=== PATIENT | male | born 1965 | race Two or more races ===

== ENCOUNTER 2020-08-17 12:12 | Outpatient (REF) | payer OTHER, SELFPAY ==
[2020-08-17 12:46] LABS: Basophils Absolute Auto 0.1 X10*3/uL (0.0-0.2); Basophils Percent Auto 1.9 % (0-2); Eosinophils Absolute Auto 0.9 X10*3/uL (0.0-0.4); Eosinophils Percent Auto 21.3 % (0-4); Hematocrit 42.2 % (42-52); Hemoglobin 13.6 g/dl (14.0-18.0); Imm Gran Abs Auto 0.01 X10*3/uL (0.00-0.03); Imm Gran Pct Auto 0.2 % (0.0-0.4); Lymphocytes Absolute Auto 1.8 X10*3/uL (1.2-4.9); Mean Corpuscular HGB Conc 32.2 g/dl (31.0-36.0); Mean Corpuscular Hemoglobin 31.1 pg (27.0-33.0); Mean Corpuscular Volume 96.6 fL (80-98); Mean Platelet Volume 10.8 fL (9.4-12.4); Monocytes Absolute Auto 0.5 X10*3/uL (0.1-1.2); Neutrophils Percent Auto 23.6 % (45-73); Platelet Count 218 X10*3/uL (160-400); Red Blood Count 4.37 X10*6/uL (4.60-5.80); Red Cell Distribution Width 14.4 % (11.0-16.0); White Blood Count 4.3 X10*3/uL (4.8-10.8)
[2020-08-17 13:17] LABS: Alanine Aminotransferase 19 U/L (0-40); Aspartate Amino Transferase 20 U/L (5-37); Estimated Glomerular Filt Rate > 60
[2020-08-17 13:22] LABS: MANUAL DIFF FLAG SCAN
[2020-08-17 13:48] LABS: SLIDE REVIEW VERIFIED
[2020-08-18 17:47] LABS: Absolute CD3 Count 1626 cells/uL (840-3060); Absolute CD4 Count 835 cells/uL (490-1740); Absolute CD8 Count 853 cells/uL (180-1170); Absolute Lymphocytes 1971 cells/uL (850-3900); CD4 CD8 Ratio 0.98 (0.86-5.00); Percent CD3 Cells 83 % (57-85); Percent CD4 Cells 42 % (30-61); Percent CD8 Cells 43 % (12-42)
[2020-08-20 15:47] LABS: HIV RNA PCR Qn Copies <20 NOT DETECTED copies/mL (NOT DETECTED); HIV RNA PCR Qn Log Copies <1.30 NOT DETECTED (NOT DETECTED)
== END 2020-08-17 12:13 | disposition home or self-care (01) ==
LOC: HO.LAB 12:12
PROVIDERS: Visit Provider Internal Medicine Infectious Disease
DX: B20 Human immunodeficiency virus [HIV] disease (principal)
CPT/HCPCS: 36415; 82565; 84450; 84460; 85025; 86359; 86360; 87536

== ENCOUNTER 2020-12-17 08:45 | Emergency (ER) | payer OTHER, SELFPAY ==
--- NOTE | ~2020-12-17 | CT_ITS ---
EXAMINATION: CT ABDOMEN AND PELVIS WITHOUT CONTRAST CLINICAL INFORMATION: Abdominal pain. No bowel movement in 5 days. Nausea. COMPARISON: CT abdomen and pelvis noncontrast 04/03/2020 TECHNIQUE: Multidetector volumetric imaging was performed from the superior aspect of the liver through the pubic symphysis. Sagittal and coronal reformatted images were obtained on the technologist's workstation. This CT examination was performed using dose optimization techniques as appropriate, variously including the following: *Automated exposure control *Adjustment of mA and/or kV according to patient size (this includes techniques or standardized protocols for targeted exams where dose is matched to indication/reason for exam; i.e. extremities or head) *Use of iterative reconstruction technique DLP: 347 mGy-cm FINDINGS: LUNG BASES: The visualized lung bases are unremarkable. LIVER, GALLBLADDER, AND BILIARY TREE: The liver is normal in size and smooth in contour. There is mild hepatic steatosis. No focal hepatic parenchymal lesion or intrahepatic ductal dilatation. The gallbladder is unremarkable with no evidence of radiopaque gallstones, gallbladder wall thickening, or obvious pericholecystic inflammatory changes. PANCREAS: Mildly atrophic. No duct dilatation or retroperitoneal inflammatory changes. SPLEEN: Normal in size. Small splenule again seen left upper quadrant, 1 cm. ADRENAL GLANDS: Mild fullness left adrenal stable. Right adrenal unremarkable. KIDNEYS AND URETERS: The kidneys are normal in size and smooth in contour and show no hydronephrosis. There is no hydroureter or perinephric stranding. Again, multiple small nonobstructing intrarenal calculi are present under 5 mm. No ureteral calculi. BLADDER: Unremarkable. GASTROINTESTINAL TRACT: There is moderate stool throughout the colon. There is no small or large bowel dilatation or focal inflammatory changes in the bowel or mesentery. No rectal fecal impaction. The appendix is not demonstrated with certainty and not visible on prior CT 2020 as well. There are no inflammatory changes around the terminal ileum or cecum. No ascites or fluid collection. ABDOMINAL WALL: No significant hernia is appreciated. LYMPH NODES: No lymphadenopathy. VASCULAR: Unremarkable. PELVIC VISCERA: Unremarkable. OSSEOUS STRUCTURES: Unremarkable. CT/CT abdomen pelvis wo con IMPRESSION: 1. Moderate stool throughout colon consistent with clinical history. No bowel obstruction or focal inflammatory changes. 2. Bilateral small nonobstructing renal calculi similar to prior CT 2020. No hydronephrosis or perinephric stranding.
[2020-12-17 09:28] VITALS: BP 156/100; PULSE 75; RESP 16; TEMP 36.6; O2SAT 99; BMI 25.1
--- NOTE | 2020-12-17 09:29 | ECG_ITS ---
Test Reason : CHEST PAIN Blood Pressure : / mmHG Vent. Rate : 070 BPM Atrial Rate : 070 BPM P-R Int : 168 ms QRS Dur : 106 ms QT Int : 414 ms P-R-T Axes : 063 067 056 degrees QTc Int : 447 ms Normal sinus rhythm Incomplete right bundle branch block Borderline ECG When compared with ECG of 02-MAY-2020 08:16, Vent. rate has decreased BY 36 BPM Referred By: Krista Thomas Electronically Signed By:TALIB LÓPEZ
--- NOTE | 2020-12-17 09:46 | ED_ITS ---
HPI - Abdominal Pain General Chief Complaint: Abdominal Pain Stated Complaint: ABD PAIN Time Seen by Provider: 12/17/20 09:29 Source: patient Mode of arrival: ambulatory Limitations: no limitations History of Present Illness HPI narrative: 55 y/o male with HIV, anxiety, depression, kidney stones, seizures, asthma who presents to the ED c/o upper & central abdominal pain for the last 5 days. He has not had a bowel movement in 5 days. He went to the pharmacy and got dulcolax with no improvement. He reports nausea but no vomiting. No fever or chills. He reports he walked to the ER from his home, about 1 mile when he develop chest pain on the walk. He arrives diaphoretic with reproducible right sided chest discomfort. Pain is constant, does not radiate and is aching in nature. He denies SOB. He states his whole body hurts. 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 MD elicited complaint: abdominal pain Pertinent past history: HIV Onset (ago): day(s) (5) Pain Consistency: constant Location: epigastric and periumbilical Severity: moderate Quality: cramping and aching Radiation: none Migration to: no migration Exacerbating factors: eating Relieving factors: nothing Associated symptoms: nausea and constipation Related Data Home Medications Medication Instructions Recorded Confirmed albuterol sulfate 90 mcg/actuation 2 puff INHALATION Q4-6H PRN 09/27/20 aerosol inhaler Previous Rx's Medication Instructions Recorded albuterol sulfate 90 mcg/actuation 2 puff PO Q4-6H PRN 30 Days #8.5 g 09/27/20 aerosol inhaler hydroxyzine HCl 25 mg tablet 25 mg PO Q8H PRN #90 tab 11/14/20 bisacodyl [Dulcolax (bisacodyl)] 10 mg MO DAILY PRN #12 ea 12/17/20 docusate sodium [Colace] 100 mg PO BID #30 cap 12/17/20 ibuprofen 600 mg PO Q8H PRN #10 tab 12/17/20 polyethylene glycol 3350 [Miralax] 17 g PO DAILY #119 g 12/17/20 Allergies Allergy/AdvReac Type Severity Reaction Status Date / Time codeine Allergy Mild RASH Unverified 05/27/20 15:16 [From Tylenol-Codeine #3] levofloxacin [From LEVAQUIN] Allergy Mild Rash Unverified 05/27/20 15:16 metoclopramide [From Reglan] Allergy Mild RASH Unverified 05/27/20 15:16 acetaminophen Allergy Unknown Verified 10/03/19 00:00 [Tylenol-Codeine #3] Motrin Allergy Unknown REflux Unverified 01/06/20 00:00 Penicillins [PENICILLINS] Allergy Unknown RASH Unverified 05/27/20 15:16 tramadol [From Ultram] AdvReac Mild N/V Unverified 05/27/20 15:16 SEASONAL ALLERGIES Allergy Intermediate EYE Uncoded 05/27/20 15:16 DRAINAGE penicillin Allergy Unknown Uncoded 01/06/20 00:00 Review of Systems Review of Systems Constitutional: No Fever, No Chills ENT/Mouth: No sore throat, No Rhinorrhea, No Swallowing Difficulty Eyes: No Eye Pain, No Swelling, No Redness Cardiovascular: + Chest Pain, No SOB, No Orthopnea, No Edema Respiratory: No Cough, No Sputum, No Wheezing, No dyspnea Gastrointestinal: +Nausea, No Vomiting, No Diarrhea, + abdominal Pain, No Hematochezia, No Melena Genitourinary: No Dysuria, No Urinary Frequency, No Hematuria Musculoskeletal: + joint pain, + Myalgias Skin: No Skin Lesions, No rash Neuro: No Weakness, No Numbness, No Dizziness, No Headache Psych: No Anxiety/Panic, No Depression Heme/Lymph: No Bruising, No Lymphadenopathy Endocrine: No Polyuria, No Polydipsia Physical Exam Vital Signs: Vital Signs: Last Vital Signs Temp 97.8 F 12/17/20 09:28 Pulse 80 12/17/20 12:19 Resp 18 12/17/20 12:19 BP 136/93 H 12/17/20 12:19 Pulse Ox 97 12/17/20 12:19 Body Mass Index 25.1 Appearance: Alert. Oriented X3. No acute distress. Eyes: Pupils equal, round and reactive to light. ENT: Pharynx normal. Neck: Normal inspection. Neck supple. CVS: Normal heart rate and rhythm. Pulses normal. Respiratory: No respiratory distress. Breath sounds normal. Right sided anterior chest wall tenderness. Abdomen: Softly distended with central and epigastric tenderness. No rebound or guarding. +BS x4 Skin: Skin warm and dry. Normal skin color. Normal skin turgor. No rashes. Extremities: No lower extremity edema. Neuro: Oriented X 3. No motor deficit. No sensory deficit. Course Course Course Narrative: 55 y/o male with history of HIV presenting with 5 days of abdominal pain in the setting of constipation. No clinical signs of obstruction. His chest pain is reproducible. Will get EKG, labs and CT scan for further evaluation. Reevaluation(s) Reevaluation #1: Labs are unremarkable. CT scan showing moderate stool burden without evidence of obstruction. EKG unchanged from prior with flat troponin. Chest discomfort is reproducible and likely muscular in nature. Will treat with lactulose and senna and reassess. Reevaluation #2: Patient feeling improved. Stable for discharge. MDM - Abdominal Pain Medical Records Attestation: I reviewed the patient's medical records. Lab Data Attestation: I reviewed the patient's lab results. Result diagrams: 12/17/20 10:09 12/17/20 10:09 Labs: Lab Results 12/17/20 12/17/20 12/17/20 Range/Units 10:09 10:09 10:09 WBC 4.0 L (4.8-10.8) X10*3/uL RBC 4.53 L (4.60-5.80) X10*6/uL Hgb 14.5 (14.0-18.0) g/dl Hct 44.2 (42-52) % MCV 97.6 (80-98) fL MCH 32.0 (27.0-33.0) pg MCHC 32.8 (31.0-36.0) g/dl RDW 12.8 (11.0-16.0) % Plt Count 230 (160-400) X10*3/uL MPV 10.7 (9.4-12.4) fL Immature Gran % (Auto) 0.3 (0.0-0.4) % Neut % (Auto) 56.8 (45-73) % Lymph % (Auto) 23.2 (20-40) % [place] % (Auto) 7.8 (2-11) % Eos % (Auto) 10.6 H (0-4) % Baso % (Auto) 1.3 (0-2) % Lymph # (Auto) 0.9 L (1.2-4.9) X10*3/uL [place] # (Auto) 0.3 (0.1-1.2) X10*3/uL Eos # (Auto) 0.4 (0.0-0.4) X10*3/uL Baso # (Auto) 0.1 (0.0-0.2) X10*3/uL Abs Immat Gran (auto) 0.01 (0.00-0.03) X10*3/uL Absolute Neuts (auto) 2.3 (2.0-8.3) X10*3/uL Absolute Nucleated RBC 0.000 (0.0-0.012) X10*3/uL Nucleated RBC % (auto) 0.0 (0.0-0.2) /100WBC Hold Blue Top SEE NOTE Sodium 139 (135-145) mmol/L Potassium 4.5 (3.3-5.1) mmol/L Chloride 100 (96-108) mmol/L Carbon Dioxide 32 H (22-29) mmol/L Anion Gap 12 (12-20) BUN 12 (9-16) mg/dL Creatinine 0.98 (0.5-1.4) mg/dL Estim Creat Clear Calc 86.9 Estimated GFR > 60 Random Glucose 107 (60-115) mg/dL Calcium 9.0 (8.4-10.2) mg/dL Magnesium 2.2 (1.6-2.6) mg/dL Total Bilirubin 0.7 (0.0-1.0) mg/dL Direct Bilirubin 0.3 (0.0-0.5) mg/dL AST 29 D (5-37) U/L ALT 32 (0-40) U/L Alkaline Phosphatase 70 (39-117) U/L Troponin I High Sens (<3.5-35.0) ng/L Total Protein 7.4 (6.5-8.0) g/dL Albumin 4.3 (3.5-5.0) g/dL Lipase 4 L (8-78) U/L 12/17/20 Range/Units 10:09 WBC (4.8-10.8) X10*3/uL RBC (4.60-5.80) X10*6/uL Hgb (14.0-18.0) g/dl Hct (42-52) % MCV (80-98) fL MCH (27.0-33.0) pg MCHC (31.0-36.0) g/dl RDW (11.0-16.0) % Plt Count (160-400) X10*3/uL MPV (9.4-12.4) fL Immature Gran % (Auto) (0.0-0.4) % Neut % (Auto) (45-73) % Lymph % (Auto) (20-40) % [place] % (Auto) (2-11) % Eos % (Auto) (0-4) % Baso % (Auto) (0-2) % Lymph # (Auto) (1.2-4.9) X10*3/uL [place] # (Auto) (0.1-1.2) X10*3/uL Eos # (Auto) (0.0-0.4) X10*3/uL Baso # (Auto) (0.0-0.2) X10*3/uL Abs Immat Gran (auto) (0.00-0.03) X10*3/uL Absolute Neuts (auto) (2.0-8.3) X10*3/uL Absolute Nucleated RBC (0.0-0.012) X10*3/uL Nucleated RBC % (auto) (0.0-0.2) /100WBC Hold Blue Top Sodium (135-145) mmol/L Potassium (3.3-5.1) mmol/L Chloride (96-108) mmol/L Carbon Dioxide (22-29) mmol/L Anion Gap (12-20) BUN (9-16) mg/dL Creatinine (0.5-1.4) mg/dL Estim Creat Clear Calc Estimated GFR Random Glucose (60-115) mg/dL Calcium (8.4-10.2) mg/dL Magnesium (1.6-2.6) mg/dL Total Bilirubin (0.0-1.0) mg/dL Direct Bilirubin (0.0-0.5) mg/dL AST (5-37) U/L ALT (0-40) U/L Alkaline Phosphatase (39-117) U/L Troponin I High Sens < 3.5 (<3.5-35.0) ng/L Total Protein (6.5-8.0) g/dL Albumin (3.5-5.0) g/dL Lipase (8-78) U/L ECG Data Attestation: I personally reviewed and interpreted this ECG as follows: ECG interpretation date: 12/17/20 ECG interpretation time: 09:56 Prior ECG tracings: available for review Interpretation: normal sinus rhythm, HR 70 bpm, incomplete RBBB, normal MO interval, normal QTC unchanged from prior Discharge Plan Discharge Clinical Impression: Acute chest wall pain Constipation Qualifiers: Constipation type: unspecified constipation type Qualified Code(s): K59.00 - Constipation, unspecified Patient Disposition: Home, Self-Care Instructions: Constipation (ED), High Fiber Diet (ED) Additional Instructions: Your lab workup today was unremarkable. Your EKG was unchanged from prior. Your CT scan showed constipation - this is what is causing your abdominal discomfort. Recommend increasing your water intake and fiber intake. Recommend Miralax 17 gram daily, Colace 100 mg two times per day. Recommend NEEDED dulcolax suppository if you have not had a bowel movement by tonight. Your chest wall pain is likely muscular in nature. Recommend rest, no heavy listing. Take Tylenol and/or Motrin as needed for pain. If you have any worsening symptoms come back to the ER for further evaluation. Prescriptions: New polyethylene glycol 3350 [Miralax] 17 gram/dose powder 17 g PO DAILY Qty: 119 RF: 0 docusate sodium [Colace] 100 mg capsule 100 mg PO BID Qty: 30 RF: 0 bisacodyl [Dulcolax (bisacodyl)] 10 mg suppository 10 mg MO DAILY PRN (Reason: constipation) Qty: 12 RF: 0 ibuprofen 600 mg tablet 600 mg PO Q8H PRN (Reason: pain) Qty: 10 RF: 0 No Action albuterol sulfate [ProAir HFA] 90 mcg/actuation HFA aerosol inhaler 2 puff inhalation Q4-6H PRNRF: 0 albuterol sulfate 90 mcg/actuation HFA aerosol inhaler 2 puff PO Q4-6H PRN (Reason: for dyspnea) 30 Days Qty: 8.5 RF: 2 hydroxyzine HCl 25 mg tablet 25 mg PO Q8H PRN (Reason: for anxiety) Qty: 90 RF: 0 PMFSH Past Medical History Attestation statement: The following information was validated with the patient. Medical History Depression Hemorrhoids HIV (human immunodeficiency virus infection) Substance abuse Social History Social History Advance Directives: No Advance Directives Information Provided: No
[2020-12-17 10:14] LABS: MANUAL DIFF FLAG NO
[2020-12-17] MEDS: 0.9 % Sodium Chloride 1,000 ML 999 ML IVCONT (10:18)
[2020-12-17] MEDS: ondansetron HCL 4 MG/2 ML VIAL IVPUSH (10:18)
[2020-12-17 10:31] LABS: Basophils Absolute Auto 0.1 X10*3/uL (0.0-0.2); Basophils Percent Auto 1.3 % (0-2); Eosinophils Absolute Auto 0.4 X10*3/uL (0.0-0.4); Eosinophils Percent Auto 10.6 % (0-4); Hematocrit 44.2 % (42-52); Hemoglobin 14.5 g/dl (14.0-18.0); Imm Gran Abs Auto 0.01 X10*3/uL (0.00-0.03); Imm Gran Pct Auto 0.3 % (0.0-0.4); Lymphocytes Absolute Auto 0.9 X10*3/uL (1.2-4.9); Lymphocytes Percent Auto 23.2 % (20-40); Mean Corpuscular HGB Conc 32.8 g/dl (31.0-36.0); Mean Corpuscular Volume 97.6 fL (80-98); Mean Platelet Volume 10.7 fL (9.4-12.4); Monocytes Absolute Auto 0.3 X10*3/uL (0.1-1.2); Monocytes Percent Auto 7.8 % (2-11); Neutrophils Absolute Auto 2.3 X10*3/uL (2.0-8.3); Neutrophils Percent Auto 56.8 % (45-73); Platelet Count 230 X10*3/uL (160-400); Red Blood Count 4.53 X10*6/uL (4.60-5.80); Red Cell Distribution Width 12.8 % (11.0-16.0)
[2020-12-17 10:49] LABS: Alanine Aminotransferase 32 U/L (0-40); Albumin Level 4.3 g/dL (3.5-5.0); Alkaline Phosphatase 70 U/L (39-117); Anion Gap 12 (12-20); Aspartate Amino Transferase 29 U/L (5-37); Bilirubin Direct 0.3 mg/dL (0.0-0.5); Bilirubin Total 0.7 mg/dL (0.0-1.0); Blood Urea Nitrogen 12 mg/dL (9-16); Carbon Dioxide 32 mmol/L (22-29); Chloride 100 mmol/L (96-108); Creatinine Clr Calc Pharmacy 86.9; Estimated Glomerular Filt Rate > 60; Glucose Random 107 mg/dL (60-115); Lipase 4 U/L (8-78); Magnesium 2.2 mg/dL (1.6-2.6); Potassium 4.5 mmol/L (3.3-5.1); Sodium 139 mmol/L (135-145); Total Protein 7.4 g/dL (6.5-8.0)
[2020-12-17 10:52] LABS: Troponin-I High Sensitivity < 3.5 ng/L (<3.5-35.0)
[2020-12-17] MEDS: Lactulose 20 GM/30 ML SOLUTION PO (11:45)
--- NOTE | 2020-12-17 12:07 | PC.NURSE ---
medicated per emar, tolerating po w/o issue. updated about plan of care by provider.
[2020-12-17 12:19] VITALS: BP 136/93; PULSE 80; RESP 18; O2SAT 97
== END 2020-12-17 13:08 | disposition home or self-care (01) ==
PROVIDERS: Physician Assistant; Emergency Provider Emergency Medicine; PCP Internal Medicine
DX: R07.89 Other chest pain (principal); K59.00 Constipation, unspecified; B20 Human immunodeficiency virus [HIV] disease; J45.909 Unspecified asthma, uncomplicated; F41.9 Anxiety disorder, unspecified; F19.10 Other psychoactive substance abuse, uncomplicated; Z87.442 Personal history of urinary calculi
CPT/HCPCS: 36415; 74176; 80048; 80076; 83690; 83735; 84484; 85025; 93005; 96360; 96374; 99284; J2405

== ENCOUNTER 2021-01-19 11:03 | Outpatient (REF) | payer OTHER, SELFPAY ==
--- NOTE | ~2021-01-19 | XR_ITS ---
EXAMINATION: LEFT SHOULDER AND CERVICAL SPINE X-RAY CLINICAL INFORMATION: Left shoulder pain COMPARISON: Previous cervical spine x-ray most recent April 2019 TECHNIQUE: 5 views of the cervical spine. 4 views of the left shoulder FINDINGS: Left shoulder: Bone alignment is normal. No acute fracture or dislocation is seen. There may be old left rib fractures. The joint spaces are normal. Soft tissues are normal. Cervical spine: Bone alignment is normal. No fracture or dislocation is seen. There is degenerative spondylosis and degenerative disc disease at C3-C4. There is right-sided neural foraminal narrowing from bony osteophyte at C3-C4. There is left-sided neuroforaminal narrowing from bony osteophyte at C2-C3, C3-C4 and C4-C5. Prevertebral soft tissues are normal. XR/XR cervical spine min 6V IMPRESSION: Left shoulder: Unremarkable exam. Cervical spine: Degenerative spondylosis and degenerative disc disease at C3-C4. Bilateral neural foraminal narrowing from bony osteophyte, left greater than right.
--- NOTE | ~2021-01-19 | XR_ITS ---
EXAMINATION: LEFT SHOULDER AND CERVICAL SPINE X-RAY CLINICAL INFORMATION: Left shoulder pain COMPARISON: Previous cervical spine x-ray most recent April 2019 TECHNIQUE: 5 views of the cervical spine. 4 views of the left shoulder FINDINGS: Left shoulder: Bone alignment is normal. No acute fracture or dislocation is seen. There may be old left rib fractures. The joint spaces are normal. Soft tissues are normal. Cervical spine: Bone alignment is normal. No fracture or dislocation is seen. There is degenerative spondylosis and degenerative disc disease at C3-C4. There is right-sided neural foraminal narrowing from bony osteophyte at C3-C4. There is left-sided neuroforaminal narrowing from bony osteophyte at C2-C3, C3-C4 and C4-C5. Prevertebral soft tissues are normal. XR/XR shoulder LT min 2V IMPRESSION: Left shoulder: Unremarkable exam. Cervical spine: Degenerative spondylosis and degenerative disc disease at C3-C4. Bilateral neural foraminal narrowing from bony osteophyte, left greater than right.
[2021-01-19 13:31] LABS: MANUAL DIFF FLAG NO
[2021-01-19 13:44] LABS: Basophils Percent Auto 0.4 % (0-2); Eosinophils Absolute Auto 0.3 X10*3/uL (0.0-0.4); Eosinophils Percent Auto 4.1 % (0-4); Hematocrit 42.8 % (42-52); Hemoglobin 14.4 g/dl (14.0-18.0); Imm Gran Abs Auto 0.02 X10*3/uL (0.00-0.03); Imm Gran Pct Auto 0.3 % (0.0-0.4); Lymphocytes Absolute Auto 0.7 X10*3/uL (1.2-4.9); Lymphocytes Percent Auto 9.4 % (20-40); Mean Corpuscular HGB Conc 33.6 g/dl (31.0-36.0); Mean Corpuscular Hemoglobin 32.3 pg (27.0-33.0); Mean Platelet Volume 11.2 fL (9.4-12.4); Monocytes Absolute Auto 0.7 X10*3/uL (0.1-1.2); Neutrophils Absolute Auto 6.1 X10*3/uL (2.0-8.3); Neutrophils Percent Auto 76.8 % (45-73); Platelet Count 225 X10*3/uL (160-400); Red Blood Count 4.46 X10*6/uL (4.60-5.80); Red Cell Distribution Width 12.6 % (11.0-16.0); White Blood Count 7.9 X10*3/uL (4.8-10.8)
[2021-01-19 13:52] LABS: Alanine Aminotransferase 25 U/L (0-40); Aspartate Amino Transferase 20 U/L (5-37); Estimated Glomerular Filt Rate > 60
[2021-01-19 14:19] LABS: Syphilis Screen Nonreactive (Nonreactive)
[2021-01-19 15:30] LABS: CT PCR NOT DETECTED (Not Detect.); NG PCR NOT DETECTED (Not Detect.)
[2021-01-20 12:57] LABS: Absolute CD3 Count 557 cells/uL (840-3060); Absolute CD4 Count 276 cells/uL (490-1740); Absolute CD8 Count 305 cells/uL (180-1170); Absolute Lymphocytes 714 cells/uL (850-3900); CD4 CD8 Ratio 0.91 (0.86-5.00); HIV RNA PCR Qn Copies <20 NOT DETECTED copies/mL (NOT DETECTED); HIV RNA PCR Qn Log Copies <1.30 NOT DETECTED (NOT DETECTED); Percent CD3 Cells 78 % (57-85); Percent CD4 Cells 39 % (30-61); Percent CD8 Cells 43 % (12-42)
[2021-01-21 07:42] LABS: HBsAGNum1 0.33 S/CO (0.00-0.99); Hepatitis B Surface Antigen Negative (Negative)
[2021-01-21 13:11] LABS: HCV Log PCR <1.18 NOT DETECTED Log IU/mL (NOT DETECTED); HepC Viral Load <15 NOT DETECTED IU/mL (NOT DETECTED)
[2021-01-21 23:42] LABS: TS Negative Control Passed; TS Panel A 0; TS Panel B 0; TS Positive Control Passed; TSpotTB Negative (SeeBelow)
== END 2021-01-19 11:04 | disposition home or self-care (01) ==
LOC: HO.XRAY 11:03
PROVIDERS: Absent Provider Internal Medicine Infectious Disease; PCP Internal Medicine; Visit Provider Family Medicine
DX: B20 Human immunodeficiency virus [HIV] disease (principal)
CPT/HCPCS: 72052; 73030; 82565; 84450; 84460; 85025; 86359; 86360; 86481; 86780; 87340; 87491; 87522; 87536; 87591

== ENCOUNTER 2021-04-21 12:09 | Inpatient (IN) | payer OTHER, SELFPAY ==
[2021-04-21] VITALS (11 sets, daily range): BP systolic 124–185; BP diastolic 70–103; PULSE 64–90; RESP 14–25; TEMP 36.5–37.1; O2SAT 92–97; BMI 26.4
--- NOTE | ~2021-04-21 | CT_ITS ---
EXAMINATION: CT ANGIOGRAM OF THE CHEST WITH AND WITHOUT CONTRAST (CT PULMONARY ANGIOGRAM FOR PE) CLINICAL INFORMATION: Reason for Exam sob/cp, elevated d dimer, r/o pe COMPARISON: Chest radiographs 04/21/2021, CT abdomen noncontrast 12/17/2020, CTA chest 01/21/2018. TECHNIQUE: Prior to contrast administration, noncontrast localization images were obtained. Subsequently, multidetector volumetric imaging was performed from the thoracic inlet to below the diaphragms following the administration of 65 mL Omnipaque 350 intravenous contrast. Sagittal, coronal, and MIP oblique sagittal reformatted images were obtained on the CT workstation, uploaded to PACS, and reviewed. This CT examination was performed using dose optimization techniques as appropriate, variously including the following: *Automated exposure control *Adjustment of mA and/or kV according to patient size (this includes techniques or standardized protocols for targeted exams where dose is matched to indication/reason for exam; i.e. extremities or head) *Use of iterative reconstruction technique Total exam dose-length product 267 mGy-cm FINDINGS: QUALITY OF STUDY/CONTRAST BOLUS: Satisfactory. PULMONARY ARTERIES: No central or segmental pulmonary emboli. THORACIC AORTA: No aneurysm or dissection. LUNG: There is airspace consolidation right posterior basal lower lobe. Within the consolidation is a 1.3 cm round low-attenuation which could represent early abscess formation. There is no cavitation or gas bubbles. There is subsegmental atelectasis left base with some groundglass stranding. The remainder the lungs are clear. There is no pneumothorax. The central airways are clear and there is no endobronchial lesion or bronchiectasis. PLEURA: No pleural effusion or pneumothorax. MEDIASTINUM: Normal heart size. No pericardial effusion. There is a 1.1 cm subcarinal node. No bulky mediastinal or hilar adenopathy. No evidence of septal bowing or right heart strain. CHEST WALL/AXILLA: No axillary or internal mammary lymphadenopathy. OSSEOUS STRUCTURES: Old healed left lateral third rib fracture similar to prior CT 2018. There is stable loss of height midthoracic vertebral body similar to prior CT. No acute bony abnormality. UPPER ABDOMEN: Unremarkable. No reflux of contrast into the hepatic veins to suggest elevated right heart pressures. CT/CT angio chest PE protocol IMPRESSION: 1. No pulmonary embolism. No thoracic aortic dissection. 2. Consolidation right posterior basal lower lobe. 1.3 cm low-attenuation within consolidation could represent early abscess formation. No cavity or gas bubbles. 3. No pneumothorax, pneumomediastinum, or effusion. VTE: negative
--- NOTE | ~2021-04-21 | XR_ITS ---
EXAMINATION: XR CHEST CLINICAL INFORMATION: Chest pain Pneumonia. COMPARISON: April 03, 2020 and July 30, 2019 TECHNIQUE: AP portable view of the chest was obtained. FINDINGS: There is region of disease seen within the left lower lung. No pneumothorax or pleural effusion identified. Heart normal size. No evidence of pulmonary edema. XR/XR chest 1V IMPRESSION: Left lower lung disease.
--- NOTE | 2021-04-21 12:20 | ED_ITS ---
HPI - General Adult General Chief complaint: Dyspnea Stated complaint: sob, r sided cp Time Seen by Provider: 04/21/21 12:19 Source: patient Mode of arrival: ambulatory Limitations: no limitations History of Present Illness HPI narrative: 55 y/o male with HIV on Biktarvy with undetectable viral load 01/2021, anxiety, depression, kidney stones, seizures, asthma, hypertension, migraines here with complaints of right-sided chest discomfort which is worsened with palpation, deep breathing with associated shortness of breath and cough with yellow sputum production. No fevers or chills. No leg swelling or pain. Patient was seen at [facility] and referred into the emergency department for further evaluation. Fully vaccinated for COVID No sick contacts or recent travel. No history of PCP pneumonia. No history of PE or DVT. Related Data Home Medications Medication Instructions Recorded Confirmed amitriptyline 50 mg tablet 2 tab PO BEDTIME 04/21/21 04/21/21 amlodipine 5 mg tablet 1 tab PO DAILY 04/21/21 04/21/21 bictegravir 50 mg-emtricitabine 1 tab PO DAILY 04/21/21 04/21/21 200 mg-tenofovir alafenam 25 mg tablet (Biktarvy) clonazepam 1 mg tablet 1 tab PO BID 04/21/21 04/21/21 diphenhydramine HCl 25 mg capsule 2 cap PO BEDTIME PRN 04/21/21 04/21/21 (Banophen) fluticasone propionate 110 1 puff PO BID 04/21/21 04/21/21 mcg/actuation HFA aerosol inhaler (Flovent HFA) gabapentin 600 mg tablet 1 tab PO TID 04/21/21 04/21/21 mirtazapine 30 mg tablet 1 tab PO BEDTIME 04/21/21 04/21/21 propranolol 120 mg capsule,24 1 cap PO DAILY 04/21/21 04/21/21 hr,extended release tramadol 50 mg tablet 1 tab PO DAILY PRN 04/21/21 04/21/21 Previous Rx's Medication Instructions Recorded ibuprofen 600 mg tablet 600 mg PO Q8H PRN #10 tab 12/17/20 polyethylene glycol 3350 17 17 g PO DAILY #119 g 12/17/20 gram/dose oral powder (Miralax) albuterol sulfate 90 mcg/actuation 2 puff PO Q4-6H PRN #8.5 g 04/18/21 aerosol inhaler Allergies Allergy/AdvReac Type Severity Reaction Status Date / Time codeine Allergy Mild RASH Unverified 05/27/20 15:16 [From Tylenol-Codeine #3] levofloxacin [From LEVAQUIN] Allergy Mild Rash Unverified 05/27/20 15:16 metoclopramide [From Reglan] Allergy Mild RASH Unverified 05/27/20 15:16 acetaminophen Allergy Unknown Verified 10/03/19 00:00 [Tylenol-Codeine #3] Motrin Allergy Unknown REflux Unverified 01/06/20 00:00 Penicillins [PENICILLINS] Allergy Unknown RASH Unverified 05/27/20 15:16 tramadol [From Ultram] AdvReac Mild N/V Unverified 05/27/20 15:16 SEASONAL ALLERGIES Allergy Intermediate EYE Uncoded 05/27/20 15:16 DRAINAGE penicillin Allergy Unknown Uncoded 01/06/20 00:00 Review of Systems Review of Systems: Yes all other systems are reviewed and are negative Constitutional: Constitutional: Reports no additional constitutional complaints, Denies body ache(s), Denies chills, Denies fever(s), Denies headach e(s) and Denies weakness Eyes: Eyes: Reports no additional eye complaints and Denies change in vision ENT: Reports system reviewed and no additional complaints, except as documented, Denies dizziness, Denies headache(s), Denies nasal congestion, Denies nasal discharge and Denies neck pain Cardiovascular: Cardiovascular: Reports no additional cardiovascular com plaints, Reports chest pain, Denies leg edema and Reports dyspnea Respiratory: Respiratory: Reports no additional respiratory complaints, Reports cough and Reports dyspnea Gastrointestinal: Gastrointestinal: Reports no additional gastrointestinal complaints, Denies abdominal pain, Denies diarrhea, Denies nausea and Denies vomiting Genitourinary: Genitourinary: Denies urinary incontinence Musculoskeletal: Musculoskeletal: Reports no additional musculoskeletal complaints, Denies back pain, Denies arthralgias, Denies joint swelling, Denies neck pain, Denies numbness and Denies tingling Integumentary/Breasts: Skin/Breast: Reports system reviewed and no additional complaints, except as docu and Denies rash Neurologic: Reports system reviewed and no additional complaints, except as documented, Denies Abnormal speech present, Denies dizziness, Denies headache(s), Denies numbness, Denies tingling and Denies weakness PMF Past Medical History Attestation statement: The following information was validated with the patient. Source: old records reviewed and nursing notes reviewed Medical History Depression Hemorrhoids HIV (human immunodeficiency virus infection) Substance abuse Social History Social History Alcohol intake: never Patient Tobacco Use Status: Never used Tobacco Use of substances other than those prescribed or required for medical reasons: No Advance Directives: No Advance Directives Information Provided: No Physical Exam Vital Signs: Vital Signs: Last Vital Signs Temp 98 F 04/21/21 16:12 Pulse 90 04/21/21 19:03 Resp 16 04/21/21 19:03 BP 151/103 H 04/21/21 19:03 Pulse Ox 93 04/21/21 19:03 Body Mass Index 26.4 Const: General: cooperative, healthy appearing, comfortable and no acute distress Orientation/consciousness: patient oriented x3 Limitations: no limitations HENMT: Head: Yes normal to inspection Ears: hearing grossly normal bilatera lly General nose exam: Normal external nose present Face and sinus: Yes normal facial exam Mouth: Normal oral and palatal mucosa present Throat: Yes posterior oropharynx normal Eyes: General: appearance normal, both eyes and all related structures Pupils: Equal, round and reactive pupils present Neck: Neck: Yes normal visual inspection Chest: Chest palpation & inspection: normal inspection of the chest and tenderness (Right chest wall tender to palpate, worsened with deep breathing) Resp: Effort & Inspection: normal respiratory effort Auscultation: clear to auscultation bilaterally Cardio: Rate: regular rate Rhythm: regular rhythm Peripheral pulses: Peripheral pulses 2+ throughout GI: Inspection: Yes normal to inspection Palpation (GI): Soft to palpation and nontender Auscultation: normal bowel sounds Back/Spine/Pelvis: Thoracic/Lumbar Spine: thoracic and lumbar spine normal to inspection Skin: General skin exam: no rashes or lesions noted Neuro: General: patient oriented x3, no focal motor deficits and normal sensation to monofilament Cranial nerves: Yes Equal, round and reactive pupils present Cognition (Neuro): normal cognition Speech: No Abnormal speech present Gait exam (Neuro): Normal gait present Motor exam (neuro): 5/5 motor strength present throughout Extrem: General: Yes normal to inspection, Yes no pedal edema and Yes no calf tenderness Course Course Course Narrative: 56-year-old male here with complaints of right-sided chest pain for the last few days with associated cough and shortness of breath. Seen at [facility] and sent in for further evaluation. On exam the patient's pain is more musculoskeletal but does have some pleuritic nature to it. Therefore will check chest x-ray, labs, EKG, covid screen. Give aspirin, morphine and re-asesss. 1315-CXR with LLL PNA. d dimer elevated, with pleuritic CP/SOB. CTA ordered to r/o pe. 1615- MPRESSION: 1. No pulmonary embolism. No thoracic aortic dissection. 2. Consolidation right posterior basal lower lobe. 1.3 cm low-attenuation within consolidation could represent early abscess formation. No cavity or gas bubbles. 3. No pneumothorax, pneumomediastinum, or effusion. ?Discussed with medicine. Patient has no hypoxia and ambulated with RA saturation 95%.. No leukocytosis. Hemodynamically stable. Last CD4 on January of 2021 was 267. Recommended discussion with infectious disease. Call out to Dr. Mckeon to discuss. 1814-Unable to reach ID. WIll re-attempt medicine to see if admission is warranted in this immunocompromised patient. CT c/w with PNA. At this time infection is suspected. Antibiotics ordered. 1899-Spoke to Dr Davila who accepted admission pending ID input. 1999-Spoke to Dr Mckeon. Recommended ceftriaxone/clindamycin and admission. Dr Davila was informed. Medical Decision Making MDM Narrative Medical decision making narrative: ACS, PE, Lab Data Result diagrams: 04/21/21 12:57 04/21/21 12:57 Labs: Lab Results 04/21/21 04/21/21 04/21/21 Range/Units 12:57 12:57 12:57 WBC 7.8 (4.8-10.8) X10*3/uL RBC 4.49 L (4.60-5.80) X10*6/uL Hgb 14.3 (14.0-18.0) g/dl Hct 43.7 (42-52) % MCV 97.3 (80-98) fL MCH 31.8 (27.0-33.0) pg MCHC 32.7 (31.0-36.0) g/dl RDW 13.9 (11.0-16.0) % Plt Count 240 (160-400) X10*3/uL MPV 11.3 (9.4-12.4) fL Immature Gran % (Auto) 0.3 (0.0-0.4) % Neut % (Auto) 64.5 (45-73) % Lymph % (Auto) 14.9 L (20-40) % [place] % (Auto) 11.2 H (2-11) % Eos % (Auto) 8.1 H (0-4) % Baso % (Auto) 1.0 (0-2) % Lymph # (Auto) 1.2 (1.2-4.9) X10*3/uL [place] # (Auto) 0.9 (0.1-1.2) X10*3/uL Eos # (Auto) 0.6 H (0.0-0.4) X10*3/uL Baso # (Auto) 0.1 (0.0-0.2) X10*3/uL Abs Immat Gran (auto) 0.02 (0.00-0.03) X10*3/uL Absolute Neuts (auto) 5.0 (2.0-8.3) X10*3/uL Absolute Nucleated RBC 0.000 (0.0-0.012) X10*3/uL Nucleated RBC % (auto) 0.0 (0.0-0.2) /100WBC PT 12.8 (9.9-13.0) SEC INR 1.1 (0.9-1.1) D-Dimer 394 NG/ML Sodium 142 (135-145) mmol/L Potassium 4.3 (3.3-5.1) mmol/L Chloride 104 (96-108) mmol/L Carbon Dioxide 30 H (22-29) mmol/L Anion Gap 12 (12-20) BUN 8 L (9-16) mg/dL Creatinine 0.93 (0.5-1.4) mg/dL Estim Creat Clear Calc 70.5 Estimated GFR > 60 Random Glucose 93 (60-115) mg/dL Lactic Acid (0.5-2.0) mmol/L Calcium 9.6 D (8.4-10.2) mg/dL Magnesium 2.1 (1.6-2.6) mg/dL Total Bilirubin 0.7 (0.0-1.0) mg/dL Direct Bilirubin 0.4 (0.0-0.5) mg/dL AST 68 H (5-37) U/L ALT 118 H (0-40) U/L Alkaline Phosphatase 155 H D (39-117) U/L Troponin I High Sens (<3.5-35.0) ng/L B-Natriuretic Peptide (<100) pg/mL Total Protein 7.8 (6.5-8.0) g/dL Albumin 4.1 (3.5-5.0) g/dL COVID-19 (TAMMIE) (Negative) COVID-19 Clin Com 04/21/21 04/21/21 04/21/21 Range/Units 12:57 12:57 12:57 WBC (4.8-10.8) X10*3/uL RBC (4.60-5.80) X10*6/uL Hgb (14.0-18.0) g/dl Hct (42-52) % MCV (80-98) fL MCH (27.0-33.0) pg MCHC (31.0-36.0) g/dl RDW (11.0-16.0) % Plt Count (160-400) X10*3/uL MPV (9.4-12.4) fL Immature Gran % (Auto) (0.0-0.4) % Neut % (Auto) (45-73) % Lymph % (Auto) (20-40) % [place] % (Auto) (2-11) % Eos % (Auto) (0-4) % Baso % (Auto) (0-2) % Lymph # (Auto) (1.2-4.9) X10*3/uL [place] # (Auto) (0.1-1.2) X10*3/uL Eos # (Auto) (0.0-0.4) X10*3/uL Baso # (Auto) (0.0-0.2) X10*3/uL Abs Immat Gran (auto) (0.00-0.03) X10*3/uL Absolute Neuts (auto) (2.0-8.3) X10*3/uL Absolute Nucleated RBC (0.0-0.012) X10*3/uL Nucleated RBC % (auto) (0.0-0.2) /100WBC PT (9.9-13.0) SEC INR (0.9-1.1) D-Dimer NG/ML Sodium (135-145) mmol/L Potassium (3.3-5.1) mmol/L Chloride (96-108) mmol/L Carbon Dioxide (22-29) mmol/L Anion Gap (12-20) BUN (9-16) mg/dL Creatinine (0.5-1.4) mg/dL Estim Creat Clear Calc Estimated GFR Random Glucose (60-115) mg/dL Lactic Acid 1.0 (0.5-2.0) mmol/L Calcium (8.4-10.2) mg/dL Magnesium (1.6-2.6) mg/dL Total Bilirubin (0.0-1.0) mg/dL Direct Bilirubin (0.0-0.5) mg/dL AST (5-37) U/L ALT (0-40) U/L Alkaline Phosphatase (39-117) U/L Troponin I High Sens < 3.5 (<3.5-35.0) ng/L B-Natriuretic Peptide 22 (<100) pg/mL Total Protein (6.5-8.0) g/dL Albumin (3.5-5.0) g/dL COVID-19 (TAMMIE) Negative (Negative) COVID-19 Clin Com See Note Imaging Data Chest x-ray: Attestation: I personally reviewed and interpreted this imaging study as follows: Radiologist's impression: EXAMINATION: XR CHEST CLINICAL INFORMATION: Chest pain Pneumonia. COMPARISON: April 03, 2020 and July 30, 2019 TECHNIQUE: AP portable view of the chest was obtained. FINDINGS: There is region of disease seen within the left lower lung. No pneumothorax or pleural effusion identified. Heart normal size. No evidence of pulmonary edema. XR/XR chest 1V IMPRESSION: Left lower lung disease. ? CT scan - chest: Radiologist's impression: MPRESSION: 1. No pulmonary embolism. No thoracic aortic dissection. 2. Consolidation right posterior basal lower lobe. 1.3 cm low-attenuation within consolidation could represent early abscess formation. No cavity or gas bubbles. 3. No pneumothorax, pneumomediastinum, or effusion. ? ECG Data Attestation: I personally reviewed and interpreted this ECG as follows: Interpretation: Normal sinus rhythm with the rate of 69, T-wave inversions lead 1. Normal ME, normal QRS, QTC Discharge Plan Discharge Clinical Impression: Pneumonia Patient Disposition: Admitted As Inpatient
--- NOTE | 2021-04-21 12:25 | ECG_ITS ---
Test Reason : DIFFICULTY BREATHING Blood Pressure : / mmHG Vent. Rate : 069 BPM Atrial Rate : 069 BPM P-R Int : 158 ms QRS Dur : 102 ms QT Int : 404 ms P-R-T Axes : 073 072 054 degrees QTc Int : 432 ms Normal sinus rhythm Incomplete right bundle branch block Borderline ECG When compared with ECG of 17-DEC-2020 09:41, No significant change was found Referred By: Mercedes Marte Electronically Signed By:ZHANG OCHOA MD
[2021-04-21] MEDS: Aspirin 81 MG TAB.CHEW 324 MG PO (12:43)
[2021-04-21] MEDS: Morphine Sulfate 4 MG/ML CARTRIDGE IVPUSH ×3 (12:43→22:34)
[2021-04-21 13:04] LABS: MANUAL DIFF FLAG NO
[2021-04-21 13:06] LABS: Basophils Absolute Auto 0.1 X10*3/uL (0.0-0.2); Eosinophils Absolute Auto 0.6 X10*3/uL (0.0-0.4); Eosinophils Percent Auto 8.1 % (0-4); Hematocrit 43.7 % (42-52); Hemoglobin 14.3 g/dl (14.0-18.0); Imm Gran Abs Auto 0.02 X10*3/uL (0.00-0.03); Imm Gran Pct Auto 0.3 % (0.0-0.4); Lymphocytes Absolute Auto 1.2 X10*3/uL (1.2-4.9); Lymphocytes Percent Auto 14.9 % (20-40); Mean Corpuscular HGB Conc 32.7 g/dl (31.0-36.0); Mean Corpuscular Hemoglobin 31.8 pg (27.0-33.0); Mean Corpuscular Volume 97.3 fL (80-98); Mean Platelet Volume 11.3 fL (9.4-12.4); Monocytes Absolute Auto 0.9 X10*3/uL (0.1-1.2); Monocytes Percent Auto 11.2 % (2-11); Neutrophils Percent Auto 64.5 % (45-73); Platelet Count 240 X10*3/uL (160-400); Red Blood Count 4.49 X10*6/uL (4.60-5.80); Red Cell Distribution Width 13.9 % (11.0-16.0); White Blood Count 7.8 X10*3/uL (4.8-10.8)
[2021-04-21 13:11] LABS: INTERNATIONAL NORM RATIO 1.1 (0.9-1.1); Prothrombin Time 12.8 SEC (9.9-13.0)
[2021-04-21 13:13] LABS: D Dimer 394 NG/ML
[2021-04-21 13:21] LABS: COVID-19 Test Negative (Negative)
[2021-04-21 13:34] LABS: B Type Natriuretic Peptide 22 pg/mL (<100); Troponin-I High Sensitivity < 3.5 ng/L (<3.5-35.0)
[2021-04-21 13:53] LABS: Alanine Aminotransferase 118 U/L (0-40); Albumin Level 4.1 g/dL (3.5-5.0); Alkaline Phosphatase 155 U/L (39-117); Anion Gap 12 (12-20); Aspartate Amino Transferase 68 U/L (5-37); Bilirubin Direct 0.4 mg/dL (0.0-0.5); Bilirubin Total 0.7 mg/dL (0.0-1.0); Blood Urea Nitrogen 8 mg/dL (9-16); Calcium 9.6 mg/dL (8.4-10.2); Carbon Dioxide 30 mmol/L (22-29); Chloride 104 mmol/L (96-108); Creatinine Clr Calc Pharmacy 70.5; Estimated Glomerular Filt Rate > 60; Glucose Random 93 mg/dL (60-115); Magnesium 2.1 mg/dL (1.6-2.6); Potassium 4.3 mmol/L (3.3-5.1); Sodium 142 mmol/L (135-145); Total Protein 7.8 g/dL (6.5-8.0)
[2021-04-21] MEDS: iohexoL 350 MG/ML 100 ML INFUS..BTL IV (15:21)
[2021-04-21] MEDS: oxyCODONE HCl Immed Release 5 MG TABLET PO (18:57)
[2021-04-21] MEDS: Lidocaine 4 % Patch ADH..PATCH 1 PATCH TRANSDERMA (18:57)
[2021-04-21] MEDS: cefTRIAXone sodium 1 GM in 0.9 % Sodium Chloride 50 ML IV (18:57)
--- NOTE | 2021-04-21 19:13 | PC.NURSE ---
Report taken from Johnathon, suki RN resuming care. Pt medicated per NOV. Pt reporting a 9/10 RIVERS at this time. VSS at this time. Pharmacy at bedside for med rec. Pt aware of plan to admit. Continue to monitor.
[2021-04-21] MEDS: Clindamycin Phosphate/D5W 600 MG/50 ML PIGGYBACK 100 MG IV (19:52)
--- NOTE | 2021-04-21 19:52 | PC.NURSE ---
Pt ambulating to the bathroom with a steady gait. Medicated per NOV. Reports some relief of pain, states pain has decreased to a 7/10. Awaiting room assignment. Continue to monitor.
--- NOTE | 2021-04-21 20:44 | P.HPHOSP_ITS ---
History of Present Illness Date of Service: 04/21/21 Chief Complaint: SOB, cough, chest pain This is a 56-year-old male with past medical history of HIV, reports compliance with Biktarvy, depression anxiety, history of substance abuse who presents to the hospital with complaints of cough, shortness of breath, and right-sided chest pain. Patient reports that his symptoms started about 1 week ago, associated with productive cough, no fever no chills, feeling significant pain on his right side mostly with breathing, pain is 10/10, nonradiating, constant, improved with pain medication received in the ED. patient also reports that he has history of asthma and feels very wheezy. He reports no nausea or vomiting, no abdominal pain, no palpitations, no diarrhea constipation, no urinary symptoms and no lower extremity edema. Denies any numbness tingling. Denies any sick contacts or recent travel. On arrival to the ED patient vitals significant for temp of 98.1?, heart rate of 73, respiratory rate of 15, blood pressure 137/80, satting 92% on room air Labs are significant for WBC count of 7.8, hemoglobin of 14.3, AST of 68, ALT of 118, alk-phos of 155, otherwise unremarkable. COVID-[address] angiogram is negative for PE, no thoracic aortic dissection, it shows consolidation in the right posterior basal lower lobe, 1.3 cm low attenuation within consolidation which could represent early abscess formation. No cavitary or gas bubbles. Case discussed with Infectious Disease, patient will be started on IV antibiotics and admitted for further management Review of Systems Review of Systems: Yes all other systems are reviewed and are negative [facility] Medical History Depression Hemorrhoids HIV (human immunodeficiency virus infection) Substance abuse Social History Household Members: None Housing: Apartment Do you presently have visiting nurse or other home services: Yes Alcohol intake: never Patient Tobacco Use Status: Never used Tobacco Use of substances other than those prescribed or required for medical reasons: No Currently Displaying Signs/Symptoms of Drug Intoxication Withdrawal: No Have you been hit, kicked, punched, or otherwise hurt by someone within the past year? If so, by whom?: No Do you feel safe in your current relationship?: Yes Is there a partner from a previous relationship who is making you feel unsafe now?: No Are you made to feel afraid or neglected: No Advance Directives: No Advance Directives Information Provided: No Do you have thoughts of harming others: None Do you have a plan to hurt others: No Plan Recently lost weight without trying: No Nutrition Risks: No Nutritional Risk Poor oral hygiene: No Meds Allergies Allergy/AdvReac Type Severity Reaction Status Date / Time codeine Allergy Mild RASH Unverified 05/27/20 15:16 [From Tylenol-Codeine #3] levofloxacin [From LEVAQUIN] Allergy Mild Rash Unverified 05/27/20 15:16 metoclopramide [From Reglan] Allergy Mild RASH Unverified 05/27/20 15:16 acetaminophen Allergy Unknown Verified 10/03/19 00:00 [Tylenol-Codeine #3] Motrin Allergy Unknown REflux Unverified 01/06/20 00:00 Penicillins [PENICILLINS] Allergy Unknown RASH Unverified 05/27/20 15:16 tramadol [From Ultram] AdvReac Mild N/V Unverified 05/27/20 15:16 SEASONAL ALLERGIES Allergy Intermediate EYE Uncoded 05/27/20 15:16 DRAINAGE penicillin Allergy Unknown Uncoded 01/06/20 00:00 Active Medications: Current Medications Generic Name Dose Route Start Last Admin Trade Name Freq PRN Reason Stop Dose Admin Pharmacy Consult 1 each 04/21/21 18:40 Consult Rx Perform Med Rec MISCELLANE ONCE PRN Consult order Home Medications Medication Instructions Recorded Confirmed Last Taken Type amitriptyline 50 mg tablet 2 tab PO BEDTIME 04/21/21 04/21/21 04/20/21 History amlodipine 5 mg tablet 1 tab PO DAILY 04/21/21 04/21/21 04/20/21 History bictegravir 50 mg-emtricitabine 1 tab PO DAILY 04/21/21 04/21/21 04/20/21 History 200 mg-tenofovir alafenam 25 mg tablet (Biktarvy) clonazepam 1 mg tablet 1 tab PO BID 04/21/21 04/21/21 04/20/21 History diphenhydramine HCl 25 mg capsule 2 cap PO BEDTIME PRN 04/21/21 04/21/21 Unknown History (Banophen) fluticasone propionate 110 1 puff PO BID 04/21/21 04/21/21 04/20/21 History mcg/actuation HFA aerosol inhaler (Flovent HFA) gabapentin 600 mg tablet 1 tab PO TID 04/21/21 04/21/21 04/20/21 History mirtazapine 30 mg tablet 1 tab PO BEDTIME 04/21/21 04/21/21 Unknown History propranolol 120 mg capsule,24 1 cap PO DAILY 04/21/21 04/21/21 04/20/21 History hr,extended release tramadol 50 mg tablet 1 tab PO DAILY PRN 04/21/21 04/21/21 Unknown History Physical Exam Vital Signs and Narrative: Vital Signs: Last Vital Signs Temp 98 F 04/21/21 16:12 Pulse 90 04/21/21 19:03 Resp 16 04/21/21 19:03 BP 151/103 H 04/21/21 19:03 Pulse Ox 93 04/21/21 19:03 Body Mass Index 26.4 Const: General: cooperative and no acute distress Orientation/consciousness: patient oriented x3 Eyes: General: appearance normal, both eyes and all related structures Pupils: Equal, round and reactive pupils present Resp: Other: Rhonchi right lower lobe Effort & Inspection: normal respiratory effort and able to speak in complete sentences Cardio: Rate: regular rate Rhythm: regular rhythm GI: Palpation (GI): Soft to palpation Auscultation: normal bowel sounds Skin: General skin exam: no rashes or lesions noted Neuro: General: patient oriented x3 Cranial nerves: Yes Equal, round and reactive pupils present Cognition (Neuro): normal cognition Extrem: General: Yes normal to inspection and Yes no pedal edema Results Labs CBC and Chem 7: 04/21/21 12:57 04/21/21 12:57 Labs: Laboratory Results - last 24 hr 04/21/21 04/21/21 04/21/21 12:57 12:57 12:57 MCV 97.3 MCH 31.8 MCHC 32.7 RDW 13.9 Plt Count 240 MPV 11.3 Immature Gran % (Auto) 0.3 Neut % (Auto) 64.5 Lymph % (Auto) 14.9 L [place] % (Auto) 11.2 H Eos % (Auto) 8.1 H Baso % (Auto) 1.0 Lymph # (Auto) 1.2 [place] # (Auto) 0.9 Eos # (Auto) 0.6 H Baso # (Auto) 0.1 Abs Immat Gran (auto) 0.02 Absolute Neuts (auto) 5.0 Absolute Nucleated RBC 0.000 Nucleated RBC % (auto) 0.0 PT 12.8 INR 1.1 D-Dimer 394 Anion Gap 12 Estim Creat Clear Calc 70.5 Estimated GFR > 60 Random Glucose 93 Lactic Acid Calcium 9.6 D Magnesium 2.1 Total Bilirubin 0.7 Direct Bilirubin 0.4 AST 68 H ALT 118 H Alkaline Phosphatase 155 H D Troponin I High Sens B-Natriuretic Peptide Total Protein 7.8 Albumin 4.1 COVID-19 (TAMMIE) COVID-19 Clin Com 04/21/21 04/21/21 04/21/21 12:57 12:57 12:57 MCV MCH MCHC RDW Plt Count MPV Immature Gran % (Auto) Neut % (Auto) Lymph % (Auto) [place] % (Auto) Eos % (Auto) Baso % (Auto) Lymph # (Auto) [place] # (Auto) Eos # (Auto) Baso # (Auto) Abs Immat Gran (auto) Absolute Neuts (auto) Absolute Nucleated RBC Nucleated RBC % (auto) PT INR D-Dimer Anion Gap Estim Creat Clear Calc Estimated GFR Random Glucose Lactic Acid 1.0 Calcium Magnesium Total Bilirubin Direct Bilirubin AST ALT Alkaline Phosphatase Troponin I High Sens < 3.5 B-Natriuretic Peptide 22 Total Protein Albumin COVID-19 (TAMMIE) Negative COVID-19 Clin Com See Note Imaging Radiologist's Impressions: Impressions Chest X-Ray 04/21/21 12:25 IMPRESSION: Left lower lung disease. Chest CTA 04/21/21 13:15 IMPRESSION: 1. No pulmonary embolism. No thoracic aortic dissection. 2. Consolidation right posterior basal lower lobe. 1.3 cm low-attenuation within consolidation could represent early abscess formation. No cavity or gas bubbles. 3. No pneumothorax, pneumomediastinum, or effusion. VTE: negative Assessment and Plan (1) Lung abscess: Status: Acute (2) Asthma: Status: Acute (3) Pneumonia: Status: Acute (4) Pleuritic chest pain: Status: Acute This is a 56-year-old male with past medical history of HIV on Biktarvy who presents to the hospital with complaints of shortness of breath, cough, pleuritic chest pain. # community-acquired pneumonia - patient with pneumonia on chest CT, as well as and the abscess formation - history of HIV with a most recent CD4 count in January - at this time will start him on ceftriaxone and clindamycin per Infectious Disease recommendation - follow cultures # lung abscess - secondary to above - last CD4 count is 267 and patient reports compliance with his medications Biktarvy - at this time will continue ceftriaxone and clindamycin as above - will obtain CD4 count - infectious disease recommendation appreciated # asthma exacerbation - reports dyspnea and wheezing which may be multifactorial secondary to pneumonia as well as asthma exacerbation - will start him on Solu-Medrol 40 IV b.i.d. - DuoNeb treatment # pleuritic chest pain - secondary to pneumonia - troponin negative, no EKG changes - CT angiogram negative for PE - supportive measures # HIV - continue Biktarvy DVT prophylaxis: lovenox Quality Stroke Does the patient have a stroke diagnosis?: No VTE Prior VTE?: No VTE Risk Level:: Medical - moderate - high VTE Device Contraindication: Treatment Not Indicated VTE Drug Contraindication: N/A - Med Ordered
--- NOTE | 2021-04-21 21:55 | PC.NURSE ---
Report given to RN. Staff at bedside preparing pt for transport to floor.
[2021-04-21] MEDS: Propranolol HCL LA 60 MG CAP.SA.24H 120 MG PO (22:33)
[2021-04-21] MEDS: Gabapentin 600 MG TABLET PO (22:33)
[2021-04-21] MEDS: clonazePAM 1 MG TABLET PO (22:33)
[2021-04-21] MEDS: Mirtazapine 30 MG TABLET PO (22:33)
[2021-04-21] MEDS: Amitriptyline HCl 50 MG TABLET 100 MG PO (22:34)
[2021-04-21] MEDS: amLODIPine Besylate 5 MG TABLET PO (22:34)
[2021-04-21] MEDS: Enoxaparin Sodium 40 MG/0.4 ML SYRINGE SUBCUT (22:35)
[2021-04-21] MEDS: polyethylene glycoL 3350 17 GM POWD.PACK PO (22:35)
[2021-04-21] MEDS: 0.9 % Sodium Chloride Flush 3 ML SYRINGE IVFLUSH (22:53)
[2021-04-22] VITALS (7 sets, daily range): BP systolic 103–143; BP diastolic 57–79; PULSE 62–69; RESP 16–19; TEMP 35.9–36.6; O2SAT 90–96
[2021-04-22] MEDS: Clindamycin Phosphate/D5W 600 MG/50 ML PIGGYBACK 100 MG IV ×3 (01:31→17:34)
[2021-04-22] MEDS: Morphine Sulfate 4 MG/ML CARTRIDGE IVPUSH ×4 (02:30→23:52)
--- NOTE | 2021-04-22 05:35 | PC.NURSE ---
red rash noted on pt's left upper back.pt states it is from the antibiotics.pt states it is itchy. notified.
--- NOTE | 2021-04-22 05:38 | PC.NURSE ---
benadryl 25mg iv ordered for rash.
[2021-04-22] MEDS: methylPREDNISolone Sod Succ 40 MG/ML VIAL IVPUSH ×2 (05:44→17:26)
[2021-04-22] MEDS: diphenhydrAMINE HCL 50 MG/ML VIAL 25 MG IVPUSH ×2 (05:58→13:10)
[2021-04-22 06:15] LABS: MANUAL DIFF FLAG NO
[2021-04-22 06:24] LABS: Basophils Absolute Auto 0.1 X10*3/uL (0.0-0.2); Basophils Percent Auto 0.7 % (0-2); Eosinophils Absolute Auto 0.7 X10*3/uL (0.0-0.4); Eosinophils Percent Auto 8.2 % (0-4); Hematocrit 42.3 % (42-52); Imm Gran Abs Auto 0.02 X10*3/uL (0.00-0.03); Imm Gran Pct Auto 0.2 % (0.0-0.4); Lymphocytes Absolute Auto 1.8 X10*3/uL (1.2-4.9); Lymphocytes Percent Auto 20.3 % (20-40); Mean Corpuscular HGB Conc 33.1 g/dl (31.0-36.0); Mean Corpuscular Hemoglobin 31.6 pg (27.0-33.0); Mean Corpuscular Volume 95.5 fL (80-98); Mean Platelet Volume 11.3 fL (9.4-12.4); Monocytes Absolute Auto 1.5 X10*3/uL (0.1-1.2); Monocytes Percent Auto 16.1 % (2-11); Neutrophils Percent Auto 54.5 % (45-73); Platelet Count 259 X10*3/uL (160-400); Red Blood Count 4.43 X10*6/uL (4.60-5.80); Red Cell Distribution Width 13.6 % (11.0-16.0); White Blood Count 9.1 X10*3/uL (4.8-10.8)
[2021-04-22 06:46] LABS: Anion Gap 13 (12-20); Blood Urea Nitrogen 8 mg/dL (9-16); Calcium 9.1 mg/dL (8.4-10.2); Carbon Dioxide 29 mmol/L (22-29); Chloride 100 mmol/L (96-108); Creatinine Clr Calc Pharmacy 74.5; Estimated Glomerular Filt Rate > 60; Glucose Random 111 mg/dL (60-115); Potassium 4.4 mmol/L (3.3-5.1); Sodium 138 mmol/L (135-145)
[2021-04-22] MEDS: Fluticasone Propionate 100 MCG BLST.W.DEV 1 PUFF INHALE ×2 (07:39→20:22)
[2021-04-22] MEDS: Propranolol HCL LA 60 MG CAP.SA.24H 120 MG PO (09:10)
[2021-04-22] MEDS: clonazePAM 1 MG TABLET PO ×2 (09:10→21:04)
[2021-04-22] MEDS: Gabapentin 600 MG TABLET PO ×3 (09:10→21:04)
[2021-04-22] MEDS: amLODIPine Besylate 5 MG TABLET PO (09:10)
[2021-04-22] MEDS: polyethylene glycoL 3350 17 GM POWD.PACK PO (09:10)
[2021-04-22] MEDS: 0.9 % Sodium Chloride Flush 3 ML SYRINGE IVFLUSH ×2 (09:11→16:24)
--- NOTE | 2021-04-22 12:59 | MHC.CM.PN ---
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 HE HAS DAILY [employer]OWER [employer] SERVICES ([employer]) FOR 2 HOURS EACH DAY HE ALSO HAS TRANSPORT SERVICES THROUGH [facility] [place]. HCP ON FILE AND VERIFIED. COPY PLACED ON CHART. CASE MANAGEMENT FOLLOWING FOR ANY DC NEEDS. IMM 04/22 IN CHART.
--- NOTE | 2021-04-22 13:43 | P.PNIM_ITS ---
Subjective Subjective Date of Service: 04/22/21 Interval History: Coughing up yellow sputum No fever or dyspnea No hemoptysis C/o itchy, burning rash on L side of back, mid-thoracic area Endorses full adherence with ART Review of Systems Review of Systems: Yes all other systems are reviewed and are negative Physical Exam Vital Signs: Vital Signs: Last Vital Signs Temp 96.8 F 04/22/21 12:00 Pulse 63 04/22/21 12:00 Resp 18 04/22/21 12:00 BP 104/67 04/22/21 12:00 Pulse Ox 92 04/22/21 12:00 Body Mass Index 26.4 Gen: in no acute distress HEENT: sclera anicteric, moist mucus membranes Neck: supple Lungs: clear to auscultation bilaterally Heart: regular rate and rhythm, no murmurs Abd: soft, non-tender, non-distended Ext: no edema Skin: well-defined erythematous patch L mid-thoracic area with clear vesicles Neuro: alert and oriented x3, no focal findings Psych: appropriate affect Objective Data Current Medications Generic Name Dose Route Start Last Admin Trade Name Freq PRN Reason Stop Dose Admin Acetaminophen 650 mg 04/21/21 21:46 Acetaminophen 325 Mg Tablet PO Q6H PRN Pain, Mild (Pain Scale 1-3) Albuterol/Ipratropium 3 ml 04/22/21 05:26 Albuterol/Iprat 2.5/0.5mg 3 Ml Ampul.Neb INHALE RQ4H PRN Shortness of Breath/Wheezing Amitriptyline HCl 100 mg 04/21/21 21:46 04/21/21 22:34 Amitriptyline Hcl 50 Mg Tablet PO 100 mg BEDTIME MICHAEL Administration Amlodipine Besylate 5 mg 04/21/21 21:46 04/22/21 09:10 Amlodipine Besylate 5 Mg Tablet PO 5 mg DAILY MICHAEL Administration Protocol Bictegravir/Emtricitabine/Tenofovir 1 tab 04/21/21 21:46 04/22/21 09:10 Bictegrav/Emtricit/Tenofov Ala 1 Tab Tablet PO 1 tab DAILY MICHAEL Administration Clonazepam 1 mg 04/21/21 22:00 04/22/21 09:10 Clonazepam 1 Mg Tablet PO 1 mg BID MICHAEL Administration Diphenhydramine HCl 50 mg 04/21/21 21:46 Diphenhydramine Hcl 25 Mg Tablet PO BEDTIME PRN Allergy Symptoms Diphenhydramine HCl 25 mg 04/22/21 05:31 04/22/21 13:10 Diphenhydramine Hcl 50 Mg/Ml Vial IVPUSH 25 mg Q6H PRN Administration Itching Docusate Sodium 100 mg 04/21/21 21:46 Docusate Sodium 100 Mg Capsule PO DAILY PRN Constipation Enoxaparin Sodium 40 mg 04/21/21 22:00 04/21/21 22:35 Enoxaparin Sodium 40 Mg/0.4 Ml Syringe SUBCUT 40 mg Q24H MICHAEL Administration Fluticasone Propionate 1 puff 04/22/21 08:00 04/22/21 07:39 Fluticasone Propionate 100 Mcg Blst.W.Dev INHALE 1 puff RBID MICHAEL Administration Gabapentin 600 mg 04/21/21 22:00 04/22/21 09:10 Gabapentin 600 Mg Tablet PO 600 mg TID MICHAEL Administration Ceftriaxone Sodium 1 gm/ 50 mls @ 100 mls/hr 04/22/21 18:00 Sodium Chloride IV Q24H MICHAEL Clindamycin Phosphate 600 mg in 50 mls @ 100 mls/hr 04/22/21 01:00 04/22/21 09:52 Cleocin IV Infused Q8H MICHAEL Infusion Methylprednisolone Sodium Succinate 40 mg 04/22/21 05:30 04/22/21 05:44 Methylprednisolone Sod Succ 40 Mg/Ml Vial IVPUSH 40 mg Q12H MICHAEL Administration Mirtazapine 30 mg 04/21/21 22:00 04/21/21 22:33 Mirtazapine 30 Mg Tablet PO 30 mg BEDTIME MICHAEL Administration Morphine Sulfate 4 mg 04/21/21 21:46 04/22/21 02:30 Morphine Sulfate 4 Mg/Ml Cartridge IVPUSH 4 mg Q4H PRN Administration Pain, Severe (Pain Scale 7-10) Protocol Ondansetron HCl 4 mg 04/21/21 21:46 Ondansetron Hcl 4 Mg/2 Ml Vial IVPUSH Q8H PRN Nausea and Vomiting Pharmacy Consult 1 each 04/21/21 18:40 Consult Rx Perform Med Rec MISCELLANE ONCE PRN Consult order Polyethylene Glycol 17 gm 04/21/21 21:46 04/22/21 09:10 Polyethylene Glycol 3350 17 Gm Powd.Pack PO 17 gm DAILY MICHAEL Administration Propranolol HCl 120 mg 04/21/21 22:00 04/22/21 09:10 Propranolol Hcl La 60 Mg Cap.Sa.24h PO 120 mg DAILY MICHAEL Administration Protocol Sodium Chloride 3 ml 04/22/21 00:00 04/22/21 09:11 0.9 % Sodium Chloride Flush 3 Ml Syringe IVFLUSH 3 ml QSHIFT MICHAEL Administration Tramadol HCl 50 mg 04/21/21 21:46 Tramadol Hcl 50 Mg Tablet PO DAILY PRN Migraine Headache Valacyclovir HCl 1,000 mg 04/22/21 13:45 Valacycyclovir Hcl 1,000 Mg Tablet PO Q8H [facility] Labs CBC & Chem 7: 04/22/21 05:56 04/22/21 05:56 Labs: Laboratory Results - last 24 hr 04/21/21 04/22/21 04/22/21 12:57 05:56 05:56 MCV 95.5 MCH 31.6 MCHC 33.1 RDW 13.6 Plt Count 259 MPV 11.3 Immature Gran % (Auto) 0.2 Neut % (Auto) 54.5 Lymph % (Auto) 20.3 Trigg % (Auto) 16.1 H Eos % (Auto) 8.2 H Baso % (Auto) 0.7 Lymph # (Auto) 1.8 Trigg # (Auto) 1.5 H Eos # (Auto) 0.7 H Baso # (Auto) 0.1 Abs Immat Gran (auto) 0.02 Absolute Neuts (auto) 5.0 Absolute Nucleated RBC 0.000 Nucleated RBC % (auto) 0.0 Anion Gap 12 13 Estim Creat Clear Calc 70.5 74.5 Estimated GFR > 60 > 60 Random Glucose 93 111 Calcium 9.6 D 9.1 Magnesium 2.1 Total Bilirubin 0.7 Direct Bilirubin 0.4 AST 68 H ALT 118 H Alkaline Phosphatase 155 H D Total Protein 7.8 Albumin 4.1 Assessment and Plan (1) Lung abscess: Status: Acute (2) Shingles: Status: Acute Assessment and Plan: hospital d#2 56yo M with HIV presenting with productive cough, pleurisy, and dyspnea admitted for early lung abscess # CAP/early lung abscess - ceftriaxone + clindamycin d#2, ID consult, follow BCx, check SpCx, repeat imaging after completing ABX # asthma exacerbation - taper methylprednisolone, nebulizer treatments; continue ICS # acute herpes zoster - start valacyclovir 1g tid, d#09/16; oxycodone for pain control # HIV infection (CD4 276, pVL <20 01/19/21) - continue Biktarvy; repeat pVL + CD4 pending # HTN - continue amlodipine, propranolol # mood disorder - continue mirtazapine, clonazepam, gabapentin # VTE ppx - LMWH Quality Stroke Does the patient have a stroke diagnosis?: No VTE Prior VTE?: No VTE Risk Level:: Medical - moderate - high VTE Device Contraindication: Treatment Not Indicated VTE Drug Contraindication: N/A - Med Ordered
--- NOTE | 2021-04-22 15:46 | P.CNID_ITS ---
History of Present Illness Data of Consult Service Date: 04/22/21 Requesting physician: Timi Muñiz Primary Care Provider: Akira Lobo MD HPI Reason for consult: pneumonia,early lung abscess He presents to hospital with shortness of breath and cough He has RLL infiltrate and concern over small areas of lung abscess He has no fever or chills. He is not on oxygen He has reddened area on left back. He has had recurrent painful reddened area on back he attributes to antibiotics He has no recent dental procedures or new cavities Review of Systems Review of Systems: Yes all other systems are reviewed and are negative [facility] Past Medical History Medical History Asthma Depression Hemorrhoids HIV (human immunodeficiency virus infection) Kidney stones Pleuritic chest pain Pneumonia Substance abuse Family History Family history: reviewed and not pertinent Surgical History Surgical History H/O hemorrhoidectomy Social History Social History Household Members: None Housing: Apartment Do you presently have visiting nurse or other home services: Yes Alcohol intake: never Patient Tobacco Use Status: Never used Tobacco Advance Directives: Yes Advance Directives on File: Yes Advance Directives Date on File: 04/25/21 service: No Current occupational status: disabled Meds Allergies Allergy/AdvReac Type Severity Reaction Status Date / Time codeine Allergy Mild RASH Verified 06/06/21 16:07 [From Tylenol-Codeine #3] levofloxacin [From LEVAQUIN] Allergy Mild Rash Verified 06/06/21 16:07 metoclopramide [From Reglan] Allergy Mild RASH Verified 06/06/21 16:07 acetaminophen Allergy Unknown Unknown Verified 06/06/21 16:07 [Tylenol-Codeine #3] Motrin Allergy Unknown REflux Verified 06/06/21 16:07 Penicillins [PENICILLINS] Allergy Unknown RASH Verified 06/06/21 16:07 tramadol [From Ultram] AdvReac Mild N/V Verified 06/06/21 16:07 SEASONAL ALLERGIES Allergy Intermediate EYE Uncoded 06/06/21 16:07 DRAINAGE penicillin Allergy Unknown Unknown Uncoded 06/06/21 16:07 Active Medications: Current Medications Generic Name Dose Route Start Last Admin Trade Name Freq PRN Reason Stop Dose Admin Acetaminophen 650 mg 04/21/21 21:46 Acetaminophen 325 Mg Tablet PO Q6H PRN Pain, Mild (Pain Scale 1-3) Albuterol/Ipratropium 3 ml 04/22/21 05:26 Albuterol/Iprat 2.5/0.5mg 3 Ml Ampul.Neb INHALE RQ4H PRN Shortness of Breath/Wheezing Amitriptyline HCl 100 mg 04/21/21 21:46 04/21/21 22:34 Amitriptyline Hcl 50 Mg Tablet PO 100 mg BEDTIME MICHAEL Administration Amlodipine Besylate 5 mg 04/21/21 21:46 04/22/21 09:10 Amlodipine Besylate 5 Mg Tablet PO 5 mg DAILY MICHAEL Administration Protocol Bictegravir/Emtricitabine/Tenofovir 1 tab 04/21/21 21:46 04/22/21 09:10 Bictegrav/Emtricit/Tenofov Ala 1 Tab Tablet PO 1 tab DAILY MICHAEL Administration Clonazepam 1 mg 04/21/21 22:00 04/22/21 09:10 Clonazepam 1 Mg Tablet PO 1 mg BID MICHAEL Administration Diphenhydramine HCl 50 mg 04/21/21 21:46 Diphenhydramine Hcl 25 Mg Tablet PO BEDTIME PRN Allergy Symptoms Diphenhydramine HCl 25 mg 04/22/21 05:31 04/22/21 13:10 Diphenhydramine Hcl 50 Mg/Ml Vial IVPUSH 25 mg Q6H PRN Administration Itching Docusate Sodium 100 mg 04/21/21 21:46 Docusate Sodium 100 Mg Capsule PO DAILY PRN Constipation Enoxaparin Sodium 40 mg 04/21/21 22:00 04/21/21 22:35 Enoxaparin Sodium 40 Mg/0.4 Ml Syringe SUBCUT 40 mg Q24H MICHAEL Administration Fluticasone Propionate 1 puff 04/22/21 08:00 04/22/21 07:39 Fluticasone Propionate 100 Mcg Blst.W.Dev INHALE 1 puff RBID MICHAEL Administration Gabapentin 600 mg 04/21/21 22:00 04/22/21 14:03 Gabapentin 600 Mg Tablet PO 600 mg TID MICHAEL Administration Ceftriaxone Sodium 1 gm/ 50 mls @ 100 mls/hr 04/22/21 18:00 Sodium Chloride IV Q24H MICHAEL Clindamycin Phosphate 600 mg in 50 mls @ 100 mls/hr 04/22/21 01:00 04/22/21 09:52 Cleocin IV Infused Q8H MICHAEL Infusion Methylprednisolone Sodium Succinate 40 mg 04/22/21 05:30 04/22/21 05:44 Methylprednisolone Sod Succ 40 Mg/Ml Vial IVPUSH 40 mg Q12H MICHAEL Administration Mirtazapine 30 mg 04/21/21 22:00 04/21/21 22:33 Mirtazapine 30 Mg Tablet PO 30 mg BEDTIME MICHAEL Administration Morphine Sulfate 4 mg 04/21/21 21:46 04/22/21 13:53 Morphine Sulfate 4 Mg/Ml Cartridge IVPUSH 4 mg Q4H PRN Administration Pain, Severe (Pain Scale 7-10) Protocol Ondansetron HCl 4 mg 04/21/21 21:46 Ondansetron Hcl 4 Mg/2 Ml Vial IVPUSH Q8H PRN Nausea and Vomiting Oxycodone HCl 5 mg 04/22/21 13:42 Oxycodone Hcl Immed Release 5 Mg Tablet PO Q4H PRN severe pain Pharmacy Consult 1 each 04/21/21 18:40 Consult Rx Perform Med Rec MISCELLANE ONCE PRN Consult order Polyethylene Glycol 17 gm 04/21/21 21:46 04/22/21 09:10 Polyethylene Glycol 3350 17 Gm Powd.Pack PO 17 gm DAILY MICHAEL Administration Propranolol HCl 120 mg 04/21/21 22:00 04/22/21 09:10 Propranolol Hcl La 60 Mg Cap.Sa.24h PO 120 mg DAILY MICHAEL Administration Protocol Sodium Chloride 3 ml 04/22/21 00:00 04/22/21 09:11 0.9 % Sodium Chloride Flush 3 Ml Syringe IVFLUSH 3 ml QSHIFT MICHAEL Administration Tramadol HCl 50 mg 04/21/21 21:46 Tramadol Hcl 50 Mg Tablet PO DAILY PRN Migraine Headache Valacyclovir HCl 1,000 mg 04/22/21 14:00 04/22/21 14:03 Valacycyclovir Hcl 1,000 Mg Tablet PO 1,000 mg Q8H MICHAEL Administration Home Medications Medication Instructions Recorded Confirmed Last Taken Type clonazepam 1 mg tablet 1 tab PO BID 04/21/21 06/06/21 06/05/21 History gabapentin 600 mg tablet 1 tab PO TID 04/21/21 06/06/21 06/05/21 History mirtazapine 30 mg tablet 1 tab PO BEDTIME 04/21/21 06/06/21 06/05/21 History tramadol 50 mg tablet 1 tab PO DAILY PRN 04/21/21 06/06/21 06/05/21 History acetaminophen 500 mg tablet 1 tab PO BID PRN 06/06/21 06/06/21 06/05/21 History albuterol sulfate 90 mcg/actuation 2 puff PO Q4-6H PRN 06/06/21 06/06/21 06/05/21 History aerosol inhaler amitriptyline 50 mg tablet 2 tab PO BEDTIME 06/06/21 06/06/21 06/05/21 History bictegravir 50 mg-emtricitabine 1 tab PO DAILY 06/06/21 06/06/21 06/05/21 History 200 mg-tenofovir alafenam 25 mg tablet (Biktarvy) diphenhydramine HCl 25 mg capsule 2 cap PO BEDTIME 06/06/21 06/06/21 06/05/21 History (Banophen) fluticasone propionate 110 1 inh INHALATION BID 06/06/21 06/06/21 06/05/21 History mcg/actuation HFA aerosol inhaler (Flovent HFA) ibuprofen 600 mg tablet 1 tab PO TID PRN 06/06/21 06/06/21 06/05/21 History multivitamin 1 tab PO DAILY 06/06/21 06/06/21 06/05/21 History Physical Exam Vital Signs: Vital Signs: Last Vital Signs Temp 96.7 F L 04/22/21 15:25 Pulse 66 04/22/21 15:25 Resp 19 04/22/21 15:25 BP 103/57 L 04/22/21 15:25 Pulse Ox 92 04/22/21 15:25 Body Mass Index 26.4 Const: General: cooperative HENMT: Head: Yes normal to inspection Mouth: Normal oral and palatal mucosa present Resp: Effort & Inspection: normal respiratory effort Cardio: Rate: regular rate Rhythm: regular rhythm GI: Palpation (GI): Soft to palpation and nontender Skin: General skin exam: no rashes or lesions noted Results Labs CBC & Chem 7: 04/23/21 06:04 04/23/21 06:04 Labs: Short CBC 04/22/21 Range/Units 05:56 WBC 9.1 (4.8-10.8) X10*3/uL Hgb 14.0 (14.0-18.0) g/dl Hct 42.3 (42-52) % Plt Count 259 (160-400) X10*3/uL BMP 04/22/21 05:56 Sodium 138 Potassium 4.4 Chloride 100 Carbon Dioxide 29 BUN 8 L Creatinine 0.88 Calcium 9.1 Microbiology Microbiology Results: Microbiology 04/21/21 13:37 Blood - Venous Blood Culture - Preliminary No growth after 24 hours. 04/21/21 12:57 Blood - Venous Blood Culture - Preliminary No growth after 24 hours. Assessment and Plan (1) Lung abscess: Status: Acute He has had cough and likely pneumonia for several days He has preserved immune system with HIV but still is at risk for lung abscess and there are smaller areas look like lung abscess. (2) Shingles: Status: Acute He has back discomfort Varicella zoster can be associated with diminished immune system due to illness Valtrex until resolved (3) HIV (human immunodeficiency virus infection): Status: Acute Continue medication
[2021-04-22] MEDS: oxyCODONE HCl Immed Release 5 MG TABLET PO (16:24)
[2021-04-22] MEDS: cefTRIAXone sodium 1 GM in 0.9 % Sodium Chloride 50 ML IV (18:21)
[2021-04-22] MEDS: Enoxaparin Sodium 40 MG/0.4 ML SYRINGE SUBCUT (21:04)
[2021-04-22] MEDS: diphenhydrAMINE HCl 2 % Cream 28 GM TUBE 1 APPL TOPICAL (21:04)
[2021-04-22] MEDS: Amitriptyline HCl 50 MG TABLET 100 MG PO (21:04)
[2021-04-22] MEDS: Mirtazapine 30 MG TABLET PO (21:04)
--- NOTE | 2021-04-22 21:05 | PC.NURSE ---
PATIENT PLACED ON CONTACT PRECAUTIONS IN CASE OF SHINGLES .RASH ON LEFT BACK.
[2021-04-23] MEDS: diphenhydrAMINE HCL 25 MG TABLET 50 MG PO (00:26)
[2021-04-23] MEDS: Clindamycin Phosphate/D5W 600 MG/50 ML PIGGYBACK 100 MG IV ×2 (00:27→08:35)
[2021-04-23] MEDS: 0.9 % Sodium Chloride Flush 3 ML SYRINGE IVFLUSH ×3 (00:31→15:06)
[2021-04-23 01:00] VITALS: BP 108/68
[2021-04-23 04:00] VITALS: BP 114/66; PULSE 56; RESP 16; TEMP 35.7; O2SAT 91
[2021-04-23 06:38] LABS: Hematocrit 40.7 % (42-52); Hemoglobin 13.4 g/dl (14.0-18.0); Mean Corpuscular HGB Conc 32.9 g/dl (31.0-36.0); Mean Corpuscular Hemoglobin 31.4 pg (27.0-33.0); Mean Corpuscular Volume 95.3 fL (80-98); Mean Platelet Volume 11.3 fL (9.4-12.4); Platelet Count 285 X10*3/uL (160-400); Red Blood Count 4.27 X10*6/uL (4.60-5.80); Red Cell Distribution Width 13.6 % (11.0-16.0); White Blood Count 13.5 X10*3/uL (4.8-10.8)
[2021-04-23] MEDS: methylPREDNISolone Sod Succ 40 MG/ML VIAL IVPUSH (06:41)
[2021-04-23 06:45] LABS: Alanine Aminotransferase 83 U/L (0-40); Albumin Level 3.8 g/dL (3.5-5.0); Alkaline Phosphatase 129 U/L (39-117); Anion Gap 15 (12-20); Aspartate Amino Transferase 37 U/L (5-37); Bilirubin Direct 0.3 mg/dL (0.0-0.5); Bilirubin Total 0.3 mg/dL (0.0-1.0); Blood Urea Nitrogen 17 mg/dL (9-16); Calcium 9.1 mg/dL (8.4-10.2); Carbon Dioxide 27 mmol/L (22-29); Chloride 101 mmol/L (96-108); Creatinine Clr Calc Pharmacy 57.5; Estimated Glomerular Filt Rate > 60; Glucose Random 131 mg/dL (60-115); Sodium 138 mmol/L (135-145); Total Protein 7.4 g/dL (6.5-8.0)
[2021-04-23] MEDS: clonazePAM 1 MG TABLET PO (08:33)
[2021-04-23 08:34] VITALS: BP 110/69; PULSE 61; RESP 18; TEMP 35.9; O2SAT 91
[2021-04-23] MEDS: Gabapentin 600 MG TABLET PO ×2 (08:34→15:06)
[2021-04-23] MEDS: oxyCODONE HCl Immed Release 5 MG TABLET PO (08:34)
[2021-04-23] MEDS: amLODIPine Besylate 5 MG TABLET PO (08:35)
[2021-04-23] MEDS: polyethylene glycoL 3350 17 GM POWD.PACK PO (08:36)
[2021-04-23] MEDS: Propranolol HCL LA 60 MG CAP.SA.24H 120 MG PO (08:36)
[2021-04-23] MEDS: Fluticasone Propionate Nasal 16 GM SPRAY 1 SPRAY NOSTRIL-B (09:27)
[2021-04-23] MEDS: Morphine Sulfate 4 MG/ML CARTRIDGE IVPUSH (11:38)
[2021-04-23 12:00] VITALS: BP 124/72; PULSE 66; RESP 18; TEMP 36.4; O2SAT 96
[2021-04-23 15:14] VITALS: BP 123/71; PULSE 64; RESP 16; TEMP 36; O2SAT 96
--- NOTE | 2021-04-23 15:28 | P.DS_ITS ---
DS: Providers Provider Date of Service: 04/23/21 Date of admission: 04/21/21 20:44 Date of discharge: 04/23/21 Primary care physician: Akira Lobo MD Admitting clinician: Mirna Davila Attending physician on admission: Mirna Davila Consults: 04/21/21 21:46 Consult to Infectious Diseases Routine Consulting Provider: Kary Ko Reason for consultation: HIV w pna Has provider been notified: Yes Attending physician on discharge: Timi Muñiz Discharging clinician: Timi Muñiz DS: Diagnosis Discharge Diagnosis (1) Shingles: Status: Acute (2) HIV (human immunodeficiency virus infection): Status: Acute (3) Abscess of lower lobe of right lung with pneumonia: Status: Acute DS: Medications Discharge Medications Home Medications: Home Medications Medication Instructions Recorded Confirmed amitriptyline 50 mg tablet 2 tab PO BEDTIME 04/21/21 04/21/21 amlodipine 5 mg tablet 1 tab PO DAILY 04/21/21 04/21/21 bictegravir 50 mg-emtricitabine 1 tab PO DAILY 04/21/21 04/21/21 200 mg-tenofovir alafenam 25 mg tablet (Biktarvy) clonazepam 1 mg tablet 1 tab PO BID 04/21/21 04/21/21 diphenhydramine HCl 25 mg capsule 2 cap PO BEDTIME PRN 04/21/21 04/21/21 (Banophen) fluticasone propionate 110 1 puff PO BID 04/21/21 04/21/21 mcg/actuation HFA aerosol inhaler (Flovent HFA) gabapentin 600 mg tablet 1 tab PO TID 04/21/21 04/21/21 mirtazapine 30 mg tablet 1 tab PO BEDTIME 04/21/21 04/21/21 propranolol 120 mg capsule,24 1 cap PO DAILY 04/21/21 04/21/21 hr,extended release tramadol 50 mg tablet 1 tab PO DAILY PRN 04/21/21 04/21/21 Previous Rx's Medication Instructions Recorded ibuprofen 600 mg tablet 600 mg PO Q8H PRN #10 tab 12/17/20 polyethylene glycol 3350 17 17 g PO DAILY #119 g 12/17/20 gram/dose oral powder (Miralax) albuterol sulfate 90 mcg/actuation 2 puff PO Q4-6H PRN #8.5 g 04/18/21 aerosol inhaler cefuroxime axetil 500 mg tablet 500 mg PO BID #16 tab 04/23/21 clindamycin HCl 300 mg capsule 300 mg PO QID #32 cap 04/23/21 diphenhydramine HCl 2 % topical 1 appl TOPICAL TID PRN #30 g 04/23/21 cream valacyclovir 1 gram tablet 1,000 mg PO Q8H #18 tab 04/23/21 DS: Summary Hospital Course Hospital Course: from admission H+P by Dr Davila, 04/21/21: This is a 56-year-old male with past medical history of HIV, reports compliance with Biktarvy, depression anxiety, history of substance abuse who presents to the hospital with complaints of cough, shortness of breath, and right-sided chest pain.? Patient reports that his symptoms started about 1 week ago, associated with productive cough, no fever no chills, feeling significant pain on his right side mostly with breathing, pain is 10/10, nonradiating, constant, improved with pain medication received in the ED.? patient also reports that he has history of asthma and feels very wheezy.? He reports no nausea or vomiting, no abdominal pain, no palpitations, no diarrhea constipation, no urinary symptoms and no lower extremity edema.? Denies any numbness tingling.? Denies any sick contacts or recent travel. On arrival to the ED patient vitals significant for temp of 98.1?, heart rate of 73, respiratory rate of 15, blood pressure 137/80, satting 92% on room air Labs are significant for WBC count of 7.8, hemoglobin of 14.3, AST of 68, ALT of 118, alk-phos of 155, otherwise unremarkable.? COVID-[address] angiogram is negative for PE, no thoracic aortic dissection, it shows consolidation in the right posterior basal lower lobe, 1.3 cm low attenuation within consolidation which could represent early abscess formation.? No cavitary or gas bubbles. Case discussed with Infectious Disease, patient will be started on IV antibiotics and admitted for further management The patient was admitted to the Medical/Surgical floor and treated with IV ceftriaxone and IV clindamycin along with IV methylprednisolone. His symptoms improved rapidly and he was not hypoxic. ID was consulted. He was discharged home om PO cefuroxime and PO clindamycin for 8 more days [having completed 2 da ys of IV therapy inpatient] and will repeat CT of the chest without contrast in 2 weeks, then follow up with ID. He was also sent home with 3 more days of steroid burst with prednisone. He was noted to have acute shingles rash of the left mid-thoracic area and was treated with valacyclovir, to complete 6 more days as an outpatient. He should see his primary care doctor in 1 month. ART with Biktarvy was continued; a CD4 count and viral load are pending at the time of discharge. Time Spent with Patient Time attestation: Total time spent providing and/or coordinating discharge services: Discharge coordination time: Greater than 30 minutes Quality: Stroke Does the patient have a stroke diagnosis?: No Physical Exam Vital Signs: Vital Signs: Last Vital Signs Temp 96.8 F 04/23/21 15:14 Pulse 64 04/23/21 15:14 Resp 16 04/23/21 15:14 BP 123/71 04/23/21 15:14 Pulse Ox 96 04/23/21 15:14 Body Mass Index 26.4 Gen: in no acute distress HEENT: sclera anicteric, moist mucus membranes Neck: supple Lungs: clear to auscultation bilaterally Heart: regular rate and rhythm, no murmurs Abd: soft, non-tender, non-distended Ext: no edema Skin: well-defined erythematous patch L mid-thoracic area with clear vesicles Neuro: alert and oriented x3, no focal findings Psych: appropriate affect DS: Data Data Completed and Pending Completed studies during hospitalization [Text1]: ITS Impressions Chest X-Ray 04/21/21 12:25 IMPRESSION: Left lower lung disease. Chest CTA 04/21/21 13:15 IMPRESSION: 1. No pulmonary embolism. No thoracic aortic dissection. 2. Consolidation right posterior basal lower lobe. 1.3 cm low-attenuation within consolidation could represent early abscess formation. No cavity or gas bubbles. 3. No pneumothorax, pneumomediastinum, or effusion. VTE: negative Laboratory Tests 04/21/21 04/21/21 04/21/21 12:57 12:57 12:57 WBC 7.8 RBC 4.49 L Hgb 14.3 Hct 43.7 MCV 97.3 MCH 31.8 MCHC 32.7 RDW 13.9 Plt Count 240 MPV 11.3 Immature Gran % (Auto) 0.3 Neut % (Auto) 64.5 Lymph % (Auto) 14.9 L [place] % (Auto) 11.2 H Eos % (Auto) 8.1 H Baso % (Auto) 1.0 Lymph # (Auto) 1.2 [place] # (Auto) 0.9 Eos # (Auto) 0.6 H Baso # (Auto) 0.1 Abs Immat Gran (auto) 0.02 Absolute Neuts (auto) 5.0 Absolute Nucleated RBC 0.000 Nucleated RBC % (auto) 0.0 PT 12.8 INR 1.1 D-Dimer 394 Sodium 142 Potassium 4.3 Chloride 104 Carbon Dioxide 30 H Anion Gap 12 BUN 8 L Creatinine 0.93 Estim Creat Clear Calc 70.5 Estimated GFR > 60 Random Glucose 93 Lactic Acid Calcium 9.6 D Magnesium 2.1 Total Bilirubin 0.7 Direct Bilirubin 0.4 AST 68 H ALT 118 H Alkaline Phosphatase 155 H D Troponin I High Sens B-Natriuretic Peptide Total Protein 7.8 Albumin 4.1 Procalcitonin COVID-19 ([facility]) COVID-[facility] 04/21/21 04/21/21 04/21/21 12:57 12:57 12:57 WBC RBC Hgb Hct MCV MCH MCHC RDW Plt Count MPV Immature Gran % (Auto) Neut % (Auto) Lymph % (Auto) [place] % (Auto) Eos % (Auto) Baso % (Auto) Lymph # (Auto) [place] # (Auto) Eos # (Auto) Baso # (Auto) Abs Immat Gran (auto) Absolute Neuts (auto) Absolute Nucleated RBC Nucleated RBC % (auto) PT INR D-Dimer Sodium Potassium Chloride Carbon Dioxide Anion Gap BUN Creatinine Estim Creat Clear Calc Estimated GFR Random Glucose Lactic Acid 1.0 Calcium Magnesium Total Bilirubin Direct Bilirubin AST ALT Alkaline Phosphatase Troponin I High Sens < 3.5 B-Natriuretic Peptide 22 Total Protein Albumin Procalcitonin COVID-19 ([facility]) Negative COVID-19 Clin Com See Note 04/22/21 04/22/21 04/23/21 05:56 05:56 06:04 WBC 9.1 13.5 H RBC 4.43 L 4.27 L Hgb 14.0 13.4 L Hct 42.3 40.7 L MCV 95.5 95.3 MCH 31.6 31.4 MCHC 33.1 32.9 RDW 13.6 13.6 Plt Count 259 285 MPV 11.3 11.3 Immature Gran % (Auto) 0.2 Neut % (Auto) 54.5 Lymph % (Auto) 20.3 [place] % (Auto) 16.1 H Eos % (Auto) 8.2 H Baso % (Auto) 0.7 Lymph # (Auto) 1.8 [place] # (Auto) 1.5 H Eos # (Auto) 0.7 H Baso # (Auto) 0.1 Abs Immat Gran (auto) 0.02 Absolute Neuts (auto) 5.0 Absolute Nucleated RBC 0.000 0.000 Nucleated RBC % (auto) 0.0 0.0 PT INR D-Dimer Sodium 138 Potassium 4.4 Chloride 100 Carbon Dioxide 29 Anion Gap 13 BUN 8 L Creatinine 0.88 Estim Creat Clear Calc 74.5 Estimated GFR > 60 Random Glucose 111 Lactic Acid Calcium 9.1 Magnesium Total Bilirubin Direct Bilirubin AST ALT Alkaline Phosphatase Troponin I High Sens B-Natriuretic Peptide Total Protein Albumin Procalcitonin COVID-19 ([facility]) COVID-19 [facility] 04/23/21 04/23/21 06:04 06:04 WBC RBC Hgb Hct MCV MCH MCHC RDW Plt Count MPV Immature Gran % (Auto) Neut % (Auto) Lymph % (Auto) [place] % (Auto) Eos % (Auto) Baso % (Auto) Lymph # (Auto) [place] # (Auto) Eos # (Auto) Baso # (Auto) Abs Immat Gran (auto) Absolute Neuts (auto) Absolute Nucleated RBC Nucleated RBC % (auto) PT INR D-Dimer Sodium 138 Potassium 5.0 Chloride 101 Carbon Dioxide 27 Anion Gap 15 BUN 17 H D Creatinine 1.14 Estim Creat Clear Calc 57.5 Estimated GFR > 60 Random Glucose 131 H Lactic Acid Calcium 9.1 Magnesium Total Bilirubin 0.3 Direct Bilirubin 0.3 AST 37 D ALT 83 H Alkaline Phosphatase 129 H Troponin I High Sens B-Natriuretic Peptide Total Protein 7.4 Albumin 3.8 Procalcitonin 0.10 COVID-19 ([facility]) COVID-19 Clin Com Pending studies at discharge: CD4, HIV-1 viral load, blood culture, sputum culture Discharge Plan Discharge Patient Disposition: Home, Self-Care Discharge Diagnosis: pneumonia with possible early lung abscess, asthma exacerbation, shingles, HIV Referrals: Kary Ko MD [Physician] - 2 Weeks Akira Lobo MD [Primary Care Provider] - 1 Week Discharge Medications: New cefuroxime axetil 500 mg tablet 500 mg PO BID Qty: 16 RF: 0 clindamycin HCl 300 mg capsule 300 mg PO QID Qty: 32 RF: 0 valacyclovir 1 gram Tablet 1,000 mg PO Q8H Qty: 18 RF: 0 diphenhydramine HCl 2 % cream 1 appl topical TID PRN (Reason: itching) Qty: 30 RF: 0 prednisone 20 mg tablet 40 mg PO DAILY Qty: 6 RF: 0 Continued albuterol sulfate 90 mcg/actuation HFA aerosol inhaler 2 puff PO Q4-6H PRN (Reason: for dyspnea) Qty: 8.5 RF: 3 polyethylene glycol 3350 [Miralax] 17 gram/dose powder 17 g PO DAILY Qty: 119 RF: 0 ibuprofen 600 mg tablet 600 mg PO Q8H PRN (Reason: pain) Qty: 10 RF: 0 gabapentin 600 mg tablet 1 tab PO TID RF: 0 clonazepam 1 mg tablet 1 tab PO BID RF: 0 amlodipine 5 mg tablet 1 tab PO DAILY RF: 0 tramadol 50 mg tablet 1 tab PO DAILY PRN (Reason: Migraine Headache) RF: 0 amitriptyline 50 mg tablet 2 tab PO BEDTIME RF: 0 diphenhydramine HCl [Banophen] 25 mg capsule 2 cap PO BEDTIME PRN (Reason: Allergy Symptoms) RF: 0 mirtazapine 30 mg tablet 1 tab PO BEDTIME RF: 0 propranolol 120 mg capsule,extended release 24 hr 1 cap PO DAILY RF: 0 Flovent HFA 110 mcg/actuation HFA aerosol inhaler 1 puff PO BID RF: 0 Biktarvy 50-200-25 mg tablet 1 tab PO DAILY RF: 0 Discharge Orders: Discharge Order (Routine); Ordered 04/23/21 Ordered By: Timi Muñiz Diet: advance to usual diet Activity on Discharge: As tolerated Stand Alone Forms: Patient Portal Discharge page Other Ambulatory Orders: CT chest wo con (Routine) Timeframe: 2 Weeks Facility: [facility] - Location: CT Scan Ordered By: Timi Muñiz Care Plan Goals: resolution of pneumonia/lung abscess, asthma exacerbation, and shingles Health Concerns: pneumonia/early lung abscess, asthma exacerbation, and shingles Plan of Treatment: take antibiotics for pneumonia: - cefuroxime 500 mg 2x a day for 8 more days - clindamycin 300 mg 4x a day for 8 more days take steroid for asthma: - prednisone 40 mg a day for [address] of the chest without contrast in 2 weeks follow up with Dr Cee Ko, Infectious Disease, in [address], [address], [facility] [address] take valacylovir [antiviral for shingles], 1000 mg 3x a day for 6 more days and use diphenhydramine cream for itching follow up with your primary care doctor in 1 week and your HIV specialist as scheduled Assessment: as above Patient Instructions: Pneumonia (DC)
[2021-04-25 15:27] LABS: Absolute CD3 Count 1397 cells/uL (840-3060); Absolute CD4 Count 710 cells/uL (490-1740); Absolute CD8 Count 730 cells/uL (180-1170); Absolute Lymphocytes 1748 cells/uL (850-3900); CD4 CD8 Ratio 0.97 (0.86-5.00); Percent CD3 Cells 80 % (57-85); Percent CD4 Cells 41 % (30-61); Percent CD8 Cells 42 % (12-42)
[2021-04-26 11:57] LABS: HIV RNA PCR Qn Copies <20 NOT DETECTED copies/mL (NOT DETECTED); HIV RNA PCR Qn Log Copies <1.30 NOT DETECTED (NOT DETECTED)
== END 2021-04-23 17:26 | disposition home or self-care (01) | DRG 178 ==
LOC: HO.ED 20:30 → HO.S3 21:07
PROVIDERS: Nurse Practitioner Family; Admitting Provider Internal Medicine; Emergency Provider Emergency Medicine; PCP Internal Medicine; Visit Provider Family Medicine
DX: J85.1 Abscess of lung with pneumonia (principal); J45.901 Unspecified asthma with (acute) exacerbation; F41.9 Anxiety disorder, unspecified; F32.9 Major depressive disorder, single episode, unspecified; Z21 Asymptomatic human immunodeficiency virus [HIV] infection status; B02.9 Zoster without complications; F39 Unspecified mood [affective] disorder; Z20.822 Contact with and (suspected) exposure to COVID-19; Z87.442 Personal history of urinary calculi; Z88.0 Allergy status to penicillin; Z88.5 Allergy status to narcotic agent; Z79.1 Long term (current) use of non-steroidal anti-inflammatories (NSAID); Z79.899 Other long term (current) drug therapy
CPT/HCPCS: 36415; 71045; 71275; 80048; 80076; 83605; 83735; 83880; 84145; 84484; 85025; 85027; 85379; 85610; 86359; 86360; 87040; 87070; 87205; 87536; 87635; 93005; 96365; 96372; 96375; 96376; 99285; J0696; J1200; J1650; J2270; J2920; J3030; Q0163; Q9967

== ENCOUNTER 2021-05-01 18:51 | Emergency (ER) | payer OTHER, SELFPAY ==
--- NOTE | ~2021-05-01 | CT_ITS ---
EXAMINATION: CT ABDOMEN AND PELVIS WITHOUT CONTRAST CLINICAL INFORMATION: Left flank pain. COMPARISON: CT of the chest done on 04/21/2021. TECHNIQUE: Multidetector volumetric imaging was performed from the superior aspect of the liver through the pubic symphysis. Sagittal and coronal reformatted images were obtained on the technologist's workstation. This CT examination was performed using dose optimization techniques as appropriate, variously including the following: *Automated exposure control *Adjustment of mA and/or kV according to patient size (this includes techniques or standardized protocols for targeted exams where dose is matched to indication/reason for exam; i.e. extremities or head) *Use of iterative reconstruction technique DLP: 564 mGy-cm FINDINGS: LUNG BASES: Previously documented dense curvilinear subpleural airspace consolidation appear improved. Residual disease is still present. Follow-up radiograph to complete resolution is recommended to exclude any underlying malignancy. LIVER, GALLBLADDER, AND BILIARY TREE: The liver is normal in size, shape, and attenuation. No focal hepatic lesion or biliary ductal dilatation is present. The gallbladder is unremarkable with no evidence of radiopaque gallstones, gallbladder wall thickening, or obvious pericholecystic inflammatory changes. PANCREAS: Fatty infiltration is present. No mass. SPLEEN: Unremarkable. ADRENAL GLANDS: The left adrenal gland is thickened without any discrete mass. The right adrenal gland is unremarkable. KIDNEYS AND URETERS: Multiple sub-5 mm nonobstructing bilateral renal calculi are noted without evidence of any hydroureteronephrosis or hydroureter ureter. BLADDER: Unremarkable. GASTROINTESTINAL TRACT: Significant fecal residual is noted within the large bowel. Nonvisualized appendix. The small bowel loops are decompressed. The stomach is decompressed. No pericolonic or mesenteric inflammatory changes. ABDOMINAL WALL: No significant hernia is appreciated. LYMPH NODES: Normal. VASCULAR: Unremarkable. PELVIC VISCERA: There is no pelvic mass present. No evidence of any free fluid and/or free air. OSSEOUS STRUCTURES: Unremarkable. CT/CT abdomen pelvis wo con IMPRESSION: 1. Bilateral nonobstructing multiple sub-5 mm radiopaque calculi are noted without evidence of any hydroureteronephrosis or perinephric inflammatory changes. 2. Thickening of the left adrenal gland without any discrete mass. 3. Previously documented dense curvilinear subpleural airspace disease/consolidation appear improved since the prior CT of the chest dated 04/21/2021. Residual disease is still present. Follow-up radiograph to document complete resolution is recommended to exclude malignancy.
[2021-05-01 19:17] VITALS: BP 133/95; PULSE 114; RESP 18; TEMP 36.7; O2SAT 94; BMI 25.7
[2021-05-01 19:43] LABS: Glucose Urine UA NEG (NEG); Leukocyte Esterase Urine NEG (NEG); Nitrite Urine NEG (NEG); Specific Gravity - Urine <= 1.005 (1.005-1.025); UACC Culture Trigger NO; Urine Blood 3+ (NEG); Urine Ketones NEG (NEG); Urine Protein NEG (NEG-TRACE)
[2021-05-01 19:45] LABS: Appearance Urine HAZY; Color Urine YELLOW
[2021-05-01 19:50] LABS: WBC Urine 0 /HPF (0-4)
[2021-05-01 19:51] LABS: Bacteria Urine TRACE /LPF; RBC Urine 50-75 /HPF (0); Squamous Epithelial Cell Urine TRACE /LPF
--- NOTE | 2021-05-01 22:17 | ED.GENADULT ---
HPI - General Adult General Chief complaint: Abdominal Pain Stated complaint: flank pain Time Seen by Provider: 05/01/21 21:38 Source: patient Mode of arrival: ambulatory Limitations: no limitations History of Present Illness HPI narrative: Patient comes emergency room complaining of left flank since last night. Patient states that this morning when he woke up, he urinated blood, states that he has some burning sensation with urination. Patient states he passed kidney stones approximately 2-3 months ago, states it is the same feeling. Patient complaining of mild nausea, no vomiting or diarrhea. Patient states at times the pain radiates from the left flank towards the left inguinal area Related Data Home Medications Medication Instructions Recorded Confirmed amitriptyline 50 mg tablet 2 tab PO BEDTIME 04/21/21 04/21/21 amlodipine 5 mg tablet 1 tab PO DAILY 04/21/21 04/21/21 bictegravir 50 mg-emtricitabine 1 tab PO DAILY 04/21/21 04/21/21 200 mg-tenofovir alafenam 25 mg tablet (Biktarvy) clonazepam 1 mg tablet 1 tab PO BID 04/21/21 04/21/21 diphenhydramine HCl 25 mg capsule 2 cap PO BEDTIME PRN 04/21/21 04/21/21 (Banophen) fluticasone propionate 110 1 puff PO BID 04/21/21 04/21/21 mcg/actuation HFA aerosol inhaler (Flovent HFA) gabapentin 600 mg tablet 1 tab PO TID 04/21/21 04/21/21 mirtazapine 30 mg tablet 1 tab PO BEDTIME 04/21/21 04/21/21 propranolol 120 mg capsule,24 1 cap PO DAILY 04/21/21 04/21/21 hr,extended release tramadol 50 mg tablet 1 tab PO DAILY PRN 04/21/21 04/21/21 Previous Rx's Medication Instructions Recorded ibuprofen 600 mg tablet 600 mg PO Q8H PRN #10 tab 12/17/20 polyethylene glycol 3350 17 17 g PO DAILY #119 g 12/17/20 gram/dose oral powder (Miralax) albuterol sulfate 90 mcg/actuation 2 puff PO Q4-6H PRN #8.5 g 04/18/21 aerosol inhaler cefuroxime axetil 500 mg tablet 500 mg PO BID #16 tab 04/23/21 clindamycin HCl 300 mg capsule 300 mg PO QID #32 cap 04/23/21 diphenhydramine HCl 2 % topical 1 appl TOPICAL TID PRN #30 g 04/23/21 cream prednisone 20 mg tablet 40 mg PO DAILY #6 tab 04/23/21 valacyclovir 1 gram tablet 1,000 mg PO Q8H #18 tab 04/23/21 ibuprofen 600 mg tablet 600 mg PO TID PRN #10 tab 05/02/21 prednisone 20 mg tablet 20 mg PO DAILY #5 tab 05/02/21 Allergies Allergy/AdvReac Type Severity Reaction Status Date / Time codeine Allergy Mild RASH Unverified 05/27/20 15:16 [From Tylenol-Codeine #3] levofloxacin [From LEVAQUIN] Allergy Mild Rash Unverified 05/27/20 15:16 metoclopramide [From Reglan] Allergy Mild RASH Unverified 05/27/20 15:16 acetaminophen Allergy Unknown Verified 10/03/19 00:00 [Tylenol-Codeine #3] Motrin Allergy Unknown REflux Unverified 01/06/20 00:00 Penicillins [PENICILLINS] Allergy Unknown RASH Unverified 05/27/20 15:16 tramadol [From Ultram] AdvReac Mild N/V Unverified 05/27/20 15:16 SEASONAL ALLERGIES Allergy Intermediate EYE Uncoded 05/27/20 15:16 DRAINAGE penicillin Allergy Unknown Uncoded 01/06/20 00:00 Review of Systems Review of Systems: Constitutional : No Weight loss, No Fever, No Chills, No Night Sweats, No Fatigue, No Malaise ENT/Mouth : No Hearing loss, No Ear Pain, No Nasal Congestion, No Sinus Pain, No Hoarseness, No sore throat, No Rhinorrhea, No Swallowing Difficulty Eyes: No Eye Pain, No Swelling, No Redness, No Foreign Body, No Discharge, No Vision Changes Cardiovascular : No Chest Pain, No SOB, No Dyspnea on Exertion, No Orthopnea, No Edema, No Palpitations Respiratory : No Cough, No Sputum, No Wheezing, No Smoke Exposure, No Dyspnea Gastrointestinal : No Nausea, No Vomiting, No Diarrhea, No Constipation, No abdominal Pain, No Hematochezia, No Melena Genitourinary : Mild Dysuria, No Urinary Frequency, complaining of Hematuria starting today, No Urinary Incontinence, No Urgency, left-sided Flank Pain, No Urinary Flow Changes, No Hesitancy Musculoskeletal : No joint pain, No Myalgias, No Joint Swelling Skin : No Skin Lesions, No rash Neuro : No Weakness, No Numbness, No Paresthesias, No Loss of Consciousness, No Dizziness, No Headache Psych : No Anxiety/Panic, No Depression, No SI/HI/AH/VH, No Social Issues, Heme/Lymph: No Bruising, No Bleeding,No Lymphadenopathy Endocrine : No Polyuria, No Polydipsia, No Temperature Intolerance [facility] Past Medical History Medical History (Updated 05/02/21 @ 00:49 by Sheryl Duarte MD) Asthma Depression Hemorrhoids HIV (human immunodeficiency virus infection) Kidney stones Pleuritic chest pain Pneumonia Substance abuse Social History Social History Household Members: None Housing: Apartment Do you presently have visiting nurse or other home services: Yes Alcohol intake: never Patient Tobacco Use Status: Never used Tobacco Advance Directives: No Advance Directives Information Provided: No service: No Current occupational status: disabled Physical Exam Vital Signs: Vital Signs: Last Vital Signs Temp 98.1 F 05/01/21 19:17 Pulse 81 05/01/21 23:06 Resp 18 05/01/21 23:06 BP 139/91 H 05/01/21 23:06 Pulse Ox 95 05/01/21 23:06 Body Mass Index 25.7 Const: Other: Appearance: Alert. Oriented X3. No acute distress. Eyes: Pupils equal, round and reactive to light. ENT: Pharynx normal. Neck: Normal inspection. Neck supple. No lymph nodes noted. No crepitus CVS: Normal heart rate and rhythm. Pulses normal. Normal S1 and S2 Respiratory: No respiratory distress. Breath sounds normal. No Wheezing. No rales Abdomen: Soft and nontender. No rigidity. No distention. Back: Positive CVA tenderness on the left side Skin: Skin warm and dry. Excoriation in the left upper back, healing Extremities: No lower extremity edema. No lower extremity edema. No Lacerations. No Rash Neuro: Oriented X 3. No motor deficit. No sensory deficit. Moving all extermities. No slurred speech. Course Course Course Narrative: I discussed with the patient his CT scan and labs, it is likely that he did pass a kidney stone. Patient did have blood in the urine but no bacteria, unlikely to be a UTI. I discussed with the patient that he has residual subpleural airspace disease/consolidation, patient needs follow-up with a CT scan or radiograph. Medical Decision Making Lab Data Result diagrams: 05/01/21 22:49 05/01/21 22:49 Labs: Lab Results 05/01/21 05/01/21 05/01/21 Range/Units 19:22 22:49 22:49 WBC 5.4 (4.8-10.8) X10*3/uL RBC 4.87 (4.60-5.80) X10*6/uL Hgb 15.8 (14.0-18.0) g/dl Hct 47.1 (42-52) % MCV 96.7 (80-98) fL MCH 32.4 (27.0-33.0) pg MCHC 33.5 (31.0-36.0) g/dl RDW 14.2 (11.0-16.0) % Plt Count 290 (160-400) X10*3/uL MPV 10.7 (9.4-12.4) fL Immature Gran % (Auto) 1.5 H (0.0-0.4) % Neut % (Auto) 41.1 L (45-73) % Lymph % (Auto) 38.2 (20-40) % Bent % (Auto) 12.2 H (2-11) % Eos % (Auto) 5.9 H (0-4) % Baso % (Auto) 1.1 (0-2) % Lymph # (Auto) 2.1 (1.2-4.9) X10*3/uL Bent # (Auto) 0.7 (0.1-1.2) X10*3/uL Eos # (Auto) 0.3 (0.0-0.4) X10*3/uL Baso # (Auto) 0.1 (0.0-0.2) X10*3/uL Abs Immat Gran (auto) 0.08 H (0.00-0.03) X10*3/uL Absolute Neuts (auto) 2.2 (2.0-8.3) X10*3/uL Absolute Nucleated RBC 0.000 (0.0-0.012) X10*3/uL Nucleated RBC % (auto) 0.0 (0.0-0.2) /100WBC Sodium 141 (135-145) mmol/L Potassium 4.9 (3.3-5.1) mmol/L Chloride 102 (96-108) mmol/L Carbon Dioxide 28 (22-29) mmol/L Anion Gap 16 (12-20) BUN 7 L D (9-16) mg/dL Creatinine 0.87 (0.5-1.4) mg/dL Estim Creat Clear Calc 84.5 Estimated GFR > 60 Random Glucose 86 (60-115) mg/dL Lactic Acid (0.5-2.0) mmol/L Calcium 9.1 (8.4-10.2) mg/dL Urine Color YELLOW Urine Appearance HAZY Urine pH 6.0 (5.0-8.0) Ur Specific [place] <= 1.005 (1.005-1.025) Urine Protein NEG (NEG-TRACE) MG/DL Urine Glucose (UA) NEG (NEG) MG/DL Urine Ketones NEG (NEG) MG/DL Urine Blood 3+ H (NEG) Urine Nitrite NEG (NEG) Ur Leukocyte Esterase NEG (NEG) Urine RBC 50-75 H (0) /HPF Urine WBC 0 (0-4) /HPF Ur Squamous Epith Cells TRACE /LPF Urine Bacteria TRACE /LPF 05/01/21 Range/Units 22:49 WBC (4.8-10.8) X10*3/uL RBC (4.60-5.80) X10*6/uL Hgb (14.0-18.0) g/dl Hct (42-52) % MCV (80-98) fL MCH (27.0-33.0) pg MCHC (31.0-36.0) g/dl RDW (11.0-16.0) % Plt Count (160-400) X10*3/uL MPV (9.4-12.4) fL Immature Gran % (Auto) (0.0-0.4) % Neut % (Auto) (45-73) % Lymph % (Auto) (20-40) % Bent % (Auto) (2-11) % Eos % (Auto) (0-4) % Baso % (Auto) (0-2) % Lymph # (Auto) (1.2-4.9) X10*3/uL Bent # (Auto) (0.1-1.2) X10*3/uL Eos # (Auto) (0.0-0.4) X10*3/uL Baso # (Auto) (0.0-0.2) X10*3/uL Abs Immat Gran (auto) (0.00-0.03) X10*3/uL Absolute Neuts (auto) (2.0-8.3) X10*3/uL Absolute Nucleated RBC (0.0-0.012) X10*3/uL Nucleated RBC % (auto) (0.0-0.2) /100WBC Sodium (135-145) mmol/L Potassium (3.3-5.1) mmol/L Chloride (96-108) mmol/L Carbon Dioxide (22-29) mmol/L Anion Gap (12-20) BUN (9-16) mg/dL Creatinine (0.5-1.4) mg/dL Estim Creat Clear Calc Estimated GFR Random Glucose (60-115) mg/dL Lactic Acid 1.8 (0.5-2.0) mmol/L Calcium (8.4-10.2) mg/dL Urine Color Urine Appearance Urine pH (5.0-8.0) Ur Specific [place] (1.005-1.025) Urine Protein (NEG-TRACE) MG/DL Urine Glucose (UA) (NEG) MG/DL Urine Ketones (NEG) MG/DL Urine Blood (NEG) Urine Nitrite (NEG) Ur Leukocyte Esterase (NEG) Urine RBC (0) /HPF Urine WBC (0-4) /HPF Ur Squamous Epith Cells /LPF Urine Bacteria /LPF Imaging Data CT scan - abdomen: Radiologist's impression: FINDINGS: LUNG BASES: Previously documented dense curvilinear subpleural airspace consolidation appear improved. Residual disease is still present. Follow-up radiograph to complete resolution is recommended to exclude any underlying malignancy.? LIVER, GALLBLADDER, AND BILIARY TREE: The liver is normal in size, shape, and attenuation. No focal hepatic lesion or biliary ductal dilatation is present. The gallbladder is unremarkable with no evidence of radiopaque gallstones, gallbladder wall thickening, or obvious pericholecystic inflammatory changes.? PANCREAS: Fatty infiltration is present. No mass.? SPLEEN: Unremarkable.? ADRENAL GLANDS: The left adrenal gland is thickened without any discrete mass. The right adrenal gland is unremarkable.? KIDNEYS AND URETERS: Multiple sub-5 mm nonobstructing bilateral renal calculi are noted without evidence of any hydroureteronephrosis or hydroureter ureter. ? BLADDER: Unremarkable.? GASTROINTESTINAL TRACT: Significant fecal residual is noted within the large bowel. Nonvisualized appendix. The small bowel loops are decompressed. The stomach is decompressed. No pericolonic or mesenteric inflammatory changes.? ABDOMINAL WALL: No significant hernia is appreciated.? LYMPH NODES: Normal. VASCULAR: Unremarkable. PELVIC VISCERA: There is no pelvic mass present. No evidence of any free fluid and/or free air.? OSSEOUS STRUCTURES: Unremarkable.? CT/CT abdomen pelvis wo con IMPRESSION: ? 1. Bilateral nonobstructing multiple sub-5 mm radiopaque calculi are noted without evidence of any hydroureteronephrosis or perinephric inflammatory changes. 2. Thickening of the left adrenal gland without any discrete mass. 3. Previously documented dense curvilinear subpleural airspace disease/consolidation appear improved since the prior CT of the chest dated 04/21/2021. Residual disease is still present. Follow-up radiograph to document complete resolution is recommended to exclude malignancy. Discharge Plan Discharge Clinical Impression: Acute flank pain Patient Disposition: Home, Self-Care Instructions: Kidney Stones (ED), Flank Pain (ED) Additional Instructions: Please follow-up with your primary care physician tomorrow. You will likely need a CT scan or a chest x-ray to re-evaluate complete resolution of the findings on the lower part of her lungs. have any worsening or new symptoms, please return to the emergency room or call 911 Prescriptions: New ibuprofen 600 mg tablet 600 mg PO TID PRN (Reason: pain) Qty: 10 RF: 0 prednisone 20 mg tablet 20 mg PO DAILY Qty: 5 RF: 0 No Action albuterol sulfate 90 mcg/actuation HFA aerosol inhaler 2 puff PO Q4-6H PRN (Reason: for dyspnea) Qty: 8.5 RF: 3 polyethylene glycol 3350 [Miralax] 17 gram/dose powder 17 g PO DAILY Qty: 119 RF: 0 ibuprofen 600 mg tablet 600 mg PO Q8H PRN (Reason: pain) Qty: 10 RF: 0 gabapentin 600 mg tablet 1 tab PO TID RF: 0 clonazepam 1 mg tablet 1 tab PO BID RF: 0 amlodipine 5 mg tablet 1 tab PO DAILY RF: 0 tramadol 50 mg tablet 1 tab PO DAILY PRN (Reason: Migraine Headache) RF: 0 amitriptyline 50 mg tablet 2 tab PO BEDTIME RF: 0 diphenhydramine HCl [Banophen] 25 mg capsule 2 cap PO BEDTIME PRN (Reason: Allergy Symptoms) RF: 0 mirtazapine 30 mg tablet 1 tab PO BEDTIME RF: 0 propranolol 120 mg capsule,extended release 24 hr 1 cap PO DAILY RF: 0 Flovent HFA 110 mcg/actuation HFA aerosol inhaler 1 puff PO BID RF: 0 Biktarvy 50-200-25 mg tablet 1 tab PO DAILY RF: 0 cefuroxime axetil 500 mg tablet 500 mg PO BID Qty: 16 RF: 0 clindamycin HCl 300 mg capsule 300 mg PO QID Qty: 32 RF: 0 valacyclovir 1 gram Tablet 1,000 mg PO Q8H Qty: 18 RF: 0 diphenhydramine HCl 2 % cream 1 appl topical TID PRN (Reason: itching) Qty: 30 RF: 0 prednisone 20 mg tablet 40 mg PO DAILY Qty: 6 RF: 0 Referrals: Dallas Malone MD [Physician] - 2 days
[2021-05-01] MEDS: 0.9 % Sodium Chloride 1,000 ML 999 ML IVCONT (22:52)
[2021-05-01] MEDS: Ketorolac Tromethamine 15 MG/ML VIAL 30 MG IVPUSH (22:53)
[2021-05-01] MEDS: ondansetron HCL 4 MG/2 ML VIAL IVPUSH (22:54)
[2021-05-01 22:58] LABS: MANUAL DIFF FLAG NO
[2021-05-01 23:00] LABS: Basophils Absolute Auto 0.1 X10*3/uL (0.0-0.2); Basophils Percent Auto 1.1 % (0-2); Eosinophils Absolute Auto 0.3 X10*3/uL (0.0-0.4); Eosinophils Percent Auto 5.9 % (0-4); Hematocrit 47.1 % (42-52); Hemoglobin 15.8 g/dl (14.0-18.0); Imm Gran Abs Auto 0.08 X10*3/uL (0.00-0.03); Imm Gran Pct Auto 1.5 % (0.0-0.4); Lymphocytes Absolute Auto 2.1 X10*3/uL (1.2-4.9); Lymphocytes Percent Auto 38.2 % (20-40); Mean Corpuscular HGB Conc 33.5 g/dl (31.0-36.0); Mean Corpuscular Hemoglobin 32.4 pg (27.0-33.0); Mean Corpuscular Volume 96.7 fL (80-98); Mean Platelet Volume 10.7 fL (9.4-12.4); Monocytes Absolute Auto 0.7 X10*3/uL (0.1-1.2); Monocytes Percent Auto 12.2 % (2-11); Neutrophils Absolute Auto 2.2 X10*3/uL (2.0-8.3); Neutrophils Percent Auto 41.1 % (45-73); Platelet Count 290 X10*3/uL (160-400); Red Blood Count 4.87 X10*6/uL (4.60-5.80); Red Cell Distribution Width 14.2 % (11.0-16.0); White Blood Count 5.4 X10*3/uL (4.8-10.8)
[2021-05-01 23:06] VITALS: BP 139/91; PULSE 81; RESP 18; O2SAT 95
[2021-05-01 23:16] LABS: Lactic Acid 1.8 mmol/L (0.5-2.0)
[2021-05-01 23:22] LABS: Anion Gap 16 (12-20); Blood Urea Nitrogen 7 mg/dL (9-16); Calcium 9.1 mg/dL (8.4-10.2); Carbon Dioxide 28 mmol/L (22-29); Chloride 102 mmol/L (96-108); Creatinine Clr Calc Pharmacy 84.5; Estimated Glomerular Filt Rate > 60; Glucose Random 86 mg/dL (60-115); Potassium 4.9 mmol/L (3.3-5.1); Sodium 141 mmol/L (135-145)
== END 2021-05-02 01:04 | disposition home or self-care (01) ==
PROVIDERS: Emergency Provider Emergency Medicine
DX: R10.9 Unspecified abdominal pain (principal); Z79.899 Other long term (current) drug therapy; Z21 Asymptomatic human immunodeficiency virus [HIV] infection status
CPT/HCPCS: 36415; 74176; 80048; 81001; 83605; 85025; 87040; 96365; 96375; 99283; 99284; J1885; J2405

== ENCOUNTER 2021-05-04 15:00 | Outpatient (REF) | payer OTHER, SELFPAY ==
[2021-05-04 15:44] LABS: MANUAL DIFF FLAG NO
[2021-05-04 15:47] LABS: Basophils Percent Auto 0.3 % (0-2); Eosinophils Absolute Auto 0.3 X10*3/uL (0.0-0.4); Eosinophils Percent Auto 3.4 % (0-4); Hematocrit 39.9 % (42-52); Hemoglobin 13.2 g/dl (14.0-18.0); Imm Gran Abs Auto 0.05 X10*3/uL (0.00-0.03); Imm Gran Pct Auto 0.6 % (0.0-0.4); Lymphocytes Absolute Auto 1.9 X10*3/uL (1.2-4.9); Lymphocytes Percent Auto 22.4 % (20-40); Mean Corpuscular HGB Conc 33.1 g/dl (31.0-36.0); Mean Corpuscular Hemoglobin 31.9 pg (27.0-33.0); Mean Corpuscular Volume 96.4 fL (80-98); Mean Platelet Volume 10.8 fL (9.4-12.4); Monocytes Absolute Auto 0.7 X10*3/uL (0.1-1.2); Monocytes Percent Auto 8.2 % (2-11); Neutrophils Absolute Auto 5.6 X10*3/uL (2.0-8.3); Neutrophils Percent Auto 65.1 % (45-73); Platelet Count 234 X10*3/uL (160-400); Red Blood Count 4.14 X10*6/uL (4.60-5.80); Red Cell Distribution Width 14.5 % (11.0-16.0); White Blood Count 8.7 X10*3/uL (4.8-10.8)
[2021-05-04 16:08] LABS: Alanine Aminotransferase 62 U/L (0-40); Aspartate Amino Transferase 39 U/L (5-37); Estimated Glomerular Filt Rate > 60
[2021-05-04 16:27] LABS: Syphilis Screen Nonreactive (Nonreactive)
[2021-05-05 14:51] LABS: Absolute CD3 Count 1658 cells/uL (840-3060); Absolute CD4 Count 828 cells/uL (490-1740); Absolute CD8 Count 868 cells/uL (180-1170); Absolute Lymphocytes 2047 cells/uL (850-3900); CD4 CD8 Ratio 0.95 (0.86-5.00); Percent CD3 Cells 81 % (57-85); Percent CD4 Cells 40 % (30-61); Percent CD8 Cells 42 % (12-42)
[2021-05-05 16:16] LABS: HCV Log PCR 7.23 Log IU/mL (NOT DETECTED); HepC Viral Load 17000000 IU/mL (NOT DETECTED)
[2021-05-06 16:22] LABS: HIV RNA PCR Qn Copies <20 NOT DETECTED copies/mL (NOT DETECTED); HIV RNA PCR Qn Log Copies <1.30 NOT DETECTED (NOT DETECTED)
== END 2021-05-04 15:01 | disposition home or self-care (01) ==
LOC: HO.LAB 15:00
PROVIDERS: PCP Internal Medicine; Visit Provider Internal Medicine Infectious Disease
DX: B20 Human immunodeficiency virus [HIV] disease (principal)
CPT/HCPCS: 36415; 82565; 84450; 84460; 85025; 86359; 86360; 86780; 86787; 87522; 87536

== ENCOUNTER 2021-05-10 16:46 | Outpatient (REF) | payer OTHER, SELFPAY ==
[2021-05-10 17:31] LABS: Prothrombin Time 11.5 SEC (9.9-13.0)
[2021-05-10 17:34] LABS: Partial Thromboplastin Time 30.3 SEC (24.1-38.0)
[2021-05-10 17:45] LABS: Alanine Aminotransferase 66 U/L (0-40); Aspartate Amino Transferase 58 U/L (5-37); Bilirubin Total 0.4 mg/dL (0.0-1.0)
[2021-05-11 08:13] LABS: Syphilis Screen Nonreactive (Nonreactive)
[2021-05-11 08:36] LABS: HBsAGNum1 0.19 S/CO (0.00-0.99); Hepatitis B Surface Antigen Negative (Negative)
[2021-05-13 19:17] LABS: FIB-ALT 59 U/L (9-46); FIB-Alpha-2-Macroglobulin 214 mg/dL (106-279); FIB-Apolipoprotein A1 148 mg/dL (94-176); FIB-GGT 197 U/L (3-85); FIB-Haptoglobin 88 mg/dL (43-212); FIB-Total Bilirubin 0.4 mg/dL (0.2-1.2); Liver Fibrosis Score 0.49; Liver Fibrosis Stage F2; Nec Inflam Act Grade A1-A2; Nec Inflam Act Score 0.42
== END 2021-05-10 16:47 | disposition home or self-care (01) ==
LOC: HO.LAB 16:46
PROVIDERS: PCP Internal Medicine; Visit Provider Internal Medicine Infectious Disease
DX: B19.20 Unspecified viral hepatitis C without hepatic coma (principal)
CPT/HCPCS: 36415; 81596; 82040; 82247; 84450; 84460; 85610; 85730; 86780; 87340

== ENCOUNTER 2021-06-06 11:59 | Observation (INO) | payer OTHER, SELFPAY ==
[2021-06-06] VITALS (7 sets, daily range): BP systolic 121–152; BP diastolic 82–99; PULSE 84–109; RESP 16–22; TEMP 36.3–37.3; O2SAT 93–97; BMI 24.7
--- NOTE | ~2021-06-06 | XR_ITS ---
EXAMINATION: XR CHEST CLINICAL INFORMATION: Cough. COMPARISON: None TECHNIQUE: Frontal view of the chest was obtained. FINDINGS: No significant abnormality is noted involving the heart, lungs, mediastinum, bony thorax or soft tissues. XR/XR chest 1V IMPRESSION: Unremarkable chest examination.
--- NOTE | 2021-06-06 12:12 | ECG_ITS ---
Test Reason : CHEST PAIN Blood Pressure : / mmHG Vent. Rate : 108 BPM Atrial Rate : 108 BPM P-R Int : 148 ms QRS Dur : 098 ms QT Int : 346 ms P-R-T Axes : 062 061 032 degrees QTc Int : 463 ms Sinus tachycardia Possible Left atrial enlargement Incomplete right bundle branch block Borderline ECG When compared with ECG of 21-APR-2021 12:31, Vent. rate has increased BY 39 BPM Referred By: Daljit Younger Electronically Signed By:RUBY ISLAS
--- NOTE | 2021-06-06 12:17 | ED_ITS ---
HPI - SOB/Dyspnea General Chief Complaint: Dyspnea Stated Complaint: CHEST PRESSURE X'S 2 NIGHTS PER EMS Time Seen by Provider: 06/06/21 12:12 Source: patient and EMS Mode of arrival: EMS Limitations: no limitations History of Present Illness HPI Narrative: 56 years old male came in by ambulance for evaluation of chest pain, shortness of breath coughing. 56-year-old male with past medical history of HIV, history of asthma. Patient presented with 3 days of having dry cough that turned to productive cough with yellow greenish sputum, patient declined fever chills, patient also been having chest pressure only with coughing for the past 2 days in between coughs there is no chest pain. Patient had a similar presentation 6 weeks ago that require hospitalization. Patient declined recent travel, prolonged immobilization, or lower extremities pain or swelling. No sick contact. Patient receives vaccination for COVID. Related Data Home Medications Medication Instructions Recorded Confirmed amitriptyline 50 mg tablet 2 tab PO BEDTIME 04/21/21 04/21/21 amlodipine 5 mg tablet 1 tab PO DAILY 04/21/21 04/21/21 bictegravir 50 mg-emtricitabine 1 tab PO DAILY 04/21/21 04/21/21 200 mg-tenofovir alafenam 25 mg tablet (Biktarvy) clonazepam 1 mg tablet 1 tab PO BID 04/21/21 04/21/21 diphenhydramine HCl 25 mg capsule 2 cap PO BEDTIME PRN 04/21/21 04/21/21 (Banophen) fluticasone propionate 110 1 puff PO BID 04/21/21 04/21/21 mcg/actuation HFA aerosol inhaler (Flovent HFA) gabapentin 600 mg tablet 1 tab PO TID 04/21/21 04/21/21 mirtazapine 30 mg tablet 1 tab PO BEDTIME 04/21/21 04/21/21 propranolol 120 mg capsule,24 1 cap PO DAILY 04/21/21 04/21/21 hr,extended release tramadol 50 mg tablet 1 tab PO DAILY PRN 04/21/21 04/21/21 Previous Rx's Medication Instructions Recorded ibuprofen 600 mg tablet 600 mg PO Q8H PRN #10 tab 12/17/20 polyethylene glycol 3350 17 17 g PO DAILY #119 g 12/17/20 gram/dose oral powder (Miralax) albuterol sulfate 90 mcg/actuation 2 puff PO Q4-6H PRN #8.5 g 04/18/21 aerosol inhaler cefuroxime axetil 500 mg tablet 500 mg PO BID #16 tab 04/23/21 clindamycin HCl 300 mg capsule 300 mg PO QID #32 cap 04/23/21 diphenhydramine HCl 2 % topical 1 appl TOPICAL TID PRN #30 g 04/23/21 cream prednisone 20 mg tablet 40 mg PO DAILY #6 tab 04/23/21 valacyclovir 1 gram tablet 1,000 mg PO Q8H #18 tab 04/23/21 ibuprofen 600 mg tablet 600 mg PO TID PRN #10 tab 05/02/21 prednisone 20 mg tablet 20 mg PO DAILY #5 tab 05/02/21 Allergies Allergy/AdvReac Type Severity Reaction Status Date / Time codeine Allergy Mild RASH Unverified 05/27/20 15:16 [From Tylenol-Codeine #3] levofloxacin [From LEVAQUIN] Allergy Mild Rash Unverified 05/27/20 15:16 metoclopramide [From Reglan] Allergy Mild RASH Unverified 05/27/20 15:16 acetaminophen Allergy Unknown Verified 10/03/19 00:00 [Tylenol-Codeine #3] Motrin Allergy Unknown REflux Unverified 01/06/20 00:00 Penicillins [PENICILLINS] Allergy Unknown RASH Unverified 05/27/20 15:16 tramadol [From Ultram] AdvReac Mild N/V Unverified 05/27/20 15:16 SEASONAL ALLERGIES Allergy Intermediate EYE Uncoded 05/27/20 15:16 DRAINAGE penicillin Allergy Unknown Uncoded 01/06/20 00:00 Review of Systems Review of Systems: All other systems are reviewed and are negative Constitutional: Reports as per HPI and Reports no additional constitutional complaints Eyes: Reports as per HPI and Reports no additional eye complaints Reports system reviewed and no additional complaints, except as documented Cardiovascular: Reports as per HPI and Reports no additional cardiovascular complaints Respiratory: Reports as per HPI and Reports no additional respiratory complaints Gastrointestinal: Reports as per HPI and Reports no additional gastrointestinal complaints Genitourinary: Reports no additional female genitourinary complaints Musculoskeletal: Reports no additional musculoskeletal complaints Skin/Breast: Reports system reviewed and no additional complaints, except as docu Psychiatric: Reports no additional psychiatric complaints Endocrine: Reports no additional endocrine complaints Hematologic/Lymphatic: Reports no additional hematologic/lymphatic complaints Allergic/Immunologic: Reports no additional allergic/immunologic complaints Reports system reviewed and no additional complaints, except as documented and Reports Abnormal speech present [facility] Past Medical History Medical History Asthma Depression Hemorrhoids HIV (human immunodeficiency virus infection) Kidney stones Pleuritic chest pain Pneumonia Substance abuse Social History Social History Household Members: None Housing: Apartment Do you presently have visiting nurse or other home services: Yes Alcohol intake: never Patient Tobacco Use Status: Never used Tobacco Advance Directives: Yes Advance Directives on File: Yes Advance Directives Date on File: 04/25/21 service: No Current occupational status: disabled Physical Exam Vital Signs: Vital Signs: Last Vital Signs Temp 99.2 F 06/06/21 12:07 Pulse 109 H 06/06/21 13:00 Resp 22 H 06/06/21 13:00 BP 121/83 06/06/21 13:00 Pulse Ox 97 06/06/21 13:00 Body Mass Index 24.7 Vital signs have been reviewed as appeared to be correct. Blood pressure normal. Heart rate normal. Respiration rate normal. Temperature normal. Oxygen saturation normal. Appearance: Alert. Oriented X3. No acute distress. Head: Normal external exam. Normocephalic. Atraumatic. No [place] signs noted. No raccoon eyes noted Eyes: PERRLA. EOMI. Conjunctiva and sclera normal. Eyelids normal. ENT: TM's Normal. Pharynx normal. Uvula midline. Moist mucous membranes. No trismus noted. No drooling noted. No muffled voice noted. Neck: Normal inspection. Neck supple. FROM. No adenopathy. Thyroid Normal. No meningeal signs. No neck mass noted. CVS: Normal heart rate and rhythm. Heart sound normal. No murmurs noted. Pulses normal throughout. Respiratory: No respiratory distress. Painless inspiration. Breath sounds normal, mild diffuse expiratory wheezes, prolonged expiration. Chest nontender. No accessory muscle usage noted or decreased air movement noted. Abdomen: Soft and nontender. Bowel sounds normal in all 4 quadrants. No distention noted. No organomegaly noted. No visible injury noted. Back: No CVA tenderness. Full range of motion noted. Skin: Skin warm and dry. Normal skin color. Normal skin turgor. No rashes/lesions/lacerations noted. Extremities: No lower extremity edema. Extremities exhibit normal range of motion. Extremities nontender. Neuro: Oriented X 3. Cranial nerve exam: II-XII are grossly intact No motor deficit. No sensory deficit. Reflexes normal. Course Course Course Narrative: 56-year-old male history of HIV/asthma, recent hospitalization for asthma exacerbation/bronchitis. Patient presented with acute bronchitis/asthma exacerbation with hypoxia that is improving with supplemental oxygen. Patient received multiple doses of bronchodilator with steroid, patient partially feels better. Will admit. MDM - SOB/Dyspnea Lab Data Attestation: I reviewed the patient's lab results. Result diagrams: 06/06/21 12:30 06/06/21 12:30 Labs: Lab Results 06/06/21 06/06/21 06/06/21 Range/Units 12:30 12:30 12:30 WBC 7.5 (4.8-10.8) X10*3/uL RBC 4.33 L (4.60-5.80) X10*6/uL Hgb 13.9 L (14.0-18.0) g/dl Hct 41.6 L (42-52) % MCV 96.1 (80-98) fL MCH 32.1 (27.0-33.0) pg MCHC 33.4 (31.0-36.0) g/dl RDW 13.4 (11.0-16.0) % Plt Count 236 (160-400) X10*3/uL MPV 11.7 (9.4-12.4) fL Immature Gran % (Auto) 0.3 (0.0-0.4) % Neut % (Auto) 68.6 (45-73) % Lymph % (Auto) 8.4 L (20-40) % [place] % (Auto) 10.6 (2-11) % Eos % (Auto) 11.0 H (0-4) % Baso % (Auto) 1.1 (0-2) % Lymph # (Auto) 0.6 L (1.2-4.9) X10*3/uL [place] # (Auto) 0.8 (0.1-1.2) X10*3/uL Eos # (Auto) 0.8 H (0.0-0.4) X10*3/uL Baso # (Auto) 0.1 (0.0-0.2) X10*3/uL Abs Immat Gran (auto) 0.02 (0.00-0.03) X10*3/uL Absolute Neuts (auto) 5.2 (2.0-8.3) X10*3/uL Absolute Nucleated RBC 0.000 (0.0-0.012) X10*3/uL Nucleated RBC % (auto) 0.0 (0.0-0.2) /100WBC Sodium 138 (135-145) mmol/L Potassium 4.2 (3.3-5.1) mmol/L Chloride 102 (96-108) mmol/L Carbon Dioxide 26 (22-29) mmol/L Anion Gap 14 (12-20) BUN 6 L (9-16) mg/dL Creatinine 0.80 (0.5-1.4) mg/dL Estim Creat Clear Calc 88.6 Estimated GFR > 60 Random Glucose 111 (60-115) mg/dL Lactic Acid (0.5-2.0) mmol/L Calcium 9.1 (8.4-10.2) mg/dL Total Bilirubin 0.6 (0.0-1.0) mg/dL Direct Bilirubin 0.3 (0.0-0.5) mg/dL AST 20 D (5-37) U/L ALT 24 (0-40) U/L Alkaline Phosphatase 107 (39-117) U/L Troponin I High Sens 5.1 (<3.5-35.0) ng/L B-Natriuretic Peptide (<100) pg/mL Total Protein 7.3 (6.5-8.0) g/dL Albumin 3.9 (3.5-5.0) g/dL Lipase < 4 L (8-78) U/L Urine Color Urine Appearance Urine pH (5.0-8.0) Ur Specific [place] (1.005-1.025) Urine Protein (NEG-TRACE) MG/DL Urine Glucose (UA) (NEG) MG/DL Urine Ketones (NEG) MG/DL Urine Blood (NEG) Urine Nitrite (NEG) Ur Leukocyte Esterase (NEG) COVID-19 (TAMMIE) (Negative) COVID-19 Clin Com 06/06/21 06/06/21 06/06/21 Range/Units 12:30 12:30 12:30 WBC (4.8-10.8) X10*3/uL RBC (4.60-5.80) X10*6/uL Hgb (14.0-18.0) g/dl Hct (42-52) % MCV (80-98) fL MCH (27.0-33.0) pg MCHC (31.0-36.0) g/dl RDW (11.0-16.0) % Plt Count (160-400) X10*3/uL MPV (9.4-12.4) fL Immature Gran % (Auto) (0.0-0.4) % Neut % (Auto) (45-73) % Lymph % (Auto) (20-40) % [place] % (Auto) (2-11) % Eos % (Auto) (0-4) % Baso % (Auto) (0-2) % Lymph # (Auto) (1.2-4.9) X10*3/uL [place] # (Auto) (0.1-1.2) X10*3/uL Eos # (Auto) (0.0-0.4) X10*3/uL Baso # (Auto) (0.0-0.2) X10*3/uL Abs Immat Gran (auto) (0.00-0.03) X10*3/uL Absolute Neuts (auto) (2.0-8.3) X10*3/uL Absolute Nucleated RBC (0.0-0.012) X10*3/uL Nucleated RBC % (auto) (0.0-0.2) /100WBC Sodium (135-145) mmol/L Potassium (3.3-5.1) mmol/L Chloride (96-108) mmol/L Carbon Dioxide (22-29) mmol/L Anion Gap (12-20) BUN (9-16) mg/dL Creatinine (0.5-1.4) mg/dL Estim Creat Clear Calc Estimated GFR Random Glucose (60-115) mg/dL Lactic Acid 1.3 (0.5-2.0) mmol/L Calcium (8.4-10.2) mg/dL Total Bilirubin (0.0-1.0) mg/dL Direct Bilirubin (0.0-0.5) mg/dL AST (5-37) U/L ALT (0-40) U/L Alkaline Phosphatase (39-117) U/L Troponin I High Sens (<3.5-35.0) ng/L B-Natriuretic Peptide 64 (<100) pg/mL Total Protein (6.5-8.0) g/dL Albumin (3.5-5.0) g/dL Lipase (8-78) U/L Urine Color Urine Appearance Urine pH (5.0-8.0) Ur Specific [place] (1.005-1.025) Urine Protein (NEG-TRACE) MG/DL Urine Glucose (UA) (NEG) MG/DL Urine Ketones (NEG) MG/DL Urine Blood (NEG) Urine Nitrite (NEG) Ur Leukocyte Esterase (NEG) COVID-19 (TAMMIE) Negative (Negative) COVID-19 Clin Com See Note 06/06/21 Range/Units 12:49 WBC (4.8-10.8) X10*3/uL RBC (4.60-5.80) X10*6/uL Hgb (14.0-18.0) g/dl Hct (42-52) % MCV (80-98) fL MCH (27.0-33.0) pg MCHC (31.0-36.0) g/dl RDW (11.0-16.0) % Plt Count (160-400) X10*3/uL MPV (9.4-12.4) fL Immature Gran % (Auto) (0.0-0.4) % Neut % (Auto) (45-73) % Lymph % (Auto) (20-40) % [place] % (Auto) (2-11) % Eos % (Auto) (0-4) % Baso % (Auto) (0-2) % Lymph # (Auto) (1.2-4.9) X10*3/uL [place] # (Auto) (0.1-1.2) X10*3/uL Eos # (Auto) (0.0-0.4) X10*3/uL Baso # (Auto) (0.0-0.2) X10*3/uL Abs Immat Gran (auto) (0.00-0.03) X10*3/uL Absolute Neuts (auto) (2.0-8.3) X10*3/uL Absolute Nucleated RBC (0.0-0.012) X10*3/uL Nucleated RBC % (auto) (0.0-0.2) /100WBC Sodium (135-145) mmol/L Potassium (3.3-5.1) mmol/L Chloride (96-108) mmol/L Carbon Dioxide (22-29) mmol/L Anion Gap (12-20) BUN (9-16) mg/dL Creatinine (0.5-1.4) mg/dL Estim Creat Clear Calc Estimated GFR Random Glucose (60-115) mg/dL Lactic Acid (0.5-2.0) mmol/L Calcium (8.4-10.2) mg/dL Total Bilirubin (0.0-1.0) mg/dL Direct Bilirubin (0.0-0.5) mg/dL AST (5-37) U/L ALT (0-40) U/L Alkaline Phosphatase (39-117) U/L Troponin I High Sens (<3.5-35.0) ng/L B-Natriuretic Peptide (<100) pg/mL Total Protein (6.5-8.0) g/dL Albumin (3.5-5.0) g/dL Lipase (8-78) U/L Urine Color YELLOW Urine Appearance CLEAR Urine pH 7.5 (5.0-8.0) Ur Specific [place] 1.010 (1.005-1.025) Urine Protein NEG (NEG-TRACE) MG/DL Urine Glucose (UA) NEG (NEG) MG/DL Urine Ketones 5 (NEG) MG/DL Urine Blood NEG (NEG) Urine Nitrite NEG (NEG) Ur Leukocyte Esterase NEG (NEG) COVID-19 (TAMMIE) (Negative) COVID-19 Clin Com Imaging Data Chest x-ray: Radiologist's impression: Unremarkable chest examination. ECG Data Interpretation: Sinus tachycardia at 108 beats per minutes, normal axis deviation, normal intervals, no ST-T changes. Discharge Plan Discharge Clinical Impression: Asthma with exacerbation, Hypoxia Patient Disposition: Admitted As Inpatient Prescriptions: No Action albuterol sulfate 90 mcg/actuation HFA aerosol inhaler 2 puff PO Q4-6H PRN (Reason: for dyspnea) Qty: 8.5 RF: 3 polyethylene glycol 3350 [Miralax] 17 gram/dose powder 17 g PO DAILY Qty: 119 RF: 0 ibuprofen 600 mg tablet 600 mg PO Q8H PRN (Reason: pain) Qty: 10 RF: 0 gabapentin 600 mg tablet 1 tab PO TID RF: 0 clonazepam 1 mg tablet 1 tab PO BID RF: 0 amlodipine 5 mg tablet 1 tab PO DAILY RF: 0 tramadol 50 mg tablet 1 tab PO DAILY PRN (Reason: Migraine Headache) RF: 0 amitriptyline 50 mg tablet 2 tab PO BEDTIME RF: 0 diphenhydramine HCl [Banophen] 25 mg capsule 2 cap PO BEDTIME PRN (Reason: Allergy Symptoms) RF: 0 mirtazapine 30 mg tablet 1 tab PO BEDTIME RF: 0 propranolol 120 mg capsule,extended release 24 hr 1 cap PO DAILY RF: 0 Flovent HFA 110 mcg/actuation HFA aerosol inhaler 1 puff PO BID RF: 0 Biktarvy 50-200-25 mg tablet 1 tab PO DAILY RF: 0 cefuroxime axetil 500 mg tablet 500 mg PO BID Qty: 16 RF: 0 clindamycin HCl 300 mg capsule 300 mg PO QID Qty: 32 RF: 0 valacyclovir 1 gram Tablet 1,000 mg PO Q8H Qty: 18 RF: 0 diphenhydramine HCl 2 % cream 1 appl topical TID PRN (Reason: itching) Qty: 30 RF: 0 prednisone 20 mg tablet 40 mg PO DAILY Qty: 6 RF: 0 ibuprofen 600 mg tablet 600 mg PO TID PRN (Reason: pain) Qty: 10 RF: 0 prednisone 20 mg tablet 20 mg PO DAILY Qty: 5 RF: 0
[2021-06-06 12:35] LABS: MANUAL DIFF FLAG NO
[2021-06-06] MEDS: Albuterol/Iprat 2.5/0.5MG 3 ML AMPUL.NEB INHALE ×3 (12:42→19:25)
[2021-06-06] MEDS: Albuterol Sulfate (0.083%) 2.5 MG/3 ML VIAL.NEB 5 MG INHALE (12:42)
[2021-06-06] MEDS: methylPREDNISolone Sod Succ 125 MG/2 ML VIAL IVPUSH (12:49)
--- NOTE | 2021-06-06 12:53 | PC.NURSE ---
patient arrives to ED with c/o SOB. States has had an increase of SOB for several days. Hx of HIV. states only takes meds for that. A+ox4. Labs drawn and sent. IV placed and flushed. Blood cultures obtained. Meds given per NOV. Resting safely.
[2021-06-06 12:57] LABS: Lactic Acid 1.3 mmol/L (0.5-2.0)
[2021-06-06 13:00] LABS: Appearance Urine CLEAR; Color Urine YELLOW; Glucose Urine UA NEG (NEG); Leukocyte Esterase Urine NEG (NEG); Nitrite Urine NEG (NEG); PH 7.5 (5.0-8.0); Urine Blood NEG (NEG); Urine Ketones 5 MG/DL (NEG); Urine Protein NEG (NEG-TRACE)
[2021-06-06 13:02] LABS: Basophils Absolute Auto 0.1 X10*3/uL (0.0-0.2); Basophils Percent Auto 1.1 % (0-2); Eosinophils Absolute Auto 0.8 X10*3/uL (0.0-0.4); Hematocrit 41.6 % (42-52); Hemoglobin 13.9 g/dl (14.0-18.0); Imm Gran Abs Auto 0.02 X10*3/uL (0.00-0.03); Imm Gran Pct Auto 0.3 % (0.0-0.4); Lymphocytes Absolute Auto 0.6 X10*3/uL (1.2-4.9); Lymphocytes Percent Auto 8.4 % (20-40); Mean Corpuscular HGB Conc 33.4 g/dl (31.0-36.0); Mean Corpuscular Hemoglobin 32.1 pg (27.0-33.0); Mean Corpuscular Volume 96.1 fL (80-98); Mean Platelet Volume 11.7 fL (9.4-12.4); Monocytes Absolute Auto 0.8 X10*3/uL (0.1-1.2); Monocytes Percent Auto 10.6 % (2-11); Neutrophils Absolute Auto 5.2 X10*3/uL (2.0-8.3); Neutrophils Percent Auto 68.6 % (45-73); Platelet Count 236 X10*3/uL (160-400); Red Blood Count 4.33 X10*6/uL (4.60-5.80); Red Cell Distribution Width 13.4 % (11.0-16.0); White Blood Count 7.5 X10*3/uL (4.8-10.8)
[2021-06-06 13:04] LABS: COVID-19 Test Negative (Negative); IDNOW Serial# 9DD0AD1C
[2021-06-06 13:05] LABS: Troponin-I High Sensitivity 5.1 ng/L (<3.5-35.0)
[2021-06-06 13:09] LABS: B Type Natriuretic Peptide 64 pg/mL (<100)
[2021-06-06 13:17] LABS: Alanine Aminotransferase 24 U/L (0-40); Albumin Level 3.9 g/dL (3.5-5.0); Alkaline Phosphatase 107 U/L (39-117); Anion Gap 14 (12-20); Aspartate Amino Transferase 20 U/L (5-37); Bilirubin Direct 0.3 mg/dL (0.0-0.5); Bilirubin Total 0.6 mg/dL (0.0-1.0); Blood Urea Nitrogen 6 mg/dL (9-16); Calcium 9.1 mg/dL (8.4-10.2); Carbon Dioxide 26 mmol/L (22-29); Chloride 102 mmol/L (96-108); Creatinine Clr Calc Pharmacy 88.6; Estimated Glomerular Filt Rate > 60; Glucose Random 111 mg/dL (60-115); Lipase < 4 U/L (8-78); Potassium 4.2 mmol/L (3.3-5.1); Sodium 138 mmol/L (135-145); Total Protein 7.3 g/dL (6.5-8.0)
--- NOTE | 2021-06-06 14:14 | PM.IMHP ---
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 He endorses pleuritic chest pain which began after several days of severe coughing. He reports that tried to use his inhalers at home without much improvement and so he presented to the hospital. He denies any sick contacts, recent travel or prolonged in activity/recent surgery. He denies tobacco smoking. He reports completing his COVID vaccination series (Moderna). He reports compliance with his HAART. Per verbal discussion with the ED provider -- the patient presented with saturation which decreased down to 88% on RA. This improved with 2L supplemental oxygen and has been able to weaned down to 1L. However, the patient still remains mildly tachypnenic and tachycardic. Therefore, admission has been requested. Patient is seen in the ED. He reports that he feels better but still has ARIZMENDI and severe cough. He endorses pleuritic chest pain. Review of Systems Review of Systems: General - denies fevers, denies weakness or fatigue; +chills HEENT -denies blurred vision, denies headache, denies sore throat Cardiovascular - denies chest pain or palpitations, denies edema Respiratory - +cough productive of greenish sputum; +wheezing; +pleurtic chest pain; +short of breath Gastrointestinal - denies abdominal pain, nausea, vomiting, diarrhea - denies flank pain, denies dysuria, denies frequency or urgency Musculoskeletal - denies back pain, denies hip pain, denies knee pain, denies shoulder pain Neurological - denies any focal weakness or numbness Skin, denies any bruising or redness Psychiatric - denies any suicidal ideation, hallucinations, homicidal ideation Endocrinology - denies intolerance to hot / cold temperatures PMFSH Medical History Asthma Depression Hemorrhoids HIV (human immunodeficiency virus infection) Kidney stones Pleuritic chest pain Pneumonia Substance abuse Pertinent family history: His parents are . Both had lung cancer in their 70s and 80s. Surgical History H/O hemorrhoidectomy Social History Household Members: None Housing: Apartment Do you presently have visiting nurse or other home services: Yes Alcohol intake: never Patient Tobacco Use Status: Never used Tobacco Advance Directives: Yes Advance Directives on File: Yes Advance Directives Date on File: 04/25/21 service: No Current occupational status: disabled Meds Allergies Allergy/AdvReac Type Severity Reaction Status Date / Time codeine Allergy Mild RASH Unverified 05/27/20 15:16 [From Tylenol-Codeine #3] levofloxacin [From LEVAQUIN] Allergy Mild Rash Unverified 05/27/20 15:16 metoclopramide [From Reglan] Allergy Mild RASH Unverified 05/27/20 15:16 acetaminophen Allergy Unknown Verified 10/03/19 00:00 [Tylenol-Codeine #3] Motrin Allergy Unknown REflux Unverified 01/06/20 00:00 Penicillins [PENICILLINS] Allergy Unknown RASH Unverified 05/27/20 15:16 tramadol [From Ultram] AdvReac Mild N/V Unverified 05/27/20 15:16 SEASONAL ALLERGIES Allergy Intermediate EYE Uncoded 05/27/20 15:16 DRAINAGE penicillin Allergy Unknown Uncoded 01/06/20 00:00 Home Medications Medication Instructions Recorded Confirmed Last Taken Type amitriptyline 50 mg tablet 2 tab PO BEDTIME 04/21/21 04/21/21 04/20/21 History amlodipine 5 mg tablet 1 tab PO DAILY 04/21/21 04/21/21 04/20/21 History bictegravir 50 mg-emtricitabine 1 tab PO DAILY 04/21/21 04/21/21 04/20/21 History 200 mg-tenofovir alafenam 25 mg tablet (Biktarvy) clonazepam 1 mg tablet 1 tab PO BID 04/21/21 04/21/21 04/20/21 History diphenhydramine HCl 25 mg capsule 2 cap PO BEDTIME PRN 04/21/21 04/21/21 Unknown History (Banophen) fluticasone propionate 110 1 puff PO BID 04/21/21 04/21/21 04/20/21 History mcg/actuation HFA aerosol inhaler (Flovent HFA) gabapentin 600 mg tablet 1 tab PO TID 04/21/21 04/21/21 04/20/21 History mirtazapine 30 mg tablet 1 tab PO BEDTIME 04/21/21 04/21/21 Unknown History propranolol 120 mg capsule,24 1 cap PO DAILY 04/21/21 04/21/21 04/20/21 History hr,extended release tramadol 50 mg tablet 1 tab PO DAILY PRN 04/21/21 04/21/21 Unknown History Physical Exam Vital Signs and Narrative: Vital Signs: Last Vital Signs Temp 99.2 F 06/06/21 12:07 Pulse 109 H 06/06/21 13:00 Resp 22 H 06/06/21 13:00 BP 121/83 06/06/21 13:00 Pulse Ox 97 06/06/21 13:00 Body Mass Index 24.7 Const: Other: Constitutional - Awake and Alert, No apparent distress Eyes - PERRLA, EOMI Cardiovascular - S1S2, tachycardic around 110 Respiratory - diffuse rhonchi, tachypenic to low 20s; oxygen saturation 93-94% on 1L Gastrointestinal - NT / ND; +BS; No rebound or guarding - No CVA tenderness Extremities - no calf tenderness bilaterally, no swelling Musculoskeletal - Normal inspection, normal ROM Skin - Warm/Dry Neurological - Alert & oriented x3, No focal deficit Psychological - Appropriate affect Results Labs CBC and Chem 7: 06/06/21 12:30 06/06/21 12:30 Labs: Laboratory Results - last 24 hr 06/06/21 06/06/21 06/06/21 12:30 12:30 12:30 MCV 96.1 MCH 32.1 MCHC 33.4 RDW 13.4 Plt Count 236 MPV 11.7 Immature Gran % (Auto) 0.3 Neut % (Auto) 68.6 Lymph % (Auto) 8.4 L [place] % (Auto) 10.6 Eos % (Auto) 11.0 H Baso % (Auto) 1.1 Lymph # (Auto) 0.6 L [place] # (Auto) 0.8 Eos # (Auto) 0.8 H Baso # (Auto) 0.1 Abs Immat Gran (auto) 0.02 Absolute Neuts (auto) 5.2 Absolute Nucleated RBC 0.000 Nucleated RBC % (auto) 0.0 Anion Gap 14 Estim Creat Clear Calc 88.6 Estimated GFR > 60 Random Glucose 111 Lactic Acid Calcium 9.1 Total Bilirubin 0.6 Direct Bilirubin 0.3 AST 20 D ALT 24 Alkaline Phosphatase 107 Troponin I High Sens 5.1 B-Natriuretic Peptide Total Protein 7.3 Albumin 3.9 Lipase < 4 L Urine Color Urine Appearance Urine pH Ur Specific [place] Urine Protein Urine Glucose (UA) Urine Ketones Urine Blood Urine Nitrite Ur Leukocyte Esterase COVID-19 (TAMMIE) COVID-19 Clin Com 06/06/21 06/06/21 06/06/21 12:30 12:30 12:30 MCV MCH MCHC RDW Plt Count MPV Immature Gran % (Auto) Neut % (Auto) Lymph % (Auto) [place] % (Auto) Eos % (Auto) Baso % (Auto) Lymph # (Auto) [place] # (Auto) Eos # (Auto) Baso # (Auto) Abs Immat Gran (auto) Absolute Neuts (auto) Absolute Nucleated RBC Nucleated RBC % (auto) Anion Gap Estim Creat Clear Calc Estimated GFR Random Glucose Lactic Acid 1.3 Calcium Total Bilirubin Direct Bilirubin AST ALT Alkaline Phosphatase Troponin I High Sens B-Natriuretic Peptide 64 Total Protein Albumin Lipase Urine Color Urine Appearance Urine pH Ur Specific [place] Urine Protein Urine Glucose (UA) Urine Ketones Urine Blood Urine Nitrite Ur Leukocyte Esterase COVID-19 (TAMMIE) Negative COVID-19 Clin Com See Note 06/06/21 12:49 MCV MCH MCHC RDW Plt Count MPV Immature Gran % (Auto) Neut % (Auto) Lymph % (Auto) [place] % (Auto) Eos % (Auto) Baso % (Auto) Lymph # (Auto) [place] # (Auto) Eos # (Auto) Baso # (Auto) Abs Immat Gran (auto) Absolute Neuts (auto) Absolute Nucleated RBC Nucleated RBC % (auto) Anion Gap Estim Creat Clear Calc Estimated GFR Random Glucose Lactic Acid Calcium Total Bilirubin Direct Bilirubin AST ALT Alkaline Phosphatase Troponin I High Sens B-Natriuretic Peptide Total Protein Albumin Lipase Urine Color YELLOW Urine Appearance CLEAR Urine pH 7.5 Ur Specific [place] 1.010 Urine Protein NEG Urine Glucose (UA) NEG Urine Ketones 5 Urine Blood NEG Urine Nitrite NEG Ur Leukocyte Esterase NEG COVID-19 (TAMMIE) COVID-19 Clin Com Imaging Radiologist's Impressions: Impressions Chest X-Ray 06/06/21 12:12 IMPRESSION: Unremarkable chest examination. Assessment and Plan (1) Asthma with exacerbation: Status: Acute This is a 56 yo M who is HIV positive on HAART with last CD4 count > 200 and last viral load undetectable who presents to the hospital with a 3 to 4 day history of progressive shortness of breath, cough and chills. He will be admitted for further work up. 1. Acute asthma exacerbation Schduled and PRN bronchodilators IV solu-medrol 40mg BID empiric doxy for presumed bronchitis -- patient does not have severe sepsis wean oxygen 2. HIV on HAART continue his HAART once med rec completed 3. Hep C positive outpatient f/u treatment 4. HTN stable, continue baseline meds 5. Mood disorder continue baseline meds Med rec not completed at the time of this note -- will continue baseline home meds (as appropriate) once med rec completed. Full Code DVT pptx, moderate to high risk -- will use Lovenox. Quality Stroke Does the patient have a stroke diagnosis?: No VTE Prior VTE?: No VTE Risk Level:: Medical - moderate - high VTE Device Contraindication: Treatment Not Indicated VTE Drug Contraindication: N/A - Med Ordered
[2021-06-06] MEDS: Enoxaparin Sodium 40 MG/0.4 ML SYRINGE SUBCUT (14:26)
[2021-06-06] MEDS: Ibuprofen 400 MG TABLET PO (19:08)
--- NOTE | 2021-06-06 19:30 | PHA.MEDREC ---
Pharmacy Consult ? Medication Reconciliation Pharmacy has completed the medication reconciliation. Patient does not know what amlodipine, propranol, and risperidone are and beleive he is not taking them. Amlodipine has been fill from since 08/27/2020-05/21/2021, Propranol 06/19/2020-05/21/2021, and Risperidone was increase from 0.5mg to 1mg on 02/19/2021-04/18/2021. Chelo Fung, PharmD
[2021-06-06] MEDS: Lidocaine 4 % Patch ADH..PATCH 1 PATCH TRANSDERMA (19:59)
[2021-06-06] MEDS: clonazePAM 1 MG TABLET PO (22:04)
[2021-06-06] MEDS: Mirtazapine 30 MG TABLET PO (23:58)
[2021-06-06] MEDS: Amitriptyline HCl 50 MG TABLET 100 MG PO (23:58)
[2021-06-06] MEDS: Gabapentin 600 MG TABLET PO (23:58)
[2021-06-07] VITALS: BP 117/77; PULSE 89; RESP 18; TEMP 36.9; O2SAT 93
[2021-06-07] MEDS: methylPREDNISolone Sod Succ 40 MG/ML VIAL IVPUSH (02:47)
[2021-06-07 03:52] VITALS: BP 145/83; PULSE 79; RESP 18; TEMP 36.1; O2SAT 91
[2021-06-07 07:19] VITALS: BP 138/91; PULSE 73; RESP 18; TEMP 36.4; O2SAT 92
[2021-06-07] MEDS: Albuterol/Iprat 2.5/0.5MG 3 ML AMPUL.NEB INHALE ×2 (07:22→11:05)
[2021-06-07 07:23] VITALS: PULSE 94; O2SAT 96
[2021-06-07] MEDS: clonazePAM 1 MG TABLET PO (09:20)
[2021-06-07] MEDS: Multivitamin TABLET 1 TAB PO (09:20)
[2021-06-07] MEDS: Gabapentin 600 MG TABLET PO (09:20)
[2021-06-07] MEDS: Lidocaine 4 % Patch ADH..PATCH 1 PATCH TRANSDERMA (09:21)
--- NOTE | 2021-06-07 09:45 | P.DS_ITS ---
DS: Providers Provider Date of Service: 06/07/21 Date of admission: 06/06/21 14:09 Primary care physician: Unknown Physician Attending physician on discharge: Casey Almonte Discharging clinician: Poppy Marcus DS: Diagnosis Discharge Diagnosis (1) Asthma with exacerbation: Status: Acute DS: Summary Hospital Course Hospital Course: HP as per admitting provider This is a 56 yo [place] speaking(history obtained with the use of bedside [place] speaking reinforcement maker) M with a PMH of Asthma/COPD (reports not formally diagnosed), HIV on HAART with last CD4 on Apr and undetectable viral load, Hep C positive who presents to the hospital with complaints of progressive shortness of breath (initially with exertion and now with minimal activity) with associated chills and a cough productive of greenish sputum. He endorses pleuritic chest pain which began after several days of severe coughing. He reports that tried to use his inhalers at home without much improvement and so he presented to the hospital. He denies any sick contacts, recent travel or prolonged in activity/recent surgery. He denies tobacco smoking. He reports completing his COVID vaccination series (Moderna). He reports compliance with his HAART. Per verbal discussion with the ED provider -- the patient presented with saturation which decreased down to 88% on RA. This improved with 2L supplemental oxygen and has been able to weaned down to 1L. However, the patient still remains mildly tachypnenic and tachycardic. Therefore, admission has been requested. Patient is seen in the ED. He reports that he feels better but still has ARIZMENDI and severe cough. He endorses pleuritic chest pain . Asthma exacerbation. Treated with scheduled and PRN bronchodilators. IV solu- medrol 40mg BID, empiric doxy for presumed bronchitis. Will be sent home with 4 more days of prednisone and doxycyline. HIV on HAART. continue his HAART Time Spent with Patient Time attestation: Total time spent providing and/or coordinating discharge services: Discharge coordination time: Greater than 30 minutes Quality: Stroke Does the patient have a stroke diagnosis?: No Physical Exam Vital Signs: Vital Signs: Last Vital Signs Temp 97.6 F 06/07/21 07:19 Pulse 94 06/07/21 07:23 Resp 18 06/07/21 07:19 BP 138/91 H 06/07/21 07:19 Pulse Ox 92 06/07/21 07:19 Body Mass Index 24.7 Appearing in no acute distress head is normocephalic atraumatic eyes pupils are PERRLA sclera is anicteric mouth throat mucous membranes are intact and moist neck is supple no lymphadenopathy, no JVD noted lung sounds are clear to auscultation heart regular rate rhythm, clear S1, S2 positive bowel sounds, abdomen is soft, nontender neuro patient is alert x3, no focal deficits DS: Data Data Completed and Pending Labs on day of discharge: Laboratory Results - last 24 hr 06/06/21 06/06/21 06/06/21 12:30 12:30 12:30 WBC 7.5 RBC 4.33 L Hgb 13.9 L Hct 41.6 L MCV 96.1 MCH 32.1 MCHC 33.4 RDW 13.4 Plt Count 236 MPV 11.7 Immature Gran % (Auto) 0.3 Neut % (Auto) 68.6 Lymph % (Auto) 8.4 L [place] % (Auto) 10.6 Eos % (Auto) 11.0 H Baso % (Auto) 1.1 Lymph # (Auto) 0.6 L [place] # (Auto) 0.8 Eos # (Auto) 0.8 H Baso # (Auto) 0.1 Abs Immat Gran (auto) 0.02 Absolute Neuts (auto) 5.2 Absolute Nucleated RBC 0.000 Nucleated RBC % (auto) 0.0 Sodium 138 Potassium 4.2 Chloride 102 Carbon Dioxide 26 Anion Gap 14 BUN 6 L Creatinine 0.80 Estim Creat Clear Calc 88.6 Estimated GFR > 60 Random Glucose 111 Lactic Acid Calcium 9.1 Total Bilirubin 0.6 Direct Bilirubin 0.3 AST 20 D ALT 24 Alkaline Phosphatase 107 Troponin I High Sens 5.1 B-Natriuretic Peptide Total Protein 7.3 Albumin 3.9 Lipase < 4 L Urine Color Urine Appearance Urine pH Ur Specific [place] Urine Protein Urine Glucose (UA) Urine Ketones Urine Blood Urine Nitrite Ur Leukocyte Esterase COVID-19 (TAMMIE) COVID-19 Clin Com 06/06/21 06/06/21 06/06/21 12:30 12:30 12:30 WBC RBC Hgb Hct MCV MCH MCHC RDW Plt Count MPV Immature Gran % (Auto) Neut % (Auto) Lymph % (Auto) [place] % (Auto) Eos % (Auto) Baso % (Auto) Lymph # (Auto) [place] # (Auto) Eos # (Auto) Baso # (Auto) Abs Immat Gran (auto) Absolute Neuts (auto) Absolute Nucleated RBC Nucleated RBC % (auto) Sodium Potassium Chloride Carbon Dioxide Anion Gap BUN Creatinine Estim Creat Clear Calc Estimated GFR Random Glucose Lactic Acid 1.3 Calcium Total Bilirubin Direct Bilirubin AST ALT Alkaline Phosphatase Troponin I High Sens B-Natriuretic Peptide 64 Total Protein Albumin Lipase Urine Color Urine Appearance Urine pH Ur Specific [place] Urine Protein Urine Glucose (UA) Urine Ketones Urine Blood Urine Nitrite Ur Leukocyte Esterase COVID-19 (TAMMIE) Negative COVID-19 [facility] Com See Note 06/06/21 12:49 WBC RBC Hgb Hct MCV MCH MCHC RDW Plt Count MPV Immature Gran % (Auto) Neut % (Auto) Lymph % (Auto) [place] % (Auto) Eos % (Auto) Baso % (Auto) Lymph # (Auto) [place] # (Auto) Eos # (Auto) Baso # (Auto) Abs Immat Gran (auto) Absolute Neuts (auto) Absolute Nucleated RBC Nucleated RBC % (auto) Sodium Potassium Chloride Carbon Dioxide Anion Gap BUN Creatinine Estim Creat Clear Calc Estimated GFR Random Glucose Lactic Acid Calcium Total Bilirubin Direct Bilirubin AST ALT Alkaline Phosphatase Troponin I High Sens B-Natriuretic Peptide Total Protein Albumin Lipase Urine Color YELLOW Urine Appearance CLEAR Urine pH 7.5 Ur Specific [place] 1.010 Urine Protein NEG Urine Glucose (UA) NEG Urine Ketones 5 Urine Blood NEG Urine Nitrite NEG Ur Leukocyte Esterase NEG COVID-19 (TAMMIE) COVID-19 [facility] Com Discharge Plan Discharge Anticipated Discharge Date/Time: 06/07/21 09:41 Patient Disposition: Home, Self-Care Discharge Diagnosis: Asthma exacerbation Referrals: Physician,Unknown [Primary Care Provider] - 1 Week Discharge Medications: New prednisone 10 mg tablet 40 mg PO DAILY Qty: 16 RF: 0 doxycycline hyclate 100 mg tablet 100 mg PO BID Qty: 8 RF: 0 Continued gabapentin 600 mg tablet 1 tab PO TID RF: 0 clonazepam 1 mg tablet 1 tab PO BID RF: 0 tramadol 50 mg tablet 1 tab PO DAILY PRN (Reason: Migraine Headache) RF: 0 mirtazapine 30 mg tablet 1 tab PO BEDTIME RF: 0 amitriptyline 50 mg tablet 2 tab PO BEDTIME RF: 0 acetaminophen 500 mg tablet 1 tab PO BID PRN (Reason: pain) RF: 0 ibuprofen 600 mg tablet 1 tab PO TID PRN (Reason: pain/fever) RF: 0 albuterol sulfate 90 mcg/actuation HFA aerosol inhaler 2 puff PO Q4-6H PRN (Reason: dyspnea) RF: 0 Flovent HFA 110 mcg/actuation HFA aerosol inhaler 1 inh inhalation BID RF: 0 Biktarvy 50-200-25 mg tablet 1 tab PO DAILY RF: 0 diphenhydramine HCl [Banophen] 25 mg capsule 2 cap PO BEDTIME RF: 0 multivitamin Tablet 1 tab PO DAILY RF: 0 Discharge Orders: Discharge Order (Routine); Ordered 06/07/21 Ordered By: Poppy Marcus Diet: advance to usual diet Activity on Discharge: As tolerated Stand Alone Forms: Patient Portal Discharge page Care Plan Goals: complete resolution of asthma symptoms Health Concerns: asthma exacerbation Plan of Treatment: follow-up with primary care provider as needed Assessment: see discharge summary
--- NOTE | 2021-06-07 09:52 | MHC.CM.PN ---
PATIENT IS DISCHARGED HOME - SELF CARE. [facility] SH[facility] V[facility]CHER TO BE COMPLETED. RN AWARE OF PLAN.
[2021-06-07 11:06] VITALS: PULSE 92; O2SAT 97
[2021-06-07 11:14] VITALS: BP 127/85; PULSE 116; RESP 18; TEMP 36.6; O2SAT 94
[2021-06-07] MEDS: Ibuprofen 600 MG TABLET PO (12:03)
--- NOTE | 2021-06-07 12:37 | MHC.CM.PN ---
PATIENT LIVES ALONE. HE SUES NO DME. HE DOES HAVE 31.5 HOURS OF [employer] SERVICES WEEKLY (SUN-SAT) [employer] HELPS WITH MEDICATION SET-UP, CHORES, AND TRANSPORTATION PCP IS DR MATHIS. UPDATE MADE TO CASE MANAGEMENT OFFICE. PATIENT IS NOT VACCINATED AGAINST COVID-19 BUT HAS AN APPOINTMENT TO DO SO THIS COMING SUNDAY. HCP IN CHART AND VERIFIED. CHAVEZ 06/07 ALSO IN CHART. [facility] SHUTT[facility] IS TRANSPORTING PATIENT HOME.
== END 2021-06-07 13:15 | disposition home or self-care (01) ==
LOC: HO.ED 13:51 → HO.EDOVER 15:50 → HO.S3 16:35
PROVIDERS: Admitting Provider Family Medicine; Emergency Provider Emergency Medicine; PCP Internal Medicine; Visit Provider Nurse Practitioner Acute Care
DX: J45.901 Unspecified asthma with (acute) exacerbation (principal); R09.02 Hypoxemia; R00.0 Tachycardia, unspecified; I45.19 Other right bundle-branch block; B19.20 Unspecified viral hepatitis C without hepatic coma; Z21 Asymptomatic human immunodeficiency virus [HIV] infection status; Z20.822 Contact with and (suspected) exposure to COVID-19; Z88.6 Allergy status to analgesic agent; Z88.0 Allergy status to penicillin; Z88.8 Allergy status to other drugs, medicaments and biological substances; J30.2 Other seasonal allergic rhinitis; Z79.52 Long term (current) use of systemic steroids; Z79.899 Other long term (current) drug therapy
CPT/HCPCS: 36415; 71045; 80048; 80076; 81003; 83605; 83690; 83880; 84484; 85025; 87040; 87635; 93005; 94640; 94644; 96372; 96374; 96375; 96376; 99218; 99284; 99285; J1650; J2920; J2930

== ENCOUNTER 2021-06-19 08:49 | Inpatient (IN) | payer OTHER, SELFPAY ==
[2021-06-19] VITALS (7 sets, daily range): BP systolic 109–141; BP diastolic 70–96; PULSE 74–100; RESP 18–21; TEMP 36.4–37.7; O2SAT 92–98; BMI 26.4
--- NOTE | 2021-06-19 | ECG_ITS ---
Test Reason : CHEST PAIN Blood Pressure : / mmHG Vent. Rate : 090 BPM Atrial Rate : 090 BPM P-R Int : 138 ms QRS Dur : 092 ms QT Int : 374 ms P-R-T Axes : 053 039 025 degrees QTc Int : 457 ms Normal sinus rhythm Possible Left atrial enlargement Incomplete right bundle branch block Borderline ECG When compared with ECG of 06-JUN-2021 12:13, No significant change was found Referred By: Generic ED Physician Electronically Signed By:JAVID ARECHIGA MD
--- NOTE | ~2021-06-19 | CT_ITS ---
EXAMINATION: CT CHEST WITH CONTRAST CLINICAL INFORMATION: Cough with high WBC COMPARISON: Chest radiograph 06/19/[address] thorax 04/21/2021. TECHNIQUE: Multidetector volumetric CT imaging of the chest was obtained after the administration of 65 mL of Omnipaque 350 intravenous contrast without immediate adverse reactions. Axial MIP volume rendering provided. Sagittal and coronal reformatted images were obtained. This CT examination was performed using dose optimization techniques as appropriate, variously including the following: *Automated exposure control *Adjustment of mA and/or kV according to patient size (this includes techniques or standardized protocols for targeted exams where dose is matched to indication/reason for exam; i.e. extremities or head) *Use of iterative reconstruction technique DLP: 185 mGy-cm FINDINGS: JAVA LEAD ARCHITECT: The division toll wire chief radiograph shows a focal opacity in the retrocardiac region on the lateral image. LUNGS: A new rounded focus of consolidation in the anterior segment of the right upper lobe medially abutting the anterior and medial pleura adjacent to the anterior mediastinum with mild peripheral patchy opacity is identified. The consolidation measures 3.6 x 3.0 x 3.9 cm (CC by AP by TR dimensions). The consolidation has a thick wall with central liquefaction containing small locules of air consistent with an abscess which measures 2.5 x 2.6 x 2.5 cm in size within the consolidation. There is thickening of the bronchus in the right upper lobe leading to the site of consolidation. Note is made that the right internal mammary artery and vein are directly anterior to the site of consolidation. Since the prior CT study, the consolidation in the right lower lobe has improved although minimal patchy opacity persists at the posterior right lung base with an associated small right pleural effusion. Minimal dependent atelectasis is seen at the left lung base without consolidation. MEDIASTINUM: The mediastinum is normal. No evidence of mediastinal or hilar lymphadenopathy. AXILLA: No lymphadenopathy. UPPER ABDOMEN: The liver is slightly low in attenuation consistent with hepatic steatosis. A small accessory splenule is seen. A tiny left renal nonobstructive calculus measures 0.3 cm in size without change. OSSEOUS STRUCTURES: Multiple biconcave compression deformities are seen in the midthoracic spine, similar to prior. No acute lytic or sclerotic lesions are seen. CT/CT chest w con IMPRESSION: 1. New right upper lobe consolidation measuring 3.6 x 3.9 cm in greatest size with central abscess collection as outlined above. The finding is located the anterior segment of the right lobe abutting the anterior mediastinum and anterior pleura. Access for drainage/aspiration is limited by the overlying internal mammary artery and vein. 2. Improvement in the previously noted right lower lobe opacity with minimal residual opacity and small pleural effusion at the right lung base. This critical result was discussed with Sylwia Stevenson by telephone at 1:33 PM on 06/19/2021 and it was ascertained that the content and urgency of the report was understood at the time of direct communication.
--- NOTE | ~2021-06-19 | XR_ITS ---
EXAMINATION: XR CHEST CLINICAL INFORMATION: Chest pain. COMPARISON: Chest 06/06/2021. TECHNIQUE: Frontal view of the chest was obtained. FINDINGS: The lungs are well-expanded and clear of acute process. The heart size and pulmonary vascularity is normal. No gross bony abnormality seen. XR/XR chest 1V IMPRESSION: Unremarkable chest exam.
--- NOTE | 2021-06-19 09:39 | ED.CHESTPAIN ---
HPI - Chest Pain General Chief Complaint: Chest Pain Stated Complaint: R CP, Cough x2 wks, hx PNA Time Seen by Provider: 06/19/21 09:39 Source: patient and old records reviewed History of Present Illness HPI narrative: Patient with recent hospitalization for bronchitis with mild hypoxia 2 weeks ago. He is was discharged on antibiotics and steroids and states he felt a little better. He finished his course of antibiotics 5 days ago and states since that time he has been feeling worse. Positive cough with brown sputum. Shortness of breath on exertion similar to last presentation. During his last presentation is x-ray was negative. He has a history of HIV with a CD4 count the 800s. Undetectable viral load. Compliant with all medications. He has a remote history of lung abscess as well. Related Data Home Medications Medication Instructions Recorded Confirmed clonazepam 1 mg tablet 1 tab PO BID 04/21/21 06/06/21 gabapentin 600 mg tablet 1 tab PO TID 04/21/21 06/06/21 mirtazapine 30 mg tablet 1 tab PO BEDTIME 04/21/21 06/06/21 tramadol 50 mg tablet 1 tab PO DAILY PRN 04/21/21 06/06/21 acetaminophen 500 mg tablet 1 tab PO BID PRN 06/06/21 06/06/21 albuterol sulfate 90 mcg/actuation 2 puff PO Q4-6H PRN 06/06/21 06/06/21 aerosol inhaler amitriptyline 50 mg tablet 2 tab PO BEDTIME 06/06/21 06/06/21 bictegravir 50 mg-emtricitabine 1 tab PO DAILY 06/06/21 06/06/21 200 mg-tenofovir alafenam 25 mg tablet (Biktarvy) diphenhydramine HCl 25 mg capsule 2 cap PO BEDTIME 06/06/21 06/06/21 (Banophen) fluticasone propionate 110 1 inh INHALATION BID 06/06/21 06/06/21 mcg/actuation HFA aerosol inhaler (Flovent HFA) ibuprofen 600 mg tablet 1 tab PO TID PRN 06/06/21 06/06/21 multivitamin 1 tab PO DAILY 06/06/21 06/06/21 Previous Rx's Medication Instructions Recorded doxycycline hyclate 100 mg tablet 100 mg PO BID #8 tab 06/07/21 prednisone 10 mg tablet 40 mg PO DAILY #16 tab 06/07/21 Allergies Allergy/AdvReac Type Severity Reaction Status Date / Time codeine Allergy Mild RASH Verified 06/06/21 16:07 [From Tylenol-Codeine #3] levofloxacin [From LEVAQUIN] Allergy Mild Rash Verified 06/06/21 16:07 metoclopramide [From Reglan] Allergy Mild RASH Verified 06/06/21 16:07 acetaminophen Allergy Unknown Unknown Verified 06/06/21 16:07 [Tylenol-Codeine #3] Motrin Allergy Unknown REflux Verified 06/06/21 16:07 Penicillins [PENICILLINS] Allergy Unknown RASH Verified 06/06/21 16:07 tramadol [From Ultram] AdvReac Mild N/V Verified 06/06/21 16:07 SEASONAL ALLERGIES Allergy Intermediate EYE Uncoded 06/06/21 16:07 DRAINAGE penicillin Allergy Unknown Unknown Uncoded 06/06/21 16:07 Review of Systems Constitutional: Constitutional: Denies fever(s) Cardiovascular: Cardiovascular: Reports chest pain Comments: Chest pain with cough only. Respiratory: Comments: Dyspnea on exertion. Brown phlegm. Gastrointestinal: Comments: No nausea vomiting diarrhea or abdominal pain Allergic/Immunologic: Comments: History of HIV [facility] Past Medical History Medical History Asthma Depression Hemorrhoids HIV (human immunodeficiency virus infection) Kidney stones Pleuritic chest pain Pneumonia Substance abuse Surgical History H/O hemorrhoidectomy Social History Social History Household Members: None Housing: Apartment Do you presently have visiting nurse or other home services: Yes Alcohol intake: never Patient Tobacco Use Status: Never used Tobacco Use of substances other than those prescribed or required for medical reasons: No Advance Directives: Yes Advance Directives on File: Yes Advance Directives Date on File: 04/25/21 service: No Current occupational status: disabled Physical Exam Vital Signs: Vital Signs: Last Vital Signs Temp 98.4 F 06/19/21 12:50 Pulse 76 06/19/21 12:50 Resp 21 H 06/19/21 12:50 BP 121/80 06/19/21 12:50 Pulse Ox 92 06/19/21 12:50 Body Mass Index 26.4 Const: Other: Awake alert, no acute distress, nontoxic appearing Resp: Other: Rales left base. Fair air entry. Scant expiratory wheezes GI: Other: Soft nontender nondistended Skin: Other: Warm pink and dry Course Course Course Narrative: Pneumonia Bronchitis Lung abscess Asthma exacerbation Prednisone Azithromycin 1:[address] scan shows abscess in the right upper lobe. Interventional Radiology to be consulted. IV ceftriaxone Ativan. Penicillin allergy confirmed. Given risk benefit ratio, a broader spectrum cephalosporin such as ceftriaxone as indicated. 2:31 p.m.. Interventional Radiology reviewed films. They feel abscess is too small for drainage at this time. We will continue IV antibiotics and likely reimage at a later date. MDM - Chest Pain Lab Data Result diagrams: 06/19/21 09:37 06/19/21 09:37 Labs: Lab Results 06/19/21 06/19/21 06/19/21 Range/Units 09:37 09:37 09:37 WBC 16.9 H (4.8-10.8) X10*3/uL RBC 4.11 L (4.60-5.80) X10*6/uL Hgb 13.3 L (14.0-18.0) g/dl Hct 39.3 L (42-52) % MCV 95.6 (80-98) fL MCH 32.4 (27.0-33.0) pg MCHC 33.8 (31.0-36.0) g/dl RDW 13.9 (11.0-16.0) % Plt Count 244 (160-400) X10*3/uL MPV 10.5 (9.4-12.4) fL Immature Gran % (Auto) Cancelled Neut % (Auto) Cancelled Lymph % (Auto) Cancelled [place] % (Auto) Cancelled Eos % (Auto) Cancelled Baso % (Auto) Cancelled Lymph # (Auto) Cancelled [place] # (Auto) Cancelled Eos # (Auto) Cancelled Baso # (Auto) Cancelled Abs Immat Gran (auto) Cancelled Absolute Neuts (auto) Cancelled Absolute Nucleated RBC 0.000 (0.0-0.012) X10*3/uL Nucleated RBC % (auto) 0.0 (0.0-0.2) /100WBC Neutrophils % (Manual) 87 H (45-73) % Band Neutrophils % 2 L (3-5) % Lymphocytes % (Manual) 5 L (20-40) % Monocytes % (Manual) 6 (2-11) % Abs Neuts (Manual) 15.0 H (2.2-7.9) X10*3/uL Lymphocytes # (Manual) 0.8 (0.6-4.8) X10*3/uL Monocytes # (Manual) 1.0 (0.0-1.2) X10*3/uL Platelet Estimate NORMAL (NORMAL) Plt Morphology Comment NORMAL RBC Morphology NORMAL APTT (24.1-38.0) SEC Sodium 138 (135-145) mmol/L Potassium 4.1 (3.3-5.1) mmol/L Chloride 100 (96-108) mmol/L Carbon Dioxide 28 (22-29) mmol/L Anion Gap 14 (12-20) BUN 10 D (9-16) mg/dL Creatinine 0.88 (0.5-1.4) mg/dL Estim Creat Clear Calc 80.5 Estimated GFR > 60 Random Glucose 125 H (60-115) mg/dL Lactic Acid (0.5-2.0) mmol/L Calcium 8.4 D (8.4-10.2) mg/dL Total Bilirubin 0.5 (0.0-1.0) mg/dL Direct Bilirubin 0.2 (0.0-0.5) mg/dL AST 12 (5-37) U/L ALT 16 (0-40) U/L Alkaline Phosphatase 91 (39-117) U/L Troponin I High Sens 4.0 (<3.5-35.0) ng/L Total Protein 6.5 (6.5-8.0) g/dL Albumin 3.4 L (3.5-5.0) g/dL Lipase 4 L (8-78) U/L Coronavirus (PCR) (Negative) Influenza Type A (PCR) (Negative) Influenza Type B (PCR) (Negative) RSV RNA Qual (PCR) (Negative) 06/19/21 06/19/21 06/19/21 Range/Units 10:50 11:00 13:58 WBC (4.8-10.8) X10*3/uL RBC (4.60-5.80) X10*6/uL Hgb (14.0-18.0) g/dl Hct (42-52) % MCV (80-98) fL MCH (27.0-33.0) pg MCHC (31.0-36.0) g/dl RDW (11.0-16.0) % Plt Count (160-400) X10*3/uL MPV (9.4-12.4) fL Immature Gran % (Auto) Neut % (Auto) Lymph % (Auto) [place] % (Auto) Eos % (Auto) Baso % (Auto) Lymph # (Auto) [place] # (Auto) Eos # (Auto) Baso # (Auto) Abs Immat Gran (auto) Absolute Neuts (auto) Absolute Nucleated RBC (0.0-0.012) X10*3/uL Nucleated RBC % (auto) (0.0-0.2) /100WBC Neutrophils % (Manual) (45-73) % Band Neutrophils % (3-5) % Lymphocytes % (Manual) (20-40) % Monocytes % (Manual) (2-11) % Abs Neuts (Manual) (2.2-7.9) X10*3/uL Lymphocytes # (Manual) (0.6-4.8) X10*3/uL Monocytes # (Manual) (0.0-1.2) X10*3/uL Platelet Estimate (NORMAL) Plt Morphology Comment RBC Morphology APTT 33.6 (24.1-38.0) SEC Sodium (135-145) mmol/L Potassium (3.3-5.1) mmol/L Chloride (96-108) mmol/L Carbon Dioxide (22-29) mmol/L Anion Gap (12-20) BUN (9-16) mg/dL Creatinine (0.5-1.4) mg/dL Estim Creat Clear Calc Estimated GFR Random Glucose (60-115) mg/dL Lactic Acid 0.8 (0.5-2.0) mmol/L Calcium (8.4-10.2) mg/dL Total Bilirubin (0.0-1.0) mg/dL Direct Bilirubin (0.0-0.5) mg/dL AST (5-37) U/L ALT (0-40) U/L Alkaline Phosphatase (39-117) U/L Troponin I High Sens (<3.5-35.0) ng/L Total Protein (6.5-8.0) g/dL Albumin (3.5-5.0) g/dL Lipase (8-78) U/L Coronavirus (PCR) NEGATIVE (Negative) Influenza Type A (PCR) NEGATIVE (Negative) Influenza Type B (PCR) NEGATIVE (Negative) RSV RNA Qual (PCR) NEGATIVE (Negative) Discharge Plan Discharge Patient Disposition: Admitted As Inpatient Prescriptions: No Action gabapentin 600 mg tablet 1 tab PO TID RF: 0 clonazepam 1 mg tablet 1 tab PO BID RF: 0 tramadol 50 mg tablet 1 tab PO DAILY PRN (Reason: Migraine Headache) RF: 0 mirtazapine 30 mg tablet 1 tab PO BEDTIME RF: 0 amitriptyline 50 mg tablet 2 tab PO BEDTIME RF: 0 acetaminophen 500 mg tablet 1 tab PO BID PRN (Reason: pain) RF: 0 ibuprofen 600 mg tablet 1 tab PO TID PRN (Reason: pain/fever) RF: 0 albuterol sulfate 90 mcg/actuation HFA aerosol inhaler 2 puff PO Q4-6H PRN (Reason: dyspnea) RF: 0 Flovent HFA 110 mcg/actuation HFA aerosol inhaler 1 inh inhalation BID RF: 0 Biktarvy 50-200-25 mg tablet 1 tab PO DAILY RF: 0 diphenhydramine HCl [Banophen] 25 mg capsule 2 cap PO BEDTIME RF: 0 multivitamin Tablet 1 tab PO DAILY RF: 0 prednisone 10 mg tablet 40 mg PO DAILY Qty: 16 RF: 0 doxycycline hyclate 100 mg tablet 100 mg PO BID Qty: 8 RF: 0
[2021-06-19 09:44] LABS: Hematocrit 39.3 % (42-52); Hemoglobin 13.3 g/dl (14.0-18.0); Mean Corpuscular HGB Conc 33.8 g/dl (31.0-36.0); Mean Corpuscular Hemoglobin 32.4 pg (27.0-33.0); Mean Corpuscular Volume 95.6 fL (80-98); Platelet Count 244 X10*3/uL (160-400); Red Blood Count 4.11 X10*6/uL (4.60-5.80); Red Cell Distribution Width 13.9 % (11.0-16.0)
[2021-06-19 09:49] LABS: WBC ABN SCTR FOR CBC 1
[2021-06-19 10:00] LABS: Alanine Aminotransferase 16 U/L (0-40); Albumin Level 3.4 g/dL (3.5-5.0); Alkaline Phosphatase 91 U/L (39-117); Anion Gap 14 (12-20); Aspartate Amino Transferase 12 U/L (5-37); Bilirubin Direct 0.2 mg/dL (0.0-0.5); Bilirubin Total 0.5 mg/dL (0.0-1.0); Blood Urea Nitrogen 10 mg/dL (9-16); Calcium 8.4 mg/dL (8.4-10.2); Carbon Dioxide 28 mmol/L (22-29); Chloride 100 mmol/L (96-108); Creatinine Clr Calc Pharmacy 80.5; Estimated Glomerular Filt Rate > 60; Glucose Random 125 mg/dL (60-115); Lipase 4 U/L (8-78); Potassium 4.1 mmol/L (3.3-5.1); Sodium 138 mmol/L (135-145); Total Protein 6.5 g/dL (6.5-8.0)
[2021-06-19 10:03] LABS: Band Neutrophils Percent 2 % (3-5); Lymphocytes Percent Manual 5 % (20-40); Monocytes Percent Manual 6 % (2-11); Neutrophils Percent Manual 87 % (45-73)
[2021-06-19 10:04] LABS: Lymphocytes Absolute Manual 0.8 X10*3/uL (0.6-4.8); Platelet Estimate NORMAL (NORMAL); Platelet Morphology Comment NORMAL; RBC Morphology NORMAL; White Blood Count 16.9 X10*3/uL (4.8-10.8)
[2021-06-19 10:05] LABS: Mean Platelet Volume 10.5 fL (9.4-12.4)
[2021-06-19] MEDS: Azithromycin 500 MG TABLET PO (10:42)
[2021-06-19] MEDS: predniSONE 20 MG TABLET 60 MG PO (10:42)
--- NOTE | 2021-06-19 10:47 | PC.NURSE ---
pt alert and oriented, skin appropriate for ethnicity, respirations even and unlabored, ls slightly course on the bases, pt reports right sided chest pain that started yesterday with productive cough yellow brown color
[2021-06-19] MEDS: Albuterol Sulfate (0.083%) 2.5 MG/3 ML VIAL.NEB INHALE (11:10)
[2021-06-19 11:19] LABS: Lactic Acid 0.8 mmol/L (0.5-2.0)
[2021-06-19] MEDS: iohexoL 350 MG/ML 100 ML INFUS..BTL 65 ML IV (11:59)
[2021-06-19 12:57] LABS: Influenza A PCR NEGATIVE (Negative); Influenza B PCR NEGATIVE (Negative); Resp Syncy Virus RNA Qual PCR NEGATIVE (Negative); SARS COV2 PCR INHOUSE NEGATIVE (Negative)
[2021-06-19 14:14] LABS: Partial Thromboplastin Time 33.6 SEC (24.1-38.0)
[2021-06-19] MEDS: cefTRIAXone sodium 1 GM in 0.9 % Sodium Chloride 50 ML IV (15:08)
--- NOTE | 2021-06-19 15:51 | PM.IMHP ---
History of Present Illness Date of Service: 06/19/21 Attending physician on admission: Soraida Amador Chief Complaint: Lung abscess 56-year-old male who was admitted in April for asthma exacerbation and bronchitis presumed-and subsequently went home with doxy and prednisone. He said his coming back because he is having cough with brownish sputum from 1 week and some bad smelling also. He also says that he has some time cough when he tried to eat the food question if there is issue of aspiration silent. Reviewing CTA from April patient had question of early abscess-in right posterior basal lower lobe. See ED physician did the CT today also which shows abscess/consolidation measuring 3.6x3.9 cm and interestingly enough her his previous early abscess area is showing some improvement. He says he has some pain on the right side when he breathes or cough. Denies any new complaint of shortness of breath or abdominal pain or fever or chills or nausea or vomiting Denies any weakness or numbness. Lab imaging EKG personally reviewed and interpreted: WBC count is 16.[address] -chest: Right upper lobe abscess as above. EKG: NSR. ED physician give patient ceftriaxone and azithromycin and admission was given for lung abscess. ED physician also discussed the case on I with IR Dr. Mcwilliams -? Thought to be small abscess , if the does not improve than may be need to be drained. Pmx: Asthma Depression Hemorrhoids HIV (human immunodeficiency virus infection) Kidney stones Pleuritic chest pain Pneumonia Substance abuse ? Hepatitis C also since the viral load in -present . Review of Systems Review of Systems: As above. Yes all other systems are reviewed and are negative [facility] Medical History Asthma Depression Hemorrhoids HIV (human immunodeficiency virus infection) Kidney stones Pleuritic chest pain Pneumonia Substance abuse Pertinent family history: Her his mother had history of lung cancer. Surgical History H/O hemorrhoidectomy Social History Household Members: None Housing: Apartment Do you presently have visiting nurse or other home services: Yes Alcohol intake: never Patient Tobacco Use Status: Never used Tobacco Use of substances other than those prescribed or required for medical reasons: No Advance Directives: Yes Advance Directives on File: Yes Advance Directives Date on File: 04/25/21 service: No Current occupational status: disabled Meds Allergies Allergy/AdvReac Type Severity Reaction Status Date / Time codeine Allergy Mild RASH Verified 06/06/21 16:07 [From Tylenol-Codeine #3] levofloxacin [From LEVAQUIN] Allergy Mild Rash Verified 06/06/21 16:07 metoclopramide [From Reglan] Allergy Mild RASH Verified 06/06/21 16:07 acetaminophen Allergy Unknown Unknown Verified 06/06/21 16:07 [Tylenol-Codeine #3] Motrin Allergy Unknown REflux Verified 06/06/21 16:07 Penicillins [PENICILLINS] Allergy Unknown RASH Verified 06/06/21 16:07 tramadol [From Ultram] AdvReac Mild N/V Verified 06/06/21 16:07 SEASONAL ALLERGIES Allergy Intermediate EYE Uncoded 06/06/21 16:07 DRAINAGE penicillin Allergy Unknown Unknown Uncoded 06/06/21 16:07 Active Medications: Current Medications Albuterol/Ipratropium (Albuterol/Iprat 2.5/0.5mg 3 Ml Ampul.Neb) 3 ml INHALE Q4H MICHAEL Albuterol/Ipratropium (Albuterol/Iprat 2.5/0.5mg 3 Ml Ampul.Neb) 1.5 ml INHALE Q3H PRN PRN Reason: sob Enoxaparin Sodium (Enoxaparin Sodium 40 Mg/0.4 Ml Syringe) 40 mg SUBCUT Q24H COUNTS INCLUDE 234 BEDS AT THE [facility] Clindamycin Phosphate (Cleocin) 600 mg in 50 mls @ 100 mls/hr IV Q6H COUNTS INCLUDE 234 BEDS AT THE [facility] Prednisone (Prednisone 20 Mg Tablet) 40 mg PO DAILY COUNTS INCLUDE 234 BEDS AT THE [facility] Sodium Chloride (0.9 % Sodium Chloride Flush 3 Ml Syringe) 3 ml IVFLUSH QSHIFT COUNTS INCLUDE 234 BEDS AT THE [facility] Home Medications Medication Instructions Recorded Confirmed Last Taken Type clonazepam 1 mg tablet 1 tab PO DAILY 04/21/21 06/19/21 06/05/21 History gabapentin 600 mg tablet 1 tab PO TID 04/21/21 06/19/21 06/05/21 History mirtazapine 30 mg tablet 30 mg PO BEDTIME 04/21/21 06/19/21 06/05/21 History tramadol 50 mg tablet 1 tab PO DAILY 04/21/21 06/19/21 06/05/21 History acetaminophen 500 mg tablet 1 tab PO BID PRN 06/06/21 06/19/21 06/05/21 History albuterol sulfate 90 mcg/actuation 2 puff PO Q4-6H PRN 06/06/21 06/19/21 06/05/21 History aerosol inhaler amitriptyline 50 mg tablet 2 tab PO BEDTIME 06/06/21 06/19/21 06/05/21 History bictegravir 50 mg-emtricitabine 1 tab PO DAILY 06/06/21 06/19/21 06/05/21 History 200 mg-tenofovir alafenam 25 mg tablet (Biktarvy) diphenhydramine HCl 25 mg capsule 2 cap PO BEDTIME 06/06/21 06/19/21 06/05/21 History (Banophen) fluticasone propionate 110 1 inh INHALATION BID 06/06/21 06/19/21 06/05/21 History mcg/actuation HFA aerosol inhaler (Flovent HFA) multivitamin 1 tab PO DAILY 06/06/21 06/19/21 06/05/21 History albuterol sulfate 3 ml INHALATION TID PRN 06/19/21 06/19/21 Unknown History amlodipine 5 mg tablet 1 tab PO DAILY 06/19/21 06/19/21 Unknown History propranolol 120 mg capsule,24 1 cap PO DAILY 06/19/21 06/19/21 Unknown History hr,extended release risperidone 1 mg tablet 1 tab PO BEDTIME 06/19/21 06/19/21 Unknown History Physical Exam Vital Signs and Narrative: Vital Signs: Last Vital Signs Temp 97.6 F 06/19/21 15:01 Pulse 74 06/19/21 15:01 Resp 18 06/19/21 15:01 BP 141/96 H 06/19/21 15:01 Pulse Ox 95 06/19/21 15:01 Body Mass Index 26.4 Physical exam: Appearance: Alert.? Oriented X3.? not in distress.? Eyes: Pupils equal, round and reactive to light.? Sclera nonicteric.? ENT: Pharynx normal.? Moist mucous membranes. cvs: rrr, [id number] , no murmur res: grossly fair air enrty, seems diminshed at right upper lobe, has few rhonchii abd: no rebound or guarding ,nt, bs present. ext pulses present , no cyanosis ,Gait well balanced well coordinated. neuro: axo3 , nonfocal. Results Labs CBC and Chem 7: 06/19/21 09:37 06/19/21 09:37 Labs: Laboratory Results - last 24 hr 06/19/21 06/19/21 06/19/21 09:37 09:37 09:37 MCV 95.6 MCH 32.4 MCHC 33.8 RDW 13.9 Plt Count 244 MPV 10.5 Immature Gran % (Auto) Cancelled Neut % (Auto) Cancelled Lymph % (Auto) Cancelled Edgar % (Auto) Cancelled Eos % (Auto) Cancelled Baso % (Auto) Cancelled Lymph # (Auto) Cancelled Edgar # (Auto) Cancelled Eos # (Auto) Cancelled Baso # (Auto) Cancelled Abs Immat Gran (auto) Cancelled Absolute Neuts (auto) Cancelled Absolute Nucleated RBC 0.000 Nucleated RBC % (auto) 0.0 Neutrophils % (Manual) 87 H Band Neutrophils % 2 L Lymphocytes % (Manual) 5 L Monocytes % (Manual) 6 Abs Neuts (Manual) 15.0 H Lymphocytes # (Manual) 0.8 Monocytes # (Manual) 1.0 Platelet Estimate NORMAL Plt Morphology Comment NORMAL RBC Morphology NORMAL APTT Anion Gap 14 Estim Creat Clear Calc 80.5 Estimated GFR > 60 Random Glucose 125 H Lactic Acid Calcium 8.4 D Total Bilirubin 0.5 Direct Bilirubin 0.2 AST 12 ALT 16 Alkaline Phosphatase 91 Troponin I High Sens 4.0 Total Protein 6.5 Albumin 3.4 L Lipase 4 L Coronavirus (PCR) Influenza Type A (PCR) Influenza Type B (PCR) RSV RNA Qual (PCR) 06/19/21 06/19/21 06/19/21 10:50 11:00 13:58 MCV MCH MCHC RDW Plt Count MPV Immature Gran % (Auto) Neut % (Auto) Lymph % (Auto) Edgar % (Auto) Eos % (Auto) Baso % (Auto) Lymph # (Auto) Edgar # (Auto) Eos # (Auto) Baso # (Auto) Abs Immat Gran (auto) Absolute Neuts (auto) Absolute Nucleated RBC Nucleated RBC % (auto) Neutrophils % (Manual) Band Neutrophils % Lymphocytes % (Manual) Monocytes % (Manual) Abs Neuts (Manual) Lymphocytes # (Manual) Monocytes # (Manual) Platelet Estimate Plt Morphology Comment RBC Morphology APTT 33.6 Anion Gap Estim Creat Clear Calc Estimated GFR Random Glucose Lactic Acid 0.8 Calcium Total Bilirubin Direct Bilirubin AST ALT Alkaline Phosphatase Troponin I High Sens Total Protein Albumin Lipase Coronavirus (PCR) NEGATIVE Influenza Type A (PCR) NEGATIVE Influenza Type B (PCR) NEGATIVE RSV RNA Qual (PCR) NEGATIVE Imaging Radiologist's Impressions: Impressions Chest X-Ray 06/19/21 10:38 IMPRESSION: Unremarkable chest exam. Chest CT 06/19/21 10:42 IMPRESSION: 1. New right upper lobe consolidation measuring 3.6 x 3.9 cm in greatest size with central abscess collection as outlined above. The finding is located the anterior segment of the right lobe abutting the anterior mediastinum and anterior pleura. Access for drainage/aspiration is limited by the overlying internal mammary artery and vein. 2. Improvement in the previously noted right lower lobe opacity with minimal residual opacity and small pleural effusion at the right lung base. This critical result was discussed with Sylwia Stevenson by telephone at 1:33 PM on 06/19/2021 and it was ascertained that the content and urgency of the report was understood at the time of direct communication. Assessment and Plan (1) Abscess of left lung with pneumonia: Qualifiers: Lung location: upper lobe of lung Qualified Code(s): J85.1 - Abscess of lung with pneumonia Status: Acute (2) Abscess of lower lobe of right lung with pneumonia: Status: Acute (3) HIV (human immunodeficiency virus infection): Qualifiers: HIV symptom status: unspecified Qualified Code(s): B20 - Human immunodeficiency virus [HIV] disease Status: Acute 1. Lung abscess/sepsis: Probably related to aspiration? NPO, swallow evaluation Sepsis exam completed, blood cultures sent, lactic acid normal, patient is currently does not have mom is short of breath, only has some pain when he coughs or breathes in the right-sided. Started on IV clinda since allergic to penicillin, cough medication May need abscess drainage if becomes symptomatic or or does not improve. 2. Asthma: Seems stable Continue nebs, p.o. steroids 3.hiv:?CD4 count the 800s.? Undetectable viral load in 04/30 he follows up with hiv in [place] Will continue HIV medication Also has hip hepatitis C viral load positive in April Considering lung abscess and hepatitis C and HIV we will consider adding id evaluation 4. Depression//anxiety: Continue Remeron and psych meds. dvt prophylax: s/c lovenox Above management discussed with the patient in detail length, including lung abscess question of aspiration as well as use of antibiotics and code status-patient understand and in agreement with the plan, patient full code. Quality Stroke Does the patient have a stroke diagnosis?: No VTE Prior VTE?: No VTE Risk Level:: Medical - moderate - high VTE Device Contraindication: N/A - Device Ordered VTE Drug Contraindication: N/A - Med Ordered
[2021-06-19] MEDS: Clindamycin Phosphate/D5W 600 MG/50 ML PIGGYBACK 100 MG IV ×2 (16:00→21:07)
[2021-06-19] MEDS: Enoxaparin Sodium 40 MG/0.4 ML SYRINGE SUBCUT (16:00)
[2021-06-19 16:33] LABS: Amphetamine Screen Urine Not Detected (Not Detect); Barbiturates, Urine Not Detected (Not Detect); Benzodiazepines Screen Urine Not Detected (Not Detect); Cannabinoid Screen Urine Not Detected (Not Detect); Cocaine Screen Urine POSITIVE (Not Detect); Fentanyl, urine POSITIVE (Not Detect); Opiate Screen Urine POSITIVE (Not Detect); Phencyclidine Screen Urine Not Detected (Not Detect)
[2021-06-19] MEDS: 0.9 % Sodium Chloride Flush 3 ML SYRINGE IVFLUSH (16:36)
--- NOTE | 2021-06-19 20:15 | PC.NURSE ---
PT MEDICATED PER EMAR. PT REQUESTING PAIN MEDS.
[2021-06-19] MEDS: risperiDONE 1 MG TABLET PO (20:19)
[2021-06-19] MEDS: Gabapentin 600 MG TABLET PO (20:19)
[2021-06-19] MEDS: oxyCODONE HCl Immed Release 5 MG TABLET PO ×2 (20:19→23:56)
[2021-06-19] MEDS: diphenhydrAMINE HCL 25 MG TABLET 50 MG PO (20:19)
--- NOTE | 2021-06-19 21:00 | PC.NURSE ---
D5NS INFUSING ON PUMP AND LIDOCAINE PATCH APPLIED TO CHEST WALL FOR PAIN. PT REMAINS ALERT, SPEAKING IN FULL COMPLETE SENTENCES. WILL CONTINUE TO MONITOR PT.
[2021-06-19] MEDS: Dextrose 5 % and 0.9 % NaCl 1,000 ML 80 ML IVCONT (21:13)
[2021-06-19] MEDS: Lidocaine 4 % Patch ADH..PATCH 1 PATCH TRANSDERMA (21:21)
[2021-06-19] MEDS: Albuterol/Iprat 2.5/0.5MG 3 ML AMPUL.NEB INHALE (21:35)
--- NOTE | 2021-06-19 23:45 | PC.NURSE ---
PT RATING PAIN 10/10 TO CHEST AREA. HOSPITALIST AWARE AND PT MEDICATED FOR PAIN PER EMAR. WILL CONTINUE TO MONITOR PT.
[2021-06-19] MEDS: Ketorolac Tromethamine 15 MG/ML VIAL IVPUSH (23:57)
[2021-06-20] VITALS (12 sets, daily range): BP systolic 121–151; BP diastolic 61–94; PULSE 64–78; RESP 18–20; TEMP 36.6–37; O2SAT 91–97; BMI 25.2
[2021-06-20] MEDS: 0.9 % Sodium Chloride Flush 3 ML SYRINGE IVFLUSH ×3 (00:50→15:53)
--- NOTE | 2021-06-20 01:33 | PC.NURSE ---
PT SLEEPING, WAKES TO VOICE, RESPIRATIONS EASY, N/L. PT AWAITING FOR ROOM ASSIGNMENT. WILL CONTINUE TO MONITOR PT.
--- NOTE | 2021-06-20 03:39 | PC.NURSE ---
PT UP TO RESTROOM W/O DIFFICULTY, SITE INTACT.
[2021-06-20] MEDS: oxyCODONE HCl Immed Release 5 MG TABLET PO ×4 (04:26→20:19)
[2021-06-20] MEDS: Clindamycin Phosphate/D5W 600 MG/50 ML PIGGYBACK 100 MG IV ×4 (04:26→22:39)
--- NOTE | 2021-06-20 04:30 | PC.NURSE ---
PT UP TO RESTROOM, PT MEDICATED FOR PAIN AND FLUIDS UP RUNNING ON PUMP. PT RATING LUNG PAIN 10/10. PT AWAITING FOR ROOM ASSIGNMENT IN THE AM. WILL CONTINUE TO MONITOR PT.
--- NOTE | 2021-06-20 05:17 | PC.NURSE ---
PT REPOSITIONED AND 700ML OF CLEAR YELLOW URINE EMPTIED FROM DAILY BAG. PT IN NAD. RESPIRATIONS EASY, N/L. WILL CONTINUE TO MONITOR PT.
--- NOTE | 2021-06-20 06:23 | PC.NURSE ---
REPORT TO ANGY, RN. PT TO FLOOR ON MONITOR IN NAD.
[2021-06-20] MEDS: Albuterol/Iprat 2.5/0.5MG 3 ML AMPUL.NEB INHALE ×4 (07:27→19:36)
[2021-06-20 08:04] LABS: Hematocrit 37.3 % (42-52); Hemoglobin 12.5 g/dl (14.0-18.0); Mean Corpuscular HGB Conc 33.5 g/dl (31.0-36.0); Mean Corpuscular Volume 95.4 fL (80-98); Mean Platelet Volume 10.6 fL (9.4-12.4); Platelet Count 241 X10*3/uL (160-400); Red Blood Count 3.91 X10*6/uL (4.60-5.80); Red Cell Distribution Width 13.6 % (11.0-16.0); White Blood Count 12.8 X10*3/uL (4.8-10.8)
[2021-06-20 08:27] LABS: Anion Gap 10 (12-20); Blood Urea Nitrogen 12 mg/dL (9-16); Calcium 8.2 mg/dL (8.4-10.2); Carbon Dioxide 31 mmol/L (22-29); Chloride 102 mmol/L (96-108); Creatinine Clr Calc Pharmacy 86.4; Estimated Glomerular Filt Rate > 60; Glucose Random 91 mg/dL (60-115); Sodium 139 mmol/L (135-145)
[2021-06-20] MEDS: predniSONE 20 MG TABLET 40 MG PO (09:29)
[2021-06-20] MEDS: clonazePAM 1 MG TABLET PO (09:30)
[2021-06-20] MEDS: traMADoL HCL 50 MG TABLET PO (09:30)
[2021-06-20] MEDS: Propranolol HCL LA 60 MG CAP.SA.24H 120 MG PO (09:31)
[2021-06-20] MEDS: Multivitamin TABLET 1 TAB PO (09:32)
[2021-06-20] MEDS: Benzonatate 100 MG CAPSULE PO (09:32)
[2021-06-20] MEDS: amLODIPine Besylate 5 MG TABLET PO (09:33)
[2021-06-20] MEDS: Dextrose 5 % and 0.9 % NaCl 1,000 ML 80 ML IVCONT ×2 (09:33→22:41)
[2021-06-20] MEDS: Gabapentin 600 MG TABLET PO ×3 (09:33→20:15)
[2021-06-20] MEDS: Lidocaine 4 % Patch ADH..PATCH 1 PATCH TRANSDERMA (09:34)
[2021-06-20] MEDS: guaiFENesin 100 MG/5 ML LIQUID PO (09:34)
--- NOTE | 2021-06-20 12:06 | MHC.CM.PN ---
PT LIVES ALONE AND HAS DAILY PARER SERVICES. PT DENIES USING DME OR HAVING A VISITING NURSE. PT REPORTS HIS PCP IS DR. MATHIS AT THE [facility]. PT CONFIRMS THE HCP ON FILE IS CURRENT CURRENT DC PLAN IS HOME WITH RESUMPTION OF PARER SERVICES PT WILL NEED THE SHUTTLE HOME
--- NOTE | 2021-06-20 12:14 | P.PNIM_ITS ---
Subjective Subjective Date of Service: 06/20/21 Interval History: Lung abscess Review of Systems He still has cough with brownish sputum and some pleurisy when he coughs Denies any abdominal pain or nausea vomiting or fever chills or new weakness or numbness. Physical Exam Vital Signs: Vital Signs: Last Vital Signs Temp 97.8 F 06/20/21 11:13 Pulse 73 06/20/21 11:13 Resp 18 06/20/21 11:13 BP 126/83 06/20/21 11:13 Pulse Ox 92 06/20/21 11:13 Body Mass Index 25.2 Appearance: Alert.? Oriented X3.? not in distress.? Eyes: Pupils equal, round and reactive to light.? Sclera nonicteric.? ENT: Pharynx normal.? Moist mucous membranes. cvs: rrr, [id number] , no murmur res: air entry seems similar as yesterday- seems diminshed at right upper lobe, has few rhonchii abd: no rebound or guarding ,nt, bs present. ext pulses present , no cyanosis ,Gait well balanced well coordinated. neuro: axo3 , nonfocal. Objective Data Active Medications Albuterol/Ipratropium (Albuterol/Iprat 2.5/0.5mg 3 Ml Ampul.Neb) 3 ml INHALE RQ4H MICHAEL Last Admin: 06/20/21 11:37 Dose: 3 ml Documented by: ANITHA Albuterol/Ipratropium (Albuterol/Iprat 2.5/0.5mg 3 Ml Ampul.Neb) 1.5 ml INHALE Q3H PRN PRN Reason: sob Amitriptyline HCl (Amitriptyline Hcl 50 Mg Tablet) 100 mg PO BEDTIME MICHAEL Last Admin: 06/19/21 20:32 Dose: Not Given Documented by: LADARIUS Non-Admin Reason: Med Not Available Amlodipine Besylate (Amlodipine Besylate 5 Mg Tablet) 5 mg PO DAILY MICHAEL; Prot ocol Last Admin: 06/20/21 09:33 Dose: 5 mg Documented by: RADHA Benzonatate (Benzonatate 100 Mg Capsule) 100 mg PO TID PRN PRN Reason: Cough Last Admin: 06/20/21 09:32 Dose: 100 mg Documented by: RADHA Bictegravir/Emtricitabine/Tenofovir (Bictegrav/Emtricit/Tenofov Ala 1 Tab Tablet) 1 tab PO DAILY [facility] Last Admin: 06/20/21 09:33 Dose: 1 tab Documented by: RADHA Clonazepam (Clonazepam 1 Mg Tablet) 1 mg PO DAILY [facility] Last Admin: 06/20/21 09:30 Dose: 1 mg Documented by: RADHA Diphenhydramine HCl (Diphenhydramine Hcl 25 Mg Tablet) 50 mg PO BEDTIME [facility] Last Admin: 06/19/21 20:19 Dose: 50 mg Documented by: LADARIUS Enoxaparin Sodium (Enoxaparin Sodium 40 Mg/0.4 Ml Syringe) 40 mg SUBCUT Q24H [facility] Last Admin: 06/19/21 16:00 Dose: 40 mg Documented by: CHAS Fluticasone Propionate (Fluticasone Propionate 100 Mcg Blst.W.Dev) 1 puff INHALE RBID [facility] Last Admin: 06/20/21 07:30 Dose: Not Given Documented by: ANITHA Non-Admin Reason: Med Not Available Gabapentin (Gabapentin 600 Mg Tablet) 600 mg PO TID [facility] Last Admin: 06/20/21 09:33 Dose: 600 mg Documented by: RADHA Guaifenesin (Guaifenesin 100 Mg/5 Ml Liquid) 5 ml PO Q4H PRN PRN Reason: Cough Last Admin: 06/20/21 09:34 Dose: 5 ml Documented by: RADHA Clindamycin Phosphate (Cleocin) 600 mg in 50 mls @ 100 mls/hr IV Q6H [facility] Last Infusion: 06/20/21 10:35 Dose: 0 mls/hr Documented by: RADHA Dextrose/Sodium Chloride (D5ns) 1,000 mls @ 80 mls/hr IVCONT .[id number] [facility] Last Admin: 06/20/21 09:33 Dose: 80 mls/hr Documented by: RADHA Ketorolac Tromethamine (Ketorolac Tromethamine 15 Mg/Ml Vial) 15 mg IVPUSH Q6H PRN PRN Reason: Pain, Mild (Pain Scale 1-3) Last Admin: 06/19/21 23:57 Dose: 15 mg Documented by: LADARIUS Lidocaine (Lidocaine 4 % Patch Adh..Patch) 1 patch TRANSDERMA DAILY [facility]; Protocol Last Admin: 06/20/21 09:34 Dose: 1 patch Documented by: RADHA Mirtazapine (Mirtazapine 30 Mg Tablet) 30 mg PO BEDTIME [facility] Last Admin: 06/19/21 20:31 Dose: Not Given Documented by: LADARIUS Non-Admin Reason: Med Not Available Multivitamins/Vitamin C (Multivitamin Tablet) 1 tab PO DAILY [facility] Last Admin: 06/20/21 09:32 Dose: 1 tab Documented by: RADHA Omeprazole (Omeprazole 20 Mg Capsule.Dr) 20 mg PO BEDTIME MICHAEL Last Admin: 06/19/21 20:35 Dose: Not Given Documented by: LADARIUS Non-Admin Reason: Med Not Available Oxycodone HCl (Oxycodone Hcl Immed Release 5 Mg Tablet) 5 mg PO Q4H PRN PRN Reason: Pain, Severe (Pain Scale 7-10) Last Admin: 06/20/21 09:32 Dose: 5 mg Documented by: RADHA Prednisone (Prednisone 20 Mg Tablet) 40 mg PO DAILY [facility] Last Admin: 06/20/21 09:29 Dose: 40 mg Documented by: RADHA Propranolol HCl (Propranolol Hcl La 60 Mg Cap.Sa.24h) 120 mg PO DAILY [facility]; Protocol Last Admin: 06/20/21 09:31 Dose: 120 mg Documented by: RADHA Risperidone (Risperidone 1 Mg Tablet) 1 mg PO BEDTIME [facility] Last Admin: 06/19/21 20:19 Dose: 1 mg Documented by: LADARIUS Sodium Chloride (0.9 % Sodium Chloride Flush 3 Ml Syringe) [facility] Last Admin: 06/20/21 09:29 Dose: 3 ml Documented by: RADHA Tramadol HCl (Tramadol Hcl 50 Mg Tablet) 50 mg PO DAILY [facility] Last Admin: 06/20/21 09:30 Dose: 50 mg Documented by: RADHA Labs CBC & Chem 7: 06/20/21 07:54 06/20/21 07:54 Labs: Laboratory Results - last 24 hr 06/19/21 06/19/21 06/19/21 10:50 13:58 16:11 MCV MCH MCHC RDW Plt Count MPV Absolute Nucleated RBC Nucleated RBC % (auto) APTT 33.6 Anion Gap Estim Creat Clear Calc Estimated GFR Random Glucose Calcium Urine Opiates Screen POSITIVE H Urine Fentanyl Screen POSITIVE H Ur Barbiturates Screen Not Detected Ur Phencyclidine Scrn Not Detected Ur Amphetamines Screen Not Detected U Benzodiazepines Scrn Not Detected Urine Cocaine Screen POSITIVE H U Marijuana (THC) Screen Not Detected Coronavirus (PCR) NEGATIVE Influenza Type A (PCR) NEGATIVE Influenza Type B (PCR) NEGATIVE RSV RNA Qual (PCR) NEGATIVE 06/20/21 06/20/21 07:54 07:54 MCV 95.4 MCH 32.0 MCHC 33.5 RDW 13.6 Plt Count 241 MPV 10.6 Absolute Nucleated RBC 0.000 Nucleated RBC % (auto) 0.0 APTT Anion Gap 10 L Estim Creat Clear Calc 86.4 Estimated GFR > 60 Random Glucose 91 Calcium 8.2 L Urine Opiates Screen Urine Fentanyl Screen Ur Barbiturates Screen Ur Phencyclidine Scrn Ur Amphetamines Screen U Benzodiazepines Scrn Urine Cocaine Screen U Marijuana (THC) Screen Coronavirus (PCR) Influenza Type A (PCR) Influenza Type B (PCR) RSV RNA Qual (PCR) Assessment and Plan (1) Abscess of left lung with pneumonia: Status: Acute Assessment and Plan: 1. Lung abscess/sepsis: Probably related to aspiration? NPO, swallow evaluation blood cultures pending, lactic acid normal, patient is currently does not have mom is short of breath, only has some pain when he coughs or breathes in the right-sided. Started on IV clinda day2 since allergic to penicillin, cough medication May need abscess drainage if becomes symptomatic or or does not improve. 2. Asthma:? Seems stable Continue nebs, p.o. steroids 3.hiv:?CD4 count the 800s.? Undetectable viral load in 04/30. he follows up with hiv in [place] Will continue HIV medication Also has hip hepatitis C viral load positive in April Considering lung abscess and hepatitis C and HIV we will consider adding id evaluation 4. Depression/anxiety:? Continue Remeron and psych meds. ?dvt prophylax: s/c lovenox Quality Stroke Does the patient have a stroke diagnosis?: No VTE Prior VTE?: No VTE Risk Level:: Medical - moderate - high VTE Device Contraindication: N/A - Device Ordered VTE Drug Contraindication: N/A - Med Ordered
--- NOTE | 2021-06-20 12:39 | MHC.SL.SWA ---
Speech Pathologist Impression: Risk of Aspiration Risk of Aspiration Due to: History of Pneumonia Dysphasia Diet Status: Upgrade Liquid Consistency and Strategies for Safe Swallow: Liquid Intake Recommendation: Thin Liquid Intake Strategies: Small Sips Solid Food Consistency: Dietary Recommendations: Regular Additional Modifications to Solid Foods: No overt s/s of aspiration with PO trials. Patient is able to feed himself. Recommend REGULAR solids and THIN liquids (by individual cup sip) with pills WHOLE in PUREE. Given dx of PNA, recommend aspiration precautions, and intermittent supervision to ensure tolerance and monitor for any overt s/s of aspiration. COMMODITIES TRADER will follow up tomorrow morning to ensure tolerance of unmodified diet. Oral Medication Intake: Whole with Puree Compensatory Strategies and Precautions to be Taken for Safe Swallow: Sitting Upright (90 deg) No Straw Small Bites and Sips Alternate Liquids/Solids Rate of Ingestion Change Supervision While Eating and Drinking for Safe Swallow: Intermittent Supervision Swallowing Recommended Treatments: Compens. Strategy Educat. Recommendation for Speech: Inpatient Speech Therapy Cylinder Block Mechanic Clinican/Clinical Fellow: No Supervisory Statement: I have reviewed and agree with the student/clinical fellow's documentation: N/A Speech Language Pathologist: Laura Hill M.A., CCC-COMMODITIES TRADER
[2021-06-20] MEDS: Enoxaparin Sodium 40 MG/0.4 ML SYRINGE SUBCUT (15:52)
[2021-06-20] MEDS: Fluticasone Propionate 100 MCG BLST.W.DEV 1 PUFF INHALE (19:36)
[2021-06-20] MEDS: Amitriptyline HCl 50 MG TABLET 100 MG PO (20:15)
[2021-06-20] MEDS: Mirtazapine 30 MG TABLET PO (20:15)
[2021-06-20] MEDS: risperiDONE 1 MG TABLET PO (20:15)
[2021-06-20] MEDS: diphenhydrAMINE HCL 25 MG TABLET 50 MG PO (20:15)
[2021-06-20] MEDS: Omeprazole 20 MG CAPSULE.DR PO (20:15)
--- NOTE | 2021-06-20 22:01 | P.CNID_ITS ---
History of Present Illness Data of Consult Service Date: 06/20/21 Requesting physician: Soraida Amador Primary Care Provider: [facility] Reason for consult: lung abscess He presents with cough productive of brown sputum. He has had worsening symptoms since diagnosis of bronchitis and Prednisone and Doxycycline given two weeks ago. He has no fever or chills now. He has HIV with preserved immune function with CD4 count of 875 and viral load undetectable in April 2021. He has RUL 3.6 x 3.9 cm abscess He has been on low dose oxygen Review of Systems Review of Systems: Yes all other systems are reviewed and are negative [facility] Past Medical History Medical History Asthma Depression Hemorrhoids HIV (human immunodeficiency virus infection) Kidney stones Pleuritic chest pain Pneumonia Substance abuse Family History Family history: reviewed and not pertinent Surgical History Surgical History H/O hemorrhoidectomy Social History Social History Household Members: None Housing: Apartment Do you presently have visiting nurse or other home services: Yes (supervisor stripping and vna) Alcohol intake: never Patient Tobacco Use Status: Never used Tobacco Second Hand Smoke Exposure: No Advance Directives Date on File: 04/25/21 service: No Current occupational status: disabled Meds Allergies Allergy/AdvReac Type Severity Reaction Status Date / Time codeine Allergy Mild RASH Verified 07/05/21 21:46 [From Tylenol-Codeine #3] levofloxacin [From LEVAQUIN] Allergy Mild Rash Verified 07/05/21 21:46 metoclopramide [From Reglan] Allergy Mild RASH Verified 07/05/21 21:46 acetaminophen Allergy Unknown Unknown Verified 07/05/21 21:46 [Tylenol-Codeine #3] Motrin Allergy Unknown REflux Verified 07/05/21 21:46 Penicillins [PENICILLINS] Allergy Unknown RASH Verified 07/05/21 21:46 tramadol [From Ultram] AdvReac Mild N/V Verified 07/05/21 21:46 SEASONAL ALLERGIES Allergy Intermediate EYE Uncoded 06/06/21 16:07 DRAINAGE penicillin Allergy Unknown Unknown Uncoded 06/06/21 16:07 Active Medications: Current Medications Albuterol/Ipratropium (Albuterol/Iprat 2.5/0.5mg 3 Ml Ampul.Neb) 3 ml INHALE RQ4H [facility] Last Admin: 06/20/21 19:36 Dose: 3 ml Documented by: Albuterol/Ipratropium (Albuterol/Iprat 2.5/0.5mg 3 Ml Ampul.Neb) 1.5 ml INHALE Q3H PRN PRN Reason: sob Amitriptyline HCl (Amitriptyline Hcl 50 Mg Tablet) 100 mg PO BEDTIME [facility] Last Admin: 06/20/21 20:15 Dose: 100 mg Documented by: Amlodipine Besylate (Amlodipine Besylate 5 Mg Tablet) 5 mg PO DAILY [facility]; Protocol Last Admin: 06/20/21 09:33 Dose: 5 mg Documented by: Benzonatate (Benzonatate 100 Mg Capsule) 100 mg PO TID PRN PRN Reason: Cough Last Admin: 06/20/21 09:32 Dose: 100 mg Documented by: Bictegravir/Emtricitabine/Tenofovir (Bictegrav/Emtricit/Tenofov Ala 1 Tab Tablet) 1 tab PO DAILY [facility] Last Admin: 06/20/21 09:33 Dose: 1 tab Documented by: Diphenhydramine HCl (Diphenhydramine Hcl 25 Mg Tablet) 50 mg PO BEDTIME [facility] Last Admin: 06/20/21 20:15 Dose: 50 mg Documented by: Enoxaparin Sodium (Enoxaparin Sodium 40 Mg/0.4 Ml Syringe) 40 mg SUBCUT Q24H [facility] Last Admin: 06/20/21 15:52 Dose: 40 mg Documented by: Fluticasone Propionate (Fluticasone Propionate 100 Mcg Blst.W.Dev) 1 puff INHALE RBID [facility] Last Admin: 06/20/21 19:36 Dose: 1 puff Documented by: Gabapentin (Gabapentin 600 Mg Tablet) 600 mg PO TID [facility] Last Admin: 06/20/21 20:15 Dose: 600 mg Documented by: Guaifenesin (Guaifenesin 100 Mg/5 Ml Liquid) 5 ml PO Q4H PRN PRN Reason: Cough Last Admin: 06/20/21 09:34 Dose: 5 ml Documented by: Clindamycin Phosphate (Cleocin) 600 mg in 50 mls @ 100 mls/hr IV Q6H [facility] Last Infusion: 06/20/21 17:03 Dose: Infused Documented by: Dextrose/Sodium Chloride (D5ns) 1,000 mls @ 80 mls/hr IVCONT .[id number] [facility] Last Admin: 06/20/21 09:33 Dose: 80 mls/hr Documented by: Ketorolac Tromethamine (Ketorolac Tromethamine 15 Mg/Ml Vial) 15 mg IVPUSH Q6H PRN PRN Reason: Pain, Mild (Pain Scale 1-3) Last Admin: 06/19/21 23:57 Dose: 15 mg Documented by: Lidocaine (Lidocaine 4 % Patch Adh..Patch) 1 patch TRANSDERMA DAILY [facility]; Prot ocol Last Admin: 06/20/21 09:34 Dose: 1 patch Documented by: Mirtazapine (Mirtazapine 30 Mg Tablet) 30 mg PO BEDTIME [facility] Last Admin: 06/20/21 20:15 Dose: 30 mg Documented by: Multivitamins/Vitamin C (Multivitamin Tablet) 1 tab PO DAILY [facility] Last Admin: 06/20/21 09:32 Dose: 1 tab Documented by: Omeprazole (Omeprazole 20 Mg Capsule.Dr) 20 mg PO BEDTIME [facility] Last Admin: 06/20/21 20:15 Dose: 20 mg Documented by: Oxycodone HCl (Oxycodone Hcl Immed Release 5 Mg Tablet) 5 mg PO Q4H PRN PRN Reason: Pain, Severe (Pain Scale 7-10) Last Admin: 06/20/21 20:19 Dose: 5 mg Documented by: Prednisone (Prednisone 20 Mg Tablet) 40 mg PO DAILY [facility] Last Admin: 06/20/21 09:29 Dose: 40 mg Documented by: Propranolol HCl (Propranolol Hcl La 60 Mg Cap.Sa.24h) 120 mg PO DAILY [facility]; Protocol Last Admin: 06/20/21 09:31 Dose: 120 mg Documented by: Risperidone (Risperidone 1 Mg Tablet) 1 mg PO BEDTIME [facility] Last Admin: 06/20/21 20:15 Dose: 1 mg Documented by: Sodium Chloride (0.9 % Sodium Chloride Flush 3 Ml Syringe) 3 ml IVFLUSH QSHIFT [facility] Last Admin: 06/20/21 15:53 Dose: 3 ml Documented by: Tramadol HCl (Tramadol Hcl 50 Mg Tablet) 50 mg PO DAILY [facility] Last Admin: 06/20/21 09:30 Dose: 50 mg Documented by: Home Medications Medication Instructions Recorded Confirmed Last Taken Type clonazepam 1 mg tablet 1 tab PO DAILY 04/21/21 07/06/21 06/05/21 History gabapentin 600 mg tablet 1 tab PO TID 04/21/21 07/06/21 06/05/21 History mirtazapine 30 mg tablet 30 mg PO BEDTIME 04/21/21 07/06/21 06/05/21 History tramadol 50 mg tablet 1 tab PO DAILY 04/21/21 07/06/21 06/05/21 History acetaminophen 500 mg tablet 1 tab PO BID PRN 06/06/21 07/06/21 06/05/21 History bictegravir 50 mg-emtricitabine 1 tab PO DAILY 06/06/21 07/06/21 06/05/21 History 200 mg-tenofovir alafenam 25 mg tablet (Biktarvy) albuterol sulfate 3 ml INHALATION TID PRN 06/19/21 07/06/21 Unknown History amlodipine 5 mg tablet 1 tab PO DAILY 06/19/21 07/06/21 Unknown History propranolol 120 mg capsule,24 1 cap PO DAILY 06/19/21 07/06/21 Unknown History hr,extended release risperidone 1 mg tablet 1 tab PO BEDTIME 06/19/21 07/06/21 Unknown History Physical Exam Vital Signs: Vital Signs: Last Vital Signs Temp 97.8 F 06/20/21 19:01 Pulse 78 06/20/21 19:38 Resp 20 06/20/21 19:01 BP 149/87 H 06/20/21 19:01 Pulse Ox 93 06/20/21 19:01 Body Mass Index 25.2 Const: General: cooperative HENMT: Head: Yes normal to inspection Mouth: Normal oral and palatal mucosa present Eyes: General: appearance normal, both eyes and all related structures Resp: Effort & Inspection: normal respiratory effort Cardio: Rate: regular rate Rhythm: regular rhythm GI: Palpation (GI): Soft to palpation and nontender Skin: General skin exam: no rashes or lesions noted Results Labs CBC & Chem 7: 06/20/21 07:54 06/20/21 07:54 Labs: Short CBC 06/20/21 Range/Units 07:54 WBC 12.8 H (4.8-10.8) X10*3/uL Hgb 12.5 L (14.0-18.0) g/dl Hct 37.3 L (42-52) % Plt Count 241 (160-400) X10*3/uL BMP 06/20/21 07:54 Sodium 139 Potassium 4.0 Chloride 102 Carbon Dioxide 31 H BUN 12 Creatinine 0.82 Calcium 8.2 L Microbiology Microbiology Results: Microbiology 06/19/21 12:48 Blood - Venous Blood Culture - Preliminary No growth after 24 hours. 06/19/21 11:00 Blood - Venous Blood Culture - Preliminary No growth after 24 hours. Assessment and Plan (1) Abscess of left lung with pneumonia: Qualifiers: Lung location: upper lobe of lung Qualified Code(s): J85.1 - Abscess of lung with pneumonia Status: Acute He has moderate sized abscess He is receiving Clindamycin Would continue Clindamycin and Ceftriaxone Observe with repeat CT in one week after first and if larger than 3 cm drain IR or Thoracic (2) HIV (human immunodeficiency virus infection): Qualifiers: HIV symptom status: unspecified Qualified Code(s): B20 - Human immunodeficiency virus [HIV] disease Status: Acute Stable Continue Biktarvy
[2021-06-21] VITALS (8 sets, daily range): BP systolic 130–146; BP diastolic 78–88; PULSE 70–89; RESP 18–20; TEMP 36.4–36.9; O2SAT 93–95
[2021-06-21] MEDS: 0.9 % Sodium Chloride Flush 3 ML SYRINGE IVFLUSH ×3 (00:55→16:30)
[2021-06-21] MEDS: Clindamycin Phosphate/D5W 600 MG/50 ML PIGGYBACK 100 MG IV ×3 (04:06→16:28)
[2021-06-21] MEDS: oxyCODONE HCl Immed Release 5 MG TABLET PO ×3 (07:35→16:28)
[2021-06-21] MEDS: Albuterol/Iprat 2.5/0.5MG 3 ML AMPUL.NEB INHALE ×3 (07:58→15:52)
[2021-06-21] MEDS: Fluticasone Propionate 100 MCG BLST.W.DEV 1 PUFF INHALE (07:58)
[2021-06-21] MEDS: predniSONE 20 MG TABLET 40 MG PO (09:21)
[2021-06-21] MEDS: Propranolol HCL LA 60 MG CAP.SA.24H 120 MG PO (09:22)
[2021-06-21] MEDS: Gabapentin 600 MG TABLET PO ×2 (09:22→14:31)
[2021-06-21] MEDS: amLODIPine Besylate 5 MG TABLET PO (09:22)
[2021-06-21] MEDS: Lidocaine 4 % Patch ADH..PATCH 1 PATCH TRANSDERMA (09:22)
[2021-06-21] MEDS: Multivitamin TABLET 1 TAB PO (09:22)
[2021-06-21] MEDS: traMADoL HCL 50 MG TABLET PO (09:22)
[2021-06-21] MEDS: Dextrose 5 % and 0.9 % NaCl 1,000 ML 80 ML IVCONT (09:33)
--- NOTE | 2021-06-21 11:48 | MHC.SL.SWA ---
Speech Pathologist Impression: Risk of Aspiration Risk of Aspiration Due to: History of Pneumonia Dysphasia Diet Status: No Change Liquid Consistency and Strategies for Safe Swallow: Liquid Intake Recommendation: Thin Liquid Intake Strategies: Small Sips Solid Food Consistency: Dietary Recommendations: Regular Additional Modifications to Solid Foods: No overt s/s of aspiration with PO intake. Patient is able to feed himself. Recommend continue REGULAR solids and THIN liquids (by individual cup sip) with pills WHOLE in PUREE. Given dx of PNA, recommend continue aspiration precautions. Oral Medication Intake: Whole with Puree Compensatory Strategies and Precautions to be Taken for Safe Swallow: Sitting Upright (90 deg) Small Bites and Sips Alternate Liquids/Solids Rate of Ingestion Change Supervision While Eating and Drinking for Safe Swallow: Intermittent Supervision Swallowing Recommended Treatments: Compens. Strategy Educat. Recommendation for Speech: Further ST intervention is no longer warranted as patient tolerates an unmodified diet. Please re-refer if there are any changes or if BAKERY DECORATOR can be of further assistance. Hydrate Control Tender Clinican/Clinical Fellow: Yes: Mona Hale Supervisory Statement: I have reviewed and agree with the student/clinical fellow's documentation: Yes Speech Language Pathologist: Laura Hill M.A., CCC-BAKERY DECORATOR
[2021-06-21] MEDS: Ketorolac Tromethamine 15 MG/ML VIAL IVPUSH (14:27)
--- NOTE | 2021-06-21 16:15 | P.PNIM_ITS ---
Subjective Subjective Date of Service: 06/21/21 Interval History: Seen in f/u for lung abscess, has pain with breathing Review of Systems no fever no sob pain with breathing Physical Exam Vital Signs: Vital Signs: Last Vital Signs Temp 98.1 F 06/21/21 14:59 Pulse 77 06/21/21 15:55 Resp 20 06/21/21 14:59 BP 130/86 06/21/21 14:59 Pulse Ox 93 06/21/21 14:59 Body Mass Index 25.2 General: AO X 3, no acute distress Resp: CTA bilateral CVS: S1,S2,RRR GI: +BS, NT, no distention Skin: No rash Neuro: motor grossly intact Psych: appropriate affect Objective Data Active Medications Albuterol/Ipratropium (Albuterol/Iprat 2.5/0.5mg 3 Ml Ampul.Neb) 3 ml INHALE RQ4H [facility] Last Admin: 06/21/21 15:52 Dose: 3 ml Documented by: HUSSEIN Albuterol/Ipratropium (Albuterol/Iprat 2.5/0.5mg 3 Ml Ampul.Neb) 1.5 ml INHALE Q3H PRN PRN Reason: sob Amitriptyline HCl (Amitriptyline Hcl 50 Mg Tablet) 100 mg PO BEDTIME [facility] Last Admin: 06/20/21 20:15 Dose: 100 mg Documented by: SHAJI Amlodipine Besylate (Amlodipine Besylate 5 Mg Tablet) 5 mg PO DAILY [facility]; Protocol Last Admin: 06/21/21 09:22 Dose: 5 mg Documented by: DUNIA Benzonatate (Benzonatate 100 Mg Capsule) 100 mg PO TID PRN PRN Reason: Cough Last Admin: 06/20/21 09:32 Dose: 100 mg Documented by: RADHA Bictegravir/Emtricitabine/Tenofovir (Bictegrav/Emtricit/Tenofov Ala 1 Tab Tablet) 1 tab PO DAILY [facility] Last Admin: 06/21/21 09:22 Dose: 1 tab Documented by: DUNIA Diphenhydramine HCl (Diphenhydramine Hcl 25 Mg Tablet) 50 mg PO BEDTIME [facility] Last Admin: 06/20/21 20:15 Dose: 50 mg Documented by: SHAJI Enoxaparin Sodium (Enoxaparin Sodium 40 Mg/0.4 Ml Syringe) 40 mg SUBCUT Q24H [facility] Last Admin: 06/20/21 15:52 Dose: 40 mg Documented by: RADHA Fluticasone Propionate (Fluticasone Propionate 100 Mcg Blst.W.Dev) 1 puff INHALE RBID [facility] Last Admin: 06/21/21 07:58 Dose: 1 puff Documented by: HUSSEIN Gabapentin (Gabapentin 600 Mg Tablet) 600 mg PO TID [facility] Last Admin: 06/21/21 14:31 Dose: 600 mg Documented by: DUNIA Guaifenesin (Guaifenesin 100 Mg/5 Ml Liquid) 5 ml PO Q4H PRN PRN Reason: Cough Last Admin: 06/20/21 09:34 Dose: 5 ml Documented by: RADHA Clindamycin Phosphate (Cleocin) 600 mg in 50 mls @ 100 mls/hr IV Q6H [facility] Last Infusion: 06/21/21 10:19 Dose: 0 mls/hr Documented by: DUNIA Dextrose/Sodium Chloride (D5ns) 1,000 mls @ 80 mls/hr IVCONT .[id number] [facility] Last Admin: 06/21/21 09:33 Dose: 80 mls/hr Documented by: DUNIA Ketorolac Tromethamine (Ketorolac Tromethamine 15 Mg/Ml Vial) 15 mg IVPUSH Q6H PRN PRN Reason: Pain, Mild (Pain Scale 1-3) Last Admin: 06/21/21 14:27 Dose: 15 mg Documented by: DUNIA Lidocaine (Lidocaine 4 % Patch Adh..Patch) 1 patch TRANSDERMA DAILY [facility]; Protocol Last Admin: 06/21/21 09:22 Dose: 1 patch Documented by: DUNIA Mirtazapine (Mirtazapine 30 Mg Tablet) 30 mg PO BEDTIME [facility] Last Admin: 06/20/21 20:15 Dose: 30 mg Documented by: SHAJI Multivitamins/Vitamin C (Multivitamin Tablet) 1 tab PO DAILY [facility] Last Admin: 06/21/21 09:22 Dose: 1 tab Documented by: DUNIA Omeprazole (Omeprazole 20 Mg Capsule.Dr) 20 mg PO BEDTIME [facility] Last Admin: 06/20/21 20:15 Dose: 20 mg Documented by: SHAJI Oxycodone HCl (Oxycodone Hcl Immed Release 5 Mg Tablet) 5 mg PO Q4H PRN PRN Reason: Pain, Severe (Pain Scale 7-10) Last Admin: 06/21/21 11:38 Dose: 5 mg Documented by: DUNIA Prednisone (Prednisone 20 Mg Tablet) 40 mg PO DAILY [facility] Last Admin: 06/21/21 09:21 Dose: 40 mg Documented by: DUNIA Propranolol HCl (Propranolol Hcl La 60 Mg Cap.Sa.24h) 120 mg PO DAILY [facility]; Protocol Last Admin: 06/21/21 09:22 Dose: 120 mg Documented by: DUNIA Risperidone (Risperidone 1 Mg Tablet) 1 mg PO BEDTIME [facility] Last Admin: 06/20/21 20:15 Dose: 1 mg Documented by: SHAJI Sodium Chloride (0.9 % Sodium Chloride Flush 3 Ml Syringe) 3 ml IVFLUSH QSHIFT [facility] Last Admin: 06/21/21 09:23 Dose: 3 ml Documented by: DUNIA Tramadol HCl (Tramadol Hcl 50 Mg Tablet) 50 mg PO DAILY [facility] Last Admin: 06/21/21 09:22 Dose: 50 mg Documented by: DUNIA Labs CBC & Chem 7: 06/20/21 07:54 06/20/21 07:54 Microbiology Microbiology Results: Microbiology 06/19/21 12:48 Blood Culture - Preliminary Blood - Venous No growth after 48 hours. 06/19/21 11:00 Blood Culture - Preliminary Blood - Venous No growth after 48 hours. Assessment and Plan (1) Abscess of left lung with pneumonia: Status: Acute Assessment and Plan: 56/ male with HIV here with lung infection/abscess, clinically non-toxcic appearing 1. Lung abscess/sepsis: Possibly d/t micro aspirations Continue Clinda IV for 1 more day, then oral for total of 14 days per ID rec 2. Asthma:?No exacerbation 3.hiv:?CD4 count the 800s.? Undetectable viral load in 04/30. --continue HAART 4. Hep C--should puruit outpatient anti viral therapy 4. Depression/anxiety:? Continue Remeron and psych meds. ?dvt prophylax: s/c lovenox Home tomorrow Quality Stroke Does the patient have a stroke diagnosis?: No VTE Prior VTE?: No VTE Risk Level:: Medical - moderate - high VTE Device Contraindication: N/A - Device Ordered VTE Drug Contraindication: N/A - Med Ordered
[2021-06-21] MEDS: Enoxaparin Sodium 40 MG/0.4 ML SYRINGE SUBCUT (16:29)
--- NOTE | 2021-06-21 18:02 | PM.DS ---
DS: Providers Provider Date of Service: 06/21/21 Date of admission: 06/19/21 15:43 Primary care physician: [facility] Consults: 06/19/21 15:47 Consult to Infectious Diseases Routine Consulting Provider: Kary Ko Reason for consultation: lung abcess Has provider been notified: No DS: Diagnosis Discharge Diagnosis (1) Abscess of left lung with pneumonia: Status: Acute DS: Summary Hospital Course Hospital Course: Chief Complaint: Lung abscess 56-year-old male who was admitted in April for asthma exacerbation and bronchitis presumed-and subsequently went home with doxy and prednisone.? He said his coming back because he is having cough with brownish sputum from 1 week and some bad? smelling also.? He also says that he has some time cough when he tried to eat the food question if there is issue of aspiration silent. Reviewing CTA from April patient had question of early abscess-in right posterior basal lower lobe.See ED physician did the CT today also which shows abscess/consolidation measuring 3.6x3.9 cm and interestingly enough her his previous early abscess area is showing some improvement. He says he has some pain on the right side when he breathes or cough. Denies any new complaint of shortness of breath or abdominal pain or fever or chills or nausea or vomiting\ Denies any weakness or numbness. Lab imaging EKG personally reviewed and interpreted: WBC count is 16.[address] -chest:? Right upper lobe abscess as above. EKG:? NSR. ED physician give patient ceftriaxone and azithromycin and admission was given for lung abscess.? ED physician also discussed the case on with IR Dr. Mcwilliams -?? Thought to be small abscess , if the does not improve than may be need to be drained. Hospital course: patient was admited and treated with IV clindamyin per ID recommendation finding on imaging didnt' appear to be drainable and therefore antibiotics trial is recommended and if not improving will be consider for intervention and at this point, patient not keen on undergoing operation . He is clinically non toxic appearing. ID recommend 14 day treatment with Clindamycin which he has thus far tolerated Time Spent with Patient Time attestation: Total time spent providing and/or coordinating discharge services: Discharge coordination time: Greater than 30 minutes Quality: Stroke Does the patient have a stroke diagnosis?: No Physical Exam Vital Signs: Vital Signs: Last Vital Signs Temp 98.1 F 06/21/21 14:59 Pulse 77 06/21/21 15:55 Resp 20 06/21/21 14:59 BP 130/86 06/21/21 14:59 Pulse Ox 93 06/21/21 14:59 Body Mass Index 25.2 DS: Data Data Completed and Pending Labs on day of discharge: Preliminary micro results at discharge 06/19/21 12:48 Blood Culture - Preliminary Blood - Venous No growth after 48 hours. 06/19/21 11:00 Blood Culture - Preliminary Blood - Venous No growth after 48 hours. Discharge Plan Discharge Anticipated Discharge Date/Time: 06/21/21 17:46 Patient Disposition: Home, Self-Care Discharge Diagnosis: Lung abscess Referrals: [place] [Primary Care Provider] - 1 Week Discharge Medications: New clindamycin HCl 300 mg capsule 300 mg PO Q8H Qty: 36 RF: 0 oxycodone 5 mg Tablet 5 mg PO Q6H PRN (Reason: Pain, Severe (Pain Scale 7-10)) Qty: 14 RF: 0 Continued gabapentin 600 mg tablet 1 tab PO TID RF: 0 clonazepam 1 mg tablet 1 tab PO DAILY RF: 0 tramadol 50 mg tablet 1 tab PO DAILY RF: 0 mirtazapine 30 mg tablet 30 mg PO BEDTIME RF: 0 amitriptyline 50 mg tablet 2 tab PO BEDTIME RF: 0 acetaminophen 500 mg tablet 1 tab PO BID PRN (Reason: pain) RF: 0 albuterol sulfate 90 mcg/actuation HFA aerosol inhaler 2 puff PO Q4-6H PRN (Reason: dyspnea) RF: 0 Flovent HFA 110 mcg/actuation HFA aerosol inhaler 1 inh inhalation BID RF: 0 Biktarvy 50-200-25 mg tablet 1 tab PO DAILY RF: 0 diphenhydramine HCl [Banophen] 25 mg capsule 2 cap PO BEDTIME RF: 0 multivitamin Tablet 1 tab PO DAILY RF: 0 prednisone 10 mg tablet 40 mg PO DAILY Qty: 16 RF: 0 albuterol sulfate 2.5 mg /3 mL (0.083 %) solution for nebulization 3 ml inhalation TID PRN (Reason: asthma) RF: 0 amlodipine 5 mg tablet 1 tab PO DAILY RF: 0 propranolol 120 mg capsule,extended release 24 hr 1 cap PO DAILY RF: 0 risperidone 1 mg tablet 1 tab PO BEDTIME RF: 0 Discharge Orders: Discharge Order (Routine); Ordered 06/21/21 Ordered By: Gregg Whitaker Diet: advance to usual diet Activity on Discharge: As tolerated Stand Alone Forms: Patient Portal Discharge page Care Plan Goals: Full recovery from lung infection Health Concerns: Lung infection Plan of Treatment: Take Clindamycin as recommended and follow up with your Doctor in a week Assessment: See above
== END 2021-06-21 19:15 | disposition home or self-care (01) | DRG 179 ==
LOC: HO.ED 14:32 → HO.EDOVER 15:52 → HO.IMC 06-20 06:09
PROVIDERS: Admitting Provider Internal Medicine; Emergency Provider Emergency Medicine; Visit Provider Internal Medicine
DX: J85.1 Abscess of lung with pneumonia (principal); Z20.822 Contact with and (suspected) exposure to COVID-19; F41.9 Anxiety disorder, unspecified; F32.A Depression, unspecified; J45.909 Unspecified asthma, uncomplicated; Z21 Asymptomatic human immunodeficiency virus [HIV] infection status; Z88.0 Allergy status to penicillin; Z88.5 Allergy status to narcotic agent; Z88.6 Allergy status to analgesic agent; Z79.891 Long term (current) use of opiate analgesic; Z79.899 Other long term (current) drug therapy
CPT/HCPCS: 0241U; 36415; 71045; 71260; 80048; 80076; 80307; 83605; 83690; 84484; 85007; 85025; 85027; 85730; 87040; 92610; 93005; 94640; 96365; 99285; J0696; J1650; J1885; Q0163; Q9967

== ENCOUNTER → 2021-06-24 15:04 | Outpatient (BNVA) | payer OTHER, SELFPAY | PROVIDERS: Visit Provider Internal Medicine | DX: J85.1 Abscess of lung with pneumonia (principal) | CPT/HCPCS: 99212 ==

== ENCOUNTER 2021-07-05 20:43 | Inpatient (IN) | payer OTHER, SELFPAY ==
--- NOTE | ~2021-07-05 | CT_ITS ---
EXAMINATION: CT CHEST WITH CONTRAST CLINICAL INFORMATION: Lung abscess COMPARISON: Chest radiograph 07/05/[address] chest 06/19/2021 TECHNIQUE: Multidetector volumetric CT imaging of the chest was obtained after the administration of 65 mL of Omnipaque 350 intravenous contrast without immediate adverse reactions. Axial MIP volume rendering provided. Sagittal and coronal reformatted images were obtained. This CT examination was performed using dose optimization techniques as appropriate, variously including the following: *Automated exposure control *Adjustment of mA and/or kV according to patient size (this includes techniques or standardized protocols for targeted exams where dose is matched to indication/reason for exam; i.e. extremities or head) *Use of iterative reconstruction technique DLP: 250 to mGy-cm FINDINGS: LUNGS: Again seen is a paramediastinal lung abscess in the right upper lobe medially which contains fluid and a small amount of. Configuration is different from prior with maximal measurements of 5.0 x 3.2 x 4.5 cm. Previously this measured 3.3 x 3.1 x 3.7 cm. However, the volume of fluid within this appears smaller. No other lung masses are seen. No consolidations. No suspicious pulmonary nodules. MEDIASTINUM: No mediastinal or hilar lymphadenopathy. PLEURA: There is no pleural effusion. No pleural mass or thickening. AXILLA: No lymphadenopathy. UPPER ABDOMEN: Unremarkable OSSEOUS STRUCTURES: Multiple compression fractures are seen in upper thoracic vertebral bodies with inward bowing of superior and inferior endplates. No bony destructive lesions. CT/CT chest w con IMPRESSION: Persistent paramediastinal right upper lobe lung abscess. Overall appears larger but now more collapsed and appears to contain less volume of fluid/pus.
--- NOTE | ~2021-07-05 | XR_ITS ---
EXAMINATION: XR CHEST CLINICAL INFORMATION: Patient states coughing up blood . COMPARISON: CT chest dated from 06/19/2021. TECHNIQUE: 2 views of the chest were obtained. FINDINGS: Asymmetric outpouching abutting the right hilum corresponds to the recently described abscess on the chest CT from 06/19/2021. Otherwise, the lungs are clear. No pleural effusion or pneumothorax. No acute osseous abnormalities. XR/XR chest 2V IMPRESSION: Redemonstration of a consolidation/abscess abutting the right mediastinum, best visualized on a recent CT. No new findings.
[2021-07-05 21:47] VITALS: BP 125/86; BP 148/95; PULSE 86; PULSE 94; RESP 16; TEMP 36.9; O2SAT 97; BMI 24.3
[2021-07-05 22:00] VITALS: BP 150/99; PULSE 95; RESP 22; TEMP 36.6; O2SAT 94; O2SAT 98
[2021-07-05 22:47] VITALS: BP 150/99; PULSE 95; RESP 22; TEMP 36.6; O2SAT 94
--- NOTE | 2021-07-05 22:52 | ED.URI ---
HPI - URI/Sore Throat General Chief Complaint: Upper Respiratory Symptoms <Maria Alejandra Wu MD - Last Filed: 07/05/21 22:55> Stated Complaint: shoulder pain <Maria Alejandra Wu MD - Last Filed: 07/05/21 22:55> Time Seen by Provider: 07/05/21 22:21 <Maria Alejandra Wu MD - Last Filed: 07/05/21 22:55> History of Present Illness HPI Narrative: Patient is a 56-year-old male with a history of HIV. Patient has been taking retroviral therapy. Viral load is undetectable. Positive history coughing noted to have a possible abscess in the long about 12 days ago. Patient was started on 2 week course of clindamycin which he claims he is compliant. Complaining of continuing coughing. Continuing 8. No fever. Positive generalized malaise. Symptoms not improving despite being on clindamycin. Patient presented back to the emergency department for further evaluation. He has received all his COVID vaccine. No chest pain. No focal weakness. No diaphoresis. <Maria Alejandra Wu MD - Last Filed: 07/05/21 22:55> Related Data Home Medications: Home Medications Medication Instructions Recorded Confirmed clonazepam 1 mg tablet 1 tab PO DAILY 04/21/21 06/19/21 gabapentin 600 mg tablet 1 tab PO TID 04/21/21 06/19/21 mirtazapine 30 mg tablet 30 mg PO BEDTIME 04/21/21 06/19/21 tramadol 50 mg tablet 1 tab PO DAILY 04/21/21 06/19/21 acetaminophen 500 mg tablet 1 tab PO BID PRN 06/06/21 06/19/21 bictegravir 50 mg-emtricitabine 1 tab PO DAILY 06/06/21 06/19/21 200 mg-tenofovir alafenam 25 mg tablet (Biktarvy) diphenhydramine HCl 25 mg capsule 2 cap PO BEDTIME 06/06/21 06/19/21 (Banophen) multivitamin 1 tab PO DAILY 06/06/21 06/19/21 albuterol sulfate 3 ml INHALATION TID PRN 06/19/21 06/19/21 amlodipine 5 mg tablet 1 tab PO DAILY 06/19/21 06/19/21 propranolol 120 mg capsule,24 1 cap PO DAILY 06/19/21 06/19/21 hr,extended release risperidone 1 mg tablet 1 tab PO BEDTIME 06/19/21 06/19/21 fluticasone propionate 110 INHALATION 07/06/21 mcg/actuation HFA aerosol inhaler (Flovent HFA) Previous Rx's Medication Instructions Recorded oxycodone 5 mg tablet 5 mg PO Q6H PRN #14 tab 06/21/21 <Maria Alejandra Wu MD - Last Filed: 07/05/21 22:55> Allergies/Adverse Reactions: Allergies Allergy/AdvReac Type Severity Reaction Status Date / Time codeine Allergy Mild RASH Verified 07/05/21 21:46 [From Tylenol-Codeine #3] levofloxacin [From LEVAQUIN] Allergy Mild Rash Verified 07/05/21 21:46 metoclopramide [From Reglan] Allergy Mild RASH Verified 07/05/21 21:46 acetaminophen Allergy Unknown Unknown Verified 07/05/21 21:46 [Tylenol-Codeine #3] Motrin Allergy Unknown REflux Verified 07/05/21 21:46 Penicillins [PENICILLINS] Allergy Unknown RASH Verified 07/05/21 21:46 tramadol [From Ultram] AdvReac Mild N/V Verified 07/05/21 21:46 SEASONAL ALLERGIES Allergy Intermediate EYE Uncoded 06/06/21 16:07 DRAINAGE penicillin Allergy Unknown Unknown Uncoded 06/06/21 16:07 <Maria Alejandra Wu MD - Last Filed: 07/05/21 22:55> Review of Systems Review of Systems: No fever no chills Positive coughing upper respiratory symptoms All systems reviewed otherwise negative <Maria Alejandra Wu MD - Last Filed: 07/05/21 22:55> Yes all other systems are reviewed and are negative <Maria Alejandra Wu MD - Last Filed: 07/05/21 22:55> PMFSH Past Medical History Attestation statement: The following information was validated with the patient. <Maria Alejandra Wu MD - Last Filed: 07/05/21 22:55> Medical History: Medical History Asthma Depression Hemorrhoids HIV (human immunodeficiency virus infection) Kidney stones Pleuritic chest pain Pneumonia Substance abuse <Maria Alejandra Wu MD - Last Filed: 07/05/21 22:55> Surgical History: Surgical History H/O hemorrhoidectomy <Maria Alejandra Wu MD - Last Filed: 07/05/21 22:55> Social History Social History: Social History Household Members: None Housing: Apartment Do you presently have visiting nurse or other home services: Yes ([employer]GER daily) Alcohol intake: never Patient Tobacco Use Status: Never used Tobacco Use of substances other than those prescribed or required for medical reasons: No Advance Directives: Yes Advance Directives on File: Yes Advance Directives Date on File: 04/25/21 service: No Current occupational status: disabled <Maria Alejandra Wu MD - Last Filed: 07/05/21 22:55> Physical Exam Vital Signs: Vital Signs: Last Vital Signs Temp 98 F 07/06/21 00:34 Pulse 98 07/06/21 00:34 Resp 20 07/06/21 00:34 BP 140/91 H 07/06/21 00:34 Pulse Ox 95 07/06/21 00:34 Body Mass Index 24.3 <Maria Alejandra Wu MD - Last Filed: 07/05/21 22:55> Vital Signs: Last Vital Signs Temp 98 F 07/06/21 00:34 Pulse 98 07/06/21 00:34 Resp 20 07/06/21 00:34 BP 140/91 H 07/06/21 00:34 Pulse Ox 95 07/06/21 00:34 Body Mass Index 24.3 <Leandra Nagel DO - Last Filed: 07/06/21 01:16> Appearance: Alert. Oriented X3. No acute distress. Eyes: Pupils equal, round and reactive to light. ENT: Pharynx normal. Neck: Normal inspection. Neck supple. No lymph nodes noted. No crepitus CVS: Normal heart rate and rhythm. Pulses normal. Normal S1 and S2 Respiratory: No respiratory distress. Breath sounds normal. No Wheezing. No rales Abdomen: Soft and nontender. No rigidity. No distention. good BS x4 Skin: Skin warm and dry. Normal skin color. Normal skin turgor. Extremities: No lower extremity edema. Neurovascular intact to all extremities. No Lacerations. No Rash Neuro: Oriented X 3. No motor deficit. No sensory deficit. Moving all extermities. No slurred speech <Maria Alejandra Wu MD - Last Filed: 07/05/21 22:55> Course Course Course Narrative: received sign out at 1am from Dr. Wu - CT scan now shows at 1am worsening size of his mass/fluid collection, infection suspected at this time 1am - added on cefepime and vancomycin plan to admit given notes concluding he might need IR <Leandra Nagel DO - Last Filed: 07/06/21 01:16> MDM - URI/Sore Throat Lab Data Result diagrams: : 07/05/21 23:08 07/05/21 23:08 <Maria Alejandra Wu MD - Last Filed: 07/05/21 22:55> Labs: Lab Results 07/05/21 07/05/21 07/05/21 Range/Units 23:08 23:08 23:08 WBC 7.2 (4.8-10.8) X10*3/uL RBC 4.07 L (4.60-5.80) X10*6/uL Hgb 13.0 L (14.0-18.0) g/dl Hct 40.3 L (42-52) % MCV 99.0 H (80-98) fL MCH 31.9 (27.0-33.0) pg MCHC 32.3 (31.0-36.0) g/dl RDW 13.0 (11.0-16.0) % Plt Count TNP MPV 10.6 (9.4-12.4) fL Immature Gran % (Auto) 0.3 (0.0-0.4) % Neut % (Auto) 72.1 (45-73) % Lymph % (Auto) 14.0 L (20-40) % [place] % (Auto) 8.8 (2-11) % Eos % (Auto) 4.1 H (0-4) % Baso % (Auto) 0.7 (0-2) % Lymph # (Auto) 1.0 L (1.2-4.9) X10*3/uL [place] # (Auto) 0.6 (0.1-1.2) X10*3/uL Eos # (Auto) 0.3 (0.0-0.4) X10*3/uL Baso # (Auto) 0.1 (0.0-0.2) X10*3/uL Abs Immat Gran (auto) 0.02 (0.00-0.03) X10*3/uL Absolute Neuts (auto) 5.2 (2.0-8.3) X10*3/uL Absolute Nucleated RBC 0.000 (0.0-0.012) X10*3/uL Nucleated RBC % (auto) 0.0 (0.0-0.2) /100WBC Sodium 140 (135-145) mmol/L Potassium 3.6 (3.3-5.1) mmol/L Chloride 107 (96-108) mmol/L Carbon Dioxide 23 (22-29) mmol/L Anion Gap 14 (12-20) BUN 8 L (9-16) mg/dL Creatinine 0.79 (0.5-1.4) mg/dL Estim Creat Clear Calc 93.0 Estimated GFR > 60 Random Glucose 127 H D (60-115) mg/dL Lactic Acid 1.9 (0.5-2.0) mmol/L Calcium 8.5 (8.4-10.2) mg/dL Total Bilirubin 0.2 (0.0-1.0) mg/dL Direct Bilirubin < 0.2 (0.0-0.5) mg/dL AST 13 (5-37) U/L ALT 8 (0-40) U/L Alkaline Phosphatase 86 (39-117) U/L Total Protein 7.4 (6.5-8.0) g/dL Albumin 3.6 (3.5-5.0) g/dL COVID-19 (TAMMIE) (Negative) COVID-19 Clin Com 07/05/21 Range/Units 23:11 WBC (4.8-10.8) X10*3/uL RBC (4.60-5.80) X10*6/uL Hgb (14.0-18.0) g/dl Hct (42-52) % MCV (80-98) fL MCH (27.0-33.0) pg MCHC (31.0-36.0) g/dl RDW (11.0-16.0) % Plt Count MPV (9.4-12.4) fL Immature Gran % (Auto) (0.0-0.4) % Neut % (Auto) (45-73) % Lymph % (Auto) (20-40) % [place] % (Auto) (2-11) % Eos % (Auto) (0-4) % Baso % (Auto) (0-2) % Lymph # (Auto) (1.2-4.9) X10*3/uL [place] # (Auto) (0.1-1.2) X10*3/uL Eos # (Auto) (0.0-0.4) X10*3/uL Baso # (Auto) (0.0-0.2) X10*3/uL Abs Immat Gran (auto) (0.00-0.03) X10*3/uL Absolute Neuts (auto) (2.0-8.3) X10*3/uL Absolute Nucleated RBC (0.0-0.012) X10*3/uL Nucleated RBC % (auto) (0.0-0.2) /100WBC Sodium (135-145) mmol/L Potassium (3.3-5.1) mmol/L Chloride (96-108) mmol/L Carbon Dioxide (22-29) mmol/L Anion Gap (12-20) BUN (9-16) mg/dL Creatinine (0.5-1.4) mg/dL Estim Creat Clear Calc Estimated GFR Random Glucose (60-115) mg/dL Lactic Acid (0.5-2.0) mmol/L Calcium (8.4-10.2) mg/dL Total Bilirubin (0.0-1.0) mg/dL Direct Bilirubin (0.0-0.5) mg/dL AST (5-37) U/L ALT (0-40) U/L Alkaline Phosphatase (39-117) U/L Total Protein (6.5-8.0) g/dL Albumin (3.5-5.0) g/dL COVID-19 (TAMMIE) Negative (Negative) COVID-19 Clin Com See Note <Maria Alejandra Wu MD - Last Filed: 07/05/21 22:55> Lab Results 07/05/21 07/05/21 07/05/21 Range/Units 23:08 23:08 23:08 WBC 7.2 (4.8-10.8) X10*3/uL RBC 4.07 L (4.60-5.80) X10*6/uL Hgb 13.0 L (14.0-18.0) g/dl Hct 40.3 L (42-52) % MCV 99.0 H (80-98) fL MCH 31.9 (27.0-33.0) pg MCHC 32.3 (31.0-36.0) g/dl RDW 13.0 (11.0-16.0) % Plt Count TNP MPV 10.6 (9.4-12.4) fL Immature Gran % (Auto) 0.3 (0.0-0.4) % Neut % (Auto) 72.1 (45-73) % Lymph % (Auto) 14.0 L (20-40) % [place] % (Auto) 8.8 (2-11) % Eos % (Auto) 4.1 H (0-4) % Baso % (Auto) 0.7 (0-2) % Lymph # (Auto) 1.0 L (1.2-4.9) X10*3/uL [place] # (Auto) 0.6 (0.1-1.2) X10*3/uL Eos # (Auto) 0.3 (0.0-0.4) X10*3/uL Baso # (Auto) 0.1 (0.0-0.2) X10*3/uL Abs Immat Gran (auto) 0.02 (0.00-0.03) X10*3/uL Absolute Neuts (auto) 5.2 (2.0-8.3) X10*3/uL Absolute Nucleated RBC 0.000 (0.0-0.012) X10*3/uL Nucleated RBC % (auto) 0.0 (0.0-0.2) /100WBC Sodium 140 (135-145) mmol/L Potassium 3.6 (3.3-5.1) mmol/L Chloride 107 (96-108) mmol/L Carbon Dioxide 23 (22-29) mmol/L Anion Gap 14 (12-20) BUN 8 L (9-16) mg/dL Creatinine 0.79 (0.5-1.4) mg/dL Estim Creat Clear Calc 93.0 Estimated GFR > 60 Random Glucose 127 H D (60-115) mg/dL Lactic Acid 1.9 (0.5-2.0) mmol/L Calcium 8.5 (8.4-10.2) mg/dL Total Bilirubin 0.2 (0.0-1.0) mg/dL Direct Bilirubin < 0.2 (0.0-0.5) mg/dL AST 13 (5-37) U/L ALT 8 (0-40) U/L Alkaline Phosphatase 86 (39-117) U/L Total Protein 7.4 (6.5-8.0) g/dL Albumin 3.6 (3.5-5.0) g/dL COVID-19 (TAMMIE) (Negative) COVID-19 Clin Com 07/05/21 Range/Units 23:11 WBC (4.8-10.8) X10*3/uL RBC (4.60-5.80) X10*6/uL Hgb (14.0-18.0) g/dl Hct (42-52) % MCV (80-98) fL MCH (27.0-33.0) pg MCHC (31.0-36.0) g/dl RDW (11.0-16.0) % Plt Count MPV (9.4-12.4) fL Immature Gran % (Auto) (0.0-0.4) % Neut % (Auto) (45-73) % Lymph % (Auto) (20-40) % [place] % (Auto) (2-11) % Eos % (Auto) (0-4) % Baso % (Auto) (0-2) % Lymph # (Auto) (1.2-4.9) X10*3/uL [place] # (Auto) (0.1-1.2) X10*3/uL Eos # (Auto) (0.0-0.4) X10*3/uL Baso # (Auto) (0.0-0.2) X10*3/uL Abs Immat Gran (auto) (0.00-0.03) X10*3/uL Absolute Neuts (auto) (2.0-8.3) X10*3/uL Absolute Nucleated RBC (0.0-0.012) X10*3/uL Nucleated RBC % (auto) (0.0-0.2) /100WBC Sodium (135-145) mmol/L Potassium (3.3-5.1) mmol/L Chloride (96-108) mmol/L Carbon Dioxide (22-29) mmol/L Anion Gap (12-20) BUN (9-16) mg/dL Creatinine (0.5-1.4) mg/dL Estim Creat Clear Calc Estimated GFR Random Glucose (60-115) mg/dL Lactic Acid (0.5-2.0) mmol/L Calcium (8.4-10.2) mg/dL Total Bilirubin (0.0-1.0) mg/dL Direct Bilirubin (0.0-0.5) mg/dL AST (5-37) U/L ALT (0-40) U/L Alkaline Phosphatase (39-117) U/L Total Protein (6.5-8.0) g/dL Albumin (3.5-5.0) g/dL COVID-19 (TAMMIE) Negative (Negative) COVID-19 Clin Com See Note <Leandra Nagel DO - Last Filed: 07/06/21 01:16> Discharge Plan Discharge Clinical Impression: Abscess of lung <Maria Alejandra Wu MD - Last Filed: 07/05/21 22:55> Patient Disposition: Admitted As Inpatient <Maria Alejandra Wu MD - Last Filed: 07/05/21 22:55> Prescriptions: No Action gabapentin 600 mg tablet 1 tab PO TID RF: 0 clonazepam 1 mg tablet 1 tab PO DAILY RF: 0 tramadol 50 mg tablet 1 tab PO DAILY RF: 0 mirtazapine 30 mg tablet 30 mg PO BEDTIME RF: 0 acetaminophen 500 mg tablet 1 tab PO BID PRN (Reason: pain) RF: 0 Biktarvy 50-200-25 mg tablet 1 tab PO DAILY RF: 0 diphenhydramine HCl [Banophen] 25 mg capsule 2 cap PO BEDTIME RF: 0 multivitamin Tablet 1 tab PO DAILY RF: 0 albuterol sulfate 2.5 mg /3 mL (0.083 %) solution for nebulization 3 ml inhalation TID PRN (Reason: asthma) RF: 0 amlodipine 5 mg tablet 1 tab PO DAILY RF: 0 propranolol 120 mg capsule,extended release 24 hr 1 cap PO DAILY RF: 0 risperidone 1 mg tablet 1 tab PO BEDTIME RF: 0 oxycodone 5 mg Tablet 5 mg PO Q6H PRN (Reason: Pain, Severe (Pain Scale 7-10)) Qty: 14 RF: 0 Flovent HFA 110 mcg/actuation HFA aerosol inhaler inhalation RF: 0 <Maria Alejandra Wu MD - Last Filed: 07/05/21 22:55>
[2021-07-05] MEDS: 0.9 % Sodium Chloride 1,000 ML 999 ML IV (23:00)
[2021-07-05 23:14] LABS: Imm Gran Abs Auto 0.02 X10*3/uL (0.00-0.03); Imm Gran Pct Auto 0.3 % (0.0-0.4); Mean Corpuscular HGB Conc 32.3 g/dl (31.0-36.0); Mean Corpuscular Hemoglobin 31.9 pg (27.0-33.0); PLT CLUMP 1; SCAN SMEAR FLAG 1
[2021-07-05 23:16] LABS: Basophils Absolute Auto 0.1 X10*3/uL (0.0-0.2); Basophils Percent Auto 0.7 % (0-2); Eosinophils Absolute Auto 0.3 X10*3/uL (0.0-0.4); Eosinophils Percent Auto 4.1 % (0-4); Hematocrit 40.3 % (42-52); MANUAL DIFF FLAG NO; Mean Platelet Volume 10.6 fL (9.4-12.4); Monocytes Absolute Auto 0.6 X10*3/uL (0.1-1.2); Monocytes Percent Auto 8.8 % (2-11); Neutrophils Absolute Auto 5.2 X10*3/uL (2.0-8.3); Neutrophils Percent Auto 72.1 % (45-73); Red Blood Count 4.07 X10*6/uL (4.60-5.80); White Blood Count 7.2 X10*3/uL (4.8-10.8)
[2021-07-05 23:28] LABS: Lactic Acid 1.9 mmol/L (0.5-2.0)
[2021-07-05 23:33] LABS: Alanine Aminotransferase 8 U/L (0-40); Albumin Level 3.6 g/dL (3.5-5.0); Alkaline Phosphatase 86 U/L (39-117); Anion Gap 14 (12-20); Aspartate Amino Transferase 13 U/L (5-37); Bilirubin Direct < 0.2 mg/dL (0.0-0.5); Bilirubin Total 0.2 mg/dL (0.0-1.0); Blood Urea Nitrogen 8 mg/dL (9-16); Calcium 8.5 mg/dL (8.4-10.2); Carbon Dioxide 23 mmol/L (22-29); Chloride 107 mmol/L (96-108); Estimated Glomerular Filt Rate > 60; Glucose Random 127 mg/dL (60-115); Potassium 3.6 mmol/L (3.3-5.1); Sodium 140 mmol/L (135-145); Total Protein 7.4 g/dL (6.5-8.0)
[2021-07-05 23:34] LABS: COVID-19 Test Negative (Negative); IDNOW Serial# 08D9AD1C
[2021-07-06] VITALS (12 sets, daily range): BP systolic 103–147; BP diastolic 65–98; PULSE 58–98; RESP 15–22; TEMP 35.5–36.6; O2SAT 91–95; BMI 24.6
--- NOTE | 2021-07-06 | ECG_ITS ---
Test Reason : cp Blood Pressure : / mmHG Vent. Rate : 077 BPM Atrial Rate : 077 BPM P-R Int : 164 ms QRS Dur : 104 ms QT Int : 416 ms P-R-T Axes : 076 070 056 degrees QTc Int : 470 ms Normal sinus rhythm Possible Left atrial enlargement Incomplete right bundle branch block Borderline ECG When compared with ECG of 19-JUN-2021 09:22, No significant change was found Referred By: Quirino Aranda Electronically Signed By:JAVID ARECHIGA MD
[2021-07-06] MEDS: iohexoL 350 MG/ML 100 ML INFUS..BTL 65 ML IV (00:47)
--- NOTE | 2021-07-06 01:27 | P.HPHOSP_ITS ---
History of Present Illness Date of Service: 07/06/21 Chief Complaint: Cough and sputum production 56-year-old male with a past medical history of asthma, anxiety, depression, HIV, history of renal calculi, substance abuse, hypertension, recent admission to the hospital for lung abscess, to the hospital with a chief complaint of not feeling well, increased cough with sputum production, shortness of breath. Patient mentions that he was discharged on 06/21/2021 with a 14 day course of clindamycin. Mentioned that he has been complaint with his oral antibiotics. But did not feel like he is improving and continued to have cough and sputum production. Also complains of posttussive chest discomfort. Denies any lightheadedness or dizziness. Reports decreased oral intake Denies any nausea vomiting diarrhea. Denies any urinary symptoms. Denies any recent travel or sick contacts. Review of all other systems is negative except mentioned above ER course: Per ER team patient on presentation has stable vitals, saturating 92% on room air; coarse lung sounds; CT scan showed persistent paramediastinal right upper lobe lung abscess oral appears larger but no more collapsed and less fluid; patient was given IV vancomycin and cefepime. Admitted to the hospital for further management. REPLACED BY [facility] Medical History Asthma Depression Hemorrhoids HIV (human immunodeficiency virus infection) Kidney stones Pleuritic chest pain Pneumonia Substance abuse Pertinent family history: Reviewed Surgical History H/O hemorrhoidectomy Social History Household Members: None Housing: Apartment Do you presently have visiting nurse or other home services: Yes (GALLERY DIRECTOR daily) Alcohol intake: never Patient Tobacco Use Status: Never used Tobacco Use of substances other than those prescribed or required for medical reasons: No Advance Directives: Yes Advance Directives on File: Yes Advance Directives Date on File: 04/25/21 service: No Current occupational status: disabled Meds Allergies Allergy/AdvReac Type Severity Reaction Status Date / Time codeine Allergy Mild RASH Verified 07/05/21 21:46 [From Tylenol-Codeine #3] levofloxacin [From LEVAQUIN] Allergy Mild Rash Verified 07/05/21 21:46 metoclopramide [From Reglan] Allergy Mild RASH Verified 07/05/21 21:46 acetaminophen Allergy Unknown Unknown Verified 07/05/21 21:46 [Tylenol-Codeine #3] Motrin Allergy Unknown REflux Verified 07/05/21 21:46 Penicillins [PENICILLINS] Allergy Unknown RASH Verified 07/05/21 21:46 tramadol [From Ultram] AdvReac Mild N/V Verified 07/05/21 21:46 SEASONAL ALLERGIES Allergy Intermediate EYE Uncoded 06/06/21 16:07 DRAINAGE penicillin Allergy Unknown Unknown Uncoded 06/06/21 16:07 Active Medications: Current Medications Vancomycin HCl 750 mg/ Sodium (Chloride) 265 mls @ 265 mls/hr IV ONCE ONE Stop: 07/06/21 02:12 Vancomycin HCl 1,000 mg/ (Sodium Chloride) 270 mls @ 270 mls/hr IV Q12H [facility] Metronidazole (Flagyl) 500 mg in 100 mls @ 100 mls/hr IV Q8H [facility] Pharmacy Consult (Consult Rx Perform Med Rec) 1 each MISCELLANE ONCE PRN PRN Reason: Consult order Pharmacy Consult (Consult Rx Vancomycin Dosing) 1 each MISCELLANE DAILY PRN PRN Reason: Consult order Pharmacy Consult (Consult Rx Vancomycin Dosing) 1 each MISCELLANE DAILY PRN PRN Reason: Consult order Home Medications Medication Instructions Recorded Confirmed Last Taken Type clonazepam 1 mg tablet 1 tab PO DAILY 04/21/21 06/19/21 06/05/21 History gabapentin 600 mg tablet 1 tab PO TID 04/21/21 06/19/21 06/05/21 History mirtazapine 30 mg tablet 30 mg PO BEDTIME 04/21/21 06/19/21 06/05/21 History tramadol 50 mg tablet 1 tab PO DAILY 04/21/21 06/19/21 06/05/21 History acetaminophen 500 mg tablet 1 tab PO BID PRN 06/06/21 06/19/21 06/05/21 History bictegravir 50 mg-emtricitabine 1 tab PO DAILY 06/06/21 06/19/21 06/05/21 History 200 mg-tenofovir alafenam 25 mg tablet (Biktarvy) diphenhydramine HCl 25 mg capsule 2 cap PO BEDTIME 06/06/21 06/19/21 06/05/21 History (Banophen) multivitamin 1 tab PO DAILY 06/06/21 06/19/21 06/05/21 History albuterol sulfate 3 ml INHALATION TID PRN 06/19/21 06/19/21 Unknown History amlodipine 5 mg tablet 1 tab PO DAILY 06/19/21 06/19/21 Unknown History propranolol 120 mg capsule,24 1 cap PO DAILY 06/19/21 06/19/21 Unknown History hr,extended release risperidone 1 mg tablet 1 tab PO BEDTIME 06/19/21 06/19/21 Unknown History fluticasone propionate 110 INHALATION 07/06/21 Unknown History mcg/actuation HFA aerosol inhaler (Flovent HFA) Physical Exam Vital Signs and Narrative: Vital Signs: Last Vital Signs Temp 98 F 07/06/21 00:34 Pulse 98 07/06/21 00:34 Resp 20 07/06/21 00:34 BP 140/91 H 07/06/21 00:34 Pulse Ox 95 07/06/21 00:34 Body Mass Index 24.3 Gen: Appears be in no acute distress HEENT: NCAT, Moist mucosa. Pulmonary: Vesicular breath sounds on the left; coarse breath sounds on the right; fair air entry CVS: Normal S1-S2 Abdomen: BS+, Soft, Nontender Extremities: Warm well perfused Neuro: Alert and awake. Results Labs CBC and Chem 7: 07/05/21 23:08 07/05/21 23:08 Labs: Laboratory Results - last 24 hr 07/05/21 07/05/21 07/05/21 23:08 23:08 23:08 MCV 99.0 H MCH 31.9 MCHC 32.3 RDW 13.0 Plt Count TNP MPV 10.6 Immature Gran % (Auto) 0.3 Neut % (Auto) 72.1 Lymph % (Auto) 14.0 L [place] % (Auto) 8.8 Eos % (Auto) 4.1 H Baso % (Auto) 0.7 Lymph # (Auto) 1.0 L [place] # (Auto) 0.6 Eos # (Auto) 0.3 Baso # (Auto) 0.1 Abs Immat Gran (auto) 0.02 Absolute Neuts (auto) 5.2 Absolute Nucleated RBC 0.000 Nucleated RBC % (auto) 0.0 Anion Gap 14 Estim Creat Clear Calc 93.0 Estimated GFR > 60 Random Glucose 127 H D Lactic Acid 1.9 Calcium 8.5 Total Bilirubin 0.2 Direct Bilirubin < 0.2 AST 13 ALT 8 Alkaline Phosphatase 86 Total Protein 7.4 Albumin 3.6 COVID-19 (TAMMIE) COVID-19 Clin Com 07/05/21 23:11 MCV MCH MCHC RDW Plt Count MPV Immature Gran % (Auto) Neut % (Auto) Lymph % (Auto) [place] % (Auto) Eos % (Auto) Baso % (Auto) Lymph # (Auto) [place] # (Auto) Eos # (Auto) Baso # (Auto) Abs Immat Gran (auto) Absolute Neuts (auto) Absolute Nucleated RBC Nucleated RBC % (auto) Anion Gap Estim Creat Clear Calc Estimated GFR Random Glucose Lactic Acid Calcium Total Bilirubin Direct Bilirubin AST ALT Alkaline Phosphatase Total Protein Albumin COVID-19 (TAMMIE) Negative COVID-19 Clin Com See Note Imaging Radiologist's Impressions: Impressions Chest X-Ray 07/05/21 21:54 IMPRESSION: Redemonstration of a consolidation/abscess abutting the right mediastinum, best visualized on a recent CT. No new findings. Chest CT 07/06/21 00:00 IMPRESSION: Persistent paramediastinal right upper lobe lung abscess. Overall appears larger but now more collapsed and appears to contain less volume of fluid/pus. Assessment and Plan (1) Abscess of lower lobe of right lung with pneumonia: Status: Acute (2) HIV (human immunodeficiency virus infection): Qualifiers: HIV symptom status: unspecified Qualified Code(s): B20 - Human immunodeficiency virus [HIV] disease Status: Acute 56-year-old male with a past medical history of asthma, anxiety, depression, HIV, history of renal calculi, substance abuse, hypertension, recent admission to the hospital for lung abscess, to the hospital with a chief complaint of not feeling well, increased cough with sputum production, shortness of breath. CT scan showed persistent lung abscess. Admitted for further management. Right upper lobe lung abscess: Patient clinically not improving. Will give the patient on vancomycin, cefepime, Flagyl. Id consult Sputum for Gram stain, culture, AFB. Follow-up cultures DuoNebs p.r.n. Supplemental oxygen p.r.n. Also consult pulmonology. Chest pain: Patient complains of left-sided noted chest pain. Worsens with deep inspiration. Dilaudid p.r.n. Will obtain EKG and troponins as well. History of HIV: Continue home Biktarvy History of hypertension: Continue home amlodipine History of anxiety/depressions: Continue home clonazepam, gabapentin, risperidone, mirtazapine DVT prophylaxis: SCD boots Code status: Full code Quality Stroke Does the patient have a stroke diagnosis?: No VTE Prior VTE?: No VTE Risk Level:: Medical - low VTE Device Contraindication: N/A - Device Ordered VTE Drug Contraindication: Treatment Not Indicated
[2021-07-06] MEDS: Morphine Sulfate Immed Release 15 MG TABLET PO (01:41)
[2021-07-06] MEDS: cefEPime HCl 2 GM in 0.9 % Sodium Chloride 50 ML IV (01:41)
[2021-07-06] MEDS: vancomycin HCL 750 MG in 0.9 % Sodium Chloride 250 ML 265 MG IV (02:19)
[2021-07-06] MEDS: Dextrose 5 % and 0.45 % NaCl 1,000 ML 100 ML IVCONT (02:21)
[2021-07-06 02:54] LABS: Troponin-I High Sensitivity < 3.5 ng/L (<3.5-35.0)
[2021-07-06] MEDS: HYDROmorphone HCl 0.5 MG/0.5 ML SYRINGE IVPUSH ×3 (03:14→15:44)
[2021-07-06] MEDS: metroNIDAZOLE/NS 500 MG/100 ML PIGGYBACK 100 MG IV (03:15)
--- NOTE | 2021-07-06 06:55 | PHA.PROG ---
Admission Date/Time: July 06, 2021 01:25 Indication: Weight in k.3 kg Adjusted body weight in K KG Malone body weight in K.8 KG Obesity Dosing Indication % IBW: Serum Creatinine - Last 168 Hours 07/05/21 23:08 Creatinine 0.79 Estimated CrCl and GFR - Last 168 Hours 07/05/21 23:08 Estim Creat Clear Calc 93.0 Estimated GFR > 60 Vancomycin Loading Dose: 750 MG GIVEN IN ED Current Vancomycin Dosing Regimen: 1000 MG Q12H Vancomycin Monitoring using AUC goal of 400 - 600 range with trough as surrogate marker: PREDICTED AUC 501, PREDICTED TROUGH 15.3 Date and Time for next Vancomycin Level to be drawn: 07/07/21 @1300 Pharmacist Comments on Vancomycin Plan: Vancomycin dosing will take advantage of [employer] as a clinical decision support tool that uses Bayesian modeling to calculate individual patient's pharmacokinetic parameters and forecast the patient's drug concentration time course with the target goal AUC 24 range of 400 - 600 mg/L/hr.
--- NOTE | 2021-07-06 07:36 | PHA.MEDREC ---
Pharmacy Consult ? Medication Reconciliation Nursing has completed the medication reconciliation and Pharmacy has reviewed the documentation.
[2021-07-06 07:59] LABS: MANUAL DIFF FLAG NO
[2021-07-06 08:07] LABS: Basophils Percent Auto 0.4 % (0-2); Eosinophils Absolute Auto 0.3 X10*3/uL (0.0-0.4); Hematocrit 34.8 % (42-52); Hemoglobin 11.6 g/dl (14.0-18.0); Imm Gran Abs Auto 0.02 X10*3/uL (0.00-0.03); Imm Gran Pct Auto 0.3 % (0.0-0.4); Lymphocytes Absolute Auto 1.3 X10*3/uL (1.2-4.9); Lymphocytes Percent Auto 15.9 % (20-40); Mean Corpuscular HGB Conc 33.3 g/dl (31.0-36.0); Mean Corpuscular Hemoglobin 31.9 pg (27.0-33.0); Mean Corpuscular Volume 95.6 fL (80-98); Mean Platelet Volume 10.1 fL (9.4-12.4); Monocytes Absolute Auto 0.9 X10*3/uL (0.1-1.2); Monocytes Percent Auto 11.6 % (2-11); Neutrophils Absolute Auto 5.4 X10*3/uL (2.0-8.3); Neutrophils Percent Auto 67.8 % (45-73); Platelet Count 342 X10*3/uL (160-400); Red Blood Count 3.64 X10*6/uL (4.60-5.80); Red Cell Distribution Width 12.8 % (11.0-16.0); White Blood Count 7.9 X10*3/uL (4.8-10.8)
[2021-07-06 08:20] LABS: Anion Gap 14 (12-20); Blood Urea Nitrogen 5 mg/dL (9-16); Calcium 7.9 mg/dL (8.4-10.2); Carbon Dioxide 21 mmol/L (22-29); Chloride 110 mmol/L (96-108); Estimated Glomerular Filt Rate > 60; Glucose Random 94 mg/dL (60-115); Potassium 3.5 mmol/L (3.3-5.1); Sodium 141 mmol/L (135-145)
[2021-07-06] MEDS: Propranolol HCL LA 60 MG CAP.SA.24H 120 MG PO (08:39)
[2021-07-06] MEDS: amLODIPine Besylate 5 MG TABLET PO (08:41)
[2021-07-06] MEDS: Gabapentin 600 MG TABLET PO ×3 (08:42→20:04)
[2021-07-06] MEDS: Clindamycin Phosphate/D5W 600 MG/50 ML PIGGYBACK 100 MG IV ×2 (08:51→16:14)
--- NOTE | 2021-07-06 09:28 | MHC.CM.PN ---
Addendum entered by Bia Talavera 07/06/21 09:34: Sister Ute [employer]/HCP 2h daily assist ADLs. Patient has transportation services thru [facility]. Original Note: IMM 07/06/21 Male 56 DX LUNG abscess. He lives alone with assist from SIS/[employer]SEMBLER/HCP. HCP on file. DP home with resumption of services already in place. His [facility] will provide transport to home.
--- NOTE | 2021-07-06 14:20 | MHC.CLN ---
Addendum entered by Cee Burkett, ANA 07/06/21 14:23: AGREE WITH PROVIDER'S ASSESSMENT BELOW SEE ALSO CLINICAL NUTRITION ASSESSMENT Original Note: RE: CONSULT PT IS AT INCREASED NUTRITION RISK R/T HIV DIAGNOSIS, POLYSUBSTANCE ABUSE AND LUNG ABSCESS PT'S WT WAS DOCUMENTED 79.1 KG ON 12/29/20 WHICH WOULD BE CONCERN FOR SIGNIFICANT WT LOSS, BUT THE ACCURACY OF THIS WT IS QUESTIONABLE VERIFICIATION OF THIS WT COULD NOT BE OBTAINED FROM THE PT PT WAS VERY LETHARGIC AND COULD ONLY NOD HEAD AND BARELY OPEN EYES WHEN ASKED QUESTIONS PT EXPERIENCED WT GAIN FROM PREVIOUS VISIT TO NOW (06/06/21: 67.5 KG, 07/06/21: 69.3 KG) PREVIOUS VISIT FROM PT DOCUMENTED GOOD PO INTAKE AND PT DENIED POOR INTAKE/APPETITIE PT HAS MILD SUBCUTANEOUS FAT DEPLETION IN ORBITAL AREA, NO OTHER PHYSCICAL SIGNS/SYMPTOMS OF MALNUTRITION
[2021-07-06] MEDS: vancomycin HCL 1,000 MG in 0.9 % Sodium Chloride 250 ML 270 MG IV (14:37)
[2021-07-06] MEDS: 0.9 % Sodium Chloride Flush 3 ML SYRINGE IVFLUSH ×3 (14:40→22:44)
[2021-07-06] MEDS: Acetaminophen 325 MG TABLET 650 MG PO ×2 (16:29→23:06)
[2021-07-06] MEDS: risperiDONE 1 MG TABLET PO (20:04)
--- NOTE | 2021-07-06 21:16 | P.CNID_ITS ---
History of Present Illness Data of Consult Service Date: 07/06/21 Requesting physician: Shawn Adorno Primary Care Provider: Akira Lobo MD HPI Reason for consult: left lung abscess He presents with ongoing cough. He has dry cough. He has recent admission for lung abscess and discharged po Clindamycin for two weeks. Review of Systems Review of Systems: Yes all other systems are reviewed and are negative PMFSH Past Medical History Medical History Asthma Depression Hemorrhoids HIV (human immunodeficiency virus infection) Kidney stones Pleuritic chest pain Pneumonia Substance abuse Family History Family history: reviewed and not pertinent Surgical History Surgical History H/O hemorrhoidectomy Social History Social History Household Members: None Housing: Apartment Do you presently have visiting nurse or other home services: Yes (system support technician and vna) Alcohol intake: never Patient Tobacco Use Status: Never used Tobacco Second Hand Smoke Exposure: No Use of substances other than those prescribed or required for medical reasons: No Currently Displaying Signs/Symptoms of Drug Intoxication Withdrawal: No Any prior treatment program specific to substance use: No Have you been hit, kicked, punched, or otherwise hurt by someone within the past year? If so, by whom?: No Do you feel safe in your current relationship?: No Current Relationship Is there a partner from a previous relationship who is making you feel unsafe now?: No Are you made to feel afraid or neglected: No Advance Directives: Yes Advance Directives Information Provided: Yes Advance Directives on File: Yes Advance Directives Date on File: 04/25/21 Do you have thoughts of harming others: None Do you have a plan to hurt others: No Plan Recently lost weight without trying: Yes How much weight loss: 2-13 pounds Eating poorly because of decreased appetite: No Nutrition screen score: 3 Nutrition Risks: No Nutritional Risk Poor oral hygiene: No service: No Current occupational status: disabled Meds Allergies Allergy/AdvReac Type Severity Reaction Status Date / Time codeine Allergy Mild RASH Verified 07/05/21 21:46 [From Tylenol-Codeine #3] levofloxacin [From LEVAQUIN] Allergy Mild Rash Verified 07/05/21 21:46 metoclopramide [From Reglan] Allergy Mild RASH Verified 07/05/21 21:46 acetaminophen Allergy Unknown Unknown Verified 07/05/21 21:46 [Tylenol-Codeine #3] Motrin Allergy Unknown REflux Verified 07/05/21 21:46 Penicillins [PENICILLINS] Allergy Unknown RASH Verified 07/05/21 21:46 tramadol [From Ultram] AdvReac Mild N/V Verified 07/05/21 21:46 SEASONAL ALLERGIES Allergy Intermediate EYE Uncoded 06/06/21 16:07 DRAINAGE penicillin Allergy Unknown Unknown Uncoded 06/06/21 16:07 Active Medications: Current Medications Acetaminophen (Acetaminophen 325 Mg Tablet) 650 mg PO Q6H PRN PRN Reason: Pain, Mild (Pain Scale 1-3) Last Admin: 07/06/21 16:29 Dose: 650 mg Documented by: Amlodipine Besylate (Amlodipine Besylate 5 Mg Tablet) 5 mg PO DAILY [facility]; Protocol Last Admin: 07/06/21 08:41 Dose: 5 mg Documented by: Bictegravir/Emtricitabine/Tenofovir (Bictegrav/Emtricit/Tenofov Ala 1 Tab Tablet) 1 tab PO DAILY [facility] Last Admin: 07/06/21 08:40 Dose: 1 tab Documented by: Gabapentin (Gabapentin 600 Mg Tablet) 600 mg PO TID [facility] Last Admin: 07/06/21 20:04 Dose: 600 mg Documented by: Guaifenesin (Guaifenesin 100 Mg/5 Ml Liquid) 5 ml PO Q6H PRN PRN Reason: Cough Hydromorphone HCl (Hydromorphone Hcl 0.5 Mg/0.5 Ml Syringe) 0.5 mg IVPUSH Q4H PRN; Protocol PRN Reason: Breakthrough Pain Last Admin: 07/06/21 15:44 Dose: 0.5 mg Documented by: Vancomycin HCl 1,000 mg/ (Sodium Chloride) 270 mls @ 270 mls/hr IV Q12H [facility] Last Infusion: 07/06/21 16:54 Dose: Infused Documented by: Clindamycin Phosphate (Cleocin) 600 mg in 50 mls @ 100 mls/hr IV Q8H [facility] Last Infusion: 07/06/21 16:59 Dose: Infused Documented by: Melatonin (Melatonin 3 Mg Tablet) 6 mg PO BEDTIME PRN PRN Reason: Insomnia Mirtazapine (Mirtazapine 30 Mg Tablet) 30 mg PO BEDTIME [facility] Pharmacy Consult (Consult Rx Perform Med Rec) 1 each MISCELLANE ONCE PRN PRN Reason: Consult order Pharmacy Consult (Consult Rx Vancomycin Dosing) 1 each MISCELLANE DAILY PRN PRN Reason: Consult order Propranolol HCl (Propranolol Hcl La 60 Mg Cap.Sa.24h) 120 mg PO DAILY [facility]; Protocol Last Admin: 07/06/21 08:39 Dose: 120 mg Documented by: Risperidone (Risperidone 1 Mg Tablet) 1 mg PO BEDTIME [facility] Last Admin: 07/06/21 20:04 Dose: 1 mg Documented by: Senna (Sennosides 8.6 Mg Tablet) 17.2 mg PO BEDTIME PRN PRN Reason: Constipation Sodium Chloride (0.9 % Sodium Chloride Flush 3 Ml Syringe) 3 ml IVFLUSH QSHIFT [facility] Last Admin: 07/06/21 20:04 Dose: 3 ml Documented by: Home Medications Medication Instructions Recorded Confirmed Last Taken Type clonazepam 1 mg tablet 1 tab PO DAILY 04/21/21 07/06/21 06/05/21 History gabapentin 600 mg tablet 1 tab PO TID 04/21/21 07/06/21 06/05/21 History mirtazapine 30 mg tablet 30 mg PO BEDTIME 04/21/21 07/06/21 06/05/21 History tramadol 50 mg tablet 1 tab PO DAILY 04/21/21 07/06/21 06/05/21 History acetaminophen 500 mg tablet 1 tab PO BID PRN 06/06/21 07/06/21 06/05/21 History bictegravir 50 mg-emtricitabine 1 tab PO DAILY 06/06/21 07/06/21 06/05/21 History 200 mg-tenofovir alafenam 25 mg tablet (Biktarvy) albuterol sulfate 3 ml INHALATION TID PRN 06/19/21 07/06/21 Unknown History amlodipine 5 mg tablet 1 tab PO DAILY 06/19/21 07/06/21 Unknown History propranolol 120 mg capsule,24 1 cap PO DAILY 06/19/21 07/06/21 Unknown History hr,extended release risperidone 1 mg tablet 1 tab PO BEDTIME 06/19/21 07/06/21 Unknown History Physical Exam Vital Signs: Vital Signs: Last Vital Signs Temp 97.1 F 07/06/21 19:06 Pulse 58 07/06/21 19:06 Resp 20 07/06/21 19:06 BP 103/69 07/06/21 19:06 Pulse Ox 91 L 07/06/21 19:06 Body Mass Index 24.6 Const: General: cooperative HENMT: Ears: hearing grossly normal bilaterally Mouth: Normal oral and palatal mucosa present Resp: Effort & Inspection: normal respiratory effort Cardio: Rate: regular rate Rhythm: regular rhythm GI: Palpation (GI): Soft to palpation and nontender Extrem: General: Yes normal to inspection Results Labs CBC & Chem 7: 07/06/21 07:50 07/06/21 07:50 Labs: Short CBC 07/05/21 07/06/21 Range/Units 23:08 07:50 WBC 7.2 7.9 (4.8-10.8) X10*3/uL Hgb 13.0 L 11.6 L (14.0-18.0) g/dl Hct 40.3 L 34.8 L (42-52) % Plt Count TNP 342 D BMP 07/05/21 07/06/21 23:08 07:50 Sodium 140 141 Potassium 3.6 3.5 Chloride 107 110 H Carbon Dioxide 23 21 L BUN 8 L 5 L Creatinine 0.79 0.75 Calcium 8.5 7.9 L D Liver Function 07/05/21 Range/Units 23:08 Total Bilirubin 0.2 (0.0-1.0) mg/dL Direct Bilirubin < 0.2 (0.0-0.5) mg/dL AST 13 (5-37) U/L ALT 8 (0-40) U/L Alkaline Phosphatase 86 (39-117) U/L Albumin 3.6 (3.5-5.0) g/dL Assessment and Plan (1) Abscess of lung: Qualifiers: Laterality: right Lung location: upper lobe of lung Pulmonary abscess pneumonia presence: with pneumonia Qualified Code(s): J85.1 - Abscess of lung with pneumonia Status: Acute (2) Abscess of left lung with pneumonia: Qualifiers: Lung location: upper lobe of lung Qualified Code(s): J85.1 - Abscess of lung with pneumonia Status: Acute He has taken Clindamycin He has possible gram negative,gram positive Would switch to po Augmentin and Bactrim for 6 weeks on discharge. If fever or chills or failure to start to resolve in two weeks would consider IV therapy
[2021-07-06] MEDS: cefEPime HCl 1 GM in 0.9 % Sodium Chloride 50 ML IV (22:44)
[2021-07-07] MEDS: HYDROmorphone HCl 0.5 MG/0.5 ML SYRINGE IVPUSH ×4 (00:12→13:49)
[2021-07-07] MEDS: Mirtazapine 30 MG TABLET PO (00:12)
[2021-07-07] MEDS: vancomycin HCL 1,000 MG in 0.9 % Sodium Chloride 250 ML 270 MG IV (02:51)
[2021-07-07 03:12] VITALS: BP 135/87; PULSE 56; RESP 18; TEMP 36.3; O2SAT 98
[2021-07-07] MEDS: cefEPime HCl 1 GM in 0.9 % Sodium Chloride 50 ML IV (05:24)
[2021-07-07] MEDS: guaiFENesin 100 MG/5 ML LIQUID PO (05:27)
--- NOTE | 2021-07-07 05:59 | PC.NURSE ---
CARE ASSUMED 23;15...NAPPING INTERMITTANTLY...AWAKE..ALERT...ORIENTED X3...O2 2 L/M VIA CANNULA..NO DISTRESS AT REST...RAISED THICK BROWN SPUTUM THIS AM...SPUTUM SENT TO LAB PER NOV..MEDICATED X2 OVERNIGHT WITH PRN DILAUDID FOR C/O CHEST PAIN WORSE WITH COUGH/DEEP INSPIRATION....OOB TO BR STEADY GAIT...PASSED LOOSE BROWN STOOL AND VOIDED..NSR..NO ECTOPY..VANCOMYCIN AND CEFEPIME INFUSED W/O INCIDENT
[2021-07-07 07:18] VITALS: BP 157/93; PULSE 68; RESP 18; TEMP 36.6; O2SAT 95
[2021-07-07 07:46] VITALS: BP 157/93; PULSE 68
[2021-07-07] MEDS: amLODIPine Besylate 5 MG TABLET PO (07:46)
[2021-07-07] MEDS: Acetaminophen 325 MG TABLET 650 MG PO ×2 (07:46→12:25)
[2021-07-07 07:48] VITALS: BP 157/93; PULSE 68
[2021-07-07] MEDS: Propranolol HCL LA 60 MG CAP.SA.24H 120 MG PO (07:48)
[2021-07-07] MEDS: Gabapentin 600 MG TABLET PO (07:49)
[2021-07-07 11:00] VITALS: BP 170/95; PULSE 61; RESP 20; TEMP 36.9; O2SAT 97
--- NOTE | 2021-07-07 11:38 | PM.DS ---
DS: Providers Provider Date of Service: 07/07/21 Date of admission: 07/06/21 01:25 Primary care physician: Akira Lobo MD Consults: 07/06/21 01:23 Consult to Infectious Diseases Routine Consulting Provider: Kary Ko Reason for consultation: Lung abscess DS: Diagnosis Discharge Diagnosis (1) Abscess of lung: Status: Acute (2) Abscess of left lung with pneumonia: Status: Acute (3) HIV (human immunodeficiency virus infection): Status: Acute DS: Summary Status at Discharge Cognitive/behavioral status at discharge: patient with HIV compliant with meds admitted for pain and cough after 2 weeks of treatment for lung abscess. did not appear septic or hypoxic. CT showed enlarging cavity but decreased fluid. was seen by ID who recommended prolonging antibiotic course for 6 weeks and changing to ceftin and bactrim, and if no improvement may meed IV course or surgical intervention. for now patient appears stable and will be discharged home on PO. Time Spent with Patient Time attestation: Total time spent providing and/or coordinating discharge services: Discharge coordination time: Greater than 30 minutes Quality: Stroke Does the patient have a stroke diagnosis?: No Physical Exam Vital Signs: Vital Signs: Last Vital Signs Temp 98.5 F 07/07/21 11:00 Pulse 61 07/07/21 11:00 Resp 20 07/07/21 11:00 BP 170/95 H 07/07/21 11:00 Pulse Ox 97 07/07/21 11:00 Body Mass Index 24.6 General: AO X 3, no acute distress Resp: CTA bilateral, no accessory muscles used CVS: S1,S2,RRR GI: soft, non tender, non distended Neuro: motor grossly intact, alert Psych: appropriate affect, appropriate insight DS: Data Data Completed and Pending Labs on day of discharge: Preliminary micro results at discharge 07/05/21 23:11 Blood Culture - Preliminary Blood - Venous No growth after 24 hours. 07/05/21 23:08 Blood Culture - Preliminary Blood - Venous No growth after 24 hours. Discharge Plan Discharge Patient Disposition: Home, Self-Care Discharge Diagnosis: lung abscess Referrals: Kary Ko MD [Physician] - 1 Week Akira Lobo MD [Primary Care Provider] - 07/08/21 10:00 am (You have an appointment scheduled for July 08 at 10:00 am.) Discharge Medications: New cefuroxime axetil 500 mg tablet 500 mg PO BID Qty: 84 RF: 0 sulfamethoxazole-trimethoprim [Bactrim DS] 800-160 mg tablet 1 tab PO Q12H Qty: 84 RF: 0 Continued gabapentin 600 mg tablet 1 tab PO TID RF: 0 clonazepam 1 mg tablet 1 tab PO DAILY RF: 0 tramadol 50 mg tablet 1 tab PO DAILY RF: 0 mirtazapine 30 mg tablet 30 mg PO BEDTIME RF: 0 acetaminophen 500 mg tablet 1 tab PO BID PRN (Reason: pain) RF: 0 Biktarvy 50-200-25 mg tablet 1 tab PO DAILY RF: 0 albuterol sulfate 2.5 mg /3 mL (0.083 %) solution for nebulization 3 ml inhalation TID PRN (Reason: asthma) RF: 0 amlodipine 5 mg tablet 1 tab PO DAILY RF: 0 propranolol 120 mg capsule,extended release 24 hr 1 cap PO DAILY RF: 0 risperidone 1 mg tablet 1 tab PO BEDTIME RF: 0 Discharge Orders: Discharge Order (Routine); Ordered 07/07/21 Ordered By: Shawn Adorno Diet: advance to usual diet Activity on Discharge: As tolerated Stand Alone Forms: Patient Portal Discharge page Care Plan Goals: complete treatment for lung abscess Health Concerns: lung abscess Plan of Treatment: 6 weeks antibiotics as prescribed Assessment: see above
[2021-07-07 13:43] LABS: Vancomycin Trough 11.4 mcg/mL (10.0-20.0)
== END 2021-07-07 14:58 | disposition home or self-care (01) | DRG 179 ==
LOC: HO.ED 07-06 01:16 → HO.EDOVER 07-06 01:35 → HO.IMC 07-06 05:27
PROVIDERS: Emergency Medicine Emergency Medical Services; Admitting Provider Hospitalist; Emergency Provider Emergency Medicine; PCP Internal Medicine; Visit Provider Internal Medicine
DX: J85.1 Abscess of lung with pneumonia (principal); Z20.822 Contact with and (suspected) exposure to COVID-19; Z21 Asymptomatic human immunodeficiency virus [HIV] infection status; Z88.0 Allergy status to penicillin; Z88.5 Allergy status to narcotic agent; Z79.891 Long term (current) use of opiate analgesic; Z79.899 Other long term (current) drug therapy
CPT/HCPCS: 36415; 71046; 71260; 80048; 80076; 80202; 83605; 84484; 85025; 87040; 87116; 87635; 93005; 96361; 96365; 96375; 99285; J0692; J1170; J3370; Q9967

== ENCOUNTER 2021-07-08 11:24 | Outpatient (REF) | payer OTHER, SELFPAY ==
[2021-07-15 08:02] LABS: Lipoprotein A 70 nmol/L (<75)
[2021-07-15 20:22] LABS: HCV Genotype PCR Not Detected
== END 2021-07-08 11:25 | disposition home or self-care (01) ==
LOC: HO.LAB 11:24
PROVIDERS: PCP Internal Medicine; Visit Provider Internal Medicine Infectious Disease
DX: B19.20 Unspecified viral hepatitis C without hepatic coma (principal)
CPT/HCPCS: 36415; 83695

== ENCOUNTER → 2021-08-17 13:08 | Outpatient (BNVA) | payer OTHER, SELFPAY | PROVIDERS: Visit Provider Internal Medicine | DX: J85.1 Abscess of lung with pneumonia (principal); Z79.2 Long term (current) use of antibiotics | CPT/HCPCS: 99212 ==

== ENCOUNTER 2021-09-17 09:11 | Outpatient (REF) | payer OTHER, SELFPAY ==
[2021-09-24 16:01] LABS: HCV Log PCR <1.18 NOT DETECTED Log IU/mL (NOT DETECTED); HepC Viral Load <15 NOT DETECTED IU/mL (NOT DETECTED)
[2021-09-24 18:17] LABS: Hepatitis C Genotype Not Detected
== END 2021-09-17 09:12 | disposition home or self-care (01) ==
LOC: HO.LAB 09:11
PROVIDERS: Visit Provider Internal Medicine Infectious Disease
DX: B20 Human immunodeficiency virus [HIV] disease (principal)
CPT/HCPCS: 36415; 87522; 87902

== ENCOUNTER 2022-01-03 09:21 | Outpatient (REF) | payer OTHER, SELFPAY ==
--- NOTE | ~2022-01-03 | US_ITS ---
EXAMINATION: US ABDOMEN COMPLETE CLINICAL INFORMATION: Chronic viral hepatitis C, HCV/HCC screen. COMPARISON: CT abdomen and pelvis 05/01/2021. XR abdomen KUB 07/03/2019 and 09/24/2018. US retroperitoneal limited (renal only) 01/25/2018 and 07/15/2016. TECHNIQUE: Real-time imaging of the abdominal viscera. FINDINGS: PANCREAS: Normal. ABDOMINAL AORTA: The proximal, mid, and distal segments are normal in caliber. INFERIOR VENA CAVA: Visualized portions are normal. LIVER: The liver is normal in size. The liver contour is normal. There is diffuse increased liver parenchymal echogenicity and coarsened echotexture, consistent with infiltrative hepatocellular disease. No focal hepatic lesion. There is no intrahepatic biliary duct dilatation seen. GALLBLADDER: Normal. The gallbladder is physiologically distended without evidence of stones, sludge, polyps, wall thickening or pericholecystic fluid. COMMON BILE DUCT: Normal in caliber measuring 0.5 cm in diameter. RIGHT KIDNEY: There is a 4 x 2 mm echogenic focus of the lower pole of the kidney which may represent a nonobstructing calculus. No hydronephrosis or focal parenchymal lesions. The kidney measures 9.1 cm in maximum dimension. LEFT KIDNEY: There is a 4 x 3 mm echogenic focus at the upper pole likely representing a nonobstructing calculus. No hydronephrosis or focal parenchymal lesions. The kidney measures 10.0 cm in maximum dimension. SPLEEN: Normal. The spleen measures 8.8 cm in maximum dimension. FREE FLUID: None. US/US abdomen complete IMPRESSION: Echogenic, coarsened liver parenchyma compatible with hepatocellular disease. No focal lesions identified. Subcentimeter bilateral nonobstructing renal calculi.
[2022-01-05 08:56] LABS: HCV Log PCR <1.18 NOT DETECTED Log IU/mL (NOT DETECTED); HepC Viral Load <15 NOT DETECTED IU/mL (NOT DETECTED)
== END 2022-01-03 09:22 | disposition home or self-care (01) ==
LOC: HO.US 09:21
PROVIDERS: Absent Provider Internal Medicine; Visit Provider Internal Medicine Infectious Disease
DX: B18.2 Chronic viral hepatitis C (principal)
CPT/HCPCS: 36415; 76700; 87522

== ENCOUNTER 2022-01-16 22:39 | Inpatient (IN) | payer OTHER, SELFPAY ==
--- NOTE | ~2022-01-16 | CT_ITS ---
EXAMINATION: CT HEAD WITHOUT CONTRAST CLINICAL INFORMATION: Headache COMPARISON: 01/02/2019 TECHNIQUE: Contiguous axial imaging was performed from the skull base to vertex without intravenous contrast. This CT examination was performed using dose optimization techniques as appropriate, variously including the following: * Automated exposure control * Adjustment of mA and/or kV according to patient size (this includes techniques or standardized protocols for targeted exams where dose is matched to indication/reason for exam; i.e. extremities or head) Use of iterative reconstruction technique DLP: 644 mGy-cm. FINDINGS: There is no evidence of acute intracranial hemorrhage or territorial infarction. No abnormal mass effect or midline shift is seen. Lowe to white matter differentiation is well preserved. No extra-axial fluid collections are identified. No hydrocephalus. No significant volume loss. There is no abnormal attenuation within the brain parenchyma. The osseous structures and soft tissues are normal. Mild mucoperiosteal thickening of the bilateral ethmoid air cells and maxillary sinuses.. The mastoid air cells and visualized portions of the paranasal sinuses are otherwise well aerated. CT/CT head/brain wo con IMPRESSION: No acute intracranial pathology. Mild paranasal sinus opacification.
--- NOTE | ~2022-01-16 | CT_ITS ---
EXAMINATION: CT CHEST WITHOUT CONTRAST CLINICAL INFORMATION: Chest pain. Hypoxia. COMPARISON: Previous chest x-ray January [address] June 2021 TECHNIQUE: Multidetector volumetric CT imaging of the chest was done. Axial MIP volume rendering provided. Sagittal and coronal reformatted images were obtained. This CT examination was performed using dose optimization techniques as appropriate, variously including the following: *Automated exposure control *Adjustment of mA and/or kV according to patient size (this includes techniques or standardized protocols for targeted exams where dose is matched to indication/reason for exam; i.e. 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 There is subsegmental atelectasis or small infiltrate at the lung bases. The previously identified cavitary lesion in the medial anterior segment of the right upper lobe adjacent to the mediastinum is no longer seen. MEDIASTINUM: There are small mediastinal lymph nodes that are stable. Evaluation for hilar adenopathy is limited without contrast. There are small right hilar lymph nodes. There is question of more prominent left hilar lymph nodes. This could be better evaluated with IV contrast when available. The heart is normal in size. There is mild coronary artery calcification. There is no pericardial effusion. The thoracic aorta caliber. PLEURA: There is no pleural effusion. No pleural mass or thickening. AXILLA: No chest wall mass or enlarged axillary lymph nodes. UPPER ABDOMEN: Small bilateral renal calcifications questionable for stones. Fatty infiltration of the pancreas. OSSEOUS STRUCTURES: There are old mid thoracic vertebral body compression fractures that appear unchanged. CT/CT chest wo con IMPRESSION: Limited exam due to artifact from respiratory motion. Subsegmental atelectasis or small infiltrates at the lung bases. Resolved right upper lobe lung abscess from June 2021. Question left hilar lymphadenopathy. Stable small mediastinal lymph nodes. Stable old mid thoracic vertebral body compression fractures. Fleischner guidelines were followed.
--- NOTE | ~2022-01-16 | XR_ITS ---
EXAMINATION: XR CHEST CLINICAL INFORMATION: Cough COMPARISON: 07/05/2021 TECHNIQUE: Frontal view of the chest was obtained. FINDINGS: Cardiac leads overlie the chest. The lungs are well expanded. There is no focal consolidation, edema, or effusion. Bronchial wall thickening noted. No pneumothorax. The cardiomediastinal silhouette is within normal limits. No acute osseous abnormality. XR/XR chest 1V IMPRESSION: No dense consolidation. Bronchial wall thickening can be seen with a small airways process such as asthma or atypical/viral infection.
[2022-01-16 23:02] VITALS: BP 146/96; BP 189/116; PULSE 100; PULSE 88; RESP 24; TEMP 36.5; O2SAT 91; O2SAT 96; BMI 25.7
[2022-01-16 23:18] VITALS: BP 146/96; PULSE 86; RESP 17; TEMP 36.5; O2SAT 91
--- NOTE | 2022-01-16 23:27 | ED.SOB ---
HPI - SOB/Dyspnea General Chief Complaint: Dyspnea Stated Complaint: CP/Cough Time Seen by Provider: 01/16/22 23:27 Source: patient Mode of arrival: EMS Limitations: no limitations History of Present Illness HPI Narrative: Patient history of asthma anxiety depression HIV undetectable viral load, hypertension, lung abscess comes here for 2 days of mid chest pain with cough and 1 day of running nose patient received COVID vaccine including a booster dose pain increases with deep breath and cough patient is saturating 91% on 3 L nasal cannula on arrival Related Data Home Medications Medication Instructions Recorded Confirmed clonazepam 1 mg tablet 1 tab PO DAILY 04/21/21 07/06/21 gabapentin 600 mg tablet 1 tab PO TID 04/21/21 07/06/21 mirtazapine 30 mg tablet 30 mg PO BEDTIME 04/21/21 07/06/21 tramadol 50 mg tablet 1 tab PO DAILY 04/21/21 07/06/21 acetaminophen 500 mg tablet 1 tab PO BID PRN 06/06/21 07/06/21 bictegravir 50 mg-emtricitabine 1 tab PO DAILY 06/06/21 07/06/21 200 mg-tenofovir alafenam 25 mg tablet (Biktarvy) albuterol sulfate 3 ml INHALATION TID PRN 06/19/21 07/06/21 amlodipine 5 mg tablet 1 tab PO DAILY 06/19/21 07/06/21 propranolol 120 mg capsule,24 1 cap PO DAILY 06/19/21 07/06/21 hr,extended release risperidone 1 mg tablet 1 tab PO BEDTIME 06/19/21 07/06/21 Previous Rx's Medication Instructions Recorded cefuroxime axetil 500 mg tablet 500 mg PO BID #84 tab 07/07/21 sulfamethoxazole 800 1 tab PO Q12H #84 tab 07/07/21 mg-trimethoprim 160 mg tablet (Bactrim DS) Allergies Allergy/AdvReac Type Severity Reaction Status Date / Time codeine Allergy Mild RASH Verified 08/17/21 13:16 [From Tylenol-Codeine #3] levofloxacin [From LEVAQUIN] Allergy Mild Rash Verified 08/17/21 13:16 metoclopramide [From Reglan] Allergy Mild RASH Verified 08/17/21 13:16 acetaminophen Allergy Unknown Unknown Verified 08/17/21 13:16 [Tylenol-Codeine #3] Motrin Allergy Unknown REflux Verified 08/17/21 13:16 Penicillins [PENICILLINS] Allergy Unknown RASH Verified 08/17/21 13:16 tramadol [From Ultram] AdvReac Mild N/V Verified 08/17/21 13:16 SEASONAL ALLERGIES Allergy Intermediate EYE Uncoded 06/06/21 16:07 DRAINAGE penicillin Allergy Unknown Unknown Uncoded 06/06/21 16:07 Review of Systems Review of Systems: Yes all other systems are reviewed and are negative [facility] Past Medical History Medical History Asthma Depression Hemorrhoids Hepatitis C HIV (human immunodeficiency virus infection) Kidney stones Pleuritic chest pain Pneumonia Substance abuse Surgical History H/O hemorrhoidectomy Social History Social History Household Members: None Housing: Apartment Do you presently have visiting nurse or other home services: Yes (endorsement clerk and vna) Alcohol intake: never Patient Tobacco Use Status: Never used Tobacco Second Hand Smoke Exposure: No Advance Directives Date on File: 04/25/21 service: No Current occupational status: disabled Physical Exam Vital Signs: Vital Signs: Last Vital Signs Temp 97.7 F 01/16/22 23:18 Pulse 81 01/17/22 00:51 Resp 22 H 01/17/22 00:51 BP 161/93 H 01/17/22 00:00 Pulse Ox 87 L 01/17/22 00:00 Oxygen Flow Rate 2 01/16/22 23:02 BMI result Body Mass Index 25.7 Appearance: Alert. Oriented X3. No acute distress. Eyes: No pallor or icterus ENT: Pharynx normal. Oral Mucosa moist Neck: Normal inspection. Neck supple. CVS: Normal heart rate and rhythm. Pulses normal. Respiratory: Mild respiratory distress. Equal air entry bilateral, bilateral wheezing/rhonchi Abdomen: Soft and nontender. Bowel sounds are present, no mass palpable, no CVA tenderness Skin: Skin warm and dry. Normal skin color. Normal skin turgor. Extremities: No lower extremity edema. No calf tenderness Neuro: Oriented X 3. MDM - SOB/Dyspnea MDM Narrative Medical decision making narrative: Patient HIV with undetectable viral load in 04/30 with history of asthma comes here for cough shortness of breath with mid chest pain with it clear rhinorrhea COVID and influenza negative chest x-ray nonspecific bronchial wall thickening. Patient is saturating 87% at room air she is not on any oxygen at home will admit patient for hypoxia and acute bronchitis/asthma Differential Diagnosis Differential diagnosis: Likely pneumonia and asthma with exacerbation Medical Records Attestation: I reviewed the patient's medical records. Lab Data Attestation: I reviewed the patient's lab results. Result diagrams: 01/16/22 23:44 01/16/22 23:44 Labs: Lab Results 01/16/22 01/16/22 01/16/22 Range/Units 23:42 23:42 23:44 WBC 6.4 (4.8-10.8) X10*3/uL RBC 4.33 L (4.60-5.80) X10*6/uL Hgb 13.3 L (14.0-18.0) g/dl Hct 40.6 L (42.0-52.0) % MCV 93.8 (80.0-98.0) fL MCH 30.7 (27.0-33.0) pg MCHC 32.8 (31.0-36.0) g/dl RDW 13.9 (11.0-16.0) % Plt Count 168 (160-400) X10*3/uL MPV 10.7 (9.4-12.4) fL Immature Gran % (Auto) 0.2 (0.0-0.4) % Neut % (Auto) 71.4 (45-73) % Lymph % (Auto) 9.9 L (20-40) % Power % (Auto) 10.4 (2-11) % Eos % (Auto) 7.2 H (0-4) % Baso % (Auto) 0.9 (0-2) % Lymph # (Auto) 0.6 L (1.2-4.9) X10*3/uL Power # (Auto) 0.7 (0.1-1.2) X10*3/uL Eos # (Auto) 0.5 H (0.0-0.4) X10*3/uL Baso # (Auto) 0.1 (0.0-0.2) X10*3/uL Abs Immat Gran (auto) 0.01 (0.00-0.03) X10*3/uL Absolute Neuts (auto) 4.6 (2.0-8.3) x10*3/uL Absolute Nucleated RBC 0.000 (0.0-0.012) X10*3/uL Nucleated RBC % (auto) 0.0 (0.0-0.2) /100WBC PT (9.9-13.0) SEC INR (0.9-1.1) Sodium (135-145) mmol/L Potassium (3.3-5.1) mmol/L Chloride (96-108) mmol/L Carbon Dioxide (22-29) mmol/L Anion Gap (12-20) BUN (9-16) mg/dL Creatinine (0.5-1.4) mg/dL Estim Creat Clear Calc Estimated GFR Random Glucose (60-115) mg/dL Lactic Acid (0.5-2.0) mmol/L Calcium (8.4-10.2) mg/dL Total Bilirubin (0.0-1.0) mg/dL AST (5-37) U/L ALT (0-40) U/L Alkaline Phosphatase (39-117) U/L Total Protein (6.5-8.0) g/dL Albumin (3.5-5.0) g/dL COVID-19 (TAMMIE) Negative (Negative) COVID-19 Clin Com See Note Influenza Type A (KEVON) Negative (Negative) Influenza Type B (KEVON) Negative (Negative) Influenza A & B Note See Note 01/16/22 01/17/22 01/17/22 Range/Units 23:44 01:07 01:07 WBC (4.8-10.8) X10*3/uL RBC (4.60-5.80) X10*6/uL Hgb (14.0-18.0) g/dl Hct (42.0-52.0) % MCV (80.0-98.0) fL MCH (27.0-33.0) pg MCHC (31.0-36.0) g/dl RDW (11.0-16.0) % Plt Count (160-400) X10*3/uL MPV (9.4-12.4) fL Immature Gran % (Auto) (0.0-0.4) % Neut % (Auto) (45-73) % Lymph % (Auto) (20-40) % Power % (Auto) (2-11) % Eos % (Auto) (0-4) % Baso % (Auto) (0-2) % Lymph # (Auto) (1.2-4.9) X10*3/uL Power # (Auto) (0.1-1.2) X10*3/uL Eos # (Auto) (0.0-0.4) X10*3/uL Baso # (Auto) (0.0-0.2) X10*3/uL Abs Immat Gran (auto) (0.00-0.03) X10*3/uL Absolute Neuts (auto) (2.0-8.3) x10*3/uL Absolute Nucleated RBC (0.0-0.012) X10*3/uL Nucleated RBC % (auto) (0.0-0.2) /100WBC PT 13.0 (9.9-13.0) SEC INR 1.1 (0.9-1.1) Sodium 139 (135-145) mmol/L Potassium 4.1 (3.3-5.1) mmol/L Chloride 103 (96-108) mmol/L Carbon Dioxide 29 (22-29) mmol/L Anion Gap 11 L (12-20) BUN 12 (9-16) mg/dL Creatinine 1.13 (0.5-1.4) mg/dL Estim Creat Clear Calc 65.0 Estimated GFR > 60 Random Glucose 104 (60-115) mg/dL Lactic Acid 1.3 (0.5-2.0) mmol/L Calcium 8.7 D (8.4-10.2) mg/dL Total Bilirubin 0.3 (0.0-1.0) mg/dL AST 18 (5-37) U/L ALT 19 (0-40) U/L Alkaline Phosphatase 71 (39-117) U/L Total Protein 7.0 (6.5-8.0) g/dL Albumin 4.0 (3.5-5.0) g/dL COVID-19 (TAMMIE) (Negative) COVID-19 Clin Com Influenza Type A (KEVON) (Negative) Influenza Type B (KEVON) (Negative) Influenza A & B Note ECG Data Attestation: I personally reviewed and interpreted this ECG as follows: Interpretation: Normal sinus rhythm heart rate 91 beats per minute incomplete right bundle-branch block no acute ST T wave changes no acute ischemia Discharge Plan Discharge Clinical Impression: Asthma with exacerbation, Hypoxia, Chest pain Patient Disposition: Admitted As Inpatient
[2022-01-16 23:50] LABS: MANUAL DIFF FLAG NO
[2022-01-16 23:52] LABS: Basophils Absolute Auto 0.1 X10*3/uL (0.0-0.2); Basophils Percent Auto 0.9 % (0-2); Eosinophils Absolute Auto 0.5 X10*3/uL (0.0-0.4); Eosinophils Percent Auto 7.2 % (0-4); Hematocrit 40.6 % (42.0-52.0); Hemoglobin 13.3 g/dl (14.0-18.0); Imm Gran Abs Auto 0.01 X10*3/uL (0.00-0.03); Imm Gran Pct Auto 0.2 % (0.0-0.4); Lymphocytes Absolute Auto 0.6 X10*3/uL (1.2-4.9); Lymphocytes Percent Auto 9.9 % (20-40); Mean Corpuscular HGB Conc 32.8 g/dl (31.0-36.0); Mean Corpuscular Hemoglobin 30.7 pg (27.0-33.0); Mean Corpuscular Volume 93.8 fL (80.0-98.0); Mean Platelet Volume 10.7 fL (9.4-12.4); Monocytes Absolute Auto 0.7 X10*3/uL (0.1-1.2); Monocytes Percent Auto 10.4 % (2-11); Neutrophils Absolute Auto 4.6 x10*3/uL (2.0-8.3); Neutrophils Percent Auto 71.4 % (45-73); Platelet Count 168 X10*3/uL (160-400); Red Blood Count 4.33 X10*6/uL (4.60-5.80); Red Cell Distribution Width 13.9 % (11.0-16.0); White Blood Count 6.4 X10*3/uL (4.8-10.8)
[2022-01-17] VITALS (15 sets, daily range): BP systolic 118–171; BP diastolic 74–109; PULSE 46–95; RESP 13–35; TEMP 36.2–37.1; O2SAT 87–98
[2022-01-17 00:10] LABS: COVID-19 Test Negative (Negative); IDNOW Serial# 55D5AD1C; Influenza A Negative (Negative); Influenza B2 Negative (Negative)
[2022-01-17 00:10] LABS: Alanine Aminotransferase 19 U/L (0-40); Alkaline Phosphatase 71 U/L (39-117); Anion Gap 11 (12-20); Aspartate Amino Transferase 18 U/L (5-37); Bilirubin Total 0.3 mg/dL (0.0-1.0); Blood Urea Nitrogen 12 mg/dL (9-16); Calcium 8.7 mg/dL (8.4-10.2); Carbon Dioxide 29 mmol/L (22-29); Chloride 103 mmol/L (96-108); Estimated Glomerular Filt Rate > 60; Glucose Random 104 mg/dL (60-115); Potassium 4.1 mmol/L (3.3-5.1); Sodium 139 mmol/L (135-145)
[2022-01-17] MEDS: Benzonatate 100 MG CAPSULE 200 MG PO (00:32)
[2022-01-17] MEDS: 0.9 % Sodium Chloride 1,000 ML 999 ML IV (00:45)
[2022-01-17] MEDS: Albuterol/Iprat 2.5/0.5MG 3 ML AMPUL.NEB INHALE ×2 (00:51→20:22)
--- NOTE | 2022-01-17 00:58 | ECG_ITS ---
Test Reason : CHEST PAIN Blood Pressure : / mmHG Vent. Rate : 091 BPM Atrial Rate : 091 BPM P-R Int : 160 ms QRS Dur : 102 ms QT Int : 382 ms P-R-T Axes : 060 068 037 degrees QTc Int : 469 ms Normal sinus rhythm Possible Left atrial enlargement Incomplete right bundle branch block T wave abnormality, consider anterior ischemia Abnormal ECG When compared with ECG of 06-JUL-2021 02:44, No significant change was found Referred By: Mohit Harrison Electronically Signed By:ZHANG OCHOA MD
[2022-01-17 01:21] LABS: INTERNATIONAL NORM RATIO 1.1 (0.9-1.1)
[2022-01-17 01:26] LABS: Lactic Acid 1.3 mmol/L (0.5-2.0)
[2022-01-17 01:34] LABS: Troponin-I High Sensitivity 3.7 ng/L (<3.5-35.0)
[2022-01-17] MEDS: cefTRIAXone sodium 1 GM in 0.9 % Sodium Chloride 50 ML IV (01:46)
[2022-01-17] MEDS: Morphine Sulfate 2 MG/ML CARTRIDGE 1 MG IVPUSH ×3 (02:15→19:59)
[2022-01-17] MEDS: dexAMETHasone 6 MG TABLET PO (02:17)
[2022-01-17] MEDS: Azithromycin 500 MG in 0.9 % Sodium Chloride 250 ML 125 MG IV (02:17)
--- NOTE | 2022-01-17 03:34 | PM.IMHP ---
History of Present Illness Date of Service: 01/17/22 Chief Complaint: Shortness of breath/chest pain 56-year-old male with a past medical history of asthma, HIV, anxiety, depression, history of pleuritic chest pain, history of hep C, kidney stones, hemorrhoids, history of lung abscess in 2020; presented to the hospital today with a chief complaint of chest pain. Patient reports that he was doing fine until yesterday; he developed shortness of breath; today he developed chest pain located in the center of the chest, nonradiating, no associated lightheadedness dizziness nausea vomiting or diaphoresis. Also reported dry cough. As he is having severe pain he decided to come to the ER for further evaluation. Denies any recent travel or sick contacts. Denies any numbness tingling or focal weakness. Denies any fevers at home. Review of all other systems is negative except mentioned above ER course: Per ER team patient noted to have reproducible chest pain; EKG was nonischemic; troponin negative; patient on minimal exertion noted to be hypoxic to 87% on room air; placed on supplemental oxygen; on lung exam noted to have a bilateral wheezing; concern for asthma exacerbation-given Decadron and nebulizer treatment. Admitted to the hospital for further management. 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) Alcohol intake: never Patient Tobacco Use Status: Never used Tobacco Second Hand Smoke Exposure: No Advance Directives: Yes Advance Directives on File: Yes Advance Directives Date on File: 04/25/21 service: No Current occupational status: disabled Meds Allergies Allergy/AdvReac Type Severity Reaction Status Date / Time codeine Allergy Mild RASH Verified 08/17/21 13:16 [From Tylenol-Codeine #3] levofloxacin [From LEVAQUIN] Allergy Mild Rash Verified 08/17/21 13:16 metoclopramide [From Reglan] Allergy Mild RASH Verified 08/17/21 13:16 acetaminophen Allergy Unknown Unknown Verified 08/17/21 13:16 [Tylenol-Codeine #3] Motrin Allergy Unknown REflux Verified 08/17/21 13:16 Penicillins [PENICILLINS] Allergy Unknown RASH Verified 08/17/21 13:16 tramadol [From Ultram] AdvReac Mild N/V Verified 08/17/21 13:16 SEASONAL ALLERGIES Allergy Intermediate EYE Uncoded 06/06/21 16:07 DRAINAGE penicillin Allergy Unknown Unknown Uncoded 06/06/21 16:07 Active Medications: Current Medications Albuterol/Ipratropium (Albuterol/Iprat 2.5/0.5mg 3 Ml Ampul.Neb) 3 ml INHALE RQ4H PRN PRN Reason: Shortness of Breath/Wheezing Benzonatate (Benzonatate 100 Mg Capsule) 100 mg PO TID PRN PRN Reason: Cough Enoxaparin Sodium (Enoxaparin Sodium 40 Mg/0.4 Ml Syringe) 40 mg SUBCUT Q24H MICHAEL Hydromorphone HCl (Hydromorphone Hcl 0.5 Mg/0.5 Ml Syringe) 0.5 mg IVPUSH ONCE ONE; Protocol Stop: 01/17/22 03:26 Morphine Sulfate (Morphine Sulfate 2 Mg/Ml Cartridge) 1 mg IVPUSH Q4H PRN; Protocol PRN Reason: Pain, Severe (Pain Scale 7-10) Last Admin: 01/17/22 02:15 Dose: 1 mg Documented by: Senna (Sennosides 8.6 Mg Tablet) 17.2 mg PO BEDTIME PRN PRN Reason: Constipation Sodium Chloride (0.9 % Sodium Chloride Flush 3 Ml Syringe) 3 ml IVFLUSH QSHIFT [facility] Home Medications Medication Instructions Recorded Confirmed Last Taken Type clonazepam 1 mg tablet 1 tab PO DAILY 04/21/21 01/17/22 06/05/21 History gabapentin 600 mg tablet 1 tab PO TID 04/21/21 01/17/22 06/05/21 History mirtazapine 30 mg tablet 30 mg PO BEDTIME 04/21/21 07/06/21 06/05/21 History tramadol 50 mg tablet 1 tab PO DAILY 04/21/21 01/17/2221 History acetaminophen 500 mg tablet 1 tab PO BID PRN 06/06/21 01/17/22 06/05/21 History bictegravir 50 mg-emtricitabine 1 tab PO DAILY 06/06/21 01/17/22 06/05/21 History 200 mg-tenofovir alafenam 25 mg tablet (Biktarvy) albuterol sulfate 3 ml INHALATION TID PRN 06/19/21 01/17/22 Unknown History amlodipine 5 mg tablet 1 tab PO DAILY 06/19/21 01/17/22 Unknown History propranolol 120 mg capsule,24 1 cap PO DAILY 06/19/21 01/17/22 Unknown History hr,extended release diphenhydramine HCl 25 mg tablet 2 tab PO BEDTIME 01/17/22 01/17/22 Unknown History (Banophen) fluticasone propionate 110 1 puff INHALATION Q6-8H PRN 01/17/22 01/17/22 Unknown History mcg/actuation HFA aerosol inhaler (Flovent HFA) risperidone 1 mg tablet 1.5 tab PO BEDTIME 01/17/22 01/17/22 Unknown History Physical Exam Vital Signs and Narrative: Vital Signs: Last Vital Signs Temp 97.7 F 01/17/22 03:10 Pulse 84 01/17/22 03:10 Resp 20 01/17/22 03:10 BP 152/88 H 01/17/22 03:10 Pulse Ox 92 01/17/22 03:10 Oxygen Flow Rate 2 01/16/22 23:02 BMI result Body Mass Index 25.7 Gen: Appears be in no acute distress HEENT: NCAT, Moist mucosa. Pulmonary: coarse breath sounds, expiratory wheezing noted; on supplemental oxygen. Able to speak in full sentences. Chest pain reproducible. CVS: Normal S1-S2 Abdomen: BS+, Soft, Nontender Extremities: Warm well perfused Neuro: Alert and awake. Results Labs CBC and Chem 7: 01/16/22 23:44 01/16/22 23:44 Labs: Laboratory Results - last 24 hr 01/16/22 01/16/22 01/16/22 23:42 23:42 23:44 MCV 93.8 MCH 30.7 MCHC 32.8 RDW 13.9 Plt Count 168 MPV 10.7 Immature Gran % (Auto) 0.2 Neut % (Auto) 71.4 Lymph % (Auto) 9.9 L [place] % (Auto) 10.4 Eos % (Auto) 7.2 H Baso % (Auto) 0.9 Lymph # (Auto) 0.6 L [place] # (Auto) 0.7 Eos # (Auto) 0.5 H Baso # (Auto) 0.1 Abs Immat Gran (auto) 0.01 Absolute Neuts (auto) 4.6 Absolute Nucleated RBC 0.000 Nucleated RBC % (auto) 0.0 PT INR Anion Gap Estim Creat Clear Calc Estimated GFR Random Glucose Lactic Acid Calcium Total Bilirubin AST ALT Alkaline Phosphatase Troponin I High Sens Total Protein Albumin COVID-19 (TAMMIE) Negative COVID-19 Clin Com See Note Influenza Type A (KEVON) Negative Influenza Type B (KEVON) Negative Influenza A & B Note See Note 01/16/22 01/17/22 01/17/22 23:44 01:07 01:07 MCV MCH MCHC RDW Plt Count MPV Immature Gran % (Auto) Neut % (Auto) Lymph % (Auto) [place] % (Auto) Eos % (Auto) Baso % (Auto) Lymph # (Auto) [place] # (Auto) Eos # (Auto) Baso # (Auto) Abs Immat Gran (auto) Absolute Neuts (auto) Absolute Nucleated RBC Nucleated RBC % (auto) PT 13.0 INR 1.1 Anion Gap 11 L Estim Creat Clear Calc 65.0 Estimated GFR > 60 Random Glucose 104 Lactic Acid Calcium 8.7 D Total Bilirubin 0.3 AST 18 ALT 19 Alkaline Phosphatase 71 Troponin I High Sens 3.7 Total Protein 7.0 Albumin 4.0 COVID-19 (TAMMIE) COVID-19 Clin Com Influenza Type A (KEVON) Influenza Type B (KEVON) Influenza A & B Note 01/17/22 01:07 MCV MCH MCHC RDW Plt Count MPV Immature Gran % (Auto) Neut % (Auto) Lymph % (Auto) [place] % (Auto) Eos % (Auto) Baso % (Auto) Lymph # (Auto) [place] # (Auto) Eos # (Auto) Baso # (Auto) Abs Immat Gran (auto) Absolute Neuts (auto) Absolute Nucleated RBC Nucleated RBC % (auto) PT INR Anion Gap Estim Creat Clear Calc Estimated GFR Random Glucose Lactic Acid 1.3 Calcium Total Bilirubin AST ALT Alkaline Phosphatase Troponin I High Sens Total Protein Albumin COVID-19 (TAMMIE) COVID-19 Clin Com Influenza Type A (KEVON) Influenza Type B (KEVON) Influenza A & B Note Imaging Radiologist's Impressions: Impressions Chest X-Ray 01/17/22 00:25 IMPRESSION: No dense consolidation. Bronchial wall thickening can be seen with a small airways process such as asthma or atypical/viral infection. Assessment and Plan (1) Hypoxia: Status: Acute (2) Chest pain: Status: Acute (3) HIV (human immunodeficiency virus infection): Qualifiers: HIV symptom status: unspecified Qualified Code(s): B20 - Human immunodeficiency virus [HIV] disease Status: Acute Plan 56-year-old male with a past medical history of asthma, HIV, anxiety, depression, history of pleuritic chest pain, history of hep C, kidney stones, hemorrhoids, history of lung abscess in 2020; presented to the hospital today with a chief complaint of chest pain. chest pain: Atypical in nature. Reproducible. Troponin negative EKG nonischemic Telemetry Pain control Headaches: Exam nonfocal. Blood pressure is stable. Will obtain CT head. Neck is supple. Acute asthma exacerbation: Continue nebulizations standing and p.r.n. Decadron b.i.d. Atypical pneumonia: COVID-19, influenza negative Continue ceftriaxone azithromycin empirically. Will obtain urine Legionella and strep pneumo. ID consult Acute hypoxic respiratory failure: Patient currently requiring 6 L of nasal cannula oxygen. Speaking in full sentences. Likely in the setting of acute asthma exacerbation/atypical pneumonia. Patient empirically covered with ceftriaxone azithromycin Will consult pulmonology for further recommendations. D-dimer negative ( age adjusted) will obtain non contrast CT chest History of HIV: Continue home Biktarvy . patient reports he has been complaint with his home medication. Also mentions his last CD4 count was good and viral load undetectable. History of hypertension: Continue home amlodipine History of neuropathy: Continue home gabapentin History of anxiety / depression: Continue home clonazepam, risperidone. ? patient on mirtazapine. To be confirmed in a.m. with the PCP by day team. DVT prophylaxis: Lovenox Code status: Full code Quality Stroke Does the patient have a stroke diagnosis?: No VTE Prior VTE?: No VTE Risk Level:: Medical - moderate - high VTE Device Contraindication: Treatment Not Indicated VTE Drug Contraindication: N/A - Med Ordered
[2022-01-17 03:47] LABS: D Dimer High Sensitivity 233 NG/ML
[2022-01-17] MEDS: HYDROmorphone HCl 0.5 MG/0.5 ML SYRINGE IVPUSH (03:53)
[2022-01-17 05:07] LABS: Basophils Percent Auto 0.5 % (0-2); Eosinophils Absolute Auto 0.1 X10*3/uL (0.0-0.4); Eosinophils Percent Auto 0.7 % (0-4); Hematocrit 39.5 % (42.0-52.0); Imm Gran Abs Auto 0.02 X10*3/uL (0.00-0.03); Imm Gran Pct Auto 0.3 % (0.0-0.4); Lymphocytes Absolute Auto 0.3 X10*3/uL (1.2-4.9); Lymphocytes Percent Auto 3.5 % (20-40); MANUAL DIFF FLAG SCAN; Mean Corpuscular HGB Conc 32.9 g/dl (31.0-36.0); Mean Corpuscular Hemoglobin 30.7 pg (27.0-33.0); Mean Corpuscular Volume 93.2 fL (80.0-98.0); Mean Platelet Volume 11.1 fL (9.4-12.4); Monocytes Absolute Auto 0.2 X10*3/uL (0.1-1.2); Monocytes Percent Auto 2.4 % (2-11); Neutrophils Absolute Auto 6.9 x10*3/uL (2.0-8.3); Neutrophils Percent Auto 92.6 % (45-73); Platelet Count 172 X10*3/uL (160-400); Red Blood Count 4.24 X10*6/uL (4.60-5.80); Red Cell Distribution Width 13.8 % (11.0-16.0); SCAN SMEAR FLAG 1; White Blood Count 7.4 X10*3/uL (4.8-10.8)
[2022-01-17 05:09] LABS: SLIDE REVIEW VERIFIED
[2022-01-17 05:24] LABS: Anion Gap 14 (12-20); Blood Urea Nitrogen 10 mg/dL (9-16); Calcium 8.5 mg/dL (8.4-10.2); Carbon Dioxide 24 mmol/L (22-29); Chloride 105 mmol/L (96-108); Creatinine Clr Calc Pharmacy 72.1; Estimated Glomerular Filt Rate > 60; Glucose Random 157 mg/dL (60-115); Potassium 4.2 mmol/L (3.3-5.1); Sodium 139 mmol/L (135-145)
[2022-01-17] MEDS: Magnesium Sulfate/D5W 1 GM/100 ML PIGGYBACK IV (06:10)
[2022-01-17] MEDS: 0.9 % Sodium Chloride Flush 3 ML SYRINGE IVFLUSH ×2 (07:37→18:30)
[2022-01-17] MEDS: clonazePAM 1 MG TABLET PO ×2 (08:18→19:48)
[2022-01-17] MEDS: traMADoL HCL 50 MG TABLET PO (08:18)
[2022-01-17] MEDS: amLODIPine Besylate 5 MG TABLET PO (08:19)
[2022-01-17] MEDS: Gabapentin 600 MG TABLET PO ×3 (08:19→19:48)
[2022-01-17] MEDS: Bictegrav/Emtricit/Tenofov Ala TABLET 1 TAB PO (08:19)
[2022-01-17] MEDS: Propranolol HCL LA 60 MG CAP.SA.24H 120 MG PO (08:19)
[2022-01-17] MEDS: Enoxaparin Sodium 40 MG/0.4 ML SYRINGE SUBCUT (08:19)
[2022-01-17] MEDS: dexAMETHasone sod phosphate 4 MG/ML VIAL 6 MG IVPUSH ×2 (08:20→19:48)
[2022-01-17 08:41] LABS: Procalcitonin 0.03 ng/mL
--- NOTE | 2022-01-17 08:44 | PHA.MEDREC ---
Pharmacy Consult ? Medication Reconciliation Pharmacy has reviewed the medication reconciliation compelted by Lesia. The Flovent was enter incorrectly and should be BID instead of Q6H PRN. He take his benadryl PRN at bedtime and his clonazepam is taken at night. Patient reports he no longer has a nebulizer because it is broken. I added albuterol inhaler and mirtazepine to the medications list. Patient does not know what propranolol or risperidone is but each were recently filled per claim history and have been filled for a while now. Chelo Fung, PharmD
--- NOTE | 2022-01-17 09:45 | PC.NURSE ---
rn to rn given to maggie, pt aware of plan of care for transfer to overflow unit.
--- NOTE | 2022-01-17 10:57 | PC.NURSE ---
Pt w/ exp wheexes throughout on 10liters. Sats high 90s but RR in 30s. Pt was evaluaed by and an updraft treatment was ordered.
[2022-01-17] MEDS: Albuterol Sulfate (0.083%) 2.5 MG/3 ML VIAL.NEB 10 MG INHALE (11:08)
--- NOTE | 2022-01-17 13:56 | HO.PM.IMPN ---
Subjective Subjective Date of Service: 01/17/22 Interval History: This history was taken in [place] from the patient. C/o dyspnea, productive cough. No fever. Adherent with ARVs. Review of Systems Review of Systems: Yes all other systems are reviewed and are negative Physical Exam Vital Signs: Vital Signs: Last Vital Signs Temp 97.8 F 01/17/22 10:52 Pulse 69 01/17/22 11:11 Resp 28 H 01/17/22 11:11 BP 171/109 H 01/17/22 10:52 Pulse Ox 98 01/17/22 10:52 Oxygen Flow Rate 2 01/16/22 23:02 BMI result Body Mass Index 25.7 Gen: in moderate resp distres HEENT: sclera anicteric, moist mucus membranes Neck: supple Lungs: diffuse exp wheezing, tachypneic Heart: regular rate and rhythm, no murmurs Abd: soft, non-tender, non-distended Ext: no edema Skin: warm/well-perfused Neuro: alert and oriented x3, no focal findings Psych: appropriate affect Objective Data Active Medications Acetaminophen (Acetaminophen 325 Mg Tablet) 625 mg PO BID PRN PRN Reason: pain Albuterol Sulfate (Albuterol Sulfate (0.083%) 2.5 Mg/3 Ml Vial.Neb) 2.5 mg INHALE Q2H PRN PRN Reason: asthma Albuterol/Ipratropium (Albuterol/Iprat 2.5/0.5mg 3 Ml Ampul.Neb) 3 ml INHALE RQ4H WHILE AWAKE [facility] Last Admin: 01/17/22 11:13 Dose: Not Given Documented by: MIRTHA Non-Admin Reason: See Note Amlodipine Besylate (Amlodipine Besylate 5 Mg Tablet) 5 mg PO DAILY [facility]; Protocol Last Admin: 01/17/22 08:19 Dose: 5 mg Documented by: ARCHANA Azithromycin (Azithromycin 500 Mg Tablet) 500 mg PO Q24H [facility] Benzonatate (Benzonatate 100 Mg Capsule) 100 mg PO TID PRN PRN Reason: Cough Bictegravir/Emtricitabine/Tenofovir (Bictegrav/Emtricit/Tenofov Ala Tablet) 1 tab PO DAILY [facility] Last Admin: 01/17/22 08:19 Dose: 1 tab Documented by: ARCHANA Clonazepam (Clonazepam 1 Mg Tablet) 1 mg PO BEDTIME [facility] Dexamethasone Sodium Phosphate (Dexamethasone Sod Phosphate 4 Mg/Ml Vial) 6 mg IVPUSH BID [facility] Last Admin: 01/17/22 08:20 Dose: 6 mg Documented by: ARCHANA Diphenhydramine HCl (Diphenhydramine Hcl 25 Mg Tablet) 50 mg PO BEDTIME PRN PRN Reason: Insomnia Enoxaparin Sodium (Enoxaparin Sodium 40 Mg/0.4 Ml Syringe) 40 mg SUBCUT Q24H [facility] Last Admin: 01/17/22 08:19 Dose: 40 mg Documented by: ARCHANA Fluticasone Propionate (Fluticasone Propionate 100 Mcg Blst.W.Dev) 1 puff INHALE RBID [facility] Gabapentin (Gabapentin 600 Mg Tablet) 600 mg PO TID [facility] Last Admin: 01/17/22 08:19 Dose: 600 mg Documented by: ARCHANA Ceftriaxone Sodium 1 gm/ (Sodium Chloride) 50 mls @ 100 mls/hr IV Q24H [facility] Mirtazapine (Mirtazapine 30 Mg Tablet) 30 mg PO BEDTIME [facility] Morphine Sulfate (Morphine Sulfate 2 Mg/Ml Cartridge) 1 mg IVPUSH Q4H PRN; Protocol PRN Reason: Pain, Severe (Pain Scale 7-10) Last Admin: 01/17/22 08:20 Dose: 1 mg Documented by: ARCHANA Propranolol HCl (Propranolol Hcl La 60 Mg Cap.Sa.24h) 120 mg PO DAILY [facility]; Protocol Last Admin: 01/17/22 08:19 Dose: 120 mg Documented by: ARCHANA Risperidone (Risperidone 0.5 Mg Tablet) 1.5 mg PO BEDTIME [facility] Senna (Sennosides 8.6 Mg Tablet) 17.2 mg PO BEDTIME PRN PRN Reason: Constipation Sodium Chloride (0.9 % Sodium Chloride Flush 3 Ml Syringe) 3 ml IVFLUSH QSHIFT [facility] Last Admin: 01/17/22 07:37 Dose: 3 ml Documented by: ARCHANA Tramadol HCl (Tramadol Hcl 50 Mg Tablet) 50 mg PO DAILY [facility] Last Admin: 01/17/22 08:18 Dose: 50 mg Documented by: ARCHANA Labs CBC & Chem 7: 01/17/22 04:59 01/17/22 04:59 Labs: Laboratory Results - last 24 hr 01/16/22 01/16/22 01/16/22 23:42 23:42 23:44 MCV 93.8 MCH 30.7 MCHC 32.8 RDW 13.9 Plt Count 168 MPV 10.7 Immature Gran % (Auto) 0.2 Neut % (Auto) 71.4 Lymph % (Auto) 9.9 L [place] % (Auto) 10.4 Eos % (Auto) 7.2 H Baso % (Auto) 0.9 Lymph # (Auto) 0.6 L [place] # (Auto) 0.7 Eos # (Auto) 0.5 H Baso # (Auto) 0.1 Abs Immat Gran (auto) 0.01 Absolute Neuts (auto) 4.6 Absolute Nucleated RBC 0.000 Nucleated RBC % (auto) 0.0 Smear Tech's Comments PT INR D-Dimer High Sensitivty Anion Gap Estim Creat Clear Calc Estimated GFR Random Glucose Lactic Acid Calcium Total Bilirubin AST ALT Alkaline Phosphatase Troponin I High Sens Total Protein Albumin Procalcitonin COVID-19 (TAMMIE) Negative COVID-19 Clin Com See Note Influenza Type A (KEVON) Negative Influenza Type B (KEVON) Negative Influenza A & B Note See Note 01/16/22 01/17/22 01/17/22 23:44 01:07 01:07 MCV MCH MCHC RDW Plt Count MPV Immature Gran % (Auto) Neut % (Auto) Lymph % (Auto) [place] % (Auto) Eos % (Auto) Baso % (Auto) Lymph # (Auto) [place] # (Auto) Eos # (Auto) Baso # (Auto) Abs Immat Gran (auto) Absolute Neuts (auto) Absolute Nucleated RBC Nucleated RBC % (auto) Smear Tech's Comments PT 13.0 INR 1.1 D-Dimer High Sensitivty 233 Anion Gap 11 L Estim Creat Clear Calc 65.0 Estimated GFR > 60 Random Glucose 104 Lactic Acid Calcium 8.7 D Total Bilirubin 0.3 AST 18 ALT 19 Alkaline Phosphatase 71 Troponin I High Sens 3.7 Total Protein 7.0 Albumin 4.0 Procalcitonin COVID-19 (TAMMIE) COVID-19 Clin Com Influenza Type A (KEVON) Influenza Type B (KEVON) Influenza A & B Note 01/17/22 01/17/22 01/17/22 01:07 04:59 04:59 MCV 93.2 MCH 30.7 MCHC 32.9 RDW 13.8 Plt Count 172 MPV 11.1 Immature Gran % (Auto) 0.3 Neut % (Auto) 92.6 H Lymph % (Auto) 3.5 L [place] % (Auto) 2.4 Eos % (Auto) 0.7 Baso % (Auto) 0.5 Lymph # (Auto) 0.3 L [place] # (Auto) 0.2 Eos # (Auto) 0.1 Baso # (Auto) 0.0 Abs Immat Gran (auto) 0.02 Absolute Neuts (auto) 6.9 Absolute Nucleated RBC 0.000 Nucleated RBC % (auto) 0.0 Smear Tech's Comments VERIFIED PT INR D-Dimer High Sensitivty Anion Gap 14 Estim Creat Clear Calc 72.1 Estimated GFR > 60 Random Glucose 157 H D Lactic Acid 1.3 Calcium 8.5 Total Bilirubin AST ALT Alkaline Phosphatase Troponin I High Sens Total Protein Albumin Procalcitonin COVID-19 (TAMMIE) COVID-19 Clin Com Influenza Type A (KEVON) Influenza Type B (KEVON) Influenza A & B Note 01/17/22 04:59 MCV MCH MCHC RDW Plt Count MPV Immature Gran % (Auto) Neut % (Auto) Lymph % (Auto) [place] % (Auto) Eos % (Auto) Baso % (Auto) Lymph # (Auto) [place] # (Auto) Eos # (Auto) Baso # (Auto) Abs Immat Gran (auto) Absolute Neuts (auto) Absolute Nucleated RBC Nucleated RBC % (auto) Smear Tech's Comments PT INR D-Dimer High Sensitivty Anion Gap Estim Creat Clear Calc Estimated GFR Random Glucose Lactic Acid Calcium Total Bilirubin AST ALT Alkaline Phosphatase Troponin I High Sens Total Protein Albumin Procalcitonin 0.03 COVID-19 (TAMMIE) COVID-19 Clin Com Influenza Type A (KEVON) Influenza Type B (KEVON) Influenza A & B Note Assessment and Plan (1) Asthma with exacerbation: Status: Acute (2) Hypoxia: Status: Acute Plan hospital d#1 56yo M with asthma, HIV, prior lung abscess (Jun 2021) presenting with chest pain, admitted for hypoxia/asthma exacerbation/atypical PNA # acute hypoxic resp failure - wean O2 as tolerated # asthma exacerbation, acute - steroids, scheduled/prn nebs # atypical PNA - ceftriaxone + azithromycin d#1, urine antigens for Legionella + pneumococcus pending, ID consult pending. RSV/flu/Covid-19 negative # chest pain - reproducible with palpation, suspect MSK related to coughing, 2nd trponin pending, EKG without ischemia # RIVERS - resolved, CT head normal # HIV - continue Biktarvy. last CD4 821 05/04/21. pt states last viral load fully suppressed. followed by Dr Street in [place]. # HTN - continue amlodipine + propranolol # neuropathy - continue gabapentin # mood disorder - continue clonazepam, risperidone, mirtazapine # VTE ppx - LMWH In my clinical judgment, the patient requires continued hospitalization for the following reasons: hypoxic respiratory failure Quality Stroke Does the patient have a stroke diagnosis?: No VTE Prior VTE?: No VTE Risk Level:: Medical - moderate - high VTE Device Contraindication: Treatment Not Indicated VTE Drug Contraindication: N/A - Med Ordered
--- NOTE | 2022-01-17 13:56 | W.PM.IDCN ---
History of Present Illness Data of Consult Service Date: 01/17/22 Requesting physician: Timi Muñiz Primary Care Provider: MD NAHID Ma Reason for consult: shortness of breath He presents to hospital with cough and shortness of breath for last three to four days. He has no chills. He has HIV and has had suppressed viral load and CD4 has been elevated. Review of Systems Review of Systems: Yes all other systems are reviewed and are negative PMFSH Past Medical History Medical History Asthma Depression Hemorrhoids Hepatitis C HIV (human immunodeficiency virus infection) Kidney stones Pleuritic chest pain Pneumonia Substance abuse Family History Family history: reviewed and not pertinent Surgical History Surgical History H/O hemorrhoidectomy Social History Social History Household Members: None Housing: Apartment Do you presently have visiting nurse or other home services: Yes (clinical services consultant and vna) Alcohol intake: never Patient Tobacco Use Status: Never used Tobacco Second Hand Smoke Exposure: No Advance Directives: Yes Advance Directives on File: Yes Advance Directives Date on File: 04/25/21 service: No Current occupational status: disabled Meds Allergies Allergy/AdvReac Type Severity Reaction Status Date / Time codeine Allergy Mild RASH Verified 08/17/21 13:16 [From Tylenol-Codeine #3] levofloxacin [From LEVAQUIN] Allergy Mild Rash Verified 08/17/21 13:16 metoclopramide [From Reglan] Allergy Mild RASH Verified 08/17/21 13:16 acetaminophen Allergy Unknown Unknown Verified 08/17/21 13:16 [Tylenol-Codeine #3] Motrin Allergy Unknown REflux Verified 08/17/21 13:16 Penicillins [PENICILLINS] Allergy Unknown RASH Verified 08/17/21 13:16 tramadol [From Ultram] AdvReac Mild N/V Verified 08/17/21 13:16 SEASONAL ALLERGIES Allergy Intermediate EYE Uncoded 06/06/21 16:07 DRAINAGE penicillin Allergy Unknown Unknown Uncoded 06/06/21 16:07 Active Medications: Current Medications Acetaminophen (Acetaminophen 325 Mg Tablet) 625 mg PO BID PRN PRN Reason: pain Albuterol Sulfate (Albuterol Sulfate (0.083%) 2.5 Mg/3 Ml Vial.Neb) 2.5 mg INHALE Q2H PRN PRN Reason: asthma Albuterol/Ipratropium (Albuterol/Iprat 2.5/0.5mg 3 Ml Ampul.Neb) 3 ml INHALE RQ4H WHILE AWAKE [facility] Last Admin: 01/17/22 11:13 Dose: Not Given Documented by: Amlodipine Besylate (Amlodipine Besylate 5 Mg Tablet) 5 mg PO DAILY [facility]; Protocol Last Admin: 01/17/22 08:19 Dose: 5 mg Documented by: Azithromycin (Azithromycin 500 Mg Tablet) 500 mg PO Q24H [facility] Benzonatate (Benzonatate 100 Mg Capsule) 100 mg PO TID PRN PRN Reason: Cough Bictegravir/Emtricitabine/Tenofovir (Bictegrav/Emtricit/Tenofov Ala Tablet) 1 tab PO DAILY [facility] Last Admin: 01/17/22 08:19 Dose: 1 tab Documented by: Clonazepam (Clonazepam 1 Mg Tablet) 1 mg PO BEDTIME [facility] Dexamethasone Sodium Phosphate (Dexamethasone Sod Phosphate 4 Mg/Ml Vial) 6 mg IVPUSH BID [facility] Last Admin: 01/17/22 08:20 Dose: 6 mg Documented by: Diphenhydramine HCl (Diphenhydramine Hcl 25 Mg Tablet) 50 mg PO BEDTIME PRN PRN Reason: Insomnia Enoxaparin Sodium (Enoxaparin Sodium 40 Mg/0.4 Ml Syringe) 40 mg SUBCUT Q24H [facility] Last Admin: 01/17/22 08:19 Dose: 40 mg Documented by: Fluticasone Propionate (Fluticasone Propionate 100 Mcg Blst.W.Dev) 1 puff INHALE RBID [facility] Gabapentin (Gabapentin 600 Mg Tablet) 600 mg PO TID [facility] Last Admin: 01/17/22 08:19 Dose: 600 mg Documented by: Ceftriaxone Sodium 1 gm/ (Sodium Chloride) 50 mls @ 100 mls/hr IV Q24H [facility] Mirtazapine (Mirtazapine 30 Mg Tablet) 30 mg PO BEDTIME [facility] Morphine Sulfate (Morphine Sulfate 2 Mg/Ml Cartridge) 1 mg IVPUSH Q4H PRN; Protocol PRN Reason: Pain, Severe (Pain Scale 7-10) Last Admin: 01/17/22 08:20 Dose: 1 mg Documented by: Propranolol HCl (Propranolol Hcl La 60 Mg Cap.Sa.24h) 120 mg PO DAILY [facility]; Protocol Last Admin: 01/17/22 08:19 Dose: 120 mg Documented by: Risperidone (Risperidone 0.5 Mg Tablet) 1.5 mg PO BEDTIME [facility] Senna (Sennosides 8.6 Mg Tablet) 17.2 mg PO BEDTIME PRN PRN Reason: Constipation Sodium Chloride (0.9 % Sodium Chloride Flush 3 Ml Syringe) 3 ml IVFLUSH QSHIFT [facility] Last Admin: 01/17/22 07:37 Dose: 3 ml Documented by: Tramadol HCl (Tramadol Hcl 50 Mg Tablet) 50 mg PO DAILY [facility] Last Admin: 01/17/22 08:18 Dose: 50 mg Documented by: Home Medications Medication Instructions Recorded Confirmed Last Taken Type clonazepam 1 mg tablet 1 tab PO BEDTIME 04/21/21 01/17/22 06/05/21 History gabapentin 600 mg tablet 1 tab PO TID 04/21/21 01/17/22 06/05/21 History tramadol 50 mg tablet 1 tab PO DAILY 04/21/21 01/17/22 06/05/21 History acetaminophen 500 mg tablet 1 tab PO BID PRN 06/06/21 01/17/22 06/05/21 History bictegravir 50 mg-emtricitabine 1 tab PO DAILY 06/06/21 01/17/22 06/05/21 History 200 mg-tenofovir alafenam 25 mg tablet (Biktarvy) amlodipine 5 mg tablet 1 tab PO DAILY 06/19/21 01/17/22 Unknown History propranolol 120 mg capsule,24 1 cap PO DAILY 06/19/21 01/17/22 Unknown History hr,extended release albuterol sulfate 90 mcg/actuation 2 puff PO Q4-6H PRN 01/17/22 01/17/22 Unknown History aerosol inhaler diphenhydramine HCl 25 mg tablet 2 tab PO BEDTIME PRN 01/17/22 01/17/22 Unknown History (Banophen) fluticasone propionate 110 1 puff INHALATION BID 01/17/22 01/17/22 Unknown History mcg/actuation HFA aerosol inhaler (Flovent HFA) mirtazapine 30 mg tablet 1 tab PO BEDTIME 01/17/22 01/17/22 Unknown History risperidone 1 mg tablet 1.5 tab PO BEDTIME 01/17/22 01/17/22 Unknown History Physical Exam Vital Signs: Vital Signs: Last Vital Signs Temp 97.8 F 01/17/22 10:52 Pulse 69 01/17/22 11:11 Resp 28 H 01/17/22 11:11 BP 171/109 H 01/17/22 10:52 Pulse Ox 98 01/17/22 10:52 Oxygen Flow Rate 2 01/16/22 23:02 BMI result Body Mass Index 25.7 Const: General: cooperative HEENT: Head: Yes normal to inspection Resp: Effort & Inspection: audible wheezes Cardio: Rate: regular rate Rhythm: regular rhythm GI: Palpation (GI): Soft to palpation and nontender Skin: General skin exam: no rashes or lesions noted Extrem: General: Yes normal to inspection Results Labs CBC & Chem 7: 01/17/22 04:59 01/17/22 04:59 Labs: Short CBC 01/16/22 01/17/22 Range/Units 23:44 04:59 WBC 6.4 7.4 (4.8-10.8) X10*3/uL Hgb 13.3 L 13.0 L (14.0-18.0) g/dl Hct 40.6 L 39.5 L (42.0-52.0) % Plt Count 168 172 (160-400) X10*3/uL BMP 01/16/22 01/17/22 23:44 04:59 Sodium 139 139 Potassium 4.1 4.2 Chloride 103 105 Carbon Dioxide 29 24 BUN 12 10 Creatinine 1.13 1.02 Calcium 8.7 D 8.5 Liver Function 01/16/22 Range/Units 23:44 Total Bilirubin 0.3 (0.0-1.0) mg/dL AST 18 (5-37) U/L ALT 19 (0-40) U/L Alkaline Phosphatase 71 (39-117) U/L Albumin 4.0 (3.5-5.0) g/dL Assessment and Plan (1) Asthma with exacerbation: Status: Acute (2) HIV (human immunodeficiency virus infection): Qualifiers: HIV symptom status: unspecified Qualified Code(s): B20 - Human immunodeficiency virus [HIV] disease Status: Acute He has probable asthma exacerbation with possible early CAP strep pneumonia concern as well as atypical,hflu I dont expect any opportunistic infections at this time and only limited basilar disease Plan Ceftriaxone and Zmax cover CAP. When improved po Ceftin and Zmax total 7 days
[2022-01-17 14:41] LABS: Troponin-I High Sensitivity < 3.5 ng/L (<3.5-35.0)
--- NOTE | 2022-01-17 14:56 | MHC.CM.PN ---
MET WITH PT IN ED OVERFLOW PT LIVES ALONE HAS [employer]PER[employer] SERVICES 15.25 SERVCEIS A WEEK DAYTIME HRS HE IS VAX X 3 WILL ARRANGE OWN TRANSPORTAION HOME PCP IS DR NEVA Rucker [facility]
--- NOTE | 2022-01-17 17:04 | P.CONPL_ITS ---
History of Present Illness History of Present Illness Consult date: 01/17/22 Reason for consult: cough, chest pain, asthma and other (HYPOXEMIA) Chief complaint: Hypoxia Narrative: THIS 56 YEARS OLD GENTLEMAN WAS SEEN BY ME THIS MORNING FOR PULMONARY EVALUATION. He presented to the emergency room during the night with shortness of breath and chest pain. The chest pain is mostly in the center, and increased with cough or local pressure. His cough is mostly dry and nonproductive. He has no fever or chills. When he presented to the emergency room O2 sats were be did below 90 % and he has been started on oxygen supplementation which makes him feel better. At the time of my examination his pain was minimal and he did not seem to be in any discomfort. Past medical history includes a history of HIV which is controlled with meds, bronchial asthma, treated for lung abscess in 2020. And has history of pleuritic chest pain. [facility] is reviewed. Patient is nonsmoker and nondrinker. Review of Systems Review of Systems: All systems are reviewed. Main symptom at this time is shortness of breath, chest discomfort, general weakness. All other systems not contributery. [facility] Past Medical History Medical History Asthma Depression Hemorrhoids Hepatitis C HIV (human immunodeficiency virus infection) Kidney stones Pleuritic chest pain Pneumonia Substance abuse Family History Family history: reviewed and not pertinent Surgical History Surgical History H/O hemorrhoidectomy Social History Social History Household Members: None Housing: Apartment Do you presently have visiting nurse or other home services: Yes (dental claims processor and vna) Alcohol intake: never Patient Tobacco Use Status: Never used Tobacco Second Hand Smoke Exposure: No Advance Directives: Yes Advance Directives on File: Yes Advance Directives Date on File: 04/25/21 service: No Current occupational status: disabled Meds Allergies Allergy/AdvReac Type Severity Reaction Status Date / Time codeine Allergy Mild RASH Verified 08/17/21 13:16 [From Tylenol-Codeine #3] levofloxacin [From LEVAQUIN] Allergy Mild Rash Verified 08/17/21 13:16 metoclopramide [From Reglan] Allergy Mild RASH Verified 08/17/21 13:16 acetaminophen Allergy Unknown Unknown Verified 08/17/21 13:16 [Tylenol-Codeine #3] Motrin Allergy Unknown REflux Verified 08/17/21 13:16 Penicillins [PENICILLINS] Allergy Unknown RASH Verified 08/17/21 13:16 tramadol [From Ultram] AdvReac Mild N/V Verified 08/17/21 13:16 SEASONAL ALLERGIES Allergy Intermediate EYE Uncoded 06/06/21 16:07 DRAINAGE penicillin Allergy Unknown Unknown Uncoded 06/06/21 16:07 Active Medications: Current Medications Acetaminophen (Acetaminophen 325 Mg Tablet) 625 mg PO BID PRN PRN Reason: pain Albuterol Sulfate (Albuterol Sulfate (0.083%) 2.5 Mg/3 Ml Vial.Neb) 2.5 mg INHALE Q2H PRN PRN Reason: asthma Albuterol/Ipratropium (Albuterol/Iprat 2.5/0.5mg 3 Ml Ampul.Neb) 3 ml INHALE RQ4H WHILE AWAKE [facility] Last Admin: 01/17/22 11:13 Dose: Not Given Documented by: Amlodipine Besylate (Amlodipine Besylate 5 Mg Tablet) 5 mg PO DAILY [facility]; Protocol Last Admin: 01/17/22 08:19 Dose: 5 mg Documented by: Azithromycin (Azithromycin 500 Mg Tablet) 500 mg PO Q24H [facility] Benzonatate (Benzonatate 100 Mg Capsule) 100 mg PO TID PRN PRN Reason: Cough Bictegravir/Emtricitabine/Tenofovir (Bictegrav/Emtricit/Tenofov Ala Tablet) 1 tab PO DAILY [facility] Last Admin: 01/17/22 08:19 Dose: 1 tab Documented by: Clonazepam (Clonazepam 1 Mg Tablet) 1 mg PO BEDTIME [facility] Dexamethasone Sodium Phosphate (Dexamethasone Sod Phosphate 4 Mg/Ml Vial) 6 mg IVPUSH BID [facility] Last Admin: 01/17/22 08:20 Dose: 6 mg Documented by: Diphenhydramine HCl (Diphenhydramine Hcl 25 Mg Tablet) 50 mg PO BEDTIME PRN PRN Reason: Insomnia Enoxaparin Sodium (Enoxaparin Sodium 40 Mg/0.4 Ml Syringe) 40 mg SUBCUT Q24H [facility] Last Admin: 01/17/22 08:19 Dose: 40 mg Documented by: Fluticasone Propionate (Fluticasone Propionate 100 Mcg Blst.W.Dev) 1 puff INHALE RBID [facility] Gabapentin (Gabapentin 600 Mg Tablet) 600 mg PO TID [facility] Last Admin: 01/17/22 14:28 Dose: 600 mg Documented by: Ceftriaxone Sodium 1 gm/ (Sodium Chloride) 50 mls @ 100 mls/hr IV Q24H [facility] Mirtazapine (Mirtazapine 30 Mg Tablet) 30 mg PO BEDTIME [facility] Morphine Sulfate (Morphine Sulfate 2 Mg/Ml Cartridge) 1 mg IVPUSH Q4H PRN; Protocol PRN Reason: Pain, Severe (Pain Scale 7-10) Last Admin: 01/17/22 08:20 Dose: 1 mg Documented by: Propranolol HCl (Propranolol Hcl La 60 Mg Cap.Sa.24h) 120 mg PO DAILY [facility]; Protocol Last Admin: 01/17/22 08:19 Dose: 120 mg Documented by: Risperidone (Risperidone 0.5 Mg Tablet) 1.5 mg PO BEDTIME [facility] Senna (Sennosides 8.6 Mg Tablet) 17.2 mg PO BEDTIME PRN PRN Reason: Constipation Sodium Chloride (0.9 % Sodium Chloride Flush 3 Ml Syringe) 3 ml IVFLUSH QSHIFT [facility] Last Admin: 01/17/22 07:37 Dose: 3 ml Documented by: Tramadol HCl (Tramadol Hcl 50 Mg Tablet) 50 mg PO DAILY [facility] Last Admin: 01/17/22 08:18 Dose: 50 mg Documented by: Home Medications Medication Instructions Recorded Confirmed Last Taken Type clonazepam 1 mg tablet 1 tab PO BEDTIME 04/21/21 01/17/22 06/05/21 History gabapentin 600 mg tablet 1 tab PO TID 04/21/21 01/17/22 06/05/21 History tramadol 50 mg tablet 1 tab PO DAILY 04/21/21 01/17/22 06/05/21 History acetaminophen 500 mg tablet 1 tab PO BID PRN 06/06/21 01/17/22 06/05/21 History bictegravir 50 mg-emtricitabine 1 tab PO DAILY 06/06/21 01/17/22 06/05/21 History 200 mg-tenofovir alafenam 25 mg tablet (Biktarvy) amlodipine 5 mg tablet 1 tab PO DAILY 06/19/21 01/17/22 Unknown History propranolol 120 mg capsule,24 1 cap PO DAILY 06/19/21 01/17/22 Unknown History hr,extended release albuterol sulfate 90 mcg/actuation 2 puff PO Q4-6H PRN 01/17/22 01/17/22 Unknown History aerosol inhaler diphenhydramine HCl 25 mg tablet 2 tab PO BEDTIME PRN 01/17/22 01/17/22 Unknown History (Banophen) fluticasone propionate 110 1 puff INHALATION BID 01/17/22 01/17/22 Unknown History mcg/actuation HFA aerosol inhaler (Flovent HFA) mirtazapine 30 mg tablet 1 tab PO BEDTIME 01/17/22 01/17/22 Unknown History risperidone 1 mg tablet 1.5 tab PO BEDTIME 01/17/22 01/17/22 Unknown History Physical Exam Vital Signs: Vital Signs: Last Vital Signs Temp 98.7 F 01/17/22 15:34 Pulse 58 01/17/22 15:34 Resp 19 01/17/22 15:34 BP 141/90 H 01/17/22 15:34 Pulse Ox 94 01/17/22 15:34 Oxygen Flow Rate 2 01/16/22 23:02 BMI result Body Mass Index 25.7 Const: General: comfortable, no acute distress, alert and awake Orientation/consciousness: patient oriented x3 HEENT: Head: Yes normal to inspection General nose exam: No nasal polyps present and No nasal discharge present Face and sinus: Yes sinuses nontender Mouth: oropharynx normal Throat: Yes posterior oropharynx normal Eyes: General: appearance normal, both eyes and all related structures Neck: Neck: Yes normal visual inspection, Yes no lymphadenopathy, Yes trachea midline and Yes no JVD Thyroid: Thyroid normal Chest: Chest palpation & inspection: normal inspection of the chest, normal p alpation of entire chest wall and no tenderness Resp: Other: Percussion note resonant,, breath sounds are slightly distant but equal on both sides, I do not hear any wheezes or crepitations . Cardio: Palpation: normal PMI Rate: regular rate Rhythm: regular rhythm Heart sounds: no gallops and no murmurs Peripheral pulses: Peripheral pulses 2+ throughout GI: Palpation (GI): Soft to palpation, nontender, No hepatosplenomegaly present and no masses Auscultation: normal bowel sounds Back/Spine/Pelvis: Thoracic/Lumbar Spine: thoracic and lumbar spine normal to inspection Skin: General skin exam: no rashes or lesions noted Neuro: General: patient oriented x3 and no focal motor deficits Cranial nerves: Yes CN's II-XII intact bilaterally Extrem: General: Yes normal to inspection, Yes no clubbing, cyanosis or edema and Yes no calf tenderness Psych: Appearance: grossly normal and well kempt Speech and movement: Normal speech and movement present Results Laboratory Findings CBC and BMP: 01/17/22 04:59 01/17/22 04:59 ABG, PT/INR, D-dimer: PT/INR, D-dimer PT 13.0 SEC (9.9-13.0) 01/17/22 01:07 INR 1.1 (0.9-1.1) 01/17/22 01:07 Abnormal lab findings: Abnormal Labs 01/16/22 01/16/22 01/17/22 23:44 23:44 04:59 RBC 4.33 L 4.24 L Hgb 13.3 L 13.0 L Hct 40.6 L 39.5 L Neut % (Auto) 92.6 H Lymph % (Auto) 9.9 L 3.5 L Eos % (Auto) 7.2 H Lymph # (Auto) 0.6 L 0.3 L Eos # (Auto) 0.5 H Anion Gap 11 L Random Glucose 01/17/22 04:59 RBC Hgb Hct Neut % (Auto) Lymph % (Auto) Eos % (Auto) Lymph # (Auto) Eos # (Auto) Anion Gap Random Glucose 157 H D Diagnostic Findings Chest x-ray: report reviewed and image reviewed CT scan - chest: report reviewed and image reviewed Assessment and Plan (1) Asthma with exacerbation: Status: Acute (2) Chest pain: Status: Acute (3) Hypoxia: Status: Acute Plan THIS PATIENT MOST LIKELY IS SUFFERING FROM ACUTE EXACERBATION OF BRONCHIAL ASTHMA. HYPOXEMIA SECONDARY TO WE Q ABNORMALITY. HE PROBABLY DOES HAVE BIBASILAR ATELECTASIS, THE CHEST PAIN IS NONSPECIFIC. RECC : SHORT COURSE OF STEROIDS , CAN BE CHANGED TO PREDNISONE 40 MG A DAY SOON HE FEELS BETTER. ALBUTEROL BY UPDRAFT Q 4 HOURS P.R.N.. HAS BEEN STARTED ON ANTIBIOTIC, WE CAN COMPLETE ITS COURSE. BUT JUST FOR 5 DAYS. WEAN OFF OXYGEN LONG O2 SAT REMAINS ABOVE 90%. HE WOULD NEED EVALUATION FOR BRONCHIAL ASTHMA, BY COMPLETE PULMONARY FUNCTION TESTING, OUTPATIENT. Procedures Date of Service Date of Service: 01/17/22
[2022-01-17] MEDS: Acetaminophen 325 MG TABLET 625 MG PO (18:31)
[2022-01-17] MEDS: risperiDONE 0.5 MG TABLET 1.5 MG PO (19:48)
[2022-01-17] MEDS: Mirtazapine 30 MG TABLET PO (19:48)
[2022-01-18] VITALS (11 sets, daily range): BP systolic 120–145; BP diastolic 78–96; PULSE 49–89; RESP 15–22; TEMP 36.6–36.8; O2SAT 92–99; BMI 25.4
[2022-01-18] MEDS: 0.9 % Sodium Chloride Flush 3 ML SYRINGE IVFLUSH ×3 (01:07→20:32)
[2022-01-18] MEDS: cefTRIAXone sodium 1 GM in 0.9 % Sodium Chloride 50 ML IV (01:17)
[2022-01-18] MEDS: Azithromycin 500 MG TABLET PO (01:18)
[2022-01-18 04:56] LABS: Hemoglobin 13.8 g/dl (14.0-18.0); Mean Corpuscular HGB Conc 32.9 g/dl (31.0-36.0); Mean Corpuscular Hemoglobin 30.4 pg (27.0-33.0); Mean Corpuscular Volume 92.5 fL (80.0-98.0); Mean Platelet Volume 11.2 fL (9.4-12.4); Platelet Count 205 X10*3/uL (160-400); Red Blood Count 4.54 X10*6/uL (4.60-5.80); Red Cell Distribution Width 14.1 % (11.0-16.0); White Blood Count 7.9 X10*3/uL (4.8-10.8)
[2022-01-18 05:00] LABS: Venous Blood Gas Refer to POC result
[2022-01-18 05:01] LABS: VBG Base Excess 3.8 mmol/L; VBG HCO3 26 mmol/L (22-26); VBG pCO2 35 mmHg; VBG pH 7.48 (7.32-7.43); VBG pO2 78 mmHg
[2022-01-18] MEDS: Morphine Sulfate 2 MG/ML CARTRIDGE 1 MG IVPUSH ×4 (05:10→22:31)
--- NOTE | 2022-01-18 06:37 | PC.NURSE ---
NAPPING INTERMITTANTLY OVERNIGHT....ALERT..ORIENTED X3...O2 9-10 L/M VIA FACE MASK...SAO2 91-98% DEPENDING HOW RECENTLY ENCOURAGED TO DEEP BREATHE/COUGH...HARSH COUGH THIS AM..C/O CHEST PAIN WITH COUGH..REQUESTED/RECEIVED PRN MORPHINE WITH RELIEF...STANDS TO VOID WITH STEADY GAIT..NSR/S.MARLY HR 50'S-70'S....CURRENTLY DOZING
[2022-01-18] MEDS: dexAMETHasone sod phosphate 4 MG/ML VIAL 6 MG IVPUSH ×2 (08:06→20:28)
[2022-01-18] MEDS: Enoxaparin Sodium 40 MG/0.4 ML SYRINGE SUBCUT (08:07)
[2022-01-18] MEDS: Gabapentin 600 MG TABLET PO ×3 (08:07→20:27)
[2022-01-18] MEDS: traMADoL HCL 50 MG TABLET PO (08:07)
[2022-01-18] MEDS: Propranolol HCL LA 60 MG CAP.SA.24H 120 MG PO (08:07)
[2022-01-18] MEDS: Bictegrav/Emtricit/Tenofov Ala TABLET 1 TAB PO (08:08)
[2022-01-18] MEDS: amLODIPine Besylate 5 MG TABLET PO (08:08)
[2022-01-18] MEDS: Albuterol/Iprat 2.5/0.5MG 3 ML AMPUL.NEB INHALE ×4 (08:16→20:26)
[2022-01-18 08:26] LABS: Anion Gap 15 (12-20); Blood Urea Nitrogen 15 mg/dL (9-16); Calcium 9.4 mg/dL (8.4-10.2); Carbon Dioxide 25 mmol/L (22-29); Chloride 104 mmol/L (96-108); Creatinine Clr Calc Pharmacy 90.7; Estimated Glomerular Filt Rate > 60; Glucose Random 125 mg/dL (60-115); Potassium 4.5 mmol/L (3.3-5.1); Sodium 139 mmol/L (135-145)
--- NOTE | 2022-01-18 11:52 | P.PNIM_ITS ---
Subjective Subjective Date of Service: 01/18/22 Interval History: Cough + wheeze improved, still on O2 9L via simple face mask No fever Review of Systems Review of Systems: Yes all other systems are reviewed and are negative Physical Exam Vital Signs: Vital Signs: Last Vital Signs Temp 97.8 F 01/18/22 07:43 Pulse 62 01/18/22 08:17 Resp 20 01/18/22 08:17 BP 120/80 01/18/22 07:43 Pulse Ox 97 01/18/22 07:43 Oxygen Flow Rate 2 01/16/22 23:02 BMI result Body Mass Index 25.7 Gen: no acute distress HEENT: sclera anicteric, moist mucus membranes Neck: supple Lungs: scattered expiratory wheezing Heart: regular rate and rhythm, no murmurs Abd: soft, non-tender, non-distended Ext: no edema Skin: warm/well-perfused Neuro: alert and oriented x3, no focal findings Psych: appropriate affect Objective Data Active Medications Acetaminophen (Acetaminophen 325 Mg Tablet) 625 mg PO BID PRN PRN Reason: pain Last Admin: 01/17/22 18:31 Dose: 625 mg Documented by: CHANTELLE Albuterol Sulfate (Albuterol Sulfate (0.083%) 2.5 Mg/3 Ml Vial.Neb) 2.5 mg INHALE Q2H PRN PRN Reason: asthma Albuterol/Ipratropium (Albuterol/Iprat 2.5/0.5mg 3 Ml Ampul.Neb) 3 ml INHALE RQ4H WHILE AWAKE [facility] Last Admin: 01/18/22 08:16 Dose: 3 ml Documented by: FRANCISCO Amlodipine Besylate (Amlodipine Besylate 5 Mg Tablet) 5 mg PO DAILY [facility]; Protocol Last Admin: 01/18/22 08:08 Dose: 5 mg Documented by: QUENTIN Azithromycin (Azithromycin 500 Mg Tablet) 500 mg PO Q24H [facility] Last Admin: 01/18/22 01:18 Dose: 500 mg Documented by: CRISTINE Benzonatate (Benzonatate 100 Mg Capsule) 100 mg PO TID PRN PRN Reason: Cough Bictegravir/Emtricitabine/Tenofovir (Bictegrav/Emtricit/Tenofov Ala Tablet) 1 tab PO DAILY [facility] Last Admin: 01/18/22 08:08 Dose: 1 tab Documented by: QUENTIN Clonazepam (Clonazepam 1 Mg Tablet) 1 mg PO BEDTIME [facility] Last Admin: 01/17/22 19:48 Dose: 1 mg Documented by: KIANA Dexamethasone Sodium Phosphate (Dexamethasone Sod Phosphate 4 Mg/Ml Vial) 6 mg IVPUSH BID [facility] Last Admin: 01/18/22 08:06 Dose: 6 mg Documented by: QUENTIN Comments: Diphenhydramine HCl (Diphenhydramine Hcl 25 Mg Tablet) 50 mg PO BEDTIME PRN PRN Reason: Insomnia Enoxaparin Sodium (Enoxaparin Sodium 40 Mg/0.4 Ml Syringe) 40 mg SUBCUT Q24H [facility] Last Admin: 01/18/22 08:07 Dose: 40 mg Documented by: QUENTIN Fluticasone Propionate (Fluticasone Propionate 100 Mcg Blst.W.Dev) 1 puff INHALE RBID [facility] Last Admin: 01/18/22 08:42 Dose: Not Given Documented by: FRANCISCO Non-Admin Reason: Med Not Available Gabapentin (Gabapentin 600 Mg Tablet) 600 mg PO TID [facility] Last Admin: 01/18/22 08:07 Dose: 600 mg Documented by: QUENTIN Ceftriaxone Sodium 1 gm/ (Sodium Chloride) 50 mls @ 100 mls/hr IV Q24H [facility] Last Infusion: 01/18/22 02:24 Dose: 0 mls/hr Documented by: CRISTINE Mirtazapine (Mirtazapine 30 Mg Tablet) 30 mg PO BEDTIME [facility] Last Admin: 01/17/22 19:48 Dose: 30 mg Documented by: KIANA Morphine Sulfate (Morphine Sulfate 2 Mg/Ml Cartridge) 1 mg IVPUSH Q4H PRN; Protocol PRN Reason: Pain, Severe (Pain Scale 7-10) Last Admin: 01/18/22 05:10 Dose: 1 mg Documented by: CRISTINE Propranolol HCl (Propranolol Hcl La 60 Mg Cap.Sa.24h) 120 mg PO DAILY [facility]; Protocol Last Admin: 01/18/22 08:07 Dose: 120 mg Documented by: QUENTIN Risperidone (Risperidone 0.5 Mg Tablet) 1.5 mg PO BEDTIME [facility] Last Admin: 01/17/22 19:48 Dose: 1.5 mg Documented by: KIANA Senna (Sennosides 8.6 Mg Tablet) 17.2 mg PO BEDTIME PRN PRN Reason: Constipation Sodium Chloride (0.9 % Sodium Chloride Flush 3 Ml Syringe) 3 ml IVFLUSH QSHIFT [facility] Last Admin: 01/18/22 08:08 Dose: Not Given Documented by: QUENTIN Non-Admin Reason: Med Not Available Tramadol HCl (Tramadol Hcl 50 Mg Tablet) 50 mg PO DAILY [facility] Last Admin: 01/18/22 08:07 Dose: 50 mg Documented by: QUENTIN Labs CBC & Chem 7: 01/18/22 04:49 01/18/22 07:31 Labs: Laboratory Results - last 24 hr 01/17/22 01/18/22 01/18/22 14:06 04:49 04:54 MCV 92.5 MCH 30.4 MCHC 32.9 RDW 14.1 Plt Count 205 MPV 11.2 Absolute Nucleated RBC 0.000 Nucleated RBC % (auto) 0.0 VBG pH 7.48 H VBG pCO2 35 VBG pO2 78 VBG HCO3 26 VBG O2 Saturation 96.0 VBG Base Excess 3.8 Anion Gap Estim Creat Clear Calc Estimated GFR Random Glucose Calcium Troponin I High Sens < 3.5 01/18/22 07:31 MCV MCH MCHC RDW Plt Count MPV Absolute Nucleated RBC Nucleated RBC % (auto) VBG pH VBG pCO2 VBG pO2 VBG HCO3 VBG O2 Saturation VBG Base Excess Anion Gap 15 Estim Creat Clear Calc 90.7 Estimated GFR > 60 Random Glucose 125 H Calcium 9.4 D Troponin I High Sens Microbiology Microbiology Results: Microbiology 01/17/22 01:07 Blood Culture - Preliminary Blood - Arterial No growth after 24 hours. 01/17/22 01:07 Blood Culture - Preliminary Blood - Arterial No growth after 24 hours. Assessment and Plan (1) Asthma with exacerbation: Status: Acute (2) Hypoxia: Status: Acute Plan hospital d#2 56yo M with asthma, HIV, prior lung abscess (Jun 2021) presenting with chest pain, admitted for hypoxia/asthma exacerbation/atypical PNA # acute hypoxic resp failure - wean O2 as tolerated # asthma exacerbation, acute - steroids, scheduled/prn nebs # atypical PNA - ceftriaxone + azithromycin d#2, urine antigens for Legionella + pneumococcus pending, ID + pulm consulted. RSV/flu/Covid-19 negative. recheck PCT in AM # chest pain - reproducible with palpation, suspect MSK related to coughing, 2nd troponin negative, EKG without ischemia # RIVERS - resolved, CT head normal # HIV - continue Biktarvy. last CD4 821 05/04/21. pt states last viral load fully suppressed. followed by Dr Street in [place]. # HTN - continue amlodipine + propranolol # neuropathy - continue gabapentin # mood disorder - continue clonazepam, risperidone, mirtazapine # VTE ppx - LMWH In my clinical judgment, the patient requires continued hospitalization for the following reasons: acute hypoxic respiratory failure Quality Stroke Does the patient have a stroke diagnosis?: No VTE Prior VTE?: No VTE Risk Level:: Medical - moderate - high VTE Device Contraindication: Treatment Not Indicated VTE Drug Contraindication: N/A - Med Ordered
--- NOTE | 2022-01-18 15:10 | PC.NURSE ---
Patient alert and oriented, VSS. Patient lung sounds clear. Beginning of shift O2 was 9L via Aerosol mask at 95-100%, throughout shift patient weaned down to 3L via NC, 92-96%. Patient c/o chest pain when taking breath or coughing, given morphine @ 1330 with good affect. Patient denies pain, nausea, or dizziness. Standing at bedside to use urinal, ambulated to bathroom supervision/1 assist, tolerated well. Patient has no complaints at this time.
--- NOTE | 2022-01-18 15:43 | PC.NURSE ---
report taken from manolo, patient a&ox3, c.o continuous mid chest pain with cough, pt previously medicated for pain, cardiac monitor technician sinus anu 58, vss, pt 3L NC- pt not home o2 dependent, call jansen within reach, will continue to monitor.
[2022-01-18] MEDS: Benzonatate 100 MG CAPSULE PO (18:31)
--- NOTE | 2022-01-18 18:31 | PC.NURSE ---
patient complaining of 9/10 mid chest pain while coughing, pt states that this is the same pain that he had when he initially arrived to the ed and it has not changed. he states its only while coughing, pt was medicated for pain as well as for his cough.
[2022-01-18] MEDS: Fluticasone Propionate 100 MCG BLST.W.DEV 1 PUFF INHALE (20:26)
[2022-01-18] MEDS: clonazePAM 1 MG TABLET PO (20:27)
[2022-01-18] MEDS: risperiDONE 0.5 MG TABLET 1.5 MG PO (20:28)
[2022-01-18] MEDS: Mirtazapine 30 MG TABLET PO (20:32)
[2022-01-19] VITALS (8 sets, daily range): BP systolic 146–154; BP diastolic 94; PULSE 52–74; RESP 18–22; TEMP 36.3–36.6; O2SAT 90–94
[2022-01-19] MEDS: Azithromycin 500 MG TABLET PO (02:11)
[2022-01-19] MEDS: cefTRIAXone sodium 1 GM in 0.9 % Sodium Chloride 50 ML IV (02:14)
[2022-01-19] MEDS: Morphine Sulfate 2 MG/ML CARTRIDGE 1 MG IVPUSH ×3 (02:49→13:01)
[2022-01-19] MEDS: Albuterol Sulfate (0.083%) 2.5 MG/3 ML VIAL.NEB INHALE (03:10)
[2022-01-19] MEDS: Acetaminophen 325 MG TABLET 625 MG PO (04:50)
[2022-01-19] MEDS: Fluticasone Propionate 100 MCG BLST.W.DEV 1 PUFF INHALE (07:49)
[2022-01-19] MEDS: Albuterol/Iprat 2.5/0.5MG 3 ML AMPUL.NEB INHALE ×2 (07:50→11:49)
[2022-01-19 08:24] LABS: Procalcitonin 0.02 ng/mL
[2022-01-19] MEDS: 0.9 % Sodium Chloride Flush 3 ML SYRINGE IVFLUSH (08:24)
[2022-01-19] MEDS: Propranolol HCL LA 60 MG CAP.SA.24H 120 MG PO (08:24)
[2022-01-19] MEDS: Gabapentin 600 MG TABLET PO (08:24)
[2022-01-19] MEDS: amLODIPine Besylate 5 MG TABLET PO (08:25)
[2022-01-19] MEDS: traMADoL HCL 50 MG TABLET PO (08:25)
[2022-01-19] MEDS: dexAMETHasone sod phosphate 4 MG/ML VIAL 6 MG IVPUSH (08:26)
[2022-01-19] MEDS: Bictegrav/Emtricit/Tenofov Ala TABLET 1 TAB PO (08:26)
[2022-01-19] MEDS: Enoxaparin Sodium 40 MG/0.4 ML SYRINGE SUBCUT (08:27)
--- NOTE | 2022-01-19 11:51 | PM.DS ---
DS: Providers Provider Date of Service: 01/19/22 Date of admission: 01/17/22 03:22 Date of discharge: 01/19/22 Primary care physician: Akira Lobo MD Consults: 01/17/22 03:49 Consult to Infectious Diseases Routine Consulting Provider: Kary Ko Reason for consultation: HIV; ?Atypical PNA Consult to Pulmonology Routine Consulting Provider: Omid Larsne Reason for consultation: hypoxia DS: Diagnosis Discharge Diagnosis (1) Atypical pneumonia: Status: Acute (2) Mild persistent asthma with (acute) exacerbation: Status: Acute (3) Acute respiratory failure with hypoxia: Status: Acute DS: Summary Hospital Course Hospital Course: from admission H+P by Renea Aranda, 01/17/22: 56-year-old male with a past medical history of asthma, HIV, anxiety, depression, history of pleuritic chest pain, history of hep C, kidney stones, hemorrhoids, history of lung abscess in 2020; presented to the hospital today with a chief complaint of chest pain.? Patient reports that he was doing fine until yesterday; he developed shortness of breath; today he developed chest pain located in the center of the chest, nonradiating, no associated lightheadedness dizziness nausea vomiting or diaphoresis.? Also reported dry cough.? As he is having severe pain he decided to come to the ER for further evaluation.? Denies any recent travel or sick contacts.? Denies any numbness tingling or focal weakness.? Denies any fevers at home.? Review of all other systems is negative except mentioned above ER course: Per ER team patient noted to have reproducible chest pain; EKG was nonischemic; troponin negative; patient on minimal exertion noted to be hypoxic to 87% on room air; placed on supplemental oxygen; on lung exam noted to have a bilateral wheezing; concern for asthma exacerbation-given Decadron and nebulizer treatment.? Admitted to the hospital for further management. This 56yo M with asthma, HIV, prior lung abscess (Jun 2021) presenting with chest pain was admitted for hypoxia/asthma exacerbation/atypical PNA. He was treated with ceftriaxone and azithromycin. RSV, influenza, and Covid-19 PCR were negative. Blood cultures were negative and procalcitonin remained low. He was weaned off oxygen. Chest pain was musculoskeletal in origin. He was discharged home to complete 2 more days of prednisone, cefuroxime, and azithromycin. He should see his primary care doctor in 1 week and was referred to Pulmonology for outpatient PFT testing. Time Spent with Patient Time attestation: Total time spent providing and/or coordinating discharge services: 40 Discharge coordination time: Greater than 30 minutes Quality: Safe Use of Opioids Does Pt have an Active Cancer Diagnosis on the Problem List?: No Quality: Stroke Does the patient have a stroke diagnosis?: No Physical Exam Vital Signs: Vital Signs: Last Vital Signs Temp 97.7 F 01/19/22 10:49 Pulse 71 01/19/22 11:50 Resp 18 01/19/22 11:50 BP 146/94 H 01/19/22 10:49 Pulse Ox 94 01/19/22 10:49 Oxygen Flow Rate 2 01/16/22 23:02 BMI result Body Mass Index 25.4 Gen: in no acute distress HEENT: sclera anicteric, moist mucus membranes Neck: supple Lungs: clear to auscultation bilaterally Heart: regular rate and rhythm, no murmurs Abd: soft, non-tender, non-distended Ext: no edema Skin: warm/well-perfused Neuro: alert and oriented x3, no focal findings Psych: appropriate affect DS: Data Data Completed and Pending Completed studies during hospitalization [Text1]: Laboratory Results WBC 7.9 X10*3/uL (4.8-10.8) 01/18/22 04:49 RBC 4.54 X10*6/uL (4.60-5.80) L 01/18/22 04:49 Hgb 13.8 g/dl (14.0-18.0) L 01/18/22 04:49 Hct 42.0 % (42.0-52.0) 01/18/22 04:49 MCV 92.5 fL (80.0-98.0) 01/18/22 04:49 MCH 30.4 pg (27.0-33.0) 01/18/22 04:49 MCHC 32.9 g/dl (31.0-36.0) 01/18/22 04:49 RDW 14.1 % (11.0-16.0) 01/18/22 04:49 Plt Count 205 X10*3/uL (160-400) 01/18/22 04:49 MPV 11.2 fL (9.4-12.4) 01/18/22 04:49 Immature Gran % (Auto) 0.3 % (0.0-0.4) 01/17/22 04:59 Neut % (Auto) 92.6 % (45-73) H 01/17/22 04:59 Lymph % (Auto) 3.5 % (20-40) L 01/17/22 04:59 [place] % (Auto) 2.4 % (2-11) 01/17/22 04:59 Eos % (Auto) 0.7 % (0-4) 01/17/22 04:59 Baso % (Auto) 0.5 % (0-2) 01/17/22 04:59 Lymph # (Auto) 0.3 X10*3/uL (1.2-4.9) L 01/17/22 04:59 [place] # (Auto) 0.2 X10*3/uL (0.1-1.2) 01/17/22 04:59 Eos # (Auto) 0.1 X10*3/uL (0.0-0.4) 01/17/22 04:59 Baso # (Auto) 0.0 X10*3/uL (0.0-0.2) 01/17/22 04:59 Abs Immat Gran (auto) 0.02 X10*3/uL (0.00-0.03) 01/17/22 04:59 Absolute Neuts (auto) 6.9 x10*3/uL (2.0-8.3) 01/17/22 04:59 Absolute Nucleated RBC 0.000 X10*3/uL (0.0-0.012) 01/18/22 04:49 Nucleated RBC % (auto) 0.0 /100WBC (0.0-0.2) 01/18/22 04:49 Smear Tech's Comments VERIFIED 01/17/22 04:59 PT 13.0 SEC (9.9-13.0) 01/17/22 01:07 INR 1.1 (0.9-1.1) 01/17/22 01:07 D-Dimer High Sensitivty 233 NG/ML 01/17/22 01:07 VBG pH 7.48 (7.32-7.43) H 01/18/22 04:54 VBG pCO2 35 mmHg 01/18/22 04:54 VBG pO2 78 mmHg 01/18/22 04:54 VBG HCO3 26 mmol/L (22-26) 01/18/22 04:54 VBG O2 Saturation 96.0 % 01/18/22 04:54 VBG Base Excess 3.8 mmol/L 01/18/22 04:54 Sodium 139 mmol/L (135-145) 01/18/22 07:31 Potassium 4.5 mmol/L (3.3-5.1) 01/18/22 07:31 Chloride 104 mmol/L (96-108) 01/18/22 07:31 Carbon Dioxide 25 mmol/L (22-29) 01/18/22 07:31 Anion Gap 15 (12-20) 01/18/22 07:31 BUN 15 mg/dL (9-16) 01/18/22 07:31 Creatinine 0.81 mg/dL (0.5-1.4) 01/18/22 07:31 Estim Creat Clear Calc 90.7 01/18/22 07:31 Estimated GFR > 60 01/18/22 07:31 Random Glucose 125 mg/dL (60-115) H 01/18/22 07:31 Lactic Acid 1.3 mmol/L (0.5-2.0) 01/17/22 01:07 Calcium 9.4 mg/dL (8.4-10.2) D 01/18/22 07:31 Total Bilirubin 0.3 mg/dL (0.0-1.0) 01/16/22 23:44 AST 18 U/L (5-37) 01/16/22 23:44 ALT 19 U/L (0-40) 01/16/22 23:44 Alkaline Phosphatase 71 U/L (39-117) 01/16/22 23:44 Troponin I High Sens < 3.5 ng/L (<3.5-35.0) 01/17/22 14:06 Total Protein 7.0 g/dL (6.5-8.0) 01/16/22 23:44 Albumin 4.0 g/dL (3.5-5.0) 01/16/22 23:44 Procalcitonin 0.02 ng/mL 01/19/22 06:45 COVID-19 (TAMMIE) Negative (Negative) 01/16/22 23:42 COVID-19 Clin Com See Note 01/16/22 23:42 Influenza Type A (KEVON) Negative (Negative) 01/16/22 23:42 Influenza Type B (KEVON) Negative (Negative) 01/16/22 23:42 Influenza A & B Note See Note 01/16/22 23:42 Impressions Chest X-Ray 01/17/22 00:25 IMPRESSION: No dense consolidation. Bronchial wall thickening can be seen with a small airways process such as asthma or atypical/viral infection. Head CT 01/17/22 05:25 IMPRESSION: No acute intracranial pathology. Mild paranasal sinus opacification. Chest CT 01/17/22 08:08 IMPRESSION: Limited exam due to artifact from respiratory motion. Subsegmental atelectasis or small infiltrates at the lung bases. Resolved right upper lobe lung abscess from June 2021. Question left hilar lymphadenopathy. Stable small mediastinal lymph nodes. Stable old mid thoracic vertebral body compression fractures. Fleischner guidelines were followed. Pending studies at discharge: urine pneumococcal and Legionella antigens Discharge Plan Discharge Patient Disposition: Home, Self-Care Discharge Diagnosis: pneumonia, asthma exacerbation, hypoxia, atypical chest pain Referrals: Omid Larsen MD [Physician] - 1 Week Akira Lobo MD [Primary Care Provider] - 1 Week Discharge Medications: New prednisone 20 mg tablet 40 mg PO DAILY Qty: 4 0RF cefuroxime axetil 500 mg tablet 500 mg PO BID 2 Days Qty: 4 0RF azithromycin 250 mg tablet 250 mg PO DAILY 2 Days Qty: 2 0RF Rx Instructions: start on day 2 of therapy lidocaine 4 % adhesive patch,medicated 1 patch topical DAILY PRN (Reason: chest wall pain) Qty: 10 0RF albuterol sulfate 2.5 mg /3 mL (0.083 %) solution for nebulization 2.5 mg inhalation Q4-6H PRN (Reason: shortness of breath or wheezing) Qty: 90 0RF Continued gabapentin 600 mg tablet 1 tab PO TID 0RF clonazepam 1 mg tablet 1 tab PO BEDTIME 0RF tramadol 50 mg tablet 1 tab PO DAILY 0RF acetaminophen 500 mg tablet 1 tab PO BID PRN (Reason: pain) 0RF Biktarvy 50-200-25 mg tablet 1 tab PO DAILY 0RF amlodipine 5 mg tablet 1 tab PO DAILY 0RF propranolol 120 mg capsule,extended release 24 hr 1 cap PO DAILY 0RF diphenhydramine HCl [Banophen] 25 mg tablet 2 tab PO BEDTIME PRN (Reason: Insomnia) 0RF risperidone 1 mg tablet 1.5 tab PO BEDTIME 0RF Flovent HFA 110 mcg/actuation HFA aerosol inhaler 1 puff inhalation BID 0RF mirtazapine 30 mg tablet 1 tab PO BEDTIME 0RF albuterol sulfate 90 mcg/actuation HFA aerosol inhaler 2 puff PO Q4-6H PRN (Reason: Wheezing) 0RF Discharge Orders: Discharge Order (Routine); Ordered 01/19/22 Ordered By: Timi Muñiz Diet: advance to usual diet and low salt diet Activity on Discharge: As tolerated Stand Alone Forms: Patient Portal Discharge page Care Plan Goals: recovery from pneumonia + asthma Health Concerns: pneumonia, asthma exacerbation, hypoxia, atypical chest pain Plan of Treatment: take cefuroxime 500 mg twice daily x 2 days take azithromycin 250 mg once daily x 2 days take prednisone 40 mg once daily x 2 days use albuterol for rescue use acetaminophen [Tylenol] or lidocaine patch for chest wall pain see your primary care doctor in 1 week referral to Pulmonology; will need PFTs Assessment: See Discharge Summary Patient Instructions: Pneumonia (DC)
--- NOTE | 2022-01-19 14:08 | MHC.CM.PN ---
Addendum entered by Bia Talavera 01/19/22 14:50: Patient was not able to secure a ride home. CM arranged for transportation. Patient will take the shuttle home 3pm. Original Note: PT WILL DC HOME TODAY WITH RESUMPTION OF HIS [employer] PT TO ARRANGE TRANSPORTATION
[2022-01-22 15:12] LABS: Strep Pneumo Ag urine Not Detected (Not Detected)
[2022-01-23 00:47] LABS: Legionella Ag Urine Not Detected (Not Detected)
== END 2022-01-19 14:59 | disposition home or self-care (01) | DRG 193 ==
LOC: HO.ED 01-17 01:31 → HO.EDOVER 01-17 03:26 → HO.IMC 01-18 19:13
PROVIDERS: Admitting Provider Hospitalist; Emergency Provider Internal Medicine; PCP Internal Medicine; Visit Provider Family Medicine
DX: J18.9 Pneumonia, unspecified organism (principal); J96.01 Acute respiratory failure with hypoxia; J45.31 Mild persistent asthma with (acute) exacerbation; J98.11 Atelectasis; Z21 Asymptomatic human immunodeficiency virus [HIV] infection status; F32.A Depression, unspecified; I10 Essential (primary) hypertension; F41.9 Anxiety disorder, unspecified; G62.9 Polyneuropathy, unspecified; Z20.822 Contact with and (suspected) exposure to COVID-19; Z87.442 Personal history of urinary calculi; Z86.19 Personal history of other infectious and parasitic diseases; Z88.0 Allergy status to penicillin; Z88.5 Allergy status to narcotic agent; Z88.6 Allergy status to analgesic agent; Z79.52 Long term (current) use of systemic steroids; Z79.899 Other long term (current) drug therapy
CPT/HCPCS: 36415; 70450; 71045; 71250; 80048; 80053; 82803; 83605; 84145; 84484; 85025; 85027; 85379; 85610; 87040; 87449; 87502; 87635; 87899; 93005; 94640; 96361; 96365; 96375; 99285; J0456; J0696; J1100; J1170; J1650; J2270; J3475; J8540

== ENCOUNTER 2022-02-01 08:41 | Outpatient (REF) | payer OTHER, SELFPAY ==
[2022-02-01 09:53] LABS: Hematocrit 43.5 % (42.0-52.0); Hemoglobin 14.5 g/dl (14.0-18.0); Mean Corpuscular HGB Conc 33.3 g/dl (31.0-36.0); Mean Corpuscular Hemoglobin 31.1 pg (27.0-33.0); Mean Corpuscular Volume 93.3 fL (80.0-98.0); Mean Platelet Volume 11.3 fL (9.4-12.4); Platelet Count 212 X10*3/uL (160-400); Red Blood Count 4.66 X10*6/uL (4.60-5.80); Red Cell Distribution Width 14.1 % (11.0-16.0)
[2022-02-01 10:27] LABS: Alanine Aminotransferase 34 U/L (0-40); Albumin Level 4.1 g/dL (3.5-5.0); Aspartate Amino Transferase 19 U/L (5-37); Bilirubin Total 0.3 mg/dL (0.0-1.0); Estimated Glomerular Filt Rate > 60
[2022-02-01 10:49] LABS: Syphilis Screen Nonreactive (Nonreactive)
[2022-02-01 13:20] LABS: CT PCR NOT DETECTED (Not Detect.); NG PCR NOT DETECTED (Not Detect.)
[2022-02-03 12:02] LABS: Absolute CD3 Count 1058 cells/uL (840-3060); Absolute CD4 Count 525 cells/uL (490-1740); Absolute CD8 Count 584 cells/uL (180-1170); Absolute Lymphocytes 1412 cells/uL (850-3900); Percent CD3 Cells 75 % (57-85); Percent CD4 Cells 37 % (30-61); Percent CD8 Cells 41 % (12-42)
[2022-02-04 15:27] LABS: HIV RNA PCR Qn Copies NOT DETECTED copies/mL (NOT DETECTED); HIV RNA PCR Qn Log Copies NOT DETECTED (NOT DETECTED)
== END 2022-02-01 08:42 | disposition home or self-care (01) ==
LOC: HO.LAB 08:41
PROVIDERS: PCP Internal Medicine; Visit Provider Internal Medicine Infectious Disease
DX: B20 Human immunodeficiency virus [HIV] disease (principal)
CPT/HCPCS: 82040; 82247; 82565; 84450; 84460; 85027; 86359; 86360; 86780; 87491; 87536; 87591

== ENCOUNTER 2022-02-01 09:27 | Emergency (ER) | payer OTHER, SELFPAY ==
--- NOTE | ~2022-02-01 | XR_ITS ---
EXAMINATION: XR CHEST CLINICAL INFORMATION: Chest pain COMPARISON: Previous chest x-ray 01/17/2022 TECHNIQUE: Frontal view of the chest was obtained. FINDINGS: No significant abnormality is noted involving the heart, lungs, mediastinum, bony thorax or soft tissues. XR/XR chest 1V IMPRESSION: Unremarkable examination.
--- NOTE | 2022-02-01 09:31 | ECG_ITS ---
Test Reason : cp Blood Pressure : / mmHG Vent. Rate : 090 BPM Atrial Rate : 090 BPM P-R Int : 146 ms QRS Dur : 088 ms QT Int : 378 ms P-R-T Axes : 069 063 052 degrees QTc Int : 462 ms Normal sinus rhythm Normal ECG When compared with ECG of 17-JAN-2022 01:08, No significant change was found Referred By: Generic ED Physician Electronically Signed By:Daniel Keller
[2022-02-01 09:34] VITALS: BP 133/100; PULSE 88; RESP 16; TEMP 35.6; O2SAT 96; BMI 24.0
[2022-02-01 09:46] LABS: MANUAL DIFF FLAG NO
[2022-02-01 09:47] LABS: Basophils Percent Auto 0.5 % (0-2); Eosinophils Absolute Auto 0.1 X10*3/uL (0.0-0.4); Eosinophils Percent Auto 1.3 % (0-4); Hematocrit 44.3 % (42.0-52.0); Hemoglobin 14.5 g/dl (14.0-18.0); Imm Gran Abs Auto 0.02 X10*3/uL (0.00-0.03); Imm Gran Pct Auto 0.3 % (0.0-0.4); Lymphocytes Absolute Auto 1.4 X10*3/uL (1.2-4.9); Lymphocytes Percent Auto 22.4 % (20-40); Mean Corpuscular HGB Conc 32.7 g/dl (31.0-36.0); Mean Corpuscular Hemoglobin 30.6 pg (27.0-33.0); Mean Corpuscular Volume 93.5 fL (80.0-98.0); Mean Platelet Volume 11.1 fL (9.4-12.4); Monocytes Absolute Auto 0.6 X10*3/uL (0.1-1.2); Monocytes Percent Auto 9.8 % (2-11); Neutrophils Absolute Auto 4.1 x10*3/uL (2.0-8.3); Neutrophils Percent Auto 65.7 % (45-73); Platelet Count 207 X10*3/uL (160-400); Red Blood Count 4.74 X10*6/uL (4.60-5.80); White Blood Count 6.2 X10*3/uL (4.8-10.8)
[2022-02-01 10:03] LABS: Anion Gap 13 (12-20); Blood Urea Nitrogen 12 mg/dL (9-16); Calcium 9.4 mg/dL (8.4-10.2); Carbon Dioxide 27 mmol/L (22-29); Chloride 108 mmol/L (96-108); Creatinine Clr Calc Pharmacy 66.2; Estimated Glomerular Filt Rate > 60; Glucose Random 105 mg/dL (60-115); Potassium 4.2 mmol/L (3.3-5.1); Sodium 144 mmol/L (135-145)
[2022-02-01 10:10] LABS: Troponin-I High Sensitivity < 3.5 ng/L (<3.5-35.0)
[2022-02-01 11:18] VITALS: BP 158/97; PULSE 83; RESP 21; TEMP 36.6; O2SAT 98
--- NOTE | 2022-02-01 11:57 | ED.CHESTPAIN ---
HPI - Chest Pain General Chief Complaint: Chest Pain Stated Complaint: chest pain X2days Time Seen by Provider: 02/01/22 11:26 History of Present Illness HPI narrative: 56-year-old admitted here at [place] from 01/16 till for chest pain and has COPD versus asthma exacerbation patient is also treated for pneumonia. Patient has history ofasthma, HIV, anxiety, depression, history of pleuritic chest pain, history of hep C, kidney stones, hemorrhoids, history of lung abscess in 2020. He presents again here today for chest pain he had chest pain for the past 2 days he states he was seen here 2 days ago and he was admitted here on the the patient has been discharged since . Patient denies fever or cough review of records show that he has got chronic pleuritic chest pain and the chest pain was thought to be musculoskeletal in order he has had a negative workup so far and his main complaint is a headache and he is asking for a tramadol script. 56yo M with asthma, HIV, prior lung abscess (Jun 2021) presenting with chest pain was admitted for hypoxia/asthma exacerbation/atypical PNA.? He was treated with ceftriaxone and azithromycin.? RSV, influenza, and Covid-19 PCR were negative.? Blood cultures were negative and procalcitonin remained low.? He was weaned off oxygen.? Chest pain was musculoskeletal in origin.? He was discharged home to complete 2 more days of prednisone, cefuroxime, and azithromycin.? He should see his primary care doctor in 1 week and was referred to Pulmonology for outpatient PFT testing. Related Data Home Medications Medication Instructions Recorded Confirmed clonazepam 1 mg tablet 1 tab PO BEDTIME 04/21/21 01/17/22 gabapentin 600 mg tablet 1 tab PO TID 04/21/21 01/17/22 tramadol 50 mg tablet 1 tab PO DAILY 04/21/21 01/17/22 acetaminophen 500 mg tablet 1 tab PO BID PRN 06/06/21 01/17/22 bictegravir 50 mg-emtricitabine 1 tab PO DAILY 06/06/21 01/17/22 200 mg-tenofovir alafenam 25 mg tablet (Biktarvy) amlodipine 5 mg tablet 1 tab PO DAILY 06/19/21 01/17/22 propranolol 120 mg capsule,24 1 cap PO DAILY 10/10/21 05/10/22 hr,extended release albuterol sulfate 90 mcg/actuation 2 puff PO Q4-6H PRN 01/17/22 01/17/22 aerosol inhaler diphenhydramine HCl 25 mg tablet 2 tab PO BEDTIME PRN 01/17/22 01/17/22 (Banophen) fluticasone propionate 110 1 puff INHALATION BID 01/17/22 01/17/22 mcg/actuation HFA aerosol inhaler (Flovent HFA) mirtazapine 30 mg tablet 1 tab PO BEDTIME 01/17/22 01/17/22 risperidone 1 mg tablet 1.5 tab PO BEDTIME 01/17/22 01/17/22 Previous Rx's Medication Instructions Recorded albuterol sulfate 2.5 mg (3 mL) INHALATION Q4-6H PRN 01/19/22 #90 ml azithromycin 250 mg tablet 250 mg PO DAILY 2 Days #2 tab 01/19/22 cefuroxime axetil 500 mg tablet 500 mg PO BID 2 Days #4 tab 01/19/22 lidocaine 4 % topical patch 1 patch TOPICAL DAILY PRN #10 ea 01/19/22 prednisone 20 mg tablet 40 mg PO DAILY #4 tab 01/19/22 ibuprofen 400 mg tablet 400 mg PO Q6H PRN #60 tab 02/01/22 Allergies Allergy/AdvReac Type Severity Reaction Status Date / Time codeine Allergy Mild RASH Verified 08/17/21 13:16 [From Tylenol-Codeine #3] levofloxacin [From LEVAQUIN] Allergy Mild Rash Verified 08/17/21 13:16 metoclopramide [From Reglan] Allergy Mild RASH Verified 08/17/21 13:16 acetaminophen Allergy Unknown Unknown Verified 08/17/21 13:16 [Tylenol-Codeine #3] Motrin Allergy Unknown REflux Verified 08/17/21 13:16 Penicillins [PENICILLINS] Allergy Unknown RASH Verified 08/17/21 13:16 tramadol [From Ultram] AdvReac Mild N/V Verified 08/17/21 13:16 penicillin Allergy Intermediate Rash Uncoded 01/18/22 20:14 SEASONAL ALLERGIES Allergy Intermediate EYE Uncoded 06/06/21 16:07 DRAINAGE Review of Systems Review of Systems: Review of systems: General: Patient denies any fever chills recent illness or falls Musculoskeletal: Denies back pain or body aches or other injuries HEENT: denies headache, runny nose, ear pain Respiratory: denies shortness of breath, cough Cardiovascular: no chest pain or palpitations : denies dysuria, frequency Abdomen: no nausea vomiting denies abdominal pain Extremities: no swelling, no pain Skin: no diaphoresis Yes all other systems are reviewed and are negative PMFSH Past Medical History Medical History Asthma Depression Hemorrhoids Hepatitis C HIV (human immunodeficiency virus infection) Kidney stones Pleuritic chest pain Pneumonia Substance abuse Surgical History H/O hemorrhoidectomy Social History Social History Household Members: None Housing: Apartment Do you presently have visiting nurse or other home services: Yes ([employer]) Alcohol intake: never Patient Tobacco Use Status: Never used Tobacco Second Hand Smoke Exposure: No Advance Directives: Yes Advance Directives on File: Yes Advance Directives Date on File: 04/25/21 service: No Current occupational status: disabled Physical Exam Vital Signs: Vital Signs: Last Vital Signs Temp 97.8 F 02/01/22 11:18 Pulse 83 02/01/22 11:18 Resp 21 H 02/01/22 11:18 BP 158/97 H 02/01/22 11:18 Pulse Ox 98 02/01/22 11:18 BMI result Body Mass Index 24.0 General: Well-appearing well-nourished in no signs of distress HEENT: Normocephalic atraumatic Neck: No signs of JVD, no masses no tenderness or lymphadenopathy Cardiovascular: Regular rate and rhythm Respiratory: Clear to auscultation bilaterally Abdomen: Soft nontender no masses Extremities: Normal pedal pulses no signs of edema Skin: Dry warm no rashes Back: No tenderness full ROM MDM - Chest Pain MDM Narrative Medical decision making narrative: Patient appears to be having acute on chronic chest wall pain patient has no signs of hypoxic is not tachycardic he looks otherwise well and just had a recent complete workup for cardiac pain and he is on antibiotics. Patient had an x-ray here which is negative I do not feel strongly this patient needs to come into the hospital I will give the patient l fluids and Toradol for his headache. I can send the patient home with more Tylenol and explained the need for him to follow up to get a script for tramadol is I do not write the [facility] for patients that her on that chronically. He also has listed multiple allergies including Reglan acetaminophen and tramadol. 1250 x-ray and labs are all negative patient is feeling better with some Toradol I will discharge the patient home with ibuprofen. Differential Diagnosis Differential diagnosis: Likely unstable angina pectoris, atypical chest pain, st elevation myocardial infarction, costochondritis and chest pain Medical Records Data Attestation: I reviewed the patient's medical records. Lab Data Attestation: I reviewed the patient's lab results. Result diagrams: 02/01/22 09:42 02/01/22 09:42 Labs: Lab Results 02/01/22 02/01/22 02/01/22 Range/Units 09:42 09:42 09:42 WBC 6.2 (4.8-10.8) X10*3/uL RBC 4.74 (4.60-5.80) X10*6/uL Hgb 14.5 (14.0-18.0) g/dl Hct 44.3 (42.0-52.0) % MCV 93.5 (80.0-98.0) fL MCH 30.6 (27.0-33.0) pg MCHC 32.7 (31.0-36.0) g/dl RDW 14.0 (11.0-16.0) % Plt Count 207 (160-400) X10*3/uL MPV 11.1 (9.4-12.4) fL Immature Gran % (Auto) 0.3 (0.0-0.4) % Neut % (Auto) 65.7 (45-73) % Lymph % (Auto) 22.4 (20-40) % Hardeman % (Auto) 9.8 (2-11) % Eos % (Auto) 1.3 (0-4) % Baso % (Auto) 0.5 (0-2) % Lymph # (Auto) 1.4 (1.2-4.9) X10*3/uL Hardeman # (Auto) 0.6 (0.1-1.2) X10*3/uL Eos # (Auto) 0.1 (0.0-0.4) X10*3/uL Baso # (Auto) 0.0 (0.0-0.2) X10*3/uL Abs Immat Gran (auto) 0.02 (0.00-0.03) X10*3/uL Absolute Neuts (auto) 4.1 (2.0-8.3) x10*3/uL Absolute Nucleated RBC 0.000 (0.0-0.012) X10*3/uL Nucleated RBC % (auto) 0.0 (0.0-0.2) /100WBC Sodium 144 (135-145) mmol/L Potassium 4.2 (3.3-5.1) mmol/L Chloride 108 (96-108) mmol/L Carbon Dioxide 27 (22-29) mmol/L Anion Gap 13 (12-20) BUN 12 (9-16) mg/dL Creatinine 1.11 (0.5-1.4) mg/dL Estim Creat Clear Calc 66.2 Estimated GFR > 60 Random Glucose 105 (60-115) mg/dL Calcium 9.4 (8.4-10.2) mg/dL Troponin I High Sens < 3.5 (<3.5-35.0) ng/L ECG Data ECG #1: Attestation: I personally reviewed and interpreted this ECG as follows: ECG interpretation date: 02/01/22 ECG interpretation time: 12:04 Prior ECG tracings: available for review Interpretation: Rate 90 normal sinus rhythm normal intervals no signs of ischemia Discharge Plan Discharge Clinical Impression: Atypical chest pain Patient Disposition: Home, Self-Care Instructions: Chest Pain (DC) Additional Instructions: X-ray and labs are all normal please call the doctor if you have any other concerns please do not hesitate to come back to the emergency department. Prescriptions: New ibuprofen 400 mg tablet 400 mg PO Q6H PRN (Reason: Pain) Qty: 60 0RF No Action gabapentin 600 mg tablet 1 tab PO TID 0RF clonazepam 1 mg tablet 1 tab PO BEDTIME 0RF tramadol 50 mg tablet 1 tab PO DAILY 0RF acetaminophen 500 mg tablet 1 tab PO BID PRN (Reason: pain) 0RF Biktarvy 50-200-25 mg tablet 1 tab PO DAILY 0RF amlodipine 5 mg tablet 1 tab PO DAILY 0RF propranolol 120 mg capsule,extended release 24 hr 1 cap PO DAILY 0RF diphenhydramine HCl [Banophen] 25 mg tablet 2 tab PO BEDTIME PRN (Reason: Insomnia) 0RF risperidone 1 mg tablet 1.5 tab PO BEDTIME 0RF Flovent HFA 110 mcg/actuation HFA aerosol inhaler 1 puff inhalation BID 0RF mirtazapine 30 mg tablet 1 tab PO BEDTIME 0RF albuterol sulfate 90 mcg/actuation HFA aerosol inhaler 2 puff PO Q4-6H PRN (Reason: Wheezing) 0RF prednisone 20 mg tablet 40 mg PO DAILY Qty: 4 0RF cefuroxime axetil 500 mg tablet 500 mg PO BID 2 Days Qty: 4 0RF azithromycin 250 mg tablet 250 mg PO DAILY 2 Days Qty: 2 0RF Rx Instructions: start on day 2 of therapy lidocaine 4 % adhesive patch,medicated 1 patch topical DAILY PRN (Reason: chest wall pain) Qty: 10 0RF albuterol sulfate 2.5 mg /3 mL (0.083 %) solution for nebulization 2.5 mg inhalation Q4-6H PRN (Reason: shortness of breath or wheezing) Qty: 90 0RF
[2022-02-01] MEDS: 0.9 % Sodium Chloride 1,000 ML 999 ML IV (12:23)
[2022-02-01] MEDS: Ketorolac Tromethamine 15 MG/ML VIAL IVPUSH (12:38)
== END 2022-02-01 13:24 | disposition home or self-care (01) ==
PROVIDERS: Emergency Provider Student in an Organized Health Care Education/Training Program; PCP Internal Medicine
DX: R07.89 Other chest pain (principal); Z79.899 Other long term (current) drug therapy
CPT/HCPCS: 36415; 71045; 80048; 84484; 85025; 93005; 96361; 96374; 99283; 99284; J1885

== ENCOUNTER 2022-02-10 02:14 | Emergency (ER) | payer OTHER, SELFPAY ==
--- NOTE | 2022-02-10 | ECG_ITS ---
Test Reason : CHEST PAIN Blood Pressure : / mmHG Vent. Rate : 085 BPM Atrial Rate : 085 BPM P-R Int : 160 ms QRS Dur : 100 ms QT Int : 384 ms P-R-T Axes : 066 052 021 degrees QTc Int : 456 ms Normal sinus rhythm Incomplete right bundle branch block T wave abnormality, consider anterior ischemia Abnormal ECG When compared with ECG of 01-FEB-2022 09:28, No significant change was found Referred By: Generic ED Physician Electronically Signed By:ZHANG OCHOA MD
--- NOTE | ~2022-02-10 | XR_ITS ---
EXAMINATION: XR CHEST CLINICAL INFORMATION: Chest pain COMPARISON: 02/01/2022 TECHNIQUE: 2 views of the chest were obtained. FINDINGS: The lungs are clear with no focal consolidation. No evidence of pneumothorax, pulmonary edema, or pleural effusions. The cardiomediastinal silhouette is unremarkable. No acute osseous findings. XR/XR chest 2V IMPRESSION: No acute cardiopulmonary findings.
[2022-02-10 02:18] VITALS: BP 145/83; BP 166/105; PULSE 82; PULSE 93; RESP 14; TEMP 36.7; O2SAT 98; BMI 27.4
[2022-02-10 02:41] LABS: MANUAL DIFF FLAG NO
[2022-02-10 02:42] LABS: Basophils Percent Auto 0.7 % (0-2); Eosinophils Absolute Auto 0.2 X10*3/uL (0.0-0.4); Hematocrit 39.6 % (42.0-52.0); Hemoglobin 13.1 g/dl (14.0-18.0); Imm Gran Abs Auto 0.01 X10*3/uL (0.00-0.03); Imm Gran Pct Auto 0.2 % (0.0-0.4); Lymphocytes Absolute Auto 1.5 X10*3/uL (1.2-4.9); Lymphocytes Percent Auto 33.3 % (20-40); Mean Corpuscular HGB Conc 33.1 g/dl (31.0-36.0); Mean Corpuscular Volume 93.6 fL (80.0-98.0); Mean Platelet Volume 10.6 fL (9.4-12.4); Monocytes Absolute Auto 0.7 X10*3/uL (0.1-1.2); Neutrophils Percent Auto 45.8 % (45-73); Platelet Count 219 X10*3/uL (160-400); Red Blood Count 4.23 X10*6/uL (4.60-5.80); Red Cell Distribution Width 14.1 % (11.0-16.0); White Blood Count 4.4 X10*3/uL (4.8-10.8)
[2022-02-10 03:01] LABS: COVID-19 Test Negative (Negative); IDNOW Serial# 16C4AD1C; Influenza A Negative (Negative); Influenza B2 Negative (Negative)
[2022-02-10 03:05] LABS: Alanine Aminotransferase 20 U/L (0-40); Albumin Level 3.8 g/dL (3.5-5.0); Alkaline Phosphatase 67 U/L (39-117); Anion Gap 12 (12-20); Aspartate Amino Transferase 14 U/L (5-37); Bilirubin Total 0.3 mg/dL (0.0-1.0); Blood Urea Nitrogen 9 mg/dL (9-16); Calcium 8.9 mg/dL (8.4-10.2); Carbon Dioxide 26 mmol/L (22-29); Chloride 109 mmol/L (96-108); Creatinine Clr Calc Pharmacy 70.3; Estimated Glomerular Filt Rate > 60; Glucose Random 109 mg/dL (60-115); Potassium 3.3 mmol/L (3.3-5.1); Sodium 144 mmol/L (135-145); Total Protein 6.7 g/dL (6.5-8.0)
[2022-02-10 03:10] LABS: Troponin-I High Sensitivity 4.8 ng/L (<3.5-35.0)
[2022-02-10 04:20] VITALS: BP 155/97; PULSE 77; RESP 23; TEMP 36.7; O2SAT 97
[2022-02-10 05:10] VITALS: RESP 24
[2022-02-10] MEDS: 0.9 % Sodium Chloride 1,000 ML 999 ML IV (05:10)
[2022-02-10] MEDS: Morphine Sulfate 2 MG/ML CARTRIDGE IVPUSH (05:10)
--- NOTE | 2022-02-10 06:23 | ED.CHESTPAIN ---
HPI - Chest Pain General Chief Complaint: Chest Pain Stated Complaint: Chest pain/Headache Time Seen by Provider: 02/10/22 05:02 Source: patient and EMS Mode of arrival: EMS Limitations: no limitations History of Present Illness HPI narrative: 56-year-old male came in for evaluation of chest pain, dry cough, migraine. Chest pain for the last 2 days localized to the left side of the chest, no shortness of breath, no radiation, no relieving factor, no aggravating factor, no shortness of breath. Patient had previous admission for chest pain with negative workup. Patient also been complaining of sore throat and dry cough patient had COVID vaccination. Patient is been having long history migraine came in with exacerbation of headache migraine patient tried kept fentanyl at home with no relief. Related Data Home Medications Medication Instructions Recorded Confirmed clonazepam 1 mg tablet 1 tab PO BEDTIME 04/21/21 01/17/22 gabapentin 600 mg tablet 1 tab PO TID 04/21/21 01/17/22 tramadol 50 mg tablet 1 tab PO DAILY 04/21/21 01/17/22 acetaminophen 500 mg tablet 1 tab PO BID PRN 06/06/21 01/17/22 bictegravir 50 mg-emtricitabine 1 tab PO DAILY 06/06/21 01/17/22 200 mg-tenofovir alafenam 25 mg tablet (Biktarvy) amlodipine 5 mg tablet 1 tab PO DAILY 06/19/21 01/17/22 propranolol 120 mg capsule,24 1 cap PO DAILY 06/19/21 01/17/22 hr,extended release albuterol sulfate 90 mcg/actuation 2 puff PO Q4-6H PRN 01/17/22 01/17/22 aerosol inhaler diphenhydramine HCl 25 mg tablet 2 tab PO BEDTIME PRN 01/17/22 01/17/22 (Banophen) fluticasone propionate 110 1 puff INHALATION BID 01/17/22 01/17/22 mcg/actuation HFA aerosol inhaler (Flovent HFA) mirtazapine 30 mg tablet 1 tab PO BEDTIME 01/17/22 01/17/22 risperidone 1 mg tablet 1.5 tab PO BEDTIME 01/17/22 01/17/22 Previous Rx's Medication Instructions Recorded albuterol sulfate 2.5 mg (3 mL) INHALATION Q4-6H PRN 01/19/22 #90 ml azithromycin 250 mg tablet 250 mg PO DAILY 2 Days #2 tab 01/19/22 cefuroxime axetil 500 mg tablet 500 mg PO BID 2 Days #4 tab 01/19/22 lidocaine 4 % topical patch 1 patch TOPICAL DAILY PRN #10 ea 01/19/22 prednisone 20 mg tablet 40 mg PO DAILY #4 tab 01/19/22 ibuprofen 400 mg tablet 400 mg PO Q6H PRN #60 tab 02/01/22 Allergies Allergy/AdvReac Type Severity Reaction Status Date / Time codeine Allergy Mild RASH Verified 08/17/21 13:16 [From Tylenol-Codeine #3] levofloxacin [From LEVAQUIN] Allergy Mild Rash Verified 08/17/21 13:16 metoclopramide [From Reglan] Allergy Mild RASH Verified 08/17/21 13:16 acetaminophen Allergy Unknown Unknown Verified 08/17/21 13:16 [Tylenol-Codeine #3] Motrin Allergy Unknown REflux Verified 08/17/21 13:16 Penicillins [PENICILLINS] Allergy Unknown RASH Verified 08/17/21 13:16 tramadol [From Ultram] AdvReac Mild N/V Verified 08/17/21 13:16 penicillin Allergy Intermediate Rash Uncoded 01/18/22 20:14 SEASONAL ALLERGIES Allergy Intermediate EYE Uncoded 06/06/21 16:07 DRAINAGE Review of Systems Review of Systems: All other systems are reviewed and are negative Constitutional: Reports as per HPI and Reports no additional constitutional complaints Eyes: Reports as per HPI and Reports no additional eye complaints Reports system reviewed and no additional complaints, except as documented Cardiovascular: Reports as per HPI and Reports no additional cardiovascular complaints Respiratory: Reports as per HPI and Reports no additional respiratory complaints Gastrointestinal: Reports as per HPI and Reports no additional gastrointestinal complaints Genitourinary: Reports no additional female genitourinary complaints Musculoskeletal: Reports no additional musculoskeletal complaints Skin/Breast: Reports system reviewed and no additional complaints, except as docu Psychiatric: Reports no additional psychiatric complaints Endocrine: Reports no additional endocrine complaints Hematologic/Lymphatic: Reports no additional hematologic/lymphatic complaints Allergic/Immunologic: Reports no additional allergic/immunologic complaints Reports system reviewed and no additional complaints, except as documented and Reports Abnormal speech present PMFSH Past Medical History Medical History Asthma Depression Hemorrhoids Hepatitis C HIV (human immunodeficiency virus infection) Kidney stones Pleuritic chest pain Pneumonia Substance abuse Surgical History H/O hemorrhoidectomy Social History Social History Household Members: None Housing: Apartment Do you presently have visiting nurse or other home services: Yes ([employer]) Alcohol intake: never Patient Tobacco Use Status: Never used Tobacco Second Hand Smoke Exposure: No Advance Directives: Yes Advance Directives on File: Yes Advance Directives Date on File: 04/25/21 service: No Current occupational status: disabled Physical Exam Vital Signs: Vital Signs: Last Vital Signs Temp 98.1 F 02/10/22 04:20 Pulse 77 02/10/22 04:20 Resp 24 H 02/10/22 05:10 BP 155/97 H 02/10/22 04:20 Pulse Ox 97 02/10/22 04:20 Oxygen Flow Rate 4 02/10/22 02:18 BMI result Body Mass Index 27.4 Vital signs have been reviewed as appeared to be correct. Blood pressure normal. Heart rate normal. Respiration rate normal. Temperature normal. Oxygen saturation normal. Appearance: Alert. Oriented X3. No acute distress. Head: Normal external exam. Normocephalic. Atraumatic. No [place] signs noted. No raccoon eyes noted Eyes: PERRLA. EOMI. Conjunctiva and sclera normal. Eyelids normal. ENT: TM's Normal. Pharynx normal. Uvula midline. Moist mucous membranes. No trismus noted. No drooling noted. No muffled voice noted. Neck: Normal inspection. Neck supple. FROM. No adenopathy. Thyroid Normal. No meningeal signs. No neck mass noted. CVS: Normal heart rate and rhythm. Heart sound normal. No murmurs noted. Pulses normal throughout. Respiratory: No respiratory distress. Painless inspiration. Breath sounds normal. No wheezes/rales/rhonchi noted. Chest nontender. No accessory muscle usage noted or decreased air movement noted. Abdomen: Soft and nontender. Bowel sounds normal in all 4 quadrants. No distention noted. No organomegaly noted. No visible injury noted. Back: No CVA tenderness. Full range of motion noted. Skin: Skin warm and dry. Normal skin color. Normal skin turgor. No rashes/lesions/lacerations noted. Extremities: No lower extremity edema. Extremities exhibit normal range of motion. Extremities nontender. Neuro: Oriented X 3. Cranial nerve exam: II-XII are grossly intact No motor deficit. No sensory deficit. Reflexes normal. Course Course Course Narrative: Assessment and plan. Patient's symptoms all resolved, feels better, will discharge the patient with negative workup. MDM - Chest Pain Lab Data Attestation: I reviewed the patient's lab results. Result diagrams: 02/10/22 02:34 02/10/22 02:34 Labs: Lab Results 02/10/22 02/10/22 02/10/22 Range/Units 02:34 02:34 02:34 WBC 4.4 L (4.8-10.8) X10*3/uL RBC 4.23 L (4.60-5.80) X10*6/uL Hgb 13.1 L (14.0-18.0) g/dl Hct 39.6 L (42.0-52.0) % MCV 93.6 (80.0-98.0) fL MCH 31.0 (27.0-33.0) pg MCHC 33.1 (31.0-36.0) g/dl RDW 14.1 (11.0-16.0) % Plt Count 219 (160-400) X10*3/uL MPV 10.6 (9.4-12.4) fL Immature Gran % (Auto) 0.2 (0.0-0.4) % Neut % (Auto) 45.8 (45-73) % Lymph % (Auto) 33.3 (20-40) % Reagan % (Auto) 15.0 H (2-11) % Eos % (Auto) 5.0 H (0-4) % Baso % (Auto) 0.7 (0-2) % Lymph # (Auto) 1.5 (1.2-4.9) X10*3/uL Reagan # (Auto) 0.7 (0.1-1.2) X10*3/uL Eos # (Auto) 0.2 (0.0-0.4) X10*3/uL Baso # (Auto) 0.0 (0.0-0.2) X10*3/uL Abs Immat Gran (auto) 0.01 (0.00-0.03) X10*3/uL Absolute Neuts (auto) 2.0 (2.0-8.3) x10*3/uL Absolute Nucleated RBC 0.000 (0.0-0.012) X10*3/uL Nucleated RBC % (auto) 0.0 (0.0-0.2) /100WBC Sodium 144 (135-145) mmol/L Potassium 3.3 D (3.3-5.1) mmol/L Chloride 109 H (96-108) mmol/L Carbon Dioxide 26 (22-29) mmol/L Anion Gap 12 (12-20) BUN 9 (9-16) mg/dL Creatinine 1.02 (0.5-1.4) mg/dL Estim Creat Clear Calc 70.3 Estimated GFR > 60 Random Glucose 109 (60-115) mg/dL Calcium 8.9 (8.4-10.2) mg/dL Total Bilirubin 0.3 (0.0-1.0) mg/dL AST 14 (5-37) U/L ALT 20 (0-40) U/L Alkaline Phosphatase 67 (39-117) U/L Troponin I High Sens 4.8 (<3.5-35.0) ng/L Total Protein 6.7 (6.5-8.0) g/dL Albumin 3.8 (3.5-5.0) g/dL COVID-19 (TAMMIE) (Negative) COVID-19 Clin Com Influenza Type A (KEVON) (Negative) Influenza Type B (KEVON) (Negative) Influenza A & B Note 02/10/22 02/10/22 Range/Units 02:34 02:34 WBC (4.8-10.8) X10*3/uL RBC (4.60-5.80) X10*6/uL Hgb (14.0-18.0) g/dl Hct (42.0-52.0) % MCV (80.0-98.0) fL MCH (27.0-33.0) pg MCHC (31.0-36.0) g/dl RDW (11.0-16.0) % Plt Count (160-400) X10*3/uL MPV (9.4-12.4) fL Immature Gran % (Auto) (0.0-0.4) % Neut % (Auto) (45-73) % Lymph % (Auto) (20-40) % Reagan % (Auto) (2-11) % Eos % (Auto) (0-4) % Baso % (Auto) (0-2) % Lymph # (Auto) (1.2-4.9) X10*3/uL Reagan # (Auto) (0.1-1.2) X10*3/uL Eos # (Auto) (0.0-0.4) X10*3/uL Baso # (Auto) (0.0-0.2) X10*3/uL Abs Immat Gran (auto) (0.00-0.03) X10*3/uL Absolute Neuts (auto) (2.0-8.3) x10*3/uL Absolute Nucleated RBC (0.0-0.012) X10*3/uL Nucleated RBC % (auto) (0.0-0.2) /100WBC Sodium (135-145) mmol/L Potassium (3.3-5.1) mmol/L Chloride (96-108) mmol/L Carbon Dioxide (22-29) mmol/L Anion Gap (12-20) BUN (9-16) mg/dL Creatinine (0.5-1.4) mg/dL Estim Creat Clear Calc Estimated GFR Random Glucose (60-115) mg/dL Calcium (8.4-10.2) mg/dL Total Bilirubin (0.0-1.0) mg/dL AST (5-37) U/L ALT (0-40) U/L Alkaline Phosphatase (39-117) U/L Troponin I High Sens (<3.5-35.0) ng/L Total Protein (6.5-8.0) g/dL Albumin (3.5-5.0) g/dL COVID-19 (TAMMIE) Negative (Negative) COVID-19 Clin Com See Note Influenza Type A (KEVON) Negative (Negative) Influenza Type B (KEVON) Negative (Negative) Influenza A & B Note See Note Imaging Data Chest x-ray: Attestation: I personally reviewed and interpreted this imaging study as follows: Radiologist's impression: No acute cardiopulmonary findings. ECG Data ECG #1: Attestation: I personally reviewed and interpreted this ECG as follows: Interpretation: Normal sinus rhythm at 85 beats per minutes, normal intervals, incomplete right bundle-branch block, no change from previous EKG. Discharge Plan Discharge Clinical Impression: Atypical chest pain, Migraine Patient Disposition: Home, Self-Care Instructions: Migraine Headache (ED) Prescriptions: No Action gabapentin 600 mg tablet 1 tab PO TID 0RF clonazepam 1 mg tablet 1 tab PO BEDTIME 0RF tramadol 50 mg tablet 1 tab PO DAILY 0RF acetaminophen 500 mg tablet 1 tab PO BID PRN (Reason: pain) 0RF Biktarvy 50-200-25 mg tablet 1 tab PO DAILY 0RF amlodipine 5 mg tablet 1 tab PO DAILY 0RF propranolol 120 mg capsule,extended release 24 hr 1 cap PO DAILY 0RF diphenhydramine HCl [Banophen] 25 mg tablet 2 tab PO BEDTIME PRN (Reason: Insomnia) 0RF risperidone 1 mg tablet 1.5 tab PO BEDTIME 0RF Flovent HFA 110 mcg/actuation HFA aerosol inhaler 1 puff inhalation BID 0RF mirtazapine 30 mg tablet 1 tab PO BEDTIME 0RF albuterol sulfate 90 mcg/actuation HFA aerosol inhaler 2 puff PO Q4-6H PRN (Reason: Wheezing) 0RF prednisone 20 mg tablet 40 mg PO DAILY Qty: 4 0RF cefuroxime axetil 500 mg tablet 500 mg PO BID 2 Days Qty: 4 0RF azithromycin 250 mg tablet 250 mg PO DAILY 2 Days Qty: 2 0RF Rx Instructions: start on day 2 of therapy lidocaine 4 % adhesive patch,medicated 1 patch topical DAILY PRN (Reason: chest wall pain) Qty: 10 0RF albuterol sulfate 2.5 mg /3 mL (0.083 %) solution for nebulization 2.5 mg inhalation Q4-6H PRN (Reason: shortness of breath or wheezing) Qty: 90 0RF ibuprofen 400 mg tablet 400 mg PO Q6H PRN (Reason: Pain) Qty: 60 0RF Referrals: Lora Villavicencio MD [Primary Care Provider] -
[2022-02-10 06:54] LABS: Troponin-I High Sensitivity 4.4 ng/L (<3.5-35.0)
== END 2022-02-10 06:46 | disposition home or self-care (01) ==
PROVIDERS: Emergency Provider Emergency Medicine; PCP Internal Medicine
DX: R07.89 Other chest pain (principal); G43.009 Migraine without aura, not intractable, without status migrainosus; J45.909 Unspecified asthma, uncomplicated; B20 Human immunodeficiency virus [HIV] disease; Z20.822 Contact with and (suspected) exposure to COVID-19
CPT/HCPCS: 36415; 71046; 80053; 84484; 85025; 87502; 87635; 93005; 96361; 96374; 99283; 99284; J2270

== ENCOUNTER 2022-02-11 23:46 | Inpatient (IN) | payer OTHER, SELFPAY ==
--- NOTE | ~2022-02-11 | FL_ITS ---
EXAMINATION: XR FLUOROSCOPY WITH IMAGES CLINICAL INFORMATION: Left tibial nailing for fracture. COMPARISON: Left ankle performed earlier today 1:17 AM TECHNIQUE: Fluoroscopy performed by Dr. Beard time: 1.2 minutes DAP: 0.106 mGycm2 Images: 4 FINDINGS: There is intramedullary tibial hesham stabilizing comminuted tibial fracture the hesham is stabilized with 2 screws at the bottom. Comminuted fibular fracture appears in alignment on AP and lateral views.. FL/FL guidance in OR IMPRESSION: Stabilized tibial distal tibial comminuted fracture with and intramedullary femoral hesham and 2 screws at the bottom. The fracture fragments in alignment. Comminuted distal femoral fracture is in alignment as well.
--- NOTE | ~2022-02-11 | XR_ITS ---
EXAMINATION: XR ANKLE, LEFT XR FOOT, LEFT CLINICAL INFORMATION: Fall COMPARISON: None TECHNIQUE: 2 views of the left ankle. 2 views of the left foot. FINDINGS: There is a comminuted fracture of the distal tibial diaphysis. The major distal fragment demonstrate approximately one half shaft with anterior displacement and lateral angulation; no definite intra-articular extension to the ankle is seen. There is a comminuted fracture of the distal fibular diaphysis with one shaft width lateral displacement of the major distal fragment. The distal tibial and fibular fragments appear to remain aligned with the talus. No additional osseous findings identified in the foot. There is soft tissue swelling around the fracture sites in the distal leg. XR/XR foot LT min 3V IMPRESSION: Comminuted fractures of the distal tibia and fibula with displacement as described above. Articular alignment at the ankle appears preserved.
--- NOTE | ~2022-02-11 | XR_ITS ---
EXAMINATION: XR ANKLE, LEFT XR FOOT, LEFT CLINICAL INFORMATION: Fall COMPARISON: None TECHNIQUE: 2 views of the left ankle. 2 views of the left foot. FINDINGS: There is a comminuted fracture of the distal tibial diaphysis. The major distal fragment demonstrate approximately one half shaft with anterior displacement and lateral angulation; no definite intra-articular extension to the ankle is seen. There is a comminuted fracture of the distal fibular diaphysis with one shaft width lateral displacement of the major distal fragment. The distal tibial and fibular fragments appear to remain aligned with the talus. No additional osseous findings identified in the foot. There is soft tissue swelling around the fracture sites in the distal leg. XR/XR ankle LT min 3V IMPRESSION: Comminuted fractures of the distal tibia and fibula with displacement as described above. Articular alignment at the ankle appears preserved.
[2022-02-12] VITALS (15 sets, daily range): BP systolic 122–174; BP diastolic 89–101; PULSE 70–100; RESP 15–18; TEMP 36.6–37.6; O2SAT 93–99; BMI 26.7
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
[2022-02-12] MEDS: HYDROmorphone HCl 0.5 MG/0.5 ML SYRINGE IVPUSH ×2 (02:00→05:25)
[2022-02-12] MEDS: HYDROmorphone HCl 1 MG/ML SYRINGE 0.25 MG IVPUSH ×4 (02:58→20:01)
[2022-02-12] MEDS: oxyCODONE HCl Immed Release 5 MG TABLET 10 MG PO ×2 (02:59→16:20)
[2022-02-12] MEDS: Lactated Ringers 1,000 ML 100 ML IVCONT ×2 (03:00→20:08)
[2022-02-12 03:41] LABS: MANUAL DIFF FLAG NO
[2022-02-12 03:43] LABS: Basophils Percent Auto 0.3 % (0-2); Eosinophils Absolute Auto 0.1 X10*3/uL (0.0-0.4); Eosinophils Percent Auto 0.9 % (0-4); Hematocrit 38.4 % (42.0-52.0); Hemoglobin 12.9 g/dl (14.0-18.0); Imm Gran Abs Auto 0.02 X10*3/uL (0.00-0.03); Imm Gran Pct Auto 0.3 % (0.0-0.4); Lymphocytes Absolute Auto 1.1 X10*3/uL (1.2-4.9); Lymphocytes Percent Auto 16.5 % (20-40); Mean Corpuscular HGB Conc 33.6 g/dl (31.0-36.0); Mean Corpuscular Hemoglobin 31.2 pg (27.0-33.0); Mean Platelet Volume 10.8 fL (9.4-12.4); Monocytes Absolute Auto 0.6 X10*3/uL (0.1-1.2); Monocytes Percent Auto 8.2 % (2-11); Neutrophils Percent Auto 73.8 % (45-73); Platelet Count 254 X10*3/uL (160-400); Red Blood Count 4.13 X10*6/uL (4.60-5.80); Red Cell Distribution Width 13.9 % (11.0-16.0); White Blood Count 6.8 X10*3/uL (4.8-10.8)
[2022-02-12 03:57] LABS: COVID-19 Test Negative (Negative); IDNOW Serial# 16C4AD1C
[2022-02-12 03:58] LABS: Anion Gap 13 (12-20); Blood Urea Nitrogen 10 mg/dL (9-16); Calcium 9.2 mg/dL (8.4-10.2); Carbon Dioxide 26 mmol/L (22-29); Chloride 107 mmol/L (96-108); Creatinine Clr Calc Pharmacy 89.6; Estimated Glomerular Filt Rate > 60; Glucose Random 110 mg/dL (60-115); Potassium 3.8 mmol/L (3.3-5.1); Sodium 142 mmol/L (135-145)
--- NOTE | 2022-02-12 04:31 | PC.NURSE ---
Report called in to STEPHANIE Guadalupe-patient to assigned bed 385-1.
[2022-02-12] MEDS: 0.9 % Sodium Chloride Flush 3 ML SYRINGE IVFLUSH (08:54)
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
--- NOTE | 2022-02-12 09:22 | PHA.MEDREC ---
Pharmacy Consult ? Medication Reconciliation Pharmacy has completed the medication reconciliation. Spoke with patient in [id number]. Patient knew all medications. Patient is not taking ibuprofen or terbinafine. Patient took one dose of terbinafine and had side effects and MD told him to stop.
[2022-02-12] MEDS: vancomycin HCL 1,000 MG in 0.9 % Sodium Chloride 250 ML 270 MG IV (09:34)
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
[2022-02-12 11:55] LABS: Amphetamine Screen Urine Not Detected (Not Detect); Barbiturates, Urine Not Detected (Not Detect); Benzodiazepines Screen Urine POSITIVE (Not Detect); Cannabinoid Screen Urine Not Detected (Not Detect); Cocaine Screen Urine POSITIVE (Not Detect); Fentanyl, urine POSITIVE (Not Detect); Opiate Screen Urine POSITIVE (Not Detect); Phencyclidine Screen Urine Not Detected (Not Detect)
--- NOTE | 2022-02-12 13:12 | P.CONAN_ITS ---
HPI - Anesthesia Eval Consult details Narrative: left tibia and fibula fracture [facility] Active Problems Active Problems: All Active Problems (Updated 02/12/22 @ 09:26 by Stefanie Linares PA-C) Fx shaft fibula-closed (Acute) Fracture of tibial shaft, closed (Acute) Closed fracture of leg (Acute) Acute respiratory failure with hypoxia (Acute) Mild persistent asthma with (acute) exacerbation (Acute) Atypical pneumonia (Acute) Asthma with exacerbation (Acute) Hepatitis C (Acute) Abscess of lung (Acute) Abscess of left lung with pneumonia (Acute) Abscess of lower lobe of right lung with pneumonia (Acute) Lung abscess (Acute) HIV (human immunodeficiency virus infection) (Acute) Shingles (Acute) Past Medical History Medical History Asthma Depression Hemorrhoids Hepatitis C HIV (human immunodeficiency virus infection) Kidney stones Pleuritic chest pain Pneumonia Substance abuse Family History Family history of problems with anesthesia: No Surgical History Surgical History H/O hemorrhoidectomy History of Problems with Anesthesia: No Social History Social History Household Members: Family Housing: Apartment Do you presently have 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 If so, by whom?: No Do you feel safe in your current relationship?: No Current Relationship Is there a partner from a previous relationship who is making you feel unsafe now?: No Are you made to feel afraid or neglected: No Advance Directives: Yes Advance Directives on File: Yes Advance Directives Date on File: 04/25/21 Do you have thoughts of harming others: None Do you have a plan to hurt others: No Plan Recently lost weight without trying: No Eating poorly because of decreased appetite: No Nutrition Risks: No Nutritional Risk Poor oral hygiene: No service: No Current occupational status: disabled Meds Allergies Allergy/AdvReac Type Severity Reaction Status Date / Time codeine Allergy Mild RASH Verified 08/17/21 13:16 [From Tylenol-Codeine #3] levofloxacin [From LEVAQUIN] Allergy Mild Rash Verified 08/17/21 13:16 metoclopramide [From Reglan] Allergy Mild RASH Verified 08/17/21 13:16 acetaminophen Allergy Unknown Unknown Verified 08/17/21 13:16 [Tylenol-Codeine #3] Motrin Allergy Unknown REflux Verified 08/17/21 13:16 Penicillins [PENICILLINS] Allergy Unknown RASH Verified 08/17/21 13:16 tramadol [From Ultram] AdvReac Mild N/V Verified 08/17/21 13:16 penicillin Allergy Intermediate Rash Uncoded 01/18/22 20:14 SEASONAL ALLERGIES Allergy Intermediate EYE Uncoded 06/06/21 16:07 DRAINAGE Active Medications: Current Medications Albuterol Sulfate (Albuterol Sulfate 90 Mcg 8 Gm Inhaler) 2 puff INHALE Q4H PRN PRN Reason: Wheezing/sob Albuterol Sulfate (Albuterol Sulfate (0.083%) 2.5 Mg/3 Ml Vial.Neb) 2.5 mg INHALE Q4H PRN PRN Reason: shortness of breath or wheezing Amlodipine Besylate (Amlodipine Besylate 5 Mg Tablet) 5 mg PO DAILY [facility]; Protocol Bictegravir/Emtricitabine/Tenofovir (Bictegrav/Emtricit/Tenofov Ala Tablet) 1 tab PO DAILY [facility] Last Admin: 02/12/22 11:30 Dose: Not Given Documented by: Clonazepam (Clonazepam 1 Mg Tablet) 1 mg PO BEDTIME [facility] Docusate Sodium (Docusate Sodium 100 Mg Capsule) 100 mg PO BID [facility] Last Admin: 02/12/22 08:54 Dose: Not Given Documented by: Fluticasone Propionate (Fluticasone Propionate 100 Mcg Blst.W.Dev) 1 puff INHALE BID [facility] Gabapentin (Gabapentin 600 Mg Tablet) 600 mg PO TID [facility] Hydromorphone HCl (Hydromorphone Hcl 1 Mg/Ml Syringe) 0.25 mg IVPUSH Q4H PRN; Protocol PRN Reason: Pain, Severe (Pain Scale 7-10) Last Admin: 02/12/22 12:46 Dose: 0.25 mg Documented by: Lactated Ringer's (Lr) 1,000 mls @ 100 mls/hr IVCONT .Q10H [facility] Last Admin: 02/12/22 03:00 Dose: 100 mls/hr Documented by: Mirtazapine (Mirtazapine 15 Mg Tablet) 45 mg PO BEDTIME [facility]EL Ondansetron HCl (Ondansetron Hcl 4 Mg/2 Ml Vial) 4 mg IVPUSH Q8H PRN PRN Reason: Nausea and Vomiting Oxycodone HCl (Oxycodone Hcl Immed Release 5 Mg Tablet) 10 mg PO Q4H PRN PRN Reason: Pain, Moderate (Pain Scale 4-6 Last Admin: 02/12/22 02:59 Dose: 10 mg Documented by: Oxycodone HCl (Oxycodone Hcl Er 10 Mg Tab.Er.12h) 10 mg PO BID [facility] Last Admin: 02/12/22 08:54 Dose: Not Given Documented by: Propranolol HCl (Propranolol Hcl La 60 Mg Cap.Sa.24h) 120 mg PO DAILY [facility]; Protocol Last Admin: 02/12/22 11:30 Dose: Not Given Documented by: Risperidone (Risperidone 2 Mg Tablet) 2 mg PO BEDTIME [facility] Sodium Chloride (0.9 % Sodium Chloride Flush 3 Ml Syringe) 3 ml IVFLUSH QSHIFT [facility] Last Admin: 02/12/22 08:54 Dose: 3 ml Documented by: Home Medications Medication Instructions Recorded Confirmed Last Taken Type clonazepam 1 mg tablet 1 tab PO BEDTIME 04/21/21 02/12/22 06/05/21 History gabapentin 600 mg tablet 1 tab PO TID 04/21/21 02/12/22 06/05/21 History tramadol 50 mg tablet 1 tab PO DAILY 04/21/21 02/12/22 06/05/21 History acetaminophen 500 mg tablet 1 tab PO BID PRN 06/06/21 02/12/22 06/05/21 History bictegravir 50 mg-emtricitabine 1 tab PO DAILY 06/06/21 02/12/22 06/05/21 History 200 mg-tenofovir alafenam 25 mg tablet (Biktarvy) amlodipine 5 mg tablet 1 tab PO DAILY 06/19/21 02/12/22 Unknown History propranolol 120 mg capsule,24 1 cap PO DAILY 06/19/21 02/12/22 Unknown History hr,extended release albuterol sulfate 90 mcg/actuation 2 puff PO Q4H PRN 01/17/22 02/12/22 Unknown History aerosol inhaler diphenhydramine HCl 25 mg tablet 2 tab PO BEDTIME PRN 01/17/22 02/12/22 Unknown History (Banophen) fluticasone propionate 110 1 puff INHALATION BID 01/17/22 02/12/22 Unknown History mcg/actuation HFA aerosol inhaler (Flovent HFA) albuterol sulfate 2.5 mg INHALATION Q4H PRN 02/12/22 02/12/22 Unknown History food supplemt, lactose-reduced 1 ea PO TID 02/12/22 02/12/22 Unknown History (Ensure) mirtazapine 45 mg tablet 1 tab PO BEDTIME 02/12/22 02/12/22 Unknown History pantoprazole 40 mg tablet,delayed 1 tab PO DAILY 02/12/22 02/12/22 Unknown History release risperidone 2 mg tablet 1 tab PO BEDTIME 02/12/22 02/12/22 Unknown History Exam Exam Date and Time: February 12, 2022 1312 Height,Weight and Vital Signs: Height 5 ft 8 in Weight 79.746 kg Last Vital Signs Temp 99.6 F 02/12/22 11:34 Pulse 77 02/12/22 11:34 Resp 18 02/12/22 11:34 BP 165/94 H 02/12/22 11:34 Pulse Ox 97 02/12/22 11:34 Pertinent Lab Results Pertinent Lab Results: Laboratory Tests 02/12/22 02/12/22 02/12/22 03:21 03:21 03:22 WBC 6.8 RBC 4.13 L Hgb 12.9 L Hct 38.4 L MCV 93.0 MCH 31.2 MCHC 33.6 RDW 13.9 Plt Count 254 MPV 10.8 Immature Gran % (Auto) 0.3 Neut % (Auto) 73.8 H Lymph % (Auto) 16.5 L [place] % (Auto) 8.2 Eos % (Auto) 0.9 Baso % (Auto) 0.3 Lymph # (Auto) 1.1 L [place] # (Auto) 0.6 Eos # (Auto) 0.1 Baso # (Auto) 0.0 Abs Immat Gran (auto) 0.02 Absolute Neuts (auto) 5.0 Absolute Nucleated RBC 0.000 Nucleated RBC % (auto) 0.0 Sodium 142 Potassium 3.8 Chloride 107 Carbon Dioxide 26 Anion Gap 13 BUN 10 Creatinine 0.88 Estim Creat Clear Calc 89.6 Estimated GFR > 60 Random Glucose 110 Calcium 9.2 Urine Opiates Screen Urine Fentanyl Screen Ur Barbiturates Screen Ur Phencyclidine Scrn Ur Amphetamines Screen U Benzodiazepines Scrn Urine Cocaine Screen U Marijuana (THC) Screen COVID-19 ([facility]) COVID-19 Clin Com Blood Type O Positive Antibody Screen NEGATIVE 02/12/22 02/12/22 03:27 11:15 WBC RBC Hgb Hct MCV MCH MCHC RDW Plt Count MPV Immature Gran % (Auto) Neut % (Auto) Lymph % (Auto) [place] % (Auto) Eos % (Auto) Baso % (Auto) Lymph # (Auto) [place] # (Auto) Eos # (Auto) Baso # (Auto) Abs Immat Gran (auto) Absolute Neuts (auto) Absolute Nucleated RBC Nucleated RBC % (auto) Sodium Potassium Chloride Carbon Dioxide Anion Gap BUN Creatinine Estim Creat Clear Calc Estimated GFR Random Glucose Calcium Urine Opiates Screen POSITIVE H Urine Fentanyl Screen POSITIVE H Ur Barbiturates Screen Not Detected Ur Phencyclidine Scrn Not Detected Ur Amphetamines Screen Not Detected U Benzodiazepines Scrn POSITIVE H Urine Cocaine Screen POSITIVE H U Marijuana (THC) Screen Not Detected COVID-19 ([facility]) Negative COVID-19 Clin Com See Note Blood Type Antibody Screen Airway Mallampati Class: II TM Dist: >3cm Neck ROM: Full Loose/Missing/Broken Teeth: No Heart: RRR Lungs: CTA Assessment and Plan Assessment Anesthesia Assessment: Anesthesia Plan Discussed and Chart Reviewed Final Anesthetic Review Family History of Problems with Anesthesia: No History of Problems with Anesthesia: No NPO: Yes ASA Class: III Final Preanesthetic Review: No Changes in Pt Med Stat, Meds/Allgs Chart Reviewed, Consent Obtained/Reviewed and Anes Risks/Benef Reviewed Patient Risk: Intermediate Procedure Risk: Intermediate Anesthetic Plan Anesthetic Plan: GA Disposition: Standard PACU
--- NOTE | 2022-02-12 15:59 | P.BOP_ITS ---
Brief Operative Note Date of Service: 02/12/22 Pre-op diagnosis: left tibia fracture Post-op diagnosis: same Procedure: IMN left tibia Implants: [place] [id number] with 2 distal and 2 proximal interlocking screws Surgeon: Delta Beard MD Anesthesia: GETA and local Was an Energy Professional used for this Procedure?: No Estimated blood loss (mL): 200 IV fluids (mL): 900 Pathology: none sent Condition: stable Disposition: PACU
[2022-02-12] MEDS: ceFAZolin Sodium/Dextrose,Iso 2 GM/50 ML PIGGYBACK IV (20:02)
[2022-02-12] MEDS: clonazePAM 1 MG TABLET PO (20:16)
[2022-02-12] MEDS: oxyCODONE HCl ER 10 MG TAB.ER.12H PO (20:16)
[2022-02-12] MEDS: Docusate Sodium 100 MG CAPSULE PO (20:16)
[2022-02-12] MEDS: Mirtazapine 15 MG TABLET 45 MG PO (20:17)
[2022-02-12] MEDS: risperiDONE 2 MG TABLET PO (20:17)
[2022-02-12] MEDS: Gabapentin 600 MG TABLET PO (20:17)
[2022-02-12] MEDS: Fluticasone Propionate 100 MCG BLST.W.DEV 1 PUFF INHALE (20:40)
[2022-02-13] VITALS (8 sets, daily range): BP systolic 142–183; BP diastolic 80–104; PULSE 74–101; RESP 15–18; TEMP 36.6–37.7; O2SAT 90–95
[2022-02-13] MEDS: oxyCODONE HCl Immed Release 5 MG TABLET 10 MG PO (03:11)
[2022-02-13] MEDS: HYDROmorphone HCl 1 MG/ML SYRINGE 0.25 MG IVPUSH ×4 (04:54→23:14)
[2022-02-13] MEDS: Lactated Ringers 1,000 ML 100 ML IVCONT (05:00)
[2022-02-13] MEDS: Fluticasone Propionate 100 MCG BLST.W.DEV 1 PUFF INHALE (07:40)
[2022-02-13 08:12] LABS: Hematocrit 32.9 % (42.0-52.0); Hemoglobin 10.8 g/dl (14.0-18.0)
--- NOTE | 2022-02-13 08:29 | PM.PNORT ---
Subjective Subjective Date of Service: 02/13/22 Interval history: POD1 s/p lt tib ORIF with Dr. Beard. Patient is resting in bed comfortably. No overnight events. Pain is well manged. No adidtional complaints. Physical Exam Vital Signs: Vital Signs: Last Vital Signs Temp 99.2 F 02/13/22 07:22 Pulse 101 H 02/13/22 07:41 Resp 18 02/13/22 07:41 BP 163/94 H 02/13/22 07:22 Pulse Ox 93 02/13/22 07:22 BMI result Body Mass Index 26.7 Const: General: cooperative, healthy appearing and no acute distress Resp: Effort & Inspection: normal respiratory effort and able to speak in complete sentences Cardio: Rate: regular rate Peripheral pulses: Peripheral pulses 2+ throughout GI: Palpation (GI): Soft to palpation Skin: Lesions: no lesions Rashes: no rashes Extrem: Other: Left lower extremity splint is clean dry and intact. Able to slightly dorsiflex and plantarflex. Sensatin intact. NVI. Procedures Date of Service Date of Service: 02/13/22 Progress Note: A&P Assessment and plan (1) Fx shaft fibula-closed: Status: Acute Assessment and Plan: Continue pain mgmnt Begin Lovenox for dvt ppx begin PT for left tibial ORIF - WBAT in boot Dispo planning-Pending PT eval, pain mgmnt (2) Fracture of tibial shaft, closed: Status: Acute Time Spent With Patient Time: Total time spent is greater than 50% in coordination of care (as documented) at patient's floor/unit and/or counseling patient: Quality Stroke Does the patient have a stroke diagnosis?: No VTE Prior VTE?: No VTE Risk Level:: Surgical - very high VTE Device Contraindication: N/A - Device Ordered VTE Drug Contraindication: Treatment Not Indicated
[2022-02-13] MEDS: Gabapentin 600 MG TABLET PO ×2 (08:42→16:20)
[2022-02-13] MEDS: Propranolol HCL LA 60 MG CAP.SA.24H 120 MG PO (08:42)
[2022-02-13] MEDS: Docusate Sodium 100 MG CAPSULE PO (08:42)
[2022-02-13] MEDS: oxyCODONE HCl ER 10 MG TAB.ER.12H PO (08:42)
[2022-02-13] MEDS: Bictegrav/Emtricit/Tenofov Ala TABLET 1 TAB PO (08:42)
[2022-02-13] MEDS: amLODIPine Besylate 5 MG TABLET PO (08:42)
--- NOTE | 2022-02-13 09:43 | MHC.CM.PN ---
PATIENT LIVES ALONE. 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 VAX X 3. PHYSICAL THERAPY IS RECOMMENDING SHORT TERM REHAB. UPON ENTRANCE TO ROOM, PATIENT TELLS THIS WATER TREATMENT TECHNICIAN THAT HE IS IN 9/10 PAIN AND I NEED MORE MEDICATION WHEN ASKED WHEN HE LAST RECEIVED PAIN MEDICATION, HE REPORTS 'ALMOST AN HOUR AGO HE ASKS THIS WATER TREATMENT TECHNICIAN TO COME BACK AT A BETTER TIME FOR COMPLETION OF ASSESSMENT AND PREFERENCES FOR HOME WITH SERVICES VERSUS STR. IMM 02/13 IN CHART
--- NOTE | 2022-02-13 10:08 | HO.POSTANES ---
Post Anesthesia Evaluation Post Anesthesia Evaluation Vital Signs: Vital Signs Temp Pulse Resp BP Pulse Ox 02/13/22 07:41 101 H 18 02/13/22 07:22 99.2 F 90 18 163/94 H 93 02/13/22 03:36 98 F 77 18 183/104 H 95 02/12/22 23:57 98.3 F 82 18 174/99 H 94 Anesthesia: General Mental Status: Awake Pain Control: Satisfactory Nausea/Vomiting: None Hydration: Adequate Anesthesia-Related Issues: No Anes. Related Issues
[2022-02-13] MEDS: Enoxaparin Sodium 40 MG/0.4 ML SYRINGE SUBCUT (10:47)
--- NOTE | 2022-02-13 13:38 | HO.PM.IMPN ---
Subjective Subjective Date of Service: 02/13/22 Interval History: complaining of left leg pain, also c/o migraine headache, tolerating diet denies nausea, vomiting, abdominal pain, or diarrhea, receiving narcotics for pain, noted to have elevated blood pressure, hematocrit dropped from 38.4-32.9, denies hematemesis, no melena. Review of Systems General headache, no dizziness ,no fever chills. CVS no chest pain, no palpitation. Respiratory no cough, no sob. Gastrointestinal no nausea no vomiting, no abdominal pain Review of Systems: Yes all other systems are reviewed and are negative Physical Exam Vital Signs: Vital Signs: Last Vital Signs Temp 99.8 F 02/13/22 12:26 Pulse 89 02/13/22 12:26 Resp 18 02/13/22 12:26 BP 164/99 H 02/13/22 12:26 Pulse Ox 94 02/13/22 12:00 BMI result Body Mass Index 26.7 Const: Other: General? awake alert x3, in no acute distress.? Neck supple no JVD. HEENT pupils equal round reactive to light and accommodation, anicteric sclerae CVS? regular rate rhythm, Respiratory lungs clear to auscultation, no respiratory distress, no wheeze, no rhonchi. Gastrointestinal abdomen soft, nontender, bowel sounds audible Extremities? left leg in splint, right leg no edema Neuro nonfocal Skin no rash psych appropriate affect Objective Data Active Medications Albuterol Sulfate (Albuterol Sulfate 90 Mcg 8 Gm Inhaler) 2 puff INHALE Q4H PRN PRN Reason: Wheezing/sob Albuterol Sulfate (Albuterol Sulfate (0.083%) 2.5 Mg/3 Ml Vial.Neb) 2.5 mg INHALE Q4H PRN PRN Reason: shortness of breath or wheezing Amlodipine Besylate (Amlodipine Besylate 5 Mg Tablet) 5 mg PO DAILY [facility]; Protocol Last Admin: 02/13/22 08:42 Dose: 5 mg Documented by: CASEY Bictegravir/Emtricitabine/Tenofovir (Bictegrav/Emtricit/Tenofov Ala Tablet) 1 tab PO DAILY [facility] Last Admin: 02/13/22 08:42 Dose: 1 tab Documented by: CASEY Clonazepam (Clonazepam 1 Mg Tablet) 1 mg PO BEDTIME [facility] Last Admin: 02/12/22 20:16 Dose: 1 mg Documented by: TRIPP Docusate Sodium (Docusate Sodium 100 Mg Capsule) 100 mg PO BID REPLACED BY [facility] Last Admin: 02/13/22 08:42 Dose: 100 mg Documented by: CASEY Enoxaparin Sodium (Enoxaparin Sodium 40 Mg/0.4 Ml Syringe) 40 mg SUBCUT Q24H REPLACED BY [facility] Last Admin: 02/13/22 10:47 Dose: 40 mg Documented by: CASEY Fluticasone Propionate (Fluticasone Propionate 100 Mcg Blst.W.Dev) 1 puff INHALE BID REPLACED BY [facility] Last Admin: 02/13/22 07:40 Dose: 1 puff Documented by: ANITHA Gabapentin (Gabapentin 600 Mg Tablet) 600 mg PO TID REPLACED BY [facility] Last Admin: 02/13/22 08:42 Dose: 600 mg Documented by: CASEY Hydromorphone HCl (Hydromorphone Hcl 1 Mg/Ml Syringe) 0.25 mg IVPUSH Q4H PRN; Protocol PRN Reason: Pain, Severe (Pain Scale 7-10) Last Admin: 02/13/22 10:54 Dose: 0.25 mg Documented by: CASEY Promethazine HCl 12.5 mg/ (Sodium Chloride) 50.5 mls @ 202 mls/hr IV ONCE PRN PRN Reason: Nausea and Vomiting Mirtazapine (Mirtazapine 15 Mg Tablet) 45 mg PO BEDTIME REPLACED BY [facility] Last Admin: 02/12/22 20:17 Dose: 45 mg Documented by: TRIPP Ondansetron HCl (Ondansetron Hcl 4 Mg/2 Ml Vial) 4 mg IVPUSH Q8H PRN PRN Reason: Nausea and Vomiting Oxycodone HCl (Oxycodone Hcl Immed Release 5 Mg Tablet) 10 mg PO Q4H PRN PRN Reason: Pain, Moderate (Pain Scale 4-6 Last Admin: 02/13/22 03:11 Dose: 10 mg Documented by: TRIPP Oxycodone HCl (Oxycodone Hcl Er 10 Mg Tab.Er.12h) 10 mg PO BID REPLACED BY [facility] Last Admin: 02/13/22 08:42 Dose: 10 mg Documented by: CASEY Propranolol HCl (Propranolol Hcl La 60 Mg Cap.Sa.24h) 120 mg PO DAILY REPLACED BY [facility]; Protocol Last Admin: 02/13/22 08:42 Dose: 120 mg Documented by: CASEY Risperidone (Risperidone 2 Mg Tablet) 2 mg PO BEDTIME MICHAEL Last Admin: 02/12/22 20:17 Dose: 2 mg Documented by: TRIPP Labs CBC & Chem 7: 02/13/22 07:31 02/12/22 03:22 Assessment and Plan (1) Fracture of tibial shaft, closed: Status: Acute (2) Hepatitis C: Status: Acute (3) HIV (human immunodeficiency virus infection): Status: Acute Plan 56-year-old gentleman with past medical history of asthma, HIV, anxiety, depression, history of hep C, history of renal stones, history of lung abscess in 2020 history of pleuritic chest pain with multiple visits to the ER with negative workup admitted under Orthopedic Service for left distal tib-fib fracture. Distal left tib-fib fracture? s/p noted to have drop in hematocrit likely related to surgery, hematocrit 32.9, follows hemoglobin hematocrit continue current pain medication , encourage incentive spirometry continue bowel regimen migraine headache take as needed oxycodone/Tylenol History of asthma no acute exacerbation, continue prn albuterol inhaler, and flovent, wean oxygen as tolerated not on home O2 History of chronic intermittent Pleuritic chest pain, no chest pain, no shortness of breath follow clinical course HIV: Continue home Biktarvy Hypertension:? noted to have elevated blood pressures on amlodipine 5 mg and propranolol 120 mg, will increase dose of amlodipine to 10 mg if bp remains elevated. Neuropathy:? continue home dose of gabapentin History of anxiety / depression:? Continue home clonazepam, Mirtazapine, and risperidone DVT prophylaxis:? on Lovenox Quality Stroke Does the patient have a stroke diagnosis?: No VTE Prior VTE?: No VTE Risk Level:: Surgical - very high VTE Device Contraindication: N/A - Device Ordered VTE Drug Contraindication: Treatment Not Indicated
[2022-02-14] VITALS (10 sets, daily range): BP systolic 112–157; BP diastolic 70–97; PULSE 70–78; RESP 16–18; TEMP 36.2–36.8; O2SAT 92–96
[2022-02-14] MEDS: Mirtazapine 15 MG TABLET 45 MG PO ×2 (01:41→20:22)
[2022-02-14] MEDS: oxyCODONE HCl ER 10 MG TAB.ER.12H PO ×3 (01:41→20:23)
[2022-02-14] MEDS: Docusate Sodium 100 MG CAPSULE PO ×3 (01:42→20:23)
[2022-02-14] MEDS: clonazePAM 1 MG TABLET PO ×2 (01:42→20:23)
[2022-02-14] MEDS: HYDROmorphone HCl 1 MG/ML SYRINGE 0.25 MG IVPUSH ×5 (03:28→21:26)
[2022-02-14 05:58] LABS: Hematocrit 32.1 % (42.0-52.0); Hemoglobin 10.8 g/dl (14.0-18.0); Mean Corpuscular HGB Conc 33.6 g/dl (31.0-36.0); Mean Corpuscular Hemoglobin 31.3 pg (27.0-33.0); Platelet Count 203 X10*3/uL (160-400); Red Blood Count 3.45 X10*6/uL (4.60-5.80); Red Cell Distribution Width 13.3 % (11.0-16.0); White Blood Count 8.2 X10*3/uL (4.8-10.8)
[2022-02-14] MEDS: Propranolol HCL LA 60 MG CAP.SA.24H 120 MG PO (07:59)
[2022-02-14] MEDS: Bictegrav/Emtricit/Tenofov Ala TABLET 1 TAB PO (07:59)
[2022-02-14] MEDS: Gabapentin 600 MG TABLET PO ×3 (08:00→20:23)
[2022-02-14] MEDS: amLODIPine Besylate 5 MG TABLET PO (08:00)
[2022-02-14] MEDS: Enoxaparin Sodium 40 MG/0.4 ML SYRINGE SUBCUT (08:00)
[2022-02-14] MEDS: Fluticasone Propionate 100 MCG BLST.W.DEV 1 PUFF INHALE ×2 (09:04→19:01)
--- NOTE | 2022-02-14 09:35 | P.OP_ITS ---
Operative Note Operative Note Date of Service: 02/12/22 Narrative: Date of Service: 02/12/22 Pre-op diagnosis: left tibia fracture Post-op diagnosis: same Procedure: IMN left tibia Implants: [place] [id number] with 2 distal and 2 proximal interlocking screws Surgeon: Delta Beard MD Anesthesia: GETA and local Was an Aircraft [employer]airer used for this Procedure?: No Estimated blood loss (mL): 200 IV fluids (mL): 900 Pathology: none sent Condition: stable Disposition: PACU Procedure in detail: Patient was brought to the operating room and placed supine on the surgical table. He was prepped and draped in standard sterile fashion and a time out was called to identify proper site, proper procedure and IV antibiotics per weight were administered. I began by making a midline incision from the distal pole of the patella down to the tibial tubercle. Sharp dissection was taken down to the paratenon and the paratenon was incised in line with the incision. A trans patellar tendon approach to the anterior knee was taken. Then using biplanar fluoroscopy I selected my start site just anterior to the articular surface and just medial to the lateral tibial spine. Placed my guidewire into the metadiaphysis and then over reamed with my starting Reamer. I then placed my ball-tip guidewire down the shaft of the tibia as through the comminuted distal tibial shaft fracture into the distal tibia using center center location on imaging. Once I was happy with the position of the ball-tipped I reamed to a 12.5 and placed a 11 x 330 mm tibial nail. I was happy with the fracture reduction during reaming and nail placement. Once the nail was sufficiently distal I placed 2 medial lateral screws and then backslapped construct. Again biplanar fluoroscopy was used to confirm fracture reduction and hardware placement. I then placed 2 oblique interlocking screws using the proximal jig. Once this was done I irrigated copiously. At a obtained biplanar fluoroscopic views proximally and distally and was happy with the hardware position and fracture reduction. Layered closure was performed on the distal medial tibia as well as the proximal anterior incision with the patellar tendon and paratenon being closed and ronald on the skin. Patient was placed into a well-padded posterior splint. 30 cc of 0.25% Marcaine was injected around the incisions and patient was extubated brought to recovery room stable condition. There were no known complications.
--- NOTE | 2022-02-14 10:29 | P.PNIM_ITS ---
Subjective Subjective Date of Service: 02/14/22 Interval History: the patient was seen and evaluated this morning Laying in bed, complaining of knee pain Denies any fever, chills or chest pain No reported other overnight events. Review of Systems Systemic review: No fever, chills or weakness No chest pain, palpitation No shortness of breath or coughing No abdominal pain, nausea or vomiting No urinary symptoms No any rash or wounds Knee pain Physical Exam Vital Signs: Vital Signs: Last Vital Signs Temp 97.6 F 02/14/22 07:44 Pulse 74 02/14/22 09:07 Resp 18 02/14/22 09:07 BP 157/94 H 02/14/22 07:44 Pulse Ox 95 02/14/22 07:44 BMI result Body Mass Index 26.7 Const: Other: General? awake interactive, not in distress.? Neck supple no JVD. HEENT pupils equal round reactive to light and accommodation, anicteric sclerae CVS? regular rate rhythm, Respiratory lungs clear to auscultation, no respiratory distress, no wheeze, no rhonchi. Gastrointestinal abdomen soft, nontender, bowel sounds audible Extremities? left leg in splint, right leg no edema Neuro alert, oriented, no focal deficit Skin no rash Objective Data Active Medications Albuterol Sulfate (Albuterol Sulfate 90 Mcg 8 Gm Inhaler) 2 puff INHALE Q4H PRN PRN Reason: Wheezing/sob Albuterol Sulfate (Albuterol Sulfate (0.083%) 2.5 Mg/3 Ml Vial.Neb) 2.5 mg INHALE Q4H PRN PRN Reason: shortness of breath or wheezing Amlodipine Besylate (Amlodipine Besylate 5 Mg Tablet) 5 mg PO DAILY [facility]; Protocol Last Admin: 02/14/22 08:00 Dose: 5 mg Documented by: ANABEL Bictegravir/Emtricitabine/Tenofovir (Bictegrav/Emtricit/Tenofov Ala Tablet) 1 tab PO DAILY [facility] Last Admin: 02/14/22 07:59 Dose: 1 tab Documented by: ANABEL Clonazepam (Clonazepam 1 Mg Tablet) 1 mg PO BEDTIME MICHAEL Last Admin: 02/14/22 01:42 Dose: 1 mg Documented by: TRIPP Docusate Sodium (Docusate Sodium 100 Mg Capsule) 100 mg PO BID [facility] Last Admin: 02/14/22 01:42 Dose: 100 mg Documented by: TRIPP Enoxaparin Sodium (Enoxaparin Sodium 40 Mg/0.4 Ml Syringe) 40 mg SUBCUT Q24H [facility] Last Admin: 02/14/22 08:00 Dose: 40 mg Documented by: ANABEL Fluticasone Propionate (Fluticasone Propionate 100 Mcg Blst.W.Dev) 1 puff INHALE BID [facility] Last Admin: 02/14/22 09:04 Dose: 1 puff Documented by: MIRTHA Gabapentin (Gabapentin 600 Mg Tablet) 600 mg PO TID [facility] Last Admin: 02/14/22 08:00 Dose: 600 mg Documented by: ANABEL Hydromorphone HCl (Hydromorphone Hcl 1 Mg/Ml Syringe) 0.25 mg IVPUSH Q4H PRN; Protocol PRN Reason: Pain, Severe (Pain Scale 7-10) Last Admin: 02/14/22 08:01 Dose: 0.25 mg Documented by: ANABEL Promethazine HCl 12.5 mg/ (Sodium Chloride) 50.5 mls @ 202 mls/hr IV ONCE PRN PRN Reason: Nausea and Vomiting Mirtazapine (Mirtazapine 15 Mg Tablet) 45 mg PO BEDTIME [facility] Last Admin: 02/14/22 01:41 Dose: 45 mg Documented by: TRIPP Ondansetron HCl (Ondansetron Hcl 4 Mg/2 Ml Vial) 4 mg IVPUSH Q8H PRN PRN Reason: Nausea and Vomiting Oxycodone HCl (Oxycodone Hcl Immed Release 5 Mg Tablet) 10 mg PO Q4H PRN PRN Reason: Pain, Moderate (Pain Scale 4-6 Last Admin: 02/13/22 03:11 Dose: 10 mg Documented by: TRIPP Oxycodone HCl (Oxycodone Hcl Er 10 Mg Tab.Er.12h) 10 mg PO BID [facility] Last Admin: 02/14/22 01:41 Dose: 10 mg Documented by: TRIPP Propranolol HCl (Propranolol Hcl La 60 Mg Cap.Sa.24h) 120 mg PO DAILY [facility]; Protocol Last Admin: 02/14/22 07:59 Dose: 120 mg Documented by: ANABEL Risperidone (Risperidone 2 Mg Tablet) 2 mg PO BEDTIME MICHAEL Last Admin: 02/13/22 22:29 Dose: Not Given Documented by: TRIPP Non-Admin Reason: pt sleepy Labs CBC & Chem 7: 02/14/22 05:24 02/12/22 03:22 Labs: Laboratory Results - last 24 hr 02/14/22 05:24 MCV 93.0 MCH 31.3 MCHC 33.6 RDW 13.3 Plt Count 203 MPV 11.0 Absolute Nucleated RBC 0.000 Nucleated RBC % (auto) 0.0 Assessment and Plan (1) Fx shaft fibula-closed: Status: Acute (2) Hypertension: Status: Acute Plan 56-year-old gentleman with past medical history of asthma, HIV, anxiety, depression, history of hep C, history of renal stones, history of lung abscess in 2020 history of pleuritic chest pain with multiple visits to the ER with nega tive workup admitted under Orthopedic Service for left distal tib-fib fracture. Distal left tib-fib fracture? s/p Stable H and H continue current pain medication encourage incentive spirometry continue bowel regimen migraine headache needed oxycodone/Tylenol History of asthma no acute exacerbation, continue prn albuterol inhaler, and flovent, Titrate oxygen as tolerated not on home O2 History of chronic intermittent Pleuritic chest pain no chest pain, no shortness of breath follow clinical course HIV Continue home Biktarvy Hypertension Better controlled Amlodipine increased to 10 mg and continue propranolol 120 mg Continue current medications Neuropathy continue home dose of gabapentin History of anxiety / depression Continue home clonazepam, Mirtazapine, and risperidone DVT prophylaxis on Lovenox Thank you for the consult, will continue to monitor the patient with you Quality Stroke Does the patient have a stroke diagnosis?: No VTE Prior VTE?: No VTE Risk Level:: Surgical - very high VTE Device Contraindication: N/A - Device Ordered VTE Drug Contraindication: Treatment Not Indicated
--- NOTE | 2022-02-14 12:33 | MHC.CM.PN ---
[facility] WILLING TO ATTEMPT A CARVE-OUT FOR ART THERAPY. CASE MANAGEMENT FOLLOWING. PATIENT WANTS [facility]; HOWEVER, NO CONTRACTED FACILITIES ARE WILLING TO OFFER A BED. CASE MANAGEMENT FOLLOWING
--- NOTE | 2022-02-14 14:43 | MHC.CM.PN ---
[facility] HAS AUTH TO ADMIT PATIENT AWARE AND AGREEABLE. WILL NEED LESS THAN 30 DAY EXPECTED STAY AT SNF. AWAITING DC
[2022-02-14] MEDS: oxyCODONE HCl Immed Release 5 MG TABLET 10 MG PO ×2 (15:33→20:23)
[2022-02-14] MEDS: risperiDONE 2 MG TABLET PO (20:24)
--- NOTE | 2022-02-14 21:44 | P.PNOP_ITS ---
Subjective Subjective Date of Service: 02/14/22 Interval history: POD 2 s/p left tibia IMN no overnight events resting in chair with boot on Physical Exam Vital Signs: Vital Signs: Last Vital Signs Temp 98.3 F 02/14/22 19:44 Pulse 74 02/14/22 19:44 Resp 18 02/14/22 19:44 BP 132/91 H 02/14/22 19:44 Pulse Ox 93 02/14/22 19:44 BMI result Body Mass Index 26.7 Const: General: cooperative, healthy appearing and no acute distress Resp: Effort & Inspection: normal respiratory effort and able to speak in complete sentences Cardio: Rate: regular rate Peripheral pulses: Peripheral pulses 2+ throughout GI: Palpation (GI): Soft to palpation Skin: General skin exam: no rashes or lesions noted Extrem: Other: incision clean dry and intact. Jaleesa intact. No erythema or joint effusion. Calf supple nontender. Neurovascularly intact. Procedures Date of Service Date of Service: 02/14/22 Progress Note: A&P Assessment and plan (1) Fx shaft fibula-closed: Status: Acute Assessment and Plan: * Continue pain mgmnt * cont dvt ppx * continue PT for LT tib-wbat * Dispo planning-rehab approval Time Spent With Patient Time: Total time spent is greater than 50% in coordination of care (as documented) at patient's floor/unit and/or counseling patient: Quality Stroke Does the patient have a stroke diagnosis?: No VTE Prior VTE?: No VTE Risk Level:: Surgical - very high VTE Device Contraindication: N/A - Device Ordered VTE Drug Contraindication: Treatment Not Indicated
[2022-02-15 03:32] VITALS: BP 117/69; PULSE 73; RESP 18; TEMP 37; O2SAT 98
[2022-02-15 07:46] VITALS: BP 131/85; PULSE 77; RESP 18; TEMP 36.7; O2SAT 92
--- NOTE | 2022-02-15 08:09 | P.DS_ITS ---
DS: Providers Provider Date of Service: 02/15/22 Date of admission: 02/12/22 02:08 Primary care physician: Akira Lobo MD Consults: 02/12/22 02:08 Consult to Hospitalist Routine Consulting Provider: Hospitalist Reason For Exam: Pre op clearance DS: Diagnosis Discharge Diagnosis (1) Fx shaft fibula-closed: Status: Acute DS: Summary Hospital Course Hospital Course: The patient underwent a successful left tibia IM nail, was transferred to PACU and then to the floor to recover. During their stay, their vitals were stable, afebrile at 98.0 . Labs were unremarkable, H/H 10.8/32.1. POD 1 he was started on Lovenox for DVT ppx, they also received PT ervices daily Prior to discharge, their dressing was change, incision clean dry and intact, new xeroform and quaze dressing applied and the plan was to be discharged to [email or web address] OK to perform daily dry dressing changes prn, with xeroform and gauze. Ok to remove the boot when resting in bed. Time Spent with Patient Time attestation: Total time spent providing and/or coordinating discharge services: Discharge coordination time: Less than 30 minutes Quality: Safe Use of Opioids Does Pt have an Active Cancer Diagnosis on the Problem List?: No Quality: Stroke Does the patient have a stroke diagnosis?: No Physical Exam Vital Signs: Vital Signs: Last Vital Signs Temp 98.0 F 02/15/22 07:46 Pulse 77 02/15/22 07:46 Resp 18 02/15/22 07:46 BP 131/85 02/15/22 07:46 Pulse Ox 92 02/15/22 07:46 O2 Del Method 02/15/22 07:46 O2 Flow Rate 2 02/14/22 07:44 BMI result Body Mass Index 26.7 Const: General: cooperative, healthy appearing and no acute distress Resp: Effort & Inspection: normal respiratory effort and able to speak in complete sentences Cardio: Rate: regular rate Peripheral pulses: Peripheral pulses 2+ throughout GI: Palpation (GI): Soft to palpation Skin: General skin exam: no rashes or lesions noted Extrem: Other: Left knee ronald intact, no joint effusion, no drainage. He does have some swelling in the lower extremity with several fracture blisters. No erythema or drainage. NVI. Discharge Plan Discharge Patient Disposition: [facility] Discharge Diagnosis: s/p lt tibia imn Referrals: Akira Lobo MD [Primary Care Provider] - 1 Week Discharge Medications: New oxycodone [OxyContin] 10 mg Tablet,Oral Only,Ext.Rel.12 Hr 10 mg PO BID 7 Days Qty: 14 0RF Rx Instructions: Partial Fill upon patient request. oxycodone 10 mg tablet 10 mg PO Q4H PRN (Reason: Pain, Moderate (Pain Scale 4-6) 7 Days Qty: 42 0RF Rx Instructions: Partial Fill upon patient request. docusate sodium 100 mg Capsule 100 mg PO BID 30 Days Qty: 60 0RF diphenhydramine HCl [Allergy Relief(diphenhydramin)] 25 mg Tablet 25 mg PO Q6H PRN (Reason: Itching) Qty: 120 0RF enoxaparin 40 mg/0.4 mL Syringe 40 mg subcut Q24H 42 Days Qty: 16.8 0RF Continued gabapentin 600 mg tablet 1 tab PO TID clonazepam 1 mg tablet 1 tab PO BEDTIME tramadol 50 mg tablet 1 tab PO DAILY acetaminophen 500 mg tablet 1 tab PO BID PRN (Reason: Pain (Scale Score 1-3)) Biktarvy 50-200-25 mg tablet 1 tab PO DAILY amlodipine 5 mg tablet 1 tab PO DAILY propranolol 120 mg capsule,extended release 24 hr 1 cap PO DAILY diphenhydramine HCl [Banophen] 25 mg tablet 2 tab PO BEDTIME PRN (Reason: Insomnia) Flovent HFA 110 mcg/actuation HFA aerosol inhaler 1 puff inhalation BID albuterol sulfate 90 mcg/actuation HFA aerosol inhaler 2 puff PO Q4H PRN (Reason: Wheezing) lidocaine 4 % adhesive patch,medicated 1 patch topical DAILY PRN (Reason: chest wall pain) Qty: 10 0RF risperidone 2 mg tablet 1 tab PO BEDTIME pantoprazole 40 mg tablet,delayed release (DR/EC) 1 tab PO DAILY mirtazapine 45 mg tablet 1 tab PO BEDTIME albuterol sulfate 2.5 mg /3 mL (0.083 %) solution for nebulization 2.5 mg inhalation Q4H PRN (Reason: shortness of breath or wheezing) Ensure Liquid 1 ea PO TID Discharge Orders: Discharge Order (Routine); Ordered 02/15/22 Ordered By: Stefanie Linares Stand Alone Forms: Patient Portal Discharge page Care Plan Goals: Restore function of joint Health Concerns: none Plan of Treatment: Weight bearing as tolerated with boot on Gait training, Rom of the knee and ankle, isometric quad strengthening, ADLs Continue Lovenox for dvt ppx x6 weeks Keep dressing clean,dry and intact-no showering or tub baths Follow up with Orthopedics in 2 weeks Assessment: as above
[2022-02-15] MEDS: Propranolol HCL LA 60 MG CAP.SA.24H 120 MG PO (08:29)
[2022-02-15] MEDS: oxyCODONE HCl Immed Release 5 MG TABLET 10 MG PO ×2 (08:29→12:29)
[2022-02-15] MEDS: oxyCODONE HCl ER 10 MG TAB.ER.12H PO (08:29)
[2022-02-15] MEDS: Docusate Sodium 100 MG CAPSULE PO (08:29)
[2022-02-15] MEDS: diphenhydrAMINE HCL 25 MG TABLET PO (08:29)
[2022-02-15] MEDS: Enoxaparin Sodium 40 MG/0.4 ML SYRINGE SUBCUT (08:30)
[2022-02-15] MEDS: Bictegrav/Emtricit/Tenofov Ala TABLET 1 TAB PO (08:30)
[2022-02-15] MEDS: Gabapentin 600 MG TABLET PO (08:30)
[2022-02-15] MEDS: amLODIPine Besylate 5 MG TABLET PO (08:30)
[2022-02-15] MEDS: Fluticasone Propionate 100 MCG BLST.W.DEV 1 PUFF INHALE (09:04)
[2022-02-15 09:05] VITALS: PULSE 76; RESP 18; O2SAT 96
--- NOTE | 2022-02-15 09:05 | MHC.CM.PN ---
[facility] HAS A COVID + PATIENT IN THE ROOM THAT PATIENT WAS TO DC TO. THEY ARE OFFERING A BED AT [facility] PATIENT AWARE AND IN AGREEMENT
[2022-02-15 09:20] VITALS: PULSE 76
[2022-02-15 11:35] VITALS: BP 118/73; PULSE 75; RESP 18; TEMP 36.3; O2SAT 93
== END 2022-02-15 13:45 | disposition skilled nursing facility (03) | DRG 494 ==
LOC: HO.ED 02-12 02:36 → HO.EDOVER 02-12 02:44 → HO.S3 02-12 03:30
PROVIDERS: Hospitalist; Orthopaedic Surgery; Physician Assistant; Admitting Provider Physician Assistant; Emergency Provider Emergency Medicine Emergency Medical Services; PCP Internal Medicine; Visit Provider Physician Assistant
PROC: 0QSH04Z Reposition Left Tibia with Internal Fixation Device, Open Approach (ICD-10-PCS; principal; 2022-02-12 13:00)
DX: S82.252A Displaced comminuted fracture of shaft of left tibia, initial encounter for closed fracture (principal); S82.452A Displaced comminuted fracture of shaft of left fibula, initial encounter for closed fracture; Z21 Asymptomatic human immunodeficiency virus [HIV] infection status; V19.9XXA Pedal cyclist (driver) (passenger) injured in unspecified traffic accident, initial encounter; J45.909 Unspecified asthma, uncomplicated; G62.9 Polyneuropathy, unspecified; G43.909 Migraine, unspecified, not intractable, without status migrainosus; B19.20 Unspecified viral hepatitis C without hepatic coma; Z20.822 Contact with and (suspected) exposure to COVID-19; Z87.442 Personal history of urinary calculi; Z88.0 Allergy status to penicillin; Z88.5 Allergy status to narcotic agent; Z88.6 Allergy status to analgesic agent; Z79.51 Long term (current) use of inhaled steroids; Z79.899 Other long term (current) drug therapy
CPT/HCPCS: 36415; 73610; 73630; 80048; 80307; 85014; 85018; 85025; 85027; 86850; 86900; 86901; 87635; 94640; 94664; 97116; 97162; 97530; 99285; C1713; C1769; J0690; J1100; J1170; J1650; J2250; J2405; J3010; J3370; Q0163

== ENCOUNTER 2022-02-27 07:51 | Outpatient (REF) | payer OTHER, SELFPAY ==
--- NOTE | ~2022-02-27 | XR_ITS ---
EXAMINATION: XR TIBIA AND FIBULA, LEFT CLINICAL INFORMATION: Pain in left leg. COMPARISON: Left ankle 02/12/2022. TECHNIQUE: AP and lateral views of the left tibia and fibula were obtained. FINDINGS: There is a comminuted distal tibial fracture with an intramedullary femoral hesham and screws through the proximal and the distal segments. The fracture fragments are in alignment. Comminuted distal fibular fracture is unchanged. There are surgical ronald in the proximal and distal left lower leg. The ankle mortise and subtalar joints are normal. XR/XR tibia fibula LT 2V IMPRESSION: 1. Stabilized comminuted distal tibial fracture with intramedullary femoral hesham and 2 screws in the proximal and distal segments. 2. No change in the comminuted distal fibular fracture.
== END 2022-02-27 07:52 | disposition home or self-care (01) ==
LOC: HO.HOSX 07:51
PROVIDERS: Visit Provider Physician Assistant
DX: M79.605 Pain in left leg (principal)
CPT/HCPCS: 73590

== ENCOUNTER 2022-03-31 07:56 | Outpatient (REF) | payer OTHER, SELFPAY ==
--- NOTE | ~2022-03-31 | XR_ITS ---
EXAMINATION: XR TIBIA AND FIBULA, LEFT CLINICAL INFORMATION: Pain left leg COMPARISON: Left tibia and fibula 02/27/2022 TECHNIQUE: AP and lateral views of the left tibia and fibula were obtained. FINDINGS: There is intramedullary femoral ehsham and 260 screws in the proximal and distal segments stabilizing comminuted distal tibial fracture with callus formation. Comminuted fibular fracture is visualized with new callus formation. Minimal soft tissue swelling seen along the lateral malleolus. Postsurgical ronald seen along the proximal and distal tibia have been removed. XR/XR tibia fibula LT 2V IMPRESSION: Stabilized distal tibial-fibular fracture with intramedullary femoral hesham and screws. There is mild callus formation. Comminuted distal tibial fracture is unchanged with callus formation.
== END 2022-03-31 07:57 | disposition home or self-care (01) ==
LOC: HO.HOSX 07:56
PROVIDERS: Visit Provider Physician Assistant
DX: M79.605 Pain in left leg (principal)
CPT/HCPCS: 73590

== ENCOUNTER 2022-04-20 15:57 | Outpatient (REF) | payer OTHER, SELFPAY ==
--- NOTE | ~2022-04-20 | XR_ITS ---
EXAMINATION: XR TIBIA AND FIBULA, LEFT CLINICAL INFORMATION: Pain left leg. COMPARISON: Left tibia-fibula 03/31/2022 TECHNIQUE: AP and lateral views of the left tibia and fibula were obtained. FINDINGS: There is intramedullary tibial hesham with 2 nails in the proximal tibia and 2 nails in the distal tibia and a healing fracture in the mid to distal tibia. There is a slowly healing distal fibular fracture as well with callus formation. No new fractures seen. The ankle mortise and subtalar joints are normal. XR/XR tibia fibula LT 2V IMPRESSION: Stabilized distal tibial fracture with intramedullary tibial hesham and 2 screws above and below. Healing fibular fracture with callus formation.
== END 2022-04-20 15:58 | disposition home or self-care (01) ==
LOC: HO.HOSX 15:57
PROVIDERS: Visit Provider Physician Assistant
DX: M79.605 Pain in left leg (principal)
CPT/HCPCS: 73590

== ENCOUNTER 2022-05-12 07:19 | Outpatient (REF) | payer OTHER, SELFPAY ==
--- NOTE | ~2022-05-12 | XR_ITS ---
EXAMINATION: XR TIBIA AND FIBULA, LEFT CLINICAL INFORMATION: Pain. COMPARISON: Prior radiographs, most recently 04/20/2022. TECHNIQUE: AP and lateral views of the left tibia and fibula were obtained. FINDINGS: Bony alignment and mineralization are normal. There is an intact intramedullary hesham applied to the right tibial shaft, with intact fixator screws. There are healing distal tibial and fibular fractures, in stable alignment. Fracture lines are again noted. Again, there is mild callus formation, similar to prior. No dislocation is seen. The soft tissue planes are unremarkable, without gas or foreign body. XR/XR tibia fibula LT 2V IMPRESSION: There is a stable alignment of healing distal left tibial and fibular fracture status-post ORIF. No hardware failure or loosening is seen. There is mild callus formation again seen
== END 2022-05-12 07:20 | disposition home or self-care (01) ==
LOC: HO.HOSX 07:19
PROVIDERS: Visit Provider Physician Assistant
DX: M79.605 Pain in left leg (principal)
CPT/HCPCS: 73590

== ENCOUNTER 2022-06-15 | Outpatient (REF) | payer OTHER, SELFPAY | END 2022-06-15 00:01 | disposition home or self-care (01) | LOC: HO.HOSX | PROVIDERS: Visit Provider Orthopaedic Surgery | DX: Z13.89 Encounter for screening for other disorder (principal) ==

== ENCOUNTER 2022-07-13 | Outpatient (REF) | payer OTHER, SELFPAY | END 2022-07-13 00:01 | disposition home or self-care (01) | LOC: HO.HOSX | PROVIDERS: Visit Provider Physician Assistant | DX: Z13.89 Encounter for screening for other disorder (principal) ==

== ENCOUNTER 2022-08-14 07:46 | Outpatient (REF) | payer OTHER, SELFPAY | END 2022-08-14 07:47 | disposition home or self-care (01) | LOC: HO.HOSX 07:46 | PROVIDERS: Visit Provider Physician Assistant | DX: Z13.89 Encounter for screening for other disorder (principal) ==

== ENCOUNTER 2022-08-30 07:59 | Outpatient (REF) | payer OTHER, SELFPAY ==
--- NOTE | ~2022-08-30 | XR_ITS ---
EXAMINATION: XR TIBIA AND FIBULA, LEFT CLINICAL INFORMATION: Pain in left leg COMPARISON: 02/27/2022 and 05/12/2022 TECHNIQUE: AP and lateral views of the left tibia and fibula were obtained. FINDINGS: Bones have normal alignment at the knee and ankle. There has been progressive healing of the comminuted fracture of the distal tibial diaphysis, although there is some residual fracture lucency. Overall, there appears to be at least 75% osseous union at the fracture site. The antegrade tibial fixation nail and interlocking screws are well-positioned. No hardware loosening. There is approximately 10 degrees lateral angulation of the distal tibia as well as lateral angulation of the distal fibula There has been progressive healing of the comminuted fracture of the distal fibular diaphysis. The talar dome is well-positioned within the intact mortise. Ankle joint space is normal. XR/XR tibia fibula LT 2V IMPRESSION: * There is progressive healing of comminuted fractures of the distal tibia and fibula diaphysis. * There is posttraumatic valgus deformity of the distal tibia and fibula. * No loosening of tibial fixation hardware.
== END 2022-08-30 08:00 | disposition home or self-care (01) ==
LOC: HO.HOSX 07:59
PROVIDERS: Visit Provider Physician Assistant
DX: S82.402A Unspecified fracture of shaft of left fibula, initial encounter for closed fracture (principal); S82.202A Unspecified fracture of shaft of left tibia, initial encounter for closed fracture
CPT/HCPCS: 73590; 99212

== ENCOUNTER 2022-11-01 12:23 | Emergency (ER) | payer OTHER, SELFPAY ==
--- NOTE | ~2022-11-01 | XR_ITS ---
EXAMINATION: XR CHEST CLINICAL INFORMATION: Chest pain COMPARISON: Previous chest x-ray most recent February 2022 TECHNIQUE: 2 views of the chest were obtained. FINDINGS: The cardiac silhouette does not appear enlarged. There is question of prominent right paratracheal soft tissues. Hilar and mediastinal contours are otherwise unremarkable. The lungs are clear. No pleural effusion or pneumothorax. Mild midthoracic vertebral body compression fractures. XR/XR chest 2V IMPRESSION: Question prominent right paratracheal soft tissues.
[2022-11-01 12:33] VITALS: BP 120/80; BP 124/80; PULSE 84; PULSE 88; RESP 15; TEMP 36.7; O2SAT 97; O2SAT 98; BMI 22.2
[2022-11-01 12:53] LABS: MANUAL DIFF FLAG NO
[2022-11-01 12:58] LABS: Basophils Absolute Auto 0.1 X10*3/uL (0.0-0.2); Basophils Percent Auto 1.3 % (0-2); Eosinophils Absolute Auto 0.1 X10*3/uL (0.0-0.4); Hematocrit 41.3 % (42.0-52.0); Hemoglobin 13.3 g/dl (14.0-18.0); Imm Gran Abs Auto 0.01 X10*3/uL (0.00-0.03); Imm Gran Pct Auto 0.3 % (0.0-0.4); Lymphocytes Absolute Auto 1.1 X10*3/uL (1.2-4.9); Lymphocytes Percent Auto 27.2 % (20-40); Mean Corpuscular HGB Conc 32.2 g/dl (31.0-36.0); Mean Corpuscular Hemoglobin 29.2 pg (27.0-33.0); Mean Corpuscular Volume 90.8 fL (80.0-98.0); Mean Platelet Volume 10.7 fL (9.4-12.4); Monocytes Absolute Auto 0.4 X10*3/uL (0.1-1.2); Monocytes Percent Auto 9.6 % (2-11); Neutrophils Absolute Auto 2.4 x10*3/uL (2.0-8.3); Neutrophils Percent Auto 59.6 % (45-73); Platelet Count 235 X10*3/uL (160-400); Red Blood Count 4.55 X10*6/uL (4.60-5.80); Red Cell Distribution Width 15.3 % (11.0-16.0); White Blood Count 3.9 X10*3/uL (4.8-10.8)
--- OUTSIDE RECORDS SUMMARY | 2022-11-01 13:07 | XMS_ITS | Continuity of Care Document ---
:1965 Author Organization [facility] Address [address] [place] [id number]- Care Team Providers Name Role Phone Tatiana Garrido MD Primary Care Physician [id number] Date(s): 03/05/20 - 03/05/[address] [address] [facility] Encounter Diagnosis Nausea (Final) - 03/05/20 Diarrhea (Final) - 03/05/20 Discharge Disposition: A-D/C Home Attending Physician: Geoffrye Montez DO Admitting Physician: Geoffrey Montez DO Referring Physician: Not on Staff, Referring MD Allergies, Adverse Reactions, Alerts Substance Reaction Severity Status codeine1 Rash Active ibuprofen hives Active penicillins Active Tylox Rash Active Ultram stomach ache Active Bactrim Active Reglan Soft tissue swelling Active HYDROcodone Active PriLOSEC Resolved 1Patient tolerated morphine Medications Albuterol Inhalation, Every 4 hours, PRN Wheezing/Shortness of Breath, 0 Refills, Maintenance, Inhaler Start Date: 10/04/12 Status: OrderedAtripla oral tablet 1, tablet, By Mouth, Daily, 0, 0, 04/02/08 15:37:02, Print ROSARIO Number, [id number], Constant Indicator Start Date: 04/02/08 Status: Orderedemollients, topical emulsion See Instructions, topically to rash as needed, # 1 bottle, 0 Refills, Maintenance Start Date: 10/04/12 Status: Orderedlevetiracetam 500 mg oral tablet By Mouth, 2 times a day, 0 Refills, Maintenance, Tablet Start Date: 10/04/12 Status: Orderedlidocaine 5% topical film 1 patch, Topically, Daily, remove patches after 12 hours, # 30 patch, 0 Refills, Maintenance, 01/27/20 16:08:00 EDT, [id number], 1 patch Topically Daily,x30 days,Instr:remove patches after 12 hours Start Date: 01/27/20 Stop Date: 02/26/20 Status: Ordered coy vitamin coy vitamin, Refills 0, Maintenance, 11/19/12 10:37:26 Start Date: 11/19/12 Status: Orderedphenytoin 100 mg oral capsule, extended release 3 capsule = 300 mg, By Mouth, Daily at bedtime, # 270 capsule, 0 Refills, Maintenance, CR Capsule Start Date: 11/19/12 Status: Orderedtamsulosin 0.4 mg oral capsule 0.4 mg, 1, capsule, By Mouth, Daily, # 14 capsule, Refills 0, Tot. Refills 0, Maintenance, 02/06/17 10:30:23, Print Requisition Start Date: 02/06/17 Stop Date: 02/20/17 Status: Ordered Problem List Condition Effective Dates Status Health Status Informant Major depressive disorder, recurrent 10/04/12 Active episode, severe, without mention of psychotic behavior(Confirmed) Results Radiology Reports Exam Date Time Procedure Performing Provider Status 03/05/20 1:28 PM Chest Portable Moshe , Kate; Auth (Verified) Notes:(Chest Portable) Reason For Exam: Shortness of BreathRESULT: Chest Portable Chest Portable Refer to EMR; Reason: Shortness of Breath; Clinical Question(s): CHF COMPARISON: 01/27/2020 FINDINGS: LINES AND TUBES: None. LUNGS AND PLEURA: No acute cardiopulmonary process. Old left rib fractures. IMPRESSION: No acute abnormality. WSN: [id number] Ordering Physician: Yosi Keane Dictated By: Umer Yip MD Dictated Date/Time: 03/05/20 1:29 pm Reviewed By: Umer Yip MD Signed By: Umer Yip MD Signed Date/Time: 03/05/20 1:29 pm Transcribed By: FERNANDA Transcribed Date/Time: 03/05/20 1:29 pm Vital Signs Most recent to oldest 1 2 3 [Reference Range]: Oxygen Saturation [94-100 %] 98 % 97 % 98 % (03/05/20 7:38 PM) (03/05/20 5:41 PM) (03/05/20 2:4 9 PM) Pulse Rate [55-90 bpm] 74 bpm 80 bpm 78 bpm (03/05/20 7:38 PM) (03/05/20 5:41 PM) (03/05/20 2:4 9 PM) Blood Pressure [90-138/55-84 141/76 mm Hg 162/102 mm Hg 132 /85 mm Hg mm Hg] *H* *H* (03/05/20 2:49 PM ) (03/05/20 7:38 PM) (03/05/20 5:41 PM) Respiratory Rate [16-30 18 br/min 16 br/min 17 br/mi n br/min] (03/05/20 7:38 PM) (03/05/20 5:41 PM) (03/05/20 5:3 8 PM) Temperature [96.8-100.4 DegF] 98.7 DegF 98.9 DegF 98 .8 DegF (03/05/20 7:38 PM) (03/05/20 5:41 PM) (03/05/20 2:4 9 PM) Liters per Minute 0 L/min (03/05/20 11:02 AM) Mode of Delivery (Oxygen) Room air Room air Room a ir (03/05/20 5:41 PM) (03/05/20 2:49 PM) (03/05/20 11: 54 AM) Blood pressure sites Arm, left Arm, left Arm, right (03/05/20 5:41 PM) (03/05/20 2:49 PM) (03/05/20 11: 54 AM) Temperature Route Oral Oral Oral (03/05/20 7:38 PM) (03/05/20 5:41 PM) (03/05/20 2:4 9 PM) Social History Social History Type Response Sex Male
--- OUTSIDE RECORDS SUMMARY | 2022-11-01 13:07 | XMS_ITS | Continuity of Care Document ---
:1965 Author Organization [facility] Address [address] [place] [id number]- Care Team Providers Name Role Phone Tatiana Garrido MD Primary Care Physician [place] [facility] [place] 01/[place]/[address] [address]- [facility] Encounter Diagnosis Flank pain (Final) - 01/27/20 Discharge Disposition: A-D/C Home Attending Physician: Nacho Vasquez MD Admitting Physician: Nacho Vasquez MD Referring Physician: Not on Staff, Referring MD Allergies, Adverse Reactions, Alerts Substance Reaction Severity Status codeine1 Rash Active ibuprofen hives Active penicillins Active Tylox Rash Active Ultram stomach ache Active Bactrim Active Reglan Soft tissue swelling Active HYDROcodone Active PriLOSEC Resolved 1Patient tolerated morphine Medications acetaminophen 325 mg oral tablet 650 mg, 2, tablet, By Mouth, Every 4 hours, PRN, for 5 days, not to exceed 4000 mg/day, # 50 tablet,Refills 0, Tot. Refills 0, Acute 02/01/20 16:08:00 EDT, as needed for pain, 01/27/20 16:08:00 EDT, Route to Pharmacy Electronically, [facility]/pharmacy #[id number] Start Date: 01/27/20 Stop Date: 02/01/20 Status: OrderedAlbuterol Inhalation, Every 4 hours, PRN Wheezing/Shortness of Breath, 0 Refills, Maintenance, Inhaler Start Date: 10/04/12 Status: OrderedAtripla oral tablet 1, tablet, By Mouth, Daily, 0, 0, 04/02/08 15:37:02, Print ROSARIO Number, [id number], Constant Indicator Start Date: 04/02/08 Status: Orderedemollients, [...] patch, 0 Refills, Maintenance, 01/27/20 16:08:00 EDT, [facility]/pharmacy #[id number], 1 patch Topically Daily,x30 days,Instr:remove patches [...] Exam Date Time Procedure Performing Provider Status 01/27/20 11:24 AM Chest Portable Moshe , Kate; Auth (Verified) Notes:(Chest Portable) Reason For Exam: Shortness of BreathRESULT: Chest Portable Chest Portable AP upright Refer to EMR; Reason: Shortness of Breath; Clinical Question(s): Other:; Hx of Present Illness: Pt reports fever of 102 last night, pt c o left flank pain that started 2 days. Pt c o nusea. Pt also hashx of seizures.; Other Objective Findings: Pt is alert oriented x3 , 10 10 left flank pain, appears u ncomfortable, luns clear all bonilla, able to ambulate, grimacing in pain 3 , 10 10 left COMPARISON: 02/19/2019 and 02/23/2017. FINDINGS: LINES AND TUBES: None. LUNGS AND PLEURA: Clear lungs. Normal pulmonary vascularity. No pleural effusion. No pneumothorax. HEART, MEDIASTINUM AND MAXI: Heart is normal in size. Normal mediastinal and hilar contour. BONES AND SOFT TISSUES: No acute abnormality. IMPRESSION: No acute abnormality. WSN: [id number] Ordering Physician: Екатерина Barcenas Dictated By: Amanda Valentin MD Dictated Date/Time: 01/27/20 11:28 a Reviewed By: Amanda Valentin MD Signed By: Amanda Valentin MD Signed Date/Time: 01/27/20 11:28 am Transcribed By: FERNANDA Transcribed Date/Time: 01/27/20 11:26 am Vital Signs Most recent to oldest 1 2 3 [Reference Range]: Oxygen Saturation [94-100 %] 100 % 98 % 99 % (01/27/20 4:26 PM) (01/27/20 2:31 PM) (01/27/20 9:2 4 AM) Pulse Rate [55-90 bpm] 73 bpm 85 bpm 87 bpm (01/27/20 4:26 PM) (01/27/20 2:31 PM) (01/27/20 9:2 4 AM) Blood Pressure [90-138/55-84 140/89 mm Hg 142/93 mm Hg 138 /86 mm Hg mm Hg] *H* *H* (01/27/20 9:24 AM ) (01/27/20 4:26 PM) (01/27/20 2:31 PM) Respiratory Rate [16-30 20 br/min 18 br/min 18 br/mi n br/min] (01/27/20 4:26 PM) (01/27/20 2:31 PM) (01/27/20 11: 39 AM) Temperature [96.8-100.4 DegF] 97.8 DegF 97.5 DegF (01/27/20 2:31 PM) (01/27/20 9:24 AM) Mode of Delivery (Oxygen) Room air Room air Room a ir (01/27/20 4:26 PM) (01/27/20 2:31 PM) (01/27/20 9:2 4 AM) Blood pressure sites Arm, left Arm, right (01/27/20 4:26 PM) (01/27/20 9:24 AM) Temperature Route Oral Oral (01/27/20 2:31 PM) (01/27/20 9:24 AM)
[2022-11-01 13:10] LABS: Anion Gap 11 (12-20); Blood Urea Nitrogen 17 mg/dL (9-16); Calcium 9.1 mg/dL (8.4-10.2); Carbon Dioxide 29 mmol/L (22-29); Chloride 106 mmol/L (96-108); Creatinine Clr Calc Pharmacy 62.5; Estimated Glomerular Filt Rate > 60; Glucose Random 156 mg/dL (60-115); Potassium 3.9 mmol/L (3.3-5.1); Sodium 142 mmol/L (135-145)
--- NOTE | 2022-11-01 13:16 | ED_ITS ---
HPI - Chest Pain General Chief Complaint: Chest Pain Stated Complaint: Chest pain per EMS Time Seen by Provider: 11/01/22 13:15 Source: patient and EMS Mode of arrival: EMS Limitations: no limitations History of Present Illness HPI narrative: 57y/o male with PMHx of HIV presents with chest pain which began last night. Pt states the pain began last night after passing a kidney stone. Pt describes the pain as intermittent and sharp. Pt states the pain is located to the left of the sternum and worse with deep breath in. Pt denies fever, cough, congestion. Pt states he has taken aspirin without relief. Pt states he has had similar pain in the past for which he was hospitalized for 3 days, however he is unsure of what the diagnosis was at that time. Timing of current episode: episodic Prior episodes: Yes Severity: mild Pain scale (0-10): 3 Quality: sharp Exacerbating factors: nothing Treatment prior to arrival: none Related Data Home Medications Medication Instructions Recorded Confirmed clonazepam 1 mg tablet 1 tab PO BEDTIME 04/21/21 02/12/22 gabapentin 600 mg tablet 1 tab PO TID 04/21/21 02/12/22 tramadol 50 mg tablet 1 tab PO DAILY 04/21/21 02/12/22 acetaminophen 500 mg tablet 1 tab PO BID PRN Pain (Scale Score 06/06/21 02/12/22 1-3) bictegravir 50 mg-emtricitabine 1 tab PO DAILY 06/06/21 02/12/22 200 mg-tenofovir alafenam 25 mg tablet (Biktarvy) amlodipine 5 mg tablet 1 tab PO DAILY 06/19/21 02/12/22 propranolol 120 mg capsule,24 1 cap PO DAILY 06/19/21 02/12/22 hr,extended release albuterol sulfate 90 mcg/actuation 2 puff PO Q4H PRN Wheezing 01/17/22 02/12/22 aerosol inhaler diphenhydramine HCl 25 mg tablet 2 tab PO BEDTIME PRN Insomnia 01/17/22 02/12/22 (Banophen) fluticasone propionate 110 1 puff inhalation BID 01/17/22 02/12/22 mcg/actuation HFA aerosol inhaler (Flovent HFA) albuterol sulfate 2.5 mg/3 mL 2.5 mg inhalation Q4H PRN 02/12/22 02/12/22 (0.083 %) solution for nebulization shortness of breath or wheezing food supplemt, lactose-reduced 1 ea PO TID 02/12/22 02/12/22 (Ensure oral liquid) mirtazapine 45 mg tablet 1 tab PO BEDTIME 02/12/22 02/12/22 pantoprazole 40 mg tablet,delayed 1 tab PO DAILY 02/12/22 02/12/22 release risperidone 2 mg tablet 1 tab PO BEDTIME 02/12/22 02/12/22 diphenhydramine HCl 25 mg tablet 25 mg PO BEDTIME PRN 02/27/22 (Benadryl Allergy) Previous Rx's Medication Instructions Recorded lidocaine 4 % topical patch 1 patch topical DAILY PRN chest 01/19/22 wall pain #10 ea diphenhydramine HCl 25 mg tablet 25 mg PO Q6H PRN Itching #120 tabs 02/15/22 (Allergy Relief (diphenhydramine)) docusate sodium 100 mg capsule 100 mg PO BID 30 days #60 caps 02/15/22 enoxaparin 40 mg/0.4 mL 40 mg (0.4 mL) subcut Q24H 42 days 02/15/22 subcutaneous syringe #16.8 mL oxycodone 10 mg tablet,crush 10 mg PO BID 7 days #14 tabs 02/15/22 resistant,extended release 12 hr (OxyContin) oxycodone 5 mg tablet 5 mg PO Q6H PRN Pain, Moderate 04/06/22 (Pain Scale 4-6 7 days #28 tabs ibuprofen 800 mg tablet 800 mg PO Q8H PRN for pain #90 tabs 08/07/22 celecoxib 200 mg capsule (Celebrex) 200 mg PO BID 30 days #60 caps 08/30/22 Allergies Allergy/AdvReac Type Severity Reaction Status Date / Time Seasonal Allergies Allergy Intermediate Eye Verified 10/12/22 13:24 Drainage codeine Allergy Mild RASH Verified 08/30/22 11:27 [From Tylenol-Codeine #3] levofloxacin [From Levaquin] Allergy Mild Rash Verified 10/12/22 13:24 metoclopramide [From Reglan] Allergy Mild Rash Verified 10/12/22 13:24 acetaminophen Allergy Unknown Unknown Verified 08/30/22 11:27 [Tylenol-Codeine #3] ibuprofen [From Motrin] Allergy Unknown Reflux Verified 10/12/22 13:24 Penicillins [PENICILLINS] Allergy Unknown Rash Verified 10/12/22 13:24 tramadol [From Ultram] AdvReac Mild Nausea and Verified 10/12/22 13:24 Vomiting Review of Systems Constitutional: Constitutional: Reports no additional constitutional complaints, Denies chills, Denies fever(s) and Denies night sweats Eyes: Eyes: Reports no additional eye complaints, Denies blurry vision, Denies change in vision, Denies diplopia, Denies eye discharge, Denies loss of vision and Denies eye pain ENT: Denies dizziness Cardiovascular: Cardiovascular: Reports no additional cardiovascular complaints, Reports chest pain, Denies lightheadedness, Denies Loss of Consciousness and Denies dyspnea Respiratory: Respiratory: Reports no additional respiratory complaints and Denies dyspnea Gastrointestinal: Gastrointestinal: Reports no additional gastrointestinal complaints, Denies abdominal pain, Denies melena, Denies hematochezia, Denies change in bowel habits and Denies change in stool character Genitourinary: Genitourinary: Reports no additional male genitourinary complaints, Denies hematuria, Denies oliguria, Denies difficulty urinating, Denies dysuria, Denies urinary frequency, Denies urinary hesitancy, Denies urinary incontinence and Denies urinary urgency Musculoskeletal: Musculoskeletal: Reports no additional musculoskeletal complaints, Denies numbness and Denies tingling Neurologic: Denies dizziness, Denies loss of vision, Denies numbness and Denies tingling Psychiatric: Psychiatric: Reports no additional psychiatric complaints Endocrine: Endocrine: Reports no additional endocrine complaints Hematologic/Lymphatic: Hematologic/Lymphatic: Reports no additional hematologic/lymphatic complaints Allergic/Immunologic: Allergic/Immunologic: Reports no additional allergic /immunologic complaints [facility] Past Medical History Attestation statement: The following information was validated with the patient. Source: old records reviewed and nursing notes reviewed Medical History Asthma Closed fracture of leg Depression Hemorrhoids Hepatitis C HIV (human immunodeficiency virus infection) Hypertension Kidney stones Pleuritic chest pain Pneumonia Substance abuse Surgical History H/O hemorrhoidectomy Social History Social History Household Members: Family Housing: Apartment Do you presently have visiting nurse or other home services: Yes ([employer]) Alcohol intake: never Patient Tobacco Use Status: Never used Tobacco Second Hand Smoke Exposure: No Advance Directives: Yes Advance Directives on File: Yes Advance Directives Date on File: 04/25/21 service: No Current occupational status: disabled Physical Exam Vital Signs: Vital Signs: Last Vital Signs Temp 98.1 F 11/01/22 12:33 Pulse 84 11/01/22 12:33 Resp 15 11/01/22 12:33 BP 124/80 11/01/22 12:33 Pulse Ox 98 11/01/22 12:33 O2 Del Method 11/01/22 12:33 BMI result Body Mass Index 22.2 Const: General: cooperative, no acute distress, alert and awake Nutritional Appearance: well nourished Orientation/consciousness: patient oriented x3 Limitations: no limitations HEENT: Head: Yes normal to inspection and Yes atraumatic Ears: hearing grossly normal bilaterally and external ears normal General nose exam: Normal external nose present, no nasal discharge noted and no epistaxis Face and sinus: Yes normal facial exam, No abrasion and No laceration Mouth: Normal oral and palatal mucosa present, no drooling and no muffled voice Eyes: General: appearance normal, both eyes and all related structures Periorbital: periorbital findings normal Eyelids: Yes eyelids normal Conjunctivae: conjunctivae normal Pupils: Equal, round and reactive pupils present EOM: EOMs intact bilaterally Neck: Neck: Yes normal visual inspection, Yes full ROM and Yes no lymphadenopathy Chest: Chest palpation & inspection: normal inspection of the chest Resp: Effort & Inspection: normal respiratory effort and able to speak in complete sentences Auscultation: clear to auscultation bilaterally Cardio: Rate: regular rate Rhythm: regular rhythm GI: Inspection: Yes normal to inspection Palpation (GI): Soft to palpation, not firm, nontender, no guarding and not rigid Neuro: General: patient oriented x3 and moves all extremities Cranial nerves: Yes Equal, round and reactive pupils present Cognition (Neuro): normal cognition Motor exam (neuro): 5/5 motor strength present throughout Sensory Exam: Normal double simultaneous stimulation for sensation Coordination: [id number] test normal Extrem: General: Yes normal to inspection, Yes full ROM and Yes capillary refill normal Psych: Appearance: grossly normal Mental Status: mental status grossly normal Affect: normal affect Attitude: cooperative Thought process: Normal thought process present Thought content: Normal thought content present Insight: Good insight present (Psych) Medications Administered Discontinued Medications Generic Name Dose Route Start Last Admin Trade Name Akira PRN Reason Stop Dose Admin Ketorolac Tromethamine 15 mg 11/01/22 14:49 11/01/22 15:20 Ketorolac Tromethamine 15 Mg/Ml Vial IVPUSH 11/01/22 14:50 15 mg ONCE ONE Administration Medical Decision Making Medical Decision Making [facility] Narrative: Patient is a 57 year old assigned male at with a history of HIV presenting to the emergency department today with intermittent left sided chest pain. Patient's physical exam was unremarkable. Patient's blood work was unremarkable. Patient's EKG was unremarkable. Patient's chest x-ray showed no acute process. I explained my physical exam findings as well as all test results to the patient. I answered all questions asked by the patient. Patient received IV toradol which he stated helped his symptoms significantly. I stressed the importance of the patient taking his medication as prescribed. I stressed the importance of the patient following up with his primary care provider. I stressed the importance of the patient returning to the emergency department immediately if his symptoms were to worsen or if he were to develop any dizziness, shortness of breath, difficulty breathing, chest pain, blurry vision, loss of vision, nausea, vomiting, abdominal pain, fever, chills, back pain, or any other complaints. Patient verbalized agreement and understanding with this treatment plan and discharge. Differential Diagnosis Differential Diagnoses: The differential diagnosis associated with the presentation includes chest wall pain, chest pain Lab Data [facility] Lab Attestation statement: I reviewed the patient's lab results. 11/01/22 12:48 11/01/22 12:48 Labs: Lab Results 11/01/22 11/01/22 11/01/22 Range/Units 12:48 12:48 12:48 WBC 3.9 L (4.8-10.8) X10*3/uL RBC 4.55 L D (4.60-5.80) X10*6/uL Hgb 13.3 L D (14.0-18.0) g/dl Hct 41.3 L D (42.0-52.0) % MCV 90.8 (80.0-98.0) fL MCH 29.2 (27.0-33.0) pg MCHC 32.2 (31.0-36.0) g/dl RDW 15.3 (11.0-16.0) % Plt Count 235 (160-400) X10*3/uL MPV 10.7 (9.4-12.4) fL Immature Gran % (Auto) 0.3 (0.0-0.4) % Neut % (Auto) 59.6 (45-73) % Lymph % (Auto) 27.2 (20-40) % [place] % (Auto) 9.6 (2-11) % Eos % (Auto) 2.0 (0-4) % Baso % (Auto) 1.3 (0-2) % Lymph # (Auto) 1.1 L (1.2-4.9) X10*3/uL [place] # (Auto) 0.4 (0.1-1.2) X10*3/uL Eos # (Auto) 0.1 (0.0-0.4) X10*3/uL Baso # (Auto) 0.1 (0.0-0.2) X10*3/uL Abs Immat Gran (auto) 0.01 (0.00-0.03) X10*3/uL Absolute Neuts (auto) 2.4 (2.0-8.3) x10*3/uL Absolute Nucleated RBC 0.000 (0.0-0.012) X10*3/uL Nucleated RBC % (auto) 0.0 (0.0-0.2) /100WBC ESR (0-15) MM/HR Sodium 142 (135-145) mmol/L Potassium 3.9 (3.3-5.1) mmol/L Chloride 106 (96-108) mmol/L Carbon Dioxide 29 (22-29) mmol/L Anion Gap 11 L (12-20) BUN 17 H (9-16) mg/dL Creatinine 1.14 (0.5-1.4) mg/dL Estim Creat Clear Calc 62.5 Estimated GFR > 60 Random Glucose 156 H (60-115) mg/dL Calcium 9.1 (8.4-10.2) mg/dL Troponin I High Sens < 3.5 (<3.5-35.0) ng/L C-Reactive Protein 0.11 (< or = 0.50) mg/dL B-Natriuretic Peptide (<100) pg/mL Influenza Type A (PCR) (Negative) Influenza Type B (PCR) (Negative) RSV RNA Qual (PCR) (Negative) SARS-CoV-2 RNA (RT-PCR) (Negative) 11/01/22 11/01/22 11/01/22 Range/Units 12:48 12:48 14:02 WBC (4.8-10.8) X10*3/uL RBC (4.60-5.80) X10*6/uL Hgb (14.0-18.0) g/dl Hct (42.0-52.0) % MCV (80.0-98.0) fL MCH (27.0-33.0) pg MCHC (31.0-36.0) g/dl RDW (11.0-16.0) % Plt Count (160-400) X10*3/uL MPV (9.4-12.4) fL Immature Gran % (Auto) (0.0-0.4) % Neut % (Auto) (45-73) % Lymph % (Auto) (20-40) % [place] % (Auto) (2-11) % Eos % (Auto) (0-4) % Baso % (Auto) (0-2) % Lymph # (Auto) (1.2-4.9) X10*3/uL [place] # (Auto) (0.1-1.2) X10*3/uL Eos # (Auto) (0.0-0.4) X10*3/uL Baso # (Auto) (0.0-0.2) X10*3/uL Abs Immat Gran (auto) (0.00-0.03) X10*3/uL Absolute Neuts (auto) (2.0-8.3) x10*3/uL Absolute Nucleated RBC (0.0-0.012) X10*3/uL Nucleated RBC % (auto) (0.0-0.2) /100WBC ESR 2 (0-15) MM/HR Sodium (135-145) mmol/L Potassium (3.3-5.1) mmol/L Chloride (96-108) mmol/L Carbon Dioxide (22-29) mmol/L Anion Gap (12-20) BUN (9-16) mg/dL Creatinine (0.5-1.4) mg/dL Estim Creat Clear Calc Estimated GFR Random Glucose (60-115) mg/dL Calcium (8.4-10.2) mg/dL Troponin I High Sens (<3.5-35.0) ng/L C-Reactive Protein (< or = 0.50) mg/dL B-Natriuretic Peptide < 10 (<100) pg/mL Influenza Type A (PCR) NEGATIVE (Negative) Influenza Type B (PCR) NEGATIVE (Negative) RSV RNA Qual (PCR) NEGATIVE (Negative) SARS-CoV-2 RNA (RT-PCR) NEGATIVE (Negative) Independent Interpretation I performed an independent interpretation of an: EKG Interpretation: Vent. Rate: 079 BPM ? ? Atrial Rate: 079 BPM P-R Int: 160 ms? QRS Dur: 100 ms QT Int: 380 ms ? ? ? P-R-T Axes: 065 067 041 degrees QTc Int: 435 ms ? Normal sinus rhythm Incomplete right bundle branch block Borderline ECG DD/ 1258 Radiology Impression Radiologist Impression: My interpretation is in agreement with the radiologist's impression of this imaging study. EXAMINATION: XR CHEST CLINICAL INFORMATION: Chest pain COMPARISON: Previous chest x-ray most recent February 2022 TECHNIQUE: 2 views of the chest were obtained. FINDINGS: The cardiac silhouette does not appear enlarged. There is question of prominent right paratracheal soft tissues. Hilar and mediastinal contours are otherwise unremarkable. The lungs are clear. No pleural effusion or pneumothorax. Mild midthoracic vertebral body compression fractures. XR/XR chest 2V IMPRESSION: Question prominent right paratracheal soft tissues. Dictated By: Karuna Garza MD Signed By: Electronically signed by Karuna Garza MD 11/01/22 0273 Discharge Plan Discharge Clinical Impression: Atypical chest pain Patient Disposition: Home, Self-Care Instructions: Chest Pain (DC) Additional Instructions: Follow up with your primary care provider. Return to the emergency department immediately if your symptoms worsen or if you develop any dizziness, shortness of breath, difficulty breathing, chest pain, blurry vision, loss of vision, nausea, vomiting, abdominal pain, fever, chills, back pain, or any other complaints. Prescriptions: No Action oxycodone 5 mg tablet 5 mg PO Q6H PRN (Reason: Pain, Moderate (Pain Scale 4-6) 7 Days Qty: 28 0RF Rx Instructions: Partial Fill upon patient request. ibuprofen 800 mg tablet 800 mg PO Q8H PRN (Reason: for pain) Qty: 90 3RF gabapentin 600 mg tablet 1 tab PO TID clonazepam 1 mg tablet 1 tab PO BEDTIME tramadol 50 mg tablet 1 tab PO DAILY acetaminophen 500 mg tablet 1 tab PO BID PRN (Reason: Pain (Scale Score 1-3)) Biktarvy 50-200-25 mg tablet 1 tab PO DAILY amlodipine 5 mg tablet 1 tab PO DAILY propranolol 120 mg capsule,extended release 24 hr 1 cap PO DAILY diphenhydramine HCl [Banophen] 25 mg tablet 2 tab PO BEDTIME PRN (Reason: Insomnia) fluticasone propionate [Flovent HFA] 110 mcg/actuation HFA aerosol inhaler 1 puff inhalation BID albuterol sulfate 90 mcg/actuation HFA aerosol inhaler 2 puff PO Q4H PRN (Reason: Wheezing) lidocaine 4 % adhesive patch,medicated 1 patch topical DAILY PRN (Reason: chest wall pain) Qty: 10 0RF risperidone 2 mg tablet 1 tab PO BEDTIME pantoprazole 40 mg tablet,delayed release (DR/EC) 1 tab PO DAILY mirtazapine 45 mg tablet 1 tab PO BEDTIME albuterol sulfate 2.5 mg /3 mL (0.083 %) solution for nebulization 2.5 mg inhalation Q4H PRN (Reason: shortness of breath or wheezing) Ensure Liquid 1 ea PO TID diphenhydramine HCl [Allergy Relief(diphenhydramin)] 25 mg Tablet 25 mg PO Q6H PRN (Reason: Itching) Qty: 120 0RF enoxaparin 40 mg/0.4 mL Syringe 40 mg subcut Q24H 42 Days Qty: 16.8 0RF oxycodone [OxyContin] 10 mg Tablet,Oral Only,Ext.Rel.12 Hr 10 mg PO BID 7 Days Qty: 14 0RF Rx Instructions: Partial Fill upon patient request. docusate sodium 100 mg Capsule 100 mg PO BID 30 Days Qty: 60 0RF diphenhydramine HCl [Benadryl Allergy] 25 mg tablet 25 mg PO BEDTIME PRN celecoxib [Celebrex] 200 mg capsule 200 mg PO BID 30 Days Qty: 60 3RF Referrals: Akira Lobo MD [Primary Care Provider] - Interventions: ED Discharge Assessment Last Done: 11/01/22 15:35 Discharge Date/Time: 11/01/22 15:36 Print Language: [place]ian
[2022-11-01 13:20] LABS: Troponin-I High Sensitivity < 3.5 ng/L (<3.5-35.0)
[2022-11-01 14:11] LABS: C Reactive Protein 0.11 mg/dL (< or = 0.50)
[2022-11-01 14:28] LABS: B Type Natriuretic Peptide < 10 pg/mL (<100)
[2022-11-01 14:39] LABS: Erythrocyte Sedimentation Rate 2 MM/HR (0-15)
[2022-11-01 15:04] LABS: Influenza A PCR NEGATIVE (Negative); Influenza B PCR NEGATIVE (Negative); Resp Syncy Virus RNA Qual PCR NEGATIVE (Negative); SARS COV2 PCR INHOUSE NEGATIVE (Negative)
[2022-11-01] MEDS: Ketorolac Tromethamine 15 MG/ML VIAL IVPUSH (15:20)
== END 2022-11-01 15:36 | disposition home or self-care (01) ==
PROVIDERS: Physician Assistant Medical; Emergency Provider Emergency Medicine; PCP Internal Medicine
DX: R07.89 Other chest pain (principal); R06.02 Shortness of breath; Z20.822 Contact with and (suspected) exposure to COVID-19; Z20.828 Contact with and (suspected) exposure to other viral communicable diseases; Z79.899 Other long term (current) drug therapy
CPT/HCPCS: 0241U; 36415; 71046; 80048; 83880; 84484; 85025; 85652; 86140; 96374; 99283; 99284; J1885

== ENCOUNTER 2022-11-29 09:31 | Outpatient (REF) | payer OTHER, SELFPAY ==
[2022-11-29 09:45] LABS: MANUAL DIFF FLAG NO
[2022-11-29 10:59] LABS: Basophils Absolute Auto 0.1 X10*3/uL (0.0-0.2); Basophils Percent Auto 1.4 % (0-2); Eosinophils Absolute Auto 0.2 X10*3/uL (0.0-0.4); Eosinophils Percent Auto 4.3 % (0-4); Hematocrit 41.9 % (42.0-52.0); Hemoglobin 13.6 g/dl (14.0-18.0); Imm Gran Abs Auto 0.01 X10*3/uL (0.00-0.03); Imm Gran Pct Auto 0.2 % (0.0-0.4); Lymphocytes Percent Auto 23.3 % (20-40); Mean Corpuscular HGB Conc 32.5 g/dl (31.0-36.0); Mean Corpuscular Hemoglobin 29.4 pg (27.0-33.0); Mean Corpuscular Volume 90.7 fL (80.0-98.0); Mean Platelet Volume 11.5 fL (9.4-12.4); Monocytes Absolute Auto 0.6 X10*3/uL (0.1-1.2); Monocytes Percent Auto 13.3 % (2-11); Neutrophils Absolute Auto 2.4 x10*3/uL (2.0-8.3); Neutrophils Percent Auto 57.5 % (45-73); Platelet Count 246 X10*3/uL (160-400); Red Blood Count 4.62 X10*6/uL (4.60-5.80); Red Cell Distribution Width 15.1 % (11.0-16.0); White Blood Count 4.2 X10*3/uL (4.8-10.8)
[2022-11-29 12:05] LABS: Alanine Aminotransferase 13 U/L (0-40); Aspartate Amino Transferase 15 U/L (5-37); Estimated Glomerular Filt Rate > 60
[2022-11-29 12:39] LABS: HBsAGNum1 0.34 S/CO (0.00-0.99); Hepatitis B Surface Antigen Negative (Negative)
[2022-11-29 12:40] LABS: Syphilis Screen Nonreactive (Nonreactive)
[2022-11-29 13:19] LABS: CT PCR NOT DETECTED (Not Detect.); NG PCR NOT DETECTED (Not Detect.)
[2022-12-01 15:29] LABS: HIV RNA PCR Qn Copies NOT DETECTED copies/mL (NOT DETECTED); HIV RNA PCR Qn Log Copies NOT DETECTED (NOT DETECTED)
[2022-12-01 15:33] LABS: Absolute CD3 Count 751 cells/uL (840-3060); Absolute CD4 Count 377 cells/uL (490-1740); Absolute CD8 Count 412 cells/uL (180-1170); Absolute Lymphocytes 978 cells/uL (850-3900); CD4 CD8 Ratio 0.91 (0.86-5.00); Percent CD3 Cells 77 % (57-85); Percent CD4 Cells 39 % (30-61); Percent CD8 Cells 42 % (12-42)
[2022-12-02 21:43] LABS: HCV Log PCR <1.18 NOT DETECTED Log IU/mL (NOT DETECTED); HepC Viral Load <15 NOT DETECTED IU/mL (NOT DETECTED)
== END 2022-11-29 09:32 | disposition home or self-care (01) ==
LOC: HO.LAB 09:31
PROVIDERS: Visit Provider Internal Medicine Infectious Disease
DX: B20 Human immunodeficiency virus [HIV] disease (principal)
CPT/HCPCS: 0353U; 82565; 84450; 84460; 85025; 86359; 86360; 86780; 87340; 87522; 87536

== ENCOUNTER 2022-12-20 07:11 | Emergency (ER) | payer OTHER, SELFPAY ==
[2022-12-20] VITALS (9 sets, daily range): BP systolic 98–118; BP diastolic 61–76; PULSE 75–106; RESP 14–21; TEMP 36.3–36.6; O2SAT 93–95
--- NOTE | ~2022-12-20 | CT_ITS ---
EXAMINATION: CT ANGIOGRAM OF THE CHEST WITH AND WITHOUT CONTRAST (CT PULMONARY ANGIOGRAM FOR PE) CLINICAL INFORMATION: Reason for Exam chest pain COMPARISON: Chest x-ray from earlier the same day and chest CT January 2022 TECHNIQUE: Prior to contrast administration, noncontrast localization images were obtained. Subsequently, multidetector volumetric imaging was performed from the thoracic inlet to below the diaphragms following the administration of 65 mL Omnipaque 350 intravenous contrast. No contrast reaction reported Sagittal, coronal, and MIP oblique sagittal reformatted images were obtained on the CT workstation, uploaded to PACS, and reviewed. This CT examination was performed using dose optimization techniques as appropriate, variously including the following: *Automated exposure control *Adjustment of mA and/or kV according to patient size (this includes techniques or standardized protocols for targeted exams where dose is matched to indication/reason for exam; i.e. extremities or head) *Use of iterative reconstruction technique Total exam dose-length product 197 mGy-cm FINDINGS: QUALITY OF STUDY/CONTRAST BOLUS: Satisfactory. PULMONARY ARTERIES: No pulmonary emboli. THORACIC AORTA: No aneurysm. LUNG: There is a new bilobed lesion in the inferior segment of the lingula. This has central low attenuation cystic change or cavity formation. Each bilobed component measures approximately 3 cm. Together this measures approximately 7.8 x 3.3 x 2 cm in sagittal AP and transverse dimension. There is some surrounding consolidation/airspace disease. There is question of a a second new pulmonary nodule versus atelectasis in the posterior costophrenic sulcus of the right lower lobe. This measures 1 x 1.6 cm axial image 383 series 7. PLEURA: Trace left pleural effusion. No right pleural effusion. No pneumothorax. MEDIASTINUM: Normal heart size. No pericardial effusion. No hilar or mediastinal lymphadenopathy. No evidence of septal bowing or right heart strain. CORONARY ARTERY CALCIFICATION: None visualized on this study. CHEST WALL/AXILLA: No axillary or internal mammary lymphadenopathy. OSSEOUS STRUCTURES: Mild midthoracic vertebral body compression fractures and volar to 2021 exam. UPPER ABDOMEN: Liver not completely visualized but may be enlarged.. No reflux of contrast into the hepatic veins to suggest elevated right heart pressures. CT/CT angio chest PE protocol IMPRESSION: No evidence of pulmonary embolism. New bilobed lesion in the peripheral inferior segment of the lingula with central low-attenuation suggestive of necrosis or cavity formation. Infectious or inflammatory process is favored. Neoplastic process cannot be excluded. Question new right lower lobe nodule versus atelectasis. Continued chest CT follow-up following treatment recommended. VTE: negative
--- NOTE | ~2022-12-20 | XR_ITS ---
EXAMINATION: XR CHEST CLINICAL INFORMATION: Chest pain and cough COMPARISON: Previous chest CT January 2022 and chest x-ray most recent October 2022 TECHNIQUE: 2 views of the chest were obtained. FINDINGS: The cardiac and mediastinal contours are stable. There is new peripheral airspace disease seen at the left lung base. There may be a small pleural effusion or adjacent pleural thickening. Right lung is clear. No right pleural effusion. No pneumothorax. Multiple old mid thoracic vertebral body compression fractures similar to previous exams. XR/XR chest 2V IMPRESSION: New peripheral airspace disease at the left lung base and probable mild adjacent pleural effusion or pleural thickening. This probably represents pneumonia. Pulmonary infarct cannot be excluded and clinical correlation recommended.
--- NOTE | 2022-12-20 07:16 | ECG_ITS ---
Test Reason : CHEST PAIN Blood Pressure : / mmHG Vent. Rate : 101 BPM Atrial Rate : 101 BPM P-R Int : 134 ms QRS Dur : 106 ms QT Int : 346 ms P-R-T Axes : 082 066 052 degrees QTc Int : 448 ms Sinus tachycardia Incomplete right bundle branch block Borderline ECG When compared with ECG of 10-FEB-2022 02:24, Nonspecific T wave abnormality has replaced inverted T waves in Anterior leads Referred By: Generic ED Physician Electronically Signed By:ZHANG OCHOA MD
--- NOTE | 2022-12-20 08:04 | ED.CHESTPAIN ---
HPI - Chest Pain General Chief Complaint: Chest Pain Stated Complaint: Chest pain x 4 days per EMS Time Seen by Provider: 12/20/22 07:51 Source: patient Mode of arrival: EMS Limitations: no limitations History of Present Illness HPI narrative: This is a 57-year-old male with a past medical history HIV emergency department with a complaints of chest pain x 4 days. Patient reports that he woke up 4 days ago and had left-sided chest pain. He describes his chest pain as a pinching sensation which starts in the left side of his chest and radiates to the right side of his chest. He reports that the chest pain is constant, denies chest pain worsening with positional changes or after eating. Denies chest pain worsening after ambulation. He reports that he also does feeling short of breath. He reports that he also has had a productive cough with brown colored sputum. He denies any fevers or chills. Denies any ear pain, sore throat, nasal congestion, rhinorrhea, nausea, vomiting, diarrhea, or abdominal pain. Patient denies any recent travel, cancer history, recent surgeries, Patient has a history of similar pain. No other complaints or concerns at this time. MD complaint: chest pain Onset (ago): day(s) Timing of current episode: constant Prior episodes: Yes Pain location: left chest and right chest Pain radiation: none Severity: similar to previous episodes Quality: tightness Relieving factors: nothing Exacerbating factors: nothing Treatment prior to arrival: none Risk Factors Coronary artery disease risk factors: none Thoracic aortic dissection risk factors: none Related Data Home Medications Medication Instructions Recorded Confirmed clonazepam 1 mg tablet 1 tab PO BEDTIME 04/21/21 02/12/22 gabapentin 600 mg tablet 1 tab PO TID 04/21/21 02/12/22 tramadol 50 mg tablet 1 tab PO DAILY 04/21/21 02/12/22 acetaminophen 500 mg tablet 1 tab PO BID PRN Pain (Scale Score 06/06/21 02/12/22 1-3) bictegravir 50 mg-emtricitabine 1 tab PO DAILY 06/06/21 02/12/22 200 mg-tenofovir alafenam 25 mg tablet (Biktarvy) amlodipine 5 mg tablet 1 tab PO DAILY 06/19/21 02/12/22 propranolol 120 mg capsule,24 1 cap PO DAILY 10/10/21 06/05/22 hr,extended release albuterol sulfate 90 mcg/actuation 2 puff PO Q4H PRN Wheezing 01/17/22 02/12/22 aerosol inhaler diphenhydramine HCl 25 mg tablet 2 tab PO BEDTIME PRN Insomnia 01/17/22 02/12/22 (Banophen) fluticasone propionate 110 1 puff inhalation BID 01/17/22 02/12/22 mcg/actuation HFA aerosol inhaler (Flovent HFA) albuterol sulfate 2.5 mg/3 mL 2.5 mg inhalation Q4H PRN 02/12/22 02/12/22 (0.083 %) solution for nebulization shortness of breath or wheezing food supplemt, lactose-reduced 1 ea PO TID 02/12/22 02/12/22 (Ensure oral liquid) mirtazapine 45 mg tablet 1 tab PO BEDTIME 02/12/22 02/12/22 pantoprazole 40 mg tablet,delayed 1 tab PO DAILY 02/12/22 02/12/22 release risperidone 2 mg tablet 1 tab PO BEDTIME 02/12/22 02/12/22 diphenhydramine HCl 25 mg tablet 25 mg PO BEDTIME PRN 02/27/22 (Benadryl Allergy) Previous Rx's Medication Instructions Recorded lidocaine 4 % topical patch 1 patch topical DAILY PRN chest 01/19/22 wall pain #10 ea diphenhydramine HCl 25 mg tablet 25 mg PO Q6H PRN Itching #120 tabs 02/15/22 (Allergy Relief (diphenhydramine)) docusate sodium 100 mg capsule 100 mg PO BID 30 days #60 caps 02/15/22 enoxaparin 40 mg/0.4 mL 40 mg (0.4 mL) subcut Q24H 42 days 02/15/22 subcutaneous syringe #16.8 mL oxycodone 10 mg tablet,crush 10 mg PO BID 7 days #14 tabs 02/15/22 resistant,extended release 12 hr (OxyContin) oxycodone 5 mg tablet 5 mg PO Q6H PRN Pain, Moderate 04/06/22 (Pain Scale 4-6 7 days #28 tabs celecoxib 200 mg capsule (Celebrex) 200 mg PO BID 30 days #60 caps 08/30/22 ibuprofen 800 mg tablet 800 mg PO Q8H PRN for pain #90 tabs 11/25/22 cefuroxime axetil 500 mg tablet 500 mg PO BID #9 tabs 12/20/22 doxycycline hyclate 100 mg tablet 100 mg PO BID 5 days #10 tabs 12/20/22 Allergies Allergy/AdvReac Type Severity Reaction Status Date / Time Seasonal Allergies Allergy Intermediate Eye Verified 12/20/22 07:44 Drainage codeine Allergy Mild RASH Verified 12/20/22 07:44 [From Tylenol-Codeine #3] levofloxacin [From Levaquin] Allergy Mild Rash Verified 12/20/22 07:44 metoclopramide [From Reglan] Allergy Mild Rash Verified 12/20/22 07:44 acetaminophen Allergy Unknown Unknown Verified 12/20/22 07:44 [Tylenol-Codeine #3] ibuprofen [From Motrin] Allergy Unknown Reflux Verified 12/20/22 07:44 Penicillins [PENICILLINS] Allergy Unknown Rash Verified 12/20/22 07:44 tramadol [From Ultram] AdvReac Mild Nausea and Verified 12/20/22 07:44 Vomiting Review of Systems Review of Systems: Yes all other systems are reviewed and are negative FORMERLY [facility], [facility] Past Medical History Medical History Asthma Closed fracture of leg Depression Hemorrhoids Hepatitis C HIV (human immunodeficiency virus infection) Hypertension Kidney stones Pleuritic chest pain Pneumonia Substance abuse Surgical History H/O hemorrhoidectomy Social History Social History Household Members: Family Housing: Apartment Do you presently have visiting 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 or 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) Alcohol intake: never Patient Tobacco Use Status: Never used Tobacco Smoked in Last 30 Days: No Second Hand Smoke Exposure: No Use of substances other than those prescribed or required for medical reasons: No Advance Directives: Yes Advance Directives on File: Yes Advance Directives Date on File: 04/25/21 service: No Current occupational status: disabled Physical Exam Vital Signs: Vital Signs: Last Vital Signs Temp 97.8 F 12/20/22 11:40 Pulse 79 12/20/22 12:54 Resp 17 12/20/22 12:54 BP 112/74 12/20/22 12:54 Pulse Ox 95 12/20/22 12:54 O2 Del Method Room Air 12/20/22 12:54 BMI result Body Mass Index 20.0 Appearance: Alert. Oriented X3. No acute distress. Appears chronically ill. Eyes: Pupils equal, round and reactive to light. EOMI ENT: Pharynx normal. Oropharynx is moist, no tonsillar hypertrophy or exudates Neck: Normal inspection. Neck supple. CVS: Normal heart rate and rhythm. Pulses normal. Anterior chest wall is nontender Respiratory: No respiratory distress. Diminished lung sounds in the left lower lobe, with crackles. No wheezes. Abdomen: Soft and nontender. +BS x4 Skin: Skin warm and dry. Normal skin color. Normal skin turgor. No rashes. Extremities: No lower extremity edema. Neuro: Oriented X 3. No motor deficit. No sensory deficit. CN II-XII intact. Course Reevaluation(s) Reevaluation #1: Chest x-ray revealing New peripheral airspace disease at the left lung base and probable mildadjacent pleural effusion or pleural thickening. This probably represents pneumonia. Pulmonary infarct cannot be excluded and clinical correlation recommended. Of medical record, patient had a lung abscess in 2020. Patient does not have any risk factors for pulmonary embolism however given his HIV status as well as history of lung abscess past, will obtain chest x-ray for further evaluation. Patient had some relief with Tylenol, however still experiencing chest pain. Morphine 2 mg IV ordered Time: 09:30 Reevaluation #2: Chest CTA returns and read as No evidence of pulmonary embolism. New bilobed lesion in the peripheral inferior segment of the lingula with central low-attenuation suggestive of necrosis or cavity formation. Infectious or inflammatory process is favored. Neoplastic process cannot be excluded. Question new rightlower lobe nodule versus atelectasis. Continued chest CT follow-up. following treatment recommended. Given patient's history of HIV without unknown CD4 count and patient was previously seen by infectious disease specialist, Dr. Ko, I reached out to her for any recommendations. She recommends antibiotics like Augmentin and to have Pulmonary outpatient follow up. Patient remains stable, reports that his pain improved with morphine. On ambulation oxygen saturation remained at 96% on room air. Patient does not qualify for hospital admission for presumed pneumonia at this time. Discussed these results with patient, patient concerned as he is isolated at home has no form of transportation and is unable to strip picker his antibiotics. Discussed this with case management who will look into further home services for patient. Patient medicated with toradol 30mg IM,1 L of IV fluids and Ceftin 500 mg p.o. Pending case management services at this time. Time: 11:47 Reevaluation #3: Will cover patient with Ceftin 500mg PO, as pt gets rash from penicillins, will also add doxycycline due to immunosupresion with HIV. Patient stable for discharge. Case management reports that patient has a VNA at home, who is his sister. Patient given precautions on when to return. Patient understands and agrees with plan. Patient is stable for discharge. Medications Administered Discontinued Medications Generic Name Dose Route Start Last Admin Trade Name Freq PRN Reason Stop Dose Admin Acetaminophen 975 mg 12/20/22 08:15 12/20/22 08:25 Acetaminophen 325 Mg Tablet PO 12/20/22 08:16 975 mg ONCE ONE Administration Cefuroxime Axetil 500 mg 12/20/22 12:04 12/20/22 12:56 Cefuroxime Axetil 500 Mg Tablet PO 12/20/22 12:05 500 mg ONCE ONE Administration Sodium Chloride 1,000 mls @ 999 mls/hr 12/20/22 11:58 12/20/22 12:56 Ns IVCONT 12/20/22 12:58 999 mls/hr .Q1H1M ONE Administration Iohexol 65 ml 12/20/22 10:03 12/20/22 10:03 Iohexol 350 Mg/Ml 100 Ml Infus..Btl IV 12/20/22 10:04 65 ml ONCE ONE Administration Ketorolac Tromethamine 30 mg 12/20/22 12:49 12/20/22 12:55 Ketorolac Tromethamine 30 Mg/Ml Vial IVPUSH 12/20/22 12:50 30 mg ONCE ONE Administration Morphine Sulfate 2 mg 12/20/22 09:40 12/20/22 09:50 Morphine Sulfate 2 Mg/Ml Cartridge IVPUSH 12/20/22 09:41 2 mg ONCE ONE Administration Protocol Medical Decision Making Medical Decision Making MDM Narrative: 57-year-old male, with a past medical history of HIV, presenting to the emergency department for chest pain and productive cough with brown colored sputum for the last 4 days. Patient was given aspirin EN route with minimal relief. On examination patient is afebrile O2 saturation at 93% on room air. Diminished lung sounds in the left lower lobe with crackles, no wheezes. Patient appears chronically ill. Patient reports that he has an allergy to codeine, has tolerated Tylenol and morphine in the past without any problems in the past. Plan: Labs, EKG, chest x-ray ordered. Differential Diagnosis Differential Diagnoses: The differential diagnosis associated with the presentation includes Pneumonia, upper respiratory infection, COVID, ACS Lab Data MDM Lab Attestation statement: I reviewed the patient's lab results. 12/20/22 08:21 12/20/22 08:21 Labs: Lab Results 12/20/22 12/20/22 12/20/22 Range/Units 08:20 08:21 08:21 WBC 10.3 (4.8-10.8) X10*3/uL RBC 4.52 L (4.60-5.80) X10*6/uL Hgb 13.1 L (14.0-18.0) g/dl Hct 40.5 L (42.0-52.0) % MCV 89.6 (80.0-98.0) fL MCH 29.0 (27.0-33.0) pg MCHC 32.3 (31.0-36.0) g/dl RDW 15.0 (11.0-16.0) % Plt Count 284 (160-400) X10*3/uL MPV 10.7 (9.4-12.4) fL Immature Gran % (Auto) 0.4 (0.0-0.4) % Neut % (Auto) 76.7 H (45-73) % Lymph % (Auto) 9.2 L (20-40) % [place] % (Auto) 12.8 H (2-11) % Eos % (Auto) 0.7 (0-4) % Baso % (Auto) 0.2 (0-2) % Lymph # (Auto) 1.0 L (1.2-4.9) X10*3/uL [place] # (Auto) 1.3 H (0.1-1.2) X10*3/uL Eos # (Auto) 0.1 (0.0-0.4) X10*3/uL Baso # (Auto) 0.0 (0.0-0.2) X10*3/uL Abs Immat Gran (auto) 0.04 H (0.00-0.03) X10*3/uL Absolute Neuts (auto) 7.9 (2.0-8.3) x10*3/uL Absolute Nucleated RBC 0.000 (0.0-0.012) X10*3/uL Nucleated RBC % (auto) 0.0 (0.0-0.2) /100WBC Sodium 142 (135-145) mmol/L Potassium 3.9 (3.3-5.1) mmol/L Chloride 103 (96-108) mmol/L Carbon Dioxide 32 H (22-29) mmol/L Anion Gap 11 L (12-20) BUN 18 H (9-16) mg/dL Creatinine 1.05 (0.5-1.4) mg/dL Estim Creat Clear Calc 62.9 Estimated GFR > 60 Random Glucose 122 H (60-115) mg/dL Calcium 8.5 D (8.4-10.2) mg/dL Magnesium 2.1 (1.6-2.6) mg/dL Total Bilirubin 0.4 (0.0-1.0) mg/dL Direct Bilirubin 0.2 (0.0-0.5) mg/dL AST 11 (5-37) U/L ALT 20 (0-40) U/L Alkaline Phosphatase 66 (39-117) U/L Troponin I High Sens (<3.5-35.0) ng/L Total Protein 6.7 (6.5-8.0) g/dL Albumin 3.8 (3.5-5.0) g/dL Urine Color Urine Appearance Urine pH (5.0-9.0) Ur Specific [place] (1.005-1.025) Urine Protein (Neg-Trace) mg/dL Urine Glucose (UA) (Negative) mg/dL Urine Ketones (Negative) mg/dL Urine Blood (Negative) Urine Nitrite (Negative) Ur Leukocyte Esterase (Negative) Influenza Type A (PCR) NEGATIVE (Negative) Influenza Type B (PCR) NEGATIVE (Negative) RSV RNA Qual (PCR) NEGATIVE (Negative) SARS-CoV-2 RNA (RT-PCR) NEGATIVE (Negative) 12/20/22 12/20/22 Range/Units 08:21 09:01 WBC (4.8-10.8) X10*3/uL RBC (4.60-5.80) X10*6/uL Hgb (14.0-18.0) g/dl Hct (42.0-52.0) % MCV (80.0-98.0) fL MCH (27.0-33.0) pg MCHC (31.0-36.0) g/dl RDW (11.0-16.0) % Plt Count (160-400) X10*3/uL MPV (9.4-12.4) fL Immature Gran % (Auto) (0.0-0.4) % Neut % (Auto) (45-73) % Lymph % (Auto) (20-40) % Se[place] % (Auto) (2-11) % Eos % (Auto) (0-4) % Baso % (Auto) (0-2) % Lymph # (Auto) (1.2-4.9) X10*3/uL [place] # (Auto) (0.1-1.2) X10*3/uL Eos # (Auto) (0.0-0.4) X10*3/uL Baso # (Auto) (0.0-0.2) X10*3/uL Abs Immat Gran (auto) (0.00-0.03) X10*3/uL Absolute Neuts (auto) (2.0-8.3) x10*3/uL Absolute Nucleated RBC (0.0-0.012) X10*3/uL Nucleated RBC % (auto) (0.0-0.2) /100WBC Sodium (135-145) mmol/L Potassium (3.3-5.1) mmol/L Chloride (96-108) mmol/L Carbon Dioxide (22-29) mmol/L Anion Gap (12-20) BUN (9-16) mg/dL Creatinine (0.5-1.4) mg/dL Estim Creat Clear Calc Estimated GFR Random Glucose (60-115) mg/dL Calcium (8.4-10.2) mg/dL Magnesium (1.6-2.6) mg/dL Total Bilirubin (0.0-1.0) mg/dL Direct Bilirubin (0.0-0.5) mg/dL AST (5-37) U/L ALT (0-40) U/L Alkaline Phosphatase (39-117) U/L Troponin I High Sens < 2.7 (<3.5-35.0) ng/L Total Protein (6.5-8.0) g/dL Albumin (3.5-5.0) g/dL Urine Color Yellow Urine Appearance Clear Urine pH 8.5 (5.0-9.0) Ur Specific [place] 1.015 (1.005-1.025) Urine Protein Negative (Neg-Trace) mg/dL Urine Glucose (UA) Negative (Negative) mg/dL Urine Ketones Negative (Negative) mg/dL Urine Blood Negative (Negative) Urine Nitrite Negative (Negative) Ur Leukocyte Esterase Negative (Negative) Influenza Type A (PCR) (Negative) Influenza Type B (PCR) (Negative) RSV RNA Qual (PCR) (Negative) SARS-CoV-2 RNA (RT-PCR) (Negative) Independent Interpretation I performed an independent interpretation of an: EKG, Plain X-Ray and CT Scan Interpretation: I agree with the radiology reports. EKG sinus tachycardia at 101 beats per minute, MN interval 134, QTC 448. Incomplete right bundle-branch noted, similar to previous. No ST elevation or depression. No acute ischemic changes. Radiology Impression Discussion of test interpretation with radiology: I have reviewed the radiologist's reading. Radiologist Impression: CLINICAL INFORMATION: Reason for Exam chest pain COMPARISON: Chest x-ray from earlier the same day and chest CT January 2022 TECHNIQUE: Prior to contrast administration, noncontrast localization images were obtained. ? Subsequently, multidetector volumetric imaging was performed from the thoracic inlet to below the diaphragms following the administration of 65 mL Omnipaque 350 intravenous contrast. No contrast reaction reported Sagittal, coronal, and MIP oblique sagittal reformatted images were obtained on the CT workstation, uploaded to PACS, and reviewed. This CT examination was performed using dose optimization techniques as appropriate, variously including the following: *Automated exposure control *Adjustment of mA and/or kV according to patient size (this includes techniques or standardized protocols for targeted exams where dose is matched to indication/reason for exam; i.e. extremities or head) *Use of iterative reconstruction technique Total exam dose-length product 197 mGy-cm FINDINGS: QUALITY OF STUDY/CONTRAST BOLUS: Satisfactory. PULMONARY ARTERIES: No pulmonary emboli.? THORACIC AORTA: No aneurysm. LUNG: There is a new bilobed lesion in the inferior segment of the lingula. This has central low attenuation cystic change or cavity formation. Each bilobed component measures approximately 3 cm. Together this measures approximately 7.8 x 3.3 x 2 cm in sagittal AP and transverse dimension. There is some surrounding consolidation/airspace disease. There is question of a a second new pulmonary nodule versus atelectasis in the posterior costophrenic sulcus of the right lower lobe. This measures 1 x 1.6 cm axial image 383 series 7. PLEURA: Trace left pleural effusion. No right pleural effusion. No pneumothorax. MEDIASTINUM: Normal heart size.? No pericardial effusion.? No hilar or mediastinal lymphadenopathy.? No evidence of septal bowing or right heart strain. CORONARY ARTERY CALCIFICATION: None visualized on this study. CHEST WALL/AXILLA: No axillary or internal mammary lymphadenopathy. OSSEOUS STRUCTURES: Mild midthoracic vertebral body compression fractures and volar to 2021 exam. UPPER ABDOMEN: Liver not completely visualized but may be enlarged.. No reflux of contrast into the hepatic veins to suggest elevated right heart pressures. CT/CT angio chest PE protocol IMPRESSION: No evidence of pulmonary embolism. New bilobed lesion in the peripheral inferior segment of the lingula with central low-attenuation suggestive of necrosis or cavity formation. Infectious or inflammatory process is favored. Neoplastic process cannot be excluded. Question new right lower lobe nodule versus atelectasis. Continued chest CT follow-up following treatment recommended. ? VTE: negative Dictated By: Karuna Garza MD Signed By: <Electronically signed by Norma CLINICAL INFORMATION: Chest pain and cough COMPARISON: Previous chest CT January 2022 and chest x-ray most recent October 2022 TECHNIQUE: 2 views of the chest were obtained. FINDINGS: The cardiac and mediastinal contours are stable. There is new peripheral airspace disease seen at the left lung base. There may be a small pleural effusion or adjacent pleural thickening. Right lung is clear. No right pleural effusion. No pneumothorax. Multiple old mid thoracic vertebral body compression fractures similar to previous exams. XR/XR chest 2V IMPRESSION: New peripheral airspace disease at the left lung base and probable mild adjacent pleural effusion or pleural thickening. This probably represents pneumonia. Pulmonary infarct cannot be excluded and clinical correlation recommended. Dictated By: Karuna Garza MD Independent Historian Clinical information obtained from an independent historian. History obtained from or confirmed by: EMS External Record Review External record reviewed: Inpatient record, Office record, Outpatient record, Prior outpatient labs and Prior outpatient radiology Prescription Management I considered prescription management with: Pain Medication and Antibiotic Chronic Conditions Patient?s care impacted by: Other (HIV) Discharge Plan Discharge Clinical Impression: Pneumonia Patient Disposition: Home, Self-Care Instructions: Community Acquired Pneumonia (ED) Additional Instructions: Please take both antibiotics as prescribed. Finish the entire course. You already received your 1st dose of cefuroxime today, please take 2nd dose tonight. Take doxycycline as directed. Drink plenty of fluids get plenty of rest. Take [id number] Tylenol as needed for your pain. You should follow-up with your Infectious Disease specialist to ensure that your CD4 count is within normal limits. Please follow-up with air valve repairer, I referred you today. Call today to make an appointment. If any new or worsening symptoms occur, please return for further evaluation. Prescriptions: New cefuroxime axetil 500 mg tablet 500 mg PO BID Qty: 9 0RF doxycycline hyclate 100 mg tablet 100 mg PO BID 5 Days Qty: 10 0RF No Action oxycodone 5 mg tablet 5 mg PO Q6H PRN (Reason: Pain, Moderate (Pain Scale 4-6) 7 Days Qty: 28 0RF Rx Instructions: Partial Fill upon patient request. ibuprofen 800 mg tablet 800 mg PO Q8H PRN (Reason: for pain) Qty: 90 3RF gabapentin 600 mg tablet 1 tab PO TID clonazepam 1 mg tablet 1 tab PO BEDTIME tramadol 50 mg tablet 1 tab PO DAILY acetaminophen 500 mg tablet 1 tab PO BID PRN (Reason: Pain (Scale Score 1-3)) Biktarvy 50-200-25 mg tablet 1 tab PO DAILY amlodipine 5 mg tablet 1 tab PO DAILY propranolol 120 mg capsule,extended release 24 hr 1 cap PO DAILY diphenhydramine HCl [Banophen] 25 mg tablet 2 tab PO BEDTIME PRN (Reason: Insomnia) fluticasone propionate [Flovent HFA] 110 mcg/actuation HFA aerosol inhaler 1 puff inhalation BID albuterol sulfate 90 mcg/actuation HFA aerosol inhaler 2 puff PO Q4H PRN (Reason: Wheezing) lidocaine 4 % adhesive patch,medicated 1 patch topical DAILY PRN (Reason: chest wall pain) Qty: 10 0RF risperidone 2 mg tablet 1 tab PO BEDTIME pantoprazole 40 mg tablet,delayed release (DR/EC) 1 tab PO DAILY mirtazapine 45 mg tablet 1 tab PO BEDTIME albuterol sulfate 2.5 mg /3 mL (0.083 %) solution for nebulization 2.5 mg inhalation Q4H PRN (Reason: shortness of breath or wheezing) Ensure Liquid 1 ea PO TID diphenhydramine HCl [Allergy Relief(diphenhydramin)] 25 mg Tablet 25 mg PO Q6H PRN (Reason: Itching) Qty: 120 0RF enoxaparin 40 mg/0.4 mL Syringe 40 mg subcut Q24H 42 Days Qty: 16.8 0RF oxycodone [OxyContin] 10 mg Tablet,Oral Only,Ext.Rel.12 Hr 10 mg PO BID 7 Days Qty: 14 0RF Rx Instructions: Partial Fill upon patient request. docusate sodium 100 mg Capsule 100 mg PO BID 30 Days Qty: 60 0RF diphenhydramine HCl [Benadryl Allergy] 25 mg tablet 25 mg PO BEDTIME PRN celecoxib [Celebrex] 200 mg capsule 200 mg PO BID 30 Days Qty: 60 3RF Referrals: [facility] [Provider Group] [facility] [Outside] Interventions: ED Discharge Assessment Last Done: 12/20/22 13:21 Discharge Date/Time: 12/20/22 13:22 Print Language: Divehi
--- NOTE | 2022-12-20 08:06 | PC.NURSE ---
Pt found on stretcher with airway open and patent, no obvious signs of distress, no difficulty breathing. A&ox4, skin pale, warm, and dry. Lung sounds clr and equal bilaterally all bonilla. Heart sounds normal. Bowel sounds present all bonilla. Abdomen soft, non-tender. No edema noted. Pt complaining on 10/10 chest pain pressure and productive cough that radiates to right side and right arm. Pt reports the pain worsens when coughing.
[2022-12-20 08:25] LABS: MANUAL DIFF FLAG NO
[2022-12-20] MEDS: Acetaminophen 325 MG TABLET 975 MG PO (08:25)
[2022-12-20 08:30] LABS: Basophils Percent Auto 0.2 % (0-2); Eosinophils Absolute Auto 0.1 X10*3/uL (0.0-0.4); Eosinophils Percent Auto 0.7 % (0-4); Hematocrit 40.5 % (42.0-52.0); Hemoglobin 13.1 g/dl (14.0-18.0); Imm Gran Abs Auto 0.04 X10*3/uL (0.00-0.03); Imm Gran Pct Auto 0.4 % (0.0-0.4); Lymphocytes Percent Auto 9.2 % (20-40); Mean Corpuscular HGB Conc 32.3 g/dl (31.0-36.0); Mean Corpuscular Volume 89.6 fL (80.0-98.0); Mean Platelet Volume 10.7 fL (9.4-12.4); Monocytes Absolute Auto 1.3 X10*3/uL (0.1-1.2); Monocytes Percent Auto 12.8 % (2-11); Neutrophils Absolute Auto 7.9 x10*3/uL (2.0-8.3); Neutrophils Percent Auto 76.7 % (45-73); Platelet Count 284 X10*3/uL (160-400); Red Blood Count 4.52 X10*6/uL (4.60-5.80); White Blood Count 10.3 X10*3/uL (4.8-10.8)
[2022-12-20 08:54] LABS: Alanine Aminotransferase 20 U/L (0-40); Albumin Level 3.8 g/dL (3.5-5.0); Alkaline Phosphatase 66 U/L (39-117); Anion Gap 11 (12-20); Aspartate Amino Transferase 11 U/L (5-37); Bilirubin Direct 0.2 mg/dL (0.0-0.5); Bilirubin Total 0.4 mg/dL (0.0-1.0); Blood Urea Nitrogen 18 mg/dL (9-16); Calcium 8.5 mg/dL (8.4-10.2); Carbon Dioxide 32 mmol/L (22-29); Chloride 103 mmol/L (96-108); Creatinine Clr Calc Pharmacy 62.9; Estimated Glomerular Filt Rate > 60; Glucose Random 122 mg/dL (60-115); Magnesium 2.1 mg/dL (1.6-2.6); Potassium 3.9 mmol/L (3.3-5.1); Sodium 142 mmol/L (135-145); Total Protein 6.7 g/dL (6.5-8.0)
[2022-12-20 08:58] LABS: Troponin-I High Sensitivity < 2.7 ng/L (<3.5-35.0)
[2022-12-20 09:07] LABS: Appearance Urine Clear; Color Urine Yellow; Glucose Urine UA Negative (Negative); Leukocyte Esterase Urine Negative (Negative); Nitrite Urine Negative (Negative); PH 8.5 (5.0-9.0); Specific Gravity - Urine 1.015 (1.005-1.025); Urine Blood Negative (Negative); Urine Ketones Negative (Negative); Urine Protein Negative (Neg-Trace)
[2022-12-20 09:13] LABS: Influenza A PCR NEGATIVE (Negative); Influenza B PCR NEGATIVE (Negative); Resp Syncy Virus RNA Qual PCR NEGATIVE (Negative); SARS COV2 PCR INHOUSE NEGATIVE (Negative)
[2022-12-20] MEDS: Morphine Sulfate 2 MG/ML CARTRIDGE IVPUSH (09:50)
[2022-12-20] MEDS: iohexoL 350 MG/ML 100 ML INFUS..BTL 65 ML IV (10:03)
[2022-12-20] MEDS: Ketorolac Tromethamine 30 MG/ML VIAL IVPUSH (12:55)
[2022-12-20] MEDS: 0.9 % Sodium Chloride 1,000 ML 999 ML IVCONT (12:56)
--- NOTE | 2022-12-20 13:00 | MHC.CM.ED ---
Received case management consult from HOSEA Dobbs student. Patient came to the ER due to chest pain. Work up found patient to have pneumonia. Does not qualify for inpatient. Patient feels he needs some detention at home. Met with patient in regards to discharge planning. 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 Patient's sister is his CAREER ADVISOR. PCP verified. Patient is active with [facility]. T/W spoke with Nyasia at [facility]. [facility] will authorize referral being sent out for VNA for detention[facility]. Patient needs transport home. Laura chair clifford kaplan. [facility] with chart. Continue to monitor for d/c needs.
== END 2022-12-20 13:22 | disposition home or self-care (01) ==
PROVIDERS: Physician Assistant Medical; Emergency Provider Emergency Medicine; PCP Internal Medicine
DX: J18.9 Pneumonia, unspecified organism (principal); R07.9 Chest pain, unspecified; Z20.822 Contact with and (suspected) exposure to COVID-19; B20 Human immunodeficiency virus [HIV] disease; J45.909 Unspecified asthma, uncomplicated; I10 Essential (primary) hypertension; B19.20 Unspecified viral hepatitis C without hepatic coma; Z79.899 Other long term (current) drug therapy
CPT/HCPCS: 0241U; 71046; 71275; 80048; 80076; 81003; 83735; 84484; 85025; 93005; 96374; 96375; 99284; 99285; J1885; J2270; Q9967

== ENCOUNTER 2022-12-21 00:14 | Emergency (ER) | payer OTHER, SELFPAY ==
[2022-12-21 00:28] VITALS: BP 129/79; BP 156/98; PULSE 110; PULSE 96; RESP 16; TEMP 36.5; O2SAT 92; O2SAT 98; BMI 20.8
--- NOTE | 2022-12-21 00:33 | ED_ITS ---
HPI - Back Pain/Injury General Chief Complaint: Back Pain/Injury Stated Complaint: back pain Time Seen by Provider: 12/21/22 00:31 Source: patient Mode of arrival: ambulatory Limitations: no limitations History of Present Illness HPI Narrative: Patient history of HIV undetectable viral load just seen and discharged for pneumonia on doxycycline and Ceftin patient comes back for complaining of body aches same complaint when he was here earlier today says that unable to sleep feel anxious Related Data Home Medications Medication Instructions Recorded Confirmed clonazepam 1 mg tablet 1 tab PO BEDTIME 04/21/21 02/12/22 gabapentin 600 mg tablet 1 tab PO TID 04/21/21 02/12/22 tramadol 50 mg tablet 1 tab PO DAILY 04/21/21 02/12/22 acetaminophen 500 mg tablet 1 tab PO BID PRN Pain (Scale Score 06/06/21 02/12/22 1-3) bictegravir 50 mg-emtricitabine 1 tab PO DAILY 06/06/21 02/12/22 200 mg-tenofovir alafenam 25 mg tablet (Biktarvy) amlodipine 5 mg tablet 1 tab PO DAILY 06/19/21 02/12/22 propranolol 120 mg capsule,24 1 cap PO DAILY 06/19/21 02/12/22 hr,extended release albuterol sulfate 90 mcg/actuation 2 puff PO Q4H PRN Wheezing 01/17/22 02/12/22 aerosol inhaler diphenhydramine HCl 25 mg tablet 2 tab PO BEDTIME PRN Insomnia 01/17/22 02/12/22 (Banophen) fluticasone propionate 110 1 puff inhalation BID 01/17/22 02/12/22 mcg/actuation HFA aerosol inhaler (Flovent HFA) albuterol sulfate 2.5 mg/3 mL 2.5 mg inhalation Q4H PRN 02/12/22 02/12/22 (0.083 %) solution for nebulization shortness of breath or wheezing food supplemt, lactose-reduced 1 ea PO TID 02/12/22 02/12/22 (Ensure oral liquid) mirtazapine 45 mg tablet 1 tab PO BEDTIME 02/12/22 02/12/22 pantoprazole 40 mg tablet,delayed 1 tab PO DAILY 02/12/22 02/12/22 release risperidone 2 mg tablet 1 tab PO BEDTIME 02/12/22 02/12/22 diphenhydramine HCl 25 mg tablet 25 mg PO BEDTIME PRN 02/27/22 (Benadryl Allergy) Previous Rx's Medication Instructions Recorded lidocaine 4 % topical patch 1 patch topical DAILY PRN chest 01/19/22 wall pain #10 ea diphenhydramine HCl 25 mg tablet 25 mg PO Q6H PRN Itching #120 tabs 02/15/22 (Allergy Relief (diphenhydramine)) docusate sodium 100 mg capsule 100 mg PO BID 30 days #60 caps 02/15/22 enoxaparin 40 mg/0.4 mL 40 mg (0.4 mL) subcut Q24H 42 days 02/15/22 subcutaneous syringe #16.8 mL oxycodone 10 mg tablet,crush 10 mg PO BID 7 days #14 tabs 02/15/22 resistant,extended release 12 hr (OxyContin) oxycodone 5 mg tablet 5 mg PO Q6H PRN Pain, Moderate 04/06/22 (Pain Scale 4-6 7 days #28 tabs celecoxib 200 mg capsule (Celebrex) 200 mg PO BID 30 days #60 caps 08/30/22 ibuprofen 800 mg tablet 800 mg PO Q8H PRN for pain #90 tabs 11/25/22 cefuroxime axetil 500 mg tablet 500 mg PO BID #9 tabs 12/20/22 doxycycline hyclate 100 mg tablet 100 mg PO BID 5 days #10 tabs 12/20/22 Allergies Allergy/AdvReac Type Severity Reaction Status Date / Time Seasonal Allergies Allergy Intermediate Eye Verified 12/20/22 07:44 Drainage codeine Allergy Mild RASH Verified 12/20/22 07:44 [From Tylenol-Codeine #3] levofloxacin [From Levaquin] Allergy Mild Rash Verified 12/20/22 07:44 metoclopramide [From Reglan] Allergy Mild Rash Verified 12/20/22 07:44 acetaminophen Allergy Unknown Unknown Verified 12/20/22 07:44 [Tylenol-Codeine #3] ibuprofen [From Motrin] Allergy Unknown Reflux Verified 12/20/22 07:44 Penicillins [PENICILLINS] Allergy Unknown Rash Verified 12/20/22 07:44 tramadol [From Ultram] AdvReac Mild Nausea and Verified 12/20/22 07:44 Vomiting Review of Systems Review of Systems: Yes all other systems are reviewed and are negative [facility] Past Medical History Medical History Asthma Closed fracture of leg Depression Hemorrhoids Hepatitis C HIV (human immunodeficiency virus infection) Hypertension Kidney stones Pleuritic chest pain Pneumonia Substance abuse Surgical History H/O hemorrhoidectomy Social History Social History Household Members: Family Housing: Apartment Do you presently have visiting nurse or other home services: Yes ([employer]) Alcohol intake: never Patient Tobacco Use Status: Never used Tobacco Second Hand Smoke Exposure: No Advance Directives: Yes Advance Directives on File: Yes Advance Directives Date on File: 04/25/21 service: No Current occupational status: disabled Physical Exam Vital Signs: Vital Signs: Last Vital Signs Temp 97.9 F 12/21/22 06:00 Pulse 57 12/21/22 06:00 Resp 12 12/21/22 06:00 BP 103/62 12/21/22 06:00 Pulse Ox 95 12/21/22 06:00 O2 Del Method Room Air 12/21/22 06:00 BMI result Body Mass Index 20.8 Appearance: Alert. Oriented X3. No acute distress. Anxious Eyes: PERRLA, No Nystagmus ENT: Pharynx normal. Oral Mucosa moist Neck: Normal inspection. Neck supple. CVS: Normal heart rate and rhythm. Pulses normal. Respiratory: No respiratory distress. Equal air entry bilateral, no wheezing/rales/rhonchi Abdomen: Soft and nontender. Bowel sounds are present, no mass palpable, no CVA tenderness Skin: Skin warm and dry. Normal skin color. Normal skin turgor. Extremities: No lower extremity edema. No calf tenderness Neuro: Oriented X 3. No motor deficit. No sensory deficit.No cerebellar signs , cranial nerves II-XII intact Medications Administered Discontinued Medications Generic Name Dose Route Start Last Admin Trade Name Freq PRN Reason Stop Dose Admin Al Hydroxide/Mg Hydroxide 30 ml 12/21/22 03:24 12/21/22 03:43 Magnesium Hydrox/Alum Hydrox 30 Ml Oral.Susp PO 12/21/22 03:25 30 ml ONCE ONE Administration Sodium Chloride 1,000 mls @ 999 mls/hr 12/21/22 00:39 12/21/22 02:03 Ns IV 12/21/22 01:39 Infused .Q1H1M ONE Infusion Ketorolac Tromethamine 30 mg 12/21/22 00:39 12/21/22 00:56 Ketorolac Tromethamine 30 Mg/Ml Vial IVPUSH 12/21/22 00:40 30 mg ONCE ONE Administration Lorazepam 1 mg 12/21/22 00:39 12/21/22 00:56 Lorazepam 2 Mg/Ml Vial IVPUSH 12/21/22 00:40 1 mg ONCE ONE Administration Medical Decision Making Lab Data MDM Lab Attestation statement: I reviewed the patient's lab results. Labs: Lab Results 12/21/22 Range/Units 01:01 Urine Color Yellow Urine Appearance Clear Urine pH 7.5 (5.0-9.0) Ur Specific Temple <= 1.005 (1.005-1.025) Urine Protein Negative (Neg-Trace) mg/dL Urine Glucose (UA) Negative (Negative) mg/dL Urine Ketones Negative (Negative) mg/dL Urine Blood Negative (Negative) Urine Nitrite Negative (Negative) Ur Leukocyte Esterase Negative (Negative) Discharge Plan Discharge Clinical Impression: Pneumonia, Anxiety Patient Disposition: Home, Self-Care Instructions: Community Acquired Pneumonia (ED), Anxiety (ED) Additional Instructions: Continue antibiotics as prescribed during the earlier visit and other medications and follow with PCP Prescriptions: No Action oxycodone 5 mg tablet 5 mg PO Q6H PRN (Reason: Pain, Moderate (Pain Scale 4-6) 7 Days Qty: 28 0RF Rx Instructions: Partial Fill upon patient request. ibuprofen 800 mg tablet 800 mg PO Q8H PRN (Reason: for pain) Qty: 90 3RF gabapentin 600 mg tablet 1 tab PO TID clonazepam 1 mg tablet 1 tab PO BEDTIME tramadol 50 mg tablet 1 tab PO DAILY acetaminophen 500 mg tablet 1 tab PO BID PRN (Reason: Pain (Scale Score 1-3)) Biktarvy 50-200-25 mg tablet 1 tab PO DAILY amlodipine 5 mg tablet 1 tab PO DAILY propranolol 120 mg capsule,extended release 24 hr 1 cap PO DAILY diphenhydramine HCl [Banophen] 25 mg tablet 2 tab PO BEDTIME PRN (Reason: Insomnia) fluticasone propionate [Flovent HFA] 110 mcg/actuation HFA aerosol inhaler 1 puff inhalation BID albuterol sulfate 90 mcg/actuation HFA aerosol inhaler 2 puff PO Q4H PRN (Reason: Wheezing) lidocaine 4 % adhesive patch,medicated 1 patch topical DAILY PRN (Reason: chest wall pain) Qty: 10 0RF risperidone 2 mg tablet 1 tab PO BEDTIME pantoprazole 40 mg tablet,delayed release (DR/EC) 1 tab PO DAILY mirtazapine 45 mg tablet 1 tab PO BEDTIME albuterol sulfate 2.5 mg /3 mL (0.083 %) solution for nebulization 2.5 mg inhalation Q4H PRN (Reason: shortness of breath or wheezing) Ensure Liquid 1 ea PO TID diphenhydramine HCl [Allergy Relief(diphenhydramin)] 25 mg Tablet 25 mg PO Q6H PRN (Reason: Itching) Qty: 120 0RF enoxaparin 40 mg/0.4 mL Syringe 40 mg subcut Q24H 42 Days Qty: 16.8 0RF oxycodone [OxyContin] 10 mg Tablet,Oral Only,Ext.Rel.12 Hr 10 mg PO BID 7 Days Qty: 14 0RF Rx Instructions: Partial Fill upon patient request. docusate sodium 100 mg Capsule 100 mg PO BID 30 Days Qty: 60 0RF cefuroxime axetil 500 mg tablet 500 mg PO BID Qty: 9 0RF doxycycline hyclate 100 mg tablet 100 mg PO BID 5 Days Qty: 10 0RF diphenhydramine HCl [Benadryl Allergy] 25 mg tablet 25 mg PO BEDTIME PRN celecoxib [Celebrex] 200 mg capsule 200 mg PO BID 30 Days Qty: 60 3RF Interventions: ED Discharge Assessment Last Done: 12/21/22 06:22 Discharge Date/Time: 12/21/22 06:41
[2022-12-21] MEDS: Ketorolac Tromethamine 30 MG/ML VIAL IVPUSH (00:56)
[2022-12-21] MEDS: LORazepam 2 MG/ML VIAL 1 MG IVPUSH (00:56)
[2022-12-21] MEDS: 0.9 % Sodium Chloride 1,000 ML 999 ML IV (00:57)
[2022-12-21 01:10] LABS: Appearance Urine Clear; Color Urine Yellow; Glucose Urine UA Negative (Negative); Leukocyte Esterase Urine Negative (Negative); Nitrite Urine Negative (Negative); PH 7.5 (5.0-9.0); Specific Gravity - Urine <= 1.005 (1.005-1.025); Urine Blood Negative (Negative); Urine Ketones Negative (Negative); Urine Protein Negative (Neg-Trace)
[2022-12-21 02:08] VITALS: BP 108/74; PULSE 78; RESP 14; TEMP 37; O2SAT 95
--- NOTE | 2022-12-21 02:20 | PC.NURSE ---
Pt aox4 resting at the bedside. Reports generalized body aches, 04/19. VSS. Medicated as ordered. Tolerated well. Will continue to monitor.
[2022-12-21] MEDS: Magnesium Hydrox/Alum Hydrox 30 ML ORAL.SUSP PO (03:43)
--- NOTE | 2022-12-21 03:45 | PC.NURSE ---
Medicated PO as ordered. Tolerated well.
--- NOTE | 2022-12-21 04:08 | PC.NURSE ---
Pt asleep in no apparent distress. Breaths are even regular and unlabored with equal chest rises. Will continue to monitor.
[2022-12-21 06:00] VITALS: BP 103/62; PULSE 57; RESP 12; TEMP 36.6; O2SAT 95
--- NOTE | 2022-12-21 06:21 | PC.NURSE ---
IV line removed. Pt tolerated well. Discharge instructions reviewed with pt. Pt verbalizes understanding. Two bus passes provided to pt to return home.
== END 2022-12-21 06:41 | disposition home or self-care (01) ==
PROVIDERS: Emergency Provider Internal Medicine
DX: J18.9 Pneumonia, unspecified organism (principal); M54.50 Low back pain, unspecified; F41.9 Anxiety disorder, unspecified; Z79.899 Other long term (current) drug therapy
CPT/HCPCS: 81003; 96361; 96374; 96375; 99284; J1885; J2060

== ENCOUNTER 2022-12-30 16:15 | Inpatient (IN) | payer OTHER, SELFPAY ==
--- NOTE | 2022-12-30 | ECG_ITS ---
Test Reason : cp Blood Pressure : / mmHG Vent. Rate : 092 BPM Atrial Rate : 092 BPM P-R Int : 164 ms QRS Dur : 110 ms QT Int : 358 ms P-R-T Axes : 057 053 048 degrees QTc Int : 442 ms Normal sinus rhythm Incomplete right bundle branch block Borderline ECG When compared with ECG of 20-DEC-2022 07:19, No significant change was found Referred By: Generic ED Physician Electronically Signed By:TALIB LÓPEZ
--- NOTE | ~2022-12-30 | XR_ITS ---
EXAMINATION: XR CHEST CLINICAL INFORMATION: Line placement COMPARISON: 01/03/2023 TECHNIQUE: Frontal view of the chest was obtained. FINDINGS: Catheter overlying the superior vena cava to the right of midline. There is no evidence for pneumothorax. ET tube 4.6 cm above ciro. Once again significant abnormality left lung with dense opacity in left upper lung. Some mild aeration in left midlung and dense opacity at left base. The right lung is showing improvement. Decreasing opacity in the right mid to lower lung most likely resolving fluid. XR/XR chest 1V IMPRESSION: Tubes and catheters as described above. Line overlying the superior vena cava. No pneumothorax. Decreasing density in the right mid to lower lung most consistent with resolving fluid. Persistent significant opacities on the left
--- NOTE | ~2022-12-30 | XR_ITS ---
EXAMINATION: XR CHEST CLINICAL INFORMATION: Post decortication COMPARISON: Previous chest x-ray most recent from yesterday TECHNIQUE: Frontal view of the chest was obtained. FINDINGS: The cardiac and mediastinal contours are stable. 2 left chest tubes are unchanged in position. There is a feeding tube with tip projecting over the proximal stomach. There is a right jugular line with tip projecting over the caval atrial junction. Surgical clips over the left pulmonary hilum. Improved aeration of the left lung without atelectasis at the left lung base. Small left pleural effusion or pleural thickening. No pneumothorax. Increasing atelectasis or consolidation at the right lung base and small right pleural effusion. XR/XR chest 1V IMPRESSION: Stable position of support line and tubes. Small left pleural effusion. No pneumothorax. Improved aeration of the left lung.
--- NOTE | ~2022-12-30 | XR_ITS ---
EXAMINATION: PORTABLE CHEST 1 VIEW CLINICAL INFORMATION: s/p ett placement. COMPARISON: 12/20/2022 chest x-ray and 12/30/2022 CT scan. TECHNIQUE: Portable frontal view of the chest was obtained. FINDINGS: Endotracheal tube tip approximately 3 cm above the ciro. There is new dense opacification overlying the left upper hemithorax with obscuration of both lung bases. Layering bilateral effusions would be difficult to exclude left more so than right. No pneumothorax. Reactive silhouette is difficult to assess due to the basilar opacities. No acute bony abnormality. XR/XR chest 1V IMPRESSION: Endotracheal tube tip approximately 3 cm above the ciro. New dense opacification overlying the left upper hemithorax with obscuration of both lung bases. In the acute setting from 12/30/2022, infectious etiology, mucus plugging, or infectious etiology would be favored. Clinical correlation would be helpful. Layering effusions would be difficult to exclude.
--- NOTE | ~2022-12-30 | XR_ITS ---
EXAMINATION: XR ABDOMEN CLINICAL INFORMATION: Constipation rule out obstruction COMPARISON: 2019 TECHNIQUE: Frontal view. FINDINGS: There is an enteric tube the tip of which projecting over the gastric antrum. This may be advanced further for optimal positioning. Small left pleural effusion at left lung base. There is increased amount of stool projecting over the distribution of the colon raising suspicion for constipation. There is no evidence of bowel obstruction, however. There is no evidence of abnormal calcifications. There is no acute skeletal structure changes. There is no evidence of small-bowel obstruction. There is no free air in the abdomen. XR/XR abdomen 1V IMPRESSION: * Increased amount of stool in the colon suggesting constipation. Please correlate with clinical presentation. * There is no evidence of bowel obstruction. * There is an enteric tube with its tip projecting over the gastric antrum. This may be advanced further for optimal positioning. * Small left pleural effusion.
--- NOTE | ~2022-12-30 | XR_ITS ---
EXAMINATION: XR CHEST CLINICAL INFORMATION: s/p ett placement COMPARISON: CT chest 01/03/2023. Chest x-ray 01/04/2023 TECHNIQUE: Frontal portable view of the chest was obtained. 4:14 PM FINDINGS: Tubes and lines: 1. Endotracheal tube tip 3 cm above the ciro. 2. Enteric catheter tip in stomach. 3. Right IJ catheter tip at caval atrial junction. 4. 2 left-sided chest tubes which are apically directed in place. Subcutaneous air along the wall chest wall and neck. The volume of the loculated left pleural effusion has significantly reduced since the prior exam. Small residual pleural fluid remains at the left lateral chest wall. There is improved aeration of the left lung. Streaky opacities and residual atelectasis still remain. The right lung normally aerated. XR/XR chest 1V IMPRESSION: 1. Endotracheal tube tip 3 cm above the ciro. 2. Enteric catheter tip in stomach. 3. Right IJ catheter tip at caval atrial junction. 4. 2 left-sided chest tubes which are apically directed in place. 5. Significant decrease in the volume of the loculated left pleural effusion. 6. Improved aeration of the left lung.
--- NOTE | ~2022-12-30 | FL_ITS ---
EXAMINATION: FL MODIFIED BARIUM SWALLOW CLINICAL INFORMATION: Dysphagia. COMPARISON: None available. TECHNIQUE: Modified barium swallow was performed in lateral fluoroscopy projection with oral administration of various consistencies of barium coated food in presence of speech therapist. FINDINGS: Following oral administration of thick barium, barium pudding and barium coated cracker, there is normal propagation of bolus from the oral cavity through the pharynx into esophagus without any evidence of obstruction, narrowing or stricture. No laryngeal penetration or aspiration seen. No retention of barium or food seen in the valleculae or piriform sinuses. FLUOROSCOPY TIME: 1.6 minutes DOSE AREA PRODUCT: 1.129 uGy-m2 (microgray-meter squared) FL/FL barium swallow modified IMPRESSION: Unremarkable modified barium swallow examination.
--- NOTE | ~2022-12-30 | XR_ITS ---
EXAMINATION: XR CHEST CLINICAL INFORMATION: Emphysema. Chest tubes. COMPARISON: Previous chest x-ray from yesterday TECHNIQUE: Frontal view of the chest was obtained. FINDINGS: 2 left chest tubes appear unchanged. The feeding tube and right jugular line has been removed. The cardiac and mediastinal contours are stable. There is left pleural thickening or small effusion similar to yesterday's exam. There is no pneumothorax or there are coarse lung markings. There is atelectasis or small infiltrate in the left lung and at the right lung base. The cardiac and mediastinal contours are stable. There are surgical clips projecting over the left pulmonary hilum. There may be a small right pleural effusion. Bony structures are unremarkable. XR/XR chest 1V IMPRESSION: Stable position of 2 left chest tubes and left pleural thickening or small effusion. No pneumothorax. Coarse lung markings bilaterally suggestive of pneumonia, left greater than right.
--- NOTE | ~2022-12-30 | XR_ITS ---
EXAMINATION: XR CHEST CLINICAL INFORMATION: Status post chest tube removal. COMPARISON: 01/09/2023 chest radiograph. TECHNIQUE: Frontal view of the chest was obtained. FINDINGS: Support devices: Interval removal of left chest tubes. There is a very small left pleural effusion. A definitive pneumothorax is not seen. The right lung is clear. The heart and mediastinal structures are unremarkable. XR/XR chest 1V IMPRESSION: Very small left pleural effusion without overt pneumothorax.
--- NOTE | ~2022-12-30 | CT_ITS ---
EXAMINATION: CT CHEST WITH CONTRAST CLINICAL INFORMATION: Left chest pain. History of pneumonia/abscess. HIV positive. COMPARISON: Previous chest CT most recent chest CTA 12/20/2022 and chest x-ray 12/21/2019. TECHNIQUE: Multidetector volumetric CT imaging of the chest was obtained after the administration of 65 mL of Omnipaque 350 intravenous contrast without immediate adverse reactions. Axial MIP volume rendering provided. Sagittal and coronal reformatted images were obtained. This CT examination was performed using dose optimization techniques as appropriate, variously including the following: *Automated exposure control *Adjustment of mA and/or kV according to patient size (this includes techniques or standardized protocols for targeted exams where dose is matched to indication/reason for exam; i.e. extremities or head) *Use of iterative reconstruction technique DLP: 203 mGy-cm FINDINGS: LUNGS: There is interval decrease in size in the bilobed cavitary lesion in the lateral segment of the lingula. Superior component measures 2.2 x 2.3 cm compared to 3 cm and more inferior component measures 2 x 3 cm compared to 2 x 4.5 cm on previous exam. This has a low-attenuation center suggestive of a cystic change or necrosis. There is increasing adjacent left lower lobe atelectasis or small infiltrate and volume loss. The previously identified 1 x 1.6 cm nodule in the posterior costophrenic sulcus of the right lower lobe appears decreased in size measuring 8 mm on current exam. There is adjacent right lower lobe subsegmental atelectasis. MEDIASTINUM: The mediastinum is normal. There are no enlarged hilar or mediastinal lymph nodes. Heart size is normal. No coronary artery calcification. No pericardial effusion. PLEURA: There is a small left pleural effusion increased from recent exam. There is no right pleural effusion. There is no pneumothorax. AXILLA: No lymphadenopathy. UPPER ABDOMEN: The liver is slightly low in attenuation suggestive of fatty infiltration. There are small bilateral renal stones. OSSEOUS STRUCTURES: Multiple mild midthoracic vertebral body compression fractures similar to previous exams. CT/CT chest w IV con IMPRESSION: Interval decrease in size in the bilobed lesion in the inferior segment of the lingula. This has a low-attenuation center suggestive of cystic change or necrosis. There is increasing adjacent left lower lobe atelectasis/small infiltrate. There is an increasing small left pleural effusion. Interval decrease in size in nodule in the right lower lobe. Minimal right lower lobe atelectasis. Given change in short period of time infectious or inflammatory process is favored. Fleischner guidelines were followed.
--- NOTE | ~2022-12-30 | CT_ITS ---
EXAMINATION: CT HEAD WITHOUT CONTRAST CLINICAL INFORMATION: Altered mental status. COMPARISON: CT head dated 01/17/2022. TECHNIQUE: Contiguous axial imaging was performed from the skull base to vertex without intravenous administration of contrast. This CT examination was performed using dose optimization techniques as appropriate, variously including the following: *Automated exposure control *Adjustment of mA and/or kV according to patient size (this includes techniques or standardized protocols for targeted exams where dose is matched to indication/reason for exam; i.e. extremities or head) *Use of iterative reconstruction technique DLP: 592.34 mGy-cm FINDINGS: No acute intracranial hemorrhage. No mass effect or midline shift. No parenchymal lesion. The oliveira-white differentiation is maintained. No extra-axial fluid collection. The ventricles and sulci are unremarkable. The basal cisterns are patent. The calvarium is intact. The visualized paranasal sinuses and mastoid air cells are clear. CT/CT head/brain wo IV con IMPRESSION: No acute intracranial hemorrhage or mass effect.
--- NOTE | ~2022-12-30 | XR_ITS ---
EXAMINATION: XR CHEST CLINICAL INFORMATION: Chest tubes COMPARISON: Chest x-ray 01/05/2023 TECHNIQUE: Frontal view of the chest was obtained. FINDINGS: Interval extubation. Enteric tube terminates below the level the diaphragm. Right-sided jugular catheter terminates at the cavoatrial junction. Mediastinal and left-sided chest tubes are again noted. The lungs are hypoinflated. Persistent small left-sided pleural effusion. No pneumothorax. XR/XR chest 1V IMPRESSION: 1. Interval extubation. 2. Persistent small left-sided pleural effusion.
--- NOTE | ~2022-12-30 | CT_ITS ---
EXAMINATION: CT CHEST, ABDOMEN AND PELVIS WITHOUT CONTRAST. CLINICAL INFORMATION: Sudden decompensation. Aspiration, resp failure. COMPARISON: Recent 05/01/2023 CT scan of the chest. TECHNIQUE: Multidetector volumetric imaging was performed from the thoracic inlet through the pubic symphysis without intravenous contrast. Sagittal and coronal reformatted images were obtained on the technologist workstation. This CT examination was performed using dose optimization techniques as appropriate, variously including the following: *Automated exposure control *Adjustment of mA and/or kV according to patient size (this includes techniques or standardized protocols for targeted exams where dose is matched to indication/reason for exam; i.e. extremities or head) *Use of iterative reconstruction technique DLP: 1215 mGy-cm FINDINGS: CHEST: Lungs: There is a significantly worsened left sided pleural effusion when compared to the 12/30/2022 study with near total collapse of the left lung. New small contralateral right pleural effusion with mild basilar atelectasis and patchy groundglass airspace disease in the anterolateral right upper lobe new from the prior study. Central airways grossly unremarkable Mediastinum: Patient is now intubated. No bulky adenopathy seen Coronary Artery Calcification: Present Pericardium/Pleura: No significant effusion. No pleural mass or thickening. Chest Wall/Axilla: Unremarkable. ABDOMEN/PELVIS: Peritoneal Space:Small free fluid along the lower paracolic gutters Liver, Gallbladder, Biliary Tree: The non contrast liver is normal in size, shape, and attenuation. No focal hepatic lesion or biliary ductal dilatation is present. The gallbladder is unremarkable with no evidence of radiopaque gallstones, gallbladder wall thickening, or obvious pericholecystic inflammatory changes. Pancreas: Atrophic Spleen: Unremarkable. Adrenal Glands: Stable fullness to both adrenal glands. Kidneys and Ureters: The kidneys are normal in size, shape, and attenuation. No hydronephrosis or hydroureter. Multiple tiny punctate calcifications within both kidneys more likely vascular in nature. No perinephric stranding. Bladder: Decompressed with Finley catheter Gastrointestinal Tract: The small and large bowel are unremarkable. The appendix is unremarkable. Abdominal Wall: No significant hernia is appreciated. Lymphovascular Structures: No lymphadenopathy. The aorta is unremarkable.. Pelvic Viscera: Unremarkable. Osseus Structures: Degenerative and chronic appearing changes. CT/CT abdomen pelvis wo IV con IMPRESSION: Worsening left-sided pleural effusion with near total collapse of the left lung. New small right-sided pleural effusion with basilar atelectasis. Patchy groundglass airspace disease in the anterolateral right upper lobe is new from the prior study.
--- NOTE | ~2022-12-30 | XR_ITS ---
EXAMINATION: XR CHEST CLINICAL INFORMATION: Nasogastric tube placement COMPARISON: Chest x-ray performed earlier same date TECHNIQUE: Frontal view of the chest was obtained. FINDINGS: Weighted tip enteric tube terminates in the left upper quadrant, presumably within stomach. Loculated appearing left pleural effusion redemonstrated with accompanying atelectasis of much of the imaged left lung. Right lung and pleural space clear. XR/XR chest 1V IMPRESSION: Weighted tip enteric tube terminates in the left upper quadrant, presumably within the stomach.
--- NOTE | ~2022-12-30 | XR_ITS ---
EXAMINATION: XR CHEST CLINICAL INFORMATION: 2 placement COMPARISON: Chest 01/08/2023 10:26 AM TECHNIQUE: Frontal view of the chest was obtained. FINDINGS: The lungs are well-expanded with patchy density right lung base likely atelectasis or scarring. Rest lungs are clear. Heart size and pulmonary vascularity is normal. There are 2 left-sided chest tubes with left lateral chest wall pneumothorax, stable.. There is a small pneumothorax along the left lateral chest wall. A feeding tube is noted with its tip below the diaphragm in stomach. A longer right central venous catheter is noted at the cavoatrial junction.. Heart size is normal. No gross bony abnormality. XR/XR chest 1V IMPRESSION: Stable pneumothorax in spite of left 2 chest tubes. Feeding tube, right jugular central catheter are stable. There is right basilar atelectasis and/or scarring or effusion.
[2022-12-30 16:23] VITALS: BP 142/76; BP 98/59; PULSE 102; PULSE 94; RESP 16; TEMP 36.9; O2SAT 96; O2SAT 97; BMI 19.8
--- NOTE | 2022-12-30 16:29 | PC.NURSE ---
Pt arrived via EMS, reporting L flank/chest pain since recent d/c for pnu, pt reports he took his home morphine with no relief from 06/19 pain, reports he did take his antx he was d/c home on. denies n/v/d, denies fevers/chills, urinary symptoms
--- NOTE | 2022-12-30 16:53 | ED.CHESTPAIN ---
HPI - Chest Pain General Chief Complaint: Chest Pain Stated Complaint: PAIN W/BREATHING,RECENT H/O PNA PER EMS Time Seen by Provider: 12/30/22 16:25 Source: patient Mode of arrival: EMS Limitations: no limitations History of Present Illness HPI narrative: Patient comes to the emergency room complaining of left thoracic chest pain and worsening weakness. Patient states that on December 21, patient was diagnosed with pneumonia. Since then, he has had continuous pain in the left side of the thorax and pain is worsening. Patient states that he took antibiotics, completed the course 2 days ago. Patient denies any coughing, no chest pain or shortness of breath. No nausea vomiting or diarrhea, no fever chills. Patient denies flank pain, no UTI symptoms. Related Data Home Medications Medication Instructions Recorded Confirmed clonazepam 1 mg tablet 1 tab PO BEDTIME 04/21/21 02/12/22 gabapentin 600 mg tablet 1 tab PO TID 04/21/21 02/12/22 tramadol 50 mg tablet 1 tab PO DAILY 04/21/21 02/12/22 acetaminophen 500 mg tablet 1 tab PO BID PRN Pain (Scale Score 06/06/21 02/12/22 1-3) bictegravir 50 mg-emtricitabine 1 tab PO DAILY 06/06/21 02/12/22 200 mg-tenofovir alafenam 25 mg tablet (Biktarvy) amlodipine 5 mg tablet 1 tab PO DAILY 06/19/21 02/12/22 propranolol 120 mg capsule,24 1 cap PO DAILY 06/19/21 02/12/22 hr,extended release albuterol sulfate 90 mcg/actuation 2 puff PO Q4H PRN Wheezing 01/17/22 02/12/22 aerosol inhaler diphenhydramine HCl 25 mg tablet 2 tab PO BEDTIME PRN Insomnia 01/17/22 02/12/22 (Banophen) fluticasone propionate 110 1 puff inhalation BID 01/17/22 02/12/22 mcg/actuation HFA aerosol inhaler (Flovent HFA) albuterol sulfate 2.5 mg/3 mL 2.5 mg inhalation Q4H PRN 02/12/22 02/12/22 (0.083 %) solution for nebulization shortness of breath or wheezing food supplemt, lactose-reduced 1 ea PO TID 02/12/22 02/12/22 (Ensure oral liquid) mirtazapine 45 mg tablet 1 tab PO BEDTIME 02/12/22 02/12/22 pantoprazole 40 mg tablet,delayed 1 tab PO DAILY 02/12/22 02/12/22 release risperidone 2 mg tablet 1 tab PO BEDTIME 02/12/22 02/12/22 diphenhydramine HCl 25 mg tablet 25 mg PO BEDTIME PRN 02/27/22 (Benadryl Allergy) Previous Rx's Medication Instructions Recorded lidocaine 4 % topical patch 1 patch topical DAILY PRN chest 01/19/22 wall pain #10 ea diphenhydramine HCl 25 mg tablet 25 mg PO Q6H PRN Itching #120 tabs 02/15/22 (Allergy Relief (diphenhydramine)) docusate sodium 100 mg capsule 100 mg PO BID 30 days #60 caps 02/15/22 enoxaparin 40 mg/0.4 mL 40 mg (0.4 mL) subcut Q24H 42 days 02/15/22 subcutaneous syringe #16.8 mL oxycodone 10 mg tablet,crush 10 mg PO BID 7 days #14 tabs 02/15/22 resistant,extended release 12 hr (OxyContin) oxycodone 5 mg tablet 5 mg PO Q6H PRN Pain, Moderate 04/06/22 (Pain Scale 4-6 7 days #28 tabs ibuprofen 800 mg tablet 800 mg PO Q8H PRN for pain #90 tabs 11/25/22 cefuroxime axetil 500 mg tablet 500 mg PO BID #9 tabs 12/20/22 doxycycline hyclate 100 mg tablet 100 mg PO BID 5 days #10 tabs 12/20/22 celecoxib 200 mg capsule 200 mg PO BID #60 caps 12/22/22 Allergies Allergy/AdvReac Type Severity Reaction Status Date / Time Seasonal Allergies Allergy Intermediate Eye Verified 12/20/22 07:44 Drainage codeine Allergy Mild RASH Verified 12/20/22 07:44 [From Tylenol-Codeine #3] levofloxacin [From Levaquin] Allergy Mild Rash Verified 12/20/22 07:44 metoclopramide [From Reglan] Allergy Mild Rash Verified 12/20/22 07:44 acetaminophen Allergy Unknown Unknown Verified 12/20/22 07:44 [Tylenol-Codeine #3] ibuprofen [From Motrin] Allergy Unknown Reflux Verified 12/20/22 07:44 Penicillins [PENICILLINS] Allergy Unknown Rash Verified 12/20/22 07:44 tramadol [From Ultram] AdvReac Mild Nausea and Verified 12/20/22 07:44 Vomiting Review of Systems Review of Systems: Constitutional : No Weight loss, No Fever, No Chills, No Night Sweats, No Fatigue, No Malaise ENT/Mouth : No Hearing loss, No Ear Pain, No Nasal Congestion, No Sinus Pain, No Hoarseness, No sore throat, No Rhinorrhea, No Swallowing Difficulty Eyes: No Eye Pain, No Swelling, No Redness, No Foreign Body, No Discharge, No Vision Changes Cardiovascular : No Chest Pain, No SOB, No Dyspnea on Exertion, No Orthopnea, No Edema, No Palpitations Respiratory : No Cough, No Sputum, No Wheezing, No Smoke Exposure, No Dyspnea Gastrointestinal : No Nausea, No Vomiting, No Diarrhea, No Constipation, No abdominal Pain, No Hematochezia, No Melena Genitourinary : no irregular bleeding, No Dysuria, No Urinary Frequency, No Hematuria, No Urinary Incontinence, No Urgency, No Flank Pain, No Urinary Flow Changes, No Hesitancy Musculoskeletal : Pain on the left side of the ribcage, No joint pain, No Myalgias, No Joint Swelling Skin : No Skin Lesions, No rash Neuro : No Weakness, No Numbness, No Paresthesias, No Loss of Consciousness, No Dizziness, No Headache Psych : No Anxiety/Panic, No Depression, No SI/HI/AH/VH, No Social Issues, Heme/Lymph: No Bruising, No Bleeding,No Lymphadenopathy Endocrine : No Polyuria, No Polydipsia, No Temperature Intolerance [facility] Past Medical History Medical History Asthma Closed fracture of leg Depression Hemorrhoids Hepatitis C HIV (human immunodeficiency virus infection) Hypertension Kidney stones Pleuritic chest pain Pneumonia Substance abuse Surgical History H/O hemorrhoidectomy Social History Social History Household Members: Family Housing: Apartment Do you presently have visiting nurse or other home services: Yes ([employer]) Alcohol intake: never Patient Tobacco Use Status: Never used Tobacco Smoked in Last 30 Days: No Second Hand Smoke Exposure: No Use of substances other than those prescribed or required for medical reasons: No Advance Directives: Yes Advance Directives on File: Yes Advance Directives Date on File: 04/25/21 service: No Current occupational status: disabled Physical Exam Vital Signs: Vital Signs: Last Vital Signs Temp 98.0 F 12/30/22 19:35 Pulse 100 12/30/22 19:35 Resp 20 12/30/22 19:35 BP 115/72 12/30/22 19:35 Pulse Ox 95 12/30/22 19:35 O2 Del Method Room Air 12/30/22 19:35 BMI result Body Mass Index 19.8 Const: Other: Appearance: Alert. Oriented X3. No acute distress. Eyes: Pupils equal, round and reactive to light. ENT: Pharynx normal. Neck: Normal inspection. Neck supple. No lymph nodes noted. No crepitus CVS: Normal heart rate and rhythm. Pulses normal. Normal S1 and S2 Respiratory: No respiratory distress. Breath sounds normal. No Wheezing. No rales Musculoskeletal: Pain to palpation on the lateral aspect the left side of the chest, no deformity Abdomen: Soft and nontender. No rigidity. No distention. Skin: Skin warm and dry. Normal skin color. Normal skin turgor. Extremities: No lower extremity edema. No Lacerations. No Rash Neuro: Oriented X 3. No motor deficit. No sensory deficit. Moving all extremities. No slurred speech. CN 2 through 12 grossly intact Psych: calm, cooperative, normal affect Medications Administered Discontinued Medications Generic Name Dose Route Start Last Admin Trade Name Akira PRN Reason Stop Dose Admin Acetaminophen 975 mg 12/30/22 17:05 12/30/22 19:12 Acetaminophen 325 Mg Tablet PO 12/30/22 17:06 Not Given ONCE ONE Aspirin 324 mg 12/30/22 19:06 12/30/22 19:10 Aspirin 81 Mg Tab.Chew PO 12/30/22 19:07 324 mg ONCE ONE Administration Iohexol 100 ml 12/30/22 18:39 12/30/22 18:39 Iohexol 350 Mg/Ml 100 Ml Infus..Btl IV 12/30/22 18:40 65 ml ONCE ONE Administration Ketorolac Tromethamine 30 mg 12/30/22 17:42 12/30/22 17:45 Ketorolac Tromethamine 30 Mg/Ml Vial IVPUSH 12/30/22 17:43 30 mg ONCE ONE Administration Tramadol HCl 25 mg 12/30/22 17:07 12/30/22 17:11 Tramadol Hcl 50 Mg Tablet PO 12/30/22 17:08 25 mg ONCE ONE Administration Medical Decision Making Medical Decision Making [facility] Narrative: -patient's white blood cell count increased from his previous visit, now 14.5. Patient did not take any steroids. Lactic acid 0.9. Initially, blood pressure 98/59, improved with IV fluids, 115/72, no episodes of hypotension, sepsis not suspected. -CT scan of the chest interpreted by me: Infiltrate left lower lobe, possible loculation, small pleural effusion -I discussed the radiology report on the patient with Dr. Adorno, patient being admitted. Since the patient has left lower lobe pneumonia, small left pleural effusion, likely the source of the pain of the patient. In the inferior segment of the lingula, there is a low-attenuation suggestive of cystic changes versus necrosis -patient has not had any oxygen desaturations. Differential Diagnosis Differential Diagnoses: The differential diagnosis associated with the presentation includes (Pneumonia, pleural effusion, malignancy) Admission/Observation Consideration of admission/observation: Escalation of care including admission/observation considered Consult Healthcare Provider Management of the patient was discussed with: Hospitalist Lab Data [facility] Lab Attestation statement: I reviewed the patient's lab results. 12/30/22 17:04 12/30/22 17:04 Labs: Lab Results 12/30/22 12/30/22 12/30/22 Range/Units 16:58 17:03 17:04 WBC 14.5 H (4.8-10.8) X10*3/uL RBC 4.40 L (4.60-5.80) X10*6/uL Hgb 13.0 L (14.0-18.0) g/dl Hct 39.3 L (42.0-52.0) % MCV 89.3 (80.0-98.0) fL MCH 29.5 (27.0-33.0) pg MCHC 33.1 (31.0-36.0) g/dl RDW 15.3 (11.0-16.0) % Plt Count 302 (160-400) X10*3/uL MPV 10.6 (9.4-12.4) fL Immature Gran % (Auto) 0.8 H (0.0-0.4) % Neut % (Auto) 85.0 H (45-73) % Lymph % (Auto) 6.0 L (20-40) % [place] % (Auto) 7.6 (2-11) % Eos % (Auto) 0.4 (0-4) % Baso % (Auto) 0.2 (0-2) % Lymph # (Auto) 0.9 L (1.2-4.9) X10*3/uL [place] # (Auto) 1.1 (0.1-1.2) X10*3/uL Eos # (Auto) 0.1 (0.0-0.4) X10*3/uL Baso # (Auto) 0.0 (0.0-0.2) X10*3/uL Abs Immat Gran (auto) 0.11 H (0.00-0.03) X10*3/uL Absolute Neuts (auto) 12.3 H (2.0-8.3) x10*3/uL Absolute Nucleated RBC 0.000 (0.0-0.012) X10*3/uL Nucleated RBC % (auto) 0.0 (0.0-0.2) /100WBC PT (10.0-13.1) SEC INR (0.9-1.1) Sodium (135-145) mmol/L Potassium (3.3-5.1) mmol/L Chloride (96-108) mmol/L Carbon Dioxide (22-29) mmol/L Anion Gap (12-20) BUN (9-16) mg/dL Creatinine (0.5-1.4) mg/dL Estim Creat Clear Calc Estimated GFR Random Glucose (60-115) mg/dL Lactic Acid 0.9 (0.5-2.0) mmol/L Calcium (8.4-10.2) mg/dL Total Bilirubin (0.0-1.0) mg/dL Direct Bilirubin (0.0-0.5) mg/dL AST (5-37) U/L ALT (0-40) U/L Alkaline Phosphatase (39-117) U/L Troponin I High Sens (<3.5-35.0) ng/L Total Protein (6.5-8.0) g/dL Albumin (3.5-5.0) g/dL COVID-19 (TAMMIE) Negative (Negative) COVID-19 Clin Com See Note 12/30/22 12/30/22 12/30/22 Range/Units 17:04 17:04 17:04 WBC (4.8-10.8) X10*3/uL RBC (4.60-5.80) X10*6/uL Hgb (14.0-18.0) g/dl Hct (42.0-52.0) % MCV (80.0-98.0) fL MCH (27.0-33.0) pg MCHC (31.0-36.0) g/dl RDW (11.0-16.0) % Plt Count (160-400) X10*3/uL MPV (9.4-12.4) fL Immature Gran % (Auto) (0.0-0.4) % Neut % (Auto) (45-73) % Lymph % (Auto) (20-40) % [place] % (Auto) (2-11) % Eos % (Auto) (0-4) % Baso % (Auto) (0-2) % Lymph # (Auto) (1.2-4.9) X10*3/uL [place] # (Auto) (0.1-1.2) X10*3/uL Eos # (Auto) (0.0-0.4) X10*3/uL Baso # (Auto) (0.0-0.2) X10*3/uL Abs Immat Gran (auto) (0.00-0.03) X10*3/uL Absolute Neuts (auto) (2.0-8.3) x10*3/uL Absolute Nucleated RBC (0.0-0.012) X10*3/uL Nucleated RBC % (auto) (0.0-0.2) /100WBC PT 14.6 H (10.0-13.1) SEC INR 1.3 H (0.9-1.1) Sodium 141 (135-145) mmol/L Potassium 4.0 (3.3-5.1) mmol/L Chloride 106 (96-108) mmol/L Carbon Dioxide 26 (22-29) mmol/L Anion Gap 13 (12-20) BUN 12 (9-16) mg/dL Creatinine 1.05 (0.5-1.4) mg/dL Estim Creat Clear Calc 62.2 Estimated GFR > 60 Random Glucose 107 (60-115) mg/dL Lactic Acid (0.5-2.0) mmol/L Calcium 9.0 (8.4-10.2) mg/dL Total Bilirubin 0.5 (0.0-1.0) mg/dL Direct Bilirubin 0.2 (0.0-0.5) mg/dL AST 11 (5-37) U/L ALT 12 (0-40) U/L Alkaline Phosphatase 65 (39-117) U/L Troponin I High Sens < 2.7 (<3.5-35.0) ng/L Total Protein 6.8 (6.5-8.0) g/dL Albumin 3.8 (3.5-5.0) g/dL COVID-19 (TAMMIE) (Negative) COVID-19 Clin Com Independent Interpretation I performed an independent interpretation of an: EKG (My interpretation: Up normal sinus rhythm, heart rate 92, segment depression or elevation, no T-wave inversion, QTC 442) Radiology Impression Discussion of test interpretation with radiology: I have reviewed the radiologist's reading. Radiologist Impression: LUNGS: There is interval decrease in size in the bilobed cavitary lesion in the lateral segment of the lingula. Superior component measures 2.2 x 2.3 cm compared to 3 cm and more inferior component measures 2 x 3 cm compared to 2 x 4.5 cm on previous exam. This has a low-attenuation center suggestive of a cystic change or necrosis. There is increasing adjacent left lower lobe atelectasis or small infiltrate and volume loss. The previously identified 1 x 1.6 cm nodule in the posterior costophrenic sulcus of the right lower lobe appears decreased in size measuring 8 mm on current exam. There is adjacent right lower lobe subsegmental atelectasis. MEDIASTINUM: The mediastinum is normal. There are no enlarged hilar or mediastinal lymph nodes. Heart size is normal. No coronary artery calcification. No pericardial effusion. PLEURA: There is a small left pleural effusion increased from recent exam. There is no right pleural effusion. There is no pneumothorax. AXILLA: No lymphadenopathy.? UPPER ABDOMEN: The liver is slightly low in attenuation suggestive of fatty infiltration. There are small bilateral renal stones.? OSSEOUS STRUCTURES: Multiple mild midthoracic vertebral body compression fractures similar to previous exams. CT/CT chest w IV con IMPRESSION: Interval decrease in size in the bilobed lesion in the inferior segment of the lingula. This has a low-attenuation center suggestive of cystic change or necrosis. There is increasing adjacent left lower lobe atelectasis/small infiltrate. There is an increasing small left pleural effusion. Interval decrease in size in nodule in the right lower lobe. Minimal right lower lobe atelectasis. Given change in short period of time infectious or inflammatory process is favored. ? Fleischner guidelines were followed. Critical Care Time Critical Care Time Critical Care Time: Yes Total Critical Care Time: 60 Attestation: I have personally provided critical care time. Time includes review of lab data, radiology results, discussion with consultants, and monitoring for potential decompensation. Intervention performed as documented. Discharge Plan Discharge Clinical Impression: Pneumonia Patient Disposition: Home, Self-Care Prescriptions: No Action oxycodone 5 mg tablet 5 mg PO Q6H PRN (Reason: Pain, Moderate (Pain Scale 4-6) 7 Days Qty: 28 0RF Rx Instructions: Partial Fill upon patient request. ibuprofen 800 mg tablet 800 mg PO Q8H PRN (Reason: for pain) Qty: 90 3RF celecoxib 200 mg capsule 200 mg PO BID Qty: 60 3RF gabapentin 600 mg tablet 1 tab PO TID clonazepam 1 mg tablet 1 tab PO BEDTIME tramadol 50 mg tablet 1 tab PO DAILY acetaminophen 500 mg tablet 1 tab PO BID PRN (Reason: Pain (Scale Score 1-3)) Biktarvy 50-200-25 mg tablet 1 tab PO DAILY amlodipine 5 mg tablet 1 tab PO DAILY propranolol 120 mg capsule,extended release 24 hr 1 cap PO DAILY diphenhydramine HCl [Banophen] 25 mg tablet 2 tab PO BEDTIME PRN (Reason: Insomnia) fluticasone propionate [Flovent HFA] 110 mcg/actuation HFA aerosol inhaler 1 puff inhalation BID albuterol sulfate 90 mcg/actuation HFA aerosol inhaler 2 puff PO Q4H PRN (Reason: Wheezing) lidocaine 4 % adhesive patch,medicated 1 patch topical DAILY PRN (Reason: chest wall pain) Qty: 10 0RF risperidone 2 mg tablet 1 tab PO BEDTIME pantoprazole 40 mg tablet,delayed release (DR/EC) 1 tab PO DAILY mirtazapine 45 mg tablet 1 tab PO BEDTIME albuterol sulfate 2.5 mg /3 mL (0.083 %) solution for nebulization 2.5 mg inhalation Q4H PRN (Reason: shortness of breath or wheezing) Ensure Liquid 1 ea PO TID diphenhydramine HCl [Allergy Relief(diphenhydramin)] 25 mg Tablet 25 mg PO Q6H PRN (Reason: Itching) Qty: 120 0RF enoxaparin 40 mg/0.4 mL Syringe 40 mg subcut Q24H 42 Days Qty: 16.8 0RF oxycodone [OxyContin] 10 mg Tablet,Oral Only,Ext.Rel.12 Hr 10 mg PO BID 7 Days Qty: 14 0RF Rx Instructions: Partial Fill upon patient request. docusate sodium 100 mg Capsule 100 mg PO BID 30 Days Qty: 60 0RF cefuroxime axetil 500 mg tablet 500 mg PO BID Qty: 9 0RF doxycycline hyclate 100 mg tablet 100 mg PO BID 5 Days Qty: 10 0RF diphenhydramine HCl [Benadryl Allergy] 25 mg tablet 25 mg PO BEDTIME PRN
[2022-12-30 17:10] LABS: MANUAL DIFF FLAG NO
[2022-12-30] MEDS: traMADoL HCL 50 MG TABLET 25 MG PO (17:11)
[2022-12-30 17:19] LABS: COVID-19 Test Negative (Negative); IDNOW Serial# 08D9AD1C
[2022-12-30 17:25] LABS: Basophils Percent Auto 0.2 % (0-2); Eosinophils Absolute Auto 0.1 X10*3/uL (0.0-0.4); Eosinophils Percent Auto 0.4 % (0-4); Hematocrit 39.3 % (42.0-52.0); Imm Gran Abs Auto 0.11 X10*3/uL (0.00-0.03); Imm Gran Pct Auto 0.8 % (0.0-0.4); Lymphocytes Absolute Auto 0.9 X10*3/uL (1.2-4.9); Mean Corpuscular HGB Conc 33.1 g/dl (31.0-36.0); Mean Corpuscular Hemoglobin 29.5 pg (27.0-33.0); Mean Corpuscular Volume 89.3 fL (80.0-98.0); Mean Platelet Volume 10.6 fL (9.4-12.4); Monocytes Absolute Auto 1.1 X10*3/uL (0.1-1.2); Monocytes Percent Auto 7.6 % (2-11); Neutrophils Absolute Auto 12.3 x10*3/uL (2.0-8.3); Platelet Count 302 X10*3/uL (160-400); Red Cell Distribution Width 15.3 % (11.0-16.0); White Blood Count 14.5 X10*3/uL (4.8-10.8)
[2022-12-30 17:31] LABS: Lactic Acid 0.9 mmol/L (0.5-2.0)
[2022-12-30 17:36] VITALS: BP 144/93; PULSE 95; RESP 20; TEMP 36.6; O2SAT 97
[2022-12-30 17:36] LABS: Alanine Aminotransferase 12 U/L (0-40); Albumin Level 3.8 g/dL (3.5-5.0); Alkaline Phosphatase 65 U/L (39-117); Anion Gap 13 (12-20); Aspartate Amino Transferase 11 U/L (5-37); Bilirubin Direct 0.2 mg/dL (0.0-0.5); Bilirubin Total 0.5 mg/dL (0.0-1.0); Blood Urea Nitrogen 12 mg/dL (9-16); Carbon Dioxide 26 mmol/L (22-29); Chloride 106 mmol/L (96-108); Creatinine Clr Calc Pharmacy 62.2; Estimated Glomerular Filt Rate > 60; Glucose Random 107 mg/dL (60-115); Sodium 141 mmol/L (135-145); Total Protein 6.8 g/dL (6.5-8.0)
--- NOTE | 2022-12-30 17:36 | MHC.EDTECH ---
pt vitals sign taken ,blood culture drawn and sent to lab ,pt was reposition and boosted up in bed .
[2022-12-30 17:43] LABS: Troponin-I High Sensitivity < 2.7 ng/L (<3.5-35.0)
[2022-12-30] MEDS: Ketorolac Tromethamine 30 MG/ML VIAL IVPUSH (17:45)
[2022-12-30] MEDS: iohexoL 350 MG/ML 100 ML INFUS..BTL IV (18:39)
--- NOTE | 2022-12-30 19:00 | ECG_ITS ---
Test Reason : CHEST PAIN Blood Pressure : / mmHG Vent. Rate : 099 BPM Atrial Rate : 099 BPM P-R Int : 162 ms QRS Dur : 106 ms QT Int : 352 ms P-R-T Axes : 069 053 049 degrees QTc Int : 451 ms Normal sinus rhythm Incomplete right bundle branch block Borderline ECG When compared with ECG of 30-DEC-2022 16:27, No significant change was found Referred By: Sheryl Duarte Electronically Signed By:TALIB LÓPEZ
[2022-12-30] MEDS: Aspirin 81 MG TAB.CHEW 324 MG PO (19:10)
[2022-12-30 19:14] VITALS: BP 135/85; PULSE 102; RESP 23; O2SAT 95
--- NOTE | 2022-12-30 19:15 | PC.NURSE ---
Patient complains of chest pain.EKG obtained and provided notified. Administered Aspirin as per MAR
[2022-12-30 19:35] VITALS: BP 115/72; PULSE 100; RESP 20; TEMP 36.7; O2SAT 95
[2022-12-30 20:48] LABS: INTERNATIONAL NORM RATIO 1.3 (0.9-1.1); Prothrombin Time 14.6 SEC (10.0-13.1)
[2022-12-30] MEDS: Morphine Sulfate 2 MG/ML CARTRIDGE IVPUSH (21:05)
[2022-12-30] MEDS: Piperacillin Sodium/Tazobactam 3.375 GM in 0.9 % Sodium Chloride 50 ML IV (21:06)
[2022-12-30] MEDS: 0.9 % Sodium Chloride 1,000 ML 999 ML IVCONT (21:07)
--- NOTE | 2022-12-30 21:36 | PM.IMHP ---
History of Present Illness Date of Service: 12/30/22 Attending physician on admission: Shawn Adorno Chief Complaint: Left-sided thoracic pain Pt is a 57-year-old male with a PMH significant for?HIV, anxiety, depression, hx of hepatitis C, hx of lung abscess in 2020, and mild persistent asthma who presents to the ED with?left-sided thoracic chest pain and worsening weakness. Patient originally presented to the ED 9 days prior on 12/21/2022 and was diagnosed with pneumonia and discharged on home antibiotics of cefuroxime and doxycycline. Patient completed his course of antibiotics 2 days ago with little relief of his symptoms, and has since had continual sided chest pain, worse with inspiration and movement. Patient denies cough, but has had shortness of breath and lightheadedness and dizziness. States he has also been having decreased appetite with associated decreased intake of both fluids and solids. Pt notes he has also lost weight recently and been weaker than usual. Patient denies night sweats. In the ED patient was afebrile but tachycardic up to 102 and tachypneic up to 23. Labs were significant for leukocytosis of 14.5, stable normocytic anemia of 13.0/39.3, lactic acid WNL in 0.9, negative troponin, CD4 count on 11/29/2022 of 377. Patient tested negative for COVID. CT?of chest showed an interval decrease in the size of the bilobed lesion in the inferior segment of the lingula, with a low-attenuation center suggestive of cystic change or necrosis. Also showed an increasing adjacent left lower lobe atelectasis/small infiltrate and in increasing small left pleural effusion. EKG demonstrated normal sinus rhythm without evidence of ST elevations or depressions. Pt was treated with tramadol, ketorolac, morphine, IVF, Zosyn. Pt will be admitted to the hospital for treatment and further evaluation of pneumonia that has failed outpatient therapy. Review of Systems Review of Systems: Left-sided thoracic chest pain, worse with inspiration and movement Anorexia Weight loss Weakness Lightheadedness and dizziness Shortness of breath Yes all other systems are reviewed and are negative [facility] Medical History Asthma Closed fracture of leg Depression Hemorrhoids Hepatitis C HIV (human immunodeficiency virus infection) Hypertension Kidney stones Pleuritic chest pain Pneumonia Substance abuse Surgical History H/O hemorrhoidectomy Social History Household Members: Family Housing: Apartment Do you presently have visiting nurse or other home services: Yes ([employer]) Alcohol intake: never Patient Tobacco Use Status: Never used Tobacco Smoked in Last 30 Days: No Second Hand Smoke Exposure: No Use of substances other than those prescribed or required for medical reasons: No Advance Directives: Yes Advance Directives on File: Yes Advance Directives Date on File: 04/25/21 service: No Current occupational status: disabled Meds Allergies Allergy/AdvReac Type Severity Reaction Status Date / Time Seasonal Allergies Allergy Intermediate Eye Verified 12/20/22 07:44 Drainage codeine Allergy Mild RASH Verified 12/20/22 07:44 [From Tylenol-Codeine #3] levofloxacin [From Levaquin] Allergy Mild Rash Verified 12/20/22 07:44 metoclopramide [From Reglan] Allergy Mild Rash Verified 12/20/22 07:44 acetaminophen Allergy Unknown Unknown Verified 12/20/22 07:44 [Tylenol-Codeine #3] ibuprofen [From Motrin] Allergy Unknown Reflux Verified 12/20/22 07:44 Penicillins [PENICILLINS] Allergy Unknown Rash Verified 12/20/22 07:44 tramadol [From Ultram] AdvReac Mild Nausea and Verified 12/20/22 07:44 Vomiting Home Medications Medication Instructions Recorded Confirmed Last Taken Type amlodipine 5 mg tablet 5 mg PO DAILY 12/30/22 12/30/22 Unknown History bictegravir 50 mg-emtricitabine 1 tab PO DAILY 12/30/22 12/30/22 Unknown History 200 mg-tenofovir alafenam 25 mg tablet (Biktarvy) celecoxib 200 mg capsule 200 mg PO BID 12/30/22 12/30/22 Unknown History clonazepam 1 mg tablet 1 mg PO DAILY 12/30/22 12/30/22 Unknown History fluticasone propionate 110 1 puff inhalation BID 12/30/22 12/30/22 Unknown History mcg/actuation HFA aerosol inhaler (Flovent HFA) gabapentin 600 mg tablet 600 mg PO TID 12/30/22 12/30/22 Unknown History ibuprofen 800 mg tablet 800 mg PO Q8H PRN pain 12/30/22 12/30/22 Unknown History latanoprost 0.005 % eye drops 1 drp ophthalmic (eye) DAILY 12/30/22 12/30/22 Unknown History mirtazapine 30 mg tablet 30 mg PO BEDTIME 12/30/22 12/30/22 Unknown History pantoprazole 40 mg tablet,delayed 40 mg PO DAILY 12/30/22 12/30/22 Unknown History release propranolol 120 mg capsule,24 120 mg PO DAILY 12/30/22 12/30/22 Unknown History hr,extended release risperidone 2 mg tablet 2 mg PO BEDTIME 12/30/22 12/30/22 Unknown History tramadol 50 mg tablet 50 mg PO DAILY PRN Pain 12/30/22 12/30/22 Unknown History Physical Exam Vital Signs and Narrative: Vital Signs: Last Vital Signs Temp 98.0 F 12/30/22 19:35 Pulse 100 12/30/22 19:35 Resp 20 12/30/22 19:35 BP 115/72 12/30/22 19:35 Pulse Ox 95 12/30/22 19:35 O2 Del Method Room Air 12/30/22 19:35 BMI result Body Mass Index 19.8 Constitutional: Alert, looking uncomfortable. Patient looking frail, cachectic. Mental Status: Oriented to person, place and time. Eyes: Pupils are equal, round, and reactive to light. Ear, Nose, and Throat: Oropharynx clear, mucous membranes dry. Ears and nose without deformities. Trachea midline. Respiratory: Clear to auscultation bilaterally with diminished breath sounds in the lower lung bonilla. No wheezing, rales, or rhonchi. Cardiovascular: S1, S2 tachycardic. No murmurs, rubs, or gallops. Gastrointestinal: Abdomen soft, non-tender, non-distended. Normal bowel sounds. Neurologic: Cranial nerves II-XII are grossly intact bilaterally. No focal neurological deficits. Moves all extremities spontaneously. Skin: No rashes or lesions noted. Musculoskeletal: Global weakness noted: strength 2/5. Extremities: No edema. Results Labs 12/30/22 17:04 12/30/22 17:04 Labs: Laboratory Results - last 24 hr 12/30/22 12/30/22 12/30/22 16:58 17:03 17:04 MCV 89.3 MCH 29.5 MCHC 33.1 RDW 15.3 Plt Count 302 MPV 10.6 Immature Gran % (Auto) 0.8 H Neut % (Auto) 85.0 H Lymph % (Auto) 6.0 L [place] % (Auto) 7.6 Eos % (Auto) 0.4 Baso % (Auto) 0.2 Lymph # (Auto) 0.9 L [place] # (Auto) 1.1 Eos # (Auto) 0.1 Baso # (Auto) 0.0 Abs Immat Gran (auto) 0.11 H Absolute Neuts (auto) 12.3 H Absolute Nucleated RBC 0.000 Nucleated RBC % (auto) 0.0 PT INR Anion Gap Estim Creat Clear Calc Estimated GFR Random Glucose Lactic Acid 0.9 Calcium Total Bilirubin Direct Bilirubin AST ALT Alkaline Phosphatase Troponin I High Sens Total Protein Albumin COVID-19 (TAMMIE) Negative COVID-19 Clin Com See Note 12/30/22 12/30/22 12/30/22 17:04 17:04 17:04 MCV MCH MCHC RDW Plt Count MPV Immature Gran % (Auto) Neut % (Auto) Lymph % (Auto) [place] % (Auto) Eos % (Auto) Baso % (Auto) Lymph # (Auto) [place] # (Auto) Eos # (Auto) Baso # (Auto) Abs Immat Gran (auto) Absolute Neuts (auto) Absolute Nucleated RBC Nucleated RBC % (auto) PT 14.6 H INR 1.3 H Anion Gap 13 Estim Creat Clear Calc 62.2 Estimated GFR > 60 Random Glucose 107 Lactic Acid Calcium 9.0 Total Bilirubin 0.5 Direct Bilirubin 0.2 AST 11 ALT 12 Alkaline Phosphatase 65 Troponin I High Sens < 2.7 Total Protein 6.8 Albumin 3.8 COVID-19 (TAMMIE) COVID-19 Clin Com Imaging Radiologist's Impressions: Impressions Chest CT 12/30/22 18:47 IMPRESSION: Interval decrease in size in the bilobed lesion in the inferior segment of the lingula. This has a low-attenuation center suggestive of cystic change or necrosis. There is increasing adjacent left lower lobe atelectasis/small infiltrate. There is an increasing small left pleural effusion. Interval decrease in size in nodule in the right lower lobe. Minimal right lower lobe atelectasis. Given change in short period of time infectious or inflammatory process is favored. Fleischner guidelines were followed. Assessment and Plan (1) Pneumonia: Status: Acute Plan Pt is a 57-year-old male with a PMH significant for?HIV, anxiety, depression, hx of hepatitis C, hx of lung abscess in 2020, and mild intermittent asthma who presents to the ED with?left-sided thoracic chest pain and worsening weakness. Pt will be admitted to the hospital for treatment and further evaluation of pneumonia that has failed outpatient therapy. Community-acquired pneumonia Patient 1st diagnosed with pneumonia on 12/11/2022 Failed outpatient therapy on cefuroxime and doxycycline CT?of chest suggestive of possible cystic change or necrosis, and increasing adjacent left lower lobe atelectasis/small infiltrate and in increasing small left pleural effusion Will start on IV ABX: Vanco and Zosyn, started 12/30/2022 ID consult Pulmonology consult Follow cultures Sepsis Patient meets sepsis criteria: Pneumonia, elevated WBC, ,tachycardia tachypnea, lactic acid WNL Patient will be receiving IV fluids and broad-spectrum antibiotics Moderate protein calorie malnutrition Patient cachectic, globally weak, says he has had decreased p.o. intake of both fluids and solids, recent weight loss Nutrition consult HTN Continue amlodipine Mild intermittent asthma Not in acute exacerbation Continue home inhalers HIV Latest CD4 count on 11/29/2022 was 377 Continue home Biktarvy Peripheral neuropathy Continue get Mood disorder Continue clonazepam, mirtazapine, and risperidone Full Code Attending:?Dr. Adorno DVT Prophylaxis: Lovenox Pt will require a hospitalization of at least two nights for treatment of community-acquired?pneumonia that has failed outpatient therapy with IV antibiotics. Time Spent With Patient Time: Total time managing care of this patient today ____ minutes. Quality Stroke Does the patient have a stroke diagnosis?: No VTE Prior VTE?: No VTE Risk Level:: Medical - moderate - high VTE Device Contraindication: Treatment Not Indicated VTE Drug Contraindication: N/A - Med Ordered
[2022-12-30 22:00] VITALS: BP 118/70; PULSE 94; RESP 20; TEMP 36.7; O2SAT 97
[2022-12-30] MEDS: vancomycin HCL 1,500 MG in 0.9 % Sodium Chloride 500 ML 333.33 MG IV (23:21)
[2022-12-30] MEDS: risperiDONE 2 MG TABLET PO (23:22)
[2022-12-30] MEDS: Gabapentin 600 MG TABLET PO (23:22)
[2022-12-30] MEDS: Enoxaparin Sodium 40 MG/0.4 ML SYRINGE SUBCUT (23:22)
[2022-12-30] MEDS: Lactated Ringers 1,000 ML 100 ML IVCONT (23:43)
[2022-12-30 23:53] VITALS: BP 137/84; PULSE 98; RESP 20; TEMP 36.8; O2SAT 94
[2022-12-31] VITALS (11 sets, daily range): BP systolic 97–132; BP diastolic 57–79; PULSE 74–103; RESP 16–22; TEMP 36.7–37.9; O2SAT 88–96; BMI 20.3
[2022-12-31] MEDS: Morphine Sulfate 2 MG/ML CARTRIDGE IVPUSH ×4 (00:18→17:19)
[2022-12-31] MEDS: Mirtazapine 30 MG TABLET PO (00:19)
--- NOTE | 2022-12-31 02:10 | PC.NURSE ---
This Nurse made two attempts to contact Med-surg unit nurse to provide nurse to nurse report. No answer to phone calls.
--- NOTE | 2022-12-31 02:17 | PC.NURSE ---
Nurse to nurse report given to Leilani on Med-Surg Unit.
[2022-12-31] MEDS: Piperacillin Sodium/Tazobactam 4.5 GM in 0.9 % Sodium Chloride 100 ML IV ×4 (03:35→20:35)
--- NOTE | 2022-12-31 05:20 | PC.NURSE ---
Pt admitted to unit around 0300 from ED. Pt very weak, 2 assist from stretcher to bed. Pt had not voided since coming to the hospital. Bladder scan obtained, 700. This nurse put urinal in place and pt voided 450. Dr Adorno notified-no new orders. IV antibiotics and IV fluids as ordered. Did clarify with Dr Adorno that it was ok to given Zosyn with patients PCN allergy. Pt given Morphine around 03:26 with good relief. Call jansen and urinal within reach. Will continue to monitor.
[2022-12-31 06:23] LABS: Hemoglobin 13.5 g/dl (14.0-18.0); Mean Corpuscular HGB Conc 32.1 g/dl (31.0-36.0); Mean Corpuscular Hemoglobin 29.5 pg (27.0-33.0); Mean Corpuscular Volume 91.7 fL (80.0-98.0); Mean Platelet Volume 11.2 fL (9.4-12.4); Platelet Count 270 X10*3/uL (160-400); Red Blood Count 4.58 X10*6/uL (4.60-5.80); Red Cell Distribution Width 15.7 % (11.0-16.0); White Blood Count 27.5 X10*3/uL (4.8-10.8)
[2022-12-31] MEDS: Omeprazole 20 MG CAPSULE.DR PO (06:29)
--- NOTE | 2022-12-31 07:45 | PHA.PROG ---
Admission Date/Time: December 30, 2022 22:50 Indication: RESPIRATORY INFECTION Weight in k kg Adjusted body weight in K.26 Mobile body weight in K.1 Obesity Dosing Indication % IBW: 20.4 Serum Creatinine - Last 168 Hours 12/30/22 17:04 Creatinine 1.05 Estimated CrCl and GFR - Last 168 Hours 12/30/22 17:04 Estim Creat Clear Calc 62.2 Estimated GFR > 60 Vancomycin Loading Dose: 1500MG Current Vancomycin Dosing Regimen: 750 MG Q12 Vancomycin Monitoring using AUC goal of 400 - 600 range with trough as surrogate marker: EXPECT AUC OF 455 AFTER DOSE 3 Date and Time for next Vancomycin Level to be drawn: TROUGH SCHEDULED FOR 01/01/23 @0900 BEFORE 4TH DOSE Pharmacist Comments on Vancomycin Plan: PT RENAL FUNCTION IS GOOD AND HE RECIEVED 1500 MG LOAD LAST NIGHT. ORDERS ENTERED FOR 750 Q12 DOSING, TROUGH, AND DAILY SCR FOR MONITORING. Vancomycin dosing will take advantage of [employer] as a clinical decision support tool that uses Bayesian modeling to calculate individual patient's pharmacokinetic parameters and forecast the patient's drug concentration time course with the target goal AUC 24 range of 400 - 600 mg/L/hr.
--- NOTE | 2022-12-31 08:42 | HO.PM.IMPN ---
Subjective Subjective Date of Service: 12/31/22 Interval History: Pneumonia Review of Systems Patient still feels generalized weak, denies any shortness of breath but has some pleurisy Denies any cough or phlegm Physical Exam Vital Signs: Vital Signs: Last Vital Signs Temp 98.8 F 12/31/22 07:32 Pulse 97 12/31/22 07:32 Resp 18 12/31/22 07:32 BP 101/59 L 12/31/22 07:32 Pulse Ox 94 12/31/22 07:32 O2 Del Method Room Air 12/31/22 07:32 BMI result Body Mass Index 20.3 Appearance: Alert.? Oriented X3.?generalised weak. cvs: rrr, [id number]. res: clear to auscultation ,no rhonchii or wheezing abd: no rebound or guarding ,nt, bs present. ext pulses present , no cyanosis . neuro: axo3 , nonfocal. Objective Data Active Medications Bictegravir/Emtricitabine/Tenofovir (Bictegrav/Emtricit/Tenofov Ala Tablet) 1 tab PO DAILY [facility] Celecoxib (Celecoxib 200 Mg Capsule) 200 mg PO BID [facility] Clonazepam (Clonazepam 1 Mg Tablet) 1 mg PO DAILY [facility] Docusate Sodium (Docusate Sodium 100 Mg Capsule) 100 mg PO DAILY PRN PRN Reason: Constipation Enoxaparin Sodium (Enoxaparin Sodium 40 Mg/0.4 Ml Syringe) 40 mg SUBCUT Q24H [facility] Last Admin: 12/30/22 23:22 Dose: 40 mg Documented By: MACARIO Fluticasone Propionate (Fluticasone Propionate 100 Mcg Blst.W.Dev) 1 puff INHALE RBID [facility] Last Admin: 12/31/22 07:55 Dose: Not Given Documented By: HUSSEIN Non-Admin Reason: med not avail/pharm called Gabapentin (Gabapentin 600 Mg Tablet) 600 mg PO TID [facility] Last Admin: 12/30/22 23:22 Dose: 600 mg Documented By: MACARIO Lactated Ringer's (Lr) 1,000 mls @ 100 mls/hr IVCONT .Q10H [facility] Last Admin: 12/30/22 23:43 Dose: 100 mls/hr Documented By: MACARIO Piperacillin Sod/Tazobactam (Sod 4.5 gm/ Sodium Chloride) 100 mls @ 200 mls/hr IV Q6H [facility] Last Infusion: 12/31/22 04:05 Dose: 0 mls/hr Documented By: QUEENIE Vancomycin HCl 750 mg/ Sodium (Chloride) 265 mls @ 265 mls/hr IV Q12H [facility] Ibuprofen (Ibuprofen 800 Mg Tablet) 800 mg PO Q8H PRN PRN Reason: Pain, Mild (Pain Scale 1-3) Latanoprost (Latanoprost 0.005 % Ophth Carol 2.5 Ml Drops) 1 drop EYE-BOTH DAILY [facility] Lidocaine (Lidocaine 4 % Patch Adh..Patch) 1 patch TRANSDERMA DAILY [facility]; Protocol Mirtazapine (Mirtazapine 30 Mg Tablet) 30 mg PO BEDTIME [facility] Last Admin: 12/31/22 00:19 Dose: 30 mg Documented By: MACARIO Morphine Sulfate (Morphine Sulfate 2 Mg/Ml Cartridge) 2 mg IVPUSH Q3H PRN; Protocol PRN Reason: Pain, Severe (Pain Scale 7-10) Last Admin: 12/31/22 03:25 Dose: 2 mg Documented By: QUEENIE Omeprazole (Omeprazole 20 Mg Capsule.Dr) 20 mg PO BID [facility] Ondansetron HCl (Ondansetron Hcl 4 Mg/2 Ml Vial) 4 mg IVPUSH Q8H PRN PRN Reason: Nausea and Vomiting Pharmacy Consult (Consult Rx Vancomycin Dosing) 1 each MISCELLANE DAILY PRN PRN Reason: Consult order Propranolol HCl (Propranolol Hcl La 60 Mg Cap.Sa.24h) 120 mg PO DAILY [facility]; Protocol Risperidone (Risperidone 2 Mg Tablet) 2 mg PO BEDTIME [facility] Last Admin: 12/30/22 23:22 Dose: 2 mg Documented By: MACARIO Sodium Chloride (0.9 % Sodium Chloride Flush 3 Ml Syringe) 3 ml IVFLUSH QSHIFT [facility] Last Admin: 12/31/22 00:25 Dose: Not Given Documented By: MACARIO Non-Admin Reason: IV Running Tramadol HCl (Tramadol Hcl 50 Mg Tablet) 50 mg PO DAILY PRN PRN Reason: Pain, Moderate (Pain Scale 4-6 Labs 12/31/22 05:28 12/30/22 17:04 Labs: Laboratory Results - last 24 hr 12/30/22 12/30/22 12/30/22 16:58 17:03 17:04 MCV 89.3 MCH 29.5 MCHC 33.1 RDW 15.3 Plt Count 302 MPV 10.6 Immature Gran % (Auto) 0.8 H Neut % (Auto) 85.0 H Lymph % (Auto) 6.0 L [place] % (Auto) 7.6 Eos % (Auto) 0.4 Baso % (Auto) 0.2 Lymph # (Auto) 0.9 L [place] # (Auto) 1.1 Eos # (Auto) 0.1 Baso # (Auto) 0.0 Abs Immat Gran (auto) 0.11 H Absolute Neuts (auto) 12.3 H Absolute Nucleated RBC 0.000 Nucleated RBC % (auto) 0.0 PT INR Anion Gap Estim Creat Clear Calc Estimated GFR Random Glucose Lactic Acid 0.9 Calcium Total Bilirubin Direct Bilirubin AST ALT Alkaline Phosphatase Troponin I High Sens Total Protein Albumin COVID-19 (TAMMIE) Negative COVID-19 Clin Com See Note 12/30/22 12/30/22 12/30/22 17:04 17:04 17:04 MCV MCH MCHC RDW Plt Count MPV Immature Gran % (Auto) Neut % (Auto) Lymph % (Auto) [place] % (Auto) Eos % (Auto) Baso % (Auto) Lymph # (Auto) [place] # (Auto) Eos # (Auto) Baso # (Auto) Abs Immat Gran (auto) Absolute Neuts (auto) Absolute Nucleated RBC Nucleated RBC % (auto) PT 14.6 H INR 1.3 H Anion Gap 13 Estim Creat Clear Calc 62.2 Estimated GFR > 60 Random Glucose 107 Lactic Acid Calcium 9.0 Total Bilirubin 0.5 Direct Bilirubin 0.2 AST 11 ALT 12 Alkaline Phosphatase 65 Troponin I High Sens < 2.7 Total Protein 6.8 Albumin 3.8 COVID-19 ([facility]) COVID-19 Clin Com 12/31/22 05:28 MCV 91.7 MCH 29.5 MCHC 32.1 RDW 15.7 Plt Count 270 MPV 11.2 Immature Gran % (Auto) Neut % (Auto) Lymph % (Auto) [place] % (Auto) Eos % (Auto) Baso % (Auto) Lymph # (Auto) [place] # (Auto) Eos # (Auto) Baso # (Auto) Abs Immat Gran (auto) Absolute Neuts (auto) Absolute Nucleated RBC 0.000 Nucleated RBC % (auto) 0.0 PT INR Anion Gap Estim Creat Clear Calc Estimated GFR Random Glucose Lactic Acid Calcium Total Bilirubin Direct Bilirubin AST ALT Alkaline Phosphatase Troponin I High Sens Total Protein Albumin COVID-19 ([facility]) COVID-19 Clin Com Assessment and Plan (1) Pneumonia: Status: Acute (2) Sepsis: Status: Acute Plan 57-year-old male with a PMH significant for?HIV, anxiety, depression, hx of hepatitis C, hx of lung abscess in 2020, and mild intermittent asthma who presents to the ED with?left-sided thoracic chest pain and worsening weakness. Pt will be admitted to the hospital for treatment and further evaluation of pneumonia that has failed outpatient therapy. Community-acquired pneumonia Patient 1st diagnosed with pneumonia on 12/11/2022 Failed outpatient therapy on cefuroxime and doxycycline CT?of chest suggestive of possible cystic change or necrosis, and increasing adjacent left lower lobe atelectasis/small infiltrate and in increasing small left pleural effusion continue IV ABX:? Vanco and Zosyn, started 12/30/2022,Follow cultures Pulmonology eval noted -continue current management with antibiotics if does not improve may need throacic surgery eval. ID consult Sepsis Patient meets sepsis criteria:? Pneumonia, elevated WBC, ,tachycardia tachypnea, lactic acid WNL Patient will be receiving IV fluids and broad-spectrum antibiotics Moderate protein calorie malnutrition Patient cachectic, globally weak, says he has had decreased p.o. intake of both fluids and solids, recent weight loss Nutrition consult HTN Continue amlodipine Mild intermittent asthma Not in acute exacerbation Continue home inhalers HIV Latest CD4 count on 11/29/2022 was 377 Continue home Biktarvy Peripheral neuropathy Continue get Mood disorder Continue clonazepam, mirtazapine, and risperidone Full Code DVT Prophylaxis: Lovenox inpatient need:sepsis with community-acquired?pneumonia that has failed outpatient therapy with IV antibiotics,blood cutltures pending, might need thoracic surgery evalif not improve. Time Spent With Patient Time: Total time managing care of this patient today ____ minutes. Quality Stroke Does the patient have a stroke diagnosis?: No VTE Prior VTE?: No VTE Risk Level:: Medical - moderate - high VTE Device Contraindication: Treatment Not Indicated VTE Drug Contraindication: N/A - Med Ordered
[2022-12-31 08:46] LABS: Creatinine Clr Calc Pharmacy 75.4; Estimated Glomerular Filt Rate > 60
--- NOTE | 2022-12-31 09:57 | PHA.MEDREC ---
Addendum entered by Ann Montalvo RPh 12/31/22 10:03: janett has reviewed med rec Original Note: Pharmacy Consult ? Medication Reconciliation Pharmacy has completed the medication reconciliation. Spoke to patient to confirm meds. Patient states they take mirtazapine 60mg at bedtime. Patient's pharmacy confirms.
[2022-12-31] MEDS: Lactated Ringers 1,000 ML 100 ML IVCONT ×2 (10:17→20:35)
[2022-12-31] MEDS: Lidocaine 4 % Patch ADH..PATCH 1 PATCH TRANSDERMA (10:17)
--- NOTE | 2022-12-31 11:20 | P.CONPL_ITS ---
History of Present Illness History of Present Illness Consult date: 12/31/22 Requesting physician: Shawn Adorno Chief complaint: Pneumonia that failed outpatient therapy Narrative: 57-year-old gentleman with underlying HIV with CD4 of 377 on HAART, hep C, recently treated on outpatient basis for community-acquired pneumonia admitted on 12/30/2022 with left-sided chest pain and noted to have on CT chest left lower lobe abscess and loculated pleural effusion. Patient started empiric antibiotics and admitted to general medical hernandez. Review of Systems Constitutional: Constitutional: Denies daytime sleepiness, Denies excessive sweating, Denies fatigue, Denies fever(s), Reports lethargy, Reports malaise, Denies night sweats, Denies snoring and Reports weight loss Eyes: Eyes: Denies blurry vision and Denies itchy eyes ENT: Denies nasal congestion, Denies post nasal drip, Denies sinus pain, Denies sinus pressure and Denies other ( Thrush) Cardiovascular: Cardiovascular: Denies chest pain, Denies pedal edema, Denies dyspnea, Reports dyspnea on exertion, Denies orthopnea and Denies paroxysmal nocturnal dyspnea Respiratory: Respiratory: Denies cough, Denies hemoptysis, Denies excessive phlegm production, Reports pain with cough (Left-sided), Denies dyspnea, Reports dyspnea on exertion, Denies snoring and Denies wheezing Gastrointestinal: Gastrointestinal: Denies abdominal pain and Denies heartburn Musculoskeletal: Musculoskeletal: Denies myalgias, Denies arthralgias and Denies joint swelling Integumentary/Breasts: Skin/Breast: Denies rash Neurologic: Denies memory loss and Denies seizure-like activity Psychiatric: Psychiatric: Denies abnormal sleep pattern, Denies anxiety and Denies memory loss Endocrine: Endocrine: Denies excessive sweating, Denies fatigue and Denies heat intolerance Hematologic/Lymphatic: Hematologic/Lymphatic: Denies easy bruising Allergic/Immunologic: Allergic/Immunologic: Denies itchy eyes, Denies seasonal rhinorrhea and Denies wheezing PMFSH Past Medical History Medical History Asthma Closed fracture of leg Depression Hemorrhoids Hepatitis C HIV (human immunodeficiency virus infection) Hypertension Kidney stones Pleuritic chest pain Pneumonia Substance abuse Surgical History Surgical History H/O hemorrhoidectomy Social History Social History Household Members: None Housing: Apartment Do you presently have visiting nurse or other home services: Yes ([employer]) Alcohol intake: never Patient Tobacco Use Status: Never used Tobacco Smoked in Last 30 Days: No Second Hand Smoke Exposure: No Use of substances other than those prescribed or required for medical reasons: No Currently Displaying Signs/Symptoms of Drug Intoxication Withdrawal: No Have you been hit, kicked, punched, or otherwise hurt by someone within the past year? If so, by whom?: No Do you feel safe in your current relationship?: Yes Is there a partner from a previous relationship who is making you feel unsafe now?: No Are you made to feel afraid or neglected: No Advance Directives: Yes Advance Directives on File: Yes Advance Directives Date on File: 04/25/21 Do you have thoughts of harming others: None Do you have a plan to hurt others: No Plan Recently lost weight without trying: Yes How much weight loss: 14-23 pounds Eating poorly because of decreased appetite: Yes Nutrition screen score: 5 Nutrition Risks: Poor intake 0-25% >4 days service: No Current occupational status: disabled Meds Allergies Allergy/AdvReac Type Severity Reaction Status Date / Time Seasonal Allergies Allergy Intermediate Eye Verified 12/20/22 07:44 Drainage codeine Allergy Mild RASH Verified 12/20/22 07:44 [From Tylenol-Codeine #3] levofloxacin [From Levaquin] Allergy Mild Rash Verified 12/20/22 07:44 metoclopramide [From Reglan] Allergy Mild Rash Verified 12/20/22 07:44 acetaminophen Allergy Unknown Unknown Verified 12/20/22 07:44 [Tylenol-Codeine #3] ibuprofen [From Motrin] Allergy Unknown Reflux Verified 12/20/22 07:44 Penicillins [PENICILLINS] Allergy Unknown Rash Verified 12/20/22 07:44 tramadol [From Ultram] AdvReac Mild Nausea and Verified 12/20/22 07:44 Vomiting Active Medications: Current Medications Bictegravir/Emtricitabine/Tenofovir (Bictegrav/Emtricit/Tenofov Ala Tablet) 1 tab PO DAILY [facility] Last Admin: 12/31/22 09:42 Dose: Not Given Clonazepam (Clonazepam 1 Mg Tablet) 1 mg PO DAILY [facility] Last Admin: 12/31/22 09:42 Dose: Not Given Docusate Sodium (Docusate Sodium 100 Mg Capsule) 100 mg PO DAILY PRN PRN Reason: Constipation Enoxaparin Sodium (Enoxaparin Sodium 40 Mg/0.4 Ml Syringe) 40 mg SUBCUT Q24H [facility] Last Admin: 12/30/22 23:22 Dose: 40 mg Fluticasone Propionate (Fluticasone Propionate 100 Mcg Blst.W.Dev) 1 puff INHA LE RBID [facility] Last Admin: 12/31/22 07:55 Dose: Not Given Gabapentin (Gabapentin 600 Mg Tablet) 600 mg PO TID [facility] Last Admin: 12/31/22 09:42 Dose: Not Given Lactated Ringer's (Lr) 1,000 mls @ 100 mls/hr IVCONT .Q10H [facility] Last Admin: 12/31/22 10:17 Dose: 100 mls/hr Piperacillin Sod/Tazobactam (Sod 4.5 gm/ Sodium Chloride) 100 mls @ 200 mls/hr IV Q6H [facility] Last Infusion: 12/31/22 10:32 Dose: Infused Vancomycin HCl 750 mg/ Sodium (Chloride) 265 mls @ 265 mls/hr IV Q12H [facility] Latanoprost (Latanoprost 0.005 % Ophth Carol 2.5 Ml Drops) 1 drop EYE-BOTH DAILY [facility] Last Admin: 12/31/22 10:24 Dose: Not Given Lidocaine (Lidocaine 4 % Patch Adh..Patch) 1 patch TRANSDERMA DAILY [facility]; Protocol Last Admin: 12/31/22 10:17 Dose: 1 patch Mirtazapine (Mirtazapine 30 Mg Tablet) 30 mg PO BEDTIME [facility] Last Admin: 12/31/22 00:19 Dose: 30 mg Morphine Sulfate (Morphine Sulfate 2 Mg/Ml Cartridge) 2 mg IVPUSH Q3H PRN; Protocol PRN Reason: Pain, Severe (Pain Scale 7-10) Last Admin: 12/31/22 03:25 Dose: 2 mg Omeprazole (Omeprazole 20 Mg Capsule.Dr) 20 mg PO BID [facility] Last Admin: 12/31/22 09:44 Dose: Not Given Ondansetron HCl (Ondansetron Hcl 4 Mg/2 Ml Vial) 4 mg IVPUSH Q8H PRN PRN Reason: Nausea and Vomiting Pharmacy Consult (Consult Rx Vancomycin Dosing) 1 each MISCELLANE DAILY PRN PRN Reason: Consult order Propranolol HCl (Propranolol Hcl La 60 Mg Cap.Sa.24h) 120 mg PO DAILY [facility]; Protocol Last Admin: 12/31/22 09:44 Dose: Not Given Risperidone (Risperidone 2 Mg Tablet) 2 mg PO BEDTIME [facility] Last Admin: 12/30/22 23:22 Dose: 2 mg Sodium Chloride (0.9 % Sodium Chloride Flush 3 Ml Syringe) 3 ml IVFLUSH QSHIFT [facility] Last Admin: 12/31/22 09:21 Dose: Not Given Tramadol HCl (Tramadol Hcl 50 Mg Tablet) 50 mg PO DAILY PRN PRN Reason: Pain, Moderate (Pain Scale 4-6 Home Medications Medication Instructions Recorded Confirmed Last Taken Type amlodipine 5 mg tablet 5 mg PO DAILY 12/30/22 12/30/22 Unknown History bictegravir 50 mg-emtricitabine 1 tab PO DAILY 12/30/22 12/30/22 Unknown History 200 mg-tenofovir alafenam 25 mg tablet (Biktarvy) celecoxib 200 mg capsule 200 mg PO BID 12/30/22 12/30/22 Unknown History clonazepam 1 mg tablet 1 mg PO DAILY 12/30/22 12/30/22 Unknown History fluticasone propionate 110 1 puff inhalation BID 12/30/22 12/30/22 Unknown History mcg/actuation HFA aerosol inhaler (Flovent HFA) gabapentin 600 mg tablet 600 mg PO TID 12/30/22 12/30/22 Unknown History ibuprofen 800 mg tablet 800 mg PO Q8H PRN pain 12/30/22 12/30/22 Unknown History latanoprost 0.005 % eye drops 1 drp ophthalmic (eye) DAILY 12/30/22 12/30/22 Unknown History mirtazapine 30 mg tablet 60 mg PO BEDTIME 12/30/22 12/31/22 Unknown History pantoprazole 40 mg tablet,delayed 40 mg PO DAILY@0630 12/30/22 12/31/22 Unknown History release propranolol 120 mg capsule,24 120 mg PO DAILY 12/30/22 12/30/22 Unknown History hr,extended release risperidone 2 mg tablet 2 mg PO BEDTIME 12/30/22 12/30/22 Unknown History tramadol 50 mg tablet 50 mg PO DAILY PRN Pain 12/30/22 12/30/22 Unknown History Physical Exam Vital Signs: Vital Signs: Last Vital Signs Temp 98.8 F 12/31/22 07:32 Pulse 97 12/31/22 07:32 Resp 18 12/31/22 07:32 BP 101/59 L 12/31/22 07:32 Pulse Ox 94 12/31/22 07:32 O2 Del Method Room Air 12/31/22 07:32 BMI result Body Mass Index 20.3 Const: General: no acute distress, ill appearing and lethargic (Arousable and answers questions) Nutritional Appearance: not obese Orientation/consciousness: lethargic (Arousable and answers questions) and Other orientation findings ( oriented) HEENT: Head: Yes atraumatic Mouth: no other ( thrush) Throat: No postnasal drainage Eyes: General: appearance normal, both eyes and all related structures Sclerae: sclerae normal EOM: EOMs intact bilaterally Neck: Neck: Yes supple Lymphatic: no lymphadenopathy noted Resp: Effort & Inspection: normal respiratory effort and no use of accessory m uscles Auscultation: clear to auscultation bilaterally Cardio: Rate: regular rate Rhythm: regular rhythm Heart sounds: no gallops, no murmurs and no rubs GI: Palpation (GI): Soft to palpation and Other GI palpation findings present ( nontender) Skin: General skin exam: other ( warm) Rashes: no rashes Extrem: General: No clubbing, No cyanosis and Yes edema (Trace bilateral) Results Laboratory Findings 12/31/22 05:28 12/31/22 08:01 ABG, PT/INR, D-dimer: PT/INR, D-dimer PT 14.6 SEC (10.0-13.1) H 12/30/22 17:04 INR 1.3 (0.9-1.1) H 12/30/22 17:04 Abnormal lab findings: Abnormal Labs 12/30/22 12/30/22 12/31/22 17:04 17:04 05:28 WBC 14.5 H 27.5 H RBC 4.40 L 4.58 L Hgb 13.0 L 13.5 L Hct 39.3 L Immature Gran % (Auto) 0.8 H Neut % (Auto) 85.0 H Lymph % (Auto) 6.0 L Lymph # (Auto) 0.9 L Abs Immat Gran (auto) 0.11 H Absolute Neuts (auto) 12.3 H PT 14.6 H INR 1.3 H Assessment and Plan (1) Abscess of lung: Qualifiers: Laterality: right Lung location: upper lobe of lung Pulmonary abscess pneumonia presence: with pneumonia Qualified Code(s): J85.1 - Abscess of lung with pneumonia Status: Acute (2) Loculated pleural effusion: Status: Acute Plan Impression: 57-year-old gentleman with underlying HIV on HAART and hepatitis-C admitted with left-sided chest discomfort secondary to pulmonary abscess and loculated pleural effusion. Recommendations: Broad-spectrum antibiotics while cultures are pending, if not improving in 2-3 days, would suggest thoracic surgery evaluation for decortication. Time Spent With Patient Time: Total time managing care of this patient today ____ minutes. Procedures Date of Service Date of Service: 12/31/22
[2022-12-31] MEDS: vancomycin HCL 750 MG in 0.9 % Sodium Chloride 250 ML 265 MG IV ×2 (11:51→22:00)
--- NOTE | 2022-12-31 15:23 | MHC.CM.PN ---
PT REPORTS HE LIVES ALONE AND HAS COMPUTED TOMOGRAPHY TECHNICIAN AND RN SERVICES HE REPORTS BOTH SERVICES ARE DAILY PT SAYS THE RN IS FROM [facility], LEFT FOR [facility] LIAISON,RORY, TO CONFIRM THIS PT DENIES USE OF DME HE IS COVID VAX X 5 HCP ON FILE PCP: DR MATHIS IMM DELIVERED CURRENT DC PLAN IS HOME WITH RESUMPTION OF SERVICES [facility]
--- NOTE | 2022-12-31 15:46 | PC.NURSE ---
Patient with no void for 7-3 shift. Patient states unable to void. Bladder scanned for 630cc. Dr. Amador notified and orders to straight cath placed.
[2022-12-31] MEDS: Albuterol/Iprat 2.5/0.5MG 3 ML AMPUL.NEB INHALE ×2 (15:52→19:53)
[2022-12-31] MEDS: 0.9 % Sodium Chloride Flush 3 ML SYRINGE IVFLUSH (15:57)
--- NOTE | 2022-12-31 15:57 | PC.NURSE ---
Patient reporting 9/10 pain to left side. Not taking complete deep breaths. o2 sat 87-88% on room air. Medicated with morphine. Placed on 2L cannula. Encouraged pursed lip breathing.Sat 88-89% on 2L. 91-92% on 3L. Reported to Dr. Amador. Patient resting comfortably after morphine administered.
--- NOTE | 2022-12-31 16:33 | PC.NURSE ---
Addendum entered by Mikki Dowell RN 12/31/22 18:24: patient was not able to urinate,str cath for 200 ml of yellow urine ,patient tolerated it well Original Note: Patient voided 420 ml of jean urine ,scanned for 389 ml,patient states he will try to urinate again in about 20 min,will monitor,pt denies bladder discomfort.
[2022-12-31 18:27] LABS: Amphetamine Screen Urine Not Detected (Not Detect); Barbiturates, Urine Not Detected (Not Detect); Benzodiazepines Screen Urine POSITIVE (Not Detect); Cannabinoid Screen Urine Not Detected (Not Detect); Cocaine Screen Urine POSITIVE (Not Detect); Fentanyl, urine Not Detected (Not Detect); Opiate Screen Urine POSITIVE (Not Detect); Phencyclidine Screen Urine Not Detected (Not Detect)
[2022-12-31] MEDS: Fluticasone Propionate 100 MCG BLST.W.DEV 1 PUFF INHALE (20:07)
[2022-12-31] MEDS: Enoxaparin Sodium 40 MG/0.4 ML SYRINGE SUBCUT (21:59)
[2023-01-01] VITALS (8 sets, daily range): BP systolic 108–130; BP diastolic 64–72; PULSE 65–100; RESP 17–22; TEMP 37.1–37.4; O2SAT 85–95; BMI 20.3
[2023-01-01] MEDS: Piperacillin Sodium/Tazobactam 4.5 GM in 0.9 % Sodium Chloride 100 ML IV ×4 (02:50→19:42)
[2023-01-01] MEDS: Morphine Sulfate 2 MG/ML CARTRIDGE IVPUSH ×5 (02:54→19:37)
[2023-01-01 06:59] LABS: Creatinine Clr Calc Pharmacy 86.1; Estimated Glomerular Filt Rate > 60
[2023-01-01] MEDS: Albuterol/Iprat 2.5/0.5MG 3 ML AMPUL.NEB INHALE ×4 (08:37→19:42)
[2023-01-01] MEDS: Lidocaine 4 % Patch ADH..PATCH 1 PATCH TRANSDERMA (08:41)
[2023-01-01] MEDS: Lactated Ringers 1,000 ML 100 ML IVCONT ×2 (09:09→20:23)
[2023-01-01 11:07] LABS: Vancomycin Trough 6.4 mcg/mL (10.0-20.0)
--- NOTE | 2023-01-01 11:16 | HE.PHANOTE ---
vancomycin dosing Level subtherapeutic today at 6.4. Renal function is improving daily. Will increase dose vancomycin 1250 mg Q12H. New expected AUC 542 with a trough of 14.1. Will get another level in 24 hours on 01/02 @ 1000. Pharmacy will continue to monitor renal function. Chelo Fung, PharmD
[2023-01-01] MEDS: vancomycin HCL 1,250 MG in 0.9 % Sodium Chloride 250 ML 166.67 MG IV ×2 (11:29→23:41)
[2023-01-01] MEDS: Latanoprost 0.005 % Ophth Sol 2.5 ML DROPS 1 DROP EYE-BOTH (11:29)
--- NOTE | 2023-01-01 11:57 | HO.PM.IMPN ---
Subjective Subjective Date of Service: 01/01/23 Interval History: Pneumonia Review of Systems sob seems similar to before has cough no fevers Physical Exam Vital Signs: Vital Signs: Last Vital Signs Temp 98.8 F 01/01/23 07:24 Pulse 83 01/01/23 11:48 Resp 18 01/01/23 11:48 BP 108/64 01/01/23 07:24 Pulse Ox 95 01/01/23 07:24 O2 Del Method Nasal Cannula 01/01/23 07:24 O2 Flow Rate 3.0 01/01/23 07:24 BMI result Body Mass Index 20.3 Appearance: Alert.? Oriented X3.?generalised weak. cvs: rrr, [id number]. res: clear to auscultation ,no rhonchii or wheezing abd: no rebound or guarding ,nt, bs present. ext pulses present , no cyanosis . neuro: axo3 , nonfocal. Objective Data Active Medications Albuterol/Ipratropium (Albuterol/Iprat 2.5/0.5mg 3 Ml Ampul.Neb) 3 ml INHALE RQ4H WHILE AWAKE [facility] Last Admin: 01/01/23 11:47 Dose: 3 ml Documented By: MARIANNE Bictegravir/Emtricitabine/Tenofovir (Bictegrav/Emtricit/Tenofov Ala Tablet) 1 tab PO DAILY [facility] Last Admin: 01/01/23 08:40 Dose: Not Given Documented By: UMBERTO Non-Admin Reason: NPO Clonazepam (Clonazepam 1 Mg Tablet) 1 mg PO DAILY [facility] Last Admin: 01/01/23 08:40 Dose: Not Given Documented By: UMBERTO Non-Admin Reason: NPO Docusate Sodium (Docusate Sodium 100 Mg Capsule) 100 mg PO DAILY PRN PRN Reason: Constipation Enoxaparin Sodium (Enoxaparin Sodium 40 Mg/0.4 Ml Syringe) 40 mg SUBCUT Q24H [facility] Last Admin: 12/31/22 21:59 Dose: 40 mg Documented By: RAJI Fluticasone Propionate (Fluticasone Propionate 100 Mcg Blst.W.Dev) 1 puff INHALE RBID [facility] Last Admin: 01/01/23 08:40 Dose: Not Given Documented By: MIRTHA Non-Admin Reason: Patient Refused Gabapentin (Gabapentin 600 Mg Tablet) 600 mg PO TID [facility] Last Admin: 01/01/23 08:40 Dose: Not Given Documented By: UMBERTO Non-Admin Reason: NPO Lactated Ringer's (Lr) 1,000 mls @ 100 mls/hr IVCONT .Q10H [facility] Last Admin: 01/01/23 09:09 Dose: 100 mls/hr Documented By: UMBERTO Piperacillin Sod/Tazobactam (Sod 4.5 gm/ Sodium Chloride) 100 mls @ 200 mls/hr IV Q6H [facility] Last Infusion: 01/01/23 09:15 Dose: 0 mls/hr Documented By: UMBERTO Vancomycin HCl 1,250 mg/ (Sodium Chloride) 250 mls @ 166.667 mls/hr IV Q12H [facility] Last Admin: 01/01/23 11:29 Dose: 166.67 mls/hr Documented By: UMBERTO Latanoprost (Latanoprost 0.005 % Ophth Carol 2.5 Ml Drops) 1 drop EYE-BOTH DAILY [facility] Last Admin: 01/01/23 11:29 Dose: 1 drop Documented By: UMBERTO Lidocaine (Lidocaine 4 % Patch Adh..Patch) 1 patch TRANSDERMA DAILY [facility]; Protocol Last Admin: 01/01/23 08:41 Dose: 1 patch Documented By: UMBERTO Mirtazapine (Mirtazapine 30 Mg Tablet) 30 mg PO BEDTIME [facility] Last Admin: 12/31/22 00:19 Dose: 30 mg Documented By: MACARIO Morphine Sulfate (Morphine Sulfate 2 Mg/Ml Cartridge) 2 mg IVPUSH Q3H PRN; Protocol PRN Reason: Pain, Severe (Pain Scale 7-10) Last Admin: 01/01/23 11:52 Dose: 2 mg Documented By: UMBERTO Omeprazole (Omeprazole 20 Mg Capsule.Dr) 20 mg PO BID [facility] Last Admin: 01/01/23 08:40 Dose: Not Given Documented By: UMBERTO Non-Admin Reason: NPO Ondansetron HCl (Ondansetron Hcl 4 Mg/2 Ml Vial) 4 mg IVPUSH Q8H PRN PRN Reason: Nausea and Vomiting Pharmacy Consult (Consult Rx Vancomycin Dosing) 1 each MISCELLANE DAILY PRN PRN Reason: Consult order Propranolol HCl (Propranolol Hcl La 60 Mg Cap.Sa.24h) 120 mg PO DAILY [facility]; Protocol Last Admin: 01/01/23 08:42 Dose: Not Given Documented By: UMBERTO Non-Admin Reason: NPO Risperidone (Risperidone 2 Mg Tablet) 2 mg PO BEDTIME [facility] Last Admin: 12/31/22 20:18 Dose: Not Given Documented By: RAJI Non-Admin Reason: NPO Sodium Chloride (0.9 % Sodium Chloride Flush 3 Ml Syringe) 3 ml IVFLUSH QSHIFT [facility] Last Admin: 01/01/23 08:39 Dose: Not Given Documented By: UMBERTO Non-Admin Reason: IV Running Tramadol HCl (Tramadol Hcl 50 Mg Tablet) 50 mg PO DAILY PRN PRN Reason: Pain, Moderate (Pain Scale 4-6 Labs 12/31/22 05:28 01/01/23 05:25 Labs: Laboratory Results - last 24 hr 12/31/22 01/01/23 01/01/23 16:07 05:25 10:19 Estim Creat Clear Calc 86.1 Estimated GFR > 60 Vancomycin Trough 6.4 L Urine Opiates Screen POSITIVE H Urine Fentanyl Screen Not Detected Ur Barbiturates Screen Not Detected Ur Phencyclidine Scrn Not Detected Ur Amphetamines Screen Not Detected U Benzodiazepines Scrn POSITIVE H Urine Cocaine Screen POSITIVE H U Marijuana (THC) Screen Not Detected Microbiology Microbiology Results: Microbiology 12/30/22 17:32 Blood Culture - Preliminary Blood - Venous No growth after 24 hours. 12/30/22 17:26 Blood Culture - Preliminary Blood - Venous No growth after 24 hours. Assessment and Plan (1) Pneumonia: Status: Acute (2) Sepsis: Status: Acute Plan 57-year-old male with a PMH significant for?HIV, anxiety, depression, hx of hepatitis C, hx of lung abscess in 2020, and mild intermittent asthma who presents to the ED with?left-sided thoracic chest pain and worsening weakness. Pt will be admitted to the hospital for treatment and further evaluation of pneumonia that has failed outpatient therapy. Community-acquired pneumonia Patient 1st diagnosed with pneumonia on 12/11/2022 Failed outpatient therapy on cefuroxime and doxycycline CT?of chest suggestive of possible cystic change or necrosis, and increasing adjacent left lower lobe atelectasis/small infiltrate and in increasing small left pleural effusion continue IV ABX:? Vanco and Zosyn, started 12/30/2022,Follow cultures Pulmonology eval noted -continue current management with antibiotics if does not improve may need throacic surgery eval. ID consult Sepsis Patient meets sepsis criteria:? Pneumonia, elevated WBC, ,tachycardia tachypnea, lactic acid WNL Patient will be receiving IV fluids and broad-spectrum antibiotics Moderate protein calorie malnutrition Patient cachectic, globally weak, says he has had decreased p.o. intake of both fluids and solids, recent weight loss Nutrition consult HTN Continue amlodipine Mild intermittent asthma Not in acute exacerbation Continue home inhalers HIV Latest CD4 count on 11/29/2022 was 377 Continue home Biktarvy Peripheral neuropathy Continue get Mood disorder Continue clonazepam, mirtazapine, and risperidone Full Code DVT Prophylaxis: Lovenox inpatient need:sepsis with community-acquired?pneumonia that has failed outpatient therapy with IV antibiotics,blood cutltures pending, might need thoracic surgery evalif not improve. Time Spent With Patient Time: Total time managing care of this patient today ____ minutes. Quality Stroke Does the patient have a stroke diagnosis?: No VTE Prior VTE?: No VTE Risk Level:: Medical - moderate - high VTE Device Contraindication: Treatment Not Indicated VTE Drug Contraindication: N/A - Med Ordered
[2023-01-01] MEDS: traMADoL HCL 50 MG TABLET PO (14:08)
[2023-01-01] MEDS: Gabapentin 600 MG TABLET PO ×2 (14:09→19:37)
--- NOTE | 2023-01-01 14:26 | MHC.SL.SWA ---
Speech Pathologist Impression: Risk of Aspiration Due to: Poor PO Intake Dysphasia Diet Status: Diet downgrade Liquid Consistency and Strategies for Safe Swallow: Liquid Intake Recommendation: Thin Liquid Intake Strategies: Small Sips Double Swallow Solid Food Consistency: Dietary Recommendations: Chopped/Advanced (NDD3) Additional Modifications to Solid Foods: Oral Medication Intake: Whole with Liquid Please contact the pharmacy regarding appropriate crushable or liquid drug formulations that are available whenever modified delivery is recommended. Compensatory Strategies and Precautions to be Taken for Safe Swallow: Sitting Upright (90 deg) Double Swallow Small Bites and Sips Alternate Liquids/Solids Rate of Ingestion Change Supervision While Eating and Drinking for Safe Swallow: Intermittent Supervision Swallowing Recommended Treatments: Compens. Strategy Educat. Recommendation for Speech: Inpatient Speech Therapy Comment: Recommend softer, easier to chew foods to promote esophageal clearance. Additional precautions include sitting upright before and after meals, smaller portions, and alternating liquids with solids. Frequency/Duration: PRN Timeline to reassess: PRN Enterprise Application Architect Clinican/Clinical Fellow: No Supervisory Statement: I have reviewed and agree with the student/clinical fellow's documentation: N/A Speech Language Pathologist: Robby Blanton M.A., CCC-CHILDREN'S LUNCHROOM SUPERVISOR
--- NOTE | 2023-01-01 15:21 | MHC.CM.PN ---
Per MD rounds no discharge today. CREDIT ADMINISTRATION MANAGER swallow eval pending. Patient may need a Thorasic surgery consult for effusion. DP home with resumption of [employer] SUPERINTENDENT services and CCA RN. Patient will need assist with transport , [facility].
--- NOTE | 2023-01-01 15:42 | W.PM.IDCN ---
History of Present Illness Data of Consult Service Date: 01/01/23 Requesting physician: Soraida Amador Primary Care Provider: Unknown Physician HPI Reason for consult: shortness of breath He has cough and shortness of breath for last several days. He has reported left sided pneumonia and some concern over necrosis He had been on antibiotics finished about two days ago since December 21. He has been taking Biktarvy He has CD 4 count and viral load at [facility]. Review of Systems Review of Systems: Yes all other systems are reviewed and are negative [facility] Past Medical History Medical History Asthma Closed fracture of leg Depression Hemorrhoids Hepatitis C HIV (human immunodeficiency virus infection) Hypertension Kidney stones Pleuritic chest pain Pneumonia Substance abuse Surgical History Surgical History H/O hemorrhoidectomy Social History Social History Household Members: None Housing: Apartment Do you presently have visiting nurse or other home services: Yes ([employer]) Alcohol intake: never Patient Tobacco Use Status: Never used Tobacco Smoked in Last 30 Days: No Second Hand Smoke Exposure: No Use of substances other than those prescribed or required for medical reasons: No Currently Displaying Signs/Symptoms of Drug Intoxication Withdrawal: No Have you been hit, kicked, punched, or otherwise hurt by someone within the past year? If so, by whom?: No Do you feel safe in your current relationship?: Yes Is there a partner from a previous relationship who is making you feel unsafe now?: No Are you made to feel afraid or neglected: No Advance Directives: Yes Advance Directives on File: Yes Advance Directives Date on File: 04/25/21 Do you have thoughts of harming others: None Do you have a plan to hurt others: No Plan Recently lost weight without trying: Yes How much weight loss: 14-23 pounds Eating poorly because of decreased appetite: Yes Nutrition screen score: 5 Nutrition Risks: Poor intake 0-25% >4 days service: No Current occupational status: disabled Meds Allergies Allergy/AdvReac Type Severity Reaction Status Date / Time Seasonal Allergies Allergy Intermediate Eye Verified 12/20/22 07:44 Drainage codeine Allergy Mild RASH Verified 12/20/22 07:44 [From Tylenol-Codeine #3] levofloxacin [From Levaquin] Allergy Mild Rash Verified 12/20/22 07:44 metoclopramide [From Reglan] Allergy Mild Rash Verified 12/20/22 07:44 acetaminophen Allergy Unknown Unknown Verified 12/20/22 07:44 [Tylenol-Codeine #3] ibuprofen [From Motrin] Allergy Unknown Reflux Verified 12/20/22 07:44 Penicillins [PENICILLINS] Allergy Unknown Rash Verified 12/20/22 07:44 tramadol [From Ultram] AdvReac Mild Nausea and Verified 12/20/22 07:44 Vomiting Active Medications: Current Medications Albuterol/Ipratropium (Albuterol/Iprat 2.5/0.5mg 3 Ml Ampul.Neb) 3 ml INHALE RQ4H WHILE AWAKE [facility] Last Admin: 01/01/23 11:47 Dose: 3 ml Bictegravir/Emtricitabine/Tenofovir (Bictegrav/Emtricit/Tenofov Ala Tablet) 1 tab PO DAILY [facility] Last Admin: 01/01/23 08:40 Dose: Not Given Clonazepam (Clonazepam 1 Mg Tablet) 1 mg PO DAILY [facility] Last Admin: 01/01/23 08:40 Dose: Not Given Docusate Sodium (Docusate Sodium 100 Mg Capsule) 100 mg PO DAILY PRN PRN Reason: Constipation Enoxaparin Sodium (Enoxaparin Sodium 40 Mg/0.4 Ml Syringe) 40 mg SUBCUT Q24H [facility] Last Admin: 12/31/22 21:59 Dose: 40 mg Fluticasone Propionate (Fluticasone Propionate 100 Mcg Blst.W.Dev) 1 puff INHALE RBID [facility] Last Admin: 01/01/23 08:40 Dose: Not Given Gabapentin (Gabapentin 600 Mg Tablet) 600 mg PO TID [facility] Last Admin: 01/01/23 14:09 Dose: 600 mg Lactated Ringer's (Lr) 1,000 mls @ 100 mls/hr IVCONT .Q10H [facility] Last Admin: 01/01/23 14:11 Dose: Not Given Piperacillin Sod/Tazobactam (Sod 4.5 gm/ Sodium Chloride) 100 mls @ 200 mls/hr IV Q6H [facility] Last Infusion: 01/01/23 14:43 Dose: Infused Vancomycin HCl 1,250 mg/ (Sodium Chloride) 250 mls @ 166.667 mls/hr IV Q12H [facility] Last Infusion: 01/01/23 13:11 Dose: Infused Latanoprost (Latanoprost 0.005 % Ophth Carol 2.5 Ml Drops) 1 drop EYE-BOTH DAILY [facility] Last Admin: 01/01/23 11:29 Dose: 1 drop Lidocaine (Lidocaine 4 % Patch Adh..Patch) 1 patch TRANSDERMA DAILY [facility]; Protocol Last Admin: 01/01/23 08:41 Dose: 1 patch Mirtazapine (Mirtazapine 30 Mg Tablet) 30 mg PO BEDTIME [facility] Last Admin: 12/31/22 00:19 Dose: 30 mg Morphine Sulfate (Morphine Sulfate 2 Mg/Ml Cartridge) 2 mg IVPUSH Q3H PRN; Protocol PRN Reason: Pain, Severe (Pain Scale 7-10) Last Admin: 01/01/23 15:00 Dose: 2 mg Omeprazole (Omeprazole 20 Mg Capsule.Dr) 20 mg PO BID [facility] Last Admin: 01/01/23 08:40 Dose: Not Given Ondansetron HCl (Ondansetron Hcl 4 Mg/2 Ml Vial) 4 mg IVPUSH Q8H PRN PRN Reason: Nausea and Vomiting Pharmacy Consult (Consult Rx Vancomycin Dosing) 1 each MISCELLANE DAILY PRN PRN Reason: Consult order Propranolol HCl (Propranolol Hcl La 60 Mg Cap.Sa.24h) 120 mg PO DAILY [facility]; Protocol Last Admin: 01/01/23 08:42 Dose: Not Given Risperidone (Risperidone 2 Mg Tablet) 2 mg PO BEDTIME [facility] Last Admin: 12/31/22 20:18 Dose: Not Given Sodium Chloride (0.9 % Sodium Chloride Flush 3 Ml Syringe) 3 ml IVFLUSH QSHIFT [facility] Last Admin: 01/01/23 08:39 Dose: Not Given Tramadol HCl (Tramadol Hcl 50 Mg Tablet) 50 mg PO DAILY PRN PRN Reason: Pain, Moderate (Pain Scale 4-6 Last Admin: 01/01/23 14:08 Dose: 50 mg Home Medications Medication Instructions Recorded Confirmed Last Taken Type amlodipine 5 mg tablet 5 mg PO DAILY 12/30/22 12/30/22 Unknown History bictegravir 50 mg-emtricitabine 1 tab PO DAILY 12/30/22 12/30/22 Unknown History 200 mg-tenofovir alafenam 25 mg tablet (Biktarvy) celecoxib 200 mg capsule 200 mg PO BID 12/30/22 12/30/22 Unknown History clonazepam 1 mg tablet 1 mg PO DAILY 12/30/22 12/30/22 Unknown History fluticasone propionate 110 1 puff inhalation BID 12/30/22 12/30/22 Unknown History mcg/actuation HFA aerosol inhaler (Flovent HFA) gabapentin 600 mg tablet 600 mg PO TID 12/30/22 12/30/22 Unknown History ibuprofen 800 mg tablet 800 mg PO Q8H PRN pain 12/30/22 12/30/22 Unknown History latanoprost 0.005 % eye drops 1 drp ophthalmic (eye) DAILY 12/30/22 12/30/22 Unknown History mirtazapine 30 mg tablet 60 mg PO BEDTIME 12/30/22 12/31/22 Unknown History pantoprazole 40 mg tablet,delayed 40 mg PO DAILY@0630 12/30/22 12/31/22 Unknown History release propranolol 120 mg capsule,24 120 mg PO DAILY 12/30/22 12/30/22 Unknown History hr,extended release risperidone 2 mg tablet 2 mg PO BEDTIME 12/30/22 12/30/22 Unknown History tramadol 50 mg tablet 50 mg PO DAILY PRN Pain 12/30/22 12/30/22 Unknown History Physical Exam Vital Signs: Vital Signs: Last Vital Signs Temp 98.8 F 01/01/23 07:24 Pulse 83 01/01/23 11:48 Resp 18 01/01/23 11:48 BP 108/64 01/01/23 07:24 Pulse Ox 95 01/01/23 07:24 O2 Del Method Nasal Cannula 01/01/23 07:24 O2 Flow Rate 3.0 01/01/23 07:24 BMI result Body Mass Index 20.3 Const: General: cooperative HEENT: Head: Yes normal to inspection Face and sinus: Yes normal facial exam Mouth: Normal oral and palatal mucosa present Teeth and gingiva: dentition normal Eyes: General: appearance normal, both eyes and all related structures Pupils: Equal, round and reactive pupils present Resp: Effort & Inspection: normal respiratory effort Cardio: Rate: regular rate Rhythm: regular rhythm GI: Palpation (GI): Soft to palpation and nontender : General: Yes no CVA tenderness Back/Spine/Pelvis: Back: no CVA tenderness Skin: General skin exam: no rashes or lesions noted Neuro: General: moves all extremities Cranial nerves: Yes Equal, round and reactive pupils present Extrem: General: Yes normal to inspection Psych: Appearance: grossly normal Results Labs 12/31/22 05:28 01/01/23 05:25 Labs: BMP 01/01/23 05:25 Creatinine 0.78 Microbiology Microbiology Results: Microbiology 12/30/22 17:32 Blood - Venous Blood Culture - Preliminary No growth after 24 hours. 12/30/22 17:26 Blood - Venous Blood Culture - Preliminary No growth after 24 hours. Assessment and Plan (1) Loculated pleural effusion: Status: Acute He has HIV with relatively preserved immune function with CD4 count 377 and viral load undetectable on 11/30/2022. However he can still have mycobacterium,fungal organisms, necrotic pneumonia Apparently he has not had success with po antibiotics. (2) Sepsis: Status: Acute (3) Pneumonia: Status: Acute Plan Check cryptococcal antigen. Check nares MRSA and stop Vancomycin if negative. IV Piperacillin/Tazobactam 3-5 days and then po Doxycycline or Ceftin for 14 day total. Time Spent With Patient Time: Total time managing care of this patient today ____ minutes.
--- NOTE | 2023-01-01 15:45 | MHC.CLN ---
NUTRITION CONSULT FOR [place]HEX[place], WEIGHT LOSS, NOT EATING WELL. DIET=REGULAR, NDD3 CONSISTENCY. SIGNIFICANT WEIGHT LOSS X 11 MONTHS, -17.4% TAKES ENSURE SUPPLEMENT AT HOME. ORDERING ENSURE TID (VANILLA). PROVIDES ADDITIONAL 1050 KCALS, 60 G PROTEIN. NUTRITION DX NON SEVERE MALNUTRITION IN THE CONTEXT OF CHRONIC ILLNESS. CURRENT INTAKE REPORTED BY PATIENT POOR. REPORTS PAIN WHEN EATING. DIET LIBERALIZED FROM 2 G SODIUM TO PROMOTE INTAKE. FOLLOW FOR INTAKE, DIET ADVANCEMENT, DIET TOLERANCE. SEE CLINICAL NUTRITION ASSESSMENT 01/01/23.
[2023-01-01 15:58] LABS: MRSA Nasal PCR NEGATIVE (Negative); SA Nasal PCR NEGATIVE (Negative)
[2023-01-01] MEDS: Omeprazole 20 MG CAPSULE.DR PO (19:37)
[2023-01-01] MEDS: risperiDONE 2 MG TABLET PO (19:37)
[2023-01-01] MEDS: Enoxaparin Sodium 40 MG/0.4 ML SYRINGE SUBCUT (23:40)
[2023-01-02] VITALS (14 sets, daily range): BP systolic 104–146; BP diastolic 62–90; PULSE 70–110; RESP 16–24; TEMP 36.4–38.7; O2SAT 88–96
[2023-01-02] MEDS: Morphine Sulfate 2 MG/ML CARTRIDGE IVPUSH ×6 (00:44→20:54)
[2023-01-02] MEDS: diphenhydrAMINE HCL 50 MG/ML VIAL IVPUSH ×2 (01:43→21:32)
[2023-01-02] MEDS: Piperacillin Sodium/Tazobactam 4.5 GM in 0.9 % Sodium Chloride 100 ML IV ×4 (02:28→20:56)
[2023-01-02] MEDS: Benzonatate 100 MG CAPSULE 200 MG PO ×2 (02:28→16:36)
--- NOTE | 2023-01-02 05:02 | PC.NURSE ---
Pt voided on urinal and PVR scan =401ml, encouraged pt to void more, as pt is refusing to be cath, later voided another 400ml in urinal. requested for sleep med, Dr. Ji was made aware, Benadryl Iv given, also pt had persistent bouts of weak cough loose but pt is hard to expectorate, pt requested for cough med, Dr. Ji was informed, Tessalon pearls ordered and given, pt felt asleep and relieved after.
[2023-01-02 06:36] LABS: Hematocrit 38.4 % (42.0-52.0); Hemoglobin 12.3 g/dl (14.0-18.0); Mean Corpuscular Hemoglobin 28.9 pg (27.0-33.0); Mean Corpuscular Volume 90.4 fL (80.0-98.0); Mean Platelet Volume 11.6 fL (9.4-12.4); Platelet Count 254 X10*3/uL (160-400); Red Blood Count 4.25 X10*6/uL (4.60-5.80); Red Cell Distribution Width 15.6 % (11.0-16.0); White Blood Count 16.5 X10*3/uL (4.8-10.8)
[2023-01-02 06:56] LABS: Anion Gap 13 (12-20); Blood Urea Nitrogen 7 mg/dL (9-16); Calcium 7.7 mg/dL (8.4-10.2); Carbon Dioxide 26 mmol/L (22-29); Chloride 106 mmol/L (96-108); Creatinine Clr Calc Pharmacy 83.9; Estimated Glomerular Filt Rate > 60; Glucose Random 110 mg/dL (60-115); Potassium 3.5 mmol/L (3.3-5.1); Sodium 141 mmol/L (135-145)
[2023-01-02] MEDS: clonazePAM 1 MG TABLET PO (07:50)
[2023-01-02] MEDS: Lidocaine 4 % Patch ADH..PATCH 1 PATCH TRANSDERMA (07:50)
[2023-01-02] MEDS: Omeprazole 20 MG CAPSULE.DR PO ×2 (07:50→20:58)
[2023-01-02] MEDS: Latanoprost 0.005 % Ophth Sol 2.5 ML DROPS 1 DROP EYE-BOTH (07:50)
[2023-01-02] MEDS: Propranolol HCL LA 60 MG CAP.SA.24H 120 MG PO (07:50)
[2023-01-02] MEDS: Gabapentin 600 MG TABLET PO ×3 (07:50→20:58)
[2023-01-02] MEDS: Bictegrav/Emtricit/Tenofov Ala TABLET 1 TAB PO (07:54)
[2023-01-02] MEDS: Albuterol/Iprat 2.5/0.5MG 3 ML AMPUL.NEB INHALE ×4 (08:45→19:29)
--- NOTE | 2023-01-02 09:17 | P.PNIM_ITS ---
Subjective Subjective Date of Service: 01/02/23 Interval History: f/u on PNA in HIV pt, he has pain in his side Physical Exam Vital Signs: Vital Signs: Last Vital Signs Temp 100.9 F H 01/02/23 07:38 Pulse 84 01/02/23 08:50 Resp 24 H 01/02/23 08:50 BP 146/90 H 01/02/23 07:38 Pulse Ox 93 01/02/23 07:38 O2 Del Method Nasal Cannula 01/02/23 07:38 O2 Flow Rate 4 01/02/23 07:38 BMI result Body Mass Index 20.3 Const: Other: General: AO X 3, no acute distress Resp: CTA bilateral CVS: S1,S2,RRR GI: +BS, NT, no distention Skin: No rash Neuro: motor grossly intact Psych: appropriate affect Objective Data Active Medications Albuterol/Ipratropium (Albuterol/Iprat 2.5/0.5mg 3 Ml Ampul.Neb) 3 ml INHALE RQ4H WHILE AWAKE [facility] Last Admin: 01/02/23 08:45 Dose: 3 ml Documented By: MIRTHA Benzonatate (Benzonatate 100 Mg Capsule) 200 mg PO TID PRN PRN Reason: Cough Last Admin: 01/02/23 02:28 Dose: 200 mg Documented By: LISSY Bictegravir/Emtricitabine/Tenofovir (Bictegrav/Emtricit/Tenofov Ala Tablet) 1 tab PO DAILY [facility] Last Admin: 01/02/23 07:54 Dose: 1 tab Documented By: DABLuis Alberto Clonazepam (Clonazepam 1 Mg Tablet) 1 mg PO DAILY [facility] Last Admin: 01/02/23 07:50 Dose: 1 mg Documented By: DABLuis Alberto Docusate Sodium (Docusate Sodium 100 Mg Capsule) 100 mg PO DAILY PRN PRN Reason: Constipation Enoxaparin Sodium (Enoxaparin Sodium 40 Mg/0.4 Ml Syringe) 40 mg SUBCUT Q24H [facility] Last Admin: 01/01/23 23:40 Dose: 40 mg Documented By: LISSY Fluticasone Propionate (Fluticasone Propionate 100 Mcg Blst.W.Dev) 1 puff INHALE RBID [facility] Last Admin: 01/02/23 08:45 Dose: Not Given Documented By: MIRTHA Non-Admin Reason: Patient Refused Gabapentin (Gabapentin 600 Mg Tablet) 600 mg PO TID [facility] Last Admin: 01/02/23 07:50 Dose: 600 mg Documented By: SOLOMON Piperacillin Sod/Tazobactam (Sod 4.5 gm/ Sodium Chloride) 100 mls @ 200 mls/hr IV Q6H [facility] Last Infusion: 01/02/23 08:28 Dose: 0 mls/hr Documented By: SOLOMON Vancomycin HCl 1,250 mg/ (Sodium Chloride) 250 mls @ 166.667 mls/hr IV Q12H [facility] Last Infusion: 01/02/23 01:49 Dose: 0 mls/hr Documented By: CASTILM Latanoprost (Latanoprost 0.005 % Ophth Carol 2.5 Ml Drops) 1 drop EYE-BOTH DAILY [facility] Last Admin: 01/02/23 07:50 Dose: 1 drop Documented By: SOLOMON Lidocaine (Lidocaine 4 % Patch Adh..Patch) 1 patch TRANSDERMA DAILY [facility]; Protocol Last Admin: 01/02/23 07:50 Dose: 1 patch Documented By: SOLOMON Mirtazapine (Mirtazapine 30 Mg Tablet) 30 mg PO BEDTIME [facility] Last Admin: 12/31/22 00:19 Dose: 30 mg Documented By: MACARIO Morphine Sulfate (Morphine Sulfate 2 Mg/Ml Cartridge) 2 mg IVPUSH Q3H PRN; Protocol PRN Reason: Pain, Severe (Pain Scale 7-10) Last Admin: 01/02/23 07:46 Dose: 2 mg Documented By: SOLOMON Omeprazole (Omeprazole 20 Mg Capsule.Dr) 20 mg PO BID [facility] Last Admin: 01/02/23 07:50 Dose: 20 mg Documented By: SOLOMON Ondansetron HCl (Ondansetron Hcl 4 Mg/2 Ml Vial) 4 mg IVPUSH Q8H PRN PRN Reason: Nausea and Vomiting Pharmacy Consult (Consult Rx Vancomycin Dosing) 1 each MISCELLANE DAILY PRN PRN Reason: Consult order Propranolol HCl (Propranolol Hcl La 60 Mg Cap.Sa.24h) 120 mg PO DAILY [facility]; Protocol Last Admin: 01/02/23 07:50 Dose: 120 mg Documented By: SOLOMON Risperidone (Risperidone 2 Mg Tablet) 2 mg PO BEDTIME [facility] Last Admin: 01/01/23 19:37 Dose: 2 mg Documented By: CASTILWilmer Sodium Chloride (0.9 % Sodium Chloride Flush 3 Ml Syringe) 3 ml IVFLUSH QSHIFT [facility] Last Admin: 01/02/23 06:58 Dose: Not Given Documented By: SOLOMON Non-Admin Reason: IV Running Tramadol HCl (Tramadol Hcl 50 Mg Tablet) 50 mg PO DAILY PRN PRN Reason: Pain, Moderate (Pain Scale 4-6 Last Admin: 01/01/23 14:08 Dose: 50 mg Documented By: UMBERTO Labs 01/02/23 06:08 01/02/23 06:08 Labs: Laboratory Results - last 24 hr 01/01/23 01/01/23 01/02/23 10:19 14:22 06:08 MCV 90.4 MCH 28.9 MCHC 32.0 RDW 15.6 Plt Count 254 MPV 11.6 Absolute Nucleated RBC 0.000 Nucleated RBC % (auto) 0.0 Anion Gap Estim Creat Clear Calc Estimated GFR Random Glucose Calcium Nasal Screen MRSA (PCR) NEGATIVE Nasal S. aureus Screen NEGATIVE Nasal MRSA/S.aureus Interp SEE NOTE Vancomycin Trough 6.4 L 01/02/23 01/02/23 06:08 06:08 MCV MCH MCHC RDW Plt Count MPV Absolute Nucleated RBC Nucleated RBC % (auto) Anion Gap 13 Estim Creat Clear Calc 83.9 83.9 Estimated GFR > 60 > 60 Random Glucose 110 Calcium 7.7 L D Nasal Screen MRSA (PCR) Nasal S. aureus Screen Nasal MRSA/S.aureus Interp Vancomycin Trough Microbiology Microbiology Results: Microbiology 12/30/22 17:32 Blood Culture - Preliminary Blood - Venous No growth after 48 hours. 12/30/22 17:26 Blood Culture - Preliminary Blood - Venous No growth after 48 hours. Assessment and Plan (1) Pneumonia: Status: Acute (2) Sepsis: Status: Acute Plan 57-year-old male with a PMH significant for?HIV, anxiety, depression, hx of hepatitis C, hx of lung abscess in 2020, and mild intermittent asthma who presents to the ED with?left-sided thoracic chest pain and worsening weakness. Pt will be admitted to the hospital for treatment and further evaluation of pneumonia that has failed outpatient therapy. Community-acquired pneumonia, Sepsis Patient 1st diagnosed with pneumonia on 12/11/2022 Failed outpatient therapy on cefuroxime and doxycycline CT?of chest suggestive of possible cystic change or necrosis, and increasing adjacent left lower lobe atelectasis/small infiltrate and in increasing small left pleural effusion continue IV ABX:? Vanco and Zosyn, started 12/30/2022,Follow cultures Pulmonology eval noted -continue current management with antibiotics if does not improve may need throacic surgery eval. ID recommends Check cryptococcal antigen. Check nares MRSA and stop Vancomycin if negative. IV Piperacillin/Tazobactam 3-5 days and then po Doxycycline or Ceftin for 14 day total Sepsis Patient met sepsis criteria:? Pneumonia, elevated WBC, ,tachycardia tachypnea, lactic acid WNL Patient will be receiving IV fluids and broad-spectrum antibiotics Moderate protein calorie malnutrition Patient cachectic, globally weak, says he has had decreased p.o. intake of both fluids and solids, recent weight loss Nutrition consult HTN Continue amlodipine Mild intermittent asthma Not in acute exacerbation Continue home inhalers HIV Latest CD4 count on 11/29/2022 was 377 Continue home Biktarvy Peripheral neuropathy Continue get Mood disorder Continue clonazepam, mirtazapine, and risperidone Full Code DVT Prophylaxis: Lovenox inpatient need:sepsis with community-acquired?pneumonia that has failed outpatient therapy with IV antibiotics,blood cutltures pending, might need thoracic surgery evalif not improve. Time Spent With Patient Time: Total time managing care of this patient today ____ minutes. Quality Stroke Does the patient have a stroke diagnosis?: No VTE Prior VTE?: No VTE Risk Level:: Medical - moderate - high VTE Device Contraindication: Treatment Not Indicated VTE Drug Contraindication: N/A - Med Ordered
[2023-01-02 11:08] LABS: Vancomycin Random 10.9 mcg/mL (15-20)
[2023-01-02] MEDS: 0.9 % Sodium Chloride Flush 3 ML SYRINGE IVFLUSH ×2 (14:33→21:00)
--- NOTE | 2023-01-02 14:55 | MHC.SPEECHCO ---
Pt is restful and declines offering of PO. Per chart review, Pt intake continues to be low.
--- NOTE | 2023-01-02 15:04 | MHC.CM.PN ---
pt recommending str spoke w/pt who reluctantly agrees to referrls dc plannerf for tomororw
--- NOTE | 2023-01-02 15:06 | PM.IDPN ---
Subjective Subjective Date of Service: 01/02/23 Critical Care Time (minutes): 15 Comment: He still has some productive phlegm. His WBC is down to 16.5 today. Objective Data Labs 01/02/23 06:08 01/02/23 06:08 Labs: Laboratory Results - last 24 hr 01/01/23 01/02/23 01/02/23 14:22 06:08 06:08 WBC 16.5 H RBC 4.25 L Hgb 12.3 L Hct 38.4 L MCV 90.4 MCH 28.9 MCHC 32.0 RDW 15.6 Plt Count 254 MPV 11.6 Absolute Nucleated RBC 0.000 Nucleated RBC % (auto) 0.0 Sodium 141 Potassium 3.5 Chloride 106 Carbon Dioxide 26 Anion Gap 13 BUN 7 L Creatinine 0.80 Estim Creat Clear Calc 83.9 Estimated GFR > 60 Random Glucose 110 Calcium 7.7 L D Nasal Screen MRSA (PCR) NEGATIVE Nasal S. aureus Screen NEGATIVE Nasal MRSA/S.aureus Interp SEE NOTE Random Vancomycin 01/02/23 01/02/23 06:08 10:25 WBC RBC Hgb Hct MCV MCH MCHC RDW Plt Count MPV Absolute Nucleated RBC Nucleated RBC % (auto) Sodium Potassium Chloride Carbon Dioxide Anion Gap BUN Creatinine 0.80 Estim Creat Clear Calc 83.9 Estimated GFR > 60 Random Glucose Calcium Nasal Screen MRSA (PCR) Nasal S. aureus Screen Nasal MRSA/S.aureus Interp Random Vancomycin 10.9 L Microbiology Microbiology Results: Microbiology 12/30/22 17:32 Blood - Venous Blood Culture - Preliminary No growth after 48 hours. 12/30/22 17:26 Blood - Venous Blood Culture - Preliminary No growth after 48 hours. Physical Exam Vital Signs: Vital Signs: Last Vital Signs Temp 98.8 F 01/02/23 11:38 Pulse 85 01/02/23 11:50 Resp 21 H 01/02/23 11:50 BP 146/90 H 01/02/23 07:38 Pulse Ox 93 01/02/23 07:38 O2 Del Method Nasal Cannula 01/02/23 07:38 O2 Flow Rate 4 01/02/23 07:38 BMI result Body Mass Index 20.3 Const: General: cooperative Eyes: General: appearance normal, both eyes and all related structures Resp: Effort & Inspection: decreased respiratory effort Cardio: Rate: regular rate Rhythm: regular rhythm GI: Palpation (GI): Soft to palpation and nontender Assessment and Plan Assessment and plan (1) Sepsis: Problem details: He still has weakness and leukocytosis lung source Status: Acute Assessment and Plan: Finish Zosyn ,now 11/14 and no subsequent antibiotics (2) Pneumonia: Status: Acute Time Spent With Patient Time: Total time managing care of this patient today ____ minutes.
[2023-01-02] MEDS: Acetaminophen 325 MG TABLET 650 MG PO (18:24)
[2023-01-02] MEDS: risperiDONE 2 MG TABLET PO (20:58)
[2023-01-02] MEDS: Enoxaparin Sodium 40 MG/0.4 ML SYRINGE SUBCUT (22:14)
[2023-01-03] VITALS (30 sets, daily range): BP systolic 60–138; BP diastolic 31–97; PULSE 69–90; RESP 18–28; TEMP 34.9–38.8; O2SAT 82–100
--- NOTE | 2023-01-03 | ECG_ITS ---
Test Reason : Elevated trop Blood Pressure : / mmHG Vent. Rate : 072 BPM Atrial Rate : 072 BPM P-R Int : 130 ms QRS Dur : 112 ms QT Int : 360 ms P-R-T Axes : 071 066 013 degrees QTc Int : 394 ms Normal sinus rhythm Incomplete right bundle branch block Nonspecific T wave changes Abnormal ECG When compared to the previous EKG of No significant changes seen Referred By: Danica Dejesus Electronically Signed By:Daniel Keller
[2023-01-03] MEDS: Morphine Sulfate 2 MG/ML CARTRIDGE IVPUSH ×4 (01:24→16:32)
[2023-01-03] MEDS: Albuterol/Iprat 2.5/0.5MG 3 ML AMPUL.NEB INHALE ×6 (01:38→20:16)
[2023-01-03] MEDS: Piperacillin Sodium/Tazobactam 4.5 GM in 0.9 % Sodium Chloride 100 ML IV ×4 (02:34→22:30)
[2023-01-03 07:22] LABS: Creatinine Clr Calc Pharmacy 93.3; Estimated Glomerular Filt Rate > 60
[2023-01-03] MEDS: Fluticasone Propionate 100 MCG BLST.W.DEV 1 PUFF INHALE (07:52)
[2023-01-03] MEDS: Bictegrav/Emtricit/Tenofov Ala TABLET 1 TAB PO (08:23)
[2023-01-03] MEDS: clonazePAM 1 MG TABLET PO (08:23)
[2023-01-03] MEDS: Propranolol HCL LA 60 MG CAP.SA.24H 120 MG PO (08:23)
[2023-01-03] MEDS: Gabapentin 600 MG TABLET PO ×2 (08:23→14:56)
[2023-01-03] MEDS: Omeprazole 20 MG CAPSULE.DR PO (08:23)
[2023-01-03] MEDS: Lidocaine 4 % Patch ADH..PATCH 1 PATCH TRANSDERMA (08:23)
[2023-01-03] MEDS: Latanoprost 0.005 % Ophth Sol 2.5 ML DROPS 1 DROP EYE-BOTH (08:24)
[2023-01-03] MEDS: 0.9 % Sodium Chloride Flush 3 ML SYRINGE IVFLUSH ×3 (08:26→23:29)
--- NOTE | 2023-01-03 10:29 | HO.PM.IMPN ---
Subjective Subjective Date of Service: 01/03/23 Interval History: f/u on PNA in HIV pt, he has pain in his side and seem more hypoxic today, requiring more O2 Physical Exam Vital Signs: Vital Signs: Last Vital Signs Temp 97 F 01/03/23 07:19 Pulse 82 01/03/23 07:53 Resp 22 H 01/03/23 07:53 BP 105/61 01/03/23 07:19 Pulse Ox 96 01/03/23 07:19 O2 Del Method Oxymask 01/03/23 07:19 O2 Flow Rate 9 01/03/23 07:19 BMI result Body Mass Index 20.3 Const: Other: General: AO X 3, in mild respiratory distress Resp: CTA bilateral CVS: S1,S2,RRR GI: +BS, NT, no distention Skin: No rash Neuro: motor grossly intact Psych: appropriate affect Objective Data Active Medications Acetaminophen (Acetaminophen 325 Mg Tablet) 650 mg PO Q4H PRN PRN Reason: Pain, Mild (Pain Scale 1-3) Last Admin: 01/02/23 18:24 Dose: 650 mg Documented By: SOLOMON Albuterol/Ipratropium (Albuterol/Iprat 2.5/0.5mg 3 Ml Ampul.Neb) 3 ml INHALE RQ4H WHILE AWAKE [facility] Last Admin: 01/03/23 07:51 Dose: 3 ml Documented By: HUSSEIN Albuterol/Ipratropium (Albuterol/Iprat 2.5/0.5mg 3 Ml Ampul.Neb) 3 ml INHALE Q4H PRN PRN Reason: Wheezing Last Admin: 01/03/23 01:38 Dose: 3 ml Documented By: FINJERAD Benzonatate (Benzonatate 100 Mg Capsule) 200 mg PO TID PRN PRN Reason: Cough Last Admin: 01/02/23 16:36 Dose: 200 mg Documented By: SOLOMON Bictegravir/Emtricitabine/Tenofovir (Bictegrav/Emtricit/Tenofov Ala Tablet) 1 tab PO DAILY [facility] Last Admin: 01/03/23 08:23 Dose: 1 tab Documented By: SOLOMON Clonazepam (Clonazepam 1 Mg Tablet) 1 mg PO DAILY [facility] Last Admin: 01/03/23 08:23 Dose: 1 mg Documented By: SOLOMON Docusate Sodium (Docusate Sodium 100 Mg Capsule) 100 mg PO DAILY PRN PRN Reason: Constipation Enoxaparin Sodium (Enoxaparin Sodium 40 Mg/0.4 Ml Syringe) 40 mg SUBCUT Q24H [facility] Last Admin: 01/02/23 22:14 Dose: 40 mg Documented By: AIDE Fluticasone Propionate (Fluticasone Propionate 100 Mcg Blst.W.Dev) 1 puff INHALE RBID [facility] Last Admin: 01/03/23 07:52 Dose: 1 puff Documented By: HUSSEIN Gabapentin (Gabapentin 600 Mg Tablet) 600 mg PO TID [facility] Last Admin: 01/03/23 08:23 Dose: 600 mg Documented By: SOLOMON Piperacillin Sod/Tazobactam (Sod 4.5 gm/ Sodium Chloride) 100 mls @ 200 mls/hr IV Q6H [facility] Last Infusion: 01/03/23 08:55 Dose: 0 mls/hr Documented By: SOLOMON Latanoprost (Latanoprost 0.005 % Ophth Carol 2.5 Ml Drops) 1 drop EYE-BOTH DAILY [facility] Last Admin: 01/03/23 08:24 Dose: 1 drop Documented By: SOLOMON Lidocaine (Lidocaine 4 % Patch Adh..Patch) 1 patch TRANSDERMA DAILY [facility]; Protocol Last Admin: 01/03/23 08:23 Dose: 1 patch Documented By: SOLOMON Mirtazapine (Mirtazapine 30 Mg Tablet) 30 mg PO BEDTIME [facility] Last Admin: 12/31/22 00:19 Dose: 30 mg Documented By: MACARIO Morphine Sulfate (Morphine Sulfate 2 Mg/Ml Cartridge) 2 mg IVPUSH Q3H PRN; Protocol PRN Reason: Pain, Severe (Pain Scale 7-10) Last Admin: 01/03/23 06:16 Dose: 2 mg Documented By: AIDE Omeprazole (Omeprazole 20 Mg Capsule.) 20 mg PO BID [facility] Last Admin: 01/03/23 08:23 Dose: 20 mg Documented By: SOLOMON Ondansetron HCl (Ondansetron Hcl 4 Mg/2 Ml Vial) 4 mg IVPUSH Q8H PRN PRN Reason: Nausea and Vomiting Pharmacy Consult (Consult Rx Vancomycin Dosing) 1 each MISCELLANE DAILY PRN PRN Reason: Consult order Propranolol HCl (Propranolol Hcl La 60 Mg Cap.Sa.24h) 120 mg PO DAILY [facility]; Protocol Last Admin: 01/03/23 08:23 Dose: 120 mg Documented By: SOLOMON Risperidone (Risperidone 2 Mg Tablet) 2 mg PO BEDTIME [facility] Last Admin: 01/02/23 20:58 Dose: 2 mg Documented By: WILLIQC Sodium Chloride (0.9 % Sodium Chloride Flush 3 Ml Syringe) 3 ml IVFLUSH QSHIFT [facility] Last Admin: 01/03/23 08:26 Dose: 3 ml Documented By: SOLOMON Tramadol HCl (Tramadol Hcl 50 Mg Tablet) 50 mg PO DAILY PRN PRN Reason: Pain, Moderate (Pain Scale 4-6 Last Admin: 01/01/23 14:08 Dose: 50 mg Documented By: UMBERTO Labs 01/02/23 06:08 01/03/23 06:03 Labs: Laboratory Results - last 24 hr 01/02/23 01/03/23 10:25 06:03 Estim Creat Clear Calc 93.3 Estimated GFR > 60 Random Vancomycin 10.9 L Assessment and Plan (1) Pneumonia: Status: Acute (2) Sepsis: Status: Acute Plan 57-year-old male with a PMH significant for?HIV, anxiety, depression, hx of hepatitis C, hx of lung abscess in 2020, and mild intermittent asthma who presents to the ED with?left-sided thoracic chest pain and worsening weakness. Pt will be admitted to the hospital for treatment and further evaluation of pneumonia that has failed outpatient therapy. Community-acquired pneumonia, Sepsis Patient 1st diagnosed with pneumonia on 12/11/2022 Failed outpatient therapy on cefuroxime and doxycycline CT?of chest suggestive of possible cystic change or necrosis, and increasing adjacent left lower lobe atelectasis/small infiltrate and in increasing small left pleural effusion continue IV ABX:? Vanco and Zosyn, started 12/30/2022,Follow cultures Pulmonology eval noted -continue current management with antibiotics if does not improve may need throacic surgery eval. ID recommends Check cryptococcal antigen. Check nares MRSA and stop Vancomycin if negative. IV Piperacillin/Tazobactam 7 days and then po Doxycycline or Ceftin for 14 day total , 12/15 Sepsis--d/t to above, not yet resolved. Moderate protein calorie malnutrition Patient cachectic, globally weak, says he has had decreased p.o. intake of both fluids and solids, recent weight loss Nutrition consult HTN Continue amlodipine Mild intermittent asthma Not in acute exacerbation Continue home inhalers HIV Latest CD4 count on 11/29/2022 was 377 Continue home Biktarvy Peripheral neuropathy Continue get Mood disorder Continue clonazepam, mirtazapine, and risperidone Full Code DVT Prophylaxis: Lovenox inpatient need:sepsis d/t PNA, profound hypoxia and need IV Abx and moniotoring of respiratory status Time Spent With Patient Time: Total time managing care of this patient today ____ minutes. Quality Stroke Does the patient have a stroke diagnosis?: No VTE Prior VTE?: No VTE Risk Level:: Medical - moderate - high VTE Device Contraindication: Treatment Not Indicated VTE Drug Contraindication: N/A - Med Ordered
--- NOTE | 2023-01-03 12:17 | MHC.CLN ---
F/U DIET=REGULAR, NDD3 CONSISTENCY. ENSURE TID PROVIDES ADDITIONAL 1050 KCALS, 60 G PROTEIN. SIGNIFICANT WEIGHT LOSS X 11 MONTHS, -17.4% INTAKE IS POOR, 0-25%. FOLLOW FOR INTAKE, DIET ADVANCEMENT, DIET TOLERANCE.
--- NOTE | 2023-01-03 12:27 | MHC.CM.PN ---
Per MD rounds discharge is anticipated 1-2 days. Patient is being weaned from oxygen. PT recommends STR. Referrals have been sent. Patient has facilities following. DP STR via BLS.
--- NOTE | 2023-01-03 14:03 | MHC.SL.SWA ---
Addendum entered and electronically signed by Laura Hill MA, CCC-[employer] 01/03/23 14:15: D.S. Original Note: Speech Pathologist Impression: Dysphagia Risk of Aspiration Due to: Poor PO Intake Dysphasia Diet Status: Liquid Consistency and Strategies for Safe Swallow: Liquid Intake Recommendation: Thin Liquid Intake Strategies: Small Sips Double Swallow Solid Food Consistency: Dietary Recommendations: Chopped/Advanced (NDD3) Additional Modifications to Solid Foods: Oral Medication Intake: Whole with Liquid Please contact the pharmacy regarding appropriate crushable or liquid drug formulations that are available whenever modified delivery is recommended. Compensatory Strategies and Precautions to be Taken for Safe Swallow: Sitting Upright (90 deg) Double Swallow Small Bites and Sips Alternate Liquids/Solids Rate of Ingestion Change Supervision While Eating and Drinking for Safe Swallow: Total Supervision (1:1) Foods to Avoid: Swallowing Recommended Treatments: Compens. Strategy Educat. Recommendation for Speech: Inpatient Speech Therapy Comment: Recommend patient continue with CHOPPED/ADVANCED solids (NDD3), THIN liquids, and pills WHOLE w/ liquid. Recommend softer, easier to chew foods to promote esophageal clearance. Recommend supervision to provide cues to take small bites and sips. Precautions include sitting upright before and after meals, smaller portions, small bites/sips, alternating liquids with solids. [employer] to continue to follow. Croze Cutter Helper Clinican/Clinical Fellow: Yes: Mona Hale M.A., CF-[facility]
[2023-01-03] MEDS: Benzonatate 100 MG CAPSULE 200 MG PO (16:34)
[2023-01-03] MEDS: Etomidate 20 MG/10 ML VIAL IVPUSH (17:34)
[2023-01-03] MEDS: Rocuronium Bromide 50 MG/5 ML VIAL 40 MG IVPUSH (17:35)
--- NOTE | 2023-01-03 17:37 | PM.EVENT ---
Event Note Date of Service: 01/03/23 Event Note: called for sudden hypoxia while drinking orange juice, became hyopxic to 70s while on 100%, minimal to no gag with suction, came to mid 80s, but significnatly altered, plan for intubatino and transfer to ICU Time Spent With Patient Time: Total time managing care of this patient today ____ minutes.
[2023-01-03] MEDS: propofoL 1,000 MG/100 ML VIAL 10.62 MG IVCONT ×2 (17:46→23:28)
--- NOTE | 2023-01-03 17:46 | PC.NURSE ---
1720 pt rang pt sitting on side of bed gasping for air , lung sounds wet , pt able to speak and states he drank orange juice and it went down wrong way . Pt unable to clear secretions . 1722 vs 02 70 percent , , respiratory made aware and at bedside , rapid response called . 1723 pt put on non rebreather bp 195/195 02 92 percent . 1728 vs 171/124 02 92% HR 93 . vs 1730 183/95 02 90% HR 92 . 1734 pt given meds for intubation . 1736 vs 135/82 02 88% HR 86 . 1738 vs 123/72 HR84 02 98% intubation successful . pt brought down to ICU .
[2023-01-03 18:03] LABS: ABG Base Excess 3.6 mmol/L; ABG HCO3 30 mmol/L (22-26); ABG pCO2 52 mmHg (32-45); ABG pH 7.36 (7.35-7.45); ABG pO2 69 mmHg (83-108)
--- NOTE | 2023-01-03 18:29 | PC.NURSE ---
This RN responded to [employer] FICO BUSINESS ANALYST - patient awake with increased WOB on 100% NRB. Dr Mukherjee & PA at bedside for emergent intubation. Etomidate 20mg & Chalino 40mg administered for intubation. #8 ETT, 25cm @ lip inserted without complications. LS auscultated without complications. OGT inserted by IR RN. Patient transferred to ICU - Prop gtt ordered and administered for continued sedation. Pt placed on vent by RT AC 18/450/8/100%. CXR ordered and completed - see report. Sales Center Manager at bedside for emergent bronch. Current vitals HR 82 sinus, 18 RR, 90/58 (69), 97% on 100% Fio2. Handoff given to Katiuska BROWN.
[2023-01-03] MEDS: Phenylephrine HCL 20 MG in 0.9 % Sodium Chloride 250 ML 44.6 MG IVCONT (18:50)
[2023-01-03] MEDS: Norepinephrine Bitartrate/D5W 8 MG/250 ML PLAST..BAG 5.53 MG IVCONT (19:06)
--- NOTE | 2023-01-03 19:10 | W.PM.CCCN ---
History of Present Illness Data of Consult Service Date: 01/03/23 Requesting physician: Shawn Adorno Primary Care Provider: Akira Lobo MD [facility] Reason for consult: Aspiration, respiratory failure Patient is a 57-year-old male with a past medical history of HIV,? hepatitis-C, substance abuse,? hypertension, anxiety, depression,? and recent diagnosis of community-acquired pneumonia? who presented to the emergency room on 12/30/2022 complaining of left thoracic chest pain and worsening weakness admitted to medical floor for treatment and further evaluation of pneumonia that has failed outpatient therapy and treated with Zosyn since 12/30/2022 per ID? recommendation.? Today,? patient developed sudden hypoxia after drinking orange juice,? desatted to 70s on 100% non-rebreather, ? patient was altered,? unable to protect airway requiring emergent intubation? and transfer to ICU ? Laboratory data was significant for WBC 15.5, hemoglobin 11.2, BNP 410,? ALBUMIN 2.6.? ABGs:? 7.36/52/69/30 Chest xray:New dense opacification overlying the left upper hemithorax with obscuration of both lung bases. Review of Systems Review of Systems: Yes unobtainable due to endotracheal tube PMFSH Past Medical History Medical History Asthma Closed fracture of leg Depression Hemorrhoids Hepatitis C HIV (human immunodeficiency virus infection) Hypertension Kidney stones Pleuritic chest pain Pneumonia Substance abuse Surgical History Surgical History H/O hemorrhoidectomy Social History Social History Household Members: None Housing: Apartment Do you presently have visiting nurse or other home services: Yes ([employer]) Alcohol intake: never Patient Tobacco Use Status: Never used Tobacco Smoked in Last 30 Days: No Second Hand Smoke Exposure: No Use of substances other than those prescribed or required for medical reasons: No Currently Displaying Signs/Symptoms of Drug Intoxication Withdrawal: No Have you been hit, kicked, punched, or otherwise hurt by someone within the past year? If so, by whom?: No Do you feel safe in your current relationship?: Yes Is there a partner from a previous relationship who is making you feel unsafe now?: No Are you made to feel afraid or neglected: No Advance Directives: Yes Advance Directives on File: Yes Advance Directives Date on File: 04/25/21 Do you have thoughts of harming others: None Do you have a plan to hurt others: No Plan Recently lost weight without trying: Yes How much weight loss: 14-23 pounds Eating poorly because of decreased appetite: Yes Nutrition screen score: 5 Nutrition Risks: Poor intake 0-25% >4 days service: No Current occupational status: disabled Meds Allergies Allergy/AdvReac Type Severity Reaction Status Date / Time Seasonal Allergies Allergy Intermediate Eye Verified 12/20/22 07:44 Drainage codeine Allergy Mild RASH Verified 12/20/22 07:44 [From Tylenol-Codeine #3] levofloxacin [From Levaquin] Allergy Mild Rash Verified 12/20/22 07:44 metoclopramide [From Reglan] Allergy Mild Rash Verified 12/20/22 07:44 acetaminophen Allergy Unknown Unknown Verified 12/20/22 07:44 [Tylenol-Codeine #3] ibuprofen [From Motrin] Allergy Unknown Reflux Verified 12/20/22 07:44 Penicillins [PENICILLINS] Allergy Unknown Rash Verified 12/20/22 07:44 tramadol [From Ultram] AdvReac Mild Nausea and Verified 12/20/22 07:44 Vomiting Active Medications: Current Medications Albuterol/Ipratropium (Albuterol/Iprat 2.5/0.5mg 3 Ml Ampul.Neb) 3 ml INHALE RQ4H WHILE AWAKE REPLACED BY [facility] Last Admin: 01/03/23 14:58 Dose: 3 ml Albuterol/Ipratropium (Albuterol/Iprat 2.5/0.5mg 3 Ml Ampul.Neb) 3 ml INHALE Q4H PRN PRN Reason: Wheezing Last Admin: 01/03/23 01:38 Dose: 3 ml Bictegravir/Emtricitabine/Tenofovir (Bictegrav/Emtricit/Tenofov Ala Tablet) 1 tab PO DAILY [facility] Last Admin: 01/03/23 08:23 Dose: 1 tab Chlorhexidine Gluconate (Chlorhexidine Gluc Oral Rinse 15 Ml Mouthwash) 15 ml BUCCAL TID REPLACED BY [facility] Enoxaparin Sodium (Enoxaparin Sodium 40 Mg/0.4 Ml Syringe) 40 mg SUBCUT Q24H [facility] Last Admin: 01/02/23 22:14 Dose: 40 mg Famotidine (Famotidine/Pf 20 Mg/2 Ml Vial) 20 mg IVPUSH DAILY [facility]PLACED BY [facility] Piperacillin Sod/Tazobactam (Sod 4.5 gm/ Sodium Chloride) 100 mls @ 200 mls/hr IV Q6H [facility] Last Infusion: 01/03/23 15:35 Dose: Infused Propofol (Diprivan) 1,000 mg in 100 mls @ 0 mls/hr IVCONT .Q0M [facility]; Protocol Last Titration: 01/03/23 18:37 Dose: 30 mcg/kg/min, 10.62 mls/hr Phenylephrine HCl 20 mg/ (Sodium Chloride) 252 mls @ 0 mls/hr IVCONT .Q0M [facility]; Protocol Last Titration: 01/03/23 18:58 Dose: 3 mcg/kg/min, 133.81 mls/hr Norepinephrine Bitartrate (Levophed) 8 mg in 250 mls @ 0 mls/hr IVCONT .Q0M [facility]; Protocol Last Admin: 01/03/23 19:06 Dose: 0.05 mcg/kg/min, 5.53 mls/hr Latanoprost (Latanoprost 0.005 % Ophth Carol 2.5 Ml Drops) 1 drop EYE-BOTH DAILY [facility]PLAC[facility] Last Admin: 01/03/23 08:24 Dose: 1 drop Sodium Chloride (0.9 % Sodium Chloride Flush 3 Ml Syringe) 3 ml IVFLUSH QSHIFT REPLACED BY [facility] Last Admin: 01/03/23 14:56 Dose: 3 ml Home Medications Medication Instructions Recorded Confirmed Last Taken Type amlodipine 5 mg tablet 5 mg PO DAILY 12/30/22 12/30/22 Unknown History bictegravir 50 mg-emtricitabine 1 tab PO DAILY 12/30/22 12/30/22 Unknown History 200 mg-tenofovir alafenam 25 mg tablet (Biktarvy) celecoxib 200 mg capsule 200 mg PO BID 12/30/22 12/30/22 Unknown History clonazepam 1 mg tablet 1 mg PO DAILY 12/30/22 12/30/22 Unknown History fluticasone propionate 110 1 puff inhalation BID 12/30/22 12/30/22 Unknown History mcg/actuation HFA aerosol inhaler (Flovent HFA) gabapentin 600 mg tablet 600 mg PO TID 12/30/22 12/30/22 Unknown History ibuprofen 800 mg tablet 800 mg PO Q8H PRN pain 12/30/22 12/30/22 Unknown History latanoprost 0.005 % eye drops 1 drp ophthalmic (eye) DAILY 12/30/22 12/30/22 Unknown History mirtazapine 30 mg tablet 60 mg PO BEDTIME 12/30/22 12/31/22 Unknown History pantoprazole 40 mg tablet,delayed 40 mg PO DAILY@0630 12/30/22 12/31/22 Unknown History release propranolol 120 mg capsule,24 120 mg PO DAILY 12/30/22 12/30/22 Unknown History hr,extended release risperidone 2 mg tablet 2 mg PO BEDTIME 12/30/22 12/30/22 Unknown History tramadol 50 mg tablet 50 mg PO DAILY PRN Pain 12/30/22 12/30/22 Unknown History Physical Exam Vital Signs: Vital Signs: Last Vital Signs Temp 97.1 F 01/03/23 16:00 Pulse 74 01/03/23 19:06 Resp 18 01/03/23 18:00 BP 103/66 01/03/23 19:06 Pulse Ox 92 01/03/23 18:00 O2 Del Method Mechanical Ventil ation 01/03/23 18:00 O2 Flow Rate 5 01/03/23 16:00 FiO2 100 01/03/23 18:00 BMI result Body Mass Index 20.3 ?General:?Patient intubated ?HEENT:? Head is normocephalic, atraumatic, pupils equal round reactive to light accommodation bilaterally.? Extraocular movements appear intact.? Buccal mucosa is dry, Neck is supple ?Cardiac:? Clear S1-S2, no murmurs rubs or gallops. ?Pulmonary:? patient rhonchi throughout. ?Abdomen:? ?Abdomen soft, non-tender, non-distended. Normal bowel sounds. No pulsatile mass. No hepatosplenomegaly. ?Musculoskeletal:? Moving all 4 extremities randomly. . ?Neurologic:? No focal deficits noted ?Skin:? Intact, no lesions, edema, erythema, clubbing or cyanosis.? No ulcers. Vascular:? 2+ pulses upper and lower extremities distally.? Results Labs 01/02/23 06:08 01/03/23 06:03 Labs: BMP 01/03/23 06:03 Creatinine 0.72 Microbiology Microbiology Results: Microbiology 12/30/22 17:32 Blood - Venous Blood Culture - Preliminary No growth after 48 hours. 12/30/22 17:26 Blood - Venous Blood Culture - Preliminary No growth after 48 hours. Assessment and Plan (1) Acute respiratory failure with hypoxia: Status: Acute (2) Pneumonia: Status: Acute (3) Sepsis: Status: Acute (4) Loculated pleural effusion: Status: Acute Plan Neuro:?? ?No acute issues?? Cardiac:?? ?Hypotension:? hypotension likely related to sedation,? patient lactic is negative.? Wean off pressors as tolerated Pulmonary: ?Acute? hypoxic respiratory failure: ? patient aspirated while drinking orange juice. ? Patient is now intubated, Chest x-ray with new dense opacification of left? upper hemithorax.? Will obtain chest CT.? patient on broad-spectrum antibiotics.? Will obtain new blood cultures.? Continue Zosyn Renal:? ?No acute issues GI:?? ?No acute issues Endo:?No acute issues ID:?sepsis/ Pneumonia-? patient was diagnosed with community-acquired pneumonia that failed outpatient treatment, has been treated with Zosyn since 12/30/2022.? Today had aspiration event,? will continue to treat with Zosyn.? Blood cultures pending? Heme/Onc:? No acute issues. Psych:? No acute issues. Miscellaneous:? No acute issues. Prophylaxis:? Lovenox, ? GI: famotidine CODE: FULL Critical care time: 90x minutes of critical care time? ?Case discussed with attending Dr. Monet? Time Spent With Patient Time: Total time managing care of this patient today ____ minutes.
[2023-01-03 19:45] LABS: Basophils Absolute Auto 0.1 X10*3/uL (0.0-0.2); Basophils Percent Auto 0.4 % (0-2); Eosinophils Absolute Auto 0.1 X10*3/uL (0.0-0.4); Eosinophils Percent Auto 0.5 % (0-4); Hematocrit 34.9 % (42.0-52.0); Hemoglobin 11.2 g/dl (14.0-18.0); Imm Gran Abs Auto 0.08 X10*3/uL (0.00-0.03); Imm Gran Pct Auto 0.5 % (0.0-0.4); Lymphocytes Absolute Auto 1.5 X10*3/uL (1.2-4.9); Lymphocytes Percent Auto 9.8 % (20-40); Mean Corpuscular HGB Conc 32.1 g/dl (31.0-36.0); Mean Corpuscular Hemoglobin 28.8 pg (27.0-33.0); Mean Corpuscular Volume 89.7 fL (80.0-98.0); Mean Platelet Volume 11.3 fL (9.4-12.4); Monocytes Absolute Auto 1.7 X10*3/uL (0.1-1.2); Monocytes Percent Auto 11.2 % (2-11); Neutrophils Percent Auto 77.6 % (45-73); Platelet Count 388 X10*3/uL (160-400); Red Blood Count 3.89 X10*6/uL (4.60-5.80); Red Cell Distribution Width 15.7 % (11.0-16.0); SCAN SMEAR FLAG 1; White Blood Count 15.5 X10*3/uL (4.8-10.8)
[2023-01-03 19:48] LABS: MANUAL DIFF FLAG NO
[2023-01-03 20:04] LABS: Lactic Acid 1.9 mmol/L (0.5-2.0)
[2023-01-03 20:11] LABS: B Type Natriuretic Peptide 410 pg/mL (<100)
[2023-01-03 20:12] LABS: Alanine Aminotransferase 10 U/L (0-40); Albumin Level 2.6 g/dL (3.5-5.0); Alkaline Phosphatase 48 U/L (39-117); Anion Gap 15 (12-20); Aspartate Amino Transferase 18 U/L (5-37); Bilirubin Total 0.7 mg/dL (0.0-1.0); Blood Urea Nitrogen 15 mg/dL (9-16); Calcium 7.7 mg/dL (8.4-10.2); Carbon Dioxide 26 mmol/L (22-29); Chloride 103 mmol/L (96-108); Creatinine Clr Calc Pharmacy 71.4; Estimated Glomerular Filt Rate > 60; Glucose Random 174 mg/dL (60-115); Potassium 4.1 mmol/L (3.3-5.1); Sodium 140 mmol/L (135-145); Total Protein 5.5 g/dL (6.5-8.0)
[2023-01-03] MEDS: Phenylephrine HCL 20 MG in 0.9 % Sodium Chloride 250 ML 133.81 MG IVCONT ×2 (20:27→22:37)
[2023-01-03 20:34] LABS: Troponin-I High Sensitivity 126.8 ng/L (<3.5-35.0)
[2023-01-03] MEDS: Albumin Human 25 % 100 ML IV (21:44)
[2023-01-03] MEDS: Chlorhexidine Gluc Oral Rinse 15 ML MOUTHWASH BUCCAL (21:59)
[2023-01-03] MEDS: Acetaminophen Oral Liquid 650 MG/20.3 ML SOLUTION OG-TUBE (22:22)
[2023-01-03] MEDS: Enoxaparin Sodium 40 MG/0.4 ML SYRINGE SUBCUT (22:46)
[2023-01-04] VITALS (52 sets, daily range): BP systolic 75–134; BP diastolic 41–86; PULSE 64–74; RESP 16–25; TEMP 35–38.9; O2SAT 95–99; BMI 24.3
[2023-01-04 00:22] LABS: Troponin-I High Sensitivity 112.9 ng/L (<3.5-35.0)
[2023-01-04] MEDS: Phenylephrine HCL 20 MG in 0.9 % Sodium Chloride 250 ML 133.81 MG IVCONT (00:39)
[2023-01-04 01:28] LABS: ABG Refer to POC result
[2023-01-04] MEDS: Albumin Human 25 % 100 ML IV ×3 (02:10→13:26)
[2023-01-04] MEDS: Phenylephrine HCL 20 MG in 0.9 % Sodium Chloride 250 ML 89.21 MG IVCONT (02:52)
[2023-01-04] MEDS: Piperacillin Sodium/Tazobactam 4.5 GM in 0.9 % Sodium Chloride 100 ML IV ×4 (03:20→20:06)
[2023-01-04 05:16] LABS: VBG Base Excess 4.5 mmol/L; VBG HCO3 26 mmol/L (22-26); VBG pCO2 29 mmHg; VBG pH 7.56 (7.32-7.43); VBG pO2 61 mmHg
[2023-01-04 05:17] LABS: Venous Blood Gas Refer to POC result
[2023-01-04 05:35] LABS: Basophils Percent Auto 0.2 % (0-2); Eosinophils Absolute Auto 0.1 X10*3/uL (0.0-0.4); Eosinophils Percent Auto 0.8 % (0-4); Hematocrit 31.5 % (42.0-52.0); Hemoglobin 10.2 g/dl (14.0-18.0); Imm Gran Abs Auto 0.06 X10*3/uL (0.00-0.03); Imm Gran Pct Auto 0.4 % (0.0-0.4); Lymphocytes Absolute Auto 2.2 X10*3/uL (1.2-4.9); Lymphocytes Percent Auto 15.9 % (20-40); MANUAL DIFF FLAG SCAN; Mean Corpuscular HGB Conc 32.4 g/dl (31.0-36.0); Mean Corpuscular Hemoglobin 28.4 pg (27.0-33.0); Mean Corpuscular Volume 87.7 fL (80.0-98.0); Mean Platelet Volume 11.3 fL (9.4-12.4); Monocytes Absolute Auto 1.8 X10*3/uL (0.1-1.2); Monocytes Percent Auto 12.8 % (2-11); Neutrophils Absolute Auto 9.8 x10*3/uL (2.0-8.3); Neutrophils Percent Auto 69.9 % (45-73); Platelet Count 305 X10*3/uL (160-400); Red Blood Count 3.59 X10*6/uL (4.60-5.80); Red Cell Distribution Width 15.6 % (11.0-16.0); SCAN SMEAR FLAG 1
[2023-01-04] MEDS: propofoL 1,000 MG/100 ML VIAL 10.62 MG IVCONT ×3 (05:53→21:53)
[2023-01-04 05:54] LABS: Anion Gap 13 (12-20); Blood Urea Nitrogen 12 mg/dL (9-16); Calcium 7.7 mg/dL (8.4-10.2); Carbon Dioxide 25 mmol/L (22-29); Chloride 109 mmol/L (96-108); Creatinine Clr Calc Pharmacy 95.2; Estimated Glomerular Filt Rate > 60; Glucose Random 129 mg/dL (60-115); Magnesium 1.9 mg/dL (1.6-2.6); Phosphorus 2.5 mg/dL (2.7-4.5); Potassium 2.9 mmol/L (3.3-5.1); SLIDE REVIEW VERIFIED; Sodium 144 mmol/L (135-145)
[2023-01-04] MEDS: Phenylephrine HCL 20 MG in 0.9 % Sodium Chloride 250 ML 66.91 MG IVCONT (05:58)
[2023-01-04] MEDS: Potassium Phosphate/NS 15 MMOL/250 ML PLAST..BAG 62.5 MMOL IV (06:29)
[2023-01-04] MEDS: Potassium Chloride Packet 20 MEQ PACKET 40 MEQ OG-TUBE (06:29)
[2023-01-04] MEDS: Albuterol/Iprat 2.5/0.5MG 3 ML AMPUL.NEB INHALE ×4 (08:06→20:14)
[2023-01-04] MEDS: Famotidine/PF 20 MG/2 ML VIAL IVPUSH (08:20)
[2023-01-04] MEDS: Chlorhexidine Gluc Oral Rinse 15 ML MOUTHWASH BUCCAL ×3 (08:20→20:10)
[2023-01-04] MEDS: 0.9 % Sodium Chloride Flush 3 ML SYRINGE IVFLUSH ×2 (08:21→14:37)
--- NOTE | 2023-01-04 10:15 | MHC.CLN ---
F/U PT IS INTUBATED AND SEDATED DISCUSSED AT ROUNDS WITH MD PT TO REMAIN NPO FOR TODAY SEE ALSO FULL CLINICAL NUTRITION ASSESSMENT DATED 01/01/23 PT IS MODERATELY MALNOURISHED CONSULT RD IF TF NEEDED FOLLOWING WITH TEAM
[2023-01-04] MEDS: fentaNYL citrate/NS 1,000 MCG/100 ML PLAST..BAG 2.5 MCG IVCONT (10:24)
--- NOTE | 2023-01-04 11:05 | HO.THORCONS ---
History of Present Illness Consult details Consult date: 01/04/23 Narrative: Chart was reviewed and patient evaluated. Patient is currently on the ventilator and noncommunicative secondary to sedation. I examined the patient and reviewed the chart and radiographic studies; pt. has a multiloculated left empyema. He has marked atelectasis of his left lung and question of a left lingular abscess. PMFSH Past Medical History Medical History Asthma Closed fracture of leg Depression Hemorrhoids Hepatitis C HIV (human immunodeficiency virus infection) Hypertension Kidney stones Pleuritic chest pain Pneumonia Substance abuse Surgical History Surgical History H/O hemorrhoidectomy Social History Social History Household Members: None Housing: Apartment Do you presently have visiting nurse or other home services: Yes ([employer]) Alcohol intake: never Patient Tobacco Use Status: Never used Tobacco Smoked in Last 30 Days: No Second Hand Smoke Exposure: No Use of substances other than those prescribed or required for medical reasons: No Currently Displaying Signs/Symptoms of Drug Intoxication Withdrawal: No Have you been hit, kicked, punched, or otherwise hurt by someone within the past year? If so, by whom?: No Do you feel safe in your current relationship?: Yes Is there a partner from a previous relationship who is making you feel unsafe now?: No Are you made to feel afraid or neglected: No Advance Directives: Yes Advance Directives on File: Yes Advance Directives Date on File: 04/25/21 Do you have thoughts of harming others: None Do you have a plan to hurt others: No Plan Recently lost weight without trying: Yes How much weight loss: 14-23 pounds Eating poorly because of decreased appetite: Yes Nutrition screen score: 5 Nutrition Risks: Poor intake 0-25% >4 days service: No Current occupational status: disabled Meds Allergies Allergy/AdvReac Type Severity Reaction Status Date / Time Seasonal Allergies Allergy Intermediate Eye Verified 12/20/22 07:44 Drainage codeine Allergy Mild RASH Verified 12/20/22 07:44 [From Tylenol-Codeine #3] levofloxacin [From Levaquin] Allergy Mild Rash Verified 12/20/22 07:44 metoclopramide [From Reglan] Allergy Mild Rash Verified 12/20/22 07:44 acetaminophen Allergy Unknown Unknown Verified 12/20/22 07:44 [Tylenol-Codeine #3] ibuprofen [From Motrin] Allergy Unknown Reflux Verified 12/20/22 07:44 Penicillins [PENICILLINS] Allergy Unknown Rash Verified 12/20/22 07:44 tramadol [From Ultram] AdvReac Mild Nausea and Verified 12/20/22 07:44 Vomiting Active Medications: Current Medications Albuterol/Ipratropium (Albuterol/Iprat 2.5/0.5mg 3 Ml Ampul.Neb) 3 ml INHALE RQ4H WHILE AWAKE [facility] Last Admin: 01/04/23 08:06 Dose: 3 ml Albuterol/Ipratropium (Albuterol/Iprat 2.5/0.5mg 3 Ml Ampul.Neb) 3 ml INHALE Q4H PRN PRN Reason: Wheezing Last Admin: 01/03/23 01:38 Dose: 3 ml Bictegravir/Emtricitabine/Tenofovir (Bictegrav/Emtricit/Tenofov Ala Tablet) 1 tab PO DAILY [facility] Last Admin: 01/04/23 09:38 Dose: Not Given Chlorhexidine Gluconate (Chlorhexidine Gluc Oral Rinse 15 Ml Mouthwash) 15 ml BUCCAL TID [facility] Last Admin: 01/04/23 08:20 Dose: 15 ml Enoxaparin Sodium (Enoxaparin Sodium 40 Mg/0.4 Ml Syringe) 40 mg SUBCUT Q24H [facility] Last Admin: 01/03/23 22:46 Dose: 40 mg Famotidine (Famotidine/Pf 20 Mg/2 Ml Vial) 20 mg IVPUSH DAILY [facility] Last Admin: 01/04/23 08:20 Dose: 20 mg Piperacillin Sod/Tazobactam (Sod 4.5 gm/ Sodium Chloride) 100 mls @ 200 mls/hr IV Q6H [facility] Last Infusion: 01/04/23 09:24 Dose: Infused Propofol (Diprivan) 1,000 mg in 100 mls @ 0 mls/hr IVCONT .Q0M [facility]; Protocol Last Admin: 01/04/23 05:53 Dose: 30 mcg/kg/min, 10.62 mls/hr Phenylephrine HCl 20 mg/ (Sodium Chloride) 252 mls @ 0 mls/hr IVCONT .Q0M [facility]; Protocol Last Titration: 01/04/23 06:06 Dose: Infused Norepinephrine Bitartrate (Levophed) 8 mg in 250 mls @ 0 mls/hr IVCONT .Q0M [facility]; Protocol Last Titration: 01/04/23 07:40 Dose: 0.15 mcg/kg/min, 16.59 mls/hr Albumin Human (Kedbumin 25 %) 100 mls @ 100 mls/hr IV Q6H [facility] Stop: 01/04/23 15:29 Last Infusion: 01/04/23 09:24 Dose: Infused Fentanyl (Sublimaze/Ns) 1,000 mcg in 100 mls @ 0 mls/hr IVCONT .Q0M [facility]; Protocol Last Admin: 01/04/23 10:24 Dose: 25 mcg/hr, 2.5 mls/hr Latanoprost (Latanoprost 0.005 % Ophth Carol 2.5 Ml Drops) 1 drop EYE-BOTH DAILY [facility] Last Admin: 01/04/23 09:38 Dose: Not Given Naloxone HCl (Naloxone Hcl 0.4 Mg/Ml Vial) 0.2 mg IVPUSH Q2M PRN PRN Reason: Excessive sedation or RR < 8 Sodium Chloride (0.9 % Sodium Chloride Flush 3 Ml Syringe) 3 ml IVFLUSH QSHIFT [facility] Last Admin: 01/04/23 08:21 Dose: 3 ml Home Medications Medication Instructions Recorded Confirmed Last Taken Type amlodipine 5 mg tablet 5 mg PO DAILY 12/30/22 12/30/22 Unknown History bictegravir 50 mg-emtricitabine 1 tab PO DAILY 12/30/22 12/30/22 Unknown History 200 mg-tenofovir alafenam 25 mg tablet (Biktarvy) celecoxib 200 mg capsule 200 mg PO BID 12/30/22 12/30/22 Unknown History clonazepam 1 mg tablet 1 mg PO DAILY 12/30/22 12/30/22 Unknown History fluticasone propionate 110 1 puff inhalation BID 12/30/22 12/30/22 Unknown History mcg/actuation HFA aerosol inhaler (Flovent HFA) gabapentin 600 mg tablet 600 mg PO TID 12/30/22 12/30/22 Unknown History ibuprofen 800 mg tablet 800 mg PO Q8H PRN pain 12/30/22 12/30/22 Unknown History latanoprost 0.005 % eye drops 1 drp ophthalmic (eye) DAILY 12/30/22 12/30/22 Unknown History mirtazapine 30 mg tablet 60 mg PO BEDTIME 12/30/22 12/31/22 Unknown History pantoprazole 40 mg tablet,delayed 40 mg PO DAILY@0630 12/30/22 12/31/22 Unknown History release propranolol 120 mg capsule,24 120 mg PO DAILY 12/30/22 12/30/22 Unknown History hr,extended release risperidone 2 mg tablet 2 mg PO BEDTIME 12/30/22 12/30/22 Unknown History tramadol 50 mg tablet 50 mg PO DAILY PRN Pain 12/30/22 12/30/22 Unknown History Physical Exam Vital Signs: Vital Signs: Last Vital Signs Temp 101.7 F H 01/04/23 11:00 Pulse 69 01/04/23 11:00 Resp 16 01/04/23 11:00 BP 103/66 01/04/23 11:00 Pulse Ox 98 01/04/23 11:00 O2 Del Method Mechanical Ventil ation 01/04/23 11:00 O2 Flow Rate 5 01/03/23 16:00 FiO2 40 01/04/23 11:00 BMI result Body Mass Index 24.3 Chest: Other: On ventilator, noncommunicative. Thin male. Diminished breath sounds left. GI: Other: Abdomen soft Results Labs 01/04/23 05:08 01/04/23 05:08 Labs: Abnormal lab results 01/03/23 01/03/23 01/03/23 Range/Units 17:55 19:36 19:36 WBC 15.5 H (4.8-10.8) X10*3/uL RBC 3.89 L (4.60-5.80) X10*6/uL Hgb 11.2 L (14.0-18.0) g/dl Hct 34.9 L (42.0-52.0) % Immature Gran % (Auto) 0.5 H (0.0-0.4) % Neut % (Auto) 77.6 H (45-73) % Lymph % (Auto) 9.8 L (20-40) % [place] % (Auto) 11.2 H (2-11) % [place] # (Auto) 1.7 H (0.1-1.2) X10*3/uL Abs Immat Gran (auto) 0.08 H (0.00-0.03) X10*3/uL Absolute Neuts (auto) 12.0 H (2.0-8.3) x10*3/uL ABG pCO2 at Pt Temp 52 H (32-45) mmHg ABG pO2 at Pt Temp 69 L (83-108) mmHg ABG HCO3 30 H (22-26) mmol/L VBG pH (7.32-7.43) Potassium (3.3-5.1) mmol/L Chloride (96-108) mmol/L Random Glucose 174 H (60-115) mg/dL Calcium 7.7 L (8.4-10.2) mg/dL Phosphorus (2.7-4.5) mg/dL Troponin I High Sens (<3.5-35.0) ng/L B-Natriuretic Peptide (<100) pg/mL Total Protein 5.5 L (6.5-8.0) g/dL Albumin 2.6 L (3.5-5.0) g/dL 01/03/23 01/03/23 01/03/23 Range/Units 19:36 19:36 23:42 WBC (4.8-10.8) X10*3/uL RBC (4.60-5.80) X10*6/uL Hgb (14.0-18.0) g/dl Hct (42.0-52.0) % Immature Gran % (Auto) (0.0-0.4) % Neut % (Auto) (45-73) % Lymph % (Auto) (20-40) % [place] % (Auto) (2-11) % [place] # (Auto) (0.1-1.2) X10*3/uL Abs Immat Gran (auto) (0.00-0.03) X10*3/uL Absolute Neuts (auto) (2.0-8.3) x10*3/uL ABG pCO2 at Pt Temp (32-45) mmHg ABG pO2 at Pt Temp (83-108) mmHg ABG HCO3 (22-26) mmol/L VBG pH (7.32-7.43) Potassium (3.3-5.1) mmol/L Chloride (96-108) mmol/L Random Glucose (60-115) mg/dL Calcium (8.4-10.2) mg/dL Phosphorus (2.7-4.5) mg/dL Troponin I High Sens 126.8 H* D 112.9 H* (<3.5-35.0) ng/L B-Natriuretic Peptide 410 H (<100) pg/mL Total Protein (6.5-8.0) g/dL Albumin (3.5-5.0) g/dL 01/04/23 01/04/23 01/04/23 Range/Units 05:06 05:08 05:08 WBC 14.0 H (4.8-10.8) X10*3/uL RBC 3.59 L (4.60-5.80) X10*6/uL Hgb 10.2 L (14.0-18.0) g/dl Hct 31.5 L (42.0-52.0) % Immature Gran % (Auto) (0.0-0.4) % Neut % (Auto) (45-73) % Lymph % (Auto) 15.9 L (20-40) % [place] % (Auto) 12.8 H (2-11) % [place] # (Auto) 1.8 H (0.1-1.2) X10*3/uL Abs Immat Gran (auto) 0.06 H (0.00-0.03) X10*3/uL Absolute Neuts (auto) 9.8 H (2.0-8.3) x10*3/uL ABG pCO2 at Pt Temp (32-45) mmHg ABG pO2 at Pt Temp (83-108) mmHg ABG HCO3 (22-26) mmol/L VBG pH 7.56 H (7.32-7.43) Potassium 2.9 L D (3.3-5.1) mmol/L Chloride 109 H (96-108) mmol/L Random Glucose 129 H (60-115) mg/dL Calcium 7.7 L (8.4-10.2) mg/dL Phosphorus 2.5 L (2.7-4.5) mg/dL Troponin I High Sens (<3.5-35.0) ng/L B-Natriuretic Peptide (<100) pg/mL Total Protein (6.5-8.0) g/dL Albumin 3.0 L (3.5-5.0) g/dL Short CBC 01/03/23 01/04/23 Range/Units 19:36 05:08 WBC 15.5 H 14.0 H (4.8-10.8) X10*3/uL Hgb 11.2 L 10.2 L (14.0-18.0) g/dl Hct 34.9 L 31.5 L (42.0-52.0) % Plt Count 388 D 305 (160-400) X10*3/uL BMP 01/03/23 01/04/23 19:36 05:08 Sodium 140 144 Potassium 4.1 2.9 L D Chloride 103 109 H Carbon Dioxide 26 25 BUN 15 12 Creatinine 0.94 0.79 Calcium 7.7 L 7.7 L Liver Function 01/03/23 01/04/23 Range/Units 19:36 05:08 Total Bilirubin 0.7 (0.0-1.0) mg/dL AST 18 (5-37) U/L ALT 10 (0-40) U/L Alkaline Phosphatase 48 (39-117) U/L Albumin 2.6 L 3.0 L (3.5-5.0) g/dL All other labs normal. Assessment and Plan (1) Loculated pleural effusion: Status: Acute (2) Sepsis: Status: Acute (3) Pneumonia: Status: Acute (4) Lung abscess: Status: Acute (5) Abscess of lower lobe of right lung with pneumonia: Status: Acute (6) Abscess of left lung with pneumonia: Qualifiers: Lung location: upper lobe of lung Qualified Code(s): J85.1 - Abscess of lung with pneumonia Status: Acute Plan I discussed the patient with Dr. Monet, [employer], and in reviewing this case, the patient would most likely be best served with a decortication and empyemectomy and possible wedge resection of lung abscess of lingula. I will attempt to contact his sister Ute to review the case in obtain an operative consent through her. ([phone]). I called the number twice and no one answered. ; I once again attempted to call the patient's sister and received voicemail with no message able to be left. I Spoke with the patient's nurse last evening, and the tentative plan is to possibly extubate the patient this morning and if so, a consent can be obtained for surgery from the patient himself. Patient has been extubated and I was able to obtain consent from him regarding his left hemithorax empyema. Risks, benefits, alternatives of left thoracotomy, empyemectomy, decortication, possible lung resection were reviewed with the patient and included but not limited to bleeding, infection recurrence, numbness, pain, scarring and the patient wishes to proceed. All questions were answered. Consent was signed. Time Spent With Patient Time: Total time managing care of this patient today ____ minutes. Procedures Date of Service Date of Service: 01/04/23
--- NOTE | 2023-01-04 11:40 | PM.CCPN ---
Subjective Subjective Date of Service: 01/04/23 Interval History: 57-year-old gentleman with underlying HIV with CD4 of 377 on HAART, hep C, recently treated on outpatient basis for community-acquired pneumonia admitted on 12/30/2022 with left-sided chest pain and noted to have on CT chest left lower lobe abscess and loculated pleural effusion. Patient started empiric antibiotics and admitted to general medical [facility]. hospital course significant for worsening mental status and development of aspiration on 01/03/2023 requiring intubation and ventilatory support. Patient transferred to care unit. Bedside bronchoscopy with only minimal thin secretions. follow-up CT chest with worsening left-sided loculated pleural effusion. Evaluated by thoracic surgery and being planned for decortication. Overnight events as above. Critical Care Time (minutes): 60 Physical Exam Vital Signs: Vital Signs: Last Vital Signs Temp 101.7 F H 01/04/23 11:00 Pulse 69 01/04/23 11:00 Resp 16 01/04/23 11:00 BP 103/66 01/04/23 11:00 Pulse Ox 98 01/04/23 11:00 O2 Del Method Mechanical Ventil ation 01/04/23 11:00 O2 Flow Rate 5 01/03/23 16:00 FiO2 40 01/04/23 11:00 BMI result Body Mass Index 24.3 Const: General: no acute distress and other ( sedated on the vent) Nutritional Appearance: thin Eyes: Sclerae: sclerae normal EOM: EOMs intact bilaterally Neck: Neck: Yes no lymphadenopathy, Yes trachea midline and Yes supple Resp: Auscultation: other ( decrease left-sided air movement) Cardio: Rate: regular rate Rhythm: regular rhythm Heart sounds: no gallops, no murmurs and no rubs GI: Palpation (GI): Soft to palpation and Other GI palpation findings present ( Nontender) Auscultation: normal bowel sounds Extrem: General: Yes no pedal edema, No clubbing and No cyanosis Objective Data Labs 01/04/23 05:08 01/04/23 05:08 Labs: Laboratory Results - last 24 hr 01/03/23 01/03/23 01/03/23 17:55 19:36 19:36 WBC 15.5 H RBC 3.89 L Hgb 11.2 L Hct 34.9 L MCV 89.7 MCH 28.8 MCHC 32.1 RDW 15.7 Plt Count 388 D MPV 11.3 Immature Gran % (Auto) 0.5 H Neut % (Auto) 77.6 H Lymph % (Auto) 9.8 L [place] % (Auto) 11.2 H Eos % (Auto) 0.5 Baso % (Auto) 0.4 Lymph # (Auto) 1.5 [place] # (Auto) 1.7 H Eos # (Auto) 0.1 Baso # (Auto) 0.1 Abs Immat Gran (auto) 0.08 H Absolute Neuts (auto) 12.0 H Absolute Nucleated RBC 0.000 Nucleated RBC % (auto) 0.0 Smear Tech's Comments O2 Saturation 89.0 ABG pH at Pt Temp 7.36 ABG pCO2 at Pt Temp 52 H ABG pO2 at Pt Temp 69 L ABG HCO3 30 H ABG Base Excess (Actual) 3.6 VBG pH VBG pCO2 VBG pO2 VBG HCO3 VBG O2 Saturation VBG Base Excess Sodium 140 Potassium 4.1 Chloride 103 Carbon Dioxide 26 Anion Gap 15 BUN 15 Creatinine 0.94 Estim Creat Clear Calc 71.4 Estimated GFR > 60 Random Glucose 174 H Lactic Acid Calcium 7.7 L Phosphorus Magnesium Total Bilirubin 0.7 AST 18 ALT 10 Alkaline Phosphatase 48 Troponin I High Sens B-Natriuretic Peptide Total Protein 5.5 L Albumin 2.6 L 01/03/23 01/03/23 01/03/23 19:36 19:36 19:36 WBC RBC Hgb Hct MCV MCH MCHC RDW Plt Count MPV Immature Gran % (Auto) Neut % (Auto) Lymph % (Auto) [place] % (Auto) Eos % (Auto) Baso % (Auto) Lymph # (Auto) [place] # (Auto) Eos # (Auto) Baso # (Auto) Abs Immat Gran (auto) Absolute Neuts (auto) Absolute Nucleated RBC Nucleated RBC % (auto) Smear Tech's Comments O2 Saturation ABG pH at Pt Temp ABG pCO2 at Pt Temp ABG pO2 at Pt Temp ABG HCO3 ABG Base Excess (Actual) VBG pH VBG pCO2 VBG pO2 VBG HCO3 VBG O2 Saturation VBG Base Excess Sodium Potassium Chloride Carbon Dioxide Anion Gap BUN Creatinine Estim Creat Clear Calc Estimated GFR Random Glucose Lactic Acid 1.9 Calcium Phosphorus Magnesium Total Bilirubin AST ALT Alkaline Phosphatase Troponin I High Sens 126.8 H* D B-Natriuretic Peptide 410 H Total Protein Albumin 04/26/23 04/27/23 04/27/23 23:42 05:06 05:08 WBC 14.0 H RBC 3.59 L Hgb 10.2 L Hct 31.5 L MCV 87.7 MCH 28.4 MCHC 32.4 RDW 15.6 Plt Count 305 MPV 11.3 Immature Gran % (Auto) 0.4 Neut % (Auto) 69.9 Lymph % (Auto) 15.9 L [place] % (Auto) 12.8 H Eos % (Auto) 0.8 Baso % (Auto) 0.2 Lymph # (Auto) 2.2 [place] # (Auto) 1.8 H Eos # (Auto) 0.1 Baso # (Auto) 0.0 Abs Immat Gran (auto) 0.06 H Absolute Neuts (auto) 9.8 H Absolute Nucleated RBC 0.000 Nucleated RBC % (auto) 0.0 Smear Tech's Comments VERIFIED O2 Saturation ABG pH at Pt Temp ABG pCO2 at Pt Temp ABG pO2 at Pt Temp ABG HCO3 ABG Base Excess (Actual) VBG pH 7.56 H VBG pCO2 29 VBG pO2 61 VBG HCO3 26 VBG O2 Saturation 90.0 VBG Base Excess 4.5 Sodium Potassium Chloride Carbon Dioxide Anion Gap BUN Creatinine Estim Creat Clear Calc Estimated GFR Random Glucose Lactic Acid Calcium Phosphorus Magnesium Total Bilirubin AST ALT Alkaline Phosphatase Troponin I High Sens 112.9 H* B-Natriuretic Peptide Total Protein Albumin 01/04/23 05:08 WBC RBC Hgb Hct MCV MCH MCHC RDW Plt Count MPV Immature Gran % (Auto) Neut % (Auto) Lymph % (Auto) [place] % (Auto) Eos % (Auto) Baso % (Auto) Lymph # (Auto) [place] # (Auto) Eos # (Auto) Baso # (Auto) Abs Immat Gran (auto) Absolute Neuts (auto) Absolute Nucleated RBC Nucleated RBC % (auto) Smear Tech's Comments O2 Saturation ABG pH at Pt Temp ABG pCO2 at Pt Temp ABG pO2 at Pt Temp ABG HCO3 ABG Base Excess (Actual) VBG pH VBG pCO2 VBG pO2 VBG HCO3 VBG O2 Saturation VBG Base Excess Sodium 144 Potassium 2.9 L D Chloride 109 H Carbon Dioxide 25 Anion Gap 13 BUN 12 Creatinine 0.79 Estim Creat Clear Calc 95.2 Estimated GFR > 60 Random Glucose 129 H Lactic Acid Calcium 7.7 L Phosphorus 2.5 L Magnesium 1.9 Total Bilirubin AST ALT Alkaline Phosphatase Troponin I High Sens B-Natriuretic Peptide Total Protein Albumin 3.0 L Microbiology Microbiology Results: Microbiology 01/03/23 02:07 Sputum - Suctioned Gram Stain - Final 12/30/22 17:32 Blood - Venous Blood Culture - Preliminary No growth after 48 hours. 12/30/22 17:26 Blood - Venous Blood Culture - Preliminary No growth after 48 hours. Progress Note: A&P Assessment and plan (1) Loculated pleural effusion: Status: Acute (2) Pneumonia: Status: Acute (3) Hepatitis C: Status: Acute (4) HIV (human immunodeficiency virus infection): Status: Acute (5) Lung abscess: Status: Acute Plan Assessment: 57-year-old gentleman admitted with outpatient treatment failure for community-acquired pneumonia resulting development of loculated pleural effusion with hospital course significant for development of respiratory distress now requiring ventilatory support. Plan: Neuro: No acute issues. Cardiac: Continue to titrate off pressor support as tolerated. Pulmonary: Loculated left-sided pleural effusion on the background of pneumonia/lung abscess. Thoracic surgery evaluation requested. Being planned for decortication. Continue on ventilatory support. Renal: No acute issues. Endo: No acute issues. GI: No acute issues. ID: underlying HIV, hepatitis-C. Now with failure out of outpatient antibiotic treatment for community-acquired pneumonia. Continue with broad-spectrum antibiotics. Cultures are negative to date. Heme/Onc: No acute issues. Psych: No acute issues. Miscellaneous: No acute issues. Prophylaxis: Lovenox, famotidine Diet: tube feeds Critical care time spent: 60 minutes excluding separately billable procedures Quality Stroke Does the patient have a stroke diagnosis?: No VTE Prior VTE?: No VTE Risk Level:: Medical - moderate - high VTE Device Contraindication: Treatment Not Indicated VTE Drug Contraindication: N/A - Med Ordered
[2023-01-04] MEDS: Norepinephrine Bitartrate/D5W 8 MG/250 ML PLAST..BAG 16.59 MG IVCONT (13:25)
--- NOTE | 2023-01-04 14:49 | MHC.CM.PN ---
Pt transferred to ICU after an aspiration event w/hypoxia and resp. failure. On ventilation and pressors: may need decortication: thoracic consulted. CM to follow for finalization of d/c plan
--- NOTE | 2023-01-04 14:51 | W.PM.CCHP ---
Procedures Date of Service Date of Service: 01/04/23 Central Line Placement Right IJ: Central Line Comments: Right internal jugular triple-lumen central venous catheter emergently placed for vasopressor support under ultrasound guidance and usual sterile conditions with no immediate complications. Line position verified on chest x-ray.
[2023-01-04] MEDS: Enoxaparin Sodium 40 MG/0.4 ML SYRINGE SUBCUT (21:57)
[2023-01-05] VITALS (48 sets, daily range): BP systolic 63–152; BP diastolic 35–89; PULSE 56–79; RESP 13–29; TEMP 35–38.2; O2SAT 64–98; BMI 24.5
[2023-01-05] MEDS: 0.9 % Sodium Chloride Flush 3 ML SYRINGE IVFLUSH ×4 (00:40→22:21)
[2023-01-05] MEDS: Piperacillin Sodium/Tazobactam 4.5 GM in 0.9 % Sodium Chloride 100 ML IV ×4 (02:35→20:42)
[2023-01-05] MEDS: Norepinephrine Bitartrate/D5W 8 MG/250 ML PLAST..BAG 12.17 MG IVCONT (03:16)
[2023-01-05 04:23] LABS: VBG Base Excess 5.7 mmol/L; VBG HCO3 29 mmol/L (22-26); VBG pCO2 39 mmHg; VBG pH 7.48 (7.32-7.43); VBG pO2 44 mmHg
[2023-01-05 04:36] LABS: MANUAL DIFF FLAG NO
[2023-01-05] MEDS: fentaNYL citrate/NS 1,000 MCG/100 ML PLAST..BAG 5 MCG IVCONT (04:37)
[2023-01-05] MEDS: propofoL 1,000 MG/100 ML VIAL 10.62 MG IVCONT (04:41)
[2023-01-05 04:42] LABS: Basophils Absolute Auto 0.1 X10*3/uL (0.0-0.2); Basophils Percent Auto 0.6 % (0-2); Eosinophils Absolute Auto 0.2 X10*3/uL (0.0-0.4); Eosinophils Percent Auto 1.9 % (0-4); Hematocrit 28.5 % (42.0-52.0); Hemoglobin 9.4 g/dl (14.0-18.0); Imm Gran Abs Auto 0.05 X10*3/uL (0.00-0.03); Imm Gran Pct Auto 0.5 % (0.0-0.4); Lymphocytes Absolute Auto 1.7 X10*3/uL (1.2-4.9); Lymphocytes Percent Auto 16.5 % (20-40); Mean Corpuscular Hemoglobin 29.5 pg (27.0-33.0); Mean Corpuscular Volume 89.3 fL (80.0-98.0); Mean Platelet Volume 11.5 fL (9.4-12.4); Monocytes Absolute Auto 1.4 X10*3/uL (0.1-1.2); Monocytes Percent Auto 13.9 % (2-11); Neutrophils Absolute Auto 6.8 x10*3/uL (2.0-8.3); Neutrophils Percent Auto 66.6 % (45-73); Platelet Count 283 X10*3/uL (160-400); Red Blood Count 3.19 X10*6/uL (4.60-5.80); Red Cell Distribution Width 15.7 % (11.0-16.0); White Blood Count 10.2 X10*3/uL (4.8-10.8)
[2023-01-05 04:46] LABS: INTERNATIONAL NORM RATIO 1.5 (0.9-1.1); Prothrombin Time 16.9 SEC (10.0-13.1)
[2023-01-05 04:48] LABS: Partial Thromboplastin Time 33.5 SEC (26.0-36.4)
[2023-01-05 05:03] LABS: Alanine Aminotransferase 10 U/L (0-40); Albumin Level 3.1 g/dL (3.5-5.0); Alkaline Phosphatase 36 U/L (39-117); Anion Gap 12 (12-20); Aspartate Amino Transferase 14 U/L (5-37); Bilirubin Total 0.6 mg/dL (0.0-1.0); Blood Urea Nitrogen 10 mg/dL (9-16); Calcium 7.6 mg/dL (8.4-10.2); Carbon Dioxide 28 mmol/L (22-29); Chloride 108 mmol/L (96-108); Creatinine Clr Calc Pharmacy 94.1; Estimated Glomerular Filt Rate > 60; Glucose Random 121 mg/dL (60-115); Magnesium 2.1 mg/dL (1.6-2.6); Phosphorus 3.1 mg/dL (2.7-4.5); Potassium 3.3 mmol/L (3.3-5.1); Sodium 145 mmol/L (135-145); Total Protein 5.2 g/dL (6.5-8.0)
[2023-01-05 05:21] LABS: Venous Blood Gas Refer to POC result
[2023-01-05] MEDS: Potassium Chloride Packet 20 MEQ PACKET 40 MEQ OG-TUBE (06:07)
[2023-01-05] MEDS: Albuterol/Iprat 2.5/0.5MG 3 ML AMPUL.NEB INHALE ×2 (08:27→19:35)
[2023-01-05] MEDS: Chlorhexidine Gluc Oral Rinse 15 ML MOUTHWASH BUCCAL ×3 (08:52→20:42)
[2023-01-05] MEDS: Famotidine/PF 20 MG/2 ML VIAL IVPUSH (08:52)
--- NOTE | 2023-01-05 10:12 | HO.ANESPROP2 ---
HPI - Anesthesia Eval Consult details Narrative: Left fiberoptic bronchoscopy, Left open thoracotomy and decortication PMFSH Active Problems Active Problems: All Active Problems (Updated 01/04/23 @ 11:44 by Eliu Monet MD) Hepatitis C (Acute) HIV (human immunodeficiency virus infection) (Acute) Loculated pleural effusion (Acute) Sepsis (Acute) Pneumonia (Acute) Fx shaft fibula-closed (Acute) Fracture of tibial shaft, closed (Acute) Acute respiratory failure with hypoxia (Acute) Mild persistent asthma with (acute) exacerbation (Acute) Atypical pneumonia (Acute) Asthma with exacerbation (Acute) Abscess of lung (Acute) Abscess of left lung with pneumonia (Acute) Abscess of lower lobe of right lung with pneumonia (Acute) Lung abscess (Acute) Shingles (Acute) Past Medical History Medical History Asthma Closed fracture of leg Depression Hemorrhoids Hepatitis C HIV (human immunodeficiency virus infection) Hypertension Kidney stones Pleuritic chest pain Pneumonia Substance abuse Family History Family history of problems with anesthesia: No Surgical History Surgical History H/O hemorrhoidectomy History of Problems with Anesthesia: No Social History Social History Household Members: None Housing: Apartment Do you presently have visiting nurse or other home services: Yes ([employer]) Alcohol intake: never Patient Tobacco Use Status: Never used Tobacco Smoked in Last 30 Days: No Second Hand Smoke Exposure: No Use of substances other than those prescribed or required for medical reasons: No Currently Displaying Signs/Symptoms of Drug Intoxication Withdrawal: No Have you been hit, kicked, punched, or otherwise hurt by someone within the past year? If so, by whom?: No Do you feel safe in your current relationship?: Yes Is there a partner from a previous relationship who is making you feel unsafe now?: No Are you made to feel afraid or neglected: No Advance Directives: Yes Advance Directives on File: Yes Advance Directives Date on File: 04/25/21 Do you have thoughts of harming others: None Do you have a plan to hurt others: No Plan Recently lost weight without trying: Yes How much weight loss: 14-23 pounds Eating poorly because of decreased appetite: Yes Nutrition screen score: 5 Nutrition Risks: Poor intake 0-25% >4 days service: No Current occupational status: disabled Meds Allergies Allergy/AdvReac Type Severity Reaction Status Date / Time Seasonal Allergies Allergy Intermediate Eye Verified 12/20/22 07:44 Drainage codeine Allergy Mild RASH Verified 12/20/22 07:44 [From Tylenol-Codeine #3] levofloxacin [From Levaquin] Allergy Mild Rash Verified 12/20/22 07:44 metoclopramide [From Reglan] Allergy Mild Rash Verified 12/20/22 07:44 acetaminophen Allergy Unknown Unknown Verified 12/20/22 07:44 [Tylenol-Codeine #3] ibuprofen [From Motrin] Allergy Unknown Reflux Verified 12/20/22 07:44 Penicillins [PENICILLINS] Allergy Unknown Rash Verified 12/20/22 07:44 tramadol [From Ultram] AdvReac Mild Nausea and Verified 12/20/22 07:44 Vomiting Active Medications: Current Medications Albuterol/Ipratropium (Albuterol/Iprat 2.5/0.5mg 3 Ml Ampul.Neb) 3 ml INHALE RQ4H WHILE AWAKE [facility] Last Admin: 01/05/23 08:27 Dose: 3 ml Albuterol/Ipratropium (Albuterol/Iprat 2.5/0.5mg 3 Ml Ampul.Neb) 3 ml INHALE Q4H PRN PRN Reason: Wheezing Last Admin: 01/03/23 01:38 Dose: 3 ml Bictegravir/Emtricitabine/Tenofovir (Bictegrav/Emtricit/Tenofov Ala Tablet) 1 tab PO DAILY [facility] Last Admin: 01/05/23 08:52 Dose: Not Given Chlorhexidine Gluconate (Chlorhexidine Gluc Oral Rinse 15 Ml Mouthwash) 15 ml BUCCAL TID [facility] Last Admin: 01/05/23 08:52 Dose: 15 ml Enoxaparin Sodium (Enoxaparin Sodium 40 Mg/0.4 Ml Syringe) 40 mg SUBCUT Q24H [facility] Last Admin: 01/04/23 21:57 Dose: 40 mg Famotidine (Famotidine/Pf 20 Mg/2 Ml Vial) 20 mg IVPUSH DAILY [facility] Last Admin: 01/05/23 08:52 Dose: 20 mg Piperacillin Sod/Tazobactam (Sod 4.5 gm/ Sodium Chloride) 100 mls @ 200 mls/hr IV Q6H [facility] Last Infusion: 01/05/23 09:31 Dose: Infused Propofol (Diprivan) 1,000 mg in 100 mls @ 0 mls/hr IVCONT .Q0M MICHAEL; Protocol Last Titration: 01/05/23 09:32 Dose: 0 mcg/kg/min, 0 mls/hr Norepinephrine Bitartrate (Levophed) 8 mg in 250 mls @ 0 mls/hr IVCONT .Q0M MICHAEL; Protocol Last Titration: 01/05/23 09:16 Dose: 0.09 mcg/kg/min, 9.96 mls/hr Fentanyl (Sublimaze/Ns) 1,000 mcg in 100 mls @ 0 mls/hr IVCONT .Q0M MICHAEL; Protocol Last Titration: 01/05/23 09:16 Dose: 0 mcg/hr, 0 mls/hr Latanoprost (Latanoprost 0.005 % Ophth Carol 2.5 Ml Drops) 1 drop EYE-BOTH DAILY [facility] Last Admin: 01/05/23 08:52 Dose: Not Given Naloxone HCl (Naloxone Hcl 0.4 Mg/Ml Vial) 0.2 mg IVPUSH Q2M PRN PRN Reason: Excessive sedation or RR < 8 Sodium Chloride (0.9 % Sodium Chloride Flush 3 Ml Syringe) 3 ml IVFLUSH QSHIFT [facility] Last Admin: 01/05/23 08:52 Dose: 3 ml Home Medications Medication Instructions Recorded Confirmed Last Taken Type amlodipine 5 mg tablet 5 mg PO DAILY 12/30/22 12/30/22 Unknown History bictegravir 50 mg-emtricitabine 1 tab PO DAILY 12/30/22 12/30/22 Unknown History 200 mg-tenofovir alafenam 25 mg tablet (Biktarvy) celecoxib 200 mg capsule 200 mg PO BID 12/30/22 12/30/22 Unknown History clonazepam 1 mg tablet 1 mg PO DAILY 12/30/22 12/30/22 Unknown History fluticasone propionate 110 1 puff inhalation BID 12/30/22 12/30/22 Unknown History mcg/actuation HFA aerosol inhaler (Flovent HFA) gabapentin 600 mg tablet 600 mg PO TID 12/30/22 12/30/22 Unknown History ibuprofen 800 mg tablet 800 mg PO Q8H PRN pain 12/30/22 12/30/22 Unknown History latanoprost 0.005 % eye drops 1 drp ophthalmic (eye) DAILY 12/30/22 12/30/22 Unknown History mirtazapine 30 mg tablet 60 mg PO BEDTIME 12/30/22 12/31/22 Unknown History pantoprazole 40 mg tablet,delayed 40 mg PO DAILY@0630 12/30/22 12/31/22 Unknown History release propranolol 120 mg capsule,24 120 mg PO DAILY 12/30/22 12/30/22 Unknown History hr,extended release risperidone 2 mg tablet 2 mg PO BEDTIME 12/30/22 12/30/22 Unknown History tramadol 50 mg tablet 50 mg PO DAILY PRN Pain 12/30/22 12/30/22 Unknown History Exam Exam Date and Time: January 05, 2023 1012 Height,Weight and Vital Signs: Height 5 ft 7 in Weight 71 kg Last Vital Signs Temp 99.9 F 01/05/23 09:00 Pulse 64 01/05/23 09:16 Resp 16 01/05/23 09:00 BP 119/76 01/05/23 09:16 Pulse Ox 96 01/05/23 09:00 O2 Del Method Mechanical Ventilation 01/05/23 09:00 O2 Flow Rate 5 01/03/23 16:00 FiO2 30 01/05/23 09:31 Pertinent Lab Results Pertinent Lab Results: Laboratory Tests 12/30/22 12/30/22 12/30/22 16:58 17:03 17:04 WBC 14.5 H RBC 4.40 L Hgb 13.0 L Hct 39.3 L MCV 89.3 MCH 29.5 MCHC 33.1 RDW 15.3 Plt Count 302 MPV 10.6 Immature Gran % (Auto) 0.8 H Neut % (Auto) 85.0 H Lymph % (Auto) 6.0 L [place] % (Auto) 7.6 Eos % (Auto) 0.4 Baso % (Auto) 0.2 Lymph # (Auto) 0.9 L [place] # (Auto) 1.1 Eos # (Auto) 0.1 Baso # (Auto) 0.0 Abs Immat Gran (auto) 0.11 H Absolute Neuts (auto) 12.3 H Absolute Nucleated RBC 0.000 Nucleated RBC % (auto) 0.0 Smear Tech's Comments PT INR APTT O2 Saturation ABG pH at Pt Temp ABG pCO2 at Pt Temp ABG pO2 at Pt Temp ABG HCO3 ABG Base Excess (Actual) VBG pH VBG pCO2 VBG pO2 VBG HCO3 VBG O2 Saturation VBG Base Excess Sodium Potassium Chloride Carbon Dioxide Anion Gap BUN Creatinine Estim Creat Clear Calc Estimated GFR Random Glucose Lactic Acid 0.9 Calcium Phosphorus Magnesium Total Bilirubin Direct Bilirubin AST ALT Alkaline Phosphatase Troponin I High Sens B-Natriuretic Peptide Total Protein Albumin Nasal Screen MRSA (PCR) Nasal S. aureus Screen Nasal MRSA/S.aureus Interp Vancomycin Trough Random Vancomycin Urine Opiates Screen Urine Fentanyl Screen Ur Barbiturates Screen Ur Phencyclidine Scrn Ur Amphetamines Screen U Benzodiazepines Scrn Urine Cocaine Screen U Marijuana (THC) Screen COVID-19 (TAMMIE) Negative COVID-19 Clin Com See Note Blood Type Antibody Screen 12/30/22 12/30/22 12/30/22 17:04 17:04 17:04 WBC RBC Hgb Hct MCV MCH MCHC RDW Plt Count MPV Immature Gran % (Auto) Neut % (Auto) Lymph % (Auto) [place] % (Auto) Eos % (Auto) Baso % (Auto) Lymph # (Auto) [place] # (Auto) Eos # (Auto) Baso # (Auto) Abs Immat Gran (auto) Absolute Neuts (auto) Absolute Nucleated RBC Nucleated RBC % (auto) Smear Tech's Comments PT 14.6 H INR 1.3 H APTT O2 Saturation ABG pH at Pt Temp ABG pCO2 at Pt Temp ABG pO2 at Pt Temp ABG HCO3 ABG Base Excess (Actual) VBG pH VBG pCO2 VBG pO2 VBG HCO3 VBG O2 Saturation VBG Base Excess Sodium 141 Potassium 4.0 Chloride 106 Carbon Dioxide 26 Anion Gap 13 BUN 12 Creatinine 1.05 Estim Creat Clear Calc 62.2 Estimated GFR > 60 Random Glucose 107 Lactic Acid Calcium 9.0 Phosphorus Magnesium Total Bilirubin 0.5 Direct Bilirubin 0.2 AST 11 ALT 12 Alkaline Phosphatase 65 Troponin I High Sens < 2.7 B-Natriuretic Peptide Total Protein 6.8 Albumin 3.8 Nasal Screen MRSA (PCR) Nasal S. aureus Screen Nasal MRSA/S.aureus Interp Vancomycin Trough Random Vancomycin Urine Opiates Screen Urine Fentanyl Screen Ur Barbiturates Screen Ur Phencyclidine Scrn Ur Amphetamines Screen U Benzodiazepines Scrn Urine Cocaine Screen U Marijuana (THC) Screen COVID-19 (TAMMIE) COVID-19 [employer] Com Blood Type Antibody Screen 12/31/22 12/31/22 12/31/22 05:28 08:01 16:07 WBC 27.5 H RBC 4.58 L Hgb 13.5 L Hct 42.0 MCV 91.7 MCH 29.5 MCHC 32.1 RDW 15.7 Plt Count 270 MPV 11.2 Immature Gran % (Auto) Neut % (Auto) Lymph % (Auto) [place] % (Auto) Eos % (Auto) Baso % (Auto) Lymph # (Auto) [place] # (Auto) Eos # (Auto) Baso # (Auto) Abs Immat Gran (auto) Absolute Neuts (auto) Absolute Nucleated RBC 0.000 Nucleated RBC % (auto) 0.0 Smear Tech's Comments PT INR APTT O2 Saturation ABG pH at Pt Temp ABG pCO2 at Pt Temp ABG pO2 at Pt Temp ABG HCO3 ABG Base Excess (Actual) VBG pH VBG pCO2 VBG pO2 VBG HCO3 VBG O2 Saturation VBG Base Excess Sodium Potassium Chloride Carbon Dioxide Anion Gap BUN Creatinine 0.89 Estim Creat Clear Calc 75.4 Estimated GFR > 60 Random Glucose Lactic Acid Calcium Phosphorus Magnesium Total Bilirubin Direct Bilirubin AST ALT Alkaline Phosphatase Troponin I High Sens B-Natriuretic Peptide Total Protein Albumin Nasal Screen MRSA (PCR) Nasal S. aureus Screen Nasal MRSA/S.aureus Interp Vancomycin Trough Random Vancomycin Urine Opiates Screen POSITIVE H Urine Fentanyl Screen Not Detected Ur Barbiturates Screen Not Detected Ur Phencyclidine Scrn Not Detected Ur Amphetamines Screen Not Detected U Benzodiazepines Scrn POSITIVE H Urine Cocaine Screen POSITIVE H U Marijuana (THC) Screen Not Detected COVID-19 (TAMMIE) COVID-19 [employer] Com Blood Type Antibody Screen 01/01/23 01/01/23 01/01/23 05:25 10:19 14:22 WBC RBC Hgb Hct MCV MCH MCHC RDW Plt Count MPV Immature Gran % (Auto) Neut % (Auto) Lymph % (Auto) [place] % (Auto) Eos % (Auto) Baso % (Auto) Lymph # (Auto) [place] # (Auto) Eos # (Auto) Baso # (Auto) Abs Immat Gran (auto) Absolute Neuts (auto) Absolute Nucleated RBC Nucleated RBC % (auto) Smear Tech's Comments PT INR APTT O2 Saturation ABG pH at Pt Temp ABG pCO2 at Pt Temp ABG pO2 at Pt Temp ABG HCO3 ABG Base Excess (Actual) VBG pH VBG pCO2 VBG pO2 VBG HCO3 VBG O2 Saturation VBG Base Excess Sodium Potassium Chloride Carbon Dioxide Anion Gap BUN Creatinine 0.78 Estim Creat Clear Calc 86.1 Estimated GFR > 60 Random Glucose Lactic Acid Calcium Phosphorus Magnesium Total Bilirubin Direct Bilirubin AST ALT Alkaline Phosphatase Troponin I High Sens B-Natriuretic Peptide Total Protein Albumin Nasal Screen MRSA (PCR) NEGATIVE Nasal S. aureus Screen NEGATIVE Nasal MRSA/S.aureus Interp SEE NOTE Vancomycin Trough 6.4 L Random Vancomycin Urine Opiates Screen Urine Fentanyl Screen Ur Barbiturates Screen Ur Phencyclidine Scrn Ur Amphetamines Screen U Benzodiazepines Scrn Urine Cocaine Screen U Marijuana (THC) Screen COVID-19 (TAMMIE) COVID-19 Clin Com Blood Type Antibody Screen 01/02/23 01/02/23 01/02/23 06:08 06:08 06:08 WBC 16.5 H RBC 4.25 L Hgb 12.3 L Hct 38.4 L MCV 90.4 MCH 28.9 MCHC 32.0 RDW 15.6 Plt Count 254 MPV 11.6 Immature Gran % (Auto) Neut % (Auto) Lymph % (Auto) [place] % (Auto) Eos % (Auto) Baso % (Auto) Lymph # (Auto) [place] # (Auto) Eos # (Auto) Baso # (Auto) Abs Immat Gran (auto) Absolute Neuts (auto) Absolute Nucleated RBC 0.000 Nucleated RBC % (auto) 0.0 Smear Tech's Comments PT INR APTT O2 Saturation ABG pH at Pt Temp ABG pCO2 at Pt Temp ABG pO2 at Pt Temp ABG HCO3 ABG Base Excess (Actual) VBG pH VBG pCO2 VBG pO2 VBG HCO3 VBG O2 Saturation VBG Base Excess Sodium 141 Potassium 3.5 Chloride 106 Carbon Dioxide 26 Anion Gap 13 BUN 7 L Creatinine 0.80 0.80 Estim Creat Clear Calc 83.9 83.9 Estimated GFR > 60 > 60 Random Glucose 110 Lactic Acid Calcium 7.7 L D Phosphorus Magnesium Total Bilirubin Direct Bilirubin AST ALT Alkaline Phosphatase Troponin I High Sens B-Natriuretic Peptide Total Protein Albumin Nasal Screen MRSA (PCR) Nasal S. aureus Screen Nasal MRSA/S.aureus Interp Vancomycin Trough Random Vancomycin Urine Opiates Screen Urine Fentanyl Screen Ur Barbiturates Screen Ur Phencyclidine Scrn Ur Amphetamines Screen U Benzodiazepines Scrn Urine Cocaine Screen U Marijuana (THC) Screen COVID-19 (TAMMIE) COVID-19 [facility] Blood Type Antibody Screen 01/02/23 01/03/23 01/03/23 10:25 06:03 17:55 WBC RBC Hgb Hct MCV MCH MCHC RDW Plt Count MPV Immature Gran % (Auto) Neut % (Auto) Lymph % (Auto) [place] % (Auto) Eos % (Auto) Baso % (Auto) Lymph # (Auto) [place] # (Auto) Eos # (Auto) Baso # (Auto) Abs Immat Gran (auto) Absolute Neuts (auto) Absolute Nucleated RBC Nucleated RBC % (auto) Smear Tech's Comments PT INR APTT O2 Saturation 89.0 ABG pH at Pt Temp 7.36 ABG pCO2 at Pt Temp 52 H ABG pO2 at Pt Temp 69 L ABG HCO3 30 H ABG Base Excess (Actual) 3.6 VBG pH VBG pCO2 VBG pO2 VBG HCO3 VBG O2 Saturation VBG Base Excess Sodium Potassium Chloride Carbon Dioxide Anion Gap BUN Creatinine 0.72 Estim Creat Clear Calc 93.3 Estimated GFR > 60 Random Glucose Lactic Acid Calcium Phosphorus Magnesium Total Bilirubin Direct Bilirubin AST ALT Alkaline Phosphatase Troponin I High Sens B-Natriuretic Peptide Total Protein Albumin Nasal Screen MRSA (PCR) Nasal S. aureus Screen Nasal MRSA/S.aureus Interp Vancomycin Trough Random Vancomycin 10.9 L Urine Opiates Screen Urine Fentanyl Screen Ur Barbiturates Screen Ur Phencyclidine Scrn Ur Amphetamines Screen U Benzodiazepines Scrn Urine Cocaine Screen U Marijuana (THC) Screen COVID-19 (TAMMIE) COVID-19 [employer] Com Blood Type Antibody Screen 01/03/23 01/03/23 01/03/23 19:36 19:36 19:36 WBC 15.5 H RBC 3.89 L Hgb 11.2 L Hct 34.9 L MCV 89.7 MCH 28.8 MCHC 32.1 RDW 15.7 Plt Count 388 D MPV 11.3 Immature Gran % (Auto) 0.5 H Neut % (Auto) 77.6 H Lymph % (Auto) 9.8 L [place] % (Auto) 11.2 H Eos % (Auto) 0.5 Baso % (Auto) 0.4 Lymph # (Auto) 1.5 [place] # (Auto) 1.7 H Eos # (Auto) 0.1 Baso # (Auto) 0.1 Abs Immat Gran (auto) 0.08 H Absolute Neuts (auto) 12.0 H Absolute Nucleated RBC 0.000 Nucleated RBC % (auto) 0.0 Smear Tech's Comments PT INR APTT O2 Saturation ABG pH at Pt Temp ABG pCO2 at Pt Temp ABG pO2 at Pt Temp ABG HCO3 ABG Base Excess (Actual) VBG pH VBG pCO2 VBG pO2 VBG HCO3 VBG O2 Saturation VBG Base Excess Sodium 140 Potassium 4.1 Chloride 103 Carbon Dioxide 26 Anion Gap 15 BUN 15 Creatinine 0.94 Estim Creat Clear Calc 71.4 Estimated GFR > 60 Random Glucose 174 H Lactic Acid 1.9 Calcium 7.7 L Phosphorus Magnesium Total Bilirubin 0.7 Direct Bilirubin AST 18 ALT 10 Alkaline Phosphatase 48 Troponin I High Sens B-Natriuretic Peptide Total Protein 5.5 L Albumin 2.6 L Nasal Screen MRSA (PCR) Nasal S. aureus Screen Nasal MRSA/S.aureus Interp Vancomycin Trough Random Vancomycin Urine Opiates Screen Urine Fentanyl Screen Ur Barbiturates Screen Ur Phencyclidine Scrn Ur Amphetamines Screen U Benzodiazepines Scrn Urine Cocaine Screen U Marijuana (THC) Screen COVID-19 (TAMMIE) COVID-19 Clin Com Blood Type Antibody Screen 01/03/23 01/03/23 01/03/23 19:36 19:36 23:42 WBC RBC Hgb Hct MCV MCH MCHC RDW Plt Count MPV Immature Gran % (Auto) Neut % (Auto) Lymph % (Auto) [place] % (Auto) Eos % (Auto) Baso % (Auto) Lymph # (Auto) [place] # (Auto) Eos # (Auto) Baso # (Auto) Abs Immat Gran (auto) Absolute Neuts (auto) Absolute Nucleated RBC Nucleated RBC % (auto) Smear Tech's Comments PT INR APTT O2 Saturation ABG pH at Pt Temp ABG pCO2 at Pt Temp ABG pO2 at Pt Temp ABG HCO3 ABG Base Excess (Actual) VBG pH VBG pCO2 VBG pO2 VBG HCO3 VBG O2 Saturation VBG Base Excess Sodium Potassium Chloride Carbon Dioxide Anion Gap BUN Creatinine Estim Creat Clear Calc Estimated GFR Random Glucose Lactic Acid Calcium Phosphorus Magnesium Total Bilirubin Direct Bilirubin AST ALT Alkaline Phosphatase Troponin I High Sens 126.8 H* D 112.9 H* B-Natriuretic Peptide 410 H Total Protein Albumin Nasal Screen MRSA (PCR) Nasal S. aureus Screen Nasal MRSA/S.aureus Interp Vancomycin Trough Random Vancomycin Urine Opiates Screen Urine Fentanyl Screen Ur Barbiturates Screen Ur Phencyclidine Scrn Ur Amphetamines Screen U Benzodiazepines Scrn Urine Cocaine Screen U Marijuana (THC) Screen COVID-19 (TAMMIE) COVID-19 Clin Com Blood Type Antibody Screen 01/04/23 01/04/23 01/04/23 05:06 05:08 05:08 WBC 14.0 H RBC 3.59 L Hgb 10.2 L Hct 31.5 L MCV 87.7 MCH 28.4 MCHC 32.4 RDW 15.6 Plt Count 305 MPV 11.3 Immature Gran % (Auto) 0.4 Neut % (Auto) 69.9 Lymph % (Auto) 15.9 L [place] % (Auto) 12.8 H Eos % (Auto) 0.8 Baso % (Auto) 0.2 Lymph # (Auto) 2.2 [place] # (Auto) 1.8 H Eos # (Auto) 0.1 Baso # (Auto) 0.0 Abs Immat Gran (auto) 0.06 H Absolute Neuts (auto) 9.8 H Absolute Nucleated RBC 0.000 Nucleated RBC % (auto) 0.0 Smear Tech's Comments VERIFIED PT INR APTT O2 Saturation ABG pH at Pt Temp ABG pCO2 at Pt Temp ABG pO2 at Pt Temp ABG HCO3 ABG Base Excess (Actual) VBG pH 7.56 H VBG pCO2 29 VBG pO2 61 VBG HCO3 26 VBG O2 Saturation 90.0 VBG Base Excess 4.5 Sodium 144 Potassium 2.9 L D Chloride 109 H Carbon Dioxide 25 Anion Gap 13 BUN 12 Creatinine 0.79 Estim Creat Clear Calc 95.2 Estimated GFR > 60 Random Glucose 129 H Lactic Acid Calcium 7.7 L Phosphorus 2.5 L Magnesium 1.9 Total Bilirubin Direct Bilirubin AST ALT Alkaline Phosphatase Troponin I High Sens B-Natriuretic Peptide Total Protein Albumin 3.0 L Nasal Screen MRSA (PCR) Nasal S. aureus Screen Nasal MRSA/S.aureus Interp Vancomycin Trough Random Vancomycin Urine Opiates Screen Urine Fentanyl Screen Ur Barbiturates Screen Ur Phencyclidine Scrn Ur Amphetamines Screen U Benzodiazepines Scrn Urine Cocaine Screen U Marijuana (THC) Screen COVID-19 (TAMMIE) COVID-19 Clin Com Blood Type Antibody Screen 01/05/23 01/05/23 01/05/23 04:14 04:17 04:17 WBC 10.2 RBC 3.19 L Hgb 9.4 L Hct 28.5 L MCV 89.3 MCH 29.5 MCHC 33.0 RDW 15.7 Plt Count 283 MPV 11.5 Immature Gran % (Auto) 0.5 H Neut % (Auto) 66.6 Lymph % (Auto) 16.5 L [place] % (Auto) 13.9 H Eos % (Auto) 1.9 Baso % (Auto) 0.6 Lymph # (Auto) 1.7 [place] # (Auto) 1.4 H Eos # (Auto) 0.2 Baso # (Auto) 0.1 Abs Immat Gran (auto) 0.05 H Absolute Neuts (auto) 6.8 Absolute Nucleated RBC 0.000 Nucleated RBC % (auto) 0.0 Smear Tech's Comments PT 16.9 H INR 1.5 H APTT O2 Saturation ABG pH at Pt Temp ABG pCO2 at Pt Temp ABG pO2 at Pt Temp ABG HCO3 ABG Base Excess (Actual) VBG pH 7.48 H VBG pCO2 39 VBG pO2 44 VBG HCO3 29 H VBG O2 Saturation 71.0 VBG Base Excess 5.7 Sodium Potassium Chloride Carbon Dioxide Anion Gap BUN Creatinine Estim Creat Clear Calc Estimated GFR Random Glucose Lactic Acid Calcium Phosphorus Magnesium Total Bilirubin Direct Bilirubin AST ALT Alkaline Phosphatase Troponin I High Sens B-Natriuretic Peptide Total Protein Albumin Nasal Screen MRSA (PCR) Nasal S. aureus Screen Nasal MRSA/S.aureus Interp Vancomycin Trough Random Vancomycin Urine Opiates Screen Urine Fentanyl Screen Ur Barbiturates Screen Ur Phencyclidine Scrn Ur Amphetamines Screen U Benzodiazepines Scrn Urine Cocaine Screen U Marijuana (THC) Screen COVID-19 (TAMMIE) COVID-19 Clin Com Blood Type Antibody Screen 01/05/23 01/05/23 01/05/23 04:17 04:17 04:17 WBC RBC Hgb Hct MCV MCH MCHC RDW Plt Count MPV Immature Gran % (Auto) Neut % (Auto) Lymph % (Auto) [place] % (Auto) Eos % (Auto) Baso % (Auto) Lymph # (Auto) [place] # (Auto) Eos # (Auto) Baso # (Auto) Abs Immat Gran (auto) Absolute Neuts (auto) Absolute Nucleated RBC Nucleated RBC % (auto) Smear Tech's Comments PT INR APTT 33.5 O2 Saturation ABG pH at Pt Temp ABG pCO2 at Pt Temp ABG pO2 at Pt Temp ABG HCO3 ABG Base Excess (Actual) VBG pH VBG pCO2 VBG pO2 VBG HCO3 VBG O2 Saturation VBG Base Excess Sodium 145 Potassium 3.3 Chloride 108 Carbon Dioxide 28 Anion Gap 12 BUN 10 Creatinine 0.80 Estim Creat Clear Calc 94.1 Estimated GFR > 60 Random Glucose 121 H Lactic Acid Calcium 7.6 L Phosphorus 3.1 Magnesium 2.1 Total Bilirubin 0.6 Direct Bilirubin AST 14 ALT 10 Alkaline Phosphatase 36 L Troponin I High Sens B-Natriuretic Peptide Total Protein 5.2 L Albumin 3.1 L Nasal Screen MRSA (PCR) Nasal S. aureus Screen Nasal MRSA/S.aureus Interp Vancomycin Trough Random Vancomycin Urine Opiates Screen Urine Fentanyl Screen Ur Barbiturates Screen Ur Phencyclidine Scrn Ur Amphetamines Screen U Benzodiazepines Scrn Urine Cocaine Screen U Marijuana (THC) Screen COVID-19 ([facility]AMMIE) COVID-19 Clin Com Blood Type O Positive Antibody Screen NEGATIVE Airway Mallampati Class: II TM Dist: >3cm Neck ROM: Full Loose/Missing/Broken Teeth: Yes Heart: [id number] Lungs: absent breath sounds left base Assessment and Plan Assessment Anesthesia Assessment: Anesthesia Plan Discussed and Chart Reviewed Final Anesthetic Review Family History of Problems with Anesthesia: No History of Problems with Anesthesia: No NPO: Yes ASA Class: IV Final Preanesthetic Review: No Changes in Pt Med Stat, Meds/Allgs Chart Reviewed, Consent Obtained/Reviewed and Anes Risks/Benef Reviewed Patient Risk: High Procedure Risk: Intermediate Assessment/Block/Sedation in SS: Assess/Block/Sedation-SS Anesthetic Plan Anesthetic Plan: GA (Double Lumen tube) and Agree w/ Assess. and Plan Disposition: Standard PACU
--- NOTE | 2023-01-05 10:34 | MHC.CM.PN ---
Pt scheduled for decortication today in the OR: will be extubated in addition. CM to follow for finalization of d/c needs: STR vs Home w/services: referrals made for both scenarios.
--- NOTE | 2023-01-05 11:08 | MHC.CLN ---
F/U PT REMAINS INTUBATED AND SEDATED DISCUSSED AT ROUNDS WITH MD PLAN FOR EXTUBATION TODAY PT ALSO REMAINS NPO IF TF NEEDED; RECOMMEND OSMOLITE 1.5 AT MAX GOAL RATE 55ML/HR WITH 300ML FREE WATER Q 6 HRS TO PROVIDE 1980KCALS (28KCALS/KG), 83G PROTEIN (1.2G/KG), 2205ML TOTAL WATER FROM FORMULA AND FLUSHES (31.5ML/KG) MONITOR TOLERANCE, RESIDUALS, AND LYTES FOLLOWING WITH TEAM
--- NOTE | 2023-01-05 12:37 | P.PNCC_ITS ---
Subjective Subjective Date of Service: 01/05/23 Interval History: 57-year-old gentleman with underlying HIV with CD4 of 377 on HAART, hep C, recently treated on outpatient basis for community-acquired pneumonia admitted on 12/30/2022 with left-sided chest pain and noted to have on CT chest left lower lobe abscess and loculated pleural effusion. Patient started empiric antibiotics and admitted to [facility] medical [facility]. hospital course significant for worsening mental status and development of aspiration on 01/03/2023 requiring intubation and ventilatory support. Patient transferred to care unit. Bedside bronchoscopy with only minimal thin secretions. follow-up CT chest with worse layne left-sided loculated pleural effusion. Evaluated by thoracic surgery and being planned for decortication. No events overnight. Extubated this a.m.. Critical Care Time (minutes): 45 Physical Exam Vital Signs: Vital Signs: Last Vital Signs Temp 98.8 F 01/05/23 12:00 Pulse 79 01/05/23 12:00 Resp 29 H 01/05/23 12:00 BP 130/82 01/05/23 12:00 Pulse Ox 93 01/05/23 12:00 O2 Del Method Oxymask 01/05/23 12:00 O2 Flow Rate 5 01/05/23 12:00 FiO2 30 01/05/23 09:31 BMI result Body Mass Index 24.5 Const: General: no acute distress, alert and awake Eyes: Sclerae: sclerae normal EOM: EOMs intact bilaterally Neck: Neck: Yes no lymphadenopathy, Yes trachea midline and Yes supple Resp: Effort & Inspection: normal respiratory effort and no respiratory distress Auscultation: other ( Left-sided crackles) Cardio: Rate: regular rate Rhythm: regular rhythm Heart sounds: no gallops, no murmurs and no rubs GI: Palpation (GI): Soft to palpation and Other GI palpation findings present ( Nontender) Auscultation: normal bowel sounds Extrem: General: Yes no pedal edema, No clubbing and No cyanosis Objective Data Labs 01/05/23 04:17 01/05/23 04:17 Labs: Laboratory Results - last 24 hr 01/05/23 01/05/23 01/05/23 04:14 04:17 04:17 WBC 10.2 RBC 3.19 L Hgb 9.4 L Hct 28.5 L MCV 89.3 MCH 29.5 MCHC 33.0 RDW 15.7 Plt Count 283 MPV 11.5 Immature Gran % (Auto) 0.5 H Neut % (Auto) 66.6 Lymph % (Auto) 16.5 L [place] % (Auto) 13.9 H Eos % (Auto) 1.9 Baso % (Auto) 0.6 Lymph # (Auto) 1.7 [place] # (Auto) 1.4 H Eos # (Auto) 0.2 Baso # (Auto) 0.1 Abs Immat Gran (auto) 0.05 H Absolute Neuts (auto) 6.8 Absolute Nucleated RBC 0.000 Nucleated RBC % (auto) 0.0 PT 16.9 H INR 1.5 H APTT VBG pH 7.48 H VBG pCO2 39 VBG pO2 44 VBG HCO3 29 H VBG O2 Saturation 71.0 VBG Base Excess 5.7 Sodium Potassium Chloride Carbon Dioxide Anion Gap BUN Creatinine Estim Creat Clear Calc Estimated GFR Random Glucose Calcium Phosphorus Magnesium Total Bilirubin AST ALT Alkaline Phosphatase Total Protein Albumin Blood Type Antibody Screen 01/05/23 01/05/23 01/05/23 04:17 04:17 04:17 WBC RBC Hgb Hct MCV MCH MCHC RDW Plt Count MPV Immature Gran % (Auto) Neut % (Auto) Lymph % (Auto) [place] % (Auto) Eos % (Auto) Baso % (Auto) Lymph # (Auto) [place] # (Auto) Eos # (Auto) Baso # (Auto) Abs Immat Gran (auto) Absolute Neuts (auto) Absolute Nucleated RBC Nucleated RBC % (auto) PT INR APTT 33.5 VBG pH VBG pCO2 VBG pO2 VBG HCO3 VBG O2 Saturation VBG Base Excess Sodium 145 Potassium 3.3 Chloride 108 Carbon Dioxide 28 Anion Gap 12 BUN 10 Creatinine 0.80 Estim Creat Clear Calc 94.1 Estimated GFR > 60 Random Glucose 121 H Calcium 7.6 L Phosphorus 3.1 Magnesium 2.1 Total Bilirubin 0.6 AST 14 ALT 10 Alkaline Phosphatase 36 L Total Protein 5.2 L Albumin 3.1 L Blood Type O Positive Antibody Screen NEGATIVE Microbiology Microbiology Results: Microbiology 01/03/23 02:07 Sputum - Suctioned Gram Stain - Final 01/03/23 02:07 Sputum - Suctioned Sputum Culture - Preliminary Culture in progress. 01/03/23 19:36 Blood - Venous Blood Culture - Preliminary No growth after 24 hours. 01/03/23 19:36 Blood - Venous Blood Culture - Preliminary No growth after 24 hours. 12/30/22 17:26 Blood - Venous Blood Culture - Final No growth after 5 days. 12/30/22 17:32 Blood - Venous Blood Culture - Final No growth after 5 days. Progress Note: A&P Assessment and plan (1) Hepatitis C: Status: Acute (2) HIV (human immunodeficiency virus infection): Status: Acute (3) Loculated pleural effusion: Status: Acute (4) Pneumonia: Status: Acute (5) Abscess of lung: Status: Acute Plan Assessment: 57-year-old gentleman admitted with outpatient treatment failure for community-acquired pneumonia resulting development of loculated pleural effusion with hospital course significant for development of respiratory distress now requiring ventilatory support. Plan: Neuro: No acute issues. Cardiac: Continue to titrate off pressor support as tolerated. Pulmonary: Loculated left-sided pleural effusion on the background of pneumonia/lung abscess. Being planned for decortication. Extubated this a.m. Renal: No acute issues. Endo: No acute issues. GI: No acute issues. ID: underlying HIV, hepatitis-C. Now with failure out of outpatient antibiotic treatment for community-acquired pneumonia. Continue with broad-spectrum antibiotics. Cultures are negative to date. Heme/Onc: No acute issues. Psych: No acute issues. Miscellaneous: No acute issues. Prophylaxis: Lovenox, famotidine Diet: NPO Critical care time spent: 45 minutes Quality Stroke Does the patient have a stroke diagnosis?: No VTE Prior VTE?: No VTE Risk Level:: Medical - moderate - high VTE Device Contraindication: Treatment Not Indicated VTE Drug Contraindication: N/A - Med Ordered
[2023-01-05] MEDS: fentaNYL citrate/PF 100 MCG/2 ML VIAL 25 MCG IVPUSH (12:47)
--- NOTE | 2023-01-05 15:48 | W.PM.OPN ---
Operative Note Operative Note Date of Service: 01/05/23 Narrative: Preoperative diagnosis: [] Empyema left hemithorax Postop diagnosis: [] Same Procedure [] exploratory left thoracotomy, empyemectomy, decortication left lung, pneumonolysis, drainage of multiloculated pleural effusion, multilevel intercostal nerve block Surgeon: [] Desean Evp Chief Exploration Officer: [] Waqar Aguilar Type of Anesthesia: [] General Indication for surgery: [] Left empyema Findings: []) Intraoperative findings demonstrated dense and extensive adhesions of the left lung to the diaphragmatic and mediastinal surfaces. Once pnuemonolysis was completed, empyemectomy was undertaken with specimen sent for culture and permanent specimen. Entire left lower lobe, lingula, and the majority of the left upper lobe were encased in a multilayered thick rind necessitating decortication. Several 100 cc of multi loculated pleural effusion also drained. At completion of the procedure, there was complete expansion of the entire left lung with minimal air leak.. No lung abscess was identified. Patient brought to the operating room, placed on operative table in supine position, after adequate level of general anesthesia was induced, patient was placed in right lateral decubitus position. After appropriate positioning, the left chest was prepped and draped in usual sterile fashion. Using small thoracotomy incision approximately 1 fingerbreadth below the scapular tip, this carried down through skin, subcutaneous tissue, and the latissimus dorsi muscle was transected using Bovie. Serrated anterior muscle was retracted anteriorly with [place] drain and preserved throughout the procedure. Sixth intercostal space was opened along the upper margin of the 7th rib using electro Bovie. Sixth rib was transected posteriorly and intercostal artery was clipped x2. Packs and retractors were placed to enhance exposure with findings as noted above. Pneumonolysis was initially performed to free up the lung which was densely adhered to the mediastinal and diaphragmatic surface. Next empyema which consisted of copious amounts of for fibrino- purulent debris was evacuated from the hemithorax. Decortication of essentially entire left lung was performed using blunt and sharp dissection of multilayered rind. At completion the procedure, lung was fully expanded and fill the entire chest cavity with minimal air leak. Chest cavity was copiously irrigated, and secured for hemostasis. Through separate stab wound incisions, anterior and posterior 28 [place] chest tubes were placed in the chest and secured to the skin using 0 silk sutures. Chest wound was closed the following manner; over and over 1. Maxon suture x4 were used to reapproximate the ribs. This latissimus dorsi muscle was reapproximated using running 1. Maxon suture. Running deep dermal 2-0 Vicryl suture followed by running subcuticular 4-0 Vicryl sutures were placed. States strips and sterile dressings were applied. Multilevel Intercostal nerve block using 0.5% Marcaine was performed at completion of the procedure. Chest tubes were connected to Pleur-evac and minimal air leak was demonstrated. Sponge, needle, instrument counts were reported to be correct. Patient tolerated the procedure well and was transferred directly transferred to ICU intubated in stable condition. EBL minimal
[2023-01-05] MEDS: propofoL 1,000 MG/100 ML VIAL 12.78 MG IVCONT ×2 (16:16→22:15)
[2023-01-05] MEDS: fentaNYL citrate/NS 1,000 MCG/100 ML PLAST..BAG 2.5 MCG IVCONT (16:17)
[2023-01-05 16:46] LABS: VBG Base Excess 1.9 mmol/L; VBG HCO3 27 mmol/L (22-26); VBG pCO2 47 mmHg; VBG pH 7.37 (7.32-7.43); VBG pO2 48 mmHg
--- NOTE | 2023-01-05 18:24 | PC.NURSE ---
Pt extubated at 0958 per plan for consent as unable to reach primary contact(sister)Ute for a consent. Pt extubated and consented with no acute distress, weaned to 5L Oxymask and tolerated well. While awake, able to retrieve updated phone number of sister from pt, chart now updated. Pt weaned of Levophed gtt per MAP goal. Pt brought to OR for decortication at approximately 1330. Pt returned at 1545, intubated and with chest tube. Pt started back on sedation (see MAR); Levophed gtt titrated by MD as MAP was low; unable to wean off at this time. Pt has the 7.5 ETT, 25 at the lip, on AC 16/400/8/50% and tolerating. Chest Tube draining bright red blood in the dual chamber system, no leaks noted; dressing CDI. LS dim to the left. Pt's keofeed at 75cm via R nare, continues to be clamped and TF holding per MD's order. Pt SB/ SR on tele. Pt's burnham intact and draining clear yellow urine. Pt has blanchable redness to the coccyx, barrier cream applied. Pt bathed and repositioned every 2 hrs and as needed, prevalon system utilized. Safety maintained throughout. Will continue to monitor.
[2023-01-05 21:27] LABS: Venous Blood Gas Refer to POC result
[2023-01-05] MEDS: Enoxaparin Sodium 40 MG/0.4 ML SYRINGE SUBCUT (22:19)
[2023-01-05 23:57] LABS: Glucose, Whole Blood 141 mg/dL (60-115)
[2023-01-06] VITALS (45 sets, daily range): BP systolic 94–148; BP diastolic 53–83; PULSE 44–116; RESP 12–95; TEMP 34.4–38.1; O2SAT 16–98; BMI 24.5
[2023-01-06] MEDS: Norepinephrine Bitartrate/D5W 8 MG/250 ML PLAST..BAG 11.06 MG IVCONT (02:00)
[2023-01-06] MEDS: Piperacillin Sodium/Tazobactam 4.5 GM in 0.9 % Sodium Chloride 100 ML IV ×4 (03:05→21:37)
--- NOTE | 2023-01-06 04:34 | PC.NURSE ---
ASSUMED CARE OF PT AT 1900. PT ON AC VENT SETTINGS WITH NO RESP DIFFICULTIES. FIO2 WEANED TO 30% (FROM 50%). CHEST TUBES X2 LEFT LAT CHEST. ONE CT, #2, DRAINING BLOODY RETURNS, ONLY 15 ML SO FAR THIS SHIFT (185ML PRIOR SHIFT). CHEST TUBE #1 WITH NO DRAINAGE. PT AWAKE AND FOLLOWING SIMPLE COMMANDS. ON PROPOFOL AND FENTANYL FOR SEDATION. HAD RUN OF BRADYCARDIA DOWN TO 40 BPM, SHORT LIVED. HEART RATE HAS BEEN 60-70'S NSR. PROPOFOL DECREASED AND FENTANYL INCREASED TO REACH GOOD SEDATION EFFECT. BP STABLE ON LEVOPHED. TEMP LOW GRADE 100 CORE. KAOFEED UNABLE TO BE FLUSHED. SPOKE TO LADAN DORANTES AND PLAN IS TO EXTUBATE PT TODAY. URINE OUTPUT BORDERLINE, 20-50 ML/HR. ASSOCIATE MERCHANDISE PLANNER JAYNA AWARE AND 24HR I/O CHECKED. PT IS NEGATIVE FLUID BALANCE. SKIN HAS BLISTER ON LEFT BUTTOCKS. SEE PICTURE TAKEN. FOAM DSG APPLIED. PT TURNED AND REPOS Q2HR.
[2023-01-06] MEDS: propofoL 1,000 MG/100 ML VIAL 10.65 MG IVCONT (05:05)
[2023-01-06 05:27] LABS: VBG Base Excess 2.8 mmol/L; VBG HCO3 24 mmol/L (22-26); VBG pCO2 29 mmHg; VBG pH 7.53 (7.32-7.43); VBG pO2 86 mmHg
[2023-01-06 05:28] LABS: Venous Blood Gas Refer to POC result
[2023-01-06] MEDS: fentaNYL citrate/NS 1,000 MCG/100 ML PLAST..BAG 10 MCG IVCONT (05:35)
[2023-01-06 05:54] LABS: MANUAL DIFF FLAG NO
[2023-01-06 05:56] LABS: Basophils Absolute Auto 0.1 X10*3/uL (0.0-0.2); Basophils Percent Auto 0.3 % (0-2); Eosinophils Absolute Auto 0.1 X10*3/uL (0.0-0.4); Eosinophils Percent Auto 0.8 % (0-4); Hematocrit 32.5 % (42.0-52.0); Hemoglobin 10.4 g/dl (14.0-18.0); Imm Gran Pct Auto 0.6 % (0.0-0.4); Lymphocytes Absolute Auto 1.5 X10*3/uL (1.2-4.9); Lymphocytes Percent Auto 8.9 % (20-40); Mean Corpuscular Hemoglobin 29.2 pg (27.0-33.0); Mean Corpuscular Volume 91.3 fL (80.0-98.0); Monocytes Absolute Auto 1.4 X10*3/uL (0.1-1.2); Monocytes Percent Auto 8.7 % (2-11); Neutrophils Absolute Auto 13.4 x10*3/uL (2.0-8.3); Neutrophils Percent Auto 80.7 % (45-73); Platelet Count 347 X10*3/uL (160-400); Red Blood Count 3.56 X10*6/uL (4.60-5.80); Red Cell Distribution Width 15.9 % (11.0-16.0); White Blood Count 16.6 X10*3/uL (4.8-10.8)
[2023-01-06 06:14] LABS: Alanine Aminotransferase 14 U/L (0-40); Albumin Level 2.9 g/dL (3.5-5.0); Alkaline Phosphatase 40 U/L (39-117); Anion Gap 15 (12-20); Aspartate Amino Transferase 29 U/L (5-37); Bilirubin Total 0.7 mg/dL (0.0-1.0); Blood Urea Nitrogen 12 mg/dL (9-16); Calcium 7.6 mg/dL (8.4-10.2); Carbon Dioxide 25 mmol/L (22-29); Chloride 108 mmol/L (96-108); Creatinine Clr Calc Pharmacy 101.7; Estimated Glomerular Filt Rate > 60; Glucose Random 130 mg/dL (60-115); Magnesium 1.9 mg/dL (1.6-2.6); Phosphorus 3.6 mg/dL (2.7-4.5); Potassium 3.9 mmol/L (3.3-5.1); Sodium 144 mmol/L (135-145); Total Protein 5.1 g/dL (6.5-8.0)
[2023-01-06] MEDS: Albumin Human 25 % 100 ML IV ×3 (07:23→20:19)
[2023-01-06] MEDS: 0.9 % Sodium Chloride Flush 3 ML SYRINGE IVFLUSH ×2 (07:26→15:29)
[2023-01-06] MEDS: Latanoprost 0.005 % Ophth Sol 2.5 ML DROPS 1 DROP EYE-BOTH (08:03)
[2023-01-06] MEDS: Famotidine/PF 20 MG/2 ML VIAL IVPUSH (08:03)
[2023-01-06] MEDS: Chlorhexidine Gluc Oral Rinse 15 ML MOUTHWASH BUCCAL (08:03)
[2023-01-06] MEDS: Bictegrav/Emtricit/Tenofov Ala TABLET 1 TAB PO (08:04)
[2023-01-06] MEDS: Albuterol/Iprat 2.5/0.5MG 3 ML AMPUL.NEB INHALE ×4 (08:04→19:15)
[2023-01-06] MEDS: fentaNYL citrate/PF 100 MCG/2 ML VIAL 50 MCG IVPUSH ×3 (09:28→18:34)
[2023-01-06] MEDS: HYDROmorphone HCl 0.5 MG/0.5 ML SYRINGE IVPUSH (12:06)
--- NOTE | 2023-01-06 13:19 | PM.CCPN ---
Subjective Subjective Date of Service: 01/06/23 Interval History: 57-year-old gentleman with underlying HIV with CD4 of 377 on HAART, hep C, recently treated on outpatient basis for community-acquired pneumonia admitted on 12/30/2022 with left-sided chest pain and noted to have on CT chest left lower lobe abscess and loculated pleural effusion. Patient started empiric antibiotics and admitted to [facility] medical [facility]. hospital course significant for worsening mental status and development of aspiration on 01/03/2023 requiring intubation and ventilatory support. Patient transferred to care unit. Bedside bronchoscopy with only minimal thin secretions. follow-up CT chest with worsening left-sided loculated pleural effusion. Evaluated by thoracic surgery and had decortication on 01/05/2023. No events overnight. Extubated this a.m.. Critical Care Time (minutes): 45 Physical Exam Vital Signs: Vital Signs: Last Vital Signs Temp 97.5 F 01/06/23 12:00 Pulse 71 01/06/23 13:00 Resp 23 H 01/06/23 13:00 BP 119/75 01/06/23 13:00 Pulse Ox 95 01/06/23 13:00 O2 Del Method Nasal Cannula 01/06/23 13:00 O2 Flow Rate 4 01/06/23 13:00 FiO2 30 01/06/23 10:00 Oxygen Flow Rate 2 01/06/23 12:23 BMI result Body Mass Index 24.5 Const: General: no acute distress, alert and awake Eyes: Sclerae: sclerae normal EOM: EOMs intact bilaterally Neck: Neck: Yes no lymphadenopathy, Yes trachea midline and Yes supple Resp: Effort & Inspection: normal respiratory effort and no respiratory distress Auscultation: crackles ( Left-sided) Cardio: Rate: regular rate Rhythm: regular rhythm Heart sounds: no gallops, no murmurs and no rubs GI: Palpation (GI): Soft to palpation and Other GI palpation findings present ( Nontender) Auscultation: normal bowel sounds Extrem: General: Yes no pedal edema, No clubbing and No cyanosis Objective Data Labs 01/06/23 05:13 01/06/23 05:13 Labs: Laboratory Results - last 24 hr 01/05/23 01/05/23 01/06/23 16:37 23:48 05:13 WBC 16.6 H RBC 3.56 L Hgb 10.4 L Hct 32.5 L MCV 91.3 MCH 29.2 MCHC 32.0 RDW 15.9 Plt Count 347 MPV 12.0 Immature Gran % (Auto) 0.6 H Neut % (Auto) 80.7 H Lymph % (Auto) 8.9 L [place] % (Auto) 8.7 Eos % (Auto) 0.8 Baso % (Auto) 0.3 Lymph # (Auto) 1.5 [place] # (Auto) 1.4 H Eos # (Auto) 0.1 Baso # (Auto) 0.1 Abs Immat Gran (auto) 0.10 H Absolute Neuts (auto) 13.4 H Absolute Nucleated RBC 0.000 Nucleated RBC % (auto) 0.0 VBG pH 7.37 VBG pCO2 47 VBG pO2 48 VBG HCO3 27 H VBG O2 Saturation 71.0 VBG Base Excess 1.9 Sodium Potassium Chloride Carbon Dioxide Anion Gap BUN Creatinine Estim Creat Clear Calc Estimated GFR POC Glucose 141 H Random Glucose Calcium Phosphorus Magnesium Total Bilirubin AST ALT Alkaline Phosphatase Total Protein Albumin 01/06/23 01/06/23 05:13 05:16 WBC RBC Hgb Hct MCV MCH MCHC RDW Plt Count MPV Immature Gran % (Auto) Neut % (Auto) Lymph % (Auto) [place] % (Auto) Eos % (Auto) Baso % (Auto) Lymph # (Auto) [place] # (Auto) Eos # (Auto) Baso # (Auto) Abs Immat Gran (auto) Absolute Neuts (auto) Absolute Nucleated RBC Nucleated RBC % (auto) VBG pH 7.53 H VBG pCO2 29 VBG pO2 86 VBG HCO3 24 VBG O2 Saturation 97.0 VBG Base Excess 2.8 Sodium 144 Potassium 3.9 Chloride 108 Carbon Dioxide 25 Anion Gap 15 BUN 12 Creatinine 0.74 Estim Creat Clear Calc 101.7 Estimated GFR > 60 POC Glucose Random Glucose 130 H Calcium 7.6 L Phosphorus 3.6 Magnesium 1.9 Total Bilirubin 0.7 AST 29 ALT 14 Alkaline Phosphatase 40 Total Protein 5.1 L Albumin 2.9 L Microbiology Microbiology Results: Microbiology 01/05/23 Unknown Lung - Left Gram Stain - Final 01/05/23 Unknown Lung - Left Routine Culture - Preliminary No growth to date. 01/03/23 02:07 Sputum - Suctioned Gram Stain - Final 01/03/23 02:07 Sputum - Suctioned Sputum Culture - Preliminary Culture in progress. 01/03/23 19:36 Blood - Venous Blood Culture - Preliminary No growth after 48 hours. 01/03/23 19:36 Blood - Venous Blood Culture - Preliminary No growth after 48 hours. 12/30/22 17:26 Blood - Venous Blood Culture - Final No growth after 5 days. 12/30/22 17:32 Blood - Venous Blood Culture - Final No growth after 5 days. Progress Note: A&P Assessment and plan (1) Hepatitis C: Status: Acute (2) HIV (human immunodeficiency virus infection): Status: Acute (3) Loculated pleural effusion: Status: Acute (4) Pneumonia: Status: Acute (5) Abscess of lung: Status: Acute (6) Acute respiratory failure with hypoxia: Status: Acute Plan Assessment: 57-year-old gentleman admitted with outpatient treatment failure for community-acquired pneumonia resulting development of loculated pleural effusion with hospital course significant for development of respiratory distress now requiring ventilatory support. Plan: Neuro: No acute issues. Cardiac: Continue to titrate off pressor support as tolerated. Pulmonary: Loculated left-sided pleural effusion on the background of pneumonia/lung abscess. Status post decortication on 01/05/2023. Thoracic surgery service care appreciated. Extubated this a.m. Renal: No acute issues. Endo: No acute issues. GI: No acute issues. ID: underlying HIV, hepatitis-C. Now with failure out of outpatient antibiotic treatment for community-acquired pneumonia. Continue with broad-spectrum antibiotics. Cultures are negative to date. Heme/Onc: No acute issues. Psych: No acute issues. Miscellaneous: No acute issues. Prophylaxis: Lovenox, famotidine Diet: pending swallow evaluation Critical care time spent: 45 minutes Quality Stroke Does the patient have a stroke diagnosis?: No VTE Prior VTE?: No VTE Risk Level:: Medical - moderate - high VTE Device Contraindication: Treatment Not Indicated VTE Drug Contraindication: N/A - Med Ordered
--- NOTE | 2023-01-06 14:49 | HO.POSTANES ---
Post Anesthesia Evaluation Post Anesthesia Evaluation Vital Signs: Vital Signs Temp Pulse Resp BP Pulse Ox O2 Del Method O2 Flow Rate 01/06/23 14:11 80 133/74 01/06/23 12:45 75 122/81 01/06/23 12:44 18 01/06/23 12:14 78 19 01/06/23 12:06 25 H 01/06/23 09:30 70 110/70 01/06/23 09:21 70 131/75 01/06/23 09:22 70 16 131/75 95 01/06/23 08:12 68 16 01/06/23 08:04 01/06/23 07:57 01/06/23 14:00 80 24 H 133/74 92 Nasal Cannula 2 01/06/23 13:00 71 23 H 119/75 95 Nasal Cannula 4 01/06/23 12:00 97.5 F 86 24 H 129/75 90 L Nasal Cannula 2 01/06/23 11:00 116 H 21 H 125/71 92 Nasal Cannula 2 01/06/23 10:00 76 12 112/67 93 Mechanical Ventilation 01/06/23 09:00 99.5 F 67 16 131/75 95 Mechanical Ventilation 01/06/23 08:00 99.7 F 68 16 132/76 94 Mechanical Ventilation 01/06/23 07:00 99.4 F 63 16 108/66 95 Mechanical Ventilation 01/06/23 12:23 94 Nasal Cannula 01/06/23 06:38 52 16 104/64 94 01/06/23 05:52 99.5 F 65 16 118/72 95 Mechanical Ventilation 01/06/23 05:35 63 95 H 118/72 16 L 01/06/23 05:35 63 16 118/72 95 01/06/23 05:05 66 16 103/66 94 01/06/23 05:05 66 16 103/66 94 01/06/23 03:59 01/06/23 03:41 01/06/23 04:59 99.5 F 69 16 119/73 92 Mechanical Ventilation 01/06/23 03:58 99.7 F 71 18 104/66 93 Mechanical Ventilation 01/06/23 03:00 99.9 F 66 16 127/76 96 Mechanical Ventilation FiO2 01/06/23 14:11 01/06/23 12:45 01/06/23 12:44 01/06/23 12:14 01/06/23 12:06 01/06/23 09:30 01/06/23 09:21 01/06/23 09:22 01/06/23 08:12 01/06/23 08:04 30 01/06/23 07:57 30 01/06/23 14:00 01/06/23 13:00 01/06/23 12:00 01/06/23 11:00 01/06/23 10:00 30 01/06/23 09:00 30 01/06/23 08:00 30 01/06/23 07:00 30 01/06/23 12:23 01/06/23 06:38 01/06/23 05:52 30 01/06/23 05:35 01/06/23 05:35 01/06/23 05:05 01/06/23 05:05 01/06/23 03:59 30 01/06/23 03:41 30 01/06/23 04:59 30 01/06/23 03:58 30 01/06/23 03:00 30 Anesthesia: General Endotracheal-GETA Mental Status: Awake Pain Control: Satisfactory Nausea/Vomiting: None Hydration: Adequate Anesthesia-Related Issues: No Anes. Related Issues
--- NOTE | 2023-01-06 15:43 | PM.PNGS ---
Subjective Subjective Date of Service: 01/06/23 Interval history: pt doing well, complaining of some pain but doing well, extubated in am Physical Exam Vital Signs: Vital Signs: Last Vital Signs Temp 97.5 F 01/06/23 12:00 Pulse 79 01/06/23 15:00 Resp 20 01/06/23 15:29 BP 110/63 01/06/23 15:00 Pulse Ox 93 01/06/23 15:00 O2 Del Method Nasal Cannula 01/06/23 15:00 O2 Flow Rate 2 01/06/23 15:00 FiO2 30 01/06/23 10:00 Oxygen Flow Rate 2 01/06/23 12:23 BMI result Body Mass Index 24.5 Chest: Other: exam of dressings intact air entry bilaterally , muffled a bit on left side pt looks comfortable breathing on n/c and saturating well Objective Data Active Medications Albuterol/Ipratropium (Albuterol/Iprat 2.5/0.5mg 3 Ml Ampul.Neb) 3 ml INHALE RQ4H WHILE AWAKE [facility] Last Admin: 01/06/23 12:13 Dose: 3 ml Documented By: NALLELY Albuterol/Ipratropium (Albuterol/Iprat 2.5/0.5mg 3 Ml Ampul.Neb) 3 ml INHALE Q4H PRN PRN Reason: Wheezing Last Admin: 01/03/23 01:38 Dose: 3 ml Documented By: GEENA Bictegravir/Emtricitabine/Tenofovir (Bictegrav/Emtricit/Tenofov Ala Tablet) 1 tab PO DAILY [facility] Last Admin: 01/06/23 08:04 Dose: 1 tab Documented By: LALY Enoxaparin Sodium (Enoxaparin Sodium 40 Mg/0.4 Ml Syringe) 40 mg SUBCUT Q24H [facility] Last Admin: 01/05/23 22:19 Dose: 40 mg Documented By: SHARON Fentanyl (Fentanyl Citrate/Pf 100 Mcg/2 Ml Vial) 50 mcg IVPUSH Q5M PRN; Protocol PRN Reason: Pain, Moderate (Pain Scale 4-6 Last Admin: 01/06/23 15:29 Dose: 50 mcg Documented By: LALY Piperacillin Sod/Tazobactam (Sod 4.5 gm/ Sodium Chloride) 100 mls @ 200 mls/hr IV Q6H [facility] Last Infusion: 01/06/23 14:52 Dose: 0 mls/hr Documented By: LALY Norepinephrine Bitartrate (Levophed) 8 mg in 250 mls @ 0 mls/hr IVCONT .Q0M [facility]; Protocol Last Titration: 01/06/23 15:00 Dose: 0 mcg/kg/min, 0 mls/hr Documented By: LALY Promethazine HCl 6.25 mg/ (Sodium Chloride) 50.25 mls @ 201 mls/hr IV ONCE PRN PRN Reason: Nausea and Vomiting Fentanyl (Sublimaze/Ns) 1,000 mcg in 100 mls @ 0 mls/hr IVCONT .Q0M [facility]; Protocol Last Titration: 01/06/23 06:24 Dose: 75 mcg/hr, 7.5 mls/hr Documented By: SHARON Albumin Human (Kedbumin 25 %) 100 mls @ 100 mls/hr IV Q6H [facility] Stop: 01/07/23 02:59 Last Infusion: 01/06/23 15:24 Dose: 0 mls/hr Documented By: LALY Latanoprost (Latanoprost 0.005 % Ophth Carol 2.5 Ml Drops) 1 drop EYE-BOTH DAILY [facility] Last Admin: 01/06/23 08:03 Dose: 1 drop Documented By: LALY Naloxone HCl (Naloxone Hcl 0.4 Mg/Ml Vial) 0.2 mg IVPUSH Q2M PRN PRN Reason: Excessive sedation or RR < 8 Ondansetron HCl (Ondansetron Hcl 4 Mg/2 Ml Vial) 4 mg IVPUSH ONCE PRN PRN Reason: Nausea and Vomiting Sodium Chloride (0.9 % Sodium Chloride Flush 3 Ml Syringe) 3 ml IVFLUSH QSHIFT [facility] Last Admin: 01/06/23 15:29 Dose: 3 ml Documented By: LALY Labs 01/06/23 05:13 01/06/23 05:13 Labs: Laboratory Results - last 24 hr 01/05/23 01/05/23 01/06/23 16:37 23:48 05:13 MCV 91.3 MCH 29.2 MCHC 32.0 RDW 15.9 Plt Count 347 MPV 12.0 Immature Gran % (Auto) 0.6 H Neut % (Auto) 80.7 H Lymph % (Auto) 8.9 L [place] % (Auto) 8.7 Eos % (Auto) 0.8 Baso % (Auto) 0.3 Lymph # (Auto) 1.5 [place] # (Auto) 1.4 H Eos # (Auto) 0.1 Baso # (Auto) 0.1 Abs Immat Gran (auto) 0.10 H Absolute Neuts (auto) 13.4 H Absolute Nucleated RBC 0.000 Nucleated RBC % (auto) 0.0 VBG pH 7.37 VBG pCO2 47 VBG pO2 48 VBG HCO3 27 H VBG O2 Saturation 71.0 VBG Base Excess 1.9 Anion Gap Estim Creat Clear Calc Estimated GFR POC Glucose 141 H Random Glucose Calcium Phosphorus Magnesium Total Bilirubin AST ALT Alkaline Phosphatase Total Protein Albumin 01/06/23 01/06/23 05:13 05:16 MCV MCH MCHC RDW Plt Count MPV Immature Gran % (Auto) Neut % (Auto) Lymph % (Auto) [place] % (Auto) Eos % (Auto) Baso % (Auto) Lymph # (Auto) [place] # (Auto) Eos # (Auto) Baso # (Auto) Abs Immat Gran (auto) Absolute Neuts (auto) Absolute Nucleated RBC Nucleated RBC % (auto) VBG pH 7.53 H VBG pCO2 29 VBG pO2 86 VBG HCO3 24 VBG O2 Saturation 97.0 VBG Base Excess 2.8 Anion Gap 15 Estim Creat Clear Calc 101.7 Estimated GFR > 60 POC Glucose Random Glucose 130 H Calcium 7.6 L Phosphorus 3.6 Magnesium 1.9 Total Bilirubin 0.7 AST 29 ALT 14 Alkaline Phosphatase 40 Total Protein 5.1 L Albumin 2.9 L Microbiology Microbiology Results: Microbiology 01/05/23 Unknown Gram Stain - Final Lung - Left Routine Culture - Preliminary No growth to date. 01/03/23 02:07 Gram Stain - Final Sputum - Suctioned Sputum Culture - Preliminary Culture in progress. 01/03/23 19:36 Blood Culture - Preliminary Blood - Venous No growth after 48 hours. 01/03/23 19:36 Blood Culture - Preliminary Blood - Venous No growth after 48 hours. Procedures Date of Service Date of Service: 01/06/23 Progress Note: A&P Assessment and plan (1) Empyema lung: Status: Acute Plan 57 year old male POD#1 s/p left decortication - doing very well, extubated and on n/c 185 cc of sanguionous blood in CT reservoir no air leak noted plan to cont med management with antibx. cont CT to suction CXR in am Time Spent With Patient Time: Total time managing care of this patient today ____ minutes. Quality Stroke Does the patient have a stroke diagnosis?: No VTE Prior VTE?: No VTE Risk Level:: Medical - moderate - high VTE Device Contraindication: Treatment Not Indicated VTE Drug Contraindication: N/A - Med Ordered
[2023-01-06] MEDS: fentaNYL citrate/NS 1,000 MCG/100 ML PLAST..BAG 7.5 MCG IVCONT (18:34)
[2023-01-06] MEDS: Midazolam HCl/PF 2 MG/2 ML VIAL 1 MG IVPUSH (19:54)
[2023-01-06] MEDS: Butalb/Acetamin/Caff 50/325/40 TABLET 1 TAB PO (21:35)
[2023-01-06] MEDS: Enoxaparin Sodium 40 MG/0.4 ML SYRINGE SUBCUT (22:24)
[2023-01-07] VITALS (29 sets, daily range): BP systolic 92–192; BP diastolic 54–102; PULSE 62–95; RESP 15–23; TEMP 36.4–37.2; O2SAT 90–98; BMI 24.4
[2023-01-07] MEDS: Melatonin 3 MG TABLET 6 MG NG-TUBE (00:28)
[2023-01-07] MEDS: Albumin Human 25 % 100 ML IV (00:29)
[2023-01-07 05:38] LABS: VBG Base Excess 8.7 mmol/L; VBG HCO3 33 mmol/L (22-26); VBG pCO2 48 mmHg; VBG pH 7.44 (7.32-7.43); VBG pO2 44 mmHg
[2023-01-07 05:39] LABS: Venous Blood Gas Refer to POC result
[2023-01-07] MEDS: 0.9 % Sodium Chloride Flush 3 ML SYRINGE IVFLUSH ×4 (05:40→20:24)
[2023-01-07] MEDS: Piperacillin Sodium/Tazobactam 4.5 GM in 0.9 % Sodium Chloride 100 ML IV ×4 (05:40→20:32)
[2023-01-07 06:08] LABS: MANUAL DIFF FLAG NO
[2023-01-07 06:27] LABS: Basophils Percent Auto 0.5 % (0-2); Eosinophils Absolute Auto 0.2 X10*3/uL (0.0-0.4); Hematocrit 26.5 % (42.0-52.0); Hemoglobin 8.3 g/dl (14.0-18.0); Imm Gran Abs Auto 0.03 X10*3/uL (0.00-0.03); Imm Gran Pct Auto 0.5 % (0.0-0.4); Lymphocytes Absolute Auto 1.3 X10*3/uL (1.2-4.9); Lymphocytes Percent Auto 18.8 % (20-40); Mean Corpuscular HGB Conc 31.3 g/dl (31.0-36.0); Mean Corpuscular Hemoglobin 28.6 pg (27.0-33.0); Mean Corpuscular Volume 91.4 fL (80.0-98.0); Mean Platelet Volume 11.1 fL (9.4-12.4); Monocytes Percent Auto 14.6 % (2-11); Neutrophils Absolute Auto 4.2 x10*3/uL (2.0-8.3); Neutrophils Percent Auto 62.6 % (45-73); Platelet Count 295 X10*3/uL (160-400); Red Cell Distribution Width 15.9 % (11.0-16.0); White Blood Count 6.7 X10*3/uL (4.8-10.8)
[2023-01-07 06:31] LABS: Alanine Aminotransferase 10 U/L (0-40); Albumin Level 3.7 g/dL (3.5-5.0); Alkaline Phosphatase 30 U/L (39-117); Anion Gap 12 (12-20); Aspartate Amino Transferase 26 U/L (5-37); Bilirubin Total 0.6 mg/dL (0.0-1.0); Blood Urea Nitrogen 13 mg/dL (9-16); Calcium 8.2 mg/dL (8.4-10.2); Carbon Dioxide 30 mmol/L (22-29); Chloride 108 mmol/L (96-108); Creatinine Clr Calc Pharmacy 115.8; Estimated Glomerular Filt Rate > 60; Glucose Random 110 mg/dL (60-115); Magnesium 2.1 mg/dL (1.6-2.6); Phosphorus 2.8 mg/dL (2.7-4.5); Potassium 3.6 mmol/L (3.3-5.1); Sodium 146 mmol/L (135-145); Total Protein 5.6 g/dL (6.5-8.0)
--- NOTE | 2023-01-07 07:15 | PC.NURSE ---
Assumed care of patient at this time.
[2023-01-07] MEDS: fentaNYL citrate/NS 1,000 MCG/100 ML PLAST..BAG 7.5 MCG IVCONT (07:27)
[2023-01-07] MEDS: Lactulose 20 GM/30 ML SOLUTION OG-TUBE (07:36)
[2023-01-07] MEDS: Bictegrav/Emtricit/Tenofov Ala TABLET 1 TAB PO (07:36)
[2023-01-07] MEDS: Latanoprost 0.005 % Ophth Sol 2.5 ML DROPS 1 DROP EYE-BOTH (07:52)
[2023-01-07] MEDS: Albuterol/Iprat 2.5/0.5MG 3 ML AMPUL.NEB INHALE ×2 (08:04→12:02)
--- NOTE | 2023-01-07 08:10 | PC.NURSE ---
Assumed care at 19:00. Patient alert, anxious, oriented x4, Slovenian speaking preferred, Denied pain at chest tube sites, but endorsed migraine, described as familiar migraine sensation to patient, also as anterior bilateral headache with light and sound sensitivity, GED TEACHER notified, new Fioricet order administered with good effect. Patient had reported trouble moving bowels since admission, GED TEACHER notified, new order for lactulose patient then deferred until morning. Patient with difficulty sleeping lately, attempted to minimize stimulation and keep lights and sounds low, GED TEACHER notified, new order for melatonin administered with good effect. Patient with copious oral secretions thick greer greenish. Patient educated about use of oral suctioning with yankauer, which he demonstrated good teachback , as well as educated with incentive spirometer with good teachback. Patient with 2 chest tubes draining to atrium system, no tidaling, GED TEACHER aware. TF to keofeed tube increased to 40 cc/hour per orders and well tolerated. Patient with dry oral cavity, mouth swabs with good effect and humidifier added with good effect.
[2023-01-07] MEDS: fentaNYL citrate/PF 100 MCG/2 ML VIAL 50 MCG IVPUSH ×5 (08:15→22:39)
--- NOTE | 2023-01-07 11:35 | P.PNCC_ITS ---
Subjective Subjective Date of Service: 01/07/23 Interval History: 57-year-old gentleman with underlying HIV with CD4 of 377 on HAART, hep C, recently treated on outpatient basis for community-acquired pneumonia admitted on 12/30/2022 with left-sided chest pain and noted to have on CT chest left lower lobe abscess and loculated pleural effusion. Patient started empiric antibiotics and admitted to general medical [facility]. hospital course significant for worsening mental status and development of aspiration on 01/03/2023 requiring intubation and ventilatory support. Patient transferred to care unit. Bedside bronchoscopy with only minimal thin secretions. follow-up CT chest with worse layne left-sided loculated pleural effusion. Evaluated by thoracic surgery and had decortication on 01/05/2023. No events overnight. Critical Care Time (minutes): 0 Physical Exam Vital Signs: Vital Signs: Last Vital Signs Temp 98.7 F 01/07/23 03:56 Pulse 77 01/07/23 10:53 Resp 16 01/07/23 11:21 BP 113/65 01/07/23 10:53 Pulse Ox 95 01/07/23 10:53 O2 Del Method Nasal Cannula 01/07/23 10:53 O2 Flow Rate 2 01/07/23 10:53 FiO2 30 01/06/23 10:00 Oxygen Flow Rate 2 01/07/23 10:20 BMI result Body Mass Index 24.4 Const: General: no acute distress, alert and awake Eyes: Sclerae: sclerae normal EOM: EOMs intact bilaterally Neck: Neck: Yes no lymphadenopathy, Yes trachea midline and Yes supple Resp: Effort & Inspection: normal respiratory effort, no respiratory distress and other (Two left-sided chest tubes) Auscultation: other (Left-sided crackles) Cardio: Rate: regular rate Rhythm: regular rhythm Heart sounds: no gallops, no murmurs and no rubs GI: Palpation (GI): Soft to palpation and Other GI palpation findings present ( Nontender) Auscultation: normal bowel sounds Extrem: General: Yes no pedal edema, No clubbing and No cyanosis Objective Data Labs 01/07/23 05:30 01/07/23 05:30 Labs: Laboratory Results - last 24 hr 01/07/23 01/07/23 01/07/23 05:29 05:30 05:30 WBC 6.7 RBC 2.90 L Hgb 8.3 L D Hct 26.5 L MCV 91.4 MCH 28.6 MCHC 31.3 RDW 15.9 Plt Count 295 MPV 11.1 Immature Gran % (Auto) 0.5 H Neut % (Auto) 62.6 Lymph % (Auto) 18.8 L [place] % (Auto) 14.6 H Eos % (Auto) 3.0 Baso % (Auto) 0.5 Lymph # (Auto) 1.3 [place] # (Auto) 1.0 Eos # (Auto) 0.2 Baso # (Auto) 0.0 Abs Immat Gran (auto) 0.03 Absolute Neuts (auto) 4.2 Absolute Nucleated RBC 0.000 Nucleated RBC % (auto) 0.0 VBG pH 7.44 H VBG pCO2 48 VBG pO2 44 VBG HCO3 33 H VBG O2 Saturation 69.0 VBG Base Excess 8.7 Sodium 146 H Potassium 3.6 Chloride 108 Carbon Dioxide 30 H Anion Gap 12 BUN 13 Creatinine 0.65 Estim Creat Clear Calc 115.8 Estimated GFR > 60 Random Glucose 110 Calcium 8.2 L D Phosphorus 2.8 Magnesium 2.1 Total Bilirubin 0.6 AST 26 ALT 10 Alkaline Phosphatase 30 L Total Protein 5.6 L Albumin 3.7 Microbiology Microbiology Results: Microbiology 01/05/23 Unknown Lung - Left Gram Stain - Final 01/05/23 Unknown Lung - Left Routine Culture - Final No growth after 2 days 01/03/23 02:07 Sputum - Suctioned Gram Stain - Final 01/03/23 02:07 Sputum - Suctioned Sputum Culture - Preliminary Yeast 01/03/23 19:36 Blood - Venous Blood Culture - Preliminary No growth after 48 hours. 01/03/23 19:36 Blood - Venous Blood Culture - Preliminary No growth after 48 hours. 12/30/22 17:26 Blood - Venous Blood Culture - Final No growth after 5 days. 12/30/22 17:32 Blood - Venous Blood Culture - Final No growth after 5 days. Progress Note: A&P Assessment and plan (1) Empyema lung: Status: Acute (2) Hepatitis C: Status: Acute (3) HIV (human immunodeficiency virus infection): Status: Acute (4) Loculated pleural effusion: Status: Acute (5) Pneumonia: Status: Acute Plan Assessment: 57-year-old gentleman admitted with outpatient treatment failure for community-acquired pneumonia resulting development of loculated pleural effusion with hospital course significant for development of respiratory distress now requiring ventilatory support. Plan: Neuro: No acute issues. Cardiac: Titrated off vasopressor support. Pulmonary: Loculated left-sided pleural effusion on the background of pneumonia/lung abscess. Status post decortication on 01/05/2023. Thoracic surgery service care appreciated. Extubated 01/06/2023. Chest tube as per thoracic surgery. Renal: No acute issues. Endo: No acute issues. GI: No acute issues. ID: underlying HIV, hepatitis-C. Now with failure out of outpatient antibiotic treatment for community-acquired pneumonia. Continue with broad-spectrum antibiotics. Cultures are negative to date. Heme/Onc: No acute issues. Psych: No acute issues. Miscellaneous: No acute issues. Prophylaxis: Lovenox Diet: Tube feeds pending swallow evaluation At this time patient is stable for transfer to telemetry [facility]. Quality Stroke Does the patient have a stroke diagnosis?: No VTE Prior VTE?: No VTE Risk Level:: Medical - moderate - high VTE Device Contraindication: Treatment Not Indicated VTE Drug Contraindication: N/A - Med Ordered
--- NOTE | 2023-01-07 12:13 | PM.EVENT ---
Event Note Date of Service: 01/07/23 Event Note: Patient is being transfered out of ICU toay, days of treatment for empayema that needed intubation and decordication. He has NGT, NPO pending swallow eval. Vitals reviewed and stable. Transfer discussed with Dr. Monet Time Spent With Patient Time: Total time managing care of this patient today ____ minutes.
--- NOTE | 2023-01-07 12:36 | PM.PNGS ---
Subjective Subjective Date of Service: 01/07/23 Interval history: not speaking much but awake and doing well- plan to dc from icu later today Physical Exam Vital Signs: Vital Signs: Last Vital Signs Temp 98.0 F 01/07/23 12:20 Pulse 95 01/07/23 12:20 Resp 20 01/07/23 12:20 BP 122/73 01/07/23 12:20 Pulse Ox 95 01/07/23 12:20 O2 Del Method Nasal Cannula 01/07/23 12:20 O2 Flow Rate 2 01/07/23 12:20 FiO2 30 01/06/23 10:00 Oxygen Flow Rate 2 01/07/23 10:20 BMI result Body Mass Index 24.4 Resp: Other: better air entry apex of the lungs but still decreased at bases no air leaks noted ct fluid more serous and less bloody on suction Objective Data Active Medications Acetaminophen/Butalbital/Caffeine (Butalb/Acetamin/Caff 50/325/40 Tablet) 1 tab PO Q4H PRN PRN Reason: Headache Last Admin: 01/06/23 21:35 Dose: 1 tab Documented By: SANDHYA Albuterol/Ipratropium (Albuterol/Iprat 2.5/0.5mg 3 Ml Ampul.Neb) 3 ml INHALE RQ4H WHILE AWAKE [facility] Last Admin: 01/07/23 12:02 Dose: 3 ml Documented By: NALLELY Albuterol/Ipratropium (Albuterol/Iprat 2.5/0.5mg 3 Ml Ampul.Neb) 3 ml INHALE Q4H PRN PRN Reason: Wheezing Last Admin: 01/03/23 01:38 Dose: 3 ml Documented By: GEENA Bictegravir/Emtricitabine/Tenofovir (Bictegrav/Emtricit/Tenofov Ala Tablet) 1 tab PO DAILY [facility] Last Admin: 01/07/23 07:36 Dose: 1 tab Documented By: SAVAGE-RIVLA Enoxaparin Sodium (Enoxaparin Sodium 40 Mg/0.4 Ml Syringe) 40 mg SUBCUT Q24H [facility] Last Admin: 01/06/23 22:24 Dose: 40 mg Documented By: SANDHYA Fentanyl (Fentanyl Citrate/Pf 100 Mcg/2 Ml Vial) 50 mcg IVPUSH Q2H PRN; Protocol PRN Reason: Pain, Moderate (Pain Scale 4-6 Last Admin: 01/07/23 11:21 Dose: 50 mcg Documented By: NAIF Piperacillin Sod/Tazobactam (Sod 4.5 gm/ Sodium Chloride) 100 mls @ 200 mls/hr IV Q6H [facility] Last Infusion: 01/07/23 10:12 Dose: 0 mls/hr Documented By: NAIF Promethazine HCl 6.25 mg/ (Sodium Chloride) 50.25 mls @ 201 mls/hr IV ONCE PRN PRN Reason: Nausea and Vomiting Latanoprost (Latanoprost 0.005 % Ophth Carol 2.5 Ml Drops) 1 drop EYE-BOTH DAILY [facility] Last Admin: 01/07/23 07:52 Dose: 1 drop Documented By: NAIF Naloxone HCl (Naloxone Hcl 0.4 Mg/Ml Vial) 0.2 mg IVPUSH Q2M PRN PRN Reason: Excessive sedation or RR < 8 Ondansetron HCl (Ondansetron Hcl 4 Mg/2 Ml Vial) 4 mg IVPUSH ONCE PRN PRN Reason: Nausea and Vomiting Sodium Chloride (0.9 % Sodium Chloride Flush 3 Ml Syringe) 3 ml IVFLUSH QSHIFT [facility] Last Admin: 01/07/23 07:33 Dose: 3 ml Documented By: NAIF Labs 01/07/23 05:30 01/07/23 05:30 Labs: Laboratory Results - last 24 hr 01/07/23 01/07/23 01/07/23 05:29 05:30 05:30 MCV 91.4 MCH 28.6 MCHC 31.3 RDW 15.9 Plt Count 295 MPV 11.1 Immature Gran % (Auto) 0.5 H Neut % (Auto) 62.6 Lymph % (Auto) 18.8 L [place] % (Auto) 14.6 H Eos % (Auto) 3.0 Baso % (Auto) 0.5 Lymph # (Auto) 1.3 [place] # (Auto) 1.0 Eos # (Auto) 0.2 Baso # (Auto) 0.0 Abs Immat Gran (auto) 0.03 Absolute Neuts (auto) 4.2 Absolute Nucleated RBC 0.000 Nucleated RBC % (auto) 0.0 VBG pH 7.44 H VBG pCO2 48 VBG pO2 44 VBG HCO3 33 H VBG O2 Saturation 69.0 VBG Base Excess 8.7 Anion Gap 12 Estim Creat Clear Calc 115.8 Estimated GFR > 60 Random Glucose 110 Calcium 8.2 L D Phosphorus 2.8 Magnesium 2.1 Total Bilirubin 0.6 AST 26 ALT 10 Alkaline Phosphatase 30 L Total Protein 5.6 L Albumin 3.7 Microbiology Microbiology Results: Microbiology 01/05/23 Unknown Gram Stain - Final Lung - Left Routine Culture - Final No growth after 2 days 01/03/23 02:07 Gram Stain - Final Sputum - Suctioned Sputum Culture - Preliminary Yeast Procedures Date of Service Date of Service: 01/07/23 Progress Note: A&P Assessment and plan (1) Empyema lung: Status: Acute Assessment and Plan: pt sp decortication left lung and doing well - cxr looks good with small pleural fluid no ptx fluid coming out is serous and less bloody pt o2 good with n/c 75 cc of fluid total from ct in lat [address] Anton to see sunday but consider putting to water seal and see how lungs do. Time Spent With Patient Time: Total time managing care of this patient today ____ minutes. Quality Stroke Does the patient have a stroke diagnosis?: No VTE Prior VTE?: No VTE Risk Level:: Medical - moderate - high VTE Device Contraindication: Treatment Not Indicated VTE Drug Contraindication: N/A - Med Ordered
[2023-01-07] MEDS: Famotidine/PF 20 MG/2 ML VIAL IVPUSH ×2 (13:36→20:24)
--- NOTE | 2023-01-07 16:20 | PC.NURSE ---
Patient arrived to [facility] at this time vai bed and PROJECT DEVELOPMENT DIRECTOR
[2023-01-07] MEDS: Labetalol HCL 100 MG/20 ML VIAL 10 MG IVPUSH (20:23)
[2023-01-07] MEDS: Melatonin 3 MG TABLET 6 MG PO (20:33)
[2023-01-07] MEDS: Enoxaparin Sodium 40 MG/0.4 ML SYRINGE SUBCUT (20:40)
[2023-01-08] VITALS (7 sets, daily range): BP systolic 133–180; BP diastolic 65–92; PULSE 55–73; RESP 18–20; TEMP 36.1–36.8; O2SAT 93–97; BMI 24.4
[2023-01-08] MEDS: Zolpidem Tartrate 5 MG TABLET PO (00:05)
[2023-01-08] MEDS: Piperacillin Sodium/Tazobactam 4.5 GM in 0.9 % Sodium Chloride 100 ML IV ×4 (02:36→20:35)
[2023-01-08 06:35] LABS: MANUAL DIFF FLAG NO
[2023-01-08 06:41] LABS: Venous Blood Gas Refer to POC result
[2023-01-08 06:42] LABS: VBG Base Excess 7.3 mmol/L; VBG HCO3 29 mmol/L (22-26); VBG pCO2 31 mmHg; VBG pH 7.58 (7.32-7.43); VBG pO2 180 mmHg
[2023-01-08 07:02] LABS: Basophils Percent Auto 0.6 % (0-2); Eosinophils Absolute Auto 0.1 X10*3/uL (0.0-0.4); Eosinophils Percent Auto 1.8 % (0-4); Hematocrit 29.8 % (42.0-52.0); Hemoglobin 9.5 g/dl (14.0-18.0); Imm Gran Abs Auto 0.05 X10*3/uL (0.00-0.03); Imm Gran Pct Auto 0.7 % (0.0-0.4); Lymphocytes Percent Auto 13.5 % (20-40); Mean Corpuscular HGB Conc 31.9 g/dl (31.0-36.0); Mean Corpuscular Hemoglobin 28.7 pg (27.0-33.0); Monocytes Absolute Auto 0.7 X10*3/uL (0.1-1.2); Monocytes Percent Auto 10.2 % (2-11); Neutrophils Absolute Auto 5.3 x10*3/uL (2.0-8.3); Neutrophils Percent Auto 73.2 % (45-73); Platelet Count 375 X10*3/uL (160-400); Red Blood Count 3.31 X10*6/uL (4.60-5.80); Red Cell Distribution Width 15.4 % (11.0-16.0); White Blood Count 7.2 X10*3/uL (4.8-10.8)
[2023-01-08] MEDS: 0.9 % Sodium Chloride Flush 3 ML SYRINGE IVFLUSH ×2 (09:48→20:35)
[2023-01-08] MEDS: Famotidine/PF 20 MG/2 ML VIAL IVPUSH ×2 (09:48→20:36)
--- NOTE | 2023-01-08 10:08 | P.PNGS_ITS ---
Subjective Subjective Date of Service: 01/08/23 <Ronda Zavaleta PA-C - Last Filed: 01/08/23 10:18> 01/08/23 <Fareed Anton MD - Last Filed: 01/08/23 10:13> Interval history: Extubated 01/06 and transferred to [facility] 01/07. No events over the weekend. Having some incisional pain but overall feels ok. Asking for food. <Ronda Zavaleta PA-C - Last Filed: 01/08/23 10:18> Physical Exam Vital Signs: Vital Signs: Last Vital Signs Temp 97.5 F 01/08/23 07:30 Pulse 55 01/08/23 07:30 Resp 20 01/08/23 07:30 BP 158/75 H 01/08/23 07:30 Pulse Ox 96 01/08/23 07:30 O2 Del Method Nasal Cannula 01/08/23 07:30 O2 Flow Rate 3 01/08/23 07:30 FiO2 30 01/06/23 10:00 Oxygen Flow Rate 2 01/07/23 10:20 BMI result Body Mass Index 24.4 <Ronda Zavaleta PA-C - Last Filed: 01/08/23 10:18> Const: General: comfortable, no acute distress and alert <DOMINIK Rivera Last Filed: 01/08/23 10:18> Nutritional Appearance: malnourished <Ronda Zavlaeta PA-C - Last Filed: 01/08/23 10:18> Chest: Other: left chest incision clean appearing CT with scanty serosanguineous over the weekend <Ronda Zavaleta PA-C - Last Filed: 01/08/23 10:18> Resp: Effort & Inspection: normal respiratory effort <DOMINIK Rivera Last Filed: 01/08/23 10:18> Objective Data Active Medications Acetaminophen/Butalbital/Caffeine (Butalb/Acetamin/Caff 50/325/40 Tablet) 1 tab PO Q4H PRN PRN Reason: Headache Last Admin: 01/06/23 21:35 Dose: 1 tab Documented By: SANDHYA Albuterol/Ipratropium (Albuterol/Iprat 2.5/0.5mg 3 Ml Ampul.Neb) 3 ml INHALE Q4H PRN PRN Reason: Wheezing Last Admin: 01/03/23 01:38 Dose: 3 ml Documented By: GEENA Bictegravir/Emtricitabine/Tenofovir (Bictegrav/Emtricit/Tenofov Ala Tablet) 1 tab PO DAILY [facility] Last Admin: 01/07/23 07:36 Dose: 1 tab Documented By: NAIF Enoxaparin Sodium (Enoxaparin Sodium 40 Mg/0.4 Ml Syringe) 40 mg SUBCUT Q24H [facility]CLUDES [facility] Last Admin: 01/07/23 20:40 Dose: 40 mg Documented By: SHEILA Famotidine (Famotidine/Pf 20 Mg/2 Ml Vial) 20 mg IVPUSH BID COUNT INCLUDES [facility] Last Admin: 01/08/23 09:48 Dose: 20 mg Documented By: CIARA Fentanyl (Fentanyl Citrate/Pf 100 Mcg/2 Ml Vial) 50 mcg IVPUSH Q2H PRN; Protocol PRN Reason: Pain, Moderate (Pain Scale 4-6 Last Admin: 01/07/23 22:39 Dose: 50 mcg Documented By: SHEILA Comments: Piperacillin Sod/Tazobactam (Sod 4.5 gm/ Sodium Chloride) 100 mls @ 200 mls/hr IV Q6H [facility] Last Admin: 01/08/23 09:48 Dose: 200 mls/hr Documented By: CIARA Promethazine HCl 6.25 mg/ (Sodium Chloride) 50.25 mls @ 201 mls/hr IV ONCE PRN PRN Reason: Nausea and Vomiting Latanoprost (Latanoprost 0.005 % Ophth Carol 2.5 Ml Drops) 1 drop EYE-BOTH DAILY [facility]CLUDES [facility] Last Admin: 01/07/23 07:52 Dose: 1 drop Documented By: NAIF Melatonin (Melatonin 3 Mg Tablet) 6 mg PO BEDTIME PRN PRN Reason: Insomnia Last Admin: 01/07/23 20:33 Dose: 6 mg Documented By: SHEILA Naloxone HCl (Naloxone Hcl 0.4 Mg/Ml Vial) 0.2 mg IVPUSH Q2M PRN PRN Reason: Excessive sedation or RR < 8 Ondansetron HCl (Ondansetron Hcl 4 Mg/2 Ml Vial) 4 mg IVPUSH ONCE PRN PRN Reason: Nausea and Vomiting Sodium Chloride (0.9 % Sodium Chloride Flush 3 Ml Syringe) 3 ml IVFLUSH QSHIFT COUNT [facility]CLUDES [facility] Last Admin: 01/08/23 09:48 Dose: 3 ml Documented By: CIARA <DOMINIK Rivera Last Filed: 01/08/23 10:18> Labs CBC & Chem 7: 01/08/23 06:28 01/07/23 05:30 <DOMINIK Rivera Last Filed: 01/08/23 10:18> Labs: Laboratory Results - last 24 hr 01/08/23 01/08/23 06:28 06:33 MCV 90.0 MCH 28.7 MCHC 31.9 RDW 15.4 Plt Count 375 D MPV 11.0 Immature Gran % (Auto) 0.7 H Neut % (Auto) 73.2 H Lymph % (Auto) 13.5 L [place] % (Auto) 10.2 Eos % (Auto) 1.8 Baso % (Auto) 0.6 Lymph # (Auto) 1.0 L [place] # (Auto) 0.7 Eos # (Auto) 0.1 Baso # (Auto) 0.0 Abs Immat Gran (auto) 0.05 H Absolute Neuts (auto) 5.3 Absolute Nucleated RBC 0.000 Nucleated RBC % (auto) 0.0 VBG pH 7.58 H VBG pCO2 31 VBG pO2 180 VBG HCO3 29 H VBG O2 Saturation 99.0 VBG Base Excess 7.3 <Rodna Zavaleta PA-C - Last Filed: 01/08/23 10:18> Microbiology Microbiology Results: Microbiology 01/03/23 02:07 Gram Stain - Final Sputum - Suctioned Sputum Culture - Final Yulia albicans 01/05/23 Unknown Gram Stain - Final Lung - Left Routine Culture - Final No growth after 2 days <DOMINIK Rivera Last Filed: 01/08/23 10:18> Procedures Date of Service Date of Service: 01/08/23 <Fareed Anton MD - Last Filed: 01/08/23 10:13> Progress Note: A&P Assessment and plan (1) Empyema lung: Status: Acute <Ronda Zavaleta PA-C - Last Filed: 01/08/23 10:18> Assessment and Plan: 57 year old with empyema left hemithorax POD #3 s/p exploratory left thoracotomy, empyemectomy, decortication left lung, pneumonolysis, drainage of multiloculated pleural effusion, multilevel intercostal nerve block. Extubated 01/06 and transferred to [facility] 01/07. On 3L NC with O2 in mid-high 90s. Chest tubes with no air leak on exam today. Placed to water seal. Will obtain CXR tomorrow morning and if lung remains expanded, will remove chest tubes. Advance diet as per primary team, bowel regimen. <Ronda Zavaleta PA-C - Last Filed: 01/08/23 10:18> 57 year old with left exploratory left thoracotomy, empyemectomy, decortication left lung, pneumonolysis, drainage of multiloculated pleural effusion, multilevel intercostal nerve block Chest tube to water seal, chest x-ray in the morning, encourage incentive spirometry, percutaneous, out of bed with assistance, physical therapy, consider ECF placement. <Fareed Anton MD - Last Filed: 01/08/23 10:13> Time Spent With Patient Time: Total time managing care of this patient today ____ minutes. <Ronda Zavaleta PA-C - Last Filed: 01/08/23 10:18> Quality Stroke Does the patient have a stroke diagnosis?: No <Ronda Zavaleta PA-C - Last Filed: 01/08/23 10:18> VTE Prior VTE?: No <Ronda Zavaleta PA-C - Last Filed: 01/08/23 10:18> VTE Risk Level:: Medical - moderate - high <DOMINIK Rivera Last Filed: 01/08/23 10:18> VTE Device Contraindication: Treatment Not Indicated <Ronda Zavaleta PA-C - Last Filed: 01/08/23 10:18> VTE Drug Contraindication: N/A - Med Ordered <Ronda Zavaleta PA-C - Last Filed: 01/08/23 10:18>
--- NOTE | 2023-01-08 10:16 | MHC.CM.PN ---
PER MD ROUNDS, PT NOT MEDICALLY CLEARED DCP TBD PENDING PTS RECOVERY AND POSSIBLE PT EVAL REFERRALS FOR [facility] AND STR PLACED CM FOLLOWING
--- NOTE | 2023-01-08 10:46 | HO.PM.IMPN ---
Subjective Subjective Date of Service: 03/04/23 Interval History: 57-year-old male with a PMH significant for?HIV, anxiety, depression, hx of hepatitis C, hx of lung abscess in 2020, and mild intermittent asthma admitted on 12/30 with PNA, and 01/03 went into acute respiratory failure and required intubation in ICU where he was noted to have left sided larege loculated efusio that was not present on admission.. on 01/05 he had chest tubes inserted by Dr. Anton, transfered out of ICU 01/07 Physical Exam Vital Signs: Vital Signs: Last Vital Signs Temp 97.5 F 01/08/23 07:30 Pulse 55 01/08/23 07:30 Resp 20 01/08/23 07:30 BP 158/75 H 01/08/23 07:30 Pulse Ox 96 01/08/23 07:30 O2 Del Method Nasal Cannula 01/08/23 07:30 O2 Flow Rate 3 01/08/23 07:30 FiO2 30 01/06/23 10:00 Oxygen Flow Rate 2 01/07/23 10:20 BMI result Body Mass Index 24.4 Objective Data Active Medications Acetaminophen/Butalbital/Caffeine (Butalb/Acetamin/Caff 50/325/40 Tablet) 1 tab PO Q4H PRN PRN Reason: Headache Last Admin: 01/06/23 21:35 Dose: 1 tab Documented By: SANDHYA Albuterol/Ipratropium (Albuterol/Iprat 2.5/0.5mg 3 Ml Ampul.Neb) 3 ml INHALE Q4H PRN PRN Reason: Wheezing Last Admin: 01/03/23 01:38 Dose: 3 ml Documented By: GEENA Bictegravir/Emtricitabine/Tenofovir (Bictegrav/Emtricit/Tenofov Ala Tablet) 1 tab PO DAILY [facility] Last Admin: 01/07/23 07:36 Dose: 1 tab Documented By: NAIF Enoxaparin Sodium (Enoxaparin Sodium 40 Mg/0.4 Ml Syringe) 40 mg SUBCUT Q24H [facility] Last Admin: 01/07/23 20:40 Dose: 40 mg Documented By: SHEILA Famotidine (Famotidine/Pf 20 Mg/2 Ml Vial) 20 mg IVPUSH BID [facility] Last Admin: 01/08/23 09:48 Dose: 20 mg Documented By: CIARA Fentanyl (Fentanyl Citrate/Pf 100 Mcg/2 Ml Vial) 50 mcg IVPUSH Q2H PRN; Protocol PRN Reason: Pain, Moderate (Pain Scale 4-6 Last Admin: 01/07/23 22:39 Dose: 50 mcg Documented By: SHEILA Comments: Piperacillin Sod/Tazobactam (Sod 4.5 gm/ Sodium Chloride) 100 mls @ 200 mls/hr IV Q6H [facility] Last Admin: 01/08/23 09:48 Dose: 200 mls/hr Documented By: CIARA Promethazine HCl 6.25 mg/ (Sodium Chloride) 50.25 mls @ 201 mls/hr IV ONCE PRN PRN Reason: Nausea and Vomiting Latanoprost (Latanoprost 0.005 % Ophth Carol 2.5 Ml Drops) 1 drop EYE-BOTH DAILY [facility] Last Admin: 01/07/23 07:52 Dose: 1 drop Documented By: NAIF Melatonin (Melatonin 3 Mg Tablet) 6 mg PO BEDTIME PRN PRN Reason: Insomnia Last Admin: 01/07/23 20:33 Dose: 6 mg Documented By: SHEILA Naloxone HCl (Naloxone Hcl 0.4 Mg/Ml Vial) 0.2 mg IVPUSH Q2M PRN PRN Reason: Excessive sedation or RR < 8 Ondansetron HCl (Ondansetron Hcl 4 Mg/2 Ml Vial) 4 mg IVPUSH ONCE PRN PRN Reason: Nausea and Vomiting Sodium Chloride (0.9 % Sodium Chloride Flush 3 Ml Syringe) 3 ml IVFLUSH QSHIFT [facility] Last Admin: 01/08/23 09:48 Dose: 3 ml Documented By: CIARA Labs 01/08/23 06:28 01/07/23 05:30 Labs: Laboratory Results - last 24 hr 01/08/23 01/08/23 06:28 06:33 MCV 90.0 MCH 28.7 MCHC 31.9 RDW 15.4 Plt Count 375 D MPV 11.0 Immature Gran % (Auto) 0.7 H Neut % (Auto) 73.2 H Lymph % (Auto) 13.5 L [place] % (Auto) 10.2 Eos % (Auto) 1.8 Baso % (Auto) 0.6 Lymph # (Auto) 1.0 L [place] # (Auto) 0.7 Eos # (Auto) 0.1 Baso # (Auto) 0.0 Abs Immat Gran (auto) 0.05 H Absolute Neuts (auto) 5.3 Absolute Nucleated RBC 0.000 Nucleated RBC % (auto) 0.0 VBG pH 7.58 H VBG pCO2 31 VBG pO2 180 VBG HCO3 29 H VBG O2 Saturation 99.0 VBG Base Excess 7.3 Microbiology Microbiology Results: Microbiology 01/03/23 02:07 Gram Stain - Final Sputum - Suctioned Sputum Culture - Final Sandy albicans 01/05/23 Unknown Gram Stain - Final Lung - Left Routine Culture - Final No growth after 2 days Assessment and Plan (1) Empyema lung: Status: Acute Plan 57-year-old male with a PMH significant for?HIV, anxiety, depression, hx of hepatitis C, hx of lung abscess in 2020, and mild intermittent asthma admitted on 12/30 with PNA, and 01/03 went into acute respiratory failure and required intubation in ICU where he was noted to have left sided larege loculated efusio that was not present on admission.. on 01/05 he had chest tubes inserted by Dr. Anton, transfered out of ICU 01/07 #Sepsis #pnumonia #empayema s/p chest tubes -Surgery managing chest tubes -Continue Zosyn .cultures are ngative thus, sputum sandy porably not real #Moderate protein calorie malnutrition Patient cachectic, globally weak, says he has had decreased p.o. intake of both fluids and solids, recent weight loss Presently on tube feed by NGT to have swallow eval and then advance diet #HTN--BP high, restart Norvasc 5, hold Proprnolol d/t low HR #Mild intermittent asthma--no exacerbation #HIV, Latest CD4 count on 11/29/2022 was 377 Continue home Biktarvy #Peripheral neuropathy--Neurontin on hold #Mood disorder--was on clonazepam, mirtazapine, and risperidone all stopped in ICU, continue holding until more alert Full Code DVT Prophylaxis: Lovenox Need for inpatient: treatment of sepsis, empayema and magement of new chest tubes Time Spent With Patient Time: Total time managing care of this patient today ____ minutes. Quality Stroke Does the patient have a stroke diagnosis?: No VTE Prior VTE?: No VTE Risk Level:: Medical - moderate - high VTE Device Contraindication: Treatment Not Indicated VTE Drug Contraindication: N/A - Med Ordered
--- NOTE | 2023-01-08 12:30 | MHC.CLN ---
F/U PT EXTUBATED 01/07 AND TRANSFERRED TO MEDICAL FLOOR PT ALSO REMAINS NPO WITH NGT IN PLACE FOR TF PT CURRENTLY RECEIVING PROMOTE TF AT MAX GOAL RATE 60ML/HR PROVIDES 1440KCALS (20KCLAS/KG), 90G PROTEIN (1.3G/KG), 1208ML FREE WATER FROM FORMULA RECOMMEND CHANGING FORMULA TO OSMOLITE 1.5 AT MAX GOAL RATE 55ML/HR WITH 300ML FREE WATER Q 6 HRS TO PROVIDE 1980KCALS (28KCALS/KG), 83G PROTEIN (1.2G/KG), 2205ML TOTAL WATER FROM FORMULA AND FLUSHES (31.5ML/KG) MONITOR TOLERANCE, RESIDUALS, AND LYTES
[2023-01-08] MEDS: Bictegrav/Emtricit/Tenofov Ala TABLET 1 TAB PO (12:37)
[2023-01-08] MEDS: Latanoprost 0.005 % Ophth Sol 2.5 ML DROPS 1 DROP EYE-BOTH (12:42)
[2023-01-08 12:49] LABS: Albumin Level 3.6 g/dL (3.5-5.0); Anion Gap 14 (12-20); Blood Urea Nitrogen 10 mg/dL (9-16); Calcium 8.2 mg/dL (8.4-10.2); Carbon Dioxide 27 mmol/L (22-29); Chloride 107 mmol/L (96-108); Creatinine Clr Calc Pharmacy 125.4; Estimated Glomerular Filt Rate > 60; Glucose Random 110 mg/dL (60-115); Magnesium 2.1 mg/dL (1.6-2.6); Phosphorus 2.4 mg/dL (2.7-4.5); Potassium 3.7 mmol/L (3.3-5.1); Sodium 144 mmol/L (135-145)
--- NOTE | 2023-01-08 15:05 | MHC.SL.SWA ---
Speech Pathologist Impression: Oropharyngeal dysphagia, risk of aspiration Risk of Aspiration Due to: Poor PO Intake Dysphasia Diet Status: Pt w/ NGT. LINE MAINTAINER recommending MBSS. Notified care team (MD, RN, RD). Liquid Consistency and Strategies for Safe Swallow: Liquid Intake Recommendation: NPO Solid Food Consistency: Dietary Recommendations: NPO Oral Medication Intake: NPO Please contact the pharmacy regarding appropriate crushable or liquid drug formulations that are available whenever modified delivery is recommended. Supervision While Eating and Drinking for Safe Swallow: PO with LINE MAINTAINER Swallowing Recommended Treatments: Compens. Strategy Educat. Recommendation for Speech: Inpatient Speech Therapy, MBSS Line Cleaner Clinican/Clinical Fellow: No Supervisory Statement: I have reviewed and agree with the student/clinical fellow's documentation: N/A Speech Language Pathologist: Laura Hill M.A., [facility]-LINE MAINTAINER
--- NOTE | 2023-01-08 18:48 | PC.NURSE ---
Pt. removed Mona tube X2 and pulled out IJ triple lumen. aware, continuing to monitor.
[2023-01-08] MEDS: fentaNYL citrate/PF 100 MCG/2 ML VIAL 50 MCG IVPUSH ×2 (20:41→22:46)
[2023-01-08] MEDS: Enoxaparin Sodium 40 MG/0.4 ML SYRINGE SUBCUT (20:44)
[2023-01-09] VITALS (9 sets, daily range): BP systolic 143–176; BP diastolic 76–92; PULSE 50–60; RESP 18–20; TEMP 36.3–37.3; O2SAT 94–98
[2023-01-09] MEDS: Piperacillin Sodium/Tazobactam 4.5 GM in 0.9 % Sodium Chloride 100 ML IV ×4 (02:03→20:25)
[2023-01-09] MEDS: Latanoprost 0.005 % Ophth Sol 2.5 ML DROPS 1 DROP EYE-BOTH (07:52)
[2023-01-09] MEDS: Famotidine/PF 20 MG/2 ML VIAL IVPUSH ×2 (07:52→20:25)
[2023-01-09] MEDS: Bictegrav/Emtricit/Tenofov Ala TABLET 1 TAB PO (07:52)
[2023-01-09] MEDS: 0.9 % Sodium Chloride Flush 3 ML SYRINGE IVFLUSH ×3 (07:52→20:25)
[2023-01-09] MEDS: fentaNYL citrate/PF 100 MCG/2 ML VIAL 50 MCG IVPUSH ×5 (08:08→23:59)
--- NOTE | 2023-01-09 08:23 | PM.PNTS ---
Subjective Subjective Date of Service: 01/09/23 Interval history: Uneventful evening. Chest tube output minimum. No air leak. Physical Exam Vital Signs: Vital Signs: Last Vital Signs Temp 98.3 F 01/09/23 07:40 Pulse 56 01/09/23 07:40 Resp 18 01/09/23 07:40 BP 155/77 H 01/09/23 07:40 Pulse Ox 96 01/09/23 07:40 O2 Del Method Nasal Cannula 01/09/23 07:40 O2 Flow Rate 2 01/09/23 07:40 FiO2 30 01/06/23 10:00 Oxygen Flow Rate 3 01/08/23 12:00 BMI result Body Mass Index 24.4 Chest: Other: Chest incision; clean dry and intact. Procedures Date of Service Date of Service: 01/09/23 Progress Note: A&P Assessment and plan (1) Empyema lung: Status: Acute Plan A.m. chest x-ray. If no significant pneumothorax is present and minimal pleural effusion, for chest tube removal. Time Spent With Patient Time: Total time managing care of this patient today ____ minutes. Quality Stroke Does the patient have a stroke diagnosis?: No VTE Prior VTE?: No VTE Risk Level:: Medical - moderate - high VTE Device Contraindication: Treatment Not Indicated VTE Drug Contraindication: N/A - Med Ordered
--- NOTE | 2023-01-09 13:59 | PC.NURSE ---
Patient off floor for barium swallow at this time via bed and transport aid.
--- NOTE | 2023-01-09 14:37 | MHC.SPEECHCO ---
MBS complete. No aspiration observed. Recommend Chopped/Advanced Solids and Thin Liquids d/t difficulty chewing. Full report to follow.
--- NOTE | 2023-01-09 16:48 | MHC.SL.IMP ---
Date of Plan of Treatment: 01/09/23 Onset of Symptoms/Illness: 01/09/23 Date Treatment Started: 01/09/23 Admitting Diagnosis: Dysphagia Primary Speech & Language Diagnosis: R13.12 Oropharyngeal Phase Dysphagia Secondary Speech & Language Diagnosis: R13.10 Dysphagia Reason for Today's Visit: [id number] Modified Barium Swallow Study Comments: Pre-evaluation Dietary Consistencies: NPO Pre-evaluation Liquid Consistency: NPO Pre-evaluation Medication Administration: NPO Medical History: Pneumonia Food and Liquid Trials: Oral Impairment: Lip Closure: 2=Escape @ interlabial space/lat juncture; not beyond vermilion border Oral Impairment: Tongue Control During Bolus Hold: 0=Cohesive bolus between tongue to palatal seal Oral Impairment: Bolus Preparation/Mastication: 2=Disorganized chewing/mashing with solid pieces of bolus Oral Impairment: Bolus Transport/Lingual Motion: 1= Delayed initiation of tongue motion Oral Impairment: Oral Residue: 3=Majority of bolus remaining Oral Impairment:Initiation of Pharyngeal Swallow: 2=Bolus head at posterior laryngeal surface of epiglottis Pharyngeal Impairment: Soft Palate Elevation: 1=Trace column of contrast or air between SP and PW Pharyngeal Impairment: Laryngeal Elevation: 1=Partial thyroid cartilage/arytenoids to epiglottic petiole movement Pharyngeal Impairment: Anterior Hyoid Excursion: 1=Partial anterior movement Pharyngeal Impairment: Epiglottic Movement: 0=Complete inversion Pharyngeal Impairment: Laryngeal Vestibular Closure:: 0=Complete: no air/contrast in laryngeal vestibule Pharyngeal Impairment: Pharyngeal Stripping Wave: 0=Present: complete Pharyngeal Impairment: Pharyngeal Contraction: Did not test Pharyngeal Impairment: Pharyngoesophageal Segment Openin=Partial distention/partial duration: partial obstruction of flow Pharyngeal Impairment: Tongue Base (TB) Retraction: 1=Trace column of contrast/air between TB and posterior PW Pharyngeal Impairment: Pharyngeal Residue: 2=Collection of residue within or on pharyngeal structures Pharyngeal Impairment: Esophageal Clearance Upright Position: Did not test Impressions and Recommendations Clinical Observations: MBSImP Results: Lip closure for intraoral bolus containment resulted in bolus escape from the interlabial space or lateral juncture, but no extension beyond the vermilion border. Tongue control during bolus hold maintained a cohesive bolus held between tongue to palate seal. Bolus preparation and mastication demonstrated disorganized chewing/mashing with solid pieces of the bolus unchewed. Bolus transport/lingual motion demonstrated delayed initiation of tongue motion. Oral residue was the majority of the bolus. Initiation of the pharyngeal swallow occurred as the bolus head was at the posterior laryngeal surface of the epiglottis. Soft palate elevation resulted in no bolus between the soft palate and the pharyngeal wall. Laryngeal elevation was decreased, with partial superior movement of the thyroid cartilage/partial approximation of the arytenoids to the epiglottic petiole. Anterior hyoid excursion demonstrated partial anterior movement. Epiglottic movement resulted in complete inversion. Laryngeal vestibular closure was complete, as indicated by no air or contrast within the laryngeal vestibule at the height of the swallow. Pharyngeal stripping wave was present and complete. Pharyngeal contraction could not be determined due to logistical reasons not related to physiologic impairment. Pharyngoesophageal segment opening demonstrated partial distension/partial duration, with partial obstruction of bolus flow. Tongue base retraction allowed a trace column of contrast or air between the retracted tongue base and the posterior pharyngeal wall. Pharyngeal residue was a collection of residue within or on pharyngeal structures. Esophageal clearance in the upright position could not be assessed due to logistical reasons not related to physiologic impairment. Pt demonstrated good ability to protect his airway. His largest area of deficit today was with the oral phase. With Regular Solids, he had a majority of the bolus remaining in his oral cavity after the first swallow. He needed additional time and subsequent swallows to clear his oral cavity. He was administered a follow-up sip of Thin Liquids with oral and pharyngeal residue present resulting in adequate clearance of residue, and no additional risk of aspiration. Liquid Intake Recommendation: Thin Liquid Intake Strategies: Small Sips Dietary Recommendations: Chopped/Advanced (NDD3) Medication Administration: Whole with Liquid Please contact the pharmacy regarding appropriate crushable or liquid drug formulations that are available whenever modified delivery is recommended. Compensatory Strategies Recommended: Sitting Upright (90 deg) Liquids from Cup Liquids from Spoon Small Bites and Sips Alternate Liquids/Solids Oral Check Supervision during eating and or drinking: PO with LANDSCAPE ENGINEER Recommended Treatments: Compens. Strategy Educat. Recommendation for Speech Therapy: Inpatient Speech Therapy Text Comment: Cues to take small bites, alternate liquids and solids, avoid excessively difficult to chew solids. Frequency/Duration: PRN Date Range for Service Requested: Timeline to reassess: PRN Act Tutor Clinician/Clinical Fellow: No Supervisory Statement: N/A Speech Language Pathologist: Robby Blanton M.A., [facility]-LANDSCAPE ENGINEER
--- NOTE | 2023-01-09 17:55 | HO.PM.IMPN ---
Subjective Subjective Date of Service: 01/09/23 Interval History: ?acute respiratory failure and required intubation? Review of Systems ? left sided larege loculated efusio that was not present on admission.. on 01/05 he had chest tubes inserted by Dr. Anton, transfered out of ICU 01/07 denies any fever or chills,asking for eating Physical Exam Vital Signs: Vital Signs: Last Vital Signs Temp 98.7 F 01/09/23 15:27 Pulse 55 01/09/23 15:27 Resp 18 01/09/23 15:27 BP 168/81 H 01/09/23 15:27 Pulse Ox 94 01/09/23 15:27 O2 Del Method Nasal Cannula 01/09/23 15:27 O2 Flow Rate 3 01/09/23 15:27 FiO2 30 01/06/23 10:00 Oxygen Flow Rate 3 01/09/23 12:00 BMI result Body Mass Index 24.4 Appearance: Alert.? Oriented X3.?sob improving cvs: rrr, [id number] , no murmur res: air entry fair ,has left sided chest tube -has some drainge (mostly serosinguous) abd: no rebound or guarding ,nt, bs present. ext pulses present , no cyanosis ,Gait well balanced well coordinated. neuro: axo3 , nonfocal. Objective Data Active Medications Acetaminophen/Butalbital/Caffeine (Butalb/Acetamin/Caff 50/325/40 Tablet) 1 tab PO Q4H PRN PRN Reason: Headache Last Admin: 01/06/23 21:35 Dose: 1 tab Documented By: SANDHYA Albuterol/Ipratropium (Albuterol/Iprat 2.5/0.5mg 3 Ml Ampul.Neb) 3 ml INHALE Q4H PRN PRN Reason: Wheezing Last Admin: 01/03/23 01:38 Dose: 3 ml Documented By: GEENA Bictegravir/Emtricitabine/Tenofovir (Bictegrav/Emtricit/Tenofov Ala Tablet) 1 tab PO DAILY [facility] Last Admin: 01/09/23 07:52 Dose: 1 tab Documented By: NAIF Enoxaparin Sodium (Enoxaparin Sodium 40 Mg/0.4 Ml Syringe) 40 mg SUBCUT Q24H [facility] Last Admin: 01/08/23 20:44 Dose: 40 mg Documented By: SHEILA Famotidine (Famotidine/Pf 20 Mg/2 Ml Vial) 20 mg IVPUSH BID [facility] Last Admin: 01/09/23 07:52 Dose: 20 mg Documented By: NAIF Fentanyl (Fentanyl Citrate/Pf 100 Mcg/2 Ml Vial) 50 mcg IVPUSH Q2H PRN; Protocol PRN Reason: Pain, Moderate(Pain Scale 4-6) Last Admin: 01/09/23 17:24 Dose: 50 mcg Documented By: NAIF Piperacillin Sod/Tazobactam (Sod 4.5 gm/ Sodium Chloride) 100 mls @ 200 mls/hr IV Q6H [facility] Last Infusion: 01/09/23 17:19 Dose: 0 mls/hr Documented By: NAIF Promethazine HCl 6.25 mg/ (Sodium Chloride) 50.25 mls @ 201 mls/hr IV ONCE PRN PRN Reason: Nausea and Vomiting Latanoprost (Latanoprost 0.005 % Ophth Carol 2.5 Ml Drops) 1 drop EYE-BOTH DAILY [facility] Last Admin: 01/09/23 07:52 Dose: 1 drop Documented By: NAIF Magnesium Hydroxide (Milk Of Magnesia 30 Ml Oral.Susp) 30 ml NG-TUBE DAILY PRN PRN Reason: Constipation Melatonin (Melatonin 3 Mg Tablet) 6 mg PO BEDTIME PRN PRN Reason: Insomnia Last Admin: 01/07/23 20:33 Dose: 6 mg Documented By: SHEILA Naloxone HCl (Naloxone Hcl 0.4 Mg/Ml Vial) 0.2 mg IVPUSH Q2M PRN PRN Reason: Excessive sedation or RR < 8 Ondansetron HCl (Ondansetron Hcl 4 Mg/2 Ml Vial) 4 mg IVPUSH ONCE PRN PRN Reason: Nausea and Vomiting Polyethylene Glycol (Polyethylene Glycol 3350 17 Gm Powd.Pack) 17 gm PO DAILY PRN PRN Reason: Constipation Sodium Chloride (0.9 % Sodium Chloride Flush 3 Ml Syringe) 3 ml IVFLUSH QSHIFT [facility] Last Admin: 01/09/23 15:22 Dose: 3 ml Documented By: NAIF Labs 01/08/23 06:28 05/01/23 06:28 Microbiology Microbiology Results: Microbiology 04/26/23 19:36 Blood Culture - Final Blood - Venous No growth after 5 days. 01/03/23 19:36 Blood Culture - Final Blood - Venous No growth after 5 days. Assessment and Plan (1) Empyema lung: Status: Acute Plan 57-year-old male with a PMH significant for?HIV, anxiety, depression, hx of hepatitis C, hx of lung abscess in 2020, and mild intermittent asthma admitted on 12/30 with PNA, and 01/03 went into acute respiratory failure and required intubation in ICU where he was noted to have? left sided larege loculated efusio that was not present on admission.. on 01/05 he had chest tubes inserted by Dr. Anton, transfered out of ICU 01/07 Sepsis/pnumonia/empayema s/p chest tubes -Surgery managing chest tubes -Continue Zosyn .cultures are ngative thus, sputum sandy porably not real Moderate protein calorie malnutrition Patient cachectic, globally weak, says he has had decreased p.o. intake of both fluids and solids, recent weight loss Presently on tube feed by NGT to have swallow eval and then advance diet HTN--BP high, restart Norvasc 5, hold Proprnolol d/t low HR Mild intermittent asthma--no exacerbation HIV, Latest CD4 count on 11/29/2022 was 377 Continue home Biktarvy Peripheral neuropathy--Neurontin on hold Mood disorder--was on clonazepam, mirtazapine, and risperidone all stopped in ICU, continue holding until more alert mbss done-dist advanced. DVT Prophylaxis: Lovenox Need for inpatient: treatment of sepsis, empayema and magement of new chest tubes Time Spent With Patient Time: Total time managing care of this patient today ____ minutes. Quality Stroke Does the patient have a stroke diagnosis?: No VTE Prior VTE?: No VTE Risk Level:: Medical - moderate - high VTE Device Contraindication: Treatment Not Indicated VTE Drug Contraindication: N/A - Med Ordered
[2023-01-09] MEDS: Enoxaparin Sodium 40 MG/0.4 ML SYRINGE SUBCUT (21:21)
[2023-01-10] VITALS (10 sets, daily range): BP systolic 120–157; BP diastolic 69–89; PULSE 50–89; RESP 18–20; TEMP 36.1–37; O2SAT 94–97
[2023-01-10] MEDS: fentaNYL citrate/PF 100 MCG/2 ML VIAL 50 MCG IVPUSH ×2 (02:19→05:45)
[2023-01-10] MEDS: Piperacillin Sodium/Tazobactam 4.5 GM in 0.9 % Sodium Chloride 100 ML IV ×4 (02:20→19:45)
[2023-01-10] MEDS: Famotidine/PF 20 MG/2 ML VIAL IVPUSH ×2 (09:49→19:44)
[2023-01-10] MEDS: Bictegrav/Emtricit/Tenofov Ala TABLET 1 TAB PO (09:49)
--- NOTE | 2023-01-10 10:04 | PM.PNTS ---
Subjective Subjective Date of Service: 01/10/23 <Ronda Zavaleta PA-C - Last Filed: 01/10/23 10:07> 01/10/23 <Fareed Anton MD - Last Filed: 01/10/23 11:02> Interval history: No complaints. Tolerating diet but not eating much. Has not moved his bowels. <Ronda Zavaleta PA-C - Last Filed: 01/10/23 10:07> Physical Exam Vital Signs: Vital Signs: Last Vital Signs Temp 97.1 F 01/10/23 07:15 Pulse 50 01/10/23 07:15 Resp 18 01/10/23 07:15 BP 137/80 01/10/23 07:15 Pulse Ox 96 01/10/23 07:15 O2 Del Method Nasal Cannula 01/10/23 07:15 O2 Flow Rate 2 01/10/23 07:15 FiO2 30 01/06/23 10:00 Oxygen Flow Rate 3 01/09/23 12:00 BMI result Body Mass Index 24.4 <Ronda Zavaleta PA-C - Last Filed: 01/10/23 10:07> Const: General: comfortable, no acute distress and alert <Ronda Zavaleta PA-C - Last Filed: 01/10/23 10:07> Nutritional Appearance: cachectic <DOMINIK Rivera Last Filed: 01/10/23 10:07> Resp: Other: chest tubes in place; serosanguineous drainage <Ronda Zavaleta PA-C - Last Filed: 01/10/23 10:07> Effort & Inspection: normal respiratory effort <Ronda Zavaleta PA-C - Last Filed: 01/10/23 10:07> Skin: Other: warm and dry <DOMINIK Rivera Last Filed: 01/10/23 10:07> Neuro: General: moves all extremities <DOMINIK Rivera Last Filed: 01/10/23 10:07> Procedures Date of Service Date of Service: 01/10/23 <DOMINIK Rivera Last Filed: 01/10/23 10:07> Progress Note: A&P Assessment and plan (1) Empyema lung: Status: Acute <Ronda Zavaleta PA-C - Last Filed: 01/10/23 10:07> Assessment and Plan: Chest tubes removed uneventfully this morning. Occlusive dressing placed. Patient tolerated this well. Repeat CXR later this morning. Cont pain control, IS use, OOB. Encouraged PO intake, add supplements. Bowel regimen. <DOMINIK Rivera Last Filed: 01/10/23 10:07> Time Spent With Patient Time: Total time managing care of this patient today ____ minutes. <Ronda Zavaleta PA-C - Last Filed: 01/10/23 10:07> Quality Stroke Does the patient have a stroke diagnosis?: No <Ronda Zavaleta PA-C - Last Filed: 01/10/23 10:07> VTE Prior VTE?: No <Ronda Zavaleta PA-C - Last Filed: 01/10/23 10:07> VTE Risk Level:: Medical - moderate - high <Ronda Zavaleta PA-C - Last Filed: 01/10/23 10:07> VTE Device Contraindication: Treatment Not Indicated <DOMINIK Rivera Last Filed: 01/10/23 10:07> VTE Drug Contraindication: N/A - Med Ordered <Ronda Zavaleta PA-C - Last Filed: 01/10/23 10:07>
[2023-01-10] MEDS: 0.9 % Sodium Chloride Flush 3 ML SYRINGE IVFLUSH (10:06)
[2023-01-10] MEDS: Latanoprost 0.005 % Ophth Sol 2.5 ML DROPS 1 DROP EYE-BOTH (10:07)
--- NOTE | 2023-01-10 10:32 | MHC.CM.PN ---
Per ROUNDS discussion, Patient will have chest tube removed today and needs a Nutrition Consult. Patient is not yet medically cleared for dc and PT is recommending STR. CM will follow.
[2023-01-10] MEDS: HYDROmorphone HCl 0.5 MG/0.5 ML SYRINGE IVPUSH ×3 (10:42→19:45)
[2023-01-10] MEDS: Docusate Sodium 100 MG CAPSULE PO ×2 (10:47→19:44)
[2023-01-10] MEDS: oxyCODONE HCl Immed Release 5 MG TABLET PO ×3 (11:16→23:12)
--- NOTE | 2023-01-10 11:57 | MHC.CLN ---
F/U AND CONSULT PER CM: PT PREVIOUSLY DX WITH MODERATE MALNUTRITION SEE FULL CLINICAL NUTRITION ASSESSMENTS DATED 01/01/23 AND 01/08/23 PT PULLED OUT KEOFEED TUBE 01/08/23; PT DID NOT RECEIVE TF STAFFING RECRUITER RECOMMENDED CHOPPED DIET ON 01/09/23 DIET RX; CARDIAC CHOPPED-RECOMMEND LIBERALIZING DIET TO REGULAR TO PROMOTE PO INTAKE PT RECEIVING ENSURE TID PROVIDES 1050KCALS, 60G PROTEIN WITH 100% ACCEPTANCE PLAN CHANGE DIET TO REGULAR, CHOPPED CONSISTENCY MONITOR PO INTAKE CLOSELY WEEKLY WEIGHTS R/T MALNUTRITION DX
--- NOTE | 2023-01-10 13:43 | MHC.SL.SWA ---
Speech Pathologist Impression: Risk of Aspiration Due to: Poor PO Intake Dysphasia Diet Status: No change Liquid Consistency and Strategies for Safe Swallow: Liquid Intake Recommendation: Thin Liquid Intake Strategies: Small Sips Solid Food Consistency: Dietary Recommendations: Chopped/Advanced (NDD3) Oral Medication Intake: Whole with Liquid Please contact the pharmacy regarding appropriate crushable or liquid drug formulations that are available whenever modified delivery is recommended. Compensatory Strategies and Precautions to be Taken for Safe Swallow: Sitting Upright (90 deg) Liquids from Cup Liquids from Spoon Small Bites and Sips Alternate Liquids/Solids Oral Check Supervision While Eating and Drinking for Safe Swallow: Intermittent Supervision Foods to Avoid: Avoid difficult to chew solids. Swallowing Recommended Treatments: Compens. Strategy Educat. Recommendation for Speech: Inpatient Speech Therapy Pt seen for MBSS on 01/09/23, recommended chopped/advanced solids (NDD3) and thin liquids. Recommend 1-2 f/u visits w/ REELER OPERATOR to monitor toleration of diet and to provide pt/family education. See MBSS summary below. Full MBSS report in Expanse. Liquid Intake Recommendation: Thin Liquid Intake Strategies: Small Sips Dietary Recommendations: Chopped/Advanced (NDD3) Medication Administration: Whole with Liquid Please contact the pharmacy regarding appropriate crushable or liquid drug formulations that are available whenever modified delivery is recommended. Compensatory Strategies Recommended: Sitting Upright (90 deg) Liquids from Cup Liquids from Spoon Small Bites and Sips Alternate Liquids/Solids Oral Check Cues to take small bites, alternate liquids and solids, avoid excessively difficult to chew solids. School Principal Clinican/Clinical Fellow: No Supervisory Statement: I have reviewed and agree with the student/clinical fellow's documentation: N/A Speech Language Pathologist: Mona Hale M.A., REELER OPERATOR
--- NOTE | 2023-01-10 14:40 | PC.NURSE ---
Chest tubes removed today by surgeon, patient tolerated well, dressing dry and intact, vital signs stable.
--- NOTE | 2023-01-10 14:48 | P.PNIM_ITS ---
Subjective Subjective Date of Service: 01/10/23 Interval History: ?acute respiratory failure and required intubation? Review of Systems ? left sided larege loculated efusio that was not present on admission.. on 01/05 he had chest tubes inserted by Dr. Anton, transfered out of ICU 01/07 s/p chest tube removal. denies any fever or chills,asking for eating Physical Exam Vital Signs: Vital Signs: Last Vital Signs Temp 97.1 F 01/10/23 11:13 Pulse 57 01/10/23 11:13 Resp 20 01/10/23 11:13 BP 150/89 H 01/10/23 11:13 Pulse Ox 95 01/10/23 12:00 O2 Del Method Nasal Cannula 01/10/23 12:00 O2 Flow Rate 2 01/10/23 11:13 FiO2 30 01/06/23 10:00 Oxygen Flow Rate 3 01/10/23 12:00 BMI result Body Mass Index 24.4 Appearance: Alert.? Oriented X3.?sob improving cvs: rrr, [id number] , no murmur res: air entry fair ,has left sided chest tube -has some drainge (mostly serosinguous)-surgery team at bedside to remove chest tube. abd: no rebound or guarding ,nt, bs present. ext pulses present , no cyanosis . neuro: axo3 , nonfocal. Objective Data Active Medications Acetaminophen/Butalbital/Caffeine (Butalb/Acetamin/Caff 50/325/40 Tablet) 1 tab PO Q4H PRN PRN Reason: Headache Last Admin: 01/06/23 21:35 Dose: 1 tab Documented By: SANDHYA Bictegravir/Emtricitabine/Tenofovir (Bictegrav/Emtricit/Tenofov Ala Tablet) 1 tab PO DAILY [facility] Last Admin: 01/10/23 09:49 Dose: 1 tab Documented By: MERVAT Docusate Sodium (Docusate Sodium 100 Mg Capsule) 100 mg PO BID [facility] Last Admin: 01/10/23 10:47 Dose: 100 mg Documented By: MERVAT Enoxaparin Sodium (Enoxaparin Sodium 40 Mg/0.4 Ml Syringe) 40 mg SUBCUT Q24H [facility] Last Admin: 01/09/23 21:21 Dose: 40 mg Documented By: NAIF Famotidine (Famotidine/Pf 20 Mg/2 Ml Vial) 20 mg IVPUSH BID [facility] Last Admin: 01/10/23 09:49 Dose: 20 mg Documented By: MERVAT Hydromorphone HCl (Hydromorphone Hcl 0.5 Mg/0.5 Ml Syringe) 0.5 mg IVPUSH Q4H PRN; Protocol PRN Reason: Pain, Severe (Pain Scale 7-10) Last Admin: 01/10/23 10:42 Dose: 0.5 mg Documented By: MERVAT Piperacillin Sod/Tazobactam (Sod 4.5 gm/ Sodium Chloride) 100 mls @ 200 mls/hr IV Q6H [facility] Last Infusion: 01/10/23 10:48 Dose: 0 mls/hr Documented By: MERVAT Promethazine HCl 6.25 mg/ (Sodium Chloride) 50.25 mls @ 201 mls/hr IV ONCE PRN PRN Reason: Nausea and Vomiting Latanoprost (Latanoprost 0.005 % Ophth Carol 2.5 Ml Drops) 1 drop EYE-BOTH DAILY [facility] Last Admin: 01/10/23 10:07 Dose: 1 drop Documented By: MERVAT Magnesium Hydroxide (Milk Of Magnesia 30 Ml Oral.Susp) 30 ml NG-TUBE DAILY PRN PRN Reason: Constipation Melatonin (Melatonin 3 Mg Tablet) 6 mg PO BEDTIME PRN PRN Reason: Insomnia Last Admin: 01/07/23 20:33 Dose: 6 mg Documented By: SHEILA Naloxone HCl (Naloxone Hcl 0.4 Mg/Ml Vial) 0.2 mg IVPUSH Q2M PRN PRN Reason: Excessive sedation or RR < 8 Ondansetron HCl (Ondansetron Hcl 4 Mg/2 Ml Vial) 4 mg IVPUSH ONCE PRN PRN Reason: Nausea and Vomiting Oxycodone HCl (Oxycodone Hcl Immed Release 5 Mg Tablet) 5 mg PO Q4H PRN PRN Reason: Pain, Moderate(Pain Scale 4-6) Last Admin: 01/10/23 11:16 Dose: 5 mg Documented By: MERVAT Polyethylene Glycol (Polyethylene Glycol 3350 17 Gm Powd.Pack) 17 gm PO DAILY PRN PRN Reason: Constipation Sodium Chloride (0.9 % Sodium Chloride Flush 3 Ml Syringe) 3 ml IVFLUSH QSHIFT [facility] Last Admin: 01/10/23 10:06 Dose: 3 ml Documented By: MERVAT Labs 01/08/23 06:28 01/08/23 06:28 Assessment and Plan (1) Empyema lung: Status: Acute Plan 57-year-old male with a PMH significant for?HIV, anxiety, depression, hx of hepatitis C, hx of lung abscess in 2020, and mild intermittent asthma admitted on 12/30 with PNA, and 01/03 went into acute respiratory failure and required intubation in ICU where he was noted to have? left sided larege loculated efusio that was not present on admission.. on 01/05 he had chest tubes inserted by Dr. Anton, transfered out of ICU 01/07 Sepsis/pnumonia/empayema s/p chest tubes removal today -Surgery managing chest tubes -Continue Zosyn .cultures are ngative thus, sputum sandy porably not real Moderate protein calorie malnutrition Patient cachectic, globally weak, says he has had decreased p.o. intake of both fluids and solids, recent weight loss mbss done yesterday-advanced diet HTN--BP high, restart Norvasc 5, hold Proprnolol d/t low HR Mild intermittent asthma--no exacerbation HIV, Latest CD4 count on 11/29/2022 was 377 Continue home Biktarvy Peripheral neuropathy--Neurontin on hold Mood disorder--was on clonazepam, mirtazapine, and risperidone all stopped in ICU, continue holding until more alert mbss done-dist advanced. DVT Prophylaxis: Lovenox Need for inpatient: treatment of sepsis, getting chest tube removal today Time Spent With Patient Time: Total time managing care of this patient today ____ minutes. Quality Stroke Does the patient have a stroke diagnosis?: No VTE Prior VTE?: No VTE Risk Level:: Medical - moderate - high VTE Device Contraindication: Treatment Not Indicated VTE Drug Contraindication: N/A - Med Ordered
[2023-01-10] MEDS: Enoxaparin Sodium 40 MG/0.4 ML SYRINGE SUBCUT (22:00)
[2023-01-11] VITALS (8 sets, daily range): BP systolic 128–150; BP diastolic 64–85; PULSE 62–71; RESP 17–19; TEMP 36.6–37; O2SAT 91–97
[2023-01-11] MEDS: HYDROmorphone HCl 0.5 MG/0.5 ML SYRINGE IVPUSH ×4 (02:35→20:52)
[2023-01-11] MEDS: 0.9 % Sodium Chloride Flush 3 ML SYRINGE IVFLUSH ×4 (02:35→23:33)
[2023-01-11] MEDS: Piperacillin Sodium/Tazobactam 4.5 GM in 0.9 % Sodium Chloride 100 ML IV ×4 (02:37→20:53)
[2023-01-11] MEDS: oxyCODONE HCl Immed Release 5 MG TABLET PO ×4 (05:49→23:36)
[2023-01-11] MEDS: Docusate Sodium 100 MG CAPSULE PO ×2 (07:58→20:53)
[2023-01-11] MEDS: Bictegrav/Emtricit/Tenofov Ala TABLET 1 TAB PO (07:58)
[2023-01-11] MEDS: polyethylene glycoL 3350 17 GM POWD.PACK PO ×2 (07:58→20:53)
[2023-01-11] MEDS: Famotidine/PF 20 MG/2 ML VIAL IVPUSH ×2 (07:59→20:53)
[2023-01-11] MEDS: Latanoprost 0.005 % Ophth Sol 2.5 ML DROPS 1 DROP EYE-BOTH (07:59)
--- NOTE | 2023-01-11 13:41 | MHC.CLN ---
CONSULT FOR WT LOSS: PT PREVIOUSLY DX WITH MODERATE MALNUTRITION SEE FULL CLINICAL NUTRITION ASSESSMENTS DATED 01/01/23 AND 01/08/23 PT PULLED OUT KEOFEED TUBE 01/08/23; PT DID NOT RECEIVE TF SOLAR LAB TECHNICIAN RECOMMENDED CHOPPED DIET ON 01/09/23 DIET RX; CHOPPED-APPROPRIATE PT RECEIVING ENSURE TID PROVIDES 1050KCALS, 60G PROTEIN WITH 100% ACCEPTANCE PLAN MONITOR PO INTAKE CLOSELY WEEKLY WEIGHTS R/T MALNUTRITION DX
--- NOTE | 2023-01-11 15:06 | P.PNIM_ITS ---
Subjective Subjective Date of Service: 01/11/23 Interval History: acute respiratory failure Review of Systems seems sob improving, no fever or cough generalised kate very weak Physical Exam Vital Signs: Vital Signs: Last Vital Signs Temp 98.0 F 01/11/23 12:00 Pulse 62 01/11/23 12:00 Resp 19 01/11/23 12:00 BP 150/76 H 01/11/23 12:00 Pulse Ox 93 01/11/23 12:00 O2 Del Method Nasal Cannula 01/11/23 12:00 O2 Flow Rate 2 01/11/23 08:00 FiO2 30 01/06/23 10:00 Oxygen Flow Rate 3 01/10/23 12:00 BMI result Body Mass Index 24.4 Appearance: Alert.? Oriented X3.?sob improving cvs: rrr, [id number] , no murmur res: air entry fair ,slightly diminshed at bases , no rales or wheezing abd: no rebound or guarding ,nt, bs present. ext pulses present , no cyanosis . neuro: axo3 , nonfocal. Objective Data Active Medications Acetaminophen/Butalbital/Caffeine (Butalb/Acetamin/Caff 50/325/40 Tablet) 1 tab PO Q4H PRN PRN Reason: Headache Last Admin: 01/06/23 21:35 Dose: 1 tab Documented By: SANDHYA Bictegravir/Emtricitabine/Tenofovir (Bictegrav/Emtricit/Tenofov Ala Tablet) 1 tab PO DAILY [facility] Last Admin: 01/11/23 07:58 Dose: 1 tab Documented By: SAVAGE-LEONILA Docusate Sodium (Docusate Sodium 100 Mg Capsule) 100 mg PO BID [facility] Last Admin: 01/11/23 07:58 Dose: 100 mg Documented By: NAIF Enoxaparin Sodium (Enoxaparin Sodium 40 Mg/0.4 Ml Syringe) 40 mg SUBCUT Q24H [facility] Last Admin: 01/10/23 22:00 Dose: 40 mg Documented By: FRANNIE Famotidine (Famotidine/Pf 20 Mg/2 Ml Vial) 20 mg IVPUSH BID [facility] Last Admin: 01/11/23 07:59 Dose: 20 mg Documented By: NAIF Hydromorphone HCl (Hydromorphone Hcl 0.5 Mg/0.5 Ml Syringe) 0.5 mg IVPUSH Q4H PRN; Protocol PRN Reason: Pain, Severe (Pain Scale 7-10) Last Admin: 01/11/23 14:52 Dose: 0.5 mg Documented By: NAIF Piperacillin Sod/Tazobactam (Sod 4.5 gm/ Sodium Chloride) 100 mls @ 200 mls/hr IV Q6H [facility] Last Admin: 01/11/23 14:52 Dose: 200 mls/hr Documented By: NAIF Promethazine HCl 6.25 mg/ (Sodium Chloride) 50.25 mls @ 201 mls/hr IV ONCE PRN PRN Reason: Nausea and Vomiting Latanoprost (Latanoprost 0.005 % Ophth Carol 2.5 Ml Drops) 1 drop EYE-BOTH DAILY [facility] Last Admin: 01/11/23 07:59 Dose: 1 drop Documented By: NAIF Magnesium Hydroxide (Milk Of Magnesia 30 Ml Oral.Susp) 30 ml NG-TUBE DAILY PRN PRN Reason: Constipation Melatonin (Melatonin 3 Mg Tablet) 6 mg PO BEDTIME PRN PRN Reason: Insomnia Last Admin: 01/07/23 20:33 Dose: 6 mg Documented By: SHEILA Naloxone HCl (Naloxone Hcl 0.4 Mg/Ml Vial) 0.2 mg IVPUSH Q2M PRN PRN Reason: Excessive sedation or RR < 8 Ondansetron HCl (Ondansetron Hcl 4 Mg/2 Ml Vial) 4 mg IVPUSH ONCE PRN PRN Reason: Nausea and Vomiting Oxycodone HCl (Oxycodone Hcl Immed Release 5 Mg Tablet) 5 mg PO Q4H PRN PRN Reason: Pain, Moderate(Pain Scale 4-6) Last Admin: 01/11/23 11:42 Dose: 5 mg Documented By: NAIF Polyethylene Glycol (Polyethylene Glycol 3350 17 Gm Powd.Pack) 17 gm PO BID [facility] Last Admin: 01/11/23 08:55 Dose: Not Given Documented By: NAIF Non-Admin Reason: Previously Administered Sodium Chloride (0.9 % Sodium Chloride Flush 3 Ml Syringe) 3 ml IVFLUSH QSHIFT [facility] Last Admin: 01/11/23 14:52 Dose: 3 ml Documented By: NAIF Labs 01/08/23 06:28 01/08/23 06:28 Assessment and Plan (1) Empyema lung: Status: Acute Plan 57-year-old male with a PMH significant for?HIV, anxiety, depression, hx of hepatitis C, hx of lung abscess in 2020, and mild intermittent asthma admitted on 12/30 with PNA, and 01/03 went into acute respiratory failure and required intubation in ICU where he was noted to have? left sided larege loculated efusio that was not present on admission.. on 01/05 he had chest tubes inserted by Dr. Anton, transfered out of ICU 01/07 Sepsis/pnumonia/empayema s/p chest tubes removal ,cxr seems fine ,no pneumothorax. Continue Zosyn,cultures are ngative thus, sputum sandy porably not real, pater oxygen Moderate protein calorie malnutrition Patient cachectic, globally weak, says he has had decreased p.o. intake of both fluids and solids, recent weight loss mbss done yesterday-advanced diet HTN--BP high, restart Norvasc 5, hold Proprnolol d/t low HR Mild intermittent asthma--no exacerbation HIV, Latest CD4 count on 11/29/2022 was 377 Continue home Biktarvy Peripheral neuropathy--Neurontin on hold Mood disorder--was on clonazepam, mirtazapine, and risperidone all stopped in ICU, continue holding until more alert mbss done-dist advanced. DVT Prophylaxis: Lovenox Need for inpatient: pneumonia -need iv antibiotics ,taper oxygen , respiratory status is not optimally at, also is very generalized weak so need PT evaluation and may need possible rehab placement Time Spent With Patient Time: Total time managing care of this patient today ____ minutes. Quality Stroke Does the patient have a stroke diagnosis?: No VTE Prior VTE?: No VTE Risk Level:: Medical - moderate - high VTE Device Contraindication: Treatment Not Indicated VTE Drug Contraindication: N/A - Med Ordered
--- NOTE | 2023-01-11 16:57 | MHC.SL.SWA ---
Speech Pathologist Impression: Risk of Aspiration Due to: Poor PO Intake Dysphasia Diet Status: Recommend patient continue on Chopped/Advanced with thin liquids, pills whole with liquid (no change). Liquid Consistency and Strategies for Safe Swallow: Liquid Intake Recommendation: Thin Liquid Intake Strategies: Small Sips Solid Food Consistency: Dietary Recommendations: Chopped/Advanced (NDD3) Additional Modifications to Solid Foods: Oral Medication Intake: Whole with Liquid Please contact the pharmacy regarding appropriate crushable or liquid drug formulations that are available whenever modified delivery is recommended. Compensatory Strategies and Precautions to be Taken for Safe Swallow: Sitting Upright (90 deg) Liquids from Cup Liquids from Spoon Small Bites and Sips Alternate Liquids/Solids Oral Check Supervision While Eating and Drinking for Safe Swallow: Intermittent Supervision Foods to Avoid: Avoid difficult to chew solids. Swallowing Recommended Treatments: Compens. Strategy Educat. Recommendation for Speech: Inpatient Speech Therapy Comment: Pt seen during lunch. Patient was seated in chair beside bed in darkened room when lunch arrived. LABORER CAR BARN turned on lights and arranged tray to be within easy reach of the patient, and assisted with adding provided elements to food (lemon and salt substitute). Patient had a chopped meal of fish and broccoli, with thin liquids. Patient reported that he did like fish. He was able to self feed several bites of the fish, with prolonged period of anterior/disorganized mastication of the food noted on each bite. Patient was encouraged to take sips of liquid between bites, which helped clear minimal residual noted after swallow. Patient then stated that he didn't want any more, didn't like the taste of the fish. Patient was encouraged to drink ensure that had come with the meal and to eat the yogurt which was on the tray. Patient evidenced no difficulties with these consistencies. Recommend patient continue on Chopped/Advanced with thin liquids, pills whole with liquid (no change). Frequency/Duration: PRN Date Range for Service Req: Timeline to reassess: PRN Field Research Assistant Clinican/Clinical Fellow: No Supervisory Statement: I have reviewed and agree with the student/clinical fellow's documentation: N/A Speech Language Pathologist: Suki Duckworth M.A., CCC-LABORER CAR BARN
--- NOTE | 2023-01-11 23:07 | PC.NURSE ---
acquired care at 2300. Pt is in bed. sleeping.
[2023-01-11] MEDS: Enoxaparin Sodium 40 MG/0.4 ML SYRINGE SUBCUT (23:32)
[2023-01-12] VITALS (10 sets, daily range): BP systolic 113–170; BP diastolic 63–90; PULSE 50–64; RESP 17–20; TEMP 36.6–36.9; O2SAT 92–96
[2023-01-12] MEDS: HYDROmorphone HCl 0.5 MG/0.5 ML SYRINGE IVPUSH ×4 (01:41→22:42)
[2023-01-12] MEDS: Piperacillin Sodium/Tazobactam 4.5 GM in 0.9 % Sodium Chloride 100 ML IV ×2 (03:03→09:00)
[2023-01-12] MEDS: oxyCODONE HCl Immed Release 5 MG TABLET PO ×3 (04:17→19:48)
[2023-01-12] MEDS: 0.9 % Sodium Chloride Flush 3 ML SYRINGE IVFLUSH ×2 (08:56→19:51)
[2023-01-12] MEDS: Propranolol HCL 20 MG TABLET 60 MG PO ×2 (09:00→19:49)
[2023-01-12] MEDS: Bictegrav/Emtricit/Tenofov Ala TABLET 1 TAB PO (09:02)
[2023-01-12] MEDS: Famotidine/PF 20 MG/2 ML VIAL IVPUSH ×2 (09:02→19:51)
[2023-01-12] MEDS: Docusate Sodium 100 MG CAPSULE PO ×2 (09:02→19:49)
[2023-01-12] MEDS: polyethylene glycoL 3350 17 GM POWD.PACK PO (09:03)
--- NOTE | 2023-01-12 10:44 | MHC.CM.PN ---
Per Rounds, Patient is not yet medically cleared for dc. PT is recommending STR and CM will continue to follow.
--- NOTE | 2023-01-12 12:15 | MHC.CLN ---
F/U PO INTAKE 25-50% DIET RX: CHOPPED-APPROPRIATE PT RECEIVING ENSURE TID PROVIDES 1050KCALS, 60G PROTEIN WITH 100% ACCEPTANCE PLAN MONITOR PO INTAKE CLOSELY WEEKLY WEIGHTS R/T MALNUTRITION DX
[2023-01-12] MEDS: Lactated Ringers 1,000 ML 80 ML IVCONT (12:23)
[2023-01-12 13:14] LABS: Hematocrit 33.2 % (42.0-52.0); Hemoglobin 10.6 g/dl (14.0-18.0)
[2023-01-12 13:38] LABS: Anion Gap 13 (12-20); Blood Urea Nitrogen 11 mg/dL (9-16); Calcium 8.9 mg/dL (8.4-10.2); Carbon Dioxide 27 mmol/L (22-29); Chloride 106 mmol/L (96-108); Estimated Glomerular Filt Rate > 60; Glucose Random 110 mg/dL (60-115); Potassium 3.8 mmol/L (3.3-5.1); Sodium 142 mmol/L (135-145)
--- NOTE | 2023-01-12 15:58 | HO.PM.IMPN ---
Subjective Subjective Date of Service: 01/13/23 Interval History: acute respiratory failure Review of Systems c/o epigastric discomfort burning type Denies any chest pain or shortness of breath Still feel very generalized weak Physical Exam Vital Signs: Vital Signs: Last Vital Signs Temp 98.1 F 01/12/23 15:27 Pulse 64 01/12/23 15:27 Resp 17 01/12/23 15:27 BP 139/81 01/12/23 15:27 Pulse Ox 95 01/12/23 15:27 O2 Del Method Room Air 01/12/23 15:27 O2 Flow Rate 2 01/11/23 08:00 FiO2 30 01/06/23 10:00 Oxygen Flow Rate 3 01/10/23 12:00 BMI result Body Mass Index 24.4 Appearance: Alert.? Oriented X3.?sob improving cvs: rrr, [id number] , no murmur res: air entry fair ,slightly diminshed at bases , no rales or wheezing abd: no rebound or guarding ,nt, bs present. ext pulses present , no cyanosis . neuro: axo3 , nonfocal. Objective Data Active Medications Acetaminophen/Butalbital/Caffeine (Butalb/Acetamin/Caff 50/325/40 Tablet) 1 tab PO Q4H PRN PRN Reason: Headache Last Admin: 01/06/23 21:35 Dose: 1 tab Documented By: SANDHYA Bictegravir/Emtricitabine/Tenofovir (Bictegrav/Emtricit/Tenofov Ala Tablet) 1 tab PO DAILY [facility] Last Admin: 01/12/23 09:02 Dose: 1 tab Documented By: SAROJ Docusate Sodium (Docusate Sodium 100 Mg Capsule) 100 mg PO BID [facility] Last Admin: 01/12/23 09:02 Dose: 100 mg Documented By: SAROJ Enoxaparin Sodium (Enoxaparin Sodium 40 Mg/0.4 Ml Syringe) 40 mg SUBCUT Q24H [facility] Last Admin: 01/11/23 23:32 Dose: 40 mg Documented By: CHAZ Famotidine (Famotidine/Pf 20 Mg/2 Ml Vial) 20 mg IVPUSH BID [facility] Last Admin: 01/12/23 09:02 Dose: 20 mg Documented By: SAROJ Hydromorphone HCl (Hydromorphone Hcl 0.5 Mg/0.5 Ml Syringe) 0.5 mg IVPUSH Q4H PRN; Protocol PRN Reason: Pain, Severe (Pain Scale 7-10) Last Admin: 01/12/23 08:55 Dose: 0.5 mg Documented By: SAROJ Promethazine HCl 6.25 mg/ (Sodium Chloride) 50.25 mls @ 201 mls/hr IV ONCE PRN PRN Reason: Nausea and Vomiting Lactated Ringer's (Lr) 1,000 mls @ 80 mls/hr IVCONT .[id number] [facility] Last Admin: 01/12/23 12:23 Dose: 80 mls/hr Documented By: SAROJ Latanoprost (Latanoprost 0.005 % Ophth Carol 2.5 Ml Drops) 1 drop EYE-BOTH DAILY [facility] Last Admin: 01/12/23 09:11 Dose: Not Given Documented By: SAROJ Non-Admin Reason: pt refused at this time Magnesium Hydroxide (Milk Of Magnesia 30 Ml Oral.Susp) 30 ml NG-TUBE DAILY PRN PRN Reason: Constipation Melatonin (Melatonin 3 Mg Tablet) 6 mg PO BEDTIME PRN PRN Reason: Insomnia Last Admin: 01/07/23 20:33 Dose: 6 mg Documented By: SHEILA Mirtazapine (Mirtazapine 30 Mg Tablet) 30 mg PO BEDTIME [facility] Naloxone HCl (Naloxone Hcl 0.4 Mg/Ml Vial) 0.2 mg IVPUSH Q2M PRN PRN Reason: Excessive sedation or RR < 8 Omeprazole (Omeprazole 20 Mg Capsule.) 20 mg PO BID@0630,1630 [facility] Ondansetron HCl (Ondansetron Hcl 4 Mg/2 Ml Vial) 4 mg IVPUSH ONCE PRN PRN Reason: Nausea and Vomiting Oxycodone HCl (Oxycodone Hcl Immed Release 5 Mg Tablet) 5 mg PO Q4H PRN PRN Reason: Pain, Moderate(Pain Scale 4-6) Last Admin: 01/12/23 11:25 Dose: 5 mg Documented By: SAROJ Polyethylene Glycol (Polyethylene Glycol 3350 17 Gm Powd.Pack) 17 gm PO BID [facility] Last Admin: 01/12/23 09:03 Dose: 17 gm Documented By: SAROJ Propranolol HCl (Propranolol Hcl 20 Mg Tablet) 60 mg PO BID [facility]; Protocol Last Admin: 01/12/23 09:00 Dose: 60 mg Documented By: SAROJ Sodium Chloride (0.9 % Sodium Chloride Flush 3 Ml Syringe) 3 ml IVFLUSH QSHIFT [facility] Last Admin: 01/12/23 08:56 Dose: 3 ml Documented By: SAROJ Labs 01/12/23 13:08 01/12/23 13:08 Labs: Laboratory Results - last 24 hr 01/12/23 13:08 Anion Gap 13 Estim Creat Clear Calc 99.0 Estimated GFR > 60 Random Glucose 110 Calcium 8.9 D Assessment and Plan (1) Empyema lung: Status: Acute Plan 57-year-old male with a PMH significant for?HIV, anxiety, depression, hx of hepatitis C, hx of lung abscess in 2020, and mild intermittent asthma admitted on 12/30 with PNA, and 01/03 went into acute respiratory failure and required intubation in ICU where he was noted to have? left sided larege loculated efusio that was not present on admission.. on 01/05 he had chest tubes inserted by Dr. Anton, transfered out of ICU 01/07 Sepsis/pnumonia/empayema s/p chest tubes removal ,cxr seems fine ,no pneumothorax. Continue Zosyn,cultures are ngative thus, sputum sandy porably not real, pater oxygen d/w Id -patient already received 13 days iv antibiotics, cxr seems fairly clear moniter off antibiotics Moderate protein calorie malnutrition Patient cachectic, globally weak, says he has had decreased p.o. intake of both fluids and solids, recent weight loss mbss done yesterday-advanced diet HTN--BP high, restart Norvasc 5, hold Proprnolol d/t low HR Mild intermittent asthma--no exacerbation HIV, Latest CD4 count on 11/29/2022 was 377 Continue home Biktarvy Peripheral neuropathy--Neurontin on hold Mood disorder--was on clonazepam, mirtazapine, and risperidone all stopped in ICU, continue holding until more alert mbss done-dist advanced. Epigastric discomfort: mostly burning type passing gases,bowels , eating fine,abd exam benign added ppi moniter closey DVT Prophylaxis: Lovenox Pt-str Need for inpatient: very generalized weak so need PT evaluation and may need possible rehab placement Time Spent With Patient Time: Total time managing care of this patient today ____ minutes. Quality Stroke Does the patient have a stroke diagnosis?: No VTE Prior VTE?: No VTE Risk Level:: Medical - moderate - high VTE Device Contraindication: Treatment Not Indicated VTE Drug Contraindication: N/A - Med Ordered
[2023-01-12] MEDS: Omeprazole 20 MG CAPSULE.DR PO (17:51)
[2023-01-12] MEDS: Mirtazapine 30 MG TABLET PO (19:49)
[2023-01-12] MEDS: Melatonin 3 MG TABLET 6 MG PO (19:49)
[2023-01-12] MEDS: Enoxaparin Sodium 40 MG/0.4 ML SYRINGE SUBCUT (22:42)
[2023-01-13] VITALS (9 sets, daily range): BP systolic 136–167; BP diastolic 69–92; PULSE 52–93; RESP 17–20; TEMP 36.8–37.3; O2SAT 93–96
[2023-01-13] MEDS: Lactated Ringers 1,000 ML 80 ML IVCONT ×2 (01:38→14:33)
[2023-01-13] MEDS: oxyCODONE HCl Immed Release 5 MG TABLET PO ×2 (03:05→14:29)
[2023-01-13] MEDS: Omeprazole 20 MG CAPSULE.DR PO ×2 (05:33→17:34)
[2023-01-13] MEDS: Famotidine/PF 20 MG/2 ML VIAL IVPUSH ×2 (07:57→22:31)
[2023-01-13] MEDS: Propranolol HCL 20 MG TABLET 60 MG PO ×2 (07:57→22:30)
[2023-01-13] MEDS: Docusate Sodium 100 MG CAPSULE PO ×2 (07:57→22:30)
[2023-01-13] MEDS: HYDROmorphone HCl 0.5 MG/0.5 ML SYRINGE IVPUSH ×3 (07:57→22:38)
[2023-01-13] MEDS: Bictegrav/Emtricit/Tenofov Ala TABLET 1 TAB PO (07:57)
[2023-01-13] MEDS: polyethylene glycoL 3350 17 GM POWD.PACK PO ×2 (07:58→22:30)
[2023-01-13] MEDS: 0.9 % Sodium Chloride Flush 3 ML SYRINGE IVFLUSH (08:03)
--- NOTE | 2023-01-13 11:28 | HO.PM.IMPN ---
Subjective Subjective Date of Service: 01/14/23 Interval History: acute respiratory failure Review of Systems Denies any chest pain or shortness of breath Still feel very generalized weak Physical Exam Vital Signs: Vital Signs: Last Vital Signs Temp 99.1 F 01/13/23 08:00 Pulse 59 01/13/23 08:00 Resp 18 01/13/23 08:00 BP 152/83 H 01/13/23 08:00 Pulse Ox 94 01/13/23 08:00 O2 Del Method Room Air 01/13/23 08:00 O2 Flow Rate 2 01/11/23 08:00 FiO2 30 01/06/23 10:00 Oxygen Flow Rate 3 01/10/23 12:00 BMI result Body Mass Index 24.4 Appearance: Alert.? Oriented X3.?sob improving cvs: rrr, [id number] , no murmur res: air entry fair ,slightly diminshed at bases , no rales or wheezing abd: no rebound or guarding ,nt, bs present. ext pulses present , no cyanosis . neuro: axo3 , nonfocal. Objective Data Active Medications Acetaminophen/Butalbital/Caffeine (Butalb/Acetamin/Caff 50/325/40 Tablet) 1 tab PO Q4H PRN PRN Reason: Headache Last Admin: 01/06/23 21:35 Dose: 1 tab Documented By: SANDHYA Bictegravir/Emtricitabine/Tenofovir (Bictegrav/Emtricit/Tenofov Ala Tablet) 1 tab PO DAILY [facility] Last Admin: 01/13/23 07:57 Dose: 1 tab Documented By: LAMAR Docusate Sodium (Docusate Sodium 100 Mg Capsule) 100 mg PO BID [facility] Last Admin: 01/13/23 07:57 Dose: 100 mg Documented By: LAMAR Enoxaparin Sodium (Enoxaparin Sodium 40 Mg/0.4 Ml Syringe) 40 mg SUBCUT Q24H [facility] Last Admin: 01/12/23 22:42 Dose: 40 mg Documented By: CHAZ Famotidine (Famotidine/Pf 20 Mg/2 Ml Vial) 20 mg IVPUSH BID [facility] Last Admin: 01/13/23 07:57 Dose: 20 mg Documented By: LAMAR Hydromorphone HCl (Hydromorphone Hcl 0.5 Mg/0.5 Ml Syringe) 0.5 mg IVPUSH Q4H PRN; Protocol PRN Reason: Pain, Severe (Pain Scale 7-10) Last Admin: 01/13/23 07:57 Dose: 0.5 mg Documented By: LAMAR Promethazine HCl 6.25 mg/ (Sodium Chloride) 50.25 mls @ 201 mls/hr IV ONCE PRN PRN Reason: Nausea and Vomiting Lactated Ringer's (Lr) 1,000 mls @ 80 mls/hr IVCONT .[id number] [facility] Last Admin: 01/13/23 01:38 Dose: 80 mls/hr Documented By: CHAZ Latanoprost (Latanoprost 0.005 % Ophth Carol 2.5 Ml Drops) 1 drop EYE-BOTH DAILY [facility] Last Admin: 01/13/23 10:15 Dose: Not Given Documented By: LAMAR Non-Admin Reason: Med Not Available Magnesium Hydroxide (Milk Of Magnesia 30 Ml Oral.Susp) 30 ml NG-TUBE DAILY PRN PRN Reason: Constipation Melatonin (Melatonin 3 Mg Tablet) 6 mg PO BEDTIME PRN PRN Reason: Insomnia Last Admin: 01/12/23 19:49 Dose: 6 mg Documented By: CHAZ Mirtazapine (Mirtazapine 30 Mg Tablet) 30 mg PO BEDTIME [facility] Last Admin: 01/12/23 19:49 Dose: 30 mg Documented By: CHAZ Naloxone HCl (Naloxone Hcl 0.4 Mg/Ml Vial) 0.2 mg IVPUSH Q2M PRN PRN Reason: Excessive sedation or RR < 8 Omeprazole (Omeprazole 20 Mg Capsule.Dr) 20 mg PO BID@0630,1630 [facility] Last Admin: 01/13/23 05:33 Dose: 20 mg Documented By: CHAZ Ondansetron HCl (Ondansetron Hcl 4 Mg/2 Ml Vial) 4 mg IVPUSH ONCE PRN PRN Reason: Nausea and Vomiting Oxycodone HCl (Oxycodone Hcl Immed Release 5 Mg Tablet) 5 mg PO Q4H PRN PRN Reason: Pain, Moderate(Pain Scale 4-6) Last Admin: 01/13/23 03:05 Dose: 5 mg Documented By: CHAZ Polyethylene Glycol (Polyethylene Glycol 3350 17 Gm Powd.Pack) 17 gm PO BID [facility] Last Admin: 01/13/23 07:58 Dose: 17 gm Documented By: LAMAR Propranolol HCl (Propranolol Hcl 20 Mg Tablet) 60 mg PO BID [facility]; Protocol Last Admin: 01/13/23 07:57 Dose: 60 mg Documented By: LAMAR Sodium Chloride (0.9 % Sodium Chloride Flush 3 Ml Syringe) 3 ml IVFLUSH QSHIFT [facility] Last Admin: 01/13/23 08:03 Dose: 3 ml Documented By: LAMAR Labs 01/12/23 13:08 01/12/23 13:08 Labs: Laboratory Results - last 24 hr 01/12/23 13:08 Anion Gap 13 Estim Creat Clear Calc 99.0 Estimated GFR > 60 Random Glucose 110 Calcium 8.9 D Assessment and Plan (1) Empyema lung: Status: Acute Plan 57-year-old male with a PMH significant for?HIV, anxiety, depression, hx of hepatitis C, hx of lung abscess in 2020, and mild intermittent asthma admitted on 12/30 with PNA, and 01/03 went into acute respiratory failure and required intubation in ICU where he was noted to have? left sided larege loculated efusio that was not present on admission.. on 01/05 he had chest tubes inserted by Dr. Anton, transfered out of ICU 01/07 Sepsis/pnumonia/empayema s/p chest tubes removal ,cxr seems fine ,no pneumothorax. Continue Zosyn,cultures are ngative thus, sputum sandy porably not real, pater oxygen d/w Id -patient already received 13 days iv antibiotics, cxr seems fairly clear moniter off antibiotics Moderate protein calorie malnutrition Patient cachectic, globally weak, says he has had decreased p.o. intake of both fluids and solids, recent weight loss mbss done yesterday-advanced diet HTN--BP high, restart Norvasc 5, hold Proprnolol d/t low HR Mild intermittent asthma--no exacerbation HIV, Latest CD4 count on 11/29/2022 was 377 Continue home Biktarvy Peripheral neuropathy--Neurontin on hold Mood disorder--was on clonazepam, mirtazapine, and risperidone all stopped in ICU, continue holding until more alert mbss done-dist advanced. Epigastric discomfort: mostly burning type passing gases,bowels , eating fine,abd exam benign added ppi moniter closey DVT Prophylaxis: Lovenox Pt-str Need for inpatient: awaitin rehab placement Time Spent With Patient Time: Total time managing care of this patient today ____ minutes. Quality Stroke Does the patient have a stroke diagnosis?: No VTE Prior VTE?: No VTE Risk Level:: Medical - moderate - high VTE Device Contraindication: Treatment Not Indicated VTE Drug Contraindication: N/A - Med Ordered
--- NOTE | 2023-01-13 13:24 | MHC.CM.PN ---
PER [facility]OSPITLALIST PT MEDICALLY CLEARED FOR D/C HOWEVER PT STILL AWAITING BED OFFER, D/T SA REFERRAL EXPANDED AND [facility] [employer] CAN OFFER A BED FOR SUNDAY PENDING INSURANCE AUTH FROM [facility], CM WILL CONT TO FOLLOW.
[2023-01-13] MEDS: Enoxaparin Sodium 40 MG/0.4 ML SYRINGE SUBCUT (22:30)
[2023-01-13] MEDS: Mirtazapine 30 MG TABLET PO (22:30)
[2023-01-13] MEDS: Melatonin 3 MG TABLET 6 MG PO (22:38)
[2023-01-14] VITALS (7 sets, daily range): BP systolic 136–156; BP diastolic 64–84; PULSE 48–62; RESP 18–20; TEMP 36.4–37.1; O2SAT 93–98
[2023-01-14] MEDS: Omeprazole 20 MG CAPSULE.DR PO ×2 (06:23→15:54)
[2023-01-14] MEDS: polyethylene glycoL 3350 17 GM POWD.PACK PO ×2 (09:16→19:51)
[2023-01-14] MEDS: Propranolol HCL 20 MG TABLET 60 MG PO ×2 (09:16→19:52)
[2023-01-14] MEDS: Famotidine/PF 20 MG/2 ML VIAL IVPUSH ×2 (09:16→19:52)
[2023-01-14] MEDS: HYDROmorphone HCl 0.5 MG/0.5 ML SYRINGE IVPUSH ×3 (09:17→19:52)
[2023-01-14] MEDS: Bictegrav/Emtricit/Tenofov Ala TABLET 1 TAB PO (09:17)
[2023-01-14] MEDS: 0.9 % Sodium Chloride Flush 3 ML SYRINGE IVFLUSH ×3 (09:17→19:52)
[2023-01-14] MEDS: Docusate Sodium 100 MG CAPSULE PO ×2 (09:17→19:51)
[2023-01-14] MEDS: Latanoprost 0.005 % Ophth Sol 2.5 ML DROPS 1 DROP EYE-BOTH (09:26)
--- NOTE | 2023-01-14 11:42 | HO.PM.IMPN ---
Subjective Subjective Date of Service: 01/14/23 Interval History: acute respiratory failure Review of Systems Denies any chest pain or shortness of breath Still feel very generalized weak Physical Exam Vital Signs: Vital Signs: Last Vital Signs Temp 98.8 F 01/14/23 11:16 Pulse 54 01/14/23 11:16 Resp 18 01/14/23 11:16 BP 140/84 H 01/14/23 11:16 Pulse Ox 96 01/14/23 11:16 O2 Del Method Room Air 01/14/23 11:16 O2 Flow Rate 2 01/11/23 08:00 FiO2 30 01/06/23 10:00 Oxygen Flow Rate 3 01/10/23 12:00 BMI result Body Mass Index 24.4 Appearance: Alert.? Oriented X3.?sob improving cvs: rrr, [id number] , no murmur res: air entry fair ,slightly diminshed at bases , no rales or wheezing abd: no rebound or guarding ,nt, bs present. ext pulses present , no cyanosis . neuro: axo3 , nonfocal. Objective Data Active Medications Acetaminophen/Butalbital/Caffeine (Butalb/Acetamin/Caff 50/325/40 Tablet) 1 tab PO Q4H PRN PRN Reason: Headache Last Admin: 01/06/23 21:35 Dose: 1 tab Documented By: SANDHYA Bictegravir/Emtricitabine/Tenofovir (Bictegrav/Emtricit/Tenofov Ala Tablet) 1 tab PO DAILY [facility] Last Admin: 01/14/23 09:17 Dose: 1 tab Documented By: LAMAR Docusate Sodium (Docusate Sodium 100 Mg Capsule) 100 mg PO BID [facility] Last Admin: 01/14/23 09:17 Dose: 100 mg Documented By: LAMAR Enoxaparin Sodium (Enoxaparin Sodium 40 Mg/0.4 Ml Syringe) 40 mg SUBCUT Q24H [facility] Last Admin: 01/13/23 22:30 Dose: 40 mg Documented By: CIRILO Famotidine (Famotidine/Pf 20 Mg/2 Ml Vial) 20 mg IVPUSH BID [facility] Last Admin: 01/14/23 09:16 Dose: 20 mg Documented By: LAMAR Hydromorphone HCl (Hydromorphone Hcl 0.5 Mg/0.5 Ml Syringe) 0.5 mg IVPUSH Q4H PRN; Protocol PRN Reason: Pain, Severe (Pain Scale 7-10) Last Admin: 01/14/23 09:17 Dose: 0.5 mg Documented By: LAMAR Promethazine HCl 6.25 mg/ (Sodium Chloride) 50.25 mls @ 201 mls/hr IV ONCE PRN PRN Reason: Nausea and Vomiting Lactated Ringer's (Lr) 1,000 mls @ 80 mls/hr IVCONT .[id number] [facility] Last Infusion: 01/14/23 04:27 Dose: 0 mls/hr Documented By: STANLEY Latanoprost (Latanoprost 0.005 % Ophth Carol 2.5 Ml Drops) 1 drop EYE-BOTH DAILY [facility] Last Admin: 01/14/23 09:26 Dose: 1 drop Documented By: LAMAR Magnesium Hydroxide (Milk Of Magnesia 30 Ml Oral.Susp) 30 ml NG-TUBE DAILY PRN PRN Reason: Constipation Melatonin (Melatonin 3 Mg Tablet) 6 mg PO BEDTIME PRN PRN Reason: Insomnia Last Admin: 01/13/23 22:38 Dose: 6 mg Documented By: CIRILO Mirtazapine (Mirtazapine 30 Mg Tablet) 30 mg PO BEDTIME [facility] Last Admin: 01/13/23 22:30 Dose: 30 mg Documented By: CIRILO Naloxone HCl (Naloxone Hcl 0.4 Mg/Ml Vial) 0.2 mg IVPUSH Q2M PRN PRN Reason: Excessive sedation or RR < 8 Omeprazole (Omeprazole 20 Mg Capsule.) 20 mg PO BID@0630,1630 [facility] Last Admin: 01/14/23 06:23 Dose: 20 mg Documented By: STANLEY Ondansetron HCl (Ondansetron Hcl 4 Mg/2 Ml Vial) 4 mg IVPUSH ONCE PRN PRN Reason: Nausea and Vomiting Oxycodone HCl (Oxycodone Hcl Immed Release 5 Mg Tablet) 5 mg PO Q4H PRN PRN Reason: Pain, Moderate(Pain Scale 4-6) Last Admin: 01/13/23 14:29 Dose: 5 mg Documented By: LAMAR Polyethylene Glycol (Polyethylene Glycol 3350 17 Gm Powd.Pack) 17 gm PO BID [facility] Last Admin: 01/14/23 09:16 Dose: 17 gm Documented By: LAMAR Propranolol HCl (Propranolol Hcl 20 Mg Tablet) 60 mg PO BID [facility]; Protocol Last Admin: 01/14/23 09:16 Dose: 60 mg Documented By: LAMAR Sodium Chloride (0.9 % Sodium Chloride Flush 3 Ml Syringe) 3 ml IVFLUSH QSHIFT [facility] Last Admin: 01/14/23 09:17 Dose: 3 ml Documented By: LAMAR Labs 01/12/23 13:08 01/12/23 13:08 Assessment and Plan (1) Empyema lung: Status: Acute Plan 57-year-old male with a PMH significant for?HIV, anxiety, depression, hx of hepatitis C, hx of lung abscess in 2020, and mild intermittent asthma admitted on 12/30 with PNA, and 01/03 went into acute respiratory failure and required intubation in ICU where he was noted to have? left sided larege loculated efusio that was not present on admission.. on 01/05 he had chest tubes inserted by Dr. Anton, transfered out of ICU 01/07 Sepsis/pnumonia/empayema s/p chest tubes removal ,cxr seems fine ,no pneumothorax. Continue Zosyn,cultures are ngative thus, sputum sandy porably not real, pater oxygen d/w Id -patient already received 13 days iv antibiotics, cxr seems fairly clear moniter off antibiotics Moderate protein calorie malnutrition Patient cachectic, globally weak, says he has had decreased p.o. intake of both fluids and solids, recent weight loss mbss done yesterday-advanced diet HTN--BP high, restart Norvasc 5, hold Proprnolol d/t low HR Mild intermittent asthma--no exacerbation HIV, Latest CD4 count on 11/29/2022 was 377 Continue home Biktarvy Peripheral neuropathy--Neurontin on hold Mood disorder--was on clonazepam, mirtazapine, and risperidone all stopped in ICU, continue holding until more alert mbss done-dist advanced. Epigastric discomfort: mostly burning type passing gases,bowels , eating fine,abd exam benign added ppi moniter closey DVT Prophylaxis: Lovenox Pt-str Need for inpatient: awaitin rehab placement Time Spent With Patient Time: Total time managing care of this patient today ____ minutes. Quality Stroke Does the patient have a stroke diagnosis?: No VTE Prior VTE?: No VTE Risk Level:: Medical - moderate - high VTE Device Contraindication: Treatment Not Indicated VTE Drug Contraindication: N/A - Med Ordered
[2023-01-14] MEDS: oxyCODONE HCl Immed Release 5 MG TABLET PO ×2 (12:18→17:29)
[2023-01-14] MEDS: Melatonin 3 MG TABLET 6 MG PO (19:51)
[2023-01-14] MEDS: Mirtazapine 30 MG TABLET PO (19:51)
[2023-01-14] MEDS: Enoxaparin Sodium 40 MG/0.4 ML SYRINGE SUBCUT (19:53)
[2023-01-15] VITALS (8 sets, daily range): BP systolic 125–178; BP diastolic 66–84; PULSE 47–52; RESP 18–20; TEMP 36.4–36.8; O2SAT 93–100
[2023-01-15] MEDS: HYDROmorphone HCl 0.5 MG/0.5 ML SYRINGE IVPUSH ×3 (00:06→13:54)
[2023-01-15] MEDS: oxyCODONE HCl Immed Release 5 MG TABLET PO (05:35)
[2023-01-15] MEDS: Omeprazole 20 MG CAPSULE.DR PO (05:35)
[2023-01-15] MEDS: Propranolol HCL 20 MG TABLET 60 MG PO (09:18)
[2023-01-15] MEDS: 0.9 % Sodium Chloride Flush 3 ML SYRINGE IVFLUSH ×2 (09:19→13:54)
[2023-01-15] MEDS: Bictegrav/Emtricit/Tenofov Ala TABLET 1 TAB PO (09:20)
[2023-01-15] MEDS: Famotidine/PF 20 MG/2 ML VIAL IVPUSH (09:20)
[2023-01-15] MEDS: Docusate Sodium 100 MG CAPSULE PO (09:20)
[2023-01-15] MEDS: Latanoprost 0.005 % Ophth Sol 2.5 ML DROPS 1 DROP EYE-BOTH (09:21)
--- NOTE | 2023-01-15 11:16 | PC.NURSE ---
Assumed care of patient at this time.
--- NOTE | 2023-01-15 11:41 | MHC.CLN ---
F/U PO INTAKE VARIABLE DIET RX: CHOPPED-APPROPRIATE PT RECEIVING ENSURE TID PROVIDES 1050KCALS, 60G PROTEIN WITH 100% ACCEPTANCE MONITOR PO INTAKE CLOSELY WEEKLY WEIGHTS R/T MALNUTRITION DX
--- NOTE | 2023-01-15 11:51 | HO.PM.IMPN ---
Subjective Subjective Date of Service: 01/15/23 Interval History: acute respiratory failure Review of Systems Denies any chest pain or shortness of breath Still feel very generalized weak Physical Exam Vital Signs: Vital Signs: Last Vital Signs Temp 98.3 F 01/15/23 07:14 Pulse 51 01/15/23 07:14 Resp 18 01/15/23 09:21 BP 158/74 H 01/15/23 07:14 Pulse Ox 94 01/15/23 07:14 O2 Del Method Room Air 01/15/23 07:14 O2 Flow Rate 2 01/11/23 08:00 FiO2 30 01/06/23 10:00 Oxygen Flow Rate 3 01/10/23 12:00 BMI result Body Mass Index 24.4 Appearance: Alert.? Oriented X3.?sob improving cvs: rrr, [id number] , no murmur res: air entry fair ,slightly diminshed at bases , no rales or wheezing abd: no rebound or guarding ,nt, bs present. ext pulses present , no cyanosis . neuro: axo3 , nonfocal. Objective Data Active Medications Acetaminophen/Butalbital/Caffeine (Butalb/Acetamin/Caff 50/325/40 Tablet) 1 tab PO Q4H PRN PRN Reason: Headache Last Admin: 01/06/23 21:35 Dose: 1 tab Documented By: SANDHYA Bictegravir/Emtricitabine/Tenofovir (Bictegrav/Emtricit/Tenofov Ala Tablet) 1 tab PO DAILY [facility] Last Admin: 01/15/23 09:20 Dose: 1 tab Documented By: SANDHYA Docusate Sodium (Docusate Sodium 100 Mg Capsule) 100 mg PO BID [facility] Last Admin: 01/15/23 09:20 Dose: 100 mg Documented By: SANDHYA Enoxaparin Sodium (Enoxaparin Sodium 40 Mg/0.4 Ml Syringe) 40 mg SUBCUT Q24H [facility] Last Admin: 01/14/23 19:53 Dose: 40 mg Documented By: NAIF Famotidine (Famotidine/Pf 20 Mg/2 Ml Vial) 20 mg IVPUSH BID [facility] Last Admin: 01/15/23 09:20 Dose: 20 mg Documented By: SANDHYA Hydromorphone HCl (Hydromorphone Hcl 0.5 Mg/0.5 Ml Syringe) 0.5 mg IVPUSH Q4H PRN; Protocol PRN Reason: Pain, Severe (Pain Scale 7-10) Last Admin: 01/15/23 09:21 Dose: 0.5 mg Documented By: SANDHYA Promethazine HCl 6.25 mg/ (Sodium Chloride) 50.25 mls @ 201 mls/hr IV ONCE PRN PRN Reason: Nausea and Vomiting Latanoprost (Latanoprost 0.005 % Ophth Carol 2.5 Ml Drops) 1 drop EYE-BOTH DAILY [facility] Last Admin: 01/15/23 09:21 Dose: 1 drop Documented By: SANDHYA Magnesium Hydroxide (Milk Of Magnesia 30 Ml Oral.Susp) 30 ml NG-TUBE DAILY PRN PRN Reason: Constipation Melatonin (Melatonin 3 Mg Tablet) 6 mg PO BEDTIME PRN PRN Reason: Insomnia Last Admin: 01/14/23 19:51 Dose: 6 mg Documented By: NAIF Mirtazapine (Mirtazapine 30 Mg Tablet) 30 mg PO BEDTIME [facility] Last Admin: 01/14/23 19:51 Dose: 30 mg Documented By: NAIF Naloxone HCl (Naloxone Hcl 0.4 Mg/Ml Vial) 0.2 mg IVPUSH Q2M PRN PRN Reason: Excessive sedation or RR < 8 Omeprazole (Omeprazole 20 Mg Capsule.Dr) 20 mg PO BID@0630,1630 [facility] Last Admin: 01/15/23 05:35 Dose: 20 mg Documented By: RUTH Ondansetron HCl (Ondansetron Hcl 4 Mg/2 Ml Vial) 4 mg IVPUSH ONCE PRN PRN Reason: Nausea and Vomiting Polyethylene Glycol (Polyethylene Glycol 3350 17 Gm Powd.Pack) 17 gm PO BID [facility] Last Admin: 01/15/23 09:33 Dose: Not Given Documented By: SANDHYA Non-Admin Reason: Patient Refused Propranolol HCl (Propranolol Hcl 20 Mg Tablet) 60 mg PO BID [facility]; Protocol Last Admin: 01/15/23 09:18 Dose: 60 mg Documented By: SANDHYA Sodium Chloride (0.9 % Sodium Chloride Flush 3 Ml Syringe) 3 ml IVFLUSH QSHIFT [facility] Last Admin: 01/15/23 09:19 Dose: 3 ml Documented By: SANDHYA Labs 01/12/23 13:08 01/12/23 13:08 Assessment and Plan (1) Empyema lung: Status: Acute Plan 57-year-old male with a PMH significant for?HIV, anxiety, depression, hx of hepatitis C, hx of lung abscess in 2020, and mild intermittent asthma admitted on 12/30 with PNA, and 01/03 went into acute respiratory failure and required intubation in ICU where he was noted to have? left sided larege loculated efusio that was not present on admission.. on 01/05 he had chest tubes inserted by Dr. Anton, transfered out of ICU 01/07 Sepsis/pnumonia/empayema s/p chest tubes removal ,cxr seems fine ,no pneumothorax. Continue Zosyn,cultures are ngative thus, sputum sandy porably not real, pater oxygen d/w Id -patient already received 13 days iv antibiotics, cxr seems fairly clear moniter off antibiotics Moderate protein calorie malnutrition Patient cachectic, globally weak, says he has had decreased p.o. intake of both fluids and solids, recent weight loss mbss done yesterday-advanced diet HTN--BP high, restart Norvasc 5, hold Proprnolol d/t low HR Mild intermittent asthma--no exacerbation HIV, Latest CD4 count on 11/29/2022 was 377 Continue home Biktarvy Peripheral neuropathy--Neurontin on hold Mood disorder--was on clonazepam, mirtazapine, and risperidone all stopped in ICU, continue holding until more alert mbss done-dist advanced. Epigastric discomfort: mostly burning type passing gases,bowels , eating fine,abd exam benign added ppi moniter closey DVT Prophylaxis: Lovenox Pt-str Need for inpatient: awaitin rehab placement Time Spent With Patient Time: Total time managing care of this patient today ____ minutes. Quality Stroke Does the patient have a stroke diagnosis?: No VTE Prior VTE?: No VTE Risk Level:: Medical - moderate - high VTE Device Contraindication: Treatment Not Indicated VTE Drug Contraindication: N/A - Med Ordered
--- NOTE | 2023-01-15 13:26 | MHC.CM.PN ---
Patient has been accepted at [facility] pending [employer] auth. CM spoke with Patient's VNA/RN from [facility] @ [phone], who will be providing the Code to Patient's lock box to Patient's Sister, once Patient's Sister arrives at SNF with the box, so that Patient can take his Biktarvy med from home while at the SNF. CM awaits word from [facility] that they have CCA auth. CM will follow.
[2023-01-15] MEDS: amLODIPine Besylate 2.5 MG TABLET PO (13:53)
--- NOTE | 2023-01-15 14:49 | MHC.CM.PN ---
Patient has been medically cleared for dc to SNF/STR today. Patient will dc to [facility] today at 4:30PM, via [facility]. Patient and his Sister are aware of and in agreement with the dc plan. IMM addressed with Patient earlier today.
[2023-01-15 15:34] LABS: COVID-19 Test Negative (Negative); IDNOW Serial# 08D9AD1C
--- NOTE | 2023-01-15 15:39 | P.DS_ITS ---
DS: Providers Provider Date of Service: 01/15/23 Date of admission: 12/30/22 22:50 Date of discharge: 01/15/23 Primary care physician: Akira Lobo MD Consults: 12/30/22 22:35 Consult to Infectious Diseases [place]ine [place] [facility] [place] Reason for consultation: Pneumonia failed outpatient therapy, HIV+ ?necrosis Consult to Pulmonology Routine Consulting Provider[place] [facility] [place] Reason for consultation: Pneumonia failed outpatient therapy, HIV+ ?necrosis 01/04/23 08:00 Consult to General Surgery Routine Consulting Provider: Fareed Anton Reason for consultation: Loculated left pleural effusion, evaluate for decortication Has provider been notified: No DS: Diagnosis Discharge Diagnosis (1) Empyema lung: Status: Acute (2) HIV (human immunodeficiency virus infection): Status: Acute (3) Loculated pleural effusion: Status: Acute (4) Pneumonia: Status: Acute DS: Summary Hospital Course Hospital Course: 57-year-old male with a PMH significant for?HIV, anxiety, depression, hx of hepatitis C, hx of lung abscess in 2020, and mild persistent asthma who presents to the ED with?left-sided thoracic chest pain and worsening weakness.? Patient originally presented to the ED 9 days prior on 12/21/2022 and was diagnosed with pneumonia and discharged on home antibiotics of cefuroxime and doxycycline.? Patient completed his course of antibiotics 2 days ago with little relief of his symptoms, and has since had continual sided chest pain, worse with inspiration and movement.? Patient denies cough, but has had shortness of breath and lightheadedness and dizziness.? States he has also been having decreased appetite with associated decreased intake of both fluids and solids. Pt notes he has also lost weight recently and been weaker than usual.? Patient denies night sweats. In the ED patient was afebrile but tachycardic up to 102 and tachypneic up to 23. Labs were significant for leukocytosis of 14.5, stable normocytic anemia of 13.0/39.3, lactic acid WNL in 0.9, negative troponin, CD4 count on 11/29/2022 of 377.? Patient tested negative for COVID. CT?of chest showed an interval decrease in the size of the bilobed lesion in the inferior segment of the lingula, with a low-attenuation center suggestive of cystic change or necrosis.? Also showed an increasing adjacent left lower lobe atelectasis/small infiltrate and in increasing small left pleural effusion. EKG demonstrated normal sinus rhythm without evidence of ST elevations or depressions. Pt was treated with tramadol, ketorolac, morphine, IVF, Zosyn. Pt will be admitted to the hospital for treatment and further evaluation of pneumonia that has failed outpatient therapy. Hopsital course: 57-year-old male with a PMH significant for?HIV, anxiety, depression, hx of hepatitis C, hx of lung abscess in 2020, and mild intermittent asthma admitted on 12/30 with PNA, and 01/03 went into acute respiratory failure and required intubation in ICU where he was noted to have? left sided larege loculated efusion -needed chest tubes - 01/05 he had chest tubes inserted by Dr. Anton, transfered out of ICU 01/07: received iv zosyn ,cultures are ngative thus, sputum sandy possible unlikley organism ( discussed with ID) patient completed 13 days of antibiotics, antibiotic removed as well as chest tube was also removed chest x-ray post chest tube removal seems fine. Moderate protein calorie malnutrition: Seen by Nutrition nutritional supplement added, also seen by speech and Swallow recommended chopped/advanced consistency for diet. Hypertension continue amlodipine 5 mg.propanolol is on hold due to bradycardia. For his HIV:Continue home Biktarvy. Patient is generalized weak seen by PT recommended rehab, patient will benefit from less than 30 day stay in rehab. Above management discussed with the patient in detail and he understand in agreement with the above plan, time spent 50 minute, follow-up outpatient with Infectious Disease an pcp. Plan: Patient completed the course of antibiotics Propranolol hold due to bradycardia Patient is to follow-up with Infectious Disease outpatient for his HIV. Patient was strongly advised for encourage p.o. intake as well as follow-up with speech and Swallow diet and outpatient speech and swallow follow-up. Above management discussed the patient will anti understand in agreement with the above plan, time spent 50 minute. Time Spent with Patient Time attestation: Total time managing care of this patient today ____ minutes. Discharge coordination time: Greater than 30 minutes Quality: Safe Use of Opioids Does Pt have an Active Cancer Diagnosis on the Problem List?: No Quality: Stroke Does the patient have a stroke diagnosis?: No Physical Exam Vital Signs: Vital Signs: Last Vital Signs Temp 97.7 F 01/15/23 11:56 Pulse 49 L 01/15/23 15:17 Resp 18 01/15/23 13:53 BP 125/70 01/15/23 15:17 Pulse Ox 97 01/15/23 15:17 O2 Del Method Room Air 01/15/23 13:53 O2 Flow Rate 2 01/11/23 08:00 FiO2 30 01/06/23 10:00 Oxygen Flow Rate 3 01/10/23 12:00 BMI result Body Mass Index 24.4 Appearance: Alert.? Oriented X3.?sob improving cvs: rrr, [id number] , no murmur res: air entry fair ,no rales or wheezing abd: no rebound or guarding ,nt, bs present. ext pulses present , no cyanosis . neuro: axo3 , nonfocal DS: Data Data Completed and Pending Completed studies during hospitalization [Text1]: Pending at discharge 01/05/23 15:22 Surgical [PTH] Routine Procedures Reposition Left Tibia with Internal Fixation Device, Open Approach (02/12/22) Labs on day of discharge: Laboratory Results - last 24 hr 01/15/23 15:15 COVID-19 (TAMMIE) Negative COVID-19 Clin Com See Note Imaging Chest x-ray: Radiologist's impression: ITS Impressions Chest CT 12/30/22 18:47 IMPRESSION: Interval decrease in size in the bilobed lesion in the inferior segment of the lingula. This has a low-attenuation center suggestive of cystic change or necrosis. There is increasing adjacent left lower lobe atelectasis/small infiltrate. There is an increasing small left pleural effusion. Interval decrease in size in nodule in the right lower lobe. Minimal right lower lobe atelectasis. Given change in short period of time infectious or inflammatory process is favored. Fleischner guidelines were followed. Chest X-Ray 01/03/23 18:17 IMPRESSION: Endotracheal tube tip approximately 3 cm above the ciro. New dense opacification overlying the left upper hemithorax with obscuration of both lung bases. In the acute setting from 12/30/2022, infectious etiology, mucus plugging, or infectious etiology would be favored. Clinical correlation would be helpful. Layering effusions would be difficult to exclude. Abdomen/Pelvis CT 01/03/23 21:12 IMPRESSION: Worsening left-sided pleural effusion with near total collapse of the left lung. New small right-sided pleural effusion with basilar atelectasis. Patchy groundglass airspace disease in the anterolateral right upper lobe is new from the prior study. Chest CT 01/03/23 21:12 IMPRESSION: Worsening left-sided pleural effusion with near total collapse of the left lung. New small right-sided pleural effusion with basilar atelectasis. Patchy groundglass airspace disease in the anterolateral right upper lobe is new from the prior study. Head CT 01/03/23 21:12 IMPRESSION: No acute intracranial hemorrhage or mass effect. Chest X-Ray 01/04/23 14:25 IMPRESSION: Tubes and catheters as described above. Line overlying the superior vena cava. No pneumothorax. Decreasing density in the right mid to lower lung most consistent with resolving fluid. Persistent significant opacities on the left Chest X-Ray 01/04/23 15:20 IMPRESSION: Weighted tip enteric tube terminates in the left upper quadrant, presumably within the stomach. Chest X-Ray 01/05/23 16:23 IMPRESSION: 1. Endotracheal tube tip 3 cm above the ciro. 2. Enteric catheter tip in stomach. 3. Right IJ catheter tip at caval atrial junction. 4. 2 left-sided chest tubes which are apically directed in place. 5. Significant decrease in the volume of the loculated left pleural effusion. 6. Improved aeration of the left lung. Chest X-Ray 01/07/23 07:35 IMPRESSION: 1. Interval extubation. 2. Persistent small left-sided pleural effusion. Abdomen X-Ray 01/07/23 13:57 IMPRESSION: * Increased amount of stool in the colon suggesting constipation. Please correlate with clinical presentation. * There is no evidence of bowel obstruction. * There is an enteric tube with its tip projecting over the gastric antrum. This may be advanced further for optimal positioning. * Small left pleural effusion. Chest X-Ray 01/08/23 10:37 IMPRESSION: Stable position of support line and tubes. Small left pleural effusion. No pneumothorax. Improved aeration of the left lung. Chest X-Ray 01/08/23 11:43 IMPRESSION: Stable pneumothorax in spite of left 2 chest tubes. Feeding tube, right jugular central catheter are stable. There is right basilar atelectasis and/or scarring or effusion. Chest X-Ray 01/09/23 09:10 IMPRESSION: Stable position of 2 left chest tubes and left pleural thickening or small effusion. No pneumothorax. Coarse lung markings bilaterally suggestive of pneumonia, left greater than right. Modified Barium Swallow 01/09/23 14:30 IMPRESSION: Unremarkable modified barium swallow examination. Chest X-Ray 01/10/23 11:29 IMPRESSION: Very small left pleural effusion without overt pneumothorax. Discharge Plan Discharge Anticipated Discharge Date/Time: 01/15/23 15:29 Patient Disposition: [facility] Discharge Diagnosis: empyema ,pneumonia Referrals: [facility] [Outside] - 1 Week Akira Lobo MD [Primary Care Provider] - 1 Week Discharge Medications: New docusate sodium [Colace] 100 mg capsule 100 mg PO DAILY Qty: 30 0RF polyethylene glycol 3350 [Miralax] 17 gram/dose powder 17 g PO DAILY PRN (Reason: constipation) Qty: 119 0RF Continued celecoxib 200 mg capsule 200 mg PO BID latanoprost 0.005 % drops 1 drp ophthalmic (eye) DAILY gabapentin 600 mg tablet 600 mg PO TID ibuprofen 800 mg tablet 800 mg PO Q8H PRN (Reason: pain) clonazepam 1 mg tablet 1 mg PO DAILY amlodipine 5 mg tablet 5 mg PO DAILY tramadol 50 mg tablet 50 mg PO DAILY PRN (Reason: Pain) risperidone 2 mg tablet 2 mg PO BEDTIME pantoprazole 40 mg tablet,delayed release (DR/EC) 40 mg PO DAILY@0630 mirtazapine 30 mg tablet 60 mg PO BEDTIME fluticasone propionate [Flovent HFA] 110 mcg/actuation HFA aerosol inhaler 1 puff INHALATION BID Biktarvy 50-200-25 mg tablet 1 tab PO DAILY Held propranolol 120 mg capsule,extended release 24 hr 120 mg PO DAILY Hold Instructions: Resume on 03/09/23. Discharge Orders: Discharge Order (Routine); Ordered 01/15/23 Ordered By: Soraida Amador Diet: Advance to usual diet Activity on Discharge: As tolerated Stand Alone Forms: Patient Portal Discharge page Care Plan Goals: 57-year-old male with a PMH significant for?HIV, anxiety, depression, hx of hepatitis C, hx of lung abscess in 2020, and mild intermittent asthma admitted on 12/30 with PNA, and 01/03 went into acute respiratory failure and required intubation in ICU where he was noted to have? left sided larege loculated efusion -needed chest tubes - 01/05 he had chest tubes inserted by Dr. Anton, transfered out of ICU 01/07: received iv zosyn ,cultures are ngative thus, sputum sandy possible unlikley organism ( discussed with ID) patient completed 13 days of antibiotics, antibiotic removed as well as chest tube was also removed chest x-ray post chest tube removal seems fine. Moderate protein calorie malnutrition: Seen by Nutrition nutritional supplement added, also seen by speech and Swallow recommended chopped/advanced consistency for diet. Hypertension continue amlodipine 5 mg.propanolol is on hold due to bradycardia. For his HIV:Continue home Biktarvy. Patient is generalized weak seen by PT recommended rehab, patient will benefit from less than 30 day stay in rehab. Above management discussed with the patient in detail and he understand in agreement with the above plan, time spent 50 minute, follow-up outpatient with Infectious Disease an pcp. Health Concerns: As above. Plan of Treatment: As above. Assessment: As above. Patient Instructions: Pleural Effusion (DC), Pneumonia (DC)
== END 2023-01-15 16:50 | disposition skilled nursing facility (03) | DRG 853 ==
LOC: HO.ED 21:15 → HO.EDOVER 22:57 → HO.S3 12-31 01:45 → HO.ICU 01-03 17:45 → HO.IMC 01-07 14:09
PROVIDERS: Internal Medicine; Internal Medicine Pulmonary Disease; Registered Nurse Community Health; Surgery; Admitting Provider Student in an Organized Health Care Education/Training Program; Emergency Provider Emergency Medicine; PCP Internal Medicine; Visit Provider Internal Medicine
PROC: 0B9L00Z Drainage of Left Lung with Drainage Device, Open Approach (ICD-10-PCS; 2023-01-05 12:30)
DX: A41.9 Sepsis, unspecified organism (principal); J85.1 Abscess of lung with pneumonia; J96.01 Acute respiratory failure with hypoxia; J91.8 Pleural effusion in other conditions classified elsewhere; E44.0 Moderate protein-calorie malnutrition; Z68.1 Body mass index [BMI] 19.9 or less, adult; R64 Cachexia; J98.11 Atelectasis; J45.20 Mild intermittent asthma, uncomplicated; G62.9 Polyneuropathy, unspecified; J98.4 Other disorders of lung; F41.9 Anxiety disorder, unspecified; F32.A Depression, unspecified; Z21 Asymptomatic human immunodeficiency virus [HIV] infection status; Z20.822 Contact with and (suspected) exposure to COVID-19; Z86.19 Personal history of other infectious and parasitic diseases; Z88.0 Allergy status to penicillin; Z88.5 Allergy status to narcotic agent; Z79.51 Long term (current) use of inhaled steroids; Z79.899 Other long term (current) drug therapy
CPT/HCPCS: 36415; 36600; 70450; 71045; 71250; 71260; 74018; 74176; 74230; 80048; 80053; 80076; 80202; 80307; 82040; 82565; 82803; 82947; 83605; 83735; 83880; 84100; 84484; 85014; 85018; 85025; 85027; 85610; 85730; 86850; 86900; 86901; 87040; 87070; 87077; 87205; 87635; 87640; 87641; 88305; 92526; 92610; 92611; 93005; 94003; 94640; 97110; 97116; 97162; 97163; 97530; 99285; C1758; J1170; J1200; J1650; J1885; J2250; J2270; J2370; J2543; J2795; J3010; J3370; J3371; P9047; Q9967

== ENCOUNTER 2023-01-22 08:08 | Emergency (ER) | payer OTHER, SELFPAY ==
--- NOTE | ~2023-01-22 | CT_ITS ---
EXAMINATION: CT CHEST WITHOUT CONTRAST CLINICAL INFORMATION: Chest pain. Empyema removal 01/09. COMPARISON: CT scans dating between January 03, 2023 and December 28, 2007. TECHNIQUE: Multidetector volumetric CT imaging of the chest was done. Axial MIP volume rendering provided. Sagittal and coronal reformatted images were obtained. This CT examination was performed using dose optimization techniques as appropriate, variously including the following: *Automated exposure control *Adjustment of mA and/or kV according to patient size (this includes techniques or standardized protocols for targeted exams where dose is matched to indication/reason for exam; i.e. extremities or head) *Use of iterative reconstruction technique DLP: 267 mGy-cm FINDINGS: LUNGS/PLEURA: Resolution of previously seen bilateral pleural effusions. Left pleural thickening posteriorly and somewhat laterally. Residual left basilar fibrotic changes and/or atelectasis. MEDIASTINUM: The mediastinum is normal. CORONARY ARTERY CALCIFICATION: None visualized on this study. Chest Wall/AXILLA: Soft tissue swelling overlying rib fracture deformities described below. No lymphadenopathy by size criteria. UPPER ABDOMEN: Punctate, nonobstructing bilateral renal collecting system stones. OSSEOUS STRUCTURES: Postsurgical changes at the posterior aspect of the left seventh rib, with the main (lateral) fragment displaced caudally one full bone shaft's width relative to the medial fragment. The fragments appear to overlie approximately 3 mm (image 65, coronal series 7). Associated surgical clips. Healing fracture at the posteromedial aspect of the left 9th rib near the costovertebral junction. Fracture at the posterolateral aspect of the left 10th rib (image 53, series 2). Question healing fracture at the posterolateral aspect of the left sixth rib (image 22, series 2). CT/CT chest wo IV con IMPRESSION: Multiple left rib fractures with associated soft tissue swelling, as detailed above. Resolution of bilateral pleural effusions seen on most recent prior chest CT dated January 03, 2023. Left pleural thickening posteriorly and somewhat laterally. Residual left basilar fibrotic changes and/or atelectasis. Midthoracic vertebral compression deformities appear unchanged compared with January 03, 2023. Additional findings, as above.
[2023-01-22 08:14] VITALS: BP 129/87; PULSE 89; RESP 14; TEMP 36.6; O2SAT 94; BMI 24.2
[2023-01-22 08:24] VITALS: BP 129/87; PULSE 84; RESP 22; TEMP 36.4; O2SAT 94
--- NOTE | 2023-01-22 08:38 | ED_ITS ---
HPI - General Adult General Chief complaint: General Medical Stated complaint: PAIN S/P BACK SURG ABOUT A WEEK AGO Time Seen by Provider: 01/22/23 08:12 Source: patient Mode of arrival: EMS History of Present Illness HPI narrative: 57-year-old male who presents via EMS in states that since his left lung surgery on 01/09 he has had significant chest pain that has prevented him from resting comfortably at night. He denies any fevers or chills and states he did not receive a follow-up appointment from Dr. Terry Related Data Home Medications Medication Instructions Recorded Confirmed amlodipine 5 mg tablet 5 mg PO DAILY 12/30/22 12/30/22 bictegravir 50 mg-emtricitabine 1 tab PO DAILY 12/30/22 12/30/22 200 mg-tenofovir alafenam 25 mg tablet (Biktarvy) celecoxib 200 mg capsule 200 mg PO BID 12/30/22 12/30/22 clonazepam 1 mg tablet 1 mg PO DAILY 12/30/22 12/30/22 fluticasone propionate 110 1 puff inhalation BID 12/30/22 12/30/22 mcg/actuation HFA aerosol inhaler (Flovent HFA) gabapentin 600 mg tablet 600 mg PO TID 12/30/22 12/30/22 latanoprost 0.005 % eye drops 1 drp ophthalmic (eye) DAILY 12/30/22 12/30/22 mirtazapine 30 mg tablet 60 mg PO BEDTIME 12/30/22 12/31/22 pantoprazole 40 mg tablet,delayed 40 mg PO DAILY@0630 12/30/22 12/31/22 release propranolol 120 mg capsule,24 120 mg PO DAILY 12/30/22 12/30/22 hr,extended release risperidone 2 mg tablet 2 mg PO BEDTIME 12/30/22 12/30/22 tramadol 50 mg tablet 50 mg PO DAILY PRN Pain 12/30/22 12/30/22 Previous Rx's Medication Instructions Recorded docusate sodium 100 mg capsule 100 mg PO DAILY #30 caps 01/15/23 (Colace) polyethylene glycol 3350 17 17 g PO DAILY PRN constipation 01/15/23 gram/dose oral powder (Miralax) #119 grams ketorolac 10 mg tablet 10 mg PO Q6H PRN pain 5 days #20 01/22/23 tabs morphine 15 mg immediate release 15 mg PO Q6H PRN severe 01/22/23 tablet breakthrough pain #5 tabs Allergies Allergy/AdvReac Type Severity Reaction Status Date / Time Seasonal Allergies Allergy Intermediate Eye Verified 12/20/22 07:44 Drainage codeine Allergy Mild RASH Verified 12/20/22 07:44 [From Tylenol-Codeine #3] levofloxacin [From Levaquin] Allergy Mild Rash Verified 12/20/22 07:44 metoclopramide [From Reglan] Allergy Mild Rash Verified 12/20/22 07:44 acetaminophen Allergy Unknown Unknown Verified 12/20/22 07:44 [Tylenol-Codeine #3] ibuprofen [From Motrin] Allergy Unknown Reflux Verified 12/20/22 07:44 Penicillins [PENICILLINS] Allergy Unknown Rash Verified 12/20/22 07:44 tramadol [From Ultram] AdvReac Mild Nausea and Verified 12/20/22 07:44 Vomiting Review of Systems Review of Systems: Pertinent positives and negatives as stated in HPI [facility] Past Medical History Source: nursing notes reviewed Medical History Asthma Closed fracture of leg Depression Hemorrhoids Hepatitis C HIV (human immunodeficiency virus infection) Hypertension Kidney stones Pleuritic chest pain Pneumonia Substance abuse Surgical History H/O hemorrhoidectomy Social History Social History Household Members: None Housing: Apartment Do you presently have visiting nurse or other home services: Yes ([employer]) Alcohol intake: never Patient Tobacco Use Status: Never used Tobacco Second Hand Smoke Exposure: No Advance Directives: Yes Advance Directives on File: Yes Advance Directives Date on File: 04/25/21 service: No Current occupational status: disabled Physical Exam ED Vital Signs: Vital Signs - 24 hr 01/22/23 08:14 01/22/23 08:24 01/22/23 09:40 Temperature 97.8 F 97.5 F Pulse Rate 89 84 77 Respiratory Rate 14 22 H 22 H Blood Pressure 129/87 129/87 129/80 Pulse Oximetry 94 94 96 Oxygen Delivery Method Room Air Room Air Room Air BMI result Body Mass Index 24.2 VITAL SIGNS: Reviewed. GENERAL: Frail, not well nutrition, in no acute distress. HEAD: Normocephalic/atraumatic EYES: PERRLA, EOMI LUNGS: Some decreased breath sounds on the left presumably secondary to surgery. Otherwise, No adventitious sounds or accessory muscle use, tachypnea. SpO2<94>; CHEST WALL: There is a typical thoracotomy incision that appears to be healing well with Steri-Strips in place, well approximated, no surrounding erythema or induration. CARDIOVASCULAR: Regular rate and rhythm without noted murmurs, ABDOMEN: Soft, non-tender, non-distended with bowel sounds. MUSCULOSKELETAL: No tenderness, deformities, or effusions noted on gross inspection. EXTREMITIES: No cyanosis, clubbing or edema. SKIN: Inspection of the skin reveals no rashe NEUROLOGIC: Alert and oriented x 3. Strength and sensation to light touch were grossly intact x 4. Medical Decision Making Medical Decision Making [facility] Narrative: 57-year-old male with history and clinical presentation not likely to be infectious in etiology, will obtain basic labs and CT of the chest. I suspect patient has not received adequate pain control, I will ensure that patient has follow-up for either thoracic surgery and/or primary care provider and evaluate whether not he is a candidate for short-term rehab. 0855: I discussed the case with thoracic PA (Dillon) who will arrange for patient have a follow-up appointment on 02/02 and states that patient should have gone home on either oxycodone or Vicodin. On closer evaluation appears tomas t patient had surgery done by Dr. Anton who has been contacted. I reviewed all investigations and my determination is at this patient suffered from inadequate pain control, Dr. Anton was very helpful and patient was instructed on follow-up appointments and also left here on to additional medications as well in incentive spirometer. Lab Data 01/22/23 08:58 01/22/23 09:05 Labs: Lab Results 01/22/23 01/22/23 01/22/23 Range/Units 08:58 09:05 09:05 WBC 5.1 (4.8-10.8) X10*3/uL RBC 3.78 L (4.60-5.80) X10*6/uL Hgb 10.7 L (14.0-18.0) g/dl Hct 34.1 L (42.0-52.0) % MCV 90.2 (80.0-98.0) fL MCH 28.3 (27.0-33.0) pg MCHC 31.4 (31.0-36.0) g/dl RDW 16.2 H (11.0-16.0) % Plt Count 429 H (160-400) X10*3/uL MPV 10.7 (9.4-12.4) fL Immature Gran % (Auto) 0.2 (0.0-0.4) % Neut % (Auto) 52.3 (45-73) % Lymph % (Auto) 33.3 (20-40) % [place] % (Auto) 10.8 (2-11) % Eos % (Auto) 2.2 (0-4) % Baso % (Auto) 1.2 (0-2) % Lymph # (Auto) 1.7 (1.2-4.9) X10*3/uL [place] # (Auto) 0.6 (0.1-1.2) X10*3/uL Eos # (Auto) 0.1 (0.0-0.4) X10*3/uL Baso # (Auto) 0.1 (0.0-0.2) X10*3/uL Abs Immat Gran (auto) 0.01 (0.00-0.03) X10*3/uL Absolute Neuts (auto) 2.7 (2.0-8.3) x10*3/uL Absolute Nucleated RBC 0.000 (0.0-0.012) X10*3/uL Nucleated RBC % (auto) 0.0 (0.0-0.2) /100WBC PT 12.4 (10.0-13.1) SEC INR 1.1 (0.9-1.1) Sodium 143 (135-145) mmol/L Potassium 4.6 D (3.3-5.1) mmol/L Chloride 106 (96-108) mmol/L Carbon Dioxide 27 (22-29) mmol/L Anion Gap 15 (12-20) BUN 9 (9-16) mg/dL Creatinine 0.88 (0.5-1.4) mg/dL Estim Creat Clear Calc 64.7 Estimated GFR > 60 Random Glucose 89 (60-115) mg/dL Calcium 9.3 (8.4-10.2) mg/dL Total Bilirubin 0.4 (0.0-1.0) mg/dL AST 14 (5-37) U/L ALT 16 (0-40) U/L Alkaline Phosphatase 109 (39-117) U/L Total Protein 6.7 (6.5-8.0) g/dL Albumin 3.7 (3.5-5.0) g/dL Discharge Plan Discharge Clinical Impression: Chest wall pain following surgery Patient Disposition: Home, Self-Care Instructions: How to Use an Incentive Spirometer (ED), Thoracic Pain (ED), Chest Wall Pain (ED) Additional Instructions: 1. Resume all home medications as prescribed. Use the incentive spirometer that you have been given. There are instructions that have been printed out for your use. 2. Call the office of your general surgeon today to set up an appointment for follow up, let them know that Dr. Anton will see you. 3. Please call your primary care provider. Return to the ER for any worsening of symptoms. Prescriptions: New ketorolac 10 mg tablet 10 mg PO Q6H PRN (Reason: pain) 5 Days Qty: 20 0RF Rx Instructions: Patient received Toradol in the emergency room. morphine 15 mg tablet 15 mg PO Q6H PRN (Reason: severe breakthrough pain) Qty: 5 0RF Rx Instructions: Partial Fill upon patient request. Held celecoxib 200 mg capsule 200 mg PO BID Hold Instructions: Resume on 01/29/23. Discontinued ibuprofen 800 mg tablet 800 mg PO Q8H PRN (Reason: pain) No Action latanoprost 0.005 % drops 1 drp ophthalmic (eye) DAILY gabapentin 600 mg tablet 600 mg PO TID clonazepam 1 mg tablet 1 mg PO DAILY amlodipine 5 mg tablet 5 mg PO DAILY tramadol 50 mg tablet 50 mg PO DAILY PRN (Reason: Pain) risperidone 2 mg tablet 2 mg PO BEDTIME pantoprazole 40 mg tablet,delayed release (DR/EC) 40 mg PO DAILY@0630 mirtazapine 30 mg tablet 60 mg PO BEDTIME propranolol 120 mg capsule,extended release 24 hr 120 mg PO DAILY Hold Instructions: Resume on 03/09/23. fluticasone propionate [Flovent HFA] 110 mcg/actuation HFA aerosol inhaler 1 puff INHALATION BID Biktarvy 50-200-25 mg tablet 1 tab PO DAILY docusate sodium [Colace] 100 mg capsule 100 mg PO DAILY Qty: 30 0RF polyethylene glycol 3350 [Miralax] 17 gram/dose powder 17 g PO DAILY PRN (Reason: constipation) Qty: 119 0RF Referrals: Fareed Anton MD [Physician] - 1 day
[2023-01-22 09:20] LABS: MANUAL DIFF FLAG NO
[2023-01-22 09:24] LABS: Basophils Absolute Auto 0.1 X10*3/uL (0.0-0.2); Basophils Percent Auto 1.2 % (0-2); Eosinophils Absolute Auto 0.1 X10*3/uL (0.0-0.4); Eosinophils Percent Auto 2.2 % (0-4); Hematocrit 34.1 % (42.0-52.0); Hemoglobin 10.7 g/dl (14.0-18.0); Imm Gran Abs Auto 0.01 X10*3/uL (0.00-0.03); Imm Gran Pct Auto 0.2 % (0.0-0.4); Lymphocytes Absolute Auto 1.7 X10*3/uL (1.2-4.9); Lymphocytes Percent Auto 33.3 % (20-40); Mean Corpuscular HGB Conc 31.4 g/dl (31.0-36.0); Mean Corpuscular Hemoglobin 28.3 pg (27.0-33.0); Mean Corpuscular Volume 90.2 fL (80.0-98.0); Mean Platelet Volume 10.7 fL (9.4-12.4); Monocytes Absolute Auto 0.6 X10*3/uL (0.1-1.2); Monocytes Percent Auto 10.8 % (2-11); Neutrophils Absolute Auto 2.7 x10*3/uL (2.0-8.3); Neutrophils Percent Auto 52.3 % (45-73); Platelet Count 429 X10*3/uL (160-400); Red Blood Count 3.78 X10*6/uL (4.60-5.80); Red Cell Distribution Width 16.2 % (11.0-16.0); White Blood Count 5.1 X10*3/uL (4.8-10.8)
[2023-01-22 09:26] LABS: Alanine Aminotransferase 16 U/L (0-40); Albumin Level 3.7 g/dL (3.5-5.0); Alkaline Phosphatase 109 U/L (39-117); Anion Gap 15 (12-20); Aspartate Amino Transferase 14 U/L (5-37); Bilirubin Total 0.4 mg/dL (0.0-1.0); Blood Urea Nitrogen 9 mg/dL (9-16); Calcium 9.3 mg/dL (8.4-10.2); Carbon Dioxide 27 mmol/L (22-29); Chloride 106 mmol/L (96-108); Creatinine Clr Calc Pharmacy 64.7; Estimated Glomerular Filt Rate > 60; Glucose Random 89 mg/dL (60-115); Potassium 4.6 mmol/L (3.3-5.1); Sodium 143 mmol/L (135-145); Total Protein 6.7 g/dL (6.5-8.0)
[2023-01-22 09:30] LABS: INTERNATIONAL NORM RATIO 1.1 (0.9-1.1); Prothrombin Time 12.4 SEC (10.0-13.1)
[2023-01-22 09:40] VITALS: BP 129/80; PULSE 77; RESP 22; O2SAT 96
[2023-01-22 10:00] VITALS: BP 133/79; PULSE 79; RESP 20; O2SAT 96
[2023-01-22] MEDS: Morphine Sulfate Immed Release 15 MG TABLET PO (10:37)
[2023-01-22] MEDS: Ketorolac Tromethamine 15 MG/ML VIAL IM (10:40)
== END 2023-01-22 11:11 | disposition home or self-care (01) ==
PROVIDERS: Emergency Provider Student in an Organized Health Care Education/Training Program
DX: R07.89 Other chest pain (principal); M54.50 Low back pain, unspecified; Z79.899 Other long term (current) drug therapy
CPT/HCPCS: 36415; 71250; 80053; 85025; 85610; 94010; 96372; 99284; J1885

== ENCOUNTER → 2023-01-23 09:56 | Outpatient (BNVA) | payer OTHER, SELFPAY | PROVIDERS: PCP Student in an Organized Health Care Education/Training Program; Referring Provider Internal Medicine; Visit Provider Surgery | DX: J86.9 Pyothorax without fistula (principal); B20 Human immunodeficiency virus [HIV] disease | CPT/HCPCS: 99212 ==

== ENCOUNTER 2023-02-12 04:10 | Inpatient (IN) | payer OTHER, SELFPAY ==
[2023-02-12] VITALS (12 sets, daily range): BP systolic 103–152; BP diastolic 69–89; PULSE 92–130; RESP 16–32; TEMP 36.7–38.4; O2SAT 94–99; BMI 20.7
--- NOTE | ~2023-02-12 | XR_ITS ---
EXAMINATION: XR CHEST CLINICAL INFORMATION: Difficulty breathing COMPARISON: 11/22/2022 TECHNIQUE: Frontal view of the chest was obtained. FINDINGS: Lung volumes are symmetric. There is suggestion of subtle patchy right basilar opacity. Linear atelectasis is present at the left lung base. No evidence of pneumothorax, significant pleural effusion, or pulmonary edema. The cardiomediastinal contour is unremarkable. No acute osseous findings are seen. XR/XR chest 1V IMPRESSION: Suggestion of subtle patchy right basilar opacity which could reflect developing consolidation in the proper clinical setting.
--- NOTE | ~2023-02-12 | CT_ITS ---
EXAMINATION: CT ANGIOGRAM OF THE CHEST WITH AND WITHOUT CONTRAST (CT PULMONARY ANGIOGRAM FOR PE) CLINICAL INFORMATION: Reason for Exam elevated d-dimer, cp, pna COMPARISON: 01/22/2023 TECHNIQUE: Prior to contrast administration, noncontrast localization images were obtained. Subsequently, multidetector volumetric imaging was performed from the thoracic inlet to below the diaphragms following the administration of 65 mL Omnipaque 350 intravenous contrast. No contrast reaction reported Sagittal, coronal, and MIP oblique sagittal reformatted images were obtained on the CT workstation, uploaded to PACS, and reviewed. This CT examination was performed using dose optimization techniques as appropriate, variously including the following: *Automated exposure control *Adjustment of mA and/or kV according to patient size (this includes techniques or standardized protocols for targeted exams where dose is matched to indication/reason for exam; i.e. extremities or head) *Use of iterative reconstruction technique Total exam dose-length product 296 mGy-cm FINDINGS: QUALITY OF STUDY/CONTRAST BOLUS: Satisfactory. PULMONARY ARTERIES: No pulmonary emboli. THORACIC AORTA: No aneurysm. LUNG: Multifocal consolidation involving the right upper lobe, lingula and bilateral lower lobes. No suspicious pulmonary nodule. Central airways are patent. PLEURA: No significant pleural effusion or pneumothorax. MEDIASTINUM: Normal heart size. Small pericardial effusion. No hilar or mediastinal lymphadenopathy. No evidence of septal bowing or right heart strain. CORONARY ARTERY CALCIFICATION: Mild. CHEST WALL/AXILLA: No axillary or internal mammary lymphadenopathy. OSSEOUS STRUCTURES: Left sixth through tenth rib fractures of varying acuity. Stable mid to lower thoracic vertebral compression deformities. Surgical clips in the left posterior chest wall/posterior pleural space. UPPER ABDOMEN: Thickening of bilateral adrenal glands, left greater than right. 2 mm nonobstructing calculus midpole left kidney. No reflux of contrast into the hepatic veins to suggest elevated right heart pressures. CT/CT angio chest PE protocol IMPRESSION: Multifocal pneumonia. Follow-up until resolution is advised. No pulmonary embolus. Small pericardial effusion. Bilateral adrenal hyperplasia. 2 mm nonobstructing left renal calculus.
--- NOTE | 2023-02-12 04:21 | ECG_ITS ---
Test Reason : chest pain Blood Pressure : / mmHG Vent. Rate : 130 BPM Atrial Rate : 130 BPM P-R Int : 144 ms QRS Dur : 098 ms QT Int : 310 ms P-R-T Axes : 080 075 064 degrees QTc Int : 456 ms Sinus tachycardia Incomplete right bundle branch block Nonspecific T wave changes Abnormal ECG When compared with ECG of 03-JAN-2023 22:13, Vent. rate has increased BY 58 BPM T wave inversion more evident in Inferior leads T wave inversion no longer evident in Anterior leads Referred By: Generic ED Physician Electronically Signed By:Daniel Keller
[2023-02-12 05:08] LABS: Basophils Percent Auto 0.2 % (0-2); Eosinophils Percent Auto 0.3 % (0-4); Hematocrit 39.3 % (42.0-52.0); Hemoglobin 12.5 g/dl (14.0-18.0); Imm Gran Abs Auto 0.03 X10*3/uL (0.00-0.03); Imm Gran Pct Auto 0.2 % (0.0-0.4); Lymphocytes Absolute Auto 0.7 X10*3/uL (1.2-4.9); Lymphocytes Percent Auto 5.2 % (20-40); Mean Corpuscular HGB Conc 31.8 g/dl (31.0-36.0); Mean Corpuscular Hemoglobin 28.3 pg (27.0-33.0); Mean Corpuscular Volume 89.1 fL (80.0-98.0); Mean Platelet Volume 10.8 fL (9.4-12.4); Monocytes Absolute Auto 0.8 X10*3/uL (0.1-1.2); Monocytes Percent Auto 5.6 % (2-11); Neutrophils Absolute Auto 12.2 x10*3/uL (2.0-8.3); Neutrophils Percent Auto 88.5 % (45-73); Platelet Count 243 X10*3/uL (160-400); Red Blood Count 4.41 X10*6/uL (4.60-5.80); Red Cell Distribution Width 15.6 % (11.0-16.0); White Blood Count 13.8 X10*3/uL (4.8-10.8)
[2023-02-12 05:09] LABS: MANUAL DIFF FLAG NO
[2023-02-12 05:17] LABS: D Dimer High Sensitivity 298 NG/ML
[2023-02-12 05:24] LABS: Anion Gap 15 (12-20); Blood Urea Nitrogen 12 mg/dL (9-16); Calcium 9.6 mg/dL (8.4-10.2); Carbon Dioxide 26 mmol/L (22-29); Chloride 105 mmol/L (96-108); Creatinine Clr Calc Pharmacy 78.7; Estimated Glomerular Filt Rate > 60; Glucose Random 121 mg/dL (60-115); Potassium 3.7 mmol/L (3.3-5.1); Sodium 142 mmol/L (135-145)
[2023-02-12 05:29] LABS: Troponin-I High Sensitivity < 2.7 ng/L (<3.5-35.0)
--- NOTE | 2023-02-12 05:56 | PC.NURSE ---
Patient in bed with eyes open patient vitalsa r
--- NOTE | 2023-02-12 05:57 | PC.NURSE ---
patient in bed with eyes open patient stated he is having pain on the left side patient stated his throat is sore patient vitals are being monitored patient is awaiting to be seen by the doctor patient states he does not drink or smoke patient has multiple allergies that are located in the chart patient stated his pain is a 10 patient is pending a doctor to see patient safety will continue to be maintained patient had all labs to be drawn results are pending
--- NOTE | 2023-02-12 07:17 | ED_ITS ---
HPI - URI/Sore Throat General Chief Complaint: Upper Respiratory Symptoms Stated Complaint: Pleuritic chest pain Time Seen by Provider: 02/12/23 06:32 Source: patient, EMS, RN notes reviewed and old records reviewed Mode of arrival: EMS History of Present Illness HPI Narrative: 57-year-old male with a past medical history of HIV, anxiety, depression, hepatitis-C, lung abscess in , asthma, empyema s/p empyemectomy 01/05/23, discharge from our facility on 01/15 s/p acute respiratory failure, presenting to the ED complaining of nonproductive cough, left-sided chest discomfort, generalized fatigue since yesterday. Per triage patient was initially satting 90% on room air, denies being on chronic O2. Denies known fever, chills, SOB, Anselmo, nausea/vomiting, pedal edema MD elicited complaint: cough Related Data Home Medications Medication Instructions Recorded Confirmed amlodipine 5 mg tablet 5 mg PO DAILY 12/30/22 02/12/23 bictegravir 50 mg-emtricitabine 1 tab PO DAILY 12/30/22 02/12/23 200 mg-tenofovir alafenam 25 mg tablet (Biktarvy) celecoxib 200 mg capsule 200 mg PO BID 12/30/22 02/12/23 clonazepam 1 mg tablet 1 mg PO DAILY 12/30/22 02/12/23 fluticasone propionate 110 1 puff inhalation BID 12/30/22 02/12/23 mcg/actuation HFA aerosol inhaler (Flovent HFA) gabapentin 600 mg tablet 600 mg PO TID 12/30/22 02/12/23 latanoprost 0.005 % eye drops 1 drp ophthalmic (eye) DAILY 12/30/22 02/12/23 mirtazapine 30 mg tablet 60 mg PO BEDTIME 12/30/22 02/12/23 propranolol 120 mg capsule,24 120 mg PO DAILY 12/30/22 02/12/23 hr,extended release risperidone 2 mg tablet 2 mg PO BEDTIME 12/30/22 02/12/23 tramadol 50 mg tablet 50 mg PO DAILY PRN Pain 12/30/22 02/12/23 albuterol sulfate 90 mcg/actuation 2 puff inhalation Q6H PRN wheezing 02/12/23 02/12/23 aerosol inhaler ascorbic acid (vitamin C) 250 mg 250 mg PO QAM 02/12/23 02/12/23 tablet diphenhydramine HCl 25 mg tablet 50 mg PO BEDTIME PRN Sleep 02/12/23 02/12/23 (Banophen) ferrous gluconate 324 mg (38 mg 324 mg PO QAM 02/12/23 02/12/23 iron) tablet fluticasone propionate 115 2 puff inhalation BID 02/12/23 02/12/23 mcg-salmeterol 21 mcg/actuation HFA inhaler ibuprofen 800 mg tablet 800 mg PO Q8H PRN pain 02/12/23 02/12/23 Allergies Allergy/AdvReac Type Severity Reaction Status Date / Time Seasonal Allergies Allergy Intermediate Eye Verified 01/23/23 10:03 Drainage codeine Allergy Mild RASH Verified 01/23/23 10:03 [From Tylenol-Codeine #3] levofloxacin [From Levaquin] Allergy Mild Rash Verified 01/23/23 10:03 metoclopramide [From Reglan] Allergy Mild Rash Verified 01/23/23 10:03 acetaminophen Allergy Unknown Unknown Verified 01/23/23 10:03 [Tylenol-Codeine #3] ibuprofen [From Motrin] Allergy Unknown Reflux Verified 01/23/23 10:03 Penicillins [PENICILLINS] Allergy Unknown Rash Verified 01/23/23 10:03 tramadol [From Ultram] AdvReac Mild Nausea and Verified 01/23/23 10:03 Vomiting Review of Systems Review of Systems: Constitutional: No Fever, No Chills, + Fatigue, No Malaise ENT/Mouth: No Hearing loss, No Ear Pain, No Nasal Congestion, No sore throat, No Rhinorrhea, No Swallowing Difficulty Eyes: No Eye Pain, No Swelling, No Vision Changes Cardiovascular: + Chest Pain, No SOB, No Dyspnea on Exertion, No Orthopnea, No Edema, No Palpitations Respiratory: + Cough, No Sputum, No Wheezing, No Dyspnea Gastrointestinal: No Nausea, No Vomiting, No Diarrhea, No Constipation, No Abdominal pain Genitourinary: No Dysuria, No Urinary Frequency, No Flank Pain Musculoskeletal: No joint pain, No Myalgias, No Joint Swelling Skin: No Skin Lesions, No rash Neuro: No Weakness, No Numbness, No Dizziness, No Headache Yes all other systems are reviewed and are negative Constitutional: Constitutional: Reports as per [facility] Past Medical History Attestation statement: The following information was validated with the patient. 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) Alcohol intake: never Patient Tobacco Use Status: Never used Tobacco Smoked in Last 30 Days: No Second Hand Smoke Exposure: No Use of substances other than those prescribed or required for medical reasons: No Advance Directives: Yes Advance Directives on File: Yes Advance Directives Date on File: 04/25/21 Nutrition Risks: Emaciation/Cachexia service: No Current occupational status: disabled Physical Exam Vital Signs: Vital Signs: Last Vital Signs Temp 98.0 F 02/12/23 15:15 Pulse 97 02/12/23 15:15 Resp 16 02/12/23 15:15 BP 131/83 02/12/23 15:15 Pulse Ox 97 02/12/23 15:15 O2 Del Method Nasal Cannula 02/12/23 15:15 O2 Flow Rate 2 02/12/23 15:15 Oxygen Flow Rate 2 02/12/23 05:46 BMI result Body Mass Index 20.7 Const: Other: clammy General: cooperative, alert, awake and ill appearing Orientation/consciousness: patient oriented x3 Limitations: no limitations HEENT: Head: Yes normal to inspection and Yes atraumatic Ears: hearing grossly normal bilaterally General nose exam: Normal external nose present Face and sinus: Yes normal facial exam Mouth: mucous membranes dry Eyes: General: appearance normal, both eyes and all related structures EOM: EOMs intact bilaterally Neck: Neck: Yes normal visual inspection and Yes no meningeal signs Chest: Other: old surgical/chest tube site noted to left anterior lateral ribs, tender to palpation, no crepitus, erythema or ecchymosis Resp: Effort & Inspection: labored, no respiratory distress and tachypneic Auscultation: crackles bilateral in the lower lung bonilla and diminished lung sounds bilateral in the lower lung bonilla Cardio: Rate: regular rate Heart sounds: S1 normal heart sound present and S2 normal heart sound present GI: Inspection: Yes normal to inspection Palpation (GI): Soft to palpation, nontender, no guarding and not rigid : General: Yes no CVA tenderness Back/Spine/Pelvis: Back: no CVA tenderness Skin: Rashes: no rashes Wounds: no wounds Neuro: General: patient oriented x3, tone normal and no meningeal signs Gait exam (Neuro): Normal gait present Extrem: General: Yes normal to inspection, Yes no pedal edema and Yes no calf tenderness Course Course Course Narrative: --leukocytosis of 13.8. H/H at patient's baseline. D-dimer mildly elevated to 298 > will obtain CTA to rule out PE -troponin negative XR chest 1V IMPRESSION: Suggestion of subtle patchy right basilar opacity which could reflect developing consolidation in the proper clinical setting. > lactic/blood cultures and empiric IV Cefepime ordered 1114--CT angio chest PE protocol IMPRESSION: Multifocal pneumonia. Follow-up until resolution is advised. No pulmonary embolus. Small pericardial effusion. Bilateral adrenal hyperplasia. 2 mm nonobstructing left renal calculus. ? > plan to admit for further management Medications Administered Generic Name Dose Route Start Last Admin Trade Name Freq PRN Reason Stop Dose Admin Ascorbic Acid 250 mg 02/12/23 11:45 02/12/23 12:59 Ascorbic Acid 250 Mg Tablet PO 250 mg DAILY MICHAEL Administration Enoxaparin Sodium 40 mg 02/12/23 11:45 02/12/23 12:59 Enoxaparin Sodium 40 Mg/0.4 Ml Syringe SUBCUT 40 mg Q24H MICHAEL Administration Ferrous Sulfate 324 mg 02/12/23 12:06 02/12/23 13:00 Ferrous Sulfate 324 Mg Tablet.Dr PO Not Given DAILY MICHAEL Gabapentin 600 mg 02/12/23 15:00 02/12/23 15:07 Gabapentin 600 Mg Tablet PO 600 mg TID MICHAEL Administration Lidocaine 1 patch 02/12/23 13:30 02/12/23 15:07 Lidocaine 4 % Patch Adh..Patch TRANSDERMA 1 patch DAILY MICHAEL Administration Protocol Discontinued Medications Generic Name Dose Route Start Last Admin Trade Name Freq PRN Reason Stop Dose Admin Cefepime HCl 2 gm/ Sodium 50 mls @ 100 mls/hr 02/12/23 06:48 02/12/23 07:48 Chloride IV 02/12/23 07:17 100 mls/hr ONCE ONE Administration Sodium Chloride 1,000 mls @ 999 mls/hr 02/12/23 07:30 02/12/23 07:49 Ns IV 02/12/23 08:30 999 mls/hr .Q1H1M MICHAEL Administration Sodium Chloride 1,000 mls @ 999 mls/hr 02/12/23 09:00 02/12/23 10:01 Ns IV 02/12/23 10:00 999 mls/hr .Q1H1M MICHAEL Administration Vancomycin HCl 1,500 mg/ 500 mls @ 333.333 mls/hr 02/12/23 11:21 02/12/23 13:14 Sodium Chloride IV 02/12/23 12:50 Not Given ONCE ONE Vancomycin HCl 1,500 mg/ 500 mls @ 333.333 mls/hr 02/12/23 12:30 02/12/23 12:32 Sodium Chloride IV 02/12/23 13:59 333.33 mls/hr ONCE ONE Administration Iohexol 65 ml 02/12/23 08:41 02/12/23 08:41 Iohexol 350 Mg/Ml 100 Ml Infus..Btl IV 02/12/23 08:42 65 ml ONCE ONE Administration Ketorolac Tromethamine 15 mg 02/12/23 08:10 02/12/23 08:52 Ketorolac Tromethamine 15 Mg/Ml Vial IVPUSH 02/12/23 08:11 15 mg ONCE ONE Administration Ketorolac Tromethamine 15 mg 02/12/23 09:28 02/12/23 11:14 Ketorolac Tromethamine 15 Mg/Ml Vial IVPUSH 02/12/23 09:29 15 mg ONCE ONE Administration Morphine Sulfate 15 mg 02/12/23 07:36 02/12/23 07:48 Morphine Sulfate Immed Release 15 Mg Tablet PO 02/12/23 07:37 15 mg ONCE ONE Administration Morphine Sulfate 2 mg 02/12/23 13:16 02/12/23 15:07 Morphine Sulfate 2 Mg/Ml Cartridge IVPUSH 02/12/23 13:17 2 mg ONCE ONE Administration Protocol Medical Decision Making Medical Decision Making MDM Narrative: 57-year-old male with a past medical history of HIV, anxiety, depression, hepatitis-C, lung abscess in '21, asthma, empyema s/p empyemectomy 01/05/23, d ischarge from our facility on 01/15 s/p acute respiratory failure, presenting to the ED complaining of nonproductive cough, left-sided chest discomfort, generalized fatigue since yesterday. On exam tachycardic & tachypneic pain likely contributor, clammy, reproducible chest wall tenderness noted, diminished lung sounds bibasilarly with crackles. No pitting edema. Concern for pneumonia vs PE vs continued postoperative pain. Lower suspicion for CHF, ACS, rib fracture or dissection Low suspicion for severe sepsis at this time as vital sign abnormalities likely related to pain Plan: EKG, labs, lactic/blood cultures, CXR, empiric IV antibiotics Please refer to course for remaining clinical decision making, interpretation of labs/imaging results, and discussions with consultants and/or family members. Differential Diagnosis Differential Diagnoses: The differential diagnosis associated with the presentation includes As above Admission/Observation Consideration of admission/observation: Escalation of care including admission/observation considered Consult Healthcare Provider Management of the patient was discussed with: Hospitalist and Customer Service Correspondence Clerk Lab Data [facility] Lab Attestation statement: I reviewed the patient's lab results. 02/12/23 05:02 02/12/23 05:02 Labs: Lab Results 02/12/23 02/12/23 02/12/23 Range/Units 05:02 05:02 05:02 WBC 13.8 H (4.8-10.8) X10*3/uL RBC 4.41 L (4.60-5.80) X10*6/uL Hgb 12.5 L (14.0-18.0) g/dl Hct 39.3 L (42.0-52.0) % MCV 89.1 (80.0-98.0) fL MCH 28.3 (27.0-33.0) pg MCHC 31.8 (31.0-36.0) g/dl RDW 15.6 (11.0-16.0) % Plt Count 243 D (160-400) X10*3/uL MPV 10.8 (9.4-12.4) fL Immature Gran % (Auto) 0.2 (0.0-0.4) % Neut % (Auto) 88.5 H (45-73) % Lymph % (Auto) 5.2 L (20-40) % [place] % (Auto) 5.6 (2-11) % Eos % (Auto) 0.3 (0-4) % Baso % (Auto) 0.2 (0-2) % Lymph # (Auto) 0.7 L (1.2-4.9) X10*3/uL [place] # (Auto) 0.8 (0.1-1.2) X10*3/uL Eos # (Auto) 0.0 (0.0-0.4) X10*3/uL Baso # (Auto) 0.0 (0.0-0.2) X10*3/uL Abs Immat Gran (auto) 0.03 (0.00-0.03) X10*3/uL Absolute Neuts (auto) 12.2 H (2.0-8.3) x10*3/uL Absolute Nucleated RBC 0.000 (0.0-0.012) X10*3/uL Nucleated RBC % (auto) 0.0 (0.0-0.2) /100WBC PT 12.6 (10.0-13.1) SEC INR 1.1 (0.9-1.1) D-Dimer High Sensitivty 298 NG/ML Sodium 142 (135-145) mmol/L Potassium 3.7 (3.3-5.1) mmol/L Chloride 105 (96-108) mmol/L Carbon Dioxide 26 (22-29) mmol/L Anion Gap 15 (12-20) BUN 12 (9-16) mg/dL Creatinine 0.84 (0.5-1.4) mg/dL Estim Creat Clear Calc 78.7 Estimated GFR > 60 Random Glucose 121 H (60-115) mg/dL Lactic Acid (0.5-2.0) mmol/L Calcium 9.6 (8.4-10.2) mg/dL Magnesium 1.9 (1.6-2.6) mg/dL Total Bilirubin 0.7 (0.0-1.0) mg/dL Direct Bilirubin 0.2 (0.0-0.5) mg/dL AST 12 (5-37) U/L ALT 13 (0-40) U/L Alkaline Phosphatase 88 (39-117) U/L Troponin I High Sens (<3.5-35.0) ng/L B-Natriuretic Peptide (<100) pg/mL Total Protein 7.8 (6.5-8.0) g/dL Albumin 4.2 (3.5-5.0) g/dL Procalcitonin 0.04 ng/mL Urine Color Urine Appearance Urine pH (5.0-9.0) Ur Specific [place] (1.005-1.025) Urine Protein (Neg-Trace) mg/dL Urine Glucose (UA) (Negative) mg/dL Urine Ketones (Negative) mg/dL Urine Blood (Negative) Urine Nitrite (Negative) Ur Leukocyte Esterase (Negative) Influenza Type A (PCR) (Negative) Influenza Type B (PCR) (Negative) RSV RNA Qual (PCR) (Negative) SARS-CoV-2 RNA (RT-PCR) (Negative) 02/12/23 02/12/23 02/12/23 Range/Units 05:02 05:02 07:41 WBC (4.8-10.8) X10*3/uL RBC (4.60-5.80) X10*6/uL Hgb (14.0-18.0) g/dl Hct (42.0-52.0) % MCV (80.0-98.0) fL MCH (27.0-33.0) pg MCHC (31.0-36.0) g/dl RDW (11.0-16.0) % Plt Count (160-400) X10*3/uL MPV (9.4-12.4) fL Immature Gran % (Auto) (0.0-0.4) % Neut % (Auto) (45-73) % Lymph % (Auto) (20-40) % [place] % (Auto) (2-11) % Eos % (Auto) (0-4) % Baso % (Auto) (0-2) % Lymph # (Auto) (1.2-4.9) X10*3/uL [place] # (Auto) (0.1-1.2) X10*3/uL Eos # (Auto) (0.0-0.4) X10*3/uL Baso # (Auto) (0.0-0.2) X10*3/uL Abs Immat Gran (auto) (0.00-0.03) X10*3/uL Absolute Neuts (auto) (2.0-8.3) x10*3/uL Absolute Nucleated RBC (0.0-0.012) X10*3/uL Nucleated RBC % (auto) (0.0-0.2) /100WBC PT (10.0-13.1) SEC INR (0.9-1.1) D-Dimer High Sensitivty NG/ML Sodium (135-145) mmol/L Potassium (3.3-5.1) mmol/L Chloride (96-108) mmol/L Carbon Dioxide (22-29) mmol/L Anion Gap (12-20) BUN (9-16) mg/dL Creatinine (0.5-1.4) mg/dL Estim Creat Clear Calc Estimated GFR Random Glucose (60-115) mg/dL Lactic Acid 1.2 (0.5-2.0) mmol/L Calcium (8.4-10.2) mg/dL Magnesium (1.6-2.6) mg/dL Total Bilirubin (0.0-1.0) mg/dL Direct Bilirubin (0.0-0.5) mg/dL AST (5-37) U/L ALT (0-40) U/L Alkaline Phosphatase (39-117) U/L Troponin I High Sens < 2.7 D (<3.5-35.0) ng/L B-Natriuretic Peptide 12 (<100) pg/mL Total Protein (6.5-8.0) g/dL Albumin (3.5-5.0) g/dL Procalcitonin ng/mL Urine Color Urine Appearance Urine pH (5.0-9.0) Ur Specific [place] (1.005-1.025) Urine Protein (Neg-Trace) mg/dL Urine Glucose (UA) (Negative) mg/dL Urine Ketones (Negative) mg/dL Urine Blood (Negative) Urine Nitrite (Negative) Ur Leukocyte Esterase (Negative) Influenza Type A (PCR) (Negative) Influenza Type B (PCR) (Negative) RSV RNA Qual (PCR) (Negative) SARS-CoV-2 RNA (RT-PCR) (Negative) 02/12/23 02/12/23 Range/Units 07:44 07:44 WBC (4.8-10.8) X10*3/uL RBC (4.60-5.80) X10*6/uL Hgb (14.0-18.0) g/dl Hct (42.0-52.0) % MCV (80.0-98.0) fL MCH (27.0-33.0) pg MCHC (31.0-36.0) g/dl RDW (11.0-16.0) % Plt Count (160-400) X10*3/uL MPV (9.4-12.4) fL Immature Gran % (Auto) (0.0-0.4) % Neut % (Auto) (45-73) % Lymph % (Auto) (20-40) % [place] % (Auto) (2-11) % Eos % (Auto) (0-4) % Baso % (Auto) (0-2) % Lymph # (Auto) (1.2-4.9) X10*3/uL [place] # (Auto) (0.1-1.2) X10*3/uL Eos # (Auto) (0.0-0.4) X10*3/uL Baso # (Auto) (0.0-0.2) X10*3/uL Abs Immat Gran (auto) (0.00-0.03) X10*3/uL Absolute Neuts (auto) (2.0-8.3) x10*3/uL Absolute Nucleated RBC (0.0-0.012) X10*3/uL Nucleated RBC % (auto) (0.0-0.2) /100WBC PT (10.0-13.1) SEC INR (0.9-1.1) D-Dimer High Sensitivty NG/ML Sodium (135-145) mmol/L Potassium (3.3-5.1) mmol/L Chloride (96-108) mmol/L Carbon Dioxide (22-29) mmol/L Anion Gap (12-20) BUN (9-16) mg/dL Creatinine (0.5-1.4) mg/dL Estim Creat Clear Calc Estimated GFR Random Glucose (60-115) mg/dL Lactic Acid (0.5-2.0) mmol/L Calcium (8.4-10.2) mg/dL Magnesium (1.6-2.6) mg/dL Total Bilirubin (0.0-1.0) mg/dL Direct Bilirubin (0.0-0.5) mg/dL AST (5-37) U/L ALT (0-40) U/L Alkaline Phosphatase (39-117) U/L Troponin I High Sens (<3.5-35.0) ng/L B-Natriuretic Peptide (<100) pg/mL Total Protein (6.5-8.0) g/dL Albumin (3.5-5.0) g/dL Procalcitonin ng/mL Urine Color Yellow Urine Appearance Hazy Urine pH 8.5 (5.0-9.0) Ur Specific [place] 1.015 (1.005-1.025) Urine Protein Negative (Neg-Trace) mg/dL Urine Glucose (UA) Negative (Negative) mg/dL Urine Ketones Negative (Negative) mg/dL Urine Blood Negative (Negative) Urine Nitrite Negative (Negative) Ur Leukocyte Esterase Negative (Negative) Influenza Type A (PCR) NEGATIVE (Negative) Influenza Type B (PCR) NEGATIVE (Negative) RSV RNA Qual (PCR) NEGATIVE (Negative) SARS-CoV-2 RNA (RT-PCR) NEGATIVE (Negative) Independent Interpretation I performed an independent interpretation of an: EKG (sinus tachycardia at a rate of 130. MS interval 144. QTC 456. T-wave inversion in inferior leads, no longer evident in anterior leads. No STEMI ) Radiology Impression Discussion of test interpretation with radiology: I have reviewed the radiologist's reading. Independent Historian Clinical information obtained from an independent historian. History obtained from or confirmed by: EMS External Record Review External record reviewed: Inpatient record, Office record, Outpatient record, Prior outpatient labs, Prior outpatient radiology, Primary care record and Outside ED record Tests considered The following testing was considered but not selected: As above Prescription Management I considered prescription management with: Pain Medication and Antibiotic Chronic Conditions Patient?s care impacted by: Other Social Determinants Patient?s care significantly limited by Social Determinants of Health including: Other Social Determinant of Health Critical Care Time Critical Care Time Critical Care Time: Yes Total Critical Care Time: 45 Attestation: I have personally provided critical care time exclusive of time spent on s eparately billable procedures. Time includes review of lab data, radiology results, discussion with consultants, and monitoring for potential decompensation. Intervention performed as documented. Discharge Plan Discharge Clinical Impression: Multifocal pneumonia Patient Disposition: Admitted As Inpatient
[2023-02-12 07:45] LABS: INTERNATIONAL NORM RATIO 1.1 (0.9-1.1); Prothrombin Time 12.6 SEC (10.0-13.1)
[2023-02-12] MEDS: cefEPime HCl 2 GM in 0.9 % Sodium Chloride 50 ML IV (07:48)
[2023-02-12] MEDS: Morphine Sulfate Immed Release 15 MG TABLET PO (07:48)
[2023-02-12] MEDS: 0.9 % Sodium Chloride 1,000 ML 999 ML IV ×2 (07:49→10:01)
--- NOTE | 2023-02-12 07:54 | PC.NURSE ---
pt received in bed, moaning, able to speak in short sentences. Pt warm, moves slowly. In pain, states I have pneumonia . VS as charted, patient meets SIRS criteria. Blood cultures drawn, lactate drawn, new IV started to left hand. Abx in process, IVF in process per order. Patient medicated for pain, awaiting result. Will continue to monitor.
[2023-02-12 07:59] LABS: Appearance Urine Hazy; Color Urine Yellow; Glucose Urine UA Negative (Negative); Leukocyte Esterase Urine Negative (Negative); Nitrite Urine Negative (Negative); PH 8.5 (5.0-9.0); Specific Gravity - Urine 1.015 (1.005-1.025); Urine Blood Negative (Negative); Urine Ketones Negative (Negative); Urine Protein Negative (Neg-Trace)
[2023-02-12 08:05] LABS: Lactic Acid 1.2 mmol/L (0.5-2.0)
[2023-02-12 08:12] LABS: Alanine Aminotransferase 13 U/L (0-40); Albumin Level 4.2 g/dL (3.5-5.0); Alkaline Phosphatase 88 U/L (39-117); Aspartate Amino Transferase 12 U/L (5-37); Bilirubin Direct 0.2 mg/dL (0.0-0.5); Bilirubin Total 0.7 mg/dL (0.0-1.0); Magnesium 1.9 mg/dL (1.6-2.6); Total Protein 7.8 g/dL (6.5-8.0)
--- NOTE | 2023-02-12 08:24 | PC.NURSE ---
pt verbalizes pain relief. awaiting bed assignment
[2023-02-12 08:29] LABS: Influenza A PCR NEGATIVE (Negative); Influenza B PCR NEGATIVE (Negative); Resp Syncy Virus RNA Qual PCR NEGATIVE (Negative); SARS COV2 PCR INHOUSE NEGATIVE (Negative)
[2023-02-12] MEDS: iohexoL 350 MG/ML 100 ML INFUS..BTL 65 ML IV (08:41)
[2023-02-12] MEDS: Ketorolac Tromethamine 15 MG/ML VIAL IVPUSH ×2 (08:52→11:14)
--- NOTE | 2023-02-12 11:04 | PHA.MEDREC ---
Pharmacy Consult ? Medication Reconciliation Pharmacy has completed the medication reconciliation. spoke with patient. He seemed unsure on some of his medications. Called his sister for more information but she does not know what he takes nor the contact information for his visiting nurse. Used claim history.
--- NOTE | 2023-02-12 11:07 | PC.NURSE ---
report to STEPHANIE Knox
[2023-02-12 11:39] LABS: B Type Natriuretic Peptide 12 pg/mL (<100)
--- NOTE | 2023-02-12 11:49 | P.HPHOSP_ITS ---
History of Present Illness Date of Service: 02/12/23 Attending physician on admission: Soraida Amador Chief Complaint: sob, cough 57 year old male with history of HIV compliant with biktarvy, htn, hx substance abuse, moderate persistent asthma, hx hepatitis C presented to the ED for evalu ation 1 day sob, nonproductive cough, subjective fevers/chills, pleuritic chest pain, and weakness. He was recently discharged on 01/15 after being treated for multifocal pneumonia with acute hypoxemic respiratory failure requiring intubation in ICU and was noted to have large empyema with chest tube placed by general surgery. He completed outpatinet antibiotics as prescribed. On arrival, patient tachycardic to 130, tachypneic to 32, noted to be hypoxic at 90% on room air placed on 2 L supplemental O2 with improvement to 94-98%. He did develop fever up to 101.2 which responded to ketorolac. He received IV fluids with improvement in heart rate. Blood pressure is soft but stable without hypoxia. He has a leukocytosis of 13.8. Renal function normal, electrolyte levels normal. Troponin below detectable limits. BNP 12. Urinalysis unremarkable. Negative for influenza, RSV, COVID-19. Chest x-ray suggestive of subtle patchy right basilar opacity which could reflect developing consolidation. D-dimer was elevated at 298 and subsequent chest CTA was negative for PE but did show multif ocal pneumonia as well as small pericardial effusion and bilateral adrenal hyperplasia. Review of Systems Review of Systems: General: No fevers, malaise, unintentional weight loss. +generalized weaknss, +c [place] HEENT: No blurred vision, diplopia. No sore throat, nasal congestion, rhinorrhea, sinus pain, ear pain Cardiovascular: No chest pain, palpitations, or leg edema Respiratory: +cough, +sob. +No wheezing GI: No abdominal pain, nausea, vomiting, diarrhea, constipation, melena, hematochezia : No dysuria, hematuria, increased urinary frequency, decreased urinary output MSK: No myalgia, back pain. +pleuritic cp Neuro: No headaches, focal weakness, paresthesias Skin: No rashes or lesions [facility] Medical History Asthma Closed fracture of leg Depression Hemorrhoids Hepatitis C History of empyema of pleura (01/05/23) HIV (human immunodeficiency virus infection) Hypertension Kidney stones Pleuritic chest pain Pneumonia Substance abuse Surgical History H/O hemorrhoidectomy Social History Household Members: None Housing: Apartment Do you presently have visiting nurse or other home services: Yes ([employer]) Alcohol intake: never Patient Tobacco Use Status: Never used Tobacco Smoked in Last 30 Days: No Second Hand Smoke Exposure: No Use of substances other than those prescribed or required for medical reasons: No Advance Directives: Yes Advance Directives on File: Yes Advance Directives Date on File: 04/25/21 service: No Current occupational status: disabled Meds Allergies Allergy/AdvReac Type Severity Reaction Status Date / Time Seasonal Allergies Allergy Intermediate Eye Verified 01/23/23 10:03 Drainage codeine Allergy Mild RASH Verified 01/23/23 10:03 [From Tylenol-Codeine #3] levofloxacin [From Levaquin] Allergy Mild Rash Verified 01/23/23 10:03 metoclopramide [From Reglan] Allergy Mild Rash Verified 01/23/23 10:03 acetaminophen Allergy Unknown Unknown Verified 01/23/23 10:03 [Tylenol-Codeine #3] ibuprofen [From Motrin] Allergy Unknown Reflux Verified 01/23/23 10:03 Penicillins [PENICILLINS] Allergy Unknown Rash Verified 01/23/23 10:03 tramadol [From Ultram] AdvReac Mild Nausea and Verified 01/23/23 10:03 Vomiting Active Medications: Current Medications Docusate Sodium (Docusate Sodium 100 Mg Capsule) 100 mg PO DAILY PRN PRN Reason: Constipation Enoxaparin Sodium (Enoxaparin Sodium 40 Mg/0.4 Ml Syringe) 40 mg SUBCUT Q24H MICHAEL Vancomycin HCl 1,500 mg/ (Sodium Chloride) 500 mls @ 333.333 mls/hr IV ONCE ONE Stop: 02/12/23 12:50 Ondansetron HCl (Ondansetron Hcl 4 Mg/2 Ml Vial) 4 mg IVPUSH Q8H PRN PRN Reason: Nausea and Vomiting Pharmacy Consult (Consult Rx Vancomycin Dosing) 1 each MISCELLANE DAILY PRN PRN Reason: Consult order Sodium Chloride (0.9 % Sodium Chloride Flush 3 Ml Syringe) 3 ml IVFLUSH [facility] Home Medications Medication Instructions Recorded Confirmed Last Taken Type amlodipine 5 mg tablet 5 mg PO DAILY 12/30/22 02/12/23 Unknown History bictegravir 50 mg-emtricitabine 1 tab PO DAILY 12/30/22 02/12/23 Unknown History 200 mg-tenofovir alafenam 25 mg tablet (Biktarvy) celecoxib 200 mg capsule 200 mg PO BID 12/30/22 02/12/23 Unknown History clonazepam 1 mg tablet 1 mg PO DAILY 12/30/22 02/12/23 Unknown History fluticasone propionate 110 1 puff inhalation BID 12/30/22 02/12/23 Unknown History mcg/actuation HFA aerosol inhaler (Flovent HFA) gabapentin 600 mg tablet 600 mg PO TID 12/30/22 02/12/23 Unknown History latanoprost 0.005 % eye drops 1 drp ophthalmic (eye) DAILY 12/30/22 02/12/23 Unknown History mirtazapine 30 mg tablet 60 mg PO BEDTIME 12/30/22 02/12/23 Unknown History propranolol 120 mg capsule,24 120 mg PO DAILY 12/30/22 02/12/23 Unknown History hr,extended release risperidone 2 mg tablet 2 mg PO BEDTIME 12/30/22 02/12/23 Unknown History tramadol 50 mg tablet 50 mg PO DAILY PRN Pain 12/30/22 02/12/23 Unknown History albuterol sulfate 90 mcg/actuation 2 puff inhalation Q6H PRN wheezing 02/12/23 02/12/23 Unknown History aerosol inhaler ascorbic acid (vitamin C) 250 mg 250 mg PO QAM 02/12/23 02/12/23 Unknown History tablet diphenhydramine HCl 25 mg tablet 50 mg PO BEDTIME PRN Sleep 02/12/23 02/12/23 U nknown History (Banophen) ferrous gluconate 324 mg (38 mg 324 mg PO QAM 02/12/23 02/12/23 Unknown History iron) tablet fluticasone propionate 115 2 puff inhalation BID 02/12/23 02/12/23 Unknown History mcg-salmeterol 21 mcg/actuation HFA inhaler ibuprofen 800 mg tablet 800 mg PO Q8H PRN pain 02/12/23 02/12/23 Unknown History Physical Exam Vital Signs and Narrative: Vital Signs: Last Vital Signs Temp 101.2 F H 02/12/23 08:57 Pulse 92 02/12/23 11:05 Resp 28 H 02/12/23 11:05 BP 103/69 02/12/23 11:05 Pulse Ox 96 02/12/23 11:05 O2 Del Method Nasal Cannula 02/12/23 11:05 O2 Flow Rate 2 02/12/23 11:05 Oxygen Flow Rate 2 02/12/23 05:46 BMI result Body Mass Index 20.7 Constitutional - Awake, No apparent distress, pallor, diaphoretic Eyes - PERRLA, EOMI Cardiovascular - S1S2, RRR, No edema Respiratory - Normal lung expansion, Normal respiratory effort, No respiratory distress, rhonchi left upper lung, diffuse lower lobe crackles Gastrointestinal - NT / ND; +BS; No rebound or guarding Extremities - no calf tenderness bilaterally, no swelling Skin - Warm/clammy Neurological - Alert & oriented x3, 5/5 strength BUE and BLE Psychological - Appropriate affect Results Labs 02/12/23 05:02 02/12/23 05:02 Labs: Laboratory Results - last 24 hr 02/12/23 02/12/23 02/12/23 05:02 05:02 05:02 MCV 89.1 MCH 28.3 MCHC 31.8 RDW 15.6 Plt Count 243 D MPV 10.8 Immature Gran % (Auto) 0.2 Neut % (Auto) 88.5 H Lymph % (Auto) 5.2 L [place] % (Auto) 5.6 Eos % (Auto) 0.3 Baso % (Auto) 0.2 Lymph # (Auto) 0.7 L [place] # (Auto) 0.8 Eos # (Auto) 0.0 Baso # (Auto) 0.0 Abs Immat Gran (auto) 0.03 Absolute Neuts (auto) 12.2 H Absolute Nucleated RBC 0.000 Nucleated RBC % (auto) 0.0 PT 12.6 INR 1.1 D-Dimer High Sensitivty 298 Anion Gap 15 Estim Creat Clear Calc 78.7 Estimated GFR > 60 Random Glucose 121 H Lactic Acid Calcium 9.6 Magnesium 1.9 Total Bilirubin 0.7 Direct Bilirubin 0.2 AST 12 ALT 13 Alkaline Phosphatase 88 Troponin I High Sens B-Natriuretic Peptide Total Protein 7.8 Albumin 4.2 Urine Color Urine Appearance Urine pH Ur Specific [place] Urine Protein Urine Glucose (UA) Urine Ketones Urine Blood Urine Nitrite Ur Leukocyte Esterase Influenza Type A (PCR) Influenza Type B (PCR) RSV RNA Qual (PCR) SARS-CoV-2 RNA (RT-PCR) 02/12/23 02/12/23 02/12/23 05:02 05:02 07:41 MCV MCH MCHC RDW Plt Count MPV Immature Gran % (Auto) Neut % (Auto) Lymph % (Auto) [place] % (Auto) Eos % (Auto) Baso % (Auto) Lymph # (Auto) [place] # (Auto) Eos # (Auto) Baso # (Auto) Abs Immat Gran (auto) Absolute Neuts (auto) Absolute Nucleated RBC Nucleated RBC % (auto) PT INR D-Dimer High Sensitivty Anion Gap Estim Creat Clear Calc Estimated GFR Random Glucose Lactic Acid 1.2 Calcium Magnesium Total Bilirubin Direct Bilirubin AST ALT Alkaline Phosphatase Troponin I High Sens < 2.7 D B-Natriuretic Peptide 12 Total Protein Albumin Urine Color Urine Appearance Urine pH Ur Specific [place] Urine Protein Urine Glucose (UA) Urine Ketones Urine Blood Urine Nitrite Ur Leukocyte Esterase Influenza Type A (PCR) Influenza Type B (PCR) RSV RNA Qual (PCR) SARS-CoV-2 RNA (RT-PCR) 02/12/23 02/12/23 07:44 07:44 MCV MCH MCHC RDW Plt Count MPV Immature Gran % (Auto) Neut % (Auto) Lymph % (Auto) [place] % (Auto) Eos % (Auto) Baso % (Auto) Lymph # (Auto) [place] # (Auto) Eos # (Auto) Baso # (Auto) Abs Immat Gran (auto) Absolute Neuts (auto) Absolute Nucleated RBC Nucleated RBC % (auto) PT INR D-Dimer High Sensitivty Anion Gap Estim Creat Clear Calc Estimated GFR Random Glucose Lactic Acid Calcium Magnesium Total Bilirubin Direct Bilirubin AST ALT Alkaline Phosphatase Troponin I High Sens B-Natriuretic Peptide Total Protein Albumin Urine Color Yellow Urine Appearance Hazy Urine pH 8.5 Ur Specific [place] 1.015 Urine Protein Negative Urine Glucose (UA) Negative Urine Ketones Negative Urine Blood Negative Urine Nitrite Negative Ur Leukocyte Esterase Negative Influenza Type A (PCR) NEGATIVE Influenza Type B (PCR) NEGATIVE RSV RNA Qual (PCR) NEGATIVE SARS-CoV-2 RNA (RT-PCR) NEGATIVE Imaging Radiologist's Impressions: Impressions Chest X-Ray 02/12/23 04:40 IMPRESSION: Suggestion of subtle patchy right basilar opacity which could reflect developing consolidation in the proper clinical setting. Chest CTA 02/12/23 08:48 IMPRESSION: Multifocal pneumonia. Follow-up until resolution is advised. No pulmonary embolus. Small pericardial effusion. Bilateral adrenal hyperplasia. 2 mm nonobstructing left renal calculus. Assessment and Plan (1) Multifocal pneumonia: Status: Acute (2) Acute respiratory failure with hypoxia: Status: Acute (3) Sepsis: Status: Acute Plan 57 year old male with history of HIV compliant with biktarvy, htn, hx substance abuse, moderate persistent asthma, hx hepatitis C with recent discharge on 01/15 for multifocal pneumonia with acute hypoxia requiring intubation and large empyema s/p chest tube placement admitted for acute multifocal pneumonia with sepsis and acute hypoxemic respiratory failure. Had full resolution of symptoms following discharge last month with recurrence of symptoms yesterday. #Acute hypoxemic respiratory failure- 2/2 multifocal pneumonia -Chest CTA negative for PE -Continue supplemental O2 to maintain oximetry >92% #Acute multifocal pneumonia with sepsis -CTA chest showing multifocal pneumonia -WBC 13.8, tachycardic to 130, tachypeniec to 32, febrile to 101.2. Lactic acid normal. No end organ damage. No severe sepsis/shock -Continue gentle IVF for soft BPs -IV cefepime and vanco (initiated 02/12) -ID consult -Symptomatic management -Sputum culture, legionella and strep pneumo ag #HIV -last CD4 377 11/30 -Compliant with biktarvy, continue as prescribed -ID consult placed #Moderate persistent asthma- no acute exacerbation -Continue maintenance inhalers, albuterol prn #HTN -bp soft, hold home antihypertensives DVT prophylaxis- lovenox Full code Pt requires inpt stay at least 2 nights for management of acute hypoxia requiring supplemental O2 and multifocal pneumonia with sepsis in immunocompromised patient requiring IV abx and expert consultation. Time Spent With Patient Time: Total time managing care of this patient today ____ minutes. Quality Stroke Does the patient have a stroke diagnosis?: No VTE Prior VTE?: No VTE Risk Level:: Medical - moderate - high VTE Device Contraindication: Treatment Not Indicated VTE Drug Contraindication: N/A - Med Ordered
[2023-02-12] MEDS: vancomycin HCL 1,500 MG in 0.9 % Sodium Chloride 500 ML 333.33 MG IV (12:32)
--- NOTE | 2023-02-12 12:57 | PHA.PROG ---
Admission Date/Time: February 12, 2023 11:39 Indication: RESPIRATORY Weight in k.06 kg Adjusted body weight in K.504 Pound body weight in K.8 Obesity Dosing Indication % IBW: 20.7 Serum Creatinine - Last 168 Hours 02/12/23 05:02 Creatinine 0.84 Estimated CrCl and GFR - Last 168 Hours 02/12/23 05:02 Estim Creat Clear Calc 78.7 Estimated GFR > 60 Vancomycin Loading Dose: 1500 MG Current Vancomycin Dosing Regimen: 750 Q12 HOURS Vancomycin Monitoring using AUC goal of 400 - 600 range with trough as surrogate marker: ANTICIPATE AUC 427 AND TROUGH 13.2 AFTER 4TH DOSE. Date and Time for next Vancomycin Level to be drawn: 02/13 @1000 Pharmacist Comments on Vancomycin Plan: GETTING RANDOM BEFORE 3RD DOSE DUE TO TIMING OF 4TH DOSE AT MIDNIGHT. EXPECTEED TROUGH WITH 3 DOSES IS 12.5. Vancomycin dosing will take advantage of [employer] as a clinical decision support tool that uses Bayesian modeling to calculate individual patient's pharmacokinetic parameters and forecast the patient's drug concentration time course with the target goal AUC 24 range of 400 - 600 mg/L/hr.
[2023-02-12] MEDS: Ascorbic Acid 250 MG TABLET PO (12:59)
[2023-02-12] MEDS: Enoxaparin Sodium 40 MG/0.4 ML SYRINGE SUBCUT (12:59)
[2023-02-12] MEDS: 0.9 % Sodium Chloride 1,000 ML 100 ML IVCONT ×2 (14:00→22:11)
[2023-02-12] MEDS: Gabapentin 600 MG TABLET PO ×2 (15:07→22:05)
[2023-02-12] MEDS: Lidocaine 4 % Patch ADH..PATCH 1 PATCH TRANSDERMA (15:07)
[2023-02-12] MEDS: Morphine Sulfate 2 MG/ML CARTRIDGE IVPUSH (15:07)
--- NOTE | 2023-02-12 16:31 | P.CNID_ITS ---
History of Present Illness Data of Consult Service Date: 02/12/23 Requesting physician: Soraida Amador Primary Care Provider: Terese Keenan MD HPI Reason for consult: shortness of breath,hypoxia He comes in with shortness of breath and cough productive of yellow/green sputum He has no fever or chills at this time . MRSA and staph aureus is negative. Review of Systems Review of Systems: Yes all other systems are reviewed and are negative PMFSH Past Medical History Medical History Asthma Closed fracture of leg Depression Hemorrhoids Hepatitis C History of empyema of pleura (01/05/23) HIV (human immunodeficiency virus infection) Hypertension Kidney stones Pleuritic chest pain Pneumonia Substance abuse Family History Family history: reviewed and not pertinent Surgical History Surgical History H/O hemorrhoidectomy Social History Social History Household Members: None Housing: Apartment Do you presently have visiting nurse or other home services: Yes ([employer]) Alcohol intake: never Patient Tobacco Use Status: Never used Tobacco Smoked in Last 30 Days: No Second Hand Smoke Exposure: No Use of substances other than those prescribed or required for medical reasons: No Advance Directives: Yes Advance Directives on File: Yes Advance Directives Date on File: 04/25/21 service: No Current occupational status: disabled Meds Allergies Allergy/AdvReac Type Severity Reaction Status Date / Time Seasonal Allergies Allergy Intermediate Eye Verified 01/23/23 10:03 Drainage codeine Allergy Mild RASH Verified 01/23/23 10:03 [From Tylenol-Codeine #3] levofloxacin [From Levaquin] Allergy Mild Rash Verified 01/23/23 10:03 metoclopramide [From Reglan] Allergy Mild Rash Verified 01/23/23 10:03 acetaminophen Allergy Unknown Unknown Verified 01/23/23 10:03 [Tylenol-Codeine #3] ibuprofen [From Motrin] Allergy Unknown Reflux Verified 01/23/23 10:03 Penicillins [PENICILLINS] Allergy Unknown Rash Verified 01/23/23 10:03 tramadol [From Ultram] AdvReac Mild Nausea and Verified 01/23/23 10:03 Vomiting Active Medications: Current Medications Acetaminophen (Acetaminophen 325 Mg Tablet) 650 mg PO Q4H PRN PRN Reason: fever, mild pain Albuterol Sulfate (Albuterol Sulfate 90 Mcg 8 Gm Inhaler) 2 puff INHALE Q6H PRN PRN Reason: wheezing Amlodipine Besylate (Amlodipine Besylate 5 Mg Tablet) 5 mg PO DAILY MICHAEL; P rotocol Ascorbic Acid (Ascorbic Acid 250 Mg Tablet) 250 mg PO DAILY [facility] Last Admin: 02/12/23 12:59 Dose: 250 mg Benzonatate (Benzonatate 100 Mg Capsule) 100 mg PO TID PRN PRN Reason: Cough Bictegravir/Emtricitabine/Tenofovir (Bictegrav/Emtricit/Tenofov Ala Tablet) 1 tab PO DAILY [facility] Celecoxib (Celecoxib 200 Mg Capsule) 200 mg PO BID MICHAEL Clonazepam (Clonazepam 1 Mg Tablet) 1 mg PO DAILY [facility] Diphenhydramine HCl (Diphenhydramine Hcl 25 Mg Capsule) 50 mg PO BEDTIME PRN PRN Reason: Sleep Docusate Sodium (Docusate Sodium 100 Mg Capsule) 100 mg PO DAILY PRN PRN Reason: Constipation Enoxaparin Sodium (Enoxaparin Sodium 40 Mg/0.4 Ml Syringe) 40 mg SUBCUT Q24H [facility] Last Admin: 02/12/23 12:59 Dose: 40 mg Ferrous Sulfate (Ferrous Sulfate 324 Mg Tablet.Dr) 324 mg PO DAILY [facility] Last Admin: 02/12/23 13:00 Dose: Not Given Fluticasone/Vilanterol (Fluticasone/Vilanterol 100/25 Blst.W.Dev) 1 puff INHALE RDAILY [facility] Gabapentin (Gabapentin 600 Mg Tablet) 600 mg PO TID [facility] Last Admin: 02/12/23 15:07 Dose: 600 mg Guaifenesin (Guaifenesin 200 Mg/10 Ml 10 Ml Liquid) 10 ml PO Q6H PRN PRN Reason: Cough Sodium Chloride (Ns) 1,000 mls @ 100 mls/hr IVCONT .Q10H [facility] Latanoprost (Latanoprost 0.005 % Ophth [place] 2.5 Ml Drops) 1 drop EYE-BOTH DAILY [facility] Lidocaine (Lidocaine 4 % Patch Adh..Patch) 1 patch TRANSDERMA DAILY [facility]; Protocol Last Admin: 02/12/23 15:07 Dose: 1 patch Mirtazapine (Mirtazapine 30 Mg Tablet) 60 mg PO BEDTIME MICHAEL Ondansetron HCl (Ondansetron Hcl 4 Mg/2 Ml Vial) 4 mg IVPUSH Q8H PRN PRN Reason: Nausea and Vomiting Pharmacy Consult (Consult Rx Vancomycin Dosing) 1 each MISCELLANE DAILY PRN PRN Reason: Consult order Risperidone (Risperidone 2 Mg Tablet) 2 mg PO BEDTIME MICHAEL Sodium Chloride (0.9 % Sodium Chloride Flush 3 Ml Syringe) 3 ml IVFLUSH QSHIFT [facility] Home Medications Medication Instructions Recorded Confirmed Last Taken Type amlodipine 5 mg tablet 5 mg PO DAILY 12/30/22 02/12/23 Unknown History bictegravir 50 mg-emtricitabine 1 tab PO DAILY 12/30/22 02/12/23 Unknown History 200 mg-tenofovir alafenam 25 mg tablet (Biktarvy) celecoxib 200 mg capsule 200 mg PO BID 12/30/22 02/12/23 Unknown History clonazepam 1 mg tablet 1 mg PO DAILY 12/30/22 02/12/23 Unknown History fluticasone propionate 110 1 puff inhalation BID 12/30/22 02/12/23 Unknown Histo ry mcg/actuation HFA aerosol inhaler (Flovent HFA) gabapentin 600 mg tablet 600 mg PO TID 12/30/22 02/12/23 Unknown History latanoprost 0.005 % eye drops 1 drp ophthalmic (eye) DAILY 12/30/22 02/12/23 Unknown History mirtazapine 30 mg tablet 60 mg PO BEDTIME 12/30/22 02/12/23 Unknown History propranolol 120 mg capsule,24 120 mg PO DAILY 12/30/22 02/12/23 Unknown History hr,extended release risperidone 2 mg tablet 2 mg PO BEDTIME 12/30/22 02/12/23 Unknown History tramadol 50 mg tablet 50 mg PO DAILY PRN Pain 12/30/22 02/12/23 Unknown History albuterol sulfate 90 mcg/actuation 2 puff inhalation Q6H PRN wheezing 02/12/23 02/12/23 Unknown History aerosol inhaler ascorbic acid (vitamin C) 250 mg 250 mg PO QAM 02/12/23 02/12/23 Unknown History tablet diphenhydramine HCl 25 mg tablet 50 mg PO BEDTIME PRN Sleep 02/12/23 02/12/23 Unknown History (Banophen) ferrous gluconate 324 mg (38 mg 324 mg PO QAM 02/12/23 02/12/23 Unknown History iron) tablet fluticasone propionate 115 2 puff inhalation BID 02/12/23 02/12/23 Unknown History mcg-salmeterol 21 mcg/actuation HFA inhaler ibuprofen 800 mg tablet 800 mg PO Q8H PRN pain 02/12/23 02/12/23 Unknown History Physical Exam Vital Signs: Vital Signs: Last Vital Signs Temp 98.0 F 02/12/23 15:15 Pulse 97 02/12/23 15:15 Resp 16 02/12/23 15:15 BP 131/83 02/12/23 15:15 Pulse Ox 97 02/12/23 15:15 O2 Del Method Nasal Cannula 02/12/23 15:15 O2 Flow Rate 2 02/12/23 15:15 Oxygen Flow Rate 2 02/12/23 05:46 BMI result Body Mass Index 20.7 Const: General: cooperative HEENT: Head: Yes normal to inspection Face and sinus: Yes normal facial exam Mouth: Normal oral and palatal mucosa present Teeth and gingiva: dentition normal Eyes: General: appearance normal, both eyes and all related structures Pupils: Equal, round and reactive pupils present Resp: Other: on 2 liter oxygen,90s Cardio: Rate: regular rate Rhythm: regular rhythm GI: Palpation (GI): Soft to palpation and nontender : General: Yes no CVA tenderness Back/Spine/Pelvis: Back: no CVA tenderness Skin: General skin exam: no rashes or lesions noted Neuro: General: moves all extremities Cranial nerves: Yes Equal, round and reactive pupils present Extrem: General: Yes normal to inspection Psych: Appearance: grossly normal Results Labs 02/12/23 05:02 02/12/23 05:02 Labs: Short CBC 02/12/23 Range/Units 05:02 WBC 13.8 H (4.8-10.8) X10*3/uL Hgb 12.5 L (14.0-18.0) g/dl Hct 39.3 L (42.0-52.0) % Plt Count 243 D (160-400) X10*3/uL BMP 02/12/23 05:02 Sodium 142 Potassium 3.7 Chloride 105 Carbon Dioxide 26 BUN 12 Creatinine 0.84 Calcium 9.6 Liver Function 02/12/23 Range/Units 05:02 Total Bilirubin 0.7 (0.0-1.0) mg/dL Direct Bilirubin 0.2 (0.0-0.5) mg/dL AST 12 (5-37) U/L ALT 13 (0-40) U/L Alkaline Phosphatase 88 (39-117) U/L Albumin 4.2 (3.5-5.0) g/dL Urine 02/12/23 Range/Units 07:44 Urine Color Yellow Urine Appearance Hazy Urine pH 8.5 (5.0-9.0) Ur Specific [place] 1.015 (1.005-1.025) Urine Protein Negative (Neg-Trace) mg/dL Urine Glucose (UA) Negative (Negative) mg/dL Assessment and Plan (1) Multifocal pneumonia: Status: Acute (2) Acute respiratory failure with hypoxia: Status: Acute He has lung deconditioning and has had recent empyema. He has HIV and has had good immune reconstitition. He has possible UIP or DIP,ANNA,fungus, Plan Hold antibiotics ,and especially hold Vancomycin since nasal swab negative. Check procalcitonin to help see if there is acute pneumonia. Pulmonary to see. Check sputum culture. Consider check IgG and Ig A levels. Time Spent With Patient Time: Total time managing care of this patient today ____ minutes.
[2023-02-12 18:29] LABS: Procalcitonin 0.45 ng/mL
[2023-02-12] MEDS: Azithromycin 500 MG in 0.9 % Sodium Chloride 250 ML 125 MG IV (18:32)
[2023-02-12] MEDS: Mirtazapine 30 MG TABLET 60 MG PO (22:06)
[2023-02-12] MEDS: Celecoxib 200 MG CAPSULE PO (22:06)
[2023-02-12] MEDS: risperiDONE 2 MG TABLET PO (22:06)
[2023-02-12] MEDS: Acetaminophen 325 MG TABLET 650 MG PO (22:14)
[2023-02-12] MEDS: guaiFENesin 200 MG/10 ML 10 ML LIQUID PO (22:15)
[2023-02-13] VITALS (7 sets, daily range): BP systolic 112–134; BP diastolic 73–85; PULSE 72–84; RESP 16–20; TEMP 36–36.9; O2SAT 92–98
[2023-02-13] MEDS: 0.9 % Sodium Chloride 1,000 ML 100 ML IVCONT (06:37)
[2023-02-13 06:54] LABS: MANUAL DIFF FLAG NO
[2023-02-13 07:01] LABS: Basophils Absolute Auto 0.1 X10*3/uL (0.0-0.2); Basophils Percent Auto 0.5 % (0-2); Eosinophils Absolute Auto 0.2 X10*3/uL (0.0-0.4); Eosinophils Percent Auto 1.2 % (0-4); Hematocrit 32.9 % (42.0-52.0); Hemoglobin 10.3 g/dl (14.0-18.0); Imm Gran Abs Auto 0.08 X10*3/uL (0.00-0.03); Imm Gran Pct Auto 0.5 % (0.0-0.4); Lymphocytes Percent Auto 11.7 % (20-40); Mean Corpuscular HGB Conc 31.3 g/dl (31.0-36.0); Mean Corpuscular Hemoglobin 28.1 pg (27.0-33.0); Mean Corpuscular Volume 89.9 fL (80.0-98.0); Mean Platelet Volume 11.2 fL (9.4-12.4); Monocytes Absolute Auto 1.3 X10*3/uL (0.1-1.2); Monocytes Percent Auto 7.5 % (2-11); Neutrophils Absolute Auto 13.5 x10*3/uL (2.0-8.3); Neutrophils Percent Auto 78.6 % (45-73); Platelet Count 222 X10*3/uL (160-400); Red Blood Count 3.66 X10*6/uL (4.60-5.80); Red Cell Distribution Width 15.9 % (11.0-16.0); White Blood Count 17.1 X10*3/uL (4.8-10.8)
[2023-02-13 07:37] LABS: Anion Gap 11 (12-20); Blood Urea Nitrogen 9 mg/dL (9-16); Carbon Dioxide 25 mmol/L (22-29); Chloride 112 mmol/L (96-108); Creatinine Clr Calc Pharmacy 94.4; Estimated Glomerular Filt Rate > 60; Glucose Random 82 mg/dL (60-115); Potassium 3.8 mmol/L (3.3-5.1); Sodium 144 mmol/L (135-145)
[2023-02-13 07:47] LABS: Calcium 8.4 mg/dL (8.4-10.2)
[2023-02-13] MEDS: 0.9 % Sodium Chloride Flush 3 ML SYRINGE IVFLUSH ×2 (09:20→17:25)
[2023-02-13] MEDS: Celecoxib 200 MG CAPSULE PO ×2 (09:20→21:18)
[2023-02-13] MEDS: Ascorbic Acid 250 MG TABLET PO (09:20)
[2023-02-13] MEDS: Ferrous Sulfate 324 MG TABLET.DR PO (09:20)
[2023-02-13] MEDS: amLODIPine Besylate 5 MG TABLET PO (09:20)
[2023-02-13] MEDS: clonazePAM 1 MG TABLET PO (09:20)
[2023-02-13] MEDS: Bictegrav/Emtricit/Tenofov Ala TABLET 1 TAB PO (09:20)
[2023-02-13] MEDS: Gabapentin 600 MG TABLET PO ×3 (09:20→21:19)
[2023-02-13] MEDS: Lidocaine 4 % Patch ADH..PATCH 1 PATCH TRANSDERMA (09:20)
--- NOTE | 2023-02-13 09:49 | P.CONPL_ITS ---
History of Present Illness History of Present Illness Consult date: 02/13/23 Chief complaint: Multifocal Pneumonia Narrative: 57-year-old gentleman with underlying HIV on HAART, hep C, recent admission for left-sided loculated pleural effusion requiring decortication now admitted on on 02/12/[address] chest demonstrated bilateral patchy, mostly posteriorly infiltrate with leukocytosis and increased sputum production consistent with clinical diagnosis of pneumonia. Review of Systems Constitutional: Constitutional: Denies daytime sleepiness, Denies excessive s weating, Denies fatigue, Denies fever(s), Denies lethargy, Denies malaise, Denies night sweats, Denies snoring and Denies weight loss Eyes: Eyes: Denies blurry vision and Denies itchy eyes ENT: Denies nasal congestion, Denies post nasal drip, Denies sinus pain, Denies sinus pressure and Denies other ( Thrush) Cardiovascular: Cardiovascular: Denies chest pain, Denies pedal edema, Denies dyspnea, Reports dyspnea on exertion, Denies orthopnea and Denies paroxysmal nocturnal dyspnea Respiratory: Respiratory: Reports cough, Denies hemoptysis, Reports excessive phlegm production, Denies dyspnea, Reports dyspnea on exertion, Denies snoring and Denies wheezing Gastrointestinal: Gastrointestinal: Denies abdominal pain and Denies heartburn Musculoskeletal: Musculoskeletal: Denies myalgias, Denies arthralgias and Denies joint swelling Integumentary/Breasts: Skin/Breast: Denies rash Neurologic: Denies memory loss and Denies seizure-like activity Psychiatric: Psychiatric: Denies abnormal sleep pattern, Denies anxiety and Denies memory loss Endocrine: Endocrine: Denies excessive sweating, Denies fatigue and Denies heat intolerance Hematologic/Lymphatic: Hematologic/Lymphatic: Denies easy bruising Allergic/Immunologic: Allergic/Immunologic: Denies itchy eyes, Denies seasonal rhinorrhea and Denies wheezing PMFSH Past Medical History Medical History Asthma Closed fracture of leg Depression Hemorrhoids Hepatitis C History of empyema of pleura (01/05/23) HIV (human immunodeficiency virus infection) Hypertension Kidney stones Pleuritic chest pain Pneumonia Substance abuse Family History Family history: reviewed and not pertinent Surgical History Surgical History H/O hemorrhoidectomy Social History Social History Household Members: None Housing: Apartment Do you presently have visiting nurse or other home services: Yes ([employer]) Alcohol intake: never Patient Tobacco Use Status: Never used Tobacco Second Hand Smoke Exposure: No Advance Directives Date on File: 04/25/21 service: No Current occupational status: disabled Meds Allergies Allergy/AdvReac Type Severity Reaction Status Date / Time Seasonal Allergies Allergy Intermediate Eye Verified 01/23/23 10:03 Drainage codeine Allergy Mild Rash Verified 02/13/23 08:33 [From Tylenol-Codeine #3] levofloxacin [From Levaquin] Allergy Mild Rash Verified 01/23/23 10:03 metoclopramide [From Reglan] Allergy Mild Rash Verified 01/23/23 10:03 acetaminophen Allergy Unknown Unknown Verified 01/23/23 10:03 [Tylenol-Codeine #3] Penicillins [PENICILLINS] Allergy Unknown Rash Verified 01/23/23 10:03 tramadol [From Ultram] AdvReac Mild Nausea and Verified 01/23/23 10:03 Vomiting ibuprofen [From Motrin] AdvReac Unknown Reflux Verified 02/13/23 08:33 Active Medications: Current Medications Acetaminophen (Acetaminophen 325 Mg Tablet) 650 mg PO Q4H PRN PRN Reason: fever, mild pain Last Admin: 02/12/23 22:14 Dose: 650 mg Albuterol Sulfate (Albuterol Sulfate 90 Mcg 8 Gm Inhaler) 2 puff INHALE Q6H PRN PRN Reason: wheezing Amlodipine Besylate (Amlodipine Besylate 5 Mg Tablet) 5 mg PO DAILY [facility]; Protocol Last Admin: 02/13/23 09:20 Dose: 5 mg Ascorbic Acid (Ascorbic Acid 250 Mg Tablet) 250 mg PO DAILY [facility] Last Admin: 02/13/23 09:20 Dose: 250 mg Benzonatate (Benzonatate 100 Mg Capsule) 100 mg PO TID PRN PRN Reason: Cough Bictegravir/Emtricitabine/Tenofovir (Bictegrav/Emtricit/Tenofov Ala Tablet) 1 tab PO DAILY [facility] Last Admin: 02/13/23 09:20 Dose: 1 tab Celecoxib (Celecoxib 200 Mg Capsule) 200 mg PO BID [facility] Last Admin: 02/13/23 09:20 Dose: 200 mg Clonazepam (Clonazepam 1 Mg Tablet) 1 mg PO DAILY [facility] Last Admin: 02/13/23 09:20 Dose: 1 mg Diphenhydramine HCl (Diphenhydramine Hcl 25 Mg Capsule) 50 mg PO BEDTIME PRN PRN Reason: Sleep Docusate Sodium (Docusate Sodium 100 Mg Capsule) 100 mg PO DAILY PRN PRN Reason: Constipation Enoxaparin Sodium (Enoxaparin Sodium 40 Mg/0.4 Ml Syringe) 40 mg SUBCUT Q24H [facility] Last Admin: 02/12/23 12:59 Dose: 40 mg Ferrous Sulfate (Ferrous Sulfate 324 Mg Tablet.Dr) 324 mg PO DAILY [facility] Last Admin: 02/13/23 09:20 Dose: 324 mg Fluticasone/Vilanterol (Fluticasone/Vilanterol 100/25 Blst.W.Dev) 1 puff INHALE RDAILY [facility] Last Admin: 02/13/23 08:25 Dose: Not Given Gabapentin (Gabapentin 600 Mg Tablet) 600 mg PO TID [facility] Last Admin: 02/13/23 09:20 Dose: 600 mg Guaifenesin (Guaifenesin 200 Mg/10 Ml 10 Ml Liquid) 10 ml PO Q6H PRN PRN Reason: Cough Last Admin: 02/12/23 22:15 Dose: 10 ml Sodium Chloride (Ns) 1,000 mls @ 100 mls/hr IVCONT .Q10H [facility] Last Admin: 02/13/23 06:37 Dose: 100 mls/hr Azithromycin 500 mg/ Sodium (Chloride) 250 mls @ 125 mls/hr IV Q24H [facility] Stop: 02/14/23 18:44 Last Infusion: 02/12/23 22:12 Dose: Infused Latanoprost (Latanoprost 0.005 % Ophth Carol 2.5 Ml Drops) 1 drop EYE-BOTH DAILY [facility] Lidocaine (Lidocaine 4 % Patch Adh..Patch) 1 patch TRANSDERMA DAILY [facility]; Protocol Last Admin: 02/13/23 09:20 Dose: 1 patch Mirtazapine (Mirtazapine 30 Mg Tablet) 60 mg PO BEDTIME [facility] Last Admin: 02/12/23 22:06 Dose: 60 mg Ondansetron HCl (Ondansetron Hcl 4 Mg/2 Ml Vial) 4 mg IVPUSH Q8H PRN PRN Reason: Nausea and Vomiting Pharmacy Consult (Consult Rx Vancomycin Dosing) 1 each MISCELLANE DAILY PRN PRN Reason: Consult order Risperidone (Risperidone 2 Mg Tablet) 2 mg PO BEDTIME [facility] Last Admin: 02/12/23 22:06 Dose: 2 mg Sodium Chloride (0.9 % Sodium Chloride Flush 3 Ml Syringe) 3 ml IVFLUSH QSHIFT [facility] Last Admin: 02/13/23 09:20 Dose: 3 ml Home Medications Medication Instructions Recorded Confirmed Last Taken Type amlodipine 5 mg tablet 5 mg PO DAILY 12/30/22 02/12/23 Unknown History bictegravir 50 mg-emtricitabine 1 tab PO DAILY 12/30/22 02/12/23 Unknown History 200 mg-tenofovir alafenam 25 mg tablet (Biktarvy) celecoxib 200 mg capsule 200 mg PO BID 12/30/22 02/12/23 Unknown History clonazepam 1 mg tablet 1 mg PO DAILY 12/30/22 02/12/23 Unknown History fluticasone propionate 110 1 puff inhalation BID 12/30/22 02/12/23 Unknown History mcg/actuation HFA aerosol inhaler (Flovent HFA) gabapentin 600 mg tablet 600 mg PO TID 12/30/22 02/12/23 Unknown History latanoprost 0.005 % eye drops 1 drp ophthalmic (eye) DAILY 12/30/22 02/12/23 Unknown History mirtazapine 30 mg tablet 60 mg PO BEDTIME 12/30/22 02/12/23 Unknown History propranolol 120 mg capsule,24 120 mg PO DAILY 12/30/22 02/12/23 Unknown History hr,extended release risperidone 2 mg tablet 2 mg PO BEDTIME 12/30/22 02/12/23 Unknown History tramadol 50 mg tablet 50 mg PO DAILY PRN Pain 12/30/22 02/12/23 Unknown History albuterol sulfate 90 mcg/actuation 2 puff inhalation Q6H PRN wheezing 02/12/23 02/12/23 Unknown History aerosol inhaler ascorbic acid (vitamin C) 250 mg 250 mg PO QAM 02/12/23 02/12/23 Unknown History tablet diphenhydramine HCl 25 mg tablet 50 mg PO BEDTIME PRN Sleep 02/12/23 02/12/23 Unknown History (Banophen) ferrous gluconate 324 mg (38 mg 324 mg PO QAM 02/12/23 02/12/23 Unknown History iron) tablet fluticasone propionate 115 2 puff inhalation BID 02/12/23 02/12/23 Unknown History mcg-salmeterol 21 mcg/actuation HFA inhaler ibuprofen 800 mg tablet 800 mg PO Q8H PRN pain 02/12/23 02/12/23 Unknown History Physical Exam Vital Signs: Vital Signs: Last Vital Signs Temp 98.4 F 02/13/23 07:19 Pulse 73 02/13/23 07:19 Resp 20 02/13/23 07:19 BP 133/79 02/13/23 07:19 Pulse Ox 98 02/13/23 07:19 O2 Del Method Nasal Cannula 02/13/23 07:19 O2 Flow Rate 2 02/13/23 07:19 Oxygen Flow Rate 2 02/12/23 05:46 BMI result Body Mass Index 20.7 Const: General: no acute distress and alert Nutritional Appearance: not obese Orientation/consciousness: Other orientation findings ( oriented) HEENT: Head: Yes atraumatic Mouth: no other ( thrush) Throat: No postnasal drainage Eyes: General: appearance normal, both eyes and all related structures Sclerae: sclerae normal EOM: EOMs intact bilaterally Neck: Neck: Yes supple Lymphatic: no lymphadenopathy noted Resp: Effort & Inspection: normal respiratory effort and no use of accessory muscles Auscultation: crackles ( Mild bilateral) Cardio: Rate: regular rate Rhythm: regular rhythm Heart sounds: no gallops, no murmurs and no rubs GI: Palpation (GI): Soft to palpation and Other GI palpation findings present ( nontender) Skin: General skin exam: other ( warm) Rashes: no rashes Extrem: General: No clubbing, No cyanosis and No edema Results Laboratory Findings 02/13/23 06:01 02/13/23 06:01 ABG, PT/INR, D-dimer: PT/INR, D-dimer PT 12.6 SEC (10.0-13.1) 02/12/23 05:02 INR 1.1 (0.9-1.1) 02/12/23 05:02 Abnormal lab findings: Abnormal Labs 02/12/23 02/12/23 02/13/23 05:02 05:02 06:01 WBC 13.8 H 17.1 H RBC 4.41 L 3.66 L Hgb 12.5 L 10.3 L Hct 39.3 L 32.9 L Immature Gran % (Auto) 0.5 H Neut % (Auto) 88.5 H 78.6 H Lymph % (Auto) 5.2 L 11.7 L Lymph # (Auto) 0.7 L Dolores # (Auto) 1.3 H Abs Immat Gran (auto) 0.08 H Absolute Neuts (auto) 12.2 H 13.5 H Chloride Anion Gap Random Glucose 121 H 02/13/23 06:01 WBC RBC Hgb Hct Immature Gran % (Auto) Neut % (Auto) Lymph % (Auto) Lymph # (Auto) Dolores # (Auto) Abs Immat Gran (auto) Absolute Neuts (auto) Chloride 112 H Anion Gap 11 L Random Glucose Assessment and Plan (1) Acute respiratory failure with hypoxia: Status: Acute (2) Multifocal pneumonia: Status: Acute Plan Impression /Recommendations: 57-year-old gentleman admitted with dyspnea, mild hypoxemia, productive cough, and leukocytosis with CT chest showing patchy bilateral infiltrates mostly posteriorly located, likely underlying pneumonia with an aspiration component. Procalcitonin level not prognostic in pneumonias. Clinical presentation is consistent with pneumonia. Patient is penicillin and Levaquin allergic, thus would not use Unasyn, and continue on cefepime. At this time radiologic findings are not consistent with desquamative interstitial pneumonia, usual interstitial fibrosis, or mycobacterium avium intracellulare complex infection. Time Spent With Patient Time: Total time managing care of this patient today ____ minutes. Procedures Date of Service Date of Service: 02/13/23
[2023-02-13 10:43] LABS: Vancomycin Random < 2.0 mcg/mL (15-20)
[2023-02-13] MEDS: oxyCODONE HCl Immed Release 5 MG TABLET PO ×2 (12:06→18:14)
[2023-02-13] MEDS: Enoxaparin Sodium 40 MG/0.4 ML SYRINGE SUBCUT (12:06)
--- NOTE | 2023-02-13 13:36 | MHC.CM.PN ---
CM met with Patient at bedside and addressed IMM with him, providing him with the original and placing a copy on the chart. 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 CM has initiated and will follow for dc planning.Patient was recently dc'd [facility] on 01/15/2023. Patient has received Covid vax x5 and his PCP is Dr. Monterroso.
[2023-02-13] MEDS: Acetaminophen 325 MG TABLET 650 MG PO ×2 (16:18→21:17)
[2023-02-13 16:30] LABS: Adenovirus PCR Not Detected (Not Detect.); Bordetella parapertussis PCR Not Detected (Not Detect.); Bordetella pertussis PCR Not Detected (Not Detect.); Chlamydia pneumoniae PCR Not Detected (Not Detect.); Coronavirus 229E PCR Not Detected (Not Detect.); Coronavirus HKU1 PCR Not Detected (Not Detect.); Coronavirus NL63 PCR Not Detected (Not Detect.); Coronavirus OC43 PCR Not Detected (Not Detect.); Human metapneumovirus PCR Not Detected (Not Detect.); Influenza A PCR Not Detected (Not Detect.); Influenza B PCR Not Detected (Not Detect.); Mycoplasma pneumoniae PCR Not Detected (Not Detect.); Parainfluenza 1 PCR Not Detected (Not Detect.); Parainfluenza 2 PCR Not Detected (Not Detect.); Parainfluenza 3 PCR Not Detected (Not Detect.); Parainfluenza 4 PCR Not Detected (Not Detect.); RSV PCR Not Detected (Not Detect.); Rhino/Enterovirus PCR Not Detected (Not Detect.); SARS-CoV-2 PCR Not Detected (Not Detect.)
--- NOTE | 2023-02-13 18:47 | HO.PM.IMPN ---
Subjective Subjective Date of Service: 02/13/23 Interval History: f/u on pna feels better Physical Exam Vital Signs: Vital Signs: Last Vital Signs Temp 98.4 F 02/13/23 16:00 Pulse 77 02/13/23 16:00 Resp 16 02/13/23 16:00 BP 125/85 02/13/23 16:00 Pulse Ox 97 02/13/23 16:00 O2 Del Method Nasal Cannula 02/13/23 16:00 O2 Flow Rate 2 02/13/23 16:00 Oxygen Flow Rate 2 02/12/23 05:46 BMI result Body Mass Index 20.7 Const: Other: General: AO X 3, no acute distress Resp: CTA bilateral CVS: S1,S2,RRR GI: +BS, NT, no distention Skin: No rash Neuro: motor grossly intact Psych: appropriate affect Objective Data Active Medications Acetaminophen (Acetaminophen 325 Mg Tablet) 650 mg PO Q4H PRN PRN Reason: fever, mild pain Last Admin: 02/13/23 16:18 Dose: 650 mg Documented By: GIANA Albuterol Sulfate (Albuterol Sulfate 90 Mcg 8 Gm Inhaler) 2 puff INHALE Q6H PRN PRN Reason: wheezing Amlodipine Besylate (Amlodipine Besylate 5 Mg Tablet) 5 mg PO DAILY [facility]; Protocol Last Admin: 02/13/23 09:20 Dose: 5 mg Documented By: GIANA Ascorbic Acid (Ascorbic Acid 250 Mg Tablet) 250 mg PO DAILY [facility] Last Admin: 02/13/23 09:20 Dose: 250 mg Documented By: GIANA Benzonatate (Benzonatate 100 Mg Capsule) 100 mg PO TID PRN PRN Reason: Cough Bictegravir/Emtricitabine/Tenofovir (Bictegrav/Emtricit/Tenofov Ala Tablet) 1 tab PO DAILY [facility] Last Admin: 02/13/23 09:20 Dose: 1 tab Documented By: GIANA Celecoxib (Celecoxib 200 Mg Capsule) 200 mg PO BID [facility] Last Admin: 02/13/23 09:20 Dose: 200 mg Documented By: GIANA Clonazepam (Clonazepam 1 Mg Tablet) 1 mg PO DAILY [facility] Last Admin: 02/13/23 09:20 Dose: 1 mg Documented By: GIANA Diphenhydramine HCl (Diphenhydramine Hcl 25 Mg Capsule) 50 mg PO BEDTIME PRN PRN Reason: Sleep Docusate Sodium (Docusate Sodium 100 Mg Capsule) 100 mg PO DAILY PRN PRN Reason: Constipation Enoxaparin Sodium (Enoxaparin Sodium 40 Mg/0.4 Ml Syringe) 40 mg SUBCUT Q24H [facility] Last Admin: 02/13/23 12:06 Dose: 40 mg Documented By: GIANA Ferrous Sulfate (Ferrous Sulfate 324 Mg Tablet.) 324 mg PO DAILY [facility] Last Admin: 02/13/23 09:20 Dose: 324 mg Documented By: GIANA Fluticasone/Vilanterol (Fluticasone/Vilanterol 100/25 Blst.W.Dev) 1 puff INHALE RDAILY [facility] Last Admin: 02/13/23 08:25 Dose: Not Given Documented By: ELSA Non-Admin Reason: med not available. Pharmacy called. Gabapentin (Gabapentin 600 Mg Tablet) 600 mg PO TID [facility] Last Admin: 02/13/23 16:18 Dose: 600 mg Documented By: GIANA Guaifenesin (Guaifenesin 200 Mg/10 Ml 10 Ml Liquid) 10 ml PO Q6H PRN PRN Reason: Cough Last Admin: 02/12/23 22:15 Dose: 10 ml Documented By: BASIM Sodium Chloride (Ns) 1,000 mls @ 100 mls/hr IVCONT .Q10H [facility] Last Infusion: 02/13/23 17:40 Dose: 0 mls/hr Documented By: GIANA Latanoprost (Latanoprost 0.005 % Ophth Carol 2.5 Ml Drops) 1 drop EYE-BOTH DAILY [facility] Last Admin: 02/13/23 12:00 Dose: Not Given Documented By: GIANA Non-Admin Reason: called pharmacy to bring Lidocaine (Lidocaine 4 % Patch Adh..Patch) 1 patch TRANSDERMA DAILY [facility]; Protocol Last Admin: 02/13/23 09:20 Dose: 1 patch Documented By: GIANA Mirtazapine (Mirtazapine 30 Mg Tablet) 60 mg PO BEDTIME [facility] Last Admin: 02/12/23 22:06 Dose: 60 mg Documented By: BASIM Ondansetron HCl (Ondansetron Hcl 4 Mg/2 Ml Vial) 4 mg IVPUSH Q8H PRN PRN Reason: Nausea and Vomiting Oxycodone HCl (Oxycodone Hcl Immed Release 5 Mg Tablet) 5 mg PO Q6H PRN PRN Reason: Pain, Severe (Pain Scale 7-10) Last Admin: 02/13/23 18:14 Dose: 5 mg Documented By: GIANA Pharmacy Consult (Consult Rx Vancomycin Dosing) 1 each MISCELLANE DAILY PRN PRN Reason: Consult order Risperidone (Risperidone 2 Mg Tablet) 2 mg PO BEDTIME [facility] Last Admin: 02/12/23 22:06 Dose: 2 mg Documented By: BASIM Sodium Chloride (0.9 % Sodium Chloride Flush 3 Ml Syringe) 3 ml IVFLUSH QSHIFT [facility] Last Admin: 02/13/23 17:25 Dose: 3 ml Documented By: GIANA Labs 02/13/23 06:01 02/13/23 06:01 Labs: Laboratory Results - last 24 hr 02/13/23 02/13/23 02/13/23 06:01 06:01 10:09 MCV 89.9 MCH 28.1 MCHC 31.3 RDW 15.9 Plt Count 222 MPV 11.2 Immature Gran % (Auto) 0.5 H Neut % (Auto) 78.6 H Lymph % (Auto) 11.7 L Barber % (Auto) 7.5 Eos % (Auto) 1.2 Baso % (Auto) 0.5 Lymph # (Auto) 2.0 Barber # (Auto) 1.3 H Eos # (Auto) 0.2 Baso # (Auto) 0.1 Abs Immat Gran (auto) 0.08 H Absolute Neuts (auto) 13.5 H Absolute Nucleated RBC 0.000 Nucleated RBC % (auto) 0.0 Anion Gap 11 L Estim Creat Clear Calc 94.4 Estimated GFR > 60 Random Glucose 82 Calcium 8.4 D Random Vancomycin < 2.0 L Respiratory Panel Cook Adenovirus (Rapid PCR) B.pert (TEM-PCR) B.parapertussis DNA PCR C. pneumoniae DNA (PCR) Coronavirus OC43 (PCR) Coronavirus HKU1 (PCR) Coronavirus 229E (PCR) Coronavirus NL63 (PCR) Human Metapneumovir PCR Influenza A (RT-PCR) Influenza B (RT-PCR) M. pneumoniae (PCR) Parainfluenza 1 (PCR) Parainfluenza 2 (PCR) Parainfluenza 3 (PCR) Parainfluenza 4 (PCR) RSV (PCR) Entero/Rhino (PCR) SARS-CoV-2 RNA (RT-PCR) 02/13/23 12:32 MCV MCH MCHC RDW Plt Count MPV Immature Gran % (Auto) Neut % (Auto) Lymph % (Auto) Barber % (Auto) Eos % (Auto) Baso % (Auto) Lymph # (Auto) Barber # (Auto) Eos # (Auto) Baso # (Auto) Abs Immat Gran (auto) Absolute Neuts (auto) Absolute Nucleated RBC Nucleated RBC % (auto) Anion Gap Estim Creat Clear Calc Estimated GFR Random Glucose Calcium Random Vancomycin Respiratory Panel Cook See Note Adenovirus (Rapid PCR) Not Detected B.pert (TEM-PCR) Not Detected B.parapertussis DNA PCR Not Detected C. pneumoniae DNA (PCR) Not Detected Coronavirus OC43 (PCR) Not Detected Coronavirus HKU1 (PCR) Not Detected Coronavirus 229E (PCR) Not Detected Coronavirus NL63 (PCR) Not Detected Human Metapneumovir PCR Not Detected Influenza A (RT-PCR) Not Detected Influenza B (RT-PCR) Not Detected M. pneumoniae (PCR) Not Detected Parainfluenza 1 (PCR) Not Detected Parainfluenza 2 (PCR) Not Detected Parainfluenza 3 (PCR) Not Detected Parainfluenza 4 (PCR) Not Detected RSV (PCR) Not Detected Entero/Rhino (PCR) Not Detected SARS-CoV-2 RNA (RT-PCR) Not Detected Microbiology Microbiology Results: Microbiology 02/12/23 17:20 Gram Stain - Final Sputum - Expectorated Sputum Culture - Preliminary Culture too young to evaluate. 02/12/23 07:58 Blood Culture - Preliminary Blood - Venous No growth after 24 hours. 02/12/23 07:45 Blood Culture - Preliminary Blood - Venous No growth after 24 hours. Assessment and Plan (1) Empyema lung: Status: Acute (2) Multifocal pneumonia: Status: Acute Plan 57 year old male with history of HIV compliant with biktarvy, htn, hx substance abuse, moderate persistent asthma, hx hepatitis C with recent discharge on 01/15 for multifocal pneumonia with acute hypoxia requiring intubation and large empyema s/p chest tube placement admitted for acute multifocal pneumonia with sepsis and acute hypoxemic respiratory failure. Had full resolution of symptoms following discharge last month with recurrence of symptoms yesterday. #Acute hypoxemic respiratory failure- 2/2 multifocal pneumonia -Chest CTA negative for PE -Continue supplemental O2 to maintain oximetry >92% #Acute multifocal pneumonia with sepsis -Cefepime #HIV -last CD4 377 11/30 -Compliant with biktarvy, continue as prescribed #Moderate persistent asthma- no acute exacerbation -Continue maintenance inhalers, albuterol prn #HTN -bp soft, hold home antihypertensives DVT prophylaxis- lovenox Full code need for inpatient: IV Abx for pna in patient with HIV Time Spent With Patient Time: Total time managing care of this patient today ____ minutes. Quality Stroke Does the patient have a stroke diagnosis?: No VTE Prior VTE?: No VTE Risk Level:: Medical - moderate - high VTE Device Contraindication: Treatment Not Indicated VTE Drug Contraindication: N/A - Med Ordered
[2023-02-13] MEDS: risperiDONE 2 MG TABLET PO (21:18)
[2023-02-13] MEDS: Mirtazapine 30 MG TABLET 60 MG PO (21:18)
[2023-02-13] MEDS: guaiFENesin 200 MG/10 ML 10 ML LIQUID PO (22:00)
[2023-02-14] VITALS (7 sets, daily range): BP systolic 118–142; BP diastolic 71–86; PULSE 67–81; RESP 16–21; TEMP 36.2–37.1; O2SAT 91–99
[2023-02-14] MEDS: 0.9 % Sodium Chloride 1,000 ML 100 ML IVCONT (00:03)
[2023-02-14 07:12] LABS: Creatinine Clr Calc Pharmacy 122.4; Estimated Glomerular Filt Rate > 60
[2023-02-14] MEDS: Fluticasone/Vilanterol 100/25 BLST.W.DEV 1 PUFF INHALE (07:55)
[2023-02-14] MEDS: Ascorbic Acid 250 MG TABLET PO (08:40)
[2023-02-14] MEDS: Bictegrav/Emtricit/Tenofov Ala TABLET 1 TAB PO (08:40)
[2023-02-14] MEDS: Ferrous Sulfate 324 MG TABLET.DR PO (08:40)
[2023-02-14] MEDS: Gabapentin 600 MG TABLET PO ×3 (08:40→21:20)
[2023-02-14] MEDS: clonazePAM 1 MG TABLET PO (08:40)
[2023-02-14] MEDS: Celecoxib 200 MG CAPSULE PO ×2 (08:41→21:20)
[2023-02-14] MEDS: amLODIPine Besylate 5 MG TABLET PO (08:41)
[2023-02-14] MEDS: 0.9 % Sodium Chloride Flush 3 ML SYRINGE IVFLUSH ×3 (08:41→21:20)
[2023-02-14] MEDS: cefEPime HCl 2 GM in 0.9 % Sodium Chloride 50 ML IV ×3 (08:43→16:18)
[2023-02-14] MEDS: Lidocaine 4 % Patch ADH..PATCH 1 PATCH TRANSDERMA (08:50)
[2023-02-14] MEDS: Latanoprost 0.005 % Ophth Sol 2.5 ML DROPS 1 DROP EYE-BOTH (09:32)
--- NOTE | 2023-02-14 11:24 | P.PNIM_ITS ---
Subjective Subjective Date of Service: 02/14/23 Interval History: f/u on pna continues to clinically look better Physical Exam Vital Signs: Vital Signs: Last Vital Signs Temp 97.1 F 02/14/23 07:05 Pulse 78 02/14/23 07:56 Resp 16 02/14/23 07:56 BP 138/72 02/14/23 07:05 Pulse Ox 93 02/14/23 07:05 O2 Del Method Nasal Cannula 02/14/23 07:05 O2 Flow Rate 2 02/14/23 07:05 Oxygen Flow Rate 2 02/12/23 05:46 BMI result Body Mass Index 20.7 Const: Other: General: AO X 3, no acute distress Resp: CTA bilateral CVS: S1,S2,RRR GI: +BS, NT, no distention Skin: No rash Neuro: motor grossly intact Psych: appropriate affect Objective Data Active Medications Acetaminophen (Acetaminophen 325 Mg Tablet) 650 mg PO Q4H PRN PRN Reason: fever, mild pain Last Admin: 02/13/23 21:17 Dose: 650 mg Documented By: QUEENIE Albuterol Sulfate (Albuterol Sulfate 90 Mcg 8 Gm Inhaler) 2 puff INHALE Q6H PRN PRN Reason: wheezing Amlodipine Besylate (Amlodipine Besylate 5 Mg Tablet) 5 mg PO DAILY [facility]; Protocol Last Admin: 02/14/23 08:41 Dose: 5 mg Documented By: ISRRAEL Ascorbic Acid (Ascorbic Acid 250 Mg Tablet) 250 mg PO DAILY [facility] Last Admin: 02/14/23 08:40 Dose: 250 mg Documented By: ISRRAEL Benzonatate (Benzonatate 100 Mg Capsule) 100 mg PO TID PRN PRN Reason: Cough Bictegravir/Emtricitabine/Tenofovir (Bictegrav/Emtricit/Tenofov Ala Tablet) 1 tab PO DAILY [facility] Last Admin: 02/14/23 08:40 Dose: 1 tab Documented By: ISRRAEL Celecoxib (Celecoxib 200 Mg Capsule) 200 mg PO BID [facility] Last Admin: 02/14/23 08:41 Dose: 200 mg Documented By: ISRRAEL Clonazepam (Clonazepam 1 Mg Tablet) 1 mg PO DAILY [facility] Last Admin: 02/14/23 08:40 Dose: 1 mg Documented By: ISRRAEL Diphenhydramine HCl (Diphenhydramine Hcl 25 Mg Capsule) 50 mg PO BEDTIME PRN PRN Reason: Sleep Docusate Sodium (Docusate Sodium 100 Mg Capsule) 100 mg PO DAILY PRN PRN Reason: Constipation Enoxaparin Sodium (Enoxaparin Sodium 40 Mg/0.4 Ml Syringe) 40 mg SUBCUT Q24H [facility] Last Admin: 02/13/23 12:06 Dose: 40 mg Documented By: GIANA Ferrous Sulfate (Ferrous Sulfate 324 Mg Tablet.Dr) 324 mg PO DAILY [facility] Last Admin: 02/14/23 08:40 Dose: 324 mg Documented By: ISRRAEL Fluticasone/Vilanterol (Fluticasone/Vilanterol 100/25 Blst.W.Dev) 1 puff INHALE RDAILY [facility] Last Admin: 02/14/23 07:55 Dose: 1 puff Documented By: RAYRAY Gabapentin (Gabapentin 600 Mg Tablet) 600 mg PO TID [facility] Last Admin: 02/14/23 08:40 Dose: 600 mg Documented By: ISRRAEL Guaifenesin (Guaifenesin 200 Mg/10 Ml 10 Ml Liquid) 10 ml PO Q6H PRN PRN Reason: Cough Last Admin: 02/13/23 22:00 Dose: 10 ml Documented By: QUEENIE Sodium Chloride (Ns) 1,000 mls @ 100 mls/hr IVCONT .Q10H [facility] Last Admin: 02/14/23 05:28 Dose: Not Given Documented By: QUEENIE Non-Admin Reason: IV Running Cefepime HCl 2 gm/ Sodium (Chloride) 50 mls @ 100 mls/hr IV Q8H [facility] Last Infusion: 02/14/23 09:35 Dose: 0 mls/hr Documented By: ISRRAEL Latanoprost (Latanoprost 0.005 % Ophth Carol 2.5 Ml Drops) 1 drop EYE-BOTH DAILY [facility] Last Admin: 02/14/23 09:32 Dose: 1 drop Documented By: ISRRAEL Lidocaine (Lidocaine 4 % Patch Adh..Patch) 1 patch TRANSDERMA DAILY [facility]; Protocol Last Admin: 02/14/23 08:50 Dose: 1 patch Documented By: ISRRAEL Mirtazapine (Mirtazapine 30 Mg Tablet) 60 mg PO BEDTIME [facility] Last Admin: 02/13/23 21:18 Dose: 60 mg Documented By: QUEENIE Ondansetron HCl (Ondansetron Hcl 4 Mg/2 Ml Vial) 4 mg IVPUSH Q8H PRN PRN Reason: Nausea and Vomiting Oxycodone HCl (Oxycodone Hcl Immed Release 5 Mg Tablet) 5 mg PO Q6H PRN PRN Reason: Pain, Severe (Pain Scale 7-10) Last Admin: 02/13/23 18:14 Dose: 5 mg Documented By: GIANA Risperidone (Risperidone 2 Mg Tablet) 2 mg PO BEDTIME [facility] Last Admin: 02/13/23 21:18 Dose: 2 mg Documented By: QUEENIE Sodium Chloride (0.9 % Sodium Chloride Flush 3 Ml Syringe) 3 ml IVFLUSH QSHIFT [facility] Last Admin: 02/14/23 08:41 Dose: 3 ml Documented By: CTORRZ Labs 02/13/23 06:01 02/14/23 06:01 Labs: Laboratory Results - last 24 hr 02/13/23 02/14/23 12:32 06:01 Estim Creat Clear Calc 122.4 Estimated GFR > 60 Respiratory Panel Cook See Note Adenovirus (Rapid PCR) Not Detected B.pert (TEM-PCR) Not Detected B.parapertussis DNA PCR Not Detected C. pneumoniae DNA (PCR) Not Detected Coronavirus OC43 (PCR) Not Detected Coronavirus HKU1 (PCR) Not Detected Coronavirus 229E (PCR) Not Detected Coronavirus NL63 (PCR) Not Detected Human Metapneumovir PCR Not Detected Influenza A (RT-PCR) Not Detected Influenza B (RT-PCR) Not Detected M. pneumoniae (PCR) Not Detected Parainfluenza 1 (PCR) Not Detected Parainfluenza 2 (PCR) Not Detected Parainfluenza 3 (PCR) Not Detected Parainfluenza 4 (PCR) Not Detected RSV (PCR) Not Detected Entero/Rhino (PCR) Not Detected SARS-CoV-2 RNA (RT-PCR) Not Detected Microbiology Microbiology Results: Microbiology 02/12/23 17:20 Gram Stain - Final Sputum - Expectorated Sputum Culture - Final 02/12/23 07:58 Blood Culture - Preliminary Blood - Venous No growth after 48 hours. 02/12/23 07:45 Blood Culture - Preliminary Blood - Venous No growth after 48 hours. Assessment and Plan (1) Empyema lung: Status: Acute (2) Multifocal pneumonia: Status: Acute Plan 57 year old male with history of HIV compliant with biktarvy, htn, hx substance abuse, moderate persistent asthma, hx hepatitis C with recent discharge on 01/15 for multifocal pneumonia with acute hypoxia requiring intubation and large empyema s/p chest tube placement admitted for acute multifocal pneumonia with sepsis and acute hypoxemic respiratory failure. Had full resolution of symptoms following discharge last month with recurrence of symptoms yesterday. #Acute hypoxemic respiratory failure- 2/2 multifocal pneumonia, clinically improving -Continue supplemental O2 to maintain oximetry >92% #Acute multifocal pneumonia with sepsis -Cefepime started 02/12 #HIV -last CD4 377 11/30 -Compliant with biktarvy, continue as prescribed #Moderate persistent asthma- no acute exacerbation -Continue maintenance inhalers, albuterol prn #HTN -bp soft, hold home antihypertensives DVT prophylaxis- lovenox Full code need for inpatient: IV Abx for pna in patient with HIV Time Spent With Patient Time: Total time managing care of this patient today ____ minutes. Quality Stroke Does the patient have a stroke diagnosis?: No VTE Prior VTE?: No VTE Risk Level:: Medical - moderate - high VTE Device Contraindication: Treatment Not Indicated VTE Drug Contraindication: N/A - Med Ordered
[2023-02-14] MEDS: Enoxaparin Sodium 40 MG/0.4 ML SYRINGE SUBCUT (12:16)
--- NOTE | 2023-02-14 13:57 | PM.IDPN ---
Subjective Subjective Date of Service: 02/13/23 Critical Care Time (minutes): 15 Comment: he has occasional cough Objective Data Labs 02/13/23 06:01 02/14/23 06:01 Labs: Laboratory Results - last 24 hr 02/13/23 02/14/23 12:32 06:01 Creatinine 0.54 Estim Creat Clear Calc 122.4 Estimated GFR > 60 Respiratory Panel Cook See Note Adenovirus (Rapid PCR) Not Detected B.pert (TEM-PCR) Not Detected B.parapertussis DNA PCR Not Detected C. pneumoniae DNA (PCR) Not Detected Coronavirus OC43 (PCR) Not Detected Coronavirus HKU1 (PCR) Not Detected Coronavirus 229E (PCR) Not Detected Coronavirus NL63 (PCR) Not Detected Human Metapneumovir PCR Not Detected Influenza A (RT-PCR) Not Detected Influenza B (RT-PCR) Not Detected M. pneumoniae (PCR) Not Detected Parainfluenza 1 (PCR) Not Detected Parainfluenza 2 (PCR) Not Detected Parainfluenza 3 (PCR) Not Detected Parainfluenza 4 (PCR) Not Detected RSV (PCR) Not Detected Entero/Rhino (PCR) Not Detected SARS-CoV-2 RNA (RT-PCR) Not Detected Microbiology Microbiology Results: Microbiology 02/12/23 17:20 Sputum - Expectorated Gram Stain - Final 02/12/23 17:20 Sputum - Expectorated Sputum Culture - Final 02/12/23 07:58 Blood - Venous Blood Culture - Preliminary No growth after 48 hours. 02/12/23 07:45 Blood - Venous Blood Culture - Preliminary No growth after 48 hours. Physical Exam Vital Signs: Vital Signs: Last Vital Signs Temp 97.7 F 02/14/23 11:33 Pulse 81 02/14/23 11:33 Resp 20 02/14/23 11:33 BP 128/78 02/14/23 11:33 Pulse Ox 97 02/14/23 11:33 O2 Del Method Nasal Cannula 02/14/23 11:33 O2 Flow Rate 2 02/14/23 11:33 Oxygen Flow Rate 2 02/12/23 05:46 BMI result Body Mass Index 20.7 Const: General: cooperative HEENT: Head: Yes normal to inspection Mouth: Normal oral and palatal mucosa present Resp: Effort & Inspection: normal respiratory effort Cardio: Rate: regular rate Rhythm: regular rhythm GI: Inspection: Yes normal to inspection Assessment and Plan Assessment and plan (1) Multifocal pneumonia: Problem details: chronic pneumonia possible bronchiectasis ,mucus plugging no organism ever identified Status: Acute Assessment and Plan: Stop Cefepime after 4-5 days Continue Biktarvy Follow Pulmonary (2) Acute respiratory failure with hypoxia: Status: Acute Time Spent With Patient Time: Total time managing care of this patient today ____ minutes.
[2023-02-14] MEDS: Docusate Sodium 100 MG CAPSULE PO (18:39)
[2023-02-14] MEDS: guaiFENesin 200 MG/10 ML 10 ML LIQUID PO (18:39)
[2023-02-14] MEDS: Mirtazapine 30 MG TABLET 60 MG PO (21:20)
[2023-02-14] MEDS: risperiDONE 2 MG TABLET PO (21:20)
[2023-02-14] MEDS: Albuterol Sulfate 90 MCG 8 GM INHALER 2 PUFF INHALE (22:08)
[2023-02-15] MEDS: cefEPime HCl 2 GM in 0.9 % Sodium Chloride 50 ML IV ×3 (01:28→16:48)
[2023-02-15 03:52] VITALS: BP 118/70; PULSE 76; RESP 16; TEMP 36.6; O2SAT 96
[2023-02-15 06:57] LABS: Hematocrit 34.7 % (42.0-52.0); Hemoglobin 11.1 g/dl (14.0-18.0); Mean Corpuscular Hemoglobin 28.4 pg (27.0-33.0); Mean Corpuscular Volume 88.7 fL (80.0-98.0); Platelet Count 280 X10*3/uL (160-400); Red Blood Count 3.91 X10*6/uL (4.60-5.80); Red Cell Distribution Width 15.4 % (11.0-16.0)
[2023-02-15 07:29] VITALS: BP 132/83; PULSE 75; RESP 19; TEMP 36.7; O2SAT 95
[2023-02-15] MEDS: Fluticasone/Vilanterol 100/25 BLST.W.DEV 1 PUFF INHALE (07:50)
[2023-02-15] MEDS: Bictegrav/Emtricit/Tenofov Ala TABLET 1 TAB PO (07:50)
[2023-02-15] MEDS: Ascorbic Acid 250 MG TABLET PO (07:50)
[2023-02-15] MEDS: Gabapentin 600 MG TABLET PO ×3 (07:50→20:47)
[2023-02-15 07:51] VITALS: PULSE 75; RESP 16; O2SAT 95
[2023-02-15] MEDS: Celecoxib 200 MG CAPSULE PO ×2 (07:51→20:47)
[2023-02-15] MEDS: amLODIPine Besylate 5 MG TABLET PO (07:51)
[2023-02-15] MEDS: clonazePAM 1 MG TABLET PO (07:51)
[2023-02-15] MEDS: 0.9 % Sodium Chloride Flush 3 ML SYRINGE IVFLUSH ×2 (07:51→16:48)
[2023-02-15] MEDS: Latanoprost 0.005 % Ophth Sol 2.5 ML DROPS 1 DROP EYE-BOTH (07:53)
[2023-02-15 11:51] VITALS: BP 113/70; PULSE 81; RESP 20; TEMP 36.3; O2SAT 96
[2023-02-15] MEDS: Enoxaparin Sodium 40 MG/0.4 ML SYRINGE SUBCUT (12:45)
--- NOTE | 2023-02-15 12:53 | HO.PM.IMPN ---
Subjective Subjective Date of Service: 02/15/23 Interval History: f/u on pna continues to clinically look better, not hypoxic Physical Exam Vital Signs: Vital Signs: Last Vital Signs Temp 97.4 F 02/15/23 11:51 Pulse 81 02/15/23 11:51 Resp 20 02/15/23 11:51 BP 113/70 02/15/23 11:51 Pulse Ox 96 02/15/23 11:51 O2 Del Method Room Air 02/15/23 11:51 O2 Flow Rate 2 02/14/23 11:33 Oxygen Flow Rate 2 02/12/23 05:46 BMI result Body Mass Index 20.7 Const: Other: General: AO X 3, no acute distress Resp: CTA bilateral CVS: S1,S2,RRR GI: +BS, NT, no distention Skin: No rash Neuro: motor grossly intact Psych: appropriate affect Objective Data Active Medications Acetaminophen (Acetaminophen 325 Mg Tablet) 650 mg PO Q4H PRN PRN Reason: fever, mild pain Last Admin: 02/13/23 21:17 Dose: 650 mg Documented By: QUEENIE Albuterol Sulfate (Albuterol Sulfate 90 Mcg 8 Gm Inhaler) 2 puff INHALE RQ6H PRN PRN Reason: wheezing Last Admin: 02/14/23 22:08 Dose: 2 puff Documented By: ROSA Amlodipine Besylate (Amlodipine Besylate 5 Mg Tablet) 5 mg PO DAILY [facility]; Protocol Last Admin: 02/15/23 07:51 Dose: 5 mg Documented By: ISRRAEL Ascorbic Acid (Ascorbic Acid 250 Mg Tablet) 250 mg PO DAILY [facility] Last Admin: 02/15/23 07:50 Dose: 250 mg Documented By: ISRRAEL Benzonatate (Benzonatate 100 Mg Capsule) 100 mg PO TID PRN PRN Reason: Cough Bictegravir/Emtricitabine/Tenofovir (Bictegrav/Emtricit/Tenofov Ala Tablet) 1 tab PO DAILY [facility] Last Admin: 02/15/23 07:50 Dose: 1 tab Documented By: ISRRAEL Celecoxib (Celecoxib 200 Mg Capsule) 200 mg PO BID [facility] Last Admin: 02/15/23 07:51 Dose: 200 mg Documented By: ISRRAEL Clonazepam (Clonazepam 1 Mg Tablet) 1 mg PO DAILY [facility] Last Admin: 02/15/23 07:51 Dose: 1 mg Documented By: ISRRAEL Diphenhydramine HCl (Diphenhydramine Hcl 25 Mg Capsule) 50 mg PO BEDTIME PRN PRN Reason: Sleep Docusate Sodium (Docusate Sodium 100 Mg Capsule) 100 mg PO DAILY PRN PRN Reason: Constipation Last Admin: 02/14/23 18:39 Dose: 100 mg Documented By: ISRRAEL Enoxaparin Sodium (Enoxaparin Sodium 40 Mg/0.4 Ml Syringe) 40 mg SUBCUT Q24H [facility] Last Admin: 02/15/23 12:45 Dose: 40 mg Documented By: ISRRAEL Ferrous Sulfate (Ferrous Sulfate 324 Mg Tablet.Dr) 324 mg PO DAILY [facility] Last Admin: 02/15/23 07:55 Dose: Not Given Documented By: ISRRAEL Non-Admin Reason: Patient Refused Fluticasone/Vilanterol (Fluticasone/Vilanterol 100/25 Blst.W.Dev) 1 puff INHALE RDAILY [facility] Last Admin: 02/15/23 07:50 Dose: 1 puff Documented By: RAYRAY Gabapentin (Gabapentin 600 Mg Tablet) 600 mg PO TID [facility] Last Admin: 02/15/23 07:50 Dose: 600 mg Documented By: ISRRAEL Guaifenesin (Guaifenesin 200 Mg/10 Ml 10 Ml Liquid) 10 ml PO Q6H PRN PRN Reason: Cough Last Admin: 02/14/23 18:39 Dose: 10 ml Documented By: ISRRAEL Cefepime HCl 2 gm/ Sodium (Chloride) 50 mls @ 100 mls/hr IV Q8H [facility] Last Infusion: 02/15/23 09:50 Dose: 0 mls/hr Documented By: ISRRAEL Latanoprost (Latanoprost 0.005 % Ophth Carol 2.5 Ml Drops) 1 drop EYE-BOTH DAILY [facility] Last Admin: 02/15/23 07:53 Dose: 1 drop Documented By: ISRRAEL Lidocaine (Lidocaine 4 % Patch Adh..Patch) 1 patch TRANSDERMA DAILY [facility]; Protocol Last Admin: 02/14/23 08:50 Dose: 1 patch Documented By: ISRRAEL Mirtazapine (Mirtazapine 30 Mg Tablet) 60 mg PO BEDTIME [facility] Last Admin: 02/14/23 21:20 Dose: 60 mg Documented By: ROSA Ondansetron HCl (Ondansetron Hcl 4 Mg/2 Ml Vial) 4 mg IVPUSH Q8H PRN PRN Reason: Nausea and Vomiting Oxycodone HCl (Oxycodone Hcl Immed Release 5 Mg Tablet) 5 mg PO Q6H PRN PRN Reason: Pain, Severe (Pain Scale 7-10) Last Admin: 02/13/23 18:14 Dose: 5 mg Documented By: GIANA Risperidone (Risperidone 2 Mg Tablet) 2 mg PO BEDTIME [facility] Last Admin: 02/14/23 21:20 Dose: 2 mg Documented By: ROSA Sodium Chloride (0.9 % Sodium Chloride Flush 3 Ml Syringe) 3 ml IVFLUSH QSHIFT [facility] Last Admin: 02/15/23 07:51 Dose: 3 ml Documented By: CTORRZ Labs 02/15/23 06:39 02/14/23 06:01 Labs: Laboratory Results - last 24 hr 02/15/23 06:39 MCV 88.7 MCH 28.4 MCHC 32.0 RDW 15.4 Plt Count 280 D MPV 11.0 Absolute Nucleated RBC 0.000 Nucleated RBC % (auto) 0.0 Microbiology Microbiology Results: Microbiology 02/12/23 17:20 Gram Stain - Final Sputum - Expectorated Sputum Culture - Final 02/12/23 07:58 Blood Culture - Preliminary Blood - Venous No growth after 48 hours. 02/12/23 07:45 Blood Culture - Preliminary Blood - Venous No growth after 48 hours. Assessment and Plan (1) Empyema lung: Status: Acute (2) Multifocal pneumonia: Status: Acute Plan 57 year old male with history of HIV compliant with biktarvy, htn, hx substance abuse, moderate persistent asthma, hx hepatitis C with recent discharge on 01/15 for multifocal pneumonia with acute hypoxia requiring intubation and large empyema s/p chest tube placement admitted for acute multifocal pneumonia with sepsis and acute hypoxemic respiratory failure. Had full resolution of symptoms following discharge last month with recurrence of symptoms yesterday. #Acute hypoxemic respiratory failure- 2/2 multifocal pneumonia, clinically improved -Continue supplemental O2 to maintain oximetry >92% #Acute multifocal pneumonia with sepsis -Cefepime started 02/12, for 1 more day per id recommendaton -pulmonology folloowing #HIV -last CD4 377 11/30 -Compliant with biktarvy, continue as prescribed #Moderate persistent asthma- no acute exacerbation -Continue maintenance inhalers, albuterol prn #HTN -bp soft, hold home antihypertensives DVT prophylaxis- lovenox Full code need for inpatient: IV Abx for pna in patient with HIV, probable discharge tomorrow Time Spent With Patient Time: Total time managing care of this patient today ____ minutes. Quality Stroke Does the patient have a stroke diagnosis?: No VTE Prior VTE?: No VTE Risk Level:: Medical - moderate - high VTE Device Contraindication: Treatment Not Indicated VTE Drug Contraindication: N/A - Med Ordered
[2023-02-15 15:20] VITALS: BP 128/60; PULSE 84; RESP 20; TEMP 36.3; O2SAT 93
[2023-02-15] MEDS: Benzonatate 100 MG CAPSULE PO ×2 (16:53→20:47)
[2023-02-15 19:04] LABS: Strep Pneumo Ag urine Not Detected (Not Detected)
[2023-02-15 19:22] VITALS: BP 131/74; PULSE 81; RESP 20; TEMP 36.3; O2SAT 96
[2023-02-15] MEDS: Mirtazapine 30 MG TABLET 60 MG PO (20:47)
[2023-02-15] MEDS: risperiDONE 2 MG TABLET PO (20:47)
[2023-02-15] MEDS: guaiFENesin 200 MG/10 ML 10 ML LIQUID PO (20:48)
[2023-02-16] VITALS: BP 119/73; PULSE 77; RESP 18; TEMP 36.5; O2SAT 95
[2023-02-16] MEDS: cefEPime HCl 2 GM in 0.9 % Sodium Chloride 50 ML IV ×2 (00:45→07:58)
[2023-02-16] MEDS: 0.9 % Sodium Chloride Flush 3 ML SYRINGE IVFLUSH ×2 (00:49→07:58)
[2023-02-16 03:12] VITALS: BP 136/81; PULSE 73; RESP 16; TEMP 36.6; O2SAT 95
[2023-02-16 07:50] VITALS: BP 124/76; PULSE 79; RESP 18; TEMP 36.6; O2SAT 97
[2023-02-16] MEDS: Ascorbic Acid 250 MG TABLET PO (07:59)
[2023-02-16] MEDS: Bictegrav/Emtricit/Tenofov Ala TABLET 1 TAB PO (07:59)
[2023-02-16] MEDS: amLODIPine Besylate 5 MG TABLET PO (07:59)
[2023-02-16] MEDS: Gabapentin 600 MG TABLET PO (07:59)
[2023-02-16] MEDS: clonazePAM 1 MG TABLET PO (07:59)
[2023-02-16] MEDS: Celecoxib 200 MG CAPSULE PO (07:59)
[2023-02-16] MEDS: Ferrous Sulfate 324 MG TABLET.DR PO (07:59)
[2023-02-16] MEDS: Latanoprost 0.005 % Ophth Sol 2.5 ML DROPS 1 DROP EYE-BOTH (08:07)
[2023-02-16 08:40] VITALS: PULSE 79; RESP 16; O2SAT 94
[2023-02-16] MEDS: Fluticasone/Vilanterol 100/25 BLST.W.DEV 1 PUFF INHALE (08:40)
--- NOTE | 2023-02-16 09:11 | P.DS_ITS ---
DS: Providers Provider Date of Service: 02/16/23 Date of admission: 02/12/23 11:39 Primary care physician: Terese Keenan MD Consults: 02/12/23 15:45 Consult to Infectious Diseases Routine Consulting Provider: [facility] Infectious Disease Reason for consultation: multifocal pneumonia, HIV pt, recent d/c for empyema 02/12/23 16:39 Consult to Pulmonology Routine Consulting Provider: [facility] Pulmonology Services Reason for consultation: multifocal pneumonia, recent emypema DS: Diagnosis Discharge Diagnosis (1) Empyema lung: Status: Acute (2) Multifocal pneumonia: Status: Acute DS: Summary Hospital Course Hospital Course: Chief Complaint: sob, cough 57 year old male with history of HIV compliant with biktarvy, htn, hx substance abuse, moderate persistent asthma, hx hepatitis C presented to the ED for evaluation 1 day sob, nonproductive cough, subjective fevers/chills, pleuritic chest pain, and weakness. He was recently discharged on 01/15 after being treated for multifocal pneumonia with acute hypoxemic respiratory failure requiring intubation in ICU and was noted to have large empyema with chest tube placed by general surgery. He completed outpatinet antibiotics as prescribed.? On arrival, patient tachycardic to 130, tachypneic to 32, noted to be hypoxic at 90% on room air placed on 2 L supplemental O2 with improvement to 94-98%.? He did develop fever up to 101.2 which responded to ketorolac.? He received IV fluids with improvement in heart rate.? Blood pressure is soft but stable without hypoxia.? He has a leukocytosis of 13.8.? Renal function normal, electrolyte levels normal.? Troponin below detectable limits.? BNP 12.? Urinalysis unremarkable.? Negative for influenza, RSV, COVID-19.? Chest x-ray suggestive of subtle patchy right basilar opacity which could reflect developing consolidation.? D-dimer was elevated at 298 and subsequent chest CTA was negative for PE but did show multifocal pneumonia as well as small pericardial effusion and bilateral adrenal hyperplasia. Hospital course: This patient with HIV presented with sob, hypoxic, fever, tachycardia and found to have WBC of 17, CXR and CT of chest suggested multifocal pneumonia and he was initiated on broad spec Abx with Vancomycin and Cefepime for treatement of Sepsis d/t pneumonia. He made rapid recovery and was transitioned off O2 by 3rd aneudy, WBC came down to normal by 3rd day as well, tachycardia and fever resolved. He has Pen and quinolone allergy. ID saw him and recommended treatment with Cefepime for 5 days and now will be transitioned to Doxycycline for another 5 days. He is breathing easy and feels comfortable going home. Final diagnosis: Sepsis pneumonia acute hypoxic respriatory failure] HIV Time Spent with Patient Time attestation: Total time managing care of this patient today ____ minutes. Discharge coordination time: Greater than 30 minutes Quality: Safe Use of Opioids Does Pt have an Active Cancer Diagnosis on the Problem List?: No Quality: Stroke Does the patient have a stroke diagnosis?: No Physical Exam Vital Signs: Vital Signs: Last Vital Signs Temp 97.9 F 02/16/23 07:50 Pulse 79 02/16/23 08:40 Resp 16 02/16/23 08:40 BP 124/76 02/16/23 07:50 Pulse Ox 97 02/16/23 07:50 O2 Del Method Room Air 02/16/23 07:50 O2 Flow Rate 2 02/14/23 11:33 Oxygen Flow Rate 2 02/12/23 05:46 BMI result Body Mass Index 20.7 Const: Other: General: AO X 3, no acute distress Resp: CTA bilateral CVS: S1,S2,RRR GI: +BS, NT, no distention Skin: No rash Neuro: motor grossly intact Psych: appropriate affect DS: Data Data Completed and Pending Completed studies during hospitalization [Text1]: Procedures Labs on day of discharge: Laboratory Results - last 24 hr 02/12/23 17:21 Ur Strep pneumoniae Ag Not Detected Preliminary micro results at discharge 02/12/23 07:58 Blood Culture - Preliminary Blood - Venous No growth after 48 hours. 02/12/23 07:45 Blood Culture - Preliminary Blood - Venous No growth after 48 hours. Discharge Plan Discharge Anticipated Discharge Date/Time: 02/16/23 09:12 Patient Disposition: Home, Self-Care Discharge Diagnosis: Pneumonia Referrals: Terese Rivera MD [Primary Care Provider] - 1 Week Discharge Medications: New doxycycline hyclate 100 mg tablet 100 mg PO BID 5 Days Qty: 10 0RF Continued celecoxib 200 mg capsule 200 mg PO BID Hold Instructions: Resume on 01/29/23. latanoprost 0.005 % drops 1 drp ophthalmic (eye) DAILY gabapentin 600 mg tablet 600 mg PO TID clonazepam 1 mg tablet 1 mg PO DAILY amlodipine 5 mg tablet 5 mg PO DAILY tramadol 50 mg tablet 50 mg PO DAILY PRN (Reason: Pain) risperidone 2 mg tablet 2 mg PO BEDTIME mirtazapine 30 mg tablet 60 mg PO BEDTIME propranolol 120 mg capsule,extended release 24 hr 120 mg PO DAILY Hold Instructions: Resume on 03/09/23. fluticasone propionate [Flovent HFA] 110 mcg/actuation HFA aerosol inhaler 1 puff INHALATION BID Biktarvy 50-200-25 mg tablet 1 tab PO DAILY ibuprofen 800 mg tablet 800 mg PO Q8H PRN (Reason: pain) ascorbic acid (vitamin C) 250 mg tablet 250 mg PO QAM diphenhydramine HCl [Banophen] 25 mg tablet 50 mg PO BEDTIME PRN (Reason: Sleep) albuterol sulfate 90 mcg/actuation HFA aerosol inhaler 2 puff inhalation Q6H PRN (Reason: wheezing) fluticasone propion-salmeterol 115-21 mcg/actuation HFA aerosol inhaler 2 puff inhalation BID ferrous gluconate 324 mg (38 mg iron) tablet 324 mg PO QAM Discharge Orders: Discharge Order (Routine); Ordered 02/16/23 Ordered By: Gregg Whitaker Diet: Advance to usual diet Activity on Discharge: As tolerated Stand Alone Forms: Patient Portal Discharge page Care Plan Goals: Recovery from his pneumonia sepsis. Health Concerns: HIV Pneumonia Sepsis Plan of Treatment: Take doxycycline as recommended and follow up with her primary care within a week. Assessment: as above
--- NOTE | 2023-02-16 10:34 | MHC.CM.PN ---
cm met w/pt to deliver discharge IMM 02/16/23, pt reports he would like [facility] [place] [place] shuttle for transoprt, cm attempted to arrange however no answer, cm will revisit and pt to d/c at approx 1:30pm, no new services ordered.
[2023-02-16] MEDS: guaiFENesin 200 MG/10 ML 10 ML LIQUID PO (11:19)
[2023-02-16] MEDS: Benzonatate 100 MG CAPSULE PO (11:19)
[2023-02-16 11:51] VITALS: BP 124/84; PULSE 86; RESP 18; TEMP 36.6; O2SAT 94
[2023-02-17 02:14] LABS: IgA 503 mg/dL (47-310); IgG 1305 mg/dL (600-1640); IgM 64 mg/dL (50-300)
[2023-02-18 07:08] LABS: Legionella Ag Urine Not Detected (Not Detected)
== END 2023-02-16 13:39 | disposition home or self-care (01) | DRG 871 ==
LOC: HO.ED 11:17 → HO.EDOVER 12:44 → HO.IMC 19:42
PROVIDERS: Internal Medicine; Physician Assistant; Admitting Provider Physician Assistant; Emergency Provider Emergency Medicine; PCP Student in an Organized Health Care Education/Training Program; Visit Provider Internal Medicine
DX: A41.9 Sepsis, unspecified organism (principal); J18.9 Pneumonia, unspecified organism; J96.01 Acute respiratory failure with hypoxia; I10 Essential (primary) hypertension; J45.40 Moderate persistent asthma, uncomplicated; Z21 Asymptomatic human immunodeficiency virus [HIV] infection status; Z20.822 Contact with and (suspected) exposure to COVID-19; Z88.0 Allergy status to penicillin; Z88.1 Allergy status to other antibiotic agents; Z79.51 Long term (current) use of inhaled steroids; Z79.899 Other long term (current) drug therapy
CPT/HCPCS: 0241U; 36415; 71045; 71275; 80048; 80076; 80202; 81003; 82565; 82784; 83605; 83735; 83880; 84145; 84484; 85025; 85027; 85379; 85610; 87040; 87070; 87205; 87449; 87633; 87899; 93005; 94640; 99285; J0456; J0692; J1650; J1885; J2270; J3371; Q9967

== ENCOUNTER 2023-03-07 13:36 | Outpatient (REF) | payer OTHER, SELFPAY ==
--- NOTE | ~2023-03-07 | MM_ITS ---
EXAMINATION: BONE DENSITOMETRY CLINICAL INDICATION: Compression deformity of vertebra. COMPARISON: None (current study represents initial baseline exam). TECHNIQUE: Using a [employer] DXA System (software version: 13.1) manufactured by [employer], dual-energy x-ray absorptiometry was performed of the lumbar spine and left hip. The images are of good technical quality. Summary results are attached. FINDINGS: LEFT FEMUR, NECK: BMD 0.716 g/cm2, Z-score -1.4, T-score -2.7, osteoporosis. LEFT FEMUR, TOTAL: BMD 0.801 g/cm2, Z-score -1.2, T-score -2.1, osteopenia. AP SPINE L1-L4: BMD 0.681 g/cm2, Z-score -3.5, T-score -4.5, osteoporosis. IDENTIFIED RISK FACTORS: Low calcium intake, history of fracture (adult). HISTORY OF FRACTURE: Ankle. MEDICATIONS: Multivitamin. MM/XR DEXA axial skeleton IMPRESSION: 1. DIAGNOSIS: Osteoporosis based on the lowest T-score value of -4.5 in the lumbar spine applying World Health Organization criteria. 2. 10-YEAR FRACTURE RISK PREDICTION, FRAX: According to the guidelines, FRAX calculation should only be performed on patients in the osteopenia bone density category. Therefore, FRAX was not performed on this patient. 3. Treatment Recommendations: NOF guidelines recommend consideration for treatment in postmenopausal women and men age 50 and older presenting with the following: -A hip or vertebral (clinical or morphometric) fracture. -T-score less than or equal to -2.5 at the femoral neck or spine after appropriate evaluation to exclude secondary causes. -Low bone mass at the hip or spine and a 10-year fracture probability by FRAX of greater than or equal to 3% for hip fracture or greater than or equal to 20% for major osteoporotic fracture based on the [place] adapted WHO algorithm. 4. Other Recommendations: All treatment decisions require clinical judgment and consideration of individual patient factors, including patient preferences, comorbidities, previous drug use, risk factors not captured in the FRAX model (e.g. frailty, falls, vitamin D deficiency, increased bone turnover, interval significant decline in bone density) and possible under or overestimation of fracture risk by FRAX. Additional medical evaluation for secondary cause of low bone mineral density may be appropriate. FUTURE SCAN RECOMMENDATION: People with diagnosed cases of osteoporosis or at high risk for fracture should have regular bone mineral density tests. For patients eligible for Medicare, routine testing is allowed once every 2 years. The testing frequency can be increased to one year for patients who have rapidly progressing disease, those who are receiving or discontinuing medical therapy to restore bone mass, or have additional risk factors.
== END 2023-03-07 13:37 | disposition home or self-care (01) ==
LOC: HO.MAMMO 13:36
PROVIDERS: PCP Student in an Organized Health Care Education/Training Program; Visit Provider Student in an Organized Health Care Education/Training Program
DX: M81.0 Age-related osteoporosis without current pathological fracture (principal); M43.9 Deforming dorsopathy, unspecified; E58 Dietary calcium deficiency
CPT/HCPCS: 77080

== ENCOUNTER 2023-03-27 07:54 | Emergency (ER) | payer OTHER, SELFPAY ==
--- NOTE | ~2023-03-27 | XR_ITS ---
EXAMINATION: XR CHEST CLINICAL INFORMATION: Chest pain COMPARISON: 02/12/2023 chest radiograph and chest CT TECHNIQUE: 2 views of the chest were obtained. FINDINGS: Heart and mediastinum within normal limits. Vascularity is not increased. Patchy right mid and lower opacities seen on previous chest radiograph have resolved. Elevated left hemidiaphragm and atelectasis without significant change. Lungs remain hyper aerated with flattening of the hemidiaphragms. Bones remain demineralized with unchanged mild to moderate compression deformities. XR/XR chest 2V IMPRESSION: Improving right multifocal pneumonia. Persistent left atelectasis/pneumonia.
[2023-03-27 08:06] VITALS: BP 109/75; BP 112/65; PULSE 77; PULSE 78; RESP 16; TEMP 36.6; O2SAT 94; O2SAT 98; BMI 20.8
--- NOTE | 2023-03-27 08:20 | ECG_ITS ---
Test Reason : CHEST PAIN Blood Pressure : / mmHG Vent. Rate : 072 BPM Atrial Rate : 072 BPM P-R Int : 164 ms QRS Dur : 110 ms QT Int : 392 ms P-R-T Axes : 067 066 058 degrees QTc Int : 429 ms Normal sinus rhythm Incomplete right bundle branch block Borderline ECG When compared with ECG of 12-FEB-2023 04:23, Vent. rate has decreased BY 58 BPM Non-specific change in ST segment in Inferior leads Referred By: Generic ED Physician Electronically Signed By:Daniel Keller
--- NOTE | 2023-03-27 08:35 | ED.CHESTPAIN ---
HPI - Chest Pain General Chief Complaint: Chest Pain Stated Complaint: chest pain Time Seen by Provider: 03/27/23 08:22 Source: patient History of Present Illness HPI narrative: 58 year old male patient with history of HIV on HAART regimen, Asthma, atypical pneumonia, lung abscess, Hep C, and Empyema lung, presents today with c/o 2 days of midsternal chest pain and left rib pain. He elicits a recent non productive cough. He denies fevers, chills, body aches, SOB, nausea/vomiting, abdominal pain. Patient states the pain is constant and worse with movement and coughing. MD complaint: chest pain Pertinent past history: asthma Onset (ago): day(s) Timing of current episode: constant Pain radiation: none Severity: moderate Quality: sharp Relieving factors: rest Exacerbating factors: palpation and movement Context: recent illness Treatment prior to arrival: none Related Data Home Medications Medication Instructions Recorded Confirmed amlodipine 5 mg tablet 5 mg PO DAILY 12/30/22 02/12/23 bictegravir 50 mg-emtricitabine 1 tab PO DAILY 12/30/22 02/12/23 200 mg-tenofovir alafenam 25 mg tablet (Biktarvy) celecoxib 200 mg capsule 200 mg PO BID 12/30/22 02/12/23 clonazepam 1 mg tablet 1 mg PO DAILY 12/30/22 02/12/23 fluticasone propionate 110 1 puff inhalation BID 12/30/22 02/12/23 mcg/actuation HFA aerosol inhaler (Flovent HFA) gabapentin 600 mg tablet 600 mg PO TID 12/30/22 02/12/23 latanoprost 0.005 % eye drops 1 drp ophthalmic (eye) DAILY 12/30/22 02/12/23 mirtazapine 30 mg tablet 60 mg PO BEDTIME 12/30/22 02/12/23 propranolol 120 mg capsule,24 120 mg PO DAILY 12/30/22 02/12/23 hr,extended release risperidone 2 mg tablet 2 mg PO BEDTIME 12/30/22 02/12/23 tramadol 50 mg tablet 50 mg PO DAILY PRN Pain 12/30/22 02/12/23 albuterol sulfate 90 mcg/actuation 2 puff inhalation Q6H PRN wheezing 02/12/23 02/12/23 aerosol inhaler ascorbic acid (vitamin C) 250 mg 250 mg PO QAM 02/12/23 02/12/23 tablet diphenhydramine HCl 25 mg tablet 50 mg PO BEDTIME PRN Sleep 02/12/23 02/12/23 (Banophen) ferrous gluconate 324 mg (38 mg 324 mg PO QAM 02/12/23 02/12/23 iron) tablet fluticasone propionate 115 2 puff inhalation BID 02/12/23 02/12/23 mcg-salmeterol 21 mcg/actuation HFA inhaler ibuprofen 800 mg tablet 800 mg PO Q8H PRN pain 02/12/23 02/12/23 Previous Rx's Medication Instructions Recorded doxycycline hyclate 100 mg tablet 100 mg PO BID 5 days #10 tabs 02/16/23 naproxen 500 mg tablet 500 mg PO BID PRN pain #20 tabs 03/27/23 Allergies Allergy/AdvReac Type Severity Reaction Status Date / Time Seasonal Allergies Allergy Intermediate Eye Verified 01/23/23 10:03 Drainage codeine Allergy Mild Rash Verified 02/13/23 08:33 [From Tylenol-Codeine #3] levofloxacin [From Levaquin] Allergy Mild Rash Verified 01/23/23 10:03 metoclopramide [From Reglan] Allergy Mild Rash Verified 01/23/23 10:03 acetaminophen Allergy Unknown Unknown Verified 01/23/23 10:03 [Tylenol-Codeine #3] Penicillins [PENICILLINS] Allergy Unknown Rash Verified 01/23/23 10:03 tramadol [From Ultram] AdvReac Mild Nausea and Verified 01/23/23 10:03 Vomiting ibuprofen [From Motrin] AdvReac Unknown Reflux Verified 02/13/23 08:33 Review of Systems ENT: Reports system reviewed and no additional complaints, except as documented Cardiovascular: Cardiovascular: Reports chest pain and Reports chest pain with activity Respiratory: Respiratory: Denies chest congestion, Reports cough, Denies hemoptysis, Denies excessive phlegm production and Denies wheezing Gastrointestinal: Gastrointestinal: Reports no additional gastrointestinal complaints Genitourinary: Genitourinary: Reports no additional male genitourinary complaints Musculoskeletal: Musculoskeletal: Reports no additional musculoskeletal complaints Integumentary/Breasts: Skin/Breast: Reports system reviewed and no additional complaints, except as docu Neurologic: Reports system reviewed and no additional complaints, except as documented Allergic/Immunologic: Allergic/Immunologic: Denies wheezing PMFSH Past Medical History Medical History Asthma Closed fracture of leg Depression Hemorrhoids Hepatitis C History of empyema of pleura (01/05/23) HIV (human immunodeficiency virus infection) Hypertension Kidney stones Pleuritic chest pain Pneumonia Substance abuse Surgical History H/O hemorrhoidectomy Social History Social History Household Members: None Housing: Apartment Do you presently have visiting nurse or other home services: Yes ([employer]) Alcohol intake: never Patient Tobacco Use Status: Never used Tobacco Second Hand Smoke Exposure: No Advance Directives: Yes Advance Directives on File: Yes Advance Directives Date on File: 04/25/21 service: No Current occupational status: disabled Physical Exam Vital Signs: Vital Signs: Last Vital Signs Temp 97.8 F 03/27/23 08:06 Pulse 77 03/27/23 08:06 Resp 16 03/27/23 08:06 BP 109/75 03/27/23 08:06 Pulse Ox 94 03/27/23 08:06 O2 Del Method Room Air 03/27/23 08:06 BMI result Body Mass Index 20.8 Appearance: Alert. Oriented X3. Patient appears chronically unwell, temporal wasting Head: normocephalic, atraumatic. ENT: Pharynx normal. No tonsillar swelling or exudate. Neck: Normal inspection. Neck supple. CVS: Normal heart rate and rhythm. Pulses normal. Left anterior chest wall tenderness Respiratory: No respiratory distress. Breath sounds normal. Abdomen: Soft and nontender. +BS x4 Skin: Skin warm and dry. Normal skin color. Extremities: 1+ lower extremity edema. No joint swelling. Neuro/psych: Oriented X 3. No motor deficit. Const: Orientation/consciousness: patient oriented x3 Resp: Effort & Inspection: decreased respiratory effort Auscultation: clear to auscultation bilaterally Cardio: Jugular venous distension: no JVD Rate: regular rate Rhythm: regular rhythm Heart sounds: S1 normal heart sound present and S2 normal heart sound present Peripheral pulses: Peripheral pulses 2+ throughout Neuro: General: patient oriented x3 Medications Administered Discontinued Medications Generic Name Dose Route Start Last Admin Trade Name Freq PRN Reason Stop Dose Admin Ketorolac Tromethamine 30 mg 03/27/23 09:20 03/27/23 09:29 Ketorolac Tromethamine 30 Mg/Ml Vial IM 03/27/23 09:21 30 mg ONCE ONE Administration Medical Decision Making Medical Decision Making [facility] Narrative: 58 year old male patient with history of HIV on HAART regimen, Asthma, atypical pneumonia, lung abscess, Hep C, and Empyema lung, presents today with c/o 2 days of midsternal chest pain and left rib pain. Chest X-ray order and showed resolving pneumonia EKG ordered- Normal sinus rhythm, 78 bpm, non specific t wave abnormalities. Troponin was negative chest pain reproducible with movement and palpation. Toradol administered w/ improvement in his pain. Pain most likely musculoskeletal. Heart score is 1. Comfortable discharge home with trial of NSAIDs. Patient will follow-up with primary care doctor. Return precautions were discussed. Stable for discharge home. Differential Diagnosis Differential Diagnoses: The differential diagnosis associated with the presentation includes ACS, Pulmonary embolism, Aortic dissection, Costochondritis Admission/Observation Consideration of admission/observation: Escalation of care including admission/observation considered 58-year-old male with multiple comorbidities and chest pain, considered admission Lab Data [facility] Lab Attestation statement: I reviewed the patient's lab results. Troponin negative, no major metabolic derangement 03/27/23 08:52 03/27/23 08:52 Labs: Lab Results 03/27/23 03/27/23 03/27/23 Range/Units 08:52 08:52 10:20 WBC 2.6 L (4.8-10.8) X10*3/uL RBC 4.32 L (4.60-5.80) X10*6/uL Hgb 12.0 L (14.0-18.0) g/dl Hct 38.0 L (42.0-52.0) % MCV 88.0 (80.0-98.0) fL MCH 27.8 (27.0-33.0) pg MCHC 31.6 (31.0-36.0) g/dl RDW 15.9 (11.0-16.0) % Plt Count 235 (160-400) X10*3/uL MPV 10.6 (9.4-12.4) fL Absolute Nucleated RBC 0.000 (0.0-0.012) X10*3/uL Nucleated RBC % (auto) 0.0 (0.0-0.2) /100WBC Sodium 141 (135-145) mmol/L Potassium 4.2 (3.3-5.1) mmol/L Chloride 108 (96-108) mmol/L Carbon Dioxide 24 (22-29) mmol/L Anion Gap 13 (12-20) BUN 10 (9-16) mg/dL Creatinine 0.90 (0.5-1.4) mg/dL Estim Creat Clear Calc 68.7 Estimated GFR > 60 Random Glucose 75 (60-115) mg/dL Calcium 9.1 D (8.4-10.2) mg/dL Magnesium 2.1 (1.6-2.6) mg/dL Total Bilirubin 0.5 (0.0-1.0) mg/dL Direct Bilirubin 0.2 (0.0-0.5) mg/dL AST 17 (5-37) U/L ALT 15 (0-40) U/L Alkaline Phosphatase 55 (39-117) U/L Troponin I High Sens < 2.7 (<3.5-35.0) ng/L Total Protein 7.3 (6.5-8.0) g/dL Albumin 3.9 (3.5-5.0) g/dL Independent Interpretation I performed an independent interpretation of an: EKG and Plain X-Ray Interpretation: Chest x-ray showing resolving pneumonia, no focal infiltrate EKG with normal sinus rhythm, incomplete bundle branch block, ventricular rate 72 beats per minute, minimal, [address]-elevation in V1 and V2 only, no reciprocal changes Radiology Impression Discussion of test interpretation with radiology: I have reviewed the radiologist's reading. Radiologist Impression: Impression: Heart and mediastinum within normal limits. Vascularity is not increased. Patchy right mid and lower opacities seen on previous chest radiograph have resolved. Elevated left hemidiaphragm and atelectasis without significant change. Lungs remain hyper aerated with flattening of the hemidiaphragms. Bones remain demineralized with unchanged mild to moderate compression deformities. External Record Review External record reviewed: Outpatient record, Prior outpatient labs and Prior outpatient radiology Prescription Management I considered prescription management with: Pain Medication Chronic Conditions Patient?s care impacted by: Hypertension and Other (HIV) Social Determinants Patient?s care significantly limited by Social Determinants of Health including: Other Social Determinant of Health Scores Heart Score History: -0- slightly suspicious ECG: -0- normal Age: -1- >45 - <65 Risk factory: -1- 1 or 2 risk factors Troponin: -0- < or = normal limit Score: 2 Risk: 1.7% Critical Care Time Critical Care Time Critical Care Time: No Discharge Plan Discharge Clinical Impression: Costalchondritis Patient Disposition: Home, Self-Care Instructions: Costochondritis (ED) Additional Instructions: Your chest x-ray showed improving and resolving pneumonia. Your lab workup showed no stress on her heart. Your pain is most likely muscular. Recommend rest, no strenuous activity. Recommend trial of the prescribed anti-inflammatory medication. Follow-up with primary care doctor If you develop new or worsening symptoms call 911 or come back to the ER for further evaluation. Prescriptions: New naproxen 500 mg tablet 500 mg PO BID PRN (Reason: pain) Qty: 20 0RF No Action celecoxib 200 mg capsule 200 mg PO BID Hold Instructions: Resume on 01/29/23. latanoprost 0.005 % drops 1 drp ophthalmic (eye) DAILY gabapentin 600 mg tablet 600 mg PO TID clonazepam 1 mg tablet 1 mg PO DAILY amlodipine 5 mg tablet 5 mg PO DAILY tramadol 50 mg tablet 50 mg PO DAILY PRN (Reason: Pain) risperidone 2 mg tablet 2 mg PO BEDTIME mirtazapine 30 mg tablet 60 mg PO BEDTIME propranolol 120 mg capsule,extended release 24 hr 120 mg PO DAILY Hold Instructions: Resume on 03/09/23. fluticasone propionate [Flovent HFA] 110 mcg/actuation HFA aerosol inhaler 1 puff INHALATION BID Biktarvy 50-200-25 mg tablet 1 tab PO DAILY ibuprofen 800 mg tablet 800 mg PO Q8H PRN (Reason: pain) ascorbic acid (vitamin C) 250 mg tablet 250 mg PO QAM diphenhydramine HCl [Banophen] 25 mg tablet 50 mg PO BEDTIME PRN (Reason: Sleep) albuterol sulfate 90 mcg/actuation HFA aerosol inhaler 2 puff inhalation Q6H PRN (Reason: wheezing) fluticasone propion-salmeterol 115-21 mcg/actuation HFA aerosol inhaler 2 puff inhalation BID ferrous gluconate 324 mg (38 mg iron) tablet 324 mg PO QAM doxycycline hyclate 100 mg tablet 100 mg PO BID 5 Days Qty: 10 0RF Interventions: ED Discharge Assessment Last Done: 03/27/23 11:42 Discharge Date/Time: 03/27/23 11:43
[2023-03-27 09:12] LABS: Alanine Aminotransferase 15 U/L (0-40); Albumin Level 3.9 g/dL (3.5-5.0); Alkaline Phosphatase 55 U/L (39-117); Anion Gap 13 (12-20); Aspartate Amino Transferase 17 U/L (5-37); Bilirubin Direct 0.2 mg/dL (0.0-0.5); Bilirubin Total 0.5 mg/dL (0.0-1.0); Blood Urea Nitrogen 10 mg/dL (9-16); Calcium 9.1 mg/dL (8.4-10.2); Carbon Dioxide 24 mmol/L (22-29); Chloride 108 mmol/L (96-108); Creatinine Clr Calc Pharmacy 68.7; Estimated Glomerular Filt Rate > 60; Glucose Random 75 mg/dL (60-115); Magnesium 2.1 mg/dL (1.6-2.6); Potassium 4.2 mmol/L (3.3-5.1); Sodium 141 mmol/L (135-145); Total Protein 7.3 g/dL (6.5-8.0)
[2023-03-27 09:19] LABS: Troponin-I High Sensitivity < 2.7 ng/L (<3.5-35.0)
[2023-03-27] MEDS: Ketorolac Tromethamine 30 MG/ML VIAL IM (09:29)
[2023-03-27 10:26] LABS: Mean Corpuscular HGB Conc 31.6 g/dl (31.0-36.0); Mean Corpuscular Hemoglobin 27.8 pg (27.0-33.0); Mean Platelet Volume 10.6 fL (9.4-12.4); Platelet Count 235 X10*3/uL (160-400); Red Blood Count 4.32 X10*6/uL (4.60-5.80); Red Cell Distribution Width 15.9 % (11.0-16.0); White Blood Count 2.6 X10*3/uL (4.8-10.8)
== END 2023-03-27 11:43 | disposition home or self-care (01) ==
PROVIDERS: Emergency Provider Emergency Medicine
DX: R07.89 Other chest pain (principal); M94.0 Chondrocostal junction syndrome [Tietze]; J45.909 Unspecified asthma, uncomplicated; Z79.899 Other long term (current) drug therapy
CPT/HCPCS: 36415; 71046; 80048; 80076; 83735; 84484; 85027; 93005; 96372; 99283; 99284; J1885

== ENCOUNTER → 2023-03-27 08:20 | Outpatient (BNV) | payer OTHER, SELFPAY | PROVIDERS: Emergency Provider Emergency Medicine; Visit Provider Internal Medicine Cardiovascular Disease | DX: R07.9 Chest pain, unspecified (principal) | CPT/HCPCS: 93010 ==

== ENCOUNTER 2023-04-04 09:32 | Outpatient (REF) | payer OTHER, SELFPAY ==
[2023-04-04 11:25] LABS: MANUAL DIFF FLAG NO
[2023-04-04 11:36] LABS: Basophils Percent Auto 1.3 % (0-2); Eosinophils Percent Auto 1.3 % (0-4); Hematocrit 40.3 % (42.0-52.0); Hemoglobin 12.6 g/dl (14.0-18.0); Lymphocytes Absolute Auto 1.1 X10*3/uL (1.2-4.9); Lymphocytes Percent Auto 37.3 % (20-40); Mean Corpuscular HGB Conc 31.3 g/dl (31.0-36.0); Mean Corpuscular Hemoglobin 27.8 pg (27.0-33.0); Mean Corpuscular Volume 88.8 fL (80.0-98.0); Mean Platelet Volume 12.3 fL (9.4-12.4); Monocytes Absolute Auto 0.4 X10*3/uL (0.1-1.2); Monocytes Percent Auto 14.3 % (2-11); Neutrophils Absolute Auto 1.4 x10*3/uL (2.0-8.3); Neutrophils Percent Auto 45.8 % (45-73); Platelet Count 235 X10*3/uL (160-400); Red Blood Count 4.54 X10*6/uL (4.60-5.80); Red Cell Distribution Width 16.2 % (11.0-16.0)
[2023-04-04 12:15] LABS: Alanine Aminotransferase 15 U/L (0-40); Alkaline Phosphatase 54 U/L (39-117); Anion Gap 10 (12-20); Aspartate Amino Transferase 15 U/L (5-37); Bilirubin Total 0.3 mg/dL (0.0-1.0); Blood Urea Nitrogen 11 mg/dL (9-16); Calcium 8.9 mg/dL (8.4-10.2); Carbon Dioxide 28 mmol/L (22-29); Chloride 109 mmol/L (96-108); Estimated Glomerular Filt Rate > 60; Glucose Random 74 mg/dL (60-115); Iron 29 mcg/dL (45-160); Percent Iron Saturation 9 % (15-50); Potassium 3.8 mmol/L (3.3-5.1); Sodium 143 mmol/L (135-145); Total Iron Binding Capacity 322 mcg/dL (228-428); Total Protein 7.4 g/dL (6.5-8.0); Unsaturated Iron Binding 293 ug/dL
[2023-04-04 12:34] LABS: Cortisol Random 8.2 ug/dL
[2023-04-04 12:35] LABS: Ferritin 22 ng/mL (20-250); Vitamin D 25-OH Total 45.8 ng/mL (>30)
[2023-04-05 17:02] LABS: PTHI 30 pg/mL (16-77)
[2023-04-11 13:17] LABS: Aldosterone/Renin Ratio 5.5 Ratio (0.9-28.9); Plasma Renin Activity 0.55 ng/mL/h (0.25-5.82)
[2023-04-12 13:43] LABS: Metanephrine, Free 63 pg/mL (<=57); Normetanephrines, Free 162 pg/mL (<=148); Total Metanephrine, Free 225 pg/mL (<=205)
== END 2023-04-04 09:33 | disposition home or self-care (01) ==
LOC: HO.HHCL 09:32
PROVIDERS: Visit Provider Student in an Organized Health Care Education/Training Program
DX: E27.8 Other specified disorders of adrenal gland (principal); M81.0 Age-related osteoporosis without current pathological fracture; D64.9 Anemia, unspecified
CPT/HCPCS: 36415; 80053; 82088; 82306; 82533; 82728; 83540; 83835; 83970; 85025

== ENCOUNTER 2023-04-06 13:35 | Outpatient (REF) | payer OTHER, SELFPAY ==
[2023-04-11 23:08] LABS: Metanephrine, Free 24U 160 mcg/24 h (90-315); Normetanephrine, Free 24U 310 mcg/24 h (122-676); Total Metanephrine, Free 24U 470 mcg/24 h (224-832); Total Volume 24U 650 mL
== END 2023-04-06 13:36 | disposition home or self-care (01) ==
LOC: HO.LNP 13:35
PROVIDERS: Visit Provider Student in an Organized Health Care Education/Training Program
DX: E27.8 Other specified disorders of adrenal gland (principal)
CPT/HCPCS: 83835

== ENCOUNTER 2023-05-31 16:08 | Outpatient (REF) | payer OTHER, SELFPAY ==
[2023-05-31 16:24] LABS: MANUAL DIFF FLAG NO
[2023-05-31 17:26] LABS: Basophils Absolute Auto 0.1 X10*3/uL (0.0-0.2); Eosinophils Absolute Auto 0.2 X10*3/uL (0.0-0.4); Hematocrit 42.6 % (42.0-52.0); Hemoglobin 13.5 g/dl (14.0-18.0); Imm Gran Abs Auto 0.01 X10*3/uL (0.00-0.03); Imm Gran Pct Auto 0.2 % (0.0-0.4); Lymphocytes Absolute Auto 2.2 X10*3/uL (1.2-4.9); Lymphocytes Percent Auto 35.6 % (20-40); Mean Corpuscular HGB Conc 31.7 g/dl (31.0-36.0); Mean Corpuscular Hemoglobin 28.9 pg (27.0-33.0); Mean Corpuscular Volume 91.2 fL (80.0-98.0); Mean Platelet Volume 11.8 fL (9.4-12.4); Monocytes Absolute Auto 0.5 X10*3/uL (0.1-1.2); Monocytes Percent Auto 8.9 % (2-11); Neutrophils Absolute Auto 3.1 x10*3/uL (2.0-8.3); Neutrophils Percent Auto 51.3 % (45-73); Platelet Count 302 X10*3/uL (160-400); Red Blood Count 4.67 X10*6/uL (4.60-5.80); Red Cell Distribution Width 17.3 % (11.0-16.0); White Blood Count 6.1 X10*3/uL (4.8-10.8)
[2023-05-31 17:47] LABS: Alanine Aminotransferase 27 U/L (0-40); Anion Gap 14 (12-20); Aspartate Amino Transferase 20 U/L (5-37); Carbon Dioxide 29 mmol/L (22-29); Chloride 106 mmol/L (96-108); Estimated Glomerular Filt Rate > 60; Sodium 145 mmol/L (135-145)
[2023-06-01 03:34] LABS: CT PCR NOT DETECTED (Not Detect.); NG PCR NOT DETECTED (Not Detect.)
[2023-06-01 08:07] LABS: Syphilis Screen Nonreactive (Nonreactive)
[2023-06-02 16:23] LABS: TS Negative Control Passed; TS Panel A 0; TS Panel B 0; TS Positive Control Passed; TSpotTB Negative (Negative)
[2023-06-04 12:04] LABS: HCV Log PCR <1.18 NOT DETECTED Log IU/mL (NOT DETECTED); HepC Viral Load <15 NOT DETECTED IU/mL (NOT DETECTED)
[2023-06-05 13:19] LABS: HIV RNA PCR Qn Copies NOT DETECTED copies/mL (NOT DETECTED); HIV RNA PCR Qn Log Copies NOT DETECTED (NOT DETECTED)
== END 2023-05-31 16:09 | disposition home or self-care (01) ==
LOC: HO.LAB 16:08
PROVIDERS: PCP Student in an Organized Health Care Education/Training Program; Visit Provider Internal Medicine Infectious Disease
DX: B20 Human immunodeficiency virus [HIV] disease (principal)
CPT/HCPCS: 0353U; 80051; 82565; 84450; 84460; 85025; 86481; 86780; 87522; 87536

== ENCOUNTER 2023-06-01 14:20 | Emergency (ER) | payer OTHER, SELFPAY ==
--- NOTE | ~2023-06-01 | XR_ITS ---
EXAMINATION: XR CHEST CLINICAL INFORMATION: Cough and chest pain. COMPARISON: 06/05/2023 TECHNIQUE: Frontal view of the chest was obtained. FINDINGS: The lungs are well expanded. No focal consolidation. Minimal atelectasis versus scarring at the left lung base. No pleural effusion. Cardiac silhouette is unchanged. XR/XR chest 1V IMPRESSION: No acute abnormality.
--- NOTE | ~2023-06-01 | XR_ITS ---
EXAMINATION: XR CHEST CLINICAL INFORMATION: Cough. COMPARISON: 06/01/2023 TECHNIQUE: 2 views of the chest were obtained. FINDINGS: The cardiomediastinal silhouette is within normal limits and stable. There appears to be minimal scarring or subsegmental atelectasis at the left lung base. The lungs are otherwise clear. The bony structures are osteopenic. Soft tissues are unremarkable. XR/XR chest 2V IMPRESSION: There appears to be minimal atelectasis and/or scarring at the left lung base similar to previous. No evidence for active cardiopulmonary disease.
--- NOTE | ~2023-06-01 | XR_ITS ---
EXAMINATION: XR CHEST CLINICAL INFORMATION: Chest pain. COMPARISON: Chest radiograph 03/27/2023. TECHNIQUE: 2 views of the chest were obtained. FINDINGS: Normal heart size. Redemonstration of surgical clips projecting over the left hilar region. Mild streaky opacities in the left lung base. No focal infiltrate. No pleural effusion or pneumothorax. Subtle chronic left posterior rib deformities, for instance as identified in the third rib. No acute osseous findings. XR/XR chest 2V IMPRESSION: 1. Mild subsegmental atelectasis in the left lung base. 2. No focal consolidation. 3. No pleural effusion or pneumothorax.
[2023-06-01 14:23] VITALS: BP 112/72; PULSE 70; O2SAT 98
[2023-06-01 14:28] VITALS: BP 124/88; PULSE 78; RESP 18; TEMP 36.7; O2SAT 99; BMI 20.3
--- NOTE | 2023-06-01 14:29 | ECG_ITS ---
Test Reason : cp Blood Pressure : / mmHG Vent. Rate : 077 BPM Atrial Rate : 077 BPM P-R Int : 146 ms QRS Dur : 094 ms QT Int : 374 ms P-R-T Axes : 082 066 042 degrees QTc Int : 423 ms Normal sinus rhythm T wave abnormality, consider anterior ischemia Abnormal ECG When compared with ECG of 27-MAR-2023 08:35, ST no longer elevated in Anterior leads T wave inversion now evident in Anterior leads Referred By: Colleen Roa Electronically Signed By:RUBY ISLAS
--- NOTE | 2023-06-01 14:31 | ED_ITS ---
HPI - General Adult General Chief complaint: Chest Pain Stated complaint: chest pains and weakness, per ems Time Seen by Provider: 06/01/23 15:50 Source: patient Mode of arrival: ambulatory Limitations: no limitations History of Present Illness HPI narrative: patient presents for 3 days of chest pain and low energy. Not eating Onset (ago): day(s) Related Data Home Medications Medication Instructions Recorded Confirmed amlodipine 5 mg tablet 5 mg PO DAILY 12/30/22 06/01/23 bictegravir 50 mg-emtricitabine 1 tab PO DAILY 12/30/22 06/01/23 200 mg-tenofovir alafenam 25 mg tablet (Biktarvy) celecoxib 200 mg capsule 200 mg PO BID 12/30/22 06/01/23 clonazepam 1 mg tablet 1 mg PO DAILY 12/30/22 06/01/23 gabapentin 600 mg tablet 600 mg PO TID 12/30/22 06/01/23 latanoprost 0.005 % eye drops 1 drp ophthalmic (eye) DAILY 12/30/22 06/01/23 mirtazapine 30 mg tablet 60 mg PO BEDTIME 12/30/22 06/01/23 propranolol 120 mg capsule,24 120 mg PO DAILY 12/30/22 06/01/23 hr,extended release tramadol 50 mg tablet 50 mg PO DAILY PRN Pain 12/30/22 06/01/23 albuterol sulfate 90 mcg/actuation 2 puff inhalation Q6H PRN wheezing 02/12/23 06/01/23 aerosol inhaler ascorbic acid (vitamin C) 250 mg 250 mg PO QAM 02/12/23 06/01/23 tablet diphenhydramine HCl 25 mg tablet 50 mg PO BEDTIME PRN Sleep 02/12/23 06/01/23 (Banophen) ferrous gluconate 324 mg (38 mg 324 mg PO QAM 02/12/23 06/01/23 iron) tablet ibuprofen 800 mg tablet 800 mg PO Q8H PRN pain 02/12/23 06/01/23 brimonidine 0.2 %-timolol 0.5 % 1 drp ophthalmic (eye) BID 06/01/23 06/01/23 eye drops fluticasone propionate 230 2 puff inhalation BID 06/01/23 06/01/23 mcg-salmeterol 21 mcg/actuation HFA inhaler (Advair HFA) risperidone 3 mg tablet 3 mg PO BEDTIME 06/01/23 06/01/23 Previous Rx's Medication Instructions Recorded naproxen 500 mg tablet 500 mg PO BID PRN pain #20 tabs 03/27/23 Allergies Allergy/AdvReac Type Severity Reaction Status Date / Time Seasonal Allergies Allergy Intermediate Eye Verified 01/23/23 10:03 Drainage codeine Allergy Mild Rash Verified 02/13/23 08:33 [From Tylenol-Codeine #3] levofloxacin [From Levaquin] Allergy Mild Rash Verified 01/23/23 10:03 metoclopramide [From Reglan] Allergy Mild Rash Verified 01/23/23 10:03 acetaminophen Allergy Unknown Unknown Verified 01/23/23 10:03 [Tylenol-Codeine #3] Penicillins [PENICILLINS] Allergy Unknown Rash Verified 01/23/23 10:03 tramadol [From Ultram] AdvReac Mild Nausea and Verified 01/23/23 10:03 Vomiting ibuprofen [From Motrin] AdvReac Unknown Reflux Verified 02/13/23 08:33 Review of Systems 2 Review of Systems: Yes all other systems are reviewed and are negative Neurologic: Denies Sensory deficit (Neuro) [facility] Past Medical History Medical History History of empyema of pleura (01/05/23) Hypertension Closed fracture of leg Hepatitis C Kidney stones Pleuritic chest pain Pneumonia Substance abuse Hemorrhoids Depression HIV (human immunodeficiency virus infection) Asthma Surgical History H/O hemorrhoidectomy Social History Social History Household Members: None Housing: Apartment Do you presently have visiting nurse or other home services: 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[employer]) Alcohol intake: never Patient Tobacco Use Status: Never used Tobacco Second Hand Smoke Exposure: No Advance Directives: Yes Advance Directives on File: Yes Advance Directives Date on File: 04/25/21 service: No Current occupational status: disabled Physical Exam ED Vital Signs: Vital Signs - 24 hr 06/05/23 21:03 06/06/23 06:00 06/06/23 14:53 Temperature 98.7 F 98.0 F Pulse Rate 93 100 61 Respiratory Rate 18 15 19 Blood Pressure 149/85 H 130/89 109/71 Pulse Oximetry 93 94 94 Oxygen Delivery Method Room Air Room Air Room Air BMI result Body Mass Index 20.3 Const Other: cachectic dry Orientation/consciousness: oriented to person and patient oriented x3 Limitations: no limitations HENMT Other: oral candidiasis in his mouth Head: Yes normal to inspection Ears: external ears normal General nose exam: Normal external nose present Throat: Yes posterior oropharynx normal Eyes General: appearance normal, both eyes and all related structures Neck Neck: Yes normal visual inspection Chest Chest palpation & inspection: normal inspection of the chest Resp Auscultation: clear to auscultation bilaterally Cardio Jugular venous distension: no JVD Rate: regular rate Rhythm: regular rhythm Heart sounds: S1 normal heart sound present and S2 normal heart sound present GI Inspection: Yes normal to inspection Palpation (GI): Soft to palpation, nontender and No hepatosplenomegaly present Auscultation: normal bowel sounds General: Yes no CVA tenderness Back/Spine/Pelvis Back: no CVA tenderness Skin General skin exam: no rashes or lesions noted Neuro General: oriented to person and patient oriented x3 Cranial nerves: Yes CN's II-XII intact bilaterally Motor exam (neuro): 5/5 motor strength present throughout Sensory Exam: No Sensory deficit (Neuro) Extrem General: Yes normal to inspection Psych Appearance: grossly normal Course Course Course Narrative: This is an RME: Additional HPI, ROS, PE not included below will be deferred to primary provider. 58 y o male PMH Hep C, HIV, mild persistent asthma, previous lung abscess presenting for evaluation of central substernal chest pain x3 days. Reporting associated shortness of breath. Reporting general weakness. Denies N/V/D, fever, chills, abdominal pain, dizziness. Plan: EKG, labs Reevaluation(s) Reevaluation #1: Patient appears too weak to care for himself, dry dehydrated and not eating. Physician observation: started at 8pm, reason is to continue hydration while he gets a physical therapy consultaion to see if it is safe for him to return home Time: 20:16 Reevaluation #2: Physician observation continued. Patient had no acute overnight events. Home medications have been reordered. Physical therapy evaluation is pending. Case Management consult placed in the event he requires home PT versus short-term rehab. Will continue to monitor. Time: 08:28 Reevaluation #3: Physician observation continued overnight. No overnight events reported by nursing. Vital signs stable. PT recommending short-term rehab. Time: 07:27 Additional Reevaluation(s): 06/04/23--407-- Physician observation continued. Vital signs stable. Labs and imaging reviewed. Patient was evaluated by speech and Swallow and noted to have severe oral dysphagia. Recommended NPO with re-evaluation tomorrow morning. medications can be administered with small amount of pureed solids and provide patient enough time to swallow/ clear oral cavity before additional bites if needed. NPO order placed. Maintenance fluid added. Patient continues to complain of chest pain. P.r.n. Toradol ordered. Case Management continues to follow for discharge needs 06/04/23--804--physician observation continued. Vital signs stable. Speech and swallow will re-evaluate patient today. Case management continues to follow. Pending their recommendations 06/06/23 - patient was complaining of chest pain w/ coughing today. XR CHEST CLINICAL INFORMATION: Cough and chest pain. COMPARISON: 06/05/2023 FINDINGS: The lungs are well expanded. No focal consolidation. Minimal atelectasis versus scarring at the left lung base. No pleural effusion. Cardiac silhouette is unchanged. XR/XR chest 1V IMPRESSION: No acute abnormality. EKG also performed showing normal sinus rhythm. HR 68 bpm, no significant change from prior. he has been on a dysphagia diet and tolerating it well. he has been declining short term rehab. comfortable with discharge home with NDD 2 diet with nectar thick liquids. encouraged f/u with PCP SOL. Medications Administered Generic Name Dose Route Start Last Admin Trade Name Freq PRN Reason Stop Dose Admin Amlodipine Besylate 5 mg 06/02/23 09:00 06/06/23 08:11 Amlodipine Besylate 5 Mg Tablet PO 5 mg DAILY MICHAEL Administration Protocol Benzonatate 100 mg 06/05/23 21:30 06/06/23 08:17 Benzonatate 100 Mg Capsule PO 100 mg TID MICHAEL Administration Bictegravir/Emtricitabine/Tenofovir 1 tab 06/02/23 09:00 06/06/23 08:14 Bictegrav/Emtricit/Tenofov Ala Tablet PO 1 tab DAILY MICHAEL Administration Celecoxib 200 mg 06/01/23 22:00 06/06/23 08:16 Celecoxib 200 Mg Capsule PO 200 mg BID MICHAEL Administration Clonazepam 1 mg 06/02/23 09:00 06/06/23 08:11 Clonazepam 1 Mg Tablet PO 1 mg DAILY MICHAEL Administration Diphenhydramine HCl 50 mg 06/01/23 21:57 06/05/23 20:20 Diphenhydramine Hcl 25 Mg Capsule PO 50 mg BEDTIME PRN Administration Sleep Ferrous Sulfate 324 mg 06/02/23 09:00 06/06/23 08:16 Ferrous Sulfate 324 Mg Tablet. PO 324 mg DAILY MICHAEL Administration Fluticasone/Vilanterol 1 puff 06/02/23 08:00 06/06/23 09:12 Fluticasone/Vilanterol 200/25 Blst.W.Dev INHALE 1 puff RDAILY MICHAEL Administration Gabapentin 600 mg 06/01/23 22:00 06/06/23 08:18 Gabapentin 600 Mg Tablet PO 600 mg TID MICHAEL Administration Ketorolac Tromethamine 15 mg 06/04/23 14:06 06/05/23 20:20 Ketorolac Tromethamine 15 Mg/Ml Vial IM 15 mg Q6H PRN Administration Pain, Moderate(Pain Scale 4-6) Latanoprost 1 drop 06/02/23 21:00 06/05/23 20:11 Latanoprost 0.005 % Ophth Carol 2.5 Ml Drops EYE-BOTH 1 drop BEDTIME MICHAEL Administration Mirtazapine 60 mg 06/01/23 22:00 06/05/23 20:11 Mirtazapine 30 Mg Tablet PO 60 mg BEDTIME MICHAEL Administration Propranolol HCl 120 mg 06/02/23 09:00 06/06/23 08:11 Propranolol Hcl La 60 Mg Cap.Sa.24h PO 120 mg DAILY MICHAEL Administration Protocol Risperidone 3 mg 06/01/23 22:15 06/05/23 20:11 Risperidone 3 Mg Tablet PO 3 mg BEDTIME MICHAEL Administration Discontinued Medications Generic Name Dose Route Start Last Admin Trade Name Freq PRN Reason Stop Dose Admin Sodium Chloride 1,000 mls @ 999 mls/hr 06/01/23 16:45 06/01/23 20:09 Ns IVCONT 06/01/23 18:45 Infused .Q1H1M MICHAEL Infusion Sodium Chloride 1,000 mls @ 75 mls/hr 06/04/23 14:15 06/06/23 06:12 Ns IVCONT 75 mls/hr .[id number] MICHAEL Administration Ketorolac Tromethamine 15 mg 06/01/23 20:06 06/01/23 20:09 Ketorolac Tromethamine 15 Mg/Ml Vial IVPUSH 06/01/23 20:07 15 mg ONCE ONE Administration Nystatin 400,000 unit 06/01/23 16:34 06/01/23 17:08 Nystatin Oral Susp 500,000 Unit/5 Ml Oral.Susp BUCCAL 06/01/23 16:35 400,000 unit ONCE ONE Administration Protocol Ondansetron HCl 4 mg 06/01/23 15:37 06/01/23 15:42 Ondansetron Hcl 4 Mg/2 Ml Vial IVPUSH 06/01/23 15:38 4 mg ONCE ONE Administration Medical Decision Making Differential Diagnosis Differential Diagnoses: The differential diagnosis associated with the presentation includes (pneumonia, cardiac ischemia, dehydration, esophagitis, starvation, HIV) Admission/Observation Consideration of admission/observation: Escalation of care including admission/observation considered (upon arrival patient considered for admission) Consult Healthcare Provider Management of the patient was discussed with: [employer] Advanced Operator Maintainer (physical therapy) Lab Data 06/01/23 14:36 06/01/23 14:36 Labs: Lab Results 06/01/23 06/02/23 06/03/23 Range/Units 14:36 05:20 15:48 WBC 3.3 L (4.8-10.8) X10*3/uL RBC 4.36 L (4.60-5.80) X10*6/uL Hgb 12.8 L (14.0-18.0) g/dl Hct 39.4 L (42.0-52.0) % MCV 90.4 (80.0-98.0) fL MCH 29.4 (27.0-33.0) pg MCHC 32.5 (31.0-36.0) g/dl RDW 17.0 H (11.0-16.0) % Plt Count 253 (160-400) X10*3/uL MPV 11.6 (9.4-12.4) fL Immature Gran % (Auto) 0.0 (0.0-0.4) % Neut % (Auto) 30.5 L (45-73) % Lymph % (Auto) 51.7 H (20-40) % [place] % (Auto) 13.0 H (2-11) % Eos % (Auto) 3.6 (0-4) % Baso % (Auto) 1.2 (0-2) % Lymph # (Auto) 1.7 (1.2-4.9) X10*3/uL [place] # (Auto) 0.4 (0.1-1.2) X10*3/uL Eos # (Auto) 0.1 (0.0-0.4) X10*3/uL Baso # (Auto) 0.0 (0.0-0.2) X10*3/uL Abs Immat Gran (auto) 0.00 (0.00-0.03) X10*3/uL Absolute Neuts (auto) 1.0 L (2.0-8.3) x10*3/uL Absolute Nucleated RBC 0.000 (0.0-0.012) X10*3/uL Nucleated RBC % (auto) 0.0 (0.0-0.2) /100WBC Sodium 145 (135-145) mmol/L Potassium 3.9 (3.3-5.1) mmol/L Chloride 108 (96-108) mmol/L Carbon Dioxide 25 (22-29) mmol/L Anion Gap 16 (12-20) BUN 13 (9-16) mg/dL Creatinine 0.86 (0.5-1.4) mg/dL Estim Creat Clear Calc 74.7 Estimated GFR > 60 Random Glucose 85 (60-115) mg/dL Calcium 9.5 D (8.4-10.2) mg/dL Magnesium 2.2 (1.6-2.6) mg/dL Total Bilirubin 0.4 (0.0-1.0) mg/dL AST 20 (5-37) U/L ALT 25 (0-40) U/L Alkaline Phosphatase 48 (39-117) U/L Troponin I High Sens < 2.7 (<3.5-35.0) ng/L Total Protein 7.5 (6.5-8.0) g/dL Albumin 4.2 (3.5-5.0) g/dL Urine Color Yellow Urine Appearance Clear Urine pH 7.5 (5.0-9.0) Ur Specific [place] 1.010 (1.005-1.025) Urine Protein Negative (Neg-Trace) mg/dL Urine Glucose (UA) Negative (Negative) mg/dL Urine Ketones Negative (Negative) mg/dL Urine Blood Negative (Negative) Urine Nitrite Negative (Negative) Ur Leukocyte Esterase Negative (Negative) COVID-19 (TAMMIE) Negative (Negative) COVID-19 Clin Com See Note Independent Interpretation I performed an independent interpretation of an: EKG (sinus 80, flipped ts V1- /v3) and Plain X-Ray (CXR no infiltrate) Independent Historian Clinical information obtained from an independent historian. History obtained from or confirmed by: EMS External Record Review External record reviewed: Outpatient record Prescription Management I considered prescription management with: Antibiotic (considered but no evidence of infection) Chronic Conditions Patient?s care impacted by: Other (HIV) Social Determinants Patient?s care significantly limited by Social Determinants of Health including: Low income Discharge Plan Discharge Clinical Impression: Malnutrition due to starvation, Acute dehydration Dysphagia Qualifiers: Dysphagia type: unspecified Qualified Code(s): R13.10 - Dysphagia, unspecified Patient Disposition: Home, Self-Care Instructions: Dysphagia (ED) Additional Instructions: Speech therapy evaluation completed. Recommending Ground/Mechanically Altered (NDD2) Solids and [place]-Thick Liquids. Medications Whole with Puree such as applesauce You will need to thicken your liquids in order to swallow them safely and not aspirate into your lungs Follow up with your doctor as soon as possible If you develop new or worsening symptoms call 911 or come back to the ER for further evaluation. Prescriptions: No Action celecoxib 200 mg capsule 200 mg PO BID Hold Instructions: Resume on 01/29/23. latanoprost 0.005 % drops 1 drp ophthalmic (eye) DAILY gabapentin 600 mg tablet 600 mg PO TID clonazepam 1 mg tablet 1 mg PO DAILY amlodipine 5 mg tablet 5 mg PO DAILY tramadol 50 mg tablet 50 mg PO DAILY PRN (Reason: Pain) mirtazapine 30 mg tablet 60 mg PO BEDTIME propranolol 120 mg capsule,extended release 24 hr 120 mg PO DAILY Hold Instructions: Resume on 03/09/23. Biktarvy 50-200-25 mg tablet 1 tab PO DAILY ibuprofen 800 mg tablet 800 mg PO Q8H PRN (Reason: pain) ascorbic acid (vitamin C) 250 mg tablet 250 mg PO QAM diphenhydramine HCl [Banophen] 25 mg tablet 50 mg PO BEDTIME PRN (Reason: Sleep) albuterol sulfate 90 mcg/actuation HFA aerosol inhaler 2 puff inhalation Q6H PRN (Reason: wheezing) ferrous gluconate 324 mg (38 mg iron) tablet 324 mg PO QAM naproxen 500 mg tablet 500 mg PO BID PRN (Reason: pain) Qty: 20 0RF fluticasone propion-salmeterol [Advair HFA] 230-21 mcg/actuation HFA aerosol inhaler 2 puff inhalation BID risperidone 3 mg tablet 3 mg PO BEDTIME brimonidine-timolol 0.2-0.5 % drops 1 drp ophthalmic (eye) BID
[2023-06-01 14:44] LABS: MANUAL DIFF FLAG NO
[2023-06-01 14:46] LABS: Basophils Percent Auto 1.2 % (0-2); Eosinophils Absolute Auto 0.1 X10*3/uL (0.0-0.4); Eosinophils Percent Auto 3.6 % (0-4); Hematocrit 39.4 % (42.0-52.0); Hemoglobin 12.8 g/dl (14.0-18.0); Lymphocytes Absolute Auto 1.7 X10*3/uL (1.2-4.9); Lymphocytes Percent Auto 51.7 % (20-40); Mean Corpuscular HGB Conc 32.5 g/dl (31.0-36.0); Mean Corpuscular Hemoglobin 29.4 pg (27.0-33.0); Mean Corpuscular Volume 90.4 fL (80.0-98.0); Mean Platelet Volume 11.6 fL (9.4-12.4); Monocytes Absolute Auto 0.4 X10*3/uL (0.1-1.2); Neutrophils Percent Auto 30.5 % (45-73); Platelet Count 253 X10*3/uL (160-400); Red Blood Count 4.36 X10*6/uL (4.60-5.80); White Blood Count 3.3 X10*3/uL (4.8-10.8)
[2023-06-01 15:00] LABS: Alanine Aminotransferase 25 U/L (0-40); Albumin Level 4.2 g/dL (3.5-5.0); Alkaline Phosphatase 48 U/L (39-117); Anion Gap 16 (12-20); Aspartate Amino Transferase 20 U/L (5-37); Bilirubin Total 0.4 mg/dL (0.0-1.0); Blood Urea Nitrogen 13 mg/dL (9-16); Calcium 9.5 mg/dL (8.4-10.2); Carbon Dioxide 25 mmol/L (22-29); Chloride 108 mmol/L (96-108); Creatinine Clr Calc Pharmacy 74.7; Estimated Glomerular Filt Rate > 60; Glucose Random 85 mg/dL (60-115); Magnesium 2.2 mg/dL (1.6-2.6); Potassium 3.9 mmol/L (3.3-5.1); Sodium 145 mmol/L (135-145); Total Protein 7.5 g/dL (6.5-8.0)
[2023-06-01 15:08] LABS: Troponin-I High Sensitivity < 2.7 ng/L (<3.5-35.0)
[2023-06-01 15:22] VITALS: BP 112/84; PULSE 75; RESP 14; TEMP 36.4; O2SAT 98
[2023-06-01] MEDS: ondansetron HCL 4 MG/2 ML VIAL IVPUSH (15:42)
[2023-06-01 16:42] VITALS: BP 113/73; PULSE 70; RESP 18; TEMP 36.4; O2SAT 98
[2023-06-01] MEDS: 0.9 % Sodium Chloride 1,000 ML 999 ML IVCONT ×2 (16:42→18:09)
[2023-06-01] MEDS: Nystatin Oral Susp 500,000 UNIT/5 ML ORAL.SUSP 400000 UNIT BUCCAL (17:08)
[2023-06-01 17:45] VITALS: BP 127/84; PULSE 76; RESP 18; O2SAT 99
[2023-06-01] MEDS: Ketorolac Tromethamine 15 MG/ML VIAL IVPUSH (20:09)
--- NOTE | 2023-06-01 20:45 | PC.NURSE ---
Nurse to nurse report called to ED overflow, spoke to STEPHANIE Jasso. patient to be transported to overflow bed 4 by food equipment service technician.
--- NOTE | 2023-06-01 21:05 | PC.NURSE ---
Assumed care of pt. Pt brought into pod by stretcher, able to stand and pivot with steady gait to bed in room. Pt requesting nighttime meds and PO intake. Medication Recon completed, pending med orders by provider. Assessed MAR pain per previously administered medications. Pt calm and cooperative with staff at this time.
[2023-06-01 21:17] VITALS: BP 118/78; PULSE 72; RESP 18; O2SAT 98
[2023-06-01] MEDS: Gabapentin 600 MG TABLET PO (22:19)
[2023-06-01] MEDS: Mirtazapine 30 MG TABLET 60 MG PO (22:19)
[2023-06-01] MEDS: risperiDONE 3 MG TABLET PO (22:20)
[2023-06-01] MEDS: Celecoxib 200 MG CAPSULE PO (22:21)
--- NOTE | 2023-06-01 22:54 | MHC.EDTECH ---
PT ATE A SANDWICH HAD SOME JUICE ,PT LAYING IN BED WATCHING TELEVISION ,NO CONCERN AT THIS TIME ,BED ALARM ON WILL CONTINUE TO MONITOR .
--- NOTE | 2023-06-02 04:01 | PC.NURSE ---
Assumed care of patient at 2300. Pt sleeping , hourly rounding performed. Bed alarm on , call jansen within reach.
[2023-06-02 05:28] LABS: Appearance Urine Clear; Color Urine Yellow; Glucose Urine UA Negative (Negative); Leukocyte Esterase Urine Negative (Negative); Nitrite Urine Negative (Negative); PH 7.5 (5.0-9.0); Urine Blood Negative (Negative); Urine Ketones Negative (Negative); Urine Protein Negative (Neg-Trace)
[2023-06-02 06:00] VITALS: BP 127/81; PULSE 63; RESP 13; TEMP 36.4; O2SAT 96
[2023-06-02 08:45] VITALS: BP 127/81; PULSE 63; O2SAT 96
[2023-06-02] MEDS: Propranolol HCL LA 60 MG CAP.SA.24H 120 MG PO (09:15)
[2023-06-02] MEDS: Ferrous Sulfate 324 MG TABLET.DR PO (09:15)
[2023-06-02] MEDS: Bictegrav/Emtricit/Tenofov Ala TABLET 1 TAB PO (09:15)
[2023-06-02] MEDS: Gabapentin 600 MG TABLET PO ×2 (09:15→15:19)
[2023-06-02] MEDS: Celecoxib 200 MG CAPSULE PO ×2 (09:15→21:31)
[2023-06-02] MEDS: amLODIPine Besylate 5 MG TABLET PO (09:15)
[2023-06-02] MEDS: clonazePAM 1 MG TABLET PO (09:15)
--- NOTE | 2023-06-02 11:55 | MHC.CM.ED ---
CALL FROM MICHELINE TAYLOR RN. [phone] PATIENT IS ACTIVE WITH DAILY RN VISITS FOR VITALS AND MEDICATION MANAGEMENT. HE ALSO HAS [employer] THREE TIMES PER WEEK. [employer] DOES [employer] SHOPPING AND HOME CARE. REFERRAL PLACED FOR AGENCY TO FOLLOW RN IS AWARE THAT P.T. IS CURRENTLY RECOMMENDING STR AT [place], AND [place]CH [place]AL[place] [facility] [place]IENT IS NOT MEDICALLY CLEARED FOR DC AT THIS TIME.
[2023-06-02 14:00] VITALS: BP 139/90; PULSE 56; RESP 17; TEMP 36.2; O2SAT 99
--- NOTE | 2023-06-02 18:24 | PC.NURSE ---
Patient drowsy in the morining, had difficulty swallowing medication and was pocketing the food at breakfast. Refused lunch. Had difficulty chewing and swallowing food at dinner. ED provider notified, diet adjusted to ground, thin liquid and speech/swallow eval order placed. Patient got up to use bedside commode, no bm today.
--- NOTE | 2023-06-02 19:14 | ECG_ITS ---
Test Reason : CP/WEAKNESS Blood Pressure : / mmHG Vent. Rate : 057 BPM Atrial Rate : 057 BPM P-R Int : 162 ms QRS Dur : 102 ms QT Int : 424 ms P-R-T Axes : 077 070 061 degrees QTc Int : 412 ms Sinus bradycardia Incomplete right bundle branch block T wave abnormality, consider anterior ischemia Abnormal ECG When compared with ECG of 01-JUN-2023 14:29, No significant change was found Referred By: Jose Sumner Electronically Signed By:RUBY ISLAS
[2023-06-02] MEDS: Latanoprost 0.005 % Ophth Sol 2.5 ML DROPS 1 DROP EYE-BOTH (21:28)
[2023-06-02] MEDS: risperiDONE 3 MG TABLET PO (21:31)
[2023-06-02 22:00] VITALS: BP 130/80; PULSE 60; RESP 16; TEMP 36.3; O2SAT 98
--- NOTE | 2023-06-03 05:41 | PC.NURSE ---
Care Plan Nursing Note: Patient alert and oriented. Cooperative and accepting of care. Patient restful overnight. Patient had difficulty swallowing gabapentin at bedtime, pill was spit out and discarded. Mirtazapine 60mg was held at bedtime, patient drowsy. Patient observed pocketing moderate amount of liquid in oral cavity (left side). Plan moving forward: Case management - STR placement, Speech/Swallow evaluation Fall Prevention Interventions: Lighting adjusted, room near RN station, bed in lowest/locked position, call jansen in reach, nonskid socks when OOB, purposeful hourly rounding, bed alarm Assistance (level of assistance required for transfers and ambulation): 1-2 person assist Supervision (direct monitoring required for toileting and ADLs): direct observation, hands on
[2023-06-03 06:00] VITALS: BP 110/69; PULSE 55; RESP 16; TEMP 36.3; O2SAT 96
[2023-06-03] MEDS: Fluticasone/Vilanterol 200/25 BLST.W.DEV 1 PUFF INHALE (08:18)
[2023-06-03] MEDS: amLODIPine Besylate 5 MG TABLET PO (08:43)
[2023-06-03] MEDS: Ferrous Sulfate 324 MG TABLET.DR PO (08:43)
[2023-06-03] MEDS: Gabapentin 600 MG TABLET PO ×3 (08:43→21:59)
[2023-06-03] MEDS: clonazePAM 1 MG TABLET PO (08:43)
[2023-06-03] MEDS: Celecoxib 200 MG CAPSULE PO ×2 (11:04→21:55)
[2023-06-03] MEDS: Bictegrav/Emtricit/Tenofov Ala TABLET 1 TAB PO (11:04)
[2023-06-03] MEDS: Propranolol HCL LA 60 MG CAP.SA.24H 120 MG PO (12:54)
[2023-06-03 14:00] VITALS: BP 120/74; PULSE 82; RESP 16; TEMP 36.1; O2SAT 96
--- NOTE | 2023-06-03 14:12 | PHA.MEDREC ---
Pharmacy Consult ? Medication Reconciliation Pharmacy has completed the medication reconciliation.
--- NOTE | 2023-06-03 15:21 | MHC.CM.ED ---
Patient remains in ER overflow. Physical therapy completed. Short term rehab is recommended. CHIEF DIGITAL OFFICER eval is still pending. Met with patient and frame gate mortiser operator in regards to discharge planning. Patient received 4 Moderna vaccines and 2 Pfizer vaccines. HCP verfied to be on file. Patient is active with [facility]. Patient has been to [facility] in the past. He did not have a bed experience there but he would prefer to return home because he has a dog at home. His neighbor is currently watching his dog. But patient is not sure his neighbor will be able to watch his dog while he goes to [facility]. Patient agreeable to staying overnight. Patient is active with [facility]. T/W will reach out to [facility] of transitions of care to see if patient can safely return home. Continue to monitor for d/c needs.
[2023-06-03 16:22] LABS: COVID-19 Test Negative (Negative); IDNOW Serial# BCCEAD1C
--- NOTE | 2023-06-03 18:00 | MHC.EDTECH ---
THIS PCT ASSUMED CARE OF PT AT 1500 ,PATIENT ATE 100 ? OF DINNER ,DRANK 240 ML MILK ,AFTER DINNER PT WAS GIVEN A BED BATH AND BEDDING CHANGE ,PT COMFORTABLE WATCHING TELEVISION ,WILL CONTINUE TO MONITOR .
--- NOTE | 2023-06-03 19:00 | MHC.EDTECH ---
PATIENT SISTER CAME FOR A VISIT ,PT WAS HUNGRY HAD 2 PUDDINGS ,AND DRANK 2 ORANGE JUICE ,PT COMFORTABLE AND WATCHING TELEVISION .
[2023-06-03 20:34] VITALS: BP 125/71; PULSE 57; RESP 18; TEMP 36.4
--- NOTE | 2023-06-03 20:40 | MHC.EDTECH ---
PT RANG WAS HELP TO USE THE URINAL ,VOID 500 ML ,VITALS SIGN TAKEN ,PT WAS HUNGRY HAD 2 ICE CREAM ,PT CONTINUE TO WATCH TELEVISION ,PT IS IN NO DISTRESS ,WILL CONTINUE TO MONITOR .
[2023-06-03] MEDS: Mirtazapine 30 MG TABLET 60 MG PO (21:55)
[2023-06-03] MEDS: risperiDONE 3 MG TABLET PO (21:55)
[2023-06-03] MEDS: Latanoprost 0.005 % Ophth Sol 2.5 ML DROPS 1 DROP EYE-BOTH (22:04)
--- NOTE | 2023-06-03 22:47 | MHC.EDTECH ---
PT SLEEPING AT THIS TIME ,NO APPARENT DISTRESS ,WILL CONTINUE TO MONITOR .
--- NOTE | 2023-06-04 01:19 | PC.NURSE ---
Assumed care of patient. Patient resting comfortably at present. No complaints, bed alarm on , call jansen within reach.
[2023-06-04 06:01] VITALS: BP 147/85; PULSE 48; RESP 20; TEMP 35.9; O2SAT 98
[2023-06-04 08:00] VITALS: BP 126/87; PULSE 55; RESP 17; TEMP 35.8; O2SAT 97
[2023-06-04] MEDS: Gabapentin 600 MG TABLET PO ×3 (09:03→21:04)
[2023-06-04] MEDS: clonazePAM 1 MG TABLET PO (09:03)
[2023-06-04] MEDS: amLODIPine Besylate 5 MG TABLET PO (09:03)
[2023-06-04] MEDS: Bictegrav/Emtricit/Tenofov Ala TABLET 1 TAB PO (09:03)
[2023-06-04] MEDS: Celecoxib 200 MG CAPSULE PO ×2 (09:03→21:04)
[2023-06-04] MEDS: Fluticasone/Vilanterol 200/25 BLST.W.DEV 1 PUFF INHALE (09:03)
[2023-06-04] MEDS: Ferrous Sulfate 324 MG TABLET.DR PO (09:03)
--- NOTE | 2023-06-04 10:44 | ECG_ITS ---
Test Reason : chest pain Blood Pressure : / mmHG Vent. Rate : 056 BPM Atrial Rate : 056 BPM P-R Int : 162 ms QRS Dur : 108 ms QT Int : 416 ms P-R-T Axes : 078 071 059 degrees QTc Int : 401 ms Sinus bradycardia T wave abnormality, consider anterior ischemia Abnormal ECG When compared with ECG of 02-JUN-2023 19:29, Incomplete right bundle branch block is no longer Present Referred By: Leonarda Lucero Electronically Signed By:RUBY ISLAS
--- NOTE | 2023-06-04 13:48 | MHC.SL.SWA ---
Addendum entered and electronically signed by CHANTAL Sequeira 06/05/23 15:50: Pt seen for follow-up on 06/05/23. Presents as more clear today, but still clearly lethargic. This LONG TERM CARE PHLEBOTOMIST saw him at his [facility] in January of this year at which time he was ambulatory and conversive. This is a significant change in his presentation. He is however, doing better today than yesterday. After evaluation he was kept NPO. Pt expresses that he is hungry and agrees to participate in trials of food and drinks. Pt tolerated Thin Liquids via Ice Chip, Spoon and Cup Sip. He appeared to hold the liquid in his mouth prior to swallowing and demonstrated changes in breathing pattern. He tolerated Puree Solids and Ground Solids with increased time and effort to orally prepare the Ground/Mech Altered Solids. But he managed to do so with adequate oral clearance and no overt s/s of aspiration. Recommending a conservative start to his diet with Ground/Mech Altered Solids (NDD2) and Thin Liquids. Medications Crushed with Puree. No straws. Strict aspiration precautions apply. LONG TERM CARE PHLEBOTOMIST will continue to follow. Original Note: Speech Pathologist Impression: Risk of Aspiration Oral Phase Dysphagia Risk of Aspiration Due to: Lethargy History of Pneumonia Poor PO Intake Weak Cough Weak Voice Dysphasia Diet Status: DOWNGRADE to NPO Recommend NPO d/t large amount of pooling w/ various liquids and solids during lunch and PO trials w/ LONG TERM CARE PHLEBOTOMIST. Recommend meds NPO. If essential meds require PO administration, recommend pills w/ a small amount of puree solids. Ensure patient is provided enough time to swallow and clear oral cavity before presenting additional bites if needed. LONG TERM CARE PHLEBOTOMIST to re-evaluate tomorrow morning. RN on floor notified via phone. RN, hospitalist, RD notified via Oversee. Liquid Consistency and Strategies for Safe Swallow: Liquid Intake Recommendation: NPO Solid Food Consistency: Dietary Recommendations: NPO Oral Medication Intake: NPO Please contact the pharmacy regarding appropriate crushable or liquid drug formulations that are available whenever modified delivery is recommended. Supervision While Eating and Drinking for Safe Swallow: PO with LONG TERM CARE PHLEBOTOMIST Recommendation for Speech: Further Testing Needed Inpatient Speech Therapy Patient seen by LONG TERM CARE PHLEBOTOMIST team during hospitalization in December-January 2023. Patient was discharged from LONG TERM CARE PHLEBOTOMIST tx as inpatient on 01/03 tolerating NDD3 and thin at bedside. Patient then had choking incident that required rapid response and intubation on 01/03. Patient extubated on 01/05. Had MBS done on 01/09; recommended NDD3 and thin liquids. 01/09/2023 MBS recommendation: NDD3, thin liquids, pills whole w/ liquid. During exam, patient demonstrated deficit in oral phase marked by disorganized chewing/mashing, leaving parts of bolus unchewed, delayed initiation of tongue movement, required additional time and subsequent swallows to clear oral cavity. Recommend NPO d/t large amount of pooling w/ various liquids and solids during lunch and PO trials w/ LONG TERM CARE PHLEBOTOMIST. Recommend meds NPO. If essential meds require PO administration, recommend pills w/ a small amount of puree solids. Ensure patient is provided enough time to swallow and clear oral cavity before presenting additional bites if needed. LONG TERM CARE PHLEBOTOMIST to re-evaluate tomorrow morning. RN on floor notified via phone. RN, hospitalist, RD notified via Oversee. Route Sales Associate Clinican/Clinical Fellow: No Supervisory Statement: I have reviewed and agree with the student/clinical fellow's documentation: No Speech Language Pathologist: Mona Hale M.A., CCC-LONG TERM CARE PHLEBOTOMIST
[2023-06-04 14:00] VITALS: BP 115/76; PULSE 61; RESP 17; TEMP 36.1; O2SAT 94
[2023-06-04] MEDS: Ketorolac Tromethamine 15 MG/ML VIAL IM (14:52)
[2023-06-04] MEDS: 0.9 % Sodium Chloride 1,000 ML 75 ML IVCONT (14:53)
[2023-06-04 15:50] VITALS: BP 111/72; PULSE 58; RESP 18; TEMP 36.6; O2SAT 93
--- NOTE | 2023-06-04 16:02 | MHC.CM.ED ---
Patient remains in ER overflow. Per CCA, patient receives long[facility]term from [facility]. PUMP OPERATOR eval completed. NPO is recommended at this time. They will re-eval patient tomorrow. Leonarda JC aware. Patient is still resistant to going to STR because he doesn't he doesn't feel his neighbor will continue to watch his dog. Will re-see patient after PUMP OPERATOR tomorrow. Continue to monitor for d/c needs.
[2023-06-04 19:41] VITALS: BP 123/81; PULSE 53; RESP 18; TEMP 37; O2SAT 97
--- NOTE | 2023-06-04 19:45 | MHC.EDTECH ---
Patient bed pad changed and patient given apple juice
[2023-06-04] MEDS: risperiDONE 3 MG TABLET PO (21:04)
[2023-06-04] MEDS: Mirtazapine 30 MG TABLET 60 MG PO (21:04)
[2023-06-04] MEDS: diphenhydrAMINE HCL 25 MG CAPSULE 50 MG PO (21:05)
--- NOTE | 2023-06-04 22:33 | PC.NURSE ---
This RN assumed care at 1915. Patient is currently NPO until speech re-eval tomorrow morning, per previous RN, patient takes pills in apple sauce. This RN gave patient pills with apple sauce one by one, patient swallowed pills with no signs or symptoms of aspiration. Patient medicated per NOV, currently resting in bed with eyes closed and even chest rise and fall. Plan of care ongoing.
[2023-06-05] MEDS: 0.9 % Sodium Chloride 1,000 ML 75 ML IVCONT ×2 (04:12→17:09)
[2023-06-05 06:00] VITALS: BP 111/66; PULSE 52; RESP 18; TEMP 36.4; O2SAT 96
[2023-06-05] MEDS: clonazePAM 1 MG TABLET PO (08:26)
[2023-06-05] MEDS: Bictegrav/Emtricit/Tenofov Ala TABLET 1 TAB PO (08:26)
[2023-06-05] MEDS: Propranolol HCL LA 60 MG CAP.SA.24H 120 MG PO (08:26)
[2023-06-05] MEDS: amLODIPine Besylate 5 MG TABLET PO (08:27)
[2023-06-05] MEDS: Gabapentin 600 MG TABLET PO ×3 (08:27→20:11)
[2023-06-05] MEDS: Ferrous Sulfate 324 MG TABLET.DR PO (08:27)
[2023-06-05] MEDS: Fluticasone/Vilanterol 200/25 BLST.W.DEV 1 PUFF INHALE (08:54)
[2023-06-05 08:55] VITALS: PULSE 62; RESP 20; O2SAT 95
--- NOTE | 2023-06-05 10:27 | MHC.SPEECHCO ---
OPAL POLISHER evaluation completed. Recommending Ground/Mech Altered (NDD2) Solids and [place]-Thick Liquids. Medications Whole with Puree. Aspiration precautions and distant supervision apply. OPAL POLISHER will continue to follow.
[2023-06-05] MEDS: Celecoxib 200 MG CAPSULE PO ×2 (10:32→20:11)
--- NOTE | 2023-06-05 10:48 | PC.NURSE ---
Seen by pt provider aware diet ground and nectar thick liquids
--- NOTE | 2023-06-05 13:40 | PC.NURSE ---
changed and repositioned as needed. tolerated new diet with nectar thick and ground
[2023-06-05 14:40] VITALS: BP 121/73; PULSE 61; RESP 15; TEMP 36.3; O2SAT 95
--- NOTE | 2023-06-05 16:05 | PC.NURSE ---
Patient complaining of chest pain and increased coughing. Provider Leonarda Lucero made aware and will get another Xray on patient. Patient with no s/s of distress but moderate coughing is noted. Patient given pudding and nectar thick fluids, tolerating well.
--- NOTE | 2023-06-05 16:33 | MHC.EDTECH ---
Assisted pt with use of urinal. Standing to void.
--- NOTE | 2023-06-05 18:18 | MHC.EDTECH ---
Assisted pt with use of urinal.
[2023-06-05] MEDS: Mirtazapine 30 MG TABLET 60 MG PO (20:11)
[2023-06-05] MEDS: risperiDONE 3 MG TABLET PO (20:11)
[2023-06-05] MEDS: Latanoprost 0.005 % Ophth Sol 2.5 ML DROPS 1 DROP EYE-BOTH (20:11)
[2023-06-05] MEDS: diphenhydrAMINE HCL 25 MG CAPSULE 50 MG PO (20:20)
[2023-06-05] MEDS: Ketorolac Tromethamine 15 MG/ML VIAL IM (20:20)
[2023-06-05 21:03] VITALS: BP 149/85; PULSE 93; RESP 18; TEMP 37.1; O2SAT 93
[2023-06-05] MEDS: Benzonatate 100 MG CAPSULE PO (21:25)
--- NOTE | 2023-06-05 22:45 | PC.NURSE ---
2100; Patient alert, oriented. Patient complaining of pleuritic chest pain, worse with coughing, l/s are diminished, 93% on room air. Medicated per nov. Patient has a wet cough, reporting he cannot cough up phlegm but is trying to. Ed MD notified via Onfido. Order for tessalon; administered with good effect. 2245; Patient resting with eyes closed; even respirations. Callbell within reach.
[2023-06-06 06:00] VITALS: BP 130/89; PULSE 100; RESP 15; O2SAT 94
[2023-06-06] MEDS: 0.9 % Sodium Chloride 1,000 ML 75 ML IVCONT (06:12)
[2023-06-06] MEDS: clonazePAM 1 MG TABLET PO (08:11)
[2023-06-06] MEDS: Propranolol HCL LA 60 MG CAP.SA.24H 120 MG PO (08:11)
[2023-06-06] MEDS: amLODIPine Besylate 5 MG TABLET PO (08:11)
[2023-06-06] MEDS: Bictegrav/Emtricit/Tenofov Ala TABLET 1 TAB PO (08:14)
[2023-06-06] MEDS: Celecoxib 200 MG CAPSULE PO (08:16)
[2023-06-06] MEDS: Ferrous Sulfate 324 MG TABLET.DR PO (08:16)
[2023-06-06] MEDS: Benzonatate 100 MG CAPSULE PO ×2 (08:17→15:37)
[2023-06-06] MEDS: Gabapentin 600 MG TABLET PO ×2 (08:18→15:36)
--- NOTE | 2023-06-06 08:56 | PC.NURSE ---
pt took morning medications with applesauce without difficulty. IV NS infusing per MAR. pt reports pain in throat and upper chest, pt has intermittent dry cough.
[2023-06-06] MEDS: Fluticasone/Vilanterol 200/25 BLST.W.DEV 1 PUFF INHALE (09:12)
--- NOTE | 2023-06-06 11:54 | ECG_ITS ---
Test Reason : CP Blood Pressure : / mmHG Vent. Rate : 068 BPM Atrial Rate : 068 BPM P-R Int : 156 ms QRS Dur : 094 ms QT Int : 404 ms P-R-T Axes : 074 067 054 degrees QTc Int : 429 ms Normal sinus rhythm Normal ECG When compared with ECG of 04-JUN-2023 10:49, T wave inversion no longer evident in Anterior leads Referred By: Krista Thomas Electronically Signed By:RUBY ISLAS
--- NOTE | 2023-06-06 12:34 | PC.NURSE ---
pt reports central sharp chest pain, PA aware. EKG and CXR ordered and complete.
[2023-06-06 14:53] VITALS: BP 109/71; PULSE 61; RESP 19; TEMP 36.7; O2SAT 94
--- NOTE | 2023-06-06 16:54 | MHC.CM.ED ---
Patient remains in ER overflow. PT continues to rec [facility]. Patient declines and wants to return home with resumption of services with Michelle. Krista JC aware. Michelle made aware. Laura DIAZ booked for 7pm. Patient, Maribell BROWN and Krista JC aware. Cotninue to monitor for d/c needs.
--- NOTE | 2023-06-06 17:16 | MHC.SL.SWA ---
Speech Pathologist Impression: Risk of Aspiration Oral Phase Dysphagia Risk of Aspiration Due to: Lethargy History of Pneumonia Poor PO Intake Weak Cough Weak Voice Dysphasia Diet Status: Recommend UPGRADE to THIN liquids, Continue w/ NDD2 Liquid Consistency and Strategies for Safe Swallow: Liquid Intake Recommendation: Thin Liquid Intake Strategies: Small sips Solid Food Consistency: Dietary Recommendations: NDD2 Oral Medication Intake: Whole w/ liquid Please contact the pharmacy regarding appropriate crushable or liquid drug formulations that are available whenever modified delivery is recommended. Foods to Avoid: Avoid difficult to chew solids. Recommendation for Speech: Further Testing Needed Inpatient Speech Therapy Comment: Patient seen during dinner prior to d/c. Note moderate lingual residue w/ ground solids, cleared w/ subsequent swallows or sips of liquid. Patient tolerated full cup of thin liquid via controlled cup sip and straw. Patient reports that he drinks only Ensure at home. He reports he does not have a meat blender to make foods softer. Feels more comfortable w/ drinking Ensure. Patient given copy of MBS from January 2023 and phone number of speech & hearing clinic. Patient encouraged to reach out w/ any questions or concerns pertaining to swallowing/dysphagia. Recommend UPGRADE to THIN liquids. Continue w/ ground/mech altered solids (NDD2). Template Storage Clerk Clinican/Clinical Fellow: No Supervisory Statement: I have reviewed and agree with the student/clinical fellow's documentation: No Speech Language Pathologist: Mona Hale M.A., [facility]-CARDIOLOGY PHYSICIAN ASSISTANT
== END 2023-06-06 18:57 | disposition home or self-care (01) ==
PROVIDERS: Physician Assistant; Registered Nurse Emergency; Emergency Provider Emergency Medicine
DX: R07.89 Other chest pain (principal); E86.0 Dehydration; R53.1 Weakness; R05.9 Cough, unspecified; R00.1 Bradycardia, unspecified; R13.10 Dysphagia, unspecified; E46 Unspecified protein-calorie malnutrition; R26.81 Unsteadiness on feet; Z20.822 Contact with and (suspected) exposure to COVID-19; Z20.828 Contact with and (suspected) exposure to other viral communicable diseases; Z79.899 Other long term (current) drug therapy
CPT/HCPCS: 36415; 71045; 71046; 80053; 81003; 83735; 84484; 85025; 87635; 93005; 96361; 96372; 96374; 96375; 97162; 99285; J1885; J2405

== ENCOUNTER 2023-06-18 19:05 | Emergency (ER) | payer OTHER, SELFPAY ==
[2023-06-18 19:12] VITALS: BP 127/83; BP 143/95; PULSE 75; PULSE 76; RESP 14; TEMP 37.2; O2SAT 91; O2SAT 94; BMI 17.0
--- NOTE | 2023-06-18 19:22 | PC.NURSE ---
pt BIBA found on the street very lethargic. no narcan given by EMS. pt able to answer some questions but remains lethargic. MD hassan at beside. 02 inconsistent, drops to 78%, placed on 2L NC, RR varies from 7-15, 02 still drops to 88%. 4mg nasal narcan given per VO by MD Hassan. pt now more alert and talkative, RR 18, O2 97%. pt reports taking lorazepam
--- NOTE | 2023-06-18 19:24 | ED.OVERDOSE ---
HPI - Overdose General Chief Complaint: ETOH/Substance Use Stated Complaint: DRUG USE Time Seen by Provider: 06/18/23 19:17 Source: EMS Mode of arrival: EMS Limitations: altered mental status History of Present Illness HPI Narrative: Patient comes to the emergency room via EMS. EMS states that someone found the patient lethargic in the street. Is unclear if the patient fell. Patient admitted to using alcohol and heroin. Patient does not know if he fell. Patient is lethargic, only answering yes no questions. Related Data Home Medications Medication Instructions Recorded Confirmed amlodipine 5 mg tablet 5 mg PO DAILY 12/30/22 06/01/23 bictegravir 50 mg-emtricitabine 1 tab PO DAILY 12/30/22 06/01/23 200 mg-tenofovir alafenam 25 mg tablet (Biktarvy) celecoxib 200 mg capsule 200 mg PO BID 12/30/22 06/01/23 clonazepam 1 mg tablet 1 mg PO DAILY 12/30/22 06/01/23 gabapentin 600 mg tablet 600 mg PO TID 12/30/22 06/01/23 latanoprost 0.005 % eye drops 1 drp ophthalmic (eye) DAILY 12/30/22 06/01/23 mirtazapine 30 mg tablet 60 mg PO BEDTIME 12/30/22 06/01/23 propranolol 120 mg capsule,24 120 mg PO DAILY 12/30/22 06/01/23 hr,extended release tramadol 50 mg tablet 50 mg PO DAILY PRN Pain 12/30/22 06/01/23 albuterol sulfate 90 mcg/actuation 2 puff inhalation Q6H PRN wheezing 02/12/23 06/01/23 aerosol inhaler ascorbic acid (vitamin C) 250 mg 250 mg PO QAM 02/12/23 06/01/23 tablet diphenhydramine HCl 25 mg tablet 50 mg PO BEDTIME PRN Sleep 02/12/23 06/01/23 (Banophen) ferrous gluconate 324 mg (38 mg 324 mg PO QAM 02/12/23 06/01/23 iron) tablet ibuprofen 800 mg tablet 800 mg PO Q8H PRN pain 02/12/23 06/01/23 brimonidine 0.2 %-timolol 0.5 % 1 drp ophthalmic (eye) BID 06/01/23 06/01/23 eye drops fluticasone propionate 230 2 puff inhalation BID 06/01/23 06/01/23 mcg-salmeterol 21 mcg/actuation HFA inhaler (Advair HFA) risperidone 3 mg tablet 3 mg PO BEDTIME 06/01/23 06/01/23 Previous Rx's Medication Instructions Recorded naproxen 500 mg tablet 500 mg PO BID PRN pain #20 tabs 03/27/23 Allergies Allergy/AdvReac Type Severity Reaction Status Date / Time Seasonal Allergies Allergy Intermediate Eye Verified 01/23/23 10:03 Drainage codeine Allergy Mild Rash Verified 02/13/23 08:33 [From Tylenol-Codeine #3] levofloxacin [From Levaquin] Allergy Mild Rash Verified 01/23/23 10:03 metoclopramide [From Reglan] Allergy Mild Rash Verified 01/23/23 10:03 acetaminophen Allergy Unknown Unknown Verified 01/23/23 10:03 [Tylenol-Codeine #3] Penicillins [PENICILLINS] Allergy Unknown Rash Verified 01/23/23 10:03 tramadol [From Ultram] AdvReac Mild Nausea and Verified 01/23/23 10:03 Vomiting ibuprofen [From Motrin] AdvReac Unknown Reflux Verified 02/13/23 08:33 Review of Systems Review of Systems: Yes Unobtainable due to mental status PMFSH Past Medical History Medical History History of empyema of pleura (01/05/23) Hypertension Closed fracture of leg Hepatitis C Kidney stones Pleuritic chest pain Pneumonia Substance abuse Hemorrhoids Depression HIV (human immunodeficiency virus infection) Asthma Surgical History H/O hemorrhoidectomy Social History Social History Household Members: None Housing: Apartment Do you presently have visiting nurse or other home services: Yes ([employer]) Alcohol intake: current Alcohol intake frequency: does not drink Patient Tobacco Use Status: Never used Tobacco Smoked in Last 30 Days: Yes Second Hand Smoke Exposure: No Use of substances other than those prescribed or required for medical reasons: Yes Substance Use Type: Heroin Advance Directives: Yes Advance Directives on File: Yes Advance Directives Date on File: 04/25/21 service: No Current occupational status: disabled Physical Exam Vital Signs: Vital Signs: Last Vital Signs Temp 97.7 F 06/18/23 21:04 Pulse 64 06/18/23 21:04 Resp 16 06/18/23 21:04 BP 118/76 06/18/23 21:04 Pulse Ox 93 06/18/23 21:04 O2 Del Method Room Air 06/18/23 21:04 BMI result Body Mass Index 17.0 Const: Other: Appearance: Alert. Oriented X1. Lethargic, somnolent, easily arousable, answers yes no questions Eyes: Pupils equal, round and reactive to light. ENT: Pharynx normal. Neck: Normal inspection. Neck supple. No lymph nodes noted. No crepitus CVS: Normal heart rate and rhythm. Pulses normal. Normal S1 and S2 Respiratory: No respiratory distress. Breath sounds normal. No Wheezing. No rales Abdomen: Soft and nontender. No rigidity. No distention. Skin: Skin warm and dry. Normal skin color. Normal skin turgor. Extremities: No lower extremity edema. No Lacerations. No Rash Neuro: Lethargic, ETOH? Psych: calm, cooperative Course Course Course Narrative: -all of patient's labs and head CT pending -patient's oxygen saturation 78% on room air. Patient was put on 3 L of oxygen, respiration rate 5, patient was given 1 dose of intranasal Narcan in the emergency room, respiratory rate improved, oxygen saturation remains in the mid 90s on 2 L. -after Narcan, patient will go completely, calm, cooperative, oxygen saturation 95% on room air Medications Administered Discontinued Medications Generic Name Dose Route Start Last Admin Trade Name Akira PRN Reason Stop Dose Admin Naloxone HCl 8 mg 06/18/23 19:24 06/18/23 21:26 Naloxone Hcl Nasal Take Home 4 Mg [place] NOSTRILALT 06/18/23 19:25 Not Given ONCE ONE Naloxone HCl 4 mg 06/18/23 19:31 06/18/23 19:32 Naloxone Hcl Nasal 4 Mg [place] NOSTRILALT 06/18/23 19:32 4 mg ONCE ONE Administration Medical Decision Making Medical Decision Making [facility] Narrative: -my interpretation of labs: Hematology at baseline, chemistries baseline, troponin negative -my interpretation of EKG: Normal sinus rhythm, heart rate 69, no ST segment depression or elevation, nonspecific T-wave inversion in V3 and III, QTC 411 -patient awake alert and oriented x3, asymptomatic, vitals stable, oxygen saturation 93% on room air. -patient declined CARE/sude eval -patient denies suicidal or homicidal ideation -patient will be discharged home with home Narcan -interpretation of head CT of the scan: No intracranial bleed. Radiology report pending -metabolize to freedom, please follow CT scan report -sign out given to Dr. Younger Differential Diagnosis Differential Diagnoses: The differential diagnosis associated with the presentation includes (Contusion, concussion, intracranial bleed, unclear patient fell) Admission/Observation Consideration of admission/observation: Escalation of care including admission/observation considered (Given patient's presentation, hypoxic, admission was considered) Lab Data MDM Lab Attestation statement: I reviewed the patient's lab results. 06/18/23 19:29 06/18/23 19:29 Labs: Lab Results 06/18/23 06/18/23 Range/Units 19:29 21:00 WBC 5.4 (4.8-10.8) X10*3/uL RBC 4.32 L (4.60-5.80) X10*6/uL Hgb 13.0 L (14.0-18.0) g/dl Hct 39.7 L (42.0-52.0) % MCV 91.9 (80.0-98.0) fL MCH 30.1 (27.0-33.0) pg MCHC 32.7 (31.0-36.0) g/dl RDW 16.9 H (11.0-16.0) % Plt Count 241 (160-400) X10*3/uL MPV 10.4 (9.4-12.4) fL Immature Gran % (Auto) 0.2 (0.0-0.4) % Neut % (Auto) 37.8 L (45-73) % Lymph % (Auto) 44.4 H (20-40) % Holt % (Auto) 14.1 H (2-11) % Eos % (Auto) 2.6 (0-4) % Baso % (Auto) 0.9 (0-2) % Lymph # (Auto) 2.4 (1.2-4.9) X10*3/uL Holt # (Auto) 0.8 (0.1-1.2) X10*3/uL Eos # (Auto) 0.1 (0.0-0.4) X10*3/uL Baso # (Auto) 0.1 (0.0-0.2) X10*3/uL Abs Immat Gran (auto) 0.01 (0.00-0.03) X10*3/uL Absolute Neuts (auto) 2.0 (2.0-8.3) x10*3/uL Absolute Nucleated RBC 0.000 (0.0-0.012) X10*3/uL Nucleated RBC % (auto) 0.0 (0.0-0.2) /100WBC Sodium 140 (135-145) mmol/L Potassium 4.7 D (3.3-5.1) mmol/L Chloride 102 (96-108) mmol/L Carbon Dioxide 26 (22-29) mmol/L Anion Gap 17 (12-20) BUN 17 H (9-16) mg/dL Creatinine 0.88 (0.5-1.4) mg/dL Estim Creat Clear Calc 64.6 Estimated GFR > 60 Random Glucose 104 (60-115) mg/dL Calcium 9.3 (8.4-10.2) mg/dL Magnesium 2.1 (1.6-2.6) mg/dL Total Bilirubin 0.3 (0.0-1.0) mg/dL Direct Bilirubin 0.1 (0.0-0.5) mg/dL AST 84 H (5-37) U/L ALT 57 H (0-40) U/L Alkaline Phosphatase 50 (39-117) U/L Troponin I High Sens < 2.7 (<3.5-35.0) ng/L Total Protein 7.7 (6.5-8.0) g/dL Albumin 4.1 (3.5-5.0) g/dL Urine Opiates Screen Not Detected (Not Detect) Urine Fentanyl Screen POSITIVE H (Not Detect) Ur Barbiturates Screen Not Detected (Not Detect) Ur Phencyclidine Scrn Not Detected (Not Detect) Ur Amphetamines Screen Not Detected (Not Detect) U Benzodiazepines Scrn Not Detected (Not Detect) Urine Cocaine Screen Not Detected (Not Detect) U Marijuana (THC) Screen Not Detected (Not Detect) Ethyl Alcohol < 10 mg/dL Critical Care Time Critical Care Time Critical Care Time: Yes Total Critical Care Time: 60 Attestation: I have personally provided critical care time. Time includes review of lab data, radiology results, discussion with consultants, and monitoring for potential decompensation. Intervention performed as documented. Discharge Plan Discharge Clinical Impression: Overdose Patient Disposition: Still a Patient Prescriptions: No Action celecoxib 200 mg capsule 200 mg PO BID Hold Instructions: Resume on 01/29/23. latanoprost 0.005 % drops 1 drp ophthalmic (eye) DAILY gabapentin 600 mg tablet 600 mg PO TID clonazepam 1 mg tablet 1 mg PO DAILY amlodipine 5 mg tablet 5 mg PO DAILY tramadol 50 mg tablet 50 mg PO DAILY PRN (Reason: Pain) mirtazapine 30 mg tablet 60 mg PO BEDTIME propranolol 120 mg capsule,extended release 24 hr 120 mg PO DAILY Hold Instructions: Resume on 03/09/23. Biktarvy 50-200-25 mg tablet 1 tab PO DAILY ibuprofen 800 mg tablet 800 mg PO Q8H PRN (Reason: pain) ascorbic acid (vitamin C) 250 mg tablet 250 mg PO QAM diphenhydramine HCl [Banophen] 25 mg tablet 50 mg PO BEDTIME PRN (Reason: Sleep) albuterol sulfate 90 mcg/actuation HFA aerosol inhaler 2 puff inhalation Q6H PRN (Reason: wheezing) ferrous gluconate 324 mg (38 mg iron) tablet 324 mg PO QAM naproxen 500 mg tablet 500 mg PO BID PRN (Reason: pain) Qty: 20 0RF fluticasone propion-salmeterol [Advair HFA] 230-21 mcg/actuation HFA aerosol inhaler 2 puff inhalation BID risperidone 3 mg tablet 3 mg PO BEDTIME brimonidine-timolol 0.2-0.5 % drops 1 drp ophthalmic (eye) BID
[2023-06-18 21:04] VITALS: BP 118/76; PULSE 64; RESP 16; TEMP 36.5; O2SAT 93
[2023-06-18 22:49] VITALS: BP 131/78; PULSE 51; RESP 13; O2SAT 96
[2023-06-18 23:33] VITALS: BP 131/77; PULSE 56; RESP 16; O2SAT 97
== END 2023-06-19 00:05 | disposition home or self-care (01) ==
PROVIDERS: Emergency Provider Emergency Medicine
DX: T40.1X1A Poisoning by heroin, accidental (unintentional), initial encounter (principal); T51.0X1A Toxic effect of ethanol, accidental (unintentional), initial encounter; R53.83 Other fatigue; Y92.9 Unspecified place or not applicable; R51.9 Headache, unspecified; R94.31 Abnormal electrocardiogram [ECG] [EKG]; Z79.899 Other long term (current) drug therapy
CPT/HCPCS: 36415; 70450; 80048; 80076; 80307; 83735; 84484; 85025; 93005; 99284; 99285

== ENCOUNTER 2023-06-21 16:00 | Outpatient (REF) | payer OTHER, SELFPAY ==
[2023-06-21 17:25] LABS: MANUAL DIFF FLAG NO
[2023-06-21 17:30] LABS: Basophils Percent Auto 0.7 % (0-2); Eosinophils Absolute Auto 0.2 X10*3/uL (0.0-0.4); Eosinophils Percent Auto 3.7 % (0-4); Hematocrit 40.9 % (42.0-52.0); Hemoglobin 13.3 g/dl (14.0-18.0); Imm Gran Abs Auto 0.01 X10*3/uL (0.00-0.03); Imm Gran Pct Auto 0.2 % (0.0-0.4); Lymphocytes Percent Auto 34.3 % (20-40); Mean Corpuscular HGB Conc 32.5 g/dl (31.0-36.0); Mean Corpuscular Volume 92.3 fL (80.0-98.0); Mean Platelet Volume 11.4 fL (9.4-12.4); Monocytes Absolute Auto 0.5 X10*3/uL (0.1-1.2); Monocytes Percent Auto 8.3 % (2-11); Neutrophils Absolute Auto 3.1 x10*3/uL (2.0-8.3); Neutrophils Percent Auto 52.8 % (45-73); Platelet Count 261 X10*3/uL (160-400); Red Blood Count 4.43 X10*6/uL (4.60-5.80); Red Cell Distribution Width 16.7 % (11.0-16.0); White Blood Count 5.9 X10*3/uL (4.8-10.8)
[2023-06-21 18:07] LABS: Alanine Aminotransferase 45 U/L (0-40); Albumin Level 4.2 g/dL (3.5-5.0); Alkaline Phosphatase 51 U/L (39-117); Anion Gap 16 (12-20); Aspartate Amino Transferase 32 U/L (5-37); Bilirubin Total 0.3 mg/dL (0.0-1.0); Blood Urea Nitrogen 16 mg/dL (9-16); Calcium 9.7 mg/dL (8.4-10.2); Carbon Dioxide 25 mmol/L (22-29); Chloride 102 mmol/L (96-108); Estimated Glomerular Filt Rate > 60; Glucose Random 91 mg/dL (60-115); Iron 32 mcg/dL (45-160); Percent Iron Saturation 10 % (15-50); Potassium 4.1 mmol/L (3.3-5.1); Sodium 139 mmol/L (135-145); Total Iron Binding Capacity 324 mcg/dL (228-428); Total Protein 7.7 g/dL (6.5-8.0); Unsaturated Iron Binding 292 ug/dL
[2023-06-21 18:22] LABS: Ferritin 41 ng/mL (20-250)
== END 2023-06-21 16:01 | disposition home or self-care (01) ==
LOC: HO.HHCL 16:00
PROVIDERS: Visit Provider Student in an Organized Health Care Education/Training Program
DX: D64.9 Anemia, unspecified (principal); E08.49 Diabetes mellitus due to underlying condition with other diabetic neurological complication
CPT/HCPCS: 36415; 80053; 82728; 83540; 85025

== ENCOUNTER 2023-06-24 11:34 | Inpatient (IN) | payer OTHER, SELFPAY ==
--- NOTE | ~2023-06-24 | XR_ITS ---
EXAMINATION: XR CHEST CLINICAL INFORMATION: Dyspnea COMPARISON: 06/27/2023 TECHNIQUE: Frontal view of the chest was obtained. FINDINGS: The lungs appear somewhat hyperinflated. No focal consolidation is seen. Redemonstrated clips overlying the left hilum. No evidence of pneumothorax, pleural effusion, or pulmonary edema. The cardiomediastinal contour is unremarkable. No acute osseous findings are seen. XR/XR chest 1V IMPRESSION: No acute cardiopulmonary findings.
--- NOTE | ~2023-06-24 | XR_ITS ---
EXAMINATION: XR CHEST CLINICAL INFORMATION: Chest pain COMPARISON: None available. TECHNIQUE: Frontal view of the chest was obtained. FINDINGS: The lungs are well-expanded and clear of acute pneumonic process. Heart size and pulmonary vascularity is normal. No gross bony abnormality seen. There are surgical ronald in the left hilar region from previous intervention. XR/XR chest 1V IMPRESSION: Unremarkable chest exam.
--- NOTE | ~2023-06-24 | XR_ITS ---
EXAMINATION: XR CHEST CLINICAL INFORMATION: Shortness of breath COMPARISON: Previous chest x-ray 06/24/2023 TECHNIQUE: Frontal view of the chest was obtained. FINDINGS: The cardiac and mediastinal contours are stable. There are surgical clips projecting over the left hilum. There is slight volume loss to the left hemithorax. New subsegmental atelectasis at the left lung base. The lungs are otherwise clear. No pleural effusion or pneumothorax. No acute bone abnormality. XR/XR chest 1V IMPRESSION: Postsurgical changes to the left hemithorax. Subsegmental atelectasis at the left lung base.
[2023-06-24 11:38] VITALS: BP 111/74; PULSE 92; O2SAT 94
[2023-06-24 11:44] VITALS: BP 118/80; PULSE 91; RESP 16; TEMP 36.4; O2SAT 95; BMI 19.1
--- NOTE | 2023-06-24 12:13 | ECG_ITS ---
Test Reason : CHEST PAIN Blood Pressure : / mmHG Vent. Rate : 082 BPM Atrial Rate : 082 BPM P-R Int : 134 ms QRS Dur : 090 ms QT Int : 402 ms P-R-T Axes : 083 078 055 degrees QTc Int : 469 ms Normal sinus rhythm RSR' or QR pattern in V1 suggests right ventricular conduction delay Otherwise normal ECG When compared with ECG of 18-JUN-2023 19:22, T wave inversion no longer evident in Inferior leads QT has lengthened Referred By: Daljit Younger Electronically Signed By:JAVID ARECHIGA MD
--- NOTE | 2023-06-24 12:14 | ED.GENADULT ---
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 Chest pain x2 days with localized to the left side of the chest with no radiation, feels like pressure on the chest, admitted to use cocaine a day before, no association with SOB or fever or chills. Pain is intermittent lasts for about 10 minute then go away, no clear aggravating factor no relieving factor. Otherwise no trauma to the chest however patient lives home alone with his dog at home and has been having frequent falls, patient declined headache or head injury nausea or vomiting, patient has a different stages of healing bruises. Related Data Home Medications Medication Instructions Recorded Confirmed amlodipine 5 mg tablet 5 mg PO DAILY 12/30/22 06/01/23 bictegravir 50 mg-emtricitabine 1 tab PO DAILY 12/30/22 06/01/23 200 mg-tenofovir alafenam 25 mg tablet (Biktarvy) celecoxib 200 mg capsule 200 mg PO BID 12/30/22 06/01/23 clonazepam 1 mg tablet 1 mg PO DAILY 12/30/22 06/01/23 gabapentin 600 mg tablet 600 mg PO TID 12/30/22 06/01/23 latanoprost 0.005 % eye drops 1 drp ophthalmic (eye) DAILY 12/30/22 06/01/23 mirtazapine 30 mg tablet 60 mg PO BEDTIME 12/30/22 06/01/23 propranolol 120 mg capsule,24 120 mg PO DAILY 12/30/22 06/01/23 hr,extended release tramadol 50 mg tablet 50 mg PO DAILY PRN Pain 12/30/22 06/01/23 albuterol sulfate 90 mcg/actuation 2 puff inhalation Q6H PRN wheezing 02/12/23 06/01/23 aerosol inhaler ascorbic acid (vitamin C) 250 mg 250 mg PO QAM 02/12/23 06/01/23 tablet diphenhydramine HCl 25 mg tablet 50 mg PO BEDTIME PRN Sleep 02/12/23 06/01/23 (Banophen) ferrous gluconate 324 mg (38 mg 324 mg PO QAM 02/12/23 06/01/23 iron) tablet ibuprofen 800 mg tablet 800 mg PO Q8H PRN pain 02/12/23 06/01/23 brimonidine 0.2 %-timolol 0.5 % 1 drp ophthalmic (eye) BID 06/01/23 06/01/23 eye drops fluticasone propionate 230 2 puff inhalation BID 06/01/23 06/01/23 mcg-salmeterol 21 mcg/actuation HFA inhaler (Advair HFA) risperidone 3 mg tablet 3 mg PO BEDTIME 06/01/23 06/01/23 Previous Rx's Medication Instructions Recorded naproxen 500 mg tablet 500 mg PO BID PRN pain #20 tabs 03/27/23 Allergies Allergy/AdvReac Type Severity Reaction Status Date / Time Seasonal Allergies Allergy Intermediate Eye Verified 01/23/23 10:03 Drainage codeine Allergy Mild Rash Verified 02/13/23 08:33 [From Tylenol-Codeine #3] levofloxacin [From Levaquin] Allergy Mild Rash Verified 01/23/23 10:03 metoclopramide [From Reglan] Allergy Mild Rash Verified 01/23/23 10:03 acetaminophen Allergy Unknown Unknown Verified 01/23/23 10:03 [Tylenol-Codeine #3] Penicillins [PENICILLINS] Allergy Unknown Rash Verified 01/23/23 10:03 tramadol [From Ultram] AdvReac Mild Nausea and Verified 01/23/23 10:03 Vomiting ibuprofen [From Motrin] AdvReac Unknown Reflux Verified 02/13/23 08:33 Review of Systems Review of Systems: All other systems are reviewed and are negative Constitutional: Reports as per HPI and Reports no additional constitutional complaints Eyes: Reports as per HPI and Reports no additional eye complaints Reports system reviewed and no additional complaints, except as documented Cardiovascular: Reports as per HPI and Reports no additional cardiovascular complaints Respiratory: Reports as per HPI and Reports no additional respiratory complaints Gastrointestinal: Reports as per HPI and Reports no additional gastrointestinal complaints Genitourinary: Reports no additional female genitourinary complaints Musculoskeletal: Reports no additional musculoskeletal complaints Skin/Breast: Reports system reviewed and no additional complaints, except as docu Psychiatric: Reports no additional psychiatric complaints Endocrine: Reports no additional endocrine complaints Hematologic/Lymphatic: Reports no additional hematologic/lymphatic complaints Allergic/Immunologic: Reports no additional allergic/immunologic complaints Reports system reviewed and no additional complaints, except as documented and Reports Abnormal speech present [facility] Past Medical History Medical History History of empyema of pleura (01/05/23) Hypertension Closed fracture of leg Hepatitis C Kidney stones Pleuritic chest pain Pneumonia Substance abuse Hemorrhoids Depression HIV (human immunodeficiency virus infection) Asthma Surgical History H/O hemorrhoidectomy Social History Social History Household Members: None Housing: Apartment Do you presently have 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[employer]) Alcohol intake: current Alcohol intake frequency: does not drink Patient Tobacco Use Status: Never used Tobacco Smoked in Last 30 Days: No Second Hand Smoke Exposure: No Use of substances other than those prescribed or required for medical reasons: No Substance Use Type: Heroin Advance Directives: Yes Advance Directives on File: Yes Advance Directives Date on File: 04/25/21 service: No Current occupational status: disabled Physical Exam ED Vital Signs: Vital Signs - 24 hr 06/24/23 11:44 06/24/23 14:21 Temperature 97.6 F Pulse Rate 91 85 Respiratory Rate 16 18 Blood Pressure 118/80 122/80 Pulse Oximetry 95 98 Oxygen Delivery Method Room Air Room Air BMI result Body Mass Index 19.1 Vital signs have been reviewed and appear to be correct. Blood pressure elevated. Heart rate normal. Respiratory rate normal. Temperature normal. Oxygen saturation normal. Appearance: Alert. Oriented X3. No acute distress. Head: Normal external exam. Normocephalic. Atraumatic. No [place] signs noted. No raccoon eyes noted Eyes: PERRLA. EOMI. Conjunctiva and sclera normal. Eyelids normal. ENT: TM's Normal. Pharynx normal. Uvula midline. Moist mucous membranes. No trismus noted. No drooling noted. No muffled voice noted. Neck: Normal inspection. Neck supple. FROM. No adenopathy. Thyroid Normal. No meningeal signs. No neck mass noted. CVS: Normal heart rate and rhythm. Heart sound normal. No murmurs noted. Pulses normal throughout. Respiratory: No respiratory distress. Painless inspiration. Breath sounds normal. No wheezes/rales/rhonchi noted. Chest nontender. No accessory muscle usage noted or decreased air movement noted. Abdomen: Soft and nontender. Bowel sounds normal in all 4 quadrants. No distention noted. No organomegaly noted. No visible injury noted. Back: No CVA tenderness. Full range of motion noted. Skin: Skin warm and dry. Normal skin color. Normal skin turgor. No rashes/lesions/lacerations noted. Extremities: No lower extremity edema. Extremities exhibit normal range of motion. Extremities nontender. Neuro: Oriented X 3. Cranial nerve exam: II-XII are grossly intact No motor deficit. No sensory deficit. Reflexes normal. Course Reevaluation(s) Reevaluation #1: 58-year-old male came in for evaluation of chest pain, patient has unremarkable EKG changes, troponin came back elevated to 100 and repeat troponin still high with no delta changes patient also admit to use cocaine yesterday., the case discussed with Dr. Keller. Will start the patient on heparin/aspirin/admit. Time: 15:00 Medical Decision Making Differential Diagnosis Differential Diagnoses: The differential diagnosis associated with the presentation includes (ACS, pneumonia, pneumothorax, pleural effusion, electrolyte abnormality, severe anemia, substance abuse) Admission/Observation Consideration of admission/observation: Escalation of care including admission/observation considered Consult Healthcare Provider Management of the patient was discussed with: Hospitalist (Dr Muñiz) Lab Data MDM Lab Attestation statement: I reviewed the patient's lab results. 06/24/23 13:41 06/24/23 13:41 Labs: Lab Results 06/24/23 06/24/23 Range/Units 13:41 15:14 WBC 6.7 (4.8-10.8) X10*3/uL RBC 4.84 (4.60-5.80) X10*6/uL Hgb 14.4 (14.0-18.0) g/dl Hct 44.2 (42.0-52.0) % MCV 91.3 (80.0-98.0) fL MCH 29.8 (27.0-33.0) pg MCHC 32.6 (31.0-36.0) g/dl RDW 16.5 H (11.0-16.0) % Plt Count 265 (160-400) X10*3/uL MPV 10.6 (9.4-12.4) fL Immature Gran % (Auto) 0.1 (0.0-0.4) % Neut % (Auto) 62.8 (45-73) % Lymph % (Auto) 23.1 (20-40) % Bollinger % (Auto) 11.8 H (2-11) % Eos % (Auto) 1.5 (0-4) % Baso % (Auto) 0.7 (0-2) % Lymph # (Auto) 1.5 (1.2-4.9) X10*3/uL Bollinger # (Auto) 0.8 (0.1-1.2) X10*3/uL Eos # (Auto) 0.1 (0.0-0.4) X10*3/uL Baso # (Auto) 0.1 (0.0-0.2) X10*3/uL Abs Immat Gran (auto) 0.01 (0.00-0.03) X10*3/uL Absolute Neuts (auto) 4.2 (2.0-8.3) x10*3/uL Absolute Nucleated RBC 0.000 (0.0-0.012) X10*3/uL Nucleated RBC % (auto) 0.0 (0.0-0.2) /100WBC Sodium 144 (135-145) mmol/L Potassium 4.3 (3.3-5.1) mmol/L Chloride 104 (96-108) mmol/L Carbon Dioxide 28 (22-29) mmol/L Anion Gap 16 (12-20) BUN 26 H (9-16) mg/dL Creatinine 0.89 (0.5-1.4) mg/dL Estim Creat Clear Calc 68.0 Estimated GFR > 60 Random Glucose 106 (60-115) mg/dL Calcium 10.0 (8.4-10.2) mg/dL Total Bilirubin 0.7 (0.0-1.0) mg/dL Direct Bilirubin 0.3 (0.0-0.5) mg/dL AST 67 H (5-37) U/L ALT 47 H (0-40) U/L Alkaline Phosphatase 58 (39-117) U/L Troponin I High Sens 100.5 H* D 98.6 H (<3.5-35.0) ng/L Total Protein 8.2 H (6.5-8.0) g/dL Albumin 4.3 (3.5-5.0) g/dL Lipase 5 L (8-78) U/L Independent Interpretation I performed an independent interpretation of an: EKG (Normal sinus rhythm at 82 beats per minutes, normal intervals, before no ST-T changes.) and Plain X-Ray (No acute intrathoracic pathology.) Radiology Impression Discussion of test interpretation with radiology: I have reviewed the radiologist's reading. Discharge Plan Discharge Clinical Impression: Non-ST elevated myocardial infarction (non-STEMI) Patient Disposition: Admitted As Inpatient
[2023-06-24 13:46] LABS: MANUAL DIFF FLAG NO
[2023-06-24 13:47] LABS: Basophils Absolute Auto 0.1 X10*3/uL (0.0-0.2); Basophils Percent Auto 0.7 % (0-2); Eosinophils Absolute Auto 0.1 X10*3/uL (0.0-0.4); Eosinophils Percent Auto 1.5 % (0-4); Hematocrit 44.2 % (42.0-52.0); Hemoglobin 14.4 g/dl (14.0-18.0); Imm Gran Abs Auto 0.01 X10*3/uL (0.00-0.03); Imm Gran Pct Auto 0.1 % (0.0-0.4); Lymphocytes Absolute Auto 1.5 X10*3/uL (1.2-4.9); Lymphocytes Percent Auto 23.1 % (20-40); Mean Corpuscular HGB Conc 32.6 g/dl (31.0-36.0); Mean Corpuscular Hemoglobin 29.8 pg (27.0-33.0); Mean Corpuscular Volume 91.3 fL (80.0-98.0); Mean Platelet Volume 10.6 fL (9.4-12.4); Monocytes Absolute Auto 0.8 X10*3/uL (0.1-1.2); Monocytes Percent Auto 11.8 % (2-11); Neutrophils Absolute Auto 4.2 x10*3/uL (2.0-8.3); Neutrophils Percent Auto 62.8 % (45-73); Platelet Count 265 X10*3/uL (160-400); Red Blood Count 4.84 X10*6/uL (4.60-5.80); Red Cell Distribution Width 16.5 % (11.0-16.0); White Blood Count 6.7 X10*3/uL (4.8-10.8)
[2023-06-24 14:02] LABS: Alanine Aminotransferase 47 U/L (0-40); Albumin Level 4.3 g/dL (3.5-5.0); Alkaline Phosphatase 58 U/L (39-117); Anion Gap 16 (12-20); Aspartate Amino Transferase 67 U/L (5-37); Bilirubin Direct 0.3 mg/dL (0.0-0.5); Bilirubin Total 0.7 mg/dL (0.0-1.0); Blood Urea Nitrogen 26 mg/dL (9-16); Carbon Dioxide 28 mmol/L (22-29); Chloride 104 mmol/L (96-108); Estimated Glomerular Filt Rate > 60; Glucose Random 106 mg/dL (60-115); Lipase 5 U/L (8-78); Potassium 4.3 mmol/L (3.3-5.1); Sodium 144 mmol/L (135-145); Total Protein 8.2 g/dL (6.5-8.0)
[2023-06-24 14:15] LABS: Troponin-I High Sensitivity 100.5 ng/L (<3.5-35.0)
[2023-06-24 14:21] VITALS: BP 122/80; PULSE 85; RESP 18; O2SAT 98
[2023-06-24 15:39] LABS: Troponin-I High Sensitivity 98.6 ng/L (<3.5-35.0)
[2023-06-24 16:42] LABS: C Reactive Protein 2.72 mg/dL (< or = 0.50)
[2023-06-24 16:49] VITALS: BMI 19.5
--- NOTE | 2023-06-24 16:56 | PM.IMHP ---
History of Present Illness Date of Service: 06/24/23 Chief Complaint: chest pain This history was taken in [place] from the patient. 58yo M with HIV [viral load undetectable 06/02/23, CD4 377 11/29/22, mild persistent asthma, history HCV, and history empyema of the lung who presents with 3 days of severe substernal sharp chest pain radiating down the left arm. Not associated with dyspnea or diaphoresis and not clearly exertional. He was just here in the ED on 06/18/23 after falling in a grocery store after tripping. He apparently overdosed on heroin and got Narcan. He denies using heroin but endorses using cocaine. He has bruises and pain all over his body from the fall. No fever but he does endorse cough. In the ED, initial troponin was 100.5; repeat was 98.6. Notably troponin was undetectable at last visit 06/18/23. No ischemic EKG changes. He was given aspirin and started on heparin drip. 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) Alcohol intake: current Alcohol intake frequency: does not drink Patient Tobacco Use Status: Never used Tobacco Second Hand Smoke Exposure: No Substance Use Type: Heroin Advance Directives Date on File: 04/25/21 service: No Current occupational status: disabled Meds Allergies Allergy/AdvReac Type Severity Reaction Status Date / Time Seasonal Allergies Allergy Intermediate Eye Verified 01/23/23 10:03 Drainage codeine Allergy Mild Rash Verified 02/13/23 08:33 [From Tylenol-Codeine #3] levofloxacin [From Levaquin] Allergy Mild Rash Verified 01/23/23 10:03 metoclopramide [From Reglan] Allergy Mild Rash Verified 01/23/23 10:03 acetaminophen Allergy Unknown Unknown Verified 01/23/23 10:03 [Tylenol-Codeine #3] Penicillins [PENICILLINS] Allergy Unknown Rash Verified 01/23/23 10:03 tramadol [From Ultram] AdvReac Mild Nausea and Verified 01/23/23 10:03 Vomiting ibuprofen [From Motrin] AdvReac Unknown Reflux Verified 02/13/23 08:33 Active Medications: Current Medications Acetaminophen (Acetaminophen 325 Mg Tablet) 650 mg PO Q4H PRN PRN Reason: mild pain Aspirin (Aspirin 81 Mg Tab.Chew) 81 mg PO DAILY [facility] Atorvastatin Calcium (Atorvastatin Calcium 80 Mg Tablet) 80 mg PO BEDTIME [facility] Heparin Sodium (Porcine) (Heparin Sodium,Porcine 5,000 Unit/Ml Vial) 2,200 unit 40 unit/kg (2200 unit) IVPUSH PROTOCOL BOLUS PRN; Protocol PRN Reason: 40 unit/kg - Heparin Protocol Heparin Sodium (Porcine) (Heparin Sodium,Porcine 5,000 Unit/Ml Vial) 4,400 unit 80 unit/kg (4400 unit) IVPUSH PROTOCOL BOLUS PRN; Protocol PRN Reason: 80 unit/kg - Heparin Protocol Heparin Sodium/Sodium Chloride (Heparin Sodium,Porcine/1/2ns) 25,000 unit in 250 mls @ 0 mls/hr IVCONT .Q0M [facility]; Protocol Morphine Sulfate (Morphine Sulfate 2 Mg/Ml Cartridge) 2 mg IVPUSH Q2H PRN; Protocol PRN Reason: Pain, Severe (Pain Scale 7-10) Nitroglycerin (Nitroglycerin 0.4 Mg Tab.Subl) 0.4 mg SUBLINGUAL Q5MX3 PRN PRN Reason: Chest Pain Ondansetron HCl (Ondansetron Hcl 4 Mg/2 Ml Vial) 4 mg IVPUSH Q8H PRN PRN Reason: nausea and mvoting Sodium Chloride (0.9 % Sodium Chloride Flush 3 Ml Syringe) 3 ml IVFLUSH QSHIFT [facility] Home Medications Medication Instructions Recorded Confirmed Last Taken Type amlodipine 5 mg tablet 5 mg PO DAILY 12/30/22 06/24/23 Unknown History bictegravir 50 mg-emtricitabine 1 tab PO DAILY 12/30/22 06/24/23 Unknown History 200 mg-tenofovir alafenam 25 mg tablet (Biktarvy) clonazepam 1 mg tablet 1 mg PO DAILY 12/30/22 06/24/23 Unknown History gabapentin 600 mg tablet 600 mg PO TID 12/30/22 06/24/23 Unknown History latanoprost 0.005 % eye drops 1 drp ophthalmic (eye) DAILY 12/30/22 06/24/23 Unknown History mirtazapine 30 mg tablet 60 mg PO BEDTIME 12/30/22 06/24/23 Unknown History tramadol 50 mg tablet 50 mg PO DAILY PRN Pain 12/30/22 06/24/23 Unknown History albuterol sulfate 90 mcg/actuation 2 puff inhalation Q6H PRN wheezing 02/12/23 06/24/23 Unknown History aerosol inhaler ferrous gluconate 324 mg (38 mg 324 mg PO QAM 02/12/23 06/24/23 06/20/23 History iron) tablet brimonidine 0.2 %-timolol 0.5 % 1 drp ophthalmic (eye) BID 06/01/23 06/24/23 Unknown History eye drops fluticasone propionate 230 2 puff inhalation BID 06/01/23 06/24/23 Unknown History mcg-salmeterol 21 mcg/actuation HFA inhaler (Advair HFA) risperidone 3 mg tablet 3 mg PO BEDTIME 06/01/23 06/24/23 Unknown History calcium carbonate 600 mg-vitamin 1 tab PO BID 06/24/23 06/24/23 Unknown History D3 10 mcg (400 unit) tablet (Calcium 600 + D(3)) Physical Exam Vital Signs and Narrative: Vital Signs: Last Vital Signs Temp 97.6 F 06/24/23 11:44 Pulse 85 06/24/23 14:21 Resp 18 06/24/23 14:21 BP 122/80 06/24/23 14:21 Pulse Ox 98 06/24/23 14:21 O2 Del Method Room Air 06/24/23 14:21 BMI result Body Mass Index 19.5 Gen: in no acute distress HEENT: sclera anicteric, moist mucus membranes Neck: supple Lungs: clear to auscultation bilaterally Heart: regular rate and rhythm, no murmurs Abd: soft, non-tender, non-distended Ext: no edema Skin: warm/well-perfused, multiple bruises Neuro: alert and oriented x3, no focal findings Psych: appropriate affect Results Labs 06/24/23 13:41 06/24/23 13:41 Labs: Laboratory Results - last 24 hr 06/24/23 06/24/23 13:41 15:14 MCV 91.3 MCH 29.8 MCHC 32.6 RDW 16.5 H Plt Count 265 MPV 10.6 Immature Gran % (Auto) 0.1 Neut % (Auto) 62.8 Lymph % (Auto) 23.1 Morton % (Auto) 11.8 H Eos % (Auto) 1.5 Baso % (Auto) 0.7 Lymph # (Auto) 1.5 Morton # (Auto) 0.8 Eos # (Auto) 0.1 Baso # (Auto) 0.1 Abs Immat Gran (auto) 0.01 Absolute Neuts (auto) 4.2 Absolute Nucleated RBC 0.000 Nucleated RBC % (auto) 0.0 Anion Gap 16 Estim Creat Clear Calc 68.0 Estimated GFR > 60 Random Glucose 106 Calcium 10.0 Total Bilirubin 0.7 Direct Bilirubin 0.3 AST 67 H ALT 47 H Alkaline Phosphatase 58 C-Reactive Protein 2.72 H Total Protein 8.2 H Albumin 4.3 Lipase 5 L Imaging Radiologist's Impressions: Impressions Chest X-Ray 06/24/23 14:28 IMPRESSION: Unremarkable chest exam. Assessment and Plan (1) Non-ST elevated myocardial infarction (non-STEMI): Status: Acute Plan This history was taken in [place] from the patient. 58yo M with HIV [viral load undetectable 06/02/23, CD4 377 11/29/22, mild persistent asthma, history HCV, and history empyema of the lung who presents with 3 days of severe substernal sharp chest pain radiating down the left arm. Not associated with dyspnea or diaphoresis and not clearly exertional. He was just here in the ED on 06/18/23 after falling in a grocery store after tripping. He apparently overdosed on heroin and got Narcan. He denies using heroin but endorses using cocaine. He has bruises and pain all over his body from the fall. No fever but he does endorse cough. In the ED, initial troponin was 100.5; repeat was 98.6. Notably troponin was undetectable at last visit 06/18/23. No ischemic EKG changes. He was given aspirin and started on heparin drip. troponin leak - admit to IMC, heparinize, ASA, avoid beta blockers due to cocaine abuse, consult cardiology, obtain echocardiogram polysubstance abuse - Addiction Medicine consultation HTN - amlodipine HIV - CD4 377 11/29/22, RNA undetectable 06/02/23; continue Biktarvy mild persistent asthma - continue ICS/LABA, prn albuterol mood disorder - risperidone, clonazepam, gabapentin, mirtazapine VTE ppx - on heparin gtt code - full I anticipate that the patient will stay at least 2 midnights as an inpatient in the hospital due to the above reasons. It is neither reasonable nor safe to care for them in a less acute setting. Time Spent With Patient Time: Total time managing care of this patient today ____ minutes. Quality Stroke Does the patient have a stroke diagnosis?: No VTE Prior VTE?: No VTE Risk Level:: Medical - moderate - high VTE Device Contraindication: N/A - Device Ordered VTE Drug Contraindication: N/A - Med Ordered
[2023-06-24 16:57] LABS: Hematocrit 41.8 % (42.0-52.0); Hemoglobin 13.8 g/dl (14.0-18.0); Mean Corpuscular Volume 90.9 fL (80.0-98.0); Mean Platelet Volume 11.2 fL (9.4-12.4); Platelet Count 258 X10*3/uL (160-400); Red Cell Distribution Width 16.6 % (11.0-16.0); White Blood Count 6.7 X10*3/uL (4.8-10.8)
[2023-06-24 17:05] LABS: INTERNATIONAL NORM RATIO 1.1 (0.9-1.1); Prothrombin Time 12.8 SEC (11.1-13.3)
--- NOTE | 2023-06-24 17:06 | PHA.MEDREC ---
Pharmacy Consult ? Medication Reconciliation Spoke with patient . 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 Pharmacy has completed the medication reconciliation.
[2023-06-24 17:08] VITALS: BP 109/82; PULSE 82; RESP 22
[2023-06-24] MEDS: Aspirin Enteric Coated 81 MG TABLET.DR PO (17:10)
[2023-06-24] MEDS: Heparin Sodium,Porcine/1/2NS 25,000 UNIT/250 ML IV.SOLN 6.56 UNIT IVCONT (18:14)
--- NOTE | 2023-06-24 18:24 | PC.NURSE ---
called kitchen for dinner tray
[2023-06-24 18:26] VITALS: BP 120/70; PULSE 77; RESP 17; O2SAT 95
[2023-06-24 19:09] LABS: Influenza A PCR NEGATIVE (Negative); Influenza B PCR NEGATIVE (Negative); Resp Syncy Virus RNA Qual PCR NEGATIVE (Negative); SARS COV2 PCR INHOUSE NEGATIVE (Negative)
[2023-06-24] MEDS: Morphine Sulfate 2 MG/ML CARTRIDGE IVPUSH ×2 (20:26→23:09)
[2023-06-24] MEDS: Atorvastatin Calcium 80 MG TABLET PO (22:21)
[2023-06-24] MEDS: Cholecalciferol (Vitamin D3) 10 MCG TABLET PO (22:21)
[2023-06-24] MEDS: Mirtazapine 30 MG TABLET 60 MG PO (22:21)
[2023-06-24] MEDS: risperiDONE 3 MG TABLET PO (22:21)
[2023-06-24] MEDS: Gabapentin 600 MG TABLET PO (22:22)
[2023-06-24 23:05] VITALS: BP 125/74; PULSE 75; RESP 25; TEMP 36.7; O2SAT 94
[2023-06-24] MEDS: timoloL maleate 0.5 % Oph Sol 5 ML DRBTL 1 DROP EYE-BOTH (23:37)
[2023-06-24] MEDS: Brimonidine Tartrate 0.2% Oph 5 ML BOTTLE 1 DROP EYE-BOTH (23:37)
--- NOTE | 2023-06-24 23:57 | PC.NURSE ---
PT alert and oriented. PT requested and provided jello. PT consumed 10% of dinner tray. Heparin drip continues to run at 12u/kg/hr. Pt reporting 9/10 chest pain. PT medicated as per NOV. VSS, Left wrist and forearm IV lines patent and intact. Pt reports he is unable to provide a urine sample at this time. Call jansen within reach. Plan of care on going.
[2023-06-25] VITALS (7 sets, daily range): BP systolic 94–130; BP diastolic 60–82; PULSE 63–69; RESP 17–20; TEMP 36.3–36.7; O2SAT 93–98; BMI 19.2
[2023-06-25 00:37] LABS: PTT Heparin Drip 48.7 SEC (53-77.9)
--- NOTE | 2023-06-25 00:45 | PC.NURSE ---
PTT-HD 6 hour results- 48.7. Heparin drip adjusted to 14 units/kg/hr. cosigned by RN, Carolina Awan.
[2023-06-25] MEDS: Morphine Sulfate 2 MG/ML CARTRIDGE IVPUSH ×3 (06:15→20:26)
[2023-06-25 06:49] LABS: Hematocrit 42.5 % (42.0-52.0); Mean Corpuscular HGB Conc 32.9 g/dl (31.0-36.0); Mean Corpuscular Hemoglobin 30.7 pg (27.0-33.0); Mean Corpuscular Volume 93.2 fL (80.0-98.0); Mean Platelet Volume 11.3 fL (9.4-12.4); Platelet Count 245 X10*3/uL (160-400); Red Blood Count 4.56 X10*6/uL (4.60-5.80); Red Cell Distribution Width 16.8 % (11.0-16.0); White Blood Count 5.9 X10*3/uL (4.8-10.8)
[2023-06-25 06:54] LABS: INTERNATIONAL NORM RATIO 1.1 (0.9-1.1)
--- NOTE | 2023-06-25 07:00 | CA_ITS ---
Transthoracic Echocardiogram Patient (Last, First, Middle): Benjamin Fall, Gender: Male Date of : 1965 Age: 58 Procedure Date: 06/25/2023 Procedure Type: Transthoracic Echocardiogram Location: ER Height: 167.64 cm Weight: 54.43 kg BSA: 1.61 m2 Heart Rate: 66 bpm BP: 105 / 69 mmHg Communication Signals Intelligence: MAGDALENA Referring MD: Timi Muñiz MD Symptoms: chest pain Study Quality: Technically Difficult/narrow ribs ECG Rhythm: Sinus Conclusions: - Difficult to assess LVEF; suspect about 40-45%. - The basal inferior and basal inferolateral segments are akinetic. - No obvious valvular pathology seen on this study. Findings Procedure Information Contrast agent, definity, is being given per protocol without apparent complications. Left Ventricle Normal left ventricular cavity size. There is normal left ventricular wall thickness. Diastolic function is normal for age. Difficult to assess LVEF; suspect about 40-45%. Wall Motion Rest Echo Findings The basal inferior and basal inferolateral segments are akinetic. Right Ventricle The right ventricle was not well visualized. Normal right ventricular cavity size. There is mild to moderately decreased right ventricular systolic function. Atria Both atria are normal in size. Aortic Valve The aortic valve was not well visualized. There is no aortic valve stenosis. There is no aortic valve regurgitation. Mitral Valve The mitral valve appears normal. There is no mitral valve regurgitation. There is no mitral valve stenosis. Pulmonic Valve The pulmonic valve is likely normal. Tricuspid Valve There is no tricuspid valve regurgitation. Tricuspid regurgitation envelope is inadequate for calculation of right ventricular systolic pressure. Great Vessels The aorta was not well visualized. Venous The inferior vena cava is normal in size and collapses less than 50% with inspiration. Pericardium/Pleural There is no evidence of pericardial effusion. Prior Study Comparison Changes noted compared to prior study dated: 11/27/2018. See comments on LVEF/wall motion. Recommendations, Care & Conclusions No obvious valvular pathology seen on this study. Measurements 2D Linear Measurements IVSd: 0.90 0.6-0.9/0.6-1.0 cm LVIDd: 4.70 3.9-5.3/4.2-5.9 cm LVIDd Index: 2.92 2.4-3.2/2.2-3.1 cm/m2 LVIDs: 3.80 2.0-3.6 cm LVPWd: 0.60 0.7-1.1 cm LA Diam: 2.40 2.7-3.8/3.0-4.0 cm LAIDs Index: 1.49 1.5-2.3 cm/m2 LV Mass: 139.89 67-162/88-224 g LV Mass Index: 86.89 43-95/49-115 g/m2 LVOT Diam: 2.30 3.0+(-)1.3 cm Mitral Valve MV Pk E: 0.30 MV PK A: 0.35 MV Decel Time: 279.00 E/A: 0.90 E'Lateral: 3.65 E'Medial: 7.51 E/E' Med: 4.00 E/E' Lat: 8.20 PHT: 82.00 MVA PHT: 2.68 Decel [place]: 1.07 Aortic Valve AoV Pk Shhaid: 0.88 AoV Mn Shahid: 0.57 AoV VTI: 0.13 AoV Pk Grad: 3.00 Aov Mn Grad: 2.00 JIM Cont.VTI: 2.90 LVOT LVOT Pk Shahid: 0.57 LVOT Mn Shahid: 0.39 LVOT VTI: 0.09 LVOT Pk Grad: 1.00 LVOT Mn Grad: 1.00 LVOT Diam: 2.30 LVOT Area: 4.15 Diastolic Function MV Pk E: 0.30 MV Pk A: 0.35 E/A: 0.90 E'Medial: 7.51 E/E' Med: 4.00 E' Laterial: 3.65 E/E' Lat: 8.20 Right Ventricle TAPSE (mm): 8.00 TVS' Shahid: 8.00 Tricuspid Valve RA Press: 8.00 Great Vessels Aorta Sinus of Valsalva: 2.80 2.0-3.5 cm Pulmonary Valve PV Pk Shahid: 0.92 Peak PV Grad: 3.00 Updated in Other Vendor System with Status of Final Panfilo Cardenas MD electronically signed on 06/25/2023 2:32:17 PM with status of Final
--- NOTE | 2023-06-25 07:13 | PC.NURSE ---
repeat cbc. ptt INR and ptt-hd drawn and sent down to lab.
[2023-06-25 07:16] LABS: PTT Heparin Drip 55.1 SEC (53-77.9)
[2023-06-25] MEDS: Aspirin 81 MG TAB.CHEW PO (08:56)
[2023-06-25] MEDS: Cholecalciferol (Vitamin D3) 10 MCG TABLET PO ×2 (08:56→20:26)
[2023-06-25] MEDS: Gabapentin 600 MG TABLET PO ×2 (08:56→20:26)
[2023-06-25] MEDS: clonazePAM 1 MG TABLET PO (08:56)
[2023-06-25] MEDS: amLODIPine Besylate 5 MG TABLET PO (08:56)
[2023-06-25] MEDS: Ferrous Sulfate 324 MG TABLET.DR PO (08:56)
[2023-06-25] MEDS: Fluticasone/Vilanterol 200/25 BLST.W.DEV 1 PUFF INHALE (08:57)
--- NOTE | 2023-06-25 11:22 | P.CONCA_ITS ---
History of Present Illness History of Present Illness Date of Service: 06/25/23 Chief complaint: chest pain Narrative: This is a cardiology consultation regarding question of NSTEMI. Patient with history of HIV, hep C, empyema the lung, asthma. He presents to the hospital with substernal chest pain as well as left arm pain. Few days back, he fell in a grocery store after tripping. Per notes, he overdosed on heroin and got Narcan. However, patient states he does not use heroin but rather uses cocaine. He has pain all over the body from the fall. Troponins were checked and they were on the higher side and hence we have been asked to see him. Patient denies any prior history of cardiac issues. No history of any coronary artery disease or myocardial infarction or cardiomyopathy or in fact any other cardiac issues in the past. Review of Systems 2 Review of Systems: Yes all other systems are reviewed and are negative Constitutional: Constitutional: Reports as per HPI and Reports no additional constitutional complaints Eyes: Eyes: Reports as per HPI and Denies no additional eye complaints ENT: Denies system reviewed and no additional complaints, except as documented and Reports as per HPI Cardiovascular: Cardiovascular: Reports as per HPI, Reports no additional cardiovascular complaints, Denies acrocyanosis, Denies cool extremities, Reports chest pain, Denies leg edema, Denies lightheadedness, Denies palpitations and Denies dyspnea Respiratory: Respiratory: Reports as per HPI, Denies no additional respiratory complaints and Denies dyspnea Gastrointestinal: Gastrointestinal: Reports as per HPI and Denies no additional gastrointestinal complaints Genitourinary: Genitourinary: Reports no additional male genitourinary complaints and Reports as per HPI Musculoskeletal: Musculoskeletal: Reports no additional musculoskeletal complaints and Reports as per HPI Integumentary/Breasts: Skin/Breast: Reports system reviewed and no additional complaints, except as docu Neurologic: Reports system reviewed and no additional complaints, except as documented and Reports as per HPI Psychiatric: Psychiatric: Reports no additional psychiatric complaints and Reports as per HPI Endocrine: Endocrine: Reports no additional endocrine complaints, Reports as per HPI and Denies palpitations Hematologic/Lymphatic: Hematologic/Lymphatic: Reports no additional hematologic/lymphatic complaints and Reports as per HPI Allergic/Immunologic: Allergic/Immunologic: Reports no additional allergic/immunologic complaints and Reports as per HPI PMFSH Past Medical History Medical History History of empyema of pleura (01/05/23) Hypertension Closed fracture of leg Hepatitis C Kidney stones Pleuritic chest pain Pneumonia Substance abuse Hemorrhoids Depression HIV (human immunodeficiency virus infection) Asthma Family History Pertinent family history: No pertinent family history relevant to this admission. Surgical History Surgical History H/O hemorrhoidectomy Social History Social History Household Members: None Housing: Apartment Do you presently have visiting nurse or other home services: Yes ([employer]) Alcohol intake: current Alcohol intake frequency: does not drink Patient Tobacco Use Status: Never used Tobacco Smoked in Last 30 Days: No Second Hand Smoke Exposure: No Use of substances other than those prescribed or required for medical reasons: No Substance Use Type: Heroin Advance Directives: Yes Advance Directives on File: Yes Advance Directives Date on File: 04/25/21 Nutrition Risks: No Nutritional Risk service: No Current occupational status: disabled Meds Allergies Allergy/AdvReac Type Severity Reaction Status Date / Time Seasonal Allergies Allergy Intermediate Eye Verified 01/23/23 10:03 Drainage codeine Allergy Mild Rash Verified 02/13/23 08:33 [From Tylenol-Codeine #3] levofloxacin [From Levaquin] Allergy Mild Rash Verified 01/23/23 10:03 metoclopramide [From Reglan] Allergy Mild Rash Verified 01/23/23 10:03 acetaminophen Allergy Unknown Unknown Verified 01/23/23 10:03 [Tylenol-Codeine #3] Penicillins [PENICILLINS] Allergy Unknown Rash Verified 01/23/23 10:03 tramadol [From Ultram] AdvReac Mild Nausea and Verified 01/23/23 10:03 Vomiting ibuprofen [From Motrin] AdvReac Unknown Reflux Verified 02/13/23 08:33 Active Medications: Current Medications Acetaminophen (Acetaminophen 325 Mg Tablet) 650 mg PO Q4H PRN PRN Reason: mild pain Albuterol Sulfate (Albuterol Sulfate 90 Mcg 8 Gm Inhaler) 2 puff INHALE Q6H PRN PRN Reason: wheezing Amlodipine Besylate (Amlodipine Besylate 5 Mg Tablet) 5 mg PO DAILY MICHAEL; Protocol Last Admin: 06/25/23 08:56 Dose: 5 mg Aspirin (Aspirin 81 Mg Tab.Chew) 81 mg PO DAILY [facility] Last Admin: 06/25/23 08:56 Dose: 81 mg Atorvastatin Calcium (Atorvastatin Calcium 80 Mg Tablet) 80 mg PO BEDTIME [facility] Last Admin: 06/24/23 22:21 Dose: 80 mg Bictegravir/Emtricitabine/Tenofovir (Bictegrav/Emtricit/Tenofov Ala Tablet) 1 tab PO DAILY [facility] Brimonidine Tartrate (Brimonidine Tartrate 0.2% Oph 5 Ml Bottle) 1 drop EYE- BOTH BID [facility] Last Admin: 06/24/23 23:37 Dose: 1 drop Calcium Carbonate (Calcium Carbonate 500 Mg Tablet) 500 mg PO BID [facility] Last Admin: 06/25/23 08:56 Dose: 500 mg Clonazepam (Clonazepam 1 Mg Tablet) 1 mg PO DAILY [facility] Last Admin: 06/25/23 08:56 Dose: 1 mg Ferrous Sulfate (Ferrous Sulfate 324 Mg Tablet.Dr) 324 mg PO DAILY [facility] Last Admin: 06/25/23 08:56 Dose: 324 mg Fluticasone/Vilanterol (Fluticasone/Vilanterol 200/25 Blst.W.Dev) 1 puff INHALE RDAILY [facility] Last Admin: 06/25/23 08:57 Dose: 1 puff Gabapentin (Gabapentin 600 Mg Tablet) 600 mg PO TID [facility] Last Admin: 06/25/23 08:56 Dose: 600 mg Heparin Sodium (Porcine) (Heparin Sodium,Porcine 5,000 Unit/Ml Vial) 2,200 unit 40 unit/kg (2200 unit) IVPUSH PROTOCOL BOLUS PRN; Protocol PRN Reason: 40 unit/kg - Heparin Protocol Heparin Sodium (Porcine) (Heparin Sodium,Porcine 5,000 Unit/Ml Vial) 4,400 unit 80 unit/kg (4400 unit) IVPUSH PROTOCOL BOLUS PRN; Protocol PRN Reason: 80 unit/kg - Heparin Protocol Heparin Sodium/Sodium Chloride (Heparin Sodium,Porcine/1/2ns) 25,000 unit in 250 mls @ 0 mls/hr IVCONT .Q0M [facility]; Protocol Last Titration: 06/25/23 07:30 Dose: 14 units/kg/hr, 7.66 mls/hr Latanoprost (Latanoprost 0.005 % Ophth Carol 2.5 Ml Drops) 1 drop EYE-BOTH DAILY [facility] Mirtazapine (Mirtazapine 30 Mg Tablet) 60 mg PO BEDTIME [facility] Last Admin: 06/24/23 22:21 Dose: 60 mg Morphine Sulfate (Morphine Sulfate 2 Mg/Ml Cartridge) 2 mg IVPUSH Q2H PRN; Protocol PRN Reason: Pain, Severe (Pain Scale 7-10) Last Admin: 06/25/23 06:15 Dose: 2 mg Nitroglycerin (Nitroglycerin 0.4 Mg Tab.Subl) 0.4 mg SUBLINGUAL Q5MX3 PRN PRN Reason: Chest Pain Ondansetron HCl (Ondansetron Hcl 4 Mg/2 Ml Vial) 4 mg IVPUSH Q8H PRN PRN Reason: nausea and mvoting Risperidone (Risperidone 3 Mg Tablet) 3 mg PO BEDTIME [facility] Last Admin: 06/24/23 22:21 Dose: 3 mg Sodium Chloride (0.9 % Sodium Chloride Flush 3 Ml Syringe) 3 ml IVFLUSH QSHIFT [facility] Last Admin: 06/25/23 08:57 Dose: Not Given Timolol Maleate (Timolol Maleate 0.5 % Oph Carol 5 Ml Drbtl) 1 drop EYE-BOTH BID [facility] Last Admin: 06/24/23 23:37 Dose: 1 drop Vitamin D (Cholecalciferol (Vitamin D3) 10 Mcg Tablet) 10 mcg PO BID [facility] Last Admin: 06/25/23 08:56 Dose: 10 mcg Home Medications Medication Instructions Recorded Confirmed Last Taken Type amlodipine 5 mg tablet 5 mg PO DAILY 12/30/22 06/24/23 Unknown History bictegravir 50 mg-emtricitabine 1 tab PO DAILY 12/30/22 06/24/23 Unknown History 200 mg-tenofovir alafenam 25 mg tablet (Biktarvy) clonazepam 1 mg tablet 1 mg PO DAILY 12/30/22 06/24/23 Unknown History gabapentin 600 mg tablet 600 mg PO TID 12/30/22 06/24/23 Unknown History latanoprost 0.005 % eye drops 1 drp ophthalmic (eye) DAILY 12/30/22 06/24/23 Unknown History mirtazapine 30 mg tablet 60 mg PO BEDTIME 12/30/22 06/24/23 Unknown History tramadol 50 mg tablet 50 mg PO DAILY PRN Pain 12/30/22 06/24/23 Unknown History albuterol sulfate 90 mcg/actuation 2 puff inhalation Q6H PRN wheezing 02/12/23 06/24/23 Unknown History aerosol inhaler ferrous gluconate 324 mg (38 mg 324 mg PO QAM 02/12/23 06/24/23 06/20/23 History iron) tablet brimonidine 0.2 %-timolol 0.5 % 1 drp ophthalmic (eye) BID 06/01/23 06/24/23 Unknown History eye drops fluticasone propionate 230 2 puff inhalation BID 06/01/23 06/24/23 Unknown History mcg-salmeterol 21 mcg/actuation HFA inhaler (Advair HFA) risperidone 3 mg tablet 3 mg PO BEDTIME 06/01/23 06/24/23 Unknown History calcium carbonate 600 mg-vitamin 1 tab PO BID 06/24/23 06/24/23 Unknown History D3 10 mcg (400 unit) tablet (Calcium 600 + D(3)) Physical Exam 2 Vital Signs: Vital Signs: Last Vital Signs Temp 97.7 F 06/25/23 07:37 Pulse 69 06/25/23 07:37 Resp 17 06/25/23 07:37 BP 115/72 06/25/23 07:37 Pulse Ox 95 06/25/23 07:37 O2 Del Method Room Air 06/25/23 07:37 BMI result Body Mass Index 19.5 Const: General: comfortable and no acute distress O rientation/consciousness: patient oriented x3 HEENT: Other: Unremarkable Head: Yes normal to inspection Neck: Neck: Yes normal visual inspection Chest: Chest palpation & inspection: normal inspection of the chest Resp: Auscultation: clear to auscultation bilaterally Cardio: Palpation: normal PMI Heart sounds: S1 normal heart sound present, S2 normal heart sound present, no gallops, no murmurs and no rubs GI: Palpation (GI): Soft to palpation Back/Spine/Pelvis: Other: unremarkable Skin: General skin exam: no rashes or lesions noted Neuro: General: patient oriented x3 Extrem: General: Yes normal to inspection Psych: Mental Status: mental status grossly normal Objective Labs and Meds 06/25/23 06:40 06/24/23 13:41 Lab results: Laboratory Results - last 24 hr 06/24/23 06/24/23 06/24/23 13:41 15:14 16:50 WBC 6.7 6.7 RBC 4.84 4.60 Hgb 14.4 13.8 L Hct 44.2 41.8 L MCV 91.3 90.9 MCH 29.8 30.0 MCHC 32.6 33.0 RDW 16.5 H 16.6 H Plt Count 265 258 MPV 10.6 11.2 Immature Gran % (Auto) 0.1 Neut % (Auto) 62.8 Lymph % (Auto) 23.1 [place] % (Auto) 11.8 H Eos % (Auto) 1.5 Baso % (Auto) 0.7 Lymph # (Auto) 1.5 [place] # (Auto) 0.8 Eos # (Auto) 0.1 Baso # (Auto) 0.1 Abs Immat Gran (auto) 0.01 Absolute Neuts (auto) 4.2 Absolute Nucleated RBC 0.000 0.000 Nucleated RBC % (auto) 0.0 0.0 PT 12.8 INR 1.1 aPTT Heparin Protocol 30.0 L Sodium 144 Potassium 4.3 Chloride 104 Carbon Dioxide 28 Anion Gap 16 BUN 26 H Creatinine 0.89 Estim Creat Clear Calc 68.0 Estimated GFR > 60 Random Glucose 106 Calcium 10.0 Total Bilirubin 0.7 Direct Bilirubin 0.3 AST 67 H ALT 47 H Alkaline Phosphatase 58 Total Creatine Kinase 3138 H Troponin I High Sens 100.5 H* D 98.6 H C-Reactive Protein 2.72 H Total Protein 8.2 H Albumin 4.3 Lipase 5 L Influenza Type A (PCR) Influenza Type B (PCR) RSV RNA Qual (PCR) SARS-CoV-2 RNA (RT-PCR) 06/24/23 06/25/23 06/25/23 18:27 00:15 06:40 WBC 5.9 RBC 4.56 L Hgb 14.0 Hct 42.5 MCV 93.2 MCH 30.7 MCHC 32.9 RDW 16.8 H Plt Count 245 MPV 11.3 Immature Gran % (Auto) Neut % (Auto) Lymph % (Auto) [place] % (Auto) Eos % (Auto) Baso % (Auto) Lymph # (Auto) [place] # (Auto) Eos # (Auto) Baso # (Auto) Abs Immat Gran (auto) Absolute Neuts (auto) Absolute Nucleated RBC 0.000 Nucleated RBC % (auto) 0.0 PT 13.0 INR 1.1 aPTT Heparin Protocol 48.7 L D Sodium Potassium Chloride Carbon Dioxide Anion Gap BUN Creatinine Estim Creat Clear Calc Estimated GFR Random Glucose Calcium Total Bilirubin Direct Bilirubin AST ALT Alkaline Phosphatase Total Creatine Kinase Troponin I High Sens C-Reactive Protein Total Protein Albumin Lipase Influenza Type A (PCR) NEGATIVE Influenza Type B (PCR) NEGATIVE RSV RNA Qual (PCR) NEGATIVE SARS-CoV-2 RNA (RT-PCR) NEGATIVE 06/25/23 06:45 WBC RBC Hgb Hct MCV MCH MCHC RDW Plt Count MPV Immature Gran % (Auto) Neut % (Auto) Lymph % (Auto) [place] % (Auto) Eos % (Auto) Baso % (Auto) Lymph # (Auto) [place] # (Auto) Eos # (Auto) Baso # (Auto) Abs Immat Gran (auto) Absolute Neuts (auto) Absolute Nucleated RBC Nucleated RBC % (auto) PT INR aPTT Heparin Protocol 55.1 Sodium Potassium Chloride Carbon Dioxide Anion Gap BUN Creatinine Estim Creat Clear Calc Estimated GFR Random Glucose Calcium Total Bilirubin Direct Bilirubin AST ALT Alkaline Phosphatase Total Creatine Kinase Troponin I High Sens C-Reactive Protein Total Protein Albumin Lipase Influenza Type A (PCR) Influenza Type B (PCR) RSV RNA Qual (PCR) SARS-CoV-2 RNA (RT-PCR) ECG Interpretation: EKG with sinus rhythm at 82/Min; no significant ST-T changes and otherwise unremarkable. Normal [place] and corrected QT. when compared to prior EKG, inferior T inversion seems to improve. Imaging Radiologist's impression: Impressions Chest X-Ray 06/24/23 14:28 IMPRESSION: Unremarkable chest exam. Assessment and Plan (1) Precordial chest pain: Status: Acute (2) Rhabdomyolysis: Qualifiers: Rhabdomyolysis type: traumatic Encounter type: initial encounter Qualified Code(s): T79.6XXA - Traumatic ischemia of muscle, initial encounter Status: Acute (3) Elevated troponin: Status: Acute Plan EKG not showing any acute changes. CK high at 3138. High sensitivity troponins are 100 followed by 98. Few days ago, it was normal. Few months ago, it was again on higher side. Overall, possibly resolved rhabdomyolysis causing elevated CK and slight elevation in troponin. Less likely that he is having active ACS. Per history, cocaine use and that could lead to some myocardial damage as well. Currently, he is being treated as ACS. We will get echocardiogram. May need perfusion imaging for ischemic evaluation. Will follow-up with you. Discussed with Dr. Muñiz. Time Spent With Patient Time: Total time managing care of this patient today ____ minutes. Procedures Date of Service Date of Service: 06/25/23
--- NOTE | 2023-06-25 11:34 | MHC.CM.PN ---
Addendum entered by Emily Foster 06/25/23 15:02: STACY RECEIVED A MESSAGE THAT A [facility] HAD CALLED SAYING THIS PT WAS ACTIVE WITH THEM CM CALLED GREGORIA AT [facility] TO DETERMINE THE AGENCY SHE STATED THEY DID NOT HAVE PT LISTED ACTIVE WITH A [facility], HOWEVER HE WAS RECENTLY WITH [facility] AND THEY MAY HAVE JUST NEGLECTED TO REQUEST UPDATED AUTH REFERRAL SENT TO THEM IN [place] TO CONFIRM PT IS ACTIVE AND DETERMIEN WHAT SERVICES HE RECEIVES Original Note: STACY MET WITH PT WHO HAD DIFFICULTY STAYING AWAKE AND FELL ASLEEP BETWEEN QUESTIONS HE WAS ABLE TO PROVIDE THE FOLLOWING INFORMATION: PT LIVES ALONE AND 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
[2023-06-25] MEDS: Brimonidine Tartrate 0.2% Oph 5 ML BOTTLE 1 DROP EYE-BOTH ×2 (11:52→20:36)
[2023-06-25] MEDS: timoloL maleate 0.5 % Oph Sol 5 ML DRBTL 1 DROP EYE-BOTH ×2 (11:52→20:36)
--- NOTE | 2023-06-25 11:56 | PC.NURSE ---
pt is very weak and unable to swallow pills properly. attempted with applesauce and crushed. Pt is pocketing food and liquid. provider notified
--- NOTE | 2023-06-25 12:35 | PC.NURSE ---
Dr. Alessandra TEJEDA came to assess pt after poor swallow. Ordered NPO for now with speech eval pending. awaiting new orders
--- NOTE | 2023-06-25 12:39 | PC.NURSE ---
waiting on eye drops to be brought up from pharmacy
--- NOTE | 2023-06-25 12:56 | PC.NURSE ---
no bruising, pitechea, or other signs of bleeding noted. pt sleeping. awaiting orders. per MD verbal, pt NPO pt this time. awaiting redraw ptt HD at 1330
[2023-06-25 13:40] LABS: PTT Heparin Drip 64.6 SEC (53-77.9)
--- NOTE | 2023-06-25 14:21 | MHC.SLORD ---
Speech Language Pathology Order Status: Swallow evaluation attempted, however Pt not able to tolerate moistened swabs or ice chips without closing his eyes and leaving them in his mouth. Pt deemed too lethargic to participate. RN informed, she reports he is waiting for a bed. He is currently on a Regular texture diet, recommending reducing to Puree Solids with Thin Liquids overnight. Pt should not be made to eat if he is unable to keep his eyes open. Attending MD (Dr. Aparicio) informed via secure message. SENIOR MORTGAGE UNDERWRITER will re-attempt tomorrow.
--- NOTE | 2023-06-25 14:32 | PC.NURSE ---
late entry - heparin drip rate unchanged after 1330 ptt HD. bruising in multiple stages of healing notes around old abrasions on left leg and left flank noted. MD notified.
[2023-06-25 14:49] LABS: Appearance Urine Clear; Color Urine Yellow; Glucose Urine UA Negative (Negative); Leukocyte Esterase Urine Negative (Negative); Nitrite Urine Negative (Negative); Urine Blood Negative (Negative); Urine Ketones Negative (Negative); Urine Protein Trace mg/dL (Neg-Trace)
[2023-06-25 14:57] LABS: Amphetamine Screen Urine Not Detected (Not Detect); Barbiturates, Urine Not Detected (Not Detect); Benzodiazepines Screen Urine POSITIVE (Not Detect); Cannabinoid Screen Urine Not Detected (Not Detect); Cocaine Screen Urine Not Detected (Not Detect); Fentanyl, urine POSITIVE (Not Detect); Opiate Screen Urine POSITIVE (Not Detect); Phencyclidine Screen Urine Not Detected (Not Detect)
--- NOTE | 2023-06-25 14:57 | MHC.RECOVSUP ---
Met with pt in ED18. Pt reports using about 2 small bags of cocaine nasally 1 time a week with his last use on Sunday. Pt does not report withdrawals and is being admitted.
--- NOTE | 2023-06-25 15:46 | PC.NURSE ---
per MD, morphine given via PRN orders for pain
--- NOTE | 2023-06-25 16:30 | HO.PM.IMPN ---
Subjective Subjective Date of Service: 06/25/23 Interval History: Complains of intermittent chest pain no worse than prior to admission Review of Systems Admits chest pain Denies shortness of breath Denies nausea vomiting diarrhea Denies fever chills Physical Exam Vital Signs: Vital Signs: Last Vital Signs Temp 97.7 F 06/25/23 07:37 Pulse 68 06/25/23 14:05 Resp 20 06/25/23 14:05 BP 106/73 06/25/23 14:05 Pulse Ox 98 06/25/23 14:05 O2 Del Method Nasal Cannula 06/25/23 14:05 O2 Flow Rate 2 06/25/23 14:05 BMI result Body Mass Index 19.5 Const: Other: Ill-appearing lying in bed Resp: Other: Clear to auscultation bilaterally no rales rhonchi or wheezes Cardio: Other: No S4; positive S1-S2; no S3 murmurs rubs gallops GI: Other: Soft nontender nondistended normoactive bowel sounds Extrem: Other: No edema bilateral Objective Data Active Medications Acetaminophen (Acetaminophen 325 Mg Tablet) 650 mg PO Q4H PRN PRN Reason: mild pain Albuterol Sulfate (Albuterol Sulfate 90 Mcg 8 Gm Inhaler) 2 puff INHALE Q6H PRN PRN Reason: wheezing Amlodipine Besylate (Amlodipine Besylate 5 Mg Tablet) 5 mg PO DAILY [facility]; Protocol Last Admin: 06/25/23 08:56 Dose: 5 mg Documented By: SWEETIE Aspirin (Aspirin 81 Mg Tab.Chew) 81 mg PO DAILY [facility] Last Admin: 06/25/23 08:56 Dose: 81 mg Documented By: SWEETIE Atorvastatin Calcium (Atorvastatin Calcium 80 Mg Tablet) 80 mg PO BEDTIME [facility] Last Admin: 06/24/23 22:21 Dose: 80 mg Documented By: MACARIO Bictegravir/Emtricitabine/Tenofovir (Bictegrav/Emtricit/Tenofov Ala Tablet) 1 tab PO DAILY [facility] Last Admin: 06/25/23 11:50 Dose: Not Given Documented By: SHANON Non-Admin Reason: dysphagia Brimonidine Tartrate (Brimonidine Tartrate 0.2% Oph 5 Ml Bottle) 1 drop EYE-BOTH BID [facility] Last Admin: 06/25/23 11:52 Dose: 1 drop Documented By: SHANON Calcium Carbonate (Calcium Carbonate 500 Mg Tablet) 500 mg PO BID [facility] Last Admin: 06/25/23 08:56 Dose: 500 mg Documented By: SWEETIE Clonazepam (Clonazepam 1 Mg Tablet) 1 mg PO DAILY [facility] Last Admin: 06/25/23 08:56 Dose: 1 mg Documented By: SWEETIE Ferrous Sulfate (Ferrous Sulfate 324 Mg Tablet.Dr) 324 mg PO DAILY [facility] Last Admin: 06/25/23 08:56 Dose: 324 mg Documented By: SWEETIE Fluticasone/Vilanterol (Fluticasone/Vilanterol 200/25 Blst.W.Dev) 1 puff INHALE RDAILY [facility] Last Admin: 06/25/23 08:57 Dose: 1 puff Documented By: SWEETIE Gabapentin (Gabapentin 600 Mg Tablet) 600 mg PO TID [facility] Last Admin: 06/25/23 08:56 Dose: 600 mg Documented By: SWEETIE Heparin Sodium (Porcine) (Heparin Sodium,Porcine 5,000 Unit/Ml Vial) 2,200 unit 40 unit/kg (2200 unit) IVPUSH PROTOCOL BOLUS PRN; Protocol PRN Reason: 40 unit/kg - Heparin Protocol Heparin Sodium (Porcine) (Heparin Sodium,Porcine 5,000 Unit/Ml Vial) 4,400 unit 80 unit/kg (4400 unit) IVPUSH PROTOCOL BOLUS PRN; Protocol PRN Reason: 80 unit/kg - Heparin Protocol Heparin Sodium/Sodium Chloride (Heparin Sodium,Porcine/1/2ns) 25,000 unit in 250 mls @ 0 mls/hr IVCONT .Q0M [facility]; Protocol Last Titration: 06/25/23 13:30 Dose: 14 units/kg/hr, 7.66 mls/hr Documented By: SHANON Co-signed By: MARIA EUGENIA Latanoprost (Latanoprost 0.005 % Ophth Carol 2.5 Ml Drops) 1 drop EYE-BOTH DAILY [facility] Mirtazapine (Mirtazapine 30 Mg Tablet) 60 mg PO BEDTIME [facility] Last Admin: 06/24/23 22:21 Dose: 60 mg Documented By: MACARIO Morphine Sulfate (Morphine Sulfate 2 Mg/Ml Cartridge) 2 mg IVPUSH Q2H PRN; Protocol PRN Reason: Pain, Severe (Pain Scale 7-10) Last Admin: 06/25/23 15:45 Dose: 2 mg Documented By: SHANON Nitroglycerin (Nitroglycerin 0.4 Mg Tab.Subl) 0.4 mg SUBLINGUAL Q5MX3 PRN PRN Reason: Chest Pain Ondansetron HCl (Ondansetron Hcl 4 Mg/2 Ml Vial) 4 mg IVPUSH Q8H PRN PRN Reason: nausea and mvoting Risperidone (Risperidone 3 Mg Tablet) 3 mg PO BEDTIME [facility] Last Admin: 06/24/23 22:21 Dose: 3 mg Documented By: MACARIO Sodium Chloride (0.9 % Sodium Chloride Flush 3 Ml Syringe) 3 ml IVFLUSH QSHIFT [facility] Last Admin: 06/25/23 08:57 Dose: Not Given Documented By: SWEETIE Non-Admin Reason: IV Running Timolol Maleate (Timolol Maleate 0.5 % Oph Carol 5 Ml Drbtl) 1 drop EYE-BOTH BID [facility] Last Admin: 06/25/23 11:52 Dose: 1 drop Documented By: SHANON Vitamin D (Cholecalciferol (Vitamin D3) 10 Mcg Tablet) 10 mcg PO BID [facility] Last Admin: 06/25/23 08:56 Dose: 10 mcg Documented By: SWEETIE Labs 06/25/23 06:40 06/24/23 13:41 Labs: Laboratory Results - last 24 hr 06/24/23 06/24/23 06/24/23 15:14 16:50 18:27 MCV 90.9 MCH 30.0 MCHC 33.0 RDW 16.6 H Plt Count 258 MPV 11.2 Absolute Nucleated RBC 0.000 Nucleated RBC % (auto) 0.0 PT 12.8 INR 1.1 aPTT Heparin Protocol 30.0 L Total Creatine Kinase 3138 H C-Reactive Protein 2.72 H Urine Color Urine Appearance Urine pH Ur Specific [place] Urine Protein Urine Glucose (UA) Urine Ketones Urine Blood Urine Nitrite Ur Leukocyte Esterase Urine Opiates Screen Urine Fentanyl Screen Ur Barbiturates Screen Ur Phencyclidine Scrn Ur Amphetamines Screen U Benzodiazepines Scrn Urine Cocaine Screen U Marijuana (THC) Screen Influenza Type A (PCR) NEGATIVE Influenza Type B (PCR) NEGATIVE RSV RNA Qual (PCR) NEGATIVE SARS-CoV-2 RNA (RT-PCR) NEGATIVE 06/25/23 06/25/23 06/25/23 00:15 06:40 06:45 MCV 93.2 MCH 30.7 MCHC 32.9 RDW 16.8 H Plt Count 245 MPV 11.3 Absolute Nucleated RBC 0.000 Nucleated RBC % (auto) 0.0 PT 13.0 INR 1.1 aPTT Heparin Protocol 48.7 L D 55.1 Total Creatine Kinase C-Reactive Protein Urine Color Urine Appearance Urine pH Ur Specific [place] Urine Protein Urine Glucose (UA) Urine Ketones Urine Blood Urine Nitrite Ur Leukocyte Esterase Urine Opiates Screen Urine Fentanyl Screen Ur Barbiturates Screen Ur Phencyclidine Scrn Ur Amphetamines Screen U Benzodiazepines Scrn Urine Cocaine Screen U Marijuana (THC) Screen Influenza Type A (PCR) Influenza Type B (PCR) RSV RNA Qual (PCR) SARS-CoV-2 RNA (RT-PCR) 06/25/23 06/25/23 13:21 14:39 MCV MCH MCHC RDW Plt Count MPV Absolute Nucleated RBC Nucleated RBC % (auto) PT INR aPTT Heparin Protocol 64.6 Total Creatine Kinase C-Reactive Protein Urine Color Yellow Urine Appearance Clear Urine pH 6.0 Ur Specific [place] 1.020 Urine Protein Trace Urine Glucose (UA) Negative Urine Ketones Negative Urine Blood Negative Urine Nitrite Negative Ur Leukocyte Esterase Negative Urine Opiates Screen POSITIVE H Urine Fentanyl Screen POSITIVE H Ur Barbiturates Screen Not Detected Ur Phencyclidine Scrn Not Detected Ur Amphetamines Screen Not Detected U Benzodiazepines Scrn POSITIVE H Urine Cocaine Screen Not Detected U Marijuana (THC) Screen Not Detected Influenza Type A (PCR) Influenza Type B (PCR) RSV RNA Qual (PCR) SARS-CoV-2 RNA (RT-PCR) Assessment and Plan (1) Precordial chest pain: Status: Acute (2) Rhabdomyolysis: Status: Acute Plan 58yo M with HIV [viral load undetectable 06/02/23, CD4 377 11/29/22, mild persistent asthma, history HCV, and history empyema of the lung who presents with 3 days of severe substernal sharp chest pain radiating down the left arm. Not associated with dyspnea or diaphoresis and not clearly exertional. He was just here in the ED on 06/18/23 after falling in a grocery store after tripping. He apparently overdosed on heroin and got Narcan. He denies using heroin but endorses using cocaine. He has bruises and pain all over his body from the fall. No fever but he does endorse cough. In the ED, initial troponin was 100.5; repeat was 98.6. Notably troponin was undetectable at last visit 06/18/23. No ischemic EKG changes. He was given aspirin and started on heparin drip. 1. Precordial chest pain - IV heparin as per protocol -ASA/statin -echo noted; further treatment as per Cardiology 2. Rhabdomyolysis -CKs trending downward -follow clinically. .. Hold fluids pending cardiac status 3.HTN -acceptable control on current therapies -adjust as indicated 4.HIV - CD4 377 11/29/22, RNA undetectable 06/02/23; -continue Biktarvy Will require ongoing hospitalization for IV heparin pending cardiology workup Time Spent With Patient Time: Total time managing care of this patient today ____ minutes. Quality Stroke Does the patient have a stroke diagnosis?: No VTE Prior VTE?: No VTE Risk Level:: Medical - moderate - high VTE Device Contraindication: N/A - Device Ordered VTE Drug Contraindication: N/A - Med Ordered
[2023-06-25] MEDS: Benzonatate 100 MG CAPSULE 200 MG PO (20:26)
[2023-06-25] MEDS: risperiDONE 3 MG TABLET PO (20:26)
[2023-06-25] MEDS: Mirtazapine 30 MG TABLET 60 MG PO (20:26)
[2023-06-25] MEDS: Atorvastatin Calcium 80 MG TABLET PO (20:26)
[2023-06-25] MEDS: Albuterol/Iprat 2.5/0.5MG 3 ML AMPUL.NEB INHALE (22:09)
[2023-06-26] VITALS (7 sets, daily range): BP systolic 100–131; BP diastolic 65–85; PULSE 54–79; RESP 16–18; TEMP 36.3–37.3; O2SAT 90–99
[2023-06-26] MEDS: Heparin Sodium,Porcine/1/2NS 25,000 UNIT/250 ML IV.SOLN 7.66 UNIT IVCONT (03:02)
[2023-06-26 07:35] LABS: MANUAL DIFF FLAG NO
[2023-06-26 07:41] LABS: Basophils Absolute Auto 0.1 X10*3/uL (0.0-0.2); Basophils Percent Auto 0.8 % (0-2); Eosinophils Absolute Auto 0.2 X10*3/uL (0.0-0.4); Eosinophils Percent Auto 3.3 % (0-4); Hematocrit 39.7 % (42.0-52.0); Imm Gran Abs Auto 0.01 X10*3/uL (0.00-0.03); Imm Gran Pct Auto 0.2 % (0.0-0.4); Lymphocytes Absolute Auto 1.8 X10*3/uL (1.2-4.9); Lymphocytes Percent Auto 29.4 % (20-40); Mean Corpuscular HGB Conc 32.7 g/dl (31.0-36.0); Mean Corpuscular Hemoglobin 30.3 pg (27.0-33.0); Mean Corpuscular Volume 92.5 fL (80.0-98.0); Mean Platelet Volume 11.7 fL (9.4-12.4); Monocytes Absolute Auto 0.7 X10*3/uL (0.1-1.2); Monocytes Percent Auto 11.2 % (2-11); Neutrophils Absolute Auto 3.3 x10*3/uL (2.0-8.3); Neutrophils Percent Auto 55.1 % (45-73); Platelet Count 239 X10*3/uL (160-400); Red Blood Count 4.29 X10*6/uL (4.60-5.80); Red Cell Distribution Width 16.3 % (11.0-16.0); White Blood Count 6.1 X10*3/uL (4.8-10.8)
[2023-06-26 07:53] LABS: PTT Heparin Drip 65.9 SEC (53-77.9)
[2023-06-26 08:00] LABS: Alanine Aminotransferase 43 U/L (0-40); Albumin Level 3.7 g/dL (3.5-5.0); Alkaline Phosphatase 56 U/L (39-117); Anion Gap 17 (12-20); Aspartate Amino Transferase 76 U/L (5-37); Bilirubin Total 0.6 mg/dL (0.0-1.0); Blood Urea Nitrogen 20 mg/dL (9-16); Calcium 9.4 mg/dL (8.4-10.2); Carbon Dioxide 26 mmol/L (22-29); Chloride 103 mmol/L (96-108); Estimated Glomerular Filt Rate > 60; Glucose Fasting 103 mg/dL (60-99); Potassium 4.1 mmol/L (3.3-5.1); Sodium 142 mmol/L (135-145)
[2023-06-26] MEDS: Fluticasone/Vilanterol 200/25 BLST.W.DEV 1 PUFF INHALE (08:43)
--- NOTE | 2023-06-26 08:48 | MHC.RECOVRN ---
Met with pt in 461 after consult placed to Addiction Medicine for cocaine use. Pt had presented to the ED for chest pain and was subsequently admitted for treatment of precordial chest pain and rhabdomyolysis. Pt sitting in bed, awake, alert, engages in conversation, poor historian. Pt reports using cocaine, [place], one sniff, 3x total. Pt also reports heroin use, 1 bag, [place], night [employer] and the night before that. Pt reports those were the only times he has used heroin. Per pts chart, pt had presented to ED on 06/18 and received Narcan in the ED with positive effect and had been positive for fentanyl at that time. Pt denies opioid withdrawal symptoms. Appears diaphoretic but otherwise comfortable. Denies questions or concerns for t/w. Discussed with Terese Lott APRN.
[2023-06-26] MEDS: 0.9 % Sodium Chloride Flush 3 ML SYRINGE IVFLUSH ×2 (09:29→20:00)
[2023-06-26] MEDS: Cholecalciferol (Vitamin D3) 10 MCG TABLET PO ×2 (09:29→19:59)
[2023-06-26] MEDS: clonazePAM 1 MG TABLET PO (09:29)
[2023-06-26] MEDS: Acetaminophen 325 MG TABLET 650 MG PO (09:29)
[2023-06-26] MEDS: amLODIPine Besylate 5 MG TABLET PO (09:29)
[2023-06-26] MEDS: Bictegrav/Emtricit/Tenofov Ala TABLET 1 TAB PO (09:29)
[2023-06-26] MEDS: Aspirin 81 MG TAB.CHEW PO (09:29)
[2023-06-26] MEDS: Gabapentin 600 MG TABLET PO ×3 (09:29→19:59)
[2023-06-26] MEDS: Ferrous Sulfate 324 MG TABLET.DR PO (09:29)
[2023-06-26] MEDS: timoloL maleate 0.5 % Oph Sol 5 ML DRBTL 1 DROP EYE-BOTH ×2 (09:30→19:59)
[2023-06-26] MEDS: Brimonidine Tartrate 0.2% Oph 5 ML BOTTLE 1 DROP EYE-BOTH ×2 (09:31→19:59)
--- NOTE | 2023-06-26 09:55 | P.PNCA_ITS ---
Subjective Subjective Date of Service: 06/26/23 Interval history: He complains of pleuritic-type chest pains with breathing but he also has pain elsewhere in the body including lower extremities. Review of Systems Review of Systems Yes all other systems are reviewed and are negative Constitutional: Reports as per HPI and Reports no additional constitutional complaints Eyes: Reports as per HPI and Denies no additional eye complaints Denies system reviewed and no additional complaints, except as documented and Reports as per HPI Cardiovascular: Reports as per HPI, Reports no additional cardiovascular complaints, Denies acrocyanosis, Denies cool extremities, Reports chest pain, Denies leg edema, Denies lightheadedness, Denies palpitations and Denies dyspnea Respiratory: Reports as per HPI, Denies no additional respiratory complaints and Denies dyspnea Gastrointestinal: Reports as per HPI and Denies no additional gastrointestinal complaints Genitourinary: Reports no additional male genitourinary complaints and Reports as per HPI Musculoskeletal: Reports no additional musculoskeletal complaints and Reports as per HPI Skin/Breast: Reports system reviewed and no additional complaints, except as docu Reports system reviewed and no additional complaints, except as documented and Reports as per HPI Psychiatric: Reports no additional psychiatric complaints and Reports as per HPI Endocrine: Reports no additional endocrine complaints, Reports as per HPI and Denies palpitations Hematologic/Lymphatic: Reports no additional hematologic/lymphatic complaints and Reports as per HPI Allergic/Immunologic: Reports no additional allergic/immunologic complaints and Reports as per HPI Physical Exam Vital Signs: Last Vital Signs Temp 98.1 F 06/26/23 08:00 Pulse 77 06/26/23 08:45 Resp 18 06/26/23 08:45 BP 114/69 06/26/23 08:00 Pulse Ox 96 06/26/23 08:00 O2 Del Method Nasal Cannula 06/26/23 08:00 O2 Flow Rate 2 06/26/23 08:00 BMI result Body Mass Index 19.2 Const General: comfortable and no acute distress Orientation/consciousness: patient oriented x3 HEENT Other: Unremarkable Head: Yes normal to inspection Neck Neck: Yes normal visual inspection Chest Chest palpation & inspection: normal inspection of the chest Resp Auscultation: clear to auscultation bilaterally Cardio Palpation: normal PMI Heart sounds: S1 normal heart sound present, S2 normal heart sound present, no gallops, no murmurs and no rubs GI Palpation (GI): Soft to palpation Back/Spine/Pelvis Other: unremarkable Skin General skin exam: no rashes or lesions noted Neuro General: patient oriented x3 Extrem General: Yes normal to inspection Psych Mental Status: mental status grossly normal Objective Labs and Meds 06/26/23 06:49 06/26/23 06:49 Lab results: Laboratory Results - last 24 hr 06/25/23 06/25/23 06/26/23 13:21 14:39 06:49 WBC 6.1 RBC 4.29 L Hgb 13.0 L Hct 39.7 L MCV 92.5 MCH 30.3 MCHC 32.7 RDW 16.3 H Plt Count 239 MPV 11.7 Immature Gran % (Auto) 0.2 Neut % (Auto) 55.1 Lymph % (Auto) 29.4 [place] % (Auto) 11.2 H Eos % (Auto) 3.3 Baso % (Auto) 0.8 Lymph # (Auto) 1.8 [place] # (Auto) 0.7 Eos # (Auto) 0.2 Baso # (Auto) 0.1 Abs Immat Gran (auto) 0.01 Absolute Neuts (auto) 3.3 Absolute Nucleated RBC 0.000 Nucleated RBC % (auto) 0.0 aPTT Heparin Protocol 64.6 65.9 Sodium 142 Potassium 4.1 Chloride 103 Carbon Dioxide 26 Anion Gap 17 BUN 20 H Creatinine 0.82 Estim Creat Clear Calc 74.0 Estimated GFR > 60 Fasting Glucose 103 H Calcium 9.4 Total Bilirubin 0.6 AST 76 H ALT 43 H Alkaline Phosphatase 56 Total Creatine Kinase 2613 H Total Protein 7.0 Albumin 3.7 Urine Color Yellow Urine Appearance Clear Urine pH 6.0 Ur Specific [place] 1.020 Urine Protein Trace Urine Glucose (UA) Negative Urine Ketones Negative Urine Blood Negative Urine Nitrite Negative Ur Leukocyte Esterase Negative Urine Opiates Screen POSITIVE H Urine Fentanyl Screen POSITIVE H Ur Barbiturates Screen Not Detected Ur Phencyclidine Scrn Not Detected Ur Amphetamines Screen Not Detected U Benzodiazepines Scrn POSITIVE H Urine Cocaine Screen Not Detected U Marijuana (THC) Screen Not Detected Progress Note: A&P Assessment and plan (1) Precordial chest pain: Status: Acute (2) Rhabdomyolysis: Status: Acute (3) Elevated troponin: Status: Acute Plan EKG not showing any acute changes. CK high at 3138, 2613. High sensitivity troponins are 100 followed by 98. Few days ago, it was normal. Few months ago, it was again on higher side. Echocardiogram shows diminished LVEF at 40-45%. Basal inferior/inferolateral akinesis. Due to image quality, difficult to accurately compare with the prior study from few years ago but the wall motion possibly noted in the past 2. Overall, possibly rhabdomyolysis causing elevated CK and slight elevation in troponin. Less likely that he is having active ACS. Per history, cocaine use and that could lead to some myocardial damage as well. Patient looks overall quite ill, weak, undernourished and deconditioned. Per Dr. Aparicio, there are swallowing issues as well. We can treat him for empirically CAD with aspirin, high-dose statins. Beta- blockers if he will stay off cocaine. IV heparin for total of [address] Aparicio. Time Spent With Patient Time: Total time managing care of this patient today ____ minutes. Progress Note: Quality Stroke Does the patient have a stroke diagnosis?: No Procedures Date of Service Date of Service: 06/26/23
[2023-06-26] MEDS: Morphine Sulfate 2 MG/ML CARTRIDGE IVPUSH ×2 (13:19→20:04)
[2023-06-26] MEDS: Benzonatate 100 MG CAPSULE 200 MG PO ×2 (13:22→20:04)
--- NOTE | 2023-06-26 15:31 | P.PNIM_ITS ---
Subjective Subjective Date of Service: 06/26/23 Interval History: No acute issues overnight. Remains on heparin drip Review of Systems Admits chest pain Denies shortness of breath Denies nausea vomiting diarrhea Denies fever chills Physical Exam 2 Vital Signs: Vital Signs: Last Vital Signs Temp 99.1 F 06/26/23 15:20 Pulse 79 06/26/23 15:20 Resp 16 06/26/23 15:20 BP 112/75 06/26/23 15:20 Pulse Ox 93 06/26/23 15:20 O2 Del Method Nasal Cannula 06/26/23 15:20 O2 Flow Rate 2 06/26/23 11:39 BMI result Body Mass Index 19.2 Const: Other: Ill-appearing lying in bed Resp: Other: Clear to auscultation bilaterally no rales rhonchi or wheezes Cardio: Other: No S4; positive S1-S2; no S3 murmurs rubs gallops GI: Other: Soft nontender nondistended normoactive bowel sounds Extrem: Other: No edema bilateral Objective Data Active Medications Acetaminophen (Acetaminophen 325 Mg Tablet) 650 mg PO Q4H PRN PRN Reason: mild pain Last Admin: 06/26/23 09:29 Dose: 650 mg Documented By: CIARA Albuterol Sulfate (Albuterol Sulfate 90 Mcg 8 Gm Inhaler) 2 puff INHALE Q6H PRN PRN Reason: wheezing Albuterol/Ipratropium (Albuterol/Iprat 2.5/0.5mg 3 Ml Ampul.Neb) 3 ml INHALE Q4H PRN PRN Reason: Wheezing Last Admin: 06/25/23 22:09 Dose: 3 ml Documented By: SEBAS Amlodipine Besylate (Amlodipine Besylate 5 Mg Tablet) 5 mg PO DAILY [facility]; Protocol Last Admin: 06/26/23 09:29 Dose: 5 mg Documented By: CIARA Aspirin (Aspirin 81 Mg Tab.Chew) 81 mg PO DAILY [facility] Last Admin: 06/26/23 09:29 Dose: 81 mg Documented By: CIARA Atorvastatin Calcium (Atorvastatin Calcium 80 Mg Tablet) 80 mg PO BEDTIME [facility] Last Admin: 06/25/23 20:26 Dose: 80 mg Documented By: ROSA Benzonatate (Benzonatate 100 Mg Capsule) 200 mg PO TID PRN PRN Reason: Cough Last Admin: 06/26/23 13:22 Dose: 200 mg Documented By: CIARA Bictegravir/Emtricitabine/Tenofovir (Bictegrav/Emtricit/Tenofov Ala Tablet) 1 tab PO DAILY [facility] Last Admin: 06/26/23 09:29 Dose: 1 tab Documented By: CIARA Brimonidine Tartrate (Brimonidine Tartrate 0.2% Oph 5 Ml Bottle) 1 drop EYE- BOTH BID [facility] Last Admin: 06/26/23 09:31 Dose: 1 drop Documented By: CIARA Calcium Carbonate (Calcium Carbonate 500 Mg Tablet) 500 mg PO BID [facility] Last Admin: 06/26/23 09:29 Dose: 500 mg Documented By: CIARA Clonazepam (Clonazepam 1 Mg Tablet) 1 mg PO DAILY [facility] Last Admin: 06/26/23 09:29 Dose: 1 mg Documented By: CIARA Ferrous Sulfate (Ferrous Sulfate 324 Mg Tablet.) 324 mg PO DAILY [facility] Last Admin: 06/26/23 09:29 Dose: 324 mg Documented By: CIARA Fluticasone/Vilanterol (Fluticasone/Vilanterol 200/25 Blst.W.Dev) 1 puff INHALE RDAILY [facility] Last Admin: 06/26/23 08:43 Dose: 1 puff Documented By: MIRTHA Gabapentin (Gabapentin 600 Mg Tablet) 600 mg PO TID [facility] Last Admin: 06/26/23 09:29 Dose: 600 mg Documented By: CIARA Heparin Sodium (Porcine) (Heparin Sodium,Porcine 5,000 Unit/Ml Vial) 2,200 unit 40 unit/kg (2200 unit) IVPUSH PROTOCOL BOLUS PRN; Protocol PRN Reason: 40 unit/kg - Heparin Protocol Heparin Sodium (Porcine) (Heparin Sodium,Porcine 5,000 Unit/Ml Vial) 4,400 unit 80 unit/kg (4400 unit) IVPUSH PROTOCOL BOLUS PRN; Protocol PRN Reason: 80 unit/kg - Heparin Protocol Heparin Sodium/Sodium Chloride (Heparin Sodium,Porcine/1/2ns) 25,000 unit in 250 mls @ 0 mls/hr IVCONT .Q0M [facility]; Protocol Last Titration: 06/26/23 07:30 Dose: 14 units/kg/hr, 7.66 mls/hr Documented By: CIARA Co-signed By: PARVIN Latanoprost (Latanoprost 0.005 % Ophth [place] 2.5 Ml Drops) 1 drop EYE-BOTH DAILY [facility] Last Admin: 06/26/23 09:32 Dose: Not Given Documented By: CIARA Non-Admin Reason: WAITING FOR PHARMACY TO BRING Mirtazapine (Mirtazapine 30 Mg Tablet) 60 mg PO BEDTIME [facility] Last Admin: 06/25/23 20:26 Dose: 60 mg Documented By: ROSA Morphine Sulfate (Morphine Sulfate 2 Mg/Ml Cartridge) 2 mg IVPUSH Q2H PRN; Protocol PRN Reason: Pain, Severe (Pain Scale 7-10) Last Admin: 06/26/23 13:19 Dose: 2 mg Documented By: CIARA Nitroglycerin (Nitroglycerin 0.4 Mg Tab.Subl) 0.4 mg SUBLINGUAL Q5MX3 PRN PRN Reason: Chest Pain Ondansetron HCl (Ondansetron Hcl 4 Mg/2 Ml Vial) 4 mg IVPUSH Q8H PRN PRN Reason: nausea and mvoting Risperidone (Risperidone 3 Mg Tablet) 3 mg PO BEDTIME [facility] Last Admin: 06/25/23 20:26 Dose: 3 mg Documented By: ROSA Sodium Chloride (0.9 % Sodium Chloride Flush 3 Ml Syringe) 3 ml IVFLUSH QSHIFT [facility] Last Admin: 06/26/23 09:29 Dose: 3 ml Documented By: CIARA Timolol Maleate (Timolol Maleate 0.5 % Oph [place] 5 Ml Drbtl) 1 drop EYE-BOTH BID [facility] Last Admin: 06/26/23 09:30 Dose: 1 drop Documented By: CIARA Vitamin D (Cholecalciferol (Vitamin D3) 10 Mcg Tablet) 10 mcg PO BID [facility] Last Admin: 06/26/23 09:29 Dose: 10 mcg Documented By: CIARA Labs 06/26/23 06:49 06/26/23 06:49 Labs: Laboratory Results - last 24 hr 06/26/23 06/26/23 06:49 13:44 MCV 92.5 MCH 30.3 MCHC 32.7 RDW 16.3 H Plt Count 239 MPV 11.7 Immature Gran % (Auto) 0.2 Neut % (Auto) 55.1 Lymph % (Auto) 29.4 [place] % (Auto) 11.2 H Eos % (Auto) 3.3 Baso % (Auto) 0.8 Lymph # (Auto) 1.8 [place] # (Auto) 0.7 Eos # (Auto) 0.2 Baso # (Auto) 0.1 Abs Immat Gran (auto) 0.01 Absolute Neuts (auto) 3.3 Absolute Nucleated RBC 0.000 Nucleated RBC % (auto) 0.0 aPTT Heparin Protocol 65.9 50.0 L D Anion Gap 17 Estim Creat Clear Calc 74.0 Estimated GFR > 60 Fasting Glucose 103 H Calcium 9.4 Total Bilirubin 0.6 AST 76 H ALT 43 H Alkaline Phosphatase 56 Total Creatine Kinase 2613 H Total Protein 7.0 Albumin 3.7 Assessment and Plan (1) Rhabdomyolysis: Status: Acute Plan 58yo M with HIV [viral load undetectable 06/02/23, CD4 377 11/29/22, mild persistent asthma, history HCV, and history empyema of the lung who presents with 3 days of severe substernal sharp chest pain radiating down the left arm. Not associated with dyspnea or diaphoresis and not clearly exertional. He was just here in the ED on 06/18/23 after falling in a grocery store after tripping. He apparently overdosed on heroin and got Narcan. He denies using heroin but endorses using cocaine. He has bruises and pain all over his body from the fall. No fever but he does endorse cough. In the ED, initial troponin was 100.5; repeat was 98.6. Notably troponin was undetectable at last visit 06/18/23. No ischemic EKG changes. He was given aspirin and started on heparin drip. 1. Precordial chest pain - IV heparin as per protocol -medical management; ASA/statin -echo noted; further treatment as per Cardiology 2. Rhabdomyolysis -CKs trending downward -follow clinically. .. Gentle IV fluids overnight 3.HTN -acceptable control on current therapies -adjust as indicated 4.HIV - CD4 377 11/29/22, RNA undetectable 06/02/23; -continue Biktarvy Will require ongoing hospitalization for IV heparin pending cardiology workup Time Spent With Patient Time: Total time managing care of this patient today ____ minutes. Quality Stroke Does the patient have a stroke diagnosis?: No VTE Prior VTE?: No VTE Risk Level:: Medical - moderate - high VTE Device Contraindication: N/A - Device Ordered VTE Drug Contraindication: N/A - Med Ordered
[2023-06-26] MEDS: Lactated Ringers 1,000 ML 80 ML IVCONT (16:12)
--- NOTE | 2023-06-26 16:21 | MHC.SL.SWA ---
Speech Pathologist Impression: Risk of Aspiration Due to: Weak Cough Dysphasia Diet Status: Liquid Consistency and Strategies for Safe Swallow: Liquid Intake Recommendation: Thin Solid Food Consistency: Dietary Recommendations: Pureed (NDD1) Additional Modifications to Solid Foods: Recommend NPO d/t large amount of pooling w/ various liquids and solids during lunch and PO trials w/ EXPANDER. Recommend meds NPO. If essential meds require PO administration, recommend pills w/ a small amount of puree solids. Ensure patient is provided enough time to swallow and clear oral cavity before presenting additional bites if needed. EXPANDER to re-evaluate tomorrow morning. RN on floor notified via phone. RN, hospitalist, RD notified via uControl. Oral Medication Intake: NPO Please contact the pharmacy regarding appropriate crushable or liquid drug formulations that are available whenever modified delivery is recommended. Compensatory Strategies and Precautions to be Taken for Safe Swallow: Sitting Upright (90 deg) Double Swallow Small Bites and Sips Alternate Liquids/Solids Oral Check Supervision While Eating and Drinking for Safe Swallow: Intermittent Supervision Foods to Avoid: Avoid difficult to chew solids. Swallowing Recommended Treatments: Compens. Strategy Educat. Recommendation for Speech: Inpatient Speech Therapy Comment: Pt downgraded to Puree Solids (NDD1) and Thin Liquids during inpatient admission. EXPANDER will continue to follow. Timeline to reassess: PRN Electronics Production Supervisor Clinican/Clinical Fellow: No Supervisory Statement: I have reviewed and agree with the student/clinical fellow's documentation: N/A Speech Language Pathologist: Robby Blanton M.A., [facility]
--- NOTE | 2023-06-26 17:27 | P.PNADD_ITS ---
Subjective Subjective Date of Service: 06/26/23 Reason For Visit: chest pain Interim History: Patient seen in follow up with manager recovery. Currently medically admitted with pneumonia following an overdose. Appearing quite frail, soft spoke, but awake and alert. Reporting that he believed he was using cocaine and not heroin/fentanyl. Denies any withdrawal sx. Denies frequent use. Inquired several ways about possible withdrawal, as patient appeared sick and diaphoretic. He denies all symptoms. Currently very weak and ill, remainder of interview deferred. Mental Status Exam Mental Status Exam Patient Appearance: Perspiring Level of Consciousness: Awake, Appropriate and Alert Patient Behavior: Appropriate Diagnostics Vital Signs (24Hr): Vital Signs - 24 hr 06/25/23 17:52 06/25/23 22:08 06/25/23 23:19 Temperature 97.9 F 98.0 F Pulse Rate 67 69 66 Respiratory Rate 20 18 18 Blood Pressure 110/75 94/60 Pulse Oximetry 95 93 Oxygen Delivery Method Room Air Nasal Cannula Oxygen Flow Rate 2 06/26/23 04:00 06/26/23 08:00 06/26/23 08:45 Temperature 97.3 F 98.1 F Pulse Rate 61 62 77 Respiratory Rate 16 18 18 Blood Pressure 131/85 114/69 Pulse Oximetry 99 96 Oxygen Delivery Method Nasal Cannula Nasal Cannula Oxygen Flow Rate 2 2 06/26/23 11:39 06/26/23 15:20 Temperature 99.0 F 99.1 F Pulse Rate 78 79 Respiratory Rate 18 16 Blood Pressure 100/65 112/75 Pulse Oximetry 95 93 Oxygen Delivery Method Nasal Cannula Oxygen Flow Rate 2 BMI result Body Mass Index 19.2 Labs 06/26/23 06:49 06/26/23 06:49 Labs: Laboratory Results - last 48 hr 06/24/23 06/25/23 06/25/23 18:27 00:15 06:40 WBC 5.9 RBC 4.56 L Hgb 14.0 Hct 42.5 MCV 93.2 MCH 30.7 MCHC 32.9 RDW 16.8 H Plt Count 245 MPV 11.3 Immature Gran % (Auto) Neut % (Auto) Lymph % (Auto) Preston % (Auto) Eos % (Auto) Baso % (Auto) Lymph # (Auto) Preston # (Auto) Eos # (Auto) Baso # (Auto) Abs Immat Gran (auto) Absolute Neuts (auto) Absolute Nucleated RBC 0.000 Nucleated RBC % (auto) 0.0 PT 13.0 INR 1.1 aPTT Heparin Protocol 48.7 L D Sodium Potassium Chloride Carbon Dioxide Anion Gap BUN Creatinine Estim Creat Clear Calc Estimated GFR Fasting Glucose Calcium Total Bilirubin AST ALT Alkaline Phosphatase Total Creatine Kinase Total Protein Albumin Urine Color Urine Appearance Urine pH Ur Specific [place] Urine Protein Urine Glucose (UA) Urine Ketones Urine Blood Urine Nitrite Ur Leukocyte Esterase Urine Opiates Screen Urine Fentanyl Screen Ur Barbiturates Screen Ur Phencyclidine Scrn Ur Amphetamines Screen U Benzodiazepines Scrn Urine Cocaine Screen U Marijuana (THC) Screen Influenza Type A (PCR) NEGATIVE Influenza Type B (PCR) NEGATIVE RSV RNA Qual (PCR) NEGATIVE SARS-CoV-2 RNA (RT-PCR) NEGATIVE 06/25/23 06/25/23 06/25/23 06:45 13:21 14:39 WBC RBC Hgb Hct MCV MCH MCHC RDW Plt Count MPV Immature Gran % (Auto) Neut % (Auto) Lymph % (Auto) Preston % (Auto) Eos % (Auto) Baso % (Auto) Lymph # (Auto) Preston # (Auto) Eos # (Auto) Baso # (Auto) Abs Immat Gran (auto) Absolute Neuts (auto) Absolute Nucleated RBC Nucleated RBC % (auto) PT INR aPTT Heparin Protocol 55.1 64.6 Sodium Potassium Chloride Carbon Dioxide Anion Gap BUN Creatinine Estim Creat Clear Calc Estimated GFR Fasting Glucose Calcium Total Bilirubin AST ALT Alkaline Phosphatase Total Creatine Kinase Total Protein Albumin Urine Color Yellow Urine Appearance Clear Urine pH 6.0 Ur Specific [place] 1.020 Urine Protein Trace Urine Glucose (UA) Negative Urine Ketones Negative Urine Blood Negative Urine Nitrite Negative Ur Leukocyte Esterase Negative Urine Opiates Screen POSITIVE H Urine Fentanyl Screen POSITIVE H Ur Barbiturates Screen Not Detected Ur Phencyclidine Scrn Not Detected Ur Amphetamines Screen Not Detected U Benzodiazepines Scrn POSITIVE H Urine Cocaine Screen Not Detected U Marijuana (THC) Screen Not Detected Influenza Type A (PCR) Influenza Type B (PCR) RSV RNA Qual (PCR) SARS-CoV-2 RNA (RT-PCR) 06/26/23 06/26/23 06:49 13:44 WBC 6.1 RBC 4.29 L Hgb 13.0 L Hct 39.7 L MCV 92.5 MCH 30.3 MCHC 32.7 RDW 16.3 H Plt Count 239 MPV 11.7 Immature Gran % (Auto) 0.2 Neut % (Auto) 55.1 Lymph % (Auto) 29.4 Preston % (Auto) 11.2 H Eos % (Auto) 3.3 Baso % (Auto) 0.8 Lymph # (Auto) 1.8 Preston # (Auto) 0.7 Eos # (Auto) 0.2 Baso # (Auto) 0.1 Abs Immat Gran (auto) 0.01 Absolute Neuts (auto) 3.3 Absolute Nucleated RBC 0.000 Nucleated RBC % (auto) 0.0 PT INR aPTT Heparin Protocol 65.9 50.0 L D Sodium 142 Potassium 4.1 Chloride 103 Carbon Dioxide 26 Anion Gap 17 BUN 20 H Creatinine 0.82 Estim Creat Clear Calc 74.0 Estimated GFR > 60 Fasting Glucose 103 H Calcium 9.4 Total Bilirubin 0.6 AST 76 H ALT 43 H Alkaline Phosphatase 56 Total Creatine Kinase 2613 H Total Protein 7.0 Albumin 3.7 Urine Color Urine Appearance Urine pH Ur Specific [place] Urine Protein Urine Glucose (UA) Urine Ketones Urine Blood Urine Nitrite Ur Leukocyte Esterase Urine Opiates Screen Urine Fentanyl Screen Ur Barbiturates Screen Ur Phencyclidine Scrn Ur Amphetamines Screen U Benzodiazepines Scrn Urine Cocaine Screen U Marijuana (THC) Screen Influenza Type A (PCR) Influenza Type B (PCR) RSV RNA Qual (PCR) SARS-CoV-2 RNA (RT-PCR) Imaging Radiology Impressions: ITS Impressions Chest X-Ray 06/24/23 14:28 IMPRESSION: Unremarkable chest exam. Medications Medications Current Medications Acetaminophen (Acetaminophen 325 Mg Tablet) 650 mg PO Q4H PRN PRN Reason: mild pain Last Admin: 06/26/23 09:29 Dose: 650 mg Albuterol Sulfate (Albuterol Sulfate 90 Mcg 8 Gm Inhaler) 2 puff INHALE Q6H PRN PRN Reason: wheezing Albuterol/Ipratropium (Albuterol/Iprat 2.5/0.5mg 3 Ml Ampul.Neb) 3 ml INHALE Q4H PRN PRN Reason: Wheezing Last Admin: 06/25/23 22:09 Dose: 3 ml Amlodipine Besylate (Amlodipine Besylate 5 Mg Tablet) 5 mg PO DAILY [facility]; Protocol Last Admin: 06/26/23 09:29 Dose: 5 mg Aspirin (Aspirin 81 Mg Tab.Chew) 81 mg PO DAILY [facility] Last Admin: 06/26/23 09:29 Dose: 81 mg Atorvastatin Calcium (Atorvastatin Calcium 80 Mg Tablet) 80 mg PO BEDTIME [facility] Last Admin: 06/25/23 20:26 Dose: 80 mg Benzonatate (Benzonatate 100 Mg Capsule) 200 mg PO TID PRN PRN Reason: Cough Last Admin: 06/26/23 13:22 Dose: 200 mg Bictegravir/Emtricitabine/Tenofovir (Bictegrav/Emtricit/Tenofov Ala Tablet) 1 tab PO DAILY [facility] Last Admin: 06/26/23 09:29 Dose: 1 tab Brimonidine Tartrate (Brimonidine Tartrate 0.2% Oph 5 Ml Bottle) 1 drop EYE- BOTH BID [facility] Last Admin: 06/26/23 09:31 Dose: 1 drop Calcium Carbonate (Calcium Carbonate 500 Mg Tablet) 500 mg PO BID [facility] Last Admin: 06/26/23 09:29 Dose: 500 mg Clonazepam (Clonazepam 1 Mg Tablet) 1 mg PO DAILY [facility] Last Admin: 06/26/23 09:29 Dose: 1 mg Ferrous Sulfate (Ferrous Sulfate 324 Mg Tablet.Dr) 324 mg PO DAILY [facility] Last Admin: 06/26/23 09:29 Dose: 324 mg Fluticasone/Vilanterol (Fluticasone/Vilanterol 200/25 Blst.W.Dev) 1 puff INHALE RDAILY [facility] Last Admin: 06/26/23 08:43 Dose: 1 puff Gabapentin (Gabapentin 600 Mg Tablet) 600 mg PO TID [facility] Last Admin: 06/26/23 16:11 Dose: 600 mg Heparin Sodium (Porcine) (Heparin Sodium,Porcine 5,000 Unit/Ml Vial) 2,200 unit 40 unit/kg (2200 unit) IVPUSH PROTOCOL BOLUS PRN; Protocol PRN Reason: 40 unit/kg - Heparin Protocol Heparin Sodium (Porcine) (Heparin Sodium,Porcine 5,000 Unit/Ml Vial) 4,400 unit 80 unit/kg (4400 unit) IVPUSH PROTOCOL BOLUS PRN; Protocol PRN Reason: 80 unit/kg - Heparin Protocol Heparin Sodium/Sodium Chloride (Heparin Sodium,Porcine/1/2ns) 25,000 unit in 250 mls @ 0 mls/hr IVCONT .Q0M [facility]; Protocol Last Titration: 06/26/23 15:44 Dose: 16 units/kg/hr, 8.75 mls/hr Lactated Ringer's (Lr) 1,000 mls @ 80 mls/hr IVCONT .[id number] [facility] Last Admin: 06/26/23 16:12 Dose: 80 mls/hr Latanoprost (Latanoprost 0.005 % Ophth Carol 2.5 Ml Drops) 1 drop EYE-BOTH DAILY [facility] Last Admin: 06/26/23 09:32 Dose: Not Given Mirtazapine (Mirtazapine 30 Mg Tablet) 60 mg PO BEDTIME [facility] Last Admin: 06/25/23 20:26 Dose: 60 mg Morphine Sulfate (Morphine Sulfate 2 Mg/Ml Cartridge) 2 mg IVPUSH Q2H PRN; Protocol PRN Reason: Pain, Severe (Pain Scale 7-10) Last Admin: 06/26/23 13:19 Dose: 2 mg Nitroglycerin (Nitroglycerin 0.4 Mg Tab.Subl) 0.4 mg SUBLINGUAL Q5MX3 PRN PRN Reason: Chest Pain Ondansetron HCl (Ondansetron Hcl 4 Mg/2 Ml Vial) 4 mg IVPUSH Q8H PRN PRN Reason: nausea and mvoting Risperidone (Risperidone 3 Mg Tablet) 3 mg PO BEDTIME [facility] Last Admin: 06/25/23 20:26 Dose: 3 mg Sodium Chloride (0.9 % Sodium Chloride Flush 3 Ml Syringe) 3 ml IVFLUSH QSHIFT [facility] Last Admin: 06/26/23 16:12 Dose: Not Given Timolol Maleate (Timolol Maleate 0.5 % Oph Carol 5 Ml Drbtl) 1 drop EYE-BOTH BID [facility] Last Admin: 06/26/23 09:30 Dose: 1 drop Vitamin D (Cholecalciferol (Vitamin D3) 10 Mcg Tablet) 10 mcg PO BID [facility] Last Admin: 06/26/23 09:29 Dose: 10 mcg Allergies Allergies Allergy/AdvReac Type Severity Reaction Status Date / Time Seasonal Allergies Allergy Intermediate Eye Verified 01/23/23 10:03 Drainage codeine Allergy Mild Rash Verified 02/13/23 08:33 [From Tylenol-Codeine #3] levofloxacin [From Levaquin] Allergy Mild Rash Verified 01/23/23 10:03 metoclopramide [From Reglan] Allergy Mild Rash Verified 01/23/23 10:03 acetaminophen Allergy Unknown Unknown Verified 01/23/23 10:03 [Tylenol-Codeine #3] Penicillins [PENICILLINS] Allergy Unknown Rash Verified 01/23/23 10:03 tramadol [From Ultram] AdvReac Mild Nausea and Verified 01/23/23 10:03 Vomiting ibuprofen [From Motrin] AdvReac Unknown Reflux Verified 02/13/23 08:33 Assessment & Plan Assessment & Plan (1) Opioid overdose: Qualifiers: Injury intent: accidental or unintentional Status: Acute Code(s): T40.2X1A - Poisoning by other opioids, accidental (unintentional), initial encounter Assessment and Plan: * harm reduction discussion with patient * no follow up indicated Total time managing care of this patient today _20___ minutes.
[2023-06-26] MEDS: Mirtazapine 30 MG TABLET 60 MG PO (19:58)
[2023-06-26] MEDS: Atorvastatin Calcium 80 MG TABLET PO (19:58)
[2023-06-26] MEDS: risperiDONE 3 MG TABLET PO (19:59)
[2023-06-27] VITALS (9 sets, daily range): BP systolic 110–131; BP diastolic 64–76; PULSE 55–95; RESP 14–20; TEMP 36.2–36.9; O2SAT 91–99
[2023-06-27 01:22] LABS: PTT Heparin Drip 72.2 SEC (53-77.9)
[2023-06-27] MEDS: Morphine Sulfate 2 MG/ML CARTRIDGE IVPUSH ×2 (02:43→17:24)
[2023-06-27] MEDS: Heparin Sodium,Porcine/1/2NS 25,000 UNIT/250 ML IV.SOLN 8.75 UNIT IVCONT (03:26)
[2023-06-27] MEDS: Lactated Ringers 1,000 ML 80 ML IVCONT ×2 (03:28→16:09)
[2023-06-27 07:35] LABS: MANUAL DIFF FLAG NO
[2023-06-27 07:40] LABS: Basophils Absolute Auto 0.1 X10*3/uL (0.0-0.2); Basophils Percent Auto 0.9 % (0-2); Eosinophils Absolute Auto 0.2 X10*3/uL (0.0-0.4); Eosinophils Percent Auto 3.2 % (0-4); Hematocrit 38.2 % (42.0-52.0); Hemoglobin 12.3 g/dl (14.0-18.0); Imm Gran Abs Auto 0.01 X10*3/uL (0.00-0.03); Imm Gran Pct Auto 0.2 % (0.0-0.4); Lymphocytes Absolute Auto 1.8 X10*3/uL (1.2-4.9); Lymphocytes Percent Auto 33.2 % (20-40); Mean Corpuscular HGB Conc 32.2 g/dl (31.0-36.0); Mean Corpuscular Hemoglobin 29.9 pg (27.0-33.0); Mean Corpuscular Volume 92.9 fL (80.0-98.0); Mean Platelet Volume 11.4 fL (9.4-12.4); Monocytes Absolute Auto 0.7 X10*3/uL (0.1-1.2); Monocytes Percent Auto 12.2 % (2-11); Neutrophils Absolute Auto 2.7 x10*3/uL (2.0-8.3); Neutrophils Percent Auto 50.3 % (45-73); Platelet Count 230 X10*3/uL (160-400); Red Blood Count 4.11 X10*6/uL (4.60-5.80); White Blood Count 5.4 X10*3/uL (4.8-10.8)
[2023-06-27] MEDS: Fluticasone/Vilanterol 200/25 BLST.W.DEV 1 PUFF INHALE (07:48)
[2023-06-27] MEDS: Gabapentin 600 MG TABLET PO ×3 (09:13→20:44)
[2023-06-27] MEDS: Ferrous Sulfate 324 MG TABLET.DR PO (09:13)
[2023-06-27] MEDS: Aspirin 81 MG TAB.CHEW PO (09:13)
[2023-06-27] MEDS: Bictegrav/Emtricit/Tenofov Ala TABLET 1 TAB PO (09:13)
[2023-06-27] MEDS: Cholecalciferol (Vitamin D3) 10 MCG TABLET PO ×2 (09:13→20:45)
[2023-06-27] MEDS: amLODIPine Besylate 5 MG TABLET PO (09:14)
[2023-06-27] MEDS: clonazePAM 1 MG TABLET PO (09:14)
[2023-06-27] MEDS: Brimonidine Tartrate 0.2% Oph 5 ML BOTTLE 1 DROP EYE-BOTH ×2 (09:15→20:45)
[2023-06-27] MEDS: timoloL maleate 0.5 % Oph Sol 5 ML DRBTL 1 DROP EYE-BOTH ×2 (09:15→20:44)
--- NOTE | 2023-06-27 11:10 | MHC.SLORD ---
Speech Language Pathology Order Status: MANAGED CARE SPECIALIST attempted to see patient for f/u. Patient awoke to verbal stimuli then declined PO trials w/ MANAGED CARE SPECIALIST. MANAGED CARE SPECIALIST to continue to follow.
--- NOTE | 2023-06-27 12:46 | MHC.CM.PN ---
EMR reviewed. Per MD rounds pt not medically cleared for dc at this time and will require a PT eval. CM will continue to follow.
--- NOTE | 2023-06-27 14:47 | HO.PM.IMPN ---
Subjective Subjective Date of Service: 06/27/23 Interval History: Continues to be very weak and fatigued. No further complaints of chest pain Review of Systems Admits chest pain Denies shortness of breath Denies nausea vomiting diarrhea Denies fever chills Physical Exam Vital Signs: Vital Signs: Last Vital Signs Temp 97.9 F 06/27/23 11:57 Pulse 66 06/27/23 11:57 Resp 20 06/27/23 11:57 BP 110/67 06/27/23 11:57 Pulse Ox 92 06/27/23 11:57 O2 Del Method Nasal Cannula 06/27/23 11:57 O2 Flow Rate 2 06/27/23 11:57 BMI result Body Mass Index 19.2 Const: Other: Ill-appearing lying in bed Resp: Other: Clear to auscultation bilaterally no rales rhonchi or wheezes Cardio: Other: No S4; positive S1-S2; no S3 murmurs rubs gallops GI: Other: Soft nontender nondistended normoactive bowel sounds Extrem: Other: No edema bilateral Objective Data Active Medications Acetaminophen (Acetaminophen 325 Mg Tablet) 650 mg PO Q4H PRN PRN Reason: mild pain Last Admin: 06/26/23 09:29 Dose: 650 mg Documented By: CIARA Albuterol Sulfate (Albuterol Sulfate 90 Mcg 8 Gm Inhaler) 2 puff INHALE Q6H PRN PRN Reason: wheezing Albuterol/Ipratropium (Albuterol/Iprat 2.5/0.5mg 3 Ml Ampul.Neb) 3 ml INHALE Q4H PRN PRN Reason: Wheezing Last Admin: 06/25/23 22:09 Dose: 3 ml Documented By: SEBAS Amlodipine Besylate (Amlodipine Besylate 5 Mg Tablet) 5 mg PO DAILY [facility]; Protocol Last Admin: 06/27/23 09:14 Dose: 5 mg Documented By: BRANDON Aspirin (Aspirin 81 Mg Tab.Chew) 81 mg PO DAILY [facility] Last Admin: 06/27/23 09:13 Dose: 81 mg Documented By: BRANDON Atorvastatin Calcium (Atorvastatin Calcium 80 Mg Tablet) 80 mg PO BEDTIME [facility] Last Admin: 06/26/23 19:58 Dose: 80 mg Documented By: BHARGAVI Benzonatate (Benzonatate 100 Mg Capsule) 200 mg PO TID PRN PRN Reason: Cough Last Admin: 06/26/23 20:04 Dose: 200 mg Documented By: BHARGAVI Bictegravir/Emtricitabine/Tenofovir (Bictegrav/Emtricit/Tenofov Ala Tablet) 1 tab PO DAILY [facility] Last Admin: 06/27/23 09:13 Dose: 1 tab Documented By: BRANDON Brimonidine Tartrate (Brimonidine Tartrate 0.2% Oph 5 Ml Bottle) 1 drop EYE-BOTH BID [facility] Last Admin: 06/27/23 09:15 Dose: 1 drop Documented By: BRANDON Calcium Carbonate (Calcium Carbonate 500 Mg Tablet) 500 mg PO BID [facility] Last Admin: 06/27/23 09:13 Dose: 500 mg Documented By: BRANDON Clonazepam (Clonazepam 1 Mg Tablet) 1 mg PO DAILY [facility] Last Admin: 06/27/23 09:14 Dose: 1 mg Documented By: BRANDON Ferrous Sulfate (Ferrous Sulfate 324 Mg Tablet.Dr) 324 mg PO DAILY [facility] Last Admin: 06/27/23 09:13 Dose: 324 mg Documented By: BRANDON Fluticasone/Vilanterol (Fluticasone/Vilanterol 200/25 Blst.W.Dev) 1 puff INHALE RDAILY [facility] Last Admin: 06/27/23 07:48 Dose: 1 puff Documented By: NEFTALY Gabapentin (Gabapentin 600 Mg Tablet) 600 mg PO TID [facility] Last Admin: 06/27/23 09:13 Dose: 600 mg Documented By: BRANDON Lactated Ringer's (Lr) 1,000 mls @ 80 mls/hr IVCONT .[id number] [facility] Last Admin: 06/27/23 03:28 Dose: 80 mls/hr Documented By: BHARGAVI Latanoprost (Latanoprost 0.005 % Ophth Carol 2.5 Ml Drops) 1 drop EYE-BOTH DAILY [facility] Last Admin: 06/26/23 09:32 Dose: Not Given Documented By: CIARA Non-Admin Reason: WAITING FOR PHARMACY TO BRING Mirtazapine (Mirtazapine 30 Mg Tablet) 60 mg PO BEDTIME [facility] Last Admin: 06/26/23 19:58 Dose: 60 mg Documented By: BHARGAVI Morphine Sulfate (Morphine Sulfate 2 Mg/Ml Cartridge) 2 mg IVPUSH Q2H PRN; Protocol PRN Reason: Pain, Severe (Pain Scale 7-10) Last Admin: 06/27/23 02:43 Dose: 2 mg Documented By: RAS Nitroglycerin (Nitroglycerin 0.4 Mg Tab.Subl) 0.4 mg SUBLINGUAL Q5MX3 PRN PRN Reason: Chest Pain Ondansetron HCl (Ondansetron Hcl 4 Mg/2 Ml Vial) 4 mg IVPUSH Q8H PRN PRN Reason: nausea and mvoting Risperidone (Risperidone 3 Mg Tablet) 3 mg PO BEDTIME [facility] Last Admin: 06/26/23 19:59 Dose: 3 mg Documented By: BHARGAVI Sodium Chloride (0.9 % Sodium Chloride Flush 3 Ml Syringe) 3 ml IVFLUSH QSHIFT [facility] Last Admin: 06/27/23 09:14 Dose: Not Given Documented By: BRANDON Non-Admin Reason: IV Running Timolol Maleate (Timolol Maleate 0.5 % Oph Carol 5 Ml Drbtl) 1 drop EYE-BOTH BID [facility] Last Admin: 06/27/23 09:15 Dose: 1 drop Documented By: BRANDON Vitamin D (Cholecalciferol (Vitamin D3) 10 Mcg Tablet) 10 mcg PO BID [facility] Last Admin: 06/27/23 09:13 Dose: 10 mcg Documented By: BRANDON Labs 06/27/23 06:47 06/26/23 06:49 Labs: Laboratory Results - last 24 hr 06/26/23 06/27/23 06/27/23 19:15 01:04 01:04 MCV MCH MCHC RDW Plt Count MPV Immature Gran % (Auto) Neut % (Auto) Lymph % (Auto) Long % (Auto) Eos % (Auto) Baso % (Auto) Lymph # (Auto) Long # (Auto) Eos # (Auto) Baso # (Auto) Abs Immat Gran (auto) Absolute Neuts (auto) Absolute Nucleated RBC Nucleated RBC % (auto) aPTT Heparin Protocol 60.0 72.2 D Cancelled 06/27/23 06:47 MCV 92.9 MCH 29.9 MCHC 32.2 RDW 16.0 Plt Count 230 MPV 11.4 Immature Gran % (Auto) 0.2 Neut % (Auto) 50.3 Lymph % (Auto) 33.2 Long % (Auto) 12.2 H Eos % (Auto) 3.2 Baso % (Auto) 0.9 Lymph # (Auto) 1.8 Long # (Auto) 0.7 Eos # (Auto) 0.2 Baso # (Auto) 0.1 Abs Immat Gran (auto) 0.01 Absolute Neuts (auto) 2.7 Absolute Nucleated RBC 0.000 Nucleated RBC % (auto) 0.0 aPTT Heparin Protocol Assessment and Plan (1) Precordial chest pain: Status: Acute (2) Rhabdomyolysis: Status: Acute Plan 58yo M with HIV [viral load undetectable 06/02/23, CD4 377 11/29/22, mild persistent asthma, history HCV, and history empyema of the lung who presents with 3 days of severe substernal sharp chest pain radiating down the left arm. Not associated with dyspnea or diaphoresis and not clearly exertional. He was just here in the ED on 06/18/23 after falling in a grocery store after tripping. He apparently overdosed on heroin and got Narcan. He denies using heroin but endorses using cocaine. He has bruises and pain all over his body from the fall. No fever but he does endorse cough. In the ED, initial troponin was 100.5; repeat was 98.6. Notably troponin was undetectable at last visit 06/18/23. No ischemic EKG changes. He was given aspirin and started on heparin drip. 1. Precordial chest pain - IV heparin DC and after 48 hours -medical management; ASA/statin -echo noted; conservative therapies 2. Rhabdomyolysis -CKs trending downward -follow clinically. .. Gentle IV fluids overnight 3.HTN -acceptable control on current therapies -adjust as indicated 4.HIV - CD4 377 11/29/22, RNA undetectable 06/02/23; -continue Biktarvy Will require ongoing hospitalization for IV heparin pending cardiology workup Time Spent With Patient Time: Total time managing care of this patient today ____ minutes. Quality Stroke Does the patient have a stroke diagnosis?: No VTE Prior VTE?: No VTE Risk Level:: Medical - moderate - high VTE Device Contraindication: N/A - Device Ordered VTE Drug Contraindication: N/A - Med Ordered
[2023-06-27] MEDS: 0.9 % Sodium Chloride Flush 3 ML SYRINGE IVFLUSH (16:09)
[2023-06-27] MEDS: Benzonatate 100 MG CAPSULE 200 MG PO (17:14)
[2023-06-27] MEDS: risperiDONE 3 MG TABLET PO (20:45)
[2023-06-27] MEDS: Mirtazapine 30 MG TABLET 60 MG PO (20:45)
[2023-06-27] MEDS: Atorvastatin Calcium 80 MG TABLET PO (20:45)
[2023-06-27] MEDS: Albuterol/Iprat 2.5/0.5MG 3 ML AMPUL.NEB INHALE (21:04)
[2023-06-28] VITALS (12 sets, daily range): BP systolic 83–146; BP diastolic 53–96; PULSE 78–105; RESP 15–24; TEMP 36.6–37.4; O2SAT 89–98
[2023-06-28] MEDS: 0.9 % Sodium Chloride Flush 3 ML SYRINGE IVFLUSH ×3 (00:34→22:37)
[2023-06-28] MEDS: Benzonatate 100 MG CAPSULE 200 MG PO ×2 (00:38→14:13)
[2023-06-28] MEDS: Albuterol/Iprat 2.5/0.5MG 3 ML AMPUL.NEB INHALE ×3 (01:42→22:17)
--- NOTE | 2023-06-28 01:55 | MHC.PIE ---
Addendum entered by Mariam Gresham RN 06/28/23 07:26: CORRECTION TO O2.NASAL CANNULA WAS 4L NOT 1L NOTED IN THE NOTES. Original Note: P.INCREASED CONGESTION I.PT NOTED TO HAVE INCREASED CONGESTION,WEAK COUGH,SAT 90% ON O2 1L.MED WITH TESSALON WITH LITTLE EFFECT.UPDRAFT GIVEN BY RESPIRATORY.PT STATES HE FELT A LITTLE BETTER AFTER THE UPDRAFT.DR IRBY UPDATED.STAT CXR ORDERED.O2 CHANGED TO OXYMASK AT 6L WITH IMPROVEMENT TO SAT TO 93%. E.CXR NEGATIVE,CONT TO MONITOR.
[2023-06-28] MEDS: Lactated Ringers 1,000 ML 80 ML IVCONT (05:04)
[2023-06-28 07:32] LABS: MANUAL DIFF FLAG NO
[2023-06-28 07:51] LABS: Basophils Percent Auto 0.4 % (0-2); Eosinophils Absolute Auto 0.1 X10*3/uL (0.0-0.4); Eosinophils Percent Auto 1.4 % (0-4); Hematocrit 41.8 % (42.0-52.0); Hemoglobin 13.9 g/dl (14.0-18.0); Imm Gran Abs Auto 0.04 X10*3/uL (0.00-0.03); Imm Gran Pct Auto 0.4 % (0.0-0.4); Lymphocytes Absolute Auto 0.5 X10*3/uL (1.2-4.9); Mean Corpuscular HGB Conc 33.3 g/dl (31.0-36.0); Mean Corpuscular Hemoglobin 30.3 pg (27.0-33.0); Mean Corpuscular Volume 91.1 fL (80.0-98.0); Mean Platelet Volume 11.5 fL (9.4-12.4); Monocytes Absolute Auto 0.6 X10*3/uL (0.1-1.2); Monocytes Percent Auto 6.1 % (2-11); Neutrophils Percent Auto 86.7 % (45-73); Platelet Count 239 X10*3/uL (160-400); Red Blood Count 4.59 X10*6/uL (4.60-5.80); Red Cell Distribution Width 16.1 % (11.0-16.0); White Blood Count 9.2 X10*3/uL (4.8-10.8)
[2023-06-28] MEDS: Fluticasone/Vilanterol 200/25 BLST.W.DEV 1 PUFF INHALE (08:10)
[2023-06-28] MEDS: Cholecalciferol (Vitamin D3) 10 MCG TABLET PO ×2 (08:39→22:27)
[2023-06-28] MEDS: Acetaminophen 325 MG TABLET 650 MG PO ×2 (08:40→20:00)
[2023-06-28] MEDS: Bictegrav/Emtricit/Tenofov Ala TABLET 1 TAB PO (08:41)
[2023-06-28] MEDS: Gabapentin 600 MG TABLET PO ×3 (08:41→22:27)
[2023-06-28] MEDS: Aspirin 81 MG TAB.CHEW PO (08:41)
[2023-06-28] MEDS: amLODIPine Besylate 5 MG TABLET PO (08:42)
[2023-06-28] MEDS: Latanoprost 0.005 % Ophth Sol 2.5 ML DROPS 1 DROP EYE-BOTH (08:42)
[2023-06-28] MEDS: Ferrous Sulfate 324 MG TABLET.DR PO (08:42)
[2023-06-28] MEDS: timoloL maleate 0.5 % Oph Sol 5 ML DRBTL 1 DROP EYE-BOTH ×2 (08:42→22:28)
[2023-06-28] MEDS: clonazePAM 1 MG TABLET PO (08:42)
[2023-06-28] MEDS: Brimonidine Tartrate 0.2% Oph 5 ML BOTTLE 1 DROP EYE-BOTH ×2 (08:43→22:27)
--- NOTE | 2023-06-28 13:03 | MHC.SPEECHCO ---
Pt cachetic, resting in his chair. On 6L NC. Unable to keep eyes open, skin cool and clammy. RN notified immediately. Not appropriate for PO at this time.
--- NOTE | 2023-06-28 13:12 | P.CDIM_ITS ---
PROVIDER RESPONSE TEXT: To clarify, the appropriate diagnosis supported by the clinical indicators: Cachexia QUERY TEXT: PHYSICIAN'S DOCUMENTATION REQUEST Date of Query: 06/26/2023 09:12 AM EDT Patient Name: Benjamin Fall Admit Date: 06/24/2023 Dear Yosi Aparicio, A review of the medical record indicates additional documentation may be needed. Please review below and update the documentation accordingly. Clinical Indicators: Height: ( ) 5'6 Weight: ( ) 54 kg BMI: ( ) 19.2 If possible, please provide an associated diagnosis related to the abnormal BMI, such as: Underweight Weight loss Cachexia Anorexia BMI is not significant Other (explain)Clinically unable to determine (explain)Thank you, Lori Allen RN Use of terms such as suspected, likely, concern for, or probable (associated with a specific diagnosi s that is being evaluated, monitored, or treated as if it exists) are acceptable and can be coded in the inpatient se tting, when documented at the time of discharge. Please use your independent medical judgment in providing your response. THIS QUERY IS PART OF THE PERMANENT MEDICAL RECORD
[2023-06-28] MEDS: Albumin Human 25 % 100 ML IV ×2 (14:12→19:51)
[2023-06-28] MEDS: Lactated Ringers 1,000 ML 150 ML IVCONT (14:12)
--- NOTE | 2023-06-28 15:03 | P.PNIM_ITS ---
Subjective Subjective Date of Service: 06/28/23 Interval History: Patient continues to be weak and easily fatigable. Rapid response called this morning for pressures in 80s. Review of Systems Admits chest pain Denies shortness of breath Denies nausea vomiting diarrhea Denies fever chills Physical Exam 2 Vital Signs: Vital Signs: Last Vital Signs Temp 98.3 F 06/28/23 11:02 Pulse 80 06/28/23 12:29 Resp 15 06/28/23 12:29 BP 91/62 06/28/23 12:29 Pulse Ox 96 06/28/23 12:29 O2 Del Method Nasal Cannula 06/28/23 12:29 O2 Flow Rate 3 06/28/23 12:29 Oxygen Flow Rate 3 06/28/23 12:29 BMI result Body Mass Index 19.2 Const: Other: Ill-appearing lying in bed Resp: Other: Clear to auscultation bilaterally no rales rhonchi or wheezes Cardio: Other: No S4; positive S1-S2; no S3 murmurs rubs gallops GI: Other: Soft nontender nondistended normoactive bowel sounds Extrem: Other: No edema bilateral Objective Data Active Medications Acetaminophen (Acetaminophen 325 Mg Tablet) 650 mg PO Q4H PRN PRN Reason: mild pain Last Admin: 06/28/23 08:40 Dose: 650 mg Documented By: JOSÉ MIGUEL Albuterol Sulfate (Albuterol Sulfate 90 Mcg 8 Gm Inhaler) 2 puff INHALE Q6H PRN PRN Reason: wheezing Albuterol/Ipratropium (Albuterol/Iprat 2.5/0.5mg 3 Ml Ampul.Neb) 3 ml INHALE Q4H PRN PRN Reason: Wheezing Last Admin: 06/28/23 01:42 Dose: 3 ml Documented By: DONNELL Amlodipine Besylate (Amlodipine Besylate 5 Mg Tablet) 5 mg PO DAILY [facility]; Protocol Last Admin: 06/28/23 08:42 Dose: 5 mg Documented By: JOSÉ MIGUEL Aspirin (Aspirin 81 Mg Tab.Chew) 81 mg PO DAILY [facility] Last Admin: 06/28/23 08:41 Dose: 81 mg Documented By: JOSÉ MIGUEL Atorvastatin Calcium (Atorvastatin Calcium 80 Mg Tablet) 80 mg PO BEDTIME [facility] Last Admin: 06/27/23 20:45 Dose: 80 mg Documented By: ELEAZAR Benzonatate (Benzonatate 100 Mg Capsule) 200 mg PO TID PRN PRN Reason: Cough Last Admin: 06/28/23 14:13 Dose: 200 mg Documented By: JOSÉ MIGUEL Bictegravir/Emtricitabine/Tenofovir (Bictegrav/Emtricit/Tenofov Ala Tablet) 1 tab PO DAILY [facility] Last Admin: 06/28/23 08:41 Dose: 1 tab Documented By: JOSÉ MIGUEL Brimonidine Tartrate (Brimonidine Tartrate 0.2% Oph 5 Ml Bottle) 1 drop EYE- BOTH BID [facility] Last Admin: 06/28/23 08:43 Dose: 1 drop Documented By: JOSÉ MIGUEL Calcium Carbonate (Calcium Carbonate 500 Mg Tablet) 500 mg PO BID [facility] Last Admin: 06/28/23 08:40 Dose: 500 mg Documented By: JOSÉ MIGUEL Clonazepam (Clonazepam 1 Mg Tablet) 1 mg PO DAILY [facility] Last Admin: 06/28/23 08:42 Dose: 1 mg Documented By: JOSÉ MIGUEL Ferrous Sulfate (Ferrous Sulfate 324 Mg Tablet.Dr) 324 mg PO DAILY [facility] Last Admin: 06/28/23 08:42 Dose: 324 mg Documented By: JOSÉ MIGUEL Fluticasone/Vilanterol (Fluticasone/Vilanterol 200/25 Blst.W.Dev) 1 puff INHALE RDAILY [facility] Last Admin: 06/28/23 08:10 Dose: 1 puff Documented By: MIRTHA Gabapentin (Gabapentin 600 Mg Tablet) 600 mg PO TID [facility] Last Admin: 06/28/23 14:13 Dose: 600 mg Documented By: JOSÉ MIGUEL Lactated Ringer's (Lr) 1,000 mls @ 150 mls/hr IVCONT .Q6H40M [facility] Last Admin: 06/28/23 14:12 Dose: 150 mls/hr Documented By: JOSÉ MIGUEL Albumin Human (Kedbumin 25 %) 100 mls @ 100 mls/hr IV Q6H [facility] Stop: 06/29/23 08:14 Last Admin: 06/28/23 14:12 Dose: 100 mls/hr Documented By: JOSÉ MIGUEL Latanoprost (Latanoprost 0.005 % Ophth Carol 2.5 Ml Drops) 1 drop EYE-BOTH DAILY [facility] Last Admin: 06/28/23 08:42 Dose: 1 drop Documented By: JOSÉ MIGUEL Mirtazapine (Mirtazapine 30 Mg Tablet) 60 mg PO BEDTIME [facility] Last Admin: 06/27/23 20:45 Dose: 60 mg Documented By: ELEAZAR Morphine Sulfate (Morphine Sulfate 2 Mg/Ml Cartridge) 2 mg IVPUSH Q2H PRN; Protocol PRN Reason: Pain, Severe (Pain Scale 7-10) Last Admin: 06/27/23 17:24 Dose: 2 mg Documented By: ELEAZAR Nitroglycerin (Nitroglycerin 0.4 Mg Tab.Subl) 0.4 mg SUBLINGUAL Q5MX3 PRN PRN Reason: Chest Pain Ondansetron HCl (Ondansetron Hcl 4 Mg/2 Ml Vial) 4 mg IVPUSH Q8H PRN PRN Reason: nausea and mvoting Risperidone (Risperidone 3 Mg Tablet) 3 mg PO BEDTIME [facility] Last Admin: 06/27/23 20:45 Dose: 3 mg Documented By: ELEAZAR Sodium Chloride (0.9 % Sodium Chloride Flush 3 Ml Syringe) 3 ml IVFLUSH QSHIFT [facility] Last Admin: 06/28/23 14:13 Dose: 3 ml Documented By: JOSÉ MIGUEL Timolol Maleate (Timolol Maleate 0.5 % Oph Carol 5 Ml Drbtl) 1 drop EYE-BOTH BID [facility] Last Admin: 06/28/23 08:42 Dose: 1 drop Documented By: JOSÉ MIGUEL Vitamin D (Cholecalciferol (Vitamin D3) 10 Mcg Tablet) 10 mcg PO BID [facility] Last Admin: 06/28/23 08:39 Dose: 10 mcg Documented By: JOSÉ MIGUEL Labs 06/28/23 06:46 06/26/23 06:49 Labs: Laboratory Results - last 24 hr 06/28/23 06:46 MCV 91.1 MCH 30.3 MCHC 33.3 RDW 16.1 H Plt Count 239 MPV 11.5 Immature Gran % (Auto) 0.4 Neut % (Auto) 86.7 H Lymph % (Auto) 5.0 L Duval % (Auto) 6.1 Eos % (Auto) 1.4 Baso % (Auto) 0.4 Lymph # (Auto) 0.5 L [place]val # (Auto) 0.6 Eos # (Auto) 0.1 Baso # (Auto) 0.0 Abs Immat Gran (auto) 0.04 H Absolute Neuts (auto) 8.0 Absolute Nucleated RBC 0.000 Nucleated RBC % (auto) 0.0 Assessment and Plan (1) Rhabdomyolysis: Status: Acute Plan 58yo M with HIV [viral load undetectable 06/02/23, CD4 377 11/29/22, mild persistent asthma, history HCV, and history empyema of the lung who presents with 3 days of severe substernal sharp chest pain radiating down the left arm. Not associated with dyspnea or diaphoresis and not clearly exertional. He was just here in the ED on 06/18/23 after falling in a grocery store after tripping. He apparently overdosed on heroin and got Narcan. He denies using heroin but endorses using cocaine. He has bruises and pain all over his body from the fall. No fever but he does endorse cough. In the ED, initial troponin was 100.5; repeat was 98.6. Notably troponin was undetectable at last visit 06/18/23. No ischemic EKG changes. He was given aspirin and started on heparin drip. 1.Relative hypotension -resuscitated with IV volume -will continue IV fluids -albumin x4 bottles 2. Rhabdomyolysis -CKs trending downward -Fluids as above 3.HTN -DC amlodipine given hypotensive episode -follow clinically 4.HIV - CD4 377 11/29/22, RNA undetectable 06/02/23; -continue Biktarvy 5. Precordial chest pain (resolved - IV heparin DC and after 48 hours -medical management; ASA/statin -echo noted; conservative therapies Will require ongoing hospitalization for IV fluids to treat hypotension Time Spent With Patient Time: Total time managing care of this patient today ____ minutes. Quality Stroke Does the patient have a stroke diagnosis?: No VTE Prior VTE?: No VTE Risk Level:: Medical - moderate - high VTE Device Contraindication: N/A - Device Ordered VTE Drug Contraindication: N/A - Med Ordered
--- NOTE | 2023-06-28 15:16 | MHC.CM.PN ---
Per MD rounds pt likely to dc tomorrow. PT rec STR. Patient prefers 1) [facility] or 2) any other facility in [place]. Unfortunately, no bed offers from any [place] facilities. Expanded search with patient permission and [facility] has offered a bed and is submitting for auth. Patient aware and agreeable to plan. CM will continue to follow.
[2023-06-28] MEDS: Atorvastatin Calcium 80 MG TABLET PO (22:27)
[2023-06-28] MEDS: risperiDONE 3 MG TABLET PO (22:27)
[2023-06-28] MEDS: Mirtazapine 30 MG TABLET 60 MG PO (22:27)
[2023-06-29] MEDS: Albumin Human 25 % 100 ML IV ×2 (00:14→09:05)
[2023-06-29] MEDS: Ketorolac Tromethamine 30 MG/ML VIAL IVPUSH (00:14)
[2023-06-29] MEDS: Lactated Ringers 1,000 ML 150 ML IVCONT ×3 (00:15→12:41)
[2023-06-29 04:00] VITALS: BP 125/67; PULSE 69; RESP 18; TEMP 36.6; O2SAT 90
[2023-06-29] MEDS: Albuterol/Iprat 2.5/0.5MG 3 ML AMPUL.NEB INHALE (07:54)
[2023-06-29] MEDS: Fluticasone/Vilanterol 200/25 BLST.W.DEV 1 PUFF INHALE (07:54)
[2023-06-29 07:56] VITALS: PULSE 77; RESP 20; O2SAT 91
[2023-06-29 08:00] VITALS: BP 156/92; PULSE 78; RESP 16; TEMP 36.4; O2SAT 90
[2023-06-29 09:05] LABS: Hematocrit 34.6 % (42.0-52.0); Hemoglobin 11.3 g/dl (14.0-18.0); Mean Corpuscular HGB Conc 32.7 g/dl (31.0-36.0); Mean Corpuscular Hemoglobin 29.9 pg (27.0-33.0); Mean Corpuscular Volume 91.5 fL (80.0-98.0); Mean Platelet Volume 11.9 fL (9.4-12.4); Platelet Count 185 X10*3/uL (160-400); Red Blood Count 3.78 X10*6/uL (4.60-5.80); Red Cell Distribution Width 16.2 % (11.0-16.0); White Blood Count 4.5 X10*3/uL (4.8-10.8)
[2023-06-29] MEDS: Cholecalciferol (Vitamin D3) 10 MCG TABLET PO (09:05)
[2023-06-29] MEDS: Ferrous Sulfate 324 MG TABLET.DR PO (09:05)
[2023-06-29] MEDS: 0.9 % Sodium Chloride Flush 3 ML SYRINGE IVFLUSH ×2 (09:05→17:16)
[2023-06-29] MEDS: Acetaminophen 325 MG TABLET 650 MG PO (09:05)
[2023-06-29] MEDS: Aspirin 81 MG TAB.CHEW PO (09:05)
[2023-06-29] MEDS: Gabapentin 600 MG TABLET PO ×2 (09:06→15:08)
[2023-06-29] MEDS: clonazePAM 1 MG TABLET PO (09:06)
[2023-06-29] MEDS: Bictegrav/Emtricit/Tenofov Ala TABLET 1 TAB PO (09:06)
[2023-06-29 09:10] VITALS: BP 156/92; PULSE 78; O2SAT 90
[2023-06-29] MEDS: Latanoprost 0.005 % Ophth Sol 2.5 ML DROPS 1 DROP EYE-BOTH (10:15)
[2023-06-29] MEDS: timoloL maleate 0.5 % Oph Sol 5 ML DRBTL 1 DROP EYE-BOTH (10:15)
[2023-06-29] MEDS: Brimonidine Tartrate 0.2% Oph 5 ML BOTTLE 1 DROP EYE-BOTH (10:15)
[2023-06-29 11:55] VITALS: BP 122/72; PULSE 66; RESP 16; TEMP 36.2; O2SAT 92
--- NOTE | 2023-06-29 12:04 | MHC.SL.SWA ---
Speech Pathologist Impression: Risk of aspiration, oropharyngeal dysphagia Risk of Aspiration Due to: Weak Cough Dysphasia Diet Status: No changes at this time Liquid Consistency and Strategies for Safe Swallow: Liquid Intake Recommendation: Thin Liquid Intake Strategies: Small Sips Solid Food Consistency: Dietary Recommendations: Pureed (NDD1) Additional Modifications to Solid Foods: Ensure oral care between meals Oral Medication Intake: Crushed with Puree Please contact the pharmacy regarding appropriate crushable or liquid drug formulations that are available whenever modified delivery is recommended. Compensatory Strategies and Precautions to be Taken for Safe Swallow: Sitting Upright (90 deg) Double Swallow Small Bites and Sips Alternate Liquids/Solids Rate of Ingestion Change Oral Check Avoid Specific Foods Supervision While Eating and Drinking for Safe Swallow: Total Supervision (1:1) Foods to Avoid: Avoid difficult to chew solids. Swallowing Recommended Treatments: Compens. Strategy Educat. Recommendation for Speech: Inpatient Speech Therapy Channel Director Clinican/Clinical Fellow: Yes: Dahiana Lang Supervisory Statement: I have reviewed and agree with the student/clinical fellow's documentation: Yes Speech Language Pathologist: Laura Hill M.A., CCC-[employer]IC [employer]
--- NOTE | 2023-06-29 14:26 | P.PNIM_ITS ---
Subjective Subjective Date of Service: 06/29/23 Interval History: More alert and interactive today after fluids. Completed course of albumin Review of Systems Admits chest pain Denies shortness of breath Denies nausea vomiting diarrhea Denies fever chills Physical Exam 2 Vital Signs: Vital Signs: Last Vital Signs Temp 97.2 F 06/29/23 11:55 Pulse 66 06/29/23 11:55 Resp 16 06/29/23 11:55 BP 122/72 06/29/23 11:55 Pulse Ox 92 06/29/23 11:55 O2 Del Method Nasal Cannula 06/29/23 11:55 O2 Flow Rate 3 06/29/23 11:55 Oxygen Flow Rate 3 06/28/23 12:29 BMI result Body Mass Index 19.2 Const: Other: Ill-appearing lying in bed Resp: Other: Clear to auscultation bilaterally no rales rhonchi or wheezes Cardio: Other: No S4; positive S1-S2; no S3 murmurs rubs gallops GI: Other: Soft nontender nondistended normoactive bowel sounds Extrem: Other: No edema bilateral Objective Data Active Medications Acetaminophen (Acetaminophen 325 Mg Tablet) 650 mg PO Q4H PRN PRN Reason: mild pain Last Admin: 06/29/23 09:05 Dose: 650 mg Documented By: SHEREEN Albuterol Sulfate (Albuterol Sulfate 90 Mcg 8 Gm Inhaler) 2 puff INHALE Q6H PRN PRN Reason: wheezing Albuterol/Ipratropium (Albuterol/Iprat 2.5/0.5mg 3 Ml Ampul.Neb) 3 ml INHALE Q4H PRN PRN Reason: Wheezing Last Admin: 06/29/23 07:54 Dose: 3 ml Documented By: MIRTHA Aspirin (Aspirin 81 Mg Tab.Chew) 81 mg PO DAILY REPLACED BY [facility] Last Admin: 06/29/23 09:05 Dose: 81 mg Documented By: SHEREEN Atorvastatin Calcium (Atorvastatin Calcium 80 Mg Tablet) 80 mg PO BEDTIME REPLACED BY [facility] Last Admin: 06/28/23 22:27 Dose: 80 mg Documented By: ZORA Benzonatate (Benzonatate 100 Mg Capsule) 200 mg PO TID PRN PRN Reason: Cough Last Admin: 06/28/23 14:13 Dose: 200 mg Documented By: JOSÉ MIGUEL Bictegravir/Emtricitabine/Tenofovir (Bictegrav/Emtricit/Tenofov Ala Tablet) 1 tab PO DAILY [facility] Last Admin: 06/29/23 09:06 Dose: 1 tab Documented By: SHEREEN Brimonidine Tartrate (Brimonidine Tartrate 0.2% Oph 5 Ml Bottle) 1 drop EYE- BOTH BID REPLACED BY [facility] Last Admin: 06/29/23 10:15 Dose: 1 drop Documented By: SHEREEN Calcium Carbonate (Calcium Carbonate 500 Mg Tablet) 500 mg PO BID REPLACED BY [facility] Last Admin: 06/29/23 09:05 Dose: 500 mg Documented By: SHEREEN Clonazepam (Clonazepam 1 Mg Tablet) 1 mg PO DAILY [facility]PL[facility] Last Admin: 06/29/23 09:06 Dose: 1 mg Documented By: SHEREEN Ferrous Sulfate (Ferrous Sulfate 324 Mg Tablet.Dr) 324 mg PO DAILY [facility] Last Admin: 06/29/23 09:05 Dose: 324 mg Documented By: SHEREEN Fluticasone/Vilanterol (Fluticasone/Vilanterol 200/25 Blst.W.Dev) 1 puff INHALE RDAILY [facility]PL[facility]ED [facility] Last Admin: 06/29/23 07:54 Dose: 1 puff Documented By: MIRTHA Gabapentin (Gabapentin 600 Mg Tablet) 600 mg PO TID REPLACED BY [facility] Last Admin: 06/29/23 09:06 Dose: 600 mg Documented By: SHEREEN Lactated Ringer's (Lr) 1,000 mls @ 150 mls/hr IVCONT .Q6H40M REPLACED BY [facility] Last Admin: 06/29/23 12:41 Dose: 150 mls/hr Documented By: SHEREEN Latanoprost (Latanoprost 0.005 % Ophth Carol 2.5 Ml Drops) 1 drop EYE-BOTH DAILY REPLACED BY [facility] Last Admin: 06/29/23 10:15 Dose: 1 drop Documented By: SHEREEN Mirtazapine (Mirtazapine 30 Mg Tablet) 60 mg PO BEDTIME REPLACED BY [facility] Last Admin: 06/28/23 22:27 Dose: 60 mg Documented By: ZORA Morphine Sulfate (Morphine Sulfate 2 Mg/Ml Cartridge) 2 mg IVPUSH Q2H PRN; Protocol PRN Reason: Pain, Severe (Pain Scale 7-10) Last Admin: 06/27/23 17:24 Dose: 2 mg Documented By: ELEAZAR Nitroglycerin (Nitroglycerin 0.4 Mg Tab.Subl) 0.4 mg SUBLINGUAL Q5MX3 PRN PRN Reason: Chest Pain Ondansetron HCl (Ondansetron Hcl 4 Mg/2 Ml Vial) 4 mg IVPUSH Q8H PRN PRN Reason: nausea and mvoting Risperidone (Risperidone 3 Mg Tablet) 3 mg PO BEDTIME REPLACED BY [facility] Last Admin: 06/28/23 22:27 Dose: 3 mg Documented By: ZORA Sodium Chloride (0.9 % Sodium Chloride Flush 3 Ml Syringe) 3 ml IVFLUSH QSHIFT REPLACED BY [facility] Last Admin: 06/29/23 09:05 Dose: 3 ml Documented By: SHEREEN Timolol Maleate (Timolol Maleate 0.5 % Oph Carol 5 Ml Drbtl) 1 drop EYE-BOTH BID REPLACED BY [facility] Last Admin: 06/29/23 10:15 Dose: 1 drop Documented By: SHEREEN Vitamin D (Cholecalciferol (Vitamin D3) 10 Mcg Tablet) 10 mcg PO BID REPLACED BY [facility] Last Admin: 06/29/23 09:05 Dose: 10 mcg Documented By: SHEREEN Labs 06/29/23 08:23 06/26/23 06:49 Labs: Laboratory Results - last 24 hr 06/29/23 08:23 MCV 91.5 MCH 29.9 MCHC 32.7 RDW 16.2 H Plt Count 185 MPV 11.9 Absolute Nucleated RBC 0.000 Nucleated RBC % (auto) 0.0 Assessment and Plan (1) Rhabdomyolysis: Status: Acute (2) HIV (human immunodeficiency virus infection): Status: Acute Plan 58yo M with HIV [viral load undetectable 06/02/23, CD4 377 11/29/22, mild persistent asthma, history HCV, and history empyema of the lung who presents with 3 days of severe substernal sharp chest pain radiating down the left arm. Not associated with dyspnea or diaphoresis and not clearly exertional. He was just here in the ED on 06/18/23 after falling in a grocery store after tripping. He apparently overdosed on heroin and got Narcan. He denies using heroin but endorses using cocaine. He has bruises and pain all over his body from the fall. No fever but he does endorse cough. In the ED, initial troponin was 100.5; repeat was 98.6. Notably troponin was undetectable at last visit 06/18/23. No ischemic EKG changes. He was given aspirin and started on heparin drip. 1.Relative hypotension... Resolved -resuscitated with IV volume -will continue IV fluids -albumin x4 bottles 2. Rhabdomyolysis -CKs trending downward -follow clinically -Fluids as above 3.HTN -DC amlodipine given hypotensive episode -follow clinically 4.HIV - CD4 377 11/29/22, RNA undetectable 06/02/23; -continue Biktarvy 5. Precordial chest pain (resolved) - IV heparin DC and after 48 hours -medical management; ASA/statin -echo noted; conservative therapies Will require ongoing hospitalization for IV fluids to treat hypotension Time Spent With Patient Time: Total time managing care of this patient today ____ minutes. Quality Stroke Does the patient have a stroke diagnosis?: No VTE Prior VTE?: No VTE Risk Level:: Medical - moderate - high VTE Device Contraindication: N/A - Device Ordered VTE Drug Contraindication: N/A - Med Ordered
--- NOTE | 2023-06-29 15:11 | P.DS_ITS ---
DS: Providers Provider Date of Service: 06/29/23 Date of admission: 06/24/23 16:31 Date of discharge: 06/29/23 Primary care physician: Terese Keenan MD Consults: 06/24/23 16:21 Consult to Cardiology Routine Consulting Provider: [facility] Cardiovascular Services Reason for consultation: chest pain cocaine 06/24/23 16:32 Addiction Medicine Routine Consulting Provider: Addiction Covering Reason for consultation: cocaine avbuse 06/29/23 11:48 Consult to Case Management Stat Comment: DS: Diagnosis Discharge Diagnosis (1) Rhabdomyolysis: Status: Acute (2) HIV (human immunodeficiency virus infection): Status: Acute DS: Summary Hospital Course Hospital Course: 58yo M with HIV [viral load undetectable 06/02/23, CD4 377 11/29/22, mild persistent asthma, history HCV, and history empyema of the lung who presents with 3 days of severe substernal sharp chest pain radiating down the left arm. Not associated with dyspnea or diaphoresis and not clearly exertional. He was just here in the ED on 06/18/23 after falling in a grocery store after tripping. He apparently overdosed on heroin and got Narcan. He denies using heroin but endorses using cocaine. He has bruises and pain all over his body from the fall. No fever but he does endorse cough. In the ED, initial troponin was 100.5; repeat was 98.6. Notably troponin was undetectable at last visit 06/18/23. No ischemic EKG changes. He was given aspirin and started on heparin drip. CPK greater than 3000 on admission Hospital Course Admitted to telemetry where he receive 48 hours of IV heparin. Seen in consultation by Cardiology who felt that this was not a non ST-elevation PR that this was rather a troponin leak due to stress. 2D echo done demonstrated LVEF of 40-45%. Over the course of the hospitalization CPK trended downward. Did have an episode of hypotension secondary to poor p.o. intake. Given boluses of lactated Ringer's along with 4 bottles of albumin with excellent response. At this point time his been seen by Physical therapy who recommend short-term rehab. He is medically acceptable for same. His stable likely be less than 30 days Time Spent with Patient Time attestation: Total time managing care of this patient today ____ minutes. Discharge coordination time: Greater than 30 minutes Quality: Safe Use of Opioids Does Pt have an Active Cancer Diagnosis on the Problem List?: No Quality: Stroke Does the patient have a stroke diagnosis?: No Physical Exam Vital Signs: Vital Signs: Last Vital Signs Temp 97.2 F 06/29/23 11:55 Pulse 66 06/29/23 11:55 Resp 16 06/29/23 11:55 BP 122/72 06/29/23 11:55 Pulse Ox 92 06/29/23 11:55 O2 Del Method Nasal Cannula 06/29/23 11:55 O2 Flow Rate 3 06/29/23 11:55 Oxygen Flow Rate 3 06/28/23 12:29 BMI result Body Mass Index 19.2 Const: Other: Ill-appearing lying in bed Resp: Other: Clear to auscultation bilaterally no rales rhonchi or wheezes Cardio: Other: No S4; positive S1-S2; no S3 murmurs rubs gallops GI: Other: Soft nontender nondistended normoactive bowel sounds Extrem: Other: No edema bilateral DS: Data Data Completed and Pending Completed studies during hospitalization [Text1]: Procedures Drainage of Left Lung with Drainage Device, Open Approach (12/30/22) Insertion of Endotracheal Airway into Trachea, Via Natural or Artificial Opening (12/30/22) Insertion of Infusion Device into Superior Vena Cava, Percutaneous Approach (12/30/22) Introduction of Vasopressor into Central Vein, Percutaneous Approach (12/30/22) Release Left Lung, Open Approach (12/30/22) Reposition Left Tibia with Internal Fixation Device, Open Approach (02/12/22) Respiratory Ventilation, 24-96 Consecutive Hours (12/30/22) Ultrasonography of Superior Vena Cava, Guidance (12/30/22) Labs on day of discharge: Laboratory Results - last 24 hr 06/29/23 08:23 WBC 4.5 L RBC 3.78 L Hgb 11.3 L Hct 34.6 L MCV 91.5 MCH 29.9 MCHC 32.7 RDW 16.2 H Plt Count 185 MPV 11.9 Absolute Nucleated RBC 0.000 Nucleated RBC % (auto) 0.0 Discharge Plan Discharge Anticipated Discharge Date/Time: 06/29/23 15:06 Patient Disposition: Xfer Inpatient Rehab Fac Discharge Diagnosis: Rhabdomyolysis Referrals: Terese Rivera MD [Primary Care Provider] - Discharge Medications: Continued latanoprost 0.005 % drops 1 drp ophthalmic (eye) DAILY gabapentin 600 mg tablet 600 mg PO TID clonazepam 1 mg tablet 1 mg PO DAILY amlodipine 5 mg tablet 5 mg PO DAILY tramadol 50 mg tablet 50 mg PO DAILY PRN (Reason: Pain) mirtazapine 30 mg tablet 60 mg PO BEDTIME Biktarvy 50-200-25 mg tablet 1 tab PO DAILY albuterol sulfate 90 mcg/actuation HFA aerosol inhaler 2 puff inhalation Q6H PRN (Reason: wheezing) ferrous gluconate 324 mg (38 mg iron) tablet 324 mg PO QAM Rx Instructions: PATIENT STOP TAKING BECAUSE CONSTIPATION . HE IS AWARE HE SHOULD BE TAKING MED . calcium carbonate-vitamin D3 [Calcium 600 + D(3)] 600 mg-10 mcg (400 unit) Tablet 1 tab PO BID fluticasone propion-salmeterol [Advair HFA] 230-21 mcg/actuation HFA aerosol inhaler 2 puff inhalation BID risperidone 3 mg tablet 3 mg PO BEDTIME brimonidine-timolol 0.2-0.5 % drops 1 drp ophthalmic (eye) BID Discharge Orders: Discharge Order (Routine); Ordered 06/29/23 Ordered By: Yosi Aparicio Diet: NDD1;thin liquids Activity on Discharge: As tolerated Stand Alone Forms: Patient Portal Discharge page Care Plan Goals: Continue meds as ordered Health Concerns: Further plans as per receiving facility Plan of Treatment: As above Assessment: See discharge summary Patient Instructions: Noncardiac Chest Pain (ED)
--- NOTE | 2023-06-29 15:15 | MHC.CM.PN ---
EMR reviewed, per MD rounds pt medically cleared for DC. DP: STR at [facility], who has obtained auth. BLS transport booked for 9pm (earliest available). Pt, , RN and facility aware.
[2023-06-29 15:37] VITALS: BP 142/88; PULSE 68; RESP 16; TEMP 36.8; O2SAT 92
--- NOTE | 2023-06-29 18:35 | PC.NURSE ---
pt discharged to [facility] via ambulance. pt is well apearing and assisted walking from room to stretcher. pt is in no distress. report to ems for transport. several attempts to call [facility] unable to get through.
--- NOTE | 2023-07-09 13:17 | PC.NURSE ---
in correction to missed scanned administered medication; on 06/29/2023 at 0910 pt was administered 2 mg of morphine ivp.
== END 2023-06-29 18:50 | DRG 558 ==
LOC: HO.ED 16:04 → HO.EDOVER 16:35 → HO.IMC 06-25 16:16
PROVIDERS: Admitting Provider Family Medicine; Emergency Provider Emergency Medicine; PCP Student in an Organized Health Care Education/Training Program; Visit Provider Hospitalist
DX: M62.82 Rhabdomyolysis (principal); R64 Cachexia; Z68.1 Body mass index [BMI] 19.9 or less, adult; I10 Essential (primary) hypertension; R79.89 Other specified abnormal findings of blood chemistry; F39 Unspecified mood [affective] disorder; Z86.19 Personal history of other infectious and parasitic diseases; F14.10 Cocaine abuse, uncomplicated; R07.2 Precordial pain; Z21 Asymptomatic human immunodeficiency virus [HIV] infection status; J45.30 Mild persistent asthma, uncomplicated; I95.9 Hypotension, unspecified; Z20.822 Contact with and (suspected) exposure to COVID-19; Z79.899 Other long term (current) drug therapy
CPT/HCPCS: 0241U; 36415; 71045; 80048; 80053; 80076; 80307; 81003; 82550; 83690; 84484; 85025; 85027; 85610; 85730; 86140; 92526; 92610; 93005; 93306; 94640; 97162; 97530; 99285; J1643; J1885; J2270; P9047; Q9957

== ENCOUNTER 2023-06-24 16:31 | Outpatient (BNV) | payer OTHER, SELFPAY | END 2023-06-25 07:00 | PROVIDERS: Admitting Provider Family Medicine; Emergency Provider Emergency Medicine; PCP Student in an Organized Health Care Education/Training Program; Visit Provider Internal Medicine | DX: R07.2 Precordial pain (principal) | CPT/HCPCS: 93306 ==

== ENCOUNTER → 2023-06-24 16:31 | Outpatient (BNV) | payer OTHER, SELFPAY | PROVIDERS: Admitting Provider Family Medicine; Emergency Provider Emergency Medicine; PCP Student in an Organized Health Care Education/Training Program; Visit Provider Internal Medicine | DX: R07.2 Precordial pain (principal); T79.6XXA Traumatic ischemia of muscle, initial encounter; R79.89 Other specified abnormal findings of blood chemistry | CPT/HCPCS: 99222; 99233 ==

== ENCOUNTER → 2023-06-24 16:31 | Outpatient (BNV) | payer OTHER, SELFPAY | PROVIDERS: Admitting Provider Family Medicine; Emergency Provider Emergency Medicine; PCP Student in an Organized Health Care Education/Training Program; Visit Provider Nurse Practitioner Psychiatric/Mental Health | DX: T40.2X1A Poisoning by other opioids, accidental (unintentional), initial encounter (principal) | CPT/HCPCS: 99231 ==

== ENCOUNTER → 2023-06-24 16:31 | Outpatient (BNV) | payer OTHER, SELFPAY | PROVIDERS: Admitting Provider Family Medicine; Emergency Provider Emergency Medicine; PCP Student in an Organized Health Care Education/Training Program; Visit Provider Family Medicine | DX: T79.6XXA Traumatic ischemia of muscle, initial encounter (principal); B20 Human immunodeficiency virus [HIV] disease | CPT/HCPCS: 99223; 99233; 99239 ==

== ENCOUNTER 2023-07-15 08:36 | Inpatient (IN) | payer OTHER, SELFPAY ==
--- NOTE | ~2023-07-15 | XR_ITS ---
EXAMINATION: CHEST 2 VIEWS CLINICAL INFORMATION: chest pain, cough. COMPARISON: 06/28/2023. TECHNIQUE: AP frontal and lateral views of the chest obtained FINDINGS: The lungs are well expanded. Chronic appearing reticular markings are seen but no superimposed focal infiltrate, effusion, edema, or pneumothorax. Cardiac and mediastinal silhouettes are within normal limits for size with surgical clips again seen in the left hilar region. No acute bony abnormality seen XR/XR chest 2V IMPRESSION: Chronic appearing changes similar to the prior study without acute superimposed process.
--- NOTE | ~2023-07-15 | CT_ITS ---
EXAMINATION: CT CHEST WITH CONTRAST CLINICAL INFORMATION: Cough. Shortness of breath and chest pain. COMPARISON: Previous chest x-ray from earlier the same day and chest CTA February 2023 TECHNIQUE: Multidetector volumetric CT imaging of the chest was obtained after the administration of 65 mL of Omnipaque 350 intravenous contrast without immediate adverse reactions. Axial MIP volume rendering provided. Sagittal and coronal reformatted images were obtained. This CT examination was performed using dose optimization techniques as appropriate, variously including the following: *Automated exposure control *Adjustment of mA and/or kV according to patient size (this includes techniques or standardized protocols for targeted exams where dose is matched to indication/reason for exam; i.e. extremities or head) *Use of iterative reconstruction technique DLP: 212 mGy-cm FINDINGS: LUNGS: Evaluation of the lungs is somewhat limited due to artifact from respiratory motion. There is interval improvement in the bronchial wall thickening, increased peribronchial attenuation and peribronchial nodular opacities right upper lobe, bilateral lower lobe and inferior segment of the lingula February 2023 exam. No new nodule or evidence of pneumonia is. MEDIASTINUM: The mediastinum is normal. PLEURA: There is no pleural effusion. No pleural mass or thickening. AXILLA: No lymphadenopathy. UPPER ABDOMEN: Small left renal stones. OSSEOUS STRUCTURES: New in the interval or recent left anterior second and third costochondral rib fractures. Previously identified recent or healing healing left posterior medial 6 and 9 rib fractures not well visualized. Postsurgical changes and fracture of the left posterior seventh rib. Old left healed posterior lateral seventh and eighth rib fractures. Multiple stable mid thoracic vertebral body compression fractures. CT/CT chest w IV con IMPRESSION: Improved airways disease/bronchopneumonia from 02/12/2023 exam. No new infiltrate seen. Multiple left-sided rib fractures of varying ages and postsurgical change as described. New or recent left anterior third and fourth rib fractures. Fleischner guidelines were followed.
--- NOTE | 2023-07-15 08:41 | ED_ITS ---
HPI - General Adult General Chief complaint: General Medical Stated complaint: WEAK/CANT SWALLOW/EAT PER EMS Time Seen by Provider: 07/15/23 08:41 Source: patient and EMS Mode of arrival: EMS Limitations: language barrier ( Greenlandic-speaking manager medical affairs utilized) History of Present Illness HPI narrative: patient is a 58-year-old male who presents emergency department via EMS for evaluation of left lateral chest pain x 2 days, constant Worse with cough and movement, left lateral rib pain after a fall 1 week ago, minimally productive cough but feels as though he cannot clear the mucus, difficulty swallowing described as a globus sensation when eating solid foods, pointing below suprasternal notch and that has been ongoing for the past month intermittently, at times self resolves and passes, other time resolves with vomiting, he is able to tolerate liquids without difficulty, generalized weakness. denies known fever, shaking chills, baseline nausea, abdominal pain, numbness or tingling of extremities. Denies drug or alcohol usage. Related Data Home Medications Medication Instructions Recorded Confirmed amlodipine 5 mg tablet 5 mg PO DAILY 12/30/22 06/24/23 bictegravir 50 mg-emtricitabine 1 tab PO DAILY 12/30/22 06/24/23 200 mg-tenofovir alafenam 25 mg tablet (Biktarvy) clonazepam 1 mg tablet 1 mg PO DAILY 12/30/22 06/24/23 gabapentin 600 mg tablet 600 mg PO TID 12/30/22 06/24/23 latanoprost 0.005 % eye drops 1 drp ophthalmic (eye) DAILY 12/30/22 06/24/23 mirtazapine 30 mg tablet 60 mg PO BEDTIME 12/30/22 06/24/23 tramadol 50 mg tablet 50 mg PO DAILY PRN Pain 12/30/22 06/24/23 albuterol sulfate 90 mcg/actuation 2 puff inhalation Q6H PRN wheezing 02/12/23 06/24/23 aerosol inhaler ferrous gluconate 324 mg (38 mg 324 mg PO QAM 02/12/23 06/24/23 iron) tablet brimonidine 0.2 %-timolol 0.5 % 1 drp ophthalmic (eye) BID 06/01/23 06/24/23 eye drops fluticasone propionate 230 2 puff inhalation BID 06/01/23 06/24/23 mcg-salmeterol 21 mcg/actuation HFA inhaler (Advair HFA) risperidone 3 mg tablet 3 mg PO BEDTIME 06/01/23 06/24/23 calcium carbonate 600 mg-vitamin 1 tab PO BID 06/24/23 06/24/23 D3 10 mcg (400 unit) tablet (Calcium 600 + D(3)) clotrimazole 10 mg klaudia 10 mg PO 5XD 07/15/23 diphenhydramine HCl 25 mg tablet 50 mg PO BEDTIME 07/15/23 (Banophen) guaifenesin 100 mg/5 mL oral 200 mg PO TID PRN Cough 07/15/23 liquid (Chest Congestion Relief) Allergies Allergy/AdvReac Type Severity Reaction Status Date / Time Seasonal Allergies Allergy Intermediate Eye Verified 07/15/23 09:10 Drainage codeine Allergy Mild Rash Verified 07/15/23 09:10 [From Tylenol-Codeine #3] levofloxacin [From Levaquin] Allergy Mild Rash Verified 07/15/23 09:10 metoclopramide [From Reglan] Allergy Mild Rash Verified 07/15/23 09:10 acetaminophen Allergy Unknown Unknown Verified 07/15/23 09:10 [Tylenol-Codeine #3] Penicillins [PENICILLINS] Allergy Unknown Rash Verified 07/15/23 09:10 tramadol [From Ultram] AdvReac Mild Nausea and Verified 07/15/23 09:10 Vomiting ibuprofen [From Motrin] AdvReac Unknown Reflux Verified 07/15/23 09:10 Review of Systems 2 Review of Systems: Yes all other systems are reviewed and are negative PMFSH Past Medical History Source: old records reviewed Medical History History of empyema of pleura (01/05/23) Hypertension Closed fracture of leg Hepatitis C Kidney stones Pleuritic chest pain Pneumonia Substance abuse Hemorrhoids Depression HIV (human immunodeficiency virus infection) Asthma Surgical History H/O hemorrhoidectomy Social History Social History Household Members: None Housing: Apartment Do you presently have visiting nurse or other home services: Yes Alcohol intake: current Alcohol intake frequency: does not drink Patient Tobacco Use Status: Never used Tobacco Second Hand Smoke Exposure: No Use of substances other than those prescribed or required for medical reasons: No Substance Use Type: Crack/Cocaine Advance Directives: Yes Advance Directives on File: Yes Advance Directives Date on File: 04/25/21 service: No Current occupational status: disabled Physical Exam ED Vital Signs: Vital Signs - 24 hr 07/15/23 08:46 07/15/23 10:59 07/15/23 11:57 Temperature 97.7 F Pulse Rate 96 78 71 Respiratory Rate 17 18 20 Blood Pressure 117/82 127/84 144/81 H Pulse Oximetry 98 98 99 Oxygen Delivery Method Room Air Room Air Room Air BMI result Body Mass Index 18.7 Appearance: Alert.?Oriented to person, place and time. No acute distress.?Normal affect. Eyes: Pupils equal, round and reactive to light.? ENT: Pharynx normal.?? Dry mucous membranes. No trismus. No drooling. Neck: Normal inspection.? Neck supple.?? F ROM. No adenopathy. Thyroid normal. No neck mass noted. CVS: Heart sounds normal. Normal heart rate and rhythm.? Pulses normal.?? Respiratory: No respiratory distress.? Lung sounds With rhonchi in the left upper lobe, diminished on the right. Chest Wall tenderness left lateral. No accessory muscle usage. Increased pain with inspiration. Abdomen: Soft With diffuse tenderness upon palpation. No rigidity. No guarding. No distention. Normoactive bowel sounds. Skin: Skin warm and dry.? Normal skin color.? ?? Extremities: No lower extremity edema.? No calf ttp? Neuro: Moves all extremities spontaneously. Sensation intact bilaterally. CN II- XII intact. No focal neuro deficits. Ambulates with normal steady gait. Course Reevaluation(s) Reevaluation #1: received call from lab regarding critical lactic acid of 3.1; At this time no evidence of infection afebrile, no additional signs of organ damage, I suspect type B lactic acidosis secondary to HIV and anti-retroviral usage CBC indicating leukopenia 3.3 and a normocytic anemia. No electrolyte abnormality. High sensitive troponin nondetectable, EKG revealing normal sinus rhythm without acute ischemic abnormalities. Chest x-ray without evidence of acute cardiopulmonary process. Time: 10:51 Reevaluation #2: Chest CT does not reveal any new infiltrates, variable aging left-sided rib fractures, with new recent left anterior 3rd and 4th rib fracture, likely sequela from recent fall, incentive spirometer ordered, correlates with tenderness upon chest wall palpation, no evidence of mass as cause for trouble swallowing, and again is tolerating liquids, with out complication. Urinalysis is without evidence of infection. lactic acid with improvement to 1.3 after receiving 1 L IV fluid. Will refer PT for PT/CM due to weakness, does not feel strong enough to return home, and will obtain speech & swallow eval. Time: 12:14 Medications Administered Discontinued Medications Generic Name Dose Route Start Last Admin Trade Name Freq PRN Reason Stop Dose Admin Ceftriaxone Sodium 1 gm/ 50 mls @ 100 mls/hr 07/15/23 09:01 07/15/23 10:46 Sodium Chloride IV 07/15/23 09:30 Infused ONCE ONE Infusion Sodium Chloride 1,000 mls @ 999 mls/hr 07/15/23 11:00 07/15/23 11:56 Ns IV 07/15/23 12:00 Infused .Q1H1M MICHAEL Infusion Iohexol 65 ml 07/15/23 11:13 07/15/23 11:14 Iohexol 350 Mg/Ml 100 Ml Infus..Btl IV 07/15/23 11:14 65 ml ONCE ONE Administration Procedures EJ/Peripheral Line Arm L: Time Out Performed: Yes Skin Cleansed in Sterile Fashion: Yes Size (gauge): 18 IV Secured and Dressing Applied: Yes Patient Tolerated Procedure: well Additional Comments: US guided Medical Decision Making Medical Decision Making MDM Narrative: patient is a 58-year-old male with past medical history of HIV on HAART regimen, asthma, atypical pneumonia, lung abscess, hep C, empyema long presenting to the emergency department with multiple complaints including left anterior chest pain, left lateral rib pain, minimally productive cough but feels as though he cannot clear the mucus, difficulty swallowing. No drooling, managing secretions, able to drink water without difficulty no obvious neck masses. No chest wall tenderness, rhonchi to the left upper lobe otherwise doing throughout. Diffuse mild tenderness upon palpation of the abdomen, no rigidity, no guarding. patient with recent admission to the hospital 06/24/2023- 06/29/2023, precordial chest pain cardiology evaluation initially on heparin infusion discontinued after 48 hours, thought less likely to be secondary to ACS, cocaine usage may have attributed to symptoms, Advised empiric CAD treatment of aspirin and high-dose statins. Will obtain CBC to evaluate for leukocytosis/ anemia, CMP and lipase to evaluate for abnormal electrolytes /abnormal renal function/ abnormal hepatic/biliary function, EKG and troponin to evaluate for ischemia/ACS, CXR, and Urinalysis. reported difficulty swallowing, concern for possible pneumonia, will cover with ceftriaxone, pending CXR, with evidence of will add additional coverage with metronidazole for aspiration concerns. Differential Diagnosis Differential Diagnoses: The differential diagnosis associated with the presentation includes ( ACS, costochondritis, pneumonia, aspiration,) Admission/Observation Consideration of admission/observation: Escalation of care including admission/observation considered ( considered admission for chest pain, see course narrative for further detail) Lab Data MDM Lab Attestation statement: I reviewed the patient's lab results. ( See course narrative for further detail) 07/15/23 10:26 07/15/23 09:51 Labs: Lab Results 07/15/23 07/15/23 07/15/23 Range/Units 09:43 09:51 09:52 WBC (4.8-10.8) X10*3/uL RBC (4.60-5.80) X10*6/uL Hgb (14.0-18.0) g/dl Hct (42.0-52.0) % MCV (80.0-98.0) fL MCH (27.0-33.0) pg MCHC (31.0-36.0) g/dl RDW (11.0-16.0) % Plt Count (160-400) X10*3/uL MPV (9.4-12.4) fL Immature Gran % (Auto) (0.0-0.4) % Neut % (Auto) (45-73) % Lymph % (Auto) (20-40) % Graham % (Auto) (2-11) % Eos % (Auto) (0-4) % Baso % (Auto) (0-2) % Lymph # (Auto) (1.2-4.9) X10*3/uL Graham # (Auto) (0.1-1.2) X10*3/uL Eos # (Auto) (0.0-0.4) X10*3/uL Baso # (Auto) (0.0-0.2) X10*3/uL Abs Immat Gran (auto) (0.00-0.03) X10*3/uL Absolute Neuts (auto) (2.0-8.3) x10*3/uL Absolute Nucleated RBC (0.0-0.012) X10*3/uL Nucleated RBC % (auto) (0.0-0.2) /100WBC Sodium 141 (135-145) mmol/L Potassium 4.1 (3.3-5.1) mmol/L Chloride 107 (96-108) mmol/L Carbon Dioxide 25 (22-29) mmol/L Anion Gap 13 (12-20) BUN 11 (9-16) mg/dL Creatinine 0.95 (0.5-1.4) mg/dL Estim Creat Clear Calc 60.5 Estimated GFR > 60 Random Glucose 88 (60-115) mg/dL Lactic Acid 3.1 H* (0.5-2.0) mmol/L Lactic Acid F/U @ 2Hr (0.5-2.0) mmol/L Calcium 10.0 D (8.4-10.2) mg/dL Total Bilirubin 0.5 (0.0-1.0) mg/dL AST 32 (5-37) U/L ALT 46 H (0-40) U/L Alkaline Phosphatase 65 (39-117) U/L Troponin I High Sens < 2.7 D (<3.5-35.0) ng/L Total Protein 8.5 H (6.5-8.0) g/dL Albumin 4.6 (3.5-5.0) g/dL Lipase 10 (8-78) U/L Urine Color Urine Appearance Urine pH (5.0-9.0) Ur Specific [place] (1.005-1.025) Urine Protein (Neg-Trace) mg/dL Urine Glucose (UA) (Negative) mg/dL Urine Ketones (Negative) mg/dL Urine Blood (Negative) Urine Nitrite (Negative) Ur Leukocyte Esterase (Negative) Urine Opiates Screen (Not Detect) Urine Fentanyl Screen (Not Detect) Ur Barbiturates Screen (Not Detect) Ur Phencyclidine Scrn (Not Detect) Ur Amphetamines Screen (Not Detect) U Benzodiazepines Scrn (Not Detect) Urine Cocaine Screen (Not Detect) U Marijuana (THC) Screen (Not Detect) Ethyl Alcohol < 10 mg/dL COVID-19 (TAMMIE) Negative (Negative) COVID-19 Clin Com See Note Influenza Type A (KEVON) Negative (Negative) Influenza Type B (KEVON) Negative (Negative) Influenza A & B Note See Note 07/15/23 07/15/23 Range/Units 10:26 11:56 WBC 3.3 L (4.8-10.8) X10*3/uL RBC 4.16 L (4.60-5.80) X10*6/uL Hgb 12.6 L (14.0-18.0) g/dl Hct 38.7 L (42.0-52.0) % MCV 93.0 (80.0-98.0) fL MCH 30.3 (27.0-33.0) pg MCHC 32.6 (31.0-36.0) g/dl RDW 15.3 (11.0-16.0) % Plt Count 274 D (160-400) X10*3/uL MPV 11.4 (9.4-12.4) fL Immature Gran % (Auto) 0.0 (0.0-0.4) % Neut % (Auto) 48.2 (45-73) % Lymph % (Auto) 31.1 (20-40) % Graham % (Auto) 18.0 H (2-11) % Eos % (Auto) 2.1 (0-4) % Baso % (Auto) 0.6 (0-2) % Lymph # (Auto) 1.0 L (1.2-4.9) X10*3/uL Graham # (Auto) 0.6 (0.1-1.2) X10*3/uL Eos # (Auto) 0.1 (0.0-0.4) X10*3/uL Baso # (Auto) 0.0 (0.0-0.2) X10*3/uL Abs Immat Gran (auto) 0.00 (0.00-0.03) X10*3/uL Absolute Neuts (auto) 1.6 L (2.0-8.3) x10*3/uL Absolute Nucleated RBC 0.000 (0.0-0.012) X10*3/uL Nucleated RBC % (auto) 0.0 (0.0-0.2) /100WBC Sodium (135-145) mmol/L Potassium (3.3-5.1) mmol/L Chloride (96-108) mmol/L Carbon Dioxide (22-29) mmol/L Anion Gap (12-20) BUN (9-16) mg/dL Creatinine (0.5-1.4) mg/dL Estim Creat Clear Calc Estimated GFR Random Glucose (60-115) mg/dL Lactic Acid (0.5-2.0) mmol/L Lactic Acid F/U @ 2Hr 1.3 (0.5-2.0) mmol/L Calcium (8.4-10.2) mg/dL Total Bilirubin (0.0-1.0) mg/dL AST (5-37) U/L ALT (0-40) U/L Alkaline Phosphatase (39-117) U/L Troponin I High Sens (<3.5-35.0) ng/L Total Protein (6.5-8.0) g/dL Albumin (3.5-5.0) g/dL Lipase (8-78) U/L Urine Color Yellow Urine Appearance Clear Urine pH 8.0 (5.0-9.0) Ur Specific [place] >= 1.030 H (1.005-1.025) Urine Protein Negative (Neg-Trace) mg/dL Urine Glucose (UA) Negative (Negative) mg/dL Urine Ketones Negative (Negative) mg/dL Urine Blood Negative (Negative) Urine Nitrite Negative (Negative) Ur Leukocyte Esterase Negative (Negative) Urine Opiates Screen Not Detected (Not Detect) Urine Fentanyl Screen POSITIVE H (Not Detect) Ur Barbiturates Screen Not Detected (Not Detect) Ur Phencyclidine Scrn Not Detected (Not Detect) Ur Amphetamines Screen Not Detected (Not Detect) U Benzodiazepines Scrn Not Detected (Not Detect) Urine Cocaine Screen Not Detected (Not Detect) U Marijuana (THC) Screen Not Detected (Not Detect) Ethyl Alcohol mg/dL COVID-19 (TAMMIE) (Negative) COVID-19 Clin Com Influenza Type A (KEVON) (Negative) Influenza Type B (KEVON) (Negative) Influenza A & B Note Independent Interpretation I performed an independent interpretation of an: EKG and CT Scan Interpretation: Rate: 93 Rhythm:? normal sinus rhythm Normal P waves.? Normal JONI.?? Normal QRS complex.?? ST T wave :?? no ST elevation, no ST depression qTC:457 The study has been interpreted contemporaneously by me. Radiology Impression Discussion of test interpretation with radiology: I have reviewed the radiologist's reading. Radiologist Impression: CT/CT chest w IV con IMPRESSION: Improved airways disease/bronchopneumonia from 02/12/2023 exam. No new infiltrate seen. Multiple left-sided rib fractures of varying ages and postsurgical change as described. New or recent left anterior third and fourth rib fractures. Fleischner guidelines were followed. Independent Historian Clinical information obtained from an independent historian. History obtained from or confirmed by: EMS External Record Review External record reviewed: Inpatient record ( as noted above) and Outpatient record Discharge Plan Discharge Clinical Impression: Multiple rib fractures, Weakness, Dysphagia Patient Disposition: Still a Patient Prescriptions: No Action latanoprost 0.005 % drops 1 drp ophthalmic (eye) DAILY gabapentin 600 mg tablet 600 mg PO TID clonazepam 1 mg tablet 1 mg PO DAILY amlodipine 5 mg tablet 5 mg PO DAILY tramadol 50 mg tablet 50 mg PO DAILY PRN (Reason: Pain) mirtazapine 30 mg tablet 60 mg PO BEDTIME Biktarvy 50-200-25 mg tablet 1 tab PO DAILY albuterol sulfate 90 mcg/actuation HFA aerosol inhaler 2 puff inhalation Q6H PRN (Reason: wheezing) ferrous gluconate 324 mg (38 mg iron) tablet 324 mg PO QAM Rx Instructions: PATIENT STOP TAKING BECAUSE CONSTIPATION . HE IS AWARE HE SHOULD BE TAKING MED . calcium carbonate-vitamin D3 [Calcium 600 + D(3)] 600 mg-10 mcg (400 unit) Tablet 1 tab PO BID clotrimazole 10 mg klaudia 10 mg PO 5XD Rx Instructions: END DATE: 07/19/23 guaifenesin [Chest Congestion Relief] 100 mg/5 mL liquid 200 mg PO TID PRN (Reason: Cough) diphenhydramine HCl [Banophen] 25 mg tablet 50 mg PO BEDTIME fluticasone propion-salmeterol [Advair HFA] 230-21 mcg/actuation HFA aerosol inhaler 2 puff inhalation BID risperidone 3 mg tablet 3 mg PO BEDTIME brimonidine-timolol 0.2-0.5 % drops 1 drp ophthalmic (eye) BID
[2023-07-15 08:46] VITALS: BP 117/82; BP 118/80; PULSE 100; PULSE 96; RESP 17; TEMP 36.5; O2SAT 100; O2SAT 98; BMI 18.7
--- NOTE | 2023-07-15 08:51 | ECG_ITS ---
Test Reason : SOB, swallowing prob?? Blood Pressure : / mmHG Vent. Rate : 093 BPM Atrial Rate : 093 BPM P-R Int : 152 ms QRS Dur : 096 ms QT Int : 368 ms P-R-T Axes : 090 081 051 degrees QTc Int : 457 ms Normal sinus rhythm Incomplete right bundle branch block Nonspecific ST abnormality Anterior leads Abnormal ECG When compared with ECG of 24-JUN-2023 12:26, No significant change was found Referred By: Carmen Antonio Electronically Signed By:JAVID ARECHIGA MD
--- NOTE | 2023-07-15 09:10 | PC.NURSE ---
pt from home via ems with c/o difficulty swallowing going on for a while, 6/10 L RIB pain when he coughs. worse this morning, able to swallow ensure, not able to swallow own spit. swallow test given during triage, pt swallowed water without issue. vss. passing on care to another RN at this time.
[2023-07-15 10:09] LABS: Ethanol < 10 mg/dL
[2023-07-15 10:09] LABS: COVID-19 Test Negative (Negative); IDNOW Serial# 08D9AD1C; IDNOW Serial# BCCEAD1C; Influenza A Negative (Negative); Influenza B2 Negative (Negative)
[2023-07-15 10:12] LABS: Alanine Aminotransferase 46 U/L (0-40); Albumin Level 4.6 g/dL (3.5-5.0); Alkaline Phosphatase 65 U/L (39-117); Anion Gap 13 (12-20); Aspartate Amino Transferase 32 U/L (5-37); Bilirubin Total 0.5 mg/dL (0.0-1.0); Blood Urea Nitrogen 11 mg/dL (9-16); Carbon Dioxide 25 mmol/L (22-29); Chloride 107 mmol/L (96-108); Creatinine Clr Calc Pharmacy 60.5; Estimated Glomerular Filt Rate > 60; Glucose Random 88 mg/dL (60-115); Lipase 10 U/L (8-78); Potassium 4.1 mmol/L (3.3-5.1); Sodium 141 mmol/L (135-145); Total Protein 8.5 g/dL (6.5-8.0)
[2023-07-15] MEDS: cefTRIAXone sodium 1 GM in 0.9 % Sodium Chloride 50 ML IV (10:16)
[2023-07-15 10:33] LABS: Lactic Acid 3.1 mmol/L (0.5-2.0)
[2023-07-15 10:33] LABS: Troponin-I High Sensitivity < 2.7 ng/L (<3.5-35.0)
[2023-07-15 10:33] LABS: Basophils Percent Auto 0.6 % (0-2); Eosinophils Absolute Auto 0.1 X10*3/uL (0.0-0.4); Eosinophils Percent Auto 2.1 % (0-4); Hematocrit 38.7 % (42.0-52.0); Hemoglobin 12.6 g/dl (14.0-18.0); Lymphocytes Percent Auto 31.1 % (20-40); Mean Corpuscular HGB Conc 32.6 g/dl (31.0-36.0); Mean Corpuscular Hemoglobin 30.3 pg (27.0-33.0); Mean Platelet Volume 11.4 fL (9.4-12.4); Monocytes Absolute Auto 0.6 X10*3/uL (0.1-1.2); Neutrophils Absolute Auto 1.6 x10*3/uL (2.0-8.3); Neutrophils Percent Auto 48.2 % (45-73); Platelet Count 274 X10*3/uL (160-400); Red Blood Count 4.16 X10*6/uL (4.60-5.80); Red Cell Distribution Width 15.3 % (11.0-16.0); White Blood Count 3.3 X10*3/uL (4.8-10.8)
--- NOTE | 2023-07-15 10:46 | PC.NURSE ---
pt comes in via ems, unable to manage secretions, but able to swallow water. Saliva pools in mouth, assisted pt with spitting and removing saliva. pt very week. 22g IV inserted left hand, another 18g IV inserted by with US guidance for CT contrast. NSR on monitor. O2 sat stable PT reports chest pain on left side that increases when he coughs. family at bedside, labs and blood cultures drawn, ABX infused, plan of care ongoing, awaiting further orders.
[2023-07-15] MEDS: 0.9 % Sodium Chloride 1,000 ML 999 ML IV (10:55)
[2023-07-15 10:59] VITALS: BP 127/84; PULSE 78; RESP 18; O2SAT 98
--- NOTE | 2023-07-15 11:00 | PC.NURSE ---
pt to CT scan
[2023-07-15] MEDS: iohexoL 350 MG/ML 100 ML INFUS..BTL 65 ML IV (11:14)
[2023-07-15 11:46] LABS: Reflex Lactate? Lactic Acid Added
[2023-07-15 11:57] VITALS: BP 144/81; PULSE 71; RESP 20; O2SAT 99
[2023-07-15 12:06] LABS: Appearance Urine Clear; Color Urine Yellow; Glucose Urine UA Negative (Negative); Leukocyte Esterase Urine Negative (Negative); Nitrite Urine Negative (Negative); Specific Gravity - Urine >= 1.030 (1.005-1.025); Urine Blood Negative (Negative); Urine Ketones Negative (Negative); Urine Protein Negative (Neg-Trace)
[2023-07-15 12:14] LABS: Amphetamine Screen Urine Not Detected (Not Detect); Barbiturates, Urine Not Detected (Not Detect); Benzodiazepines Screen Urine Not Detected (Not Detect); Cannabinoid Screen Urine Not Detected (Not Detect); Cocaine Screen Urine Not Detected (Not Detect); Fentanyl, urine POSITIVE (Not Detect); Opiate Screen Urine Not Detected (Not Detect); Phencyclidine Screen Urine Not Detected (Not Detect)
[2023-07-15 12:15] LABS: ~Lactic Acid-LAB USE ONLY 1.3 mmol/L (0.5-2.0)
--- NOTE | 2023-07-15 12:40 | PC.NURSE ---
pt is unable to manage their own secretions. pt cannot swallow their saliva. INSIDE SALES ACCOUNT REPRESENTATIVE aware, speech consult ordered
--- NOTE | 2023-07-15 13:58 | MHC.CM.PN ---
CM RECEIVEED ED CONSULT FROM ED PROVIDER. CM MET WITH PT AND SCHOOL YEAR NANNY AT BEDSIDE IN ED. PT LIVES WITH FAMILY. 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 PER CHART REVIEW, THIS MAY BE [facility] HC (PT CANNOT RECALL) INDEPENDENT WITH MOBILITY AT BASELINE. PT JUST RECENTLY DC FROM [facility] AND IS WILLING TO RETURN SHOULD P.T. RECOMMEND STR. EARLY REFERRAL SENT. +HCP ON FILE. PCP DR. RICHARD JUNIOR. CM WILL CONTINUE TO FOLLOW FOR DC NEEDS/PLAN.
--- NOTE | 2023-07-15 14:34 | PC.NURSE ---
report given to overflow. Transport to take over when available
--- NOTE | 2023-07-15 15:55 | MHC.EDTECH ---
Assist patient with urinal. Brought patient a few warm blankets.
--- NOTE | 2023-07-15 15:56 | PC.NURSE ---
assumed care of this pt at 1500. pt brought to overflow unit from ed 10. pt placed on mat tester.
--- NOTE | 2023-07-15 16:55 | PHA.MEDREC ---
Pharmacy Consult ? Medication Reconciliation Pharmacy has completed the medication reconciliation. Utilized weight inspector services. Patient taking all meds from recent discharge with addition of benadryl at bedtime and guaifenesin for cough.
--- NOTE | 2023-07-15 17:29 | MHC.EDTECH ---
Feed patient his dinner.
--- NOTE | 2023-07-15 17:34 | MHC.EDTECH ---
Feed patient his dinner. Patient ate 100% of his chicken broth and drank 100% of his apple and cranberry juice without coughing.
--- NOTE | 2023-07-15 17:50 | PC.NURSE ---
honey thick consistency clear liquid diet ordered. pt was fed by tech. pt tolerated well, no cough with swallow. pt's cousin at bedside
[2023-07-15] MEDS: clonazePAM 1 MG TABLET PO (18:47)
[2023-07-15] MEDS: Ferrous Sulfate 324 MG TABLET.DR PO (18:47)
[2023-07-15] MEDS: amLODIPine Besylate 5 MG TABLET PO (18:47)
--- NOTE | 2023-07-15 18:54 | PC.NURSE ---
po meds given with apple sauce, no coughing after swallowing pills. no complains with swallow.
[2023-07-15] MEDS: guaiFENesin 100 MG/5 ML LIQUID 10 ML PO (19:28)
[2023-07-15 20:17] VITALS: PULSE 72; RESP 32; O2SAT 90
[2023-07-15] MEDS: Albuterol Sulfate 90 MCG 8 GM INHALER 2 PUFF INHALE (20:17)
[2023-07-15] MEDS: Latanoprost 0.005 % Ophth Sol 2.5 ML DROPS 1 DROP EYE-BOTH (20:31)
[2023-07-15] MEDS: Mirtazapine 30 MG TABLET 60 MG PO (20:31)
[2023-07-15] MEDS: Brimonidine Tartrate 0.2% Oph 5 ML BOTTLE 1 DROP EYE-BOTH (20:31)
[2023-07-15] MEDS: timoloL maleate 0.5 % Oph Sol 5 ML DRBTL 1 DROP EYE-BOTH (20:31)
[2023-07-15] MEDS: diphenhydrAMINE HCL 25 MG CAPSULE 50 MG PO (20:32)
[2023-07-15] MEDS: Gabapentin 600 MG TABLET PO (20:32)
[2023-07-15] MEDS: Bictegrav/Emtricit/Tenofov Ala TABLET 1 TAB PO (20:32)
[2023-07-15] MEDS: risperiDONE 3 MG TABLET PO (20:43)
[2023-07-15] MEDS: Calcium + Vitamin D 250 MG TABLET 500 MG PO (20:43)
[2023-07-15 20:54] VITALS: BP 111/47; PULSE 65; RESP 18; TEMP 36.4; O2SAT 89
--- NOTE | 2023-07-15 20:55 | MHC.EDTECH ---
pt repositioned, vss resting quietly
--- NOTE | 2023-07-15 21:02 | PC.NURSE ---
pt assessed, non-productive cough c/o chest pain when he cough, assisted pt with ADL's
--- NOTE | 2023-07-15 21:31 | PC.NURSE ---
pt was able to take his meds whole with applesauce, HOB elevated, swallowed w/o any difficulty
[2023-07-16 05:57] VITALS: BP 119/81; PULSE 60; RESP 12; TEMP 36.9; O2SAT 97
--- NOTE | 2023-07-16 07:44 | ED_ITS ---
HPI - General Adult General Chief complaint: General Medical Stated complaint: WEAK/CANT SWALLOW/EAT PER EMS Time Seen by Provider: 07/15/23 08:41 Source: patient and EMS Mode of arrival: EMS Limitations: language barrier ( Azeri-speaking medical receptionist medical assistant utilized) Related Data Home Medications Medication Instructions Recorded Confirmed amlodipine 5 mg tablet 5 mg PO DAILY 12/30/22 07/15/23 bictegravir 50 mg-emtricitabine 1 tab PO DAILY 12/30/22 07/15/23 200 mg-tenofovir alafenam 25 mg tablet (Biktarvy) clonazepam 1 mg tablet 1 mg PO DAILY 12/30/22 07/15/23 gabapentin 600 mg tablet 600 mg PO TID 12/30/22 07/15/23 latanoprost 0.005 % eye drops 1 drp ophthalmic (eye) DAILY 12/30/22 07/15/23 mirtazapine 30 mg tablet 60 mg PO BEDTIME 12/30/22 07/15/23 tramadol 50 mg tablet 50 mg PO DAILY PRN Pain 12/30/22 07/15/23 albuterol sulfate 90 mcg/actuation 2 puff inhalation Q6H PRN wheezing 02/12/23 07/15/23 aerosol inhaler ferrous gluconate 324 mg (38 mg 324 mg PO DAILY 02/12/23 07/15/23 iron) tablet brimonidine 0.2 %-timolol 0.5 % 1 drp ophthalmic (eye) BID 06/01/23 07/15/23 eye drops fluticasone propionate 230 2 puff inhalation BID 06/01/23 07/15/23 mcg-salmeterol 21 mcg/actuation HFA inhaler (Advair HFA) risperidone 3 mg tablet 3 mg PO BEDTIME 06/01/23 07/15/23 calcium carbonate 600 mg-vitamin 1 tab PO BID 06/24/23 07/15/23 D3 10 mcg (400 unit) tablet (Calcium 600 + D(3)) diphenhydramine HCl 25 mg tablet 50 mg PO BEDTIME 07/15/23 07/15/23 (Banophen) guaifenesin 100 mg/5 mL oral 200 mg PO TID PRN Cough 07/15/23 07/15/23 liquid (Chest Congestion Relief) Allergies Allergy/AdvReac Type Severity Reaction Status Date / Time Seasonal Allergies Allergy Intermediate Eye Verified 07/15/23 09:10 Drainage codeine Allergy Mild Rash Verified 07/15/23 09:10 [From Tylenol-Codeine #3] levofloxacin [From Levaquin] Allergy Mild Rash Verified 07/15/23 09:10 metoclopramide [From Reglan] Allergy Mild Rash Verified 07/15/23 09:10 acetaminophen Allergy Unknown Unknown Verified 07/15/23 09:10 [Tylenol-Codeine #3] Penicillins [PENICILLINS] Allergy Unknown Rash Verified 07/15/23 09:10 tramadol [From Ultram] AdvReac Mild Nausea and Verified 07/15/23 09:10 Vomiting ibuprofen [From Motrin] AdvReac Unknown Reflux Verified 07/15/23 09:10 PMFSH Past Medical History Medical History History of empyema of pleura (01/05/23) Hypertension Closed fracture of leg Hepatitis C Kidney stones Pleuritic chest pain Pneumonia Substance abuse Hemorrhoids Depression HIV (human immunodeficiency virus infection) Asthma Surgical History H/O hemorrhoidectomy Social History Social History Household Members: None Housing: Apartment Do you presently have visiting nurse or other home services: Yes Alcohol intake: current Alcohol intake frequency: does not drink Patient Tobacco Use Status: Never used Tobacco Smoked in Last 30 Days: No Second Hand Smoke Exposure: No Use of substances other than those prescribed or required for medical reasons: No Substance Use Type: Crack/Cocaine Advance Directives: Yes Advance Directives on File: Yes Advance Directives Date on File: 04/25/21 service: No Current occupational status: disabled Physical Exam ED Vital Signs: Vital Signs - 24 hr 07/15/23 08:46 07/15/23 10:59 07/15/23 11:57 Temperature 97.7 F Pulse Rate 96 78 71 Respiratory Rate 17 18 20 Blood Pressure 117/82 127/84 144/81 H Pulse Oximetry 98 98 99 Oxygen Delivery Method Room Air Room Air Room Air 07/15/23 20:17 07/15/23 20:54 07/16/23 05:57 Temperature 97.5 F 98.4 F Pulse Rate 72 65 60 Respiratory Rate 32 H 18 12 Blood Pressure 111/47 L 119/81 Pulse Oximetry 89 L 97 Oxygen Delivery Method Room Air Room Air BMI result Body Mass Index 18.7 Medications Administered Generic Name Dose Route Start Last Admin Trade Name Freq PRN Reason Stop Dose Admin Albuterol Sulfate 2 puff 07/15/23 18:18 07/15/23 20:17 Albuterol Sulfate 90 Mcg 8 Gm Inhaler INHALE 2 puff Q6H PRN Administration wheezing Amlodipine Besylate 5 mg 07/15/23 18:30 07/15/23 18:47 Amlodipine Besylate 5 Mg Tablet PO 5 mg DAILY MICHAEL Administration Protocol Bictegravir/Emtricitabine/Tenofovir 1 tab 07/15/23 18:30 07/15/23 20:32 Bictegrav/Emtricit/Tenofov Ala Tablet PO 1 tab DAILY MICHAEL Administration Brimonidine Tartrate 1 drop 07/15/23 21:00 07/15/23 20:31 Brimonidine Tartrate 0.2% Oph 5 Ml Bottle EYE-BOTH 1 drop BID MICHAEL Administration Calcium Carbonate/Cholecalciferol 500 mg 07/15/23 21:00 07/15/23 20:43 Calcium + Vitamin D 250 Mg Tablet PO 500 mg BID MICHAEL Administration Clonazepam 1 mg 07/15/23 18:30 07/15/23 18:47 Clonazepam 1 Mg Tablet PO 1 mg DAILY MICHAEL Administration Diphenhydramine HCl 50 mg 07/15/23 21:00 07/15/23 20:32 Diphenhydramine Hcl 25 Mg Capsule PO 50 mg BEDTIME MICHAEL Administration Ferrous Sulfate 324 mg 07/15/23 18:30 07/15/23 18:47 Ferrous Sulfate 324 Mg Tablet.Dr PO 324 mg DAILY MICHAEL Administration Gabapentin 600 mg 07/15/23 21:00 07/15/23 20:32 Gabapentin 600 Mg Tablet PO 600 mg TID MICHAEL Administration Guaifenesin 10 ml 07/15/23 18:18 07/15/23 19:28 Guaifenesin 100 Mg/5 Ml Liquid PO 10 ml TID PRN Administration Cough Latanoprost 1 drop 07/15/23 21:00 07/15/23 20:31 Latanoprost 0.005 % Ophth Carol 2.5 Ml Drops EYE-BOTH 1 drop BEDTIME MICHAEL Administration Mirtazapine 60 mg 07/15/23 21:00 07/15/23 20:31 Mirtazapine 30 Mg Tablet PO 60 mg BEDTIME MICHAEL Administration Risperidone 3 mg 07/15/23 21:00 07/15/23 20:43 Risperidone 3 Mg Tablet PO 3 mg BEDTIME MICHAEL Administration Timolol Maleate 1 drop 07/15/23 21:00 07/15/23 20:31 Timolol Maleate 0.5 % Oph Carol 5 Ml Drbtl EYE-BOTH 1 drop BID MICHAEL Administration Discontinued Medications Generic Name Dose Route Start Last Admin Trade Name Akira PRN Reason Stop Dose Admin Ceftriaxone Sodium 1 gm/ 50 mls @ 100 mls/hr 07/15/23 09:01 07/15/23 10:46 Sodium Chloride IV 07/15/23 09:30 Infused ONCE ONE Infusion Sodium Chloride 1,000 mls @ 999 mls/hr 07/15/23 11:00 07/15/23 11:56 Ns IV 07/15/23 12:00 Infused .Q1H1M MICHAEL Infusion Iohexol 65 ml 07/15/23 11:13 07/15/23 11:14 Iohexol 350 Mg/Ml 100 Ml Infus..Btl IV 07/15/23 11:14 65 ml ONCE ONE Administration Medical Decision Making Lab Data 07/15/23 10:26 07/15/23 09:51 Labs: Lab Results 07/15/23 07/15/23 07/15/23 Range/Units 09:43 09:51 09:52 WBC (4.8-10.8) X10*3/uL RBC (4.60-5.80) X10*6/uL Hgb (14.0-18.0) g/dl Hct (42.0-52.0) % MCV (80.0-98.0) fL MCH (27.0-33.0) pg MCHC (31.0-36.0) g/dl RDW (11.0-16.0) % Plt Count (160-400) X10*3/uL MPV (9.4-12.4) fL Immature Gran % (Auto) (0.0-0.4) % Neut % (Auto) (45-73) % Lymph % (Auto) (20-40) % [place] % (Auto) (2-11) % Eos % (Auto) (0-4) % Baso % (Auto) (0-2) % Lymph # (Auto) (1.2-4.9) X10*3/uL [place] # (Auto) (0.1-1.2) X10*3/uL Eos # (Auto) (0.0-0.4) X10*3/uL Baso # (Auto) (0.0-0.2) X10*3/uL Abs Immat Gran (auto) (0.00-0.03) X10*3/uL Absolute Neuts (auto) (2.0-8.3) x10*3/uL Absolute Nucleated RBC (0.0-0.012) X10*3/uL Nucleated RBC % (auto) (0.0-0.2) /100WBC Sodium 141 (135-145) mmol/L Potassium 4.1 (3.3-5.1) mmol/L Chloride 107 (96-108) mmol/L Carbon Dioxide 25 (22-29) mmol/L Anion Gap 13 (12-20) BUN 11 (9-16) mg/dL Creatinine 0.95 (0.5-1.4) mg/dL Estim Creat Clear Calc 60.5 Estimated GFR > 60 Random Glucose 88 (60-115) mg/dL Lactic Acid 3.1 H* (0.5-2.0) mmol/L Lactic Acid F/U @ 2Hr (0.5-2.0) mmol/L Calcium 10.0 D (8.4-10.2) mg/dL Total Bilirubin 0.5 (0.0-1.0) mg/dL AST 32 (5-37) U/L ALT 46 H (0-40) U/L Alkaline Phosphatase 65 (39-117) U/L Troponin I High Sens < 2.7 D (<3.5-35.0) ng/L Total Protein 8.5 H (6.5-8.0) g/dL Albumin 4.6 (3.5-5.0) g/dL Lipase 10 (8-78) U/L Urine Color Urine Appearance Urine pH (5.0-9.0) Ur Specific [place] (1.005-1.025) Urine Protein (Neg-Trace) mg/dL Urine Glucose (UA) (Negative) mg/dL Urine Ketones (Negative) mg/dL Urine Blood (Negative) Urine Nitrite (Negative) Ur Leukocyte Esterase (Negative) Urine Opiates Screen (Not Detect) Urine Fentanyl Screen (Not Detect) Ur Barbiturates Screen (Not Detect) Ur Phencyclidine Scrn (Not Detect) Ur Amphetamines Screen (Not Detect) U Benzodiazepines Scrn (Not Detect) Urine Cocaine Screen (Not Detect) U Marijuana (THC) Screen (Not Detect) Ethyl Alcohol < 10 mg/dL COVID-19 (TAMMIE) Negative (Negative) COVID-19 Clin Com See Note Influenza Type A (KEVON) Negative (Negative) Influenza Type B (KEVON) Negative (Negative) Influenza A & B Note See Note 07/15/23 07/15/23 Range/Units 10:26 11:56 WBC 3.3 L (4.8-10.8) X10*3/uL RBC 4.16 L (4.60-5.80) X10*6/uL Hgb 12.6 L (14.0-18.0) g/dl Hct 38.7 L (42.0-52.0) % MCV 93.0 (80.0-98.0) fL MCH 30.3 (27.0-33.0) pg MCHC 32.6 (31.0-36.0) g/dl RDW 15.3 (11.0-16.0) % Plt Count 274 D (160-400) X10*3/uL MPV 11.4 (9.4-12.4) fL Immature Gran % (Auto) 0.0 (0.0-0.4) % Neut % (Auto) 48.2 (45-73) % Lymph % (Auto) 31.1 (20-40) % [place] % (Auto) 18.0 H (2-11) % Eos % (Auto) 2.1 (0-4) % Baso % (Auto) 0.6 (0-2) % Lymph # (Auto) 1.0 L (1.2-4.9) X10*3/uL [place] # (Auto) 0.6 (0.1-1.2) X10*3/uL Eos # (Auto) 0.1 (0.0-0.4) X10*3/uL Baso # (Auto) 0.0 (0.0-0.2) X10*3/uL Abs Immat Gran (auto) 0.00 (0.00-0.03) X10*3/uL Absolute Neuts (auto) 1.6 L (2.0-8.3) x10*3/uL Absolute Nucleated RBC 0.000 (0.0-0.012) X10*3/uL Nucleated RBC % (auto) 0.0 (0.0-0.2) /100WBC Sodium (135-145) mmol/L Potassium (3.3-5.1) mmol/L Chloride (96-108) mmol/L Carbon Dioxide (22-29) mmol/L Anion Gap (12-20) BUN (9-16) mg/dL Creatinine (0.5-1.4) mg/dL Estim Creat Clear Calc Estimated GFR Random Glucose (60-115) mg/dL Lactic Acid (0.5-2.0) mmol/L Lactic Acid F/U @ 2Hr 1.3 (0.5-2.0) mmol/L Calcium (8.4-10.2) mg/dL Total Bilirubin (0.0-1.0) mg/dL AST (5-37) U/L ALT (0-40) U/L Alkaline Phosphatase (39-117) U/L Troponin I High Sens (<3.5-35.0) ng/L Total Protein (6.5-8.0) g/dL Albumin (3.5-5.0) g/dL Lipase (8-78) U/L Urine Color Yellow Urine Appearance Clear Urine pH 8.0 (5.0-9.0) Ur Specific [place] >= 1.030 H (1.005-1.025) Urine Protein Negative (Neg-Trace) mg/dL Urine Glucose (UA) Negative (Negative) mg/dL Urine Ketones Negative (Negative) mg/dL Urine Blood Negative (Negative) Urine Nitrite Negative (Negative) Ur Leukocyte Esterase Negative (Negative) Urine Opiates Screen Not Detected (Not Detect) Urine Fentanyl Screen POSITIVE H (Not Detect) Ur Barbiturates Screen Not Detected (Not Detect) Ur Phencyclidine Scrn Not Detected (Not Detect) Ur Amphetamines Screen Not Detected (Not Detect) U Benzodiazepines Scrn Not Detected (Not Detect) Urine Cocaine Screen Not Detected (Not Detect) U Marijuana (THC) Screen Not Detected (Not Detect) Ethyl Alcohol mg/dL COVID-19 (TAMMIE) (Negative) COVID-19 Clin Com Influenza Type A (KEVON) (Negative) Influenza Type B (KEVON) (Negative) Influenza A & B Note Discharge Plan Discharge Clinical Impression: Multiple rib fractures, Weakness, Dysphagia Patient Disposition: Still a Patient Prescriptions: No Action latanoprost 0.005 % drops 1 drp ophthalmic (eye) DAILY gabapentin 600 mg tablet 600 mg PO TID clonazepam 1 mg tablet 1 mg PO DAILY amlodipine 5 mg tablet 5 mg PO DAILY tramadol 50 mg tablet 50 mg PO DAILY PRN (Reason: Pain) mirtazapine 30 mg tablet 60 mg PO BEDTIME Biktarvy 50-200-25 mg tablet 1 tab PO DAILY albuterol sulfate 90 mcg/actuation HFA aerosol inhaler 2 puff inhalation Q6H PRN (Reason: wheezing) ferrous gluconate 324 mg (38 mg iron) tablet 324 mg PO DAILY Rx Instructions: PATIENT STOP TAKING BECAUSE CONSTIPATION . HE IS AWARE HE SHOULD BE TAKING MED . calcium carbonate-vitamin D3 [Calcium 600 + D(3)] 600 mg-10 mcg (400 unit) Tablet 1 tab PO BID guaifenesin [Chest Congestion Relief] 100 mg/5 mL liquid 200 mg PO TID PRN (Reason: Cough) diphenhydramine HCl [Banophen] 25 mg tablet 50 mg PO BEDTIME fluticasone propion-salmeterol [Advair HFA] 230-21 mcg/actuation HFA aerosol inhaler 2 puff inhalation BID risperidone 3 mg tablet 3 mg PO BEDTIME brimonidine-timolol 0.2-0.5 % drops 1 drp ophthalmic (eye) BID
[2023-07-16 07:51] VITALS: BP 122/78; PULSE 68; RESP 18; TEMP 36.4; O2SAT 95
[2023-07-16 08:08] VITALS: BP 122/78; PULSE 68; O2SAT 95
[2023-07-16] MEDS: Calcium + Vitamin D 250 MG TABLET 500 MG PO (08:21)
[2023-07-16] MEDS: Brimonidine Tartrate 0.2% Oph 5 ML BOTTLE 1 DROP EYE-BOTH ×2 (08:22→20:33)
[2023-07-16] MEDS: Bictegrav/Emtricit/Tenofov Ala TABLET 1 TAB PO (08:22)
[2023-07-16] MEDS: Gabapentin 600 MG TABLET PO (08:22)
[2023-07-16] MEDS: amLODIPine Besylate 5 MG TABLET PO (08:22)
[2023-07-16] MEDS: Ferrous Sulfate 324 MG TABLET.DR PO (08:22)
[2023-07-16] MEDS: clonazePAM 1 MG TABLET PO (08:22)
[2023-07-16] MEDS: timoloL maleate 0.5 % Oph Sol 5 ML DRBTL 1 DROP EYE-BOTH ×2 (08:23→20:33)
--- NOTE | 2023-07-16 10:31 | MHC.CM.ED ---
Addendum entered by Nadine Adames 07/16/23 12:45: [facility] is unsure if they will be able to offer a bed today. Referral broadcasted in [facility] at this time. Met with patient and door technician. Patient doesn't want to go to rehab. He wants to go home. T/W explained physical therapy rec STR. Also explained R[employer]ARY SHEAR CUTTER being worried about swallowing issues. Patient would like to see what ROTARY SHEAR CUTTER says before making decision. At this time, it appears more work up is necessary. Dilia JC aware. Original Note: Patient remains in ER overflow. Physical therapy eval completed. Short term rehab is recommended. [facility] is 1st choice. Clinical updates sent via [facility]. Continue to monitor for d/c needs.
[2023-07-16] MEDS: Fluticasone/Vilanterol 200/25 BLST.W.DEV 1 PUFF INHALE (11:47)
[2023-07-16 11:48] VITALS: PULSE 66; RESP 18; O2SAT 94
--- NOTE | 2023-07-16 13:30 | PC.NURSE ---
NADEEN ORTEGA AT BEDSIDE, PT AWARE OF PLAN OF CARE.
--- NOTE | 2023-07-16 13:53 | MHC.SL.SWA ---
Speech Pathologist Impression: Risk of Aspiration Oralpharyngeal Dysphagia Risk of Aspiration Due to: Medically Fragile History of Pneumonia Dysphasia Diet Status: DOWNGRADE TO NPO Liquid Consistency and Strategies for Safe Swallow: Liquid Intake Recommendation: NPO Solid Food Consistency: Dietary Recommendations: NPO Additional Modifications to Solid Foods: Pt took sip of honey thickened broth and ice chips. Liquid pooling in the floor of pt's mouth and in his cheeks. No initiation of pharyngeal swallow. Pt was unable to manipulate or spit out bolus. Bolus was manually removed by [employer] w/ oral swabs. Recommend DOWNGRADE to NPO at this time, with frequent oral care for comfort and hygiene. Notified MD, RN, RD via [employer] Message. Oral Medication Intake: NPO Please contact the pharmacy regarding appropriate crushable or liquid drug formulations that are available whenever modified delivery is recommended. Supervision While Eating and Drinking for Safe Swallow: PO with [employer] Swallowing Recommended Treatments: Gustatory Stimulation Compens. Strategy Educat. Recommendation for Speech: Inpatient Speech Therapy Insole Toe Snipping Machine Operator Clinican/Clinical Fellow: No Supervisory Statement: I have reviewed and agree with the student/clinical fellow's documentation: N/A Speech Language Pathologist: Laura Hill M.A., CCC-[employer]
--- NOTE | 2023-07-16 14:07 | P.HPHOSP_ITS ---
History of Present Illness Date of Service: 07/16/23 Chief Complaint: Trouble swallowing 58yo M with HIV [viral load undetectable 06/02/23, CD4 377 11/29/22, mild persistent asthma, history HCV, and history empyema of the lung. He is presented to the ED with difficulty swallowing that has been ongoing for a while. He is not able to swallow food, or pills. He is also been feeling very weak. He is also complaining of chest pain and CT of the chest show multiple rib fracture of varying ages. Speech did swallow evaluation and he failed Review of Systems 2 Review of Systems: Gen: no fever Resp: no sob, no cough CV: no chest, no ARIZMENDI, no leg edema GI: No n/v, no abd pain, has trouble swallowing Neuro: No confusion Yes all other systems are reviewed and are negative [facility] Medical History History of empyema of pleura (01/05/23) Hypertension Closed fracture of leg Hepatitis C Kidney stones Pleuritic chest pain Pneumonia Substance abuse Hemorrhoids Depression HIV (human immunodeficiency virus infection) Asthma Surgical History H/O hemorrhoidectomy Social History Household Members: Other Household Members Other:: sister Housing: Apartment Do you presently have visiting nurse or other home services: Yes Alcohol intake: current Alcohol intake frequency: does not drink Patient Tobacco Use Status: Never used Tobacco Smoked in Last 30 Days: No Second Hand Smoke Exposure: No Use of substances other than those prescribed or required for medical reasons: No Substance Use Type: Crack/Cocaine Currently Displaying Signs/Symptoms of Drug Intoxication Withdrawal: No Have you been hit, kicked, punched, or otherwise hurt by someone within the past year? If so, by whom?: No Do you feel safe in your current relationship?: No Current Relationship Is there a partner from a previous relationship who is making you feel unsafe now?: No Are you made to feel afraid or neglected: No Advance Directives: Yes Advance Directives on File: Yes Advance Directives Date on File: 04/25/21 Do you have thoughts of harming others: None Do you have a plan to hurt others: No Plan Recently lost weight without trying: Yes Nutrition Risks: On aspiration precautions service: No Current occupational status: disabled Meds Allergies Allergy/AdvReac Type Severity Reaction Status Date / Time Seasonal Allergies Allergy Intermediate Eye Verified 07/15/23 09:10 Drainage codeine Allergy Mild Rash Verified 07/15/23 09:10 [From Tylenol-Codeine #3] levofloxacin [From Levaquin] Allergy Mild Rash Verified 07/15/23 09:10 metoclopramide [From Reglan] Allergy Mild Rash Verified 07/15/23 09:10 acetaminophen Allergy Unknown Unknown Verified 07/15/23 09:10 [Tylenol-Codeine #3] Penicillins [PENICILLINS] Allergy Unknown Rash Verified 07/15/23 09:10 tramadol [From Ultram] AdvReac Mild Nausea and Verified 07/15/23 09:10 Vomiting ibuprofen [From Motrin] AdvReac Unknown Reflux Verified 07/15/23 09:10 Active Medications: Current Medications Albuterol Sulfate (Albuterol Sulfate 90 Mcg 8 Gm Inhaler) 2 puff INHALE Q6H PRN PRN Reason: wheezing Last Admin: 07/15/23 20:17 Dose: 2 puff Amlodipine Besylate (Amlodipine Besylate 5 Mg Tablet) 5 mg PO DAILY [facility]; Protocol Last Admin: 07/16/23 08:22 Dose: 5 mg Bictegravir/Emtricitabine/Tenofovir (Bictegrav/Emtricit/Tenofov Ala Tablet) 1 tab PO DAILY [facility] Last Admin: 07/16/23 08:22 Dose: 1 tab Brimonidine Tartrate (Brimonidine Tartrate 0.2% Oph 5 Ml Bottle) 1 drop EYE- BOTH BID [facility] Last Admin: 07/16/23 08:22 Dose: 1 drop Calcium Carbonate/Cholecalciferol (Calcium + Vitamin D 250 Mg Tablet) 500 mg PO BID [facility] Last Admin: 07/16/23 08:21 Dose: 500 mg Clonazepam (Clonazepam 1 Mg Tablet) 1 mg PO DAILY [facility] Last Admin: 07/16/23 08:22 Dose: 1 mg Diphenhydramine HCl (Diphenhydramine Hcl 25 Mg Capsule) 50 mg PO BEDTIME [facility] Last Admin: 07/15/23 20:32 Dose: 50 mg Ferrous Sulfate (Ferrous Sulfate 324 Mg Tablet.Dr) 324 mg PO DAILY [facility] Last Admin: 07/16/23 08:22 Dose: 324 mg Fluticasone/Vilanterol (Fluticasone/Vilanterol 200/25 Blst.W.Dev) 1 puff INHALE RDAILY [facility] Last Admin: 07/16/23 11:47 Dose: 1 puff Gabapentin (Gabapentin 600 Mg Tablet) 600 mg PO TID [facility] Last Admin: 07/16/23 08:22 Dose: 600 mg Guaifenesin (Guaifenesin 100 Mg/5 Ml Liquid) 10 ml PO TID PRN PRN Reason: Cough Last Admin: 07/15/23 19:28 Dose: 10 ml Dextrose/Sodium Chloride (D51/2ns) 1,000 mls @ 100 mls/hr IVCONT .Q10H [facility] Latanoprost (Latanoprost 0.005 % Ophth [place] 2.5 Ml Drops) 1 drop EYE-BOTH BEDTIME [facility] Last Admin: 07/15/23 20:31 Dose: 1 drop Melatonin (Melatonin 3 Mg Tablet) 6 mg PO BEDTIME PRN PRN Reason: Insomnia Mirtazapine (Mirtazapine 30 Mg Tablet) 60 mg PO BEDTIME [facility] Last Admin: 07/15/23 20:31 Dose: 60 mg Risperidone (Risperidone 3 Mg Tablet) 3 mg PO BEDTIME [facility] Last Admin: 07/15/23 20:43 Dose: 3 mg Sodium Chloride (0.9 % Sodium Chloride Flush 3 Ml Syringe) 3 ml IVFLUSH QSHIFT [facility] Timolol Maleate (Timolol Maleate 0.5 % Oph Carol 5 Ml Drbtl) 1 drop EYE-BOTH BID [facility] Last Admin: 07/16/23 08:23 Dose: 1 drop Home Medications Medication Instructions Recorded Confirmed Last Taken Type amlodipine 5 mg tablet 5 mg PO DAILY 12/30/22 07/15/23 07/14/23 History bictegravir 50 mg-emtricitabine 1 tab PO DAILY 12/30/22 07/15/23 07/14/23 History 200 mg-tenofovir alafenam 25 mg tablet (Biktarvy) clonazepam 1 mg tablet 1 mg PO DAILY 12/30/22 07/15/23 07/14/23 History gabapentin 600 mg tablet 600 mg PO TID 12/30/22 07/15/23 07/14/23 History latanoprost 0.005 % eye drops 1 drp ophthalmic (eye) DAILY 12/30/22 07/15/23 07/14/23 History mirtazapine 30 mg tablet 60 mg PO BEDTIME 12/30/22 07/15/23 07/14/23 History tramadol 50 mg tablet 50 mg PO DAILY PRN Pain 12/30/22 07/15/23 Unknown History albuterol sulfate 90 mcg/actuation 2 puff inhalation Q6H PRN wheezing 02/12/23 07/15/23 Unknown History aerosol inhaler ferrous gluconate 324 mg (38 mg 324 mg PO DAILY 02/12/23 07/15/23 07/14/23 History iron) tablet brimonidine 0.2 %-timolol 0.5 % 1 drp ophthalmic (eye) BID 06/01/23 07/15/23 07/14/23 History eye drops fluticasone propionate 230 2 puff inhalation BID 06/01/23 07/15/23 07/14/23 History mcg-salmeterol 21 mcg/actuation HFA inhaler (Advair HFA) risperidone 3 mg tablet 3 mg PO BEDTIME 06/01/23 07/15/23 07/14/23 History calcium carbonate 600 mg-vitamin 1 tab PO BID 06/24/23 07/15/23 07/14/23 History D3 10 mcg (400 unit) tablet (Calcium 600 + D(3)) diphenhydramine HCl 25 mg tablet 50 mg PO BEDTIME 07/15/23 07/15/23 07/14/23 History (Banophen) guaifenesin 100 mg/5 mL oral 200 mg PO TID PRN Cough 07/15/23 07/15/23 Unknown History liquid (Chest Congestion Relief) Physical Exam 2 Vital Signs and Narrative: Vital Signs: Last Vital Signs Temp 97.6 F 07/16/23 07:51 Pulse 66 07/16/23 11:48 Resp 18 07/16/23 11:48 BP 122/78 07/16/23 08:08 Pulse Ox 95 07/16/23 08:08 O2 Del Method Room Air 07/16/23 07:51 BMI result Body Mass Index 18.7 Results Labs 07/15/23 10:26 07/15/23 09:51 Assessment and Plan (1) Dysphagia: Status: Acute (2) Weakness: Status: Acute Plan 58yo M with HIV [viral load undetectable 06/02/23, CD4 377 11/29/22, mild persistent asthma, history HCV, and history empyema of the lung here with dysphagia and chest pain related to rib fractures Dysphagia etiology unclear but concern for fungal esophagitis NPO, IV diflucan, GI consult HIV - CD4 377 11/29/22, RNA undetectable 06/02/23; -continue Biktarvy when able to take PO Chest pain d/t rib fracture--pain meds PRN HTN--cnot able to take meds at this time, if needed would give IV meds Admission to last at least 2 midnights for Dysphagia work up and need to feed Moderate protein calory malnutrition--Supplement when able to take PO Full code DVT--Lovenox admission for at least 2 midnights for management of dysphagia, odynophagia not able to eat or take meds, on IVF and meds Quality Stroke Does the patient have a stroke diagnosis?: No VTE Prior VTE?: No VTE Risk Level:: Medical - low VTE Device Contraindication: Treatment Not Indicated VTE Drug Contraindication: N/A - Med Ordered
[2023-07-16 15:23] VITALS: BP 108/77; PULSE 64; RESP 16; TEMP 37.1; O2SAT 94
[2023-07-16] MEDS: Enoxaparin Sodium 40 MG/0.4 ML SYRINGE SUBCUT (15:25)
--- NOTE | 2023-07-16 15:27 | MHC.EDTECH ---
This pct assumed care of pt at 1500 ,vitals taken ,pt belongings list done ,pt comfortable at this time ,no apparent distress noted .
[2023-07-16] MEDS: Dextrose 5 % and 0.45 % NaCl 1,000 ML 100 ML IVCONT (15:30)
[2023-07-16 15:32] VITALS: BMI 18.7
--- NOTE | 2023-07-16 15:48 | MHC.CLN ---
NUTRITION CONSULT FOR [employer]HEX[employer]. CURRENTLY NPO DUE TO DYSPHAGIA. DIFFICULTY SWALLOWING REPORTED PRIOR TO ADMISSION. QUALIFIES NON SEVERE, MODERATE MALNUTRITION IN THE CONTEXT OF CHRONIC ILLNESS. MODERATE DEPLETION OF BODY FAT AND MUSCLE MASS NOTED. WEIGHT LOSS TREND X 9 MONTHS, -18%. FOLLOW FOR DIET ADVANCEMENT AND POSSIBLE NEED FOR ADDITIONAL NUTRITION INTERVENTIONS.
[2023-07-16] MEDS: Morphine Sulfate 2 MG/ML CARTRIDGE IVPUSH (16:44)
[2023-07-16 19:04] VITALS: BP 118/75; PULSE 58; RESP 18; TEMP 36.4; O2SAT 97
[2023-07-16] MEDS: Latanoprost 0.005 % Ophth Sol 2.5 ML DROPS 1 DROP EYE-BOTH (20:33)
[2023-07-16] MEDS: 0.9 % Sodium Chloride Flush 3 ML SYRINGE IVFLUSH (23:45)
[2023-07-17] VITALS (11 sets, daily range): BP systolic 95–138; BP diastolic 48–84; PULSE 50–80; RESP 16–20; TEMP 36.3–36.9; O2SAT 93–98
[2023-07-17] MEDS: Dextrose 5 % and 0.45 % NaCl 1,000 ML 100 ML IVCONT ×3 (01:16→21:21)
[2023-07-17] MEDS: Morphine Sulfate 2 MG/ML CARTRIDGE IVPUSH ×3 (02:43→18:36)
[2023-07-17] MEDS: 0.9 % Sodium Chloride Flush 3 ML SYRINGE IVFLUSH ×2 (08:04→15:33)
--- NOTE | 2023-07-17 08:27 | MHC.SHP ---
Pre-Procedural Eval Section A Date of Service: 07/17/23 The patient is an INPATIENT: Yes Changes since office visit: No Cold of Flu in the past 2 weeks, No New Medical Problems, No Changes in Medication and No Patient answered all questions The History & Physical has been completed within 30 days and I have reviewed it.: Yes Section B Chief Complaint: Dysphagia Allergies: Allergies Allergy/AdvReac Type Severity Reaction Status Date / Time Seasonal Allergies Allergy Intermediate Eye Verified 07/15/23 09:10 Drainage codeine Allergy Mild Rash Verified 07/15/23 09:10 [From Tylenol-Codeine #3] levofloxacin [From Levaquin] Allergy Mild Rash Verified 07/15/23 09:10 metoclopramide [From Reglan] Allergy Mild Rash Verified 07/15/23 09:10 acetaminophen Allergy Unknown Unknown Verified 07/15/23 09:10 [Tylenol-Codeine #3] Penicillins [PENICILLINS] Allergy Unknown Rash Verified 07/15/23 09:10 tramadol [From Ultram] AdvReac Mild Nausea and Verified 07/15/23 09:10 Vomiting ibuprofen [From Motrin] AdvReac Unknown Reflux Verified 07/15/23 09:10 Plan I have reviewed the history and physical and performed a pertinent physical examination on my patient. No changes have occurred unless specified. Time Spent With Patient Time: Total time managing care of this patient today ____ minutes.
--- NOTE | 2023-07-17 08:28 | PM.EVENT ---
Event Note Date of Service: 07/17/23 Event Note: EGD planned for later this am for further evaluation of UGI symptoms. Time Spent With Patient Time: Total time managing care of this patient today ____ minutes.
[2023-07-17] MEDS: Fluticasone/Vilanterol 200/25 BLST.W.DEV 1 PUFF INHALE (08:33)
--- NOTE | 2023-07-17 08:58 | P.PNIM_ITS ---
Subjective Subjective Date of Service: 07/17/23 Interval History: f/u on dysphagia and odynophagia interval history: still not able to eat Physical Exam 2 Vital Signs: Vital Signs: Last Vital Signs Temp 98 F 07/17/23 07:13 Pulse 71 07/17/23 08:35 Resp 18 07/17/23 08:35 BP 119/78 07/17/23 07:13 Pulse Ox 96 07/17/23 07:13 O2 Del Method Room Air 07/17/23 07:13 BMI result Body Mass Index 18.7 Const: Other: General: AO X 3, no acute distress Resp: CTA bilateral Heent no mouth sores CVS: S1,S2,RRR GI: +BS, NT, no distention Skin: No rash Neuro: motor grossly intact Psych: appropriate affect Objective Data Active Medications Albuterol Sulfate (Albuterol Sulfate 90 Mcg 8 Gm Inhaler) 2 puff INHALE Q6H PRN PRN Reason: wheezing Last Admin: 07/15/23 20:17 Dose: 2 puff Documented By: DONNELL Amlodipine Besylate (Amlodipine Besylate 5 Mg Tablet) 5 mg PO DAILY [facility]; Protocol Last Admin: 07/17/23 07:33 Dose: Not Given Documented By: YVES Non-Admin Reason: NPO Bictegravir/Emtricitabine/Tenofovir (Bictegrav/Emtricit/Tenofov Ala Tablet) 1 tab PO DAILY [facility] Last Admin: 07/17/23 07:34 Dose: Not Given Documented By: YVES Non-Admin Reason: NPO Brimonidine Tartrate (Brimonidine Tartrate 0.2% Oph 5 Ml Bottle) 1 drop EYE- BOTH BID [facility] Last Admin: 07/16/23 20:33 Dose: 1 drop Documented By: SAMREEN Calcium Carbonate/Cholecalciferol (Calcium + Vitamin D 250 Mg Tablet) 500 mg PO BID [facility] Last Admin: 07/17/23 07:34 Dose: Not Given Documented By: YVES Non-Admin Reason: NPO Clonazepam (Clonazepam 1 Mg Tablet) 1 mg PO DAILY [facility] Last Admin: 07/17/23 07:34 Dose: Not Given Documented By: YVES Non-Admin Reason: NPO Diphenhydramine HCl (Diphenhydramine Hcl 25 Mg Capsule) 50 mg PO BEDTIME [facility] Last Admin: 07/16/23 18:07 Dose: Not Given Documented By: SAMREEN Non-Admin Reason: NPO Enoxaparin Sodium (Enoxaparin Sodium 40 Mg/0.4 Ml Syringe) 40 mg SUBCUT Q24H [facility] Last Admin: 07/16/23 15:25 Dose: 40 mg Documented By: LEON Ferrous Sulfate (Ferrous Sulfate 324 Mg Tablet.Dr) 324 mg PO DAILY [facility] Last Admin: 07/17/23 07:34 Dose: Not Given Documented By: YVES Non-Admin Reason: NPO Fluticasone/Vilanterol (Fluticasone/Vilanterol 200/25 Blst.W.Dev) 1 puff INHALE RDAILY [facility] Last Admin: 07/17/23 08:33 Dose: 1 puff Documented By: NEFTALY Gabapentin (Gabapentin 600 Mg Tablet) 600 mg PO TID [facility] Last Admin: 07/17/23 07:35 Dose: Not Given Documented By: YVES Non-Admin Reason: NPO Guaifenesin (Guaifenesin 100 Mg/5 Ml Liquid) 10 ml PO TID PRN PRN Reason: Cough Last Admin: 07/15/23 19:28 Dose: 10 ml Documented By: JUAN Dextrose/Sodium Chloride (D51/2ns) 1,000 mls @ 100 mls/hr IVCONT .Q10H [facility] Last Admin: 07/17/23 01:16 Dose: 100 mls/hr Documented By: CLAUDIO Fluconazole (Diflucan) 200 mg in 100 mls @ 100 mls/hr IV Q24H [facility] Latanoprost (Latanoprost 0.005 % Ophth Carol 2.5 Ml Drops) 1 drop EYE-BOTH BEDTIME [facility] Last Admin: 07/16/23 20:33 Dose: 1 drop Documented By: SAMREEN Melatonin (Melatonin 3 Mg Tablet) 6 mg PO BEDTIME PRN PRN Reason: Insomnia Mirtazapine (Mirtazapine 30 Mg Tablet) 60 mg PO BEDTIME [facility] Last Admin: 07/16/23 18:07 Dose: Not Given Documented By: SAMREEN Non-Admin Reason: NPO Morphine Sulfate (Morphine Sulfate 2 Mg/Ml Cartridge) 2 mg IVPUSH Q6H PRN; Protocol PRN Reason: Nausea and Vomiting Last Admin: 07/17/23 02:43 Dose: 2 mg Documented By: CLAUDIO Risperidone (Risperidone 3 Mg Tablet) 3 mg PO BEDTIME [facility] Last Admin: 07/16/23 18:07 Dose: Not Given Documented By: SAMREEN Non-Admin Reason: NPO Sodium Chloride (0.9 % Sodium Chloride Flush 3 Ml Syringe) 3 ml IVFLUSH QSHIFT [facility] Last Admin: 07/17/23 08:04 Dose: 3 ml Documented By: YVES Timolol Maleate (Timolol Maleate 0.5 % Oph Carol 5 Ml Drbtl) 1 drop EYE-BOTH BID [facility] Last Admin: 07/16/23 20:33 Dose: 1 drop Documented By: SAMREEN Labs 07/15/23 10:26 07/15/23 09:51 Microbiology Microbiology Results: Microbiology 07/15/23 09:51 Blood Culture - Preliminary Blood - Venous No growth after 24 hours. 07/15/23 09:43 Blood Culture - Preliminary Blood - Venous No growth after 24 hours. Assessment and Plan (1) Dysphagia: Status: Acute (2) Weakness: Status: Acute Plan 58 yo M with HIV [viral load undetectable 06/02/23, CD4 377 11/29/22, mild persistent asthma, history HCV, and history empyema of the lung here with dysphagia and chest pain related to rib fractures Dysphagia etiology unclear but concern for fungal esophagitis NPO, empric IV diflucan. For EGD today HIV - CD4 377 11/29/22, RNA undetectable 06/02/23; -continue Biktarvy when able to take PO Chest pain d/t rib fracture--pain meds PRN HTN--not able to take meds at this time, if needed would give IV meds Admission to last at least 2 midnights for Dysphagia work up and need to feed Moderate protein calorie malnutrition--Supplement when able to take PO Full code DVT--Lovenox need for inpatient: at least 2 midnights for management of dysphagia, odynophagia not able to eat or take meds, on IVF and meds Quality Stroke Does the patient have a stroke diagnosis?: No VTE Prior VTE?: No VTE Risk Level:: Medical - low VTE Device Contraindication: Treatment Not Indicated VTE Drug Contraindication: N/A - Med Ordered
--- NOTE | 2023-07-17 09:46 | MHC.CM.PN ---
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 PT VERIFIES PCP/HCP ON FILE IS CORRECT, MODERNA X4/PFIZER X2.
[2023-07-17] MEDS: timoloL maleate 0.5 % Oph Sol 5 ML DRBTL 1 DROP EYE-BOTH ×2 (11:11→21:22)
[2023-07-17] MEDS: Brimonidine Tartrate 0.2% Oph 5 ML BOTTLE 1 DROP EYE-BOTH ×2 (11:12→21:23)
--- NOTE | 2023-07-17 11:36 | PC.NURSE ---
Patient arrived to preop with 2 IVs in. #22 left AC, #22 right thumb. Both sites asymptomatic and flushed with no problems.
--- NOTE | 2023-07-17 11:48 | HO.ANESPROP2 ---
HPI - Anesthesia Eval Consult details Narrative: for EGD bec of dysphagia PMFSH Active Problems Active Problems: All Active Problems (Updated 07/15/23 @ 16:39 by Carmen Antonio CNP) Dysphagia (Acute) Weakness (Acute) Multiple rib fractures (Acute) Empyema lung (Acute) Hepatitis C (Acute) Loculated pleural effusion (Acute) Pneumonia (Acute) Fx shaft fibula-closed (Acute) Fracture of tibial shaft, closed (Acute) Mild persistent asthma with (acute) exacerbation (Acute) Atypical pneumonia (Acute) Asthma with exacerbation (Acute) Abscess of lung (Acute) Abscess of left lung with pneumonia (Acute) Abscess of lower lobe of right lung with pneumonia (Acute) Lung abscess (Acute) Shingles (Acute) Past Medical History Medical History History of empyema of pleura (01/05/23) Hypertension Closed fracture of leg Hepatitis C Kidney stones Pleuritic chest pain Pneumonia Substance abuse Hemorrhoids Depression HIV (human immunodeficiency virus infection) Asthma Family History Family history of problems with anesthesia: No Surgical History Surgical History H/O hemorrhoidectomy History of Problems with Anesthesia: No Social History Social History Household Members: Other Household Members Other:: sister Housing: Apartment Do you presently have visiting nurse or other home services: Yes Alcohol intake: current Alcohol intake frequency: does not drink Patient Tobacco Use Status: Former Tobacco user Tobacco use type: Cigarette Second Hand Smoke Exposure: No Substance Use Type: Crack/Cocaine Advance Directives Date on File: 04/25/21 service: No Current occupational status: disabled Meds Allergies Allergy/AdvReac Type Severity Reaction Status Date / Time Seasonal Allergies Allergy Intermediate Eye Verified 07/17/23 11:29 Drainage codeine Allergy Mild Rash Verified 07/17/23 11:29 [From Tylenol-Codeine #3] levofloxacin [From Levaquin] Allergy Mild Rash Verified 07/17/23 11:29 metoclopramide [From Reglan] Allergy Mild Rash Verified 07/17/23 11:29 acetaminophen Allergy Unknown Unknown Verified 07/17/23 11:29 [Tylenol-Codeine #3] Penicillins [PENICILLINS] Allergy Unknown Rash Verified 07/17/23 11:29 tramadol [From Ultram] AdvReac Mild Nausea and Verified 07/17/23 11:29 Vomiting ibuprofen [From Motrin] AdvReac Unknown Reflux Verified 07/17/23 11:29 Active Medications: Current Medications Albuterol Sulfate (Albuterol Sulfate 90 Mcg 8 Gm Inhaler) 2 puff INHALE Q6H PRN PRN Reason: wheezing Last Admin: 07/15/23 20:17 Dose: 2 puff Amlodipine Besylate (Amlodipine Besylate 5 Mg Tablet) 5 mg PO DAILY [facility]; Protocol Last Admin: 07/17/23 07:33 Dose: Not Given Bictegravir/Emtricitabine/Tenofovir (Bictegrav/Emtricit/Tenofov Ala Tablet) 1 tab PO DAILY [facility] Last Admin: 07/17/23 07:34 Dose: Not Given Brimonidine Tartrate (Brimonidine Tartrate 0.2% Oph 5 Ml Bottle) 1 drop EYE-BOTH BID [facility] Last Admin: 07/17/23 11:12 Dose: 1 drop Calcium Carbonate/Cholecalciferol (Calcium + Vitamin D 250 Mg Tablet) 500 mg PO BID [facility] Last Admin: 07/17/23 07:34 Dose: Not Given Clonazepam (Clonazepam 1 Mg Tablet) 1 mg PO DAILY [facility] Last Admin: 07/17/23 07:34 Dose: Not Given Diphenhydramine HCl (Diphenhydramine Hcl 25 Mg Capsule) 50 mg PO BEDTIME [facility] Last Admin: 07/16/23 18:07 Dose: Not Given Enoxaparin Sodium (Enoxaparin Sodium 40 Mg/0.4 Ml Syringe) 40 mg SUBCUT Q24H [facility] Last Admin: 07/16/23 15:25 Dose: 40 mg Ferrous Sulfate (Ferrous Sulfate 324 Mg Tablet.Dr) 324 mg PO DAILY [facility] Last Admin: 07/17/23 07:34 Dose: Not Given Fluticasone/Vilanterol (Fluticasone/Vilanterol 200/25 Blst.W.Dev) 1 puff INHALE RDAILY [facility] Last Admin: 07/17/23 08:33 Dose: 1 puff Gabapentin (Gabapentin 600 Mg Tablet) 600 mg PO TID [facility] Last Admin: 07/17/23 07:35 Dose: Not Given Guaifenesin (Guaifenesin 100 Mg/5 Ml Liquid) 10 ml PO TID PRN PRN Reason: Cough Last Admin: 07/15/23 19:28 Dose: 10 ml Dextrose/Sodium Chloride (D51/2ns) 1,000 mls @ 100 mls/hr IVCONT .Q10H [facility] Last Infusion: 07/17/23 11:38 Dose: Infused Fluconazole (Diflucan) 200 mg in 100 mls @ 100 mls/hr IV Q24H [facility] Latanoprost (Latanoprost 0.005 % Ophth Carol 2.5 Ml Drops) 1 drop EYE-BOTH BEDTIME [facility] Last Admin: 07/16/23 20:33 Dose: 1 drop Melatonin (Melatonin 3 Mg Tablet) 6 mg PO BEDTIME PRN PRN Reason: Insomnia Mirtazapine (Mirtazapine 30 Mg Tablet) 60 mg PO BEDTIME [facility] Last Admin: 07/16/23 18:07 Dose: Not Given Morphine Sulfate (Morphine Sulfate 2 Mg/Ml Cartridge) 2 mg IVPUSH Q6H PRN; Protocol PRN Reason: Nausea and Vomiting Last Admin: 07/17/23 11:04 Dose: 2 mg Risperidone (Risperidone 3 Mg Tablet) 3 mg PO BEDTIME [facility] Last Admin: 07/16/23 18:07 Dose: Not Given Sodium Chloride (0.9 % Sodium Chloride Flush 3 Ml Syringe) 3 ml IVFLUSH QSHIFT [facility] Last Admin: 07/17/23 08:04 Dose: 3 ml Timolol Maleate (Timolol Maleate 0.5 % Oph Carol 5 Ml Drbtl) 1 drop EYE-BOTH BID [facility] Last Admin: 07/17/23 11:11 Dose: 1 drop Home Medications Medication Instructions Recorded Confirmed Last Taken Type amlodipine 5 mg tablet 5 mg PO DAILY 12/30/22 07/15/23 07/14/23 History bictegravir 50 mg-emtricitabine 1 tab PO DAILY 12/30/22 07/15/23 07/14/23 History 200 mg-tenofovir alafenam 25 mg tablet (Biktarvy) clonazepam 1 mg tablet 1 mg PO DAILY 12/30/22 07/15/23 07/14/23 History gabapentin 600 mg tablet 600 mg PO TID 12/30/22 07/15/23 07/14/23 History latanoprost 0.005 % eye drops 1 drp ophthalmic (eye) DAILY 12/30/22 07/15/23 07/14/23 History mirtazapine 30 mg tablet 60 mg PO BEDTIME 12/30/22 07/15/23 07/14/23 History tramadol 50 mg tablet 50 mg PO DAILY PRN Pain 12/30/22 07/15/23 Unknown History albuterol sulfate 90 mcg/actuation 2 puff inhalation Q6H PRN wheezing 02/12/23 07/15/23 Unknown History aerosol inhaler ferrous gluconate 324 mg (38 mg 324 mg PO DAILY 02/12/23 07/15/23 07/14/23 History iron) tablet brimonidine 0.2 %-timolol 0.5 % 1 drp ophthalmic (eye) BID 06/01/23 07/15/23 07/14/23 History eye drops fluticasone propionate 230 2 puff inhalation BID 06/01/23 07/15/23 07/14/23 History mcg-salmeterol 21 mcg/actuation HFA inhaler (Advair HFA) risperidone 3 mg tablet 3 mg PO BEDTIME 06/01/23 07/15/23 07/14/23 History calcium carbonate 600 mg-vitamin 1 tab PO BID 06/24/23 07/15/23 07/14/23 History D3 10 mcg (400 unit) tablet (Calcium 600 + D(3)) diphenhydramine HCl 25 mg tablet 50 mg PO BEDTIME 07/15/23 07/15/23 07/14/23 History (Banophen) guaifenesin 100 mg/5 mL oral 200 mg PO TID PRN Cough 07/15/23 07/15/23 Unknown History liquid (Chest Congestion Relief) Exam Exam Date and Time: July 17, 2023 1148 Height,Weight and Vital Signs: Height 5 ft 5 in Weight 51.1 kg Last Vital Signs Temp 98.5 F 07/17/23 11:30 Pulse 56 07/17/23 11:30 Resp 16 07/17/23 11:30 BP 125/73 07/17/23 11:30 Pulse Ox 96 07/17/23 11:30 O2 Del Method Room Air 07/17/23 11:30 Pertinent Lab Results Pertinent Lab Results: Laboratory Tests 07/15/23 07/15/23 07/15/23 09:43 09:51 09:52 WBC RBC Hgb Hct MCV MCH MCHC RDW Plt Count MPV Immature Gran % (Auto) Neut % (Auto) Lymph % (Auto) [place] % (Auto) Eos % (Auto) Baso % (Auto) Lymph # (Auto) [place] # (Auto) Eos # (Auto) Baso # (Auto) Abs Immat Gran (auto) Absolute Neuts (auto) Absolute Nucleated RBC Nucleated RBC % (auto) Sodium 141 Potassium 4.1 Chloride 107 Carbon Dioxide 25 Anion Gap 13 BUN 11 Creatinine 0.95 Estim Creat Clear Calc 60.5 Estimated GFR > 60 Random Glucose 88 Lactic Acid 3.1 H* Lactic Acid F/U @ 2Hr Calcium 10.0 D Total Bilirubin 0.5 AST 32 ALT 46 H Alkaline Phosphatase 65 Troponin I High Sens < 2.7 D Total Protein 8.5 H Albumin 4.6 Lipase 10 Urine Color Urine Appearance Urine pH Ur Specific [place] Urine Protein Urine Glucose (UA) Urine Ketones Urine Blood Urine Nitrite Ur Leukocyte Esterase Urine Opiates Screen Urine Fentanyl Screen Ur Barbiturates Screen Ur Phencyclidine Scrn Ur Amphetamines Screen U Benzodiazepines Scrn Urine Cocaine Screen U Marijuana (THC) Screen Ethyl Alcohol < 10 COVID-19 (TAMMIE) Negative COVID-19 Clin Com See Note Influenza Type A (KEVON) Negative Influenza Type B (KEVON) Negative Influenza A & B Note See Note 07/15/23 07/15/23 10:26 11:56 WBC 3.3 L RBC 4.16 L Hgb 12.6 L Hct 38.7 L MCV 93.0 MCH 30.3 MCHC 32.6 RDW 15.3 Plt Count 274 D MPV 11.4 Immature Gran % (Auto) 0.0 Neut % (Auto) 48.2 Lymph % (Auto) 31.1 [place] % (Auto) 18.0 H Eos % (Auto) 2.1 Baso % (Auto) 0.6 Lymph # (Auto) 1.0 L [place] # (Auto) 0.6 Eos # (Auto) 0.1 Baso # (Auto) 0.0 Abs Immat Gran (auto) 0.00 Absolute Neuts (auto) 1.6 L Absolute Nucleated RBC 0.000 Nucleated RBC % (auto) 0.0 Sodium Potassium Chloride Carbon Dioxide Anion Gap BUN Creatinine Estim Creat Clear Calc Estimated GFR Random Glucose Lactic Acid Lactic Acid F/U @ 2Hr 1.3 Calcium Total Bilirubin AST ALT Alkaline Phosphatase Troponin I High Sens Total Protein Albumin Lipase Urine Color Yellow Urine Appearance Clear Urine pH 8.0 Ur Specific [place] >= 1.030 H Urine Protein Negative Urine Glucose (UA) Negative Urine Ketones Negative Urine Blood Negative Urine Nitrite Negative Ur Leukocyte Esterase Negative Urine Opiates Screen Not Detected Urine Fentanyl Screen POSITIVE H Ur Barbiturates Screen Not Detected Ur Phencyclidine Scrn Not Detected Ur Amphetamines Screen Not Detected U Benzodiazepines Scrn Not Detected Urine Cocaine Screen Not Detected U Marijuana (THC) Screen Not Detected Ethyl Alcohol COVID-19 (TAMMIE) COVID-19 Clin Com Influenza Type A (KEVON) Influenza Type B (KEVON) Influenza A & B Note Airway Mallampati Class: II TM Dist: >3cm Neck ROM: Full Heart: OK Lungs: OK Assessment and Plan Assessment Anesthesia Assessment: Anesthesia Plan Discussed and Chart Reviewed Final Anesthetic Review Family History of Problems with Anesthesia: No History of Problems with Anesthesia: No NPO: Yes ASA Class: IV Final Preanesthetic Review: No Changes in Pt Med Stat, Meds/Allgs Chart Reviewed, Consent Obtained/Reviewed and Anes Risks/Benef Reviewed Patient Risk: High Procedure Risk: Intermediate Anesthetic Plan Anesthetic Plan: MAC: and Agree w/ Assess. and Plan Disposition: Standard PACU
--- NOTE | 2023-07-17 12:12 | PM.EVENT ---
Event Note Date of Service: 07/17/23 Event Note: EGD dictated no stricture few whitish spots in upper esophagus, c/w mild candidiasis normal stomach and duodenum biopsies taken Rec: F/U bx results speech path followup. Time Spent With Patient Time: Total time managing care of this patient today ____ minutes.
--- NOTE | 2023-07-17 12:15 | PM.OP ---
Brief Operative Note Date of Service: 07/17/23 Pre-op diagnosis: dysphagia Post-op diagnosis: same Procedure: egd Surgeon: Jason Dodson MD Anesthesia: MAC Was an Sugar Chipper Machine Operator used for this Procedure?: No Estimated blood loss (mL): 2 Pathology: other Condition: stable Disposition: PACU
--- NOTE | 2023-07-17 12:23 | MHC.SL.DTX ---
Dysphagia Diet modifications: Last documented Solid diet consistencies: NPO Last documented Liquid consistency: NPO Last documented Medication Administration: Changes made to current diet?: Yes Liquid Consistency and Strategies: Liquid Intake Recommendation: Rumsey Thick Compensatory Strategies for Safe Swallow: Small Sips No Straws Compensatory Strategies for Safe Swallow(b): Sitting Upright (90 deg) No Straw Small Bites and Sips Rate of Ingestion Change Oral Check Solid Food Consistency: Dietary Recommendations: Pureed (NDD1) Additional Modifications to Solids: Oral Medication Intake: NPO Strategies and Precautions to be Taken for Safe Swallow: Sitting Upright (90 deg) No Straw Small Bites and Sips Rate of Ingestion Change Oral Check Supervision While Eating and/Drinking: Total Assistance (1:1) Foods to Avoid: Avoid difficult to chew solids. Swallowing Recommended Treatments: Gustatory Stimulation Compens. Strategy Educat. Level of Impact on: Daily activities: None Interpersonal interactions: Education: Employment: Community: None Prognosis for Improvement: Good Recommendation for Speech: Inpatient Speech Therapy Comment: Frequency/Duration: Date Range for Service Req: Timeline to reassess: Additional Comments: Treatment: Pt awake with his eyes open in his recliner on initial approach. He is not answering question verbally. He gestures to his mouth when offered PO and makes eye contact. Pt tolerated Thin Liquids via Moistened swab and Ice Chips. He tolerated Rumsey-Thick Liquids via spoon and administered cup sip with no overt s/s of aspiration. He tolerated Puree Solids with mild oral residue. He left unchewed pieces of Ground/Mech solids in his mouth and did not spit them out or attempt to clear when prompted. He remained with open mouth posture for an extended period of time suspicious for absence seizure. RN notified and suctioning requested. SECURITY PROJECT MANAGER removed pieces from buccal folds and underbody of the tongue. No further advanced trials attempted due to Pt altered mental status and reduced safety awareness. Assessment: Box Office Manager Clinican/Clinical Fellow: No Supervisory Statement: I have reviewed and agree with the student/clinical fellow's documentation: N/A Speech Language Pathologist: Robby Blanton M.A., [facility]-SECURITY PROJECT MANAGER
--- NOTE | 2023-07-17 13:07 | OP_ITS ---
DATE OF SERVICE: 07/17/2023 SURGEON: Jason Dodson MD INDICATIONS: Dysphagia. PREOPERATIVE DIAGNOSIS: POSTOPERATIVE DIAGNOSIS: PROCEDURE PERFORMED: Upper endoscopy with biopsy. ESTIMATED BLOOD LOSS: COMPLICATIONS: ANESTHESIA: Monitored anesthesia care. ASSISTANTS: SPECIMENS: DESCRIPTION OF PROCEDURE: A history and physical were performed. The risks and benefits of the procedure were explained to the patient, and informed consent was obtained. The patient was placed in the left lateral decubitus position. The Olympus video gastroscope was introduced into the esophagus, stomach, and duodenum. Examination was performed. The scope was removed. He tolerated the procedure well and was returned to the recovery area in stable condition. FINDINGS: Esophagus: There were a few whitish spots in the upper esophagus suggestive of very minimal Yulia esophagitis. Biopsies were obtained from the upper esophagus and from the EG junction. There was no stricture identified. The scope easily passed through the upper esophageal sphincter and lower esophageal sphincter. Stomach: The stomach was normal. Antral biopsies were obtained. Duodenum: The bulb and second portion were normal. IMPRESSION: 1. Dysphagia. 2. Minimal changes suggestive of mild esophageal candidiasis. RECOMMENDATION: 1. Follow up the biopsy results. 2. Continue present therapy with Diflucan. 3. Speech pathology followup for further evaluation. MD VICKIE Lozano/PJL / [id number] MTDD
[2023-07-17] MEDS: Fluconazole in NaCl,Iso-Osm 200 MG/100 ML PIGGYBACK 100 MG IV (13:11)
[2023-07-17] MEDS: Enoxaparin Sodium 40 MG/0.4 ML SYRINGE SUBCUT (15:32)
--- NOTE | 2023-07-17 18:43 | CONS_ITS ---
DATE OF SERVICE: 07/17/2023 REFERRING PHYSICIAN: Gregg Whitaker MD REASON FOR CONSULTATION: Dysphagia. HISTORY OF PRESENT ILLNESS: The patient is a 58-year-old man, who was admitted to the hospital on 07/16 after presenting to the emergency room with weakness and chest pain, as well as difficulty swallowing. He reports about 6 months of difficulty swallowing. He has lost about 22 pounds in this time by his report. He has no history of chronic reflux and has not undergone upper endoscopy. He was evaluated by speech pathology in the emergency department because of swallowing problems and was changed to n.p.o. due to his swallowing problems. Today, he was seen in followup with recommendations to resume a pureed diet, and continue treatment. PAST MEDICAL HISTORY: 1. HIV infection, on HAART. 2. Hepatitis C. 3. Asthma. 4. Empyema. 5. Nephrolithiasis. 6. Rib fractures. 7. Hemorrhoids. 8. Depression. 9. Pneumonia. CURRENT MEDICATIONS: Current medication list is reviewed in the chart. ALLERGIES: MULTIPLE MEDICATION ALLERGIES ARE REVIEWED. FAMILY HISTORY: Reviewed in the chart SOCIAL HISTORY: Reviewed in the chart. He does have a history of substance abuse and tested positive for fentanyl on this admission. REVIEW OF SYSTEMS: This is not reliably obtainable due to the patient's mental status. PHYSICAL EXAMINATION: GENERAL: Shows a male who was slow to respond. VITAL SIGNS: Reviewed in electronic medical record and are stable. SKIN: Anicteric. HEENT: Shows no scleral icterus. NECK: Without lymphadenopathy or thyromegaly. LUNGS: Clear. HEART: Shows regular rate and rhythm. S1, S2. No murmur. ABDOMEN: Soft. No focal mass or tenderness. Bowel sounds are present. No organomegaly is noted. EXTREMITIES: Without edema. LABORATORY DATA AND IMAGING STUDIES: Reviewed. IMPRESSION: Dysphagia. Some of his symptoms of dysphagia may be related to his underlying mental status. It is not clear what his baseline is. I did discuss endoscopy with him to rule out any obstructive process such as stricturing of the upper esophageal or lower esophageal sphincters, as well as underlying Yulia esophagitis, for which he is being empirically treated for. I discussed risks and benefits of the procedure with him. He understands these and agrees to proceed. Thanks for asking me to see him. I will follow him in the hospital with you. MD VICKIE Lozano/DEVORA CORTEZ: 07/17/2023 14:12:20 / [id number] [email or web address]
[2023-07-17] MEDS: Latanoprost 0.005 % Ophth Sol 2.5 ML DROPS 1 DROP EYE-BOTH (21:22)
[2023-07-18 03:48] VITALS: BP 130/81; PULSE 55; RESP 18; TEMP 36.3; O2SAT 95
[2023-07-18] MEDS: Dextrose 5 % and 0.45 % NaCl 1,000 ML 100 ML IVCONT (06:24)
[2023-07-18] MEDS: Fluticasone/Vilanterol 200/25 BLST.W.DEV 1 PUFF INHALE (07:27)
[2023-07-18 07:30] VITALS: PULSE 58; RESP 16; O2SAT 96
[2023-07-18 07:41] VITALS: BP 126/67; PULSE 54; RESP 16; TEMP 36.4; O2SAT 94
[2023-07-18] MEDS: Fluconazole in NaCl,Iso-Osm 200 MG/100 ML PIGGYBACK 100 MG IV (08:36)
[2023-07-18] MEDS: Brimonidine Tartrate 0.2% Oph 5 ML BOTTLE 1 DROP EYE-BOTH ×2 (08:41→20:33)
[2023-07-18] MEDS: timoloL maleate 0.5 % Oph Sol 5 ML DRBTL 1 DROP EYE-BOTH ×2 (08:41→20:32)
--- NOTE | 2023-07-18 11:31 | HO.PM.IMPN ---
Subjective Subjective Date of Service: 07/18/23 Interval History: f/u on dysphagia and odynophagia interval history:tolerating present diet, egd show finding of sandy Physical Exam Vital Signs: Vital Signs: Last Vital Signs Temp 97.6 F 07/18/23 07:41 Pulse 54 07/18/23 07:41 Resp 16 07/18/23 07:41 BP 126/67 07/18/23 07:41 Pulse Ox 94 07/18/23 07:41 O2 Del Method Room Air 07/18/23 07:41 BMI result Body Mass Index 18.7 Const: Other: General: AO X 3, no acute distress Resp: CTA bilateral Heent no mouth sores CVS: S1,S2,RRR GI: +BS, NT, no distention Skin: No rash Neuro: motor grossly intact Psych: appropriate affect Objective Data Active Medications Albuterol Sulfate (Albuterol Sulfate 90 Mcg 8 Gm Inhaler) 2 puff INHALE Q6H PRN PRN Reason: wheezing Last Admin: 07/15/23 20:17 Dose: 2 puff Documented By: DONNELL Amlodipine Besylate (Amlodipine Besylate 5 Mg Tablet) 5 mg PO DAILY [facility]; Protocol Last Admin: 07/18/23 07:13 Dose: Not Given Documented By: BART Non-Admin Reason: NPO Bictegravir/Emtricitabine/Tenofovir (Bictegrav/Emtricit/Tenofov Ala Tablet) 1 tab PO DAILY [facility] Last Admin: 07/18/23 07:13 Dose: Not Given Documented By: BART Non-Admin Reason: NPO Brimonidine Tartrate (Brimonidine Tartrate 0.2% Oph 5 Ml Bottle) 1 drop EYE-BOTH BID [facility] Last Admin: 07/18/23 08:41 Dose: 1 drop Documented By: BART Calcium Carbonate/Cholecalciferol (Calcium + Vitamin D 250 Mg Tablet) 500 mg PO BID [facility] Last Admin: 07/18/23 07:13 Dose: Not Given Documented By: BART Non-Admin Reason: NPO Clonazepam (Clonazepam 1 Mg Tablet) 1 mg PO DAILY [facility] Last Admin: 07/18/23 07:13 Dose: Not Given Documented By: BART Non-Admin Reason: NPO Diphenhydramine HCl (Diphenhydramine Hcl 25 Mg Capsule) 50 mg PO BEDTIME [facility] Last Admin: 07/17/23 21:26 Dose: Not Given Documented By: SONJA Non-Admin Reason: NPO Enoxaparin Sodium (Enoxaparin Sodium 40 Mg/0.4 Ml Syringe) 40 mg SUBCUT Q24H [facility] Last Admin: 07/17/23 15:32 Dose: 40 mg Documented By: YVES Ferrous Sulfate (Ferrous Sulfate 324 Mg Tablet.Dr) 324 mg PO DAILY [facility] Last Admin: 07/18/23 07:14 Dose: Not Given Documented By: BART Non-Admin Reason: NPO Fluticasone/Vilanterol (Fluticasone/Vilanterol 200/25 Blst.W.Dev) 1 puff INHALE RDAILY [facility] Last Admin: 07/18/23 07:27 Dose: 1 puff Documented By: MARIANNE Gabapentin (Gabapentin 600 Mg Tablet) 600 mg PO TID [facility] Last Admin: 07/18/23 07:14 Dose: Not Given Documented By: BART Non-Admin Reason: NPO Guaifenesin (Guaifenesin 100 Mg/5 Ml Liquid) 10 ml PO TID PRN PRN Reason: Cough Last Admin: 07/15/23 19:28 Dose: 10 ml Documented By: JUAN Dextrose/Sodium Chloride (D51/2ns) 1,000 mls @ 100 mls/hr IVCONT .Q10H [facility] Last Admin: 07/18/23 06:24 Dose: 100 mls/hr Documented By: SONJA Fluconazole (Diflucan) 200 mg in 100 mls @ 100 mls/hr IV Q24H [facility] Last Infusion: 07/18/23 09:47 Dose: Infused Documented By: BART Latanoprost (Latanoprost 0.005 % Ophth Carol 2.5 Ml Drops) 1 drop EYE-BOTH BEDTIME [facility] Last Admin: 07/17/23 21:22 Dose: 1 drop Documented By: SONJA Melatonin (Melatonin 3 Mg Tablet) 6 mg PO BEDTIME PRN PRN Reason: Insomnia Mirtazapine (Mirtazapine 30 Mg Tablet) 60 mg PO BEDTIME [facility] Last Admin: 07/17/23 21:27 Dose: Not Given Documented By: SONJA Non-Admin Reason: NPO Morphine Sulfate (Morphine Sulfate 2 Mg/Ml Cartridge) 2 mg IVPUSH Q6H PRN; Protocol PRN Reason: Nausea and Vomiting Last Admin: 07/17/23 18:36 Dose: 2 mg Documented By: YVES Risperidone (Risperidone 3 Mg Tablet) 3 mg PO BEDTIME [facility] Last Admin: 07/17/23 21:27 Dose: Not Given Documented By: SONJA Non-Admin Reason: NPO Sodium Chloride (0.9 % Sodium Chloride Flush 3 Ml Syringe) 3 ml IVFLUSH QSHIFT [facility] Last Admin: 07/18/23 07:11 Dose: Not Given Documented By: BART Non-Admin Reason: IV Running Timolol Maleate (Timolol Maleate 0.5 % Oph Carol 5 Ml Drbtl) 1 drop EYE-BOTH BID [facility] Last Admin: 07/18/23 08:41 Dose: 1 drop Documented By: BART Labs 07/15/23 10:26 07/15/23 09:51 Microbiology Microbiology Results: Microbiology 07/15/23 09:51 Blood Culture - Preliminary Blood - Venous No growth after 48 hours. 07/15/23 09:43 Blood Culture - Preliminary Blood - Venous No growth after 48 hours. Assessment and Plan (1) Dysphagia: Status: Acute (2) Weakness: Status: Acute Plan 58 yo M with HIV [viral load undetectable 06/02/23, CD4 377 11/29/22, mild persistent asthma, history HCV, and history empyema of the lung here with dysphagia and chest pain related to rib fractures Dysphagia etiology, EGD 07/17 few whitish spots in upper esophagus, c/w mild candidiasis normal stomach and duodenum continuec IV diflucan. For EGD today Diet started per speech recommendation HIV - CD4 377 11/29/22, RNA undetectable 06/02/23; -continue Biktary Chest pain d/t rib fracture--pain meds PRN HTN--not able to take meds at this time, if needed would give IV meds Admission to last at least 2 midnights for Dysphagia work up and need to feed Moderate protein calorie malnutrition--Supplement when able to take PO Full code DVT--Lovenox need for inpatient: at least 2 midnights for management of dysphagia, odynophagia not able to eat or take meds, on IVF and meds PT eval for possible placement Quality Stroke Does the patient have a stroke diagnosis?: No VTE Prior VTE?: No VTE Risk Level:: Medical - low VTE Device Contraindication: Treatment Not Indicated VTE Drug Contraindication: N/A - Med Ordered
--- NOTE | 2023-07-18 12:45 | MHC.SL.SWA ---
Addendum entered and electronically signed by CHANTAL Denny 07/18/23 12:48: Pt also observed to tolerate nectar thick liquids w/ straw. Recommend straw or spoon administration for liquids. Original Note: Speech Pathologist Impression: Risk of Aspiration Oralpharyngeal Dysphagia Risk of Aspiration Due to: Medically Fragile History of Pneumonia Dysphasia Diet Status: No change Liquid Consistency and Strategies for Safe Swallow: Liquid Intake Recommendation: [place] Thick Liquid Intake Strategies: Small Sips No Straws Solid Food Consistency: Dietary Recommendations: Pureed (NDD1) Oral Medication Intake: Crushed with Puree Please contact the pharmacy regarding appropriate crushable or liquid drug formulations that are available whenever modified delivery is recommended. Compensatory Strategies and Precautions to be Taken for Safe Swallow: Sitting Upright (90 deg) Double Swallow Liquids from Spoon Small Bites and Sips Rate of Ingestion Change Oral Check Supervision While Eating and Drinking for Safe Swallow: Total Supervision (1:1) Foods to Avoid: Avoid difficult to chew solids. Swallowing Recommended Treatments: Gustatory Stimulation Compens. Strategy Educat. Recommendation for Speech: Inpatient Speech Therapy Comment: Recommend patient continue w/ Puree Solids (NDD1) and [place]-Thick Liquids. Meds crushed in puree. Pt requires 1:1 supervision at this time d/t altered mental status and reduced safety awareness. Pt able to self feed, however requires cueing to double swallow every few bites. Pt observed to be most successful w/ liquids self administered via teaspoon. PROFESSOR OF RADIOLOGY will continue to follow. Housing Manager Clinican/Clinical Fellow: No Supervisory Statement: I have reviewed and agree with the student/clinical fellow's documentation: N/A Speech Language Pathologist: Mona Hale M.A., CCC-PROFESSOR OF RADIOLOGY
--- NOTE | 2023-07-18 13:49 | MHC.CLN ---
F/U DIET=PUREE CONSISTENCY WITH NECTAR THICK LIQUIDS. ADDING MAGIC CUP TID TO PROMOTE NUTRITIONAL INTAKE. PROVIDES 870 KCALS, 27 G PROTEIN. SKIN WITH NO PRESSURE INJURIES. FOLLOW DIET TOLERANCE AND INTAKE.
--- NOTE | 2023-07-18 14:27 | MHC.CM.PN ---
EMR REVIEWED, PER HOSPITALIST DIET STARTED, ANTIC PT WILL REMAIN INPT 1-2 DAYS, [facility] UPDATED VIA [employer], CM WILL CONT TO FOLLOW DC NEEDS.
[2023-07-18] MEDS: Albuterol Sulfate 90 MCG 8 GM INHALER 2 PUFF INHALE (15:02)
[2023-07-18] MEDS: Enoxaparin Sodium 40 MG/0.4 ML SYRINGE SUBCUT (15:02)
[2023-07-18] MEDS: Gabapentin 600 MG TABLET PO ×2 (15:02→20:33)
[2023-07-18 15:35] VITALS: BP 137/82; PULSE 61; RESP 16; TEMP 36.1; O2SAT 92
--- NOTE | 2023-07-18 15:40 | HO.POSTANES ---
Post Anesthesia Evaluation Post Anesthesia Evaluation Date of Service: 07/18/23 Vital Signs: Vital Signs Temp Pulse Resp BP Pulse Ox O2 Del Method 07/18/23 15:35 96.9 F 61 16 137/82 92 Room Air 07/18/23 07:41 97.6 F 54 16 126/67 94 Room Air 07/18/23 07:30 58 16 07/18/23 03:48 97.3 F 55 18 130/81 95 Room Air Anesthesia: Monitored Mental Status: Awake Pain Control: Satisfactory Nausea/Vomiting: None Hydration: Adequate Anesthesia-Related Issues: No Anes. Related Issues
[2023-07-18 19:01] VITALS: BP 117/77; PULSE 64; RESP 18; TEMP 36; O2SAT 94
[2023-07-18] MEDS: risperiDONE 3 MG TABLET PO (20:33)
[2023-07-18] MEDS: Latanoprost 0.005 % Ophth Sol 2.5 ML DROPS 1 DROP EYE-BOTH (20:33)
[2023-07-18] MEDS: diphenhydrAMINE HCL 25 MG CAPSULE 50 MG PO (20:33)
[2023-07-18] MEDS: Mirtazapine 30 MG TABLET 60 MG PO (20:33)
[2023-07-18] MEDS: Morphine Sulfate 2 MG/ML CARTRIDGE IVPUSH (20:33)
[2023-07-18] MEDS: 0.9 % Sodium Chloride Flush 3 ML SYRINGE IVFLUSH (20:34)
[2023-07-18] MEDS: Calcium + Vitamin D 250 MG TABLET 500 MG PO (20:34)
[2023-07-19 03:50] VITALS: BP 148/88; PULSE 51; RESP 16; TEMP 36; O2SAT 96
[2023-07-19 06:55] VITALS: BP 150/72; PULSE 58; RESP 17; TEMP 36.6; O2SAT 94
[2023-07-19 08:58] VITALS: BP 150/72; PULSE 58; O2SAT 94
[2023-07-19] MEDS: clonazePAM 1 MG TABLET PO (09:32)
[2023-07-19] MEDS: Calcium + Vitamin D 250 MG TABLET 500 MG PO (09:32)
[2023-07-19] MEDS: Fluconazole in NaCl,Iso-Osm 200 MG/100 ML PIGGYBACK 100 MG IV (09:32)
[2023-07-19] MEDS: 0.9 % Sodium Chloride Flush 3 ML SYRINGE IVFLUSH (09:32)
[2023-07-19] MEDS: Ferrous Sulfate 324 MG TABLET.DR PO (09:32)
[2023-07-19] MEDS: amLODIPine Besylate 5 MG TABLET PO (09:32)
[2023-07-19] MEDS: Bictegrav/Emtricit/Tenofov Ala TABLET 1 TAB PO (09:32)
[2023-07-19] MEDS: Gabapentin 600 MG TABLET PO (09:32)
[2023-07-19] MEDS: timoloL maleate 0.5 % Oph Sol 5 ML DRBTL 1 DROP EYE-BOTH (09:33)
[2023-07-19] MEDS: Brimonidine Tartrate 0.2% Oph 5 ML BOTTLE 1 DROP EYE-BOTH (09:33)
[2023-07-19] MEDS: Morphine Sulfate 2 MG/ML CARTRIDGE IVPUSH (09:44)
--- NOTE | 2023-07-19 10:37 | MHC.CM.PN ---
Addendum entered by Suki Webb RN 07/19/23 12:01: PT DISCHARGED, PT'S SISTER/HCP ALISE WILL TRNAPSORT AFTER APPT APPROX 1:30-2PM Original Note: ANTIC PT WILL BE MEDICALLY CLEARED PENDING SPEECH W/RESUMP OF [facility] FOR MEDS AND NEW HOME PT, ANTIC PT'S SISTER WILL TRANSPORT
--- NOTE | 2023-07-19 11:18 | PM.DS ---
DS: Providers Provider Date of Service: 08/23/23 Date of admission: 07/16/23 13:59 Primary care physician: Terese Keenan MD Consults: 07/16/23 14:41 Consult to Gastroenterology Routine Consulting Provider: Jason Dodson Reason for consultation: Dysphagia Has provider been notified: No DS: Diagnosis Discharge Diagnosis (1) Dysphagia: Status: Resolved (2) Weakness: Status: Resolved DS: Summary Hospital Course Hospital Course: Chief Complaint: Trouble swallowing 58yo M with HIV [viral load undetectable 06/02/23, CD4 377 11/29/22, mild persistent asthma, history HCV, and history empyema of the lung. He is presented to the ED with difficulty swallowing that has been ongoing for a while. He is not able to swallow food, or pills. He is also been feeling very weak. He is also complaining of chest pain and CT of the chest show multiple rib fracture of varying ages. Speech did swallow evaluation and he failed hospital course: Patient was admitted due to difficulty swallowing and weakness. He had EGD EGD 07/[address] Hawthorne and had few whitish spots in upper esophagus, c/w mild candidiasis normal stomach and duodenum. Speech did swallow eval with recommendation for NND1 + nectar thick liquid HIV - CD4 377 11/29/22, RNA undetectable 06/02/23; -continue Biktary Chest pain d/t rib fracture--pain meds PRN HTN--not able to take meds at this time, if needed would give IV meds Moderate protein calorie malnutrition--Supplement when able to take PO Time Attestation Discharge coordination time: Greater than 30 minutes Quality: Safe Use of Opioids Does Pt have an Active Cancer Diagnosis on the Problem List?: No Quality: Stroke Does the patient have a stroke diagnosis?: No Physical Exam Vital Signs: Vital Signs: Last Vital Signs Temp 97.8 F 07/19/23 06:55 Pulse 58 07/19/23 08:58 Resp 17 07/19/23 06:55 BP 150/72 H 07/19/23 08:58 Pulse Ox 94 07/19/23 08:58 O2 Del Method Room Air 07/19/23 06:55 BMI result Body Mass Index 18.7 DS: Data Data Completed and Pending Completed studies during hospitalization [Text1]: Pending at discharge 07/17/23 12:06 Surgical [PTH] Routine Procedures Drainage of Left Lung with Drainage Device, Open Approach (12/30/22) Insertion of Endotracheal Airway into Trachea, Via Natural or Artificial Opening (12/30/22) Insertion of Infusion Device into Superior Vena Cava, Percutaneous Approach (12/30/22) Introduction of Vasopressor into Central Vein, Percutaneous Approach (12/30/22) Release Left Lung, Open Approach (12/30/22) Reposition Left Tibia with Internal Fixation Device, Open Approach (02/12/22) Respiratory Ventilation, 24-96 Consecutive Hours (12/30/22) Ultrasonography of Superior Vena Cava, Guidance (12/30/22) Labs on day of discharge: Preliminary micro results at discharge 07/15/23 09:51 Blood Culture - Preliminary Blood - Venous No growth after 48 hours. 07/15/23 09:43 Blood Culture - Preliminary Blood - Venous No growth after 48 hours. Discharge Plan Discharge Anticipated Discharge Date/Time: 07/19/23 11:01 Patient Disposition: Home Health Service Discharge Diagnosis: Dysphagia, weakness, Referrals: [facility] [Outside] - 1 Day (MED MANAGEMENT AND NEW HOME PHYSICAL THERAPY) Terese Rivera MD [Primary Care Provider] - 1 Week Discharge Medications: Continued latanoprost 0.005 % drops 1 drp ophthalmic (eye) DAILY albuterol sulfate 90 mcg/actuation HFA aerosol inhaler 2 puff inhalation Q6H PRN (Reason: wheezing) fluticasone propion-salmeterol [Advair HFA] 230-21 mcg/actuation HFA aerosol inhaler 2 puff inhalation BID brimonidine-timolol 0.2-0.5 % drops 1 drp ophthalmic (eye) BID No Action gabapentin 600 mg tablet 600 mg feeding tube TID Qty: 20 0RF clonazepam 1 mg tablet 1 mg feeding tube DAILY Qty: 10 0RF amlodipine 5 mg tablet 5 mg feeding tube DAILY Qty: 30 0RF tramadol 50 mg tablet 50 mg feeding tube DAILY PRN (Reason: Pain) Qty: 14 0RF risperidone 3 mg tablet 3 mg feeding tube BEDTIME Qty: 30 0RF mirtazapine 30 mg tablet 60 mg feeding tube BEDTIME Qty: 20 0RF diphenhydramine HCl [Banophen] 25 mg tablet 25 mg feeding tube BEDTIME Qty: 20 0RF ferrous gluconate 324 mg (38 mg iron) tablet 324 mg feeding tube DAILY Qty: 14 0RF Rx Instructions: PATIENT STOP TAKING BECAUSE CONSTIPATION . HE IS AWARE HE SHOULD BE TAKING MED . Biktarvy 50-200-25 mg tablet 1 tab PO DAILY Qty: 14 0RF Rx Instructions: Ok to crush and give via feeding tube Discharge Orders: Discharge Order (Routine); Ordered 07/19/23 Ordered By: Gregg Whitaker Diet: Advance to usual diet Activity on Discharge: As tolerated Stand Alone Forms: Patient Portal Discharge page Care Plan Goals: recovery from dysphagia Health Concerns: dysphagia HIV rib fractures thrush Plan of Treatment: take Diflucan as recommended continue taking all your previous medications as before follow-up with your doctor in a week you have declined short-term rehab. Assessment: as above Discharge Date/Time: 07/19/23 17:09
--- NOTE | 2023-07-19 15:28 | MHC.SL.SWA ---
Speech Pathologist Impression: Risk of Aspiration Oralpharyngeal Dysphagia Risk of Aspiration Due to: Medically Fragile History of Pneumonia Dysphasia Diet Status: Recommend patient continue on Puree with [place] thick liquids, pills crushed in puree. Liquid Consistency and Strategies for Safe Swallow: Liquid Intake Recommendation: [place] Thick Liquid Intake Strategies: Small Sips Solid Food Consistency: Dietary Recommendations: Pureed (NDD1) Additional Modifications to Solid Foods: Pt took sip of honey thickened broth and ice chips. Liquid pooling in the floor of pt's mouth and in his cheeks. No initiation of pharyngeal swallow. Pt was unable to manipulate or spit out bolus. Bolus was manually removed by PEST CONTROL SERVICE SALES AGENT w/ oral swabs. Recommend DOWNGRADE to NPO at this time, with frequent oral care for comfort and hygiene. Notified MD, RN, RD via [place] Message. Oral Medication Intake: Crushed with Puree Please contact the pharmacy regarding appropriate crushable or liquid drug formulations that are available whenever modified delivery is recommended. Compensatory Strategies and Precautions to be Taken for Safe Swallow: Sitting Upright (90 deg) Double Swallow Liquids from Straw Liquids from Spoon Small Bites and Sips Rate of Ingestion Change Oral Check Supervision While Eating and Drinking for Safe Swallow: Total Supervision (1:1) Foods to Avoid: Avoid difficult to chew solids. Swallowing Recommended Treatments: Gustatory Stimulation Compens. Strategy Educat. Recommendation for Speech: Inpatient Speech Therapy Comment: Patient was seen at lunch. Patient was seated in chair by bed, with lunch on tray table in front of him. Patient had already eaten 2/3 of purees on tray, was alone in room without supervision. Liquids were untouched at onset, patient was noted to wipe residual of puree from mouth with napkin after swallow. Patient requested of the PEST CONTROL SERVICE SALES AGENT a face cloth to continue this pattern, as napkin was completely soiled, which PEST CONTROL SERVICE SALES AGENT provided. Patient was observed self feeding purees, with mildly slow, disorganized oral phase noted, mild delay of swallow with ample oral residual, which patient either attempted second swallow of or wiped from anterior of mouth. Patient was provided with straws for nectar thick juice and milk on tray, with patient noted to take serial sips of both, with no clinical signs of aspiration when drinking in this way. Patient finished all food on plate, consumed juice and milk using straw, and maintained no clinical signs of aspiration throughout. Patient reported to PEST CONTROL SERVICE SALES AGENT that he was to be discharged later today, although this is not clear in chart. Recommend patient continue on Puree with [place] thick liquids, pills crushed in puree. Frequency/Duration: Date Range for Service Req: Timeline to reassess: Remelt Pan Tank Operator Clinican/Clinical Fellow: No Supervisory Statement: I have reviewed and agree with the student/clinical fellow's documentation: N/A Speech Language Pathologist: Suki Duckworth M.A., CCC-PEST CONTROL SERVICE SALES AGENT
== END 2023-07-19 17:09 | disposition home health service (06) | DRG 369 ==
LOC: HO.ED 16:39 → HO.EDOVER 07-16 14:21 → HO.S3 07-16 14:50
PROVIDERS: Internal Medicine Gastroenterology; Nurse Practitioner Family; Admitting Provider Internal Medicine; Emergency Provider Emergency Medicine; PCP Student in an Organized Health Care Education/Training Program; Visit Provider Internal Medicine
PROC: 0DJ08ZZ Inspection of Upper Intestinal Tract, Via Natural or Artificial Opening Endoscopic (ICD-10-PCS; CPT 43235; principal; 2023-07-17 12:30)
DX: B37.81 Candidal esophagitis (principal); E44.0 Moderate protein-calorie malnutrition; Z68.1 Body mass index [BMI] 19.9 or less, adult; J45.30 Mild persistent asthma, uncomplicated; R07.89 Other chest pain; I10 Essential (primary) hypertension; Z20.822 Contact with and (suspected) exposure to COVID-19; Z21 Asymptomatic human immunodeficiency virus [HIV] infection status; Z86.19 Personal history of other infectious and parasitic diseases; Z87.891 Personal history of nicotine dependence; Z79.51 Long term (current) use of inhaled steroids; Z79.899 Other long term (current) drug therapy
CPT/HCPCS: 71046; 71260; 80053; 80307; 81003; 83605; 83690; 84484; 85025; 87040; 87502; 87635; 88305; 88342; 92526; 93005; 94640; 97116; 97161; 99285; J0696; J1450; J1650; J2270; Q9967

== ENCOUNTER → 2023-07-16 13:59 | Outpatient (BNV) | payer OTHER, SELFPAY | PROVIDERS: Admitting Provider Internal Medicine; Emergency Provider Emergency Medicine; PCP Student in an Organized Health Care Education/Training Program; Visit Provider Internal Medicine | DX: R13.10 Dysphagia, unspecified (principal); R53.1 Weakness | CPT/HCPCS: 99223; 99232; 99233; 99239 ==

== ENCOUNTER 2023-07-20 12:39 | Emergency (ER) | payer OTHER, SELFPAY ==
--- NOTE | 2023-07-20 12:45 | ED_ITS ---
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 He cannot at baseline swallow food or pills. This is not new. He was discharged yesterday. He notes this AM he tried to eat scrambled eggs and couldn't swallow it and then tried the broth from jessika soup and couldn't swallow it. He didn't know anything about nectar thick liquids. He does not want rehab or a feeding tube. He states he came here so he could get help to eat again. He lacks any sort of understanding of what his diet should be. MD complaint: dysphagia Onset (ago): month(s) Location: mouth Radiation: non-radiation Severity: severe Pain Consistency: constant Relieving factors: none Exacerbating factors: eating Associated symptoms: loss of appetite and malaise Treatments prior to arrival: none Related Data Home Medications Medication Instructions Recorded Confirmed amlodipine 5 mg tablet 5 mg PO DAILY 12/30/22 07/15/23 bictegravir 50 mg-emtricitabine 1 tab PO DAILY 12/30/22 07/15/23 200 mg-tenofovir alafenam 25 mg tablet (Biktarvy) clonazepam 1 mg tablet 1 mg PO DAILY 12/30/22 07/15/23 gabapentin 600 mg tablet 600 mg PO TID 12/30/22 07/15/23 latanoprost 0.005 % eye drops 1 drp ophthalmic (eye) DAILY 12/30/22 07/15/23 mirtazapine 30 mg tablet 60 mg PO BEDTIME 12/30/22 07/15/23 tramadol 50 mg tablet 50 mg PO DAILY PRN Pain 12/30/22 07/15/23 albuterol sulfate 90 mcg/actuation 2 puff inhalation Q6H PRN wheezing 02/12/23 07/15/23 aerosol inhaler ferrous gluconate 324 mg (38 mg 324 mg PO DAILY 02/12/23 07/15/23 iron) tablet brimonidine 0.2 %-timolol 0.5 % 1 drp ophthalmic (eye) BID 06/01/23 07/15/23 eye drops fluticasone propionate 230 2 puff inhalation BID 06/01/23 07/15/23 mcg-salmeterol 21 mcg/actuation HFA inhaler (Advair HFA) risperidone 3 mg tablet 3 mg PO BEDTIME 06/01/23 07/15/23 calcium carbonate 600 mg-vitamin 1 tab PO BID 06/24/23 07/15/23 D3 10 mcg (400 unit) tablet (Calcium 600 + D(3)) diphenhydramine HCl 25 mg tablet 50 mg PO BEDTIME 07/15/23 07/15/23 (Banophen) guaifenesin 100 mg/5 mL oral 200 mg PO TID PRN Cough 07/15/23 07/15/23 liquid (Chest Congestion Relief) Previous Rx's Medication Instructions Recorded fluconazole 100 mg tablet 100 mg PO DAILY #7 tabs 07/19/23 (Diflucan) Allergies Allergy/AdvReac Type Severity Reaction Status Date / Time Seasonal Allergies Allergy Intermediate Eye Verified 07/20/23 12:48 Drainage codeine Allergy Mild Rash Verified 07/20/23 12:48 [From Tylenol-Codeine #3] levofloxacin [From Levaquin] Allergy Mild Rash Verified 07/20/23 12:48 metoclopramide [From Reglan] Allergy Mild Rash Verified 07/20/23 12:48 acetaminophen Allergy Unknown Unknown Verified 07/20/23 12:48 [Tylenol-Codeine #3] Penicillins [PENICILLINS] Allergy Unknown Rash Verified 07/20/23 12:48 tramadol [From Ultram] AdvReac Mild Nausea and Verified 07/20/23 12:48 Vomiting ibuprofen [From Motrin] AdvReac Unknown Reflux Verified 07/20/23 12:48 Review of Systems 2 Review of Systems: Constitutional : No Fever, No Chills, pos Fatigue, pos weight loss Cardiovascular : No Chest Pain, No SOB, No Dyspnea on Exertion Respiratory : No Cough, No Sputum Gastrointestinal : No Nausea, No Vomiting, No Diarrhea, No abdominal Pain Genitourinary : No Dysuria, No Urinary Frequency, No Hematuria, Musculoskeletal : No joint pain, No Myalgias, No Joint Swelling Skin : No Skin Lesions, No rash Neuro : No Weakness, No Numbness, No Dizziness, no Headache Psych : No Anxiety/Panic, No Depression All other systems reviewed and are negative [facility] Past Medical History Source: old records reviewed Medical History History of empyema of pleura (01/05/23) Hypertension Closed fracture of leg Hepatitis C Kidney stones Pleuritic chest pain Pneumonia Substance abuse Hemorrhoids Depression HIV (human immunodeficiency virus infection) Asthma Surgical History H/O hemorrhoidectomy Social History Social History Household Members: Other Household Members Other:: sister Housing: Apartment Do you presently have visiting nurse or other home services: Yes Alcohol intake: current Alcohol intake frequency: does not drink Patient Tobacco Use Status: Former Tobacco user Tobacco use type: Cigarette Second Hand Smoke Exposure: No Substance Use Type: Crack/Cocaine Advance Directives: Yes Advance Directives on File: Yes Advance Directives Date on File: 04/25/21 service: No Current occupational status: disabled Physical Exam ED Vital Signs: Vital Signs - 24 hr 07/20/23 12:48 Temperature 97.4 F Pulse Rate 93 Respiratory Rate 18 Blood Pressure 122/91 H Pulse Oximetry 95 Oxygen Delivery Method Room Air BMI result Body Mass Index 18.7 Appearance: Alert. Oriented X3. No acute distress. Frail thin cachectic Eyes: Pupils equal, round and reactive to light. ENT: Pharynx mild dry MM Neck: Normal inspection. Neck supple. CVS: Normal heart rate and rhythm. Pulses normal. Respiratory: No respiratory distress. Breath sounds normal. Abdomen: Soft and nontender. Skin: Skin warm and dry. pale skin color. Normal skin turgor. Extremities: No lower extremity edema. No calf ttp Neuro: Oriented X 3. No motor deficit. No sensory deficit. Course Course Course Narrative: This is an RME: Additional HPI, ROS, PE not included below will be deferred to primary provider. patient is a 58-year-old male who presents emergency department via EMS; he was discharged yesterday from hospital after admit 07/16/23 - 07/19/23 for dysphagia/ odynophagia- EGD revealing candidiasis, received IV diflucan, discharged on oral diflucan, speech recommended diet: NND1 (puree) + nectar thick liquid. He reports he called EMS today as he continues to have difficulty swallowing. he has been taking the oral Diflucan. He has not been following the dietary recommendations, reporting he was not aware he needed to make dietary changes. he states that he attempted to eat scrambled eggs today and had difficulty with that. He reports that he lives alone, does not have anyone who can help him, he does not feel as though he will be capable to puree his own foods, nor does he have the means to purchase pureed food or Thick-it for his liquids. He does not have anyone who was is able to help him. Reevaluation(s) Reevaluation #1: patient wants to go home with VNA and we gave him thicket packets. he does not want anything else that we offered. Medical Decision Making Medical Decision Making MDM Narrative: 58 yo male with PMH of HIV [viral load undetectable 06/02/23, CD4 377 11/29/22, mild persistent asthma, history HCV, and history empyema of the lung, known dysphagia just had EGD on 07/17 with [facility] - white spots upper esophagus mild candidiasis - speech saw patient and recommended NND +1 nectar thick liquid diet - he went home did not eat nectar thick liquids and tried to eat solids. He states he didn't know he had to eat this diet. He does not want rehab or a feeding tube. I am not sure how best to help him at this point. I am going to involve case management. Differential Diagnosis Differential Diagnoses: The differential diagnosis associated with the presentation includes dysphagia, dehydration Admission/Observation Consideration of admission/observation: Escalation of care including admission/observation considered offered rehab and possible feeding tube option but he adamantly declines Lab Data [facility] Lab Attestation statement: I reviewed the patient's lab results. 07/20/23 14:41 07/20/23 14:40 Labs: Lab Results 07/20/23 07/20/23 Range/Units 14:40 14:41 WBC 5.3 (4.8-10.8) X10*3/uL RBC 4.64 (4.60-5.80) X10*6/uL Hgb 14.1 (14.0-18.0) g/dl Hct 42.9 (42.0-52.0) % MCV 92.5 (80.0-98.0) fL MCH 30.4 (27.0-33.0) pg MCHC 32.9 (31.0-36.0) g/dl RDW 14.8 (11.0-16.0) % Plt Count 213 (160-400) X10*3/uL MPV 11.9 (9.4-12.4) fL Immature Gran % (Auto) 0.4 (0.0-0.4) % Neut % (Auto) 50.4 (45-73) % Lymph % (Auto) 33.8 (20-40) % [place] % (Auto) 12.2 H (2-11) % Eos % (Auto) 2.4 (0-4) % Baso % (Auto) 0.8 (0-2) % Lymph # (Auto) 1.8 (1.2-4.9) X10*3/uL [place] # (Auto) 0.7 (0.1-1.2) X10*3/uL Eos # (Auto) 0.1 (0.0-0.4) X10*3/uL Baso # (Auto) 0.0 (0.0-0.2) X10*3/uL Abs Immat Gran (auto) 0.02 (0.00-0.03) X10*3/uL Absolute Neuts (auto) 2.7 (2.0-8.3) x10*3/uL Absolute Nucleated RBC 0.000 (0.0-0.012) X10*3/uL Nucleated RBC % (auto) 0.0 (0.0-0.2) /100WBC Sodium 141 (135-145) mmol/L Potassium 4.6 (3.3-5.1) mmol/L Chloride 107 (96-108) mmol/L Carbon Dioxide 27 (22-29) mmol/L Anion Gap 12 (12-20) BUN 9 (9-16) mg/dL Creatinine 0.79 (0.5-1.4) mg/dL Estim Creat Clear Calc 72.7 Estimated GFR > 60 Random Glucose 80 (60-115) mg/dL Calcium 9.6 (8.4-10.2) mg/dL External Record Review External record reviewed: Inpatient record Discharge Plan Discharge Clinical Impression: Dysphagia Qualifiers: Dysphagia type: unspecified Qualified Code(s): R13.10 - Dysphagia, unspecified Patient Disposition: Home, Self-Care Instructions: Dysphagia (ED) Additional Instructions: you are only supposed to be eating nectar thickened liquids. please stop trying to eat solid foods or liquids that are not thickened. return for fevers, cough, difficulty breathing or any other concerns. se supone que s?lo debes comer l?quidos espesados ??con n?ctar. deje de intentar comer alimentos s?lidos o l?quidos que no est?n espesos. Regrese si tiene fiebre, tos, dificultad para respirar o cualquier otra inquietud. Prescriptions: No Action latanoprost 0.005 % drops 1 drp ophthalmic (eye) DAILY gabapentin 600 mg tablet 600 mg PO TID clonazepam 1 mg tablet 1 mg PO DAILY amlodipine 5 mg tablet 5 mg PO DAILY tramadol 50 mg tablet 50 mg PO DAILY PRN (Reason: Pain) mirtazapine 30 mg tablet 60 mg PO BEDTIME Biktarvy 50-200-25 mg tablet 1 tab PO DAILY albuterol sulfate 90 mcg/actuation HFA aerosol inhaler 2 puff inhalation Q6H PRN (Reason: wheezing) ferrous gluconate 324 mg (38 mg iron) tablet 324 mg PO DAILY Rx Instructions: PATIENT STOP TAKING BECAUSE CONSTIPATION . HE IS AWARE HE SHOULD BE TAKING MED . calcium carbonate-vitamin D3 [Calcium 600 + D(3)] 600 mg-10 mcg (400 unit) Tablet 1 tab PO BID guaifenesin [Chest Congestion Relief] 100 mg/5 mL liquid 200 mg PO TID PRN (Reason: Cough) diphenhydramine HCl [Banophen] 25 mg tablet 50 mg PO BEDTIME fluconazole [Diflucan] 100 mg tablet 100 mg PO DAILY Qty: 7 0RF fluticasone propion-salmeterol [Advair HFA] 230-21 mcg/actuation HFA aerosol inhaler 2 puff inhalation BID risperidone 3 mg tablet 3 mg PO BEDTIME brimonidine-timolol 0.2-0.5 % drops 1 drp ophthalmic (eye) BID Referrals: Michelle [Outside] (Agency has been made aware that you need to have a pureed diet and nectar thick liquids. ) Print Language: Khmer
[2023-07-20 12:48] VITALS: BP 122/91; BP 124/89; PULSE 92; PULSE 93; RESP 18; TEMP 36.3; O2SAT 95; O2SAT 97; BMI 18.7
[2023-07-20 14:47] LABS: MANUAL DIFF FLAG NO
[2023-07-20 14:49] LABS: Basophils Percent Auto 0.8 % (0-2); Eosinophils Absolute Auto 0.1 X10*3/uL (0.0-0.4); Eosinophils Percent Auto 2.4 % (0-4); Hematocrit 42.9 % (42.0-52.0); Hemoglobin 14.1 g/dl (14.0-18.0); Imm Gran Abs Auto 0.02 X10*3/uL (0.00-0.03); Imm Gran Pct Auto 0.4 % (0.0-0.4); Lymphocytes Absolute Auto 1.8 X10*3/uL (1.2-4.9); Lymphocytes Percent Auto 33.8 % (20-40); Mean Corpuscular HGB Conc 32.9 g/dl (31.0-36.0); Mean Corpuscular Hemoglobin 30.4 pg (27.0-33.0); Mean Corpuscular Volume 92.5 fL (80.0-98.0); Mean Platelet Volume 11.9 fL (9.4-12.4); Monocytes Absolute Auto 0.7 X10*3/uL (0.1-1.2); Monocytes Percent Auto 12.2 % (2-11); Neutrophils Absolute Auto 2.7 x10*3/uL (2.0-8.3); Neutrophils Percent Auto 50.4 % (45-73); Platelet Count 213 X10*3/uL (160-400); Red Blood Count 4.64 X10*6/uL (4.60-5.80); Red Cell Distribution Width 14.8 % (11.0-16.0); White Blood Count 5.3 X10*3/uL (4.8-10.8)
[2023-07-20 15:04] LABS: Anion Gap 12 (12-20); Blood Urea Nitrogen 9 mg/dL (9-16); Calcium 9.6 mg/dL (8.4-10.2); Carbon Dioxide 27 mmol/L (22-29); Chloride 107 mmol/L (96-108); Creatinine Clr Calc Pharmacy 72.7; Estimated Glomerular Filt Rate > 60; Glucose Random 80 mg/dL (60-115); Potassium 4.6 mmol/L (3.3-5.1); Sodium 141 mmol/L (135-145)
[2023-07-20 16:00] VITALS: BP 133/86; PULSE 70; RESP 16; TEMP 36.7; O2SAT 93
--- NOTE | 2023-07-20 16:00 | MHC.CM.ED ---
Received case management consult from Carmen PICKERING. Work up is still pending. Patient was recently d/c'd from [facility] [place]. Patient has a history of dysphagia and has refused short term rehab in the past.Continue to monitor for d/c needs.
--- NOTE | 2023-07-20 16:32 | MHC.CM.ED ---
Met with patient and assistant professor of life sciences in regards to discharge planning. Patient was d/c'd from [facility] [place] on 07/19 with resumption of [facility]. Patient was supposed to be on [place] thick liquids and pureed feed. Patient states he wasn't told this. A couple of packets of thickner provided and explained. Also explained pureed diet requirements. Also explained to patient that he could go to a fdc facility for rehab and swallowing assistance, return home with [facility] or look at hospice at home options. Patient is not interested in SNF or hospice at home. Wants to return home with [facility]NA. Octavia acuña aware. Transport booked for 630pm. Patient and Dr Nagel aware. Continue to monitor for d/c needs.
== END 2023-07-20 19:55 | disposition home or self-care (01) ==
PROVIDERS: Nurse Practitioner Family; Emergency Provider Emergency Medicine
DX: R13.10 Dysphagia, unspecified (principal); R53.83 Other fatigue; Z87.891 Personal history of nicotine dependence; Z79.899 Other long term (current) drug therapy
CPT/HCPCS: 36415; 80048; 85025; 99283

== ENCOUNTER 2023-07-27 07:29 | Inpatient (IN) | payer OTHER, SELFPAY ==
[2023-07-27] VITALS (13 sets, daily range): BP systolic 101–136; BP diastolic 69–92; PULSE 62–118; RESP 12–20; TEMP 36.3–36.6; O2SAT 90–97; BMI 17.4; BMI 16.0
--- NOTE | 2023-07-27 | ECG_ITS ---
Test Reason : chest pain Blood Pressure : / mmHG Vent. Rate : 064 BPM Atrial Rate : 064 BPM P-R Int : 164 ms QRS Dur : 108 ms QT Int : 422 ms P-R-T Axes : 072 070 059 degrees QTc Int : 435 ms Normal sinus rhythm Incomplete right bundle branch block Borderline ECG When compared with ECG of 27-JUL-2023 08:12, Vent. rate has decreased BY 31 BPM Referred By: Racheal Ji Electronically Signed By:JAVID ARECHIGA MD
--- NOTE | ~2023-07-27 | CT_ITS ---
EXAMINATION: CT SOFT TISSUE NECK WITH CONTRAST CLINICAL INFORMATION: Dysphagia and aphasia. Question tonsillar lesion. COMPARISON: CT head 06/18/2023. TECHNIQUE: Following the intravenous administration of 60 mL of Omnipaque 350 intravenous contrast, helical imaging was performed in the axial plane with generation of coronal and sagittal reformatted images. This CT examination was performed using dose optimization techniques as appropriate, variously including the following: *Automated exposure control *Adjustment of mA and/or kV according to patient size (this includes techniques or standardized protocols for targeted exams where dose is matched to indication/reason for exam; i.e. extremities or head) *Use of iterative reconstruction technique DLP: 268 mGy-cm FINDINGS: There is possible asymmetric mucosal thickening and enhancement within the right glossotonsillar sulcus. Pharyngeal mucosal spaces are otherwise symmetric. The parotid and submandibular glands are normal. Parapharyngeal and retromaxillary fat is preserved. Customer Success Manager spaces are unremarkable. The tongue base and epiglottis are normal. Preepiglottic fat is preserved. Glottic and subglottic airways are widely patent. The thyroid gland is normal and the remainder of the visualized visceral soft tissues are normal. There are no pathologically enlarged cervical lymph nodes. No mediastinal or axillary adenopathy is visualized within the [id number] of this examination. Lung apices are clear. Aortic arch apex is normal. Cervical carotid and vertebral arteries are patent. There is no contrast filling the right internal jugular vein. The left internal jugular vein is widely patent. No acute osseous finding. Specifically no worrisome lytic or blastic osseous lesion. There is advanced multilevel degenerative arthrosis of the cervical spine with at least mild canal stenosis at multiple levels. Possible moderate canal stenosis at C3-C4. CT/CT soft tissue neck w IV con IMPRESSION: There is possible asymmetric mucosal thickening and enhancement within the right glossotonsillar sulcus. Correlation with direct visualization is therefore recommended with regard to this finding. Otherwise no discrete enhancing soft tissue mass or adenopathy is visualized elsewhere within the [id number] of this examination. There is advanced multilevel degenerative arthrosis of the cervical spine with at least mild canal stenosis at multiple levels. Possible moderate canal stenosis at C3-C4. If there are clinical symptoms of compressive myelopathy then a dedicated cervical spine MRI can be obtained for better anatomic characterization of the cord and canal.
--- NOTE | ~2023-07-27 | XR_ITS ---
EXAMINATION: XR CHEST CLINICAL INFORMATION: Pain at sternoclavicular joints. COMPARISON: 07/15/2023 TECHNIQUE: Frontal view of the chest was obtained. FINDINGS: The lungs are well expanded. No focal consolidation. No pleural effusion. Cardiac silhouette is unchanged. XR/XR chest 1V IMPRESSION: No acute abnormality.
--- NOTE | 2023-07-27 07:57 | ECG_ITS ---
Test Reason : CHEST PAIN Blood Pressure : / mmHG Vent. Rate : 095 BPM Atrial Rate : 095 BPM P-R Int : 152 ms QRS Dur : 102 ms QT Int : 372 ms P-R-T Axes : 083 078 053 degrees QTc Int : 467 ms Normal sinus rhythm Incomplete right bundle branch block Borderline ECG When compared with ECG of 15-JUL-2023 09:07, No significant change was found Referred By: Berenice Nagel Electronically Signed By:JAVID ARECHIGA MD
--- NOTE | 2023-07-27 08:07 | ED.CHESTPAIN ---
HPI - Chest Pain General Chief Complaint: Chest Pain Stated Complaint: THROAT PAIN X 4DAYS Time Seen by Provider: 07/27/23 07:35 Source: patient Mode of arrival: ambulatory Limitations: no limitations History of Present Illness HPI narrative: 58 yo male with PMH of HIV [viral load undetectable 06/02/23, CD4 377 11/29/22, mild persistent asthma, history HCV, and history empyema of the lung, known dysphagia just had EGD on 07/17 with [facility] - white spots upper esophagus mild candidiasis - speech saw patient and recommended NND +1 nectar thick liquid diet - he was seen on 07/20 in our ED by me refused rehab and wanted to go home with VNA and we gave him thickening packets he presents today stating he has lots of throat pain and cannot live like this or tolerate it anymore. He cannot consume anything and has L sided chest pain and cough as well. MD complaint: chest pain (throat pain) Onset (ago): month(s) (3+) Timing of current episode: constant Prior episodes: Yes Onset: other (swallowing) Pain location: substernal and left chest Pain radiation: none Severity: severe Quality: burning Relieving factors: nothing Exacerbating factors: eating Context: other Associated symptoms: other (fatigue, weight loss) Treatment prior to arrival: none Related Data Home Medications Medication Instructions Recorded Confirmed amlodipine 5 mg tablet 5 mg PO DAILY 12/30/22 07/15/23 bictegravir 50 mg-emtricitabine 1 tab PO DAILY 12/30/22 07/15/23 200 mg-tenofovir alafenam 25 mg tablet (Biktarvy) clonazepam 1 mg tablet 1 mg PO DAILY 12/30/22 07/15/23 gabapentin 600 mg tablet 600 mg PO TID 12/30/22 07/15/23 latanoprost 0.005 % eye drops 1 drp ophthalmic (eye) DAILY 12/30/22 07/15/23 mirtazapine 30 mg tablet 60 mg PO BEDTIME 12/30/22 07/15/23 tramadol 50 mg tablet 50 mg PO DAILY PRN Pain 12/30/22 07/15/23 albuterol sulfate 90 mcg/actuation 2 puff inhalation Q6H PRN wheezing 02/12/23 07/15/23 aerosol inhaler ferrous gluconate 324 mg (38 mg 324 mg PO DAILY 02/12/23 07/15/23 iron) tablet brimonidine 0.2 %-timolol 0.5 % 1 drp ophthalmic (eye) BID 06/01/23 07/15/23 eye drops fluticasone propionate 230 2 puff inhalation BID 06/01/23 07/15/23 mcg-salmeterol 21 mcg/actuation HFA inhaler (Advair HFA) risperidone 3 mg tablet 3 mg PO BEDTIME 06/01/23 07/15/23 calcium carbonate 600 mg-vitamin 1 tab PO BID 06/24/23 07/15/23 D3 10 mcg (400 unit) tablet (Calcium 600 + D(3)) diphenhydramine HCl 25 mg tablet 50 mg PO BEDTIME 07/15/23 07/15/23 (Banophen) guaifenesin 100 mg/5 mL oral 200 mg PO TID PRN Cough 07/15/23 07/15/23 liquid (Chest Congestion Relief) Previous Rx's Medication Instructions Recorded fluconazole 100 mg tablet 100 mg PO DAILY #7 tabs 07/19/23 (Diflucan) Allergies Allergy/AdvReac Type Severity Reaction Status Date / Time Seasonal Allergies Allergy Intermediate Eye Verified 07/20/23 12:48 Drainage codeine Allergy Mild Rash Verified 07/20/23 12:48 [From Tylenol-Codeine #3] levofloxacin [From Levaquin] Allergy Mild Rash Verified 07/20/23 12:48 metoclopramide [From Reglan] Allergy Mild Rash Verified 07/20/23 12:48 acetaminophen Allergy Unknown Unknown Verified 07/20/23 12:48 [Tylenol-Codeine #3] Penicillins [PENICILLINS] Allergy Unknown Rash Verified 07/20/23 12:48 tramadol [From Ultram] AdvReac Mild Nausea and Verified 07/20/23 12:48 Vomiting ibuprofen [From Motrin] AdvReac Unknown Reflux Verified 07/20/23 12:48 Review of Systems Review of Systems: Constitutional : pos Weight loss, No Fever, No Chills, pos fatigue ENT/Mouth : No sore throat, No Rhinorrhea, pos throat pain Eyes: No Eye Pain, No Swelling Cardiovascular : pos Chest Pain, no SOB, no Dyspnea on Exertion, No Orthopnea, No Edema, No Palpitations Respiratory : No Cough, No Sputum Gastrointestinal : no Nausea, No Vomiting, No Diarrhea, No abdominal Pain, No Hematochezia, No Melena Genitourinary : No Dysuria, No Urinary Frequency Musculoskeletal : No joint pain, No Myalgias, No Joint Swelling Skin : No Skin Lesions, No rash Neuro : No Weakness, No Numbness, No Dizziness, No Headache All other systems reviewed and are negative [facility] Past Medical History Attestation statement: The following information was validated with the patient. Source: old records reviewed Medical History Multiple rib fractures History of empyema of pleura (01/05/23) Hypertension Closed fracture of leg Hepatitis C Kidney stones Pleuritic chest pain Pneumonia Substance abuse Hemorrhoids Depression HIV (human immunodeficiency virus infection) Asthma Surgical History H/O hemorrhoidectomy Social History Social History Household Members: Other Household Members Other:: sister Housing: Apartment Do you presently have visiting nurse or other home services: Yes Alcohol intake: never Patient Tobacco Use Status: Former Tobacco user Tobacco use type: Cigarette Smoked in Last 30 Days: No Second Hand Smoke Exposure: No Use of substances other than those prescribed or required for medical reasons: No Substance Use Type: Crack/Cocaine Any prior treatment program specific to substance use: No Advance Directives: Yes Advance Directives on File: Yes Advance Directives Date on File: 04/25/21 service: No Current occupational status: disabled Physical Exam Vital Signs: Vital Signs: Last Vital Signs Temp 97.7 F 07/27/23 09:15 Pulse 82 07/27/23 10:19 Resp 16 07/27/23 10:19 BP 120/92 H 07/27/23 09:15 Pulse Ox 91 L 07/27/23 09:15 O2 Del Method Room Air 07/27/23 09:15 BMI result Body Mass Index 17.4 Appearance: Alert. Oriented X3. No acute distress. Frail cachectic Eyes: Pupils equal, round and reactive to light. ENT: Pharynx very dry, no white patches but beefy red tongue Neck: Normal inspection. Neck supple. CVS: Normal heart rate and rhythm. Pulses normal. Respiratory: No respiratory distress. Breath sounds normal. Abdomen: Soft and nontender. Skin: Skin warm and dry. Normal skin color. poor skin turgor. Extremities: No lower extremity edema. Neuro: Oriented X 3. No motor deficit. No sensory deficit. 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 Dodson Reevaluation(s) Reevaluation #1: 95% after duoneb Medications Administered Generic Name Dose Route Start Last Admin Trade Name Freq PRN Reason Stop Dose Admin Sodium Chloride 1,000 mls @ 100 mls/hr 07/27/23 09:30 07/27/23 09:20 Ns IVCONT 100 mls/hr .Q10H MICHAEL Administration Discontinued Medications Generic Name Dose Route Start Last Admin Trade Name Freq PRN Reason Stop Dose Admin Albuterol/Ipratropium 3 ml 07/27/23 10:09 07/27/23 10:18 Albuterol/Iprat 2.5/0.5mg 3 Ml Ampul.Neb INHALE 07/27/23 10:10 3 ml ONCE ONE Administration Lidocaine/Diphenhydr/Alum/Mg/Simeth 10 ml 07/27/23 08:03 07/27/23 09:18 Mag&Al/Sim/Diphenhyd/Lidocaine 10 Ml Oral.Susp PO 07/27/23 08:04 10 ml ONCE ONE Administration Protocol Medical Decision Making Medical Decision Making [facility] Narrative: 58 yo male with PMH of HIV [viral load undetectable 06/02/23, CD4 377 11/29/22, mild persistent asthma, history HCV, and history empyema of the lung, known dysphagia just had EGD on 07/17 with [facility] - white spots upper esophagus mild candidiasis here with worsening dysphagia and now FTT who has refused his diet of nectar thick liquids, feeding tube and rehab - he now looks more frail in 7 days, dehydrated. I have ordered EKG, labs, CXR and magic mouthwash I see no thrush at this time. I am going to consult CM about hospice. Differential Diagnosis Differential Diagnoses: The differential diagnosis associated with the presentation includes FTT, pneumonia, dehydration Admission/Observation Consideration of admission/observation: Escalation of care including admission/observation considered admit for feeding tube - GI aware would plan Sunday Consult Healthcare Provider Management of the patient was discussed with: Hospitalist (will admit) and [facility] [place] (Dr. Dodson aware) Lab Data MDM Lab Attestation statement: I reviewed the patient's lab results. 07/27/23 09:42 07/27/23 09:42 Labs: Lab Results 07/27/23 07/27/23 Range/Units 08:48 09:42 WBC 3.1 L (4.8-10.8) X10*3/uL RBC 4.36 L (4.60-5.80) X10*6/uL Hgb 13.3 L (14.0-18.0) g/dl Hct 40.4 L (42.0-52.0) % MCV 92.7 (80.0-98.0) fL MCH 30.5 (27.0-33.0) pg MCHC 32.9 (31.0-36.0) g/dl RDW 14.6 (11.0-16.0) % Plt Count 176 (160-400) X10*3/uL MPV 11.8 (9.4-12.4) fL Immature Gran % (Auto) 0.0 (0.0-0.4) % Neut % (Auto) 47.5 (45-73) % Lymph % (Auto) 36.1 (20-40) % [place] % (Auto) 12.5 H (2-11) % Eos % (Auto) 2.9 (0-4) % Baso % (Auto) 1.0 (0-2) % Lymph # (Auto) 1.1 L (1.2-4.9) X10*3/uL [place] # (Auto) 0.4 (0.1-1.2) X10*3/uL Eos # (Auto) 0.1 (0.0-0.4) X10*3/uL Baso # (Auto) 0.0 (0.0-0.2) X10*3/uL Abs Immat Gran (auto) 0.00 (0.00-0.03) X10*3/uL Absolute Neuts (auto) 1.5 L (2.0-8.3) x10*3/uL Absolute Nucleated RBC 0.000 (0.0-0.012) X10*3/uL Nucleated RBC % (auto) 0.0 (0.0-0.2) /100WBC Sodium 142 (135-145) mmol/L Potassium 4.2 (3.3-5.1) mmol/L Chloride 107 (96-108) mmol/L Carbon Dioxide 26 (22-29) mmol/L Anion Gap 13 (12-20) BUN 14 (9-16) mg/dL Creatinine 0.81 (0.5-1.4) mg/dL Estim Creat Clear Calc 68.0 Estimated GFR > 60 Random Glucose 88 (60-115) mg/dL Calcium 9.7 (8.4-10.2) mg/dL Magnesium 2.2 (1.6-2.6) mg/dL Total Bilirubin 0.5 (0.0-1.0) mg/dL Direct Bilirubin 0.2 (0.0-0.5) mg/dL AST 32 (5-37) U/L ALT 40 (0-40) U/L Alkaline Phosphatase 58 (39-117) U/L Troponin I High Sens < 2.7 (<3.5-35.0) ng/L Total Protein 7.6 (6.5-8.0) g/dL Albumin 4.0 (3.5-5.0) g/dL COVID-19 (TAMMIE) Negative (Negative) COVID-19 Clin Com See Note Independent Interpretation I performed an independent interpretation of an: EKG and Plain X-Ray (no pneumonia) Interpretation: Rate: 95 Rhythm: NSR [place]: normal Normal P waves. Normal JONI. Normal QRS complex. ST T wave : normal, no ANA qTC: normal prior studies: no acute ischemia The study has been interpreted contemporaneously by me. . Radiology Impression Discussion of test interpretation with radiology: I have reviewed the radiologist's reading. External Record Review External record reviewed: Inpatient record Social Determinants Patient?s care significantly limited by Social Determinants of Health including: Problems related to primary support group Discharge Plan Discharge Clinical Impression: Atypical chest pain, Adult failure to thrive Dysphagia Qualifiers: Dysphagia type: unspecified Qualified Code(s): R13.10 - Dysphagia, unspecified Patient Disposition: Admitted As Inpatient
--- NOTE | 2023-07-27 08:43 | PC.NURSE ---
2X ATTEMPT FOR IV. CRESENCIO BROWN ATTEMPTING NOW.
[2023-07-27 09:15] LABS: Troponin-I High Sensitivity < 2.7 ng/L (<3.5-35.0)
[2023-07-27] MEDS: Mag&Al/Sim/Diphenhyd/Lidocaine 10 ML ORAL.SUSP PO (09:18)
--- NOTE | 2023-07-27 09:25 | PC.NURSE ---
this RN resumed are of pt at this time. vss and up to date at this time. nsr on the bus monitor. pt medicated per provider order. pt c/o 05/20 chest/epigastric pain at this time. crackles noted throughout. no sob/wob noted. pt able to speak w/o difficulty. pt resting in bed in no apparent distress. respirations even and unlabored. call jansen placed within reach.
--- NOTE | 2023-07-27 09:43 | PC.NURSE ---
repeat labs obtained and sent.
[2023-07-27 09:48] LABS: Eosinophils Absolute Auto 0.1 X10*3/uL (0.0-0.4); Eosinophils Percent Auto 2.9 % (0-4); Hematocrit 40.4 % (42.0-52.0); Hemoglobin 13.3 g/dl (14.0-18.0); Lymphocytes Absolute Auto 1.1 X10*3/uL (1.2-4.9); Lymphocytes Percent Auto 36.1 % (20-40); Mean Corpuscular HGB Conc 32.9 g/dl (31.0-36.0); Mean Corpuscular Hemoglobin 30.5 pg (27.0-33.0); Mean Corpuscular Volume 92.7 fL (80.0-98.0); Mean Platelet Volume 11.8 fL (9.4-12.4); Monocytes Absolute Auto 0.4 X10*3/uL (0.1-1.2); Monocytes Percent Auto 12.5 % (2-11); Neutrophils Absolute Auto 1.5 x10*3/uL (2.0-8.3); Neutrophils Percent Auto 47.5 % (45-73); Platelet Count 176 X10*3/uL (160-400); Red Blood Count 4.36 X10*6/uL (4.60-5.80); Red Cell Distribution Width 14.6 % (11.0-16.0); White Blood Count 3.1 X10*3/uL (4.8-10.8)
[2023-07-27 09:52] LABS: MANUAL DIFF FLAG NO
[2023-07-27 10:01] LABS: Alanine Aminotransferase 40 U/L (0-40); Alkaline Phosphatase 58 U/L (39-117); Anion Gap 13 (12-20); Aspartate Amino Transferase 32 U/L (5-37); Bilirubin Direct 0.2 mg/dL (0.0-0.5); Bilirubin Total 0.5 mg/dL (0.0-1.0); Blood Urea Nitrogen 14 mg/dL (9-16); COVID-19 Test Negative (Negative); Calcium 9.7 mg/dL (8.4-10.2); Carbon Dioxide 26 mmol/L (22-29); Chloride 107 mmol/L (96-108); Estimated Glomerular Filt Rate > 60; Glucose Random 88 mg/dL (60-115); IDNOW Serial# BCCEAD1C; Magnesium 2.2 mg/dL (1.6-2.6); Potassium 4.2 mmol/L (3.3-5.1); Sodium 142 mmol/L (135-145); Total Protein 7.6 g/dL (6.5-8.0)
[2023-07-27] MEDS: Albuterol/Iprat 2.5/0.5MG 3 ML AMPUL.NEB INHALE ×4 (10:18→19:39)
--- NOTE | 2023-07-27 12:21 | PC.NURSE ---
vss and up to date at this time. nsr on the monitoring tech. pt c/o 05/20 epigastric pain at this time - requesting pain medication. will notify provider.
[2023-07-27] MEDS: Lactated Ringers 1,000 ML 100 ML IVCONT ×2 (13:21→23:38)
--- NOTE | 2023-07-27 13:21 | PHA.MEDREC ---
Pharmacy Consult ? Medication Reconciliation Pharmacy has completed the medication reconciliation. Reactor Service Operator services used but patient does understand Uzbek. Had trouble speaking but I went down his med list and he shook his head yes or no to medications. When asked when he last took his meds he put up 4 fingers and confirmed with a head shake when I asked if he meant 4 days ago.
[2023-07-27] MEDS: Fluconazole in NaCl,Iso-Osm 100 MG in Container,Empty 0 ML 50 MG IV (13:25)
[2023-07-27] MEDS: Morphine Sulfate 2 MG/ML CARTRIDGE 1 MG IVPUSH (13:41)
--- NOTE | 2023-07-27 13:42 | PC.NURSE ---
pt c/o 05/20 pain - medication administered per provider order. will reassess shortly.
--- NOTE | 2023-07-27 14:20 | PC.NURSE ---
pt verbalizing pain level decreased to a 6/10 post medication administration. resting comfortably in no apparent distress. respirations remain even and unlabored.
--- NOTE | 2023-07-27 14:36 | PC.NURSE ---
speech and swallow contacted - will be in shortly to evaluate/assess.
--- NOTE | 2023-07-27 14:41 | MHC.CLN ---
RE: CONSULT PT IS SEVERELY MALNOURISHED QUALIFIES FOR SEVERE MALNUTRITION IN THE CONTEXT OF CHRONIC ILLNESS PT WITH MODERATELY DEPLETED SUBCUTANEOUS FAT AND MUSCLE MASS, BMI 17 AND 15% SIGNIFICANT WT LOSS X 6 MONTHS WITH CHRONIC POOR PO INTAKE X 2 WEEKS CURRENTLY NPO-AWAITING PEG PLACEMENT IF TF NEEDED; RECOMMEND JEVITY 1.0 AT MAX GOAL RATE 60ML/HR WITH 120ML FREE WATER FLUSHES Q 8 HRS TO PROVIDE 1526KCALS (31KCALS/KG), 63.7G PROTEIN (1.3G/KG), 1562ML TOTAL WATER FROM FORMULA AND FLUSHES (32ML/KG) START FORMULA AT 20ML/HR AND INCREASE BY 10ML Q 4 HRS UNTIL MAX GOAL IS ACHIEVED MONITOR TOLERANCE, RESIDUALS AND LYTES SEE ALSO CLINICAL NUTRITION ASSESSMENT
--- NOTE | 2023-07-27 15:52 | MHC.SL.SWA ---
Speech Pathologist Impression: Risk of aspiration, oropharyngeal dysphagia Risk of Aspiration Due to: Medically Fragile Weak Cough Weak Voice Dysphasia Diet Status: START on NDD1/NTL Liquid Consistency and Strategies for Safe Swallow: Liquid Intake Recommendation: [place] Thick Liquid Intake Strategies: Small Sips No Straws Double Swallow Solid Food Consistency: Dietary Recommendations: Pureed (NDD1) Additional Modifications to Solid Foods: Pt seen by TRANSPORT ANALYST in the ED for bedside swallow evaluation. Pt having difficulty forming bolus with solids, demonstrated delayed oral transit, and delayed swallow trigger. Note minimal chewing, anterior pocketing of ground textures, throat clearing on trials of thin liquid. Recommend TRANSPORT ANALYST's previous recommendation of PUREED (NDD1) solids with NECTAR THICK liquids (no straws), crushed pills in PUREE. Pt requires total 1:1 assist for PO intake- administer small bites, check oral cavity intermittently for clearance, cue pt for dry swallow after each bite and sip, do not administer more bites/sips until oral cavity is cleared, liquids via spoon or controlled cup. Ensure strict aspiration precautions, close monitoring of tolerance, and frequent oral care for hygiene and comfort. Pt was seen by TRANSPORT ANALYST during several subsequent ED visits and admissions. Pt would benefit from repeat MBSS, whether inpatient or outpatient, as it seems his swallow has declined. Oral Medication Intake: Crushed with Puree Please contact the pharmacy regarding appropriate crushable or liquid drug formulations that are available whenever modified delivery is recommended. Compensatory Strategies and Precautions to be Taken for Safe Swallow: Sitting Upright (90 deg) Double Swallow No Straw Small Bites and Sips Rate of Ingestion Change Oral Check Supervision While Eating and Drinking for Safe Swallow: Total Assistance (1:1) Foods to Avoid: Avoid difficult to chew solids. Swallowing Recommended Treatments: Compens. Strategy Educat. Recommendation for Speech: Inpatient Speech Therapy Speech Therapy through [facility] Speech Therapy through Rehab Facility Modified Barium Swallow Study - Inpatient Modified Barium Swallow Study - Outpatient Comment: Recommend continued ST during inpatient stay and at next level of care for worsening dysphagia. Frequency/Duration: Date Range for Service Req: Timeline to reassess: Regulatory Affairs Director Clinican/Clinical Fellow: No Supervisory Statement: I have reviewed and agree with the student/clinical fellow's documentation: N/A Speech Language Pathologist: Laura Hill M.A., [facility]-TRANSPORT ANALYST
[2023-07-27] MEDS: 0.9 % Sodium Chloride Flush 3 ML SYRINGE IVFLUSH ×2 (16:07→23:32)
--- NOTE | 2023-07-27 16:26 | P.HPHOSP_ITS ---
History of Present Illness Date of Service: 07/27/23 Attending physician on admission: Soraida Amador Chief Complaint: ftt ,dysphagia 58 y/o M with PMH of HIV , mild persistent asthma, history HCV, and history empyema of the lung, known dysphagia just had EGD on 07/17 with [facility] - white spots upper esophagus mild candidiasis - speech saw patient and recommended NND +1 nectar thick liquid diet : He was sent home with fluconazole he says in. He went home and he could on able to consume much food and he says he is beginning difficult day by day and unable to eat, feel dehydrated-decided to come to the ED,ED seen on 07/20 in our ED by me refused rehab and wanted to go home with [facility] and Ed given him thickening packets he presents today stating he has lots of throat pain and cannot live like this or tolerate it anymore. He cannot consume anything and has cough and feels chest discomfort when coughs , denies any sputum production Or fever. Denies any recent travel or sick contacts. Denies any nausea vomiting or abdominal pain or weakness or numbness, generalized weak. Lab imaging EKG reviewed: WBC count 3.1 H&H: 13.3/40.4 BMP: Seems fine. Troponin: 2.7 EKG NSR. XR/XR chest 1V IMPRESSION: No acute abnormality. As per the ED physician: Who discussed with the patient is considering to get PEG tube which he is agreeable to. ED placed GI consult. Admission was given for dehydration, failure to thrive, dysphagia, possible question of PEG tube placement. Review of Systems 2 Review of Systems: As above. [facility] Medical History Multiple rib fractures History of empyema of pleura (01/05/23) Hypertension Closed fracture of leg Hepatitis C Kidney stones Pleuritic chest pain Pneumonia Substance abuse Hemorrhoids Depression HIV (human immunodeficiency virus infection) Asthma Surgical History H/O hemorrhoidectomy Social History Household Members: Other Household Members Other:: sister Housing: Apartment Do you presently have visiting nurse or other home services: Yes Alcohol intake: never Patient Tobacco Use Status: Former Tobacco user Tobacco use type: Cigarette Smoked in Last 30 Days: No Second Hand Smoke Exposure: No Use of substances other than those prescribed or required for medical reasons: No Substance Use Type: Crack/Cocaine Any prior treatment program specific to substance use: No Advance Directives: Yes Advance Directives on File: Yes Advance Directives Date on File: 04/25/21 Nutrition Risks: No Nutritional Risk service: No Current occupational status: disabled Meds Allergies Allergy/AdvReac Type Severity Reaction Status Date / Time Seasonal Allergies Allergy Intermediate Eye Verified 07/20/23 12:48 Drainage codeine Allergy Mild Rash Verified 07/20/23 12:48 [From Tylenol-Codeine #3] levofloxacin [From Levaquin] Allergy Mild Rash Verified 07/20/23 12:48 metoclopramide [From Reglan] Allergy Mild Rash Verified 07/20/23 12:48 acetaminophen Allergy Unknown Unknown Verified 07/20/23 12:48 [Tylenol-Codeine #3] Penicillins [PENICILLINS] Allergy Unknown Rash Verified 07/20/23 12:48 tramadol [From Ultram] AdvReac Mild Nausea and Verified 07/20/23 12:48 Vomiting ibuprofen [From Motrin] AdvReac Unknown Reflux Verified 07/20/23 12:48 Active Medications: Current Medications Albuterol Sulfate (Albuterol Sulfate 90 Mcg 8 Gm Inhaler) 2 puff INHALE Q6H PRN PRN Reason: wheezing Albuterol/Ipratropium (Albuterol/Iprat 2.5/0.5mg 3 Ml Ampul.Neb) 3 ml INHALE Q4H [facility] Last Admin: 07/27/23 15:20 Dose: 3 ml Amlodipine Besylate (Amlodipine Besylate 5 Mg Tablet) 5 mg PO DAILY [facility]; Protocol Bictegravir/Emtricitabine/Tenofovir (Bictegrav/Emtricit/Tenofov Ala Tablet) 1 tab PO DAILY [facility] Brimonidine Tartrate (Brimonidine Tartrate 0.2% Oph 5 Ml Bottle) 1 drop EYE- BOTH BID [facility] Calcium Carbonate/Cholecalciferol (Calcium + Vitamin D 250 Mg Tablet) 500 mg PO BID [facility] Clonazepam (Clonazepam 1 Mg Tablet) 1 mg PO DAILY [facility] Diphenhydramine HCl (Diphenhydramine Hcl 25 Mg Capsule) 50 mg PO BEDTIME [facility] Ferrous Sulfate (Ferrous Sulfate 324 Mg Tablet.Dr) 324 mg PO DAILY [facility] Fluticasone/Vilanterol (Fluticasone/Vilanterol 200/25 Blst.W.Dev) 1 puff INHALE RDAILY [facility] Gabapentin (Gabapentin 600 Mg Tablet) 600 mg PO TID [facility] Lactated Ringer's (Lr) 1,000 mls @ 100 mls/hr IVCONT .Q10H [facility] Last Admin: 07/27/23 13:21 Dose: 100 mls/hr Fluconazole 100 mg/ IV (Miscellaneous Supplies) 50 mls @ 50 mls/hr IV Q24H [facility] Last Infusion: 07/27/23 14:25 Dose: Infused Latanoprost (Latanoprost 0.005 % Ophth Carol 2.5 Ml Drops) 1 drop EYE-BOTH DAILY [facility] Mirtazapine (Mirtazapine 30 Mg Tablet) 60 mg PO BEDTIME [facility] Risperidone (Risperidone 3 Mg Tablet) 3 mg PO BEDTIME [facility] Sodium Chloride (0.9 % Sodium Chloride Flush 3 Ml Syringe) 3 ml IVFLUSH QSHIFT [facility] Last Admin: 07/27/23 16:07 Dose: 3 ml Timolol Maleate (Timolol Maleate 0.5 % Oph Carol 5 Ml Drbtl) 1 drop EYE-BOTH BID [facility] Home Medications Medication Instructions Recorded Confirmed Last Taken Type amlodipine 5 mg tablet 5 mg PO DAILY 12/30/22 07/27/23 4 Days Ago History ~07/23/23 bictegravir 50 mg-emtricitabine 1 tab PO DAILY 12/30/22 07/27/23 4 Days Ago History 200 mg-tenofovir alafenam 25 mg ~07/23/23 tablet (Biktarvy) clonazepam 1 mg tablet 1 mg PO DAILY 12/30/22 07/27/23 4 Days Ago History ~07/23/23 gabapentin 600 mg tablet 600 mg PO TID 12/30/22 07/27/23 4 Days Ago History ~07/23/23 latanoprost 0.005 % eye drops 1 drp ophthalmic (eye) DAILY 12/30/22 07/27/23 4 Days Ago History ~07/23/23 mirtazapine 30 mg tablet 60 mg PO BEDTIME 12/30/22 07/27/23 4 Days Ago History ~07/23/23 tramadol 50 mg tablet 50 mg PO DAILY PRN Pain 12/30/22 07/27/23 4 Days Ago History ~07/23/23 albuterol sulfate 90 mcg/actuation 2 puff inhalation Q6H PRN wheezing 02/12/23 07/27/23 4 Days Ago History aerosol inhaler ~07/23/23 ferrous gluconate 324 mg (38 mg 324 mg PO DAILY 02/12/23 07/27/23 4 Days Ago History iron) tablet ~07/23/23 brimonidine 0.2 %-timolol 0.5 % 1 drp ophthalmic (eye) BID 06/01/23 07/27/23 4 Days Ago History eye drops ~07/23/23 fluticasone propionate 230 2 puff inhalation BID 06/01/23 07/27/23 4 Days Ago History mcg-salmeterol 21 mcg/actuation ~07/23/23 HFA inhaler (Advair HFA) risperidone 3 mg tablet 3 mg PO BEDTIME 06/01/23 07/27/23 4 Days Ago History ~07/23/23 calcium carbonate 600 mg-vitamin 1 tab PO BID 06/24/23 07/27/23 4 Days Ago History D3 10 mcg (400 unit) tablet ~07/23/23 (Calcium 600 + D(3)) diphenhydramine HCl 25 mg tablet 50 mg PO BEDTIME 07/15/23 07/27/23 4 Days Ago History (Banophen) ~07/23/23 Physical Exam 2 Vital Signs and Narrative: Vital Signs: Last Vital Signs Temp 97.4 F 07/27/23 16:09 Pulse 75 07/27/23 16:09 Resp 20 07/27/23 16:09 BP 101/69 07/27/23 16:09 Pulse Ox 97 07/27/23 16:09 O2 Del Method Room Air 07/27/23 16:09 BMI result Body Mass Index 17.4 Physio: Appearance: Alert.? Oriented X3.? not in distress.ch sick,genenalised weak. oral mucousa dry cvs: rrr, [id number] . res: clear to auscultation ,no rhonchii or wheezing abd: no rebound or guarding ,nt, bs present. ext pulses present , no cyanosis . neuro: axo3 , nonfocal. Results Labs 07/27/23 09:42 07/27/23 09:42 Labs: Laboratory Results - last 24 hr 07/27/23 09:42 MCV 92.7 MCH 30.5 MCHC 32.9 RDW 14.6 Plt Count 176 MPV 11.8 Immature Gran % (Auto) 0.0 Neut % (Auto) 47.5 Lymph % (Auto) 36.1 Ponce % (Auto) 12.5 H Eos % (Auto) 2.9 Baso % (Auto) 1.0 Lymph # (Auto) 1.1 L Ponce # (Auto) 0.4 Eos # (Auto) 0.1 Baso # (Auto) 0.0 Abs Immat Gran (auto) 0.00 Absolute Neuts (auto) 1.5 L Absolute Nucleated RBC 0.000 Nucleated RBC % (auto) 0.0 Anion Gap 13 Estim Creat Clear Calc 68.0 Estimated GFR > 60 Random Glucose 88 Calcium 9.7 Magnesium 2.2 Total Bilirubin 0.5 Direct Bilirubin 0.2 AST 32 ALT 40 Alkaline Phosphatase 58 Total Protein 7.6 Albumin 4.0 COVID-19 (TAMMIE) Negative COVID-19 Clin Com See Note Imaging Radiologist's Impressions: Impressions Chest X-Ray 07/27/23 08:07 IMPRESSION: No acute abnormality. Assessment and Plan (1) Adult failure to thrive: Status: Acute (2) Dysphagia: Qualifiers: Dysphagia type: unspecified Qualified Code(s): R13.10 - Dysphagia, unspecified Status: Acute (3) Atypical chest pain: Status: Acute Plan 58 yo M with HIV [viral load undetectable 06/02/23, CD4 377 11/29/22, mild persistent asthma, history HCV, and history empyema of the lung here with dysphagia and chest pain related to rib fractures From previous admit :Dysphagia etiology, EGD 07/17 few whitish spots in upper esophagus, c/w mild candidiasis normal stomach and duodenum continue IV diflucan. Ivf Gi eval Diet started per speech recommendation HIV - CD4 377 11/29/22, RNA undetectable 06/02/23; -continue Biktary Chest pain d/t rib fracture--pain meds PRN HTN--not able to take meds at this time, if needed would give IV meds Moderate protein calorie malnutrition--Supplement when able to take PO Full code DVT--Lovenox need for inpatient: at least 2 midnights for management of dysphagia, odynophagia not able to eat or take meds, on IVF and meds, Gi eval, may need peg if not improving Quality Stroke Does the patient have a stroke diagnosis?: No VTE Prior VTE?: No VTE Risk Level:: Medical - moderate - high VTE Device Contraindication: N/A - Device Ordered VTE Drug Contraindication: N/A - Med Ordered
[2023-07-27] MEDS: Enoxaparin Sodium 40 MG/0.4 ML SYRINGE SUBCUT (16:55)
[2023-07-27] MEDS: Calcium + Vitamin D 250 MG TABLET 500 MG PO (21:35)
[2023-07-27] MEDS: risperiDONE 3 MG TABLET PO (21:36)
[2023-07-27] MEDS: Mirtazapine 30 MG TABLET 60 MG PO (21:36)
[2023-07-27] MEDS: diphenhydrAMINE HCL 25 MG CAPSULE 50 MG PO (21:36)
[2023-07-27] MEDS: Gabapentin 600 MG TABLET PO (21:37)
--- NOTE | 2023-07-27 22:23 | PC.NURSE ---
Attempted to call report, RN unavailable.
--- NOTE | 2023-07-27 22:25 | PC.NURSE ---
Assumed care of patient at approximately 1900. PT alert and oriented X4, resting in bed. Pt denies any pain and refused lidocaine patch at this time. LR running at 100ml/hr through #20 R-forearm. Pt took meds whole with nectar thick liquids, tolerated well.
[2023-07-28] VITALS (7 sets, daily range): BP systolic 116–146; BP diastolic 75–84; PULSE 57–85; RESP 14–18; TEMP 36.1–37.1; O2SAT 91–98
[2023-07-28 00:23] LABS: Troponin-I High Sensitivity < 2.7 ng/L (<3.5-35.0)
[2023-07-28] MEDS: traMADoL HCL 50 MG TABLET 25 MG PO ×2 (00:25→09:27)
[2023-07-28] MEDS: Ketorolac Tromethamine 30 MG/ML VIAL IVPUSH (00:25)
[2023-07-28 05:54] LABS: Anion Gap 11 (12-20); Blood Urea Nitrogen 13 mg/dL (9-16); Calcium 9.4 mg/dL (8.4-10.2); Carbon Dioxide 28 mmol/L (22-29); Chloride 106 mmol/L (96-108); Creatinine Clr Calc Pharmacy 58.7; Estimated Glomerular Filt Rate > 60; Glucose Random 84 mg/dL (60-115); Potassium 4.4 mmol/L (3.3-5.1); Sodium 141 mmol/L (135-145)
--- NOTE | 2023-07-28 07:13 | PC.NURSE ---
Patient admitted to S3 from ED overflow 23:00 07/27. Iraqi speaking primarily; air sampler used for admission and assessments. A&Ox4. Denies vision changes, headache, dizziness. Speech is clear. +perrl 4mm brisk. conjugate gaze. Smile symmetrical. Tongue midline. Speech is raspy, here for dysphagia with recent EGD on 07/[address] Dodson with white spots seen in upper esophagus per report review. Pt on diflucan. Pt c/o chest pain since yesterday night . Describes pain as intermittent, sharp, and worse with cough. Covering Dr. Ji notified, EKG and trops obtained. EKG showing NSR with incomplete RT BBB. Trop was <2.7. Pt medicated with 1x toradol and prn ultram with +effect; denies further chest pain. Pt observed resting in bed with even and unlabored breathing. +pp/cms. -edema. Lungs clear/dim throughout. On RA. Spo2 mid 90's. Breathing is even and unlabored without distress. Pt reported to this magnetic tape typewriter operator he had part of his left lung removed in January of this year. Denies SOB. Abd soft, non-tender. +BSX4. Denies n/v. Pt has hx dysphagia, pt reports x3 months. Orders in place for pureed diet with nectar thick liquids. Pt was able to swallow ultram in pudding though was unable to hold nectar thickened liquid in his mouth and it dribbled out onto him. Dr. Ji notified and pt made NPO. Aspiration precautions in place. IV fluids infusing as ordered. Pt denies acute issues with urinating. Urinal provided. Skin color WNL for ethnicity. Pt refusing to remove his sweatpants, unable to visualize buttocks and skin on BLE. Denies open areas on skin. Pt deconditioned, moderately weak. Pt reports fall one month ago, tripped over something . High falls risk measures in place. Handoff report given 06:45.
[2023-07-28] MEDS: Calcium + Vitamin D 250 MG TABLET 500 MG PO ×2 (10:52→20:57)
[2023-07-28] MEDS: Lactated Ringers 1,000 ML 100 ML IVCONT ×2 (10:52→21:12)
[2023-07-28] MEDS: Bictegrav/Emtricit/Tenofov Ala TABLET 1 TAB PO (10:52)
[2023-07-28] MEDS: amLODIPine Besylate 5 MG TABLET PO (10:52)
[2023-07-28] MEDS: clonazePAM 1 MG TABLET PO (10:53)
[2023-07-28] MEDS: Nystatin Oral Susp 500,000 UNIT/5 ML ORAL.SUSP 500000 UNIT PO ×4 (10:53→20:57)
[2023-07-28] MEDS: Pantoprazole Sodium 40 MG/10 ML VIAL IVPUSH (10:53)
[2023-07-28] MEDS: Gabapentin 600 MG TABLET PO ×3 (10:53→20:58)
--- NOTE | 2023-07-28 11:10 | P.PNIM_ITS ---
Subjective Subjective Date of Service: 07/28/23 Interval History: po intake low oral thrush Review of Systems no fever or abd pain no new c/o Physical Exam 2 Vital Signs: Vital Signs: Last Vital Signs Temp 97.0 F 07/28/23 07:42 Pulse 59 07/28/23 10:33 Resp 18 07/28/23 07:42 BP 131/75 07/28/23 10:33 Pulse Ox 95 07/28/23 07:42 O2 Del Method Room Air 07/28/23 07:42 BMI result Body Mass Index 16.0 Appearance: Alert.? Oriented X3.? not in distress.ch sick,genenalised weak. oral mucousa dry, has oral thrush cvs: rrr, [id number] . res: clear to auscultation ,no rhonchii or wheezing abd: no rebound or guarding ,nt, bs present. ext pulses present , no cyanosis . neuro: axo3 , nonfocal Objective Data Active Medications Albuterol Sulfate (Albuterol Sulfate 90 Mcg 8 Gm Inhaler) 2 puff INHALE Q6H PRN PRN Reason: wheezing Albuterol/Ipratropium (Albuterol/Iprat 2.5/0.5mg 3 Ml Ampul.Neb) 3 ml INHALE Q4H [facility] Last Admin: 07/28/23 11:09 Dose: Not Given Documented By: NEFTALY Non-Admin Reason: not clin indicated, aware..asked for DC Amlodipine Besylate (Amlodipine Besylate 5 Mg Tablet) 5 mg PO DAILY [facility]; Protocol Bictegravir/Emtricitabine/Tenofovir (Bictegrav/Emtricit/Tenofov Ala Tablet) 1 tab PO DAILY [facility] Brimonidine Tartrate (Brimonidine Tartrate 0.2% Oph 5 Ml Bottle) 1 drop EYE- BOTH BID [facility] Last Admin: 07/27/23 22:05 Dose: Not Given Documented By: PATRICIA Non-Admin Reason: Med Not Available Calcium Carbonate/Cholecalciferol (Calcium + Vitamin D 250 Mg Tablet) 500 mg PO BID [facility] Last Admin: 07/27/23 21:35 Dose: 500 mg Documented By: PATRICIA Clonazepam (Clonazepam 1 Mg Tablet) 1 mg PO DAILY [facility] Diphenhydramine HCl (Diphenhydramine Hcl 25 Mg Capsule) 50 mg PO BEDTIME [facility] Last Admin: 07/27/23 21:36 Dose: 50 mg Documented By: PATRICIA Enoxaparin Sodium (Enoxaparin Sodium 40 Mg/0.4 Ml Syringe) 40 mg SUBCUT Q24H [facility] Last Admin: 07/27/23 16:55 Dose: 40 mg Documented By: SAY Ferrous Sulfate (Ferrous Sulfate 324 Mg Tablet.Dr) 324 mg PO DAILY [facility] Fluticasone/Vilanterol (Fluticasone/Vilanterol 200/25 Blst.W.Dev) 1 puff INHALE RDAILY [facility] Last Admin: 07/28/23 08:52 Dose: Not Given Documented By: RAYRAY Non-Admin Reason: pharmacy called Gabapentin (Gabapentin 600 Mg Tablet) 600 mg PO TID [facility] Last Admin: 07/27/23 21:37 Dose: 600 mg Documented By: PATRICIA Guaifenesin (Guaifenesin 200 Mg/10 Ml 10 Ml Liquid) 10 ml PO Q6H PRN PRN Reason: Cough Lactated Ringer's (Lr) 1,000 mls @ 100 mls/hr IVCONT .Q10H [facility] Last Admin: 07/27/23 23:38 Dose: 100 mls/hr Documented By: CHRISTIANO Fluconazole 100 mg/ IV (Miscellaneous Supplies) 50 mls @ 50 mls/hr IV Q24H [facility] Last Infusion: 07/27/23 14:25 Dose: Infused Documented By: ANNIE Latanoprost (Latanoprost 0.005 % Ophth Carol 2.5 Ml Drops) 1 drop EYE-BOTH DAILY [facility] Lidocaine (Lidocaine 4 % Patch Adh..Patch) 1 patch TRANSDERMA DAILY@1999 [facility]; Protocol Last Admin: 07/27/23 21:36 Dose: Not Given Documented By: PATRICIA Non-Admin Reason: Patient Refused Mirtazapine (Mirtazapine 30 Mg Tablet) 60 mg PO BEDTIME [facility] Last Admin: 07/27/23 21:36 Dose: 60 mg Documented By: PATRICIA Nystatin (Nystatin Oral Susp 500,000 Unit/5 Ml Oral.Susp) 500,000 unit PO QID [facility]; Protocol Pantoprazole Sodium (Pantoprazole Sodium 40 Mg/10 Ml Vial) 40 mg IVPUSH DAILY@0630 [facility] Risperidone (Risperidone 3 Mg Tablet) 3 mg PO BEDTIME [facility] Last Admin: 07/27/23 21:36 Dose: 3 mg Documented By: PATRICIA Sodium Chloride (0.9 % Sodium Chloride Flush 3 Ml Syringe) 3 ml IVFLUSH QSHIFT [facility] Last Admin: 07/28/23 09:18 Dose: Not Given Documented By: MICHELLE Non-Admin Reason: IV Running Timolol Maleate (Timolol Maleate 0.5 % Oph Carol 5 Ml Drbtl) 1 drop EYE-BOTH BID [facility] Last Admin: 07/27/23 22:05 Dose: Not Given Documented By: PATRICIA Non-Admin Reason: Med Not Available Tramadol HCl (Tramadol Hcl 50 Mg Tablet) 25 mg PO Q6H PRN PRN Reason: Pain, Mild (Pain Scale 1-3) Last Admin: 07/28/23 09:27 Dose: 25 mg Documented By: MICHELLE Labs 07/27/23 09:42 07/28/23 05:20 Labs: Laboratory Results - last 24 hr 07/27/23 07/28/23 23:47 05:20 Hold Purple Top SEE NOTE SEE NOTE Anion Gap 11 L Estim Creat Clear Calc 58.7 Estimated GFR > 60 Random Glucose 84 Calcium 9.4 Assessment and Plan (1) Adult failure to thrive: Status: Acute (2) Dysphagia: Status: Acute (3) Oral thrush: Status: Acute Plan 58 yo M with HIV [viral load undetectable 06/02/23, CD4 377 11/29/22, mild persistent asthma, history HCV, and history empyema of the lung here with dysphagia and chest pain related to rib fractures From previous admit :Dysphagia etiology, EGD 07/17 few whitish spots in upper esophagus, c/w mild candidiasis normal stomach and duodenum continue IV diflucan. Ivf,added nystatin also ppi Gi eval Diet started per speech recommendation Dec po intake /possible ftt: continue ivf Encouraged for p.o. intake beader eval HIV - CD4 377 11/29/22, RNA undetectable 06/02/23; -continue Biktary Chest pain d/t rib fracture--pain meds PRN HTN--not able to take meds at this time, if needed would give IV meds Moderate protein calorie malnutrition--Supplement when able to take PO Full code DVT--Lovenox need for inpatient: at least 48-72 hrs for management of dysphagia, odynophagia not able to eat or take meds, on IVF and meds, Gi eval Quality Stroke Does the patient have a stroke diagnosis?: No VTE Prior VTE?: No VTE Risk Level:: Medical - moderate - high VTE Device Contraindication: N/A - Device Ordered VTE Drug Contraindication: N/A - Med Ordered
[2023-07-28] MEDS: timoloL maleate 0.5 % Oph Sol 5 ML DRBTL 1 DROP EYE-BOTH ×2 (12:52→20:59)
[2023-07-28] MEDS: Latanoprost 0.005 % Ophth Sol 2.5 ML DROPS 1 DROP EYE-BOTH (12:52)
[2023-07-28] MEDS: Brimonidine Tartrate 0.2% Oph 5 ML BOTTLE 1 DROP EYE-BOTH ×2 (12:52→20:57)
[2023-07-28] MEDS: Fluconazole in NaCl,Iso-Osm 100 MG in Container,Empty 0 ML 50 MG IV (12:58)
[2023-07-28] MEDS: 0.9 % Sodium Chloride Flush 3 ML SYRINGE IVFLUSH (17:31)
[2023-07-28] MEDS: Enoxaparin Sodium 40 MG/0.4 ML SYRINGE SUBCUT (17:31)
--- NOTE | 2023-07-28 19:00 | MHC.SHP ---
Pre-Procedural Eval Section A Date of Service: 07/30/23 The patient is an INPATIENT: Yes The History & Physical has been completed within 30 days and I have reviewed it.: Yes Section B Chief Complaint: Dehydration failure to thrive dysphagia Allergies: Allergies Allergy/AdvReac Type Severity Reaction Status Date / Time Seasonal Allergies Allergy Intermediate Eye Verified 07/20/23 12:48 Drainage codeine Allergy Mild Rash Verified 07/20/23 12:48 [From Tylenol-Codeine #3] levofloxacin [From Levaquin] Allergy Mild Rash Verified 07/20/23 12:48 metoclopramide [From Reglan] Allergy Mild Rash Verified 07/20/23 12:48 acetaminophen Allergy Unknown Unknown Verified 07/20/23 12:48 [Tylenol-Codeine #3] Penicillins [PENICILLINS] Allergy Unknown Rash Verified 07/20/23 12:48 ibuprofen [From Motrin] AdvReac Unknown Reflux Verified 07/20/23 12:48 Plan I have reviewed the history and physical and performed a pertinent physical examination on my patient. No changes have occurred unless specified. Time Spent With Patient Time: Total time managing care of this patient today ____ minutes.
--- NOTE | 2023-07-28 19:00 | PM.EVENT ---
Event Note Date of Service: 07/28/23 Event Note: GI Consult-Full note dictated Imp/Recs: Ongoing dysphagia, anorexia, and malnutrition. He had an essentially negative upper endo earlier this month. Speech and Swallowing evaluations have documented significant problems and limitations with his ability to manage his po nutritional needs. Therefore, at his and the medical team's request, an Upper Endo with PEG placement will be planned for Sunday or Sunday with me or Dr. Dodson. Full consent has been obtained for that, including risks of bleeding, perforation, infection, aspiration, and tube malfunction. Will hold Lovenox for prior to and post-procedure. The patient agrees with this plan. Thanks Time Spent With Patient Time: Total time managing care of this patient today ____ minutes.
[2023-07-28] MEDS: Albuterol/Iprat 2.5/0.5MG 3 ML AMPUL.NEB INHALE (20:30)
[2023-07-28] MEDS: Lidocaine 4 % Patch ADH..PATCH 1 PATCH TRANSDERMA (20:54)
[2023-07-28] MEDS: diphenhydrAMINE HCL 25 MG CAPSULE 50 MG PO (20:57)
[2023-07-28] MEDS: Mirtazapine 30 MG TABLET 60 MG PO (20:57)
[2023-07-28] MEDS: risperiDONE 3 MG TABLET PO (20:57)
--- NOTE | 2023-07-29 01:20 | CONS_ITS ---
DATE OF SERVICE: 07/28/2023 REASON FOR CONSULTATION: Dysphagia, anorexia, and malnutrition. HISTORY OF PRESENT ILLNESS: The patient is a 58-year-old male who has had persistent and progressive problems with his ability to maintain adequate and safe oral nutritional intake. He has had what he describes as both dysphagia and some odynophagia. He describes that he would like to eat, but simply has difficulty in doing that. He has had speech and swallow evaluations documenting his difficulty with eating both safely and adequately. He has been recommended to stay on a pureed diet due to these difficulties. He did undergo an upper endoscopy on July [address] Dodson due to his upper GI complaints. The exam revealed a question of some esophageal candidiasis, but no other significant abnormalities. He was treated with Diflucan, although biopsies at the time of the endoscopy were negative for candidiasis. There was some nonspecific inflammation noted. Duodenal biopsies were negative for celiac disease and gastric biopsies were negative for H. pylori. The patient went home about a week ago, but comes in yesterday due to his difficulty maintaining intake and requesting a placement of a G-tube to help with his nutrition. CURRENT MEDICATIONS: Include eyedrops, clonazepam, diphenhydramine, Lovenox, iron, fluconazole, gabapentin, Breo inhaler, lidocaine patch, nystatin oral suspension, IV pantoprazole, risperidone, and tramadol. PAST MEDICAL HISTORY: HIV infection, asthma, empyema of the lung, fractured leg, kidney stones, pneumonia, depression, asthma, and hemorrhoid surgery. SOCIAL HISTORY: He denies significant alcohol intake. He does not smoke presently. He lives with his sister. REVIEW OF SYSTEMS: CONSTITUTIONAL: He has been feeling poorly in regard to his difficulty eating and weakness. CARDIAC: No chest pain. PULMONARY: No coughing or hemoptysis. GI: As above. He denies any diarrhea nor any signs of bleeding. He denies any jaundice. No abdominal pain. URINARY: No dysuria. No hematuria. NEUROLOGIC: No headache or seizures. PHYSICAL EXAMINATION: GENERAL: The patient is a thin, chronically ill appearing male. SKIN: Warm and dry. HEENT: Anicteric sclerae. NECK: Supple. ABDOMEN: Soft, nondistended, and nontender without mass. CARDIAC: Normal S1, S2. LABORATORY DATA: White blood cell count 3.1, hemoglobin 13.3, and platelets 176,000. Normal electrolytes. BUN 13 and creatinine 0.9. LFTs normal. IMAGING DATA: Chest x-ray yesterday describes no acute abnormality. IMPRESSION: Given the patient's ongoing issues with both inability to eat adequately and inability to eat safely as per the speech and swallowing evaluation, I would agree with nutritional support as he and the medical team have requested. I did review placement of a PEG with the patient in detail, including risks of potential bleeding, perforation, infection, tube malfunction and aspiration. Consent has been obtained from him for this. Orders have been placed to hold the Lovenox for the evening prior to and for 48 hours after the procedure. The patient is agreeable to the plan. Thank you for the consultation. MD CASSIE Dos Santos/DEVORA / [phone] MTDD
[2023-07-29 03:52] VITALS: BP 133/80; PULSE 57; RESP 18; TEMP 36.5; O2SAT 94
[2023-07-29 07:41] VITALS: BP 138/87; PULSE 61; RESP 16; TEMP 36.4; O2SAT 94
[2023-07-29] MEDS: Lactated Ringers 1,000 ML 100 ML IVCONT (09:01)
[2023-07-29] MEDS: Pantoprazole Sodium 40 MG/10 ML VIAL IVPUSH (09:02)
[2023-07-29] MEDS: Bictegrav/Emtricit/Tenofov Ala TABLET 1 TAB PO (09:02)
[2023-07-29] MEDS: clonazePAM 1 MG TABLET PO (09:02)
[2023-07-29] MEDS: amLODIPine Besylate 5 MG TABLET PO (09:02)
[2023-07-29] MEDS: Nystatin Oral Susp 500,000 UNIT/5 ML ORAL.SUSP 500000 UNIT PO ×4 (09:02→20:27)
[2023-07-29] MEDS: 0.9 % Sodium Chloride Flush 3 ML SYRINGE IVFLUSH ×2 (09:02→17:22)
[2023-07-29] MEDS: Ferrous Sulfate 324 MG TABLET.DR PO (09:02)
[2023-07-29] MEDS: Gabapentin 600 MG TABLET PO ×3 (09:02→20:27)
[2023-07-29] MEDS: Calcium + Vitamin D 250 MG TABLET 500 MG PO ×2 (09:02→20:28)
[2023-07-29] MEDS: Latanoprost 0.005 % Ophth Sol 2.5 ML DROPS 1 DROP EYE-BOTH (09:03)
[2023-07-29] MEDS: timoloL maleate 0.5 % Oph Sol 5 ML DRBTL 1 DROP EYE-BOTH ×2 (09:03→20:29)
[2023-07-29] MEDS: Brimonidine Tartrate 0.2% Oph 5 ML BOTTLE 1 DROP EYE-BOTH ×2 (09:03→20:28)
--- NOTE | 2023-07-29 09:11 | P.PNIM_ITS ---
Subjective Subjective Date of Service: 07/29/23 Interval History: po intake low ,oral thrush Review of Systems no fever or abd pain po intake slowly improving Physical Exam 2 Vital Signs: Vital Signs: Last Vital Signs Temp 97.6 F 07/29/23 07:41 Pulse 61 07/29/23 07:41 Resp 16 07/29/23 07:41 BP 138/87 07/29/23 07:41 Pulse Ox 94 07/29/23 07:41 O2 Del Method Room Air 07/29/23 07:41 BMI result Body Mass Index 16.0 Appearance: Alert.? Oriented X3.? not in distress.ch sick,genenalised weak. oral mucousa dry, has oral thrush cvs: rrr, [id number] . res: clear to auscultation ,no rhonchii or wheezing abd: no rebound or guarding ,nt, bs present. ext pulses present , no cyanosis . neuro: axo3 , nonfocal Objective Data Active Medications Albuterol Sulfate (Albuterol Sulfate 90 Mcg 8 Gm Inhaler) 2 puff INHALE Q6H PRN PRN Reason: wheezing Albuterol/Ipratropium (Albuterol/Iprat 2.5/0.5mg 3 Ml Ampul.Neb) 3 ml INHALE Q4H [facility] Last Admin: 07/29/23 08:11 Dose: Not Given Documented By: ANITHA Non-Admin Reason: Patient Refused Amlodipine Besylate (Amlodipine Besylate 5 Mg Tablet) 5 mg PO DAILY [facility]; Protocol Last Admin: 07/29/23 09:02 Dose: 5 mg Documented By: BRANDON Bictegravir/Emtricitabine/Tenofovir (Bictegrav/Emtricit/Tenofov Ala Tablet) 1 tab PO DAILY [facility] Last Admin: 07/29/23 09:02 Dose: 1 tab Documented By: BRANDON Brimonidine Tartrate (Brimonidine Tartrate 0.2% Oph 5 Ml Bottle) 1 drop EYE- BOTH BID [facility] Last Admin: 07/29/23 09:03 Dose: 1 drop Documented By: BRANDON Calcium Carbonate/Cholecalciferol (Calcium + Vitamin D 250 Mg Tablet) 500 mg PO BID [facility] Last Admin: 07/29/23 09:02 Dose: 500 mg Documented By: BRANDON Clonazepam (Clonazepam 1 Mg Tablet) 1 mg PO DAILY [facility] Last Admin: 07/29/23 09:02 Dose: 1 mg Documented By: BRANDON Diphenhydramine HCl (Diphenhydramine Hcl 25 Mg Capsule) 50 mg PO BEDTIME [facility] Last Admin: 07/28/23 20:57 Dose: 50 mg Documented By: RAJI Enoxaparin Sodium (Enoxaparin Sodium 40 Mg/0.4 Ml Syringe) 40 mg SUBCUT Q24H [facility] Last Admin: 07/28/23 17:31 Dose: 40 mg Documented By: RAJI Ferrous Sulfate (Ferrous Sulfate 324 Mg Tablet.Dr) 324 mg PO DAILY [facility] Last Admin: 07/29/23 09:02 Dose: 324 mg Documented By: BRANDON Fluticasone/Vilanterol (Fluticasone/Vilanterol 200/25 Blst.W.Dev) 1 puff INHALE RDAILY [facility] Last Admin: 07/29/23 08:11 Dose: Not Given Documented By: ANITHA Non-Admin Reason: Patient Refused Gabapentin (Gabapentin 600 Mg Tablet) 600 mg PO TID [facility] Last Admin: 07/29/23 09:02 Dose: 600 mg Documented By: BRANDON Guaifenesin (Guaifenesin 200 Mg/10 Ml 10 Ml Liquid) 10 ml PO Q6H PRN PRN Reason: Cough Lactated Ringer's (Lr) 1,000 mls @ 100 mls/hr IVCONT .Q10H [facility] Last Admin: 07/29/23 09:01 Dose: 100 mls/hr Documented By: BRANDON Fluconazole 100 mg/ IV (Miscellaneous Supplies) 50 mls @ 50 mls/hr IV Q24H [facility] Last Infusion: 07/28/23 14:07 Dose: Infused Documented By: ADAN-GREGJ Cefazolin Sodium 1 gm/ Sodium (Chloride) 50 mls @ 100 mls/hr IV PREOP ONE Stop: 07/30/23 09:29 Latanoprost (Latanoprost 0.005 % Ophth Carol 2.5 Ml Drops) 1 drop EYE-BOTH DAILY [facility] Last Admin: 07/29/23 09:03 Dose: 1 drop Documented By: BRANDON Lidocaine (Lidocaine 4 % Patch Adh..Patch) 1 patch TRANSDERMA DAILY@1999 [facility]; Protocol Last Admin: 07/28/23 20:54 Dose: 1 patch Documented By: RAJI Mirtazapine (Mirtazapine 30 Mg Tablet) 60 mg PO BEDTIME [facility] Last Admin: 07/28/23 20:57 Dose: 60 mg Documented By: RAJI Nystatin (Nystatin Oral Susp 500,000 Unit/5 Ml Oral.Susp) 500,000 unit PO QID [facility]; Protocol Last Admin: 07/29/23 09:02 Dose: 500,000 unit Documented By: BRANDON Pantoprazole Sodium (Pantoprazole Sodium 40 Mg/10 Ml Vial) 40 mg IVPUSH DAILY@0630 [facility] Last Admin: 07/29/23 09:02 Dose: 40 mg Documented By: BRANDON Risperidone (Risperidone 3 Mg Tablet) 3 mg PO BEDTIME [facility] Last Admin: 07/28/23 20:57 Dose: 3 mg Documented By: RAJI Sodium Chloride (0.9 % Sodium Chloride Flush 3 Ml Syringe) 3 ml IVFLUSH QSHIFT [facility] Last Admin: 07/29/23 09:02 Dose: 3 ml Documented By: BRANDON Timolol Maleate (Timolol Maleate 0.5 % Oph Carol 5 Ml Drbtl) 1 drop EYE-BOTH BID [facility] Last Admin: 07/29/23 09:03 Dose: 1 drop Documented By: BRANDON Tramadol HCl (Tramadol Hcl 50 Mg Tablet) 25 mg PO Q6H PRN PRN Reason: Pain, Mild (Pain Scale 1-3) Last Admin: 07/28/23 09:27 Dose: 25 mg Documented By: MICHELLE Labs 07/27/23 09:42 07/28/23 05:20 Assessment and Plan (1) Oral thrush: Status: Acute (2) Adult failure to thrive: Status: Acute Plan 58 yo M with HIV [viral load undetectable 06/02/23, CD4 377 11/29/22, mild persistent asthma, history HCV, and history empyema of the lung here with dysphagia and chest pain related to rib fractures From previous admit :Dysphagia etiology, EGD 07/17 few whitish spots in upper esophagus, c/w mild candidiasis normal stomach and duodenum Gi eval noted -continue above management-continue IV diflucan,ppi, Ivf, nystatin also Diet started per speech recommendation Dec po intake /possible ftt: continue ivf 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 HIV - CD4 377 11/29/22, RNA undetectable 06/02/23; -continue Biktary Chest pain d/t rib fracture--pain meds PRN HTN--not able to take meds at this time, if needed would give IV meds Moderate protein calorie malnutrition--Supplement when able to take PO Full code DVT--Lovenox need for inpatient: ongoing hospitlisation need: management of dysphagia, odynophagia not able to eat or take meds, on IVF and meds, Gi eval Quality Stroke Does the patient have a stroke diagnosis?: No VTE Prior VTE?: No VTE Risk Level:: Medical - moderate - high VTE Device Contraindication: N/A - Device Ordered VTE Drug Contraindication: N/A - Med Ordered
--- NOTE | 2023-07-29 10:04 | MHC.CM.PN ---
CM MET WITH PT WITH THE ASSISTANCE OF A CATALOGUE CLERK PT REPORTS HE LIVES WITH HIS SISTER AND HAS DAILY [employer] HE STATES HE HAS A WALKER BUT HAS NOT BEEN NEEDING TO USE IT RECENTLY HE SAYS HE NO LONGER HAS A VNA HCP ON FILE PCP: RICHARD CHAVEZ IMM DELIVERED DCP: HOME RESUME [employer] PT WILL NEED SHUTTLE TRANSPORT
[2023-07-29] MEDS: Fluconazole in NaCl,Iso-Osm 100 MG in Container,Empty 0 ML 50 MG IV (13:48)
[2023-07-29] MEDS: traMADoL HCL 50 MG TABLET 25 MG PO (14:02)
[2023-07-29 15:54] VITALS: BP 127/80; PULSE 67; RESP 18; TEMP 36.1; O2SAT 92
[2023-07-29] MEDS: Enoxaparin Sodium 40 MG/0.4 ML SYRINGE SUBCUT (17:22)
[2023-07-29] MEDS: Dextrose 5 % and 0.9 % NaCl 1,000 ML 80 ML IVCONT (17:38)
[2023-07-29 18:19] LABS: INTERNATIONAL NORM RATIO 1.1 (0.9-1.1); Prothrombin Time 13.8 SEC (11.1-13.3)
[2023-07-29 19:21] VITALS: BP 112/70; PULSE 66; RESP 18; TEMP 36.1; O2SAT 93
[2023-07-29] MEDS: risperiDONE 3 MG TABLET PO (20:27)
[2023-07-29] MEDS: diphenhydrAMINE HCL 25 MG CAPSULE 50 MG PO (20:27)
[2023-07-29] MEDS: Mirtazapine 30 MG TABLET 60 MG PO (20:27)
[2023-07-29] MEDS: Lidocaine 4 % Patch ADH..PATCH 1 PATCH TRANSDERMA (20:28)
[2023-07-29 20:55] VITALS: PULSE 66; RESP 18; O2SAT 93
[2023-07-29] MEDS: Albuterol/Iprat 2.5/0.5MG 3 ML AMPUL.NEB INHALE (20:55)
[2023-07-30] VITALS (11 sets, daily range): BP systolic 110–164; BP diastolic 63–92; PULSE 53–76; RESP 12–18; TEMP 36–37.2; O2SAT 91–97
[2023-07-30] MEDS: Pantoprazole Sodium 40 MG/10 ML VIAL IVPUSH (05:47)
[2023-07-30] MEDS: Dextrose 5 % and 0.9 % NaCl 1,000 ML 80 ML IVCONT ×2 (05:49→20:44)
[2023-07-30 07:42] LABS: Anion Gap 12 (12-20); Blood Urea Nitrogen 8 mg/dL (9-16); Calcium 8.8 mg/dL (8.4-10.2); Carbon Dioxide 26 mmol/L (22-29); Chloride 107 mmol/L (96-108); Creatinine Clr Calc Pharmacy 65.6; Estimated Glomerular Filt Rate > 60; Glucose Random 95 mg/dL (60-115); Potassium 3.8 mmol/L (3.3-5.1); Sodium 141 mmol/L (135-145)
--- NOTE | 2023-07-30 09:18 | MHC.SLORD ---
Speech Language Pathology Order Status: Per MD, pt is almost FTT, NPO as he scheduled for PEG today. STAKER SURVEYING will continue to follow, BDE deferred.
--- NOTE | 2023-07-30 09:49 | P.PNIM_ITS ---
Subjective Subjective Date of Service: 07/30/23 Interval History: dyspahgia ,malnutrition,unable to take much po Review of Systems no fever or abd pain po intake is still very low oral thrush imrpoving Physical Exam 2 Vital Signs: Vital Signs: Last Vital Signs Temp 97.4 F 07/30/23 07:38 Pulse 59 07/30/23 07:38 Resp 12 07/30/23 07:38 BP 147/82 H 07/30/23 07:38 Pulse Ox 96 07/30/23 07:38 O2 Del Method Room Air 07/30/23 07:38 BMI result Body Mass Index 16.0 Appearance: Alert.? Oriented X3.? not in distress.ch sick,genenalised weak. oral mucousa dry, has oral thrush cvs: rrr, [id number] . res: clear to auscultation ,no rhonchii or wheezing abd: no rebound or guarding ,nt, bs present. ext pulses present , no cyanosis . neuro: axo3 , nonfocal Objective Data Active Medications Albuterol Sulfate (Albuterol Sulfate 90 Mcg 8 Gm Inhaler) 2 puff INHALE Q6H PRN PRN Reason: wheezing Albuterol/Ipratropium (Albuterol/Iprat 2.5/0.5mg 3 Ml Ampul.Neb) 3 ml INHALE Q4H [facility] Last Admin: 07/30/23 07:47 Dose: Not Given Documented By: RAYRAY Non-Admin Reason: not clin ind. aware Amlodipine Besylate (Amlodipine Besylate 5 Mg Tablet) 5 mg PO DAILY [facility]; Protocol Last Admin: 07/29/23 09:02 Dose: 5 mg Documented By: BRANDON Bictegravir/Emtricitabine/Tenofovir (Bictegrav/Emtricit/Tenofov Ala Tablet) 1 tab PO DAILY [facility] Last Admin: 07/29/23 09:02 Dose: 1 tab Documented By: BRANDON Brimonidine Tartrate (Brimonidine Tartrate 0.2% Oph 5 Ml Bottle) 1 drop EYE- BOTH BID [facility] Last Admin: 07/29/23 20:28 Dose: 1 drop Documented By: RAJI Calcium Carbonate/Cholecalciferol (Calcium + Vitamin D 250 Mg Tablet) 500 mg PO BID [facility] Last Admin: 07/29/23 20:28 Dose: 500 mg Documented By: RAJI Clonazepam (Clonazepam 1 Mg Tablet) 1 mg PO DAILY [facility] Last Admin: 07/29/23 09:02 Dose: 1 mg Documented By: BRANDON Diphenhydramine HCl (Diphenhydramine Hcl 25 Mg Capsule) 50 mg PO BEDTIME [facility] Last Admin: 07/29/23 20:27 Dose: 50 mg Documented By: RAJI Enoxaparin Sodium (Enoxaparin Sodium 40 Mg/0.4 Ml Syringe) 40 mg SUBCUT Q24H [facility] Last Admin: 07/29/23 17:22 Dose: 40 mg Documented By: RAJI Ferrous Sulfate (Ferrous Sulfate 324 Mg Tablet.Dr) 324 mg PO DAILY [facility] Last Admin: 07/29/23 09:02 Dose: 324 mg Documented By: BRANDON Fluticasone/Vilanterol (Fluticasone/Vilanterol 200/25 Blst.W.Dev) 1 puff INHALE RDAILY [facility] Last Admin: 07/30/23 07:47 Dose: Not Given Documented By: RAYRAY Non-Admin Reason: Patient Refused Gabapentin (Gabapentin 600 Mg Tablet) 600 mg PO TID [facility] Last Admin: 07/29/23 20:27 Dose: 600 mg Documented By: RAJI Guaifenesin (Guaifenesin 200 Mg/10 Ml 10 Ml Liquid) 10 ml PO Q6H PRN PRN Reason: Cough Fluconazole 100 mg/ IV (Miscellaneous Supplies) 50 mls @ 50 mls/hr IV Q24H [facility] Last Infusion: 07/29/23 15:19 Dose: Infused Documented By: BRANDON Dextrose/Sodium Chloride (D5ns) 1,000 mls @ 80 mls/hr IVCONT .[id number] [facility] Last Admin: 07/30/23 05:49 Dose: 80 mls/hr Documented By: CLAUDIO Latanoprost (Latanoprost 0.005 % Ophth Carol 2.5 Ml Drops) 1 drop EYE-BOTH DAILY [facility] Last Admin: 07/29/23 09:03 Dose: 1 drop Documented By: BRANDON Lidocaine (Lidocaine 4 % Patch Adh..Patch) 1 patch TRANSDERMA DAILY@1999 [facility]; Protocol Last Admin: 07/29/23 20:28 Dose: 1 patch Documented By: RAJI Mirtazapine (Mirtazapine 30 Mg Tablet) 60 mg PO BEDTIME [facility] Last Admin: 07/29/23 20:27 Dose: 60 mg Documented By: RAJI Nystatin (Nystatin Oral Susp 500,000 Unit/5 Ml Oral.Susp) 500,000 unit PO QID [facility]; Protocol Last Admin: 07/29/23 20:27 Dose: 500,000 unit Documented By: RAJI Pantoprazole Sodium (Pantoprazole Sodium 40 Mg/10 Ml Vial) 40 mg IVPUSH DAILY@0630 [facility] Last Admin: 07/30/23 05:47 Dose: 40 mg Documented By: CLAUDIO Risperidone (Risperidone 3 Mg Tablet) 3 mg PO BEDTIME [facility] Last Admin: 07/29/23 20:27 Dose: 3 mg Documented By: RAJI Sodium Chloride (0.9 % Sodium Chloride Flush 3 Ml Syringe) 3 ml IVFLUSH QSHIFT [facility] Last Admin: 07/30/23 00:51 Dose: Not Given Documented By: CLAUDIO Non-Admin Reason: IV Running Timolol Maleate (Timolol Maleate 0.5 % Oph Carol 5 Ml Drbtl) 1 drop EYE-BOTH BID [facility] Last Admin: 07/29/23 20:29 Dose: 1 drop Documented By: RAJI Tramadol HCl (Tramadol Hcl 50 Mg Tablet) 25 mg PO Q6H PRN PRN Reason: Pain, Mild (Pain Scale 1-3) Last Admin: 07/29/23 14:02 Dose: 25 mg Documented By: BRANDON Labs 07/27/23 09:42 07/30/23 06:20 Labs: Laboratory Results - last 24 hr 07/29/23 07/30/23 07/30/23 18:05 06:20 06:30 Hold Purple Top SEE NOTE PT 13.8 H INR 1.1 Anion Gap 12 Estim Creat Clear Calc 65.6 Estimated GFR > 60 Random Glucose 95 Calcium 8.8 D Assessment and Plan (1) Oral thrush: Status: Acute (2) Adult failure to thrive: Status: Acute (3) Dysphagia: Status: Acute Plan 58 yo M with HIV [viral load undetectable 06/02/23, CD4 377 11/29/22, mild persistent asthma, history HCV, and history empyema of the lung here with dysphagia and chest pain related to rib fractures From previous admit :Dysphagia etiology, EGD 07/17 few whitish spots in upper esophagus, c/w mild candidiasis normal stomach and duodenum Gi eval noted -continue above management-continue IV diflucan,ppi, Ivf, nystatin also Due to dysphagia, severe malnutrition, impending failure to thrive in able to take in a food-patient seen by GI and going for PEG tube. Speech and Swallow following HIV - CD4 377 11/29/22, RNA undetectable 06/02/23; -continue Biktary Chest pain d/t rib fracture--pain meds PRN HTN--not able to take meds at this time, if needed would give IV meds Moderate protein calorie malnutrition--Supplement when able to take PO Full code DVT--Lovenox need for inpatient: ongoing hospitlisation need: management of dysphagia, odynophagia not able to eat or take meds, on IVF and meds, possible PEG tube placement. Quality Stroke Does the patient have a stroke diagnosis?: No VTE Prior VTE?: No VTE Risk Level:: Medical - moderate - high VTE Device Contraindication: N/A - Device Ordered VTE Drug Contraindication: N/A - Med Ordered
[2023-07-30] MEDS: Morphine Sulfate 2 MG/ML CARTRIDGE IVPUSH ×2 (09:54→15:13)
[2023-07-30] MEDS: Brimonidine Tartrate 0.2% Oph 5 ML BOTTLE 1 DROP EYE-BOTH ×2 (09:57→20:44)
[2023-07-30] MEDS: timoloL maleate 0.5 % Oph Sol 5 ML DRBTL 1 DROP EYE-BOTH ×2 (09:57→20:45)
[2023-07-30] MEDS: Latanoprost 0.005 % Ophth Sol 2.5 ML DROPS 1 DROP EYE-BOTH (09:57)
--- NOTE | 2023-07-30 12:19 | P.CDIM_ITS ---
PROVIDER RESPONSE TEXT: To clarify, the appropriate diagnosis supported by the clinical indicators: Severe QUERY TEXT: PHYSICIAN'S DOCUMENTATION REQUEST Date of Query: 07/30/2023 11:32 AM EST Patient Name: Benjamin Fall Admit Date: 07/27/2023 Dear Soraida Amador, A review of the medical record indicates additional documentation may be needed. Please review below and update the documentation accordingly. Documentation includes the diagnosis of malnutrition. Clinical nutrition notes dated 07/27 - Patient is severely malnourished, qualifies for severe malnutrition in the context of chronic illness. Moderately depleted subcutaneous fat and muscle mass with BMI 17 and 15% significant weight loss x 6 months with chronic poor PO intake x 2 weeks. Currently NPO awaiting PEG placement. If possible, please provide additional specificity and consistency of this diagnosis: Moderate Severe Other (explain) Clinically unable to determine (explain) Thank you, Yoko Fuller, CCS, CDIS Use of terms such as suspected, likely, concern for, or probable (associated with a specific diagnosi s that is being evaluated, monitored, or treated as if it exists) are acceptable and can be coded in the inpatient se tting, when documented at the time of discharge. Please use your independent medical judgment in providing your response. THIS QUERY IS PART OF THE PERMANENT MEDICAL RECORD
--- NOTE | 2023-07-30 12:28 | MHC.CM.PN ---
per rounds pt will be ready for dc tues plan remains home no services
--- NOTE | 2023-07-30 13:12 | MHC.CLN ---
F/U PATIENT IS SCHEDULED FOR PEG TUBE PLACEMENT TODAY. CURRENTLY NPO FOR PROCEDURE. WHEN ABLE TO INITIATE TUBE FEEDING, RECOMMEND JEVITY 1.0 AT MAX GOAL RATE 60ML/HR WITH 120ML FREE WATER FLUSHES Q 8 HRS. PROVIDES 1526KCALS (31KCALS/KG), 63.7G PROTEIN (1.3G/KG), 1562ML TOTAL WATER FROM FORMULA AND FLUSHES (32ML/KG). START FORMULA AT 20ML/HR AND INCREASE BY 10ML Q 4 HRS UNTIL MAX GOAL IS ACHIEVED. CHECK RESIDUALS EVERY 4 HOURS, HOLD FOR 2 HOURS IF >250 ML. MONITOR TOLERANCE, RESIDUALS AND LYTES.
[2023-07-30] MEDS: Fluconazole in NaCl,Iso-Osm 100 MG in Container,Empty 0 ML 50 MG IV (14:41)
--- NOTE | 2023-07-30 15:30 | MHC.CM.PN ---
pt may need a feedig tube per rounds
--- NOTE | 2023-07-30 16:55 | PC.NURSE ---
patient transported to OR by OR staff via stretcher,comfortable,oriented at the time of transfer
--- NOTE | 2023-07-30 18:18 | HO.ANESPROP2 ---
HPI - Anesthesia Eval Consult details Narrative: PEG PMFSH Active Problems All Active Problems (Updated 07/28/23 @ 11:12 by Soraida Amador MD) Oral thrush (Acute) Adult failure to thrive (Acute) Dysphagia (Acute) Atypical chest pain (Acute) Empyema lung (Acute) Hepatitis C (Acute) Loculated pleural effusion (Acute) Pneumonia (Acute) Fx shaft fibula-closed (Acute) Fracture of tibial shaft, closed (Acute) Mild persistent asthma with (acute) exacerbation (Acute) Atypical pneumonia (Acute) Asthma with exacerbation (Acute) Abscess of lung (Acute) Abscess of left lung with pneumonia (Acute) Abscess of lower lobe of right lung with pneumonia (Acute) Lung abscess (Acute) Shingles (Acute) Past Medical History Medical History Multiple rib fractures History of empyema of pleura (01/05/23) Hypertension Closed fracture of leg Hepatitis C Kidney stones Pleuritic chest pain Pneumonia Substance abuse Hemorrhoids Depression HIV (human immunodeficiency virus infection) Asthma Family History Family history of problems with anesthesia: No Surgical History Surgical History H/O hemorrhoidectomy History of Problems with Anesthesia: No Social History Social History Household Members: Family Household Members Other:: sister Housing: Apartment Do you presently have visiting nurse or other home services: Yes (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; 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/week ENERGY ASSISTANT) Alcohol intake: never Patient Tobacco Use Status: Former Tobacco user Tobacco use type: Cigarette e-Cigarette/Vaping Use: Never Used Second Hand Smoke Exposure: No Substance Use Type: Crack/Cocaine Advance Directives Date on File: 04/25/21 service: No Current occupational status: disabled Meds Allergies Allergy/AdvReac Type Severity Reaction Status Date / Time Seasonal Allergies Allergy Intermediate Eye Verified 07/20/23 12:48 Drainage codeine Allergy Mild Rash Verified 07/20/23 12:48 [From Tylenol-Codeine #3] levofloxacin [From Levaquin] Allergy Mild Rash Verified 07/20/23 12:48 metoclopramide [From Reglan] Allergy Mild Rash Verified 07/20/23 12:48 acetaminophen Allergy Unknown Unknown Verified 07/20/23 12:48 [Tylenol-Codeine #3] Penicillins [PENICILLINS] Allergy Unknown Rash Verified 07/20/23 12:48 ibuprofen [From Motrin] AdvReac Unknown Reflux Verified 07/20/23 12:48 Active Medications: Current Medications Albuterol Sulfate (Albuterol Sulfate 90 Mcg 8 Gm Inhaler) 2 puff INHALE Q6H PRN PRN Reason: wheezing Albuterol/Ipratropium (Albuterol/Iprat 2.5/0.5mg 3 Ml Ampul.Neb) 3 ml INHALE Q4H [facility] Last Admin: 07/30/23 15:13 Dose: Not Given Amlodipine Besylate (Amlodipine Besylate 5 Mg Tablet) 5 mg PO DAILY [facility]; Protocol Last Admin: 07/30/23 14:48 Dose: Not Given Bictegravir/Emtricitabine/Tenofovir (Bictegrav/Emtricit/Tenofov Ala Tablet) 1 tab PO DAILY [facility] Last Admin: 07/30/23 14:48 Dose: Not Given Brimonidine Tartrate (Brimonidine Tartrate 0.2% Oph 5 Ml Bottle) 1 drop EYE-BOTH BID [facility] Last Admin: 07/30/23 09:57 Dose: 1 drop Calcium Carbonate/Cholecalciferol (Calcium + Vitamin D 250 Mg Tablet) 500 mg PO BID [facility] Last Admin: 07/30/23 10:03 Dose: Not Given Clonazepam (Clonazepam 1 Mg Tablet) 1 mg PO DAILY [facility] Last Admin: 07/30/23 14:48 Dose: Not Given Diphenhydramine HCl (Diphenhydramine Hcl 25 Mg Capsule) 50 mg PO BEDTIME [facility] Last Admin: 07/29/23 20:27 Dose: 50 mg Enoxaparin Sodium (Enoxaparin Sodium 40 Mg/0.4 Ml Syringe) 40 mg SUBCUT Q24H [facility] Last Admin: 07/29/23 17:22 Dose: 40 mg Ferrous Sulfate (Ferrous Sulfate 324 Mg Tablet.Dr) 324 mg PO DAILY [facility] Last Admin: 07/30/23 10:04 Dose: Not Given Fluticasone/Vilanterol (Fluticasone/Vilanterol 200/25 Blst.W.Dev) 1 puff INHALE RDAILY [facility] Last Admin: 07/30/23 07:47 Dose: Not Given Gabapentin (Gabapentin 600 Mg Tablet) 600 mg PO TID [facility] Last Admin: 07/30/23 15:10 Dose: Not Given Guaifenesin (Guaifenesin 200 Mg/10 Ml 10 Ml Liquid) 10 ml PO Q6H PRN PRN Reason: Cough Fluconazole 100 mg/ IV (Miscellaneous Supplies) 50 mls @ 50 mls/hr IV Q24H [facility] Last Infusion: 07/30/23 16:44 Dose: Infused Dextrose/Sodium Chloride (D5ns) 1,000 mls @ 80 mls/hr IVCONT .[id number] [facility] Last Admin: 07/30/23 05:49 Dose: 80 mls/hr Latanoprost (Latanoprost 0.005 % Ophth Carol 2.5 Ml Drops) 1 drop EYE-BOTH DAILY [facility] Last Admin: 07/30/23 09:57 Dose: 1 drop Lidocaine (Lidocaine 4 % Patch Adh..Patch) 1 patch TRANSDERMA DAILY@2000 [facility]; Protocol Last Admin: 07/29/23 20:28 Dose: 1 patch Mirtazapine (Mirtazapine 30 Mg Tablet) 60 mg PO BEDTIME [facility] Last Admin: 07/29/23 20:27 Dose: 60 mg Nystatin (Nystatin Oral Susp 500,000 Unit/5 Ml Oral.Susp) 500,000 unit PO QID [facility]; Protocol Last Admin: 07/30/23 16:47 Dose: Not Given Pantoprazole Sodium (Pantoprazole Sodium 40 Mg/10 Ml Vial) 40 mg IVPUSH DAILY@0630 [facility] Last Admin: 07/30/23 05:47 Dose: 40 mg Risperidone (Risperidone 3 Mg Tablet) 3 mg PO BEDTIME [facility] Last Admin: 07/29/23 20:27 Dose: 3 mg Sodium Chloride (0.9 % Sodium Chloride Flush 3 Ml Syringe) 3 ml IVFLUSH QSHIFT [facility] Last Admin: 07/30/23 16:47 Dose: Not Given Timolol Maleate (Timolol Maleate 0.5 % Oph Carol 5 Ml Drbtl) 1 drop EYE-BOTH BID [facility] Last Admin: 07/30/23 09:57 Dose: 1 drop Tramadol HCl (Tramadol Hcl 50 Mg Tablet) 25 mg PO Q6H PRN PRN Reason: Pain, Mild (Pain Scale 1-3) Last Admin: 07/29/23 14:02 Dose: 25 mg Home Medications Medication Instructions Recorded Confirmed Last Taken Type amlodipine 5 mg tablet 5 mg PO DAILY 12/30/22 07/27/23 4 Days Ago History ~07/23/23 bictegravir 50 mg-emtricitabine 1 tab PO DAILY 12/30/22 07/27/23 4 Days Ago History 200 mg-tenofovir alafenam 25 mg ~07/23/23 tablet (Biktarvy) clonazepam 1 mg tablet 1 mg PO DAILY 12/30/22 07/27/23 4 Days Ago History ~07/23/23 gabapentin 600 mg tablet 600 mg PO TID 12/30/22 07/27/23 4 Days Ago History ~07/23/23 latanoprost 0.005 % eye drops 1 drp ophthalmic (eye) DAILY 12/30/22 07/27/23 4 Days Ago History ~07/23/23 mirtazapine 30 mg tablet 60 mg PO BEDTIME 12/30/22 07/27/23 4 Days Ago History ~07/23/23 tramadol 50 mg tablet 50 mg PO DAILY PRN Pain 12/30/22 07/27/23 4 Days Ago History ~07/23/23 albuterol sulfate 90 mcg/actuation 2 puff inhalation Q6H PRN wheezing 02/12/23 07/27/23 4 Days Ago History aerosol inhaler ~07/23/23 ferrous gluconate 324 mg (38 mg 324 mg PO DAILY 02/12/23 07/27/23 4 Days Ago History iron) tablet ~07/23/23 brimonidine 0.2 %-timolol 0.5 % 1 drp ophthalmic (eye) BID 06/01/23 07/27/23 4 Days Ago History eye drops ~07/23/23 fluticasone propionate 230 2 puff inhalation BID 06/01/23 07/27/23 4 Days Ago History mcg-salmeterol 21 mcg/actuation ~07/23/23 HFA inhaler (Advair HFA) risperidone 3 mg tablet 3 mg PO BEDTIME 06/01/23 07/27/23 4 Days Ago History ~07/23/23 calcium carbonate 600 mg-vitamin 1 tab PO BID 06/24/23 07/27/23 4 Days Ago History D3 10 mcg (400 unit) tablet ~07/23/23 (Calcium 600 + D(3)) diphenhydramine HCl 25 mg tablet 50 mg PO BEDTIME 07/15/23 07/27/23 4 Days Ago History (Banophen) ~07/23/23 Exam Height,Weight and Vital Signs: Height 5 ft 6 in Weight 44.9 kg Last Vital Signs Temp 98.9 F 07/30/23 17:08 Pulse 55 07/30/23 17:08 Resp 16 07/30/23 17:08 BP 164/89 H 07/30/23 17:08 Pulse Ox 95 07/30/23 17:08 O2 Del Method Room Air 07/30/23 17:08 Pertinent Lab Results Pertinent Lab Results: Laboratory Tests 07/27/23 07/27/23 07/27/23 08:48 09:42 23:47 WBC 3.1 L RBC 4.36 L Hgb 13.3 L Hct 40.4 L MCV 92.7 MCH 30.5 MCHC 32.9 RDW 14.6 Plt Count 176 MPV 11.8 Immature Gran % (Auto) 0.0 Neut % (Auto) 47.5 Lymph % (Auto) 36.1 [place] % (Auto) 12.5 H Eos % (Auto) 2.9 Baso % (Auto) 1.0 Lymph # (Auto) 1.1 L [place] # (Auto) 0.4 Eos # (Auto) 0.1 Baso # (Auto) 0.0 Abs Immat Gran (auto) 0.00 Absolute Neuts (auto) 1.5 L Absolute Nucleated RBC 0.000 Nucleated RBC % (auto) 0.0 Hold Purple Top SEE NOTE PT INR Sodium 142 Potassium 4.2 Chloride 107 Carbon Dioxide 26 Anion Gap 13 BUN 14 Creatinine 0.81 Estim Creat Clear Calc 68.0 Estimated GFR > 60 Random Glucose 88 Calcium 9.7 Magnesium 2.2 Total Bilirubin 0.5 Direct Bilirubin 0.2 AST 32 ALT 40 Alkaline Phosphatase 58 Troponin I High Sens < 2.7 < 2.7 Total Protein 7.6 Albumin 4.0 COVID-19 ([facility]) Negative COVID-19 Clin Com See Note 07/28/23 07/29/23 07/30/23 05:20 18:05 06:20 WBC RBC Hgb Hct MCV MCH MCHC RDW Plt Count MPV Immature Gran % (Auto) Neut % (Auto) Lymph % (Auto) [place] % (Auto) Eos % (Auto) Baso % (Auto) Lymph # (Auto) [place] # (Auto) Eos # (Auto) Baso # (Auto) Abs Immat Gran (auto) Absolute Neuts (auto) Absolute Nucleated RBC Nucleated RBC % (auto) Hold Purple Top SEE NOTE PT 13.8 H INR 1.1 Sodium 141 141 Potassium 4.4 3.8 Chloride 106 107 Carbon Dioxide 28 26 Anion Gap 11 L 12 BUN 13 8 L Creatinine 0.86 0.77 Estim Creat Clear Calc 58.7 65.6 Estimated GFR > 60 > 60 Random Glucose 84 95 Calcium 9.4 8.8 D Magnesium Total Bilirubin Direct Bilirubin AST ALT Alkaline Phosphatase Troponin I High Sens Total Protein Albumin COVID-19 ([facility]) COVID-19 [employer] 07/30/23 06:30 WBC RBC Hgb Hct MCV MCH MCHC RDW Plt Count MPV Immature Gran % (Auto) Neut % (Auto) Lymph % (Auto) [place] % (Auto) Eos % (Auto) Baso % (Auto) Lymph # (Auto) [place] # (Auto) Eos # (Auto) Baso # (Auto) Abs Immat Gran (auto) Absolute Neuts (auto) Absolute Nucleated RBC Nucleated RBC % (auto) Hold Purple Top SEE NOTE PT INR Sodium Potassium Chloride Carbon Dioxide Anion Gap BUN Creatinine Estim Creat Clear Calc Estimated GFR Random Glucose Calcium Magnesium Total Bilirubin Direct Bilirubin AST ALT Alkaline Phosphatase Troponin I High Sens Total Protein Albumin COVID-19 ([facility]) COVID-19 Clin Com Airway Mallampati Class: II TM Dist: >3cm Neck ROM: Full Loose/Missing/Broken Teeth: No Heart: RRR Lungs: CTA Assessment and Plan Assessment Anesthesia Assessment: Anesthesia Plan Discussed and Chart Reviewed Final Anesthetic Review Family History of Problems with Anesthesia: No History of Problems with Anesthesia: No NPO: Yes ASA Class: III Final Preanesthetic Review: No Changes in Pt Med Stat, Meds/Allgs Chart Reviewed, Consent Obtained/Reviewed and Anes Risks/Benef Reviewed Patient Risk: Intermediate Procedure Risk: Low Anesthetic Plan Anesthetic Plan: GA Disposition: Standard PACU
--- NOTE | 2023-07-30 19:47 | P.BOP_ITS ---
Brief Operative Note Date of Service: 07/30/23 Pre-op diagnosis: Dysphagia Post-op diagnosis: other (Same, S/P PEG placement) Procedure: EGD with placement of a 20Fr Avanos PEG Implants: Avanos 20Fr PEG Surgeon: Pepe Stephenson MD Anesthesia: GETA Was an Aviation Boatsw[employer]'S Mate used for this Procedure?: No Estimated blood loss (mL): 2.0 Pathology: none sent Condition: stable Disposition: PACU
--- NOTE | 2023-07-30 19:49 | PM.EVENT ---
Event Note Date of Service: 07/30/23 Event Note: GI-EGD with PEG placement-Full note dictated Findings: Essentially normal EGD other than a small hiatal hernia. No sign of esophageal candidiasis. The anesthesiologist felt he saw an abnormal area along the left tonsil area during the patient's intubation. I could not verify that. I placed a 20Fr PEG without any immediate complication. The PEG can be used for water and meds this evening. Feedings can be started via the PEG via constant infusion on 07/31. Aspiration precautions with HOB elevated to 45 degrees. Hold Lovenox x 48 hours. I have ordered a CT of his neck as per the Anesthesiologist's concerns. Thanks Time Spent With Patient Time: Total time managing care of this patient today ____ minutes.
[2023-07-30] MEDS: traMADoL HCL 50 MG TABLET 25 MG PO (21:10)
[2023-07-30] MEDS: Nystatin Oral Susp 500,000 UNIT/5 ML ORAL.SUSP 500000 UNIT PO (21:13)
[2023-07-30] MEDS: Lidocaine 4 % Patch ADH..PATCH 1 PATCH TRANSDERMA (21:13)
[2023-07-30] MEDS: Calcium + Vitamin D 250 MG TABLET 500 MG PO (21:15)
[2023-07-30] MEDS: risperiDONE 3 MG TABLET PO (21:15)
[2023-07-30] MEDS: Gabapentin 600 MG TABLET PO (21:15)
[2023-07-30] MEDS: Mirtazapine 30 MG TABLET 60 MG PO (21:15)
--- NOTE | 2023-07-30 22:55 | PC.NURSE ---
Benadryl not available,pharmacy notified,11-7 RN aware
[2023-07-31] MEDS: diphenhydrAMINE HCl 12.5 MG/5 ML LIQUID 50 MG PO (00:33)
--- NOTE | 2023-07-31 00:56 | OP_ITS ---
DATE OF SERVICE: 07/30/2023 SURGEON: Pepe Stephenson MD INDICATIONS: The patient presents for evaluation of persistent dysphagia, malnutrition, and inability to adequately nor safely maintain oral intake. Full consent has been obtained from him for this, including risks of bleeding, perforation, infection, aspiration, and tube malfunction. PREOPERATIVE DIAGNOSIS: POSTOPERATIVE DIAGNOSIS: PROCEDURE PERFORMED: Esophagogastroduodenoscopy with placement of PEG. ESTIMATED BLOOD LOSS: COMPLICATIONS: ANESTHESIA: General anesthesia and 1% xylocaine for topical anesthetic. ASSISTANTS: SPECIMENS: PREOPERATIVE DIAGNOSES: Dysphagia and malnutrition. POSTOPERATIVE DIAGNOSES: Dysphagia and malnutrition, small hiatal hernia. DESCRPTION OF PROCEDURE: The patient was placed in the supine position. The Olympus video gastroscope was passed in the posterior oropharynx and upper esophagus under direct vision. The scope was passed slowly to the distal esophagus. The esophagogastric junction appeared normal at 38 cm. The entire esophagus was carefully inspected and I did not visualize any sign of esophagitis, esophageal candidiasis, nor any other mucosal abnormalities. The scope entered the stomach. There was a small hiatal hernia. The scope was advanced to the pylorus and the duodenum was cannulated to the descending portion. The duodenum including the bulb appeared normal without mass or ulceration. The scope was withdrawn back to the stomach. The gastric antrum and body appeared normal with good peristalsis. The scope was retroflexed visualizing the proximal stomach carefully, which appeared normal, without any sign of mass or ulceration. The scope was straightened. There was excellent transillumination of light seen in the upper abdomen to the left of the midline. There was excellent transmission of fingertip pressure seen in the gastric lumen. This area was prepped and draped with sterile technique. 1% xylocaine was used for topical anesthetic. An approximately 1 cm vertical incision was made. Using a trocar that was passed through the incision site into the stomach, a guidewire was passed into the stomach. This was grasped with the snare and brought out of the patient. By usual technique, a 20-Yakut Avanos PEG was placed without any immediate complication. The G-tube site was secured, and a sterile dressing was applied with bacitracin ointment. The patient tolerated the procedure well and was returned to the recovery area in stable condition. IMPRESSION: 1. Small hiatal hernia. 2. Status post placement of PEG. Of note, the anesthesiologist felt that he visualized some type of left tonsillar fullness or lesion as he was intubating the patient. I could not verify that. PLAN: The patient will have his feedings initiated tomorrow as per the hospitalist service. I shall order a CT scan of his neck as per the anesthesiologist's concern. Aspiration precautions have been ordered. I have also changed his PPI from intravenous to oral as well. I would hold his Lovenox for 48 hours. Of note, this is the type of PEG that can be removed percutaneously if need be. The patient can maintain oral intake as recommended by the speech and swallowing team and the hospitalist service as well. However, I think the bulk of his nutrition will be via the G-tube at this point. MD CASSIE Dos Santos/DEVORA / [phone] MTDD
[2023-07-31 03:52] VITALS: BP 129/77; PULSE 54; RESP 17; TEMP 36.1; O2SAT 96
[2023-07-31 07:20] VITALS: BP 130/82; PULSE 56; RESP 17; TEMP 36.2; O2SAT 96
--- NOTE | 2023-07-31 10:59 | HO.PM.IMPN ---
Subjective Subjective Date of Service: 07/31/23 Interval History: a peg was inserted yesterday and he's doing ok, he still want to be able to eat by mouth Physical Exam Vital Signs: Vital Signs: Last Vital Signs Temp 97.2 F 07/31/23 07:20 Pulse 56 07/31/23 07:20 Resp 17 07/31/23 07:20 BP 130/82 07/31/23 07:20 Pulse Ox 96 07/31/23 07:20 O2 Del Method Nasal Cannula 07/31/23 07:20 O2 Flow Rate 2.0 07/31/23 07:20 BMI result Body Mass Index 16.0 Const: Other: General: AO X 3, no acute distress Resp: CTA bilateral CVS: S1,S2,RRR GI: +BS, NT, no distention, PEG site look clean Skin: No rash Neuro: motor grossly intact Psych: appropriate affect Objective Data Active Medications Albuterol Sulfate (Albuterol Sulfate 90 Mcg 8 Gm Inhaler) 2 puff INHALE Q6H PRN PRN Reason: wheezing Albuterol/Ipratropium (Albuterol/Iprat 2.5/0.5mg 3 Ml Ampul.Neb) 3 ml INHALE Q4H [facility] Last Admin: 07/31/23 07:49 Dose: Not Given Documented By: RAYRAY Non-Admin Reason: Patient Refused Amlodipine Besylate (Amlodipine Besylate 5 Mg Tablet) 5 mg G-TUBE DAILY [facility]; Protocol Bictegravir/Emtricitabine/Tenofovir (Bictegrav/Emtricit/Tenofov Ala Tablet) 1 tab PO DAILY [facility] Last Admin: 07/30/23 14:48 Dose: Not Given Documented By: MICHELLE Non-Admin Reason: NPO Brimonidine Tartrate (Brimonidine Tartrate 0.2% Oph 5 Ml Bottle) 1 drop EYE-BOTH BID [facility] Last Admin: 07/30/23 20:44 Dose: 1 drop Documented By: RAJI Calcium Carbonate/Cholecalciferol (Calcium + Vitamin D 250 Mg Tablet) 500 mg G-TUBE BID [facility] Clonazepam (Clonazepam 1 Mg Tablet) 1 mg G-TUBE DAILY [facility] Diphenhydramine HCl (Diphenhydramine Hcl 12.5 Mg/5 Ml Liquid) 50 mg G-TUBE BEDTIME [facility] Enoxaparin Sodium (Enoxaparin Sodium 40 Mg/0.4 Ml Syringe) 40 mg SUBCUT Q24H [facility] Last Admin: 07/29/23 17:22 Dose: 40 mg Documented By: RAJI Ferrous Sulfate (Ferrous Sulfate 324 Mg Tablet.Dr) 324 mg PO DAILY [facility] Last Admin: 07/30/23 10:04 Dose: Not Given Documented By: MICHELLE Non-Admin Reason: NPO Fluticasone/Vilanterol (Fluticasone/Vilanterol 200/25 Blst.W.Dev) 1 puff INHALE RDAILY [facility] Last Admin: 07/31/23 07:49 Dose: Not Given Documented By: RAYRAY Non-Admin Reason: Patient Refused Gabapentin (Gabapentin 600 Mg Tablet) 600 mg G-TUBE TID [facility] Guaifenesin (Guaifenesin 200 Mg/10 Ml 10 Ml Liquid) 10 ml G-TUBE Q6H PRN PRN Reason: Cough Fluconazole 100 mg/ IV (Miscellaneous Supplies) 50 mls @ 50 mls/hr IV Q24H [facility] Last Infusion: 07/30/23 16:44 Dose: Infused Documented By: RAJI Latanoprost (Latanoprost 0.005 % Ophth Carol 2.5 Ml Drops) 1 drop EYE-BOTH DAILY [facility] Last Admin: 07/30/23 09:57 Dose: 1 drop Documented By: MICHELLE Lidocaine (Lidocaine 4 % Patch Adh..Patch) 1 patch TRANSDERMA DAILY@2000 [facility]; Protocol Last Admin: 07/30/23 21:13 Dose: 1 patch Documented By: RAJI Mirtazapine (Mirtazapine 30 Mg Tablet) 60 mg G-TUBE BEDTIME [facility] Neomycin/Polymyxin/Bacitracin (Neomy/Polymyx/Bacit/Ointment 14 Gm Tube) 1 gm TOPICAL DAILY [facility]; Protocol Stop: 08/06/23 20:00 Nystatin (Nystatin Oral Susp 500,000 Unit/5 Ml Oral.Susp) 500,000 unit PO QID [facility]; Protocol Last Admin: 07/30/23 21:13 Dose: 500,000 unit Documented By: RAJI Omeprazole (Omeprazole/Na Bicarb Oral Susp 20 Mg/10 Ml Ud Cup) 20 mg G-TUBE DAILY@0630 [facility] Risperidone (Risperidone 3 Mg Tablet) 3 mg G-TUBE BEDTIME [facility] Sodium Chloride (0.9 % Sodium Chloride Flush 3 Ml Syringe) 3 ml IVFLUSH QSHIFT [facility] Last Admin: 07/31/23 08:29 Dose: Not Given Documented By: VALDO Non-Admin Reason: Previously Administered Timolol Maleate (Timolol Maleate 0.5 % Oph Carol 5 Ml Drbtl) 1 drop EYE-BOTH BID [facility] Last Admin: 07/30/23 20:45 Dose: 1 drop Documented By: RAJI Tramadol HCl (Tramadol Hcl 50 Mg Tablet) 25 mg G-TUBE Q6H PRN PRN Reason: Pain, Mild (Pain Scale 1-3) Labs 07/27/23 09:42 07/30/23 06:20 Assessment and Plan (1) Oral thrush: Status: Acute (2) Adult failure to thrive: Status: Acute (3) Dysphagia: Status: Acute Plan 58 yo M with HIV [viral load undetectable 06/02/23, CD4 377 11/29/22, mild persistent asthma, history HCV, and history empyema of the lung here with dysphagia and chest pain related to rib fractures from last admission,Dysphagia etiology, EGD 07/17 few whitish spots in upper esophagus, c/w mild candidiasis normal stomach and duodenum, treated at that time with diflucan Gi eval noted -continue above management-continue IV diflucan,ppi, Ivf, nystatin also Due to dysphagia, severe malnutrition, impending failure to thrive and not taking in adequate calory , a PEG has been inserted on 07/30 Speech and Swallow following HIV - CD4 377 11/29/22, RNA undetectable 06/02/23; -continue Biktary Chest pain d/t rib fracture--pain meds PRN HTN--not able to take meds at this time, BP within normal Moderate protein calorie malnutrition--Supplement when able to take PO Full code DVT--Lovenox need for inpatient: ongoing hospitlisation need: management of dysphagia, odynophagia not able to eat or take meds, on IVF and meds, possible PEG tube placement. Quality Stroke Does the patient have a stroke diagnosis?: No VTE Prior VTE?: No VTE Risk Level:: Medical - moderate - high VTE Device Contraindication: N/A - Device Ordered VTE Drug Contraindication: N/A - Med Ordered
--- NOTE | 2023-07-31 13:30 | MHC.SL.DTX ---
Dysphagia Diet modifications: Last documented Solid diet consistencies: Pureed (NDD1) Last documented Liquid consistency: Last documented Medication Administration: Changes made to current diet?: Yes Liquid Consistency and Strategies: Liquid Intake Recommendation: Edmonson Thick Compensatory Strategies for Safe Swallow: Small Sips No Straws Double Swallow Compensatory Strategies for Safe Swallow(b): Sitting Upright (90 deg) Rate of Ingestion Change Solid Food Consistency: Dietary Recommendations: Pureed (NDD1) Additional Modifications to Solids: Pt seen by RECEIVABLES SPECIALIST in the ED for bedside swallow evaluation. Pt having difficulty forming bolus with solids, demonstrated delayed oral transit, and delayed swallow trigger. Note minimal chewing, anterior pocketing of ground textures, throat clearing on trials of thin liquid. Recommend RECEIVABLES SPECIALIST's previous recommendation of PUREED (NDD1) solids with NECTAR THICK liquids (no straws), crushed pills in PUREE. Pt requires total 1:1 assist for PO intake- administer small bites, check oral cavity intermittently for clearance, cue pt for dry swallow after each bite and sip, do not administer more bites/sips until oral cavity is cleared, liquids via spoon or controlled cup. Ensure strict aspiration precautions, close monitoring of tolerance, and frequent oral care for hygiene and comfort. Pt was seen by RECEIVABLES SPECIALIST during several subsequent ED visits and admissions. Pt would benefit from repeat MBSS, whether inpatient or outpatient, as it seems his swallow has declined. Oral Medication Intake: Crushed with Puree Strategies and Precautions to be Taken for Safe Swallow: Sitting Upright (90 deg) Rate of Ingestion Change Supervision While Eating and/Drinking: Total Assistance (1:1) Foods to Avoid: Swallowing Recommended Treatments: Compens. Strategy Educat. Level of Impact on: Daily activities: None Interpersonal interactions: Education: Employment: Community: None Prognosis for Improvement: Good Recommendation for Speech: Inpatient Speech Therapy Speech Therapy through A Speech Therapy through Rehab Facility Modified Barium Swallow Study - Inpatient Modified Barium Swallow Study - Outpatient Comment: Recommend continued ST during inpatient stay and at next level of care for worsening dysphagia. Pt would benefit from repeat-MBSS as well. Frequency/Duration: Date Range for Service Req: Timeline to reassess: Additional Comments: Treatment: Per Pt Advocate, Pt was observed having food come up and out of his mouth. RECEIVABLES SPECIALIST entered the room to find the Pt upright having completed 50% of his tray with TFs running. He had PEG surgery yesterday and was cleared to resume PO supplementation. He had previously been NPO for quite some time. Now with TFs initiated, his GI tract will need time to resume normal functioning and he is at risk of being overloaded with the result of potential retrograde aspiration. Recommend Pt be be made NPO and monitor input and output closely prior to resuming PO. Pt provided yankeur suctioning removing white cream resembling his magic cup. RN report in person. , and RD notified via secure text. Assessment: Multi Line Claims Adjuster Clinican/Clinical Fellow: No Supervisory Statement: I have reviewed and agree with the student/clinical fellow's documentation: N/A Speech Language Pathologist: Robby Blanton M.A., CCC-RECEIVABLES SPECIALIST
[2023-07-31] MEDS: Fluconazole in NaCl,Iso-Osm 100 MG in Container,Empty 0 ML 50 MG IV (13:41)
[2023-07-31] MEDS: amLODIPine Besylate 5 MG TABLET G-TUBE (13:42)
[2023-07-31] MEDS: NeoMY/Polymyx/Bacit/Ointment 14 GM Tube TOPICAL (13:42)
[2023-07-31] MEDS: clonazePAM 1 MG TABLET G-TUBE (13:43)
[2023-07-31] MEDS: timoloL maleate 0.5 % Oph Sol 5 ML DRBTL 1 DROP EYE-BOTH ×2 (13:44→21:01)
[2023-07-31] MEDS: Latanoprost 0.005 % Ophth Sol 2.5 ML DROPS 1 DROP EYE-BOTH (13:44)
[2023-07-31] MEDS: Brimonidine Tartrate 0.2% Oph 5 ML BOTTLE 1 DROP EYE-BOTH ×2 (13:44→21:01)
--- NOTE | 2023-07-31 13:57 | MHC.SL.DTX ---
Dysphagia Diet modifications: Last documented Solid diet consistencies: Pureed (NDD1) Last documented Liquid consistency: Last documented Medication Administration: Changes made to current diet?: Yes Liquid Consistency and Strategies: Liquid Intake Recommendation: Vance Thick Compensatory Strategies for Safe Swallow: Small Sips No Straws Double Swallow Compensatory Strategies for Safe Swallow(b): Sitting Upright (90 deg) Rate of Ingestion Change Solid Food Consistency: Dietary Recommendations: Pureed (NDD1) Oral Medication Intake: Crushed with Puree Strategies and Precautions to be Taken for Safe Swallow: Sitting Upright (90 deg) Rate of Ingestion Change Supervision While Eating and/Drinking: Total Assistance (1:1) Foods to Avoid: Swallowing Recommended Treatments: Compens. Strategy Educat. Level of Impact on: Daily activities: None Community: None Prognosis for Improvement: Good Recommendation for Speech: Inpatient Speech Therapy Speech Therapy through A Speech Therapy through Rehab Facility Modified Barium Swallow Study - Inpatient Modified Barium Swallow Study - Outpatient Comment: Recommend continued ST during inpatient stay and at next level of care for worsening dysphagia. Pt would benefit from repeat-MBSS as well. Frequency/Duration: Date Range for Service Req: Timeline to reassess: Additional Comments: Treatment: Per Pt Advocate, Pt was observed having food come up and out of his mouth. COMMERCIAL INSTALLER entered the room to find the Pt upright having completed 50% of his tray with TFs running. He had PEG surgery yesterday and was cleared to resume PO supplementation. He had previously been NPO for quite some time. Now with TFs initiated, his GI tract will need time to resume normal functioning and he is at risk of being overloaded with the result of potential retrograde aspiration. Recommend Pt be be made NPO and monitor input and output closely prior to resuming PO. Pt provided yankeur suctioning removing white cream resembling his magic cup. RN report in person. MD, and RD notified via secure text. Assessment: Rubber Stamp Die Inspector Clinican/Clinical Fellow: No Supervisory Statement: I have reviewed and agree with the student/clinical fellow's documentation: N/A Speech Language Pathologist: Robby Blanton M.A., [facility]COMMERCIAL INSTALLER
[2023-07-31] MEDS: traMADoL HCL 50 MG TABLET 25 MG G-TUBE (14:03)
[2023-07-31] MEDS: Calcium + Vitamin D 250 MG TABLET 500 MG G-TUBE ×2 (14:03→20:59)
[2023-07-31 15:31] VITALS: BP 133/83; PULSE 68; RESP 18; TEMP 36.7; O2SAT 94
--- NOTE | 2023-07-31 15:42 | MHC.CM.PN ---
CM SPOKE WITH LIAISON FROM [facility] [phone]) THE [facility] DOES NOT FEEL PT CAN TAKE CARE OF HIMSELF AND THEY ARE NOT ABLE TO MANAGE HIS G/T. PER [facility], FAMILY SUPPORT IS LIMITED. PT GIVES PERMISSION FOR THIS CM TO SPEAK WITH SISTER ALISE. ALISE/MARTINEZ HORTON CALLED AND HAVE CONCERNS REGARDING PT'S SAFETY AND ABILITY TO CARE FOR HIMSELF DESPITE DAILY VISITS FROM [facility] NURSE FOR MED MANAGEMENT. PT HAS A LOCK BOX. MARTINEZ HORTON PROVIDED ANOTHER CONTACT NUMBER FOR HER MOTHER (HCP ALISE [phone]) CM MET WITH PT WHO NOW RELUCTANTLY AGREES TO REHAB. REFERRALS SENT. MD MADE AWARE. CM WILL CONTINUE TO FOLLOW FOR ANY CHANGE IN DC PLAN/NEEDS.
--- NOTE | 2023-07-31 15:56 | HO.POSTANES ---
Post Anesthesia Evaluation Post Anesthesia Evaluation Date of Service: 07/30/23 Vital Signs: Vital Signs Temp Pulse Resp BP Pulse Ox O2 Del Method O2 Flow Rate 07/31/23 15:31 98.1 F 68 18 133/83 94 Nasal Cannula 2 07/31/23 07:20 97.2 F 56 17 130/82 96 Nasal Cannula 2.0 Anesthesia: General Endotracheal-GETA Mental Status: Awake Pain Control: Satisfactory Nausea/Vomiting: None Hydration: Adequate Anesthesia-Related Issues: No Anes. Related Issues
[2023-07-31] MEDS: iohexoL 350 MG/ML 100 ML INFUS..BTL IV (16:09)
[2023-07-31] MEDS: Gabapentin 600 MG TABLET G-TUBE ×2 (16:10→21:00)
[2023-07-31] MEDS: 0.9 % Sodium Chloride Flush 3 ML SYRINGE IVFLUSH ×2 (16:10→21:00)
--- NOTE | 2023-07-31 16:26 | HE.PHANOTE ---
FATOU DEGROOT SPOKE TO DR SENIOR PATIENT HAS BEEN OFF HIV MED FOR SOMETIME. CONTACTED [employer] AND GOT WEBSITE TO CASE STUDIES SHOWING MAINTENANCE OF VIRAL LOAD SUPPRESSION WITH CRUSHED TABLETS. THE LITERATURE SHOWS MIXED RESULTS, SOME HAS SHOWN A DECREASE IN SUPPRESSION. DR SENIOR MADE AWARE. WE BOTH CONCLUDED THAT SOME BENEFIT WAS BETTER THAN NO BENEFIT MARIANA
[2023-07-31 20:00] VITALS: BP 135/84; PULSE 56; RESP 18; TEMP 36.2; O2SAT 94
[2023-07-31] MEDS: diphenhydrAMINE HCl 12.5 MG/5 ML LIQUID 50 MG G-TUBE (20:59)
[2023-07-31] MEDS: Nystatin Oral Susp 500,000 UNIT/5 ML ORAL.SUSP 500000 UNIT PO (20:59)
[2023-07-31] MEDS: risperiDONE 3 MG TABLET G-TUBE (21:00)
[2023-07-31] MEDS: Bictegrav/Emtricit/Tenofov Ala TABLET 1 TAB PO (21:00)
[2023-07-31] MEDS: Mirtazapine 30 MG TABLET 60 MG G-TUBE (21:00)
[2023-08-01] VITALS (7 sets, daily range): BP systolic 100–112; BP diastolic 62–72; PULSE 57–64; RESP 16–18; TEMP 36.1–36.6; O2SAT 93–96
[2023-08-01] MEDS: Omeprazole/Na Bicarb Oral Susp 20 MG/10 ML UD Cup G-TUBE (06:08)
[2023-08-01] MEDS: Albuterol/Iprat 2.5/0.5MG 3 ML AMPUL.NEB INHALE ×3 (08:00→16:56)
[2023-08-01] MEDS: Fluticasone/Vilanterol 200/25 BLST.W.DEV 1 PUFF INHALE (08:00)
[2023-08-01] MEDS: amLODIPine Besylate 5 MG TABLET G-TUBE (09:30)
[2023-08-01] MEDS: clonazePAM 1 MG TABLET G-TUBE (09:30)
[2023-08-01] MEDS: 0.9 % Sodium Chloride Flush 3 ML SYRINGE IVFLUSH ×3 (09:30→21:21)
[2023-08-01] MEDS: Gabapentin 600 MG TABLET G-TUBE ×3 (09:30→21:21)
[2023-08-01] MEDS: Calcium + Vitamin D 250 MG TABLET 500 MG G-TUBE ×2 (09:30→21:20)
[2023-08-01] MEDS: Brimonidine Tartrate 0.2% Oph 5 ML BOTTLE 1 DROP EYE-BOTH ×2 (09:31→21:22)
[2023-08-01] MEDS: timoloL maleate 0.5 % Oph Sol 5 ML DRBTL 1 DROP EYE-BOTH ×2 (09:31→21:22)
[2023-08-01] MEDS: NeoMY/Polymyx/Bacit/Ointment 14 GM Tube TOPICAL (09:31)
[2023-08-01] MEDS: Latanoprost 0.005 % Ophth Sol 2.5 ML DROPS 1 DROP EYE-BOTH (09:31)
--- NOTE | 2023-08-01 09:46 | MHC.CLN ---
F/U PEG PLACED 07/30. PATIENT IS NPO. TOLERATING TUBE FEEDING AT MAX GOAL RATE. JEVITY 1.0 AT MAX GOAL RATE 60ML/HR WITH 120ML FREE WATER FLUSHES Q 8 HRS. PROVIDES 1526KCALS (31KCALS/KG), 63.7G PROTEIN (1.3G/KG), 1562ML TOTAL WATER FROM FORMULA AND FLUSHES (32ML/KG). CONTINUE TF AT MAX GOAL RATE. MONITOR TOLERANCE, RESIDUALS AND LYTES.
--- NOTE | 2023-08-01 10:25 | P.PNIM_ITS ---
Subjective Subjective Date of Service: 08/01/23 Interval History: f/u on dysphagia, weakness, tolerating tube feed Physical Exam 2 Vital Signs: Vital Signs: Last Vital Signs Temp 97.8 F 08/01/23 07:12 Pulse 61 08/01/23 08:03 Resp 16 08/01/23 08:03 BP 111/66 08/01/23 07:12 Pulse Ox 93 08/01/23 07:12 O2 Del Method Nasal Cannula 08/01/23 07:12 O2 Flow Rate 2.0 08/01/23 07:12 BMI result Body Mass Index 16.0 Const: Other: General: AO X 3, no acute distress Resp: CTA bilateral CVS: S1,S2,RRR GI: +BS, NT, no distention Skin: No rash Neuro: motor grossly intact Psych: appropriate affect Objective Data Active Medications Albuterol Sulfate (Albuterol Sulfate 90 Mcg 8 Gm Inhaler) 2 puff INHALE Q6H PRN PRN Reason: wheezing Albuterol/Ipratropium (Albuterol/Iprat 2.5/0.5mg 3 Ml Ampul.Neb) 3 ml INHALE Q4H [facility] Last Admin: 08/01/23 08:00 Dose: 3 ml Documented By: OBINNA Amlodipine Besylate (Amlodipine Besylate 5 Mg Tablet) 5 mg G-TUBE DAILY [facility]; Protocol Last Admin: 08/01/23 09:30 Dose: 5 mg Documented By: VALDO Bictegravir/Emtricitabine/Tenofovir (Bictegrav/Emtricit/Tenofov Ala Tablet) 1 tab PO BEDTIME [facility] Last Admin: 07/31/23 21:00 Dose: 1 tab Documented By: CHRIS Brimonidine Tartrate (Brimonidine Tartrate 0.2% Oph 5 Ml Bottle) 1 drop EYE- BOTH BID [facility] Last Admin: 08/01/23 09:31 Dose: 1 drop Documented By: VALDO Calcium Carbonate/Cholecalciferol (Calcium + Vitamin D 250 Mg Tablet) 500 mg G- TUBE BID [facility] Last Admin: 08/01/23 09:30 Dose: 500 mg Documented By: VALDO Clonazepam (Clonazepam 1 Mg Tablet) 1 mg G-TUBE DAILY [facility] Last Admin: 08/01/23 09:30 Dose: 1 mg Documented By: VALDO Diphenhydramine HCl (Diphenhydramine Hcl 12.5 Mg/5 Ml Liquid) 50 mg G-TUBE BEDTIME [facility] Last Admin: 07/31/23 20:59 Dose: 50 mg Documented By: CHRIS Enoxaparin Sodium (Enoxaparin Sodium 40 Mg/0.4 Ml Syringe) 40 mg SUBCUT Q24H [facility] Last Admin: 07/29/23 17:22 Dose: 40 mg Documented By: RAJI Ferrous Sulfate (Ferrous Sulfate 324 Mg Tablet.Dr) 324 mg PO DAILY [facility] Last Admin: 08/01/23 09:26 Dose: Not Given Documented By: VALDO Non-Admin Reason: NPO Fluticasone/Vilanterol (Fluticasone/Vilanterol 200/25 Blst.W.Dev) 1 puff INHALE RDAILY [facility] Last Admin: 08/01/23 08:00 Dose: 1 puff Documented By: OBINNA Gabapentin (Gabapentin 600 Mg Tablet) 600 mg G-TUBE TID [facility] Last Admin: 08/01/23 09:30 Dose: 600 mg Documented By: VALDO Guaifenesin (Guaifenesin 200 Mg/10 Ml 10 Ml Liquid) 10 ml G-TUBE Q6H PRN PRN Reason: Cough Fluconazole 100 mg/ IV (Miscellaneous Supplies) 50 mls @ 50 mls/hr IV Q24H [facility] Last Infusion: 07/31/23 15:02 Dose: Infused Documented By: VALDO Latanoprost (Latanoprost 0.005 % Ophth Carol 2.5 Ml Drops) 1 drop EYE-BOTH DAILY [facility] Last Admin: 08/01/23 09:31 Dose: 1 drop Documented By: VALDO Lidocaine (Lidocaine 4 % Patch Adh..Patch) 1 patch TRANSDERMA DAILY@1999 [facility]; Protocol Last Admin: 07/31/23 20:59 Dose: Not Given Documented By: CHRIS Non-Admin Reason: Patient Refused Mirtazapine (Mirtazapine 30 Mg Tablet) 60 mg G-TUBE BEDTIME [facility] Last Admin: 07/31/23 21:00 Dose: 60 mg Documented By: CHRIS Neomycin/Polymyxin/Bacitracin (Neomy/Polymyx/Bacit/Ointment 14 Gm Tube) 1 gm TOPICAL DAILY [facility]; Protocol Stop: 08/06/23 20:00 Last Admin: 08/01/23 09:31 Dose: 1 gm Documented By: VALDO Nystatin (Nystatin Oral Susp 500,000 Unit/5 Ml Oral.Susp) 500,000 unit PO QID [facility]; Protocol Last Admin: 08/01/23 09:48 Dose: Not Given Documented By: VALDO Non-Admin Reason: NPO Omeprazole (Omeprazole/Na Bicarb Oral Susp 20 Mg/10 Ml Ud Cup) 20 mg G-TUBE DAILY@0630 [facility] Last Admin: 08/01/23 06:08 Dose: 20 mg Documented By: CHRIS Risperidone (Risperidone 3 Mg Tablet) 3 mg G-TUBE BEDTIME [facility] Last Admin: 07/31/23 21:00 Dose: 3 mg Documented By: CHRIS Sodium Chloride (0.9 % Sodium Chloride Flush 3 Ml Syringe) 3 ml IVFLUSH QSHIFT [facility] Last Admin: 08/01/23 09:30 Dose: 3 ml Documented By: VALDO Timolol Maleate (Timolol Maleate 0.5 % Oph Carol 5 Ml Drbtl) 1 drop EYE-BOTH BID [facility] Last Admin: 08/01/23 09:31 Dose: 1 drop Documented By: VALDO Tramadol HCl (Tramadol Hcl 50 Mg Tablet) 25 mg G-TUBE Q6H PRN PRN Reason: Pain, Mild (Pain Scale 1-3) Last Admin: 07/31/23 14:03 Dose: 25 mg Documented By: VALDO Labs 07/27/23 09:42 07/30/23 06:20 Assessment and Plan (1) Oral thrush: Status: Acute (2) Adult failure to thrive: Status: Acute (3) Dysphagia: Status: Acute Plan 58 yo M with HIV [viral load undetectable 06/02/23, CD4 377 11/29/22, mild persistent asthma, history HCV, and history empyema of the lung here with dysphagia and chest pain related to rib fractures Recurrent dysphagia with moderate protein calory malnutrition.. s/p PEG on 07/30 Started tube feed yesterday and seem to be tolerating continue swallow evel for possible oral fee as wel HIV - CD4 377 3/22/23, RNA undetectable 06/02/23; -continue Biktary (maybe crush) Chest pain d/t known rib fracture--pain meds PRN HTN-- med by PEG Moderate protein calorie malnutrition-- Tubee feed as above Gen weakness, PT recommends rehab Full code DVT--Lovenox need for inpatient: ongoing hospitlisation need: management of dysphagia, odynophagia not able to eat or take meds, on IVF and meds, possible PEG tube placement. Quality Stroke Does the patient have a stroke diagnosis?: No VTE Prior VTE?: No VTE Risk Level:: Medical - moderate - high VTE Device Contraindication: N/A - Device Ordered VTE Drug Contraindication: N/A - Med Ordered
--- NOTE | 2023-08-01 10:43 | MHC.SLORD ---
Speech Language Pathology Order Status: Spoke w/ RN who confirmed pt has been NPO since INDUSTRIAL GAS SERVICER SUPERVISOR recommendation yesterday. Pt is reportedly drooling intermittently and using yankaeur suctioning to manage secretions. RN to Steve INDUSTRIAL GAS SERVICER SUPERVISOR if pt would be ready for PO trials later this date.
[2023-08-01] MEDS: Fluconazole in NaCl,Iso-Osm 100 MG in Container,Empty 0 ML 50 MG IV (13:23)
--- NOTE | 2023-08-01 13:54 | MHC.CM.PN ---
Addendum entered by Suki Webb RN 08/01/23 14:14: PLEASE CONTACT PT'S FAMILY ONCE TRANSPORT TIME IS SET UP Original Note: PT MEDICALLY CLEARED FOR D/C TO [facility] PENDING [facility] AUTH, T WILL NEED BLS TRANSPORT
--- NOTE | 2023-08-01 14:22 | MHC.CM.PN ---
PT'S KALANI BROUGHT IN PT'S LOCK BOX, JUAN FROM [facility] GAVE CM CODE TO LOCK AND 2 HALF FULL BOTTLES OF BIKTOVY REMOVED AND GIVEN TO RN, BOX RELOCKED AND FAMILY WAS GIVEN BOX TO TAKE HOME. BIKTOVY WILL BE SENT TO [facility] W/PT ONCE [facility] AUTH RECIEVED.
[2023-08-01] MEDS: Enoxaparin Sodium 40 MG/0.4 ML SYRINGE SUBCUT (16:37)
--- NOTE | 2023-08-01 16:45 | MHC.CM.PN ---
CM RECEIVED MESSAGE FROM [facility] REPORTING THEY HAVE AUTH, PER HOSPITALIST WILL HOLD PT UNTIL TOMORROW MORNING, PT PREBOOKED FOR 10AM W/JAISON, PT WILL NEED 2 JUGS OF FEED AND BIKTARVY SENT W/PT. PT'S FAMILY AWARE.
[2023-08-01] MEDS: Nystatin Oral Susp 500,000 UNIT/5 ML ORAL.SUSP 500000 UNIT PO (21:19)
[2023-08-01] MEDS: diphenhydrAMINE HCl 12.5 MG/5 ML LIQUID 50 MG G-TUBE (21:20)
[2023-08-01] MEDS: Bictegrav/Emtricit/Tenofov Ala TABLET 1 TAB PO (21:20)
[2023-08-01] MEDS: Mirtazapine 30 MG TABLET 60 MG G-TUBE (21:21)
[2023-08-01] MEDS: risperiDONE 3 MG TABLET G-TUBE (21:21)
[2023-08-02 04:00] VITALS: BP 118/69; PULSE 58; RESP 16; TEMP 36.2; O2SAT 94
[2023-08-02] MEDS: Omeprazole/Na Bicarb Oral Susp 20 MG/10 ML UD Cup G-TUBE (05:23)
--- NOTE | 2023-08-02 07:19 | P.DS_ITS ---
DS: Providers Provider Date of Service: 08/02/23 Date of admission: 07/27/23 12:29 Primary care physician: Terese Keenan MD Consults: 07/27/23 10:32 Consult to Gastroenterology Stat Consulting Provider: Pepe Stephenson Reason for consultation: Dr. Dodson aware too, needs G tube progressive dysphagia Has provider been notified: Yes 07/27/23 12:28 Consult to Gastroenterology Routine Consulting Provider: Pepe Stephenson Reason for consultation: ftt,decreased po intake Has provider been notified: No DS: Diagnosis Discharge Diagnosis (1) Oral thrush: Status: Acute (2) Adult failure to thrive: Status: Acute (3) Dysphagia: Status: Acute DS: Summary Hospital Course Hospital Course: Chief Complaint: ftt ,dysphagia 58 y/o M with PMH of HIV , mild persistent asthma, history HCV, and history empyema of the lung, known dysphagia just had EGD on 07/17 with [facility] - white spots upper esophagus mild candidiasis - speech saw patient and recommended NND +1 nectar thick liquid diet : He was sent home with fluconazole he says in. He went home and he could on able to consume much food and he says he is beginning difficult day by day and unable to eat, feel dehydrated-decided to come to the ED,ED seen on 07/20 in our ED by me refused rehab and wanted to go home with VNA and Ed given him thickening packets he presents today stating he has lots of throat pain and cannot live like this or tolerate it anymore. He cannot consume anything and has cough and feels chest discomfort when coughs , denies any sputum production Or fever. Denies any recent travel or sick contacts. Denies any nausea vomiting or abdominal pain or weakness or numbness, generalized weak. Hospital course: A patient with a history of HIV has been experiencing difficulty swallowing. He was admitted to the hospital earlier this month for this issue, and his esophagogastroduodenoscopy (EGD) showed no strictures but a few whitish spots in the upper esophagus, consistent with mild candidiasis. He was treated for candidiasis. He was evaluted by speech; his diet was advanced succesfully, and he was subsequently discharged home. However, he returned to the hospital just over a week later with the same symptoms of inability to eat and failure to thrive. He underwent another EGD, which was essentially normal, and a percutaneous endoscopic gastrostomy (PEG) tube was placed. He has been tolerating tube feeding well at the maximum recommended rate by the marine engine machinist. Electrolytes are normal today. The exact cause of his dysphagia is unclear, and speech and language pathology will continue to work with him to see if he can safely swallow some food, as he still desires to eat orally. His medications will continue to be administered through the PEG tube, including the HIV med Bikarvy which maybe crushed per pharmacy Time Attestation Discharge coordination time: Greater than 30 minutes Quality: Safe Use of Opioids Does Pt have an Active Cancer Diagnosis on the Problem List?: No Quality: Stroke Does the patient have a stroke diagnosis?: No Physical Exam Vital Signs: Vital Signs: Last Vital Signs Temp 97.2 F 08/02/23 04:00 Pulse 58 08/02/23 04:00 Resp 16 08/02/23 04:00 BP 118/69 08/02/23 04:00 Pulse Ox 94 08/02/23 04:00 O2 Del Method Room Air, Oxymask 08/02/23 04:00 O2 Flow Rate 2.0 08/01/23 07:12 BMI result Body Mass Index 16.0 Const: Other: General: AO X 3, no acute distress Resp: CTA bilateral CVS: S1,S2,RRR GI: +BS, NT, no distention, PEG site is clean Skin: No rash Neuro: motor grossly intact Psych: appropriate affect DS: Data Data Completed and Pending Completed studies during hospitalization [Text1]: Procedures Discharge Plan Discharge Anticipated Discharge Date/Time: 08/02/23 07:20 Patient Disposition: Xfer SNF Discharge Diagnosis: Dysphagia, HIV, Protein calorie malnutrition Referrals: [facility] [Outside] - 1 Day (SHORT TERM REHAB) Terese Rivera MD [Primary Care Provider] - 1 Week Discharge Medications: Continued latanoprost 0.005 % drops 1 drp ophthalmic (eye) DAILY albuterol sulfate 90 mcg/actuation HFA aerosol inhaler 2 puff inhalation Q6H PRN (Reason: wheezing) Biktarvy 50-200-25 mg tablet 1 tab PO DAILY Qty: 14 0RF Rx Instructions: Ok to crush and give via feeding tube fluticasone propion-salmeterol [Advair HFA] 230-21 mcg/actuation HFA aerosol inhaler 2 puff inhalation BID brimonidine-timolol 0.2-0.5 % drops 1 drp ophthalmic (eye) BID Changed gabapentin 600 mg tablet 600 mg feeding tube TID Qty: 20 0RF clonazepam 1 mg tablet 1 mg feeding tube DAILY Qty: 10 0RF amlodipine 5 mg tablet 5 mg feeding tube DAILY Qty: 30 0RF tramadol 50 mg tablet 50 mg feeding tube DAILY PRN (Reason: Pain) Qty: 14 0RF risperidone 3 mg tablet 3 mg feeding tube BEDTIME Qty: 30 0RF mirtazapine 30 mg tablet 60 mg feeding tube BEDTIME Qty: 20 0RF diphenhydramine HCl [Banophen] 25 mg tablet 25 mg feeding tube BEDTIME Qty: 20 0RF ferrous gluconate 324 mg (38 mg iron) tablet 324 mg feeding tube DAILY Qty: 14 0RF Rx Instructions: PATIENT STOP TAKING BECAUSE CONSTIPATION . HE IS AWARE HE SHOULD BE TAKING MED . Discontinued calcium carbonate-vitamin D3 [Calcium 600 + D(3)] 600 mg-10 mcg (400 unit) Tablet 1 tab PO BID fluconazole [Diflucan] 100 mg tablet 100 mg PO DAILY Qty: 7 0RF Discharge Orders: Discharge Order (Routine); Ordered 08/02/23 Ordered By: Gregg Whitaker Diet: Tube feed Activity on Discharge: As tolerated Stand Alone Forms: Patient Portal Discharge page Care Plan Goals: to prevent aspiration Health Concerns: dysphagia HIV protein calorie malnutrition Plan of Treatment: * Feeding tube:?Use the feeding tube for all medications and nutrition. The patient should be reassess by speech and language pathology to determine his ability to swallow. If swallowing is safe, the patient may be able to transition to oral feeding agin. * Biktarvy may be crushed and administered through the feeding tube. This was done in the hospital per pharmacy advise * Follow-up:?Schedule a follow-up appointment with the patient's primary care physician (PCP) in one week. Tube feed--recomendation by Nutrition PEG PLACED 07/30. PT is NPO TOLERATING TUBE FEEDING AT MAX GOAL RATE. JEVITY 1.0 AT MAX GOAL RATE 60ML/HR WITH 120ML FREE WATER FLUSHES Q 8 HRS. PROVIDES 1526KCALS (31KCALS/KG), 63.7G PROTEIN (1.3G/KG), 1562ML TOTAL WATER FROM FORMULA AND FLUSHES (32ML/KG). CONTINUE TF AT MAX GOAL RATE. Electrolytes are normal Assessment: as above
[2023-08-02 07:56] VITALS: BP 113/70; PULSE 58; RESP 18; TEMP 36.1; O2SAT 94
[2023-08-02] MEDS: amLODIPine Besylate 5 MG TABLET G-TUBE (07:57)
[2023-08-02] MEDS: Calcium + Vitamin D 250 MG TABLET 500 MG G-TUBE (07:57)
[2023-08-02] MEDS: Gabapentin 600 MG TABLET G-TUBE (07:57)
[2023-08-02] MEDS: clonazePAM 1 MG TABLET G-TUBE (07:57)
[2023-08-02] MEDS: Albuterol/Iprat 2.5/0.5MG 3 ML AMPUL.NEB INHALE (08:05)
[2023-08-02] MEDS: Latanoprost 0.005 % Ophth Sol 2.5 ML DROPS 1 DROP EYE-BOTH (08:05)
[2023-08-02] MEDS: Fluticasone/Vilanterol 200/25 BLST.W.DEV 1 PUFF INHALE (08:05)
[2023-08-02] MEDS: 0.9 % Sodium Chloride Flush 3 ML SYRINGE IVFLUSH (08:06)
[2023-08-02] MEDS: Brimonidine Tartrate 0.2% Oph 5 ML BOTTLE 1 DROP EYE-BOTH (08:06)
[2023-08-02 08:07] VITALS: PULSE 57; RESP 16; O2SAT 98
[2023-08-02] MEDS: NeoMY/Polymyx/Bacit/Ointment 14 GM Tube TOPICAL (08:07)
[2023-08-02] MEDS: Nystatin Oral Susp 500,000 UNIT/5 ML ORAL.SUSP 500000 UNIT PO (08:07)
[2023-08-02] MEDS: timoloL maleate 0.5 % Oph Sol 5 ML DRBTL 1 DROP EYE-BOTH (08:08)
[2023-08-02 08:11] LABS: Anion Gap 12 (12-20); Blood Urea Nitrogen 11 mg/dL (9-16); Calcium 8.9 mg/dL (8.4-10.2); Carbon Dioxide 29 mmol/L (22-29); Chloride 105 mmol/L (96-108); Creatinine Clr Calc Pharmacy 61.6; Estimated Glomerular Filt Rate > 60; Glucose Random 101 mg/dL (60-115); Magnesium 1.9 mg/dL (1.6-2.6); Potassium 3.9 mmol/L (3.3-5.1); Sodium 142 mmol/L (135-145)
--- NOTE | 2023-08-02 09:52 | MHC.CM.PN ---
PT WILL DC TO [facility] TODAY AT 1000 HOURS VIA [facility] TWO BOTTLES OF JEVITY AND PTS BIKTARVY FROM HOME, WILL BE SENT WITH HIM FAMILY INFORMED PT DC PLAN AND TIME YESTERDAY
== END 2023-08-02 10:15 | disposition skilled nursing facility (03) | DRG 391 ==
LOC: HO.ED 10:12 → HO.EDOVER 12:33 → HO.S3 18:59
PROVIDERS: Internal Medicine; Student in an Organized Health Care Education/Training Program; Admitting Provider Internal Medicine; Emergency Provider Emergency Medicine; PCP Student in an Organized Health Care Education/Training Program; Visit Provider Internal Medicine
PROC: 0DJ08ZZ Inspection of Upper Intestinal Tract, Via Natural or Artificial Opening Endoscopic (ICD-10-PCS; CPT 43235; principal; 2023-07-30 16:30)
DX: R13.10 Dysphagia, unspecified (principal); E43 Unspecified severe protein-calorie malnutrition; Z68.1 Body mass index [BMI] 19.9 or less, adult; Z21 Asymptomatic human immunodeficiency virus [HIV] infection status; J45.30 Mild persistent asthma, uncomplicated; R62.7 Adult failure to thrive; I10 Essential (primary) hypertension; F17.210 Nicotine dependence, cigarettes, uncomplicated; Z71.6 Tobacco abuse counseling; Z20.822 Contact with and (suspected) exposure to COVID-19; Z87.891 Personal history of nicotine dependence; Z79.899 Other long term (current) drug therapy
CPT/HCPCS: 36415; 70491; 71045; 80048; 80076; 83735; 84484; 85025; 85610; 87635; 92610; 93005; 94640; 99285; C9113; J0690; J1450; J1650; J1885; J2270; J2405; J2704; J3010; J7120; Q9967

== ENCOUNTER → 2023-07-27 12:29 | Outpatient (BNV) | payer OTHER, SELFPAY | PROVIDERS: Admitting Provider Internal Medicine; Emergency Provider Emergency Medicine; Visit Provider Internal Medicine | DX: B37.0 Candidal stomatitis (principal); R62.7 Adult failure to thrive; R13.10 Dysphagia, unspecified | CPT/HCPCS: 99222; 99231; 99232; 99239 ==

== ENCOUNTER 2023-09-01 14:38 | Emergency (ER) | payer OTHER, SELFPAY ==
--- NOTE | ~2023-09-01 | CT_ITS ---
Examination: CT brain and CT cervical spine without contrast CLINICAL INDICATION: Cervical radiculopathy. COMPARISON: CT brain 06/18/2023 TECHNIQUE: 5 mm thin axial and reformatted 2 mm thin sagittal and coronal images of brain were obtained. Subsequently axial 3 mm thin and reformatted 2 mm thin sagittal and coronal images of cervical spine were obtained. DLP [id number]. This CT examination was performed using dose optimization technique as appropriate, variously including the following: Automated exposure control Adjustment of MA and/or KV according to patient size(this includes techniques or standardized protocols for targeted exams where dose is matched to indication/reason for exam; extremities or head. Use of iterative reconstruction techniques. FINDINGS: BRAIN: There is no acute intra-axial, extra-axial bleed, masses or midline shift. There is no acute infarction in evolution. There is no edema. Lowe to white matter differentiation is maintained normal. Bone windows reveal no calvarial abnormality. There is no scalp soft tissue abnormality. Bilateral paranasal sinuses and mastoid air cells are well-aerated. No scalp soft tissue abnormality seen. CERVICAL SPINE: There is mild straightening of cervical lordosis. The vertebral heights and alignment is normal. There is mild loss of C3-C4 disc height with mild posterior spondylosis at the C3-C4, C4-C5 disc levels. The craniovertebral junction and the C1-C2 alignment is normal. There is no visible acute fracture, dislocation or subluxation. The prevertebral and paravertebral soft tissues are normal. CT/CT cervical spine wo IV con IMPRESSION: No acute intracranial process seen. No acute fracture, dislocation or subluxation seen. Degenerative disc changes C3-C4 disc level with posterior spondylosis C3-C4 and C4-C5 disc levels. Facet joint arthropathy as described above.
--- NOTE | ~2023-09-01 | XR_ITS ---
EXAMINATION: XR CHEST CLINICAL INFORMATION: Cough COMPARISON: None available. TECHNIQUE: Frontal view of the chest was obtained. FINDINGS: Healed left-sided rib fractures. No significant abnormality is noted involving the heart, lungs, mediastinum, bony thorax or soft tissues. XR/XR chest 1V IMPRESSION: No active chest disease..
[2023-09-01 15:00] VITALS: BP 110/64; BP 126/80; PULSE 70; PULSE 72; RESP 16; TEMP 36.6; O2SAT 92; O2SAT 93; BMI 16.7
[2023-09-01 15:31] LABS: MANUAL DIFF FLAG NO
[2023-09-01 15:39] LABS: Basophils Percent Auto 0.8 % (0-2); Eosinophils Absolute Auto 0.1 X10*3/uL (0.0-0.4); Eosinophils Percent Auto 2.8 % (0-4); Hematocrit 40.5 % (42.0-52.0); Hemoglobin 13.7 g/dl (14.0-18.0); Lymphocytes Absolute Auto 1.6 X10*3/uL (1.2-4.9); Lymphocytes Percent Auto 40.6 % (20-40); Mean Corpuscular HGB Conc 33.8 g/dl (31.0-36.0); Mean Corpuscular Hemoglobin 31.1 pg (27.0-33.0); Mean Platelet Volume 11.9 fL (9.4-12.4); Monocytes Absolute Auto 0.6 X10*3/uL (0.1-1.2); Monocytes Percent Auto 14.2 % (2-11); Neutrophils Absolute Auto 1.6 x10*3/uL (2.0-8.3); Neutrophils Percent Auto 41.6 % (45-73); Platelet Count 181 X10*3/uL (160-400); Red Cell Distribution Width 13.8 % (11.0-16.0); White Blood Count 3.9 X10*3/uL (4.8-10.8)
[2023-09-01 15:50] LABS: COVID-19 Test Negative (Negative); IDNOW Serial# BCCEAD1C
[2023-09-01 15:53] LABS: Alanine Aminotransferase 45 U/L (0-40); Albumin Level 3.8 g/dL (3.5-5.0); Alkaline Phosphatase 61 U/L (39-117); Anion Gap 12 (12-20); Aspartate Amino Transferase 22 U/L (5-37); Bilirubin Total 0.3 mg/dL (0.0-1.0); Blood Urea Nitrogen 25 mg/dL (9-16); Calcium 8.9 mg/dL (8.4-10.2); Carbon Dioxide 25 mmol/L (22-29); Chloride 105 mmol/L (96-108); Creatinine Clr Calc Pharmacy 72.7; Estimated Glomerular Filt Rate > 60; Glucose Random 107 mg/dL (60-115); Magnesium 1.8 mg/dL (1.6-2.6); Potassium 3.8 mmol/L (3.3-5.1); Sodium 138 mmol/L (135-145); Total Protein 7.1 g/dL (6.5-8.0)
[2023-09-01 16:01] LABS: IDNOW Serial# 08D9AD1C; Influenza A Negative (Negative); Influenza B2 Negative (Negative)
--- NOTE | 2023-09-01 16:44 | ECG_ITS ---
Test Reason : L SIDED HEADACHE Blood Pressure : / mmHG Vent. Rate : 064 BPM Atrial Rate : 064 BPM P-R Int : 168 ms QRS Dur : 106 ms QT Int : 400 ms P-R-T Axes : 076 077 063 degrees QTc Int : 412 ms Normal sinus rhythm Incomplete right bundle branch block Borderline ECG When compared with ECG of 27-JUL-2023 23:40, No significant change was found Referred By: Yousuf Cabrales Electronically Signed By:ZHANG OCHOA MD
--- NOTE | 2023-09-01 16:50 | ED_ITS ---
HPI - General Adult General Chief complaint: General Medical Stated complaint: L SIDED HEADACHE Time Seen by Provider: 09/01/23 16:34 Source: patient Mode of arrival: ambulatory Limitations: no limitations History of Present Illness HPI narrative: 49 yold male with pmh of dysyphagia, Emphysema, heaptitis C, Pneumonia, Lung abscess presents to the ED for LEft sided headache radiating down all the way to her legs for the past 2 days. patient denies any blurry vision, change/loss of vision, nausea, vomitting, chest pain, shortness of breath, neck stiffness, slurred speech, facial droop, paralysis of extremities, or dizziness. Patient denies any recent trauma. Patient states no allergic reaction to oxycodone. Related Data Home Medications Medication Instructions Recorded Confirmed latanoprost 0.005 % eye drops 1 drp ophthalmic (eye) DAILY 12/30/22 07/27/23 albuterol sulfate 90 mcg/actuation 2 puff inhalation Q6H PRN wheezing 02/12/23 07/27/23 aerosol inhaler brimonidine 0.2 %-timolol 0.5 % 1 drp ophthalmic (eye) BID 06/01/23 07/27/23 eye drops fluticasone propionate 230 2 puff inhalation BID 06/01/23 07/27/23 mcg-salmeterol 21 mcg/actuation HFA inhaler (Advair HFA) Previous Rx's Medication Instructions Recorded amlodipine 5 mg tablet 5 mg feeding tube DAILY #30 tabs 08/02/23 bictegravir 50 mg-emtricitabine 1 tab PO DAILY #14 tabs 08/02/23 200 mg-tenofovir alafenam 25 mg tablet (Biktarvy) clonazepam 1 mg tablet 1 mg feeding tube DAILY #10 tabs 08/02/23 diphenhydramine HCl 25 mg tablet 25 mg feeding tube BEDTIME #20 tabs 08/02/23 (Banophen) ferrous gluconate 324 mg (38 mg 324 mg feeding tube DAILY #14 tabs 08/02/23 iron) tablet gabapentin 600 mg tablet 600 mg feeding tube TID #20 tabs 08/02/23 mirtazapine 30 mg tablet 60 mg (2 x 30 mg) feeding tube 08/02/23 BEDTIME #20 tabs risperidone 3 mg tablet 3 mg feeding tube BEDTIME #30 tabs 08/02/23 tramadol 50 mg tablet 50 mg feeding tube DAILY PRN Pain 08/02/23 #14 tabs Allergies Allergy/AdvReac Type Severity Reaction Status Date / Time Seasonal Allergies Allergy Intermediate Eye Verified 07/20/23 12:48 Drainage codeine Allergy Mild Rash Verified 07/20/23 12:48 [From Tylenol-Codeine #3] levofloxacin [From Levaquin] Allergy Mild Rash Verified 07/20/23 12:48 metoclopramide [From Reglan] Allergy Mild Rash Verified 07/20/23 12:48 acetaminophen Allergy Unknown Unknown Verified 07/20/23 12:48 [Tylenol-Codeine #3] Penicillins [PENICILLINS] Allergy Unknown Rash Verified 07/20/23 12:48 ibuprofen [From Motrin] AdvReac Unknown Reflux Verified 07/20/23 12:48 Review of Systems 2 Review of Systems: Left-sided headache radiating down all the way to left leg. 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; 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/week [employer]) Alcohol intake: never Patient Tobacco Use Status: Former Tobacco user Tobacco use type: Cigarette Smoked in Last 30 Days: No e-Cigarette/Vaping Use: Never Used Second Hand Smoke Exposure: No Use of substances other than those prescribed or required for medical reasons: No Substance Use Type: Crack/Cocaine Advance Directives: Yes Advance Directives on File: Yes Advance Directives Date on File: 04/25/21 service: No Current occupational status: disabled Physical Exam ED Vital Signs: Vital Signs - 24 hr 09/01/23 15:00 09/01/23 19:26 Temperature 97.8 F 98.0 F Pulse Rate 70 94 Respiratory Rate 16 16 Blood Pressure 126/80 128/82 Pulse Oximetry 92 95 Oxygen Delivery Method Room Air Room Air BMI result Body Mass Index 16.7 Const General: cooperative, healthy appearing, comfortable, no acute distress, well developed, alert, awake and Physically active Orientation/consciousness: oriented to person, oriented to place, oriented to time and patient oriented x3 [facility] Head: Yes normal to inspection, Yes No palpable skull fracture present, Yes normocephalic, Yes atraumatic, No abrasion, No Acrocyanosis present, No Grullon's sign, No contusion, No cranial bruits, No hematoma, No laceration, No occipital foramen tenderness, No palpable skull fracture, No raccoon eyes, No scalp lesion, No scalp tenderness, No Temporal artery tenderness present and No periorbital ecchymosis Ears: hearing grossly normal bilaterally, external ears normal, TM's normal bilaterally, TM normal on the right, TM normal on the left, EAC's normal, mastoids normal and no periauricular adenopathy Throat: Yes posterior oropharynx normal, Yes tonsils normal and Yes uvula midline Eyes General: appearance normal, both eyes and all related structures Neck Neck: Yes normal visual inspection, Yes full ROM, Yes no lymphadenopathy, Yes no meningeal signs, Yes trachea midline, Yes supple, No anterior neck swelling and No tender Chest Chest palpation & inspection: normal inspection of the chest and normal palpation of entire chest wall Resp Effort & Inspection: normal respiratory effort and able to speak in complete sentences Auscultation: clear to auscultation bilaterally Cardio Jugular venous distension: no JVD Heart sounds: S1 normal heart sound present and S2 normal heart sound present GI Other: Patient has G2 tube Inspection: Yes normal to inspection Palpation (GI): Soft to palpation, not firm, nontender, no guarding and not rigid General: No CVA tenderness and Yes no CVA tenderness Back/Spine/Pelvis Back: no CVA tenderness, No CVA tenderness and No back tenderness Skin General skin exam: no rashes or lesions noted, elasticity normal and turgor normal Neuro General: oriented to person, oriented to place, oriented to time, patient oriented x3, gait normal, tone normal, moves all extremities, Normal light touch and pain sensation, no meningeal signs, no focal motor deficits, CN's II-XI intact bilaterally and normal sensation to monofilament Extrem General: Yes normal to inspection and Yes full ROM Psych Appearance: grossly normal, well kempt and not disheveled Medications Administered Discontinued Medications Generic Name Dose Route Start Last Admin Trade Name Akira PRN Reason Stop Dose Admin Diphenhydramine HCl 50 mg 09/01/23 16:51 09/01/23 17:15 Diphenhydramine Hcl 25 Mg Capsule PO 09/01/23 16:52 50 mg ONCE ONE Administration Oxycodone HCl 5 mg 09/01/23 17:04 09/01/23 17:15 Oxycodone Hcl Immed Release 5 Mg Tablet PO 09/01/23 17:05 5 mg ONCE ONE Administration Medical Decision Making Medical Decision Making [facility] Narrative: 58-year-old male with past medical history of hepatitis, of the further thrive, dysphagia, pneumonia, has a G-tube presents to ED for left-sided headache the past 2 days radiating down left arm and left lower extremities. Denies any trauma or any neuro deficits. Patient denies any blurry vision or change in vision. Patient denies any recent trauma. Initial labs are normal. Unlikely brain bleed was sent for head CT scan. We will do EKG troponin due to patient stating left-sided headache for the past 2 days radiating down left arm and going down left leg. 7:58Pm: Patient's 2 troponins negative. EKG negative STEMI. Head CT scan negative for any brain bleed or stroke. NIH score 0. Cervical spine positive for cervical radiculopathy. Not suspecting meningitis. left sided Headache radiationg down to legs for 2 days without any blurry vision or loss of vision. Not suspecting temporal arthritis. Negative for temporal artery tenderness. not suspecting glaucoma. patient safe for discharge. chest x-ray normal. headache resolved with oxycodone and Benadryl Differential Diagnosis Differential Diagnoses: The differential diagnosis associated with the presentation includes ( headache, brain bleed, meningitis, ) Admission/Observation Consideration of admission/observation: Escalation of care including admission/observation considered Lab Data [facility] Lab Attestation statement: I reviewed the patient's lab results. 09/01/23 15:28 09/01/23 15:28 Labs: Lab Results 09/01/23 09/01/23 09/01/23 Range/Units 15:25 15:28 17:21 WBC 3.9 L (4.8-10.8) X10*3/uL RBC 4.40 L (4.60-5.80) X10*6/uL Hgb 13.7 L (14.0-18.0) g/dl Hct 40.5 L (42.0-52.0) % MCV 92.0 (80.0-98.0) fL MCH 31.1 (27.0-33.0) pg MCHC 33.8 (31.0-36.0) g/dl RDW 13.8 (11.0-16.0) % Plt Count 181 (160-400) X10*3/uL MPV 11.9 (9.4-12.4) fL Immature Gran % (Auto) 0.0 (0.0-0.4) % Neut % (Auto) 41.6 L (45-73) % Lymph % (Auto) 40.6 H (20-40) % [place] % (Auto) 14.2 H (2-11) % Eos % (Auto) 2.8 (0-4) % Baso % (Auto) 0.8 (0-2) % Lymph # (Auto) 1.6 (1.2-4.9) X10*3/uL [place] # (Auto) 0.6 (0.1-1.2) X10*3/uL Eos # (Auto) 0.1 (0.0-0.4) X10*3/uL Baso # (Auto) 0.0 (0.0-0.2) X10*3/uL Abs Immat Gran (auto) 0.00 (0.00-0.03) X10*3/uL Absolute Neuts (auto) 1.6 L (2.0-8.3) x10*3/uL Absolute Nucleated RBC 0.000 (0.0-0.012) X10*3/uL Nucleated RBC % (auto) 0.0 (0.0-0.2) /100WBC PT 12.4 (11.1-13.3) SEC INR 1.0 (0.9-1.1) APTT 32.1 (26.0-36.4) SEC Sodium 138 (135-145) mmol/L Potassium 3.8 (3.3-5.1) mmol/L Chloride 105 (96-108) mmol/L Carbon Dioxide 25 (22-29) mmol/L Anion Gap 12 (12-20) BUN 25 H (9-16) mg/dL Creatinine 0.77 (0.5-1.4) mg/dL Estim Creat Clear Calc 72.7 Estimated GFR > 60 Random Glucose 107 (60-115) mg/dL Calcium 8.9 (8.4-10.2) mg/dL Magnesium 1.8 (1.6-2.6) mg/dL Total Bilirubin 0.3 (0.0-1.0) mg/dL AST 22 (5-37) U/L ALT 45 H (0-40) U/L Alkaline Phosphatase 61 (39-117) U/L Troponin I High Sens < 2.7 (<3.5-35.0) ng/L Total Protein 7.1 (6.5-8.0) g/dL Albumin 3.8 (3.5-5.0) g/dL Urine Color Urine Appearance Urine pH (5.0-9.0) Ur Specific [place] (1.005-1.025) Urine Protein (Neg-Trace) mg/dL Urine Glucose (UA) (Negative) mg/dL Urine Ketones (Negative) mg/dL Urine Blood (Negative) Urine Nitrite (Negative) Ur Leukocyte Esterase (Negative) COVID-19 (TAMMIE) Negative (Negative) COVID-19 Clin Com See Note Influenza Type A (KEVON) Negative (Negative) Influenza Type B (KEVON) Negative (Negative) Influenza A & B Note See Note 09/01/23 Range/Units 19:23 WBC (4.8-10.8) X10*3/uL RBC (4.60-5.80) X10*6/uL Hgb (14.0-18.0) g/dl Hct (42.0-52.0) % MCV (80.0-98.0) fL MCH (27.0-33.0) pg MCHC (31.0-36.0) g/dl RDW (11.0-16.0) % Plt Count (160-400) X10*3/uL MPV (9.4-12.4) fL Immature Gran % (Auto) (0.0-0.4) % Neut % (Auto) (45-73) % Lymph % (Auto) (20-40) % [place] % (Auto) (2-11) % Eos % (Auto) (0-4) % Baso % (Auto) (0-2) % Lymph # (Auto) (1.2-4.9) X10*3/uL [place] # (Auto) (0.1-1.2) X10*3/uL Eos # (Auto) (0.0-0.4) X10*3/uL Baso # (Auto) (0.0-0.2) X10*3/uL Abs Immat Gran (auto) (0.00-0.03) X10*3/uL Absolute Neuts (auto) (2.0-8.3) x10*3/uL Absolute Nucleated RBC (0.0-0.012) X10*3/uL Nucleated RBC % (auto) (0.0-0.2) /100WBC PT (11.1-13.3) SEC INR (0.9-1.1) APTT (26.0-36.4) SEC Sodium (135-145) mmol/L Potassium (3.3-5.1) mmol/L Chloride (96-108) mmol/L Carbon Dioxide (22-29) mmol/L Anion Gap (12-20) BUN (9-16) mg/dL Creatinine (0.5-1.4) mg/dL Estim Creat Clear Calc Estimated GFR Random Glucose (60-115) mg/dL Calcium (8.4-10.2) mg/dL Magnesium (1.6-2.6) mg/dL Total Bilirubin (0.0-1.0) mg/dL AST (5-37) U/L ALT (0-40) U/L Alkaline Phosphatase (39-117) U/L Troponin I High Sens < 2.7 (<3.5-35.0) ng/L Total Protein (6.5-8.0) g/dL Albumin (3.5-5.0) g/dL Urine Color Yellow Urine Appearance Clear Urine pH 7.0 (5.0-9.0) Ur Specific [place] 1.010 (1.005-1.025) Urine Protein Negative (Neg-Trace) mg/dL Urine Glucose (UA) Negative (Negative) mg/dL Urine Ketones Negative (Negative) mg/dL Urine Blood Negative (Negative) Urine Nitrite Negative (Negative) Ur Leukocyte Esterase Negative (Negative) COVID-19 (TAMMIE) (Negative) COVID-19 Clin Com Influenza Type A (KEVON) (Negative) Influenza Type B (KEVON) (Negative) Influenza A & B Note ABG Data Attestation ABG: I personally reviewed and interpreted this ABG as follows: Independent Interpretation I performed an independent interpretation of an: EKG ( normal sinus. Incomplete bundle branch block. Negative), Plain X-Ray and CT Scan Radiology Impression Discussion of test interpretation with radiology: I have reviewed the radiologist's reading. Independent Historian Clinical information obtained from an independent historian. History obtained from or confirmed by: Other (Prior visits) External Record Review External record reviewed: Other (Prior Visits) Discharge Plan Discharge Clinical Impression: Headache Patient Disposition: Xfer Inpatient Rehab Fac Transfer Details: BACK TO [facility] Instructions: General Headache (ED) Additional Instructions: please follow-up with primary care provider. Return to the ED for any worsening headache, slurred speech, facial droop, paralysis of extremities, nausea, vomiting, loss of vision, chest pain, shortness of breath, neck stiffness, fever, chills, or any other concerning symptoms. Prescriptions: No Action latanoprost 0.005 % drops 1 drp ophthalmic (eye) DAILY albuterol sulfate 90 mcg/actuation HFA aerosol inhaler 2 puff inhalation Q6H PRN (Reason: wheezing) gabapentin 600 mg tablet 600 mg feeding tube TID Qty: 20 0RF clonazepam 1 mg tablet 1 mg feeding tube DAILY Qty: 10 0RF amlodipine 5 mg tablet 5 mg feeding tube DAILY Qty: 30 0RF tramadol 50 mg tablet 50 mg feeding tube DAILY PRN (Reason: Pain) Qty: 14 0RF risperidone 3 mg tablet 3 mg feeding tube BEDTIME Qty: 30 0RF mirtazapine 30 mg tablet 60 mg feeding tube BEDTIME Qty: 20 0RF diphenhydramine HCl [Banophen] 25 mg tablet 25 mg feeding tube BEDTIME Qty: 20 0RF ferrous gluconate 324 mg (38 mg iron) tablet 324 mg feeding tube DAILY Qty: 14 0RF Rx Instructions: PATIENT STOP TAKING BECAUSE CONSTIPATION . HE IS AWARE HE SHOULD BE TAKING MED . Biktarvy 50-200-25 mg tablet 1 tab PO DAILY Qty: 14 0RF Rx Instructions: Ok to crush and give via feeding tube fluticasone propion-salmeterol [Advair HFA] 230-21 mcg/actuation HFA aerosol inhaler 2 puff inhalation BID brimonidine-timolol 0.2-0.5 % drops 1 drp ophthalmic (eye) BID Referrals: [facility] [Outside] Terese Rivera MD [Physician] - Interventions: ED Discharge Assessment Last Done: 09/01/23 22:24 Discharge Date/Time: 09/01/23 22:23 Print Language: Citizen Of [place]
[2023-09-01] MEDS: oxyCODONE HCl Immed Release 5 MG TABLET PO (17:15)
[2023-09-01] MEDS: diphenhydrAMINE HCL 25 MG CAPSULE 50 MG PO (17:15)
[2023-09-01 17:35] LABS: Prothrombin Time 12.4 SEC (11.1-13.3)
[2023-09-01 17:38] LABS: Partial Thromboplastin Time 32.1 SEC (26.0-36.4)
[2023-09-01 17:58] LABS: Troponin-I High Sensitivity < 2.7 ng/L (<3.5-35.0)
--- NOTE | 2023-09-01 19:13 | PC.NURSE ---
this rn assumed care of pt. this rn assisted pt to stand at bedside to urinate in urinal. pt stood with steady gait, denied pain and dizziness. pt urinated 200ml of yellow urine. pt repositioned into bed.
[2023-09-01 19:26] VITALS: BP 128/82; PULSE 94; RESP 16; TEMP 36.7; O2SAT 95
[2023-09-01 19:32] LABS: Appearance Urine Clear; Color Urine Yellow; Glucose Urine UA Negative (Negative); Leukocyte Esterase Urine Negative (Negative); Nitrite Urine Negative (Negative); Urine Blood Negative (Negative); Urine Ketones Negative (Negative); Urine Protein Negative (Neg-Trace)
[2023-09-01 19:51] LABS: Troponin-I High Sensitivity < 2.7 ng/L (<3.5-35.0)
--- NOTE | 2023-09-01 20:51 | PC.NURSE ---
report given to [facility] nurse. no questions at this time.
--- NOTE | 2023-09-01 22:23 | PC.NURSE ---
ems at bedside to transport pt to [facility].
== END 2023-09-01 22:23 ==
PROVIDERS: Physician Assistant; Physician Assistant Medical; Emergency Provider Emergency Medicine
DX: R51.9 Headache, unspecified (principal); M79.605 Pain in left leg; M79.604 Pain in right leg; M54.12 Radiculopathy, cervical region; M54.50 Low back pain, unspecified; I45.10 Unspecified right bundle-branch block; Z11.52 Encounter for screening for COVID-19; Z20.822 Contact with and (suspected) exposure to COVID-19; Z79.899 Other long term (current) drug therapy
CPT/HCPCS: 36415; 70450; 71045; 72125; 80053; 81003; 83735; 84484; 85025; 85610; 85730; 87502; 87635; 93005; 99284

== ENCOUNTER → 2023-09-01 16:44 | Outpatient (BNV) | payer OTHER, SELFPAY | PROVIDERS: Emergency Provider Emergency Medicine; Visit Provider Internal Medicine Cardiovascular Disease | DX: I45.10 Unspecified right bundle-branch block (principal) | CPT/HCPCS: 93010 ==

== ENCOUNTER 2023-10-02 10:23 | Outpatient (REF) | payer OTHER, SELFPAY ==
[2023-10-02 11:40] LABS: MANUAL DIFF FLAG NO
[2023-10-02 12:03] LABS: Basophils Absolute Auto 0.1 X10*3/uL (0.0-0.2); Basophils Percent Auto 1.2 % (0-2); Eosinophils Absolute Auto 0.1 X10*3/uL (0.0-0.4); Eosinophils Percent Auto 2.7 % (0-4); Hematocrit 43.5 % (42.0-52.0); Hemoglobin 14.6 g/dl (14.0-18.0); Imm Gran Abs Auto 0.01 X10*3/uL (0.00-0.03); Imm Gran Pct Auto 0.2 % (0.0-0.4); Lymphocytes Absolute Auto 1.5 X10*3/uL (1.2-4.9); Lymphocytes Percent Auto 28.1 % (20-40); Mean Corpuscular HGB Conc 33.6 g/dl (31.0-36.0); Mean Corpuscular Hemoglobin 31.3 pg (27.0-33.0); Mean Corpuscular Volume 93.1 fL (80.0-98.0); Mean Platelet Volume 11.5 fL (9.4-12.4); Monocytes Absolute Auto 0.6 X10*3/uL (0.1-1.2); Monocytes Percent Auto 11.6 % (2-11); Neutrophils Absolute Auto 2.9 x10*3/uL (2.0-8.3); Neutrophils Percent Auto 56.2 % (45-73); Platelet Count 216 X10*3/uL (160-400); Red Blood Count 4.67 X10*6/uL (4.60-5.80); White Blood Count 5.2 X10*3/uL (4.8-10.8)
[2023-10-02 12:32] LABS: Alanine Aminotransferase 37 U/L (0-40); Anion Gap 12 (12-20); Aspartate Amino Transferase 28 U/L (5-37); Carbon Dioxide 27 mmol/L (22-29); Chloride 104 mmol/L (96-108); Estimated Glomerular Filt Rate > 60; Potassium 4.4 mmol/L (3.3-5.1); Sodium 139 mmol/L (135-145)
[2023-10-02 12:49] LABS: HBsAGNum1 0.29 S/CO (0.00-0.99); Hepatitis B Surface Antigen Negative (Negative)
[2023-10-02 13:26] LABS: Syphilis Screen Nonreactive (Nonreactive)
[2023-10-02 13:47] LABS: CT PCR NOT DETECTED (Not Detect.); NG PCR NOT DETECTED (Not Detect.)
[2023-10-04 10:18] LABS: Absolute CD3 Count 1327 cells/uL (840-3060); Absolute CD4 Count 627 cells/uL (490-1740); Absolute CD8 Count 780 cells/uL (180-1170); Absolute Lymphocytes 1646 cells/uL (850-3900); Percent CD3 Cells 81 % (57-85); Percent CD4 Cells 38 % (30-61); Percent CD8 Cells 47 % (12-42)
[2023-10-04 14:13] LABS: HCV Log PCR <1.18 NOT DETECTED Log IU/mL (NOT DETECTED); HepC Viral Load <15 NOT DETECTED IU/mL (NOT DETECTED)
[2023-10-04 14:44] LABS: HIV RNA PCR Qn Copies NOT DETECTED copies/mL (NOT DETECTED); HIV RNA PCR Qn Log Copies NOT DETECTED (NOT DETECTED)
[2023-10-05 08:53] LABS: TS Negative Control Passed; TS Panel A 0; TS Panel B 0; TS Positive Control Passed; TSpotTB Negative (Negative)
== END 2023-10-02 10:24 | disposition home or self-care (01) ==
LOC: HO.LAB 10:23
PROVIDERS: PCP Student in an Organized Health Care Education/Training Program; Visit Provider Internal Medicine Infectious Disease
DX: B20 Human immunodeficiency virus [HIV] disease (principal)
CPT/HCPCS: 0353U; 80051; 82565; 84450; 84460; 85025; 86359; 86360; 86481; 86780; 87340; 87522; 87536

== ENCOUNTER 2023-10-14 19:26 | Inpatient (IN) | payer OTHER, SELFPAY ==
--- NOTE | ~2023-10-14 | XR_ITS ---
EXAMINATION: XR CHEST CLINICAL INFORMATION: Rule out aspiration COMPARISON: 09/01/2023 TECHNIQUE: Frontal view of the chest was obtained. FINDINGS: Lung volumes are symmetric. Mild subsegmental atelectasis is suspected at the left lung base. No additional consolidation is seen. No evidence of pneumothorax, pleural effusion, or pulmonary edema. The cardiomediastinal contour is unremarkable. Clips overlie the left hilar region. No acute osseous findings are seen. XR/XR chest 1V IMPRESSION: Mild left basilar atelectasis without additional consolidation.
--- NOTE | ~2023-10-14 | CT_ITS ---
EXAMINATION: CT CHEST WITHOUT CONTRAST CLINICAL INFORMATION: New hypoxia. Tube feeding. Aspiration risk. COMPARISON: Multiple priors with the last chest x-ray of 10/15/[address] of 07/15/2023 TECHNIQUE: Multidetector volumetric CT imaging of the chest was done. Axial MIP volume rendering provided. Sagittal and coronal reformatted images were obtained. This CT examination was performed using dose optimization techniques as appropriate, variously including the following: *Automated exposure control *Adjustment of mA and/or kV according to patient size (this includes techniques or standardized protocols for targeted exams where dose is matched to indication/reason for exam; i.e. extremities or head) *Use of iterative reconstruction technique DLP: 236 mGy-cm FINDINGS: LUNGS: Evaluation is limited due to presence of multiple respiratory motion artifacts. Diffuse bronchial thickening is noted. Bilateral lower lobe airspace opacities are noted posteriorly which are new compared to previous CT scan. Within the limits of study, no significant pulmonary nodules or masses are seen. MEDIASTINUM: Small amount of layering debris is noted in the trachea and mainstem bronchi. Trachea and mainstem bronchi are otherwise well-aerated. No evidence of mediastinal or hilar lymphadenopathy. Cardiac size is normal. Aorta and central pulmonary arteries are normal in caliber. Trace pericardial fluid versus pericardial thickening in the lower chest anteriorly. Small hiatal hernia. CORONARY ARTERY CALCIFICATION: [id number] calcifications of the left anterior descending coronary artery are seen. PLEURA: There is no pleural effusion. No pleural mass or thickening. AXILLA: No lymphadenopathy. UPPER ABDOMEN: A few bilateral nonobstructing calculi are noted in the visualized portions of the kidney ranging from a few millimeters to 0.4 cm. Thickening of the left adrenal gland is a stable finding when compared to previous chest CT of 12/28/2007. OSSEOUS STRUCTURES: No acute or suspicious osseous lesions are seen. Osteopenia of the spine. Compression deformities of multiple vertebral bodies from T3 to T9 with the most severe moderate compression deformity of T6 are unchanged when compared to previous CT scan of 07/15/2023. Unfused fracture deformity of the posterior segment of the left seventh rib with surrounding postsurgical changes is a stable finding. Additional dedicated left fracture deformities are seen. CT/CT chest wo IV con IMPRESSION: 1. Bilateral lower lobe airspace opacities are new compared to previous CT of 07/15/2023. These findings are nonspecific and may represent atelectasis, aspiration pneumonitis or pneumonia. 2. Small amount of layering debris in the trachea and mainstem bronchi. Diffuse bronchial thickening. 3. Small hiatal hernia. 4. Bilateral nonobstructing renal calculi. 5. Multiple compression deformities of the thoracic spine are stable when compared to previous CT of 07/15/2023. Fleischner guidelines were followed.
[2023-10-14 19:32] VITALS: BP 102/62; PULSE 74; O2SAT 97
[2023-10-14 20:22] VITALS: BP 128/81; PULSE 65; RESP 16; TEMP 36.5; O2SAT 95
--- NOTE | 2023-10-14 20:40 | ED.GENADULT ---
HPI - General Adult General Chief complaint: General Medical Stated complaint: difficulty swallowing. Pt has G tube Time Seen by Provider: 10/14/23 20:08 History of Present Illness HPI narrative: 58 y/o M with PMH of HIV , mild persistent asthma, history HCV, and history empyema of the lung, known dysphagia just had EGD on 07/17 with [facility] - white spots upper esophagus mild candidiasis - speech saw patient and recommended NND +1 nectar thick liquid diet and PEG tube was placed on 07/30 comes back here as unable to get the JVD feeding PEG PLACED 07/30. PT is NPO TOLERATING TUBE FEEDING AT MAX GOAL RATE. JEVITY 1.0 AT MAX GOAL RATE 60ML/HR WITH 120ML FREE WATER FLUSHES Q 8 HRS. PROVIDES 1526KCALS (31KCALS/KG), 63.7G PROTEIN (1.3G/KG), 1562ML TOTAL WATER FROM FORMULA AND FLUSHES (32ML/KG). CONTINUE TF AT MAX GOAL RATE. Electrolytes are normal Related Data Home Medications Medication Instructions Recorded Confirmed latanoprost 0.005 % eye drops 1 drp ophthalmic (eye) DAILY 12/30/22 07/27/23 albuterol sulfate 90 mcg/actuation 2 puff inhalation Q6H PRN wheezing 02/12/23 07/27/23 aerosol inhaler brimonidine 0.2 %-timolol 0.5 % 1 drp ophthalmic (eye) BID 06/01/23 07/27/23 eye drops fluticasone propionate 230 2 puff inhalation BID 06/01/23 07/27/23 mcg-salmeterol 21 mcg/actuation HFA inhaler (Advair HFA) Previous Rx's Medication Instructions Recorded amlodipine 5 mg tablet 5 mg feeding tube DAILY #30 tabs 08/02/23 bictegravir 50 mg-emtricitabine 1 tab PO DAILY #14 tabs 08/02/23 200 mg-tenofovir alafenam 25 mg tablet (Biktarvy) clonazepam 1 mg tablet 1 mg feeding tube DAILY #10 tabs 08/02/23 diphenhydramine HCl 25 mg tablet 25 mg feeding tube BEDTIME #20 tabs 08/02/23 (Banophen) ferrous gluconate 324 mg (38 mg 324 mg feeding tube DAILY #14 tabs 08/02/23 iron) tablet gabapentin 600 mg tablet 600 mg feeding tube TID #20 tabs 08/02/23 mirtazapine 30 mg tablet 60 mg (2 x 30 mg) feeding tube 08/02/23 BEDTIME #20 tabs risperidone 3 mg tablet 3 mg feeding tube BEDTIME #30 tabs 08/02/23 tramadol 50 mg tablet 50 mg feeding tube DAILY PRN Pain 08/02/23 #14 tabs Allergies Allergy/AdvReac Type Severity Reaction Status Date / Time Seasonal Allergies Allergy Intermediate Eye Verified 07/20/23 12:48 Drainage codeine Allergy Mild Rash Verified 07/20/23 12:48 [From Tylenol-Codeine #3] levofloxacin [From Levaquin] Allergy Mild Rash Verified 07/20/23 12:48 metoclopramide [From Reglan] Allergy Mild Rash Verified 07/20/23 12:48 acetaminophen Allergy Unknown Unknown Verified 07/20/23 12:48 [Tylenol-Codeine #3] Penicillins [PENICILLINS] Allergy Unknown Rash Verified 07/20/23 12:48 ibuprofen [From Motrin] AdvReac Unknown Reflux Verified 07/20/23 12:48 PMFSH Past Medical History Medical History Multiple rib fractures History of empyema of pleura (01/05/23) Hypertension Closed fracture of leg Hepatitis C Kidney stones Pleuritic chest pain Pneumonia Substance abuse Hemorrhoids Depression HIV (human immunodeficiency virus infection) Asthma Surgical History H/O hemorrhoidectomy Social History Social History Household Members: Family Household Members Other:: sister Housing: Apartment Do you presently have visiting nurse or other home services: Yes (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; 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/week [employer]) Alcohol intake: never Patient Tobacco Use Status: Former Tobacco user Tobacco use type: Cigarette e-Cigarette/Vaping Use: Never Used Second Hand Smoke Exposure: No Substance Use Type: Crack/Cocaine Advance Directives: Yes Advance Directives on File: Yes Advance Directives Date on File: 04/25/21 service: No Current occupational status: disabled Physical Exam ED Vital Signs: Vital Signs - 24 hr 10/14/23 20:22 10/14/23 22:09 10/14/23 23:17 Temperature 97.7 F 97.9 F 98.0 F Pulse Rate 65 63 62 Respiratory Rate 16 18 18 Blood Pressure 128/81 141/64 H 105/68 Pulse Oximetry 95 97 97 Oxygen Delivery Method Room Air Room Air BMI result Body Mass Index 20.0 Appearance: Alert. Oriented X3. No acute distress. Emaciated thin build ENT: Pharynx normal. Oral Mucosa moist Neck: Normal inspection. Neck supple. CVS: Normal heart rate and rhythm. Pulses normal. Respiratory: No respiratory distress. Equal air entry bilateral, Abdomen: Soft and nontender. Bowel sounds are present, no mass palpable, no CVA tenderness G-tube in place Skin: Skin warm and dry. Normal skin color. Normal skin turgor. Extremities: No lower extremity edema. No calf tenderness Neuro: Alert and awake no focal deficits Medical Decision Making Medical Decision Making [facility] Narrative: Patient with failure to thrive, HIV unable to get his Jevity been given ensure for last 3 weeks will get case management involved so that patient can get his Jevity. Electrolytes are normal Lab Data [facility] Lab Attestation statement: I reviewed the patient's lab results. 10/14/23 23:03 10/14/23 23:03 Labs: Lab Results 10/14/23 Range/Units 23:03 WBC 4.5 L (4.8-10.8) X10*3/uL RBC 4.35 L (4.60-5.80) X10*6/uL Hgb 13.9 L (14.0-18.0) g/dl Hct 40.0 L (42.0-52.0) % MCV 92.0 (80.0-98.0) fL MCH 32.0 (27.0-33.0) pg MCHC 34.8 (31.0-36.0) g/dl RDW 14.6 (11.0-16.0) % Plt Count 177 (160-400) X10*3/uL MPV 11.6 (9.4-12.4) fL Immature Gran % (Auto) 0.2 (0.0-0.4) % Neut % (Auto) 33.3 L (45-73) % Lymph % (Auto) 49.0 H (20-40) % [place] % (Auto) 12.4 H (2-11) % Eos % (Auto) 3.8 (0-4) % Baso % (Auto) 1.3 (0-2) % Lymph # (Auto) 2.2 (1.2-4.9) X10*3/uL [place] # (Auto) 0.6 (0.1-1.2) X10*3/uL Eos # (Auto) 0.2 (0.0-0.4) X10*3/uL Baso # (Auto) 0.1 (0.0-0.2) X10*3/uL Abs Immat Gran (auto) 0.01 (0.00-0.03) X10*3/uL Absolute Neuts (auto) 1.5 L (2.0-8.3) x10*3/uL Absolute Nucleated RBC 0.000 (0.0-0.012) X10*3/uL Nucleated RBC % (auto) 0.0 (0.0-0.2) /100WBC Sodium 142 (135-145) mmol/L Potassium 3.9 (3.3-5.1) mmol/L Chloride 108 (96-108) mmol/L Carbon Dioxide 23 (22-29) mmol/L Anion Gap 15 (12-20) BUN 15 (9-16) mg/dL Creatinine 0.88 (0.5-1.4) mg/dL Estim Creat Clear Calc 71.9 Estimated GFR > 60 Random Glucose 85 (60-115) mg/dL Calcium 8.9 (8.4-10.2) mg/dL Total Bilirubin 0.4 (0.0-1.0) mg/dL AST 23 (5-37) U/L ALT 29 (0-40) U/L Alkaline Phosphatase 63 (39-117) U/L Total Protein 7.2 (6.5-8.0) g/dL Albumin 3.8 (3.5-5.0) g/dL Discharge Plan Discharge Clinical Impression: Adult failure to thrive Patient Disposition: Still a Patient Prescriptions: No Action latanoprost 0.005 % drops 1 drp ophthalmic (eye) DAILY albuterol sulfate 90 mcg/actuation HFA aerosol inhaler 2 puff inhalation Q6H PRN (Reason: wheezing) gabapentin 600 mg tablet 600 mg feeding tube TID Qty: 20 0RF clonazepam 1 mg tablet 1 mg feeding tube DAILY Qty: 10 0RF amlodipine 5 mg tablet 5 mg feeding tube DAILY Qty: 30 0RF tramadol 50 mg tablet 50 mg feeding tube DAILY PRN (Reason: Pain) Qty: 14 0RF risperidone 3 mg tablet 3 mg feeding tube BEDTIME Qty: 30 0RF mirtazapine 30 mg tablet 60 mg feeding tube BEDTIME Qty: 20 0RF diphenhydramine HCl [Banophen] 25 mg tablet 25 mg feeding tube BEDTIME Qty: 20 0RF ferrous gluconate 324 mg (38 mg iron) tablet 324 mg feeding tube DAILY Qty: 14 0RF Rx Instructions: PATIENT STOP TAKING BECAUSE CONSTIPATION . HE IS AWARE HE SHOULD BE TAKING MED . Biktarvy 50-200-25 mg tablet 1 tab PO DAILY Qty: 14 0RF Rx Instructions: Ok to crush and give via feeding tube fluticasone propion-salmeterol [Advair HFA] 230-21 mcg/actuation HFA aerosol inhaler 2 puff inhalation BID brimonidine-timolol 0.2-0.5 % drops 1 drp ophthalmic (eye) BID
[2023-10-14 22:09] VITALS: BP 141/64; PULSE 63; RESP 18; TEMP 36.6; O2SAT 97
--- NOTE | 2023-10-14 23:08 | MHC.EDTECH ---
Patient changed into hospital attire,labs obtained and sent to lab.Belonging list done and copy placed in chart.
[2023-10-14 23:09] LABS: MANUAL DIFF FLAG NO
[2023-10-14 23:10] LABS: Basophils Absolute Auto 0.1 X10*3/uL (0.0-0.2); Basophils Percent Auto 1.3 % (0-2); Eosinophils Absolute Auto 0.2 X10*3/uL (0.0-0.4); Eosinophils Percent Auto 3.8 % (0-4); Hemoglobin 13.9 g/dl (14.0-18.0); Imm Gran Abs Auto 0.01 X10*3/uL (0.00-0.03); Imm Gran Pct Auto 0.2 % (0.0-0.4); Lymphocytes Absolute Auto 2.2 X10*3/uL (1.2-4.9); Mean Corpuscular HGB Conc 34.8 g/dl (31.0-36.0); Mean Platelet Volume 11.6 fL (9.4-12.4); Monocytes Absolute Auto 0.6 X10*3/uL (0.1-1.2); Monocytes Percent Auto 12.4 % (2-11); Neutrophils Absolute Auto 1.5 x10*3/uL (2.0-8.3); Neutrophils Percent Auto 33.3 % (45-73); Platelet Count 177 X10*3/uL (160-400); Red Blood Count 4.35 X10*6/uL (4.60-5.80); Red Cell Distribution Width 14.6 % (11.0-16.0); White Blood Count 4.5 X10*3/uL (4.8-10.8)
[2023-10-14 23:17] VITALS: BP 105/68; PULSE 62; RESP 18; TEMP 36.7; O2SAT 97
[2023-10-14 23:23] LABS: Alanine Aminotransferase 29 U/L (0-40); Albumin Level 3.8 g/dL (3.5-5.0); Alkaline Phosphatase 63 U/L (39-117); Anion Gap 15 (12-20); Aspartate Amino Transferase 23 U/L (5-37); Bilirubin Total 0.4 mg/dL (0.0-1.0); Blood Urea Nitrogen 15 mg/dL (9-16); Calcium 8.9 mg/dL (8.4-10.2); Carbon Dioxide 23 mmol/L (22-29); Chloride 108 mmol/L (96-108); Creatinine Clr Calc Pharmacy 71.9; Estimated Glomerular Filt Rate > 60; Glucose Random 85 mg/dL (60-115); Potassium 3.9 mmol/L (3.3-5.1); Sodium 142 mmol/L (135-145); Total Protein 7.2 g/dL (6.5-8.0)
[2023-10-15] VITALS (14 sets, daily range): BP systolic 101–121; BP diastolic 57–81; PULSE 58–80; RESP 14–22; TEMP 36.4–36.6; O2SAT 93–99
--- NOTE | 2023-10-15 | ECG_ITS ---
Test Reason : CP Blood Pressure : / mmHG Vent. Rate : 067 BPM Atrial Rate : 067 BPM P-R Int : 162 ms QRS Dur : 106 ms QT Int : 408 ms P-R-T Axes : 084 081 063 degrees QTc Int : 431 ms Normal sinus rhythm Incomplete right bundle branch block Borderline ECG When compared with ECG of 01-SEP-2023 17:12, No significant change was found Referred By: Berenice Nagel Electronically Signed By:TALIB LÓPEZ
--- NOTE | 2023-10-15 01:35 | PC.NURSE ---
Pt is arousable with verbal stimuli. Is pleasant and appropriate with staff. Took report from off-going RN at 2300 hrs. Spoke to sister on phone around midnight for clarification regarding tube feeds and access to Jevity. Sister reports that the pt had been getting jevity at home up until 3 weeks ago and then it stopped. In the interim, family has been buying nutrition shakes from local stores and giving them via tube feed at home with syringe. Per sister, pt has not been without nutrition for any extended period of time. Information relayed to provider and pt is pending case management consult in the am.
--- NOTE | 2023-10-15 02:24 | MHC.EDTECH ---
Hourly rounds and vitals completed, Patient is resting comfortably and call jansen in reach
--- NOTE | 2023-10-15 02:30 | PC.NURSE ---
Pt is now reporting chest pain, reports that it started 2 hours ago, but didn't make it known.
--- NOTE | 2023-10-15 02:34 | PC.NURSE ---
Jevity tube feed initiated per dietary order at 20 mL/hr.
--- NOTE | 2023-10-15 03:28 | PC.NURSE ---
SPO2 noted to be 86-87% on room air. Pt put on oxygen via NC at 2 LPM. Will continue to monitor.
--- NOTE | 2023-10-15 04:54 | MHC.EDTECH ---
Hourly rounds and vitals completed,patient is resting comfortably at this time. 1-1 sitter at bedside
--- NOTE | 2023-10-15 06:09 | PC.NURSE ---
Pt is sleeping in semi-boyer's position, appears comfortable. No acute distress noted. Suction is within reach and pt has an active tube feeding running at 20 mL/hr. Pt was put on O2 via NC at 2 lpm for low SPO2 in the 80s, improved to 95%. Pt is pending case management consult.
--- NOTE | 2023-10-15 06:14 | MHC.EDTECH ---
Hourly rounds and vitals completed,patient is resting comfortably at this time and call jansen in reach.
--- NOTE | 2023-10-15 07:25 | PC.NURSE ---
pt awake, alert and oriented. Breathing slightly elevated, pt noted to be on 2L O2 via NC placed by previous nurse for low SPO2 at night. Pt noted to have cough, able to suction himself. Pt reports chest pain X4 hours, sharp with breathing at this time in the center of his chest.
[2023-10-15] MEDS: Albuterol/Iprat 2.5/0.5MG 3 ML AMPUL.NEB INHALE ×4 (07:27→19:35)
--- NOTE | 2023-10-15 07:29 | ECG_ITS ---
Test Reason : CHEST PAIN Blood Pressure : / mmHG Vent. Rate : 062 BPM Atrial Rate : 062 BPM P-R Int : 172 ms QRS Dur : 102 ms QT Int : 420 ms P-R-T Axes : 073 072 053 degrees QTc Int : 426 ms Normal sinus rhythm Incomplete right bundle branch block Borderline ECG When compared with ECG of 15-OCT-2023 02:40, No significant change was found Referred By: Lauren Macdonald Electronically Signed By:TALIB LÓPEZ
--- NOTE | 2023-10-15 07:29 | PC.NURSE ---
Provider aware of pts chest pain. RT at bedside at this time.
--- NOTE | 2023-10-15 07:30 | ED.GENADULT ---
HPI - General Adult General Chief complaint: General Medical Stated complaint: difficulty swallowing. Pt has G tube Time Seen by Provider: 10/14/23 20:08 Related Data Home Medications Medication Instructions Recorded Confirmed latanoprost 0.005 % eye drops 1 drp ophthalmic (eye) DAILY 12/30/22 07/27/23 albuterol sulfate 90 mcg/actuation 2 puff inhalation Q6H PRN wheezing 02/12/23 07/27/23 aerosol inhaler brimonidine 0.2 %-timolol 0.5 % 1 drp ophthalmic (eye) BID 06/01/23 07/27/23 eye drops fluticasone propionate 230 2 puff inhalation BID 06/01/23 07/27/23 mcg-salmeterol 21 mcg/actuation HFA inhaler (Advair HFA) Previous Rx's Medication Instructions Recorded amlodipine 5 mg tablet 5 mg feeding tube DAILY #30 tabs 08/02/23 bictegravir 50 mg-emtricitabine 1 tab PO DAILY #14 tabs 08/02/23 200 mg-tenofovir alafenam 25 mg tablet (Biktarvy) clonazepam 1 mg tablet 1 mg feeding tube DAILY #10 tabs 08/02/23 diphenhydramine HCl 25 mg tablet 25 mg feeding tube BEDTIME #20 tabs 08/02/23 (Banophen) ferrous gluconate 324 mg (38 mg 324 mg feeding tube DAILY #14 tabs 08/02/23 iron) tablet gabapentin 600 mg tablet 600 mg feeding tube TID #20 tabs 08/02/23 mirtazapine 30 mg tablet 60 mg (2 x 30 mg) feeding tube 08/02/23 BEDTIME #20 tabs risperidone 3 mg tablet 3 mg feeding tube BEDTIME #30 tabs 08/02/23 tramadol 50 mg tablet 50 mg feeding tube DAILY PRN Pain 08/02/23 #14 tabs Allergies Allergy/AdvReac Type Severity Reaction Status Date / Time Seasonal Allergies Allergy Intermediate Eye Verified 07/20/23 12:48 Drainage codeine Allergy Mild Rash Verified 07/20/23 12:48 [From Tylenol-Codeine #3] levofloxacin [From Levaquin] Allergy Mild Rash Verified 07/20/23 12:48 metoclopramide [From Reglan] Allergy Mild Rash Verified 07/20/23 12:48 acetaminophen Allergy Unknown Unknown Verified 07/20/23 12:48 [Tylenol-Codeine #3] Penicillins [PENICILLINS] Allergy Unknown Rash Verified 07/20/23 12:48 ibuprofen [From Motrin] AdvReac Unknown Reflux Verified 07/20/23 12:48 [facility] Past Medical History Medical History Multiple rib fractures History of empyema of pleura (01/05/23) Hypertension Closed fracture of leg Hepatitis C Kidney stones Pleuritic chest pain Pneumonia Substance abuse Hemorrhoids Depression HIV (human immunodeficiency virus infection) Asthma Surgical History H/O hemorrhoidectomy Social History Social History Household Members: Family Household Members Other:: sister Housing: Apartment Do you presently have visiting nurse or other home services: Yes (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; 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/week [employer]) Alcohol intake: never Patient Tobacco Use Status: Former Tobacco user Tobacco use type: Cigarette e-Cigarette/Vaping Use: Never Used Second Hand Smoke Exposure: No Substance Use Type: Crack/Cocaine Advance Directives: Yes Advance Directives on File: Yes Advance Directives Date on File: 04/25/21 service: No Current occupational status: disabled Physical Exam ED Vital Signs: Vital Signs - 24 hr 10/14/23 20:22 10/14/23 22:09 10/14/23 23:17 Temperature 97.7 F 97.9 F 98.0 F Pulse Rate 65 63 62 Respiratory Rate 16 18 18 Blood Pressure 128/81 141/64 H 105/68 Pulse Oximetry 95 97 97 Oxygen Delivery Method Room Air Room Air Oxygen Flow Rate 10/15/23 02:24 10/15/23 03:26 10/15/23 04:59 Temperature 97.6 F 97.8 F 97.6 F Pulse Rate 64 62 68 Respiratory Rate 18 16 16 Blood Pressure 117/78 121/74 107/72 Pulse Oximetry 96 97 95 Oxygen Delivery Method Room Air Nasal Cannula Nasal Cannula Oxygen Flow Rate 2 10/15/23 06:13 10/15/23 07:27 Temperature 97.7 F Pulse Rate 60 58 Respiratory Rate 18 20 Blood Pressure 108/74 Pulse Oximetry 95 Oxygen Delivery Method Nasal Cannula Oxygen Flow Rate 2 BMI result Body Mass Index 20.0 Course Course Course Narrative: 10/15/23 7:30 Patient on physician observation. Complaining of chest pain for the past 4 hours, just notified of this by RN at this time. EKG and troponin ordered, CT chest ordered by previous provider is pending. Medications Administered Discontinued Medications Generic Name Dose Route Start Last Admin Trade Name Freq PRN Reason Stop Dose Admin Albuterol/Ipratropium 3 ml 10/15/23 07:23 10/15/23 07:27 Albuterol/Iprat 2.5/0.5mg 3 Ml Ampul.Neb INHALE 10/15/23 07:24 3 ml ONCE ONE Administration Medical Decision Making Lab Data 10/14/23 23:03 10/14/23 23:03 Labs: Lab Results 10/14/23 Range/Units 23:03 WBC 4.5 L (4.8-10.8) X10*3/uL RBC 4.35 L (4.60-5.80) X10*6/uL Hgb 13.9 L (14.0-18.0) g/dl Hct 40.0 L (42.0-52.0) % MCV 92.0 (80.0-98.0) fL MCH 32.0 (27.0-33.0) pg MCHC 34.8 (31.0-36.0) g/dl RDW 14.6 (11.0-16.0) % Plt Count 177 (160-400) X10*3/uL MPV 11.6 (9.4-12.4) fL Immature Gran % (Auto) 0.2 (0.0-0.4) % Neut % (Auto) 33.3 L (45-73) % Lymph % (Auto) 49.0 H (20-40) % [place] % (Auto) 12.4 H (2-11) % Eos % (Auto) 3.8 (0-4) % Baso % (Auto) 1.3 (0-2) % Lymph # (Auto) 2.2 (1.2-4.9) X10*3/uL [place] # (Auto) 0.6 (0.1-1.2) X10*3/uL Eos # (Auto) 0.2 (0.0-0.4) X10*3/uL Baso # (Auto) 0.1 (0.0-0.2) X10*3/uL Abs Immat Gran (auto) 0.01 (0.00-0.03) X10*3/uL Absolute Neuts (auto) 1.5 L (2.0-8.3) x10*3/uL Absolute Nucleated RBC 0.000 (0.0-0.012) X10*3/uL Nucleated RBC % (auto) 0.0 (0.0-0.2) /100WBC Sodium 142 (135-145) mmol/L Potassium 3.9 (3.3-5.1) mmol/L Chloride 108 (96-108) mmol/L Carbon Dioxide 23 (22-29) mmol/L Anion Gap 15 (12-20) BUN 15 (9-16) mg/dL Creatinine 0.88 (0.5-1.4) mg/dL Estim Creat Clear Calc 71.9 Estimated GFR > 60 Random Glucose 85 (60-115) mg/dL Calcium 8.9 (8.4-10.2) mg/dL Total Bilirubin 0.4 (0.0-1.0) mg/dL AST 23 (5-37) U/L ALT 29 (0-40) U/L Alkaline Phosphatase 63 (39-117) U/L Total Protein 7.2 (6.5-8.0) g/dL Albumin 3.8 (3.5-5.0) g/dL Discharge Plan Discharge Clinical Impression: Adult failure to thrive Patient Disposition: Still a Patient Prescriptions: No Action latanoprost 0.005 % drops 1 drp ophthalmic (eye) DAILY albuterol sulfate 90 mcg/actuation HFA aerosol inhaler 2 puff inhalation Q6H PRN (Reason: wheezing) gabapentin 600 mg tablet 600 mg feeding tube TID Qty: 20 0RF clonazepam 1 mg tablet 1 mg feeding tube DAILY Qty: 10 0RF amlodipine 5 mg tablet 5 mg feeding tube DAILY Qty: 30 0RF tramadol 50 mg tablet 50 mg feeding tube DAILY PRN (Reason: Pain) Qty: 14 0RF risperidone 3 mg tablet 3 mg feeding tube BEDTIME Qty: 30 0RF mirtazapine 30 mg tablet 60 mg feeding tube BEDTIME Qty: 20 0RF diphenhydramine HCl [Banophen] 25 mg tablet 25 mg feeding tube BEDTIME Qty: 20 0RF ferrous gluconate 324 mg (38 mg iron) tablet 324 mg feeding tube DAILY Qty: 14 0RF Rx Instructions: PATIENT STOP TAKING BECAUSE CONSTIPATION . HE IS AWARE HE SHOULD BE TAKING MED . Biktarvy 50-200-25 mg tablet 1 tab PO DAILY Qty: 14 0RF Rx Instructions: Ok to crush and give via feeding tube fluticasone propion-salmeterol [Advair HFA] 230-21 mcg/actuation HFA aerosol inhaler 2 puff inhalation BID brimonidine-timolol 0.2-0.5 % drops 1 drp ophthalmic (eye) BID
[2023-10-15] MEDS: Piperacillin Sodium/Tazobactam 3.375 GM in 0.9 % Sodium Chloride 50 ML IV (09:04)
[2023-10-15 09:21] LABS: Lactic Acid 1.2 mmol/L (0.5-2.0)
[2023-10-15 09:36] LABS: Troponin-I High Sensitivity < 2.7 ng/L (<3.5-35.0)
[2023-10-15] MEDS: Doxycycline Hyclate 100 MG in 0.9 % Sodium Chloride 250 ML 166.67 MG IV (09:50)
--- NOTE | 2023-10-15 11:10 | PC.NURSE ---
pt reports worsening chest pain in sternal area, sharp, +cough with pt able to clear his own secretions. pt requesting pain meds, provider aware.
[2023-10-15] MEDS: Ketorolac Tromethamine 15 MG/ML VIAL IVPUSH (11:22)
--- NOTE | 2023-10-15 11:47 | PM.IMHP ---
History of Present Illness Date of Service: 10/15/23 Attending physician on admission: [facility] Chief Complaint: dysphagia 57 year old male with history of HIV compliant with biktarvy, htn, hx substance abuse, moderate persistent asthma, hx hepatitis C , dysphagia with g tube in place presented to the ED yesterday for evaluation of dysphagia. The patient had previously been on tube feeds which were discontinued due to insurance authorization. The patient's family had been feeding puree diet but patient has been experiencing dysphagia. He states for the last 4 days has also felt sob with dry cough with pleuritic midsternal chest pain. Denies fevers, chills, sore throat, congestion, abd pain, n/v/d, lightheadedness, or chest pressure. He follows with Dr. Alvarez in infectious disease and is compliant with anti retrovirals. Last CD4 count was 627. On arrival VSS. Has been placed in physician observation with tube feeds resumed and had been scheduled for transfer to [facility] but became hypoxic to 86% on RA and was placed on 2 L supplemental O2. Labs from last night did not reveal any leukocytosis, mild leukopenia of 4.5. Renal function, lytes normal. CT chest this morning showed bilateral lower lobe airspace opacities possibly representing atelectasis, aspiration pneumonitis, or pneumonia as well as small amount of laying debris in trachea and mainstem bronchi with diffuse bronchial thickening. In the ED, given zosyn and doxycycline. Review of Systems Review of Systems: General: No fevers, malaise, unintentional weight loss HEENT: No blurred vision, diplopia. No sore throat, nasal congestion, rhinorrhea, sinus pain, ear pain Cardiovascular: +chest pain. No palpitations, or leg edema Respiratory: +cough, +sob. No wheezing GI: +dysphagia. No abdominal pain, nausea, vomiting, diarrhea, constipation, melena, hematochezia : No dysuria, hematuria, increased urinary frequency, decreased urinary output MSK: No myalgia, back pain Neuro: No headaches, weakness, paresthesias Skin: No rashes or lesions [facility] Medical History Multiple rib fractures History of empyema of pleura (01/05/23) Hypertension Closed fracture of leg Hepatitis C Kidney stones Pleuritic chest pain Pneumonia Substance abuse Hemorrhoids Depression HIV (human immunodeficiency virus infection) Asthma Surgical History H/O hemorrhoidectomy Social History Household Members: Family Household Members Other:: sister Housing: Apartment Do you presently have visiting nurse or other home services: Yes Alcohol intake: never Patient Tobacco Use Status: Former Tobacco user Tobacco use type: Cigarette e-Cigarette/Vaping Use: Never Used Second Hand Smoke Exposure: No Substance Use Type: Crack/Cocaine Advance Directives Date on File: 04/25/21 service: No Current occupational status: disabled Meds Allergies Allergy/AdvReac Type Severity Reaction Status Date / Time Seasonal Allergies Allergy Intermediate Eye Verified 07/20/23 12:48 Drainage codeine Allergy Mild Rash Verified 07/20/23 12:48 [From Tylenol-Codeine #3] levofloxacin [From Levaquin] Allergy Mild Rash Verified 07/20/23 12:48 metoclopramide [From Reglan] Allergy Mild Rash Verified 07/20/23 12:48 acetaminophen Allergy Unknown Unknown Verified 07/20/23 12:48 [Tylenol-Codeine #3] Penicillins [PENICILLINS] Allergy Unknown Rash Verified 07/20/23 12:48 ibuprofen [From Motrin] AdvReac Unknown Reflux Verified 07/20/23 12:48 Active Medications: Current Medications Acetaminophen (Acetaminophen 325 Mg Tablet) 650 mg PO Q6H PRN PRN Reason: Pain, Mild (Pain Scale 1-3) Enoxaparin Sodium (Enoxaparin Sodium 40 Mg/0.4 Ml Syringe) 40 mg SUBCUT Q24H MICHAEL Piperacillin Sod/Tazobactam (Sod 4.5 gm/ Sodium Chloride) 100 mls @ 200 mls/hr IV Q6H MICHAEL Ondansetron HCl (Ondansetron Hcl 4 Mg/2 Ml Vial) 4 mg IVPUSH Q8H PRN PRN Reason: Nausea and Vomiting Senna (Sennosides 8.6 Mg Tablet) 17.2 mg PO BEDTIME PRN PRN Reason: Constipation Sodium Chloride (0.9 % Sodium Chloride Flush 3 Ml Syringe) 3 ml IVFLUSH QSHIFT [facility] Home Medications Medication Instructions Recorded Confirmed Last Taken Type latanoprost 0.005 % eye drops 1 drp ophthalmic (eye) DAILY 12/30/22 10/15/23 10/14/23 History albuterol sulfate 90 mcg/actuation 2 puff inhalation Q6H PRN wheezing 02/12/23 10/15/23 10/14/23 History aerosol inhaler brimonidine 0.2 %-timolol 0.5 % 1 drp ophthalmic (eye) BID 06/01/23 10/15/23 10/14/23 History eye drops fluticasone propionate 230 2 puff inhalation BID 06/01/23 10/15/23 10/14/23 History mcg-salmeterol 21 mcg/actuation HFA inhaler (Advair HFA) calcium carbonate 600 mg-vitamin 1 tab PO DAILY 10/15/23 10/15/23 10/14/23 History D3 20 mcg (800 unit) tablet risperidone 3 mg tablet 2 mg feeding tube BEDTIME 10/15/23 10/15/23 10/14/23 History Physical Exam Vital Signs and Narrative: Vital Signs: Last Vital Signs Temp 97.5 F 10/15/23 11:19 Pulse 80 10/15/23 11:19 Resp 22 H 10/15/23 11:19 BP 109/81 10/15/23 11:19 Pulse Ox 95 10/15/23 11:19 O2 Del Method Nasal Cannula 10/15/23 11:19 O2 Flow Rate 2 10/15/23 11:19 BMI result Body Mass Index 20.0 Constitutional - Awake and Alert, No apparent distress Eyes - PERRLA, EOMI Cardiovascular - S1S2, RRR, No edema Respiratory - Normal lung expansion, Normal respiratory effort, No respiratory distress on 2 L supplemental O2, diminished with rhonchi LLL Gastrointestinal - NT / ND; +BS; No rebound or guarding Extremities - no calf tenderness bilaterally, no swelling Skin - Warm/Dry Neurological - Alert & oriented x3 Psychological - Appropriate affect Results Labs 10/16/23 06:05 10/16/23 06:26 Labs: Laboratory Results - last 24 hr 10/14/23 10/15/23 23:03 09:03 MCV 92.0 MCH 32.0 MCHC 34.8 RDW 14.6 Plt Count 177 MPV 11.6 Immature Gran % (Auto) 0.2 Neut % (Auto) 33.3 L Lymph % (Auto) 49.0 H Mchenry % (Auto) 12.4 H Eos % (Auto) 3.8 Baso % (Auto) 1.3 Lymph # (Auto) 2.2 Mchenry # (Auto) 0.6 Eos # (Auto) 0.2 Baso # (Auto) 0.1 Abs Immat Gran (auto) 0.01 Absolute Neuts (auto) 1.5 L Absolute Nucleated RBC 0.000 Nucleated RBC % (auto) 0.0 Anion Gap 15 Estim Creat Clear Calc 71.9 Estimated GFR > 60 Random Glucose 85 Lactic Acid 1.2 Calcium 8.9 Total Bilirubin 0.4 AST 23 ALT 29 Alkaline Phosphatase 63 Total Protein 7.2 Albumin 3.8 Imaging Radiologist's Impressions: Impressions Chest X-Ray 10/15/23 05:39 IMPRESSION: Mild left basilar atelectasis without additional consolidation. Chest CT 10/15/23 06:35 IMPRESSION: 1. Bilateral lower lobe airspace opacities are new compared to previous CT of 07/15/2023. These findings are nonspecific and may represent atelectasis, aspiration pneumonitis or pneumonia. 2. Small amount of layering debris in the trachea and mainstem bronchi. Diffuse bronchial thickening. 3. Small hiatal hernia. 4. Bilateral nonobstructing renal calculi. 5. Multiple compression deformities of the thoracic spine are stable when compared to previous CT of 07/15/2023. Fleischner guidelines were followed. Assessment and Plan (1) Aspiration pneumonia: Status: Acute (2) Adult failure to thrive: Status: Acute Plan 57 year old male with history of HIV compliant with biktarvy, htn, hx substance abuse, moderate persistent asthma, hx hepatitis C , dysphagia with g tube in place admitted for further management of aspiration pneumonia/pneumonitis with acute hypoxemic respiratory failure #Aspiration pneumonia with hypoxemic respiratory failure -CT chest shows bilateral airspace opacities possibly representing atelectasis, aspiration pneumonitis, or pneumonia with small amount of debris in trachea and mainstem bronchi -IV zosyn (initiated 10/15), vanco until MRSA swab results -40mg IV methylprednisolone BID -sputum culture, strep pneumo ag, legionella ag, mrsa nasal swab -duonebs q4h, albuterol prn -ID consult given infection in HIV patient -continue supplemental O2 to maintain oximetry >92% -no sepsis #HIV -last CD4 627 09/2023 -continue bitarvy -ID consult #Progressive dysphagia -resume tube feeds -nutrition consult #adult ftt -pt eval #Moderate persistent asthma- no acute exacerbation -Continue maintenance inhalers, albuterol prn #HTN -bp soft, hold home antihypertensives DVT prophylaxis- lovenox Full code Pt requires inpt stay at least 2 nights for management of acute hypoxia requiring supplemental O2 with aspiration pneumonia requiring supplemental O2 and IV abx in immunocompromised patient with expert consultation Quality Stroke Does the patient have a stroke diagnosis?: No VTE Prior VTE?: No VTE Risk Level:: Medical - moderate - high VTE Device Contraindication: Treatment Not Indicated VTE Drug Contraindication: N/A - Med Ordered
--- NOTE | 2023-10-15 12:18 | MHC.CLN ---
NUTRITION CONSULT FOR G TUBE FEEDING. PATIENT KNOWN FROM PRIOR ADMIT. PEG PLACED 07/30/23. RECOMMEND JEVITY 1.0 AT MAX GOAL RATE 60 ML/HOUR WITH WATER FLUSH 120 ML Q 8 HOURS. PROVIDES 1526 KCALS (27 KCALS/KG); 63.7 G PROTEIN (1.13 G/KG); 1562 ML FREE WATER FROM FORMULA AND FLUSH (27.8 ML/KG). PER EMR, PATIENT WITHOUT JEVITY TUBE FEEDING X 3 WEEKS AND HAD BEEN TAKING ENSURE. SHOWS FAVORABLE WEIGHT GAIN X 3 MONTHS, +10%. RD WILL COMPLETE CLINICAL NUTRITION ASSESSMENT UPON ADMISSION TO UNIT.
--- NOTE | 2023-10-15 12:18 | PHA.MEDREC ---
Pharmacy Consult ? Medication Reconciliation Pharmacy has completed the medication reconciliation. Confirmed medications with patient and through claim history.
[2023-10-15] MEDS: Bictegrav/Emtricit/Tenofov Ala TABLET 1 TAB PO (12:57)
[2023-10-15] MEDS: Latanoprost 0.005 % Ophth Sol 2.5 ML DROPS 1 DROP EYE-BOTH (12:57)
--- NOTE | 2023-10-15 13:01 | PC.NURSE ---
g-tube assessed and noted to be patent, confirmed via auscultation, flushed well with no return noted. pt medicated per NOV, g-tube feeding resumed.
[2023-10-15] MEDS: Enoxaparin Sodium 40 MG/0.4 ML SYRINGE SUBCUT (13:04)
[2023-10-15 13:15] LABS: MANUAL DIFF FLAG NO
[2023-10-15 13:18] LABS: Basophils Percent Auto 0.5 % (0-2); Eosinophils Absolute Auto 0.1 X10*3/uL (0.0-0.4); Eosinophils Percent Auto 1.7 % (0-4); Hematocrit 41.3 % (42.0-52.0); Imm Gran Abs Auto 0.02 X10*3/uL (0.00-0.03); Imm Gran Pct Auto 0.3 % (0.0-0.4); Lymphocytes Absolute Auto 1.8 X10*3/uL (1.2-4.9); Lymphocytes Percent Auto 30.9 % (20-40); Mean Corpuscular HGB Conc 33.9 g/dl (31.0-36.0); Mean Corpuscular Hemoglobin 31.7 pg (27.0-33.0); Mean Corpuscular Volume 93.4 fL (80.0-98.0); Mean Platelet Volume 11.2 fL (9.4-12.4); Monocytes Absolute Auto 0.7 X10*3/uL (0.1-1.2); Neutrophils Absolute Auto 3.3 x10*3/uL (2.0-8.3); Neutrophils Percent Auto 55.6 % (45-73); Platelet Count 195 X10*3/uL (160-400); Red Blood Count 4.42 X10*6/uL (4.60-5.80); Red Cell Distribution Width 14.7 % (11.0-16.0); White Blood Count 5.9 X10*3/uL (4.8-10.8)
[2023-10-15] MEDS: methylPREDNISolone Sod Succ 40 MG/ML VIAL IVPUSH ×2 (13:30→23:08)
[2023-10-15 13:44] LABS: Anion Gap 11 (12-20); Blood Urea Nitrogen 15 mg/dL (9-16); Calcium 8.8 mg/dL (8.4-10.2); Carbon Dioxide 28 mmol/L (22-29); Chloride 107 mmol/L (96-108); Creatinine Clr Calc Pharmacy 69.5; Estimated Glomerular Filt Rate > 60; Glucose Random 102 mg/dL (60-115); Potassium 4.1 mmol/L (3.3-5.1); Sodium 142 mmol/L (135-145)
[2023-10-15] MEDS: vancomycin HCL 1,500 MG in 0.9 % Sodium Chloride 500 ML 333.33 MG IV (14:02)
[2023-10-15] MEDS: Piperacillin Sodium/Tazobactam 4.5 GM in 0.9 % Sodium Chloride 100 ML IV ×2 (15:58→21:40)
[2023-10-15] MEDS: Gabapentin 600 MG TABLET G-TUBE ×2 (15:58→21:41)
[2023-10-15] MEDS: 0.9 % Sodium Chloride Flush 3 ML SYRINGE IVFLUSH ×2 (16:10→21:40)
--- NOTE | 2023-10-15 16:12 | PC.NURSE ---
Pt is resting quietly on stretcher, Phlebitis to right forearm, IV removed. New IV placed to right foot. Urinal emptied for 300ml of yellow urine. G tube stoma cleansed for large amount of crust to site. Pt reports continual chest pain. Breathing even and unlabored. No rx noted with Zoysn admin, Bela JC aware. g tube with +auscultation placement, no residuals noted.
--- NOTE | 2023-10-15 16:13 | P.CNID_ITS ---
History of Present Illness Data of Consult Service Date: 10/15/23 Requesting physician: Bela Mckeon Primary Care Provider: Charu WHITFIELD Reason for consult: hypoxia He presents with right chest wall pain ,03/19. He has no productive sputum different than usual. He has bronchiectasis pattern on CT scan and has basilar findings which are new. Review of Systems 2 Review of Systems: Yes all other systems are reviewed and are negative Respiratory: Respiratory: Reports chest congestion and Reports cough PMFSH Past Medical History Medical History Multiple rib fractures History of empyema of pleura (01/05/23) Hypertension Closed fracture of leg Hepatitis C Kidney stones Pleuritic chest pain Pneumonia Substance abuse Hemorrhoids Depression HIV (human immunodeficiency virus infection) Asthma Surgical History Surgical History H/O hemorrhoidectomy Social History Social History Household Members: Family Household Members Other:: sister Housing: Apartment Do you presently have visiting nurse or other home services: Yes (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; 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/week [employer]) Alcohol intake: never Patient Tobacco Use Status: Former Tobacco user Tobacco use type: Cigarette e-Cigarette/Vaping Use: Never Used Second Hand Smoke Exposure: No Substance Use Type: Crack/Cocaine Advance Directives: Yes Advance Directives on File: Yes Advance Directives Date on File: 04/25/21 service: No Current occupational status: disabled Meds Allergies Allergy/AdvReac Type Severity Reaction Status Date / Time Seasonal Allergies Allergy Intermediate Eye Verified 07/20/23 12:48 Drainage codeine Allergy Mild Rash Verified 07/20/23 12:48 [From Tylenol-Codeine #3] levofloxacin [From Levaquin] Allergy Mild Rash Verified 07/20/23 12:48 metoclopramide [From Reglan] Allergy Mild Rash Verified 07/20/23 12:48 acetaminophen Allergy Unknown Unknown Verified 07/20/23 12:48 [Tylenol-Codeine #3] Penicillins [PENICILLINS] Allergy Unknown Rash Verified 07/20/23 12:48 ibuprofen [From Motrin] AdvReac Unknown Reflux Verified 07/20/23 12:48 Active Medications: Current Medications Acetaminophen (Acetaminophen 325 Mg Tablet) 650 mg PO Q6H PRN PRN Reason: Pain, Mild (Pain Scale 1-3) Albuterol Sulfate (Albuterol Sulfate 90 Mcg 8 Gm Inhaler) 2 puff INHALE Q6H PRN PRN Reason: wheezing Albuterol/Ipratropium (Albuterol/Iprat 2.5/0.5mg 3 Ml Ampul.Neb) 3 ml INHALE RQ4H WHILE AWAKE [facility] Last Admin: 10/15/23 15:26 Dose: 3 ml Amlodipine Besylate (Amlodipine Besylate 5 Mg Tablet) 5 mg G-TUBE DAILY [facility]; Protocol Bictegravir/Emtricitabine/Tenofovir (Bictegrav/Emtricit/Tenofov Ala Tablet) 1 tab PO DAILY [facility] Last Admin: 10/15/23 12:57 Dose: 1 tab Brimonidine Tartrate (Brimonidine Tartrate 0.2% Oph 5 Ml Bottle) 1 drop EYE- BOTH BID [facility] Calcium Carbonate/Cholecalciferol (Calcium + Vitamin D 250 Mg Tablet) 500 mg PO DAILY [facility] Clonazepam (Clonazepam 1 Mg Tablet) 1 mg G-TUBE DAILY [facility] Diphenhydramine HCl (Diphenhydramine Hcl 25 Mg Capsule) 50 mg G-TUBE BEDTIME [facility] Enoxaparin Sodium (Enoxaparin Sodium 40 Mg/0.4 Ml Syringe) 40 mg SUBCUT Q24H [facility] Last Admin: 10/15/23 13:04 Dose: 40 mg Ferrous Sulfate (Ferrous Sulfate 324 Mg Tablet.Dr) 324 mg PO DAILY [facility] Fluticasone/Vilanterol (Fluticasone/Vilanterol 200/25 Blst.W.Dev) 1 puff INHALE RDAILY [facility] Gabapentin (Gabapentin 600 Mg Tablet) 600 mg G-TUBE TID [facility] Last Admin: 10/15/23 15:58 Dose: 600 mg Piperacillin Sod/Tazobactam (Sod 4.5 gm/ Sodium Chloride) 100 mls @ 200 mls/hr IV Q6H [facility] Last Admin: 10/15/23 15:58 Dose: 200 mls/hr Vancomycin HCl 750 mg/ Sodium (Chloride) 265 mls @ 265 mls/hr IV Q12H [facility] Latanoprost (Latanoprost 0.005 % Ophth Carol 2.5 Ml Drops) 1 drop EYE-BOTH DAILY [facility] Last Admin: 02/05/24 12:57 Dose: 1 drop Methylprednisolone Sodium Succinate (Methylprednisolone Sod Succ 40 Mg/Ml Vial) 40 mg IVPUSH Q12H [facility] Last Admin: 10/15/23 13:30 Dose: 40 mg Mirtazapine (Mirtazapine 30 Mg Tablet) 60 mg G-TUBE BEDTIME [facility] Ondansetron HCl (Ondansetron Hcl 4 Mg/2 Ml Vial) 4 mg IVPUSH Q8H PRN PRN Reason: Nausea and Vomiting Pharmacy Consult (Consult Rx Vancomycin Dosing) 1 each MISCELLANE DAILY PRN PRN Reason: Consult order Risperidone (Risperidone 2 Mg Tablet) 2 mg G-TUBE BEDTIME [facility] Senna (Sennosides 8.6 Mg Tablet) 17.2 mg PO BEDTIME PRN PRN Reason: Constipation Sodium Chloride (0.9 % Sodium Chloride Flush 3 Ml Syringe) 3 ml IVFLUSH QSHIFT [facility] Last Admin: 10/15/23 16:10 Dose: 3 ml Timolol Maleate (Timolol Maleate 0.5 % Oph Carol 5 Ml Drbtl) 1 drop EYE-BOTH BID [facility] Tramadol HCl (Tramadol Hcl 50 Mg Tablet) 50 mg G-TUBE DAILY PRN PRN Reason: Pain, Moderate(Pain Scale 4-6) Home Medications Medication Instructions Recorded Confirmed Last Taken Type latanoprost 0.005 % eye drops 1 drp ophthalmic (eye) DAILY 12/30/22 10/15/23 10/14/23 History albuterol sulfate 90 mcg/actuation 2 puff inhalation Q6H PRN wheezing 02/12/23 10/15/23 10/14/23 History aerosol inhaler brimonidine 0.2 %-timolol 0.5 % 1 drp ophthalmic (eye) BID 06/01/23 10/15/23 10/14/23 History eye drops fluticasone propionate 230 2 puff inhalation BID 06/01/23 10/15/23 10/14/23 History mcg-salmeterol 21 mcg/actuation HFA inhaler (Advair HFA) calcium carbonate 600 mg-vitamin 1 tab PO DAILY 10/15/23 10/15/23 10/14/23 History D3 20 mcg (800 unit) tablet risperidone 3 mg tablet 2 mg feeding tube BEDTIME 10/15/23 10/15/23 10/14/23 History Physical Exam 2 Vital Signs: Vital Signs: Last Vital Signs Temp 97.5 F 10/15/23 11:19 Pulse 67 10/15/23 16:10 Resp 16 10/15/23 16:10 BP 113/69 10/15/23 16:10 Pulse Ox 95 10/15/23 16:10 O2 Del Method Nasal Cannula 10/15/23 11:19 O2 Flow Rate 2 10/15/23 16:10 BMI result Body Mass Index 20.0 Const: General: cooperative HEENT: Head: Yes normal to inspection Face and sinus: Yes normal facial exam Mouth: Normal oral and palatal mucosa present Teeth and gingiva: d entition normal Eyes: General: appearance normal, both eyes and all related structures P upils: Equal, round and reactive pupils present Resp: Other: rhonchi bases Cardio: Rate: regular rate Rhythm: regular rhythm GI: Palpation (GI): Soft to palpation and nontender : General: Yes no CVA tenderness Back/Spine/Pelvis: Back: no CVA tenderness Skin: General skin exam: no rashes or lesions noted Neuro: General: moves all extremities Cranial nerves: Yes Equal, round and reactive pupils present Extrem: General: Yes normal to inspection Psych: Appearance: grossly normal Results Labs 10/15/23 13:10 10/15/23 13:10 Labs: Short CBC 10/14/23 10/15/23 Range/Units 23:03 13:10 WBC 4.5 L 5.9 (4.8-10.8) X10*3/uL Hgb 13.9 L 14.0 (14.0-18.0) g/dl Hct 40.0 L 41.3 L (42.0-52.0) % Plt Count 177 195 (160-400) X10*3/uL BMP 10/14/23 10/15/23 23:03 13:10 Sodium 142 142 Potassium 3.9 4.1 Chloride 108 107 Carbon Dioxide 23 28 BUN 15 15 Creatinine 0.88 0.91 Calcium 8.9 8.8 Liver Function 10/14/23 Range/Units 23:03 Total Bilirubin 0.4 (0.0-1.0) mg/dL AST 23 (5-37) U/L ALT 29 (0-40) U/L Alkaline Phosphatase 63 (39-117) U/L Albumin 3.8 (3.5-5.0) g/dL Assessment and Plan (1) Aspiration pneumonia: Status: Acute He has primarily bronchial disease with bronchiectasis He has hypoxia so more likely pneumonia,PE ruled out Possible staph or strep,less likely atypical Plan Piperacillin/Tazobactam and Vancomycin. Stop Vancomycin if MRSA nares negative. Consider add Doxycycline if hypoxia doesnt improve within day. Check urine Legionella.
--- NOTE | 2023-10-15 16:40 | PC.NURSE ---
pt reports chest pain, sharp 10/10 in center of chest with coughing, reports same pain as earlier episode. denies SOB. provider notified
[2023-10-15] MEDS: Ketorolac Tromethamine 30 MG/ML VIAL IVPUSH (18:16)
--- NOTE | 2023-10-15 18:21 | PC.NURSE ---
pt medicated per MAR for pain.
--- NOTE | 2023-10-15 19:20 | MHC.EDTECH ---
This tech took over care of patient at 1900,hourly rounds and vitals completed,Patient repositioned to comfort,mrsa nasal swab obtained and sent to lab, Patient is unable to give a urine sample at this time will re-attempt, call jansen in reach
[2023-10-15] MEDS: Mirtazapine 30 MG TABLET 60 MG G-TUBE ×2 (21:40→21:46)
[2023-10-15] MEDS: diphenhydrAMINE HCL 25 MG CAPSULE 50 MG G-TUBE ×2 (21:41→21:47)
[2023-10-15] MEDS: risperiDONE 2 MG TABLET G-TUBE ×2 (21:41→21:47)
[2023-10-16] VITALS (9 sets, daily range): BP systolic 110–123; BP diastolic 64–69; PULSE 58–75; RESP 16–20; TEMP 36.2–36.5; O2SAT 93–97
[2023-10-16] MEDS: vancomycin HCL 750 MG in 0.9 % Sodium Chloride 250 ML 265 MG IV ×2 (02:57→14:04)
--- NOTE | 2023-10-16 03:15 | MHC.PIE ---
late entry 10/15 1999 p; pt arrived from ed with feeding at 20ml/hr. note; ED note shows feeding started 10/15 at 0200 i; 10/15 1999 per order, residual checked (5ml), feeding increased by 10 ml per order running at 30ml/hr i; 10/16 199 residual >5ml, feeding increased to 40 ml e; will cont to monitor
[2023-10-16] MEDS: Piperacillin Sodium/Tazobactam 4.5 GM in 0.9 % Sodium Chloride 100 ML IV ×4 (03:59→19:53)
[2023-10-16 06:28] LABS: MANUAL DIFF FLAG NO
[2023-10-16 06:32] LABS: Basophils Percent Auto 0.1 % (0-2); Hematocrit 40.1 % (42.0-52.0); Hemoglobin 13.5 g/dl (14.0-18.0); Imm Gran Abs Auto 0.03 X10*3/uL (0.00-0.03); Imm Gran Pct Auto 0.3 % (0.0-0.4); Lymphocytes Absolute Auto 0.7 X10*3/uL (1.2-4.9); Mean Corpuscular HGB Conc 33.7 g/dl (31.0-36.0); Mean Corpuscular Volume 92.2 fL (80.0-98.0); Mean Platelet Volume 11.7 fL (9.4-12.4); Monocytes Absolute Auto 0.2 X10*3/uL (0.1-1.2); Monocytes Percent Auto 1.6 % (2-11); Neutrophils Absolute Auto 8.4 x10*3/uL (2.0-8.3); Platelet Count 193 X10*3/uL (160-400); Red Blood Count 4.35 X10*6/uL (4.60-5.80); Red Cell Distribution Width 14.4 % (11.0-16.0); White Blood Count 9.3 X10*3/uL (4.8-10.8)
[2023-10-16 06:45] LABS: Anion Gap 13 (12-20); Blood Urea Nitrogen 19 mg/dL (9-16); Calcium 8.9 mg/dL (8.4-10.2); Carbon Dioxide 22 mmol/L (22-29); Chloride 109 mmol/L (96-108); Creatinine Clr Calc Pharmacy 68.7; Estimated Glomerular Filt Rate > 60; Glucose Random 166 mg/dL (60-115); Potassium 4.4 mmol/L (3.3-5.1); Sodium 140 mmol/L (135-145)
[2023-10-16] MEDS: Albuterol/Iprat 2.5/0.5MG 3 ML AMPUL.NEB INHALE ×4 (08:09→20:29)
[2023-10-16] MEDS: Fluticasone/Vilanterol 200/25 BLST.W.DEV 1 PUFF INHALE (08:22)
[2023-10-16] MEDS: amLODIPine Besylate 5 MG TABLET G-TUBE (08:38)
[2023-10-16] MEDS: Bictegrav/Emtricit/Tenofov Ala TABLET 1 TAB PO (08:38)
[2023-10-16] MEDS: Calcium + Vitamin D 250 MG TABLET 500 MG PO (08:38)
[2023-10-16] MEDS: Gabapentin 600 MG TABLET G-TUBE ×3 (08:38→19:53)
[2023-10-16] MEDS: Ferrous Sulfate 324 MG TABLET.DR PO (08:38)
[2023-10-16] MEDS: clonazePAM 1 MG TABLET G-TUBE (08:38)
[2023-10-16] MEDS: 0.9 % Sodium Chloride Flush 3 ML SYRINGE IVFLUSH ×3 (08:39→19:54)
[2023-10-16 09:07] LABS: MRSA Nasal PCR POSITIVE (Negative); SA Nasal PCR POSITIVE (Negative)
--- NOTE | 2023-10-16 09:53 | HO.PM.IMPN ---
Subjective Subjective Date of Service: 10/16/23 Interval History: f/u on asp PNA d/t chronic dysphagia, feels better, no acute resp distress, oxygenation is better Physical Exam Vital Signs: Vital Signs: Last Vital Signs Temp 97.2 F 10/16/23 07:33 Pulse 75 10/16/23 08:11 Resp 20 10/16/23 08:11 BP 110/64 10/16/23 07:33 Pulse Ox 95 10/16/23 07:33 O2 Del Method Nasal Cannula 10/16/23 07:33 O2 Flow Rate 1 10/16/23 07:33 BMI result Body Mass Index 20.0 Constitutional - Awake and Alert, No apparent distress Cardiovascular - S1S2, RRR, No edema Respiratory - Normal lung expansion, nl effort, william rhonchi Gastrointestinal - NT / ND; +BS; No rebound or guarding Extremities - no calf tenderness bilaterally, no swelling Skin - Warm/Dry Neurological - Alert & oriented x3 Psychological -flat Const: Other: General: AO X 3, no acute distress Resp: william rhonchi CVS: S1,S2,RRR GI: +BS, NT, no distention Skin: No rash Neuro: motor grossly intact Psych: appropriate affect Objective Data Active Medications Acetaminophen (Acetaminophen 325 Mg Tablet) 650 mg PO Q6H PRN PRN Reason: Pain, Mild (Pain Scale 1-3) Albuterol Sulfate (Albuterol Sulfate 90 Mcg 8 Gm Inhaler) 2 puff INHALE Q6H PRN PRN Reason: wheezing Albuterol/Ipratropium (Albuterol/Iprat 2.5/0.5mg 3 Ml Ampul.Neb) 3 ml INHALE RQ4H WHILE AWAKE [facility] Last Admin: 10/16/23 08:09 Dose: 3 ml Documented By: KIRK Amlodipine Besylate (Amlodipine Besylate 5 Mg Tablet) 5 mg G-TUBE DAILY [facility]; Protocol Last Admin: 10/16/23 08:38 Dose: 5 mg Documented By: CASEY Bictegravir/Emtricitabine/Tenofovir (Bictegrav/Emtricit/Tenofov Ala Tablet) 1 tab PO DAILY [facility] Last Admin: 10/16/23 08:38 Dose: 1 tab Documented By: CASEY Brimonidine Tartrate (Brimonidine Tartrate 0.2% Oph 5 Ml Bottle) 1 drop EYE-BOTH BID [facility] Last Admin: 10/16/23 09:31 Dose: Not Given Documented By: CASEY Non-Admin Reason: Med Not Available Calcium Carbonate/Cholecalciferol (Calcium + Vitamin D 250 Mg Tablet) 500 mg PO DAILY [facility] Last Admin: 10/16/23 08:38 Dose: 500 mg Documented By: CASEY Clonazepam (Clonazepam 1 Mg Tablet) 1 mg G-TUBE DAILY [facility] Last Admin: 10/16/23 08:38 Dose: 1 mg Documented By: CASEY Diphenhydramine HCl (Diphenhydramine Hcl 25 Mg Capsule) 50 mg G-TUBE BEDTIME [facility] Last Admin: 10/15/23 21:47 Dose: 50 mg Documented By: ANALILIA Enoxaparin Sodium (Enoxaparin Sodium 40 Mg/0.4 Ml Syringe) 40 mg SUBCUT Q24H [facility] Last Admin: 10/15/23 13:04 Dose: 40 mg Documented By: MARIA C Ferrous Sulfate (Ferrous Sulfate 324 Mg Tablet.Dr) 324 mg PO DAILY [facility] Last Admin: 10/16/23 08:38 Dose: 324 mg Documented By: CASEY Fluticasone/Vilanterol (Fluticasone/Vilanterol 200/25 Blst.W.Dev) 1 puff INHALE RDAILY [facility] Last Admin: 10/16/23 08:22 Dose: 1 puff Documented By: KIRK Gabapentin (Gabapentin 600 Mg Tablet) 600 mg G-TUBE TID [facility] Last Admin: 10/16/23 08:38 Dose: 600 mg Documented By: CASEY Piperacillin Sod/Tazobactam (Sod 4.5 gm/ Sodium Chloride) 100 mls @ 200 mls/hr IV Q6H [facility] Last Infusion: 10/16/23 09:31 Dose: Infused Documented By: CASEY Vancomycin HCl 750 mg/ Sodium (Chloride) 265 mls @ 265 mls/hr IV Q12H [facility] Last Infusion: 10/16/23 03:59 Dose: Infused Documented By: ANALILIA Latanoprost (Latanoprost 0.005 % Ophth Carol 2.5 Ml Drops) 1 drop EYE-BOTH DAILY [facility] Last Admin: 10/16/23 09:30 Dose: Not Given Documented By: CASEY Non-Admin Reason: Med Not Available Methylprednisolone Sodium Succinate (Methylprednisolone Sod Succ 40 Mg/Ml Vial) 40 mg IVPUSH Q12H [facility] Last Admin: 10/15/23 23:08 Dose: 40 mg Documented By: ANALILIA Mirtazapine (Mirtazapine 30 Mg Tablet) 60 mg G-TUBE BEDTIME [facility] Last Admin: 10/15/23 21:46 Dose: 60 mg Documented By: ANALILIA Ondansetron HCl (Ondansetron Hcl 4 Mg/2 Ml Vial) 4 mg IVPUSH Q8H PRN PRN Reason: Nausea and Vomiting Pharmacy Consult (Consult Rx Vancomycin Dosing) 1 each MISCELLANE DAILY PRN PRN Reason: Consult order Risperidone (Risperidone 2 Mg Tablet) 2 mg G-TUBE BEDTIME [facility] Last Admin: 10/15/23 21:47 Dose: 2 mg Documented By: ANALILIA Senna (Sennosides 8.6 Mg Tablet) 17.2 mg PO BEDTIME PRN PRN Reason: Constipation Sodium Chloride (0.9 % Sodium Chloride Flush 3 Ml Syringe) 3 ml IVFLUSH QSHIFT [facility] Last Admin: 10/16/23 08:39 Dose: 3 ml Documented By: CASEY Timolol Maleate (Timolol Maleate 0.5 % Oph Carol 5 Ml Drbtl) 1 drop EYE-BOTH BID [facility] Last Admin: 10/16/23 09:30 Dose: Not Given Documented By: CASEY Non-Admin Reason: Med Not Available Tramadol HCl (Tramadol Hcl 50 Mg Tablet) 50 mg G-TUBE DAILY PRN PRN Reason: Pain, Moderate(Pain Scale 4-6) Labs 10/16/23 06:05 10/16/23 06:26 Labs: Laboratory Results - last 24 hr 10/15/23 10/15/23 10/16/23 13:10 19:23 06:05 MCV 93.4 92.2 MCH 31.7 31.0 MCHC 33.9 33.7 RDW 14.7 14.4 Plt Count 195 193 MPV 11.2 11.7 Immature Gran % (Auto) 0.3 0.3 Neut % (Auto) 55.6 90.0 H Lymph % (Auto) 30.9 8.0 L [place] % (Auto) 11.0 1.6 L Eos % (Auto) 1.7 0.0 Baso % (Auto) 0.5 0.1 Lymph # (Auto) 1.8 0.7 L [place] # (Auto) 0.7 0.2 Eos # (Auto) 0.1 0.0 Baso # (Auto) 0.0 0.0 Abs Immat Gran (auto) 0.02 0.03 Absolute Neuts (auto) 3.3 8.4 H Absolute Nucleated RBC 0.000 0.000 Nucleated RBC % (auto) 0.0 0.0 Anion Gap 11 L Estim Creat Clear Calc 69.5 Estimated GFR > 60 Random Glucose 102 Calcium 8.8 Nasal Screen MRSA (PCR) POSITIVE A Nasal S. aureus Screen POSITIVE A Nasal MRSA/S.aureus Interp SEE NOTE 10/16/23 06:26 MCV MCH MCHC RDW Plt Count MPV Immature Gran % (Auto) Neut % (Auto) Lymph % (Auto) [place] % (Auto) Eos % (Auto) Baso % (Auto) Lymph # (Auto) [place] # (Auto) Eos # (Auto) Baso # (Auto) Abs Immat Gran (auto) Absolute Neuts (auto) Absolute Nucleated RBC Nucleated RBC % (auto) Anion Gap 13 Estim Creat Clear Calc 68.7 Estimated GFR > 60 Random Glucose 166 H Calcium 8.9 Nasal Screen MRSA (PCR) Nasal S. aureus Screen Nasal MRSA/S.aureus Interp Assessment and Plan (1) Aspiration pneumonia: Status: Acute Plan 57 year old male with history of HIV compliant with biktarvy, htn, hx substance abuse, moderate persistent asthma, hx hepatitis C , dysphagia with g tube in place admitted for further management of aspiration pneumonia/pneumonitis with acute hypoxemic respiratory failure #Aspiration PNA with hypoxemic respiratory failure d/t chronic aspiration and is supposed to be on tube feed but not compliant -Zosyn + Vanco started 10/15 -ID consult -wean off O2 -follow culture #HIV -last CD4 627 09/2023 -continue bitarvy -ID consult #Progressive dysphagia, to avoid oral feed -resume tube feeds -nutrition consult #adult ftt -pt eval prior to dc #Moderate persistent asthma- no acute exacerbation -Continue maintenance inhalers, albuterol prn #HTN -bp soft, hold home antihypertensives DVT prophylaxis- lovenox Full code need for inpt: aspiration PNA with hypoxia needing IV Abx and O2 titration Quality Stroke Does the patient have a stroke diagnosis?: No VTE Prior VTE?: No VTE Risk Level:: Medical - moderate - high VTE Device Contraindication: Treatment Not Indicated VTE Drug Contraindication: N/A - Med Ordered
[2023-10-16] MEDS: Enoxaparin Sodium 40 MG/0.4 ML SYRINGE SUBCUT (11:24)
[2023-10-16] MEDS: methylPREDNISolone Sod Succ 40 MG/ML VIAL IVPUSH ×2 (11:25→23:13)
[2023-10-16] MEDS: Acetaminophen 325 MG TABLET 650 MG PO ×2 (11:29→23:20)
--- NOTE | 2023-10-16 11:38 | MHC.CM.PN ---
IMM DELIVERED PT LIVES WITH SISTER/HCP ALISE. PT INDEPENDENT AT BASELINE WITH MOBILITY. PT HAS G/T BUT HAS NOT HAD FEEDING X 3 WEEKS PER SISTER DUE TO PROVIDER NOT SIGNING/SENDING PRE AUTH FORM TO INSURANCE . THIS CM CALLED [facility] AND LEFT MESSAGE WITH DME COORDINATOR YANDY TO INQUIRE REGARDING THIS SITUATION. CM AWAITING RETURN CALL. PT HAS DAILY NURSE FOR MED MGMT, CALL OUT TO SISTER TO CONFIRM THE AGENCY. PT ALSO HAS DIRECTOR EXTERNAL COMMUNICATIONS HRS. + HCP ON FILE. PCP DEVIN YE AT [facility]. DP: PT DECLINES REHAB, WOULD LIKE TO RETURN HOME WITH SISTER ON RECOVERY. SISTER WILL TRANSPORT. CM WILL CONTINUE TO FOLLOW FOR PLAN/DC NEEDS.
--- NOTE | 2023-10-16 11:45 | MHC.CLN ---
PT IS MODERATELY MALNOURISHED IMPROVED FROM LAST NUTRITION ASSESSMENT (SEVERE MALNUTRITION) PT WITH MILDLY DEPLETED SUBCUTANEOUS FAT AND MUSCLE MASS TRIGGERING FOR 10% SIGNIFICANT WT LOSS X 1 YEAR, HOWEVER PT HAS GAINED 10% X 3 MONTHS REVIEWED PREVIOUS WT HX: PT TRIGGERS FOR 10% WT GAIN X 3 MONTHS PT TRIGGERS FOR 10% SIGNIFICANT WT LOSS X1 YEAR PT DID RECEIVED PEG TUBE FOR NUTRITION SUPPORT, ALTHOUGH REPORTS RECENTLY WAS DENIED TF BY INSURANCE AND HAS BEEN CONSUMING PUREED DIET AT HOME WITH ENSURE SUPPLEMENTS. PT CURRENTLY RECEIVING JEVITY AT 60ML/HR WITH 120ML Q 8HRS PROVIDES 1526KCALS, 64G PROTEIN, 1202ML FREE WATER FROM FORMULA NSG REPORTED TOLERATING TF WELL WITH LOW RESIDUALS RECOMMEND JEVITY 1.0 AT MAX GOAL RATE 65ML/HR WITH 120ML FREE WATER Q 8 HRS TO PROVIDE 1654KCALS (30KCALS/KG), 69G PROTEIN (1.2G/KG), 1663ML TOTAL WATER FROM FORMULA AND FLUSHES (30ML/KG) MONITOR TOLERANCE, RESIDUALS AND LYTES
[2023-10-16] MEDS: traMADoL HCL 50 MG TABLET G-TUBE (14:43)
[2023-10-16] MEDS: oxyCODONE HCl Immed Release 5 MG TABLET PO (18:03)
[2023-10-16] MEDS: diphenhydrAMINE HCL 25 MG CAPSULE 50 MG G-TUBE (19:53)
[2023-10-16] MEDS: Mirtazapine 30 MG TABLET 60 MG G-TUBE (19:53)
[2023-10-16] MEDS: risperiDONE 2 MG TABLET G-TUBE (19:53)
[2023-10-17] VITALS (8 sets, daily range): BP systolic 119–144; BP diastolic 60–75; PULSE 54–65; RESP 16; TEMP 36.2–36.8; O2SAT 93–99
[2023-10-17] MEDS: Piperacillin Sodium/Tazobactam 4.5 GM in 0.9 % Sodium Chloride 100 ML IV ×4 (02:13→20:51)
[2023-10-17] MEDS: vancomycin HCL 750 MG in 0.9 % Sodium Chloride 250 ML 265 MG IV (02:41)
[2023-10-17 06:35] LABS: Creatinine Clr Calc Pharmacy 82.1; Estimated Glomerular Filt Rate > 60
[2023-10-17] MEDS: Albuterol/Iprat 2.5/0.5MG 3 ML AMPUL.NEB INHALE ×4 (07:46→20:08)
[2023-10-17] MEDS: Fluticasone/Vilanterol 200/25 BLST.W.DEV 1 PUFF INHALE (07:46)
[2023-10-17] MEDS: amLODIPine Besylate 5 MG TABLET G-TUBE (08:08)
[2023-10-17] MEDS: Calcium + Vitamin D 250 MG TABLET 500 MG PO (08:08)
[2023-10-17] MEDS: Ferrous Sulfate 324 MG TABLET.DR PO (08:09)
[2023-10-17] MEDS: Bictegrav/Emtricit/Tenofov Ala TABLET 1 TAB PO (08:09)
[2023-10-17] MEDS: Gabapentin 600 MG TABLET G-TUBE ×3 (08:09→21:06)
[2023-10-17] MEDS: 0.9 % Sodium Chloride Flush 3 ML SYRINGE IVFLUSH ×3 (08:09→20:53)
[2023-10-17] MEDS: clonazePAM 1 MG TABLET G-TUBE (08:09)
--- NOTE | 2023-10-17 10:43 | MHC.CM.PN ---
Addendum entered by Lauren Vasquez RN 10/17/23 15:09: Spoke with RN at [facility]. Rx for tube feeds were being sent to [facility] who is not in network. Per RN, patient is not established with any other supplier. This RN sent referral to [facility]. [facility] RN aware. Addendum entered by Lauren Vasquez RN 10/17/23 14:20: Left message for nurse at PCP office to return call to this CM. Addendum entered by Lauren Vasquez RN 10/17/23 12:52: Rec'd message that [facility] that patient is not active with them and not in network. Sister Ute does not know name of agency. Attempted to discuss w/ PCP office, left second message for [facility]. Called [facility] and they do not have information about supplier. Attempted to get information from [facility] - no answer via telephone. Sent message in [facility] and awaiting response. Original Note: EMR reviewed. CM attempted to reach [facility] to discuss prior auth for tube feedings. Second message left for Elham - DME coordinator to call CM. Per corporate secretary, prior auth forms were signed/faxed to [facility] on 10/11. Referral sent to [facility] to clarify. Awaiting response. CM will continue to follow.
[2023-10-17] MEDS: Butalb/Acetamin/Caff 50/325/40 TABLET 1 TAB PO (11:37)
[2023-10-17] MEDS: Enoxaparin Sodium 40 MG/0.4 ML SYRINGE SUBCUT (11:38)
--- NOTE | 2023-10-17 12:05 | MHC.CLN ---
F/U CONTINUES NPO WITH TUBE FEEDING FOR NUTRITION/HYDRATION. TOLERATING CURRENT TUBE FEEDING AT MAX GOAL RATE JEVITY 1.0 AT 65 ML/HOUR JEVITY 1.0 AT MAX GOAL RATE 65 ML/HOUR AND 120 ML FREE WATER FLUSH Q 8 HOURS PROVIDES 1654KCALS (30KCALS/KG), 69G PROTEIN (1.2G/KG), 1663ML TOTAL WATER FROM FORMULA AND FLUSHES (30ML/KG) MONITOR TOLERANCE, RESIDUALS AND LYTES
[2023-10-17] MEDS: methylPREDNISolone Sod Succ 40 MG/ML VIAL IVPUSH ×2 (12:25→22:57)
[2023-10-17 12:28] LABS: Vancomycin Random 11.1 mcg/mL (15-20)
--- NOTE | 2023-10-17 12:51 | HE.PHANOTE ---
RE: vanco Trough on 10/17 came back at11.1 mg/L; changed dose to 500mg Q8H with predicted AUC 419mg/L, trough of 13.5. Next level to be drawn 10/18 @1200
[2023-10-17] MEDS: vancomycin HCL 500 MG in 0.9 % Sodium Chloride 100 ML 110 MG IV ×2 (14:12→21:45)
--- NOTE | 2023-10-17 15:15 | HO.PM.IMPN ---
Subjective Subjective Date of Service: 10/17/23 Interval History: No acute issues overnight. Tolerating tube feeds Review of Systems Denies chest pain Denies shortness of breath Denies nausea vomiting diarrhea Denies fever chills Physical Exam Vital Signs: Vital Signs: Last Vital Signs Temp 97.1 F 10/17/23 15:03 Pulse 56 10/17/23 15:03 Resp 16 10/17/23 15:03 BP 142/75 H 10/17/23 15:03 Pulse Ox 96 10/17/23 15:03 O2 Del Method Nasal Cannula 10/17/23 15:03 O2 Flow Rate 1 10/17/23 15:03 BMI result Body Mass Index 20.0 Const: Other: Ill-appearing but no acute distress Resp: Other: Clear to auscultation bilaterally no rales rhonchi or wheezes Cardio: Other: No S4; positive S1-S2; no S3 murmurs rubs or gallops GI: Other: Soft nontender nondistended normoactive bowel sounds. Extrem: Other: No edema bilaterally Objective Data Active Medications Acetaminophen (Acetaminophen 325 Mg Tablet) 650 mg PO Q6H PRN PRN Reason: Pain, Mild (Pain Scale 1-3) Last Admin: 10/16/23 23:20 Dose: 650 mg Documented By: GARRISON Acetaminophen/Butalbital/Caffeine (Butalb/Acetamin/Caff 50/325/40 Tablet) 1 tab PO RQ6H PRN PRN Reason: Migraine Headache Last Admin: 10/17/23 11:37 Dose: 1 tab Documented By: CASEY Albuterol Sulfate (Albuterol Sulfate 90 Mcg 8 Gm Inhaler) 2 puff INHALE Q6H PRN PRN Reason: wheezing Albuterol/Ipratropium (Albuterol/Iprat 2.5/0.5mg 3 Ml Ampul.Neb) 3 ml INHALE RQ4H WHILE AWAKE [facility] Last Admin: 10/17/23 11:32 Dose: 3 ml Documented By: NEFTALY Amlodipine Besylate (Amlodipine Besylate 5 Mg Tablet) 5 mg G-TUBE DAILY [facility]; Protocol Last Admin: 10/17/23 08:08 Dose: 5 mg Documented By: CASEY Bictegravir/Emtricitabine/Tenofovir (Bictegrav/Emtricit/Tenofov Ala Tablet) 1 tab PO DAILY [facility] Last Admin: 10/17/23 08:09 Dose: 1 tab Documented By: CASEY Brimonidine Tartrate (Brimonidine Tartrate 0.2% Oph 5 Ml Bottle) 1 drop EYE-BOTH BID [facility] Last Admin: 10/17/23 09:31 Dose: Not Given Documented By: CASEY Non-Admin Reason: Previously Administered Calcium Carbonate/Cholecalciferol (Calcium + Vitamin D 250 Mg Tablet) 500 mg PO DAILY [facility] Last Admin: 10/17/23 08:08 Dose: 500 mg Documented By: CASEY Clonazepam (Clonazepam 1 Mg Tablet) 1 mg G-TUBE DAILY [facility] Last Admin: 10/17/23 08:09 Dose: 1 mg Documented By: CASEY Diphenhydramine HCl (Diphenhydramine Hcl 25 Mg Capsule) 50 mg G-TUBE BEDTIME [facility] Last Admin: 10/16/23 19:53 Dose: 50 mg Documented By: GARRISON Enoxaparin Sodium (Enoxaparin Sodium 40 Mg/0.4 Ml Syringe) 40 mg SUBCUT Q24H [facility] Last Admin: 10/17/23 11:38 Dose: 40 mg Documented By: CASEY Ferrous Sulfate (Ferrous Sulfate 324 Mg Tablet.Dr) 324 mg PO DAILY [facility] Last Admin: 10/17/23 08:09 Dose: 324 mg Documented By: CASEY Fluticasone/Vilanterol (Fluticasone/Vilanterol 200/25 Blst.W.Dev) 1 puff INHALE RDAILY [facility] Last Admin: 10/17/23 07:46 Dose: 1 puff Documented By: KIRK Gabapentin (Gabapentin 600 Mg Tablet) 600 mg G-TUBE TID [facility] Last Admin: 10/17/23 14:22 Dose: 600 mg Documented By: CASEY Piperacillin Sod/Tazobactam (Sod 4.5 gm/ Sodium Chloride) 100 mls @ 200 mls/hr IV Q6H [facility] Last Infusion: 10/17/23 09:30 Dose: Infused Documented By: CASEY Vancomycin HCl 500 mg/ Sodium (Chloride) 110 mls @ 110 mls/hr IV Q8H [facility] Last Admin: 10/17/23 14:12 Dose: 110 mls/hr Documented By: CASEY Latanoprost (Latanoprost 0.005 % Ophth Carol 2.5 Ml Drops) 1 drop EYE-BOTH DAILY [facility] Last Admin: 10/17/23 09:31 Dose: Not Given Documented By: CASEY Non-Admin Reason: Previously Administered Methylprednisolone Sodium Succinate (Methylprednisolone Sod Succ 40 Mg/Ml Vial) 40 mg IVPUSH Q12H [facility] Last Admin: 10/17/23 12:25 Dose: 40 mg Documented By: CASEY Mirtazapine (Mirtazapine 30 Mg Tablet) 60 mg G-TUBE BEDTIME [facility] Last Admin: 10/16/23 19:53 Dose: 60 mg Documented By: GARRISON Ondansetron HCl (Ondansetron Hcl 4 Mg/2 Ml Vial) 4 mg IVPUSH Q8H PRN PRN Reason: Nausea and Vomiting Oxycodone HCl (Oxycodone Hcl Immed Release 5 Mg Tablet) 5 mg PO Q6H PRN PRN Reason: Pain, Severe (Pain Scale 7-10) Last Admin: 10/16/23 18:03 Dose: 5 mg Documented By: CASEY Pharmacy Consult (Consult Rx Vancomycin Dosing) 1 each MISCELLANE DAILY PRN PRN Reason: Consult order Risperidone (Risperidone 2 Mg Tablet) 2 mg G-TUBE BEDTIME [facility] Last Admin: 10/16/23 19:53 Dose: 2 mg Documented By: GARRISON Senna (Sennosides 8.6 Mg Tablet) 17.2 mg PO BEDTIME PRN PRN Reason: Constipation Sodium Chloride (0.9 % Sodium Chloride Flush 3 Ml Syringe) 3 ml IVFLUSH QSHIFT [facility] Last Admin: 10/17/23 08:09 Dose: 3 ml Documented By: CASEY Timolol Maleate (Timolol Maleate 0.5 % Oph Carol 5 Ml Drbtl) 1 drop EYE-BOTH BID [facility] Last Admin: 10/17/23 09:31 Dose: Not Given Documented By: CASEY Non-Admin Reason: Previously Administered Labs 10/16/23 06:05 10/17/23 06:14 Labs: Laboratory Results - last 24 hr 10/17/23 10/17/23 06:14 11:58 Estim Creat Clear Calc 82.1 Estimated GFR > 60 Random Vancomycin 11.1 L Microbiology Microbiology Results: Microbiology 10/15/23 09:03 Blood Culture - Preliminary Blood - Venous No growth after 48 hours. 10/15/23 08:54 Blood Culture - Preliminary Blood - Venous No growth after 48 hours. Assessment and Plan (1) Aspiration pneumonia: Status: Acute (2) Adult failure to thrive: Status: Acute Plan 57 year old male with history of HIV compliant with biktarvy, htn, hx substance abuse, moderate persistent asthma, hx hepatitis C , dysphagia with g tube in place admitted for further management of aspiration pneumonia/pneumonitis with acute hypoxemic respiratory failure 1.Aspiration PNA with hypoxemic respiratory failure d/t chronic aspiration -Zosyn/Vanco (3) -ID consult appreciated -wean off O2 as tolerated -rehabilitation case coordinator working on arranging for tube feeds at home 2.HIV -last CD4 627 09/2023 -continue bitarvy 3.Progressive dysphagia, to avoid oral feed -resume tube feeds -nutrition consult -rehabilitation case coordinator working on arranging for tube feeds at home 4.Moderate persistent asthma -non issue this admission -Continue maintenance inhalers, albuterol prn 5.HTN -acceptable control off therapies -add back as clinically indicated lovenox Full code Requires ongoing hospitalization for IV antibiotics to treat aspiration pneumonia along with case management to arrange outpatient tube feedings Quality Stroke Does the patient have a stroke diagnosis?: No VTE Prior VTE?: No VTE Risk Level:: Medical - moderate - high VTE Device Contraindication: Treatment Not Indicated VTE Drug Contraindication: N/A - Med Ordered
--- NOTE | 2023-10-17 20:50 | PC.NURSE ---
On 10/16/2023 pt's scheduled 2100 meds: Mirtazapine 60mg, Diphenhydramine 50mg, Risperidone 2mg were administered for future date (10/17/23 @ 2100) Spoke with evening RN, and spoke with PHM to remedy the situation. PHM aware and made amendments to MAR to reflect proper admin date/time.
[2023-10-17] MEDS: Mirtazapine 30 MG TABLET 60 MG G-TUBE (20:52)
[2023-10-17] MEDS: diphenhydrAMINE HCL 25 MG CAPSULE 50 MG G-TUBE (20:52)
[2023-10-17] MEDS: risperiDONE 2 MG TABLET G-TUBE (20:52)
[2023-10-17] MEDS: timoloL maleate 0.5 % Oph Sol 5 ML DRBTL 1 DROP EYE-BOTH (20:53)
[2023-10-17] MEDS: Brimonidine Tartrate 0.2% Oph 5 ML BOTTLE 1 DROP EYE-BOTH (20:53)
[2023-10-18] MEDS: Piperacillin Sodium/Tazobactam 4.5 GM in 0.9 % Sodium Chloride 100 ML IV ×2 (02:46→09:45)
[2023-10-18 03:36] VITALS: BP 124/71; PULSE 60; RESP 18; TEMP 36.8; O2SAT 95
[2023-10-18] MEDS: vancomycin HCL 500 MG in 0.9 % Sodium Chloride 100 ML 110 MG IV (05:25)
[2023-10-18 07:03] VITALS: BP 109/70; PULSE 59; RESP 16; TEMP 36.8; O2SAT 96
[2023-10-18] MEDS: Albuterol/Iprat 2.5/0.5MG 3 ML AMPUL.NEB INHALE ×3 (08:06→15:28)
[2023-10-18 08:08] VITALS: PULSE 70; RESP 16; O2SAT 98
[2023-10-18] MEDS: Fluticasone/Vilanterol 200/25 BLST.W.DEV 1 PUFF INHALE (08:08)
[2023-10-18] MEDS: Gabapentin 600 MG TABLET G-TUBE ×2 (09:26→14:38)
[2023-10-18] MEDS: Brimonidine Tartrate 0.2% Oph 5 ML BOTTLE 1 DROP EYE-BOTH (09:27)
[2023-10-18] MEDS: Calcium + Vitamin D 250 MG TABLET 500 MG PO (09:27)
[2023-10-18] MEDS: Ferrous Sulfate 324 MG TABLET.DR PO (09:27)
[2023-10-18] MEDS: Bictegrav/Emtricit/Tenofov Ala TABLET 1 TAB PO (09:27)
[2023-10-18] MEDS: clonazePAM 1 MG TABLET G-TUBE (09:27)
[2023-10-18] MEDS: timoloL maleate 0.5 % Oph Sol 5 ML DRBTL 1 DROP EYE-BOTH (09:27)
[2023-10-18] MEDS: amLODIPine Besylate 5 MG TABLET G-TUBE (09:27)
[2023-10-18] MEDS: Latanoprost 0.005 % Ophth Sol 2.5 ML DROPS 1 DROP EYE-BOTH (09:27)
[2023-10-18] MEDS: 0.9 % Sodium Chloride Flush 3 ML SYRINGE IVFLUSH (09:28)
[2023-10-18 10:39] LABS: Creatinine Clr Calc Pharmacy 85.4; Creatinine Clr Calc Pharmacy 86.6; Estimated Glomerular Filt Rate > 60
[2023-10-18 10:45] LABS: Vancomycin Trough 13.7 mcg/mL (10.0-20.0)
--- NOTE | 2023-10-18 10:56 | HE.PHANOTE ---
RE: vanco Trough on 10/18 came back at 13.7mg/L, but predicted AUC of 500mg Q8H became subtherapeutic. Changed dose to 1000mg Q12H with predicted AUC of 506 mg/L, trough of 14. Next level to be drawn 10/19 @1200
[2023-10-18 11:30] VITALS: PULSE 68; RESP 16; O2SAT 96
[2023-10-18] MEDS: Enoxaparin Sodium 40 MG/0.4 ML SYRINGE SUBCUT (11:55)
[2023-10-18] MEDS: methylPREDNISolone Sod Succ 40 MG/ML VIAL IVPUSH (11:55)
--- NOTE | 2023-10-18 12:47 | PM.DS ---
DS: Providers Provider Date of Service: 10/18/23 Date of admission: 10/15/23 11:39 Date of discharge: 10/18/23 Primary care physician: Terese Keenan MD Consults: 10/15/23 11:39 Consult to Infectious Diseases Routine Consulting Provider: [facility] Infectious Disease Reason for consultation: aspiration pneumonia, HIV patient DS: Diagnosis Discharge Diagnosis (1) Aspiration pneumonia: Status: Acute (2) Adult failure to thrive: Status: Acute DS: Summary Hospital Course Hospital Course: 57 year old male with history of HIV compliant with biktarvy, htn, hx substance abuse, moderate persistent asthma, hx hepatitis C , dysphagia with g tube in place presented to the ED yesterday for evaluation of dysphagia. The patient had previously been on tube feeds which were discontinued due to insurance authorization. The patient's family had been feeding puree diet but patient has been experiencing dysphagia. He states for the last 4 days has also felt sob with dry cough with pleuritic midsternal chest pain. Denies fevers, chills, sore throat, congestion, abd pain, n/v/d, lightheadedness, or chest pressure. He follows with Dr. Alvarez in infectious disease and is compliant with anti retrovirals. Last CD4 count was 627. On arrival VSS. Has been placed in physician observation with tube feeds resumed and had been scheduled for transfer to [facility] but became hypoxic to 86% on RA and was placed on 2 L supplemental O2. Labs from last night did not reveal any leukocytosis, mild leukopenia of 4.5. Renal function, lytes normal. CT chest this morning showed bilateral lower lobe airspace opacities possibly representing atelectasis, aspiration pneumonitis, or pneumonia as well as small amount of laying debris in trachea and mainstem bronchi with diffuse bronchial thickening. In the ED, given zosyn and doxycycline. Hospital Course Admitted to general medical floor and started on Zosyn and doxycycline. Tube feeds were resumed as ordered. Patient continued to improve; discharge planners were able to secure tube feeds for home. At this point patient is medically acceptable for discharge home to resume tube feeds and complete a course of doxycycline Time Attestation Discharge coordination time: Greater than 30 minutes Quality: Safe Use of Opioids Does Pt have an Active Cancer Diagnosis on the Problem List?: No Quality: Stroke Does the patient have a stroke diagnosis?: No Physical Exam Vital Signs: Vital Signs: Last Vital Signs Temp 98.2 F 10/18/23 07:03 Pulse 68 10/18/23 11:30 Resp 16 10/18/23 11:30 BP 109/70 10/18/23 07:03 Pulse Ox 96 10/18/23 07:03 O2 Del Method Nasal Cannula 10/18/23 07:03 O2 Flow Rate 2 10/18/23 07:03 BMI result Body Mass Index 20.0 Const: Other: Ill-appearing but no acute distress Resp: Other: Clear to auscultation bilaterally no rales rhonchi or wheezes Cardio: Other: No S4; positive S1-S2; no S3 murmurs rubs or gallops GI: Other: Soft nontender nondistended normoactive bowel sounds. Extrem: Other: No edema bilaterally DS: Data Data Completed and Pending Completed studies during hospitalization [Text1]: Procedures Drainage of Left Lung with Drainage Device, Open Approach (12/30/22) Excision of Esophagogastric Junction, Via Natural or Artificial Opening Endoscopic, Diagnostic (07/16/23) Excision of Stomach, Pylorus, Via Natural or Artificial Opening Endoscopic, Diagnostic (07/16/23) Excision of Upper Esophagus, Via Natural or Artificial Opening Endoscopic, Diagnostic (07/16/23) Insertion of Endotracheal Airway into Trachea, Via Natural or Artificial Opening (12/30/22) Insertion of Feeding Device into Stomach, Percutaneous Approach (07/27/23) Insertion of Infusion Device into Superior Vena Cava, Percutaneous Approach (12/30/22) Insertion of Infusion Device into Upper Vein, Percutaneous Approach (07/16/23) Introduction of Nutritional Substance into Upper GI, Via Natural or Artificial Opening (07/27/23) Introduction of Vasopressor into Central Vein, Percutaneous Approach (12/30/22) Release Left Lung, Open Approach (12/30/22) Reposition Left Tibia with Internal Fixation Device, Open Approach (02/12/22) Respiratory Ventilation, 24-96 Consecutive Hours (12/30/22) Ultrasonography of Superior Vena Cava, Guidance (12/30/22) Labs on day of discharge: Laboratory Results - last 24 hr 10/18/23 10/18/23 10/18/23 10:13 10:13 10:13 Creatinine 0.73 0.74 Estim Creat Clear Calc 86.6 85.4 Estimated GFR > 60 Vancomycin Trough 10/18/23 10:13 Creatinine Estim Creat Clear Calc Estimated GFR > 60 Vancomycin Trough 13.7 Preliminary micro results at discharge 10/15/23 09:03 Blood Culture - Preliminary Blood - Venous No growth after 48 hours. 10/15/23 08:54 Blood Culture - Preliminary Blood - Venous No growth after 48 hours. Discharge Plan Discharge Anticipated Discharge Date/Time: 10/18/23 12:44 Patient Disposition: Home Health Service Discharge Diagnosis: Aspiration pneumonia Referrals: [facility] [Other] - 1 Day ([facility] will deliver your formula and supplies) [facility] [Outside] - 1 Day (Resume VNA services) Terese Rivera MD [Primary Care Provider] - 1 Week Discharge Medications: Continued latanoprost 0.005 % drops 1 drp ophthalmic (eye) DAILY albuterol sulfate 90 mcg/actuation HFA aerosol inhaler 2 puff inhalation Q6H PRN (Reason: wheezing) gabapentin 600 mg tablet 600 mg feeding tube TID Qty: 20 0RF clonazepam 1 mg tablet 1 mg feeding tube DAILY Qty: 10 0RF amlodipine 5 mg tablet 5 mg feeding tube DAILY Qty: 30 0RF tramadol 50 mg tablet 50 mg feeding tube DAILY PRN (Reason: Pain) Qty: 14 0RF mirtazapine 30 mg tablet 60 mg feeding tube BEDTIME Qty: 20 0RF diphenhydramine HCl [Banophen] 25 mg tablet 25 mg feeding tube BEDTIME Qty: 20 0RF ferrous gluconate 324 mg (38 mg iron) tablet 324 mg feeding tube DAILY Qty: 14 0RF Rx Instructions: PATIENT STOP TAKING BECAUSE CONSTIPATION . HE IS AWARE HE SHOULD BE TAKING MED . Biktarvy 50-200-25 mg tablet 1 tab PO DAILY Qty: 14 0RF Rx Instructions: Ok to crush and give via feeding tube risperidone 3 mg tablet 2 mg feeding tube BEDTIME calcium carbonate-vitamin D3 600 mg-20 mcg (800 unit) tablet 1 tab PO DAILY fluticasone propion-salmeterol [Advair HFA] 230-21 mcg/actuation HFA aerosol inhaler 2 puff inhalation BID brimonidine-timolol 0.2-0.5 % drops 1 drp ophthalmic (eye) BID Discharge Orders: Discharge Order (Routine); Ordered 10/18/23 Ordered By: Yosi Aparicio Diet: Tube feeds as ordered Activity on Discharge: As tolerated Stand Alone Forms: Patient Portal Discharge page Care Plan Goals: Resume all medicines as taken pre-hospital Health Concerns: Complete course of Augmentin as ordered Plan of Treatment: Follow-up with PCP next available Assessment: See discharge summary
[2023-10-18] MEDS: vancomycin HCL 1,000 MG in 0.9 % Sodium Chloride 250 ML 270 MG IV (13:20)
--- NOTE | 2023-10-18 13:23 | MHC.CM.PN ---
EMR reviewed. Per MD patient is medically cleared for dc home, with resumption of VNA services. Physcial Therapy recommended STR, patient declined. Referral was placed to [facility] who will now provide tube feedings. Nurse from [facility] at [facility] and will provide teaching to patient and sister. [facility] is aware that all orders should be sent to [facility]. Patient to be sent home w/ formula for one day as [facility] will deliver tomorrow. RN and global recruiter aware. [facility] is aware of dc and change to [facility]. Tube feed orders, PT eval and dc summary faxed to Liliya @ [phone] per request. Patient will transport home at 1500 via [employer]. [facility] booking ID [id number]. Sister is aware of dc. IMM was delivered 10/16.
[2023-10-18] MEDS: Acetaminophen 325 MG TABLET 650 MG PO (14:39)
[2023-10-18] MEDS: oxyCODONE HCl Immed Release 5 MG TABLET PO (14:39)
[2023-10-18 15:07] VITALS: BP 121/79; PULSE 72; RESP 18; TEMP 36.3; O2SAT 94
[2023-10-18 15:28] VITALS: PULSE 71; RESP 16; O2SAT 95
== END 2023-10-18 16:06 | disposition home health service (06) | DRG 178 ==
LOC: HO.ED 10-15 10:10 → HO.EDOVER 10-15 11:51 → HO.S3 10-15 19:17
PROVIDERS: Registered Nurse Emergency; Admitting Provider Physician Assistant; Emergency Provider Internal Medicine; PCP Student in an Organized Health Care Education/Training Program; Visit Provider Hospitalist
DX: J69.0 Pneumonitis due to inhalation of food and vomit (principal); J98.11 Atelectasis; J45.40 Moderate persistent asthma, uncomplicated; Z21 Asymptomatic human immunodeficiency virus [HIV] infection status; R13.10 Dysphagia, unspecified; R62.7 Adult failure to thrive; Z68.20 Body mass index [BMI] 20.0-20.9, adult; Z91.119 Patient's noncompliance with dietary regimen due to unspecified reason; Z93.1 Gastrostomy status; Z86.19 Personal history of other infectious and parasitic diseases; Z87.891 Personal history of nicotine dependence; Z79.51 Long term (current) use of inhaled steroids; Z79.899 Other long term (current) drug therapy
CPT/HCPCS: 36415; 71045; 71250; 80048; 80053; 80202; 82565; 83605; 84484; 85025; 87040; 87640; 87641; 93005; 94640; 97162; 99285; J1650; J1885; J2543; J2920; J3370; J3371

== ENCOUNTER → 2023-10-15 02:40 | Outpatient (BNV) | payer OTHER, SELFPAY | PROVIDERS: Admitting Provider Physician Assistant; Emergency Provider Internal Medicine; Visit Provider Internal Medicine | DX: I45.10 Unspecified right bundle-branch block (principal); R94.31 Abnormal electrocardiogram [ECG] [EKG] | CPT/HCPCS: 93010 ==

== ENCOUNTER → 2023-10-15 11:39 | Outpatient (BNV) | payer OTHER, SELFPAY | PROVIDERS: Admitting Provider Physician Assistant; Emergency Provider Internal Medicine; PCP Student in an Organized Health Care Education/Training Program; Visit Provider Physician Assistant | DX: J69.0 Pneumonitis due to inhalation of food and vomit (principal); J96.01 Acute respiratory failure with hypoxia; B20 Human immunodeficiency virus [HIV] disease; R62.7 Adult failure to thrive | CPT/HCPCS: 99223; 99232; 99238 ==

== ENCOUNTER → 2023-10-15 11:39 | Outpatient (BNV) | payer OTHER, SELFPAY | PROVIDERS: Admitting Provider Physician Assistant; Emergency Provider Internal Medicine; Visit Provider Internal Medicine | DX: J69.0 Pneumonitis due to inhalation of food and vomit (principal) | CPT/HCPCS: 99222 ==

== ENCOUNTER 2023-10-26 10:14 | Outpatient (REF) | payer OTHER, SELFPAY ==
--- NOTE | ~2023-10-26 | MR_ITS ---
EXAMINATION: MR BRAIN WITHOUT CONTRAST CLINICAL INFORMATION: Multidetector disturbance, dysphagia, headache, seizures COMPARISON: MRI brain on 03/22/2013 TECHNIQUE: MRI of the brain was obtained using routine sequences without contrast. FINDINGS: Ventricles, sulci and cisterns are dilated. Bilateral frontal and parietal deep white matter shows increased T2 FLAIR signal intensity. No focal lesion with abnormal signal or asymmetry could be seen in the region of bilateral substantia nigra. No focal brainstem or cerebellar lesions with abnormal signal can be seen. Diffusion weighted images show no abnormal regional decrease in diffusion. Normal flow voids of major intracerebral blood vessels are seen in the visualized portion. The pituitary gland is normal. Optic chiasm is not displaced. Cerebellar tonsils position is normal. Mild circumferential mucosal thickening is seen in the left frontal sinus. MR/MR head/brain wo con IMPRESSION: 1. No focal lesion with abnormal signal or asymmetry could be seen in the region of bilateral substantia nigra. 2. No evidence of acute infarction or intracranial hemorrhage. 3. Interval increased conspicuity of Bilateral frontal and parietal deep white matter nonspecific T2 FLAIR signal hyperintensity, nonspecific but may represent chronic small vessel ischemic disease or demyelinating disease or leukoencephalopathy. 4. Interval development of Mild left frontal sinus disease.
== END 2023-10-26 10:15 | disposition home or self-care (01) ==
LOC: HO.MRI 10:14
PROVIDERS: PCP Student in an Organized Health Care Education/Training Program; Visit Provider Student in an Organized Health Care Education/Training Program
DX: R13.19 Other dysphagia (principal)
CPT/HCPCS: 70551

== ENCOUNTER 2023-12-04 08:59 | Outpatient (REF) | payer OTHER, SELFPAY ==
[2023-12-04 13:07] LABS: Alanine Aminotransferase 36 U/L (0-40); Albumin Level 4.1 g/dL (3.5-5.0); Alkaline Phosphatase 62 U/L (39-117); Anion Gap 17 (12-20); Aspartate Amino Transferase 26 U/L (5-37); Bilirubin Total 0.4 mg/dL (0.0-1.0); Blood Urea Nitrogen 15 mg/dL (9-16); Calcium 8.8 mg/dL (8.4-10.2); Carbon Dioxide 22 mmol/L (22-29); Chloride 105 mmol/L (96-108); Estimated Glomerular Filt Rate > 60; Glucose Random 116 mg/dL (60-115); Potassium 4.2 mmol/L (3.3-5.1); Sodium 140 mmol/L (135-145); Total Protein 7.4 g/dL (6.5-8.0)
== END 2023-12-04 09:00 | disposition home or self-care (01) ==
LOC: HO.HHCL 08:59
PROVIDERS: Visit Provider Student in an Organized Health Care Education/Training Program
DX: R13.10 Dysphagia, unspecified (principal)
CPT/HCPCS: 36415; 80053

== ENCOUNTER 2023-12-15 16:45 | Inpatient (IN) | payer OTHER, SELFPAY ==
--- NOTE | ~2023-12-15 | XR_ITS ---
EXAMINATION: XR CHEST CLINICAL INFORMATION: Asthma. Hypoxia. Question aspiration. COMPARISON: Previous chest x-ray and chest CTA December 15, 2023 TECHNIQUE: Frontal view of the chest was obtained. FINDINGS: The cardiac and mediastinal contours are stable. The lungs are well inflated. There is subsegmental atelectasis or small infiltrate at the left lung base. Lungs are otherwise clear. No pleural effusion or pneumothorax. There are surgical clips that project over the left chest/hilar region. When compared with previous CT these correspond to postsurgical changes from prior post left posterior rib resection. XR/XR chest 1V IMPRESSION: Atelectasis or small infiltrate at the left lung base.
--- NOTE | ~2023-12-15 | XR_ITS ---
EXAMINATION: XR CHEST CLINICAL INFORMATION: Chest pain. COMPARISON: Chest radiograph 10/15/2023. TECHNIQUE: Frontal view of the chest was obtained. FINDINGS: Stable appearance of the cardiomediastinal silhouette. Redemonstration of surgical clips overlying the left hilum. Slightly increased interstitial markings. Mild bibasilar streaky opacities. No dense consolidation. No pleural effusion or pneumothorax. Chronic left-sided rib deformities. XR/XR chest 1V IMPRESSION: Slightly increased interstitial markings which are nonspecific and could be associated with asthma, bronchitis, reactive airways disease or atypical viral infections.
--- NOTE | ~2023-12-15 | CT_ITS ---
EXAMINATION: CT ANGIOGRAM OF THE CHEST WITH AND WITHOUT CONTRAST (CT PULMONARY ANGIOGRAM FOR PE) CLINICAL INFORMATION: Reason for Exam sob COMPARISON: CT chest from 07/15/2023 TECHNIQUE: Prior to contrast administration, noncontrast localization images were obtained. Subsequently, multidetector volumetric imaging was performed from the thoracic inlet to below the diaphragms following the administration of 80 mL Omnipaque 350 intravenous contrast. No contrast reaction reported Sagittal, coronal, and MIP oblique sagittal reformatted images were obtained on the CT workstation, uploaded to PACS, and reviewed. This CT examination was performed using dose optimization techniques as appropriate, variously including the following: *Automated exposure control *Adjustment of mA and/or kV according to patient size (this includes techniques or standardized protocols for targeted exams where dose is matched to indication/reason for exam; i.e. extremities or head) *Use of iterative reconstruction technique Total exam dose-length product 309 mGy-cm FINDINGS: QUALITY OF STUDY/CONTRAST BOLUS: Satisfactory. PULMONARY ARTERIES: No pulmonary emboli. Main pulmonary artery is not enlarged. THORACIC AORTA: No aneurysm. LUNG/PLEURA: Respiratory motion artifact limits evaluation. Biapical pleural parenchymal scarring. Peripheral reticular nodular opacities. Bibasilar atelectasis. 3 mm nodule posterior medial aspect right lower lobe (series 3, image 265), new. Debris noted in the distal esophagus in the precarinal region extending into the left mainstem bronchus. Central airways are otherwise patent. No pneumothorax. No large pleural effusion. Bibasilar atelectasis. MEDIASTINUM: Heart is not enlarged. No pericardial effusion. Coronary artery calcifications are noted. A few mildly prominent though nonenlarged mediastinal lymph nodes are noted. Questionable thickening of the visualized thoracic esophagus versus underdistention. Visualized portions of the thyroid are unremarkable. Elevation the right hemidiaphragm. No evidence of septal bowing or right heart strain. CHEST WALL/AXILLA: No axillary or internal mammary lymphadenopathy. OSSEOUS STRUCTURES: Multilevel thoracic vertebral body compression deformities. Redemonstrated left chronic rib fractures. UPPER ABDOMEN: Small hiatal hernia. Subcentimeter hypodense focus posterior aspect right hepatic lobe too small to characterize though statistically representing cysts. No reflux of contrast into the hepatic veins to suggest elevated right heart pressures. CT/CT angio chest PE protocol IMPRESSION: 1. No pulmonary emboli. 2. 3 mm nodule posterior medial aspect right lower lobe. Follow-up as per Fleischner criteria. 3. Debris noted in the distal esophagus in the precarinal region extending into the left mainstem bronchus. 4. Questionable thickening of the visualized thoracic esophagus versus underdistention. 5. Multilevel thoracic vertebral body compression deformities. Redemonstrated left chronic rib fractures. 6. Small hiatal hernia. 7. Subcentimeter hypodense focus posterior aspect right hepatic lobe too small to characterize though statistically representing cysts. Various management parameters for solitary pulmonary nodules are in the literature. According to the Fleischner Society, recommendations for pulmonary nodules are as follows: According to the UPDATED 2017 Fleischner Society recommendations, the advised follow-up imaging for solid nodules < 6 mm is: LOW RISK PATIENT: No routine follow-up.
[2023-12-15 16:57] VITALS: BP 108/70; BP 112/74; PULSE 59; PULSE 61; RESP 18; TEMP 36.7; O2SAT 94; O2SAT 97; BMI 21.1
--- NOTE | 2023-12-15 17:12 | PC.NURSE ---
Pt a+o x3, reports 8/10 L sided chest pain. From home via ambulance, c/o sob x 3d and coughing up brown phlegm, difficulty swallowing at baseline, has g-tube. hx of same.
--- NOTE | 2023-12-15 17:13 | ECG_ITS ---
Test Reason : ALTERED MENTAL Blood Pressure : / mmHG Vent. Rate : 056 BPM Atrial Rate : 056 BPM P-R Int : 184 ms QRS Dur : 108 ms QT Int : 430 ms P-R-T Axes : 073 074 061 degrees QTc Int : 414 ms Sinus bradycardia Incomplete right bundle branch block Borderline ECG When compared with ECG of 15-OCT-2023 08:17, No significant change was found Referred By: Maria Alejandra Wu Electronically Signed By:ZHANG OCHOA MD
--- NOTE | 2023-12-15 17:16 | ED_ITS ---
HPI - General Adult General Chief complaint: General Medical Stated complaint: SOB x3 days, productive brown cough, fever Time Seen by Provider: 12/15/23 17:01 History of Present Illness HPI narrative: Patient is a 58-year-old male with a history of HIV, history of hepatitis-C, history of being on tube feed at maximal rate. Presented today with having coughing congestion upper respiratory symptoms. Generalized malaise. Patient had 3 days' history of coughing upper respiratory symptoms generalized malaise. No vomiting. Related Data Home Medications ?Medication ?Instructions ?Recorded ?Confirmed latanoprost 0.005 % eye drops 1 drp ophthalmic (eye) DAILY 12/30/22 10/15/23 albuterol sulfate 90 mcg/actuation 2 puff inhalation Q6H PRN wheezing 02/12/23 10/15/23 aerosol inhaler brimonidine 0.2 %-timolol 0.5 % 1 drp ophthalmic (eye) BID 06/01/23 12/16/23 eye drops fluticasone propionate 230 2 puff inhalation BID 06/01/23 10/15/23 mcg-salmeterol 21 mcg/actuation HFA inhaler (Advair HFA) calcium carbonate 600 mg-vitamin 1 tab PO DAILY 10/15/23 12/16/23 D3 20 mcg (800 unit) tablet risperidone 3 mg tablet 2 mg feeding tube BEDTIME 10/15/23 10/15/23 mirtazapine 30 mg tablet 60 mg PO BEDTIME 12/16/23 12/16/23 risperidone 3 mg tablet 3 mg PO BEDTIME 12/16/23 12/16/23 tramadol 50 mg tablet 50 mg PO BID PRN Pain (Scale Score 12/16/23 12/16/23 7-10) Previous Rx's ?Medication ?Instructions ?Recorded amlodipine 5 mg tablet 5 mg feeding tube DAILY #30 tabs 08/02/23 bictegravir 50 mg-emtricitabine 1 tab PO DAILY #14 tabs 08/02/23 200 mg-tenofovir alafenam 25 mg tablet (Biktarvy) clonazepam 1 mg tablet 1 mg feeding tube DAILY #10 tabs 08/02/23 diphenhydramine HCl 25 mg tablet 25 mg feeding tube BEDTIME #20 tabs 08/02/23 (Banophen) ferrous gluconate 324 mg (38 mg 324 mg feeding tube DAILY #14 tabs 11/23/23 iron) tablet gabapentin 600 mg tablet 600 mg feeding tube TID #20 tabs 08/02/23 mirtazapine 30 mg tablet 60 mg (2 x 30 mg) feeding tube 08/02/23 BEDTIME #20 tabs tramadol 50 mg tablet 50 mg feeding tube DAILY PRN Pain 08/02/23 #14 tabs Allergies Allergy/AdvReac Type Severity Reaction Status Date / Time Seasonal Allergies Allergy Intermediate Eye Verified 12/15/23 17:05 Drainage codeine Allergy Mild Rash Verified 12/15/23 17:05 [From Tylenol-Codeine #3] levofloxacin [From Levaquin] Allergy Mild Rash Verified 12/15/23 17:05 metoclopramide [From Reglan] Allergy Mild Rash Verified 12/15/23 17:05 acetaminophen Allergy Unknown Unknown Verified 12/15/23 17:05 [Tylenol-Codeine #3] Penicillins [PENICILLINS] Allergy Unknown Rash Verified 12/15/23 17:05 ibuprofen [From Motrin] AdvReac Unknown Reflux Verified 12/15/23 17:05 Review of Systems 2 Review of Systems: Positive generalized malaise Yes all other systems are reviewed and are negative PMFSH Past Medical History Attestation statement: The following information was validated with the patient. Source: unable to obtain Medical History Adult failure to thrive Adult failure to thrive Multiple rib fractures History of empyema of pleura (01/05/23) Hypertension Closed fracture of leg Hepatitis C Kidney stones Pleuritic chest pain Pneumonia Substance abuse Hemorrhoids Depression HIV (human immunodeficiency virus infection) Asthma Surgical History H/O hemorrhoidectomy Social History Social History Household Members: Family Household Members Other:: sister Housing: Apartment Do you presently have visiting nurse or other home services: Yes Alcohol intake: never Patient Tobacco Use Status: Former Tobacco user Tobacco use type: Cigarette Smoked in Last 30 Days: No e-Cigarette/Vaping Use: Never Used Second Hand Smoke Exposure: No Substance Use Type: Crack/Cocaine Advance Directives: Yes Advance Directives on File: Yes Advance Directives Date on File: 04/25/21 service: No Current occupational status: disabled Physical Exam ED Vital Signs: Vital Signs - 24 hr 12/15/23 16:57 12/15/23 18:00 12/15/23 19:45 Temperature 98.0 F 97.7 F 97.7 F Pulse Rate 59 56 53 Respiratory Rate 18 16 16 Blood Pressure 112/74 117/79 120/73 Pulse Oximetry 94 97 97 Oxygen Delivery Method Room Air Room Air Oxygen Flow Rate 12/15/23 21:44 12/15/23 23:20 12/15/23 23:57 Temperature 97.4 F 97.2 F Pulse Rate 53 56 52 Respiratory Rate 16 20 16 Blood Pressure 120/72 113/72 Pulse Oximetry 93 90 L Oxygen Delivery Method Room Air Room Air Oxygen Flow Rate 12/16/23 00:59 12/16/23 00:59 Temperature 97 F Pulse Rate 55 57 Respiratory Rate 17 16 Blood Pressure 121/80 Pulse Oximetry 89 L 95 Oxygen Delivery Method Room Air Nasal Cannula Oxygen Flow Rate 2 BMI result Body Mass Index 21.1 Appearance: Alert. Oriented X3. No acute distress. Eyes: Pupils equal, round and reactive to light. ENT: Pharynx normal. Neck: Normal inspection. Neck supple. No lymph nodes noted. No crepitus CVS: Normal heart rate and rhythm. Pulses normal. Normal S1 and S2 Respiratory: No respiratory distress. Breath sounds normal. No Wheezing. No rales Abdomen: Soft and nontender. No rigidity. No distention. good BS x4 Skin: Skin warm and dry. Normal skin color. Normal skin turgor. Extremities: No lower extremity edema. Neurovascular intact to all extremities. No Lacerations. No Rash Neuro: Oriented X 3. No motor deficit. No sensory deficit. Moving all extermities. No slurred speech Medications Administered Generic Name Dose Route Start Last Admin Trade Name Freq PRN Reason Stop Dose Admin Azithromycin 500 mg/ Sodium 250 mls @ 125 mls/hr 12/16/23 00:30 12/16/23 01:07 Chloride IV 125 mls/hr Q24H MICHAEL Administration Discontinued Medications Generic Name Dose Route Start Last Admin Trade Name Freq PRN Reason Stop Dose Admin Albuterol Sulfate 2.5 mg 12/15/23 23:03 12/15/23 23:18 Albuterol Sulfate (0.083%) 2.5 Mg/3 Ml Vial.Neb INHALE 12/15/23 23:04 2.5 mg ONCE ONE Administration Albuterol/Ipratropium 3 ml 12/15/23 23:03 12/15/23 23:18 Albuterol/Iprat 2.5/0.5mg 3 Ml Ampul.Neb INHALE 12/15/23 23:04 3 ml ONCE ONE Administration Iohexol 65 ml 12/15/23 20:13 12/15/23 20:14 Iohexol 350 Mg/Ml 100 Ml Infus..Btl IV 12/15/23 20:14 65 ml ONCE ONE Administration Methylprednisolone Sodium Succinate 125 mg 12/16/23 00:24 12/16/23 01:07 Methylprednisolone Sod Succ 125 Mg/2 Ml Vial IVPUSH 12/16/23 00:25 125 mg ONCE STA Administration Medical Decision Making Medical Decision Making [facility] Narrative: Patient is 58 years old with a history of HIV history of hepatitis-C, history of asthma presented today with having increasing shortness of breath coughing upper respiratory symptoms. Patient's chest x-ray showed nonspecific finding no focal infiltrate noted. White count is 4.4 this is approximately baseline for patient. Blood gas showed no CO2 retention. Patient's lactate is 1.2. Troponin negative BNP negative no signs of cardiac causes of shortness a breath patient's urine showed no signs of infection. Flu RSV COVID were all negative. A CTA of the chest was done. There is no gross evidence of focal infiltrate. No PE. Pulmonary nodule was noted on the CTA. Differential Diagnosis Pulmonary emboli, asthma, pneumonia, aspiration, COVID, congestive heart failure Admission/Observation Consideration of admission/observation: Escalation of care including admission/observation considered Consult Healthcare Provider Management of the patient was discussed with: Hospitalist Lab Data [facility] Lab Attestation statement: I reviewed the patient's lab results. 12/15/23 18:02 12/15/23 18:02 Labs: Lab Results 12/15/23 12/15/23 12/15/23 Range/Units 18:01 18:02 18:07 WBC 4.4 L (4.8-10.8) X10*3/uL RBC 4.66 (4.60-5.80) X10*6/uL Hgb 15.1 (14.0-18.0) g/dl Hct 44.6 (42.0-52.0) % MCV 95.7 (80.0-98.0) fL MCH 32.4 (27.0-33.0) pg MCHC 33.9 (31.0-36.0) g/dl RDW 13.9 (11.0-16.0) % Plt Count 157 L (160-400) X10*3/uL MPV 11.9 (9.4-12.4) fL Immature Gran % (Auto) 0.2 (0.0-0.4) % Neut % (Auto) 30.0 L (45-73) % Lymph % (Auto) 51.8 H (20-40) % [place] % (Auto) 13.6 H (2-11) % Eos % (Auto) 3.0 (0-4) % Baso % (Auto) 1.4 (0-2) % Lymph # (Auto) 2.3 (1.2-4.9) X10*3/uL [place] # (Auto) 0.6 (0.1-1.2) X10*3/uL Eos # (Auto) 0.1 (0.0-0.4) X10*3/uL Baso # (Auto) 0.1 (0.0-0.2) X10*3/uL Abs Immat Gran (auto) 0.01 (0.00-0.03) X10*3/uL Absolute Neuts (auto) 1.3 L (2.0-8.3) x10*3/uL Absolute Nucleated RBC 0.000 (0.0-0.012) X10*3/uL Nucleated RBC % (auto) 0.0 (0.0-0.2) /100WBC VBG pH 7.45 H (7.32-7.43) VBG pCO2 37 mmHg VBG pO2 72 mmHg VBG HCO3 26 (22-26) mmol/L VBG O2 Saturation 94.0 % VBG Base Excess 2.5 mmol/L Sodium 141 (135-145) mmol/L Potassium 4.2 (3.3-5.1) mmol/L Chloride 107 (96-108) mmol/L Carbon Dioxide 25 (22-29) mmol/L Anion Gap 13 (12-20) BUN 13 (9-16) mg/dL Creatinine 0.82 (0.5-1.4) mg/dL Estim Creat Clear Calc 81.2 Estimated GFR > 60 Random Glucose 91 (60-115) mg/dL Lactic Acid 1.2 (0.5-2.0) mmol/L Calcium 9.4 D (8.4-10.2) mg/dL Total Bilirubin 0.3 (0.0-1.0) mg/dL Direct Bilirubin 0.1 (0.0-0.5) mg/dL AST 30 (5-37) U/L ALT 36 (0-40) U/L Alkaline Phosphatase 63 (39-117) U/L Troponin I High Sens < 2.7 (<3.5-35.0) ng/L B-Natriuretic Peptide 17 (<100) pg/mL Total Protein 8.0 (6.5-8.0) g/dL Albumin 4.3 (3.5-5.0) g/dL Urine Color Urine Appearance Urine pH (5.0-9.0) Ur Specific [place] (1.005-1.025) Urine Protein (Neg-Trace) mg/dL Urine Glucose (UA) (Negative) mg/dL Urine Ketones (Negative) mg/dL Urine Blood (Negative) Urine Nitrite (Negative) Ur Leukocyte Esterase (Negative) Urine RBC (0-2) /HPF Urine WBC (0-5) /HPF Ur Squamous Epith Cells (0-2) /HPF Urine Bacteria (None Seen) Hyaline Casts (0-2) /LPF Influenza Type A (PCR) NEGATIVE (Negative) Influenza Type B (PCR) NEGATIVE (Negative) RSV RNA Qual (PCR) NEGATIVE (Negative) SARS-CoV-2 RNA (RT-PCR) NEGATIVE (Negative) 12/15/23 Range/Units 22:07 WBC (4.8-10.8) X10*3/uL RBC (4.60-5.80) X10*6/uL Hgb (14.0-18.0) g/dl Hct (42.0-52.0) % MCV (80.0-98.0) fL MCH (27.0-33.0) pg MCHC (31.0-36.0) g/dl RDW (11.0-16.0) % Plt Count (160-400) X10*3/uL MPV (9.4-12.4) fL Immature Gran % (Auto) (0.0-0.4) % Neut % (Auto) (45-73) % Lymph % (Auto) (20-40) % [place] % (Auto) (2-11) % Eos % (Auto) (0-4) % Baso % (Auto) (0-2) % Lymph # (Auto) (1.2-4.9) X10*3/uL [place] # (Auto) (0.1-1.2) X10*3/uL Eos # (Auto) (0.0-0.4) X10*3/uL Baso # (Auto) (0.0-0.2) X10*3/uL Abs Immat Gran (auto) (0.00-0.03) X10*3/uL Absolute Neuts (auto) (2.0-8.3) x10*3/uL Absolute Nucleated RBC (0.0-0.012) X10*3/uL Nucleated RBC % (auto) (0.0-0.2) /100WBC VBG pH (7.32-7.43) VBG pCO2 mmHg VBG pO2 mmHg VBG HCO3 (22-26) mmol/L VBG O2 Saturation % VBG Base Excess mmol/L Sodium (135-145) mmol/L Potassium (3.3-5.1) mmol/L Chloride (96-108) mmol/L Carbon Dioxide (22-29) mmol/L Anion Gap (12-20) BUN (9-16) mg/dL Creatinine (0.5-1.4) mg/dL Estim Creat Clear Calc Estimated GFR Random Glucose (60-115) mg/dL Lactic Acid (0.5-2.0) mmol/L Calcium (8.4-10.2) mg/dL Total Bilirubin (0.0-1.0) mg/dL Direct Bilirubin (0.0-0.5) mg/dL AST (5-37) U/L ALT (0-40) U/L Alkaline Phosphatase (39-117) U/L Troponin I High Sens (<3.5-35.0) ng/L B-Natriuretic Peptide (<100) pg/mL Total Protein (6.5-8.0) g/dL Albumin (3.5-5.0) g/dL Urine Color Yellow Urine Appearance Clear Urine pH 7.5 (5.0-9.0) Ur Specific [place] >= 1.030 H (1.005-1.025) Urine Protein Negative (Neg-Trace) mg/dL Urine Glucose (UA) Negative (Negative) mg/dL Urine Ketones Negative (Negative) mg/dL Urine Blood Negative (Negative) Urine Nitrite Negative (Negative) Ur Leukocyte Esterase Negative (Negative) Urine RBC 0-2 (0-2) /HPF Urine WBC 0-5 (0-5) /HPF Ur Squamous Epith Cells 0-2 (0-2) /HPF Urine Bacteria None Seen (None Seen) Hyaline Casts 0-2 (0-2) /LPF Influenza Type A (PCR) (Negative) Influenza Type B (PCR) (Negative) RSV RNA Qual (PCR) (Negative) SARS-CoV-2 RNA (RT-PCR) (Negative) Independent Interpretation I performed an independent interpretation of an: EKG (Sinus heart rate is 60 MD QRS QTC within normal limits is no acute ST segment elevation) and Plain X-Ray (Chest x-ray is grossly negative for any acute evidence of pneumonia pneumothorax) Radiology Impression Discussion of test interpretation with radiology: I have reviewed the radiologist's reading. Radiologist Impression: I reviewed radiology's reading of the CTA chest Independent Historian Clinical information obtained from an independent historian. History obtained from or confirmed by: EMS External Record Review External record reviewed: Inpatient record Chronic Conditions HIV, dysphagia, pneumonia, asthma Discharge Plan Discharge Clinical Impression: Asthma Patient Disposition: Home, Self-Care Prescriptions: No Action latanoprost 0.005 % drops 1 drp ophthalmic (eye) DAILY albuterol sulfate 90 mcg/actuation HFA aerosol inhaler 2 puff inhalation Q6H PRN (Reason: wheezing) gabapentin 600 mg tablet 600 mg feeding tube TID Qty: 20 0RF clonazepam 1 mg tablet 1 mg feeding tube DAILY Qty: 10 0RF amlodipine 5 mg tablet 5 mg feeding tube DAILY Qty: 30 0RF tramadol 50 mg tablet 50 mg feeding tube DAILY PRN (Reason: Pain) Qty: 14 0RF mirtazapine 30 mg tablet 60 mg feeding tube BEDTIME Qty: 20 0RF diphenhydramine HCl [Banophen] 25 mg tablet 25 mg feeding tube BEDTIME Qty: 20 0RF ferrous gluconate 324 mg (38 mg iron) tablet 324 mg feeding tube DAILY Qty: 14 0RF Rx Instructions: PATIENT STOP TAKING BECAUSE CONSTIPATION . HE IS AWARE HE SHOULD BE TAKING MED . Biktarvy 50-200-25 mg tablet 1 tab PO DAILY Qty: 14 0RF Rx Instructions: Ok to crush and give via feeding tube risperidone 3 mg tablet 2 mg feeding tube BEDTIME calcium carbonate-vitamin D3 600 mg-20 mcg (800 unit) tablet 1 tab PO DAILY tramadol 50 mg tablet 50 mg PO BID PRN (Reason: Pain (Scale Score 7-10)) risperidone 3 mg tablet 3 mg PO BEDTIME mirtazapine 30 mg tablet 60 mg PO BEDTIME fluticasone propion-salmeterol [Advair HFA] 230-21 mcg/actuation HFA aerosol inhaler 2 puff inhalation BID brimonidine-timolol 0.2-0.5 % drops 1 drp ophthalmic (eye) BID Print Language: [place]
[2023-12-15 18:00] VITALS: BP 117/79; PULSE 56; RESP 16; TEMP 36.5; O2SAT 97
[2023-12-15 18:09] LABS: MANUAL DIFF FLAG NO
[2023-12-15 18:12] LABS: Venous Blood Gas Refer to POC result
[2023-12-15 18:14] LABS: VBG Base Excess 2.5 mmol/L; VBG HCO3 26 mmol/L (22-26); VBG pCO2 37 mmHg; VBG pH 7.45 (7.32-7.43); VBG pO2 72 mmHg
[2023-12-15 18:18] LABS: Basophils Absolute Auto 0.1 X10*3/uL (0.0-0.2); Basophils Percent Auto 1.4 % (0-2); Eosinophils Absolute Auto 0.1 X10*3/uL (0.0-0.4); Hematocrit 44.6 % (42.0-52.0); Hemoglobin 15.1 g/dl (14.0-18.0); Imm Gran Abs Auto 0.01 X10*3/uL (0.00-0.03); Imm Gran Pct Auto 0.2 % (0.0-0.4); Lymphocytes Absolute Auto 2.3 X10*3/uL (1.2-4.9); Lymphocytes Percent Auto 51.8 % (20-40); Mean Corpuscular HGB Conc 33.9 g/dl (31.0-36.0); Mean Corpuscular Hemoglobin 32.4 pg (27.0-33.0); Mean Corpuscular Volume 95.7 fL (80.0-98.0); Mean Platelet Volume 11.9 fL (9.4-12.4); Monocytes Absolute Auto 0.6 X10*3/uL (0.1-1.2); Monocytes Percent Auto 13.6 % (2-11); Neutrophils Absolute Auto 1.3 x10*3/uL (2.0-8.3); Platelet Count 157 X10*3/uL (160-400); Red Blood Count 4.66 X10*6/uL (4.60-5.80); Red Cell Distribution Width 13.9 % (11.0-16.0); White Blood Count 4.4 X10*3/uL (4.8-10.8)
[2023-12-15 18:21] LABS: Lactic Acid 1.2 mmol/L (0.5-2.0)
[2023-12-15 18:26] LABS: Alanine Aminotransferase 36 U/L (0-40); Albumin Level 4.3 g/dL (3.5-5.0); Alkaline Phosphatase 63 U/L (39-117); Anion Gap 13 (12-20); Aspartate Amino Transferase 30 U/L (5-37); Bilirubin Direct 0.1 mg/dL (0.0-0.5); Bilirubin Total 0.3 mg/dL (0.0-1.0); Blood Urea Nitrogen 13 mg/dL (9-16); Calcium 9.4 mg/dL (8.4-10.2); Carbon Dioxide 25 mmol/L (22-29); Chloride 107 mmol/L (96-108); Creatinine Clr Calc Pharmacy 81.2; Estimated Glomerular Filt Rate > 60; Glucose Random 91 mg/dL (60-115); Potassium 4.2 mmol/L (3.3-5.1); Sodium 141 mmol/L (135-145)
[2023-12-15 18:30] LABS: B Type Natriuretic Peptide 17 pg/mL (<100)
[2023-12-15 18:38] LABS: Troponin-I High Sensitivity < 2.7 ng/L (<3.5-35.0)
[2023-12-15 18:52] LABS: Influenza A PCR NEGATIVE (Negative); Influenza B PCR NEGATIVE (Negative); Resp Syncy Virus RNA Qual PCR NEGATIVE (Negative); SARS COV2 PCR INHOUSE NEGATIVE (Negative)
[2023-12-15 19:45] VITALS: BP 120/73; PULSE 53; RESP 16; TEMP 36.5; O2SAT 97
[2023-12-15] MEDS: iohexoL 350 MG/ML 100 ML INFUS..BTL 65 ML IV (20:14)
[2023-12-15 21:44] VITALS: BP 120/72; PULSE 53; RESP 16; TEMP 36.3; O2SAT 93
[2023-12-15 22:17] LABS: Appearance Urine Clear; Color Urine Yellow; Glucose Urine UA Negative (Negative); Leukocyte Esterase Urine Negative (Negative); Nitrite Urine Negative (Negative); PH 7.5 (5.0-9.0); Specific Gravity - Urine >= 1.030 (1.005-1.025); Urine Blood Negative (Negative); Urine Ketones Negative (Negative); Urine Protein Negative (Neg-Trace)
[2023-12-15 22:19] LABS: Bacteria Urine None Seen (None Seen); Hyaline Casts Urine 0-2 /LPF (0-2); RBC Urine 0-2 /HPF (0-2); Squamous Epithelial Cell Urine 0-2 /HPF (0-2); WBC Urine 0-5 /HPF (0-5)
[2023-12-15] MEDS: Albuterol/Iprat 2.5/0.5MG 3 ML AMPUL.NEB INHALE (23:18)
[2023-12-15] MEDS: Albuterol Sulfate (0.083%) 2.5 MG/3 ML VIAL.NEB INHALE (23:18)
[2023-12-15 23:20] VITALS: PULSE 56; RESP 20; O2SAT 88
[2023-12-15 23:57] VITALS: BP 113/72; PULSE 52; RESP 16; TEMP 36.2; O2SAT 90
[2023-12-16] VITALS (13 sets, daily range): BP systolic 94–149; BP diastolic 59–82; PULSE 55–92; RESP 15–29; TEMP 36.1–36.6; O2SAT 88–95
--- NOTE | 2023-12-16 00:06 | PC.NURSE ---
resp at bedside for treatment and hospitalist in room to assess [address] orders
[2023-12-16] MEDS: methylPREDNISolone Sod Succ 125 MG/2 ML VIAL IVPUSH (01:07)
[2023-12-16] MEDS: Azithromycin 500 MG in 0.9 % Sodium Chloride 250 ML 125 MG IV (01:07)
[2023-12-16] MEDS: Albuterol/Iprat 2.5/0.5MG 3 ML AMPUL.NEB INHALE ×6 (02:25→22:09)
--- NOTE | 2023-12-16 04:34 | P.HPHOSP_ITS ---
History of Present Illness Date of Service: 12/16/23 Attending physician on admission: Herbie Rao Chief Complaint: Shortness on breath Benjamin Fall is a Filipino-speaking 58 years old man with past medical history significant for asthma, HIV compliant with HARRTs (Sep 2023 -HIV viral load undetectable, CD4 627), dysphagia, s/p G-tube placement, chronic hepatitis-C, depression and essential hypertension was brought to the emergency department via ambulance complaining of worsening shortness of breath over the last 3 days associated with productive cough of brownish sputum and chest tightness. He mentioned feeling generalized weak and unwell. He did report suggestive fever and chills. Denies headache or palpitations. He denied any acute gastrointestinal or genitourinary symptoms. In the ED was found to have stable vital signs except for O2 sats denies% on room air. There is no leukocytosis (WBC are at baseline). Mild thrombocytosis 157. Hemoglobin is normal. There are no electrolyte imbalances. Renal function is normal. LFTs are normal. Troponin and BNP are normal. CXR showed nonspecific slightly increased interstitial markings probably associated with asthma, bronchitis, reactive airway disease and atypical viral infections. ED tx: None. Review of Systems 2 Review of Systems: All 12 systems were reviewed and normal except as noted in HPI. [facility] Medical History Adult failure to thrive Adult failure to thrive Multiple rib fractures History of empyema of pleura (01/05/23) Hypertension Closed fracture of leg Hepatitis C Kidney stones Pleuritic chest pain Pneumonia Substance abuse Hemorrhoids Depression HIV (human immunodeficiency virus infection) Asthma Surgical History H/O hemorrhoidectomy Social History Household Members: Family Household Members Other:: sister Housing: Apartment Do you presently have visiting nurse or other home services: Yes Alcohol intake: never Patient Tobacco Use Status: Former Tobacco user Tobacco use type: Cigarette Smoked in Last 30 Days: No e-Cigarette/Vaping Use: Never Used Second Hand Smoke Exposure: No Substance Use Type: Crack/Cocaine Advance Directives: Yes Advance Directives on File: Yes Advance Directives Date on File: 04/25/21 service: No Current occupational status: disabled Meds Allergies Allergy/AdvReac Type Severity Reaction Status Date / Time Seasonal Allergies Allergy Intermediate Eye Verified 12/15/23 17:05 Drainage codeine Allergy Mild Rash Verified 12/15/23 17:05 [From Tylenol-Codeine #3] levofloxacin [From Levaquin] Allergy Mild Rash Verified 12/15/23 17:05 metoclopramide [From Reglan] Allergy Mild Rash Verified 12/15/23 17:05 acetaminophen Allergy Unknown Unknown Verified 12/15/23 17:05 [Tylenol-Codeine #3] Penicillins [PENICILLINS] Allergy Unknown Rash Verified 12/15/23 17:05 ibuprofen [From Motrin] AdvReac Unknown Reflux Verified 12/15/23 17:05 Active Medications: Current Medications Albuterol/Ipratropium (Albuterol/Iprat 2.5/0.5mg 3 Ml Ampul.Neb) 3 ml INHALE Q4H [facility] Last Admin: 12/16/23 02:25 Dose: 3 ml Amlodipine Besylate (Amlodipine Besylate 5 Mg Tablet) 5 mg G-TUBE DAILY [facility]; Protocol Bictegravir/Emtricitabine/Tenofovir (Bictegrav/Emtricit/Tenofov Ala Tablet) 1 tab PO DAILY [facility] Clonazepam (Clonazepam 1 Mg Tablet) 1 mg G-TUBE DAILY [facility] Ferrous Sulfate (Ferrous Sulfate 324 Mg Tablet.Dr) 324 mg PO DAILY [facility] Heparin Sodium (Porcine) (Heparin Sodium,Porcine 5,000 Unit/Ml Vial) 5,000 unit SUBCUT Q8H [facility] Azithromycin 500 mg/ Sodium (Chloride) 250 mls @ 125 mls/hr IV Q24H [facility] Last Infusion: 12/16/23 03:04 Dose: Infused Non-Formulary Medication (Brimonidine-Timolol) 1 drop EYE-BOTH BID [facility] Last Admin: 12/16/23 01:50 Dose: Not Given Non-Formulary Medication (Calcium Carbonate-Vitamin D3) 1 tab PO DAILY [facility] Risperidone (Risperidone 3 Mg Tablet) 3 mg PO BEDTIME [facility] Sodium Chloride (0.9 % Sodium Chloride Flush 3 Ml Syringe) 3 ml IVFLUSH QSHIFT [facility] Tramadol HCl (Tramadol Hcl 50 Mg Tablet) 50 mg G-TUBE BID PRN PRN Reason: Pain (Scale Score 7-10) Home Medications ?Medication ?Instructions ?Recorded ?Confirmed ?Last Taken ?Type latanoprost 0.005 % eye drops 1 drp ophthalmic (eye) DAILY 12/30/22 10/15/23 10/14/23 History albuterol sulfate 90 mcg/actuation 2 puff inhalation Q6H PRN wheezing 02/12/23 10/15/23 10/14/23 History aerosol inhaler brimonidine 0.2 %-timolol 0.5 % 1 drp ophthalmic (eye) BID 06/01/23 12/16/23 10/14/23 History eye drops fluticasone propionate 230 2 puff inhalation BID 06/01/23 10/15/23 10/14/23 History mcg-salmeterol 21 mcg/actuation HFA inhaler (Advair HFA) calcium carbonate 600 mg-vitamin 1 tab PO DAILY 10/15/23 12/16/23 10/14/23 History D3 20 mcg (800 unit) tablet risperidone 3 mg tablet 2 mg feeding tube BEDTIME 10/15/23 10/15/23 10/14/23 History mirtazapine 30 mg tablet 60 mg PO BEDTIME 12/16/23 12/16/23 Unknown History risperidone 3 mg tablet 3 mg PO BEDTIME 12/16/23 12/16/23 Unknown History tramadol 50 mg tablet 50 mg PO BID PRN Pain (Scale Score 12/16/23 12/16/23 Unknown History 7-10) Physical Exam 2 Vital Signs and Narrative: Vital Signs: Last Vital Signs Temp 97.7 F 12/16/23 04:00 Pulse 59 12/16/23 04:00 Resp 15 12/16/23 04:00 BP 110/69 12/16/23 04:00 Pulse Ox 94 12/16/23 04:00 O2 Del Method Nasal Cannula 12/16/23 04:00 O2 Flow Rate 2 12/16/23 04:00 BMI result Body Mass Index 21.1 Constitutional - Awake and Alert. Patient looks on portable due to chest pain and shortness of breath. Cachectic. HEENT - Pupils equally round. Normal sclerae. Dry oral mucosa. Oropharynx normal. Heart - Tachycardia. Normal rate. Lungs - Normal lung expansion, Normal respiratory effort, tachypnea. Bilateral end expiratory wheezing. Abdomen - NT / ND; +BS; No rebound or guarding. G-tube in place. Extremities - no calf tenderness bilaterally, no swelling Musculoskeletal - generalized atrophy. Skin - Warm/Dry Neurological - Alert & oriented x3. No focal weakness. Normal speech. Psychological - Depressed affect Results Labs 12/15/23 18:02 12/15/23 18:02 Labs: Laboratory Results - last 24 hr 12/15/23 12/15/23 12/15/23 18:01 18:02 18:07 MCV 95.7 MCH 32.4 MCHC 33.9 RDW 13.9 Plt Count 157 L MPV 11.9 Immature Gran % (Auto) 0.2 Neut % (Auto) 30.0 L Lymph % (Auto) 51.8 H [place] % (Auto) 13.6 H Eos % (Auto) 3.0 Baso % (Auto) 1.4 Lymph # (Auto) 2.3 [place] # (Auto) 0.6 Eos # (Auto) 0.1 Baso # (Auto) 0.1 Abs Immat Gran (auto) 0.01 Absolute Neuts (auto) 1.3 L Absolute Nucleated RBC 0.000 Nucleated RBC % (auto) 0.0 VBG pH 7.45 H VBG pCO2 37 VBG pO2 72 VBG HCO3 26 VBG O2 Saturation 94.0 VBG Base Excess 2.5 Anion Gap 13 Estim Creat Clear Calc 81.2 Estimated GFR > 60 Random Glucose 91 Lactic Acid 1.2 Calcium 9.4 D Total Bilirubin 0.3 Direct Bilirubin 0.1 AST 30 ALT 36 Alkaline Phosphatase 63 Troponin I High Sens < 2.7 B-Natriuretic Peptide 17 Total Protein 8.0 Albumin 4.3 Urine Color Urine Appearance Urine pH Ur Specific [place] Urine Protein Urine Glucose (UA) Urine Ketones Urine Blood Urine Nitrite Ur Leukocyte Esterase Urine RBC Urine WBC Ur Squamous Epith Cells Urine Bacteria Hyaline Casts Influenza Type A (PCR) NEGATIVE Influenza Type B (PCR) NEGATIVE RSV RNA Qual (PCR) NEGATIVE SARS-CoV-2 RNA (RT-PCR) NEGATIVE 12/15/23 22:07 MCV MCH MCHC RDW Plt Count MPV Immature Gran % (Auto) Neut % (Auto) Lymph % (Auto) [place] % (Auto) Eos % (Auto) Baso % (Auto) Lymph # (Auto) [place] # (Auto) Eos # (Auto) Baso # (Auto) Abs Immat Gran (auto) Absolute Neuts (auto) Absolute Nucleated RBC Nucleated RBC % (auto) VBG pH VBG pCO2 VBG pO2 VBG HCO3 VBG O2 Saturation VBG Base Excess Anion Gap Estim Creat Clear Calc Estimated GFR Random Glucose Lactic Acid Calcium Total Bilirubin Direct Bilirubin AST ALT Alkaline Phosphatase Troponin I High Sens B-Natriuretic Peptide Total Protein Albumin Urine Color Yellow Urine Appearance Clear Urine pH 7.5 Ur Specific [place] >= 1.030 H Urine Protein Negative Urine Glucose (UA) Negative Urine Ketones Negative Urine Blood Negative Urine Nitrite Negative Ur Leukocyte Esterase Negative Urine RBC 0-2 Urine WBC 0-5 Ur Squamous Epith Cells 0-2 Urine Bacteria None Seen Hyaline Casts 0-2 Influenza Type A (PCR) Influenza Type B (PCR) RSV RNA Qual (PCR) SARS-CoV-2 RNA (RT-PCR) Imaging Radiologist's Impressions: Impressions Chest X-Ray 12/15/23 17:20 IMPRESSION: Slightly increased interstitial markings which are nonspecific and could be associated with asthma, bronchitis, reactive airways disease or atypical viral infections. Chest CTA 12/15/23 20:14 IMPRESSION: 1. No pulmonary emboli. 2. 3 mm nodule posterior medial aspect right lower lobe. Follow-up as per Fleischner criteria. 3. Debris noted in the distal esophagus in the precarinal region extending into the left mainstem bronchus. 4. Questionable thickening of the visualized thoracic esophagus versus underdistention. 5. Multilevel thoracic vertebral body compression deformities. Redemonstrated left chronic rib fractures. 6. Small hiatal hernia. 7. Subcentimeter hypodense focus posterior aspect right hepatic lobe too small to characterize though statistically representing cysts. Various management parameters for solitary pulmonary nodules are in the literature. According to the Fleischner Society, recommendations for pulmonary nodules are as follows: According to the UPDATED 2017 Fleischner Society recommendations, the advised follow-up imaging for solid nodules < 6 mm is: LOW RISK PATIENT: No routine follow-up. Assessment and Plan (1) Acute asthma exacerbation: Qualifiers: Asthma severity: severe Asthma persistence: persistent Qualified Code(s): J45.51 - Severe persistent asthma with (acute) exacerbation Status: Acute (2) Hepatitis C: Qualifiers: Viral hepatitis chronicity: chronic Hepatic coma status: without hepatic coma Qualified Code(s): B18.2 - Chronic viral hepatitis C Status: Acute (3) Dysphagia: Qualifiers: Dysphagia type: unspecified Qualified Code(s): R13.10 - Dysphagia, unspecified Status: Acute Plan Benjamin Fall is a Filipino-speaking 58 years old man admitted with: * Acute asthma exacerbation with hypoxia. Admit to hospitalist service. Telemetry. Pulse oximetry. Supplemental O2 to keep O2 sats > 90%. Continue bronchodilator therapy. Solu-Medrol 125 mg IV x1. Start empiric IV antibiotic therapy with azithromycin IV. * Chest pain likely bronchospasm. Troponin negative. ECG showed no ischemia. Chest pain resolved after bronchodilator therapy. * Dehydration. LLR 1L bolus. * Dysphagia s/p G-tube. Keep NPO. * Essential hypertension. Continue amlodipine. * Chronic hepatitis-C. * History of HIV. Undetectable viral load and CD4 627 on September 2023. Check CD4. Contineu HARRTs. * Depression and anxiety. Continue risperidone, mirtazapine and clonazepam. * History of substance abuse. Check urine drug screening. DVT prophylaxis: Heparin Code status: Full Patient will need hospitalization for at least 2 midnights for acute exacerbation of bronchial asthma treatment with supplemental O2, bronchodilator therapy, IV antibiotic therapy and IV steroids. Quality Stroke Does the patient have a stroke diagnosis?: No VTE Prior VTE?: No VTE Risk Level:: Medical - moderate - high VTE Device Contraindication: Treatment Not Indicated VTE Drug Contraindication: N/A - Med Ordered
[2023-12-16] MEDS: Lactated Ringers 1,000 ML 999 ML IV (05:13)
--- NOTE | 2023-12-16 05:27 | PC.NURSE ---
Pt comes from home with c/o of cough, congestion, upper resp problems. Desat to 89 in ED and was placed on 2L with improvement to 95. PMH : hep C, hiv, asthma, FFT- with Gtube. Admit for acute asthma exacerbation with hypoxia, Plan to keep sats over 90 , empiric antibiotics, and steroids. 20 RAC. Pt is NPO
[2023-12-16 06:20] LABS: MANUAL DIFF FLAG NO
[2023-12-16 07:07] LABS: Basophils Percent Auto 0.7 % (0-2); Eosinophils Percent Auto 0.5 % (0-4); Hematocrit 43.4 % (42.0-52.0); Hemoglobin 14.8 g/dl (14.0-18.0); Imm Gran Abs Auto 0.02 X10*3/uL (0.00-0.03); Imm Gran Pct Auto 0.5 % (0.0-0.4); Lymphocytes Absolute Auto 0.7 X10*3/uL (1.2-4.9); Lymphocytes Percent Auto 17.5 % (20-40); Mean Corpuscular HGB Conc 34.1 g/dl (31.0-36.0); Mean Corpuscular Hemoglobin 32.8 pg (27.0-33.0); Mean Corpuscular Volume 96.2 fL (80.0-98.0); Mean Platelet Volume 11.9 fL (9.4-12.4); Monocytes Absolute Auto 0.1 X10*3/uL (0.1-1.2); Monocytes Percent Auto 1.4 % (2-11); Neutrophils Absolute Auto 3.4 x10*3/uL (2.0-8.3); Neutrophils Percent Auto 79.4 % (45-73); Platelet Count 156 X10*3/uL (160-400); Red Blood Count 4.51 X10*6/uL (4.60-5.80); Red Cell Distribution Width 13.6 % (11.0-16.0); White Blood Count 4.2 X10*3/uL (4.8-10.8)
--- NOTE | 2023-12-16 07:44 | PC.NURSE ---
Pt alerted RN that he has stabbing chest pain in substernal area for past 2 hours, 04/19. Pts vitals assessed, SPO2 on 2L O2 noted to be 88-90%, BPs have been trending in the 90s systolic. Pt is alert and answering questions. Admitting provider notified.
[2023-12-16] MEDS: 0.9 % Sodium Chloride Flush 3 ML SYRINGE IVFLUSH (07:46)
[2023-12-16 08:19] LABS: Barbiturates, Urine NOT DETECTED (Not Detect); Opiate Screen Urine NOT DETECTED (Not Detect); Phencyclidine Screen Urine NOT DETECTED (Not Detect)
[2023-12-16 08:20] LABS: Amphetamine Screen Urine NOT DETECTED (Not Detect); Benzodiazepines Screen Urine POSITIVE (Not Detect)
[2023-12-16 08:21] LABS: Cannabinoid Screen Urine NOT DETECTED (Not Detect); Cocaine Screen Urine NOT DETECTED (Not Detect); Fentanyl, urine Not Detected (Not Detect)
[2023-12-16] MEDS: Ketorolac Tromethamine 15 MG/ML VIAL IVPUSH (09:29)
[2023-12-16] MEDS: amLODIPine Besylate 5 MG TABLET G-TUBE (09:32)
[2023-12-16] MEDS: clonazePAM 1 MG TABLET G-TUBE (09:33)
[2023-12-16] MEDS: Heparin Sodium,Porcine 5,000 UNIT/ML VIAL 5000 UNIT SUBCUT ×2 (09:38→16:59)
[2023-12-16] MEDS: 0.9 % Sodium Chloride 1,000 ML 100 ML IVCONT (09:40)
[2023-12-16] MEDS: Brimonidine Tartrate 0.2% Oph 5 ML BOTTLE 1 DROP EYE-BOTH ×2 (09:45→21:50)
[2023-12-16] MEDS: timoloL maleate 0.5 % Oph Sol 5 ML DRBTL 1 DROP EYE-BOTH ×2 (09:45→21:50)
[2023-12-16] MEDS: Bictegrav/Emtricit/Tenofov Ala TABLET 1 TAB PO (10:58)
--- NOTE | 2023-12-16 11:02 | PC.NURSE ---
Pt administered meds via g-tube, placement confirmed via auscultation prior to administering meds. G-tube flushes easily, pt tolerated well.
[2023-12-16 11:06] LABS: Anion Gap 12 (12-20); Blood Urea Nitrogen 15 mg/dL (9-16); Calcium 8.9 mg/dL (8.4-10.2); Carbon Dioxide 24 mmol/L (22-29); Chloride 109 mmol/L (96-108); Creatinine Clr Calc Pharmacy 77.4; Estimated Glomerular Filt Rate > 60; Glucose Random 130 mg/dL (60-115); Potassium 3.8 mmol/L (3.3-5.1); Sodium 141 mmol/L (135-145)
--- NOTE | 2023-12-16 11:09 | P.PNIM_ITS ---
Subjective Subjective Date of Service: 12/16/23 Interval History: f/u on asthma exacerbation, no shortness of breah at this time c/o of chest pain, Physical Exam 2 Vital Signs: Vital Signs: Last Vital Signs Temp 97.5 F 12/16/23 07:48 Pulse 63 12/16/23 11:02 Resp 16 12/16/23 11:02 BP 101/59 L 12/16/23 11:02 Pulse Ox 94 12/16/23 11:02 O2 Del Method Aerosol Mask 12/16/23 11:02 O2 Flow Rate 3 12/16/23 07:48 BMI result Body Mass Index 21.1 General: AO X 3, no acute distress Resp: CTA bilateral CVS: S1,S2,RRR GI: +BS, NT, no distention Skin: No rash Neuro: motor grossly intact Psych: appropriate affect Objective Data Active Medications Albuterol/Ipratropium (Albuterol/Iprat 2.5/0.5mg 3 Ml Ampul.Neb) 3 ml INHALE Q4H [facility] Last Admin: 12/16/23 10:53 Dose: 3 ml Documented By: ANITHA Amlodipine Besylate (Amlodipine Besylate 5 Mg Tablet) 5 mg G-TUBE DAILY [facility]; Protocol Last Admin: 12/16/23 09:32 Dose: 5 mg Documented By: MARIA C Bictegravir/Emtricitabine/Tenofovir (Bictegrav/Emtricit/Tenofov Ala Tablet) 1 tab PO DAILY [facility] Last Admin: 12/16/23 10:58 Dose: 1 tab Documented By: MARIAC Brimonidine Tartrate (Brimonidine Tartrate 0.2% Oph 5 Ml Bottle) 1 drop EYE- BOTH BID [facility] Last Admin: 12/16/23 09:45 Dose: 1 drop Documented By: MARIA C Calcium Carbonate/Cholecalciferol (Calcium + Vitamin D 250 Mg Tablet) 250 mg PO BID@1200,1800 [facility] Clonazepam (Clonazepam 1 Mg Tablet) 1 mg G-TUBE DAILY [facility] Last Admin: 12/16/23 09:33 Dose: 1 mg Documented By: MARIA C Ferrous Sulfate (Ferrous Sulfate 324 Mg Tablet.Dr) 324 mg PO BID [facility] Last Admin: 12/16/23 10:31 Dose: Not Given Documented By: SWEETIE Non-Admin Reason: only form per pharmacy, g tube Heparin Sodium (Porcine) (Heparin Sodium,Porcine 5,000 Unit/Ml Vial) 5,000 unit SUBCUT Q8H [facility] Last Admin: 12/16/23 09:38 Dose: 5,000 unit Documented By: MARIA C Azithromycin 500 mg/ Sodium (Chloride) 250 mls @ 125 mls/hr IV Q24H [facility] Last Infusion: 12/16/23 03:04 Dose: Infused Documented By: LEONEL Sodium Chloride (Ns) 1,000 mls @ 100 mls/hr IVCONT .Q10H [facility] Stop: 12/16/23 18:29 Last Admin: 12/16/23 09:40 Dose: 100 mls/hr Documented By: MARIA C Risperidone (Risperidone 3 Mg Tablet) 3 mg PO BEDTIME [facility] Sodium Chloride (0.9 % Sodium Chloride Flush 3 Ml Syringe) 3 ml IVFLUSH QSHIFT [facility] Last Admin: 12/16/23 07:46 Dose: 3 ml Documented By: MARIA C Timolol Maleate (Timolol Maleate 0.5 % Oph [place] 5 Ml Drbtl) 1 drop EYE-BOTH BID [facility] Last Admin: 12/16/23 09:45 Dose: 1 drop Documented By: MARIA C Tramadol HCl (Tramadol Hcl 50 Mg Tablet) 50 mg G-TUBE BID PRN PRN Reason: Pain (Scale Score 7-10) Labs 12/16/23 06:12 12/16/23 06:12 Labs: Laboratory Results - last 24 hr 12/15/23 12/15/23 12/15/23 18:01 18:02 18:07 MCV 95.7 MCH 32.4 MCHC 33.9 RDW 13.9 Plt Count 157 L MPV 11.9 Immature Gran % (Auto) 0.2 Neut % (Auto) 30.0 L Lymph % (Auto) 51.8 H [place] % (Auto) 13.6 H Eos % (Auto) 3.0 Baso % (Auto) 1.4 Lymph # (Auto) 2.3 [place] # (Auto) 0.6 Eos # (Auto) 0.1 Baso # (Auto) 0.1 Abs Immat Gran (auto) 0.01 Absolute Neuts (auto) 1.3 L Absolute Nucleated RBC 0.000 Nucleated RBC % (auto) 0.0 VBG pH 7.45 H VBG pCO2 37 VBG pO2 72 VBG HCO3 26 VBG O2 Saturation 94.0 VBG Base Excess 2.5 Anion Gap 13 Estim Creat Clear Calc 81.2 Estimated GFR > 60 Random Glucose 91 Lactic Acid 1.2 Calcium 9.4 D Total Bilirubin 0.3 Direct Bilirubin 0.1 AST 30 ALT 36 Alkaline Phosphatase 63 Troponin I High Sens < 2.7 B-Natriuretic Peptide 17 Total Protein 8.0 Albumin 4.3 Urine Color Urine Appearance Urine pH Ur Specific [place] Urine Protein Urine Glucose (UA) Urine Ketones Urine Blood Urine Nitrite Ur Leukocyte Esterase Urine RBC Urine WBC Ur Squamous Epith Cells Urine Bacteria Hyaline Casts Urine Opiates Screen Urine Fentanyl Screen Ur Barbiturates Screen Ur Phencyclidine Scrn Ur Amphetamines Screen U Benzodiazepines Scrn Urine Cocaine Screen U Marijuana (THC) Screen Influenza Type A (PCR) NEGATIVE Influenza Type B (PCR) NEGATIVE RSV RNA Qual (PCR) NEGATIVE SARS-CoV-2 RNA (RT-PCR) NEGATIVE 12/15/23 12/16/23 22:07 06:12 MCV 96.2 MCH 32.8 MCHC 34.1 RDW 13.6 Plt Count 156 L MPV 11.9 Immature Gran % (Auto) 0.5 H Neut % (Auto) 79.4 H Lymph % (Auto) 17.5 L [place] % (Auto) 1.4 L Eos % (Auto) 0.5 Baso % (Auto) 0.7 Lymph # (Auto) 0.7 L [place] # (Auto) 0.1 Eos # (Auto) 0.0 Baso # (Auto) 0.0 Abs Immat Gran (auto) 0.02 Absolute Neuts (auto) 3.4 Absolute Nucleated RBC 0.000 Nucleated RBC % (auto) 0.0 VBG pH VBG pCO2 VBG pO2 VBG HCO3 VBG O2 Saturation VBG Base Excess Anion Gap 12 Estim Creat Clear Calc 77.4 Estimated GFR > 60 Random Glucose 130 H Lactic Acid Calcium 8.9 Total Bilirubin Direct Bilirubin AST ALT Alkaline Phosphatase Troponin I High Sens B-Natriuretic Peptide Total Protein Albumin Urine Color Yellow Urine Appearance Clear Urine pH 7.5 Ur Specific [place] >= 1.030 H Urine Protein Negative Urine Glucose (UA) Negative Urine Ketones Negative Urine Blood Negative Urine Nitrite Negative Ur Leukocyte Esterase Negative Urine RBC 0-2 Urine WBC 0-5 Ur Squamous Epith Cells 0-2 Urine Bacteria None Seen Hyaline Casts 0-2 Urine Opiates Screen NOT DETECTED Urine Fentanyl Screen Not Detected Ur Barbiturates Screen NOT DETECTED Ur Phencyclidine Scrn NOT DETECTED Ur Amphetamines Screen NOT DETECTED U Benzodiazepines Scrn POSITIVE H Urine Cocaine Screen NOT DETECTED U Marijuana (THC) Screen NOT DETECTED Influenza Type A (PCR) Influenza Type B (PCR) RSV RNA Qual (PCR) SARS-CoV-2 RNA (RT-PCR) Assessment and Plan (1) Acute asthma exacerbation: Status: Acute Plan 58 yo M with HIV viral CD4 627 in september, mild persistent asthma, history HCV, and history empyema, recurrent admissions here with Acute asthma exacerbation with hypoxia. - Pulse oximetry. Supplemental O2 to keep O2 sats > 90%. Continue bronchodilator therapy. empiric azithromycin IV. IV steroid Chest pain likely bronchospasm. Troponin negative. ECG showed no ischemia. Symptomatic treatment Dehydration. LLR 1L bolus. Dysphagia s/p G-tube. Keep NPO. Resume tube feed Essential hypertension. Continue amlodipine. Chronic hepatitis-C. stable History of HIV. Undetectable viral load and CD4 627 on September 2023. Check CD4. Contineu HARRTs. Depression and anxiety. Continue risperidone, mirtazapine and clonazepam. History of substance abuse. Check urine drug screening. DVT prophylaxis: Heparin Code status: Full need for inpatient acute exacerbation of bronchial asthma treatment with supplemental O2, bronchodilator therapy, IV antibiotic therapy and IV steroids. Quality Stroke Does the patient have a stroke diagnosis?: No VTE Prior VTE?: No VTE Risk Level:: Medical - moderate - high VTE Device Contraindication: Treatment Not Indicated VTE Drug Contraindication: N/A - Med Ordered
--- NOTE | 2023-12-16 12:08 | PHA.MEDREC ---
Pharmacy Consult ? Medication Reconciliation Pharmacy has completed the medication reconciliation. Utilized rn radiation oncology services. Patient reported all meds with nods for yes and shaking head for no as patient is mostly nonverbal. Pt reports no longer being on propanolol 120mg daily.
[2023-12-16] MEDS: Calcium + Vitamin D 250 MG TABLET PO ×2 (13:26→16:55)
[2023-12-16] MEDS: Gabapentin 600 MG TABLET G-TUBE ×2 (14:55→22:11)
--- NOTE | 2023-12-16 18:06 | PC.NURSE ---
Pt reporting chest pain anterior chest, stabbing, 04/19, reports it is the same episode as this morning. Provider alerted.
--- NOTE | 2023-12-16 19:41 | PC.NURSE ---
Addendum entered by Miesha Spauldingarnacion 12/16/23 19:46: NS infusion complete. IV line flushed- patent and intact. Original Note: Assumed care of pt at 1900. PT alert and oriented. skin pwd. PT coughing and complaining of chest pain. O2 sat low, vitals otherwise stable. RT at bedside providing schedule breathing treatment. NS running at 100mls. Feeding running at 20mls per hour. Provided pt with assistance to use urinal. 500ml output including previous output. Call jansen within reach plan of care ongoing.
[2023-12-16] MEDS: traMADoL HCL 50 MG TABLET G-TUBE (21:49)
[2023-12-16] MEDS: Mirtazapine 30 MG TABLET 60 MG G-TUBE (21:50)
[2023-12-16] MEDS: Latanoprost 0.005 % Ophth Sol 2.5 ML DROPS 1 DROP EYE-BOTH (22:11)
[2023-12-16] MEDS: risperiDONE 3 MG TABLET PO (22:11)
--- NOTE | 2023-12-16 22:34 | PC.NURSE ---
5ml of residual noted in gtube. medications administered as per ,mar. iron held d/t not being crushable. will request liquid form from hospitalist
[2023-12-17] VITALS (15 sets, daily range): BP systolic 114–140; BP diastolic 70–90; PULSE 65–75; RESP 13–21; TEMP 36.1–36.6; O2SAT 88–99; BMI 21.1
[2023-12-17] MEDS: Albuterol/Iprat 2.5/0.5MG 3 ML AMPUL.NEB INHALE ×6 (02:11→23:16)
[2023-12-17] MEDS: Azithromycin 500 MG in 0.9 % Sodium Chloride 250 ML 125 MG IV ×2 (02:56→23:48)
[2023-12-17] MEDS: 0.9 % Sodium Chloride Flush 3 ML SYRINGE IVFLUSH ×4 (02:56→20:15)
[2023-12-17] MEDS: Heparin Sodium,Porcine 5,000 UNIT/ML VIAL 5000 UNIT SUBCUT ×3 (02:57→17:19)
--- NOTE | 2023-12-17 03:10 | PC.NURSE ---
Medication administration delayed due to t/w providing care to other patients. PT resting comfortably. respirations even and unlabored. Call jansen within reach. plan of care ongoing
--- NOTE | 2023-12-17 05:21 | MHC.EDTECH ---
Pt was given a complete bed bath with total assistance of 2. A [place] catheter was placed to help with voiding as pt needed assistance with incontinence of bladder. Pt was repositioned and they communicated their gratitude for us taking care of them.
[2023-12-17] MEDS: Fluticasone/Vilanterol 200/25 BLST.W.DEV 1 PUFF INHALE (07:42)
[2023-12-17] MEDS: clonazePAM 1 MG TABLET G-TUBE (09:10)
[2023-12-17] MEDS: Gabapentin 600 MG TABLET G-TUBE ×3 (09:10→20:05)
[2023-12-17] MEDS: Brimonidine Tartrate 0.2% Oph 5 ML BOTTLE 1 DROP EYE-BOTH ×2 (09:11→20:06)
[2023-12-17] MEDS: Bictegrav/Emtricit/Tenofov Ala TABLET 1 TAB PO (09:11)
[2023-12-17] MEDS: amLODIPine Besylate 5 MG TABLET G-TUBE (09:11)
[2023-12-17] MEDS: timoloL maleate 0.5 % Oph Sol 5 ML DRBTL 1 DROP EYE-BOTH ×2 (09:13→20:06)
--- NOTE | 2023-12-17 09:15 | MHC.EDTECH ---
mouth care was done. adl's was done. pt was reposition evry 2 hrs.
--- NOTE | 2023-12-17 09:55 | HO.PM.IMPN ---
Subjective Subjective Date of Service: 12/17/23 Interval History: f/u on asthma exacerbation, still sob and desat without O2 has intermittent chest pain Physical Exam Vital Signs: Vital Signs: Last Vital Signs Temp 98 F 12/17/23 08:34 Pulse 75 12/17/23 08:34 Resp 17 12/17/23 08:34 BP 128/84 12/17/23 08:34 Pulse Ox 99 12/17/23 08:34 O2 Del Method Nasal Cannula 12/17/23 08:34 O2 Flow Rate 2 12/17/23 08:34 BMI result Body Mass Index 21.1 General: AO X 3, no acute distress Resp: CTA bilateral CVS: S1,S2,RRR GI: +BS, NT, no distention Skin: No rash Neuro: motor grossly intact Psych: appropriate affect Objective Data Active Medications Albuterol/Ipratropium (Albuterol/Iprat 2.5/0.5mg 3 Ml Ampul.Neb) 3 ml INHALE Q4H [facility] Last Admin: 12/17/23 07:42 Dose: 3 ml Documented By: ANITHA Amlodipine Besylate (Amlodipine Besylate 5 Mg Tablet) 5 mg G-TUBE DAILY [facility]; Protocol Last Admin: 12/17/23 09:11 Dose: 5 mg Documented By: ARCHANA Bictegravir/Emtricitabine/Tenofovir (Bictegrav/Emtricit/Tenofov Ala Tablet) 1 tab PO DAILY [facility] Last Admin: 12/17/23 09:11 Dose: 1 tab Documented By: ARCHANA Brimonidine Tartrate (Brimonidine Tartrate 0.2% Oph 5 Ml Bottle) 1 drop EYE-BOTH BID [facility] Last Admin: 12/17/23 09:11 Dose: 1 drop Documented By: ARCHANA Calcium Carbonate/Cholecalciferol (Calcium + Vitamin D 250 Mg Tablet) 250 mg PO BID@1200,1800 [facility] Last Admin: 12/16/23 16:55 Dose: 250 mg Documented By: MARIA C Clonazepam (Clonazepam 1 Mg Tablet) 1 mg G-TUBE DAILY [facility] Last Admin: 12/17/23 09:10 Dose: 1 mg Documented By: ARCHANA Fluticasone/Vilanterol (Fluticasone/Vilanterol 200/25 Blst.W.Dev) 1 puff INHALE RDAILY [facility] Last Admin: 12/17/23 07:42 Dose: 1 puff Documented By: ANITHA Gabapentin (Gabapentin 600 Mg Tablet) 600 mg G-TUBE TID [facility] Last Admin: 12/17/23 09:10 Dose: 600 mg Documented By: ARCHANA Heparin Sodium (Porcine) (Heparin Sodium,Porcine 5,000 Unit/Ml Vial) 5,000 unit SUBCUT Q8H [facility] Last Admin: 12/17/23 09:12 Dose: 5,000 unit Documented By: ARCHANA Azithromycin 500 mg/ Sodium (Chloride) 250 mls @ 125 mls/hr IV Q24H [facility] Last Admin: 12/17/23 02:56 Dose: 125 mls/hr Documented By: MACARIO Latanoprost (Latanoprost 0.005 % Ophth Carol 2.5 Ml Drops) 1 drop EYE-BOTH BEDTIME [facility] Last Admin: 12/16/23 22:11 Dose: 1 drop Documented By: MACARIO Mirtazapine (Mirtazapine 30 Mg Tablet) 60 mg G-TUBE BEDTIME [facility] Last Admin: 12/16/23 21:50 Dose: 60 mg Documented By: MACARIO Risperidone (Risperidone 3 Mg Tablet) 3 mg PO BEDTIME [facility] Last Admin: 12/16/23 22:11 Dose: 3 mg Documented By: MACARIO Sodium Chloride (0.9 % Sodium Chloride Flush 3 Ml Syringe) 3 ml IVFLUSH QSHIFT [facility] Last Admin: 12/17/23 09:11 Dose: 3 ml Documented By: ARCHANA Timolol Maleate (Timolol Maleate 0.5 % Oph Carol 5 Ml Drbtl) 1 drop EYE-BOTH BID [facility] Last Admin: 12/17/23 09:13 Dose: 1 drop Documented By: ARCHANA Tramadol HCl (Tramadol Hcl 50 Mg Tablet) 50 mg G-TUBE BID PRN PRN Reason: Pain (Scale Score 7-10) Last Admin: 12/16/23 21:49 Dose: 50 mg Documented By: MACARIO Labs 12/16/23 06:12 12/16/23 06:12 Labs: Laboratory Results - last 24 hr 12/16/23 06:12 Anion Gap 12 Estim Creat Clear Calc 77.4 Estimated GFR > 60 Random Glucose 130 H Calcium 8.9 Microbiology Microbiology Results: Microbiology 12/15/23 18:36 Blood Culture - Preliminary Blood - Venous No growth after 24 hours. 12/15/23 18:02 Blood Culture - Preliminary Blood - Venous No growth after 24 hours. Assessment and Plan (1) Acute asthma exacerbation: Status: Acute Plan 58 yo M with HIV viral CD4 627 in september, mild persistent asthma, history HCV, and history empyema, recurrent admissions here with Acute asthma exacerbation with hypoxia. - Supplemental O2 to keep O2 sats > 90%. Continue bronchodilator by Neb. empiric azithromycin IV. IV steroid for 1 more day Chest pain likely bronchospasm. Troponin negative. ECG showed no ischemia. Symptomatic treatment Dehydration. resolved with IVF and fluid through tube feed Dysphagia s/p G-tube. Keep NPO. Resume tube feed Essential hypertension. Continue amlodipine. Chronic hepatitis-C. stable History of HIV. Undetectable viral load and CD4 627 on September 2023. Check CD4. Contineu HARRTs. Depression and anxiety. Continue risperidone, mirtazapine and clonazepam. History of substance abuse. + Benzo DVT prophylaxis: Heparin Code status: Full need for inpatient acute exacerbation of bronchial asthma treatment with supplemental O2, bronchodilator therapy, IV antibiotic therapy and IV steroids. Quality Stroke Does the patient have a stroke diagnosis?: No VTE Prior VTE?: No VTE Risk Level:: Medical - moderate - high VTE Device Contraindication: Treatment Not Indicated VTE Drug Contraindication: N/A - Med Ordered
[2023-12-17] MEDS: Calcium + Vitamin D 250 MG TABLET PO ×2 (12:51→17:19)
--- NOTE | 2023-12-17 13:32 | PC.NURSE ---
VS - [id number] ([facility]) -97% ON 2L/M VIA N/C
--- NOTE | 2023-12-17 13:54 | MHC.CLN ---
NUTRITION TUBE FEED ORDER FOR JEVITY @45 ML PER HOUR CONTINUOUS. DOES NOT MEET ESTIMATED NUTRITIONAL NEEDS. RECOMMEND JEVITY 1.0 AT 65 ML PER HOUR CONTINUOUS. FREE WATER FLUSHES 120 ML Q 6 HOURS. PROVIDES 1654 KCALS (27.9 KCALS/KG), 69 G PROTEIN (1.17 G/KG), FREE WATER FROM FORMULA AND FLUSHES 1783 ML (30.1 ML/KG). REVIEW OF WEIGHT HX SHOWS WEIGHT OVERALL STABLE X 2 MONTHS. QUALIFIES MODERATELY MALNOURISHED IN THE CONTEXT OF CHRONIC ILLNESS. FOLLOW FOR TUBE FEED TOLERANCE, RESIDUALS, AND LYTES. SEE CLINICAL NUTRITION ASSESSMENT 12/17/23.
[2023-12-17] MEDS: traMADoL HCL 50 MG TABLET G-TUBE ×2 (15:47→23:40)
--- NOTE | 2023-12-17 15:53 | MHC.CM.PN ---
IMM delivered. Patient is from home w/ sister. Services include: SN w/ [facility], [employer] 19 day hrs/wk w/ [facility], [employer] Patient has a G-Tube. Kangaroo pump and all feeding supplies through [facility]. [employer] and sister assist w/ ADL's. PCP: Dr. Lg Keenan at [facility] HCP on file and verified. Agent is Ute, patient's sister. DP: Goal is home, resume services via BLS. CM will continue to follow for DC needs.
--- NOTE | 2023-12-17 16:31 | PC.NURSE ---
Residual at this time is zero MLs
[2023-12-17] MEDS: Mirtazapine 30 MG TABLET 60 MG G-TUBE (20:05)
[2023-12-17] MEDS: risperiDONE 3 MG TABLET PO (20:05)
[2023-12-17] MEDS: Latanoprost 0.005 % Ophth Sol 2.5 ML DROPS 1 DROP EYE-BOTH (20:06)
[2023-12-18] VITALS (11 sets, daily range): BP systolic 115–140; BP diastolic 72–82; PULSE 62–89; RESP 15–18; TEMP 36.3–36.6; O2SAT 88–97
[2023-12-18] MEDS: Heparin Sodium,Porcine 5,000 UNIT/ML VIAL 5000 UNIT SUBCUT ×3 (01:49→17:13)
[2023-12-18] MEDS: Albuterol/Iprat 2.5/0.5MG 3 ML AMPUL.NEB INHALE ×6 (04:01→23:22)
[2023-12-18] MEDS: Gabapentin 600 MG TABLET G-TUBE ×3 (07:48→20:43)
[2023-12-18] MEDS: clonazePAM 1 MG TABLET G-TUBE (07:48)
[2023-12-18] MEDS: Bictegrav/Emtricit/Tenofov Ala TABLET 1 TAB PO (07:48)
[2023-12-18] MEDS: amLODIPine Besylate 5 MG TABLET G-TUBE (07:48)
[2023-12-18] MEDS: 0.9 % Sodium Chloride Flush 3 ML SYRINGE IVFLUSH ×3 (07:49→20:43)
[2023-12-18] MEDS: timoloL maleate 0.5 % Oph Sol 5 ML DRBTL 1 DROP EYE-BOTH ×2 (07:49→20:43)
[2023-12-18] MEDS: Brimonidine Tartrate 0.2% Oph 5 ML BOTTLE 1 DROP EYE-BOTH ×2 (07:49→20:43)
[2023-12-18] MEDS: traMADoL HCL 50 MG TABLET G-TUBE ×2 (07:53→17:14)
[2023-12-18] MEDS: Fluticasone/Vilanterol 200/25 BLST.W.DEV 1 PUFF INHALE (08:11)
--- NOTE | 2023-12-18 09:39 | P.PNIM_ITS ---
Subjective Subjective Date of Service: 12/18/23 Interval History: f/u on asthma exacerbation, less sob has intermittent chest pain still on O2 Physical Exam 2 Vital Signs: Vital Signs: Last Vital Signs Temp 98 F 12/18/23 07:01 Pulse 72 12/18/23 08:13 Resp 17 12/18/23 08:13 BP 140/74 H 12/18/23 07:01 Pulse Ox 93 12/18/23 07:02 O2 Del Method Nasal Cannula 12/18/23 07:02 O2 Flow Rate 3 12/18/23 07:02 BMI result Body Mass Index 21.1 Objective Data Active Medications Albuterol/Ipratropium (Albuterol/Iprat 2.5/0.5mg 3 Ml Ampul.Neb) 3 ml INHALE Q4H [facility] Last Admin: 12/18/23 08:12 Dose: 3 ml Documented By: KIRK Amlodipine Besylate (Amlodipine Besylate 5 Mg Tablet) 5 mg G-TUBE DAILY [facility]; Protocol Last Admin: 12/18/23 07:48 Dose: 5 mg Documented By: UMBERTO Bictegravir/Emtricitabine/Tenofovir (Bictegrav/Emtricit/Tenofov Ala Tablet) 1 tab PO DAILY [facility] Last Admin: 12/18/23 07:48 Dose: 1 tab Documented By: UMBERTO Brimonidine Tartrate (Brimonidine Tartrate 0.2% Oph 5 Ml Bottle) 1 drop EYE- BOTH BID [facility] Last Admin: 12/18/23 07:49 Dose: 1 drop Documented By: UMBERTO Calcium Carbonate/Cholecalciferol (Calcium + Vitamin D 250 Mg Tablet) 250 mg PO BID@1200,1800 [facility] Last Admin: 12/17/23 17:19 Dose: 250 mg Documented By: JD Clonazepam (Clonazepam 1 Mg Tablet) 1 mg G-TUBE DAILY [facility] Last Admin: 12/18/23 07:48 Dose: 1 mg Documented By: UMBERTO Fluticasone/Vilanterol (Fluticasone/Vilanterol 200/25 Blst.W.Dev) 1 puff INHALE RDAILY [facility] Last Admin: 12/18/23 08:11 Dose: 1 puff Documented By: KIRK Gabapentin (Gabapentin 600 Mg Tablet) 600 mg G-TUBE TID [facility] Last Admin: 12/18/23 07:48 Dose: 600 mg Documented By: UMBERTO Heparin Sodium (Porcine) (Heparin Sodium,Porcine 5,000 Unit/Ml Vial) 5,000 unit SUBCUT Q8H [facility] Last Admin: 12/18/23 07:48 Dose: 5,000 unit Documented By: UMBERTO Azithromycin 500 mg/ Sodium (Chloride) 250 mls @ 125 mls/hr IV Q24H [facility] Last Infusion: 12/18/23 01:51 Dose: Infused Documented By: AIDE Latanoprost (Latanoprost 0.005 % Ophth Carol 2.5 Ml Drops) 1 drop EYE-BOTH BEDTIME [facility] Last Admin: 12/17/23 20:06 Dose: 1 drop Documented By: AIDE Mirtazapine (Mirtazapine 30 Mg Tablet) 60 mg G-TUBE BEDTIME [facility] Last Admin: 12/17/23 20:05 Dose: 60 mg Documented By: AIDE Risperidone (Risperidone 3 Mg Tablet) 3 mg PO BEDTIME [facility] Last Admin: 12/17/23 20:05 Dose: 3 mg Documented By: AIDE Sodium Chloride (0.9 % Sodium Chloride Flush 3 Ml Syringe) 3 ml IVFLUSH QSHIFT [facility] Last Admin: 12/18/23 07:49 Dose: 3 ml Documented By: UMBERTO Timolol Maleate (Timolol Maleate 0.5 % Oph Carol 5 Ml Drbtl) 1 drop EYE-BOTH BID [facility] Last Admin: 12/18/23 07:49 Dose: 1 drop Documented By: UMBERTO Tramadol HCl (Tramadol Hcl 50 Mg Tablet) 50 mg G-TUBE BID PRN PRN Reason: Pain (Scale Score 7-10) Last Admin: 12/18/23 07:53 Dose: 50 mg Documented By: UMBERTO Labs 12/16/23 06:12 12/16/23 06:12 Microbiology Microbiology Results: Microbiology 12/15/23 18:36 Blood Culture - Preliminary Blood - Venous No growth after 48 hours. 12/15/23 18:02 Blood Culture - Preliminary Blood - Venous No growth after 48 hours. Assessment and Plan (1) Acute asthma exacerbation: Status: Acute (2) Dysphagia: Status: Acute (3) Asthma: Status: Acute Plan 58 yo M with HIV viral CD4 627 in september, mild persistent asthma, history HCV, and history empyema, recurrent admissions here with Acute asthma exacerbation with hypoxia. - Supplemental O2 to keep O2 sats > 90%. Continue bronchodilator by Neb. empiric azithromycin IV. PO Prednisone. Wean off O2 Chest pain likely bronchospasm. Troponin negative. ECG showed no ischemia. Symptomatic treatment Dehydration. resolved with IVF and fluid through tube feed Dysphagia s/p G-tube. Keep NPO. Tube feed per nutritional recommendation Essential hypertension. Continue amlodipine. Chronic hepatitis-C. stable History of HIV. Undetectable viral load and CD4 627 on September 2023. Check CD4. Contineu HARRTs. Depression and anxiety. Continue risperidone, mirtazapine and clonazepam. History of substance abuse. + Benzo DVT prophylaxis: Heparin Code status: Full need for inpatient acute exacerbation of bronchial asthma treatment with supplemental O2, bronchodilator therapy, IV antibiotic therapy and IV steroids. Quality Stroke Does the patient have a stroke diagnosis?: No VTE Prior VTE?: No VTE Risk Level:: Medical - moderate - high VTE Device Contraindication: Treatment Not Indicated VTE Drug Contraindication: N/A - Med Ordered
[2023-12-18] MEDS: predniSONE 20 MG TABLET PO (10:34)
[2023-12-18 10:58] LABS: Absolute CD3 Count 496 cells/uL (840-3060); Absolute CD4 Count 219 cells/uL (490-1740); Absolute CD8 Count 320 cells/uL (180-1170); Absolute Lymphocytes 714 cells/uL (850-3900); CD4 CD8 Ratio 0.68 (0.86-5.00); Percent CD3 Cells 69 % (57-85); Percent CD4 Cells 31 % (30-61); Percent CD8 Cells 45 % (12-42)
[2023-12-18] MEDS: Calcium + Vitamin D 250 MG TABLET PO ×2 (12:56→17:13)
[2023-12-18] MEDS: Mirtazapine 30 MG TABLET 60 MG G-TUBE (20:43)
[2023-12-18] MEDS: Latanoprost 0.005 % Ophth Sol 2.5 ML DROPS 1 DROP EYE-BOTH (20:43)
[2023-12-18] MEDS: risperiDONE 3 MG TABLET PO (20:43)
[2023-12-19] VITALS (8 sets, daily range): BP systolic 109–125; BP diastolic 68–73; PULSE 70–89; RESP 14–20; TEMP 35.9–36.3; O2SAT 92–97
[2023-12-19] MEDS: Azithromycin 500 MG in 0.9 % Sodium Chloride 250 ML 125 MG IV (00:16)
[2023-12-19] MEDS: Heparin Sodium,Porcine 5,000 UNIT/ML VIAL 5000 UNIT SUBCUT ×3 (00:17→17:28)
[2023-12-19] MEDS: Fluticasone/Vilanterol 200/25 BLST.W.DEV 1 PUFF INHALE (07:31)
[2023-12-19] MEDS: Albuterol/Iprat 2.5/0.5MG 3 ML AMPUL.NEB INHALE ×4 (07:31→19:19)
[2023-12-19] MEDS: Gabapentin 600 MG TABLET G-TUBE ×3 (09:17→21:18)
[2023-12-19] MEDS: 0.9 % Sodium Chloride Flush 3 ML SYRINGE IVFLUSH ×3 (09:17→21:18)
[2023-12-19] MEDS: clonazePAM 1 MG TABLET G-TUBE (09:17)
[2023-12-19] MEDS: predniSONE 20 MG TABLET PO (09:17)
[2023-12-19] MEDS: amLODIPine Besylate 5 MG TABLET G-TUBE (09:17)
[2023-12-19] MEDS: traMADoL HCL 50 MG TABLET G-TUBE ×2 (09:17→21:18)
[2023-12-19] MEDS: Bictegrav/Emtricit/Tenofov Ala TABLET 1 TAB PO (09:17)
[2023-12-19] MEDS: timoloL maleate 0.5 % Oph Sol 5 ML DRBTL 1 DROP EYE-BOTH ×2 (09:36→21:19)
[2023-12-19] MEDS: Brimonidine Tartrate 0.2% Oph 5 ML BOTTLE 1 DROP EYE-BOTH ×2 (09:36→21:19)
--- NOTE | 2023-12-19 09:47 | HO.PM.IMPN ---
Subjective Subjective Date of Service: 12/19/23 Interval History: f/u on asthma exacerbation, O2 requirement increased yesterday and sounded junky and seemed to improve with suctioning Physical Exam Vital Signs: Vital Signs: Last Vital Signs Temp 96.6 F L 12/19/23 07:13 Pulse 89 12/19/23 07:34 Resp 18 12/19/23 07:34 BP 109/70 12/19/23 07:13 Pulse Ox 92 12/19/23 07:13 O2 Del Method Nasal Cannula 12/19/23 07:13 O2 Flow Rate 4 12/19/23 07:13 BMI result Body Mass Index 21.1 General: AO X 3, no acute distress Resp: rhonchi bilaterally CVS: S1,S2,RRR GI: +BS, NT, no distention Skin: No rash Neuro: motor grossly intact Psych: appropriate affect Objective Data Active Medications Albuterol/Ipratropium (Albuterol/Iprat 2.5/0.5mg 3 Ml Ampul.Neb) 3 ml INHALE Q4H [facility] Last Admin: 12/19/23 07:31 Dose: 3 ml Documented By: MIRTHA Amlodipine Besylate (Amlodipine Besylate 5 Mg Tablet) 5 mg G-TUBE DAILY [facility]; Protocol Last Admin: 12/19/23 09:17 Dose: 5 mg Documented By: SARAH Bictegravir/Emtricitabine/Tenofovir (Bictegrav/Emtricit/Tenofov Ala Tablet) 1 tab PO DAILY [facility] Last Admin: 12/19/23 09:17 Dose: 1 tab Documented By: SARAH Brimonidine Tartrate (Brimonidine Tartrate 0.2% Oph 5 Ml Bottle) 1 drop EYE-BOTH BID [facility] Last Admin: 12/19/23 09:36 Dose: 1 drop Documented By: NAZANIN Calcium Carbonate/Cholecalciferol (Calcium + Vitamin D 250 Mg Tablet) 250 mg PO BID@1200,1800 [facility] Last Admin: 12/18/23 17:13 Dose: 250 mg Documented By: UMBERTO Clonazepam (Clonazepam 1 Mg Tablet) 1 mg G-TUBE DAILY [facility] Last Admin: 12/19/23 09:17 Dose: 1 mg Documented By: SARAH Fluticasone/Vilanterol (Fluticasone/Vilanterol 200/25 Blst.W.Dev) 1 puff INHALE RDAILY [facility] Last Admin: 12/19/23 07:31 Dose: 1 puff Documented By: MIRTHA Gabapentin (Gabapentin 600 Mg Tablet) 600 mg G-TUBE TID [facility] Last Admin: 12/19/23 09:17 Dose: 600 mg Documented By: SARAH Heparin Sodium (Porcine) (Heparin Sodium,Porcine 5,000 Unit/Ml Vial) 5,000 unit SUBCUT Q8H [facility] Last Admin: 12/19/23 09:23 Dose: 5,000 unit Documented By: NAZANIN Azithromycin 500 mg/ Sodium (Chloride) 250 mls @ 125 mls/hr IV Q24H [facility] Last Infusion: 12/19/23 02:22 Dose: Infused Documented By: AIDE Latanoprost (Latanoprost 0.005 % Ophth Carol 2.5 Ml Drops) 1 drop EYE-BOTH BEDTIME [facility] Last Admin: 12/18/23 20:43 Dose: 1 drop Documented By: AIDE Mirtazapine (Mirtazapine 30 Mg Tablet) 60 mg G-TUBE BEDTIME [facility] Last Admin: 12/18/23 20:43 Dose: 60 mg Documented By: AIDE Prednisone (Prednisone 20 Mg Tablet) 20 mg PO DAILY [facility] Last Admin: 12/19/23 09:17 Dose: 20 mg Documented By: SARAH Risperidone (Risperidone 3 Mg Tablet) 3 mg PO BEDTIME [facility] Last Admin: 12/18/23 20:43 Dose: 3 mg Documented By: AIDE Sodium Chloride (0.9 % Sodium Chloride Flush 3 Ml Syringe) 3 ml IVFLUSH QSHIFT [facility] Last Admin: 12/19/23 09:17 Dose: 3 ml Documented By: SARAH Timolol Maleate (Timolol Maleate 0.5 % Oph Carol 5 Ml Drbtl) 1 drop EYE-BOTH BID [facility] Last Admin: 12/19/23 09:36 Dose: 1 drop Documented By: NAZANIN Tramadol HCl (Tramadol Hcl 50 Mg Tablet) 50 mg G-TUBE BID PRN PRN Reason: Pain (Scale Score 7-10) Last Admin: 12/19/23 09:17 Dose: 50 mg Documented By: SARAH Labs 12/16/23 06:12 12/16/23 06:12 Labs: Laboratory Results - last 24 hr 12/16/23 06:12 Lymphocyte Subset Cmmnt TNP Total Lymphocytes 714 L % CD3 Cells 69 Absolute CD3 Count 496 L % CD4 Cells 31 Absolute CD4 Count 219 L CD4/CD8 Ratio 0.68 L % CD8 Cells 45 H Absolute CD8 Count 320 Assessment and Plan (1) Acute asthma exacerbation: Status: Acute Plan 58 yo M with HIV viral CD4 627 in september, mild persistent asthma, history HCV, and history empyema, recurrent admissions here with Acute asthma exacerbation with hypoxia. - Supplemental O2 to keep O2 sats > 90%. Continue bronchodilator by Neb. empiric azithromycin IV. PO Prednisone. Wean off O2 - repeat cxr in light of increased O2 requirement Intermittent chest pain. Troponin negative. ECG showed no ischemia. Symptomatic treatment ? esophagitis, PPI and if not improving gi for possible EGD Dehydration. resolved with IVF and fluid through tube feed Dysphagia s/p G-tube. Keep NPO. Tube feed per nutritional recommendation Essential hypertension. Continue amlodipine. Chronic hepatitis-C. stable History of HIV. Undetectable viral load and CD4 627 on September 2023. Check CD4. Contineu HARRTs. Depression and anxiety. Continue risperidone, mirtazapine and clonazepam. History of substance abuse. + Benzo DVT prophylaxis: Heparin Code status: Full need for inpatient acute exacerbation of bronchial asthma treatment with supplemental O2, bronchodilator therapy, IV antibiotic therapy and IV steroids. Quality Stroke Does the patient have a stroke diagnosis?: No VTE Prior VTE?: No VTE Risk Level:: Medical - moderate - high VTE Device Contraindication: Treatment Not Indicated VTE Drug Contraindication: N/A - Med Ordered
--- NOTE | 2023-12-19 10:48 | MHC.CM.PN ---
EMR reviewed. Per MD rounds patient is not medically cleared for dc at this time. CM will continue to follow.
--- NOTE | 2023-12-19 11:46 | MHC.CLN ---
F/U TUBE FEED RUNNING AT MAX GOAL RATE. TOLERATING WELL. MAX GOAL RATE JEVITY 1.0 AT 65 ML PER HOUR CONTINUOUS. FREE WATER FLUSHES 120 ML Q 6 HOURS. PROVIDES 1654 KCALS (27.9 KCALS/KG), 69 G PROTEIN (1.17 G/KG), FREE WATER FROM FORMULA AND FLUSHES 1783 ML (30.1 ML/KG). FOLLOW FOR TUBE FEED TOLERANCE, RESIDUALS, AND LYTES.
[2023-12-19 12:16] LABS: Hemoglobin 14.9 g/dl (14.0-18.0); Mean Corpuscular HGB Conc 34.7 g/dl (31.0-36.0); Mean Corpuscular Volume 95.1 fL (80.0-98.0); Platelet Count 147 X10*3/uL (160-400); Red Blood Count 4.52 X10*6/uL (4.60-5.80); Red Cell Distribution Width 13.8 % (11.0-16.0); White Blood Count 8.9 X10*3/uL (4.8-10.8)
[2023-12-19] MEDS: Calcium + Vitamin D 250 MG TABLET PO ×2 (12:26→17:28)
[2023-12-19] MEDS: Omeprazole/Na Bicarb Oral Susp 20 MG/10 ML UD Cup G-TUBE (12:26)
[2023-12-19 12:35] LABS: Anion Gap 12 (12-20); Blood Urea Nitrogen 13 mg/dL (9-16); Calcium 8.8 mg/dL (8.4-10.2); Carbon Dioxide 28 mmol/L (22-29); Chloride 104 mmol/L (96-108); Creatinine Clr Calc Pharmacy 88.8; Estimated Glomerular Filt Rate > 60; Glucose Random 123 mg/dL (60-115); Phosphorus 2.7 mg/dL (2.7-4.5); Potassium 4.1 mmol/L (3.3-5.1); Sodium 140 mmol/L (135-145)
[2023-12-19] MEDS: oxyCODONE HCl Immed Release 5 MG TABLET G-TUBE (18:19)
[2023-12-19] MEDS: Mirtazapine 30 MG TABLET 60 MG G-TUBE (21:18)
[2023-12-19] MEDS: risperiDONE 3 MG TABLET PO (21:18)
[2023-12-19] MEDS: Latanoprost 0.005 % Ophth Sol 2.5 ML DROPS 1 DROP EYE-BOTH (21:19)
[2023-12-20] VITALS (9 sets, daily range): BP systolic 115–120; BP diastolic 73–77; PULSE 69–89; RESP 14–18; TEMP 36–36.7; O2SAT 89–94
[2023-12-20] MEDS: Azithromycin 500 MG in 0.9 % Sodium Chloride 250 ML 125 MG IV (00:23)
[2023-12-20] MEDS: Heparin Sodium,Porcine 5,000 UNIT/ML VIAL 5000 UNIT SUBCUT ×3 (00:25→16:31)
[2023-12-20] MEDS: Omeprazole/Na Bicarb Oral Susp 20 MG/10 ML UD Cup G-TUBE ×2 (06:20→19:27)
[2023-12-20] MEDS: Fluticasone/Vilanterol 200/25 BLST.W.DEV 1 PUFF INHALE (08:02)
[2023-12-20] MEDS: Albuterol/Iprat 2.5/0.5MG 3 ML AMPUL.NEB INHALE ×5 (08:03→23:43)
[2023-12-20] MEDS: 0.9 % Sodium Chloride Flush 3 ML SYRINGE IVFLUSH ×2 (09:28→16:50)
[2023-12-20] MEDS: amLODIPine Besylate 5 MG TABLET G-TUBE (09:35)
[2023-12-20] MEDS: predniSONE 20 MG TABLET PO (09:36)
[2023-12-20] MEDS: traMADoL HCL 50 MG TABLET G-TUBE ×2 (09:36→20:18)
[2023-12-20] MEDS: Gabapentin 600 MG TABLET G-TUBE ×3 (09:36→19:26)
[2023-12-20] MEDS: clonazePAM 1 MG TABLET G-TUBE (09:36)
[2023-12-20] MEDS: timoloL maleate 0.5 % Oph Sol 5 ML DRBTL 1 DROP EYE-BOTH ×2 (09:55→19:26)
[2023-12-20] MEDS: Brimonidine Tartrate 0.2% Oph 5 ML BOTTLE 1 DROP EYE-BOTH ×2 (09:55→19:26)
[2023-12-20] MEDS: Bictegrav/Emtricit/Tenofov Ala TABLET 1 TAB PO (11:39)
[2023-12-20] MEDS: Calcium + Vitamin D 250 MG TABLET PO ×2 (11:40→18:40)
--- NOTE | 2023-12-20 14:46 | P.PNIM_ITS ---
Subjective Subjective Date of Service: 12/20/23 Interval History: Being followed for acute asthma exacerbation hypoxia Denies recurrent chest pain, no fevers, no chills, tolerating diet no nausea, no vomiting, no abdominal pain, on 5 L of OxyMask, finger oximetry 92%, no acute issues overnight. Review of Systems All other system reviewed and negative. Physical Exam 2 Vital Signs: Vital Signs: Last Vital Signs Temp 97.4 F 12/20/23 07:54 Pulse 74 12/20/23 11:12 Resp 16 12/20/23 11:12 BP 119/74 12/20/23 07:54 Pulse Ox 90 L 12/20/23 07:54 O2 Del Method Oxymask 12/20/23 07:54 O2 Flow Rate 4 12/20/23 07:54 BMI result Body Mass Index 21.1 Const: Other: General awake alert x3, in no acute distress. Neck supple no JVD. CVS regular rate rhythm, Respiratory lungs clear to auscultation, no respiratory distress, no wheeze, no rhonchi. Gastrointestinal abdomen soft, non tender, bowel sounds audible,no guarding , no rigidity. Extremities no edema. Neuro non focal Skin no rash Psych appropriate affect Objective Data Active Medications Albuterol/Ipratropium (Albuterol/Iprat 2.5/0.5mg 3 Ml Ampul.Neb) 3 ml INHALE Q4H [facility] Last Admin: 12/20/23 11:12 Dose: 3 ml Documented By: NEFTALY Amlodipine Besylate (Amlodipine Besylate 5 Mg Tablet) 5 mg G-TUBE DAILY [facility]; Protocol Last Admin: 12/20/23 09:35 Dose: 5 mg Documented By: YVES Bictegravir/Emtricitabine/Tenofovir (Bictegrav/Emtricit/Tenofov Ala Tablet) 1 tab PO DAILY [facility] Last Admin: 12/20/23 11:39 Dose: 1 tab Documented By: YVES Brimonidine Tartrate (Brimonidine Tartrate 0.2% Oph 5 Ml Bottle) 1 drop EYE- BOTH BID [facility] Last Admin: 12/20/23 09:55 Dose: 1 drop Documented By: YVES Calcium Carbonate/Cholecalciferol (Calcium + Vitamin D 250 Mg Tablet) 250 mg PO BID@1200,1800 [facility] Last Admin: 12/20/23 11:40 Dose: 250 mg Documented By: YVES Clonazepam (Clonazepam 1 Mg Tablet) 1 mg G-TUBE DAILY [facility] Last Admin: 12/20/23 09:36 Dose: 1 mg Documented By: YVES Fluticasone/Vilanterol (Fluticasone/Vilanterol 200/25 Blst.W.Dev) 1 puff INHALE RDAILY [facility] Last Admin: 12/20/23 08:02 Dose: 1 puff Documented By: ANSELMO Gabapentin (Gabapentin 600 Mg Tablet) 600 mg G-TUBE TID [facility] Last Admin: 12/20/23 09:36 Dose: 600 mg Documented By: YVES Heparin Sodium (Porcine) (Heparin Sodium,Porcine 5,000 Unit/Ml Vial) 5,000 unit SUBCUT Q8H [facility] Last Admin: 12/20/23 09:36 Dose: 5,000 unit Documented By: YVES Azithromycin 500 mg/ Sodium (Chloride) 250 mls @ 125 mls/hr IV Q24H [facility] Last Infusion: 12/20/23 02:39 Dose: Infused Documented By: AIDE Latanoprost (Latanoprost 0.005 % Ophth Carol 2.5 Ml Drops) 1 drop EYE-BOTH BEDTIME [facility] Last Admin: 12/19/23 21:19 Dose: 1 drop Documented By: AIDE Mirtazapine (Mirtazapine 30 Mg Tablet) 60 mg G-TUBE BEDTIME [facility] Last Admin: 12/19/23 21:18 Dose: 60 mg Documented By: AIDE Omeprazole (Omeprazole/Na Bicarb Oral Susp 20 Mg/10 Ml Ud Cup) 20 mg G-TUBE DAILY@0630 [facility] Last Admin: 12/20/23 06:20 Dose: 20 mg Documented By: AIDE Comments: downtime Prednisone (Prednisone 20 Mg Tablet) 20 mg PO DAILY [facility] Last Admin: 12/20/23 09:36 Dose: 20 mg Documented By: YVES Risperidone (Risperidone 3 Mg Tablet) 3 mg PO BEDTIME [facility] Last Admin: 12/19/23 21:18 Dose: 3 mg Documented By: AIDE Sodium Chloride (0.9 % Sodium Chloride Flush 3 Ml Syringe) 3 ml IVFLUSH QSHIFT [facility] Last Admin: 12/20/23 09:28 Dose: 3 ml Documented By: YVES Timolol Maleate (Timolol Maleate 0.5 % Oph Carol 5 Ml Drbtl) 1 drop EYE-BOTH BID [facility] Last Admin: 12/20/23 09:55 Dose: 1 drop Documented By: YVES Tramadol HCl (Tramadol Hcl 50 Mg Tablet) 50 mg G-TUBE BID PRN PRN Reason: Pain (Scale Score 7-10) Last Admin: 12/20/23 09:36 Dose: 50 mg Documented By: YVES Labs 12/19/23 11:56 12/19/23 11:56 Assessment and Plan (1) Acute asthma exacerbation: Status: Acute Plan 58 yo M with HIV viral CD4 627 in september, mild persistent asthma, history HCV, and history empyema, recurrent admissions here with Acute asthma exacerbation with hypoxia. -wean oxygen as tolerated, not on home oxygen ,keep O2 sats > 90%. Continue DuoNeb updraft q.4 hours, on empiric azithromycin IV d4/5. Continue po Prednisone ,wean gradually. repeat cxr showed left lung base infiltrate versus atelectasis Will add incentive spirometry, out of bed to chair and ambulation as tolerated Intermittent chest pain. Troponin negative. ECG showed no ischemia. Symptomatic treatment , recent upper endoscopy showed finding suggestive of Smith's esophagus will increase PPI to b.i.d. Dehydration. resolved with IVF and fluid through tube feed Dysphagia s/p G-tube. Keep NPO. Tube feed per nutritional recommendation Essential hypertension. Continue amlodipine. Chronic hepatitis-C. stable History of HIV. Undetectable viral load and CD4 627 on September 2023. Check CD4. Contineu HARRTs. Depression and anxiety. Continue risperidone, mirtazapine and clonazepam. History of substance abuse. + Benzo DVT prophylaxis: Heparin Code status: Full need for inpatient acute exacerbation of bronchial asthma treatment with supplemental O2, bronchodilator therapy, IV antibiotic therapy and IV steroids. Quality Stroke Does the patient have a stroke diagnosis?: No VTE Prior VTE?: No VTE Risk Level:: Medical - moderate - high VTE Device Contraindication: Treatment Not Indicated VTE Drug Contraindication: N/A - Med Ordered
[2023-12-20] MEDS: Latanoprost 0.005 % Ophth Sol 2.5 ML DROPS 1 DROP EYE-BOTH (19:27)
[2023-12-21] VITALS (9 sets, daily range): BP systolic 112–141; BP diastolic 78–85; PULSE 61–82; RESP 16–20; TEMP 36–36.4; O2SAT 91–96
[2023-12-21] MEDS: Azithromycin 500 MG in 0.9 % Sodium Chloride 250 ML 125 MG IV (00:07)
[2023-12-21] MEDS: 0.9 % Sodium Chloride Flush 3 ML SYRINGE IVFLUSH ×4 (00:08→20:24)
[2023-12-21] MEDS: Heparin Sodium,Porcine 5,000 UNIT/ML VIAL 5000 UNIT SUBCUT ×3 (00:08→17:51)
[2023-12-21] MEDS: Mirtazapine 30 MG TABLET 60 MG G-TUBE ×2 (02:22→20:24)
[2023-12-21] MEDS: risperiDONE 3 MG TABLET PO ×2 (02:22→20:24)
--- NOTE | 2023-12-21 02:22 | PC.NURSE ---
patients evening meds had squirted out of gtube due to malfunction and he is now complainng of insomnia due to not recieving his remeron and risperidal so dose is being given now
[2023-12-21] MEDS: Fluticasone/Vilanterol 200/25 BLST.W.DEV 1 PUFF INHALE (07:43)
[2023-12-21] MEDS: Albuterol/Iprat 2.5/0.5MG 3 ML AMPUL.NEB INHALE ×5 (07:43→22:53)
[2023-12-21] MEDS: Omeprazole/Na Bicarb Oral Susp 20 MG/10 ML UD Cup G-TUBE ×2 (09:14→20:24)
[2023-12-21] MEDS: Bictegrav/Emtricit/Tenofov Ala TABLET 1 TAB PO (09:15)
[2023-12-21] MEDS: traMADoL HCL 50 MG TABLET G-TUBE ×2 (09:15→19:25)
[2023-12-21] MEDS: amLODIPine Besylate 5 MG TABLET G-TUBE (09:16)
[2023-12-21] MEDS: clonazePAM 1 MG TABLET G-TUBE (09:17)
[2023-12-21] MEDS: Gabapentin 600 MG TABLET G-TUBE ×3 (09:17→20:24)
[2023-12-21] MEDS: predniSONE 20 MG TABLET PO (09:17)
[2023-12-21] MEDS: timoloL maleate 0.5 % Oph Sol 5 ML DRBTL 1 DROP EYE-BOTH ×2 (09:19→20:29)
[2023-12-21] MEDS: Brimonidine Tartrate 0.2% Oph 5 ML BOTTLE 1 DROP EYE-BOTH ×2 (09:36→20:29)
--- NOTE | 2023-12-21 12:35 | HO.PM.IMPN ---
Subjective Subjective Date of Service: 12/21/23 Interval History: Being followed for acute hypoxic respiratory failure due to acute asthma exacerbation Feeling better, drinking milk shake, denies nausea vomiting, coughing or choking episodes, denies fever, no chills, denies chest pain shortness of breath and cough is improving, no acute events overnight. Review of Systems All other system reviewed and negative. Physical Exam Vital Signs: Vital Signs: Last Vital Signs Temp 96.8 F 12/21/23 07:38 Pulse 82 12/21/23 11:17 Resp 18 12/21/23 11:17 BP 133/79 12/21/23 07:38 Pulse Ox 95 12/21/23 07:38 O2 Del Method Nasal Cannula 12/21/23 07:38 O2 Flow Rate 4 12/21/23 07:38 BMI result Body Mass Index 21.1 Const: Other: General awake alert x3, in no acute distress. Neck supple, no JVD. CVS regular rate rhythm, Respiratory lungs clear to auscultation, no respiratory distress, no wheeze, no rhonchi. Gastrointestinal abdomen soft, non tender, bowel sounds audible,no guarding , no rigidity. Extremities no edema. Neuro non focal Skin no rash Psych appropriate affect Objective Data Active Medications Albuterol/Ipratropium (Albuterol/Iprat 2.5/0.5mg 3 Ml Ampul.Neb) 3 ml INHALE Q4H [facility] Last Admin: 12/21/23 11:16 Dose: 3 ml Documented By: JOYCE Amlodipine Besylate (Amlodipine Besylate 5 Mg Tablet) 5 mg G-TUBE DAILY [facility]; Protocol Last Admin: 12/21/23 09:16 Dose: 5 mg Documented By: JEET Bictegravir/Emtricitabine/Tenofovir (Bictegrav/Emtricit/Tenofov Ala Tablet) 1 tab PO DAILY [facility] Last Admin: 12/21/23 09:15 Dose: 1 tab Documented By: JEET Brimonidine Tartrate (Brimonidine Tartrate 0.2% Oph 5 Ml Bottle) 1 drop EYE-BOTH BID [facility] Last Admin: 12/21/23 09:36 Dose: 1 drop Documented By: JEET Calcium Carbonate/Cholecalciferol (Calcium + Vitamin D 250 Mg Tablet) 250 mg PO BID@1200,1800 [facility] Last Admin: 12/20/23 18:40 Dose: 250 mg Documented By: YVES Clonazepam (Clonazepam 1 Mg Tablet) 1 mg G-TUBE DAILY [facility] Last Admin: 12/21/23 09:17 Dose: 1 mg Documented By: JEET Fluticasone/Vilanterol (Fluticasone/Vilanterol 200/25 Blst.W.Dev) 1 puff INHALE RDAILY [facility] Last Admin: 12/21/23 07:43 Dose: 1 puff Documented By: JOYCE Gabapentin (Gabapentin 600 Mg Tablet) 600 mg G-TUBE TID [facility] Last Admin: 12/21/23 09:17 Dose: 600 mg Documented By: JEET Heparin Sodium (Porcine) (Heparin Sodium,Porcine 5,000 Unit/Ml Vial) 5,000 unit SUBCUT Q8H [facility] Last Admin: 12/21/23 09:14 Dose: 5,000 unit Documented By: JEET Azithromycin 500 mg/ Sodium (Chloride) 250 mls @ 125 mls/hr IV Q24H [facility] Last Infusion: 12/21/23 02:07 Dose: Infused Documented By: SAMREEN Latanoprost (Latanoprost 0.005 % Ophth Carol 2.5 Ml Drops) 1 drop EYE-BOTH BEDTIME [facility] Last Admin: 12/20/23 19:27 Dose: 1 drop Documented By: SAMREEN Melatonin (Melatonin 3 Mg Tablet) 6 mg PO BEDTIME PRN PRN Reason: Insomnia Mirtazapine (Mirtazapine 30 Mg Tablet) 60 mg G-TUBE BEDTIME [facility] Last Admin: 12/21/23 02:22 Dose: 60 mg Documented By: SAMREEN Omeprazole (Omeprazole/Na Bicarb Oral Susp 20 Mg/10 Ml Ud Cup) 20 mg G-TUBE BID [facility] Last Admin: 12/21/23 09:14 Dose: 20 mg Documented By: JEET Prednisone (Prednisone 20 Mg Tablet) 20 mg PO DAILY [facility] Last Admin: 12/21/23 09:17 Dose: 20 mg Documented By: JEET Risperidone (Risperidone 3 Mg Tablet) 3 mg PO BEDTIME [facility] Last Admin: 12/21/23 02:22 Dose: 3 mg Documented By: SAMREEN Sodium Chloride (0.9 % Sodium Chloride Flush 3 Ml Syringe) 3 ml IVFLUSH QSHIFT [facility] Last Admin: 12/21/23 09:17 Dose: 3 ml Documented By: JEET Timolol Maleate (Timolol Maleate 0.5 % Oph Carol 5 Ml Drbtl) 1 drop EYE-BOTH BID [facility] Last Admin: 12/21/23 09:19 Dose: 1 drop Documented By: JEET Tramadol HCl (Tramadol Hcl 50 Mg Tablet) 50 mg G-TUBE BID PRN PRN Reason: Pain (Scale Score 7-10) Last Admin: 12/21/23 09:15 Dose: 50 mg Documented By: JEET Labs 12/19/23 11:56 12/19/23 11:56 Microbiology Microbiology Results: Microbiology 12/15/23 18:36 Blood Culture - Final Blood - Venous No growth after 5 days. 12/15/23 18:02 Blood Culture - Final Blood - Venous No growth after 5 days. Assessment and Plan (1) Acute asthma exacerbation: Status: Acute Plan 58 yo M with HIV viral CD4 627 in september, mild persistent asthma, history HCV, and history empyema, recurrent admissions here with Acute asthma exacerbation with hypoxia. wean oxygen as tolerated, not on home oxygen ,keep O2 sats > 90%. Continue DuoNeb updraft q.4 hours, on empiric azithromycin IV d5/5. Continue po Prednisone ,wean gradually. repeat cxr showed left lung base infiltrate versus atelectasis Encourage incentive spirometry, out of bed to chair and ambulation tid. Intermittent chest pain. Troponin negative. ECG showed no ischemia. Symptomatic treatment , recent upper endoscopy showed finding suggestive of Smith's esophagus will increase PPI to b.i.d. Dehydration. resolved with IVF and fluid through tube feed. Dysphagia s/p G-tube. Tube feed per nutritional recommendation, has been on milkshakes at home. Essential hypertension. Continue amlodipine. Chronic hepatitis-C. stable History of HIV. Undetectable viral load and CD4 627 on September 2023. Check CD4. Contineu HARRTs. Depression and anxiety. Continue risperidone, mirtazapine and clonazepam. History of substance abuse. + Benzo patient on Klonopin at home. DVT prophylaxis: Heparin subQ Code status: Full need for inpatient acute exacerbation of bronchial asthma treatment with supplemental O2, bronchodilator therapy, IV antibiotic therapy. Quality Stroke Does the patient have a stroke diagnosis?: No VTE Prior VTE?: No VTE Risk Level:: Medical - moderate - high VTE Device Contraindication: Treatment Not Indicated VTE Drug Contraindication: N/A - Med Ordered
[2023-12-21] MEDS: Calcium + Vitamin D 250 MG TABLET PO ×2 (13:29→17:55)
[2023-12-21] MEDS: Melatonin 3 MG TABLET 6 MG PO (20:24)
[2023-12-21] MEDS: Latanoprost 0.005 % Ophth Sol 2.5 ML DROPS 1 DROP EYE-BOTH (20:29)
[2023-12-22] VITALS (8 sets, daily range): BP systolic 123–134; BP diastolic 78–87; PULSE 63–73; RESP 15–20; TEMP 36.2–36.4; O2SAT 92–95
[2023-12-22] MEDS: Azithromycin 500 MG in 0.9 % Sodium Chloride 250 ML 125 MG IV (00:02)
[2023-12-22] MEDS: Heparin Sodium,Porcine 5,000 UNIT/ML VIAL 5000 UNIT SUBCUT ×3 (00:11→17:04)
[2023-12-22] MEDS: Fluticasone/Vilanterol 200/25 BLST.W.DEV 1 PUFF INHALE (07:29)
[2023-12-22] MEDS: Albuterol/Iprat 2.5/0.5MG 3 ML AMPUL.NEB INHALE ×4 (07:31→22:55)
[2023-12-22] MEDS: predniSONE 20 MG TABLET PO (08:48)
[2023-12-22] MEDS: amLODIPine Besylate 5 MG TABLET G-TUBE (08:48)
[2023-12-22] MEDS: 0.9 % Sodium Chloride Flush 3 ML SYRINGE IVFLUSH ×3 (08:48→20:25)
[2023-12-22] MEDS: Gabapentin 600 MG TABLET G-TUBE ×3 (08:48→20:24)
[2023-12-22] MEDS: clonazePAM 1 MG TABLET G-TUBE (08:48)
[2023-12-22] MEDS: Omeprazole/Na Bicarb Oral Susp 20 MG/10 ML UD Cup G-TUBE ×2 (08:48→20:24)
[2023-12-22] MEDS: Bictegrav/Emtricit/Tenofov Ala TABLET 1 TAB PO (08:48)
[2023-12-22] MEDS: Brimonidine Tartrate 0.2% Oph 5 ML BOTTLE 1 DROP EYE-BOTH ×2 (08:50→20:24)
[2023-12-22] MEDS: timoloL maleate 0.5 % Oph Sol 5 ML DRBTL 1 DROP EYE-BOTH ×2 (08:50→20:25)
[2023-12-22] MEDS: traMADoL HCL 50 MG TABLET G-TUBE ×2 (08:52→17:05)
--- NOTE | 2023-12-22 12:02 | HO.PM.IMPN ---
Subjective Subjective Date of Service: 12/22/23 Interval History: Offers no acute complaints of shortness of breath , no cough ,decreased oxygen requirement, not on home O2 recent chest x-ray showed atelectasis versus small left infiltrate, no fevers, no chills. Review of Systems All other system reviewed and negative. Physical Exam Vital Signs: Vital Signs: Last Vital Signs Temp 97.4 F 12/22/23 07:13 Pulse 68 12/22/23 10:58 Resp 15 12/22/23 10:58 BP 123/78 12/22/23 07:13 Pulse Ox 94 12/22/23 07:13 O2 Del Method Nasal Cannula 12/22/23 07:13 O2 Flow Rate 1.0 12/22/23 07:13 BMI result Body Mass Index 21.1 Const: Other: General awake alert x3, in no acute distress. Neck supple, no JVD. CVS regular rate rhythm, Respiratory lungs clear to auscultation, no respiratory distress, no wheeze, no rhonchi. Gastrointestinal abdomen soft, non tender, bowel sounds audible,no guarding , no rigidity. Extremities no edema. Neuro non focal Skin no rash Psych appropriate affect Objective Data Active Medications Albuterol/Ipratropium (Albuterol/Iprat 2.5/0.5mg 3 Ml Ampul.Neb) 3 ml INHALE Q4H [facility] Last Admin: 12/22/23 10:58 Dose: 3 ml Documented By: KIRK Amlodipine Besylate (Amlodipine Besylate 5 Mg Tablet) 5 mg G-TUBE DAILY [facility]; Protocol Last Admin: 12/22/23 08:48 Dose: 5 mg Documented By: CATHY Bictegravir/Emtricitabine/Tenofovir (Bictegrav/Emtricit/Tenofov Ala Tablet) 1 tab PO DAILY [facility] Last Admin: 12/22/23 08:48 Dose: 1 tab Documented By: CATHY Brimonidine Tartrate (Brimonidine Tartrate 0.2% Oph 5 Ml Bottle) 1 drop EYE-BOTH BID [facility] Last Admin: 12/22/23 08:50 Dose: 1 drop Documented By: CATHY Calcium Carbonate/Cholecalciferol (Calcium + Vitamin D 250 Mg Tablet) 250 mg PO BID@1200,1800 [facility] Last Admin: 12/22/23 11:16 Dose: Not Given Documented By: CATHY Non-Admin Reason: NPO Clonazepam (Clonazepam 1 Mg Tablet) 1 mg G-TUBE DAILY [facility] Last Admin: 12/22/23 08:48 Dose: 1 mg Documented By: CATHY Fluticasone/Vilanterol (Fluticasone/Vilanterol 200/25 Blst.W.Dev) 1 puff INHALE RDAILY [facility] Last Admin: 12/22/23 07:29 Dose: 1 puff Documented By: KIRK Gabapentin (Gabapentin 600 Mg Tablet) 600 mg G-TUBE TID [facility] Last Admin: 12/22/23 08:48 Dose: 600 mg Documented By: CATHY Heparin Sodium (Porcine) (Heparin Sodium,Porcine 5,000 Unit/Ml Vial) 5,000 unit SUBCUT Q8H [facility] Last Admin: 12/22/23 08:48 Dose: 5,000 unit Documented By: CATHY Azithromycin 500 mg/ Sodium (Chloride) 250 mls @ 125 mls/hr IV Q24H [facility] Last Infusion: 12/22/23 03:00 Dose: Infused Documented By: TRIPP Latanoprost (Latanoprost 0.005 % Ophth Carol 2.5 Ml Drops) 1 drop EYE-BOTH BEDTIME [facility] Last Admin: 12/21/23 20:29 Dose: 1 drop Documented By: TRIPP Melatonin (Melatonin 3 Mg Tablet) 6 mg PO BEDTIME PRN PRN Reason: Insomnia Last Admin: 12/21/23 20:24 Dose: 6 mg Documented By: TRIPP Mirtazapine (Mirtazapine 30 Mg Tablet) 60 mg G-TUBE BEDTIME [facility] Last Admin: 12/21/23 20:24 Dose: 60 mg Documented By: TRIPP Omeprazole (Omeprazole/Na Bicarb Oral Susp 20 Mg/10 Ml Ud Cup) 20 mg G-TUBE BID [facility] Last Admin: 12/22/23 08:48 Dose: 20 mg Documented By: CATHY Prednisone (Prednisone 20 Mg Tablet) 20 mg PO DAILY [facility] Last Admin: 12/22/23 08:48 Dose: 20 mg Documented By: CATHY Risperidone (Risperidone 3 Mg Tablet) 3 mg PO BEDTIME [facility] Last Admin: 12/21/23 20:24 Dose: 3 mg Documented By: ODRISM Sodium Chloride (0.9 % Sodium Chloride Flush 3 Ml Syringe) 3 ml IVFLUSH QSHIFT [facility] Last Admin: 12/22/23 08:48 Dose: 3 ml Documented By: CATHY Timolol Maleate (Timolol Maleate 0.5 % Oph Carol 5 Ml Drbtl) 1 drop EYE-BOTH BID [facility] Last Admin: 12/22/23 08:50 Dose: 1 drop Documented By: CATHY Tramadol HCl (Tramadol Hcl 50 Mg Tablet) 50 mg G-TUBE BID PRN PRN Reason: Pain (Scale Score 7-10) Last Admin: 12/22/23 08:52 Dose: 50 mg Documented By: CATHY Labs 12/19/23 11:56 12/19/23 11:56 Assessment and Plan (1) Acute asthma exacerbation: Status: Acute Plan 58 yo M with HIV viral CD4 627 in september, mild persistent asthma, history HCV, and history empyema, recurrent admissions here with Acute asthma exacerbation with hypoxia. wean oxygen as tolerated, not on home oxygen ,keep O2 sats > 90%. Continue DuoNeb updraft q.4 hours, finished course of IV azithromycin. Continue po Prednisone ,wean gradually. repeat cxr showed left lung base infiltrate versus atelectasis Encourage incentive spirometry, out of bed to chair and ambulation tid. Will obtain home O2 if unable to wean oxygen Intermittent chest pain. Troponin negative. ECG showed no ischemia. Symptomatic treatment , recent upper endoscopy showed finding suggestive of Smith's esophagus , continue on PPI b.i.d. Dehydration. resolved with IVF and fluid through tube feed. Dysphagia s/p G-tube. Tube feed per nutritional recommendation, has been on milkshakes at home. Essential hypertension. Continue amlodipine. Chronic hepatitis-C. stable History of HIV. Undetectable viral load and CD4 627 on September 2023. Repeat CD4 count 219, Contineu HAARTs. Depression and anxiety. Continue risperidone, mirtazapine and clonazepam. History of substance abuse. + Benzo patient on Klonopin at home. DVT prophylaxis: Heparin subQ Code status: Full need for inpatient acute exacerbation of bronchial asthma treatment with supplemental O2, bronchodilator therapy, IV antibiotic therapy. Quality Stroke Does the patient have a stroke diagnosis?: No VTE Prior VTE?: No VTE Risk Level:: Medical - moderate - high VTE Device Contraindication: Treatment Not Indicated VTE Drug Contraindication: N/A - Med Ordered
[2023-12-22] MEDS: Calcium + Vitamin D 250 MG TABLET PO (17:04)
[2023-12-22] MEDS: Butalb/Acetamin/Caff 50/325/40 TABLET 1 TAB PO (19:57)
--- NOTE | 2023-12-22 20:12 | PC.NURSE ---
pt c/o of migraine 9 pain. notified an order for fioricet x1 ordered and given.
[2023-12-22] MEDS: Mirtazapine 30 MG TABLET 60 MG G-TUBE (20:24)
[2023-12-22] MEDS: Latanoprost 0.005 % Ophth Sol 2.5 ML DROPS 1 DROP EYE-BOTH (20:24)
[2023-12-22] MEDS: risperiDONE 3 MG TABLET PO (20:24)
[2023-12-23] MEDS: Heparin Sodium,Porcine 5,000 UNIT/ML VIAL 5000 UNIT SUBCUT ×2 (01:04→08:20)
[2023-12-23 03:27] VITALS: BP 121/79; PULSE 67; RESP 16; TEMP 36.4; O2SAT 93
[2023-12-23 07:31] VITALS: PULSE 67; RESP 16; O2SAT 98
[2023-12-23] MEDS: Fluticasone/Vilanterol 200/25 BLST.W.DEV 1 PUFF INHALE (07:31)
[2023-12-23] MEDS: Albuterol/Iprat 2.5/0.5MG 3 ML AMPUL.NEB INHALE ×2 (07:31→11:03)
[2023-12-23 07:38] VITALS: BP 131/79; PULSE 67; RESP 16; TEMP 36.6; O2SAT 96
[2023-12-23] MEDS: Gabapentin 600 MG TABLET G-TUBE (08:20)
[2023-12-23] MEDS: Bictegrav/Emtricit/Tenofov Ala TABLET 1 TAB PO (08:20)
[2023-12-23] MEDS: clonazePAM 1 MG TABLET G-TUBE (08:20)
[2023-12-23] MEDS: predniSONE 20 MG TABLET PO (08:20)
[2023-12-23] MEDS: amLODIPine Besylate 5 MG TABLET G-TUBE (08:20)
[2023-12-23] MEDS: Omeprazole/Na Bicarb Oral Susp 20 MG/10 ML UD Cup G-TUBE (08:20)
[2023-12-23] MEDS: 0.9 % Sodium Chloride Flush 3 ML SYRINGE IVFLUSH (08:21)
[2023-12-23] MEDS: Brimonidine Tartrate 0.2% Oph 5 ML BOTTLE 1 DROP EYE-BOTH (08:21)
[2023-12-23] MEDS: timoloL maleate 0.5 % Oph Sol 5 ML DRBTL 1 DROP EYE-BOTH (08:22)
[2023-12-23] MEDS: traMADoL HCL 50 MG TABLET G-TUBE (09:19)
[2023-12-23 10:31] VITALS: O2SAT 85; O2SAT 86; O2SAT 87; O2SAT 92; O2SAT 93
[2023-12-23 11:04] VITALS: PULSE 67; RESP 19; O2SAT 93
--- NOTE | 2023-12-23 11:18 | P.DS_ITS ---
DS: Providers Provider Date of Service: 12/23/23 Date of admission: 12/16/23 06:39 Primary care physician: Terese Keenan MD DS: Diagnosis Discharge Diagnosis (1) Acute asthma exacerbation: Status: Acute DS: Summary Hospital Course Hospital Course: History of presenting illness: Date of Service: 12/16/23 Attending physician on admission: Herbie Rao Chief Complaint: Shortness on breath Benjamin Juan David is a Kosovan-speaking 58 years old man with past medical history significant for asthma, HIV compliant with HARRTs (Sep 2023 -HIV viral load undetectable, CD4 627), dysphagia, s/p G-tube placement, chronic hepatitis-C, depression and essential hypertension was brought to the emergency department via ambulance complaining of worsening shortness of breath over the last 3 days associated with productive cough of brownish sputum and chest tightness. He mentioned feeling generalized weak and unwell. He did report suggestive fever and chills. Denies headache or palpitations. He denied any acute gastrointestinal or genitourinary symptoms. In the ED was found to have stable vital signs except for O2 sats denies% on room air. There is no leukocytosis (WBC are at baseline). Mild thrombocytosis 157. Hemoglobin is normal. There are no electrolyte imbalances. Renal function is normal. LFTs are normal. Troponin and BNP are normal. CXR showed nonspecific slightly increased interstitial markings probably associated with asthma, bronchitis, reactive airway disease and atypical viral infections. ED tx: None. Hospital course: 58 yo M with HIV viral CD4 627 in september, mild persistent asthma, history H CV, and history empyema, recurrent admissions here with Acute mild persistent asthma exacerbation with acute hypoxic respiratory failure , admitted to medical floor treated with DuoNeb updraft q.4 hours,IV azithromycin and IV steroids, CTA chest showed no pulmonary embolism but showed Debris in the distal esophagus and left mainstem bronchus, no infiltrate was noted,repeat cxr showed left lung base infiltrate versus atelectasis , patient responded gradually to above treatment, currently ambulating but noted to have persistent hypoxia at rest and with ambulation therefore being discharged home on 1 L of oxygen at rest and 3 L with ambulation he is recommended to continue all home inhalers including DuoNeb 4 times a day and to take 5 more days of by mouth prednisone, patient continued to have intermittent chest discomfort troponins were negative EKG showed no ischemia likely related to esophagitis with prior upper endoscopy showing findings suggestive of Smith's esophagus therefore being discharged home on Prilosec 20 mg daily. Dysphagia s/p G-tube. Continue tube feeds Essential hypertension. Stable blood pressure, Continue amlodipine. Chronic hepatitis-C. stable History of HIV. Undetectable viral load and CD4 627 on September 2023. Repeat CD4 count 219, Contineu HAART treatment. Depression and anxiety. Continue risperidone, mirtazapine and clonazepam. Time Attestation Discharge Coordination Time (in mins): 38 Quality: Safe Use of Opioids Does Pt have an Active Cancer Diagnosis on the Problem List?: No Quality: Stroke Does the patient have a stroke diagnosis?: No Physical Exam Vital Signs: Vital Signs: Last Vital Signs Temp 97.8 F 12/23/23 07:38 Pulse 67 12/23/23 11:04 Resp 19 12/23/23 11:04 BP 131/79 12/23/23 07:38 Pulse Ox 96 12/23/23 07:38 O2 Del Method Nasal Cannula 12/23/23 07:38 O2 Flow Rate 2.0 12/23/23 07:38 BMI result Body Mass Index 21.1 Const: Other: General awake alert x3, in no acute distress. Neck supple, no JVD. CVS regular rate rhythm, Respiratory lungs clear to auscultation, no respiratory distress, no wheeze, no rhonchi. Gastrointestinal abdomen soft, non tender, bowel sounds audible,no guarding , no rigidity. Extremities no edema. Neuro non focal Skin no rash Psych appropriate affect DS: Data Data Completed and Pending Completed studies during hospitalization [Text1]: Procedures Drainage of Left Lung with Drainage Device, Open Approach (12/30/22) Excision of Esophagogastric Junction, Via Natural or Artificial Opening Endoscopic, Diagnostic (07/16/23) Excision of Stomach, Pylorus, Via Natural or Artificial Opening Endoscopic, Diagnostic (07/16/23) Excision of Upper Esophagus, Via Natural or Artificial Opening Endoscopic, Diagnostic (07/16/23) Insertion of Endotracheal Airway into Trachea, Via Natural or Artificial Opening (12/30/22) Insertion of Feeding Device into Stomach, Percutaneous Approach (07/27/23) Insertion of Infusion Device into Superior Vena Cava, Percutaneous Approach (12/30/22) Insertion of Infusion Device into Upper Vein, Percutaneous Approach (07/16/23) Introduction of Nutritional Substance into Upper GI, Via Natural or Artificial Opening (07/27/23) Introduction of Vasopressor into Central Vein, Percutaneous Approach (12/30/22) Release Left Lung, Open Approach (12/30/22) Reposition Left Tibia with Internal Fixation Device, Open Approach (02/12/22) Respiratory Ventilation, 24-96 Consecutive Hours (12/30/22) Ultrasonography of Superior Vena Cava, Guidance (12/30/22) Discharge Plan Discharge Anticipated Discharge Date/Time: 12/23/23 11:17 Patient Disposition: Home Health Service Discharge Diagnosis: Acute hypoxic respiratory failure due to acute mild persist asthma exacerbation Referrals: Terese Rivera MD [Primary Care Provider] - 1 Week Discharge Medications: New Konvomep 2-84 mg/mL Suspension For Reconstitution 10 ml G-tube DAILY Qty: 150 0RF prednisone 10 mg tablet 10 mg feeding tube DAILY Qty: 5 0RF Continued latanoprost 0.005 % drops 1 drp ophthalmic (eye) BEDTIME albuterol sulfate 90 mcg/actuation HFA aerosol inhaler 2 puff inhalation Q6H PRN (Reason: wheezing) gabapentin 600 mg tablet 600 mg feeding tube TID Qty: 20 0RF clonazepam 1 mg tablet 1 mg feeding tube DAILY Qty: 10 0RF amlodipine 5 mg tablet 5 mg feeding tube DAILY Qty: 30 0RF mirtazapine 30 mg tablet 60 mg feeding tube BEDTIME Qty: 20 0RF Biktarvy 50-200-25 mg tablet 1 tab PO DAILY Qty: 14 0RF Rx Instructions: Ok to crush and give via feeding tube tramadol 50 mg tablet 50 mg feeding tube BID PRN (Reason: Pain (Scale Score 7-10)) risperidone 3 mg tablet 3 mg feeding tube BEDTIME diphenhydramine HCl [Banophen] 25 mg tablet 50 mg feeding tube BEDTIME ferrous gluconate 324 mg (38 mg iron) tablet 324 mg feeding tube BID calcium carbonate-vitamin D3 600 mg-20 mcg (800 unit) tablet 1 tab feeding tube BID@1200,1800 fluticasone propion-salmeterol [Advair HFA] 230-21 mcg/actuation HFA aerosol inhaler 2 puff inhalation BID brimonidine-timolol 0.2-0.5 % drops 1 drp ophthalmic (eye) BID Discharge Orders: Discharge Order (Routine); Ordered 12/23/23 Ordered By: Boom Fermin Diet: G-tube feedings Activity on Discharge: As tolerated Stand Alone Forms: Patient Portal Discharge page Print Language: Kosovan Care Plan Goals: Acute asthma exacerbation with acute hypoxic respiratory failure Continue oxygen 1 L at rest and 3 L with ambulation Continue all home inhalers Take prednisone 10 mg daily for 5 more days Use DuoNeb updraft treatment 4 times a day Take Prilosec 20 mg daily Continue G-tube feedings Continue ambulation as tolerated /incentive spirometry q.2 hours as needed Health Concerns: Continue all home medications as before Plan of Treatment: Outpatient follow-up with primary care physician and Infectious Disease Assessment: As above
--- NOTE | 2023-12-23 13:21 | MHC.CM.PN ---
Addendum entered by Emily Foster 12/23/23 14:28: CORRECTION: [facility], [facility] MACHINE IS [facility]===Y Addendum entered by Emily Foster 12/23/23 14:13: DCS ALSO FAXED TO [facility] AT [phone] Original Note: PT CLEARED TO DC HOME TODAY WITH RESUMPTION OF HIS [facility] AND [employer] PER [facility], PT IS DUE FOR A REFILL OF HIS TUBE FEED SUPPLIES CM MET WITH PT WHO CONFIRMS HE HAS PLENTY AT HOME AND HE UNDERSTANDS THEY WILL NOT BRING HIS REFILL UNTIL TOMORROW AT THE EARLIEST PT IS AWARE HE WILL DC ON NEW OXYGEN AND MUST CALL THE O2 COMPANY SOON HE GETS HOME SO THEY CAN DELIVER HIS SUPPLIES. HE HAS HIS LOANER TANK FOR TRANSPORT PT CONFIRMS HE REQUIRES BLS TRANSPORT WHICH WAS BOOKED FOR 1315 HOURS DCS SENT TO [facility] AND [facility] VIA [employer]
== END 2023-12-23 13:18 | disposition home health service (06) | DRG 202 ==
LOC: HO.ED 12-16 01:35 → HO.EDOVER 12-16 06:42 → HO.S3 12-17 11:36
PROVIDERS: Internal Medicine; Admitting Provider Internal Medicine; Emergency Provider Emergency Medicine Emergency Medical Services; PCP Student in an Organized Health Care Education/Training Program; Visit Provider Hospitalist
DX: J45.31 Mild persistent asthma with (acute) exacerbation (principal); J96.01 Acute respiratory failure with hypoxia; Z93.1 Gastrostomy status; R13.10 Dysphagia, unspecified; K22.70 Barrett's esophagus without dysplasia; B18.2 Chronic viral hepatitis C; E86.0 Dehydration; Z21 Asymptomatic human immunodeficiency virus [HIV] infection status; F41.9 Anxiety disorder, unspecified; F32.9 Major depressive disorder, single episode, unspecified; Z20.822 Contact with and (suspected) exposure to COVID-19; Z87.891 Personal history of nicotine dependence; Z79.899 Other long term (current) drug therapy
CPT/HCPCS: 0241U; 36415; 71045; 71275; 80048; 80076; 80307; 81001; 82803; 83605; 83735; 83880; 84100; 84484; 85025; 85027; 86359; 86360; 87040; 93005; 94640; 99285; J0456; J1644; J1885; J2930; J7120; Q9967

== ENCOUNTER → 2023-12-15 17:13 | Outpatient (BNV) | payer OTHER, SELFPAY | PROVIDERS: Admitting Provider Internal Medicine; Emergency Provider Emergency Medicine Emergency Medical Services; Visit Provider Internal Medicine Cardiovascular Disease | DX: R41.82 Altered mental status, unspecified (principal) | CPT/HCPCS: 93010 ==

== ENCOUNTER → 2023-12-15 17:26 | Outpatient (BNV) | payer OTHER, SELFPAY | PROVIDERS: Emergency Provider Emergency Medicine Emergency Medical Services; Visit Provider Internal Medicine | DX: J45.51 Severe persistent asthma with (acute) exacerbation (principal) | CPT/HCPCS: 99223; 99232; 99233; 99239; 99499 ==

== ENCOUNTER 2024-01-10 06:37 | Emergency (ER) | payer OTHER, SELFPAY ==
--- NOTE | ~2024-01-10 | XR_ITS ---
EXAMINATION: XR HIP, RIGHT CLINICAL INFORMATION: Right hip pain. COMPARISON: None available. TECHNIQUE: Two views of the right hip. FINDINGS: Sacroiliac joints and pubic symphysis are intact. The sacrum is partially obscured by overlying bowel contents. The hip joints appear symmetric. Normal alignment of the right hip. No significant cartilage space loss. No displaced fracture or dislocation. XR/XR hip RT min 2V IMPRESSION: No acute abnormality.
--- NOTE | ~2024-01-10 | CT_ITS ---
EXAMINATION: CT CERVICAL SPINE WITHOUT CONTRAST CLINICAL INFORMATION: Neck pain right-sided COMPARISON: None available. TECHNIQUE: Thin section axial imaging with sagittal coronal reformats. This CT examination was performed using dose optimization techniques as appropriate, variously including the following: *Automated exposure control *Adjustment of mA and/or kV according to patient size (this includes techniques or standardized protocols for targeted exams where dose is matched to indication/reason for exam; i.e. extremities or head) *Use of iterative reconstruction technique DLP: 303 mGy-cm FINDINGS: There is advanced narrowing of the C3-C4 disc space with posterior spurring. No fracture or destructive process. No encroachment on the spinal canal. Prevertebral soft tissues are normal. There is retained secretions within the trachea. The lung apices are clear. CT/CT cervical spine wo IV con IMPRESSION: Degenerative change noted. No fracture. Fleischner guidelines were followed.
--- NOTE | ~2024-01-10 | CT_ITS ---
EXAMINATION: CT CHEST WITHOUT CONTRAST CLINICAL INFORMATION: Weakness concern of aspiration COMPARISON: CT angiogram from 12/15/2023 TECHNIQUE: Multidetector volumetric CT imaging of the chest was done. Axial MIP volume rendering provided. Sagittal and coronal reformatted images were obtained. This CT examination was performed using dose optimization techniques as appropriate, variously including the following: *Automated exposure control *Adjustment of mA and/or kV according to patient size (this includes techniques or standardized protocols for targeted exams where dose is matched to indication/reason for exam; i.e. 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 Consider pneumonia. There is mild peribronchial cuffing: The left as well. MEDIASTINUM: The mediastinum is normal. CORONARY ARTERY CALCIFICATION: Mild PLEURA: There is no pleural effusion. No pleural mass or thickening. AXILLA: No lymphadenopathy. UPPER ABDOMEN: Punctate calcifications most likely vascular seen in both kidneys. Residual contrast seen through the colon. Liver, visualized pancreas are unremarkable. OSSEOUS STRUCTURES: Unremarkable. CT/CT chest wo IV con IMPRESSION: Right lower lobe pneumonia. Fleischner guidelines were followed.
--- NOTE | ~2024-01-10 | XR_ITS ---
EXAMINATION: XR CHEST CLINICAL INFORMATION: Weakness and difficulty breathing COMPARISON: 12/19/2023 TECHNIQUE: Frontal view of the chest was obtained. FINDINGS: Minor atelectasis at the lung bases, without significant change. Upper lungs clear. Heart size normal with normal caliber pulmonary vessels. Surgical clips are seen adjacent to the left hilum. XR/XR chest 1V IMPRESSION: Stable atelectasis.
[2024-01-10 06:44] VITALS: BP 112/74; BP 97/73; PULSE 85; PULSE 95; RESP 16; TEMP 36.6; O2SAT 95; O2SAT 96; BMI 14.8
--- NOTE | 2024-01-10 06:52 | ECG_ITS ---
Test Reason : WEAKNESS Blood Pressure : / mmHG Vent. Rate : 078 BPM Atrial Rate : 078 BPM P-R Int : 162 ms QRS Dur : 102 ms QT Int : 394 ms P-R-T Axes : 079 076 046 degrees QTc Int : 449 ms Normal sinus rhythm Incomplete right bundle branch block Borderline ECG When compared with ECG of 15-DEC-2023 18:09, No significant change was found Referred By: Colleen Roa Electronically Signed By:TALIB LÓPEZ
[2024-01-10] MEDS: 0.9 % Sodium Chloride 1,000 ML 100 ML IVCONT (07:33)
[2024-01-10 07:50] LABS: MANUAL DIFF FLAG NO
[2024-01-10 07:52] LABS: Basophils Percent Auto 0.4 % (0-2); Eosinophils Absolute Auto 0.1 X10*3/uL (0.0-0.4); Eosinophils Percent Auto 1.3 % (0-4); Hematocrit 43.1 % (42.0-52.0); Imm Gran Abs Auto 0.04 X10*3/uL (0.00-0.03); Imm Gran Pct Auto 0.4 % (0.0-0.4); Lymphocytes Absolute Auto 1.2 X10*3/uL (1.2-4.9); Lymphocytes Percent Auto 13.3 % (20-40); Mean Corpuscular HGB Conc 34.8 g/dl (31.0-36.0); Mean Corpuscular Hemoglobin 33.6 pg (27.0-33.0); Mean Corpuscular Volume 96.6 fL (80.0-98.0); Mean Platelet Volume 11.8 fL (9.4-12.4); Monocytes Absolute Auto 0.6 X10*3/uL (0.1-1.2); Monocytes Percent Auto 6.9 % (2-11); Neutrophils Percent Auto 77.7 % (45-73); Platelet Count 169 X10*3/uL (160-400); Red Blood Count 4.46 X10*6/uL (4.60-5.80); Red Cell Distribution Width 12.6 % (11.0-16.0)
--- NOTE | 2024-01-10 07:54 | PC.NURSE ---
22G IV placed L thumb/hand, wrapped. labs obtained. NS running at 100ml/hr. supervisor plastic sheets applied, vss. cleaned and repositioned in bed, condom cath applied to get urine sample.
[2024-01-10 08:07] LABS: Alanine Aminotransferase 43 U/L (0-40); Albumin Level 4.1 g/dL (3.5-5.0); Alkaline Phosphatase 67 U/L (39-117); Anion Gap 18 (12-20); Aspartate Amino Transferase 27 U/L (5-37); Bilirubin Total 0.6 mg/dL (0.0-1.0); Blood Urea Nitrogen 13 mg/dL (9-16); Calcium 9.6 mg/dL (8.4-10.2); Carbon Dioxide 23 mmol/L (22-29); Chloride 103 mmol/L (96-108); Creatinine Clr Calc Pharmacy 55.6; Estimated Glomerular Filt Rate > 60; Glucose Random 99 mg/dL (60-115); Lipase 8 U/L (8-78); Sodium 140 mmol/L (135-145); Total Protein 7.6 g/dL (6.5-8.0)
--- NOTE | 2024-01-10 08:10 | ED_ITS ---
HPI - Weakness General Chief complaint: Weakness Stated complaint: Weakness Time Seen by Provider: 01/10/24 07:03 Source: patient and old records reviewed Mode of arrival: EMS Limitations: no limitations History of Present Illness HPI Narrative: 58 yo male with PMH of asthma, pneumonia, dysphagia and feeding tube use, HIV compliant and undetectable viral load, depression, chronic hepatitis, HTN here with c/o not feeling well x 2 days - notes he can barely get up and he has pain in his R neck and R hip. It hurts to move and walk. He states he is very tired. He denies fever. Complaint: generalized weakness Onset (ago): day(s) (2) Duration: constant Location: generalized Migration: none Severity: moderate Relieving factors: none Exacerbating factors: movement and exertion Context: recent illness Associated symptoms: loss of appetite and myalgias Related Data Home Medications ?Medication ?Instructions ?Recorded ?Confirmed latanoprost 0.005 % eye drops 1 drp ophthalmic (eye) BEDTIME 12/30/22 12/16/23 albuterol sulfate 90 mcg/actuation 2 puff inhalation Q6H PRN wheezing 02/12/23 12/16/23 aerosol inhaler brimonidine 0.2 %-timolol 0.5 % 1 drp ophthalmic (eye) BID 06/01/23 12/16/23 eye drops fluticasone propionate 230 2 puff inhalation BID 06/01/23 12/16/23 mcg-salmeterol 21 mcg/actuation HFA inhaler (Advair HFA) calcium carbonate 600 mg-vitamin 1 tab feeding tube BID@1200,1800 12/16/23 12/16/23 D3 20 mcg (800 unit) tablet diphenhydramine HCl 25 mg tablet 50 mg feeding tube BEDTIME 12/16/23 12/16/23 (Banophen) ferrous gluconate 324 mg (38 mg 324 mg feeding tube BID 12/16/23 12/16/23 iron) tablet risperidone 3 mg tablet 3 mg feeding tube BEDTIME 12/16/23 12/16/23 tramadol 50 mg tablet 50 mg feeding tube BID PRN Pain 12/16/23 12/16/23 (Scale Score 7-10) Previous Rx's ?Medication ?Instructions ?Recorded amlodipine 5 mg tablet 5 mg feeding tube DAILY #30 tabs 11/23/23 bictegravir 50 mg-emtricitabine 1 tab PO DAILY #14 tabs 08/02/23 200 mg-tenofovir alafenam 25 mg tablet (Biktarvy) clonazepam 1 mg tablet 1 mg feeding tube DAILY #10 tabs 08/02/23 gabapentin 600 mg tablet 600 mg feeding tube TID #20 tabs 08/02/23 mirtazapine 30 mg tablet 60 mg (2 x 30 mg) feeding tube 08/02/23 BEDTIME #20 tabs omeprazole 2 mg-sodium bicarbonate 10 ml G-tube DAILY #150 mL 12/23/23 84 mg/mL oral suspension (Konvomep) prednisone 10 mg tablet 10 mg feeding tube DAILY #5 tabs 12/23/23 Allergies Allergy/AdvReac Type Severity Reaction Status Date / Time Seasonal Allergies Allergy Intermediate Eye Verified 01/10/24 06:45 Drainage codeine Allergy Mild Rash Verified 01/10/24 06:45 [From Tylenol-Codeine #3] levofloxacin [From Levaquin] Allergy Mild Rash Verified 01/10/24 06:45 metoclopramide [From Reglan] Allergy Mild Rash Verified 01/10/24 06:45 acetaminophen Allergy Unknown Unknown Verified 01/10/24 06:45 [Tylenol-Codeine #3] Penicillins [PENICILLINS] Allergy Unknown Rash Verified 01/10/24 06:45 ibuprofen [From Motrin] AdvReac Unknown Reflux Verified 01/10/24 06:45 Review of Systems 2 Review of Systems: Constitutional : No Fever, No Chills, pos Fatigue ENT/Mouth : No sore throat, No Rhinorrhea Eyes: No Eye Pain, No Swelling, No Redness Cardiovascular : No Chest Pain, No SOB, No Dyspnea on Exertion Respiratory : No Cough, No Sputum Gastrointestinal : No Nausea, No Vomiting, No Diarrhea, No abdominal Pain Genitourinary : No Dysuria, No Urinary Frequency, No Hematuria, Musculoskeletal : pos joint pain, pos Myalgias, No Joint Swelling Skin : No Skin Lesions, No rash Neuro : pos Weakness, No Numbness, No Dizziness, no Headache Psych : No Anxiety/Panic, No Depression Heme/Lymph: No Bruising, No Bleeding,No Lymphadenopathy Endocrine : No Polyuria, No Polydipsia All other systems reviewed and are negative [facility] Past Medical History Attestation statement: The following information was validated with the patient. Source: old records reviewed Medical History Asthma Dysphagia Adult failure to thrive Adult failure to thrive Multiple rib fractures History of empyema of pleura (01/05/23) Hypertension Closed fracture of leg Hepatitis C Kidney stones Pleuritic chest pain Pneumonia Substance abuse Hemorrhoids Depression HIV (human immunodeficiency virus infection) Asthma Surgical History H/O hemorrhoidectomy Social History Social History Household Members: None Household Members Other:: sister Housing: Apartment Do you presently have visiting nurse or other home services: Yes Alcohol intake: never Patient Tobacco Use Status: Former Tobacco user Tobacco use type: Cigarette e-Cigarette/Vaping Use: Never Used Second Hand Smoke Exposure: No Substance Use Type: Crack/Cocaine Advance Directives: Yes Advance Directives on File: Yes Advance Directives Date on File: 04/25/21 Do you have a plan to hurt others: No Plan service: No Current occupational status: disabled Physical Exam 2 Vital Signs: Vital Signs: Last Vital Signs Temp 97.7 F 01/10/24 12:08 Pulse 64 01/10/24 14:46 Resp 14 01/10/24 14:46 BP 109/59 L 01/10/24 14:46 Pulse Ox 99 01/10/24 14:46 O2 Del Method Room Air 01/10/24 14:46 O2 Flow Rate 3 01/10/24 12:08 Oxygen Flow Rate 2 01/10/24 06:44 BMI result Body Mass Index 14.8 Appearance: Alert. Oriented X3. No acute distress. Frail thin ill appearing Eyes: Pupils equal, round and reactive to light. ENT: Pharynx dry MM Neck: Normal inspection. ttp along R neck no mass or rash seen CVS: Normal heart rate and rhythm. Pulses normal. Respiratory: No respiratory distress. Breath sounds coarse junky cough cannot clear, diminished bases Abdomen: Soft and nontender. Skin: Skin warm and dry. pale skin color. poor skin turgor. Extremities: No lower extremity edema. R hip reports ttp Neuro: Oriented X 3. No motor deficit. No sensory deficit. Course Course Course Narrative: + CT scan for RLL pneumonia at this time infection suspected IV antibiotic ordered given recent admission will start on ceftriaxone and flagyl will hold vancomcyin not floridly septic will send off nasal swab likely aspiration 344pm Medications Administered Generic Name Dose Route Start Last Admin Trade Name Akira PRN Reason Stop Dose Admin Sodium Chloride 1,000 mls @ 100 mls/hr 01/10/24 07:15 01/10/24 07:33 Ns IVCONT 100 mls/hr .Q10H MICHAEL Administration Discontinued Medications Generic Name Dose Route Start Last Admin Trade Name Akira PRN Reason Stop Dose Admin Morphine Sulfate 5 mg 01/10/24 14:13 01/10/24 14:48 Morphine Sulfate Oral Carol 10 Mg/5 Ml Solution G-TUBE 01/10/24 14:14 5 mg ONCE ONE Administration Medical Decision Making Medical Decision Making [facility] Narrative: 58 yo male with PMH of asthma, pneumonia, dysphagia and feeding tube use, HIV compliant and undetectable viral load, depression, chronic hepatitis, HTN here with c/o weakness, R hip and R neck pain denies trauma he is very frail appearing and has been ill for a whle now at this time labs, xray, CT scan for cervical spine he is neurologically and has pulses intact - IVF ordered. Possible viral syndrome, fractures, strain, rhabdo. Differential Diagnosis Differential Diagnoses: The differential diagnosis associated with the presentation includes FTT, viral syndrome, fracture Admission/Observation Consideration of admission/observation: Escalation of care including admission/observation considered admit given weakness, aspiration FTT Consult Healthcare Provider Management of the patient was discussed with: Hospitalist (will admit) Lab Data [facility] Lab Attestation statement: I reviewed the patient's lab results. 01/10/24 07:43 01/10/24 07:43 Labs: Lab Results 01/10/24 01/10/24 01/10/24 Range/Units 07:43 09:21 10:59 WBC 9.0 (4.8-10.8) X10*3/uL RBC 4.46 L (4.60-5.80) X10*6/uL Hgb 15.0 (14.0-18.0) g/dl Hct 43.1 (42.0-52.0) % MCV 96.6 (80.0-98.0) fL MCH 33.6 H (27.0-33.0) pg MCHC 34.8 (31.0-36.0) g/dl RDW 12.6 (11.0-16.0) % Plt Count 169 (160-400) X10*3/uL MPV 11.8 (9.4-12.4) fL Immature Gran % (Auto) 0.4 (0.0-0.4) % Neut % (Auto) 77.7 H (45-73) % Lymph % (Auto) 13.3 L (20-40) % [place] % (Auto) 6.9 (2-11) % Eos % (Auto) 1.3 (0-4) % Baso % (Auto) 0.4 (0-2) % Lymph # (Auto) 1.2 (1.2-4.9) X10*3/uL [place] # (Auto) 0.6 (0.1-1.2) X10*3/uL Eos # (Auto) 0.1 (0.0-0.4) X10*3/uL Baso # (Auto) 0.0 (0.0-0.2) X10*3/uL Abs Immat Gran (auto) 0.04 H (0.00-0.03) X10*3/uL Absolute Neuts (auto) 7.0 (2.0-8.3) x10*3/uL Absolute Nucleated RBC 0.000 (0.0-0.012) X10*3/uL Nucleated RBC % (auto) 0.0 (0.0-0.2) /100WBC Sodium 140 (135-145) mmol/L Potassium 4.0 (3.3-5.1) mmol/L Chloride 103 (96-108) mmol/L Carbon Dioxide 23 (22-29) mmol/L Anion Gap 18 (12-20) BUN 13 (9-16) mg/dL Creatinine 0.97 (0.5-1.4) mg/dL Estim Creat Clear Calc 55.6 Estimated GFR > 60 Random Glucose 99 (60-115) mg/dL Lactic Acid (0.5-2.0) mmol/L Calcium 9.6 D (8.4-10.2) mg/dL Total Bilirubin 0.6 (0.0-1.0) mg/dL AST 27 (5-37) U/L ALT 43 H (0-40) U/L Alkaline Phosphatase 67 (39-117) U/L Total Creatine Kinase 106 (38-174) U/L Troponin I High Sens < 2.7 (<3.5-35.0) ng/L Total Protein 7.6 (6.5-8.0) g/dL Albumin 4.1 (3.5-5.0) g/dL Lipase 8 (8-78) U/L Urine Color Yellow Urine Appearance Clear Urine pH 6.0 (5.0-9.0) Ur Specific [place] 1.015 (1.005-1.025) Urine Protein Negative (Neg-Trace) mg/dL Urine Glucose (UA) Negative (Negative) mg/dL Urine Ketones 40 (Negative) mg/dL Urine Blood Negative (Negative) Urine Nitrite Negative (Negative) Ur Leukocyte Esterase Negative (Negative) Influenza Type A (PCR) NEGATIVE (Negative) Influenza Type B (PCR) NEGATIVE (Negative) RSV RNA Qual (PCR) NEGATIVE (Negative) SARS-CoV-2 RNA (RT-PCR) NEGATIVE (Negative) 01/10/24 Range/Units 13:19 WBC (4.8-10.8) X10*3/uL RBC (4.60-5.80) X10*6/uL Hgb (14.0-18.0) g/dl Hct (42.0-52.0) % MCV (80.0-98.0) fL MCH (27.0-33.0) pg MCHC (31.0-36.0) g/dl RDW (11.0-16.0) % Plt Count (160-400) X10*3/uL MPV (9.4-12.4) fL Immature Gran % (Auto) (0.0-0.4) % Neut % (Auto) (45-73) % Lymph % (Auto) (20-40) % [place] % (Auto) (2-11) % Eos % (Auto) (0-4) % Baso % (Auto) (0-2) % Lymph # (Auto) (1.2-4.9) X10*3/uL [place] # (Auto) (0.1-1.2) X10*3/uL Eos # (Auto) (0.0-0.4) X10*3/uL Baso # (Auto) (0.0-0.2) X10*3/uL Abs Immat Gran (auto) (0.00-0.03) X10*3/uL Absolute Neuts (auto) (2.0-8.3) x10*3/uL Absolute Nucleated RBC (0.0-0.012) X10*3/uL Nucleated RBC % (auto) (0.0-0.2) /100WBC Sodium (135-145) mmol/L Potassium (3.3-5.1) mmol/L Chloride (96-108) mmol/L Carbon Dioxide (22-29) mmol/L Anion Gap (12-20) BUN (9-16) mg/dL Creatinine (0.5-1.4) mg/dL Estim Creat Clear Calc Estimated GFR Random Glucose (60-115) mg/dL Lactic Acid 0.7 (0.5-2.0) mmol/L Calcium (8.4-10.2) mg/dL Total Bilirubin (0.0-1.0) mg/dL AST (5-37) U/L ALT (0-40) U/L Alkaline Phosphatase (39-117) U/L Total Creatine Kinase (38-174) U/L Troponin I High Sens (<3.5-35.0) ng/L Total Protein (6.5-8.0) g/dL Albumin (3.5-5.0) g/dL Lipase (8-78) U/L Urine Color Urine Appearance Urine pH (5.0-9.0) Ur Specific [place] (1.005-1.025) Urine Protein (Neg-Trace) mg/dL Urine Glucose (UA) (Negative) mg/dL Urine Ketones (Negative) mg/dL Urine Blood (Negative) Urine Nitrite (Negative) Ur Leukocyte Esterase (Negative) Influenza Type A (PCR) (Negative) Influenza Type B (PCR) (Negative) RSV RNA Qual (PCR) (Negative) SARS-CoV-2 RNA (RT-PCR) (Negative) Independent Interpretation I performed an independent interpretation of an: EKG, Plain X-Ray (normal per rads ?RLLL pneumonia will order CT chest) and CT Scan (RLL opacity) Interpretation: Rate: 78 Rhythm: NSR [place]: normal Normal P waves. Normal JONI. incomplete RBBB ST T wave : inverted t waves V1-V2, no ANA qTC: 449 prior studies: no change from prior The study has been interpreted contemporaneously by me. . Radiology Impression Discussion of test interpretation with radiology: I have reviewed the radiologist's reading. Independent Historian Clinical information obtained from an independent historian. History obtained from or confirmed by: EMS External Record Review External record reviewed: Inpatient record Discharge Plan Discharge Clinical Impression: Adult failure to thrive Arthralgia Qualifiers: Joint pain location: hip Laterality: right Qualified Code(s): M25.551 - Pain in right hip Pneumonia Qualifiers: Pneumonia type: due to unspecified organism Laterality: right Lung location: l ower lobe of lung Qualified Code(s): J18.9 - Pneumonia, unspecified organism Patient Disposition: Admitted As Inpatient Print Language: Icelandic
[2024-01-10 08:16] LABS: Troponin-I High Sensitivity < 2.7 ng/L (<3.5-35.0)
[2024-01-10 08:43] VITALS: BP 115/75; PULSE 66; RESP 16; TEMP 36.4; O2SAT 98
[2024-01-10 10:17] LABS: Influenza A PCR NEGATIVE (Negative); Influenza B PCR NEGATIVE (Negative); Resp Syncy Virus RNA Qual PCR NEGATIVE (Negative); SARS COV2 PCR INHOUSE NEGATIVE (Negative)
[2024-01-10 10:18] VITALS: BP 101/63; PULSE 66; RESP 14; TEMP 36.5; O2SAT 97
[2024-01-10 11:18] LABS: Appearance Urine Clear; Color Urine Yellow; Glucose Urine UA Negative (Negative); Leukocyte Esterase Urine Negative (Negative); Nitrite Urine Negative (Negative); Specific Gravity - Urine 1.015 (1.005-1.025); Urine Blood Negative (Negative); Urine Ketones 40 mg/dL (Negative); Urine Protein Negative (Neg-Trace)
[2024-01-10 12:08] VITALS: BP 108/65; PULSE 67; RESP 12; TEMP 36.5; O2SAT 97
[2024-01-10 13:35] LABS: Lactic Acid 0.7 mmol/L (0.5-2.0)
[2024-01-10 14:46] VITALS: BP 109/59; PULSE 64; RESP 14; O2SAT 99
[2024-01-10] MEDS: Morphine Sulfate Oral Sol 10 MG/5 ML SOLUTION 5 MG G-TUBE (14:48)
[2024-01-10] MEDS: cefTRIAXone sodium 1 GM in 0.9 % Sodium Chloride 50 ML IV (16:00)
[2024-01-10 16:10] VITALS: BP 111/62; PULSE 61; RESP 15; O2SAT 99
--- NOTE | 2024-01-10 16:26 | PHA.MEDREC ---
Pharmacy Consult ? Medication Reconciliation Pharmacy has completed the medication reconciliation. Received list from [facility]. Antolin GamboaD
[2024-01-10] MEDS: metroNIDAZOLE/NS 500 MG/100 ML PIGGYBACK 100 MG IV (16:41)
--- NOTE | 2024-01-10 17:10 | MHC.CM.ED ---
Per previousCM, the patient is active with [facility], [employer] for home oxygen, [facility] for tube feedings and has [employer] services with [facility]. HCP on file.
== END 2024-01-10 21:48 | disposition home or self-care (01) ==
PROVIDERS: Physician Assistant; Emergency Provider Emergency Medicine
DX: J18.9 Pneumonia, unspecified organism (principal); R53.1 Weakness; M54.2 Cervicalgia; M25.551 Pain in right hip; I45.10 Unspecified right bundle-branch block; Z87.891 Personal history of nicotine dependence; Z03.818 Encounter for observation for suspected exposure to other biological agents ruled out
CPT/HCPCS: 0241U; 36415; 71045; 71250; 72125; 73502; 80053; 81003; 82550; 83605; 83690; 84484; 85025; 87040; 93005; 96365; 96367; 99284; 99285; J0696; J1836

== ENCOUNTER → 2024-01-10 06:52 | Outpatient (BNV) | payer OTHER, SELFPAY | PROVIDERS: Emergency Provider Emergency Medicine; Visit Provider Internal Medicine | DX: R53.1 Weakness (principal) | CPT/HCPCS: 93010 ==

== ENCOUNTER 2024-02-15 18:19 | Emergency (ER) | payer OTHER, SELFPAY ==
--- NOTE | ~2024-02-15 | CT_ITS ---
EXAMINATION: CT CHEST, ABDOMEN AND PELVIS WITHOUT CONTRAST. CLINICAL INFORMATION: Chest pain, shortness of breath, left flank pain. COMPARISON: CT chest 01/10/2024. CT abdomen/pelvis 01/03/2023. TECHNIQUE: Multidetector volumetric imaging was performed from the thoracic inlet through the pubic symphysis without IV contrast. Sagittal and coronal reformatted images were obtained on the technologist's workstation. This CT examination was performed using dose optimization techniques as appropriate, variously including the following: *Automated exposure control *Adjustment of mA and/or kV according to patient size (this includes techniques or standardized protocols for targeted exams where dose is matched to indication/reason for exam; i.e. extremities or head) *Use of iterative reconstruction technique DLP: 418 mGy-cm FINDINGS: Limited noncontrast examination. CHEST: Lung: Evaluation is limited due to respiratory motion. No dense consolidation. Dependent subsegmental atelectasis and/or scarring. Layering intraluminal secretions are noted in the upper trachea, ciro and left mainstem bronchi. Focal mild bronchiectasis and architectural distortion in the superior aspect of the right lower lobe (7:156). Minimal groundglass attenuation of the lung parenchyma in the right apex (7:53). Few bilateral up to 3 mm solid pulmonary nodules, for instance in the right lower lobe images 256 and 228 series 7. Very subtle focal groundglass nodule in the right lower lobe measuring 8 mm image 178 series 7. Mediastinum: Cardiomegaly. No pericardial effusion. No mediastinal lymphadenopathy. Evaluation of the hilar structures is limited in the absence of IV contrast. Normal appearance of the thyroid gland. Pleura: No pleural effusion. No pneumothorax. Chest Wall/Axilla: No lymphadenopathy by size criteria. Osseous structures: Stable multilevel vertebral body height loss. Thoracic spondylosis. Unchanged deformities of the left seventh and eighth ribs with overlying metallic densities along the posterior aspect of these ribs. No acute osseous findings. ABDOMEN/PELVIS: Peritoneal Space: No free air or free fluid. Liver, Gallbladder, Biliary Tree: The liver is normal in size, shape, and attenuation. No focal hepatic lesion or biliary ductal dilatation is present. The gallbladder is unremarkable with no evidence of radiopaque gallstones, gallbladder wall thickening, or obvious pericholecystic inflammatory changes. Pancreas: Unremarkable. Spleen: Unremarkable. Adrenal Glands: Mild asymmetric fullness of the left adrenal gland is unchanged. Kidneys and Ureters: Multiple bilateral nonobstructive renal calculi measuring up to 3 mm. No hydronephrosis. No perinephric fat stranding. Bladder: Punctate calcification abutting the left posterior bladder wall (11:65). Gastrointestinal Tract: Gastrostomy tube. The stomach and the small bowel are nondilated. Normal appendix. Mild colonic diverticulosis without pericolonic inflammatory changes. No evidence of bowel obstruction. Abdominal Wall: No significant hernia is appreciated. Lymphovascular Structures: No lymphadenopathy by size criteria. Normal caliber abdominal aorta. Pelvic Viscera: Unremarkable. Osseous Structures: No acute osseous findings. CT/CT abdomen pelvis wo IV con IMPRESSION: 1. No focal consolidation or significant groundglass disease. Intraluminal secretions in the trachea and left mainstem bronchi that could be related with mucous secretions or aspirated material and that could predispose to aspiration. 2. Few bilateral groundglass and solid pulmonary nodules measuring up to 8 mm. Following Fleischner guidelines, follow-up CT chest in 3-6 months is recommended. 3. Nonobstructive bilateral renal calculi. 4. Punctate calcification abutting the left posterior bladder wall that could be related with a recently passed stone. Recommend attention on follow-up in future examinations to ensure the absence of underlying mural lesions. 5. Diverticulosis but no evidence of acute diverticulitis.
[2024-02-15 18:34] VITALS: BP 122/72; PULSE 55; O2SAT 98
[2024-02-15 19:25] VITALS: BP 117/71; PULSE 50; RESP 16; TEMP 37.4; O2SAT 98; BMI 19.4
--- NOTE | 2024-02-15 19:29 | ECG_ITS ---
Test Reason : CHESTB PAIN Blood Pressure : / mmHG Vent. Rate : 045 BPM Atrial Rate : 045 BPM P-R Int : 174 ms QRS Dur : 106 ms QT Int : 460 ms P-R-T Axes : 079 069 060 degrees QTc Int : 397 ms Sinus bradycardia Incomplete right bundle branch block Nonspecific ST abnormality Abnormal ECG When compared with ECG of 10-JAN-2024 07:13, Vent. rate has decreased BY 33 BPM QT has shortened Referred By: Generic ED Physician Electronically Signed By:ZHANG OCHOA MD
--- NOTE | 2024-02-15 19:44 | ED_ITS ---
HPI - General Adult General Chief complaint: General Medical Stated complaint: neck and back pain x2 days Time Seen by Provider: 02/15/24 19:44 Source: patient, RN notes reviewed and old records reviewed Limitations: no limitations History of Present Illness HPI narrative: 58-year-old male who has a history of asthma, to dependent at 2 L, HIV on HARRT, G-tube secondary to dysphagia, hep C, hypertension, presents via EMS for evaluation of generalized weakness, shortness of breath and back pain. Patient states symptoms began over the past 2 days. He denies any trauma. He denies any UR symptoms. No coughing. He does report shortness of breath which is worse than baseline. He denies any chest pain. No fevers chills nausea or vomiting. He denies any abdominal pain. Patient states he is ambulatory at home on his own. He does receive VNA services. Patient states 2 days ago he began to have pain in the low back, particularly on the left low back and left flank. He denies any trauma. Patient states it was difficult for him to get out of the bathroom because of this. He reports having neck and back pain problems in the past. He denies any paresthesia or paralysis. Related Data Home Medications ?Medication ?Instructions ?Recorded ?Confirmed brimonidine 0.2 %-timolol 0.5 % 1 drp ophthalmic (eye) BID 06/01/23 01/10/24 eye drops fluticasone propionate 230 2 puff inhalation BID 06/01/23 01/10/24 mcg-salmeterol 21 mcg/actuation HFA inhaler (Advair HFA) calcium carbonate 600 mg-vitamin 1 tab feeding tube BID@1200,1800 12/16/23 01/10/24 D3 20 mcg (800 unit) tablet diphenhydramine HCl 25 mg tablet 50 mg feeding tube BEDTIME 12/16/23 01/10/24 (Banophen) ferrous gluconate 324 mg (38 mg 324 mg feeding tube BID 12/16/23 01/10/24 iron) tablet risperidone 3 mg tablet 3 mg feeding tube BEDTIME 12/16/23 01/10/24 tramadol 50 mg tablet 50 mg feeding tube BID PRN Pain 12/16/23 01/10/24 (Scale Score 7-10) albuterol 90 mcg-budesonide 80 2 inh inhalation Q6H PRN Wheezing 01/10/24 01/10/24 mcg/actuation HFA aerosol inhaler netarsudil 0.02 %-latanoprost 1 drp ophthalmic (eye) QPM 01/10/24 01/10/24 0.005 % eye drops (Rocklatan) omeprazole 10 mg capsule,delayed 10 mg feeding tube DAILY 01/10/24 01/10/24 release Previous Rx's ?Medication ?Instructions ?Recorded amlodipine 5 mg tablet 5 mg feeding tube DAILY #30 tabs 08/02/23 bictegravir 50 mg-emtricitabine 1 tab PO DAILY #14 tabs 08/02/23 200 mg-tenofovir alafenam 25 mg tablet (Biktarvy) clonazepam 1 mg tablet 1 mg feeding tube DAILY #10 tabs 08/02/23 gabapentin 600 mg tablet 600 mg feeding tube TID #20 tabs 08/02/23 mirtazapine 30 mg tablet 60 mg (2 x 30 mg) feeding tube 08/02/23 BEDTIME #20 tabs cefuroxime axetil 500 mg tablet 500 mg feeding tube BID 10 days 01/10/24 #20 tabs metronidazole 500 mg tablet 500 mg feeding tube BID 7 days #14 01/10/24 tabs cefuroxime axetil 500 mg tablet 500 mg feeding tube Q12H 7 days 02/15/24 #14 tabs metronidazole 500 mg tablet 500 mg feeding tube BID 7 days #14 02/15/24 tabs Allergies Allergy/AdvReac Type Severity Reaction Status Date / Time Seasonal Allergies Allergy Intermediate Eye Verified 02/15/24 19:28 Drainage codeine Allergy Mild Rash Verified 02/15/24 19:28 [From Tylenol-Codeine #3] levofloxacin [From Levaquin] Allergy Mild Rash Verified 02/15/24 19:28 metoclopramide [From Reglan] Allergy Mild Rash Verified 02/15/24 19:28 acetaminophen Allergy Unknown Unknown Verified 02/15/24 19:28 [Tylenol-Codeine #3] Penicillins [PENICILLINS] Allergy Unknown Rash Verified 02/15/24 19:28 ibuprofen [From Motrin] AdvReac Unknown Reflux Verified 02/15/24 19:28 Review of Systems 2 Constitutional: Constitutional: Denies chills, Denies fever(s) and Denies headache(s) Eyes: Eyes: Denies change in vision and Denies other (No redness.) ENT: Denies headache(s), Denies nasal congestion, Denies nasal discharge and Denies sore throat Cardiovascular: Cardiovascular: Denies chest pain, Denies palpitations, Reports dyspnea, Reports dyspnea on exertion and Denies orthopnea Respiratory: Respiratory: Denies cough, Reports dyspnea and Reports dyspnea on exertion Gastrointestinal: Gastrointestinal: Denies abdominal pain, Denies melena, Denies hematochezia, Denies diarrhea, Denies nausea and Denies vomiting Genitourinary: Genitourinary: Denies difficulty urinating, Denies dysuria and Denies urinary urgency Musculoskeletal: Musculoskeletal: Denies back pain, Denies muscle weakness and Denies numbness Integumentary/Breasts: Skin/Breast: Denies rash Neurologic: Denies headache(s), Denies focal weakness and Denies numbness Psychiatric: Psychiatric: Denies depression Endocrine: Endocrine: Denies palpitations PMFSH Past Medical History Medical History Asthma Dysphagia Adult failure to thrive Adult failure to thrive Multiple rib fractures History of empyema of pleura (01/05/23) Hypertension Closed fracture of leg Hepatitis C Kidney stones Pleuritic chest pain Pneumonia Substance abuse Hemorrhoids Depression HIV (human immunodeficiency virus infection) Asthma Surgical History H/O hemorrhoidectomy Social History Social History Household Members: None Household Members Other:: sister Housing: Apartment Do you presently have visiting nurse or other home services: Yes Alcohol intake: never Patient Tobacco Use Status: Former Tobacco user Tobacco use type: Cigarette e-Cigarette/Vaping Use: Never Used Second Hand Smoke Exposure: No Substance Use Type: Crack/Cocaine Advance Directives: Yes Advance Directives on File: Yes Advance Directives Date on File: 04/25/21 Do you have a plan to hurt others: No Plan service: No Current occupational status: disabled Physical Exam ED Vital Signs: Vital Signs - 24 hr 02/15/24 19:25 02/15/24 22:12 02/16/24 00:40 Temperature 99.3 F 98.1 F 97.2 F Pulse Rate 50 50 48 L Respiratory Rate 16 16 14 Blood Pressure 117/71 105/70 136/85 Pulse Oximetry 98 96 100 Oxygen Delivery Method Room Air Nasal Cannula Nasal Cannula Oxygen Flow Rate 3 3 02/16/24 00:40 Temperature 97.2 F Pulse Rate 48 L Respiratory Rate 15 Blood Pressure 136/85 Pulse Oximetry 100 Oxygen Delivery Method Nasal Cannula Oxygen Flow Rate 3 BMI result Body Mass Index 19.4 Const General: cooperative Resp Auscultation: clear to auscultation bilaterally Cardio Rate: regular rate Rhythm: regular rhythm GI Other: G-tube is intact. There is no erythema, edema or discharge from the site. Abdomen is soft and nontender throughout. Back/Spine/Pelvis Other: Supervisor Assembly is 5/5 bilaterally. Full range of motion of all joints. Dorsiflexion and plantar flexion are intact. There is no spinous, paraspinous or paravertebral tenderness. There is mild diffuse mid thoracic, left flank and left lumbar region tenderness. There is no ecchymosis, rash or lesions. Course Course Course Narrative: 11:00 p.m. patient resting comfortably at this time. He continues to endorse low back pain. He again confirms that he has had this same type of pain in the past. CT results returned. Concern for material in the airway for possible aspiration. Given that the patient has long history of aspiration, will place on antibiotics. Cefuroxime and Flagyl which the patient has tolerated in the past. Discussed with Dr. Nagel who agrees with plan. Medications Administered Discontinued Medications Generic Name Dose Route Start Last Admin Trade Name Freq PRN Reason Stop Dose Admin Cefuroxime Axetil 500 mg 02/15/24 23:03 02/16/24 00:13 Cefuroxime Axetil 500 Mg Tablet G-TUBE 02/15/24 23:04 500 mg ONCE ONE Administration Metronidazole 500 mg 02/15/24 23:03 02/16/24 00:13 Metronidazole 500 Mg Tablet G-TUBE 02/15/24 23:04 500 mg ONCE ONE Administration Medical Decision Making Medical Decision Making MDM Narrative: 58-year-old male, history of asthma, oxygen dependent on 2 L, HIV, NG tube, with a 2 day history of left low back, left leg pain. Patient also reporting shortness of breath which is slightly worse than baseline. Check labs, EKG, UA. Given the patient's extensive history, we will CT chest and abdomen and pelvis. Differential Diagnosis Differential Diagnoses: The differential diagnosis associated with the presentation includes Pneumonia Bronchitis Asthma exacerbation Failure to thrive Deconditioning Metabolic environmental Admission/Observation Consideration of admission/observation: Escalation of care including admission/observation considered Lab Data MDM Lab Attestation statement: I reviewed the patient's lab results. 02/15/24 19:37 02/15/24 20:38 Labs: Lab Results 02/15/24 02/15/24 Range/Units 19:37 20:38 WBC 4.2 L (4.8-10.8) X10*3/uL RBC 4.07 L (4.60-5.80) X10*6/uL Hgb 13.6 L (14.0-18.0) g/dl Hct 39.9 L (42.0-52.0) % MCV 98.0 (80.0-98.0) fL MCH 33.4 H (27.0-33.0) pg MCHC 34.1 (31.0-36.0) g/dl RDW 13.1 (11.0-16.0) % Plt Count 172 (160-400) X10*3/uL MPV 12.8 H (9.4-12.4) fL Immature Gran % (Auto) 0.2 (0.0-0.4) % Neut % (Auto) 25.0 L (45-73) % Lymph % (Auto) 56.6 H (20-40) % [place] % (Auto) 13.3 H (2-11) % Eos % (Auto) 3.9 (0-4) % Baso % (Auto) 1.0 (0-2) % Lymph # (Auto) 2.4 (1.2-4.9) X10*3/uL [place] # (Auto) 0.6 (0.1-1.2) X10*3/uL Eos # (Auto) 0.2 (0.0-0.4) X10*3/uL Baso # (Auto) 0.0 (0.0-0.2) X10*3/uL Abs Immat Gran (auto) 0.01 (0.00-0.03) X10*3/uL Absolute Neuts (auto) 1.0 L (2.0-8.3) x10*3/uL Absolute Nucleated RBC 0.000 (0.0-0.012) X10*3/uL Nucleated RBC % (auto) 0.0 (0.0-0.2) /100WBC Sodium 144 (135-145) mmol/L Potassium 4.0 (3.3-5.1) mmol/L Chloride 104 (96-108) mmol/L Carbon Dioxide 29 (22-29) mmol/L Anion Gap 15 (12-20) BUN 14 (9-16) mg/dL Creatinine 0.94 (0.5-1.4) mg/dL Estim Creat Clear Calc 65.1 Estimated GFR > 60 Random Glucose 77 (60-115) mg/dL Calcium 9.8 (8.4-10.2) mg/dL Troponin I High Sens 2.9 (<3.5-35.0) ng/L Independent Interpretation I performed an independent interpretation of an: EKG (Sinus bradycardia 45 beats per minute without any acute ischemic changes) Radiology Impression Discussion of test interpretation with radiology: I have reviewed the radiologist's reading. Radiologist Impression: [place] [id number] CT Scan Report Signed Patient: Benjamin Fall MR#: [id number] : 1965 Acct:[id number] Age/Sex: 58 / M ADM Date: 02/15/24 Loc: .ED Attending Dr: Ordering Physician: Lexx Orozco Date of Service: 02/15/24 Procedure(s): CT chest wo IV con Accession Number(s): [id number] cc: Physician,Unknown ; Lexx Orozco~ EXAMINATION: CT CHEST, ABDOMEN AND PELVIS WITHOUT CONTRAST. CLINICAL INFORMATION: Chest pain, shortness of breath, left flank pain. COMPARISON: CT chest 01/10/2024. CT abdomen/pelvis 01/03/2023. TECHNIQUE: Multidetector volumetric imaging was performed from the thoracic inlet through the pubic symphysis without IV contrast. Sagittal and coronal reformatted images were obtained on the technologist's workstation. This CT examination was performed using dose optimization techniques as appropriate, variously including the following: *Automated exposure control *Adjustment of mA and/or kV according to patient size (this includes techniques or standardized protocols for targeted exams where dose is matched to indication/reason for exam; i.e. extremities or head) *Use of iterative reconstruction technique DLP: 418 mGy-cm FINDINGS: Limited noncontrast examination. CHEST: Lung: Evaluation is limited due to respiratory motion. No dense consolidation. Dependent subsegmental atelectasis and/or scarring. Layering intraluminal secretions are noted in the upper trachea, ciro and left mainstem bronchi. Focal mild bronchiectasis and architectural distortion in the superior aspect of the right lower lobe (7:156). Minimal groundglass attenuation of the lung parenchyma in the right apex (7:53). Few bilateral up to 3 mm solid pulmonary nodules, for instance in the right lower lobe images 256 and 228 series 7. Very subtle focal groundglass nodule in the right lower lobe measuring 8 mm image 178 series 7. Mediastinum: Cardiomegaly. No pericardial effusion. No mediastinal lymphadenopathy. Evaluation of the hilar structures is limited in the absence of IV contrast. Normal appearance of the thyroid gland. Pleura: No pleural effusion. No pneumothorax. Chest Wall/Axilla: No lymphadenopathy by size criteria. Osseous structures: Stable multilevel vertebral body height loss. Thoracic spondylosis. Unchanged deformities of the left seventh and eighth ribs with overlying metallic densities along the posterior aspect of these ribs. No acute osseous findings. ABDOMEN/PELVIS: Peritoneal Space: No free air or free fluid. Liver, Gallbladder, Biliary Tree: The liver is normal in size, shape, and attenuation. No focal hepatic lesion or biliary ductal dilatation is present. The gallbladder is unremarkable with no evidence of radiopaque gallstones, gallbladder wall thickening, or obvious pericholecystic inflammatory changes. Pancreas: Unremarkable. Spleen: Unremarkable. Adrenal Glands: Mild asymmetric fullness of the left adrenal gland is unchanged. Kidneys and Ureters: Multiple bilateral nonobstructive renal calculi measuring up to 3 mm. No hydronephrosis. No perinephric fat stranding. Bladder: Punctate calcification abutting the left posterior bladder wall (11:65). Gastrointestinal Tract: Gastrostomy tube. The stomach and the small bowel are nondilated. Normal appendix. Mild colonic diverticulosis without pericolonic inflammatory changes. No evidence of bowel obstruction. Abdominal Wall: No significant hernia is appreciated. Lymphovascular Structures: No lymphadenopathy by size criteria. Normal caliber abdominal aorta. Pelvic Viscera: Unremarkable. Osseous Structures: No acute osseous findings. CT/CT chest wo IV con IMPRESSION: 1. No focal consolidation or significant groundglass disease. Intraluminal secretions in the trachea and left mainstem bronchi that could be related with mucous secretions or aspirated material and that could predispose to aspiration. 2. Few bilateral groundglass and solid pulmonary nodules measuring up to 8 mm. Following Fleischner guidelines, follow-up CT chest in 3-6 months is recommended. 3. Nonobstructive bilateral renal calculi. 4. Punctate calcification abutting the left posterior bladder wall that could be related with a recently passed stone. Recommend attention on follow-up in future examinations to ensure the absence of underlying mural lesions. 5. Diverticulosis but no evidence of acute diverticulitis. Dictated By: Laurie López Signed By: <Electronically signed by Laurie López in [place]> 02/15/242238 DD/ 20 TD/TT: Buyers' Agent: External Record Review External record reviewed: Inpatient record Chronic Conditions Patient?s care impacted by: Hypertension Discharge Plan Discharge Clinical Impression: Back pain Qualifiers: Back pain location: low back pain Chronicity: chronic Back pain laterality: r ight Sciatica presence: without sciatica Qualified Code(s): M54.50 - Low back pain, unspecified Aspiration into airway Qualifiers: Encounter type: subsequent encounter Qualified Code(s): T17.908D - Unspecified foreign body in respiratory tract, part unspecified causing other injury, subsequent encounter Patient Disposition: Home, Self-Care Instructions: Back Pain (ED) Additional Instructions: Continue current medications as directed. Cefuroxime a and metronidazole as directed. These are antibiotics as there is concern for possible early aspiration pneumonia Follow-up with your primary care provider. Call this week to schedule a follow- up appointment. Return to the emergency department if you have any worsening of symptoms, or any concerns. Get well soon! Prescriptions: New cefuroxime axetil 500 mg tablet 500 mg feeding tube Q12H 7 Days Qty: 14 0RF metronidazole 500 mg tablet 500 mg feeding tube BID 7 Days Qty: 14 0RF No Action gabapentin 600 mg tablet 600 mg feeding tube TID Qty: 20 0RF clonazepam 1 mg tablet 1 mg feeding tube DAILY Qty: 10 0RF amlodipine 5 mg tablet 5 mg feeding tube DAILY Qty: 30 0RF mirtazapine 30 mg tablet 60 mg feeding tube BEDTIME Qty: 20 0RF Biktarvy 50-200-25 mg tablet 1 tab PO DAILY Qty: 14 0RF Rx Instructions: Ok to crush and give via feeding tube tramadol 50 mg tablet 50 mg feeding tube BID PRN (Reason: Pain (Scale Score 7-10)) risperidone 3 mg tablet 3 mg feeding tube BEDTIME diphenhydramine HCl [Banophen] 25 mg tablet 50 mg feeding tube BEDTIME ferrous gluconate 324 mg (38 mg iron) tablet 324 mg feeding tube BID calcium carbonate-vitamin D3 600 mg-20 mcg (800 unit) tablet 1 tab feeding tube BID@1200,1800 cefuroxime axetil 500 mg tablet 500 mg feeding tube BID 10 Days Qty: 20 0RF metronidazole 500 mg tablet 500 mg feeding tube BID 7 Days Qty: 14 0RF omeprazole 10 mg Capsule,Delayed Release(Dr/Ec) 10 mg feeding tube DAILY Rocklatan 0.02-0.005 % Drops 1 drp OPHTHALMIC (EYE) QPM albuterol-budesonide 90-80 mcg/actuation Hfa Aerosol Inhaler 2 inh INHALATION Q6H PRN (Reason: Wheezing) fluticasone propion-salmeterol [Advair HFA] 230-21 mcg/actuation HFA aerosol inhaler 2 puff inhalation BID brimonidine-timolol 0.2-0.5 % drops 1 drp ophthalmic (eye) BID Interventions: ED Discharge Assessment Last Done: 02/16/24 00:40 Discharge Date/Time: 02/16/24 00:41 Print Language: Sinhala
[2024-02-15 20:06] LABS: MANUAL DIFF FLAG NO
[2024-02-15 20:08] LABS: Eosinophils Absolute Auto 0.2 X10*3/uL (0.0-0.4); Eosinophils Percent Auto 3.9 % (0-4); Hematocrit 39.9 % (42.0-52.0); Hemoglobin 13.6 g/dl (14.0-18.0); Imm Gran Abs Auto 0.01 X10*3/uL (0.00-0.03); Imm Gran Pct Auto 0.2 % (0.0-0.4); Lymphocytes Absolute Auto 2.4 X10*3/uL (1.2-4.9); Lymphocytes Percent Auto 56.6 % (20-40); Mean Corpuscular HGB Conc 34.1 g/dl (31.0-36.0); Mean Corpuscular Hemoglobin 33.4 pg (27.0-33.0); Mean Platelet Volume 12.8 fL (9.4-12.4); Monocytes Absolute Auto 0.6 X10*3/uL (0.1-1.2); Monocytes Percent Auto 13.3 % (2-11); Platelet Count 172 X10*3/uL (160-400); Red Blood Count 4.07 X10*6/uL (4.60-5.80); Red Cell Distribution Width 13.1 % (11.0-16.0); White Blood Count 4.2 X10*3/uL (4.8-10.8)
[2024-02-15 20:56] LABS: Anion Gap 15 (12-20); Blood Urea Nitrogen 14 mg/dL (9-16); Calcium 9.8 mg/dL (8.4-10.2); Carbon Dioxide 29 mmol/L (22-29); Chloride 104 mmol/L (96-108); Creatinine Clr Calc Pharmacy 65.1; Estimated Glomerular Filt Rate > 60; Glucose Random 77 mg/dL (60-115); Sodium 144 mmol/L (135-145)
[2024-02-15 21:04] LABS: Troponin-I High Sensitivity 2.9 ng/L (<3.5-35.0)
[2024-02-15 22:12] VITALS: BP 105/70; PULSE 50; RESP 16; TEMP 36.7; O2SAT 96
[2024-02-16] MEDS: cefuroxime axetiL 500 MG TABLET G-TUBE (00:13)
[2024-02-16] MEDS: metroNIDAZOLE 500 MG TABLET G-TUBE (00:13)
[2024-02-16 00:40] VITALS: BP 136/85; PULSE 48; RESP 14; RESP 15; TEMP 36.2; O2SAT 100
== END 2024-02-16 00:41 | disposition home or self-care (01) ==
PROVIDERS: Internal Medicine; Emergency Provider Emergency Medicine
DX: M54.50 Low back pain, unspecified (principal); M54.2 Cervicalgia; R51.9 Headache, unspecified; R13.10 Dysphagia, unspecified; R07.89 Other chest pain; R00.1 Bradycardia, unspecified; R10.2 Pelvic and perineal pain; Z79.899 Other long term (current) drug therapy
CPT/HCPCS: 36415; 71250; 74176; 80048; 84484; 85025; 93005; 99284

== ENCOUNTER → 2024-02-15 19:29 | Outpatient (BNV) | payer OTHER, SELFPAY | PROVIDERS: Emergency Provider Emergency Medicine; Visit Provider Internal Medicine Cardiovascular Disease | DX: R94.31 Abnormal electrocardiogram [ECG] [EKG] (principal); R07.9 Chest pain, unspecified | CPT/HCPCS: 93010 ==

== ENCOUNTER 2024-03-06 17:33 | Inpatient (IN) | payer OTHER, SELFPAY ==
--- NOTE | ~2024-03-06 | CT_ITS ---
EXAMINATION: CT head/brain wo IV con CLINICAL INFORMATION: Reason for Exam Lethargy/altered mental status + headache COMPARISON: MR brain 10/26/2023, CT head 09/01/2023 TECHNIQUE: Contiguous axial imaging was performed from the skull base to vertex without intravenous contrast. Sagittal and coronal reformatted images were obtained. This CT examination was performed using dose optimization techniques as appropriate, variously including the following: * Automated exposure control * Adjustment of mA and/or kV according to patient size (this includes techniques or standardized protocols for targeted exams where dose is matched to indication/reason for exam; i.e. extremities or head) Use of iterative reconstruction technique DLP: 586 mGy-cm FINDINGS: There is no evidence of acute intracranial hemorrhage. No mass-effect or ventricular shift is noted. No acute, territorial loss of oliveira-white differentiation. The ventricles and sulci are appropriate in size and configuration for the patient's stated age. Periventricular and subcortical white matter hypodensity is nonspecific but likely represents chronic microvascular ischemic change. No depressed calvarial fracture. Trace mucosal thickening in the partially visualized paranasal sinuses. Intracranial atherosclerotic calcification is noted. The mastoid air cells are clear. CT/CT head/brain wo IV con IMPRESSION: No acute intracranial hemorrhage or territorial loss of oliveira-white differentiation.
--- NOTE | ~2024-03-06 | XR_ITS ---
EXAMINATION: XR CHEST CLINICAL INFORMATION: Coughing. COMPARISON: Chest x-ray January 10, 2024 TECHNIQUE: Frontal portable view of the chest was obtained. 1948 hours FINDINGS: Surgical clips in the left hilum. Heart size is normal. Cardiac and mediastinal contours are normal. No pulmonary vascular congestion. No acute airspace disease. No pleural effusion or pneumothorax. XR/XR chest 1V IMPRESSION: No acute abnormality of chest.
[2024-03-06 17:46] VITALS: BP 114/76; PULSE 50; RESP 16; TEMP 36.4; O2SAT 94; BMI 19.5
[2024-03-06 18:00] VITALS: BP 113/74; PULSE 47; RESP 12; TEMP 36.2; O2SAT 89
[2024-03-06 18:02] LABS: MANUAL DIFF FLAG NO
[2024-03-06 18:07] LABS: Basophils Absolute Auto 0.1 X10*3/uL (0.0-0.2); Basophils Percent Auto 1.4 % (0-2); Eosinophils Absolute Auto 0.2 X10*3/uL (0.0-0.4); Eosinophils Percent Auto 4.2 % (0-4); Hematocrit 40.9 % (42.0-52.0); Hemoglobin 14.1 g/dl (14.0-18.0); Lymphocytes Absolute Auto 2.3 X10*3/uL (1.2-4.9); Lymphocytes Percent Auto 52.9 % (20-40); Mean Corpuscular HGB Conc 34.5 g/dl (31.0-36.0); Mean Corpuscular Hemoglobin 33.4 pg (27.0-33.0); Mean Corpuscular Volume 96.9 fL (80.0-98.0); Mean Platelet Volume 12.4 fL (9.4-12.4); Monocytes Absolute Auto 0.6 X10*3/uL (0.1-1.2); Monocytes Percent Auto 13.4 % (2-11); Neutrophils Absolute Auto 1.2 x10*3/uL (2.0-8.3); Neutrophils Percent Auto 28.1 % (45-73); Platelet Count 169 X10*3/uL (160-400); Red Blood Count 4.22 X10*6/uL (4.60-5.80); Red Cell Distribution Width 13.1 % (11.0-16.0); White Blood Count 4.3 X10*3/uL (4.8-10.8)
[2024-03-06 18:11] LABS: IDNOW Serial# 58CA691E; Strep A Nucleic Acid Negative (Negative)
[2024-03-06 18:19] LABS: Alanine Aminotransferase 52 U/L (0-40); Albumin Level 4.1 g/dL (3.5-5.0); Alkaline Phosphatase 47 U/L (39-117); Anion Gap 12 (12-20); Aspartate Amino Transferase 43 U/L (5-37); Bilirubin Total 0.4 mg/dL (0.0-1.0); Blood Urea Nitrogen 17 mg/dL (9-16); Carbon Dioxide 27 mmol/L (22-29); Chloride 105 mmol/L (96-108); Creatinine Clr Calc Pharmacy 65.6; Estimated Glomerular Filt Rate > 60; Glucose Random 77 mg/dL (60-115); Sodium 140 mmol/L (135-145); Total Protein 7.6 g/dL (6.5-8.0)
--- OUTSIDE RECORDS SUMMARY | 2024-03-06 18:20 | XMS_ITS | Patient Health Record ---
Demographics Address [address] [place] [address] Preferred Language en Marital Status Unknown Jehovah'S Witness Affiliation Unknown Race White Ethnic Group Not or Lati no Author Organization [facility] Address [address] [place] [address] Care Team Providers Care State Federal Relations Deputy Director Name Role Phone Terese Rivera Primary Care Provider Pepe Dangelo Unavailable [phone] Jason Dodson Jr Unavailable [phone] ALLERGIES Allergen (clinical drug ingredient) Drug/Non Drug Allergy documented on EMR Reaction Allergy Type Onset Date Status Motrin Unknown Drug Allergy Active codeine Codeine Sulfate Unknown Drug Allergy A ctive RESULTS Component Value Reference Range Notes Pathology Reviewed date:07/19/2023 09:18:10 AM Interpretation: Performing Lab:[facility], [address] [place] [id number] Notes/Report: Prothrombin Time INR Reviewed date:07/29/2023 07:49:31 PM Interpretation: Performing Lab:[facility], [address] [place] [phone] Notes/Report: Prothrombin Time 13.8 11.1-13.3 SEC INTERNATIONAL NORM RATIO 1.1 0.9-1.1 INTERNATIONAL NORMALIZED RATIO (INR) REFERENCE RANGES Reference Range For patients not on anticoagulant therapy: 0.9 - 1.1 INR ranges for oral anticoagulant therapy: For prevention and treatment of venous thrombosis and pulmonary embolism: 2.0 - 3.0 For acute myocardial infarction with aspirin therapy: 2.0 - 3.0 For acute myocardial infarction without aspirin therapy: 3.0 - 4.0 For patients with mechanical prosthetic heart valves: 2.5 - 3.5 CT soft tissue neck w con Reviewed date:08/02/2023 03:56:38 PM Interpretation: Performing Lab: Notes/Report: [address] [address] [address] Scan Report Signed Patient: Vickie Duffy MR#: [id number] : 1965 Acct:[id number] Age/Sex: 58 / M ADM Date: 07/27/23 Loc: .S3 359-[address]: Gregg Whitaker MD Ordering Physician: Pepe Stephenson Date of Service: 07/31/23 Procedure(s): CT soft tissue neck w IV con Accession Number(s): [id number] cc: Terese Rivera MD; Pepe Stephenson EXAMINATION: CT SOFT TISSUE NECK WITH CONTRAST CLINICAL INFORMATION: Dysphagia and aphasia. Question tonsillar lesion. COMPARISON: CT head 06/18/2023. TECHNIQUE: Following the intravenous administration of 60 mL of Omnipaque 350 intravenous contrast, helical imaging was performed in the axial plane with generation of coronal and sagittal reformatted images. This CT examination was performed using dose optimization techniques as appropriate, variously including the following: *Automated exposure control *Adjustment of mA and/or kV according to patient size (this includes techniques or standardized protocols for targeted exams where dose is matched to indication/reason for exam; i.e. extremities or head) *Use of iterative reconstruction technique DLP: 268 mGy-cm FINDINGS: There is possible asymmetric mucosal thickening and enhancement within the right glossotonsillar sulcus. Pharyngeal mucosal spaces are otherwise symmetric. The parotid and submandibular glands are normal. Parapharyngeal and retromaxillary fat is preserved. Cake Froster spaces are unremarkable. The tongue base and epiglottis are normal. Preepiglottic fat is preserved. Glottic and subglottic airways are widely patent. The thyroid gland is normal and the remainder of the visualized visceral soft tissues are normal. There are no pathologically enlarged cervical lymph nodes. No mediastinal or axillary adenopathy is visualized within the lxfej-cf-jrro of this examination. Lung apices are clear. Aortic arch apex is normal. Cervical carotid and vertebral arteries are patent. There is no contrast filling the right internal jugular vein. The left internal jugular vein is widely patent. No acute osseous finding. Specifically no worrisome lytic or blastic osseous lesion. There is advanced multilevel degenerative arthrosis of the cervical spine with at least mild canal stenosis at multiple levels. Possible moderate canal stenosis at C3-C4. CT/CT soft tissue neck w IV con IMPRESSION: There is possible asymmetric mucosal thickening and enhancement within the right glossotonsillar sulcus. Correlation with direct visualization is therefore recommended with regard to this finding. Otherwise no discrete enhancing soft tissue mass or adenopathy is visualized elsewhere within the bhosh-vn-bpam of this examination. There is advanced multilevel degenerative arthrosis of the cervical spine with at least mild canal stenosis at multiple levels. Possible moderate canal stenosis at C3-C4. If there are clinical symptoms of compressive myelopathy then a dedicated cervical spine MRI can be obtained for better anatomic characterization of the cord and canal. Dictated By: Pepe Garcia MD Signed By: <Electronically signed by Pepe Garcia MD in OV> 07/31/23 1736 DD/ 1610 TD/TT: Financial Services Counselor: REASON FOR REFERRAL No Information MEDICATIONS Medication SIG (Take, Route, Frequency, Duration) Notes Start Date End Date Status NexIUM 40mg 09/10/2023 09/10/2023 Active Xanax 09/10/2023 09/10/2023 Active Atripla 09/10/2023 09/10/2023 Active Dilantin 100 MG 1 capsule Orally TID for 30 day(s) Active Xanax 2mg BID Active Colyte with Flavor Packs 227.1 GM as directed Orally as directed for 1 day(s) 02/26/2013 Active KlonoPIN 2 MG 1 tablet Orally TID Active Aleve 09/10/2023 09/10/2023 Active Aspirin 325mg 09/10/2023 09/10/2023 Acti ve Multi Vitamin/Minerals 09/10/20232023 Active SOCIAL HISTORY Sex Assigned At : Social History Observation Description Sex Assigned At Unknown PROBLEMS Problem Type ICD Code Onset Dates Problem Status W/U Status Risk SNOMED Code Notes Problem Blood in stool (578.1) Active confirmed Blood in stool (659114323) Problem Constipation (564.00) Active confirmed Constipation (25924110) Problem GERD (gastroesophage al reflux disease) (530.81) Active confirmed Gastroesophagea l reflux disease (718438115) Problem Dysphagia (R13.10) Active confirmed Dysphagia (43540435) Problem Anorexia (R63.0) Active confirmed Anorexia (34631284) Problem Unspecified protein-calorie malnutrition (E46) Active confirmed Protein calorie malnutrition (766151265) Encounters Encounter Location Date Provider Diagnosis [facility] [address] [place] [address] 12/14/2023 Pepe Stephenson [facility] [address] [place] [address] 07/19/2023 Jason Dodson Jr [facility] [address] [place] [address] 08/21/2023 Pepe Stephenson [facility] [address] [place] [address] 12/14/2023 Pepe Stephenson PLAN OF TREATMENT Future Test Test Name Order Date UPPER GI ENDOSCOPY 02/26/2013 COLONOSCOPY 02/26/2013 Insurance Providers Payer Name Payer Address Payer Phone Subscriber Number Group Number Insured Name Patient Relationship to Insured Coverage Start Date Coverage End Date [facility] [address] Attn Claims HOSEA Solorzano [id number] [facility] Self - patient is the insured MEDICAID OF [employer] [address] [place] [address] [id number] [facility] Self - patient is the insured MEDICAL (GENERAL) HISTORY Medical History History ICD Code seizures kidney stones Denies OH,DM,CVA,renal disease HIV infection since age 23-[address] e[address]-reports neg. hepatitis serologies GERD Mild asthma-Albuterol prn Anxiety Fibromyalgia Surgical History Surgery Date(Month/Year) hemorrhoidectomy 2004 Eye surgery as a child
[2024-03-06 18:42] LABS: Influenza A PCR NEGATIVE (Negative); Influenza B PCR NEGATIVE (Negative); Resp Syncy Virus RNA Qual PCR NEGATIVE (Negative); SARS COV2 PCR INHOUSE NEGATIVE (Negative)
--- NOTE | 2024-03-06 19:26 | ED.GENADULT ---
HPI - General Adult General Chief complaint: Headache Stated complaint: BRADYCARDIC Time Seen by Provider: 03/06/24 19:15 Source: patient, EMS and old records reviewed Mode of arrival: EMS Limitations: no limitations History of Present Illness ED Provider: DR. Younger HPI narrative: 58-year-old male with PND significant for asthma, HIV, dysphagia, G-tube placement, hepatitis-C, HTN. Patient was brought in by ambulance for evaluation of sore throat, headache, coughing with brownish sputum for the past 2 days, no sick contacts, no recent travel. Related Data Home Medications ?Medication ?Instructions ?Recorded ?Confirmed brimonidine 0.2 %-timolol 0.5 % 1 drp ophthalmic (eye) BID 06/01/23 01/10/24 eye drops fluticasone propionate 230 2 puff inhalation BID 06/01/23 01/10/24 mcg-salmeterol 21 mcg/actuation HFA inhaler (Advair HFA) calcium carbonate 600 mg-vitamin 1 tab feeding tube BID@1200,1800 12/16/23 01/10/24 D3 20 mcg (800 unit) tablet diphenhydramine HCl 25 mg tablet 50 mg feeding tube BEDTIME 12/16/23 01/10/24 (Banophen) ferrous gluconate 324 mg (38 mg 324 mg feeding tube BID 12/16/23 01/10/24 iron) tablet risperidone 3 mg tablet 3 mg feeding tube BEDTIME 12/16/23 01/10/24 tramadol 50 mg tablet 50 mg feeding tube BID PRN Pain 12/16/23 01/10/24 (Scale Score 7-10) albuterol 90 mcg-budesonide 80 2 inh inhalation Q6H PRN Wheezing 01/10/24 01/10/24 mcg/actuation HFA aerosol inhaler netarsudil 0.02 %-latanoprost 1 drp ophthalmic (eye) QPM 01/10/24 01/10/24 0.005 % eye drops (Rocklatan) omeprazole 10 mg capsule,delayed 10 mg feeding tube DAILY 01/10/24 01/10/24 release Previous Rx's ?Medication ?Instructions ?Recorded amlodipine 5 mg tablet 5 mg feeding tube DAILY #30 tabs 08/02/23 bictegravir 50 mg-emtricitabine 1 tab PO DAILY #14 tabs 08/02/23 200 mg-tenofovir alafenam 25 mg tablet (Biktarvy) clonazepam 1 mg tablet 1 mg feeding tube DAILY #10 tabs 08/02/23 gabapentin 600 mg tablet 600 mg feeding tube TID #20 tabs 08/02/23 mirtazapine 30 mg tablet 60 mg (2 x 30 mg) feeding tube 08/02/23 BEDTIME #20 tabs cefuroxime axetil 500 mg tablet 500 mg feeding tube BID 10 days 01/10/24 #20 tabs metronidazole 500 mg tablet 500 mg feeding tube BID 7 days #14 01/10/24 tabs cefuroxime axetil 500 mg tablet 500 mg feeding tube Q12H 7 days 02/15/24 #14 tabs metronidazole 500 mg tablet 500 mg feeding tube BID 7 days #14 02/15/24 tabs Allergies Allergy/AdvReac Type Severity Reaction Status Date / Time Seasonal Allergies Allergy Intermediate Eye Verified 03/06/24 17:47 Drainage codeine Allergy Mild Rash Verified 03/06/24 17:47 [From Tylenol-Codeine #3] levofloxacin [From Levaquin] Allergy Mild Rash Verified 03/06/24 17:47 metoclopramide [From Reglan] Allergy Mild Rash Verified 03/06/24 17:47 acetaminophen Allergy Unknown Unknown Verified 03/06/24 17:47 [Tylenol-Codeine #3] Penicillins [PENICILLINS] Allergy Unknown Rash Verified 03/06/24 17:47 ibuprofen [From Motrin] AdvReac Unknown Reflux Verified 03/06/24 17:47 Review of Systems Review of Systems: All other systems are reviewed and are negative Constitutional: Reports as per HPI and Reports no additional constitutional complaints Eyes: Reports as per HPI and Reports no additional eye complaints Reports system reviewed and no additional complaints, except as documented Cardiovascular: Reports as per HPI and Reports no additional cardiovascular complaints Respiratory: Reports as per HPI and Reports no additional respiratory complaints Gastrointestinal: Reports as per HPI and Reports no additional gastrointestinal complaints Genitourinary: Reports no additional female genitourinary complaints Musculoskeletal: Reports no additional musculoskeletal complaints Skin/Breast: Reports system reviewed and no additional complaints, except as docu Psychiatric: Reports no additional psychiatric complaints Endocrine: Reports no additional endocrine complaints Hematologic/Lymphatic: Reports no additional hematologic/lymphatic complaints Allergic/Immunologic: Reports no additional allergic/immunologic complaints Reports system reviewed and no additional complaints, except as documented and Reports Abnormal speech present [facility] Past Medical History Medical History Asthma Dysphagia Adult failure to thrive Adult failure to thrive Multiple rib fractures History of empyema of pleura (01/05/23) Hypertension Closed fracture of leg Hepatitis C Kidney stones Pleuritic chest pain Pneumonia Substance abuse Hemorrhoids Depression HIV (human immunodeficiency virus infection) Asthma Surgical History H/O hemorrhoidectomy Social History Social History Household Members: None Household Members Other:: sister Housing: Apartment Do you presently have visiting nurse or other home services: Yes Alcohol intake: never Patient Tobacco Use Status: Former Tobacco user Tobacco use type: Cigarette e-Cigarette/Vaping Use: Never Used Second Hand Smoke Exposure: No Substance Use Type: Crack/Cocaine Advance Directives: Yes Advance Directives on File: Yes Advance Directives Date on File: 04/25/21 Do you have a plan to hurt others: No Plan service: No Current occupational status: disabled Physical Exam ED Vital Signs: Vital Signs - 24 hr 03/06/24 17:46 03/06/24 18:00 03/06/24 20:30 Temperature 97.6 F 97.2 F 97.5 F Pulse Rate 50 47 L 53 Respiratory Rate 16 12 15 Blood Pressure 114/76 113/74 105/71 Pulse Oximetry 94 89 L 92 Oxygen Delivery Method Room Air Room Air Room Air 03/06/24 21:04 03/06/24 23:09 Temperature 97.6 F Pulse Rate 49 L 56 Respiratory Rate 18 16 Blood Pressure 107/70 Pulse Oximetry 92 Oxygen Delivery Method Nasal Cannula BMI result Body Mass Index 19.5 Vital signs have been reviewed and appear to be correct. Blood pressure elevated. Heart rate normal. Respiratory rate normal. Temperature normal. Oxygen saturation normal. Appearance: Alert. Oriented X3. No acute distress. Head: Normal external exam. Normocephalic. Atraumatic. No [place] signs noted. No raccoon eyes noted Eyes: PERRLA. EOMI. Conjunctiva and sclera normal. Eyelids normal. ENT: TM's Normal. Pharynx normal. Uvula midline. Moist mucous membranes. No trismus noted. No drooling noted. No muffled voice noted. Neck: Normal inspection. Neck supple. FROM. No adenopathy. Thyroid Normal. No meningeal signs. No neck mass noted. CVS: Normal heart rate and rhythm. Heart sound normal. No murmurs noted. Pulses normal throughout. Respiratory: No respiratory distress. Painless inspiration. Diffuse expiratory wheezing with prolonged expiration and decrease breathing sounds bilaterally No accessory muscle usage noted or decreased air movement noted. Abdomen: Soft and nontender. Bowel sounds normal in all 4 quadrants. No distention noted. No organomegaly noted. No visible injury noted. Back: No CVA tenderness. Full range of motion noted. Skin: Skin warm and dry. Normal skin color. Normal skin turgor. No rashes/lesions/lacerations noted. Extremities: No lower extremity edema. Extremities exhibit normal range of motion. Extremities nontender. Neuro: Oriented X 3. Cranial nerve exam: II-XII are grossly intact No motor deficit. No sensory deficit. Reflexes normal. Course Reevaluation(s) Reevaluation #1: Asthma exacerbation with hypoxia, asymptomatic bradycardia. Patient feels better after bronchodilator hand steroid, improvement of the hypoxia with 2 L of nasal cannula O2. Asymptomatic sinus bradycardia could be secondary to medications improved from 49-56. Time: 23:33 Medications Administered Discontinued Medications Generic Name Dose Route Start Last Admin Trade Name Freq PRN Reason Stop Dose Admin Albuterol/Ipratropium 3 ml 03/06/24 21:01 03/06/24 21:03 Albuterol/Iprat 2.5/0.5mg 3 Ml Ampul.Neb INHALE 03/06/24 21:02 3 ml ONCE ONE Administration Methylprednisolone Sodium Succinate 125 mg 03/06/24 20:52 03/06/24 21:20 Methylprednisolone Sod Succ 125 Mg/2 Ml Vial IVPUSH 03/06/24 20:53 125 mg ONCE ONE Administration Tramadol HCl 50 mg 03/06/24 21:54 03/06/24 23:21 Tramadol Hcl 50 Mg Tablet PO 03/06/24 21:55 50 mg ONCE ONE Administration Medical Decision Making Differential Diagnosis Differential Diagnoses: The differential diagnosis associated with the presentation includes (Upper respiratory infection, asthma exacerbation, pneumonia, pneumothorax, pleural effusion electrolyte derangement, ACS, severe anemia.) Admission/Observation Consideration of admission/observation: Escalation of care including admission/observation considered Consult Healthcare Provider Management of the patient was discussed with: Hospitalist (Dr. Cornell) Lab Data MDM Lab Attestation statement: I reviewed the patient's lab results. 03/06/24 17:57 03/06/24 17:57 Labs: Lab Results 03/06/24 Range/Units 17:57 WBC 4.3 L (4.8-10.8) X10*3/uL RBC 4.22 L (4.60-5.80) X10*6/uL Hgb 14.1 (14.0-18.0) g/dl Hct 40.9 L (42.0-52.0) % MCV 96.9 (80.0-98.0) fL MCH 33.4 H (27.0-33.0) pg MCHC 34.5 (31.0-36.0) g/dl RDW 13.1 (11.0-16.0) % Plt Count 169 (160-400) X10*3/uL MPV 12.4 (9.4-12.4) fL Immature Gran % (Auto) 0.0 (0.0-0.4) % Neut % (Auto) 28.1 L (45-73) % Lymph % (Auto) 52.9 H (20-40) % [place] % (Auto) 13.4 H (2-11) % Eos % (Auto) 4.2 H (0-4) % Baso % (Auto) 1.4 (0-2) % Lymph # (Auto) 2.3 (1.2-4.9) X10*3/uL [place] # (Auto) 0.6 (0.1-1.2) X10*3/uL Eos # (Auto) 0.2 (0.0-0.4) X10*3/uL Baso # (Auto) 0.1 (0.0-0.2) X10*3/uL Abs Immat Gran (auto) 0.00 (0.00-0.03) X10*3/uL Absolute Neuts (auto) 1.2 L (2.0-8.3) x10*3/uL Absolute Nucleated RBC 0.000 (0.0-0.012) X10*3/uL Nucleated RBC % (auto) 0.0 (0.0-0.2) /100WBC Sodium 140 (135-145) mmol/L Potassium 4.0 (3.3-5.1) mmol/L Chloride 105 (96-108) mmol/L Carbon Dioxide 27 (22-29) mmol/L Anion Gap 12 (12-20) BUN 17 H (9-16) mg/dL Creatinine 0.94 (0.5-1.4) mg/dL Estim Creat Clear Calc 65.6 Estimated GFR > 60 Random Glucose 77 (60-115) mg/dL Calcium 10.0 (8.4-10.2) mg/dL Total Bilirubin 0.4 (0.0-1.0) mg/dL AST 43 H (5-37) U/L ALT 52 H (0-40) U/L Alkaline Phosphatase 47 (39-117) U/L Total Protein 7.6 (6.5-8.0) g/dL Albumin 4.1 (3.5-5.0) g/dL Influenza Type A (PCR) NEGATIVE (Negative) Influenza Type B (PCR) NEGATIVE (Negative) RSV RNA Qual (PCR) NEGATIVE (Negative) SARS-CoV-2 RNA (RT-PCR) NEGATIVE (Negative) S. pyogenes GrpA KEVON Negative (Negative) Independent Interpretation I performed an independent interpretation of an: EKG (Sinus bradycardia at 48 bpm, normal axis deviation, incomplete RBBB.) and Plain X-Ray (Chest: No acute abnormality of the chest) Radiology Impression Discussion of test interpretation with radiology: I have reviewed the radiologist's reading. Discharge Plan Discharge Clinical Impression: Asthma exacerbation, Hypoxia Patient Disposition: Admitted As Inpatient Prescriptions: No Action gabapentin 600 mg tablet 600 mg feeding tube TID Qty: 20 0RF clonazepam 1 mg tablet 1 mg feeding tube DAILY Qty: 10 0RF amlodipine 5 mg tablet 5 mg feeding tube DAILY Qty: 30 0RF mirtazapine 30 mg tablet 60 mg feeding tube BEDTIME Qty: 20 0RF Biktarvy 50-200-25 mg tablet 1 tab PO DAILY Qty: 14 0RF Rx Instructions: Ok to crush and give via feeding tube tramadol 50 mg tablet 50 mg feeding tube BID PRN (Reason: Pain (Scale Score 7-10)) risperidone 3 mg tablet 3 mg feeding tube BEDTIME diphenhydramine HCl [Banophen] 25 mg tablet 50 mg feeding tube BEDTIME ferrous gluconate 324 mg (38 mg iron) tablet 324 mg feeding tube BID calcium carbonate-vitamin D3 600 mg-20 mcg (800 unit) tablet 1 tab feeding tube BID@1200,1800 cefuroxime axetil 500 mg tablet 500 mg feeding tube BID 10 Days Qty: 20 0RF metronidazole 500 mg tablet 500 mg feeding tube BID 7 Days Qty: 14 0RF omeprazole 10 mg Capsule,Delayed Release(Dr/Ec) 10 mg feeding tube DAILY Rocklatan 0.02-0.005 % Drops 1 drp OPHTHALMIC (EYE) QPM albuterol-budesonide 90-80 mcg/actuation Hfa Aerosol Inhaler 2 inh INHALATION Q6H PRN (Reason: Wheezing) fluticasone propion-salmeterol [Advair HFA] 230-21 mcg/actuation HFA aerosol inhaler 2 puff inhalation BID brimonidine-timolol 0.2-0.5 % drops 1 drp ophthalmic (eye) BID cefuroxime axetil 500 mg tablet 500 mg feeding tube Q12H 7 Days Qty: 14 0RF metronidazole 500 mg tablet 500 mg feeding tube BID 7 Days Qty: 14 0RF Print Language: [place] Timorese
--- NOTE | 2024-03-06 20:28 | ECG_ITS ---
Test Reason : BRADYCARDIA Blood Pressure : / mmHG Vent. Rate : 048 BPM Atrial Rate : 048 BPM P-R Int : 182 ms QRS Dur : 110 ms QT Int : 464 ms P-R-T Axes : 079 072 065 degrees QTc Int : 414 ms Sinus bradycardia Incomplete right bundle branch block Borderline ECG When compared with ECG of 15-FEB-2024 19:38, No significant change was found Referred By: Daljit Younger Electronically Signed By:ZHANG OCHOA MD
[2024-03-06 20:30] VITALS: BP 105/71; PULSE 53; RESP 15; TEMP 36.4; O2SAT 92
[2024-03-06] MEDS: Albuterol/Iprat 2.5/0.5MG 3 ML AMPUL.NEB INHALE (21:03)
[2024-03-06 21:04] VITALS: PULSE 49; RESP 18; O2SAT 88
[2024-03-06] MEDS: methylPREDNISolone Sod Succ 125 MG/2 ML VIAL IVPUSH (21:20)
[2024-03-06 23:09] VITALS: BP 107/70; PULSE 56; RESP 16; TEMP 36.4; O2SAT 92
--- NOTE | 2024-03-06 23:19 | MHC.EDTECH ---
Ambulated with Pt to bathroom. Pt had steady gait, to and from bathroom. Pt assisted to stretcher, warm blankets, vital signs taken.
[2024-03-06] MEDS: traMADoL HCL 50 MG TABLET PO (23:21)
[2024-03-07 03:01] LABS: Venous Blood Gas Refer to POC result
[2024-03-07 03:03] LABS: VBG Base Excess 3.6 mmol/L; VBG HCO3 27 mmol/L (22-26); VBG pCO2 40 mmHg; VBG pH 7.44 (7.32-7.43); VBG pO2 129 mmHg
[2024-03-07 04:35] VITALS: PULSE 51; RESP 14; O2SAT 97
--- NOTE | 2024-03-07 05:02 | P.HPHOSP_ITS ---
History of Present Illness Date of Service: 03/07/24 Attending physician on admission: Herbie Rao Chief Complaint: Headache Benjamin Fall is a 58 years old man with past medical history significant for asthma on home oxygen, s/p decortication due loculated pleural effusion, HFrEF (EF 40-45%; TTE Jun 2023), HIV on HAART, dysphagia s/p G-tube placement, chronic hep C, depression and essential hypertension was brought to the emergency department via EMS and sent by DIESEL ENGINEER due to headache. HPI was obtained from ED provider and sharp as the patient was quite lethargic and weak. It seems like the patient has been having headache and sore throat for the last 2 days. According to ED physician, the patient O2 sats have been between 88 - 92% on room air in the ED and that the patient needs to be admitted for asthma exacerbation and hypoxia. The patient uses oxygen at home. Blood workup is unchanged from prior. Venous blood gas showed no respiratory acidosis. CXR is negative. Head CT scan showed acute acute intracranial abnormalities. ECG showed sinus bradycardia, heart rate 48 beats per minute. Incomplete right bundle branch block. ED tx: Solu-Medrol 125 mg IV, DuoNeb x1 and tramadol 50 mg PO. Review of Systems 2 Review of Systems: Yes Unobtainable due to mental condition and Unobtainable due to mental status PMFSH Medical History Asthma Dysphagia Adult failure to thrive Adult failure to thrive Multiple rib fractures History of empyema of pleura (01/05/23) Hypertension Closed fracture of leg Hepatitis C Kidney stones Pleuritic chest pain Pneumonia Substance abuse Hemorrhoids Depression HIV (human immunodeficiency virus infection) Asthma Surgical History H/O hemorrhoidectomy Social History Household Members: None Household Members Other:: sister Housing: Apartment Do you presently have visiting nurse or other home services: Yes Alcohol intake: never Patient Tobacco Use Status: Former Tobacco user Tobacco use type: Cigarette Smoked in Last 30 Days: No e-Cigarette/Vaping Use: Never Used Second Hand Smoke Exposure: No Use of substances other than those prescribed or required for medical reasons: No Substance Use Type: Crack/Cocaine Advance Directives: Yes Advance Directives on File: Yes Advance Directives Date on File: 04/25/21 Do you have a plan to hurt others: No Plan Nutrition Risks: No Nutritional Risk service: No Current occupational status: disabled Meds Allergies Allergy/AdvReac Type Severity Reaction Status Date / Time Seasonal Allergies Allergy Intermediate Eye Verified 03/06/24 17:47 Drainage codeine Allergy Mild Rash Verified 03/06/24 17:47 [From Tylenol-Codeine #3] levofloxacin [From Levaquin] Allergy Mild Rash Verified 03/06/24 17:47 metoclopramide [From Reglan] Allergy Mild Rash Verified 03/06/24 17:47 acetaminophen Allergy Unknown Unknown Verified 03/06/24 17:47 [Tylenol-Codeine #3] Penicillins [PENICILLINS] Allergy Unknown Rash Verified 03/06/24 17:47 ibuprofen [From Motrin] AdvReac Unknown Reflux Verified 03/06/24 17:47 Active Medications: Current Medications Acetaminophen (Acetaminophen 325 Mg Tablet) 975 mg PO Q6H PRN PRN Reason: Pain, Mild (Pain Scale 1-3), fever or headache Albuterol Sulfate (Albuterol Sulfate (0.083%) 2.5 Mg/3 Ml Vial.Neb) 2.5 mg INHALE Q4H PRN PRN Reason: Shortness of Breath/Wheezing Heparin Sodium (Porcine) (Heparin Sodium,Porcine 5,000 Unit/Ml Vial) 5,000 unit SUBCUT Q8H [facility] Sodium Chloride (0.9 % Sodium Chloride Flush 3 Ml Syringe) 3 ml IVFLUSH QSHIFT [facility] Home Medications ?Medication ?Instructions ?Recorded ?Confirmed ?Last Taken ?Type brimonidine 0.2 %-timolol 0.5 % 1 drp ophthalmic (eye) BID 06/01/23 01/10/24 12/15/23 History eye drops fluticasone propionate 230 2 puff inhalation BID 06/01/23 01/10/24 12/15/23 History mcg-salmeterol 21 mcg/actuation HFA inhaler (Advair HFA) calcium carbonate 600 mg-vitamin 1 tab feeding tube BID@1200,1800 12/16/23 01/10/24 12/15/23 History D3 20 mcg (800 unit) tablet diphenhydramine HCl 25 mg tablet 50 mg feeding tube BEDTIME 12/16/23 01/10/24 12/15/23 History (Banophen) ferrous gluconate 324 mg (38 mg 324 mg feeding tube BID 12/16/23 01/10/24 12/15/23 History iron) tablet risperidone 3 mg tablet 3 mg feeding tube BEDTIME 12/16/23 01/10/24 12/15/23 History tramadol 50 mg tablet 50 mg feeding tube BID PRN Pain 12/16/23 01/10/24 Unknown History (Scale Score 7-10) albuterol 90 mcg-budesonide 80 2 inh inhalation Q6H PRN Wheezing 01/10/24 01/10/24 Unknown History mcg/actuation HFA aerosol inhaler netarsudil 0.02 %-latanoprost 1 drp ophthalmic (eye) QPM 01/10/24 01/10/24 Unknown History 0.005 % eye drops (Rocklatan) omeprazole 10 mg capsule,delayed 10 mg feeding tube DAILY 01/10/24 01/10/24 Unknown History release Physical Exam 2 Vital Signs and Narrative: Vital Signs: Last Vital Signs Temp 97.6 F 03/06/24 23:09 Pulse 51 03/07/24 04:35 Resp 14 03/07/24 04:35 BP 107/70 03/06/24 23:09 Pulse Ox 97 03/07/24 04:35 O2 Del Method Nasal Cannula 03/07/24 04:35 O2 Flow Rate 2 03/07/24 04:35 BMI result Body Mass Index 19.5 Constitutional - Lethargic but easy to arouse. Chronically ill. Cachectic. HEENT - PERRL, EOMI Cardiovascular - S1S2, RRR, No edema Respiratory - Normal lung expansion, Normal respiratory effort, No respiratory distress, CTA bilaterally Gastrointestinal - NT / ND; +BS; No rebound or guarding Extremities - no calf tenderness bilaterally, no swelling Musculoskeletal - generalized muscular atrophy. Skin - Warm/Dry Neurological -Lethargic. No focal weakness. Psychological - Depressed affect Results Labs 03/06/24 17:57 03/06/24 17:57 Labs: Laboratory Results - last 24 hr 03/06/24 03/07/24 17:57 02:55 MCV 96.9 MCH 33.4 H MCHC 34.5 RDW 13.1 Plt Count 169 MPV 12.4 Immature Gran % (Auto) 0.0 Neut % (Auto) 28.1 L Lymph % (Auto) 52.9 H [place] % (Auto) 13.4 H Eos % (Auto) 4.2 H Baso % (Auto) 1.4 Lymph # (Auto) 2.3 [place] # (Auto) 0.6 Eos # (Auto) 0.2 Baso # (Auto) 0.1 Abs Immat Gran (auto) 0.00 Absolute Neuts (auto) 1.2 L Absolute Nucleated RBC 0.000 Nucleated RBC % (auto) 0.0 VBG pH 7.44 H VBG pCO2 40 VBG pO2 129 VBG HCO3 27 H VBG O2 Saturation 100.0 VBG Base Excess 3.6 Anion Gap 12 Estim Creat Clear Calc 65.6 Estimated GFR > 60 Random Glucose 77 Calcium 10.0 Total Bilirubin 0.4 AST 43 H ALT 52 H Alkaline Phosphatase 47 Total Protein 7.6 Albumin 4.1 Influenza Type A (PCR) NEGATIVE Influenza Type B (PCR) NEGATIVE RSV RNA Qual (PCR) NEGATIVE SARS-CoV-2 RNA (RT-PCR) NEGATIVE S. pyogenes GrpA KEVON Negative Imaging Radiologist's Impressions: Impressions Chest X-Ray 03/06/24 19:48 IMPRESSION: No acute abnormality of chest. Head CT 03/07/24 02:41 IMPRESSION: No acute intracranial hemorrhage or territorial loss of oliveira-white differentiation. Assessment and Plan (1) Asthma exacerbation: Qualifiers: Asthma severity: unspecified severity Asthma persistence: unspecified Qualified Code(s): J45.901 - Unspecified asthma with (acute) exacerbation Status: Acute (2) Bradycardia: Status: Acute Plan Benjamin Fall is a 58 y/o man admitted with: * Acute exacerbation of asthma. Admit to telemetry. Continue bronchodilator therapy. Supplemental oxygen to keep O2 sats > 90%. Start therapy with azithromycin 500 mg IV daily. * Dysphagia. Continue feeding when patient is more alert. * Bradycardia. Seems to be chronic. Telemetry. * Headache. Head CT scan negative. Acetaminophen as needed. * Essential hypertension. Continue home medications. * History of HIV. Viral load undetectable and CD4 secondary to a 7 in 09/29/2023. Continue Biktarvy. * Depression anxiety. Continue home medications. * Protein calorie malnutrition. BMI 19.5 kg/m2. Continue enteral nutrition when able. * HFrEF. Not decompensated. * History of decortication. DVT prophylaxis: Heparin Code status: Full Patient will need hospitalization for at least 2 midnight for acute exacerbation of asthma treatment with supplemental oxygen, bronchodilator therapy, IV antibiotics and IV steroids. Quality Stroke Does the patient have a stroke diagnosis?: No VTE Prior VTE?: No VTE Risk Level:: Medical - moderate - high VTE Device Contraindication: Treatment Not Indicated VTE Drug Contraindication: N/A - Med Ordered
[2024-03-07] MEDS: Azithromycin 500 MG in 0.9 % Sodium Chloride 250 ML 125 MG IV (05:47)
[2024-03-07 05:55] VITALS: BP 100/64; PULSE 57; RESP 20; TEMP 21; O2SAT 95
[2024-03-07 05:58] VITALS: BMI 19.2
[2024-03-07] MEDS: 0.9 % Sodium Chloride Flush 3 ML SYRINGE IVFLUSH ×3 (07:33→20:18)
[2024-03-07 08:00] VITALS: BP 118/76; PULSE 67; RESP 18; TEMP 36; O2SAT 94
[2024-03-07] MEDS: Heparin Sodium,Porcine 5,000 UNIT/ML VIAL 5000 UNIT SUBCUT ×2 (08:21→16:29)
[2024-03-07] MEDS: traMADoL HCL 50 MG TABLET G-TUBE ×3 (08:22→21:35)
--- NOTE | 2024-03-07 08:55 | PHA.MEDREC ---
Pharmacy Consult ? Medication Reconciliation Pharmacy has completed the medication reconciliation. Spoke to patient to confirm meds. patient had a hard time talking but was able to node and say yes and no. patient said no to being on Brimonide-Timolol 1 drp (eye) bid, Advair HFA 2 puffs bid, Roclatan 1 drp (eye) qpm. Patient also said no to Fluconazole 100 mg daily, however the last fill date was 02-27-24 for 14 days. patient also stated he did start serostim inj yet.
[2024-03-07 09:24] LABS: MANUAL DIFF FLAG NO
[2024-03-07 09:29] LABS: Basophils Percent Auto 0.2 % (0-2); Hematocrit 45.3 % (42.0-52.0); Hemoglobin 15.6 g/dl (14.0-18.0); Imm Gran Abs Auto 0.02 X10*3/uL (0.00-0.03); Imm Gran Pct Auto 0.5 % (0.0-0.4); Lymphocytes Absolute Auto 0.8 X10*3/uL (1.2-4.9); Lymphocytes Percent Auto 18.8 % (20-40); Mean Corpuscular HGB Conc 34.4 g/dl (31.0-36.0); Mean Corpuscular Hemoglobin 33.5 pg (27.0-33.0); Mean Corpuscular Volume 97.2 fL (80.0-98.0); Mean Platelet Volume 12.5 fL (9.4-12.4); Neutrophils Absolute Auto 3.3 x10*3/uL (2.0-8.3); Neutrophils Percent Auto 79.5 % (45-73); Platelet Count 171 X10*3/uL (160-400); Red Blood Count 4.66 X10*6/uL (4.60-5.80); Red Cell Distribution Width 12.9 % (11.0-16.0); White Blood Count 4.1 X10*3/uL (4.8-10.8)
[2024-03-07 09:45] LABS: Anion Gap 20 (12-20); Blood Urea Nitrogen 18 mg/dL (9-16); Calcium 9.8 mg/dL (8.4-10.2); Carbon Dioxide 22 mmol/L (22-29); Chloride 103 mmol/L (96-108); Creatinine Clr Calc Pharmacy 61.8; Estimated Glomerular Filt Rate > 60; Glucose Random 120 mg/dL (60-115); Potassium 4.7 mmol/L (3.3-5.1); Sodium 140 mmol/L (135-145)
[2024-03-07 10:02] VITALS: BMI 19.2
--- NOTE | 2024-03-07 10:16 | MHC.CM.PN ---
Addendum entered by Suki Webb RN 03/07/24 10:20: CM CONTACTED PT'S [facility] THEY ARE NOT ON [facility] DC SUMMARY WILL NEED TO BE FAXED ONCE MEDICALLY CLEARED FAX: [phone], PHONE [phone] Original Note: IMM 03/07/24, PT ACUTE ASTHMA EXAC, CM MET W/PT VIA BACK OFFICE MEDICAL ASSISTANT, PT REPORTS HE LIVES W/HIS CHART CALCULATOR [place] [phone], USES A WALKER, [employer] AND [employer] SUPPLIES FROM [employer], BID [facility] FOR MEDS W/[facility] AND 19 CHART CALCULATOR HRS/WKLY THROUGH [employer]. HCP ON FILE AND PCP IS RICHARD JUNIOR MD, TASK SENT TO CM OFFICE
--- NOTE | 2024-03-07 11:01 | MHC.CLN ---
NUTRITION CURRENTLY NPO. KNOWN FROM PRIOR ADMISSIONS. RECEIVES HOME TUBE FEEDING. START JEVITY TUBE FEEDING WHEN ABLE. MAX GOAL RATE JEVITY 1.0 AT 65 ML PER HOUR, FREE WATER FLUSHES 120 ML Q 6 HOURS. PROVIDES 1654 KCALS (30.7 KCALS/KG); 69 G PROTEIN (1.28 G/KG); 1783 ML FREE WATER FROM FORMULA AND FLUSH (33 ML/KG). START TUBE FEED AT 20 ML PER HOUR, INCREASE 10 ML EVERY 4 HOURS UNTIL MAX GOAL RATE OF 65 ML PER HOUR IS ACHIEVED. CHECK RESIDUALS EVERY 4 HOURS, HOLD FOR 2 HOURS IF >250 ML. QUALIFIES MODERATELY MALNOURISHED IN THE CONTEXT OF CHRONIC ILLNESS. FOLLOW FOR DIET ADVANCEMENT, TUBE FEED TOLERANCE, RESIDUALS, AND LYTES. SEE CLINICAL NUTRITION ASSESSMENT 03/07/24.
[2024-03-07] MEDS: Bictegrav/Emtricit/Tenofov Ala TABLET 1 TAB PO (11:47)
--- NOTE | 2024-03-07 13:05 | PM.EVENT ---
Event Note Date of Service: 03/07/24 Event Note: Seen and evaluated breathing better, less wheezes , looks weak and fatigue Continue IV steroids and Azithromycin Wean O2 down as tolerated Time Spent With Patient Time: Total time managing care of this patient today ____ minutes.
[2024-03-07] MEDS: Chlorhexidine Gluc Oral Rinse 15 ML MOUTHWASH BUCCAL ×3 (13:57→20:18)
[2024-03-07] MEDS: methylPREDNISolone Sod Succ 40 MG/ML VIAL IVPUSH (13:58)
[2024-03-07] MEDS: Gabapentin 600 MG TABLET G-TUBE ×2 (14:00→20:17)
[2024-03-07 14:28] VITALS: BP 118/76; PULSE 67; O2SAT 94
[2024-03-07 15:17] VITALS: BP 117/73; PULSE 54; RESP 13; TEMP 36.2; O2SAT 94
[2024-03-07 19:38] VITALS: BP 105/56; PULSE 55; RESP 18; TEMP 36.3; O2SAT 93
[2024-03-07] MEDS: diphenhydrAMINE HCL 25 MG CAPSULE 50 MG G-TUBE (20:17)
[2024-03-07] MEDS: Mirtazapine 30 MG TABLET 60 MG G-TUBE (20:17)
[2024-03-07] MEDS: risperiDONE 3 MG TABLET G-TUBE (20:18)
--- NOTE | 2024-03-07 20:49 | PC.NURSE ---
THis RN assumed care at 1900, Pt is Aox3, reporting 8/10 migraine. BSx4: no pain with palpation. Respirations even and unlabored, expiratory wheezing noted. Skin intact: G-tube intact to mid upper abdomen, residual at 8pm was 0, feeding increased by 10, running at 40ml/hr. Pt is calm cooperative, with no apparent distress.
[2024-03-08] MEDS: Heparin Sodium,Porcine 5,000 UNIT/ML VIAL 5000 UNIT SUBCUT ×2 (01:16→09:25)
[2024-03-08 04:00] VITALS: BP 97/60; PULSE 56; RESP 16; TEMP 36.3; O2SAT 93
[2024-03-08] MEDS: Azithromycin 500 MG in 0.9 % Sodium Chloride 250 ML 125 MG IV (04:30)
[2024-03-08] MEDS: traMADoL HCL 50 MG TABLET G-TUBE (05:55)
[2024-03-08 06:28] LABS: Hematocrit 38.9 % (42.0-52.0); Hemoglobin 13.7 g/dl (14.0-18.0); Mean Corpuscular HGB Conc 35.2 g/dl (31.0-36.0); Mean Corpuscular Hemoglobin 33.6 pg (27.0-33.0); Mean Corpuscular Volume 95.3 fL (80.0-98.0); Mean Platelet Volume 12.6 fL (9.4-12.4); Platelet Count 170 X10*3/uL (160-400); Red Blood Count 4.08 X10*6/uL (4.60-5.80); Red Cell Distribution Width 12.7 % (11.0-16.0); White Blood Count 9.7 X10*3/uL (4.8-10.8)
[2024-03-08 06:43] LABS: Anion Gap 12 (12-20); Blood Urea Nitrogen 18 mg/dL (9-16); Carbon Dioxide 25 mmol/L (22-29); Chloride 104 mmol/L (96-108); Creatinine Clr Calc Pharmacy 72.1; Estimated Glomerular Filt Rate > 60; Glucose Random 166 mg/dL (60-115); Potassium 4.1 mmol/L (3.3-5.1); Sodium 137 mmol/L (135-145)
[2024-03-08 07:36] VITALS: BP 104/62; PULSE 57; RESP 12; TEMP 36; O2SAT 96
[2024-03-08] MEDS: 0.9 % Sodium Chloride Flush 3 ML SYRINGE IVFLUSH (09:20)
[2024-03-08] MEDS: Omeprazole/Na Bicarb Oral Susp 20 MG/10 ML UD Cup 10 MG G-TUBE (09:20)
[2024-03-08] MEDS: Chlorhexidine Gluc Oral Rinse 15 ML MOUTHWASH BUCCAL (09:21)
[2024-03-08 09:24] VITALS: BP 102/63; PULSE 54
[2024-03-08] MEDS: Bictegrav/Emtricit/Tenofov Ala TABLET 1 TAB PO (09:24)
[2024-03-08] MEDS: clonazePAM 1 MG TABLET G-TUBE (09:24)
[2024-03-08] MEDS: Ferrous Sulfate 324 MG TABLET.DR PO (09:24)
[2024-03-08] MEDS: Gabapentin 600 MG TABLET G-TUBE (09:25)
--- NOTE | 2024-03-08 10:14 | P.F2F_ITS ---
Service Date Service Date: 03/08/24 Encounter Date of encounter: 03/08/24 Reasons for Services Signs and symptoms assessed: physical deconditioning Reason for physical therapy: home safety and mobility and therapeutic exercises Homebound: Leaving the home is medically contraindicated at this time without the asist of a device and/or another person due th the listed conditions above and below. Reason homebound: unsteady gait / fall risk Certification: Based on the above findings, I certify that this patient is confined to the home and needs intermittent [facility] care, physical therapy and/or speech therapy, or continues to need occupational therapy. The patient is under my care, and I have initiated the establishment of the plan of care. The patient will be followed by a physician who will periodically review the plan of care. Time Spent With Patient Time: Total time managing care of this patient today ____ minutes.
--- NOTE | 2024-03-08 10:15 | PM.DS ---
DS: Providers Provider Date of Service: 03/08/24 Date of admission: 03/07/24 03:40 Primary care physician: Terese Keenan MD DS: Diagnosis Discharge Diagnosis (1) Asthma exacerbation: Status: Acute (2) Bradycardia: Status: Acute (3) Hypoxia: Status: Acute DS: Summary Hospital Course Hospital Course: Admission note HPI Benjamin Fall is a 58 years old man with past medical history significant for asthma on home oxygen, s/p decortication due loculated pleural effusion, HFrEF (EF 40-45%; TTE Jun 2023), HIV on HAART, dysphagia s/p G-tube placement, chronic hep C, depression and essential hypertension was brought to the emergency department via EMS and sent by BUSINESS PROCESS MANAGER due to headache. HPI was obtained from ED provider and sharp as the patient was quite lethargic and weak. It seems like the patient has been having headache and sore throat for the last 2 days. According to ED physician, the patient O2 sats have been between 88 - 92% on room air in the ED and that the patient needs to be admitted for asthma exacerbation and hypoxia. The patient uses oxygen at home. Blood workup is unchanged from prior. Venous blood gas showed no respiratory acidosis. CXR is negative. Head CT scan showed acute acute intracranial abnormalities. ECG showed sinus bradycardia, heart rate 48 beats per minute. Incomplete right bundle branch block. ED tx: Solu-Medrol 125 mg IV, DuoNeb x1 and tramadol 50 mg PO. Hospital course The patient was admitted for acute on chronic hypoxia secondary to acute asthma exacerbation as CXR was negative for any infiltrates. treated with IV antibiotics of Azithromycin along with bronchodilator nebulizers and IV steroids with improvement as he was weaned down to 2L of O2 his home dose and was able to participate with PT who recommended short term rehablitation but the patient prefers to go back home where he has a BUSINESS PROCESS MANAGER and do PT through [facility]. Will continue Prednisone and Azithromycin on discharge. Discharge plan Continue Prednisone for 3 more days Continue Continue Azithromycin as prescribed Use home inhalers Physical therapy at home. The patient made quicker than expected recovery and will not need 2 overnight hospital stay. Time Attestation Discharge Coordination Time (in mins): 38 Quality: Safe Use of Opioids Does Pt have an Active Cancer Diagnosis on the Problem List?: No Quality: Stroke Does the patient have a stroke diagnosis?: No Physical Exam Vital Signs: Vital Signs: Last Vital Signs Temp 96.8 F 03/08/24 07:36 Pulse 54 03/08/24 09:24 Resp 12 03/08/24 07:36 BP 102/63 03/08/24 09:24 Pulse Ox 96 03/08/24 07:36 O2 Del Method Nasal Cannula 03/08/24 07:36 O2 Flow Rate 2 03/08/24 07:36 BMI result Body Mass Index 19.2 Const: Other: Constitutional : Awake, interactive, looks frail and weak, not in distress Neck : Normal inspection, Supple Cardiovascular : RRR, no JVP, no lower extremity edema Respiratory : good bilateral air entry, no crackles, wheezes or rhonchi Gastrointestinal: soft, lax, Normal bowel sounds, Non tender Skin : Warm, Dry Neurological : Alert & oriented x3, No focal deficit DS: Data Data Completed and Pending Completed studies during hospitalization [Text1]: Procedures Drainage of Left Lung with Drainage Device, Open Approach (12/30/22) Excision of Esophagogastric Junction, Via Natural or Artificial Opening Endoscopic, Diagnostic (07/16/23) Excision of Stomach, Pylorus, Via Natural or Artificial Opening Endoscopic, Diagnostic (07/16/23) Excision of Upper Esophagus, Via Natural or Artificial Opening Endoscopic, Diagnostic (07/16/23) Insertion of Endotracheal Airway into Trachea, Via Natural or Artificial Opening (12/30/22) Insertion of Feeding Device into Stomach, Percutaneous Approach (07/27/23) Insertion of Infusion Device into Superior Vena Cava, Percutaneous Approach (12/30/22) Insertion of Infusion Device into Upper Vein, Percutaneous Approach (07/16/23) Introduction of Nutritional Substance into Upper GI, Via Natural or Artificial Opening (07/27/23) Introduction of Vasopressor into Central Vein, Percutaneous Approach (12/30/22) Release Left Lung, Open Approach (12/30/22) Reposition Left Tibia with Internal Fixation Device, Open Approach (02/12/22) Respiratory Ventilation, 24-96 Consecutive Hours (12/30/22) Ultrasonography of Superior Vena Cava, Guidance (12/30/22) Labs on day of discharge: Laboratory Results - last 24 hr 03/08/24 05:37 WBC 9.7 RBC 4.08 L Hgb 13.7 L Hct 38.9 L MCV 95.3 MCH 33.6 H MCHC 35.2 RDW 12.7 Plt Count 170 MPV 12.6 H Absolute Nucleated RBC 0.000 Nucleated RBC % (auto) 0.0 Sodium 137 Potassium 4.1 Chloride 104 Carbon Dioxide 25 Anion Gap 12 BUN 18 H Creatinine 0.84 Estim Creat Clear Calc 72.1 Estimated GFR > 60 Random Glucose 166 H Calcium 9.0 D Imaging Chest x-ray: Radiologist's impression: ITS Impressions Chest X-Ray 03/06/24 19:48 IMPRESSION: No acute abnormality of chest. Head CT 03/07/24 02:41 IMPRESSION: No acute intracranial hemorrhage or territorial loss of oliveira-white differentiation. Discharge Plan Discharge Anticipated Discharge Date/Time: 03/08/24 10:10 Patient Disposition: Home Health Service Discharge Diagnosis: Asthma exacerbation Referrals: [facility] [Outside] Terese Rivera MD [Primary Care Provider] - 1 Week Discharge Medications: New azithromycin 250 mg tablet 250 mg PO DAILY 3 Days Qty: 3 0RF Rx Instructions: start on day 2 of therapy prednisone 20 mg tablet 40 mg PO DAILY Qty: 6 0RF Continued gabapentin 600 mg tablet 600 mg feeding tube TID Qty: 20 0RF clonazepam 1 mg tablet 1 mg feeding tube DAILY Qty: 10 0RF amlodipine 5 mg tablet 5 mg feeding tube DAILY Qty: 30 0RF mirtazapine 30 mg tablet 60 mg feeding tube BEDTIME Qty: 20 0RF Biktarvy 50-200-25 mg tablet 1 tab PO DAILY Qty: 14 0RF Rx Instructions: Ok to crush and give via feeding tube tramadol 50 mg tablet 50 mg feeding tube BID PRN (Reason: Pain (Scale Score 7-10)) risperidone 3 mg tablet 3 mg feeding tube BEDTIME diphenhydramine HCl [Banophen] 25 mg tablet 50 mg feeding tube BEDTIME ferrous gluconate 324 mg (38 mg iron) tablet 324 mg feeding tube BID calcium carbonate-vitamin D3 600 mg-20 mcg (800 unit) tablet 1 tab feeding tube BID@1200,1800 omeprazole 10 mg Capsule,Delayed Release(Dr/Ec) 10 mg feeding tube DAILY@0630 propranolol 120 mg capsule,extended release 24hr 120 mg PO DAILY albuterol sulfate [Ventolin HFA] 90 mcg/actuation HFA aerosol inhaler 2 puff inhalation Q6H PRN (Reason: wheezing) chlorhexidine gluconate 0.12 % mouthwash 15 ml PO QID Discharge Orders: Discharge Order (Routine); Ordered 03/08/24 Ordered By: Long Abel Diet: Advance to usual diet Activity on Discharge: As tolerated Stand Alone Forms: Patient Portal Discharge page Print Language: Welsh Care Plan Goals: Continue Prednisone for 3 more days Continue Continue Azithromycin as prescribed Use home inhalers Physical therapy at home. Health Concerns: Read below Plan of Treatment: Read below Assessment: Read below Discharge Date/Time: 03/08/24 12:45
--- NOTE | 2024-03-08 10:47 | MHC.CM.PN ---
Addendum entered by Emily Foster 03/08/24 14:26: CM CALLED [employer], [place], AND INFORMED HER OF NEW MEDS THAT WILL NEED TO BE PICKED UP AT [facility] PER HER REQUEST Original Note: PT WILL DC HOME TODAY WITH RESUMPTION OF [facility], [facility], AND [facility] NOTIFIED OF DC AND NEED TO ADD PT TO PTS SERVICES [facility] TO TRANSPORT
== END 2024-03-08 12:45 | disposition home health service (06) | DRG 202 ==
LOC: HO.ED 23:41 → HO.EDOVER 03-07 04:17 → HO.S3 03-07 04:25
PROVIDERS: Admitting Provider Internal Medicine; Emergency Provider Emergency Medicine; PCP Student in an Organized Health Care Education/Training Program; Visit Provider Student in an Organized Health Care Education/Training Program
DX: J45.901 Unspecified asthma with (acute) exacerbation (principal); B20 Human immunodeficiency virus [HIV] disease; I50.22 Chronic systolic (congestive) heart failure; E46 Unspecified protein-calorie malnutrition; Z68.1 Body mass index [BMI] 19.9 or less, adult; R09.02 Hypoxemia; I11.0 Hypertensive heart disease with heart failure; R13.10 Dysphagia, unspecified; F41.9 Anxiety disorder, unspecified; F32.A Depression, unspecified; B18.2 Chronic viral hepatitis C; R00.1 Bradycardia, unspecified; Z99.81 Dependence on supplemental oxygen; Z93.1 Gastrostomy status; Z20.822 Contact with and (suspected) exposure to COVID-19; Z87.891 Personal history of nicotine dependence; Z79.899 Other long term (current) drug therapy
CPT/HCPCS: 0241U; 36415; 70450; 71045; 80048; 80053; 82803; 85025; 85027; 87651; 93005; 94640; 97162; 99285; J0456; J1644; J2919

== ENCOUNTER → 2024-03-06 20:28 | Outpatient (BNV) | payer OTHER, SELFPAY | PROVIDERS: Admitting Provider Internal Medicine; Emergency Provider Emergency Medicine; Visit Provider Internal Medicine Cardiovascular Disease | DX: R00.1 Bradycardia, unspecified (principal); I45.10 Unspecified right bundle-branch block | CPT/HCPCS: 93010 ==

== ENCOUNTER → 2024-03-07 03:40 | Outpatient (BNV) | payer OTHER, SELFPAY | PROVIDERS: Admitting Provider Internal Medicine; Emergency Provider Emergency Medicine; Visit Provider Internal Medicine | DX: J96.21 Acute and chronic respiratory failure with hypoxia (principal); J45.901 Unspecified asthma with (acute) exacerbation; R00.1 Bradycardia, unspecified | CPT/HCPCS: 99223; 99239; 99499; G0180 ==

== ENCOUNTER 2024-03-15 11:55 | Inpatient (IN) | payer OTHER, SELFPAY ==
[2024-03-15] VITALS (15 sets, daily range): BP systolic 95–135; BP diastolic 62–86; PULSE 58–66; RESP 14–24; TEMP 35.9–36.9; O2SAT 40–99; BMI 18.6
--- NOTE | 2024-03-15 | ECG_ITS ---
Test Reason : DYPSEA Blood Pressure : / mmHG Vent. Rate : 064 BPM Atrial Rate : 064 BPM P-R Int : 180 ms QRS Dur : 110 ms QT Int : 420 ms P-R-T Axes : 075 068 051 degrees QTc Int : 433 ms Normal sinus rhythm Incomplete right bundle branch block Borderline ECG When compared with ECG of 06-MAR-2024 20:44, No significant change was found Referred By: Shawn Adorno Electronically Signed By:Daniel Keller
--- NOTE | ~2024-03-15 | CT_ITS ---
EXAMINATION: CT ANGIOGRAM OF THE CHEST WITH AND WITHOUT CONTRAST (CT PULMONARY ANGIOGRAM FOR PE) CLINICAL INFORMATION: Reason for Exam chest pain, hypoxia COMPARISON: [address] scans of the chest since 10/15/2023 most recently on 02/15/2024 TECHNIQUE: Prior to contrast administration, noncontrast localization images were obtained. Subsequently, multidetector volumetric imaging was performed from the thoracic inlet to below the diaphragms following the administration of 65 mL Omnipaque 350 intravenous contrast. No contrast reaction reported Sagittal, coronal, and MIP oblique sagittal reformatted images were obtained on the CT workstation, uploaded to PACS, and reviewed. This CT examination was performed using dose optimization techniques as appropriate, variously including the following: *Automated exposure control *Adjustment of mA and/or kV according to patient size (this includes techniques or standardized protocols for targeted exams where dose is matched to indication/reason for exam; i.e. extremities or head) *Use of iterative reconstruction technique Total exam dose-length product 280 mGy-cm FINDINGS: QUALITY OF STUDY/CONTRAST BOLUS: Satisfactory. PULMONARY ARTERIES: No pulmonary emboli. THORACIC AORTA: No aneurysm. LUNG: There is new left lower lobe consolidation (6:348). There is worsening of mucus plugging of both left and right lower lobe bronchi (for example 6:279). There is unchanged 1.7 cm groundglass opacity at the right apex. Heart PLEURA: No pleural effusion or pneumothorax. MEDIASTINUM: Normal heart size. No pericardial effusion. No hilar or mediastinal lymphadenopathy. No evidence of septal bowing or right heart strain. CORONARY ARTERY CALCIFICATION: None visualized on this study. CHEST WALL/AXILLA: No axillary or internal mammary lymphadenopathy. OSSEOUS STRUCTURES: No acute or suspicious osseous abnormality. Vertebral compression fractures of midthoracic vertebral bodies again noted. Chronic rib deformities on left again seen. UPPER ABDOMEN: Unremarkable. No reflux of contrast into the hepatic veins to suggest elevated right heart pressures. CT/CT angio chest PE protocol IMPRESSION: 1. No evidence of pulmonary emboli. 2. New left lower lobe consolidation with worsening of mucus plugging of both lower lobe bronchi. Infection and/or aspiration would be considerations. 3. Unchanged 1.7 cm groundglass opacity at the right apex. VTE: negative.
--- NOTE | ~2024-03-15 | FL_ITS ---
EXAMINATION: XR LUMBAR PUNCTURE CLINICAL INFORMATION: Mental status changes, failure to thrive, rule out CSF infection. COMPARISON: None available. TECHNIQUE: Possible complications discussed with patient to include bleeding, infection, headache, CSF leak, and possible but rare nerve root damage. Informed consent was obtained. The patient signed consent. Timeout was performed. Patient was put on the fluoroscopic table in the prone position, and the overlying L3-L4 interlaminar space was identified, marked, prepped and draped in sterile fashion. Overlying skin was numbed with approximately 5 mL percent lidocaine. Subsequently, A 20-gauge quinke spinal needle was introduced into the L3-L4 interlaminar space, and clear CSF was seen at the needle hub. Opening pressure was measured at 8.8 cm H2O, normal. Subsequently, 18 mL of clear CSF was obtained, and sent to the laboratory for analysis. The needle was removed. There were no immediate complications. The patient tolerated the procedure well. FINDINGS: Normal opening pressure. Clear CSF obtained. Sent for laboratory analysis. FLUOROSCOPY TIME: 11 seconds DOSE AREA PRODUCT: 229.4 uGy-m2 (microgray-meter squared) FL/FL guided lumbar puncture LP IMPRESSION: Successful and uneventful lumbar puncture at L3-L4 with 18 mL clear CSF obtained and sent for laboratory analysis. No immediate complications.
--- NOTE | ~2024-03-15 | XR_ITS ---
EXAMINATION: PORTABLE CHEST 1 VIEW CLINICAL INFORMATION: sob. COMPARISON: 03/06/2024. TECHNIQUE: Portable frontal view of the chest was obtained. FINDINGS: The lungs are well expanded. Linear scarring or atelectasis at the left lung base again seen. No focal infiltrate, effusion, edema, or pneumothorax. Cardiac and mediastinal silhouettes are within normal limits for technique. No acute bony abnormality seen. XR/XR chest 1V IMPRESSION: Linear scarring or atelectasis at the left lung base.
--- NOTE | ~2024-03-15 | MR_ITS ---
EXAMINATION: MR BRAIN WITHOUT AND WITH CONTRAST CLINICAL INFORMATION: Generalized weakness. Leukoencephalopathy. COMPARISON: CT head from 03/07/2024. Brain MRI from 10/26/2023. TECHNIQUE: MRI of the brain was obtained using routine sequences without and following the administration of 5 mL of Gadavist intravenous contrast. FINDINGS: No focal restricted diffusion is demonstrated to suggest acute or subacute cerebral ischemia. No evidence of acute or chronic hemorrhagic products on heme-sensitive imaging. Scattered and partially confluent periventricular, deep white matter, and brainstem T2 FLAIR hyperintensities most commonly seen with mild to moderate underlying microangiopathy. Proportional prominence of the ventricles and sulcal spaces without evidence of obstructive hydrocephalus. No abnormal mass effect. No midline shift. Normal appearance of the pituitary gland. Normal positioning of the cerebellar tonsils. Normal arterial and venous vascular flow voids are present. No abnormal contrast enhancement. Normal, homogeneous marrow signal. Mucus retention cyst within the left maxillary sinus. Mild mucosal thickening of the remaining paranasal sinuses. No signal abnormalities within the mastoids. MR/MR head/brain wo/w con IMPRESSION: 1. No acute intracranial abnormalities. No abnormal intracranial enhancement. 2. Mild to moderate chronic white matter changes and generalized cerebral volume loss most commonly seen with microangiopathy.
[2024-03-15] MEDS: Magnesium Sulfate/H2O 2 GM/50 ML PIGGYBACK IV (12:10)
[2024-03-15] MEDS: methylPREDNISolone Sod Succ 125 MG/2 ML VIAL IVPUSH (12:10)
--- NOTE | 2024-03-15 12:15 | ED_ITS ---
HPI - SOB/Dyspnea General Chief Complaint: Dyspnea Stated Complaint: CP SOB Time Seen by Provider: 03/15/24 12:06 Source: EMS and old records reviewed Mode of arrival: EMS Limitations: no limitations History of Present Illness ED Provider: DR. Younger HPI Narrative: 59-year-old male PMH pertinent for asthma on home oxygen, s/p decortication for pleural effusion, HFrEF 40-45%, HIV on HAART, dysphagia s/p G feeding tube, hep C, depression patient was brought in by EMS for shortness of breath patient was found to be 77% on room air patient was given DuoNeb and transported to the hospital on arrival to the the ED patient is in mild respiratory distress O2 sat was 84% on 4 L oxygen that was switch to high-flow oxygen that improved his oxygenation to 94%. Related Data Home Medications ?Medication ?Instructions ?Recorded ?Confirmed calcium carbonate 600 mg-vitamin 1 tab feeding tube BID@1200,1800 12/16/23 03/15/24 D3 20 mcg (800 unit) tablet diphenhydramine HCl 25 mg tablet 50 mg feeding tube BEDTIME 12/16/23 03/15/24 (Banophen) ferrous gluconate 324 mg (38 mg 324 mg feeding tube BID 12/16/23 03/15/24 iron) tablet risperidone 3 mg tablet 3 mg feeding tube BEDTIME 12/16/23 03/15/24 tramadol 50 mg tablet 50 mg feeding tube BID PRN Pain 12/16/23 03/15/24 (Scale Score 7-10) omeprazole 10 mg capsule,delayed 10 mg feeding tube DAILY@0630 01/10/24 03/15/24 release albuterol sulfate 90 mcg/actuation 2 puff inhalation Q6H PRN wheezing 03/07/24 03/15/24 aerosol inhaler (Ventolin HFA) chlorhexidine gluconate 0.12 % 15 ml PO QID 03/07/24 03/15/24 mouthwash propranolol 120 mg capsule,24 120 mg PO DAILY 03/07/24 03/15/24 hr,extended release Previous Rx's ?Medication ?Instructions ?Recorded amlodipine 5 mg tablet 5 mg feeding tube DAILY #30 tabs 08/02/23 bictegravir 50 mg-emtricitabine 1 tab PO DAILY #14 tabs 08/02/23 200 mg-tenofovir alafenam 25 mg tablet (Biktarvy) clonazepam 1 mg tablet 1 mg feeding tube DAILY #10 tabs 08/02/23 gabapentin 600 mg tablet 600 mg feeding tube TID #20 tabs 08/02/23 mirtazapine 30 mg tablet 60 mg (2 x 30 mg) feeding tube 08/02/23 BEDTIME #20 tabs Allergies Allergy/AdvReac Type Severity Reaction Status Date / Time Seasonal Allergies Allergy Intermediate Eye Verified 03/15/24 12:04 Drainage codeine Allergy Mild Rash Verified 03/15/24 12:04 [From Tylenol-Codeine #3] levofloxacin [From Levaquin] Allergy Mild Rash Verified 03/15/24 12:04 metoclopramide [From Reglan] Allergy Mild Rash Verified 03/15/24 12:04 acetaminophen Allergy Unknown Rash Verified 03/15/24 12:04 [Tylenol-Codeine #3] Penicillins [PENICILLINS] Allergy Unknown Rash Verified 03/15/24 12:04 ibuprofen [From Motrin] AdvReac Unknown Reflux Verified 03/15/24 12:04 Review of Systems 2 Review of Systems: All other systems are reviewed and are negative Constitutional: Reports as per HPI and Reports no additional constitutional complaints Eyes: Reports as per HPI and Reports no additional eye complaints Reports system reviewed and no additional complaints, except as documented Cardiovascular: Reports as per HPI and Reports no additional cardiovascular complaints Respiratory: Reports as per HPI and Reports no additional respiratory complaints Gastrointestinal: Reports as per HPI and Reports no additional gastrointestinal complaints Genitourinary: Reports no additional female genitourinary complaints Musculoskeletal: Reports no additional musculoskeletal complaints Skin/Breast: Reports system reviewed and no additional complaints, except as docu Psychiatric: Reports no additional psychiatric complaints Endocrine: Reports no additional endocrine complaints Hematologic/Lymphatic: Reports no additional hematologic/lymphatic complaints Allergic/Immunologic: Reports no additional allergic/immunologic complaints Reports system reviewed and no additional complaints, except as documented and Reports Abnormal speech present [facility] Past Medical History Medical History Asthma Dysphagia Adult failure to thrive Adult failure to thrive Multiple rib fractures History of empyema of pleura (01/05/23) Hypertension Closed fracture of leg Hepatitis C Kidney stones Pleuritic chest pain Pneumonia Substance abuse Hemorrhoids Depression HIV (human immunodeficiency virus infection) Asthma Surgical History H/O hemorrhoidectomy Social History Social History Household Members: None Household Members Other:: sister Housing: Apartment Do you presently have visiting nurse or other home services: Yes Alcohol intake: never Patient Tobacco Use Status: Former Tobacco user Tobacco use type: Cigarette e-Cigarette/Vaping Use: Never Used Second Hand Smoke Exposure: No Substance Use Type: Crack/Cocaine Advance Directives: No Advance Directives Information Provided: No Advance Directives Date on File: 04/25/21 Do you have a plan to hurt others: No Plan service: No Current occupational status: disabled Physical Exam 2 Vital Signs: Vital Signs: Last Vital Signs Temp 96.7 F L 03/15/24 14:22 Pulse 58 03/15/24 14:22 Resp 17 03/15/24 14:22 BP 111/69 03/15/24 14:22 Pulse Ox 90 L 03/15/24 14:22 O2 Del Method High Flow Nasal C annula 03/15/24 14:22 O2 Flow Rate 35 03/15/24 12:50 FiO2 40 03/15/24 12:50 Oxygen Flow Rate 4 03/15/24 12:00 BMI result Body Mass Index 18.6 Vital signs have been reviewed and appear to be correct. Blood pressure elevated. Heart rate normal. Respiratory rate normal. Temperature normal. Oxygen saturation normal. Appearance: Alert. Oriented X3. Mild respiratory acute distress. Head: Normal external exam. Normocephalic. Atraumatic. No [place] signs noted. No raccoon eyes noted Eyes: PERRLA. EOMI. Conjunctiva and sclera normal. Eyelids normal. ENT: TM's Normal. Pharynx normal. Uvula midline. Moist mucous membranes. No trismus noted. No drooling noted. No muffled voice noted. Neck: Normal inspection. Neck supple. FROM. No adenopathy. Thyroid Normal. No meningeal signs. No neck mass noted. CVS: Normal heart rate and rhythm. Heart sound normal. No murmurs noted. Pulses normal throughout. Respiratory: Acute mild respiratory distress. Painless inspiration. Breath sounds normal. No wheezes/rales/rhonchi noted. Chest nontender. No accessory muscle usage noted or decreased air movement noted. Abdomen: Soft and nontender. Bowel sounds normal in all 4 quadrants. No distention noted. No organomegaly noted. No visible injury noted. Back: No CVA tenderness. Full range of motion noted. Skin: Skin warm and dry. Normal skin color. Normal skin turgor. No rashes/lesions/lacerations noted. Extremities: No lower extremity edema. Extremities exhibit normal range of motion. Extremities nontender. Neuro: Oriented X 3. Cranial nerve exam: II-XII are grossly intact No motor deficit. No sensory deficit. Reflexes normal. Course Reevaluation(s) Reevaluation #1: 59-year-old male history of asthma came in with acute asthma exacerbation with hypoxia. Patient now is more coherent and responding better, patient is subjectively feels better, repeat blood gas showing hypoxemia. Will admit the patient. Time: 14:26 Medications Administered Discontinued Medications Generic Name Dose Route Start Last Admin Trade Name Freq PRN Reason Stop Dose Admin Albuterol/Ipratropium 3 ml 03/15/24 14:03 03/15/24 14:05 Albuterol/Iprat 2.5/0.5mg 3 Ml Ampul.Neb INHALE 03/15/24 14:04 3 ml ONCE ONE Administration Albuterol Sulfate 5 mg/ 0 mg 03/15/24 12:20 03/15/24 12:25 Albuterol/Ipratropium 3 ml INHALE 03/15/24 12:21 7.5 each ONCE ONE Administration Magnesium Sulfate 2 gm in 50 mls @ 25 mls/hr 03/15/24 12:05 03/15/24 12:39 Magnesium Sulfate/H2o IV 03/15/24 14:04 Infused ONCE ONE Infusion Doxycycline Hyclate 100 mg/ 250 mls @ 166.67 mls/hr 03/15/24 12:27 03/15/24 14:21 Sodium Chloride IV 03/15/24 13:56 Infused ONCE ONE Infusion Methylprednisolone Sodium Succinate 125 mg 03/15/24 12:05 03/15/24 12:10 Methylprednisolone Sod Succ 125 Mg/2 Ml Vial IVPUSH 03/15/24 12:06 125 mg ONCE ONE Administration Medical Decision Making Differential Diagnosis Differential Diagnoses: The differential diagnosis associated with the presentation includes (Pneumonia, pneumothorax, pleural effusion, asthma exacerbation, electrolyte derangement, severe anemia, CHF, hypoxia.) Admission/Observation Consideration of admission/observation: Escalation of care including admission/observation considered Consult Healthcare Provider Management of the patient was discussed with: Hospitalist () Lab Data MDM Lab Attestation statement: I reviewed the patient's lab results. 03/15/24 12:20 03/15/24 12:51 Labs: Lab Results 03/15/24 03/15/24 03/15/24 Range/Units 12:12 12:20 12:24 WBC 5.2 (4.8-10.8) X10*3/uL RBC 4.40 L (4.60-5.80) X10*6/uL Hgb 15.0 (14.0-18.0) g/dl Hct 43.0 (42.0-52.0) % MCV 97.7 (80.0-98.0) fL MCH 34.1 H (27.0-33.0) pg MCHC 34.9 (31.0-36.0) g/dl RDW 13.4 (11.0-16.0) % Plt Count 167 (160-400) X10*3/uL MPV 12.2 (9.4-12.4) fL Immature Gran % (Auto) 0.4 (0.0-0.4) % Neut % (Auto) 77.6 H (45-73) % Lymph % (Auto) 17.5 L (20-40) % Alpine % (Auto) 3.5 (2-11) % Eos % (Auto) 0.6 (0-4) % Baso % (Auto) 0.4 (0-2) % Lymph # (Auto) 0.9 L (1.2-4.9) X10*3/uL Alpine # (Auto) 0.2 (0.1-1.2) X10*3/uL Eos # (Auto) 0.0 (0.0-0.4) X10*3/uL Baso # (Auto) 0.0 (0.0-0.2) X10*3/uL Abs Immat Gran (auto) 0.02 (0.00-0.03) X10*3/uL Absolute Neuts (auto) 4.0 (2.0-8.3) x10*3/uL Absolute Nucleated RBC 0.000 (0.0-0.012) X10*3/uL Nucleated RBC % (auto) 0.0 (0.0-0.2) /100WBC Hold Purple Top O2 Saturation % ABG pH at Pt Temp (7.35-7.45) ABG pCO2 at Pt Temp (32-45) mmHg ABG pO2 at Pt Temp (83-108) mmHg ABG HCO3 (22-26) mmol/L ABG Base Excess (Actual) mmol/L VBG pH 7.47 H (7.32-7.43) VBG pCO2 45 mmHg VBG pO2 63 mmHg VBG HCO3 34 H (22-26) mmol/L VBG O2 Saturation 90.0 % VBG Base Excess 9.1 mmol/L Sodium (135-145) mmol/L Potassium (3.3-5.1) mmol/L Chloride (96-108) mmol/L Carbon Dioxide (22-29) mmol/L Anion Gap (12-20) BUN (9-16) mg/dL Creatinine (0.5-1.4) mg/dL Estim Creat Clear Calc Estimated GFR Random Glucose (60-115) mg/dL Lactic Acid 1.1 (0.5-2.0) mmol/L Calcium (8.4-10.2) mg/dL Magnesium (1.6-2.6) mg/dL Total Bilirubin (0.0-1.0) mg/dL AST (5-37) U/L ALT (0-40) U/L Alkaline Phosphatase (39-117) U/L Troponin I High Sens < 2.7 (<3.5-35.0) ng/L B-Natriuretic Peptide 43 (<100) pg/mL Total Protein (6.5-8.0) g/dL Albumin (3.5-5.0) g/dL Influenza Type A (PCR) NEGATIVE (Negative) Influenza Type B (PCR) NEGATIVE (Negative) RSV RNA Qual (PCR) NEGATIVE (Negative) SARS-CoV-2 RNA (RT-PCR) NEGATIVE (Negative) 03/15/24 03/15/24 03/15/24 Range/Units 12:50 12:51 14:51 WBC (4.8-10.8) X10*3/uL RBC (4.60-5.80) X10*6/uL Hgb (14.0-18.0) g/dl Hct (42.0-52.0) % MCV (80.0-98.0) fL MCH (27.0-33.0) pg MCHC (31.0-36.0) g/dl RDW (11.0-16.0) % Plt Count (160-400) X10*3/uL MPV (9.4-12.4) fL Immature Gran % (Auto) (0.0-0.4) % Neut % (Auto) (45-73) % Lymph % (Auto) (20-40) % Alpine % (Auto) (2-11) % Eos % (Auto) (0-4) % Baso % (Auto) (0-2) % Lymph # (Auto) (1.2-4.9) X10*3/uL Alpine # (Auto) (0.1-1.2) X10*3/uL Eos # (Auto) (0.0-0.4) X10*3/uL Baso # (Auto) (0.0-0.2) X10*3/uL Abs Immat Gran (auto) (0.00-0.03) X10*3/uL Absolute Neuts (auto) (2.0-8.3) x10*3/uL Absolute Nucleated RBC (0.0-0.012) X10*3/uL Nucleated RBC % (auto) (0.0-0.2) /100WBC Hold Purple Top SEE NOTE O2 Saturation 91.0 % ABG pH at Pt Temp 7.42 (7.35-7.45) ABG pCO2 at Pt Temp 42 (32-45) mmHg ABG pO2 at Pt Temp 64 L (83-108) mmHg ABG HCO3 28 H (22-26) mmol/L ABG Base Excess (Actual) 3.4 mmol/L VBG pH (7.32-7.43) VBG pCO2 mmHg VBG pO2 mmHg VBG HCO3 (22-26) mmol/L VBG O2 Saturation % VBG Base Excess mmol/L Sodium 140 (135-145) mmol/L Potassium 4.2 (3.3-5.1) mmol/L Chloride 103 (96-108) mmol/L Carbon Dioxide 27 (22-29) mmol/L Anion Gap 14 (12-20) BUN 14 (9-16) mg/dL Creatinine 0.91 (0.5-1.4) mg/dL Estim Creat Clear Calc 65.8 Estimated GFR > 60 Random Glucose 135 H (60-115) mg/dL Lactic Acid (0.5-2.0) mmol/L Calcium 10.3 H D (8.4-10.2) mg/dL Magnesium 2.8 H (1.6-2.6) mg/dL Total Bilirubin 0.7 (0.0-1.0) mg/dL AST 36 (5-37) U/L ALT 40 (0-40) U/L Alkaline Phosphatase 48 (39-117) U/L Troponin I High Sens (<3.5-35.0) ng/L B-Natriuretic Peptide (<100) pg/mL Total Protein 7.8 (6.5-8.0) g/dL Albumin 4.3 (3.5-5.0) g/dL Influenza Type A (PCR) (Negative) Influenza Type B (PCR) (Negative) RSV RNA Qual (PCR) (Negative) SARS-CoV-2 RNA (RT-PCR) (Negative) ABG Data Attestation ABG: I personally reviewed and interpreted this ABG as follows: Independent Interpretation I performed an independent interpretation of an: Plain X-Ray (Chest:Linear scarring or atelectasis at the left lung base.) Radiology Impression Discussion of test interpretation with radiology: I have reviewed the radiologist's reading. Chronic Conditions Patient?s care impacted by: Other (Asthma) Critical Care Time Critical Care Time Critical Care Time: Yes Total Critical Care Time: 60 Attestation: The patient was critically ill with a high probability of imminent or life- threatening deterioration. I spent greater than 30 minutes of discontinuous time evaluating the patient, delivering critical care at the bedside, discussing evaluating data with consultants. Critical care time does not include time spent performing separately billable procedures or teaching. Time spent performing critical care was 60 minutes. Discharge Plan Discharge Clinical Impression: Hypoxia Acute asthma exacerbation Qualifiers: Asthma severity: severe Asthma persistence: persistent Qualified Code(s): J 45.51 - Severe persistent asthma with (acute) exacerbation Patient Disposition: Admitted As Inpatient Print Language: [place]
[2024-03-15] MEDS: Albuterol Sulfate 5 MG, Albuterol/Iprat 2.5/0.5MG 3 ML 3 ML INHALE (12:25)
[2024-03-15 12:26] LABS: MANUAL DIFF FLAG NO
--- NOTE | 2024-03-15 12:29 | PC.NURSE ---
biba from home d/t c/o of increased sob/chest pain to [employer]ING [employer]. pt has a hx of ALS/is nonverbal and communicates w/ whiteboard. upon EMS arrival - pt on 63% on RA/diaphoretic. pt given duoneb by EMS w/ minimal relief - brought pt up to 77% on RA. upon ED arrival - pt placed at 4L via NC w/ slight relief. pt then started to desat - placed on 15L via oxymask . no relief noted. pt then transitioned to high flow nasal cannula by RT. pt tolerating this transition well. no wheezing noted throughout but duoneb requested by provider. 20gIV in the left hand by EMS. 20gIV placed in the right outer forearm - labs obtained/sent to lab. medications administered per provider order. pt remains somnolent and exhausted. unable to open eyes/communicate. resting w/ mouth open. no sob/wob noted. pt positioned upright to promote patent airway. pt seemingly diaphoretic. will obtain rectal obtain for accuracy when pt is able to maintain airway appropriately. plan of care ongoing.
[2024-03-15 12:30] LABS: VBG Base Excess 9.1 mmol/L; VBG HCO3 34 mmol/L (22-26); VBG pCO2 45 mmHg; VBG pH 7.47 (7.32-7.43); VBG pO2 63 mmHg
[2024-03-15 12:31] LABS: Venous Blood Gas Refer to POC result
--- NOTE | 2024-03-15 12:37 | PC.RT ---
Pt came in via EMS on nebulizer tx and O2 via NC. Pt placed on HFNC per provider order and given breathing tx per bronchodilator protocol. Pt is diminished bilateral. Pt tracks with eyes but does not verbally respond, somnolent. Pt sabino HFNC well, titrated from max settings to 40L/50%. Will continue to monitor and give txs as needed.
[2024-03-15 12:38] LABS: Lactic Acid 1.1 mmol/L (0.5-2.0)
[2024-03-15 12:49] LABS: B Type Natriuretic Peptide 43 pg/mL (<100)
[2024-03-15 12:50] LABS: Troponin-I High Sensitivity < 2.7 ng/L (<3.5-35.0)
[2024-03-15] MEDS: Doxycycline Hyclate 100 MG in 0.9 % Sodium Chloride 250 ML 166.67 MG IV (12:51)
--- NOTE | 2024-03-15 12:51 | PC.NURSE ---
pt remains on high flow NC at this time. pt continues to tolerate well. repeat labs obtained/sent to lab by [facility]. abx administered per provider order. plan of care ongoing.
[2024-03-15 12:56] LABS: Basophils Percent Auto 0.4 % (0-2); Eosinophils Percent Auto 0.6 % (0-4); Imm Gran Abs Auto 0.02 X10*3/uL (0.00-0.03); Imm Gran Pct Auto 0.4 % (0.0-0.4); Lymphocytes Absolute Auto 0.9 X10*3/uL (1.2-4.9); Lymphocytes Percent Auto 17.5 % (20-40); Mean Corpuscular HGB Conc 34.9 g/dl (31.0-36.0); Mean Corpuscular Hemoglobin 34.1 pg (27.0-33.0); Mean Corpuscular Volume 97.7 fL (80.0-98.0); Mean Platelet Volume 12.2 fL (9.4-12.4); Monocytes Absolute Auto 0.2 X10*3/uL (0.1-1.2); Monocytes Percent Auto 3.5 % (2-11); Neutrophils Percent Auto 77.6 % (45-73); Platelet Count 167 X10*3/uL (160-400); Red Cell Distribution Width 13.4 % (11.0-16.0); White Blood Count 5.2 X10*3/uL (4.8-10.8)
[2024-03-15 13:10] LABS: Influenza A PCR NEGATIVE (Negative); Influenza B PCR NEGATIVE (Negative); Resp Syncy Virus RNA Qual PCR NEGATIVE (Negative); SARS COV2 PCR INHOUSE NEGATIVE (Negative)
[2024-03-15 13:21] LABS: Alanine Aminotransferase 40 U/L (0-40); Albumin Level 4.3 g/dL (3.5-5.0); Alkaline Phosphatase 48 U/L (39-117); Anion Gap 14 (12-20); Aspartate Amino Transferase 36 U/L (5-37); Bilirubin Total 0.7 mg/dL (0.0-1.0); Blood Urea Nitrogen 14 mg/dL (9-16); Calcium 10.3 mg/dL (8.4-10.2); Carbon Dioxide 27 mmol/L (22-29); Chloride 103 mmol/L (96-108); Creatinine Clr Calc Pharmacy 65.8; Estimated Glomerular Filt Rate > 60; Glucose Random 135 mg/dL (60-115); Magnesium 2.8 mg/dL (1.6-2.6); Potassium 4.2 mmol/L (3.3-5.1); Sodium 140 mmol/L (135-145); Total Protein 7.8 g/dL (6.5-8.0)
[2024-03-15] MEDS: Albuterol/Iprat 2.5/0.5MG 3 ML AMPUL.NEB INHALE ×2 (14:05→18:54)
[2024-03-15 15:00] LABS: ABG Base Excess 3.4 mmol/L; ABG HCO3 28 mmol/L (22-26); ABG pCO2 42 mmHg (32-45); ABG pH 7.42 (7.35-7.45); ABG pO2 64 mmHg (83-108)
--- NOTE | 2024-03-15 15:28 | PHA.MEDREC ---
Pharmacy Consult ? Medication Reconciliation Pharmacy has completed the medication reconciliation. Patient recently discharged 03/08; used information from last med rec done by pharmacy as well as claim history and discharge summary
--- NOTE | 2024-03-15 15:47 | P.HPHOSP_ITS ---
History of Present Illness Date of Service: 03/15/24 Attending physician on admission: Shawn Adorno Chief Complaint: sob 59-year-old male PMH pertinent for asthma on home oxygen, s/p decortication for pleural effusion, HFrEF 40-45%, HIV on HAART, dysphagia s/p G feeding tube, hep C, depression presented to the ED via EMS from home after reporting to [facility] he was short of breath and experiencing chest pain. Per EMS was 63% on RA improved to 73% following duoneb. On exam, the patient is nonverbal which does not appear to be baseline (multiple notes reporting patient speaking) but he is following commands. He is very unwell appearing, weak, fatigued, cachectic, and diaphoretic. He points to his chest and left side of his neck when asked abotu pain. Nods his head yes to feeling short of breath. On arrival, pt tachypneic and hypoxic, placed on hiflow O2 maintaining oximetry 90%. No leukocytosis. Renal fx normal. Lytes normal. Lactic acid 1.1. Hepatic fx wnl. Initial trop undetectable, repeat pending. BNP 43. LDH and PCT pending. Repeat abg shwos hypoxemia, no hypercapnia, or acidosis. Negative for COVID-19, RSV, influenza. Chest x-ray showed linear scarring or atelectasis at left lung base. Last HIV viral load from 09/2023 undetectable. Last CD4 count from 12/2023 219. In the ED, given multiple nebs, iv mag, iv doxy, and methylprednisolone. Of note, was recently admitted 03/07- for acute asthma exacerbration. Review of Systems 2 Review of Systems: Yes Unobtainable due to mental condition (pt largely nonverbal) [facility] Medical History Asthma Dysphagia Adult failure to thrive Adult failure to thrive Multiple rib fractures History of empyema of pleura (01/05/23) Hypertension Closed fracture of leg Hepatitis C Kidney stones Pleuritic chest pain Pneumonia Substance abuse Hemorrhoids Depression HIV (human immunodeficiency virus infection) Asthma Surgical History H/O hemorrhoidectomy Social History Household Members: None Household Members Other:: sister Housing: Apartment Do you presently have visiting nurse or other home services: Yes Alcohol intake: never Patient Tobacco Use Status: Former Tobacco user Tobacco use type: Cigarette e-Cigarette/Vaping Use: Never Used Second Hand Smoke Exposure: No Substance Use Type: Crack/Cocaine Advance Directives: No Advance Directives Information Provided: No Advance Directives Date on File: 04/25/21 Do you have a plan to hurt others: No Plan service: No Current occupational status: disabled Meds Allergies Allergy/AdvReac Type Severity Reaction Status Date / Time Seasonal Allergies Allergy Intermediate Eye Verified 03/15/24 12:04 Drainage codeine Allergy Mild Rash Verified 03/15/24 12:04 [From Tylenol-Codeine #3] levofloxacin [From Levaquin] Allergy Mild Rash Verified 03/15/24 12:04 metoclopramide [From Reglan] Allergy Mild Rash Verified 03/15/24 12:04 acetaminophen Allergy Unknown Rash Verified 03/15/24 12:04 [Tylenol-Codeine #3] Penicillins [PENICILLINS] Allergy Unknown Rash Verified 03/15/24 12:04 ibuprofen [From Motrin] AdvReac Unknown Reflux Verified 03/15/24 12:04 Home Medications ?Medication ?Instructions ?Recorded ?Confirmed ?Last Taken ?Type calcium carbonate 600 mg-vitamin 1 tab feeding tube BID@1200,1800 12/16/23 03/15/24 03/06/24 History D3 20 mcg (800 unit) tablet diphenhydramine HCl 25 mg tablet 50 mg feeding tube BEDTIME 12/16/23 03/15/24 03/06/24 History (Banophen) ferrous gluconate 324 mg (38 mg 324 mg feeding tube BID 12/16/23 03/15/24 03/06/24 History iron) tablet risperidone 3 mg tablet 3 mg feeding tube BEDTIME 12/16/23 03/15/24 03/06/24 History tramadol 50 mg tablet 50 mg feeding tube BID PRN Pain 12/16/23 03/15/24 03/06/24 History (Scale Score 7-10) omeprazole 10 mg capsule,delayed 10 mg feeding tube DAILY@0630 01/10/24 03/15/24 03/06/24 History release albuterol sulfate 90 mcg/actuation 2 puff inhalation Q6H PRN wheezing 03/07/24 03/15/24 Unknown History aerosol inhaler (Ventolin HFA) chlorhexidine gluconate 0.12 % 15 ml PO QID 03/07/24 03/15/24 03/06/24 History mouthwash propranolol 120 mg capsule,24 120 mg PO DAILY 03/07/24 03/15/24 03/06/24 History hr,extended release Physical Exam 2 Vital Signs and Narrative: Vital Signs: Last Vital Signs Temp 96.7 F L 03/15/24 14:22 Pulse 58 03/15/24 14:22 Resp 17 03/15/24 14:22 BP 111/69 03/15/24 14:22 Pulse Ox 90 L 03/15/24 14:22 O2 Del Method High Flow Nasal C annula 03/15/24 14:22 O2 Flow Rate 35 03/15/24 12:50 FiO2 40 03/15/24 12:50 Oxygen Flow Rate 4 03/15/24 12:00 BMI result Body Mass Index 18.6 Constitutional - cachectic, weak, diaphoretic. No apparent distress Eyes - PERRLA, EOMI Mouth - oral thrush Cardiovascular - S1S2, RRR, No edema Respiratory - Normal lung expansion, Normal respiratory effort, No respiratory distress, diminished lung sounds bilaterally otherwise cta Gastrointestinal - NT / ND; +BS; No rebound or guarding Extremities - no calf tenderness bilaterally, no swelling Skin - Warm/Dry Neurological - cachectic, weak appearing, non verbal. Following commands. Symmetric 3/5 strength bue, unable to lift ble Psychological - Appropriate affect Results Labs 03/15/24 12:20 03/15/24 12:51 Labs: Laboratory Results - last 24 hr 03/15/24 03/15/24 03/15/24 12:12 12:20 12:24 MCV 97.7 MCH 34.1 H MCHC 34.9 RDW 13.4 Plt Count 167 MPV 12.2 Immature Gran % (Auto) 0.4 Neut % (Auto) 77.6 H Lymph % (Auto) 17.5 L [place] % (Auto) 3.5 Eos % (Auto) 0.6 Baso % (Auto) 0.4 Lymph # (Auto) 0.9 L [place] # (Auto) 0.2 Eos # (Auto) 0.0 Baso # (Auto) 0.0 Abs Immat Gran (auto) 0.02 Absolute Neuts (auto) 4.0 Absolute Nucleated RBC 0.000 Nucleated RBC % (auto) 0.0 Hold Purple Top O2 Saturation ABG pH at Pt Temp ABG pCO2 at Pt Temp ABG pO2 at Pt Temp ABG HCO3 ABG Base Excess (Actual) VBG pH 7.47 H VBG pCO2 45 VBG pO2 63 VBG HCO3 34 H VBG O2 Saturation 90.0 VBG Base Excess 9.1 Anion Gap Estim Creat Clear Calc Estimated GFR Random Glucose Lactic Acid 1.1 Calcium Magnesium Total Bilirubin AST ALT Alkaline Phosphatase Troponin I High Sens < 2.7 B-Natriuretic Peptide 43 Total Protein Albumin Influenza Type A (PCR) NEGATIVE Influenza Type B (PCR) NEGATIVE RSV RNA Qual (PCR) NEGATIVE SARS-CoV-2 RNA (RT-PCR) NEGATIVE 03/15/24 03/15/24 03/15/24 12:50 12:51 14:51 MCV MCH MCHC RDW Plt Count MPV Immature Gran % (Auto) Neut % (Auto) Lymph % (Auto) [place] % (Auto) Eos % (Auto) Baso % (Auto) Lymph # (Auto) [place] # (Auto) Eos # (Auto) Baso # (Auto) Abs Immat Gran (auto) Absolute Neuts (auto) Absolute Nucleated RBC Nucleated RBC % (auto) Hold Purple Top SEE NOTE O2 Saturation 91.0 ABG pH at Pt Temp 7.42 ABG pCO2 at Pt Temp 42 ABG pO2 at Pt Temp 64 L ABG HCO3 28 H ABG Base Excess (Actual) 3.4 VBG pH VBG pCO2 VBG pO2 VBG HCO3 VBG O2 Saturation VBG Base Excess Anion Gap 14 Estim Creat Clear Calc 65.8 Estimated GFR > 60 Random Glucose 135 H Lactic Acid Calcium 10.3 H D Magnesium 2.8 H Total Bilirubin 0.7 AST 36 ALT 40 Alkaline Phosphatase 48 Troponin I High Sens B-Natriuretic Peptide Total Protein 7.8 Albumin 4.3 Influenza Type A (PCR) Influenza Type B (PCR) RSV RNA Qual (PCR) SARS-CoV-2 RNA (RT-PCR) Imaging Radiologist's Impressions: Impressions Chest X-Ray 03/15/24 13:34 IMPRESSION: Linear scarring or atelectasis at the left lung base. Assessment and Plan (1) Acute hypoxemic respiratory failure: Status: Acute Plan 59-year-old male PMH pertinent for asthma on home oxygen, s/p decortication for pleural effusion, HFrEF 40-45%, HIV on HAART, dysphagia s/p G feeding tube, hep C, depression admitted for further management of acute hypoxemic respiratory failure #Acute hypoxemic respiratory failure due to pneumonia -Continue high flow, wean as tolerated -cxr shows scarring -CTA chest neagtive for PE but shows new LLL consolidation with wrosening mucmus plugging of both lower lobe bronchi. ?Infection and/or aspiration -no wheezing, doubt asthma exacerbation. Further tx with steroids not indicated at this time -IV zosyn. Continue vanco while MRSA pending (initiated 03/15) -duonebs q4h -RPP pending -LDH wnl, doubt pcp pneumonia. PCT wnl -utox negative -ID consult -follow cbc, cultures #Oral thrush -?AIDS, nystatin once more awake -ID consult #Weakness -pt eval -?underlying neuromuscular disorder given global weakness, dysphagia #Chronic dysphagia -g tube, continue tube feeds -nutrition consult #HIV -last viral load undeteactable, last cd4 219 -check viral load, cd4 count -LDH WNL -ID consult -continue biktarvy #Mood disorder -continue home meds #History of decortication -due to empyema left hemithorax 12/2022 #HFrEF -clinically euvolemic dvt prophylaxis- heparin full code pt requires inpt stay at least 2 midnights for management of acute hypoxemic respiratory failure requiring high flow O2 and further investigation into etiology of respiratory failure Quality Stroke Does the patient have a stroke diagnosis?: No VTE Prior VTE?: No VTE Risk Level:: Medical - moderate - high VTE Device Contraindication: Treatment Not Indicated VTE Drug Contraindication: N/A - Med Ordered
[2024-03-15 16:34] LABS: Lactate Dehydrogenase 209 U/L (118-273)
[2024-03-15 16:37] LABS: Troponin-I High Sensitivity < 2.7 ng/L (<3.5-35.0)
[2024-03-15 16:44] LABS: Phosphorus 2.6 mg/dL (2.7-4.5); Procalcitonin < 0.02 ng/mL
[2024-03-15 16:53] LABS: Appearance Urine Cloudy; Color Urine Yellow; Glucose Urine UA Negative (Negative); Leukocyte Esterase Urine Negative (Negative); Nitrite Urine Negative (Negative); PH 7.5 (5.0-9.0); Urine Blood Negative (Negative); Urine Ketones Negative (Negative); Urine Protein Negative (Neg-Trace)
[2024-03-15 16:58] LABS: Bacteria Urine None Seen (None Seen); Hyaline Casts Urine 0-2 /LPF (0-2); RBC Urine 0-2 /HPF (0-2); Squamous Epithelial Cell Urine 0-2 /HPF (0-2); WBC Urine 0-5 /HPF (0-5)
[2024-03-15 17:00] LABS: Amphetamine Screen Urine Not Detected (Not Detect); Barbiturates, Urine Not Detected (Not Detect); Benzodiazepines Screen Urine Not Detected (Not Detect); Buprenorphine Scr Not Detected (Not Detect); Cannabinoid Screen Urine Not Detected (Not Detect); Cocaine Screen Urine Not Detected (Not Detect); Fentanyl, urine Not Detected (Not Detect); Methadone Screen, Urine Not Detected (Not Detect); Opiate Screen Urine Not Detected (Not Detect); Oxycodone Screen Urine Not Detected (Not Detect); Phencyclidine Screen Urine Not Detected (Not Detect)
[2024-03-15] MEDS: 0.9 % Sodium Chloride 1,000 ML 999 ML IV (18:13)
[2024-03-15] MEDS: 0.9 % Sodium Chloride 1,000 ML 100 ML IVCONT (18:13)
[2024-03-15] MEDS: Fluconazole in NaCl,Iso-Osm 400 MG/200 ML PIGGYBACK 100 MG IV (18:15)
--- NOTE | 2024-03-15 18:36 | PC.NURSE ---
pt transitioned to from high flow nasal cannula to 15L via nonrebreather to transport to CT. pt waiting to go to CT at this time. pt also c/o increase in chest pain and headache. pt medicated w/ prn medication. effectiveness pending. respirations remain even/unlabored. pt waiting for bed assignment at this time. plan of care ongoing. call jansen placed within reach.
[2024-03-15] MEDS: Morphine Sulfate 2 MG/ML CARTRIDGE IVPUSH (18:38)
[2024-03-15 18:56] LABS: ABG Refer to POC result
[2024-03-15] MEDS: iohexoL 350 MG/ML 100 ML INFUS..BTL IV (18:57)
[2024-03-15] MEDS: Heparin Sodium,Porcine 5,000 UNIT/ML VIAL 5000 UNIT SUBCUT (19:32)
[2024-03-15] MEDS: cefEPime HCl 2 GM in 0.9 % Sodium Chloride 50 ML IV (19:53)
[2024-03-15] MEDS: vancomycin HCL 1,250 MG in 0.9 % Sodium Chloride 250 ML 166.67 MG IV (20:52)
[2024-03-15] MEDS: Chlorhexidine Gluc Oral Rinse 15 ML MOUTHWASH BUCCAL (22:49)
[2024-03-15] MEDS: Mirtazapine 30 MG TABLET 60 MG G-TUBE (22:49)
[2024-03-15] MEDS: risperiDONE 3 MG TABLET G-TUBE (22:50)
[2024-03-15] MEDS: Gabapentin 600 MG TABLET G-TUBE (22:50)
[2024-03-15] MEDS: diphenhydrAMINE HCL 25 MG CAPSULE 50 MG G-TUBE (22:50)
[2024-03-15] MEDS: Ferrous Sulfate 324 MG TABLET.DR PO (22:50)
[2024-03-16] VITALS (14 sets, daily range): BP systolic 91–106; BP diastolic 51–65; PULSE 57–68; RESP 16–24; TEMP 36.4–36.7; O2SAT 88–98; BMI 18.6
--- NOTE | 2024-03-16 | ECG_ITS ---
Test Reason : chest pain Blood Pressure : / mmHG Vent. Rate : 062 BPM Atrial Rate : 062 BPM P-R Int : 156 ms QRS Dur : 106 ms QT Int : 446 ms P-R-T Axes : 086 073 061 degrees QTc Int : 452 ms Normal sinus rhythm Nonspecific ST abnormality Abnormal ECG When compared with ECG of 15-MAR-2024 12:02, Incomplete right bundle branch block is no longer Present Referred By: Shawn Adorno Electronically Signed By:Daniel Keller
[2024-03-16] MEDS: Morphine Sulfate 2 MG/ML CARTRIDGE IVPUSH ×3 (00:33→18:40)
[2024-03-16] MEDS: 0.9 % Sodium Chloride Flush 3 ML SYRINGE IVFLUSH ×2 (02:31→10:15)
[2024-03-16] MEDS: 0.9 % Sodium Chloride 1,000 ML 100 ML IVCONT ×2 (04:26→18:40)
[2024-03-16] MEDS: cefEPime HCl 2 GM in 0.9 % Sodium Chloride 50 ML IV ×3 (04:26→20:08)
[2024-03-16] MEDS: Omeprazole/Na Bicarb Oral Susp 20 MG/10 ML UD Cup 10 MG G-TUBE (06:01)
[2024-03-16] MEDS: Heparin Sodium,Porcine 5,000 UNIT/ML VIAL 5000 UNIT SUBCUT ×2 (06:05→20:02)
[2024-03-16] MEDS: Albuterol/Iprat 2.5/0.5MG 3 ML AMPUL.NEB INHALE ×4 (07:03→19:41)
[2024-03-16 08:10] LABS: Basophils Percent Auto 0.1 % (0-2); Hematocrit 40.1 % (42.0-52.0); Hemoglobin 13.5 g/dl (14.0-18.0); Imm Gran Abs Auto 0.08 X10*3/uL (0.00-0.03); Imm Gran Pct Auto 0.4 % (0.0-0.4); Lymphocytes Absolute Auto 1.4 X10*3/uL (1.2-4.9); Lymphocytes Percent Auto 7.3 % (20-40); MANUAL DIFF FLAG SCAN; Mean Corpuscular HGB Conc 33.7 g/dl (31.0-36.0); Mean Corpuscular Hemoglobin 33.8 pg (27.0-33.0); Mean Corpuscular Volume 100.5 fL (80.0-98.0); Mean Platelet Volume 12.8 fL (9.4-12.4); Monocytes Absolute Auto 1.6 X10*3/uL (0.1-1.2); Monocytes Percent Auto 8.9 % (2-11); Neutrophils Absolute Auto 15.3 x10*3/uL (2.0-8.3); Neutrophils Percent Auto 83.3 % (45-73); Platelet Count 152 X10*3/uL (160-400); Red Blood Count 3.99 X10*6/uL (4.60-5.80); Red Cell Distribution Width 13.8 % (11.0-16.0); SCAN SMEAR FLAG 1; White Blood Count 18.4 X10*3/uL (4.8-10.8)
[2024-03-16 08:29] LABS: SLIDE REVIEW VERIFIED
[2024-03-16 08:30] LABS: Anion Gap 14 (12-20); Blood Urea Nitrogen 15 mg/dL (9-16); Carbon Dioxide 21 mmol/L (22-29); Chloride 110 mmol/L (96-108); Creatinine Clr Calc Pharmacy 78.9; Estimated Glomerular Filt Rate > 60; Glucose Random 137 mg/dL (60-115); Sodium 141 mmol/L (135-145)
[2024-03-16 08:38] LABS: Calcium 8.4 mg/dL (8.4-10.2)
--- NOTE | 2024-03-16 09:09 | P.PNIM_ITS ---
Subjective Subjective Date of Service: 03/16/24 Interval History: sob but improved Physical Exam 2 Vital Signs: Vital Signs: Last Vital Signs Temp 98.0 F 03/16/24 08:00 Pulse 68 03/16/24 08:00 Resp 20 03/16/24 08:00 BP 91/51 L 03/16/24 08:00 Pulse Ox 93 03/16/24 08:00 O2 Del Method High Flow Nasal C annula 03/16/24 08:00 O2 Flow Rate 40 03/16/24 08:00 FiO2 40 03/16/24 08:00 Oxygen Flow Rate 4 03/15/24 12:00 BMI result Body Mass Index 18.6 still very frail and ill appearing but better than previous day, able to vocalize today, strength somewhat improved lungs diminished Objective Data Active Medications Albuterol Sulfate (Albuterol Sulfate 90 Mcg 8 Gm Inhaler) 2 puff INHALE Q6H PRN PRN Reason: wheezing Albuterol/Ipratropium (Albuterol/Iprat 2.5/0.5mg 3 Ml Ampul.Neb) 3 ml INHALE RQ4H WHILE AWAKE [facility] Last Admin: 03/16/24 07:03 Dose: 3 ml Documented By: KIRK Amlodipine Besylate (Amlodipine Besylate 5 Mg Tablet) 5 mg G-TUBE DAILY [facility]; Protocol Bictegravir/Emtricitabine/Tenofovir (Bictegrav/Emtricit/Tenofov Ala Tablet) 1 tab PO DAILY [facility] Calcium Carbonate (Calcium Carbonate 750 Mg Tab.Chew) 750 mg PO Q4H PRN PRN Reason: Heartburn Calcium Carbonate/Cholecalciferol (Calcium + Vitamin D 250 Mg Tablet) 250 mg G- TUBE BID@1200,1800 [facility] Chlorhexidine Gluconate (Chlorhexidine Gluc Oral Rinse 15 Ml Mouthwash) 15 ml BUCCAL QID [facility] Last Admin: 03/15/24 22:49 Dose: 15 ml Documented By: ALEXY Clonazepam (Clonazepam 1 Mg Tablet) 1 mg G-TUBE DAILY [facility] Diphenhydramine HCl (Diphenhydramine Hcl 25 Mg Capsule) 50 mg G-TUBE BEDTIME [facility] Last Admin: 03/15/24 22:50 Dose: 50 mg Documented By: ALEXY Ferrous Sulfate (Ferrous Sulfate 324 Mg Tablet.) 324 mg PO BID [facility] Last Admin: 03/15/24 22:50 Dose: 324 mg Documented By: ALEXY Gabapentin (Gabapentin 600 Mg Tablet) 600 mg G-TUBE TID [facility] Last Admin: 03/15/24 22:50 Dose: 600 mg Documented By: ALEXY Heparin Sodium (Porcine) (Heparin Sodium,Porcine 5,000 Unit/Ml Vial) 5,000 unit SUBCUT Q12H [facility] Last Admin: 03/16/24 06:05 Dose: 5,000 unit Documented By: RUTH Sodium Chloride (Ns) 1,000 mls @ 100 mls/hr IVCONT .Q10H [facility] Last Admin: 03/16/24 04:26 Dose: 100 mls/hr Documented By: RUTH Fluconazole (Diflucan) 200 mg in 100 mls @ 100 mls/hr IV Q24H [facility] Cefepime HCl 2 gm/ Sodium (Chloride) 50 mls @ 100 mls/hr IV Q8H [facility] Last Infusion: 03/16/24 06:00 Dose: Infused Documented By: RUTH Vancomycin HCl 750 mg/ Sodium (Chloride) 265 mls @ 265 mls/hr IV Q12H [facility] Magnesium Hydroxide (Milk Of Magnesia 30 Ml Oral.Susp) 30 ml PO DAILY PRN PRN Reason: Constipation Melatonin (Melatonin 3 Mg Tablet) 6 mg PO BEDTIME PRN PRN Reason: Insomnia Mirtazapine (Mirtazapine 30 Mg Tablet) 60 mg G-TUBE BEDTIME [facility] Last Admin: 03/15/24 22:49 Dose: 60 mg Documented By: ALEXY Morphine Sulfate (Morphine Sulfate 2 Mg/Ml Cartridge) 2 mg IVPUSH Q4H PRN; Protocol PRN Reason: Pain, Severe (Pain Scale 7-10) Last Admin: 03/16/24 00:33 Dose: 2 mg Documented By: LULA Omeprazole (Omeprazole/Na Bicarb Oral Susp 20 Mg/10 Ml Ud Cup) 10 mg G-TUBE DAILY@629 [facility] Last Admin: 03/16/24 06:01 Dose: 10 mg Documented By: RUTH Pharmacy Consult (Consult Rx Vancomycin Dosing) 1 each MISCELLANE DAILY PRN PRN Reason: Consult order Propranolol HCl (Propranolol Hcl La 60 Mg Cap.Sa.24h) 120 mg PO DAILY [facility]; Protocol Risperidone (Risperidone 3 Mg Tablet) 3 mg G-TUBE BEDTIME [facility] Last Admin: 03/15/24 22:50 Dose: 3 mg Documented By: ALEXY Sodium Chloride (0.9 % Sodium Chloride Flush 3 Ml Syringe) 3 ml IVFLUSH QSHIFT [facility] Last Admin: 03/16/24 02:31 Dose: 3 ml Documented By: RUTH Tramadol HCl (Tramadol Hcl 50 Mg Tablet) 50 mg G-TUBE BID PRN PRN Reason: Pain, Moderate(Pain Scale 4-6) Labs 03/16/24 08:04 03/16/24 08:04 Labs: Laboratory Results - last 24 hr 03/15/24 03/15/24 03/15/24 12:12 12:20 12:24 MCV 97.7 MCH 34.1 H MCHC 34.9 RDW 13.4 Plt Count 167 MPV 12.2 Immature Gran % (Auto) 0.4 Neut % (Auto) 77.6 H Lymph % (Auto) 17.5 L Ada % (Auto) 3.5 Eos % (Auto) 0.6 Baso % (Auto) 0.4 Lymph # (Auto) 0.9 L Ada # (Auto) 0.2 Eos # (Auto) 0.0 Baso # (Auto) 0.0 Abs Immat Gran (auto) 0.02 Absolute Neuts (auto) 4.0 Absolute Nucleated RBC 0.000 Nucleated RBC % (auto) 0.0 Smear Tech's Comments Hold Purple Top O2 Saturation ABG pH at Pt Temp ABG pCO2 at Pt Temp ABG pO2 at Pt Temp ABG HCO3 ABG Base Excess (Actual) VBG pH 7.47 H VBG pCO2 45 VBG pO2 63 VBG HCO3 34 H VBG O2 Saturation 90.0 VBG Base Excess 9.1 Anion Gap Estim Creat Clear Calc Estimated GFR Random Glucose Lactic Acid 1.1 Calcium Phosphorus Magnesium Total Bilirubin AST ALT Alkaline Phosphatase Lactate Dehydrogenase Troponin I High Sens < 2.7 B-Natriuretic Peptide 43 Total Protein Albumin Procalcitonin Urine Color Urine Appearance Urine pH Ur Specific [place] Urine Protein Urine Glucose (UA) Urine Ketones Urine Blood Urine Nitrite Ur Leukocyte Esterase Urine RBC Urine WBC Ur Squamous Epith Cells Urine Bacteria Hyaline Casts Urine Opiates Screen Ur Buprenorphine Scrn Ur Oxycodone Screen Urine Methadone Screen Urine Fentanyl Screen Ur Barbiturates Screen Ur Phencyclidine Scrn Ur Amphetamines Screen U Benzodiazepines Scrn Urine Cocaine Screen U Marijuana (THC) Screen Influenza Type A (PCR) NEGATIVE Influenza Type B (PCR) NEGATIVE RSV RNA Qual (PCR) NEGATIVE SARS-CoV-2 RNA (RT-PCR) NEGATIVE 03/15/24 03/15/24 03/15/24 12:50 12:51 14:51 MCV MCH MCHC RDW Plt Count MPV Immature Gran % (Auto) Neut % (Auto) Lymph % (Auto) Ada % (Auto) Eos % (Auto) Baso % (Auto) Lymph # (Auto) Ada # (Auto) Eos # (Auto) Baso # (Auto) Abs Immat Gran (auto) Absolute Neuts (auto) Absolute Nucleated RBC Nucleated RBC % (auto) Smear Tech's Comments Hold Purple Top SEE NOTE O2 Saturation 91.0 ABG pH at Pt Temp 7.42 ABG pCO2 at Pt Temp 42 ABG pO2 at Pt Temp 64 L ABG HCO3 28 H ABG Base Excess (Actual) 3.4 VBG pH VBG pCO2 VBG pO2 VBG HCO3 VBG O2 Saturation VBG Base Excess Anion Gap 14 Estim Creat Clear Calc 65.8 Estimated GFR > 60 Random Glucose 135 H Lactic Acid Calcium 10.3 H D Phosphorus 2.6 L Magnesium 2.8 H Total Bilirubin 0.7 AST 36 ALT 40 Alkaline Phosphatase 48 Lactate Dehydrogenase 209 Troponin I High Sens B-Natriuretic Peptide Total Protein 7.8 Albumin 4.3 Procalcitonin < 0.02 Urine Color Urine Appearance Urine pH Ur Specific [place] Urine Protein Urine Glucose (UA) Urine Ketones Urine Blood Urine Nitrite Ur Leukocyte Esterase Urine RBC Urine WBC Ur Squamous Epith Cells Urine Bacteria Hyaline Casts Urine Opiates Screen Ur Buprenorphine Scrn Ur Oxycodone Screen Urine Methadone Screen Urine Fentanyl Screen Ur Barbiturates Screen Ur Phencyclidine Scrn Ur Amphetamines Screen U Benzodiazepines Scrn Urine Cocaine Screen U Marijuana (THC) Screen Influenza Type A (PCR) Influenza Type B (PCR) RSV RNA Qual (PCR) SARS-CoV-2 RNA (RT-PCR) 03/15/24 03/15/24 03/16/24 16:09 16:39 08:04 MCV 100.5 H MCH 33.8 H MCHC 33.7 RDW 13.8 Plt Count 152 L MPV 12.8 H Immature Gran % (Auto) 0.4 Neut % (Auto) 83.3 H Lymph % (Auto) 7.3 L Ada % (Auto) 8.9 Eos % (Auto) 0.0 Baso % (Auto) 0.1 Lymph # (Auto) 1.4 Ada # (Auto) 1.6 H Eos # (Auto) 0.0 Baso # (Auto) 0.0 Abs Immat Gran (auto) 0.08 H Absolute Neuts (auto) 15.3 H Absolute Nucleated RBC 0.000 Nucleated RBC % (auto) 0.0 Smear Tech's Comments VERIFIED Hold Purple Top O2 Saturation ABG pH at Pt Temp ABG pCO2 at Pt Temp ABG pO2 at Pt Temp ABG HCO3 ABG Base Excess (Actual) VBG pH VBG pCO2 VBG pO2 VBG HCO3 VBG O2 Saturation VBG Base Excess Anion Gap 14 Estim Creat Clear Calc 78.9 Estimated GFR > 60 Random Glucose 137 H Lactic Acid Calcium 8.4 D Phosphorus Magnesium Total Bilirubin AST ALT Alkaline Phosphatase Lactate Dehydrogenase Troponin I High Sens < 2.7 B-Natriuretic Peptide Total Protein Albumin Procalcitonin Urine Color Yellow Urine Appearance Cloudy Urine pH 7.5 Ur Specific [place] 1.010 Urine Protein Negative Urine Glucose (UA) Negative Urine Ketones Negative Urine Blood Negative Urine Nitrite Negative Ur Leukocyte Esterase Negative Urine RBC 0-2 Urine WBC 0-5 Ur Squamous Epith Cells 0-2 Urine Bacteria None Seen Hyaline Casts 0-2 Urine Opiates Screen Not Detected Ur Buprenorphine Scrn Not Detected Ur Oxycodone Screen Not Detected Urine Methadone Screen Not Detected Urine Fentanyl Screen Not Detected Ur Barbiturates Screen Not Detected Ur Phencyclidine Scrn Not Detected Ur Amphetamines Screen Not Detected U Benzodiazepines Scrn Not Detected Urine Cocaine Screen Not Detected U Marijuana (THC) Screen Not Detected Influenza Type A (PCR) Influenza Type B (PCR) RSV RNA Qual (PCR) SARS-CoV-2 RNA (RT-PCR) Assessment and Plan (1) Acute hypoxemic respiratory failure: Status: Acute Plan 59M PMH severe persistent asthma with chronic hypoxic respiratory failure on home oxygen, s/p decortication for empyema/pleural effusion, HFrEF 40-45%, HIV on HAART, dysphagia s/p G feeding tube, hep C, depression presented with sob Acute on chronic hypoxemic respiratory failure due to pneumonia Continue high flow, wean as tolerated CTA chest neagtive for PE but shows new LLL consolidation with wrosening mucmus plugging of both lower lobe bronchi. ?Infection and/or aspiration IV zosyn. Continue vanco while MRSA pending (initiated 03/15) duonebs q4h ID consult follow cbc, cultures Oral thrush diflucan ID consult Weakness pt eval Chronic dysphagia g tube, continue tube feeds nutrition consult HIV last viral load undeteactable, last cd4 219 check viral load, cd4 count LDH WNL ID consult continue biktarvy Mood disorder holding risperdal for lethargy History of decortication due to empyema left hemithorax 12/2022 HFrEF clinically euvolemic dvt prophylaxis- heparin full code reason for continued hospitalization:severe hypoxia Quality Stroke Does the patient have a stroke diagnosis?: No VTE Prior VTE?: No VTE Risk Level:: Medical - moderate - high VTE Device Contraindication: Treatment Not Indicated VTE Drug Contraindication: N/A - Med Ordered
[2024-03-16 09:38] LABS: MRSA Nasal PCR POSITIVE (Negative); SA Nasal PCR POSITIVE (Negative)
[2024-03-16 10:29] LABS: Adenovirus PCR Not Detected (Not Detect.); Bordetella parapertussis PCR Not Detected (Not Detect.); Bordetella pertussis PCR Not Detected (Not Detect.); Chlamydia pneumoniae PCR Not Detected (Not Detect.); Coronavirus 229E PCR Not Detected (Not Detect.); Coronavirus HKU1 PCR Not Detected (Not Detect.); Coronavirus NL63 PCR Not Detected (Not Detect.); Coronavirus OC43 PCR Not Detected (Not Detect.); Human metapneumovirus PCR Not Detected (Not Detect.); Influenza A PCR Not Detected (Not Detect.); Influenza B PCR Not Detected (Not Detect.); Mycoplasma pneumoniae PCR Not Detected (Not Detect.); Parainfluenza 1 PCR Not Detected (Not Detect.); Parainfluenza 2 PCR Not Detected (Not Detect.); Parainfluenza 3 PCR Not Detected (Not Detect.); Parainfluenza 4 PCR Not Detected (Not Detect.); RSV PCR Not Detected (Not Detect.); Rhino/Enterovirus PCR Not Detected (Not Detect.); SARS-CoV-2 PCR Not Detected (Not Detect.)
[2024-03-16 10:33] LABS: C Reactive Protein < 0.10 mg/dL (< or = 0.50)
--- NOTE | 2024-03-16 10:40 | PM.CNPUL ---
History of Present Illness History of Present Illness Consult date: 03/16/24 Chief complaint: Acute hypoxemic respiratory failure Narrative: 59-year-old gentleman with underlying HIV on HAART, hep C, adult failure to thrive, prior history of pleural effusion with decortication, systolic congestive heart failure with EF 40-45%, home oxygen dependent, dysphagia status post feeding tube admitted on 03/15/2024 with weakness and hypoxia. CT angio chest with no evidence pulmonary emboli, but developing left basilar infiltrate. Treated with empiric antibiotics and bronchodilators. Now requiring high-flow oxygen to maintain normal oximetry. Improving slowly. Review of Systems Constitutional: Constitutional: Denies daytime sleepiness, Denies excessive sweating, Reports fatigue, Denies fever(s), Reports lethargy, Reports malaise, Denies night sweats, Denies snoring and Denies weight loss Eyes: Eyes: Denies blurry vision and Denies itchy eyes ENT: Denies nasal congestion, Denies post nasal drip, Denies sinus pain, Denies sinus pressure and Denies other ( Thrush) Cardiovascular: Cardiovascular: Denies chest pain, Denies pedal edema, Reports dyspnea, Denies orthopnea and Denies paroxysmal nocturnal dyspnea Respiratory: Respiratory: Denies cough, Denies hemoptysis, Denies excessive phlegm production, Reports dyspnea, Denies snoring and Denies wheezing Gastrointestinal: Gastrointestinal: Denies abdominal pain and Denies heartburn Musculoskeletal: Musculoskeletal: Denies myalgias, Denies arthralgias and Denies joint swelling Integumentary/Breasts: Skin/Breast: Denies rash Neurologic: Denies memory loss and Denies seizure-like activity Psychiatric: Psychiatric: Denies abnormal sleep pattern, Denies anxiety and Denies memory loss Endocrine: Endocrine: Denies excessive sweating, Reports fatigue and Denies heat intolerance Hematologic/Lymphatic: Hematologic/Lymphatic: Denies easy bruising Allergic/Immunologic: Allergic/Immunologic: Denies itchy eyes, Denies seasonal rhinorrhea and Denies wheezing PMFSH Past Medical History Medical History Asthma Dysphagia Adult failure to thrive Adult failure to thrive Multiple rib fractures History of empyema of pleura (01/05/23) Hypertension Closed fracture of leg Hepatitis C Kidney stones Pleuritic chest pain Pneumonia Substance abuse Hemorrhoids Depression HIV (human immunodeficiency virus infection) Asthma Surgical History Surgical History H/O hemorrhoidectomy Social History Social History Household Members: Other Household Members Other:: lives with SLASHER SAWYER Housing: Apartment Do you presently have visiting nurse or other home services: Yes Alcohol intake: never Patient Tobacco Use Status: Former Tobacco user Tobacco use type: Cigarette e-Cigarette/Vaping Use: Never Used Second Hand Smoke Exposure: No Use of substances other than those prescribed or required for medical reasons: No Substance Use Type: Crack/Cocaine Currently Displaying Signs/Symptoms of Drug Intoxication Withdrawal: No Have you been hit, kicked, punched, or otherwise hurt by someone within the past year? If so, by whom?: No Do you feel safe in your current relationship?: No Current Relationship Is there a partner from a previous relationship who is making you feel unsafe now?: No Are you made to feel afraid or neglected: No Advance Directives: No Advance Directives Information Provided: No Advance Directives Date on File: 04/25/21 Do you have a plan to hurt others: No Plan Recently lost weight without trying: Unsure Eating poorly because of decreased appetite: No Nutrition Risks: On aspiration precautions and Receiving home tube feeding or CPN Poor oral hygiene: No service: No Current occupational status: disabled Meds Allergies Allergy/AdvReac Type Severity Reaction Status Date / Time Seasonal Allergies Allergy Intermediate Eye Verified 03/15/24 12:04 Drainage codeine Allergy Mild Rash Verified 03/15/24 12:04 [From Tylenol-Codeine #3] levofloxacin [From Levaquin] Allergy Mild Rash Verified 03/15/24 12:04 metoclopramide [From Reglan] Allergy Mild Rash Verified 03/15/24 12:04 acetaminophen Allergy Unknown Rash Verified 03/15/24 12:04 [Tylenol-Codeine #3] Penicillins [PENICILLINS] Allergy Unknown Rash Verified 03/15/24 12:04 ibuprofen [From Motrin] AdvReac Unknown Reflux Verified 03/15/24 12:04 Active Medications: Current Medications Albuterol Sulfate (Albuterol Sulfate 90 Mcg 8 Gm Inhaler) 2 puff INHALE Q6H PRN PRN Reason: wheezing Albuterol/Ipratropium (Albuterol/Iprat 2.5/0.5mg 3 Ml Ampul.Neb) 3 ml INHALE RQ4H WHILE AWAKE [facility] Last Admin: 03/16/24 07:03 Dose: 3 ml Amlodipine Besylate (Amlodipine Besylate 5 Mg Tablet) 5 mg G-TUBE DAILY [facility]; Protocol Bictegravir/Emtricitabine/Tenofovir (Bictegrav/Emtricit/Tenofov Ala Tablet) 1 tab PO DAILY [facility] Calcium Carbonate (Calcium Carbonate 750 Mg Tab.Chew) 750 mg PO Q4H PRN PRN Reason: Heartburn Calcium Carbonate/Cholecalciferol (Calcium + Vitamin D 250 Mg Tablet) 250 mg G-TUBE BID@1200,1800 [facility] Chlorhexidine Gluconate (Chlorhexidine Gluc Oral Rinse 15 Ml Mouthwash) 15 ml BUCCAL QID [facility] Last Admin: 03/15/24 22:49 Dose: 15 ml Clonazepam (Clonazepam 1 Mg Tablet) 1 mg G-TUBE DAILY [facility] Diphenhydramine HCl (Diphenhydramine Hcl 25 Mg Capsule) 50 mg G-TUBE BEDTIME [facility] Last Admin: 03/15/24 22:50 Dose: 50 mg Ferrous Sulfate (Ferrous Sulfate 324 Mg Tablet.Dr) 324 mg PO BID [facility] Last Admin: 03/15/24 22:50 Dose: 324 mg Gabapentin (Gabapentin 600 Mg Tablet) 600 mg G-TUBE TID [facility] Last Admin: 03/15/24 22:50 Dose: 600 mg Heparin Sodium (Porcine) (Heparin Sodium,Porcine 5,000 Unit/Ml Vial) 5,000 unit SUBCUT Q12H [facility] Last Admin: 03/16/24 06:05 Dose: 5,000 unit Sodium Chloride (Ns) 1,000 mls @ 100 mls/hr IVCONT .Q10H [facility] Last Admin: 03/16/24 04:26 Dose: 100 mls/hr Fluconazole (Diflucan) 200 mg in 100 mls @ 100 mls/hr IV Q24H [facility] Cefepime HCl 2 gm/ Sodium (Chloride) 50 mls @ 100 mls/hr IV Q8H [facility] Last Infusion: 03/16/24 06:00 Dose: Infused Vancomycin HCl 750 mg/ Sodium (Chloride) 265 mls @ 265 mls/hr IV Q12H [facility] Magnesium Hydroxide (Milk Of Magnesia 30 Ml Oral.Susp) 30 ml PO DAILY PRN PRN Reason: Constipation Melatonin (Melatonin 3 Mg Tablet) 6 mg PO BEDTIME PRN PRN Reason: Insomnia Mirtazapine (Mirtazapine 30 Mg Tablet) 60 mg G-TUBE BEDTIME [facility] Last Admin: 03/15/24 22:49 Dose: 60 mg Morphine Sulfate (Morphine Sulfate 2 Mg/Ml Cartridge) 2 mg IVPUSH Q4H PRN; Protocol PRN Reason: Pain, Severe (Pain Scale 7-10) Last Admin: 03/16/24 00:33 Dose: 2 mg Omeprazole (Omeprazole/Na Bicarb Oral Susp 20 Mg/10 Ml Ud Cup) 10 mg G-TUBE DAILY@629 [facility] Last Admin: 03/16/24 06:01 Dose: 10 mg Pharmacy Consult (Consult Rx Vancomycin Dosing) 1 each MISCELLANE DAILY PRN PRN Reason: Consult order Propranolol HCl (Propranolol Hcl La 60 Mg Cap.Sa.24h) 120 mg PO DAILY [facility]; Protocol Risperidone (Risperidone 3 Mg Tablet) 3 mg G-TUBE BEDTIME [facility] Last Admin: 03/15/24 22:50 Dose: 3 mg Sodium Chloride (0.9 % Sodium Chloride Flush 3 Ml Syringe) 3 ml IVFLUSH QSHIFT [facility] Last Admin: 03/16/24 02:31 Dose: 3 ml Tramadol HCl (Tramadol Hcl 50 Mg Tablet) 50 mg G-TUBE BID PRN PRN Reason: Pain, Moderate(Pain Scale 4-6) Home Medications ?Medication ?Instructions ?Recorded ?Confirmed ?Last Taken ?Type calcium carbonate 600 mg-vitamin 1 tab feeding tube BID@1200,1800 12/16/23 03/15/24 03/06/24 History D3 20 mcg (800 unit) tablet diphenhydramine HCl 25 mg tablet 50 mg feeding tube BEDTIME 12/16/23 03/15/24 03/06/24 History (Banophen) ferrous gluconate 324 mg (38 mg 324 mg feeding tube BID 12/16/23 03/15/24 03/06/24 History iron) tablet risperidone 3 mg tablet 3 mg feeding tube BEDTIME 12/16/23 03/15/24 03/06/24 History tramadol 50 mg tablet 50 mg feeding tube BID PRN Pain 12/16/23 03/15/24 03/06/24 History (Scale Score 7-10) omeprazole 10 mg capsule,delayed 10 mg feeding tube DAILY@0630 01/10/24 03/15/24 03/06/24 History release albuterol sulfate 90 mcg/actuation 2 puff inhalation Q6H PRN wheezing 03/07/24 03/15/24 Unknown History aerosol inhaler (Ventolin HFA) chlorhexidine gluconate 0.12 % 15 ml PO QID 03/07/24 03/15/24 03/06/24 History mouthwash propranolol 120 mg capsule,24 120 mg PO DAILY 03/07/24 03/15/24 03/06/24 History hr,extended release Physical Exam Vital Signs: Vital Signs: Last Vital Signs Temp 98.0 F 03/16/24 08:00 Pulse 68 03/16/24 08:00 Resp 20 03/16/24 08:00 BP 91/51 L 03/16/24 08:00 Pulse Ox 93 03/16/24 08:00 O2 Del Method High Flow Nasal C annula 03/16/24 08:00 O2 Flow Rate 40 03/16/24 08:00 FiO2 40 03/16/24 08:00 Oxygen Flow Rate 4 03/15/24 12:00 BMI result Body Mass Index 18.6 Const: General: no acute distress, alert and awake Nutritional Appearance: malnourished Eyes: Sclerae: sclerae normal EOM: EOMs intact bilaterally Neck: Neck: Yes no lymphadenopathy, Yes trachea midline and Yes supple Resp: Effort & Inspection: normal respiratory effort and no respiratory distress Auscultation: clear to auscultation bilaterally Cardio: Rate: regular rate Rhythm: regular rhythm Heart sounds: no gallops, no murmurs and no rubs GI: Palpation (GI): Soft to palpation and Other GI palpation findings present ( Nontender) Auscultation: normal bowel sounds Extrem: General: Yes no pedal edema, No clubbing and No cyanosis Results Laboratory Findings 03/16/24 08:04 03/16/24 08:04 Abnormal lab findings: Abnormal Labs 03/15/24 03/15/24 03/15/24 12:20 12:24 12:51 WBC RBC 4.40 L Hgb Hct MCV MCH 34.1 H Plt Count MPV Neut % (Auto) 77.6 H Lymph % (Auto) 17.5 L Lymph # (Auto) 0.[address] # (Auto) Abs Immat Gran (auto) Absolute Neuts (auto) ABG pO2 at Pt Temp ABG HCO3 VBG pH 7.47 H VBG HCO3 34 H Chloride Carbon Dioxide Random Glucose 135 H Calcium 10.3 H D Phosphorus 2.6 L Magnesium 2.8 H Nasal Screen MRSA (PCR) Nasal S. aureus Screen 03/15/24 03/15/24 03/16/24 14:51 17:09 08:04 WBC 18.4 H RBC 3.99 L Hgb 13.5 L Hct 40.1 L MCV 100.5 H MCH 33.8 H Plt Count 152 L MPV 12.8 H Neut % (Auto) 83.3 H Lymph % (Auto) 7.3 L Lymph # (Auto) [place] # (Auto) 1.6 H Abs Immat Gran (auto) 0.08 H Absolute Neuts (auto) 15.3 H ABG pO2 at Pt Temp 64 L ABG HCO3 28 H VBG pH VBG HCO3 Chloride 110 H Carbon Dioxide 21 L Random Glucose 137 H Calcium Phosphorus Magnesium Nasal Screen MRSA (PCR) POSITIVE A Nasal S. aureus Screen POSITIVE A Assessment and Plan (1) Acute hypoxemic respiratory failure: Status: Acute (2) Pulmonary aspiration: Status: Acute Plan Impression: 59-year-old gentleman with underlying HIV, hep C, failure to thrive, dysphagia status post PEG admitted with acute hypoxic respiratory failure with what appears to be pulmonary aspiration as a main etiology, now improving slowly. Recommendations: Agree with empiric broad-spectrum antibiotics. Aspiration precautions. Nutrition and speech therapy evaluation. Procedures Date of Service Date of Service: 03/16/24
--- NOTE | 2024-03-16 11:04 | MHC.CM.PN ---
IMM 03/16/24, Pt lives with his MOLD INSPECTOR, Ashtyn, she assists him with all of his personal care. He has a nurse that comes in twice a day for his tube feedings, he could not say from which [facility] or agency. He said that he has been to [facility] before at [facility]. He has a walker, O2 and tube feedling supplies for DME. PCP is: Alayna Mccoy at [facility]. DCP is to be determined, CM will follow and assist with DC planning.
[2024-03-16] MEDS: vancomycin HCL 750 MG in 0.9 % Sodium Chloride 250 ML 265 MG IV ×2 (11:12→21:56)
[2024-03-16] MEDS: Chlorhexidine Gluc Oral Rinse 15 ML MOUTHWASH BUCCAL ×4 (11:23→21:56)
[2024-03-16] MEDS: Gabapentin 600 MG TABLET G-TUBE ×2 (11:23→15:33)
[2024-03-16] MEDS: clonazePAM 1 MG TABLET G-TUBE (11:23)
[2024-03-16] MEDS: Bictegrav/Emtricit/Tenofov Ala TABLET 1 TAB PO (11:23)
[2024-03-16] MEDS: Calcium + Vitamin D 250 MG TABLET G-TUBE ×2 (11:24→18:40)
--- NOTE | 2024-03-16 12:31 | P.CNNE_ITS ---
History of Present Illness Data of Consult Service Date: 03/16/24 Primary Care Provider: Unknown Physician HPI Reason for consult: Encephalopathy 59-year-old male H with asthma on home oxygen, HIV on HAART, dysphagia s/p G feeding tube, hep C, depression, chronic headaches probably of tension type, previously normal head CT and MRI of brain with suggestion of parkinsonian feature being treated for pneumonia. I noted that Dr. Costello 1 time ordered BENJAMIN scan but I am not sure if that was done. I was asked to see him for possibility of neuromuscular disorder. He was having generalized weakness. When I asked him why he was here? He said because of pneumonia. He was able to answer simple questions with the help of an pilot can router. There was no sign of distress. Review of Systems 2 Review of Systems: No double vision. He has chronic difficulty swallowing. FOR[facility] Past Medical History Medical History Asthma Dysphagia Adult failure to thrive Adult failure to thrive Multiple rib fractures History of empyema of pleura (01/05/23) Hypertension Closed fracture of leg Hepatitis C Kidney stones Pleuritic chest pain Pneumonia Substance abuse Hemorrhoids Depression HIV (human immunodeficiency virus infection) Asthma Surgical History Surgical History H/O hemorrhoidectomy Social History Social History Household Members: Other Household Members Other:: lives with [facility] Housing: Apartment Do you presently have visiting nurse or other home services: Yes Alcohol intake: never Patient Tobacco Use Status: Former Tobacco user Tobacco use type: Cigarette e-Cigarette/Vaping Use: Never Used Second Hand Smoke Exposure: No Use of substances other than those prescribed or required for medical reasons: No Substance Use Type: Crack/Cocaine Currently Displaying Signs/Symptoms of Drug Intoxication Withdrawal: No Have you been hit, kicked, punched, or otherwise hurt by someone within the past year? If so, by whom?: No Do you feel safe in your current relationship?: No Current Relationship Is there a partner from a previous relationship who is making you feel unsafe now?: No Are you made to feel afraid or neglected: No Advance Directives: No Advance Directives Information Provided: No Advance Directives Date on File: 04/25/21 Do you have a plan to hurt others: No Plan Recently lost weight without trying: Unsure Eating poorly because of decreased appetite: No Nutrition Risks: On aspiration precautions and Receiving home tube feeding or CPN Poor oral hygiene: No service: No Current occupational status: disabled Meds Allergies Allergy/AdvReac Type Severity Reaction Status Date / Time Seasonal Allergies Allergy Intermediate Eye Verified 03/15/24 12:04 Drainage codeine Allergy Mild Rash Verified 03/15/24 12:04 [From Tylenol-Codeine #3] levofloxacin [From Levaquin] Allergy Mild Rash Verified 03/15/24 12:04 metoclopramide [From Reglan] Allergy Mild Rash Verified 03/15/24 12:04 acetaminophen Allergy Unknown Rash Verified 03/15/24 12:04 [Tylenol-Codeine #3] Penicillins [PENICILLINS] Allergy Unknown Rash Verified 03/15/24 12:04 ibuprofen [From Motrin] AdvReac Unknown Reflux Verified 03/15/24 12:04 Active Medications: Current Medications Albuterol Sulfate (Albuterol Sulfate 90 Mcg 8 Gm Inhaler) 2 puff INHALE Q6H PRN PRN Reason: wheezing Albuterol/Ipratropium (Albuterol/Iprat 2.5/0.5mg 3 Ml Ampul.Neb) 3 ml INHALE RQ4H WHILE AWAKE [facility] Last Admin: 03/16/24 11:09 Dose: 3 ml Amlodipine Besylate (Amlodipine Besylate 5 Mg Tablet) 5 mg G-TUBE DAILY [facility]; Protocol Last Admin: 03/16/24 09:00 Dose: Not Given Bictegravir/Emtricitabine/Tenofovir (Bictegrav/Emtricit/Tenofov Ala Tablet) 1 tab PO DAILY [facility] Last Admin: 03/16/24 11:23 Dose: 1 tab Calcium Carbonate (Calcium Carbonate 750 Mg Tab.Chew) 750 mg PO Q4H PRN PRN Reason: Heartburn Calcium Carbonate/Cholecalciferol (Calcium + Vitamin D 250 Mg Tablet) 250 mg G- TUBE BID@1200,1800 [facility] Last Admin: 03/16/24 11:24 Dose: 250 mg Chlorhexidine Gluconate (Chlorhexidine Gluc Oral Rinse 15 Ml Mouthwash) 15 ml BUCCAL QID [facility] Last Admin: 03/16/24 11:23 Dose: 15 ml Clonazepam (Clonazepam 1 Mg Tablet) 1 mg G-TUBE DAILY [facility] Last Admin: 03/16/24 11:23 Dose: 1 mg Diphenhydramine HCl (Diphenhydramine Hcl 25 Mg Capsule) 50 mg G-TUBE BEDTIME [facility] Last Admin: 03/15/24 22:50 Dose: 50 mg Ferrous Sulfate (Ferrous Sulfate 324 Mg Tablet.) 324 mg PO BID [facility] Last Admin: 03/16/24 09:00 Dose: Not Given Gabapentin (Gabapentin 600 Mg Tablet) 600 mg G-TUBE TID [facility] Last Admin: 03/16/24 11:23 Dose: 600 mg Heparin Sodium (Porcine) (Heparin Sodium,Porcine 5,000 Unit/Ml Vial) 5,000 unit SUBCUT Q12H [facility] Last Admin: 03/16/24 06:05 Dose: 5,000 unit Sodium Chloride (Ns) 1,000 mls @ 100 mls/hr IVCONT .Q10H [facility] Last Admin: 03/16/24 04:26 Dose: 100 mls/hr Fluconazole (Diflucan) 200 mg in 100 mls @ 100 mls/hr IV Q24H [facility] Cefepime HCl 2 gm/ Sodium (Chloride) 50 mls @ 100 mls/hr IV Q8H [facility] Last Admin: 03/16/24 11:07 Dose: 100 mls/hr Vancomycin HCl 750 mg/ Sodium (Chloride) 265 mls @ 265 mls/hr IV Q12H [facility] Last Admin: 03/16/24 11:12 Dose: 265 mls/hr Magnesium Hydroxide (Milk Of Magnesia 30 Ml Oral.Susp) 30 ml PO DAILY PRN PRN Reason: Constipation Melatonin (Melatonin 3 Mg Tablet) 6 mg PO BEDTIME PRN PRN Reason: Insomnia Mirtazapine (Mirtazapine 30 Mg Tablet) 60 mg G-TUBE BEDTIME [facility] Last Admin: 03/15/24 22:49 Dose: 60 mg Morphine Sulfate (Morphine Sulfate 2 Mg/Ml Cartridge) 2 mg IVPUSH Q4H PRN; Protocol PRN Reason: Pain, Severe (Pain Scale 7-10) Last Admin: 03/16/24 11:22 Dose: 2 mg Omeprazole (Omeprazole/Na Bicarb Oral Susp 20 Mg/10 Ml Ud Cup) 10 mg G-TUBE DAILY@0630 [facility] Last Admin: 03/16/24 06:01 Dose: 10 mg Pharmacy Consult (Consult Rx Vancomycin Dosing) 1 each MISCELLANE DAILY PRN PRN Reason: Consult order Propranolol HCl (Propranolol Hcl La 60 Mg Cap.Sa.24h) 120 mg PO DAILY [facility]; Protocol Last Admin: 03/16/24 09:00 Dose: Not Given Risperidone (Risperidone 3 Mg Tablet) 3 mg G-TUBE BEDTIME [facility] Last Admin: 03/15/24 22:50 Dose: 3 mg Sodium Chloride (0.9 % Sodium Chloride Flush 3 Ml Syringe) 3 ml IVFLUSH QSHIFT [facility] Last Admin: 03/16/24 10:15 Dose: 3 ml Tramadol HCl (Tramadol Hcl 50 Mg Tablet) 50 mg G-TUBE BID PRN PRN Reason: Pain, Moderate(Pain Scale 4-6) Home Medications ?Medication ?Instructions ?Recorded ?Confirmed ?Last Taken ?Type calcium carbonate 600 mg-vitamin 1 tab feeding tube BID@1200,1800 12/16/23 03/15/24 03/06/24 History D3 20 mcg (800 unit) tablet diphenhydramine HCl 25 mg tablet 50 mg feeding tube BEDTIME 12/16/23 03/15/24 03/06/24 History (Banophen) ferrous gluconate 324 mg (38 mg 324 mg feeding tube BID 12/16/23 03/15/24 03/06/24 History iron) tablet risperidone 3 mg tablet 3 mg feeding tube BEDTIME 12/16/23 03/15/24 03/06/24 History tramadol 50 mg tablet 50 mg feeding tube BID PRN Pain 12/16/23 03/15/24 03/06/24 History (Scale Score 7-10) omeprazole 10 mg capsule,delayed 10 mg feeding tube DAILY@0630 01/10/24 03/15/24 03/06/24 History release albuterol sulfate 90 mcg/actuation 2 puff inhalation Q6H PRN wheezing 03/07/24 03/15/24 Unknown History aerosol inhaler (Ventolin HFA) chlorhexidine gluconate 0.12 % 15 ml PO QID 03/07/24 03/15/24 03/06/24 History mouthwash propranolol 120 mg capsule,24 120 mg PO DAILY 03/07/24 03/15/24 03/06/24 History hr,extended release Physical Exam 2 Vital Signs: Vital Signs: Last Vital Signs Temp 98.0 F 03/16/24 08:00 Pulse 60 03/16/24 11:09 Resp 20 03/16/24 11:09 BP 91/51 L 03/16/24 09:00 Pulse Ox 93 03/16/24 08:00 O2 Del Method High Flow Nasal C annula 03/16/24 08:00 O2 Flow Rate 40 03/16/24 08:00 FiO2 40 03/16/24 08:00 Oxygen Flow Rate 4 03/15/24 12:00 BMI result Body Mass Index 18.6 Neuro: Other: He is alert and awake with normal spontaneity and fluency of speech though he did not speak Romanian. Face was symmetrical and there was no ptosis. Extraocular muscles were intact. Generalized muscle atrophy was noted. Deep tendon reflexes were absent with flexor plantars. Results Labs 03/16/24 08:04 03/16/24 08:04 Labs: Short CBC 03/15/24 03/16/24 Range/Units 12:20 08:04 WBC 5.2 18.4 H (4.8-10.8) X10*3/uL Hgb 15.0 13.5 L (14.0-18.0) g/dl Hct 43.0 40.1 L (42.0-52.0) % Plt Count 167 152 L (160-400) X10*3/uL BMP 03/15/24 03/16/24 12:51 08:04 Sodium 140 141 Potassium 4.2 4.0 Chloride 103 110 H Carbon Dioxide 27 21 L BUN 14 15 Creatinine 0.91 0.76 Calcium 10.3 H D 8.4 D Cardiac Enzymes 03/16/24 Range/Units 08:04 Total Creatine Kinase 61 (38-174) U/L Liver Function 03/15/24 Range/Units 12:51 Total Bilirubin 0.7 (0.0-1.0) mg/dL AST 36 (5-37) U/L ALT 40 (0-40) U/L Alkaline Phosphatase 48 (39-117) U/L Albumin 4.3 (3.5-5.0) g/dL Urine 03/15/24 Range/Units 16:39 Urine Color Yellow Urine Appearance Cloudy Urine pH 7.5 (5.0-9.0) Ur Specific [place] 1.010 (1.005-1.025) Urine Protein Negative (Neg-Trace) mg/dL Urine Glucose (UA) Negative (Negative) mg/dL Noncontrast head CT did not reveal any significant abnormality. Microbiology Microbiology Results: Microbiology 03/15/24 12:18 Blood - Venous Blood Culture - Preliminary Prelim: GPC Gram Stain only Assessment and Plan (1) Encephalopathy: Qualifiers: Encephalopathy type: toxic metabolic Qualified Code(s): G92.8 - Other toxic encephalopathy Status: Acute 59 years old man with underlying HIV disease and difficult asthma now being treated for pneumonia. 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 Neuromuscular disorder such as HIV neuropathy is also a possibility and can be explored with an outpatient EMG nerve conduction study. I recommend repeating his brain MRI with and without contrast. Otherwise mainstay of treatment is control of HIV disease, and the acute illness of pneumonia that is causing metabolic toxic encephalopathy on top of underlying cerebral pathology. Procedures Date of Service Date of Service: 03/16/24
[2024-03-16] MEDS: Fluconazole in NaCl,Iso-Osm 200 MG/100 ML PIGGYBACK 100 MG IV (20:11)
[2024-03-16] MEDS: Melatonin 3 MG TABLET 6 MG PO (21:53)
[2024-03-16] MEDS: diphenhydrAMINE HCL 25 MG CAPSULE 50 MG G-TUBE (21:53)
[2024-03-16] MEDS: Mirtazapine 30 MG TABLET 60 MG G-TUBE (21:55)
[2024-03-17] VITALS (11 sets, daily range): BP systolic 101–127; BP diastolic 61–77; PULSE 54–72; RESP 14–20; TEMP 36.1–36.8; O2SAT 92–96; BMI 18.6
[2024-03-17] MEDS: 0.9 % Sodium Chloride Flush 3 ML SYRINGE IVFLUSH ×3 (04:11→19:57)
[2024-03-17] MEDS: cefEPime HCl 2 GM in 0.9 % Sodium Chloride 50 ML IV ×3 (04:11→19:56)
[2024-03-17] MEDS: 0.9 % Sodium Chloride 1,000 ML 100 ML IVCONT (04:12)
[2024-03-17] MEDS: Omeprazole/Na Bicarb Oral Susp 20 MG/10 ML UD Cup 10 MG G-TUBE (05:28)
[2024-03-17] MEDS: Heparin Sodium,Porcine 5,000 UNIT/ML VIAL 5000 UNIT SUBCUT ×2 (06:23→18:41)
[2024-03-17 06:29] LABS: Hematocrit 35.7 % (42.0-52.0); Hemoglobin 12.1 g/dl (14.0-18.0); Mean Corpuscular HGB Conc 33.9 g/dl (31.0-36.0); Mean Corpuscular Hemoglobin 34.2 pg (27.0-33.0); Mean Corpuscular Volume 100.8 fL (80.0-98.0); Mean Platelet Volume 12.8 fL (9.4-12.4); Platelet Count 134 X10*3/uL (160-400); Red Blood Count 3.54 X10*6/uL (4.60-5.80); Red Cell Distribution Width 13.9 % (11.0-16.0); White Blood Count 12.1 X10*3/uL (4.8-10.8)
[2024-03-17 06:50] LABS: Anion Gap 9 (12-20); Blood Urea Nitrogen 13 mg/dL (9-16); Carbon Dioxide 25 mmol/L (22-29); Chloride 113 mmol/L (96-108); Creatinine Clr Calc Pharmacy 88.2; Estimated Glomerular Filt Rate > 60; Glucose Fasting 92 mg/dL (60-99); Potassium 3.5 mmol/L (3.3-5.1); Sodium 143 mmol/L (135-145)
[2024-03-17] MEDS: Albuterol/Iprat 2.5/0.5MG 3 ML AMPUL.NEB INHALE ×4 (07:54→20:38)
[2024-03-17 07:58] LABS: Vancomycin Trough 18.6 mcg/mL (10.0-20.0)
--- NOTE | 2024-03-17 08:03 | HE.PHANOTE ---
Re: Vanco Renal function improving. Trough returned as 18.6. Continue current dose of 750mg Q12H, with predicted AUC 565 adn predicted trough 17.8. Next trough 03/18 at 1900.
--- NOTE | 2024-03-17 08:53 | HO.PM.IMPN ---
Subjective Subjective Date of Service: 03/17/24 Interval History: sob but improved Physical Exam Vital Signs: Vital Signs: Last Vital Signs Temp 97.8 F 03/17/24 07:53 Pulse 58 03/17/24 07:54 Resp 14 03/17/24 07:54 BP 122/72 03/17/24 07:53 Pulse Ox 96 03/17/24 07:53 O2 Del Method Nasal Cannula 03/17/24 07:53 O2 Flow Rate 2 03/17/24 07:53 FiO2 40 03/16/24 08:00 Oxygen Flow Rate 4 03/15/24 12:00 BMI result Body Mass Index 18.6 diffuse muscle wasting, weak/ill appearing, more alert than previuos, able to talk softly, following commands, lungs diminished Objective Data Active Medications Albuterol Sulfate (Albuterol Sulfate 90 Mcg 8 Gm Inhaler) 2 puff INHALE Q6H PRN PRN Reason: wheezing Albuterol/Ipratropium (Albuterol/Iprat 2.5/0.5mg 3 Ml Ampul.Neb) 3 ml INHALE RQ4H WHILE AWAKE [facility] Last Admin: 03/17/24 07:54 Dose: 3 ml Documented By: NALLELY Amlodipine Besylate (Amlodipine Besylate 5 Mg Tablet) 5 mg G-TUBE DAILY [facility]; Protocol Last Admin: 03/16/24 09:00 Dose: Not Given Documented By: ANAHI Non-Admin Reason: bp 91/51 Bictegravir/Emtricitabine/Tenofovir (Bictegrav/Emtricit/Tenofov Ala Tablet) 1 tab PO DAILY [facility] Last Admin: 03/16/24 11:23 Dose: 1 tab Documented By: ANAHI Calcium Carbonate (Calcium Carbonate 750 Mg Tab.Chew) 750 mg PO Q4H PRN PRN Reason: Heartburn Calcium Carbonate/Cholecalciferol (Calcium + Vitamin D 250 Mg Tablet) 250 mg G-TUBE BID@1200,1800 [facility] Last Admin: 03/16/24 18:40 Dose: 250 mg Documented By: ANAHI Chlorhexidine Gluconate (Chlorhexidine Gluc Oral Rinse 15 Ml Mouthwash) 15 ml BUCCAL QID [facility] Last Admin: 03/16/24 21:56 Dose: 15 ml Documented By: RENEE Clonazepam (Clonazepam 1 Mg Tablet) 1 mg G-TUBE DAILY [facility] Last Admin: 03/16/24 11:23 Dose: 1 mg Documented By: ANAHI Diphenhydramine HCl (Diphenhydramine Hcl 25 Mg Capsule) 50 mg G-TUBE BEDTIME [facility] Last Admin: 03/16/24 21:53 Dose: 50 mg Documented By: RENEE Ferrous Sulfate (Ferrous Sulfate 324 Mg Tablet.) 324 mg PO BID [facility] Last Admin: 03/17/24 08:46 Dose: Not Given Documented By: ACE Non-Admin Reason: EC cannot give via gtube Gabapentin (Gabapentin 600 Mg Tablet) 600 mg G-TUBE TID [facility] Last Admin: 03/16/24 21:16 Dose: Not Given Documented By: RENEE Non-Admin Reason: per Dr. Garrison barnard. bp 102/54. Heparin Sodium (Porcine) (Heparin Sodium,Porcine 5,000 Unit/Ml Vial) 5,000 unit SUBCUT Q12H [facility] Last Admin: 03/17/24 06:23 Dose: 5,000 unit Documented By: RENEE Fluconazole (Diflucan) 200 mg in 100 mls @ 100 mls/hr IV Q24H [facility] Last Infusion: 03/16/24 21:11 Dose: Infused Documented By: RENEE Cefepime HCl 2 gm/ Sodium (Chloride) 50 mls @ 100 mls/hr IV Q8H [facility] Last Infusion: 03/17/24 04:41 Dose: Infused Documented By: RENEE Vancomycin HCl 750 mg/ Sodium (Chloride) 265 mls @ 265 mls/hr IV Q12H [facility] Last Infusion: 03/16/24 22:56 Dose: Infused Documented By: RENEE Magnesium Hydroxide (Milk Of Magnesia 30 Ml Oral.Susp) 30 ml PO DAILY PRN PRN Reason: Constipation Melatonin (Melatonin 3 Mg Tablet) 6 mg PO BEDTIME PRN PRN Reason: Insomnia Last Admin: 03/16/24 21:53 Dose: 6 mg Documented By: RENEE Mirtazapine (Mirtazapine 30 Mg Tablet) 60 mg G-TUBE BEDTIME [facility] Last Admin: 03/16/24 21:55 Dose: 60 mg Documented By: RENEE Morphine Sulfate (Morphine Sulfate 2 Mg/Ml Cartridge) 2 mg IVPUSH Q4H PRN; Protocol PRN Reason: Pain, Severe (Pain Scale 7-10) Last Admin: 03/16/24 18:40 Dose: 2 mg Documented By: ANAHI Omeprazole (Omeprazole/Na Bicarb Oral Susp 20 Mg/10 Ml Ud Cup) 10 mg G-TUBE DAILY@0630 [facility] Last Admin: 03/17/24 05:28 Dose: 10 mg Documented By: RENEE Pharmacy Consult (Consult Rx Vancomycin Dosing) 1 each MISCELLANE DAILY PRN PRN Reason: Consult order Propranolol HCl (Propranolol Hcl La 60 Mg Cap.Sa.24h) 120 mg PO DAILY [facility]; Protocol Last Admin: 03/16/24 09:00 Dose: Not Given Documented By: ANAHI Non-Admin Reason: cannot be crushed for gtube Risperidone (Risperidone 3 Mg Tablet) 3 mg G-TUBE BEDTIME [facility] Last Admin: 03/15/24 22:50 Dose: 3 mg Documented By: ALEXY Sodium Chloride (0.9 % Sodium Chloride Flush 3 Ml Syringe) 3 ml IVFLUSH QSHIFT [facility] Last Admin: 03/17/24 08:45 Dose: Not Given Documented By: ACE Non-Admin Reason: IV Running Tramadol HCl (Tramadol Hcl 50 Mg Tablet) 50 mg G-TUBE BID PRN PRN Reason: Pain, Moderate(Pain Scale 4-6) Labs 03/17/24 05:54 03/17/24 05:54 Labs: Laboratory Results - last 24 hr 03/15/24 03/15/24 03/16/24 16:03 17:09 08:04 MCV MCH MCHC RDW Plt Count MPV Absolute Nucleated RBC Nucleated RBC % (auto) Anion Gap Estim Creat Clear Calc Estimated GFR Fasting Glucose Calcium Total Creatine Kinase 61 C-Reactive Protein < 0.10 Nasal Screen MRSA (PCR) POSITIVE A Nasal S. aureus Screen POSITIVE A Nasal MRSA/S.aureus Interp SEE NOTE Vancomycin Trough Respiratory Panel Cook See Note Adenovirus (Rapid PCR) Not Detected B.pert (TEM-PCR) Not Detected B.parapertussis DNA PCR Not Detected C. pneumoniae DNA (PCR) Not Detected Coronavirus OC43 (PCR) Not Detected Coronavirus HKU1 (PCR) Not Detected Coronavirus 229E (PCR) Not Detected Coronavirus NL63 (PCR) Not Detected Human Metapneumovir PCR Not Detected Influenza A (RT-PCR) Not Detected Influenza B (RT-PCR) Not Detected M. pneumoniae (PCR) Not Detected Parainfluenza 1 (PCR) Not Detected Parainfluenza 2 (PCR) Not Detected Parainfluenza 3 (PCR) Not Detected Parainfluenza 4 (PCR) Not Detected RSV (PCR) Not Detected Entero/Rhino (PCR) Not Detected SARS-CoV-2 RNA (RT-PCR) Not Detected 03/17/24 03/17/24 05:54 07:12 MCV 100.8 H MCH 34.2 H MCHC 33.9 RDW 13.9 Plt Count 134 L MPV 12.8 H Absolute Nucleated RBC 0.000 Nucleated RBC % (auto) 0.0 Anion Gap 9 L Estim Creat Clear Calc 88.2 Estimated GFR > 60 Fasting Glucose 92 Calcium 8.0 L Total Creatine Kinase C-Reactive Protein Nasal Screen MRSA (PCR) Nasal S. aureus Screen Nasal MRSA/S.aureus Interp Vancomycin Trough 18.6 Respiratory Panel Cook Adenovirus (Rapid PCR) B.pert (TEM-PCR) B.parapertussis DNA PCR C. pneumoniae DNA (PCR) Coronavirus OC43 (PCR) Coronavirus HKU1 (PCR) Coronavirus 229E (PCR) Coronavirus NL63 (PCR) Human Metapneumovir PCR Influenza A (RT-PCR) Influenza B (RT-PCR) M. pneumoniae (PCR) Parainfluenza 1 (PCR) Parainfluenza 2 (PCR) Parainfluenza 3 (PCR) Parainfluenza 4 (PCR) RSV (PCR) Entero/Rhino (PCR) SARS-CoV-2 RNA (RT-PCR) Microbiology Microbiology Results: Microbiology 03/15/24 12:27 Blood Culture - Preliminary Blood - Venous No growth after 24 hours. 03/15/24 12:18 Blood Culture - Preliminary Blood - Venous Prelim: GPC Gram Stain only Assessment and Plan (1) Acute hypoxemic respiratory failure: Status: Acute Plan 59M PMH severe persistent asthma with chronic hypoxic respiratory failure on home oxygen, s/p decortication for empyema/pleural effusion, HFrEF 40-45%, HIV on HAART, dysphagia s/p G feeding tube, hep C, depression presented with sob Acute on chronic hypoxemic respiratory failure due to pneumonia weaned off high flow, now on 2L CTA chest neagtive for PE but shows new LLL consolidation with worsening mucous plugging of both lower lobe bronchi. ?Infection and/or aspiration IV zosyn. Continue vanco while MRSA pending (initiated 03/15) duonebs q4h ID consult follow cbc, cultures Oral thrush diflucan ID consult Weakness pt eval Chronic dysphagia g tube, continue tube feeds nutrition consult HIV with FTT last viral load undeteactable, last cd4 219 check viral load, cd4 count LDH WNL ID consult continue biktarvy neuro appreciated - check MRI brain with and without contrast - ?hiv leukoencephalopathy Mood disorder holding risperdal for lethargy History of decortication due to empyema left hemithorax 12/2022 HFrEF clinically euvolemic dvt prophylaxis- heparin full code reason for continued hospitalization:hypoxia Quality Stroke Does the patient have a stroke diagnosis?: No VTE Prior VTE?: No VTE Risk Level:: Medical - moderate - high VTE Device Contraindication: Treatment Not Indicated VTE Drug Contraindication: N/A - Med Ordered
--- NOTE | 2024-03-17 09:23 | MHC.CLN ---
RE: CONSULT PT IS MODERATELY MALNOURISHED PT WITH MILDLY DEPLETED SUBCUTANEOUS FAT AND MUSCLE MASS WITH TF FOR NUTRITION SUPPORT FAMILIAR WITH PT FROM PREVIOUS ADMISSION SEE ALSO NUTRITION ASSESSMENT 03/07/24 WITH DX MALNUTRITION PT RECEIVING TF JEVITY 1.0 AT MAX GOAL RATE 65ML/HR AND 120ML FREE WATER FLUSHES Q 6HRS PROVIDES 1654KCALS (30.7KCALS/KG), 69G PROTEIN (1.2G/KG), 1783ML TOTAL WATER FROM FORMULA AND FLUSHES (33ML/KG) MONITOR TOLERANCE, RESIDUALS AND LYTES SEE ALSO FULL CLINICAL NUTRITION ASSESSMENT
[2024-03-17] MEDS: vancomycin HCL 750 MG in 0.9 % Sodium Chloride 250 ML 265 MG IV (09:41)
[2024-03-17] MEDS: clonazePAM 1 MG TABLET G-TUBE (09:42)
[2024-03-17] MEDS: Bictegrav/Emtricit/Tenofov Ala TABLET 1 TAB PO (09:42)
[2024-03-17] MEDS: Gabapentin 600 MG TABLET G-TUBE ×3 (09:42→19:56)
--- NOTE | 2024-03-17 10:56 | MHC.CM.PN ---
Per ROUNDS discussion, Patient is not yet medically cleared for dc (Hypoxia); home/resume services is the goal and CM will continue to follow.
[2024-03-17] MEDS: Chlorhexidine Gluc Oral Rinse 15 ML MOUTHWASH BUCCAL ×3 (11:08→16:26)
--- NOTE | 2024-03-17 11:50 | P.CDIM_ITS ---
PROVIDER RESPONSE TEXT: To clarify, the appropriate diagnosis supported by the clinical indicators: Malnutrition: moderate QUERY TEXT: PHYSICIAN'S DOCUMENTATION REQUEST Date of Query: 03/17/2024 11:20 AM EDT Patient Name: Benjamin Fall Admit Date: 03/15/2024 Dear Shawn Adorno, A review of the medical record indicates additional documentation may be needed. Please review below and update the documentation accordingly. Clinical Indicators: Clinical nutrition assessment note : Moderately malnourished with BMI 18.6 Mildly depleted subcutaneous fat and muscle mass with TF for nutrition support. If possible, please provide an associated diagnosis related to the abnormal BMI, such as: Malnutrition mild, moderate, severe Cachexia Anorexia Other (explain) Clinically unable to determine (explain) Thank you, Yoko Fuller, CCS, CDIS Use of terms such as suspected, likely, concern for, or probable (associated with a specific diagnosi s that is being evaluated, monitored, or treated as if it exists) are acceptable and can be coded in the inpatient se tting, when documented at the time of discharge. Please use your independent medical judgment in providing your response. THIS QUERY IS PART OF THE PERMANENT MEDICAL RECORD
[2024-03-17] MEDS: gadobutroL 7.5 ML VIAL IVPUSH (13:25)
[2024-03-17] MEDS: Calcium + Vitamin D 250 MG TABLET G-TUBE ×2 (13:35→16:33)
[2024-03-17] MEDS: Morphine Sulfate 2 MG/ML CARTRIDGE IVPUSH (16:25)
--- NOTE | 2024-03-17 16:44 | P.CNID_ITS ---
History of Present Illness Data of Consult Service Date: 03/17/24 Requesting physician: Shawn Adorno Primary Care Provider: Unknown Physician HPI Reason for consult: chronic bronchiectasis He presents with cough and shortness of breath. He has chronic bronchiectasis and aspiration acting like ANNA with chronic cough but dont see any ANNA He has oxygen saturation of 77% on admission. He is using oxygen now. Review of Systems 2 Review of Systems: Yes all other systems are reviewed and are negative PMFSH Past Medical History Medical History Asthma Dysphagia Adult failure to thrive Adult failure to thrive Multiple rib fractures History of empyema of pleura (01/05/23) Hypertension Closed fracture of leg Hepatitis C Kidney stones Pleuritic chest pain Pneumonia Substance abuse Hemorrhoids Depression HIV (human immunodeficiency virus infection) Asthma Family History Family history: reviewed and not pertinent Surgical History Surgical History H/O hemorrhoidectomy Social History Social History Household Members: Other Household Members Other:: lives with [facility] Housing: Apartment Do you presently have visiting nurse or other home services: Yes Alcohol intake: never Patient Tobacco Use Status: Former Tobacco user Tobacco use type: Cigarette e-Cigarette/Vaping Use: Never Used Second Hand Smoke Exposure: No Use of substances other than those prescribed or required for medical reasons: No Substance Use Type: Crack/Cocaine Currently Displaying Signs/Symptoms of Drug Intoxication Withdrawal: No Have you been hit, kicked, punched, or otherwise hurt by someone within the past year? If so, by whom?: No Do you feel safe in your current relationship?: No Current Relationship Is there a partner from a previous relationship who is making you feel unsafe now?: No Are you made to feel afraid or neglected: No Advance Directives: No Advance Directives Information Provided: No Advance Directives Date on File: 04/25/21 Do you have a plan to hurt others: No Plan Recently lost weight without trying: Unsure Eating poorly because of decreased appetite: No Nutrition Risks: On aspiration precautions and Receiving home tube feeding or CPN Poor oral hygiene: No service: No Current occupational status: disabled Meds Allergies Allergy/AdvReac Type Severity Reaction Status Date / Time Seasonal Allergies Allergy Intermediate Eye Verified 03/15/24 12:04 Drainage codeine Allergy Mild Rash Verified 03/15/24 12:04 [From Tylenol-Codeine #3] levofloxacin [From Levaquin] Allergy Mild Rash Verified 03/15/24 12:04 metoclopramide [From Reglan] Allergy Mild Rash Verified 03/15/24 12:04 acetaminophen Allergy Unknown Rash Verified 03/15/24 12:04 [Tylenol-Codeine #3] Penicillins [PENICILLINS] Allergy Unknown Rash Verified 03/15/24 12:04 ibuprofen [From Motrin] AdvReac Unknown Reflux Verified 03/15/24 12:04 Active Medications: Current Medications Albuterol Sulfate (Albuterol Sulfate 90 Mcg 8 Gm Inhaler) 2 puff INHALE Q6H PRN PRN Reason: wheezing Albuterol/Ipratropium (Albuterol/Iprat 2.5/0.5mg 3 Ml Ampul.Neb) 3 ml INHALE RQ4H WHILE AWAKE [facility] Last Admin: 03/17/24 15:10 Dose: 3 ml Amlodipine Besylate (Amlodipine Besylate 5 Mg Tablet) 5 mg G-TUBE DAILY [facility]; Protocol Last Admin: 03/16/24 09:00 Dose: Not Given Bictegravir/Emtricitabine/Tenofovir (Bictegrav/Emtricit/Tenofov Ala Tablet) 1 tab PO DAILY [facility] Last Admin: 03/17/24 09:42 Dose: 1 tab Calcium Carbonate (Calcium Carbonate 750 Mg Tab.Chew) 750 mg PO Q4H PRN PRN Reason: Heartburn Calcium Carbonate/Cholecalciferol (Calcium + Vitamin D 250 Mg Tablet) 250 mg G- TUBE BID@1200,1800 [facility] Last Admin: 03/17/24 16:33 Dose: 250 mg Chlorhexidine Gluconate (Chlorhexidine Gluc Oral Rinse 15 Ml Mouthwash) 15 ml BUCCAL QID [facility] Last Admin: 03/17/24 16:26 Dose: 15 ml Clonazepam (Clonazepam 1 Mg Tablet) 1 mg G-TUBE DAILY [facility] Last Admin: 03/17/24 09:42 Dose: 1 mg Diphenhydramine HCl (Diphenhydramine Hcl 25 Mg Capsule) 50 mg G-TUBE BEDTIME [facility] Last Admin: 03/16/24 21:53 Dose: 50 mg Ferrous Sulfate (Ferrous Sulfate 324 Mg Tablet.Dr) 324 mg PO BID [facility] Last Admin: 03/17/24 08:46 Dose: Not Given Gabapentin (Gabapentin 600 Mg Tablet) 600 mg G-TUBE TID [facility] Last Admin: 03/17/24 15:30 Dose: 600 mg Heparin Sodium (Porcine) (Heparin Sodium,Porcine 5,000 Unit/Ml Vial) 5,000 unit SUBCUT Q12H [facility] Last Admin: 03/17/24 06:23 Dose: 5,000 unit Fluconazole (Diflucan) 200 mg in 100 mls @ 100 mls/hr IV Q24H [facility] Last Infusion: 03/16/24 21:11 Dose: Infused Cefepime HCl 2 gm/ Sodium (Chloride) 50 mls @ 100 mls/hr IV Q8H [facility] Last Infusion: 03/17/24 14:13 Dose: Infused Linezolid (Zyvox/D5w) 600 mg in 300 mls @ 300 mls/hr IV Q12H [facility] Magnesium Hydroxide (Milk Of Magnesia 30 Ml Oral.Susp) 30 ml PO DAILY PRN PRN Reason: Constipation Melatonin (Melatonin 3 Mg Tablet) 6 mg PO BEDTIME PRN PRN Reason: Insomnia Last Admin: 03/16/24 21:53 Dose: 6 mg Mirtazapine (Mirtazapine 30 Mg Tablet) 60 mg G-TUBE BEDTIME [facility] Last Admin: 03/16/24 21:55 Dose: 60 mg Morphine Sulfate (Morphine Sulfate 2 Mg/Ml Cartridge) 2 mg IVPUSH Q4H PRN; Protocol PRN Reason: Pain, Severe (Pain Scale 7-10) Last Admin: 03/17/24 16:25 Dose: 2 mg Omeprazole (Omeprazole/Na Bicarb Oral Susp 20 Mg/10 Ml Ud Cup) 10 mg G-TUBE DAILY@0630 [facility] Last Admin: 03/17/24 05:28 Dose: 10 mg Propranolol HCl (Propranolol Hcl La 60 Mg Cap.Sa.24h) 120 mg PO DAILY [facility]; Protocol Last Admin: 03/16/24 09:00 Dose: Not Given Risperidone (Risperidone 3 Mg Tablet) 3 mg G-TUBE BEDTIME [facility] Last Admin: 03/15/24 22:50 Dose: 3 mg Sodium Chloride (0.9 % Sodium Chloride Flush 3 Ml Syringe) 3 ml IVFLUSH QSHIFT [facility] Last Admin: 03/17/24 16:25 Dose: 3 ml Tramadol HCl (Tramadol Hcl 50 Mg Tablet) 50 mg G-TUBE BID PRN PRN Reason: Pain, Moderate(Pain Scale 4-6) Home Medications ?Medication ?Instructions ?Recorded ?Confirmed ?Last Taken ?Type calcium carbonate 600 mg-vitamin 1 tab feeding tube BID@1200,1800 12/16/23 03/15/24 03/06/24 History D3 20 mcg (800 unit) tablet diphenhydramine HCl 25 mg tablet 50 mg feeding tube BEDTIME 12/16/23 03/15/24 03/06/24 History (Banophen) ferrous gluconate 324 mg (38 mg 324 mg feeding tube BID 12/16/23 03/15/24 03/06/24 History iron) tablet risperidone 3 mg tablet 3 mg feeding tube BEDTIME 12/16/23 03/15/24 03/06/24 History tramadol 50 mg tablet 50 mg feeding tube BID PRN Pain 12/16/23 03/15/24 03/06/24 History (Scale Score 7-10) omeprazole 10 mg capsule,delayed 10 mg feeding tube DAILY@0630 01/10/24 03/15/24 03/06/24 History release albuterol sulfate 90 mcg/actuation 2 puff inhalation Q6H PRN wheezing 03/07/24 03/15/24 Unknown History aerosol inhaler (Ventolin HFA) chlorhexidine gluconate 0.12 % 15 ml PO QID 03/07/24 03/15/24 03/06/24 History mouthwash propranolol 120 mg capsule,24 120 mg PO DAILY 03/07/24 03/15/24 03/06/24 History hr,extended release Physical Exam 2 Vital Signs: Vital Signs: Last Vital Signs Temp 97.0 F 03/17/24 16:00 Pulse 60 03/17/24 16:00 Resp 20 03/17/24 16:00 BP 127/77 03/17/24 16:00 Pulse Ox 96 03/17/24 07:53 O2 Del Method Nasal Cannula 03/17/24 16:00 O2 Flow Rate 2 03/17/24 16:00 FiO2 40 03/16/24 08:00 Oxygen Flow Rate 4 03/15/24 12:00 BMI result Body Mass Index 18.6 Const: General: cooperative HEENT: Head: Yes normal to inspection Face and sinus: Yes normal facial exam Mouth: Normal oral and palatal mucosa present Teeth and gingiva: d entition normal Eyes: General: appearance normal, both eyes and all related structures P upils: Equal, round and reactive pupils present Resp: Effort & Inspection: normal respiratory effort Cardio: Rate: regular rate Rhythm: regular rhythm GI: Palpation (GI): Soft to palpation and nontender : General: Yes no CVA tenderness Back/Spine/Pelvis: Back: no CVA tenderness Skin: General skin exam: no rashes or lesions noted Neuro: General: moves all extremities Cranial nerves: Yes Equal, round and reactive pupils present Extrem: General: Yes normal to inspection Psych: Appearance: grossly normal Results Labs 03/17/24 05:54 03/17/24 05:54 Labs: Short CBC 03/17/24 Range/Units 05:54 WBC 12.1 H (4.8-10.8) X10*3/uL Hgb 12.1 L (14.0-18.0) g/dl Hct 35.7 L (42.0-52.0) % Plt Count 134 L (160-400) X10*3/uL BMP 03/17/24 05:54 Sodium 143 Potassium 3.5 Chloride 113 H Carbon Dioxide 25 BUN 13 Creatinine 0.68 Calcium 8.0 L Microbiology Microbiology Results: Microbiology 03/15/24 12:27 Blood - Venous Blood Culture - Preliminary No growth after 48 hours. 03/15/24 12:18 Blood - Venous Blood Culture - Preliminary Coag negative Staphylococcus Assessment and Plan (1) Encephalopathy: Qualifiers: Encephalopathy type: toxic metabolic Qualified Code(s): G92.8 - Other toxic encephalopathy Status: Acute (2) Pulmonary aspiration: Status: Acute (3) Acute hypoxemic respiratory failure: Status: Acute Plan MRSA positive nares. Po Linezolid for a week.
[2024-03-17] MEDS: Fluconazole in NaCl,Iso-Osm 200 MG/100 ML PIGGYBACK 100 MG IV (17:39)
[2024-03-17] MEDS: Mirtazapine 30 MG TABLET 60 MG G-TUBE (19:56)
[2024-03-17] MEDS: diphenhydrAMINE HCL 25 MG CAPSULE 50 MG G-TUBE (19:56)
[2024-03-17] MEDS: traMADoL HCL 50 MG TABLET G-TUBE (19:57)
[2024-03-17] MEDS: Linezolid/D5W 600 MG/300 ML PIGGYBACK 300 MG IV (20:56)
[2024-03-18] VITALS (10 sets, daily range): BP systolic 106–126; BP diastolic 70–82; PULSE 50–71; RESP 16–20; TEMP 36.3–37.1; O2SAT 93–98
[2024-03-18] MEDS: cefEPime HCl 2 GM in 0.9 % Sodium Chloride 50 ML IV ×3 (03:48→20:10)
[2024-03-18] MEDS: Heparin Sodium,Porcine 5,000 UNIT/ML VIAL 5000 UNIT SUBCUT (05:56)
[2024-03-18] MEDS: Omeprazole/Na Bicarb Oral Susp 20 MG/10 ML UD Cup 10 MG G-TUBE (05:56)
[2024-03-18 06:26] LABS: Hematocrit 38.3 % (42.0-52.0); Hemoglobin 13.3 g/dl (14.0-18.0); Mean Corpuscular HGB Conc 34.7 g/dl (31.0-36.0); Mean Platelet Volume 12.3 fL (9.4-12.4); Platelet Count 146 X10*3/uL (160-400); Red Blood Count 3.91 X10*6/uL (4.60-5.80); Red Cell Distribution Width 13.8 % (11.0-16.0); White Blood Count 5.6 X10*3/uL (4.8-10.8)
[2024-03-18 06:54] LABS: Anion Gap 11 (12-20); Blood Urea Nitrogen 9 mg/dL (9-16); Calcium 8.5 mg/dL (8.4-10.2); Carbon Dioxide 28 mmol/L (22-29); Chloride 104 mmol/L (96-108); Creatinine Clr Calc Pharmacy 92.3; Estimated Glomerular Filt Rate > 60; Glucose Fasting 115 mg/dL (60-99); Potassium 3.4 mmol/L (3.3-5.1); Sodium 140 mmol/L (135-145)
[2024-03-18] MEDS: Albuterol/Iprat 2.5/0.5MG 3 ML AMPUL.NEB INHALE ×4 (07:12→19:32)
[2024-03-18] MEDS: clonazePAM 1 MG TABLET G-TUBE (07:55)
[2024-03-18] MEDS: Chlorhexidine Gluc Oral Rinse 15 ML MOUTHWASH BUCCAL ×4 (07:55→20:10)
[2024-03-18] MEDS: Bictegrav/Emtricit/Tenofov Ala TABLET 1 TAB PO (07:55)
[2024-03-18] MEDS: Ferrous Sulfate 324 MG TABLET.DR PO ×2 (07:55→20:11)
[2024-03-18] MEDS: Linezolid/D5W 600 MG/300 ML PIGGYBACK 300 MG IV ×2 (07:55→20:52)
[2024-03-18] MEDS: Gabapentin 600 MG TABLET G-TUBE ×3 (07:56→20:11)
[2024-03-18] MEDS: 0.9 % Sodium Chloride Flush 3 ML SYRINGE IVFLUSH ×3 (07:56→20:12)
[2024-03-18 08:46] LABS: Syphilis Screen Nonreactive (Nonreactive)
[2024-03-18] MEDS: traMADoL HCL 50 MG TABLET G-TUBE (11:34)
[2024-03-18] MEDS: Calcium + Vitamin D 250 MG TABLET G-TUBE ×2 (11:34→16:58)
--- NOTE | 2024-03-18 11:35 | HO.PM.IMPN ---
Subjective Subjective Date of Service: 03/18/24 Interval History: some improvement, still very weak and ill appearing Physical Exam Vital Signs: Vital Signs: Last Vital Signs Temp 97.8 F 03/18/24 11:16 Pulse 70 03/18/24 11:16 Resp 18 03/18/24 11:16 BP 106/70 03/18/24 11:16 Pulse Ox 93 03/18/24 11:16 O2 Del Method Nasal Cannula 03/18/24 11:16 O2 Flow Rate 2 03/18/24 11:16 FiO2 40 03/16/24 08:00 Oxygen Flow Rate 4 03/15/24 12:00 BMI result Body Mass Index 18.6 diffuse muscle wasting, weak/ill appearing, more alert than previuos, able to talk softly, following commands, lungs diminished Objective Data Active Medications Albuterol Sulfate (Albuterol Sulfate 90 Mcg 8 Gm Inhaler) 2 puff INHALE Q6H PRN PRN Reason: wheezing Albuterol/Ipratropium (Albuterol/Iprat 2.5/0.5mg 3 Ml Ampul.Neb) 3 ml INHALE RQ4H WHILE AWAKE [facility] Last Admin: 03/18/24 11:22 Dose: 3 ml Documented By: JANN Amlodipine Besylate (Amlodipine Besylate 5 Mg Tablet) 5 mg G-TUBE DAILY [facility]; Protocol Last Admin: 03/16/24 09:00 Dose: Not Given Documented By: ANAHI Non-Admin Reason: bp 91/51 Bictegravir/Emtricitabine/Tenofovir (Bictegrav/Emtricit/Tenofov Ala Tablet) 1 tab PO DAILY [facility] Last Admin: 03/18/24 07:55 Dose: 1 tab Documented By: QUETA Calcium Carbonate (Calcium Carbonate 750 Mg Tab.Chew) 750 mg PO Q4H PRN PRN Reason: Heartburn Calcium Carbonate/Cholecalciferol (Calcium + Vitamin D 250 Mg Tablet) 250 mg G-TUBE BID@1200,1800 [facility] Last Admin: 03/17/24 16:33 Dose: 250 mg Documented By: ACE Chlorhexidine Gluconate (Chlorhexidine Gluc Oral Rinse 15 Ml Mouthwash) 15 ml BUCCAL QID [facility] Last Admin: 03/18/24 07:55 Dose: 15 ml Documented By: QUETA Clonazepam (Clonazepam 1 Mg Tablet) 1 mg G-TUBE DAILY [facility] Last Admin: 03/18/24 07:55 Dose: 1 mg Documented By: QUETA Diphenhydramine HCl (Diphenhydramine Hcl 25 Mg Capsule) 50 mg G-TUBE BEDTIME [facility] Last Admin: 03/17/24 19:56 Dose: 50 mg Documented By: RENEE Ferrous Sulfate (Ferrous Sulfate 324 Mg Tablet.Dr) 324 mg PO BID [facility] Last Admin: 03/18/24 07:55 Dose: 324 mg Documented By: QUETA Gabapentin (Gabapentin 600 Mg Tablet) 600 mg G-TUBE TID [facility] Last Admin: 03/18/24 07:56 Dose: 600 mg Documented By: QUETA Heparin Sodium (Porcine) (Heparin Sodium,Porcine 5,000 Unit/Ml Vial) 5,000 unit SUBCUT Q12H [facility] Last Admin: 03/18/24 05:56 Dose: 5,000 unit Documented By: RENEE Fluconazole (Diflucan) 200 mg in 100 mls @ 100 mls/hr IV Q24H [facility] Last Infusion: 03/17/24 18:39 Dose: Infused Documented By: ACE Cefepime HCl 2 gm/ Sodium (Chloride) 50 mls @ 100 mls/hr IV Q8H [facility] Last Infusion: 03/18/24 04:18 Dose: Infused Documented By: RENEE Linezolid (Zyvox/D5w) 600 mg in 300 mls @ 300 mls/hr IV Q12H [facility] Last Admin: 03/18/24 07:55 Dose: 300 mls/hr Documented By: QUETA Magnesium Hydroxide (Milk Of Magnesia 30 Ml Oral.Susp) 30 ml PO DAILY PRN PRN Reason: Constipation Melatonin (Melatonin 3 Mg Tablet) 6 mg PO BEDTIME PRN PRN Reason: Insomnia Last Admin: 03/16/24 21:53 Dose: 6 mg Documented By: RENEE Mirtazapine (Mirtazapine 30 Mg Tablet) 60 mg G-TUBE BEDTIME [facility] Last Admin: 03/17/24 19:56 Dose: 60 mg Documented By: RENEE Morphine Sulfate (Morphine Sulfate 2 Mg/Ml Cartridge) 2 mg IVPUSH Q4H PRN; Protocol PRN Reason: Pain, Severe (Pain Scale 7-10) Last Admin: 03/17/24 16:25 Dose: 2 mg Documented By: ACE Omeprazole (Omeprazole/Na Bicarb Oral Susp 20 Mg/10 Ml Ud Cup) 10 mg G-TUBE DAILY@0630 [facility] Last Admin: 03/18/24 05:56 Dose: 10 mg Documented By: RENEE Propranolol HCl (Propranolol Hcl La 60 Mg Cap.Sa.24h) 120 mg PO DAILY [facility]; Protocol Last Admin: 03/16/24 09:00 Dose: Not Given Documented By: ANAHI Non-Admin Reason: cannot be crushed for gtube Risperidone (Risperidone 3 Mg Tablet) 3 mg G-TUBE BEDTIME [facility] Last Admin: 03/15/24 22:50 Dose: 3 mg Documented By: ALEXY Sodium Chloride (0.9 % Sodium Chloride Flush 3 Ml Syringe) 3 ml IVFLUSH QSHIFT [facility] Last Admin: 03/18/24 07:56 Dose: 3 ml Documented By: QUETA Tramadol HCl (Tramadol Hcl 50 Mg Tablet) 50 mg G-TUBE BID PRN PRN Reason: Pain, Moderate(Pain Scale 4-6) Last Admin: 03/17/24 19:57 Dose: 50 mg Documented By: RENEE Labs 03/18/24 05:54 03/18/24 05:54 Labs: Laboratory Results - last 24 hr 03/18/24 05:54 MCV 98.0 MCH 34.0 H MCHC 34.7 RDW 13.8 Plt Count 146 L MPV 12.3 Absolute Nucleated RBC 0.000 Nucleated RBC % (auto) 0.0 Anion Gap 11 L Estim Creat Clear Calc 92.3 Estimated GFR > 60 Fasting Glucose 115 H Calcium 8.5 D T.pallidum Ab (EIA) Nonreactive Microbiology Microbiology Results: Microbiology 03/15/24 12:18 Blood Culture - Final Blood - Venous Coag negative Staphylococcus 03/15/24 12:27 Blood Culture - Preliminary Blood - Venous No growth after 48 hours. Assessment and Plan (1) Acute hypoxemic respiratory failure: Status: Acute Plan 59M PMH severe persistent asthma with chronic hypoxic respiratory failure on home oxygen, s/p decortication for empyema/pleural effusion, HFrEF 40-45%, HIV on HAART, dysphagia s/p G feeding tube, hep C, depression presented with sob Acute on chronic hypoxemic respiratory failure due to pneumonia weaned off high flow, now on 2L CTA chest neagtive for PE but shows new LLL consolidation with worsening mucous plugging of both lower lobe bronchi. ?Infection and/or aspiration continue zyvox and cefepime duonebs q4h Oral thrush diflucan Weakness, moderate protein calorie malnutrition, FTT pt eval recommending STR Chronic dysphagia g tube, continue tube feeds nutrition consult HIV with FTT last viral load undeteactable, last cd4 219 check viral load, cd4 count LDH WNL ID consult continue biktarvy neuro appreciated - check MRI brain with and without contrast - with some unclear findings, plan for LP 03/19/24 - check menin/enceph panel, jeremi count, prot, gluc, culture Mood disorder holding risperdal for lethargy History of decortication due to empyema left hemithorax 12/2022 HFrEF clinically euvolemic dvt prophylaxis- heparin full code reason for continued hospitalization:hypoxia Quality Stroke Does the patient have a stroke diagnosis?: No VTE Prior VTE?: No VTE Risk Level:: Medical - moderate - high VTE Device Contraindication: Treatment Not Indicated VTE Drug Contraindication: N/A - Med Ordered
--- NOTE | 2024-03-18 13:21 | MHC.CM.PN ---
Patient is active with [facility].
[2024-03-18 14:29] LABS: HIV RNA PCR Qn Copies NOT DETECTED copies/mL (NOT DETECTED); HIV RNA PCR Qn Log Copies NOT DETECTED (NOT DETECTED)
[2024-03-18 15:24] LABS: CMV DNA PCR Qn Source BLOOD; CMV DNA Qn PCR NOT DETECTED Log IU/mL (NOT DETECTED); CMV DNA Qn Real Time PCR NOT DETECTED (NOT DETECTED)
[2024-03-18] MEDS: Fluconazole in NaCl,Iso-Osm 200 MG/100 ML PIGGYBACK 100 MG IV (16:58)
[2024-03-18] MEDS: diphenhydrAMINE HCL 25 MG CAPSULE 50 MG G-TUBE (20:11)
[2024-03-18] MEDS: Mirtazapine 30 MG TABLET 60 MG G-TUBE (20:11)
[2024-03-18] MEDS: Morphine Sulfate 2 MG/ML CARTRIDGE IVPUSH (20:15)
[2024-03-19] VITALS (10 sets, daily range): BP systolic 106–140; BP diastolic 67–80; PULSE 64–76; RESP 16–20; TEMP 36.2–36.7; O2SAT 94–99
[2024-03-19] MEDS: traMADoL HCL 50 MG TABLET G-TUBE ×2 (00:20→16:16)
[2024-03-19] MEDS: cefEPime HCl 2 GM in 0.9 % Sodium Chloride 50 ML IV (03:45)
[2024-03-19] MEDS: Morphine Sulfate 2 MG/ML CARTRIDGE IVPUSH ×2 (03:46→21:56)
[2024-03-19 05:58] LABS: Hematocrit 38.3 % (42.0-52.0); Hemoglobin 13.4 g/dl (14.0-18.0); Mean Corpuscular Hemoglobin 34.3 pg (27.0-33.0); Mean Platelet Volume 11.9 fL (9.4-12.4); Platelet Count 143 X10*3/uL (160-400); Red Blood Count 3.91 X10*6/uL (4.60-5.80); Red Cell Distribution Width 13.8 % (11.0-16.0); White Blood Count 4.9 X10*3/uL (4.8-10.8)
[2024-03-19 06:16] LABS: Anion Gap 14 (12-20); Blood Urea Nitrogen 12 mg/dL (9-16); Calcium 8.6 mg/dL (8.4-10.2); Carbon Dioxide 26 mmol/L (22-29); Chloride 103 mmol/L (96-108); Creatinine Clr Calc Pharmacy 84.5; Estimated Glomerular Filt Rate > 60; Glucose Fasting 112 mg/dL (60-99); Potassium 3.9 mmol/L (3.3-5.1); Sodium 139 mmol/L (135-145)
[2024-03-19] MEDS: Omeprazole/Na Bicarb Oral Susp 20 MG/10 ML UD Cup 10 MG G-TUBE (06:38)
[2024-03-19] MEDS: Ferrous Sulfate 324 MG TABLET.DR PO ×2 (07:35→21:56)
[2024-03-19] MEDS: Chlorhexidine Gluc Oral Rinse 15 ML MOUTHWASH BUCCAL ×4 (07:35→21:56)
[2024-03-19] MEDS: Linezolid/D5W 600 MG/300 ML PIGGYBACK 300 MG IV ×2 (07:35→21:56)
[2024-03-19] MEDS: Gabapentin 600 MG TABLET G-TUBE ×3 (07:35→21:56)
[2024-03-19] MEDS: Bictegrav/Emtricit/Tenofov Ala TABLET 1 TAB PO (07:36)
[2024-03-19] MEDS: clonazePAM 1 MG TABLET G-TUBE (07:36)
[2024-03-19] MEDS: Albuterol/Iprat 2.5/0.5MG 3 ML AMPUL.NEB INHALE ×4 (07:36→18:47)
[2024-03-19] MEDS: 0.9 % Sodium Chloride Flush 3 ML SYRINGE IVFLUSH ×3 (07:37→21:57)
[2024-03-19 09:13] LABS: Lyme Abs Screen <0.90 index
--- NOTE | 2024-03-19 09:53 | MHC.CLN ---
F/U PT IS MODERATELY MALNOURISHED SEE FULL CLINICAL NUTRITION ASSESSMENT DATED 03/17/24 REVIEWED LABS-UNREMARKABLE PT RECEIVING TF JEVITY 1.0 AT MAX GOAL RATE 65ML/HR AND 120ML FREE WATER FLUSHES Q 6HRS PROVIDES 1654KCALS (30.7KCALS/KG), 69G PROTEIN (1.2G/KG), 1783ML TOTAL WATER FROM FORMULA AND FLUSHES (33ML/KG) CONTINUE TO MONITOR TOLERANCE, RESIDUALS AND LYTES
--- NOTE | 2024-03-19 10:17 | MHC.CM.PN ---
Per ROUNDS discussion, Patient having a LP today and likely ready for dc tomorrow. PT is recommending STR and Patient/HCP/Ute's first choice is [facility]; [facility]. CM will follow.
--- NOTE | 2024-03-19 11:43 | HO.PM.IMPN ---
Subjective Subjective Date of Service: 03/19/24 Interval History: Seen and evaluated this morning Feels weak and slow in responses Plan for LP today No reported overnight events Review of Systems Review of Systems: Yes all other systems are reviewed and are negative Physical Exam Vital Signs: Vital Signs: Last Vital Signs Temp 97.6 F 03/19/24 07:30 Pulse 76 03/19/24 11:15 Resp 18 03/19/24 11:15 BP 140/76 H 03/19/24 07:30 Pulse Ox 94 03/19/24 07:30 O2 Del Method Nasal Cannula 03/19/24 07:30 O2 Flow Rate 2 03/19/24 07:30 FiO2 40 03/16/24 08:00 Oxygen Flow Rate 4 03/15/24 12:00 BMI result Body Mass Index 18.6 Const: Other: Constitutional : Awake, interactive, looks frail and weak, not in distress Neck : Normal inspection, Supple Cardiovascular : RRR, no JVP, no lower extremity edema Respiratory : good bilateral air entry, no crackles, wheezes or rhonchi Gastrointestinal: soft, lax, Normal bowel sounds, G-tube in place Non tender Skin : Warm, Dry Neurological : Alert & oriented to self, No focal deficit Objective Data Active Medications Albuterol Sulfate (Albuterol Sulfate 90 Mcg 8 Gm Inhaler) 2 puff INHALE Q6H PRN PRN Reason: wheezing Albuterol/Ipratropium (Albuterol/Iprat 2.5/0.5mg 3 Ml Ampul.Neb) 3 ml INHALE RQ4H WHILE AWAKE [facility] Last Admin: 03/19/24 11:12 Dose: 3 ml Documented By: MIRTHA Amlodipine Besylate (Amlodipine Besylate 5 Mg Tablet) 5 mg G-TUBE DAILY [facility]; Protocol Last Admin: 03/16/24 09:00 Dose: Not Given Documented By: ANAHI Non-Admin Reason: bp 91/51 Bictegravir/Emtricitabine/Tenofovir (Bictegrav/Emtricit/Tenofov Ala Tablet) 1 tab PO DAILY [facility] Last Admin: 03/19/24 07:36 Dose: 1 tab Documented By: QUETA Calcium Carbonate (Calcium Carbonate 750 Mg Tab.Chew) 750 mg PO Q4H PRN PRN Reason: Heartburn Calcium Carbonate/Cholecalciferol (Calcium + Vitamin D 250 Mg Tablet) 250 mg G-TUBE BID@1200,1800 [facility] Last Admin: 03/18/24 16:58 Dose: 250 mg Documented By: QUETA Chlorhexidine Gluconate (Chlorhexidine Gluc Oral Rinse 15 Ml Mouthwash) 15 ml BUCCAL QID [facility] Last Admin: 03/19/24 07:35 Dose: 15 ml Documented By: QUETA Clonazepam (Clonazepam 1 Mg Tablet) 1 mg G-TUBE DAILY [facility] Last Admin: 03/19/24 07:36 Dose: 1 mg Documented By: QUETA Diphenhydramine HCl (Diphenhydramine Hcl 25 Mg Capsule) 50 mg G-TUBE BEDTIME [facility] Last Admin: 03/18/24 20:11 Dose: 50 mg Documented By: LYNN Ferrous Sulfate (Ferrous Sulfate 324 Mg Tablet.Dr) 324 mg PO BID [facility] Last Admin: 03/19/24 07:35 Dose: 324 mg Documented By: QUETA Gabapentin (Gabapentin 600 Mg Tablet) 600 mg G-TUBE TID [facility] Last Admin: 03/19/24 07:35 Dose: 600 mg Documented By: QUETA Heparin Sodium (Porcine) (Heparin Sodium,Porcine 5,000 Unit/Ml Vial) 5,000 unit SUBCUT Q12H [facility] Last Admin: 03/18/24 05:56 Dose: 5,000 unit Documented By: RENEE Fluconazole (Diflucan) 200 mg in 100 mls @ 100 mls/hr IV Q24H [facility] Last Infusion: 03/18/24 18:35 Dose: Infused Documented By: QUETA Cefepime HCl 2 gm/ Sodium (Chloride) 50 mls @ 100 mls/hr IV Q8H [facility] Last Infusion: 03/19/24 05:53 Dose: Infused Documented By: LYNN Linezolid (Zyvox/D5w) 600 mg in 300 mls @ 300 mls/hr IV Q12H [facility] Last Admin: 03/19/24 07:35 Dose: 300 mls/hr Documented By: QUETA Magnesium Hydroxide (Milk Of Magnesia 30 Ml Oral.Susp) 30 ml PO DAILY PRN PRN Reason: Constipation Melatonin (Melatonin 3 Mg Tablet) 6 mg PO BEDTIME PRN PRN Reason: Insomnia Last Admin: 03/16/24 21:53 Dose: 6 mg Documented By: RENEE Mirtazapine (Mirtazapine 30 Mg Tablet) 60 mg G-TUBE BEDTIME [facility] Last Admin: 03/18/24 20:11 Dose: 60 mg Documented By: LYNN Morphine Sulfate (Morphine Sulfate 2 Mg/Ml Cartridge) 2 mg IVPUSH Q4H PRN; Protocol PRN Reason: Pain, Severe (Pain Scale 7-10) Last Admin: 03/19/24 03:46 Dose: 2 mg Documented By: LYNN Omeprazole (Omeprazole/Na Bicarb Oral Susp 20 Mg/10 Ml Ud Cup) 10 mg G-TUBE DAILY@0630 [facility] Last Admin: 03/19/24 06:38 Dose: 10 mg Documented By: LYNN Propranolol HCl (Propranolol Hcl La 60 Mg Cap.Sa.24h) 120 mg PO DAILY [facility]; Protocol Last Admin: 03/16/24 09:00 Dose: Not Given Documented By: ANAHI Non-Admin Reason: cannot be crushed for gtube Risperidone (Risperidone 3 Mg Tablet) 3 mg G-TUBE BEDTIME [facility] Last Admin: 03/15/24 22:50 Dose: 3 mg Documented By: ALEXY Sodium Chloride (0.9 % Sodium Chloride Flush 3 Ml Syringe) 3 ml IVFLUSH QSHIFT [facility] Last Admin: 03/19/24 07:37 Dose: 3 ml Documented By: QUETA Tramadol HCl (Tramadol Hcl 50 Mg Tablet) 50 mg G-TUBE BID PRN PRN Reason: Pain, Moderate(Pain Scale 4-6) Last Admin: 03/19/24 00:20 Dose: 50 mg Documented By: LYNN Labs 03/19/24 05:50 03/19/24 05:50 Labs: Laboratory Results - last 24 hr 03/15/24 03/18/24 03/19/24 16:59 05:54 05:50 MCV 98.0 MCH 34.3 H MCHC 35.0 RDW 13.8 Plt Count 143 L MPV 11.9 Absolute Nucleated RBC 0.000 Nucleated RBC % (auto) 0.0 Anion Gap 14 Estim Creat Clear Calc 84.5 Estimated GFR > 60 Fasting Glucose 112 H Calcium 8.6 Lyme Screen IgG & IgM <0.90 Lyme Progressive Test TNP CMV Specimen Source BLOOD CMV Qnt PCR IU/mL NOT DETECTED CMV Qnt PCR log IU/mL NOT DETECTED HIV-1 RNA copies/mL NOT DETECTED HIV-1 RNA logcopies/mL NOT DETECTED Microbiology Microbiology Results: Microbiology 03/15/24 12:18 Blood Culture - Final Blood - Venous Coag negative Staphylococcus Assessment and Plan (1) Encephalopathy: Status: Acute (2) Pulmonary aspiration: Status: Acute (3) Acute hypoxemic respiratory failure: Status: Acute Plan 59M PMH severe persistent asthma with chronic hypoxic respiratory failure on home oxygen, s/p decortication for empyema/pleural effusion, HFrEF 40-45%, HIV on HAART, dysphagia s/p G feeding tube, hep C, depression presented with sob Acute on chronic hypoxemic respiratory failure due to pneumonia CTA chest neagtive for PE but shows new LLL consolidation with worsening mucous plugging of both lower lobe bronchi weaning down to 2L, continue as toelrated continue zyvox and DC cefepime ID rec 1 week PO Zyvox upon discharge duonebs q4h Toxic metabolic encephalopathy, subacute worsening over the last few months neurology evaluated the patient with feeling of HIV related Encephalopathy recommending LP MRI brain with and without contrast showed nonspecific findings, plan for LP 03/19/24 - check menin/enceph panel, jeremi count, prot, gluc, culture Oral thrush diflucan Weakness, moderate protein calorie malnutrition, FTT pt eval recommending STR Chronic dysphagia g tube, continue tube feeds nutrition consult HIV with FTT last viral load undeteactable, last cd4 219 check viral load, cd4 count LDH WNL ID consult continue biktarvy Mood disorder holding risperdal for lethargy History of decortication due to empyema left hemithorax 12/2022 HFrEF clinically euvolemic dvt prophylaxis- heparin full code reason for continued hospitalization:hypoxia Quality Stroke Does the patient have a stroke diagnosis?: No VTE Prior VTE?: No VTE Risk Level:: Medical - moderate - high VTE Device Contraindication: Treatment Not Indicated VTE Drug Contraindication: N/A - Med Ordered
[2024-03-19 11:58] LABS: CSF Appearance Clear, Colorless; CSF Tube # 1
[2024-03-19 12:08] LABS: Glucose CSF 68 mg/dL; Total Protein CSF 47.4 mg/dL (15-45)
[2024-03-19 12:48] LABS: Cryptococcus neoformans/gattii Not Detected (Not Detect.); Enterovirus Not Detected (Not Detect.); Escherichia coli K1 Not Detected (Not Detect.); Haemophilus influenzae Not Detected (Not Detect.); Herpes simplex virus 1 Not Detected (Not Detect.); Herpes simplex virus 2 Not Detected (Not Detect.); Human herpesvirus 6 Not Detected (Not Detect.); Human parechovirus Not Detected (Not Detect.); Listeria monocytogenes Not Detected (Not Detect.); Neisseria meningitidis Not Detected (Not Detect.); Streptococcus agalactiae Not Detected (Not Detect.); Streptococcus pneumoniae Not Detected (Not Detect.); Varicella zoster virus Not Detected (Not Detect.)
[2024-03-19 13:01] LABS: Appearance CSF CLEAR; Color CSF COLORLESS
[2024-03-19 13:02] LABS: CSF Tube # 4; Red Blood Cell CSF 0 MM*3; White Blood Cell CSF 0 MM*3
[2024-03-19] MEDS: Calcium + Vitamin D 250 MG TABLET G-TUBE ×2 (14:48→18:03)
[2024-03-19] MEDS: Fluconazole in NaCl,Iso-Osm 200 MG/100 ML PIGGYBACK 100 MG IV (18:03)
[2024-03-19] MEDS: diphenhydrAMINE HCL 25 MG CAPSULE 50 MG G-TUBE (21:56)
[2024-03-19] MEDS: Mirtazapine 30 MG TABLET 60 MG G-TUBE (21:56)
[2024-03-20] VITALS: BP 126/75; PULSE 65; RESP 20; TEMP 36.3; O2SAT 97
[2024-03-20 04:00] VITALS: BP 132/74; PULSE 68; RESP 20; TEMP 36.6; O2SAT 97
[2024-03-20] MEDS: Omeprazole/Na Bicarb Oral Susp 20 MG/10 ML UD Cup 10 MG G-TUBE (06:35)
[2024-03-20] MEDS: Albuterol/Iprat 2.5/0.5MG 3 ML AMPUL.NEB INHALE ×2 (07:38→11:08)
[2024-03-20 07:44] VITALS: PULSE 84; RESP 18; O2SAT 94
[2024-03-20 08:00] VITALS: BP 114/72; PULSE 74; RESP 14; TEMP 36.5; O2SAT 100
[2024-03-20] MEDS: 0.9 % Sodium Chloride Flush 3 ML SYRINGE IVFLUSH (09:33)
[2024-03-20] MEDS: Morphine Sulfate 2 MG/ML CARTRIDGE IVPUSH (09:33)
[2024-03-20] MEDS: Linezolid/D5W 600 MG/300 ML PIGGYBACK 300 MG IV (09:35)
[2024-03-20] MEDS: Ferrous Sulfate 324 MG TABLET.DR PO (09:38)
[2024-03-20] MEDS: Bictegrav/Emtricit/Tenofov Ala TABLET 1 TAB PO (09:38)
[2024-03-20] MEDS: Chlorhexidine Gluc Oral Rinse 15 ML MOUTHWASH BUCCAL ×2 (09:38→13:19)
[2024-03-20] MEDS: Gabapentin 600 MG TABLET G-TUBE (09:38)
[2024-03-20] MEDS: clonazePAM 1 MG TABLET G-TUBE (09:39)
--- NOTE | 2024-03-20 10:33 | MHC.CM.PN ---
Per MD, Patient is medically cleared for dc to SNF/STR today. Patient will dc to first choice SNF/ [facility] today at 1:30 PM, via [facility] ([facility] confirmation # for transport is [phone]).STACY spoke with Sister/HCP/Ute @ [phone], informed her of the dc plan and addressed IMM with her (Patient here with Encephalopathy)(original IMM will be mailed certified mail to Ute and a copy has been placed on the chart).
[2024-03-20 11:10] VITALS: PULSE 80; RESP 16; O2SAT 92
[2024-03-20] MEDS: Calcium + Vitamin D 250 MG TABLET G-TUBE (11:20)
--- NOTE | 2024-03-20 11:54 | PM.DS ---
DS: Providers Provider Date of Service: 03/20/24 Date of admission: 03/15/24 16:25 Primary care physician: Unknown Physician Consults: 03/15/24 16:26 Consult to Infectious Diseases Routine Consulting Provider: [facility] Reason for consultation: HIV, hypoxia, thrush 03/15/24 19:30 Consult to Pulmonology Routine Consulting Provider: [facility] Reason for consultation: mucus plugging, pneumonia, HIV pt 03/16/24 10:05 Consult to Neurology Routine Consulting Provider: [facility] Reason for consultation: ?neuromuscular disorder, diffuse weakness, dysphagia DS: Diagnosis Discharge Diagnosis (1) Encephalopathy: Status: Acute (2) Pulmonary aspiration: Status: Acute (3) Acute hypoxemic respiratory failure: Status: Acute (4) Acute asthma exacerbation: Status: Acute (5) Hypotension: Status: Acute DS: Summary Hospital Course Hospital Course: Admission note HPI 59-year-old male PMH pertinent for asthma on home oxygen, s/p decortication for pleural effusion, HFrEF 40-45%, HIV on HAART, dysphagia s/p G feeding tube, hep C, depression presented to the ED via EMS from home after reporting to [employer] SE[employer]ARY he was short of breath and experiencing chest pain. Per EMS was 63% on RA improved to 73% following duoneb. On exam, the patient is nonverbal which does not appear to be baseline (multiple notes reporting patient speaking) but he is following commands. He is very unwell appearing, weak, fatigued, cachectic, and diaphoretic. He points to his chest and left side of his neck when asked abotu pain. Nods his head yes to feeling short of breath. On arrival, pt tachypneic and hypoxic, placed on hiflow O2 maintaining oximetry 90%. No leukocytosis. Renal fx normal. Lytes normal. Lactic acid 1.1. Hepatic fx wnl. Initial trop undetectable, repeat pending. BNP 43. LDH and PCT pending. Repeat abg shwos hypoxemia, no hypercapnia, or acidosis. Negative for COVID-19, RSV, influenza. Chest x-ray showed linear scarring or atelectasis at left lung base. Last HIV viral load from 09/2023 undetectable. Last CD4 count from 12/2023 219. In the ED, given multiple nebs, iv mag, iv doxy, and methylprednisolone. Of note, was recently admitted 6/28- for acute asthma exacerbration. Hospital course - Acute on chronic hypoxemic respiratory failure due to pneumonia with CTA chest neagtive for PE but shows new LLL consolidation with worsening mucous plugging of both lower lobe bronchi that was treated with IV antibiotics of Zyvox and Cefepime as he was evaluated by ID who recommended 1 week of Zyvox on discharge. He was on Duonebs as well as O2 supplement decreased gradually and will continue to wean down as tolerated at the facility. - Toxic metabolic encephalopathy, subacute. neurology evaluated the patient with feeling of multifactorial causes including recent infection with pneumonia, polypharmacy and possible HIV related Encephalopathy as he was evaluated by neurologist given MRI brain with and without contrast showed nonspecific findings. LP was done 03/19/24 with negative encephaliaits panel and normal cell count with mildly elevated protein which is non-specific. Mental status improved back to baseline as pneumonia cleared up. Risperidone was held on admission and restarted at time of discharge, it could be contributing to the AMS and will need to monitor the patient if that happens after discharge to the facility. - Oral thrush, Started on Diflucan, to finish 7 more days upon discharge - Weakness, moderate protein calorie malnutrition, PHysical therapy eval recommending STR - HIV with Failure to thrive. last viral load undeteactable, last cd4 219. Pending viral load, cd4 count and will be followed by ID who saw him during hospital stay. continue biktarvy - Hypotension on admission. Discontinue Propranolol, as blood pressure was too low on presentation and remained on the low normal end even after holding the hypertension medications. Amlodipine discontinued as well for now. Discharge plan Continue antibiotics for 1 more week Continue Diflucan for 1 more week Discontinue Propranolol, your blood pressure was too low on presentation and remained on the low normal end even after holding your hypertension medications Discontinue Amlodipine Start Budesonide inhaler The patient decided to go home with VNA and CLERICAL SECRETARY rather than SNF. Time Attestation Discharge Coordination Time (in mins): 46 Quality: Safe Use of Opioids Does Pt have an Active Cancer Diagnosis on the Problem List?: No Quality: Stroke Does the patient have a stroke diagnosis?: No Physical Exam Vital Signs: Vital Signs: Last Vital Signs Temp 97.7 F 03/20/24 08:00 Pulse 80 03/20/24 11:10 Resp 16 03/20/24 11:10 BP 114/72 03/20/24 08:00 Pulse Ox 100 03/20/24 08:00 O2 Del Method Nasal Cannula 03/20/24 08:00 O2 Flow Rate 2 03/20/24 08:00 FiO2 40 03/16/24 08:00 Oxygen Flow Rate 4 03/15/24 12:00 BMI result Body Mass Index 18.6 Const: Other: Constitutional : Awake, interactive, looks frail and weak, not in distress Neck : Normal inspection, Supple Cardiovascular : RRR, no JVP, no lower extremity edema Respiratory : good bilateral air entry, no crackles, wheezes or rhonchi Gastrointestinal: soft, lax, Normal bowel sounds, G-tube in place Non tender Skin : Warm, Dry Neurological : Alert & oriented x3, No focal deficit DS: Data Data Completed and Pending Completed studies during hospitalization [Text1]: Procedures Drainage of Left Lung with Drainage Device, Open Approach (12/30/22) Excision of Esophagogastric Junction, Via Natural or Artificial Opening Endoscopic, Diagnostic (07/16/23) Excision of Stomach, Pylorus, Via Natural or Artificial Opening Endoscopic, Diagnostic (07/16/23) Excision of Upper Esophagus, Via Natural or Artificial Opening Endoscopic, Diagnostic (07/16/23) Insertion of Endotracheal Airway into Trachea, Via Natural or Artificial Opening (12/30/22) Insertion of Feeding Device into Stomach, Percutaneous Approach (07/27/23) Insertion of Infusion Device into Superior Vena Cava, Percutaneous Approach (12/30/22) Insertion of Infusion Device into Upper Vein, Percutaneous Approach (07/16/23) Introduction of Nutritional Substance into Upper GI, Via Natural or Artificial Opening (07/27/23) Introduction of Vasopressor into Central Vein, Percutaneous Approach (12/30/22) Release Left Lung, Open Approach (12/30/22) Reposition Left Tibia with Internal Fixation Device, Open Approach (02/12/22) Respiratory Ventilation, 24-96 Consecutive Hours (12/30/22) Ultrasonography of Superior Vena Cava, Guidance (12/30/22) Labs on day of discharge: Laboratory Results - last 24 hr 03/19/24 03/19/24 10:35 10:35 CSF Tube Number 1 4 CSF Volume 6.0 CSF Appearance CLEAR CSF Color COLORLESS CSF WBC 0 CSF RBC 0 CSF Appearance (b) Clear, Colorless CSF Glucose 68 CSF Total Protein 47.4 H CSF C.neoform/gat PCR Not Detected CSF CMV DNA (PCR) Not Detected CSF Enterovirus (PCR) Not Detected CSF E. coli K1 (PCR) Not Detected CSF H. influenzae (PCR) Not Detected CSF HSV I (PCR) Not Detected CSF HSV II (PCR) Not Detected CSF HHV 6 (PCR) Not Detected CSF L.monocytogenes PCR Not Detected CSF N. meningitidis PCR Not Detected CSF Parechovirus (PCR) Not Detected CSF S. agalactiae (PCR) Not Detected CSF S. pneumoniae (PCR) Not Detected CSF VZV (PCR) Not Detected Preliminary micro results at discharge 03/19/24 10:35 CSF Culture - Preliminary Cerebrospinal Fluid No growth after 1 day 03/15/24 12:27 Blood Culture - Preliminary Blood - Venous No growth after [address] scan - chest: Radiologist's impression: ITS Impressions Chest X-Ray 03/15/24 13:34 IMPRESSION: Linear scarring or atelectasis at the left lung base. Chest CTA 03/15/24 18:56 IMPRESSION: 1. No evidence of pulmonary emboli. 2. New left lower lobe consolidation with worsening of mucus plugging of both lower lobe bronchi. Infection and/or aspiration would be considerations. 3. Unchanged 1.7 cm groundglass opacity at the right apex. VTE: negative. Brain MRI 03/17/24 13:21 IMPRESSION: 1. No acute intracranial abnormalities. No abnormal intracranial enhancement. 2. Mild to moderate chronic white matter changes and generalized cerebral volume loss most commonly seen with microangiopathy. Lumbar Puncture Fluoroscopy 03/19/24 10:00 IMPRESSION: Successful and uneventful lumbar puncture at L3-L4 with 18 mL clear CSF obtained and sent for laboratory analysis. No immediate complications. Discharge Plan Discharge Anticipated Discharge Date/Time: 03/20/24 11:36 Patient Disposition: Home Health Service Discharge Diagnosis: Aspiration pneumonia Hypoxia Encephalopathy Referrals: [facility] [Outside] - 1 Week Physician,Unknown J [Primary Care Provider] - 1 Week Discharge Medications: New fluconazole 100 mg tablet 100 mg PO DAILY Qty: 7 0RF budesonide 90 mcg/actuation aerosol powdr breath activated 2 inh inhalation BID Qty: 1 2RF linezolid [Zyvox] 600 mg tablet 600 mg PO BID Qty: 14 0RF Continued gabapentin 600 mg tablet 600 mg feeding tube TID Qty: 20 0RF mirtazapine 30 mg tablet 60 mg feeding tube BEDTIME Qty: 20 0RF Biktarvy 50-200-25 mg tablet 1 tab PO DAILY Qty: 14 0RF Rx Instructions: Ok to crush and give via feeding tube risperidone 3 mg tablet 3 mg feeding tube BEDTIME diphenhydramine HCl [Banophen] 25 mg tablet 50 mg feeding tube BEDTIME ferrous gluconate 324 mg (38 mg iron) tablet 324 mg feeding tube BID calcium carbonate-vitamin D3 600 mg-20 mcg (800 unit) tablet 1 tab feeding tube BID@1200,1800 omeprazole 10 mg Capsule,Delayed Release(Dr/Ec) 10 mg feeding tube DAILY@0630 albuterol sulfate [Ventolin HFA] 90 mcg/actuation HFA aerosol inhaler 2 puff inhalation Q6H PRN (Reason: wheezing) chlorhexidine gluconate 0.12 % mouthwash 15 ml PO QID clonazepam 1 mg tablet 1 mg feeding tube DAILY Qty: 10 0RF tramadol 50 mg tablet 50 mg feeding tube BID PRN (Reason: Pain (Scale Score 7-10)) Qty: 20 0RF Discontinued amlodipine 5 mg tablet 5 mg feeding tube DAILY Qty: 30 0RF propranolol 120 mg capsule,extended release 24hr 120 mg PO DAILY Hold Instructions: Monitor blood pressure readings for next week and check with MD if needed to be restarted Discharge Orders: Discharge Order (Routine); Ordered 03/20/24 Ordered By: Long Abel Diet: Tube feed Activity on Discharge: As tolerated Stand Alone Forms: Patient Portal Discharge page Print Language: Citizen Of [place] Care Plan Goals: Continue antibiotics for 1 more week Continue Diflucan for 1 more week Discontinue Propranolol, your blood pressure was too low on presentation and remained on the low normal end even after holding your hypertension medications Discontinue Amlodipine Start Budesonide inhaler Health Concerns: Read below Plan of Treatment: Read below Assessment: Read below
[2024-03-20 12:00] VITALS: BP 101/74; PULSE 87; RESP 16; TEMP 36.6; O2SAT 94
[2024-03-20 14:28] LABS: Absolute CD3 Count 411 cells/uL (840-3060); Absolute CD4 Count 167 cells/uL (490-1740); Absolute CD8 Count 281 cells/uL (180-1170); Absolute Lymphocytes 544 cells/uL (850-3900); Percent CD3 Cells 76 % (57-85); Percent CD4 Cells 31 % (30-61); Percent CD8 Cells 52 % (12-42)
--- NOTE | 2024-03-20 15:04 | MHC.CM.PN ---
Addendum entered by Leilani Sánchez 03/20/24 15:18: CM has informed Patient's Sister/HCP/Ute regarding the change in dc plans. Original Note: Patient prefers to go home rather than to STR([facility] has been notified). CM has confirmed with his [facility] ([facility]) and [facility] ([facility])that he is set to go home from their perspective. Patient lives with his GRAPHIC ARTIST, who is here to transport Patient to home. MD is aware.
[2024-03-22 19:48] LABS: Acetylcholine Recept. Blocking <15 (<15)
[2024-03-29 15:43] LABS: Acetylcholine Receptor Binding <0.30 nmol/L
[2024-03-31 18:13] LABS: Acetylcholine Recep Modulating <1
== END 2024-03-20 15:43 | disposition home health service (06) | DRG 177 ==
LOC: HO.ED 14:25 → HO.EDOVER 16:35 → HO.IMC 03-16 01:02
PROVIDERS: Internal Medicine; Physician Assistant; Admitting Provider Physician Assistant; Emergency Provider Emergency Medicine; Visit Provider Student in an Organized Health Care Education/Training Program
DX: J69.0 Pneumonitis due to inhalation of food and vomit (principal); G92.8 Other toxic encephalopathy; J96.21 Acute and chronic respiratory failure with hypoxia; J45.51 Severe persistent asthma with (acute) exacerbation; Z68.1 Body mass index [BMI] 19.9 or less, adult; B37.0 Candidal stomatitis; I50.22 Chronic systolic (congestive) heart failure; E44.0 Moderate protein-calorie malnutrition; B20 Human immunodeficiency virus [HIV] disease; I95.9 Hypotension, unspecified; R62.7 Adult failure to thrive; F39 Unspecified mood [affective] disorder; R13.10 Dysphagia, unspecified; Z93.1 Gastrostomy status; Z20.822 Contact with and (suspected) exposure to COVID-19; Z99.81 Dependence on supplemental oxygen; Z87.891 Personal history of nicotine dependence; Z79.899 Other long term (current) drug therapy
CPT/HCPCS: 0241U; 36415; 62328; 70553; 71045; 71275; 80048; 80053; 80202; 80307; 81001; 82550; 82803; 82945; 83605; 83615; 83735; 83880; 84100; 84145; 84157; 84484; 85025; 85027; 86041; 86042; 86043; 86140; 86359; 86360; 86617; 86618; 86780; 87015; 87040; 87070; 87147; 87205; 87483; 87497; 87536; 87633; 87640; 87641; 89051; 93005; 94640; 97162; 97530; 99285; A9585; J0692; J1450; J1644; J2020; J2270; J2919; J3370; J3371; J3475; Q9967

== ENCOUNTER → 2024-03-15 12:02 | Outpatient (BNV) | payer OTHER, SELFPAY | PROVIDERS: Admitting Provider Physician Assistant; Emergency Provider Emergency Medicine; Visit Provider Internal Medicine Cardiovascular Disease | DX: I45.10 Unspecified right bundle-branch block (principal) | CPT/HCPCS: 93010 ==

== ENCOUNTER 2024-03-15 16:25 | Outpatient (BNV) | payer OTHER, SELFPAY | END 2024-03-16 10:50 | PROVIDERS: Admitting Provider Physician Assistant; Emergency Provider Emergency Medicine; Visit Provider Internal Medicine Cardiovascular Disease | DX: R94.31 Abnormal electrocardiogram [ECG] [EKG] (principal) | CPT/HCPCS: 93010 ==

== ENCOUNTER 2024-03-15 16:25 | Outpatient (BNV) | payer OTHER, SELFPAY | END 2024-03-19 10:00 | PROVIDERS: Admitting Provider Physician Assistant; Emergency Provider Emergency Medicine; Visit Provider Radiology Diagnostic Radiology | DX: R41.82 Altered mental status, unspecified (principal); R62.7 Adult failure to thrive | CPT/HCPCS: 62328 ==

== ENCOUNTER → 2024-03-15 16:25 | Outpatient (BNV) | payer OTHER, SELFPAY | PROVIDERS: Admitting Provider Physician Assistant; Emergency Provider Emergency Medicine; Visit Provider Physician Assistant | DX: J96.01 Acute respiratory failure with hypoxia (principal) | CPT/HCPCS: 99223; 99233; 99239 ==

== ENCOUNTER → 2024-03-15 16:25 | Outpatient (BNV) | payer OTHER, SELFPAY | PROVIDERS: Admitting Provider Physician Assistant; Emergency Provider Emergency Medicine; Visit Provider Internal Medicine Pulmonary Disease | DX: J96.01 Acute respiratory failure with hypoxia (principal); T17.900A Unspecified foreign body in respiratory tract, part unspecified causing asphyxiation, initial encounter | CPT/HCPCS: 99222 ==

== ENCOUNTER → 2024-03-15 16:25 | Outpatient (BNV) | payer OTHER, SELFPAY | PROVIDERS: Admitting Provider Physician Assistant; Emergency Provider Emergency Medicine; Visit Provider Psychiatry & Neurology Neurology | DX: B20 Human immunodeficiency virus [HIV] disease (principal); G92.8 Other toxic encephalopathy; J18.9 Pneumonia, unspecified organism | CPT/HCPCS: 99223 ==

== ENCOUNTER → 2024-03-15 16:25 | Outpatient (BNV) | payer OTHER, SELFPAY | PROVIDERS: Admitting Provider Physician Assistant; Emergency Provider Emergency Medicine; Visit Provider Internal Medicine | DX: G92.8 Other toxic encephalopathy (principal); T17.900A Unspecified foreign body in respiratory tract, part unspecified causing asphyxiation, initial encounter; J96.01 Acute respiratory failure with hypoxia | CPT/HCPCS: 99222 ==

== ENCOUNTER 2024-04-13 23:49 | Inpatient (IN) | payer OTHER, SELFPAY ==
--- NOTE | ~2024-04-13 | CT_ITS ---
EXAMINATION: CT CHEST WITHOUT CONTRAST CLINICAL INFORMATION: Aspiration pneumonia COMPARISON: Multiple priors including chest x-ray from the same day TECHNIQUE: Multidetector volumetric CT imaging of the chest was done. Axial MIP volume rendering provided. Sagittal and coronal reformatted images were obtained. This CT examination was performed using dose optimization techniques as appropriate, variously including the following: *Automated exposure control *Adjustment of mA and/or kV according to patient size (this includes techniques or standardized protocols for targeted exams where dose is matched to indication/reason for exam; i.e. extremities or head) *Use of iterative reconstruction technique DLP: 308 mGy-cm FINDINGS: LUNGS: Significantly limited detailed evaluation due to respiratory motion artifact. Semisolid material is present in the lower trachea extending into the right mainstem and bronchus intermedius. Additional debris is suspected in the left mainstem bronchus. There is streaky airspace opacity at the left lung base most consistent with atelectasis. Component of adjacent bronchiolitis cannot be excluded in the setting of motion artifact. There is mild patchy ground glass opacity posteriorly in the right upper lobe. There is suspected bronchiolitis in the anterior right upper lobe. Additional chronic colitis in the superior right lower lobe. Dense opacity in the basilar right lower lobe favors atelectasis. MEDIASTINUM: The visualized thyroid gland is unremarkable. Borderline enlarged subcarinal lymph node may be reactive. Cardiac size appears at the upper limits of normal. No pericardial effusion. CORONARY ARTERY CALCIFICATION: Present PLEURA: No pneumothorax or significant pleural effusion. AXILLA: No lymphadenopathy. UPPER ABDOMEN: Grossly unremarkable. OSSEOUS STRUCTURES: Chronic posterior left eighth rib deformity. Partial loss of vertebral body height in the midthoracic spine appear similar to prior. CT/CT chest wo IV con IMPRESSION: 1. Limited detailed evaluation of the lungs due to respiratory motion artifact. Semisolid material is present in the lower trachea extending into the right mainstem bronchus and bronchus intermedius. Additional debris is suspected in the left mainstem bronchus. Overall, this could be due to aspiration. 2. Streaky airspace opacities at the left lung base, most consistent with atelectasis. Component of adjacent bronchiolitis cannot be excluded in the setting of motion artifact. 3. Mild patchy ground glass opacity posteriorly in the right upper lobe, suspicious for mild infectious/inflammatory change. Regions of bronchiolitis in the right upper and lower lobes. 4. Borderline enlarged subcarinal lymph node, which may be reactive. 5. Coronary artery calcifications. Correlation with cardiac risk factors is recommended.
--- NOTE | ~2024-04-13 | XR_ITS ---
EXAMINATION: XR CHEST CLINICAL INFORMATION: Cough COMPARISON: 03/15/2024 TECHNIQUE: Frontal view of the chest was obtained. FINDINGS: Lung volumes are symmetric. Minimal atelectasis is suspected at the left base, without additional consolidation. No evidence of pneumothorax, pleural effusion, or pulmonary edema. Cardiac size is within normal limits. No acute osseous findings are seen. XR/XR chest 1V IMPRESSION: Minimal left basilar atelectasis without additional acute findings.
--- NOTE | 2024-04-13 23:51 | ECG_ITS ---
Test Reason : CHEST PAIN Blood Pressure : / mmHG Vent. Rate : 102 BPM Atrial Rate : 102 BPM P-R Int : 146 ms QRS Dur : 096 ms QT Int : 342 ms P-R-T Axes : 088 094 044 degrees QTc Int : 445 ms Sinus tachycardia Rightward axis Incomplete right bundle branch block Nonspecific ST and T wave abnormality Abnormal ECG When compared with ECG of 16-MAR-2024 10:50, Vent. rate has increased BY 40 BPM Incomplete right bundle branch block is now Present Referred By: Generic ED Physician Electronically Signed By:ZHANG OCHOA MD
[2024-04-14] VITALS (12 sets, daily range): BP systolic 111–142; BP diastolic 69–98; PULSE 65–109; RESP 13–32; TEMP 36.5–36.9; O2SAT 93–98; BMI 20.4
--- NOTE | 2024-04-14 00:04 | ED_ITS ---
HPI - Chest Pain General Chief Complaint: Chest Pain Stated Complaint: cp Time Seen by Provider: 04/13/24 23:58 Source: patient and EMS Mode of arrival: EMS Limitations: no limitations History of Present Illness ED Provider: kolton WHITFIELD narrative: Patient is 59 years old with history of HIV with undetectable viral load last CD4 count was 219 on 01/01, and 167 on 03/26/24 history of asthma on oxygen 3-4 L via nasal cannula, status post decortication for pleural effusion, HFrEF 40-50%, dysphagia status post G feeding tube, depression comes here for increased shortness of breath and cough started yesterday patient was admitted with similar symptoms in 03/20/2024 when had showed mucus plugging in both lower lobes? Aspiration versus mucous plugging patient is discharged home on Zyvox Related Data Home Medications ?Medication ?Instructions ?Recorded ?Confirmed calcium carbonate 600 mg-vitamin 1 tab feeding tube BID@1200,1800 12/16/23 03/15/24 D3 20 mcg (800 unit) tablet diphenhydramine HCl 25 mg tablet 50 mg feeding tube BEDTIME 12/16/23 03/15/24 (Banophen) ferrous gluconate 324 mg (38 mg 324 mg feeding tube BID 12/16/23 03/15/24 iron) tablet risperidone 3 mg tablet 3 mg feeding tube BEDTIME 12/16/23 03/15/24 omeprazole 10 mg capsule,delayed 10 mg feeding tube DAILY@0630 01/10/24 03/15/24 release albuterol sulfate 90 mcg/actuation 2 puff inhalation Q6H PRN wheezing 03/07/24 03/15/24 aerosol inhaler (Ventolin HFA) chlorhexidine gluconate 0.12 % 15 ml PO QID 03/07/24 03/15/24 mouthwash Previous Rx's ?Medication ?Instructions ?Recorded bictegravir 50 mg-emtricitabine 1 tab PO DAILY #14 tabs 08/02/23 200 mg-tenofovir alafenam 25 mg tablet (Biktarvy) gabapentin 600 mg tablet 600 mg feeding tube TID #20 tabs 08/02/23 mirtazapine 30 mg tablet 60 mg (2 x 30 mg) feeding tube 08/02/23 BEDTIME #20 tabs budesonide 90 mcg/actuation breath 2 inh inhalation BID #1 ea 03/20/24 activated powder inhaler clonazepam 1 mg tablet 1 mg feeding tube DAILY #10 tabs 03/20/24 fluconazole 100 mg tablet 100 mg PO DAILY #7 tabs 03/20/24 linezolid 600 mg tablet (Zyvox) 600 mg PO BID #14 tabs 03/20/24 tramadol 50 mg tablet 50 mg feeding tube BID PRN Pain 03/20/24 (Scale Score 7-10) #20 tabs Allergies Allergy/AdvReac Type Severity Reaction Status Date / Time Seasonal Allergies Allergy Intermediate Eye Verified 04/14/24 00:06 Drainage codeine Allergy Mild Rash Verified 04/14/24 00:06 [From Tylenol-Codeine #3] levofloxacin [From Levaquin] Allergy Mild Rash Verified 04/14/24 00:06 metoclopramide [From Reglan] Allergy Mild Rash Verified 04/14/24 00:06 acetaminophen Allergy Unknown Rash Verified 04/14/24 00:06 [Tylenol-Codeine #3] Penicillins [PENICILLINS] Allergy Unknown Rash Verified 04/14/24 00:06 ibuprofen [From Motrin] AdvReac Unknown Reflux Verified 04/14/24 00:06 Review of Systems 2 Review of Systems: Yes all other systems are reviewed and are negative PMFSH Past Medical History Medical History Asthma Dysphagia Adult failure to thrive Adult failure to thrive Multiple rib fractures History of empyema of pleura (01/05/23) Hypertension Closed fracture of leg Hepatitis C Kidney stones Pleuritic chest pain Pneumonia Substance abuse Hemorrhoids Depression HIV (human immunodeficiency virus infection) Asthma Surgical History H/O hemorrhoidectomy Social History Social History Household Members: Other Household Members Other:: 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 Housing: Apartment Do you presently have visiting nurse or other home services: Yes Alcohol intake: never Patient Tobacco Use Status: Former Tobacco user Tobacco use type: Cigarette Smoked in Last 30 Days: No e-Cigarette/Vaping Use: Never Used Second Hand Smoke Exposure: No Use of substances other than those prescribed or required for medical reasons: No Substance Use Type: Crack/Cocaine Advance Directives: Yes Advance Directives on File: Yes Advance Directives Date on File: 04/25/21 Do you have a plan to hurt others: No Plan service: No Current occupational status: disabled Physical Exam 2 Vital Signs: Vital Signs: Last Vital Signs Temp 97.7 F 04/14/24 06:21 Pulse 79 04/14/24 06:21 Resp 16 04/14/24 06:21 BP 119/78 04/14/24 06:21 Pulse Ox 98 04/14/24 06:21 O2 Del Method Nasal Cannula 04/14/24 06:21 O2 Flow Rate 3 04/14/24 06:21 Oxygen Flow Rate 3 04/14/24 00:02 BMI result Body Mass Index 20.4 Appearance: Alert. Oriented X3. Sick looking. Thin emaciated Eyes: PERRLA, ENT: Pharynx normal. Oral Mucosa moist Neck: Normal inspection. Neck supple. CVS: Normal heart rate and rhythm. Pulses normal. Respiratory: No respiratory distress. Equal air entry bilateral, audible secretions in the throat rales bilateral with prolonged expiration and wheezing Abdomen: Soft and nontender. Bowel sounds are present, no mass palpable, no CVA tenderness Skin: Skin warm and dry. Normal skin color. Normal skin turgor. Extremities: No lower extremity edema. No calf tenderness Neuro: Oriented X 3. No motor deficit. Medications Administered Discontinued Medications Generic Name Dose Route Start Last Admin Trade Name Freq PRN Reason Stop Dose Admin Albuterol Sulfate 7.5 mg/ 10 mg 04/14/24 00:25 04/14/24 00:32 Albuterol Sulfate 2.5 mg INHALE 04/14/24 00:26 10 mg ONCE ONE Administration Sodium Chloride 1,000 mls @ 999 mls/hr 04/14/24 00:15 04/14/24 01:59 Ns IV 04/14/24 01:15 Infused .Q1H1M ONE Infusion Piperacillin Sod/Tazobactam 50 mls @ 100 mls/hr 04/14/24 00:15 04/14/24 01:26 Sod 3.375 gm/ Sodium Chloride IV 04/14/24 00:44 Infused ONCE ONE Infusion Medical Decision Making Medical Decision Making MDM Narrative: Patient with history of HIV with CD4 count of 167 on 03/15/2024 with leukocytosis with increased secretions likely with aspiration pneumonia with chronic lung disease with similar history in the past patient clinically improved after suctioning and nebulizing treatment chest x-ray negative for acute infiltrate with chronic changes CT chest showed debris in Main broncho will treat for PCP pneumonia along with aspiration pneumonia Differential Diagnosis Differential Diagnoses: The differential diagnosis associated with the presentation includes Pneumonia/aspiration pneumonias/pleural effusion/CHF Admission/Observation Consideration of admission/observation: Escalation of care including admission/observation considered Consult Healthcare Provider Management of the patient was discussed with: Hospitalist Lab Data MDM Lab Attestation statement: I reviewed the patient's lab results. 04/14/24 00:48 04/14/24 00:40 Labs: Lab Results 04/14/24 04/14/24 Range/Units 00:40 00:48 WBC 16.5 H (4.8-10.8) X10*3/uL RBC 4.16 L (4.60-5.80) X10*6/uL Hgb 14.1 (14.0-18.0) g/dl Hct 41.6 L (42.0-52.0) % MCV 100.0 H (80.0-98.0) fL MCH 33.9 H (27.0-33.0) pg MCHC 33.9 (31.0-36.0) g/dl RDW 14.8 (11.0-16.0) % Plt Count 192 D (160-400) X10*3/uL MPV 11.7 (9.4-12.4) fL Immature Gran % (Auto) Cancelled Neut % (Auto) Cancelled Lymph % (Auto) Cancelled [place] % (Auto) Cancelled Eos % (Auto) Cancelled Baso % (Auto) Cancelled Lymph # (Auto) Cancelled [place] # (Auto) Cancelled Eos # (Auto) Cancelled Baso # (Auto) Cancelled Abs Immat Gran (auto) Cancelled Absolute Neuts (auto) Cancelled Absolute Nucleated RBC 0.000 (0.0-0.012) X10*3/uL Nucleated RBC % (auto) 0.0 (0.0-0.2) /100WBC Neutrophils % (Manual) 81 H (45-73) % Band Neutrophils % 1 L (3-5) % Lymphocytes % (Manual) 9 L (20-40) % Monocytes % (Manual) 9 (2-11) % Abs Neuts (Manual) 13.5 H (2.0-8.3) X10*3/uL Lymphocytes # (Manual) 1.5 (1.2-4.9) X10*3/uL Monocytes # (Manual) 1.5 H (0.1-1.2) X10*3/uL Toxic Vacuolation PRESENT Platelet Estimate NORMAL (NORMAL) Plt Morphology Comment NORMAL RBC Morphology NOTED Macrocytosis 1+ (5-14) /OIF Ovalocytes 1+ (5-14) /OIF Sodium 142 (135-145) mmol/L Potassium 4.0 (3.3-5.1) mmol/L Chloride 111 H (96-108) mmol/L Carbon Dioxide 19 L (22-29) mmol/L Anion Gap 16 (12-20) BUN 16 (9-16) mg/dL Creatinine 0.99 (0.5-1.4) mg/dL Estim Creat Clear Calc 64.4 Estimated GFR > 60 Random Glucose 136 H (60-115) mg/dL Lactic Acid 1.9 (0.5-2.0) mmol/L Calcium 10.0 D (8.4-10.2) mg/dL Magnesium 2.0 (1.6-2.6) mg/dL Total Bilirubin 0.8 (0.0-1.0) mg/dL AST 18 (5-37) U/L ALT 30 (0-40) U/L Alkaline Phosphatase 44 (39-117) U/L Troponin I High Sens < 2.7 (<3.5-35.0) ng/L B-Natriuretic Peptide 22 (<100) pg/mL Total Protein 7.9 (6.5-8.0) g/dL Albumin 4.4 (3.5-5.0) g/dL Influenza Type A (PCR) NEGATIVE (Negative) Influenza Type B (PCR) NEGATIVE (Negative) RSV RNA Qual (PCR) NEGATIVE (Negative) SARS-CoV-2 RNA (RT-PCR) NEGATIVE (Negative) Independent Interpretation I performed an independent interpretation of an: EKG, Plain X-Ray and CT Scan Interpretation: Sinus tachycardia with heart rate 102 beats per minute incomplete right bundle- branch block right axis deviation no acute STT wave changes no acute ischemia Radiology Impression Discussion of test interpretation with radiology: I have reviewed the radiologist's reading. Radiologist Impression: RDER #: [id number] CT/CT chest wo IV con IMPRESSION: 1. Limited detailed evaluation of the lungs due to respiratory motion artifact. Semisolid material is present in the lower trachea extending into the right mainstem bronchus and bronchus intermedius. Additional debris is suspected in the left mainstem bronchus. Overall, this could be due to aspiration. 2. Streaky airspace opacities at the left lung base, most consistent with atelectasis. Component of adjacent bronchiolitis cannot be excluded in the setting of motion artifact. 3. Mild patchy ground glass opacity posteriorly in the right upper lobe, suspicious for mild infectious/inflammatory change. Regions of bronchiolitis in the right upper and lower lobes. 4. Borderline enlarged subcarinal lymph node, which may be reactive. 5. Coronary artery calcifications. Correlation with cardiac risk factors is recommended. Critical Care Time Critical Care Time Critical Care Time: Yes Total Critical Care Time: 55 Attestation: The patient was critically ill with a high probability of imminent or life threatening deterioration. I spent greater than ?60??minutes of discontinuous time evaluating the patient,delivering critical care at the bedside, discussing and evaluating pertinent data with consultants. Critical care time does not include time spent performing separately billable procedures or teaching. Total time spent performing critical care was 55???minutes. Discharge Plan Discharge Clinical Impression: Acute and chronic respiratory failure with hypoxia, HIV (human immunodeficiency virus infection), Aspiration into lower respiratory tract Pneumonia Qualifiers: Pneumonia type: due to unspecified organism Laterality: right Lung location: l ower lobe of lung Qualified Code(s): J18.9 - Pneumonia, unspecified organism Patient Disposition: Admitted As Inpatient Print Language: Congolese
--- NOTE | 2024-04-14 00:12 | MHC.EDTECH ---
PATIENT WAS BIBA FROM HOME ,VITALS TAKEN EKG DONE AND WAS READ BY PROVIDER ,PT WAS CHANGE INTO HOSPITAL ATTIRE AND HOOKED UP TO ELECTRICAL SUPERVISOR ,CALL RUIZ WITHIN PT REACH .
[2024-04-14] MEDS: Albuterol Sulfate 7.5 MG, Albuterol Sulfate (0.083%) 2.5 MG 10 MG INHALE (00:32)
[2024-04-14] MEDS: 0.9 % Sodium Chloride 1,000 ML 999 ML IV (00:52)
[2024-04-14] MEDS: Piperacillin Sodium/Tazobactam 3.375 GM in 0.9 % Sodium Chloride 50 ML IV (00:52)
--- NOTE | 2024-04-14 00:52 | PC.NURSE ---
gave verbal OK to administer Zosyn with known penicillin allergy.
--- NOTE | 2024-04-14 00:54 | MHC.EDTECH ---
PATIENT BLOOD DRAWN INCLUDING BOTH SETS OF BLOOD CULTURE , LACTIC ACID AND RSV /COVID SWAB ALL SENT TO LAB .
[2024-04-14 00:58] LABS: Hematocrit 41.6 % (42.0-52.0); Hemoglobin 14.1 g/dl (14.0-18.0); Mean Corpuscular HGB Conc 33.9 g/dl (31.0-36.0); Mean Corpuscular Hemoglobin 33.9 pg (27.0-33.0); Mean Platelet Volume 11.7 fL (9.4-12.4); Platelet Count 192 X10*3/uL (160-400); Red Blood Count 4.16 X10*6/uL (4.60-5.80); Red Cell Distribution Width 14.8 % (11.0-16.0); WBC ABN SCTR FOR CBC 1
--- NOTE | 2024-04-14 01:00 | MHC.EDTECH ---
Patient vitals taken and belongings list done ,Call jansen within Pt reach .
[2024-04-14 01:02] LABS: White Blood Count 16.5 X10*3/uL (4.8-10.8)
[2024-04-14 01:03] LABS: Alanine Aminotransferase 30 U/L (0-40); Albumin Level 4.4 g/dL (3.5-5.0); Alkaline Phosphatase 44 U/L (39-117); Anion Gap 16 (12-20); Aspartate Amino Transferase 18 U/L (5-37); Bilirubin Total 0.8 mg/dL (0.0-1.0); Blood Urea Nitrogen 16 mg/dL (9-16); Carbon Dioxide 19 mmol/L (22-29); Chloride 111 mmol/L (96-108); Creatinine Clr Calc Pharmacy 64.4; Estimated Glomerular Filt Rate > 60; Glucose Random 136 mg/dL (60-115); Sodium 142 mmol/L (135-145); Total Protein 7.9 g/dL (6.5-8.0)
[2024-04-14 01:09] LABS: Lactic Acid 1.9 mmol/L (0.5-2.0)
[2024-04-14 01:18] LABS: Band Neutrophils Percent 1 % (3-5); Lymphocytes Absolute Manual 1.5 X10*3/uL (1.2-4.9); Lymphocytes Percent Manual 9 % (20-40); Monocytes Absolute Manual 1.5 X10*3/uL (0.1-1.2); Monocytes Percent Manual 9 % (2-11); Neutrophils Absolute Manual 13.5 X10*3/uL (2.0-8.3); Neutrophils Percent Manual 81 % (45-73)
[2024-04-14 01:19] LABS: Macrocytosis 1+ (5-14) /OIF; Ovalocytes 1+ (5-14) /OIF; Platelet Estimate NORMAL (NORMAL); Platelet Morphology Comment NORMAL; RBC Morphology NOTED; Toxic Vacuolation PRESENT
[2024-04-14 01:20] LABS: B Type Natriuretic Peptide 22 pg/mL (<100)
[2024-04-14 01:22] LABS: Troponin-I High Sensitivity < 2.7 ng/L (<3.5-35.0)
[2024-04-14 01:36] LABS: Influenza A PCR NEGATIVE (Negative); Influenza B PCR NEGATIVE (Negative); Resp Syncy Virus RNA Qual PCR NEGATIVE (Negative); SARS COV2 PCR INHOUSE NEGATIVE (Negative)
--- NOTE | 2024-04-14 07:19 | PC.NURSE ---
Resumed care of pt at 0700. Pt resting in bed quietly, respirations even and unlabored, no increased SOB/WOB, pt on 3L O2 sat 95-97%, audible secretions heard, throat rales. This RN assisted pt with urinal, 600ml output, yellow color. Resting in bed quietly, all needs met at this time, call jansen within reach.
[2024-04-14] MEDS: TRIMETHOPRIM IV (07:59)
[2024-04-14] MEDS: SULFAMETHOXAZOLE IV (07:59)
[2024-04-14] MEDS: DEXTROSE 5% IV (07:59)
[2024-04-14] MEDS: methylPREDNISolone Sod Succ 125 MG/2 ML VIAL IVPUSH (08:00)
--- NOTE | 2024-04-14 08:38 | PC.NURSE ---
Resumed care of pt at 0700. Pt resting in bed quietly, respirations even and unlabored, no increased SOB/WOB, pt on 3L O2 sat 95-97%, audible secretions heard in the throat, rales bilaterally. This RN assisted pt with urinal, 600ml output, yellow color. Resting in bed quietly, all needs met at this time, call jansen within reach.
--- NOTE | 2024-04-14 08:50 | PHA.MEDREC ---
Pharmacy Consult ? Medication Reconciliation Pharmacy has completed the medication reconciliation.Spoke to patient who is difficult to understand. Asked patient if he picks everything up from [facility] and takes them as prescribed. HE confirmed he takes all his medications as prescribed and currently gets all his active meds from [facility]. Used [facility] claims and medical record.
--- NOTE | 2024-04-14 08:52 | P.HPHOSP_ITS ---
History of Present Illness Date of Service: 04/14/24 Chief Complaint: Shortness of breath The patient is a 59-year-old male with a past medical history of chronic respiratory failure with hypoxia on home oxygen secondary to asthma failure, pleural effusion status post decortication, HFrEF with EF of 40-45%, HIV on heart with last CD4 count below 200 in March 2024, chronic dysphagia status post G-tube insertion, hepatitis-C, mood disorder who presented to the emergency room with reports of increased shortness of breath and cough which began on the day prior to admission. The patient is seen and examined in the emergency room. He is currently ill appearing and responds in short sentences. He does not appear to be in any respiratory distress. He indicates that his symptoms began on the evening prior to admission and primarily consisted of shortness of breath. He denies any fevers. He reports intermittent nonproductive coughing. He reports some right- sided chest pain. In the emergency room the patient initially was found to be in respiratory distress with rates in the mid 30s. Imaging studies indicated right-sided findings consisted with aspiration. He was treated with IV steroids and updrafts along with IV Zosyn plus Bactrim. He has been given 1 L of fluids and now will be admitted for further care. 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 Housing: Apartment Do you presently have visiting nurse or other home services: Yes Alcohol intake: never Patient Tobacco Use Status: Former Tobacco user Tobacco use type: Cigarette Smoked in Last 30 Days: No e-Cigarette/Vaping Use: Never Used Second Hand Smoke Exposure: No Use of substances other than those prescribed or required for medical reasons: No Substance Use Type: Crack/Cocaine Advance Directives: Yes Advance Directives on File: Yes Advance Directives Date on File: 04/25/21 Do you have a plan to hurt others: No Plan service: No Current occupational status: disabled Meds Allergies Allergy/AdvReac Type Severity Reaction Status Date / Time Seasonal Allergies Allergy Intermediate Eye Verified 04/14/24 00:06 Drainage codeine Allergy Mild Rash Verified 04/14/24 00:06 [From Tylenol-Codeine #3] levofloxacin [From Levaquin] Allergy Mild Rash Verified 04/14/24 00:06 metoclopramide [From Reglan] Allergy Mild Rash Verified 04/14/24 00:06 acetaminophen Allergy Unknown Rash Verified 04/14/24 00:06 [Tylenol-Codeine #3] Penicillins [PENICILLINS] Allergy Unknown Rash Verified 04/14/24 00:06 ibuprofen [From Motrin] AdvReac Unknown Reflux Verified 04/14/24 00:06 Active Medications: Current Medications Calcium Carbonate (Calcium Carbonate 750 Mg Tab.Chew) 750 mg NG-TUBE Q4H PRN PRN Reason: Heartburn Enoxaparin Sodium (Enoxaparin Sodium 40 Mg/0.4 Ml Syringe) 40 mg SUBCUT Q12H [facility] Trimethoprim/Sulfamethoxazole (300 mg/ Dextrose) 518.75 mls @ 225 mls/hr IV Q8H [facility] Last Admin: 04/14/24 07:59 Dose: 225 mls/hr Vancomycin HCl 1,000 mg/ (Sodium Chloride) 270 mls @ 270 mls/hr IV Q12H [facility] Cefepime HCl 1 gm/ Sodium (Chloride) 50 mls @ 100 mls/hr IV Q8H [facility] Magnesium Hydroxide (Milk Of Magnesia 30 Ml Oral.Susp) 30 ml NG-TUBE DAILY PRN PRN Reason: Constipation Melatonin (Melatonin 3 Mg Tablet) 6 mg NG-TUBE BEDTIME PRN PRN Reason: Insomnia Pharmacy Consult (Consult Rx Vancomycin Dosing) 1 each MISCELLANE DAILY PRN PRN Reason: Consult order Sodium Chloride (0.9 % Sodium Chloride Flush 3 Ml Syringe) 3 ml IVFLUSH QSHIFT [facility] Home Medications ?Medication ?Instructions ?Recorded ?Confirmed ?Last Taken ?Type calcium carbonate 600 mg-vitamin 1 tab feeding tube BID@1200,1800 12/16/23 04/14/24 03/06/24 History D3 20 mcg (800 unit) tablet diphenhydramine HCl 25 mg tablet 50 mg feeding tube BEDTIME 12/16/23 04/14/24 03/06/24 History (Banophen) ferrous gluconate 324 mg (38 mg 324 mg feeding tube BID 12/16/23 04/14/24 03/06/24 History iron) tablet risperidone 3 mg tablet 3 mg feeding tube BEDTIME 12/16/23 04/14/24 03/06/24 History omeprazole 10 mg capsule,delayed 10 mg feeding tube DAILY@0630 01/10/24 04/14/24 03/06/24 History release albuterol sulfate 90 mcg/actuation 2 puff inhalation Q6H PRN wheezing 03/07/24 04/14/24 Unknown History aerosol inhaler (Ventolin HFA) amlodipine 5 mg tablet 5 mg PO DAILY 04/14/24 04/14/24 Unknown History fluconazole 10 mg/mL oral 100 mg feeding tube DAILY 04/14/24 04/14/24 Unknown History suspension megestrol 625 mg/5 mL (125 mg/mL) 5 ml feeding tube DAILY 04/14/24 04/14/24 Unknown History oral suspension Physical Exam 2 Vital Signs and Narrative: Vital Signs: Last Vital Signs Temp 98.0 F 04/14/24 08:35 Pulse 77 04/14/24 08:35 Resp 18 04/14/24 08:35 BP 121/73 04/14/24 08:35 Pulse Ox 95 04/14/24 08:35 O2 Del Method Room Air 04/14/24 08:35 O2 Flow Rate 3 04/14/24 06:21 Oxygen Flow Rate 3 04/14/24 00:02 BMI result Body Mass Index 20.4 Const: Other: Constitutional - Awake and Alert, chronically ill-appearing HEENT - PERRLA, EOMI, dry mucous membranes Cardiovascular - S1S2, RRR, No edema Respiratory -normal respiratory rates coarse breath sounds most pronounced on the right side, saturations in the mid 90s on 2 L Gastrointestinal - NT / ND; +BS; No rebound or guarding, G-tube in place - No CVA tenderness Extremities - no calf tenderness bilaterally, no swelling Musculoskeletal - Normal inspection, normal ROM Skin - Warm/Dry Neurological - awake and alert, responding in 1-2 word answers, able to obey commands, moving all 4 extremities, no focal deficits appreciated Psychological - Appropriate affect Results Labs 04/14/24 00:48 04/14/24 00:40 Labs: Laboratory Results - last 24 hr 04/14/24 04/14/24 00:40 00:48 MCV 100.0 H MCH 33.9 H MCHC 33.9 RDW 14.8 Plt Count 192 D MPV 11.7 Immature Gran % (Auto) Cancelled Neut % (Auto) Cancelled Lymph % (Auto) Cancelled [place] % (Auto) Cancelled Eos % (Auto) Cancelled Baso % (Auto) Cancelled Lymph # (Auto) Cancelled [place] # (Auto) Cancelled Eos # (Auto) Cancelled Baso # (Auto) Cancelled Abs Immat Gran (auto) Cancelled Absolute Neuts (auto) Cancelled Absolute Nucleated RBC 0.000 Nucleated RBC % (auto) 0.0 Neutrophils % (Manual) 81 H Band Neutrophils % 1 L Lymphocytes % (Manual) 9 L Monocytes % (Manual) 9 Abs Neuts (Manual) 13.5 H Lymphocytes # (Manual) 1.5 Monocytes # (Manual) 1.5 H Toxic Vacuolation PRESENT Platelet Estimate NORMAL Plt Morphology Comment NORMAL RBC Morphology NOTED Macrocytosis 1+ (5-14) Ovalocytes 1+ (5-14) Anion Gap 16 Estim Creat Clear Calc 64.4 Estimated GFR > 60 Random Glucose 136 H Lactic Acid 1.9 Calcium 10.0 D Magnesium 2.0 Total Bilirubin 0.8 AST 18 ALT 30 Alkaline Phosphatase 44 Troponin I High Sens < 2.7 B-Natriuretic Peptide 22 Total Protein 7.9 Albumin 4.4 Influenza Type A (PCR) NEGATIVE Influenza Type B (PCR) NEGATIVE RSV RNA Qual (PCR) NEGATIVE SARS-CoV-2 RNA (RT-PCR) NEGATIVE Imaging Radiologist's Impressions: Impressions Chest X-Ray 04/14/24 01:03 IMPRESSION: Minimal left basilar atelectasis without additional acute findings. Chest CT 04/14/24 04:35 IMPRESSION: 1. Limited detailed evaluation of the lungs due to respiratory motion artifact. Semisolid material is present in the lower trachea extending into the right mainstem bronchus and bronchus intermedius. Additional debris is suspected in the left mainstem bronchus. Overall, this could be due to aspiration. 2. Streaky airspace opacities at the left lung base, most consistent with atelectasis. Component of adjacent bronchiolitis cannot be excluded in the setting of motion artifact. 3. Mild patchy ground glass opacity posteriorly in the right upper lobe, suspicious for mild infectious/inflammatory change. Regions of bronchiolitis in the right upper and lower lobes. 4. Borderline enlarged subcarinal lymph node, which may be reactive. 5. Coronary artery calcifications. Correlation with cardiac risk factors is recommended. Assessment and Plan (1) Aspiration into lower respiratory tract: Status: Acute (2) HIV (human immunodeficiency virus infection): Status: Acute Plan This is a 5-year-old male with a past medical history of HIV, chronic respiratory failure, asthma, heart failure with reduced ejection fraction, chronic dysphagia with G-tube who presents with a 1 day history of shortness of breath and cough. Workup in the emergency room is consistent with aspiration pneumonia. 1. Sepsis secondary to aspiration pneumonia Meets sepsis criteria with leukocytosis, tachycardia and tachypnea No severe features Similar to prior presentations. Will treat with IV vancomycin (prior nasal MRSA positive), IV cefepime Will consult ID as CD4 count is below 200, question need for PCP coverage Follow culture data 2. Chronic respiratory failure with hypoxia Initially with some tachypnea, however no evidence of hypoxia Continue baseline oxygen 3. HIV on HAART CD4 count checked during last admission below 200 Will consult Infectious Disease 4. Mood Continue baseline meds 5. HFrEF Clinically appears dry Does not appear to be on diuretics at home Will monitor 6. Hypertension BP normotensive, will monitor off antihypertensives at this time 7. Chronic dysphagia Continue tube feeds will consult Nutrition Full code DVT prophylaxis - Lovenox Patient with sepsis and significant respiratory distress due to aspiration pneumonia, complicated by CD4 count below 200, therefore expected to require at least 2 midnights in the hospital for treatment. Hence he will be admitted as inpatient. Quality Stroke Does the patient have a stroke diagnosis?: No VTE Prior VTE?: No VTE Risk Level:: Medical - moderate - high VTE Device Contraindication: N/A - Device Ordered VTE Drug Contraindication: N/A - Med Ordered
[2024-04-14] MEDS: vancomycin HCL 1,500 MG in 0.9 % Sodium Chloride 500 ML 333.33 MG IV (09:28)
--- NOTE | 2024-04-14 10:14 | PHA.PROG ---
Admission Date/Time: April 14, 2024 08:49 Indication: respiratory infection Weight in k.4 kg Adjusted body weight in Kg: [place] body weight in Kg: Obesity Dosing Indication % IBW: BMI 20.4 Serum Creatinine - Last 168 Hours 04/14/24 00:40 Creatinine 0.99 Estimated CrCl and GFR - Last 168 Hours 04/14/24 00:40 Estim Creat Clear Calc 64.4 Estimated GFR > 60 Vancomycin Loading Dose: 1500 X1 Current Vancomycin Dosing Regimen: 750mg Q12H Vancomycin Monitoring using AUC goal of 400 - 600 range with trough as surrogate marker: 536 Date and Time for next Vancomycin Level to be drawn: 04/15 Pharmacist Comments on Vancomycin Plan: predicted trough 17.4 Vancomycin dosing will take advantage of [employer] as a clinical decision support tool that uses Bayesian modeling to calculate individual patient's pharmacokinetic parameters and forecast the patient's drug concentration time course with the target goal AUC 24 range of 400 - 600 mg/L/hr.
[2024-04-14] MEDS: cefEPime HCl 2 GM in 0.9 % Sodium Chloride 50 ML IV ×2 (10:20→17:14)
[2024-04-14] MEDS: Enoxaparin Sodium 40 MG/0.4 ML SYRINGE SUBCUT ×2 (10:29→21:31)
--- NOTE | 2024-04-14 11:01 | PC.NURSE ---
[place] Park delayed d/t not being in the pyxis, pharmacy notified.
[2024-04-14] MEDS: Fluconazole 100 MG TABLET G-TUBE (11:52)
[2024-04-14] MEDS: Bictegrav/Emtricit/Tenofov Ala TABLET 1 TAB PO (11:52)
--- NOTE | 2024-04-14 12:04 | MHC.CLN ---
NUTRITION CONSULT FOR TUBE FEEDING. PATIENT KNOWN FROM PRIOR ADMISSIONS. CURRENT TUBE FEED ORDER APPROPRIATE: JEVITY 1.0 AT MAX GOAL RATE 65 ML/HOUR, FREE WATER FLUSH 120 ML Q 6 HOURS. PROVIDES 1654 KCALS (28.8 KCALS/KG), 69 G PROTEIN (1.2G/KG), 1783 ML TOTAL WATER FROM FORMULA AND FLUSHES (31ML/KG). START RATE 20 ML PER HOUR AND ADVANCE TO MAX GOAL RATE PER ORDERS. CONTINUE TO MONITOR TOLERANCE, RESIDUALS AND LYTES. CLINICAL NUTRITION ASSESSMENT TO BE COMPLETED UPON ADMISSION.
--- NOTE | 2024-04-14 12:54 | PC.NURSE ---
Pt endorsing 4/10 headache. This RN reached out to provider about pain med with lower scale. Per MD ok to give tylenol.
[2024-04-14] MEDS: Acetaminophen 325 MG TABLET 650 MG PO (12:56)
[2024-04-14] MEDS: Gabapentin 600 MG TABLET G-TUBE ×2 (15:30→21:31)
--- NOTE | 2024-04-14 16:00 | P.CNID_ITS ---
History of Present Illness Data of Consult Service Date: 04/14/24 Requesting physician: Casey Almonte Primary Care Provider: Unknown Physician HPI Reason for consult: shortness of breath,HIV He presents with worsening shortness of breath. He has 97% oxygen now with 3 liters He has had decortication as well as admission mucus plugging. He was discharged on po linezolid/ CT scan no empyema or acute issues. Review of Systems 2 Review of Systems: Yes all other systems are reviewed and are negative [facility] Past Medical History Medical History Asthma Dysphagia Adult failure to thrive Adult failure to thrive Multiple rib fractures History of empyema of pleura (01/05/23) Hypertension Closed fracture of leg Hepatitis C Kidney stones Pleuritic chest pain Pneumonia Substance abuse Hemorrhoids Depression HIV (human immunodeficiency virus infection) Asthma Family History Family history: reviewed and not pertinent Surgical History Surgical History H/O hemorrhoidectomy Social History Social History Household Members: Other Household Members Other:: lives with [employer] Housing: Apartment Do you presently have visiting nurse or other home services: Yes Alcohol intake: never Patient Tobacco Use Status: Former Tobacco user Tobacco use type: Cigarette Smoked in Last 30 Days: No e-Cigarette/Vaping Use: Never Used Second Hand Smoke Exposure: No Use of substances other than those prescribed or required for medical reasons: No Substance Use Type: Crack/Cocaine Advance Directives: Yes Advance Directives on File: Yes Advance Directives Date on File: 04/25/21 Do you have a plan to hurt others: No Plan Nutrition Risks: Receiving home tube feeding or CPN service: No Current occupational status: disabled Meds Allergies Allergy/AdvReac Type Severity Reaction Status Date / Time Seasonal Allergies Allergy Intermediate Eye Verified 04/14/24 00:06 Drainage codeine Allergy Mild Rash Verified 04/14/24 00:06 [From Tylenol-Codeine #3] levofloxacin [From Levaquin] Allergy Mild Rash Verified 04/14/24 00:06 metoclopramide [From Reglan] Allergy Mild Rash Verified 04/14/24 00:06 acetaminophen Allergy Unknown Rash Verified 04/14/24 00:06 [Tylenol-Codeine #3] Penicillins [PENICILLINS] Allergy Unknown Rash Verified 04/14/24 00:06 ibuprofen [From Motrin] AdvReac Unknown Reflux Verified 04/14/24 00:06 Active Medications: Current Medications Acetaminophen (Acetaminophen 325 Mg Tablet) 650 mg PO Q6H PRN PRN Reason: Pain, Moderate(Pain Scale 4-6) Last Admin: 04/14/24 12:56 Dose: 650 mg Albuterol Sulfate (Albuterol Sulfate 90 Mcg 8 Gm Inhaler) 2 puff INHALE Q6H PRN PRN Reason: wheezing Bictegravir/Emtricitabine/Tenofovir (Bictegrav/Emtricit/Tenofov Ala Tablet) 1 tab PO DAILY [facility] Last Admin: 04/14/24 11:52 Dose: 1 tab Calcium Carbonate (Calcium Carbonate 750 Mg Tab.Chew) 750 mg G-TUBE Q4H PRN PRN Reason: Heartburn Clonazepam (Clonazepam 1 Mg Tablet) 1 mg G-TUBE DAILY [facility] Diphenhydramine HCl (Diphenhydramine Hcl 25 Mg Capsule) 50 mg G-TUBE BEDTIME MICHAEL Enoxaparin Sodium (Enoxaparin Sodium 40 Mg/0.4 Ml Syringe) 40 mg SUBCUT Q12H [facility] Last Admin: 04/14/24 10:29 Dose: 40 mg Fluconazole (Fluconazole 100 Mg Tablet) 100 mg G-TUBE DAILY [facility] Last Admin: 04/14/24 11:52 Dose: 100 mg Gabapentin (Gabapentin 600 Mg Tablet) 600 mg G-TUBE TID [facility] Last Admin: 04/14/24 15:30 Dose: 600 mg Cefepime HCl 2 gm/ Sodium (Chloride) 50 mls @ 100 mls/hr IV Q8H [facility] Last Infusion: 04/14/24 11:05 Dose: Infused Vancomycin HCl 750 mg/ Sodium (Chloride) 265 mls @ 265 mls/hr IV Q12H [facility] Magnesium Hydroxide (Milk Of Magnesia 30 Ml Oral.Susp) 30 ml G-TUBE DAILY PRN PRN Reason: Constipation Megestrol Acetate (Megestrol Acetate 400 Mg/10 Ml Oral.Susp) 625 mg PO DAILY [facility] Melatonin (Melatonin 3 Mg Tablet) 6 mg G-TUBE BEDTIME PRN PRN Reason: Insomnia Mirtazapine (Mirtazapine 30 Mg Tablet) 60 mg G-TUBE BEDTIME MICHAEL Omeprazole (Omeprazole/Na Bicarb Oral Susp 20 Mg/10 Ml Ud Cup) 10 mg G-TUBE DAILY@0630 [facility] Pharmacy Consult (Consult Rx Vancomycin Dosing) 1 each MISCELLANE DAILY PRN PRN Reason: Consult order Risperidone (Risperidone 3 Mg Tablet) 3 mg G-TUBE BEDTIME [facility] Sodium Chloride (0.9 % Sodium Chloride Flush 3 Ml Syringe) 3 ml IVFLUSH QSHIFT MICHAEL Tramadol HCl (Tramadol Hcl 50 Mg Tablet) 50 mg G-TUBE BID PRN PRN Reason: Pain (Scale Score 7-10) Home Medications ?Medication ?Instructions ?Recorded ?Confirmed ?Last Taken ?Type calcium carbonate 600 mg-vitamin 1 tab feeding tube BID@1200,1800 12/16/23 04/14/24 03/06/24 History D3 20 mcg (800 unit) tablet diphenhydramine HCl 25 mg tablet 50 mg feeding tube BEDTIME 12/16/23 04/14/24 03/06/24 History (Banophen) ferrous gluconate 324 mg (38 mg 324 mg feeding tube BID 12/16/23 04/14/24 03/06/24 History iron) tablet risperidone 3 mg tablet 3 mg feeding tube BEDTIME 12/16/23 04/14/24 03/06/24 History omeprazole 10 mg capsule,delayed 10 mg feeding tube DAILY@0630 01/10/24 04/14/24 03/06/24 History release albuterol sulfate 90 mcg/actuation 2 puff inhalation Q6H PRN wheezing 03/07/24 04/14/24 Unknown History aerosol inhaler (Ventolin HFA) amlodipine 5 mg tablet 5 mg PO DAILY 04/14/24 04/14/24 Unknown History fluconazole 10 mg/mL oral 100 mg feeding tube DAILY 04/14/24 04/14/24 Unknown History suspension megestrol 625 mg/5 mL (125 mg/mL) 5 ml feeding tube DAILY 04/14/24 04/14/24 Unknown History oral suspension Physical Exam 2 Vital Signs: Vital Signs: Last Vital Signs Temp 97.7 F 04/14/24 12:04 Pulse 78 04/14/24 12:04 Resp 22 H 04/14/24 12:04 BP 111/69 04/14/24 12:04 Pulse Ox 97 04/14/24 12:04 O2 Del Method Nasal Cannula 04/14/24 12:04 O2 Flow Rate 3 04/14/24 12:04 Oxygen Flow Rate 3 04/14/24 00:02 BMI result Body Mass Index 20.4 Const: General: cooperative HEENT: Head: Yes normal to inspection Face and sinus: Yes normal facial exam Mouth: Normal oral and palatal mucosa present Teeth and gingiva: d entition normal Eyes: General: appearance normal, both eyes and all related structures P upils: Equal, round and reactive pupils present Resp: Effort & Inspection: normal respiratory effort Cardio: Rate: regular rate Rhythm: regular rhythm GI: Palpation (GI): Soft to palpation and nontender : General: Yes no CVA tenderness Back/Spine/Pelvis: Back: no CVA tenderness Skin: General skin exam: no rashes or lesions noted Neuro: General: moves all extremities Cranial nerves: Yes Equal, round and reactive pupils present Extrem: General: Yes normal to inspection Psych: Appearance: grossly normal Results Labs 04/14/24 00:48 04/14/24 00:40 Labs: Short CBC 04/14/24 Range/Units 00:48 WBC 16.5 H (4.8-10.8) X10*3/uL Hgb 14.1 (14.0-18.0) g/dl Hct 41.6 L (42.0-52.0) % Plt Count 192 D (160-400) X10*3/uL BMP 04/14/24 00:40 Sodium 142 Potassium 4.0 Chloride 111 H Carbon Dioxide 19 L BUN 16 Creatinine 0.99 Calcium 10.0 D Liver Function 04/14/24 Range/Units 00:40 Total Bilirubin 0.8 (0.0-1.0) mg/dL AST 18 (5-37) U/L ALT 30 (0-40) U/L Alkaline Phosphatase 44 (39-117) U/L Albumin 4.4 (3.5-5.0) g/dL Assessment and Plan (1) Aspiration into lower respiratory tract: Status: Acute (2) HIV (human immunodeficiency virus infection): Status: Acute Plan Probable bronchiectasis on Vancomycin and Cefepime. Aspiration likely also Check nares MRSA and stop Vancomycin if negative. Otherwise 3-5 d IV Cefepime. HIV CD4 count low due to illness and viral load undetectable so unlikely OI.
[2024-04-14] MEDS: traMADoL HCL 50 MG TABLET G-TUBE ×2 (17:19→21:32)
[2024-04-14] MEDS: 0.9 % Sodium Chloride Flush 3 ML SYRINGE IVFLUSH ×2 (17:41→21:32)
--- NOTE | 2024-04-14 19:27 | MHC.EDTECH ---
This tech took over care of patient at 1900,hourly rounds and vitals completed,repositioned to comfort call jansen in reach
[2024-04-14] MEDS: Melatonin 3 MG TABLET 6 MG G-TUBE (21:32)
[2024-04-14] MEDS: diphenhydrAMINE HCL 25 MG CAPSULE 50 MG G-TUBE (21:32)
[2024-04-14] MEDS: Mirtazapine 30 MG TABLET 60 MG G-TUBE (21:32)
[2024-04-14] MEDS: vancomycin HCL 750 MG in 0.9 % Sodium Chloride 250 ML 265 MG IV (21:33)
[2024-04-15] MEDS: cefEPime HCl 2 GM in 0.9 % Sodium Chloride 50 ML IV ×3 (01:14→16:38)
[2024-04-15 03:54] VITALS: BP 116/72; PULSE 67; RESP 16; TEMP 36.9; O2SAT 96
[2024-04-15] MEDS: Omeprazole/Na Bicarb Oral Susp 20 MG/10 ML UD Cup 10 MG G-TUBE (05:49)
--- NOTE | 2024-04-15 06:11 | PC.NURSE ---
Pt AOx3, able to make needs known. Pt given PRN pain medication for 9/10 pain, see MAR for administration. He is on 3L O2 NC which his baseline is 3-4L. GTube patent, no residuals. Pt ambulates to bathroom x1 assist, he states he does not use an assistive device at all. Pt oriented to hospital, safety measures, and call jansen. Call jansen within reach, bed alarm is on.
[2024-04-15 06:17] LABS: Hematocrit 37.8 % (42.0-52.0); Hemoglobin 12.6 g/dl (14.0-18.0); Mean Corpuscular HGB Conc 33.3 g/dl (31.0-36.0); Mean Corpuscular Hemoglobin 33.9 pg (27.0-33.0); Mean Corpuscular Volume 101.6 fL (80.0-98.0); Mean Platelet Volume 12.3 fL (9.4-12.4); Platelet Count 179 X10*3/uL (160-400); Red Blood Count 3.72 X10*6/uL (4.60-5.80); Red Cell Distribution Width 14.7 % (11.0-16.0); White Blood Count 15.9 X10*3/uL (4.8-10.8)
[2024-04-15 06:49] LABS: Anion Gap 12 (12-20); Blood Urea Nitrogen 19 mg/dL (9-16); Calcium 8.8 mg/dL (8.4-10.2); Carbon Dioxide 19 mmol/L (22-29); Chloride 113 mmol/L (96-108); Creatinine Clr Calc Pharmacy 80.4; Estimated Glomerular Filt Rate > 60; Glucose Random 92 mg/dL (60-115); Potassium 4.2 mmol/L (3.3-5.1); Sodium 140 mmol/L (135-145)
[2024-04-15 07:39] VITALS: BP 117/70; PULSE 65; RESP 17; TEMP 37.2; O2SAT 95
--- NOTE | 2024-04-15 09:15 | P.PNIM_ITS ---
Subjective Subjective Date of Service: 04/15/24 Interval History: weakness Physical Exam 2 Vital Signs: Vital Signs: Last Vital Signs Temp 99.0 F 04/15/24 07:39 Pulse 65 04/15/24 07:39 Resp 17 04/15/24 07:39 BP 117/70 04/15/24 07:39 Pulse Ox 95 04/15/24 07:39 O2 Del Method Nasal Cannula 04/15/24 07:39 O2 Flow Rate 2.0 04/15/24 07:39 Oxygen Flow Rate 3 04/14/24 00:02 BMI result Body Mass Index 20.4 Constitutional - Awake and Alert, chronically ill-appearing HEENT - PERRLA, EOMI, dry mucous membranes Cardiovascular - S1S2, RRR, No edema Respiratory -normal respiratory rates coarse breath sounds most pronounced on the right side, saturations in the mid 90s on 2 L Gastrointestinal - NT / ND; +BS; No rebound or guarding, G-tube in place - No CVA tenderness Extremities - no calf tenderness bilaterally, no swelling Musculoskeletal - Normal inspection, normal ROM Skin - Warm/Dry Neurological - awake and alert, responding in 1-2 word answers, able to obey commands, moving all 4 extremities, no focal deficits appreciated Psychological - Appropriate affect Objective Data Active Medications Acetaminophen (Acetaminophen 325 Mg Tablet) 650 mg PO Q6H PRN PRN Reason: Pain, Moderate(Pain Scale 4-6) Last Admin: 04/14/24 12:56 Dose: 650 mg Documented By: FLAVIA Albuterol Sulfate (Albuterol Sulfate 90 Mcg 8 Gm Inhaler) 2 puff INHALE Q6H PRN PRN Reason: wheezing Bictegravir/Emtricitabine/Tenofovir (Bictegrav/Emtricit/Tenofov Ala Tablet) 1 tab PO DAILY [facility] Last Admin: 04/14/24 11:52 Dose: 1 tab Documented By: FLAVIA Calcium Carbonate (Calcium Carbonate 750 Mg Tab.Chew) 750 mg G-TUBE Q4H PRN PRN Reason: Heartburn Clonazepam (Clonazepam 1 Mg Tablet) 1 mg G-TUBE DAILY MICHAEL Diphenhydramine HCl (Diphenhydramine Hcl 25 Mg Capsule) 50 mg G-TUBE BEDTIME MICHAEL Last Admin: 04/14/24 21:32 Dose: 50 mg Documented By: TANESHA Enoxaparin Sodium (Enoxaparin Sodium 40 Mg/0.4 Ml Syringe) 40 mg SUBCUT Q12H [facility] Last Admin: 04/14/24 21:31 Dose: 40 mg Documented By: TANESHA Fluconazole (Fluconazole 100 Mg Tablet) 100 mg G-TUBE DAILY [facility] Last Admin: 04/14/24 11:52 Dose: 100 mg Documented By: FLAVIA Gabapentin (Gabapentin 600 Mg Tablet) 600 mg G-TUBE TID [facility] Last Admin: 04/14/24 21:31 Dose: 600 mg Documented By: TANESHA Cefepime HCl 2 gm/ Sodium (Chloride) 50 mls @ 100 mls/hr IV Q8H [facility] Last Infusion: 04/15/24 01:45 Dose: Infused Documented By: TANESHA Vancomycin HCl 750 mg/ Sodium (Chloride) 265 mls @ 265 mls/hr IV Q12H [facility] Last Infusion: 04/14/24 22:42 Dose: Infused Documented By: TANESHA Magnesium Hydroxide (Milk Of Magnesia 30 Ml Oral.Susp) 30 ml G-TUBE DAILY PRN PRN Reason: Constipation Megestrol Acetate (Megestrol Acetate 400 Mg/10 Ml Oral.Susp) 625 mg PO DAILY [facility] Melatonin (Melatonin 3 Mg Tablet) 6 mg G-TUBE BEDTIME PRN PRN Reason: Insomnia Last Admin: 04/14/24 21:32 Dose: 6 mg Documented By: TANESHA Mirtazapine (Mirtazapine 30 Mg Tablet) 60 mg G-TUBE BEDTIME [facility] Last Admin: 04/14/24 21:32 Dose: 60 mg Documented By: TANESHA Omeprazole (Omeprazole/Na Bicarb Oral Susp 20 Mg/10 Ml Ud Cup) 10 mg G-TUBE DAILY@0630 [facility] Last Admin: 04/15/24 05:49 Dose: 10 mg Documented By: TANESHA Pharmacy Consult (Consult Rx Vancomycin Dosing) 1 each MISCELLANE DAILY PRN PRN Reason: Consult order Risperidone (Risperidone 3 Mg Tablet) 3 mg G-TUBE BEDTIME [facility] Last Admin: 04/14/24 21:34 Dose: Not Given Documented By: TANESHA Non-Admin Reason: Med Not Available Sodium Chloride (0.9 % Sodium Chloride Flush 3 Ml Syringe) 3 ml IVFLUSH QSHIFT [facility] Last Admin: 04/14/24 21:32 Dose: 3 ml Documented By: TANESHA Tramadol HCl (Tramadol Hcl 50 Mg Tablet) 50 mg G-TUBE BID PRN PRN Reason: Pain (Scale Score 7-10) Last Admin: 04/14/24 21:32 Dose: 50 mg Documented By: TANESHA Labs 04/15/24 05:16 04/15/24 05:16 Labs: Laboratory Results - last 24 hr 04/15/24 05:16 MCV 101.6 H MCH 33.9 H MCHC 33.3 RDW 14.7 Plt Count 179 MPV 12.3 Absolute Nucleated RBC 0.000 Nucleated RBC % (auto) 0.0 Anion Gap 12 Estim Creat Clear Calc 80.4 Estimated GFR > 60 Random Glucose 92 Calcium 8.8 D Microbiology Microbiology Results: Microbiology 04/14/24 00:48 Blood Culture - Preliminary Blood - Venous No growth after 24 hours. 04/14/24 00:40 Blood Culture - Preliminary Blood - Venous No growth after 24 hours. Assessment and Plan (1) Aspiration into lower respiratory tract: Status: Acute Plan 59M PMH hiv (viral load undetectable), chronic hypoxic respiratory failure on 2L, hfref, chronic dysphagia s/p gtube presented with sob and cough sepsis due to aspiration pneumonia ID appreciated, unlikely Oppurtunistic infection due to undetectable HIV, low CD4 count likely due to chronic illness continue vanc, cefepime 3-5 days (can dc vanc if mrsa screen negative, but has been positive recently) chronic hypoxic respiraotry failure due to chronic aspiration on baseline o2 hiv continue haart hfref on drier take off tender side, monitor chronic dysphagia continue gtube feeds full code dvt prophylaxis - lovenox reason for continued hospitalization: iv abx planb for 3-5 days Quality Stroke Does the patient have a stroke diagnosis?: No VTE Prior VTE?: No VTE Risk Level:: Medical - moderate - high VTE Device Contraindication: N/A - Device Ordered VTE Drug Contraindication: N/A - Med Ordered
[2024-04-15] MEDS: clonazePAM 1 MG TABLET G-TUBE (09:24)
[2024-04-15] MEDS: Fluconazole 100 MG TABLET G-TUBE (09:24)
[2024-04-15] MEDS: Gabapentin 600 MG TABLET G-TUBE ×3 (09:24→21:25)
[2024-04-15] MEDS: Enoxaparin Sodium 40 MG/0.4 ML SYRINGE SUBCUT ×2 (09:24→21:42)
[2024-04-15] MEDS: Megestrol Acetate 400 MG/10 ML ORAL.SUSP 625 MG PO (09:24)
[2024-04-15] MEDS: traMADoL HCL 50 MG TABLET G-TUBE ×2 (09:25→21:25)
[2024-04-15] MEDS: 0.9 % Sodium Chloride Flush 3 ML SYRINGE IVFLUSH ×3 (09:25→21:47)
--- NOTE | 2024-04-15 09:48 | MHC.CM.PN ---
IMM delivered. Patient lives in an apartment w/ SARY Chamorro ([phone]) who assists w/ all care. Active w/ [facility] for SN BID. Patient has a G-Tube. Kangaroo pump and all feeding supplies through [facility]. Home O2 via [employer]. Reports he ambulates w/ wheeled walker. PCP: Dr. Lg Keenan at [facility] HCP on file and verified. Agent is Ute, patient's sister. DP: Goal is home, resume services, [employer] to transport. Has declined STR in the past and states he would continue to decline. CM will continue to follow for DC needs.
[2024-04-15] MEDS: Bictegrav/Emtricit/Tenofov Ala TABLET 1 TAB PO (10:24)
[2024-04-15] MEDS: vancomycin HCL 750 MG in 0.9 % Sodium Chloride 250 ML 265 MG IV ×2 (10:24→21:48)
[2024-04-15 11:14] VITALS: BMI 20.4
[2024-04-15 11:36] VITALS: BP 120/76; PULSE 62; RESP 17; TEMP 36.9; O2SAT 97
[2024-04-15 15:38] VITALS: BP 117/70; PULSE 71; RESP 18; TEMP 36.3; O2SAT 93
[2024-04-15] MEDS: guaiFENesin DM 200/20/10 ML 10 ML SYRUP G-TUBE (18:36)
[2024-04-15 19:22] VITALS: BP 126/75; PULSE 65; RESP 18; TEMP 36.4; O2SAT 95
[2024-04-15 20:04] LABS: Vancomycin Random 11.3 mcg/mL (15-20)
--- NOTE | 2024-04-15 20:17 | HE.PHANOTE ---
Re: [place] Renal function is improving. Continue current dose of 750mg q12h with predicted AUC 561 and predicted trough 18.4. Next trough is 04/16 @ 1999.
[2024-04-15] MEDS: diphenhydrAMINE HCL 25 MG CAPSULE 50 MG G-TUBE (21:24)
[2024-04-15] MEDS: risperiDONE 3 MG TABLET G-TUBE (21:25)
[2024-04-15] MEDS: Mirtazapine 30 MG TABLET 60 MG G-TUBE (21:25)
[2024-04-15 23:51] VITALS: BP 125/72; PULSE 65; RESP 16; TEMP 36.4; O2SAT 94
[2024-04-16] MEDS: cefEPime HCl 2 GM in 0.9 % Sodium Chloride 50 ML IV ×3 (01:07→18:03)
[2024-04-16 02:40] VITALS: BP 122/79; PULSE 65; RESP 18; TEMP 36.3; O2SAT 96
[2024-04-16] MEDS: Omeprazole/Na Bicarb Oral Susp 20 MG/10 ML UD Cup 10 MG G-TUBE (05:23)
[2024-04-16] MEDS: guaiFENesin DM 200/20/10 ML 10 ML SYRUP G-TUBE ×3 (05:58→23:07)
[2024-04-16 07:00] VITALS: BP 114/66; PULSE 67; RESP 15; TEMP 36.1; O2SAT 96
[2024-04-16 07:08] LABS: Hematocrit 37.5 % (42.0-52.0); Hemoglobin 12.8 g/dl (14.0-18.0); Mean Corpuscular HGB Conc 34.1 g/dl (31.0-36.0); Mean Corpuscular Volume 99.7 fL (80.0-98.0); Mean Platelet Volume 12.1 fL (9.4-12.4); Platelet Count 184 X10*3/uL (160-400); Red Blood Count 3.76 X10*6/uL (4.60-5.80); Red Cell Distribution Width 14.6 % (11.0-16.0); White Blood Count 8.2 X10*3/uL (4.8-10.8)
[2024-04-16 07:26] LABS: Anion Gap 12 (12-20); Blood Urea Nitrogen 18 mg/dL (9-16); Calcium 8.6 mg/dL (8.4-10.2); Carbon Dioxide 22 mmol/L (22-29); Chloride 111 mmol/L (96-108); Creatinine Clr Calc Pharmacy 85.8; Estimated Glomerular Filt Rate > 60; Glucose Fasting 101 mg/dL (60-99); Potassium 3.7 mmol/L (3.3-5.1); Sodium 141 mmol/L (135-145)
[2024-04-16] MEDS: traMADoL HCL 50 MG TABLET G-TUBE ×2 (09:01→23:07)
[2024-04-16] MEDS: Gabapentin 600 MG TABLET G-TUBE ×3 (09:01→23:08)
[2024-04-16] MEDS: Fluconazole 100 MG TABLET G-TUBE (09:01)
[2024-04-16] MEDS: Bictegrav/Emtricit/Tenofov Ala TABLET 1 TAB PO (09:01)
[2024-04-16] MEDS: clonazePAM 1 MG TABLET G-TUBE (09:02)
[2024-04-16] MEDS: Megestrol Acetate 400 MG/10 ML ORAL.SUSP 625 MG PO (09:34)
[2024-04-16] MEDS: Enoxaparin Sodium 40 MG/0.4 ML SYRINGE SUBCUT ×2 (09:34→23:09)
[2024-04-16] MEDS: 0.9 % Sodium Chloride Flush 3 ML SYRINGE IVFLUSH ×2 (09:35→16:23)
[2024-04-16] MEDS: vancomycin HCL 750 MG in 0.9 % Sodium Chloride 250 ML 265 MG IV (10:47)
--- NOTE | 2024-04-16 12:41 | MHC.CLN ---
F/U PAPTIENT TOLERATING CURRENT TUBE FEEDING AT MAX GOAL RATE: JEVITY 1.0 AT MAX GOAL RATE 65 ML/HOUR CONTINUOUS, FREE WATER FLUSH 120 ML Q 6 HOURS. PROVIDES 1654 KCALS (28.8 KCALS/KG), 69 G PROTEIN (1.2G/KG), 1783 ML TOTAL WATER FROM FORMULA AND FLUSHES (31ML/KG). PROVIDER ASKING FOR REC FOR DAYTIME FEEDING. FOR 12 HOURS: RECOMMEND JEVITY 1.0 AT 130 ML PER HOUR X 12 HOURS, STARTING IN AM FOR DAYTIME FEEDING. FREE WATER FLUSH 120 ML Q 6 HOURS. PROVIDES SAME NUTRITION ABOVE. FOR 16 HOURS: RECOMMEND JEVITY 1.0 AT 100 ML PER HOUR X 16 HOURS, STARTING IN AM FOR DAYTIME FEEDING. FREE WATER FLUSH 120 ML Q 6 HOURS. PROVIDES 1696 KCALS (29.7 KCALS/KG), 71 G PROTEIN (1.2G/KG), 1816 ML TOTAL WATER FROM FORMULA AND FLUSHES (31.7 ML/KG). CONTINUE TO MONITOR TOLERANCE, RESIDUALS AND LYTES.
--- NOTE | 2024-04-16 14:54 | HO.PM.IMPN ---
Subjective Subjective Date of Service: 04/16/24 Interval History: seen and evaluated looks weak and exhausted tolerating O2 supplement Cough and SOB no other events reported Review of Systems Review of Systems: Yes all other systems are reviewed and are negative Physical Exam Vital Signs: Vital Signs: Last Vital Signs Temp 96.9 F 04/16/24 07:00 Pulse 67 04/16/24 07:00 Resp 15 04/16/24 07:00 BP 114/66 04/16/24 07:00 Pulse Ox 96 04/16/24 07:00 O2 Del Method Nasal Cannula 04/16/24 07:00 O2 Flow Rate 3 04/16/24 02:40 Oxygen Flow Rate 3 04/14/24 00:02 BMI result Body Mass Index 20.4 Const: Other: Constitutional : Awake, interactive, looks frail and weak, not in distress Neck : Normal inspection, Supple Cardiovascular : RRR, no JVP, no lower extremity edema Respiratory : good bilateral air entry, RLL basal fine crackles, no wheezes Gastrointestinal: soft, lax, Normal bowel sounds, G-tube in place Non tender Skin : Warm, Dry Neurological : Alert & oriented to self, No focal deficit Objective Data Active Medications Acetaminophen (Acetaminophen 325 Mg Tablet) 650 mg PO Q6H PRN PRN Reason: Pain, Moderate(Pain Scale 4-6) Last Admin: 04/14/24 12:56 Dose: 650 mg Documented By: FLAVIA Albuterol Sulfate (Albuterol Sulfate 90 Mcg 8 Gm Inhaler) 2 puff INHALE Q6H PRN PRN Reason: wheezing Albuterol Sulfate (Albuterol Sulfate (0.083%) 2.5 Mg/3 Ml Vial.Neb) 2.5 mg INHALE Q4H PRN PRN Reason: Shortness of Breath/Wheezing Albuterol/Ipratropium (Albuterol/Iprat 2.5/0.5mg 3 Ml Ampul.Neb) 3 ml INHALE RQ6H WHILE AWAKE MICHAEL Bictegravir/Emtricitabine/Tenofovir (Bictegrav/Emtricit/Tenofov Ala Tablet) 1 tab PO DAILY [facility] Last Admin: 04/16/24 09:01 Dose: 1 tab Documented By: MICHELLE Calcium Carbonate (Calcium Carbonate 750 Mg Tab.Chew) 750 mg G-TUBE Q4H PRN PRN Reason: Heartburn Clonazepam (Clonazepam 1 Mg Tablet) 1 mg G-TUBE DAILY [facility] Last Admin: 04/16/24 09:02 Dose: 1 mg Documented By: MICHELLE Diphenhydramine HCl (Diphenhydramine Hcl 25 Mg Capsule) 50 mg G-TUBE BEDTIME [facility] Last Admin: 04/15/24 21:24 Dose: 50 mg Documented By: ROB Enoxaparin Sodium (Enoxaparin Sodium 40 Mg/0.4 Ml Syringe) 40 mg SUBCUT Q12H [facility] Last Admin: 04/16/24 09:34 Dose: 40 mg Documented By: MICHELLE Fluconazole (Fluconazole 100 Mg Tablet) 100 mg G-TUBE DAILY [facility] Last Admin: 04/16/24 09:01 Dose: 100 mg Documented By: MICHELLE Gabapentin (Gabapentin 600 Mg Tablet) 600 mg G-TUBE TID [facility] Last Admin: 04/16/24 09:01 Dose: 600 mg Documented By: MICHELLE Guaifenesin/Dextromethorphan (Guaifenesin Dm 200/20/10 Ml 10 Ml Syrup) 10 ml G-TUBE Q6H PRN PRN Reason: Cough Last Admin: 04/16/24 13:20 Dose: 10 ml Documented By: MICHELLE Cefepime HCl 2 gm/ Sodium (Chloride) 50 mls @ 100 mls/hr IV Q8H [facility] Last Infusion: 04/16/24 09:28 Dose: Infused Documented By: MICHELLE Vancomycin HCl 750 mg/ Sodium (Chloride) 265 mls @ 265 mls/hr IV Q12H [facility] Last Infusion: 04/16/24 12:02 Dose: Infused Documented By: MICHELLE Magnesium Hydroxide (Milk Of Magnesia 30 Ml Oral.Susp) 30 ml G-TUBE DAILY PRN PRN Reason: Constipation Megestrol Acetate (Megestrol Acetate 400 Mg/10 Ml Oral.Susp) 625 mg PO DAILY [facility] Last Admin: 04/16/24 09:34 Dose: 625 mg Documented By: MICHELLE Melatonin (Melatonin 3 Mg Tablet) 6 mg G-TUBE BEDTIME PRN PRN Reason: Insomnia Last Admin: 04/14/24 21:32 Dose: 6 mg Documented By: TANESHA Mirtazapine (Mirtazapine 30 Mg Tablet) 60 mg G-TUBE BEDTIME [facility] Last Admin: 04/15/24 21:25 Dose: 60 mg Documented By: ROB Omeprazole (Omeprazole/Na Bicarb Oral Susp 20 Mg/10 Ml Ud Cup) 10 mg G-TUBE DAILY@0630 [facility] Last Admin: 04/16/24 05:23 Dose: 10 mg Documented By: ROB Pharmacy Consult (Consult Rx Vancomycin Dosing) 1 each MISCELLANE DAILY PRN PRN Reason: Consult order Risperidone (Risperidone 3 Mg Tablet) 3 mg G-TUBE BEDTIME [facility] Last Admin: 04/15/24 21:25 Dose: 3 mg Documented By: ROB Sodium Chloride (0.9 % Sodium Chloride Flush 3 Ml Syringe) 3 ml IVFLUSH QSHIFT [facility] Last Admin: 04/16/24 09:35 Dose: 3 ml Documented By: MICHELLE Tramadol HCl (Tramadol Hcl 50 Mg Tablet) 50 mg G-TUBE BID PRN PRN Reason: Pain (Scale Score 7-10) Last Admin: 04/16/24 09:01 Dose: 50 mg Documented By: MICHELLE Labs 04/16/24 05:54 04/16/24 05:54 Labs: Laboratory Results - last 24 hr 04/15/24 04/16/24 19:44 05:54 MCV 99.7 H MCH 34.0 H MCHC 34.1 RDW 14.6 Plt Count 184 MPV 12.1 Absolute Nucleated RBC 0.000 Nucleated RBC % (auto) 0.0 Anion Gap 12 Estim Creat Clear Calc 85.8 Estimated GFR > 60 Fasting Glucose 101 H Calcium 8.6 Random Vancomycin 11.3 L Microbiology Microbiology Results: Microbiology 04/14/24 00:48 Blood Culture - Preliminary Blood - Venous No growth after 48 hours. 04/14/24 00:40 Blood Culture - Preliminary Blood - Venous No growth after 48 hours. Assessment and Plan (1) Aspiration into lower respiratory tract: Status: Acute (2) HIV (human immunodeficiency virus infection): Status: Acute (3) Acute and chronic respiratory failure with hypoxia: Status: Acute Plan 59M PMH hiv (viral load undetectable), chronic hypoxic respiratory failure on 2L, hfref, chronic dysphagia s/p gtube presented with sob and cough sepsis due to aspiration pneumonia recurrent episodes ID appreciated, unlikely Oppurtunistic infection due to undetectable HIV, low CD4 count likely due to chronic illness continue vanc, cefepime 3-5 days (can dc vanc if mrsa screen negative, but has been positive recently) Change tube feed to day time only to reduce risk of aspiration keep head elevated follow Vancomycin trough chronic hypoxic respiraotry failure due to chronic aspiration on baseline o2 hiv continue haart hfref on enamel drier side, monitor chronic dysphagia continue gtube feeds full code dvt prophylaxis - lovenox reason for continued hospitalization: iv abx plan for 3-5 days Quality Stroke Does the patient have a stroke diagnosis?: No VTE Prior VTE?: No VTE Risk Level:: Medical - moderate - high VTE Device Contraindication: N/A - Device Ordered VTE Drug Contraindication: N/A - Med Ordered
[2024-04-16] MEDS: Albuterol/Iprat 2.5/0.5MG 3 ML AMPUL.NEB INHALE ×2 (15:24→19:32)
[2024-04-16 15:26] VITALS: PULSE 67; RESP 15; O2SAT 96
[2024-04-16 15:36] VITALS: BP 125/74; PULSE 67; RESP 18; TEMP 36.6; O2SAT 95
[2024-04-16 19:33] VITALS: PULSE 60; RESP 18; O2SAT 97
[2024-04-16 19:36] VITALS: BP 130/79; PULSE 61; RESP 18; TEMP 36.8; O2SAT 96
--- NOTE | 2024-04-16 19:47 | PC.NURSE ---
Clarified tube feed order with Dr. Abel. Tube feed to start from current rate @65cc/hr. Increased by to 75cc/hr @ 1630. To increase by 10cc/her q4h until 2300. Tube feedings to stop overnight from 3556-5001. Upon resuming @ 0700, start @ max rate of 100cc/hr. Reported to uncoming nurse Suki.
[2024-04-16 20:20] LABS: Vancomycin Random 10.8 mcg/mL (15-20)
--- NOTE | 2024-04-16 20:28 | HE.PHANOTE ---
Re: [place] Renal function is improving. Trough returned at 10.8. Dose increased to 1,250mg q12h with predicted AUC 593, and predicted trough 16.4.
[2024-04-16] MEDS: diphenhydrAMINE HCL 25 MG CAPSULE 50 MG G-TUBE (23:07)
[2024-04-16] MEDS: Mirtazapine 30 MG TABLET 60 MG G-TUBE (23:08)
[2024-04-16] MEDS: Melatonin 3 MG TABLET 6 MG G-TUBE (23:08)
[2024-04-16] MEDS: risperiDONE 3 MG TABLET G-TUBE (23:08)
[2024-04-16] MEDS: vancomycin HCL 1,250 MG in 0.9 % Sodium Chloride 250 ML 166.67 MG IV (23:37)
[2024-04-17] VITALS: BP 130/80; PULSE 60; RESP 16; TEMP 36.2; O2SAT 93
[2024-04-17] MEDS: cefEPime HCl 2 GM in 0.9 % Sodium Chloride 50 ML IV ×2 (01:11→08:22)
[2024-04-17 02:27] LABS: Glucose, Whole Blood 108 mg/dL (60-115)
[2024-04-17 04:00] VITALS: BP 144/85; PULSE 62; RESP 16; TEMP 36.2; O2SAT 97
[2024-04-17 06:21] LABS: Hematocrit 39.9 % (42.0-52.0); Hemoglobin 13.3 g/dl (14.0-18.0); Mean Corpuscular HGB Conc 33.3 g/dl (31.0-36.0); Mean Corpuscular Hemoglobin 33.7 pg (27.0-33.0); Platelet Count 201 X10*3/uL (160-400); Red Blood Count 3.95 X10*6/uL (4.60-5.80); Red Cell Distribution Width 14.2 % (11.0-16.0); White Blood Count 5.9 X10*3/uL (4.8-10.8)
[2024-04-17] MEDS: Omeprazole/Na Bicarb Oral Susp 20 MG/10 ML UD Cup 10 MG G-TUBE (06:23)
[2024-04-17 07:01] LABS: Anion Gap 13 (12-20); Blood Urea Nitrogen 13 mg/dL (9-16); Carbon Dioxide 21 mmol/L (22-29); Chloride 110 mmol/L (96-108); Creatinine Clr Calc Pharmacy 85.8; Estimated Glomerular Filt Rate > 60; Glucose Random 87 mg/dL (60-115); Potassium 3.9 mmol/L (3.3-5.1); Sodium 140 mmol/L (135-145)
[2024-04-17 07:23] VITALS: BP 119/83; PULSE 66; RESP 14; TEMP 36; O2SAT 96
[2024-04-17] MEDS: Albuterol/Iprat 2.5/0.5MG 3 ML AMPUL.NEB INHALE (08:04)
[2024-04-17 08:05] VITALS: PULSE 66; RESP 14
[2024-04-17] MEDS: Enoxaparin Sodium 40 MG/0.4 ML SYRINGE SUBCUT (08:21)
[2024-04-17] MEDS: Fluconazole 100 MG TABLET G-TUBE (08:22)
[2024-04-17] MEDS: Gabapentin 600 MG TABLET G-TUBE (08:22)
[2024-04-17] MEDS: clonazePAM 1 MG TABLET G-TUBE (08:22)
[2024-04-17] MEDS: Megestrol Acetate 400 MG/10 ML ORAL.SUSP 625 MG PO (08:22)
[2024-04-17] MEDS: 0.9 % Sodium Chloride Flush 3 ML SYRINGE IVFLUSH (08:33)
[2024-04-17] MEDS: Bictegrav/Emtricit/Tenofov Ala TABLET 1 TAB PO (09:27)
[2024-04-17] MEDS: Acetaminophen 325 MG TABLET 650 MG PO (09:27)
[2024-04-17] MEDS: vancomycin HCL 1,250 MG in 0.9 % Sodium Chloride 250 ML 166.66 MG IV (09:27)
[2024-04-17] MEDS: traMADoL HCL 50 MG TABLET G-TUBE (10:35)
--- NOTE | 2024-04-17 10:42 | MHC.CM.PN ---
Per MD rounds patient medically cleared for dc home w/ resump of services including: [facility], [facility] for SN and [facility] for tube feed/supplies. [facility] will provide transport home. RN aware.
--- NOTE | 2024-04-17 12:36 | P.DS_ITS ---
DS: Providers Provider Date of Service: 04/17/24 Date of admission: 04/14/24 08:49 Primary care physician: Terese Iverson MD Consults: 04/14/24 08:51 Consult to Infectious Diseases Routine Consulting Provider: [facility] Reason for consultation: aspiration pneumonia, CD4 count below 200, ? pcp coverage DS: Diagnosis Discharge Diagnosis (1) Aspiration into lower respiratory tract: Status: Acute (2) HIV (human immunodeficiency virus infection): Status: Acute (3) Acute and chronic respiratory failure with hypoxia: Status: Acute (4) On tube feeding diet: Status: Acute DS: Summary Hospital Course Hospital Course: Admission note HPI The patient is a 59-year-old male with a past medical history of chronic respiratory failure with hypoxia on home oxygen secondary to asthma failure, pleural effusion status post decortication, HFrEF with EF of 40-45%, HIV on heart with last CD4 count below 200 in March 2024, chronic dysphagia status post G-tube insertion, hepatitis-C, mood disorder who presented to the emergency room with reports of increased shortness of breath and cough which began on the day prior to admission. The patient is seen and examined in the emergency room. He is currently ill appearing and responds in short sentences. He does not appear to be in any respiratory distress. He indicates that his symptoms began on the evening prior to admission and primarily consisted of shortness of breath. He denies any fevers. He reports intermittent nonproductive coughing. He reports some right- sided chest pain. In the emergency room the patient initially was found to be in respiratory distress with rates in the mid 30s. Imaging studies indicated right-sided findings consisted with aspiration. He was treated with IV steroids and updrafts along with IV Zosyn plus Bactrim. He has been given 1 L of fluids and now will be admitted for further care. Hospital course The patient was admitted for sepsis due to aspiration pneumonia as confirmed by chest imaging which is recurrent episodes and could be related to his tube feed as he confirmed lowering his head when he goes to sleep He was evaluated by ID who thought it is unlikely Oppurtunistic infection due to undetectable HIV and his low CD4 count likely due to chronic illness suggesting Vancomycin and Cefepime which he received for 3 days with good recovery as he was weaned down O2 and blood cultures remained negative. Upon discussing with tablet making machine operator helper we changed tube feed to day time only and to give him break at night to reduce risk of aspiration while keeping head elevated. Change tube feed to day time only for 12 or 16 hours at rate of 100cc\hr if 16 hours or rate of 130cc\hr if for 12 hours only with frequent checks for residual every 4 hours and to give 120 ml water flushes every 6 hours. To be discharged home with VNA and NEGATIVE TURNER care at home. Discharge plan Continue antibiotics as prescribed Cough medicine for the next 3 days then as needed Hold Amlodipine for low blood pressure readings. Monitor at home and discuss with PCP the need to restart it. Aspiration precautions Change tube feed to day time only for 12 or 16 hours at rate of 100cc\hr if 16 hours or rate of 130cc\hr if for 12 hours only. Time Attestation Discharge Coordination Time (in mins): 45 Quality: Safe Use of Opioids Does Pt have an Active Cancer Diagnosis on the Problem List?: No Quality: Stroke Does the patient have a stroke diagnosis?: No Physical Exam Vital Signs: Vital Signs: Last Vital Signs Temp 96.8 F 04/17/24 07:23 Pulse 66 04/17/24 08:05 Resp 14 04/17/24 08:05 BP 119/83 04/17/24 07:23 Pulse Ox 96 04/17/24 07:23 O2 Del Method Room Air 04/17/24 07:23 O2 Flow Rate 2 04/17/24 04:00 Oxygen Flow Rate 3 04/14/24 00:02 BMI result Body Mass Index 20.4 Const: Other: Constitutional : Awake, interactive, looks frail and weak, not in distress Neck : Normal inspection, Supple Cardiovascular : RRR, no JVP, no lower extremity edema Respiratory : good bilateral air entry, RLL basal fine crackles, no wheezes Gastrointestinal: soft, lax, Normal bowel sounds, G-tube in place Non tender Skin : Warm, Dry Neurological : Alert & oriented to self, No focal deficit DS: Data Data Completed and Pending Completed studies during hospitalization [Text1]: Procedures Drainage of Left Lung with Drainage Device, Open Approach (12/30/22) Drainage of Spinal Canal, Percutaneous Approach, Diagnostic (03/15/24) Excision of Esophagogastric Junction, Via Natural or Artificial Opening Endoscopic, Diagnostic (07/16/23) Excision of Stomach, Pylorus, Via Natural or Artificial Opening Endoscopic, Diagnostic (07/16/23) Excision of Upper Esophagus, Via Natural or Artificial Opening Endoscopic, Diagnostic (07/16/23) Fluoroscopy of Spinal Cord (03/15/24) Insertion of Endotracheal Airway into Trachea, Via Natural or Artificial Opening (12/30/22) Insertion of Feeding Device into Stomach, Percutaneous Approach (07/27/23) Insertion of Infusion Device into Superior Vena Cava, Percutaneous Approach (12/30/22) Insertion of Infusion Device into Upper Vein, Percutaneous Approach (07/16/23) Introduction of Nutritional Substance into Upper GI, Via Natural or Artificial Opening (07/27/23) Introduction of Vasopressor into Central Vein, Percutaneous Approach (12/30/22) Release Left Lung, Open Approach (12/30/22) Reposition Left Tibia with Internal Fixation Device, Open Approach (02/12/22) Respiratory Ventilation, 24-96 Consecutive Hours (12/30/22) Ultrasonography of Superior Vena Cava, Guidance (12/30/22) Labs on day of discharge: Laboratory Results - last 24 hr 04/16/24 04/17/24 04/17/24 19:55 02:23 05:28 WBC 5.9 RBC 3.95 L Hgb 13.3 L Hct 39.9 L MCV 101.0 H MCH 33.7 H MCHC 33.3 RDW 14.2 Plt Count 201 MPV 12.0 Absolute Nucleated RBC 0.000 Nucleated RBC % (auto) 0.0 Sodium 140 Potassium 3.9 Chloride 110 H Carbon Dioxide 21 L Anion Gap 13 BUN 13 Creatinine 0.74 Estim Creat Clear Calc 85.8 Estimated GFR > 60 POC Glucose 108 Random Glucose 87 Calcium 9.0 Random Vancomycin 10.8 L Preliminary micro results at discharge 04/14/24 00:48 Blood Culture - Preliminary Blood - Venous No growth after 48 hours. 04/14/24 00:40 Blood Culture - Preliminary Blood - Venous No growth after 48 hours. Imaging Chest x-ray: Radiologist's impression: ITS Impressions Chest X-Ray 04/14/24 01:03 IMPRESSION: Minimal left basilar atelectasis without additional acute findings. Chest CT 04/14/24 04:35 IMPRESSION: 1. Limited detailed evaluation of the lungs due to respiratory motion artifact. Semisolid material is present in the lower trachea extending into the right mainstem bronchus and bronchus intermedius. Additional debris is suspected in the left mainstem bronchus. Overall, this could be due to aspiration. 2. Streaky airspace opacities at the left lung base, most consistent with atelectasis. Component of adjacent bronchiolitis cannot be excluded in the setting of motion artifact. 3. Mild patchy ground glass opacity posteriorly in the right upper lobe, suspicious for mild infectious/inflammatory change. Regions of bronchiolitis in the right upper and lower lobes. 4. Borderline enlarged subcarinal lymph node, which may be reactive. 5. Coronary artery calcifications. Correlation with cardiac risk factors is recommended. Discharge Plan Discharge Anticipated Discharge Date/Time: 04/17/24 12:27 Patient Disposition: Home Health Service Discharge Diagnosis: Aspiration pneumonia Referrals: Terese Guy MD [Primary Care Provider] - 1 Week Discharge Medications: New dextromethorphan-guaifenesin 10-100 mg/5 mL Syrup 10 ml G-tube Q6H Qty: 237 0RF doxycycline monohydrate 100 mg tablet 100 mg feeding tube BID Qty: 14 0RF cefuroxime axetil 500 mg tablet 500 mg PO BID Qty: 14 0RF Continued gabapentin 600 mg tablet 600 mg feeding tube TID Qty: 20 0RF mirtazapine 30 mg tablet 60 mg feeding tube BEDTIME Qty: 20 0RF Biktarvy 50-200-25 mg tablet 1 tab PO DAILY Qty: 14 0RF Rx Instructions: Ok to crush and give via feeding tube risperidone 3 mg tablet 3 mg feeding tube BEDTIME diphenhydramine HCl [Banophen] 25 mg tablet 50 mg feeding tube BEDTIME ferrous gluconate 324 mg (38 mg iron) tablet 324 mg feeding tube BID calcium carbonate-vitamin D3 600 mg-20 mcg (800 unit) tablet 1 tab feeding tube BID@1200,1800 omeprazole 10 mg Capsule,Delayed Release(Dr/Ec) 10 mg feeding tube DAILY@0630 albuterol sulfate [Ventolin HFA] 90 mcg/actuation HFA aerosol inhaler 2 puff inhalation Q6H PRN (Reason: wheezing) budesonide 90 mcg/actuation aerosol powdr breath activated 2 inh inhalation BID Qty: 1 2RF clonazepam 1 mg tablet 1 mg feeding tube DAILY Qty: 10 0RF tramadol 50 mg tablet 50 mg feeding tube BID PRN (Reason: Pain (Scale Score 7-10)) Qty: 20 0RF fluconazole 10 mg/mL suspension for reconstitution 100 mg feeding tube DAILY megestrol 625 mg/5 mL (125 mg/mL) suspension 5 ml feeding tube DAILY Held amlodipine 5 mg tablet 5 mg PO DAILY Hold Instructions: Hold for 1 week and monitor blood pressure readings at home. Discuss with PCP the need to restart it. Discharge Orders: Discharge Order (Routine); Ordered 04/17/24 Ordered By: Long Abel Diet: Advance to usual diet Activity on Discharge: As tolerated Stand Alone Forms: Patient Portal Discharge page Print Language: Estonian Care Plan Goals: Read below Health Concerns: Read below Plan of Treatment: Read below Assessment: Continue antibiotics as prescribed Cough medicine for the next 3 days then as needed Hold Amlodipine for low blood pressure readings. Monitor at home and discuss with PCP the need to restart it. Aspiration precautions Change tube feed to day time only for 12 or 16 hours at rate of 100cc\hr if 16 hours or rate of 130cc\hr if for 12 hours only.
== END 2024-04-17 13:56 | disposition home health service (06) | DRG 974 ==
LOC: HO.ED 04-14 05:34 → HO.EDOVER 04-14 08:59 → HO.S3 04-14 19:47
PROVIDERS: Internal Medicine; Admitting Provider Family Medicine; Emergency Provider Internal Medicine; PCP Internal Medicine; Visit Provider Student in an Organized Health Care Education/Training Program
DX: A41.9 Sepsis, unspecified organism (principal); J69.0 Pneumonitis due to inhalation of food and vomit; B20 Human immunodeficiency virus [HIV] disease; J96.11 Chronic respiratory failure with hypoxia; I50.22 Chronic systolic (congestive) heart failure; F39 Unspecified mood [affective] disorder; I11.0 Hypertensive heart disease with heart failure; R13.10 Dysphagia, unspecified; Z20.822 Contact with and (suspected) exposure to COVID-19; Z93.1 Gastrostomy status; Z99.81 Dependence on supplemental oxygen; Z87.891 Personal history of nicotine dependence; Z79.899 Other long term (current) drug therapy
CPT/HCPCS: 0241U; 36415; 71045; 71250; 80048; 80053; 80202; 82947; 83605; 83735; 83880; 84484; 85007; 85025; 85027; 87040; 93005; 94640; 99285; J0692; J1650; J2543; J2919; J3370; J3371

== ENCOUNTER → 2024-04-13 23:51 | Outpatient (BNV) | payer OTHER, SELFPAY | PROVIDERS: Admitting Provider Family Medicine; Emergency Provider Internal Medicine; Visit Provider Internal Medicine Cardiovascular Disease | DX: R94.31 Abnormal electrocardiogram [ECG] [EKG] (principal) | CPT/HCPCS: 93010 ==

== ENCOUNTER → 2024-04-14 08:49 | Outpatient (BNV) | payer OTHER, SELFPAY | PROVIDERS: Admitting Provider Family Medicine; Emergency Provider Internal Medicine; Visit Provider Internal Medicine | DX: T17.800A Unspecified foreign body in other parts of respiratory tract causing asphyxiation, initial encounter (principal); Z21 Asymptomatic human immunodeficiency virus [HIV] infection status | CPT/HCPCS: 99222 ==

== ENCOUNTER → 2024-04-14 08:49 | Outpatient (BNV) | payer OTHER, SELFPAY | PROVIDERS: Admitting Provider Family Medicine; Emergency Provider Internal Medicine; Visit Provider Family Medicine | DX: A41.9 Sepsis, unspecified organism (principal); J69.0 Pneumonitis due to inhalation of food and vomit; Z21 Asymptomatic human immunodeficiency virus [HIV] infection status | CPT/HCPCS: 99223; 99233; 99239 ==

== ENCOUNTER 2024-05-07 03:34 | Emergency (ER) | payer OTHER, SELFPAY ==
[2024-05-07] VITALS (10 sets, daily range): BP systolic 103–135; BP diastolic 75–92; PULSE 61–92; RESP 12–24; TEMP 36.4–37.3; O2SAT 92–99; BMI 18.9
--- NOTE | 2024-05-07 | ECG_ITS ---
Test Reason : chest pain Blood Pressure : / mmHG Vent. Rate : 089 BPM Atrial Rate : 089 BPM P-R Int : 142 ms QRS Dur : 090 ms QT Int : 368 ms P-R-T Axes : 079 081 049 degrees QTc Int : 447 ms Normal sinus rhythm Incomplete right bundle branch block Abnormal ECG When compared with ECG of 13-APR-2024 23:55, Nonspecific ST and T wave abnormality is no longer Present Referred By: Generic ED Physician Electronically Signed By:RUBY ISLAS
--- NOTE | 2024-05-07 | ECG_ITS ---
Test Reason : CHEST PAIN Blood Pressure : / mmHG Vent. Rate : 063 BPM Atrial Rate : 063 BPM P-R Int : 144 ms QRS Dur : 092 ms QT Int : 416 ms P-R-T Axes : 077 075 053 degrees QTc Int : 425 ms Normal sinus rhythm Incomplete right bundle branch block Abnormal ECG When compared with ECG of 07-MAY-2024 03:39, No significant change was found Referred By: Lavon Mukherjee Electronically Signed By:RUBY ISLAS
--- NOTE | ~2024-05-07 | CT_ITS ---
EXAMINATION: CT ANGIOGRAM CHEST CLINICAL INFORMATION: Pleuritic chest pain COMPARISON: CT chest 04/14/2024 TECHNIQUE: Multiple axial images were obtained through the chest after the administration of 70 mL of Omnipaque 350 intravenous contrast. Extensive vascular post-processing including two-dimensional and three-dimensional reformatted images were created and reviewed on an independent workstation. This CT examination was performed using dose optimization techniques as appropriate, variously including the following: *Automated exposure control *Adjustment of mA and/or kV according to patient size (this includes techniques or standardized protocols for targeted exams where dose is matched to indication/reason for exam; i.e. extremities or head) *Use of iterative reconstruction technique DLP: 256 : mGy-cm FINDINGS: Extensive motion artifact markedly limits evaluation particularly in the lower lobes. Pulmonary arteries: There is no central, lobar or segmental pulmonary embolism. Extensive motion artifact excludes evaluation of the subsegmental pulmonary arteries. Lungs: Limited evaluation. Patchy opacity in the right lung base may reflect atelectasis versus focal infiltrate. Additional areas of atelectasis in the dependent left lung. Mediastinum: Heart is mildly enlarged. No pericardial effusion. No bulky lymphadenopathy. Axilla: No axillary lymphadenopathy. Pleura: No pleural effusion or pneumothorax. Upper abdomen: Unremarkable. Osseous structures: Chronic height loss in the T7 vertebral body. CT/CT angio chest PE protocol IMPRESSION: 1. Extensive motion artifact markedly limits evaluation particularly in the lower lobes. No central, lobar or segmental pulmonary embolism. 2. Patchy opacity in the right lung base may reflect atelectasis versus focal infiltrate. Additional areas of atelectasis in the dependent left lung. Fleischner guidelines were followed. VTE: Indeterminate Electronically signed by: Pepe Sanford MD 05/07/2024 05:29 AM EDT
--- NOTE | 2024-05-07 04:04 | ED_ITS ---
HPI - Chest Pain General Chief Complaint: Chest Pain Stated Complaint: chest tightness, SOB x2days Time Seen by Provider: 05/07/24 03:47 Source: patient and EMS Mode of arrival: EMS Limitations: other (poor historian) History of Present Illness ED Provider: MAINOR WHITFIELD narrative: 59 yo male with PMH of chronic respiratory failure and recurrent aspiration pneumonia on 2L home O2, asthma, hx of pleural effusion in past with decortication, CHF EF 40-45%, HIV and CD4 count below 200, dysphagia G tube, hep D, mood disorder, chronic FTT just DC here for another episode of aspiration pneumonia and respiratory failure on 04/17 with ceftin and doxy. He comes back tonight with c/o 2-3 days of chest tightness and not feeling well he called 911 himself and took his O2 off EMS found him 87% on RA as he could not put the O2 back on. He notes the pain is sharp and comes and goes. He has chronic junky cough. His family told EMS he was never better. I spoke to him at length that every time he comes in here he is more ill and that he is not going to get better. We talked about him suffering at home and he states he is. He wants to talk to hospice today. MD complaint: chest pain Onset (ago): day(s) (3) Timing of current episode: episodic Prior episodes: Yes Onset: during rest Pain location: substernal Pain radiation: none Severity: moderate Quality: sharp Relieving factors: nothing Exacerbating factors: nothing Context: recent illness Associated symptoms: dyspnea Treatment prior to arrival: none Related Data Home Medications ?Medication ?Instructions ?Recorded ?Confirmed calcium carbonate 600 mg-vitamin 1 tab feeding tube BID@1200,1800 12/16/23 04/14/24 D3 20 mcg (800 unit) tablet diphenhydramine HCl 25 mg tablet 50 mg feeding tube BEDTIME 12/16/23 04/14/24 (Banophen) ferrous gluconate 324 mg (38 mg 324 mg feeding tube BID 12/16/23 04/14/24 iron) tablet risperidone 3 mg tablet 3 mg feeding tube BEDTIME 12/16/23 04/14/24 omeprazole 10 mg capsule,delayed 10 mg feeding tube DAILY@0630 01/10/24 04/14/24 release albuterol sulfate 90 mcg/actuation 2 puff inhalation Q6H PRN wheezing 03/07/24 04/14/24 aerosol inhaler (Ventolin HFA) amlodipine 5 mg tablet 5 mg PO DAILY 04/14/24 04/14/24 fluconazole 10 mg/mL oral 100 mg feeding tube DAILY 04/14/24 04/14/24 suspension megestrol 625 mg/5 mL (125 mg/mL) 5 ml feeding tube DAILY 04/14/24 04/14/24 oral suspension Previous Rx's ?Medication ?Instructions ?Recorded bictegravir 50 mg-emtricitabine 1 tab PO DAILY #14 tabs 08/02/23 200 mg-tenofovir alafenam 25 mg tablet (Biktarvy) gabapentin 600 mg tablet 600 mg feeding tube TID #20 tabs 08/02/23 mirtazapine 30 mg tablet 60 mg (2 x 30 mg) feeding tube 08/02/23 BEDTIME #20 tabs budesonide 90 mcg/actuation breath 2 inh inhalation BID #1 ea 03/20/24 activated powder inhaler clonazepam 1 mg tablet 1 mg feeding tube DAILY #10 tabs 03/20/24 tramadol 50 mg tablet 50 mg feeding tube BID PRN Pain 03/20/24 (Scale Score 7-10) #20 tabs cefuroxime axetil 500 mg tablet 500 mg PO BID #14 tabs 04/17/24 dextromethorphan-guaifenesin 10 10 ml G-tube Q6H Cough #237 mL 04/17/24 mg-100 mg/5 mL oral syrup doxycycline monohydrate 100 mg 100 mg feeding tube BID #14 tabs 04/17/24 tablet Allergies Allergy/AdvReac Type Severity Reaction Status Date / Time Seasonal Allergies Allergy Intermediate Eye Verified 05/07/24 03:46 Drainage codeine Allergy Mild Rash Verified 05/07/24 03:46 [From Tylenol-Codeine #3] levofloxacin [From Levaquin] Allergy Mild Rash Verified 05/07/24 03:46 metoclopramide [From Reglan] Allergy Mild Rash Verified 05/07/24 03:46 acetaminophen Allergy Unknown Rash Verified 05/07/24 03:46 [Tylenol-Codeine #3] Penicillins [PENICILLINS] Allergy Unknown Rash Verified 05/07/24 03:46 ibuprofen [From Motrin] AdvReac Unknown Reflux Verified 05/07/24 03:46 Review of Systems 2 Review of Systems: Constitutional : No Fever, No Chills, pos fatigue ENT/Mouth : No sore throat, No Rhinorrhea, No Swallowing Difficulty Eyes: No Eye Pain, No Swelling, No Redness Cardiovascular : pos Chest Pain, positive SOB, No Orthopnea, no Edema Respiratory : pos Cough, No Sputum, No Wheezing, positive dyspnea Gastrointestinal : No Nausea, No Vomiting, No Diarrhea, No abdominal Pain, No Hematochezia, No Melena Genitourinary : No Dysuria, No Urinary Frequency, No Hematuria Musculoskeletal : No joint pain, No Myalgias Skin : No Skin Lesions, No rash Neuro : pos Weakness, No Numbness, No Dizziness, No Headache All other systems reviewed and are negative PMFSH Past Medical History Attestation statement: The following information was validated with the patient. 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 Housing: Apartment Do you presently have visiting nurse or other home services: Yes Alcohol intake: never Patient Tobacco Use Status: Former Tobacco user Tobacco use type: Cigarette Smoked in Last 30 Days: No e-Cigarette/Vaping Use: Never Used Second Hand Smoke Exposure: No Use of substances other than those prescribed or required for medical reasons: No Substance Use Type: Crack/Cocaine Advance Directives: Yes Advance Directives on File: Yes Advance Directives Date on File: 04/25/21 Do you have a plan to hurt others: No Plan service: No Current occupational status: disabled Physical Exam 2 Vital Signs: Vital Signs: Last Vital Signs Temp 98.8 F 05/07/24 04:00 Pulse 82 05/07/24 04:00 Resp 18 05/07/24 04:00 BP 135/85 05/07/24 04:00 Pulse Ox 95 05/07/24 04:00 O2 Del Method Nasal Cannula 05/07/24 04:00 O2 Flow Rate 2 05/07/24 04:00 Oxygen Flow Rate 2 05/07/24 03:43 BMI result Body Mass Index 18.9 Appearance: Alert. Oriented X3. No acute distress. Frail older than stated age, temporal wasting Eyes: Pupils equal, round and reactive to light. ENT: Pharynx very dry MM Neck: Normal inspection. Neck supple. CVS: Normal heart rate and rhythm. Pulses normal. Respiratory: No respiratory distress. Breath sounds R base diminished Abdomen: Soft and nontender. Skin: Skin warm and dry. pale skin color. poor skin turgor. Extremities: No lower extremity edema. No calf ttp Neuro: Oriented X 3. No motor deficit. No sensory deficit. Medications Administered Discontinued Medications Generic Name Dose Route Start Last Admin Trade Name Freq PRN Reason Stop Dose Admin Iohexol 70 ml 05/07/24 04:39 05/07/24 04:47 Iohexol 350 Mg/Ml 100 Ml Infus..Btl IV 05/07/24 04:40 70 ml ONCE ONE Administration Morphine Sulfate 5 mg 05/07/24 04:02 05/07/24 04:27 Morphine Sulfate Oral Carol 10 Mg/5 Ml Solution PO 05/07/24 04:03 5 mg ONCE ONE Administration Medical Decision Making Medical Decision Making MDM Narrative: 59 yo male with PMH of chronic respiratory failure and recurrent aspiration pneumonia on 2L home O2, asthma, hx of pleural effusion in past with decortication, CHF EF 40-45%, HIV and CD4 count below 200, dysphagia G tube, hep D, mood disorder, chronic FTT just DC here with c/o sharp chest pain and dyspnea at this time will obtain EKG, basic labs, CTA for PE vs pneumonia he finally agrees to talk to hospice today which is a big step for him. He agrees he is suffering and cannot live like this at home. I am concerned with his report that he had to be the one to call 911 and take his oxygen off to do it. Will do work up and then try to keep in ED to refer to hospice. Differential Diagnosis Differential Diagnoses: The differential diagnosis associated with the presentation includes aspiration pneumonia, FTT, VTE, atypical chest pain Admission/Observation Consideration of admission/observation: Escalation of care including admission/observation considered small bump in LFTs does not report abdominal pain small opacity RLL no wbc count likely chronic aspiration at this time will place in physician observation at 540am and refer to PT/CM for hospice consult just completed antibiotics would hold off more at this time given lack of fevers and wbc count Lab Data MDM Lab Attestation statement: I reviewed the patient's lab results. 05/07/24 04:06 05/07/24 04:06 Labs: Lab Results 05/07/24 Range/Units 04:06 WBC 8.6 (4.8-10.8) X10*3/uL RBC 4.36 L (4.60-5.80) X10*6/uL Hgb 14.9 (14.0-18.0) g/dl Hct 42.9 (42.0-52.0) % MCV 98.4 H (80.0-98.0) fL MCH 34.2 H (27.0-33.0) pg MCHC 34.7 (31.0-36.0) g/dl RDW 14.5 (11.0-16.0) % Plt Count 221 (160-400) X10*3/uL MPV 11.4 (9.4-12.4) fL Immature Gran % (Auto) 0.7 H (0.0-0.4) % Neut % (Auto) 67.9 (45-73) % Lymph % (Auto) 21.9 (20-40) % [place] % (Auto) 8.6 (2-11) % Eos % (Auto) 0.7 (0-4) % Baso % (Auto) 0.2 (0-2) % Lymph # (Auto) 1.9 (1.2-4.9) X10*3/uL [place] # (Auto) 0.7 (0.1-1.2) X10*3/uL Eos # (Auto) 0.1 (0.0-0.4) X10*3/uL Baso # (Auto) 0.0 (0.0-0.2) X10*3/uL Abs Immat Gran (auto) 0.06 H (0.00-0.03) X10*3/uL Absolute Neuts (auto) 5.8 (2.0-8.3) x10*3/uL Absolute Nucleated RBC 0.000 (0.0-0.012) X10*3/uL Nucleated RBC % (auto) 0.0 (0.0-0.2) /100WBC PT 11.9 (11.1-13.3) SEC INR 1.0 (0.9-1.1) Sodium 143 (135-145) mmol/L Potassium 4.0 (3.3-5.1) mmol/L Chloride 108 (96-108) mmol/L Carbon Dioxide 24 (22-29) mmol/L Anion Gap 15 (12-20) BUN 14 (9-16) mg/dL Creatinine 1.17 (0.5-1.4) mg/dL Estim Creat Clear Calc 51.8 Estimated GFR > 60 Random Glucose 108 (60-115) mg/dL Calcium 10.1 D (8.4-10.2) mg/dL Magnesium 2.3 (1.6-2.6) mg/dL Total Bilirubin 0.5 (0.0-1.0) mg/dL Direct Bilirubin 0.2 (0.0-0.5) mg/dL AST 57 H (5-37) U/L ALT 168 H (0-40) U/L Alkaline Phosphatase 42 (39-117) U/L Troponin I High Sens 3.0 (<3.5-35.0) ng/L Total Protein 7.5 (6.5-8.0) g/dL Albumin 4.1 (3.5-5.0) g/dL Lipase 7 L (8-78) U/L Independent Interpretation I performed an independent interpretation of an: EKG and CT Scan (no PE possible atelectasis) Interpretation: Rate: 89 Rhythm: NSR [place]:normal Normal P waves. Normal JONI. incomplete RBBB ST T wave : inverted t waves V1, no ANA qTC: 447 prior studies: no acute ischemia The study has been interpreted contemporaneously by me. . Radiology Impression Discussion of test interpretation with radiology: I have reviewed the radiologist's reading. Independent Historian Clinical information obtained from an independent historian. History obtained from or confirmed by: EMS External Record Review External record reviewed: Inpatient record Discharge Plan Discharge Clinical Impression: Atypical chest pain, Adult failure to thrive Patient Disposition: Still a Patient Instructions: Chest Pain (ED), Failure to Thrive in Older Adults (ED) Prescriptions: No Action gabapentin 600 mg tablet 600 mg feeding tube TID Qty: 20 0RF mirtazapine 30 mg tablet 60 mg feeding tube BEDTIME Qty: 20 0RF Biktarvy 50-200-25 mg tablet 1 tab PO DAILY Qty: 14 0RF Rx Instructions: Ok to crush and give via feeding tube risperidone 3 mg tablet 3 mg feeding tube BEDTIME diphenhydramine HCl [Banophen] 25 mg tablet 50 mg feeding tube BEDTIME ferrous gluconate 324 mg (38 mg iron) tablet 324 mg feeding tube BID calcium carbonate-vitamin D3 600 mg-20 mcg (800 unit) tablet 1 tab feeding tube BID@1200,1800 omeprazole 10 mg Capsule,Delayed Release(Dr/Ec) 10 mg feeding tube DAILY@0630 albuterol sulfate [Ventolin HFA] 90 mcg/actuation HFA aerosol inhaler 2 puff inhalation Q6H PRN (Reason: wheezing) budesonide 90 mcg/actuation aerosol powdr breath activated 2 inh inhalation BID Qty: 1 2RF clonazepam 1 mg tablet 1 mg feeding tube DAILY Qty: 10 0RF tramadol 50 mg tablet 50 mg feeding tube BID PRN (Reason: Pain (Scale Score 7-10)) Qty: 20 0RF amlodipine 5 mg tablet 5 mg PO DAILY fluconazole 10 mg/mL suspension for reconstitution 100 mg feeding tube DAILY megestrol 625 mg/5 mL (125 mg/mL) suspension 5 ml feeding tube DAILY dextromethorphan-guaifenesin 10-100 mg/5 mL Syrup 10 ml G-tube Q6H Qty: 237 0RF doxycycline monohydrate 100 mg tablet 100 mg feeding tube BID Qty: 14 0RF cefuroxime axetil 500 mg tablet 500 mg PO BID Qty: 14 0RF Print Language: Polish
[2024-05-07 04:11] LABS: MANUAL DIFF FLAG NO
[2024-05-07 04:12] LABS: Basophils Percent Auto 0.2 % (0-2); Eosinophils Absolute Auto 0.1 X10*3/uL (0.0-0.4); Eosinophils Percent Auto 0.7 % (0-4); Hematocrit 42.9 % (42.0-52.0); Hemoglobin 14.9 g/dl (14.0-18.0); Imm Gran Abs Auto 0.06 X10*3/uL (0.00-0.03); Imm Gran Pct Auto 0.7 % (0.0-0.4); Lymphocytes Absolute Auto 1.9 X10*3/uL (1.2-4.9); Lymphocytes Percent Auto 21.9 % (20-40); Mean Corpuscular HGB Conc 34.7 g/dl (31.0-36.0); Mean Corpuscular Hemoglobin 34.2 pg (27.0-33.0); Mean Corpuscular Volume 98.4 fL (80.0-98.0); Mean Platelet Volume 11.4 fL (9.4-12.4); Monocytes Absolute Auto 0.7 X10*3/uL (0.1-1.2); Monocytes Percent Auto 8.6 % (2-11); Neutrophils Absolute Auto 5.8 x10*3/uL (2.0-8.3); Neutrophils Percent Auto 67.9 % (45-73); Platelet Count 221 X10*3/uL (160-400); Red Blood Count 4.36 X10*6/uL (4.60-5.80); Red Cell Distribution Width 14.5 % (11.0-16.0); White Blood Count 8.6 X10*3/uL (4.8-10.8)
[2024-05-07 04:17] LABS: Prothrombin Time 11.9 SEC (11.1-13.3)
[2024-05-07 04:25] LABS: Alanine Aminotransferase 168 U/L (0-40); Albumin Level 4.1 g/dL (3.5-5.0); Alkaline Phosphatase 42 U/L (39-117); Anion Gap 15 (12-20); Aspartate Amino Transferase 57 U/L (5-37); Bilirubin Direct 0.2 mg/dL (0.0-0.5); Bilirubin Total 0.5 mg/dL (0.0-1.0); Blood Urea Nitrogen 14 mg/dL (9-16); Calcium 10.1 mg/dL (8.4-10.2); Carbon Dioxide 24 mmol/L (22-29); Chloride 108 mmol/L (96-108); Creatinine Clr Calc Pharmacy 51.8; Estimated Glomerular Filt Rate > 60; Glucose Random 108 mg/dL (60-115); Lipase 7 U/L (8-78); Magnesium 2.3 mg/dL (1.6-2.6); Sodium 143 mmol/L (135-145); Total Protein 7.5 g/dL (6.5-8.0)
[2024-05-07] MEDS: Morphine Sulfate Oral Sol 10 MG/5 ML SOLUTION 5 MG PO (04:27)
[2024-05-07] MEDS: iohexoL 350 MG/ML 100 ML INFUS..BTL 70 ML IV (04:47)
[2024-05-07 09:12] LABS: Appearance Urine Cloudy; Color Urine Yellow; Glucose Urine UA Negative (Negative); Leukocyte Esterase Urine Negative (Negative); Nitrite Urine Negative (Negative); PH 7.5 (5.0-9.0); Specific Gravity - Urine >= 1.030 (1.005-1.025); Urine Blood Negative (Negative); Urine Ketones Negative (Negative); Urine Protein Negative (Neg-Trace)
--- NOTE | 2024-05-07 10:20 | MHC.CM.ED ---
Received case management consult overnight from Dr Nagel. Patient came o the ER d/t SOB. Patient has long standing history of HIV and multiple other medical issues including dysphagia with G-tube placement and failure to thrive. Hospice informational meetings have been offered to patient multiple times in the past. Patient has always refused. Patient now agreeable to hospice informational meeting. Patient lives at home with his AUTO STRIPER Good, is active with [facility] for fpc, [facility] for tube feedings and [facility] for oxygen. [facility] referral made for informational meeting. YUE Rees met with patient and director organizational. Patient is agreeable to hospice but wanted Negrita to speak to his AUTO STRIPER, Good. Negrita spoke with Good and she is agreeable to provide hospice care at home and learn how to administer hospice meds. Patient will need DME equipment. [facility] working on securing equipment and will let CM know when equipment will be delivered and patient can be d/c'd home. Continue to monitor for d/c needs.
--- NOTE | 2024-05-07 12:56 | PC.NURSE ---
Pt. c/o CP. Jitendra Mukherjee MD aware. Obtaining EKG
--- NOTE | 2024-05-07 13:00 | MHC.CM.ED ---
Received notification that patient and [facility] agreeable to hospice. Equipment being ordered by [facility]. Recommended hospice med list provided to Dr Mukherjee so prescriptions can be sent to [facility] outpatient pharmacy. [facility] requesting MOLST be completed. Form provided to Dr Mukherjee. Anticipate patient will d/c home with [facility] via BLS tomorrow 05/08. Continue to monitor for d/c needs.
--- NOTE | 2024-05-07 14:27 | MHC.CM.ED ---
TOR completed by Dr Mukherjee and patient. Original given to patient. Copy placed in chart. Patient's COMBINATION MAN will be on-site tomorrow between 10a-11a to transport patient home. Continue to monitor for d/c needs.
[2024-05-07] MEDS: 0.9 % Sodium Chloride 1,000 ML 125 ML IVCONT (14:43)
[2024-05-07] MEDS: Morphine Sulfate 4 MG/ML CARTRIDGE IVPUSH (14:43)
[2024-05-07] MEDS: Morphine Sulfate Oral Sol 10 MG/5 ML SOLUTION G-TUBE ×2 (18:06→22:12)
--- NOTE | 2024-05-07 21:03 | PHA.MEDREC ---
Addendum entered by Federico Floyd RPh 05/07/24 22:21: Med rec was reviewed by [facility]. Original Note: Pharmacy Consult ? Medication Reconciliation Pharmacy has completed the medication reconciliation. Confirmed medications with patient and help of strand buncher fine wire. Patient was able to confirm medications with ease and he was able to confirm he last took his medication at home 05/05/24.
[2024-05-08] MEDS: Morphine Sulfate Oral Sol 10 MG/5 ML SOLUTION G-TUBE ×2 (04:06→09:19)
--- NOTE | 2024-05-08 04:27 | PC.NURSE ---
patient moved to hospital bed for increased comfort
[2024-05-08] MEDS: 0.9 % Sodium Chloride 1,000 ML 125 ML IVCONT ×2 (06:15→07:52)
[2024-05-08 07:04] VITALS: BP 131/77; PULSE 51; RESP 15; O2SAT 97
--- NOTE | 2024-05-08 07:38 | PC.NURSE ---
Resumed care of pt at 0700. STEPHANIE Juarez informed this RN pt will be going home on hospice today around 10-11am. 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 Pt a/ox3, rhonchi heard in all lung bonilla bilaterally, occasional non-productive cough, pt on 2L NC at home and maintaining O2 sat 96-98%, S1 and S2 heard, no c/o CP at this time, abdomen soft and non-tender, no pain on palpation Pt states no pain at this time, he is able to comfortably sleep. NS running at 125ml/hr in 20g IV right AC. This RN updated pt on plan to go home around 10-11am. Call jansen within reach, all needs met at this time.
--- NOTE | 2024-05-08 09:30 | MHC.CM.ED ---
Patient remains in ER. [facility], will be here at 10am to transport patient home. Dr Mukherjee already sent hospice med RX to [facility]. T/W spoke with Tresa at pharmacy. They are filling the RX now and will bring them bedside to patient. [facility] aware. Patient, Monik BROWN and Yun JC aware. Continue to monitor for d/c needs.
[2024-05-08 10:32] VITALS: RESP 16
--- NOTE | 2024-05-08 13:14 | MHC.CM.ED ---
Received notification from [facility] that [facility] not able to provide 24/7 care. Met with patient and federico Rees in regards to discharge planning. Patient is aware [facility] will not be able to provide 24/7 care. Patient is unsure if his brother would be able to help with care at home. Patient has been to [facility] in the past but doesn't have to return. Patient will speak to brother to see if any additional help can be provided at home. T/W will make referrals for any bed availability. Will re-meet with patient and microbiology teacher at 3pm. Patient, Monik BROWN and Kathy JC aware. Continue to monitor for d/c needs.
--- NOTE | 2024-05-08 14:15 | MHC.CM.ED ---
Met with patient and [facility]. 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 Patient is declining hospice at this time. Wants to return home with [facility]. [facility] made aware. Monik BROWN and Kathy JC aware. [facility] will transport patient home. Continue to monitor for d/c needs.
[2024-05-08 14:54] VITALS: BP 121/62; PULSE 54; RESP 18; TEMP 36.6; O2SAT 94
== END 2024-05-08 14:56 | disposition home or self-care (01) ==
PROVIDERS: Emergency Medicine; Emergency Provider Emergency Medicine Emergency Medical Services; PCP Internal Medicine
DX: R07.9 Chest pain, unspecified (principal); R06.02 Shortness of breath; R62.7 Adult failure to thrive; Z68.1 Body mass index [BMI] 19.9 or less, adult; B20 Human immunodeficiency virus [HIV] disease; B19.20 Unspecified viral hepatitis C without hepatic coma; J69.0 Pneumonitis due to inhalation of food and vomit; J96.90 Respiratory failure, unspecified, unspecified whether with hypoxia or hypercapnia; Z99.81 Dependence on supplemental oxygen; I10 Essential (primary) hypertension; J45.909 Unspecified asthma, uncomplicated; F19.10 Other psychoactive substance abuse, uncomplicated; Z87.891 Personal history of nicotine dependence; Z79.899 Other long term (current) drug therapy; Z93.1 Gastrostomy status
CPT/HCPCS: 36415; 71275; 80048; 80076; 81003; 83690; 83735; 84484; 85025; 85610; 93005; 96361; 96374; 99285; J2270; Q9967

== ENCOUNTER 2024-06-04 08:37 | Outpatient (REF) | payer OTHER, SELFPAY ==
--- NOTE | ~2024-06-04 | US_ITS ---
EXAMINATION: US ABDOMEN COMPLETE CLINICAL INFORMATION: Elevated LFTs. COMPARISON: CT abdomen and pelvis 02/15/2024. X-ray abdomen 01/07/2023. Ultrasound abdomen 01/03/2022. Ultrasound renal 01/25/2019. TECHNIQUE: Real-time imaging of the abdominal viscera. FINDINGS: PANCREAS: The visualized pancreas appears unremarkable but the pancreatic tail is obscured by bowel gas. ABDOMINAL AORTA: The proximal, mid, and distal segments are normal in caliber. INFERIOR VENA CAVA: Visualized portions are normal. LIVER: The liver is normal in size. The liver contour is normal. Parenchymal echogenicity is normal. No focal hepatic lesion. There is no intrahepatic biliary duct dilatation seen. GALLBLADDER: The gallbladder is contracted without evidence of stones, sludge, polyps, or pericholecystic fluid. COMMON BILE DUCT: Normal in caliber measuring 0.2-0.7 cm in diameter. RIGHT KIDNEY: No hydronephrosis. No renal calculi or focal parenchymal lesions. Two (2) renal calculi seen on the prior CT scan are not identified on the current study. The kidney measures 8.6 cm in maximum dimension. LEFT KIDNEY: Two (2) 5 mm echogenic foci are noted in the left kidney, one in the upper pole and one in the mid kidney both with twinkle artifact consistent with nonobstructing calculi. Three (3) nonobstructing calculi were seen on the 02/15/2024 CT scan. No hydronephrosis or focal parenchymal lesions. The kidney measures 9.7 cm in maximum dimension. SPLEEN: Normal. The spleen measures 9.1 cm in maximum dimension. FREE FLUID: None. US/US abdomen complete IMPRESSION: 1. Nonobstructing left renal calculi. 2. No other significant abnormality is seen. Electronically signed by: Barrett Villalobos MD 06/13/2024 12:46 AM EDT
== END 2024-06-04 08:38 | disposition home or self-care (01) ==
LOC: HO.US 08:37
PROVIDERS: PCP Internal Medicine; Visit Provider Internal Medicine Infectious Disease
DX: R74.01 Elevation of levels of liver transaminase levels (principal)
CPT/HCPCS: 76700

== ENCOUNTER 2024-06-24 11:22 | Outpatient (REF) | payer OTHER, SELFPAY | END 2024-06-24 11:23 | disposition home or self-care (01) | LOC: HO.HHCL 11:22 | PROVIDERS: Visit Provider Student in an Organized Health Care Education/Training Program | DX: Z13.89 Encounter for screening for other disorder (principal) ==

== ENCOUNTER 2024-07-15 12:07 | Outpatient (REF) | payer OTHER, SELFPAY ==
[2024-07-15 12:27] LABS: MANUAL DIFF FLAG NO
[2024-07-15 13:47] LABS: Basophils Percent Auto 1.1 % (0-2); Eosinophils Absolute Auto 0.1 X10*3/uL (0.0-0.4); Eosinophils Percent Auto 3.8 % (0-4); Hematocrit 41.3 % (42.0-52.0); Hemoglobin 13.5 g/dl (14.0-18.0); Imm Gran Abs Auto 0.01 X10*3/uL (0.00-0.03); Imm Gran Pct Auto 0.3 % (0.0-0.4); Lymphocytes Absolute Auto 2.1 X10*3/uL (1.2-4.9); Lymphocytes Percent Auto 56.2 % (20-40); Mean Corpuscular HGB Conc 32.7 g/dl (31.0-36.0); Mean Platelet Volume 12.2 fL (9.4-12.4); Monocytes Absolute Auto 0.4 X10*3/uL (0.1-1.2); Monocytes Percent Auto 11.2 % (2-11); Neutrophils Percent Auto 27.4 % (45-73); Platelet Count 190 X10*3/uL (160-400); Red Blood Count 4.09 X10*6/uL (4.60-5.80); White Blood Count 3.7 X10*3/uL (4.8-10.8)
[2024-07-15 14:43] LABS: Alanine Aminotransferase 31 U/L (0-40); Albumin Level 3.9 g/dL (3.5-5.0); Alkaline Phosphatase 51 U/L (39-117); Anion Gap 16 (12-20); Aspartate Amino Transferase 29 U/L (5-37); Bilirubin Total 0.3 mg/dL (0.0-1.0); Blood Urea Nitrogen 4 mg/dL (9-16); Calcium 10.2 mg/dL (8.4-10.2); Carbon Dioxide 27 mmol/L (22-29); Chloride 106 mmol/L (96-108); Estimated Glomerular Filt Rate > 60; Glucose Random 83 mg/dL (60-115); Potassium 3.8 mmol/L (3.3-5.1); Sodium 145 mmol/L (135-145); Total Protein 7.3 g/dL (6.5-8.0)
== END 2024-07-15 12:08 | disposition home or self-care (01) ==
LOC: HO.LAB 12:07
PROVIDERS: PCP Student in an Organized Health Care Education/Training Program; Visit Provider Student in an Organized Health Care Education/Training Program
DX: R07.9 Chest pain, unspecified (principal)
CPT/HCPCS: 36415; 80053; 85025

== ENCOUNTER 2024-07-21 13:28 | Outpatient (AMB) | payer OTHER, SELFPAY ==
--- NOTE | 2024-07-21 13:30 | A.OFFVIS_ITS ---
Vital Signs 07/21/24 13:32 Height 5 ft 7 in Weight 122 lb 5.705 oz BMI 19.2 BP 102/58 L Blood Pressure Location Rt brachial Position Sitting Pulse 88 Pulse Source Pulse Oximeter Pulse Oximetry (%) 92 Oxygen Delivery Method Room Air Intake Visit Reasons: Resp Failure w/Hypoxia/Asthma Allergies Seasonal Allergies Allergy (Intermediate, Verified 07/21/24 13:37) Eye Drainage codeine [From Tylenol-Codeine #3] Allergy (Mild, Verified 07/21/24 13:37) Rash levofloxacin [From Levaquin] Allergy (Mild, Verified 07/21/24 13:37) Rash metoclopramide [From Reglan] Allergy (Mild, Verified 07/21/24 13:37) Rash acetaminophen [Tylenol-Codeine #3] Allergy (Unknown, Verified 07/21/24 13:37) Rash Penicillins [PENICILLINS] Allergy (Unknown, Verified 07/21/24 13:37) Rash ibuprofen [From Motrin] Adverse Reaction (Unknown, Verified 07/21/24 13:37) Reflux HPI HPI Resp Failure w/Hypoxia/Asthma: Details: Benjamin is a pleasant 59 year old male, former minimal smoker, moderate persistent asthma, HIV on Biktarvy viral load undetectable, hypertension, GERD, parkinsonian syndrome, severe protein calorie malnutrition on G-tube feeds, systolic congestive heart failure with EF 40-45% 2022, adult failure to thrive, previous history of oral thrush on voriconazole, previous history of lung abscess s/p decortication in 2022. He is accompanied by SALES FLOOR ASSOCIATE. He was evaluated at [facility] ED on 06/09/24 dx with a PE/DVT as well as aspiration pneumonia. He was treated with ceftriaxone, doxycyline and prednisone with optimal effect. Placed on eliquis 5 mg BID x 3 months, with question of indefinite prescription. CT scan 06/2024 revealed resolution of pulmonary embolism and evidence of multifocal groundglass opacities in the left lower patchy airspace disease along with incidental 1.2 cm nodule. He was referred by PCP for pulmonary evaluation to determine if patient is to maintain eliquis indefinitely. He currently denies any respiratory symptoms. He has been using albuterol nebulizer with good effect. He has had thrush for quite some time on voriconazole with moderate effect, therefore has avoided use of ICS. He reports asthma was diagnosed as an adult never requiring intubation for respiratory distress. He denies seasonal allergies. He denies occupational exposures. He reports mother with asthma, othe rwise no pertinent family history. He denies any prior PE/DVT or family history. [facility] Medical History (Updated 07/23/24 @ 16:08 by Sheryl Rodriguez NP) HIV (human immunodeficiency virus infection) Asthma Dysphagia Adult failure to thrive Adult failure to thrive Multiple rib fractures History of empyema of pleura (01/05/23) Hypertension Closed fracture of leg Hepatitis C Kidney stones Pleuritic chest pain Pneumonia Substance abuse Hemorrhoids Depression HIV (human immunodeficiency virus infection) Asthma Surgical History H/O hemorrhoidectomy Social History Household Members: Caregiver Household Members Other:: lives with SALES FLOOR ASSOCIATE Housing: Apartment Do you presently have visiting nurse or other home services: Yes Alcohol intake: never Patient Tobacco Use Status: Former Tobacco user Tobacco use type: Cigarette e-Cigarette/Vaping Use: Never Used Second Hand Smoke Exposure: No Substance Use Type: Crack/Cocaine Advance Directives Date on File: 04/25/21 service: No Current occupational status: disabled Review of Systems Const Denies chills, Denies excessive sweating, Reports fatigue, Denies fever(s), Denies headache(s), Denies night sweats and Reports weakness Eyes Denies dry eyes, Denies irritation and Denies itchy eyes ENT Reports Normal hearing present, Reports dysphagia, Denies headache(s), Denies nasal congestion, Denies nasal discharge, Denies post nasal drip and Denies sore throat Card Denies chest pain, Denies chest pain at rest, Denies chest pain with activity, Denies claudication, Denies leg edema, Denies dyspnea, Denies dyspnea on exertion, Denies orthopnea and Denies paroxysmal nocturnal dyspnea Resp Denies chest congestion, Denies cough, Denies excessive phlegm production, Denies pain on inspiration, Denies pain with cough, Denies dyspnea, Denies dyspnea on exertion, Denies stridor and Denies wheezing GI Reports dysphagia Neuro Reports Normal hearing present, Denies headache(s) and Reports weakness Endo Denies excessive sweating and Reports fatigue Aller/Immun Denies itchy eyes, Denies seasonal rhinorrhea and Denies wheezing Physical Exam Vital Signs: Last Vital Signs Pulse 88 07/21/24 13:32 BP 102/58 L 07/21/24 13:32 Pulse Ox 92 07/21/24 13:32 Oxygen Delivery Method Room Air 07/21/24 13:32 BMI result Body Mass Index 19.2 Const General: cooperative, comfortable, no acute distress and alert Nutritional Appearance: cachectic Orientation/consciousness: patient oriented x3 HEENT Head: Yes normal to inspection, Yes normocephalic and Yes atraumatic Ears: hearing grossly normal bilaterally and external ears normal Eyes General: appearance normal, both eyes and all related structures Eyelids: Yes eyelids normal Sclerae: sclerae normal EOM: EOMs intact bilaterally Neck Neck: Yes normal visual inspection and Yes no lymphadenopathy Lymphatic: no lymphadenopathy noted Chest Chest palpation & inspection: normal inspection of the chest Resp Other: bibasilar inspiratory crackles Effort & Inspection: normal respiratory effort, able to speak in complete sentences, no audible wheezes, no cough, no stridor, not tachypneic, no tripod positioning and no use of accessory muscles Auscultation: clear to auscultation bilaterally Cardio Jugular venous distension: no JVD Rate: regular rate Rhythm: regular rhythm Skin Other: warm, dry General skin exam: no rashes or lesions noted Neuro General: patient oriented x3 Cranial nerves: Yes Normal hearing present Cognition (Neuro): normal cognition Gait exam (Neuro): Normal gait present Extrem General: Yes normal to inspection, Yes capillary refill normal, Yes no clubbing, cyanosis or edema and Yes no pedal edema Psych Appearance: grossly normal and well kempt Speech and movement: Normal speech and movement present and Clear speech present Affect: normal affect Attitude: cooperative Thought process: Normal thought process present Thought content: Normal thought content present Insight: Good insight present (Psych) Judgement: Good judgement present (Psych) Results Reviewed Results Reviewed: RESULT: CT Angio Chest EXAMINATION: CT Angio Chest INDICATION: Hx of Present Illness: coming from [place] urgent care with 7 10 crushing, midsternal chest pain, nonradiating. Given 2 doses of nitro with some improvement in pain; Reason: Other:; PE Suspected, Intermediate Prob, Positive D-Dimer; Clinical Question(s): Pulmonary Embolism; Order Comment: TECHNIQUE: Spiral CTA of the chest was performed after rapid IV contrast administration without cardiac gating, triggered by an CRISTOBAL on the main pulmonary artery. Images are formatted in multiple planes using 2-D multiplanar and 3-D maximum intensity projection. 100 cc of Omnipaque 300 was administered intravenously. Weight-based protocol using automatic tube modulation was used to optimize exposure parameters. CTDIvol Body: 15.73 mGy, DLP Body: 479 mGy*cm. COMPARISONS: None. ANGIOGRAPHIC FINDINGS: Evaluation is moderately limited by motion artifact. Acute lobar pulmonary embolism in left upper lobe and additional subsegmental pulmonary emboli throughout both lungs. No interventricular septal bowing or reflux of contrast into the IVC. No evidence of right heart strain. No acute aortic abnormality seen on this study performed without cardiac gating. NON-ANGIOGRAPHIC FINDINGS: [place] Machine Operator View Findings, Lines and Tubes: None. Trachea and Airways: There is filling defect in right mainstem bronchus with extension into the bronchus intermedius and right lower lobe central airways, likely representing inspissated secretions or aspirated material (for example, images 35 and 36 of series 405). Lungs and Pleura: Evaluation of the lungs for fine details is limited due to respiratory motion artifacts. There are scattered geographic and centrilobular groundglass opacities throughout both lungs and patchy confluent opacities in left lower lobe. No effusion or pneumothorax. Mediastinum and osbaldo: There are a few prominent mediastinal lymph nodes with the largest measuring 1 cm in subcarinal region, most likely reactive. No esophageal abnormality. Heart: Heart is normal in size. No pericardial effusion. Chest Wall Soft Tissues: Normal. Diaphragm and upper abdomen: No significant abnormality. Bones: No acute abnormality. Chronic appearing mild compression deformities in T3-T8. IMPRESSION: 1. Acute lobar pulmonary embolism. Findings do not meet CT criteria for submassive PE. 2. Bilateral geographic and centrilobular groundglass opacities with confluent patchy opacities in left lower lobe, suggestive of an infectious or inflammatory process with possible superimposed perfusion given presence of PE. Aspiration should be considered in the differential diagnosis since there are inspissated secretions or aspirated material in central airways as described above. RESULT: CT Angio Chest EXAMINATION: CT Angio Chest INDICATION: Reason: Other:; PE suspected, Intermediate prob, positive D-dimer,; Clinical Question(s): Pulmonary Embolism; Order Comment: TECHNIQUE: Spiral CTA of the chest was performed after rapid IV contrast administration without cardiac gating, triggered by an CRISTOBAL on the main pulmonary artery. Images are formatted in multiple planes using 2-D multiplanar and 3-D maximum intensity projection. 75 cc of Omnipaque 300 was administered intravenously. Weight-based protocol using automatic tube modulation was used to optimize exposure parameters. CTDIvol Body: 8.67 mGy, DLP Body: 409 mGy*cm. COMPARISONS: 06/09/2024. ANGIOGRAPHIC FINDINGS: Evaluation is moderately limited by motion artifact. No pulmonary embolism to the subsegmental level. Normal caliber pulmonary arteries. No acute aortic abnormality seen on this study performed without cardiac gating. NON-ANGIOGRAPHIC FINDINGS: [place] Machine Operator View Findings, Lines and Tubes: None. Trachea and Airways: Redemonstrated debris in the distal trachea and right mainstem bronchus likely representing inspissated secretions or aspirated material. Lungs and Pleura: Multifocal groundglass opacities, though significantly improved from the prior exam, particularly in the left lower lobe. 1.2 cm nodule noted in the left lower lobe remaining at the site of previously confluent patchy opacities (image 54). Dependent atelectasis in both lower lobes, right greater than left. No significant pleural effusion. No pneumothorax. Mediastinum and osbaldo: No mass or hematoma. Redemonstrated borderline mediastinal lymph nodes measuring up to 1cm in the subcarinal region. No esophageal abnormality. Normal thyroid. Heart: Heart is at the upper limits of normal for size. No pericardial effusion. Chest Wall Soft Tissues: Normal. Diaphragm and upper abdomen: No significant abnormality. Bones: No acute abnormality. Unchanged posttraumatic changes of the posterolateral left ribs. Chronic compression deformities of T3-T8 vertebral bodies, unchanged. IMPRESSION: Examination is moderately motion degraded. Previously seen lobar and segmental pulmonary embolism are not redemonstrated on today's examination. No evidence of large or central pulmonary embolism. Improvement in the multifocal groundglass opacities and left lower patchy airspace opacities with residual 1.2 cm nodule in the left lower lobe. This is likely infectious or inflammatory in etiology. Recommend follow-up in 3 months to ensure resolution and exclude underlying malignancy. Inspissated secretions or aspirated material are again seen in the central airways as described above. Assessment & Plan Assessment & Plan (1) History of pulmonary embolism: Code(s): Z86.711 - Personal history of pulmonary embolism Category: Medical (2) Asthma: Code(s): J45.909 - Unspecified asthma, uncomplicated Category: Medical (3) Dysphagia: Code(s): R13.10 - Dysphagia, unspecified Category: Medical Qualifiers: Dysphagia type: unspecified Qualified Code(s): R13.10 - Dysphagia, unspecified (4) HIV (human immunodeficiency virus infection): Code(s): Z21 - Asymptomatic human immunodeficiency virus [HIV] infection status Category: Medical (5) Pulmonary nodule: Code(s): R91.1 - Solitary pulmonary nodule Category: Medical Plan Benjamin presents for pulmonary evaluation for recent aspiration pneumonia and pulmonary embolism, currently on eliquis 5 mg BID. At this time, will send for hematology consult to assess for any underlying clotting disorders as no provoking factors, other than decreased activity. Would recommend continuing on 5 mg BID until consultation. No prior PE/DVT noted. No family history. Chest CT revealed resolution of PE with multifocal groundglass opacities, though significantly improved from 05/2024, particularly in the left lower lobe patch opacities of LLL with a 1.2 cm LLL nodule, will repeat in 3 months to assess stability. If persists, consider PET. Will also send for CXR today as patient with bibasilar inspiratory crackles on exam. Prior echo revealed LVEF 40-45% unable to assess for RVSP. Will repeat echo to assess for pulmonary HTN to rule out HIV-associated pulmonary hypertension. Discussed importance of aspiration precautions as patient likely microaspirating. He also notes persistent drooling, currently with thrush on voriconazole. Advised to continue albuterol nebulizer PRN and will avoid ICS at this time due to persistent thrush. All questions were answered and patient is in agreement of plan. Will follow up in 6-8 weeks or sooner if needed. Orders: Orders XR chest 2V 07/21/24 R05.9 - Cough, unspecified CT chest wo IV con 2 Months R91.1 - Solitary pulmonary nodule CA echo transthoracic complete Today R06.00 - Dyspnea, unspecified, Z21 - Asymptomatic human immunodeficiency virus [HIV] infection status Referrals Hematology & Oncology Referral Z86.711 - Personal history of pulmonary embolism Coding Level of Care Code New Pt Level 5 (14294) Diagnoses History of pulmonary embolism Z86.711 Asthma J45.909 Dysphagia R13.10 Dysphagia type: unspecified HIV (human immunodeficiency virus infection) Z21 Pulmonary nodule R91.1 Time Spent (min) 55
[2024-07-21 13:32] VITALS: BP 102/58; PULSE 88; O2SAT 92; BMI 19.2
== END 2024-07-21 14:29 | disposition home or self-care (01) ==
PROVIDERS: PCP Internal Medicine; Referring Provider Nurse Practitioner Primary Care; Visit Provider Nurse Practitioner Family
DX: J45.909 Unspecified asthma, uncomplicated (principal); Z86.711 Personal history of pulmonary embolism; R13.10 Dysphagia, unspecified; B20 Human immunodeficiency virus [HIV] disease; R91.1 Solitary pulmonary nodule
CPT/HCPCS: 99205

== ENCOUNTER 2024-07-21 13:28 | Outpatient (REF) | payer OTHER, SELFPAY ==
--- NOTE | ~2024-07-21 | XR_ITS ---
EXAMINATION: XR CHEST CLINICAL INFORMATION: Cough COMPARISON: 04/14/2024 TECHNIQUE: 2 views of the chest were obtained. FINDINGS: Surgical clips again identified overlying the posterior left hemithorax. Heart, mediastinum and vascularity within normal limits. Scattered atelectasis. No consolidations. Underlying hyperinflation. Trace costophrenic angle blunting bilaterally. Mild compression deformities. XR/XR chest 2V IMPRESSION: Scattered atelectasis. Electronically signed by: Fatmata Haynes MD 07/22/2024 08:05 AM BORIS VELÁSQUEZ
== END 2024-07-21 13:29 | disposition home or self-care (01) ==
LOC: HO.XRAY 13:28
PROVIDERS: PCP Internal Medicine; Referring Provider Nurse Practitioner Primary Care; Visit Provider Nurse Practitioner Family
DX: R05.9 Cough, unspecified (principal); J45.909 Unspecified asthma, uncomplicated; R13.10 Dysphagia, unspecified; Z21 Asymptomatic human immunodeficiency virus [HIV] infection status; Z86.711 Personal history of pulmonary embolism; R91.1 Solitary pulmonary nodule
CPT/HCPCS: 71046; 99202

== ENCOUNTER → 2024-08-05 11:08 | Outpatient (BNV) | payer OTHER, SELFPAY | PROVIDERS: PCP Student in an Organized Health Care Education/Training Program; Referring Provider Student in an Organized Health Care Education/Training Program; Visit Provider Internal Medicine | DX: Z86.711 Personal history of pulmonary embolism (principal); Z79.01 Long term (current) use of anticoagulants | CPT/HCPCS: 99204; G2211 ==

== ENCOUNTER 2024-08-06 10:51 | Emergency (ER) | payer OTHER, SELFPAY ==
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
[2024-08-06 11:01] VITALS: BP 130/72; PULSE 93; O2SAT 99; BMI 23.9
[2024-08-06 11:11] VITALS: BP 116/72; PULSE 93; RESP 16; TEMP 37.1; O2SAT 91
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
[2024-08-06 15:46] VITALS: BP 137/86; PULSE 77; RESP 16; TEMP 36.8; O2SAT 96
[2024-08-06] MEDS: traMADoL HCL 50 MG TABLET PO (17:29)
[2024-08-06 17:38] VITALS: BP 137/86; PULSE 77; RESP 16; TEMP 36.8; O2SAT 96
== END 2024-08-06 17:38 | disposition home or self-care (01) ==
PROVIDERS: Emergency Provider Emergency Medicine Emergency Medical Services; PCP Student in an Organized Health Care Education/Training Program
DX: S13.4XXA Sprain of ligaments of cervical spine, initial encounter (principal); V43.62XA Car passenger injured in collision with other type car in traffic accident, initial encounter; Y93.89 Activity, other specified; Y92.414 Local residential or business street as the place of occurrence of the external cause; Y99.9 Unspecified external cause status; R93.89 Abnormal findings on diagnostic imaging of other specified body structures
CPT/HCPCS: 70450; 72100; 72125; 99284

== ENCOUNTER → 2024-08-06 11:27 | Outpatient (BNV) | payer OTHER, SELFPAY | PROVIDERS: Emergency Provider Emergency Medicine Emergency Medical Services; PCP Student in an Organized Health Care Education/Training Program; Visit Provider Radiology Diagnostic Radiology | DX: M54.2 Cervicalgia (principal); R51.9 Headache, unspecified | CPT/HCPCS: 72100 ==

== ENCOUNTER 2024-09-05 08:59 | Outpatient (AMB) | payer OTHER, SELFPAY ==
[2024-09-05 09:00] VITALS: BP 134/90; PULSE 105; BMI 24.4
--- NOTE | 2024-09-05 09:00 | A.OFFVIS_ITS ---
Vital Signs 3 09/05/24 09:00 Height 5 ft 3 in Weight 138 lb 0.15 oz BMI 24.4 BP 134/90 H Blood Pressure Location Lt brachial Position Sitting Pulse 105 H Pulse Source Pulse Oximeter Intake Visit Reasons: Adrenal hyperplasia, osteoporosis Intake Note: New patient present today for Adrenal hyperplasia, osteoporosis office visit. Marble Cleaner Required: No Accompanied by: CERTIFIED SHORTHAND REPORTER Allergies Seasonal Allergies Allergy (Intermediate, Verified 09/05/24 09:04) Eye Drainage codeine [From Tylenol-Codeine #3] Allergy (Mild, Verified 09/05/24 09:04) Rash levofloxacin [From Levaquin] Allergy (Mild, Verified 09/05/24 09:04) Rash metoclopramide [From Reglan] Allergy (Mild, Verified 09/05/24 09:04) Rash acetaminophen [Tylenol-Codeine #3] Allergy (Unknown, Verified 09/05/24 09:04) Rash Penicillins [PENICILLINS] Allergy (Unknown, Verified 09/05/24 09:04) Rash ibuprofen [From Motrin] Adverse Reaction (Unknown, Verified 09/05/24 09:04) Reflux Medication List - Last Reconciled 09/05/24 by Ritu Scott MD albuterol sulfate 90 mcg/actuation (Ventolin HFA) 2 puffs inhalation Q6H PRN amlodipine 5 mg PO DAILY atropine sulfate (PF) 1% Place 2 drops under the tongue every 2 hours as needed for secretions Hospice patient [id number] ala 50-200-25 mg (Biktarvy) 1 tab PO DAILY budesonide 90 mcg/actuation 2 inhalations inhalation BID calcium carbonate-vitamin D3 600 mg-20 mcg (800 unit) 1 tab feeding tube BID@1200,1800 clonazepam 1 mg feeding tube DAILY diphenhydramine HCl (Benadryl) 50 mg PO BEDTIME ferrous gluconate 324 mg feeding tube BID fluconazole 100 mg feeding tube DAILY gabapentin 600 mg feeding tube TID haloperidol lactate Take 0.5 mL (1 mg) to 1.0 mL (2 mg) by mouth or under the tongue every 4 hours as needed for agitation Hospice care lorazepam (Lorazepam Intensol) Take 0.25 mL (0.5 mg) to 1 mL (2 mg) by tongue or under the tongue every 4 hours as needed for anxiety or agitation Hospice patient megestrol 5 mL feeding tube DAILY mirtazapine 60 mg (2 x 30 mg) feeding tube BEDTIME morphine concentrate Take 0.25 mL (5 mg) to 0.5 mL (10 mg) by mouth or under the tongue every hour as needed for pain or shortness of breath Hospice patient Partial Fill upon patient request. omeprazole 10 mg feeding tube DAILY@0630 PRN propranolol ER 120 mg PO DAILY risperidone 3 mg feeding tube BEDTIME somatropin (Serostim) 6 mg subcut DAILY tramadol 50 mg feeding tube BID PRN HPI Comments Details: 59-year-old male with past medical history significant for HIV, hepatitis-C, seizure disorder, hypertension, prediabetes, anxiety/depression, asthma, history of left lung empyema status post drainage, chronic respiratory failure and recurrent aspiration pneumonia, parkinsonism, cardiomyopathy coming in today to establish care for adrenal hyperplasia and osteoporosis. Here today with CERTIFIED SHORTHAND REPORTER. Osteoporosis DEXA scan February 2023 baseline showed osteoporosis with a lumbar spine T-score - 4.5 with L2 as low as -5.1 , -2.1 in total femur and -2.7 left femoral neck Osteoporosis new pt evaluation osteoporosis: Diagnosed in February 2023 Fracture History: None Height loss: patient says he used to be 5 ' 6 before Back pain: reports B/L lower back pain , intermittent , started 2 weeks ago Pharmacotherapeutic hx: None Drug holiday None Family history: mother had osteoporosis , no parent fractured hip Secondary risk factors: Steroid use: has required intermittent steroids for pneumonia Hyperthyroidism: Neg Seizure medication use: has history of seizure medication use Chemo or Radiation use: Neg Heparin Use: Neg History of eating disorder: yes on PEG tube due to dysphagia for 1 year intermediate card tender immobilization: Negative History of kidney stones or disease:Yes Ct abd 03/03 Kidneys and Ureters: Multiple bilateral nonobstructive renal calculi measuring up to 3 mm. No hydronephrosis. No perinephric fat stranding. has had 2 hospitalizations PI Use: Yes Chronic inflammatory lung disease: Yes Chronic inflammatory bowel disease: Negative Daily calcium intake: milk three cups a day, no cheese or yogurt , through PEG tube 600 mg BID calcium Vitamin D intake: through PEG tube 800 units BID vitamin D Exercise:not active Smoking history:never smoker Dental: Has regular dental cleaning, no issues has appointment in Oct 2024 Not sexually active No trouble with erections , ejaculation, Does endorse decreased libido Adrenal hyperplasia CT chest abdomen pelvis February 2024 showed mild asymmetric fullness of the left adrenal gland which is unchanged. CT abdomen 01/03/2023: Showed stable fullness of both adrenal glands. 05/01/2021: Also commented on left adrenal gland is thickened without any discrete mass, right adrenal gland unremarkable Lab workup done March 2023 showed aldosterone of 3, renin activity of 0.5, random cortisol of 8.2, no ACTH level done at that time, mildly elevated plasma free metanephrine of 63 and mildly elevated plasma free normetanephrine of 162, normal 24 hour urine free metanephrine and normetanephrine levels from 04/06/2023. No fractures, has osteoporosis which is severe as noted above. Has well-controlled blood pressure, only on amlodipine. No history of diabetes mellitus. No easy bruising, no proximal muscle weakness he does not have problems with the obesity, if anything he has had failure to thrive due to dysphagia, now better with PEG tube. Physical exam General: sitting comfortably in no acute distress HEENT: normocephalic/atraumatic Neck: supple, symmetrical, no thyromegaly Cardiac: normal heart sounds Pulm: normal breath sounds B/L, no added breath sounds Abd: not distended, no tenderness, PEG tube noted Extremities: no edema, no signs of myxedema Laboratory Tests 01/04/23 04/04/23 04/06/23 05:08 09:39 06:00 Sodium Potassium 2.9 L D Creatinine Estimated GFR Calcium Phosphorus Magnesium Albumin Renin Activity 0.55 Aldosterone 3 Aldosterone/Renin Ratio 5.5 PTH Intact 30 Random Cortisol 8.2 Plasma Free Metaneph 63 H Plasma Free Normeta 162 H Plas Total Metaneph 225 H U Free Metanephrine 160 U Normetanephrine 24h 310 U Tot Metanephrine 24h 470 03/15/24 03/17/24 03/18/24 12:51 05:54 05:54 Sodium Potassium Creatinine Estimated GFR Calcium 8.0 L 8.5 D Phosphorus 2.6 L Magnesium Albumin Renin Activity Aldosterone Aldosterone/Renin Ratio PTH Intact Random Cortisol Plasma Free Metaneph Plasma Free Normeta Plas Total Metaneph U Free Metanephrine U Normetanephrine 24h U Tot Metanephrine 24h 05/07/24 07/15/24 04:06 12:26 Sodium 145 Potassium 3.8 Creatinine 0.88 Estimated GFR > 60 Calcium 10.1 D 10.2 Phosphorus Magnesium 2.3 Albumin 3.9 Renin Activity Aldosterone Aldosterone/Renin Ratio PTH Intact Random Cortisol Plasma Free Metaneph Plasma Free Normeta Plas Total Metaneph U Free Metanephrine U Normetanephrine 24h U Tot Metanephrine 24h Imaging BONE DENSITOMETRY 03/07/23 CLINICAL INDICATION: Compression deformity of vertebra. COMPARISON: None (current study represents initial baseline exam). TECHNIQUE: Using a 3Jam DXA System (software version: 13.1) manufactured by [employer], dual-energy x-ray absorptiometry was performed of the lumbar spine and left hip. The images are of good technical quality. Summary results are attached. FINDINGS: LEFT FEMUR, NECK: BMD 0.716 g/cm2, Z-score -1.4, T-score -2.7, osteoporosis. LEFT FEMUR, TOTAL: BMD 0.801 g/cm2, Z-score -1.2, T-score -2.1, osteopenia. AP SPINE L1-L4: BMD 0.681 g/cm2, Z-score -3.5, T-score -4.5, osteoporosis. IDENTIFIED RISK FACTORS: Low calcium intake, history of fracture (adult). HISTORY OF FRACTURE: Ankle. MEDICATIONS: Multivitamin. MM/XR DEXA axial skeleton IMPRESSION: 1. DIAGNOSIS: Osteoporosis based on the lowest T-score value of -4.5 in the lumbar spine applying World Health Organization criteria. 2. 10-YEAR FRACTURE RISK PREDICTION, FRAX: According to the guidelines, FRAX calculation should only be performed on patients in the osteopenia bone density category. Therefore, FRAX was not performed on this patient. CT CHEST, ABDOMEN AND PELVIS WITHOUT CONTRAST. 02/15/24 CLINICAL INFORMATION: Chest pain, shortness of breath, left flank pain. COMPARISON: CT chest 01/10/2024. CT abdomen/pelvis 01/03/2023. TECHNIQUE: Multidetector volumetric imaging was performed from the thoracic inlet through the pubic symphysis without IV contrast. Sagittal and coronal reformatted images were obtained on the technologist's workstation. This CT examination was performed using dose optimization techniques as appropriate, variously including the following: *Automated exposure control *Adjustment of mA and/or kV according to patient size (this includes techniques or standardized protocols for targeted exams where dose is matched to indication/reason for exam; i.e. extremities or head) *Use of iterative reconstruction technique DLP: 418 mGy-cm FINDINGS: Limited noncontrast examination. CHEST: Lung: Evaluation is limited due to respiratory motion. No dense consolidation. Dependent subsegmental atelectasis and/or scarring. Layering intraluminal secretions are noted in the upper trachea, ciro and left mainstem bronchi. Focal mild bronchiectasis and architectural distortion in the superior aspect of the right lower lobe (7:156). Minimal groundglass attenuation of the lung parenchyma in the right apex (7:53). Few bilateral up to 3 mm solid pulmonary nodules, for instance in the right lower lobe images 256 and 228 series 7. Very subtle focal groundglass nodule in the right lower lobe measuring 8 mm image 178 series 7. Mediastinum: Cardiomegaly. No pericardial effusion. No mediastinal lymphadenopathy. Evaluation of the hilar structures is limited in the absence of IV contrast. Normal appearance of the thyroid gland. Pleura: No pleural effusion. No pneumothorax. Chest Wall/Axilla: No lymphadenopathy by size criteria. Osseous structures: Stable multilevel vertebral body height loss. Thoracic spondylosis. Unchanged deformities of the left seventh and eighth ribs with overlying metallic densities along the posterior aspect of these ribs. No acute osseous findings. ABDOMEN/PELVIS: Peritoneal Space: No free air or free fluid. Liver, Gallbladder, Biliary Tree: The liver is normal in size, shape, and attenuation. No focal hepatic lesion or biliary ductal dilatation is present. The gallbladder is unremarkable with no evidence of radiopaque gallstones, gallbladder wall thickening, or obvious pericholecystic inflammatory changes. Pancreas: Unremarkable. Spleen: Unremarkable. Adrenal Glands: Mild asymmetric fullness of the left adrenal gland is unchanged. Kidneys and Ureters: Multiple bilateral nonobstructive renal calculi measuring up to 3 mm. No hydronephrosis. No perinephric fat stranding. Bladder: Punctate calcification abutting the left posterior bladder wall (11:65). Gastrointestinal Tract: Gastrostomy tube. The stomach and the small bowel are nondilated. Normal appendix. Mild colonic diverticulosis without pericolonic inflammatory changes. No evidence of bowel obstruction. Abdominal Wall: No significant hernia is appreciated. Lymphovascular Structures: No lymphadenopathy by size criteria. Normal caliber abdominal aorta. Pelvic Viscera: Unremarkable. Osseous Structures: No acute osseous findings. CT/CT abdomen pelvis wo IV con IMPRESSION: 1. No focal consolidation or significant groundglass disease. Intraluminal secretions in the trachea and left mainstem bronchi that could be related with mucous secretions or aspirated material and that could predispose to aspiration. 2. Few bilateral groundglass and solid pulmonary nodules measuring up to 8 mm. Following Fleischner guidelines, follow-up CT chest in 3-6 months is recommended. 3. Nonobstructive bilateral renal calculi. 4. Punctate calcification abutting the left posterior bladder wall that could be related with a recently passed stone. Recommend attention on follow-up in future examinations to ensure the absence of underlying mural lesions. 5. Diverticulosis but no evidence of acute diverticulitis. CT ABDOMEN AND PELVIS WITHOUT CONTRAST 12/17/20 CLINICAL INFORMATION: Abdominal pain. No bowel movement in 5 days. Nausea. COMPARISON: CT abdomen and pelvis noncontrast 04/03/2020 TECHNIQUE: Multidetector volumetric imaging was performed from the superior aspect of the liver through the pubic symphysis. Sagittal and coronal reformatted images were obtained on the technologist's workstation. This CT examination was performed using dose optimization techniques as appropriate, variously including the following: *Automated exposure control *Adjustment of mA and/or kV according to patient size (this includes techniques or standardized protocols for targeted exams where dose is matched to indication/reason for exam; i.e. extremities or head) *Use of iterative reconstruction technique DLP: 347 mGy-cm FINDINGS: LUNG BASES: The visualized lung bases are unremarkable. LIVER, GALLBLADDER, AND BILIARY TREE: The liver is normal in size and smooth in contour. There is mild hepatic steatosis. No focal hepatic parenchymal lesion or intrahepatic ductal dilatation. The gallbladder is unremarkable with no evidence of radiopaque gallstones, gallbladder wall thickening, or obvious pericholecystic inflammatory changes. PANCREAS: Mildly atrophic. No duct dilatation or retroperitoneal inflammatory changes. SPLEEN: Normal in size. Small splenule again seen left upper quadrant, 1 cm. ADRENAL GLANDS: Mild fullness left adrenal stable. Right adrenal unremarkable. KIDNEYS AND URETERS: The kidneys are normal in size and smooth in contour and show no hydronephrosis. There is no hydroureter or perinephric stranding. Again, multiple small nonobstructing intrarenal calculi are present under 5 mm. No ureteral calculi. BLADDER: Unremarkable. GASTROINTESTINAL TRACT: There is moderate stool throughout the colon. There is no small or large bowel dilatation or focal inflammatory changes in the bowel or mesentery. No rectal fecal impaction. The appendix is not demonstrated with certainty and not visible on prior CT 2020 as well. There are no inflammatory changes around the terminal ileum or cecum. No ascites or fluid collection. ABDOMINAL WALL: No significant hernia is appreciated. LYMPH NODES: No lymphadenopathy. VASCULAR: Unremarkable. PELVIC VISCERA: Unremarkable. OSSEOUS STRUCTURES: Unremarkable. CT/CT abdomen pelvis wo con IMPRESSION: 1. Moderate stool throughout colon consistent with clinical history. No bowel obstruction or focal inflammatory changes. 2. Bilateral small nonobstructing renal calculi similar to prior CT 2020. No hydronephrosis or perinephric stranding. [facility] Medical History HIV (human immunodeficiency virus infection) Asthma Dysphagia Adult failure to thrive Adult failure to thrive Multiple rib fractures History of empyema of pleura (01/05/23) Hypertension Closed fracture of leg Hepatitis C Kidney stones Pleuritic chest pain Pneumonia Substance abuse Hemorrhoids Depression HIV (human immunodeficiency virus infection) Asthma Surgical History H/O hemorrhoidectomy Family History Maternal Grandmother Lung cancer Maternal Aunt Lung cancer Mother Lung cancer Social History Household Members: Caregiver Household Members Other:: lives with [facility] Housing: Apartment Do you presently have visiting nurse or other home services: Yes Alcohol intake: never Patient Tobacco Use Status: Former Tobacco user Tobacco use type: Cigarette e-Cigarette/Vaping Use: Never Used Second Hand Smoke Exposure: No Substance Use Type: Crack/Cocaine Advance Directives Date on File: 04/25/21 service: No Current occupational status: disabled Gender identity: Male Physical Exam Vital Signs: Last Vital Signs Pulse 105 H 09/05/24 09:00 BP 134/90 H 09/05/24 09:00 BMI result Body Mass Index 24.4 Assessment & Plan Assessment & Plan (1) Height loss: Code(s): R29.890 - Loss of height Category: Medical Plan: See below (2) Osteoporosis: Code(s): M81.0 - Age-related osteoporosis without current pathological fracture Category: Medical Qualifiers: Osteoporosis type: age-related Presence of current pathological fracture: without current pathological fracture Qualified Code(s): M81.0 - Age- related osteoporosis without current pathological fracture Plan: 59-year-old male with past medical history significant for HIV, hepatitis-C, seizure disorder, hypertension, prediabetes, anxiety/depression, asthma, history of left lung empyema status post drainage, chronic respiratory failure and recurrent aspiration pneumonia, parkinsonism, cardiomyopathy coming in today to establish care for adrenal hyperplasia and osteoporosis. Osteoporosis was diagnosed on bone density scan in February 2023 which showed severe osteoporosis in the lumbar spine with T-score of-4.5 with L4 as low as-5.1. He also has osteoporosis at the left femoral neck with T-score of -2.7. Patients who have so much discordance in between bone densities in the spine and hip are also at higher risk of fracture compared to those who do not. Plus given his T- scores, he is at severe risk of fractures given his bone fragility. Has risk factors are HIV, history of hepatitis-C, history of seizure disorder with the use of medications in the past, chronic PPI use, malnutrition, chronic respiratory failure. I discussed conservative measures including adequate calcium intake, adequate vitamin D levels as well as the role of weightbearing exercises in general being good for bone health. For now I will check his vitamin-D levels, he is to continue taking says 100 mg of calcium and 800 units of vitamin-D b.i.d. through his PEG tube as he is taking. In addition to conservative management with calcium and vitamin D; I do believe she would benefit from antiresorptive therapy in terms of reducing future fracture risk. Today we discussed the options of anabolic agents, as well as Prolia. Given severe osteoporosis he definitely needs a stronger agent. I counseled regarding the mechanism of action, route of administration, common side effects as well as black box warnings particularly osteonecrosis of the jaw and atypical femur fracture. Prior to initiating therapy I would like her to complete work-up to get baseline bone turnover markers as well as rule out secondary causes of osteoporosis. We will also assess him for any vertebral fractures given significant loss of height. Plan: -ordered secondary workup for osteoporosis -check bone turnover markers -continue vitamin-D 800 units b.i.d. and calcium 600 mg b.i.d. through PEG tube -weight-bearing exercise advised -fall precautions advised -x-rays of spine ordered -follow up in 6 weeks (3) Adrenal hyperplasia: Code(s): E27.8 - Other specified disorders of adrenal gland Category: Medical Plan: 59-year-old male who is noted to have adrenal hyperplasia at least since [address] scan of the abdomen revealed fullness of the left adrenal gland, subsequent CT scans, most recently done in February 2024 again showed mild asymmetric fullness of the left adrenal gland. I reviewed the images myself the right adrenal gland is also slightly more thickened than normal. The left 1 definitely he is much more fall, no discrete mass identified. He has had functional Lab workup done March 2023 showed aldosterone of 3, renin activity of 0.5, random cortisol of 8.2, no ACTH level done at that time, mildly elevated plasma free metanephrine of 63 and mildly elevated plasma free normetanephrine of 162, normal 24 hour urine free metanephrine and normetanephrine levels from 04/06/2023. Lab workup clearly ruled out primary hyperaldosteronism as well as no concern for pheochromocytoma. Mild elevations in plasma metanephrine normetanephrine scan be seen in many other conditions/interference from medications. This is not significant elevation to be concerned about pheochromocytoma. Given that he does have osteoporosis, we will do a 1 mg dexamethasone suppression test specially given he was not evaluated for this in the past. Plan: -check baseline ACTH, cortisol, DHEA-S levels -do 1 mg dexamethasone suppression test -we will consider doing a CT adrenal focused in 1 year from now though given how this fullness has remained stable since 2020 this is very reassuring and not concerning for any malignancy -follow up in 6 weeks to discuss results Plan I spent 60 minutes in reviewing the record, seeing the patient and documenting in the medical record. Orders: Orders 2 XR lumbar spine 2-3V Today M81.0 - Age-related osteoporosis without current pathological fracture, R29.890 - Loss of height Albumin Level Today E27.8 - Other specified disorders of adrenal gland, M81.0 - Age-related osteoporosis without current pathological fracture, R29.890 - Loss of height Collagen Type I C-Telopeptide Today E27.8 - Other specified disorders of adrenal gland, M81.0 - Age-related osteoporosis without current pathological fracture, R29.890 - Loss of height Calcium, Ionized Today E27.8 - Other specified disorders of adrenal gland, M81.0 - Age-related osteoporosis without current pathological fracture, R29.890 - Loss of height Phosphorus Today E27.8 - Other specified disorders of adrenal gland, M81.0 - Age-related osteoporosis without current pathological fracture, R29.890 - Loss of height Calcium, 24 Hr Ur Today E27.8 - Other specified disorders of adrenal gland, M81.0 - Age-related osteoporosis without current pathological fracture, R29.890 - Loss of height Creatinine, 24 Hr Group Today E27.8 - Other specified disorders of adrenal gland, M81.0 - Age-related osteoporosis without current pathological fracture, R29.890 - Loss of height Vitamin D 25-OH Total Today E27.8 - Other specified disorders of adrenal gland, M81.0 - Age-related osteoporosis without current pathological fracture, R29.890 - Loss of height TSH reflex Free T4 Today E27.8 - Other specified disorders of adrenal gland, M81.0 - Age-related osteoporosis without current pathological fracture, R29.890 - Loss of height Protein Electrophoresis, Serum Today E27.8 - Other specified disorders of adrenal gland, M81.0 - Age-related osteoporosis without current pathological fracture, R29.890 - Loss of height Immunofixation Pnl, Serum Today E27.8 - Other specified disorders of adrenal gland, M81.0 - Age-related osteoporosis without current pathological fracture, R29.890 - Loss of height Sodium, 24Hr Urine Group Today E27.8 - Other specified disorders of adrenal gland, M81.0 - Age-related osteoporosis without current pathological fracture, R29.890 - Loss of height Cortisol Random Today E27.8 - Other specified disorders of adrenal gland, M81.0 - Age-related osteoporosis without current pathological fracture, R29.890 - Loss of height Basic Metabolic Panel Today E27.8 - Other specified disorders of adrenal gland, M81.0 - Age-related osteoporosis without current pathological fracture, R29.890 - Loss of height Lutenizing Hormone Today E27.8 - Other specified disorders of adrenal gland, M81.0 - Age-related osteoporosis without current pathological fracture, R29.890 - Loss of height Sex Hormone Binding Globulin Today E27.8 - Other specified disorders of adrenal gland, M81.0 - Age-related osteoporosis without current pathological fracture, R29.890 - Loss of height Cortisol Random 09/12/24 E27.8 - Other specified disorders of adrenal gland Dexamethasone 09/12/24 E27.8 - Other specified disorders of adrenal gland XR thoracic spine 2V Today M81.0 - Age-related osteoporosis without current pathological fracture, R29.890 - Loss of height Calcium Today E27.8 - Other specified disorders of adrenal gland, M81.0 - Age- related osteoporosis without current pathological fracture, R29.890 - Loss of height Alkaline Phosphatase Bone Today E27.8 - Other specified disorders of adrenal gland, M81.0 - Age-related osteoporosis without current pathological fracture, R29.890 - Loss of height Parathyroid Hormone Intact Today E27.8 - Other specified disorders of adrenal gland, M81.0 - Age-related osteoporosis without current pathological fracture, R29.890 - Loss of height Adrenocorticotropic Hormone Today E27.8 - Other specified disorders of adrenal gland, M81.0 - Age-related osteoporosis without current pathological fracture, R29.890 - Loss of height DHEA Sulfate Today E27.8 - Other specified disorders of adrenal gland, M81.0 - Age-related osteoporosis without current pathological fracture, R29.890 - Loss of height Cortisol, Free 24Hr Urine Today E27.8 - Other specified disorders of adrenal gland, M81.0 - Age-related osteoporosis without current pathological fracture, R29.890 - Loss of height Bioavailable Testosterone Today E27.8 - Other specified disorders of adrenal gland, M81.0 - Age-related osteoporosis without current pathological fracture, R29.890 - Loss of height Testosterone, Free/Total Today E27.8 - Other specified disorders of adrenal gland, M81.0 - Age-related osteoporosis without current pathological fracture, R29.890 - Loss of height Follicle Stimulating Hormone Today E27.8 - Other specified disorders of adrenal gland, M81.0 - Age-related osteoporosis without current pathological fracture, R29.890 - Loss of height Adrenocorticotropic Hormone 09/12/24 E27.8 - Other specified disorders of adrenal gland Medications: New 2 dexamethasone Take 1 pill at 11 pm at night and do blood work at 8 AM next morning 1 mg PO ONCE 1 tab 0RF Patient Instructions: Do 24 hour urine test and same day as you hand in the urine do blood work 24 hr urine collection instructions You have been asked to collect your urine for 24 hours to assess for calcium excretion. You must choose a 24 hour period of time when you will be home. The morning of the first day, DISCARD the FIRST morning void and then note the time. You will collect every single void from then on for 24 hours. For example, if you wake up at 6am and urinate, flush down that void. You will then collect every drop of urine all day and all night through 6am the following day. You will urinate one last time at 6am for the collection. The jug of urine must be kept in the refrigerator until you bring it to the lab.You have been asked to collect your urine for 24 hours to assess for calcium excretion. You must choose a 24 hour period of time when you will be home. The morning of the first day, DISCARD the FIRST morning void and then note the time. You will collect every single void from then on for 24 hours. For example, if you wake up at 6am and urinate, flush down that void. You will then collect every drop of urine all day and all night through 6am the following day. You will urinate one last time at 6am for the collection. The jug of urine must be kept in the refrigerator until you bring it to the lab. On a separate day later next week do dexamethasone suppression test Dexamethasone suppression test I would like you to do a dexamethasone suppression test to rule out Cushings syndrome. You will take a 1 mg pill of dexamethasone at 11 PM and then have a blood draw for cortisol at 8AM the next morning. It is important to make sure you take the dexamethasone at 11 PM and have the blood test as close to 8AM as possible. Do the Xrays of your back , someone will call to schedule this Continue calcium and vitamin D through your PEG tube Coding Level of Care Code New Pt Level 5 (13476) Diagnoses Height loss R29.890 Age-related osteoporosis without current pathological fracture M81.0 Osteoporosis type: age-related Presence of current pathological fracture: without current pathological fracture Adrenal hyperplasia E27.8 Time Spent (min) 60
--- OUTSIDE RECORDS SUMMARY | 2024-09-05 09:12 | XMS_ITS | Continuity of Care Document ---
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 Other Unknown Unavaila ble DUFFY, VICKIE Personal Relationship Unknown Unava ilable DUFFY, VICKIE Personal Relationship Unknown Unava ilable DUFFY, VICKIE Personal Relationship Unknown Unava ilable DUFFY, VICKIE Personal Relationship Unknown Unava ilable DUFFY, VICKIE Personal Relationship Unknown Unava ilable DUFFY, VICKIE Personal Relationship Unknown Unava ilable DUFFY, VICKIE Personal Relationship Unknown Unava ilable DUFFY, VICKIE Personal Relationship Unknown Unava ilable DUFFY, VICKIE Personal Relationship Unknown Unava ilable YORK, GRACIELA Other Unknown Unavailable DUFFY, ZULLY sibling Unknown Unavailable DUFFY, VICKIE Personal Relationship Unknown Unava ilable DUFFY, VICKIE Personal Relationship Unknown Unava ilable DUFFY, VICKIE Personal Relationship Unknown Unava ilable DUFFY, VICKIE Personal Relationship Unknown Unava ilable GARCIA, ISAAC sibling Unknown Unavailable DUFFY, VICKIE Personal Relationship Unknown Unava ilable DUFFY, VICKIE Personal Relationship Unknown Unava ilable DUFFY, VICKIE Personal Relationship Unknown Unava ilable DUFFY, VICKIE Personal Relationship Unknown Unava ilable DUFFY, VICKIE Personal Relationship Unknown Unava ilable DUFFY, VICKIE Personal Relationship Unknown Unava ilable DUFFY, VICKIE Personal Relationship Unknown Unava ilable Care Team Providers Care Manager Operations Research Name Role Phone Tatiana Garrido MD Primary Care Physician Encounter 06/15/24 - 08/28/24 [facility] [address] [place] [address]- Discharge Disposition: CLIENT NO LONGER REQUIRES SKILLED CARE Encounter Type: Disch [facility] Allergies, Adverse Reactions, Alerts Substance Criticality Severity Reaction Reaction Severity Status codeine 1 Rash Active ibuprofen hives Active penicillins Active Tylox Rash Active Ultram stomach ache Active Bactrim Active Reglan Soft tissue swelling Active HYDROcodone Active PriLOSEC Resolved 1Patient tolerated morphine Medications acetaminophen 500 mg oral tablet 1 tablet = 500 mg, By Mouth, 2 times a day, PRN as needed for fever, 0 Refills, Maintenance, 06/25/24 8:25:00 AM EDT, Tablet, Partial fill upon patient request if the prescription is for a schedule II opioid drug. Start Date: 06/25/24 Status: Ordered Repeat number: 1 apixaban 5 mg oral tablet = 5 mg, G Tube, 2 times a day, # 60 each, 0 Refills, Maintenance, 06/27/24 2:49:00 PM EDT, Tablet, [facility], Partial fill upon patient request if the prescription is for a schedule IIopioid drug., 162, cm, 06/27/24 11:42:00 EDT, Height, 54.8, kg, 06/25/24 18:14:00 EDT, Dry Weight Start Date: 06/27/24 Status: Ordered Quantity: 60.0 Unit: each Repeat number: 1 Biktarvy oral tablet 1 tablet, By Mouth, Daily, # 30 tablet, 0 Refills, Maintenance, 06/10/24 3:56:00 AM EDT, Tablet, Partial fill upon patient request if the prescription is for a schedule II opioid drug. Start Date: 06/10/24 Status: Ordered Quantity: 30.0 Unit: tablet Repeat number: 1 brimonidine-timolol 0.2%-0.5% ophthalmic solution 1 drops, Eyes, Both, Every 12 hours, # 10 mL, 0 Refills, Maintenance, 06/10/24 3:58:00 AM EDT, Solution, Partial fill upon patient request if the prescription is for a schedule II opioid drug. Start Date: 06/10/24 Status: Ordered Quantity: 10.0 Unit: mL Repeat number: 1 clonazePAM 1 mg oral tablet 1 tablet = 1 mg, By Mouth, Daily at bedtime, 0 Refills, Maintenance, 06/10/24 3:56:00 AM EDT, Tablet, Partial fill upon patient request if the prescription is for a schedule II opioid drug. Start Date: 06/10/24 Status: Ordered Repeat number: 1 [employer] CALCIUM 600MG-D3 20MCG TAB [facility] CALCIUM 600MG-D3 20MCG TAB, TAKE 1 TABLET BY MOUTH AT NOON AND 1 TABLET IN THE EVENING. Start Date: 06/25/24 Status: Ordered Repeat number: 1 ferrous gluconate 324 mg oral tablet 1 tablet = 324 mg, By Mouth, 2 times a day, 0 Refills, Maintenance, 06/25/24 8:22:00 AM EDT, Tablet, Partial fill upon patient request if the prescription is for a schedule II opioid drug. Start Date: 06/25/24 Status: Ordered Repeat number: 1 gabapentin 600 mg oral tablet 1 tablet = 600 mg, By Mouth, 3 times a day, # 90 tablet, 5 Refills, Maintenance, 06/10/24 3:57:00 AMEDT, Tablet, Partial fill upon patient request if the prescription is for a schedule II opioid drug. Start Date: 06/10/24 Status: Ordered Quantity: 90.0 Unit: tablet Repeat number: 1 glycopyrrolate 1 mg oral tablet TAKE 1 TABLET (1 MG) BY MOUTH ONCE PER DAY. WILL NEED TO GIVE MED VIA G TUBE Start Date: 06/25/24 Status: Ordered Repeat number: 1 latanoprost 0.005% ophthalmic solution 1 drops, Eyes, Both, Daily at bedtime, # 3 mL, 0 Refills, Maintenance, 06/10/24 3:58:00 AM EDT, Ophth Solution, Partial fill upon patient request if the prescription is for a schedule II opioid drug. Start Date: 06/10/24 Status: Ordered Quantity: 3.0 Unit: mL Repeat number: 1 please do Modified barium swallow study on this pt and provide the report to the PCP. Diagnosis: As please do Modified barium swallow study on this pt and provide the report to the PCP. Diagnosis: Aspiration pneumonia, See Instructions, # 1 each, Refills 0, Tot. Refills 0, Maintenance, As above, 06/13/24 2:16:00 PM EDT, Supply Start Date: 06/13/24 Status: Ordered Quantity: 1.0 Unit: each Repeat number: 1 Remeron 30 mg oral tablet 2 tablet = 60 mg, By Mouth, Daily at bedtime, # 90 tablet, 0 Refills, Maintenance, 06/10/24 3:56:00 AM EDT, Tablet, Partial fill upon patient request if the prescription is for a schedule II opioid drug. Start Date: 06/10/24 Status: Ordered Quantity: 90.0 Unit: tablet Repeat number: 1 RisperDAL 3 mg oral tablet 3 mg, 1, tablet, By Mouth, Daily at bedtime, # 60 tablet, Refills 0, Maintenance, 06/10/24 3:55:00 AM EDT, Partial fill upon patient request if the prescription is for a schedule II opioid drug. Start Date: 06/10/24 Status: Ordered Quantity: 60.0 Unit: tablet Repeat number: 1 Serostim 6 mg subcutaneous injection = 6 mg, Subcutaneous Injection, Daily at bedtime, 0 Refills, Maintenance, 06/25/24 8:24:00 AM EDT, Powder, Partial fill upon patient request if the prescription is for a schedule II opioid drug. Start Date: 06/25/24 Status: Ordered Repeat number: 1 Symbicort 80mcg/4.5mcg Inhaler 2, puffs, Inhalation, 2 times a day, # 10.2 Gm, Refills 0, Tot. Refills 0, Maintenance, 06/27/24 3:26:00 PM EDT, Aerosol, Route to Pharmacy Electronically, [id number], [facility], 162, cm, 06/27/24 15:12:00 EDT, Height, 54.8, kg, 06/25/24 18:14:00 EDT, Dry Weight Start Date: 06/27/24 Status: Ordered Quantity: 10.2 Unit: g Repeat number: 1 traMADol 50 mg oral tablet 1 tablet = 50 mg, By Mouth, Every 12 hours, PRN as needed for pain, 0 Refills, Maintenance, 06/25/24 8:25:00 AM EDT, Tablet, Partial fill upon patient request if the prescription is for a schedule IIopioid drug. Start Date: 06/25/24 Status: Ordered Repeat number: 1 Ventolin HFA 108 mcg/inh inhalation aerosol with adapter INHALE 2 PUFFS BY MOUTH EVERY 6 HOURS IF NEEDED FOR WHEEZING. Start Date: 06/25/24 Status: Ordered Repeat number: 1 Vitamin C 250 mg oral tablet 1 tablet = 250 mg, By Mouth, Daily, 0 Refills, Maintenance, 06/25/24 8:29:00 AM EDT, Tablet, Partial fill upon patient request if the prescription is for a schedule II opioid drug. Start Date: 06/25/24 Status: Ordered Repeat number: 1 Problem List Condition Confirmation Course Effective Dates Status Health St atus Informant Major depressive disorder, recurrent episode, severe, without mention of psychotic behavior Confirmed 10/04/12 Active Patient Care team information Care Team Personnel Name: Vivian Fuller RN Position: [facility] RN Member Role: Primary Care Nurse Name: Tatiana Garrido MD Position: [facility] Physician - Primary Care Member Role: PCP Address: [address] [place] [address] Telecom: Name: Allison Cabrera RN Position: S RN Member Role: Primary Care Nurse Name: Sarah Felipe RN Position: S RN Member Role: Primary Care Nurse Name: Kevan De La Paz RN Position: [facility] RN Member Role: Primary Care Nurse Name: Mariajose Daugherty RN Position: [facility] RN Member Role: Primary Care Nurse Name: Yenifer Mulligan RN Position: [facility] RN Member Role: Primary Care Nurse Care Team Related Persons Name: ISAAC GARCIA Name: KRISS JULIEN Name: ZULLY DUFFY Insurance Providers Guarantor name: VICKIE DUFFY Health Plan Information #: 1 Payer: [facility] C[facility] Member Number: NA Policy Number: NA Group Number: NA Health Plan Information #: 2 Payer: NA Member Number: NA Policy Number: NA Group Number: NA Health Plan Information #: 3 Payer: MEDICARE PART B OUTPT Member Number: NA Policy Number: NA Group Number: NA Health Plan Information #: 4 Payer: [place] Member Number: NA Policy Number: NA Group Number: NA
--- OUTSIDE RECORDS SUMMARY | 2024-09-05 09:12 | XMS_ITS | Continuity of Care Document ---
Demographics Address [address] [place] [address] Mobile Preferred Language Martiniquais Marital Status Single Scientology Affiliation Advent Race White Ethnic Group or Author Organization [facility] Address [address] [place] [address]- Support Name Relationship Address Phone DUFFY, VICKIE Personal Relationship Unknown Unava ilable DUFFY, VICKIE Personal Relationship Unknown Unava ilable DUFFY, VICKIE Personal Relationship Unknown Unava ilable DUFFY, VICKIE Personal Relationship Unknown Unava ilable 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, 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 Other Unknown Unavaila ble DUFFY, [...] VICKIE Personal Relationship Unknown Unava ilable DUFFY, IVCKIE Personal Relationship Unknown Unava ilable DUFFY, VICKIE Personal Relationship Unknown Unava ilable DUFFY, VICKIE Personal Relationship Unknown Unava ilable Care Team Providers Care Roller Presser Operator Name Role Phone Tatiana Garrido MD Primary Care Physician Encounter [facility] NBR [id number] Date(s): 07/10/24 - 08/09/24 [facility] [address] [facility] [address] [place] [address]- Encounter Type: Triage Allergies, Adverse Reactions, Alerts Substance Criticality Severity [...] Refills, Maintenance, 06/27/24 2:49:00 PM EDT, Tablet, [facility], Partial fill upon patient request if [...] PM EDT, Aerosol, Route to Pharmacy Electronically, [id number], [facility], 162, cm, 06/27/24 15:12:00 [...] Team Personnel Name: Vivian Fuller RN Position: [facility] RN Member Role: Primary Care Nurse Name: Tatiana Garrido MD Position: [facility] Physician - Primary Care Member Role: PCP Address: [address] [place] [address] Telecom: Name: Allison Cabrera RN Position: S RN Member Role: Primary Care Nurse Name: Sarah Felipe RN Position: [facility] RN Member Role: Primary Care Nurse Name: Kevan De La Paz RN Position: [facility] RN Member Role: Primary Care Nurse Name: Mariajose Daugherty RN Position: [facility] RN Member Role: Primary Care Nurse Name: Yenifer Mulligan RN Position: [facility] RN Member Role: Primary Care Nurse Care Team Related Persons Name: ISAAC GARCIA Name: KRISS JULIEN Name: ZULLY DUFFY Insurance Providers Guarantor name: VICKIE DUFFY Health Plan Information #: 1 Payer: [facility] CARE Member Number: NA Policy [...]
--- OUTSIDE RECORDS SUMMARY | 2024-09-05 09:12 | XMS_ITS ---
Demographics Address [address] [facility] [address] [place] [address] Preferred Language en Marital Status Unknown Mormonism Affiliation Unknown Race White Ethnic Group Not or Lati no Author Organization [facility] Address [address] [place] [address] Care Team Providers Care Cleaning Attendant Name Role Phone Terese Rivera Primary Care Provider Pepe Dangelo Unavailable [phone] REASON FOR VISIT Pt no show Encounters Encounter Location Date Provider Diagnosis [facility] [address] [place] [address] 12/14/2023 Pepe Stephenson PLAN OF TREATMENT Next Appt Details Provider Name:Pepe Stephenson , 10/09/2024 09:40:00 AM, [address], [address], [place], [address],
--- OUTSIDE RECORDS SUMMARY | 2024-09-05 09:12 | XMS_ITS | Data Portability ---
Author Organization [facility] [employer] Address [address] [place] [phone] Care Team Providers Care Machine Setter Supervisor Name Role Phone HIM [facility] OTHER [facility] OTHER Assessment No assessment recorded. Plan of Treatment Reminders Order Date Submit Date Provider Last Modified By Organization Details Last Modified Time Details Appointments None record ed. Lab None record ed. Referral None record ed. Procedures None record ed. Surgeries None record ed. Imaging None record ed. Medication Orders None record ed. Patient TargetsNo targets recorded. Patient InstructionsNo instructions recorded. Reason for Referral None Reported. Medical Equipment None Reported. Allergies Allergen ID Allergen Name Allergen Category Reaction Reaction Severity Criticality Documentation Date Start Date Code Code System Note Provider Name and Address Organization Details Recorded Time 7354 acetamino phen medicatio n Not available Not available Not available 07/08/2024 161 RxNorm Not Available [facility] - production 03:36:50 7355 ibuprofen medicatio n Not available Not available Not available 07/08/2024 5640 RxNorm Not Available [facility] - production 4 03:36:50 7356 levofloxa sam medicatio n Not available Not available Not available 07/08/2024 66857 RxNorm Not Available [facility] - production 4 03:36:50 7357 metoclopr amide Not available Not available Not available Not available 07/08/2024 6915 RxNorm Not Available [facility] - production 03:36:50 Medications Name Sig Start Date Stop Date Status Note LastModified by Organization Details LastModified Time celecoxib 200 mg capsule TAKE 1 CAPSULE BY MOUTH TWICE A DAY active Not Available Not Available No t Available latanoprost 0.005 % eye drops INSTILL 1 DROP INTO BOTH EYES AT BEDTIME active Not Available Not Available N ot Available fluconazole 100 mg tablet active Not Available Not Available Not Available clotrimazole 10 mg klaudia DISSOLVE 1 TABLET IN MOUTH 5 TIMES PER DAY FOR 10 DAYS active Not Available Not Available No t Available nystatin 100,000 unit/mL oral suspension SWISH AND SPIT 5ML BY MOUTH 4 TIMES A DAY X 14 DAYS active Not Available Not Available No t Available Serostim 6 mg subcutaneous solution active Not Available Not Available Not Available prednisone 10 mg tablet TAKE 1 TABLET VIA FEEDING TUBE EVERY DAY active Not Available Not Available No t Available gabapentin 600 mg tablet TAKE 1 TABLET BY MOUTH 3 TIMES DAILY. active Not Available Not Available No t Available albuterol sulfate 2.5 mg/3 mL (0.083 %) solution for nebulization INHALE 3 MILLILITER BY NEBULIZATIO N ROUTE 3 TIMES EVERY DAY NEEDED FOR ASTHMA active Not Available Not Available No t Available clonazepam 1 mg tablet TAKE 1 TABLET BY MOUTH EVERY DAY active Not Available Not Available No t Available clindamycin HCl 150 mg capsule TAKE FOUR (4) CAPSULES OF 150 MG CLINDAMYCIN 1 HOUR BEFORE DENTAL PROCEDURE active Not Available Not Available No t Available metronidazol e 500 mg tablet TAKE 1 TABLET VIA FEEDING TUBE 2 TIMES A DAY FOR 7 DAYS active Not Available Not Available N ot Available amlodipine 5 mg tablet TAKE 1 TABLET BY MOUTH EVERY DAY active Not Available Not Available No t Available tramadol 50 mg tablet GIVE 1 TABLET BY PER G TUBE ROUTE EVERY 12 HOURS IF NEEDED FOR SEVERE PAIN FOR UP TO 14 DAYS. active Not Available Not Available No t Available acetaminophe n 500 mg tablet TAKE 1 TABLET BY MOUTH TWICE A DAY NEEDED FOR PAIN active Not Available Not Available No t Available risperidone 3 mg tablet TAKE 1 TABLET BY VIA G-TUBE ROUTE AT BEDTIME. active Not Available Not Available No t Available risperidone 2 mg tablet TAKE 1 TABLET BY MOUTH AT BEDTIME active Not Available Not Available No t Available fluconazole 10 mg/mL oral suspension TAKE 10MLS VIA G0TUBE ONCE DAILY FOR 14 DAYS active Not Available Not Available Not Available mirtazapine 30 mg tablet TAKE 2 TABLETS BY MOUTH AT BEDTIME active Not Available Not Available No t Available Banophen 25 mg tablet TAKE 2 TABLETS BY MOUTH AT BEDTIME active Not Available Not Available No t Available sulfamethoxa zole 200 mg-trimethop rim 40 mg/5 mL oral suspension GIVE 20ML BY MOUTH EVERY 12 HOURS VIA G-TUBE active Not Available Not Available No t Available propranolol ER 120 mg capsule,24 hr,extended release TAKE 1 CAPSULE BY MOUTH EVERY DAY active Not Available Not Available No t Available cefuroxime axetil 500 mg tablet TAKE 1 TABLET VIA FEEDING TUBE EVERY 12 HOURS FOR 7 DAYS active Not Available Not Available N ot Available ipratropium bromide 21 mcg (0.03 %) nasal spray USE 2 SPRAYS UNDER TONGUE AT NIGHT FOR SIALORRHEA active Not Available Not Available N ot Available naproxen 500 mg tablet TAKE 1 TABLET BY MOUTH TWICE A DAY NEEDED FOR PAIN active Not Available Not Available No t Available Ventolin HFA 90 mcg/actuatio n aerosol inhaler INHALE 2 PUFFS EVERY 6 HOURS IF NEEDED FOR WHEEZING. active Not Available Not Available No t Available chlorhexidin e gluconate 0.12 % mouthwash SWISH 15 ML IN THE MOUTH OR THROAT FOR 30 SECONDS THEN SPIT OUT EVERY DAY NEEDED FOR UP TO 14 DAYS active Not Available Not Available No t Available Advair HFA 115 mcg-21 mcg/actuatio n aerosol inhaler PLEASE SEE ATTACHED FOR DETAILED DIRECTIONS active Not Available Not Available N ot Available Advair HFA 230 mcg-21 mcg/actuatio n aerosol inhaler PLEASE SEE ATTACHED FOR DETAILED DIRECTIONS active Not Available Not Available N ot Available ferrous gluconate 324 mg (38 mg iron) tablet TAKE 1 TABLET (324 MG) BY MOUTH 2 TIMES DAILY. active Not Available Not Available No t Available Chest Congestion Relief 100 mg/5 mL oral liquid TAKE 10 ML BY MOUTH THREE TIMES DAILY NEEDED FOR COUGH active Not Available Not Available No t Available brimonidine 0.2 %-timolol 0.5 % eye drops INSTILL 1 DROP INTO BOTH EYES TWICE A DAY active Not Available Not Available Not Available Metamucil (with sugar) 3.4 gram/12 gram oral powder TAKE 5.12 G (3 G OF FIBER) BY MOUTH 2 TIMES DAILY. active Not Available Not Available No t Available calcium 600 mg (as carbonate)-v itamin D3 20 mcg (800 unit) tablet TAKE 1 TABLET BY MOUTH AT NOON AND 1 TABLET IN THE EVENING. active Not Available Not Available No t Available Biktarvy 50 mg-200 mg-25 mg tablet TAKE 1 TABLET BY MOUTH EVERY DAY FOR 30 DAYS active Not Available Not Available No t Available Vitals Date Recorded Respiratory rate Body temperature Heart rate Oxygen saturation Oxygen saturation in Arterial blood by Pulse oximetry Systolic blood pressure Diastolic blood pressure Provider Name and Address Organization Details Last Updated DateTime 4 16 /min 98.6 [degF] 52 /min 95 % 95 % 98 mm[Hg] 56 mm[Hg] Not Available [facility] - production 16:50:48 Social History None recorded. Functional Status None recorded. Mental Status None recorded. Family History Nothing Reported. Medical History No medical history recorded. Past Encounters Encounter ID Performer Location Encounter Start Date Encounter Closed Date Diagnosis/Indication Diagnosis SNOMED-CT Code Diagnosis ICD10 Code [id number] ERLINDA HOLLIDAY MD Main - [facility] [address] [place] [phone] 03/06/2024 16:50:44 03/07/2024 17:38:50 Lethargy 508384627 R53.83 Health Concerns Section Related Observation LastModified by Organization Detai ls LastModified Time None Recorded Concern Status LastModified by Organization Details LastModified Time None Recorded Advance Directives Directive None Recorded Payers Encounter Date Sequence Insurance Name Policy Number Policy Perry Covered Member ID Perry Member ID Guarantor Name 03/06/2024 1 [facility] - DOS ON OR AFTER 2022 - DUAL ELIGIBLE - [facility] OPTIONS AND ONE CARE (MEDICARE REPLACEMENT/ADV ANTAGE - HMO) [facility] Juan David [id number] [facility] Notes Date Note Type Note Provider Name and Address Organization Details Recorded Time 03/06/2024 text/html HPI: HX: Asthma, HTN, Hep C, Seizures, Parkinsons. Dysphagia, Peg tubeHome evaluation of patient with complaints of headache and body aches with sore throat for two days. Pain not relieved per patient with Tylenol though listed as allergy. ................. ................. ................. ................. ................. ................. ................. ................. ..... [facility] Nurse Triage Notes (Kelsi Marshall): Comments: [facility] RN DID NOT NEED further info ................. ................. ................. ................. ................. ................. ................. ................. ..... Naphthalene Operator Note From Francisco Ley: Dispatched to above address for headache sore throat. On arrival patient met DC8 at the door. Initially patient denied calling for medical help or having any symptoms. DC8 confirmed patient name and address, after this patient agreed that he did request help. Patient walking unassisted with unsteady gait, AOX4, lethargic to answer, airway patent, slurred speech, pale, in no apparent distress, appears cachexic. Patient states he is having a headache and sore throat for the last couple days. Patient denies N/V/D fever chills cough, abdominal pain but does endorse feeling faint. Patients vital signs checked. Patient found to have a weak slow radial pulse with HR between 42-55. BP also low 98/52 with difficulty auscultating. Patient is having trouble keeping focus on current situation, poor affect, lethargic. [facility] contacted, spoke with Dr. Holliday, advised of patient complaints and exam findings. [facility] agreed further evaluation in the ER is necessary for this patient. Patient agreed to this. Patients neighbor who assists patient arrived to check on him. She reports this doesn't seem like his normal mentation but cannot be sure. 911 called. [facility] responded. Verbal report given to [facility] Naphthalene Operator. [facility] outsole cementer machine took over patient care. Ct8 clear. EOR. ................. ................. ................. ................. ................. ................. ................. ................. ..... Disposition: Shahzad HOLLIDAY MD [address] [facility],[address], [place], [address], LYNN - KEERTHI DUBOSE 03/06/2024 18:02:19
--- OUTSIDE RECORDS SUMMARY | 2024-09-05 09:12 | XMS_ITS ---
Demographics Address [address] [place] [address] Preferred Language en Marital Status Unknown Baptist Affiliation Unknown Race White Ethnic Group Not or Lati no Author Organization [facility] Address [address] [place] [address] Care Team Providers Care Splicer Machine Operator Name Role Phone Terese Rivera Primary Care Provider Pepe Dangelo Unavailable [phone] REASON FOR VISIT Patient presents today for a colon screening MEDICATIONS Medication SIG (Take, Route, Frequency, Duration) [...] ve Encounters Encounter Location Date Provider Diagnosis [facility] [address] [place] [address] 12/14/2023 Pepe Stephenson PLAN OF TREATMENT Next Appt Details Provider Name:Pepe Stephenson , 10/09/2024 09:40:00 AM, [address], [address], [place], [address],
--- OUTSIDE RECORDS SUMMARY | 2024-09-05 09:13 | XMS_ITS ---
Demographics Address [address] [address] [place] [address] Preferred Language en Marital Status Unknown Scientology Affiliation Unknown Race White Ethnic Group Not or Lati no Author Organization [facility] Address [address] [place] [address] Care Team Providers Care Atm Technician Name Role Phone Terese Rivera Primary Care Provider Pepe Dangelo [phone] Encounters Encounter Location Date Provider Diagnosis [facility] [address] [place] [address] 08/21/2023 Pepe Stephenson PLAN OF TREATMENT Next Appt Details Provider Name:Pepe Stephenson , 10/09/2024 09:40:00 AM, [address], [address], [place], [address],
--- OUTSIDE RECORDS SUMMARY | 2024-09-05 09:13 | XMS_ITS | Patient Health Record ---
Demographics Address [address] [place] [address] Preferred Language en Marital Status Unknown Congregation Affiliation Unknown Race White Ethnic Group Not or Lati no Author Organization [facility] Address [address] [place] [address] Care Team Providers Care Dynamics Ax Consultant Name Role Phone Terese Rivera Primary Care Provider Pepe Dangelo Unavailable [phone] ALLERGIES Allergen (clinical drug ingredient) Drug/Non Drug Allergy documented on EMR Reaction Allergy Type Onset Date Status Motrin Unknown Drug Allergy Active codeine Codeine Sulfate Unknown Drug Allergy A ctive REASON FOR REFERRAL No Information MEDICATIONS Medication SIG (Take, Route, Frequency, Duration) Notes Start Date End Date Status NexIUM 40mg 09/10/2024 09/10/2024 Active Xanax 09/10/2024 09/10/2024 Active Atripla 09/10/2024 09/10/2024 Active Dilantin 100 MG 1 capsule Orally TID for 30 day(s) Active Xanax 2mg BID Active Colyte with Flavor Packs 227.1 GM as directed Orally as directed for 1 day(s) 02/26/2013 Active KlonoPIN 2 MG 1 tablet Orally TID Active Aleve 09/10/2024 09/10/2024 Active Aspirin 325mg 09/10/2024 09/10/2024 Acti ve Multi Vitamin/Minerals 09/10/20242024 Active SOCIAL HISTORY Sex Assigned At : Social History Observation Description Sex Assigned At Unknown PROBLEMS Problem Type ICD Code Onset Dates Problem Status W/U Status Risk SNOMED Code Notes Problem Blood in stool (578.1) Active confirmed Blood in stool (231032600) Problem Constipation (564.00) Active confirmed Constipation (72971334) Problem GERD (gastroesophage al reflux disease) (530.81) Active confirmed Gastroesophagea l reflux disease (929549446) Problem Dysphagia (R13.10) Active confirmed Dysphagia (43266143) Problem Anorexia (R63.0) Active confirmed Anorexia (29346459) Problem Unspecified protein-calorie malnutrition (E46) Active confirmed Protein calorie malnutrition (495037281) Encounters Encounter Location Date Provider Diagnosis [facility] [address] [place] [address] 12/14/2023 Pepe Stephenson [facility] [address] [place] [address] 12/14/2023 Pepe Stephenson PLAN OF TREATMENT Future Test Test Name Order Date UPPER GI ENDOSCOPY 02/26/2013 COLONOSCOPY 02/26/2013 Next Appt Details Provider Name:Pepe Stephenson , 10/09/2024 09:40:00 AM, [address], [address], [place], [address], Insurance Providers Payer Name Payer Address Payer Phone Subscriber Number Group Number Insured Name Patient Relationship to Insured Coverage Start Date Coverage End Date [facility] [address] Attn Claims [place] Solorzano [id number] [facility] Self - patient is the insured MEDICAID OF [facility] [address] [place] [address] [id number] [facility] Self - patient is the insured MEDICAL (GENERAL) HISTORY Medical History History ICD Code seizures kidney stones Denies ID,DM,CVA,renal disease HIV infection since age 23-[address] e[address]-reports neg. hepatitis serologies GERD Mild asthma-Albuterol prn Anxiety Fibromyalgia Surgical History Surgery Date(Month/Year) hemorrhoidectomy 2004 Eye surgery as a child
--- OUTSIDE RECORDS SUMMARY | 2024-09-05 09:13 | XMS_ITS | Continuity of Care Document ---
Author Organization [facility], Main Office Address [address] [place] [address] Assessment No assessment recorded. Plan of Treatment Reminders Order Date Submit Date Provider Last Modified By Organization Details Last Modified Time Details Appointments RESEARCH FOLLOW UP 2024 11:[address] MD Not available Not available Not available Lab None recorded . Referral None recorded . Procedures None recorded . Surgeries None recorded . Imaging electroc ardiogra m 2023 024 [facility], [address] [place] [address], [phone], 07/15/2024 15:47:38 Medication Orders None recorded . Patient TargetsNo targets recorded. Patient InstructionsNo instructions recorded. Reason for Referral None Reported. Results Created Date Observation Date Name Description Value Unit Range Abnormal Flag Note LastModifiedBy Organization Detail LastModifiedTime 06/18/2006/04/2024 US, abdom en, compl ete No observ ation record ed. [email or web address] [facility], [place], [id number], 06/18/2024 11:12:25 07/15/2007/15/2024 elect rocar diogr am No observ ation record ed. [facility] Main Office [address] [place] [address], [phone], 07/15/2024 17:12:05 07/17/20 elect rocar diogr am No observ ation record ed. [email or web address] Main Office [address] [place] [address], [phone], 07/17/2024 14:15:04 Result Notes None recorded. Problems Name Problem SNOMED Code Status Onset Date Resolution Date Notes Provider Name and Address Organization Details Recorded Time Asthma [id number] Active 2006 Asthma; snomeddesc ription: Asthma; Report Immunity to Registry: Yes; Asthma; Report Immunity to Registry: Yes; ReasonDate : 10/13/2019 ; ; Start Date : 10/13/2019 Asthma; snomeddesc ription: Asthma; Report Immunity to Registry: Yes; Not Available [facility] 4 06:58:53 Male hypogonad ism 26221538 Active 2012 Male hypogonadi sm; snomeddesc ription: Male hypogonadi sm; Report Immunity to Registry: Yes; Not Available [facility] 4 06:58:53 Diarrhea 60299167 Active 2006 Diarrhea; snomeddesc ription: Diarrhea; Report Immunity to Registry: Yes; Diarrhea, unspecifie d; snomeddesc ription: Diarrhea; Report Immunity to Registry: Yes; Not Available [facility] 4 06:58:53 Substance abuse 89301023 Active 2006 Substance abuse; snomeddesc ription: Substance abuse; Report Immunity to Registry: Yes; Notes: opiate/suad jolene/benzo ; Not Available [facility] 4 06:58:53 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 Human immunodefi ciency virus [HIV] disease; snomeddesc ription: Human immunodefi ciency virus infection; Report Immunity to Registry: Yes; Human immunodefi ciency virus infection; snomeddesc ription: Human immunodefi ciency virus infection; Report Immunity to Registry: Yes; Not Available [facility] 4 06:58:53 Steatosis of liver 926449305 Active 2006 Steatosis of liver; snomeddesc ription: Steatosis of liver; Report Immunity to Registry: Yes; Notes: u/s 2021; Fatty (change of) liver, not elsewhere classified ; snomeddesc ription: Steatosis of liver; Report Immunity to Registry: Yes; Notes: u/s 2021; Not Available [facility] 4 06:58:53 Herpesvir us infection 49868224 Active 2009 Herpesvira l infection, unspecifie d; snomeddesc ription: Herpes simplex; Report Immunity to Registry: Yes; Notes: HSV 1 pos serology; HSV 2 neg serology; Not Available [facility] 4 06:58:53 Fibromyos itis 90846877 Active 2006 Myalgia and myositis, unspecifie d; snomeddesc ription: Fibromyalg ia; Report Immunity to Registry: Yes; Notes: Chronic pain multiple/c hronic back pain; Not Available [facility] 4 06:58:53 Herpes simplex 52824462 Active 2009 Herpes simplex; snomeddesc ription: Herpes simplex; Report Immunity to Registry: Yes; Notes: HSV 1 pos serology; HSV 2 neg serology; Not Available [facility] 4 06:58:54 Kidney stone 62603668 Active 2001 Calculus of kidney; snomeddesc ription: Kidney stone; Report Immunity to Registry: Yes; Kidney stone; snomeddesc ription: Kidney stone; Report Immunity to Registry: Yes; Not Available [facility] 4 06:58:54 History of calculus of kidney 686977940 Active 2001 History of calculus of kidney; snomeddesc ription: History of calculus of kidney; Report Immunity to Registry: Yes; Not Available [facility] 4 06:58:54 Type B viral hepatitis 22950750 Active 2006 Type B viral hepatitis; snomeddesc ription: Type B viral hepatitis; Report Immunity to Registry: Yes; Notes: core ab pos; s ag neg; s ab neg HBV vL nondetecte d 2016; 2017; Not Available [facility] 4 06:58:54 Hyperplas ia of prostate 957167365 Active 2014 Hyperplasi a of prostate, unspecifie d, without urinary obstructio n and other lower urinary symptoms (LUTS); snomeddesc ription: Hyperplasi a of prostate; Report Immunity to Registry: Yes; Hyperplas ia of prostate; snomeddesc ription: Hyperplasi a of prostate; Report Immunity to Registry: Yes; Not Available [facility] 4 06:58:54 Anxiety 66296949 Active 1996 Anxiety; snomeddesc ription: Anxiety; Report Immunity to Registry: Yes; Not Available [facility] 4 06:58:54 Testicula r hypofunct ion 891325991 Active 2012 Other testicular hypofuncti on; snomeddesc ription: Male hypogonadi sm; Report Immunity to Registry: Yes; Not Available [facility] 4 06:58:54 Seasonal allergic rhinitis 165791136 Active 2012 Other seasonal allergic rhinitis; snomeddesc ription: Seasonal allergy; Report Immunity to Registry: Yes; Notes: hx nasal congestion ; Not Available [facility] 4 06:58:54 Onychomyc osis due to dermatoph yte 384393904 Active 2017 Tinea unguium; snomeddesc ription: Onychomyco sis; Report Immunity to Registry: Yes; Notes: feet digits; Not Available [facility] 4 06:58:55 Sleep apnea 02233772 Active 1999 Sleep apnea; snomeddesc ription: Sleep apnea; Report Immunity to Registry: Yes; Unspecifi ed sleep apnea; snomeddesc ription: Sleep apnea; Report Immunity to Registry: Yes; Not Available [facility] 4 06:58:55 Psychoact marj substance abuse 48571269 Active 2006 Other psychoacti ve substance abuse, uncomplica lucho; snomeddesc ription: Substance abuse; Report Immunity to Registry: Yes; Notes: opiate/suda jolene/benzo ; Not Available [facility] 4 06:58:55 Viral hepatitis B without hepatic coma 300524756 Active 2006 Unspecifie d viral hepatitis B without hepatic coma; snomeddesc ription: Type B viral hepatitis; Report Immunity to Registry: Yes; Notes: core ab pos; s ag neg; s ab neg HBV vL nondetecte d 2016; 2017; Not Available [facility] 4 06:58:55 Blood chemistry outside reference range 560602427 Active 2012 Other specified abnormal findings of blood chemistry; snomeddesc ription: Decreased testostero ne level; Report Immunity to Registry: Yes; Notes: hypogoandi sm; Not Available [facility] 4 06:58:55 Arthritis 0761456 Active 1998 Arthritis; snomeddesc ription: Arthritis; Report Immunity to Registry: Yes; Notes: Osteoatrth ris multiple; Not Available [facility] 4 06:58:55 History of urinary stone 040755533 Active 2001 Personal history of urinary calculi; snomeddesc ription: History of calculus of kidney; Report Immunity to Registry: Yes; Not Available [facility] 4 06:58:56 Fibromyal mika 252229687 Active 2006 Fibromyalg ia; snomeddesc ription: Fibromyalg ia; Report Immunity to Registry: Yes; Notes: Chronic pain multiple/c hronic back pain; Not Available [facility] 4 06:58:56 Lyme disease 94293541 Active 2017 Lyme disease; Report Immunity to Registry: Yes; Notes: tx cefuroxime x14 d (hx all Doxy); Not Available [facility] 4 06:58:56 Headache 85413314 Active 2008 Headache; snomeddesc ription: Headache; Report Immunity to Registry: Yes; Notes: migraine; Headache; snomeddesc ription: Headache; Report Immunity to Registry: Yes; Notes: migraine; Not Available [facility] 4 06:58:56 Hypertens marj disorder 77629007 Active 2017 Hypertensi ve disorder; snomeddesc ription: Hypertensi ve disorder; Report Immunity to Registry: Yes; Not Available [facility] 4 06:58:56 Arthropat hy 478218103 Active 1998 Arthropath y, unspecifie d, site unspecifie d; snomeddesc ription: Arthritis; Report Immunity to Registry: Yes; Notes: Osteoatrth ris multiple; Not Available [facility] 4 06:58:56 Essential hypertens ion 92760729 Active 2017 Essential (primary) hypertensi on; snomeddesc ription: Hypertensi ve disorder; Report Immunity to Registry: Yes; Not Available [facility] 4 06:58:57 Testoster one level below reference range 491423637 Active 2012 Decreased testostero ne level; snomeddesc ription: Decreased testostero ne level; Report Immunity to Registry: Yes; Notes: hypogoandi sm; Not Available [facility] 4 06:58:57 Insomnia 738112324 Active 1996 Insomnia; Report Immunity to Registry: Yes; Not Available [facility] 4 06:58:57 Anxiety state 435206613 Active 1996 Anxiety state, unspecifie d; snomeddesc ription: Anxiety; Report Immunity to Registry: Yes; Not Available [facility] 4 06:58:57 Onychomyc osis 837927499 Active 2017 Onychomyco sis; snomeddesc ription: Onychomyco sis; Report Immunity to Registry: Yes; Notes: feet digits; Not Available [facility] 4 06:58:57 Chronic hepatitis C 028747694 Active 2006 Chronic hepatitis C without mention of hepatic coma; snomeddesc ription: Chronic hepatitis C; Report Immunity to Registry: Yes; Notes: F0 2012; CC IL28; g1a EOT 10/14 s/p 24 weeks tx Ribapak 1200mg po qd and Sovaldi 24 weeks SVR 4/15 HCV VL neg 2015;2017; 12/2021 F2 ; Chronic hepatitis C; snomeddesc ription: Chronic hepatitis C; Report Immunity to Registry: Yes; Notes: F0 2011; CC IL28; g1a EOT 10/12/14 s/p 24 weeks tx Ribapak 1200mg po qd and Sovaldi 24 weeks SVR 4/15 HCV VL neg 2015;2017; 12/2021 F2 ; Not Available [facility] 4 06:58:57 Depressiv e disorder 49709353 Active 1996 Depressive disorder, not elsewhere classified ; snomeddesc ription: Depressive disorder; Report Immunity to Registry: Yes; Depressiv e disorder; snomeddesc ription: Depressive disorder; Report Immunity to Registry: Yes; Not Available [facility] 4 06:58:58 Seasonal allergy 644812742 Active 2012 Seasonal allergy; snomeddesc ription: Seasonal allergy; Report Immunity to Registry: Yes; Notes: hx nasal congestion ; Not Available [facility] 4 06:58:58 Loss of appetite 63633945 Active 2012 Anorexia; snomeddesc ription: Loss of appetite; Report Immunity to Registry: Yes; Loss of appetite; snomeddesc ription: Loss of appetite; Report Immunity to Registry: Yes; Not Available [facility] 4 06:58:58 Seizure 46679543 Active 2000 Seizure; snomeddesc ription: Seizure; Report Immunity to Registry: Yes; ReasonDate : 10/13/2019 ; ; Start Date : 10/13/2019 Seizure; snomeddesc ription: Seizure; Report Immunity to Registry: Yes; Unspecifi ed convulsion s; snomeddesc ription: Seizure; Report Immunity to Registry: Yes; ReasonDate : 10/13/2019 ; ; Start Date : 10/13/2019 Unspecifi ed convulsion s; snomeddesc ription: Seizure; Report Immunity to Registry: Yes; Not Available [facility] 4 06:58:58 Problem Notes None recorded. Procedures Surgical History None recorded. Imaging Results Imaging Date Name Status LastModified by Organization Details LastModified Time 07/15/2024 [facility] Main [address], [phone], 07/15/2024 17:12:05 Procedure Notes None recorded. Medical Equipment None Reported. Allergies Allergen ID Allergen Name Allergen Category Reaction Reaction Severity Criticality Documentation Date Start Date Code Code System Note Provider Name and Address Organization Details Recorded Time 714 Reglan medicatio n Not available Not available Not available 10/31/20232012 9230 RxNorm Comme nt: adver se_ev ent_t ype: 42645 8002; ; Not Available [facility] 4 06:50:47 715 Motrin medicatio n Not available Not available Not available 10/31/2023201248 8 RxNorm Comme nt: adver se_ev ent_t ype: 05768 8002; ; Not Available [facility] 4 06:50:47 716 doxycycli ne Not available Not available Not available Not available 10/31/20232017 3640 RxNorm Comme nt: telma se_ev ent_t ype: 47801 8002; ; Not Available [facility] 4 06:50:47 Medications Name Sig Start Date Stop Date Status Note LastModified by Organization Details LastModified Time multivita min tablet Multiple Vitamins Quantity : 30; 3 refill(s ) 12/01 completed Frequenc y: qd; VACCINE_ IND: no; SU_FULL_ NAME: Cheryl scales; Not Available Not Available Not Available quetiapin e 25 mg tablet FUMARATE 25 MG TABS; Quantity : 21; Duration : 7; 0 refill(s ) 10/11 completed Duration : 7; VACCINE_ IND: no; Not Available Not Available Not Available celecoxib 200 mg capsule TAKE 1 CAPSULE BY MOUTH TWICE A DAY active Not Available Not Available No t Available glycopyrr olate 1 mg tablet TAKE 1 TABLET (1 MG) BY MOUTH ONCE PER DAY. WILL NEED TO GIVE MED VIA G TUBE active Not Available Not Available No t Available cyclobenz aprine 10 mg tablet TAB 10MG; Quantity : 15; Duration : 5; 0 refill(s ) 02/07 completed Duration : 5; VACCINE_ IND: no; Not Available Not Available Not Available latanopro st 0.005 % eye drops INSTILL 1 DROP INTO BOTH EYES AT BEDTIME active Not Available Not Available No t Available fluconazo le 100 mg tablet 100 mg Quantity : 4; Duration : 28; 0 refill(s ) active Not Available Not Available No t Available clotrimaz ole 10 mg klaudia DISSOLVE 1 TABLET (10 MG) BY MOUTH 5 (FIVE) TIMES A DAY FOR 14 DAYS. active Not Available Not Available No t Available doxycycli ne monohydra te 25 mg/5 mL oral suspensio n GIVE 20 ML BY MOUTH EVERY 12 HOURS FOR 3 DAYS. active Not Available Not Available No t Available cyanocoba keaton (vit B-12) ER 1,000 mcg tablet,ex tended release 1000 mcg Quantity : 30; 3 refill(s ) 09/25 completed Frequenc y: qd; VACCINE_ IND: no; SU_FULL_ NAME: Cheryl scales; Not Available Not Available Not Available pilocarpi ne 5 mg tablet TOME 1 TABLETA POR V A ORAL ITALO VECES AL D A FOR 30 DAYS active Not Available Not Available No t Available nystatin 100,000 unit/mL oral suspensio n 5 cc po qid swish and spit x 14 days active Not Available Not Available No t Available Serostim 6 mg subcutane ous solution RECONSTI TUTE WITH STERILE WATER DIRECTED . INJECT 6 MG UNDER THE SKIN 1 TIME A DAY AT BEDTIME. active Not Available Not Available No t Available prednison e 10 mg tablet TAKE 1 TABLET VIA FEEDING TUBE EVERY DAY active Not Available Not Available No t Available gabapenti n 600 mg tablet TAKE 1 TABLET BY MOUTH 3 TIMES DAILY. active Not Available Not Available No t Available Zyrtec-D 5 mg-120 mg tablet,ex tended release 5 mg-120 mg Quantity : 30; Duration : 30; 1 refill(s ) 10/13 completed Frequenc y: qd; Duration : 30; VACCINE_ IND: no; SU_FULL_ NAME: Cheryl scales; Not Available Not Available Not Available quetiapin e 300 mg tablet TAB 300MG; Quantity : 90; Duration : 90; 0 refill(s ) 04/28 completed Duration : 90; VACCINE_ IND: no; Not Available Not Available Not Available clindamyc in HCl 300 mg capsule 300 Quantity : 36; Duration : 12; 0 refill(s ) 09/16 completed Duration : 12; VACCINE_ IND: no; Not Available Not Available Not Available albuterol sulfate 2.5 mg/3 mL (0.083 %) solution for nebulizat ion INHALE 3 MILLILIT ER BY NEBULIZA TION ROUTE 3 TIMES EVERY DAY NEEDED FOR ASTHMA active Not Available Not Available No t Available loperamid e 2 mg capsule 2 Quantity : 30; Duration : 30; 0 refill(s ) 06/22 completed Duration : 30; VACCINE_ IND: no; Not Available Not Available Not Available trazodone 50 mg tablet 50 MG TABLET; Quantity : 60; Duration : 30; 0 refill(s ) 11/11 completed Duration : 30; VACCINE_ IND: no; Not Available Not Available Not Available Pneumovax -23 25 mcg/0.5 mL injection solution - Quantity : ; 0 refill(s ) 05/15 completed VACCINE_ IND: yes; VACCINE_ NAME: pneumoco ccal polysacc haride PPV23; SU_FULL_ NAME: Cheryl scales; Not Available Not Available Not Available Topamax 25 mg tablet 25 mg Quantity : 30; 0 refill(s ) 12/01 completed Frequenc y: qd; VACCINE_ IND: no; SU_FULL_ NAME: Cheryl scales; Not Available Not Available Not Available cefpodoxi me 200 mg tablet TOME 1 TABLETA POR V A ORAL CADA 12 HORAS POR 3 D active Not Available Not Available No t Available azithromy sam 250 mg tablet TAB 250MG; Quantity : 2; Duration : 2; 0 refill(s ) active Not Available Not Available No t Available ibuprofen 800 mg tablet TAKE 1 TABLET BY MOUTH EVERY 8 HOURS NEEDED FOR PAIN active Not Available Not Available No t Available tizanidin e 4 mg tablet 4 mg Quantity : 10; 0 refill(s ) 12/31 completed Frequenc y: qd; VACCINE_ IND: no; SU_FULL_ NAME: Cheryl scales; Not Available Not Available Not Available fluconazo le 150 mg tablet TAB 150MG; Quantity : 4; Duration : 28; 0 refill(s ) 10/26 completed Duration : 28; VACCINE_ IND: no; Not Available Not Available Not Available benzonata te 200 mg capsule PLEASE SEE ATTACHED FOR DETAILED DIRECTIO NS active Not Available Not Available No t Available valacyclo vir 1 gram tablet TAB 1GM; Quantity : 18; Duration : 6; 0 refill(s ) 05/10 completed Duration : 6; VACCINE_ IND: no; Not Available Not Available Not Available hydrocodo ne 5 mg-acetam inophen 325 mg tablet TAKE 1 TABLET BY MOUTH EVERY 4 TO 6 HOURS NEEDED FOR PAIN active Not Available Not Available No t Available enalapril maleate 20 mg tablet 20 mg Quantity : 60.000; Duration : 30; 11 refill(s ) 12/01 completed Duration : 30; VACCINE_ IND: no; Not Available Not Available Not Available ondansetr on HCl 4 mg tablet TAB 4MG; Quantity : 15; Duration : 5; 0 refill(s ) 06/22 completed Duration : 5; VACCINE_ IND: no; Not Available Not Available Not Available prednison e 20 mg tablet TAKE 2 TABLETS BY MOUTH EVERY DAY active Not Available Not Available No t Available clonazepa m 0.5 mg tablet .5 MG TABS; Quantity : 14; Duration : 7; 0 refill(s ) 04/09 completed Duration : 7; VACCINE_ IND: no; Not Available Not Available Not Available propranol ol ER 60 mg capsule,2 4 hr,extend ed release 60 Quantity : 90; Duration : 90; 0 refill(s ) 04/02 completed Duration : 90; VACCINE_ IND: no; Not Available Not Available Not Available quetiapin e 200 mg tablet TAB 200MG; Quantity : 90; Duration : 90; 0 refill(s ) 01/25 completed Duration : 90; VACCINE_ IND: no; Not Available Not Available Not Available clonazepa m 1 mg tablet TOME 1 TABLETA POR V A ORAL TODOS LOS D active Not Available Not Available No t Available cromolyn 4 % eye drops apply in affected area as needed 05/06 completed VACCINE_ IND: no; SU_FULL_ NAME: Cheryl scales; Not Available Not Available Not Available clindamyc in HCl 150 mg capsule TAKE FOUR (4) CAPSULES OF 150 MG CLINDAMY SAM 1 HOUR BEFORE DENTAL PROCEDUR E active Not Available Not Available No t Available sumatript an 50 mg tablet SUCCINAT E 50MG TABLET; Quantity : 9; Duration : 5; 0 refill(s ) 01/30 completed Duration : 5; VACCINE_ IND: no; Not Available Not Available Not Available hydroxyzi ne pamoate 50 mg capsule pamoate 50 mg Quantity : 14; Duration : 7; 0 refill(s ) 10/11 completed Duration : 7; VACCINE_ IND: no; Not Available Not Available Not Available metronida zole 500 mg tablet TAKE 1 TABLET VIA FEEDING TUBE 2 TIMES A DAY FOR 7 DAYS active Not Available Not Available No t Available Norvir 100 mg capsule 100 mg Quantity : 30; Duration : 30; 3 refill(s ) 11/12 completed Duration : 30; VACCINE_ IND: no; SU_FULL_ NAME: Cheryl scales; Not Available Not Available Not Available amlodipin e 5 mg tablet TOME 1 TABLETA POR V A ORAL TODOS LOS D active Not Available Not Available No t Available prochlorp erazine maleate 10 mg tablet 10 mg Quantity : 90; 3 refill(s ) 09/27 completed Frequenc y: tid; VACCINE_ IND: no; SU_FULL_ NAME: Cheryl scales; Not Available Not Available Not Available ciproflox acin 500 mg tablet TAB 500MG; Quantity : 14; Duration : 7; 0 refill(s ) 02/22 completed Duration : 7; VACCINE_ IND: no; Not Available Not Available Not Available omeprazol e 40 mg capsule,d elayed release 40 mg Quantity : 30; Duration : 30; 3 refill(s ) 10/26 completed Frequenc y: qd; Duration : 30; VACCINE_ IND: no; SU_FULL_ NAME: Cheryl scales; Not Available Not Available Not Available aspirin 81 mg tablet,de layed release TAB 81MG EC; Quantity : 30; Duration : 30; 0 refill(s ) 11/11 completed Duration : 30; VACCINE_ IND: no; Not Available Not Available Not Available doxycycli ne monohydra te 100 mg tablet active Not Available Not Available Not Available tramadol 50 mg tablet TOME 1 TABLETA POR V A ORAL CADA 12 HORAS PARA DOLOR CATHY CUANDO SEA NECESARI O active Not Available Not Available No t Available amitripty line 50 mg tablet TAB 50MG; Quantity : 180; Duration : 90; 0 refill(s ) 04/28 completed Duration : 90; VACCINE_ IND: no; Not Available Not Available Not Available acetamino phen 500 mg tablet TAKE 1 TABLET (500 MG) BY MOUTH EVERY 8 (EIGHT) HOURS IF NEEDED FOR MILD PAIN. active Not Available Not Available No t Available risperido ne 3 mg tablet TAKE 1 TABLET (3 MG) BY PER G TUBE ROUTE AT BEDTIME. active Not Available Not Available No t Available butalbita l-acetami nophen-ca ffeine 50 mg-325 mg-40 mg tablet TABLET; Quantity : 30; Duration : 7; 0 refill(s ) 11/26 completed Duration : 7; VACCINE_ IND: no; Not Available Not Available Not Available ketorolac 10 mg tablet TAKE 1 TABLET BY MOUTH EVERY 6 HOURS NEEDED FOR PAIN FOR 5 DAYS active Not Available Not Available No t Available risperido ne 2 mg tablet TAKE 1 TABLET BY MOUTH AT BEDTIME active Not Available Not Available No t Available oxycodone -acetamin ophen 5 mg-325 mg tablet TAB 5-325MG; Quantity : 20; Duration : 7; 0 refill(s ) 05/09 completed Duration : 7; VACCINE_ IND: no; Not Available Not Available Not Available terbinafi ne HCl 250 mg tablet TAB 250MG; Quantity : 30; Duration : 30; 0 refill(s ) 11/24 completed Duration : 30; VACCINE_ IND: no; Not Available Not Available Not Available alprazola m 0.5 mg tablet 0.5 MG TABLET; Quantity : 90; Duration : 30; 0 refill(s ) 11/23 completed Duration : 30; VACCINE_ IND: no; Not Available Not Available Not Available Claritin- D 24 Hour 10 mg-240 mg tablet,ex tended release 10 mg-240 mg Quantity : 30; 0 refill(s ) 06/25 completed Frequenc y: qd; VACCINE_ IND: no; SU_FULL_ NAME: Cheryl scales; Not Available Not Available Not Available Imodium A-D 2 mg tablet 1 tab po qd PRN for diarrhea 04/02 completed Duration : 30; VACCINE_ IND: no; SU_FULL_ NAME: Cheryl scales; Not Available Not Available Not Available tamsulosi n 0.4 mg capsule 0.4 Quantity : 5; Duration : 5; 0 refill(s ) 02/21 completed Duration : 5; VACCINE_ IND: no; Not Available Not Available Not Available linezolid 600 mg tablet TOME 1 TABLETA POR V A ORAL DOS VECES AL D A active Not Available Not Available No t Available fluconazo le 10 mg/mL oral suspensio n EDI 10 ML TUBO GASTRICO BAHMAN VEZ AL CHI X 14 SANTIAGO active Not Available Not Available No t Available ascorbic acid (vitamin C) 250 mg tablet TAKE 1 TABLET (250 MG) BY MOUTH ONCE PER DAY. active Not Available Not Available No t Available pantopraz ole 40 mg tablet,de layed release TAB 40MG; Quantity : 90; Duration : 90; 0 refill(s ) 02/22 completed Duration : 90; VACCINE_ IND: no; Not Available Not Available Not Available cyanocoba keaton (vit B-12) 1,000 mcg/mL injection solution 1000 mcg/mL Quantity : 1; 3 refill(s ) 12/01 completed Frequenc y: q1mo; VACCINE_ IND: no; SU_FULL_ NAME: Cheryl Brandonsusan scales; Not Available Not Available Not Available mirtazapi ne 30 mg tablet TAKE 2 TABLETS (60 MG) BY MOUTH AT BEDTIME. active Not Available Not Available No t Available dapsone 100 mg tablet 100 mg Quantity : 30; 3 refill(s ) 12/27 completed Frequenc y: qd; VACCINE_ IND: no; SU_FULL_ NAME: Cheryl Brandonsusan scales; Not Available Not Available Not Available oseltamiv ir 75 mg capsule TAKE ONE CAPSULE BY MOUTH EVERY 12 HOURS FOR 5 DAYS 10/13 completed Duration : 5; VACCINE_ IND: no; Not Available Not Available Not Available ferrous sulfate 325 mg (65 mg iron) tablet 325 mg Quantity : 90; 3 refill(s ) 09/25 completed Frequenc y: tid; VACCINE_ IND: no; SU_FULL_ NAME: Cheryl Martsusan scales; Not Available Not Available Not Available Banophen 25 mg tablet TAKE 1-2 TABS BY MOUTH ONCE DAILY NEEDED FOR ITCHINES S. active Not Available Not Available No t Available ibuprofen 400 mg tablet TAB 400MG; Quantity : 60; Duration : 15; 0 refill(s ) 05/09 completed Duration : 15; VACCINE_ IND: no; Not Available Not Available Not Available benztropi ne 1 mg tablet TOME 1 TABLETA POR V A ORAL DOS VECES AL D A active Not Available Not Available No t Available sulfameth oxazole 200 mg-trimet hoprim 40 mg/5 mL oral suspensio n 20ml q 12 hrs G tube x 10 days; 20ml por tubo gastrico cada 12 horas por 10 santiago active Not Available Not Available No t Available docusate sodium 100 mg capsule sodium 100 mg Quantity : 60; Duration : 30; 0 refill(s ) 07/11 completed Duration : 30; VACCINE_ IND: no; Not Available Not Available Not Available mirtazapi ne 45 mg tablet TAB 45MG; Quantity : 90; Duration : 90; 0 refill(s ) 02/22 completed Duration : 90; VACCINE_ IND: no; Not Available Not Available Not Available Tylenol 325 mg tablet 325 mg Quantity : 30; 0 refill(s ) 12/01 completed Frequenc y: qd; VACCINE_ IND: no; SU_FULL_ NAME: Cheryl Brandonsusan scales; Not Available Not Available Not Available diclofena c sodium 75 mg tablet,de layed release TAB 75MG DR; Quantity : 60; Duration : 30; 0 refill(s ) 02/07 completed Duration : 30; VACCINE_ IND: no; Not Available Not Available Not Available folic acid 1 mg tablet TAKE ONE TABLET DAILY 09/25 completed VACCINE_ IND: no; SU_FULL_ NAME: Cheryl Martsusan scales; Not Available Not Available Not Available Liquid Nutrition oral 0 Quantity : 81043; Duration : 30; 0 refill(s ) 09/30 completed Duration : 30; VACCINE_ IND: no; Not Available Not Available Not Available hydroxyzi ne HCl 25 mg tablet HCL TAB 25MG; Quantity : 90; Duration : 30; 0 refill(s ) 01/25 completed Duration : 30; VACCINE_ IND: no; Not Available Not Available Not Available zolpidem 5 mg tablet TAB 5MG; Quantity : 30; Duration : 30; 0 refill(s ) 12/23 completed Duration : 30; VACCINE_ IND: no; Not Available Not Available Not Available alprazola m 2 mg tablet 2 mg Quantity : 90.000; Duration : 30; 3 refill(s ) 02/25 completed Duration : 30; VACCINE_ IND: no; Not Available Not Available Not Available mirtazapi ne 15 mg tablet TAB 15MG; Quantity : 90; Duration : 90; 0 refill(s ) 01/25 completed Duration : 90; VACCINE_ IND: no; Not Available Not Available Not Available propranol ol ER 120 mg capsule,2 4 hr,extend ed release TAKE 1 CAPSULE BY MOUTH EVERY DAY active Not Available Not Available No t Available ibuprofen 600 mg tablet TAB 600MG; Quantity : 30; Duration : 15; 0 refill(s ) 04/28 completed Duration : 15; VACCINE_ IND: no; Not Available Not Available Not Available cefuroxim e axetil 500 mg tablet TAKE 1 TABLET VIA FEEDING TUBE EVERY 12 HOURS FOR 7 DAYS active Not Available Not Available No t Available morphine 15 mg immediate release tablet TAKE 1 TABLET BY MOUTH EVERY 6 HOURS NEEDED FOR SEVERE PAIN active Not Available Not Available No t Available risperido ne 1 mg tablet TAB 1MG; Quantity : 135; Duration : 90; 0 refill(s ) 05/09 completed Duration : 90; VACCINE_ IND: no; Not Available Not Available Not Available doxycycli ne hyclate 100 mg tablet TAKE 1 TABLET BY MOUTH TWICE A DAY FOR 5 DAYS active Not Available Not Available No t Available ipratropi um bromide 21 mcg (0.03 %) nasal spray USE 2 SPRAYS UNDER TONGUE AT NIGHT FOR SIALORRH EA active Not Available Not Available No t Available loratadin e 10 mg tablet TAKE 1 TABLET BY MOUTH EVERY DAY 02/21 completed Duration : 30; VACCINE_ IND: no; SU_FULL_ NAME: Cheryl Taylorsusan scales; Not Available Not Available Not Available risperido ne 0.5 mg tablet TAB 0.5MG; Quantity : 30; Duration : 30; 0 refill(s ) 04/28 completed Duration : 30; VACCINE_ IND: no; Not Available Not Available Not Available naproxen 500 mg tablet TAKE 1 TABLET BY MOUTH TWICE A DAY NEEDED FOR PAIN active Not Available Not Available No t Available nortripty line 50 mg capsule TAKE 2 CAPSULES BY MOUTH DAILY 12/21 completed Duration : 30; VACCINE_ IND: no; SU_FULL_ NAME: Cheryl scales; Not Available Not Available Not Available Ventolin HFA 90 mcg/actua tion aerosol inhaler INHALE 2 PUFFS BY MOUTH EVERY 6 HOURS IF NEEDED FOR WHEEZING . active Not Available Not Available No t Available esomepraz ole magnesium 20 mg capsule,d elayed release 20 MG Quantity : 30; Duration : 30; 0 refill(s ) 11/11 completed Duration : 30; VACCINE_ IND: no; Not Available Not Available Not Available oxycodone 5 mg tablet TAKE 1 TABLET BY MOUTH EVERY 6 HOURS NEEDED FOR MODERATE PAIN (SCALE 4-6) FOR 7 DAYS active Not Available Not Available No t Available Benadryl 25 mg capsule 1-2 2 tabs po QD PRN for itchines s. 2023 active Not Available Not Available Not Avai lable enoxapari n 40 mg/0.4 mL subcutane ous syringe INJECT 0.4MLS SUBCUTAN EOUSLY EVERY DAY (POST SURGICAL DVT PROPHYLA XIS) UNTIL 03/31/22 active Not Available Not Available No t Available azithromy sam 500 mg tablet TOME 1 TABLETA POR V A ORAL TODOS LOS D POR 3 D active Not Available Not Available No t Available escitalop jocelyn 20 mg tablet OXALATE 20 MG TABS; Quantity : 30; Duration : 30; 0 refill(s ) 04/09 completed Duration : 30; VACCINE_ IND: no; Not Available Not Available Not Available metaxalon e 800 mg tablet 800 MG TABS; Quantity : 30; Duration : 7; 0 refill(s ) 10/12 completed Duration : 7; VACCINE_ IND: no; Not Available Not Available Not Available Suboxone 8 mg-2 mg sublingua l tablet 8 mg-2 mg Quantity : ; 0 refill(s ) 03/11 completed VACCINE_ IND: no; Not Available Not Available Not Available Testim 50 mg/5 gram (1 %) transderm al gel 50 mg/5 g (1%) Quantity : 300; 3 refill(s ) 02/25 completed Frequenc y: bid; VACCINE_ IND: no; SU_FULL_ NAME: Cheryl scales; Not Available Not Available Not Available cyclobenz aprine 5 mg tablet TAB 5MG; Quantity : 30; Duration : 10; 0 refill(s ) 04/28 completed Duration : 10; VACCINE_ IND: no; Not Available Not Available Not Available voriconaz ole 200 mg/5 mL (40 mg/mL) oral suspensio n TAKE 5 ML EVERY 12 HOURS BY ORAL ROUTE FOR 21 DAYS, FOR SIENNA GLABRATA ESOPHAGE AL- GTUBE. active Not Available Not Available No t Available AndroGel 1 % 12.5 mg/1.25 gram per pump actuation transderm al gel 12.5 mg/1.25 g (1%) Quantity : ; Duration : 30; 0 refill(s ) 02/25 completed Frequenc y: As Directed ; Duration : 30; VACCINE_ IND: no; SU_FULL_ NAME: Dr Stacia scales; Not Available Not Available Not Available Epzicom 600 mg-300 mg tablet 600 mg-300 mg Quantity : 30; Duration : 30; 3 refill(s ) 11/12 completed Duration : 30; VACCINE_ IND: no; SU_FULL_ NAME: Cheryl scales; Not Available Not Available Not Available Flovent HFA 110 mcg/actua tion aerosol inhaler 110 Quantity : 12; Duration : 60; 0 refill(s ) 02/22 completed Duration : 60; VACCINE_ IND: no; Not Available Not Available Not Available megestrol 625 mg/5 mL (125 mg/mL) oral suspensio n ADMINIST ER 5MLS VIA G-TUBE ONCE DAILY active Not Available Not Available No t Available chlorhexi dine gluconate 0.12 % mouthwash SWISH 15 ML IN THE MOUTH OR THROAT FOR 30 SECONDS THEN SPIT OUT EVERY DAY NEEDED FOR UP TO 14 DAYS active Not Available Not Available No t Available albuterol Quantity : ; 0 refill(s ) 2012 active VACCINE_ IND: no; SU_FULL_ NAME: OTHER; Not Available Not Available Not Available Nexium Quantity : ; 0 refill(s ) 2012 active VACCINE_ IND: no; Not Available Not Available Not Available Zostavax (PF) 19,400 unit/0.65 mL subcutane ous suspensio n - Quantity : ; 0 refill(s ) 2018 active VACCINE_ IND: yes; VACCINE_ NAME: zoster live; SU_FULL_ NAME: Cheryl scales; VIS_DATE : 04:00:00 .0; Not Available Not Available Not Available Atripla 600 mg-200 mg-300 mg tablet TAB; Quantity : 30; Duration : 30; 0 refill(s ) 01/19 completed Duration : 30; VACCINE_ IND: no; Not Available Not Available Not Available Advair HFA 115 mcg-21 mcg/actua tion aerosol inhaler PLEASE SEE ATTACHED FOR DETAILED DIRECTIO NS active Not Available Not Available No t Available Advair HFA 230 mcg-21 mcg/actua tion aerosol inhaler PLEASE SEE ATTACHED FOR DETAILED DIRECTIO NS active Not Available Not Available No t Available Ribaspher e RibaPak 600 mg (28)-600 mg (28) tablets in a dose pack 600 mg Quantity : ; 0 refill(s ) 2013 active VACCINE_ IND: no; SU_FULL_ NAME: Dr. Stacia scales; Not Available Not Available Not Available quetiapin e 50 mg tablet TAB 50MG; Quantity : 20; Duration : 20; 0 refill(s ) 06/22 completed Duration : 20; VACCINE_ IND: no; Not Available Not Available Not Available Reyataz 300 mg capsule 300 mg Quantity : 30; Duration : 30; 3 refill(s ) 10/25 completed Duration : 30; VACCINE_ IND: no; SU_FULL_ NAME: Cheryl scales; Not Available Not Available Not Available ferrous gluconate 324 mg (38 mg iron) tablet TOME 1 TABLETA POR V A ORAL DOS VECES AL D A active Not Available Not Available No t Available budesonid e-formote rol HFA 80 mcg-4.5 mcg/actua tion aerosol inhaler INHALE 2 PUFFS BY MOUTH TWO TIMES A DAY active Not Available Not Available No t Available Anti-Itch (hydrocor tisone) 1 % topical cream apply in affected area daily 09/30 completed VACCINE_ IND: no; SU_FULL_ NAME: Cheryl scales; Not Available Not Available Not Available Chest Congestio n Relief 100 mg/5 mL oral liquid TAKE 10 ML BY MOUTH THREE TIMES DAILY NEEDED FOR COUGH active Not Available Not Available No t Available brimonidi ne 0.2 %-timolol 0.5 % eye drops INSTILL 1 DROP INTO BOTH EYES TWICE A DAY active Not Available Not Available No t Available oxycodone 10 mg tablet TAKE 1 TABLET BY MOUTH EVERY 6 HOURS NEEDED FOR PAIN FOR 7 DAYS active Not Available Not Available No t Available diclofena c 1 % topical gel 1 Quantity : 100; Duration : 13; 0 refill(s ) 10/26 completed Duration : 13; VACCINE_ IND: no; Not Available Not Available Not Available Minerin Creme topical - Quantity : 454; Duration : 30; 0 refill(s ) 11/26 completed Duration : 30; VACCINE_ IND: no; Not Available Not Available Not Available Prezista 400 mg tablet 400 mg Quantity : 60; 3 refill(s ) 04/28 completed Frequenc y: qd; VACCINE_ IND: no; SU_FULL_ NAME: Cheryl scales; Not Available Not Available Not Available blood pressure test kit-large cuff USE TO CHECK BLOOD PRESSURE EVERY MORNING active Not Available Not Available No t Available Luis A-C-Y-W-1 35-Dip (PF) 10 mcg-5 mcg/0.5 mL IM kit (2 vials) - Quantity : ; 0 refill(s ) 2018 active VACCINE_ IND: yes; VACCINE_ NAME: Meningoc occal MCV4O; SU_FULL_ NAME: Cheryl scales; VIS_DATE : 14:17:37 .0; Not Available Not Available Not Available Prevnar 13 (PF) 0.5 mL intramusc ular syringe - Quantity : ; Duration : 30; 0 refill(s ) 12/31 completed Duration : 30; VACCINE_ IND: yes; VACCINE_ NAME: Pneumoco ccal conjugat e PCV 13; SU_FULL_ NAME: Stcaia scales Cheryl; Not Available Not Available Not Available Ibeth lyles DM To Go 5cc p qid as needed 10/12 completed VACCINE_ IND: no; SU_FULL_ NAME: Cheryl Stacia scales; Not Available Not Available Not Available buprenorp kena 8 mg-naloxo ne 2 mg sublingua l film TAKE 1 EA SUBLINGU ALLY ONCE A DAY 10/13 completed Duration : 7; VACCINE_ IND: no; Not Available Not Available Not Available Ensure Plus 0.05 gram-1.5 kcal/mL oral liquid TAKE 1 CAN VIA G-TUBE 3 TIMES DAILY 2023 active Not Available Not Available Not Avai lable Metamucil (with sugar) 3.4 gram/12 gram oral powder TAKE 5.12 G (3 G OF FIBER) BY MOUTH 2 TIMES DAILY. active Not Available Not Available No t Available Metamucil MultiHeal th Fiber 3.4 gram/5.8 gram oral powder 3.4 g/5.8 g Quantity : 660; Duration : 30; 0 refill(s ) 01/30 completed Duration : 30; VACCINE_ IND: no; Not Available Not Available Not Available lidocaine 5 % topical ointment 5 Quantity : 70; Duration : 30; 0 refill(s ) 01/25 completed Duration : 30; VACCINE_ IND: no; Not Available Not Available Not Available Flulaval 45 mcg (15 mcg x 3)/0.5 mL intramusc ular suspensio n - Quantity : ; Duration : 30; 0 refill(s ) 01/30 completed Duration : 30; VACCINE_ IND: yes; VACCINE_ NAME: Influenz a, seasonal , injectab le; SU_FULL_ NAME: Cheryl Reed; Not Available Not Available Not Available calcium 600 mg (as carbonate )-vitamin D3 20 mcg (800 unit) tablet TAKE 1 TABLET BY MOUTH AT NOON AND 1 TABLET IN THE EVENING. active Not Available Not Available No t Available AndroGel 1.62 % (20.25 mg/1.25 gram) transderm al gel packet 20.25 mg/1.25 g (1.62%) Quantity : 30; 0 refill(s ) 02/25 completed VACCINE_ IND: no; SU_FULL_ NAME: Cheryl scales; Not Available Not Available Not Available Eliquis 5 mg tablet GIVE 1 TABLET VIA G-TUBE TWO TIMES A DAY active Not Available Not Available No t Available Eliquis 2.5 mg tablet TOME BAHMAN TABLETA POR V A ORAL 2 TIMES DAILY active Not Available Not Available No t Available Tivicay 50 mg tablet Take 1 tablet by mouth daily. 09/20 completed Duration : 30; VACCINE_ IND: no; SU_FULL_ NAME: Cheryl scales; Not Available Not Available Not Available Sovaldi 400 mg tablet 400 mg Quantity : 30; 0 refill(s ) 2013 active Frequenc y: qd; VACCINE_ IND: no; SU_FULL_ NAME: Dr. Stacia scales; Not Available Not Available Not Available Afluria 45 mcg (15 mcg x 3)/0.5 mL intramusc ular suspensio n trivalen t Quantity : ; 0 refill(s ) 2013 active VACCINE_ IND: yes; VACCINE_ NAME: Influenz a, seasonal , injectab le; Not Available Not Available Not Available ProAir RespiClic k 90 mcg/actua tion breath activated 90 mcg/inh Quantity : 1; Duration : 25; 0 refill(s ) 09/20 completed Duration : 25; VACCINE_ IND: no; Not Available Not Available Not Available Fluvirin 45 mcg (15 mcg x 3)/0.5 mL intramusc ular suspensio n trivalen t Quantity : ; 0 refill(s ) 11/11 completed VACCINE_ IND: yes; VACCINE_ NAME: Influenz a, seasonal , injectab le; SU_FULL_ NAME: Cheryl scales; Not Available Not Available Not Available Boost Plus 0.06 gram-1.5 kcal/mL oral liquid TAKE 1 CAN VIA GASTRIC TUBE 3 TIMES A DAY 2023 active Not Available Not Available Not Avai lable naloxone 4 mg/actuat ion nasal spray PLEASE SEE ATTACHED FOR DETAILED DIRECTIO NS active Not Available Not Available No t Available Odefsey 200 mg-25 mg-25 mg tablet TAB; Quantity : 30; Duration : 30; 0 refill(s ) 12/25 completed Duration : 30; VACCINE_ IND: no; Not Available Not Available Not Available Odefsey Quantity : 30; 0 refill(s ) 2015 active Frequenc y: qd; VACCINE_ IND: no; Not Available Not Available Not Available Descovy 200 mg-25 mg tablet Take 1 tablet by mouth daily. 09/20 completed Duration : 30; VACCINE_ IND: no; SU_FULL_ NAME: Cheryl Palomo yordy; Not Available Not Available Not Available Fluvirin 45 mcg (15 mcg x 3)/0.5 mL intramusc ular suspensio n trivalen t Quantity : ; 0 refill(s ) 05/15 completed VACCINE_ IND: yes; VACCINE_ NAME: Influenz a, seasonal , injectab le; SU_FULL_ NAME: Cheryl Taylorsusan scales; Not Available Not Available Not Available Mytesi 125 mg tablet,de layed release 125 mg Quantity : 60; Duration : 30; 2 refill(s ) 10/13 completed Frequenc y: bid; Duration : 30; VACCINE_ IND: no; SU_FULL_ NAME: Cheryl Palomo yordy; Not Available Not Available Not Available Shingrix (PF) 50 mcg/0.5 mL intramusc ular suspensio n, kit adjuvant ed Quantity : ; 0 refill(s ) 2022 active VACCINE_ IND: yes; VACCINE_ NAME: zoster recombin ant; Not Available Not Available Not Available Biktarvy 50 mg-200 mg-25 mg tablet TOME 1 TABLETA POR V A ORAL TODOS LOS D FOR 30 DAYS active Not Available Not Available No t Available Afluria Quad 60 mcg (15 mcg x 4)/0.5 mL IM suspensio n quadriva lent Quantity : ; 0 refill(s ) 2017 active VACCINE_ IND: yes; VACCINE_ NAME: influenz a, injectab le, quadriva lent; SU_FULL_ NAME: Cheryl scales; VIS_DATE : 19:25:45 .0; Not Available Not Available Not Available Afluria Quad 60 mcg (15 mcg x 4)/0.5 mL intramusc ular susp. quadriva lent Quantity : ; 0 refill(s ) 2018 active VACCINE_ IND: yes; VACCINE_ NAME: influenz a, injectab le, quadriva lent; SU_FULL_ NAME: Cheryl scales; VIS_DATE : 05:00:00 .0; Not Available Not Available Not Available Afluria Quad 60 mcg (15 mcg x 4)/0.5 mL intramusc ular susp. quadriva lent Quantity : ; 0 refill(s ) 2019 active VACCINE_ IND: yes; VACCINE_ NAME: influenz a, injectab le, quadriva lent; SU_FULL_ NAME: Cheryl scales; VIS_DATE : 14:37:48 .0; Not Available Not Available Not Available Prevnar 20 (PF) 0.5 mL intramusc ular syringe - Quantity : ; 0 refill(s ) 2022 active VACCINE_ IND: yes; VACCINE_ NAME: Pneumoco ccal conjugat e PCV20, polysacc haride [id number] conjugat e, adjuvant , PF; Not Available Not Available Not Available Vitals Date Recorded Body height Provider Name an d Address Organization Details Last Updated DateTime 07/15/[address] [facility] 07/15/2024 15:22:29 Date Recorded Body temperature Body mass index (BMI) Body weight Respiratory rate Heart rate Systolic blood pressure Diastolic blood pressure Provider Name and Address Organization Details Last Updated DateTime 98.7 [degF] 20.6 kg/m2 39791.0 8 g 20 /min 87 /min 120 mm[Hg] 80 mm[Hg] Cheryl Street MD [address] [place] [address] [place], [place], [phone], [address] [address] [facility] 15:46:02 Social History None recorded. Functional Status None recorded. Mental Status None recorded. Family History Nothing Reported Notes:High cholesterol, Resp onse Property: Yes; , Cancer, other unspecified, Response Property: Yes; , Diabetes, Response Property: Yes; Medical History No medical history recorded. Immunizations Vaccine Type Date Status Note Provider Nam e and Address Organization Details Recorded Time Meningococcal MCV4O 9 completed Not Available [facility] 10/31/2023 06:54:49 zoster live 9 completed Not Available [facility] 10/31/2023 06:54:50 Influenza, split virus, quadrivalent, preservative 9 completed Not Available [facility] 10/31/2023 06:54:50 Influenza, split virus, quadrivalent, preservative 8 completed Not Available [facility] 10/31/2023 06:54:50 Influenza, split virus, quadrivalent, preservative 0 completed Not Available [facility] 10/31/2023 06:54:50 Past Encounters Encounter ID Performer Location Encounter Start Date Encounter Closed Date Diagnosis/Indication Diagnosis SNOMED-CT Code Diagnosis ICD10 Code [id number] MD Main Office [address] [place] [address] 06/18/2024 10:10:09 06/18/2024 11:12:33 Cachexia associated with AIDS 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 B20 Human immunodeficiency virus infection 26091183 B20 Inflammato ry disease of liver 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 K75.9 History of calculus of kidney 274892297 Z87.442 Aspiration pneumonia 422 951657 J69.0 Deep venou s thrombosis of lower extremity 728056374 I82.409 Pulmonary embolism 06344 [id number] MD Main Office [address] [place] [address] 07/15/2024 15:10:10 07/15/2024 15:45:30 Cachexia associated with AIDS 439813070 R64 B20 Human immunodeficiency virus infection 55185548 B20 Candidiasi s of the esophagus 99488830 B37.81 Medication monitoring 39 9836422 Z51.81 Health Concerns Section Related Observation LastModified by Organization Detai ls LastModified Time None Recorded Concern Status LastModified by Organization Details LastModified Time None Recorded Payers Encounter Date Sequence Insurance Name Policy Number Policy Perry Covered Member ID Perry Member ID Guarantor Name 07/15/2024 1 [facility] - DOS ON OR AFTER 2022 - MEDICARE [place]VANTAGE [place] REPLACEMENT/ADV ANTAGE - PPO) Benjamin Fall [id number] Benjamin Fall Notes Date Note Type Note Provider Name and Address Organization Details Recorded Time 07/15/2024 text/html HIVOn Biktarvy 1 tab po qd.reports daily compliance. denies missing dose.thrush on/off: recurrence. on clotrimazole daily .stable weight 120lbshe says he is eating more and apetitte has improvedfeels strongergetting serostim dailyno hospitalizations since he was last seenmed list reviewed.On Eliquis and enoxaparin. recent PE/DVT.VL nondetected03/2024 HIV VL nondetctedHIV VL nondetetcted01/2024 HIV VL nondetcetd;eGFR=76;AST /ALT wnl;11/2023 KA2=404; HIV VLnondetceted; no infections. Cheryl Street MD [address] [place] [address], [phone], [place] [address] [facility] 07/15/2024 15:47:48
--- OUTSIDE RECORDS SUMMARY | 2024-09-05 09:13 | XMS_ITS | Data Portability ---
Author Organization LYNN WHITE MD [facility], Main Office Address [address] [place] [address] Assessment No assessment recorded. Plan of Treatment Reminders Order Date Submit Date Provider Last Modified By Organization Details Last Modified Time Details Appointments RESEARCH FOLLOW UP 2024 11:00A Wilmer Levin MD Not available Not available Not available Lab None recorded . Referral None recorded . Procedures None recorded . Surgeries None recorded . Imaging electroc ardiogra m 2023 024 [email or web address] Main Office, [address] [place] [address], [address], 07/15/2024 15:47:38 Medication Orders fluconaz ole 10 mg/mL oral suspensi on 2023 024 [facility]/Pharmacy #[id number], [address] [place], [address], 03/16/2024 22:34:10 Serostim 6 mg subcutan eous solution 2023 024 [email or web address] Not available 03/14/2024 15:37:41 fluconaz ole 10 mg/mL oral suspensi on 2023 024 [facility]/Pharmacy #[id number], [address] [place], [address], 04/18/2024 10:19:05 Serostim 6 mg subcutan eous solution 2023 024 [facility] Specialty [address] [place], [address], 04/18/2024 14:20:41 voricona zole 200 mg/5 mL (40 mg/mL) oral suspensi on 2023 024 [facility]/Pharmacy #[id number], [address] [place], [address], 05/20/2024 11:43:08 Serostim 6 mg subcutan eous solution [address], [address], 05/20/2024 11:29:08 megestro l 625 mg/5 mL (125 mg/mL) oral suspensi on 2023 024 [facility]/Pharmacy #[id number], [address] [place], [address], 05/20/2024 11:30:41 Patient TargetsNo targets recorded. Patient InstructionsNo instructions recorded. Reason for Referral None Reported. Results Created Date Observation Date Name Description Value Unit Range Abnormal Flag Note LastModifiedBy Organization Detail LastModifiedTime 04/18/20 24 04/18/2024 MISCE LLANE OUS CULTU RE performing lab Perfor angel [facility] [employer] [address] [place] [address] Medic al Dire jj wu MD Not Available [facility] [address] [place] [address], [address], 04/28/2024 10:31:16 04/18/20 24 04/21/2024 MISCE LLANE OUS CULTU RE miscellaneou s culture CANDID A GLABRA TA Not Available [facility] [address] [place] [address], [address], 04/28/2024 10:31:16 04/18/20 24 04/18/2024 FUNGU S CULTU RE,OT HER performing lab Perfor angel [facility] [place] [address] [place] [address] Medic al Direc jj wu MD Not Available [facility] [address] [place], [address], 04/28/2024 10:31:19 04/18/20 24 04/22/2024 FUNGU S CULTU RE,OT HER fungus culture,othe r CANDID A GLABRA TA Not Available [facility] [address] [place], [address], 04/28/2024 10:31:19 04/08/20 24 11/12/2023 elect rocar diogr am No observ ation record ed. [email or web address] Not Available 2023 15:34:46 06/18/20 24 06/04/2024 US, abdom en, compl ete No observ ation record ed. [facility], [place], [address], 06/18/2024 11:12:25 07/15/20 24 07/15/2024 elect rocar diogr am No observ ation record ed. [email or web address] Main Office [address] [place], [address], 07/15/2024 17:12:05 07/17/20 elect rocar diogr am No observ ation record ed. [email or web address] Main Office [address] [place], [address], 07/17/2024 14:15:04 Result Notes None recorded. Problems Name Problem SNOMED Code Status Onset Date Resolution Date Notes Provider Name and Address Organization Details Recorded Time Asthma 726295847 Active 2006 Asthma; snomeddesc ription: Asthma; Report Immunity to Registry: Yes; Asthma; Report Immunity to Registry: Yes; ReasonDate : 10/13/2019 ; ; Start Date : 10/13/2019 Asthma; snomeddesc ription: Asthma; Report Immunity to Registry: Yes; Not Available [facility] 4 06:58:53 Male hypogonad ism 67045693 Active 2012 Male hypogonadi sm; snomeddesc ription: Male hypogonadi sm; Report Immunity to Registry: Yes; Not Available [facility] 4 06:58:53 Diarrhea 13343606 Active 2006 Diarrhea; snomeddesc ription: Diarrhea; Report Immunity to Registry: Yes; Diarrhea, unspecifie d; snomeddesc ription: Diarrhea; Report Immunity to Registry: Yes; Not Available [facility] 4 06:58:53 Substance abuse 81349959 Active 2006 Substance abuse; snomeddesc ription: Substance abuse; Report Immunity to Registry: Yes; Notes: opiate/suad jolene/benzo ; Not Available [facility] 4 06:58:53 Human immunodef iciency virus infection 04812668 Active 1991 Human immunodefi ciency virus [HIV] disease; snomeddesc ription: Human immunodefi ciency virus infection; Report Immunity to Registry: Yes; Human immunodefi ciency virus infection; snomeddesc ription: Human immunodefi ciency virus infection; Report Immunity to Registry: Yes; Not Available [facility] 4 06:58:53 Steatosis of liver 308148012 Active 2006 Steatosis of liver; snomeddesc ription: Steatosis of liver; Report Immunity to Registry: Yes; Notes: u/s 2021; Fatty (change of) liver, not elsewhere classified ; snomeddesc ription: Steatosis of liver; Report Immunity to Registry: Yes; Notes: u/s 2021; Not Available [facility] 4 06:58:53 Herpesvir us infection 88828492 Active 2009 Herpesvira l infection, unspecifie d; snomeddesc ription: Herpes simplex; Report Immunity to Registry: Yes; Notes: HSV 1 pos serology; HSV 2 neg serology; Not Available [facility] 4 06:58:53 Fibromyos itis 73566536 Active 2006 Myalgia and myositis, unspecifie d; snomeddesc ription: Fibromyalg ia; Report Immunity to Registry: Yes; Notes: Chronic pain multiple/c hronic back pain; Not Available [facility] 4 06:58:53 Herpes simplex 62895727 Active 2009 Herpes simplex; snomeddesc ription: Herpes simplex; Report Immunity to Registry: Yes; Notes: HSV 1 pos serology; HSV 2 neg serology; Not Available [facility] 4 06:58:54 Kidney stone 62551035 Active 2001 Calculus of kidney; snomeddesc ription: Kidney stone; Report Immunity to Registry: Yes; Kidney stone; snomeddesc ription: Kidney stone; Report Immunity to Registry: Yes; Not Available [facility] 4 06:58:54 History of calculus of kidney 459086824 Active 2001 History of calculus of kidney; snomeddesc ription: History of calculus of kidney; Report Immunity to Registry: Yes; Not Available [facility] 4 06:58:54 Type B viral hepatitis 64357462 Active 2006 Type B viral hepatitis; snomeddesc ription: Type B viral hepatitis; Report Immunity to Registry: Yes; Notes: core ab pos; s ag neg; s ab neg HBV vL nondetecte d 2016; 2017; Not Available [facility] 4 06:58:54 Hyperplas ia of prostate 136829352 Active 2014 Hyperplasi a of prostate, unspecifie d, without urinary obstructio n and other lower urinary symptoms (LUTS); snomeddesc ription: Hyperplasi a of prostate; Report Immunity to Registry: Yes; Hyperplas ia of prostate; snomeddesc ription: Hyperplasi a of prostate; Report Immunity to Registry: Yes; Not Available [facility] 4 06:58:54 Anxiety 94366673 Active 1996 Anxiety; snomeddesc ription: Anxiety; Report Immunity to Registry: Yes; Not Available [facility] 4 06:58:54 Testicula r hypofunct ion 523829742 Active 2012 Other testicular hypofuncti on; snomeddesc ription: Male hypogonadi sm; Report Immunity to Registry: Yes; Not Available [facility] 4 06:58:54 Seasonal allergic rhinitis 038611591 Active 2012 Other seasonal allergic rhinitis; snomeddesc ription: Seasonal allergy; Report Immunity to Registry: Yes; Notes: hx nasal congestion ; Not Available [facility] 4 06:58:54 Onychomyc osis due to dermatoph yte 799534381 Active 2017 Tinea unguium; snomeddesc ription: Onychomyco sis; Report Immunity to Registry: Yes; Notes: feet digits; Not Available [facility] 4 06:58:55 Sleep apnea 99030175 Active 1999 Sleep apnea; snomeddesc ription: Sleep apnea; Report Immunity to Registry: Yes; Unspecifi ed sleep apnea; snomeddesc ription: Sleep apnea; Report Immunity to Registry: Yes; Not Available [facility] 4 06:58:55 Psychoact marj substance abuse 82238733 Active 2006 Other psychoacti ve substance abuse, uncomplica lucho; snomeddesc ription: Substance abuse; Report Immunity to Registry: Yes; Notes: opiate/suad jolene/benzo ; Not Available [facility] 4 06:58:55 Viral hepatitis B without hepatic coma 758095268 Active 2006 Unspecifie d viral hepatitis B without hepatic coma; snomeddesc ription: Type B viral hepatitis; Report Immunity to Registry: Yes; Notes: core ab pos; s ag neg; s ab neg HBV vL nondetecte d 2016; 2017; Not Available [facility] 4 06:58:55 Blood chemistry outside reference range 920263886 Active 2012 Other specified abnormal findings of blood chemistry; snomeddesc ription: Decreased testostero ne level; Report Immunity to Registry: Yes; Notes: hypogoandi sm; Not Available [facility] 4 06:58:55 Arthritis 5832726 Active 1998 Arthritis; snomeddesc ription: Arthritis; Report Immunity to Registry: Yes; Notes: Osteoatrth ris multiple; Not Available [facility] 4 06:58:55 History of urinary stone 238339254 Active 2001 Personal history of urinary calculi; snomeddesc ription: History of calculus of kidney; Report Immunity to Registry: Yes; Not Available [facility] 4 06:58:56 Fibromyal mika 641215443 Active 2006 Fibromyalg ia; snomeddesc ription: Fibromyalg ia; Report Immunity to Registry: Yes; Notes: Chronic pain multiple/c hronic back pain; Not Available [facility] 4 06:58:56 Lyme disease 02277127 Active 2017 Lyme disease; Report Immunity to Registry: Yes; Notes: tx cefuroxime x14 d (hx all Doxy); Not Available [facility] 4 06:58:56 Headache 46980388 Active 2008 Headache; snomeddesc ription: Headache; Report Immunity to Registry: Yes; Notes: migraine; Headache; snomeddesc ription: Headache; Report Immunity to Registry: Yes; Notes: migraine; Not Available [facility] 4 06:58:56 Hypertens marj disorder 41041761 Active 2017 Hypertensi ve disorder; snomeddesc ription: Hypertensi ve disorder; Report Immunity to Registry: Yes; Not Available [facility] 4 06:58:56 Arthropat hy 543525305 Active 1998 Arthropath y, unspecifie d, site unspecifie d; snomeddesc ription: Arthritis; Report Immunity to Registry: Yes; Notes: Osteoatrth ris multiple; Not Available [facility] 4 06:58:56 Essential hypertens ion 64782559 Active 2017 Essential (primary) hypertensi on; snomeddesc ription: Hypertensi ve disorder; Report Immunity to Registry: Yes; Not Available [facility] 4 06:58:57 Testoster one level below reference range 213445562 Active 2012 Decreased testostero ne level; snomeddesc ription: Decreased testostero ne level; Report Immunity to Registry: Yes; Notes: hypogoandi sm; Not Available [facility] 4 06:58:57 Insomnia 818429765 Active 1996 Insomnia; Report Immunity to Registry: Yes; Not Available [facility] 4 06:58:57 Anxiety state 939668833 Active 1996 Anxiety state, unspecifie d; snomeddesc ription: Anxiety; Report Immunity to Registry: Yes; Not Available [facility] 4 06:58:57 Onychomyc osis 404608839 Active 2017 Onychomyco sis; snomeddesc ription: Onychomyco sis; Report Immunity to Registry: Yes; Notes: feet digits; Not Available [facility] 4 06:58:57 Chronic hepatitis C 694085895 Active 2006 Chronic hepatitis C without mention of hepatic coma; snomeddesc ription: Chronic hepatitis C; Report Immunity to Registry: Yes; Notes: F0 2011; CC IL28; g1a EOT 10/14 s/p 24 weeks tx Ribapak 1200mg po qd and Sovaldi 24 weeks SVR 12/23 HCV VL neg 2015;2017; 12/2021 F2 ; Chronic hepatitis C; snomeddesc ription: Chronic hepatitis C; Report Immunity to Registry: Yes; Notes: F0 2011; CC IL28; g1a EOT 10/14 s/p 24 weeks tx Ribapak 1200mg po qd and Sovaldi 24 weeks SVR 12/23 HCV VL neg 2015;2017; 12/2021 F2 ; Not Available [facility] 4 06:58:57 Depressiv e disorder 96419877 Active 1996 Depressive disorder, not elsewhere classified ; snomeddesc ription: Depressive disorder; Report Immunity to Registry: Yes; Depressiv e disorder; snomeddesc ription: Depressive disorder; Report Immunity to Registry: Yes; Not Available [facility] 4 06:58:58 Seasonal allergy 023570907 Active 2012 Seasonal allergy; snomeddesc ription: Seasonal allergy; Report Immunity to Registry: Yes; Notes: hx nasal congestion ; Not Available [facility] 4 06:58:58 Loss of appetite 53045428 Active 2012 Anorexia; snomeddesc ription: Loss of appetite; Report Immunity to Registry: Yes; Loss of appetite; snomeddesc ription: Loss of appetite; Report Immunity to Registry: Yes; Not Available [facility] 4 06:58:58 Seizure 47637612 Active 2000 Seizure; snomeddesc ription: Seizure; Report [...] Report Immunity to Registry: Yes; Not Available [facility] 4 06:58:58 Problem Notes None recorded. Procedures Surgical History None recorded. Imaging Results Imaging Date Name Status LastModified by Organization Details LastModified Time 11/12/2023 electrocardiogram completed [email or web address] Informa tion not available 04/08/2024 15:34:46 06/04/2024 US, abdomen, complete completed [email or web address] [place], [address], 06/18/2024 11:12:25 07/15/2024 electrocardiogram completed [email or web address] Main Of [address], [address], 07/15/2024 17:12:05 07/17/2024 electrocardiogram completed [email or web address] Main Of [address], [address], 07/17/2024 14:15:04 Procedure Notes None recorded. Medical Equipment None Reported. Allergies Allergen ID Allergen Name Allergen Category Reaction Reaction Severity Criticality Documentation Date Start Date Code Code System Note Provider Name and Address Organization Details Recorded Time 714 Reglan medicatio n Not available Not available Not available 10/31/20232012 9230 RxNorm Comme nt: adver se_ev ent_t ype: 81791 8002; ; Not Available [facility] 4 06:50:47 715 Motrin medicatio n Not available Not available Not available 10/31/2023201248 8 RxNorm Comme nt: adver se_ev ent_t ype: 52084 8002; ; Not Available [facility] 4 06:50:47 716 doxycycli ne Not available Not available Not available Not available 10/31/20232017 3640 RxNorm Comme nt: telma se_ev ent_t ype: 78156 8002; ; Not Available [facility] 4 06:50:47 Medications Name Sig Start Date Stop Date Status Note LastModified by Organization Details LastModified Time multivita min tablet Multiple Vitamins Quantity : 30; 3 refill(s ) 12/01 completed Frequenc y: qd; VACCINE_ IND: no; SU_FULL_ NAME: Cheryl Palomo yordy; Not Available Not Available Not Available quetiapin [...] 5; Duration : 5; 0 refill(s ) 03/14/ 2015 06/14 /2016 completed Duration : 5; VACCINE_ IND: no; [...] q1mo; VACCINE_ IND: no; SU_FULL_ NAME: Cheryl scales; [...] qd; VACCINE_ IND: no; SU_FULL_ NAME: Cheryl Taylorsusan [...] completed VACCINE_ IND: no; SU_FULL_ NAME: Cheryl Taylorsusan scales; Not Available Not Available Not Available Liquid Nutrition oral 0 Quantity : 78944; Duration : 30; 0 refill(s ) 09/30 [...] 30; VACCINE_ IND: no; SU_FULL_ NAME: Cheryl Martsusan [...] BY ORAL ROUTE FOR 21 DAYS, FOR SANDY GLABRATA ESOPHAGE AL- GTUBE. active Not Available [...] qd; VACCINE_ IND: no; SU_FULL_ NAME: Cheryl Palomo yordy; Not Available Not Available Not Available blood [...] ccal conjugat e PCV 13; SU_FULL_ NAME: Cheryl Reed; Not Available Not Available Not Available Сергейanuja lyles DM To Go 5cc p qid [...] Not Available Not Available Not Available Flulaval 0485-8284 45 mcg (15 mcg x 3)/0.5 mL [...] Not Available Not Available Not Available Afluria 5317-4375 45 mcg (15 mcg x 3)/0.5 mL [...] scales; Not Available Not Available Not Available Fluvirin [...] scales; Not Available Not Available Not Available Shingrix [...] Pneumoco ccal conjugat e PCV20, polysacc haride [id number] conjugat e, adjuvant , PF; Not Available Not Available Not Available Vitals Date Recorded Body height Heart rate Respiratory rate Body temperature Body mass index (BMI) Body weight Systolic blood pressure Diastolic blood pressure Provider Name and Address Organization Details Last Updated DateTime 4 162.56 cm 62 /min 20 /min 98.2 [degF] 20.1 kg/m2 02450.3 1 g 106 mm[Hg] 77 mm[Hg] Jerome PENDLETON 4 11:34:39 Date Recorded Body height Heart rate Body temperature Respiratory rate Body mass index (BMI) Body weight Systolic blood pressure Diastolic blood pressure Provider Name and Address Organization Details Last Updated DateTime 4 162.56 cm 82 /min 97.7 [degF] 18 /min 21.3 kg/m2 84619.4 5 g 123 mm[Hg] 85 mm[Hg] Jerome LEVIN MD [facility] 4 14:10:17 Date Recorded Body height Heart rate Respiratory rate Body temperature Body mass index (BMI) Body weight Systolic blood pressure Diastolic blood pressure Provider Name and Address Organization Details Last Updated DateTime 4 162.56 cm 109 /min 20 /min 97.2 [degF] 21.1 kg/m2 78719.8 6 g 111 mm[Hg] 90 mm[Hg] Jerome LEVIN MD [facility] 4 12:07:11 Date Recorded Body height Heart rate Respiratory rate Body temperature Body mass index (BMI) Body weight Systolic blood pressure Diastolic blood pressure Provider Name and Address Organization Details Last Updated DateTime 4 162.56 cm 89 /min 16 /min 98 [degF] 20.6 kg/m2 91791.0 8 g 123 mm[Hg] 90 mm[Hg] Jerome LEVIN MD [facility] 4 14:28:38 Date Recorded Body height Provider Name an d Address Organization Details Last Updated DateTime 07/15/2024 162.56 cm Jerome LEVIN MD [facility] 07/15/2024 15:22:29 Date Recorded Body temperature Body mass index (BMI) Body weight Respiratory rate Heart rate Systolic blood pressure Diastolic blood pressure Provider Name and Address Organization Details Last Updated DateTime 4 98.7 [degF] 20.6 kg/m2 55317.0 8 g 20 /min 87 /min 120 mm[Hg] 80 mm[Hg] Cheryl Levin MD [address] [place] [address], [phone], LYNN LEVIN MD [facility] 4 15:46:02 Social History None recorded. Functional Status None recorded. Mental Status None recorded. Family History Nothing Reported Notes:High cholesterol, Resp onse Property: Yes; , Cancer, other unspecified, Response Property: Yes; , Diabetes, Response Property: Yes; Medical History No medical history recorded. Immunizations Vaccine Type Date Status Note Provider Nam e and Address Organization Details Recorded Time Meningococcal MCV4O 9 completed Not Available [facility] 10/31/2023 06:54:49 zoster live 9 completed Not Available [facility] 10/31/2023 06:54:50 Influenza, split virus, quadrivalent, preservative 9 completed Not Available [facility] 10/31/2023 06:54:50 Influenza, split virus, quadrivalent, preservative 8 completed Not Available [facility] 10/31/2023 06:54:50 Influenza, split virus, quadrivalent, preservative 0 completed Not Available [facility] 10/31/2023 06:54:50 Past Encounters Encounter ID Performer Location Encounter Start Date Encounter Closed Date Diagnosis/Indication Diagnosis SNOMED-CT Code Diagnosis ICD10 Code [id number] Krista Castellano Main Office [address] [place] [address] 05/25/2023 09:48:40 06/27/2023 09:16:16 Human immunodeficiency virus infection 75825350 B20 [id number] Cheryl Levin MD Main Office [address] [place] [address] 08/24/2023 09:33:00 08/24/2023 10:46:09 Human immunodeficiency virus infection 76703638 B20 [id number] Cheryl Levin MD Main Office [address] [place] [phone] 11/12/2023 11:34:42 11/16/2023 15:00:47 Human immunodeficiency virus infection 53153525 B20 Adult [facility] th examination 705963253 Z00.00 [id number] Cheryl Levin MD Main Office [address] [place] [address] 11/21/2023 10:59:43 11/23/2023 14:55:21 [id number] Cheryl Levin MD Main Office [address] [place] [phone] 01/14/2024 09:27:39 01/16/2024 13:51:41 [id number] Cheryl Levin MD Main Office [address] [place] [address] 01/16/2024 10:24:39 01/16/2024 11:50:10 Human immunodeficiency virus infection 75441749 B20 Candidiasis of mouth 797 98840 B37.0 Right bund le branch block 94805979 I45.10 [id number] Cheryl Levin MD Main Office [address] [place] [phone] 02/14/2024 12:00:04 02/14/2024 12:24:19 Human immunodeficiency virus infection 41504763 B20 Methicilli n resistant Staphylococcus aureus infection 417806770 A49.02 Candidiasi s of the esophagus 20565390 B37.81 Weight loss 34628568 R63 .4 [id number] Cheryl Levin MD Main Office [address] [place] [phone] 02/21/2024 11:08:05 02/21/2024 12:09:56 Human immunodeficiency virus infection 34440303 B20 Candidiasi s of the esophagus 30131451 B37.81 Methicilli n resistant Staphylococcus aureus infection 874263950 A49.02 Cachexia a ssociated with AIDS 112456054 B20 R64 [id number] Cheryl Levin MD Main Office [address] [place] [address] 02/25/2024 10:24:53 02/25/2024 11:09:27 Human immunodeficiency virus infection 52245760 B20 Candidiasi s of the esophagus 93824799 B37.81 Cachexia a ssociated with AIDS 945187187 B20 R64 Methicilli n resistant Staphylococcus aureus infection 458784524 A49.02 [id number] Cheryl Levin MD Main Office [address] [place] [id number] 03/14/2024 10:24:00 03/14/2024 10:29:25 Cachexia associated with AIDS 631142491 R64 B20 Human immunodeficiency virus infection 09119241 B20 Candidiasi s of the esophagus 38935674 B37.81 [id number] Cheryl Levin MD Main Office [address] [place] [id number] 04/18/2024 09:52:00 04/18/2024 11:19:01 Cachexia associated with AIDS 204502415 R64 B20 Human immunodeficiency virus infection 61418591 B20 Candidiasi s of the esophagus 83981523 B37.81 Aspiration pneumonia 422 159483 J69.0 [id number] Cheryl Levin MD Main Office [address] [place] [address] 05/20/2024 10:17:53 05/20/2024 12:44:49 Cachexia associated with AIDS 265184910 R64 B20 Human immunodeficiency virus infection 49818694 B20 Candidiasi s of the esophagus 78557746 B37.81 [id number] Cheryl Levin MD Main Office [address] [place] [address] 06/18/2024 10:10:09 06/18/2024 11:12:33 Cachexia associated with AIDS 882839091 R64 B20 Human immunodeficiency virus infection 02755929 B20 Inflammato ry disease of liver 133701433 K75.9 History of calculus of kidney 321162994 Z87.442 Aspiration pneumonia 422 138339 J69.0 Deep venou s thrombosis of lower extremity 263862756 I82.409 Pulmonary embolism 63271 003 I26.99 [id number] Cheryl Levin MD Main Office [address] [place] [address] 07/15/2024 15:10:10 07/15/2024 15:45:30 Cachexia associated with AIDS 493094099 R64 B20 Human immunodeficiency virus infection 04715399 B20 Candidiasi s of the esophagus 78410003 B37.81 Medication monitoring 39 5002764 Z51.81 Health Concerns Section Related Observation LastModified by Organization Detai ls LastModified Time None Recorded Concern Status LastModified by Organization Details LastModified Time None Recorded Advance Directives Directive None Recorded Payers Encounter Date Sequence Insurance Name Policy Number Policy Perry Covered Member ID Perry Member ID Guarantor Name 03/14/2024 1 [employer] - DOS ON OR AFTER 2022 - MEDICARE [place]ANTAGE [place]ACEMENT/ADV ANTAGE - PPO) Benjamin Juan David [id number] [facility] Fall 04/18/2024 1 [employer] - DOS ON OR AFTER 2022 - [place]/ADV ANTAGE - [place]PO) Benjamin Juan David [id number] [facility] Fall 05/20/2024 1 [facility] - DOS ON OR AFTER 2022 - MEDICARE ADVANTAGE [place] (MEDICARE REPLACEMENT/ADV ANTAGE - PPO) [facility] Fall [id number] [facility] Fall 06/18/2024 1 [facility] - DOS ON OR AFTER 2022 - [place]IC[place]AGE [place]AC[place]/ADV ANTAGE - PPO) [facility] Fall [id number] [facility] Fall 07/15/2024 1 [facility] - DOS ON OR AFTER 2022 - [place]IC[place] RE[place]/ADV ANTAGE - PPO) [facility] Fall [id number] [facility] Fall Notes Date Note Type Note Provider Name and Address Organization Details Recorded Time 03/14/2024 text/html [facility] Bik[facility] 1 tab po qd.reports daily compliance. denies missing dose.01/16/24 esophageal sandy: C glabrata. he is on 2nd course of fluconazole by G tube since 02/16. ongoing tx. improved thrush. has gained 2 pounds since he was last seen..01/16/24 also MRSA. completed complete course of Bactrim by G tube. no recurrence.no new complians dx cachexia: will start Serostim s/c qd 6mg and Megace daily by G tube.no n/v/d. no ab dpainmed list reviewed.no drug use for years. not on maintenance tx.denies current ETOh use.HIV VL nondetetcted01/2024 HIV VL nondetcetd;eGFR=76;AST /ALT wnl;11/2023 RY2=238; HIV VLnondetceted; no infections.01/2022 LL4=651; HIV VL nondetceted; eGFR>60; ALt/AST wnl; syphilis neg; GC/chlamydia neg Cheryl Levin MD [address] [place] [address], [phone], LYNN LEVIN MD [facility] 03/16/2024 22:34:36 04/18/2024 text/html HIVOn Biktarvy 1 tab po qd.reports daily compliance. denies missing dose.01/16/24 esophageal sandy: C glabrata. completed daily fluconazole; will start suppression tx qw. iomproved thrush; cachexia: has gained weight on daily serostim and megace.124 lbs. improved energy. able to do more activities. increased apetitte. nurse helping with injection administrationno n/v/d. no abd painmed list reviewed.no drug use for years. not on maintenance tx.denies current ETOh use.reports was Hospitalized 3 days at [facility] this week with pneumonia 04/15- 04/17. discharge summary not available at time of visit. reports use of antibiotic; he says he was drinking shake in his bed and choked on it. dsicharge summery to be obtained. feels well. no SOB. no cough03/2024 HIV VL nondetctedHIV VL nondetetcted01/2024 HIV VL nondetcetd;eGFR=76;AST /ALT wnl;11/2023 OQ8=061; HIV VLnondetceted; no infections.01/2022 QR3=458; HIV VL nondetceted; eGFR>60; ALt/AST wnl; syphilis neg; GC/chlamydia neg Cheryl Levin MD [address] [place] [address], [phone], [facility] - CHERYL LEVIN MD [facility] 04/18/2024 14:20:48 05/20/2024 text/html HIVOn Biktarvy 1 tab po qd.reports daily compliance. denies missing dose.01/16/24 esophageal sandy: C glabrata. fluconazole partially helping. ongoing oral mucosacachexia: has gained weight on daily serostim and megace.123 lbs. improved energy. able to do more activities. inurse helping with injection administrationno n/v/d. no abd painmed list reviewed.no drug use for years. not on maintenance tx.denies current ETOh use.no hospitalization since last seen03/2024 HIV VL nondetctedHIV VL nondetetcted01/2024 HIV VL nondetcetd;eGFR=76;AST /ALT wnl;11/2023 DN2=999; HIV VLnondetceted; no infections.01/2022 UW5=337; HIV VL nondetceted; eGFR>60; ALt/AST wnl; syphilis neg; GC/chlamydia neg Cheryl Levin MD [address] [place] [address], [phone], [facility] - CHERYL LEVIN MD [facility] 05/20/2024 12:17:47 06/18/2024 text/html HIVOn Herbiearvy 1 tab po qd.reports daily compliance. denies missing dose.resolved thrush. hx recurrence. fluconazole and voriconazole on hold. Pt reports was hospitalized at [facility] 06/10/24-06/13/24 ( got to ER on 06/09/24); developed chest pain and cough for 2 days; left leg swollen x 2 days: CT Angio was positive for Acute lobar PE and left lower lobe aspiration pneumonia; lower extremity doppler showed DVT of gastrocnemius vein; treated with heparin and antibiotics(ceftriaxon e,Azithro,Flagyl); started apixaban(eliquis) bid. discharged on azithro and cefpodoxime x 3 days which he completed.med list reviewed.no drug use for years. not on maintenance tx.denies current ETOH use. prior to hospitalization, pt has had elevated liver enzymes. workup has been negative for infections, and non-infectious causes. neg EBV; neg CMV; neg hepatitis profile; JUAN C 1:80 speckled. no ETOH. no acetaminophen. he has not developed any sx. no abd pain. no n/v/d. no jaundice he reports he had stopped fluconazole, voriconazole, megace since 05/2024.liver enzymes elevated while in the hospital. u/s 06/04/24 was nl , except for a nonobstruction lefty renal calculi. he has had kidney stones in th the past as seen on CT scan of 02/15/2024. he is on Risperdal for schizophrenia for years. dose was increased on 2022, to 3 mg by another provider, and he gets sedated and drools chronically when he gets the dose, and gets better over the day; he has discussed with the provider a dose reduction, but has not been granted yet. 03/2024 HIV VL nondetctedHIV VL nondetetcted01/2024 HIV VL nondetcetd;eGFR=76;AST /ALT wnl;11/2023 FK7=721; HIV VLnondetceted; no infections.01/2022 FK4=548; HIV VL nondetceted; eGFR>60; ALt/AST wnl; syphilis neg; GC/chlamydia neg Cheryl eLvin MD [address] [place] [address], [phone], LYNN LEVIN MD [facility] 06/18/2024 18:19:56 07/15/2024 text/html HIVOn Biktarvy 1 tab po qd.reports daily compliance. denies missing dose.thrush on/off: recurrence. on clotrimazole daily .stable weight 120lbshe says he is eating more and apetitte has improvedfeels strongergetting serostim dailyno hospitalizations since he was last seenmed list reviewed.On Eliquis and enoxaparin. recent PE/DVT.VL nondetected03/2024 HIV VL nondetctedHIV VL nondetetcted01/2024 HIV VL nondetcetd;eGFR=76;AST /ALT wnl;11/2023 SF8=490; HIV VLnondetceted; no infections. Cheryl Levin MD [address] [place] [address], [phone], LYNN LEVIN MD [facility] 07/15/2024 15:47:48
--- OUTSIDE RECORDS SUMMARY | 2024-09-05 09:13 | XMS_ITS | Data Portability ---
Author Organization [facility] [employer] [facility], Main Office Address [address] [facility], [address] [place] [address] Care Team Providers Care Director Pharmacy Services Name Role Phone BRENDAN HOLLINGSWORTH - 2ND FLOOR OTHER Assessment Encounter Date Assessment Date Assessment LastModified by Organization Details LastModified Time 09/18/2023 09/18/2023 45 minutes spent on coordination of discharge. [email or web address] Not available 09/18/2023 09:47:05 Plan of Treatment Reminders Order Date Submit Date Provider Last Modified By Organization Details Last Modified Time Details Appointments None record ed. Lab None record ed. Referral None record ed. Procedures None record ed. Surgeries None record ed. Imaging None record ed. Medication Orders None record ed. Patient TargetsNo targets recorded. Patient InstructionsNo instructions recorded. Reason for Referral None Reported. Problems Name Problem SNOMED Code Status Onset Date Resolution Date Notes Provider Name and Address Organization Details Recorded Time Asthenia 21296733 Active 2022 MAURO DUFFY NP [address] [facility], [address], [place], [address], [facility] [employer] [facility] 3 12:08:07 Moderate protein-calori e malnutrition (weight for age 60-74 percent of standard) 512446914 Active 2022 MAURO DUFFY NP [address] [facility], [address], [place], [address], [facility] [employer] [facility] 3 12:08:23 Pneumonia 390466988 Active 2022 MAURO DUFFY NP [address] [facility], [address], [place], [address], [facility] [employer] [facility] 3 12:08:31 Pleural effusion 01232679 Active 2022 MAURO DUFFY NP [address] [facility], [address], [place], [address], [facility] 3 12:08:59 Hypertensive disorder 51476692 Active 2022 MAURO DUFFY NP [address], [address], [place], [address], [facility] 3 12:09:07 Human immunodeficien cy virus infection 05359199 Active 2022 MAURO DUFFY NP [address], [address], [place], [address], [facility] 3 12:09:12 Viral hepatitis C 29964637 Active 2022 MAURO DUFFY NP [address], [address], [place], [address], [facility] 3 12:09:28 Mixed anxiety and depressive disorder 918398200 Active 2022 MAURO DUFFY NP [address], [address], [place], [address], [facility] 3 12:09:40 Asthma 464896062 Active 2022 MAURO DUFFY NP [address], [address], [place], [address], [facility] 3 12:09:56 Acute dermatitis 15560893 Active 2022 MAURO DUFFY NP [address], [place], [address], [facility] 3 12:14:27 Migraine 45201644 Active 2022 MAURO DUFFY NP [address], [address], [place], [address], [facility] 3 12:25:08 Non-traumatic rhabdomyolysis 326098372 Active 2022 Leilani Romeo MD [address], [address], [place], [address], [facility] 3 10:08:19 Moderate persistent asthma 961861720 Active 2022 Leilani Romeo MD [address], [address], [place], [address], [facility] 3 10:18:10 Insomnia 319899975 Active 2022 Leilani Romeo MD [address], [address], [place], [address], [facility] 3 10:19:09 Polysubstance abuse 533741840 Active 2022 Leilani Romeo MD [address], [address], [place], [address], [facility] 3 10:19:11 Adult failure to thrive syndrome 542355896 Active 2022 Maryjane Glover NP [address], [address], [place], [address], [facility] 3 13:27:15 Anemia 148663510 Active 2022 Maryjane Glover NP [address], [address], [place], [address], [facility] 3 13:30:43 Dysphagia 40730016 Active 2022 Leilani Romeo MD [address], [address], [place], [address], [facility] 3 20:51:38 Gastroesophage al reflux disease without esophagitis 064427030 Active 2022 Leilani Romeo MD [address], [address], [place], [address], [facility] 3 20:54:24 Chronic pain 40211696 Active 2022 Leilani Romeo MD [address], [address], [place], [address], [facility] 3 20:55:56 Problem Notes None recorded. Medical Equipment None Reported. Allergies Allergen ID Allergen Name Allergen Category Reaction Reaction Severity Criticality Documentation Date Start Date Code Code System Note Provider Name and Address Organization Details Recorded Time [id number] 0828333o3 2824e codeine medicatio n Not available Not available Not available 01/17/2023 2670 RxNorm rash Not Available Not Available Not Available [id number] 725560013 [id number] 2824e Levaquin medicatio n Not available Not available Not available 01/17/2023 79563 2 RxNorm rash Not Available Not Available Not Available [id number] 590580057 [id number] 2824e Reglan medicatio n Not available Not available Not available 01/17/2023 9230 RxNorm rash Not Available Not Available Not Available [id number] 883655276 [id number] 2824e ibuprofen medicatio n Not available Not available Not available 01/17/2023 5640 RxNorm reflu x Not Available Not Available Not Available [id number] 476787790 [id number] 2824e Medicinal product containin g penicilli n and acting as antibacte rial agent (product) medicatio n Not available Not available Not available 01/17/2023 79946 05 SNOMED rash Not Available Not Available Not Available [id number] 525973193 [id number] 2824e Ultram medicatio n Not available Not available Not available 01/17/2023 44023 6 RxNorm N/V Not Available Not Available Not Available [id number] 29b50 acetamino phen medicatio n other Not available unabletoasse 08/03/2023 161 RxNorm unkno wn Not Available Not Available Not Available [id number] 29b50 [employer] environme nt,medica tion other Not available unabletoasse 08/03/2023 33367 6 RxNorm unkno wn Not Available Not Available Not Available Medications Name Sig Start Date Stop Date Status Note LastModified by Organization Details LastModified Time clonazepam 1 mg tablet Take 1 tablet every day by oral route. 023 active Not Available Not Available Not Avai lable tramadol 50 mg tablet Take 1 tablet every day by oral route as needed. 023 active Not Available Not Available Not Avai lable Vitals Date Recorded Body height Body weight Body mass index (BMI) Heart rate Respiratory rate Body temperature Oxygen saturation Oxygen saturation in Arterial blood by Pulse oximetry Systolic blood pressure Diastolic blood pressure Provider Name and Address Organization Details Last Updated DateTime 3 167.64 cm 06613.5 4 g 17.4 kg/m2 86 /min 18 /min 97.6 [degF] 91 % 91 % 115 mm[Hg] 68 mm[Hg] Maryjane Glover NP [address] [facility], [address], [place], [address], [facility] 3 11:08:33 Date Recorded Body height Body weight Heart rate Respiratory rate Body temperature Oxygen saturation Oxygen saturation in Arterial blood by Pulse oximetry Systolic blood pressure Diastolic blood pressure Provider Name and Address Organization Details Last Updated DateTime 3 167.64 cm 58883.5 4 g 72 /min 18 /min 97.1 [degF] 96 % 96 % 115 mm[Hg] 68 mm[Hg] Maryjane Glover NP [address] [facility], [facility] [address], [place], [address], [facility] 3 13:10:32 Date Recorded Body height Body mass index (BMI) Body weight Heart rate Systolic blood pressure Diastolic blood pressure Provider Name and Address Organization Details Last Updated DateTime 3 167.64 cm 17.3 kg/m2 81183.3 8 g 74 /min 133 mm[Hg] 85 mm[Hg] Dilia Gonzalez [address] [facility], [address], [place], [address], [facility] 3 13:13:45 Date Recorded Body height Body weight Heart rate Respiratory rate Body temperature Oxygen saturation Oxygen saturation in Arterial blood by Pulse oximetry Systolic blood pressure Diastolic blood pressure Provider Name and Address Organization Details Last Updated DateTime 4 167.64 cm 70919.5 4 g 88 /min 18 /min 97.6 [degF] 96 % 96 % 133 mm[Hg] 85 mm[Hg] Maryjane Glover NP [address] [facility], [address], [place], [address], [facility] 4 19:10:48 Date Recorded Body height Heart rate Respiratory rate Body temperature Oxygen saturation Oxygen saturation in Arterial blood by Pulse oximetry Systolic blood pressure Diastolic blood pressure Provider Name and Address Organization Details Last Updated DateTime 4 167.64 cm 84 /min 18 /min 97.5 [degF] 98 % 98 % 133 mm[Hg] 85 mm[Hg] MAURO DUFFY NP [address], [address], [place], [address], [email or web address] [facility] 4 08:57:54 Social History Question Answer Notes LastModified by Organizat ion Details LastModified Time Tobacco Smoking Status Never Smoker MAURO DUFFY NP [address], [place], [address], [facility] [employer] [facility] 01/17/2023 11:35:26 Do You Have An Advance Directive? Yes [email or web address] Information not available 01/17/2023 What Is Your Level Of Alcohol Consumption? None [email or web address] Information not available 01/17/2023 What Is Your Code Status? Full Code [email or web address] Information not available 01/17/2023 Where Do You Live? Apartment With Elevator, Family Near By, Helpful [email or web address] Information not available 01/17/2023 What Was The Date Of Your Most Recent Tobacco Screening? 08/03/2023 Information not available 08/03/2023 Do You Use Any Illicit Or Recreational Drugs? No Noted Past Use Cocaine Information not available 08/03/2023 Has Tobacco Cessation Counseling Been Provided? No [email or web address] Information not available 01/17/2023 Do You Or Have You Ever Used Any Other Forms Of Tobacco Or Nicotine? No [email or web address] Information not available 01/17/2023 Sex: Unknown Functional Status None recorded. Mental Status None recorded. Family History Relationship Description Onset Age of this Age Resolved Age Notes LastModified by Organization Details LastModified Time Mother Malignant tumor of lung [email or web address] Not available 2022 11:34:21 Medical History No medical history recorded. Immunizations Vaccine Type Date Status Note Provider Nam e and Address Organization Details Recorded Time COVID-19, mRNA, LNP-S, bivalent, PF, 50 mcg/0.5 mL or 25mcg/0.25 mL dose 2 completed Asia juarez [facility] [employer] [facility] 09/11/2023 13:44:56 COVID-19, mRNA, LNP-S, bivalent, PF, 50 mcg/0.5 mL or 25mcg/0.25 mL dose 3 completed Asia juarez, [facility] 09/11/2023 13:45:39 Pneumococcal conjugate PCV20, polysaccharide [id number] conjugate, adjuvant, PF 3 [facility] 13:46:16 Influenza, adjuvanted, quadrivalent, PF 3 completed Asia Washburnin larry, [facility] 09/11/2023 13:46:36 Influenza, adjuvanted, quadrivalent, PF 2 completed Asia Washburnin [facility] 10/24/2023 13:13:32 Past Encounters Encounter ID Performer Location Encounter Start Date Encounter Closed Date Diagnosis/Indication Diagnosis SNOMED-CT Code Diagnosis ICD10 Code [id number] MAURO DUFFY NP [address] [address] 01/17/2023 11:16:19 01/22/2023 12:34:21 Pleural effusion 15001853 J90 Pneumonia 080014977 J18. 9 Asthenia 89800862 R53.1 Moderate protein-calorie malnutrition (weight for age 60-74 percent of standard) 291027714 E44.0 Hypertensive disorder 38 573935 I10 Human immunodeficiency virus infection 40657611 B20 Mixed anxi ety and depressive disorder 948319931 F41.8 Asthma 491685892 J45.90 9 Acute dermatitis 5665405 6 L30.9 Migraine 64996806 G43.90 9 [id number] Kenia Michaels MD [address] [address] 01/19/2023 07:22:18 01/22/2023 15:16:30 Pneumonia 128163335 J15.8 Asthenia 49598058 R53.1 Human immunodeficiency virus infection 68774200 B20 Essential hypertension 44976774 I10 Mixed anxi ety and depressive disorder 898138180 F41.8 Gastroesop hageal reflux disease without esophagitis 349047647 K21.9 Chronic pain 18427625 G8 9.29 [id number] Panchito Morales NP [facility] on [address] [place] [address] 06/30/2023 08:20:37 07/03/2023 11:44:52 Human immunodeficiency virus infection 08327694 B20 Hypertensive disorder 38 934987 I10 Mixed anxi ety and depressive disorder 399286946 F41.8 Viral hepatitis C 227443 07 B19.20 [id number] Leilani Romeo MD [facility] on [address] [place] [address] 07/02/2023 17:00:01 07/12/2023 14:37:46 Human immunodeficiency virus infection 39842112 B20 Hypertensive disorder 38 043899 I10 Mixed anxi ety and depressive disorder 346070296 F41.8 Viral hepatitis C 603373 07 B18.2 Acute chest pain 8234091 01 R07.89 Non-trauma tic rhabdomyolysis 916327760 M62.82 Moderate p ersistent asthma 675517761 J45.40 Polysubstance abuse 4452 96686 F19.10 Cough 04024000 R05.8 Insomnia 154142754 G47.0 9 [id number] MIGUEL BROWN [facility] on [address] [place] [address] 07/05/2023 08:16:20 07/12/2023 16:01:31 Mixed anxiety and depressive disorder 243513319 F41.8 Cough 38577192 R05.8 Polysubstance abuse 4452 97250 F19.10 [id number] TANGELA BARRETO [facility] on [address] [place] [address] 07/06/2023 09:35:29 07/12/2023 16:16:45 Mixed anxiety and depressive disorder 776951201 F41.8 Cough 49152145 R05.8 Acute dermatitis 0077749 6 L30.9 Asthma 191041482 J45.90 9 Human immunodeficiency virus infection 34492099 B20 Hypertensive disorder 38 688225 I10 Insomnia 133146702 G47.0 9 Migraine 40125634 G43.90 9 Viral hepatitis C 204802 07 B18.2 [id number] Maryjane lGover NP [address] [address] 08/03/2023 12:58:35 08/08/2023 10:07:33 Human immunodeficiency virus infection 71669698 B20 Asthenia 31238738 R53.1 Essential hypertension 63118553 I10 Mixed anxi ety and depressive disorder 087706128 F41.8 Gastroesop hageal reflux disease without esophagitis 951354629 K21.9 Chronic pain 75581341 G8 9.29 Polysubstance abuse 4452 61607 F19.10 Asthma 029100494 J45.90 9 Viral hepatitis C 809222 07 B18.2 Moderate protein-calorie malnutrition (weight for age 60-74 percent of standard) 909741753 E44.0 Anemia 459647314 D64.9 Adult fail ure to thrive syndrome 877330990 R62.7 Insomnia 767683158 G47.0 9 [id number] Leilani Romeo MD [facility] [address] 08/06/2023 16:28:34 08/08/2023 11:16:44 Adult failure to thrive syndrome 288807779 R62.7 Moderate protein-calorie malnutrition (weight for age 60-74 percent of standard) 265388950 E44.0 Human immunodeficiency virus infection 64093472 B20 Asthenia 90255873 R53.1 Essential hypertension 18325218 I10 Gastroesop hageal reflux disease without esophagitis 735259438 K21.9 Chronic pain 75171775 G8 9.29 Asthma 607552023 J45.30 Anemia 157873411 D64.89 Mixed anxi ety and depressive disorder 904004692 F41.8 Viral hepatitis C 434469 07 B18.2 Polysubstance abuse 4452 41420 F19.10 Dysphagia 35694278 R13.1 9 [id number] Maryjane Glover NP [facility] [address] 08/16/2023 12:26:03 08/22/2023 11:29:11 Adult failure to thrive syndrome 025213606 R62.7 Dysphagia 18854406 R13.1 9 Moderate protein-calorie malnutrition (weight for age 60-74 percent of standard) 604298633 E44.0 Human immunodeficiency virus infection 43494373 B20 Asthenia 98786151 R53.1 Essential hypertension 56985412 I10 Gastroesop hageal reflux disease without esophagitis 365370343 K21.9 Chronic pain 04896656 G8 9.29 Asthma 629776947 J45.30 Anemia 030762076 D64.89 Mixed anxi ety and depressive disorder 868453446 F41.8 Viral hepatitis C 596789 07 B18.2 Polysubstance abuse 4452 58724 F19.10 [id number] Maryjane Glover, LADAN [facility] [address] [address] 08/22/2023 11:06:38 08/28/2023 14:23:57 Adult failure to thrive syndrome 113082488 R62.7 Asthenia 89523866 R53.1 Dysphagia 73561912 R13.1 9 Anemia 018230178 D64.89 Moderate protein-calorie malnutrition (weight for age 60-74 percent of standard) 143129115 E44.0 Human immunodeficiency virus infection 57852148 B20 Essential hypertension 41035269 I10 Gastroesop hageal reflux disease without esophagitis 067701576 K21.9 Chronic pain 01440640 G8 9.29 Asthma 841574438 J45.30 Mixed anxi ety and depressive disorder 708693466 F41.8 [id number] Maryjane Glover NP [facility] [address] [address] 08/29/2023 08:14:48 08/30/2023 19:42:34 Adult failure to thrive syndrome 670306629 R62.7 Asthenia 06498240 R53.1 Dysphagia 78192858 R13.1 9 Anemia 333838892 D64.89 Moderate protein-calorie malnutrition (weight for age 60-74 percent of standard) 578572484 E44.0 Human immunodeficiency virus infection 72451236 B20 Essential hypertension 92168940 I10 Gastroesop hageal reflux disease without esophagitis 100017204 K21.9 Chronic pain 59439760 G8 9.29 Asthma 927777627 J45.30 Mixed anxi ety and depressive disorder 272211427 F41.8 Neck pain 11653617 M54.2 [id number] Dilia Schwarz- Jaymea [facility] [address] [address] 09/07/2023 05:15:43 09/13/2023 10:39:11 Adult failure to thrive syndrome 034207204 R62.7 Asthenia 15063895 R53.1 Dysphagia 63397625 R13.1 9 Anemia 144605158 D64.89 Moderate protein-calorie malnutrition (weight for age 60-74 percent of standard) 726610307 E44.0 Human immunodeficiency virus infection 35497385 B20 Essential hypertension 26033585 I10 Gastroesop hageal reflux disease without esophagitis 767940434 K21.9 Chronic pain 07351779 G8 9.29 Asthma 123257830 J45.30 Mixed anxi ety and depressive disorder 367978773 F41.8 [id number] Maryjane Glover NP [facility] [address] [address] 09/12/2023 18:08:08 09/14/2023 11:17:17 Adult failure to thrive syndrome 756666869 R62.7 Asthenia 73847446 R53.1 Dysphagia 59699297 R13.1 9 Moderate protein-calorie malnutrition (weight for age 60-74 percent of standard) 439968007 E44.0 Human immunodeficiency virus infection 90992082 B20 Essential hypertension 21862133 I10 Asthma 478427190 J45.30 Mixed anxi ety and depressive disorder 382954718 F41.8 [id number] MAURO DUFFY NP [facility] [address] 09/18/2023 08:57:08 09/25/2023 10:49:09 Adult failure to thrive syndrome 382376455 R62.7 Asthenia 77363085 R53.1 Dysphagia 42622248 R13.1 9 Moderate protein-calorie malnutrition (weight for age 60-74 percent of standard) 845641265 E44.0 Human immunodeficiency virus infection 17492649 B20 Essential hypertension 78455577 I10 Asthma 046020951 J45.30 Mixed anxi ety and depressive disorder 378838381 F41.8 Chronic pain 14985357 G8 9.29 Anemia 447004278 D64.89 Health Concerns Section Related Observation LastModified by Organization Detai ls LastModified Time None Recorded Concern Status LastModified by Organization Details LastModified Time None Recorded Advance Directives Directive Y: Payers Encounter Date Sequence Insurance Name Policy Number Policy Perry Covered Member ID Perry Member ID Guarantor Name 08/22/2023 1 [employer] - DOS ON OR AFTER 2022 - MEDICARE [place]ANTAGE [place]ACEMENT/ADV ANTAGE - PPO) [facility] [id number] Benjamin Fall 08/29/2023 1 [employer] - DOS ON OR AFTER 2022 - [place]/ADV ANTAGE - PPO) Benjamin Fall [id number] Benjamin Fall 09/07/2023 1 [employer] - DOS ON OR AFTER 2022 - [place]/ADV ANTAGE - PPO) Benjamin Fall [id number] [facility] 09/12/2023 1 [employer] - DOS ON OR AFTER 2022 - [place]/ADV ANTAGE - PPO) [facility] [id number] [facility] 09/18/2023 1 [employer] - DOS ON OR AFTER 2022 - [place]IC[place]EMENT/ADV ANTAGE - PPO) [facility] [id number] [facility] Notes Date Note Type Note Provider Name and Address Organization Details Recorded Time 08/22/2023 text/html Patient seen for an acute rounding visit today. Past medical history significant for HIV, history of hep C, depression, asthma, history lung abscess 2020, fall, several overdoses noted in hx. dysphagia seen for difficulty swallowing ultimately diagnosed with failure to thrive and PEG tube placed. Pt is 107.6 lbs and this is similar to admission weight 1 lb less. He continues on gtube feedings with 1.2 tanya jevity at 67cc/hr. He plans to go home with help from his sister as soon as possible. Nursing is to educate family on G tube feedings. On exam, pt is alert and oriented x3 lying in bed with few words. He denies any headaches, chills, fevers, or intolerance to feeds. He reports he is getter stronger and up and walking. He denies nausea, constipation or other concerns. Note: He was admitted to [facility] for similar concerns earlier this month and underwent EGD on 07/17/[address] Dodson resulted without strictures and found to have candidiasis and treated. Since he returned with inability to eat and failure to thrive another EGD was done which was normal, and a PEG tube was placed. He has tolerated the PEG tube feedings, electrolytes wnl, and he will continue with meds through G tube including Bikarvy which can be crushed. Dysphagia is unclear and will require speech to work with him to see if food can be taken orally. MOLST: Full code signed 01/17/23 Maryjane Glover NP [address] [facility], [address], [place], [address], [facility] [employer] 08/22/2023 11:24:08 08/29/2023 text/html Patient seen for an 30 routine rounding visit. Past medical history significant for HIV, history of hep C, depression, asthma, history lung abscess 2020, fall, several overdoses noted in hx. dysphagia seen for difficulty swallowing ultimately diagnosed with failure to thrive and PEG tube placed. Benjamin was admitted to [facility] for difficulty swallowing and underwent EGD on 07/17/[address] Dodson resulted without strictures and found to have candidiasis and treated. Since he returned with inability to eat and failure to thrive another EGD was done which was normal, and a PEG tube was placed. He has tolerated the PEG tube feedings, electrolytes wnl, and he will continue with meds through G tube including Bikarvy which can be crushed. Dysphagia is unclear and will require speech to work with him to see if food can be taken orally upon dc from hospital to rehab. While here at [facility]: Pt is 107.6 lbs and this is similar to admission weight 1 lb less. He continues on gtube feedings with 1.2 tanya jevity at 67cc/hr. He was evaluated by speech here and found that he is not safe to eat or drink. He plans to go home with help from his sister as soon as possible. Nursing is to educate family on G tube feedings. He has tolerated the 24 hour feedings and has been able to connect and disconnect his feedings without difficulty here. Awaiting director wholesale to calculate bolus feedings and start them here.She will be in tomorrow. On exam, pt is alert and oriented x3 without any difficulty tolerating feedings. He denies any headaches, chills, fevers, or intolerance to feeds. He reports he is getter stronger and up and walking. He denies nausea, constipation today. He admits to some left neck pain from sleeping today. He is getting some pain medications now from nursing. MOLST: Full code signed 01/17/23 Maryjane Glover NP [address] [facility], [address], [place], [address], [facility] 08/29/2023 13:39:07 09/07/2023 text/html Patient seen for an acute rounding visit today. Past medical history significant for HIV, history of hep C, depression, asthma, history lung abscess 2020, fall, several overdoses noted in hx. dysphagia seen for difficulty swallowing ultimately diagnosed with failure to thrive and PEG tube placed. Pt is 107.6 lbs and this is similar to admission weight 1 lb less. He continues on gtube feedings with 1.2 tanya jevity at 67cc/hr. He plans to go home with help from his sister as soon as possible. Nursing is to educate family on G tube feedings. he is doing well and SW working on DC pt is alert and oriented x3 lying in bed with few words. He denies any headaches, chills, fevers, or intolerance to feeds. He reports he is getter stronger and up and walking. He denies nausea, constipation or other concerns. Note: He was admitted to [facility] ED for similar concerns earlier this month and underwent EGD on 07/17/[address] Dodson resulted without strictures and found to have candidiasis and treated. Since he returned with inability to eat and failure to thrive another EGD was done which was normal, and a PEG tube was placed. He has tolerated the PEG tube feedings, electrolytes wnl, and he will continue with meds through G tube including Bikarvy which can be crushed. Dysphagia is unclear and will require speech to work with him to see if food can be taken orally. MOLST: Full code signed 01/17/23 Dilia lloyd [address] [facility], [address], [place], [address], Incont 09/07/2023 13:21:25 09/12/2023 text/html Patient seen for an acute rounding visit today. Past medical history significant for HIV, history of hep C, depression, asthma, history lung abscess 2020, fall, several overdoses noted in hx. dysphagia seen for difficulty swallowing ultimately diagnosed with failure to thrive and PEG tube placed. Pt is 107.6 lbs and this is similar to admission weight 1 lb less. He has not been weighed since 08/20/23. Will request another weight. He continues on gtube feedings with 1.2 tanya jevity at 410 cc into 4 bolus feedings. Scripts for piston syringes and osmolite written for home. Per nursing and speech he is drinking water, cheez its, food from family despite nursing and speech not recommending this for aspiration purposes. He admits to eating and states he likes to eat and has no problem. On exam, he denies any shortness of breath and has some rhonchi to the left lower lobe. He states he has asthma however no audible wheezes noted. Will get chest xray due to aspiration risk tomorrow am. He is tolerating the feedings and has no distension or abd pain today. Coordinated care with speech today with plan to have a FEES test on Sunday am.MOLST: Full code signed 01/17/23 Maryjane Glover, LADAN [address] [facility], [address], [place], [address], [facility] [employer] 09/12/2023 19:33:00 09/18/2023 text/html Benjamin is seen t heidy for discharge. He is going home today with support of services. He is a 58 yo man admitted to [facility] 08/02/23 from [facility] for continued care and rehab after a hospitalization related to malnutrition and FTT.He presented to [facility] 07/27 reporting throat pain and the inability to swallow.Swallowing issues problematic prior to this presentation, had EGD with Dr. Dodson 07/17, results c/w mild candidiasis normal stomach and duodenum. He was also seen by [facility], diet changed to NND1 and nectar thick liquid. Due to ongoing swallowing issues at home, he returned to [facility] ER.A g-tube was placed on 07/30, cause of dysphagia unclear. Kept NPO, and sent here for rehab. While here, Benjamin has done well.Worked with PT/OT, meeting goals for d/c home.Also worked with [facility] and director wholesale - now tolerating puree diet with thin liquids. TF changed to bolus feeds; pt. able to demonstrate the ability to manage this at home.VSSLabs stable.Weight 108 lbs.No med changes while here. Upon exam, Benjamin is resting in bed. Alert, NAD, in good spirits, happy to be returning home. Offers no complaints, feels good.No concerns per nsg. His PMH includes HIV (last labs show neg viral load), hx of hep C, severe dysphagia with g-tube in place, s/p pleural empyema in 12/2022 and lung abscess in 2020, asthma, depression, nephrolithiasis, and cocaine abuse (possibly heroin at time also, possibly inadvertently). MAURO DUFFY NP [address] [facility], [address], [place], [address], [facility] - [employer] 09/18/2023 09:47:21
== END 2024-09-05 09:58 | disposition home or self-care (01) ==
PROVIDERS: PCP Student in an Organized Health Care Education/Training Program; Visit Provider Student in an Organized Health Care Education/Training Program
DX: M81.0 Age-related osteoporosis without current pathological fracture (principal); E27.8 Other specified disorders of adrenal gland
CPT/HCPCS: 99205

== ENCOUNTER 2024-09-08 09:39 | Outpatient (REF) | payer OTHER, SELFPAY ==
--- OUTSIDE RECORDS SUMMARY | 2024-09-08 09:41 | XMS_ITS ---
Demographics Address [address] [facility] [address] [place] [address] Preferred Language en Marital Status Unknown Episcopalian Affiliation Unknown Race White Ethnic Group Not or Lati no Author Organization [facility] Address [address] [place] [address] Care Team Providers Care No Bake Molder Name Role Phone Terese Rivera Primary Care Provider Pepe Dangelo Unavailable [phone] REASON FOR VISIT Pt no show Encounters Encounter Location Date Provider Diagnosis [facility] [address] [place] [address] 12/14/2023 Pepe Stephenson PLAN OF TREATMENT Next Appt Details Provider Name:Pepe Stephenson , 10/09/2024 09:40:00 AM, [address], [address], [place], [address],
--- OUTSIDE RECORDS SUMMARY | 2024-09-08 09:41 | XMS_ITS ---
Demographics Address [address] [facility] [address] [place] [address] Preferred Language en Marital Status Unknown Bahai Affiliation Unknown Race White Ethnic Group Not or Lati no Author Organization [facility] Address [address] [place] [address] Care Team Providers Care Access Consultant Name Role Phone Terese Rivera Primary Care Provider Pepe Dangelo Unavailable [phone] REASON FOR VISIT Patient presents today for [...] ve Encounters Encounter Location Date Provider Diagnosis [facility] [address] [place] [address] 12/14/2023 Pepe Stephenson PLAN OF TREATMENT Next Appt Details Provider Name:Pepe Stephenson , 10/09/2024 09:40:00 AM, [address], [address], [place], [address],
--- OUTSIDE RECORDS SUMMARY | 2024-09-08 09:41 | XMS_ITS | Data Portability ---
Author Organization [employer] [facility] [place] [facility] [employer] Address [address] [place] [address] Care Team Providers Care Aircraft Engine Dismantler Name Role Phone [facility] OTHER [facility] OTHER Assessment No assessment recorded. Plan of [...] Not available Not available Not available 07/08/2024 00235 RxNorm Not Available [employer] - production 4 03:36:50 7357 metoclopr amide Not available Not available Not available Not available 07/08/2024 6915 RxNorm Not Available [employer] - production 4 03:36:50 Medications Name Sig Start Date Stop [...] Diagnosis/Indication Diagnosis SNOMED-CT Code Diagnosis ICD10 Code [id number] ERLINDA HOLLIDAY MD Main - [facility] [address] [place] [address] 03/06/2024 16:50:44 03/07/2024 17:38:50 Lethargy 694521284 R53.83 Health Concerns Section Related Observation LastModified by Organization Detai ls LastModified Time None Recorded Concern Status LastModified by Organization Details LastModified Time None Recorded Advance Directives Directive None Recorded Payers Encounter Date Sequence Insurance Name Policy Number Policy Perry Covered Member ID Perry Member ID Guarantor Name 03/06/2024 1 [facility] - DOS ON OR AFTER 2022 - DUAL ELIGIBLE - SKILLED NURSING OPTIONS AND ONE CARE (MEDICARE REPLACEMENT/ADV ANTAGE - HMO) [facility] Juan David [id number] [facility] Juan David Notes Date Note Type [...] ................. ................. ................. ................. ................. ................. ..... Riffler Tender Note From Francisco Ley: Dispatched to above address for headache sore throat. On arrival patient met ND8 at the door. Initially patient denied calling for medical help or having any symptoms. ND8 confirmed patient name and address, after this [...] focus on current situation, poor affect, lethargic. [facility] contacted, spoke with Dr. Holliday, advised of patient complaints and exam findings. [facility] agreed further evaluation in the ER is necessary for this patient. Patient agreed to this. Patients neighbor who assists patient arrived to check on him. She reports this doesn't seem like his normal mentation but cannot be sure. 911 called. [place] [facility] responded. Verbal report given to [place] Riffler Tender. [place] tool procurement coordinator took over patient care. Nm8 clear. EOR. ................. ................. ................. ................. ................. ................. ................. ................. ..... Disposition: Shahzad HOLLIDAY MD [address] [facility], [place], [address], [place] KEERTHI DUBOSE 03/06/2024 18:02:19
--- OUTSIDE RECORDS SUMMARY | 2024-09-08 09:41 | XMS_ITS ---
Demographics Address [address] [facility] [address] [place] [address] Preferred Language en Marital Status Unknown Oriental Orthodox Affiliation Unknown Race White Ethnic Group Not or Lati no Author Organization [facility] Address [address] [place] [address] Care Team Providers Care Msw Name Role Phone Terese Rivera Primary Care Provider Pepe Dangelo [phone] Encounters Encounter Location Date Provider Diagnosis [facility] [address] [place] [address] 08/21/2023 Pepe Stephenson PLAN OF TREATMENT Next Appt Details Provider Name:Pepe Stephenson , 10/09/2024 09:40:00 AM, [address], [address], [place], [address],
--- OUTSIDE RECORDS SUMMARY | 2024-09-08 09:42 | XMS_ITS | Patient Health Record ---
Demographics Address [address] [facility] [facility] [address] [place] [address] Preferred Language en Marital Status Unknown Buddhist Affiliation Unknown Race White Ethnic Group Not or Lati no Author Organization [facility] Address [address] [place] [address] Care Team Providers Care Rotary Dump Operator Name Role Phone Terese Rivera Primary Care Provider Pepe Dangelo Unavailable [phone] ALLERGIES Allergen (clinical drug ingredient) Drug/Non Drug [...] stool (578.1) Active confirmed Blood in stool (326286533) Problem Constipation (564.00) Active confirmed Constipation (76605844) Problem GERD (gastroesophage al reflux disease) (530.81) Active confirmed Gastroesophagea l reflux disease (984240888) Problem Dysphagia (R13.10) Active confirmed Dysphagia (53562077) Problem Anorexia (R63.0) Active confirmed Anorexia (52254492) Problem Unspecified protein-calorie malnutrition (E46) Active confirmed Protein calorie malnutrition (004179158) Encounters Encounter Location Date Provider Diagnosis [facility] [address] [place] [address] 12/14/2023 Pepe Stephenson [facility] [address] [place] [address] 12/14/2023 Pepe Stephenson PLAN OF TREATMENT Future Test Test Name Order Date UPPER GI ENDOSCOPY 02/26/2013 COLONOSCOPY 02/26/2013 Next Appt Details Provider Name:Pepe Stephenson , 10/09/2024 09:40:00 AM, [address], [address], [place], [address], Insurance Providers Payer Name Payer Address Payer Phone Subscriber Number Group Number Insured Name Patient Relationship to Insured Coverage Start Date Coverage End Date [facility] [address] Attn Claims HOSEA Solorzano [id number] [facility] Self - patient is the insured [facility] [address] [place] [address] [id number] [facility] Self - patient is the insured MEDICAL (GENERAL) HISTORY Medical History History ICD Code seizures kidney stones Denies [place],DM,CVA,renal disease HIV infection since age 23-[address] e[address]-reports neg. hepatitis serologies GERD Mild asthma-Albuterol prn Anxiety Fibromyalgia Surgical History Surgery Date(Month/Year) hemorrhoidectomy 2004 Eye surgery as a child
--- OUTSIDE RECORDS SUMMARY | 2024-09-08 09:42 | XMS_ITS | Data Portability ---
Author Organization LYNN WHITE MD [facility], Main Office Address [address] [place] [address] Assessment No assessment recorded. Plan of Treatment Reminders Order Date Submit Date Provider Last Modified By Organization Details Last Modified Time Details Appointments RESEARCH FOLLOW UP 2024 11:00A Wilmer Levin MD Not available Not available Not available Lab None recorded . Referral None recorded . Procedures None recorded . Surgeries None recorded . Imaging electroc ardiogra m 2023 024 [email or web address] Main Office, [address] [place] [address], [phone], 07/15/2024 15:47:38 Medication Orders fluconaz ole 10 mg/mL oral suspensi on 2023 024 [facility] #[id number], [address] [place], [address], 03/16/2024 22:34:10 Serostim 6 mg subcutan eous solution 2023 024 [email or web address] Not available 03/14/2024 15:37:41 fluconaz ole 10 mg/mL oral suspensi on 2023 024 [facility] #[id number], [address] [place], [address], 04/18/2024 10:19:05 Serostim 6 mg subcutan eous solution 2023 024 [facility] [address] [place], [address], 04/18/2024 14:20:41 voricona zole 200 mg/5 mL (40 mg/mL) oral suspensi on 2023 024 [facility] #[id number], [address] [place], [address], 05/20/2024 11:43:08 Serostim 6 mg subcutan eous solution [address], [address], 05/20/2024 11:29:08 megestro l 625 mg/5 mL (125 mg/mL) oral suspensi on 2023 024 [facility] #[id number], [address] [place], [address], 05/20/2024 11:30:41 Patient TargetsNo targets recorded. Patient InstructionsNo instructions recorded. Reason for Referral None Reported. Results Created Date Observation Date Name Description Value Unit Range Abnormal Flag Note LastModifiedBy Organization Detail LastModifiedTime 04/18/20 24 04/18/2024 MISCE LLANE OUS CULTU RE performing lab Perfor [facility] [address] [place] [address] Medic al Dire jj wu MD Not Available [facility] [address] [place] [address], [address], 04/28/2024 10:31:16 04/18/20 24 04/21/2024 MISCE LLANE OUS CULTU RE miscellaneou s culture CANDID A GLABRA TA Not Available [facility] [address] [place] [address], [address], 04/28/2024 10:31:16 04/18/20 24 04/18/2024 FUNGU S CULTU RE,OT HER performing lab Perfor angel [facility] [place] [address] [place] [address] Medic al Direc jj wu MD Not Available [facility] [address] [place], [address], 04/28/2024 10:31:19 04/18/20 24 04/22/2024 FUNGU S CULTU RE,OT HER fungus culture,othe r CANDID A GLABRA TA Not Available [facility] [address] [place], [address], 04/28/2024 10:31:19 04/08/20 24 11/12/2023 elect rocar diogr am No observ ation record ed. [email or web address] Not Available 2023 15:34:46 06/18/20 24 06/04/2024 US, abdom en, compl ete No observ ation record ed. [email or web address] [facility], [place], [address], 06/18/2024 11:12:25 07/15/20 24 07/15/2024 elect rocar diogr am No observ ation record ed. [email or web address] Main Office [address] [place], [address], 07/15/2024 17:12:05 07/17/20 elect rocar diogr am No observ ation record ed. Main Office [address] [place], [address], 07/17/2024 14:15:04 Result Notes None recorded. Problems Name Problem SNOMED Code Status Onset Date Resolution Date Notes Provider Name and Address Organization Details Recorded Time Asthma 881526063 Active 2006 Asthma; snomeddesc ription: Asthma; Report Immunity to Registry: Yes; Asthma; Report Immunity to Registry: Yes; ReasonDate : 10/13/2019 ; ; Start Date : 10/13/2019 Asthma; snomeddesc ription: Asthma; Report Immunity to Registry: Yes; Not Available [facility] 4 06:58:53 Male hypogonad ism 91885430 Active 2012 Male hypogonadi sm; snomeddesc ription: Male hypogonadi sm; Report Immunity to Registry: Yes; Not Available [facility] 4 06:58:53 Diarrhea 22613765 Active 2006 Diarrhea; snomeddesc ription: Diarrhea; Report Immunity to Registry: Yes; Diarrhea, unspecifie d; snomeddesc ription: Diarrhea; Report Immunity to Registry: Yes; Not Available [facility] 4 06:58:53 Substance abuse 76963671 Active 2006 Substance abuse; snomeddesc ription: Substance abuse; Report Immunity to Registry: Yes; Notes: opiate/suad jolene/benzo ; Not Available [facility] 4 06:58:53 Human immunodef iciency virus infection 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 Human immunodefi ciency virus [HIV] disease; snomeddesc ription: Human immunodefi ciency virus infection; Report Immunity to Registry: Yes; Human immunodefi ciency virus infection; snomeddesc ription: Human immunodefi ciency virus infection; Report Immunity to Registry: Yes; Not Available [facility] 4 06:58:53 Steatosis of liver 245073548 Active 2006 Steatosis of liver; snomeddesc ription: Steatosis of liver; Report Immunity to Registry: Yes; Notes: u/s 2021; Fatty (change of) liver, not elsewhere classified ; snomeddesc ription: Steatosis of liver; Report Immunity to Registry: Yes; Notes: u/s 2021; Not Available [facility] 4 06:58:53 Herpesvir us infection 66411648 Active 2009 Herpesvira l infection, unspecifie d; snomeddesc ription: Herpes simplex; Report Immunity to Registry: Yes; Notes: HSV 1 pos serology; HSV 2 neg serology; Not Available [facility] 4 06:58:53 Fibromyos itis 52077605 Active 2006 Myalgia and myositis, unspecifie d; snomeddesc ription: Fibromyalg ia; Report Immunity to Registry: Yes; Notes: Chronic pain multiple/c hronic back pain; Not Available [facility] 4 06:58:53 Herpes simplex 74723481 Active 2009 Herpes simplex; snomeddesc ription: Herpes simplex; Report Immunity to Registry: Yes; Notes: HSV 1 pos serology; HSV 2 neg serology; Not Available [facility] 4 06:58:54 Kidney stone 40799484 Active 2001 Calculus of kidney; snomeddesc ription: Kidney stone; Report Immunity to Registry: Yes; Kidney stone; snomeddesc ription: Kidney stone; Report Immunity to Registry: Yes; Not Available [facility] 4 06:58:54 History of calculus of kidney 245185126 Active 2001 History of calculus of kidney; snomeddesc ription: History of calculus of kidney; Report Immunity to Registry: Yes; Not Available [facility] 4 06:58:54 Type B viral hepatitis 22852388 Active 2006 Type B viral hepatitis; snomeddesc ription: Type B viral hepatitis; Report Immunity to Registry: Yes; Notes: core ab pos; s ag neg; s ab neg HBV vL nondetecte d 2016; 2017; Not Available [facility] 4 06:58:54 Hyperplas ia of prostate 285067656 Active 2014 Hyperplasi a of prostate, unspecifie d, without urinary obstructio n and other lower urinary symptoms (LUTS); snomeddesc ription: Hyperplasi a of prostate; Report Immunity to Registry: Yes; Hyperplas ia of prostate; snomeddesc ription: Hyperplasi a of prostate; Report Immunity to Registry: Yes; Not Available [facility] 4 06:58:54 Anxiety 61994472 Active 1996 Anxiety; snomeddesc ription: Anxiety; Report Immunity to Registry: Yes; Not Available [facility] 4 06:58:54 Testicula r hypofunct ion 782502650 Active 2012 Other testicular hypofuncti on; snomeddesc ription: Male hypogonadi sm; Report Immunity to Registry: Yes; Not Available [facility] 4 06:58:54 Seasonal allergic rhinitis 428840974 Active 2012 Other seasonal allergic rhinitis; snomeddesc ription: Seasonal allergy; Report Immunity to Registry: Yes; Notes: hx nasal congestion ; Not Available [facility] 4 06:58:54 Onychomyc osis due to dermatoph yte 489712871 Active 2017 Tinea unguium; snomeddesc ription: Onychomyco sis; Report Immunity to Registry: Yes; Notes: feet digits; Not Available [facility] 4 06:58:55 Sleep apnea 71621370 Active 1999 Sleep apnea; snomeddesc ription: Sleep apnea; Report Immunity to Registry: Yes; Unspecifi ed sleep apnea; snomeddesc ription: Sleep apnea; Report Immunity to Registry: Yes; Not Available [facility] 4 06:58:55 Psychoact marj substance abuse 47371303 Active 2006 Other psychoacti ve substance abuse, uncomplica lucho; snomeddesc ription: Substance abuse; Report Immunity to Registry: Yes; Notes: opiate/suad jolene/benzo ; Not Available [facility] 4 06:58:55 Viral hepatitis B without hepatic coma 320112024 Active 2006 Unspecifie d viral hepatitis B without hepatic coma; snomeddesc ription: Type B viral hepatitis; Report Immunity to Registry: Yes; Notes: core ab pos; s ag neg; s ab neg HBV vL nondetecte d 2016; 2017; Not Available [facility] 4 06:58:55 Blood chemistry outside reference range 614060106 Active 2012 Other specified abnormal findings of blood chemistry; snomeddesc ription: Decreased testostero ne level; Report Immunity to Registry: Yes; Notes: hypogoandi sm; Not Available [facility] 4 06:58:55 Arthritis 3603589 Active 1998 Arthritis; snomeddesc ription: Arthritis; Report Immunity to Registry: Yes; Notes: Osteoatrth ris multiple; Not Available [facility] 4 06:58:55 History of urinary stone 611121271 Active 2001 Personal history of urinary calculi; snomeddesc ription: History of calculus of kidney; Report Immunity to Registry: Yes; Not Available [facility] 4 06:58:56 Fibromyal mika 624365118 Active 2006 Fibromyalg ia; snomeddesc ription: Fibromyalg ia; Report Immunity to Registry: Yes; Notes: Chronic pain multiple/c hronic back pain; Not Available [facility] 4 06:58:56 Lyme disease 96883482 Active 2017 Lyme disease; Report Immunity to Registry: Yes; Notes: tx cefuroxime x14 d (hx all Doxy); Not Available [facility] 4 06:58:56 Headache 37657078 Active 2008 Headache; snomeddesc ription: Headache; Report Immunity to Registry: Yes; Notes: migraine; Headache; snomeddesc ription: Headache; Report Immunity to Registry: Yes; Notes: migraine; Not Available [facility] 4 06:58:56 Hypertens marj disorder 46251502 Active 2017 Hypertensi ve disorder; snomeddesc ription: Hypertensi ve disorder; Report Immunity to Registry: Yes; Not Available [facility] 4 06:58:56 Arthropat hy 292349921 Active 1998 Arthropath y, unspecifie d, site unspecifie d; snomeddesc ription: Arthritis; Report Immunity to Registry: Yes; Notes: Osteoatrth ris multiple; Not Available [facility] 4 06:58:56 Essential hypertens ion 32676361 Active 2017 Essential (primary) hypertensi on; snomeddesc ription: Hypertensi ve disorder; Report Immunity to Registry: Yes; Not Available [facility] 4 06:58:57 Testoster one level below reference range 410971713 Active 2012 Decreased testostero ne level; snomeddesc ription: Decreased testostero ne level; Report Immunity to Registry: Yes; Notes: hypogoandi sm; Not Available [facility] 4 06:58:57 Insomnia 257375868 Active 1996 Insomnia; Report Immunity to Registry: Yes; Not Available [facility] 4 06:58:57 Anxiety state 160984990 Active 1996 Anxiety state, unspecifie d; snomeddesc ription: Anxiety; Report Immunity to Registry: Yes; Not Available [facility] 4 06:58:57 Onychomyc osis 269384086 Active 2017 Onychomyco sis; snomeddesc ription: Onychomyco sis; Report Immunity to Registry: Yes; Notes: feet digits; Not Available [facility] 4 06:58:57 Chronic hepatitis C 789807888 Active 2006 Chronic hepatitis C without mention [...] neg 2015;2017; 12/2021 F2 ; Not Available [facility] 4 06:58:57 Depressiv e disorder 44943494 Active 1996 Depressive disorder, not elsewhere classified ; snomeddesc ription: Depressive disorder; Report Immunity to Registry: Yes; Depressiv e disorder; snomeddesc ription: Depressive disorder; Report Immunity to Registry: Yes; Not Available [facility] 4 06:58:58 Seasonal allergy 463581483 Active 2012 Seasonal allergy; snomeddesc ription: Seasonal allergy; Report Immunity to Registry: Yes; Notes: hx nasal congestion ; Not Available [facility] 4 06:58:58 Loss of appetite 14586911 Active 2012 Anorexia; snomeddesc ription: Loss of appetite; Report Immunity to Registry: Yes; Loss of appetite; snomeddesc ription: Loss of appetite; Report Immunity to Registry: Yes; Not Available [facility] 4 06:58:58 Seizure 89618629 Active 2000 Seizure; snomeddesc ription: Seizure; Report [...] Report Immunity to Registry: Yes; Not Available [facility] 4 06:58:58 Problem Notes None recorded. Procedures Surgical History None recorded. Imaging Results Imaging Date Name Status LastModified by Organization Details LastModified Time 11/12/2023 electrocardiogram completed [email or web address] Informa tion not available 04/08/2024 15:34:46 06/04/2024 US, abdomen, complete completed [email or web address] [place], [address], 06/18/2024 11:12:25 07/15/2024 electrocardiogram completed [email or web address] Main Of [address], [address], 07/15/2024 17:12:05 07/17/2024 electrocardiogram completed [email or web address] Main Of [address], [address], 07/17/2024 14:15:04 Procedure Notes None recorded. Medical Equipment None Reported. Allergies Allergen ID Allergen Name Allergen Category Reaction Reaction Severity Criticality Documentation Date Start Date Code Code System Note Provider Name and Address Organization Details Recorded Time 714 Reglan medicatio n Not available Not available Not available 10/31/20232012 9230 RxNorm Comme nt: adver se_ev ent_t ype: 44509 8002; ; Not Available [facility] 4 06:50:47 715 Motrin medicatio n Not available Not available Not available 10/31/2023201248 8 RxNorm Comme nt: adver se_ev ent_t ype: 39329 8002; ; Not Available [facility] 4 06:50:47 716 doxycycli ne Not available Not available Not available Not available 10/31/20232017 3640 RxNorm Comme nt: telma se_ev ent_t ype: 03083 8002; ; Not Available [facility] 4 06:50:47 Medications Name Sig Start Date [...] Available Liquid Nutrition oral 0 Quantity : 51556; Duration : 30; 0 refill(s ) 09/30 [...] Not Available Not Available Not Available Flulaval 2767-8781 45 mcg (15 mcg x 3)/0.5 mL [...] Not Available Not Available Not Available Afluria 2778-8789 45 mcg (15 mcg x 3)/0.5 mL [...] Pneumoco ccal conjugat e PCV20, polysacc haride DSL122 conjugat e, adjuvant , PF; Not Available Not Available Not Available Vitals Date Recorded Body height Heart rate Respiratory rate Body temperature Body mass index (BMI) Body weight Systolic blood pressure Diastolic blood pressure Provider Name and Address Organization Details Last Updated DateTime 4 162.56 cm 62 /min 20 /min 98.2 [degF] 20.1 kg/m2 58598.3 1 g 106 mm[Hg] 77 mm[Hg] Jerome PENDLETON 4 11:34:39 Date Recorded Body height Heart rate Body temperature Respiratory rate Body mass index (BMI) Body weight Systolic blood pressure Diastolic blood pressure Provider Name and Address Organization Details Last Updated DateTime 4 162.56 cm 82 /min 97.7 [degF] 18 /min 21.3 kg/m2 46194.4 5 g 123 mm[Hg] 85 mm[Hg] Jerome LEVIN MD [facility] 4 14:10:17 Date Recorded Body height Heart rate Respiratory rate Body temperature Body mass index (BMI) Body weight Systolic blood pressure Diastolic blood pressure Provider Name and Address Organization Details Last Updated DateTime 4 162.56 cm 109 /min 20 /min 97.2 [degF] 21.1 kg/m2 94519.8 6 g 111 mm[Hg] 90 mm[Hg] Jerome LEVIN MD [facility] 4 12:07:11 Date Recorded Body height Heart rate Respiratory rate Body temperature Body mass index (BMI) Body weight Systolic blood pressure Diastolic blood pressure Provider Name and Address Organization Details Last Updated DateTime 4 162.56 cm 89 /min 16 /min 98 [degF] 20.6 kg/m2 91013.0 8 g 123 mm[Hg] 90 mm[Hg] Jerome LEVIN MD [facility] 4 14:28:38 Date Recorded Body height Provider Name an d Address Organization Details Last Updated DateTime 07/15/2024 162.56 cm Jerome LEVIN MD [facility] 07/15/2024 15:22:29 Date Recorded Body temperature Body mass index (BMI) Body weight Respiratory rate Heart rate Systolic blood pressure Diastolic blood pressure Provider Name and Address Organization Details Last Updated DateTime 4 98.7 [degF] 20.6 kg/m2 88783.0 8 g 20 /min 87 /min 120 mm[Hg] 80 mm[Hg] Cheryl Levin MD [address] [place] [address], [phone], LYNN LEVIN MD [facility] 4 15:46:02 Social History None recorded. [...] Time Meningococcal MCV4O 9 completed Not Available [facility] 10/31/2023 06:54:49 zoster live 9 completed Not Available [facility] 10/31/2023 06:54:50 Influenza, split virus, quadrivalent, preservative 9 completed Not Available [facility] 10/31/2023 06:54:50 Influenza, split virus, quadrivalent, preservative 8 completed Not Available [facility] 10/31/2023 06:54:50 Influenza, split virus, quadrivalent, preservative 0 completed Not Available [facility] 10/31/2023 06:54:50 Past Encounters Encounter ID Performer Location Encounter Start Date Encounter Closed Date Diagnosis/Indication Diagnosis SNOMED-CT Code Diagnosis ICD10 Code [id number] Krista Castellano Main Office [address] [place] [address] 05/25/2023 09:48:40 06/27/2023 09:16:16 Human immunodeficiency virus infection 44859370 B20 [id number] Cheryl Levin MD Main Office [address] [place] [address] 08/24/2023 09:33:00 08/24/2023 10:46:09 Human immunodeficiency virus infection 05553066 B20 [id number] Cheryl Levin MD Main Office [address] [place] [address] 11/12/2023 11:34:42 11/16/2023 15:00:47 Human immunodeficiency virus infection 06082533 B20 Adult [facility] th examination 320227202 Z00.00 [id number] Cheryl Levin MD Main Office [address] [place] [address] 11/21/2023 10:59:43 11/23/2023 14:55:21 [id number] Cheryl Levin MD Main Office [address] [place] [address] 01/14/2024 09:27:39 01/16/2024 13:51:41 [id number] Cheryl Levin MD Main Office [address] [place] [address] 01/16/2024 10:24:39 01/16/2024 11:50:10 Human immunodeficiency virus infection 06769612 B20 Candidiasis of mouth 797 76572 B37.0 Right bund le branch block 61431451 I45.10 [id number] Cheryl Levin MD Main Office [address] [place] [address] 02/14/2024 12:00:04 02/14/2024 12:24:19 Human immunodeficiency virus infection 81988179 B20 Methicilli n resistant Staphylococcus aureus infection 894327197 A49.02 Candidiasi s of the esophagus 81743418 B37.81 Weight loss 53963066 R63 .4 [id number] Cheryl Levin MD Main Office [address] [place] [address] 02/21/2024 11:08:05 02/21/2024 12:09:56 Human immunodeficiency virus infection 68692474 B20 Candidiasi s of the esophagus 88429183 B37.81 Methicilli n resistant Staphylococcus aureus infection 057003686 A49.02 Cachexia a ssociated with AIDS 732149958 B20 R64 [id number] Cheryl Levin MD Main Office [address] [place] [address] 02/25/2024 10:24:53 02/25/2024 11:09:27 Human immunodeficiency virus infection 50478651 B20 Candidiasi s of the esophagus 01805304 B37.81 Cachexia a ssociated with AIDS 594188512 B20 R64 Methicilli n resistant Staphylococcus aureus infection 631699940 A49.02 [id number] Cheryl Levin MD Main Office [address] [place] [address] 03/14/2024 10:24:00 03/14/2024 10:29:25 Cachexia associated with AIDS 868689646 R64 B20 Human immunodeficiency virus infection 70595074 B20 Candidiasi s of the esophagus 59793134 B37.81 [id number] Cheryl Levin MD Main Office [address] [place] [address] 04/18/2024 09:52:00 04/18/2024 11:19:01 Cachexia associated with AIDS 714991551 R64 B20 Human immunodeficiency virus infection 48224662 B20 Candidiasi s of the esophagus 40226483 B37.81 Aspiration pneumonia 422 461988 J69.0 [id number] Cheryl Levin MD Main Office [address] [place] [address] 05/20/2024 10:17:53 05/20/2024 12:44:49 Cachexia associated with AIDS 074419643 R64 B20 Human immunodeficiency virus infection 02742273 B20 Candidiasi s of the esophagus 17483128 B37.81 [id number] Cheryl Levin MD Main Office [address] [place] [address] 06/18/2024 10:10:09 06/18/2024 11:12:33 Cachexia associated with AIDS 391841003 R64 B20 Human immunodeficiency virus infection 71223363 B20 Inflammato ry disease of liver 627338294 K75.9 History of calculus of kidney 330250356 Z87.442 Aspiration pneumonia 422 368799 J69.0 Deep venou s thrombosis of lower extremity 059932386 I82.409 Pulmonary embolism 62315 003 I26.99 [id number] Cheryl Levin MD Main Office [address] [place] [address] 07/15/2024 15:10:10 07/15/2024 15:45:30 Cachexia associated with AIDS 811635598 R64 B20 Human immunodeficiency virus infection 30731320 B20 Candidiasi s of the esophagus 34359164 B37.81 Medication monitoring 39 8558553 Z51.81 Health Concerns Section Related Observation LastModified [...] REPLACEMENT/ADV ANTAGE - PPO) Benjamin Juan David [id number] [facility] 04/18/2024 1 [facility] [facility] - DOS ON OR AFTER 2022 - MEDICARE [place]VANTAGE [place] (MEDICARE REPLACEMENT/ADV ANTAGE - PPO) Benjamin Juan David [id number] [facility] 05/20/2024 1 [facility] [facility] - DOS ON OR AFTER 2022 - [place]/ADV ANTAGE - PPO) [facility] [id number] [facility] 06/18/2024 1 [facility] - DOS ON OR AFTER 2022 - [place]AGE [place]/ADV ANTAGE - PPO) [facility] [id number] [facility] 07/15/2024 1 [facility] - DOS ON OR AFTER 2022 - [place] ([place]PL[place]/ADV ANTAGE - PPO) [facility] [id number] [facility] Notes Date Note Type Note Provider [...] VL nondetetcted01/2024 HIV VL nondetcetd;eGFR=76;AST /ALT wnl;11/2023 ZM5=358; HIV VLnondetceted; no infections.01/2022 CB6=796; HIV VL nondetceted; eGFR>60; ALt/AST wnl; syphilis neg; GC/chlamydia neg Cheryl Levin MD [address] [place] [address], [phone], LYNN LEVIN MD [facility] 03/16/2024 22:34:36 04/18/2024 text/html HIVOn Biktarvy [...] ETOh use.reports was Hospitalized 3 days at [facility] this week with pneumonia 04/15- 04/17. discharge summary not available at time of visit. reports use of antibiotic; he says he was drinking shake in his bed and choked on it. dsicharge summery to be obtained. feels well. no SOB. no cough03/2024 HIV VL nondetctedHIV VL nondetetcted01/2024 HIV VL nondetcetd;eGFR=76;AST /ALT wnl;11/2023 EN3=379; HIV VLnondetceted; no infections.01/2022 OB5=895; HIV VL nondetceted; eGFR>60; ALt/AST wnl; syphilis neg; GC/chlamydia neg Cheryl Levin MD [address] [place] [address], [phone], [facility] CHERYL LEVIN MD [facility] 04/18/2024 14:20:48 05/20/2024 text/html HIVOn Biktarvy [...] VL nondetetcted01/2024 HIV VL nondetcetd;eGFR=76;AST /ALT wnl;11/2023 FM3=091; HIV VLnondetceted; no infections.01/2022 GH2=472; HIV VL nondetceted; eGFR>60; ALt/AST wnl; syphilis neg; GC/chlamydia neg Cheryl Levin MD [address] [place] [address], [phone], [facility] CHERYL LEVIN MD [facility] 05/20/2024 12:17:47 06/18/2024 text/html HIVOn Herbiearvy 1 tab po qd.reports daily compliance. denies missing dose.resolved thrush. hx recurrence. fluconazole and voriconazole on hold. Pt reports was hospitalized at [facility] 06/10/24-06/13/24 ( got to ER on 06/09/24); [...] VL nondetetcted01/2024 HIV VL nondetcetd;eGFR=76;AST /ALT wnl;11/2023 LG8=245; HIV VLnondetceted; no infections.01/2022 QT4=200; HIV VL nondetceted; eGFR>60; ALt/AST wnl; syphilis neg; GC/chlamydia neg Cheryl Levin MD [address] [place] [address], [phone], LYNN LEVIN MD [facility] 06/18/2024 18:19:56 07/15/2024 text/html HIVOn Biktarvy 1 tab po qd.reports daily compliance. denies missing dose.thrush on/off: recurrence. on clotrimazole daily .stable weight 120lbshe says he is eating more and apetitte has improvedfeels strongergetting serostim dailyno hospitalizations since he was last seenmed list reviewed.On Eliquis and enoxaparin. recent PE/DVT.VL nondetected03/2024 HIV VL nondetctedHIV VL nondetetcted01/2024 HIV VL nondetcetd;eGFR=76;AST /ALT wnl;11/2023 ZL5=421; HIV VLnondetceted; no infections. Cheryl Levin MD [address] [place] [address], [address], LYNN LEVIN MD [facility] 07/15/2024 15:47:48
--- OUTSIDE RECORDS SUMMARY | 2024-09-08 09:42 | XMS_ITS | Data Portability ---
Author Organization [facility] [employer] [facility], Main Office Address [address], [address] [place] [address] Care Team Providers Care Roll Weigher Name Role Phone BRENDAN HOLLINGSWORTH - 2ND FLOOR OTHER Assessment Encounter Date Assessment Date Assessment LastModified by Organization Details LastModified Time 09/18/2023 09/18/2023 45 minutes spent on coordination of discharge. [email or web address] Not available 09/18/2023 09:47:05 Plan of Treatment [...] and Address Organization Details Recorded Time Asthenia 49224734 Active 2022 MAURO DUFFY NP [address], [address], [place], [address], [facility] 3 12:08:07 Moderate protein-calori e malnutrition (weight for age 60-74 percent of standard) 627512824 Active 2022 MAURO DUFFY NP [address], [address], [place], [address], [facility] 3 12:08:23 Pneumonia 511869718 Active 2022 MAURO DUFFY NP [address], [address], [place], [address], [facility] 3 12:08:31 Pleural effusion 83036557 Active 2022 MAURO DUFFY NP [address], [address], [place], [address], [facility] [employer] 3 12:08:59 Hypertensive disorder 47834569 Active 2022 MAURO DUFFY NP [address], [address], [place], [address], [facility] [employer] [facility] 3 12:09:07 Human immunodeficien cy virus infection 91074479 Active 2022 MAURO DUFFY NP [address], [address], [place], [address], [facility] [employer] 3 12:09:12 Viral hepatitis C 87724511 Active 2022 MAURO DUFFY NP [address], [address], [place], [address], [facility] 3 12:09:28 Mixed anxiety and depressive disorder 825449557 Active 2022 MAURO DUFFY NP [address], [address], [place], [address], [facility] 3 12:09:40 Asthma 668593739 Active 2022 MAURO DUFFY NP [address], [address], [place], [address], [facility] 3 12:09:56 Acute dermatitis 59901316 Active 2022 MAURO DUFFY NP [address], [address], [place], [address], [facility] 3 12:14:27 Migraine 12162021 Active 2022 MAURO DUFFY NP [address], [address], [place], [address], [facility] 3 12:25:08 Non-traumatic rhabdomyolysis 499285014 Active 2022 Leilani Romeo MD [address], [address], [place], [address], [facility] 3 10:08:19 Moderate persistent asthma 512944260 Active 2022 Leilani Romeo MD [address], [address], [place], [address], [facility] 3 10:18:10 Insomnia 713420890 Active 2022 Leilani Romeo MD [address], [address], [place], [address], [facility] 3 10:19:09 Polysubstance abuse 653197229 Active 2022 Leilani Romeo MD [address], [address], [place], [address], [facility] 3 10:19:11 Adult failure to thrive syndrome 165893204 Active 2022 Maryjane Glover NP [address], [address], [place], [address], [facility] 3 13:27:15 Anemia 313231750 Active 2022 Maryjane Glover NP [address], [address], [place], [address], [facility] 3 13:30:43 Dysphagia 37432675 Active 2022 Leilani Romeo MD [address], [address], [place], [address], [facility] 3 20:51:38 Gastroesophage al reflux disease without esophagitis 373206648 Active 2022 Leilani Romeo MD [address], [address], [place], [address], [facility] 3 20:54:24 Chronic pain 07394511 Active 2022 Leilani Romeo MD [address], [address], [place], [address], [facility] 3 20:55:56 Problem Notes None recorded. Medical Equipment None Reported. Allergies Allergen ID Allergen Name Allergen Category Reaction Reaction Severity Criticality Documentation Date Start Date Code Code System Note Provider Name and Address Organization Details Recorded Time [id number] 4747008z4 2824e codeine medicatio n Not available Not available Not available 01/17/2023 2670 RxNorm rash Not Available Not Available Not Available [id number] 863526320 [id number] 2824e Levaquin medicatio n Not available Not available Not available 01/17/2023 32097 2 RxNorm rash Not Available Not Available Not Available [id number] 095810914 [id number] 2824e Reglan medicatio n Not available Not available Not available 01/17/2023 9230 RxNorm rash Not Available Not Available Not Available [id number] 943558301 [id number] 2824e ibuprofen medicatio n Not available Not available Not available 01/17/2023 5640 RxNorm reflu x Not Available Not Available Not Available [id number] 837026721 [id number] 2824e Medicinal product containin g penicilli n and acting as antibacte rial agent (product) medicatio n Not available Not available Not available 01/17/2023 96157 05 SNOMED rash Not Available Not Available Not Available [id number] 215971154 [id number] 2824e Ultram medicatio n Not available Not available Not available 01/17/2023 41740 6 RxNorm N/V Not Available Not Available Not Available [id number] 29b50 acetamino phen medicatio n other Not available unabletoasse 08/03/2023 161 RxNorm unkno wn Not Available Not Available Not Available [id number] 29b50 [employer] environme nt,medica tion other Not available unabletoasse 08/03/2023 27074 6 RxNorm unkno wn Not Available Not [...] Details Last Updated DateTime 3 167.64 cm 18166.5 4 g 17.4 kg/m2 86 /min 18 /min 97.6 [degF] 91 % 91 % 115 mm[Hg] 68 mm[Hg] Maryjane Glover NP [address], [address], [place], [address], [facility] 3 11:08:33 Date Recorded Body height Body weight Heart rate Respiratory rate Body temperature Oxygen saturation Oxygen saturation in Arterial blood by Pulse oximetry Systolic blood pressure Diastolic blood pressure Provider Name and Address Organization Details Last Updated DateTime 3 167.64 cm 93279.5 4 g 72 /min 18 /min 97.1 [degF] 96 % 96 % 115 mm[Hg] 68 mm[Hg] Maryjane Glover NP [address] [facility] [address], [place], [address], [facility] 3 13:10:32 Date Recorded Body height Body mass index (BMI) Body weight Heart rate Systolic blood pressure Diastolic blood pressure Provider Name and Address Organization Details Last Updated DateTime 3 167.64 cm 17.3 kg/m2 32344.3 8 g 74 /min 133 mm[Hg] 85 mm[Hg] Dilia Gonzalez [address], [address], [place], [address], [facility] 3 13:13:45 Date Recorded Body height Body weight Heart rate Respiratory rate Body temperature Oxygen saturation Oxygen saturation in Arterial blood by Pulse oximetry Systolic blood pressure Diastolic blood pressure Provider Name and Address Organization Details Last Updated DateTime 4 167.64 cm 45174.5 4 g 88 /min 18 /min 97.6 [degF] 96 % 96 % 133 mm[Hg] 85 mm[Hg] Maryjane Glover NP [address], [address], [place], [address], [facility] 4 19:10:48 Date Recorded Body height Heart rate Respiratory rate Body temperature Oxygen saturation Oxygen saturation in Arterial blood by Pulse oximetry Systolic blood pressure Diastolic blood pressure Provider Name and Address Organization Details Last Updated DateTime 4 167.64 cm 84 /min 18 /min 97.5 [degF] 98 % 98 % 133 mm[Hg] 85 mm[Hg] MAURO DUFFY NP [address], [address], [place], [address], [facility] 4 08:57:54 Social History Question Answer Notes LastModified by Organizat ion Details LastModified Time Tobacco Smoking Status Never Smoker MAURO DUFFY NP [address], [address], [place], [address], [facility] 01/17/2023 11:35:26 Do You Have An Advance Directive? Yes [email or web address] Information not available 01/17/2023 What Is Your Level Of Alcohol Consumption? None Information not available 01/17/2023 What Is Your Code Status? Full Code Information not available 01/17/2023 Where Do You Live? Apartment With Elevator, Family Near By, Helpful [email or web address] Information not available 01/17/2023 What Was The Date Of Your Most Recent Tobacco Screening? 08/03/2023 Information not available 08/03/2023 Do You Use Any Illicit Or Recreational Drugs? No Noted Past Use Cocaine Information not available 08/03/2023 Has Tobacco Cessation Counseling Been Provided? No [email or web address] Information not available 01/17/2023 Do You Or Have You Ever Used Any Other Forms Of Tobacco Or Nicotine? No [email or web address] Information not available 01/17/2023 Sex: Unknown Functional Status None recorded. Mental Status None recorded. Family History Relationship Description Onset Age of this Age Resolved Age Notes LastModified by Organization Details LastModified Time Mother Malignant tumor of lung [email or web address] Not available 2022 11:34:21 Medical History No medical history recorded. Immunizations Vaccine Type Date Status Note Provider Nam e and Address Organization Details Recorded Time COVID-19, mRNA, LNP-S, bivalent, PF, 50 mcg/0.5 mL or 25mcg/0.25 mL dose 2 completed Asia juarez [facility] 09/11/2023 13:44:56 COVID-19, mRNA, LNP-S, bivalent, PF, 50 mcg/0.5 mL or 25mcg/0.25 mL dose 3 completed Asia juarez, [facility] 09/11/2023 13:45:39 Pneumococcal conjugate PCV20, polysaccharide PDF899 conjugate, adjuvant, PF 3 [facility] 13:46:16 Influenza, adjuvanted, quadrivalent, PF 3 completed Asia Washburnin larry, [facility] 09/11/2023 13:46:36 Influenza, adjuvanted, quadrivalent, PF 2 completed Asia Washburnin [facility] 10/24/2023 13:13:32 Past Encounters Encounter ID Performer Location Encounter Start Date Encounter Closed Date Diagnosis/Indication Diagnosis SNOMED-CT Code Diagnosis ICD10 Code [id number] MAURO DUFFY NP [address] [address] 01/17/2023 11:16:19 01/22/2023 12:34:21 Pleural effusion 54142364 J90 Pneumonia 538230266 J18. 9 Asthenia 01524767 R53.1 Moderate protein-calorie malnutrition (weight for age 60-74 percent of standard) 059035742 E44.0 Hypertensive disorder 38 747214 I10 Human immunodeficiency virus infection 31375501 B20 Mixed anxi ety and depressive disorder 988228434 F41.8 Asthma 913851216 J45.90 9 Acute dermatitis 1739659 6 L30.9 Migraine 11708763 G43.90 9 [id number] Kenia Michaels MD [address] [address] 01/19/2023 07:22:18 01/22/2023 15:16:30 Pneumonia 805245882 J15.8 Asthenia 24012665 R53.1 Human immunodeficiency virus infection 71896394 B20 Essential hypertension 85028746 I10 Mixed anxi ety and depressive disorder 590006059 F41.8 Gastroesop hageal reflux disease without esophagitis 210869628 K21.9 Chronic pain 92572031 G8 9.29 [id number] Panchito Morales NP [facility] on [address] [place] [address] 06/30/2023 08:20:37 07/03/2023 11:44:52 Human immunodeficiency virus infection 69186204 B20 Hypertensive disorder 38 958596 I10 Mixed anxi ety and depressive disorder 011495996 F41.8 Viral hepatitis C 148507 07 B19.20 [id number] Leilani Romeo MD [facility] on [address] [place] [address] 07/02/2023 17:00:01 07/12/2023 14:37:46 Human immunodeficiency virus infection 76126456 B20 Hypertensive disorder 38 348621 I10 Mixed anxi ety and depressive disorder 608158988 F41.8 Viral hepatitis C 611409 07 B18.2 Acute chest pain 1782339 01 R07.89 Non-trauma tic rhabdomyolysis 294257037 M62.82 Moderate p ersistent asthma 641522530 J45.40 Polysubstance abuse 4452 06610 F19.10 Cough 25021766 R05.8 Insomnia 957071398 G47.0 9 [id number] MIGUEL BROWN [facility] on [address] [place] [address] 07/05/2023 08:16:20 07/12/2023 16:01:31 Mixed anxiety and depressive disorder 779466600 F41.8 Cough 21473681 R05.8 Polysubstance abuse 4452 01315 F19.10 [id number] TANGELA BARRETO [facility] on [address] [place] [address] 07/06/2023 09:35:29 07/12/2023 16:16:45 Mixed anxiety and depressive disorder 382040435 F41.8 Cough 34904841 R05.8 Acute dermatitis 0732166 6 L30.9 Asthma 096218487 J45.90 9 Human immunodeficiency virus infection 74218321 B20 Hypertensive disorder 38 573534 I10 Insomnia 491316698 G47.0 9 Migraine 50256656 G43.90 9 Viral hepatitis C 652941 07 B18.2 [id number] Maryjane Glover NP [address] [address] 08/03/2023 12:58:35 08/08/2023 10:07:33 Human immunodeficiency virus infection 34680696 B20 Asthenia 82159320 R53.1 Essential hypertension 23359081 I10 Mixed anxi ety and depressive disorder 259018133 F41.8 Gastroesop hageal reflux disease without esophagitis 558683584 K21.9 Chronic pain 42344877 G8 9.29 Polysubstance abuse 4452 67843 F19.10 Asthma 133477308 J45.90 9 Viral hepatitis C 485308 07 B18.2 Moderate protein-calorie malnutrition (weight for age 60-74 percent of standard) 652346958 E44.0 Anemia 220275402 D64.9 Adult fail ure to thrive syndrome 507975022 R62.7 Insomnia 595372475 G47.0 9 [id number] Leilani Romeo MD [facility] [address] 08/06/2023 16:28:34 08/08/2023 11:16:44 Adult failure to thrive syndrome 526580477 R62.7 Moderate protein-calorie malnutrition (weight for age 60-74 percent of standard) 380022067 E44.0 Human immunodeficiency virus infection 35521845 B20 Asthenia 85776160 R53.1 Essential hypertension 59504188 I10 Gastroesop hageal reflux disease without esophagitis 141178887 K21.9 Chronic pain 55835310 G8 9.29 Asthma 479520604 J45.30 Anemia 410880731 D64.89 Mixed anxi ety and depressive disorder 884372142 F41.8 Viral hepatitis C 169477 07 B18.2 Polysubstance abuse 4452 17874 F19.10 Dysphagia 71449125 R13.1 9 [id number] Maryjane Glover NP [facility] [address] 08/16/2023 12:26:03 08/22/2023 11:29:11 Adult failure to thrive syndrome 274133504 R62.7 Dysphagia 79678634 R13.1 9 Moderate protein-calorie malnutrition (weight for age 60-74 percent of standard) 860748097 E44.0 Human immunodeficiency virus infection 25002722 B20 Asthenia 45432563 R53.1 Essential hypertension 31351738 I10 Gastroesop hageal reflux disease without esophagitis 203715655 K21.9 Chronic pain 81849617 G8 9.29 Asthma 385212785 J45.30 Anemia 229101723 D64.89 Mixed anxi ety and depressive disorder 562138740 F41.8 Viral hepatitis C 521801 07 B18.2 Polysubstance abuse 4452 08108 F19.10 [id number] Maryjane Glover, LADAN [facility] [address] [address] 08/22/2023 11:06:38 08/28/2023 14:23:57 Adult failure to thrive syndrome 716474859 R62.7 Asthenia 89042139 R53.1 Dysphagia 68114930 R13.1 9 Anemia 756860677 D64.89 Moderate protein-calorie malnutrition (weight for age 60-74 percent of standard) 986335203 E44.0 Human immunodeficiency virus infection 40570634 B20 Essential hypertension 30207531 I10 Gastroesop hageal reflux disease without esophagitis 291176743 K21.9 Chronic pain 46636485 G8 9.29 Asthma 411014886 J45.30 Mixed anxi ety and depressive disorder 987361679 F41.8 [id number] Maryjane Glover NP [facility] [address] [address] 08/29/2023 08:14:48 08/30/2023 19:42:34 Adult failure to thrive syndrome 012556773 R62.7 Asthenia 29640406 R53.1 Dysphagia 80749061 R13.1 9 Anemia 441855402 D64.89 Moderate protein-calorie malnutrition (weight for age 60-74 percent of standard) 997850858 E44.0 Human immunodeficiency virus infection 91995745 B20 Essential hypertension 31037837 I10 Gastroesop hageal reflux disease without esophagitis 026143217 K21.9 Chronic pain 68123771 G8 9.29 Asthma 506198839 J45.30 Mixed anxi ety and depressive disorder 634755200 F41.8 Neck pain 17583664 M54.2 [id number] Dilia Schwarz- Jaymea [facility] [address] [address] 09/07/2023 05:15:43 09/13/2023 10:39:11 Adult failure to thrive syndrome 180136205 R62.7 Asthenia 51915200 R53.1 Dysphagia 48226175 R13.1 9 Anemia 246981394 D64.89 Moderate protein-calorie malnutrition (weight for age 60-74 percent of standard) 219118526 E44.0 Human immunodeficiency virus infection 02092194 B20 Essential hypertension 79642329 I10 Gastroesop hageal reflux disease without esophagitis 476867474 K21.9 Chronic pain 27512830 G8 9.29 Asthma 117862033 J45.30 Mixed anxi ety and depressive disorder 463873341 F41.8 [id number] Maryjane Glover NP [facility] [address] [address] 09/12/2023 18:08:08 09/14/2023 11:17:17 Adult failure to thrive syndrome 186495445 R62.7 Asthenia 81144816 R53.1 Dysphagia 08887129 R13.1 9 Moderate protein-calorie malnutrition (weight for age 60-74 percent of standard) 626103156 E44.0 Human immunodeficiency virus infection 18063474 B20 Essential hypertension 80207716 I10 Asthma 548758925 J45.30 Mixed anxi ety and depressive disorder 024930661 F41.8 [id number] MAURO DUFFY NP [facility] [address] 09/18/2023 08:57:08 09/25/2023 10:49:09 Adult failure to thrive syndrome 204584165 R62.7 Asthenia 12637801 R53.1 Dysphagia 09710128 R13.1 9 Moderate protein-calorie malnutrition (weight for age 60-74 percent of standard) 892909137 E44.0 Human immunodeficiency virus infection 77604593 B20 Essential hypertension 42321374 I10 Asthma 511494795 J45.30 Mixed anxi ety and depressive disorder 097826589 F41.8 Chronic pain 95518927 G8 9.29 Anemia 794542888 D64.89 Health Concerns Section Related Observation LastModified [...] & [place]V [place] - PPO) [facility] [id number] Benjamin Fall 08/29/2023 1 [employer] - DOS ON OR AFTER 2022 - MEDICARE ADVANTAGE [place]AC[place]/ADV ANTAGE - PPO) Benjamin Fall [id number] Benjamin Fall 09/07/2023 1 [employer] - DOS ON OR AFTER 2022 - [place]ICARE [place]AGE [place]V ANTAGE - PPO) Benjamin Fall [id number] [facility] 09/12/2023 1 [employer] - DOS ON OR AFTER 2022 - [place]IC[place]AGE [place]V ANTAGE - PPO) [facility] [id number] [facility] 09/18/2023 1 [facility] - DOS ON OR AFTER 2022 - MEDICARE AD[place]AGE [place] ([place]PL[place]EMENT/ADV ANTAGE - PPO) [facility] [id number] [facility] Notes Date Note Type Note [...] other concerns. Note: He was admitted to [facility] for similar concerns earlier this month [...] code signed 01/17/23 Maryjane Glover NP [address], [address], [place], [address], [facility] [employer] 08/22/2023 11:24:08 08/29/2023 text/html Patient seen for an 30 routine rounding visit. Past medical history significant for HIV, history of hep C, depression, asthma, history lung abscess 2020, fall, several overdoses noted in hx. dysphagia seen for difficulty swallowing ultimately diagnosed with failure to thrive and PEG tube placed. Benjamin was admitted to [facility] for difficulty swallowing and underwent EGD [...] from hospital to rehab. While here at [facility]: Pt is 107.6 lbs and this is [...] disconnect his feedings without difficulty here. Awaiting geriatric nurse practitioner to calculate bolus feedings and start them [...] code signed 01/17/23 Maryjane Glover NP [address], [address], [place], [address], [facility] 08/29/2023 13:39:07 09/07/2023 text/html Patient seen for [...] other concerns. Note: He was admitted to [facility] for similar concerns earlier this month [...] Full code signed 01/17/23 Dilia lloyd [address], [address], [place], [address], [facility] 09/07/2023 13:21:25 09/12/2023 text/html Patient seen for [...] code signed 01/17/23 Maryjane Glover, LADAN [address], [address], [place], [address], [facility] 09/12/2023 19:33:00 09/18/2023 text/html Benjamin is seen t heidy for discharge. He is going home today with support of services. He is a 58 yo man admitted to [facility] 08/02/23 from [facility] for continued care and rehab after a hospitalization related to malnutrition and FTT.He presented to [facility] 07/27 reporting throat pain and the inability to swallow.Swallowing issues problematic prior to this presentation, had EGD with Dr. Dodson 07/17, results c/w mild candidiasis normal stomach and duodenum. He was also seen by INTEGRATION MANAGER, diet changed to NND1 and nectar thick liquid. Due to ongoing swallowing issues at home, he returned to [facility].A g-tube was placed on 07/30, cause of dysphagia unclear. Kept NPO, and sent here for rehab. While here, Benjamin has done well.Worked with PT/OT, meeting goals for d/c home.Also worked with INTEGRATION MANAGER and geriatric nurse practitioner - now tolerating puree diet with thin [...] also, possibly inadvertently). MAURO DUFFY NP [address], [address], [place], [address], [facility] 09/18/2023 09:47:21
--- OUTSIDE RECORDS SUMMARY | 2024-09-08 09:43 | XMS_ITS | Continuity of Care Document ---
Author Organization LYNN WHITE MD [facility], Main Office Address [address] [place] [address] Assessment No assessment recorded. Plan of Treatment Reminders Order Date Submit Date Provider Last Modified By Organization Details Last Modified Time Details Appointments RESEARCH FOLLOW UP 2024 11:[address] MD Not available Not available Not available Lab None recorded . Referral None recorded . Procedures None recorded . Surgeries None recorded . Imaging electroc ardiogra m 2023 024 [facility], [address] [place] [address], [phone], 07/15/2024 15:47:38 Medication Orders None recorded . Patient TargetsNo targets recorded. Patient InstructionsNo instructions recorded. Reason for Referral None Reported. Results Created Date Observation Date Name Description Value Unit Range Abnormal Flag Note LastModifiedBy Organization Detail LastModifiedTime 06/18/2006/04/2024 US, abdom en, compl ete No observ ation record ed. [email or web address] [facility], [place], [id number], 06/18/2024 11:12:25 07/15/2007/15/2024 elect rocar diogr am No observ ation record ed. [facility] Main Office [address] [place] [address], [phone], 07/15/2024 17:12:05 07/17/20 elect rocar diogr am No observ ation record ed. [email or web address] Main Office [address] [place] [address], [phone], 07/17/2024 14:15:04 Result Notes None recorded. Problems Name Problem SNOMED Code Status Onset Date Resolution Date Notes Provider Name and Address Organization Details Recorded Time Asthma 567653054 Active 2006 Asthma; snomeddesc ription: Asthma; Report Immunity to Registry: Yes; Asthma; Report Immunity to Registry: Yes; ReasonDate : 10/13/2019 ; ; Start Date : 10/13/2019 Asthma; snomeddesc ription: Asthma; Report Immunity to Registry: Yes; Not Available [facility] 4 06:58:53 Male hypogonad ism 24578263 Active 2012 Male hypogonadi sm; snomeddesc ription: Male hypogonadi sm; Report Immunity to Registry: Yes; Not Available [facility] 4 06:58:53 Diarrhea 53271348 Active 2006 Diarrhea; snomeddesc ription: Diarrhea; Report Immunity to Registry: Yes; Diarrhea, unspecifie d; snomeddesc ription: Diarrhea; Report Immunity to Registry: Yes; Not Available [facility] 4 06:58:53 Substance abuse 54220837 Active 2006 Substance abuse; snomeddesc ription: Substance abuse; Report Immunity to Registry: Yes; Notes: opiate/suad jolene/benzo ; Not Available [facility] 4 06:58:53 Human immunodef iciency virus infection 49353198 Active 1991 Human immunodefi ciency virus [HIV] disease; snomeddesc ription: Human immunodefi ciency virus infection; Report Immunity to Registry: Yes; Human immunodefi ciency virus infection; snomeddesc ription: Human immunodefi ciency virus infection; Report Immunity to Registry: Yes; Not Available [facility] 4 06:58:53 Steatosis of liver 850397386 Active 2006 Steatosis of liver; snomeddesc ription: Steatosis of liver; Report Immunity to Registry: Yes; Notes: u/s 2021; Fatty (change of) liver, not elsewhere classified ; snomeddesc ription: Steatosis of liver; Report Immunity to Registry: Yes; Notes: u/s 2021; Not Available [facility] 4 06:58:53 Herpesvir us infection 93275679 Active 2009 Herpesvira l infection, unspecifie d; snomeddesc ription: Herpes simplex; Report Immunity to Registry: Yes; Notes: HSV 1 pos serology; HSV 2 neg serology; Not Available [facility] 4 06:58:53 Fibromyos itis 92812778 Active 2006 Myalgia and myositis, unspecifie d; snomeddesc ription: Fibromyalg ia; Report Immunity to Registry: Yes; Notes: Chronic pain multiple/c hronic back pain; Not Available [facility] 4 06:58:53 Herpes simplex 92727121 Active 2009 Herpes simplex; snomeddesc ription: Herpes simplex; Report Immunity to Registry: Yes; Notes: HSV 1 pos serology; HSV 2 neg serology; Not Available [facility] 4 06:58:54 Kidney stone 06212840 Active 2001 Calculus of kidney; snomeddesc ription: Kidney stone; Report Immunity to Registry: Yes; Kidney stone; snomeddesc ription: Kidney stone; Report Immunity to Registry: Yes; Not Available [facility] 4 06:58:54 History of calculus of kidney 524667093 Active 2001 History of calculus of kidney; snomeddesc ription: History of calculus of kidney; Report Immunity to Registry: Yes; Not Available [facility] 4 06:58:54 Type B viral hepatitis 36946652 Active 2006 Type B viral hepatitis; snomeddesc ription: Type B viral hepatitis; Report Immunity to Registry: Yes; Notes: core ab pos; s ag neg; s ab neg HBV vL nondetecte d 2016; 2017; Not Available [facility] 4 06:58:54 Hyperplas ia of prostate 842411124 Active 2014 Hyperplasi a of prostate, unspecifie d, without urinary obstructio n and other lower urinary symptoms (LUTS); snomeddesc ription: Hyperplasi a of prostate; Report Immunity to Registry: Yes; Hyperplas ia of prostate; snomeddesc ription: Hyperplasi a of prostate; Report Immunity to Registry: Yes; Not Available [facility] 4 06:58:54 Anxiety 92417689 Active 1996 Anxiety; snomeddesc ription: Anxiety; Report Immunity to Registry: Yes; Not Available [facility] 4 06:58:54 Testicula r hypofunct ion 480275610 Active 2012 Other testicular hypofuncti on; snomeddesc ription: Male hypogonadi sm; Report Immunity to Registry: Yes; Not Available [facility] 4 06:58:54 Seasonal allergic rhinitis 639109272 Active 2012 Other seasonal allergic rhinitis; snomeddesc ription: Seasonal allergy; Report Immunity to Registry: Yes; Notes: hx nasal congestion ; Not Available [facility] 4 06:58:54 Onychomyc osis due to dermatoph yte 840701722 Active 2017 Tinea unguium; snomeddesc ription: Onychomyco sis; Report Immunity to Registry: Yes; Notes: feet digits; Not Available [facility] 4 06:58:55 Sleep apnea 93772321 Active 1999 Sleep apnea; snomeddesc ription: Sleep apnea; Report Immunity to Registry: Yes; Unspecifi ed sleep apnea; snomeddesc ription: Sleep apnea; Report Immunity to Registry: Yes; Not Available [facility] 4 06:58:55 Psychoact marj substance abuse 74113261 Active 2006 Other psychoacti ve substance abuse, uncomplica lucho; snomeddesc ription: Substance abuse; Report Immunity to Registry: Yes; Notes: opiate/suad jolene/benzo ; Not Available [facility] 4 06:58:55 Viral hepatitis B without hepatic coma 582441899 Active 2006 Unspecifie d viral hepatitis B without hepatic coma; snomeddesc ription: Type B viral hepatitis; Report Immunity to Registry: Yes; Notes: core ab pos; s ag neg; s ab neg HBV vL nondetecte d 2016; 2017; Not Available [facility] 4 06:58:55 Blood chemistry outside reference range 114566800 Active 2012 Other specified abnormal findings of blood chemistry; snomeddesc ription: Decreased testostero ne level; Report Immunity to Registry: Yes; Notes: hypogoandi sm; Not Available [facility] 4 06:58:55 Arthritis 3963812 Active 1998 Arthritis; snomeddesc ription: Arthritis; Report Immunity to Registry: Yes; Notes: Osteoatrth ris multiple; Not Available [facility] 4 06:58:55 History of urinary stone 867544912 Active 2001 Personal history of urinary calculi; snomeddesc ription: History of calculus of kidney; Report Immunity to Registry: Yes; Not Available [facility] 4 06:58:56 Fibromyal mika 522612162 Active 2006 Fibromyalg ia; snomeddesc ription: Fibromyalg ia; Report Immunity to Registry: Yes; Notes: Chronic pain multiple/c hronic back pain; Not Available [facility] 4 06:58:56 Lyme disease 47537899 Active 2017 Lyme disease; Report Immunity to Registry: Yes; Notes: tx cefuroxime x14 d (hx all Doxy); Not Available [facility] 4 06:58:56 Headache 44115875 Active 2008 Headache; snomeddesc ription: Headache; Report Immunity to Registry: Yes; Notes: migraine; Headache; snomeddesc ription: Headache; Report Immunity to Registry: Yes; Notes: migraine; Not Available [facility] 4 06:58:56 Hypertens marj disorder 21122237 Active 2017 Hypertensi ve disorder; snomeddesc ription: Hypertensi ve disorder; Report Immunity to Registry: Yes; Not Available [facility] 4 06:58:56 Arthropat hy 144123432 Active 1998 Arthropath y, unspecifie d, site unspecifie d; snomeddesc ription: Arthritis; Report Immunity to Registry: Yes; Notes: Osteoatrth ris multiple; Not Available [facility] 4 06:58:56 Essential hypertens ion 35712795 Active 2017 Essential (primary) hypertensi on; snomeddesc ription: Hypertensi ve disorder; Report Immunity to Registry: Yes; Not Available [facility] 4 06:58:57 Testoster one level below reference range 747449635 Active 2012 Decreased testostero ne level; snomeddesc ription: Decreased testostero ne level; Report Immunity to Registry: Yes; Notes: hypogoandi sm; Not Available [facility] 4 06:58:57 Insomnia 011184381 Active 1996 Insomnia; Report Immunity to Registry: Yes; Not Available [facility] 4 06:58:57 Anxiety state 815256175 Active 1996 Anxiety state, unspecifie d; snomeddesc ription: Anxiety; Report Immunity to Registry: Yes; Not Available [facility] 4 06:58:57 Onychomyc osis 703367514 Active 2017 Onychomyco sis; snomeddesc ription: Onychomyco sis; Report Immunity to Registry: Yes; Notes: feet digits; Not Available [facility] 4 06:58:57 Chronic hepatitis C 313741836 Active 2006 Chronic hepatitis C without mention [...] neg 2015;2017; 12/2021 F2 ; Not Available [facility] 4 06:58:57 Depressiv e disorder 80105653 Active 1996 Depressive disorder, not elsewhere classified ; snomeddesc ription: Depressive disorder; Report Immunity to Registry: Yes; Depressiv e disorder; snomeddesc ription: Depressive disorder; Report Immunity to Registry: Yes; Not Available [facility] 4 06:58:58 Seasonal allergy 869924123 Active 2012 Seasonal allergy; snomeddesc ription: Seasonal allergy; Report Immunity to Registry: Yes; Notes: hx nasal congestion ; Not Available [facility] 4 06:58:58 Loss of appetite 89373584 Active 2012 Anorexia; snomeddesc ription: Loss of appetite; Report Immunity to Registry: Yes; Loss of appetite; snomeddesc ription: Loss of appetite; Report Immunity to Registry: Yes; Not Available [facility] 4 06:58:58 Seizure 72699554 Active 2000 Seizure; snomeddesc ription: Seizure; Report [...] Report Immunity to Registry: Yes; Not Available [facility] 4 06:58:58 Problem Notes None recorded. Procedures Surgical History None recorded. Imaging Results Imaging Date Name Status LastModified by Organization Details LastModified Time 07/15/2024 [facility] [address], [address], 07/15/2024 17:12:05 Procedure Notes None recorded. Medical Equipment None Reported. Allergies Allergen ID Allergen Name Allergen Category Reaction Reaction Severity Criticality Documentation Date Start Date Code Code System Note Provider Name and Address Organization Details Recorded Time 714 Reglan medicatio n Not available Not available Not available 10/31/20232012 9230 RxNorm Comme nt: adver se_ev ent_t ype: 49478 8002; ; Not Available [facility] 4 06:50:47 715 Motrin medicatio n Not available Not available Not available 10/31/2023201248 8 RxNorm Comme nt: adver se_ev ent_t ype: 46233 8002; ; Not Available [facility] 4 06:50:47 716 doxycycli ne Not available Not available Not available Not available 10/31/20232017 3640 RxNorm Comme nt: telma se_ev ent_t ype: 69129 8002; ; Not Available [facility] 4 06:50:47 Medications Name Sig Start [...] Available Liquid Nutrition oral 0 Quantity : 62217; Duration : 30; 0 refill(s ) 09/30 [...] : 30; VACCINE_ IND: no; SU_FULL_ NAME: Cherly scales; Not Available Not Available Not Available [...] ccal conjugat e PCV 13; SU_FULL_ NAME: Stacia scales Cheryl; Not Available Not Available Not [...] : 30; VACCINE_ IND: no; SU_FULL_ NAME: Cherly Palomo yordy; Not Available Not Available Not [...] Pneumoco ccal conjugat e PCV20, polysacc haride [id number] conjugat e, adjuvant , PF; Not Available Not Available Not Available Vitals Date Recorded Body height Provider Name an d Address Organization Details Last Updated DateTime 07/15/[address] MD [facility] 07/15/2024 15:22:29 Date Recorded Body temperature Body mass index (BMI) Body weight Respiratory rate Heart rate Systolic blood pressure Diastolic blood pressure Provider Name and Address Organization Details Last Updated DateTime 98.7 [degF] 20.6 kg/m2 73554.0 8 g 20 /min 87 /min 120 mm[Hg] 80 mm[Hg] Cheryl Street MD [address] [place] [address] marcie, [place], [phone], [address] MD [facility] 15:46:02 Social History None recorded. Functional Status None recorded. Mental Status None recorded. Family History Nothing Reported Notes:High cholesterol, Resp onse Property: Yes; , Cancer, other unspecified, Response Property: Yes; , Diabetes, Response Property: Yes; Medical History No medical history recorded. Immunizations Vaccine Type Date Status Note Provider Nam e and Address Organization Details Recorded Time Meningococcal MCV4O 9 completed Not Available [facility] 10/31/2023 06:54:49 zoster live 9 completed Not Available [facility] 10/31/2023 06:54:50 Influenza, split virus, quadrivalent, preservative 9 completed Not Available [facility] 10/31/2023 06:54:50 Influenza, split virus, quadrivalent, preservative 8 completed Not Available [facility] 10/31/2023 06:54:50 Influenza, split virus, quadrivalent, preservative 0 completed Not Available [facility] 10/31/2023 06:54:50 Past Encounters Encounter ID Performer Location Encounter Start Date Encounter Closed Date Diagnosis/Indication Diagnosis SNOMED-CT Code Diagnosis ICD10 Code [id number] MD Main Office [address] [place] [address] 06/18/2024 10:10:09 06/18/2024 11:12:33 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 B20 Human immunodeficiency virus infection 87345074 B20 Inflammato ry disease of liver 944343169 K75.9 History of calculus of kidney 551103569 Z87.442 Aspiration pneumonia 422 139494 J69.0 Deep venou s thrombosis of lower extremity 179846142 I82.409 Pulmonary embolism 61321 [id number] MD Main Office [address] [place] [address] 07/15/2024 15:10:10 07/15/2024 15:45:30 Cachexia associated with AIDS 636898551 R64 B20 Human immunodeficiency virus infection 18597981 B20 Candidiasi s of the esophagus 80672861 B37.81 Medication monitoring 39 2951924 Z51.81 Health Concerns Section Related Observation LastModified by Organization Detai ls LastModified Time None Recorded Concern Status LastModified by Organization Details LastModified Time None Recorded Payers Encounter Date Sequence Insurance Name Policy Number Policy Perry Covered Member ID Perry Member ID Guarantor Name 07/15/2024 1 [facility] - DOS ON OR AFTER 2022 - MEDICARE [place]VANTAGE [place] (MEDICARE REPLACEMENT/ADV ANTAGE - PPO) Benjamin Fall [id number] Benjamin Fall Notes Date Note Type Note [...] VL nondetetcted01/2024 HIV VL nondetcetd;eGFR=76;AST /ALT wnl;11/2023 OT4=134; HIV VLnondetceted; no infections. Cheryl Street MD [address] [place] [address], [phone], [address] - [address] MD [facility] 07/15/2024 15:47:48
--- OUTSIDE RECORDS SUMMARY | 2024-09-08 09:43 | XMS_ITS | Continuity of Care Document ---
Author Organization LYNN WHTIE MD [facility], Main Office Address [address] [place] [address] Assessment No assessment recorded. Plan of Treatment Reminders Order Date Submit Date Provider Last Modified By Organization Details Last Modified Time Details Appointments RESEARCH FOLLOW UP 2024 11:00A M [address] MD Not available Not available Not available Lab None recorded. Referral None recorded. Procedures None recorded. Surgeries None recorded. Imaging None recorded. Medication Orders None recorded. Patient TargetsNo targets recorded. Patient InstructionsNo instructions recorded. Reason for Referral None Reported. Results Created Date Observation Date Name Description Value Unit Range Abnormal Flag Note LastModifiedBy Organization Detail LastModifiedTime 06/18/2006/04/2024 US, abdom en, compl ete No observ ation record ed. [email or web address] [facility], [place], [address], 06/18/2024 11:12:25 07/15/20 24 07/15/2024 elect rocar diogr am No observ ation record ed. [email or web address] Main Office [address] [place], [address], 07/15/2024 17:12:05 07/17/20 elect rocar diogr am No observ ation record ed. Main Office [address] [place] [address], [phone], 07/17/2024 14:15:04 Result Notes None recorded. Problems Name Problem SNOMED Code Status Onset Date Resolution Date Notes Provider Name and Address Organization Details Recorded Time Asthma 759074372 Active 2006 Asthma; snomeddesc ription: Asthma; Report Immunity to Registry: Yes; Asthma; Report Immunity to Registry: Yes; ReasonDate : 10/13/2019 ; ; Start Date : 10/13/2019 Asthma; snomeddesc ription: Asthma; Report Immunity to Registry: Yes; Not Available [facility] 4 06:58:53 Male hypogonad ism 93884571 Active 2012 Male hypogonadi sm; snomeddesc ription: Male hypogonadi sm; Report Immunity to Registry: Yes; Not Available [facility] 4 06:58:53 Diarrhea 78085754 Active 2006 Diarrhea; snomeddesc ription: Diarrhea; Report Immunity to Registry: Yes; Diarrhea, unspecifie d; snomeddesc ription: Diarrhea; Report Immunity to Registry: Yes; Not Available [facility] 4 06:58:53 Substance abuse 49628395 Active 2006 Substance abuse; snomeddesc ription: Substance abuse; Report Immunity to Registry: Yes; Notes: opiate/suad jolene/benzo ; Not Available [facility] 4 06:58:53 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 Human immunodefi ciency virus [HIV] disease; snomeddesc ription: Human immunodefi ciency virus infection; Report Immunity to Registry: Yes; Human immunodefi ciency virus infection; snomeddesc ription: Human immunodefi ciency virus infection; Report Immunity to Registry: Yes; Not Available [facility] 4 06:58:53 Steatosis of liver 037349140 Active 2006 Steatosis of liver; snomeddesc ription: Steatosis of liver; Report Immunity to Registry: Yes; Notes: u/s 2021; Fatty (change of) liver, not elsewhere classified ; snomeddesc ription: Steatosis of liver; Report Immunity to Registry: Yes; Notes: u/s 2021; Not Available [facility] 4 06:58:53 Herpesvir us infection 38700304 Active 2009 Herpesvira l infection, unspecifie d; snomeddesc ription: Herpes simplex; Report Immunity to Registry: Yes; Notes: HSV 1 pos serology; HSV 2 neg serology; Not Available [facility] 4 06:58:53 Fibromyos itis 67287500 Active 2006 Myalgia and myositis, unspecifie d; snomeddesc ription: Fibromyalg ia; Report Immunity to Registry: Yes; Notes: Chronic pain multiple/c hronic back pain; Not Available [facility] 4 06:58:53 Herpes simplex 99860230 Active 2009 Herpes simplex; snomeddesc ription: Herpes simplex; Report Immunity to Registry: Yes; Notes: HSV 1 pos serology; HSV 2 neg serology; Not Available [facility] 4 06:58:54 Kidney stone 12175611 Active 2001 Calculus of kidney; snomeddesc ription: Kidney stone; Report Immunity to Registry: Yes; Kidney stone; snomeddesc ription: Kidney stone; Report Immunity to Registry: Yes; Not Available [facility] 4 06:58:54 History of calculus of kidney 662332311 Active 2001 History of calculus of kidney; snomeddesc ription: History of calculus of kidney; Report Immunity to Registry: Yes; Not Available [facility] 4 06:58:54 Type B viral hepatitis 90172605 Active 2006 Type B viral hepatitis; snomeddesc ription: Type B viral hepatitis; Report Immunity to Registry: Yes; Notes: core ab pos; s ag neg; s ab neg HBV vL nondetecte d 2016; 2017; Not Available [facility] 4 06:58:54 Hyperplas ia of prostate 440529855 Active 2014 Hyperplasi a of prostate, unspecifie d, without urinary obstructio n and other lower urinary symptoms (LUTS); snomeddesc ription: Hyperplasi a of prostate; Report Immunity to Registry: Yes; Hyperplas ia of prostate; snomeddesc ription: Hyperplasi a of prostate; Report Immunity to Registry: Yes; Not Available [facility] 4 06:58:54 Anxiety 82093567 Active 1996 Anxiety; snomeddesc ription: Anxiety; Report Immunity to Registry: Yes; Not Available [facility] 4 06:58:54 Testicula r hypofunct ion 906123110 Active 2012 Other testicular hypofuncti on; snomeddesc ription: Male hypogonadi sm; Report Immunity to Registry: Yes; Not Available [facility] 4 06:58:54 Seasonal allergic rhinitis 752573632 Active 2012 Other seasonal allergic rhinitis; snomeddesc ription: Seasonal allergy; Report Immunity to Registry: Yes; Notes: hx nasal congestion ; Not Available [facility] 4 06:58:54 Onychomyc osis due to dermatoph yte 216452571 Active 2017 Tinea unguium; snomeddesc ription: Onychomyco sis; Report Immunity to Registry: Yes; Notes: feet digits; Not Available [facility] 4 06:58:55 Sleep apnea 98554269 Active 1999 Sleep apnea; snomeddesc ription: Sleep apnea; Report Immunity to Registry: Yes; Unspecifi ed sleep apnea; snomeddesc ription: Sleep apnea; Report Immunity to Registry: Yes; Not Available [facility] 4 06:58:55 Psychoact marj substance abuse 56985477 Active 2006 Other psychoacti ve substance abuse, uncomplica lucho; snomeddesc ription: Substance abuse; Report Immunity to Registry: Yes; Notes: opiate/suad jolene/benzo ; Not Available [facility] 4 06:58:55 Viral hepatitis B without hepatic coma 714245538 Active 2006 Unspecifie d viral hepatitis B without hepatic coma; snomeddesc ription: Type B viral hepatitis; Report Immunity to Registry: Yes; Notes: core ab pos; s ag neg; s ab neg HBV vL nondetecte d 2016; 2017; Not Available [facility] 4 06:58:55 Blood chemistry outside reference range 882116670 Active 2012 Other specified abnormal findings of blood chemistry; snomeddesc ription: Decreased testostero ne level; Report Immunity to Registry: Yes; Notes: hypogoandi sm; Not Available [facility] 4 06:58:55 Arthritis 1609069 Active 1998 Arthritis; snomeddesc ription: Arthritis; Report Immunity to Registry: Yes; Notes: Osteoatrth ris multiple; Not Available [facility] 4 06:58:55 History of urinary stone 362257988 Active 2001 Personal history of urinary calculi; snomeddesc ription: History of calculus of kidney; Report Immunity to Registry: Yes; Not Available [facility] 4 06:58:56 Fibromyal mika 212247388 Active 2006 Fibromyalg ia; snomeddesc ription: Fibromyalg ia; Report Immunity to Registry: Yes; Notes: Chronic pain multiple/c hronic back pain; Not Available [facility] 4 06:58:56 Lyme disease 29543722 Active 2017 Lyme disease; Report Immunity to Registry: Yes; Notes: tx cefuroxime x14 d (hx all Doxy); Not Available [facility] 4 06:58:56 Headache 56987887 Active 2008 Headache; snomeddesc ription: Headache; Report Immunity to Registry: Yes; Notes: migraine; Headache; snomeddesc ription: Headache; Report Immunity to Registry: Yes; Notes: migraine; Not Available [facility] 4 06:58:56 Hypertens marj disorder 07335602 Active 2017 Hypertensi ve disorder; snomeddesc ription: Hypertensi ve disorder; Report Immunity to Registry: Yes; Not Available [facility] 4 06:58:56 Arthropat hy 508262450 Active 1998 Arthropath y, unspecifie d, site unspecifie d; snomeddesc ription: Arthritis; Report Immunity to Registry: Yes; Notes: Osteoatrth ris multiple; Not Available [facility] 4 06:58:56 Essential hypertens ion 56974330 Active 2017 Essential (primary) hypertensi on; snomeddesc ription: Hypertensi ve disorder; Report Immunity to Registry: Yes; Not Available [facility] 4 06:58:57 Testoster one level below reference range 584328102 Active 2012 Decreased testostero ne level; snomeddesc ription: Decreased testostero ne level; Report Immunity to Registry: Yes; Notes: hypogoandi sm; Not Available [facility] 4 06:58:57 Insomnia 244326312 Active 1996 Insomnia; Report Immunity to Registry: Yes; Not Available [facility] 4 06:58:57 Anxiety state 584436415 Active 1996 Anxiety state, unspecifie d; snomeddesc ription: Anxiety; Report Immunity to Registry: Yes; Not Available [facility] 4 06:58:57 Onychomyc osis 157703520 Active 2017 Onychomyco sis; snomeddesc ription: Onychomyco sis; Report Immunity to Registry: Yes; Notes: feet digits; Not Available [facility] 4 06:58:57 Chronic hepatitis C 103871027 Active 2006 Chronic hepatitis C without mention of hepatic coma; snomeddesc ription: Chronic hepatitis C; Report Immunity to Registry: Yes; Notes: F0 2011; CC IL28; g1a EOT 10/14 s/p 24 weeks tx Ribapak 1200mg po qd and Sovaldi 24 weeks SVR /15 HCV VL neg 2015;2017; 12/2021 F2 ; Chronic hepatitis C; snomeddesc ription: Chronic hepatitis C; Report Immunity to Registry: Yes; Notes: F0 2011; CC IL28; g1a EOT 10/ s/p 24 weeks tx Ribapak 1200mg po qd and Sovaldi 24 weeks SVR /15 HCV VL neg 2015;2017; 12/2021 F2 ; Not Available [facility] 4 06:58:57 Depressiv e disorder 06736274 Active 1996 Depressive disorder, not elsewhere classified ; snomeddesc ription: Depressive disorder; Report Immunity to Registry: Yes; Depressiv e disorder; snomeddesc ription: Depressive disorder; Report Immunity to Registry: Yes; Not Available [facility] 4 06:58:58 Seasonal allergy 491682710 Active 2012 Seasonal allergy; snomeddesc ription: Seasonal allergy; Report Immunity to Registry: Yes; Notes: hx nasal congestion ; Not Available [facility] 4 06:58:58 Loss of appetite 28959919 Active 2012 Anorexia; snomeddesc ription: Loss of appetite; Report Immunity to Registry: Yes; Loss of appetite; snomeddesc ription: Loss of appetite; Report Immunity to Registry: Yes; Not Available [facility] 4 06:58:58 Seizure 34962248 Active 2000 Seizure; snomeddesc ription: Seizure; Report [...] Report Immunity to Registry: Yes; Not Available [facility] 4 06:58:58 Problem Notes None recorded. Medical Equipment None Reported. Allergies Allergen ID Allergen Name Allergen Category Reaction Reaction Severity Criticality Documentation Date Start Date Code Code System Note Provider Name and Address Organization Details Recorded Time 714 Reglan medicatio n Not available Not available Not available 10/31/20232012 9230 RxNorm Comme nt: adver se_ev ent_t ype: 59830 8002; ; Not Available [facility] 4 06:50:47 715 Motrin medicatio n Not available Not available Not available 10/31/2023201248 8 RxNorm Comme nt: adver se_ev ent_t ype: 80823 8002; ; Not Available [facility] 4 06:50:47 716 doxycycli ne Not available Not available Not available Not available 10/31/20232017 3640 RxNorm Comme nt: adver se_ev ent_t ype: 64232 8002; ; Not Available [facility] 4 06:50:47 Medications Name Sig Start Date Stop Date Status Note LastModified by Organization Details LastModified Time multivita min tablet Multiple Vitamins Quantity : 30; 3 refill(s ) 12/01 completed Frequenc y: qd; VACCINE_ IND: no; SU_FULL_ NAME: Fabiola scales; Not Available Not Available Not Available [...] y: qd; VACCINE_ IND: no; SU_FULL_ NAME: Fabiola scales; Not Available Not Available Not Available [...] : 30; VACCINE_ IND: no; SU_FULL_ NAME: Fabiola Taylorsusan scales; Not Available Not Available Not [...] pneumoco ccal polysacc haride PPV23; SU_FULL_ NAME: Fabiola Taylorsusan scales; Not Available Not Available Not Available Topamax 25 mg tablet 25 mg Quantity : 30; 0 refill(s ) 12/01 completed Frequenc y: qd; VACCINE_ IND: no; SU_FULL_ NAME: Fabiola scales; Not Available Not Available Not Available [...] y: qd; VACCINE_ IND: no; SU_FULL_ NAME: Fabiola scales; Not Available Not Available Not Available [...] 05/06 completed VACCINE_ IND: no; SU_FULL_ NAME: Fabiola scales; Not Available Not Available Not Available [...] : 30; VACCINE_ IND: no; SU_FULL_ NAME: Fabiola scales; Not Available Not Available Not Available amlodipin e 5 mg tablet TOME 1 TABLETA POR V A ORAL TODOS LOS D active Not Available Not Available No t Available prochlorp erazine maleate 10 mg tablet 10 mg Quantity : 90; 3 refill(s ) 09/27 completed Frequenc y: tid; VACCINE_ IND: no; SU_FULL_ NAME: Fabiola scales; Not Available Not Available Not Available [...] : 30; VACCINE_ IND: no; SU_FULL_ NAME: Fabiola scales; Not Available Not Available Not Available [...] y: qd; VACCINE_ IND: no; SU_FULL_ NAME: Fabiola scales; Not Available Not Available Not Available Imodium A-D 2 mg tablet 1 tab po qd PRN for diarrhea 04/02 completed Duration : 30; VACCINE_ IND: no; SU_FULL_ NAME: Fabiola scales; Not Available Not Available Not Available [...] y: q1mo; VACCINE_ IND: no; SU_FULL_ NAME: Fabiola scales; Not Available Not Available Not Available mirtazapi ne 30 mg tablet TAKE 2 TABLETS (60 MG) BY MOUTH AT BEDTIME. active Not Available Not Available No t Available dapsone 100 mg tablet 100 mg Quantity : 30; 3 refill(s ) 12/27 completed Frequenc y: qd; VACCINE_ IND: no; SU_FULL_ NAME: Fabiola scales; Not Available Not Available Not Available oseltamiv ir 75 mg capsule TAKE ONE CAPSULE BY MOUTH EVERY 12 HOURS FOR 5 DAYS 10/13 completed Duration : 5; VACCINE_ IND: no; Not Available Not Available Not Available ferrous sulfate 325 mg (65 mg iron) tablet 325 mg Quantity : 90; 3 refill(s ) 09/25 completed Frequenc y: tid; VACCINE_ IND: no; SU_FULL_ NAME: Fabiola scales; Not Available Not Available Not Available [...] y: qd; VACCINE_ IND: no; SU_FULL_ NAME: Fabiola scales; Not Available Not Available Not Available diclofena c sodium 75 mg tablet,de layed release TAB 75MG DR; Quantity : 60; Duration : 30; 0 refill(s ) 02/07 completed Duration : 30; VACCINE_ IND: no; Not Available Not Available Not Available folic acid 1 mg tablet TAKE ONE TABLET DAILY 09/25 completed VACCINE_ IND: no; SU_FULL_ NAME: Fabiola scales; Not Available Not Available Not Available Liquid Nutrition oral 0 Quantity : 34890; Duration : 30; 0 refill(s ) 09/30 [...] : 30; VACCINE_ IND: no; SU_FULL_ NAME: Fabiola scales; Not Available Not Available Not Available [...] : 30; VACCINE_ IND: no; SU_FULL_ NAME: Fabiola scales; Not Available Not Available Not Available [...] y: bid; VACCINE_ IND: no; SU_FULL_ NAME: Fabiola scales; Not Available Not Available Not Available [...] : 30; VACCINE_ IND: no; SU_FULL_ NAME: Fabiola scales; Not Available Not Available Not Available [...] yes; VACCINE_ NAME: zoster live; SU_FULL_ NAME: Fabiola scales; VIS_DATE : 04:00:00 .0; Not Available [...] : 30; VACCINE_ IND: no; SU_FULL_ NAME: Fabiola scales; Not Available Not Available Not Available [...] 09/30 completed VACCINE_ IND: no; SU_FULL_ NAME: Fabiola csales; Not Available Not Available Not Available Chest [...] y: qd; VACCINE_ IND: no; SU_FULL_ NAME: Fbaiola scales; Not Available Not Available Not Available blood pressure test kit-large cuff USE TO CHECK BLOOD PRESSURE EVERY MORNING active Not Available Not Available No t Available Luis A-C-Y-W-1 35-Dip (PF) 10 mcg-5 mcg/0.5 mL IM kit (2 vials) - Quantity : ; 0 refill(s ) 2018 active VACCINE_ IND: yes; VACCINE_ NAME: Meningoc occal MCV4O; SU_FULL_ NAME: Fabiola scales; VIS_DATE : 14:17:37 .0; Not Available Not Available Not Available Prevnar 13 (PF) 0.5 mL intramusc ular syringe - Quantity : ; Duration : 30; 0 refill(s ) 12/31 completed Duration : 30; VACCINE_ IND: yes; VACCINE_ NAME: Pneumoco ccal conjugat e PCV 13; SU_FULL_ NAME: Fabiola Reed; Not Available Not Available Not Available Сергейitusgrant n DM To Go 5cc p qid as needed 10/12 completed VACCINE_ IND: no; SU_FULL_ NAME: Fabiola scales; Not Available Not Available Not Available [...] a, seasonal , injectab le; SU_FULL_ NAME: Fabiola Reed; Not Available Not Available Not Available [...] 02/25 completed VACCINE_ IND: no; SU_FULL_ NAME: Fabiola scales; Not Available Not Available Not Available [...] : 30; VACCINE_ IND: no; SU_FULL_ NAME: Fabiola scales; Not Available Not Available Not Available [...] a, seasonal , injectab le; SU_FULL_ NAME: Fabiola scales; Not Available Not Available Not Available [...] : 30; VACCINE_ IND: no; SU_FULL_ NAME: Fabiola scales; Not Available Not Available Not Available Fluvirin 45 mcg (15 mcg x 3)/0.5 mL intramusc ular suspensio n trivalen t Quantity : ; 0 refill(s ) 05/15 completed VACCINE_ IND: yes; VACCINE_ NAME: Influenz a, seasonal , injectab le; SU_FULL_ NAME: Fabiola scales; Not Available Not Available Not Available Mytesi 125 mg tablet,de layed release 125 mg Quantity : 60; Duration : 30; 2 refill(s ) 10/13 completed Frequenc y: bid; Duration : 30; VACCINE_ IND: no; SU_FULL_ NAME: Fabiola scales; Not Available Not Available Not Available [...] a, injectab le, quadriva lent; SU_FULL_ NAME: Fabiola scales; VIS_DATE : 19:25:45 .0; Not Available Not Available Not Available Afluria Quad 60 mcg (15 mcg x 4)/0.5 mL intramusc ular susp. quadriva lent Quantity : ; 0 refill(s ) 2018 active VACCINE_ IND: yes; VACCINE_ NAME: influenz a, injectab le, quadriva lent; SU_FULL_ NAME: Fabiola Palomo yordy; VIS_DATE : 05:00:00 .0; Not Available Not Available Not Available Afluria Quad 60 mcg (15 mcg x 4)/0.5 mL intramusc ular susp. quadriva lent Quantity : ; 0 refill(s ) 2019 active VACCINE_ IND: yes; VACCINE_ NAME: influenz a, injectab le, quadriva lent; SU_FULL_ NAME: Fabiola scales; VIS_DATE : 14:37:48 .0; Not Available Not Available Not Available Prevnar 20 (PF) 0.5 mL intramusc ular syringe - Quantity : ; 0 refill(s ) 2022 active VACCINE_ IND: yes; VACCINE_ NAME: Pneumoco ccal conjugat e PCV20, polysacc haride [id number] conjugat e, adjuvant , PF; Not Available Not Available Not Available Vitals Date Recorded Body height Heart rate Respiratory rate Body temperature Body mass index (BMI) Body weight Systolic blood pressure Diastolic blood pressure Provider Name and Address Organization Details Last Updated DateTime 4 162.56 cm 89 /min 16 /min 98 [degF] 20.6 kg/m2 64213.0 8 g 123 mm[Hg] 90 mm[Hg] [place] STRE[address] MD [facility] 4 14:28:38 Social History None recorded. Functional Status None recorded. Mental Status None recorded. Family History Nothing Reported Notes:High cholesterol, Resp onse Property: Yes; , Cancer, other unspecified, Response Property: Yes; , Diabetes, Response Property: Yes; Medical History No medical history recorded. Immunizations Vaccine Type Date Status Note Provider Nam e and Address Organization Details Recorded Time Meningococcal MCV4O 9 completed Not Available [facility] 10/31/2023 06:54:49 zoster live 9 completed Not Available [facility] 10/31/2023 06:54:50 Influenza, split virus, quadrivalent, preservative 9 completed Not Available [facility] 10/31/2023 06:54:50 Influenza, split virus, quadrivalent, preservative 8 completed Not Available [facility] 10/31/2023 06:54:50 Influenza, split virus, quadrivalent, preservative 0 completed Not Available [facility] 10/31/2023 06:54:50 Past Encounters Encounter ID Performer Location Encounter Start Date Encounter Closed Date Diagnosis/Indication Diagnosis SNOMED-CT Code Diagnosis ICD10 Code [id number] MD Main Office [address] [place] [address] 05/20/2024 10:17:53 05/20/2024 12:44:49 Cachexia associated with AIDS 602080096 R64 B20 Human immunodeficiency virus infection 36922940 B20 Candidiasi s of the esophagus 37859752 B37.[address] MD Main Office [address] [place] [address] 06/18/2024 10:10:09 06/18/2024 11:12:33 Cachexia associated with AIDS 715340221 R64 B20 Human immunodeficiency virus infection 43532480 B20 Inflammato ry disease of liver 880223270 K75.9 History of calculus of kidney 487928068 Z87.442 Aspiration pneumonia 422 152237 J69.0 Deep venou s thrombosis of lower extremity 485038304 I82.409 Pulmonary embolism 04753 003 I26.99 Health Concerns Section Related Observation LastModified by Organization Detai ls LastModified Time None Recorded Concern Status LastModified by Organization Details LastModified Time None Recorded Payers Encounter Date Sequence Insurance Name Policy Number Policy Perry Covered Member ID Perry Member ID Guarantor Name 06/18/2024 1 [facility] - DOS ON OR AFTER 2022 - MEDICARE [place]VANTAGE [place] (MEDICARE REPLACEMENT/ADV ANTAGE - PPO) [facility] Juan David [id number] [facility] David Notes Date Note Type Note Provider Name and Address Organization Details Recorded Time 06/18/2024 text/html HIVOn Biktarvy 1 tab po qd.reports daily compliance. denies missing dose.resolved thrush. hx recurrence. fluconazole and voriconazole on hold. Pt reports was hospitalized at [facility] 06/10/24-06/13/24 ( got to ER on 06/09/24); developed chest pain and cough for 2 days; left leg swollen x 2 days: CT Angio was positive for Acute lobar PE and left lower lobe aspiration pneumonia; lower extremity doppler showed DVT of gastrocnemius vein; treated with heparin and antibiotics(ceftriax one,Azithro,Flagyl); started apixaban(eliquis) bid. discharged on azithro and [...] HIV VL nondetctedHIV VL nondetetcted01/2024 HIV VL nondetcetd;eGFR=76;A ST/ALT wnl;11/2023 QB7=038; HIV VLnondetceted; no infections.01/2022 NQ3=312; HIV VL nondetceted; eGFR>60; ALt/AST wnl; syphilis neg; GC/chlamydia neg Fabiola Street MD [address] [place] [address], [place], [address], [address] MD [facility] 06/18/2024 18:19:56
[2024-09-08 10:36] LABS: Albumin Level 4.2 g/dL (3.5-5.0); Anion Gap 12 (12-20); Blood Urea Nitrogen 9 mg/dL (9-16); Calcium 10.2 mg/dL (8.4-10.2); Carbon Dioxide 28 mmol/L (22-29); Chloride 108 mmol/L (96-108); Estimated Glomerular Filt Rate > 60; Glucose Random 110 mg/dL (60-115); Phosphorus 3.6 mg/dL (2.7-4.5); Potassium 3.6 mmol/L (3.3-5.1); Sodium 144 mmol/L (135-145)
[2024-09-08 10:52] LABS: TSH reflex Free T4 0.68 uIU/mL (0.32-4.0); Vitamin D 25-OH Total 65.5 ng/mL (>30)
[2024-09-08 11:02] LABS: Cortisol Random 2.6 ug/dL
[2024-09-08 11:19] LABS: Creatinine, mg/dL 54.81
[2024-09-08 11:23] LABS: Creatinine, 24Hr Urine 1.2 G/Day (1.0-2.0); Total Volume 24 Hour Urine 2125 mL
[2024-09-09 12:17] LABS: DHEA Sulfate 65 mcg/dL (32-279); Follicle Stimulating Hormone 6.9 mIU/mL (1.4-12.8); Lutenizing Hormone 3.4 mIU/mL (1.6-15.2)
[2024-09-09 15:48] LABS: Calcium, Ionized 5.6 mg/dL (4.7-5.5)
[2024-09-09 18:12] LABS: Calcium, 24 Hr Urine 219 mg/24 h; Calcium/Creatinine Ratio 178 mg/g creat (30-210); Creatinine 24Hr Urine 1.23 g/24 h (0.50-2.15)
[2024-09-09 21:13] LABS: IgA 352 mg/dL (47-310); IgG 1346 mg/dL (600-1640); IgM 52 mg/dL (50-300)
[2024-09-11 11:53] LABS: Prot Elec - Albumin 4.2 g/dL (3.8-4.8); Prot Elec - Alpha1 0.3 g/dL (0.2-0.3); Prot Elec - Alpha2 0.6 g/dL (0.5-0.9); Prot Elec - Beta 1 0.6 g/dL (0.4-0.6); Prot Elec - Beta 2 0.4 g/dL (0.2-0.5); Prot Elec - Gamma 1.1 g/dL (0.8-1.7); Prot Elec - Total Protein 7.2 g/dL (6.1-8.1)
[2024-09-11 16:03] LABS: Collagen Type I C-Telopeptide 552 pg/mL (87-345)
[2024-09-11 22:29] LABS: Adrenocorticotropic Hormone 9 pg/mL (6-50)
[2024-09-12 16:49] LABS: Cortisol Free, 24 Hr Urine 35.1 mcg/24 h (4.0-50.0); Creatinine, 24 Hr Urine 1.24 g/24 h (0.50-2.15); Total Volume, 24 Hr Urine 2125 mL
[2024-09-13 14:59] LABS: Sex Hormone Binding Globulin 55 nmol/L (22-77); Testosterone-Albumin 4.4 g/dL (3.6-5.1); Testosterone-Bioavailable 46.5 ng/dL (110.0-575.0); Testosterone-Free 23.1 pg/mL (46.0-224.0); Testosterone-Total 282 ng/dL (250-1100)
[2024-09-14 22:04] LABS: Alkaline Phosphatase Bone 8.5 mcg/L (7.6-14.9)
[2024-09-17 13:57] LABS: Dexamethasone <20 ng/dL
== END 2024-09-08 09:40 | disposition home or self-care (01) ==
LOC: HO.LAB 09:39
PROVIDERS: PCP Student in an Organized Health Care Education/Training Program; Visit Provider Student in an Organized Health Care Education/Training Program
DX: M81.0 Age-related osteoporosis without current pathological fracture (principal); R29.890 Loss of height; E27.8 Other specified disorders of adrenal gland
CPT/HCPCS: 36415; 80048; 80299; 82024; 82040; 82306; 82330; 82340; 82523; 82530; 82533; 82627; 82784; 83001; 83002; 83970; 84075; 84100; 84165; 84270; 84300; 84402; 84403; 84443; 86334

== ENCOUNTER 2024-09-15 10:05 | Outpatient (REF) | payer OTHER, SELFPAY ==
--- OUTSIDE RECORDS SUMMARY | 2024-09-15 11:01 | XMS_ITS ---
Demographics Address [address] [facility] [facility] [address] [place] [address] Preferred Language en Marital Status Unknown Restoration Affiliation Unknown Race White Ethnic Group Not or Lati no Author Organization [facility] Address [address] [place] [address] Care Team Providers Care Scholastic Aptitude Test Grader Name Role Phone Terese Rivera Primary Care Provider Pepe Dangelo Unavailable [phone] REASON FOR VISIT Pt no show Encounters Encounter Location Date Provider Diagnosis [facility] [address] [place] [address] 12/14/2023 Pepe Stephenson PLAN OF TREATMENT Next Appt Details Provider Name:Pepe Stephenson , 10/09/2024 09:40:00 AM, [address], [address], [place], [address],
--- OUTSIDE RECORDS SUMMARY | 2024-09-15 11:01 | XMS_ITS | Data Portability ---
Author Organization [facility], [place] in - [facility] Address [address] [place] [id number] Care Team Providers Care Verifier Operator Name Role Phone HIM [facility] OTHER [facility] OTHER Assessment No assessment recorded. Plan [...] Not available Not available Not available 07/08/2024 [id number] RxNorm Not Available [facility] - production 4 [...] 56 mm[Hg] Not Available [facility] - production 4 16:50:48 Social History None recorded. Functional Status None recorded. Mental Status None recorded. Family History Nothing Reported. Medical History No medical history recorded. Past Encounters Encounter ID Performer Location Encounter Start Date Encounter Closed Date Diagnosis/Indication Diagnosis SNOMED-CT Code Diagnosis ICD10 Code Diagnosis Note [id number] ERLINDA HOLLIDAY MD [facility] - [facility] [address] [place] [phone] 03/06/2024 16:50:44 03/07/2024 17:38:50 Lethargy [id number] R53.83 Evaluation in the field was performed by my outreach worker colleague. As noted above, I provided real-time direction and supervisio n for this visit. The evaluation revealed a 58-year-ol d male with a history of asthma, hypertensi on, hepatitis C, seizures, Parkinson' s disease, dysphagia, and a PEG tube. We were asked to evaluate him given his complaints of headache, body aches, and sore throat for two days. Pain was not relieved with Tylenol, although the patient is listed as having an allergy to it. The patient denies nausea, vomiting, diarrhea, fever, chills, cough, and abdominal pain but does endorse feeling like he is going to pass out and being weak. Vital signs showed low blood pressure, a narrow pulse pressure, and an inappropri ately low heart rate (unless he is on a beta-block er, but the patient was unable to provide much informatio n, and this is the first visit we have had with him). He is afebrile. Per discussion with the outreach worker, the patient looked lethargic, walked with an unsteady gait, and had slurred speech. His change in mental status was confirmed by his neighbor, who often checks on him as he lives alone. The patient had trouble keeping focus on the current situation, showed poor affect, and was lethargic. Impression :Lethargy Plan:Given his presentati on, change in mental status, and the fact that he lives alone, it was not felt safe to keep him at home and treat him with IV fluids due to the lack of overnight observatio n. The patient was transferre d to [facility] for further evaluation and treatment. His PCP was informed of the transfer to the ED. Primary care, consider__ _ Dispositio n:[facility] Health Concerns Section Related Observation LastModified by Organization Jazzy ls LastModified Time None Recorded Concern Status LastModified by Organization Details LastModified Time None Recorded Advance Directives Directive None Recorded Payers Encounter Date Sequence Insurance Name Policy Number Policy Perry Covered Member ID Perry Member ID Guarantor Name 03/06/2024 1 [facility] - DOS ON OR AFTER 2022 - DUAL ELIGIBLE - [employer] AND [employer] (MEDICARE REPLACEMENT/ADV ANTAGE - HMO) Benjamin Juan David [id number] [facility] Juan David Notes Date Note Type Note [...] ................. ................. ................. ................. ................. ................. ..... Marketing Admin Note From Francisco Ley: Dispatched to above address for headache sore throat. On arrival patient met [facility] at the door. Initially patient denied calling for medical help or having any symptoms. [facility] confirmed patient name and address, after this [...] focus on current situation, poor affect, lethargic. [facility] contacted, spoke with Dr. Holliday, advised of patient complaints and exam findings. [facility] agreed further evaluation in the ER is necessary for this patient. Patient agreed to this. Patients neighbor who assists patient arrived to check on him. She reports this doesn't seem like his normal mentation but cannot be sure. 911 called. [facility] responded. Verbal report given to [facility]. [facility] outreach worker took over patient care. [facility] clear. E[facility]. ................. ................. ................. ................. ................. ................. ................. ................. ..... Disposition: Shahzad HOLLIDAY MD [address] [facility],[address], [place], [id number], [place] KEERTHI BLOCK 03/06/2024 18:02:19
--- OUTSIDE RECORDS SUMMARY | 2024-09-15 11:02 | XMS_ITS | Data Portability ---
Author Organization LYNN WHITE MD [facility], Main Office Address [address] [place] [address] Assessment No assessment recorded. Plan of Treatment Reminders Order Date Submit Date Provider Last Modified By Organization Details Last Modified Time Details Appointments RESEARCH FOLLOW UP 2024 11:00A Wilmer Levin MD Not available Not available Not available Lab None recorded . Referral None recorded . Procedures None recorded . Surgeries None recorded . Imaging electroc ardiogra m 2023 024 [email or web address] Main Office, [address] [place] [address], [address], 07/15/2024 15:47:38 Medication Orders fluconaz ole 10 mg/mL oral suspensi on [address] [facility] ([place] [place]Pharmacy #[id number], [address] [place], [address], 03/16/2024 22:34:10 Serostim 6 mg subcutan eous solution 2023 024 [email or web address] Not available 03/14/2024 15:37:41 fluconaz ole 10 mg/mL oral suspensi on [address] [facility] ([place] [place]Pharmacy #[id number], [address] [place], [address], 04/18/2024 10:19:05 Serostim 6 mg subcutan eous solution [address] [facility] ([place] [place]) Specialty [address] [place], [address], 04/18/2024 14:20:41 voricona zole 200 mg/5 mL (40 mg/mL) oral suspensi on [address] [facility] ([place] [place]Pharmacy #[id number], [address] [place], [address], 05/20/2024 11:43:08 Serostim 6 mg subcutan eous solution [address], [address], 05/20/2024 11:29:08 megestro l 625 mg/5 mL (125 mg/mL) oral suspensi on [address] [facility] ([place] [place]Pharmacy #[id number], [address] [place], [address], 05/20/2024 11:30:41 Patient TargetsNo targets recorded. Patient InstructionsNo instructions recorded. Reason for Referral None Reported. Results Created Date Observation Date Name Description Value Unit Range Abnormal Flag Note LastModifiedBy Organization Detail LastModifiedTime 04/18/20 24 04/18/2024 MISCE LLANE OUS CULTU RE performing lab Perfor [facility] [address] [place] [address] Medic al Dire jj wu MD Not Available [facility] [address] [place] [address], [address], 04/28/2024 10:31:16 04/18/20 24 04/21/2024 MISCE LLANE OUS CULTU RE miscellaneou s culture CANDID A GLABRA TA Not Available [facility] [address] [place] [address], [address], 04/28/2024 10:31:16 04/18/20 24 04/18/2024 FUNGU S CULTU RE,OT HER performing lab Perfor [facility] [place] [address] [place] [address] Medic al Direc jj wu MD Not Available [facility] [address] [place], [address], 04/28/2024 10:31:19 04/18/20 24 04/22/2024 FUNGU S CULTU RE,OT HER fungus culture,othe r CANDID A GLABRA TA Not Available [facility] [address] [place], [address], 04/28/2024 10:31:19 04/08/20 24 11/12/2023 elect rocar diogr am No observ ation record ed. [email or web address] Not Available 2023 15:34:46 06/18/20 24 06/04/2024 US, abdom en, compl ete No observ ation record ed. [facility], [place], [address], 06/18/2024 11:12:25 07/15/20 24 07/15/2024 elect rocar diogr am No observ ation record ed. [email or web address] Main Office [address] [place], [address], 07/15/2024 17:12:05 07/17/20 elect rocar diogr am No observ ation record ed. [email or web address] Main Office [address] [place], [address], 07/17/2024 14:15:04 Result Notes None recorded. Problems Name Problem SNOMED Code Status Onset Date Resolution Date Notes Provider Name and Address Organization Details Recorded Time Asthma 000010824 Active 2006 Asthma; snomeddesc ription: Asthma; Report Immunity to Registry: Yes; Asthma; Report Immunity to Registry: Yes; ReasonDate : 10/13/2019 ; ; Start Date : 10/13/2019 Asthma; snomeddesc ription: Asthma; Report Immunity to Registry: Yes; Not Available [facility] 4 06:58:53 Male hypogonad ism 97339060 Active 2012 Male hypogonadi sm; snomeddesc ription: Male hypogonadi sm; Report Immunity to Registry: Yes; Not Available [facility] 4 06:58:53 Diarrhea 52061664 Active 2006 Diarrhea; snomeddesc ription: Diarrhea; Report Immunity to Registry: Yes; Diarrhea, unspecifie d; snomeddesc ription: Diarrhea; Report Immunity to Registry: Yes; Not Available [facility] 4 06:58:53 Substance abuse 57925667 Active 2006 Substance abuse; snomeddesc ription: Substance abuse; Report Immunity to Registry: Yes; Notes: opiate/suad jolene/benzo ; Not Available [facility] 4 06:58:53 Human immunodef iciency virus infection 22138971 Active 1991 Human immunodefi ciency virus [HIV] disease; snomeddesc ription: Human immunodefi ciency virus infection; Report Immunity to Registry: Yes; Human immunodefi ciency virus infection; snomeddesc ription: Human immunodefi ciency virus infection; Report Immunity to Registry: Yes; Not Available [facility] 4 06:58:53 Steatosis of liver 418337669 Active 2006 Steatosis of liver; snomeddesc ription: Steatosis of liver; Report Immunity to Registry: Yes; Notes: u/s 2021; Fatty (change of) liver, not elsewhere classified ; snomeddesc ription: Steatosis of liver; Report Immunity to Registry: Yes; Notes: u/s 2021; Not Available [facility] 4 06:58:53 Herpesvir us infection 17106668 Active 2009 Herpesvira l infection, unspecifie d; snomeddesc ription: Herpes simplex; Report Immunity to Registry: Yes; Notes: HSV 1 pos serology; HSV 2 neg serology; Not Available [facility] 4 06:58:53 Fibromyos itis 05111457 Active 2006 Myalgia and myositis, unspecifie d; snomeddesc ription: Fibromyalg ia; Report Immunity to Registry: Yes; Notes: Chronic pain multiple/c hronic back pain; Not Available [facility] 4 06:58:53 Herpes simplex 46680353 Active 2009 Herpes simplex; snomeddesc ription: Herpes simplex; Report Immunity to Registry: Yes; Notes: HSV 1 pos serology; HSV 2 neg serology; Not Available [facility] 4 06:58:54 Kidney stone 54845465 Active 2001 Calculus of kidney; snomeddesc ription: Kidney stone; Report Immunity to Registry: Yes; Kidney stone; snomeddesc ription: Kidney stone; Report Immunity to Registry: Yes; Not Available [facility] 4 06:58:54 History of calculus of kidney 448741577 Active 2001 History of calculus of kidney; snomeddesc ription: History of calculus of kidney; Report Immunity to Registry: Yes; Not Available [facility] 4 06:58:54 Type B viral hepatitis 14770682 Active 2006 Type B viral hepatitis; snomeddesc ription: Type B viral hepatitis; Report Immunity to Registry: Yes; Notes: core ab pos; s ag neg; s ab neg HBV vL nondetecte d 2016; 2017; Not Available [facility] 4 06:58:54 Hyperplas ia of prostate 918070926 Active 2014 Hyperplasi a of prostate, unspecifie d, without urinary obstructio n and other lower urinary symptoms (LUTS); snomeddesc ription: Hyperplasi a of prostate; Report Immunity to Registry: Yes; Hyperplas ia of prostate; snomeddesc ription: Hyperplasi a of prostate; Report Immunity to Registry: Yes; Not Available [facility] 4 06:58:54 Anxiety 40393374 Active 1996 Anxiety; snomeddesc ription: Anxiety; Report Immunity to Registry: Yes; Not Available [facility] 4 06:58:54 Testicula r hypofunct ion 668436685 Active 2012 Other testicular hypofuncti on; snomeddesc ription: Male hypogonadi sm; Report Immunity to Registry: Yes; Not Available [facility] 4 06:58:54 Seasonal allergic rhinitis 291117167 Active 2012 Other seasonal allergic rhinitis; snomeddesc ription: Seasonal allergy; Report Immunity to Registry: Yes; Notes: hx nasal congestion ; Not Available [facility] 4 06:58:54 Onychomyc osis due to dermatoph yte 440072128 Active 2017 Tinea unguium; snomeddesc ription: Onychomyco sis; Report Immunity to Registry: Yes; Notes: feet digits; Not Available [facility] 4 06:58:55 Sleep apnea 87653843 Active 1999 Sleep apnea; snomeddesc ription: Sleep apnea; Report Immunity to Registry: Yes; Unspecifi ed sleep apnea; snomeddesc ription: Sleep apnea; Report Immunity to Registry: Yes; Not Available [facility] 4 06:58:55 Psychoact marj substance abuse 88211889 Active 2006 Other psychoacti ve substance abuse, uncomplica lucho; snomeddesc ription: Substance abuse; Report Immunity to Registry: Yes; Notes: opiate/suad jolene/benzo ; Not Available [facility] 4 06:58:55 Viral hepatitis B without hepatic coma 799955877 Active 2006 Unspecifie d viral hepatitis B without hepatic coma; snomeddesc ription: Type B viral hepatitis; Report Immunity to Registry: Yes; Notes: core ab pos; s ag neg; s ab neg HBV vL nondetecte d 2016; 2017; Not Available [facility] 4 06:58:55 Blood chemistry outside reference range 621437401 Active 2012 Other specified abnormal findings of blood chemistry; snomeddesc ription: Decreased testostero ne level; Report Immunity to Registry: Yes; Notes: hypogoandi sm; Not Available [facility] 4 06:58:55 Arthritis 0574141 Active 1998 Arthritis; snomeddesc ription: Arthritis; Report Immunity to Registry: Yes; Notes: Osteoatrth ris multiple; Not Available [facility] 4 06:58:55 History of urinary stone 399424168 Active 2001 Personal history of urinary calculi; snomeddesc ription: History of calculus of kidney; Report Immunity to Registry: Yes; Not Available [facility] 4 06:58:56 Fibromyal mika 342392425 Active 2006 Fibromyalg ia; snomeddesc ription: Fibromyalg ia; Report Immunity to Registry: Yes; Notes: Chronic pain multiple/c hronic back pain; Not Available [facility] 4 06:58:56 Lyme disease 89269140 Active 2017 Lyme disease; Report Immunity to Registry: Yes; Notes: tx cefuroxime x14 d (hx all Doxy); Not Available [facility] 4 06:58:56 Headache 10755540 Active 2008 Headache; snomeddesc ription: Headache; Report Immunity to Registry: Yes; Notes: migraine; Headache; snomeddesc ription: Headache; Report Immunity to Registry: Yes; Notes: migraine; Not Available [facility] 4 06:58:56 Hypertens marj disorder 62382530 Active 2017 Hypertensi ve disorder; snomeddesc ription: Hypertensi ve disorder; Report Immunity to Registry: Yes; Not Available [facility] 4 06:58:56 Arthropat hy 894930513 Active 1998 Arthropath y, unspecifie d, site unspecifie d; snomeddesc ription: Arthritis; Report Immunity to Registry: Yes; Notes: Osteoatrth ris multiple; Not Available [facility] 4 06:58:56 Essential hypertens ion 96657637 Active 2017 Essential (primary) hypertensi on; snomeddesc ription: Hypertensi ve disorder; Report Immunity to Registry: Yes; Not Available [facility] 4 06:58:57 Testoster one level below reference range 992640649 Active 2012 Decreased testostero ne level; snomeddesc ription: Decreased testostero ne level; Report Immunity to Registry: Yes; Notes: hypogoandi sm; Not Available [facility] 4 06:58:57 Insomnia 487203213 Active 1996 Insomnia; Report Immunity to Registry: Yes; Not Available [facility] 4 06:58:57 Anxiety state 799233398 Active 1996 Anxiety state, unspecifie d; snomeddesc ription: Anxiety; Report Immunity to Registry: Yes; Not Available [facility] 4 06:58:57 Onychomyc osis 648119897 Active 2017 Onychomyco sis; snomeddesc ription: Onychomyco sis; Report Immunity to Registry: Yes; Notes: feet digits; Not Available [facility] 4 06:58:57 Chronic hepatitis C 050299183 Active 2006 Chronic hepatitis C without mention [...] 2015;2017; 12/2021 F2 ; Not Available [facility] 4 06:58:57 Depressiv e disorder 14817544 Active 1996 Depressive disorder, not elsewhere classified ; snomeddesc ription: Depressive disorder; Report Immunity to Registry: Yes; Depressiv e disorder; snomeddesc ription: Depressive disorder; Report Immunity to Registry: Yes; Not Available [facility] 4 06:58:58 Seasonal allergy 602008639 Active 2012 Seasonal allergy; snomeddesc ription: Seasonal allergy; Report Immunity to Registry: Yes; Notes: hx nasal congestion ; Not Available [facility] 4 06:58:58 Loss of appetite 05833336 Active 2012 Anorexia; snomeddesc ription: Loss of appetite; Report Immunity to Registry: Yes; Loss of appetite; snomeddesc ription: Loss of appetite; Report Immunity to Registry: Yes; Not Available [facility] 4 06:58:58 Seizure 03182929 Active 2000 Seizure; snomeddesc ription: Seizure; Report [...] Immunity to Registry: Yes; Not Available [facility] 4 06:58:58 Problem Notes None recorded. Procedures Surgical History None recorded. Imaging Results Imaging Date Name Status LastModified by Organization Details LastModified Time 11/12/2023 electrocardiogram completed [email or web address] Informa tion not available 04/08/2024 15:34:46 06/04/2024 US, abdomen, complete completed [email or web address] [place], [address], 06/18/2024 11:12:25 07/15/2024 electrocardiogram completed [email or web address] Main Of [address], [address], 07/15/2024 17:12:05 07/17/2024 electrocardiogram completed [email or web address] Main Of [address], [address], 07/17/2024 14:15:04 Procedure Notes None recorded. Medical Equipment None Reported. Allergies Allergen ID Allergen Name Allergen Category Reaction Reaction Severity Criticality Documentation Date Start Date Code Code System Note Provider Name and Address Organization Details Recorded Time 714 Reglan medicatio n Not available Not available Not available 10/31/20232012 9230 RxNorm Comme nt: adver se_ev ent_t ype: 71475 8002; ; Not Available [facility] 4 06:50:47 715 Motrin medicatio n Not available Not available Not available 10/31/2023201248 8 RxNorm Comme nt: adver se_ev ent_t ype: 04345 8002; ; Not Available [facility] 4 06:50:47 716 doxycycli ne Not available Not available Not available Not available 10/31/20232017 3640 RxNorm Comme nt: telma se_ev ent_t ype: 62715 8002; ; Not Available [facility] 4 06:50:47 Medications Name Sig Start [...] 09/25 completed VACCINE_ IND: no; SU_FULL_ NAME: Cheyrl Taylorsusan scales; Not Available Not Available Not Available Liquid Nutrition oral 0 Quantity : 44637; Duration : 30; 0 refill(s ) 09/30 [...] Not Available Not Available Not Available Flulaval 8882-1061 45 mcg (15 mcg x 3)/0.5 mL [...] Not Available Not Available Not Available Afluria 4858-4805 45 mcg (15 mcg x 3)/0.5 mL [...] Pneumoco ccal conjugat e PCV20, polysacc haride [id number] conjugat e, adjuvant , PF; Not Available Not Available Not Available Vitals Date Recorded Body height Heart rate Respiratory rate Body temperature Body mass index (BMI) Body weight Systolic blood pressure Diastolic blood pressure Provider Name and Address Organization Details Last Updated DateTime 4 162.56 cm 62 /min 20 /min 98.2 [degF] 20.1 kg/m2 74273.3 1 g 106 mm[Hg] 77 mm[Hg] Jerome PENDLETON 4 11:34:39 Date Recorded Body height Heart rate Body temperature Respiratory rate Body mass index (BMI) Body weight Systolic blood pressure Diastolic blood pressure Provider Name and Address Organization Details Last Updated DateTime 4 162.56 cm 82 /min 97.7 [degF] 18 /min 21.3 kg/m2 04346.4 5 g 123 mm[Hg] 85 mm[Hg] Jerome LEVIN MD [facility] 4 14:10:17 Date Recorded Body height Heart rate Respiratory rate Body temperature Body mass index (BMI) Body weight Systolic blood pressure Diastolic blood pressure Provider Name and Address Organization Details Last Updated DateTime 4 162.56 cm 109 /min 20 /min 97.2 [degF] 21.1 kg/m2 81713.8 6 g 111 mm[Hg] 90 mm[Hg] Jerome LEVIN MD [facility] 4 12:07:11 Date Recorded Body height Heart rate Respiratory rate Body temperature Body mass index (BMI) Body weight Systolic blood pressure Diastolic blood pressure Provider Name and Address Organization Details Last Updated DateTime 4 162.56 cm 89 /min 16 /min 98 [degF] 20.6 kg/m2 49969.0 8 g 123 mm[Hg] 90 mm[Hg] eJrome LEVIN MD [facility] 4 14:28:38 Date Recorded Body height Provider Name an d Address Organization Details Last Updated DateTime 07/15/2024 162.56 cm Jerome LEVIN MD [facility] 07/15/2024 15:22:29 Date Recorded Body temperature Body mass index (BMI) Body weight Respiratory rate Heart rate Systolic blood pressure Diastolic blood pressure Provider Name and Address Organization Details Last Updated DateTime 4 98.7 [degF] 20.6 kg/m2 67744.0 8 g 20 /min 87 /min 120 mm[Hg] 80 mm[Hg] Cheryl Levin MD [address] [place] [address], [phone], LYNN LEVIN MD [facility] 4 15:46:02 Social History None recorded. Functional Status None recorded. Mental Status None recorded. Family History Nothing Reported Notes:High cholesterol, Resp onse Property: Yes; , Cancer, other unspecified, Response Property: Yes; , Diabetes, Response Property: Yes; Medical History No medical history recorded. Immunizations Vaccine Type Date Status Note Provider Nam e and Address Organization Details Recorded Time Meningococcal MCV4O 9 completed Not Available [facility] 10/31/2023 06:54:49 zoster live 9 completed Not Available [facility] 10/31/2023 06:54:50 Influenza, split virus, quadrivalent, preservative 9 completed Not Available [facility] 10/31/2023 06:54:50 Influenza, split virus, quadrivalent, preservative 8 completed Not Available [facility] 10/31/2023 06:54:50 Influenza, split virus, quadrivalent, preservative 0 completed Not Available [facility] 10/31/2023 06:54:50 Past Encounters Encounter ID Performer Location Encounter Start Date Encounter Closed Date Diagnosis/Indication Diagnosis SNOMED-CT Code Diagnosis ICD10 Code Diagnosis Note [id number] Krista Castellano Main Office [address] [place] [address] 05/25/2023 09:48:40 06/27/2023 09:16:16 Human immunodeficiency virus infection 37173759 B20 HIV. Continue Biktarvy 1 tab po qd. wants to keep same regimen. pt aware of TAF free options and injectable s.complian ce reviewed to prevent viral resistance , keep viral load suppressio n and prevent viral transmissi on. clinical trials reviuewed. monoclonal AB reviewed. labs ordered.fl u vaccine prescribed . U=U reviewed. safe sex. condom use reviewed to prevent STi including HCV pt aware of PreP availabili ty: Apretude IM/Descovy /Tivicay.. safe sex. plan of care reviewed [id number] Cheryl Levin MD Main Office [address] [place] [address] 08/24/2023 09:33:00 08/24/2023 10:46:09 Human immunodeficiency virus infection 87663438 B20 HIV. Continue Biktarvy 1 tab po qd. wants to keep same regimen. pt aware of TAF free options and injectable s.. pt has trial consent; interested in studies.la bs ordered.co mpliance reviewed to prevent viral resistance , keep viral load suppressio n and prevent viral transmissi onU=U reviewed. safe sex. condom use reviewed to prevent STi including HCVpt aware of PreP availabili ty: Apretude IM/Descovy /Tivicay.s afe sex.labs Septemberlan of care reviewed [id number] Cheryl Levin MD Main Office [address] [place] [address] 11/12/2023 11:34:42 11/16/2023 15:00:47 Human immunodeficiency virus infection 77328730 B20 HIV.Contin ue Biktarvy 1 tab po qd.U=Upt aware of PreP availabili ty.condom use.plan of care reviewed Adult [facility] th examination 149401301 Z00.00 [id number] Cheryl Levin MD Main Office [address] [place] [address], [place] [address] 11/21/2023 10:59:43 11/23/2023 14:55:21 [id number] Cheryl Levin MD Main Office [address] [place] [address] 01/14/2024 09:27:39 01/16/2024 13:51:41 [id number] Cheryl Levin MD Main Office [address] [place] [address] 01/16/2024 10:24:39 01/16/2024 11:50:10 Human immunodeficiency virus infection 69752464 B20 HIV.Contin ue Biktarvy 1 tab po qd.U=Upt aware of PreP availabili ty.condom use.labs todayplan of care reviewed Candidiasis of mouth 797 83600 B37.0 nystatin 5cc po qid x 14 days. swish and spit.call with any side effects.ba cterial/fu ngal swab obtained. 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 [id number] Cheryl Levin MD Main Office [address] [place] [address] 02/14/2024 12:00:04 02/14/2024 12:24:19 Human immunodeficiency virus infection 73025774 B20 HIV.Contin ue Biktarvy 1 tab po qd.U=Upt aware of PreP availabili ty.DoxyPEP reviewedco ndom use.labs todayplan of care reviewed Methicilli n resistant Staphylococcus aureus infection 309341652 A49.02 swab culture 01/2024 Candidiasi s of the esophagus 14803692 B37.81 sandy glabratafl uconazole 100mg po qd x 14 dayscall with any side effects. Weight loss 57634585 R63 .4 contributi ng factor sandy, MRSA, HIV among othermight benefit from Serostim.w ill review with himG tube [id number] Cheryl Levin MD Main Office [address] [place] [address] 02/21/2024 11:08:05 02/21/2024 12:09:56 Human immunodeficiency virus infection 80415629 B20 HIV.Contin ue Biktarvy 1 tab po qd.complia nce reviewedU= Upt aware of PreP availabili ty.DoxyPEP reviewedco ndom use.labs todayplan of care reviewed Candidiasi s of the esophagus B37.81 sandy glabratato complete fluconazol e 100mg po bid x 14 days: (10mg/ml) 10ml by G tube bidcall with any side effects. Methicilli n resistant Staphylococcus aureus infection 194511478 A49.02 swab culture urr ently on Bactrim oral suspension (200mg- 40mg/5ml) since 02/15-20ml q 12 hrs G tube x 10 days Cachexia a ssociated with AIDS 455343540 B20 R64 weight loss. frail. progressin g.contribu ting factor sandy, MRSA, HIV among other. G tubeSerost im 6mg sq qd will be prescribed with the goal of helping w weight gain, increase muscle mass gain, and increase enduranceh e has visiting nurse who could assist with daily injections . [id number] Cheryl Levin MD Main Office [address] [place] [address] 02/25/2024 10:24:53 02/25/2024 11:09:27 Human immunodeficiency virus infection 25261851 B20 HIV.Contin ue Biktarvy 1 tab po qd.complia nce reviewedU= Ucondom use.labs todayplan of care reviewed Candidiasi s of the esophagus B37.81 sandy glabratawi ll continue fluconazol e 200 mg po qd x 14 days: (10mg/ml) 10ml by G tube QD;will on next appointmen t for further tx va suppressio n tx.call with any side effects. Cachexia a ssociated with AIDS 136516922 B20 R64 weight loss. frail. progressin g.approved Serostim 6mg sq qd; awaiting delivery to the office. will be prescribed with the goal of helping w weight gain, increase muscle mass gain, and increase enduranceh e has visiting nurse who could assist with daily injections .ensure tidmegace 625 mg qd. Methicilli n resistant Staphylococcus aureus infection 850933499 A49.02 swab culture 01/2024will complete 10 days of Bactrim oral suspension (200mg- 40mg/5ml) since 02/15-20ml q 12 hrs G tube on 02/27/24 [id number] Cheryl Levin MD Main Office [address] [place] [address] 03/14/2024 10:24:00 03/14/2024 10:29:25 Cachexia associated with AIDS 085024208 R64 B20 gained 2 pounds. probably improved sandy esophagiti s 2nd to inhaled steroids.S Tart Serostim 6mg s/c qd abdomen. first dose administer ed today. Tolerated well; goalis to increase weight, endurance and muscle massHe will have SECURITIES ANALYST and nurse help with daily injections .potential side effects reviewed.t o call with any concernshe will roller picker Megace today, and start it as well(G tube) qd to increase apetitte Human immunodeficiency virus infection 76819287 B20 HIV.Contin ue Biktarvy 1 tab po qd.complia nce reviewed Candidiasi s of the esophagus 60858256 B37.81 sandy glabratawi ll continue 2 more weeks of fluconazol e 200 mg po qd x 14 days: (10mg/ml) 10ml by G tube QD;might benefit from qw suppressio n tx.call with any side effects. [id number] Cheryl Levin MD Main Office [address] [place] [address] 04/18/2024 09:52:00 04/18/2024 11:19:01 Cachexia associated with AIDS 768333929 R64 B20 124 lbs. gained weightcont inue Serostim 6mg s/c qd abdomen. goalis to increase weight, endurance and muscle masscontin ue Megace G tube qdCNA and nurse helping with compliance and tx.potenti al side effects reviewed.t o call with any concerns Human immunodeficiency virus infection 76991291 B20 HIV.Contin ue Biktarvy 1 tab po qd.padmini hoffman reviewedla bs today Candidiasi s of the esophagus 66585848 B37.81 sandy glabratawi ll continue fluconazol e 200 (10ml) mg G tube qw for suppressio n tx.call with any side effects. Aspiration pneumonia 422 376621 J69.0 get discharge summaryon antibiotic ;eat standing or sitting; and not sleeping/[place] [id number] Cheryl Levin MD Main Office [address] [place] [address] 05/20/2024 10:17:53 05/20/2024 12:44:49 Cachexia associated with AIDS 483208828 R64 B20 continue Serostim 6mg s/c qd abdomen. goal is to increase weight, endurance and muscle masscontin ue Megace G tube qd 5cc qdCNA and nurse helping with compliance and tx.potenti al side effects reviewed.t o call with any concerns Human immunodeficiency virus infection 50439825 B20 HIV.Contin ue Biktarvy 1 tab po qd.padmini tala bs today Candidiasi s of the esophagus 70378291 B37.81 sandy glabrataho ld fluconazol e for nowSTART 1 tab po bid x 21 says for esophageal sandy glabrata.c all with any side effects. [id number] Cheryl Levin MD Main Office [address] [place] [address] 06/18/2024 10:10:09 06/18/2024 11:12:33 Cachexia associated with AIDS 984041011 R64 B20 continue Serostim 6mg s/c qd abdomen. goal is to increase weight, endurance and muscle massCNA and nurse helping with compliance and tx.megace on holdpotent ial side effects reviewed.t o call with any concerns Human immunodeficiency virus infection 88989946 B20 HIV.Contin ue Biktarvy 1 tab po qd.padmini hoffman reviewedla bs today Inflammato ry disease of liver 922096944 K75.9 Suspect 2nd to concomitan t medication s. ongoingdo not re-start fluconazol e nor megacenega tive infectious and non-infect ious workupto call or ER if jaundice, abd pain, n/v/d marce huertas History of calculus of kidney 792193368 Z87.442 u/s 05/[address] scan 02/2024hydr ation Aspiration pneumonia 422 765915 J69.0 s/p aspiration on CT AngioNPO per instructio n given to him in hospital; nutrition by G tubes/p (ceftriaxo ne,Azithro ,Flagyl while in Hospital;d ischarged on azithro and cefpodoxim e x 3 days which he completed. leg elevationa void sedating meds as much as possible Deep venou s thrombosis of lower extremity 030026792 I82.409 left lower extremity doppler showed DVT of gastrocnem ius vein;on tx w w Eliquis bid . Pulmonary embolism [address] Angio was positive for Acute lobar PEs/p heparin; ongoing Eliquis bidmed list reviewed.n o drug use for years. not on maintenanc e tx.denies current ETOH use. [id number] Cheryl Levin MD Main Office [address] [place] [address] 07/15/2024 15:10:10 07/15/2024 15:45:30 Cachexia associated with AIDS 813027942 R64 B20 continue Serostim 6mg s/c qd abdomen. goal is to increase weight, endurance and muscle masspotent ial side effects reviewed.t o call with any concerns Human immunodeficiency virus infection 20040111 B20 HIV.Contin ue Biktarvy 1 tab po qd.complia nce reviewedla bs Candidiasi s of the esophagus 47411877 B37.81 on clotrimazo le. swish and spit qd Medication monitoring 39 8061866 Z51.81 Health Concerns Section Related Observation LastModified by Organization Detai ls LastModified Time None Recorded Concern Status LastModified by Organization Details LastModified Time None Recorded Advance Directives Directive None Recorded Payers Encounter Date Sequence Insurance Name Policy Number Policy Perry Covered Member ID Perry Member ID Guarantor Name 03/14/2024 1 [facility] - DOS ON OR AFTER 2022 - MEDICARE [place]/ADV ANTAGE - PPO) [facility] Fall [id number] [facility] 04/18/2024 1 [employer] - DOS ON OR AFTER 2022 - [place]/ADV ANTAGE - PPO) [facility] [id number] [facility] 05/20/2024 1 [employer] - DOS ON OR AFTER 2022 - [place]V ANTAGE - PPO) [facility] [id number] [facility] 06/18/2024 1 [facility] - DOS ON OR AFTER 2022 - [place]/ADV ANTAGE - PPO) [facility] Fall [id number] [facility] 07/15/2024 1 [facility] DOS ON OR AFTER 2022 - [place]/ADV ANTAGE - PPO) [facility] [id number] [facility] Notes Date Note Type Note Provider Name [...] VL nondetetcted01/2024 HIV VL nondetcetd;eGFR=76;AST /ALT wnl;11/2023 TN0=841; HIV VLnondetceted; no infections.01/2022 MD2=258; HIV VL nondetceted; eGFR>60; ALt/AST wnl; syphilis neg; GC/chlamydia neg Cheryl Levin MD [address] [place] [address], [phone], LYNN LEVIN MD [facility] 03/16/2024 22:34:36 04/18/2024 text/html HIVOn Biktarvy 1 [...] ETOh use.reports was Hospitalized 3 days at [facility] this week with pneumonia 04/15- 04/17. discharge summary not available at time of visit. reports use of antibiotic; he says he was drinking shake in his bed and choked on it. dsicharge summery to be obtained. feels well. no SOB. no cough03/2024 HIV VL nondetctedHIV VL nondetetcted01/2024 HIV VL nondetcetd;eGFR=76;AST /ALT wnl;11/2023 JL6=870; HIV VLnondetceted; no infections.01/2022 EV5=933; HIV VL nondetceted; eGFR>60; ALt/AST wnl; syphilis neg; GC/chlamydia neg Cheryl Levin MD [address] [place] [address], [phone], LYNN LEVIN MD [facility] 04/18/2024 14:20:48 05/20/2024 text/html HIVOn Biktarvy 1 [...] VL nondetetcted01/2024 HIV VL nondetcetd;eGFR=76;AST /ALT wnl;11/2023 DU2=442; HIV VLnondetceted; no infections.01/2022 JJ1=578; HIV VL nondetceted; eGFR>60; ALt/AST wnl; syphilis neg; GC/chlamydia neg Cheryl Levin MD [address] [place] [address], [phone], LYNN - CHERYL LEVIN MD [facility] 05/20/2024 12:17:47 06/18/2024 text/html HIVOn Biktarvy 1 tab po qd.reports daily compliance. denies missing dose.resolved thrush. hx recurrence. fluconazole and voriconazole on hold. Pt reports was hospitalized at [facility] 06/10/24-06/13/24 ( got to ER on [...] VL nondetetcted01/2024 HIV VL nondetcetd;eGFR=76;AST /ALT wnl;11/2023 KU3=639; HIV VLnondetceted; no infections.01/2022 FJ3=482; HIV VL nondetceted; eGFR>60; ALt/AST wnl; syphilis neg; GC/chlamydia neg Cheryl Levin MD [address] [place] [address], [phone], LYNN LEVIN MD [facility] 06/18/2024 18:19:56 07/15/2024 text/html HIVOn Biktarvy 1 tab po qd.reports daily compliance. denies missing dose.thrush on/off: recurrence. on clotrimazole daily .stable weight 120lbshe says he is eating more and apetitte has improvedfeels strongergetting serostim dailyno hospitalizations since he was last seenmed list reviewed.On Eliquis and enoxaparin. recent PE/DVT.VL nondetected03/2024 HIV VL nondetctedHIV VL nondetetcted01/2024 HIV VL nondetcetd;eGFR=76;AST /ALT wnl;11/2023 QL3=513; HIV VLnondetceted; no infections. Cheryl Levin MD [address] [place] [address], [phone], LYNN LEVIN MD [facility] 07/15/2024 15:47:48
--- OUTSIDE RECORDS SUMMARY | 2024-09-15 11:02 | XMS_ITS | Patient Health Record ---
Demographics Address [address] [place] [address] Preferred Language en Marital Status Unknown Confucianism Affiliation Unknown Race White Ethnic Group Not or Lati no Author Organization [facility] Address [address] [place] [address] Care Team Providers Care Director Information Security Name Role Phone Terese Rivera Primary Care Provider Pepe Dangelo Unavailable [phone] ALLERGIES Allergen (clinical drug ingredient) Drug/Non Drug [...] stool (578.1) Active confirmed Blood in stool (256134815) Problem Constipation (564.00) Active confirmed Constipation (03900335) Problem GERD (gastroesophage al reflux disease) (530.81) Active confirmed Gastroesophagea l reflux disease (321165599) Problem Dysphagia (R13.10) Active confirmed Dysphagia (32934605) Problem Anorexia (R63.0) Active confirmed Anorexia (12839546) Problem Unspecified protein-calorie malnutrition (E46) Active confirmed Protein calorie malnutrition (510119082) Encounters Encounter Location Date Provider Diagnosis [facility] [address] [place] [address] 12/14/2023 Pepe Stephenson [facility] [address] [place] [address] 12/14/2023 Pepe Stephenson PLAN OF TREATMENT Future Test Test Name Order Date UPPER GI ENDOSCOPY 02/26/2013 COLONOSCOPY 02/26/2013 Next Appt Details Provider Name:Pepe Stephenson , 10/09/2024 09:40:00 AM, [address], [address], [place], [address], Insurance Providers Payer Name Payer Address Payer Phone Subscriber Number Group Number Insured Name Patient Relationship to Insured Coverage Start Date Coverage End Date [facility] [address] Attn Claims HOSEA Solorzano [id number] [facility] Self - patient is the insured [facility] [address] [place] [address] [id number] [facility] Self - patient is the insured MEDICAL (GENERAL) HISTORY Medical History History ICD Code seizures kidney stones Denies AL,DM,CVA,renal disease HIV infection since age 23-[address] e[address]-reports neg. hepatitis serologies GERD Mild asthma-Albuterol prn Anxiety Fibromyalgia Surgical History Surgery Date(Month/Year) hemorrhoidectomy 2004 Eye surgery as a child
--- OUTSIDE RECORDS SUMMARY | 2024-09-15 11:02 | XMS_ITS ---
Demographics Address [address] [place] [address] Preferred Language en Marital Status Unknown Cheondoism Affiliation Unknown Race White Ethnic Group Not or Lati no Author Organization [facility] Address [address] [place] [address] Care Team Providers Care Senior Research Analyst Name Role Phone Terese Rivera Primary Care Provider Pepe Dangelo [phone] Encounters Encounter Location Date Provider Diagnosis [facility] [address] [place] [address] 08/21/2023 Pepe Stephenson PLAN OF TREATMENT Next Appt Details Provider Name:Pepe Stephenson , 10/09/2024 09:40:00 AM, [address], [address], [place], [address],
--- OUTSIDE RECORDS SUMMARY | 2024-09-15 11:02 | XMS_ITS ---
Demographics Address [address] [place] [address] Preferred Language en Marital Status Unknown Yarsani Affiliation Unknown Race White Ethnic Group Not or Lati no Author Organization [facility] Address [address] [place] [address] Care Team Providers Care Detailer [employer] Name Role Phone Terese Rivera Primary Care Provider Pepe Dangelo Unavailable [phone] REASON FOR VISIT Patient presents today for [...] ve Encounters Encounter Location Date Provider Diagnosis [facility] [address] [place] [address] 12/14/2023 Pepe Stephenson PLAN OF TREATMENT Next Appt Details Provider Name:Pepe Stephenson , 10/09/2024 09:40:00 AM, [address], [address], [place], [address],
--- OUTSIDE RECORDS SUMMARY | 2024-09-15 11:03 | XMS_ITS | Continuity of Care Document ---
Author Organization LYNN WHITE MD [facility], Main Office Address [address] [place] [address] Assessment No assessment recorded. Plan of Treatment Reminders Order Date Submit Date Provider Last Modified By Organization Details Last Modified Time Details Appointments RESEARCH FOLLOW UP 2024 11:00A M Cheryl Street MD Not available Not available Not [...] compl ete No observ ation record ed. [email or web address] [place], [address], 06/18/2024 11:12:25 07/15/20 24 07/15/2024 elect rocar diogr am No observ ation record ed. [email or web address] Main Office [address] [place], [address], 07/15/2024 17:12:05 07/17/20 elect rocar diogr am No observ ation record ed. [email or web address] Main Office [address] [place] [address], [phone], 07/17/2024 14:15:04 Result Notes None recorded. Problems Name Problem SNOMED Code Status Onset Date Resolution Date Notes Provider Name and Address Organization Details Recorded Time Asthma 371677875 Active 2006 Asthma; snomeddesc ription: Asthma; Report Immunity to Registry: Yes; Asthma; Report Immunity to Registry: Yes; ReasonDate : 10/13/2019 ; ; Start Date : 10/13/2019 Asthma; snomeddesc ription: Asthma; Report Immunity to Registry: Yes; Not Available [facility] 4 06:58:53 Male hypogonad ism 57933680 Active 2012 Male hypogonadi sm; snomeddesc ription: Male hypogonadi sm; Report Immunity to Registry: Yes; Not Available [facility] 4 06:58:53 Diarrhea 32587972 Active 2006 Diarrhea; snomeddesc ription: Diarrhea; Report Immunity to Registry: Yes; Diarrhea, unspecifie d; snomeddesc ription: Diarrhea; Report Immunity to Registry: Yes; Not Available [facility] 4 06:58:53 Substance abuse 05627470 Active 2006 Substance abuse; snomeddesc ription: Substance abuse; Report Immunity to Registry: Yes; Notes: opiate/suad jolene/benzo ; Not Available [facility] 4 06:58:53 Human immunodef iciency virus infection 68051132 Active 1991 Human immunodefi ciency virus [HIV] disease; snomeddesc ription: Human immunodefi ciency virus infection; Report Immunity to Registry: Yes; Human immunodefi ciency virus infection; snomeddesc ription: Human immunodefi ciency virus infection; Report Immunity to Registry: Yes; Not Available [facility] 4 06:58:53 Steatosis of liver 185278921 Active 2006 Steatosis of liver; snomeddesc ription: Steatosis of liver; Report Immunity to Registry: Yes; Notes: u/s 2021; Fatty (change of) liver, not elsewhere classified ; snomeddesc ription: Steatosis of liver; Report Immunity to Registry: Yes; Notes: u/s 2021; Not Available [facility] 4 06:58:53 Herpesvir us infection 31007808 Active 2009 Herpesvira l infection, unspecifie d; snomeddesc ription: Herpes simplex; Report Immunity to Registry: Yes; Notes: HSV 1 pos serology; HSV 2 neg serology; Not Available [facility] 4 06:58:53 Fibromyos itis 40770276 Active 2006 Myalgia and myositis, unspecifie d; snomeddesc ription: Fibromyalg ia; Report Immunity to Registry: Yes; Notes: Chronic pain multiple/c hronic back pain; Not Available [facility] 4 06:58:53 Herpes simplex 83024630 Active 2009 Herpes simplex; snomeddesc ription: Herpes simplex; Report Immunity to Registry: Yes; Notes: HSV 1 pos serology; HSV 2 neg serology; Not Available [facility] 4 06:58:54 Kidney stone 54573720 Active 2001 Calculus of kidney; snomeddesc ription: Kidney stone; Report Immunity to Registry: Yes; Kidney stone; snomeddesc ription: Kidney stone; Report Immunity to Registry: Yes; Not Available [facility] 4 06:58:54 History of calculus of kidney 850981436 Active 2001 History of calculus of kidney; snomeddesc ription: History of calculus of kidney; Report Immunity to Registry: Yes; Not Available [facility] 4 06:58:54 Type B viral hepatitis 39702319 Active 2006 Type B viral hepatitis; snomeddesc ription: Type B viral hepatitis; Report Immunity to Registry: Yes; Notes: core ab pos; s ag neg; s ab neg HBV vL nondetecte d 2016; 2017; Not Available [facility] 4 06:58:54 Hyperplas ia of prostate 623516740 Active 2014 Hyperplasi a of prostate, unspecifie d, without urinary obstructio n and other lower urinary symptoms (LUTS); snomeddesc ription: Hyperplasi a of prostate; Report Immunity to Registry: Yes; Hyperplas ia of prostate; snomeddesc ription: Hyperplasi a of prostate; Report Immunity to Registry: Yes; Not Available [facility] 4 06:58:54 Anxiety 11525904 Active 1996 Anxiety; snomeddesc ription: Anxiety; Report Immunity to Registry: Yes; Not Available [facility] 4 06:58:54 Testicula r hypofunct ion 961804941 Active 2012 Other testicular hypofuncti on; snomeddesc ription: Male hypogonadi sm; Report Immunity to Registry: Yes; Not Available [facility] 4 06:58:54 Seasonal allergic rhinitis 727673442 Active 2012 Other seasonal allergic rhinitis; snomeddesc ription: Seasonal allergy; Report Immunity to Registry: Yes; Notes: hx nasal congestion ; Not Available [facility] 4 06:58:54 Onychomyc osis due to dermatoph yte 560247160 Active 2017 Tinea unguium; snomeddesc ription: Onychomyco sis; Report Immunity to Registry: Yes; Notes: feet digits; Not Available [facility] 4 06:58:55 Sleep apnea 42336894 Active 1999 Sleep apnea; snomeddesc ription: Sleep apnea; Report Immunity to Registry: Yes; Unspecifi ed sleep apnea; snomeddesc ription: Sleep apnea; Report Immunity to Registry: Yes; Not Available [facility] 4 06:58:55 Psychoact marj substance abuse 67134269 Active 2006 Other psychoacti ve substance abuse, uncomplica lucho; snomeddesc ription: Substance abuse; Report Immunity to Registry: Yes; Notes: opiate/suad jolene/benzo ; Not Available [facility] 4 06:58:55 Viral hepatitis B without hepatic coma 429051694 Active 2006 Unspecifie d viral hepatitis B without hepatic coma; snomeddesc ription: Type B viral hepatitis; Report Immunity to Registry: Yes; Notes: core ab pos; s ag neg; s ab neg HBV vL nondetecte d 2016; 2017; Not Available [facility] 4 06:58:55 Blood chemistry outside reference range 901331673 Active 2012 Other specified abnormal findings of blood chemistry; snomeddesc ription: Decreased testostero ne level; Report Immunity to Registry: Yes; Notes: hypogoandi sm; Not Available [facility] 4 06:58:55 Arthritis 1668950 Active 1998 Arthritis; snomeddesc ription: Arthritis; Report Immunity to Registry: Yes; Notes: Osteoatrth ris multiple; Not Available [facility] 4 06:58:55 History of urinary stone 517426466 Active 2001 Personal history of urinary calculi; snomeddesc ription: History of calculus of kidney; Report Immunity to Registry: Yes; Not Available [facility] 4 06:58:56 Fibromyal mika 964176856 Active 2006 Fibromyalg ia; snomeddesc ription: Fibromyalg ia; Report Immunity to Registry: Yes; Notes: Chronic pain multiple/c hronic back pain; Not Available [facility] 4 06:58:56 Lyme disease 85091317 Active 2017 Lyme disease; Report Immunity to Registry: Yes; Notes: tx cefuroxime x14 d (hx all Doxy); Not Available [facility] 4 06:58:56 Headache 16679226 Active 2008 Headache; snomeddesc ription: Headache; Report Immunity to Registry: Yes; Notes: migraine; Headache; snomeddesc ription: Headache; Report Immunity to Registry: Yes; Notes: migraine; Not Available [facility] 4 06:58:56 Hypertens marj disorder 97678391 Active 2017 Hypertensi ve disorder; snomeddesc ription: Hypertensi ve disorder; Report Immunity to Registry: Yes; Not Available [facility] 4 06:58:56 Arthropat hy 931125798 Active 1998 Arthropath y, unspecifie d, site unspecifie d; snomeddesc ription: Arthritis; Report Immunity to Registry: Yes; Notes: Osteoatrth ris multiple; Not Available [facility] 4 06:58:56 Essential hypertens ion 36493944 Active 2017 Essential (primary) hypertensi on; snomeddesc ription: Hypertensi ve disorder; Report Immunity to Registry: Yes; Not Available [facility] 4 06:58:57 Testoster one level below reference range 255602001 Active 2012 Decreased testostero ne level; snomeddesc ription: Decreased testostero ne level; Report Immunity to Registry: Yes; Notes: hypogoandi sm; Not Available [facility] 4 06:58:57 Insomnia 085992022 Active 1996 Insomnia; Report Immunity to Registry: Yes; Not Available [facility] 4 06:58:57 Anxiety state 551646034 Active 1996 Anxiety state, unspecifie d; snomeddesc ription: Anxiety; Report Immunity to Registry: Yes; Not Available [facility] 4 06:58:57 Onychomyc osis 330517782 Active 2017 Onychomyco sis; snomeddesc ription: Onychomyco sis; Report Immunity to Registry: Yes; Notes: feet digits; Not Available [facility] 4 06:58:57 Chronic hepatitis C 323359525 Active 2006 Chronic hepatitis C without mention [...] neg 2015;2017; 12/2021 F2 ; Not Available [facility] 4 06:58:57 Depressiv e disorder 21777277 Active 1996 Depressive disorder, not elsewhere classified ; snomeddesc ription: Depressive disorder; Report Immunity to Registry: Yes; Depressiv e disorder; snomeddesc ription: Depressive disorder; Report Immunity to Registry: Yes; Not Available [facility] 4 06:58:58 Seasonal allergy 557427950 Active 2012 Seasonal allergy; snomeddesc ription: Seasonal allergy; Report Immunity to Registry: Yes; Notes: hx nasal congestion ; Not Available [facility] 4 06:58:58 Loss of appetite 05593636 Active 2012 Anorexia; snomeddesc ription: Loss of appetite; Report Immunity to Registry: Yes; Loss of appetite; snomeddesc ription: Loss of appetite; Report Immunity to Registry: Yes; Not Available [facility] 4 06:58:58 Seizure 52481961 Active 2000 Seizure; snomeddesc ription: Seizure; Report [...] Report Immunity to Registry: Yes; Not Available [facility] 4 06:58:58 Problem Notes None recorded. Medical Equipment None Reported. Allergies Allergen ID Allergen Name Allergen Category Reaction Reaction Severity Criticality Documentation Date Start Date Code Code System Note Provider Name and Address Organization Details Recorded Time 714 Reglan medicatio n Not available Not available Not available 10/31/20232012 9230 RxNorm Comme nt: adver se_ev ent_t ype: 08742 8002; ; Not Available [facility] 4 06:50:47 715 Motrin medicatio n Not available Not available Not available 10/31/2023201248 8 RxNorm Comme nt: adver se_ev ent_t ype: 69048 8002; ; Not Available [facility] 4 06:50:47 716 doxycycli ne Not available Not available Not available Not available 10/31/20232017 3640 RxNorm Comme nt: adver se_ev ent_t ype: 35385 8002; ; Not Available [facility] 4 06:50:47 Medications Name Sig Start [...] ccal polysacc haride PPV23; SU_FULL_ NAME: Cheryl Taylorsusan scales; Not Available [...] Available Liquid Nutrition oral 0 Quantity : 69212; Duration : 30; 0 refill(s ) 09/30 [...] injectab le, quadriva lent; SU_FULL_ NAME: Cheryl Palomo yordy; VIS_DATE : 05:00:00 .0; Not [...] Pneumoco ccal conjugat e PCV20, polysacc haride PON673 conjugat e, adjuvant , PF; Not Available Not Available Not Available Vitals Date Recorded Body height Heart rate Respiratory rate Body temperature Body mass index (BMI) Body weight Systolic blood pressure Diastolic blood pressure Provider Name and Address Organization Details Last Updated DateTime 4 162.56 cm 89 /min 16 /min 98 [degF] 20.6 kg/m2 28467.0 8 g 123 mm[Hg] 90 mm[Hg] [address] STRE[address] MD [facility] 4 14:28:38 Social History None [...] Time Meningococcal MCV4O 9 completed Not Available [facility] 10/31/2023 06:54:49 zoster live 9 completed Not Available [facility] 10/31/2023 06:54:50 Influenza, split virus, quadrivalent, preservative 9 completed Not Available [facility] 10/31/2023 06:54:50 Influenza, split virus, quadrivalent, preservative 8 completed Not Available [facility] 10/31/2023 06:54:50 Influenza, split virus, quadrivalent, preservative 0 completed Not Available [facility] 10/31/2023 06:54:50 Past Encounters Encounter ID Performer Location Encounter Start Date Encounter Closed Date Diagnosis/Indication Diagnosis SNOMED-CT Code Diagnosis ICD10 Code Diagnosis Note [id number] MD Main Office [address] [place] [address] 05/20/2024 10:17:53 05/20/2024 12:44:49 Cachexia associated with AIDS 928887883 R64 B20 continue Serostim 6mg s/c qd abdomen. goal is to increase weight, endurance and muscle masscontin ue Megace G tube qd 5cc qdCNA and nurse helping with compliance and tx.potenti al side effects reviewed.t o call with any concerns Human immunodeficiency virus infection 31057569 B20 HIV.Contin ue Biktarvy 1 tab po qd.padmini hoffman reviewedla bs today Candidiasi s of the esophagus 61177663 B37.81 sandy glabrataho ld fluconazol e for nowSTART 1 tab po bid x 21 says for esophageal sandy glabrata.c all with any side effects. [address] MD Main Office [address] [place] [address] 06/18/2024 10:10:09 06/18/2024 11:12:33 Cachexia associated with AIDS 579124907 R64 B20 continue Serostim 6mg s/c qd abdomen. goal is to increase weight, endurance and muscle massCNA and nurse helping with compliance and tx.megace on holdpotent ial side effects reviewed.t o call with any concerns Human immunodeficiency virus infection 11575489 B20 HIV.Contin ue Biktarvy 1 tab po qd.padmini hoffman reviewedla bs today Inflammato ry disease of liver 674379998 K75.9 Suspect 2nd to concomitan t medication s. ongoingdo not re-start fluconazol e nor megacenega tive infectious and non-infect ious workupto call or ER if jaundice, abd pain, n/v/d marce aleksandar History of calculus of kidney 023896865 Z87.442 u/s 05/[address] scan 02/2024hydr ation Aspiration pneumonia 422 740031 J69.0 s/p aspiration on CT AngioNPO per instructio n given to him in hospital; nutrition by G tubes/p (ceftriaxo ne,Azithro ,Flagyl while in Hospital;d ischarged on azithro and cefpodoxim e x 3 days which he completed. leg elevationa void sedating meds as much as possible Deep venou s thrombosis of lower extremity 381143293 I82.409 left lower extremity doppler showed DVT of gastrocnem ius vein;on tx w w Eliquis bid . Pulmonary embolism [address] Angio was positive for Acute lobar PEs/p heparin; ongoing Eliquis bidmed list reviewed.n o drug use for years. not on maintenanc e tx.denies current ETOH use. Health Concerns Section Related Observation LastModified by Organization Detai ls LastModified Time None Recorded Concern Status LastModified by Organization Details LastModified Time None Recorded Payers Encounter Date Sequence Insurance Name Policy Number Policy Perry Covered Member ID Prery Member ID Guarantor Name 06/18/2024 1 [facility] - DOS ON OR AFTER 2022 - MEDICARE ADVANTAGE [place] (MEDICARE REPLACEMENT/ADV ANTAGE - PPO) [employer] Fall [id number] [employer] [facility] Notes Date Note Type Note Provider Name and Address Organization Details Recorded Time 06/18/2024 text/html HIVOn Biktarvy 1 tab po qd.reports daily compliance. denies missing dose.resolved thrush. hx recurrence. fluconazole and voriconazole on hold. Pt reports was hospitalized at [facility] 06/10/24-06/13/24 ( got to ER on [...] VL nondetetcted01/2024 HIV VL nondetcetd;eGFR=76;A ST/ALT wnl;11/2023 CB5=205; HIV VLnondetceted; no infections.01/2022 EY6=253; HIV VL nondetceted; eGFR>60; ALt/AST wnl; syphilis neg; GC/chlamydia neg Cheryl Street MD [address] [place] [address], [phone], [address] - [address] MD [facility] 06/18/2024 18:19:56
--- OUTSIDE RECORDS SUMMARY | 2024-09-15 11:03 | XMS_ITS | Continuity of Care Document ---
Author Organization [facility], Main Office Address [address] [place] [address] Assessment No assessment recorded. Plan of Treatment Reminders Order Date Submit Date Provider Last Modified By Organization Details Last Modified Time Details Appointments RESEARCH FOLLOW UP 2024 11:[address] MD Not available Not available Not available Lab None recorded . Referral None recorded . Procedures None recorded . Surgeries None recorded . Imaging electroc ardiogra m 2023 024 [facility] Main Office, [address] [place] [address], [phone], 07/15/2024 15:47:38 Medication Orders None recorded . Patient TargetsNo targets recorded. Patient InstructionsNo instructions recorded. Reason for Referral None Reported. Results Created Date Observation Date Name Description Value Unit Range Abnormal Flag Note LastModifiedBy Organization Detail LastModifiedTime 06/18/20 24 06/04/2024 US, abdom en, compl ete No observ ation record ed. [email or web address] [facility], [place], [address], 06/18/2024 11:12:25 07/15/2007/15/2024 elect rocar diogr am No observ ation record ed. [facility] Main Office [address] [place] [address], [phone], 07/15/2024 17:12:05 07/17/20 elect rocar diogr am No observ ation record ed. [email or web address] Main Office [address] [place] [address], [phone], 07/17/2024 14:15:04 Result Notes None recorded. Problems Name Problem SNOMED Code Status Onset Date Resolution Date Notes Provider Name and Address Organization Details Recorded Time Asthma 917310202 Active 2006 Asthma; snomeddesc ription: Asthma; Report Immunity to Registry: Yes; Asthma; Report Immunity to Registry: Yes; ReasonDate : 10/13/2019 ; ; Start Date : 10/13/2019 Asthma; snomeddesc ription: Asthma; Report Immunity to Registry: Yes; Not Available [facility] 4 06:58:53 Male hypogonad ism 86050673 Active 2012 Male hypogonadi sm; snomeddesc ription: Male hypogonadi sm; Report Immunity to Registry: Yes; Not Available [facility] 4 06:58:53 Diarrhea 51503738 Active 2006 Diarrhea; snomeddesc ription: Diarrhea; Report Immunity to Registry: Yes; Diarrhea, unspecifie d; snomeddesc ription: Diarrhea; Report Immunity to Registry: Yes; Not Available [facility] 4 06:58:53 Substance abuse 55803151 Active 2006 Substance abuse; snomeddesc ription: Substance abuse; Report Immunity to Registry: Yes; Notes: opiate/suad jolene/benzo ; Not Available [facility] 4 06:58:53 Human immunodef iciency virus infection 76457778 Active 1991 Human immunodefi ciency virus [HIV] disease; snomeddesc ription: Human immunodefi ciency virus infection; Report Immunity to Registry: Yes; Human immunodefi ciency virus infection; snomeddesc ription: Human immunodefi ciency virus infection; Report Immunity to Registry: Yes; Not Available [facility] 4 06:58:53 Steatosis of liver 952477756 Active 2006 Steatosis of liver; snomeddesc ription: Steatosis of liver; Report Immunity to Registry: Yes; Notes: u/s 2021; Fatty (change of) liver, not elsewhere classified ; snomeddesc ription: Steatosis of liver; Report Immunity to Registry: Yes; Notes: u/s 2021; Not Available [facility] 4 06:58:53 Herpesvir us infection 05357036 Active 2009 Herpesvira l infection, unspecifie d; snomeddesc ription: Herpes simplex; Report Immunity to Registry: Yes; Notes: HSV 1 pos serology; HSV 2 neg serology; Not Available [facility] 4 06:58:53 Fibromyos itis 46719331 Active 2006 Myalgia and myositis, unspecifie d; snomeddesc ription: Fibromyalg ia; Report Immunity to Registry: Yes; Notes: Chronic pain multiple/c hronic back pain; Not Available [facility] 4 06:58:53 Herpes simplex 08757367 Active 2009 Herpes simplex; snomeddesc ription: Herpes simplex; Report Immunity to Registry: Yes; Notes: HSV 1 pos serology; HSV 2 neg serology; Not Available [facility] 4 06:58:54 Kidney stone 80460424 Active 2001 Calculus of kidney; snomeddesc ription: Kidney stone; Report Immunity to Registry: Yes; Kidney stone; snomeddesc ription: Kidney stone; Report Immunity to Registry: Yes; Not Available [facility] 4 06:58:54 History of calculus of kidney 781651493 Active 2001 History of calculus of kidney; snomeddesc ription: History of calculus of kidney; Report Immunity to Registry: Yes; Not Available [facility] 4 06:58:54 Type B viral hepatitis 32486358 Active 2006 Type B viral hepatitis; snomeddesc ription: Type B viral hepatitis; Report Immunity to Registry: Yes; Notes: core ab pos; s ag neg; s ab neg HBV vL nondetecte d 2016; 2017; Not Available [facility] 4 06:58:54 Hyperplas ia of prostate 777877648 Active 2014 Hyperplasi a of prostate, unspecifie d, without urinary obstructio n and other lower urinary symptoms (LUTS); snomeddesc ription: Hyperplasi a of prostate; Report Immunity to Registry: Yes; Hyperplas ia of prostate; snomeddesc ription: Hyperplasi a of prostate; Report Immunity to Registry: Yes; Not Available [facility] 4 06:58:54 Anxiety 33319258 Active 1996 Anxiety; snomeddesc ription: Anxiety; Report Immunity to Registry: Yes; Not Available [facility] 4 06:58:54 Testicula r hypofunct ion 904101695 Active 2012 Other testicular hypofuncti on; snomeddesc ription: Male hypogonadi sm; Report Immunity to Registry: Yes; Not Available [facility] 4 06:58:54 Seasonal allergic rhinitis 961233942 Active 2012 Other seasonal allergic rhinitis; snomeddesc ription: Seasonal allergy; Report Immunity to Registry: Yes; Notes: hx nasal congestion ; Not Available [facility] 4 06:58:54 Onychomyc osis due to dermatoph yte 937076557 Active 2017 Tinea unguium; snomeddesc ription: Onychomyco sis; Report Immunity to Registry: Yes; Notes: feet digits; Not Available [facility] 4 06:58:55 Sleep apnea 63097736 Active 1999 Sleep apnea; snomeddesc ription: Sleep apnea; Report Immunity to Registry: Yes; Unspecifi ed sleep apnea; snomeddesc ription: Sleep apnea; Report Immunity to Registry: Yes; Not Available [facility] 4 06:58:55 Psychoact marj substance abuse 59797084 Active 2006 Other psychoacti ve substance abuse, uncomplica lucho; snomeddesc ription: Substance abuse; Report Immunity to Registry: Yes; Notes: opiate/suad jolene/benzo ; Not Available [facility] 4 06:58:55 Viral hepatitis B without hepatic coma 885208348 Active 2006 Unspecifie d viral hepatitis B without hepatic coma; snomeddesc ription: Type B viral hepatitis; Report Immunity to Registry: Yes; Notes: core ab pos; s ag neg; s ab neg HBV vL nondetecte d 2016; 2017; Not Available [facility] 4 06:58:55 Blood chemistry outside reference range 713868669 Active 2012 Other specified abnormal findings of blood chemistry; snomeddesc ription: Decreased testostero ne level; Report Immunity to Registry: Yes; Notes: hypogoandi sm; Not Available [facility] 4 06:58:55 Arthritis 6215570 Active 1998 Arthritis; snomeddesc ription: Arthritis; Report Immunity to Registry: Yes; Notes: Osteoatrth ris multiple; Not Available [facility] 4 06:58:55 History of urinary stone 688619680 Active 2001 Personal history of urinary calculi; snomeddesc ription: History of calculus of kidney; Report Immunity to Registry: Yes; Not Available [facility] 4 06:58:56 Fibromyal mika 958982894 Active 2006 Fibromyalg ia; snomeddesc ription: Fibromyalg ia; Report Immunity to Registry: Yes; Notes: Chronic pain multiple/c hronic back pain; Not Available [facility] 4 06:58:56 Lyme disease 71698966 Active 2017 Lyme disease; Report Immunity to Registry: Yes; Notes: tx cefuroxime x14 d (hx all Doxy); Not Available [facility] 4 06:58:56 Headache 50886764 Active 2008 Headache; snomeddesc ription: Headache; Report Immunity to Registry: Yes; Notes: migraine; Headache; snomeddesc ription: Headache; Report Immunity to Registry: Yes; Notes: migraine; Not Available [facility] 4 06:58:56 Hypertens marj disorder 56126879 Active 2017 Hypertensi ve disorder; snomeddesc ription: Hypertensi ve disorder; Report Immunity to Registry: Yes; Not Available [facility] 4 06:58:56 Arthropat hy 757121488 Active 1998 Arthropath y, unspecifie d, site unspecifie d; snomeddesc ription: Arthritis; Report Immunity to Registry: Yes; Notes: Osteoatrth ris multiple; Not Available [facility] 4 06:58:56 Essential hypertens ion 50849238 Active 2017 Essential (primary) hypertensi on; snomeddesc ription: Hypertensi ve disorder; Report Immunity to Registry: Yes; Not Available [facility] 4 06:58:57 Testoster one level below reference range 044902168 Active 2012 Decreased testostero ne level; snomeddesc ription: Decreased testostero ne level; Report Immunity to Registry: Yes; Notes: hypogoandi sm; Not Available [facility] 4 06:58:57 Insomnia 608002762 Active 1996 Insomnia; Report Immunity to Registry: Yes; Not Available [facility] 4 06:58:57 Anxiety state 690260501 Active 1996 Anxiety state, unspecifie d; snomeddesc ription: Anxiety; Report Immunity to Registry: Yes; Not Available [facility] 4 06:58:57 Onychomyc osis 957839085 Active 2017 Onychomyco sis; snomeddesc ription: Onychomyco sis; Report Immunity to Registry: Yes; Notes: feet digits; Not Available [facility] 4 06:58:57 Chronic hepatitis C 462016641 Active 2006 Chronic hepatitis C without mention [...] [facility] 4 06:58:57 Depressiv e disorder 75618623 Active 1996 Depressive disorder, not elsewhere classified ; snomeddesc ription: Depressive disorder; Report Immunity to Registry: Yes; Depressiv e disorder; snomeddesc ription: Depressive disorder; Report Immunity to Registry: Yes; Not Available [facility] 4 06:58:58 Seasonal allergy 202182578 Active 2012 Seasonal allergy; snomeddesc ription: Seasonal allergy; Report Immunity to Registry: Yes; Notes: hx nasal congestion ; Not Available [facility] 4 06:58:58 Loss of appetite 28589663 Active 2012 Anorexia; snomeddesc ription: Loss of appetite; Report Immunity to Registry: Yes; Loss of appetite; snomeddesc ription: Loss of appetite; Report Immunity to Registry: Yes; Not Available [facility] 4 06:58:58 Seizure 92913897 Active 2000 Seizure; snomeddesc ription: Seizure; Report [...] Organization Details LastModified Time 07/15/2024 [facility] Main [address], [address], 07/15/2024 17:12:05 Procedure Notes None recorded. Medical Equipment None Reported. Allergies Allergen ID Allergen Name Allergen Category Reaction Reaction Severity Criticality Documentation Date Start Date Code Code System Note Provider Name and Address Organization Details Recorded Time 714 Reglan medicatio n Not available Not available Not available 10/31/20232012 9230 RxNorm Comme nt: adver se_ev ent_t ype: 07787 8002; ; Not Available [facility] 4 06:50:47 715 Motrin medicatio n Not available Not available Not available 10/31/2023201248 8 RxNorm Comme nt: adver se_ev ent_t ype: 48668 8002; ; Not Available [facility] 4 06:50:47 716 doxycycli ne Not available Not available Not available Not available 10/31/20232017 3640 RxNorm Comme nt: telma se_ev ent_t ype: 54533 8002; ; Not Available [facility] [...] Available Liquid Nutrition oral 0 Quantity : 00368; Duration : 30; 0 refill(s ) 09/30 [...] VACCINE_ NAME: Meningoc occal MCV4O; SU_FULL_ NAME: Cehryl scales; VIS_DATE : 14:17:37 .0; Not Available [...] Pneumoco ccal conjugat e PCV20, polysacc haride CES215 conjugat e, adjuvant , PF; Not Available Not Available Not Available Vitals Date Recorded Body height Provider Name an d Address Organization Details Last Updated DateTime 07/15/[address] [facility] 07/15/2024 15:22:29 Date Recorded Body temperature Body mass index (BMI) Body weight Respiratory rate Heart rate Systolic blood pressure Diastolic blood pressure Provider Name and Address Organization Details Last Updated DateTime 98.7 [degF] 20.6 kg/m2 21677.0 8 g 20 /min 87 /min 120 mm[Hg] 80 mm[Hg] Cehryl Street MD [address] [place] [address] [place], [place], [address], [address] [address] [facility] 15:46:02 Social History None recorded. Functional [...] SNOMED-CT Code Diagnosis ICD10 Code Diagnosis Note [address] MD Main Office [address] [place] [address] 06/18/2024 10:10:09 06/18/2024 11:12:33 Cachexia associated with AIDS 261192503 R64 B20 continue Serostim 6mg s/c qd abdomen. goal is to increase weight, endurance and muscle massCNA and nurse helping with compliance and tx.megace on holdpotent ial side effects reviewed.t o call with any concerns Human immunodeficiency virus infection 83387163 B20 HIV.Contin ue Biktarvy 1 tab po qd.complia nce reviewedla bs today Inflammato ry disease of liver 904391640 K75.9 Suspect 2nd to concomitan t medication s. ongoingdo not re-start fluconazol e nor megacenega tive infectious and non-infect ious workupto call or ER if jaundice, abd pain, n/v/d marce aleksandar History of calculus of kidney 317078870 Z87.442 u/s 05/[address] scan 02/2024hydr ation Aspiration pneumonia 422 087288 J69.0 s/p aspiration on CT AngioNPO per instructio n given to him in hospital; nutrition by G tubes/p (ceftriaxo ne,Azithro ,Flagyl while in Hospital;d ischarged on azithro and cefpodoxim e x 3 days which he completed. leg elevationa void sedating meds as much as possible Deep venou s thrombosis of lower extremity 012445343 I82.409 left lower extremity doppler showed DVT of gastrocnem ius vein;on tx w w Eliquis bid . Pulmonary embolism [address] Angio was positive for Acute lobar PEs/p heparin; ongoing Eliquis bidmed list reviewed.n o drug use for years. not on maintenanc e tx.denies current ETOH use. [address] MD Main Office [address] [place] [phone] 07/15/2024 15:10:10 07/15/2024 15:45:30 Cachexia associated with AIDS 351898296 R64 B20 continue Serostim 6mg s/c qd abdomen. goal is to increase weight, endurance and muscle masspotent ial side effects reviewed.t o call with any concerns Human immunodeficiency virus infection 42069306 B20 HIV.Contin ue Biktarvy 1 tab po qd.complia nce reviewedla bs Candidiasi s of the esophagus 50506553 B37.81 on clotrimazo le. swish and spit qd Medication monitoring 39 9032220 Z51.81 Health Concerns Section Related Observation LastModified by Organization Detai ls LastModified Time None Recorded Concern Status LastModified by Organization Details LastModified Time None Recorded Payers Encounter Date Sequence Insurance Name Policy Number Policy Perry Covered Member ID Perry Member ID Guarantor Name 07/15/2024 1 [facility] - DOS ON OR AFTER 2022 - MEDICARE ADVANTAGE [place] (MEDICARE REPLACEMENT/ADV ANTAGE - PPO) Benjamin Fall [id number] Benjamin Fall Notes Date Note Type Note [...] VL nondetetcted01/2024 HIV VL nondetcetd;eGFR=76;AST /ALT wnl;11/2023 XD9=073; HIV VLnondetceted; no infections. Cheryl Street MD [address] [place] [address], [phone], [facility] [address] [facility] 07/15/2024 15:47:48
[2024-09-15 13:12] LABS: Cortisol Random 2.7 ug/dL
== END 2024-09-15 10:06 | disposition home or self-care (01) ==
LOC: HO.LAB 10:05
PROVIDERS: PCP Student in an Organized Health Care Education/Training Program; Visit Provider Student in an Organized Health Care Education/Training Program
DX: E27.8 Other specified disorders of adrenal gland (principal)
CPT/HCPCS: 36415; 82533

== ENCOUNTER 2024-09-16 08:59 | Outpatient (REF) | payer OTHER, SELFPAY ==
--- NOTE | ~2024-09-16 | CT_ITS ---
CLINICAL HISTORY: R91.1 - Solitary pulmonary nodule CT chest without contrast Comparison: CT/SR - CT CHEST WO IV CON - 04/14/24 04:29 EDT REG/SR - CT CHEST WO IV CON - 01/10/24 13:28 EDT Findings: The heart size is normal. Calcification of the coronary vasculature. The visualized thyroid and mediastinum are unremarkable. No consolidation or effusion. Previously seen ground-glass density within the right upper lobe posteriorly has resolved. Visualized portions of the upper abdomen demonstrate a 2 mm nonobstructing calculus within the superior pole left kidney as before. No acute fractures. IMPRESSION: 1. No acute process. 2. Coronary artery disease. This document has been electronically signed by: Jonnie Gutierrez MD on 09/16/2024 14:39:38
--- OUTSIDE RECORDS SUMMARY | 2024-09-16 09:20 | XMS_ITS ---
Demographics Address [address] [facility] [address] [place] [address] Preferred Language en Marital Status Unknown Oriental Orthodox Affiliation Unknown Race White Ethnic Group Not or Lati no Author Organization [facility] Address [address] [place] [address] Care Team Providers Care Project Management Consultant Name Role Phone Terese Rivera Primary Care Provider Pepe Dangelo Unavailable [phone] REASON FOR VISIT Patient presents today for [...] ve Encounters Encounter Location Date Provider Diagnosis [facility] [address] [place] [address] 12/14/2023 Pepe Stephenson PLAN OF TREATMENT Next Appt Details Provider Name:Pepe Stephenson , 10/09/2024 09:40:00 AM, [address], [address], [place], [address],
--- OUTSIDE RECORDS SUMMARY | 2024-09-16 09:20 | XMS_ITS ---
Demographics Address [address] [facility] [address] [place] [address] Preferred Language en Marital Status Unknown Taoist Affiliation Unknown Race White Ethnic Group Not or Lati no Author Organization [facility] Address [address] [place] [address] Care Team Providers Care Audio Installer Name Role Phone Terese Rivera Primary Care Provider Pepe Dangelo [phone] Encounters Encounter Location Date Provider Diagnosis [facility] [address] [place] [address] 08/21/2023 Pepe Stephenson PLAN OF TREATMENT Next Appt Details Provider Name:Pepe Stephenson , 10/09/2024 09:40:00 AM, [address], [address], [place], [address],
--- OUTSIDE RECORDS SUMMARY | 2024-09-16 09:20 | XMS_ITS ---
Demographics Address [address] [facility] [address] [place] [address] Preferred Language en Marital Status Unknown Uatsdin Affiliation Unknown Race White Ethnic Group Not or Lati no Author Organization [facility] Address [address] [place] [address] Care Team Providers Care Plastics Process Hand Name Role Phone Terese Rivera Primary Care Provider Pepe Dangelo Unavailable [phone] REASON FOR VISIT Pt no show Encounters Encounter Location Date Provider Diagnosis [facility] [address] [place] [address] 12/14/2023 Pepe Stephenson PLAN OF TREATMENT Next Appt Details Provider Name:Pepe Stephenson , 10/09/2024 09:40:00 AM, [address], [address], [place], [address],
--- OUTSIDE RECORDS SUMMARY | 2024-09-16 09:21 | XMS_ITS | Data Portability ---
Author Organization [facility] [employer] [facility], Main Office Address [address] [facility], [address] [place] [address] Care Team Providers Care Vp Talent Management Name Role Phone BRENDAN HOLLINGSWORTH - 2ND FLOOR OTHER Assessment Encounter Date Assessment Date Assessment LastModified by Organization Details LastModified Time 09/18/2023 09/18/2023 45 minutes spent on coordination of discharge. [email or web address] Not available 09/18/2023 09:47:05 Plan of Treatment [...] and Address Organization Details Recorded Time Asthenia 66872521 Active 2022 MAURO DUFFY NP [address] [facility], [address], [place], [address], [facility] [employer] 3 12:08:07 Moderate protein-calori e malnutrition (weight for age 60-74 percent of standard) 659718090 Active 2022 MAURO DUFFY NP [address] [facility], [address], [place], [address], [facility] [employer] 3 12:08:23 Pneumonia 309639230 Active 2022 MAURO DUFFY NP [address] [facility], [address], [place], [address], [facility] [employer] 3 12:08:31 Pleural effusion 93206725 Active 2022 MAURO DUFFY NP [address] [facility], [address], [place], [address], [facility] 3 12:08:59 Hypertensive disorder 27132080 Active 2022 MAURO DUFFY NP [address], [address], [place], [address], [facility] [facility] 3 12:09:07 Human immunodeficien cy virus infection 57086471 Active 2022 MAURO DUFFY NP [address], [address], [place], [address], [facility] 3 12:09:12 Viral hepatitis C 72136173 Active 2022 MAURO DUFFY NP [address], [address], [place], [address], [facility] 3 12:09:28 Mixed anxiety and depressive disorder 824784572 Active 2022 MAURO DUFFY NP [address], [address], [place], [address], [facility] 3 12:09:40 Asthma 309256648 Active 2022 MAURO DUFFY NP [address], [address], [place], [address], [facility] 3 12:09:56 Acute dermatitis 12207084 Active 2022 MAURO DUFFY NP [address], [address], [place], [address], [facility] 3 12:14:27 Migraine 60124787 Active 2022 MAURO DUFFY NP [address], [address], [place], [address], [facility] 3 12:25:08 Non-traumatic rhabdomyolysis 934794346 Active 2022 Leilani Romeo MD [address], [address], [place], [address], [facility] 3 10:08:19 Moderate persistent asthma 411833095 Active 2022 Leilani Romeo MD [address], [address], [place], [address], [facility] 3 10:18:10 Insomnia 129369732 Active 2022 Leilani Romeo MD [address], [address], [place], [address], [facility] 3 10:19:09 Polysubstance abuse 055656493 Active 2022 Leilani Romeo MD [address], [address], [place], [address], [facility] 3 10:19:11 Adult failure to thrive syndrome 223444865 Active 2022 Maryjane Glover NP [address], [address], [place], [address], [facility] 3 13:27:15 Anemia 540814802 Active 2022 Maryjane Glover NP [address], [address], [place], [address], [facility] 3 13:30:43 Dysphagia 62117790 Active 2022 Leilani Romeo MD [address], [address], [place], [address], [facility] 3 20:51:38 Gastroesophage al reflux disease without esophagitis 178271305 Active 2022 Leilani Romeo MD [address], [address], [place], [address], [facility] 3 20:54:24 Chronic pain 20572819 Active 2022 Leilani Romeo MD [address], [address], [place], [address], [facility] 3 20:55:56 Problem Notes None recorded. Medical Equipment None Reported. Allergies Allergen ID Allergen Name Allergen Category Reaction Reaction Severity Criticality Documentation Date Start Date Code Code System Note Provider Name and Address Organization Details Recorded Time [id number] 2824e codeine medicatio n Not available Not available Not available 01/17/2023 2670 RxNorm rash Not Available Not Available Not Available [id number] [id number] 2824e Levaquin medicatio n Not available Not available Not available 01/17/2023 87005 2 RxNorm rash Not Available Not Available Not Available [id number] 561182403 [id number] 2824e Reglan medicatio n Not available Not available Not available 01/17/2023 9230 RxNorm rash Not Available Not Available Not Available [id number] 214802389 [id number] 2824e ibuprofen medicatio n Not available Not available Not available 01/17/2023 5640 RxNorm reflu x Not Available Not Available Not Available [id number] [id number] [id number] 2824e Medicinal product containin g penicilli n and acting as antibacte rial agent (product) medicatio n Not available Not available Not available 01/17/2023 96532 05 SNOMED rash Not Available Not Available Not Available [id number] 807150101 [id number] 2824e Ultram medicatio n Not available Not available Not available 01/17/2023 31283 6 RxNorm N/V Not Available Not Available Not Available [id number] 29b50 acetamino phen medicatio n other Not available unabletoasse 08/03/2023 161 RxNorm unkno wn Not Available Not Available Not Available [id number] 29b50 [employer] environme nt,medica tion other Not available unabletoasse 08/03/2023 07343 6 RxNorm unkno wn Not Available Not [...] Details Last Updated DateTime 3 167.64 cm 53383.5 4 g 17.4 kg/m2 86 /min 18 /min 97.6 [degF] 91 % 91 % 115 mm[Hg] 68 mm[Hg] Maryjane Glover NP [address] [facility], [address], [place], [address], [facility] 3 11:08:33 Date Recorded Body height Body weight Heart rate Respiratory rate Body temperature Oxygen saturation Oxygen saturation in Arterial blood by Pulse oximetry Systolic blood pressure Diastolic blood pressure Provider Name and Address Organization Details Last Updated DateTime 3 167.64 cm 12417.5 4 g 72 /min 18 /min 97.1 [degF] 96 % 96 % 115 mm[Hg] 68 mm[Hg] Maryjane Glover NP [address] [facility], [facility] [address], [place], [address], [facility] 3 13:10:32 Date Recorded Body height Body mass index (BMI) Body weight Heart rate Systolic blood pressure Diastolic blood pressure Provider Name and Address Organization Details Last Updated DateTime 3 167.64 cm 17.3 kg/m2 73600.3 8 g 74 /min 133 mm[Hg] 85 mm[Hg] Dilia Gonzalez [address] [facility], [address], [place], [address], [facility] 3 13:13:45 Date Recorded Body height Body weight Heart rate Respiratory rate Body temperature Oxygen saturation Oxygen saturation in Arterial blood by Pulse oximetry Systolic blood pressure Diastolic blood pressure Provider Name and Address Organization Details Last Updated DateTime 4 167.64 cm 54680.5 4 g 88 /min 18 /min 97.6 [degF] 96 % 96 % 133 mm[Hg] 85 mm[Hg] Maryjane Glover NP [address] [facility], [address], [place], [address], [facility] 4 19:10:48 Date Recorded Body height Heart rate Respiratory rate Body temperature Oxygen saturation Oxygen saturation in Arterial blood by Pulse oximetry Systolic blood pressure Diastolic blood pressure Provider Name and Address Organization Details Last Updated DateTime 4 167.64 cm 84 /min 18 /min 97.5 [degF] 98 % 98 % 133 mm[Hg] 85 mm[Hg] MAURO DUFFY NP [address], [address], [place], [address], [facility] 4 08:57:54 Social History Question Answer Notes LastModified by Organizat ion Details LastModified Time Tobacco Smoking Status Never Smoker MAURO DUFFY NP [address], [address], [place], [address], [facility] 01/17/2023 11:35:26 Do You Have An Advance Directive? Yes [email or web address] Information not available 01/17/2023 What Is Your Level Of Alcohol Consumption? None [email or web address] Information not available 01/17/2023 What Is Your Code Status? Full Code Information not available 01/17/2023 Where Do You Live? Apartment With Elevator, Family Near By, Helpful [email or web address] Information not available 01/17/2023 What Was The Date Of Your Most Recent Tobacco Screening? 08/03/2023 Information not available 08/03/2023 Do You Use Any Illicit Or Recreational Drugs? No Noted Past Use Cocaine Information not available 08/03/2023 Has Tobacco Cessation Counseling Been Provided? No [email or web address] Information not available 01/17/2023 Do You Or Have You Ever Used Any Other Forms Of Tobacco Or Nicotine? No [email or web address] Information not available 01/17/2023 Sex: Unknown Functional Status None recorded. Mental Status None recorded. Family History Relationship Description Onset Age of this Age Resolved Age Notes LastModified by Organization Details LastModified Time Mother Malignant tumor of lung [email or web address] Not available 2022 11:34:21 Medical History No medical history recorded. Immunizations Vaccine Type Date Status Note Provider Nam e and Address Organization Details Recorded Time COVID-19, mRNA, LNP-S, bivalent, PF, 50 mcg/0.5 mL or 25mcg/0.25 mL dose [address] [facility] 09/11/2023 13:44:56 COVID-19, mRNA, LNP-S, bivalent, PF, 50 mcg/0.5 mL or 25mcg/0.25 mL dose 3 completed Asia juarez, [facility] 09/11/2023 13:45:39 Pneumococcal conjugate PCV20, polysaccharide [id number] conjugate, adjuvant, PF 3 completed Asia juarez, [facility] 09/11/2023 13:46:16 Influenza, adjuvanted, quadrivalent, PF 3 completed Asia juarez, [facility] 09/11/2023 13:46:36 Influenza, adjuvanted, quadrivalent, PF 2 completed Asia juarez, [facility] 10/24/2023 13:13:32 Past Encounters Encounter ID Performer Location Encounter Start Date Encounter Closed Date Diagnosis/Indication Diagnosis SNOMED-CT Code Diagnosis ICD10 Code Diagnosis Note [id number] MAURO DUFFY NP [address] [address] 01/17/2023 11:16:19 01/22/2023 12:34:21 Pleural effusion 41686318 J90 and empyema, resp. failures/p L chest tube, intubation Clinically improved.M onitor VS, sats, LS, CP status closely for decompensa tion Pneumonia 914067729 J18. 9 Treated with IV zosyn in hosp.Clini lesly improved.A s above, monitlr VS, sats, LS, CP status closely Asthenia 01683144 R53.1 PT OT eval and tx. Moderate protein-calorie malnutrition (weight for age 60-74 percent of standard) 318364579 E44.0 Started supplement s in hosp.Refer to icu manager here.Seen by in hosp, diet changed to chopped/ad vanced consistenc yOn reg. diet here, doing well. Refer to rehab to try to get bedside FEES testing Hypertensive disorder 38 064188 I10 On norvasc 5 mg dailyPropr anolol ER held in hosp., instructed to resume 03/09, unclear as to why held or if used for something else?Monio r VS, adjust meds prn Human immunodeficiency virus infection 69201666 B20 Continue biktarvy Mixed anxi ety and depressive disorder 120234363 F41.8 Continue home meds:clona zepam 1 mg daily? risperdal 2 mg HSremeron 60 mg HSMonitor mood, behaviors for changePsyc h eval prn Asthma 868335128 J45.90 9 Continue flovent bidMonitor resp. status for change Acute dermatitis 8507401 6 L30.9 bilat. groin, fungalstar t nystatin cream or powder bid x 14 days or until clearmonit or Migraine 61207005 G43.90 9 Continue home meds:Celeb monica 200 mg bidgabapen tin 600 mg tidibuprof en 800 mg q8 hr prnultram 50 daily prn? clonazepam 1 mg daily? risperdal 2 mg HS? propranolo l Er 120 mg daily - held in hosp - cont. to hold here, resume date of 03/09 [id number] Kenia Michaels MD [address] [address] 01/19/2023 07:22:18 01/22/2023 15:16:30 Pneumonia 421427181 J15.8 antibiotic s completeds /p empyema, respirator y failure, intubation will monitor Asthenia 30966161 R53.1 PT/OTwill monitor Human immunodeficiency virus infection 49604822 B20 Biktarvy 50-200-25 dailyfu I.D. Essential hypertension 38719044 I10 amlodipine 5 mg dailywill monitor Mixed anxi ety and depressive disorder 606033282 F41.8 gabapentin 600 mg tidmirtaza pine 60 mg at hsrisperid one 2 mg at hsclonazep am 1 mg dailywill monitor Gastroesop hageal reflux disease without esophagitis 679322431 K21.9 pantoprazo le 40 mg dailywill monitor Chronic pain 99012426 G8 9.29 gabapentin 600 mg tidhospita l discharge notes include:ce lecoxib 200 m bid, ibuprofen 800 mg q8h prn, tramadol 50 mg daily prnwill monitor and consider if needed [id number] Panchito Morales NP [facility] on [address] [place] [address] 06/30/2023 08:20:37 07/03/2023 11:44:52 Human immunodeficiency virus infection 39222449 B20 06/30/23mo nitorID consult as indicated- biktarvy (bictegrav ir, emtricitab ine & tenofovir alafenamid e) 50-200-25m g QD Hypertensive disorder 38 162936 I10 06/30/23mo nitorcards FU PRNavoid beta barb with HX of cocaine abuse-amlo dipine 5mg QD Mixed anxi ety and depressive disorder 869168551 F41.8 06/30/23mo nitorpsych consult PRN-risper idone 3mg QHS Viral hepatitis C 863845 07 B19.20 06/30/23mo nitor [id number] Leilani Romeo MD [facility] on [address] [place] [address] 07/02/2023 17:00:01 07/12/2023 14:37:46 Human immunodeficiency virus infection 43649234 B20 Non-detect able on last checkConti nue biktarvy (bictegrav ir, emtricitab ine & tenofovir alafenamid e) 50-200-25m g QDF/U with ID as planned. Hypertensive disorder 38 921282 I10 BP good since here.Sam nue amlodipine 5 mg qdMonitor BP and labs. Mixed anxi ety and depressive disorder 402624545 F41.8 Mood stable.Con tinue risperidon e 3 mg qhs, mirtazapin e 30 mg qhs, and clonazepam 1 mg qd.Monitor mood.Psych consult prn. Viral hepatitis C 864701 07 B18.2 Unclear hx.LFTs WNL.F/U as outpt. Acute chest pain 4038874 01 R07.89 Per cardio not ACS.Monito r sxs.F/U with cardio prn. Non-trauma tic rhabdomyolysis 292411877 M62.82 CPK trended down inpt.No need to monitor further. Moderate p ersistent asthma 241088874 J45.40 No SOB or hypoxia, but with junky cough as above.Cont inue Advair / two puffs BID, Flovent 2 puffs BID, and albuterol/ budesonide 2 puffs q 6 hrs prn.Monito r resp status. Polysubstance abuse 0912 63721 F19.10 Most often cocaine, but sometimes other things.Con tinue SUDs counseling while here and encourage abstinence and outpt f/u. Cough 17186815 R05.8 Sounds junky, but pt says it feels like tickle in throat. Maybe post nasal drip.Lungs clear, but still could be early PNA.Will start Robitussin DM 10 ml q 4 hrs prn and get CXR tomorrow.M onitor resp status. Insomnia 710978006 G47.0 9 Will try melatonin 5 mg qhs.Monito r sleep patterns. [id number] MIGUEL BROWN [facility] on [address] [place] [address] 07/05/2023 08:16:20 07/12/2023 16:01:31 Mixed anxiety and depressive disorder 698875060 F41.8 07/05: his mood is stablecont inue:clona zepam 1 mg dailyrispe ridone 3 mg daily at bedtime.Mi rtazapine 30 mg at bedtime daily.tu tonin 5 mg at bedtime daily Cough 38216719 R05.8 07/05: non productive upper airway congested coughThere is no SOB. LS are clearCXR completed; no active pulmonary infiltrate s or pleural effusions seen.Robit ussin DM 10 ml q 4 hrs prn- will scheduled for a few days, does not look like he requested prn.Monito r resp status. Polysubstance abuse 4452 76312 F19.10 Most often cocaine, but sometimes other things.Con tinue SUDs counseling while here and encourage abstinence and outpt f/u. [id number] MIGUEL BROWN [facility] on [address] [place] [address] 07/06/2023 09:35:29 07/12/2023 16:16:45 Mixed anxiety and depressive disorder 105343305 F41.8 continue:c lonazepam 1 mg dailyrispe ridone 3 mg daily at bedtime.Mi rtazapine 30 mg at bedtime daily.tu tonin 5 mg at bedtime dailyfollo w up with outpatient PCP. Cough 59765416 R05.8 CXR on 07/03/23 negative for any acute process.Ro bitussin DM 10 ml q 4 hrs prnfollow up with outpatient PCP. Acute dermatitis 4133847 6 L30.9 continueny statin cream BID as needed until clearedfol low up with outpatient PCP. Asthma 452736860 J45.90 9 Advair 230/21 two puffs BID,Floven t 2 puffs BID, andalbuter ol/budeson kentrell 2 puffs q 6 hrs prn.follow up with outpatient PCP. Human immunodeficiency virus infection 04764846 B20 Continue biktarvy (bictegrav ir, emtricitab ine & tenofovir alafenamid e) 50-200-25m g QD Hypertensive disorder 38 225448 I10 Continue amlodipine 5 mg qdfollow up outpatient Insomnia 216449292 G47.0 9 melatonin 5 mg at bedtime Migraine 04418679 G43.90 9 Continue home meds: Celebrex 200 mg bid gabapentin 600 mg tid ibuprofen 800 mg q8 hr prn ultram 50 daily prn clonazepam 1 mg daily risperdal 3 mg HS follow up with PCP Viral hepatitis C 293078 07 B18.2 follow labs outpatient follow up with outpatient pcp. [id number] Maryjane Glover NP [address] [address] 08/03/2023 12:58:35 08/08/2023 10:07:33 Human immunodeficiency virus infection 22499394 B20 ID consult prnbiktarv y (bictegrav ir, emtricitab ine & tenofovir alafenamid e) 50-200-25m g QD Asthenia 30816560 R53.1 PT/OT treat and evalwill monitor Essential hypertension 25556317 I10 amlodipine 5 mg dailywill monitor Mixed anxi ety and depressive disorder 693318899 F41.8 gabapentin 600 mg tidmirtaza pine 60 mg at hsrisperid one 3 mg at hsclonazep am 1 mg dailypsych prnwill monitor Gastroesop hageal reflux disease without esophagitis 897750290 K21.9 With recent workup in hosp and PEG placed.use G tube for feedings/m edswill monitor Chronic pain 79062232 G8 9.29 gabapentin 600 mg tidtramado l 50 mg prn dailymulti ple allergies notedwill monitor and consider if needed Polysubstance abuse 4452 38560 F19.10 Most often cocaine per hx with overdoses notedConti nue counseling while here and encourage abstinence and outpt f/u. Asthma 103360001 J45.90 9 advair 2 puff bidalbuter ol 2 puffs q 6 hours prn wheezingMo nitor resp. status for change Viral hepatitis C 628190 07 B18.2 fu with labscurren tly stable liver enzymesmon itor Moderate protein-calorie malnutrition (weight for age 60-74 percent of standard) 590215633 E44.0 now on PEG tube with feedings at 60cc/hrRef er to icu manager here.Seen by in hosp, unclear why he has dysphagia and difficulty eating with workup including EGD at [facility] eval and treat here to see if he can take po intakemoni tor Anemia 825969755 D64.9 ferrous gluconate 324 dailymonit or cbc weekly Adult fail ure to thrive syndrome 793272558 R62.7 g tube feedings and meds through g tube at 60cc/hrfai lure to thrive with supplement s in [facility] to eval and treat, consider reintroduc ing foods when ableweight s weeklymoni tor Insomnia 727090767 G47.0 9 benedryl 25 mg qhsmonitor [id number] Leilani Romeo MD [address] [address] 08/06/2023 16:28:34 08/08/2023 11:16:44 Adult failure to thrive syndrome 738674374 R62.7 With marked wt. loss over past few months.Con ommo Jevity 1.0 or 1.2 tanya/ml at 60 ml/hr.Stil l unable to swallow, unknown reason.Con tinmelissa CO[employer]UME RENTAL CLERK interventi ons to hopefully enable him to eat again.Cait tor wts and labs. Moderate protein-calorie malnutrition (weight for age 60-74 percent of standard) 974555278 E44.0 As above. Human immunodeficiency virus infection 04400473 B20 Last labs show zero viral load.Sam nue Biktarvy (bictegrav ir, emtricitab ine & tenofovir alafenamid e) 50-200-25m g QDF/U with ID as planned. Asthenia 47298190 R53.1 Very deconditio armen.Needs PT/OT for strengthen ing, balance, gait training, safety and function.C ontinue fall precaution s.Monitor for safety. Essential hypertension 18883282 I10 BP running low since here, should improve as nutritiona l status improves.C ontinue amlodipine 5 mg qdMonitor BP and labs. Gastroesop hageal reflux disease without esophagitis 598101049 K21.9 On no meds.I wonder if starting a PPI may help with throat pain?Monit or Chronic pain 34845480 G8 9.29 No c/o tonight.Co ntinue gabapentin 600 mg TID and tramadol 50 mg qd prnMonitor sxs. Asthma 934163327 J45.30 Asthma meds transcribe d incorrectl y on admission here.Was not put on Advair, but rather only albuterol/ budesonide prn.Will restart Advair 230/21 mcg two puffs BIDMonitor resp. status Anemia 114214204 D64.89 Not currently anemic.Con tinue ferrous gluconate 324 mg qdMonitor labs Mixed anxi ety and depressive disorder 661893079 F41.8 Mood stable.Con tinue risperidon e 3 mg qhs, mirtazapin e 60 mg qhs, and clonazepam 1 mg qd.Monitor mood.Psych consult prn. Viral hepatitis C 420298 07 B18.2 Unclear hx.LFTs WNL.F/U as outpt. Polysubstance abuse 4452 18813 F19.10 Most often cocaine, but sometimes other things.Con tinue counseling and encourage abstinence and outpt f/u. Dysphagia 59277246 R13.1 9 Unknown etiology.C ontinue G-tube feeding as above.Cons ider ENT consult. [id number] Maryjane Glover NP [address] [address] 08/16/2023 12:26:03 08/22/2023 11:29:11 Adult failure to thrive syndrome 287371047 R62.7 With marked wt. loss over past few months.Con tinueJevit y 1.5 tanya/ml at 60 ml/hr. icu manager following and will adjust as neededStil l unable to swallow, unknown reason.Con tinue [employer]ERK interventi ons to hopefully enable him to eat again.Cait tor wts and labs. Dysphagia 26592190 R13.1 9 Unknown etiology.C ontinue G-tube feeding as above.Cons ider ENT consult. Moderate protein-calorie malnutrition (weight for age 60-74 percent of standard) 125617855 E44.0 As above. Human immunodeficiency virus infection 35423948 B20 Last labs show zero viral load.Sam nueBiktarv y (bictegrav ir, emtricitab ine & tenofovir alafenamid e) 50-200-25m g QDF/U with ID as planned. Asthenia 87068307 R53.1 Very deconditio armen.Needs PT/OT for strengthen ing, balance, gait training, safety and function.C ontinue fall precaution s.Monitor for safety. Essential hypertension 83351689 I10 BP running low since here, should improve as nutritiona l status improves.a mlodipine 5 mg qdMonitor BP and labs. Gastroesop hageal reflux disease without esophagitis 541203778 K21.9 no meds.Monit or Chronic pain 67097803 G8 9.29 has mild headache todayConti nuegabapen tin 600 mg TIDtramado l 50 mg qd prnMonitor sxs. Asthma 605523404 J45.30 Asthma meds transcribe d incorrectl y on admission here.albut maddi/budes onide prn.Advair 230/21 mcg two puffs BIDMonitor resp. status Anemia 483867957 D64.89 Not currently anemic.juan carlos scales order cbc and bmp weekly [id number] gluconate 324 mg qdMonitor labs Mixed anxi ety and depressive disorder 648122194 F41.8 Mood stable.ris peridone 3 mg qhsmirtaza pine 60 mg qhs,clonaz epam 1 mg qd.Monitor mood.Psych consult prn. Viral hepatitis C 275257 07 B18.2 Unclear hx.LFTs WNL.F/U as outpt. Polysubstance abuse 4452 28389 F19.10 Most often cocaine, but sometimes other things.Con tinue counseling and encourage abstinence and outpt f/u. [id number] Maryjane Glover NP [address] [address] 08/22/2023 11:06:38 08/28/2023 14:23:57 Adult failure to thrive syndrome 245325624 R62.7 With marked wt. loss over past few months.Mehrdad Dumont y 1.2 tanya/ml at 67ml/hr. icu manager following and will adjust as neededStil l unable to swallow, unknown reason.Mehrdad barr [employer]ERK interventi ons to hopefully enable him to eat again.Cait tor wts and labs.08/22 icu manager to assess if bolus feedings can be attempted for homefamily /pt needs g tube care/teach ing for ? dc homemonito r Asthenia 66664361 R53.1 Very deconditio armen, improving every week with therapyNee ds PT/OT for strengthen ing, balance, gait training, safety and function.C ontinue fall precaution s.Monitor for safety. Dysphagia 54967776 R13.1 9 Unknown etiology.C ontinue G-tube feeding as above.Cons ider ENT consult. Anemia 624082120 D64.89 Not currently anemic.juan carlos scales order cbc and bmp weekly [id number] gluconate 324 mg qdMonitor labs Moderate protein-calorie malnutrition (weight for age 60-74 percent of standard) 621786102 E44.0 As above. Human immunodeficiency virus infection 50918452 B20 ContinueBi ktarvy (bictegrav ir, emtricitab ine & tenofovir alafenamid e) 50-200-25m g QDF/U with ID as planned. Essential hypertension 18741370 I10 BP now improving as nutritiona l status improves.1 10s-130s /60scontam lodipine 5 mg qdMonitor BP and labs. Gastroesop hageal reflux disease without esophagitis 946069071 K21.9 no meds.Monit or Chronic pain 59939001 G8 9.29 headache resolvedCo ntinuegaba pentin 600 mg TID, no pain todaytrama dol 50 mg qd prnMonitor sxs. Asthma 369564470 J45.30 Asthma meds transcribe d incorrectl y on admission here.albut maddi/budes onide prn.Advair 230/21 mcg two puffs BIDMonitor resp. status Mixed anxi ety and depressive disorder 828131109 F41.8 Mood stable and ding wellrisper idone 3 mg qhsmirtaza pine 60 mg qhs,clonaz epam 1 mg qd.Monitor mood.Psych consult prn. [id number] Maryjane Glover NP [address] [place] [address] 08/29/2023 08:14:48 08/30/2023 19:42:34 Adult failure to thrive syndrome 304577197 R62.7 With marked wt. loss over past few months.Con tinueJevit y 1.2 tanya/ml at 67ml/hr. icu manager following and will adjust as neededStil l unable to swallow, unknown reason.per speech eval: no eating or drinkingMo nitor wts and labs.08/22 icu manager to assess if bolus feedings can be attempted for homefamily /pt needs g tube care/teach ing for ? dc homemonito r110/30 awaiting icu manager to calculate gtube feedings and start Asthenia 69672613 R53.1 Very deconditio armen, improving every week with therapyNee ds PT/OT for strengthen ing, balance, gait training, safety and function.C ontinue fall precaution s.Monitor for safety. Dysphagia 42024159 R13.1 9 Unknown etiology.C ontinue G-tube feeding as above.Cons ider ENT consult. Anemia 729980462 D64.89 Not currently anemic.juan carlos l order cbc and bmp prn, labs stableferr ous gluconate 324 mg qdMonitor labs Moderate protein-calorie malnutrition (weight for age 60-74 percent of standard) 153833927 E44.0 As above. Human immunodeficiency virus infection 48285425 B20 ContinueBi ktarvy (bictegrav ir, emtricitab ine & tenofovir alafenamid e) 50-200-25m g QDF/U with ID as planned. Essential hypertension 42585722 I10 BP now improving as nutritiona l status improves.1 conta mlodipine 5 mg qdMonitor BP and labs. Gastroesop hageal reflux disease without esophagitis 432607600 K21.9 no meds.Monit or Chronic pain 25552058 G8 9.29 headache resolvedCo ntinuegaba pentin 600 mg TID, no pain todaytrama dol 50 mg qd prnMonitor sxs. Asthma 536244633 J45.30 Asthma meds transcribe d incorrectl y on admission here.albut maddi/budes onide prn.Advair 230/21 mcg two puffs BIDMonitor resp. status Mixed anxi ety and depressive disorder 503573360 F41.8 Mood stable and ding wellrisper idone 3 mg qhsmirtaza pine 60 mg qhs,clonaz epam 1 mg qd.Monitor mood.Psych consult prn. Neck pain 34490415 M54.2 incidental neck pain, states slept on it wrongnsg giving tyl, tramadol and gabapentin reposition neckmonito r for relief [id number] Diliajenny Hutchinson [address] [address] 09/07/2023 05:15:43 09/13/2023 10:39:11 Adult failure to thrive syndrome 963916779 R62.7 With marked wt. loss over past few months.Con Tim y 1.2 tanya/ml at 67ml/hr. icu manager following and will adjust as neededStil l unable to swallow, unknown reason.Mehrdad barr COSTUME RENTAL CLERK interventi ons to hopefully enable him to eat again.Cait tor wts and labs.recei deborah education on gt feeds, SW working on VNA set up for [facility] GT site daily with NS and dry. apply 2x2 to sitemonito r Asthenia 18602218 R53.1 Very deconditio armen, improving every week with therapyNee ds PT/OT for strengthen ing, balance, gait training, safety and function.C ontinue fall precaution s.Monitor for safety. Dysphagia 07037948 R13.1 9 Unknown etiology.C ontinue G-tube feeding as above.Cons ider ENT consult. Anemia 254823933 D64.89 Not currently anemic.juan carlos scales order cbc and bmp weekly z2mubzbam gluconate 324 mg qdMonitor labs Moderate protein-calorie malnutrition (weight for age 60-74 percent of standard) 395421761 E44.0 As above. Human immunodeficiency virus infection 94503128 B20 ContinueBi ktarvy (bictegrav ir, emtricitab ine & tenofovir alafenamid e) 50-200-25m g QDF/U with ID as planned. Essential hypertension 40486071 I10 BP now improving as nutritiona l status improves.1 10s-130s /60scontam lodipine 5 mg qdMonitor BP and labs. Gastroesop hageal reflux disease without esophagitis 733406576 K21.9 no meds.Monit or Chronic pain 29113418 G8 9.29 headache resolvedCo ntinuegaba pentin 600 mg TID, no pain todaytrama dol 50 mg qd prnMonitor sxs. Asthma 958953634 J45.30 Asthma meds transcribe d incorrectl y on admission here.albut maddi/budes onide prn.Advair 230/21 mcg two puffs BIDMonitor resp. status Mixed anxi ety and depressive disorder 319430518 F41.8 Mood stable and ding wellrisper idone 3 mg qhsmirtaza pine 60 mg qhs,clonaz epam 1 mg qd.Monitor mood.Psych consult prn. [id number] [facility] [address] 09/12/2023 18:08:08 09/14/2023 11:17:17 Adult failure to thrive syndrome 395019287 R62.7 With marked wt. loss over past few months.Con tinueosmol ite 1.2 tanya/ml 410 cc qid bolus tube feedings Still unable to swallow, unknown reason, however eating and drinking in room with asp risk, will do FEES test on Sundaywill order cxr tomorrow to rule out pna with riskMonito r wts and labs. (needs weight foster)receiv ed education on gt feeds, SW working on VNA set up for [place], scripts givenclean se GT site daily with NS and dry. apply 2x2 to sitemonito r Asthenia 53282807 R53.1 Very deconditio armen, improving every week with therapyNee ds PT/OT for strengthen ing, balance, gait training, safety and function.C ontinue fall precaution s.Monitor for safety. Dysphagia 34917180 R13.1 9 Unknown etiology.C ontinue G-tube bolus feeding as above.FEES test on Sundayneed s cxr to rule out pna from foods and drinks in room despite recommenda tionConsid er ENT consult. Moderate protein-calorie malnutrition (weight for age 60-74 percent of standard) 605451516 E44.0 As above. Human immunodeficiency virus infection 69910508 B20 ContinueBi ktarvy (bictegrav ir, emtricitab ine & tenofovir alafenamid e) 50-200-25m g QDF/U with ID as planned. Essential hypertension 95233631 I10 BP now improving as nutritiona l status improves.1 10s-130s /60scontam lodipine 5 mg qdMonitor BP and labs. Asthma 699767168 J45.30 no wheezing noted on exam, stablealbu terol/bude sonide prn.Advair 230/21 mcg two puffs BIDMonitor resp. status Mixed anxi ety and depressive disorder 392734448 F41.8 Mood stable and ding wellrisper idone 3 mg qhsmirtaza pine 60 mg qhs,clonaz epam 1 mg qd.Monitor mood.Psych consult prn. [id number] MAURO DUFFY [facility] [address] 09/18/2023 08:57:08 09/25/2023 10:49:09 Adult failure to thrive syndrome 000500272 R62.7 With marked wt. loss over past few months due to difficulty swallowing .G tube placed 07/30/23 at [facility].Contin ue osmolite 1.2 tanya/ml 410 cc qid bolus tube feedings upon d/c home.Seen by COSTUME RENTAL CLERK - now on puree diet with thin liquids - may continue at homeContin ue to monitor weights and intake at home Asthenia 23525380 R53.1 Improved, meeting rehab goals for d/c home today with support of services.C ontinue fall precaution s.Monitor for safety as outpt. Dysphagia 31040582 R13.1 9 Unknown etiology.S ee above.[facility] bolus [facility]ingsNo w on pureed diet, thin liquidsMon itor intake, s/s aspiration as outpt. Moderate protein-calorie malnutrition (weight for age 60-74 percent of standard) 831030381 E44.0 As above. Human immunodeficiency virus infection 45023462 B20 ContinueBi ktarvy (bictegrav ir, emtricitab ine & tenofovir alafenamid e) 50-200-25m g QDF/U with ID as planned. Essential hypertension 64572958 I10 continue amlodipine 5 mg qdMonitor BP as outpt. Asthma 643254371 J45.30 no wheezing noted on exam, stablecont inue Advair 230/21 mcg two puffs BID and albuterol/ budesonide prn.Monito r resp. status as outpt. Mixed anxi ety and depressive disorder 481901815 F41.8 Mood stable and doing wellContin ue home medsrisper idone 3 mg qhsmirtaza pine 60 mg qhsclonaze david 1 mg qdMonitor mood, behaviors as outpt. Chronic pain 42277100 G8 9.29 continue gabapentin 600 mg tid, ultram 50 mg qd prnmonitor asoutpt. Anemia 502485267 D64.89 remains on daily FeMonitor CBC,s/s active bleeding Health Concerns Section Related Observation LastModified by Organization Detai ls LastModified Time None Recorded Concern Status LastModified by Organization Details LastModified Time None Recorded Advance Directives Directive Y: Payers Encounter Date Sequence Insurance Name Policy Number Policy Perry Covered Member ID Perry Member ID Guarantor Name 08/22/2023 1 [facility] CARE [employer] - DOS ON OR AFTER 2022 - [place]IC[place]AGE [place] (MEDICARE REPLACEMENT/ADV ANTAGE - PPO) [facility] [id number] [facility] 08/29/2023 1 [facility] DOS ON OR AFTER 2022 - [place]ACEMENT/ADV ANTAGE - PPO) Benjamin Fall [id number] [facility] 09/07/2023 [facility] - DOS ON OR AFTER 2022 - [place]/ADV ANTAGE - PPO) Benjamin Fall [id number] Benjamin Fall 09/12/2023 1 [facility] C[facility] [employer] - DOS ON OR AFTER 2022 - [place] ([place]ARE REPLACEMENT/ADV ANTAGE - PPO) [facility] [id number] [facility] 09/18/2023 1 [facility] - DOS ON OR AFTER 2022 - [place] ([place] REPLACEMENT/ADV ANTAGE - PPO) [facility] [id number] [facility] Notes Date Note Type Note Provider [...] other concerns. Note: He was admitted to [facility] ED for similar concerns earlier this month [...] code signed 01/17/23 Maryjane Glover NP [address] [facility], [address], [place], [address], [facility] [employer] 08/22/2023 11:24:08 08/29/2023 text/html Patient seen for an 30 routine rounding visit. Past medical history significant for HIV, history of hep C, depression, asthma, history lung abscess 2020, fall, several overdoses noted in hx. dysphagia seen for difficulty swallowing ultimately diagnosed with failure to thrive and PEG tube placed. Benjamin was admitted to [facility] for difficulty swallowing and underwent EGD [...] from hospital to rehab. While here at [facility]: Pt is 107.6 lbs and this is [...] disconnect his feedings without difficulty here. Awaiting icu manager to calculate bolus feedings and start them [...] code signed 01/17/23 Maryjane Glover NP [address] [facility] [facility], [address], [place], [address], [facility] 08/29/2023 13:39:07 09/07/2023 text/html Patient seen for [...] other concerns. Note: He was admitted to [facility] for similar concerns earlier this month [...] Full code signed 01/17/23 Dilia lloyd [address] [facility], [address], [place], [address], [facility] [employer] 09/07/2023 13:21:25 09/12/2023 text/html Patient seen for [...] Sunday am.MOLST: Full code signed 01/17/23 Maryjane Glover NP [address] [facility], [address], [place], [address], [email or web address] 09/12/2023 19:33:00 09/18/2023 text/html Benjamin is seen t heidy for discharge. He is going home today with support of services. He is a 58 yo man admitted to [facility] 08/02/23 from [facility] for continued care and rehab after a hospitalization related to malnutrition and FTT.He presented to [facility] 07/27 reporting throat pain and the inability to swallow.Swallowing issues problematic prior to this presentation, had EGD with Dr. Dodson 07/17, results c/w mild candidiasis normal stomach and duodenum. He was also seen by COSTUME RENTAL CLERK, diet changed to NND1 and nectar thick liquid. Due to ongoing swallowing issues at home, he returned to [facility] ER.A g-tube was placed on 07/30, cause of dysphagia unclear. Kept NPO, and sent here for rehab. While here, Benjamin has done well.Worked with PT/OT, meeting goals for d/c home.Also worked with COSTUME RENTAL CLERK and icu manager - now tolerating puree diet with thin [...] also, possibly inadvertently). MAURO DUFFY NP [address] [facility], [address], [place], [address], [employer] 09/18/2023 09:47:21
--- OUTSIDE RECORDS SUMMARY | 2024-09-16 09:21 | XMS_ITS | Patient Health Record ---
Demographics Address [address] [place] [address] Preferred Language en Marital Status Unknown Temple Affiliation Unknown Race White Ethnic Group Not or Lati no Author Organization [facility] Address [address] [place] [address] Care Team Providers Care Flash Drier Operator Name Role Phone Terese Rivera Primary Care Provider Pepe Dangelo Unavailable [phone] ALLERGIES Allergen (clinical drug ingredient) Drug/Non Drug [...] stool (578.1) Active confirmed Blood in stool (760824542) Problem Constipation (564.00) Active confirmed Constipation (11730475) Problem GERD (gastroesophage al reflux disease) (530.81) Active confirmed Gastroesophagea l reflux disease (416608405) Problem Dysphagia (R13.10) Active confirmed Dysphagia (43368690) Problem Anorexia (R63.0) Active confirmed Anorexia (81020127) Problem Unspecified protein-calorie malnutrition (E46) Active confirmed Protein calorie malnutrition (703876328) Encounters Encounter Location Date Provider Diagnosis [facility] [address] [place] [address] 12/14/2023 Pepe Stephenson [facility] [address] [place] [address] 12/14/2023 Pepe Stephenson PLAN OF TREATMENT Future Test Test Name Order Date UPPER GI ENDOSCOPY 02/26/2013 COLONOSCOPY 02/26/2013 Next Appt Details Provider Name:Pepe Stephenson , 10/09/2024 09:40:00 AM, [address], [address], [place], [address], Insurance Providers Payer Name Payer Address Payer Phone Subscriber Number Group Number Insured Name Patient Relationship to Insured Coverage Start Date Coverage End Date [facility] [address] Attn Claims HOSEA Solorzano [id number] [facility] Self - patient is the insured MEDICAID OF [facility] [address] [place] [address] [id number] [facility] Self - patient is the insured MEDICAL (GENERAL) HISTORY Medical History History ICD Code seizures kidney stones Denies MD,DM,CVA,renal disease HIV infection since age 23-[address] e[address]-reports neg. hepatitis serologies GERD Mild asthma-Albuterol prn Anxiety Fibromyalgia Surgical History Surgery Date(Month/Year) hemorrhoidectomy 2004 Eye surgery as a child
[2024-09-16 10:11] LABS: Calcium 9.7 mg/dL (8.4-10.2)
[2024-09-19 21:23] LABS: Adrenocorticotropic Hormone 9 pg/mL (6-50)
== END 2024-09-16 09:00 | disposition home or self-care (01) ==
LOC: HO.CT 08:59
PROVIDERS: Absent Provider Student in an Organized Health Care Education/Training Program; PCP Student in an Organized Health Care Education/Training Program; Visit Provider Nurse Practitioner Family
DX: R91.1 Solitary pulmonary nodule (principal); E27.8 Other specified disorders of adrenal gland; M81.0 Age-related osteoporosis without current pathological fracture
CPT/HCPCS: 36415; 71250; 80299; 82024; 82310

== ENCOUNTER → 2024-09-16 09:01 | Outpatient (BNV) | payer OTHER, SELFPAY | PROVIDERS: Absent Provider Student in an Organized Health Care Education/Training Program; PCP Student in an Organized Health Care Education/Training Program; Visit Provider Radiology Diagnostic Radiology | DX: R91.1 Solitary pulmonary nodule (principal) | CPT/HCPCS: 71250 ==

== ENCOUNTER 2024-09-24 09:49 | Outpatient (REF) | payer OTHER, SELFPAY ==
--- NOTE | ~2024-09-24 | XR_ITS ---
CLINICAL HISTORY: R29.890 - Loss of height 4 views thoracic spine Comparison: CT/SR - CT CHEST WO IV CON - 09/16/24 09:22 EST Findings: Minimal convex right midthoracic curvature. Lateral view demonstrates anatomic alignment. Multilevel central height loss is seen along both the superior and inferior endplates of numerous vertebral bodies within the midthoracic spine, unchanged compared to the patient's recent chest CT exams. Bones are osteopenic. IMPRESSION: Unchanged multilevel central height loss throughout the midthoracic vertebral bodies. This document has been electronically signed by: Angel Larry MD on 09/24/2024 20:56:37
--- NOTE | ~2024-09-24 | XR_ITS ---
EXAMINATION: XR LUMBAR SPINE 2-3 VIEWS HISTORY: R29.890 - Loss of height COMPARISON: Comparison is made with the prior examination dated 08/06/2024. FINDINGS: AP, lateral, and coned down views of the lumbar spine are submitted. Osseous mineralization is normal. Five nonrib-bearing lumbar vertebral bodies are identified, maintaining normal height and alignment without evidence of fracture or spondylolisthesis. The intervertebral disc spaces are preserved. The posterior elements are intact. The visualized paraspinal soft tissues are unremarkable. XR/XR lumbar spine 2-3V IMPRESSION: Unremarkable examination of the lumbar spine. Electronically signed by: Pepe Littlejohn MD 10/02/2024 11:53 AM EST
== END 2024-09-24 09:50 | disposition home or self-care (01) ==
LOC: HO.XRAY 09:49
PROVIDERS: PCP Student in an Organized Health Care Education/Training Program; Visit Provider Student in an Organized Health Care Education/Training Program
DX: R29.890 Loss of height (principal); M81.0 Age-related osteoporosis without current pathological fracture
CPT/HCPCS: 72070; 72100

== ENCOUNTER → 2024-09-24 09:57 | Outpatient (BNV) | payer OTHER, SELFPAY | PROVIDERS: PCP Student in an Organized Health Care Education/Training Program; Visit Provider Radiology Diagnostic Radiology | DX: R29.890 Loss of height (principal) | CPT/HCPCS: 72070; 72100 ==

== ENCOUNTER 2024-10-01 07:51 | Outpatient (REF) | payer OTHER, SELFPAY ==
--- OUTSIDE RECORDS SUMMARY | 2024-10-01 07:54 | XMS_ITS | Data Portability ---
Author Organization [facility] Address [address] [place] [address] Care Team Providers Care Overnight Associate Name Role Phone HIM [facility] OTHER [facility] OTHER Assessment No assessment recorded. Plan [...] Not available Not available Not available 07/08/2024 [id number] RxNorm Not Available [facility] - production 4 [...] SNOMED-CT Code Diagnosis ICD10 Code Diagnosis Note [id number] ERLINDA HOLLIDAY MD Main - [facility] [address] [place] [address] 03/06/2024 16:50:44 03/07/2024 17:38:50 Lethargy 216159276 R53.83 Evaluation in the field was performed by my manager sign colleague. As noted above, I provided real-time [...] He is afebrile. Per discussion with the manager sign, the patient looked lethargic, walked with an [...] n. The patient was transferre d to [facility] for further evaluation and treatment. His PCP was informed of the transfer to the ED. Primary care, consider__ _ Dispositio n:[facility] Health Concerns Section Related Observation LastModified by Organization Jazzy ls LastModified Time None Recorded Concern Status LastModified by Organization Details LastModified Time None Recorded Advance Directives Directive None Recorded Payers Encounter Date Sequence Insurance Name Policy Number Policy Perry Covered Member ID Perry Member ID Guarantor Name 03/06/2024 1 [facility] - DOS ON OR AFTER 2022 - DUAL ELIGIBLE - CARE HOME OPTIONS AND ONE CARE (MEDICARE REPLACEMENT/ADV ANTAGE - HMO) Benjamin Juan David [id number] [facility] Juan David Notes Date Note [...] ................. ................. ................. ................. ................. ................. ..... Major Case Detective Note From Francisco Ley: Dispatched to above address for headache sore throat. On arrival patient met SC8 at the door. Initially patient denied calling for medical help or having any symptoms. HI8 confirmed patient name and address, after this [...] focus on current situation, poor affect, lethargic. [facility] contacted, spoke with Dr. Holliday, advised of patient complaints and exam findings. [facility] agreed further evaluation in the ER is necessary for this patient. Patient agreed to this. Patients neighbor who assists patient arrived to check on him. She reports this doesn't seem like his normal mentation but cannot be sure. 911 called. [facility] responded. Verbal report given to [facility] Major Case Detective. [facility] manager sign took over patient care. Tx8 clear. EOR. ................. ................. ................. ................. ................. ................. ................. ................. ..... Disposition: Shahzad HOLLIDAY MD [address], [place], [address], [place] 03/06/2024 18:02:19
--- OUTSIDE RECORDS SUMMARY | 2024-10-01 07:54 | XMS_ITS | Data Portability ---
Author Organization LYNN WHITE MD [facility], Main Office Address [address] [place] [address] Assessment No assessment recorded. Plan of Treatment Reminders Order Date Submit Date Provider Last Modified By Organization Details Last Modified Time Details Appointments RESEARCH FOLLOW UP 2024 11:30A Wilmer Levin MD Not available Not available Not available Lab None recorded . Referral None recorded . Procedures None recorded . Surgeries None recorded . Imaging electroc ardiogra m 2023 024 [email or web address] Main Office, [address] [place] [address], [address], 07/15/2024 15:47:38 Medication Orders fluconaz ole 10 mg/mL oral suspensi on 2023 024 [facility]armacy #[id number], [address] [place], [address], 03/16/2024 22:34:10 Serostim 6 mg subcutan eous solution 2023 024 [email or web address] Not available 03/14/2024 15:37:41 fluconaz ole 10 mg/mL oral suspensi on 2023 024 [facility]arm[facility] #[id number], [address] [place], [address], 04/18/2024 10:19:05 Serostim 6 mg subcutan eous solution 2023 024 [facility] [address] [place], [address], 04/18/2024 14:20:41 voricona zole 200 mg/5 mL (40 mg/mL) oral suspensi on 2023 024 [facility] #[id number], [address] [place], [address], 05/20/2024 11:43:08 Serostim 6 mg subcutan eous solution [address], [address], 05/20/2024 11:29:08 megestro l 625 mg/5 mL (125 mg/mL) oral suspensi on 2023 024 [facility] #[id number], [address] [place], [address], 05/20/2024 11:30:41 Patient TargetsNo targets recorded. Patient InstructionsNo instructions recorded. Reason for Referral None Reported. Results Created Date Observation Date Name Description Value Unit Range Abnormal Flag Note LastModifiedBy Organization Detail LastModifiedTime 04/18/20 24 04/18/2024 MISCE LLANE OUS CULTU RE performing lab Perfor [facility] [address] [place] [address] Medic al Dire jj wu MD Not Available [facility] [address] [place] [address], [address], 04/28/2024 10:31:16 04/18/20 24 04/21/2024 MISCE LLANE OUS CULTU RE miscellaneou s culture CANDID A GLABRA TA Not Available [facility] [address] [place] [address], [address], 04/28/2024 10:31:16 04/18/20 24 04/18/2024 FUNGU S CULTU RE,OT HER performing lab Perfor angel [facility] [place] [address] [place] [address] Medic al Direc jj wu MD Not Available [facility] [address] [place], [address], 04/28/2024 10:31:19 04/18/20 24 04/22/2024 FUNGU S CULTU RE,OT HER fungus culture,othe r CANDID A GLABRA TA Not Available [facility] [address] [place], [address], 04/28/2024 10:31:19 04/08/20 24 11/12/2023 elect rocar diogr am No observ ation record ed. [email or web address] Not Available 2023 15:34:46 06/18/20 24 06/04/2024 US, abdom en, compl ete No observ ation record ed. [email or web address] [facility], [place], [address], 06/18/2024 11:12:25 07/15/20 24 07/15/2024 elect rocar diogr am No observ ation record ed. [email or web address] Main Office [address] [place], [address], 07/15/2024 17:12:05 07/17/20 elect rocar diogr am No observ ation record ed. [email or web address] Main Office [address] [place], [address], 07/17/2024 14:15:04 Result Notes None recorded. Problems Name Problem SNOMED Code Status Onset Date Resolution Date Notes Provider Name and Address Organization Details Recorded Time Asthma 548279457 Active 2006 Asthma; snomeddesc ription: Asthma; Report Immunity to Registry: Yes; Asthma; Report Immunity to Registry: Yes; ReasonDate : 10/13/2019 ; ; Start Date : 10/13/2019 Asthma; snomeddesc ription: Asthma; Report Immunity to Registry: Yes; [facility] Available [facility] 4 06:58:53 Male hypogonad ism 90012192 Active 2012 Male hypogonadi sm; snomeddesc ription: Male hypogonadi sm; Report Immunity to Registry: Yes; Not Available [facility] 4 06:58:53 Diarrhea 20848755 Active 2006 Diarrhea; snomeddesc ription: Diarrhea; Report Immunity to Registry: Yes; Diarrhea, unspecifie d; snomeddesc ription: Diarrhea; Report Immunity to Registry: Yes; Not Available [facility] 4 06:58:53 Substance abuse 54928470 Active 2006 Substance abuse; snomeddesc ription: Substance abuse; Report Immunity to Registry: Yes; Notes: opiate/suad jolene/benzo ; Not Available [facility] 4 06:58:53 Human immunodef iciency virus infection 63308958 Active 1991 Human immunodefi ciency virus [HIV] disease; snomeddesc ription: Human immunodefi ciency virus infection; Report Immunity to Registry: Yes; Human immunodefi ciency virus infection; snomeddesc ription: Human immunodefi ciency virus infection; Report Immunity to Registry: Yes; Not Available [facility] 4 06:58:53 Steatosis of liver 435187627 Active 2006 Steatosis of liver; snomeddesc ription: Steatosis of liver; Report Immunity to Registry: Yes; Notes: u/s 2021; Fatty (change of) liver, not elsewhere classified ; snomeddesc ription: Steatosis of liver; Report Immunity to Registry: Yes; Notes: u/s 2021; Not Available [facility] 4 06:58:53 Herpesvir us infection 84748870 Active 2009 Herpesvira l infection, unspecifie d; snomeddesc ription: Herpes simplex; Report Immunity to Registry: Yes; Notes: HSV 1 pos serology; HSV 2 neg serology; Not Available [facility] 4 06:58:53 Fibromyos itis 56027487 Active 2006 Myalgia and myositis, unspecifie d; snomeddesc ription: Fibromyalg ia; Report Immunity to Registry: Yes; Notes: Chronic pain multiple/c hronic back pain; Not Available [facility] 4 06:58:53 Herpes simplex 33854091 Active 2009 Herpes simplex; snomeddesc ription: Herpes simplex; Report Immunity to Registry: Yes; Notes: HSV 1 pos serology; HSV 2 neg serology; Not Available [facility] 4 06:58:54 Kidney stone 46647428 Active 2001 Calculus of kidney; snomeddesc ription: Kidney stone; Report Immunity to Registry: Yes; Kidney stone; snomeddesc ription: Kidney stone; Report Immunity to Registry: Yes; Not Available [facility] 4 06:58:54 History of calculus of kidney 505249482 Active 2001 History of calculus of kidney; snomeddesc ription: History of calculus of kidney; Report Immunity to Registry: Yes; Not Available [facility] 4 06:58:54 Type B viral hepatitis 33512884 Active 2006 Type B viral hepatitis; snomeddesc ription: Type B viral hepatitis; Report Immunity to Registry: Yes; Notes: core ab pos; s ag neg; s ab neg HBV vL nondetecte d 2016; 2017; Not Available [facility] 4 06:58:54 Hyperplas ia of prostate 538708048 Active 2014 Hyperplasi a of prostate, unspecifie d, without urinary obstructio n and other lower urinary symptoms (LUTS); snomeddesc ription: Hyperplasi a of prostate; Report Immunity to Registry: Yes; Hyperplas ia of prostate; snomeddesc ription: Hyperplasi a of prostate; Report Immunity to Registry: Yes; Not Available [facility] 4 06:58:54 Anxiety 12786621 Active 1996 Anxiety; snomeddesc ription: Anxiety; Report Immunity to Registry: Yes; Not Available [facility] 4 06:58:54 Testicula r hypofunct ion 102415353 Active 2012 Other testicular hypofuncti on; snomeddesc ription: Male hypogonadi sm; Report Immunity to Registry: Yes; Not Available [facility] 4 06:58:54 Seasonal allergic rhinitis 186525480 Active 2012 Other seasonal allergic rhinitis; snomeddesc ription: Seasonal allergy; Report Immunity to Registry: Yes; Notes: hx nasal congestion ; Not Available [facility] 4 06:58:54 Onychomyc osis due to dermatoph yte 682866309 Active 2017 Tinea unguium; snomeddesc ription: Onychomyco sis; Report Immunity to Registry: Yes; Notes: feet digits; Not Available [facility] 4 06:58:55 Sleep apnea 46795973 Active 1999 Sleep apnea; snomeddesc ription: Sleep apnea; Report Immunity to Registry: Yes; Unspecifi ed sleep apnea; snomeddesc ription: Sleep apnea; Report Immunity to Registry: Yes; Not Available [facility] 4 06:58:55 Psychoact marj substance abuse 07165046 Active 2006 Other psychoacti ve substance abuse, uncomplica lucho; snomeddesc ription: Substance abuse; Report Immunity to Registry: Yes; Notes: opiate/suad jolene/benzo ; Not Available [facility] 4 06:58:55 Viral hepatitis B without hepatic coma 329887727 Active 2006 Unspecifie d viral hepatitis B without hepatic coma; snomeddesc ription: Type B viral hepatitis; Report Immunity to Registry: Yes; Notes: core ab pos; s ag neg; s ab neg HBV vL nondetecte d 2016; 2017; Not Available [facility] 4 06:58:55 Blood chemistry outside reference range 539435984 Active 2012 Other specified abnormal findings of blood chemistry; snomeddesc ription: Decreased testostero ne level; Report Immunity to Registry: Yes; Notes: hypogoandi sm; Not Available [facility] 4 06:58:55 Arthritis 9191249 Active 1998 Arthritis; snomeddesc ription: Arthritis; Report Immunity to Registry: Yes; Notes: Osteoatrth ris multiple; Not Available [facility] 4 06:58:55 History of urinary stone 812462732 Active 2001 Personal history of urinary calculi; snomeddesc ription: History of calculus of kidney; Report Immunity to Registry: Yes; Not Available [facility] 4 06:58:56 Fibromyal mika 347519505 Active 2006 Fibromyalg ia; snomeddesc ription: Fibromyalg ia; Report Immunity to Registry: Yes; Notes: Chronic pain multiple/c hronic back pain; Not Available [facility] 4 06:58:56 Lyme disease 67893784 Active 2017 Lyme disease; Report Immunity to Registry: Yes; Notes: tx cefuroxime x14 d (hx all Doxy); Not Available [facility] 4 06:58:56 Headache 29405477 Active 2008 Headache; snomeddesc ription: Headache; Report Immunity to Registry: Yes; Notes: migraine; Headache; snomeddesc ription: Headache; Report Immunity to Registry: Yes; Notes: migraine; Not Available [facility] 4 06:58:56 Hypertens marj disorder 78560217 Active 2017 Hypertensi ve disorder; snomeddesc ription: Hypertensi ve disorder; Report Immunity to Registry: Yes; Not Available [facility] 4 06:58:56 Arthropat hy 267415730 Active 1998 Arthropath y, unspecifie d, site unspecifie d; snomeddesc ription: Arthritis; Report Immunity to Registry: Yes; Notes: Osteoatrth ris multiple; Not Available [facility] 4 06:58:56 Essential hypertens ion 41728176 Active 2017 Essential (primary) hypertensi on; snomeddesc ription: Hypertensi ve disorder; Report Immunity to Registry: Yes; Not Available [facility] 4 06:58:57 Testoster one level below reference range 449072174 Active 2012 Decreased testostero ne level; snomeddesc ription: Decreased testostero ne level; Report Immunity to Registry: Yes; Notes: hypogoandi sm; Not Available [facility] 4 06:58:57 Insomnia 753808090 Active 1996 Insomnia; Report Immunity to Registry: Yes; Not Available [facility] 4 06:58:57 Anxiety state 609592190 Active 1996 Anxiety state, unspecifie d; snomeddesc ription: Anxiety; Report Immunity to Registry: Yes; Not Available [facility] 4 06:58:57 Onychomyc osis 797462080 Active 2017 Onychomyco sis; snomeddesc ription: Onychomyco sis; Report Immunity to Registry: Yes; Notes: feet digits; Not Available [facility] 4 06:58:57 Chronic hepatitis C 235445731 Active 2006 Chronic hepatitis C without mention [...] neg 2015;2017; 12/2021 F2 ; Not Available [facility] 4 06:58:57 Depressiv e disorder 74750072 Active 1996 Depressive disorder, not elsewhere classified ; snomeddesc ription: Depressive disorder; Report Immunity to Registry: Yes; Depressiv e disorder; snomeddesc ription: Depressive disorder; Report Immunity to Registry: Yes; Not Available [facility] 4 06:58:58 Seasonal allergy 697756434 Active 2012 Seasonal allergy; snomeddesc ription: Seasonal allergy; Report Immunity to Registry: Yes; Notes: hx nasal congestion ; Not Available [facility] 4 06:58:58 Loss of appetite 49926201 Active 2012 Anorexia; snomeddesc ription: Loss of appetite; Report Immunity to Registry: Yes; Loss of appetite; snomeddesc ription: Loss of appetite; Report Immunity to Registry: Yes; Not Available [facility] 4 06:58:58 Seizure 08931354 Active 2000 Seizure; snomeddesc ription: Seizure; Report [...] Report Immunity to Registry: Yes; Not Available [facility] 4 06:58:58 Problem Notes None recorded. Procedures Surgical History None recorded. Imaging Results Imaging Date Name Status LastModified by Organization Details LastModified Time 11/12/2023 electrocardiogram completed [email or web address] Informa tion not available 04/08/2024 15:34:46 06/04/2024 US, abdomen, complete completed [email or web address] [place], [address], 06/18/2024 11:12:25 07/15/2024 electrocardiogram completed [email or web address] Main Of [address], [address], 07/15/2024 17:12:05 07/17/2024 electrocardiogram completed [email or web address] Main Of [address], [address], 07/17/2024 14:15:04 Procedure Notes None recorded. Medical Equipment None Reported. Allergies Allergen ID Allergen Name Allergen Category Reaction Reaction Severity Criticality Documentation Date Start Date Code Code System Note Provider Name and Address Organization Details Recorded Time 714 Reglan medicatio n Not available Not available Not available 10/31/20232012 9230 RxNorm Comme nt: adver se_ev ent_t ype: 89516 8002; ; Not Available [facility] 4 06:50:47 715 Motrin medicatio n Not available Not available Not available 10/31/2023201248 8 RxNorm Comme nt: adver se_ev ent_t ype: 97380 8002; ; Not Available [facility] 4 06:50:47 716 doxycycli ne Not available Not available Not available Not available 10/31/20232017 3640 RxNorm Comme nt: telma se_ev ent_t ype: 90031 8002; ; Not Available [facility] 4 06:50:47 Medications Name Sig Start [...] Available Liquid Nutrition oral 0 Quantity : 24730; Duration : 30; 0 refill(s ) 09/30 [...] Not Available Not Available Not Available Flulaval 5159-3960 45 mcg (15 mcg x 3)/0.5 mL [...] Not Available Not Available Not Available Afluria 9704-0999 45 mcg (15 mcg x 3)/0.5 mL [...] seasonal , injectab le; SU_FULL_ NAME: Cheryl Palomo yordy; Not Available Not Available Not Available Mytesi [...] Available Biktarvy 50 mg-200 mg-25 mg tablet Take 1 tablet every day by oral route for 30 days. 2024 active Not Available Not Available Not Avai lable Afluria Quad 60 mcg (15 mcg x [...] Pneumoco ccal conjugat e PCV20, polysacc haride [id number] conjugat e, adjuvant , PF; Not Available Not Available Not Available Vitals Date Recorded Body height Heart rate Respiratory rate Body temperature Body mass index (BMI) Body weight Systolic blood pressure Diastolic blood pressure Provider Name and Address Organization Details Last Updated DateTime 4 162.56 cm 62 /min 20 /min 98.2 [degF] 20.1 kg/m2 61476.3 1 g 106 mm[Hg] 77 mm[Hg] Jerome PENDLETON 4 11:34:39 Date Recorded Body height Heart rate Body temperature Respiratory rate Body mass index (BMI) Body weight Systolic blood pressure Diastolic blood pressure Provider Name and Address Organization Details Last Updated DateTime 4 162.56 cm 82 /min 97.7 [degF] 18 /min 21.3 kg/m2 05171.4 5 g 123 mm[Hg] 85 mm[Hg] Jerome LEVIN MD [facility] 4 14:10:17 Date Recorded Body height Heart rate Respiratory rate Body temperature Body mass index (BMI) Body weight Systolic blood pressure Diastolic blood pressure Provider Name and Address Organization Details Last Updated DateTime 4 162.56 cm 109 /min 20 /min 97.2 [degF] 21.1 kg/m2 13865.8 6 g 111 mm[Hg] 90 mm[Hg] Jerome LEVIN MD [facility] 4 12:07:11 Date Recorded Body height Heart rate Respiratory rate Body temperature Body mass index (BMI) Body weight Systolic blood pressure Diastolic blood pressure Provider Name and Address Organization Details Last Updated DateTime 4 162.56 cm 89 /min 16 /min 98 [degF] 20.6 kg/m2 42772.0 8 g 123 mm[Hg] 90 mm[Hg] Jerome LEVIN MD [facility] 4 14:28:38 Date Recorded Body height Provider Name an d Address Organization Details Last Updated DateTime 07/15/2024 162.56 cm Jerome LEVIN MD [facility] 07/15/2024 15:22:29 Date Recorded Body temperature Body mass index (BMI) Body weight Respiratory rate Heart rate Systolic blood pressure Diastolic blood pressure Provider Name and Address Organization Details Last Updated DateTime 4 98.7 [degF] 20.6 kg/m2 06772.0 8 g 20 /min 87 /min 120 mm[Hg] 80 mm[Hg] Cheryl Levin MD [address] [place] [address], [address], LYNN LEVIN MD [facility] 4 15:46:02 Social History None [...] Time Meningococcal MCV4O 9 completed Not Available [facility] 10/31/2023 06:54:49 zoster live 9 completed Not Available [facility] 10/31/2023 06:54:50 Influenza, split virus, quadrivalent, preservative 9 completed Not Available [facility] 10/31/2023 06:54:50 Influenza, split virus, quadrivalent, preservative 8 completed Not Available [facility] 10/31/2023 06:54:50 Influenza, split virus, quadrivalent, preservative 0 completed Not Available [facility] 10/31/2023 06:54:50 Past Encounters Encounter ID Performer Location Encounter Start Date Encounter Closed Date Diagnosis/Indication Diagnosis SNOMED-CT Code Diagnosis ICD10 Code Diagnosis Note [id number] Krista Castellano Main Office [address] [place] [address] 05/25/2023 09:48:40 06/27/2023 09:16:16 Human immunodeficiency virus infection 99254663 B20 HIV. Continue Biktarvy 1 tab po [...] /Tivicay.. safe sex. plan of care reviewed [id number] Cheryl Levin MD Main Office [address] [place] [address] 08/24/2023 09:33:00 08/24/2023 10:46:09 Human immunodeficiency virus infection 73874145 B20 HIV. Continue Biktarvy 1 tab po [...] /Tivicay.s afe sex.labs Septemberlan of care reviewed [id number] Cheryl Levin MD Main Office [address] [place] [address] 11/12/2023 11:34:42 11/16/2023 15:00:47 Human immunodeficiency virus infection 84365534 B20 HIV.Contin ue Biktarvy 1 tab po qd.U=Upt aware of PreP availabili ty.condom use.plan of care reviewed Adult [facility] th examination 208004893 Z00.00 [id number] Cheryl Levin MD Main Office [address] [place] [address] 11/21/2023 10:59:43 11/23/2023 14:55:21 [id number] Cheryl Levin MD Main Office [address] [place] [address] 01/14/2024 09:27:39 01/16/2024 13:51:41 [id number] Cheryl Levin MD Main Office [address] [place] [phone] 01/16/2024 10:24:39 01/16/2024 11:50:10 Human immunodeficiency virus infection 88011794 B20 HIV.Contin ue Biktarvy 1 tab po qd.U=Upt aware of PreP availabili ty.condom use.labs todayplan of care reviewed Candidiasis of mouth 797 53899 B37.0 nystatin 5cc po qid x 14 days. swish and spit.call with any side effects.ba cterial/fu ngal swab obtained. 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 [id number] Cheryl Levin MD Main Office [address] [place] [address] 02/14/2024 12:00:04 02/14/2024 12:24:19 Human immunodeficiency virus infection 92772239 B20 HIV.Contin ue Biktarvy 1 tab po qd.U=Upt aware of PreP availabili ty.DoxyPEP reviewedco ndom use.labs todayplan of care reviewed Methicilli n resistant Staphylococcus aureus infection 392074772 A49.02 swab culture 01/2024 Candidiasi s of the esophagus 70310236 B37.81 sandy glabratafl uconazole 100mg po qd x 14 dayscall with any side effects. Weight loss 16303502 R63 .4 contributi ng factor sandy, MRSA, HIV among othermight benefit from Serostim.w ill review with himG tube [id number] Cheryl Levin MD Main Office [address] [place] [address] 02/21/2024 11:08:05 02/21/2024 12:09:56 Human immunodeficiency virus infection 72248144 B20 HIV.Contin ue Biktarvy 1 tab po qd.complia nce reviewedU= Upt aware of PreP availabili ty.DoxyPEP reviewedco ndom use.labs todayplan of care reviewed Candidiasi s of the esophagus B37.81 sandy glabratato complete fluconazol e 100mg po bid x 14 days: (10mg/ml) 10ml by G tube bidcall with any side effects. Methicilli n resistant Staphylococcus aureus infection 780420528 A49.02 swab culture urr ently on Bactrim oral suspension (200mg- 40mg/5ml) since 02/15-20ml q 12 hrs G tube x 10 days Cachexia a ssociated with AIDS 936715661 B20 R64 weight loss. frail. progressin g.contribu ting factor sandy, MRSA, HIV among other. G tubeSerost im 6mg sq qd will be prescribed with the goal of helping w weight gain, increase muscle mass gain, and increase enduranceh e has visiting nurse who could assist with daily injections . [id number] Cheryl Levin MD Main Office [address] [place] [address] 02/25/2024 10:24:53 02/25/2024 11:09:27 Human immunodeficiency virus infection 16894008 B20 HIV.Contin ue Biktarvy 1 tab po qd.complia nce reviewedU= Ucondom use.labs todayplan of care reviewed Candidiasi s of the esophagus B37.81 sandy glabratawi ll continue fluconazol e 200 mg po qd x 14 days: (10mg/ml) 10ml by G tube QD;will on next appointmen t for further tx va suppressio n tx.call with any side effects. Cachexia a ssociated with AIDS 881619823 B20 R64 weight loss. frail. progressin g.approved Serostim 6mg sq qd; awaiting delivery to the office. will be prescribed with the goal of helping w weight gain, increase muscle mass gain, and increase enduranceh e has visiting nurse who could assist with daily injections .ensure tidmegace 625 mg qd. Methicilli n resistant Staphylococcus aureus infection 935719714 A49.02 swab culture 01/2024will complete 10 days of Bactrim oral suspension (200mg- 40mg/5ml) since 02/15-20ml q 12 hrs G tube on 02/27/24 [id number] Cheryl Levin MD Main Office [address] [place] [phone] 03/14/2024 10:24:00 03/14/2024 10:29:25 Cachexia associated with AIDS 385402101 R64 B20 gained 2 pounds. probably improved sandy esophagiti s 2nd to inhaled steroids.S Tart Serostim 6mg s/c qd abdomen. first dose administer ed today. Tolerated well; goalis to increase weight, endurance and muscle massHe will have ASSESSMENT TECHNICIAN and nurse help with daily injections .potential side effects reviewed.t o call with any concernshe will cone picker Megace today, and start it as well(G tube) qd to increase apetitte Human immunodeficiency virus infection 01649650 B20 HIV.Contin ue Biktarvy 1 tab po qd.complia nce reviewed Candidiasi s of the esophagus 36925521 B37.81 sandy glabratawi ll continue 2 more weeks of fluconazol e 200 mg po qd x 14 days: (10mg/ml) 10ml by G tube QD;might benefit from qw suppressio n tx.call with any side effects. [id number] Cheryl Levin MD Main Office [address] [place] [phone] 04/18/2024 09:52:00 04/18/2024 11:19:01 Cachexia associated with AIDS 234878247 R64 B20 124 lbs. gained weightcont inue Serostim 6mg s/c qd abdomen. goalis to increase weight, endurance and muscle masscontin ue Megace G tube qdCNA and nurse helping with compliance and tx.potenti al side effects reviewed.t o call with any concerns Human immunodeficiency virus infection 15252292 B20 HIV.Contin ue Biktarvy 1 tab po qd.padmini hoffman reviewedla bs today Candidiasi s of the esophagus 02194033 B37.81 sandy glabratawi ll continue fluconazol e 200 (10ml) mg G tube qw for suppressio n tx.call with any side effects. Aspiration pneumonia 422 134247 J69.0 get discharge summaryon antibiotic ;eat standing or sitting; [place] [id number] Cheryl Levin MD Main Office [address] [place] [address] 05/20/2024 10:17:53 05/20/2024 12:44:49 Cachexia associated with AIDS 950517319 R64 B20 continue Serostim 6mg s/c qd abdomen. goal is to increase weight, endurance and muscle masscontin ue Megace G tube qd 5cc qdCNA and nurse helping with compliance and tx.potenti al side effects reviewed.t o call with any concerns Human immunodeficiency virus infection 53186182 B20 HIV.Contin ue Biktarvy 1 tab po qd.padmini hoffman reviewedla bs today Candidiasi s of the esophagus 89392052 B37.81 sandy glabrataho ld fluconazol e for nowSTART 1 tab po bid x 21 says for esophageal sandy glabrata.c all with any side effects. [id number] Cheryl Levin MD Main Office [address] [place] [address] 06/18/2024 10:10:09 06/18/2024 11:12:33 Cachexia associated with AIDS [id number] R64 B20 continue Serostim 6mg s/c qd abdomen. goal is to increase weight, endurance and muscle massCNA and nurse helping with compliance and tx.megace on holdpotent ial side effects reviewed.t o call with any concerns Human immunodeficiency virus infection 23560757 B20 HIV.Contin ue Biktarvy 1 tab po qd.padmini hoffman reviewedla bs today Inflammato ry disease of liver 380884524 K75.9 Suspect 2nd to concomitan t medication s. ongoingdo not re-start fluconazol e nor megacenega tive infectious and non-infect ious workupto call or ER if jaundice, abd pain, n/v/d marce huertas History of calculus of kidney [id number] Z87.442 u/s 05/[address] scan 02/2024hydr ation Aspiration pneumonia 422 715584 J69.0 s/p aspiration on CT AngioNPO per instructio n given to him in hospital; nutrition by G tubes/p (ceftriaxo ne,Azithro ,Flagyl while in Hospital;d ischarged on azithro and cefpodoxim e x 3 days which he completed. leg elevationa void sedating meds as much as possible Deep venou s thrombosis of lower extremity [id number] I82.409 left lower extremity doppler showed DVT of gastrocnem ius vein;on tx w w Eliquis bid . Pulmonary embolism [address] Angio was positive for Acute lobar PEs/p heparin; ongoing Eliquis bidmed list reviewed.n o drug use for years. not on maintenanc e tx.denies current ETOH use. 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 goal is to increase weight, endurance and muscle masspotent ial side effects reviewed.t o call with any concerns Human immunodeficiency virus infection 43211350 B20 HIV.Contin ue Biktarvy 1 tab po qd.complia nce reviewedla bs Candidiasi s of the esophagus 87266747 B37.81 on clotrimazo le. swish and spit qd Medication monitoring 39 3159665 Z51.81 Health Concerns Section Related Observation LastModified by Organization Detai ls LastModified Time None Recorded Concern Status LastModified by Organization Details LastModified Time None Recorded Advance Directives Directive None Recorded Payers Encounter Date Sequence Insurance Name Policy Number Policy Perry Covered Member ID Perry Member ID Guarantor Name 03/14/2024 1 [facility] - DOS ON OR AFTER 2022 - MED[place]/ADV ANTAGE - PPO) [facility] [id number] [employer] [facility] 04/18/2024 1 [facility] - DOS ON OR AFTER 2022 - [place]/ADV ANTAGE - PPO) [employer] [id number] [employer] [facility] 05/20/2024 1 [facility] - DOS ON OR AFTER 2022 - [place]/ADV ANTAGE - PPO) [facility] [id number] [facility] 06/18/2024 1 [facility] - DOS ON OR AFTER 2022 - [place]V ANTAGE - PPO) [facility] [id number] [facility] 07/15/2024 1 [facility] - DOS ON OR AFTER 2022 - [place]/ADV ANTAGE - PPO) [facility] [id number] [facility] Notes Date Note Type Note Provider Name [...] VL nondetetcted01/2024 HIV VL nondetcetd;eGFR=76;AST /ALT wnl;11/2023 DC7=249; HIV VLnondetceted; no infections.01/2022 DO9=194; HIV VL nondetceted; eGFR>60; ALt/AST wnl; syphilis neg; GC/chlamydia neg Cheryl Levin MD [address] [place] [address], [phone], LYNN LEVIN MD [facility] 03/16/2024 22:34:36 04/18/2024 text/html HIVOn [...] VL nondetetcted01/2024 HIV VL nondetcetd;eGFR=76;AST /ALT wnl;11/2023 ZP3=246; HIV VLnondetceted; no infections.01/2022 RD7=975; HIV VL nondetceted; eGFR>60; ALt/AST wnl; syphilis neg; GC/chlamydia neg Cheryl Levin MD [address] [place], [phone], LYNN LEVIN MD [facility] 04/18/2024 14:20:48 05/20/2024 text/html HIVOn [...] VL nondetetcted01/2024 HIV VL nondetcetd;eGFR=76;AST /ALT wnl;11/2023 MS7=485; HIV VLnondetceted; no infections.01/2022 VM8=973; HIV VL nondetceted; eGFR>60; ALt/AST wnl; syphilis neg; GC/chlamydia neg Cheryl Levin MD [address] [place] [address], [phone], [facility] CHERYL LEVIN MD [facility] 05/20/2024 12:17:47 06/18/2024 text/html HIVOn Herbiearvy 1 tab po qd.reports daily compliance. denies missing dose.resolved thrush. hx recurrence. fluconazole and voriconazole on hold. Pt reports was hospitalized at [facility] 06/10/24-06/13/24 ( got to ER on [...] VL nondetetcted01/2024 HIV VL nondetcetd;eGFR=76;AST /ALT wnl;11/2023 VU9=818; HIV VLnondetceted; no infections.01/2022 EA3=727; HIV VL nondetceted; eGFR>60; ALt/AST wnl; syphilis neg; GC/chlamydia neg Cheryl Levin MD [address] [place] [address], [phone], LYNN LEVIN MD [facility] 06/18/2024 18:19:56 07/15/2024 text/html HIVOn Biktarvy 1 tab po qd.reports daily compliance. denies missing dose.thrush on/off: recurrence. on clotrimazole daily .stable weight 120lbshe says he is eating more and apetitte has improvedfeels strongergetting serostim dailyno hospitalizations since he was last seenmed list reviewed.On Eliquis and enoxaparin. recent PE/DVT.VL nondetected03/2024 HIV VL nondetctedHIV VL nondetetcted01/2024 HIV VL nondetcetd;eGFR=76;AST /ALT wnl;11/2023 VK0=813; HIV VLnondetceted; no infections. Cheryl Levin MD [address] [place] [address], [phone], LYNN LEVIN MD [facility] 07/15/2024 15:47:48
--- OUTSIDE RECORDS SUMMARY | 2024-10-01 07:54 | XMS_ITS | Continuity of Care Document ---
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 Other Unknown Unavaila ble DUFFY, VICKIE Personal Relationship Unknown Unava ilable DUFFY, VICKIE Personal Relationship Unknown Unava ilable DUFFY, VICKIE Personal Relationship Unknown Unava ilable DUFFY, VICKIE Personal Relationship Unknown Unava ilable DUFFY, [facility] Personal Relationship Unknown Unava ilable DUFFY, VICKIE [...] Unknown Unava ilable Care Team Providers Care Screw Machine Operator Swiss Type Name Role Phone Tatiana Garrido MD Primary Care Physician [phone] Encounter [facility] Date(s): 08/26/24 - 09/25/[address] [address] Attending Physician: Admtr, Ar8 Admitting Physician: Admtr, Ar8 Referring Physician: Admtr, Ar8 Encounter Type: Triage Allergies, Adverse Reactions, Alerts Substance Criticality Severity Reaction Reaction Severity Status codeine 1 Rash Active Ultram stomach ache Active ibuprofen hives Active penicillins Active Tylox Rash Active Bactrim Active Reglan Soft tissue swelling [...] Refills, Maintenance, 06/27/24 2:49:00 PM EDT, Tablet, [facility] 3, Partial fill upon patient request if [...] PM EDT, Aerosol, Route to Pharmacy Electronically, [id number], [facility] 3, 162, cm, 06/27/24 15:12:00 EDT, Height, [...] Team Personnel Name: Vivian Fuller RN Position: S RN Member Role: Primary Care Nurse Name: Tatiana Garrido MD Position: [facility] Physician - Primary Care Member Role: PCP Address: [address] [place] [address] Telecom: Name: Allison Cabrera RN Position: S RN Member Role: Primary Care Nurse Name: Sarah Felipe RN Position: S RN Member Role: Primary Care Nurse Name: Kevan De La Paz RN Position: S RN Member Role: Primary Care Nurse Name: Mariajose Daugherty RN Position: S RN Member Role: Primary Care Nurse Name: Yenifer Mulligan RN Position: S RN Member Role: Primary Care Nurse Care Team Related Persons Name: ISAAC GARCIA Name: KRISS JULIEN Name: SUNITHA DUFFYRO Insurance Providers Guarantor name: [facility] Health Plan Information #: 1 Payer: [facility] Member Number: NA Policy Number: NA Group Number: NA
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
--- OUTSIDE RECORDS SUMMARY | 2024-10-01 07:55 | XMS_ITS | Data Portability ---
Author Organization [facility] [employer] [facility] Main Office Address [address] [facility], [address] [place] [address] Care Team Providers Care Instrument Shop Supervisor Name Role Phone BRENDAN HOLLINGSWORTH - 2ND FLOOR OTHER Assessment Encounter Date Assessment Date Assessment LastModified by Organization Details LastModified Time 09/18/2023 09/18/2023 45 minutes spent on coordination of discharge. Not available 09/18/2023 09:47:05 Plan of Treatment [...] and Address Organization Details Recorded Time Asthenia 50990904 Active 2022 MAURO DUFFY NP [address] [facility], [address], [place], [address], [facility] [employer] 3 12:08:07 Moderate protein-calori e malnutrition (weight for age 60-74 percent of standard) 823091126 Active 2022 MAURO DUFFY NP [address] [facility], [address], [place], [address], [facility] 3 12:08:23 Pneumonia 904696317 Active 2022 MAURO DUFFY NP [address] [facility], [address], [place], [address], [facility] 3 12:08:31 Pleural effusion 73331070 Active 2022 MAURO DUFFY NP [address] [facility], [address], [place], [address], [facility] [employer] [facility] 3 12:08:59 Hypertensive disorder 87794547 Active 2022 MAURO DUFFY NP [address], [address], [place], [address], [facility] [facility] 3 12:09:07 Human immunodeficien cy virus infection 37271627 Active 2022 MAURO DUFFY NP [address], [address], [place], [address], [facility] 3 12:09:12 Viral hepatitis C 15306570 Active 2022 MAURO DUFFY NP [address], [address], [place], [address], [facility] 3 12:09:28 Mixed anxiety and depressive disorder 003472047 Active 2022 MAURO DUFFY NP [address], [address], [place], [address], [facility] 3 12:09:40 Asthma 871811904 Active 2022 MAURO DUFFY NP [address], [address], [place], [address], [facility] 3 12:09:56 Acute dermatitis 64279329 Active 2022 MAURO DUFFY NP [address], [address], [place], [address], [facility] 3 12:14:27 Migraine 05150908 Active 2022 MAURO DUFFY NP [address], [address], [place], [address], [facility] 3 12:25:08 Non-traumatic rhabdomyolysis 334908739 Active 2022 Leilani Romeo MD [address], [address], [place], [address], [facility] 3 10:08:19 Moderate persistent asthma 824998189 Active 2022 Leilani Romeo MD [address], [address], [place], [address], [facility] 3 10:18:10 Insomnia 909460908 Active 2022 Leilani Romeo MD [address], [address], [place], [address], [facility] 3 10:19:09 Polysubstance abuse 984134137 Active 2022 Leilani Romeo MD [address], [address], [place], [address], [facility] 3 10:19:11 Adult failure to thrive syndrome 588561481 Active 2022 Maryjane Glover NP [address], [address], [place], [address], [facility] 3 13:27:15 Anemia 234183503 Active 2022 Maryjane Glover NP [address], [address], [place], [address], [facility] 3 13:30:43 Dysphagia 68048992 Active 2022 Leilani Romeo MD [address], [address], [place], [address], [facility] 3 20:51:38 Gastroesophage al reflux disease without esophagitis 949857463 Active 2022 Leilani Romeo MD [address], [address], [place], [address], [facility] 3 20:54:24 Chronic pain 02722184 Active 2022 Leilani Romeo MD [address], [address], [place], [address], [facility] 3 20:55:56 Problem Notes None recorded. Medical Equipment None Reported. Allergies Allergen ID Allergen Name Allergen Category Reaction Reaction Severity Criticality Documentation Date Start Date Code Code System Note Provider Name and Address Organization Details Recorded Time [id number] 2824e codeine medicatio n Not available Not available Not available 01/17/2023 2670 RxNorm rash Not Available Not Available Not Available [id number] [id number] 6471209n6 2824e Levaquin medicatio n Not available Not available Not available 01/17/2023 52870 2 RxNorm rash Not Available Not Available Not Available [id number] [id number] [id number] 2824e Reglan medicatio n Not available Not available Not available 01/17/2023 9230 RxNorm rash Not Available Not Available Not Available [id number] 073729785 [id number] 2824e ibuprofen medicatio n Not available Not available Not available 01/17/2023 5640 RxNorm reflu x Not Available Not Available Not Available [id number] [id number] [id number] 2824e Product containin g penicilli n and antibioti c (product) medicatio n Not available Not available Not available 01/17/2023 48686 05 SNOMED rash Not Available Not Available Not Available [id number] [id number] [id number] 2824e Ultram medicatio n Not available Not available Not available 01/17/2023 68422 6 RxNorm N/V Not Available Not Available Not Available [id number] 29b50 acetamino phen medicatio n other Not available unabletoasse 08/03/2023 161 RxNorm unkno wn Not Available Not Available Not Available [id number] 29b50 [employer] environme nt,medica tion other Not available unabletoasse 08/03/2023 91228 6 RxNorm unkno wn Not Available Not [...] Details Last Updated DateTime 3 167.64 cm 51674.5 4 g 17.4 kg/m2 86 /min 18 /min 97.6 [degF] 91 % 91 % 115 mm[Hg] 68 mm[Hg] Maryjane Glover NP [address] [facility], [address], [place], [address], [facility] 3 11:08:33 Date Recorded Body height Body weight Heart rate Respiratory rate Body temperature Oxygen saturation Oxygen saturation in Arterial blood by Pulse oximetry Systolic blood pressure Diastolic blood pressure Provider Name and Address Organization Details Last Updated DateTime 3 167.64 cm 65775.5 4 g 72 /min 18 /min 97.1 [degF] 96 % 96 % 115 mm[Hg] 68 mm[Hg] Maryjane Glover NP [address] [facility], [address], [place], [address], [facility] 3 13:10:32 Date Recorded Body height Body mass index (BMI) Body weight Heart rate Systolic blood pressure Diastolic blood pressure Provider Name and Address Organization Details Last Updated DateTime 3 167.64 cm 17.3 kg/m2 65959.3 8 g 74 /min 133 mm[Hg] 85 mm[Hg] Dilia Hartleyshar Gonzalez [address] [facility], [address], [place], [address], [facility] 3 13:13:45 Date Recorded Body height Body weight Heart rate Respiratory rate Body temperature Oxygen saturation Oxygen saturation in Arterial blood by Pulse oximetry Systolic blood pressure Diastolic blood pressure Provider Name and Address Organization Details Last Updated DateTime 4 167.64 cm 13973.5 4 g 88 /min 18 /min 97.6 [degF] 96 % 96 % 133 mm[Hg] 85 mm[Hg] Maryjane Glover NP [address] [facility], [address], [place], [address], [facility] 4 19:10:48 Date Recorded Body height Heart rate Respiratory rate Body temperature Oxygen saturation Oxygen saturation in Arterial blood by Pulse oximetry Systolic blood pressure Diastolic blood pressure Provider Name and Address Organization Details Last Updated DateTime 4 167.64 cm 84 /min 18 /min 97.5 [degF] 98 % 98 % 133 mm[Hg] 85 mm[Hg] MAURO DUFFY NP [address], [address], [place], [address], [facility] 4 08:57:54 Social History Question Answer Notes LastModified by Organizat ion Details LastModified Time Tobacco Smoking Status Never Smoker MAURO DUFFY NP [address], [address], [place], [address], [facility] 01/17/2023 11:35:26 Do You Have An Advance Directive? Yes [email or web address] Information not available 01/17/2023 What Is Your Level Of Alcohol Consumption? None [email or web address] Information not available 01/17/2023 What Is Your Code Status? Full Code [email or web address] Information not available 01/17/2023 Where Do You Live? Apartment With Elevator, Family Near By, Helpful [email or web address] Information not available 01/17/2023 What Was The Date Of Your Most Recent Tobacco Screening? 08/03/2023 Information not available 08/03/2023 Do You Use Any Illicit Or Recreational Drugs? No Noted Past Use Cocaine Information not available 08/03/2023 Has Tobacco Cessation Counseling Been Provided? No [email or web address] Information not available 01/17/2023 Do You Or Have You Ever Used Any Other Forms Of Tobacco Or Nicotine? No [email or web address] Information not available 01/17/2023 Sex: Unknown Functional Status None recorded. Mental Status None recorded. Family History Relationship Description Onset Age of this Age Resolved Age Notes LastModified by Organization Details LastModified Time Mother Malignant tumor of lung [email or web address] Not available 2022 11:34:21 Medical History No medical history recorded. Immunizations Vaccine Type Date Status Note Provider Nam e and Address Organization Details Recorded Time COVID-19, mRNA, LNP-S, bivalent, PF, 50 mcg/0.5 mL or 25mcg/0.25 mL dose 2 completed Asia juarez, [facility] [employer] [facility] 09/11/2023 13:44:56 COVID-19, mRNA, LNP-S, bivalent, PF, 50 mcg/0.5 mL or 25mcg/0.25 mL dose 3 completed Asia juarez, [facility] 09/11/2023 13:45:39 Pneumococcal conjugate PCV20, polysaccharide [id number] conjugate, adjuvant, PF [facility] 13:46:16 Influenza, adjuvanted, quadrivalent, PF 3 completed Asia juarez, [facility] 09/11/2023 13:46:36 Influenza, adjuvanted, quadrivalent, PF 2 completed Asia juarez, [facility] 10/24/2023 13:13:32 Past Encounters Encounter ID Performer Location Encounter Start Date Encounter Closed Date Diagnosis/Indication Diagnosis SNOMED-CT Code Diagnosis ICD10 Code Diagnosis Note [id number] MAURO DUFFY NP [address] [address] 01/17/2023 11:16:19 01/22/2023 12:34:21 Pleural effusion 27347988 J90 and empyema, resp. failures/p L chest tube, intubation Clinically improved.M onitor VS, sats, LS, CP status closely for decompensa tion Pneumonia 346712411 J18. 9 Treated with IV zosyn in hosp.Clini lesly improved.A s above, monitlr VS, sats, LS, CP status closely Asthenia 26116373 R53.1 PT OT eval and tx. Moderate protein-calorie malnutrition (weight for age 60-74 percent of standard) 611510711 E44.0 Started supplement s in hosp.Refer to brim ironer hand here.Seen by in hosp, diet changed to chopped/ad vanced consistenc yOn reg. diet here, doing well. Refer to rehab to try to get bedside FEES testing Hypertensive disorder 38 027994 I10 On norvasc 5 mg dailyPropr anolol ER held in hosp., instructed to resume 03/09, unclear as to why held or if used for something else?Monio r VS, adjust meds prn Human immunodeficiency virus infection 65666197 B20 Continue biktarvy Mixed anxi ety and depressive disorder 111507700 F41.8 Continue home meds:clona zepam 1 mg daily? risperdal 2 mg HSremeron 60 mg HSMonitor mood, behaviors for changePsyc h eval prn Asthma 192550842 J45.90 9 Continue flovent bidMonitor resp. status for change Acute dermatitis 6191404 6 L30.9 bilat. groin, fungalstar t nystatin cream or powder bid x 14 days or until clearmonit or Migraine 87496538 G43.90 9 Continue home meds:Celeb monica 200 mg bidgabapen tin 600 mg tidibuprof en 800 mg q8 hr prnultram 50 daily prn? clonazepam 1 mg daily? risperdal 2 mg HS? propranolo l Er 120 mg daily - held in hosp - cont. to hold here, resume date of 03/09 noted in d/c papersMoni [facility] [id number] Kenia Michaels MD [address] [address] 01/19/2023 07:22:18 01/22/2023 15:16:30 Pneumonia 513759100 J15.8 antibiotic s completeds /p empyema, respirator y failure, intubation will monitor Asthenia 11054712 R53.1 PT/OTwill monitor Human immunodeficiency virus infection 78712523 B20 Biktarvy 50-200-25 dailyfu I.D. Essential hypertension 45342144 I10 amlodipine 5 mg dailywill monitor Mixed anxi ety and depressive disorder 452672449 F41.8 gabapentin 600 mg tidmirtaza pine 60 mg at hsrisperid one 2 mg at hsclonazep am 1 mg dailywill monitor Gastroesop hageal reflux disease without esophagitis 854240025 K21.9 pantoprazo le 40 mg dailywill monitor Chronic pain 59673794 G8 9.29 gabapentin 600 mg tidhospita l discharge notes include:ce lecoxib 200 m bid, ibuprofen 800 mg q8h prn, tramadol 50 mg daily prnwill monitor and consider if needed [id number] Panchito Morales NP [facility] [address] [place] [address] 06/30/2023 08:20:37 07/03/2023 11:44:52 Human immunodeficiency virus infection 53054757 B20 06/30/23mo nitorID consult as indicated- biktarvy (bictegrav ir, emtricitab ine & tenofovir alafenamid e) 50-200-25m g QD Hypertensive disorder 38 571282 I10 06/30/23mo nitorcards FU PRNavoid beta barb with HX of cocaine abuse-amlo dipine 5mg QD Mixed anxi ety and depressive disorder 997156267 F41.8 06/30/23mo nitorpsych consult PRN-risper idone 3mg QHS Viral hepatitis C 261154 07 B19.20 06/30/23mo nitor [id number] Leilani Romeo MD [facility] [address] [place] [address] 07/02/2023 17:00:01 07/12/2023 14:37:46 Human immunodeficiency virus infection 44085392 B20 Non-detect able on last checkConti nue biktarvy (bictegrav ir, emtricitab ine & tenofovir alafenamid e) 50-200-25m g QDF/U with ID as planned. Hypertensive disorder 38 307952 I10 BP good since here.Sam nue amlodipine 5 mg qdMonitor BP and labs. Mixed anxi ety and depressive disorder 217094052 F41.8 Mood stable.Con tinue risperidon e 3 mg qhs, mirtazapin e 30 mg qhs, and clonazepam 1 mg qd.Monitor mood.Psych consult prn. Viral hepatitis C 088528 07 B18.2 Unclear hx.LFTs WNL.F/U as outpt. Acute chest pain 7300288 01 R07.89 Per cardio not ACS.Monito r sxs.F/U with cardio prn. Non-trauma tic rhabdomyolysis 170161165 M62.82 CPK trended down inpt.No need to monitor further. Moderate p ersistent asthma 392102029 J45.40 No SOB or hypoxia, but with junky cough as above.Cont inue Advair 230/21 two puffs BID, Flovent 2 puffs BID, and albuterol/ budesonide 2 puffs q 6 hrs prn.Monito r resp status. Polysubstance abuse 4452 14913 F19.10 Most often cocaine, but sometimes other things.Con tinue SUDs counseling while here and encourage abstinence and outpt f/u. Cough 10738914 R05.8 Sounds junky, but pt says it feels like tickle in throat. Maybe post nasal drip.Lungs clear, but still could be early PNA.Will start Robitussin DM 10 ml q 4 hrs prn and get CXR tomorrow.M onitor resp status. Insomnia 407024148 G47.0 9 Will try melatonin 5 mg qhs.Monito r sleep patterns. [id number] MIGUEL BROWN [facility] on [address] [place] [address] 07/05/2023 08:16:20 07/12/2023 16:01:31 Mixed anxiety and depressive disorder 439997543 F41.8 07/05: his mood is stablecont inue:clona zepam 1 mg dailyrispe ridone 3 mg daily at bedtime.Mi rtazapine 30 mg at bedtime daily.tu tonin 5 mg at bedtime daily Cough 49866636 R05.8 07/05: non productive upper airway congested coughThere is no SOB. LS are clearCXR completed; no active pulmonary infiltrate s or pleural effusions seen.Robit ussin DM 10 ml q 4 hrs prn- will scheduled for a few days, does not look like he requested prn.Monito r resp status. Polysubstance abuse 4452 43260 F19.10 Most often cocaine, but sometimes other things.Con tinue SUDs counseling while here and encourage abstinence and outpt f/u. [id number] MGIUEL BROWN [facility] on [address] [place] [address] 07/06/2023 09:35:29 07/12/2023 16:16:45 Mixed anxiety and depressive disorder 181638011 F41.8 continue:c lonazepam 1 mg dailyrispe ridone 3 mg daily at bedtime.Mi rtazapine 30 mg at bedtime daily.tu tonin 5 mg at bedtime dailyfollo w up with outpatient PCP. Cough 86821972 R05.8 CXR on 07/03/23 negative for any acute process.Ro bitussin DM 10 ml q 4 hrs prnfollow up with outpatient PCP. Acute dermatitis 6323930 6 L30.9 continueny statin cream BID as needed until clearedfol low up with outpatient PCP. Asthma 048459131 J45.90 9 Advair 230/21 two puffs BID,Floven t 2 puffs BID, andalbuter ol/budeson kentrell 2 puffs q 6 hrs prn.follow up with outpatient PCP. Human immunodeficiency virus infection 72948052 B20 Continue biktarvy (bictegrav ir, emtricitab ine & tenofovir alafenamid e) 50-200-25m g QD Hypertensive disorder 38 884924 I10 Continue amlodipine 5 mg qdfollow up outpatient Insomnia 854992745 G47.0 9 melatonin 5 mg at bedtime Migraine 34287639 G43.90 9 Continue home meds: Celebrex 200 mg bid gabapentin 600 mg tid ibuprofen 800 mg q8 hr prn ultram 50 daily prn clonazepam 1 mg daily risperdal 3 mg HS follow up with PCP Viral hepatitis C 281511 07 B18.2 follow labs outpatient follow up with outpatient pcp. [id number] Maryjane Glover NP [address] [address] 08/03/2023 12:58:35 08/08/2023 10:07:33 Human immunodeficiency virus infection 07587971 B20 ID consult prnbiktarv y (bictegrav ir, emtricitab ine & tenofovir alafenamid e) 50-200-25m g QD Asthenia 05839612 R53.1 PT/OT treat and evalwill monitor Essential hypertension 80286166 I10 amlodipine 5 mg dailywill monitor Mixed anxi ety and depressive disorder 340463880 F41.8 gabapentin 600 mg tidmirtaza pine 60 mg at hsrisperid one 3 mg at hsclonazep am 1 mg dailypsych prnwill monitor Gastroesop hageal reflux disease without esophagitis 238930358 K21.9 With recent workup in hosp and PEG placed.use G tube for feedings/m edswill monitor Chronic pain 57239464 G8 9.29 gabapentin 600 mg tidtramado l 50 mg prn dailymulti ple allergies notedwill monitor and consider if needed Polysubstance abuse 4452 95051 F19.10 Most often cocaine per hx with overdoses notedConti nue counseling while here and encourage abstinence and outpt f/u. Asthma 022285304 J45.90 9 advair 2 puff bidalbuter ol 2 puffs q 6 hours prn wheezingMo nitor resp. status for change Viral hepatitis C 933620 07 B18.2 fu with labscurren tly stable liver enzymesmon itor Moderate protein-calorie malnutrition (weight for age 60-74 percent of standard) 459044665 E44.0 now on PEG tube with feedings at 60cc/hrRef er to brim ironer hand here.Seen by in hosp, unclear why he has dysphagia and difficulty eating with workup [facility] here to see if he can take po intakemoni tor Anemia 088102551 D64.9 ferrous gluconate 324 dailymonit or cbc weekly Adult fail ure to thrive syndrome 593264111 R62.7 g tube feedings and meds through g tube at 60cc/hrfai lure to thrive with supplement s in [facility] to eval and treat, consider reintroduc ing foods when ableweight s weeklymoni tor Insomnia 571844651 G47.0 9 benedryl 25 mg qhsmonitor [id number] Leilani Romeo MD [address] [address] 08/06/2023 16:28:34 08/08/2023 11:16:44 Adult failure to thrive syndrome 043013642 R62.7 With marked wt. loss over past few months.Mehrdad barr Jevity 1.0 or 1.2 tanya/ml at 60 ml/hr.Stil l unable to swallow, unknown reason.Con momo SOCIAL WORKER interventi ons to hopefully enable him to eat again.Cait tor wts and labs. Moderate protein-calorie malnutrition (weight for age 60-74 percent of standard) 873008529 E44.0 As above. Human immunodeficiency virus infection 71138501 B20 Last labs show zero viral load.Sam nue Biktarvy (bictegrav ir, emtricitab ine & tenofovir alafenamid e) 50-200-25m g QDF/U with ID as planned. Asthenia 95594166 R53.1 Very deconditio armen.Needs PT/OT for strengthen ing, balance, gait training, safety and function.C ontinue fall precaution s.Monitor for safety. Essential hypertension 02694077 I10 BP running low since here, should improve as nutritiona l status improves.C ontinue amlodipine 5 mg qdMonitor BP and labs. Gastroesop hageal reflux disease without esophagitis 430488779 K21.9 On no meds.I wonder if starting a PPI may help with throat pain?Monit or Chronic pain 48387220 G8 9.29 No c/o tonight.Co ntinue gabapentin 600 mg TID and tramadol 50 mg qd prnMonitor sxs. Asthma 747100694 J45.30 Asthma meds transcribe d incorrectl y on admission here.Was not put on Advair, but rather only albuterol/ budesonide prn.Will restart Advair 230/21 mcg two puffs BIDMonitor resp. status Anemia 855459305 D64.89 Not currently anemic.Con tinue ferrous gluconate 324 mg qdMonitor labs Mixed anxi ety and depressive disorder 071086810 F41.8 Mood stable.Con tinue risperidon e 3 mg qhs, mirtazapin e 60 mg qhs, and clonazepam 1 mg qd.Monitor mood.Psych consult prn. Viral hepatitis C 029076 07 B18.2 Unclear hx.LFTs WNL.F/U as outpt. Polysubstance abuse 4452 60403 F19.10 Most often cocaine, but sometimes other things.Con tinue counseling and encourage abstinence and outpt f/u. Dysphagia 69880714 R13.1 9 Unknown etiology.C ontinue G-tube feeding as above.Cons ider ENT consult. [id number] Maryjane Glover NP [address] [address] 08/16/2023 12:26:03 08/22/2023 11:29:11 Adult failure to thrive syndrome 210263451 R62.7 With marked wt. loss over past few months.Con tinueJevit y 1.5 tanya/ml at 60 ml/hr. brim ironer hand following and will adjust as neededStil l unable to swallow, unknown reason.Con tinue SOCIAL WORKER interventi ons to hopefully enable him to eat again.Cait tor wts and labs. Dysphagia 52659682 R13.1 9 Unknown etiology.C ontinue G-tube feeding as above.Cons ider ENT consult. Moderate protein-calorie malnutrition (weight for age 60-74 percent of standard) 766411355 E44.0 As above. Human immunodeficiency virus infection 70382630 B20 Last labs show zero viral load.Sam nueBiktarv y (bictegrav ir, emtricitab ine & tenofovir alafenamid e) 50-200-25m g QDF/U with ID as planned. Asthenia 01536939 R53.1 Very deconditio armen.Needs PT/OT for strengthen ing, balance, gait training, safety and function.C ontinue fall precaution s.Monitor for safety. Essential hypertension 63832577 I10 BP running low since here, should improve as nutritiona l status improves.a mlodipine 5 mg qdMonitor BP and labs. Gastroesop hageal reflux disease without esophagitis 917241122 K21.9 no meds.Monit or Chronic pain 49759606 G8 9.29 has mild headache todayConti nuegabapen tin 600 mg TIDtramado l 50 mg qd prnMonitor sxs. Asthma 383717561 J45.30 Asthma meds transcribe d incorrectl y on admission here.albut maddi/budes onide prn.Advair 230/21 mcg two puffs BIDMonitor resp. status Anemia 767036286 D64.89 Not currently anemic.juan carlos l order cbc and bmp weekly [id number] gluconate 324 mg qdMonitor labs Mixed anxi ety and depressive disorder 133956963 F41.8 Mood stable.ris peridone 3 mg qhsmirtaza pine 60 mg qhs,clonaz epam 1 mg qd.Monitor mood.Psych consult prn. Viral hepatitis C 042349 07 B18.2 Unclear hx.LFTs WNL.F/U as outpt. Polysubstance abuse 4452 46160 F19.10 Most often cocaine, but sometimes other things.Con tinue counseling and encourage abstinence and outpt f/u. [id number] Maryjane Glover NP [address] [address] 08/22/2023 11:06:38 08/28/2023 14:23:57 Adult failure to thrive syndrome 101808673 R62.7 With marked wt. loss over past few months.Con tinueJevit y 1.2 tanya/ml at 67ml/hr. brim ironer hand following and will adjust as neededStil l unable to swallow, unknown reason.Mehrdad barr SOCIAL WORKER interventi ons to hopefully enable him to eat again.Cait tor wts and labs.08/22 brim ironer hand to assess if bolus feedings can be attempted for homefamily /pt needs g tube care/teach ing for ? dc homemonito r Asthenia 84336192 R53.1 Very deconditio armen, improving every week with therapyNee ds PT/OT for strengthen ing, balance, gait training, safety and function.C ontinue fall precaution s.Monitor for safety. Dysphagia 52560425 R13.1 9 Unknown etiology.C ontinue G-tube feeding as above.Cons ider ENT consult. Anemia 333413219 D64.89 Not currently anemic.juan carlos scales order cbc and bmp weekly [id number] gluconate 324 mg qdMonitor labs Moderate protein-calorie malnutrition (weight for age 60-74 percent of standard) 518808769 E44.0 As above. Human immunodeficiency virus infection 86076792 B20 ContinueBi ktarvy (bictegrav ir, emtricitab ine & tenofovir alafenamid e) 50-200-25m g QDF/U with ID as planned. Essential hypertension 82121130 I10 BP now improving as nutritiona l status improves.1 10s-130s /60scontam lodipine 5 mg qdMonitor BP and labs. Gastroesop hageal reflux disease without esophagitis 067869397 K21.9 no meds.Monit or Chronic pain 70660248 G8 9.29 headache resolvedCo ntinuegaba pentin 600 mg TID, no pain todaytrama dol 50 mg qd prnMonitor sxs. Asthma 689975797 J45.30 Asthma meds transcribe d incorrectl y on admission here.albut maddi/budes onide prn.Advair 230/21 mcg two puffs BIDMonitor resp. status Mixed anxi ety and depressive disorder [id number] F41.8 Mood stable and ding wellrisper idone 3 mg qhsmirtaza pine 60 mg qhs,clonaz epam 1 mg qd.Monitor mood.Psych consult prn. [id number] Maryjane Glover NP [address] [address] 08/29/2023 08:14:48 08/30/2023 19:42:34 Adult failure to thrive syndrome 287400111 R62.7 With marked wt. loss over past few months.Con tinueJevit y 1.2 tanya/ml at 67ml/hr. brim ironer hand following and will adjust as neededStil l unable to swallow, unknown reason.per speech eval: no eating or drinkingMo nitor wts and labs.08/22 brim ironer hand to assess if bolus feedings can be attempted for homefamily /pt needs g tube care/teach ing for ? dc homemonito r110/30 awaiting brim ironer hand to calculate gtube feedings and start Asthenia 73178822 R53.1 Very deconditio armen, improving every week with therapyNee ds PT/OT for strengthen ing, balance, gait training, safety and function.C ontinue fall precaution s.Monitor for safety. Dysphagia 21641930 R13.1 9 Unknown etiology.C ontinue G-tube feeding as above.Cons ider ENT consult. Anemia 853888991 D64.89 Not currently anemic.juan carlos l order cbc and bmp prn, labs stableferr ous gluconate 324 mg qdMonitor labs Moderate protein-calorie malnutrition (weight for age 60-74 percent of standard) 253670209 E44.0 As above. Human immunodeficiency virus infection 54542451 B20 ContinueBi ktarvy (bictegrav ir, emtricitab ine & tenofovir alafenamid e) 50-200-25m g QDF/U with ID as planned. Essential hypertension 14099010 I10 BP now improving as nutritiona l status improves.1 conta mlodipine 5 mg qdMonitor BP and labs. Gastroesop hageal reflux disease without esophagitis 669703137 K21.9 no meds.Monit or Chronic pain 57630220 G8 9.29 headache resolvedCo ntinuegaba pentin 600 mg TID, no pain todaytrama dol 50 mg qd prnMonitor sxs. Asthma 989979875 J45.30 Asthma meds transcribe d incorrectl y on admission here.albut maddi/budes onide prn.Advair 230/21 mcg two puffs BIDMonitor resp. status Mixed anxi ety and depressive disorder 585661330 F41.8 Mood stable and ding wellrisper idone 3 mg qhsmirtaza pine 60 mg qhs,clonaz epam 1 mg qd.Monitor mood.Psych consult prn. Neck pain 14475487 M54.2 incidental neck pain, states slept on it wrongnsg giving tyl, tramadol and gabapentin reposition neckmonito r for relief [id number] Dilia Mikki Hutchinson [address] [address] 09/07/2023 05:15:43 09/13/2023 10:39:11 Adult failure to thrive syndrome 322087031 R62.7 With marked wt. loss over past few months.Con Tim y 1.2 tanya/ml at 67ml/hr. brim ironer hand following and will adjust as neededStil l unable to swallow, unknown reason.Mehrdad barr SOCIAL WORKER interventi ons to hopefully enable him to eat again.Cait tor wts and labs.recei deborah education on gt feeds, SW working on VNA set up for [facility] site daily with NS and dry. apply 2x2 to sitemonito r Asthenia 68420235 R53.1 Very deconditio armen, improving every week with therapyNee ds PT/OT for strengthen ing, balance, gait training, safety and function.C ontinue fall precaution s.Monitor for safety. Dysphagia 03720459 R13.1 9 Unknown etiology.C ontinue G-tube feeding as above.Cons ider ENT consult. Anemia 855776644 D64.89 Not currently anemic.juan carlos scales order cbc and bmp weekly k3ttzzorj gluconate 324 mg qdMonitor labs Moderate protein-calorie malnutrition (weight for age 60-74 percent of standard) 845251463 E44.0 As above. Human immunodeficiency virus infection 84835188 B20 ContinueBi ktarvy (bictegrav ir, emtricitab ine & tenofovir alafenamid e) 50-200-25m g QDF/U with ID as planned. Essential hypertension 00218217 I10 BP now improving as nutritiona l status improves.1 10s-130s /60scontam lodipine 5 mg qdMonitor BP and labs. Gastroesop hageal reflux disease without esophagitis 702366865 K21.9 no meds.Monit or Chronic pain 89175392 G8 9.29 headache resolvedCo ntinuegaba pentin 600 mg TID, no pain todaytrama dol 50 mg qd prnMonitor sxs. Asthma 403636179 J45.30 Asthma meds transcribe d incorrectl y on admission here.albut maddi/budes onide prn.Advair 230/21 mcg two puffs BIDMonitor resp. status Mixed anxi ety and depressive disorder 967144709 F41.8 Mood stable and ding wellrisper idone 3 mg qhsmirtaza pine 60 mg qhs,clonaz epam 1 mg qd.Monitor mood.Psych consult prn. [id number] [facility] [address] 09/12/2023 18:08:08 09/14/2023 11:17:17 Adult failure to thrive syndrome 106188810 R62.7 With marked wt. loss over past [...] dry. apply 2x2 to sitemonito r Asthenia 89172018 R53.1 Very deconditio armen, improving every week with therapyNee ds PT/OT for strengthen ing, balance, gait training, safety and function.C ontinue fall precaution s.Monitor for safety. Dysphagia 56268133 R13.1 9 Unknown etiology.C ontinue G-tube bolus feeding as above.FEES test on Sundayneed s cxr to rule out pna from foods and drinks in room despite recommenda tionConsid er ENT consult. Moderate protein-calorie malnutrition (weight for age 60-74 percent of standard) 037171697 E44.0 As above. Human immunodeficiency virus infection 41131906 B20 ContinueBi ktarvy (bictegrav ir, emtricitab ine & tenofovir alafenamid e) 50-200-25m g QDF/U with ID as planned. Essential hypertension 72956083 I10 BP now improving as nutritiona l status improves.1 10s-130s /60scontam lodipine 5 mg qdMonitor BP and labs. Asthma 393173121 J45.30 no wheezing noted on exam, stablealbu terol/bude sonide prn.Advair 230/21 mcg two puffs BIDMonitor resp. status Mixed anxi ety and depressive disorder 308175255 F41.8 Mood stable and ding wellrisper idone 3 mg qhsmirtaza pine 60 mg qhs,clonaz epam 1 mg qd.Monitor mood.Psych consult prn. [id number] MAURO DUFFY NP [address] [address] 09/18/2023 08:57:08 09/25/2023 10:49:09 Adult failure to thrive syndrome 719585650 R62.7 With marked wt. loss over past few months due to difficulty swallowing .G tube placed 07/30/23 at [facility].Contin ue osmolite 1.2 tanya/ml 410 cc qid bolus tube feedings upon d/c home.Seen by SOCIAL WORKER - now on puree diet with thin liquids - may continue at homeContin ue to monitor weights and intake at home Asthenia 85559653 R53.1 Improved, meeting rehab goals for d/c home today with support of services.C ontinue fall precaution s.Monitor for safety as outpt. Dysphagia 66916144 R13.1 9 Unknown etiology.S ee above.[facility]No w on pureed diet, thin liquidsMon itor intake, s/s aspiration as outpt. Moderate protein-calorie malnutrition (weight for age 60-74 percent of standard) 821460847 E44.0 As above. Human immunodeficiency virus infection 54985211 B20 ContinueBi ktarvy (bictegrav ir, emtricitab ine & tenofovir alafenamid e) 50-200-25m g QDF/U with ID as planned. Essential hypertension 23945316 I10 continue amlodipine 5 mg qdMonitor BP as outpt. Asthma 563655788 J45.30 no wheezing noted on exam, stablecont inue Advair 230/21 mcg two puffs BID and albuterol/ budesonide prn.Monito r resp. status as outpt. Mixed anxi ety and depressive disorder 596098983 F41.8 Mood stable and doing wellContin ue home medsrisper idone 3 mg qhsmirtaza pine 60 mg qhsclonaze david 1 mg qdMonitor mood, behaviors as outpt. Chronic pain 86640474 G8 9.29 continue gabapentin 600 mg tid, ultram 50 mg qd prnmonitor asoutpt. Anemia 602412572 D64.89 remains on daily FeMonitor CBC,s/s active bleeding Health Concerns Section Related Observation LastModified by Organization Detai ls LastModified Time None Recorded Concern Status LastModified by Organization Details LastModified Time None Recorded Advance Directives Directive Y: Payers Encounter Date Sequence Insurance Name Policy Number Policy Perry Covered Member ID Perry Member ID Guarantor Name 08/22/2023 1 [facility] - DOS ON OR AFTER 2022 - MEDICARE [place]VANTAGE [place]ACEMENT/ADV ANTAGE - PPO) [facility] Fall [id number] [facility] 08/29/2023 1 [employer] - DOS ON OR AFTER 2022 - [place]IC[place]/ADV ANTAGE - PPO) [facility] Fall [id number] [facility] Fall 09/07/2023 1 [facility] - DOS ON OR AFTER 2022 - [place]/ADV ANTAGE - PPO) [facility] Fall [id number] [facility] Fall 09/12/2023 1 [facility] - DOS ON OR AFTER 2022 - [place]/ADV ANTAGE - PPO) [facility] [id number] [facility]23 1 [facility] - DOS ON OR AFTER 2022 - [place]IC[place]AGE [place]MED[place] RE[place]ACEMENT/ADV ANTAGE - PPO) [facility] [id number] [facility] Notes Date Note Type Note Provider Name [...] other concerns. Note: He was admitted to [facility] ED for similar concerns earlier this month [...] code signed 01/17/23 Maryjane Glover NP [address], [address], [place], [address], [facility] 08/22/2023 11:24:08 08/29/2023 text/html Patient seen for an 30 routine rounding visit. Past medical history significant for HIV, history of hep C, depression, asthma, history lung abscess 2020, fall, several overdoses noted in hx. dysphagia seen for difficulty swallowing ultimately diagnosed with failure to thrive and PEG tube placed. [facility] was admitted to [facility] ED for difficulty swallowing and underwent EGD [...] from hospital to rehab. While here at [facility]: Pt is 107.6 lbs and this [...] disconnect his feedings without difficulty here. Awaiting brim ironer hand to calculate bolus feedings and start them [...] code signed 01/17/23 Maryjane Glover NP [address], [address], [place], [address], [facility] - [facility] 08/29/2023 13:39:07 09/07/2023 text/html Patient seen for [...] other concerns. Note: He was admitted to [facility] ED for similar concerns earlier this month [...] MOLST: Full code signed 01/17/[address] [place] [address], [address], [place], [address], [facility] 09/07/2023 13:21:25 09/12/2023 text/html Patient seen for [...] code signed 01/17/23 Maryjane Glover NP [address], [address], [place], [address], [facility] 09/12/2023 19:33:00 09/18/2023 text/html Benjamin is seen t heidy for discharge. He is going home today with support of services. He is a 58 yo man admitted to [facility] 08/02/23 from [facility] for continued care and rehab after a hospitalization related to malnutrition and FTT.He presented to [facility] 07/27 reporting throat pain and the inability to swallow.Swallowing issues problematic prior to this presentation, had EGD with Dr. Dodson 07/17, results c/w mild candidiasis normal stomach and duodenum. He was also seen by SOCIAL WORKER, diet changed to NND1 and nectar thick liquid. Due to ongoing swallowing issues at home, he returned to [facility] ER.A g-tube was placed on 07/30, cause of dysphagia unclear. Kept NPO, and sent here for rehab. While here, Benjamin has done well.Worked with PT/OT, meeting goals for d/c home.Also worked with SOCIAL WORKER and brim ironer hand - now tolerating puree diet with thin [...] also, possibly inadvertently). MAURO DUFFY NP [address], [address], [place], [address], [facility] 09/18/2023 09:47:21
[2024-10-01 09:22] LABS: Parathyroid Hormone Intact 36.3 pg/mL (8.7-77.1)
[2024-10-01 09:26] LABS: Anion Gap 9 (12-20); Blood Urea Nitrogen 10 mg/dL (9-16); Calcium 9.7 mg/dL (8.4-10.2); Carbon Dioxide 28 mmol/L (22-29); Chloride 108 mmol/L (96-108); Estimated Glomerular Filt Rate > 60; Glucose Random 109 mg/dL (60-115); Phosphorus 3.6 mg/dL (2.7-4.5); Potassium 3.8 mmol/L (3.3-5.1); Sodium 141 mmol/L (135-145)
[2024-10-01 09:35] LABS: Cortisol Random 4.4 ug/dL
[2024-10-01 09:43] LABS: Vitamin D 25-OH Total 56.2 ng/mL (>30)
[2024-10-02 22:58] LABS: DHEA Sulfate 41 mcg/dL (32-279)
[2024-10-03 11:13] LABS: Calcium, Ionized 5.4 mg/dL (4.7-5.5)
[2024-10-06 02:24] LABS: VITAMIN D (1,25 OH) D3 24 pg/mL; Vit D (1,25-Dihydroxy) Total 24 pg/mL (18-72); Vitamin D (1,25 OH) D2 <8 pg/mL
[2024-10-06 17:43] LABS: Sex Hormone Binding Globulin 36 nmol/L (22-77); Testosterone-Albumin 4.1 g/dL (3.6-5.1); Testosterone-Bioavailable 56.9 ng/dL (110.0-575.0); Testosterone-Free 30.2 pg/mL (46.0-224.0); Testosterone-Total 254 ng/dL (250-1100)
[2024-10-06 21:54] LABS: Adrenocorticotropic Hormone 11 pg/mL (6-50)
[2024-10-07 15:33] LABS: Vitamin D 25-OH, D2 <4 ng/mL; Vitamin D 25-OH, D3 44 ng/mL; Vitamin D 25-OH, Total 44 ng/mL (30-100)
[2024-10-08 15:43] LABS: Parathyroid Hormone Related Pr 23 pg/mL (11-20)
== END 2024-10-01 07:52 | disposition home or self-care (01) ==
LOC: HO.LAB 07:51
PROVIDERS: PCP Student in an Organized Health Care Education/Training Program; Visit Provider Student in an Organized Health Care Education/Training Program
DX: E27.8 Other specified disorders of adrenal gland (principal); M81.0 Age-related osteoporosis without current pathological fracture
CPT/HCPCS: 36415; 80048; 82024; 82040; 82306; 82330; 82530; 82533; 82627; 82652; 83519; 83970; 84100; 84270; 84402; 84403

== ENCOUNTER → 2024-10-17 09:26 | Outpatient (AMB) | payer OTHER, SELFPAY ==
--- NOTE | 2024-10-17 08:03 | A.OFFVIS_ITS ---
Vital Signs 3 10/17/24 09:30 Height 26.42 in Weight 141 lb BMI 142.0 Intake Visit Reasons: Adrenal hyperplasia, osteoporosis Intake Note: Patient present today for Adrenal hyperplasia and osteoporosis office visit. Allergies Seasonal Allergies Allergy (Intermediate, Verified 09/05/24 09:04) Eye Drainage codeine [From Tylenol-Codeine #3] Allergy (Mild, Verified 09/05/24 09:04) Rash levofloxacin [From Levaquin] Allergy (Mild, Verified 09/05/24 09:04) Rash metoclopramide [From Reglan] Allergy (Mild, Verified 09/05/24 09:04) Rash acetaminophen [Tylenol-Codeine #3] Allergy (Unknown, Verified 09/05/24 09:04) Rash Penicillins [PENICILLINS] Allergy (Unknown, Verified 09/05/24 09:04) Rash ibuprofen [From Motrin] Adverse Reaction (Unknown, Verified 09/05/24 09:04) Reflux HPI Comments Details: 59-year-old male with past medical history significant for HIV, hepatitis-C, seizure disorder, hypertension, prediabetes, anxiety/depression, asthma, history of left lung empyema status post drainage, chronic respiratory failure and recurrent aspiration pneumonia, parkinsonism, cardiomyopathy coming in today to for follow up of adrenal hyperplasia and osteoporosis. Here today with PURCHASING MANAGER/SALES. Osteoporosis DEXA scan February 2023 baseline showed osteoporosis with a lumbar spine T-score - 4.5 with L2 as low as -5.1 , -2.1 in total femur and -2.7 left femoral neck Osteoporosis new pt evaluation osteoporosis: Diagnosed in February 2023 Fracture History: None Height loss: patient says he used to be 5 ' 6 before and now 5'3 Back pain: reports B/L lower back pain , intermittent , started 2 weeks ago Pharmacotherapeutic hx: None Drug holiday None Family history: mother had osteoporosis , no parent fractured hip Secondary risk factors: Steroid use: has required intermittent steroids for pneumonia Hyperthyroidism: Neg Seizure medication use: has history of seizure medication use Chemo or Radiation use: Neg Heparin Use: Neg History of eating disorder: yes on PEG tube due to dysphagia for 1 year 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 No hydronephrosis. No perinephric fat stranding. has had 2 hospitalizations PI Use: Yes Chronic inflammatory lung disease: Yes Chronic inflammatory bowel disease: Negative Daily calcium intake: milk three cups a day, no cheese or yogurt , through PEG tube 600 mg BID calcium Vitamin D intake: through PEG tube 800 units BID vitamin D Exercise:not active Smoking history:never smoker Dental: Has regular dental cleaning, no issues has appointment in Oct 2024 Not sexually active No trouble with erections , ejaculation, Does endorse decreased libido Interval history Adrenal hyperplasia CT chest abdomen pelvis February 2024 showed mild asymmetric fullness of the left adrenal gland which is unchanged. CT abdomen 01/03/2023: Showed stable fullness of both adrenal glands. 05/01/2021: Also commented on left adrenal gland is thickened without any discrete mass, right adrenal gland unremarkable Lab workup done March 2023 showed aldosterone of 3, renin activity of 0.5, random cortisol of 8.2, no ACTH level done at that time, mildly elevated plasma free metanephrine of 63 and mildly elevated plasma free normetanephrine of 162, normal 24 hour urine free metanephrine and normetanephrine levels from 04/06/2023. No fractures, has osteoporosis which is severe as noted above. Has well-controlled blood pressure, only on amlodipine. No history of diabetes mellitus. No easy bruising, no proximal muscle weakness he does not have problems with the obesity, if anything he has had failure to thrive due to dysphagia, now better with PEG tube. Physical exam General: sitting comfortably in no acute distress HEENT: normocephalic/atraumatic Neck: supple, symmetrical, no thyromegaly Cardiac: normal heart sounds Pulm: normal breath sounds B/L, no added breath sounds Abd: not distended, no tenderness, PEG tube noted Extremities: no edema, no signs of myxedema Laboratory Tests 01/04/23 04/04/23 04/06/23 05:08 09:39 06:00 Sodium Potassium 2.9 L D Creatinine Estimated GFR Calcium Phosphorus Magnesium Albumin Renin Activity 0.55 Aldosterone 3 Aldosterone/Renin Ratio 5.5 PTH Intact 30 Random Cortisol 8.2 Plasma Free Metaneph 63 H Plasma Free Normeta 162 H Plas Total Metaneph 225 H U Free Metanephrine 160 U Normetanephrine 24h 310 U Tot Metanephrine 24h 470 03/15/24 03/17/24 03/18/24 12:51 05:54 05:54 Sodium Potassium Creatinine Estimated GFR Calcium 8.0 L 8.5 D Phosphorus 2.6 L Magnesium Albumin Renin Activity Aldosterone Aldosterone/Renin Ratio PTH Intact Random Cortisol Plasma Free Metaneph Plasma Free Normeta Plas Total Metaneph U Free Metanephrine U Normetanephrine 24h U Tot Metanephrine 24h 05/07/24 07/15/24 04:06 12:26 Sodium 145 Potassium 3.8 Creatinine 0.88 Estimated GFR > 60 Calcium 10.1 D 10.2 Phosphorus Magnesium 2.3 Albumin 3.9 Renin Activity Aldosterone Aldosterone/Renin Ratio PTH Intact Random Cortisol Plasma Free Metaneph Plasma Free Normeta Plas Total Metaneph U Free Metanephrine U Normetanephrine 24h U Tot Metanephrine 24h Imaging BONE DENSITOMETRY 03/07/23 CLINICAL INDICATION: Compression deformity of vertebra. COMPARISON: None (current study represents initial baseline exam). TECHNIQUE: Using a [employer]oko DXA System (software version: 13.1) manufactured by [employer], dual-energy x-ray absorptiometry was performed of the lumbar spine and left hip. The images are of good technical quality. Summary results are attached. FINDINGS: LEFT FEMUR, NECK: BMD 0.716 g/cm2, Z-score -1.4, T-score -2.7, osteoporosis. LEFT FEMUR, TOTAL: BMD 0.801 g/cm2, Z-score -1.2, T-score -2.1, osteopenia. AP SPINE L1-L4: BMD 0.681 g/cm2, Z-score -3.5, T-score -4.5, osteoporosis. IDENTIFIED RISK FACTORS: Low calcium intake, history of fracture (adult). HISTORY OF FRACTURE: Ankle. MEDICATIONS: Multivitamin. MM/XR DEXA axial skeleton IMPRESSION: 1. DIAGNOSIS: Osteoporosis based on the lowest T-score value of -4.5 in the lumbar spine applying World Health Organization criteria. 2. 10-YEAR FRACTURE RISK PREDICTION, FRAX: According to the guidelines, FRAX calculation should only be performed on patients in the osteopenia bone density category. Therefore, FRAX was not performed on this patient. CT CHEST, ABDOMEN AND PELVIS WITHOUT CONTRAST. 02/15/24 CLINICAL INFORMATION: Chest pain, shortness of breath, left flank pain. COMPARISON: CT chest 01/10/2024. CT abdomen/pelvis 01/03/2023. TECHNIQUE: Multidetector volumetric imaging was performed from the thoracic inlet through the pubic symphysis without IV contrast. Sagittal and coronal reformatted images were obtained on the technologist's workstation. This CT examination was performed using dose optimization techniques as appropriate, variously including the following: *Automated exposure control *Adjustment of mA and/or kV according to patient size (this includes techniques or standardized protocols for targeted exams where dose is matched to indication/reason for exam; i.e. extremities or head) *Use of iterative reconstruction technique DLP: 418 mGy-cm FINDINGS: Limited noncontrast examination. CHEST: Lung: Evaluation is limited due to respiratory motion. No dense consolidation. Dependent subsegmental atelectasis and/or scarring. Layering intraluminal secretions are noted in the upper trachea, ciro and left mainstem bronchi. Focal mild bronchiectasis and architectural distortion in the superior aspect of the right lower lobe (7:156). Minimal groundglass attenuation of the lung parenchyma in the right apex (7:53). Few bilateral up to 3 mm solid pulmonary nodules, for instance in the right lower lobe images 256 and 228 series 7. Very subtle focal groundglass nodule in the right lower lobe measuring 8 mm image 178 series 7. Mediastinum: Cardiomegaly. No pericardial effusion. No mediastinal lymphadenopathy. Evaluation of the hilar structures is limited in the absence of IV contrast. Normal appearance of the thyroid gland. Pleura: No pleural effusion. No pneumothorax. Chest Wall/Axilla: No lymphadenopathy by size criteria. Osseous structures: Stable multilevel vertebral body height loss. Thoracic spondylosis. Unchanged deformities of the left seventh and eighth ribs with overlying metallic densities along the posterior aspect of these ribs. No acute osseous findings. ABDOMEN/PELVIS: Peritoneal Space: No free air or free fluid. Liver, Gallbladder, Biliary Tree: The liver is normal in size, shape, and attenuation. No focal hepatic lesion or biliary ductal dilatation is present. The gallbladder is unremarkable with no evidence of radiopaque gallstones, gallbladder wall thickening, or obvious pericholecystic inflammatory changes. Pancreas: Unremarkable. Spleen: Unremarkable. Adrenal Glands: Mild asymmetric fullness of the left adrenal gland is unchanged. Kidneys and Ureters: Multiple bilateral nonobstructive renal calculi measuring up to 3 mm. No hydronephrosis. No perinephric fat stranding. Bladder: Punctate calcification abutting the left posterior bladder wall (11:65). Gastrointestinal Tract: Gastrostomy tube. The stomach and the small bowel are nondilated. Normal appendix. Mild colonic diverticulosis without pericolonic inflammatory changes. No evidence of bowel obstruction. Abdominal Wall: No significant hernia is appreciated. Lymphovascular Structures: No lymphadenopathy by size criteria. Normal caliber abdominal aorta. Pelvic Viscera: Unremarkable. Osseous Structures: No acute osseous findings. CT/CT abdomen pelvis wo IV con IMPRESSION: 1. No focal consolidation or significant groundglass disease. Intraluminal secretions in the trachea and left mainstem bronchi that could be related with mucous secretions or aspirated material and that could predispose to aspiration. 2. Few bilateral groundglass and solid pulmonary nodules measuring up to 8 mm. Following Fleischner guidelines, follow-up CT chest in 3-6 months is recommended. 3. Nonobstructive bilateral renal calculi. 4. Punctate calcification abutting the left posterior bladder wall that could be related with a recently passed stone. Recommend attention on follow-up in future examinations to ensure the absence of underlying mural lesions. 5. Diverticulosis but no evidence of acute diverticulitis. CT ABDOMEN AND PELVIS WITHOUT CONTRAST 12/17/20 CLINICAL INFORMATION: Abdominal pain. No bowel movement in 5 days. Nausea. COMPARISON: CT abdomen and pelvis noncontrast 04/03/2020 TECHNIQUE: Multidetector volumetric imaging was performed from the superior aspect of the liver through the pubic symphysis. Sagittal and coronal reformatted images were obtained on the technologist's workstation. This CT examination was performed using dose optimization techniques as appropriate, variously including the following: *Automated exposure control *Adjustment of mA and/or kV according to patient size (this includes techniques or standardized protocols for targeted exams where dose is matched to indication/reason for exam; i.e. extremities or head) *Use of iterative reconstruction technique DLP: 347 mGy-cm FINDINGS: LUNG BASES: The visualized lung bases are unremarkable. LIVER, GALLBLADDER, AND BILIARY TREE: The liver is normal in size and smooth in contour. There is mild hepatic steatosis. No focal hepatic parenchymal lesion or intrahepatic ductal dilatation. The gallbladder is unremarkable with no evidence of radiopaque gallstones, gallbladder wall thickening, or obvious pericholecystic inflammatory changes. PANCREAS: Mildly atrophic. No duct dilatation or retroperitoneal inflammatory changes. SPLEEN: Normal in size. Small splenule again seen left upper quadrant, 1 cm. ADRENAL GLANDS: Mild fullness left adrenal stable. Right adrenal unremarkable. KIDNEYS AND URETERS: The kidneys are normal in size and smooth in contour and show no hydronephrosis. There is no hydroureter or perinephric stranding. Again, multiple small nonobstructing intrarenal calculi are present under 5 mm. No ureteral calculi. BLADDER: Unremarkable. GASTROINTESTINAL TRACT: There is moderate stool throughout the colon. There is no small or large bowel dilatation or focal inflammatory changes in the bowel or mesentery. No rectal fecal impaction. The appendix is not demonstrated with certainty and not visible on prior CT 2020 as well. There are no inflammatory changes around the terminal ileum or cecum. No ascites or fluid collection. ABDOMINAL WALL: No significant hernia is appreciated. LYMPH NODES: No lymphadenopathy. VASCULAR: Unremarkable. PELVIC VISCERA: Unremarkable. OSSEOUS STRUCTURES: Unremarkable. CT/CT abdomen pelvis wo con IMPRESSION: 1. Moderate stool throughout colon consistent with clinical history. No bowel obstruction or focal inflammatory changes. 2. Bilateral small nonobstructing renal calculi similar to prior CT 2020. No hydronephrosis or perinephric stranding. [facility] Medical History (Updated 10/10/24 @ 10:37 by Ruchi Wray MD) Adrenal hyperplasia Osteoporosis Height loss HIV (human immunodeficiency virus infection) Asthma Dysphagia Adult failure to thrive Adult failure to thrive Multiple rib fractures History of empyema of pleura (01/05/23) Hypertension Closed fracture of leg Hepatitis C Kidney stones Pleuritic chest pain Pneumonia Substance abuse Hemorrhoids Depression HIV (human immunodeficiency virus infection) Asthma Surgical History H/O hemorrhoidectomy Family History Maternal Grandmother Lung cancer Maternal Aunt Lung cancer Mother Lung cancer Social History Household Members: Caregiver Household Members Other:: lives with [facility] Housing: Apartment Do you presently have visiting nurse or other home services: Yes Alcohol intake: never Patient Tobacco Use Status: Former Tobacco user Tobacco use type: Cigarette e-Cigarette/Vaping Use: Never Used Second Hand Smoke Exposure: No Substance Use Type: Crack/Cocaine Advance Directives Date on File: 04/25/21 service: No Current occupational status: disabled Gender identity: Male Assessment & Plan Assessment & Plan (1) Height loss: Code(s): R29.890 - Loss of height Category: Medical Plan: See below (2) Osteoporosis: Code(s): M81.0 - Age-related osteoporosis without current pathological fracture Category: Medical Qualifiers: Osteoporosis type: age-related Presence of current pathological fracture: without current pathological fracture Qualified Code(s): M81.0 - Age- related osteoporosis without current pathological fracture Plan: 59-year-old male with past medical history significant for HIV, hepatitis-C, seizure disorder, hypertension, prediabetes, anxiety/depression, asthma, history of left lung empyema status post drainage, chronic respiratory failure and recurrent aspiration pneumonia, parkinsonism, cardiomyopathy coming in today to for fup for adrenal hyperplasia and osteoporosis. Osteoporosis was diagnosed on bone density scan in February 2023 which showed severe osteoporosis in the lumbar spine with T-score of-4.5 with L4 as low as-5.1. He also has osteoporosis at the left femoral neck with T-score of -2.7. Patients who have so much discordance in between bone densities in the spine and hip are also at higher risk of fracture compared to those who do not. Plus given his T- scores, he is at severe risk of fractures given his bone fragility. Has risk factors are HIV, history of hepatitis-C, history of seizure disorder with the use of medications in the past, chronic PPI use, malnutrition, chronic respiratory failure. I discussed conservative measures including adequate calcium intake, adequate vitamin D levels as well as the role of weightbearing exercises in general being good for bone health. For now I will check his vitamin-D levels, he is to continue taking says 100 mg of calcium and 800 units of vitamin-D b.i.d. through his PEG tube as he is taking. In addition to conservative management with calcium and vitamin D; I do believe she would benefit from antiresorptive therapy in terms of reducing future fracture risk. Today we discussed the options of anabolic agents, as well as Prolia. Given severe osteoporosis he definitely needs a stronger agent. I counseled regarding the mechanism of action, route of administration, common side effects as well as black box warnings particularly osteonecrosis of the jaw and atypical femur fracture. Prior to initiating therapy I would like her to complete work-up to get baseline bone turnover markers as well as rule out secondary causes of osteoporosis. We will also assess him for any vertebral fractures given significant loss of height. Plan: -ordered secondary workup for osteoporosis -check bone turnover markers -continue vitamin-D 800 units b.i.d. and calcium 600 mg b.i.d. through PEG tube -weight-bearing exercise advised -fall precautions advised -x-rays of spine ordered -follow up in 6 weeks (3) Adrenal hyperplasia: Code(s): E27.8 - Other specified disorders of adrenal gland Category: Medical Plan: 59-year-old male who is noted to have adrenal hyperplasia at least since [address] scan of the abdomen revealed fullness of the left adrenal gland, subsequent CT scans, most recently done in February 2024 again showed mild asymmetric fullness of the left adrenal gland. I reviewed the images myself the right adrenal gland is also slightly more thickened than normal. The left 1 definitely he is much more fall, no discrete mass identified. He has had functional Lab workup done March 2023 showed aldosterone of 3, renin activity of 0.5, random cortisol of 8.2, no ACTH level done at that time, mildly elevated plasma free metanephrine of 63 and mildly elevated plasma free normetanephrine of 162, normal 24 hour urine free metanephrine and normetanephrine levels from 04/06/2023. Lab workup clearly ruled out primary hyperaldosteronism as well as no concern for pheochromocytoma. Mild elevations in plasma metanephrine normetanephrine scan be seen in many other conditions/interference from medications. This is not significant elevation to be concerned about pheochromocytoma. Given that he does have osteoporosis, we will do a 1 mg dexamethasone suppression test specially given he was not evaluated for this in the past. Plan: -check baseline ACTH, cortisol, DHEA-S levels -do 1 mg dexamethasone suppression test -we will consider doing a CT adrenal focused in 1 year from now though given how this fullness has remained stable since 2020 this is very reassuring and not concerning for any malignancy -follow up in 6 weeks to discuss results Plan I spent 60 minutes in reviewing the record, seeing the patient and documenting in the medical record. Coding Diagnoses Height loss R29.890 Age-related osteoporosis without current pathological fracture M81.0 Osteoporosis type: age-related Presence of current pathological fracture: without current pathological fracture Adrenal hyperplasia E27.8
== END | disposition home or self-care (01) ==
PROVIDERS: PCP Student in an Organized Health Care Education/Training Program; Visit Provider Student in an Organized Health Care Education/Training Program
CPT/HCPCS: 99215; G2211

== ENCOUNTER 2024-10-28 11:20 | Outpatient (REF) | payer OTHER, SELFPAY ==
--- NOTE | ~2024-10-28 | XR_ITS ---
CLINICAL HISTORY: pain 4 view right knee Comparison: None Findings: Bones intact. No dislocations. Mild narrowing of the medial knee compartment. Tiny tricompartmental osteophytes. No joint effusion. No radiopaque foreign body. IMPRESSION: Mild tricompartmental osteoarthritis, most advanced within the medial knee compartment. This document has been electronically signed by: Lexis Mccoy MD on 10/28/2024 13:20:53
--- OUTSIDE RECORDS SUMMARY | 2024-10-28 12:36 | XMS_ITS | Data Portability ---
Author Organization [employer] [facility], [place] in - [employer] Address [address] [place] [id number] Care Team Providers Care Security System Sales Consultant Name Role Phone HIM [facility] OTHER [facility] OTHER [phone] Assessment No assessment recorded. Plan of Treatment [...] Not available Not available Not available 07/08/2024 85184 RxNorm Not Available [facility] - production 4 [...] SNOMED-CT Code Diagnosis ICD10 Code Diagnosis Note [id number] ERLINDA HOLLIDAY MD Main - [facility] [address] [place] [id number] 03/06/2024 16:50:44 03/07/2024 17:38:50 Lethargy [id number] R53.83 Evaluation in the field was performed by my corporate tutor colleague. As noted above, I provided real-time [...] He is afebrile. Per discussion with the corporate tutor, the patient looked lethargic, walked with an [...] n. The patient was transferre d to [facility] for further evaluation and treatment. His PCP was informed of the transfer to the ED. Primary care, consider__ _ Dispositio n:[facility] Health Concerns Section Related Observation LastModified by Organization Jazzy ls LastModified Time None Recorded Concern Status LastModified by Organization Details LastModified Time None Recorded Advance Directives Directive None Recorded Payers Encounter Date Sequence Insurance Name Policy Number Policy Perry Covered Member ID Perry Member ID Guarantor Name 03/06/2024 1 [facility] - DOS ON OR AFTER 2022 - DUAL ELIGIBLE - RESIDENTIAL OPTIONS AND ONE CARE (MEDICARE REPLACEMENT/ADV ANTAGE - HMO) Benjamin Juan David [id number] [facility] Juan David Notes Date Note Type [...] ................. ................. ................. ................. ................. ................. ..... Glove Turner Note From Francisco Ley: Dispatched to above address for headache sore throat. On arrival patient met [facility] at the door. Initially patient denied calling for medical help or having any symptoms. [facility] confirmed patient name and address, after this [...] focus on current situation, poor affect, lethargic. [facility] [place], spoke with Dr. Holliday, advised of patient complaints and exam findings. [facility] [place] further evaluation in the ER is necessary for this patient. Patient agreed to this. Patients neighbor who assists patient arrived to check on him. She reports this doesn't seem like his normal mentation but cannot be sure. 911 called. [facility] responded. Verbal report given to [facility] Glove Turner. [facility] corporate tutor took over patient care. [facility] clear. [facility]. ................. ................. ................. ................. ................. ................. ................. ................. ..... Disposition: Shahzad HOLLIDAY MD [address] [facility],[address], [place], [id number], [place] KEERTHI BLOCK 03/06/2024 18:02:19
--- OUTSIDE RECORDS SUMMARY | 2024-10-28 12:36 | XMS_ITS | Data Portability ---
Author Organization LYNN WHITE MD [facility], Main Office Address [address] [place] [address] Assessment No assessment recorded. Plan of Treatment Reminders Order Date Submit Date Provider Last Modified By Organization Details Last Modified Time Details Appointments RESEARCH FOLLOW UP 2024 11:00A Wilmer Levin MD Not available Not available Not available Lab None recorded . Referral None recorded . Procedures None recorded . Surgeries None recorded . Imaging electroc ardiogra m 2023 024 [email or web address] Main Office, [address] [place] [address], [phone], 07/15/2024 15:47:38 Medication Orders clotrima zole 10 mg klaudia 2024 025 [id number], [address] [place], [address], 10/21/2024 14:29:45 Biktarvy 50 mg-200 mg-25 mg tablet 2024 025 [id number], [address] [place], [address], 10/21/2024 14:30:45 voricona zole 200 mg/5 mL (40 mg/mL) oral suspensi on 2023 024 [id number], [address] [place], [address], 05/20/2024 11:43:08 Serostim 6 mg subcutan eous solution [facility] [address] [place], [place] [address], [place], [address], 05/20/2024 11:29:08 megestro l 625 mg/5 mL (125 mg/mL) oral suspensi on 2023 024 [id number], [address] [place], [address], 05/20/2024 11:30:41 fluconaz ole 10 mg/mL oral suspensi on 2023 024 [id number], [address] [place], [address], 04/18/2024 10:19:05 Serostim 6 mg subcutan eous solution [address] [place], [address], 04/18/2024 14:20:41 Patient TargetsNo targets recorded. Patient Instructions Encounter Date Encounter Id Patient Instructions Last Modified By Organization Details Last Modified Time 10/21/2024 [id number] Clotrimazole Oral Lozenge (CLOTRIMAZOLE LOZENGE - MUCOUS MEMBRANE (ORAL)) [email or web address] Not available 10/21/2024 14:29:44 Reason for Referral None Reported. Results Created Date Observation Date Name Description Value Unit Range Abnormal Flag Note LastModifiedBy Organization Detail LastModifiedTime 04/18/2004/18/2024 FLOWER LAINEZ performing lab Perfor angel [facility] [address] [facility] [place] [address] Medic al Direc jj wu MD Not Available [facility] [address] [place] [address], [address], 04/28/2024 10:31:16 04/18/20 24 04/21/2024 FLOWER BEACHU RE paula wu culture CANDID A GLABRA TA Not Available [facility] [address] [place], [address], 04/28/2024 10:31:16 04/18/20 24 04/18/2024 FUNGU S CULTU RE,OT HER performing lab Perfor angel [facility] [address] [facility] [place] [address] Medic al Direc jj wu MD Not Available [facility] [address] [place], [address], 04/28/2024 10:31:19 04/18/20 24 04/22/2024 FUNGU S CULTU RE,OT HER fungus culture,othe r CANDID A GLABRA TA Not Available [facility] [address] [place], [address], 04/28/2024 10:31:19 04/08/20 24 11/12/2023 elect rocar diogr am No observ ation record ed. [email or web address] Not Available 2023 15:34:46 06/18/20 24 06/04/2024 US, abdom en, compl ete No observ ation record ed. [email or web address] [facility], [place], [address], 06/18/2024 11:12:25 07/15/20 24 07/15/2024 elect rocar diogr am No observ ation record ed. [email or web address] Main Office [address] [place] [address], [phone], 07/15/2024 17:12:05 07/17/20 elect rocar diogr am No observ ation record ed. Main Office [address] [place] [address], [phone], 07/17/2024 14:15:04 Result Notes None recorded. Problems Name Problem SNOMED Code Status Onset Date Resolution Date Notes Provider Name and Address Organization Details Recorded Time Asthma 801281668 Active 2006 Asthma; snomeddesc ription: Asthma; Report Immunity to Registry: Yes; Asthma; Report Immunity to Registry: Yes; ReasonDate : 10/13/2019 ; ; Start Date : 10/13/2019 Asthma; snomeddesc ription: Asthma; Report Immunity to Registry: Yes; Not Available [facility] 4 06:58:53 Male hypogonad ism 92003484 Active 2012 Male hypogonadi sm; snomeddesc ription: Male hypogonadi sm; Report Immunity to Registry: Yes; Not Available [facility] 4 06:58:53 Diarrhea 04875682 Active 2006 Diarrhea; snomeddesc ription: Diarrhea; Report Immunity to Registry: Yes; Diarrhea, unspecifie d; snomeddesc ription: Diarrhea; Report Immunity to Registry: Yes; Not Available [facility] 4 06:58:53 Substance abuse 20306696 Active 2006 Substance abuse; snomeddesc ription: Substance abuse; Report Immunity to Registry: Yes; Notes: opiate/suad jolene/benzo ; Not Available [facility] 4 06:58:53 Human immunodef iciency virus infection 82017944 Active 1991 Human immunodefi ciency virus [HIV] disease; snomeddesc ription: Human immunodefi ciency virus infection; Report Immunity to Registry: Yes; Human immunodefi ciency virus infection; snomeddesc ription: Human immunodefi ciency virus infection; Report Immunity to Registry: Yes; Not Available [facility] 4 06:58:53 Steatosis of liver 981759244 Active 2006 Steatosis of liver; snomeddesc ription: Steatosis of liver; Report Immunity to Registry: Yes; Notes: u/s 2021; Fatty (change of) liver, not elsewhere classified ; snomeddesc ription: Steatosis of liver; Report Immunity to Registry: Yes; Notes: u/s 2021; Not Available [facility] 4 06:58:53 Herpesvir us infection 79303276 Active 2009 Herpesvira l infection, unspecifie d; snomeddesc ription: Herpes simplex; Report Immunity to Registry: Yes; Notes: HSV 1 pos serology; HSV 2 neg serology; Not Available [facility] 4 06:58:53 Fibromyos itis 95230818 Active 2006 Myalgia and myositis, unspecifie d; snomeddesc ription: Fibromyalg ia; Report Immunity to Registry: Yes; Notes: Chronic pain multiple/c hronic back pain; Not Available [facility] 4 06:58:53 Herpes simplex 97271105 Active 2009 Herpes simplex; snomeddesc ription: Herpes simplex; Report Immunity to Registry: Yes; Notes: HSV 1 pos serology; HSV 2 neg serology; Not Available [facility] 4 06:58:54 Kidney stone 63223517 Active 2001 Calculus of kidney; snomeddesc ription: Kidney stone; Report Immunity to Registry: Yes; Kidney stone; snomeddesc ription: Kidney stone; Report Immunity to Registry: Yes; Not Available [facility] 4 06:58:54 History of calculus of kidney 352249580 Active 2001 History of calculus of kidney; snomeddesc ription: History of calculus of kidney; Report Immunity to Registry: Yes; Not Available [facility] 4 06:58:54 Type B viral hepatitis 83082201 Active 2006 Type B viral hepatitis; snomeddesc ription: Type B viral hepatitis; Report Immunity to Registry: Yes; Notes: core ab pos; s ag neg; s ab neg HBV vL nondetecte d 2016; 2017; Not Available [facility] 4 06:58:54 Hyperplas ia of prostate 457523935 Active 2014 Hyperplasi a of prostate, unspecifie d, without urinary obstructio n and other lower urinary symptoms (LUTS); snomeddesc ription: Hyperplasi a of prostate; Report Immunity to Registry: Yes; Hyperplas ia of prostate; snomeddesc ription: Hyperplasi a of prostate; Report Immunity to Registry: Yes; Not Available [facility] 4 06:58:54 Anxiety 48155249 Active 1996 Anxiety; snomeddesc ription: Anxiety; Report Immunity to Registry: Yes; Not Available [facility] 4 06:58:54 Testicula r hypofunct ion 764466447 Active 2012 Other testicular hypofuncti on; snomeddesc ription: Male hypogonadi sm; Report Immunity to Registry: Yes; Not Available [facility] 4 06:58:54 Seasonal allergic rhinitis 749047278 Active 2012 Other seasonal allergic rhinitis; snomeddesc ription: Seasonal allergy; Report Immunity to Registry: Yes; Notes: hx nasal congestion ; Not Available [facility] 4 06:58:54 Onychomyc osis due to dermatoph yte 188539011 Active 2017 Tinea unguium; snomeddesc ription: Onychomyco sis; Report Immunity to Registry: Yes; Notes: feet digits; Not Available [facility] 4 06:58:55 Sleep apnea 40577142 Active 1999 Sleep apnea; snomeddesc ription: Sleep apnea; Report Immunity to Registry: Yes; Unspecifi ed sleep apnea; snomeddesc ription: Sleep apnea; Report Immunity to Registry: Yes; Not Available [facility] 4 06:58:55 Psychoact marj substance abuse 14112823 Active 2006 Other psychoacti ve substance abuse, uncomplica lucho; snomeddesc ription: Substance abuse; Report Immunity to Registry: Yes; Notes: opiate/suad jolene/benzo ; Not Available [facility] 4 06:58:55 Viral hepatitis B without hepatic coma 760186721 Active 2006 Unspecifie d viral hepatitis B without hepatic coma; snomeddesc ription: Type B viral hepatitis; Report Immunity to Registry: Yes; Notes: core ab pos; s ag neg; s ab neg HBV vL nondetecte d 2016; 2017; Not Available [facility] 4 06:58:55 Blood chemistry outside reference range 836572231 Active 2012 Other specified abnormal findings of blood chemistry; snomeddesc ription: Decreased testostero ne level; Report Immunity to Registry: Yes; Notes: hypogoandi sm; Not Available [facility] 4 06:58:55 Arthritis 4760327 Active 1998 Arthritis; snomeddesc ription: Arthritis; Report Immunity to Registry: Yes; Notes: Osteoatrth ris multiple; Not Available [facility] 4 06:58:55 History of urinary stone 216571325 Active 2001 Personal history of urinary calculi; snomeddesc ription: History of calculus of kidney; Report Immunity to Registry: Yes; Not Available [facility] 4 06:58:56 Fibromyal mika 425437735 Active 2006 Fibromyalg ia; snomeddesc ription: Fibromyalg ia; Report Immunity to Registry: Yes; Notes: Chronic pain multiple/c hronic back pain; Not Available [facility] 4 06:58:56 Lyme disease 83511709 Active 2017 Lyme disease; Report Immunity to Registry: Yes; Notes: tx cefuroxime x14 d (hx all Doxy); Not Available [facility] 4 06:58:56 Headache 33325814 Active 2008 Headache; snomeddesc ription: Headache; Report Immunity to Registry: Yes; Notes: migraine; Headache; snomeddesc ription: Headache; Report Immunity to Registry: Yes; Notes: migraine; Not Available [facility] 4 06:58:56 Hypertens marj disorder 36778110 Active 2017 Hypertensi ve disorder; snomeddesc ription: Hypertensi ve disorder; Report Immunity to Registry: Yes; Not Available [facility] 4 06:58:56 Arthropat hy 280820406 Active 1998 Arthropath y, unspecifie d, site unspecifie d; snomeddesc ription: Arthritis; Report Immunity to Registry: Yes; Notes: Osteoatrth ris multiple; Not Available [facility] 4 06:58:56 Essential hypertens ion 74559834 Active 2017 Essential (primary) hypertensi on; snomeddesc ription: Hypertensi ve disorder; Report Immunity to Registry: Yes; Not Available [facility] 4 06:58:57 Testoster one level below reference range 236660006 Active 2012 Decreased testostero ne level; snomeddesc ription: Decreased testostero ne level; Report Immunity to Registry: Yes; Notes: hypogoandi sm; Not Available [facility] 4 06:58:57 Insomnia 371167507 Active 1996 Insomnia; Report Immunity to Registry: Yes; Not Available [facility] 4 06:58:57 Anxiety state 021755146 Active 1996 Anxiety state, unspecifie d; snomeddesc ription: Anxiety; Report Immunity to Registry: Yes; Not Available [facility] 4 06:58:57 Onychomyc osis 114073674 Active 2017 Onychomyco sis; snomeddesc ription: Onychomyco sis; Report Immunity to Registry: Yes; Notes: feet digits; Not Available [facility] 4 06:58:57 Chronic hepatitis C 100241081 Active 2006 Chronic hepatitis C without mention [...] neg 2015;2017; 12/2021 F2 ; Not Available [facility] 4 06:58:57 Depressiv e disorder 79767289 Active 1996 Depressive disorder, not elsewhere classified ; snomeddesc ription: Depressive disorder; Report Immunity to Registry: Yes; Depressiv e disorder; snomeddesc ription: Depressive disorder; Report Immunity to Registry: Yes; Not Available [facility] 4 06:58:58 Seasonal allergy 708873015 Active 2012 Seasonal allergy; snomeddesc ription: Seasonal allergy; Report Immunity to Registry: Yes; Notes: hx nasal congestion ; Not Available [facility] 4 06:58:58 Loss of appetite 52114790 Active 2012 Anorexia; snomeddesc ription: Loss of appetite; Report Immunity to Registry: Yes; Loss of appetite; snomeddesc ription: Loss of appetite; Report Immunity to Registry: Yes; Not Available [facility] 4 06:58:58 Seizure 45861906 Active 2000 Seizure; snomeddesc ription: Seizure; Report [...] Report Immunity to Registry: Yes; Not Available [facility] 4 06:58:58 Problem Notes None recorded. Procedures Surgical History None recorded. Imaging Results Imaging Date Name Status LastModified by Organization Details LastModified Time 11/12/2023 electrocardiogram completed [email or web address] Informa tion not available 04/08/2024 15:34:46 06/04/2024 US, abdomen, complete completed [email or web address] [place], [address], 06/18/2024 11:12:25 07/15/2024 electrocardiogram completed [email or web address] Main Of [address], [address], 07/15/2024 17:12:05 07/17/2024 electrocardiogram completed [email or web address] Main Of [address], [address], 07/17/2024 14:15:04 Procedure Notes None recorded. Medical Equipment None Reported. Allergies Allergen ID Allergen Name Allergen Category Reaction Reaction Severity Criticality Documentation Date Start Date Code Code System Note Provider Name and Address Organization Details Recorded Time 281 Reglan medicatio n Not available Not available Not available 10/31/20232012 9230 RxNorm Comme nt: adver se_ev ent_t ype: 51397 8002; ; Not Available [facility] 4 06:50:47 715 Motrin medicatio n Not available Not available Not available 10/31/2023201248 8 RxNorm Comme nt: adver se_ev ent_t ype: 93385 8002; ; Not Available [facility] 4 06:50:47 716 doxycycli ne Not available Not available Not available Not available 10/31/20232017 3640 RxNorm Comme nt: adver se_ev ent_t ype: 60168 8002; ; Not Available [facility] 4 06:50:47 Medications Name Sig Start [...] t Available glycopyrr olate 1 mg tablet TOME BAHMAN TABLETA VIA G-TUBE DOS VECES AL D A active Not [...] t Available clotrimaz ole 10 mg klaudia Take 1 tablet twice a day by oral route for 30 days, for thrush. 2024 active Not Available Not Available Not Avai lable doxycycli ne monohydra te 25 mg/5 mL [...] Available clonazepa m 1 mg tablet TOME BAHMAN TABLETA POR V A ORAL TODOS LOS [...] yordy; Not Available Not Available Not Available amlodipin e 5 mg tablet TOME 1 TABLETA POR V A ORAL TODOS LOS D active Not Available Not Available No t Available prochlorp erazine maleate 10 mg tablet 10 mg Quantity : 90; 3 refill(s ) 09/27 completed Frequenc y: tid; VACCINE_ IND: no; SU_FULL_ NAME: Cheryl Palomo yordy; Not Available Not Available Not Available ciproflox [...] yordy; Not Available Not Available Not Available aspirin 81 mg tablet,de layed release TAB 81MG EC; Quantity : 30; Duration : 30; 0 refill(s ) 11/11 completed Duration : 30; VACCINE_ IND: no; Not Available Not Available Not Available doxycycli ne monohydra te 100 mg tablet active Not Available Not Available Not Available tramadol 50 mg tablet TAKE 1 TABLET (50 MG) BY MOUTH EVERY 12 (TWELVE) HOURS IF NEEDED FOR SEVERE PAIN FOR [...] ascorbic acid (vitamin C) 250 mg tablet TOME 1 TABLETA POR V [...] yordy; Not Available Not Available Not Available oseltamiv ir 75 mg capsule TAKE ONE CAPSULE BY MOUTH EVERY 12 HOURS FOR 5 DAYS 10/13 completed Duration : 5; VACCINE_ IND: no; Not Available Not Available Not Available ferrous sulfate 325 mg (65 mg iron) tablet 325 mg Quantity : 90; 3 refill(s ) 09/25 completed Frequenc y: tid; VACCINE_ IND: no; SU_FULL_ NAME: Cheryl Palomo yordy; Not Available Not Available Not Available Banophen [...] yordy; Not Available Not Available Not Available diclofena c sodium 75 mg tablet,de layed release TAB 75MG DR; Quantity : 60; Duration : 30; 0 refill(s ) 02/07 completed Duration : 30; VACCINE_ IND: no; Not Available Not Available Not Available folic acid 1 mg tablet TAKE ONE TABLET DAILY 09/25 completed VACCINE_ IND: no; SU_FULL_ NAME: Cheryl Palomo yordy; Not Available Not Available Not Available Liquid Nutrition oral 0 Quantity : 83822; Duration : 30; 0 refill(s ) 09/30 [...] Not Available No t Available albuterol sulfate HFA 90 mcg/actua tion aerosol inhaler TOME DOS INHALACI ONES POR V A ORAL CADA SEIS HORAS CUANDO SEA NECESARI O PARA LA SIBILANC IA active Not Available Not Available No t [...] scales; Not Available Not Available Not Available esomepraz ole magnesium 20 mg capsule,d [...] 12; Duration : 60; 0 refill(s ) 02/223 completed Duration : 60; VACCINE_ IND: no; [...] Not Available Not Available No t Available Rosalinao A-C-Y-W-1 35-Dip (PF) 10 mcg-5 mcg/0.5 mL [...] Not Available Not Available Not Available Ibeth n DM To Go 5cc p qid as needed 10/12 completed VACCINE_ IND: no; SU_FULL_ NAME: Cheryl sclaes; Not Available Not Available Not Available buprenorp [...] Not Available Not Available Not Available Flulaval 3864-9202 45 mcg (15 mcg x 3)/0.5 mL [...] Available Not Available Eliquis 5 mg tablet TOME 1 TABLETA POR [...] 2024 active Not Available Not Available Not [facility] 60 mcg (15 mcg x 4)/0.5 mL IM suspensio n quadriva lent Quantity : ; 0 refill(s ) 2017 active VACCINE_ IND: yes; VACCINE_ NAME: influenz a, injectab le, quadriva lent; SU_FULL_ NAME: Cheryl scales; VIS_DATE : 19:25:45 .0; Not Available Not Available Not Available Evenity 210 mg/2.34 mL (105 mg/1.17 mL x 2) subcutane ous syringe active Not Available Not Available Not Available [facility] 60 mcg (15 mcg x 4)/0.5 mL intramusc ular susp. quadriva lent Quantity : ; 0 refill(s ) 2018 active VACCINE_ IND: yes; VACCINE_ NAME: influenz a, injectab le, quadriva lent; SU_FULL_ NAME: Cheryl scales; VIS_DATE : 05:00:00 .0; Not Available Not Available Not Available [facility] 60 mcg (15 mcg x 4)/0.5 [...] Pneumoco ccal conjugat e PCV20, polysacc haride [id number] conjugat e, adjuvant , PF; Not Available Not Available Not Available Vitals Date Recorded Body height Heart rate Body temperature Respiratory rate Body mass index (BMI) Body weight Systolic blood pressure Diastolic blood pressure Provider Name and Address Organization Details Last Updated DateTime 4 162.56 cm 82 /min 97.7 [degF] 18 /min 21.3 kg/m2 32574.4 5 g 123 mm[Hg] 85 mm[Hg] Jerome LEVIN MD [facility] 4 14:10:17 Date Recorded Body height Heart rate Respiratory rate Body temperature Body mass index (BMI) Body weight Systolic blood pressure Diastolic blood pressure Provider Name and Address Organization Details Last Updated DateTime 4 162.56 cm 109 /min 20 /min 97.2 [degF] 21.1 kg/m2 31826.8 6 g 111 mm[Hg] 90 mm[Hg] Jerome LEVIN MD [facility] 4 12:07:11 Date Recorded Body height Heart rate Respiratory rate Body temperature Body mass index (BMI) Body weight Systolic blood pressure Diastolic blood pressure Provider Name and Address Organization Details Last Updated DateTime 4 162.56 cm 89 /min 16 /min 98 [degF] 20.6 kg/m2 61240.0 8 g 123 mm[Hg] 90 mm[Hg] Jerome LEVIN MD [facility] 4 14:28:38 Date Recorded Body height Provider Name an d Address Organization Details Last Updated DateTime 07/15/2024 162.56 cm Jerome LEVIN MD [facility] 07/15/2024 15:22:29 Date Recorded Body temperature Body mass index (BMI) Body weight Respiratory rate Heart rate Systolic blood pressure Diastolic blood pressure Provider Name and Address Organization Details Last Updated DateTime 4 98.7 [degF] 20.6 kg/m2 75544.0 8 g 20 /min 87 /min 120 mm[Hg] 80 mm[Hg] Cheryl Levin MD [address] [facility], [facility] [place], [address], LYNN LEVIN MD [facility] 4 15:46:02 Date Recorded Heart rate Body temperature Body weight Systolic blood pressure Diastolic blood pressure Provider Name and Address Organization Details Last Updated DateTime 10/21/2024 98 /min 98.2 [degF] 20534.2 6 g 118 mm[Hg] 97 mm[Hg] Lexis LEVIN MD [facility] 5 12:04:23 Social History None recorded. Functional Status None recorded. Mental Status None recorded. Family History Nothing Reported Notes:High cholesterol, Resp onse Property: Yes; , Cancer, other unspecified, Response Property: Yes; , Diabetes, Response Property: Yes; Medical History No medical history recorded. Immunizations Vaccine Type Date Status Note Provider Nam e and Address Organization Details Recorded Time Meningococcal MCV4O 9 completed Not Available [facility] 10/31/2023 06:54:49 zoster live 9 completed Not Available [facility] 10/31/2023 06:54:50 Influenza, split virus, quadrivalent, preservative 9 completed Not Available [facility] 10/31/2023 06:54:50 Influenza, split virus, quadrivalent, preservative 8 completed Not Available [facility] 10/31/2023 06:54:50 Influenza, split virus, quadrivalent, preservative 0 completed Not Available [facility] 10/31/2023 06:54:50 Past Encounters Encounter ID Performer Location Encounter Start Date Encounter Closed Date Diagnosis/Indication Diagnosis SNOMED-CT Code Diagnosis ICD10 Code Diagnosis Note [id number] Krista Castellano Main Office [address] [place] [address] 05/25/2023 09:48:40 06/27/2023 09:16:16 Human immunodeficiency virus infection 99178075 B20 HIV. Continue Biktarvy 1 tab po [...] /Tivicay.. safe sex. plan of care reviewed [id number] Cheryl Levin MD Main Office [address] [place] [address] 08/24/2023 09:33:00 08/24/2023 10:46:09 Human immunodeficiency virus infection 85813678 B20 HIV. Continue Biktarvy 1 tab po qd. wants to keep same regimen. pt aware of TAF free options and injectable s.. pt has trial consent; interested in studies.xenia crawford ordered.co mpliance reviewed to prevent viral resistance , keep viral load suppressio n and prevent viral transmissi onU=U reviewed. safe sex. condom use reviewed to prevent STi including HCVpt aware of PreP availabili ty: Apretude IM/Descovy /Tivicay.s afe sex.labs Septemberlan of care reviewed [id number] Cheryl Levin MD Main Office [address] [place] [address] 11/12/2023 11:34:42 11/16/2023 15:00:47 Human immunodeficiency virus infection 91184521 B20 HIV.Contin ue Biktarvy 1 tab po qd.U=Upt aware of PreP availabili ty.condom use.plan of care reviewed Adult [facility] th examination 092434138 Z00.00 [id number] Cheryl Levin MD Main Office [address] [place] [address] 11/21/2023 10:59:43 11/23/2023 14:55:21 [id number] Cheryl Levin MD Main Office [address] [place] [address] 01/14/2024 09:27:39 01/16/2024 13:51:41 [id number] Cheryl Levin MD Main Office [address] [place] [address] 01/16/2024 10:24:39 01/16/2024 11:50:10 Human immunodeficiency virus infection 83011959 B20 HIV.Contin ue Biktarvy 1 tab po qd.U=Upt aware of PreP availabili ty.condom use.labs todayplan of care reviewed Candidiasis of mouth 797 65035 B37.0 nystatin 5cc po qid x 14 days. swish and spit.call with any side effects.ba cterial/fu ngal swab obtained. 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 [id number] Cheryl Levin MD Main Office [address] [place] [address] 02/14/2024 12:00:04 02/14/2024 12:24:19 Human immunodeficiency virus infection 75922730 B20 HIV.Contin ue Biktarvy 1 tab po qd.U=Upt aware of PreP availabili ty.DoxyPEP reviewedco ndom use.labs todayplan of care reviewed Methicilli n resistant Staphylococcus aureus infection 753782233 A49.02 swab culture 01/2024 Candidiasi s of the esophagus 23862126 B37.81 sandy glabratafl uconazole 100mg po qd x 14 dayscall with any side effects. Weight loss 45091479 R63 .4 contributi ng factor sandy, MRSA, HIV among othermight benefit from Serostim.w ill review with himG tube [id number] Cheryl Levin MD Main Office [address] [place] [phone] 02/21/2024 11:08:05 02/21/2024 12:09:56 Human immunodeficiency virus infection 24981796 B20 HIV.Contin ue Biktarvy 1 tab po qd.complia nce reviewedU= Upt aware of PreP availabili ty.DoxyPEP reviewedco ndom use.labs todayplan of care reviewed Candidiasi s of the esophagus 20763371 B37.81 sandy glabratato complete fluconazol e 100mg po bid x 14 days: (10mg/ml) 10ml by G tube bidcall with any side effects. Methicilli n resistant Staphylococcus aureus infection 214635218 A49.02 swab culture urr ently on Bactrim oral suspension (200mg- 40mg/5ml) since 02/15-20ml q 12 hrs G tube x 10 days Cachexia a ssociated with AIDS 596703195 B20 R64 weight loss. frail. progressin g.contribu ting factor sandy, MRSA, HIV among other. G tubeSerost im 6mg sq qd will be prescribed with the goal of helping w weight gain, increase muscle mass gain, and increase enduranceh e has visiting nurse who could assist with daily injections . [id number] Cheryl Levin MD Main Office [address] [place] [address] 02/25/2024 10:24:53 02/25/2024 11:09:27 Human immunodeficiency virus infection 95361720 B20 HIV.Contin ue Biktarvy 1 tab po qd.complia nce reviewedU= Ucondom use.labs todayplan of care reviewed Candidiasi s of the esophagus B37.81 sandy glabratawi ll continue fluconazol e 200 mg po qd x 14 days: (10mg/ml) 10ml by G tube QD;will on next appointmen t for further tx va suppressio n tx.call with any side effects. Cachexia a ssociated with AIDS 538328094 B20 R64 weight loss. frail. progressin g.approved Serostim 6mg sq qd; awaiting delivery to the office. will be prescribed with the goal of helping w weight gain, increase muscle mass gain, and increase enduranceh e has visiting nurse who could assist with daily injections .ensure tidmegace 625 mg qd. Methicilli n resistant Staphylococcus aureus infection 744076885 A49.02 swab culture 01/2024will complete 10 days of Bactrim oral suspension (200mg- 40mg/5ml) since 02/15-20ml q 12 hrs G tube on 02/27/24 [id number] Cheryl Levin MD Main Office [address] [place] [address] 03/14/2024 10:24:00 03/14/2024 10:29:25 Cachexia associated with AIDS 887174900 R64 B20 gained 2 pounds. probably improved sandy esophagiti s 2nd to inhaled steroids.S Tart Serostim 6mg s/c qd abdomen. first dose administer ed today. Tolerated well; goalis to increase weight, endurance and muscle massHe will have CAR WRECKER and nurse help with daily injections .potential side effects reviewed.t o call with any concernshe will molded goods spot picker Megace today, and start it as well(G tube) qd to increase apetitte Human immunodeficiency virus infection 67086831 B20 HIV.Contin ue Biktarvy 1 tab po qd.complia nce reviewed Candidiasi s of the esophagus B37.81 sandy glabratawi ll continue 2 more weeks of fluconazol e 200 mg po qd x 14 days: (10mg/ml) 10ml by G tube QD;might benefit from qw suppressio n tx.call with any side effects. [id number] Cheryl Levin MD Main Office [address] [place] [address] 04/18/2024 09:52:00 04/18/2024 11:19:01 Cachexia associated with AIDS 170015105 R64 B20 124 lbs. gained weightcont inue Serostim 6mg s/c qd abdomen. goalis to increase weight, endurance and muscle masscontin ue Megace G tube qdCNA and nurse helping with compliance and tx.potenti al side effects reviewed.t o call with any concerns Human immunodeficiency virus infection 65830189 B20 HIV.Contin ue Biktarvy 1 tab po qd.compljordon copelande reviewedla bs today Candidiasi s of the esophagus 52801265 B37.81 sandy glabratawi ll continue fluconazol e 200 (10ml) mg G tube qw for suppressio n tx.call with any side effects. Aspiration pneumonia 422 203104 J69.0 get discharge summaryon antibiotic ;eat standing or sitting; and not [place] [id number] Cheryl Levin MD Main Office [address] [place] [address] 05/20/2024 10:17:53 05/20/2024 12:44:49 Cachexia associated with AIDS 518317188 R64 B20 continue Serostim 6mg s/c qd abdomen. goal is to increase weight, endurance and muscle masscontin ue Megace G tube qd 5cc qdCNA and nurse helping with compliance and tx.potenti al side effects reviewed.t o call with any concerns Human immunodeficiency virus infection 15454657 B20 HIV.Contin ue Biktarvy 1 tab po qd.complia nce reviewedla bs today Candidiasi s of the esophagus 97120124 B37.81 sandy glabrataho ld fluconazol e for nowSTART 1 tab po bid x 21 says for esophageal sandy glabrata.c all with any side effects. [id number] Cheryl Levin MD Main Office [address] [place] [address] 06/18/2024 10:10:09 06/18/2024 11:12:33 Cachexia associated with AIDS 659266645 R64 B20 continue Serostim 6mg s/c qd abdomen. goal is to increase weight, endurance and muscle massCNA and nurse helping with compliance and tx.megace on holdpotent ial side effects reviewed.t o call with any concerns Human immunodeficiency virus infection 00955829 B20 HIV.Contin ue Biktarvy 1 tab po qd.padmini hoffman reviewedla bs today Inflammato ry disease of liver 675364010 K75.9 Suspect 2nd to concomitan t medication s. ongoingdo not re-start fluconazol e nor megacenega tive infectious and non-infect ious workupto call or ER if jaundice, abd pain, n/v/d marce huertas History of calculus of kidney 294039339 Z87.442 u/s 05/[address] scan 02/2024hydr ation Aspiration pneumonia 422 440499 J69.0 s/p aspiration on CT AngioNPO per instructio n given to him in hospital; nutrition by G tubes/p (ceftriaxo ne,Azithro ,Flagyl while in Hospital;d ischarged on azithro and cefpodoxim e x 3 days which he completed. leg elevationa void sedating meds as much as possible Deep venou s thrombosis of lower extremity 247830613 I82.409 left lower extremity doppler showed DVT of gastrocnem ius vein;on tx w w Eliquis bid . Pulmonary embolism [address] Angio was positive for Acute lobar PEs/p heparin; ongoing Eliquis bidmed list reviewed.n o drug use for years. not on maintenanc e tx.denies current ETOH use. 22766 Cheryl Levin MD Main Office [address] [place] [address] 07/15/2024 15:10:10 07/15/2024 15:45:30 Cachexia associated with AIDS 513245076 R64 B20 continue Serostim 6mg s/c qd abdomen. goal is to increase weight, endurance and muscle masspotent ial side effects reviewed.t o call with any concerns Human immunodeficiency virus infection 11427220 B20 HIV.Contin ue Biktarvy 1 tab po qd.padmini hoffman reviewedla bs Candidiasi s of the esophagus 64432875 B37.81 on clotrimazo le. swish and spit qd Medication monitoring 39 9517099 Z51.81 01312 Cheryl Levin MD Main Office [address] [place] [address] ЮЛИЯ, LYNN [address] 10/21/2024 12:22:54 10/21/2024 16:48:51 Cachexia associated with AIDS 864723175 R64 B20 improvedco ntinue Serostim 6mg s/c qd abdomen. goal is to increase weight, endurance and muscle masspotent ial side effects reviewed.m ay start decreasing dose in 1-2 months if further weight gainon Boost protein shakesto call with any concerns Human immunodeficiency virus infection 89704541 B20 HIV.Contin ue Biktarvy 1 tab po qd.complia nce reviewedla bs Candidiasi s of the esophagus 33957593 B37.81 on clotrimazo le. swish and spit qd/BID PRN Health Concerns Section Related Observation LastModified by Organization Detai ls LastModified Time None Recorded Concern Status LastModified by Organization Details LastModified Time None Recorded Advance Directives Directive None Recorded Payers Encounter Date Sequence Insurance Name Policy Number Policy Perry Covered Member ID Perry Member ID Guarantor Name 04/18/2024 1 [employer] - DOS ON OR AFTER 2022 - MEDICARE [place]AGE [place]/ADV ANTAGE - PPO) [facility] [id number] [facility] 05/20/2024 1 [employer] - DOS ON OR AFTER 2022 - [place]/ADV ANTAGE - PPO) [facility] [id number] [facility] 06/18/2024 1 [employer] - DOS ON OR AFTER 2022 - [place]/ADV ANTAGE - PPO) [facility] [id number] [facility] 07/15/2024 1 [employer] - DOS ON OR AFTER 2022 - [place]/ADV ANTAGE - PPO) [facility] [id number] [facility] 10/21/2024 1 [employer] - DOS ON OR AFTER 2022 - [place]/ADV ANTAGE - PPO) Benjamin Juan David [id number] [facility] Notes Date Note Type Note Provider Name and Address Organization Details Recorded Time 04/18/2024 text/html HIVOn Biktarvy 1 tab po [...] ETOh use.reports was Hospitalized 3 days at [facility] this week with pneumonia 04/15- 04/17. discharge summary not available at time of visit. reports use of antibiotic; he says he was drinking shake in his bed and choked on it. dsicharge summery to be obtained. feels well. no SOB. no cough03/2024 HIV VL nondetctedHIV VL nondetetcted01/2024 HIV VL nondetcetd;eGFR=76;AST /ALT wnl;11/2023 RS0=312; HIV VLnondetceted; no infections.01/2022 ZG8=057; HIV VL nondetceted; eGFR>60; ALt/AST wnl; syphilis neg; GC/chlamydia neg Cheryl Levin MD [address] [place] [address], [phone], LYNN - CHERYL LEVIN MD [facility] 04/18/2024 14:20:48 05/20/2024 text/html HIVOn Biktarvy [...] VL nondetetcted01/2024 HIV VL nondetcetd;eGFR=76;AST /ALT wnl;11/2023 IS0=905; HIV VLnondetceted; no infections.01/2022 WN9=220; HIV VL nondetceted; eGFR>60; ALt/AST wnl; syphilis neg; GC/chlamydia neg Cheryl Levin MD [address] [place] [address], [phone], LYNN - CHERYL LEVIN MD [facility] 05/20/2024 12:17:47 06/18/2024 text/html HIVOn Biktarvy 1 tab po qd.reports daily compliance. denies missing dose.resolved thrush. hx recurrence. fluconazole and voriconazole on hold. Pt reports was hospitalized at [facility] 06/10/24-06/13/24 ( got to ER on [...] VL nondetetcted01/2024 HIV VL nondetcetd;eGFR=76;AST /ALT wnl;11/2023 RB7=221; HIV VLnondetceted; no infections.01/2022 YZ0=654; HIV VL nondetceted; eGFR>60; ALt/AST wnl; syphilis neg; GC/chlamydia neg Cheryl Levin MD [address] [place] [address], [phone], LYNN LEVIN MD [facility] 06/18/2024 18:19:56 07/15/2024 text/html HIVOn Biktarvy 1 tab po qd.reports daily compliance. denies missing dose.thrush on/off: recurrence. on clotrimazole daily .stable weight 120lbshe says he is eating more and apetitte has improvedfeels strongergetting serostim dailyno hospitalizations since he was last seenmed list reviewed.On Eliquis and enoxaparin. recent PE/DVT.VL nondetected03/2024 HIV VL nondetctedHIV VL nondetetcted01/2024 HIV VL nondetcetd;eGFR=76;AST /ALT wnl;11/2023 FY3=050; HIV VLnondetceted; no infections. Cheryl Levin MD [address] [place] [address], [phone], LYNN LEVIN MD [facility] 07/15/2024 15:47:48 10/21/2024 text/html HIVOn Biktarvy 1 tab po qd.reports daily compliance. denies missing dose.thrush on/off: recurrence. on clotrimazole daily, although missed some doses because ran out of med.gaining weight: 120lbs ---149lbshe says he is eating more and apetitte has improvedfeels strongergetting serostim dailyno side effects.no hospitalizations since he was last seenmed list reviewed.On Eliquis and enoxaparin. recent PE/DVT.VL nondetected able to swallow and Reports there is plan to remove G Tube on November 2024. He is not getting G t ube feedings for a month or so; they were discontinued. denies aspiration Pt reports was disgnosed w Osteoporsis 2 days ago. Evenity sq QM was prescribed; awaiting insurance approval; If approved, pt will notify site start date and confirm medication. 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 Cheryl Levin MD [address] [place] [address], [phone], LYNN - CHERYL LEVIN MD [facility] 10/21/2024 14:34:28
--- OUTSIDE RECORDS SUMMARY | 2024-10-28 12:36 | XMS_ITS ---
Demographics Address [address] [facility] [address] [place] [address] Preferred Language es Marital Status Unknown Mandaeism Affiliation Unknown Race White Ethnic Group Not or Lati no Author Organization [facility] Address [address] [place] [address] Care Team Providers Care Ethics Manager Name Role Phone Terese Rivera Primary Care Provider Pepe Dangelo Unavailable [phone] ALLERGIES Allergen (clinical drug ingredient) Drug/Non Drug Allergy documented on EMR Reaction Allergy Type Onset Date Status Penicillin Unknown Drug Allergy Active Motrin Unknown Drug Allergy Active codeine Codeine Sulfate Unknown Drug Allergy A ctive REASON FOR VISIT Patient presents today for a PATIENT RECEIVED RECALL LETTER MEDICATIONS Medication SIG (Take, Route, Frequency, Duration) Notes Start Date End Date Status Eliquis 5 MG TOME 1 TABLETA POR V A ORAL DOS VECES AL D A Oral for 30 Active Gabapentin 600 MG Oral for 30 Active traMADol HCl 50 MG Oral for 14 Active Serostim 6 MG Subcutaneous for 28 Active Biktarvy 50-200-25 MG TOME 1 TABLETA POR V A ORAL TODOS LOS D FOR 30 DAYS Oral for 30 Active Albuterol Sulfate HFA 108 (90 Base) MCG/ACT TOME DOS INHALACIONES POR V A ORAL CADA SEIS HORAS CUANDO SEA NECESARIO PARA LA SIBILANCIA Inhalation for 25 Active KlonoPIN 2 MG 1 tablet Orally TID Active Dilantin 100 MG 1 capsule Orally TID for 30 day(s) Active Vitamin C 250 MG TOME 1 TABLETA POR V A ORAL TODOS LOS D Oral for 90 Active Glycopyrrolate 1 MG Oral for 90 Active Multi Vitamin/Minerals Active Tylenol Active Brimonidine Tartrate-Timolol 0.2-0.5 % INSTILL 1 DROP INTO BOTH EYES TWICE A DAY Ophthalmic for 50 Active Calcium 600/Vitamin D3 600-20 MG-MCG Oral for 90 Active Ferrous Gluconate 324 (38 Fe) MG Oral for 90 Active Propranolol HCl ER 120 MG Oral for 90 Active clonazePAM 1 MG TOME BAHMAN TABLETA POR V A ORAL TODOS LOS D Oral for 30 Active amLODIPine Besylate 5 MG TOME 1 TABLETA POR V A ORAL TODOS LOS D Oral for 87 Active Ventolin HFA 108 (90 Base) MCG/ACT TOME DOS INHALACIONES POR V A ORAL CADA SEIS HORAS CUANDO SEA NECESARIO PARA LA SIBILANCIA Inhalation for 25 Active Mirtazapine 30 MG TAKE 2 TABLETS (60 M G) BY MOUTH AT BEDTIME. Oral for 34 Active risperiDONE 3 MG Oral for 34 A ctive Pilocarpine HCl 5 MG TOME 1 TABLETA POR VIA ORAL ITALO VECES AL CHI 90 Oral for 90 Active SOCIAL HISTORY Tobacco Use: Social History Observation Description Date Details (start date - stop date) Never Smoker NA - NA Sex Assigned At : Social History Observation Description Sex Assigned At Unknown Tobacco Use/Smoking Question Answer Notes Patient is a nonsmoker Alcohol Screen Question Answer Notes Did you have a drink containing alcohol in the p ast year? No Points 0 Interpretation Negative PROBLEMS Problem Type ICD Code Onset Dates Problem Status W/U Status Risk SNOMED Code Notes Problem PEG (percutaneous endoscopic gastrostomy) adjustment/repla cement/removal (Z43.1) Active confirmed VITAL SIGNS BMI 23.72 kg/m2 10/09/2024 Blood pressure systolic 00 mm Hg 10/09/19 25 Blood pressure diastolic 00 mm Hg 025 Height 66 in 10/09/2024 Weight 147 lbs 10/09/2024 Encounters Encounter Location Date Provider Diagnosis [facility] [address] [place] [phone] 10/09/2024 Pepe Stephenson Dysphagia R13.10 ; Unspecified protein-calorie malnutrition E46 and PEG (percutaneous endoscopic gastrostomy) adjustment/replacement /removal Z43.1 ASSESSMENTS Encounter Date Diagnosis Assessment Notes Treatment Notes Treatment Clinical Notes 10/09/2024 Dysphagia (ICD-10 - R13.10) Once we have the results of the [facility] GI series from 10/2024 and see how he does off the Gtube feeding we will probably remove the Gtube in January or so. He can stop all feedings through the Gtube as of now and monitor his weight with just oral intake. Also, hopefully he will be off the Eliquis by December or January. If he isn't off it before the next visit let me know so we can make adjustments before taking the Gtube out in the office. 10/09/2024 Unspecified protein-calorie malnutrition (ICD-10 - E46) 10/09/2024 PEG (percutaneous endoscopic gastrostomy) adjustment/replacem ent/removal (ICD-10 - Z43.1) PLAN OF TREATMENT Treatment Notes Assessment Notes Dysphagia Once we have the res ults of the [facility] GI series from 10/2024 and see how he does off the Gtube feeding we will probably remove the Gtube in January or so. He can stop all feedings through the Gtube as of now and monitor his weight with just oral intake. Also, hopefully he will be off the Eliquis by December or January. If he isn't off it before the next visit let me know so we can make adjustments before taking the Gtube out in the office. Next Appt Details Follow Up: January or February for o ffice Gtube removal, Reason: Provider Name:Pepe Stephenson , 02/12/2025 11:00:00 AM, [address] [facility], [address], [place], [address], Progress Notes * Examination Category Sub-Category Detail Notes General Examination GENERAL APPEARANCE: pleasant , thin, well developed, alert male in no acute distress EYES: sclera non-icteric NECK/THYROID: no cervical lymphade nopathy, neck supple HEART: S1, S2 normal LUNGS: clear to auscultatio n bilaterally ABDOMEN: normal bowel sounds, no guarding or rigidity, no hepatosplenomegaly, no masses palpable, soft, nontender, nondistended. The Gtube site appears clean NEUROLOGIC: alert and oriented SKIN: nonjaundiced, no spi carlito angiomata. EXTREMITIES: no edema ORAL CAVITY: mucosa moist
--- OUTSIDE RECORDS SUMMARY | 2024-10-28 12:36 | XMS_ITS ---
Demographics Address [address] [facility] [address] [place] [address] Preferred Language es Marital Status Unknown Taoist Affiliation Unknown Race White Ethnic Group Not or Lati no Author Organization [facility] Address [address] [place] [address] Care Team Providers Care Waste Duster Name Role Phone Terese Rivera Primary Care Provider Pepe Dangelo Unavailable [phone] REASON FOR VISIT Pt no show Encounters Encounter Location Date Provider Diagnosis [facility] [address] [place] [address] 12/14/2023 Pepe Stephenson PLAN OF TREATMENT Next Appt Details Provider Name:Pepe Stephenson , 02/12/2025 11:00:00 AM, [address], [address], [place], [address],
--- OUTSIDE RECORDS SUMMARY | 2024-10-28 12:36 | XMS_ITS | Patient Health Record ---
Demographics Address [address] [facility] [address] [place] [address] Preferred Language es Marital Status Unknown Quaker Affiliation Unknown Race White Ethnic Group Not or Lati no Author Organization [facility] Address [address] [place] [address] Care Team Providers Care Caddie Name Role Phone Terese Rivera Primary Care Provider Pepe Dangelo Unavailable [phone] ALLERGIES Allergen (clinical drug ingredient) Drug/Non Drug Allergy documented on EMR Reaction Allergy Type Onset Date Status Penicillin Unknown Drug Allergy Active Motrin Unknown Drug Allergy Active codeine Codeine Sulfate Unknown Drug Allergy A ctive REASON FOR REFERRAL No Information MEDICATIONS Medication SIG (Take, Route, Frequency, Duration) Notes Start Date End Date Status Albuterol Sulfate HFA 108 (90 Base) MCG/ACT TOME DOS INHALACIONES POR V A ORAL CADA SEIS HORAS CUANDO SEA NECESARIO PARA LA SIBILANCIA Inhalation for 25 Active KlonoPIN 2 MG 1 tablet Orally TID Active Ventolin HFA 108 (90 Base) MCG/ACT TOME DOS INHALACIONES POR V A ORAL CADA SEIS HORAS CUANDO SEA NECESARIO PARA LA SIBILANCIA Inhalation for 25 Active Dilantin 100 MG 1 capsule Orally TID for 30 day(s) Active Mirtazapine 30 MG TAKE 2 TABLETS (60 M G) BY MOUTH AT BEDTIME. Oral for 34 Active Eliquis 5 MG TOME 1 TABLETA POR V A ORAL DOS VECES AL D A Oral for 30 Active Calcium 600/Vitamin D3 600-20 MG-MCG Oral for 90 Active Gabapentin 600 MG Oral for 30 Active Ferrous Gluconate 324 (38 Fe) MG Oral for 90 Active Vitamin C 250 MG TOME 1 TABLETA POR V A ORAL TODOS LOS D Oral for 90 Active Propranolol HCl ER 120 MG Oral for 90 Active Glycopyrrolate 1 MG Oral for 90 Active clonazePAM 1 MG TOME BAHMAN TABLETA POR V A ORAL TODOS LOS D Oral for 30 Active Multi Vitamin/Minerals Active Pilocarpine HCl 5 MG TOME 1 TABLETA POR VIA ORAL ITALO VECES AL CHI 90 Oral for 90 Active Tylenol Active traMADol HCl 50 MG Oral for 14 Active Serostim 6 MG Subcutaneous for 28 Active Brimonidine Tartrate-Timolol 0.2-0.5 % INSTILL 1 DROP INTO BOTH EYES TWICE A DAY Ophthalmic for 50 Active Biktarvy 50-200-25 MG TOME 1 TABLETA POR V A ORAL TODOS LOS D FOR 30 DAYS Oral for 30 Active amLODIPine Besylate 5 MG TOME 1 TABLETA POR V A ORAL TODOS LOS D Oral for 87 Active risperiDONE 3 MG Oral for 34 A ctive SOCIAL HISTORY Sex Assigned At : Social History Observation Description Sex Assigned At Unknown PROBLEMS Problem Type ICD Code Onset Dates Problem Status W/U Status Risk SNOMED Code Notes Problem Unspecified protein-calorie malnutrition (E46) Active confirmed Protein calorie malnutrition (203036160) Problem Anorexia (R63.0) Active confirmed Anore tracie (13396656) Problem Dysphagia (R13.10) Active confirmed Dysphagia (27385736) Problem PEG (percutaneous endoscopic gastrostomy) adjustment/repla cement/removal (Z43.1) Active confirmed VITAL SIGNS Blood pressure diastolic 00 mm Hg 10/09/2024 Height 66 in 10/09/2024 Blood pressure systolic 00 mm Hg 10/09/2024 Weight 147 lbs 10/09/2024 BMI 23.72 kg/m2 10/09/2024 Encounters Encounter Location Date Provider Diagnosis [facility] [address] [place] [phone] 12/14/2023 Pepe Stephenson [facility] [address] [place] [phone] 10/09/2024 Pepe Stephenson Dysphagia R13.10 ; Unspecified protein-calorie malnutrition E46 and PEG (percutaneous endoscopic gastrostomy) adjustment/replacement /removal Z43.1 [facility] [address] [place] [phone] 12/14/2023 Pepe Stephenson [facility] [address] [place] [phone] 10/26/2024 Pepe Stephenson ASSESSMENTS Encounter Date Diagnosis Assessment Notes Treatment Notes Treatment Clinical Notes 10/09/2024 Unspecified protein-calorie malnutrition (ICD-10 - E46) 10/09/2024 Dysphagia (ICD-10 - R13.10) Once we have the results of the [facility] GI series from 10/2024 and see how [...] the Gtube out in the office. 10/09/2024 PEG (percutaneous endoscopic gastrostomy) adjustment/replacem ent/removal (ICD-10 - Z43.1) PLAN OF TREATMENT Future Test Test Name Order Date UPPER GI ENDOSCOPY 02/26/2013 COLONOSCOPY 02/26/2013 Next Appt Details Provider Name:Pepe Stephenson , 02/12/2025 11:00:00 AM, [address] [place] [address], [address], [place], [address], Insurance Providers Payer Name Payer Address Payer Phone Subscriber Number Group Number Insured Name Patient Relationship to Insured Coverage Start Date Coverage End Date [facility] [address] Attn Claims HOSEA Solorzano [id number] [facility] Self - patient is the insured MEDICAL (GENERAL) HISTORY Medical History History ICD Code Seizures Kidney stones Denies DE,DM,CVA,renal disease HIV infection since age 23-[address] e[address]-reports neg. hepatitis serologies GERD Mild asthma-Albuterol prn Anxiety Fibromyalgia Gtube placed in July of 2023 HX of DVT's and Pulmonary em boli--2023-sees Dr. Wray--started Eliquis in 06/2024 Surgical History Surgery Date(Month/Year) Hemorrhoidectomy 2003 Eye surgery as a child
--- OUTSIDE RECORDS SUMMARY | 2024-10-28 12:36 | XMS_ITS ---
Demographics Address [address] [place] [address] Preferred Language es Marital Status Unknown Faith Affiliation Unknown Race White Ethnic Group Not or Lati no Author Organization [facility] Address [address] [place] [address] Care Team Providers Care Qualifications Examiner Name Role Phone Terese Rivera Primary Care Provider Pepe Dangelo [phone] Encounters Encounter Location Date Provider Diagnosis [facility] [address] [place] [address] 10/26/2024 Pepe Stephenson PLAN OF TREATMENT Next Appt Details Provider Name:Pepe Stephenson , 02/12/2025 11:00:00 AM, [address], [address], [place], [address],
--- OUTSIDE RECORDS SUMMARY | 2024-10-28 12:37 | XMS_ITS | Data Portability ---
Author Organization [facility] Related Content Database (RCDb) [facility], Main Office Address [address], [address] [place] [address] Care Team Providers Care Accountant Machine Processing Name Role Phone BRENDAN HOLLINGSWORTH - 2ND [...] and Address Organization Details Recorded Time Asthenia 15668215 Active 2022 MAURO DUFFY NP [address], [address], [place], [address], [facility] 3 12:08:07 Moderate protein-calori e malnutrition (weight for age 60-74 percent of standard) 140438713 Active 2022 MAURO DUFFY NP [address], [address], [place], [address], [facility] 3 12:08:23 Pneumonia 025483674 Active 2022 MAURO DUFFY NP [address], [address], [place], [address], [facility] 3 12:08:31 Pleural effusion 40826804 Active 2022 MAURO DUFFY NP [address], [address], [place], [address], [facility] 3 12:08:59 Hypertensive disorder 32918677 Active 2022 MAURO DUFFY NP [address], [address], [place], [address], [facility] 3 12:09:07 Human immunodeficien cy virus infection 45657935 Active 2022 MAURO DUFFY NP [address], [address], [place], [address], [facility] 3 12:09:12 Viral hepatitis C 73423134 Active 2022 MAURO DUFFY NP [address], [address], [place], [address], [facility] 3 12:09:28 Mixed anxiety and depressive disorder 407685197 Active 2022 MAURO DUFFY NP [address], [place], [address], [facility] 3 12:09:40 Asthma 029937627 Active 2022 MAURO DUFFY NP [address], [place], [address], [facility] 3 12:09:56 Acute dermatitis 94931961 Active 2022 MAURO DUFFY NP [address], [place], [address], [facility] 3 12:14:27 Migraine 33105608 Active 2022 MAURO DUFFY NP [address], [address], [place], [address], [facility] 3 12:25:08 Non-traumatic rhabdomyolysis 364586281 Active 2022 Leilani Romeo MD [address], [address], [place], [address], [facility] 3 10:08:19 Moderate persistent asthma 104393703 Active 2022 Leilani Romeo MD [address], [address], [place], [address], [facility] 3 10:18:10 Insomnia 631832227 Active 2022 Leilani Romeo MD [address], [address], [place], [address], [facility] 3 10:19:09 Polysubstance abuse 608196329 Active 2022 Leilani Romeo MD [address], [address], [place], [address], [facility] 3 10:19:11 Adult failure to thrive syndrome 245751339 Active 2022 Maryjane Glover NP [address], [address], [place], [address], [facility] 3 13:27:15 Anemia 238456521 Active 2022 Maryjane Glover NP [address], [address], [place], [address], [facility] 3 13:30:43 Dysphagia 46363888 Active 2022 Leilani Romeo MD [address], [address], [place], [address], [facility] 3 20:51:38 Gastroesophage al reflux disease without esophagitis 740480453 Active 2022 Leilani Romeo MD [address], [address], [place], [address], [facility] 3 20:54:24 Chronic pain 83338615 Active 2022 Leilani Romeo MD [address], [address], [place], [address], [facility] 3 20:55:56 Problem Notes None recorded. Medical Equipment None Reported. Allergies Allergen ID Allergen Name Allergen Category Reaction Reaction Severity Criticality Documentation Date Start Date Code Code System Note Provider Name and Address Organization Details Recorded Time 37988 codeine medicatio n Not available Not available Not available 01/17/2023 2670 RxNorm rash Not Available Not Available Not Available 36065 Levaquin medicatio n Not available Not available Not available 01/17/2023 53508 2 RxNorm rash Not Available Not Available Not Available 46745 Reglan medicatio n Not available Not available Not available 01/17/2023 9230 RxNorm rash Not Available Not Available Not Available 15793 ibuprofen medicatio n Not available Not available Not available 01/17/2023 5640 RxNorm reflu x Not Available Not Available Not Available 45327 Product containin g penicilli n (product) medicatio n Not available Not available Not available 01/17/2023 39365 8001 SNOMED rash Not Available Not Available Not Available 75976 Ultram medicatio n Not available Not available Not available 01/17/2023 39644 6 RxNorm N/V Not Available Not Available Not Available 72319 acetamino phen medicatio n other Not available unabletoasse ss 08/03/2023 161 RxNorm unkno wn Not Available Not Available Not Available 57504 [employer] environme nt,medica tion other Not available unabletoasse 08/03/2023 94578 6 RxNorm unkno wn Not Available Not [...] Details Last Updated DateTime 3 167.64 cm 97011.5 4 g 17.4 kg/m2 86 /min 18 /min 97.6 [degF] 91 % 91 % 115 mm[Hg] 68 mm[Hg] Maryjane Glover NP [address], [address], [place], [address], [place] [facility] 3 11:08:33 Date Recorded Body height Body weight Heart rate Respiratory rate Body temperature Oxygen saturation Oxygen saturation in Arterial blood by Pulse oximetry Systolic blood pressure Diastolic blood pressure Provider Name and Address Organization Details Last Updated DateTime 3 167.64 cm 71141.5 4 g 72 /min 18 /min 97.1 [degF] 96 % 96 % 115 mm[Hg] 68 mm[Hg] Maryjane Glover NP [address], [address], [place], [address], [facility] 3 13:10:32 Date Recorded Body height Body mass index (BMI) Body weight Heart rate Systolic blood pressure Diastolic blood pressure Provider Name and Address Organization Details Last Updated DateTime 3 167.64 cm 17.3 kg/m2 95453.3 8 g 74 /min 133 mm[Hg] 85 mm[Hg] Dilia Gonzalez [address], [address], [place], [address], [facility] 3 13:13:45 Date Recorded Body height Body weight Heart rate Respiratory rate Body temperature Oxygen saturation Oxygen saturation in Arterial blood by Pulse oximetry Systolic blood pressure Diastolic blood pressure Provider Name and Address Organization Details Last Updated DateTime 4 167.64 cm 63913.5 4 g 88 /min 18 /min 97.6 [degF] 96 % 96 % 133 mm[Hg] 85 mm[Hg] Maryjane Glover NP [address], [address], [place], [address], [facility] 4 19:10:48 Date Recorded Body height Heart rate Respiratory rate Body temperature Oxygen saturation Oxygen saturation in Arterial blood by Pulse oximetry Systolic blood pressure Diastolic blood pressure Provider Name and Address Organization Details Last Updated DateTime 4 167.64 cm 84 /min 18 /min 97.5 [degF] 98 % 98 % 133 mm[Hg] 85 mm[Hg] MAURO DUFFY NP [address], [address], [place], [address], [facility] 4 08:57:54 Social History Question Answer Notes LastModified by Organizat ion Details LastModified Time Tobacco Smoking Status Never Smoker MAURO DUFFY NP [address], [address], [place], [address], [facility] 01/17/2023 11:35:26 Do You Have An Advance Directive? Yes [email or web address] Information not available 01/17/2023 What Is Your Level Of Alcohol Consumption? None [email or web address] Information not available 01/17/2023 What Is Your Code Status? Full Code [email or web address] Information not available 01/17/2023 Where Do You Live? Apartment With Elevator, Family Near By, Helpful [email or web address] Information not available 01/17/2023 What Was The Date Of Your Most Recent Tobacco Screening? 08/03/2023 Information not available 08/03/2023 Do You Use Any Illicit Or Recreational Drugs? No Noted Past Use Cocaine Information not available 08/03/2023 Has Tobacco Cessation Counseling Been Provided? No [email or web address] Information not available 01/17/2023 Do You Or Have You Ever Used Any Other Forms Of Tobacco Or Nicotine? No [email or web address] Information not available 01/17/2023 Sex: Unknown Functional Status None recorded. Mental Status None recorded. Family History Relationship Description Onset Age of this Age Resolved Age Notes LastModified by Organization Details LastModified Time Mother Malignant tumor of lung [email or web address] Not available 2022 11:34:21 Medical History No medical history recorded. Immunizations Vaccine Type Date Status Note Provider Nam e and Address Organization Details Recorded Time COVID-19, mRNA, LNP-S, bivalent, PF, 50 mcg/0.5 mL or 25mcg/0.25 mL dose [facility] 13:44:56 COVID-19, mRNA, LNP-S, bivalent, PF, 50 mcg/0.5 mL or 25mcg/0.25 mL dose 3 [facility] 13:45:39 Pneumococcal conjugate PCV20, polysaccharide SUM936 conjugate, adjuvant, PF 3 completed Asia juarez [facility] 09/11/2023 13:46:16 Influenza, adjuvanted, quadrivalent, PF 3 completed Asia juarez [facility] 09/11/2023 13:46:36 Influenza, adjuvanted, quadrivalent, PF 2 completed Asia juarez [facility] 10/24/2023 13:13:32 Past Encounters Encounter ID Performer Location Encounter Start Date Encounter Closed Date Diagnosis/Indication Diagnosis SNOMED-CT Code Diagnosis ICD10 Code Diagnosis Note [id number] MAURO DUFFY NP [address] [address] 01/17/2023 11:16:19 01/22/2023 12:34:21 Pleural effusion 56239466 J90 and empyema, resp. failures/p L chest tube, intubation Clinically improved.M onitor VS, sats, LS, CP status closely for decompensa tion Pneumonia 951783194 J18. 9 Treated with IV zosyn in hosp.Clini lelsy improved.A s above, monitlr VS, sats, LS, CP status closely Asthenia 72673597 R53.1 PT OT eval and tx. Moderate protein-calorie malnutrition (weight for age 60-74 percent of standard) 300095791 E44.0 Started supplement s in hosp.Refer to hr business partner consultant here.Seen by in hosp, diet changed to chopped/ad vanced consistenc yOn reg. diet here, doing well. Refer to rehab to try to get bedside FEES testing Hypertensive disorder 38 758915 I10 On norvasc 5 mg dailyPropr anolol ER held in hosp., instructed to resume 03/09, unclear as to why held or if used for something else?Monio r VS, adjust meds prn Human immunodeficiency virus infection 81636095 B20 Continue biktarvy Mixed anxi ety and depressive disorder 129364947 F41.8 Continue home meds:clona zepam 1 mg daily? risperdal 2 mg HSremeron 60 mg HSMonitor mood, behaviors for changePsyc h eval prn Asthma 091677538 J45.90 9 Continue flovent bidMonitor resp. status for change Acute dermatitis 9521871 6 L30.9 bilat. groin, fungalstar t nystatin cream or powder bid x 14 days or until clearmonit or Migraine 89196214 G43.90 9 Continue home meds:Celeb monica 200 mg bidgabapen tin 600 mg tidibuprof en 800 mg q8 hr prnultram 50 daily prn? clonazepam 1 mg daily? risperdal 2 mg HS? propranolo l Er 120 mg daily - held in hosp - cont. to hold here, resume date of 03/09 [id number] Kenia Michaels MD [address] [address] 01/19/2023 07:22:18 01/22/2023 15:16:30 Pneumonia 913649369 J15.8 antibiotic s completeds /p empyema, respirator y failure, intubation will monitor Asthenia 73186844 R53.1 PT/OTwill monitor Human immunodeficiency virus infection 15302052 B20 Biktarvy 50-200-25 dailyfu I.D. Essential hypertension 28133338 I10 amlodipine 5 mg dailywill monitor Mixed anxi ety and depressive disorder 382584202 F41.8 gabapentin 600 mg tidmirtaza pine 60 mg at hsrisperid one 2 mg at hsclonazep am 1 mg dailywill monitor Gastroesop hageal reflux disease without esophagitis 077066492 K21.9 pantoprazo le 40 mg dailywill monitor Chronic pain 21866340 G8 9.29 gabapentin 600 mg tidhospita l discharge notes include:ce lecoxib 200 m bid, ibuprofen 800 mg q8h prn, tramadol 50 mg daily prnwill monitor and consider if needed [id number] Panchito Morales NP [facility] [address] [place] [address] 06/30/2023 08:20:37 07/03/2023 11:44:52 Human immunodeficiency virus infection 19250623 B20 06/30/23mo nitorID consult as indicated- biktarvy (bictegrav ir, emtricitab ine & tenofovir alafenamid e) 50-200-25m g QD Hypertensive disorder 38 808568 I10 06/30/23mo nitorcards FU PRNavoid beta barb with HX of cocaine abuse-amlo dipine 5mg QD Mixed anxi ety and depressive disorder 685854370 F41.8 06/30/23mo nitorpsych consult PRN-risper idone 3mg QHS Viral hepatitis C 989328 07 B19.20 10/21/23mo nitor [id number] Leilani Levheim, MD [facility] on [address] [place] [address] 07/02/2023 17:00:01 07/12/2023 14:37:46 Human immunodeficiency virus infection 55088485 B20 Non-detect able on last checkConti nue biktarvy (bictegrav ir, emtricitab ine & tenofovir alafenamid e) 50-200-25m g QDF/U with ID as planned. Hypertensive disorder 38 581740 I10 BP good since here.Sam nue amlodipine 5 mg qdMonitor BP and labs. Mixed anxi ety and depressive disorder 314466541 F41.8 Mood stable.Con tinue risperidon e 3 mg qhs, mirtazapin e 30 mg qhs, and clonazepam 1 mg qd.Monitor mood.Psych consult prn. Viral hepatitis C 597155 07 B18.2 Unclear hx.LFTs WNL.F/U as outpt. Acute chest pain 1459729 01 R07.89 Per cardio not ACS.Monito r sxs.F/U with cardio prn. Non-trauma tic rhabdomyolysis 390293384 M62.82 CPK trended down inpt.No need to monitor further. Moderate p ersistent asthma 136505438 J45.40 No SOB or hypoxia, but with junky cough as above.Cont inue Advair 230/21 two puffs BID, Flovent 2 puffs BID, and albuterol/ budesonide 2 puffs q 6 hrs prn.Monito r resp status. Polysubstance abuse 4452 86204 F19.10 Most often cocaine, but sometimes other things.Con tinue SUDs counseling while here and encourage abstinence and outpt f/u. Cough 72798547 R05.8 Sounds junky, but pt says it feels like tickle in throat. Maybe post nasal drip.Lungs clear, but still could be early PNA.Will start Robitussin DM 10 ml q 4 hrs prn and get CXR tomorrow.M onitor resp status. Insomnia 644826849 G47.0 9 Will try melatonin 5 mg qhs.Monito r sleep patterns. [id number] MIGUEL BROWN [facility] on [address] [place] [address] 07/05/2023 08:16:20 07/12/2023 16:01:31 Mixed anxiety and depressive disorder 375406111 F41.8 07/05: his mood is stablecont inue:clona zepam 1 mg dailyrispe ridone 3 mg daily at bedtime.Mi rtazapine 30 mg at bedtime daily.tu tonin 5 mg at bedtime daily Cough 80889407 R05.8 07/05: non productive upper airway congested coughThere is no SOB. LS are clearCXR completed; no active pulmonary infiltrate s or pleural effusions seen.Erna ussin DM 10 ml q 4 hrs prn- will scheduled for a few days, does not look like he requested prn.Monito r resp status. Polysubstance abuse 4452 24401 F19.10 Most often cocaine, but sometimes other things.Con tinue SUDs counseling while here and encourage abstinence and outpt f/u. [id number] MIGUEL BROWN [facility] on [address] [place] [address] 07/06/2023 09:35:29 07/12/2023 16:16:45 Mixed anxiety and depressive disorder 217592495 F41.8 continue:c lonazepam 1 mg dailyrispe ridone 3 mg daily at bedtime.Mi rtazapine 30 mg at bedtime daily.tu tonin 5 mg at bedtime dailyfollo w up with outpatient PCP. Cough 89277367 R05.8 CXR on 07/03/23 negative for any acute process.Ro bitussin DM 10 ml q 4 hrs prnfollow up with outpatient PCP. Acute dermatitis 9732553 6 L30.9 continueny statin cream BID as needed until clearedfol low up with outpatient PCP. Asthma 388726981 J45.90 9 Advair 230/21 two puffs BID,Floven t 2 puffs BID, andalbuter ol/budeson kentrell 2 puffs q 6 hrs prn.follow up with outpatient PCP. Human immunodeficiency virus infection 55688750 B20 Continue biktarvy (bictegrav ir, emtricitab ine & tenofovir alafenamid e) 50-200-25m g QD Hypertensive disorder 38 378963 I10 Continue amlodipine 5 mg qdfollow up outpatient Insomnia 766457096 G47.0 9 melatonin 5 mg at bedtime Migraine 03246818 G43.90 9 Continue home meds: Celebrex 200 mg bid gabapentin 600 mg tid ibuprofen 800 mg q8 hr prn ultram 50 daily prn clonazepam 1 mg daily risperdal 3 mg HS follow up with PCP Viral hepatitis C 026563 B18.2 follow labs outpatient follow up with outpatient pcp. [id number] Maryjane Glover NP [facility] [address] [place] [address] 08/03/2023 12:58:35 08/08/2023 10:07:33 Human immunodeficiency virus infection 37721551 B20 ID consult prnbiktarv y (bictegrav ir, emtricitab ine & tenofovir alafenamid e) 50-200-25m g QD Asthenia 86652160 R53.1 PT/OT treat and evalwill monitor Essential hypertension 22773672 I10 amlodipine 5 mg dailywill monitor Mixed anxi ety and depressive disorder 086371135 F41.8 gabapentin 600 mg tidmirtaza pine 60 mg at hsrisperid one 3 mg at hsclonazep am 1 mg dailypsych prnwill monitor Gastroesop hageal reflux disease without esophagitis 160377648 K21.9 With recent workup in hosp and PEG placed.use G tube for feedings/m edswill monitor Chronic pain 65932720 G8 9.29 gabapentin 600 mg tidtramado l 50 mg prn dailymulti ple allergies notedwill monitor and consider if needed Polysubstance abuse 4452 98946 F19.10 Most often cocaine per hx with overdoses notedConti nue counseling while here and encourage abstinence and outpt f/u. Asthma 227509618 J45.90 9 advair 2 puff bidalbuter ol 2 puffs q 6 hours prn wheezingMo nitor resp. status for change Viral hepatitis C 882502 B18.2 fu with labscurren tly stable liver enzymesmon itor Moderate protein-calorie malnutrition (weight for age 60-74 percent of standard) 012221445 E44.0 now on PEG tube with feedings at 60cc/hrRef er to hr business partner consultant here.Seen by in hosp, unclear why he has dysphagia and difficulty eating with workup including EGD at [facility] eval and treat here to see if he can take po intakemoni tor Anemia 972515953 D64.9 ferrous gluconate 324 dailymonit or cbc weekly Adult fail ure to thrive syndrome 123764783 R62.7 g tube feedings and meds through g tube at 60cc/hrfai lure to thrive with supplement s in [facility] to eval and treat, consider reintroduc ing foods when ableweight s weeklymoni tor Insomnia 372521063 G47.0 9 benedryl 25 mg qhsmonitor [id number] Leilani Romeo MD [address] [address] 08/06/2023 16:28:34 08/08/2023 11:16:44 Adult failure to thrive syndrome 015969195 R62.7 With marked wt. loss over past few months.Mehrdad barr Jevity 1.0 or 1.2 tanya/ml at 60 ml/hr.Stil l unable to swallow, unknown reason.Mehrdad barr PRINTER MAINTAINER interventi ons to hopefully enable him to eat again.Cait tor wts and labs. Moderate protein-calorie malnutrition (weight for age 60-74 percent of standard) 477262557 E44.0 As above. Human immunodeficiency virus infection 89846354 B20 Last labs show zero viral load.Sam nue Biktarvy (bictegrav ir, emtricitab ine & tenofovir alafenamid e) 50-200-25m g QDF/U with ID as planned. Asthenia 58084173 R53.1 Very deconditio armen.Needs PT/OT for strengthen ing, balance, gait training, safety and function.C ontinue fall precaution s.Monitor for safety. Essential hypertension 95395812 I10 BP running low since here, should improve as nutritiona l status improves.C ontinue amlodipine 5 mg qdMonitor BP and labs. Gastroesop hageal reflux disease without esophagitis 797132830 K21.9 On no meds.I wonder if starting a PPI may help with throat pain?Monit or Chronic pain 43348334 G8 9.29 No c/o tonight.Co ntinue gabapentin 600 mg TID and tramadol 50 mg qd prnMonitor sxs. Asthma 395848332 J45.30 Asthma meds transcribe d incorrectl y on admission here.Was not put on Advair, but rather only albuterol/ budesonide prn.Will restart Advair 230/21 mcg two puffs BIDMonitor resp. status Anemia 751119618 D64.89 Not currently anemic.Con tinue ferrous gluconate 324 mg qdMonitor labs Mixed anxi ety and depressive disorder 826366494 F41.8 Mood stable.Con tinue risperidon e 3 mg qhs, mirtazapin e 60 mg qhs, and clonazepam 1 mg qd.Monitor mood.Psych consult prn. Viral hepatitis C 495253 07 B18.2 Unclear hx.LFTs WNL.F/U as outpt. Polysubstance abuse 4452 16296 F19.10 Most often cocaine, but sometimes other things.Con momo counseling and encourage abstinence and outpt f/u. Dysphagia 98558834 R13.1 9 Unknown etiology.C ontinue G-tube feeding as above.Cons ider ENT consult. [id number] Maryjane Glover, LADAN [address] [address] 08/16/2023 12:26:03 08/22/2023 11:29:11 Adult failure to thrive syndrome 345468669 R62.7 With marked wt. loss over past few months.Con tinueJevit y 1.5 tanya/ml at 60 ml/hr. hr business partner consultant following and will adjust as neededStil l unable to swallow, unknown reason.Con momo PRINTER MAINTAINER interventi ons to hopefully enable him to eat again.Cait tor wts and labs. Dysphagia 88111457 R13.1 9 Unknown etiology.C ontinue G-tube feeding as above.Cons ider ENT consult. Moderate protein-calorie malnutrition (weight for age 60-74 percent of standard) 959593894 E44.0 As above. Human immunodeficiency virus infection 44873394 B20 Last labs show zero viral load.Sam nueBiktarv y (bictegrav ir, emtricitab ine & tenofovir alafenamid e) 50-200-25m g QDF/U with ID as planned. Asthenia 53667411 R53.1 Very deconditio armen.Needs PT/OT for strengthen ing, balance, gait training, safety and function.C ontinue fall precaution s.Monitor for safety. Essential hypertension 52875781 I10 BP running low since here, should improve as nutritiona l status improves.a mlodipine 5 mg qdMonitor BP and labs. Gastroesop hageal reflux disease without esophagitis 831965993 K21.9 no meds.Monit or Chronic pain 59062079 G8 9.29 has mild headache todayConti nuegabapen tin 600 mg TIDtramado l 50 mg qd prnMonitor sxs. Asthma 230466331 J45.30 Asthma meds transcribe d incorrectl y on admission here.albut maddi/budes onide prn.Advair 230/21 mcg two puffs BIDMonitor resp. status Anemia 058787974 D64.89 Not currently anemic.juan carlos scales order cbc and bmp weekly [id number] gluconate 324 mg qdMonitor labs Mixed anxi ety and depressive disorder 826083858 F41.8 Mood stable.ris peridone 3 mg qhsmirtaza pine 60 mg qhs,clonaz epam 1 mg qd.Monitor mood.Psych consult prn. Viral hepatitis C 629490 07 B18.2 Unclear hx.LFTs WNL.F/U as outpt. Polysubstance abuse 4452 67082 F19.10 Most often cocaine, but sometimes other things.Mehrdad barr counseling and encourage abstinence and outpt f/u. [id number] Maryjane Glover NP [address] [address] 08/22/2023 11:06:38 08/28/2023 14:23:57 Adult failure to thrive syndrome 769392212 R62.7 With marked wt. loss over past few months.Con tinueJevit y 1.2 tanya/ml at 67ml/hr. hr business partner consultant following and will adjust as neededStil l unable to swallow, unknown reason.Mehrdad barr PRINTER MAINTAINER interventi ons to hopefully enable him to eat again.Cait tor wts and labs.08/22 hr business partner consultant to assess if bolus feedings can be attempted for homefamily /pt needs g tube care/teach ing for ? dc homemonito r Asthenia 55217953 R53.1 Very deconditio armen, improving every week with therapyNee ds PT/OT for strengthen ing, balance, gait training, safety and function.C ontinue fall precaution s.Monitor for safety. Dysphagia 51882581 R13.1 9 Unknown etiology.C ontinue G-tube feeding as above.Cons ider ENT consult. Anemia 912429765 D64.89 Not currently anemic.juan carlos l order cbc and bmp weekly [id number] gluconate 324 mg qdMonitor labs Moderate protein-calorie malnutrition (weight for age 60-74 percent of standard) 941396206 E44.0 As above. Human immunodeficiency virus infection 57512269 B20 ContinueBi ktarvy (bictegrav ir, emtricitab ine & tenofovir alafenamid e) 50-200-25m g QDF/U with ID as planned. Essential hypertension 24293552 I10 BP now improving as nutritiona l status improves.1 10s-130s /60scontam lodipine 5 mg qdMonitor BP and labs. Gastroesop hageal reflux disease without esophagitis 064525492 K21.9 no meds.Monit or Chronic pain 10265202 G8 9.29 headache resolvedCo ntinuegaba pentin 600 mg TID, no pain todaytrama dol 50 mg qd prnMonitor sxs. Asthma 891970760 J45.30 Asthma meds transcribe d incorrectl y on admission here.albut maddi/budes onide prn.Advair 230/21 mcg two puffs BIDMonitor resp. status Mixed anxi ety and depressive disorder [id number] F41.8 Mood stable and ding wellrisper idone 3 mg qhsmirtaza pine 60 mg qhs,clonaz epam 1 mg qd.Monitor mood.Psych consult prn. [id number] Maryjane Glover NP [address] [address] 08/29/2023 08:14:48 08/30/2023 19:42:34 Adult failure to thrive syndrome [id number] R62.7 With marked wt. loss over past few months.Con tinueJevit y 1.2 tanya/ml at 67ml/hr. hr business partner consultant following and will adjust as neededStil l unable to swallow, unknown reason.per speech eval: no eating or drinkingMo nitor wts and labs.08/22 hr business partner consultant to assess if bolus feedings can be attempted for homefamily /pt needs g tube care/teach ing for ? dc homemonito r1/ awaiting hr business partner consultant to calculate gtube feedings and start Asthenia 65170366 R53.1 Very deconditio armen, improving every week with therapyNee ds PT/OT for strengthen ing, balance, gait training, safety and function.C ontinue fall precaution s.Monitor for safety. Dysphagia 62995125 R13.1 9 Unknown etiology.C ontinue G-tube feeding as above.Cons ider ENT consult. Anemia 161856599 D64.89 Not currently anemic.juan carlos l order cbc and bmp prn, labs stableferr ous gluconate 324 mg qdMonitor labs Moderate protein-calorie malnutrition (weight for age 60-74 percent of standard) 915252264 E44.0 As above. Human immunodeficiency virus infection 73267551 B20 ContinueBi ktarvy (bictegrav ir, emtricitab ine & tenofovir alafenamid e) 50-200-25m g QDF/U with ID as planned. Essential hypertension 57917825 I10 BP now improving as nutritiona l status improves.1 conta mlodipine 5 mg qdMonitor BP and labs. Gastroesop hageal reflux disease without esophagitis 202109875 K21.9 no meds.Monit or Chronic pain 27031620 G8 9.29 headache resolvedCo ntinuegaba pentin 600 mg TID, no pain todaytrama dol 50 mg qd prnMonitor sxs. Asthma 574557932 J45.30 Asthma meds transcribe d incorrectl y on admission here.albut maddi/budes onide prn.Advair 230/21 mcg two puffs BIDMonitor resp. status Mixed anxi ety and depressive disorder 488468678 F41.8 Mood stable and ding wellrisper idone 3 mg qhsmirtaza pine 60 mg qhs,clonaz epam 1 mg qd.Monitor mood.Psych consult prn. Neck pain 80077201 M54.2 incidental neck pain, states slept on it wrongnsg giving tyl, tramadol and gabapentin reposition neckmonito r for relief [id number] Dilia SchwarzGino Hutchinson [address] [place] [address] 09/07/2023 05:15:43 09/13/2023 10:39:11 Adult failure to thrive syndrome 164311666 R62.7 With marked wt. loss over past few months.Con tinueJevit y 1.2 tanya/ml at 67ml/hr. hr business partner consultant following and will adjust as neededStil l unable to swallow, unknown reason.Mehrdad barr PRINTER MAINTAINER interventi ons to hopefully enable him to eat again.Cait tor wts and labs.recei deborah education on gt feeds, SW working on VNA set up for [facility] GT site daily with NS and dry. apply 2x2 to sitemonito r Asthenia 51061962 R53.1 Very deconditio armen, improving every week with therapyNee ds PT/OT for strengthen ing, balance, gait training, safety and function.C ontinue fall precaution s.Monitor for safety. Dysphagia 96317456 R13.1 9 Unknown etiology.C ontinue G-tube feeding as above.Cons ider ENT consult. Anemia 425846844 D64.89 Not currently anemic.juan carlos l order cbc and bmp weekly [id number] gluconate 324 mg qdMonitor labs Moderate protein-calorie malnutrition (weight for age 60-74 percent of standard) 474854972 E44.0 As above. Human immunodeficiency virus infection 22582832 B20 ContinueBi ktarvy (bictegrav ir, emtricitab ine & tenofovir alafenamid e) 50-200-25m g QDF/U with ID as planned. Essential hypertension 35152726 I10 BP now improving as nutritiona l status improves.1 10s-130s /60scontam lodipine 5 mg qdMonitor BP and labs. Gastroesop hageal reflux disease without esophagitis 249382917 K21.9 no meds.Monit or Chronic pain 63798545 G8 9.29 headache resolvedCo ntinuegaba pentin 600 mg TID, no pain todaytrama dol 50 mg qd prnMonitor sxs. Asthma 796091844 J45.30 Asthma meds transcribe d incorrectl y on admission here.albut maddi/budes onide prn.Advair 230/21 mcg two puffs BIDMonitor resp. status Mixed anxi ety and depressive disorder 912016277 F41.8 Mood stable and ding wellrisper idone 3 mg qhsmirtaza pine 60 mg qhs,clonaz epam 1 mg qd.Monitor mood.Psych consult prn. [id number] Maryjane Glover, LADAN [facility] [address] [place] [address] 09/12/2023 18:08:08 09/14/2023 11:17:17 Adult failure to thrive syndrome 728503571 R62.7 With marked wt. loss over past few months.Con tinueosmol ite 1.2 tanya/ml 410 cc qid bolus tube feedings Still unable to swallow, unknown reason, however eating and drinking in room with asp risk, will do FEES test on Sundaywi order cxr tomorrow to rule out pna with riskMonito r wts and labs. (needs weight foster)receiv ed education on gt feeds, SW working on VNA set up for [place], scripts givenclean se GT site daily with NS and dry. apply 2x2 to sitemonito r Asthenia 12715833 R53.1 Very deconditio armen, improving every week with therapyNee ds PT/OT for strengthen ing, balance, gait training, safety and function.C ontinue fall precaution s.Monitor for safety. Dysphagia 74323097 R13.1 9 Unknown etiology.C ontinue G-tube bolus feeding as above.FEES test on Sundayne s cxr to rule out pna from foods and drinks in room despite recommenda tionConsid er ENT consult. Moderate protein-calorie malnutrition (weight for age 60-74 percent of standard) 782524788 E44.0 As above. Human immunodeficiency virus infection 51109217 B20 ContinueBi ktarvy (bictegrav ir, emtricitab ine & tenofovir alafenamid e) 50-200-25m g QDF/U with ID as planned. Essential hypertension 86973853 I10 BP now improving as nutritiona l status improves.1 10s-130s /60scontam lodipine 5 mg qdMonitor BP and labs. Asthma 161730802 J45.30 no wheezing noted on exam, stablealbu terol/bude sonide prn.Advair 230/21 mcg two puffs BIDMonitor resp. status Mixed anxi ety and depressive disorder 704943812 F41.8 Mood stable and ding wellrisper idone 3 mg qhsmirtaza pine 60 mg qhs,clonaz epam 1 mg qd.Monitor mood.Psych consult prn. [id number] [facility]URO DUFFY [facility] [address] 09/18/2023 08:57:08 09/25/2023 10:49:09 Adult failure to thrive syndrome 024923202 R62.7 With marked wt. loss over past few months due to difficulty swallowing .G tube placed 07/30/23 at [facility].Contin ue osmolite 1.2 tanya/ml 410 cc qid bolus tube feedings upon d/c home.Seen by PRINTER MAINTAINER - now on puree diet with thin liquids - may continue at homeContin ue to monitor weights and intake at home Asthenia 60916236 R53.1 Improved, meeting rehab goals for d/c home today with support of services.C ontinue fall precaution s.Monitor for safety as outpt. Dysphagia 75444615 R13.1 9 Unknown etiology.S ee above.[facility] w on pureed diet, thin liquidsMon itor intake, s/s aspiration as outpt. Moderate protein-calorie malnutrition (weight for age 60-74 percent of standard) 515910484 E44.0 As above. Human immunodeficiency virus infection 81252021 B20 ContinueBi ktarvy (bictegrav ir, emtricitab ine & tenofovir alafenamid e) 50-200-25m g QDF/U with ID as planned. Essential hypertension 64451233 I10 continue amlodipine 5 mg qdMonitor BP as outpt. Asthma 338064942 J45.30 no wheezing noted on exam, stablecont inue Advair 230/21 mcg two puffs BID and albuterol/ budesonide prn.Monito r resp. status as outpt. Mixed anxi ety and depressive disorder 794293277 F41.8 Mood stable and doing wellContin ue home medsrisper idone 3 mg qhsmirtaza pine 60 mg qhsclonaze david 1 mg qdMonitor mood, behaviors as outpt. Chronic pain 24605521 G8 9.29 continue gabapentin 600 mg tid, ultram 50 mg qd prnmonitor asoutpt. Anemia 369080800 D64.89 remains on daily FeMonitor CBC,s/s active bleeding Health Concerns Section Related Observation LastModified by Organization Detai ls LastModified Time None Recorded Concern Status LastModified by Organization Details LastModified Time None Recorded Advance Directives Directive Y: Payers Encounter Date Sequence Insurance Name Policy Number Policy Perry Covered Member ID Perry Member ID Guarantor Name 08/22/2023 1 [facility] [employer] - DOS ON OR AFTER 2022 - MEDICARE ADVANTAGE [place] (MEDICARE REPLACEMENT/ADV ANTAGE - PPO) [facility] [id number] [facility] 08/29/2023 1 [employer] [employer] - DOS ON OR AFTER 2022 - MEDICARE [place] (MED[place]ARE RE[place]ACEMENT/ADV ANTAGE - PPO) [facility] [id number] [facility] 09/07/2023 1 [employer] - DOS ON OR AFTER 2022 - [place]/ADV ANTAGE - PPO) [facility] Fall [id number] [facility] 09/12/2023 1 [employer] - DOS ON OR AFTER 2022 - [place]/ADV ANTAGE - PPO) [facility] [id number] [facility] 09/18/2023 1 [employer] - DOS ON OR AFTER 2022 - [place] (MED[place]ARE RE[place]ACEMENT/ADV ANTAGE - PPO) [facility] Fall [id number] [facility] Notes Date Note Type Note Provider [...] other concerns. Note: He was admitted to [facility] ED for similar concerns earlier this month [...] code signed 01/17/23 Maryjane Glover NP [address], [address], [place], [address], [facility] [place] 08/22/2023 11:24:08 08/29/2023 text/html Patient seen for an 30 routine rounding visit. Past medical history significant for HIV, history of hep C, depression, asthma, history lung abscess 2020, fall, several overdoses noted in hx. dysphagia seen for difficulty swallowing ultimately diagnosed with failure to thrive and PEG tube placed. Benjamin was admitted to [facility] ED for difficulty swallowing and underwent EGD [...] hospital to rehab. While here at [facility]: Pt is 107.6 lbs and this is [...] disconnect his feedings without difficulty here. Awaiting hr business partner consultant to calculate bolus feedings and start them [...] code signed 01/17/23 Maryjane Glover NP [address], [address], [place], [address], [facility] [place] 08/29/2023 13:39:07 09/07/2023 text/html Patient seen for [...] other concerns. Note: He was admitted to [facility] ED for similar concerns earlier this month [...] see if food can be taken orally. CAITST: Full code signed 01/17/23 Dilia Michelle lloyd [address], [address], [place], [address], [employer] 09/07/2023 13:21:25 09/12/2023 text/html Patient seen for [...] to have a FEES test on Sunday am.CAITST: Full code signed 01/17/23 Maryjane Glover NP [address], [address], [place], [address], [employer] 09/12/2023 19:33:00 09/18/2023 text/html Benjamin is seen t heidy for discharge. He is going home today with support of services. He is a 58 yo man admitted to [facility] 08/02/23 from [facility] for continued care and rehab after a hospitalization related to malnutrition and FTT.He presented to [facility] 07/27 reporting throat pain and the inability to swallow.Swallowing issues problematic prior to this presentation, had EGD with Dr. Dodson 07/17, results c/w mild candidiasis normal stomach and duodenum. He was also seen by PRINTER MAINTAINER, diet changed to NND1 and nectar thick liquid. Due to ongoing swallowing issues at home, he returned to [facility] ER.A g-tube was placed on 07/30, cause of dysphagia unclear. Kept NPO, and sent here for rehab. While here, Benjamin has done well.Worked with PT/OT, meeting goals for d/c home.Also worked with PRINTER MAINTAINER and hr business partner consultant - now tolerating puree diet with thin [...] also, possibly inadvertently). MAURO DUFFY NP [address], [address], [place], [address], [facility] 09/18/2023 09:47:21
--- OUTSIDE RECORDS SUMMARY | 2024-10-28 12:37 | XMS_ITS | Clinical Summary ---
Author Organization [facility] Address [address] [place] [address] Care Team Providers Care Source Water Protection Specialist Name Role Phone Zora Arce PA-C Primary Care Provider [phone] Source Comments PLEASE NOTE, if this patient [...] EC tabletIndications:H IV (human immunodeficiency virus infection) ([facility]) Take 1 Tab by mouth [...] NUTRITION) liquidIndications:H IV (human immunodeficiency virus infection) ([facility]) Take 1 Can by mouth [...] nasal sprayIndications:As thma, intermittent, uncomplicated Place 1 [place] into the nostril(s) as needed for congestion. [...] 01/27/2015 Generalized anxiety disorder 01/27/2015 Seizure disorder ([facility]) 01/27/2015 Major depressive disorder, r ecurrent, severe without psychotic features ([facility]) 01/27/2015 Overview (01/27/2015): Has therapist at [facility] HIV (human immunodeficiency virus infection) ( [facility]) 01/27/2015 Chronic back pain 01/27/2015 Hepatitis C [...] Plan of Treatment Not on file [place] Subscriber Plan / Payer ( fective 2015-Present) Name:Benjamin Fall Relation to Subscriber:Self Name:Benjamin Fall Payer ID:[id number] Group ID:Not on file Type:Medicaid Address: [address] DENT[place] Care Teams Source Water Protection Specialist Relationship Specialty Start Date End Date Zora Arce PA-C [address] [place] [address] PCP - General 11/05/18
== END 2024-10-28 11:21 | disposition home or self-care (01) ==
LOC: HO.HHCX 11:20
PROVIDERS: Visit Provider Internal Medicine
DX: M71.21 Synovial cyst of popliteal space [Baker], right knee (principal)
CPT/HCPCS: 73564

== ENCOUNTER → 2024-10-28 11:21 | Outpatient (BNV) | payer OTHER, SELFPAY | PROVIDERS: Visit Provider Radiology Diagnostic Radiology | DX: M71.21 Synovial cyst of popliteal space [Baker], right knee (principal) | CPT/HCPCS: 73564 ==

== ENCOUNTER 2024-10-28 11:51 | Outpatient (AMB) | payer OTHER, SELFPAY ==
--- NOTE | 2024-10-28 12:21 | AM.OFFVISNUR ---
Intake Visit Reasons: Evenity #1 Allergies Seasonal Allergies Allergy (Intermediate, Verified 10/17/24 09:35) Eye Drainage codeine [From Tylenol-Codeine #3] Allergy (Mild, Verified 10/17/24 09:35) Rash levofloxacin [From Levaquin] Allergy (Mild, Verified 10/17/24 09:35) Rash metoclopramide [From Reglan] Allergy (Mild, Verified 10/17/24 09:35) Rash acetaminophen [Tylenol-Codeine #3] Allergy (Unknown, Verified 10/17/24 09:35) Rash Penicillins [PENICILLINS] Allergy (Unknown, Verified 10/17/24 09:35) Rash ibuprofen [From Motrin] Adverse Reaction (Unknown, Verified 10/17/24 09:35) Reflux Office Meds romosozumab-aqqg 210 mg/2.34 mL(105 mg/1.17 mL x2)subcutaneous syringe Performing Provider: Ritu Scott MD [place] [facility] Administered by: Dorothy Melendez RN on 10/28/24 12:21 Dose Route Admin Location Dispensed Lot Number Expiration Date NDC Optimization Analyst 210 mg subcut bilateral upper arms 2.34 mL [id number] 12/08/26 38069-173-68 [facility] Comments: Visit interpreted by Hesham #[id number] and Joe #[id number]. Pt accompanied by POWER SWEEPER OPERATOR. Consent form signed by patient. I discussed with pt that he will not be responsible for bringing this medication in. Discussed that this medication is given every 4 weeks for 1 year. Advised that the evenity is two separate injections that we give in the back of the arm if we are medically able. Advised that given this is his first injection we will have him stay for 15 minutes following injection per protocol. I advised pt he will remain on vitamin D and calcium while on this medication and to let his dentist know she is on this medication. All questions were answered and pt is agreeable to plan. Pt tolerated injection well and was observed for 15 minutes following injection without incident. Pt scheduled for 4 weeks from now. Assessment & Plan Assessment & Plan Orders: Orders AMB Romosozumab Injection Patient Supplied Today M81.0 - Age-related osteoporosis without current pathological fracture Medications: New romosozumab-aqqg 210 mg (2.34 mL) subcut ONCE 2.34 mL 0RF M81.0 - Age-related osteoporosis without current pathological fracture Coding
--- OUTSIDE RECORDS SUMMARY | 2024-10-28 13:01 | XMS_ITS | Clinical Summary ---
Author Organization [facility] Address [address] [place] [address] Care Team Providers Care Hogshead Liner Name Role Phone Zora Arce PA-C Primary Care Provider [phone] Source Comments PLEASE NOTE, if this patient [...] EC tabletIndications:H IV (human immunodeficiency virus infection) ([facility]) Take 1 Tab by mouth [...] NUTRITION) liquidIndications:H IV (human immunodeficiency virus infection) ([facility]) Take 1 Can by mouth [...] nasal sprayIndications:As thma, intermittent, uncomplicated Place 1 [place] into the nostril(s) as needed for congestion. [...] 01/27/2015 Generalized anxiety disorder 01/27/2015 Seizure disorder ([facility]) 01/27/2015 Major depressive disorder, r ecurrent, severe without psychotic features ([facility]) 01/27/2015 Overview (01/27/2015): Has therapist at [facility] HIV (human immunodeficiency virus infection) ( [facility]) 01/27/2015 Chronic back pain 01/27/2015 Hepatitis C [...] Plan of Treatment Not on file [place] Subscriber Plan / Payer ( fective 2015-Present) Name:Benjamin Fall Relation to Subscriber:Self Name:Benjamin Fall Payer ID:[id number] Group ID:Not on file Type:Medicaid Address: [address] DENT[place] Care Teams Hogshead Liner Relationship Specialty Start Date End Date Zora Arce PA-C [address] [place] [address] PCP - General 11/05/18
== END 2024-10-28 12:27 | disposition home or self-care (01) ==
LOC: HO.ENCR 11:51
PROVIDERS: PCP Student in an Organized Health Care Education/Training Program
DX: M81.0 Age-related osteoporosis without current pathological fracture (principal)

== ENCOUNTER 2024-10-29 08:01 | Outpatient (REF) | payer OTHER, SELFPAY ==
--- NOTE | 2024-10-29 08:04 | PFT_ITS ---
Flows: FEV1: 70 % of predicted at 2.16 L FVC: 76 % of predicted at 3.00 L FEV1/FVC: 72 % Bronchodilator response: Absent Volumes: Patient unable to perform lung volumes maneuvers. Diffusion capacity: Normal Impression: No obstructive ventilatory defect, suggestion of underlying restrictive ventilatory defect. No bronchodilator response. Patient unable to perform lung volumes maneuvers. MTDD
--- OUTSIDE RECORDS SUMMARY | 2024-10-29 08:09 | XMS_ITS | Continuity of Care Document ---
Author Organization LYNN WHITE MD [facility], Main Office Address [address] [place] [address] Assessment No assessment recorded. Plan of Treatment Reminders Order Date Submit Date Provider Last Modified By Organization Details Last Modified Time Details Appointments RESEARCH FOLLOW UP 2024 11:00A M Cheryl [address] MD Not available Not available Not available Lab None recorded. Referral None recorded. Procedures None recorded. Surgeries None recorded. Imaging None recorded. Medication Orders clotrimaz ole 10 mg klaudia 2024 025 [facility]/Pharmacy #[id number], [address] [place], [address], 10/21/2024 14:29:45 Biktarvy 50 mg-200 mg-25 mg tablet 2024 025 [facility]armacy #[id number], [address] [place], [address], 10/21/2024 14:30:45 Patient TargetsNo targets recorded. Patient Instructions Encounter Date Encounter Id Patient Instructions Last Modified By Organization Details Last Modified Time 10/21/2024 [id number] Clotrimazole Oral Lozenge (CLOTRIMAZOLE LOZENGE - MUCOUS MEMBRANE (ORAL)) cmartorell Not available 10/21/2024 14:29:44 Reason for Referral None Reported. Problems Name Problem SNOMED Code Status Onset Date Resolution Date Notes Provider Name and Address Organization Details Recorded Time Asthma 371662218 Active 2006 Asthma; snomeddesc ription: Asthma; Report Immunity to Registry: Yes; Asthma; Report Immunity to Registry: Yes; ReasonDate : 10/13/2019 ; ; Start Date : 10/13/2019 Asthma; snomeddesc ription: Asthma; Report Immunity to Registry: Yes; Not Available [facility] 4 06:58:53 Male hypogonad ism 39879097 Active 2012 Male hypogonadi sm; snomeddesc ription: Male hypogonadi sm; Report Immunity to Registry: Yes; Not Available [facility] 4 06:58:53 Diarrhea 40809535 Active 2006 Diarrhea; snomeddesc ription: Diarrhea; Report Immunity to Registry: Yes; Diarrhea, unspecifie d; snomeddesc ription: Diarrhea; Report Immunity to Registry: Yes; Not Available [facility] 4 06:58:53 Substance abuse 86603047 Active 2006 Substance abuse; snomeddesc ription: Substance abuse; Report Immunity to Registry: Yes; Notes: opiate/suad jolene/benzo ; Not Available [facility] 4 06:58:53 Human immunodef iciency virus infection 34236563 Active 1991 Human immunodefi ciency virus [HIV] disease; snomeddesc ription: Human immunodefi ciency virus infection; Report Immunity to Registry: Yes; Human immunodefi ciency virus infection; snomeddesc ription: Human immunodefi ciency virus infection; Report Immunity to Registry: Yes; Not Available [facility] 4 06:58:53 Steatosis of liver 488365536 Active 2006 Steatosis of liver; snomeddesc ription: Steatosis of liver; Report Immunity to Registry: Yes; Notes: u/s 2021; Fatty (change of) liver, not elsewhere classified ; snomeddesc ription: Steatosis of liver; Report Immunity to Registry: Yes; Notes: u/s 2021; Not Available [facility] 4 06:58:53 Herpesvir us infection 88091040 Active 2009 Herpesvira l infection, unspecifie d; snomeddesc ription: Herpes simplex; Report Immunity to Registry: Yes; Notes: HSV 1 pos serology; HSV 2 neg serology; Not Available [facility] 4 06:58:53 Fibromyos itis 08870584 Active 2006 Myalgia and myositis, unspecifie d; snomeddesc ription: Fibromyalg ia; Report Immunity to Registry: Yes; Notes: Chronic pain multiple/c hronic back pain; Not Available [facility] 4 06:58:53 Herpes simplex 47524229 Active 2009 Herpes simplex; snomeddesc ription: Herpes simplex; Report Immunity to Registry: Yes; Notes: HSV 1 pos serology; HSV 2 neg serology; Not Available [facility] 4 06:58:54 Kidney stone 06082083 Active 2001 Calculus of kidney; snomeddesc ription: Kidney stone; Report Immunity to Registry: Yes; Kidney stone; snomeddesc ription: Kidney stone; Report Immunity to Registry: Yes; Not Available [facility] 4 06:58:54 History of calculus of kidney 950791227 Active 2001 History of calculus of kidney; snomeddesc ription: History of calculus of kidney; Report Immunity to Registry: Yes; Not Available [facility] 4 06:58:54 Type B viral hepatitis 86790105 Active 2006 Type B viral hepatitis; snomeddesc ription: Type B viral hepatitis; Report Immunity to Registry: Yes; Notes: core ab pos; s ag neg; s ab neg HBV vL nondetecte d 2016; 2017; Not Available [facility] 4 06:58:54 Hyperplas ia of prostate 364460376 Active 2014 Hyperplasi a of prostate, unspecifie d, without urinary obstructio n and other lower urinary symptoms (LUTS); snomeddesc ription: Hyperplasi a of prostate; Report Immunity to Registry: Yes; Hyperplas ia of prostate; snomeddesc ription: Hyperplasi a of prostate; Report Immunity to Registry: Yes; Not Available [facility] 4 06:58:54 Anxiety 98761611 Active 1996 Anxiety; snomeddesc ription: Anxiety; Report Immunity to Registry: Yes; Not Available [facility] 4 06:58:54 Testicula r hypofunct ion 370542618 Active 2012 Other testicular hypofuncti on; snomeddesc ription: Male hypogonadi sm; Report Immunity to Registry: Yes; Not Available [facility] 4 06:58:54 Seasonal allergic rhinitis 473409899 Active 2012 Other seasonal allergic rhinitis; snomeddesc ription: Seasonal allergy; Report Immunity to Registry: Yes; Notes: hx nasal congestion ; Not Available [facility] 4 06:58:54 Onychomyc osis due to dermatoph yte 960380915 Active 2017 Tinea unguium; snomeddesc ription: Onychomyco sis; Report Immunity to Registry: Yes; Notes: feet digits; Not Available [facility] 4 06:58:55 Sleep apnea 55152352 Active 1999 Sleep apnea; snomeddesc ription: Sleep apnea; Report Immunity to Registry: Yes; Unspecifi ed sleep apnea; snomeddesc ription: Sleep apnea; Report Immunity to Registry: Yes; Not Available [facility] 4 06:58:55 Psychoact marj substance abuse 16523030 Active 2006 Other psychoacti ve substance abuse, uncomplica lucho; snomeddesc ription: Substance abuse; Report Immunity to Registry: Yes; Notes: opiate/suad jolene/benzo ; Not Available [facility] 4 06:58:55 Viral hepatitis B without hepatic coma 749810707 Active 2006 Unspecifie d viral hepatitis B without hepatic coma; snomeddesc ription: Type B viral hepatitis; Report Immunity to Registry: Yes; Notes: core ab pos; s ag neg; s ab neg HBV vL nondetecte d 2016; 2017; Not Available [facility] 4 06:58:55 Blood chemistry outside reference range 450708480 Active 2012 Other specified abnormal findings of blood chemistry; snomeddesc ription: Decreased testostero ne level; Report Immunity to Registry: Yes; Notes: hypogoandi sm; Not Available [facility] 4 06:58:55 Arthritis 1615501 Active 1998 Arthritis; snomeddesc ription: Arthritis; Report Immunity to Registry: Yes; Notes: Osteoatrth ris multiple; Not Available [facility] 4 06:58:55 History of urinary stone 166355563 Active 2001 Personal history of urinary calculi; snomeddesc ription: History of calculus of kidney; Report Immunity to Registry: Yes; Not Available [facility] 4 06:58:56 Fibromyal mika 551553705 Active 2006 Fibromyalg ia; snomeddesc ription: Fibromyalg ia; Report Immunity to Registry: Yes; Notes: Chronic pain multiple/c hronic back pain; Not Available [facility] 4 06:58:56 Lyme disease 06595631 Active 2017 Lyme disease; Report Immunity to Registry: Yes; Notes: tx cefuroxime x14 d (hx all Doxy); Not Available [facility] 4 06:58:56 Headache 10314455 Active 2008 Headache; snomeddesc ription: Headache; Report Immunity to Registry: Yes; Notes: migraine; Headache; snomeddesc ription: Headache; Report Immunity to Registry: Yes; Notes: migraine; Not Available [facility] 4 06:58:56 Hypertens marj disorder 00696402 Active 2017 Hypertensi ve disorder; snomeddesc ription: Hypertensi ve disorder; Report Immunity to Registry: Yes; Not Available [facility] 4 06:58:56 Arthropat hy 098325638 Active 1998 Arthropath y, unspecifie d, site unspecifie d; snomeddesc ription: Arthritis; Report Immunity to Registry: Yes; Notes: Osteoatrth ris multiple; Not Available [facility] 4 06:58:56 Essential hypertens ion 81464285 Active 2017 Essential (primary) hypertensi on; snomeddesc ription: Hypertensi ve disorder; Report Immunity to Registry: Yes; Not Available [facility] 4 06:58:57 Testoster one level below reference range 374915242 Active 2012 Decreased testostero ne level; snomeddesc ription: Decreased testostero ne level; Report Immunity to Registry: Yes; Notes: hypogoandi sm; Not Available [facility] 4 06:58:57 Insomnia 092392647 Active 1996 Insomnia; Report Immunity to Registry: Yes; Not Available [facility] 4 06:58:57 Anxiety state 718314430 Active 1996 Anxiety state, unspecifie d; snomeddesc ription: Anxiety; Report Immunity to Registry: Yes; Not Available [facility] 4 06:58:57 Onychomyc osis 234811574 Active 2017 Onychomyco sis; snomeddesc ription: Onychomyco sis; Report Immunity to Registry: Yes; Notes: feet digits; Not Available [facility] 4 06:58:57 Chronic hepatitis C 295655586 Active 2006 Chronic hepatitis C without mention [...] neg 2015;2017; 12/2021 F2 ; Not Available [facility] 4 06:58:57 Depressiv e disorder 11242142 Active 1996 Depressive disorder, not elsewhere classified ; snomeddesc ription: Depressive disorder; Report Immunity to Registry: Yes; Depressiv e disorder; snomeddesc ription: Depressive disorder; Report Immunity to Registry: Yes; Not Available [facility] 4 06:58:58 Seasonal allergy 132080798 Active 2012 Seasonal allergy; snomeddesc ription: Seasonal allergy; Report Immunity to Registry: Yes; Notes: hx nasal congestion ; Not Available [facility] 4 06:58:58 Loss of appetite 25655423 Active 2012 Anorexia; snomeddesc ription: Loss of appetite; Report Immunity to Registry: Yes; Loss of appetite; snomeddesc ription: Loss of appetite; Report Immunity to Registry: Yes; Not Available [facility] 4 06:58:58 Seizure 26297298 Active 2000 Seizure; snomeddesc ription: Seizure; Report [...] Report Immunity to Registry: Yes; Not Available [facility] 4 06:58:58 Problem Notes None recorded. Medical Equipment None Reported. Allergies Allergen ID Allergen Name Allergen Category Reaction Reaction Severity Criticality Documentation Date Start Date Code Code System Note Provider Name and Address Organization Details Recorded Time 714 Reglan medicatio n Not available Not available Not available 10/31/20232012 9230 RxNorm Comme nt: adver se_ev ent_t ype: 68942 8002; ; Not Available [facility] 4 06:50:47 715 Motrin medicatio n Not available Not available Not available 10/31/20232012 43677 8 RxNorm Comme nt: adver se_ev ent_t ype: 58683 8002; ; Not Available [facility] 4 06:50:47 716 doxycycli ne Not available Not available Not available Not available 10/31/20232017 3640 RxNorm Comme nt: adver se_ev ent_t ype: 06135 8002; ; Not Available [facility] 4 06:50:47 Medications Name [...] qd; VACCINE_ IND: no; SU_FULL_ NAME: Cheryl Martsusan [...] VACCINE_ IND: no; SU_FULL_ NAME: Cheryl Palomo l; Not Available Not Available Not Available fluconazo [...] 90; Duration : 90; 0 refill(s ) 02/26/ 2023 06/15 /2023 completed Duration : 90; VACCINE_ IND: no; [...] Available Liquid Nutrition oral 0 Quantity : 74721; Duration : 30; 0 refill(s ) 09/30 [...] Reed; Not Available Not Available Not Available Robitussi n DM To Go 5cc p qid [...] SU_FULL_ NAME: Cheryl Palomo yordy; VIS_DATE : 19:25:45 .0; Not Available Not Available Not Available Evenity 210 mg/2.34 mL (105 mg/1.17 mL x 2) subcutane ous syringe active Not Available Not Available Not Available Afluria Quad 60 mcg (15 mcg x 4)/0.5 mL intramusc ular susp. quadriva lent Quantity : ; 0 refill(s ) 2018 active VACCINE_ IND: yes; VACCINE_ NAME: influenz a, injectab le, quadriva lent; SU_FULL_ NAME: Cheryl Taylorsusan scales; VIS_DATE : 05:00:00 .0; Not Available [...] Pneumoco ccal conjugat e PCV20, polysacc haride [id number] conjugat e, adjuvant , PF; Not Available Not Available Not Available Vitals Date Recorded Heart rate Body temperature Body weight Systolic blood pressure Diastolic blood pressure Provider Name and Address Organization Details Last Updated DateTime 10/21/2024 98 /min 98.2 [degF] 34346.2 6 g 118 mm[Hg] 97 mm[Hg] [facility] MD [facility] 12:04:23 Social History None recorded. Functional Status None recorded. Mental Status None recorded. Family History Nothing Reported Notes:High cholesterol, Resp onse Property: Yes; , Cancer, other unspecified, Response Property: Yes; , Diabetes, Response Property: Yes; Medical History No medical history recorded. Immunizations Vaccine Type Date Status Note Provider Nam e and Address Organization Details Recorded Time Meningococcal MCV4O 9 completed Not Available [facility] 10/31/2023 06:54:49 zoster live 9 completed Not Available [facility] 10/31/2023 06:54:50 Influenza, split virus, quadrivalent, preservative 9 completed Not Available [facility] 10/31/2023 06:54:50 Influenza, split virus, quadrivalent, preservative 8 completed Not Available [facility] 10/31/2023 06:54:50 Influenza, split virus, quadrivalent, preservative 0 completed Not Available [facility] 10/31/2023 06:54:50 Past Encounters Encounter ID Performer Location Encounter Start Date Encounter Closed Date Diagnosis/Indication Diagnosis SNOMED-CT Code Diagnosis ICD10 Code Diagnosis Note [address] MD Main Office [address] [place] [address] LYNN REDMAN [address] 10/21/2024 12:22:54 10/21/2024 16:48:51 Cachexia associated with AIDS 292673340 R64 B20 improvedco ntinue Serostim 6mg s/c qd abdomen. goal is to increase weight, endurance and muscle masspotent ial side effects reviewed.m ay start decreasing dose in 1-2 months if further weight gainon Boost protein shakesto call with any concerns Human immunodeficiency virus infection 18654353 B20 HIV.Contin ue Biktarvy 1 tab po qd.complia nce reviewedla bs Candidiasi s of the esophagus 77823502 B37.81 on clotrimazo le. swish and spit qd/BID PRN Health Concerns Section Related Observation LastModified by Organization Detai ls LastModified Time None Recorded Concern Status LastModified by Organization Details LastModified Time None Recorded Payers Encounter Date Sequence Insurance Name Policy Number Policy Perry Covered Member ID Perry Member ID Guarantor Name 10/21/2024 1 [facility] - DOS ON OR AFTER 2022 - MEDICARE ADVANTAGE [place] (MEDICARE REPLACEMENT/ADV ANTAGE - PPO) [facility] Juan David [id number] [facility] Juan David Notes Date Note Type Note Provider Name and Address Organization Details Recorded Time 10/21/2024 text/html HIVOn Biktarvy 1 tab po [...] notify site start date and confirm medication. 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 Cheryl Street MD [address] [place] [address], [place], [address], LYNN - [address] MD [facility] 10/21/2024 14:34:28
--- OUTSIDE RECORDS SUMMARY | 2024-10-29 08:09 | XMS_ITS ---
Demographics Address [address] [facility] [address] [place] [address] Preferred Language es Marital Status Unknown Restorationism Affiliation Unknown Race White Ethnic Group Not or Lati no Author Organization [facility] Address [address] [place] [address] Care Team Providers Care Gamewell Operator Name Role Phone Terese Rivera Primary Care Provider Pepe Dangelo [phone] Encounters Encounter Location Date Provider Diagnosis [facility] [address] [place] [address] 10/26/2024 Pepe Stephenson PLAN OF TREATMENT Next Appt Details Provider Name:Pepe Stephenson , 02/12/2025 11:00:00 AM, [address], [address], [place], [address],
--- OUTSIDE RECORDS SUMMARY | 2024-10-29 08:09 | XMS_ITS ---
Demographics Address [address] [facility] [address] [place] [address] Preferred Language es Marital Status Unknown Hindu Affiliation Unknown Race White Ethnic Group Not or Lati no Author Organization [facility] Address [address] [place] [address] Care Team Providers Care Autism Tutor Name Role Phone Terese Rivera Primary Care Provider Pepe Dangelo Unavailable [phone] ALLERGIES Allergen (clinical drug ingredient) Drug/Non Drug [...] 10/09/2024 Encounters Encounter Location Date Provider Diagnosis [facility] [address] [place] [address] 10/09/2024 Pepe Stephenson Dysphagia R13.10 ; Unspecified protein-calorie malnutrition E46 and PEG (percutaneous endoscopic gastrostomy) adjustment/replacement /removal Z43.1 ASSESSMENTS Encounter Date Diagnosis Assessment Notes Treatment Notes Treatment Clinical Notes 10/09/2024 Dysphagia (ICD-10 - R13.10) Once we have the results of the [facility] GI series from 10/2024 and see [...] we have the res ults of the [facility] GI series from 10/2024 and see [...] Name:Pepe Stephenson , 02/12/2025 11:00:00 AM, [address] [facility], [address], [place], [address], Progress Notes * Examination Category [...]
--- OUTSIDE RECORDS SUMMARY | 2024-10-29 08:09 | XMS_ITS | Clinical Summary ---
Author Organization [facility] Address [address] [place] [address] Care Team Providers Care Hot Mill Tin Roller Name Role Phone Zora Arce PA-C Primary Care Provider [phone] Source Comments PLEASE NOTE, if this patient [...] EC tabletIndications:H IV (human immunodeficiency virus infection) ([facility]) Take 1 Tab by mouth [...] NUTRITION) liquidIndications:H IV (human immunodeficiency virus infection) ([facility]) Take 1 Can by mouth [...] nasal sprayIndications:As thma, intermittent, uncomplicated Place 1 Coleman into the nostril(s) as needed for congestion. [...] 01/27/2015 Generalized anxiety disorder 01/27/2015 Seizure disorder ([facility]) 01/27/2015 Major depressive disorder, r ecurrent, severe without psychotic features ([facility]) 01/27/2015 Overview (01/27/2015): Has therapist at [facility] HIV (human immunodeficiency virus infection) ( [facility]) 01/27/2015 Chronic back pain 01/27/2015 Hepatitis [...] Plan of Treatment Not on file [place] Subscriber Plan / Payer ( fective 2015-Present) Name:Benjamin Fall Relation to Subscriber:Self Name:Benjamin Fall Payer ID:[id number] Group ID:Not on file Type:Medicaid Address: [address] DENTAL Care Teams Hot [place] Tin Roller Relationship Specialty Start Date End Date Zora Arce PA-C [address] [place] [address] PCP - General 11/05/18
--- OUTSIDE RECORDS SUMMARY | 2024-10-29 08:09 | XMS_ITS ---
Demographics Address [address] [facility] [address] [place] [address] Preferred Language es Marital Status Unknown Gnosticism Affiliation Unknown Race White Ethnic Group Not or Lati no Author Organization [facility] Address [address] [place] [address] Care Team Providers Care Leadite Heater Name Role Phone Terese Rivera Primary Care Provider Pepe Dangelo Unavailable [phone] REASON FOR VISIT Pt no show Encounters Encounter Location Date Provider Diagnosis [facility] [address] [place] [address] 12/14/2023 Pepe Stephenson PLAN OF TREATMENT Next Appt Details Provider Name:Pepe Stephenson , 02/12/2025 11:00:00 AM, [address], [address], [place], [address],
--- OUTSIDE RECORDS SUMMARY | 2024-10-29 08:09 | XMS_ITS | Patient Health Record ---
Demographics Address [address] [facility] [address] [place] [address] Preferred Language es Marital Status Unknown Sabianist Affiliation Unknown Race White Ethnic Group Not or Lati no Author Organization [facility] Address [address] [place] [address] Care Team Providers Care Assistant Therapy Aide Name Role Phone Terese Rivera Primary Care Provider Pepe Dangelo Unavailable [phone] ALLERGIES Allergen (clinical drug ingredient) Drug/Non Drug [...] malnutrition (E46) Active confirmed Protein calorie malnutrition (963634839) Problem Anorexia (R63.0) Active confirmed Anore tracie (40332669) Problem Dysphagia (R13.10) Active confirmed Dysphagia (71400734) Problem PEG (percutaneous endoscopic gastrostomy) adjustment/repla cement/removal (Z43.1) Active confirmed VITAL SIGNS Blood pressure diastolic 00 mm Hg 10/09/2024 Height 66 in 10/09/2024 Blood pressure systolic 00 mm Hg 10/09/2024 Weight 147 lbs 10/09/2024 BMI 23.72 kg/m2 10/09/2024 Encounters Encounter Location Date Provider Diagnosis [facility] [address] [place] [address] 12/14/2023 Pepe Stephenson [facility] [address] [place] [address] 10/09/2024 Pepe Stephenson Dysphagia R13.10 ; Unspecified protein-calorie malnutrition E46 and PEG (percutaneous endoscopic gastrostomy) adjustment/replacement /removal Z43.1 [facility] [address] [place] [address] 12/14/2023 Pepe Stephenson [facility] [address] [place] [address] 10/26/2024 Pepe Stephenson ASSESSMENTS Encounter Date Diagnosis Assessment Notes Treatment Notes Treatment Clinical Notes 10/09/2024 Unspecified protein-calorie malnutrition (ICD-10 - E46) 10/09/2024 Dysphagia (ICD-10 - R13.10) Once we have the results of the [facility] GI series from 10/2024 and see [...] Provider Name:Pepe Stephenson , 02/12/2025 11:00:00 AM, [address] [place] [address], [address], [place], [address], Insurance Providers Payer Name Payer Address Payer Phone Subscriber Number Group Number Insured Name Patient Relationship to Insured Coverage Start Date Coverage End Date [facility] [address] Attn Claims HOSEA Solorzano [id number] [facility] Self - patient is the insured MEDICAL (GENERAL) HISTORY Medical History History ICD Code Seizures Kidney stones Denies SD,DM,CVA,renal disease HIV infection since age 23-s e[address]-reports neg. hepatitis serologies GERD Mild asthma-Albuterol prn Anxiety Fibromyalgia Gtube placed in July of 2023 HX of DVT's and Pulmonary em boli--2023-sees Dr. Wray--started Eliquis in 06/2024 Surgical History Surgery Date(Month/Year) Hemorrhoidectomy 2003 Eye surgery as a child
[2024-10-29 10:31] VITALS: PULSE 101; O2SAT 98
== END 2024-10-29 08:02 | disposition home or self-care (01) ==
LOC: HO.RESP 08:01
PROVIDERS: PCP Student in an Organized Health Care Education/Training Program; Visit Provider Nurse Practitioner Family
DX: J45.909 Unspecified asthma, uncomplicated (principal)
CPT/HCPCS: 94010; 94640; 94727; 94729

== ENCOUNTER → 2024-10-29 08:04 | Outpatient (BNV) | payer OTHER, SELFPAY | PROVIDERS: PCP Student in an Organized Health Care Education/Training Program; Visit Provider Internal Medicine Pulmonary Disease | DX: J45.909 Unspecified asthma, uncomplicated (principal) | CPT/HCPCS: 94060; 94727; 94729 ==

== ENCOUNTER 2024-11-05 07:24 | Outpatient (RCR) | payer OTHER, SELFPAY ==
[2024-11-05 07:33] VITALS: BP 138/93; PULSE 97; RESP 16; TEMP 37.3; O2SAT 96
[2024-11-05] MEDS: Cosyntropin 0.25 MG VIAL IVPUSH (07:43)
[2024-11-05 08:48] VITALS: BP 134/92; PULSE 84; RESP 16
[2024-11-06 07:38] LABS: Cortisol 30 Minute 12.9 mcg/dL; Cortisol 30 Minute Time 810AM; Cortisol 60 Minute 39.4 mcg/dL; Cortisol 60 Minute Time 3 842AM; Cortisol Baseline 36.4 mcg/dL; Cortisol Baseline Time 1 741AM
[2024-11-06 11:49] LABS: Med (ACTH) Time 742AM
== END 2024-11-05 08:49 | disposition home or self-care (01) ==
LOC: HO.INF 07:24
PROVIDERS: Visit Provider Student in an Organized Health Care Education/Training Program
DX: R79.89 Other specified abnormal findings of blood chemistry (principal)
CPT/HCPCS: 36415; 82533; 96374; J0834

== ENCOUNTER 2024-11-21 11:28 | Emergency (ER) | payer OTHER, SELFPAY ==
--- NOTE | ~2024-11-21 | US_ITS ---
EXAMINATION: US LOWER EXTREMITY VEINS LIMITED FOLLOW UP RIGHT HISTORY: knee pain, hx of PE COMPARISON: There are no prior studies for comparison. TECHNIQUE: Duplex and color Doppler sonographic examination of the deep venous system of the right lower extremity was performed. FINDINGS: The common femoral, superficial femoral, and popliteal veins are patent demonstrating normal compressibility, spontaneous flow, and augmentation. There is a normal color and spectral Doppler waveform appearance of the visualized deep venous system above the knee. The posterior tibial and peroneal veins are patent. There is a complex fluid collection in the popliteal fossa measuring 3.9 x 1.5 x 2.9 cm which likely represents a Andres's cyst. US/US venous duplex LE RT IMPRESSION: No evidence of acute DVT in the right lower extremity. Probable 3.9 x 1.5 x 2.9 cm complicated popliteal fossa Andres's cyst. Electronically signed by: Pepe Littlejohn MD 11/21/2024 01:41 PM EDT
[2024-11-21 11:34] VITALS: BP 124/80; PULSE 90; RESP 16; TEMP 36.6; O2SAT 94; BMI 23.6
--- NOTE | 2024-11-21 11:34 | ED.GENADULT ---
HPI - General Adult General Chief complaint: Extremity Injury, Lower Stated complaint: blood clot on leg Time Seen by Provider: 11/21/24 12:34 Source: patient Mode of arrival: ambulatory Limitations: no limitations History of Present Illness ED Provider: Chaparrita Thomas PA-C HPI narrative: 59 yo male with history of HIV on HAART, history of PE on eliquis, asthma, kidney stones, hepatitis C, empyema, depression, who present to the ER for evaluation of pain and swelling behind the right knee. he has had pain in the knee for a long time but the swelling and bump behind the knee has been new in the last few days. he reportedly had a referral to get a cyst drained but was then told to come to the ER to make sure he didnt have a blood clot. he has been compliant with his eliquis. no chest pain or SOB. no redness of the leg. MD complaint: posterior right knee pain Onset (ago): day(s) Location: right and lower extremity Radiation: non-radiation Severity: moderate Severity scale (1-10): 5 Quality: aching Pain Consistency: intermittent Relieving factors: rest Exacerbating factors: movement Associated symptoms: denies other symptoms Treatments prior to arrival: none Related Data Home Medications ?Medication ?Instructions ?Recorded ?Confirmed calcium 600 mg (as 1 tab feeding tube BID@1200,1800 12/16/23 10/17/24 carbonate)-vitamin D3 20 mcg (800 unit) tablet ferrous gluconate 324 mg (38 mg 324 mg feeding tube BID 12/16/23 10/17/24 iron) tablet risperidone 3 mg tablet 3 mg feeding tube BEDTIME 12/16/23 10/17/24 omeprazole 10 mg capsule,delayed 10 mg feeding tube DAILY@0630 PRN 01/10/24 10/17/24 release Acid Reflux albuterol sulfate 90 mcg/actuation 2 puff inhalation Q6H PRN wheezing 03/07/24 10/17/24 aerosol inhaler (Ventolin HFA) amlodipine 5 mg tablet 5 mg PO DAILY 04/14/24 10/17/24 fluconazole 10 mg/mL oral 100 mg feeding tube DAILY 04/14/24 10/17/24 suspension megestrol 625 mg/5 mL (125 mg/mL) 5 ml feeding tube DAILY 04/14/24 10/17/24 oral suspension diphenhydramine HCl 25 mg capsule 50 mg PO BEDTIME 05/07/24 10/17/24 (Benadryl) propranolol 120 mg capsule,24 120 mg PO DAILY 05/07/24 10/17/24 hr,extended release somatropin 6 mg subcutaneous 6 mg subcut DAILY 05/07/24 10/17/24 solution (Serostim) Previous Rx's ?Medication ?Instructions ?Recorded bictegravir 50 mg-emtricitabine 1 tab PO DAILY #14 tabs 08/02/23 200 mg-tenofovir alafenam 25 mg tablet (Biktarvy) gabapentin 600 mg tablet 600 mg feeding tube TID #20 tabs 08/02/23 mirtazapine 30 mg tablet 60 mg (2 x 30 mg) feeding tube 08/02/23 BEDTIME #20 tabs clonazepam 1 mg tablet 1 mg feeding tube DAILY #10 tabs 03/20/24 tramadol 50 mg tablet 50 mg feeding tube BID PRN Pain 03/20/24 (Scale Score 7-10) #20 tabs lorazepam 2 mg/mL oral concentrate See Rx Instructions .Route 05/07/24 (Lorazepam Intensol) .COMPLEX #30 mL romosozumab-aqqg 210 mg/2.34 210 mg (2.34 mL) subcut .once a 10/17/24 mL(105 mg/1.17 mL x2)subcutaneous month #2.34 mL syringe (Evenity) Allergies Allergy/AdvReac Type Severity Reaction Status Date / Time Seasonal Allergies Allergy Intermediate Eye Verified 11/21/24 11:38 Drainage codeine Allergy Mild Rash Verified 11/21/24 11:38 [From Tylenol-Codeine #3] levofloxacin [From Levaquin] Allergy Mild Rash Verified 11/21/24 11:38 metoclopramide [From Reglan] Allergy Mild Rash Verified 11/21/24 11:38 acetaminophen Allergy Unknown Rash Verified 11/21/24 11:38 [Tylenol-Codeine #3] Penicillins [PENICILLINS] Allergy Unknown Rash Verified 11/21/24 11:38 ibuprofen [From Motrin] AdvReac Unknown Reflux Verified 11/21/24 11:38 Review of Systems Review of Systems: Yes all other systems are reviewed and are negative [facility] Past Medical History Medical History (Updated 11/22/24 @ 07:41 by HOSEA Lou) Lower urinary tract symptoms Hypogonadism in male Low serum cortisol level Adrenal hyperplasia Osteoporosis Height loss HIV (human immunodeficiency virus infection) Asthma Dysphagia Adult failure to thrive Adult failure to thrive Multiple rib fractures History of empyema of pleura (01/05/23) Hypertension Closed fracture of leg Hepatitis C Kidney stones Pleuritic chest pain Pneumonia Substance abuse Hemorrhoids Depression HIV (human immunodeficiency virus infection) Asthma Surgical History H/O hemorrhoidectomy Family History Family History Maternal Grandmother Lung cancer Maternal Aunt Lung cancer Mother Lung cancer Social History Social History Household Members: Caregiver Household Members Other:: 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 Housing: Apartment Do you presently have visiting nurse or other home services: Yes Alcohol intake: never Patient Tobacco Use Status: Former Tobacco user Tobacco use type: Cigarette e-Cigarette/Vaping Use: Never Used Second Hand Smoke Exposure: No Substance Use Type: Crack/Cocaine Advance Directives: Yes Advance Directives on File: Yes Advance Directives Date on File: 04/25/21 Do you have a plan to hurt others: No Plan service: No Current occupational status: disabled Gender identity: Male Physical Exam ED Vital Signs: Vital Signs - 24 hr 11/21/24 11:34 11/21/24 13:53 Temperature 97.9 F 97.9 F Pulse Rate 90 90 Respiratory Rate 16 16 Blood Pressure 124/80 124/80 Pulse Oximetry 94 94 Oxygen Delivery Method Room Air Room Air BMI result Body Mass Index 23.6 Appearance: Alert. Oriented X3. No acute distress. HEENT: normal inspection CVS: Normal heart rate and rhythm. Pulses normal. Respiratory: No respiratory distress. Skin: Skin warm and dry. Normal skin color. Normal skin turgor. No rashes. Extremities: no peripheral edema. rle without anterior swelling, no calf tenderness. popliteal area on the right side with fullness and tenderness. pain with passive flexion of the knee. NV intact distally. leg is warm Neuro: Oriented X 3. No motor deficit. No sensory deficit. Course Course Course Narrative: This is a rapid medical exam performed by Cristela Macdonald NP: Additional HPI, ROS, PE not included below will be deferred to primary provider. Patient is a 59-year-old German speaking male with history of HIV, asthma, hepatitis C, HTN presenting with complaint of right knee pain. Was seen at urgent care, diagnosed with a cyst and referred to surgeon who sent patient back to PCP for clearance prior to removal of cyst. PCP concerned for blood clot. Family states patient is currently on Eliquis. Plan: labs, U/S Medical Decision Making Medical Decision Making [facility] Narrative: 59 yo male presenting for evaluation of right popliteal swelling and pain for the last few days. no injury or trauma. eliquis compliant. US without DVT, showing bakers cyst placed in NIMA wrap for compression counseled on diagnosis. stable for d/c home Differential Diagnosis Differential Diagnoses: The differential diagnosis associated with the presentation includes bakers cyst, ruptured bakers cyst, cellulitis, DVT Lab Data [facility] Lab Attestation statement: I reviewed the patient's lab results. leukopenia, no metabolic derangements 11/21/24 11:51 11/21/24 11:51 Labs: Lab Results 11/21/24 Range/Units 11:51 WBC 2.8 L (4.8-10.8) X10*3/uL RBC 4.50 L (4.60-5.80) X10*6/uL Hgb 14.7 (14.0-18.0) g/dl Hct 42.2 (42.0-52.0) % MCV 93.8 (80.0-98.0) fL MCH 32.7 (27.0-33.0) pg MCHC 34.8 (31.0-36.0) g/dl RDW 13.2 (11.0-16.0) % Plt Count 169 (160-400) X10*3/uL MPV 11.3 (9.4-12.4) fL Immature Gran % (Auto) 0.4 (0.0-0.4) % Neut % (Auto) 30.4 L (45-73) % Lymph % (Auto) 47.1 H (20-40) % [place] % (Auto) 14.5 H (2-11) % Eos % (Auto) 6.5 H (0-4) % Baso % (Auto) 1.1 (0-2) % Lymph # (Auto) 1.3 (1.2-4.9) X10*3/uL [place] # (Auto) 0.4 (0.1-1.2) X10*3/uL Eos # (Auto) 0.2 (0.0-0.4) X10*3/uL Baso # (Auto) 0.0 (0.0-0.2) X10*3/uL Abs Immat Gran (auto) 0.01 (0.00-0.03) X10*3/uL Absolute Neuts (auto) 0.8 L (2.0-8.3) x10*3/uL Absolute Nucleated RBC 0.000 (0.0-0.012) X10*3/uL Nucleated RBC % (auto) 0.0 (0.0-0.2) /100WBC Smear Tech's Comments VERIFIED PT 13.5 H (10.9-12.4) SEC INR 1.2 H (0.9-1.1) Sodium 144 (135-145) mmol/L Potassium 3.9 (3.3-5.1) mmol/L Chloride 109 H (96-108) mmol/L Carbon Dioxide 27 (22-29) mmol/L Anion Gap 12 (12-20) BUN 6 L (9-16) mg/dL Creatinine 0.87 (0.5-1.4) mg/dL Estim Creat Clear Calc 81.4 Estimated GFR > 60 Random Glucose 127 H (60-115) mg/dL Calcium 9.8 (8.4-10.2) mg/dL Total Bilirubin 0.3 (0.0-1.0) mg/dL AST 28 (5-37) U/L ALT 29 (0-40) U/L Alkaline Phosphatase 92 (39-117) U/L Total Protein 7.3 (6.5-8.0) g/dL Albumin 3.9 (3.5-5.0) g/dL Independent Interpretation I performed an independent interpretation of an: Ultrasound Interpretation: no acute dvt appreciated, cyst noted Radiology Impression Discussion of test interpretation with radiology: I have reviewed the radiologist's reading. External Record Review External record reviewed: Office record, Outpatient record, Prior outpatient labs and Prior outpatient radiology Prescription Management I considered prescription management with: Pain Medication and Antibiotic Chronic Conditions Patient?s care impacted by: Other (HIV, PE) Critical Care Time Critical Care Time Critical Care Time: No Discharge Plan Discharge Clinical Impression: Andres's cyst Patient Disposition: Home, Self-Care Instructions: Bakers Cyst (ED) Additional Instructions: continue your eliquis your ultrasound did not show any evidence of DVT, it showed a Andres's cyst wear the provided NIMA wrap for compression and support If you develop new or worsening symptoms call 911 or come back to the ER for further evaluation. US/US venous duplex LE RT IMPRESSION: No evidence of acute DVT in the right lower extremity. Probable 3.9 x 1.5 x 2.9 cm complicated popliteal fossa Andres's cyst. Prescriptions: No Action gabapentin 600 mg tablet 600 mg feeding tube TID Qty: 20 0RF mirtazapine 30 mg tablet 60 mg feeding tube BEDTIME Qty: 20 0RF Biktarvy 50-200-25 mg tablet 1 tab PO DAILY Qty: 14 0RF Rx Instructions: Ok to crush and give via feeding tube risperidone 3 mg tablet 3 mg feeding tube BEDTIME ferrous gluconate 324 mg (38 mg iron) tablet 324 mg feeding tube BID calcium carbonate-vitamin D3 600 mg-20 mcg (800 unit) tablet 1 tab feeding tube BID@1200,1800 omeprazole 10 mg Capsule,Delayed Release(Dr/Ec) 10 mg feeding tube DAILY@0630 PRN (Reason: Acid Reflux) albuterol sulfate [Ventolin HFA] 90 mcg/actuation HFA aerosol inhaler 2 puff inhalation Q6H PRN (Reason: wheezing) clonazepam 1 mg tablet 1 mg feeding tube DAILY Qty: 10 0RF tramadol 50 mg tablet 50 mg feeding tube BID PRN (Reason: Pain (Scale Score 7-10)) Qty: 20 0RF lorazepam [Lorazepam Intensol] 2 mg/mL concentrate See Rx Instructions .ROUTE .COMPLEX Qty: 30 0RF Rx Instructions: Take 0.25 mL (0.5 mg) to 1 mL (2 mg) by tongue or under the tongue every 4 hours as needed for anxiety or agitation Hospice patient Serostim 6 mg recon soln 6 mg subcut DAILY propranolol 120 mg capsule,extended release 24hr 120 mg PO DAILY diphenhydramine HCl [Benadryl] 25 mg Capsule 50 mg PO BEDTIME amlodipine 5 mg tablet 5 mg PO DAILY fluconazole 10 mg/mL suspension for reconstitution 100 mg feeding tube DAILY megestrol 625 mg/5 mL (125 mg/mL) suspension 5 ml feeding tube DAILY Evenity 210mg/2.34mL ( 105mg/1.17mLx2) syringe 210 mg subcut .once a month Qty: 2.34 11RF Rx Instructions: given as two separate 105-mg injections administered immediately one after the other. Interventions: ED Discharge Assessment Last Done: 11/21/24 13:53 Discharge Date/Time: 11/21/24 14:00 Print Language: German
[2024-11-21 12:00] LABS: Basophils Percent Auto 1.1 % (0-2); Eosinophils Absolute Auto 0.2 X10*3/uL (0.0-0.4); Eosinophils Percent Auto 6.5 % (0-4); Hematocrit 42.2 % (42.0-52.0); Hemoglobin 14.7 g/dl (14.0-18.0); Imm Gran Abs Auto 0.01 X10*3/uL (0.00-0.03); Imm Gran Pct Auto 0.4 % (0.0-0.4); Lymphocytes Absolute Auto 1.3 X10*3/uL (1.2-4.9); Lymphocytes Percent Auto 47.1 % (20-40); MANUAL DIFF FLAG SCAN; Mean Corpuscular HGB Conc 34.8 g/dl (31.0-36.0); Mean Corpuscular Hemoglobin 32.7 pg (27.0-33.0); Mean Corpuscular Volume 93.8 fL (80.0-98.0); Mean Platelet Volume 11.3 fL (9.4-12.4); Monocytes Absolute Auto 0.4 X10*3/uL (0.1-1.2); Monocytes Percent Auto 14.5 % (2-11); Neutrophils Absolute Auto 0.8 x10*3/uL (2.0-8.3); Neutrophils Percent Auto 30.4 % (45-73); Platelet Count 169 X10*3/uL (160-400); Red Cell Distribution Width 13.2 % (11.0-16.0); SCAN SMEAR FLAG 1; White Blood Count 2.8 X10*3/uL (4.8-10.8)
[2024-11-21 12:01] LABS: INTERNATIONAL NORM RATIO 1.2 (0.9-1.1); Prothrombin Time 13.5 SEC (10.9-12.4)
[2024-11-21 12:15] LABS: Alanine Aminotransferase 29 U/L (0-40); Albumin Level 3.9 g/dL (3.5-5.0); Alkaline Phosphatase 92 U/L (39-117); Anion Gap 12 (12-20); Aspartate Amino Transferase 28 U/L (5-37); Bilirubin Total 0.3 mg/dL (0.0-1.0); Blood Urea Nitrogen 6 mg/dL (9-16); Calcium 9.8 mg/dL (8.4-10.2); Carbon Dioxide 27 mmol/L (22-29); Chloride 109 mmol/L (96-108); Creatinine Clr Calc Pharmacy 81.4; Estimated Glomerular Filt Rate > 60; Glucose Random 127 mg/dL (60-115); Potassium 3.9 mmol/L (3.3-5.1); Sodium 144 mmol/L (135-145); Total Protein 7.3 g/dL (6.5-8.0)
[2024-11-21 12:19] LABS: SLIDE REVIEW VERIFIED
[2024-11-21 13:53] VITALS: BP 124/80; PULSE 90; RESP 16; TEMP 36.6; O2SAT 94
--- OUTSIDE RECORDS SUMMARY | 2024-11-21 14:07 | XMS_ITS | Data Portability ---
Author Organization [employer] [facility] [place] [facility] - [employer] Address [address] [place] [id number] Care Team Providers Care Gameplay Engineer Name Role Phone HIM [facility] OTHER [facility] OTHER [phone] Assessment No assessment recorded. Plan of Treatment [...] Not available Not available Not available 07/08/2024 [id number] RxNorm Not Available [facility] - production 4 [...] SNOMED-CT Code Diagnosis ICD10 Code Diagnosis Note [id number] ERLINDA HOLLIDAY MD Main - [facility] [address] [place] [phone] 03/06/2024 16:50:44 03/07/2024 17:38:50 Lethargy [id number] R53.83 Evaluation in the field was performed by my military communications specialist colleague. As noted above, I provided real-time [...] He is afebrile. Per discussion with the military communications specialist, the patient looked lethargic, walked with an [...] n. The patient was transferre d to [facility] for further evaluation and treatment. His PCP was informed of the transfer to the ED. Primary care, consider__ _ Dispositio n:[facility] Health Concerns Section Related Observation LastModified by Organization Jaz[employer] ls LastModified Time None Recorded Concern Status LastModified by Organization Details LastModified Time None Recorded Advance Directives Directive None Recorded Payers Encounter Date Sequence Insurance Name Policy Number Policy Perry Covered Member ID Perry Member ID Guarantor Name 03/06/2024 1 [facility] - DOS ON OR AFTER 2022 - DUAL ELIGIBLE - SKILLED NURSING OPTIONS AND ONE CARE (MEDICARE REPLACEMENT/ADV ANTAGE - HMO) Benjamin Juan David [id number] [facility] Juan David Notes Date Note Type [...] ................. ..... CRC Nurse Triage Notes (Kelsi Mrashall): Comments: CRC RN DID NOT NEED further info ................. ................. ................. ................. ................. ................. ................. ................. ..... Transcript Clerk Note From Francisco Ley: Dispatched to above address for headache sore throat. On arrival patient met [facility] at the door. Initially patient denied calling for medical help or having any symptoms. [facility] confirmed patient name and address, after this [...] focus on current situation, poor affect, lethargic. [facility] contacted, spoke with Dr. Holliday, advised of patient complaints and exam findings. [facility] agreed further evaluation in the ER is necessary for this patient. Patient agreed to this. Patients neighbor who assists patient arrived to check on him. She reports this doesn't seem like his normal mentation but cannot be sure. 911 called. [facility] responded. Verbal report given to [facility] Transcript Clerk. [facility] military communications specialist took over patient care. [facility] clear. [facility]. ................. ................. ................. ................. ................. ................. ................. ................. ..... Disposition: Shahzad HOLLIDAY MD [address] [facility],[address], [place], [address], [place] KEERTHI BLOCK 03/06/2024 18:02:19
--- OUTSIDE RECORDS SUMMARY | 2024-11-21 14:08 | XMS_ITS ---
Demographics Address [address] [place] [address] Preferred Language es Marital Status Unknown Scientologist Affiliation Unknown Race White Ethnic Group Not or Lati no Author Organization [facility] Address [address] [place] [address] Care Team Providers Care Medical Laboratory Technicians Name Role Phone Terese Rivera Primary Care Provider Pepe Dangelo Unavailable [phone] REASON FOR VISIT Pt no show Encounters Encounter Location Date Provider Diagnosis [facility] [address] [place] [address] 12/14/2023 Pepe Stephenson Plan Of Treatment Next Appt Details Provider Name:Pepe Stephenson , 02/12/2025 11:00:00 AM, [address], [address], [place], [phone], Progress Notes * VICKIE DUFFYDOB:1965 (58 yo M)Acc No.[id number]:12/14/2023 Patient:?VICKIE DUFFY :1965???Age:58 Y???Sex:Male Address:[address], [place], [address] * true * Date:? Generated for Vanesai berenice/Hannah/eTransmitting on:?11/21/2024 02:08 PM EDT
--- OUTSIDE RECORDS SUMMARY | 2024-11-21 14:08 | XMS_ITS ---
Demographics Address [address] [place] [address] Preferred Language es Marital Status Unknown Latter Day Affiliation Unknown Race White Ethnic Group Not or Lati no Author Organization [facility] Address [address] [place] [address] Care Team Providers Care Winch Operator Name Role Phone Terese Rivera Primary Care Provider Pepe Dangelo Unavailable [phone] Allergies Allergen (clinical drug ingredient) Drug/Non Drug Allergy documented on EMR Reaction Allergy Type Onset Date Status Penicillin Unknown Drug Allergy Active Motrin Unknown Drug Allergy Active codeine Codeine Sulfate Unknown Drug Allergy A ctive REASON FOR VISIT Patient presents today for a PATIENT RECEIVED RECALL LETTER Medications Medication SIG (Take, Route, Frequency, Duration) [...] AL CHI 90 Oral for 90 Active Social History Tobacco Use: Social History Observation Description Date Details (start date - stop date) Never Smoker NA - NA Tobacco Use/Smoking Question Answer Notes Patient is a nonsmoker Alcohol Screen Question Answer Notes Did you have a drink containing alcohol in the p ast year? No Points 0 Interpretation Negative Section Notes: Nonsmoker; no alcohol Problems Problem Type SNOMED Code ICD Code Onset Dates Problem Status W/U Status Risk Notes Problem PEG (percutaneous endoscopic gastrostomy) adjustment/repla cement/removal (Z43.1) Active confirmed Vital Signs Blood pressure systolic 00 mm Hg 10/09/19 25 Blood pressure diastolic 00 mm Hg 025 Height 66 in 10/09/2024 Weight 147 lbs 10/09/2024 BMI 23.72 kg/m2 10/09/2024 Encounters Encounter Location Date Provider Diagnosis [facility] [address] [place] [address] 10/09/2024 Pepe Stephenson Dysphagia R13.10 ; Unspecified protein-calorie malnutrition E46 and PEG (percutaneous endoscopic gastrostomy) adjustment/replacement /removal Z43.1 Assessments Encounter Date Diagnosis (ICD Code) Assessment Notes Treatment Notes Treatment Clinical Notes Section Notes 10/09/2024 Dysphagia (ICD-10 - R13.10) Once we have the results of the [facility] GI series from 10/2024 and see [...] taking the Gtube out in the office. Overall, Vickie appears well considering how ill he was at the time of the G-tube placement. At this point it sounds like he is taking in oral nutrition both adequately and safely. He may very well no longer need the G-tube on a long-term basis. I have given Mariaelena the below instructions as to my plan in regard to eventually removing the G-tube in the office in several months. As long as he is eating well, maintaining his weight, not requiring any further supplemental nutrition via the G-tube, and has a normal barium swallow without any signs of aspiration, we can then eventually remove the G-tube at the next office visit. We shall schedule his next visit for the latter part of the Spring such that he will hopefully be off of his Eliquis in regard to his DVT and pulmonary emboli that he had back in June,. If he happens to still be on the Eliquis at the time of the next visit when we plan to remove the G-tube, he will need to stop it for 3 days before that. I did advise Vickie to contact me before that if he has any problems or questions I can be of assistance with. Vickie was comfortable with this plan. Thank you again for allowing me to participate in Vickie's care. I shall continue to keep you advised of his progress. 10/09/2024 Unspecified protein-calorie malnutrition (ICD-10 - E46) Overall, Vickie appears well considering how ill he was at the time of the G-tube placement. At this point it sounds like he is taking in oral nutrition both adequately and safely. He may very well no longer need the G-tube on a long-term basis. I have given Mariaelena the below instructions as to my plan in regard to eventually removing the G-tube in the office in several months. As long as he is eating well, maintaining his weight, not requiring any further supplemental nutrition via the G-tube, and has a normal barium swallow without any signs of aspiration, we can then eventually remove the G-tube at the next office visit. We shall schedule his next visit for the latter part of the Spring such that he will hopefully be off of his Eliquis in regard to his DVT and pulmonary emboli that he had back in June,. If he happens to still be on the Eliquis at the time of the next visit when we plan to remove the G-tube, he will need to stop it for 3 days before that. I did advise Vickie to contact me before that if he has any problems or questions I can be of assistance with. Vickie was comfortable with this plan. Thank you again for allowing me to participate in Vickie's care. I shall continue to keep you advised of his progress. 10/09/2024 PEG (percutaneous endoscopic gastrostomy) adjustment/repla cement/removal (ICD-10 - Z43.1) Overall, Vickie appears well considering how ill he was at the time of the G-tube placement. At this point it sounds like he is taking in oral nutrition both adequately and safely. He may very well no longer need the G-tube on a long-term basis. I have given Vickie and Good the below instructions as to my plan in regard to eventually removing the G-tube in the office in several months. As long as he is eating well, maintaining his weight, not requiring any further supplemental nutrition via the G-tube, and has a normal barium swallow without any signs of aspiration, we can then eventually remove the G-tube at the next office visit. We shall schedule his next visit for the latter part of the Spring such that he will hopefully be off of his Eliquis in regard to his DVT and pulmonary emboli that he had back in June,. If he happens to still be on the Eliquis at the time of the next visit when we plan to remove the G-tube, he will need to stop it for 3 days before that. I did advise Vickie to contact me before that if he has any problems or questions I can be of assistance with. Vickie was comfortable with this plan. Thank you again for allowing me to participate in Vickie's care. I shall continue to keep you advised of his progress. Plan Of Treatment Treatment Notes Assessment Notes Dysphagia Once we have the res ults of the [facility] GI series from 10/2024 and see [...] Name:Pepe Stephenson , 02/12/2025 11:00:00 AM, [address], [address], [place], [address], Progress Notes * VICKIE DUFFYDOB:1965 (59 yo M)Acc No.[id number]:10/09/2024 Progress Notes Patient:?VICKIE DUFFY Provider:?Pepe Stephenson MD :1965???Age:59 Y???Sex:Male Hansel e:10/09/2024 Address:[address] [place], [place] [id number] Pcp:Terese Keenan Subjective: * Chief Complaints: * ???Patient presents today fo r a PATIENT RECEIVED RECALL LETTER * HPI: ???incontinence:? I saw Vickie in the office today for evaluation of his previous history of dysphagia with associated weight loss and subsequent placement of a G-tube. He is accompanied by his [employer], Good, who helped with interpreting. ?I last saw Vickie in July of 2023 when he was hospitalized with progressive dysphagia, malnutrition, and weight loss. A G-tube was placed endoscopically at that time. Subsequent to that he has actually been doing very well and has gained about 40 pounds. He is only using the G-tube for 3 cans of Ensure daily and is otherwise eating and drinking liquids orally without any difficulty. He denies any choking, dysphagia, nor any recent history of pneumonias. He did have some DVTs and pulmonary emboli last Fall at [facility] and has been on Eliquis for that since early June of 2024. He is scheduled to see Dr. Wray for follow up next month. He is also scheduled for a barium swallow next month with the speech and swallowing department through [facility]. ?Vickie reports that he generally feels well and denies any abdominal pains, jaundice, nausea, vomiting, significant heartburn, nor early satiety. He reports his bowel movements have been fairly regular and without any signs of bleeding. He is interested in having the G-tube removed. * ROS:?General/Constitutional:?Change in appetite?denies.?Chills?denies.?Fatigue?denies.?Ophthalmologic:?Patient denies? Negative..?ENT:?Patient denies?Negative..?Respiratory:?Patient denies?No coughing/hemoptysis..?Cardiovascular:?Patient denies? No chest pain/orthopnea..?Gastrointestinal:?Comments?See HPI for details.?Genitourinary:?Patient denies? No dysuria/hematuria..?Musculoskeletal:?Patient denies? No specific arthralgias/myalgias..?Skin:?Patient denies?No rash/pruritus..?Neurologic:?Patient denies? No headaches/seizures..?Psychiatric:?Admits?Anxiety.? * Medical History:? * Surgical History:?Hemorrhoid ectomy 2004Eye surgery as a child * Hospitalization/Major Diagno stic Procedure:?No Hospitalization History. * Family History:?Father: dece ased.?Mother: , Kidney cancer .? No colorectal cancer. * Social History:?Tobacco Use:?Tobacco Use/Smoking?Patient is a?nonsmoker.?Drugs/Alcohol:?Alcohol Screen?Did you have a drink containing alcohol in the past year??No,?Points?0,?Interpretation?Negative.?Miscellaneous:?Marital status: single. Occupation: Retired from [employer]--had worked their for 27 years. ???Nonsmoker; no alcohol. * Medications:?TakingTylenol M ulti Vitamin/Minerals Dilantin 100 MG Capsule 1 capsule Orally TIDKlonoPIN 2 MG Tablet 1 tablet Orally TIDAlbuterol Sulfate HFA 108 (90 Base) MCG/ACT Aerosol Solution TOME DOS INHALACIONES POR V A ORAL CADA SEIS HORAS CUANDO SEA NECESARIO PARA LA SIBILANCIA Inhalation Glycopyrrolate 1 MG Tablet Oral Vitamin C 250 MG Tablet TOME 1 TABLETA POR V A ORAL TODOS LOS D Oral Gabapentin 600 MG Tablet Oral Eliquis 5 MG Tablet TOME 1 TABLETA POR V A ORAL DOS VECES AL D A Oral Biktarvy 50-200-25 MG Tablet TOME 1 TABLETA POR V A ORAL TODOS LOS D FOR 30 DAYS Oral Serostim 6 MG Solution Reconstituted Subcutaneous traMADol HCl 50 MG Tablet Oral Pilocarpine HCl 5 MG Tablet TOME 1 TABLETA POR VIA ORAL ITALO VECES AL CHI 90 Oral Mirtazapine 30 MG Tablet TAKE 2 TABLETS (60 MG) BY MOUTH AT BEDTIME. Oral Ventolin HFA 108 (90 Base) MCG/ACT Aerosol Solution TOME DOS INHALACIONES POR V A ORAL CADA SEIS HORAS CUANDO SEA NECESARIO PARA LA SIBILANCIA Inhalation risperiDONE 3 MG Tablet Oral clonazePAM 1 MG Tablet TOME BAHMAN TABLETA POR V A ORAL TODOS LOS D Oral Propranolol HCl ER 120 MG Capsule Extended Release 24 Hour Oral Ferrous Gluconate 324 (38 Fe) MG Tablet Oral Calcium 600/Vitamin D3 600-20 MG-MCG Tablet Oral amLODIPine Besylate 5 MG Tablet TOME 1 TABLETA POR V A ORAL TODOS LOS D Oral Brimonidine Tartrate-Timolol 0.2-0.5 % Solution INSTILL 1 DROP INTO BOTH EYES TWICE A DAY Ophthalmic Taking Tylenol Taking Multi Vitamin/Minerals Taking Dilantin 100 MG Capsule 1 capsule Orally TIDTaking KlonoPIN 2 MG Tablet 1 tablet Orally TIDTaking Albuterol Sulfate HFA 108 (90 Base) MCG/ACT Aerosol Solution TOME DOS INHALACIONES POR V A ORAL CADA SEIS HORAS CUANDO SEA NECESARIO PARA LA SIBILANCIA Inhalation Taking Glycopyrrolate 1 MG Tablet Oral Taking Vitamin C 250 MG Tablet TOME 1 TABLETA POR V A ORAL TODOS LOS D Oral Taking Gabapentin 600 MG Tablet Oral Taking Eliquis 5 MG Tablet TOME 1 TABLETA POR V A ORAL DOS VECES AL D A Oral Taking Biktarvy 50-200-25 MG Tablet TOME 1 TABLETA POR V A ORAL TODOS LOS D FOR 30 DAYS Oral Taking Serostim 6 MG Solution Reconstituted Subcutaneous Taking traMADol HCl 50 MG Tablet Oral Taking Pilocarpine HCl 5 MG Tablet TOME 1 TABLETA POR VIA ORAL ITALO VECES AL CHI 90 Oral Taking Mirtazapine 30 MG Tablet TAKE 2 TABLETS (60 MG) BY MOUTH AT BEDTIME. Oral Taking Ventolin HFA 108 (90 Base) MCG/ACT Aerosol Solution TOME DOS INHALACIONES POR V A ORAL CADA SEIS HORAS CUANDO SEA NECESARIO PARA LA SIBILANCIA Inhalation Taking risperiDONE 3 MG Tablet Oral Taking clonazePAM 1 MG Tablet TOME BAHMAN TABLETA POR V A ORAL TODOS LOS D Oral Taking Propranolol HCl ER 120 MG Capsule Extended Release 24 Hour Oral Taking Ferrous Gluconate 324 (38 Fe) MG Tablet Oral Taking Calcium 600/Vitamin D3 600-20 MG-MCG Tablet Oral Taking amLODIPine Besylate 5 MG Tablet TOME 1 TABLETA POR V A ORAL TODOS LOS D Oral Taking Brimonidine Tartrate-Timolol 0.2-0.5 % Solution INSTILL 1 DROP INTO BOTH EYES TWICE A DAY Ophthalmic DiscontinuedNexIUM 40mg Atripla Xanax Aspirin 325mg Aleve Xanax 2mg BIDColyte with Flavor Packs 227.1 GM Solution Reconstituted as directed Orally as directedMedication List reviewed and reconciled with the patientDiscontinued NexIUM 40mg Discontinued Atripla Discontinued Xanax Discontinued Aspirin 325mg Discontinued Aleve Discontinued Xanax 2mg BIDDiscontinued Colyte with Flavor Packs 227.1 GM Solution Reconstituted as directed Orally as directedMedication List reviewed and reconciled with the patient * Allergies:?Codeine SulfateMo trinPenicillinyes[Allergies Verified] Objective: * Vitals:?Wt: 147 lbs, Ht: 66 in, BMI:23.72 Index, BP: 00/00 mm Hg. * Examination: ???General Examination: ?GENERAL APPEARANCE:?pleasant,?thin, well developed,? alert male in no acute distress.?EYES:?sclera non-icteric.?ORAL CAVITY:?mucosa moist.?NECK/THYROID:?no cervical lymphadenopathy, neck supple.?SKIN:?nonjaundiced, no spider angiomata..?HEART:?S1, S2 normal.?LUNGS:?clear to auscultation bilaterally.?ABDOMEN:?normal bowel sounds, no guarding or rigidity, no hepatosplenomegaly, no masses palpable, soft, nontender, nondistended. The Gtube site appears clean.?EXTREMITIES:?no edema.?NEUROLOGIC:?alert and oriented.? Assessment: * Assessment: 1.?Unspecified protein-calor ie malnutrition - E46 (Primary)?2.?Dysphagia - R13.10?3.?PEG (percutaneous endoscopic gastrostomy) adjustment/replacement/removal - Z43.1? Overall, Vickie appears well considering how ill he was at the time of the G- tube placement. At this point it sounds like he is taking in oral nutrition both adequately and safely. He may very well no longer need the G-tube on a long-term basis. I have given Vickie and Good the below instructions as to my plan in regard to eventually removing the G-tube in the office in several months. As long as he is eating well, maintaining his weight, not requiring any further supplemental nutrition via the G-tube, and has a normal barium swallow without any signs of aspiration, we can then eventually remove the G-tube at the next office visit. We shall schedule his next visit for the latter part of the Spring such that he will hopefully be off of his Eliquis in regard to his DVT and pulmonary emboli that he had back in June,. If he happens to still be on the Eliquis at the time of the next visit when we plan to remove the G-tube, he will need to stop it for 3 days before that. I did advise Vickie to contact me before that if he has any problems or questions I can be of assistance with. Vickie was comfortable with this plan. Thank you again for allowing me to participate in Vickie's care. I shall continue to keep you advised of his progress. Plan: * Treatment: * Procedure Codes:?G9711 PT W/ DX PAST HX TOTAL COLECTOMY/[id number] TOBACCO NON- [id number] BP SCR NOT PRFRM REC REASON NOS * Preventive Medicine:? ??Screenings:?Fall Risk Screening?Fall Risk Assessment:?No falls in the past year,?Screening:?No falls in the past year,?Assessment:?Not performed, no reason specified,?Plan of Care:?Not documented, no reason specified.? * Follow Up:?January or February for o ffice Gtube removal * * Sign off status: Completed true * Provider:?Pepe Stephenson MD Date:? 025 Generated for Darryl ng/Hannah/Javier on:?11/21/2024 02:08 PM EDT History and Physical Notes * HPI (History of Present Illness) Category Sub-Category Detail Notes Category Not es incontinence I saw Vickie in the office today for evaluation of his previous history of dysphagia with associated weight loss and subsequent placement of a G-tube. He is accompanied by his [employer], Good, who helped with interpreting. I last saw Vickie in July of 2023 when he was hospitalized with progressive dysphagia, malnutrition, and weight loss. A G-tube was placed endoscopically at that time. Subsequent to that he has actually been doing very well and has gained about 40 pounds. He is only using the G-tube for 3 cans of Ensure daily and is otherwise eating and drinking liquids orally without any difficulty. He denies any choking, dysphagia, nor any recent history of pneumonias. He did have some DVTs and pulmonary emboli last Fall at [facility] and has been on Eliquis for that since early June of 2024. He is scheduled to see Dr. Wray for follow up next month. He is also scheduled for a barium swallow next month with the speech and swallowing department through [facility]. Vickie reports that he generally feels well and denies any abdominal pains, jaundice, nausea, vomiting, significant heartburn, nor early satiety. He reports his bowel movements have been fairly regular and without any signs of bleeding. He is interested in having the G-tube removed. Examination Category Sub-Category Detail Notes Category Not es General Examination GENERAL APPEARANCE: pleasant , thin, [...]
--- OUTSIDE RECORDS SUMMARY | 2024-11-21 14:08 | XMS_ITS | Data Portability ---
Author Organization [facility] [employer] [facility], Main Office Address [address] [place] [address] Care Team Providers Care Typesetters Printer Name Role Phone BRENDAN HOLLINGSWORTH - 2ND [...] and Address Organization Details Recorded Time Asthenia 61356875 Active 2022 MAURO DUFFY NP [address], [address], [place], [address], [facility] [employer] 3 12:08:07 Moderate protein-calori e malnutrition (weight for age 60-74 percent of standard) 940129519 Active 2022 MAURO DUFFY NP [address] [facility], [address], [place], [address], [facility] [employer] 3 12:08:23 Pneumonia 016172761 Active 2022 MAURO DUFFY NP [address], [address], [place], [address], [facility] [employer] 3 12:08:31 Pleural effusion 45123811 Active 2022 MAURO DUFFY NP [address], [address], [place], [address], [facility] [employer] 3 12:08:59 Hypertensive disorder 10586361 Active 2022 MAURO DUFFY NP [address], [address], [place], [address], [facility] [employer] [facility] 3 12:09:07 Human immunodeficien cy virus infection 97608796 Active 2022 MAURO DUFFY NP [address], [address], [place], [address], [facility] [employer] [facility] 3 12:09:12 Viral hepatitis C 44939761 Active 2022 MAURO DUFFY NP [address], [address], [place], [address], [facility] 3 12:09:28 Mixed anxiety and depressive disorder 285468170 Active 2022 MAURO DUFFY NP [address], [address], [place], [address], [facility] 3 12:09:40 Asthma 826268046 Active 2022 MAURO DUFFY NP [address], [place], [address], [facility] 3 12:09:56 Acute dermatitis 96762866 Active 2022 MAURO DUFFY NP [address], [address], [place], [address], [facility] 3 12:14:27 Migraine 98924912 Active 2022 MAURO DUFFY NP [address], [address], [place], [address], [facility] 3 12:25:08 Non-traumatic rhabdomyolysis 328475295 Active 2022 Leilani Romeo MD [address], [address], [place], [address], [facility] 3 10:08:19 Moderate persistent asthma 971649264 Active 2022 Leilani Romeo MD [address], [address], [place], [address], [facility] 3 10:18:10 Insomnia 623803351 Active 2022 Leilani Romeo MD [address], [address], [place], [address], [facility] 3 10:19:09 Polysubstance abuse 636891814 Active 2022 Leilani Romeo MD [address], [address], [place], [address], [facility] 3 10:19:11 Adult failure to thrive syndrome 193885842 Active 2022 Maryjane Glover NP [address], [address], [place], [address], [facility] 3 13:27:15 Anemia 055025207 Active 2022 Maryjane Glover NP [address], [address], [place], [address], [facility] 3 13:30:43 Dysphagia 56901141 Active 2022 Leilani Romeo MD [address], [address], [place], [address], [facility] 3 20:51:38 Gastroesophage al reflux disease without esophagitis 565688532 Active 2022 Leilani Romeo MD [address], [address], [place], [address], [facility] 3 20:54:24 Chronic pain 40059316 Active 2022 Leilani Romeo MD [address], [place], [address], [facility] 3 20:55:56 Problem Notes None recorded. Medical Equipment None Reported. Allergies Allergen ID Allergen Name Allergen Category Reaction Reaction Severity Criticality Documentation Date Start Date Code Code System Note Provider Name and Address Organization Details Recorded Time 65078 codeine medicatio n Not available Not available Not available 01/17/2023 2670 RxNorm rash Not Available Not Available Not Available 85975 Levaquin medicatio n Not available Not available Not available 01/17/2023 80030 2 RxNorm rash Not Available Not Available Not Available 73861 Reglan medicatio n Not available Not available Not available 01/17/2023 9230 RxNorm rash Not Available Not Available Not Available 32412 ibuprofen medicatio n Not available Not available Not available 01/17/2023 5640 RxNorm reflu x Not Available Not Available Not Available 33602 Product containin g penicilli n (product) medicatio n Not available Not available Not available 01/17/2023 98160 8001 SNOMED rash Not Available Not Available Not Available 14833 Ultram medicatio n Not available Not available Not available 01/17/2023 32398 6 RxNorm N/V Not Available Not Available Not Available 09465 acetamino phen medicatio n other Not available unabletoasse ss 08/03/2023 161 RxNorm unkno wn Not Available Not Available Not Available 73922 [employer] environme nt,medica tion other Not available unabletoasse 08/03/2023 35282 6 RxNorm unkno wn Not Available Not [...] Details Last Updated DateTime 3 167.64 cm 60109.5 4 g 17.4 kg/m2 86 /min 18 /min 97.6 [degF] 91 % 91 % 115 mm[Hg] 68 mm[Hg] Maryjane Glover NP [address] [facility], [address], [place], [address], [place] [facility] [employer] 3 11:08:33 Date Recorded Body height Body weight Heart rate Respiratory rate Body temperature Oxygen saturation Oxygen saturation in Arterial blood by Pulse oximetry Systolic blood pressure Diastolic blood pressure Provider Name and Address Organization Details Last Updated DateTime 3 167.64 cm 73873.5 4 g 72 /min 18 /min 97.1 [degF] 96 % 96 % 115 mm[Hg] 68 mm[Hg] Maryjane Glover NP [address] [facility] [address] [facility], [address], [place], [address], [facility] 3 13:10:32 Date Recorded Body height Body mass index (BMI) Body weight Heart rate Systolic blood pressure Diastolic blood pressure Provider Name and Address Organization Details Last Updated DateTime 3 167.64 cm 17.3 kg/m2 78755.3 8 g 74 /min 133 mm[Hg] 85 mm[Hg] Dilia Gonzalez [address], [address], [place], [address], [facility] 3 13:13:45 Date Recorded Body height Body weight Heart rate Respiratory rate Body temperature Oxygen saturation Oxygen saturation in Arterial blood by Pulse oximetry Systolic blood pressure Diastolic blood pressure Provider Name and Address Organization Details Last Updated DateTime 4 167.64 cm 30248.5 4 g 88 /min 18 /min 97.6 [degF] 96 % 96 % 133 mm[Hg] 85 mm[Hg] Maryjane Glover NP [address] [facility] [address] [facility] [address], [address], [place], [address], [facility] 4 19:10:48 Date Recorded Body height Heart rate Respiratory rate Body temperature Oxygen saturation Oxygen saturation in Arterial blood by Pulse oximetry Systolic blood pressure Diastolic blood pressure Provider Name and Address Organization Details Last Updated DateTime 4 167.64 cm 84 /min 18 /min 97.5 [degF] 98 % 98 % 133 mm[Hg] 85 mm[Hg] MAURO DUFFY NP [address] [facility] [address] [facility], [address], [place], [address], [facility] 4 08:57:54 Social History Question Answer Notes LastModified by Organizat ion Details LastModified Time Tobacco Smoking Status Never Smoker MAURO DUFFY NP [address], [address], [place], [address], [facility] 01/17/2023 11:35:26 Do You Have An Advance Directive? Yes Information not available 01/17/2023 What Is Your Level Of Alcohol Consumption? None [email or web address] Information not available 01/17/2023 What Is Your Code Status? Full Code [email or web address] Information not available 01/17/2023 Where Do You Live? Apartment With Elevator, Family Near By, Helpful [email or web address] Information not available 01/17/2023 What Was The Date Of Your Most Recent Tobacco Screening? 08/03/2023 Information not available 08/03/2023 Do You Use Any Illicit Or Recreational Drugs? No Noted Past Use Cocaine Information not available 08/03/2023 Has Tobacco Cessation Counseling Been Provided? No [email or web address] Information not available 01/17/2023 Do You Or Have You Ever Used Any Other Forms Of Tobacco Or Nicotine? No [email or web address] Information not available 01/17/2023 Sex: Unknown Functional Status None recorded. Mental Status None recorded. Family History Relationship Description Onset Age of this Age Resolved Age Notes LastModified by Organization Details LastModified Time Mother Malignant tumor of lung [email or web address] Not available 2022 11:34:21 Medical History No medical history recorded. Immunizations Vaccine Type Date Status Note Provider Nam e and Address Organization Details Recorded Time COVID-19, mRNA, LNP-S, bivalent, PF, 50 mcg/0.5 mL or 25mcg/0.25 mL dose [facility]44:56 COVID-19, mRNA, LNP-S, bivalent, PF, 50 mcg/0.5 mL or 25mcg/0.25 mL dose 3 [facility] 13:45:39 Pneumococcal conjugate PCV20, polysaccharide [id number] conjugate, adjuvant, PF 3 completed Asia juarez [facility] 09/11/2023 13:46:16 Influenza, adjuvanted, quadrivalent, PF 3 completed Asia juarez [facility] 09/11/2023 13:46:36 Influenza, adjuvanted, quadrivalent, PF 2 completed Asia juarez [facility] 10/24/2023 13:13:32 Past Encounters Encounter ID Performer Location Encounter Start Date Encounter Closed Date Diagnosis/Indication Diagnosis SNOMED-CT Code Diagnosis ICD10 Code Diagnosis Note [id number] MAURO DUFFY NP [address] [address] 01/17/2023 11:16:19 01/22/2023 12:34:21 Pleural effusion 29656179 J90 and empyema, resp. failures/p L chest tube, intubation Clinically improved.M onitor VS, sats, LS, CP status closely for decompensa tion Pneumonia 753970197 J18. 9 Treated with IV zosyn in hosp.Clini lesly improved.A s above, monitlr VS, sats, LS, CP status closely Asthenia 06672679 R53.1 PT OT eval and tx. Moderate protein-calorie malnutrition (weight for age 60-74 percent of standard) 876272644 E44.0 Started supplement s in hosp.Refer to school bus attendant here.Seen by in hosp, diet changed to chopped/ad vanced consistenc yOn reg. diet here, doing well. Refer to rehab to try to get bedside FEES testing Hypertensive disorder 38 998411 I10 On norvasc 5 mg dailyPropr anolol ER held in hosp., instructed to resume 03/09, unclear as to why held or if used for something else?Monio r VS, adjust meds prn Human immunodeficiency virus infection 93061867 B20 Continue biktarvy Mixed anxi ety and depressive disorder 494992856 F41.8 Continue home meds:clona zepam 1 mg daily? risperdal 2 mg HSremeron 60 mg HSMonitor mood, behaviors for changePsyc h eval prn Asthma 598881482 J45.90 9 Continue flovent bidMonitor resp. status for change Acute dermatitis 9744368 6 L30.9 bilat. groin, fungalstar t nystatin cream or powder bid x 14 days or until clearmonit or Migraine 37627260 G43.90 9 Continue home meds:Celeb monica 200 mg bidgabapen tin 600 mg tidibuprof en 800 mg q8 hr prnultram 50 daily prn? clonazepam 1 mg daily? risperdal 2 mg HS? propranolo l Er 120 mg daily - held in hosp - cont. to hold here, resume date of 03/09 [id number] Kenia Michaels MD [address] [address] 01/19/2023 07:22:18 01/22/2023 15:16:30 Pneumonia 132063721 J15.8 antibiotic s completeds /p empyema, respirator y failure, intubation will monitor Asthenia 24775086 R53.1 PT/OTwill monitor Human immunodeficiency virus infection 25350162 B20 Biktarvy 50-200-25 dailyfu I.D. Essential hypertension 34966787 I10 amlodipine 5 mg dailywill monitor Mixed anxi ety and depressive disorder 066898972 F41.8 gabapentin 600 mg tidmirtaza pine 60 mg at hsrisperid one 2 mg at hsclonazep am 1 mg dailywill monitor Gastroesop hageal reflux disease without esophagitis 396848928 K21.9 pantoprazo le 40 mg dailywill monitor Chronic pain 26753218 G8 9.29 gabapentin 600 mg tidhospita l discharge notes include:ce lecoxib 200 m bid, ibuprofen 800 mg q8h prn, tramadol 50 mg daily prnwill monitor and consider if needed [id number] Panchito Morales NP [facility] [address] [place] [address] 06/30/2023 08:20:37 07/03/2023 11:44:52 Human immunodeficiency virus infection 30467521 B20 06/30/23mo nitorID consult as indicated- biktarvy (bictegrav ir, emtricitab ine & tenofovir alafenamid e) 50-200-25m g QD Hypertensive disorder 38 187669 I10 06/30/23mo nitorcards FU PRNavoid beta barb with HX of cocaine abuse-amlo dipine 5mg QD Mixed anxi ety and depressive disorder 404888462 F41.8 06/30/23mo nitorpsych consult PRN-risper idone 3mg QHS Viral hepatitis C 673995 07 B19.20 10/21/23mo nitor [id number] Leilani Levheim, MD [facility] on [address] [place] [address] 07/02/2023 17:00:01 07/12/2023 14:37:46 Human immunodeficiency virus infection 90996236 B20 Non-detect able on last checkConti nue biktarvy (bictegrav ir, emtricitab ine & tenofovir alafenamid e) 50-200-25m g QDF/U with ID as planned. Hypertensive disorder 38 973234 I10 BP good since here.Sam nue amlodipine 5 mg qdMonitor BP and labs. Mixed anxi ety and depressive disorder 861020866 F41.8 Mood stable.Con tinue risperidon e 3 mg qhs, mirtazapin e 30 mg qhs, and clonazepam 1 mg qd.Monitor mood.Psych consult prn. Viral hepatitis C 221815 07 B18.2 Unclear hx.LFTs WNL.F/U as outpt. Acute chest pain 6409581 01 R07.89 Per cardio not ACS.Monito r sxs.F/U with cardio prn. Non-trauma tic rhabdomyolysis 947053505 M62.82 CPK trended down inpt.No need to monitor further. Moderate p ersistent asthma 929851759 J45.40 No SOB or hypoxia, but with junky cough as above.Cont inue Advair 230/21 two puffs BID, Flovent 2 puffs BID, and albuterol/ budesonide 2 puffs q 6 hrs prn.Monito r resp status. Polysubstance abuse 4452 59734 F19.10 Most often cocaine, but sometimes other things.Con tinue SUDs counseling while here and encourage abstinence and outpt f/u. Cough 64509482 R05.8 Sounds junky, but pt says it feels like tickle in throat. Maybe post nasal drip.Lungs clear, but still could be early PNA.Will start Robitussin DM 10 ml q 4 hrs prn and get CXR tomorrow.M onitor resp status. Insomnia 775482152 G47.0 9 Will try melatonin 5 mg qhs.Monito r sleep patterns. [id number] MIGUEL BROWN [facility] on [address] [place] [address] 07/05/2023 08:16:20 07/12/2023 16:01:31 Mixed anxiety and depressive disorder 234829687 F41.8 07/05: his mood is stablecont inue:clona zepam 1 mg dailyrispe ridone 3 mg daily at bedtime.Mi rtazapine 30 mg at bedtime daily.tu tonin 5 mg at bedtime daily Cough 74968998 R05.8 07/05: non productive upper airway congested coughThere is no SOB. LS are clearCXR completed; no active pulmonary infiltrate s or pleural effusions seen.Erna ussin DM 10 ml q 4 hrs prn- will scheduled for a few days, does not look like he requested prn.Monito r resp status. Polysubstance abuse 4452 45352 F19.10 Most often cocaine, but sometimes other things.Con tinue SUDs counseling while here and encourage abstinence and outpt f/u. [id number] MIGUEL BROWN [facility] on [address] [place] [address] 07/06/2023 09:35:29 07/12/2023 16:16:45 Mixed anxiety and depressive disorder 450186784 F41.8 continue:c lonazepam 1 mg dailyrispe ridone 3 mg daily at bedtime.Mi rtazapine 30 mg at bedtime daily.tu tonin 5 mg at bedtime dailyfollo w up with outpatient PCP. Cough 61013617 R05.8 CXR on 07/03/23 negative for any acute process.Ro bitussin DM 10 ml q 4 hrs prnfollow up with outpatient PCP. Acute dermatitis 8398203 6 L30.9 continueny statin cream BID as needed until clearedfol low up with outpatient PCP. Asthma 997854401 J45.90 9 Advair 230/21 two puffs BID,Floven t 2 puffs BID, andalbuter ol/budeson kentrell 2 puffs q 6 hrs prn.follow up with outpatient PCP. Human immunodeficiency virus infection 51406415 B20 Continue biktarvy (bictegrav ir, emtricitab ine & tenofovir alafenamid e) 50-200-25m g QD Hypertensive disorder 38 792576 I10 Continue amlodipine 5 mg qdfollow up outpatient Insomnia 190536754 G47.0 9 melatonin 5 mg at bedtime Migraine 45552954 G43.90 9 Continue home meds: Celebrex 200 mg bid gabapentin 600 mg tid ibuprofen 800 mg q8 hr prn ultram 50 daily prn clonazepam 1 mg daily risperdal 3 mg HS follow up with PCP Viral hepatitis C 105923 B18.2 follow labs outpatient follow up with outpatient pcp. [id number] Maryjane Glover NP [facility] [address] [place] [address] 08/03/2023 12:58:35 08/08/2023 10:07:33 Human immunodeficiency virus infection 49580855 B20 ID consult prnbiktarv y (bictegrav ir, emtricitab ine & tenofovir alafenamid e) 50-200-25m g QD Asthenia 54122358 R53.1 PT/OT treat and evalwill monitor Essential hypertension 88225768 I10 amlodipine 5 mg dailywill monitor Mixed anxi ety and depressive disorder 167756578 F41.8 gabapentin 600 mg tidmirtaza pine 60 mg at hsrisperid one 3 mg at hsclonazep am 1 mg dailypsych prnwill monitor Gastroesop hageal reflux disease without esophagitis 127787911 K21.9 With recent workup in hosp and PEG placed.use G tube for feedings/m edswill monitor Chronic pain 78234340 G8 9.29 gabapentin 600 mg tidtramado l 50 mg prn dailymulti ple allergies notedwill monitor and consider if needed Polysubstance abuse 4452 59411 F19.10 Most often cocaine per hx with overdoses notedConti nue counseling while here and encourage abstinence and outpt f/u. Asthma 586929620 J45.90 9 advair 2 puff bidalbuter ol 2 puffs q 6 hours prn wheezingMo nitor resp. status for change Viral hepatitis C 841445 B18.2 fu with labscurren tly stable liver enzymesmon itor Moderate protein-calorie malnutrition (weight for age 60-74 percent of standard) 301703472 E44.0 now on PEG tube with feedings at 60cc/hrRef er to school bus attendant here.Seen by in hosp, unclear why he has dysphagia and difficulty eating with workup including EGD at [facility] eval and treat here to see if he can take po intakemoni tor Anemia 654378373 D64.9 ferrous gluconate 324 dailymonit or cbc weekly Adult fail ure to thrive syndrome 960324973 R62.7 g tube feedings and meds through g tube at 60cc/hrfai lure to thrive [facility] treat, consider reintroduc ing foods when ableweight s weeklymoni tor Insomnia 962176976 G47.0 9 benedryl 25 mg qhsmonitor [id number] Leilani Romeo MD [address] [address] 08/06/2023 16:28:34 08/08/2023 11:16:44 Adult failure to thrive syndrome 273800622 R62.7 With marked wt. loss over past few months.Mehrdad barr Jevity 1.0 or 1.2 tanya/ml at 60 ml/hr.Stil l unable to swallow, unknown reason.Mehrdad barr HYBRID TECHNOLOGIST interventi ons to hopefully enable him to eat again.Cait tor wts and labs. Moderate protein-calorie malnutrition (weight for age 60-74 percent of standard) 313601320 E44.0 As above. Human immunodeficiency virus infection 92126818 B20 Last labs show zero viral load.Sam nue Biktarvy (bictegrav ir, emtricitab ine & tenofovir alafenamid e) 50-200-25m g QDF/U with ID as planned. Asthenia 93538044 R53.1 Very deconditio armen.Needs PT/OT for strengthen ing, balance, gait training, safety and function.C ontinue fall precaution s.Monitor for safety. Essential hypertension 70289425 I10 BP running low since here, should improve as nutritiona l status improves.C ontinue amlodipine 5 mg qdMonitor BP and labs. Gastroesop hageal reflux disease without esophagitis 125689726 K21.9 On no meds.I wonder if starting a PPI may help with throat pain?Monit or Chronic pain 24860104 G8 9.29 No c/o tonight.Co ntinue gabapentin 600 mg TID and tramadol 50 mg qd prnMonitor sxs. Asthma 200320846 J45.30 Asthma meds transcribe d incorrectl y on admission here.Was not put on Advair, but rather only albuterol/ budesonide prn.Will restart Advair 230/21 mcg two puffs BIDMonitor resp. status Anemia 809330474 D64.89 Not currently anemic.Con tinue ferrous gluconate 324 mg qdMonitor labs Mixed anxi ety and depressive disorder 103980679 F41.8 Mood stable.Con tinue risperidon e 3 mg qhs, mirtazapin e 60 mg qhs, and clonazepam 1 mg qd.Monitor mood.Psych consult prn. Viral hepatitis C 536172 07 B18.2 Unclear hx.LFTs WNL.F/U as outpt. Polysubstance abuse 4452 43329 F19.10 Most often cocaine, but sometimes other things.Con momo counseling and encourage abstinence and outpt f/u. Dysphagia 22757861 R13.1 9 Unknown etiology.C ontinue G-tube feeding as above.Cons ider ENT consult. [id number] Maryjane Glover, LADAN [address] [address] 08/16/2023 12:26:03 08/22/2023 11:29:11 Adult failure to thrive syndrome 045431846 R62.7 With marked wt. loss over past few months.Con tinueJevit y 1.5 tanya/ml at 60 ml/hr. school bus attendant following and will adjust as neededStil l unable to swallow, unknown reason.Con momo HYBRID TECHNOLOGIST interventi ons to hopefully enable him to eat again.Cait tor wts and labs. Dysphagia 22769279 R13.1 9 Unknown etiology.C ontinue G-tube feeding as above.Cons ider ENT consult. Moderate protein-calorie malnutrition (weight for age 60-74 percent of standard) 044547574 E44.0 As above. Human immunodeficiency virus infection 42458444 B20 Last labs show zero viral load.Sam nueBiktarv y (bictegrav ir, emtricitab ine & tenofovir alafenamid e) 50-200-25m g QDF/U with ID as planned. Asthenia 45028144 R53.1 Very deconditio armen.Needs PT/OT for strengthen ing, balance, gait training, safety and function.C ontinue fall precaution s.Monitor for safety. Essential hypertension 03226685 I10 BP running low since here, should improve as nutritiona l status improves.a mlodipine 5 mg qdMonitor BP and labs. Gastroesop hageal reflux disease without esophagitis 480436104 K21.9 no meds.Monit or Chronic pain 17774925 G8 9.29 has mild headache todayConti nuegabapen tin 600 mg TIDtramado l 50 mg qd prnMonitor sxs. Asthma 560323794 J45.30 Asthma meds transcribe d incorrectl y on admission here.albut maddi/budes onide prn.Advair 230/21 mcg two puffs BIDMonitor resp. status Anemia 248592090 D64.89 Not currently anemic.juan carlos scales order cbc and bmp weekly g0zozmvre gluconate 324 mg qdMonitor labs Mixed anxi ety and depressive disorder 228320260 F41.8 Mood stable.ris peridone 3 mg qhsmirtaza pine 60 mg qhs,clonaz epam 1 mg qd.Monitor mood.Psych consult prn. Viral hepatitis C 990010 07 B18.2 Unclear hx.LFTs WNL.F/U as outpt. Polysubstance abuse 4452 05457 F19.10 Most often cocaine, but sometimes other things.Mehrdad barr counseling and encourage abstinence and outpt f/u. [id number] Maryjane Glover NP [address] [address] 08/22/2023 11:06:38 08/28/2023 14:23:57 Adult failure to thrive syndrome 337340947 R62.7 With marked wt. loss over past few months.Con tinueJevit y 1.2 tanya/ml at 67ml/hr. school bus attendant following and will adjust as neededStil l unable to swallow, unknown reason.Mehrdad barr HYBRID TECHNOLOGIST interventi ons to hopefully enable him to eat again.Cait tor wts and labs.08/22 school bus attendant to assess if bolus feedings can be attempted for homefamily /pt needs g tube care/teach ing for ? dc homemonito r Asthenia 75688284 R53.1 Very deconditio armen, improving every week with therapyNee ds PT/OT for strengthen ing, balance, gait training, safety and function.C ontinue fall precaution s.Monitor for safety. Dysphagia 54652538 R13.1 9 Unknown etiology.C ontinue G-tube feeding as above.Cons ider ENT consult. Anemia 069621614 D64.89 Not currently anemic.juan carlos l order cbc and bmp weekly q9otgfhlh gluconate 324 mg qdMonitor labs Moderate protein-calorie malnutrition (weight for age 60-74 percent of standard) 195559768 E44.0 As above. Human immunodeficiency virus infection 33617612 B20 ContinueBi ktarvy (bictegrav ir, emtricitab ine & tenofovir alafenamid e) 50-200-25m g QDF/U with ID as planned. Essential hypertension 73000037 I10 BP now improving as nutritiona l status improves.1 10s-130s /60scontam lodipine 5 mg qdMonitor BP and labs. Gastroesop hageal reflux disease without esophagitis 881573123 K21.9 no meds.Monit or Chronic pain 47700142 G8 9.29 headache resolvedCo ntinuegaba pentin 600 mg TID, no pain todaytrama dol 50 mg qd prnMonitor sxs. Asthma 769535252 J45.30 Asthma meds transcribe d incorrectl y on admission here.albut maddi/budes onide prn.Advair 230/21 mcg two puffs BIDMonitor resp. status Mixed anxi ety and depressive disorder 378703861 F41.8 Mood stable and ding wellrisper idone 3 mg qhsmirtaza pine 60 mg qhs,clonaz epam 1 mg qd.Monitor mood.Psych consult prn. [id number] Maryjane Glover NP [address] [address] 08/29/2023 08:14:48 08/30/2023 19:42:34 Adult failure to thrive syndrome 189169291 R62.7 With marked wt. loss over past few months.Con tinueJevit y 1.2 tanya/ml at 67ml/hr. school bus attendant following and will adjust as neededStil l unable to swallow, unknown reason.per speech eval: no eating or drinkingMo nitor wts and labs.08/22 school bus attendant to assess if bolus feedings can be attempted for homefamily /pt needs g tube care/teach ing for ? dc homemonito r1/ awaiting school bus attendant to calculate gtube feedings and start Asthenia 40886581 R53.1 Very deconditio armen, improving every week with therapyNee ds PT/OT for strengthen ing, balance, gait training, safety and function.C ontinue fall precaution s.Monitor for safety. Dysphagia 98763374 R13.1 9 Unknown etiology.C ontinue G-tube feeding as above.Cons ider ENT consult. Anemia 546365494 D64.89 Not currently anemic.juan carlos l order cbc and bmp prn, labs stableferr ous gluconate 324 mg qdMonitor labs Moderate protein-calorie malnutrition (weight for age 60-74 percent of standard) 121582294 E44.0 As above. Human immunodeficiency virus infection 60911342 B20 ContinueBi ktarvy (bictegrav ir, emtricitab ine & tenofovir alafenamid e) 50-200-25m g QDF/U with ID as planned. Essential hypertension 77330023 I10 BP now improving as nutritiona l status improves.1 conta mlodipine 5 mg qdMonitor BP and labs. Gastroesop hageal reflux disease without esophagitis 037327404 K21.9 no meds.Monit or Chronic pain 96621115 G8 9.29 headache resolvedCo ntinuegaba pentin 600 mg TID, no pain todaytrama dol 50 mg qd prnMonitor sxs. Asthma 548969849 J45.30 Asthma meds transcribe d incorrectl y on admission here.albut maddi/budes onide prn.Advair 230/21 mcg two puffs BIDMonitor resp. status Mixed anxi ety and depressive disorder 592832953 F41.8 Mood stable and ding wellrisper idone 3 mg qhsmirtaza pine 60 mg qhs,clonaz epam 1 mg qd.Monitor mood.Psych consult prn. Neck pain 11214321 M54.2 incidental neck pain, states slept on it wrongnsg giving tyl, tramadol and gabapentin reposition neckmonito r for relief [id number] Dilia SchwarzGino Hutchinson [address] [place] [address] 09/07/2023 05:15:43 09/13/2023 10:39:11 Adult failure to thrive syndrome 983419468 R62.7 With marked wt. loss over past few months.Con tinueJevit y 1.2 tanya/ml at 67ml/hr. school bus attendant following and will adjust as neededStil l unable to swallow, unknown reason.Mehrdad barr HYBRID TECHNOLOGIST interventi ons to hopefully enable him to eat again.Cait tor wts and labs.recei deborah education on gt feeds, SW working on VNA set up for [facility] GT site daily with NS and dry. apply 2x2 to sitemonito r Asthenia 25510548 R53.1 Very deconditio armen, improving every week with therapyNee ds PT/OT for strengthen ing, balance, gait training, safety and function.C ontinue fall precaution s.Monitor for safety. Dysphagia 87838076 R13.1 9 Unknown etiology.C ontinue G-tube feeding as above.Cons ider ENT consult. Anemia 074672300 D64.89 Not currently anemic.juan carlos l order cbc and bmp weekly f6ktmyxbp gluconate 324 mg qdMonitor labs Moderate protein-calorie malnutrition (weight for age 60-74 percent of standard) 429328261 E44.0 As above. Human immunodeficiency virus infection 06275837 B20 ContinueBi ktarvy (bictegrav ir, emtricitab ine & tenofovir alafenamid e) 50-200-25m g QDF/U with ID as planned. Essential hypertension 07694365 I10 BP now improving as nutritiona l status improves.1 10s-130s /60scontam lodipine 5 mg qdMonitor BP and labs. Gastroesop hageal reflux disease without esophagitis 235253233 K21.9 no meds.Monit or Chronic pain 65555909 G8 9.29 headache resolvedCo ntinuegaba pentin 600 mg TID, no pain todaytrama dol 50 mg qd prnMonitor sxs. Asthma 925165838 J45.30 Asthma meds transcribe d incorrectl y on admission here.albut maddi/budes onide prn.Advair 230/21 mcg two puffs BIDMonitor resp. status Mixed anxi ety and depressive disorder 136021403 F41.8 Mood stable and ding wellrisper idone 3 mg qhsmirtaza pine 60 mg qhs,clonaz epam 1 mg qd.Monitor mood.Psych consult prn. [id number] Maryjane Glover, [facility] [address] [place] [address] 09/12/2023 18:08:08 09/14/2023 11:17:17 Adult failure to thrive syndrome 547151961 R62.7 With marked wt. loss over past [...] dry. apply 2x2 to sitemonito r Asthenia 54229765 R53.1 Very deconditio armen, improving every week with therapyNee ds PT/OT for strengthen ing, balance, gait training, safety and function.C ontinue fall precaution s.Monitor for safety. Dysphagia 93609692 R13.1 9 Unknown etiology.C ontinue G-tube bolus feeding as above.FEES test on Sundayne s cxr to rule out pna from foods and drinks in room despite recommenda tionConsid er ENT consult. Moderate protein-calorie malnutrition (weight for age 60-74 percent of standard) 012349050 E44.0 As above. Human immunodeficiency virus infection 15180266 B20 ContinueBi ktarvy (bictegrav ir, emtricitab ine & tenofovir alafenamid e) 50-200-25m g QDF/U with ID as planned. Essential hypertension 11209875 I10 BP now improving as nutritiona l status improves.1 10s-130s /60scontam lodipine 5 mg qdMonitor BP and labs. Asthma 911127459 J45.30 no wheezing noted on exam, stablealbu terol/bude sonide prn.Advair 230/21 mcg two puffs BIDMonitor resp. status Mixed anxi ety and depressive disorder 871492803 F41.8 Mood stable and ding wellrisper idone 3 mg qhsmirtaza pine 60 mg qhs,clonaz epam 1 mg qd.Monitor mood.Psych consult prn. 534189 MAURO DUFFY NP [facility] [facility] [place] [address] 09/18/2023 08:57:08 09/25/2023 10:49:09 Adult failure to thrive syndrome 278819577 R62.7 With marked wt. loss over past few months due to difficulty swallowing .G tube placed 07/30/23 at [facility] [place] [place].Contin ue osmolite 1.2 tanya/ml 410 cc qid bolus tube feedings upon d/c home.Seen by HYBRID TECHNOLOGIST - now on puree diet with thin liquids - may continue at homeContin ue to monitor weights and intake at home Asthenia 25737215 R53.1 Improved, meeting rehab goals for d/c home today with support of services.C ontinue fall precaution s.Monitor for safety as outpt. Dysphagia 72788336 R13.1 9 Unknown etiology.S ee above.[facility] w on pureed diet, thin liquidsMon itor intake, s/s aspiration as outpt. Moderate protein-calorie malnutrition (weight for age 60-74 percent of standard) 056323202 E44.0 As above. Human immunodeficiency virus infection 90593369 B20 ContinueBi ktarvy (bictegrav ir, emtricitab ine & tenofovir alafenamid e) 50-200-25m g QDF/U with ID as planned. Essential hypertension 15348343 I10 continue amlodipine 5 mg qdMonitor BP as outpt. Asthma 861939892 J45.30 no wheezing noted on exam, stablecont inue Advair 230/21 mcg two puffs BID and albuterol/ budesonide prn.Monito r resp. status as outpt. Mixed anxi ety and depressive disorder 026818687 F41.8 Mood stable and doing wellContin ue home medsrisper idone 3 mg qhsmirtaza pine 60 mg qhsclonaze david 1 mg qdMonitor mood, behaviors as outpt. Chronic pain 80393552 G8 9.29 continue gabapentin 600 mg tid, ultram 50 mg qd prnmonitor asoutpt. Anemia 637572609 D64.89 remains on daily FeMonitor CBC,s/s active bleeding Health Concerns Section Related Observation LastModified by Organization Detai ls LastModified Time None Recorded Concern Status LastModified by Organization Details LastModified Time None Recorded Advance Directives Directive Y: Payers Encounter Date Sequence Insurance Name Policy Number Policy Perry Covered Member ID Perry Member ID Guarantor Name 08/22/2023 1 [facility] [facility] - DOS ON OR AFTER 2022 - MEDICARE ADVANTAGE [place] (MEDICARE REPLACEMENT/ADV ANTAGE - PPO) [facility] Fall [id number] [facility] 08/29/2023 1 [employer] C[facility] - DOS ON OR AFTER 2022 - [place]IC[place]AC[place]/ADV ANTAGE - PPO) [facility] [id number] [facility] 09/07/2023 1 [employer] C[employer] - DOS ON OR AFTER 2022 - [place]/ADV ANTAGE - PPO) [facility] Fall [id number] [facility] 09/12/2023 1 [employer] C[employer] - DOS ON OR AFTER 2022 - [place]IC[place] ([place]/ADV ANTAGE - PPO) [facility] Fall [id number] [facility] 09/18/2023 1 [employer] CARE [employer]IANCE - DOS ON OR AFTER 2022 - [place]IC[place] (MEDICARE REPL[place]EMENT/ADV ANTAGE - PPO) [facility] Fall [id number] [facility] Notes Date Note Type Note Provider [...] other concerns. Note: He was admitted to [facility] [place] [place] [facility] for similar concerns earlier this month [...] signed 01/17/23 Maryjane Glover NP [address], [address], [place], [address], [facility] [employer] 08/22/2023 11:24:08 08/29/2023 text/html Patient seen for an 30 routine rounding visit. Past medical history significant for HIV, history of hep C, depression, asthma, history lung abscess 2020, fall, several overdoses noted in hx. dysphagia seen for difficulty swallowing ultimately diagnosed with failure to thrive and PEG tube placed. Benjamin was admitted to [facility] [place] [place] [facility] for difficulty swallowing and underwent EGD [...] from hospital to rehab. While here at [facility]: Pt is 107.6 lbs and this [...] disconnect his feedings without difficulty here. Awaiting school bus attendant to calculate bolus feedings and start them [...] signed 01/17/23 Maryjane Glover NP [address], [address], [place], [address], [facility] [employer] 08/29/2023 13:39:07 09/07/2023 text/html Patient seen for [...] other concerns. Note: He was admitted to [facility] [place] [place] [facility] for similar concerns earlier this month [...] code signed 01/17/23 Dilia Michelle lloyd [address], [address], [place], [address], [employer] 09/07/2023 13:21:25 09/12/2023 text/html Patient seen for [...] signed 01/17/23 Maryjane Glover NP [address], [address], [place], [address], [employer] 09/12/2023 19:33:00 09/18/2023 text/html Benjamin is seen t heidy for discharge. He is going home today with support of services. He is a 58 yo man admitted to [facility] 08/02/23 from [facility] [place] [place] for continued care and rehab after a hospitalization related to malnutrition and FTT.He presented to [facility] [place] [place] 07/27 reporting throat pain and the inability to swallow.Swallowing issues problematic prior to this presentation, had EGD with Dr. Dodson 07/17, results c/w mild candidiasis normal stomach and duodenum. He was also seen by HYBRID TECHNOLOGIST, diet changed to NND1 and nectar thick liquid. Due to ongoing swallowing issues at home, he returned to [facility] [place] [place] [facility].A g-tube was placed on 07/30, cause of dysphagia unclear. Kept NPO, and sent here for rehab. While here, Benjamin has done well.Worked with PT/OT, meeting goals for d/c home.Also worked with HYBRID TECHNOLOGIST and school bus attendant - now tolerating puree diet with thin [...] possibly inadvertently). MAURO DUFFY NP [address], [address], [place], [address], [facility] 09/18/2023 09:47:21
--- OUTSIDE RECORDS SUMMARY | 2024-11-21 14:08 | XMS_ITS ---
Demographics Address [address] [place] [address] Preferred Language es Marital Status Unknown Jehovah'S Witness Affiliation Unknown Race White Ethnic Group Not or Lati no Author Organization [facility] Address [address] [place] [address] Care Team Providers Care Accounting Office Manager Name Role Phone Terese Rivera Primary Care Provider Pepe Dangelo [phone] Encounters Encounter Location Date Provider Diagnosis [facility] [address] [place] [address] 10/26/2024 Pepe Stephenson Plan Of Treatment Next Appt Details Provider Name:Pepe Stephenson , 02/12/2025 11:00:00 AM, [address], [address], [place], [address], Progress Notes * DUFFY, VICKIEDOB:1965 (59 yo M)Acc No.[id number]:10/26/2024 Patient:?VICKIE DUFFY :1965???Age:59 Y???Sex:Male Address:[address], [place] [address] * * Date:?
--- OUTSIDE RECORDS SUMMARY | 2024-11-21 14:08 | XMS_ITS ---
Author Organization [facility] Care Team Providers Care Closing Manager Name Role Phone Krista Teresa Unavailable Unavailable Ann Wild Unavailable Unavailable Fatmata Teran Unavailable Unavailable Vidal Rose Unavailable Unavailable Allergies and adverse reactions Code CodeSystem Substance Reaction Severity StartDate Concern Status Tylenol Unknown 02/15/2022 active 88468 RXNORM traMADol Unknown 02/15/2022 active Reglan Unknown 02/15/2022 active 6184 RXNORM Penicillin Unknown 02/15/2022 active Levaquin Unknown 02/15/2022 active 9440 RXNORM Codeine Unknown 02/15/2022 active Care Team Name Role Address Phone Organization Ambrosio Wild PCP [address], [place], [address], [place] (Office): : [facility] 02/15/2022 - 03/09/2022 Krista Teresa [place], [address], [place]Office[place] : [facility] 02/15/2022 - 03/09/2022 Fatmata Teran Attending Physician [address] [place] [address] [place] [address], [address], [place] (Office): [facility] 02/15/2022 - 03/09/2022 Vidal Rose Attending Physician [address], [place], [address], [place] (Office): : [facility] 02/15/2022 - 03/09/2022 Goals Section Description Status Target Date I hope that I can be success fully resuscitated in the event my heart stops. Active 05/17/2022 I want you to keep me free from injury. Active 05/17/2022 I will have relief of pain t hrough the next review date within 45 minutes of pain relieving strategies. Active 05/17/2022 My family and I will participate in my discharge planning. Active 05/17/2022 My skin will remain clean and intact through my next review date Active 05/17/2022 The resident will be free fr om discomfort or adverse reactions related to anti-anxiety therapy through the review date. Active 05/17/2022 The resident will be free fr om discomfort or adverse reactions related to antidepressant therapy through the review date. Active 05/17/2022 The resident will be/remain free of psychotropic drug related complications, including movement disorder, discomfort, hypotension, gait disturbance, constipation/impaction or cognitive/behavioral impairment through review date. Active 0 05/17/2022 The resident will improve cu rrent level of function in (SPECIFY ADLs) through the review date. Resident will be able to: (SPECIFY) Active 05/17/2022 The resident will maintain a dequate nutritional status as evidenced by maintaining weight within 5% of CBW, no s/sx of malnutrition, and consuming at least 75% of at least 3 meals daily through review date. Active 05/17/2022 Functional Status Functional Condition Code Code System Date Dependence on Cane 723321974 SNOMED CT 3 Mental Status Section Date Assessment Total Score Description 03/09/2022 BIMS 15 cognitively int act CAM 0 No delirium ind icated PHQ-9 00 02/22/2022 BIMS 15 cognitively int act CAM 0 No delirium ind icated PHQ-9 07 mild depression Problems Problem # Description Date of onset Resolved Date Code CodeSystem Concern Status 1 DEPRESSION, UNSPECIFIED 02/15/[address] active 2 DIFFICULTY IN WALKING, NOT ELSEWHERE CLASSIFIED 02/15/[address] active 3 ENCOUNTER FOR OTHER ORTHOPEDIC AFTERCARE 02/15/[address] active 4 MUSCLE WEAKNESS (GENERALIZED) 02/15/[address] active 5 NONDISPLACED COMMINUTED FRACTURE OF SHAFT OF LEFT TIBIA, SEQUELA 02/15/[address] active 6 OTHER ABNORMALITIES OF GAIT AND MOBILITY 02/15/[address] active 7 PLEURODYNIA 02/15/[address] active 8 UNSPECIFIED ASTHMA, UNCOMPLICATED 02/15/[address] active 9 UNSPECIFIED FRACTURE OF SHAFT OF LEFT FIBULA, SUBSEQUENT ENCOUNTER FOR CLOSED FRACTURE WITH ROUTINE HEALING 02/15/[address] active 10 UNSPECIFIED VIRAL HEPATITIS C WITHOUT HEPATIC COMA 02/15/[address] active 11 UNSTEADINESS ON FEET 02/15/[address] active 12 WEAKNESS 02/15/[address] active Reason for Referral No Reasons for Referral Entered Social History Social History Observation Description Start Date End Date Code Code System Current Smoking Status Tobacco smoking consumption unknown 213811855 SNOMED CT Sex Assigned At Male 1965 [address]-5 [facility] Vital Signs Code Code System Vitals Name Values and Units Timing Information 25233-0 [facility] Pain Level Value=0.0 03/09/2022 86333-7 [facility] Weight Heoat=025.0 Units=Lbs 9279-1 [facility] Respiratory Rate Value=16.0 Units=/m in 02/19/2022 8462-4 [facility] Blood Pressure-Diastolic Value=85 Un its=mmHg 02/19/2022 8480-6 [facility] Blood Pressure-Systolic Qxpvk=019 Un its=mmHg 02/19/2022 8310-5 [facility] Body Temperature Value=97.8 Units=?? F 02/19/2022 8867-4 [facility] Heart rate Value=75.0 Units=/min 08/2022 18249-0 [facility] O2 % dC Oximetry Value=96.0 Units= % 02/19/2022
--- OUTSIDE RECORDS SUMMARY | 2024-11-21 14:08 | XMS_ITS | Patient Health Record ---
Demographics Address [address] [place] [address] Preferred Language es Marital Status Unknown Voodoo Affiliation Unknown Race White Ethnic Group Not or Lati no Author Organization [facility] Address [address] [place] [address] Care Team Providers Care Records Section Supervisor Name Role Phone Terese Rivera Primary Care Provider Pepe Dangelo Unavailable [phone] Allergies Allergen (clinical drug ingredient) Drug/Non Drug Allergy documented on EMR Reaction Allergy Type Onset Date Status Penicillin Unknown Drug Allergy Active Motrin Unknown Drug Allergy Active codeine Codeine Sulfate Unknown Drug Allergy A ctive Reason For Referral No Information Medications Medication SIG (Take, Route, Frequency, Duration) [...] 3 MG Oral for 34 A ctive Problems Problem Type SNOMED Code ICD Code Onset Dates Problem Status W/U Status Risk Notes Problem Protein calorie malnutrition (629451086) Unspecified protein-calorie malnutrition (E46) Active confirmed Problem Anorexia (54227728) Anorexia (R63.0) Active confirmed Problem Dysphagia (23513288) Dysphagia (R13.10) Active confirmed Problem PEG (percutaneous endoscopic gastrostomy) adjustment/repla cement/removal (Z43.1) Active confirmed Vital Signs Blood pressure diastolic 00 mm Hg 10/09/2024 Height 66 in 10/09/2024 Blood pressure systolic 00 mm Hg 10/09/2024 Weight 147 lbs 10/09/2024 BMI 23.72 kg/m2 10/09/2024 Encounters Encounter Location Date Provider Diagnosis [facility] [address] [place] [address] 10/09/2024 Pepe Stephenson Dysphagia R13.10 ; Unspecified protein-calorie malnutrition E46 and PEG (percutaneous endoscopic gastrostomy) adjustment/replacement /removal Z43.1 [facility] [address] [place] [address] 10/26/2024 Pepe Stephenson [facility] [address] [place] [address] 12/14/2023 Pepe Stephenson Assessments Encounter Date Diagnosis (ICD Code) Assessment Notes Treatment Notes Treatment Clinical Notes Section Notes 10/09/2024 Unspecified protein-calorie malnutrition (ICD-10 - [...] keep you advised of his progress. 10/09/2024 Dysphagia (ICD-10 - R13.10) Once we have the results of the [facility] GI series from 10/2024 and see how [...] advised of his progress. Plan Of Treatment Future Test Test Name Order Date UPPER GI ENDOSCOPY 02/26/2013 COLONOSCOPY 02/26/2013 Next Appt Details Provider Name:Pepe Stephenson , 02/12/2025 11:00:00 AM, [address], [address], [place], [address], Insurance Providers Payer Name Payer Address Payer Phone Subscriber Number Group Number Insured Name Patient Relationship to Insured Coverage Start Date Coverage End Date [facility] [address] Attn Claims [place] Solorzano [id number] [facility] Self - patient is the insured Medical (General) History Medical History History ICD Code Seizures Kidney stones Denies SC,DM,CVA,renal disease HIV infection since age 23-[address] ees [address]-reports neg. hepatitis serologies GERD Mild asthma-Albuterol prn Anxiety Fibromyalgia Gtube placed in July of 2023 HX of DVT's and Pulmonary em boli--2023-sees Dr. Wray--started Eliquis in 06/2024 Surgical History Surgery Date(Month/Year) Hemorrhoidectomy 2003 Eye surgery as a child
--- OUTSIDE RECORDS SUMMARY | 2024-11-21 14:08 | XMS_ITS | Data Portability ---
Author Organization LYNN WHITE MD [facility], Main Office Address [address] [place] [address] Assessment No assessment recorded. Plan of Treatment Reminders Order Date Submit Date Provider Last Modified By Organization Details Last Modified Time Details Appointments RESEARCH FOLLOW UP 2024 11:[address] MD Not available Not available Not available Lab None recorded . Referral None recorded . Procedures None recorded . Surgeries None recorded . Imaging electroc ardiogra m 2023 024 [email or web address] Main Office, [address] [place] [address], [phone], 07/15/2024 15:47:38 Medication Orders clotrima zole 10 mg klaudia 2024 025 [facility]armacy #[id number], [address] [place], [address], 10/21/2024 14:29:45 Biktarvy 50 mg-200 mg-25 mg tablet 2024 025 [facility] #[id number], [address] [place], [address], 10/21/2024 14:30:45 voricona zole 200 mg/5 mL (40 mg/mL) oral suspensi on 2023 024 [facility] #[id number], [address] [place], [address], 05/20/2024 11:43:08 Serostim 6 mg subcutan eous solution 2023 024 [facility], [address] [place], [place] [address], [place], [address], 05/20/2024 11:29:08 megestro l 625 mg/5 mL (125 mg/mL) oral suspensi on 2023 024 [facility][id number], [address] [place], [address], 05/20/2024 11:30:41 fluconaz ole 10 mg/mL oral suspensi on 2023 024 [facility][id number], [address] [place], [address], 04/18/2024 10:19:05 Serostim 6 mg subcutan eous solution [address] [place], [address], 04/18/2024 14:20:41 Patient TargetsNo targets recorded. Patient Instructions Encounter Date Encounter Id Patient Instructions Last Modified By Organization Details Last Modified Time 10/21/2024 [id number] Clotrimazole Oral Lozenge (CLOTRIMAZOLE LOZENGE - MUCOUS MEMBRANE (ORAL)) [email or web address] Not available 10/21/2024 14:29:44 Reason for Referral None Reported. Results Created Date Observation Date Name Description Value Unit Range Abnormal Flag Note LastModifiedBy Organization Detail LastModifiedTime 04/18/2004/18/2024 FLOWER LAINEZ performing lab Perfor angel [facility] [address] [facility] [place] [address] Medic al Direc jj wu MD Not Available [facility] [address] [place] [address], [address], 04/28/2024 10:31:16 04/18/20 24 04/21/2024 FLOWER BEACHU RE paula wu culture CANDID A GLABRA TA Not Available [facility] [address] [place], [address], 04/28/2024 10:31:16 04/18/20 24 04/18/2024 FUNGU S CULTU RE,OT HER performing lab Perfor angel [facility] [address] [facility] [place] [address] Medic al Direc jj wu MD Not Available [facility] [address] [place], [address], 04/28/2024 10:31:19 04/18/20 24 04/22/2024 FUNGU S CULTU RE,OT HER fungus culture,othe r CANDID A GLABRA TA Not Available [facility] [address] [place], [address], 04/28/2024 10:31:19 04/08/20 24 11/12/2023 elect rocar diogr am No observ ation record ed. [email or web address] Not Available 2023 15:34:46 06/18/20 24 06/04/2024 US, abdom en, compl ete No observ ation record ed. [email or web address] [facility], [place], [address], 06/18/2024 11:12:25 07/15/20 24 07/15/2024 elect rocar diogr am No observ ation record ed. [email or web address] Main Office [address] [place] [address], [phone], 07/15/2024 17:12:05 07/17/20 elect rocar diogr am No observ ation record ed. Main Office [address] [place] [address], [address], 07/17/2024 14:15:04 Result Notes None recorded. Problems Name Problem SNOMED Code Status Onset Date Resolution Date Notes Provider Name and Address Organization Details Recorded Time Asthma 025599417 Active 2006 Asthma; snomeddesc ription: Asthma; Report Immunity to Registry: Yes; Asthma; Report Immunity to Registry: Yes; ReasonDate : 10/13/2019 ; ; Start Date : 10/13/2019 Asthma; snomeddesc ription: Asthma; Report Immunity to Registry: Yes; Not Available [facility] 4 06:58:53 Male hypogonad ism 11896075 Active 2012 Male hypogonadi sm; snomeddesc ription: Male hypogonadi sm; Report Immunity to Registry: Yes; Not Available [facility] 4 06:58:53 Diarrhea 62090106 Active 2006 Diarrhea; snomeddesc ription: Diarrhea; Report Immunity to Registry: Yes; Diarrhea, unspecifie d; snomeddesc ription: Diarrhea; Report Immunity to Registry: Yes; Not Available [facility] 4 06:58:53 Substance abuse 46875306 Active 2006 Substance abuse; snomeddesc ription: Substance abuse; Report Immunity to Registry: Yes; Notes: opiate/suad jolene/benzo ; Not Available [facility] 4 06:58:53 Human immunodef iciency virus infection 96937966 Active 1991 Human immunodefi ciency virus [HIV] disease; snomeddesc ription: Human immunodefi ciency virus infection; Report Immunity to Registry: Yes; Human immunodefi ciency virus infection; snomeddesc ription: Human immunodefi ciency virus infection; Report Immunity to Registry: Yes; Not Available [facility] 4 06:58:53 Steatosis of liver 345289138 Active 2006 Steatosis of liver; snomeddesc ription: Steatosis of liver; Report Immunity to Registry: Yes; Notes: u/s 2021; Fatty (change of) liver, not elsewhere classified ; snomeddesc ription: Steatosis of liver; Report Immunity to Registry: Yes; Notes: u/s 2021; Not Available [facility] 4 06:58:53 Herpesvir us infection 40363625 Active 2009 Herpesvira l infection, unspecifie d; snomeddesc ription: Herpes simplex; Report Immunity to Registry: Yes; Notes: HSV 1 pos serology; HSV 2 neg serology; Not Available [facility] 4 06:58:53 Fibromyos itis 85294736 Active 2006 Myalgia and myositis, unspecifie d; snomeddesc ription: Fibromyalg ia; Report Immunity to Registry: Yes; Notes: Chronic pain multiple/c hronic back pain; Not Available [facility] 4 06:58:53 Herpes simplex 06449593 Active 2009 Herpes simplex; snomeddesc ription: Herpes simplex; Report Immunity to Registry: Yes; Notes: HSV 1 pos serology; HSV 2 neg serology; Not Available [facility] 4 06:58:54 Kidney stone 97933887 Active 2001 Calculus of kidney; snomeddesc ription: Kidney stone; Report Immunity to Registry: Yes; Kidney stone; snomeddesc ription: Kidney stone; Report Immunity to Registry: Yes; Not Available [facility] 4 06:58:54 History of calculus of kidney 550311108 Active 2001 History of calculus of kidney; snomeddesc ription: History of calculus of kidney; Report Immunity to Registry: Yes; Not Available [facility] 4 06:58:54 Type B viral hepatitis 86299353 Active 2006 Type B viral hepatitis; snomeddesc ription: Type B viral hepatitis; Report Immunity to Registry: Yes; Notes: core ab pos; s ag neg; s ab neg HBV vL nondetecte d 2016; 2017; Not Available [facility] 4 06:58:54 Hyperplas ia of prostate 055763717 Active 2014 Hyperplasi a of prostate, unspecifie d, without urinary obstructio n and other lower urinary symptoms (LUTS); snomeddesc ription: Hyperplasi a of prostate; Report Immunity to Registry: Yes; Hyperplas ia of prostate; snomeddesc ription: Hyperplasi a of prostate; Report Immunity to Registry: Yes; Not Available [facility] 4 06:58:54 Anxiety 43273166 Active 1996 Anxiety; snomeddesc ription: Anxiety; Report Immunity to Registry: Yes; Not Available [facility] 4 06:58:54 Testicula r hypofunct ion 653037166 Active 2012 Other testicular hypofuncti on; snomeddesc ription: Male hypogonadi sm; Report Immunity to Registry: Yes; Not Available [facility] 4 06:58:54 Seasonal allergic rhinitis 702732132 Active 2012 Other seasonal allergic rhinitis; snomeddesc ription: Seasonal allergy; Report Immunity to Registry: Yes; Notes: hx nasal congestion ; Not Available [facility] 4 06:58:54 Onychomyc osis due to dermatoph yte 646267573 Active 2017 Tinea unguium; snomeddesc ription: Onychomyco sis; Report Immunity to Registry: Yes; Notes: feet digits; Not Available [facility] 4 06:58:55 Sleep apnea 13991384 Active 1999 Sleep apnea; snomeddesc ription: Sleep apnea; Report Immunity to Registry: Yes; Unspecifi ed sleep apnea; snomeddesc ription: Sleep apnea; Report Immunity to Registry: Yes; Not Available [facility] 4 06:58:55 Psychoact marj substance abuse 61643502 Active 2006 Other psychoacti ve substance abuse, uncomplica lucho; snomeddesc ription: Substance abuse; Report Immunity to Registry: Yes; Notes: opiate/suad jolene/benzo ; Not Available [facility] 4 06:58:55 Viral hepatitis B without hepatic coma 478533270 Active 2006 Unspecifie d viral hepatitis B without hepatic coma; snomeddesc ription: Type B viral hepatitis; Report Immunity to Registry: Yes; Notes: core ab pos; s ag neg; s ab neg HBV vL nondetecte d 2016; 2017; Not Available [facility] 4 06:58:55 Blood chemistry outside reference range 497711863 Active 2012 Other specified abnormal findings of blood chemistry; snomeddesc ription: Decreased testostero ne level; Report Immunity to Registry: Yes; Notes: hypogoandi sm; Not Available [facility] 4 06:58:55 Arthritis 2777041 Active 1998 Arthritis; snomeddesc ription: Arthritis; Report Immunity to Registry: Yes; Notes: Osteoatrth ris multiple; Not Available [facility] 4 06:58:55 History of urinary stone 969957688 Active 2001 Personal history of urinary calculi; snomeddesc ription: History of calculus of kidney; Report Immunity to Registry: Yes; Not Available [facility] 4 06:58:56 Fibromyal mika 498720283 Active 2006 Fibromyalg ia; snomeddesc ription: Fibromyalg ia; Report Immunity to Registry: Yes; Notes: Chronic pain multiple/c hronic back pain; Not Available [facility] 4 06:58:56 Lyme disease 77972474 Active 2017 Lyme disease; Report Immunity to Registry: Yes; Notes: tx cefuroxime x14 d (hx all Doxy); Not Available [facility] 4 06:58:56 Headache 27666878 Active 2008 Headache; snomeddesc ription: Headache; Report Immunity to Registry: Yes; Notes: migraine; Headache; snomeddesc ription: Headache; Report Immunity to Registry: Yes; Notes: migraine; Not Available [facility] 4 06:58:56 Hypertens marj disorder 59168965 Active 2017 Hypertensi ve disorder; snomeddesc ription: Hypertensi ve disorder; Report Immunity to Registry: Yes; Not Available [facility] 4 06:58:56 Arthropat hy 223327313 Active 1998 Arthropath y, unspecifie d, site unspecifie d; snomeddesc ription: Arthritis; Report Immunity to Registry: Yes; Notes: Osteoatrth ris multiple; Not Available [facility] 4 06:58:56 Essential hypertens ion 96905720 Active 2017 Essential (primary) hypertensi on; snomeddesc ription: Hypertensi ve disorder; Report Immunity to Registry: Yes; Not Available [facility] 4 06:58:57 Testoster one level below reference range 156548019 Active 2012 Decreased testostero ne level; snomeddesc ription: Decreased testostero ne level; Report Immunity to Registry: Yes; Notes: hypogoandi sm; Not Available [facility] 4 06:58:57 Insomnia 986365209 Active 1996 Insomnia; Report Immunity to Registry: Yes; Not Available [facility] 4 06:58:57 Anxiety state 547450192 Active 1996 Anxiety state, unspecifie d; snomeddesc ription: Anxiety; Report Immunity to Registry: Yes; Not Available [facility] 4 06:58:57 Onychomyc osis 919996553 Active 2017 Onychomyco sis; snomeddesc ription: Onychomyco sis; Report Immunity to Registry: Yes; Notes: feet digits; Not Available [facility] 4 06:58:57 Chronic hepatitis C 900735253 Active 2006 Chronic hepatitis C without mention [...] neg 2015;2017; 12/2021 F2 ; Not Available [facility] 4 06:58:57 Depressiv e disorder 79069581 Active 1996 Depressive disorder, not elsewhere classified ; snomeddesc ription: Depressive disorder; Report Immunity to Registry: Yes; Depressiv e disorder; snomeddesc ription: Depressive disorder; Report Immunity to Registry: Yes; Not Available [facility] 4 06:58:58 Seasonal allergy 978704554 Active 2012 Seasonal allergy; snomeddesc ription: Seasonal allergy; Report Immunity to Registry: Yes; Notes: hx nasal congestion ; Not Available [facility] 4 06:58:58 Loss of appetite 73272090 Active 2012 Anorexia; snomeddesc ription: Loss of appetite; Report Immunity to Registry: Yes; Loss of appetite; snomeddesc ription: Loss of appetite; Report Immunity to Registry: Yes; Not Available [facility] 4 06:58:58 Seizure 26319027 Active 2000 Seizure; snomeddesc ription: Seizure; Report [...] Report Immunity to Registry: Yes; Not Available [facility] 4 06:58:58 Problem Notes None recorded. Procedures Surgical History None recorded. Imaging Results Imaging Date Name Status LastModified by Organization Details LastModified Time 11/12/2023 electrocardiogram completed [email or web address] Informa tion not available 04/08/2024 15:34:46 06/04/2024 US, abdomen, complete completed [email or web address] [place], [address], 06/18/2024 11:12:25 07/15/2024 electrocardiogram completed [email or web address] Main Of [address], [address], 07/15/2024 17:12:05 07/17/2024 electrocardiogram completed [email or web address] Main Of [address], [address], 07/17/2024 14:15:04 Procedure Notes None recorded. Medical Equipment None Reported. Allergies Allergen ID Allergen Name Allergen Category Reaction Reaction Severity Criticality Documentation Date Start Date Code Code System Note Provider Name and Address Organization Details Recorded Time 449 Reglan medicatio n Not available Not available Not available 10/31/20232012 9230 RxNorm Comme nt: adver se_ev ent_t ype: 66311 8002; ; Not Available [facility] 4 06:50:47 715 Motrin medicatio n Not available Not available Not available 10/31/2023201248 8 RxNorm Comme nt: adver se_ev ent_t ype: 17425 8002; ; Not Available [facility] 4 06:50:47 716 doxycycli ne Not available Not available Not available Not available 10/31/20232017 3640 RxNorm Comme nt: adver se_ev ent_t ype: 70820 8002; ; Not Available [facility] 4 06:50:47 Medications Name Sig Start Date [...] ole 10 mg klaudia DISSOLVE 1 TABLET IN MOUTH TWICE A DAY BY ORAL ROUTE FOR 30 DAYS, FOR THRUSH. active Not Available Not Available No t [...] Available Serostim 6 mg subcutane ous solution INJECT 6 MG EVERY DAY BY SUBCUTAN EOUS ROUTE FOR 30 DAYS. active Not Available Not Available No t Available acetamino phen 325 mg tablet TOME DOS TABLETAS POR V A ORAL CADA SEIS HORAS CUANDO SEA NECESARI O PARA EL DOLOR-WY LD POR 10 D active Not Available Not Available No [...] Available clindamyc in HCl 300 mg capsule TAKE 1 CAPSULE (300 MG) BY MOUTH 3 TIMES DAILY FOR 7 DAYS active Not Available Not [...] 1 TABLET (50 MG) BY MOUTH EVERY 8 (EIGHT) HOURS IF NEEDED FOR SEVERE PAIN FOR [...] fluconazo le 10 mg/mL oral suspensio n TAKE 10 MLS VIA GASTRIC TUBE ONCE A DAY FOR 14 DAYS active Not Available Not [...] tubo gastrico cada 12 horas por 10 rodrigues active Not Available Not Available No t [...] no; Not Available Not Available Not Available diclofena [...] Available Liquid Nutrition oral 0 Quantity : 06949; Duration : 30; 0 refill(s ) 09/30 [...] sulfate HFA 90 mcg/actua tion aerosol inhaler INHALE 2 PUFFS EVERY 6 HOURS IF NEEDED FOR WHEEZING [...] 30; VACCINE_ IND: no; SU_FULL_ NAME: Cheryl scaels; Not Available Not Available Not Available risperido [...] Available chlorhexi dine gluconate 0.12 % mouthwash PLEASE SEE ATTACHED FOR DETAILED DIRECTIO NS [...] mg iron) tablet TOME 1 TABLETA POR VIA ORAL DOS VECES AL [facility] active Not Available Not Available No t [...] NAME: Meningoc occal MCV4O; SU_FULL_ NAME: Cheryl Palomo yordy; VIS_DATE : 14:17:37 .0; Not Available Not Available Not Available Prevnar 13 (PF) 0.5 mL intramusc ular syringe - Quantity : ; Duration : 30; 0 refill(s ) 12/31 completed Duration : 30; VACCINE_ IND: yes; VACCINE_ NAME: Pneumoco ccal conjugat e PCV 13; SU_FULL_ NAME: Brandonsusan Cheryl scales; Not Available Not Available Not Available Robitussi [...] Not Available Not Available Not Available Flulaval 7492-0866 45 mcg (15 mcg x 3)/0.5 mL intramusc ular suspensio n - Quantity : ; Duration : 30; 0 refill(s ) 01/30 completed Duration : 30; VACCINE_ IND: yes; VACCINE_ NAME: Influenz a, seasonal , injectab le; SU_FULL_ NAME: Brandonsusan scalesCheryl; Not Available Not Available Not Available calcium [...] Not Available Not Available Not Available Afluria 0457-0929 45 mcg (15 mcg x 3)/0.5 mL [...] seasonal , injectab le; SU_FULL_ NAME: Cheryl Martsusan scales; Not Available [...] Pneumoco ccal conjugat e PCV20, polysacc haride [id number] conjugat e, adjuvant , PF; Not Available Not Available Not Available Vitals Date Recorded Body height Heart rate Body temperature Respiratory rate Body mass index (BMI) Body weight Systolic blood pressure Diastolic blood pressure Provider Name and Address Organization Details Last Updated DateTime 4 162.56 cm 82 /min 97.7 [degF] 18 /min 21.3 kg/m2 05774.4 5 g 123 mm[Hg] 85 mm[Hg] Jerome PENDLETON 4 14:10:17 Date Recorded Body height Heart rate Respiratory rate Body temperature Body mass index (BMI) Body weight Systolic blood pressure Diastolic blood pressure Provider Name and Address Organization Details Last Updated DateTime 4 162.56 cm 109 /min 20 /min 97.2 [degF] 21.1 kg/m2 60508.8 6 g 111 mm[Hg] 90 mm[Hg] Jerome STREET MD [facility] 4 12:07:11 Date Recorded Body height Heart rate Respiratory rate Body temperature Body mass index (BMI) Body weight Systolic blood pressure Diastolic blood pressure Provider Name and Address Organization Details Last Updated DateTime 4 162.56 cm 89 /min 16 /min 98 [degF] 20.6 kg/m2 30434.0 8 g 123 mm[Hg] 90 mm[Hg] Jerome STREET MD [facility] 4 14:28:38 Date Recorded Body height Provider Name an d Address Organization Details Last Updated DateTime 07/15/2024 [address] MD [facility] 07/15/2024 15:22:29 Date Recorded Body temperature Body mass index (BMI) Body weight Respiratory rate Heart rate Systolic blood pressure Diastolic blood pressure Provider Name and Address Organization Details Last Updated DateTime 4 98.7 [degF] 20.6 kg/m2 00967.0 8 g 20 /min 87 /min 120 mm[Hg] 80 mm[Hg] Cheryl Street MD [address] [place] [address], [phone], [address]NN [address] MD [facility] 4 15:46:02 Date Recorded Heart rate Body temperature Body weight Systolic blood pressure Diastolic blood pressure Provider Name and Address Organization Details Last Updated DateTime 10/21/2024 98 /min 98.2 [degF] 69111.2 6 g 118 mm[Hg] 97 mm[Hg] Lexis STREET MD [facility] 5 12:04:23 Social History None recorded. [...] Time Meningococcal MCV4O 9 completed Not Available [facility] 10/31/2023 06:54:49 zoster live 9 completed Not Available [facility] 10/31/2023 06:54:50 Influenza, split virus, quadrivalent, preservative 9 completed Not Available [facility] 10/31/2023 06:54:50 Influenza, split virus, quadrivalent, preservative 8 completed Not Available [facility] 10/31/2023 06:54:50 Influenza, split virus, quadrivalent, preservative 0 completed Not Available [facility] 10/31/2023 06:54:50 Past Encounters Encounter ID Performer Location Encounter Start Date Encounter Closed Date Diagnosis/Indication Diagnosis SNOMED-CT Code Diagnosis ICD10 Code Diagnosis Note [id number] Krista Castellano Main Office [address] [place] [address] 05/25/2023 09:48:40 06/27/2023 09:16:16 Human immunodeficiency virus infection 48943996 B20 HIV. Continue Biktarvy 1 tab po [...] /Tivicay.. safe sex. plan of care reviewed [address] MD Main Office [address] [place] [address] 08/24/2023 09:33:00 08/24/2023 10:46:09 Human immunodeficiency virus infection 50793510 B20 HIV. Continue Biktarvy 1 tab po [...] /Tivicay.s afe sex.labs Septemberlan of care reviewed [address] MD Main Office [address] [place] [address] 11/12/2023 11:34:42 11/16/2023 15:00:47 Human immunodeficiency virus infection 76901505 B20 HIV.Contin ue Biktarvy 1 tab po qd.U=Upt aware of PreP availabili ty.condom use.plan of care reviewed Adult heal th examination 737262245 Z00.[address] MD Main Office [address] [place] [address] 11/21/2023 10:59:43 11/23/2023 14:55:[address] MD Main Office [address] [place] [address] 01/14/2024 09:27:39 01/16/2024 13:51:[address] MD Main Office [address] [place] [address] 01/16/2024 10:24:39 01/16/2024 11:50:10 Human immunodeficiency virus infection 91383388 B20 HIV.Contin ue Biktarvy 1 tab po qd.U=Upt aware of PreP availabili ty.condom use.labs todayplan of care reviewed Candidiasis of mouth 797 [address]159 B37.0 nystatin 5cc po qid x 14 days. swish and spit.call with any side effects.ba cterial/fu ngal swab obtained. 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 [address] MD Main Office [address] [place] [address] 02/14/2024 12:00:04 02/14/2024 12:24:19 Human immunodeficiency virus infection 05145741 B20 HIV.Contin ue Biktarvy 1 tab po qd.U=Upt aware of PreP availabili ty.DoxyPEP reviewedco ndom use.labs todayplan of care reviewed Methicilli n resistant Staphylococcus aureus infection 323695872 A49.02 swab culture 01/2024 Candidiasi s of the esophagus B37.81 sandy glabratafl uconazole 100mg po qd x 14 dayscall with any side effects. Weight loss 32706012 R63 .4 contributi ng factor sandy, MRSA, HIV among othermight benefit from Serostim.w ill review with himG tube [address] MD Main Office [address] [place] [address] 02/21/2024 11:08:05 02/21/2024 12:09:56 Human immunodeficiency virus infection 53698514 B20 HIV.Contin ue Biktarvy 1 tab po qd.complia nce reviewedU= Upt aware of PreP availabili ty.DoxyPEP reviewedco ndom use.labs todayplan of care reviewed Candidiasi s of the esophagus .81 sandy glabratato complete fluconazol e 100mg po bid x 14 days: (10mg/ml) 10ml by G tube bidcall with any side effects. Methicilli n resistant Staphylococcus aureus infection 980715524 A49.02 swab culture urr ently on Bactrim oral suspension (200mg- 40mg/5ml) since 02/15-20ml q 12 hrs G tube x 10 days Cachexia a ssociated with AIDS 993995843 B20 R64 weight loss. frail. progressin g.contribu ting factor sandy, MRSA, HIV among other. G tubeSerost im 6mg sq qd will be prescribed with the goal of helping w weight gain, increase muscle mass gain, and increase enduranceh e has visiting nurse who could assist with daily injections . [address] MD Main Office [address] [place] [address] 02/25/2024 10:24:53 02/25/2024 11:09:27 Human immunodeficiency virus infection 78950919 B20 HIV.Contin ue Biktarvy 1 tab po qd.complia nce reviewedU= Ucondom use.labs todayplan of care reviewed Candidiasi s of the esophagus B37.81 sandy glabratawi ll continue fluconazol e 200 mg po qd x 14 days: (10mg/ml) 10ml by G tube QD;will on next appointmen t for further tx va suppressio n tx.call with any side effects. Cachexia a ssociated with AIDS 060713449 B20 R64 weight loss. frail. progressin g.approved Serostim 6mg sq qd; awaiting delivery to the office. will be prescribed with the goal of helping w weight gain, increase muscle mass gain, and increase enduranceh e has visiting nurse who could assist with daily injections .ensure tidmegace 625 mg qd. Methicilli n resistant Staphylococcus aureus infection 247850095 A49.02 swab culture 01/2024will complete 10 days of Bactrim oral suspension (200mg- 40mg/5ml) since 02/15-20ml q 12 hrs G tube on 02/27/[address] MD Main Office [address] [place] [address] 03/14/2024 10:24:00 03/14/2024 10:29:25 Cachexia associated with AIDS [id number] R64 B20 gained 2 pounds. probably improved sandy esophagiti s 2nd to inhaled steroids.S Tart Serostim 6mg s/c qd abdomen. first dose administer ed today. Tolerated well; goalis to increase weight, endurance and muscle massHe will have PLAYGROUND AIDE and nurse help with daily injections .potential side effects reviewed.t o call with any concernshe will bead picker Megace today, and start it as well(G tube) qd to increase apetitte Human immunodeficiency virus infection 59012106 B20 HIV.Contin ue Biktarvy 1 tab po qd.complia nce reviewed Candidiasi s of the esophagus 47560873 B37.81 sandy glabratawi ll continue 2 more weeks of fluconazol e 200 mg po qd x 14 days: (10mg/ml) 10ml by G tube QD;might benefit from qw suppressio n tx.call with any side effects. [address] MD Main Office [address] [facility] [place] [address] 04/18/2024 09:52:00 04/18/2024 11:19:01 Cachexia associated with AIDS [id number] R64 B20 124 lbs. gained weightcont inue Serostim 6mg s/c qd abdomen. goalis to increase weight, endurance and muscle masscontin ue Megace G tube qdCNA and nurse helping with compliance and tx.potenti al side effects reviewed.t o call with any concerns Human immunodeficiency virus infection 84979330 B20 HIV.Contin ue Biktarvy 1 tab po qd.padmini hoffman reviewedla bs today Candidiasi s of the esophagus 31104699 B37.81 sandy glabratawi ll continue fluconazol e 200 (10ml) mg G tube qw for suppressio n tx.call with any side effects. Aspiration pneumonia 422 604648 J69.0 get discharge summaryon antibiotic ;eat standing or sitting; and not [place] [address] MD Main Office [address] [place] [address] 05/20/2024 10:17:53 05/20/2024 12:44:49 Cachexia associated with AIDS [id number] R64 B20 continue Serostim 6mg s/c qd abdomen. goal is to increase weight, endurance and muscle masscontin ue Megace G tube qd 5cc qdCNA and nurse helping with compliance and tx.potenti al side effects reviewed.t o call with any concerns Human immunodeficiency virus infection 39224690 B20 HIV.Contin ue Biktarvy 1 tab po qd.padmini hoffman reviewedla bs today Candidiasi s of the esophagus 83983264 B37.81 sandy glabrataho ld fluconazol e for nowSTART 1 tab po bid x 21 says for esophageal sandy glabrata.c all with any side effects. [address] MD Main Office [address] [place] [address] 06/18/2024 10:10:09 06/18/2024 11:12:33 Cachexia associated with AIDS 179721282 R64 B20 continue Serostim 6mg s/c qd abdomen. goal is to increase weight, endurance and muscle massCNA and nurse helping with compliance and tx.megace on holdpotent ial side effects reviewed.t o call with any concerns Human immunodeficiency virus infection 76598957 B20 HIV.Contin ue Biktarvy 1 tab po qd.padmini hoffman reviewedla bs today Inflammato ry disease of liver 456465635 K75.9 Suspect 2nd to concomitan t medication s. ongoingdo not re-start fluconazol e nor megacenega tive infectious and non-infect ious workupto call or ER if jaundice, abd pain, n/v/d marce huertas History of calculus of kidney [id number] Z87.442 u/s 05/[address] scan 02/2024hydr ation Aspiration pneumonia 422 774786 J69.0 s/p aspiration on CT AngioNPO per instructio n given to him in hospital; nutrition by G tubes/p (ceftriaxo ne,Azithro ,Flagyl while in Hospital;d ischarged on azithro and cefpodoxim e x 3 days which he completed. leg elevationa void sedating meds as much as possible Deep venou s thrombosis of lower extremity [id number] I82.409 left lower extremity doppler showed DVT of gastrocnem ius vein;on tx w w Eliquis bid . Pulmonary embolism [address] Angio was positive for Acute lobar PEs/p heparin; ongoing Eliquis bidmed list reviewed.n o drug use for years. not on maintenanc e tx.denies current ETOH use. [address] MD Main Office [address] [place] [address] 07/15/2024 15:10:10 07/15/2024 15:45:30 Cachexia associated with AIDS 920145083 R64 B20 continue Serostim 6mg s/c qd abdomen. goal is to increase weight, endurance and muscle masspotent ial side effects reviewed.t o call with any concerns Human immunodeficiency virus infection 40522724 B20 HIV.Contin ue Biktarvy 1 tab po qd.padmini hoffman reviewedla bs Candidiasi s of the esophagus 84975173 B37.81 on clotrimazo le. swish and spit qd Medication monitoring [address] MD Main Office [address] [place] [address] 10/21/2024 12:22:54 10/21/2024 16:48:51 Cachexia associated with AIDS 975688856 R64 B20 improvedco ntinue Serostim 6mg s/c qd abdomen. goal is to increase weight, endurance and muscle masspotent ial side effects reviewed.m ay start decreasing dose in 1-2 months if further weight gainon Boost protein shakesto call with any concerns Human immunodeficiency virus infection 08632535 B20 HIV.Contin ue Biktarvy 1 tab po qd.complia nce reviewedla bs Candidiasi s of the esophagus 92292958 B37.81 on clotrimazo le. swish and spit qd/BID PRN Health Concerns Section Related Observation LastModified by Organization Detai ls LastModified Time None Recorded Concern Status LastModified by Organization Details LastModified Time None Recorded Advance Directives Directive None Recorded Payers Encounter Date Sequence Insurance Name Policy Number Policy Perry Covered Member ID Perry Member ID Guarantor Name 04/18/2024 1 [employer] CARE [employer]IANCE - DOS ON OR AFTER 2022 - MEDIC[place] VANTAGE - PPO) [facility] [id number] [facility] 05/20/2024 1 [employer] - DOS ON OR AFTER 2022 - [place]ANTAGE - PPO) Benjamin Fall [id number] [facility] 06/18/2024 1 [employer] CARE [employer] - DOS ON OR AFTER 2022 - [place] VANTAGE - PPO) Benjamin Fall [id number] [facility] 07/15/2024 1 [employer] C[employer]IANCE - DOS ON OR AFTER 2022 - [place]ANTAGE - PPO) Benjamin Fall [id number] [facility] 10/21/2024 1 [employer] - DOS ON OR AFTER 2022 - MEDIC[place]/AD VANTAGE - PPO) [facility] Fall [id number] [facility] Notes Date Note Type Note Provider [...] ETOh use.reports was Hospitalized 3 days at [facility] this week with pneumonia 04/15- 04/17. discharge summary not available at time of visit. reports use of antibiotic; he says he was drinking shake in his bed and choked on it. dsicharge summery to be obtained. feels well. no SOB. no cough03/2024 HIV VL nondetctedHIV VL nondetetcted01/2024 HIV VL nondetcetd;eGFR=76;AST /ALT wnl;11/2023 LS4=592; HIV VLnondetceted; no infections.01/2022 TJ1=188; HIV VL nondetceted; eGFR>60; ALt/AST wnl; syphilis neg; GC/chlamydia neg Cheryl Street MD [address] [place] [address], [phone], [facility] [address] [facility] 04/18/2024 14:20:48 05/20/2024 text/html HIVOn [...] VL nondetetcted01/2024 HIV VL nondetcetd;eGFR=76;AST /ALT wnl;11/2023 BS2=752; HIV VLnondetceted; no infections.01/2022 NF7=833; HIV VL nondetceted; eGFR>60; ALt/AST wnl; syphilis neg; GC/chlamydia neg [address]yl Street MD [address] [place] [address], [phone], [facility] [address] [facility] 05/20/2024 12:17:47 06/18/2024 text/html HIVOn Biktarvy 1 tab po qd.reports daily compliance. denies missing dose.resolved thrush. hx recurrence. fluconazole and voriconazole on hold. Pt reports was hospitalized at [facility] 06/10/24-06/13/24 ( got to ER [...] VL nondetetcted01/2024 HIV VL nondetcetd;eGFR=76;AST /ALT wnl;11/2023 GA9=886; HIV VLnondetceted; no infections.01/2022 AJ2=571; HIV VL nondetceted; eGFR>60; ALt/AST wnl; syphilis neg; GC/chlamydia neg [address]yl [address] MD [address] [place], [phone], [facility] [address] [facility] 06/18/2024 18:19:56 07/15/2024 text/html HIVOn Biktarvy 1 tab po qd.reports daily compliance. denies missing dose.thrush on/off: recurrence. on clotrimazole daily .stable weight 120lbshe says he is eating more and apetitte has improvedfeels strongergetting serostim dailyno hospitalizations since he was last seenmed list reviewed.On Eliquis and enoxaparin. recent PE/DVT.VL nondetected03/2024 HIV VL nondetctedHIV VL nondetetcted01/2024 HIV VL nondetcetd;eGFR=76;AST /ALT wnl;11/2023 ZE4=338; HIV VLnondetceted; no infections. Cheryl Street MD [address] [place] [address], [phone], [facility] [facility] 07/15/2024 15:47:48 10/21/2024 text/html HIVOn Biktarvy [...] notify site start date and confirm medication. 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 Cheryl Street MD [address] [place] [address], [phone], [facility] [address] [facility] 10/21/2024 14:34:28
--- OUTSIDE RECORDS SUMMARY | 2024-11-21 14:09 | XMS_ITS | Clinical Summary ---
Author Organization [facility] Address [address] [place] [address] Care Team Providers Care Dowel Inspector Name Role Phone Zora Arce PA-C Primary Care Provider [phone] Source Comments PLEASE NOTE, if this patient [...] EC tabletIndications:H IV (human immunodeficiency virus infection) ([facility]) Take 1 Tab by mouth once daily. [...] NUTRITION) liquidIndications:H IV (human immunodeficiency virus infection) ([facility]) Take 1 Can by mouth 3 (three) [...] nasal sprayIndications:As thma, intermittent, uncomplicated Place 1 [place] into the nostril(s) as needed for congestion. [...] 01/27/2015 Generalized anxiety disorder 01/27/2015 Seizure disorder ([facility]) 01/27/2015 Major depressive disorder, r ecurrent, severe without psychotic features ([facility]) 01/27/2015 Overview (01/27/2015): [facility] HIV (human immunodeficiency virus infection) ( [facility]) 01/27/2015 Chronic back pain 01/27/2015 Hepatitis C [...] Plan of Treatment [place] on file [place] Subscriber Plan / Payer ( fective 2015-Present) Name:Benjamin Fall Relation to Subscriber:Self Name:Benjamin Fall Payer ID:[id number] Group ID:Not on file Type:Medicaid Address: [address] DENTAL Care Teams Dowel Inspector Relationship Specialty Start Date End Date Zora Arce PA-C [address] [place] [address] PCP - General 11/05/18
== END 2024-11-21 14:00 | disposition home or self-care (01) ==
PROVIDERS: Registered Nurse Emergency; Emergency Provider Emergency Medicine; PCP Student in an Organized Health Care Education/Training Program
DX: M71.21 Synovial cyst of popliteal space [Baker], right knee (principal); R60.0 Localized edema; M25.561 Pain in right knee; Z87.891 Personal history of nicotine dependence; Z79.899 Other long term (current) drug therapy
CPT/HCPCS: 36415; 80053; 85025; 85610; 93971; 99282; 99284

== ENCOUNTER → 2024-11-21 11:36 | Outpatient (BNV) | payer OTHER, SELFPAY | PROVIDERS: Emergency Provider Emergency Medicine; PCP Student in an Organized Health Care Education/Training Program; Visit Provider Radiology Diagnostic Radiology | DX: M25.561 Pain in right knee (principal) | CPT/HCPCS: 93971 ==

== ENCOUNTER 2024-11-25 09:53 | Outpatient (AMB) | payer OTHER, SELFPAY ==
--- NOTE | 2024-11-25 10:13 | AM.OFFVISNUR ---
Intake Visit Reasons: Evenity #2 Allergies Seasonal Allergies Allergy (Intermediate, Verified 11/21/24 11:38) Eye Drainage codeine [From Tylenol-Codeine #3] Allergy (Mild, Verified 11/21/24 11:38) Rash levofloxacin [From Levaquin] Allergy (Mild, Verified 11/21/24 11:38) Rash metoclopramide [From Reglan] Allergy (Mild, Verified 11/21/24 11:38) Rash acetaminophen [Tylenol-Codeine #3] Allergy (Unknown, Verified 11/21/24 11:38) Rash Penicillins [PENICILLINS] Allergy (Unknown, Verified 11/21/24 11:38) Rash ibuprofen [From Motrin] Adverse Reaction (Unknown, Verified 11/21/24 11:38) Reflux Office Meds romosozumab-aqqg 210 mg/2.34 mL(105 mg/1.17 mL x2)subcutaneous syringe Performing Provider: Ritu Scott MD [place] [facility] Administered by: Dorothy Melendez RN on 11/25/24 10:13 Dose Route Admin Location Dispensed Lot Number Expiration Date NDC Hrbp 210 mg subcut bilateral upper arms 2.34 mL [id number] 12/08/26 70146-208-85 [facility] Comments: Patient accompanied by Ashtyn OKEEFE, who declined having clinical laboratory service teacher, she provided interpretation. Consent form signed by patient. Pt denies any adverse reactions to first set of evenity injections. Pt tolerated injections done today well. Scheduled for third injections in 4 weeks. Assessment & Plan Assessment & Plan Orders: Orders AMB Romosozumab Injection Patient Supplied Today M81.0 - Age-related osteoporosis without current pathological fracture Medications: New romosozumab-aqqg 210 mg (2.34 mL) subcut ONCE 2.34 mL 0RF M81.0 - Age-related osteoporosis without current pathological fracture Coding
--- OUTSIDE RECORDS SUMMARY | 2024-11-25 11:09 | XMS_ITS | Data Portability ---
Author Organization [facility] [employer] [facility], Main Office Address [address], [address] [place] [address] Care Team Providers Care Office Support Specialist Name Role Phone BRENDAN HOLLINGSWORTH - 2ND FLOOR OTHER Assessment Encounter Date Assessment Date Assessment LastModified by Organization Details LastModified Time 09/18/2023 09/18/2023 45 minutes spent on coordination of discharge. [email or web address] Not available 09/18/2023 09:47:05 Plan of Treatment [...] and Address Organization Details Recorded Time Asthenia 29128627 Active 2022 MAURO DUFFY NP [address], [address], [place], [address], [facility] [employer] 3 12:08:07 Moderate protein-calori e malnutrition (weight for age 60-74 percent of standard) 495295794 Active 2022 MAURO DUFFY NP [address], [address], [place], [address], [facility] [employer] 3 12:08:23 Pneumonia 916042042 Active 2022 MAURO DUFFY NP [address], [address], [place], [address], [facility] [employer] 3 12:08:31 Pleural effusion 38436283 Active 2022 MAURO DUFFY NP [address], [address], [place], [address], [facility] [employer] [facility] 3 12:08:59 Hypertensive disorder 89434655 Active 2022 MAURO DUFFY NP [address], [address], [place], [address], [facility] 3 12:09:07 Human immunodeficien cy virus infection 46673282 Active 2022 MAURO DUFFY NP [address], [place], [address], [facility] [facility] 3 12:09:12 Viral hepatitis C 64687089 Active 2022 MAURO DUFFY NP [address], [place], [address], [facility] 3 12:09:28 Mixed anxiety and depressive disorder 184772766 Active 2022 MAURO DUFFY NP [address], [place], [address], [facility] 3 12:09:40 Asthma 688004268 Active 2022 MAURO DUFFY NP [address], [place], [address], [facility] 3 12:09:56 Acute dermatitis 71434057 Active 2022 MAURO DUFFY NP [address], [place], [address], [facility] 3 12:14:27 Migraine 37277483 Active 2022 MAURO DUFFY NP [address], [address], [place], [address], [facility] 3 12:25:08 Non-traumatic rhabdomyolysis 287636873 Active 2022 Leilani Romeo MD [address], [address], [place], [address], [facility] 3 10:08:19 Moderate persistent asthma 860797776 Active 2022 Leilani Romeo MD [address], [place], [address], [facility] 3 10:18:10 Insomnia 232907836 Active 2022 Leilani Romeo MD [address], [address], [place], [address], [facility] 3 10:19:09 Polysubstance abuse 760764627 Active 2022 Leilani Romeo MD [address], [address], [place], [address], [facility] 3 10:19:11 Adult failure to thrive syndrome 267636539 Active 2022 Maryjane Glover NP [address], [address], [place], [address], [facility] 3 13:27:15 Anemia 094692783 Active 2022 Maryjane Glover NP [address], [address], [place], [address], [facility] 3 13:30:43 Dysphagia 73403869 Active 2022 Leilani Romeo MD [address], [address], [place], [address], [facility] 3 20:51:38 Gastroesophage al reflux disease without esophagitis 497788468 Active 2022 Leilani Romeo MD [address], [address], [place], [address], [facility] 3 20:54:24 Chronic pain 12012784 Active 2022 Leilani Romeo MD [address], [place], [address], [facility] 3 20:55:56 Problem Notes None recorded. Medical Equipment None Reported. Allergies Allergen ID Allergen Name Allergen Category Reaction Reaction Severity Criticality Documentation Date Start Date Code Code System Note Provider Name and Address Organization Details Recorded Time 81731 codeine medicatio n Not available Not available Not available 01/17/2023 2670 RxNorm rash Not Available Not Available Not Available 16628 Levaquin medicatio n Not available Not available Not available 01/17/2023 92455 2 RxNorm rash Not Available Not Available Not Available 93763 Reglan medicatio n Not available Not available Not available 01/17/2023 9230 RxNorm rash Not Available Not Available Not Available 97320 ibuprofen medicatio n Not available Not available Not available 01/17/2023 5640 RxNorm reflu x Not Available Not Available Not Available 71559 Product containin g penicilli n (product) medicatio n Not available Not available Not available 01/17/2023 87368 8001 SNOMED rash Not Available Not Available Not Available 41034 Ultram medicatio n Not available Not available Not available 01/17/2023 50909 6 RxNorm N/V Not Available Not Available Not Available 56962 acetamino phen medicatio n other Not available unabletoasse ss 08/03/2023 161 RxNorm unkno wn Not Available Not Available Not Available 45817 [employer] environme nt,medica tion other Not available unabletoasse 08/03/2023 08301 6 RxNorm unkno wn Not Available Not [...] Details Last Updated DateTime 3 167.64 cm 94209.5 4 g 17.4 kg/m2 86 /min 18 /min 97.6 [degF] 91 % 91 % 115 mm[Hg] 68 mm[Hg] Maryjane Glover NP [address], [address], [place], [address], [place] [facility] [employer] 3 11:08:33 Date Recorded Body height Body weight Heart rate Respiratory rate Body temperature Oxygen saturation Oxygen saturation in Arterial blood by Pulse oximetry Systolic blood pressure Diastolic blood pressure Provider Name and Address Organization Details Last Updated DateTime 3 167.64 cm 72473.5 4 g 72 /min 18 /min 97.1 [degF] 96 % 96 % 115 mm[Hg] 68 mm[Hg] Maryjane Glover NP [address], [address], [place], [address], [facility] 3 13:10:32 Date Recorded Body height Body mass index (BMI) Body weight Heart rate Systolic blood pressure Diastolic blood pressure Provider Name and Address Organization Details Last Updated DateTime 3 167.64 cm 17.3 kg/m2 35663.3 8 g 74 /min 133 mm[Hg] 85 mm[Hg] Dilia Gonzalez [address], [address], [place], [address], [facility] 3 13:13:45 Date Recorded Body height Body weight Heart rate Respiratory rate Body temperature Oxygen saturation Oxygen saturation in Arterial blood by Pulse oximetry Systolic blood pressure Diastolic blood pressure Provider Name and Address Organization Details Last Updated DateTime 4 167.64 cm 82739.5 4 g 88 /min 18 /min 97.6 [degF] 96 % 96 % 133 mm[Hg] 85 mm[Hg] Maryjane Glover NP [address], [address], [place], [address], [facility] 4 19:10:48 Date Recorded Body height Heart rate Respiratory rate Body temperature Oxygen saturation Oxygen saturation in Arterial blood by Pulse oximetry Systolic blood pressure Diastolic blood pressure Provider Name and Address Organization Details Last Updated DateTime 4 167.64 cm 84 /min 18 /min 97.5 [degF] 98 % 98 % 133 mm[Hg] 85 mm[Hg] MAURO DUFFY NP [address], [address], [place], [address], [facility] 4 08:57:54 Social History Question Answer Notes LastModified by Organizat ion Details LastModified Time Tobacco Smoking Status Never Smoker MAURO DUFFY NP [address], [address], [place], [address], [facility] 01/17/2023 11:35:26 Do You Have An Advance Directive? Yes [email or web address] Information not available 01/17/2023 What Is Your Level Of Alcohol Consumption? None [email or web address] Information not available 01/17/2023 What Is Your Code Status? Full Code [email or web address] Information not available 01/17/2023 Where Do You Live? Apartment With Elevator, Family Near By, Helpful [email or web address] Information not available 01/17/2023 What Was The Date Of Your Most Recent Tobacco Screening? 08/03/2023 Information not available 08/03/2023 Do You Use Any Illicit Or Recreational Drugs? No Noted Past Use Cocaine Information not available 08/03/2023 Has Tobacco Cessation Counseling Been Provided? No [email or web address] Information not available 01/17/2023 Do You Or Have You Ever Used Any Other Forms Of Tobacco Or Nicotine? No [email or web address] Information not available 01/17/2023 Sex: Unknown Functional Status None recorded. Mental Status None recorded. Family History Relationship Description Onset Age of this Age Resolved Age Notes LastModified by Organization Details LastModified Time Mother Malignant tumor of lung [email or web address] Not available 2022 11:34:21 Medical History No medical history recorded. Immunizations Vaccine Type Date Status Note Provider Nam e and Address Organization Details Recorded Time COVID-19, mRNA, LNP-S, bivalent, PF, 50 mcg/0.5 mL or 25mcg/0.25 mL dose 2 [facility] 13:44:56 COVID-19, mRNA, LNP-S, bivalent, PF, 50 mcg/0.5 mL or 25mcg/0.25 mL dose 3 [facility] 13:45:39 Pneumococcal conjugate PCV20, polysaccharide [id number] conjugate, adjuvant, PF 3 completed Asia juarez [facility] 09/11/2023 13:46:16 Influenza, adjuvanted, quadrivalent, PF 3 completed Asia juarez [facility] 09/11/2023 13:46:36 Influenza, adjuvanted, quadrivalent, PF 2 completed Asia juarez [facility] 10/24/2023 13:13:32 Past Encounters Encounter ID Performer Location Encounter Start Date Encounter Closed Date Diagnosis/Indication Diagnosis SNOMED-CT Code Diagnosis ICD10 Code Diagnosis Note [id number] MAURO DUFFY NP [address] [address] 01/17/2023 11:16:19 01/22/2023 12:34:21 Pleural effusion 40994769 J90 and empyema, resp. failures/p L chest tube, intubation Clinically improved.M onitor VS, sats, LS, CP status closely for decompensa tion Pneumonia 995328896 J18. 9 Treated with IV zosyn in hosp.Clini lesly improved.A s above, monitlr VS, sats, LS, CP status closely Asthenia 32104084 R53.1 PT OT eval and tx. Moderate protein-calorie malnutrition (weight for age 60-74 percent of standard) 251281788 E44.0 Started supplement s in hosp.Refer to dumbwaiter operator here.Seen by in hosp, diet changed to chopped/ad vanced consistenc yOn reg. diet here, doing well. Refer to rehab to try to get bedside FEES testing Hypertensive disorder 38 256036 I10 On norvasc 5 mg dailyPropr anolol ER held in hosp., instructed to resume 03/09, unclear as to why held or if used for something else?Monio r VS, adjust meds prn Human immunodeficiency virus infection 85508829 B20 Continue biktarvy Mixed anxi ety and depressive disorder 551237204 F41.8 Continue home meds:clona zepam 1 mg daily? risperdal 2 mg HSremeron 60 mg HSMonitor mood, behaviors for changePsyc h eval prn Asthma 191087991 J45.90 9 Continue flovent bidMonitor resp. status for change Acute dermatitis 9378818 6 L30.9 bilat. groin, fungalstar t nystatin cream or powder bid x 14 days or until clearmonit or Migraine 84387268 G43.90 9 Continue home meds:Celeb monica 200 mg bidgabapen tin 600 mg tidibuprof en 800 mg q8 hr prnultram 50 daily prn? clonazepam 1 mg daily? risperdal 2 mg HS? propranolo l Er 120 mg daily - held in hosp - cont. to hold here, resume date of 03/09 [id number] Kenia Michaels MD [address] [address] 01/19/2023 07:22:18 01/22/2023 15:16:30 Pneumonia 759550529 J15.8 antibiotic s completeds /p empyema, respirator y failure, intubation will monitor Asthenia 57622899 R53.1 PT/OTwill monitor Human immunodeficiency virus infection 56805189 B20 Biktarvy 50-200-25 dailyfu I.D. Essential hypertension 83519036 I10 amlodipine 5 mg dailywill monitor Mixed anxi ety and depressive disorder 110581182 F41.8 gabapentin 600 mg tidmirtaza pine 60 mg at hsrisperid one 2 mg at hsclonazep am 1 mg dailywill monitor Gastroesop hageal reflux disease without esophagitis 795876021 K21.9 pantoprazo le 40 mg dailywill monitor Chronic pain 65258644 G8 9.29 gabapentin 600 mg tidhospita l discharge notes include:ce lecoxib 200 m bid, ibuprofen 800 mg q8h prn, tramadol 50 mg daily prnwill monitor and consider if needed [id number] Panchito Morales NP [facility] on [address] [place] [address] 06/30/2023 08:20:37 07/03/2023 11:44:52 Human immunodeficiency virus infection 10930561 B20 06/30/23mo nitorID consult as indicated- biktarvy (bictegrav ir, emtricitab ine & tenofovir alafenamid e) 50-200-25m g QD Hypertensive disorder 38 142708 I10 06/30/23mo nitorcards FU PRNavoid beta barb with HX of cocaine abuse-amlo dipine 5mg QD Mixed anxi ety and depressive disorder 556726737 F41.8 06/30/23mo nitorpsych consult PRN-risper idone 3mg QHS Viral hepatitis C 244498 07 B19.20 10/21/23mo nitor [id number] Leilani Levheim, MD [facility] on [address] [place] [address] 07/02/2023 17:00:01 07/12/2023 14:37:46 Human immunodeficiency virus infection 66675344 B20 Non-detect able on last checkConti nue biktarvy (bictegrav ir, emtricitab ine & tenofovir alafenamid e) 50-200-25m g QDF/U with ID as planned. Hypertensive disorder 38 031250 I10 BP good since here.Sam nue amlodipine 5 mg qdMonitor BP and labs. Mixed anxi ety and depressive disorder 861022951 F41.8 Mood stable.Con tinue risperidon e 3 mg qhs, mirtazapin e 30 mg qhs, and clonazepam 1 mg qd.Monitor mood.Psych consult prn. Viral hepatitis C 533604 07 B18.2 Unclear hx.LFTs WNL.F/U as outpt. Acute chest pain 0357196 01 R07.89 Per cardio not ACS.Monito r sxs.F/U with cardio prn. Non-trauma tic rhabdomyolysis 676117535 M62.82 CPK trended down inpt.No need to monitor further. Moderate p ersistent asthma 981457093 J45.40 No SOB or hypoxia, but with junky cough as above.Cont inue Advair 230/21 two puffs BID, Flovent 2 puffs BID, and albuterol/ budesonide 2 puffs q 6 hrs prn.Monito r resp status. Polysubstance abuse 4452 72137 F19.10 Most often cocaine, but sometimes other things.Con tinue SUDs counseling while here and encourage abstinence and outpt f/u. Cough 46654311 R05.8 Sounds junky, but pt says it feels like tickle in throat. Maybe post nasal drip.Lungs clear, but still could be early PNA.Will start Robitussin DM 10 ml q 4 hrs prn and get CXR tomorrow.M onitor resp status. Insomnia 356508453 G47.0 9 Will try melatonin 5 mg qhs.Monito r sleep patterns. [id number] MIGUEL BROWN [facility] on [address] [place] [address] 07/05/2023 08:16:20 07/12/2023 16:01:31 Mixed anxiety and depressive disorder 549985274 F41.8 07/05: his mood is stablecont inue:clona zepam 1 mg dailyrispe ridone 3 mg daily at bedtime.Mi rtazapine 30 mg at bedtime daily.tu tonin 5 mg at bedtime daily Cough 03337889 R05.8 07/05: non productive upper airway congested coughThere is no SOB. LS are clearCXR completed; no active pulmonary infiltrate s or pleural effusions seen.Erna ussin DM 10 ml q 4 hrs prn- will scheduled for a few days, does not look like he requested prn.Monito r resp status. Polysubstance abuse 4452 48532 F19.10 Most often cocaine, but sometimes other things.Con tinue SUDs counseling while here and encourage abstinence and outpt f/u. [id number] MIGUEL BROWN [facility] on [address] [place] [address] 07/06/2023 09:35:29 07/12/2023 16:16:45 Mixed anxiety and depressive disorder 004172815 F41.8 continue:c lonazepam 1 mg dailyrispe ridone 3 mg daily at bedtime.Mi rtazapine 30 mg at bedtime daily.tu tonin 5 mg at bedtime dailyfollo w up with outpatient PCP. Cough 84376860 R05.8 CXR on 07/03/23 negative for any acute process.Ro bitussin DM 10 ml q 4 hrs prnfollow up with outpatient PCP. Acute dermatitis 1190553 6 L30.9 continueny statin cream BID as needed until clearedfol low up with outpatient PCP. Asthma 986299445 J45.90 9 Advair 230/21 two puffs BID,Floven t 2 puffs BID, andalbuter ol/budeson kentrell 2 puffs q 6 hrs prn.follow up with outpatient PCP. Human immunodeficiency virus infection 61525825 B20 Continue biktarvy (bictegrav ir, emtricitab ine & tenofovir alafenamid e) 50-200-25m g QD Hypertensive disorder 38 511273 I10 Continue amlodipine 5 mg qdfollow up outpatient Insomnia 435972360 G47.0 9 melatonin 5 mg at bedtime Migraine 92812576 G43.90 9 Continue home meds: Celebrex 200 mg bid gabapentin 600 mg tid ibuprofen 800 mg q8 hr prn ultram 50 daily prn clonazepam 1 mg daily risperdal 3 mg HS follow up with PCP Viral hepatitis C 582780 B18.2 follow labs outpatient follow up with outpatient pcp. [id number] Maryjane Glover NP [facility] [address] [place] [address] 08/03/2023 12:58:35 08/08/2023 10:07:33 Human immunodeficiency virus infection 18854921 B20 ID consult prnbiktarv y (bictegrav ir, emtricitab ine & tenofovir alafenamid e) 50-200-25m g QD Asthenia 03584909 R53.1 PT/OT treat and evalwill monitor Essential hypertension 01903653 I10 amlodipine 5 mg dailywill monitor Mixed anxi ety and depressive disorder 240783929 F41.8 gabapentin 600 mg tidmirtaza pine 60 mg at hsrisperid one 3 mg at hsclonazep am 1 mg dailypsych prnwill monitor Gastroesop hageal reflux disease without esophagitis 835362767 K21.9 With recent workup in hosp and PEG placed.use G tube for feedings/m edswill monitor Chronic pain 38647771 G8 9.29 gabapentin 600 mg tidtramado l 50 mg prn dailymulti ple allergies notedwill monitor and consider if needed Polysubstance abuse 4452 96567 F19.10 Most often cocaine per hx with overdoses notedConti nue counseling while here and encourage abstinence and outpt f/u. Asthma 308614523 J45.90 9 advair 2 puff bidalbuter ol 2 puffs q 6 hours prn wheezingMo nitor resp. status for change Viral hepatitis C 622533 B18.2 fu with labscurren tly stable liver enzymesmon itor Moderate protein-calorie malnutrition (weight for age 60-74 percent of standard) 475292462 E44.0 now on PEG tube with feedings at 60cc/hrRef er to dumbwaiter operator here.Seen by in hosp, unclear why he has dysphagia and difficulty eating with workup including EGD at [facility] eval and treat here to see if he can take po intakemoni tor Anemia 081903964 D64.9 ferrous gluconate 324 dailymonit or cbc weekly Adult fail ure to thrive syndrome 887720420 R62.7 g tube feedings and meds through g tube at 60cc/hrfai lure to thrive with supplement s in [facility] to eval and treat, consider reintroduc ing foods when ableweight s weeklymoni tor Insomnia 573242781 G47.0 9 benedryl 25 mg qhsmonitor [id number] Leilani Romeo MD [address] [address] 08/06/2023 16:28:34 08/08/2023 11:16:44 Adult failure to thrive syndrome 271462263 R62.7 With marked wt. loss over past few months.Mehrdad barr Jevity 1.0 or 1.2 tanya/ml at 60 ml/hr.Stil l unable to swallow, unknown reason.Mehrdad barr [employer] interventi ons to hopefully enable him to eat again.Cait tor wts and labs. Moderate protein-calorie malnutrition (weight for age 60-74 percent of standard) 828144752 E44.0 As above. Human immunodeficiency virus infection 17225601 B20 Last labs show zero viral load.Sam nue Biktarvy (bictegrav ir, emtricitab ine & tenofovir alafenamid e) 50-200-25m g QDF/U with ID as planned. Asthenia 14254149 R53.1 Very deconditio armen.Needs PT/OT for strengthen ing, balance, gait training, safety and function.C ontinue fall precaution s.Monitor for safety. Essential hypertension 61267727 I10 BP running low since here, should improve as nutritiona l status improves.C ontinue amlodipine 5 mg qdMonitor BP and labs. Gastroesop hageal reflux disease without esophagitis 025094912 K21.9 On no meds.I wonder if starting a PPI may help with throat pain?Monit or Chronic pain 97218115 G8 9.29 No c/o tonight.Co ntinue gabapentin 600 mg TID and tramadol 50 mg qd prnMonitor sxs. Asthma 520053784 J45.30 Asthma meds transcribe d incorrectl y on admission here.Was not put on Advair, but rather only albuterol/ budesonide prn.Will restart Advair 230/21 mcg two puffs BIDMonitor resp. status Anemia 658009499 D64.89 Not currently anemic.Con tinue ferrous gluconate 324 mg qdMonitor labs Mixed anxi ety and depressive disorder 717637624 F41.8 Mood stable.Con tinue risperidon e 3 mg qhs, mirtazapin e 60 mg qhs, and clonazepam 1 mg qd.Monitor mood.Psych consult prn. Viral hepatitis C 608828 07 B18.2 Unclear hx.LFTs WNL.F/U as outpt. Polysubstance abuse 4452 04198 F19.10 Most often cocaine, but sometimes other things.Con momo counseling and encourage abstinence and outpt f/u. Dysphagia 98151415 R13.1 9 Unknown etiology.C ontinue G-tube feeding as above.Cons ider ENT consult. [id number] Maryjane Glover, LADAN [address] [address] 08/16/2023 12:26:03 08/22/2023 11:29:11 Adult failure to thrive syndrome 754813566 R62.7 With marked wt. loss over past few months.Con tinueJevit y 1.5 tanya/ml at 60 ml/hr. dumbwaiter operator following and will adjust as neededStil l unable to swallow, unknown reason.Con momo [employer] interventi ons to hopefully enable him to eat again.Cait tor wts and labs. Dysphagia 01836728 R13.1 9 Unknown etiology.C ontinue G-tube feeding as above.Cons ider ENT consult. Moderate protein-calorie malnutrition (weight for age 60-74 percent of standard) 752427722 E44.0 As above. Human immunodeficiency virus infection 39835545 B20 Last labs show zero viral load.Sam nueBiktarv y (bictegrav ir, emtricitab ine & tenofovir alafenamid e) 50-200-25m g QDF/U with ID as planned. Asthenia 31517360 R53.1 Very deconditio armen.Needs PT/OT for strengthen ing, balance, gait training, safety and function.C ontinue fall precaution s.Monitor for safety. Essential hypertension 70937820 I10 BP running low since here, should improve as nutritiona l status improves.a mlodipine 5 mg qdMonitor BP and labs. Gastroesop hageal reflux disease without esophagitis 866288235 K21.9 no meds.Monit or Chronic pain 14090575 G8 9.29 has mild headache todayConti nuegabapen tin 600 mg TIDtramado l 50 mg qd prnMonitor sxs. Asthma 819193465 J45.30 Asthma meds transcribe d incorrectl y on admission here.albut maddi/budes onide prn.Advair 230/21 mcg two puffs BIDMonitor resp. status Anemia 493651516 D64.89 Not currently anemic.juan carlos scales order cbc and bmp weekly v9qfwtbaz gluconate 324 mg qdMonitor labs Mixed anxi ety and depressive disorder 506918251 F41.8 Mood stable.ris peridone 3 mg qhsmirtaza pine 60 mg qhs,clonaz epam 1 mg qd.Monitor mood.Psych consult prn. Viral hepatitis C 995462 07 B18.2 Unclear hx.LFTs WNL.F/U as outpt. Polysubstance abuse 4452 98476 F19.10 Most often cocaine, but sometimes other things.Mehrdad barr counseling and encourage abstinence and outpt f/u. [id number] Maryjane Glover NP [address] [address] 08/22/2023 11:06:38 08/28/2023 14:23:57 Adult failure to thrive syndrome 504291988 R62.7 With marked wt. loss over past few months.Con tinueJevit y 1.2 tanya/ml at 67ml/hr. dumbwaiter operator following and will adjust as neededStil l unable to swallow, unknown reason.Mehrdad barr [employer] interventi ons to hopefully enable him to eat again.Cait tor wts and labs.08/22 dumbwaiter operator to assess if bolus feedings can be attempted for homefamily /pt needs g tube care/teach ing for ? dc homemonito r Asthenia 00259144 R53.1 Very deconditio armen, improving every week with therapyNee ds PT/OT for strengthen ing, balance, gait training, safety and function.C ontinue fall precaution s.Monitor for safety. Dysphagia 96865315 R13.1 9 Unknown etiology.C ontinue G-tube feeding as above.Cons ider ENT consult. Anemia 446860538 D64.89 Not currently anemic.juan carlos l order cbc and bmp weekly m0qdasmly gluconate 324 mg qdMonitor labs Moderate protein-calorie malnutrition (weight for age 60-74 percent of standard) 122797071 E44.0 As above. Human immunodeficiency virus infection 13888735 B20 ContinueBi ktarvy (bictegrav ir, emtricitab ine & tenofovir alafenamid e) 50-200-25m g QDF/U with ID as planned. Essential hypertension 68996151 I10 BP now improving as nutritiona l status improves.1 10s-130s /60scontam lodipine 5 mg qdMonitor BP and labs. Gastroesop hageal reflux disease without esophagitis [id number] K21.9 no meds.Monit or Chronic pain 35624751 G8 9.29 headache resolvedCo ntinuegaba pentin 600 mg TID, no pain todaytrama dol 50 mg qd prnMonitor sxs. Asthma 061242260 J45.30 Asthma meds transcribe d incorrectl y on admission here.albut maddi/budes onide prn.Advair 230/21 mcg two puffs BIDMonitor resp. status Mixed anxi ety and depressive disorder [id number] F41.8 Mood stable and ding wellrisper idone 3 mg qhsmirtaza pine 60 mg qhs,clonaz epam 1 mg qd.Monitor mood.Psych consult prn. [id number] Maryjane Glover NP [address] [address] 08/29/2023 08:14:48 08/30/2023 19:42:34 Adult failure to thrive syndrome [id number] R62.7 With marked wt. loss over past few months.Con tinueJevit y 1.2 tanya/ml at 67ml/hr. dumbwaiter operator following and will adjust as neededStil l unable to swallow, unknown reason.per speech eval: no eating or drinkingMo nitor wts and labs.08/22 dumbwaiter operator to assess if bolus feedings can be attempted for homefamily /pt needs g tube care/teach ing for ? dc homemonito r1/ awaiting dumbwaiter operator to calculate gtube feedings and start Asthenia 43398554 R53.1 Very deconditio armen, improving every week with therapyNee ds PT/OT for strengthen ing, balance, gait training, safety and function.C ontinue fall precaution s.Monitor for safety. Dysphagia 57206864 R13.1 9 Unknown etiology.C ontinue G-tube feeding as above.Cons ider ENT consult. Anemia 859334619 D64.89 Not currently anemic.juan carlos l order cbc and bmp prn, labs stableferr ous gluconate 324 mg qdMonitor labs Moderate protein-calorie malnutrition (weight for age 60-74 percent of standard) 387006245 E44.0 As above. Human immunodeficiency virus infection 24069946 B20 ContinueBi ktarvy (bictegrav ir, emtricitab ine & tenofovir alafenamid e) 50-200-25m g QDF/U with ID as planned. Essential hypertension 75076693 I10 BP now improving as nutritiona l status improves.1 conta mlodipine 5 mg qdMonitor BP and labs. Gastroesop hageal reflux disease without esophagitis 039705677 K21.9 no meds.Monit or Chronic pain 82859255 G8 9.29 headache resolvedCo ntinuegaba pentin 600 mg TID, no pain todaytrama dol 50 mg qd prnMonitor sxs. Asthma 665529444 J45.30 Asthma meds transcribe d incorrectl y on admission here.albut maddi/budes onide prn.Advair 230/21 mcg two puffs BIDMonitor resp. status Mixed anxi ety and depressive disorder 515037888 F41.8 Mood stable and ding wellrisper idone 3 mg qhsmirtaza pine 60 mg qhs,clonaz epam 1 mg qd.Monitor mood.Psych consult prn. Neck pain 72215373 M54.2 incidental neck pain, states slept on it wrongnsg giving tyl, tramadol and gabapentin reposition neckmonito r for relief [id number] Dilia SchwarzGino Hutchinson [address] [place] [address] 09/07/2023 05:15:43 09/13/2023 10:39:11 Adult failure to thrive syndrome 675859449 R62.7 With marked wt. loss over past few months.Con tinueJevit y 1.2 tanya/ml at 67ml/hr. dumbwaiter operator following and will adjust as neededStil l unable to swallow, unknown reason.Mehrdad barr [employer] interventi ons to hopefully enable him to eat again.Cait tor wts and labs.recei deborah education on gt feeds, SW working on VNA set up for [facility] GT site daily with NS and dry. apply 2x2 to sitemonito r Asthenia 23773951 R53.1 Very deconditio armen, improving every week with therapyNee ds PT/OT for strengthen ing, balance, gait training, safety and function.C ontinue fall precaution s.Monitor for safety. Dysphagia 28209071 R13.1 9 Unknown etiology.C ontinue G-tube feeding as above.Cons ider ENT consult. Anemia 366277158 D64.89 Not currently anemic.juan carlos l order cbc and bmp weekly k9ayecuhe gluconate 324 mg qdMonitor labs Moderate protein-calorie malnutrition (weight for age 60-74 percent of standard) 066125838 E44.0 As above. Human immunodeficiency virus infection 17031782 B20 ContinueBi ktarvy (bictegrav ir, emtricitab ine & tenofovir alafenamid e) 50-200-25m g QDF/U with ID as planned. Essential hypertension 02399994 I10 BP now improving as nutritiona l status improves.1 10s-130s /60scontam lodipine 5 mg qdMonitor BP and labs. Gastroesop hageal reflux disease without esophagitis 457222127 K21.9 no meds.Monit or Chronic pain 55647156 G8 9.29 headache resolvedCo ntinuegaba pentin 600 mg TID, no pain todaytrama dol 50 mg qd prnMonitor sxs. Asthma 067239618 J45.30 Asthma meds transcribe d incorrectl y on admission here.albut maddi/budes onide prn.Advair 230/21 mcg two puffs BIDMonitor resp. status Mixed anxi ety and depressive disorder 881027489 F41.8 Mood stable and ding wellrisper idone 3 mg qhsmirtaza pine 60 mg qhs,clonaz epam 1 mg qd.Monitor mood.Psych consult prn. [id number] Maryjane Glover, [facility] [address] [place] [address] 09/12/2023 18:08:08 09/14/2023 11:17:17 Adult failure to thrive syndrome 164180335 R62.7 With marked wt. loss over past [...] dry. apply 2x2 to sitemonito r Asthenia 85312522 R53.1 Very deconditio armen, improving every week with therapyNee ds PT/OT for strengthen ing, balance, gait training, safety and function.C ontinue fall precaution s.Monitor for safety. Dysphagia 95137503 R13.1 9 Unknown etiology.C ontinue G-tube bolus feeding as above.FEES test on Sundayne s cxr to rule out pna from foods and drinks in room despite recommenda tionConsid er ENT consult. Moderate protein-calorie malnutrition (weight for age 60-74 percent of standard) 329365479 E44.0 As above. Human immunodeficiency virus infection 15279513 B20 ContinueBi ktarvy (bictegrav ir, emtricitab ine & tenofovir alafenamid e) 50-200-25m g QDF/U with ID as planned. Essential hypertension 72098869 I10 BP now improving as nutritiona l status improves.1 10s-130s /60scontam lodipine 5 mg qdMonitor BP and labs. Asthma 311620502 J45.30 no wheezing noted on exam, stablealbu terol/bude sonide prn.Advair 230/21 mcg two puffs BIDMonitor resp. status Mixed anxi ety and depressive disorder 840443132 F41.8 Mood stable and ding wellrisper idone 3 mg qhsmirtaza pine 60 mg qhs,clonaz epam 1 mg qd.Monitor mood.Psych consult prn. [id number] [facility]UR[facility] DUFFY [facility] [facility] [address] 09/18/2023 08:57:08 09/25/2023 10:49:09 Adult failure to thrive syndrome 592113515 R62.7 With marked wt. loss over past few months due to difficulty swallowing .G tube placed 07/30/23 at [facility].Contin ue osmolite 1.2 tanya/ml 410 cc qid bolus tube feedings upon d/c home.Seen by [employer] - now on puree diet with thin liquids - may continue at homeContin ue to monitor weights and intake at home Asthenia 47865965 R53.1 Improved, meeting rehab goals for d/c home today with support of services.C ontinue fall precaution s.Monitor for safety as outpt. Dysphagia 71462902 R13.1 9 Unknown etiology.S ee above.[facility] w on pureed diet, thin liquidsMon itor intake, s/s aspiration as outpt. Moderate protein-calorie malnutrition (weight for age 60-74 percent of standard) 086312736 E44.0 As above. Human immunodeficiency virus infection 65062517 B20 ContinueBi ktarvy (bictegrav ir, emtricitab ine & tenofovir alafenamid e) 50-200-25m g QDF/U with ID as planned. Essential hypertension 81348978 I10 continue amlodipine 5 mg qdMonitor BP as outpt. Asthma 254841639 J45.30 no wheezing noted on exam, stablecont inue Advair 230/21 mcg two puffs BID and albuterol/ budesonide prn.Monito r resp. status as outpt. Mixed anxi ety and depressive disorder 251684436 F41.8 Mood stable and doing wellContin ue home medsrisper idone 3 mg qhsmirtaza pine 60 mg qhsclonaze david 1 mg qdMonitor mood, behaviors as outpt. Chronic pain 60577670 G8 9.29 continue gabapentin 600 mg tid, ultram 50 mg qd prnmonitor asoutpt. Anemia 370323853 D64.89 remains on daily FeMonitor CBC,s/s active bleeding Health Concerns Section Related Observation LastModified by Organization Detai ls LastModified Time None Recorded Concern Status LastModified by Organization Details LastModified Time None Recorded Advance Directives Directive Y: Payers Encounter Date Sequence Insurance Name Policy Number Policy Perry Covered Member ID Perry Member ID Guarantor Name 08/22/2023 1 [facility] - DOS ON OR AFTER 2022 - MEDICARE [place]AGE [place]MED[place] REPLACEMENT/ADV ANTAGE - PPO) [facility] [id number] [facility] 08/29/2023 1 [facility] - DOS ON OR AFTER 2022 - [place]/ADV ANTAGE - PPO) [facility] [id number] [facility] 09/07/2023 1 [employer] - DOS ON OR AFTER 2022 - [place]/ADV ANTAGE - PPO) [facility] [id number] [facility] 09/12/2023 1 [employer] - DOS ON OR AFTER 2022 - [place]/ADV ANTAGE - PPO) [facility] [id number] [facility] 09/18/2023 1 [employer] - DOS ON OR AFTER 2022 - [place]AC[place]/ADV ANTAGE - PPO) [facility] [id number] [facility] Notes Date Note Type Note Provider [...] other concerns. Note: He was admitted to [facility] for similar concerns earlier this [...] code signed 01/17/23 Maryjane Glover NP [address], [address], [place], [address], [facility] [employer] 08/22/2023 11:24:08 08/29/2023 text/html Patient seen for an 30 routine rounding visit. Past medical history significant for HIV, history of hep C, depression, asthma, history lung abscess 2020, fall, several overdoses noted in hx. dysphagia seen for difficulty swallowing ultimately diagnosed with failure to thrive and PEG tube placed. Benjamin was admitted to [facility] for difficulty swallowing and underwent [...] from hospital to rehab. While here at [facility]: Pt is 107.6 lbs and this [...] disconnect his feedings without difficulty here. Awaiting dumbwaiter operator to calculate bolus feedings and start them [...] code signed 01/17/23 Maryjane Glover NP [address], [address], [place], [address], [facility] [employer] 08/29/2023 13:39:07 09/07/2023 text/html Patient seen for [...] other concerns. Note: He was admitted to [facility] for similar concerns earlier this [...] code signed 01/17/23 Dilia Michelle lloyd [address], [address], [place], [address], [employer] 09/07/2023 13:21:25 09/12/2023 text/html Patient seen for [...] code signed 01/17/23 Maryjane Glover NP [address], [address], [place], [address], [employer] 09/12/2023 19:33:00 09/18/2023 text/html Benjamin is seen t heidy for discharge. He is going home today with support of services. He is a 58 yo man admitted to [facility] 08/02/23 from [facility] for continued care and rehab after a hospitalization related to malnutrition and FTT.He presented to [facility] 07/27 reporting throat pain and the inability to swallow.Swallowing issues problematic prior to this presentation, had EGD with Dr. Dodson 07/17, results c/w mild candidiasis normal stomach and duodenum. He was also seen by [employer], diet changed to NND1 and nectar thick liquid. Due to ongoing swallowing issues at home, he returned to [facility].A g-tube was placed on 07/30, cause of dysphagia unclear. Kept NPO, and sent here for rehab. While here, Benjamin has done well.Worked with PT/OT, meeting goals for d/c home.Also worked with [employer] SPECIAL[employer] and dumbwaiter operator - now tolerating puree diet with thin [...] also, possibly inadvertently). MAURO DUFFY NP [address], [address], [place], [address], [facility] 09/18/2023 09:47:21
--- OUTSIDE RECORDS SUMMARY | 2024-11-25 11:09 | XMS_ITS | Patient Health Record ---
Demographics Address [address] [place] [address] Preferred Language es Marital Status Unknown Jain Affiliation Unknown Race White Ethnic Group Not or Lati no Author Organization [facility] Address [address] [place] [address] Care Team Providers Care Felt Washing Machine Tender Name Role Phone Terese Rivera Primary Care Provider Pepe Dangelo Unavailable [phone] Allergies Allergen (clinical drug ingredient) Drug/Non Drug [...] Status Risk Notes Problem Protein calorie malnutrition (464110493) Unspecified protein-calorie malnutrition (E46) Active confirmed Problem Anorexia (64010506) Anorexia (R63.0) Active confirmed Problem Dysphagia (94444259) Dysphagia (R13.10) Active confirmed Problem PEG (percutaneous endoscopic gastrostomy) adjustment/repla cement/removal (Z43.1) Active confirmed Vital Signs Blood pressure diastolic 00 mm Hg 10/09/2024 Height 66 in 10/09/2024 Blood pressure systolic 00 mm Hg 10/09/2024 Weight 147 lbs 10/09/2024 BMI 23.72 kg/m2 10/09/2024 Encounters Encounter Location Date Provider Diagnosis [facility] [address] [place] [address] 10/09/2024 Pepe Stephenson Dysphagia R13.10 ; Unspecified protein-calorie malnutrition E46 and PEG (percutaneous endoscopic gastrostomy) adjustment/replacement /removal Z43.1 [facility] [address] [place] [address] 10/26/2024 Pepe Stephenson [facility] [address] [place] [address] 12/14/2023 Pepe Stephenson Assessments Encounter Date Diagnosis [...] Once we have the results of the [facility] GI series from 10/2024 and see [...] 11:00:00 AM, [address], [address], [place], [address], Insurance Providers Payer Name Payer Address Payer Phone Subscriber Number Group Number Insured Name Patient Relationship to Insured Coverage Start Date Coverage End Date [facility] [address] Attn Claims HOSEA Solorzano [id number] [facility] Self - patient is the insured Medical (General) History Medical History History ICD Code Seizures Kidney stones Denies MA,DM,CVA,renal disease HIV infection since age 23-[address] e[address]-reports neg. hepatitis serologies GERD Mild asthma-Albuterol prn Anxiety Fibromyalgia Gtube placed in July of 2023 HX of DVT's and Pulmonary em boli--2023-sees Dr. Wray--started Eliquis in 06/2024 Surgical History Surgery Date(Month/Year) Hemorrhoidectomy 2003 Eye surgery as a child
--- OUTSIDE RECORDS SUMMARY | 2024-11-25 11:09 | XMS_ITS | Data Portability ---
Author Organization [facility] [place] in - [email or web address] Address [address] [place] [address] Care Team Providers Care Subway Train Driver Name Role Phone HIM [facility] OTHER [facility] OTHER [phone] Assessment No assessment recorded. Plan of Treatment [...] Not available Not available Not available 07/08/2024 [id number] RxNorm Not Available [facility] - production 4 [...] SNOMED-CT Code Diagnosis ICD10 Code Diagnosis Note 28434 ERLINDA HOLLIDAY MD Main - [facility] [address] [place] [address] 03/06/2024 16:50:44 03/07/2024 17:38:50 Lethargy 913300367 R53.83 Evaluation in the field was performed by my geographic information system analyst colleague. As noted above, I provided real-time [...] He is afebrile. Per discussion with the geographic information system analyst, the patient looked lethargic, walked with an [...] n. The patient was transferre d to [facility] for further evaluation and treatment. His PCP was informed of the transfer to the ED. Primary care, consider__ _ Dispositio n:[facility] Health Concerns Section Related Observation LastModified by Organization Jazzy ls LastModified Time None Recorded Concern Status LastModified by Organization Details LastModified Time None Recorded Advance Directives Directive None Recorded Payers Encounter Date Sequence Insurance Name Policy Number Policy Perry Covered Member ID Perry Member ID Guarantor Name 03/06/[address] [facility] - DOS ON OR AFTER 2022 - DUAL ELIGIBLE - [employer]DC OPTIONS AND ONE CARE (MEDICARE REPLACEMENT/ADV ANTAGE - HMO) Benjamin Juan David [id number] [facility] Juan David Notes Date Note Type [...] ................. ................. ................. ................. ................. ................. ..... Operations Lieutenant Note From Francisco Ley: Dispatched to above address for headache sore throat. On arrival patient met [facility] at the door. Initially patient denied calling for medical help or having any symptoms. [facility] confirmed patient name and address, after this [...] focus on current situation, poor affect, lethargic. [facility] contacted, spoke with Dr. Holliday, advised of patient complaints and exam findings. [facility] agreed further evaluation in the ER is necessary for this patient. Patient agreed to this. Patients neighbor who assists patient arrived to check on him. She reports this doesn't seem like his normal mentation but cannot be sure. 911 called. [facility] responded. Verbal report given to [facility] Operations Lieutenant. [facility] geographic information system analyst took over patient care. Vt8 clear. E[facility]. ................. ................. ................. ................. ................. ................. ................. ................. ..... Disposition: Shahzad HOLLIDAY MD [address], [place], [address], [place]ERTHI BLOCK 03/06/2024 18:02:19
--- OUTSIDE RECORDS SUMMARY | 2024-11-25 11:09 | XMS_ITS | Data Portability ---
Author Organization LYNN WHITE MD [facility], Main Office Address [address] [place] [address] Assessment No assessment recorded. Plan of Treatment Reminders Order Date Submit Date Provider Last Modified By Organization Details Last Modified Time Details Appointments B20 FOLLOW UP 2024 10:20A Wilmer Street MD Not available Not available Not available RESEARCH FOLLOW UP 2024 10:45A Wilmer [address] MD Not available Not available Not available Lab None recorded . Referral None recorded . Procedures None recorded . Surgeries None recorded . Imaging electroc ardiogra m 2023 024 [email or web address] Main Office, [address] [place] [address], [address], 07/15/2024 15:47:38 Medication Orders clotrima zole 10 mg klaudia 2024 025 [id number], [address] [place], [address], 10/21/2024 14:29:45 Biktarvy 50 mg-200 mg-25 mg tablet 2024 025 [facility], [address] [place], [address], 10/21/2024 14:30:45 voricona zole 200 mg/5 mL (40 mg/mL) oral suspensi on 2023 024 [facility], [address] [place], [address], 05/20/2024 11:43:08 Serostim 6 mg subcutan eous solution [address], [address], 05/20/2024 11:29:08 megestro l 625 mg/5 mL (125 mg/mL) oral suspensi on 2023 024 [facility], [address] [place], [address], 05/20/2024 11:30:41 fluconaz ole 10 mg/mL oral suspensi on 2023 024 [facility], [address] [place], [address], 04/18/2024 10:19:05 Serostim 6 mg subcutan eous solution [address] [place], [address], 04/18/2024 14:20:41 Patient TargetsNo targets recorded. Patient Instructions Encounter Date Encounter Id Patient Instructions Last Modified By Organization Details Last Modified Time 10/21/2024 [id number] Clotrimazole Oral Lozenge (CLOTRIMAZOLE LOZENGE - MUCOUS MEMBRANE (ORAL)) [email or web address] Not available 10/21/2024 14:29:44 Reason for Referral None Reported. Results Created Date Observation Date Name Description Value Unit Range Abnormal Flag Note LastModifiedBy Organization Detail LastModifiedTime 04/18/2004/18/2024 MISCE EDVIN OUS CULTU RE performing lab Perfor angel [facility] [address] [facility] [place] [address] Medic al Dire jj wu MD Not Available [facility] [address] [place], [address], 04/28/2024 10:31:16 04/18/20 24 04/21/2024 MISCE LLANE OUS CULTU RE miscellaneou s culture CANDID A GLABRA TA Not Available [facility] [address] [place], [address], 04/28/2024 10:31:16 04/18/20 24 04/18/2024 FUNGU S CULTU RE,OT HER performing lab Perfor angel Lab [facility], a membe r of [facility] [address] [place] [address] Medic al Direc jj wu MD Not Available [facility] [address] [place], [address], 04/28/2024 10:31:19 04/18/20 24 04/22/2024 FUNGU S CULTU RE,OT HER fungus culture,othe r CANDID A GLABRA TA Not Available [facility] [address] [place], [address], 04/28/2024 10:31:19 04/08/20 24 11/12/2023 elect rocar diogr am No observ ation record ed. [email or web address] Not Available 2023 15:34:46 06/18/20 24 06/04/2024 US, abdom en, compl ete No observ ation record ed. [email or web address] [facility], [place], [address], 06/18/2024 11:12:25 07/15/2007/15/2024 elect rocar diogr am No observ ation record ed. [email or web address] Main Office [address] [place] [address], [address], 07/15/2024 17:12:05 07/17/20 elect rocar diogr am No observ ation record ed. [email or web address] Main Office [address] [place] [address], [address], 07/17/2024 14:15:04 Result Notes None recorded. Problems Name Problem SNOMED Code Status Onset Date Resolution Date Notes Provider Name and Address Organization Details Recorded Time Asthma 597611237 Active 2006 Asthma; snomeddesc ription: Asthma; Report Immunity to Registry: Yes; Asthma; Report Immunity to Registry: Yes; ReasonDate : 10/13/2019 ; ; Start Date : 10/13/2019 Asthma; snomeddesc ription: Asthma; Report Immunity to Registry: Yes; Not Available [facility] 4 06:58:53 Male hypogonad ism 10753986 Active 2012 Male hypogonadi sm; snomeddesc ription: Male hypogonadi sm; Report Immunity to Registry: Yes; Not Available [facility] 4 06:58:53 Diarrhea 84890060 Active 2006 Diarrhea; snomeddesc ription: Diarrhea; Report Immunity to Registry: Yes; Diarrhea, unspecifie d; snomeddesc ription: Diarrhea; Report Immunity to Registry: Yes; Not Available [facility] 4 06:58:53 Substance abuse 97584378 Active 2006 Substance abuse; snomeddesc ription: Substance abuse; Report Immunity to Registry: Yes; Notes: opiate/suad jolene/benzo ; Not Available [facility] 4 06:58:53 Human immunodef iciency virus infection 80069888 Active 1991 Human immunodefi ciency virus [HIV] disease; snomeddesc ription: Human immunodefi ciency virus infection; Report Immunity to Registry: Yes; Human immunodefi ciency virus infection; snomeddesc ription: Human immunodefi ciency virus infection; Report Immunity to Registry: Yes; Not Available [facility] 4 06:58:53 Steatosis of liver 781335208 Active 2006 Steatosis of liver; snomeddesc ription: Steatosis of liver; Report Immunity to Registry: Yes; Notes: u/s 2021; Fatty (change of) liver, not elsewhere classified ; snomeddesc ription: Steatosis of liver; Report Immunity to Registry: Yes; Notes: u/s 2021; Not Available [facility] 4 06:58:53 Herpesvir us infection 80390959 Active 2009 Herpesvira l infection, unspecifie d; snomeddesc ription: Herpes simplex; Report Immunity to Registry: Yes; Notes: HSV 1 pos serology; HSV 2 neg serology; Not Available [facility] 4 06:58:53 Fibromyos itis 13823989 Active 2006 Myalgia and myositis, unspecifie d; snomeddesc ription: Fibromyalg ia; Report Immunity to Registry: Yes; Notes: Chronic pain multiple/c hronic back pain; Not Available [facility] 4 06:58:53 Herpes simplex 62033101 Active 2009 Herpes simplex; snomeddesc ription: Herpes simplex; Report Immunity to Registry: Yes; Notes: HSV 1 pos serology; HSV 2 neg serology; Not Available [facility] 4 06:58:54 Kidney stone 24307897 Active 2001 Calculus of kidney; snomeddesc ription: Kidney stone; Report Immunity to Registry: Yes; Kidney stone; snomeddesc ription: Kidney stone; Report Immunity to Registry: Yes; Not Available [facility] 4 06:58:54 History of calculus of kidney 219823317 Active 2001 History of calculus of kidney; snomeddesc ription: History of calculus of kidney; Report Immunity to Registry: Yes; Not Available [facility] 4 06:58:54 Type B viral hepatitis 74799872 Active 2006 Type B viral hepatitis; snomeddesc ription: Type B viral hepatitis; Report Immunity to Registry: Yes; Notes: core ab pos; s ag neg; s ab neg HBV vL nondetecte d 2016; 2017; Not Available [facility] 4 06:58:54 Hyperplas ia of prostate 008856851 Active 2014 Hyperplasi a of prostate, unspecifie d, without urinary obstructio n and other lower urinary symptoms (LUTS); snomeddesc ription: Hyperplasi a of prostate; Report Immunity to Registry: Yes; Hyperplas ia of prostate; snomeddesc ription: Hyperplasi a of prostate; Report Immunity to Registry: Yes; Not Available [facility] 4 06:58:54 Anxiety 10892488 Active 1996 Anxiety; snomeddesc ription: Anxiety; Report Immunity to Registry: Yes; Not Available [facility] 4 06:58:54 Testicula r hypofunct ion 826114414 Active 2012 Other testicular hypofuncti on; snomeddesc ription: Male hypogonadi sm; Report Immunity to Registry: Yes; Not Available [facility] 4 06:58:54 Seasonal allergic rhinitis 590951083 Active 2012 Other seasonal allergic rhinitis; snomeddesc ription: Seasonal allergy; Report Immunity to Registry: Yes; Notes: hx nasal congestion ; Not Available [facility] 4 06:58:54 Onychomyc osis due to dermatoph yte 873365424 Active 2017 Tinea unguium; snomeddesc ription: Onychomyco sis; Report Immunity to Registry: Yes; Notes: feet digits; Not Available [facility] 4 06:58:55 Sleep apnea 29700822 Active 1999 Sleep apnea; snomeddesc ription: Sleep apnea; Report Immunity to Registry: Yes; Unspecifi ed sleep apnea; snomeddesc ription: Sleep apnea; Report Immunity to Registry: Yes; Not Available [facility] 4 06:58:55 Psychoact marj substance abuse 54873140 Active 2006 Other psychoacti ve substance abuse, uncomplica lucho; snomeddesc ription: Substance abuse; Report Immunity to Registry: Yes; Notes: opiate/suad jolene/benzo ; Not Available [facility] 4 06:58:55 Viral hepatitis B without hepatic coma 229957928 Active 2006 Unspecifie d viral hepatitis B without hepatic coma; snomeddesc ription: Type B viral hepatitis; Report Immunity to Registry: Yes; Notes: core ab pos; s ag neg; s ab neg HBV vL nondetecte d 2016; 2017; Not Available [facility] 4 06:58:55 Blood chemistry outside reference range 332470009 Active 2012 Other specified abnormal findings of blood chemistry; snomeddesc ription: Decreased testostero ne level; Report Immunity to Registry: Yes; Notes: hypogoandi sm; Not Available [facility] 4 06:58:55 Arthritis 3885939 Active 1998 Arthritis; snomeddesc ription: Arthritis; Report Immunity to Registry: Yes; Notes: Osteoatrth ris multiple; Not Available [facility] 4 06:58:55 History of urinary stone 800294943 Active 2001 Personal history of urinary calculi; snomeddesc ription: History of calculus of kidney; Report Immunity to Registry: Yes; Not Available [facility] 4 06:58:56 Fibromyal mika 454524046 Active 2006 Fibromyalg ia; snomeddesc ription: Fibromyalg ia; Report Immunity to Registry: Yes; Notes: Chronic pain multiple/c hronic back pain; Not Available [facility] 4 06:58:56 Lyme disease 05237587 Active 2017 Lyme disease; Report Immunity to Registry: Yes; Notes: tx cefuroxime x14 d (hx all Doxy); Not Available [facility] 4 06:58:56 Headache 40638929 Active 2008 Headache; snomeddesc ription: Headache; Report Immunity to Registry: Yes; Notes: migraine; Headache; snomeddesc ription: Headache; Report Immunity to Registry: Yes; Notes: migraine; Not Available [facility] 4 06:58:56 Hypertens marj disorder 85840287 Active 2017 Hypertensi ve disorder; snomeddesc ription: Hypertensi ve disorder; Report Immunity to Registry: Yes; Not Available [facility] 4 06:58:56 Arthropat hy 836602582 Active 1998 Arthropath y, unspecifie d, site unspecifie d; snomeddesc ription: Arthritis; Report Immunity to Registry: Yes; Notes: Osteoatrth ris multiple; Not Available [facility] 4 06:58:56 Essential hypertens ion 57164966 Active 2017 Essential (primary) hypertensi on; snomeddesc ription: Hypertensi ve disorder; Report Immunity to Registry: Yes; Not Available [facility] 4 06:58:57 Testoster one level below reference range 664260920 Active 2012 Decreased testostero ne level; snomeddesc ription: Decreased testostero ne level; Report Immunity to Registry: Yes; Notes: hypogoandi sm; Not Available [facility] 4 06:58:57 Insomnia 961831668 Active 1996 Insomnia; Report Immunity to Registry: Yes; Not Available [facility] 4 06:58:57 Anxiety state 421758426 Active 1996 Anxiety state, unspecifie d; snomeddesc ription: Anxiety; Report Immunity to Registry: Yes; Not Available [facility] 4 06:58:57 Onychomyc osis 816525659 Active 2017 Onychomyco sis; snomeddesc ription: Onychomyco sis; Report Immunity to Registry: Yes; Notes: feet digits; Not Available [facility] 4 06:58:57 Chronic hepatitis C 508076207 Active 2006 Chronic hepatitis C without mention of hepatic coma; snomeddesc ription: Chronic hepatitis C; Report Immunity to Registry: Yes; Notes: F0 2011; CC IL28; g1a EOT 06/21/14 s/p 24 weeks tx Ribapak 1200mg po qd and Sovaldi 24 weeks SVR 4/15 HCV VL neg 2015;2017; 12/2021 F2 ; Chronic hepatitis C; snomeddesc ription: Chronic hepatitis C; Report Immunity to Registry: Yes; Notes: F0 2011; CC IL28; g1a EOT 1012/14 s/p 24 weeks tx Ribapak 1200mg po qd and Sovaldi 24 weeks SVR 4/15 HCV VL neg 2015;2017; 12/2021 F2 ; Not Available [facility] 4 06:58:57 Depressiv e disorder 98377954 Active 1996 Depressive disorder, not elsewhere classified ; snomeddesc ription: Depressive disorder; Report Immunity to Registry: Yes; Depressiv e disorder; snomeddesc ription: Depressive disorder; Report Immunity to Registry: Yes; Not Available [facility] 4 06:58:58 Seasonal allergy 992510544 Active 2012 Seasonal allergy; snomeddesc ription: Seasonal allergy; Report Immunity to Registry: Yes; Notes: hx nasal congestion ; Not Available [facility] 4 06:58:58 Loss of appetite 43529192 Active 2012 Anorexia; snomeddesc ription: Loss of appetite; Report Immunity to Registry: Yes; Loss of appetite; snomeddesc ription: Loss of appetite; Report Immunity to Registry: Yes; Not Available [facility] 4 06:58:58 Seizure 45242194 Active 2000 Seizure; snomeddesc ription: Seizure; Report [...] Report Immunity to Registry: Yes; Not Available [facility] 4 06:58:58 Problem Notes None recorded. Procedures Surgical History None recorded. Imaging Results Imaging Date Name Status LastModified by Organization Details LastModified Time 11/12/2023 electrocardiogram completed [email or web address] Informa tion not available 04/08/2024 15:34:46 06/04/2024 US, abdomen, complete completed [email or web address] [place], [address], 06/18/2024 11:12:25 07/15/2024 electrocardiogram completed [email or web address] Main Of [address], [address], 07/15/2024 17:12:05 07/17/2024 electrocardiogram completed [email or web address] Main Of [address], [address], 07/17/2024 14:15:04 Procedure Notes None recorded. Medical Equipment None Reported. Allergies Allergen ID Allergen Name Allergen Category Reaction Reaction Severity Criticality Documentation Date Start Date Code Code System Note Provider Name and Address Organization Details Recorded Time 714 Reglan medicatio n Not available Not available Not available 10/31/20232012 9230 RxNorm Comme nt: adver se_ev ent_t ype: 32814 8002; ; Not Available [facility] 4 06:50:47 715 Motrin medicatio n Not available Not available Not available 10/31/2023201248 8 RxNorm Comme nt: adver se_ev ent_t ype: 60298 8002; ; Not Available [facility] 4 06:50:47 716 doxycycli ne Not available Not available Not available Not available 10/31/20232017 3640 RxNorm Comme nt: adver se_ev ent_t ype: 15850 8002; ; Not Available [facility] 4 06:50:47 Medications Name Sig Start Date Stop Date Status Note LastModified by Organization Details LastModified Time multivita min tablet Multiple Vitamins Quantity : 30; 3 refill(s ) 12/01 completed Frequenc y: qd; VACCINE_ IND: no; SU_FULL_ NAME: Cheryl aPlomo yordy; Not Available Not Available Not Available [...] HORAS CUANDO SEA NECESARI O PARA EL DOLOR-VA LD POR 10 D active Not Available [...] Available Liquid Nutrition oral 0 Quantity : 17566; Duration : 30; 0 refill(s ) 09/30 [...] Available Not Available No t Available Luis Sahu-C-Y-W-1 35-Dip (PF) 10 mcg-5 mcg/0.5 mL IM [...] Not Available Not Available Not Available Afluria 5430-4843 45 mcg (15 mcg x 3)/0.5 mL [...] Pneumoco ccal conjugat e PCV20, polysacc haride IPL015 conjugat e, adjuvant , PF; Not Available Not Available Not Available Vitals Date Recorded Body height Heart rate Body temperature Respiratory rate Body mass index (BMI) Body weight Systolic blood pressure Diastolic blood pressure Provider Name and Address Organization Details Last Updated DateTime 4 162.56 cm 82 /min 97.7 [degF] 18 /min 21.3 kg/m2 29243.4 5 g 123 mm[Hg] 85 mm[Hg] Jerome PENDLETON 4 14:10:17 Date Recorded Body height Heart rate Respiratory rate Body temperature Body mass index (BMI) Body weight Systolic blood pressure Diastolic blood pressure Provider Name and Address Organization Details Last Updated DateTime 4 162.56 cm 109 /min 20 /min 97.2 [degF] 21.1 kg/m2 66880.8 6 g 111 mm[Hg] 90 mm[Hg] Jerome [address]RE[address] MD [facility] 4 12:07:11 Date Recorded Body height Heart rate Respiratory rate Body temperature Body mass index (BMI) Body weight Systolic blood pressure Diastolic blood pressure Provider Name and Address Organization Details Last Updated DateTime 4 162.56 cm 89 /min 16 /min 98 [degF] 20.6 kg/m2 87497.0 8 g 123 mm[Hg] 90 mm[Hg] Jerome STRE[address] MD [facility] 4 14:28:38 Date Recorded Body height Provider Name an d Address Organization Details Last Updated DateTime 07/15/[address] MD [facility] 07/15/2024 15:22:29 Date Recorded Body temperature Body mass index (BMI) Body weight Respiratory rate Heart rate Systolic blood pressure Diastolic blood pressure Provider Name and Address Organization Details Last Updated DateTime 4 98.7 [degF] 20.6 kg/m2 13638.0 8 g 20 /min 87 /min 120 mm[Hg] 80 mm[Hg] Cheryl Srteet MD [address] [place] [address], [phone], [address] MD [facility] 4 15:46:02 Date Recorded Heart rate Body temperature Body weight Systolic blood pressure Diastolic blood pressure Provider Name and Address Organization Details Last Updated DateTime 10/21/2024 98 /min 98.2 [degF] 02316.2 6 g 118 mm[Hg] 97 mm[Hg] Lexis STRE[address] MD [facility] 5 12:04:23 Social History None recorded. Functional Status None recorded. Mental Status None recorded. Family History Nothing Reported Notes:High cholesterol, Resp onse Property: Yes; , Cancer, other unspecified, Response Property: Yes; , Diabetes, Response Property: Yes; Medical History No medical history recorded. Immunizations Vaccine Type Date Status Note Provider Nam e and Address Organization Details Recorded Time Meningococcal MCV4O 9 completed Not Available [facility] 10/31/2023 06:54:49 zoster live 9 completed Not Available [facility] 10/31/2023 06:54:50 Influenza, split virus, quadrivalent, preservative 9 completed Not Available [facility] 10/31/2023 06:54:50 Influenza, split virus, quadrivalent, preservative 8 completed Not Available [facility] 10/31/2023 06:54:50 Influenza, split virus, quadrivalent, preservative 0 completed Not Available [facility] 10/31/2023 06:54:50 Past Encounters Encounter ID Performer Location Encounter Start Date Encounter Closed Date Diagnosis/Indication Diagnosis SNOMED-CT Code Diagnosis ICD10 Code Diagnosis Note [id number] Krista Gray Main Office [address] [place] [address] 05/25/2023 09:48:40 06/27/2023 09:16:16 Human immunodeficiency virus infection 06762854 B20 HIV. Continue Biktarvy 1 tab po [...] /Tivicay.. safe sex. plan of care reviewed [address] MD Main Office [address] [place] [address] 08/24/2023 09:33:00 08/24/2023 10:46:09 Human immunodeficiency virus infection 95821618 B20 HIV. Continue Biktarvy 1 tab po [...] /Tivicay.s afe sex.labs Septemberlan of care reviewed [address] MD Main Office [address] [place] [phone] 11/12/2023 11:34:42 11/16/2023 15:00:47 Human immunodeficiency virus infection 41087337 B20 HIV.Contin ue Biktarvy 1 tab po qd.U=Upt aware of PreP availabili ty.condom use.plan of care reviewed Adult [facility] th examination 764377288 Z00.[address] MD Main Office [address] [place] [phone] 11/21/2023 10:59:43 11/23/2023 14:55:[address] MD Main Office [address] [place] [address] 01/14/2024 09:27:39 01/16/2024 13:51:[address] MD Main Office [address] [place] [address] 01/16/2024 10:24:39 01/16/2024 11:50:10 Human immunodeficiency virus infection 37456347 B20 HIV.Contin ue Biktarvy 1 tab po qd.U=Upt aware of PreP availabili ty.condom use.labs todayplan of care reviewed Candidiasis of mouth 797 22079 B37.0 nystatin 5cc po qid x 14 days. swish and spit.call with any side effects.ba cterial/fu ngal swab obtained. 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 [address] MD Main Office [address] [place] [address] 02/14/2024 12:00:04 02/14/2024 12:24:19 Human immunodeficiency virus infection 08651556 B20 HIV.Contin ue Biktarvy 1 tab po qd.U=Upt aware of PreP availabili ty.DoxyPEP reviewedco ndom use.labs todayplan of care reviewed Methicilli n resistant Staphylococcus aureus infection 902378310 A49.02 swab culture 01/2024 Candidiasi s of the esophagus 32423460 B37.81 sandy glabratafl uconazole 100mg po qd x 14 dayscall with any side effects. Weight loss 97525386 R63 .4 contributi ng factor sandy, MRSA, HIV among othermight benefit from Serostim.w ill review with himG tube [address] MD Main Office [address] [place] [address] 02/21/2024 11:08:05 02/21/2024 12:09:56 Human immunodeficiency virus infection 26544080 B20 HIV.Contin ue Biktarvy 1 tab po qd.complia nce reviewedU= Upt aware of PreP availabili ty.DoxyPEP reviewedco ndom use.labs todayplan of care reviewed Candidiasi s of the esophagus 78588688 B37.81 sandy glabratato complete fluconazol e 100mg po bid x 14 days: (10mg/ml) 10ml by G tube bidcall with any side effects. Methicilli n resistant Staphylococcus aureus infection 848177252 A49.02 swab culture urr ently on Bactrim oral suspension (200mg- 40mg/5ml) since 02/15-20ml q 12 hrs G tube x 10 days Cachexia a ssociated with AIDS 037801773 B20 R64 weight loss. frail. progressin g.contribu ting factor sandy, MRSA, HIV among other. G tubeSerost im 6mg sq qd will be prescribed with the goal of helping w weight gain, increase muscle mass gain, and increase enduranceh e has visiting nurse who could assist with daily injections . [address] MD Main Office [address] [place] [address] 02/25/2024 10:24:53 02/25/2024 11:09:27 Human immunodeficiency virus infection 78007078 B20 HIV.Contin ue Biktarvy 1 tab po qd.complia nce reviewedU= Ucondom use.labs todayplan of care reviewed Candidiasi s of the esophagus B37.81 sandy glabratawi ll continue fluconazol e 200 mg po qd x 14 days: (10mg/ml) 10ml by G tube QD;will on next appointmen t for further tx va suppressio n tx.call with any side effects. Cachexia a ssociated with AIDS 000992897 B20 R64 weight loss. frail. progressin g.approved Serostim 6mg sq qd; awaiting delivery to the office. will be prescribed with the goal of helping w weight gain, increase muscle mass gain, and increase enduranceh e has visiting nurse who could assist with daily injections .ensure tidmegace 625 mg qd. Methicilli n resistant Staphylococcus aureus infection 923192865 A49.02 swab culture 01/2024will complete 10 days of Bactrim oral suspension (200mg- 40mg/5ml) since 02/15-20ml q 12 hrs G tube on 02/27/[address] MD Main Office [address] [facility] [place] [address] 03/14/2024 10:24:00 03/14/2024 10:29:25 Cachexia associated with AIDS 893228918 R64 B20 gained 2 pounds. probably improved sandy esophagiti s 2nd to inhaled steroids.S Tart Serostim 6mg s/c qd abdomen. first dose administer ed today. Tolerated well; goalis to increase weight, endurance and muscle massHe will have [employer] and nurse help with daily injections .potential side effects reviewed.t o call with any concernshe will picker machine operator Megace today, and start it as well(G tube) qd to increase apetitte Human immunodeficiency virus infection 00766295 B20 HIV.Contin ue Biktarvy 1 tab po qd.complia nce reviewed Candidiasi s of the esophagus B37.81 sandy glabratawi ll continue 2 more weeks of fluconazol e 200 mg po qd x 14 days: (10mg/ml) 10ml by G tube QD;might benefit from qw suppressio n tx.call with any side effects. [address] MD Main Office 57 [facility] [place] [address] 04/18/2024 09:52:00 04/18/2024 11:19:01 Cachexia associated with AIDS 364996539 R64 B20 124 lbs. gained weightcont inue Serostim 6mg s/c qd abdomen. goalis to increase weight, endurance and muscle masscontin ue Megace G tube qdCNA and nurse helping with compliance and tx.potenti al side effects reviewed.t o call with any concerns Human immunodeficiency virus infection 81664446 B20 HIV.Contin ue Biktarvy 1 tab po qd.padmini hoffman reviewedla bs today Candidiasi s of the esophagus 62939574 B37.81 sandy glabratawi ll continue fluconazol e 200 (10ml) mg G tube qw for suppressio n tx.call with any side effects. Aspiration pneumonia 422 444602 J69.0 get discharge summaryon antibiotic ;eat standing or sitting; and not sleeping/[place] [address] MD Main Office 57 [place] [address] 05/20/2024 10:17:53 05/20/2024 12:44:49 Cachexia associated with AIDS 345071601 R64 B20 continue Serostim 6mg s/c qd abdomen. goal is to increase weight, endurance and muscle masscontin ue Megace G tube qd 5cc qdCNA and nurse helping with compliance and tx.potenti al side effects reviewed.t o call with any concerns Human immunodeficiency virus infection 99673845 B20 HIV.Contin ue Biktarvy 1 tab po qd.padmini hoffman reviewedla bs today Candidiasi s of the esophagus 87192837 B37.81 sandy glabrataho ld fluconazol e for nowSTART 1 tab po bid x 21 says for esophageal sandy glabrata.c all with any side effects. [address] MD Main Office 57 [place] [address] 06/18/2024 10:10:09 06/18/2024 11:12:33 Cachexia associated with AIDS 674656497 R64 B20 continue Serostim 6mg s/c qd abdomen. goal is to increase weight, endurance and muscle massCNA and nurse helping with compliance and tx.megace on holdpotent ial side effects reviewed.t o call with any concerns Human immunodeficiency virus infection 05170278 B20 HIV.Contin ue Biktarvy 1 tab po qd.padmini hoffman reviewedla bs today Inflammato ry disease of liver 641467496 K75.9 Suspect 2nd to concomitan t medication s. ongoingdo not re-start fluconazol e nor megacenega tive infectious and non-infect ious workupto call or ER if jaundice, abd pain, n/v/d marce huertas History of calculus of kidney 085281355 Z87.442 u/s 05/[address] scan 02/2024hydr ation Aspiration pneumonia 422 038592 J69.0 s/p aspiration on CT AngioNPO per instructio n given to him in hospital; nutrition by G tubes/p (ceftriaxo ne,Azithro ,Flagyl while in Hospital;d ischarged on azithro and cefpodoxim e x 3 days which he completed. leg elevationa void sedating meds as much as possible Deep venou s thrombosis of lower extremity 783007898 I82.409 left lower extremity doppler showed DVT of gastrocnem ius vein;on tx w w Eliquis bid . Pulmonary embolism [address] Angio was positive for Acute lobar PEs/p heparin; ongoing Eliquis bidmed list reviewed.n o drug use for years. not on maintenanc e tx.denies current ETOH use. [address] MD Main Office 57 [place] [address] 07/15/2024 15:10:10 07/15/2024 15:45:30 Cachexia associated with AIDS 597236490 R64 B20 continue Serostim 6mg s/c qd abdomen. goal is to increase weight, endurance and muscle masspotent ial side effects reviewed.t o call with any concerns Human immunodeficiency virus infection 04080354 B20 HIV.Contin ue Biktarvy 1 tab po qd.padmini hoffman reviewedla bs Candidiasi s of the esophagus 39946718 B37.81 on clotrimazo le. swish and spit qd Medication monitoring [address] MD Main Office 57 [place] [address] 10/21/2024 12:22:54 10/21/2024 16:48:51 Cachexia associated with AIDS 218467195 R64 B20 improvedco ntinue Serostim 6mg s/c qd abdomen. goal is to increase weight, endurance and muscle masspotent ial side effects reviewed.m ay start decreasing dose in 1-2 months if further weight gainon Boost protein shakesto call with any concerns Human immunodeficiency virus infection 74957571 B20 HIV.Contin ue Biktarvy 1 tab po qd.complia nce reviewedla bs Candidiasi s of the esophagus 02017168 B37.81 on clotrimazo le. swish and spit [...] & [place] ([place]ANT[place] - PPO) [facility] [id number] [facility] 05/20/2024 1 [employer] - DOS ON OR AFTER 2022 - MEDICARE ADVANTAGE [place] & [place] ([place] VANTAGE - PPO) [facility] [id number] [facility] 06/18/2024 1 [employer] - DOS ON OR AFTER 2022 - [place]AGE [place]ANT[place] - PPO) [facility] [id number] [facility] 07/15/2024 1 [employer] - DOS ON OR AFTER 2022 - [place]AGE [place]ANT[place] - PPO) [facility] [id number] [facility] 10/21/2024 1 [employer] - DOS ON OR AFTER 2022 - [place]IC[place]AGE [place] ([place]ANTAGE - PPO) [facility] [id number] [facility] Notes Date Note Type Note Provider [...] ETOh use.reports was Hospitalized 3 days at [facility] this week with pneumonia 04/15- 04/17. discharge summary not available at time of visit. reports use of antibiotic; he says he was drinking shake in his bed and choked on it. dsicharge summery to be obtained. feels well. no SOB. no cough03/2024 HIV VL nondetctedHIV VL nondetetcted01/2024 HIV VL nondetcetd;eGFR=76;AST /ALT wnl;11/2023 RC2=304; HIV VLnondetceted; no infections.01/2022 AL2=917; HIV VL nondetceted; eGFR>60; ALt/AST wnl; syphilis neg; GC/chlamydia neg Cheryl Street MD [address] [place] [address], [phone], [facility] [address] MD [facility] 04/18/2024 14:20:48 05/20/2024 text/html HIVOn Biktarvy [...] VL nondetetcted01/2024 HIV VL nondetcetd;eGFR=76;AST /ALT wnl;11/2023 CN5=631; HIV VLnondetceted; no infections.01/2022 MG0=173; HIV VL nondetceted; eGFR>60; ALt/AST wnl; syphilis neg; GC/chlamydia neg Cheryl Street MD [address] [place] [address], [phone], [facility] [address] MD [facility] 05/20/2024 12:17:47 06/18/2024 text/html HIVOn Biktarvy 1 tab po qd.reports daily compliance. denies missing dose.resolved thrush. hx recurrence. fluconazole and voriconazole on hold. Pt reports was hospitalized at [facility] 06/10/24-06/13/24 ( got to ER on [...] VL nondetetcted01/2024 HIV VL nondetcetd;eGFR=76;AST /ALT wnl;11/2023 FX9=053; HIV VLnondetceted; no infections.01/2022 QA8=811; HIV VL nondetceted; eGFR>60; ALt/AST wnl; syphilis neg; GC/chlamydia neg Cheryl Street MD [address] [place] [address], [phone], [address] MD [facility] 06/18/2024 18:19:56 07/15/2024 text/html HIVOn Biktarvy 1 tab po qd.reports daily compliance. denies missing dose.thrush on/off: recurrence. on clotrimazole daily .stable weight 120lbshe says he is eating more and apetitte has improvedfeels strongergetting serostim dailyno hospitalizations since he was last seenmed list reviewed.On Eliquis and enoxaparin. recent PE/DVT.VL nondetected03/2024 HIV VL nondetctedHIV VL nondetetcted01/2024 HIV VL nondetcetd;eGFR=76;AST /ALT wnl;11/2023 QQ8=301; HIV VLnondetceted; no infections. Cheryl Street MD [address] [place] [address], [phone], [address] MD [facility] 07/15/2024 15:47:48 10/21/2024 text/html HIVOn Biktarvy 1 [...] notify site start date and confirm medication. [address] PATROL in room with his consent. Cheryl Street MD [address] [place] [address], [phone], [facility] [address] MD [facility] 10/21/2024 14:34:28
--- OUTSIDE RECORDS SUMMARY | 2024-11-25 11:10 | XMS_ITS ---
Demographics Address [address] [place] [address] Preferred Language es Marital Status Unknown Nondenominational Affiliation Unknown Race White Ethnic Group Not or Lati no Author Organization [facility] Address [address] [place] [address] Care Team Providers Care Summer Internship Name Role Phone Terese Rivera Primary Care Provider Pepe Dangelo [phone] Encounters Encounter Location Date Provider Diagnosis [facility] [address] [place] [address] 10/26/2024 Pepe Stephenson Plan Of Treatment Next Appt Details Provider Name:Pepe Stephenson , 02/12/2025 11:00:00 AM, [address], [address], [place], [address], Progress Notes * DUFFY, VICKIEDOB:1965 (59 yo M)Acc No.[id number]:10/26/2024 Patient:?VICKIE DUFFY :1965???Age:59 Y???Sex:Male Address:[address], [place] [address] * * Date:?
--- OUTSIDE RECORDS SUMMARY | 2024-11-25 11:10 | XMS_ITS ---
Demographics Address [address] [facility] [address] [place] [address] Preferred Language es Marital Status Unknown Holiness Affiliation Unknown Race White Ethnic Group Not or Lati no Author Organization [facility] Address [address] [place] [address] Care Team Providers Care Deburrer Name Role Phone Terese Rivera Primary Care Provider Pepe Dangelo Unavailable [phone] Allergies Allergen (clinical drug ingredient) Drug/Non Drug [...] 10/09/2024 Encounters Encounter Location Date Provider Diagnosis [facility] [address] [place] [address] 10/09/2024 Pepe Stephenson Dysphagia R13.10 ; Unspecified protein-calorie malnutrition E46 and PEG (percutaneous endoscopic gastrostomy) adjustment/replacement /removal Z43.1 Assessments Encounter Date Diagnosis (ICD Code) Assessment Notes Treatment Notes Treatment Clinical Notes Section Notes 10/09/2024 Dysphagia (ICD-10 - R13.10) Once we have the results of the [facility] GI series from 10/2024 and see [...] we have the res ults of the [facility] GI series from 10/2024 and see [...] Name:Pepe Stephenson , 02/12/2025 11:00:00 AM, [address] [facility], [address], [place], [address], Progress Notes * VICKIE DFUFYDOB:1965 (59 yo M)Acc No.[id number]:10/09/2024 Progress Notes Patient:?VICKIE DUFFY Provider:?Pepe Stephenson MD :1965???Age:59 Y???Sex:Male Hansel e:10/09/2024 Address:[address] [place], [place] [id number] Pcp:Terese Keenan Subjective: * Chief Complaints: * ???Patient presents today fo r a PATIENT RECEIVED RECALL LETTER * HPI: ???incontinence:? I saw Vickie in the office today for evaluation of his previous history of dysphagia with associated weight loss and subsequent placement of a G-tube. He is accompanied by his CONTRACTING SPECIALIST, Good, who helped with interpreting. ?I last [...] DVTs and pulmonary emboli last Fall at [facility] and has been on Eliquis for that since early June of 2024. He is scheduled to see Dr. Wray for follow up next month. He is also scheduled for a barium swallow next month with the speech and swallowing department through [facility]. ?Vickie reports that he generally feels [...] past year??No,?Points?0,?Interpretation?Negative.?Miscellaneous:?Marital status: single. Occupation: Retired from [employer]--had worked their for 27 years. ???Nonsmoker; no [...] Codes:?G9711 PT W/ DX PAST HX TOTAL COLECTOMY/EOD9122J TOBACCO NON- [id number] BP SCR NOT PRFRM REC REASON NOS * Preventive Medicine:? ??Screenings:?Fall Risk Screening?Fall Risk Assessment:?No falls in the past year,?Screening:?No falls in the past year,?Assessment:?Not performed, no reason specified,?Plan of Care:?Not documented, no reason specified.? * Follow Up:?January or February for o ffice Gtube removal * * Sign off status: Completed true * Provider:?Pepe Stephenson MD Date:? 025 Generated for Darryl ng/Hannah/Javier on:?11/25/2024 11:09 AM EDT History and Physical Notes * HPI (History of Present Illness) Category Sub-Category Detail Notes Category Not es incontinence I saw Vickie in the office today for evaluation of his previous history of dysphagia with associated weight loss and subsequent placement of a G-tube. He is accompanied by his CONTRACTING SPECIALIST, Good, who helped with interpreting. I last [...] DVTs and pulmonary emboli last Fall at [facility] and has been on Eliquis for that since early June of 2024. He is scheduled to see Dr. Wray for follow up next month. He is also scheduled for a barium swallow next month with the speech and swallowing department through [facility]. Vickie reports that he generally feels [...]
--- OUTSIDE RECORDS SUMMARY | 2024-11-25 11:10 | XMS_ITS ---
Demographics Address [address] [place] [address] Preferred Language es Marital Status Unknown Hindu Affiliation Unknown Race White Ethnic Group Not or Lati no Author Organization [facility] Address [address] [place] [address] Care Team Providers Care Reversing Mill Roller Name Role Phone Terese Rivera Primary Care Provider Pepe Dangelo Unavailable [phone] REASON FOR VISIT Pt no show Encounters Encounter Location Date Provider Diagnosis [facility] [address] [place] [address] 12/14/2023 Pepe Stephenson Plan Of Treatment Next Appt Details Provider Name:Pepe Stephenson , 02/12/2025 11:00:00 AM, [address], [address], [place], [address], Progress Notes * VICKIE DUFFYDOB:1965 (58 yo M)Acc No.[id number]:12/14/2023 Patient:?VICKIE DUFFY :1965???Age:58 Y???Sex:Male Address:[address], [place], [address] * true * Date:? Generated for Vanesai berenice/Hannah/eTransmitting on:?11/25/2024 11:09 AM EDT
--- OUTSIDE RECORDS SUMMARY | 2024-11-25 11:10 | XMS_ITS | Clinical Summary ---
Author Organization [facility] Address [address] [place] [address] Care Team Providers Care Nuclear Reactor Technician Name Role Phone Zora Arce PA-C Primary Care Provider [phone] Source Comments PLEASE NOTE, if this patient [...] EC tabletIndications:H IV (human immunodeficiency virus infection) ([facility]) Take 1 Tab by mouth once [...] NUTRITION) liquidIndications:H IV (human immunodeficiency virus infection) ([facility]) Take 1 Can by mouth 3 [...] nasal sprayIndications:As thma, intermittent, uncomplicated Place 1 [place] into the nostril(s) as needed for congestion. [...] 01/27/2015 Generalized anxiety disorder 01/27/2015 Seizure disorder ([facility]) 01/27/2015 Major depressive disorder, r ecurrent, severe without psychotic features ([facility]) 01/27/2015 Overview (01/27/2015): Has therapist at [facility] HIV (human immunodeficiency virus infection) ( [facility]) 01/27/2015 Chronic back pain 01/27/2015 Hepatitis [...] Plan of Treatment [place] file [place] Subscriber Plan / Payer ( fective 2015-Present) Name:Benjamin Fall Relation to Subscriber:Self Name:Benjamin Fall Payer ID:[id number] Group ID:Not on file Type:Medicaid Address: [address] DENTAL Care Teams Nuclear Reactor Technician Relationship Specialty Start Date End Date Zora Arce PA-C [address] [place] [address] PCP - General 11/05/18
--- OUTSIDE RECORDS SUMMARY | 2024-11-25 11:10 | XMS_ITS ---
Author Organization [facility] Care Team Providers Care Rn Residential Name Role Phone Krista Teresa Unavailable Unavailable Ann Wild Unavailable Unavailable Fatmata Teran Unavailable Unavailable Vidal Rose Unavailable Unavailable Allergies and adverse reactions Code CodeSystem Substance Reaction Severity StartDate Concern Status Tylenol Unknown 02/15/2022 active 85935 RXNORM traMADol Unknown 02/15/2022 active Reglan Unknown 02/15/2022 active 5684 RXNORM Penicillin Unknown 02/15/2022 active Levaquin Unknown 02/15/2022 active 0240 RXNORM Codeine Unknown 02/15/2022 active Care Team Name Role Address Phone Organization Ambrosio Wild PCP [address] [facility] [address], [place], [address], [place] (Office): : [facility] 02/15/2022 - 03/09/2022 Krist[place], [address], [place] (Office): : [facility] 02/15/2022 - 03/09/2022 Fatmata Teran Attending Physician [address] [place] [address] [place] [address], [address], [place] (Office): [facility] 02/15/2022 - 03/09/2022 Vidal Rose Attending Physician [address], [place], [address], [place] (Office): : [facility] 02/15/2022 - 03/09/2022 Goals [...] Code Code System Date Dependence on Cane 296558675 SNOMED CT 3 Mental Status Section Date Assessment Total Score Description 03/09/2022 BIMS 15 cognitively int act CAM 0 No delirium ind icated PHQ-9 00 02/22/2022 BIMS 15 cognitively int act CAM 0 No delirium ind icated PHQ-9 07 mild depression Problems Problem # Description Date of onset Resolved Date Code CodeSystem Concern Status 1 DEPRESSION, UNSPECIFIED 02/15/[address] active 2 DIFFICULTY IN WALKING, NOT ELSEWHERE CLASSIFIED 02/15/[address] active 3 ENCOUNTER FOR OTHER ORTHOPEDIC AFTERCARE 02/15/[address] active 4 MUSCLE WEAKNESS (GENERALIZED) 02/15/[address] active 5 NONDISPLACED COMMINUTED FRACTURE OF SHAFT OF LEFT TIBIA, SEQUELA 02/15/[address] active 6 OTHER ABNORMALITIES OF GAIT AND MOBILITY 02/15/[address] active 7 PLEURODYNIA 02/15/[address] active 8 UNSPECIFIED ASTHMA, UNCOMPLICATED 02/15/[address] active 9 UNSPECIFIED FRACTURE OF SHAFT OF LEFT FIBULA, SUBSEQUENT ENCOUNTER FOR CLOSED FRACTURE WITH ROUTINE HEALING 02/15/[address] active 10 UNSPECIFIED VIRAL HEPATITIS C WITHOUT HEPATIC COMA 02/15/[address] active 11 UNSTEADINESS ON FEET 02/15/[address] active 12 WEAKNESS 02/15/[address] active Reason for Referral No Reasons for Referral Entered Social History Social History Observation Description Start Date End Date Code Code System Current Smoking Status Tobacco smoking consumption unknown 409606566 SNOMED CT Sex Assigned At Male 1965 91801-3 [facility] Vital Signs Code Code System Vitals Name Values and Units Timing Information 64939-1 [facility] Pain Level Value=0.0 03/09/2022 79671-8 [facility] Weight Snxup=825.0 Units=Lbs 9279-1 [facility] Respiratory Rate Value=16.0 Units=/m in 02/19/2022 8462-4 [facility] Blood Pressure-Diastolic Value=85 Un its=mmHg 02/19/2022 8480-6 [facility] Blood Pressure-Systolic Azwle=907 Un its=mmHg 02/19/2022 8310-5 [facility] Body Temperature Value=97.8 Units=?? F 02/19/2022 8867-4 [facility] Heart rate Value=75.0 Units=/min 08/2022 79855-4 [facility] O2 % dC Oximetry Value=96.0 Units= % 02/19/2022
== END 2024-11-25 10:12 | disposition home or self-care (01) ==
LOC: HO.ENCR 09:54
PROVIDERS: PCP Student in an Organized Health Care Education/Training Program
DX: M81.0 Age-related osteoporosis without current pathological fracture (principal)

== ENCOUNTER → 2024-11-25 09:53 | Outpatient (BNVA) | payer OTHER, SELFPAY | PROVIDERS: PCP Student in an Organized Health Care Education/Training Program | DX: M81.0 Age-related osteoporosis without current pathological fracture (principal) | CPT/HCPCS: 96372; J3111 ==

== ENCOUNTER 2024-11-26 07:26 | Outpatient (REF) | payer OTHER, SELFPAY ==
[2024-11-26 09:02] LABS: Albumin Level 3.8 g/dL (3.5-5.0); Anion Gap 13 (12-20); Blood Urea Nitrogen 8 mg/dL (9-16); Calcium 9.5 mg/dL (8.4-10.2); Carbon Dioxide 28 mmol/L (22-29); Chloride 108 mmol/L (96-108); Estimated Glomerular Filt Rate > 60; Glucose Random 118 mg/dL (60-115); Iron 133 mcg/dL (45-160); Percent Iron Saturation 36 % (15-50); Potassium 3.6 mmol/L (3.3-5.1); Sodium 145 mmol/L (135-145); Total Iron Binding Capacity 370 mcg/dL (228-428); Unsaturated Iron Binding 237 ug/dL
[2024-11-26 09:20] LABS: PSA,Total (Free>4and<10) 0.41 ng/mL (0.00-4.00)
[2024-11-26 09:22] LABS: Cortisol Random 14.6 ug/dL
[2024-11-27 07:29] LABS: DHEA Sulfate 38 mcg/dL (32-279); Follicle Stimulating Hormone 8.4 mIU/mL (1.4-12.8); Lutenizing Hormone 5.1 mIU/mL (1.6-15.2)
[2024-11-29 19:53] LABS: Adrenocorticotropic Hormone 39 pg/mL (6-50)
[2024-12-04 15:28] LABS: Sex Hormone Binding Globulin 30.5 nmol/L (22-77); Testosterone-Albumin 4.1 g/dL (3.6-5.1); Testosterone-Bioavailable 83.2 ng/dL (110.0-575.0); Testosterone-Free 44.2 pg/mL (46.0-224.0); Testosterone-Total 317 ng/dL (250-1100)
== END 2024-11-26 07:27 | disposition home or self-care (01) ==
LOC: HO.LAB 07:26
PROVIDERS: PCP Student in an Organized Health Care Education/Training Program; Visit Provider Student in an Organized Health Care Education/Training Program
DX: R79.89 Other specified abnormal findings of blood chemistry (principal); E29.1 Testicular hypofunction; M81.0 Age-related osteoporosis without current pathological fracture; Z12.5 Encounter for screening for malignant neoplasm of prostate
CPT/HCPCS: 36415; 80048; 82024; 82040; 82533; 82627; 83001; 83002; 83540; 84153; 84270; 84402; 84403

== ENCOUNTER 2024-11-28 08:41 | Outpatient (AMB) | payer OTHER, SELFPAY ==
--- NOTE | 2024-11-28 08:46 | A.OFFVIS_ITS ---
Vital Signs 3 11/28/24 08:48 Height 5 ft 6 in Weight 153 lb 14.122 oz BMI 24.8 BP 130/82 Blood Pressure Location Rt brachial Position Sitting Pulse 93 Pulse Source Pulse Oximeter Pulse Oximetry (%) 98 Oxygen Delivery Method Room Air Intake Visit Reasons: Adrenal hyperplasia, osteoporosis Intake Note: Patient present today for Adrenal hyperplasia, osteoporosis follow up visit. Airfield Manager Required: Yes Airfield Manager Language: Cylinder Block Hole Reliner Services: Airfield Manager Offered & Declined Accompanied by: WEBLOGIC DEVELOPER Allergies Seasonal Allergies Allergy (Intermediate, Verified 11/28/24 08:49) Eye Drainage codeine [From Tylenol-Codeine #3] Allergy (Mild, Verified 11/28/24 08:49) Rash levofloxacin [From Levaquin] Allergy (Mild, Verified 11/28/24 08:49) Rash metoclopramide [From Reglan] Allergy (Mild, Verified 11/28/24 08:49) Rash acetaminophen [Tylenol-Codeine #3] Allergy (Unknown, Verified 11/28/24 08:49) Rash Penicillins [PENICILLINS] Allergy (Unknown, Verified 11/28/24 08:49) Rash ibuprofen [From Motrin] Adverse Reaction (Unknown, Verified 11/28/24 08:49) Reflux HPI Comments Details: 59-year-old male with past medical history significant for HIV, hepatitis-C, seizure disorder, hypertension, prediabetes, anxiety/depression, asthma, history of left lung empyema status post drainage, chronic respiratory failure and recurrent aspiration pneumonia, parkinsonism, cardiomyopathy coming in today for follow up for adrenal hyperplasia and osteoporosis. Here today with WEBLOGIC DEVELOPER. Osteoporosis DEXA scan February 2023 baseline showed osteoporosis with a lumbar spine T-score - 4.5 with L2 as low as -5.1 , -2.1 in total femur and -2.7 left femoral neck Osteoporosis new pt evaluation osteoporosis: Diagnosed in February 2023 Fracture History: None Height loss: patient says he used to be 5 ' 6 before Back pain: reports B/L lower back pain , intermittent , started 2 weeks ago Pharmacotherapeutic hx: None Drug holiday None Family history: mother had osteoporosis , no parent fractured hip Secondary risk factors: Steroid use: has required intermittent steroids for pneumonia Hyperthyroidism: Neg Seizure medication use: has history of seizure medication use Chemo or Radiation use: Neg Heparin Use: Neg History of eating disorder: yes on PEG tube due to dysphagia for 1 year residential immobilization: Negative History of kidney stones or disease:Yes Ct abd 03/03 Kidneys and Ureters: Multiple bilateral nonobstructive renal calculi measuring up to 3 mm. No hydronephrosis. No perinephric fat stranding. has had 2 hospitalizations PI Use: Yes Chronic inflammatory lung disease: Yes Chronic inflammatory bowel disease: Negative Daily calcium intake: milk three cups a day, no cheese or yogurt , through PEG tube 600 mg BID calcium Vitamin D intake: through PEG tube 800 units BID vitamin D Exercise:not active Smoking history:never smoker Dental: Has regular dental cleaning, no issues has appointment in Oct 2024 Labs from 10/01/2024, showed normal kidney function with a EGFR greater than 60, calcium of 9.7 with albumin of 4.1, corrected calcium would be 9.6, ionized calcium 5.4, normal phosphorus 3.6, normal PTH, of 36.3, vitamin-D level of 44. Labs from August 2024 showed CTX elevated at 552, bone specific alkaline phosphatase low at 8.5. All of this points towards hi bone resorption. Normal 24 hour urine calcium levels of 219 from August 2024. Interval history 10/28/2024: Started on Evenity monthly injections No fractures Daily calcium intake: milk three cups a day, no cheese or yogurt , through PEG tube 600 mg BID calcium Vitamin D intake: through PEG tube 800 units BID vitamin D Exercise:not active Low cortisol levels Adrenal hyperplasia CT chest abdomen pelvis February 2024 showed mild asymmetric fullness of the left adrenal gland which is unchanged. CT abdomen 01/03/2023: Showed stable fullness of both adrenal glands. 05/01/2021: Also commented on left adrenal gland is thickened without any discrete mass, right adrenal gland unremarkable Lab workup done March 2023 showed aldosterone of 3, renin activity of 0.5, random cortisol of 8.2, no ACTH level done at that time, mildly elevated plasma free metanephrine of 63 and mildly elevated plasma free normetanephrine of 162, normal 24 hour urine free metanephrine and normetanephrine levels from 04/06/2023. No fractures, has osteoporosis which is severe as noted above. Has well-controlled blood pressure, only on amlodipine. No history of diabetes mellitus. No easy bruising, no proximal muscle weakness he does not have problems with the obesity, if anything he has had failure to thrive due to dysphagia, now better with PEG tube. Incidentally we did note low baseline cortisol levels in August 2024When his cortisol levels are noted to be around 2.6 from 10:00 and 2.7. Repeat labs at 08:00 showed random cortisol of 4.4, free cortisol of 0.20. His baseline cortisol levels are on the lower side. Acth is anywhere from 9-11. He is on megestrol, this can suppress pituitary adrenal axis leading to secondary adrenal insufficiency. He does not have any symptoms of nausea, vomiting, lightheadedness, dizziness. Blood pressure is normal. MRI brain from March 2024 was normal which commented on a normal pituitary gland. However given that he is at risk of developing secondary adrenal insufficiency, I would like to perform, cosyntropin stimulation test. Because we were doing secondary workup for osteoporosis we also got a 24 hour urine cortisol for him which was normal, so at this time suspicion for Luz Elena's or hypercortisolism is actually low. Interval history 10/01/2024: Normal cosyntropin stimulation test Male hypogonadism Blood work from August 2024 showed low free testosterone of 23.1 and low bioavailable testosterone of 46.5. SHBG 55. Normal total testosterone of 282. These labs were done at 10:00. Repeat labs done in September 2024 at 08:00 again showed low free testosterone of 30.2 and low bioavailable testosterone of 6.9. SH pg 36, testosterone total 254. FSH and LH were inappropriately normal from August 2024. 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 He denies any history of radiation or trauma to his head . MRI of the pituitary from March 2024 was also unremarkable. No pituitary tumor noted. Has a history of HIV and these patients can have hypogonadism and need testosterone replacement for overall wellness. Low hematocrit level also consistent with low testosterone levels. Total testosterone levels are falsely elevated in these patients usually due to high SHBG levels. He is also seeing he has not had any erections for the past 5 years or so. He is not sexually active. Interval history 11/26/2024: Pending testosterone levels Pending urolopgy appointment Physical exam General: sitting comfortably in no acute distress HEENT: normocephalic/atraumatic Neck: supple, symmetrical, no thyromegaly Cardiac: normal heart sounds Pulm: normal breath sounds B/L, no added breath sounds Abd: not distended, no tenderness, PEG tube noted Extremities: no edema, no signs of myxedema Laboratory Tests 01/04/23 04/04/23 04/06/23 05:08 09:39 06:00 Sodium Potassium 2.9 L D Creatinine Estimated GFR Calcium Phosphorus Magnesium Albumin Renin Activity 0.55 Aldosterone 3 Aldosterone/Renin Ratio 5.5 PTH Intact 30 Random Cortisol 8.2 Plasma Free Metaneph 63 H Plasma Free Normeta 162 H Plas Total Metaneph 225 H U Free Metanephrine 160 U Normetanephrine 24h 310 U Tot Metanephrine 24h 470 03/15/24 03/17/24 03/18/24 12:51 05:54 05:54 Sodium Potassium Creatinine Estimated GFR Calcium 8.0 L 8.5 D Phosphorus 2.6 L Magnesium Albumin Renin Activity Aldosterone Aldosterone/Renin Ratio PTH Intact Random Cortisol Plasma Free Metaneph Plasma Free Normeta Plas Total Metaneph U Free Metanephrine U Normetanephrine 24h U Tot Metanephrine 24h 05/07/24 07/15/24 04:06 12:26 Sodium 145 Potassium 3.8 Creatinine 0.88 Estimated GFR > 60 Calcium 10.1 D 10.2 Phosphorus Magnesium 2.3 Albumin 3.9 Renin Activity Aldosterone Aldosterone/Renin Ratio PTH Intact Random Cortisol Plasma Free Metaneph Plasma Free Normeta Plas Total Metaneph U Free Metanephrine U Normetanephrine 24h U Tot Metanephrine 24h Laboratory Tests 07/15/24 09/08/24 09/08/24 12:26 08:00 10:00 Hgb 13.5 L Hct 41.3 L Creatinine 0.92 Estimated GFR > 60 Calcium 10.2 Ionized Calcium 5.6 H Phosphorus 3.6 Alk Phos Bone Specific 8.5 Collgn I C-Telopeptide 552 H 25-OH Vitamin D Total 65.5 1,25 Dihydroxy Vit D TSH 0.68 FSH 6.9 Luteinizing Hormone 3.4 Testosterone Level 282 Free Testoster w SHBG 23.1 L Bioavail Testosterone 46.5 L Sex Hormone Bind Glob 55 DHEA Sulfate 65 PTH Intact 25.0 Random Cortisol 2.6 Free Cortisol ACTH 9 Urine Total Volume 2125 Ur 24 Hour Volume 2125 Ur Creatinine 24 Hour 1.24 Ur Sodium 24 Hour 119.0 Ur Calcium 24 Hr 219 Calcium/Creat 24 Hr 178 Ur Free Cortisol 24 Hr 35.1 01/06/25 01/07/25 01/22/25 10:36 09:58 08:16 Hgb Hct Creatinine 0.80 Estimated GFR > 60 Calcium 9.7 Ionized Calcium 5.4 Phosphorus 3.6 Alk Phos Bone Specific Collgn I C-Telopeptide 25-OH Vitamin D Total 44 1,25 Dihydroxy Vit D 24 TSH FSH Luteinizing Hormone Testosterone Level 254 Free Testoster w SHBG 30.2 L Bioavail Testosterone 56.9 L Sex Hormone Bind Glob 36 DHEA Sulfate 41 PTH Intact 36.3 Random Cortisol 2.7 4.4 Free Cortisol 0.20 ACTH 9 11 Urine Total Volume Ur 24 Hour Volume Ur Creatinine 24 Hour Ur Sodium 24 Hour Ur Calcium 24 Hr Calcium/Creat 24 Hr Ur Free Cortisol 24 Hr Imaging BONE DENSITOMETRY 03/07/23 CLINICAL INDICATION: Compression deformity of vertebra. COMPARISON: None (current study represents initial baseline exam). TECHNIQUE: Using a Gazelle DXA System (software version: 13.1) manufactured by [employer], dual-energy x-ray absorptiometry was performed of the lumbar spine and left hip. The images are of good technical quality. Summary results are attached. FINDINGS: LEFT FEMUR, NECK: BMD 0.716 g/cm2, Z-score -1.4, T-score -2.7, osteoporosis. LEFT FEMUR, TOTAL: BMD 0.801 g/cm2, Z-score -1.2, T-score -2.1, osteopenia. AP SPINE L1-L4: BMD 0.681 g/cm2, Z-score -3.5, T-score -4.5, osteoporosis. IDENTIFIED RISK FACTORS: Low calcium intake, history of fracture (adult). HISTORY OF FRACTURE: Ankle. MEDICATIONS: Multivitamin. MM/XR DEXA axial skeleton IMPRESSION: 1. DIAGNOSIS: Osteoporosis based on the lowest T-score value of -4.5 in the lumbar spine applying World Health Organization criteria. 2. 10-YEAR FRACTURE RISK PREDICTION, FRAX: According to the guidelines, FRAX calculation should only be performed on patients in the osteopenia bone density category. Therefore, FRAX was not performed on this patient. CT CHEST, ABDOMEN AND PELVIS WITHOUT CONTRAST. 02/15/24 CLINICAL INFORMATION: Chest pain, shortness of breath, left flank pain. COMPARISON: CT chest 01/10/2024. CT abdomen/pelvis 01/03/2023. TECHNIQUE: Multidetector volumetric imaging was performed from the thoracic inlet through the pubic symphysis without IV contrast. Sagittal and coronal reformatted images were obtained on the technologist's workstation. This CT examination was performed using dose optimization techniques as appropriate, variously including the following: *Automated exposure control *Adjustment of mA and/or kV according to patient size (this includes techniques or standardized protocols for targeted exams where dose is matched to indication/reason for exam; i.e. extremities or head) *Use of iterative reconstruction technique DLP: 418 mGy-cm FINDINGS: Limited noncontrast examination. CHEST: Lung: Evaluation is limited due to respiratory motion. No dense consolidation. Dependent subsegmental atelectasis and/or scarring. Layering intraluminal secretions are noted in the upper trachea, ciro and left mainstem bronchi. Focal mild bronchiectasis and architectural distortion in the superior aspect of the right lower lobe (7:156). Minimal groundglass attenuation of the lung parenchyma in the right apex (7:53). Few bilateral up to 3 mm solid pulmonary nodules, for instance in the right lower lobe images 256 and 228 series 7. Very subtle focal groundglass nodule in the right lower lobe measuring 8 mm image 178 series 7. Mediastinum: Cardiomegaly. No pericardial effusion. No mediastinal lymphadenopathy. Evaluation of the hilar structures is limited in the absence of IV contrast. Normal appearance of the thyroid gland. Pleura: No pleural effusion. No pneumothorax. Chest Wall/Axilla: No lymphadenopathy by size criteria. Osseous structures: Stable multilevel vertebral body height loss. Thoracic spondylosis. Unchanged deformities of the left seventh and eighth ribs with overlying metallic densities along the posterior aspect of these ribs. No acute osseous findings. ABDOMEN/PELVIS: Peritoneal Space: No free air or free fluid. Liver, Gallbladder, Biliary Tree: The liver is normal in size, shape, and attenuation. No focal hepatic lesion or biliary ductal dilatation is present. The gallbladder is unremarkable with no evidence of radiopaque gallstones, gallbladder wall thickening, or obvious pericholecystic inflammatory changes. Pancreas: Unremarkable. Spleen: Unremarkable. Adrenal Glands: Mild asymmetric fullness of the left adrenal gland is unchanged. Kidneys and Ureters: Multiple bilateral nonobstructive renal calculi measuring up to 3 mm. No hydronephrosis. No perinephric fat stranding. Bladder: Punctate calcification abutting the left posterior bladder wall (11:65). Gastrointestinal Tract: Gastrostomy tube. The stomach and the small bowel are nondilated. Normal appendix. Mild colonic diverticulosis without pericolonic inflammatory changes. No evidence of bowel obstruction. Abdominal Wall: No significant hernia is appreciated. Lymphovascular Structures: No lymphadenopathy by size criteria. Normal caliber abdominal aorta. Pelvic Viscera: Unremarkable. Osseous Structures: No acute osseous findings. CT/CT abdomen pelvis wo IV con IMPRESSION: 1. No focal consolidation or significant groundglass disease. Intraluminal secretions in the trachea and left mainstem bronchi that could be related with mucous secretions or aspirated material and that could predispose to aspiration. 2. Few bilateral groundglass and solid pulmonary nodules measuring up to 8 mm. Following Fleischner guidelines, follow-up CT chest in 3-6 months is recommended. 3. Nonobstructive bilateral renal calculi. 4. Punctate calcification abutting the left posterior bladder wall that could be related with a recently passed stone. Recommend attention on follow-up in future examinations to ensure the absence of underlying mural lesions. 5. Diverticulosis but no evidence of acute diverticulitis. CT ABDOMEN AND PELVIS WITHOUT CONTRAST 12/17/20 CLINICAL INFORMATION: Abdominal pain. No bowel movement in 5 days. Nausea. COMPARISON: CT abdomen and pelvis noncontrast 04/03/2020 TECHNIQUE: Multidetector volumetric imaging was performed from the superior aspect of the liver through the pubic symphysis. Sagittal and coronal reformatted images were obtained on the technologist's workstation. This CT examination was performed using dose optimization techniques as appropriate, variously including the following: *Automated exposure control *Adjustment of mA and/or kV according to patient size (this includes techniques or standardized protocols for targeted exams where dose is matched to indication/reason for exam; i.e. extremities or head) *Use of iterative reconstruction technique DLP: 347 mGy-cm FINDINGS: LUNG BASES: The visualized lung bases are unremarkable. LIVER, GALLBLADDER, AND BILIARY TREE: The liver is normal in size and smooth in contour. There is mild hepatic steatosis. No focal hepatic parenchymal lesion or intrahepatic ductal dilatation. The gallbladder is unremarkable with no evidence of radiopaque gallstones, gallbladder wall thickening, or obvious pericholecystic inflammatory changes. PANCREAS: Mildly atrophic. No duct dilatation or retroperitoneal inflammatory changes. SPLEEN: Normal in size. Small splenule again seen left upper quadrant, 1 cm. ADRENAL GLANDS: Mild fullness left adrenal stable. Right adrenal unremarkable. KIDNEYS AND URETERS: The kidneys are normal in size and smooth in contour and show no hydronephrosis. There is no hydroureter or perinephric stranding. Again, multiple small nonobstructing intrarenal calculi are present under 5 mm. No ureteral calculi. BLADDER: Unremarkable. GASTROINTESTINAL TRACT: There is moderate stool throughout the colon. There is no small or large bowel dilatation or focal inflammatory changes in the bowel or mesentery. No rectal fecal impaction. The appendix is not demonstrated with certainty and not visible on prior CT 2020 as well. There are no inflammatory changes around the terminal ileum or cecum. No ascites or fluid collection. ABDOMINAL WALL: No significant hernia is appreciated. LYMPH NODES: No lymphadenopathy. VASCULAR: Unremarkable. PELVIC VISCERA: Unremarkable. OSSEOUS STRUCTURES: Unremarkable. CT/CT abdomen pelvis wo con IMPRESSION: 1. Moderate stool throughout colon consistent with clinical history. No bowel obstruction or focal inflammatory changes. 2. Bilateral small nonobstructing renal calculi similar to prior CT 2020. No hydronephrosis or perinephric stranding. MR BRAIN WITHOUT AND WITH CONTRAST 03/17/24 CLINICAL INFORMATION: Generalized weakness. Leukoencephalopathy. COMPARISON: CT head from 03/07/2024. Brain MRI from 10/26/2023. TECHNIQUE: MRI of the brain was obtained using routine sequences without and following the administration of 5 mL of Gadavist intravenous contrast. FINDINGS: No focal restricted diffusion is demonstrated to suggest acute or subacute cerebral ischemia. No evidence of acute or chronic hemorrhagic products on heme-sensitive imaging. Scattered and partially confluent periventricular, deep white matter, and brainstem T2 FLAIR hyperintensities most commonly seen with mild to moderate underlying microangiopathy. Proportional prominence of the ventricles and sulcal spaces without evidence of obstructive hydrocephalus. No abnormal mass effect. No midline shift. Normal appearance of the pituitary gland. Normal positioning of the cerebellar tonsils. Normal arterial and venous vascular flow voids are present. No abnormal contrast enhancement. Normal, homogeneous marrow signal. Mucus retention cyst within the left maxillary sinus. Mild mucosal thickening of the remaining paranasal sinuses. No signal abnormalities within the mastoids. MR/MR head/brain wo/w con IMPRESSION: 1. No acute intracranial abnormalities. No abnormal intracranial enhancement. 2. Mild to moderate chronic white matter changes and generalized cerebral volume loss most commonly seen with microangiopathy. [facility] Medical History (Updated 11/23/24 @ 00:01 by Charanjit Doll) Lower urinary tract symptoms Hypogonadism in male Low serum cortisol level Adrenal hyperplasia Osteoporosis Height loss HIV (human immunodeficiency virus infection) Asthma Dysphagia Adult failure to thrive Adult failure to thrive Multiple rib fractures History of empyema of pleura (01/05/23) Hypertension Closed fracture of leg Hepatitis C Kidney stones Pleuritic chest pain Pneumonia Substance abuse Hemorrhoids Depression HIV (human immunodeficiency virus infection) Asthma Surgical History H/O hemorrhoidectomy Family History Maternal Grandmother Lung cancer Maternal Aunt Lung cancer Mother Lung cancer Social History Household Members: Caregiver Household Members Other:: lives with WEBLOGIC DEVELOPER Housing: Apartment Do you presently have visiting nurse or other home services: Yes Alcohol intake: never Patient Tobacco Use Status: Former Tobacco user Tobacco use type: Cigarette e-Cigarette/Vaping Use: Never Used Second Hand Smoke Exposure: No Substance Use Type: Crack/Cocaine Advance Directives Date on File: 04/25/21 service: No Current occupational status: disabled Gender identity: Male Physical Exam Vital Signs: BMI result Body Mass Index 24.8 Assessment & Plan Assessment & Plan (1) Osteoporosis: Code(s): M81.0 - Age-related osteoporosis without current pathological fracture Category: Medical Qualifiers: Osteoporosis type: age-related Presence of current pathological fracture: without current pathological fracture Qualified Code(s): M81.0 - Age- related osteoporosis without current pathological fracture Plan: 59-year-old male with past medical history significant for HIV, hepatitis-C, seizure disorder, hypertension, prediabetes, anxiety/depression, asthma, history of left lung empyema status post drainage, chronic respiratory failure and recurrent aspiration pneumonia, parkinsonism, cardiomyopathy coming in today to establish care for adrenal hyperplasia and osteoporosis. Osteoporosis was diagnosed on bone density scan in February 2023 which showed severe osteoporosis in the lumbar spine with T-score of-4.5 with L4 as low as-5.1. He also has osteoporosis at the left femoral neck with T-score of -2.7. Patients who have so much discordance in between bone densities in the spine and hip are also at higher risk of fracture compared to those who do not. Plus given his T- scores, he is at severe risk of fractures given his bone fragility. Has risk factors are HIV, history of hepatitis-C, history of seizure disorder with the use of medications in the past, chronic PPI use, malnutrition, chronic respiratory failure. I discussed conservative measures including adequate calcium intake, adequate vitamin D levels as well as the role of weightbearing exercises in general being good for bone health. Vitamin-D levels, he i from August 2000 12/29/2047 is appropriates to continue taking says 100 mg of calcium and 800 units of vitamin- D b.i.d. through his PEG tube as he is taking. Labs from 10/01/2024, showed normal kidney function with a EGFR greater than 60, calcium of 9.7 with albumin of 4.1, corrected calcium would be 9.6, ionized calcium 5.4, normal phosphorus 3.6, normal PTH, of 36.3, vitamin-D level of 44. Labs from August 2024 showed CTX elevated at 552, bone specific alkaline phosphatase low at 8.5. All of this points towards hi bone resorption. Normal 24 hour urine calcium levels of 219 from August 2024. Started Evenity 210 mg monthly injection on 10/28/2024. Plan: -continue Evenity 210 mg (105 mg X 2) injection monthly to complete a 12 month course (started 10/28/2024), we will plan to transition to bisphosphonates after -continue vitamin-D 800 units b.i.d. -continue calcium intake milk 3 cups a day through PEG tube in 600 mg b.i.d. of calcium supplement -stressed importance of walking and weight-bearing exercise e. -we will plan to repeat a bone density scan in November 2025 once he is done with evenity (2) Adrenal hyperplasia: Code(s): E27.8 - Other specified disorders of adrenal gland Category: Medical Plan: 59-year-old male who is noted to have adrenal hyperplasia at least since [address] scan of the abdomen revealed fullness of the left adrenal gland, subsequent CT scans, most recently done in February 2024 again showed mild asymmetric fullness of the left adrenal gland. I reviewed the images myself the right adrenal gland is also slightly more thickened than normal. The left 1 definitely he is much more full, no discrete mass identified. He has had functional Lab workup done March 2023 showed aldosterone of 3, renin activity of 0.5, random cortisol of 8.2, no ACTH level done at that time, mildly elevated plasma free metanephrine of 63 and mildly elevated plasma free normetanephrine of 162, normal 24 hour urine free metanephrine and normetanephrine levels from 04/06/2023. Lab workup clearly ruled out primary hyperaldosteronism as well as no concern for pheochromocytoma. Mild elevations in plasma metanephrine normetanephrine scan be seen in many other conditions/interference from medications. This is not significant elevation to be concerned about pheochromocytoma. Given that he does have osteoporosis, we had plan to do a dexamethasone suppression test however he could not perform it because he did not show up on time. Incidentally we did note low baseline cortisol levels in August 2024When his cortisol levels are noted to be around 2.6 from 10:00 and 2.7. Repeat labs at 08:00 showed random cortisol of 4.4, free cortisol of 0.20. His baseline cortisol levels are on the lower side. Acth is anywhere from 9-11. He is on megestrol, this can suppress pituitary adrenal axis leading to secondary adrenal insufficiency. He does not have any symptoms of nausea, vomiting, lightheadedness, dizziness. Blood pressure is normal. MRI brain from March 2024 was normal which commented on a normal pituitary gland. September 2024: Normal cosyntropin stimulation test. Normal 24 hour urine cortisol , so at this time suspicion for [place]'s or hypercortisolism is actually low. However I will do the 1 mg dexamethasone suppression test for the sake of completing workup. Given stability of the adrenal fullness since 2020, I am not concerned about malignancy, I am holding off on doing CT of the adrenal glands. Plan: -ordered 1 mg dexamethasone suppression test -ordered 17 hydroxyprogesterone levels given bilateral hyperplasia - (3) Hypogonadism in male: Code(s): E29.1 - Testicular hypofunction Category: Medical Plan: Blood work from August 2024 showed low free testosterone of 23.1 and low bioavailable testosterone of 46.5. SHBG 55. Normal total testosterone of 282. These labs were done at 10:00. Repeat labs done in September 2024 at 08:00 again showed low free testosterone of 30.2 and low bioavailable testosterone of 6.9. SH BG 36, testosterone total 254. FSH and LH were inappropriately normal from August 2024. 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 He denies any history of radiation or trauma to his head . MRI of thebrain with commen on pituitary from March 2024 was also unremarkable. No pituitary tumor noted. Has a history of HIV and these patients can have hypogonadism and need testosterone replacement for overall wellness. Low hematocrit level also consistent with low testosterone levels. Total testosterone levels are falsely elevated in these patients usually due to high SHBG levels. He is not had any erections for the past 5 years or so. He is not sexually active. Pending repeat 08:00 testosterone levels. Normal PSA, iron panel from November 2024. He has lower urinary tract symptoms, we will wait for him to be evaluated by Urology prior to considering starting testosterone replacement therapy. Plan: -follow up 08:00 labs to confirm hypogonadism -has urology appointment in December 2024, we will wait for this prior to starting testosterone replacement therapy as that can worsened prostatic hyperplasia. -we will consider starting testosterone replacement therapy in the near future -follow up in 6 weeks Plan See above Orders: Orders 2 17 Hydroxyprogesterone Today E27.8 - Other specified disorders of adrenal gland Medications: New 2 dexamethasone Take at 11 pm at night and go for blood work at 8 AM next morning 1 mg PO DAILY 1 tab 0RF Patient Instructions: For your bones continue Evenity Continue vitamin D and calcium as it is Do blood work today See urologist in December Do dexamethasone suppression test on Sunday night/Sunday morning Dexamethasone suppression test I would like you to do a dexamethasone suppression test to rule out Cushings syndrome. You will take a 1 mg pill of dexamethasone at 11 PM and then have a blood draw for cortisol at 8AM the next morning. It is important to make sure you take the dexamethasone at 11 PM and have the blood test as close to 8AM as possible. Follow up in 6 weeks Coding Level of Care Code Est Pt Level 3 (45238) Diagnoses Age-related osteoporosis without current pathological fracture M81.0 Osteoporosis type: age-related Presence of current pathological fracture: without current pathological fracture Adrenal hyperplasia E27.8 Hypogonadism in male E29.1
[2024-11-28 08:48] VITALS: BP 130/82; PULSE 93; O2SAT 98; BMI 24.8
--- OUTSIDE RECORDS SUMMARY | 2024-11-28 08:58 | XMS_ITS | Data Portability ---
Author Organization [facility] [place] Address [address] [place] [phone] Care Team Providers Care Education Site Manager Name Role Phone HIM [facility] OTHER [facility] OTHER [phone] Assessment No assessment recorded. Plan of Treatment [...] Not available Not available Not available 07/08/2024 [id number] RxNorm Not Available [facility] - production 4 [...] SNOMED-CT Code Diagnosis ICD10 Code Diagnosis Note [id number] ERLINDA HOLLIDAY MD Main - [facility] [address] [place] [phone] 03/06/2024 16:50:44 03/07/2024 17:38:50 Lethargy [id number] R53.83 Evaluation in the field was performed by my scrub nurse colleague. As noted above, I provided real-time [...] He is afebrile. Per discussion with the scrub nurse, the patient looked lethargic, walked with an [...] n. The patient was transferre d to [facility] for further evaluation and treatment. His PCP was informed of the transfer to the ED. Primary care, consider__ _ Dispositio n:[facility] Health Concerns Section Related Observation LastModified by Organization Jazzy ls LastModified Time None Recorded Concern Status LastModified by Organization Details LastModified Time None Recorded Advance Directives Directive None Recorded Payers Encounter Date Sequence Insurance Name Policy Number Policy Perry Covered Member ID Perry Member ID Guarantor Name 03/06/2024 1 [facility] - DOS ON OR AFTER 2022 - DUAL ELIGIBLE - [employer] OPT[employer] AND ONE CARE (MEDICARE REPLACEMENT/ADV ANTAGE - HMO) Benjamin Juan David [id number] [facility] Juan David Notes Date Note [...] ................. ................. ................. ................. ................. ................. ..... Change Management Expert Note From Francisco Ley: Dispatched to above address for headache sore throat. On arrival patient met [facility] at the door. Initially patient denied calling for medical help or having any symptoms. [facility] confirmed patient name and address, after this [...] focus on current situation, poor affect, lethargic. [facility] contacted, spoke with Dr. Holliday, advised of patient complaints and exam findings. [facility] agreed further evaluation in the ER is necessary for this patient. Patient agreed to this. Patients neighbor who assists patient arrived to check on him. She reports this doesn't seem like his normal mentation but cannot be sure. 911 called. [facility] responded. Verbal report given to [facility] Change Management Expert. [facility] scrub nurse took over patient care. [facility] clear. EOR. ................. ................. ................. ................. ................. ................. ................. ................. ..... Disposition: Shahzad HOLLIDAY MD [address] [facility],[address], [place], [address], [place] KEERTHI BLOCK 03/06/2024 18:02:19
--- OUTSIDE RECORDS SUMMARY | 2024-11-28 08:59 | XMS_ITS | Patient Health Record ---
Demographics Address [address] [place] [address] Preferred Language es Marital Status Unknown Baptist Affiliation Unknown Race White Ethnic Group Not or Lati no Author Organization [facility] Address [address] [place] [address] Care Team Providers Care Math And Science Division Chair Name Role Phone Terese Rivera Primary Care Provider Pepe Dangelo Unavailable [phone] Allergies Allergen (clinical drug ingredient) Drug/Non Drug [...] Status Risk Notes Problem Protein calorie malnutrition (046003709) Unspecified protein-calorie malnutrition (E46) Active confirmed Problem Anorexia (25413074) Anorexia (R63.0) Active confirmed Problem Dysphagia (14207523) Dysphagia (R13.10) Active confirmed Problem PEG (percutaneous endoscopic gastrostomy) adjustment/repla cement/removal (Z43.1) Active confirmed Vital Signs Blood pressure diastolic 00 mm Hg 10/09/2024 Height 66 in 10/09/2024 Blood pressure systolic 00 mm Hg 10/09/2024 Weight 147 lbs 10/09/2024 BMI 23.72 kg/m2 10/09/2024 Encounters Encounter Location Date Provider Diagnosis [facility] [address] [place] [phone] 10/09/2024 Pepe Stephenson Dysphagia R13.10 ; Unspecified protein-calorie malnutrition E46 and PEG (percutaneous endoscopic gastrostomy) adjustment/replacement /removal Z43.1 [facility] [address] [place] [phone] 10/26/2024 Pepe Stephenson [facility] [address] [place] [phone] 12/14/2023 Pepe Stephenson Assessments Encounter Date Diagnosis [...] Once we have the results of the [facility] GI series from 10/2024 and see [...] 11:00:00 AM, [address], [address], [place], [address], Insurance Providers Payer Name Payer Address Payer Phone Subscriber Number Group Number Insured Name Patient Relationship to Insured Coverage Start Date Coverage End Date [facility] [address] Attn Claims HOSEA Solorzano [id number] [facility] Self - patient is the insured Medical (General) History Medical History History ICD Code Seizures Kidney stones Denies OH,DM,CVA,renal disease HIV infection since age 23-[address] e[address]-reports neg. hepatitis serologies GERD Mild asthma-Albuterol prn Anxiety Fibromyalgia Gtube placed in July of 2023 HX of DVT's and Pulmonary em boli--2023-sees Dr. Wray--started Eliquis in 06/2024 Surgical History Surgery Date(Month/Year) Hemorrhoidectomy 2003 Eye surgery as a child
--- OUTSIDE RECORDS SUMMARY | 2024-11-28 08:59 | XMS_ITS | Continuity of Care Document ---
Author Organization [facility] Address [address] [place] [phone]- Support Name Relationship Address Phone DUFFY, VICKIE Personal Relationship Unknown Unava ilable DUFFY, VICKIE Personal Relationship Unknown Unava ilable DUFFY, VICKIE Personal Relationship Unknown Unava ilable DUFFY, VICKIE Personal Relationship Unknown Unava ilable RADIUS CORNER MACHINE OPERATOR WORKER, KRISS Other Unknown Unavaila [...] Unknown Unava ilable Care Team Providers Care Calender Operator Helper Name Role Phone Tatiana Garrido MD [facility] Care Physician [id number] Date(s): 10/28/24 - 11/27/[address] [address]- Attending Physician: AdmtrWillian Admitting Physician: Admtr, Ar8 Referring Physician: Willian Melvin Encounter Type: Triage Allergies, Adverse Reactions, Alerts [...] Refills, Maintenance, 06/27/24 2:49:00 PM EDT, Tablet, [facility], Partial fill upon patient request [...] PM EDT, Aerosol, Route to Pharmacy Electronically, [id number], [facility], 162, cm, 06/27/24 15:12:00 EDT, Height, [...] Team Personnel Name: Vivian Fuller RN Position: [facility] RN Member Role: Primary Care Nurse Name: Tatiana Garrido MD Position: [facility] Physician - Primary Care Member Role: PCP Address: [address] [place] [address] Telecom: Name: Allison Cabrera RN Position: S [...] Team Related Persons Name: ISAAC GARCIA Name: RADIUS CORNER MACHINE OPERATOR KRISS HECK Name: SUNITHA DUFFYRO Insurance Providers Guarantor name: [facility] Health Plan Information #: 1 Payer: [facility] [employer] CARE Member Number: NA Policy Number: NA Group Number: NA
--- OUTSIDE RECORDS SUMMARY | 2024-11-28 08:59 | XMS_ITS ---
Demographics Address [address] [place] [address] Preferred Language es Marital Status Unknown Jew Affiliation Unknown Race White Ethnic Group Not or Lati no Author Organization [facility] Address [address] [place] [address] Care Team Providers Care Office Machine Mechanic Name Role Phone Terese Rivera Primary Care Provider Pepe Dangelo Unavailable [phone] REASON FOR VISIT Pt no show Encounters Encounter Location Date Provider Diagnosis [facility] [address] [place] [address] 12/14/2023 Pepe Stephenson Plan Of Treatment Next Appt Details Provider Name:Pepe Stephenson , 02/12/2025 11:00:00 AM, [address], [address], [place], [address], Progress Notes * VICKIE DUFFYDOB:1965 (58 yo M)Acc No.[id number]:12/14/2023 Patient:?VICKIE DUFFY :1965???Age:58 Y???Sex:Male Address:[address], [place], [address] * true * Date:? Generated for Vanesai berenice/Hannah/eTransmitting on:?11/28/2024 08:59 AM EDT
--- OUTSIDE RECORDS SUMMARY | 2024-11-28 08:59 | XMS_ITS ---
Demographics Address [address] [place] [address] Preferred Language es Marital Status Unknown Rastafarian Affiliation Unknown Race White Ethnic Group Not or Lati no Author Organization [facility] Address [address] [place] [address] Care Team Providers Care Quotation Checker Name Role Phone Terese Rivera Primary Care Provider Pepe Dangelo [phone] Encounters Encounter Location Date Provider Diagnosis [facility] [address] [place] [address] 10/26/2024 Pepe Stephenson Plan Of Treatment Next Appt Details Provider Name:Pepe Stephenson , 02/12/2025 11:00:00 AM, [address], [address], [place], [address], Progress Notes * DUFFY, VICKIEDOB:1965 (59 yo M)Acc No.[id number]:10/26/2024 Patient:?VICKIE DUFFY :1965???Age:59 Y???Sex:Male Address:[address], [place] [address] * * Date:?
--- OUTSIDE RECORDS SUMMARY | 2024-11-28 08:59 | XMS_ITS | Data Portability ---
Author Organization LYNN WHITE MD [facility], Main Office Address [address] [place] [address] Assessment No assessment recorded. Plan of Treatment Reminders Order Date Submit Date Provider Last Modified By Organization Details Last Modified Time Details Appointments RESEARCH FOLLOW UP 2024 10:30A [address] MD Not available Not available Not available Lab None recorded . Referral None recorded . Procedures None recorded . Surgeries None recorded . Imaging electroc ardiogra m 2023 024 [email or web address] Main Office, [address] [place] [address], [address], 07/15/2024 15:47:38 Medication Orders clotrima zole 10 mg klaudia 2024 025 [facility][id number], [address] [place], [address], 11/25/2024 13:20:54 Benadryl 25 mg capsule 2024 025 [facility] #[id number], [address] [place], [address], 11/25/2024 13:20:55 Biktarvy 50 mg-200 mg-25 mg tablet 2024 025 [facility] #[id number], [address] [place], [address], 11/25/2024 13:20:54 clotrima zole 10 mg klaudia 2024 025 [facility] #[id number], [address] [place], [address], 10/21/2024 14:29:45 Biktarvy 50 mg-200 mg-25 mg tablet 2024 025 [facility] #[id number], [address] [place], [address], 10/21/2024 14:30:45 voricona zole 200 mg/5 mL (40 mg/mL) oral suspensi on 2023 024 [facility] #[id number], [address] [place], [address], 05/20/2024 11:43:08 Serostim 6 mg subcutan eous solution [address], [address], 05/20/2024 11:29:08 megestro l 625 mg/5 mL (125 mg/mL) oral suspensi on 2023 024 [facility] #[id number], [address] [place], [address], 05/20/2024 11:30:41 Patient TargetsNo targets recorded. Patient Instructions Encounter Date Encounter Id Patient Instructions Last Modified By Organization Details Last Modified Time 10/21/2024 [id number] Clotrimazole Oral Lozenge (CLOTRIMAZOLE LOZENGE - MUCOUS MEMBRANE (ORAL)) cmartorell Not available 10/21/2024 14:29:44 Reason for Referral None Reported. Results Created Date Observation Date Name Description Value Unit Range Abnormal Flag Note LastModifiedBy Organization Detail LastModifiedTime 06/18/2006/04/2024 US, abdom en, compl ete No observ ation record ed. [email or web address] [facility], [place], [address], 06/18/2024 11:12:25 07/15/20 24 07/15/2024 elect rocar diogr am No observ ation record ed. [email or web address] Main Office [address] [place], [address], 07/15/2024 17:12:05 07/17/20 24 moe butts am No observ ation record ed. [email or web address] Main Office [address] [place], [address], 07/17/2024 14:15:04 Result Notes None recorded. Problems Name Problem SNOMED Code Status Onset Date Resolution Date Notes Provider Name and Address Organization Details Recorded Time Asthma 465835640 Active 2006 Asthma; snomeddesc ription: Asthma; Report Immunity to Registry: Yes; Asthma; Report Immunity to Registry: Yes; ReasonDate : 10/13/2019 ; ; Start Date : 10/13/2019 Asthma; snomeddesc ription: Asthma; Report Immunity to Registry: Yes; Not Available [facility] 4 06:58:53 Male hypogonad ism 27729988 Active 2012 Male hypogonadi sm; snomeddesc ription: Male hypogonadi sm; Report Immunity to Registry: Yes; Not Available [facility] 4 06:58:53 Diarrhea 82265120 Active 2006 Diarrhea; snomeddesc ription: Diarrhea; Report Immunity to Registry: Yes; Diarrhea, unspecifie d; snomeddesc ription: Diarrhea; Report Immunity to Registry: Yes; Not Available [facility] 4 06:58:53 Substance abuse 74892745 Active 2006 Substance abuse; snomeddesc ription: Substance abuse; Report Immunity to Registry: Yes; Notes: opiate/suad jolene/benzo ; Not Available [facility] 4 06:58:53 Human immunodef iciency virus infection 02277474 Active 1991 Human immunodefi ciency virus [HIV] disease; snomeddesc ription: Human immunodefi ciency virus infection; Report Immunity to Registry: Yes; Human immunodefi ciency virus infection; snomeddesc ription: Human immunodefi ciency virus infection; Report Immunity to Registry: Yes; Not Available [facility] 4 06:58:53 Steatosis of liver 025124179 Active 2006 Steatosis of liver; snomeddesc ription: Steatosis of liver; Report Immunity to Registry: Yes; Notes: u/s 2021; Fatty (change of) liver, not elsewhere classified ; snomeddesc ription: Steatosis of liver; Report Immunity to Registry: Yes; Notes: u/s 2021; Not Available [facility] 4 06:58:53 Herpesvir us infection 51401894 Active 2009 Herpesvira l infection, unspecifie d; snomeddesc ription: Herpes simplex; Report Immunity to Registry: Yes; Notes: HSV 1 pos serology; HSV 2 neg serology; Not Available [facility] 4 06:58:53 Fibromyos itis 50172894 Active 2006 Myalgia and myositis, unspecifie d; snomeddesc ription: Fibromyalg ia; Report Immunity to Registry: Yes; Notes: Chronic pain multiple/c hronic back pain; Not Available [facility] 4 06:58:53 Herpes simplex 69167283 Active 2009 Herpes simplex; snomeddesc ription: Herpes simplex; Report Immunity to Registry: Yes; Notes: HSV 1 pos serology; HSV 2 neg serology; Not Available [facility] 4 06:58:54 Kidney stone 99608595 Active 2001 Calculus of kidney; snomeddesc ription: Kidney stone; Report Immunity to Registry: Yes; Kidney stone; snomeddesc ription: Kidney stone; Report Immunity to Registry: Yes; Not Available [facility] 4 06:58:54 History of calculus of kidney 973694598 Active 2001 History of calculus of kidney; snomeddesc ription: History of calculus of kidney; Report Immunity to Registry: Yes; Not Available [facility] 4 06:58:54 Type B viral hepatitis 80240294 Active 2006 Type B viral hepatitis; snomeddesc ription: Type B viral hepatitis; Report Immunity to Registry: Yes; Notes: core ab pos; s ag neg; s ab neg HBV vL nondetecte d 2016; 2017; Not Available [facility] 4 06:58:54 Hyperplas ia of prostate 774532622 Active 2014 Hyperplasi a of prostate, unspecifie d, without urinary obstructio n and other lower urinary symptoms (LUTS); snomeddesc ription: Hyperplasi a of prostate; Report Immunity to Registry: Yes; Hyperplas ia of prostate; snomeddesc ription: Hyperplasi a of prostate; Report Immunity to Registry: Yes; Not Available [facility] 4 06:58:54 Anxiety 58048939 Active 1996 Anxiety; snomeddesc ription: Anxiety; Report Immunity to Registry: Yes; Not Available [facility] 4 06:58:54 Testicula r hypofunct ion 762089318 Active 2012 Other testicular hypofuncti on; snomeddesc ription: Male hypogonadi sm; Report Immunity to Registry: Yes; Not Available [facility] 4 06:58:54 Seasonal allergic rhinitis 405783463 Active 2012 Other seasonal allergic rhinitis; snomeddesc ription: Seasonal allergy; Report Immunity to Registry: Yes; Notes: hx nasal congestion ; Not Available [facility] 4 06:58:54 Onychomyc osis due to dermatoph yte 511983545 Active 2017 Tinea unguium; snomeddesc ription: Onychomyco sis; Report Immunity to Registry: Yes; Notes: feet digits; Not Available [facility] 4 06:58:55 Sleep apnea 95470649 Active 1999 Sleep apnea; snomeddesc ription: Sleep apnea; Report Immunity to Registry: Yes; Unspecifi ed sleep apnea; snomeddesc ription: Sleep apnea; Report Immunity to Registry: Yes; Not Available [facility] 4 06:58:55 Psychoact marj substance abuse 08381233 Active 2006 Other psychoacti ve substance abuse, uncomplica lucho; snomeddesc ription: Substance abuse; Report Immunity to Registry: Yes; Notes: opiate/suad jolene/benzo ; Not Available [facility] 4 06:58:55 Viral hepatitis B without hepatic coma 509114079 Active 2006 Unspecifie d viral hepatitis B without hepatic coma; snomeddesc ription: Type B viral hepatitis; Report Immunity to Registry: Yes; Notes: core ab pos; s ag neg; s ab neg HBV vL nondetecte d 2016; 2017; Not Available [facility] 4 06:58:55 Blood chemistry outside reference range 421822416 Active 2012 Other specified abnormal findings of blood chemistry; snomeddesc ription: Decreased testostero ne level; Report Immunity to Registry: Yes; Notes: hypogoandi sm; Not Available [facility] 4 06:58:55 Arthritis 9579531 Active 1998 Arthritis; snomeddesc ription: Arthritis; Report Immunity to Registry: Yes; Notes: Osteoatrth ris multiple; Not Available [facility] 4 06:58:55 History of urinary stone 385101423 Active 2001 Personal history of urinary calculi; snomeddesc ription: History of calculus of kidney; Report Immunity to Registry: Yes; Not Available [facility] 4 06:58:56 Fibromyal mika 304528038 Active 2006 Fibromyalg ia; snomeddesc ription: Fibromyalg ia; Report Immunity to Registry: Yes; Notes: Chronic pain multiple/c hronic back pain; Not Available [facility] 4 06:58:56 Lyme disease 59902995 Active 2017 Lyme disease; Report Immunity to Registry: Yes; Notes: tx cefuroxime x14 d (hx all Doxy); Not Available [facility] 4 06:58:56 Headache 96959896 Active 2008 Headache; snomeddesc ription: Headache; Report Immunity to Registry: Yes; Notes: migraine; Headache; snomeddesc ription: Headache; Report Immunity to Registry: Yes; Notes: migraine; Not Available [facility] 4 06:58:56 Hypertens marj disorder 68603861 Active 2017 Hypertensi ve disorder; snomeddesc ription: Hypertensi ve disorder; Report Immunity to Registry: Yes; Not Available [facility] 4 06:58:56 Arthropat hy 723191940 Active 1998 Arthropath y, unspecifie d, site unspecifie d; snomeddesc ription: Arthritis; Report Immunity to Registry: Yes; Notes: Osteoatrth ris multiple; Not Available [facility] 4 06:58:56 Essential hypertens ion 23259382 Active 2017 Essential (primary) hypertensi on; snomeddesc ription: Hypertensi ve disorder; Report Immunity to Registry: Yes; Not Available [facility] 4 06:58:57 Testoster one level below reference range 008486598 Active 2012 Decreased testostero ne level; snomeddesc ription: Decreased testostero ne level; Report Immunity to Registry: Yes; Notes: hypogoandi sm; Not Available [facility] 4 06:58:57 Insomnia 153345518 Active 1996 Insomnia; Report Immunity to Registry: Yes; Not Available [facility] 4 06:58:57 Anxiety state 604913569 Active 1996 Anxiety state, unspecifie d; snomeddesc ription: Anxiety; Report Immunity to Registry: Yes; Not Available [facility] 4 06:58:57 Onychomyc osis 826617342 Active 2017 Onychomyco sis; snomeddesc ription: Onychomyco sis; Report Immunity to Registry: Yes; Notes: feet digits; Not Available [facility] 4 06:58:57 Chronic hepatitis C 683706095 Active 2006 Chronic hepatitis C without mention [...] neg 2015;2017; 12/2021 F2 ; Not Available [facility] 4 06:58:57 Depressiv e disorder 71754048 Active 1996 Depressive disorder, not elsewhere classified ; snomeddesc ription: Depressive disorder; Report Immunity to Registry: Yes; Depressiv e disorder; snomeddesc ription: Depressive disorder; Report Immunity to Registry: Yes; Not Available [facility] 4 06:58:58 Seasonal allergy 040528842 Active 2012 Seasonal allergy; snomeddesc ription: Seasonal allergy; Report Immunity to Registry: Yes; Notes: hx nasal congestion ; Not Available [facility] 4 06:58:58 Loss of appetite 91954246 Active 2012 Anorexia; snomeddesc ription: Loss of appetite; Report Immunity to Registry: Yes; Loss of appetite; snomeddesc ription: Loss of appetite; Report Immunity to Registry: Yes; Not Available [facility] 4 06:58:58 Seizure 62518011 Active 2000 Seizure; snomeddesc ription: Seizure; Report [...] Report Immunity to Registry: Yes; Not Available [facility] 4 06:58:58 Problem Notes None recorded. Procedures Surgical History None recorded. Imaging Results Imaging Date Name Status LastModified by Organization Details LastModified Time 06/04/2024 US, abdomen, complete completed [email or web address] [place], [address], 06/18/2024 11:12:25 07/15/2024 electrocardiogram completed [email or web address], [address], 07/15/2024 17:12:05 07/17/2024 electrocardiogram completed [email or web address], [place], [address], 07/17/2024 14:15:04 Procedure Notes None recorded. Medical Equipment None Reported. Allergies Allergen ID Allergen Name Allergen Category Reaction Reaction Severity Criticality Documentation Date Start Date Code Code System Note Provider Name and Address Organization Details Recorded Time 714 Reglan medicatio n Not available Not available Not available 10/31/20232012 9230 RxNorm Comme nt: adver se_ev ent_t ype: 84526 8002; ; Not Available [facility] 4 06:50:47 715 Motrin medicatio n Not available Not available Not available 10/31/2023201248 8 RxNorm Comme nt: adver se_ev ent_t ype: 25306 8002; ; Not Available [facility] 4 06:50:47 716 doxycycli ne Not available Not available Not available Not available 10/31/20232017 3640 RxNorm Comme nt: adver se_ev ent_t ype: 37615 8002; ; Not Available [facility] 4 06:50:47 Medications Name Sig [...] yordy; Not Available Not Available Not Available pilocarpi [...] BY SUBCUTAN EOUS ROUTE FOR 30 DAYS. 2024 active Not Available Not Available Not Avai lable acetamino phen 325 mg tablet TOME DOS TABLETAS POR V A ORAL CADA SEIS HORAS CUANDO SEA NECESARI O PARA EL DOLOR-OR LD POR 10 D active Not Available [...] tid; VACCINE_ IND: no; SU_FULL_ NAME: Cheryl Taylorsusan [...] q1mo; VACCINE_ IND: no; SU_FULL_ NAME: Cheryl Palomo yordy; Not Available Not Available Not Available mirtazapi [...] Available Liquid Nutrition oral 0 Quantity : 87021; Duration : 30; 0 refill(s ) 09/30 [...] yordy; Not Available Not Available Not Available risperido [...] t Available Benadryl 25 mg capsule 1-2 tabs po QD PRN for itchines s/insomn ia. 2024 active Not Available Not Available Not [...] Not Available Not Available Not Available Flulaval 0107-0147 45 mcg (15 mcg x 3)/0.5 mL [...] Not Available Not Available Not Available Afluria 3004-6581 45 mcg (15 mcg x 3)/0.5 mL [...] yordy; Not Available Not Available Not Available Boost [...] Not Available Not Available Not [facility] l[facility] 60 mcg (15 mcg x 4)/0.5 mL IM suspensio n quadriva lent Quantity : ; 0 refill(s ) 2017 active VACCINE_ IND: yes; VACCINE_ NAME: influenz a, injectab le, quadriva lent; SU_FULL_ NAME: Cheryl Brandonsusan scales; VIS_DATE : 19:25:45 .0; Not Available Not Available Not Available Evenity 210 mg/2.34 mL (105 mg/1.17 mL x 2) subcutane ous syringe active Not Available Not Available Not Available [facility] Quad 60 mcg (15 mcg x 4)/0.5 mL intramusc ular susp. quadriva lent Quantity : ; 0 refill(s ) 2018 active VACCINE_ IND: yes; VACCINE_ NAME: influenz a, injectab le, quadriva lent; SU_FULL_ NAME: Cheryl Palomo yordy; VIS_DATE : 05:00:00 .0; Not Available Not Available Not Available [facility] 60 mcg (15 mcg x 4)/0.5 mL intramusc ular susp. quadriva lent Quantity : ; 0 refill(s ) 2019 active VACCINE_ IND: yes; VACCINE_ NAME: influenz a, injectab le, quadriva lent; SU_FULL_ NAME: Cheryl Martsusan scales; VIS_DATE : 14:37:48 .0; Not Available Not Available Not Available Prevnar 20 (PF) 0.5 mL intramusc ular syringe - Quantity : ; 0 refill(s ) 2022 active VACCINE_ IND: yes; VACCINE_ NAME: Pneumoco ccal conjugat e PCV20, polysacc haride [id number] conjugat e, adjuvant , PF; Not Available Not Available Not Available Vitals Date Recorded Body height Heart rate Respiratory rate Body temperature Body mass index (BMI) Body weight Systolic blood pressure Diastolic blood pressure Provider Name and Address Organization Details Last Updated DateTime 4 162.56 cm 109 /min 20 /min 97.2 [degF] 21.1 kg/m2 05044.8 6 g 111 mm[Hg] 90 mm[Hg] [address] MD [facility] 4 12:07:11 Date Recorded Body height Heart rate Respiratory rate Body temperature Body mass index (BMI) Body weight Systolic blood pressure Diastolic blood pressure Provider Name and Address Organization Details Last Updated DateTime 4 162.56 cm 89 /min 16 /min 98 [degF] 20.6 kg/m2 49265.0 8 g 123 mm[Hg] 90 mm[Hg] [address] MD [facility] 4 14:28:38 Date Recorded Body height Provider Name an d Address Organization Details Last Updated DateTime 07/15/[address] MD [facility] 07/15/2024 15:22:29 Date Recorded Body temperature Body mass index (BMI) Body weight Respiratory rate Heart rate Systolic blood pressure Diastolic blood pressure Provider Name and Address Organization Details Last Updated DateTime 4 98.7 [degF] 20.6 kg/m2 48282.0 8 g 20 /min 87 /min 120 mm[Hg] 80 mm[Hg] Cheryl Street MD [address] [place] [address] [place], [place], [address], [address] MD [facility] 4 15:46:02 Date Recorded Heart rate Body temperature Body weight Systolic blood pressure Diastolic blood pressure Provider Name and Address Organization Details Last Updated DateTime 10/21/2024 98 /min 98.2 [degF] 19594.2 6 g 118 mm[Hg] 97 mm[Hg] [address] MD [facility] 5 12:04:23 Date Recorded Body height Heart rate Respiratory rate Body mass index (BMI) Body weight Systolic blood pressure Diastolic blood pressure Provider Name and Address Organization Details Last Updated DateTime 5 162.56 cm 81 /min 20 /min 24.9 kg/m2 81451.8 9 g 136 mm[Hg] 89 mm[Hg] Cheryl Street MD [address] [place], [address], [place] - [address] MD [facility] 5 15:01:34 Social History None recorded. Functional Status None recorded. Mental Status None recorded. Family History Nothing Reported Notes:High cholesterol, Resp onse Property: Yes; , Cancer, other unspecified, Response Property: Yes; , Diabetes, Response Property: Yes; Medical History No medical history recorded. Immunizations Vaccine Type Date Status Note Provider Nam e and Address Organization Details Recorded Time Meningococcal MCV4O 9 completed Not Available [facility] 10/31/2023 06:54:49 zoster live 9 completed Not Available [facility] 10/31/2023 06:54:50 Influenza, split virus, quadrivalent, preservative 9 completed Not Available [facility] 10/31/2023 06:54:50 Influenza, split virus, quadrivalent, preservative 8 completed Not Available [facility] 10/31/2023 06:54:50 Influenza, split virus, quadrivalent, preservative 0 completed Not Available [facility] 10/31/2023 06:54:50 Past Encounters Encounter ID Performer Location Encounter Start Date Encounter Closed Date Diagnosis/Indication Diagnosis SNOMED-CT Code Diagnosis ICD10 Code Diagnosis Note [id number] Krista Castellano Main Office [address] [place] [address] 05/25/2023 09:48:40 06/27/2023 09:16:16 Human immunodeficiency virus infection 69941791 B20 HIV. Continue Biktarvy 1 tab po [...] /Tivicay.. safe sex. plan of care reviewed [address] MD Main Office [address] [place] [address] 08/24/2023 09:33:00 08/24/2023 10:46:09 Human immunodeficiency virus infection 41465546 B20 HIV. Continue Biktarvy 1 tab po [...] /Tivicay.s afe sex.labs Septemberlan of care reviewed [address] MD Main Office [address] [place] [address] 11/12/2023 11:34:42 11/16/2023 15:00:47 Human immunodeficiency virus infection 37322065 B20 HIV.Contin ue Biktarvy 1 tab po qd.U=Upt aware of PreP availabili ty.condom use.plan of care reviewed Adult heal th examination 078865145 Z00.[address] MD Main Office [address] [place] [address] 11/21/2023 10:59:43 11/23/2023 14:55:[address] MD Main Office [address] [place] [address] 01/14/2024 09:27:39 01/16/2024 13:51:[address] MD Main Office [address] [place] [address] 01/16/2024 10:24:39 01/16/2024 11:50:10 Human immunodeficiency virus infection 35456970 B20 HIV.Contin ue Biktarvy 1 tab po qd.U=Upt aware of PreP availabili ty.condom use.labs todayplan of care reviewed Candidiasis of mouth 797 03010 B37.0 nystatin 5cc po qid x 14 days. swish and spit.call with any side effects.ba cterial/fu ngal swab obtained. 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 [address] MD Main Office [address] [place] [address] 02/14/2024 12:00:04 02/14/2024 12:24:19 Human immunodeficiency virus infection 06572861 B20 HIV.Contin ue Biktarvy 1 tab po qd.U=Upt aware of PreP availabili ty.DoxyPEP reviewedco ndom use.labs todayplan of care reviewed Methicilli n resistant Staphylococcus aureus infection 330896176 A49.02 swab culture 01/2024 Candidiasi s of the esophagus 61207533 B37.81 sandy glabratafl uconazole 100mg po qd x 14 dayscall with any side effects. Weight loss 22746537 R63 .4 contributi ng factor sandy, MRSA, HIV among othermight benefit from Serostim.w ill review with himG tube [address] MD Main Office [address] [place] [address] 02/21/2024 11:08:05 02/21/2024 12:09:56 Human immunodeficiency virus infection 50203801 B20 HIV.Contin ue Biktarvy 1 tab po qd.complia nce reviewedU= Upt aware of PreP availabili ty.DoxyPEP reviewedco ndom use.labs todayplan of care reviewed Candidiasi s of the esophagus 57300230 B37.81 sandy glabratato complete fluconazol e 100mg po bid x 14 days: (10mg/ml) 10ml by G tube bidcall with any side effects. Methicilli n resistant Staphylococcus aureus infection 370405862 A49.02 swab culture 4curr ently on Bactrim oral suspension (200mg- 40mg/5ml) since 02/15-20ml q 12 hrs G tube x 10 days Cachexia a ssociated with AIDS 378646762 B20 R64 weight loss. frail. progressin g.contribu ting factor sandy, MRSA, HIV among other. G tubeSerost im 6mg sq qd will be prescribed with the goal of helping w weight gain, increase muscle mass gain, and increase enduranceh e has visiting nurse who could assist with daily injections . [address] MD Main Office [address] [place] [address] 02/25/2024 10:24:53 02/25/2024 11:09:27 Human immunodeficiency virus infection 74602620 B20 HIV.Contin ue Biktarvy 1 tab po qd.complia nce reviewedU= Ucondom use.labs todayplan of care reviewed Candidiasi s of the esophagus 87608248 B37.81 sandy glabratawi ll continue fluconazol e 200 mg po qd x 14 days: (10mg/ml) 10ml by G tube QD;will on next appointmen t for further tx va suppressio n tx.call with any side effects. Cachexia a ssociated with AIDS 643266229 B20 R64 weight loss. frail. progressin g.approved Serostim 6mg sq qd; awaiting delivery to the office. will be prescribed with the goal of helping w weight gain, increase muscle mass gain, and increase enduranceh e has visiting nurse who could assist with daily injections .ensure tidmegace 625 mg qd. Methicilli n resistant Staphylococcus aureus infection 930738760 A49.02 swab culture 01/2024will complete 10 days of Bactrim oral suspension (200mg- 40mg/5ml) since 02/15-20ml q 12 hrs G tube on 02/27/[address] MD Main Office [address] [place] [address] 03/14/2024 10:24:00 03/14/2024 10:29:25 Cachexia associated with AIDS 563743419 R64 B20 gained 2 pounds. probably improved sandy esophagiti s 2nd to inhaled steroids.S Tart Serostim 6mg s/c qd abdomen. first dose administer ed today. Tolerated well; goalis to increase weight, endurance and muscle massHe will have PRICE ACCURACY SUPERVISOR and nurse help with daily injections .potential side effects reviewed.t o call with any concernshe will picker and packer Megace today, and start it as well(G tube) qd to increase apetitte Human immunodeficiency virus infection 03763705 B20 HIV.Contin ue Biktarvy 1 tab po qd.compljordon hoffman reviewed Candidiasi s of the esophagus B37.81 sandy glabratawi ll continue 2 more weeks of fluconazol e 200 mg po qd x 14 days: (10mg/ml) 10ml by G tube QD;might benefit from qw suppressio n tx.call with any side effects. [address] MD Main Office [address] [place] [address] 04/18/2024 09:52:00 04/18/2024 11:19:01 Cachexia associated with AIDS 350872719 R64 B20 124 lbs. gained weightcont inue Serostim 6mg s/c qd abdomen. goalis to increase weight, endurance and muscle masscontin ue Megace G tube qdCNA and nurse helping with compliance and tx.potenti al side effects reviewed.t o call with any concerns Human immunodeficiency virus infection 84890820 B20 HIV.Contin ue Biktarvy 1 tab po qd.padmini hoffman reviewedla bs today Candidiasi s of the esophagus 7.81 sandy glabratawi ll continue fluconazol e 200 (10ml) mg G tube qw for suppressio n tx.call with any side effects. Aspiration pneumonia 422 427359 J69.0 get discharge summaryon antibiotic ;eat standing or sitting; and not sleeping/[place] [address] MD Main Office [address] [place] [address] 05/20/2024 10:17:53 05/20/2024 12:44:49 Cachexia associated with AIDS 352007579 R64 B20 continue Serostim 6mg s/c qd abdomen. goal is to increase weight, endurance and muscle masscontin ue Megace G tube qd 5cc qdCNA and nurse helping with compliance and tx.potenti al side effects reviewed.t o call with any concerns Human immunodeficiency virus infection 94672798 B20 HIV.Contin ue Biktarvy 1 tab po qd.compljordon hoffman reviewedla bs today Candidiasi s of the esophagus B37.81 sandy glabrataho ld fluconazol e for nowSTART 1 tab po bid x 21 says for esophageal sandy glabrata.c all with any side effects. [address] MD Main Office [address] [place] [address] 06/18/2024 10:10:09 06/18/2024 11:12:33 Cachexia associated with AIDS 261733556 R64 B20 continue Serostim 6mg s/c qd abdomen. goal is to increase weight, endurance and muscle massCNA and nurse helping with compliance and tx.megace on holdpotent ial side effects reviewed.t o call with any concerns Human immunodeficiency virus infection 68280955 B20 HIV.Contin ue Biktarvy 1 tab po qd.padmini copelande reviewedla bs today Inflammato ry disease of liver 142503767 K75.9 Suspect 2nd to concomitan t medication s. ongoingdo not re-start fluconazol e nor megacenega tive infectious and non-infect ious workupto call or ER if jaundice, abd pain, n/v/d marce aleksandar History of calculus of kidney 708833305 Z87.442 u/s 05/[address] scan 02/2024hydr ation Aspiration pneumonia 422 000035 J69.0 s/p aspiration on CT AngioNPO per instructio n given to him in hospital; nutrition by G tubes/p (ceftriaxo ne,Azithro ,Flagyl while in Hospital;d ischarged on azithro and cefpodoxim e x 3 days which he completed. leg elevationa void sedating meds as much as possible Deep venou s thrombosis of lower extremity 071964088 I82.409 left lower extremity doppler showed DVT of gastrocnem ius vein;on tx w w Eliquis bid . Pulmonary embolism [address] Angio was positive for Acute lobar PEs/p heparin; ongoing Eliquis bidmed list reviewed.n o drug use for years. not on maintenanc e tx.denies current ETOH use. [address] MD Main Office [address] [facility] [place] [address] 07/15/2024 15:10:10 07/15/2024 15:45:30 Cachexia associated with AIDS 557110089 R64 B20 continue Serostim 6mg s/c qd abdomen. goal is to increase weight, endurance and muscle masspotent ial side effects reviewed.t o call with any concerns Human immunodeficiency virus infection 12281286 B20 HIV.Contin ue Biktarvy 1 tab po qd.complia nce reviewedla bs Candidiasi s of the esophagus 81 on clotrimazo le. swish and spit qd Medication monitoring [address] MD Main Office [address] [place] [address] 10/21/2024 12:22:54 10/21/2024 16:48:51 Cachexia associated with AIDS 984452961 R64 B20 improvedco ntinue Serostim 6mg s/c qd abdomen. goal is to increase weight, endurance and muscle masspotent ial side effects reviewed.m ay start decreasing dose in 1-2 months if further weight gainon Boost protein shakesto call with any concerns Human immunodeficiency virus infection 71834031 B20 HIV.Contin ue Biktarvy 1 tab po qd.compljordon copelande reviewedla bs Candidiasi s of the esophagus 81 on clotrimazo le. swish and spit qd/BID PRN [address] MD Main Office [address] [place] [address] 11/25/2024 11:48:55 11/25/2024 14:20:54 Cachexia associated with AIDS 865760270 R64 B20 improvedco ntinue Serostim 6mg s/c qd abdomen. goal is to increase weight, endurance and muscle masspotent ial side effects reviewed.m ay start decreasing dose in 1-2 months if further weight gain, and after G tube gets removed.on Boost protein shakescont inue megace for now; will also plan to discontinu e once G tube is removed.to call with any concerns Human immunodeficiency virus infection 47454596 B20 HIV.Contin ue Biktarvy 1 tab po qd.complia nce reviewedla bs Candidiasi s of the esophagus 81 off/on; recurrento n clotrimazo le. swish and spit qd/BID PRN for suppressio n Insomnia 415411610 G47.0 0 benadryl capsules requested by patient forinsomni a and itchiness as needed.cor rect use reviewed. Health Concerns Section Related Observation LastModified by Organization Detai ls LastModified Time None Recorded Concern Status LastModified by Organization Details LastModified Time None Recorded Advance Directives Directive None Recorded Payers Encounter Date Sequence Insurance Name Policy Number Policy Perry Covered Member ID Perry Member ID Guarantor Name 05/20/2024 1 [email or web address] ON OR AFTER 2022 - MEDICARE ADVANTAGE [place]ANTAGE - PPO) [facility] [id number] [facility] 06/18/2024 1 [employer] - DOS ON OR AFTER 2022 - [place]IC[place]ANTAGE - PPO) [facility] [id number] [facility] 07/15/2024 1 [employer] - DOS ON OR AFTER 2022 - [place]ANT[place] - PPO) [facility] [id number] [facility] 10/21/2024 1 [employer] - DOS ON OR AFTER 2022 - [place]ANT[place] - PPO) [facility] [id number] [facility] 11/25/2024 1 [employer] - DOS ON OR AFTER 2022 - [place]ANTAGE - PPO) [facility] [id number] [facility] Notes Date Note Type Note Provider Name and Address Organization Details Recorded Time 05/20/2024 text/html HIVOn Biktarvy 1 tab po [...] VL nondetetcted01/2024 HIV VL nondetcetd;eGFR=76;AST /ALT wnl;11/2023 UU5=433; HIV VLnondetceted; no infections.01/2022 KT1=725; HIV VL nondetceted; eGFR>60; ALt/AST wnl; syphilis neg; GC/chlamydia neg Cheryl Street MD [address] [place] [address], [phone], [place] [address] [facility] 05/20/2024 12:17:47 06/18/2024 text/html HIVOn Biktarvy 1 tab po qd.reports daily compliance. denies missing dose.resolved thrush. hx recurrence. fluconazole and voriconazole on hold. Pt reports was hospitalized at [facility] 06/10/24-06/13/24 ( got to ER on 06/09/24); [...] VL nondetetcted01/2024 HIV VL nondetcetd;eGFR=76;AST /ALT wnl;11/2023 FZ2=010; HIV VLnondetceted; no infections.01/2022 QB8=552; HIV VL nondetceted; eGFR>60; ALt/AST wnl; syphilis neg; GC/chlamydia neg Cheryl Street MD [address] [place] [address], [phone], [address] [facility] 06/18/2024 18:19:56 07/15/2024 text/html HIVOn Biktarvy 1 tab po qd.reports daily compliance. denies missing dose.thrush on/off: recurrence. on clotrimazole daily .stable weight 120lbshe says he is eating more and apetitte has improvedfeels strongergetting serostim dailyno hospitalizations since he was last seenmed list reviewed.On Eliquis and enoxaparin. recent PE/DVT.VL nondetected03/2024 HIV VL nondetctedHIV VL nondetetcted01/2024 HIV VL nondetcetd;eGFR=76;AST /ALT wnl;11/2023 PQ5=545; HIV VLnondetceted; no infections. Cheryl Street MD [address] [place] [address], [phone], [address] [facility] 07/15/2024 15:47:48 10/21/2024 text/html HIVOn [...] notify site start date and confirm medication. 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 Cheryl Street MD [address] [place] [address], [phone], [place] [address] [facility] 10/21/2024 14:34:28 11/25/2024 text/html HIVOn Biktarvy 1 tab po qd.reports daily compliance. denies missing dose. currently no thrush today. gets on/off and using clotrimazole qd to suppress.gaining weight: 120lbs ---145lbshe says he is eating more and apetitte has improvedno aspirationgetting serostim daily for cachexia,no side effects.no hospitalizations since he was last seen using benadryl to sleep and skin itchiness as neede;d requests refill of capsule formulationmed list reviewed.VL nondetectedplan to remove G Tube on Jan, 2025 if he is able to keep weight stable. not using it at curren time.had crouch's cyst removal in recent weeks. outpatient/day procedure. 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 07/2025 HIV VL nondetceted; ALt/AST wnl; eGFR>60; ES0=[address] MD [address] [place] [address], [phone], [place] [address] [facility] 11/26/2024 15:09:42
--- OUTSIDE RECORDS SUMMARY | 2024-11-28 08:59 | XMS_ITS ---
Author Organization [facility] Care Team Providers Care [employer] Underwriter Name Role Phone Krista Teresa Unavailable Unavailable Ann Wild Unavailable Unavailable Fatmata Teran Unavailable Unavailable Vidal Rose Unavailable Unavailable Allergies and adverse reactions Code CodeSystem Substance Reaction Severity StartDate Concern Status Tylenol Unknown 02/15/2022 active 36983 RXNORM traMADol Unknown 02/15/2022 active Reglan Unknown 02/15/2022 active 5884 RXNORM Penicillin Unknown 02/15/2022 active Levaquin Unknown 02/15/2022 active 7380 RXNORM Codeine Unknown 02/15/2022 active Care Team Name Role Address Phone Organization Ambrosio Wild PCP [address], [place], [address], [place] (Office): : [facility] 02/15/2022 - 03/09/2022 Krist[place], [address], [place] (Office): : [facility] 02/15/2022 - 03/09/2022 Fatmata Teran Attending Physician [address] [place] [address] [place] [address], [address], [place] (Office): [facility] 02/15/2022 - 03/09/2022 Vidal Rose Attending Physician [address], [place], [address], [place] (Office): : [facility] 02/15/2022 - 03/09/2022 Goals [...] Code Code System Date Dependence on Cane 209542553 SNOMED CT 3 Mental Status Section Date Assessment Total Score Description 03/09/2022 BIMS 15 cognitively int act CAM 0 No delirium ind icated PHQ-9 00 02/22/2022 BIMS 15 cognitively int act CAM 0 No delirium ind icated PHQ-9 07 mild depression Problems Problem # Description Date of onset Resolved Date Code CodeSystem Concern Status 1 DEPRESSION, UNSPECIFIED 02/15/[id number] active 2 DIFFICULTY IN WALKING, NOT ELSEWHERE CLASSIFIED 02/15/[address] active 3 ENCOUNTER FOR OTHER ORTHOPEDIC AFTERCARE 02/15/[address] active 4 MUSCLE WEAKNESS (GENERALIZED) 02/15/[address] active 5 NONDISPLACED COMMINUTED FRACTURE OF SHAFT OF LEFT TIBIA, SEQUELA 02/15/[address] active 6 OTHER ABNORMALITIES OF GAIT AND MOBILITY 02/15/[address] active 7 PLEURODYNIA 02/15/[address] active 8 UNSPECIFIED ASTHMA, UNCOMPLICATED 02/15/[address] active 9 UNSPECIFIED FRACTURE OF SHAFT OF LEFT FIBULA, SUBSEQUENT ENCOUNTER FOR CLOSED FRACTURE WITH ROUTINE HEALING 02/15/[address] active 10 UNSPECIFIED VIRAL HEPATITIS C WITHOUT HEPATIC COMA 02/15/[address] active 11 UNSTEADINESS ON FEET 02/15/[address] active 12 WEAKNESS 02/15/[address] active Reason for Referral No Reasons for Referral Entered Social History Social History Observation Description Start Date End Date Code Code System Current Smoking Status Tobacco smoking consumption unknown 310394770 SNOMED CT Sex Assigned At Male 1965 74630-9 [facility] Vital Signs Code Code System Vitals Name Values and Units Timing Information 24576-7 [facility] Pain Level Value=0.0 03/09/2022 06655-8 [facility] Weight Mwjzz=218.0 Units=Lbs 9279-1 [facility] Respiratory Rate Value=16.0 Units=/m in 02/19/2022 8462-4 [facility] Blood Pressure-Diastolic Value=85 Un its=mmHg 02/19/2022 8480-6 [facility] Blood Pressure-Systolic Amsqz=936 Un its=mmHg 02/19/2022 8310-5 [facility] Body Temperature Value=97.8 Units=?? F 02/19/2022 8867-4 [facility] Heart rate Value=75.0 Units=/min 08/2022 35340-4 [facility] O2 % dC Oximetry Value=96.0 Units= % 02/19/2022
--- OUTSIDE RECORDS SUMMARY | 2024-11-28 08:59 | XMS_ITS | Data Portability ---
Author Organization [facility], Main Office Address [address] [facility], [address] [place] [address] Care Team Providers [employer] Driver Name Role Phone BRENDAN HOLLINGSWORTH - 2ND FLOOR OTHER Assessment Encounter Date Assessment Date Assessment LastModified by Organization Details LastModified Time 09/18/2023 09/18/2023 45 minutes spent on coordination of discharge. [email or web address] Not available 09/18/2023 09:47:05 Plan of Treatment [...] and Address Organization Details Recorded Time Asthenia 77971652 Active 2022 MAURO DUFFY NP [address] [facility], [address], [place], [address], [facility] 3 12:08:07 Moderate protein-calori e malnutrition (weight for age 60-74 percent of standard) 220087401 Active 2022 MAURO DUFFY NP [address] [facility], [address], [place], [address], [facility] 3 12:08:23 Pneumonia 395672016 Active 2022 MAURO DUFFY NP [address] [facility], [address], [place], [address], [facility] 3 12:08:31 Pleural effusion 80389719 Active 2022 MAURO DUFFY NP [address] [facility], [address], [place], [address], [facility] 3 12:08:59 Hypertensive disorder 21447692 Active 2022 MAURO DUFFY NP [address], [address], [place], [address], [facility] 3 12:09:07 Human immunodeficien cy virus infection 17197944 Active 2022 MAURO DUFFY NP [address], [address], [place], [address], [facility] 3 12:09:12 Viral hepatitis C 83914981 Active 2022 MAURO DUFFY NP [address], [address], [place], [address], [facility] 3 12:09:28 Mixed anxiety and depressive disorder 597197258 Active 2022 MAURO DUFFY NP [address], [address], [place], [address], [facility] 3 12:09:40 Asthma 637233211 Active 2022 MAURO DUFFY NP [address], [place], [address], [facility] 3 12:09:56 Acute dermatitis 32861102 Active 2022 MAURO DUFFY NP [address], [address], [place], [address], [facility] 3 12:14:27 Migraine 48645657 Active 2022 MAURO DUFFY NP [address], [address], [place], [address], [facility] 3 12:25:08 Non-traumatic rhabdomyolysis 633014027 Active 2022 Leilani Romeo MD [address], [address], [place], [address], [facility] 3 10:08:19 Moderate persistent asthma 033403107 Active 2022 Leilani Romeo MD [address], [address], [place], [address], [facility] 3 10:18:10 Insomnia 875581066 Active 2022 Leilani Romeo MD [address], [address], [place], [address], [facility] 3 10:19:09 Polysubstance abuse 409491743 Active 2022 Leilani Romeo MD [address], [address], [place], [address], [facility] 3 10:19:11 Adult failure to thrive syndrome 160529812 Active 2022 Maryjane Glover NP [address], [address], [place], [address], [facility] 3 13:27:15 Anemia 436010655 Active 2022 Maryjane Glover NP [address], [address], [place], [address], [facility] 3 13:30:43 Dysphagia 55043261 Active 2022 Leilani Romeo MD [address], [address], [place], [address], [facility] 3 20:51:38 Gastroesophage al reflux disease without esophagitis 473106861 Active 2022 Leilani Romeo MD [address], [address], [place], [address], [facility] 3 20:54:24 Chronic pain 61970801 Active 2022 Leilani Romeo MD [address], [address], [place], [address], [facility] 3 20:55:56 Problem Notes None recorded. Medical Equipment None Reported. Allergies Allergen ID Allergen Name Allergen Category Reaction Reaction Severity Criticality Documentation Date Start Date Code Code System Note Provider Name and Address Organization Details Recorded Time 05512 codeine medicatio n Not available Not available Not available 01/17/2023 2670 RxNorm rash Not Available Not Available Not Available 92608 Levaquin medicatio n Not available Not available Not available 01/17/2023 24326 2 RxNorm rash Not Available Not Available Not Available 18542 Reglan medicatio n Not available Not available Not available 01/17/2023 9230 RxNorm rash Not Available Not Available Not Available 97036 ibuprofen medicatio n Not available Not available Not available 01/17/2023 5640 RxNorm reflu x Not Available Not Available Not Available 87549 Product containin g penicilli n (product) medicatio n Not available Not available Not available 01/17/2023 67550 8001 SNOMED rash Not Available Not Available Not Available 21996 Ultram medicatio n Not available Not available Not available 01/17/2023 83473 6 RxNorm N/V Not Available Not Available Not Available 06344 acetamino phen medicatio n other Not available unabletoasse ss 08/03/2023 161 RxNorm unkno wn Not Available Not Available Not Available 41223 [employer] environme nt,medica tion other Not available unabletoasse 08/03/2023 95320 6 RxNorm unkno wn Not Available Not [...] Details Last Updated DateTime 3 167.64 cm 01202.5 4 g 17.4 kg/m2 86 /min 18 /min 97.6 [degF] 91 % 91 % 115 mm[Hg] 68 mm[Hg] Maryjane Glover NP [address] [facility], [address], [place], [address], [place] [facility] 3 11:08:33 Date Recorded Body height Body weight Heart rate Respiratory rate Body temperature Oxygen saturation Oxygen saturation in Arterial blood by Pulse oximetry Systolic blood pressure Diastolic blood pressure Provider Name and Address Organization Details Last Updated DateTime 3 167.64 cm 65145.5 4 g 72 /min 18 /min 97.1 [degF] 96 % 96 % 115 mm[Hg] 68 mm[Hg] Maryjane Glover NP [address] [facility], [address], [place], [address], [facility] 3 13:10:32 Date Recorded Body height Body mass index (BMI) Body weight Heart rate Systolic blood pressure Diastolic blood pressure Provider Name and Address Organization Details Last Updated DateTime 3 167.64 cm 17.3 kg/m2 45568.3 8 g 74 /min 133 mm[Hg] 85 mm[Hg] Dilia Gonzalez [address] [facility], [address], [place], [address], [facility] 3 13:13:45 Date Recorded Body height Body weight Heart rate Respiratory rate Body temperature Oxygen saturation Oxygen saturation in Arterial blood by Pulse oximetry Systolic blood pressure Diastolic blood pressure Provider Name and Address Organization Details Last Updated DateTime 4 167.64 cm 26253.5 4 g 88 /min 18 /min 97.6 [degF] 96 % 96 % 133 mm[Hg] 85 mm[Hg] Maryjane Glover NP [address] [facility], [address], [place], [address], [facility] 4 19:10:48 Date Recorded Body height Heart rate Respiratory rate Body temperature Oxygen saturation Oxygen saturation in Arterial blood by Pulse oximetry Systolic blood pressure Diastolic blood pressure Provider Name and Address Organization Details Last Updated DateTime 4 167.64 cm 84 /min 18 /min 97.5 [degF] 98 % 98 % 133 mm[Hg] 85 mm[Hg] MAURO DUFFY NP [address] [facility], [address], [place], [address], [facility] 4 08:57:54 Social History Question Answer Notes LastModified by Organizat ion Details LastModified Time Tobacco Smoking Status Never Smoker MAURO DUFFY NP [address] [facility], [address], [place], [address], [facility] 01/17/2023 11:35:26 Do You Have An Advance Directive? Yes [email or web address] Information not available 01/17/2023 What Is Your Level Of Alcohol Consumption? None Information not available 01/17/2023 What Is Your Code Status? Full Code [email or web address] Information not available 01/17/2023 Where Do You Live? Apartment With Elevator, Family Near By, Helpful Information not available 01/17/2023 What Was The Date Of Your Most Recent Tobacco Screening? 08/03/2023 Information not available 08/03/2023 Do You Use Any Illicit Or Recreational Drugs? No Noted Past Use Cocaine Information not available 08/03/2023 Has Tobacco Cessation Counseling Been Provided? No [email or web address] Information not available 01/17/2023 Do You Or Have You Ever Used Any Other Forms Of Tobacco Or Nicotine? No [email or web address] Information not available 01/17/2023 Sex: Unknown Functional Status None recorded. Mental Status None recorded. Family History Relationship Description Onset Age of this Age Resolved Age Notes LastModified by Organization Details LastModified Time Mother Malignant tumor of lung Not available 2022 11:34:21 Medical History No medical history recorded. Immunizations Vaccine Type Date Status Note Provider Nam e and Address Organization Details Recorded Time COVID-19, mRNA, LNP-S, bivalent, PF, 50 mcg/0.5 mL or 25mcg/0.25 mL dose 2 [facility] 13:44:56 COVID-19, mRNA, LNP-S, bivalent, PF, 50 mcg/0.5 mL or 25mcg/0.25 mL dose 3 [facility]23 13:45:39 Pneumococcal conjugate PCV20, polysaccharide CVR083 conjugate, adjuvant, PF 3 completed Asia juarez [facility] 09/11/2023 13:46:16 Influenza, adjuvanted, quadrivalent, PF 3 completed Asia juarez [facility] 09/11/2023 13:46:36 Influenza, adjuvanted, quadrivalent, PF 2 completed Asia juarez [facility] 10/24/2023 13:13:32 Past Encounters Encounter ID Performer Location Encounter Start Date Encounter Closed Date Diagnosis/Indication Diagnosis SNOMED-CT Code Diagnosis ICD10 Code Diagnosis Note [id number] MAURO DUFFY NP [address] [address] 01/17/2023 11:16:19 01/22/2023 12:34:21 Pleural effusion 32624479 J90 and empyema, resp. failures/p L chest tube, intubation Clinically improved.M onitor VS, sats, LS, CP status closely for decompensa tion Pneumonia 216075725 J18. 9 Treated with IV zosyn in hosp.Clini lesly improved.A s above, monitlr VS, sats, LS, CP status closely Asthenia 62296698 R53.1 PT OT eval and tx. Moderate protein-calorie malnutrition (weight for age 60-74 percent of standard) 255857457 E44.0 Started supplement s in hosp.Refer to mother helper here.Seen by in hosp, diet changed to chopped/ad vanced consistenc yOn reg. diet here, doing well. Refer to rehab to try to get bedside FEES testing Hypertensive disorder 38 525443 I10 On norvasc 5 mg dailyPropr anolol ER held in hosp., instructed to resume 03/09, unclear as to why held or if used for something else?Monio r VS, adjust meds prn Human immunodeficiency virus infection 54042141 B20 Continue biktarvy Mixed anxi ety and depressive disorder 867578095 F41.8 Continue home meds:clona zepam 1 mg daily? risperdal 2 mg HSremeron 60 mg HSMonitor mood, behaviors for changePsyc h eval prn Asthma 451529312 J45.90 9 Continue flovent bidMonitor resp. status for change Acute dermatitis 1015415 6 L30.9 bilat. groin, fungalstar t nystatin cream or powder bid x 14 days or until clearmonit or Migraine 93370132 G43.90 9 Continue home meds:Celeb monica 200 mg bidgabapen tin 600 mg tidibuprof en 800 mg q8 hr prnultram 50 daily prn? clonazepam 1 mg daily? risperdal 2 mg HS? propranolo l Er 120 mg daily - held in hosp - cont. to hold here, [facility] date [facility] 03/09 [id number] Kenia Michaels MD [address] [address] 01/19/2023 07:22:18 01/22/2023 15:16:30 Pneumonia 729971275 J15.8 antibiotic s completeds /p empyema, respirator y failure, intubation will monitor Asthenia 59944477 R53.1 PT/OTwill monitor Human immunodeficiency virus infection 23028931 B20 Biktarvy 50-200-25 dailyfu I.D. Essential hypertension 09640436 I10 amlodipine 5 mg dailywill monitor Mixed anxi ety and depressive disorder 669050961 F41.8 gabapentin 600 mg tidmirtaza pine 60 mg at hsrisperid one 2 mg at hsclonazep am 1 mg dailywill monitor Gastroesop hageal reflux disease without esophagitis 400360579 K21.9 pantoprazo le 40 mg dailywill monitor Chronic pain 18363082 G8 9.29 gabapentin 600 mg tidhospita l discharge notes include:ce lecoxib 200 m bid, ibuprofen 800 mg q8h prn, tramadol 50 mg daily prnwill monitor and consider if needed [id number] Panchito Morales NP [facility] on [address] [place] [address] 06/30/2023 08:20:37 07/03/2023 11:44:52 Human immunodeficiency virus infection 65474368 B20 06/30/23mo nitorID consult as indicated- biktarvy (bictegrav ir, emtricitab ine & tenofovir alafenamid e) 50-200-25m g QD Hypertensive disorder 38 003964 I10 06/30/23mo nitorcards FU PRNavoid beta barb with HX of cocaine abuse-amlo dipine 5mg QD Mixed anxi ety and depressive disorder 554276969 F41.8 06/30/23mo nitorpsych consult PRN-risper idone 3mg QHS Viral hepatitis C 504291 07 B19.20 10/21/23mo nitor [id number] Leilani Levheim, MD [facility] on [address] [place] [address] 07/02/2023 17:00:01 07/12/2023 14:37:46 Human immunodeficiency virus infection 92124079 B20 Non-detect able on last checkConti nue biktarvy (bictegrav ir, emtricitab ine & tenofovir alafenamid e) 50-200-25m g QDF/U with ID as planned. Hypertensive disorder 38 995713 I10 BP good since here.Sam nue amlodipine 5 mg qdMonitor BP and labs. Mixed anxi ety and depressive disorder 739708848 F41.8 Mood stable.Con tinue risperidon e 3 mg qhs, mirtazapin e 30 mg qhs, and clonazepam 1 mg qd.Monitor mood.Psych consult prn. Viral hepatitis C 152964 07 B18.2 Unclear hx.LFTs WNL.F/U as outpt. Acute chest pain 1814742 01 R07.89 Per cardio not ACS.Monito r sxs.F/U with cardio prn. Non-trauma tic rhabdomyolysis 156353966 M62.82 CPK trended down inpt.No need to monitor further. Moderate p ersistent asthma 541620830 J45.40 No SOB or hypoxia, but with junky cough as above.Cont inue Advair 230/21 two puffs BID, Flovent 2 puffs BID, and albuterol/ budesonide 2 puffs q 6 hrs prn.Monito r resp status. Polysubstance abuse 4452 33057 F19.10 Most often cocaine, but sometimes other things.Con tinue SUDs counseling while here and encourage abstinence and outpt f/u. Cough 19881443 R05.8 Sounds junky, but pt says it feels like tickle in throat. Maybe post nasal drip.Lungs clear, but still could be early PNA.Will start Robitussin DM 10 ml q 4 hrs prn and get CXR tomorrow.M onitor resp status. Insomnia 496329298 G47.0 9 Will try melatonin 5 mg qhs.Monito r sleep patterns. [id number] MIGUEL BROWN [facility] on [address] [place] [address] 07/05/2023 08:16:20 07/12/2023 16:01:31 Mixed anxiety and depressive disorder 004688156 F41.8 07/05: his mood is stablecont inue:clona zepam 1 mg dailyrispe ridone 3 mg daily at bedtime.Mi rtazapine 30 mg at bedtime daily.tu tonin 5 mg at bedtime daily Cough 88297927 R05.8 07/05: non productive upper airway congested coughThere is no SOB. LS are clearCXR completed; no active pulmonary infiltrate s or pleural effusions seen.Erna ussin DM 10 ml q 4 hrs prn- will scheduled for a few days, does not look like he requested prn.Monito r resp status. Polysubstance abuse 4452 55667 F19.10 Most often cocaine, but sometimes other things.Con tinue SUDs counseling while here and encourage abstinence and outpt f/u. [id number] MIGUEL BROWN [facility] on [address] [place] [address] 07/06/2023 09:35:29 07/12/2023 16:16:45 Mixed anxiety and depressive disorder 325499581 F41.8 continue:c lonazepam 1 mg dailyrispe ridone 3 mg daily at bedtime.Mi rtazapine 30 mg at bedtime daily.tu tonin 5 mg at bedtime dailyfollo w up with outpatient PCP. Cough 99473109 R05.8 CXR on 07/03/23 negative for any acute process.Ro bitussin DM 10 ml q 4 hrs prnfollow up with outpatient PCP. Acute dermatitis 4685175 6 L30.9 continueny statin cream BID as needed until clearedfol low up with outpatient PCP. Asthma 981076806 J45.90 9 Advair 230/21 two puffs BID,Floven t 2 puffs BID, andalbuter ol/budeson kentrell 2 puffs q 6 hrs prn.follow up with outpatient PCP. Human immunodeficiency virus infection 12559996 B20 Continue biktarvy (bictegrav ir, emtricitab ine & tenofovir alafenamid e) 50-200-25m g QD Hypertensive disorder 38 916218 I10 Continue amlodipine 5 mg qdfollow up outpatient Insomnia 449370764 G47.0 9 melatonin 5 mg at bedtime Migraine 43119718 G43.90 9 Continue home meds: Celebrex 200 mg bid gabapentin 600 mg tid ibuprofen 800 mg q8 hr prn ultram 50 daily prn clonazepam 1 mg daily risperdal 3 mg HS follow up with PCP Viral hepatitis C 014352 B18.2 follow labs outpatient follow up with outpatient pcp. [id number] Maryjane Glover NP [facility] [address] [place] [address] 08/03/2023 12:58:35 08/08/2023 10:07:33 Human immunodeficiency virus infection 87769274 B20 ID consult prnbiktarv y (bictegrav ir, emtricitab ine & tenofovir alafenamid e) 50-200-25m g QD Asthenia 91898521 R53.1 PT/OT treat and evalwill monitor Essential hypertension 25547105 I10 amlodipine 5 mg dailywill monitor Mixed anxi ety and depressive disorder 626969171 F41.8 gabapentin 600 mg tidmirtaza pine 60 mg at hsrisperid one 3 mg at hsclonazep am 1 mg dailypsych prnwill monitor Gastroesop hageal reflux disease without esophagitis 946276974 K21.9 With recent workup in hosp and PEG placed.use G tube for feedings/m edswill monitor Chronic pain 48379760 G8 9.29 gabapentin 600 mg tidtramado l 50 mg prn dailymulti ple allergies notedwill monitor and consider if needed Polysubstance abuse 4452 90758 F19.10 Most often cocaine per hx with overdoses notedConti nue counseling while here and encourage abstinence and outpt f/u. Asthma 947573395 J45.90 9 advair 2 puff bidalbuter ol 2 puffs q 6 hours prn wheezingMo nitor resp. status for change Viral hepatitis C 208685 B18.2 fu with labscurren tly stable liver enzymesmon itor Moderate protein-calorie malnutrition (weight for age 60-74 percent of standard) 309577616 E44.0 now on PEG tube with feedings at 60cc/hrRef er to mother helper here.Seen by in hosp, unclear why he has dysphagia and difficulty eating with workup including EGD at [facility] eval and treat here to see if he can take po intakemoni tor Anemia 972368326 D64.9 ferrous gluconate 324 dailymonit or cbc weekly Adult fail ure to thrive syndrome 199121754 R62.7 g tube feedings and meds through g tube at 60cc/hrfai lure to thrive with supplement s in [facility] to eval and treat, consider reintroduc ing foods when ableweight s weeklymoni tor Insomnia 825943103 G47.0 9 benedryl 25 mg qhsmonitor [id number] Leilani Romeo MD [address] [address] 08/06/2023 16:28:34 08/08/2023 11:16:44 Adult failure to thrive syndrome 521335684 R62.7 With marked wt. loss over past few months.Mehrdad barr Jevity 1.0 or 1.2 tanya/ml at 60 ml/hr.Stil l unable to swallow, unknown reason.Mehrdad barr DIRECTOR CONSUMER interventi ons to hopefully enable him to eat again.Cait tor wts and labs. Moderate protein-calorie malnutrition (weight for age 60-74 percent of standard) 027125510 E44.0 As above. Human immunodeficiency virus infection 78513882 B20 Last labs show zero viral load.Sam nue Biktarvy (bictegrav ir, emtricitab ine & tenofovir alafenamid e) 50-200-25m g QDF/U with ID as planned. Asthenia 93149881 R53.1 Very deconditio armen.Needs PT/OT for strengthen ing, balance, gait training, safety and function.C ontinue fall precaution s.Monitor for safety. Essential hypertension 46663723 I10 BP running low since here, should improve as nutritiona l status improves.C ontinue amlodipine 5 mg qdMonitor BP and labs. Gastroesop hageal reflux disease without esophagitis 790711285 K21.9 On no meds.I wonder if starting a PPI may help with throat pain?Monit or Chronic pain 84123863 G8 9.29 No c/o tonight.Co ntinue gabapentin 600 mg TID and tramadol 50 mg qd prnMonitor sxs. Asthma 799002289 J45.30 Asthma meds transcribe d incorrectl y on admission here.Was not put on Advair, but rather only albuterol/ budesonide prn.Will restart Advair 230/21 mcg two puffs BIDMonitor resp. status Anemia 116223272 D64.89 Not currently anemic.Con tinue ferrous gluconate 324 mg qdMonitor labs Mixed anxi ety and depressive disorder 079613135 F41.8 Mood stable.Con tinue risperidon e 3 mg qhs, mirtazapin e 60 mg qhs, and clonazepam 1 mg qd.Monitor mood.Psych consult prn. Viral hepatitis C 196227 07 B18.2 Unclear hx.LFTs WNL.F/U as outpt. Polysubstance abuse 4452 74523 F19.10 Most often cocaine, but sometimes other things.Con momo counseling and encourage abstinence and outpt f/u. Dysphagia 29123771 R13.1 9 Unknown etiology.C ontinue G-tube feeding as above.Cons ider ENT consult. [id number] Maryjane Glover, LADAN [address] [address] 08/16/2023 12:26:03 08/22/2023 11:29:11 Adult failure to thrive syndrome 889391624 R62.7 With marked wt. loss over past few months.Con tinueJevit y 1.5 tanya/ml at 60 ml/hr. mother helper following and will adjust as neededStil l unable to swallow, unknown reason.Con momo DIRECTOR CONSUMER interventi ons to hopefully enable him to eat again.Cait tor wts and labs. Dysphagia 08009402 R13.1 9 Unknown etiology.C ontinue G-tube feeding as above.Cons ider ENT consult. Moderate protein-calorie malnutrition (weight for age 60-74 percent of standard) 019436300 E44.0 As above. Human immunodeficiency virus infection 37645125 B20 Last labs show zero viral load.Sam nueBiktarv y (bictegrav ir, emtricitab ine & tenofovir alafenamid e) 50-200-25m g QDF/U with ID as planned. Asthenia 21761359 R53.1 Very deconditio armen.Needs PT/OT for strengthen ing, balance, gait training, safety and function.C ontinue fall precaution s.Monitor for safety. Essential hypertension 01394116 I10 BP running low since here, should improve as nutritiona l status improves.a mlodipine 5 mg qdMonitor BP and labs. Gastroesop hageal reflux disease without esophagitis 230119458 K21.9 no meds.Monit or Chronic pain 44788460 G8 9.29 has mild headache todayConti nuegabapen tin 600 mg TIDtramado l 50 mg qd prnMonitor sxs. Asthma 442124103 J45.30 Asthma meds transcribe d incorrectl y on admission here.albut maddi/budes onide prn.Advair 230/21 mcg two puffs BIDMonitor resp. status Anemia 262835880 D64.89 Not currently anemic.juan carlos scales order cbc and bmp weekly [id number] gluconate 324 mg qdMonitor labs Mixed anxi ety and depressive disorder 654365121 F41.8 Mood stable.ris peridone 3 mg qhsmirtaza pine 60 mg qhs,clonaz epam 1 mg qd.Monitor mood.Psych consult prn. Viral hepatitis C 698960 07 B18.2 Unclear hx.LFTs WNL.F/U as outpt. Polysubstance abuse 4452 40791 F19.10 Most often cocaine, but sometimes other things.Mehrdad barr counseling and encourage abstinence and outpt f/u. [id number] Maryjane Glover NP [address] [address] 08/22/2023 11:06:38 08/28/2023 14:23:57 Adult failure to thrive syndrome 445417609 R62.7 With marked wt. loss over past few months.Con tinueJevit y 1.2 tanya/ml at 67ml/hr. mother helper following and will adjust as neededStil l unable to swallow, unknown reason.Mehrdad barr DIRECTOR CONSUMER interventi ons to hopefully enable him to eat again.Cait tor wts and labs.08/22 mother helper to assess if bolus feedings can be attempted for homefamily /pt needs g tube care/teach ing for ? dc homemonito r Asthenia 18753435 R53.1 Very deconditio armen, improving every week with therapyNee ds PT/OT for strengthen ing, balance, gait training, safety and function.C ontinue fall precaution s.Monitor for safety. Dysphagia 22124422 R13.1 9 Unknown etiology.C ontinue G-tube feeding as above.Cons ider ENT consult. Anemia 673178729 D64.89 Not currently anemic.juan carlos l order cbc and bmp weekly [id number] gluconate 324 mg qdMonitor labs Moderate protein-calorie malnutrition (weight for age 60-74 percent of standard) 342264497 E44.0 As above. Human immunodeficiency virus infection 06618668 B20 ContinueBi ktarvy (bictegrav ir, emtricitab ine & tenofovir alafenamid e) 50-200-25m g QDF/U with ID as planned. Essential hypertension 80305171 I10 BP now improving as nutritiona l status improves.1 10s-130s /60scontam lodipine 5 mg qdMonitor BP and labs. Gastroesop hageal reflux disease without esophagitis 441094058 K21.9 no meds.Monit or Chronic pain 88025718 G8 9.29 headache resolvedCo ntinuegaba pentin 600 mg TID, no pain todaytrama dol 50 mg qd prnMonitor sxs. Asthma 568265387 J45.30 Asthma meds transcribe d incorrectl y on admission here.albut maddi/budes onide prn.Advair 230/21 mcg two puffs BIDMonitor resp. status Mixed anxi ety and depressive disorder [id number] F41.8 Mood stable and ding wellrisper idone 3 mg qhsmirtaza pine 60 mg qhs,clonaz epam 1 mg qd.Monitor mood.Psych consult prn. [id number] Maryjane Glover NP [address] [address] 08/29/2023 08:14:48 08/30/2023 19:42:34 Adult failure to thrive syndrome [id number] R62.7 With marked wt. loss over past few months.Con tinueJevit y 1.2 tanya/ml at 67ml/hr. mother helper following and will adjust as neededStil l unable to swallow, unknown reason.per speech eval: no eating or drinkingMo nitor wts and labs.08/22 mother helper to assess if bolus feedings can be attempted for homefamily /pt needs g tube care/teach ing for ? dc homemonito r1/ awaiting mother helper to calculate gtube feedings and start Asthenia 80518073 R53.1 Very deconditio armen, improving every week with therapyNee ds PT/OT for strengthen ing, balance, gait training, safety and function.C ontinue fall precaution s.Monitor for safety. Dysphagia 14225314 R13.1 9 Unknown etiology.C ontinue G-tube feeding as above.Cons ider ENT consult. Anemia 247902485 D64.89 Not currently anemic.juan carlos l order cbc and bmp prn, labs stableferr ous gluconate 324 mg qdMonitor labs Moderate protein-calorie malnutrition (weight for age 60-74 percent of standard) 667904590 E44.0 As above. Human immunodeficiency virus infection 54530887 B20 ContinueBi ktarvy (bictegrav ir, emtricitab ine & tenofovir alafenamid e) 50-200-25m g QDF/U with ID as planned. Essential hypertension 94214750 I10 BP now improving as nutritiona l status improves.1 conta mlodipine 5 mg qdMonitor BP and labs. Gastroesop hageal reflux disease without esophagitis 915374845 K21.9 no meds.Monit or Chronic pain 48187919 G8 9.29 headache resolvedCo ntinuegaba pentin 600 mg TID, no pain todaytrama dol 50 mg qd prnMonitor sxs. Asthma 972428781 J45.30 Asthma meds transcribe d incorrectl y on admission here.albut maddi/budes onide prn.Advair 230/21 mcg two puffs BIDMonitor resp. status Mixed anxi ety and depressive disorder 819992202 F41.8 Mood stable and ding wellrisper idone 3 mg qhsmirtaza pine 60 mg qhs,clonaz epam 1 mg qd.Monitor mood.Psych consult prn. Neck pain 39249393 M54.2 incidental neck pain, states slept on it wrongnsg giving tyl, tramadol and gabapentin reposition neckmonito r for relief [id number] Dilia SchwarzGino Hutchinson [address] [place] [address] 09/07/2023 05:15:43 09/13/2023 10:39:11 Adult failure to thrive syndrome 120236316 R62.7 With marked wt. loss over past few months.Con tinueJevit y 1.2 tanya/ml at 67ml/hr. mother helper following and will adjust as neededStil l unable to swallow, unknown reason.Mehrdad barr DIRECTOR CONSUMER interventi ons to hopefully enable him to eat again.Cait tor wts and labs.recei deborah education on gt feeds, SW working on VNA set up for [facility] site daily with NS and dry. apply 2x2 to sitemonito r Asthenia 70087410 R53.1 Very deconditio armen, improving every week with therapyNee ds PT/OT for strengthen ing, balance, gait training, safety and function.C ontinue fall precaution s.Monitor for safety. Dysphagia 04877095 R13.1 9 Unknown etiology.C ontinue G-tube feeding as above.Cons ider ENT consult. Anemia 804519209 D64.89 Not currently anemic.juan carlos l order cbc and bmp weekly y1gcwznon gluconate 324 mg qdMonitor labs Moderate protein-calorie malnutrition (weight for age 60-74 percent of standard) 505360193 E44.0 As above. Human immunodeficiency virus infection 94955677 B20 ContinueBi ktarvy (bictegrav ir, emtricitab ine & tenofovir alafenamid e) 50-200-25m g QDF/U with ID as planned. Essential hypertension 71284899 I10 BP now improving as nutritiona l status improves.1 10s-130s /60scontam lodipine 5 mg qdMonitor BP and labs. Gastroesop hageal reflux disease without esophagitis 539970251 K21.9 no meds.Monit or Chronic pain 03091143 G8 9.29 headache resolvedCo ntinuegaba pentin 600 mg TID, no pain todaytrama dol 50 mg qd prnMonitor sxs. Asthma 137129718 J45.30 Asthma meds transcribe d incorrectl y on admission here.albut maddi/budes onide prn.Advair 230/21 mcg two puffs BIDMonitor resp. status Mixed anxi ety and depressive disorder 668588888 F41.8 Mood stable and ding wellrisper idone 3 mg qhsmirtaza pine 60 mg qhs,clonaz epam 1 mg qd.Monitor mood.Psych consult prn. [id number] Maryjane Glover, [facility] [address] [place] [address] 09/12/2023 18:08:08 09/14/2023 11:17:17 Adult failure to thrive syndrome 608167985 R62.7 With marked wt. loss over past [...] dry. apply 2x2 to sitemonito r Asthenia 20515714 R53.1 Very deconditio armen, improving every week with therapyNee ds PT/OT for strengthen ing, balance, gait training, safety and function.C ontinue fall precaution s.Monitor for safety. Dysphagia 85426334 R13.1 9 Unknown etiology.C ontinue G-tube bolus feeding as above.FEES test on Sundayne s cxr to rule out pna from foods and drinks in room despite recommenda tionConsid er ENT consult. Moderate protein-calorie malnutrition (weight for age 60-74 percent of standard) 518270966 E44.0 As above. Human immunodeficiency virus infection 99150233 B20 ContinueBi ktarvy (bictegrav ir, emtricitab ine & tenofovir alafenamid e) 50-200-25m g QDF/U with ID as planned. Essential hypertension 09036968 I10 BP now improving as nutritiona l status improves.1 10s-130s /60scontam lodipine 5 mg qdMonitor BP and labs. Asthma 288491478 J45.30 no wheezing noted on exam, stablealbu terol/bude sonide prn.Advair 230/21 mcg two puffs BIDMonitor resp. status Mixed anxi ety and depressive disorder 458732190 F41.8 Mood stable and ding wellrisper idone 3 mg qhsmirtaza pine 60 mg qhs,clonaz epam 1 mg qd.Monitor mood.Psych consult prn. [id number] MAURO DUFFY [facility] [facility] [place] [place] [address] 09/18/2023 08:57:08 09/25/2023 10:49:09 Adult failure to thrive syndrome 944663829 R62.7 With marked wt. loss over past few months due to difficulty swallowing .G tube placed 07/30/23 at [facility].Contin ue osmolite 1.2 tanya/ml 410 cc qid bolus tube feedings upon d/c home.Seen by DIRECTOR CONSUMER - now on puree diet with thin liquids - may continue at homeContin ue to monitor weights and intake at home Asthenia 41763768 R53.1 Improved, meeting rehab goals for d/c home today with support of services.C ontinue fall precaution s.Monitor for safety as outpt. Dysphagia 81242621 R13.1 9 Unknown etiology.S ee above.[facility] [facility] w on pureed diet, thin liquidsMon itor intake, s/s aspiration as outpt. Moderate protein-calorie malnutrition (weight for age 60-74 percent of standard) 506368356 E44.0 As above. Human immunodeficiency virus infection 58595948 B20 ContinueBi ktarvy (bictegrav ir, emtricitab ine & tenofovir alafenamid e) 50-200-25m g QDF/U with ID as planned. Essential hypertension 71873099 I10 continue amlodipine 5 mg qdMonitor BP as outpt. Asthma 209777132 J45.30 no wheezing noted on exam, stablecont inue Advair 230/21 mcg two puffs BID and albuterol/ budesonide prn.Monito r resp. status as outpt. Mixed anxi ety and depressive disorder 908270507 F41.8 Mood stable and doing wellContin ue home medsrisper idone 3 mg qhsmirtaza pine 60 mg qhsclonaze david 1 mg qdMonitor mood, behaviors as outpt. Chronic pain 27052043 G8 9.29 continue gabapentin 600 mg tid, ultram 50 mg qd prnmonitor asoutpt. Anemia 728083151 D64.89 remains on daily FeMonitor CBC,s/s active bleeding Health Concerns Section Related Observation LastModified by Organization Detai ls LastModified Time None Recorded Concern Status LastModified by Organization Details LastModified Time None Recorded Advance Directives Directive Y: Payers Encounter Date Sequence Insurance Name Policy Number Policy Perry Covered Member ID Perry Member ID Guarantor Name 08/22/2023 1 [employer] [facility] - DOS ON OR AFTER 2022 - [place]IC[place]/ADV ANTAGE - PPO) [facility] [id number] [facility] 08/29/2023 1 [employer] [facility] - DOS ON OR AFTER 2022 - [place]/ADV ANTAGE - PPO) [facility] [id number] [facility] 09/07/2023 1 [employer] - DOS ON OR AFTER 2022 - [place]/ADV ANTAGE - PPO) [facility] Fall [id number] [facility] 09/12/2023 1 [employer] - DOS ON OR AFTER 2022 - [place]/ADV ANTAGE - PPO) [facility] [id number] [facility] 09/18/2023 1 [employer] - DOS ON OR AFTER 2022 - [place] RE[place]EMENT/ADV ANTAGE - PPO) [facility] Fall [id number] [facility] Notes Date Note Type Note [...] other concerns. Note: He was admitted to [facility] ED for similar concerns earlier this month [...] code signed 01/17/23 Maryjane Glover NP [address] [facility], [address], [place], [address], [facility] 08/22/2023 11:24:08 08/29/2023 text/html Patient seen for an 30 routine rounding visit. Past medical history significant for HIV, history of hep C, depression, asthma, history lung abscess 2020, fall, several overdoses noted in hx. dysphagia seen for difficulty swallowing ultimately diagnosed with failure to thrive and PEG tube placed. Benjamin was admitted to [facility] ED for difficulty swallowing and underwent EGD [...] from hospital to rehab. While here at [facility]: Pt is 107.6 lbs and this [...] disconnect his feedings without difficulty here. Awaiting mother helper to calculate bolus feedings and start them [...] code signed 01/17/23 Maryjane Glover NP [address] [facility], [address], [place], [address], [facility] 08/29/2023 13:39:07 09/07/2023 text/html Patient seen for [...] other concerns. Note: He was admitted to [facility] ED for similar concerns earlier this month [...] code signed 01/17/23 Dilia Michelle lloyd [address] [facility], [address], [place], [address], [employer] 09/07/2023 13:21:25 09/12/2023 text/html Patient seen for [...] code signed 01/17/23 Maryjane Glover NP [address] [facility], [address], [place], [address], [employer] 09/12/2023 19:33:00 09/18/2023 text/html Benjamin is seen t heidy for discharge. He is going home today with support of services. He is a 58 yo man admitted to [facility] 08/02/23 from [facility] for continued care and rehab after a hospitalization related to malnutrition and FTT.He presented to [facility] 07/27 reporting throat pain and the inability to swallow.Swallowing issues problematic prior to this presentation, had EGD with Dr. Dodson 07/17, results c/w mild candidiasis normal stomach and duodenum. He was also seen by DIRECTOR CONSUMER, diet changed to NND1 and nectar thick liquid. Due to ongoing swallowing issues at home, he returned to [facility] ER.A g-tube was placed on 07/30, cause of dysphagia unclear. Kept NPO, and sent here for rehab. While here, Benjamin has done well.Worked with PT/OT, meeting goals for d/c home.Also worked with DIRECTOR CONSUMER and mother helper - now tolerating puree diet with thin [...] also, possibly inadvertently). MAURO DUFFY NP [address] [facility], [place], [address], [facility] 09/18/2023 09:47:21
--- OUTSIDE RECORDS SUMMARY | 2024-11-28 09:00 | XMS_ITS | Clinical Summary ---
Author Organization [facility] Address [address] [place] [address] Care Team Providers Care Bathhouse Attendant Name Role Phone Zora Arce PA-C Primary Care Provider Source Comments PLEASE NOTE, if this patient [...] EC tabletIndications:H IV (human immunodeficiency virus infection) ([facility]) Take 1 Tab by mouth [...] NUTRITION) liquidIndications:H IV (human immunodeficiency virus infection) ([facility]) Take 1 Can by mouth [...] nasal sprayIndications:As thma, intermittent, uncomplicated Place 1 [place] into the nostril(s) as needed for congestion. [...] 01/27/2015 Generalized anxiety disorder 01/27/2015 Seizure disorder ([facility]) 01/27/2015 Major depressive disorder, r ecurrent, severe without psychotic features ([facility]) 01/27/2015 Overview (01/27/2015): Has therapist at [facility] HIV (human immunodeficiency virus infection) ( [facility]) 01/27/2015 Chronic back pain 01/27/2015 [...] Plan of Treatment Not on file [place] Subscriber Plan / Payer ( fective 2015-Present) Name:Benjamin Fall Relation to Subscriber:Self Name:Benjamin Fall Payer ID:[id number] Group ID:Not on file Type:Medicaid Address: [address] DENT[address] Care Teams Bathhouse Attendant Relationship Specialty Start Date End Date Zora Arce PA-C [address] [place] [address] PCP - General 11/05/18
--- OUTSIDE RECORDS SUMMARY | 2024-11-28 09:00 | XMS_ITS ---
Demographics Address [address] [facility] [place] [address] [place] [address] Preferred Language es Marital Status Unknown Caodaism Affiliation Unknown Race White Ethnic Group Not or Lati no Author Organization [facility] Address [address] [place] [address] Care Team Providers Care Lokie Driver Name Role Phone Terese Rivera Primary Care Provider Pepe Dangelo Unavailable [phone] Allergies Allergen (clinical drug ingredient) Drug/Non Drug [...] 10/09/2024 Encounters Encounter Location Date Provider Diagnosis [facility] [address] [place] [address] 10/09/2024 Pepe Stephenson Dysphagia R13.10 ; Unspecified protein-calorie malnutrition E46 and PEG (percutaneous endoscopic gastrostomy) adjustment/replacement /removal Z43.1 Assessments Encounter Date Diagnosis (ICD Code) Assessment Notes Treatment Notes Treatment Clinical Notes Section Notes 10/09/2024 Dysphagia (ICD-10 - R13.10) Once we have the results of the [facility] GI series from 10/2024 and see [...] we have the res ults of the [facility] GI series from 10/2024 and see [...] Name:Pepe Stephenson , 02/12/2025 11:00:00 AM, [address] [facility], [address], [place], [address], Progress Notes * VICKIE DUFFYDOB:1965 (59 yo M)Acc No.[id number]:10/09/2024 Progress Notes Patient:?VICKIE DUFFY Provider:?Pepe Stephenson MD :1965???Age:59 Y???Sex:Male Hansel e:10/09/2024 Address:[address] [place], [place] [id number] Pcp:Terese Keenan Subjective: * Chief Complaints: * ???Patient presents today fo r a PATIENT RECEIVED RECALL LETTER * HPI: ???incontinence:? I saw Vickie in the office today for evaluation of his previous history of dysphagia with associated weight loss and subsequent placement of a G-tube. He is accompanied by his STEREOTYPER, Good, who helped with interpreting. ?I last [...] DVTs and pulmonary emboli last Fall at [facility] and has been on Eliquis for that since early June of 2024. He is scheduled to see Dr. Wray for follow up next month. He is also scheduled for a barium swallow next month with the speech and swallowing department through [facility]. ?Vickie reports that he generally feels [...] past year??No,?Points?0,?Interpretation?Negative.?Miscellaneous:?Marital status: single. Occupation: Retired from [employer]--had worked their for 27 years. ???Nonsmoker; [...] Codes:?G9711 PT W/ DX PAST HX TOTAL COLECTOMY/[id number] TOBACCO NON- [id number] BP SCR NOT PRFRM REC REASON NOS * Preventive Medicine:? ??Screenings:?Fall Risk Screening?Fall Risk Assessment:?No falls in the past year,?Screening:?No falls in the past year,?Assessment:?Not performed, no reason specified,?Plan of Care:?Not documented, no reason specified.? * Follow Up:?January or February for o ffice Gtube removal * * Sign off status: Completed true * Provider:?Pepe Stephenson MD Date:? 025 Generated for Darryl ng/Hannah/Javier on:?11/28/2024 08:59 AM EDT History and Physical Notes * HPI (History of Present Illness) Category Sub-Category Detail Notes Category Not es incontinence I saw Vickie in the office today for evaluation of his previous history of dysphagia with associated weight loss and subsequent placement of a G-tube. He is accompanied by his STEREOTYPER, Good, who helped with interpreting. I last [...] DVTs and pulmonary emboli last Fall at [facility] and has been on Eliquis for that since early June of 2024. He is scheduled to see Dr. Wray for follow up next month. He is also scheduled for a barium swallow next month with the speech and swallowing department through [facility]. Vickie reports that he generally feels [...]
--- OUTSIDE RECORDS SUMMARY | 2024-11-28 09:00 | XMS_ITS | Continuity of Care Document ---
Author Organization [facility] ter Address [address] [place] [address]- Support Name Relationship Address Phone DUFFY, VICKIE Personal Relationship Unknown Unava ilable DUFFY, VICKIE Personal Relationship Unknown Unava ilable DUFFY, VICKIE Personal Relationship Unknown Unava ilable DUFFY, VICKIE Personal Relationship Unknown Unava ilable DAYCARE WORKER WORKER, KRISS Other Unknown Unavaila ble DUFFY, [...] Unknown Unava ilable Care Team Providers Care Chief Port Director Name Role Phone Tatiana Garrido MD Primary Care Physician [phone] Encounter [facility] Date(s): 08/04/24 - 11/27/24 [facility] [address] [place] [address]- Attending Physician: Tatiana Garrido MD Admitting Physician: Tatiana Garrido MD Referring Physician: Tatiana Garrido MD Encounter Type: Pre-Outpt Allergies, Adverse Reactions, Alerts Substance Criticality Severity [...] Refills, Maintenance, 06/27/24 2:49:00 PM EDT, Tablet, [facility], Partial fill upon patient request if [...] PM EDT, Aerosol, Route to Pharmacy Electronically, [id number], [facility], 162, cm, 06/27/24 15:12:00 EDT, Height, [...] Team Personnel Name: Vivian Fuller RN Position: [facility] RN Member Role: Primary Care Nurse Name: Tatiana Garrido MD Position: [facility] Physician - Primary Care Member Role: PCP Address: [address] [place] [address] Telecom: Name: Allison Cabrera RN Position: S [...] Team Related Persons Name: ISAAC GARCIA Name: DAYCARE WORKER KRISS HECK Name: DUFFY, ZULLY Insurance Providers Guarantor name: [facility] Health Plan Information #: 2 Payer: NA Member Number: [id number] Policy Number: NA Group Number: NA Health Plan Information #: 4 Payer: [facility] Member Number: [id number] Policy Number: NA Group Number: NA Health Plan Information #: 1 Payer: [facility] Member Number: [id number] Policy Number: NA Group Number: [employer] Health Plan Information #: 3 Payer: MEDICARE PART B OUTPT Member Number: [id number] Policy Number: NA Group Number: NA
== END 2024-11-28 09:24 | disposition home or self-care (01) ==
LOC: HO.ENCR 08:42
PROVIDERS: PCP Student in an Organized Health Care Education/Training Program; Visit Provider Student in an Organized Health Care Education/Training Program
DX: M81.0 Age-related osteoporosis without current pathological fracture (principal); E27.8 Other specified disorders of adrenal gland; E29.1 Testicular hypofunction
CPT/HCPCS: 99213

== ENCOUNTER 2024-11-28 08:41 | Outpatient (REF) | payer OTHER, SELFPAY ==
[2024-11-28 10:47] LABS: Calcium 10.1 mg/dL (8.4-10.2)
== END 2024-11-28 08:42 | disposition home or self-care (01) ==
LOC: HO.LAB 08:41
PROVIDERS: PCP Student in an Organized Health Care Education/Training Program; Visit Provider Student in an Organized Health Care Education/Training Program
DX: M81.0 Age-related osteoporosis without current pathological fracture (principal); E27.8 Other specified disorders of adrenal gland
CPT/HCPCS: 36415; 82310; 83498

== ENCOUNTER 2024-12-02 07:45 | Outpatient (REF) | payer OTHER, SELFPAY ==
[2024-12-02 09:11] LABS: Cortisol Random 4.7 ug/dL
[2024-12-05 19:12] LABS: Adrenocorticotropic Hormone 13 pg/mL (6-50)
== END 2024-12-02 07:46 | disposition home or self-care (01) ==
LOC: HO.LAB 07:45
PROVIDERS: PCP Student in an Organized Health Care Education/Training Program; Visit Provider Student in an Organized Health Care Education/Training Program
DX: E27.8 Other specified disorders of adrenal gland (principal)
CPT/HCPCS: 36415; 80299; 82024; 82533

== ENCOUNTER 2024-12-17 08:57 | Outpatient (AMB) | payer OTHER, SELFPAY ==
--- NOTE | 2024-12-17 09:01 | A.OFFVIS_ITS ---
Intake Visit Reasons: LUTS/ED Intake Note: Pt presents to the office today for LUTS/ED PVR:0ml Accompanied by: SECTIONAL [employer]T MOLD ASSEMBLER Allergies Seasonal Allergies Allergy (Intermediate, Verified 12/17/24 09:) Eye Drainage codeine [From Tylenol-Codeine #3] Allergy (Mild, Verified 12/17/24:) Rash levofloxacin [From Levaquin] Allergy (Mild, Verified 12/17/24:) Rash metoclopramide [From Reglan] Allergy (Mild, Verified 12/17/24:) Rash acetaminophen [Tylenol-Codeine #3] Allergy (Unknown, Verified 12/17/24:) Rash Penicillins [PENICILLINS] Allergy (Unknown, Verified 12/17/24:) Rash ibuprofen [From Motrin] Adverse Reaction (Unknown, Verified 12/17/24:) Reflux HPI Comments Details: Benjamin is a pleasant 59-year-old Micronesian-speaking male patient of Dr.Ponce Keenan who was accompanied by his SECTION[employer] MOLD ASSEMBLER worker at today's office visit. He has a past medical history of hypogonadism, adrenal hyperplasia, osteoporosis, dysphagia, failure to thrive, hypertension, hep C, nephrolithiasis, pneumonia, substance abuse, hemorrhoids, depression, HIV, and asthma. He presents to the office today as a new patient for ongoing lower urinary tract symptoms he has been experiencing. In discussion with the patient he reports noting over the last year to be having issues with urinary dribbling as well as feelings of incomplete bladder emptying. He does report episodes of urinary urgency and frequency. He otherwise denies nocturia, hematuria, dysuria, foul smelling urine, changes to urinary stream, flank pain, fever, and or chills. In office urinalysis results reviewed with the patient today. PVR 0 mL. We discussed at length potential causes of lower urinary tract symptoms patient was experiencing as well as further treatment options and risks and benefits of these treatment options. We discussed obtaining PSA as well as imaging for further assessment evaluation. We discussed bladder triggers/irritants. He does endorse to be drinking increased amounts of coffee daily. We discussed pelvic floor exercises to assist with urinary dribbling. In review of patient's chart it appears PSA 12/02 0.4. He otherwise offers no other issues or concerns at this time. Plan We will conduct an ultrasound of the kidneys and bladder to rule out contributing factors. Pelvic floor exercises and dietary modifications are advised to enhance urinary control. Follow-up will be scheduled post- investigation to evaluate results and refine treatment. Patient was informed and verbally consented to the use of an ambient scribe for clinic note documentation during this visit. Discussion Notes During the visit, I discussed potential causes for patient's urinary symptoms. The rationale for ordering specific diagnostics such as a kidney and bladder ultrasound was explained in detail. Potential benefits, risks, and expectations from pelvic floor exercises and dietary alterations, particularly reducing caffeine, were reviewed. The patient was informed about the initiation of Ta msulosin treatment. Consent was obtained with an emphasis on monitoring symptom response and revisiting treatment plans based on future diagnostic findings. Follow-up arrangements were outlined, contingent on diagnostic results, to ensure comprehensive management. COUNT INCLUDES [facility] Medical History Lower urinary tract symptoms Hypogonadism in male Low serum cortisol level Adrenal hyperplasia Osteoporosis Height loss HIV (human immunodeficiency virus infection) Asthma Dysphagia Adult failure to thrive Adult failure to thrive Multiple rib fractures History of empyema of pleura (01/05/23) Hypertension Closed fracture of leg Hepatitis C Kidney stones Pleuritic chest pain Pneumonia Substance abuse Hemorrhoids Depression HIV (human immunodeficiency virus infection) Asthma Surgical History H/O hemorrhoidectomy Family History Maternal Grandmother Lung cancer Maternal Aunt Lung cancer Mother Lung cancer Social History Household Members: Caregiver Household Members Other:: lives with [facility] Housing: Apartment Do you presently have visiting nurse or other home services: Yes Alcohol intake: never Patient Tobacco Use Status: Former Tobacco user Tobacco use type: Cigarette e-Cigarette/Vaping Use: Never Used Second Hand Smoke Exposure: No Substance Use Type: Crack/Cocaine Advance Directives Date on File: 04/25/21 service: No Current occupational status: disabled Gender identity: Male Review of Systems Eyes Reports no additional complaints ENT Reports no additional complaints Card Reports as per HPI Resp Reports as per HPI GI Reports as per HPI Reports as per HPI Neuro Reports as per HPI Psych Reports as per HPI Julius/Lymph Reports as per HPI Aller/Immun Reports as per HPI Physical Exam Const General: cooperative, comfortable, no acute distress, well developed, alert and awake Orientation/consciousness: oriented to person HEENT Head: Yes normal to inspection Eyes General: appearance normal, both eyes and all related structures Neck Neck: Yes normal visual inspection Chest Chest palpation & inspection: normal inspection of the chest Resp Effort & Inspection: normal respiratory effort and able to speak in complete sentences Cardio Rate: regular rate GI Other: G-tube present General: Yes no CVA tenderness Back/Spine/Pelvis Back: no CVA tenderness Skin General skin exam: no rashes or lesions noted Neuro General: oriented to person Extrem General: Yes normal to inspection Psych Appearance: well kempt Speech and movement: Clear speech present Affect: Other affect and mood findings present (flat affect) Attitude: cooperative Insight: Fair insight present (Psych) Judgement: Fair judgement present (Psych) Office Procedures Post Void Residual Post Residual Void Post Void Residual (PVR): 0 [id number] Void Residual by ultrasound Results AMB Urinalysis, Automated UA Leukoctes 0 Dorys/uL Last Edit by Louisa Trejo CMA on 12/17/24 09:08 UA Nitrite Negative Last Edit by Louisa Trejo CMA on 12/17/24 09:08 UA Urobilinogen 0.2 mg/dL Last Edit by Louisa Trejo CMA on 12/17/24 09:08 UA Protein 15 mg/dL Last Edit by Louisa Trejo CMA on 12/17/24 09:08 UA pH 8.0 Last Edit by Louisa Trejo CMA on 12/17/24 09:08 UA Blood 0 Ralph/uL Last Edit by Louisa Trejo CMA on 12/17/24 09:08 UA Specific [place]ax 1.010 Last Edit by Louisa Trejo CMA on 12/17/24 09:08 UA Ketone Negative Last Edit by Louisa Trejo CMA on 12/17/24 09:08 UA Bilirubin 0 mg/dL Last Edit by Louisa Trejo CMA on 12/17/24 09:08 UA Glucose 0 mg/dL Last Edit by Louias Trejo CMA on 12/17/24 09:08 Results Reviewed Results Reviewed: Laboratory Last Values Urine pH (Auto) 8.0 12/17/24 09:06 Specific Climax (Auto) 1.010 12/17/24 09:06 Urine Protein (Auto) 15 mg/dL 12/17/24 09:06 Glucose (UA)(Auto) 0 mg/dL 12/17/24 09:06 Urine Ketones (Auto) Negative 12/17/24 09:06 Urine Blood (Auto) 0 Ralph/uL 12/17/24 09:06 Urine Nitrite (Auto) Negative 12/17/24 09:06 Urine Bilirubin (Auto) 0 mg/dL 12/17/24 09:06 Urine Urobilinogen (Auto) 0.2 mg/dL 12/17/24 09:06 Leukocyte Esterase (Auto) 0 Dorys/uL 12/17/24 09:06 Assessment & Plan Assessment & Plan (1) Lower urinary tract symptoms: Code(s): R39.9 - Unspecified symptoms and signs involving the genitourinary system Category: Medical (2) Feeling of incomplete bladder emptying: Code(s): R39.14 - Feeling of incomplete bladder emptying Category: Medical (3) Urinary dribbling: Code(s): N39.43 - Post-void dribbling Category: Medical Plan In office urinalysis results reviewed with the patient today; as noted above. PVR 0 mL. We discussed potential causes lower urinary tract symptoms patient was experiencing. Information provided regarding pelvic floor exercises. Start Flomax as discussed and prescribed. Will obtain retroperitoneal ultrasound for further assessment evaluation. We discussed bladder triggers/irritants. Follow-up in 1-3 months with imaging to be completed prior; or sooner with any issues, concerns, and or questions. Orders: Orders AMB Urinalysis Automated Today R39.9 - Unspecified symptoms and signs involving the genitourinary system AMB Post Void Residual by ultrasound Today R39.9 - Unspecified symptoms and signs involving the genitourinary system US retroperitoneal comp Today N39.43 - Post-void dribbling, R39.14 - Feeling of incomplete bladder emptying, R39.9 - Unspecified symptoms and signs involving the genitourinary system Medications: New tamsulosin (Flomax) 0.4 mg PO BEDTIME 30 days 30 caps 3RF N20.0 - Calculus of kidney Patient Instructions: The patient had an opportunity to ask questions regarding the treatment plan. All questions were answered. Physical exam, labs, and imaging were discussed and reviewed in detail. As well as risks, benefits, and discussion of treatment choices. No major barriers to understanding were identified. The patient expressed understanding and agreement with the above treatment plan. The patient was made aware they should contact our office by phone for worsening of their current condition, the appearance of new symptoms, or with any questions or concerns. Compliance is encouraged with any medications and follow up testing that is ordered. It is a privilege to be allowed the opportunity to participate in? your urological care.? Again, if you have any questions or concerns If you have any questions or concerns please do not hesitate to contact me. The office is [phone]. This note is constructed using voice recognition software. While every effort has been made to ensure accuracy bottle capper errors may have been included. Yours sincerely, KRISTY Mtz Coding Level of Care Code New Pt Level 4 (41936) Diagnoses Lower urinary tract symptoms R39.9 Feeling of incomplete bladder emptying R39.14 Urinary dribbling N39.43 CPT Codes Post Residual Void - PVR CPT Code: 96017-[id number] Void Residual by ultrasound ([id number])
--- OUTSIDE RECORDS SUMMARY | 2024-12-17 09:24 | XMS_ITS ---
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 Name Role Phone Terese Rivera Primary Care Provider Pepe Dangelo Unavailable [phone] REASON FOR VISIT Pt no show Encounters Encounter Location Date Provider Diagnosis [facility] [address] [place] [address] 12/14/2023 Pepe Stephenson Plan Of Treatment Next Appt Details Provider Name:Pepe Stephenson , 02/12/2025 11:00:00 AM, [address], [address], [place], [address], Progress Notes * VICKIE DUFFYDOB:1965 (58 yo M)Acc No.[id number]:12/14/2023 Patient:?VICKIE DUFFY :1965???Age:58 Y???Sex:Male Address:[address], [place], [address] * true * Date:? Generated for Vanesai berenice/Hannah/eTransmitting on:?12/17/2024 09:24 AM EDT
--- OUTSIDE RECORDS SUMMARY | 2024-12-17 09:24 | XMS_ITS | Data Portability ---
Author Organization [facility] [employer] [facility], Main Office Address [address], [address] [place] [address] Care Team Providers Care Life Skills Coordinator Name Role Phone BRENDAN HOLLINGSWORTH - 2ND FLOOR OTHER Assessment Encounter Date Assessment Date Assessment LastModified by Organization Details LastModified Time 09/18/2023 09/18/2023 45 minutes spent on coordination of discharge. [email or web address] Not available 09/18/2023 09:47:05 Plan of Treatment [...] and Address Organization Details Recorded Time Asthenia 24575488 Active 2022 MAURO DUFFY NP [address] [facility] [address], [address], [place], [address], [facility] [employer] 3 12:08:07 Moderate protein-calori e malnutrition (weight for age 60-74 percent of standard) 243180828 Active 2022 MAURO DUFFY NP [address] [facility], [address], [place], [address], [facility] [employer] 3 12:08:23 Pneumonia 443631985 Active 2022 MAURO DUFFY NP [address] [facility], [address], [place], [address], [facility] [employer] 3 12:08:31 Pleural effusion 66461563 Active 2022 MAURO DUFFY NP [address], [address], [place], [address], [facility] [employer] [facility] 3 12:08:59 Hypertensive disorder 86334540 Active 2022 MAURO DUFFY NP [address], [address], [place], [address], [facility] [employer] [facility] 3 12:09:07 Human immunodeficien cy virus infection 70426684 Active 2022 MAURO DUFFY NP [address], [place], [address], [facility] [employer] [facility] 3 12:09:12 Viral hepatitis C 84151696 Active 2022 MAURO DUFFY NP [address], [address], [place], [address], [facility] 3 12:09:28 Mixed anxiety and depressive disorder 261647350 Active 2022 MAURO DUFFY NP [address], [address], [place], [address], [facility] 3 12:09:40 Asthma 676657527 Active 2022 MAURO DUFFY NP [address], [place], [address], [facility] 3 12:09:56 Acute dermatitis 50816433 Active 2022 MAURO DUFFY NP [address], [place], [address], [facility] 3 12:14:27 Migraine 44393622 Active 2022 MAURO DUFFY NP [address], [place], [address], [facility] 3 12:25:08 Non-traumatic rhabdomyolysis 970258435 Active 2022 Leilani Romeo MD [address], [address], [place], [address], [facility] 3 10:08:19 Moderate persistent asthma 529424643 Active 2022 Leilani Romeo MD [address], [address], [place], [address], [facility] 3 10:18:10 Insomnia 463193314 Active 2022 Leilani Romeo MD [address], [address], [place], [address], [facility] 3 10:19:09 Polysubstance abuse 286375781 Active 2022 Leilani Romeo MD [address], [place], [address], [facility] 3 10:19:11 Adult failure to thrive syndrome 023482624 Active 2022 Maryjane Glover NP [address], [address], [place], [address], [facility] 3 13:27:15 Anemia 492427067 Active 2022 Maryjane Glover NP [address], [address], [place], [address], [facility] 3 13:30:43 Dysphagia 95254422 Active 2022 Leilani Romeo MD [address], [address], [place], [address], [facility] 3 20:51:38 Gastroesophage al reflux disease without esophagitis 453184698 Active 2022 Leilani Romeo MD [address], [address], [place], [address], [facility] 3 20:54:24 Chronic pain 67864347 Active 2022 Leilani Romeo MD [address], [address], [place], [address], [facility] 3 20:55:56 Problem Notes None recorded. Medical Equipment None Reported. Allergies Allergen ID Allergen Name Allergen Category Reaction Reaction Severity Criticality Documentation Date Start Date Code Code System Note Provider Name and Address Organization Details Recorded Time 92932 codeine medicatio n Not available Not available Not available 01/17/2023 2670 RxNorm rash Not Available Not Available Not Available 96996 Levaquin medicatio n Not available Not available Not available 01/17/2023 63011 2 RxNorm rash Not Available Not Available Not Available 57090 Reglan medicatio n Not available Not available Not available 01/17/2023 9230 RxNorm rash Not Available Not Available Not Available 51508 ibuprofen medicatio n Not available Not available Not available 01/17/2023 5640 RxNorm reflu x Not Available Not Available Not Available 75382 Product containin g penicilli n (product) medicatio n Not available Not available Not available 01/17/2023 15310 8001 SNOMED rash Not Available Not Available Not Available 12309 Ultram medicatio n Not available Not available Not available 01/17/2023 66991 6 RxNorm N/V Not Available Not Available Not Available 23856 acetamino phen medicatio n other Not available unabletoasse ss 08/03/2023 161 RxNorm unkno wn Not Available Not Available Not Available 74866 [employer] environme nt,medica tion other Not available unabletoasse 08/03/2023 67231 6 RxNorm unkno wn Not Available Not [...] Details Last Updated DateTime 3 167.64 cm 77000.5 4 g 17.4 kg/m2 86 /min 18 /min 97.6 [degF] 91 % 91 % 115 mm[Hg] 68 mm[Hg] Maryjane Glover NP [address] [facility], [address], [place], [address], [place] [facility] [place] 3 11:08:33 Date Recorded Body height Body weight Heart rate Respiratory rate Body temperature Oxygen saturation Oxygen saturation in Arterial blood by Pulse oximetry Systolic blood pressure Diastolic blood pressure Provider Name and Address Organization Details Last Updated DateTime 3 167.64 cm 89197.5 4 g 72 /min 18 /min 97.1 [degF] 96 % 96 % 115 mm[Hg] 68 mm[Hg] Maryjane Glover NP [address] [facility], [address], [place], [address], [facility] 3 13:10:32 Date Recorded Body height Body mass index (BMI) Body weight Heart rate Systolic blood pressure Diastolic blood pressure Provider Name and Address Organization Details Last Updated DateTime 3 167.64 cm 17.3 kg/m2 56120.3 8 g 74 /min 133 mm[Hg] 85 mm[Hg] Dilia Gonzalez [address] [facility] [address] [facility], [address], [place], [address], [facility] 3 13:13:45 Date Recorded Body height Body weight Heart rate Respiratory rate Body temperature Oxygen saturation Oxygen saturation in Arterial blood by Pulse oximetry Systolic blood pressure Diastolic blood pressure Provider Name and Address Organization Details Last Updated DateTime 4 167.64 cm 09978.5 4 g 88 /min 18 /min 97.6 [degF] 96 % 96 % 133 mm[Hg] 85 mm[Hg] Maryjane Glover NP [address] [facility], [address], [place], [address], [facility] 4 19:10:48 Date Recorded Body height Heart rate Respiratory rate Body temperature Oxygen saturation Oxygen saturation in Arterial blood by Pulse oximetry Systolic blood pressure Diastolic blood pressure Provider Name and Address Organization Details Last Updated DateTime 4 167.64 cm 84 /min 18 /min 97.5 [degF] 98 % 98 % 133 mm[Hg] 85 mm[Hg] MAURO DUFFY NP [address] [facility], [address], [place], [address], [facility] 4 08:57:54 Social History Question Answer Notes LastModified by Organizat ion Details LastModified Time Tobacco Smoking Status Never Smoker MAURO DUFFY NP [address] [facility] [address] [facility], [address], [place], [address], [facility] 01/17/2023 11:35:26 Do You Have An Advance Directive? Yes [email or web address] Information not available 01/17/2023 What Is Your Level Of Alcohol Consumption? None Information not available 01/17/2023 What Is Your Code Status? Full Code [email or web address] Information not available 01/17/2023 Where Do You Live? Apartment With Elevator, Family Near By, Helpful [email or web address] Information not available 01/17/2023 What Was The Date Of Your Most Recent Tobacco Screening? 08/03/2023 Information not available 08/03/2023 Do You Use Any Illicit Or Recreational Drugs? No Noted Past Use Cocaine Information not available 08/03/2023 Has Tobacco Cessation Counseling Been Provided? No [email or web address] Information not available 01/17/2023 Do You Or Have You Ever Used Any Other Forms Of Tobacco Or Nicotine? No [email or web address] Information not available 01/17/2023 Sex: Unknown Functional Status None recorded. Mental Status None recorded. Family History Relationship Description Onset Age of this Age Resolved Age Notes LastModified by Organization Details LastModified Time Mother Malignant tumor of lung [email or web address] Not available 2022 11:34:21 Medical History No medical history recorded. Immunizations Vaccine Type Date Status Note Provider Nam e and Address Organization Details Recorded Time COVID-19, mRNA, LNP-S, bivalent, PF, 50 mcg/0.5 mL or 25mcg/0.25 mL dose [facility] 13:44:56 COVID-19, mRNA, LNP-S, bivalent, PF, 50 mcg/0.5 mL or 25mcg/0.25 mL dose 3 [facility] 13:45:39 Pneumococcal conjugate PCV20, polysaccharide [id number] conjugate, adjuvant, PF 3 completed Asia juarez [facility] 09/11/2023 13:46:16 Influenza, adjuvanted, quadrivalent, PF 3 completed Asia juarez [facility] 09/11/2023 13:46:36 Influenza, adjuvanted, quadrivalent, PF 2 completed Asia juarez [facility] 10/24/2023 13:13:32 Past Encounters Encounter ID Performer Location Encounter Start Date Encounter Closed Date Diagnosis/Indication Diagnosis SNOMED-CT Code Diagnosis ICD10 Code Diagnosis Note [id number] MAURO DUFFY NP [address] [address] 01/17/2023 11:16:19 01/22/2023 12:34:21 Pleural effusion 34548237 J90 and empyema, resp. failures/p L chest tube, intubation Clinically improved.M onitor VS, sats, LS, CP status closely for decompensa tion Pneumonia 387640946 J18. 9 Treated with IV zosyn in hosp.Clini lesly improved.A s above, monitlr VS, sats, LS, CP status closely Asthenia 48363444 R53.1 PT OT eval and tx. Moderate protein-calorie malnutrition (weight for age 60-74 percent of standard) 462392134 E44.0 Started supplement s in hosp.Refer to monument letterer here.Seen by in hosp, diet changed to chopped/ad vanced consistenc yOn reg. diet here, doing well. Refer to rehab to try to get bedside FEES testing Hypertensive disorder 38 910075 I10 On norvasc 5 mg dailyPropr anolol ER held in hosp., instructed to resume 03/09, unclear as to why held or if used for something else?Monio r VS, adjust meds prn Human immunodeficiency virus infection 33010133 B20 Continue biktarvy Mixed anxi ety and depressive disorder 093477232 F41.8 Continue home meds:clona zepam 1 mg daily? risperdal 2 mg HSremeron 60 mg HSMonitor mood, behaviors for changePsyc h eval prn Asthma 211634396 J45.90 9 Continue flovent bidMonitor resp. status for change Acute dermatitis 0573890 6 L30.9 bilat. groin, fungalstar t nystatin cream or powder bid x 14 days or until clearmonit or Migraine 98661168 G43.90 9 Continue home meds:Celeb monica 200 mg bidgabapen tin 600 mg tidibuprof en 800 mg q8 hr prnultram 50 daily prn? clonazepam 1 mg daily? risperdal 2 mg HS? propranolo l Er 120 mg daily - held in hosp - cont. to hold here, resume date of 03/09 [facility] [id number] Kenia Michaels MD [address] [address] 01/19/2023 07:22:18 01/22/2023 15:16:30 Pneumonia 011481146 J15.8 antibiotic s completeds /p empyema, respirator y failure, intubation will monitor Asthenia 19669962 R53.1 PT/OTwill monitor Human immunodeficiency virus infection 76324098 B20 Biktarvy 50-200-25 dailyfu I.D. Essential hypertension 62766701 I10 amlodipine 5 mg dailywill monitor Mixed anxi ety and depressive disorder 184338043 F41.8 gabapentin 600 mg tidmirtaza pine 60 mg at hsrisperid one 2 mg at hsclonazep am 1 mg dailywill monitor Gastroesop hageal reflux disease without esophagitis 882336706 K21.9 pantoprazo le 40 mg dailywill monitor Chronic pain 10313246 G8 9.29 gabapentin 600 mg tidhospita l discharge notes include:ce lecoxib 200 m bid, ibuprofen 800 mg q8h prn, tramadol 50 mg daily prnwill monitor and consider if needed [id number] Panchito Morales NP [facility] [address] [place] [address] 06/30/2023 08:20:37 07/03/2023 11:44:52 Human immunodeficiency virus infection 78612716 B20 06/30/23mo nitorID consult as indicated- biktarvy (bictegrav ir, emtricitab ine & tenofovir alafenamid e) 50-200-25m g QD Hypertensive disorder 38 453708 I10 06/30/23mo nitorcards FU PRNavoid beta barb with HX of cocaine abuse-amlo dipine 5mg QD Mixed anxi ety and depressive disorder 034500546 F41.8 06/30/23mo nitorpsych consult PRN-risper idone 3mg QHS Viral hepatitis C 988886 07 B19.20 10/21/23mo nitor [id number] Leilani Levheim, MD [facility] on [address] [place] [address] 07/02/2023 17:00:01 07/12/2023 14:37:46 Human immunodeficiency virus infection 45783765 B20 Non-detect able on last checkConti nue biktarvy (bictegrav ir, emtricitab ine & tenofovir alafenamid e) 50-200-25m g QDF/U with ID as planned. Hypertensive disorder 38 458946 I10 BP good since here.Sam nue amlodipine 5 mg qdMonitor BP and labs. Mixed anxi ety and depressive disorder 523755020 F41.8 Mood stable.Con tinue risperidon e 3 mg qhs, mirtazapin e 30 mg qhs, and clonazepam 1 mg qd.Monitor mood.Psych consult prn. Viral hepatitis C 331504 07 B18.2 Unclear hx.LFTs WNL.F/U as outpt. Acute chest pain 6554803 01 R07.89 Per cardio not ACS.Monito r sxs.F/U with cardio prn. Non-trauma tic rhabdomyolysis 385873867 M62.82 CPK trended down inpt.No need to monitor further. Moderate p ersistent asthma 353681603 J45.40 No SOB or hypoxia, but with junky cough as above.Cont inue Advair 230/21 two puffs BID, Flovent 2 puffs BID, and albuterol/ budesonide 2 puffs q 6 hrs prn.Monito r resp status. Polysubstance abuse 4452 33387 F19.10 Most often cocaine, but sometimes other things.Con tinue SUDs counseling while here and encourage abstinence and outpt f/u. Cough 46022355 R05.8 Sounds junky, but pt says it feels like tickle in throat. Maybe post nasal drip.Lungs clear, but still could be early PNA.Will start Robitussin DM 10 ml q 4 hrs prn and get CXR tomorrow.M onitor resp status. Insomnia 176659796 G47.0 9 Will try melatonin 5 mg qhs.Monito r sleep patterns. [id number] MIGUEL BROWN [facility] on [address] [place] [address] 07/05/2023 08:16:20 07/12/2023 16:01:31 Mixed anxiety and depressive disorder 568856148 F41.8 07/05: his mood is stablecont inue:clona zepam 1 mg dailyrispe ridone 3 mg daily at bedtime.Mi rtazapine 30 mg at bedtime daily.tu tonin 5 mg at bedtime daily Cough 42064576 R05.8 07/05: non productive upper airway congested coughThere is no SOB. LS are clearCXR completed; no active pulmonary infiltrate s or pleural effusions seen.Erna ussin DM 10 ml q 4 hrs prn- will scheduled for a few days, does not look like he requested prn.Monito r resp status. Polysubstance abuse 4452 00502 F19.10 Most often cocaine, but sometimes other things.Con tinue SUDs counseling while here and encourage abstinence and outpt f/u. [id number] MIGUEL BROWN [facility] on [address] [place] [address] 07/06/2023 09:35:29 07/12/2023 16:16:45 Mixed anxiety and depressive disorder 012102775 F41.8 continue:c lonazepam 1 mg dailyrispe ridone 3 mg daily at bedtime.Mi rtazapine 30 mg at bedtime daily.tu tonin 5 mg at bedtime dailyfollo w up with outpatient PCP. Cough 76043234 R05.8 CXR on 07/03/23 negative for any acute process.Ro bitussin DM 10 ml q 4 hrs prnfollow up with outpatient PCP. Acute dermatitis 0618035 6 L30.9 continueny statin cream BID as needed until clearedfol low up with outpatient PCP. Asthma 803781450 J45.90 9 Advair 230/21 two puffs BID,Floven t 2 puffs BID, andalbuter ol/budeson kentrell 2 puffs q 6 hrs prn.follow up with outpatient PCP. Human immunodeficiency virus infection 35233893 B20 Continue biktarvy (bictegrav ir, emtricitab ine & tenofovir alafenamid e) 50-200-25m g QD Hypertensive disorder 38 869501 I10 Continue amlodipine 5 mg qdfollow up outpatient Insomnia 438030576 G47.0 9 melatonin 5 mg at bedtime Migraine 82153295 G43.90 9 Continue home meds: Celebrex 200 mg bid gabapentin 600 mg tid ibuprofen 800 mg q8 hr prn ultram 50 daily prn clonazepam 1 mg daily risperdal 3 mg HS follow up with PCP Viral hepatitis C 735750 B18.2 follow labs outpatient follow up with outpatient pcp. [id number] Maryjane Glover NP [facility] [address] [place] [address] 08/03/2023 12:58:35 08/08/2023 10:07:33 Human immunodeficiency virus infection 24403472 B20 ID consult prnbiktarv y (bictegrav ir, emtricitab ine & tenofovir alafenamid e) 50-200-25m g QD Asthenia 69725756 R53.1 PT/OT treat and evalwill monitor Essential hypertension 17130296 I10 amlodipine 5 mg dailywill monitor Mixed anxi ety and depressive disorder 772330838 F41.8 gabapentin 600 mg tidmirtaza pine 60 mg at hsrisperid one 3 mg at hsclonazep am 1 mg dailypsych prnwill monitor Gastroesop hageal reflux disease without esophagitis 059235655 K21.9 With recent workup in hosp and PEG placed.use G tube for feedings/m edswill monitor Chronic pain 19665332 G8 9.29 gabapentin 600 mg tidtramado l 50 mg prn dailymulti ple allergies notedwill monitor and consider if needed Polysubstance abuse 4452 58383 F19.10 Most often cocaine per hx with overdoses notedConti nue counseling while here and encourage abstinence and outpt f/u. Asthma 598301398 J45.90 9 advair 2 puff bidalbuter ol 2 puffs q 6 hours prn wheezingMo nitor resp. status for change Viral hepatitis C 165747 B18.2 fu with labscurren tly stable liver enzymesmon itor Moderate protein-calorie malnutrition (weight for age 60-74 percent of standard) 701182423 E44.0 now on PEG tube with feedings at 60cc/hrRef er to monument letterer here.Seen by in hosp, unclear why he has dysphagia and difficulty eating with workup including EGD at [facility] eval and treat here to see if he can take po intakemoni tor Anemia 391984428 D64.9 ferrous gluconate 324 dailymonit or cbc weekly Adult fail ure to thrive syndrome 290565384 R62.7 g tube feedings and meds through g tube at 60cc/hrfai lure to thrive with supplement s in [facility] to eval and treat, consider reintroduc ing foods when ableweight s weeklymoni tor Insomnia 559115837 G47.0 9 benedryl 25 mg qhsmonitor [id number] Leilani Romeo MD [address] [address] 08/06/2023 16:28:34 08/08/2023 11:16:44 Adult failure to thrive syndrome 908083384 R62.7 With marked wt. loss over past few months.Mehrdad barr Jevity 1.0 or 1.2 tanya/ml at 60 ml/hr.Stil l unable to swallow, unknown reason.Mehrdad barr SANITARY INSPECTOR interventi ons to hopefully enable him to eat again.Cait tor wts and labs. Moderate protein-calorie malnutrition (weight for age 60-74 percent of standard) 688587673 E44.0 As above. Human immunodeficiency virus infection 14153762 B20 Last labs show zero viral load.Sam nue Biktarvy (bictegrav ir, emtricitab ine & tenofovir alafenamid e) 50-200-25m g QDF/U with ID as planned. Asthenia 56479696 R53.1 Very deconditio armen.Needs PT/OT for strengthen ing, balance, gait training, safety and function.C ontinue fall precaution s.Monitor for safety. Essential hypertension 36667784 I10 BP running low since here, should improve as nutritiona l status improves.C ontinue amlodipine 5 mg qdMonitor BP and labs. Gastroesop hageal reflux disease without esophagitis 014085853 K21.9 On no meds.I wonder if starting a PPI may help with throat pain?Monit or Chronic pain 74798923 G8 9.29 No c/o tonight.Co ntinue gabapentin 600 mg TID and tramadol 50 mg qd prnMonitor sxs. Asthma 436759698 J45.30 Asthma meds transcribe d incorrectl y on admission here.Was not put on Advair, but rather only albuterol/ budesonide prn.Will restart Advair 230/21 mcg two puffs BIDMonitor resp. status Anemia 812282058 D64.89 Not currently anemic.Con tinue ferrous gluconate 324 mg qdMonitor labs Mixed anxi ety and depressive disorder 603301873 F41.8 Mood stable.Con tinue risperidon e 3 mg qhs, mirtazapin e 60 mg qhs, and clonazepam 1 mg qd.Monitor mood.Psych consult prn. Viral hepatitis C 520125 07 B18.2 Unclear hx.LFTs WNL.F/U as outpt. Polysubstance abuse 4452 64803 F19.10 Most often cocaine, but sometimes other things.Con momo counseling and encourage abstinence and outpt f/u. Dysphagia 99269669 R13.1 9 Unknown etiology.C ontinue G-tube feeding as above.Cons ider ENT consult. [id number] Maryjane Glover, LADAN [address] [address] 08/16/2023 12:26:03 08/22/2023 11:29:11 Adult failure to thrive syndrome 395301271 R62.7 With marked wt. loss over past few months.Con tinueJevit y 1.5 tanya/ml at 60 ml/hr. monument letterer following and will adjust as neededStil l unable to swallow, unknown reason.Con momo SANITARY INSPECTOR interventi ons to hopefully enable him to eat again.Cait tor wts and labs. Dysphagia 38526090 R13.1 9 Unknown etiology.C ontinue G-tube feeding as above.Cons ider ENT consult. Moderate protein-calorie malnutrition (weight for age 60-74 percent of standard) 984382117 E44.0 As above. Human immunodeficiency virus infection 13358454 B20 Last labs show zero viral load.Sam nueBiktarv y (bictegrav ir, emtricitab ine & tenofovir alafenamid e) 50-200-25m g QDF/U with ID as planned. Asthenia 06774477 R53.1 Very deconditio armen.Needs PT/OT for strengthen ing, balance, gait training, safety and function.C ontinue fall precaution s.Monitor for safety. Essential hypertension 25439797 I10 BP running low since here, should improve as nutritiona l status improves.a mlodipine 5 mg qdMonitor BP and labs. Gastroesop hageal reflux disease without esophagitis 846099055 K21.9 no meds.Monit or Chronic pain 71475359 G8 9.29 has mild headache todayConti nuegabapen tin 600 mg TIDtramado l 50 mg qd prnMonitor sxs. Asthma 055568396 J45.30 Asthma meds transcribe d incorrectl y on admission here.albut maddi/budes onide prn.Advair 230/21 mcg two puffs BIDMonitor resp. status Anemia 118715539 D64.89 Not currently anemic.juan carlos scales order cbc and bmp weekly l2ixoqirv gluconate 324 mg qdMonitor labs Mixed anxi ety and depressive disorder 479401843 F41.8 Mood stable.ris peridone 3 mg qhsmirtaza pine 60 mg qhs,clonaz epam 1 mg qd.Monitor mood.Psych consult prn. Viral hepatitis C 556200 07 B18.2 Unclear hx.LFTs WNL.F/U as outpt. Polysubstance abuse 4452 57318 F19.10 Most often cocaine, but sometimes other things.Mehrdad barr counseling and encourage abstinence and outpt f/u. [id number] Maryjane Glover NP [address] [address] 08/22/2023 11:06:38 08/28/2023 14:23:57 Adult failure to thrive syndrome 869538785 R62.7 With marked wt. loss over past few months.Con tinueJevit y 1.2 tanya/ml at 67ml/hr. monument letterer following and will adjust as neededStil l unable to swallow, unknown reason.Mehrdad barr SANITARY INSPECTOR interventi ons to hopefully enable him to eat again.Cait tor wts and labs.08/22 monument letterer to assess if bolus feedings can be attempted for homefamily /pt needs g tube care/teach ing for ? dc homemonito r Asthenia 30280134 R53.1 Very deconditio armen, improving every week with therapyNee ds PT/OT for strengthen ing, balance, gait training, safety and function.C ontinue fall precaution s.Monitor for safety. Dysphagia 37747958 R13.1 9 Unknown etiology.C ontinue G-tube feeding as above.Cons ider ENT consult. Anemia 714820883 D64.89 Not currently anemic.juan carlos l order cbc and bmp weekly c4wnopmyi gluconate 324 mg qdMonitor labs Moderate protein-calorie malnutrition (weight for age 60-74 percent of standard) 111571350 E44.0 As above. Human immunodeficiency virus infection 20782879 B20 ContinueBi ktarvy (bictegrav ir, emtricitab ine & tenofovir alafenamid e) 50-200-25m g QDF/U with ID as planned. Essential hypertension 62463532 I10 BP now improving as nutritiona l status improves.1 10s-130s /60scontam lodipine 5 mg qdMonitor BP and labs. Gastroesop hageal reflux disease without esophagitis [id number] K21.9 no meds.Monit or Chronic pain 06087580 G8 9.29 headache resolvedCo ntinuegaba pentin 600 mg TID, no pain todaytrama dol 50 mg qd prnMonitor sxs. Asthma 142269589 J45.30 Asthma meds transcribe d incorrectl y on admission here.albut maddi/budes onide prn.Advair 230/21 mcg two puffs BIDMonitor resp. status Mixed anxi ety and depressive disorder [id number] F41.8 Mood stable and ding wellrisper idone 3 mg qhsmirtaza pine 60 mg qhs,clonaz epam 1 mg qd.Monitor mood.Psych consult prn. [id number] Maryjane Glover NP [address] [address] 08/29/2023 08:14:48 08/30/2023 19:42:34 Adult failure to thrive syndrome 127949316 R62.7 With marked wt. loss over past few months.Con tinueJevit y 1.2 tanya/ml at 67ml/hr. monument letterer following and will adjust as neededStil l unable to swallow, unknown reason.per speech eval: no eating or drinkingMo nitor wts and labs.08/22 monument letterer to assess if bolus feedings can be attempted for homefamily /pt needs g tube care/teach ing for ? dc homemonito r1/ awaiting monument letterer to calculate gtube feedings and start Asthenia 64495552 R53.1 Very deconditio armen, improving every week with therapyNee ds PT/OT for strengthen ing, balance, gait training, safety and function.C ontinue fall precaution s.Monitor for safety. Dysphagia 97423100 R13.1 9 Unknown etiology.C ontinue G-tube feeding as above.Cons ider ENT consult. Anemia 354291703 D64.89 Not currently anemic.juan carlos l order cbc and bmp prn, labs stableferr ous gluconate 324 mg qdMonitor labs Moderate protein-calorie malnutrition (weight for age 60-74 percent of standard) 199323437 E44.0 As above. Human immunodeficiency virus infection 69233539 B20 ContinueBi ktarvy (bictegrav ir, emtricitab ine & tenofovir alafenamid e) 50-200-25m g QDF/U with ID as planned. Essential hypertension 97906990 I10 BP now improving as nutritiona l status improves.1 conta mlodipine 5 mg qdMonitor BP and labs. Gastroesop hageal reflux disease without esophagitis 457016704 K21.9 no meds.Monit or Chronic pain 95882187 G8 9.29 headache resolvedCo ntinuegaba pentin 600 mg TID, no pain todaytrama dol 50 mg qd prnMonitor sxs. Asthma 766523455 J45.30 Asthma meds transcribe d incorrectl y on admission here.albut amddi/budes onide prn.Advair 230/21 mcg two puffs BIDMonitor resp. status Mixed anxi ety and depressive disorder 865923297 F41.8 Mood stable and ding wellrisper idone 3 mg qhsmirtaza pine 60 mg qhs,clonaz epam 1 mg qd.Monitor mood.Psych consult prn. Neck pain 56496707 M54.2 incidental neck pain, states slept on it wrongnsg giving tyl, tramadol and gabapentin reposition neckmonito r for relief [id number] Dilia SchwarzGino Hutchinson [address] [place] [address] 09/07/2023 05:15:43 09/13/2023 10:39:11 Adult failure to thrive syndrome 629089705 R62.7 With marked wt. loss over past few months.Con tinueJevit y 1.2 tanya/ml at 67ml/hr. monument letterer following and will adjust as neededStil l unable to swallow, unknown reason.Mehrdad barr SANITARY INSPECTOR interventi ons to hopefully enable him to eat again.Cait tor wts and labs.recei deborah education on gt feeds, SW working on VNA set up for [facility] GT site daily with NS and dry. apply 2x2 to sitemonito r Asthenia 31521899 R53.1 Very deconditio armen, improving every week with therapyNee ds PT/OT for strengthen ing, balance, gait training, safety and function.C ontinue fall precaution s.Monitor for safety. Dysphagia 51718383 R13.1 9 Unknown etiology.C ontinue G-tube feeding as above.Cons ider ENT consult. Anemia 256668186 D64.89 Not currently anemic.juan carlos l order cbc and bmp weekly n2aybqjgh gluconate 324 mg qdMonitor labs Moderate protein-calorie malnutrition (weight for age 60-74 percent of standard) 021840193 E44.0 As above. Human immunodeficiency virus infection 81647829 B20 ContinueBi ktarvy (bictegrav ir, emtricitab ine & tenofovir alafenamid e) 50-200-25m g QDF/U with ID as planned. Essential hypertension 82751535 I10 BP now improving as nutritiona l status improves.1 10s-130s /60scontam lodipine 5 mg qdMonitor BP and labs. Gastroesop hageal reflux disease without esophagitis 867231417 K21.9 no meds.Monit or Chronic pain 07665165 G8 9.29 headache resolvedCo ntinuegaba pentin 600 mg TID, no pain todaytrama dol 50 mg qd prnMonitor sxs. Asthma 697148641 J45.30 Asthma meds transcribe d incorrectl y on admission here.albut maddi/budes onide prn.Advair 230/21 mcg two puffs BIDMonitor resp. status Mixed anxi ety and depressive disorder 168308489 F41.8 Mood stable and ding wellrisper idone 3 mg qhsmirtaza pine 60 mg qhs,clonaz epam 1 mg qd.Monitor mood.Psych consult prn. [id number] Maryjane Glvoer, [facility] [address] [place] [address] 09/12/2023 18:08:08 09/14/2023 11:17:17 Adult failure to thrive syndrome 089834842 R62.7 With marked wt. loss over past [...] dry. apply 2x2 to sitemonito r Asthenia 93282574 R53.1 Very deconditio armen, improving every week with therapyNee ds PT/OT for strengthen ing, balance, gait training, safety and function.C ontinue fall precaution s.Monitor for safety. Dysphagia 12185981 R13.1 9 Unknown etiology.C ontinue G-tube bolus feeding as above.FEES test on Sundayne s cxr to rule out pna from foods and drinks in room despite recommenda tionConsid er ENT consult. Moderate protein-calorie malnutrition (weight for age 60-74 percent of standard) 614876894 E44.0 As above. Human immunodeficiency virus infection 60668092 B20 ContinueBi ktarvy (bictegrav ir, emtricitab ine & tenofovir alafenamid e) 50-200-25m g QDF/U with ID as planned. Essential hypertension 43436840 I10 BP now improving as nutritiona l status improves.1 10s-130s /60scontam lodipine 5 mg qdMonitor BP and labs. Asthma 888531855 J45.30 no wheezing noted on exam, stablealbu terol/bude sonide prn.Advair 230/21 mcg two puffs BIDMonitor resp. status Mixed anxi ety and depressive disorder 398350272 F41.8 Mood stable and ding wellrisper idone 3 mg qhsmirtaza pine 60 mg qhs,clonaz epam 1 mg qd.Monitor mood.Psych consult prn. [id number] MAURO DUFFY NP [facility] [place] [address] 09/18/2023 08:57:08 09/25/2023 10:49:09 Adult failure to thrive syndrome 500632473 R62.7 With marked wt. loss over past few months due to difficulty swallowing .G tube placed 07/30/23 at [facility].Contin ue osmolite 1.2 tanya/ml 410 cc qid bolus tube feedings upon d/c home.Seen by SANITARY INSPECTOR - now on puree diet with thin liquids - may continue at homeContin ue to monitor weights and intake at home Asthenia 63707822 R53.1 Improved, meeting rehab goals for d/c home today with support of services.C ontinue fall precaution s.Monitor for safety as outpt. Dysphagia 83573587 R13.1 9 Unknown etiology.S ee above.[facility] w on pureed diet, thin liquidsMon itor intake, s/s aspiration as outpt. Moderate protein-calorie malnutrition (weight for age 60-74 percent of standard) 158405885 E44.0 As above. Human immunodeficiency virus infection 12987092 B20 ContinueBi ktarvy (bictegrav ir, emtricitab ine & tenofovir alafenamid e) 50-200-25m g QDF/U with ID as planned. Essential hypertension 52035634 I10 continue amlodipine 5 mg qdMonitor BP as outpt. Asthma 758456155 J45.30 no wheezing noted on exam, stablecont inue Advair 230/21 mcg two puffs BID and albuterol/ budesonide prn.Monito r resp. status as outpt. Mixed anxi ety and depressive disorder 424519078 F41.8 Mood stable and doing wellContin ue home medsrisper idone 3 mg qhsmirtaza pine 60 mg qhsclonaze david 1 mg qdMonitor mood, behaviors as outpt. Chronic pain 08618950 G8 9.29 continue gabapentin 600 mg tid, ultram 50 mg qd prnmonitor asoutpt. Anemia 822108693 D64.89 remains on daily FeMonitor CBC,s/s active bleeding Health Concerns Section Related Observation LastModified by Organization Detai ls LastModified Time None Recorded Concern Status LastModified by Organization Details LastModified Time None Recorded Advance Directives Directive Y: Payers Encounter Date Sequence Insurance Name Policy Number Policy Perry Covered Member ID Perry Member ID Guarantor Name 08/22/2023 1 [employer] [employer] - DOS ON OR AFTER 2022 - MEDICARE [place]VANTAGE [place] (MEDICARE REPLACEMENT/ADV ANTAGE - PPO) [facility] [id number] [facility] 08/29/2023 1 [employer] ([employer] [employer] [employer] - DOS ON OR AFTER 2022 - [place]IC[place]/ADV ANTAGE - PPO) [facility] [id number] [facility] 09/07/2023 1 [employer] ([employer] - DOS ON OR AFTER 2022 - [place]IC[place]AC[place]/ADV ANTAGE - PPO) [facility] [id number] [facility] 09/12/2023 1 [employer] - DOS ON OR AFTER 2022 - [place]IC[place]/ADV ANTAGE - PPO) [facility] [id number] [facility] 09/18/2023 1 [employer] - DOS ON OR AFTER 2022 - [place]IC[place] (MED[place]ARE RE[place]EMENT/ADV ANTAGE - PPO) [facility] [id number] [facility] Notes Date Note Type Note Provider [...] other concerns. Note: He was admitted to [facility] ED for similar concerns earlier this month [...] code signed 01/17/23 Maryjane Glover NP [address], [address], [place], [address], [facility] [place] 08/22/2023 11:24:08 08/29/2023 text/html Patient seen for an 30 routine rounding visit. Past medical history significant for HIV, history of hep C, depression, asthma, history lung abscess 2020, fall, several overdoses noted in hx. dysphagia seen for difficulty swallowing ultimately diagnosed with failure to thrive and PEG tube placed. Benjamin was admitted to [facility] ED for difficulty swallowing and underwent EGD [...] hospital to rehab. While here at [facility]: Pt is 107.6 lbs and this is [...] disconnect his feedings without difficulty here. Awaiting monument letterer to calculate bolus feedings and start them [...] code signed 01/17/23 Maryjane Glover NP [address], [address], [place], [address], [facility] [place] 08/29/2023 13:39:07 09/07/2023 text/html Patient seen for [...] other concerns. Note: He was admitted to [facility] ED for similar concerns earlier this month [...] code signed 01/17/23 Dilia Michelle lloyd [address], [address], [place], [address], Pro Breath MD 09/07/2023 13:21:25 09/12/2023 text/html Patient seen for [...] code signed 01/17/23 Maryjane Glover NP [address], [address], [place], [address], Pro Breath MD 09/12/2023 19:33:00 09/18/2023 text/html Benjamin is seen t heidy for discharge. He is going home today with support of services. He is a 58 yo man admitted to [facility] 08/02/23 from [facility] for continued care and rehab after a hospitalization related to malnutrition and FTT.He presented to [facility] 07/27 reporting throat pain and the inability to swallow.Swallowing issues problematic prior to this presentation, had EGD with Dr. Dodson 07/17, results c/w mild candidiasis normal stomach and duodenum. He was also seen by SANITARY INSPECTOR, diet changed to NND1 and nectar thick liquid. Due to ongoing swallowing issues at home, he returned to [facility] ER.A g-tube was placed on 07/30, cause of dysphagia unclear. Kept NPO, and sent here for rehab. While here, Benjamin has done well.Worked with PT/OT, meeting goals for d/c home.Also worked with SANITARY INSPECTOR and monument letterer - now tolerating puree diet with thin [...] (possibly heroin at time also, possibly inadvertently). MARUO DUFFY NP [address], [address], [place], [address], [facility] 09/18/2023 09:47:21
--- OUTSIDE RECORDS SUMMARY | 2024-12-17 09:24 | XMS_ITS | Data Portability ---
Author Organization LYNN WHITE MD [facility], Main Office Address [address] [place] [address] Assessment No assessment recorded. Plan of Treatment Reminders Order Date Submit Date Provider Last Modified By Organization Details Last Modified Time Details Appointments RESEARCH FOLLOW UP 2024 10:30A [address] MD Not available Not available Not available Lab None recorded . Referral None recorded . Procedures None recorded . Surgeries None recorded . Imaging electroc ardiogra m 2023 024 [email or web address] Main Office, [address] [place] [address], [address], 07/15/2024 15:47:38 Medication Orders clotrima zole 10 mg klaudia 2024 025 [facility]2071, [address] [place], [address], 11/25/2024 13:20:54 Benadryl 25 mg capsule 2024 025 [facility]20[facility], [address] [place], [address], 11/25/2024 13:20:55 Biktarvy 50 mg-200 mg-25 mg tablet 2024 025 [facility]20[facility], [address] [place], [address], 11/25/2024 13:20:54 clotrima zole 10 mg klaudia 2024 025 [facility]20[facility], [address] [place], [address], 10/21/2024 14:29:45 Biktarvy 50 mg-200 mg-25 mg tablet 2024 025 [facility]20[facility], [address] [place], [address], 10/21/2024 14:30:45 voricona zole 200 mg/5 mL (40 mg/mL) oral suspensi on 2023 024 [facility]20[facility], [address] [place], [address], 05/20/2024 11:43:08 Serostim 6 mg subcutan eous solution [address], [address], 05/20/2024 11:29:08 megestro l 625 mg/5 mL (125 mg/mL) oral suspensi on 2023 024 [facility]20[facility], [address] [place], [address], 05/20/2024 11:30:41 Patient TargetsNo targets recorded. Patient Instructions Encounter Date Encounter Id Patient Instructions Last Modified By Organization Details Last Modified Time 10/21/2024 [id number] Clotrimazole Oral Lozenge (CLOTRIMAZOLE LOZENGE - MUCOUS MEMBRANE (ORAL)) cmartorell Not available 10/21/2024 14:29:44 Reason for Referral None Reported. Results Created Date Observation Date Name Description Value Unit Range Abnormal Flag Note LastModifiedBy Organization Detail LastModifiedTime 06/18/2006/04/2024 US, abdom en, compl ete No observ ation record ed. [facility], [place], [address], 06/18/2024 11:12:25 07/15/20 24 07/15/2024 elect rocar diogr am No observ ation record ed. [email or web address] Main Office [address] [place], [address], 07/15/2024 17:12:05 07/17/20 24 moe butts am No observ ation record ed. [email or web address] Main Office [address] [place], [address], 07/17/2024 14:15:04 Result Notes None recorded. Problems Name Problem SNOMED Code Status Onset Date Resolution Date Notes Provider Name and Address Organization Details Recorded Time Asthma 646135554 Active 2006 Asthma; snomeddesc ription: Asthma; Report Immunity to Registry: Yes; Asthma; Report Immunity to Registry: Yes; ReasonDate : 10/13/2019 ; ; Start Date : 10/13/2019 Asthma; snomeddesc ription: Asthma; Report Immunity to Registry: Yes; Not Available [facility] 4 06:58:53 Male hypogonad ism 19064229 Active 2012 Male hypogonadi sm; snomeddesc ription: Male hypogonadi sm; Report Immunity to Registry: Yes; Not Available [facility] 4 06:58:53 Diarrhea 29653039 Active 2006 Diarrhea; snomeddesc ription: Diarrhea; Report Immunity to Registry: Yes; Diarrhea, unspecifie d; snomeddesc ription: Diarrhea; Report Immunity to Registry: Yes; Not Available [facility] 4 06:58:53 Substance abuse 15530691 Active 2006 Substance abuse; snomeddesc ription: Substance abuse; Report Immunity to Registry: Yes; Notes: opiate/suad jolene/benzo ; Not Available [facility] 4 06:58:53 Human immunodef iciency virus infection 84881968 Active 1991 Human immunodefi ciency virus [HIV] disease; snomeddesc ription: Human immunodefi ciency virus infection; Report Immunity to Registry: Yes; Human immunodefi ciency virus infection; snomeddesc ription: Human immunodefi ciency virus infection; Report Immunity to Registry: Yes; Not Available [facility] 4 06:58:53 Steatosis of liver 973627454 Active 2006 Steatosis of liver; snomeddesc ription: Steatosis of liver; Report Immunity to Registry: Yes; Notes: u/s 2021; Fatty (change of) liver, not elsewhere classified ; snomeddesc ription: Steatosis of liver; Report Immunity to Registry: Yes; Notes: u/s 2021; Not Available [facility] 4 06:58:53 Herpesvir us infection 42623815 Active 2009 Herpesvira l infection, unspecifie d; snomeddesc ription: Herpes simplex; Report Immunity to Registry: Yes; Notes: HSV 1 pos serology; HSV 2 neg serology; Not Available [facility] 4 06:58:53 Fibromyos itis 82068594 Active 2006 Myalgia and myositis, unspecifie d; snomeddesc ription: Fibromyalg ia; Report Immunity to Registry: Yes; Notes: Chronic pain multiple/c hronic back pain; Not Available [facility] 4 06:58:53 Herpes simplex 27474943 Active 2009 Herpes simplex; snomeddesc ription: Herpes simplex; Report Immunity to Registry: Yes; Notes: HSV 1 pos serology; HSV 2 neg serology; Not Available [facility] 4 06:58:54 Kidney stone 35956952 Active 2001 Calculus of kidney; snomeddesc ription: Kidney stone; Report Immunity to Registry: Yes; Kidney stone; snomeddesc ription: Kidney stone; Report Immunity to Registry: Yes; Not Available [facility] 4 06:58:54 History of calculus of kidney 020747009 Active 2001 History of calculus of kidney; snomeddesc ription: History of calculus of kidney; Report Immunity to Registry: Yes; Not Available [facility] 4 06:58:54 Type B viral hepatitis 41879621 Active 2006 Type B viral hepatitis; snomeddesc ription: Type B viral hepatitis; Report Immunity to Registry: Yes; Notes: core ab pos; s ag neg; s ab neg HBV vL nondetecte d 2016; 2017; Not Available [facility] 4 06:58:54 Hyperplas ia of prostate 976331641 Active 2014 Hyperplasi a of prostate, unspecifie d, without urinary obstructio n and other lower urinary symptoms (LUTS); snomeddesc ription: Hyperplasi a of prostate; Report Immunity to Registry: Yes; Hyperplas ia of prostate; snomeddesc ription: Hyperplasi a of prostate; Report Immunity to Registry: Yes; Not Available [facility] 4 06:58:54 Anxiety 89867877 Active 1996 Anxiety; snomeddesc ription: Anxiety; Report Immunity to Registry: Yes; Not Available [facility] 4 06:58:54 Testicula r hypofunct ion 255808579 Active 2012 Other testicular hypofuncti on; snomeddesc ription: Male hypogonadi sm; Report Immunity to Registry: Yes; Not Available [facility] 4 06:58:54 Seasonal allergic rhinitis 873502092 Active 2012 Other seasonal allergic rhinitis; snomeddesc ription: Seasonal allergy; Report Immunity to Registry: Yes; Notes: hx nasal congestion ; Not Available [facility] 4 06:58:54 Onychomyc osis due to dermatoph yte 136398702 Active 2017 Tinea unguium; snomeddesc ription: Onychomyco sis; Report Immunity to Registry: Yes; Notes: feet digits; Not Available [facility] 4 06:58:55 Sleep apnea 13666277 Active 1999 Sleep apnea; snomeddesc ription: Sleep apnea; Report Immunity to Registry: Yes; Unspecifi ed sleep apnea; snomeddesc ription: Sleep apnea; Report Immunity to Registry: Yes; Not Available [facility] 4 06:58:55 Psychoact marj substance abuse 45714383 Active 2006 Other psychoacti ve substance abuse, uncomplica lucho; snomeddesc ription: Substance abuse; Report Immunity to Registry: Yes; Notes: opiate/suad jolene/benzo ; Not Available [facility] 4 06:58:55 Viral hepatitis B without hepatic coma 422261683 Active 2006 Unspecifie d viral hepatitis B without hepatic coma; snomeddesc ription: Type B viral hepatitis; Report Immunity to Registry: Yes; Notes: core ab pos; s ag neg; s ab neg HBV vL nondetecte d 2016; 2017; Not Available [facility] 4 06:58:55 Blood chemistry outside reference range 200748924 Active 2012 Other specified abnormal findings of blood chemistry; snomeddesc ription: Decreased testostero ne level; Report Immunity to Registry: Yes; Notes: hypogoandi sm; Not Available [facility] 4 06:58:55 Arthritis 8122829 Active 1998 Arthritis; snomeddesc ription: Arthritis; Report Immunity to Registry: Yes; Notes: Osteoatrth ris multiple; Not Available [facility] 4 06:58:55 History of urinary stone 571124771 Active 2001 Personal history of urinary calculi; snomeddesc ription: History of calculus of kidney; Report Immunity to Registry: Yes; Not Available [facility] 4 06:58:56 Fibromyal mika 360782488 Active 2006 Fibromyalg ia; snomeddesc ription: Fibromyalg ia; Report Immunity to Registry: Yes; Notes: Chronic pain multiple/c hronic back pain; Not Available [facility] 4 06:58:56 Lyme disease 15230819 Active 2017 Lyme disease; Report Immunity to Registry: Yes; Notes: tx cefuroxime x14 d (hx all Doxy); Not Available [facility] 4 06:58:56 Headache 80968798 Active 2008 Headache; snomeddesc ription: Headache; Report Immunity to Registry: Yes; Notes: migraine; Headache; snomeddesc ription: Headache; Report Immunity to Registry: Yes; Notes: migraine; Not Available [facility] 4 06:58:56 Hypertens marj disorder 95071287 Active 2017 Hypertensi ve disorder; snomeddesc ription: Hypertensi ve disorder; Report Immunity to Registry: Yes; Not Available [facility] 4 06:58:56 Arthropat hy 950333247 Active 1998 Arthropath y, unspecifie d, site unspecifie d; snomeddesc ription: Arthritis; Report Immunity to Registry: Yes; Notes: Osteoatrth ris multiple; Not Available [facility] 4 06:58:56 Essential hypertens ion 59329667 Active 2017 Essential (primary) hypertensi on; snomeddesc ription: Hypertensi ve disorder; Report Immunity to Registry: Yes; Not Available [facility] 4 06:58:57 Testoster one level below reference range 497345495 Active 2012 Decreased testostero ne level; snomeddesc ription: Decreased testostero ne level; Report Immunity to Registry: Yes; Notes: hypogoandi sm; Not Available [facility] 4 06:58:57 Insomnia 748275475 Active 1996 Insomnia; Report Immunity to Registry: Yes; Not Available [facility] 4 06:58:57 Anxiety state 455793581 Active 1996 Anxiety state, unspecifie d; snomeddesc ription: Anxiety; Report Immunity to Registry: Yes; Not Available [facility] 4 06:58:57 Onychomyc osis 504806848 Active 2017 Onychomyco sis; snomeddesc ription: Onychomyco sis; Report Immunity to Registry: Yes; Notes: feet digits; Not Available [facility] 4 06:58:57 Chronic hepatitis C 617834957 Active 2006 Chronic hepatitis C without mention [...] neg 2015;2017; 12/2021 F2 ; Not Available [facility] 4 06:58:57 Depressiv e disorder 16987300 Active 1996 Depressive disorder, not elsewhere classified ; snomeddesc ription: Depressive disorder; Report Immunity to Registry: Yes; Depressiv e disorder; snomeddesc ription: Depressive disorder; Report Immunity to Registry: Yes; Not Available [facility] 4 06:58:58 Seasonal allergy 284228982 Active 2012 Seasonal allergy; snomeddesc ription: Seasonal allergy; Report Immunity to Registry: Yes; Notes: hx nasal congestion ; Not Available [facility] 4 06:58:58 Loss of appetite 09393136 Active 2012 Anorexia; snomeddesc ription: Loss of appetite; Report Immunity to Registry: Yes; Loss of appetite; snomeddesc ription: Loss of appetite; Report Immunity to Registry: Yes; Not Available [facility] 4 06:58:58 Seizure 45701863 Active 2000 Seizure; snomeddesc ription: Seizure; Report [...] Immunity to Registry: Yes; Not Available [facility] 4 06:58:58 Problem Notes None recorded. Procedures Surgical History None recorded. Imaging Results Imaging Date Name Status LastModified by Organization Details LastModified Time 06/04/2024 US, abdomen, complete completed [email or web address] [place], [address], 06/18/2024 11:12:25 07/15/2024 electrocardiogram completed [email or web address], [address], 07/15/2024 17:12:05 07/17/2024 electrocardiogram completed [address], [place], [address], 07/17/2024 14:15:04 Procedure Notes None recorded. Medical Equipment None Reported. Allergies Allergen ID Allergen Name Allergen Category Reaction Reaction Severity Criticality Documentation Date Start Date Code Code System Note Provider Name and Address Organization Details Recorded Time 714 Reglan medicatio n Not available Not available Not available 10/31/20232012 9230 RxNorm Comme nt: adver se_ev ent_t ype: 61042 8002; ; Not Available [facility] 4 06:50:47 715 Motrin medicatio n Not available Not available Not available 10/31/2023201248 8 RxNorm Comme nt: adver se_ev ent_t ype: 52746 8002; ; Not Available [facility] 4 06:50:47 716 doxycycli ne Not available Not available Not available Not available 10/31/20232017 3640 RxNorm Comme nt: adver se_ev ent_t ype: 10251 8002; ; Not Available [facility] 4 06:50:47 Medications Name Sig Start Date [...] HORAS CUANDO SEA NECESARI O PARA EL DOLOR-AZ LD POR 10 D active Not Available [...] Not Available tramadol 50 mg tablet TOME BAHMAN TABLETA POR V A ORAL CADA OCHO HORAS PARA DOLOR CATHY CUANDO SEA NECESARI [...] Not Available Not Available No t Available dexametha sone 1 mg tablet TAKE 1 TABLET ORALLY DAILY TAKE AT 11 PM AT NIGHT AND GO FOR BLOOD WORK AT 8 AM NEXT MORNING active Not Available Not Available No [...] no; Not Available Not Available Not Available Banophen 25 mg capsule TOME BAHMAN O DOS CAPS POR V A ORAL A DIARIO CUANDO SEA NECESARI O PARA LA PICAZ N INSOMNIA active Not Available Not Available No t Available mirtazapi ne 45 mg tablet TAB [...] Available Liquid Nutrition oral 0 Quantity : 42245; Duration : 30; 0 refill(s ) 09/30 [...] yordy; Not Available Not Available Not Available esomepraz [...] Not Available Not Available No t Available enoxapari n 40 mg/0.4 mL subcutane ous [...] : 30; VACCINE_ IND: no; SU_FULL_ NAME: Cehryl scales; Not Available Not Available Not Available [...] conjugat e PCV 13; SU_FULL_ NAME: Stacia Edward scalesia; Not Available Not Available Not Available Robitussi [...] Available Not Available Eliquis 5 mg tablet TAKE 1 TAB BY MOUTH 2 TIMES DAILY active Not Available Not [...] l; Not Available Not Available Not Available Shingrix [...] le, quadriva lent; SU_FULL_ NAME: Cheryl Palomo l; VIS_DATE : 19:25:45 .0; Not Available Not Available Not Available Rocklatan 0.02 %-0.005 % eye drops ADMINIST ER 1 DROP INTO AFFECTED EYE(S) AT BEDTIME. active Not Available Not Available No t Available Evenity 210 mg/2.34 mL (105 mg/1.17 mL x 2) subcutane ous syringe active Not Available Not Available Not Available [facility] 60 mcg (15 mcg x 4)/0.5 mL intramusc ular susp. quadriva lent Quantity : ; 0 refill(s ) 2018 active VACCINE_ IND: yes; VACCINE_ NAME: influenz a, injectab le, quadriva lent; SU_FULL_ NAME: Cheryl Palomo l; VIS_DATE : 05:00:00 .0; Not Available Not Available Not Available Afluria Quad 60 mcg (15 mcg x 4)/0.5 mL intramusc ular susp. quadriva lent Quantity : ; 0 refill(s ) 2019 active VACCINE_ IND: yes; VACCINE_ NAME: influenz a, injectab le, quadriva lent; SU_FULL_ NAME: Cheryl Taylorsusan l; VIS_DATE : 14:37:48 .0; Not Available Not Available Not Available Prevnar 20 (PF) 0.5 mL intramusc ular syringe - Quantity : ; 0 refill(s ) 2022 active VACCINE_ IND: yes; VACCINE_ NAME: Pneumoco ccal conjugat e PCV20, polysacc haride [id number] conjugat e, adjuvant , PF; Not Available Not Available Not Available Vitals Date Recorded Body height Heart rate Respiratory rate Body temperature Body mass index (BMI) Body weight Systolic blood pressure Diastolic blood pressure Provider Name and Address Organization Details Last Updated DateTime 4 162.56 cm 109 /min 20 /min 97.2 [degF] 21.1 kg/m2 43551.8 6 g 111 mm[Hg] 90 mm[Hg] Jerome STREET MD [facility] 4 12:07:11 Date Recorded Body height Heart rate Respiratory rate Body temperature Body mass index (BMI) Body weight Systolic blood pressure Diastolic blood pressure Provider Name and Address Organization Details Last Updated DateTime 4 162.56 cm 89 /min 16 /min 98 [degF] 20.6 kg/m2 09485.0 8 g 123 mm[Hg] 90 mm[Hg] Jerome STRE[address] MD [facility] 4 14:28:38 Date Recorded Body height Provider Name an d Address Organization Details Last Updated DateTime 07/15/[address] MD [facility] 07/15/2024 15:22:29 Date Recorded Body temperature Body mass index (BMI) Body weight Respiratory rate Heart rate Systolic blood pressure Diastolic blood pressure Provider Name and Address Organization Details Last Updated DateTime 4 98.7 [degF] 20.6 kg/m2 53434.0 8 g 20 /min 87 /min 120 mm[Hg] 80 mm[Hg] Cheryl Street MD [address] [place] [address] [place], [address], [address] MD [facility] 4 15:46:02 Date Recorded Heart rate Body temperature Body weight Systolic blood pressure Diastolic blood pressure Provider Name and Address Organization Details Last Updated DateTime 10/21/2024 98 /min 98.2 [degF] 98815.2 6 g 118 mm[Hg] 97 mm[Hg] Lexis STRE[address] MD [facility] 5 12:04:23 Date Recorded Body height Heart rate Respiratory rate Body mass index (BMI) Body weight Systolic blood pressure Diastolic blood pressure Provider Name and Address Organization Details Last Updated DateTime 5 162.56 cm 81 /min 20 /min 24.9 kg/m2 34703.8 9 g 136 mm[Hg] 89 mm[Hg] Cheryl Street MD [address] [place], [address], [address] MD [facility] 5 15:01:34 Social History None recorded. Functional [...] Meningococcal MCV4O 9 completed Not Available [facility] 10/31/2023 06:54:49 zoster live 9 completed Not Available [facility] 10/31/2023 06:54:50 Influenza, split virus, quadrivalent, preservative 9 completed Not Available [facility] 10/31/2023 06:54:50 Influenza, split virus, quadrivalent, preservative 8 completed Not Available [facility] 10/31/2023 06:54:50 Influenza, split virus, quadrivalent, preservative 0 completed Not Available [facility] 10/31/2023 06:54:50 Past Encounters Encounter ID Performer Location Encounter Start Date Encounter Closed Date Diagnosis/Indication Diagnosis SNOMED-CT Code Diagnosis ICD10 Code Diagnosis Note [id number] Krista Belllynette Main Office [address] [place] [address] 05/25/2023 09:48:40 06/27/2023 09:16:16 Human immunodeficiency virus infection 27780571 B20 HIV. Continue Biktarvy 1 tab po [...] reviewed [address] MD Main Office [address] [place] [address] 08/24/2023 09:33:00 08/24/2023 10:46:09 Human immunodeficiency virus infection 03911971 B20 HIV. Continue Biktarvy 1 tab po [...] /Tivicay.s afe sex.labs Septemberlan of care reviewed [address] MD Main Office [address] [place] [address] 11/12/2023 11:34:42 11/16/2023 15:00:47 Human immunodeficiency virus infection 49882859 B20 HIV.Contin ue Biktarvy 1 tab po qd.U=Upt aware of PreP availabili ty.condom use.plan of care reviewed Adult [facility] th examination 013163264 Z00.[address] MD Main Office [address] [place] [address], [place] [address] 11/21/2023 10:59:43 11/23/2023 14:55:[address] MD Main Office [address] [place] [address] 01/14/2024 09:27:39 01/16/2024 13:51:[address] MD Main Office [address] [place] [address] 01/16/2024 10:24:39 01/16/2024 11:50:10 Human immunodeficiency virus infection 87214336 B20 HIV.Contin ue Biktarvy 1 tab po qd.U=Upt aware of PreP availabili ty.condom use.labs todayplan of care reviewed Candidiasis of mouth 797 58067 B37.0 nystatin 5cc po qid x 14 days. swish and spit.call with any side effects.ba cterial/fu ngal swab obtained. 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 [address] MD Main Office [address] [place] [address] 02/14/2024 12:00:04 02/14/2024 12:24:19 Human immunodeficiency virus infection 72266145 B20 HIV.Contin ue Biktarvy 1 tab po qd.U=Upt aware of PreP availabili ty.DoxyPEP reviewedco ndom use.labs todayplan of care reviewed Methicilli n resistant Staphylococcus aureus infection 653606485 A49.02 swab culture 01/2024 Candidiasi s of the esophagus 58968072 B37.81 sandy glabratafl uconazole 100mg po qd x 14 dayscall with any side effects. Weight loss 98988065 R63 .4 contributi ng factor sandy, MRSA, HIV among othermight benefit from Serostim.w ill review with himG tube [address] MD Main Office [address] [place] [address] 02/21/2024 11:08:05 02/21/2024 12:09:56 Human immunodeficiency virus infection 22548813 B20 HIV.Contin ue Biktarvy 1 tab po qd.complia nce reviewedU= Upt aware of PreP availabili ty.DoxyPEP reviewedco ndom use.labs todayplan of care reviewed Candidiasi s of the esophagus 95683014 B37.81 sandy glabratato complete fluconazol e 100mg po bid x 14 days: (10mg/ml) 10ml by G tube bidcall with any side effects. Methicilli n resistant Staphylococcus aureus infection 675915446 A49.02 swab culture urr ently on Bactrim oral suspension (200mg- 40mg/5ml) since 02/15-20ml q 12 hrs G tube x 10 days Cachexia a ssociated with AIDS 574562583 B20 R64 weight loss. frail. progressin g.contribu ting factor sandy, MRSA, HIV among other. G tubeSerost im 6mg sq qd will be prescribed with the goal of helping w weight gain, increase muscle mass gain, and increase enduranceh e has visiting nurse who could assist with daily injections . [address] MD Main Office [address] [place] [address] 02/25/2024 10:24:53 02/25/2024 11:09:27 Human immunodeficiency virus infection 02916200 B20 HIV.Contin ue Biktarvy 1 tab po qd.complia nce reviewedU= Ucondom use.labs todayplan of care reviewed Candidiasi s of the esophagus 52908069 B37.81 sandy glabratawi ll continue fluconazol e 200 mg po qd x 14 days: (10mg/ml) 10ml by G tube QD;will on next appointmen t for further tx va suppressio n tx.call with any side effects. Cachexia a ssociated with AIDS 243125598 B20 R64 weight loss. frail. progressin g.approved Serostim 6mg sq qd; awaiting delivery to the office. will be prescribed with the goal of helping w weight gain, increase muscle mass gain, and increase enduranceh e has visiting nurse who could assist with daily injections .ensure tidmegace 625 mg qd. Methicilli n resistant Staphylococcus aureus infection [id number] A49.02 swab culture 01/2024will complete 10 days of Bactrim oral suspension (200mg- 40mg/5ml) since 02/15-20ml q 12 hrs G tube on 02/27/[address] MD Main Office [address] [place] [address] 03/14/2024 10:24:00 03/14/2024 10:29:25 Cachexia associated with AIDS 243543684 R64 B20 gained 2 pounds. probably improved sandy esophagiti s 2nd to inhaled steroids.S Tart Serostim 6mg s/c qd abdomen. first dose administer ed today. Tolerated well; goalis to increase weight, endurance and muscle massHe will have [employer] and nurse help with daily injections .potential side effects reviewed.t o call with any concernshe will parts picker Megace today, and start it as well(G tube) qd to increase apetitte Human immunodeficiency virus infection 32454355 B20 HIV.Contin ue Biktarvy 1 tab po qd.complia nce reviewed Candidiasi s of the esophagus B37.81 sandy glabratawi ll continue 2 more weeks of fluconazol e 200 mg po qd x 14 days: (10mg/ml) 10ml by G tube QD;might benefit from qw suppressio n tx.call with any side effects. [address] MD Main Office [address] [place] [address] 04/18/2024 09:52:00 04/18/2024 11:19:01 Cachexia associated with AIDS 881133551 R64 B20 124 lbs. gained weightcont inue Serostim 6mg s/c qd abdomen. goalis to increase weight, endurance and muscle masscontin ue Megace G tube qdCNA and nurse helping with compliance and tx.potenti al side effects reviewed.t o call with any concerns Human immunodeficiency virus infection 15881807 B20 HIV.Contin ue Biktarvy 1 tab po qd.complia nce reviewedla bs today Candidiasi s of the esophagus 96915339 B37.81 sandy glabratawi ll continue fluconazol e 200 (10ml) mg G tube qw for suppressio n tx.call with any side effects. Aspiration pneumonia 422 324909 J69.0 get discharge summaryon antibiotic ;eat standing or sitting; and [place] [address] MD Main Office [address] [place] [address] 05/20/2024 10:17:53 05/20/2024 12:44:49 Cachexia associated with AIDS 564626878 R64 B20 continue Serostim 6mg s/c qd abdomen. goal is to increase weight, endurance and muscle masscontin ue Megace G tube qd 5cc qdCNA and nurse helping with compliance and tx.potenti al side effects reviewed.t o call with any concerns Human immunodeficiency virus infection 50186792 B20 HIV.Contin ue Biktarvy 1 tab po qd.padmini butt bs today Candidiasi s of the esophagus 73421567 B37.81 sandy glabrataho ld fluconazol e for nowSTART 1 tab po bid x 21 says for esophageal sandy glabrata.c all with any side effects. [address] MD Main Office [address] [place] [address] 06/18/2024 10:10:09 06/18/2024 11:12:33 Cachexia associated with AIDS 480200592 R64 B20 continue Serostim 6mg s/c qd abdomen. goal is to increase weight, endurance and muscle massCNA and nurse helping with compliance and tx.megace on holdpotent ial side effects reviewed.t o call with any concerns Human immunodeficiency virus infection 33709301 B20 HIV.Contin ue Biktarvy 1 tab po qd.padmini butt bs today Inflammato ry disease of liver 641753052 K75.9 Suspect 2nd to concomitan t medication s. ongoingdo not re-start fluconazol e nor megacenega tive infectious and non-infect ious workupto call or ER if jaundice, abd pain, n/v/d marce huertas History of calculus of kidney 691911727 Z87.442 u/s 05/[address] scan 02/2024hydr ation Aspiration pneumonia 422 019056 J69.0 s/p aspiration on CT AngioNPO per instructio n given to him in hospital; nutrition by G tubes/p (ceftriaxo ne,Azithro ,Flagyl while in Hospital;d ischarged on azithro and cefpodoxim e x 3 days which he completed. leg elevationa void sedating meds as much as possible Deep venou s thrombosis of lower extremity 867291277 I82.409 left lower extremity doppler showed DVT of gastrocnem ius vein;on tx w w Eliquis bid . Pulmonary embolism [address] Angio was positive for Acute lobar PEs/p heparin; ongoing Eliquis bidmed list reviewed.n o drug use for years. not on maintenanc e tx.denies current ETOH use. [address] MD Main Office [address] [place] [address] 07/15/2024 15:10:10 07/15/2024 15:45:30 Cachexia associated with AIDS 817054632 R64 B20 continue Serostim 6mg s/c qd abdomen. goal is to increase weight, endurance and muscle masspotent ial side effects reviewed.t o call with any concerns Human immunodeficiency virus infection 27563287 B20 HIV.Contin ue Biktarvy 1 tab po qd.complia nce reviewedla bs Candidiasi s of the esophagus 91510060 B37.81 on clotrimazo le. swish and spit qd Medication monitoring [address] MD Main Office [address] [place] [address] 10/21/2024 12:22:54 10/21/2024 16:48:51 Cachexia associated with AIDS 667045191 R64 B20 improvedco ntinue Serostim 6mg s/c qd abdomen. goal is to increase weight, endurance and muscle masspotent ial side effects reviewed.m ay start decreasing dose in 1-2 months if further weight gainon Boost protein shakesto call with any concerns Human immunodeficiency virus infection 09627131 B20 HIV.Contin ue Biktarvy 1 tab po qd.complia nce reviewedla bs Candidiasi s of the esophagus 85144878 7.81 on clotrimazo le. swish and spit qd/BID PRN [address] MD Main Office [address] [place] [address] 11/25/2024 11:48:55 11/25/2024 14:20:54 Cachexia associated with AIDS 341296591 R64 B20 improvedco ntinue Serostim 6mg s/c [...] with any concerns Human immunodeficiency virus infection 88053636 B20 HIV.Contin ue Biktarvy 1 tab po qd.complia nce reviewedla bs Candidiasi s of the esophagus 22844652 B37.81 off/on; recurrento n clotrimazo le. swish and spit qd/BID PRN for suppressio n Insomnia 616372892 G47.0 0 benadryl capsules requested by patient [...] Perry Member ID Guarantor Name 05/20/2024 1 [facility] - DOS ON OR AFTER 2022 - MEDICARE ADVANTAGE [place] (MEDICARE REPLACEMENT/AD VANTAGE - PPO) [facility] [id number] [facility] 06/18/2024 1 [facility] - DOS ON OR AFTER 2022 - [place]IC[place]AGE [place] ([place]AC[place]/AD VANTAGE - PPO) [facility] [id number] [facility] 07/15/2024 1 [facility] - DOS ON OR AFTER 2022 - [place]IC[place]AGE [place]/AD VANTAGE - PPO) [facility] [id number] [facility] 10/21/2024 1 [facility] - DOS ON OR AFTER 2022 - [place]IC[place]/AD VANTAGE - PPO) [facility] [id number] [facility] 11/25/2024 1 [facility] - DOS ON OR AFTER 2022 - [place]IC[place]AGE [place]AC[place]/AD VANTAGE - PPO) [facility] [id number] [facility] Notes Date Note Type Note Provider [...] VL nondetetcted01/2024 HIV VL nondetcetd;eGFR=76;AST /ALT wnl;11/2023 OU0=038; HIV VLnondetceted; no infections.01/2022 HI5=667; HIV VL nondetceted; eGFR>60; ALt/AST wnl; syphilis neg; GC/chlamydia neg Cheryl Street MD [address] [place] [address], [phone], [facility] [address] [facility] 05/20/2024 12:17:47 06/18/2024 text/html HIVOn Biktarvy 1 tab po qd.reports daily compliance. denies missing dose.resolved thrush. hx recurrence. fluconazole and voriconazole on hold. Pt reports was hospitalized at [facility] 06/10/24-06/13/24 ( got to ER on [...] VL nondetetcted01/2024 HIV VL nondetcetd;eGFR=76;AST /ALT wnl;11/2023 TY1=633; HIV VLnondetceted; no infections.01/2022 OV5=870; HIV VL nondetceted; eGFR>60; ALt/AST wnl; syphilis neg; GC/chlamydia neg Cheryl Street MD [address] [place] [address], [phone], [address] [facility] 06/18/2024 18:19:56 07/15/2024 text/html HIVOn Biktarvy 1 tab po qd.reports daily compliance. denies missing dose.thrush on/off: recurrence. on clotrimazole daily .stable weight 120lbshe says he is eating more and apetitte has improvedfeels strongergetting serostim dailyno hospitalizations since he was last seenmed list reviewed.On Eliquis and enoxaparin. recent PE/DVT.VL nondetected03/2024 HIV VL nondetctedHIV VL nondetetcted01/2024 HIV VL nondetcetd;eGFR=76;AST /ALT wnl;11/2023 WG9=027; HIV VLnondetceted; no infections. Cheryl Street MD [address] [place] [address], [phone], [address] [facility] 07/15/2024 15:47:48 10/21/2024 text/html HIVOn Biktarvy 1 [...] notify site start date and confirm medication. LAB ANIMAL TECHNICIAN in room with his consent. Cheryl Street MD [address] [place] [address], [phone], [facility] [address] [facility] 10/21/2024 14:34:28 11/25/2024 text/html HIVOn Biktarvy 1 [...] cyst removal in recent weeks. outpatient/day procedure. LAB ANIMAL TECHNICIAN in room with his consent. 07/2025 HIV VL nondetceted; ALt/AST wnl; eGFR>60; YM4=[address] MD [address] [place] [address], [phone], [place] - [address] [facility] 11/26/2024 15:09:42
--- OUTSIDE RECORDS SUMMARY | 2024-12-17 09:25 | XMS_ITS | Data Portability ---
Author Organization [employer] [facility] [place] [facility] [place] Address [address] [place] [address] Care Team Providers Care Gravity Flow Irrigator Name Role Phone HIM [facility] OTHER [facility] OTHER Assessment No assessment recorded. Plan [...] Not available Not available Not available 07/08/2024 42894 RxNorm Not Available [facility] - production 4 [...] SNOMED-CT Code Diagnosis ICD10 Code Diagnosis Note 12185 ERLINDA HOLLIDAY MD Main - [facility] [address] [place] [address] 03/06/2024 16:50:44 03/07/2024 17:38:50 Lethargy 423729298 R53.83 Evaluation in the field was performed by my layout artist colleague. As noted above, I provided real-time [...] He is afebrile. Per discussion with the layout artist, the patient looked lethargic, walked with an [...] n. The patient was transferre d to [facility] for further evaluation and treatment. His PCP was informed of the transfer to the ED. Primary care, consider__ _ Dispositio n:[facility] Health Concerns Section Related Observation LastModified by Organization Jazzy ls LastModified Time None Recorded Concern Status LastModified by Organization Details LastModified Time None Recorded Advance Directives Directive None Recorded Payers Encounter Date Sequence Insurance Name Policy Number Policy Perry Covered Member ID Perry Member ID Guarantor Name 03/06/2024 1 [facility] - DOS ON OR AFTER 2022 - DUAL ELIGIBLE - CARE HOME OPTIONS AND ONE CARE (MEDICARE REPLACEMENT/ADV ANTAGE - HMO) Benjamin Juan David [id number] [facility] Juan David Notes Date Note [...] ................. ................. ................. ................. ................. ................. ..... Halal Butcher Note From Francisco Ley: Dispatched to above address for headache sore throat. On arrival patient met [facility] at the door. Initially patient denied calling for medical help or having any symptoms. [facility]8 confirmed patient name and address, after this [...] focus on current situation, poor affect, lethargic. [facility] contacted, spoke with Dr. Holliday, advised of patient complaints and exam findings. [facility] agreed further evaluation in the ER is necessary for this patient. Patient agreed to this. Patients neighbor who assists patient arrived to check on him. She reports this doesn't seem like his normal mentation but cannot be sure. 911 called. [facility] responded. Verbal report given to [facility] Halal Butcher. [place] layout artist took over patient care. [facility] clear. EOR. ................. ................. ................. ................. ................. ................. ................. ................. ..... Disposition: Shahzad HOLLIDAY MD [address] [facility],[address], [place], [address], [place] KEERTHI BLOCK 03/06/2024 18:02:19
--- OUTSIDE RECORDS SUMMARY | 2024-12-17 09:25 | XMS_ITS ---
Demographics Address [address] [place] [address] Preferred Language es Marital Status Unknown Amish Affiliation Unknown Race White Ethnic Group Not or Lati no Author Organization [facility] Address [address] [place] [address] Care Team Providers Care Social Studies Teacher Name Role Phone Terese Rivera Primary Care Provider Pepe Dangelo [phone] Encounters Encounter Location Date Provider Diagnosis [facility] [address] [place] [address] 10/26/2024 Pepe Stephenson Plan Of Treatment Next Appt Details Provider Name:Pepe Stephenson , 02/12/2025 11:00:00 AM, [address], [address], [place], [address], Progress Notes * DUFFY, VICKIEDOB:1965 (59 yo M)Acc No.[id number]:10/26/2024 Patient:?VICKIE DUFFY :1965???Age:59 Y???Sex:Male Address:[address], [place] [address] * * Date:?
--- OUTSIDE RECORDS SUMMARY | 2024-12-17 09:25 | XMS_ITS ---
Demographics Address [address] [facility] [address] [place] [address] Preferred Language es Marital Status Unknown Sikh Affiliation Unknown Race White Ethnic Group Not or Lati no Author Organization [facility] Address [address] [place] [address] Care Team Providers Care Shoe Dresser Name Role Phone Terese Rivera Primary Care Provider Pepe Dangelo Unavailable [phone] Allergies Allergen (clinical drug ingredient) Drug/Non Drug [...] 10/09/2024 Encounters Encounter Location Date Provider Diagnosis [facility] [address] [place] [address] 10/09/2024 Pepe Stephenson Dysphagia R13.10 ; Unspecified protein-calorie malnutrition E46 and PEG (percutaneous endoscopic gastrostomy) adjustment/replacement /removal Z43.1 Assessments Encounter Date Diagnosis (ICD Code) Assessment Notes Treatment Notes Treatment Clinical Notes Section Notes 10/09/2024 Dysphagia (ICD-10 - R13.10) Once we have the results of the [facility] GI series from 10/2024 and see [...] we have the res ults of the [facility] GI series from 10/2024 and see [...] Name:Pepe Stephenson , 02/12/2025 11:00:00 AM, [address] [facility], [address], [place], [address], Progress Notes * VICKIE DUFFYDOB:1965 (59 yo M)Acc No.[id number]:10/09/2024 Progress Notes Patient:?VICKIE DUFFY Provider:?Pepe Stephenson MD :1965???Age:59 Y???Sex:Male Hansel e:10/09/2024 Address:[address] [place], [place] [address] Pcp:Terese Keenan Subjective: * Chief Complaints: * ???Patient presents today fo r a PATIENT RECEIVED RECALL LETTER * HPI: ???incontinence:? I saw Vickie in the office today for evaluation of his previous history of dysphagia with associated weight loss and subsequent placement of a G-tube. He is accompanied by his BODY AND FENDER MECHANIC, Good, who helped with interpreting. ?I last [...] DVTs and pulmonary emboli last Fall at [facility] and has been on Eliquis for that since early June of 2024. He is scheduled to see Dr. Wray for follow up next month. He is also scheduled for a barium swallow next month with the speech and swallowing department through [facility]. ?Vickie reports that he generally feels [...] past year??No,?Points?0,?Interpretation?Negative.?Miscellaneous:?Marital status: single. Occupation: Retired from [employer]--had worked their for 27 years. ???Nonsmoker; no [...] Codes:?G9711 PT W/ DX PAST HX TOTAL COLECTOMY/FXP5720V TOBACCO NON- [id number] BP SCR NOT PRFRM REC REASON NOS * Preventive Medicine:? ??Screenings:?Fall Risk Screening?Fall Risk Assessment:?No falls in the past year,?Screening:?No falls in the past year,?Assessment:?Not performed, no reason specified,?Plan of Care:?Not documented, no reason specified.? * Follow Up:?January or February for o ffice Gtube removal * * Sign off status: Completed true * Provider:?Pepe Stephenson MD Date:? 025 Generated for Darryl ng/Hannah/Javier on:?12/17/2024 09:24 AM EDT History and Physical Notes * HPI (History of Present Illness) Category Sub-Category Detail Notes Category Not es incontinence I saw Vickie in the office today for evaluation of his previous history of dysphagia with associated weight loss and subsequent placement of a G-tube. He is accompanied by his BODY AND FENDER MECHANIC, Good, who helped with interpreting. I last [...] DVTs and pulmonary emboli last Fall at [facility] and has been on Eliquis for that since early June of 2024. He is scheduled to see Dr. Wray for follow up next month. He is also scheduled for a barium swallow next month with the speech and swallowing department through [facility]. Vickie reports that he generally feels [...]
--- OUTSIDE RECORDS SUMMARY | 2024-12-17 09:25 | XMS_ITS | Clinical Summary ---
Author Organization [facility] Address [address] [place] [address] Care Team Providers Care Utility Bill Collection Clerk Name Role Phone Zora Arce PA-C Primary [...] EC tabletIndications:H IV (human immunodeficiency virus infection) ([facility]) Take 1 Tab by mouth once daily. [...] NUTRITION) liquidIndications:H IV (human immunodeficiency virus infection) ([facility]) Take 1 Can by mouth 3 (three) [...] 0.65 % nasal sprayIndications:As thma, intermittent, uncomplicated ([facility]) Place 1 [place] into the nostril(s) as needed for congestion. 60 mL 6 016 Active omeprazole (PRILOSEC) [address] capsuleIndications: Dyspepsia Take 1 Cap by mouth every morning before breakfast. Do not crush or chew. 30 Cap 3 016 Active albuterol sulfate hfa (PROAIR HFA) 90 mcg/actuation inhalerIndications: Asthma, intermittent, uncomplicated ([facility]) Inhale 2 Puffs into the lungs every 4 (four) hours as needed for shortness of breath. Int asthma 18 g 6 016 Active Active Problems Problem Noted Date Diagnosed Date Asthma, mild intermittent ([facility]) 05/06/2015 Fibromyalgia 01/27/2015 Generalized anxiety disorder 01/27/2015 Seizure disorder ([facility]) 01/27/2015 Major depressive disorder, r ecurrent, severe without psychotic features ([facility]) 01/27/2015 Overview (01/27/2015): Has therapist at [facility] HIV (human immunodeficiency virus infection) ( [facility]) 01/27/2015 Chronic back pain 01/27/2015 Hepatitis C antibody test positive 01/27/2015 Overview (01/27/2015): Sp treatment per Dr Street Immunizations Immunization Administration Dates Next Due INFLUENZA, SEASONAL, INJECTABLE [...] Plan of Treatment Not on file [place] Member Subscriber Plan / Payer ( fective 2015-Present) Name:Benjamin Fall Relation to Subscriber:Self Name:Benjamin Fall Payer ID:[id number] Group ID:Not on file Type:Medicaid Address: [address] DENTAL Care Teams Utility Bill Collection Clerk Relationship Specialty Start Date End Date Zora Arce PA-C [address] [place] [address] PCP - General 11/05/18
== END 2024-12-17 09:24 | disposition home or self-care (01) ==
LOC: HO.HUSH 08:57
PROVIDERS: PCP Student in an Organized Health Care Education/Training Program; Visit Provider Nurse Practitioner Family
DX: R39.9 Unspecified symptoms and signs involving the genitourinary system (principal); R39.14 Feeling of incomplete bladder emptying; N39.43 Post-void dribbling
CPT/HCPCS: 99204

== ENCOUNTER → 2024-12-17 08:57 | Outpatient (BNVA) | payer OTHER, SELFPAY | PROVIDERS: PCP Student in an Organized Health Care Education/Training Program; Visit Provider Nurse Practitioner Family | DX: N39.43 Post-void dribbling (principal); R39.14 Feeling of incomplete bladder emptying; N20.0 Calculus of kidney | CPT/HCPCS: 51798; 81003; 99202 ==

== ENCOUNTER 2024-12-23 10:04 | Outpatient (AMB) | payer OTHER, SELFPAY ==
--- NOTE | 2024-12-23 10:29 | AM.OFFVISNUR ---
Intake Visit Reasons: Evenity #3 Allergies Seasonal Allergies Allergy (Intermediate, Verified 12/17/24 09:01) Eye Drainage codeine [From Tylenol-Codeine #3] Allergy (Mild, Verified 12/17/24 09:) Rash levofloxacin [From Levaquin] Allergy (Mild, Verified 12/17/24 09:01) Rash metoclopramide [From Reglan] Allergy (Mild, Verified 12/17/24 09:) Rash acetaminophen [Tylenol-Codeine #3] Allergy (Unknown, Verified 12/17/24 09:) Rash Penicillins [PENICILLINS] Allergy (Unknown, Verified 12/17/24 09:01) Rash ibuprofen [From Motrin] Adverse Reaction (Unknown, Verified 12/17/24 09:) Reflux Office Meds romosozumab-aqqg 210 mg/2.34 mL(105 mg/1.17 mL x2)subcutaneous syringe Performing Provider: Ritu Scott MD Performing Location: [facility] Administered by: Na Croft RN on 12/23/24 10:29 Dose Route Admin Location Dispensed Lot Number Expiration Date [facility] Sheet Folder 210 mg subcut bilateral upper arms 2.34 mL [id number] 12/08/26 00222-951-99 [facility] Assessment & Plan Assessment & Plan Orders: Orders AMB Romosozumab Injection Patient Supplied Today M81.0 - Age-related osteoporosis without current pathological fracture Medications: New romosozumab-aqqg 210 mg (2.34 mL) subcut ONCE 2.34 mL 0RF M81.0 - Age-related osteoporosis without current pathological fracture Coding
--- OUTSIDE RECORDS SUMMARY | 2024-12-23 11:44 | XMS_ITS | Data Portability ---
Author Organization LYNN WHITE MD [facility], Main Office Address [address] [place] [address] Assessment No assessment recorded. Plan of Treatment Reminders Order Date Submit Date Provider Last Modified By Organization Details Last Modified Time Details Appointments RESEARCH FOLLOW UP 2024 10:30A [address] MD Not available Not available Not available Lab None recorded . Referral None recorded . Procedures None recorded . Surgeries None recorded . Imaging electroc ardiogra m 2023 024 [email or web address] Main Office, [address] [place] [address], [address], 07/15/2024 15:47:38 Medication Orders clotrima zole 10 mg klaudia 2024 025 [id number], [address] [place], [address], 11/25/2024 13:20:54 Benadryl 25 mg capsule 2024 025 [id number], [address] [place], [address], 11/25/2024 13:20:55 Biktarvy 50 mg-200 mg-25 mg tablet 2024 025 [facility], [address] [place], [address], 11/25/2024 13:20:54 clotrima zole 10 mg klaudia 2024 025 [facility], [address] [place], [address], 10/21/2024 14:29:45 Biktarvy 50 mg-200 mg-25 mg tablet 2024 025 [facility], [address] [place], [address], 10/21/2024 14:30:45 voricona zole 200 mg/5 mL (40 mg/mL) oral suspensi on 2023 024 [facility], [address] [place], [address], 05/20/2024 11:43:08 Serostim 6 mg subcutan eous solution [address], [address], 05/20/2024 11:29:08 megestro l 625 mg/5 mL (125 mg/mL) oral suspensi on 2023 024 [facility], [address] [place], [address], 05/20/2024 11:30:41 Patient TargetsNo targets recorded. Patient Instructions Encounter Date Encounter Id Patient Instructions Last Modified By Organization Details Last Modified Time 10/21/2024 [id number] Clotrimazole Oral Lozenge (CLOTRIMAZOLE LOZENGE - MUCOUS MEMBRANE (ORAL)) [email or web address] Not available 10/21/2024 14:29:44 Reason for Referral None Reported. Results Created Date Observation Date Name Description Value Unit Range Abnormal Flag Note LastModifiedBy Organization Detail LastModifiedTime 06/18/2006/04/2024 US, abdom en, compl ete No observ ation record ed. [email or web address] [facility], [place], [address], 06/18/2024 11:12:25 07/15/20 24 07/15/2024 elect rocar diogr am No observ ation record ed. [email or web address] Main Office [address] [place], [address], 07/15/2024 17:12:05 07/17/20 24 moe butts am No observ ation record ed. [email or web address] Main Office [address] [place], [address], 07/17/2024 14:15:04 Result Notes None recorded. Problems Name Problem SNOMED Code Status Onset Date Resolution Date Notes Provider Name and Address Organization Details Recorded Time Asthma [id number] Active 2006 Asthma; snomeddesc ription: Asthma; Report Immunity to Registry: Yes; Asthma; Report Immunity to Registry: Yes; ReasonDate : 10/13/2019 ; ; Start Date : 10/13/2019 Asthma; snomeddesc ription: Asthma; Report Immunity to Registry: Yes; Not Available [facility] 4 06:58:53 Male hypogonad ism 47384608 Active 2012 Male hypogonadi sm; snomeddesc ription: Male hypogonadi sm; Report Immunity to Registry: Yes; Not Available [facility] 4 06:58:53 Diarrhea 57175779 Active 2006 Diarrhea; snomeddesc ription: Diarrhea; Report Immunity to Registry: Yes; Diarrhea, unspecifie d; snomeddesc ription: Diarrhea; Report Immunity to Registry: Yes; Not Available [facility] 4 06:58:53 Substance abuse 81094393 Active 2006 Substance abuse; snomeddesc ription: Substance abuse; Report Immunity to Registry: Yes; Notes: opiate/suad jolene/benzo ; Not Available [facility] 4 06:58:53 Human immunodef iciency virus infection 67195501 Active 1991 Human immunodefi ciency virus [HIV] disease; snomeddesc ription: Human immunodefi ciency virus infection; Report Immunity to Registry: Yes; Human immunodefi ciency virus infection; snomeddesc ription: Human immunodefi ciency virus infection; Report Immunity to Registry: Yes; Not Available [facility] 4 06:58:53 Steatosis of liver 476007708 Active 2006 Steatosis of liver; snomeddesc ription: Steatosis of liver; Report Immunity to Registry: Yes; Notes: u/s 2021; Fatty (change of) liver, not elsewhere classified ; snomeddesc ription: Steatosis of liver; Report Immunity to Registry: Yes; Notes: u/s 2021; Not Available [facility] 4 06:58:53 Herpesvir us infection 59204144 Active 2009 Herpesvira l infection, unspecifie d; snomeddesc ription: Herpes simplex; Report Immunity to Registry: Yes; Notes: HSV 1 pos serology; HSV 2 neg serology; Not Available [facility] 4 06:58:53 Fibromyos itis 30193128 Active 2006 Myalgia and myositis, unspecifie d; snomeddesc ription: Fibromyalg ia; Report Immunity to Registry: Yes; Notes: Chronic pain multiple/c hronic back pain; Not Available [facility] 4 06:58:53 Herpes simplex 86145406 Active 2009 Herpes simplex; snomeddesc ription: Herpes simplex; Report Immunity to Registry: Yes; Notes: HSV 1 pos serology; HSV 2 neg serology; Not Available [facility] 4 06:58:54 Kidney stone 51598908 Active 2001 Calculus of kidney; snomeddesc ription: Kidney stone; Report Immunity to Registry: Yes; Kidney stone; snomeddesc ription: Kidney stone; Report Immunity to Registry: Yes; Not Available [facility] 4 06:58:54 History of calculus of kidney 493744717 Active 2001 History of calculus of kidney; snomeddesc ription: History of calculus of kidney; Report Immunity to Registry: Yes; Not Available [facility] 4 06:58:54 Type B viral hepatitis 38462113 Active 2006 Type B viral hepatitis; snomeddesc ription: Type B viral hepatitis; Report Immunity to Registry: Yes; Notes: core ab pos; s ag neg; s ab neg HBV vL nondetecte d 2016; 2017; Not Available [facility] 4 06:58:54 Hyperplas ia of prostate 294250280 Active 2014 Hyperplasi a of prostate, unspecifie d, without urinary obstructio n and other lower urinary symptoms (LUTS); snomeddesc ription: Hyperplasi a of prostate; Report Immunity to Registry: Yes; Hyperplas ia of prostate; snomeddesc ription: Hyperplasi a of prostate; Report Immunity to Registry: Yes; Not Available [facility] 4 06:58:54 Anxiety 69955883 Active 1996 Anxiety; snomeddesc ription: Anxiety; Report Immunity to Registry: Yes; Not Available [facility] 4 06:58:54 Testicula r hypofunct ion 656769298 Active 2012 Other testicular hypofuncti on; snomeddesc ription: Male hypogonadi sm; Report Immunity to Registry: Yes; Not Available [facility] 4 06:58:54 Seasonal allergic rhinitis 636836874 Active 2012 Other seasonal allergic rhinitis; snomeddesc ription: Seasonal allergy; Report Immunity to Registry: Yes; Notes: hx nasal congestion ; Not Available [facility] 4 06:58:54 Onychomyc osis due to dermatoph yte 527612387 Active 2017 Tinea unguium; snomeddesc ription: Onychomyco sis; Report Immunity to Registry: Yes; Notes: feet digits; Not Available [facility] 4 06:58:55 Sleep apnea 07378960 Active 1999 Sleep apnea; snomeddesc ription: Sleep apnea; Report Immunity to Registry: Yes; Unspecifi ed sleep apnea; snomeddesc ription: Sleep apnea; Report Immunity to Registry: Yes; Not Available [facility] 4 06:58:55 Psychoact marj substance abuse 18322433 Active 2006 Other psychoacti ve substance abuse, uncomplica lucho; snomeddesc ription: Substance abuse; Report Immunity to Registry: Yes; Notes: opiate/suad jolene/benzo ; Not Available [facility] 4 06:58:55 Viral hepatitis B without hepatic coma 395422376 Active 2006 Unspecifie d viral hepatitis B without hepatic coma; snomeddesc ription: Type B viral hepatitis; Report Immunity to Registry: Yes; Notes: core ab pos; s ag neg; s ab neg HBV vL nondetecte d 2016; 2017; Not Available [facility] 4 06:58:55 Blood chemistry outside reference range 211444266 Active 2012 Other specified abnormal findings of blood chemistry; snomeddesc ription: Decreased testostero ne level; Report Immunity to Registry: Yes; Notes: hypogoandi sm; Not Available [facility] 4 06:58:55 Arthritis 4414734 Active 1998 Arthritis; snomeddesc ription: Arthritis; Report Immunity to Registry: Yes; Notes: Osteoatrth ris multiple; Not Available [facility] 4 06:58:55 History of urinary stone 581410105 Active 2001 Personal history of urinary calculi; snomeddesc ription: History of calculus of kidney; Report Immunity to Registry: Yes; Not Available [facility] 4 06:58:56 Fibromyal mika 971940793 Active 2006 Fibromyalg ia; snomeddesc ription: Fibromyalg ia; Report Immunity to Registry: Yes; Notes: Chronic pain multiple/c hronic back pain; Not Available [facility] 4 06:58:56 Lyme disease 91309209 Active 2017 Lyme disease; Report Immunity to Registry: Yes; Notes: tx cefuroxime x14 d (hx all Doxy); Not Available [facility] 4 06:58:56 Headache 24400611 Active 2008 Headache; snomeddesc ription: Headache; Report Immunity to Registry: Yes; Notes: migraine; Headache; snomeddesc ription: Headache; Report Immunity to Registry: Yes; Notes: migraine; Not Available [facility] 4 06:58:56 Hypertens marj disorder 36140049 Active 2017 Hypertensi ve disorder; snomeddesc ription: Hypertensi ve disorder; Report Immunity to Registry: Yes; Not Available [facility] 4 06:58:56 Arthropat hy 258476048 Active 1998 Arthropath y, unspecifie d, site unspecifie d; snomeddesc ription: Arthritis; Report Immunity to Registry: Yes; Notes: Osteoatrth ris multiple; Not Available [facility] 4 06:58:56 Essential hypertens ion 29354555 Active 2017 Essential (primary) hypertensi on; snomeddesc ription: Hypertensi ve disorder; Report Immunity to Registry: Yes; Not Available [facility] 4 06:58:57 Testoster one level below reference range 780463657 Active 2012 Decreased testostero ne level; snomeddesc ription: Decreased testostero ne level; Report Immunity to Registry: Yes; Notes: hypogoandi sm; Not Available [facility] 4 06:58:57 Insomnia 100043715 Active 1996 Insomnia; Report Immunity to Registry: Yes; Not Available [facility] 4 06:58:57 Anxiety state 712373501 Active 1996 Anxiety state, unspecifie d; snomeddesc ription: Anxiety; Report Immunity to Registry: Yes; Not Available [facility] 4 06:58:57 Onychomyc osis 349332238 Active 2017 Onychomyco sis; snomeddesc ription: Onychomyco sis; Report Immunity to Registry: Yes; Notes: feet digits; Not Available [facility] 4 06:58:57 Chronic hepatitis C 669326274 Active 2006 Chronic hepatitis C without mention [...] neg 2015;2017; 12/2021 F2 ; Not Available [facility] 4 06:58:57 Depressiv e disorder 11206019 Active 1996 Depressive disorder, not elsewhere classified ; snomeddesc ription: Depressive disorder; Report Immunity to Registry: Yes; Depressiv e disorder; snomeddesc ription: Depressive disorder; Report Immunity to Registry: Yes; Not Available [facility] 4 06:58:58 Seasonal allergy 468915419 Active 2012 Seasonal allergy; snomeddesc ription: Seasonal allergy; Report Immunity to Registry: Yes; Notes: hx nasal congestion ; Not Available [facility] 4 06:58:58 Loss of appetite 52794783 Active 2012 Anorexia; snomeddesc ription: Loss of appetite; Report Immunity to Registry: Yes; Loss of appetite; snomeddesc ription: Loss of appetite; Report Immunity to Registry: Yes; Not Available [facility] 4 06:58:58 Seizure 38317680 Active 2000 Seizure; snomeddesc ription: Seizure; Report [...] Report Immunity to Registry: Yes; Not Available [facility] 4 06:58:58 Problem Notes None recorded. Procedures Surgical History None recorded. Imaging Results Imaging Date Name Status LastModified by Organization Details LastModified Time 06/04/2024 US, abdomen, complete completed [email or web address] [place], [address], 06/18/2024 11:12:25 07/15/2024 electrocardiogram completed [email or web address], [address], 07/15/2024 17:12:05 07/17/2024 electrocardiogram completed [email or web address], [place], [address], 07/17/2024 14:15:04 Procedure Notes None recorded. Medical Equipment None Reported. Allergies Allergen ID Allergen Name Allergen Category Reaction Reaction Severity Criticality Documentation Date Start Date Code Code System Note Provider Name and Address Organization Details Recorded Time 714 Reglan medicatio n Not available Not available Not available 10/31/20232012 9230 RxNorm Comme nt: adver se_ev ent_t ype: 73167 8002; ; Not Available [facility] 4 06:50:47 715 Motrin medicatio n Not available Not available Not available 10/31/2023201248 8 RxNorm Comme nt: adver se_ev ent_t ype: 78072 8002; ; Not Available [facility] 4 06:50:47 716 doxycycli ne Not available Not available Not available Not available 10/31/20232017 3640 RxNorm Comme nt: adver se_ev ent_t ype: 47700 8002; ; Not Available [facility] 4 06:50:47 Medications Name Sig [...] Available Liquid Nutrition oral 0 Quantity : 29305; Duration : 30; 0 refill(s ) 09/30 [...] Not Available Not Available Not Available [facility] (15 mcg x [...] Pneumoco ccal conjugat e PCV20, polysacc haride DQF444 conjugat e, adjuvant , PF; Not Available Not Available Not Available Vitals Date Recorded Body height Heart rate Respiratory rate Body temperature Body mass index (BMI) Body weight Systolic blood pressure Diastolic blood pressure Provider Name and Address Organization Details Last Updated DateTime 4 162.56 cm 109 /min 20 /min 97.2 [degF] 21.1 kg/m2 67114.8 6 g 111 mm[Hg] 90 mm[Hg] Jerome STRE[address] MD [facility] 4 12:07:11 Date Recorded Body height Heart rate Respiratory rate Body temperature Body mass index (BMI) Body weight Systolic blood pressure Diastolic blood pressure Provider Name and Address Organization Details Last Updated DateTime 4 162.56 cm 89 /min 16 /min 98 [degF] 20.6 kg/m2 58010.0 8 g 123 mm[Hg] 90 mm[Hg] Jerome [address]RE[address] MD [facility] 4 14:28:38 Date Recorded Body height Provider Name an d Address Organization Details Last Updated DateTime 07/15/[address] MD [facility] 07/15/2024 15:22:29 Date Recorded Body temperature Body mass index (BMI) Body weight Respiratory rate Heart rate Systolic blood pressure Diastolic blood pressure Provider Name and Address Organization Details Last Updated DateTime 4 98.7 [degF] 20.6 kg/m2 63871.0 8 g 20 /min 87 /min 120 mm[Hg] 80 mm[Hg] Cheryl Street MD [address] [place] [address] L[place] jack, [address], [address] MD [facility] 4 15:46:02 Date Recorded Heart rate Body temperature Body weight Systolic blood pressure Diastolic blood pressure Provider Name and Address Organization Details Last Updated DateTime 10/21/2024 98 /min 98.2 [degF] 40482.2 6 g 118 mm[Hg] 97 mm[Hg] Lexis STRE[address] MD [facility] 5 12:04:23 Date Recorded Body height Heart rate Respiratory rate Body mass index (BMI) Body weight Systolic blood pressure Diastolic blood pressure Provider Name and Address Organization Details Last Updated DateTime 5 162.56 cm 81 /min 20 /min 24.9 kg/m2 33386.8 9 g 136 mm[Hg] 89 mm[Hg] Cheryl Street MD [address] [place], [address], [address]NN [address] MD [facility] 5 15:01:34 Social History None recorded. Functional Status None recorded. Mental Status None recorded. Family History Nothing Reported Notes:High cholesterol, Resp onse Property: Yes; , Cancer, other unspecified, Response Property: Yes; , Diabetes, Response Property: Yes; Medical History No medical history recorded. Immunizations Vaccine Type Date Status Note Provider Nam e and Address Organization Details Recorded Time Meningococcal MCV4O 9 completed Not Available [facility] 10/31/2023 06:54:49 zoster live 9 completed Not Available [facility] 10/31/2023 06:54:50 Influenza, split virus, quadrivalent, preservative 9 completed Not Available [facility] 10/31/2023 06:54:50 Influenza, split virus, quadrivalent, preservative 8 completed Not Available [facility] 10/31/2023 06:54:50 Influenza, split virus, quadrivalent, preservative 0 completed Not Available [facility] 10/31/2023 06:54:50 Past Encounters Encounter ID Performer Location Encounter Start Date Encounter Closed Date Diagnosis/Indication Diagnosis SNOMED-CT Code Diagnosis ICD10 Code Diagnosis Note [id number] Krista Belllynette Main Office [address] [place] [address] 05/25/2023 09:48:40 06/27/2023 09:16:16 Human immunodeficiency virus infection 57052804 B20 HIV. Continue Biktarvy 1 tab po [...] [address] MD Main Office [address] [place] [address] 08/24/2023 09:33:00 08/24/2023 10:46:09 Human immunodeficiency virus infection 72735378 B20 HIV. Continue Biktarvy 1 tab po [...] /Tivicay.s afe sex.labs Septemberlan of care reviewed [id number] MD Main Office [address] [place] [address] 11/12/2023 11:34:42 11/16/2023 15:00:47 Human immunodeficiency virus infection 80183345 B20 HIV.Contin ue Biktarvy 1 tab po qd.U=Upt aware of PreP availabili ty.condom use.plan of care reviewed Adult [facility] th examination 297832288 Z00.[address] MD Main Office [address] [place] [address], [place] [address] 11/21/2023 10:59:43 11/23/2023 14:55:[address] MD Main Office [address] [place] [address] 01/14/2024 09:27:39 01/16/2024 13:51:[address] MD Main Office [address] [place] [address] 01/16/2024 10:24:39 01/16/2024 11:50:10 Human immunodeficiency virus infection 50830626 B20 HIV.Contin ue Biktarvy 1 tab po qd.U=Upt aware of PreP availabili ty.condom use.labs todayplan of care reviewed Candidiasis of mouth 797 68276 B37.0 nystatin 5cc po qid x 14 days. swish and spit.call with any side effects.ba cterial/fu ngal swab obtained. 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 [id number] MD Main Office [address] [place] [address] 02/14/2024 12:00:04 02/14/2024 12:24:19 Human immunodeficiency virus infection 04178974 B20 HIV.Contin ue Biktarvy 1 tab po qd.U=Upt aware of PreP availabili ty.DoxyPEP reviewedco ndom use.labs todayplan of care reviewed Methicilli n resistant Staphylococcus aureus infection 610896468 A49.02 swab culture 01/2024 Candidiasi s of the esophagus 03852120 B37.81 sandy glabratafl uconazole 100mg po qd x 14 dayscall with any side effects. Weight loss 80200497 R63 .4 contributi ng factor sandy, MRSA, HIV among othermight benefit from Serostim.w ill review with himG tube [address] MD Main Office [address] [place] [address] 02/21/2024 11:08:05 02/21/2024 12:09:56 Human immunodeficiency virus infection 93038340 B20 HIV.Contin ue Biktarvy 1 tab po qd.complia nce reviewedU= Upt aware of PreP availabili ty.DoxyPEP reviewedco ndom use.labs todayplan of care reviewed Candidiasi s of the esophagus 16318952 B37.81 sandy glabratato complete fluconazol e 100mg po bid x 14 days: (10mg/ml) 10ml by G tube bidcall with any side effects. Methicilli n resistant Staphylococcus aureus infection 042600534 A49.02 swab culture urr ently on Bactrim oral suspension (200mg- 40mg/5ml) since 02/15-20ml q 12 hrs G tube x 10 days Cachexia a ssociated with AIDS 091794397 B20 R64 weight loss. frail. progressin g.contribu ting factor sandy, MRSA, HIV among other. G tubeSerost im 6mg sq qd will be prescribed with the goal of helping w weight gain, increase muscle mass gain, and increase enduranceh e has visiting nurse who could assist with daily injections . [address] MD Main Office [address] [place] [address] 02/25/2024 10:24:53 02/25/2024 11:09:27 Human immunodeficiency virus infection 57139291 B20 HIV.Contin ue Biktarvy 1 tab po qd.complia nce reviewedU= Ucondom use.labs todayplan of care reviewed Candidiasi s of the esophagus 30175954 B37.81 sandy glabratawi ll continue fluconazol e 200 mg po qd x 14 days: (10mg/ml) 10ml by G tube QD;will on next appointmen t for further tx va suppressio n tx.call with any side effects. Cachexia a ssociated with AIDS 243927340 B20 R64 weight loss. frail. progressin g.approved Serostim 6mg sq qd; awaiting delivery to the office. will be prescribed with the goal of helping w weight gain, increase muscle mass gain, and increase enduranceh e has visiting nurse who could assist with daily injections .ensure tidmegace 625 mg qd. Methicilli n resistant Staphylococcus aureus infection 522520265 A49.02 swab culture 01/2024will complete 10 days of Bactrim oral suspension (200mg- 40mg/5ml) since 02/15-20ml q 12 hrs G tube on 02/27/[address] MD Main Office [address] [place] [address] 03/14/2024 10:24:00 03/14/2024 10:29:25 Cachexia associated with AIDS 915281660 R64 B20 gained 2 pounds. probably improved sandy esophagiti s 2nd to inhaled steroids.S Tart Serostim 6mg s/c qd abdomen. first dose administer ed today. Tolerated well; goalis to increase weight, endurance and muscle massHe will have DIAPHRAGM BUILDER and nurse help with daily injections .potential side effects reviewed.t o call with any concernshe will knot picker cloth Megace today, and start it as well(G tube) qd to increase apetitte Human immunodeficiency virus infection 26241274 B20 HIV.Contin ue Biktarvy 1 tab po qd.complia nce reviewed Candidiasi s of the esophagus B37.81 sandy glabratawi ll continue 2 more weeks of fluconazol e 200 mg po qd x 14 days: (10mg/ml) 10ml by G tube QD;might benefit from qw suppressio n tx.call with any side effects. [address] MD Main Office [address] [place] [address] 04/18/2024 09:52:00 04/18/2024 11:19:01 Cachexia associated with AIDS 569713540 R64 B20 124 lbs. gained weightcont inue Serostim 6mg s/c qd abdomen. goalis to increase weight, endurance and muscle masscontin ue Megace G tube qdCNA and nurse helping with compliance and tx.potenti al side effects reviewed.t o call with any concerns Human immunodeficiency virus infection 28381527 B20 HIV.Contin ue Biktarvy 1 tab po qd.complia nce reviewedla bs today Candidiasi s of the esophagus 96303209 B37.81 sandy glabratawi ll continue fluconazol e 200 (10ml) mg G tube qw for suppressio n tx.call with any side effects. Aspiration pneumonia 422 819010 J69.0 get discharge summaryon antibiotic ;eat standing or sitting; [place] [address] MD Main Office [address] [place] [address] 05/20/2024 10:17:53 05/20/2024 12:44:49 Cachexia associated with AIDS 883854874 R64 B20 continue Serostim 6mg s/c qd abdomen. goal is to increase weight, endurance and muscle masscontin ue Megace G tube qd 5cc qdCNA and nurse helping with compliance and tx.potenti al side effects reviewed.t o call with any concerns Human immunodeficiency virus infection 65924448 B20 HIV.Contin ue Biktarvy 1 tab po qd.padmini butt bs today Candidiasi s of the esophagus 84678248 B37.81 sandy glabrataho ld fluconazol e for nowSTART 1 tab po bid x 21 says for esophageal sandy glabrata.c all with any side effects. [address] MD Main Office [address] [place] [address] 06/18/2024 10:10:09 06/18/2024 11:12:33 Cachexia associated with AIDS 371553505 R64 B20 continue Serostim 6mg s/c qd abdomen. goal is to increase weight, endurance and muscle massCNA and nurse helping with compliance and tx.megace on holdpotent ial side effects reviewed.t o call with any concerns Human immunodeficiency virus infection 70668653 B20 HIV.Contin ue Biktarvy 1 tab po qd.padmini butt bs today Inflammato ry disease of liver 334959514 K75.9 Suspect 2nd to concomitan t medication s. ongoingdo not re-start fluconazol e nor megacenega tive infectious and non-infect ious workupto call or ER if jaundice, abd pain, n/v/d marce huertas History of calculus of kidney 615692222 Z87.442 u/s 05/[address] scan 02/2024hydr ation Aspiration pneumonia 422 676155 J69.0 s/p aspiration on CT AngioNPO per instructio n given to him in hospital; nutrition by G tubes/p (ceftriaxo ne,Azithro ,Flagyl while in Hospital;d ischarged on azithro and cefpodoxim e x 3 days which he completed. leg elevationa void sedating meds as much as possible Deep venou s thrombosis of lower extremity [id number] I82.409 left lower extremity doppler showed DVT of gastrocnem ius vein;on tx w w Eliquis bid . Pulmonary embolism [address] Angio was positive for Acute lobar PEs/p heparin; ongoing Eliquis bidmed list reviewed.n o drug use for years. not on maintenanc e tx.denies current ETOH use. [address] MD Main Office [address] [place] [address] 07/15/2024 15:10:10 07/15/2024 15:45:30 Cachexia associated with AIDS [id number] R64 B20 continue Serostim 6mg s/c qd abdomen. goal is to increase weight, endurance and muscle masspotent ial side effects reviewed.t o call with any concerns Human immunodeficiency virus infection 09417239 B20 HIV.Contin ue Biktarvy 1 tab po qd.complia nce reviewedla bs Candidiasi s of the esophagus 69795580 B37.81 on clotrimazo le. swish and spit qd Medication monitoring [id number] MD Main Office [address] [place] [address] 10/21/2024 12:22:54 10/21/2024 16:48:51 Cachexia associated with AIDS 459822511 R64 B20 improvedco ntinue Serostim 6mg s/c qd abdomen. goal is to increase weight, endurance and muscle masspotent ial side effects reviewed.m ay start decreasing dose in 1-2 months if further weight gainon Boost protein shakesto call with any concerns Human immunodeficiency virus infection 51335164 B20 HIV.Contin ue Biktarvy 1 tab po qd.complia nce reviewedla bs Candidiasi s of the esophagus 15985189 7.81 on clotrimazo le. 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 swish and spit qd/BID PRN for suppressio n Insomnia 329748334 G47.0 0 benadryl capsules requested by patient [...] Perry Member ID Guarantor Name 05/20/2024 1 [facility] - DOS ON OR AFTER 2022 - MEDICARE ADVANTAGE [place] (MEDICARE REPLACEMENT/AD VANTAGE - PPO) [facility] [id number] [facility] 06/18/2024 1 [facility] - DOS ON OR AFTER 2022 - [place]IC[place] VANTAGE - PPO) [facility] [id number] [facility] 07/15/2024 1 [facility] - DOS ON OR AFTER 2022 - [place] VANTAGE - PPO) [facility] [id number] [facility] 10/21/2024 1 [facility] - DOS ON OR AFTER 2022 - [place]IC[place] VANTAGE - PPO) [facility] [id number] [facility] 11/25/2024 1 [facility] - DOS ON OR AFTER 2022 - [place]IC[place]/AD VANTAGE - PPO) [facility] [id number] [facility] Notes Date Note Type Note Provider [...] VL nondetetcted01/2024 HIV VL nondetcetd;eGFR=76;AST /ALT wnl;11/2023 PV6=442; HIV VLnondetceted; no infections.01/2022 OZ8=134; HIV VL nondetceted; eGFR>60; ALt/AST wnl; syphilis neg; GC/chlamydia neg Cheryl Street MD [address] [place] [address], [phone], [facility] [address] MD [facility] 05/20/2024 12:17:47 06/18/2024 text/html HIVOn Biktarvy 1 tab po qd.reports daily compliance. denies missing dose.resolved thrush. hx recurrence. fluconazole and voriconazole on hold. Pt reports was hospitalized at [facility] 06/10/24-06/13/24 ( got to ER on [...] VL nondetetcted01/2024 HIV VL nondetcetd;eGFR=76;AST /ALT wnl;11/2023 EL8=474; HIV VLnondetceted; no infections.01/2022 BQ4=529; HIV VL nondetceted; eGFR>60; ALt/AST wnl; syphilis neg; GC/chlamydia neg Cheryl Street MD [address] [place] [address], [phone], [address] MD [facility] 06/18/2024 18:19:56 07/15/2024 text/html HIVOn Biktarvy 1 tab po qd.reports daily compliance. denies missing dose.thrush on/off: recurrence. on clotrimazole daily .stable weight 120lbshe says he is eating more and apetitte has improvedfeels strongergetting serostim dailyno hospitalizations since he was last seenmed list reviewed.On Eliquis and enoxaparin. recent PE/DVT.VL nondetected03/2024 HIV VL nondetctedHIV VL nondetetcted01/2024 HIV VL nondetcetd;eGFR=76;AST /ALT wnl;11/2023 JM3=937; HIV VLnondetceted; no infections. Cheryl Street MD [address] [place] [address], [phone], [address] MD [facility] 07/15/2024 15:47:48 10/21/2024 text/html HIVOn Biktarvy 1 [...] notify site start date and confirm medication. 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 Cheryl Street MD [address] [place] [address], [phone], [facility] [address] MD [facility] 10/21/2024 14:34:28 11/25/2024 text/html HIVOn Biktarvy 1 [...] cyst removal in recent weeks. outpatient/day procedure. 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 07/2025 HIV VL nondetceted; ALt/AST wnl; eGFR>60; DE0=[address] MD [address] [place] [address], [phone], [place] [facility] [address] MD [facility] 11/26/2024 15:09:42
--- OUTSIDE RECORDS SUMMARY | 2024-12-23 11:44 | XMS_ITS | Data Portability ---
Author Organization [employer] [facility] [place] [facility] Address [address] [place] [phone] Care Team Providers Care Program Or Project Administrator Name Role Phone HIM [facility] OTHER [facility] OTHER Assessment No assessment recorded. Plan [...] Not available Not available Not available 07/08/2024 86552 RxNorm Not Available [facility] - production 4 [...] SNOMED-CT Code Diagnosis ICD10 Code Diagnosis Note [id number] ERLINDA HOLLIDAY MD Main - [facility] [address] [place] [phone] 03/06/2024 16:50:44 03/07/2024 17:38:50 Lethargy [id number] R53.83 Evaluation in the field was performed by my regional transportation manager colleague. As noted above, I provided real-time [...] He is afebrile. Per discussion with the regional transportation manager, the patient looked lethargic, walked with an [...] n. The patient was transferre d to [facility] for further evaluation and treatment. His PCP was informed of the transfer to the ED. Primary care, consider__ _ Dispositio n:[facility] Health Concerns Section Related Observation LastModified by Organization Jazzy ls LastModified Time None Recorded Concern Status LastModified by Organization Details LastModified Time None Recorded Advance Directives Directive None Recorded Payers Encounter Date Sequence Insurance Name Policy Number Policy Perry Covered Member ID Perry Member ID Guarantor Name 03/06/2024 1 [facility] - DOS ON OR AFTER 2022 - DUAL ELIGIBLE - [employer] AND [employer] (MEDICARE REPLACEMENT/ADV ANTAGE - HMO) Benjamin Juan David [id number] [facility] Juan David Notes Date Note [...] ................. ................. ................. ................. ................. ................. ..... Resident Care Provider Note From Francisco Ley: Dispatched to above address for headache sore throat. On arrival patient met [facility] at the door. Initially patient denied calling for medical help or having any symptoms. [facility] confirmed patient name and address, after this [...] focus on current situation, poor affect, lethargic. [facility] contacted, spoke with Dr. Holliday, advised of patient complaints and exam findings. [facility] agreed further evaluation in the ER is necessary for this patient. Patient agreed to this. Patients neighbor who assists patient arrived to check on him. She reports this doesn't seem like his normal mentation but cannot be sure. 911 called. [place] [facility] responded. Verbal report given to [place] Resident Care Provider. [place] regional transportation manager took over patient care. [facility] clear. EOR. ................. ................. ................. ................. ................. ................. ................. ................. ..... Disposition: Shahzad HOLLIDAY MD [address] [facility],[address], [place], [phone], [place] 03/06/2024 18:02:19
--- OUTSIDE RECORDS SUMMARY | 2024-12-23 11:44 | XMS_ITS | Data Portability ---
Author Organization [facility] [employer] [facility], Main Office Address [address], [address] [place] [address] Care Team Providers Care Pastry Chef Name Role Phone BRENDAN HOLLINGSWORTH - 2ND [...] and Address Organization Details Recorded Time Asthenia 06333066 Active 2022 MAURO DUFFY NP [address] [facility] [address], [address], [place], [address], [facility] [employer] 3 12:08:07 Moderate protein-calori e malnutrition (weight for age 60-74 percent of standard) 820507030 Active 2022 MAURO DUFFY NP [address] [facility], [address], [place], [address], [facility] [employer] 3 12:08:23 Pneumonia 824040854 Active 2022 MAURO DUFFY NP [address], [address], [place], [address], [facility] [employer] 3 12:08:31 Pleural effusion 81656325 Active 2022 MAURO DUFFY NP [address], [address], [place], [address], [facility] [employer] 3 12:08:59 Hypertensive disorder 46531212 Active 2022 MAURO DUFFY NP [address], [address], [place], [address], [facility] [employer] [facility] 3 12:09:07 Human immunodeficien cy virus infection 89511982 Active 2022 MAURO DUFFY NP [address], [address], [place], [address], [facility] [employer] 3 12:09:12 Viral hepatitis C 37192556 Active 2022 MAURO DUFFY NP [address], [address], [place], [address], [employer] [facility] 3 12:09:28 Mixed anxiety and depressive disorder 524389126 Active 2022 MAURO DUFFY NP [address], [address], [place], [address], [employer] [facility] 3 12:09:40 Asthma 847823883 Active 2022 MAURO DUFFY NP [address], [address], [place], [address], [employer] [facility] 3 12:09:56 Acute dermatitis 36439536 Active 2022 MAURO DUFFY NP [address], [address], [place], [address], [employer] [facility] 3 12:14:27 Migraine 97325959 Active 2022 MAURO DUFFY NP [address], [address], [place], [address], [employer] [facility] 3 12:25:08 Non-traumatic rhabdomyolysis 005022049 Active 2022 Leilani Romeo MD [address], [address], [place], [address], [employer] [facility] 3 10:08:19 Moderate persistent asthma 913852645 Active 2022 Leilani Romeo MD [address], [address], [place], [address], [employer] [facility] 3 10:18:10 Insomnia 807753073 Active 2022 Leilani Romeo MD [address], [address], [place], [address], [employer] [facility] 3 10:19:09 Polysubstance abuse 512588553 Active 2022 Leilani Romeo MD [address], [address], [place], [address], [employer] [facility] 3 10:19:11 Adult failure to thrive syndrome 025502030 Active 2022 Maryjane Glover NP [address], [address], [place], [address], [employer] [facility] 3 13:27:15 Anemia 009974934 Active 2022 Maryjane Glover NP [address], [address], [place], [address], [employer] [facility] 3 13:30:43 Dysphagia 78906671 Active 2022 Leilani Romeo MD [address], [address], [place], [address], [employer] [facility] 3 20:51:38 Gastroesophage al reflux disease without esophagitis 022529596 Active 2022 Leilani Romeo MD [address], [address], [place], [address], [employer] [facility] 3 20:54:24 Chronic pain 90675285 Active 2022 Leilani Romeo MD [address], [address], [place], [address], [employer] [facility] 3 20:55:56 Problem Notes None recorded. Medical Equipment None Reported. Allergies Allergen ID Allergen Name Allergen Category Reaction Reaction Severity Criticality Documentation Date Start Date Code Code System Note Provider Name and Address Organization Details Recorded Time 58579 codeine medicatio n Not available Not available Not available 01/17/2023 2670 RxNorm rash Not Available Not Available Not Available 69875 Levaquin medicatio n Not available Not available Not available 01/17/2023 23140 2 RxNorm rash Not Available Not Available Not Available 44246 Reglan medicatio n Not available Not available Not available 01/17/2023 9230 RxNorm rash Not Available Not Available Not Available 51175 ibuprofen medicatio n Not available Not available Not available 01/17/2023 5640 RxNorm reflu x Not Available Not Available Not Available 57558 Product containin g penicilli n (product) medicatio n Not available Not available Not available 01/17/2023 58074 8001 SNOMED rash Not Available Not Available Not Available 39387 Ultram medicatio n Not available Not available Not available 01/17/2023 50829 6 RxNorm N/V Not Available Not Available Not Available 33561 acetamino phen medicatio n other Not available unabletoasse ss 08/03/2023 161 RxNorm unkno wn Not Available Not Available Not Available 58393 [employer] environme nt,medica tion other Not available unabletoasse 08/03/2023 09658 6 RxNorm unkno wn Not Available Not [...] Details Last Updated DateTime 3 167.64 cm 51999.5 4 g 17.4 kg/m2 86 /min 18 /min 97.6 [degF] 91 % 91 % 115 mm[Hg] 68 mm[Hg] Maryjane Glover NP [address] [facility], [address], [place], [address], [place] [employer] 3 11:08:33 Date Recorded Body height Body weight Heart rate Respiratory rate Body temperature Oxygen saturation Oxygen saturation in Arterial blood by Pulse oximetry Systolic blood pressure Diastolic blood pressure Provider Name and Address Organization Details Last Updated DateTime 3 167.64 cm 15509.5 4 g 72 /min 18 /min 97.1 [degF] 96 % 96 % 115 mm[Hg] 68 mm[Hg] Maryjane Glover NP [address] [facility], [address], [place], [address], [employer] [facility] 3 13:10:32 Date Recorded Body height Body mass index (BMI) Body weight Heart rate Systolic blood pressure Diastolic blood pressure Provider Name and Address Organization Details Last Updated DateTime 3 167.64 cm 17.3 kg/m2 52807.3 8 g 74 /min 133 mm[Hg] 85 mm[Hg] Dilia Gonzalez [address] [facility], [address], [place], [address], [employer] [facility] 3 13:13:45 Date Recorded Body height Body weight Heart rate Respiratory rate Body temperature Oxygen saturation Oxygen saturation in Arterial blood by Pulse oximetry Systolic blood pressure Diastolic blood pressure Provider Name and Address Organization Details Last Updated DateTime 4 167.64 cm 35121.5 4 g 88 /min 18 /min 97.6 [degF] 96 % 96 % 133 mm[Hg] 85 mm[Hg] Maryjane Glover NP [address] [facility], [address], [place], [address], [employer] [facility] 4 19:10:48 Date Recorded Body height Heart rate Respiratory rate Body temperature Oxygen saturation Oxygen saturation in Arterial blood by Pulse oximetry Systolic blood pressure Diastolic blood pressure Provider Name and Address Organization Details Last Updated DateTime 4 167.64 cm 84 /min 18 /min 97.5 [degF] 98 % 98 % 133 mm[Hg] 85 mm[Hg] MAURO DUFFY NP [address] [facility], [address], [place], [address], [employer] [facility] 4 08:57:54 Social History Question Answer Notes LastModified by Organizat ion Details LastModified Time Tobacco Smoking Status Never Smoker MAURO DUFFY NP [address] [facility] [address], [address], [place], [address], [employer] [facility] 01/17/2023 11:35:26 Do You Have An Advance Directive? Yes Information not available 01/17/2023 What Is Your Level Of Alcohol Consumption? None [email or web address] Information not available 01/17/2023 What Is Your Code Status? Full Code [email or web address] Information not available 01/17/2023 Where Do You Live? Apartment With Elevator, Family Near By, Helpful [email or web address] Information not available 01/17/2023 What Was The Date Of Your Most Recent Tobacco Screening? 08/03/2023 Information not available 08/03/2023 Do You Use Any Illicit Or Recreational Drugs? No Noted Past Use Cocaine Information not available 08/03/2023 Has Tobacco Cessation Counseling Been Provided? No [email or web address] Information not available 01/17/2023 Do You Or Have You Ever Used Any Other Forms Of Tobacco Or Nicotine? No [email or web address] Information not available 01/17/2023 Sex: Unknown Functional Status None recorded. Mental Status None recorded. Family History Relationship Description Onset Age of this Age Resolved Age Notes LastModified by Organization Details LastModified Time Mother Malignant tumor of lung [email or web address] Not available 2022 11:34:21 Medical History No medical history recorded. Immunizations Vaccine Type Date Status Note Provider Nam e and Address Organization Details Recorded Time COVID-19, mRNA, LNP-S, bivalent, PF, 50 mcg/0.5 mL or 25mcg/0.25 mL dose [facility]44:56 COVID-19, mRNA, LNP-S, bivalent, PF, 50 mcg/0.5 mL or 25mcg/0.25 mL dose [facility] 13:45:39 Pneumococcal conjugate PCV20, polysaccharide [id number] conjugate, adjuvant, PF 3 completed Asia juarez [facility] 09/11/2023 13:46:16 Influenza, adjuvanted, quadrivalent, PF 3 completed Asia juarez [facility] 09/11/2023 13:46:36 Influenza, adjuvanted, quadrivalent, PF 2 completed Asia juarez [facility] 10/24/2023 13:13:32 Past Encounters Encounter ID Performer Location Encounter Start Date Encounter Closed Date Diagnosis/Indication Diagnosis SNOMED-CT Code Diagnosis ICD10 Code Diagnosis Note [id number] MAURO DUFFY NP [address] [address] 01/17/2023 11:16:19 01/22/2023 12:34:21 Pleural effusion 99586826 J90 and empyema, resp. failures/p L chest tube, intubation Clinically improved.M onitor VS, sats, LS, CP status closely for decompensa tion Pneumonia 872132177 J18. 9 Treated with IV zosyn in hosp.Clini lesly improved.A s above, monitlr VS, sats, LS, CP status closely Asthenia 71880129 R53.1 PT OT eval and tx. Moderate protein-calorie malnutrition (weight for age 60-74 percent of standard) 551525446 E44.0 Started supplement s in hosp.Refer to sas programmer remote here.Seen by in hosp, diet changed to chopped/ad vanced consistenc yOn reg. diet here, doing well. Refer to rehab to try to get bedside FEES testing Hypertensive disorder 38 002297 I10 On norvasc 5 mg dailyPropr anolol ER held in hosp., instructed to resume 03/09, unclear as to why held or if used for something else?Monio r VS, adjust meds prn Human immunodeficiency virus infection 62135084 B20 Continue biktarvy Mixed anxi ety and depressive disorder 743566702 F41.8 Continue home meds:clona zepam 1 mg daily? risperdal 2 mg HSremeron 60 mg HSMonitor mood, behaviors for changePsyc h eval prn Asthma 151124073 J45.90 9 Continue flovent bidMonitor resp. status for change Acute dermatitis 5493267 6 L30.9 bilat. groin, fungalstar t nystatin cream or powder bid x 14 days or until clearmonit or Migraine 19499282 G43.90 9 Continue home meds:Celeb monica 200 mg bidgabapen tin 600 mg tidibuprof en 800 mg q8 hr prnultram 50 daily prn? clonazepam 1 mg daily? risperdal 2 mg HS? propranolo l Er 120 mg daily - held in hosp - cont. to hold here, resume date of 03/09 [id number] Kenia Michaels MD [address] [address] 01/19/2023 07:22:18 01/22/2023 15:16:30 Pneumonia 810196636 J15.8 antibiotic s completeds /p empyema, respirator y failure, intubation will monitor Asthenia 20798852 R53.1 PT/OTwill monitor Human immunodeficiency virus infection 62124328 B20 Biktarvy 50-200-25 dailyfu I.D. Essential hypertension 39158153 I10 amlodipine 5 mg dailywill monitor Mixed anxi ety and depressive disorder 753847483 F41.8 gabapentin 600 mg tidmirtaza pine 60 mg at hsrisperid one 2 mg at hsclonazep am 1 mg dailywill monitor Gastroesop hageal reflux disease without esophagitis 364669839 K21.9 pantoprazo le 40 mg dailywill monitor Chronic pain 72714762 G8 9.29 gabapentin 600 mg tidhospita l discharge notes include:ce lecoxib 200 m bid, ibuprofen 800 mg q8h prn, tramadol 50 mg daily prnwill monitor and consider if needed [id number] Panchito Morales NP [facility] [address] [place] [address] 06/30/2023 08:20:37 07/03/2023 11:44:52 Human immunodeficiency virus infection 78354016 B20 06/30/23mo nitorID consult as indicated- biktarvy (bictegrav ir, emtricitab ine & tenofovir alafenamid e) 50-200-25m g QD Hypertensive disorder 38 782912 I10 06/30/23mo nitorcards FU PRNavoid beta barb with HX of cocaine abuse-amlo dipine 5mg QD Mixed anxi ety and depressive disorder 006211743 F41.8 06/30/23mo nitorpsych consult PRN-risper idone 3mg QHS Viral hepatitis C 133564 07 B19.20 10/21/23mo nitor [id number] Leilani Levheim, MD [facility] on [address] [place] [address] 07/02/2023 17:00:01 07/12/2023 14:37:46 Human immunodeficiency virus infection 12101103 B20 Non-detect able on last checkConti nue biktarvy (bictegrav ir, emtricitab ine & tenofovir alafenamid e) 50-200-25m g QDF/U with ID as planned. Hypertensive disorder 38 074957 I10 BP good since here.Sam nue amlodipine 5 mg qdMonitor BP and labs. Mixed anxi ety and depressive disorder 313247524 F41.8 Mood stable.Con tinue risperidon e 3 mg qhs, mirtazapin e 30 mg qhs, and clonazepam 1 mg qd.Monitor mood.Psych consult prn. Viral hepatitis C 085051 07 B18.2 Unclear hx.LFTs WNL.F/U as outpt. Acute chest pain 5842146 01 R07.89 Per cardio not ACS.Monito r sxs.F/U with cardio prn. Non-trauma tic rhabdomyolysis 495204570 M62.82 CPK trended down inpt.No need to monitor further. Moderate p ersistent asthma 177507806 J45.40 No SOB or hypoxia, but with junky cough as above.Cont inue Advair 230/21 two puffs BID, Flovent 2 puffs BID, and albuterol/ budesonide 2 puffs q 6 hrs prn.Monito r resp status. Polysubstance abuse 4452 91182 F19.10 Most often cocaine, but sometimes other things.Con tinue SUDs counseling while here and encourage abstinence and outpt f/u. Cough 53864576 R05.8 Sounds junky, but pt says it feels like tickle in throat. Maybe post nasal drip.Lungs clear, but still could be early PNA.Will start Robitussin DM 10 ml q 4 hrs prn and get CXR tomorrow.M onitor resp status. Insomnia 507098382 G47.0 9 Will try melatonin 5 mg qhs.Monito r sleep patterns. [id number] MIGUEL BROWN [facility] on [address] [place] [address] 07/05/2023 08:16:20 07/12/2023 16:01:31 Mixed anxiety and depressive disorder 201435580 F41.8 07/05: his mood is stablecont inue:clona zepam 1 mg dailyrispe ridone 3 mg daily at bedtime.Mi rtazapine 30 mg at bedtime daily.tu tonin 5 mg at bedtime daily Cough 41014309 R05.8 07/05: non productive upper airway congested coughThere is no SOB. LS are clearCXR completed; no active pulmonary infiltrate s or pleural effusions seen.Erna ussin DM 10 ml q 4 hrs prn- will scheduled for a few days, does not look like he requested prn.Monito r resp status. Polysubstance abuse 4452 68851 F19.10 Most often cocaine, but sometimes other things.Con tinue SUDs counseling while here and encourage abstinence and outpt f/u. [id number] MIGUEL BROWN [facility] on [address] [place] [address] 07/06/2023 09:35:29 07/12/2023 16:16:45 Mixed anxiety and depressive disorder 917855968 F41.8 continue:c lonazepam 1 mg dailyrispe ridone 3 mg daily at bedtime.Mi rtazapine 30 mg at bedtime daily.tu tonin 5 mg at bedtime dailyfollo w up with outpatient PCP. Cough 89628978 R05.8 CXR on 07/03/23 negative for any acute process.Ro bitussin DM 10 ml q 4 hrs prnfollow up with outpatient PCP. Acute dermatitis 3675886 6 L30.9 continueny statin cream BID as needed until clearedfol low up with outpatient PCP. Asthma 477881362 J45.90 9 Advair 230/21 two puffs BID,Floven t 2 puffs BID, andalbuter ol/budeson kentrell 2 puffs q 6 hrs prn.follow up with outpatient PCP. Human immunodeficiency virus infection 40017621 B20 Continue biktarvy (bictegrav ir, emtricitab ine & tenofovir alafenamid e) 50-200-25m g QD Hypertensive disorder 38 282261 I10 Continue amlodipine 5 mg qdfollow up outpatient Insomnia 627479842 G47.0 9 melatonin 5 mg at bedtime Migraine 97974247 G43.90 9 Continue home meds: Celebrex 200 mg bid gabapentin 600 mg tid ibuprofen 800 mg q8 hr prn ultram 50 daily prn clonazepam 1 mg daily risperdal 3 mg HS follow up with PCP Viral hepatitis C 374771 B18.2 follow labs outpatient follow up with outpatient pcp. [id number] Maryjane Glover NP [facility] [address] [place] [address] 08/03/2023 12:58:35 08/08/2023 10:07:33 Human immunodeficiency virus infection 10035965 B20 ID consult prnbiktarv y (bictegrav ir, emtricitab ine & tenofovir alafenamid e) 50-200-25m g QD Asthenia 46735530 R53.1 PT/OT treat and evalwill monitor Essential hypertension 94047137 I10 amlodipine 5 mg dailywill monitor Mixed anxi ety and depressive disorder 193455374 F41.8 gabapentin 600 mg tidmirtaza pine 60 mg at hsrisperid one 3 mg at hsclonazep am 1 mg dailypsych prnwill monitor Gastroesop hageal reflux disease without esophagitis 033420905 K21.9 With recent workup in hosp and PEG placed.use G tube for feedings/m edswill monitor Chronic pain 69707428 G8 9.29 gabapentin 600 mg tidtramado l 50 mg prn dailymulti ple allergies notedwill monitor and consider if needed Polysubstance abuse 4452 04032 F19.10 Most often cocaine per hx with overdoses notedConti nue counseling while here and encourage abstinence and outpt f/u. Asthma 551945891 J45.90 9 advair 2 puff bidalbuter ol 2 puffs q 6 hours prn wheezingMo nitor resp. status for change Viral hepatitis C 148976 B18.2 fu with labscurren tly stable liver enzymesmon itor Moderate protein-calorie malnutrition (weight for age 60-74 percent of standard) 386749333 E44.0 now on PEG tube with feedings at 60cc/hrRef er to sas programmer remote here.Seen by in hosp, unclear why he has dysphagia and difficulty eating with workup including EGD at [facility] eval and treat here to see if he can take po intakemoni tor Anemia 449821554 D64.9 ferrous gluconate 324 dailymonit or cbc weekly Adult fail ure to thrive syndrome 958117795 R62.7 g tube feedings and meds through g tube at 60cc/hrfai lure to thrive with supplement s in [facility] to eval and treat, consider reintroduc ing foods when ableweight s weeklymoni tor Insomnia 169117179 G47.0 9 benedryl 25 mg qhsmonitor [id number] Leilani Romeo MD [address] [address] 08/06/2023 16:28:34 08/08/2023 11:16:44 Adult failure to thrive syndrome 918756889 R62.7 With marked wt. loss over past few months.Mehrdad barr Jevity 1.0 or 1.2 tanya/ml at 60 ml/hr.Stil l unable to swallow, unknown reason.Mehrdad barr COMMUNITY SERVICE AIDE interventi ons to hopefully enable him to eat again.Cait tor wts and labs. Moderate protein-calorie malnutrition (weight for age 60-74 percent of standard) 458589246 E44.0 As above. Human immunodeficiency virus infection 15815387 B20 Last labs show zero viral load.Sam nue Biktarvy (bictegrav ir, emtricitab ine & tenofovir alafenamid e) 50-200-25m g QDF/U with ID as planned. Asthenia 65358911 R53.1 Very deconditio armen.Needs PT/OT for strengthen ing, balance, gait training, safety and function.C ontinue fall precaution s.Monitor for safety. Essential hypertension 42799588 I10 BP running low since here, should improve as nutritiona l status improves.C ontinue amlodipine 5 mg qdMonitor BP and labs. Gastroesop hageal reflux disease without esophagitis 985998081 K21.9 On no meds.I wonder if starting a PPI may help with throat pain?Monit or Chronic pain 72308293 G8 9.29 No c/o tonight.Co ntinue gabapentin 600 mg TID and tramadol 50 mg qd prnMonitor sxs. Asthma 163165294 J45.30 Asthma meds transcribe d incorrectl y on admission here.Was not put on Advair, but rather only albuterol/ budesonide prn.Will restart Advair 230/21 mcg two puffs BIDMonitor resp. status Anemia 519227097 D64.89 Not currently anemic.Con tinue ferrous gluconate 324 mg qdMonitor labs Mixed anxi ety and depressive disorder 782092030 F41.8 Mood stable.Con tinue risperidon e 3 mg qhs, mirtazapin e 60 mg qhs, and clonazepam 1 mg qd.Monitor mood.Psych consult prn. Viral hepatitis C 264957 07 B18.2 Unclear hx.LFTs WNL.F/U as outpt. Polysubstance abuse 4452 67659 F19.10 Most often cocaine, but sometimes other things.Con momo counseling and encourage abstinence and outpt f/u. Dysphagia 63700433 R13.1 9 Unknown etiology.C ontinue G-tube feeding as above.Cons ider ENT consult. [id number] Maryjane Glover, LADAN [address] [address] 08/16/2023 12:26:03 08/22/2023 11:29:11 Adult failure to thrive syndrome 821713698 R62.7 With marked wt. loss over past few months.Con tinueJevit y 1.5 tanya/ml at 60 ml/hr. sas programmer remote following and will adjust as neededStil l unable to swallow, unknown reason.Con momo COMMUNITY SERVICE AIDE interventi ons to hopefully enable him to eat again.Cait tor wts and labs. Dysphagia 37039293 R13.1 9 Unknown etiology.C ontinue G-tube feeding as above.Cons ider ENT consult. Moderate protein-calorie malnutrition (weight for age 60-74 percent of standard) 901108666 E44.0 As above. Human immunodeficiency virus infection 04759834 B20 Last labs show zero viral load.Sam nueBiktarv y (bictegrav ir, emtricitab ine & tenofovir alafenamid e) 50-200-25m g QDF/U with ID as planned. Asthenia 00388091 R53.1 Very deconditio armen.Needs PT/OT for strengthen ing, balance, gait training, safety and function.C ontinue fall precaution s.Monitor for safety. Essential hypertension 21003527 I10 BP running low since here, should improve as nutritiona l status improves.a mlodipine 5 mg qdMonitor BP and labs. Gastroesop hageal reflux disease without esophagitis 646066528 K21.9 no meds.Monit or Chronic pain 54470966 G8 9.29 has mild headache todayConti nuegabapen tin 600 mg TIDtramado l 50 mg qd prnMonitor sxs. Asthma 003947537 J45.30 Asthma meds transcribe d incorrectl y on admission here.albut maddi/budes onide prn.Advair 230/21 mcg two puffs BIDMonitor resp. status Anemia 792579865 D64.89 Not currently anemic.juan carlos scales order cbc and bmp weekly [id number] gluconate 324 mg qdMonitor labs Mixed anxi ety and depressive disorder 007623668 F41.8 Mood stable.ris peridone 3 mg qhsmirtaza pine 60 mg qhs,clonaz epam 1 mg qd.Monitor mood.Psych consult prn. Viral hepatitis C 008539 07 B18.2 Unclear hx.LFTs WNL.F/U as outpt. Polysubstance abuse 4452 27977 F19.10 Most often cocaine, but sometimes other things.Mehrdad barr counseling and encourage abstinence and outpt f/u. [id number] Maryjane Glover NP [address] [address] 08/22/2023 11:06:38 08/28/2023 14:23:57 Adult failure to thrive syndrome 976938654 R62.7 With marked wt. loss over past few months.Con tinueJevit y 1.2 tanya/ml at 67ml/hr. sas programmer remote following and will adjust as neededStil l unable to swallow, unknown reason.Mehrdad barr COMMUNITY SERVICE AIDE interventi ons to hopefully enable him to eat again.Cait tor wts and labs.08/22 sas programmer remote to assess if bolus feedings can be attempted for homefamily /pt needs g tube care/teach ing for ? dc homemonito r Asthenia 06287809 R53.1 Very deconditio armen, improving every week with therapyNee ds PT/OT for strengthen ing, balance, gait training, safety and function.C ontinue fall precaution s.Monitor for safety. Dysphagia 12179765 R13.1 9 Unknown etiology.C ontinue G-tube feeding as above.Cons ider ENT consult. Anemia 554838942 D64.89 Not currently anemic.juan carlos l order cbc and bmp weekly [id number] gluconate 324 mg qdMonitor labs Moderate protein-calorie malnutrition (weight for age 60-74 percent of standard) 750135217 E44.0 As above. Human immunodeficiency virus infection 13521377 B20 ContinueBi ktarvy (bictegrav ir, emtricitab ine & tenofovir alafenamid e) 50-200-25m g QDF/U with ID as planned. Essential hypertension 01415123 I10 BP now improving as nutritiona l status improves.1 10s-130s /60scontam lodipine 5 mg qdMonitor BP and labs. Gastroesop hageal reflux disease without esophagitis 670632912 K21.9 no meds.Monit or Chronic pain 88401758 G8 9.29 headache resolvedCo ntinuegaba pentin 600 mg TID, no pain todaytrama dol 50 mg qd prnMonitor sxs. Asthma 867074337 J45.30 Asthma meds transcribe d incorrectl y on admission here.albut maddi/budes onide prn.Advair 230/21 mcg two puffs BIDMonitor resp. status Mixed anxi ety and depressive disorder 520781187 F41.8 Mood stable and ding wellrisper idone 3 mg qhsmirtaza pine 60 mg qhs,clonaz epam 1 mg qd.Monitor mood.Psych consult prn. [id number] Maryjane Glover NP [address] [address] 08/29/2023 08:14:48 08/30/2023 19:42:34 Adult failure to thrive syndrome [id number] R62.7 With marked wt. loss over past few months.Con tinueJevit y 1.2 tanya/ml at 67ml/hr. sas programmer remote following and will adjust as neededStil l unable to swallow, unknown reason.per speech eval: no eating or drinkingMo nitor wts and labs.08/22 sas programmer remote to assess if bolus feedings can be attempted for homefamily /pt needs g tube care/teach ing for ? dc homemonito r1/ awaiting sas programmer remote to calculate gtube feedings and start Asthenia [id number] R53.1 Very deconditio armen, improving every week with therapyNee ds PT/OT for strengthen ing, balance, gait training, safety and function.C ontinue fall precaution s.Monitor for safety. Dysphagia 43557510 R13.1 9 Unknown etiology.C ontinue G-tube feeding as above.Cons ider ENT consult. Anemia 471806737 D64.89 Not currently anemic.juan carlos l order cbc and bmp prn, labs stableferr ous gluconate 324 mg qdMonitor labs Moderate protein-calorie malnutrition (weight for age 60-74 percent of standard) 328799722 E44.0 As above. Human immunodeficiency virus infection 30450394 B20 ContinueBi ktarvy (bictegrav ir, emtricitab ine & tenofovir alafenamid e) 50-200-25m g QDF/U with ID as planned. Essential hypertension 52562593 I10 BP now improving as nutritiona l status improves.1 conta mlodipine 5 mg qdMonitor BP and labs. Gastroesop hageal reflux disease without esophagitis 203433714 K21.9 no meds.Monit or Chronic pain 75759798 G8 9.29 headache resolvedCo ntinuegaba pentin 600 mg TID, no pain todaytrama dol 50 mg qd prnMonitor sxs. Asthma 810329363 J45.30 Asthma meds transcribe d incorrectl y on admission here.albut maddi/budes onide prn.Advair 230/21 mcg two puffs BIDMonitor resp. status Mixed anxi ety and depressive disorder 026643436 F41.8 Mood stable and ding wellrisper idone 3 mg qhsmirtaza pine 60 mg qhs,clonaz epam 1 mg qd.Monitor mood.Psych consult prn. Neck pain 66921867 M54.2 incidental neck pain, states slept on it wrongnsg giving tyl, tramadol and gabapentin reposition neckmonito r for relief [id number] Dilia SchwarzGino Hutchinson [address] [place] [address] 09/07/2023 05:15:43 09/13/2023 10:39:11 Adult failure to thrive syndrome 695355808 R62.7 With marked wt. loss over past few months.Con tinueJevit y 1.2 tanya/ml at 67ml/hr. sas programmer remote following and will adjust as neededStil l unable to swallow, unknown reason.Mehrdad barr COMMUNITY SERVICE AIDE interventi ons to hopefully enable him to eat again.Cait tor wts and labs.recei deborah education on gt feeds, SW working on VNA set up for [facility] GT site daily with NS and dry. apply 2x2 to sitemonito r Asthenia 34268754 R53.1 Very deconditio armen, improving every week with therapyNee ds PT/OT for strengthen ing, balance, gait training, safety and function.C ontinue fall precaution s.Monitor for safety. Dysphagia 22678918 R13.1 9 Unknown etiology.C ontinue G-tube feeding as above.Cons ider ENT consult. Anemia 093807029 D64.89 Not currently anemic.juan carlos l order cbc and bmp weekly a4xfyvwyb gluconate 324 mg qdMonitor labs Moderate protein-calorie malnutrition (weight for age 60-74 percent of standard) 798725471 E44.0 As above. Human immunodeficiency virus infection 17147241 B20 ContinueBi ktarvy (bictegrav ir, emtricitab ine & tenofovir alafenamid e) 50-200-25m g QDF/U with ID as planned. Essential hypertension 53476547 I10 BP now improving as nutritiona l status improves.1 10s-130s /60scontam lodipine 5 mg qdMonitor BP and labs. Gastroesop hageal reflux disease without esophagitis 216808874 K21.9 no meds.Monit or Chronic pain 01429772 G8 9.29 headache resolvedCo ntinuegaba pentin 600 mg TID, no pain todaytrama dol 50 mg qd prnMonitor sxs. Asthma 325496998 J45.30 Asthma meds transcribe d incorrectl y on admission here.albut maddi/budes onide prn.Advair 230/21 mcg two puffs BIDMonitor resp. status Mixed anxi ety and depressive disorder 077245798 F41.8 Mood stable and ding wellrisper idone 3 mg qhsmirtaza pine 60 mg qhs,clonaz epam 1 mg qd.Monitor mood.Psych consult prn. [id number] Maryjane Glover, [facility] [address] [place] [address] 09/12/2023 18:08:08 09/14/2023 11:17:17 Adult failure to thrive syndrome 623999386 R62.7 With marked wt. loss over past [...] dry. apply 2x2 to sitemonito r Asthenia 73168759 R53.1 Very deconditio armen, improving every week with therapyNee ds PT/OT for strengthen ing, balance, gait training, safety and function.C ontinue fall precaution s.Monitor for safety. Dysphagia 93379978 R13.1 9 Unknown etiology.C ontinue G-tube bolus feeding as above.FEES test on Sundayne s cxr to rule out pna from foods and drinks in room despite recommenda tionConsid er ENT consult. Moderate protein-calorie malnutrition (weight for age 60-74 percent of standard) 141410435 E44.0 As above. Human immunodeficiency virus infection 61526410 B20 ContinueBi ktarvy (bictegrav ir, emtricitab ine & tenofovir alafenamid e) 50-200-25m g QDF/U with ID as planned. Essential hypertension 42279469 I10 BP now improving as nutritiona l status improves.1 10s-130s /60scontam lodipine 5 mg qdMonitor BP and labs. Asthma 665560086 J45.30 no wheezing noted on exam, stablealbu terol/bude sonide prn.Advair 230/21 mcg two puffs BIDMonitor resp. status Mixed anxi ety and depressive disorder 009544295 F41.8 Mood stable and ding wellrisper idone 3 mg qhsmirtaza pine 60 mg qhs,clonaz epam 1 mg qd.Monitor mood.Psych consult prn. [id number] MAURO DUFFY NP [facility] [place] [address] 09/18/2023 08:57:08 09/25/2023 10:49:09 Adult failure to thrive syndrome 700916420 R62.7 With marked wt. loss over past few months due to difficulty swallowing .G tube placed 07/30/23 at [facility].Contin ue osmolite 1.2 tanya/ml 410 cc qid bolus tube feedings upon d/c home.Seen by COMMUNITY SERVICE AIDE - now on puree diet with thin liquids - may continue at homeContin ue to monitor weights and intake at home Asthenia 97116979 R53.1 Improved, meeting rehab goals for d/c home today with support of services.C ontinue fall precaution s.Monitor for safety as outpt. Dysphagia 19596205 R13.1 9 Unknown etiology.S ee [facility] w on pureed diet, thin liquidsMon itor intake, s/s aspiration as outpt. Moderate protein-calorie malnutrition (weight for age 60-74 percent of standard) 551140345 E44.0 As above. Human immunodeficiency virus infection 45574655 B20 ContinueBi ktarvy (bictegrav ir, emtricitab ine & tenofovir alafenamid e) 50-200-25m g QDF/U with ID as planned. Essential hypertension 71742790 I10 continue amlodipine 5 mg qdMonitor BP as outpt. Asthma 851001890 J45.30 no wheezing noted on exam, stablecont inue Advair 230/21 mcg two puffs BID and albuterol/ budesonide prn.Monito r resp. status as outpt. Mixed anxi ety and depressive disorder 174858441 F41.8 Mood stable and doing wellContin ue home medsrisper idone 3 mg qhsmirtaza pine 60 mg qhsclonaze david 1 mg qdMonitor mood, behaviors as outpt. Chronic pain 95041865 G8 9.29 continue gabapentin 600 mg tid, ultram 50 mg qd prnmonitor asoutpt. Anemia 699335371 D64.89 remains on daily FeMonitor CBC,s/s active bleeding Health Concerns Section Related Observation LastModified by Organization Detai ls LastModified Time None Recorded Concern Status LastModified by Organization Details LastModified Time None Recorded Advance Directives Directive Y: Payers Encounter Date Sequence Insurance Name Policy Number Policy Perry Covered Member ID Perry Member ID Guarantor Name 08/22/2023 1 [facility] - DOS ON OR AFTER 2022 - MEDICARE ADVANTAGE [place] (MEDICARE RE[place]ACEMENT/ADV ANTAGE - PPO) [employer] [facility] [id number] [facility] 08/29/2023 1 [facility] [employer] - DOS ON OR AFTER 2022 - MEDICARE [place]/ADV ANTAGE - PPO) [employer] [id number] [facility] 09/07/2023 1 [employer] - DOS ON OR AFTER 2022 - [place]IC[place]/ADV ANTAGE - PPO) [employer] [id number] [facility] 09/12/2023 1 [employer] - DOS ON OR AFTER 2022 - [place]/ADV ANTAGE - PPO) [facility] [id number] [facility] 09/18/2023 1 [employer] - DOS ON OR AFTER 2022 - [place]IC[place] RE[place]/ADV ANTAGE - PPO) [employer] [facility] [id number] [facility] Notes Date Note Type Note Provider [...] other concerns. Note: He was admitted to [facility] for similar concerns earlier this month [...] code signed 01/17/23 Maryjane Glover NP [address], [address], [place], [address], [facility] [employer] 08/22/2023 11:24:08 08/29/2023 text/html Patient seen for an 30 routine rounding visit. Past medical history significant for HIV, history of hep C, depression, asthma, history lung abscess 2020, fall, several overdoses noted in hx. dysphagia seen for difficulty swallowing ultimately diagnosed with failure to thrive and PEG tube placed. Benjamin was admitted to [facility] for difficulty swallowing and underwent EGD [...] from hospital to rehab. While here at [facility]: Pt is 107.6 lbs and this [...] disconnect his feedings without difficulty here. Awaiting sas programmer remote to calculate bolus feedings and start them [...] code signed 01/17/23 Maryjane Glover NP [address], [address], [place], [address], [facility] [employer] 08/29/2023 13:39:07 09/07/2023 text/html Patient seen for [...] other concerns. Note: He was admitted to [facility] for similar concerns earlier this month [...] code signed 01/17/23 Dilia Michelle lloyd [address], [address], [place], [address], [employer] 09/07/2023 13:21:25 09/12/2023 text/html Patient seen for [...] code signed 01/17/23 Maryjane Glover NP [address], [address], [place], [address], [employer] 09/12/2023 19:33:00 09/18/2023 text/html Benjamin is seen t heidy for discharge. He is going home today with support of services. He is a 58 yo man admitted to [facility] 08/02/23 from [facility] for continued care and rehab after a hospitalization related to malnutrition and FTT.He presented to [facility] 07/27 reporting throat pain and the inability to swallow.Swallowing issues problematic prior to this presentation, had EGD with Dr. Dodson 07/17, results c/w mild candidiasis normal stomach and duodenum. He was also seen by COMMUNITY SERVICE AIDE, diet changed to NND1 and nectar thick liquid. Due to ongoing swallowing issues at home, he returned to [facility] ER.A g-tube was placed on 07/30, cause of dysphagia unclear. Kept NPO, and sent here for rehab. While here, Benjamin has done well.Worked with PT/OT, meeting goals for d/c home.Also worked with COMMUNITY SERVICE AIDE and sas programmer remote - now tolerating puree diet with thin [...] also, possibly inadvertently). MAURO DUFFY NP [address], [address], [place], [address], [facility] 09/18/2023 09:47:21
--- OUTSIDE RECORDS SUMMARY | 2024-12-23 11:45 | XMS_ITS | Clinical Summary ---
Author Organization [facility] Address [address] [place] [address] Care Team Providers Care Triage Nurse Name Role Phone Zora Arce PA-C Primary Care Provider [phone] Source Comments PLEASE NOTE, if this patient [...] EC tabletIndications:H IV (human immunodeficiency virus infection) ([facility]) Take 1 Tab by mouth once [...] NUTRITION) liquidIndications:H IV (human immunodeficiency virus infection) ([facility]) Take 1 Can by mouth 3 [...] 0.65 % nasal sprayIndications:As thma, intermittent, uncomplicated ([facility]) Place 1 [place] into the nostril(s) as needed for congestion. 60 mL 6 016 Active omeprazole (PRILOSEC) [address] capsuleIndications: Dyspepsia Take 1 Cap by mouth every morning before breakfast. Do not crush or chew. 30 Cap 3 016 Active albuterol sulfate hfa (PROAIR HFA) 90 mcg/actuation inhalerIndications: Asthma, intermittent, uncomplicated ([facility]) Inhale 2 Puffs into the lungs every 4 (four) hours as needed for shortness of breath. Int asthma 18 g 6 016 Active Active Problems Problem Noted Date Diagnosed Date Asthma, mild intermittent ([facility]) 05/06/2015 Fibromyalgia 01/27/2015 Generalized anxiety disorder 01/27/2015 Seizure disorder ([facility]) 01/27/2015 Major depressive disorder, r ecurrent, severe without psychotic features ([facility]) 01/27/2015 Overview (01/27/2015): Has therapist at [facility] HIV (human immunodeficiency virus infection) ( [facility]) 01/27/2015 Chronic back pain 01/27/2015 Hepatitis [...] Fall Relation to Subscriber:Self Name:Benjamin Fall Payer ID:[id number] Group ID:Not on file Type:Medicaid Address: [address] Care Teams Triage Nurse Relationship Specialty Start Date End Date Zora Arce PA-C [address] [place] [address] PCP - General 11/05/18
== END 2024-12-23 10:24 | disposition home or self-care (01) ==
LOC: HO.ENCR 10:04
PROVIDERS: PCP Student in an Organized Health Care Education/Training Program; Visit Provider Student in an Organized Health Care Education/Training Program
DX: M81.8 Other osteoporosis without current pathological fracture (principal); E29.1 Testicular hypofunction; Z82.62 Family history of osteoporosis

== ENCOUNTER → 2024-12-23 10:04 | Outpatient (BNVA) | payer OTHER, SELFPAY | PROVIDERS: PCP Student in an Organized Health Care Education/Training Program; Visit Provider Student in an Organized Health Care Education/Training Program | DX: M81.0 Age-related osteoporosis without current pathological fracture (principal) | CPT/HCPCS: 96372; J3111 ==

== ENCOUNTER 2025-01-09 09:22 | Outpatient (AMB) | payer OTHER, SELFPAY ==
--- NOTE | 2025-01-09 09:23 | MHC.OFFVIS ---
Vital Signs 01/09/25 09:24 Height 5 ft 6 in Weight 155 lb 6.814 oz BMI 25.1 BP 98/70 Blood Pressure Location Lt brachial Position Sitting Pulse 92 Pulse Source Pulse Oximeter Pulse Oximetry (%) 97 Oxygen Delivery Method Room Air Intake Visit Reasons: Adrenal hyperplasia Intake Note: Patient present today for Adrenal hyperplasia office visit. Toll Relief Operator Required: No Accompanied by: MAINTENANCE MECHANIC TELEPHONE Allergies Seasonal Allergies Allergy (Intermediate, Verified 01/09/25 09:27) Eye Drainage codeine [From Tylenol-Codeine #3] Allergy (Mild, Verified 01/09/25 09:27) Rash levofloxacin [From Levaquin] Allergy (Mild, Verified 01/09/25 09:27) Rash metoclopramide [From Reglan] Allergy (Mild, Verified 01/09/25 09:27) Rash acetaminophen [Tylenol-Codeine #3] Allergy (Unknown, Verified 01/09/25 09:27) Rash Penicillins [PENICILLINS] Allergy (Unknown, Verified 01/09/25 09:27) Rash ibuprofen [From Motrin] Adverse Reaction (Unknown, Verified 01/09/25 09:27) Reflux HPI Comments Details: 59-year-old male with past medical history significant for HIV, hepatitis-C, seizure disorder, hypertension, prediabetes, anxiety/depression, asthma, history of left lung empyema status post drainage, chronic respiratory failure and recurrent aspiration pneumonia, parkinsonism, cardiomyopathy coming in today for follow up for adrenal hyperplasia and osteoporosis. Here today with MAINTENANCE MECHANIC TELEPHONE. Osteoporosis DEXA scan February 2023 baseline showed osteoporosis with a lumbar spine T-score -4.5 with L2 as low as -5.1 , -2.1 in total femur and -2.7 left femoral neck Osteoporosis new pt evaluation osteoporosis: Diagnosed in February 2023 Fracture History: None Height loss: patient says he used to be 5 ' 6 before Back pain: reports B/L lower back pain , intermittent , started 2 weeks ago Pharmacotherapeutic hx: None Drug holiday None Family history: mother had osteoporosis , no parent fractured hip Secondary risk factors: Steroid use: has required intermittent steroids for pneumonia Hyperthyroidism: Neg Seizure medication use: has history of seizure medication use Chemo or Radiation use: Neg Heparin Use: Neg History of eating disorder: yes on PEG tube due to dysphagia for 1 year [facility] immobilization: Negative History of kidney stones or disease:Yes Ct abd 03/03 Kidneys and Ureters: Multiple bilateral nonobstructive renal calculi measuring up to 3 mm. No hydronephrosis. No perinephric fat stranding. has had 2 hospitalizations PI Use: Yes Chronic inflammatory lung disease: Yes Chronic inflammatory bowel disease: Negative Daily calcium intake: milk three cups a day, no cheese or yogurt , through PEG tube 600 mg BID calcium Vitamin D intake: through PEG tube 800 units BID vitamin D Exercise:not active Smoking history:never smoker Dental: Has regular dental cleaning, no issues has appointment in Oct 2024 Labs from 10/01/2024, showed normal kidney function with a EGFR greater than 60, calcium of 9.7 with albumin of 4.1, corrected calcium would be 9.6, ionized calcium 5.4, normal phosphorus 3.6, normal PTH, of 36.3, vitamin-D level of 44. Labs from August 2024 showed CTX elevated at 552, bone specific alkaline phosphatase low at 8.5. All of this points towards hi bone resorption. Normal 24 hour urine calcium levels of 219 from August 2024. Interval history 10/28/2024: Started on Evenity monthly injections, received 3 injections so far, no problems No fractures Daily calcium intake: milk three cups a day, no cheese or yogurt , through PEG tube 600 mg BID calcium Vitamin D intake: through PEG tube 800 units BID vitamin D Exercise:not active Low cortisol levels Adrenal hyperplasia CT chest abdomen pelvis February 2024 showed mild asymmetric fullness of the left adrenal gland which is unchanged. CT abdomen 01/03/2023: Showed stable fullness of both adrenal glands. 05/01/2021: Also commented on left adrenal gland is thickened without any discrete mass, right adrenal gland unremarkable Lab workup done March 2023 showed aldosterone of 3, renin activity of 0.5, random cortisol of 8.2, no ACTH level done at that time, mildly elevated plasma free metanephrine of 63 and mildly elevated plasma free normetanephrine of 162, normal 24 hour urine free metanephrine and normetanephrine levels from 04/06/2023. No fractures, has osteoporosis which is severe as noted above. Has well-controlled blood pressure, only on amlodipine. No history of diabetes mellitus. No easy bruising, no proximal muscle weakness he does not have problems with the obesity, if anything he has had failure to thrive due to dysphagia, now better with PEG tube. Incidentally we did note low baseline cortisol levels in August 2024When his cortisol levels are noted to be around 2.6 from 10:00 and 2.7. Repeat labs at 08:00 showed random cortisol of 4.4, free cortisol of 0.20. His baseline cortisol levels are on the lower side. Acth is anywhere from 9-11. He is on megestrol, this can suppress pituitary adrenal axis leading to secondary adrenal insufficiency. He does not have any symptoms of nausea, vomiting, lightheadedness, dizziness. Blood pressure is normal. MRI brain from March 2024 was normal which commented on a normal pituitary gland. However given that he is at risk of developing secondary adrenal insufficiency, I would like to perform, cosyntropin stimulation test. Because we were doing secondary workup for osteoporosis we also got a 24 hour urine cortisol for him which was normal, so at this time suspicion for [place]'s or hypercortisolism is actually low. Interval history 10/01/2024: Normal cosyntropin stimulation test Failed to do dexamethasone suppression test again Male hypogonadism Blood work from August 2024 showed low free testosterone of 23.1 and low bioavailable testosterone of 46.5. SHBG 55. Normal total testosterone of 282. These labs were done at 10:00. Repeat labs done in September 2024 at 08:00 again showed low free testosterone of 30.2 and low bioavailable testosterone of 6.9. SH pg 36, testosterone total 254. FSH and LH were inappropriately normal from August 2024. 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 He denies any history of radiation or trauma to his head . MRI of the pituitary from March 2024 was also unremarkable. No pituitary tumor noted. Has a history of HIV and these patients can have hypogonadism and need testosterone replacement for overall wellness. Low hematocrit level also consistent with low testosterone levels. Total testosterone levels are falsely elevated in these patients usually due to high SHBG levels. He is also seeing he has not had any erections for the past 5 years or so. He is not sexually active. Interval history 11/26/2024: Pending testosterone levels Pending urolopgy appointment Physical exam General: sitting comfortably in no acute distress HEENT: normocephalic/atraumatic Neck: supple, symmetrical, no thyromegaly Cardiac: normal heart sounds Pulm: normal breath sounds B/L, no added breath sounds Abd: not distended, no tenderness, PEG tube noted Extremities: no edema, no signs of myxedema Laboratory Tests 01/04/23 04/04/23 04/06/23 05:08 09:39 06:00 Sodium Potassium 2.9 L D Creatinine Estimated GFR Calcium Phosphorus Magnesium Albumin Renin Activity 0.55 Aldosterone 3 Aldosterone/Renin Ratio 5.5 PTH Intact 30 Random Cortisol 8.2 Plasma Free Metaneph 63 H Plasma Free Normeta 162 H Plas Total Metaneph 225 H U Free Metanephrine 160 U Normetanephrine 24h 310 U Tot Metanephrine 24h 470 03/15/24 03/17/24 03/18/24 12:51 05:54 05:54 Sodium Potassium Creatinine Estimated GFR Calcium 8.0 L 8.5 D Phosphorus 2.6 L Magnesium Albumin Renin Activity Aldosterone Aldosterone/Renin Ratio PTH Intact Random Cortisol Plasma Free Metaneph Plasma Free Normeta Plas Total Metaneph U Free Metanephrine U Normetanephrine 24h U Tot Metanephrine 24h 05/07/24 07/15/24 04:06 12:26 Sodium 145 Potassium 3.8 Creatinine 0.88 Estimated GFR > 60 Calcium 10.1 D 10.2 Phosphorus Magnesium 2.3 Albumin 3.9 Renin Activity Aldosterone Aldosterone/Renin Ratio PTH Intact Random Cortisol Plasma Free Metaneph Plasma Free Normeta Plas Total Metaneph U Free Metanephrine U Normetanephrine 24h U Tot Metanephrine 24h Laboratory Tests 07/15/24 09/08/24 09/08/24 12:26 08:00 10:00 Hgb 13.5 L Hct 41.3 L Creatinine 0.92 Estimated GFR > 60 Calcium 10.2 Ionized Calcium 5.6 H Phosphorus 3.6 Alk Phos Bone Specific 8.5 Collgn I C-Telopeptide 552 H 25-OH Vitamin D Total 65.5 1,25 Dihydroxy Vit D TSH 0.68 FSH 6.9 Luteinizing Hormone 3.4 Testosterone Level 282 Free Testoster w SHBG 23.1 L Bioavail Testosterone 46.5 L Sex Hormone Bind Glob 55 DHEA Sulfate 65 PTH Intact 25.0 Random Cortisol 2.6 Free Cortisol ACTH 9 Urine Total Volume 2125 Ur 24 Hour Volume 2125 Ur Creatinine 24 Hour 1.24 Ur Sodium 24 Hour 119.0 Ur Calcium 24 Hr 219 Calcium/Creat 24 Hr 178 Ur Free Cortisol 24 Hr 35.1 09/15/24 09/16/24 10/01/24 10:36 09:58 08:16 Hgb Hct Creatinine 0.80 Estimated GFR > 60 Calcium 9.7 Ionized Calcium 5.4 Phosphorus 3.6 Alk Phos Bone Specific Collgn I C-Telopeptide 25-OH Vitamin D Total 44 1,25 Dihydroxy Vit D 24 TSH FSH Luteinizing Hormone Testosterone Level 254 Free Testoster w SHBG 30.2 L Bioavail Testosterone 56.9 L Sex Hormone Bind Glob 36 DHEA Sulfate 41 PTH Intact 36.3 Random Cortisol 2.7 4.4 Free Cortisol 0.20 ACTH 9 11 Urine Total Volume Ur 24 Hour Volume Ur Creatinine 24 Hour Ur Sodium 24 Hour Ur Calcium 24 Hr Calcium/Creat 24 Hr Ur Free Cortisol 24 Hr Laboratory Tests 10/01/24 11/05/24 11/21/24 08:16 07:41 11:51 Hgb 14.7 Hct 42.2 Creatinine Estimated GFR Calcium Iron TIBC % Saturation Unsat Iron Binding Albumin Total PSA 25-OH Vitamin D Total 44 1,25 Dihydroxy Vit D 24 FSH Luteinizing Hormone Testosterone Level 254 Free Testoster w SHBG 30.2 L Bioavail Testosterone 56.9 L Sex Hormone Bind Glob 36 DHEA Sulfate 41 PTH Intact 36.3 PTH Related Protein 23 H Random Cortisol 4.4 Free Cortisol 0.20 Cortisol Baseline 36.4 Cortisol 30 Minute 12.9 L Cortisol 60 Minute 39.4 ACTH 17-Hydroxyprogesterone Dexamethasone 11/26/24 11/28/24 12/02/24 07:36 10:13 08:04 Hgb Hct Creatinine 0.80 Estimated GFR > 60 Calcium 9.5 Iron 133 TIBC 370 % Saturation 36 Unsat Iron Binding 237 Albumin 4.1 Total PSA 0.41 25-OH Vitamin D Total 1,25 Dihydroxy Vit D FSH 8.4 Luteinizing Hormone 5.1 Testosterone Level 317 Free Testoster w SHBG 44.2 L Bioavail Testosterone 83.2 L Sex Hormone Bind Glob 30.5 DHEA Sulfate 38 PTH Intact PTH Related Protein Random Cortisol 14.6 4.7 Free Cortisol Cortisol Baseline Cortisol 30 Minute Cortisol 60 Minute ACTH 39 13 17-Hydroxyprogesterone 51 Dexamethasone 78 Imaging BONE DENSITOMETRY 03/07/23 CLINICAL INDICATION: Compression deformity of vertebra. COMPARISON: None (current study represents initial baseline exam). TECHNIQUE: Using a [employer] DXA System (software version: 13.1) manufactured by [employer], dual-energy x-ray absorptiometry was performed of the lumbar spine and left hip. The images are of good technical quality. Summary results are attached. FINDINGS: LEFT FEMUR, NECK: BMD 0.716 g/cm2, Z-score -1.4, T-score -2.7, osteoporosis. LEFT FEMUR, TOTAL: BMD 0.801 g/cm2, Z-score -1.2, T-score -2.1, osteopenia. AP SPINE L1-L4: BMD 0.681 g/cm2, Z-score -3.5, T-score -4.5, osteoporosis. IDENTIFIED RISK FACTORS: Low calcium intake, history of fracture (adult). HISTORY OF FRACTURE: Ankle. MEDICATIONS: Multivitamin. MM/XR DEXA axial skeleton IMPRESSION: 1. DIAGNOSIS: Osteoporosis based on the lowest T-score value of -4.5 in the lumbar spine applying World Health Organization criteria. 2. 10-YEAR FRACTURE RISK PREDICTION, FRAX: According to the guidelines, FRAX calculation should only be performed on patients in the osteopenia bone density category. Therefore, FRAX was not performed on this patient. CT CHEST, ABDOMEN AND PELVIS WITHOUT CONTRAST. 02/15/24 CLINICAL INFORMATION: Chest pain, shortness of breath, left flank pain. COMPARISON: CT chest 01/10/2024. CT abdomen/pelvis 01/03/2023. TECHNIQUE: Multidetector volumetric imaging was performed from the thoracic inlet through the pubic symphysis without IV contrast. Sagittal and coronal reformatted images were obtained on the technologist's workstation. This CT examination was performed using dose optimization techniques as appropriate, variously including the following: *Automated exposure control *Adjustment of mA and/or kV according to patient size (this includes techniques or standardized protocols for targeted exams where dose is matched to indication/reason for exam; i.e. extremities or head) *Use of iterative reconstruction technique DLP: 418 mGy-cm FINDINGS: Limited noncontrast examination. CHEST: Lung: Evaluation is limited due to respiratory motion. No dense consolidation. Dependent subsegmental atelectasis and/or scarring. Layering intraluminal secretions are noted in the upper trachea, ciro and left mainstem bronchi. Focal mild bronchiectasis and architectural distortion in the superior aspect of the right lower lobe (7:156). Minimal groundglass attenuation of the lung parenchyma in the right apex (7:53). Few bilateral up to 3 mm solid pulmonary nodules, for instance in the right lower lobe images 256 and 228 series 7. Very subtle focal groundglass nodule in the right lower lobe measuring 8 mm image 178 series 7. Mediastinum: Cardiomegaly. No pericardial effusion. No mediastinal lymphadenopathy. Evaluation of the hilar structures is limited in the absence of IV contrast. Normal appearance of the thyroid gland. Pleura: No pleural effusion. No pneumothorax. Chest Wall/Axilla: No lymphadenopathy by size criteria. Osseous structures: Stable multilevel vertebral body height loss. Thoracic spondylosis. Unchanged deformities of the left seventh and eighth ribs with overlying metallic densities along the posterior aspect of these ribs. No acute osseous findings. ABDOMEN/PELVIS: Peritoneal Space: No free air or free fluid. Liver, Gallbladder, Biliary Tree: The liver is normal in size, shape, and attenuation. No focal hepatic lesion or biliary ductal dilatation is present. The gallbladder is unremarkable with no evidence of radiopaque gallstones, gallbladder wall thickening, or obvious pericholecystic inflammatory changes. Pancreas: Unremarkable. Spleen: Unremarkable. Adrenal Glands: Mild asymmetric fullness of the left adrenal gland is unchanged. Kidneys and Ureters: Multiple bilateral nonobstructive renal calculi measuring up to 3 mm. No hydronephrosis. No perinephric fat stranding. Bladder: Punctate calcification abutting the left posterior bladder wall (11:65). Gastrointestinal Tract: Gastrostomy tube. The stomach and the small bowel are nondilated. Normal appendix. Mild colonic diverticulosis without pericolonic inflammatory changes. No evidence of bowel obstruction. Abdominal Wall: No significant hernia is appreciated. Lymphovascular Structures: No lymphadenopathy by size criteria. Normal caliber abdominal aorta. Pelvic Viscera: Unremarkable. Osseous Structures: No acute osseous findings. CT/CT abdomen pelvis wo IV con IMPRESSION: 1. No focal consolidation or significant groundglass disease. Intraluminal secretions in the trachea and left mainstem bronchi that could be related with mucous secretions or aspirated material and that could predispose to aspiration. 2. Few bilateral groundglass and solid pulmonary nodules measuring up to 8 mm. Following Fleischner guidelines, follow-up CT chest in 3-6 months is recommended. 3. Nonobstructive bilateral renal calculi. 4. Punctate calcification abutting the left posterior bladder wall that could be related with a recently passed stone. Recommend attention on follow-up in future examinations to ensure the absence of underlying mural lesions. 5. Diverticulosis but no evidence of acute diverticulitis. CT ABDOMEN AND PELVIS WITHOUT CONTRAST 12/17/20 CLINICAL INFORMATION: Abdominal pain. No bowel movement in 5 days. Nausea. COMPARISON: CT abdomen and pelvis noncontrast 04/03/2020 TECHNIQUE: Multidetector volumetric imaging was performed from the superior aspect of the liver through the pubic symphysis. Sagittal and coronal reformatted images were obtained on the technologist's workstation. This CT examination was performed using dose optimization techniques as appropriate, variously including the following: *Automated exposure control *Adjustment of mA and/or kV according to patient size (this includes techniques or standardized protocols for targeted exams where dose is matched to indication/reason for exam; i.e. extremities or head) *Use of iterative reconstruction technique DLP: 347 mGy-cm FINDINGS: LUNG BASES: The visualized lung bases are unremarkable. LIVER, GALLBLADDER, AND BILIARY TREE: The liver is normal in size and smooth in contour. There is mild hepatic steatosis. No focal hepatic parenchymal lesion or intrahepatic ductal dilatation. The gallbladder is unremarkable with no evidence of radiopaque gallstones, gallbladder wall thickening, or obvious pericholecystic inflammatory changes. PANCREAS: Mildly atrophic. No duct dilatation or retroperitoneal inflammatory changes. SPLEEN: Normal in size. Small splenule again seen left upper quadrant, 1 cm. ADRENAL GLANDS: Mild fullness left adrenal stable. Right adrenal unremarkable. KIDNEYS AND URETERS: The kidneys are normal in size and smooth in contour and show no hydronephrosis. There is no hydroureter or perinephric stranding. Again, multiple small nonobstructing intrarenal calculi are present under 5 mm. No ureteral calculi. BLADDER: Unremarkable. GASTROINTESTINAL TRACT: There is moderate stool throughout the colon. There is no small or large bowel dilatation or focal inflammatory changes in the bowel or mesentery. No rectal fecal impaction. The appendix is not demonstrated with certainty and not visible on prior CT 2019 as well. There are no inflammatory changes around the terminal ileum or cecum. No ascites or fluid collection. ABDOMINAL WALL: No significant hernia is appreciated. LYMPH NODES: No lymphadenopathy. VASCULAR: Unremarkable. PELVIC VISCERA: Unremarkable. OSSEOUS STRUCTURES: Unremarkable. CT/CT abdomen pelvis wo con IMPRESSION: 1. Moderate stool throughout colon consistent with clinical history. No bowel obstruction or focal inflammatory changes. 2. Bilateral small nonobstructing renal calculi similar to prior CT 2020. No hydronephrosis or perinephric stranding. MR BRAIN WITHOUT AND WITH CONTRAST 03/17/24 CLINICAL INFORMATION: Generalized weakness. Leukoencephalopathy. COMPARISON: CT head from 03/07/2024. Brain MRI from 10/26/2023. TECHNIQUE: MRI of the brain was obtained using routine sequences without and following the administration of 5 mL of Gadavist intravenous contrast. FINDINGS: No focal restricted diffusion is demonstrated to suggest acute or subacute cerebral ischemia. No evidence of acute or chronic hemorrhagic products on heme-sensitive imaging. Scattered and partially confluent periventricular, deep white matter, and brainstem T2 FLAIR hyperintensities most commonly seen with mild to moderate underlying microangiopathy. Proportional prominence of the ventricles and sulcal spaces without evidence of obstructive hydrocephalus. No abnormal mass effect. No midline shift. Normal appearance of the pituitary gland. Normal positioning of the cerebellar tonsils. Normal arterial and venous vascular flow voids are present. No abnormal contrast enhancement. Normal, homogeneous marrow signal. Mucus retention cyst within the left maxillary sinus. Mild mucosal thickening of the remaining paranasal sinuses. No signal abnormalities within the mastoids. MR/MR head/brain wo/w con IMPRESSION: 1. No acute intracranial abnormalities. No abnormal intracranial enhancement. 2. Mild to moderate chronic white matter changes and generalized cerebral volume loss most commonly seen with microangiopathy. [facility] Medical History Lower urinary tract symptoms Hypogonadism in male Low serum cortisol level Adrenal hyperplasia Osteoporosis Height loss HIV (human immunodeficiency virus infection) Asthma Dysphagia Adult failure to thrive Adult failure to thrive Multiple rib fractures History of empyema of pleura (01/05/23) Hypertension Closed fracture of leg Hepatitis C Kidney stones Pleuritic chest pain Pneumonia Substance abuse Hemorrhoids Depression HIV (human immunodeficiency virus infection) Asthma Surgical History H/O hemorrhoidectomy Family History Maternal Grandmother Lung cancer Maternal Aunt Lung cancer Mother Lung cancer Social History Household Members: Caregiver Household Members Other:: lives with MAINTENANCE MECHANIC TELEPHONE Housing: Apartment Do you presently have visiting nurse or other home services: Yes Alcohol intake: never Patient Tobacco Use Status: Former Tobacco user Tobacco use type: Cigarette e-Cigarette/Vaping Use: Never Used Second Hand Smoke Exposure: No Substance Use Type: Crack/Cocaine Advance Directives Date on File: 04/25/21 service: No Current occupational status: disabled Gender identity: Male Assessment & Plan Assessment & Plan (1) Osteoporosis: Code(s): M81.0 - Age-related osteoporosis without current pathological fracture Category: Medical Qualifiers: Osteoporosis type: age-related Presence of current pathological fracture: without current pathological fracture Qualified Code(s): M81.0 - Age-related osteoporosis without current pathological fracture Plan: 59-year-old male with past medical history significant for HIV, hepatitis-C, seizure disorder, hypertension, prediabetes, anxiety/depression, asthma, history of left lung empyema status post drainage, chronic respiratory failure and recurrent aspiration pneumonia, parkinsonism, cardiomyopathy coming in today to establish care for adrenal hyperplasia and osteoporosis. Osteoporosis was diagnosed on bone density scan in February 2023 which showed severe osteoporosis in the lumbar spine with T-score of-4.5 with L4 as low as-5.1. He also has osteoporosis at the left femoral neck with T-score of -2.7. Patients who have so much discordance in between bone densities in the spine and hip are also at higher risk of fracture compared to those who do not. Plus given his T-scores, he is at severe risk of fractures given his bone fragility. Has risk factors are HIV, history of hepatitis-C, history of seizure disorder with the use of medications in the past, chronic PPI use, malnutrition, chronic respiratory failure. I discussed conservative measures including adequate calcium intake, adequate vitamin D levels as well as the role of weightbearing exercises in general being good for bone health. Vitamin-D levels, he i from August 2000 12/29/2047 is appropriates to continue taking says 100 mg of calcium and 800 units of vitamin-D b.i.d. through his PEG tube as he is taking. Labs from 10/01/2024, showed normal kidney function with a EGFR greater than 60, calcium of 9.7 with albumin of 4.1, corrected calcium would be 9.6, ionized calcium 5.4, normal phosphorus 3.6, normal PTH, of 36.3, vitamin-D level of 44. Labs from August 2024 showed CTX elevated at 552, bone specific alkaline phosphatase low at 8.5. All of this points towards hi bone resorption. Normal 24 hour urine calcium levels of 219 from August 2024. Started Evenity 210 mg monthly injection on 10/28/2024. Plan: -continue Evenity 210 mg (105 mg X 2) injection monthly to complete a 12 month course (started 10/28/2024), we will plan to transition to bisphosphonates after -continue vitamin-D 800 units b.i.d. -continue calcium intake milk 3 cups a day through PEG tube in 600 mg b.i.d. of calcium supplement -stressed importance of walking and weight-bearing exercise e. -we will plan to repeat a bone density scan in November 2025 once he is done with evenity (2) Adrenal hyperplasia: Code(s): E27.8 - Other specified disorders of adrenal gland Category: Medical Plan: 59-year-old male who is noted to have adrenal hyperplasia at least since [address] scan of the abdomen revealed fullness of the left adrenal gland, subsequent CT scans, most recently done in February 2024 again showed mild asymmetric fullness of the left adrenal gland. I reviewed the images myself the right adrenal gland is also slightly more thickened than normal. The left 1 definitely he is much more full, no discrete mass identified. He has had functional Lab workup done March 2023 showed aldosterone of 3, renin activity of 0.5, random cortisol of 8.2, no ACTH level done at that time, mildly elevated plasma free metanephrine of 63 and mildly elevated plasma free normetanephrine of 162, normal 24 hour urine free metanephrine and normetanephrine levels from 04/06/2023. Lab workup clearly ruled out primary hyperaldosteronism as well as no concern for pheochromocytoma. Mild elevations in plasma metanephrine normetanephrine scan be seen in many other conditions/interference from medications. This is not significant elevation to be concerned about pheochromocytoma. Given that he does have osteoporosis, we had plan to do a dexamethasone suppression test however he could not perform it because he did not show up on time. Incidentally we did note low baseline cortisol levels in August 2024When his cortisol levels are noted to be around 2.6 from 10:00 and 2.7. Repeat labs at 08:00 showed random cortisol of 4.4, free cortisol of 0.20. His baseline cortisol levels are on the lower side. Acth is anywhere from 9-11. He is on megestrol, this can suppress pituitary adrenal axis leading to secondary adrenal insufficiency. He does not have any symptoms of nausea, vomiting, lightheadedness, dizziness. Blood pressure is normal. MRI brain from March 2024 was normal which commented on a normal pituitary gland. September 2024: Normal cosyntropin stimulation test. Normal 24 hour urine cortisol , so at this time suspicion for Luz Elena's or hypercortisolism is actually low. However I will do the 1 mg dexamethasone suppression test for the sake of completing workup. Given stability of the adrenal fullness since 2020, I am not concerned about malignancy, I am holding off on doing CT of the adrenal glands. He has not been able to successfully get the dexamethasone suppression test. At this time I am not pushing him to repeat the test overall does not have any cushingoid features such as abdominal striae, skin thinning, frequent bruising. We will continue to monitor him clinically. Seventeen hydroxyprogesterone was normal. Plus his 24 hour urine cortisol level was also normal which is reassuring. Plan: -continue to monitor clinically for features of hypercortisolism (3) Hypogonadism in male: Code(s): E29.1 - Testicular hypofunction Category: Medical Plan: Blood work from August 2024 showed low free testosterone of 23.1 and low bioavailable testosterone of 46.5. SHBG 55. Normal total testosterone of 282. These labs were done at 10:00. Repeat labs done in September 2024 at 08:00 again showed low free testosterone of 30.2 and low bioavailable testosterone of 6.9. SH BG 36, testosterone total 254. FSH and LH were inappropriately normal from August 2024. 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 He denies any history of radiation or trauma to his head . MRI of thebrain with commen on pituitary from March 2024 was also unremarkable. No pituitary tumor noted. Has a history of HIV and these patients can have hypogonadism and need testosterone replacement for overall wellness. Low hematocrit level also consistent with low testosterone levels. Total testosterone levels are falsely elevated in these patients usually due to high SHBG levels. He is not had any erections for the past 5 years or so. He is not sexually active. Pending repeat 08:00 testosterone levels. Normal PSA, iron panel from November 2024. He has lower urinary tract symptoms, he is pending a retroperitoneal ultrasound and follow up with urology. He has never had a stroke or heart attack. However he does have a history of PE from June 2024. Sounds like was provoked due to long periods of immobilization in bed, he was on Eliquis up until December 2024 per patient but that has been now stopped. I discussed with him risks of testosterone replacement therapy, there is conflicting results regarding increased risk of thrombosis however erythrocytosis can put you at increased risk of thrombosis. I will have him repeat his hemoglobin and hematocrit levels prior to starting therapy. At this time I am waiting for him to have follow up with the Urology once he has had is retroperitoneal ultrasound, if there is no concern for prostatic hyperplasia, we can start therapy. Plan: - follow up with Urology -we will consider starting testosterone replacement therapy in the near future -follow up in 3 months with labs a week or 2 prior Plan See above Orders: Orders Liver Panel 10 Weeks E27.8 - Other specified disorders of adrenal gland, E29.1 - Testicular hypofunction, M81.0 - Age-related osteoporosis without current pathological fracture Hemoglobin 10 Weeks E27.8 - Other specified disorders of adrenal gland, E29.1 - Testicular hypofunction, M81.0 - Age-related osteoporosis without current pathological fracture Albumin Level 10 Weeks E27.8 - Other specified disorders of adrenal gland, E29.1 - Testicular hypofunction, M81.0 - Age-related osteoporosis without current pathological fracture Creatinine 10 Weeks E27.8 - Other specified disorders of adrenal gland, E29.1 - Testicular hypofunction, M81.0 - Age-related osteoporosis without current pathological fracture Vitamin D 25-OH Total 10 Weeks E27.8 - Other specified disorders of adrenal gland, E29.1 - Testicular hypofunction, M81.0 - Age-related osteoporosis without current pathological fracture Lipid Panel 10 Weeks E27.8 - Other specified disorders of adrenal gland, E29.1 - Testicular hypofunction, M81.0 - Age-related osteoporosis without current pathological fracture Hematocrit 10 Weeks E27.8 - Other specified disorders of adrenal gland, E29.1 - Testicular hypofunction, M81.0 - Age-related osteoporosis without current pathological fracture Calcium 10 Weeks E27.8 - Other specified disorders of adrenal gland, E29.1 - Testicular hypofunction, M81.0 - Age-related osteoporosis without current pathological fracture Patient Instructions: Continue Evenity injections Continue vitamin D supplements Continue milk intake Walk 30 mins 5 days a week Follow up with urology after ultrasound See me back in 3 months with blood work done fasting a week or two before Coding Level of Care Code Est Pt Level 3 (51638) Diagnoses Age-related osteoporosis without current pathological fracture M81.0 Osteoporosis type: age-related Presence of current pathological fracture: without current pathological fracture Adrenal hyperplasia E27.8 Hypogonadism in male E29.1
[2025-01-09 09:24] VITALS: BP 98/70; PULSE 92; O2SAT 97; BMI 25.1
--- OUTSIDE RECORDS SUMMARY | 2025-01-09 09:58 | XMS_ITS | Data Portability ---
Author Organization LYNN WHITE MD [facility], Main Office Address [address] [place] [address] Assessment No assessment recorded. Plan of Treatment Reminders Order Date Submit Date Provider Last Modified By Organization Details Last Modified Time Details Appointments B20 FOLLOW UP 2024 10:20A Wilmer Street MD Not available Not available Not available RESEARCH FOLLOW UP 2024 10:00A Wilmer [address] MD Not available Not available Not available Lab None recorded . Referral None recorded . Procedures None recorded . Surgeries None recorded . Imaging electroc ardiogra m 2023 024 cheryl Main Office, [address] [place] [address], [address], 07/15/2024 15:47:38 Medication Orders clotrima zole 10 mg klaudia 2024 025 [facility], [address] [place], [address], 12/30/2024 16:32:25 Biktarvy 50 mg-200 mg-25 mg tablet 2024 025 [facility], [address] [place], [address], 12/30/2024 16:32:25 clotrima zole 10 mg klaudia 2024 025 [facility], [address] [place], [address], 11/25/2024 13:20:54 Benadryl 25 mg capsule 2024 025 [facility], [address] [place], [address], 11/25/2024 13:20:55 Biktarvy 50 mg-200 mg-25 mg tablet 2024 025 [facility], [address] [place], [address], 11/25/2024 13:20:54 clotrima zole 10 mg klaudia 2024 025 [facility], [address] [place], [address], 10/21/2024 14:29:45 Biktarvy 50 mg-200 mg-[address] [facility] [address] [place], [address], 10/21/2024 14:30:45 Patient TargetsNo targets recorded. Patient Instructions Encounter Date Encounter Id Patient Instructions Last Modified By Organization Details Last Modified Time 10/21/2024 [id number] Clotrimazole Oral Lozenge (CLOTRIMAZOLE LOZENGE - MUCOUS MEMBRANE (ORAL)) cmartorell Not available 10/21/2024 14:29:44 Reason for Referral None Reported. Results Created Date Observation Date Name Description Value Unit Range Abnormal Flag Note LastModifiedBy Organization Detail LastModifiedTime 06/18/2006/04/2024 US, abdom en, compl ete No observ ation record ed. [email or web address] [place], [address], 06/18/2024 11:12:25 07/15/20 24 07/15/2024 elect rocar diogr am No observ ation record ed. [email or web address] Main Office [address] [place], [address], 07/15/2024 17:12:05 07/17/20 elect rocar diogr am No observ ation record ed. [email or web address] Main Office [address] [place], [address], 07/17/2024 14:15:04 Result Notes None recorded. Problems Name Problem SNOMED Code Status Onset Date Resolution Date Notes Provider Name and Address Organization Details Recorded Time Asthma 369550125 Active 2006 Asthma; snomeddesc ription: Asthma; Report Immunity to Registry: Yes; Asthma; Report Immunity to Registry: Yes; ReasonDate : 10/13/2019 ; ; Start Date : 10/13/2019 Asthma; snomeddesc ription: Asthma; Report Immunity to Registry: Yes; Not Available [facility] 4 06:58:53 Male hypogonad ism 67728204 Active 2012 Male hypogonadi sm; snomeddesc ription: Male hypogonadi sm; Report Immunity to Registry: Yes; Not Available [facility] 4 06:58:53 Diarrhea 33314994 Active 2006 Diarrhea; snomeddesc ription: Diarrhea; Report Immunity to Registry: Yes; Diarrhea, unspecifie d; snomeddesc ription: Diarrhea; Report Immunity to Registry: Yes; Not Available [facility] 4 06:58:53 Substance abuse 80810266 Active 2006 Substance abuse; snomeddesc ription: Substance abuse; Report Immunity to Registry: Yes; Notes: opiate/suad jolene/benzo ; Not Available [facility] 4 06:58:53 Human immunodef iciency virus infection 23948239 Active 1991 Human immunodefi ciency virus [HIV] disease; snomeddesc ription: Human immunodefi ciency virus infection; Report Immunity to Registry: Yes; Human immunodefi ciency virus infection; snomeddesc ription: Human immunodefi ciency virus infection; Report Immunity to Registry: Yes; Not Available [facility] 4 06:58:53 Steatotic liver disease 239948483 Active 2006 Steatosis of liver; snomeddesc ription: Steatosis of liver; Report Immunity to Registry: Yes; Notes: u/s 2021; Fatty (change of) liver, not elsewhere classified ; snomeddesc ription: Steatosis of liver; Report Immunity to Registry: Yes; Notes: u/s 2021; Not Available [facility] 4 06:58:53 Herpesvir us infection 56482319 Active 2009 Herpesvira l infection, unspecifie d; snomeddesc ription: Herpes simplex; Report Immunity to Registry: Yes; Notes: HSV 1 pos serology; HSV 2 neg serology; Not Available [facility] 4 06:58:53 Fibromyos itis 03172673 Active 2006 Myalgia and myositis, unspecifie d; snomeddesc ription: Fibromyalg ia; Report Immunity to Registry: Yes; Notes: Chronic pain multiple/c hronic back pain; Not Available [facility] 4 06:58:53 Herpes simplex 02298876 Active 2009 Herpes simplex; snomeddesc ription: Herpes simplex; Report Immunity to Registry: Yes; Notes: HSV 1 pos serology; HSV 2 neg serology; Not Available [facility] 4 06:58:54 Kidney stone 70740042 Active 2001 Calculus of kidney; snomeddesc ription: Kidney stone; Report Immunity to Registry: Yes; Kidney stone; snomeddesc ription: Kidney stone; Report Immunity to Registry: Yes; Not Available [facility] 4 06:58:54 History of calculus of kidney 491459772 Active 2001 History of calculus of kidney; snomeddesc ription: History of calculus of kidney; Report Immunity to Registry: Yes; Not Available [facility] 4 06:58:54 Type B viral hepatitis 92603795 Active 2006 Type B viral hepatitis; snomeddesc ription: Type B viral hepatitis; Report Immunity to Registry: Yes; Notes: core ab pos; s ag neg; s ab neg HBV vL nondetecte d 2016; 2017; Not Available [facility] 4 06:58:54 Hyperplas ia of prostate 208800556 Active 2014 Hyperplasi a of prostate, unspecifie d, without urinary obstructio n and other lower urinary symptoms (LUTS); snomeddesc ription: Hyperplasi a of prostate; Report Immunity to Registry: Yes; Hyperplas ia of prostate; snomeddesc ription: Hyperplasi a of prostate; Report Immunity to Registry: Yes; Not Available [facility] 4 06:58:54 Anxiety 32476867 Active 1996 Anxiety; snomeddesc ription: Anxiety; Report Immunity to Registry: Yes; Not Available [facility] 4 06:58:54 Testicula r hypofunct ion 736163456 Active 2012 Other testicular hypofuncti on; snomeddesc ription: Male hypogonadi sm; Report Immunity to Registry: Yes; Not Available [facility] 4 06:58:54 Seasonal allergic rhinitis 110255688 Active 2012 Other seasonal allergic rhinitis; snomeddesc ription: Seasonal allergy; Report Immunity to Registry: Yes; Notes: hx nasal congestion ; Not Available [facility] 4 06:58:54 Onychomyc osis due to dermatoph yte 943030318 Active 2017 Tinea unguium; snomeddesc ription: Onychomyco sis; Report Immunity to Registry: Yes; Notes: feet digits; Not Available [facility] 4 06:58:55 Sleep apnea 39542284 Active 1999 Sleep apnea; snomeddesc ription: Sleep apnea; Report Immunity to Registry: Yes; Unspecifi ed sleep apnea; snomeddesc ription: Sleep apnea; Report Immunity to Registry: Yes; Not Available [facility] 4 06:58:55 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 25883070 Active 2006 Other psychoacti ve substance abuse, uncomplica lucho; snomeddesc ription: Substance abuse; Report Immunity to Registry: Yes; Notes: opiate/suad jolene/benzo ; Not Available [facility] 4 06:58:55 Viral hepatitis B without hepatic coma 188675898 Active 2006 Unspecifie d viral hepatitis B without hepatic coma; snomeddesc ription: Type B viral hepatitis; Report Immunity to Registry: Yes; Notes: core ab pos; s ag neg; s ab neg HBV vL nondetecte d 2016; 2017; Not Available [facility] 4 06:58:55 Blood chemistry outside reference range 920048709 Active 2012 Other specified abnormal findings of blood chemistry; snomeddesc ription: Decreased testostero ne level; Report Immunity to Registry: Yes; Notes: hypogoandi sm; Not Available [facility] 4 06:58:55 Arthritis 3144219 Active 1998 Arthritis; snomeddesc ription: Arthritis; Report Immunity to Registry: Yes; Notes: Osteoatrth ris multiple; Not Available [facility] 4 06:58:55 History of urinary stone 505803660 Active 2001 Personal history of urinary calculi; snomeddesc ription: History of calculus of kidney; Report Immunity to Registry: Yes; Not Available [facility] 4 06:58:56 Fibromyal mika 421438293 Active 2006 Fibromyalg ia; snomeddesc ription: Fibromyalg ia; Report Immunity to Registry: Yes; Notes: Chronic pain multiple/c hronic back pain; Not Available [facility] 4 06:58:56 Lyme disease 97838992 Active 2017 Lyme disease; Report Immunity to Registry: Yes; Notes: tx cefuroxime x14 d (hx all Doxy); Not Available [facility] 4 06:58:56 Headache 86103277 Active 2008 Headache; snomeddesc ription: Headache; Report Immunity to Registry: Yes; Notes: migraine; Headache; snomeddesc ription: Headache; Report Immunity to Registry: Yes; Notes: migraine; Not Available [facility] 4 06:58:56 Hypertens marj disorder 11121527 Active 2017 Hypertensi ve disorder; snomeddesc ription: Hypertensi ve disorder; Report Immunity to Registry: Yes; Not Available [facility] 4 06:58:56 Arthropat hy 229276212 Active 1998 Arthropath y, unspecifie d, site unspecifie d; snomeddesc ription: Arthritis; Report Immunity to Registry: Yes; Notes: Osteoatrth ris multiple; Not Available [facility] 4 06:58:56 Essential hypertens ion 54363072 Active 2017 Essential (primary) hypertensi on; snomeddesc ription: Hypertensi ve disorder; Report Immunity to Registry: Yes; Not Available [facility] 4 06:58:57 Testoster one level below reference range 306907828 Active 2012 Decreased testostero ne level; snomeddesc ription: Decreased testostero ne level; Report Immunity to Registry: Yes; Notes: hypogoandi sm; Not Available [facility] 4 06:58:57 Insomnia 347604814 Active 1996 Insomnia; Report Immunity to Registry: Yes; Not Available [facility] 4 06:58:57 Anxiety state 840200722 Active 1996 Anxiety state, unspecifie d; snomeddesc ription: Anxiety; Report Immunity to Registry: Yes; Not Available [facility] 4 06:58:57 Onychomyc osis 207933863 Active 2017 Onychomyco sis; snomeddesc ription: Onychomyco sis; Report Immunity to Registry: Yes; Notes: feet digits; Not Available [facility] 4 06:58:57 Chronic hepatitis C 082614729 Active 2006 Chronic hepatitis C without mention of hepatic coma; snomeddesc ription: Chronic hepatitis C; Report Immunity to Registry: Yes; Notes: F0 2011; CC IL28; g1a EOT 06/21/14 s/p 24 weeks tx Ribapak 1200mg po qd and Sovaldi 24 weeks SVR 15 HCV VL neg 2015;2017; 12/2021 F2 ; Chronic hepatitis C; snomeddesc ription: Chronic hepatitis C; Report Immunity to Registry: Yes; Notes: F0 2011; CC IL28; g1a EOT 1012/14 s/p 24 weeks tx Ribapak 1200mg po qd and Sovaldi 24 weeks SVR 15 HCV VL neg 2015;2017; 12/2021 F2 ; Not Available [facility] 4 06:58:57 Depressiv e disorder 95831717 Active 1996 Depressive disorder, not elsewhere classified ; snomeddesc ription: Depressive disorder; Report Immunity to Registry: Yes; Depressiv e disorder; snomeddesc ription: Depressive disorder; Report Immunity to Registry: Yes; Not Available [facility] 4 06:58:58 Seasonal allergy 857617302 Active 2012 Seasonal allergy; snomeddesc ription: Seasonal allergy; Report Immunity to Registry: Yes; Notes: hx nasal congestion ; Not Available [facility] 4 06:58:58 Loss of appetite 23578044 Active 2012 Anorexia; snomeddesc ription: Loss of appetite; Report Immunity to Registry: Yes; Loss of appetite; snomeddesc ription: Loss of appetite; Report Immunity to Registry: Yes; Not Available [facility] 4 06:58:58 Seizure 04196385 Active 2000 Seizure; snomeddesc ription: Seizure; Report [...] Report Immunity to Registry: Yes; Not Available [facility] 4 06:58:58 Problem Notes None recorded. Procedures Surgical History None recorded. Imaging Results Imaging Date Name Status LastModified by Organization Details LastModified Time 06/04/2024 US, abdomen, complete completed [email or web address] [place], [address], 06/18/2024 11:12:25 07/15/2024 electrocardiogram completed [email or web address] Main Of [address], [address], 07/15/2024 17:12:05 07/17/2024 electrocardiogram completed [email or web address] Main Of [address], [address], 07/17/2024 14:15:04 Procedure Notes None recorded. Medical Equipment None Reported. Allergies Allergen ID Allergen Name Allergen Category Reaction Reaction Severity Criticality Documentation Date Start Date Code Code System Note Provider Name and Address Organization Details Recorded Time 714 Reglan medicatio n Not available Not available Not available 10/31/20232012 9230 RxNorm Comme nt: adver se_ev ent_t ype: 00802 8002; ; Not Available [facility] 4 06:50:47 715 Motrin medicatio n Not available Not available Not available 10/31/20232012 29296 8 RxNorm Comme nt: adver se_ev ent_t ype: 08276 8002; ; Not Available [facility] 4 06:50:47 716 doxycycli ne Not available Not available Not available Not available 10/31/20232017 3640 RxNorm Comme nt: adver se_ev ent_t ype: 55987 8002; ; Not Available [facility] 4 06:50:47 Medications Name Sig Start Date [...] ole 10 mg klaudia Take 1 tablet 3 times a day by oral route for 30 [...] A ORAL ITALO VECES AL D A active Not Available Not Available No t Available nystatin 100,000 unit/mL oral suspensio n 5 cc po qid swish and spit x 14 days active Not Available Not Available No t Available Serostim 6 mg subcutane ous solution RECONSTI TUTE WITH STERILE WATER DIRECTED . INJECT 6 MG UNDER THE SKIN 1 TIME A DAY AT BEDTIME 2024 active Not Available Not Available Not Avai lable acetamino phen 325 mg tablet TOME DOS TABLETAS POR V A ORAL CADA SEIS HORAS CUANDO SEA NECESARI O PARA EL DOLOR-WV LD POR 10 D active Not Available [...] Not Available tamsulosi n 0.4 mg capsule TOME 1 C PSULA POR V A ORAL TODOS LOS D AL ACOSTARS E active Not Available Not Available No t Available linezolid 600 mg tablet TOME 1 [...] Available Liquid Nutrition oral 0 Quantity : 91447; Duration : 30; 0 refill(s ) 09/30 [...] ADMINIST ER 5MLS VIA G-TUBE ONCE DAILY 2024 active Not Available Not Available Not Avai lable chlorhexi dine gluconate 0.12 % mouthwash PLEASE [...] scales; Not Available Not Available Not Available Combigan 0.2 %-0.5 % eye drops ADMINIST ER 1 DROP INTO BOTH EYES 2 TIMES DAILY. active Not Available Not Available No t Available Chest Congestio n Relief 100 mg/5 [...] yordy; Not Available Not Available Not Available buprenorp [...] , injectab le; SU_FULL_ NAME: Cheryl Palomo l; Not Available Not Available Not Available Mytesi [...] active Not Available Not Available Not [facility]ai labradha [facility] 60 mcg (15 mcg x 4)/0.5 [...] active Not Available Not Available Not Available [facility] 60 mcg (15 mcg x 4)/0.5 mL intramusc ular susp. quadriva lent Quantity : ; 0 refill(s ) 2018 active VACCINE_ IND: yes; VACCINE_ NAME: influenz a, injectab le, quadriva lent; SU_FULL_ NAME: Cheryl Palomo l; VIS_DATE : 05:00:00 .0; Not Available Not Available Not Available [facility] Quad 60 mcg (15 mcg x 4)/0.5 [...] Pneumoco ccal conjugat e PCV20, polysacc haride NDQ636 conjugat e, adjuvant , PF; Not Available Not Available Not Available Vitals Date Recorded Body height Heart rate Respiratory rate Body temperature Body mass index (BMI) Body weight Systolic blood pressure Diastolic blood pressure Provider Name and Address Organization Details Last Updated DateTime 4 162.56 cm 89 /min 16 /min 98 [degF] 20.6 kg/m2 34307.0 8 g 123 mm[Hg] 90 mm[Hg] Jerome STRE[address] MD [facility] 4 14:28:38 Date Recorded Body height Provider Name an d Address Organization Details Last Updated DateTime 07/15/[address] MD [facility] 07/15/2024 15:22:29 Date Recorded Body temperature Body mass index (BMI) Body weight Respiratory rate Heart rate Systolic blood pressure Diastolic blood pressure Provider Name and Address Organization Details Last Updated DateTime 4 98.7 [degF] 20.6 kg/m2 40557.0 8 g 20 /min 87 /min 120 mm[Hg] 80 mm[Hg] Cheryl Street MD [address] [facility] [place], [address] 6LYNN MD [facility] 4 15:46:02 Date Recorded Heart rate Body temperature Body weight Systolic blood pressure Diastolic blood pressure Provider Name and Address Organization Details Last Updated DateTime 10/21/2024 98 /min 98.2 [degF] 52097.2 6 g 118 mm[Hg] 97 mm[Hg] Lexis ST[address] MD [facility] 5 12:04:23 Date Recorded Body height Heart rate Respiratory rate Body mass index (BMI) Body weight Systolic blood pressure Diastolic blood pressure Provider Name and Address Organization Details Last Updated DateTime 5 162.56 cm 81 /min 20 /min 24.9 kg/m2 04961.8 9 g 136 mm[Hg] 89 mm[Hg] Cheryl Street MD [address] [place], [address] 6LYNN MD [facility] 5 15:01:34 Date Recorded Body height Provider Name an d Address Organization Details Last Updated DateTime 12/30/[address] MD [facility] 12/30/2024 15:08:38 Date Recorded Heart rate Body mass index (BMI) Body weight Respiratory rate Systolic blood pressure Diastolic blood pressure Provider Name and Address Organization Details Last Updated DateTime 5 92 /min 26.1 kg/m2 38130.0 4 g 16 /min 108 mm[Hg] 83 mm[Hg] Cheryl Street MD [address] [place] [address], [address], L[address]NN [address] MD [facility] 16:33:39 Social History None recorded. Functional Status None recorded. Mental Status None recorded. Family History Nothing Reported Notes:High cholesterol, Resp onse Property: Yes; , Cancer, other unspecified, Response Property: Yes; , Diabetes, Response Property: Yes; Medical History No medical history recorded. Immunizations Vaccine Type Date Status Note Provider Nam e and Address Organization Details Recorded Time Meningococcal MCV4O 9 completed Not Available [facility] 10/31/2023 06:54:49 zoster live 9 completed Not Available [facility] 10/31/2023 06:54:50 Influenza, split virus, quadrivalent, preservative 9 completed Not Available [facility] 10/31/2023 06:54:50 Influenza, split virus, quadrivalent, preservative 8 completed Not Available [facility] 10/31/2023 06:54:50 Influenza, split virus, quadrivalent, preservative 0 completed Not Available [facility] 10/31/2023 06:54:50 Past Encounters Encounter ID Performer Location Encounter Start Date Encounter Closed Date Diagnosis/Indication Diagnosis SNOMED-CT Code Diagnosis ICD10 Code Diagnosis Note [address] MD Main Office [address] [place] [address] 05/25/2023 09:48:40 06/27/2023 09:16:16 Human immunodeficiency virus infection 31857189 B20 HIV. Continue Biktarvy 1 tab po [...] [address] MD Main Office [address] [place] [address] 08/24/2023 09:33:00 08/24/2023 10:46:09 Human immunodeficiency virus infection 44380149 B20 HIV. Continue Biktarvy 1 tab po [...] /Tivicay.s afe sex.labs Septemberlan of care reviewed [address] MD Main Office [address] [place] [address], [place] [address] 11/12/2023 11:34:42 11/16/2023 15:00:47 Human immunodeficiency virus infection 64058225 B20 HIV.Contin ue Biktarvy 1 tab po qd.U=Upt aware of PreP availabili ty.condom use.plan of care reviewed Adult [facility] th examination 909817030 Z00.[address] MD Main Office [address] [place] [address], [place] [address] 11/21/2023 10:59:43 11/23/2023 14:55:[address] MD Main Office [address] [place] [address], [place] [address] 01/14/2024 09:27:39 01/16/2024 13:51:[id number] MD Main Office [address] [place] [address] 01/16/2024 10:24:39 01/16/2024 11:50:10 Human immunodeficiency virus infection 66447314 B20 HIV.Contin ue Biktarvy 1 tab po qd.U=Upt aware of PreP availabili ty.condom use.labs todayplan of care reviewed Candidiasis of mouth 797 37100 B37.0 nystatin 5cc po qid x 14 days. swish and spit.call with any side effects.ba cterial/fu ngal swab obtained. 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 [id number] MD Main Office [address] [place] [address] 02/14/2024 12:00:04 02/14/2024 12:24:19 Human immunodeficiency virus infection 48354738 B20 HIV.Contin ue Biktarvy 1 tab po qd.U=Upt aware of PreP availabili ty.DoxyPEP reviewedco ndom use.labs todayplan of care reviewed Methicilli n resistant Staphylococcus aureus infection 536560649 A49.02 swab culture 01/2024 Candidiasi s of the esophagus 63705031 B37.81 sandy glabratafl uconazole 100mg po qd x 14 dayscall with any side effects. Weight loss 87289744 R63 .4 contributi ng factor sandy, MRSA, HIV among othermight benefit from Serostim.w ill review with himG tube [address] MD Main Office [address] [place] [address] 02/21/2024 11:08:05 02/21/2024 12:09:56 Human immunodeficiency virus infection 82457262 B20 HIV.Contin ue Biktarvy 1 tab po qd.complia nce reviewedU= Upt aware of PreP availabili ty.DoxyPEP reviewedco ndom use.labs todayplan of care reviewed Candidiasi s of the esophagus 24303996 B37.81 sandy glabratato complete fluconazol e 100mg po bid x 14 days: (10mg/ml) 10ml by G tube bidcall with any side effects. Methicilli n resistant Staphylococcus aureus infection 017667125 A49.02 swab culture urr ently on Bactrim oral suspension (200mg- 40mg/5ml) since 02/15-20ml q 12 hrs G tube x 10 days Cachexia a ssociated with AIDS 941698105 B20 R64 weight loss. frail. progressin g.contribu ting factor sandy, MRSA, HIV among other. G tubeSerost im 6mg sq qd will be prescribed with the goal of helping w weight gain, increase muscle mass gain, and increase enduranceh e has visiting nurse who could assist with daily injections . [address] MD Main Office [address] [place] [address] 02/25/2024 10:24:53 02/25/2024 11:09:27 Human immunodeficiency virus infection 75459925 B20 HIV.Contin ue Biktarvy 1 tab po qd.complia nce reviewedU= Ucondom use.labs todayplan of care reviewed Candidiasi s of the esophagus 15909448 B37.81 sandy glabratawi ll continue fluconazol e 200 mg po qd x 14 days: (10mg/ml) 10ml by G tube QD;will on next appointmen t for further tx va suppressio n tx.call with any side effects. Cachexia a ssociated with AIDS 228223129 B20 R64 weight loss. frail. progressin g.approved Serostim 6mg sq qd; awaiting delivery to the office. will be prescribed with the goal of helping w weight gain, increase muscle mass gain, and increase enduranceh e has visiting nurse who could assist with daily injections .ensure tidmegace 625 mg qd. Methicilli n resistant Staphylococcus aureus infection 739692361 A49.02 swab culture 01/2024will complete 10 days of Bactrim oral suspension (200mg- 40mg/5ml) since 02/15-20ml q 12 hrs G tube on 02/27/[address] MD Main Office [address] [place] [address] 03/14/2024 10:24:00 03/14/2024 10:29:25 Cachexia associated with AIDS 737829315 R64 B20 gained 2 pounds. probably improved sandy esophagiti s 2nd to inhaled steroids.S Tart Serostim 6mg s/c qd abdomen. first dose administer ed today. Tolerated well; goalis to increase weight, endurance and muscle massHe will have INSTANT PRINTER OPERATOR and nurse help with daily injections .potential side effects reviewed.t o call with any concernshe will grape picker Megace today, and start it as well(G tube) qd to increase apetitte Human immunodeficiency virus infection 11145763 B20 HIV.Contin ue Biktarvy 1 tab po qd.complia nce reviewed Candidiasi s of the esophagus 94587175 B37.81 sandy glabratawi ll continue 2 more weeks of fluconazol e 200 mg po qd x 14 days: (10mg/ml) 10ml by G tube QD;might benefit from qw suppressio n tx.call with any side effects. [address] MD Main Office [address] [place] [address] 04/18/2024 09:52:00 04/18/2024 11:19:01 Cachexia associated with AIDS [id number] R64 B20 124 lbs. gained weightcont inue Serostim 6mg s/c qd abdomen. goalis to increase weight, endurance and muscle masscontin ue Megace G tube qdCNA and nurse helping with compliance and tx.potenti al side effects reviewed.t o call with any concerns Human immunodeficiency virus infection 49157980 B20 HIV.Contin ue Biktarvy 1 tab po qd.complia nce reviewedla bs today Candidiasi s of the esophagus B37.81 sandy glabratawi ll continue fluconazol e 200 (10ml) mg G tube qw for suppressio n tx.call with any side effects. Aspiration pneumonia [id number] 054253 J69.0 get discharge summaryon antibiotic ;eat standing or sitting; and not sleeping/[place] [address] MD Main Office [address] [place] [address] 05/20/2024 10:17:53 05/20/2024 12:44:49 Cachexia associated with AIDS [id number] R64 B20 continue Serostim 6mg s/c qd abdomen. goal is to increase weight, endurance and muscle masscontin ue Megace G tube qd 5cc qdCNA and nurse helping with compliance and tx.potenti al side effects reviewed.t o call with any concerns Human immunodeficiency virus infection 81516530 B20 HIV.Contin ue Biktarvy 1 tab po qd.padmini tala bs today Candidiasi s of the esophagus 85566817 B37.81 sandy glabrataho ld fluconazol e for nowSTART 1 tab po bid x 21 says for esophageal sandy glabrata.c all with any side effects. [address] MD Main Office [address] [place] [address] 06/18/2024 10:10:09 06/18/2024 11:12:33 Cachexia associated with AIDS 436887312 R64 B20 continue Serostim 6mg s/c qd abdomen. goal is to increase weight, endurance and muscle massCNA and nurse helping with compliance and tx.megace on holdpotent ial side effects reviewed.t o call with any concerns Human immunodeficiency virus infection 31731313 B20 HIV.Contin ue Biktarvy 1 tab po qd.padmini tala bs today Inflammato ry disease of liver 945298424 K75.9 Suspect 2nd to concomitan t medication s. ongoingdo not re-start fluconazol e nor megacenega tive infectious and non-infect ious workupto call or ER if jaundice, abd pain, n/v/d marce mendy History of calculus of kidney 381715936 Z87.442 u/s 05/[address] scan 02/2024hydr ation Aspiration pneumonia 422 555780 J69.0 s/p aspiration on CT AngioNPO per instructio n given to him in hospital; nutrition by G tubes/p (ceftriaxo ne,Azithro ,Flagyl while in Hospital;d ischarged on azithro and cefpodoxim e x 3 days which he completed. leg elevationa void sedating meds as much as possible Deep venou s thrombosis of lower extremity [id number] I82.409 left lower extremity doppler showed DVT of gastrocnem ius vein;on tx w w Eliquis bid . Pulmonary embolism [address] Angio was positive for Acute lobar PEs/p heparin; ongoing Eliquis bidmed list reviewed.n o drug use for years. not on maintenanc e tx.denies current ETOH use. [address] MD Main Office [address] [place] [address] 07/15/2024 15:10:10 07/15/2024 15:45:30 Cachexia associated with AIDS 543970028 R64 B20 continue Serostim 6mg s/c qd abdomen. goal is to increase weight, endurance and muscle masspotent ial side effects reviewed.t o call with any concerns Human immunodeficiency virus infection 79368096 B20 HIV.Contin ue Biktarvy 1 tab po qd.complia nce reviewedla bs Candidiasi s of the esophagus 7.81 on clotrimazo le. swish and spit qd Medication monitoring [address] MD Main Office [address] [place] [address] 10/21/2024 12:22:54 10/21/2024 16:48:51 Cachexia associated with AIDS 541432135 R64 B20 improvedco ntinue Serostim 6mg s/c qd abdomen. goal is to increase weight, endurance and muscle masspotent ial side effects reviewed.m ay start decreasing dose in 1-2 months if further weight gainon Boost protein shakesto call with any concerns Human immunodeficiency virus infection 67966620 B20 HIV.Contin ue Biktarvy 1 tab po qd.complia nce reviewedla bs Candidiasi s of the esophagus 781 on clotrimazo le. swish and spit qd/BID PRN [address] MD Main Office [address] [place] [address] 11/25/2024 11:48:55 11/25/2024 14:20:54 Cachexia associated with AIDS 908060977 R64 B20 improvedco ntinue Serostim 6mg s/c [...] with any concerns Human immunodeficiency virus infection 91922652 B20 HIV.Contin ue Biktarvy 1 tab po qd.complia nce reviewedla bs Candidiasi s of the esophagus 73951338 B37.81 off/on; recurrento n clotrimazo le. swish and spit qd/BID PRN for suppressio n Insomnia 122360057 G47.0 0 benadryl capsules requested by patient forinsomni a and itchiness as needed.cor rect use reviewed. [address] MD Main Office [address] [place] [address] 12/30/2024 15:04:38 12/31/2024 09:52:40 Cachexia associated with AIDS 668385883 R64 B20 improvedco ntinue Serostim 6mg s/c [...] with any concerns Human immunodeficiency virus infection 92510180 B20 HIV.Contin ue Biktarvy 1 tab po qd.padmini copelande reviewedla bs Candidiasi s of the esophagus 33317717 B37.81 off/on; recurrento n clotrimazo le. swish and spit /BID/TID PRN for suppressio n Health Concerns Section Related Observation LastModified by Organization Detai ls LastModified Time None Recorded Concern Status LastModified by Organization Details LastModified Time None Recorded Advance Directives Directive None Recorded Payers Encounter Date Sequence Insurance Name Policy Number Policy Perry Covered Member ID Perry Member ID Guarantor Name 06/18/2024 1 [facility] - DOS ON OR AFTER 2022 - MEDICARE [place]VANTAGE [place] (MEDICARE REPLACEMENT/AD VANTAGE - PPO) [facility] Juan David [id number] Benjamin Juan David 07/15/2024 1 [facility] [employer] - DOS ON OR AFTER 2022 - [place]AC[place]/AD VANTAGE - PPO) [facility] Juan David [id number] Benjamin Fall 10/21/2024 1 [employer] [employer] - DOS ON OR AFTER 2022 - [place]AC[place]/AD VANTAGE - PPO) Benjamin Fall [id number] [facility] 11/25/2024 1 [employer] [employer] - DOS ON OR AFTER 2022 - [place]/AD VANTAGE - PPO) Benjamin Fall [id number] [facility] 12/30/2024 1 [employer] [employer] - DOS ON OR AFTER 2022 - [place]ARE [place]AC[place]/AD VANTAGE - PPO) Benjamin Fall [id number] [facility] Notes Date Note Type Note Provider Name and Address Organization Details Recorded Time 06/18/2024 text/html HIVOn Biktarvy 1 tab po qd.reports daily compliance. denies missing dose.resolved thrush. hx recurrence. fluconazole and voriconazole on hold. Pt reports was hospitalized at [facility] 06/10/24-06/13/24 ( got to ER on [...] VL nondetetcted01/2024 HIV VL nondetcetd;eGFR=76;AST /ALT wnl;11/2023 UB0=297; HIV VLnondetceted; no infections.01/2022 AX8=940; HIV VL nondetceted; eGFR>60; ALt/AST wnl; syphilis neg; GC/chlamydia neg Cheryl Street MD [address] [place] [address], [phone], [address] MD [facility] 06/18/2024 18:19:56 07/15/2024 text/html HIVOn Biktarvy 1 tab po qd.reports daily compliance. denies missing dose.thrush on/off: recurrence. on clotrimazole daily .stable weight 120lbshe says he is eating more and apetitte has improvedfeels strongergetting serostim dailyno hospitalizations since he was last seenmed list reviewed.On Eliquis and enoxaparin. recent PE/DVT.VL nondetected03/2024 HIV VL nondetctedHIV VL nondetetcted01/2024 HIV VL nondetcetd;eGFR=76;AST /ALT wnl;11/2023 ZC2=205; HIV VLnondetceted; no infections. Cheryl Street MD [address] [place] [address], [phone], [address] MD [facility] 07/15/2024 15:47:48 10/21/2024 text/html HIVOn Biktarvy [...] notify site start date and confirm medication. [employer] in room with his consent. Cheryl Street MD [address] [place] [address], [phone], [facility] [address] MD [facility] 10/21/2024 14:34:28 11/25/2024 text/html HIVOn Biktarvy 1 [...] cyst removal in recent weeks. outpatient/day procedure. [employer] in room with his consent. 07/2025 HIV VL nondetceted; ALt/AST wnl; eGFR>60; LR5=[address] MD [address] [place], [phone], [facility] [address] MD [facility] 11/26/2024 15:09:42 12/30/2024 text/html HIVOn Biktarvy 1 tab po qd.reports daily compliance. denies missing dose.thrush. gets on/off and using clotrimazole to treat/suppress.gaining weight: 120lbs ---145lbs --152 lbsno aspirationgetting serostim daily for cachexia,no side effects.might get G tube removed in February 2025.no hospitalizations since he was last seenmed list reviewed. [employer] [facility]. came in today with a a friendVL nondetceted;07/2025 HIV VL nondetceted; ALt/AST wnl; eGFR>60; HG7=[address] MD [address] [place] [address], [phone], [address] MD [facility] 12/30/2024 16:39:33
--- OUTSIDE RECORDS SUMMARY | 2025-01-09 09:58 | XMS_ITS | Data Portability ---
Author Organization [facility] [place] [facility] [employer] Address [address] [place] [phone] Care Team Providers Care Marriage Therapist Name Role Phone HIM [facility] OTHER [facility] OTHER [phone] Assessment No assessment recorded. Plan of Treatment [...] Not available Not available Not available 07/08/2024 60014 RxNorm Not Available [facility] - production 4 [...] SNOMED-CT Code Diagnosis ICD10 Code Diagnosis Note 42485 ERLINDA HOLLIDAY MD Main - [facility] [address] [place] [address] 03/06/2024 16:50:44 03/07/2024 17:38:50 Lethargy [id number] R53.83 Evaluation in the field was performed by my online merchant colleague. As noted above, I provided real-time [...] He is afebrile. Per discussion with the online merchant, the patient looked lethargic, walked with an [...] n. The patient was transferre d to [facility] for further evaluation and treatment. His PCP was informed of the transfer to the ED. Primary care, consider__ _ Dispositio n:[facility] Health Concerns Section Related Observation LastModified by Organization Jazzy ls LastModified Time None Recorded Concern Status LastModified by Organization Details LastModified Time None Recorded Advance Directives Directive None Recorded Payers Encounter Date Sequence Insurance Name Policy Number Policy Perry Covered Member ID Perry Member ID Guarantor Name 03/06/2024 1 [facility] - DOS ON OR AFTER 2022 - DUAL ELIGIBLE - RETIREMENT OPTIONS AND ONE [employer] (MEDICARE REPLACEMENT/ADV ANTAGE - HMO) Benjamin Juan David [id number] [facility] Juan David Notes Date Note [...] ................. ................. ................. ................. ................. ..... Marketing Developer Note From Francisco Ley: Dispatched to above [...] focus on current situation, poor affect, lethargic. [facility] contacted, spoke with Dr. Holliday, advised of patient complaints and exam findings. [facility] agreed further evaluation in the ER is necessary for this patient. Patient agreed to this. Patients neighbor who assists patient arrived to check on him. She reports this doesn't seem like his normal mentation but cannot be sure. 911 called. [place] [facility] responded. Verbal report given to [place] Marketing Developer. [place] online merchant took over patient care. Nj8 clear. [employer]. ................. ................. ................. ................. ................. ................. ................. ................. ..... Disposition: Shahzad HOLLIDAY MD [address] [facility],[address], [place], [address], [place] BLOCK 03/06/2024 18:02:19
--- OUTSIDE RECORDS SUMMARY | 2025-01-09 09:59 | XMS_ITS | Data Portability ---
Author Organization [facility], Main Office Address [address] [facility], [address] [place] [address] Care Team Providers Care Bus Mechanic Name Role Phone BRENDAN HOLLINGSWORTH - 2ND [...] and Address Organization Details Recorded Time Asthenia [id number] Active 2022 MAURO DUFFY NP [address] [facility], [address], [place], [address], [facility] 3 12:08:07 Moderate protein-calori e malnutrition (weight for age 60-74 percent of standard) 273600751 Active 2022 MAURO DUFFY NP [address] [facility], [address], [place], [address], [facility] 3 12:08:23 Pneumonia 823460704 Active 2022 MAURO DUFFY NP [address] [facility], [address], [place], [address], [facility] 3 12:08:31 Pleural effusion 10708648 Active 2022 MAURO DUFFY NP [address] [facility], [address], [place], [address], [facility] 3 12:08:59 Hypertensive disorder 59303073 Active 2022 MAURO DUFFY NP [address], [address], [place], [address], [facility] 3 12:09:07 Human immunodeficien cy virus infection 49351538 Active 2022 MAURO DUFFY NP [address], [address], [place], [address], [facility] 3 12:09:12 Viral hepatitis C 46376063 Active 2022 MAURO DUFFY NP [address], [address], [place], [address], [facility] 3 12:09:28 Mixed anxiety and depressive disorder 221676599 Active 2022 MAURO DUFFY NP [address], [address], [place], [address], [facility] 3 12:09:40 Asthma 358055188 Active 2022 MAURO DUFFY NP [address], [address], [place], [address], [facility] 3 12:09:56 Acute dermatitis 52508588 Active 2022 MAURO DUFFY NP [address], [address], [place], [address], [facility] 3 12:14:27 Migraine 48476425 Active 2022 MAURO DUFFY NP [address], [address], [place], [address], [facility] 3 12:25:08 Non-traumatic rhabdomyolysis 707633983 Active 2022 Leilani Romeo MD [address], [address], [place], [address], [facility] 3 10:08:19 Moderate persistent asthma 234775082 Active 2022 Leilani Romeo MD [address], [address], [place], [address], [facility] 3 10:18:10 Insomnia 512163114 Active 2022 Leilani Romeo MD [address], [address], [place], [address], [facility] 3 10:19:09 Harmful pattern of use of multiple substances 233181278 Active 2022 Leilani Romeo MD [address], [address], [place], [address], [facility] 3 10:19:11 Adult failure to thrive syndrome 711347165 Active 2022 Maryjane Glover NP [address], [address], [place], [address], [facility] 3 13:27:15 Anemia 431496587 Active 2022 Maryjane Glover NP [address], [address], [place], [address], [facility] 3 13:30:43 Dysphagia 71652069 Active 2022 Leilani Romeo MD [address], [address], [place], [address], [facility] 3 20:51:38 Gastroesophage al reflux disease without esophagitis 837096098 Active 2022 Leilani Romeo MD [address], [address], [place], [address], [facility] 3 20:54:24 Chronic pain 26503475 Active 2022 Leilani Romeo MD [address], [address], [place], [address], [facility] 3 20:55:56 Problem Notes None recorded. Medical Equipment None Reported. Allergies Allergen ID Allergen Name Allergen Category Reaction Reaction Severity Criticality Documentation Date Start Date Code Code System Note Provider Name and Address Organization Details Recorded Time 99592 codeine medicatio n Not available Not available Not available 01/17/2023 0750 RxNorm rash MAURO DUFFY NP [address], [address], [place], [address], [facility] 3 12:06:48 36184 Levaquin medicatio n Not available Not available Not available 01/17/2023 72740 2 RxNorm sharan DUFFY NP [address] [facility], [address], [place], [address], [facility] 3 12:06:58 18661 Reglan medicatio n Not available Not available Not available 01/17/2023 9230 RxNorm rash MAURO DUFFY NP [address] [facility], [address], [place], [address], [facility] 3 12:07:11 92374 ibuprofen medicatio n Not available Not available Not available 01/17/2023 5640 RxNorm reflu x MAURO DUFFY NP [address] [facility], [address], [place], [address], [facility] 3 12:07:28 10626 Product containin g penicilli n (product) medicatio n Not available Not available Not available 01/17/2023 53117 8001 SNOMED rash MAURO DUFFY NP [address] [facility], [address], [place], [address], [facility] 3 12:07:45 66884 Ultram medicatio n Not available Not available Not available 01/17/2023 79654 6 RxNorm N/V MAURO DUFFY NP [address] [facility], [address], [place], [address], [facility] 3 12:07:56 54148 acetamino phen medicatio n other Not available unabletoasse 08/03/2023 161 RxNorm unkno wn Maryjane Glover NP [address] [facility], [address], [place], [address], [facility] 3 13:00:59 42311 POLLEN [employer] environme nt,medica tion other Not available unabletoasse 08/03/2023 33040 6 RxNorm unkno wn Maryjane Glover NP [address] [facility], [address], [place], [address], [place] [facility] 3 13:01:38 Medications Name Sig Start Date Stop Date [...] Details Last Updated DateTime 3 167.64 cm 66089.5 4 g 17.4 kg/m2 86 /min 18 /min 97.6 [degF] 91 % 91 % 115 mm[Hg] 68 mm[Hg] Maryjane Glover NP [address], [address] , [facility] 3 11:08:33 Date Recorded Body height Body weight Heart rate Respiratory rate Body temperature Oxygen saturation Oxygen saturation in Arterial blood by Pulse oximetry Systolic blood pressure Diastolic blood pressure Provider Name and Address Organization Details Last Updated DateTime 3 167.64 cm 17062.5 4 g 72 /min 18 /min 97.1 [degF] 96 % 96 % 115 mm[Hg] 68 mm[Hg] Maryjane Glover NP [address], [address] , [facility] 3 13:10:32 Date Recorded Body height Body mass index (BMI) Body weight Heart rate Systolic blood pressure Diastolic blood pressure Provider Name and Address Organization Details Last Updated DateTime 3 167.64 cm 17.3 kg/m2 68460.3 8 g 74 /min 133 mm[Hg] 85 mm[Hg] Dilia Gonzalez [address] [facility], [address], [place], [address], [facility] 3 13:13:45 Date Recorded Body height Body weight Heart rate Respiratory rate Body temperature Oxygen saturation Oxygen saturation in Arterial blood by Pulse oximetry Systolic blood pressure Diastolic blood pressure Provider Name and Address Organization Details Last Updated DateTime 4 167.64 cm 58489.5 4 g 88 /min 18 /min 97.6 [degF] 96 % 96 % 133 mm[Hg] 85 mm[Hg] Maryjane Glover NP [address] [facility], [address], [place], [address], [facility] 4 19:10:48 Date Recorded Body height Heart rate Respiratory rate Body temperature Oxygen saturation Oxygen saturation in Arterial blood by Pulse oximetry Systolic blood pressure Diastolic blood pressure Provider Name and Address Organization Details Last Updated DateTime 4 167.64 cm 84 /min 18 /min 97.5 [degF] 98 % 98 % 133 mm[Hg] 85 mm[Hg] MAURO DUFFY NP [address] [facility], [address], [place], [address], [facility] 4 08:57:54 Social History Question Answer Notes LastModified by Organizat ion Details LastModified Time Tobacco Smoking Status Never Smoker MAURO DUFFY NP [address] [facility], [address], [place], [address], [facility] 01/17/2023 11:35:26 Do You Have An Advance Directive? Yes [email or web address] Information not available 01/17/2023 What Is Your Level Of Alcohol Consumption? None [email or web address] Information not available 01/17/2023 What Is Your Code Status? Full Code [email or web address] Information not available 01/17/2023 Where Do You Live? Apartment With Elevator, Family Near By, Helpful [email or web address] Information not available 01/17/2023 What Was The Date Of Your Most Recent Tobacco Screening? 08/03/2023 Information not available 08/03/2023 Do You Use Any Illicit Or Recreational Drugs? No Noted Past Use Cocaine Information not available 08/03/2023 Has Tobacco Cessation Counseling Been Provided? No [email or web address] Information not available 01/17/2023 Do You Or Have You Ever Used Any Other Forms Of Tobacco Or Nicotine? No [email or web address] Information not available 01/17/2023 Sex: Unknown Functional Status None recorded. Mental Status None recorded. Family History Relationship Description Onset Age of this Age Resolved Age Notes LastModified by Organization Details LastModified Time Mother Malignant neoplasm of lung [email or web address] Not available 2022 11:34:21 Medical History No medical history recorded. Immunizations Vaccine Type Date Status Note Provider Nam e and Address Organization Details Recorded Time COVID-19, mRNA, LNP-S, bivalent, PF, 50 mcg/0.5 mL or 25mcg/0.25 mL dose 2 completed [facility] 09/11/2023 13:44:56 COVID-19, mRNA, LNP-S, bivalent, PF, 50 mcg/0.5 mL or 25mcg/0.25 mL dose 3 completed [facility] 09/11/2023 13:45:39 Pneumococcal conjugate PCV20, polysaccharide [id number] conjugate, adjuvant, PF 3 completed [facility] 09/11/2023 13:46:16 Influenza, adjuvanted, quadrivalent, PF 3 completed [facility] 09/11/2023 13:46:36 Influenza, adjuvanted, quadrivalent, PF 2 completed Asiayahaira Andre [facility] 10/24/2023 13:13:32 Past Encounters Encounter ID Performer Location Encounter Start Date Encounter Closed Date Diagnosis/Indication Diagnosis SNOMED-CT Code Diagnosis ICD10 Code Diagnosis Note [id number] MAURO DUFFY NP [address] [address] 01/17/2023 11:16:19 01/22/2023 12:34:21 Pleural effusion 73269959 J90 and empyema, resp. failures/p L chest tube, intubation Clinically improved.M onitor VS, sats, LS, CP status closely for decompensa tion Pneumonia 079515497 J18. 9 Treated with IV zosyn in hosp.Clini lesly improved.A s above, monitlr VS, sats, LS, CP status closely Asthenia 98405843 R53.1 PT OT eval and tx. Moderate protein-calorie malnutrition (weight for age 60-74 percent of standard) 853412858 E44.0 Started supplement s in hosp.Refer to group controller here.Seen by ST in hosp, diet changed to chopped/ad vanced consistenc yOn reg. diet here, doing well. Refer to rehab to try to get bedside FEES testing Hypertensive disorder 38 583934 I10 On norvasc 5 mg dailyPropr anolol ER held in hosp., instructed to resume 03/09, unclear as to why held or if used for something else?Monio r VS, adjust meds prn Human immunodeficiency virus infection 72041586 B20 Continue biktarvy Mixed anxi ety and depressive disorder 054453681 F41.8 Continue home meds:clona zepam 1 mg daily? risperdal 2 mg HSremeron 60 mg HSMonitor mood, behaviors for changePsyc h eval prn Asthma 293936701 J45.90 9 Continue flovent bidMonitor resp. status for change Acute dermatitis 2404556 6 L30.9 bilat. groin, fungalstar t nystatin cream or powder bid x 14 days or until clearmonit or Migraine 52801120 G43.90 9 Continue home meds:Celeb monica 200 mg bidgabapen tin 600 mg tidibuprof en 800 mg q8 hr prnultram 50 daily prn? clonazepam 1 mg daily? risperdal 2 mg HS? propranolo l Er 120 mg daily - held in hosp - cont. to hold here, resume date of 03/09 [facility] [id number] Kenia Michaels MD [address] [address] 01/19/2023 07:22:18 01/22/2023 15:16:30 Pneumonia 490815408 J15.8 antibiotic s completeds /p empyema, respirator y failure, intubation will monitor Asthenia 65893256 R53.1 PT/OTwill monitor Human immunodeficiency virus infection 58211598 B20 Biktarvy 50-200-25 dailyfu I.D. Essential hypertension 98326580 I10 amlodipine 5 mg dailywill monitor Mixed anxi ety and depressive disorder 954353051 F41.8 gabapentin 600 mg tidmirtaza pine 60 mg at hsrisperid one 2 mg at hsclonazep am 1 mg dailywill monitor Gastroesop hageal reflux disease without esophagitis 386190198 K21.9 pantoprazo le 40 mg dailywill monitor Chronic pain 83639711 G8 9.29 gabapentin 600 mg tidhospita l discharge notes include:ce lecoxib 200 m bid, ibuprofen 800 mg q8h prn, tramadol 50 mg daily prnwill monitor and consider if needed [id number] Panchito Morales NP [facility] on [address] [place] [address] 06/30/2023 08:20:37 07/03/2023 11:44:52 Human immunodeficiency virus infection 14932599 B20 06/30/23mo nitorID consult as indicated- biktarvy (bictegrav ir, emtricitab ine & tenofovir alafenamid e) 50-200-25m g QD Hypertensive disorder 38 005503 I10 06/30/23mo nitorcards FU PRNavoid beta barb with HX of cocaine abuse-amlo dipine 5mg QD Mixed anxi ety and depressive disorder 623498713 F41.8 06/30/23mo nitorpsych consult PRN-risper idone 3mg QHS Viral hepatitis C 876384 07 B19.20 06/30/23mo nitor [id number] Leilani Romeo MD [facility] on [address] [place] [address] 07/02/2023 17:00:01 07/12/2023 14:37:46 Human immunodeficiency virus infection 82551165 B20 Non-detect able on last checkConti nue biktarvy (bictegrav ir, emtricitab ine & tenofovir alafenamid e) 50-200-25m g QDF/U with ID as planned. Hypertensive disorder 38 254325 I10 BP good since here.Sam nue amlodipine 5 mg qdMonitor BP and labs. Mixed anxi ety and depressive disorder 590373786 F41.8 Mood stable.Con tinue risperidon e 3 mg qhs, mirtazapin e 30 mg qhs, and clonazepam 1 mg qd.Monitor mood.Psych consult prn. Viral hepatitis C 467317 07 B18.2 Unclear hx.LFTs WNL.F/U as outpt. Acute chest pain 1436879 01 R07.89 Per cardio not ACS.Monito r sxs.F/U with cardio prn. Non-trauma tic rhabdomyolysis 049487734 M62.82 CPK trended down inpt.No need to monitor further. Moderate p ersistent asthma 714132008 J45.40 No SOB or hypoxia, but with junky cough as above.Cont inue Advair 230/21 two puffs BID, Flovent 2 puffs BID, and albuterol/ budesonide 2 puffs q 6 hrs prn.Monito r resp status. 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 Cough 83735686 R05.8 Sounds junky, but pt says it feels like tickle in throat. Maybe post nasal drip.Lungs clear, but still could be early PNA.Will start Robitussin DM 10 ml q 4 hrs prn and get CXR tomorrow.M onitor resp status. Insomnia 110778486 G47.0 9 Will try melatonin 5 mg qhs.Monito r sleep patterns. [id number] MIGUEL BROWN [facility] on [address] [place] [address] 07/05/2023 08:16:20 07/12/2023 16:01:31 Mixed anxiety and depressive disorder 477420641 F41.8 07/05: his mood is stablecont inue:clona zepam 1 mg dailyrispe ridone 3 mg daily at bedtime.Mi rtazapine 30 mg at bedtime daily.tu tonin 5 mg at bedtime daily Cough 77854999 R05.8 07/05: non productive upper airway congested coughThere is no SOB. LS are clearCXR completed; no active pulmonary infiltrate s or pleural effusions seen.Robit ussin DM 10 ml q 4 hrs prn- will scheduled for a few days, does not look like he requested prn.Monito r resp status. Harmful pa ttern of use of multiple substances 275400444 F19.10 Most often cocaine, but sometimes other things.Con tinue SUDs counseling while here and encourage abstinence and outpt f/u. [id number] MIGUEL BROWN [facility] on [address] [place] [address] 07/06/2023 09:35:29 07/12/2023 16:16:45 Mixed anxiety and depressive disorder 138401870 F41.8 continue:c lonazepam 1 mg dailyrispe ridone 3 mg daily at bedtime.Mi rtazapine 30 mg at bedtime daily.tu tonin 5 mg at bedtime dailyfollo w up with outpatient PCP. Cough 52116994 R05.8 CXR on 07/03/23 negative for any acute process.Ro bitussin DM 10 ml q 4 hrs prnfollow up with outpatient PCP. Acute dermatitis 0088708 6 L30.9 continueny statin cream BID as needed until clearedfol low up with outpatient PCP. Asthma 870209008 J45.90 9 Advair 230/21 two puffs BID,Floven t 2 puffs BID, andalbuter ol/budeson kentrell 2 puffs q 6 hrs prn.follow up with outpatient PCP. Human immunodeficiency virus infection 39110286 B20 Continue biktarvy (bictegrav ir, emtricitab ine & tenofovir alafenamid e) 50-200-25m g QD Hypertensive disorder 38 356971 I10 Continue amlodipine 5 mg qdfollow up outpatient Insomnia 581340547 G47.0 9 melatonin 5 mg at bedtime Migraine 25068731 G43.90 9 Continue home meds: Celebrex 200 mg bid gabapentin 600 mg tid ibuprofen 800 mg q8 hr prn ultram 50 daily prn clonazepam 1 mg daily risperdal 3 mg HS follow up with PCP Viral hepatitis C 345430 07 B18.2 follow labs outpatient follow up with outpatient pcp. [id number] Maryjane Glover NP [address] [address] 08/03/2023 12:58:35 08/08/2023 10:07:33 Human immunodeficiency virus infection 85053621 B20 ID consult prnbiktarv y (bictegrav ir, emtricitab ine & tenofovir alafenamid e) 50-200-25m g QD Asthenia 19573522 R53.1 PT/OT treat and evalwill monitor Essential hypertension 14630241 I10 amlodipine 5 mg dailywill monitor Mixed anxi ety and depressive disorder 219408444 F41.8 gabapentin 600 mg tidmirtaza pine 60 mg at hsrisperid one 3 mg at [facility] am 1 mg dailypsych prnwill monitor Gastroesop hageal reflux disease without esophagitis 439138040 K21.9 With recent workup in hosp and PEG placed.use G tube for feedings/m edswill monitor Chronic pain 42726963 G8 9.29 gabapentin 600 mg tidtramado l 50 mg prn dailymulti ple allergies notedwill monitor and consider if needed Harmful pa ttern of use of multiple substances 252038629 F19.10 Most often cocaine per hx with overdoses notedConti nue counseling while here and encourage abstinence and outpt f/u. Asthma 010146638 J45.90 9 advair 2 puff bidalbuter ol 2 puffs q 6 hours prn wheezingMo nitor resp. status for change Viral hepatitis C 098539 07 B18.2 fu with labscurren tly stable liver enzymesmon itor Moderate protein-calorie malnutrition (weight for age 60-74 percent of standard) 686178107 E44.0 now on PEG tube with feedings at 60cc/hrRef er to group controller here.Seen by in hosp, unclear why he has dysphagia and difficulty eating with workup including EGD at [facility] recentlysp eech eval and treat here to see if he can take po intakemoni tor Anemia 979954000 D64.9 ferrous gluconate 324 dailymonit or cbc weekly Adult fail ure to thrive syndrome 142207703 R62.7 g tube feedings and meds through g tube at 60cc/hrfai lure to thrive with supplement s in pastspeech to eval and treat, consider reintroduc ing foods when ableweight s weeklymoni tor Insomnia 676682798 G47.0 9 benedryl 25 mg qhsmonitor [id number] Leilani Romeo MD [address] [place] [address] 08/06/2023 16:28:34 08/08/2023 11:16:44 Adult failure to thrive syndrome 121011483 R62.7 With marked wt. loss over past few months.Con tinue Jevity 1.0 or 1.2 tanya/ml at 60 ml/hr.Stil l unable to swallow, unknown reason.Con momo [employer] interventi ons to hopefully enable him to eat again.Cait gradner wts and labs. Moderate protein-calorie malnutrition (weight for age 60-74 percent of standard) 874875119 E44.0 As above. Human immunodeficiency virus infection 43960583 B20 Last labs show zero viral load.Sam nue Biktarvy (bictegrav ir, emtricitab ine & tenofovir alafenamid e) 50-200-25m g QDF/U with ID as planned. Asthenia 86117006 R53.1 Very deconditio armen.Needs PT/OT for strengthen ing, balance, gait training, safety and function.C ontinue fall precaution s.Monitor for safety. Essential hypertension 65287068 I10 BP running low since here, should improve as nutritiona l status improves.C ontinue amlodipine 5 mg qdMonitor BP and labs. Gastroesop hageal reflux disease without esophagitis 862486492 K21.9 On no meds.I wonder if starting a PPI may help with throat pain?Monit or Chronic pain 34094411 G8 9.29 No c/o tonight.Co ntinue gabapentin 600 mg TID and tramadol 50 mg qd prnMonitor sxs. Asthma 479729164 J45.30 Asthma meds transcribe d incorrectl y on admission here.Was not put on Advair, but rather only albuterol/ budesonide prn.Will restart Advair 230/21 mcg two puffs BIDMonitor resp. status Anemia 441142475 D64.89 Not currently anemic.Con tinue ferrous gluconate 324 mg qdMonitor labs Mixed anxi ety and depressive disorder 498722479 F41.8 Mood stable.Con tinue risperidon e 3 mg qhs, mirtazapin e 60 mg qhs, and clonazepam 1 mg qd.Monitor mood.Psych consult prn. Viral hepatitis C 272522 07 B18.2 Unclear hx.LFTs WNL.F/U as outpt. Harmful pa ttern of use of multiple substances 704990895 F19.10 Most often cocaine, but sometimes other things.Mehrdad barr counseling and encourage abstinence and outpt f/u. Dysphagia 54788082 R13.1 9 Unknown etiology.C ontinue G-tube feeding as above.Cons ider ENT consult. [id number] Maryjane Glover NP [address] [address] 08/16/2023 12:26:03 08/22/2023 11:29:11 Adult failure to thrive syndrome 616018082 R62.7 With marked wt. loss over past few months.Con tinueJevit y 1.5 tanya/ml at 60 ml/hr. group controller following and will adjust as neededStil l unable to swallow, unknown reason.Mehrdad barr [employer] interventi ons to hopefully enable him to eat again.Cait tor wts and labs. Dysphagia 31680935 R13.1 9 Unknown etiology.C ontinue G-tube feeding as above.Cons ider ENT consult. Moderate protein-calorie malnutrition (weight for age 60-74 percent of standard) 891919081 E44.0 As above. Human immunodeficiency virus infection 38762155 B20 Last labs show zero viral load.Sam nueBiktarv y (bictegrav ir, emtricitab ine & tenofovir alafenamid e) 50-200-25m g QDF/U with ID as planned. Asthenia 55398897 R53.1 Very deconditio armen.Needs PT/OT for strengthen ing, balance, gait training, safety and function.C ontinue fall precaution s.Monitor for safety. Essential hypertension 60853018 I10 BP running low since here, should improve as nutritiona l status improves.a mlodipine 5 mg qdMonitor BP and labs. Gastroesop hageal reflux disease without esophagitis 630349772 K21.9 no meds.Monit or Chronic pain 33366559 G8 9.29 has mild headache todayConti nuegabapen tin 600 mg TIDtramado l 50 mg qd prnMonitor sxs. Asthma 475032565 J45.30 Asthma meds transcribe d incorrectl y on admission here.albut maddi/budes onide prn.Advair 230/21 mcg two puffs BIDMonitor resp. status Anemia 488025941 D64.89 Not currently anemic.juan carlos scales order cbc and bmp weekly [id number] gluconate 324 mg qdMonitor labs Mixed anxi ety and depressive disorder 764440827 F41.8 Mood stable.ris peridone 3 mg qhsmirtaza pine 60 mg qhs,clonaz epam 1 mg qd.Monitor mood.Psych consult prn. Viral hepatitis C 514621 07 B18.2 Unclear hx.LFTs WNL.F/U as outpt. Harmful pa ttern of use of multiple substances 326769487 F19.10 Most often cocaine, but sometimes other things.Con momo counseling and encourage abstinence and outpt f/u. [id number] Maryjane Glover NP [address] [address] 08/22/2023 11:06:38 08/28/2023 14:23:57 Adult failure to thrive syndrome 588511187 R62.7 With marked wt. loss over past few months.Con tinueJevit y 1.2 tanya/ml at 67ml/hr. group controller following and will adjust as neededStil l unable to swallow, unknown reason.Mehrdad barr [employer] interventi ons to hopefully enable him to eat again.Cait tor wts and labs.08/22 group controller to assess if bolus feedings can be attempted for homefamily /pt needs g tube care/teach ing for ? dc homemonito r Asthenia 05663938 R53.1 Very deconditio armen, improving every week with therapyNee ds PT/OT for strengthen ing, balance, gait training, safety and function.C ontinue fall precaution s.Monitor for safety. Dysphagia [id number] R13.1 9 Unknown etiology.C ontinue G-tube feeding as above.Cons ider ENT consult. Anemia 027712769 D64.89 Not currently anemic.juan carlos scales order cbc and bmp weekly [id number] gluconate 324 mg qdMonitor labs Moderate protein-calorie malnutrition (weight for age 60-74 percent of standard) 590113051 E44.0 As above. Human immunodeficiency virus infection 93626726 B20 ContinueBi ktarvy (bictegrav ir, emtricitab ine & tenofovir alafenamid e) 50-200-25m g QDF/U with ID as planned. Essential hypertension 97212191 I10 BP now improving as nutritiona l status improves.1 10s-130s /60scontam lodipine 5 mg qdMonitor BP and labs. Gastroesop hageal reflux disease without esophagitis 237091819 K21.9 no meds.Monit or Chronic pain 33812994 G8 9.29 headache resolvedCo ntinuegaba pentin 600 mg TID, no pain todaytrama dol 50 mg qd prnMonitor sxs. Asthma 769496369 J45.30 Asthma meds transcribe d incorrectl y on admission here.albut maddi/budes onide prn.Advair 230/21 mcg two puffs BIDMonitor resp. status Mixed anxi ety and depressive disorder 672208873 F41.8 Mood stable and ding wellrisper idone 3 mg qhsmirtaza pine 60 mg qhs,clonaz epam 1 mg qd.Monitor mood.Psych consult prn. [id number] Maryjane Glover NP [address] [address] 08/29/2023 08:14:48 08/30/2023 19:42:34 Adult failure to thrive syndrome [id number] R62.7 With marked wt. loss over past few months.Con tinueJevit y 1.2 tanya/ml at 67ml/hr. group controller following and will adjust as neededStil l unable to swallow, unknown reason.per speech eval: no eating or drinkingMo nitor wts and labs.08/22 group controller to assess if bolus feedings can be attempted for homefamily /pt needs g tube care/teach ing for ? dc homemonito r110/30 awaiting group controller to calculate gtube feedings and start Asthenia 76229746 R53.1 Very deconditio armen, improving every week with therapyNee ds PT/OT for strengthen ing, balance, gait training, safety and function.C ontinue fall precaution s.Monitor for safety. Dysphagia 87075560 R13.1 9 Unknown etiology.C ontinue G-tube feeding as above.Cons ider ENT consult. Anemia 930271018 D64.89 Not currently anemic.juan carlos l order cbc and bmp prn, labs stableferr ous gluconate 324 mg qdMonitor labs Moderate protein-calorie malnutrition (weight for age 60-74 percent of standard) 614464512 E44.0 As above. Human immunodeficiency virus infection 07445148 B20 ContinueBi ktarvy (bictegrav ir, emtricitab ine & tenofovir alafenamid e) 50-200-25m g QDF/U with ID as planned. Essential hypertension 36020044 I10 BP now improving as nutritiona l status improves.1 conta mlodipine 5 mg qdMonitor BP and labs. Gastroesop hageal reflux disease without esophagitis 753804943 K21.9 no meds.Monit or Chronic pain 87751853 G8 9.29 headache resolvedCo ntinuegaba pentin 600 mg TID, no pain todaytrama dol 50 mg qd prnMonitor sxs. Asthma 539327232 J45.30 Asthma meds transcribe d incorrectl y on admission here.albut maddi/budes onide prn.Advair 230/21 mcg two puffs BIDMonitor resp. status Mixed anxi ety and depressive disorder 932492139 F41.8 Mood stable and ding wellrisper idone 3 mg qhsmirtaza pine 60 mg qhs,clonaz epam 1 mg qd.Monitor mood.Psych consult prn. Neck pain 03123430 M54.2 incidental neck pain, states slept on it wrongnsg giving tyl, tramadol and gabapentin reposition neckmonito r for relief [id number] Dilia Hutchinson [address] [address] 09/07/2023 05:15:43 09/13/2023 10:39:11 Adult failure to thrive syndrome 415582689 R62.7 With marked wt. loss over past few months.Con tinueJevit y 1.2 tanya/ml at 67ml/hr. group controller following and will adjust as neededStil l unable to swallow, unknown reason.Con momo SPORTS COMPLEX ATTENDANT interventi ons to hopefully enable him to eat again.Cait tor wts and labs.recei deborah education on gt feeds, SW working on VNA set up for [facility] GT site daily with NS and dry. apply 2x2 to sitemonito r Asthenia 57190867 R53.1 Very deconditio armen, improving every week with therapyNee ds PT/OT for strengthen ing, balance, gait training, safety and function.C ontinue fall precaution s.Monitor for safety. Dysphagia 82216447 R13.1 9 Unknown etiology.C ontinue G-tube feeding as above.Cons ider ENT consult. Anemia 077026877 D64.89 Not currently anemic.juan carlos l order cbc and bmp weekly d1rhelvdx gluconate 324 mg qdMonitor labs Moderate protein-calorie malnutrition (weight for age 60-74 percent of standard) 965938004 E44.0 As above. Human immunodeficiency virus infection 71904058 B20 ContinueBi ktarvy (bictegrav ir, emtricitab ine & tenofovir alafenamid e) 50-200-25m g QDF/U with ID as planned. Essential hypertension 23326378 I10 BP now improving as nutritiona l status improves.1 10s-130s /60scontam lodipine 5 mg qdMonitor BP and labs. Gastroesop hageal reflux disease without esophagitis 895996923 K21.9 no meds.Monit or Chronic pain 46357229 G8 9.29 headache resolvedCo ntinuegaba pentin 600 mg TID, no pain todaytrama dol 50 mg qd prnMonitor sxs. Asthma 977368525 J45.30 Asthma meds transcribe d incorrectl y on admission here.albut maddi/budes onide prn.Advair 230/21 mcg two puffs BIDMonitor resp. status Mixed anxi ety and depressive disorder 747762832 F41.8 Mood stable and ding wellrisper idone 3 mg qhsmirtaza pine 60 mg qhs,clonaz epam 1 mg qd.Monitor mood.Psych consult prn. [id number] Maryjane Glover NP [address] [phone] 09/12/2023 18:08:08 09/14/2023 11:17:17 Adult failure to thrive syndrome 298926542 R62.7 With marked wt. loss over past [...] dry. apply 2x2 to sitemonito r Asthenia 50366743 R53.1 Very deconditio armen, improving every week with therapyNee ds PT/OT for strengthen ing, balance, gait training, safety and function.C ontinue fall precaution s.Monitor for safety. Dysphagia 19488732 R13.1 9 Unknown etiology.C ontinue G-tube bolus feeding as above.FEES test on Sundayneed s cxr to rule out pna from foods and drinks in room despite recommenda tionConsid er ENT consult. Moderate protein-calorie malnutrition (weight for age 60-74 percent of standard) 255266055 E44.0 As above. Human immunodeficiency virus infection 12333484 B20 ContinueBi ktarvy (bictegrav ir, emtricitab ine & tenofovir alafenamid e) 50-200-25m g QDF/U with ID as planned. Essential hypertension 30407841 I10 BP now improving as nutritiona l status improves.1 10s-130s /60scontam lodipine 5 mg qdMonitor BP and labs. Asthma 763430987 J45.30 no wheezing noted on exam, stablealbu terol/bude sonide prn.Advair 230/21 mcg two puffs BIDMonitor resp. status Mixed anxi ety and depressive disorder 316614970 F41.8 Mood stable and ding wellrisper idone 3 mg qhsmirtaza pine 60 mg qhs,clonaz epam 1 mg qd.Monitor mood.Psych consult prn. [id number] MAURO DUFFY NP [address] [phone] 09/18/2023 08:57:08 09/25/2023 10:49:09 Adult failure to thrive syndrome 149272060 R62.7 With marked wt. loss over past few months due to difficulty swallowing .G tube placed 07/30/23 at [facility].Contin ue osmolite 1.2 tanya/ml 410 cc qid bolus tube feedings upon d/c home.Seen by SPORTS COMPLEX ATTENDANT - now on puree diet with thin liquids - may continue at homeContin ue to monitor weights and intake at home Asthenia 24787560 R53.1 Improved, meeting rehab goals for d/c home today with support of services.C ontinue fall precaution s.Monitor for safety as outpt. Dysphagia 11788920 R13.1 9 Unknown etiology.S ee above.[facility] bol[facility]No w on pureed diet, thin liquidsMon itor intake, s/s aspiration as outpt. Moderate protein-calorie malnutrition (weight for age 60-74 percent of standard) 369174200 E44.0 As above. Human immunodeficiency virus infection 33441051 B20 ContinueBi ktarvy (bictegrav ir, emtricitab ine & tenofovir alafenamid e) 50-200-25m g QDF/U with ID as planned. Essential hypertension 28775365 I10 continue amlodipine 5 mg qdMonitor BP as outpt. Asthma 710454542 J45.30 no wheezing noted on exam, stablecont inue Advair 230/21 mcg two puffs BID and albuterol/ budesonide prn.Monito r resp. status as outpt. Mixed anxi ety and depressive disorder 561898068 F41.8 Mood stable and doing wellContin ue home medsrisper idone 3 mg qhsmirtaza pine 60 mg qhsclonaze david 1 mg qdMonitor mood, behaviors as outpt. Chronic pain 91690963 G8 9.29 continue gabapentin 600 mg tid, ultram 50 mg qd prnmonitor asoutpt. Anemia 302647261 D64.89 remains on daily FeMonitor CBC,s/s active [...] & [place] ([place]/ADV ANTAGE - PPO) [facility] [id number] [facility] 08/29/2023 1 [facility] [facility] - DOS ON OR AFTER 2022 - [place]ICARE [place]ANTAGE [place] ([place] REPLACEMENT/ADV ANTAGE - PPO) [facility] Fall [id number] [facility] Fall 09/07/2023 1 [facility] [facility] - DOS ON OR AFTER 2022 - [place]IC[place]AGE [place] ([place] RE[place]AC[place]/ADV ANTAGE - PPO) [facility] Fall [id number] [facility] 09/12/2023 1 [facility] - DOS ON OR AFTER 2022 - [place]AGE [place]PL[place]/ADV ANTAGE - PPO) [facility] Fall [id number] [facility] 09/18/2023 1 [facility] - DOS ON OR AFTER 2022 - [place]ICARE [place]ANTAGE [place] ([place] REPL[place]EMENT/ADV ANTAGE - PPO) [facility] Fall [id number] [facility] Notes Date Note Type Note Provider Name [...] other concerns. Note: He was admitted to [facility] ED for similar concerns earlier this month [...] orally. MOLST: Full code signed 01/17/23 Maryjane Glover, LADAN [address] [facility], [address], [place], [address], [facility] 08/22/2023 11:24:08 08/29/2023 text/html Patient seen for an 30 routine rounding visit. Past medical history significant for HIV, history of hep C, depression, asthma, history lung abscess 2020, fall, several overdoses noted in hx. dysphagia seen for difficulty swallowing ultimately diagnosed with failure to thrive and PEG tube placed. Benjamin was admitted to [facility] ED for difficulty swallowing and underwent EGD [...] from hospital to rehab. While here at [facility]: Pt is 107.6 lbs and this is [...] disconnect his feedings without difficulty here. Awaiting group controller to calculate bolus feedings and start them [...] code signed 01/17/23 Maryjane Glover NP [address] [facility], [address], [place], [address], [facility] 08/29/2023 13:39:07 09/07/2023 text/html Patient seen for [...] other concerns. Note: He was admitted to [facility] ED for similar concerns earlier this month [...] Full code signed 01/17/23 Dilia lloyd [address] [facility], [address], [place], [address], [facility] 09/07/2023 13:21:25 09/12/2023 text/html Patient seen for [...] code signed 01/17/23 Maryjane Glover NP [address] [facility] [facility], [address], [place], [address], [facility] 09/12/2023 19:33:00 09/18/2023 text/html Benjamin is seen t heidy for discharge. He is going home today with support of services. He is a 58 yo man admitted to [facility] 08/02/23 from [facility] for continued care and rehab after a hospitalization related to malnutrition and FTT.He presented to [facility] 07/27 reporting throat pain and the inability to swallow.Swallowing issues problematic prior to this presentation, had EGD with Dr. Dodson 07/17, results c/w mild candidiasis normal stomach and duodenum. He was also seen by SPORTS COMPLEX ATTENDANT, diet changed to NND1 and nectar thick liquid. Due to ongoing swallowing issues at home, he returned to [facility] ER.A g-tube was placed on 07/30, cause of dysphagia unclear. Kept NPO, and sent here for rehab. While here, Benjamin has done well.Worked with PT/OT, meeting goals for d/c home.Also worked with SPORTS COMPLEX ATTENDANT and group controller - now tolerating puree diet with thin [...] also, possibly inadvertently). MAURO DUFFY NP [address] [facility], [address], [place], [address], [facility] 09/18/2023 09:47:21
--- OUTSIDE RECORDS SUMMARY | 2025-01-09 09:59 | XMS_ITS | Clinical Summary ---
Author Organization [facility] Address [address] [place] [address] Care Team Providers Care V Belt Skiver Name Role Phone Zora Arce PA-C Primary Care Provider [phone] Source Comments PLEASE NOTE, if this patient [...] EC tabletIndications:H IV (human immunodeficiency virus infection) ([facility]) Take 1 Tab by mouth [...] NUTRITION) liquidIndications:H IV (human immunodeficiency virus infection) ([facility]) Take 1 Can by mouth [...] as needed for allergies. 30 Tab 6 016 Active naphazoline-phenira mine (NAPHCON-A) 0.025-0.3 % ophthalmic solutionIndications :Allergic conjunctivitis, bilateral Place 1 Drop into both eyes 4 (four) times daily as needed for red or irritated eye. 15 mL 6 016 Active sodium chloride (OCEAN) 0.65 % nasal sprayIndications:As thma, intermittent, uncomplicated ([facility]) Place 1 Trimble into the nostril(s) as needed for congestion. 60 mL 6 016 Active omeprazole (PRILOSEC) [address] capsuleIndications: Dyspepsia Take 1 Cap by mouth every morning before breakfast. Do not crush or chew. 30 Cap 3 016 Active albuterol sulfate hfa (PROAIR HFA) 90 mcg/actuation inhalerIndications: Asthma, intermittent, uncomplicated ([facility]) Inhale 2 Puffs into the lungs every 4 (four) hours as needed for shortness of breath. Int asthma 18 g 6 016 Active Active Problems Problem Noted Date Diagnosed Date Asthma, mild intermittent ([facility]) 05/06/2015 Fibromyalgia 01/27/2015 Generalized anxiety disorder 01/27/2015 Seizure disorder ([facility]) 01/27/2015 Major depressive disorder, r ecurrent, severe without psychotic features ([facility]) 01/27/2015 Overview (01/27/2015): Has therapist at [facility] HIV (human immunodeficiency virus infection) ( [facility]) 01/27/2015 Chronic back pain 01/27/2015 Hepatitis C antibody test positive 01/27/2015 Overview (01/27/2015): Sp treatment per Dr Street Immunizations Immunization Administration Dates Next Due INFLUENZA, SEASONAL, INJECTABLE 07/09/2017 PNEUMOCOCCAL POLYSACCHARIDE PPV23 (Pneumovax 23) 03/19/2013 TDAP 04/20/2017 Td (adult), 5 Lf [...] Plan of Treatment Not on file [place] Subscriber Plan / Payer ( fective 2015-Present) Name:Benjamin Fall Relation to Subscriber:Self Name:Benjamin Fall Payer ID:[id number] Group ID:Not on file Type:Medicaid Address: [place] [address] [place] [address] DENTAL Care Teams V Belt Skiver Relationship Specialty Start Date End Date Zora Arce PA-C [address] [place] [address] PCP - General 11/05/18
== END 2025-01-09 09:49 | disposition home or self-care (01) ==
LOC: HO.ENCR 09:23
PROVIDERS: PCP Student in an Organized Health Care Education/Training Program; Visit Provider Student in an Organized Health Care Education/Training Program
DX: M81.0 Age-related osteoporosis without current pathological fracture (principal); E27.8 Other specified disorders of adrenal gland; E29.1 Testicular hypofunction
CPT/HCPCS: 99213

== ENCOUNTER 2025-01-20 09:47 | Outpatient (AMB) | payer OTHER, SELFPAY ==
--- NOTE | 2025-01-20 10:08 | AM.OFFVISNUR ---
Intake Visit Reasons: Evenity #4 Allergies Seasonal Allergies Allergy (Intermediate, Verified 01/09/25 09:27) Eye Drainage codeine [From Tylenol-Codeine #3] Allergy (Mild, Verified 01/09/25 09:27) Rash levofloxacin [From Levaquin] Allergy (Mild, Verified 01/09/25 09:27) Rash metoclopramide [From Reglan] Allergy (Mild, Verified 01/09/25 09:27) Rash acetaminophen [Tylenol-Codeine #3] Allergy (Unknown, Verified 01/09/25 09:27) Rash Penicillins [PENICILLINS] Allergy (Unknown, Verified 01/09/25 09:27) Rash ibuprofen [From Motrin] Adverse Reaction (Unknown, Verified 01/09/25 09:27) Reflux Office Meds romosozumab-aqqg 210 mg/2.34 mL(105 mg/1.17 mL x2)subcutaneous syringe Performing Provider: Ritu Scott MD Performing Location: [facility] [place] Endocrinology Administered by: Na Croft RN on 01/20/25 10:08 Dose Route Admin Location Dispensed Lot Number Expiration Date [facility] [employer] 210 mg subcut bilateral upper arms 2.34 mL [id number] 01/07/27 80563-003-08 [facility] Comments: Pt accompanied by DIDACTIC INSTRUCTOR, she declined interpreter translator services since she is able to interpret for pt. Pt declined any adverse reactions from previous injection. Pt tolerated injection well. Pt schedule in 4 weeks for 5th injection. Assessment & Plan Assessment & Plan Orders: Orders AMB Romosozumab Injection Patient Supplied Today M81.0 - Age-related osteoporosis without current pathological fracture Medications: New romosozumab-aqqg 210 mg (2.34 mL) subcut ONCE 2.34 mL 0RF M81.0 - Age-related osteoporosis without current pathological fracture Coding
--- OUTSIDE RECORDS SUMMARY | 2025-01-20 10:31 | XMS_ITS | Data Portability ---
Author Organization LYNN WHITE MD [facility], Main Office Address [address] [place] [address] Assessment No assessment recorded. Plan of Treatment [...] [email or web address] m 2023 024 cheryl Main Office, [address] [place] [address], [address], 07/15/2024 15:47:38 Medication Orders clotrima zole 10 [address] [id number], [address] [place], [address], 12/30/2024 16:32:25 Biktarvy 50 mg-200 mg-[address] [facility], [address] [place], [address], 12/30/2024 16:32:25 clotrima zole 10 mg [address] [facility], [address] [place], [address], 11/25/2024 13:20:54 Benadryl 25 mg capsule [address] [facility], [address] [place], [address], 11/25/2024 13:20:55 Biktarvy 50 mg-200 mg-[address] [facility], [address] [place], [address], 11/25/2024 13:20:54 clotrima zole 10 mg [address] [facility], [address] [place], [address], 10/21/2024 14:29:45 Biktarvy 50 mg-200 mg-25 mg tablet 2024 [facility]25 [facility] [address] [place], [address], 10/21/2024 14:30:45 Patient TargetsNo targets recorded. Patient Instructions Encounter Date Encounter Id Patient Instructions Last Modified By Organization Details Last Modified Time 10/21/2024 [id number] Clotrimazole Oral Lozenge (CLOTRIMAZOLE LOZENGE - MUCOUS MEMBRANE (ORAL)) cmartorell Not available 10/21/2024 14:29:44 Reason for Referral None Reported. Results Created Date Observation Date Name Description Value Unit Range Abnormal Flag Note LastModifiedBy Organization Detail LastModifiedTime 06/18/2006/04/2024 US, abdom en, compl ete No observ ation record ed. [email or web address] [place], [address], 06/18/2024 11:12:25 07/15/20 24 07/15/2024 elect rocar diogr am No observ ation record ed. [email or web address] Main Office [address] [place], [address], 07/15/2024 17:12:05 07/17/20 elect rocar diogr am No observ ation record ed. [email or web address] Main Office [address] [place], [address], 07/17/2024 14:15:04 Result Notes None recorded. Problems Name Problem SNOMED Code Status Onset Date Resolution Date Notes Provider Name and Address Organization Details Recorded Time Asthma 149040779 Active 2006 Asthma; snomeddesc ription: Asthma; Report Immunity to Registry: Yes; Asthma; Report Immunity to Registry: Yes; ReasonDate : 10/13/2019 ; ; Start Date : 10/13/2019 Asthma; snomeddesc ription: Asthma; Report Immunity to Registry: Yes; Not Available [facility] 4 06:58:53 Male hypogonad ism 31691232 Active 2012 Male hypogonadi sm; snomeddesc ription: Male hypogonadi sm; Report Immunity to Registry: Yes; Not Available [facility] 4 06:58:53 Diarrhea 87642166 Active 2006 Diarrhea; snomeddesc ription: Diarrhea; Report Immunity to Registry: Yes; Diarrhea, unspecifie d; snomeddesc ription: Diarrhea; Report Immunity to Registry: Yes; Not Available [facility] 4 06:58:53 Substance abuse 07667667 Active 2006 Substance abuse; snomeddesc ription: Substance abuse; Report Immunity to Registry: Yes; Notes: opiate/suad jolene/benzo ; Not Available [facility] 4 06:58:53 Human immunodef iciency virus infection 52323331 Active 1991 Human immunodefi ciency virus [HIV] disease; snomeddesc ription: Human immunodefi ciency virus infection; Report Immunity to Registry: Yes; Human immunodefi ciency virus infection; snomeddesc ription: Human immunodefi ciency virus infection; Report Immunity to Registry: Yes; Not Available [facility] 4 06:58:53 Steatotic liver disease 755527088 Active 2006 Steatosis of liver; snomeddesc ription: Steatosis of liver; Report Immunity to Registry: Yes; Notes: u/s 2021; Fatty (change of) liver, not elsewhere classified ; snomeddesc ription: Steatosis of liver; Report Immunity to Registry: Yes; Notes: u/s 2021; Not Available [facility] 4 06:58:53 Herpesvir us infection 68639151 Active 2009 Herpesvira l infection, unspecifie d; snomeddesc ription: Herpes simplex; Report Immunity to Registry: Yes; Notes: HSV 1 pos serology; HSV 2 neg serology; Not Available [facility] 4 06:58:53 Fibromyos itis 26461023 Active 2006 Myalgia and myositis, unspecifie d; snomeddesc ription: Fibromyalg ia; Report Immunity to Registry: Yes; Notes: Chronic pain multiple/c hronic back pain; Not Available [facility] 4 06:58:53 Herpes simplex 07348386 Active 2009 Herpes simplex; snomeddesc ription: Herpes simplex; Report Immunity to Registry: Yes; Notes: HSV 1 pos serology; HSV 2 neg serology; Not Available [facility] 4 06:58:54 Kidney stone 24869418 Active 2001 Calculus of kidney; snomeddesc ription: Kidney stone; Report Immunity to Registry: Yes; Kidney stone; snomeddesc ription: Kidney stone; Report Immunity to Registry: Yes; Not Available [facility] 4 06:58:54 History of calculus of kidney 016884779 Active 2001 History of calculus of kidney; snomeddesc ription: History of calculus of kidney; Report Immunity to Registry: Yes; Not Available [facility] 4 06:58:54 Type B viral hepatitis 19890813 Active 2006 Type B viral hepatitis; snomeddesc ription: Type B viral hepatitis; Report Immunity to Registry: Yes; Notes: core ab pos; s ag neg; s ab neg HBV vL nondetecte d 2016; 2017; Not Available [facility] 4 06:58:54 Hyperplas ia of prostate 532343848 Active 2014 Hyperplasi a of prostate, unspecifie d, without urinary obstructio n and other lower urinary symptoms (LUTS); snomeddesc ription: Hyperplasi a of prostate; Report Immunity to Registry: Yes; Hyperplas ia of prostate; snomeddesc ription: Hyperplasi a of prostate; Report Immunity to Registry: Yes; Not Available [facility] 4 06:58:54 Anxiety 70013803 Active 1996 Anxiety; snomeddesc ription: Anxiety; Report Immunity to Registry: Yes; Not Available [facility] 4 06:58:54 Testicula r hypofunct ion 228533783 Active 2012 Other testicular hypofuncti on; snomeddesc ription: Male hypogonadi sm; Report Immunity to Registry: Yes; Not Available [facility] 4 06:58:54 Seasonal allergic rhinitis 146470286 Active 2012 Other seasonal allergic rhinitis; snomeddesc ription: Seasonal allergy; Report Immunity to Registry: Yes; Notes: hx nasal congestion ; Not Available [facility] 4 06:58:54 Onychomyc osis due to dermatoph yte 077823742 Active 2017 Tinea unguium; snomeddesc ription: Onychomyco sis; Report Immunity to Registry: Yes; Notes: feet digits; Not Available [facility] 4 06:58:55 Sleep apnea 14115774 Active 1999 Sleep apnea; snomeddesc ription: Sleep apnea; Report Immunity to Registry: Yes; Unspecifi ed sleep apnea; snomeddesc ription: Sleep apnea; Report Immunity to Registry: Yes; Not Available [facility] 4 06:58:55 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 72177995 Active 2006 Other psychoacti ve substance abuse, uncomplica lucho; snomeddesc ription: Substance abuse; Report Immunity to Registry: Yes; Notes: opiate/suad jolene/benzo ; Not Available [facility] 4 06:58:55 Viral hepatitis B without hepatic coma 140174754 Active 2006 Unspecifie d viral hepatitis B without hepatic coma; snomeddesc ription: Type B viral hepatitis; Report Immunity to Registry: Yes; Notes: core ab pos; s ag neg; s ab neg HBV vL nondetecte d 2016; 2017; Not Available [facility] 4 06:58:55 Blood chemistry outside reference range 186245642 Active 2012 Other specified abnormal findings of blood chemistry; snomeddesc ription: Decreased testostero ne level; Report Immunity to Registry: Yes; Notes: hypogoandi sm; Not Available [facility] 4 06:58:55 Arthritis 9318245 Active 1998 Arthritis; snomeddesc ription: Arthritis; Report Immunity to Registry: Yes; Notes: Osteoatrth ris multiple; Not Available [facility] 4 06:58:55 History of urinary stone 230898665 Active 2001 Personal history of urinary calculi; snomeddesc ription: History of calculus of kidney; Report Immunity to Registry: Yes; Not Available [facility] 4 06:58:56 Fibromyal mika 900890402 Active 2006 Fibromyalg ia; snomeddesc ription: Fibromyalg ia; Report Immunity to Registry: Yes; Notes: Chronic pain multiple/c hronic back pain; Not Available [facility] 4 06:58:56 Lyme disease 07789604 Active 2017 Lyme disease; Report Immunity to Registry: Yes; Notes: tx cefuroxime x14 d (hx all Doxy); Not Available [facility] 4 06:58:56 Headache 67731214 Active 2008 Headache; snomeddesc ription: Headache; Report Immunity to Registry: Yes; Notes: migraine; Headache; snomeddesc ription: Headache; Report Immunity to Registry: Yes; Notes: migraine; Not Available [facility] 4 06:58:56 Hypertens marj disorder 27208262 Active 2017 Hypertensi ve disorder; snomeddesc ription: Hypertensi ve disorder; Report Immunity to Registry: Yes; Not Available [facility] 4 06:58:56 Arthropat hy 544709503 Active 1998 Arthropath y, unspecifie d, site unspecifie d; snomeddesc ription: Arthritis; Report Immunity to Registry: Yes; Notes: Osteoatrth ris multiple; Not Available [facility] 4 06:58:56 Essential hypertens ion 24079872 Active 2017 Essential (primary) hypertensi on; snomeddesc ription: Hypertensi ve disorder; Report Immunity to Registry: Yes; Not Available [facility] 4 06:58:57 Testoster one level below reference range 052155582 Active 2012 Decreased testostero ne level; snomeddesc ription: Decreased testostero ne level; Report Immunity to Registry: Yes; Notes: hypogoandi sm; Not Available [facility] 4 06:58:57 Insomnia 479918083 Active 1996 Insomnia; Report Immunity to Registry: Yes; Not Available [facility] 4 06:58:57 Anxiety state 995397151 Active 1996 Anxiety state, unspecifie d; snomeddesc ription: Anxiety; Report Immunity to Registry: Yes; Not Available [facility] 4 06:58:57 Onychomyc osis 263342231 Active 2017 Onychomyco sis; snomeddesc ription: Onychomyco sis; Report Immunity to Registry: Yes; Notes: feet digits; Not Available [facility] 4 06:58:57 Chronic hepatitis C 644582420 Active 2006 Chronic hepatitis C without mention [...] neg 2015;2017; 12/2021 F2 ; Not Available [facility] 4 06:58:57 Depressiv e disorder 96611737 Active 1996 Depressive disorder, not elsewhere classified ; snomeddesc ription: Depressive disorder; Report Immunity to Registry: Yes; Depressiv e disorder; snomeddesc ription: Depressive disorder; Report Immunity to Registry: Yes; Not Available [facility] 4 06:58:58 Seasonal allergy 387320682 Active 2012 Seasonal allergy; snomeddesc ription: Seasonal allergy; Report Immunity to Registry: Yes; Notes: hx nasal congestion ; Not Available [facility] 4 06:58:58 Loss of appetite 53255053 Active 2012 Anorexia; snomeddesc ription: Loss of appetite; Report Immunity to Registry: Yes; Loss of appetite; snomeddesc ription: Loss of appetite; Report Immunity to Registry: Yes; Not Available [facility] 4 06:58:58 Seizure 89225165 Active 2000 Seizure; snomeddesc ription: Seizure; Report [...] Report Immunity to Registry: Yes; Not Available [facility] 4 06:58:58 Problem Notes None recorded. Procedures Surgical History None recorded. Imaging Results Imaging Date Name Status LastModified by Organization Details LastModified Time 06/04/2024 US, abdomen, complete completed [email or web address] [place], [address], 06/18/2024 11:12:25 07/15/2024 electrocardiogram completed [email or web address] Main Of [address], [address], 07/15/2024 17:12:05 07/17/2024 electrocardiogram completed [email or web address] Main Of [address], [address], 07/17/2024 14:15:04 Procedure Notes None recorded. Medical Equipment None Reported. Allergies Allergen ID Allergen Name Allergen Category Reaction Reaction Severity Criticality Documentation Date Start Date Code Code System Note Provider Name and Address Organization Details Recorded Time 714 Reglan medicatio n Not available Not available Not available 10/31/20232012 9230 RxNorm Comme nt: adver se_ev ent_t ype: 19519 8002; ; Not Available [facility] 4 06:50:47 715 Motrin medicatio n Not available Not available Not available 10/31/20232012 40294 8 RxNorm Comme nt: adver se_ev ent_t ype: 42182 8002; ; Not Available [facility] 4 06:50:47 716 doxycycli ne Not available Not available Not available Not available 10/31/20232017 3640 RxNorm Comme nt: adver se_ev ent_t ype: 50502 8002; ; Not Available [facility] 4 06:50:47 Medications Name Sig Start Date [...] t Available clotrimaz ole 10 mg klaudia TAKE 1 TABLET 3 TIMES A DAY BY ORAL ROUTE FOR 30 [...] HORAS CUANDO SEA NECESARI O PARA EL DOLOR-[place] LD POR 10 D active Not Available Not Available No t Available prednison e 10 mg tablet TAKE 1 TABLET VIA FEEDING TUBE EVERY DAY active Not Available Not Available No t Available gabapenti n 600 mg tablet TOME 1 TABLETA POR [...] acid (vitamin C) 250 mg tablet TOME BAHMAN TABLETA POR V A ORAL ONCE DAILY active Not Available Not Available [...] Available Liquid Nutrition oral 0 Quantity : 68616; Duration : 30; 0 refill(s ) 09/30 [...] HFA 90 mcg/actua tion aerosol inhaler INHALE DANDO DOS SOPLIDOS CADA SEIS HORAS CUANDO SEA NECESARI O [...] NAME: Meningoc occal MCV4O; SU_FULL_ NAME: Cheryl Taylorsusan scales; VIS_DATE : 14:17:37 .0; Not Available Not Available Not Available Prevnar 13 (PF) 0.5 mL intramusc ular syringe - Quantity : ; Duration : 30; 0 refill(s ) 12/31 completed Duration : 30; VACCINE_ IND: yes; VACCINE_ NAME: Pneumoco ccal conjugat e PCV 13; SU_FULL_ NAME: Stacia scales, Cheryl; Not Available Not Available Not Available Robitussi [...] Not Available Not Available Not Available Afluria 4351-2052 45 mcg (15 mcg x 3)/0.5 mL [...] Not Available Not Available No t Available [facility] 60 mcg (15 mcg x 4)/0.5 mL [...] active Not Available Not Available Not Available [facility] 60 mcg (15 mcg x 4)/0.5 mL intramusc ular susp. quadriva lent Quantity : ; 0 refill(s ) 2018 active VACCINE_ IND: yes; VACCINE_ NAME: influenz a, injectab le, quadriva lent; SU_FULL_ NAME: Cheryl Palomo l; VIS_DATE : 05:00:00 .0; Not Available Not Available Not Available [facility] 60 mcg (15 mcg x 4)/0.5 mL intramusc ular susp. quadriva lent Quantity : ; 0 refill(s ) 2019 active VACCINE_ IND: yes; VACCINE_ NAME: influenz a, injectab le, quadriva lent; SU_FULL_ NAME: Cheryl Palomo l; VIS_DATE : 14:37:48 .0; Not Available Not Available Not Available Prevnar 20 (PF) 0.5 mL intramusc ular syringe - Quantity : ; 0 refill(s ) 2022 active VACCINE_ IND: yes; VACCINE_ NAME: Pneumoco ccal conjugat e PCV20, polysacc haride [id number] conjugat e, adjuvant , PF; Not Available Not Available Not Available Vitals Date Recorded Body height Heart rate Respiratory rate Body temperature Body mass index (BMI) Body weight Systolic blood pressure Diastolic blood pressure Provider Name and Address Organization Details Last Updated DateTime 4 162.56 cm 89 /min 16 /min 98 [degF] 20.6 kg/m2 68243.0 8 g 123 mm[Hg] 90 mm[Hg] Jerome [address] MD [facility] 4 14:28:38 Date Recorded Body height Provider Name an d Address Organization Details Last Updated DateTime 07/15/2024 [address] [facility] 07/15/2024 15:22:29 Date Recorded Body temperature Body mass index (BMI) Body weight Respiratory rate Heart rate Systolic blood pressure Diastolic blood pressure Provider Name and Address Organization Details Last Updated DateTime 4 98.7 [degF] 20.6 kg/m2 89032.0 8 g 20 /min 87 /min 120 mm[Hg] 80 mm[Hg] Cheryl Street MD [address] [facility] [place], [address] [address] [facility] 4 15:46:02 Date Recorded Heart rate Body temperature Body weight Systolic blood pressure Diastolic blood pressure Provider Name and Address Organization Details Last Updated DateTime 10/21/2024 98 /min 98.2 [degF] 19743.2 6 g 118 mm[Hg] 97 mm[Hg] Lexis [address] MD [facility] 5 12:04:23 Date Recorded Body height Heart rate Respiratory rate Body mass index (BMI) Body weight Systolic blood pressure Diastolic blood pressure Provider Name and Address Organization Details Last Updated DateTime 5 162.56 cm 81 /min 20 /min 24.9 kg/m2 34992.8 9 g 136 mm[Hg] 89 mm[Hg] Cheryl Street MD [address] [facility] [place], [address] [address] [facility] 5 15:01:34 Date Recorded Body height Provider Name an d Address Organization Details Last Updated DateTime 12/30/2024 162[address] [facility] 12/30/2024 15:08:38 Date Recorded Heart rate Body mass index (BMI) Body weight Respiratory rate Systolic blood pressure Diastolic blood pressure Provider Name and Address Organization Details Last Updated DateTime 92 /min 26.1 kg/m2 48020.0 4 g 16 /min 108 mm[Hg] 83 mm[Hg] Cheryl Street MD [address] [place] [address], [address], [address] [facility] 16:33:39 Social History None recorded. Functional Status None recorded. Mental Status None recorded. Family History Nothing Reported Notes:High cholesterol, Resp onse Property: Yes; , Cancer, other unspecified, Response Property: Yes; , Diabetes, Response Property: Yes; Medical History No medical history recorded. Immunizations Vaccine Type Date Status Note Provider Nam e and Address Organization Details Recorded Time Meningococcal MCV4O 9 completed Not Available [facility] 10/31/2023 06:54:49 zoster live 9 completed Not Available [facility] 10/31/2023 06:54:50 Influenza, split virus, quadrivalent, preservative 9 completed Not Available [facility] 10/31/2023 06:54:50 Influenza, split virus, quadrivalent, preservative 8 completed Not Available [facility] 10/31/2023 06:54:50 Influenza, split virus, quadrivalent, preservative 0 completed Not Available [facility] 10/31/2023 06:54:50 Past Encounters Encounter ID Performer Location Encounter Start Date Encounter Closed Date Diagnosis/Indication Diagnosis SNOMED-CT Code Diagnosis ICD10 Code Diagnosis Note [address] MD Main Office [address] [place] [address], [place] [address] 05/25/2023 09:48:40 06/27/2023 09:16:16 Human immunodeficiency virus infection 61548113 B20 HIV. Continue Biktarvy 1 tab po [...] [address] MD Main Office [address] [place] [address] 08/24/2023 09:33:00 08/24/2023 10:46:09 Human immunodeficiency virus infection 03381334 B20 HIV. Continue Biktarvy 1 tab po [...] /Tivicay.s afe sex.labs Septemberlan of care reviewed [address] MD Main Office [address] [place] [address] 11/12/2023 11:34:42 11/16/2023 15:00:47 Human immunodeficiency virus infection 06438983 B20 HIV.Contin ue Biktarvy 1 tab po qd.U=Upt aware of PreP availabili ty.condom use.plan of care reviewed Adult [facility] examination 812420993 Z00.[address] MD Main Office [address] [place] [address] 11/21/2023 10:59:43 11/23/2023 14:55:[address] MD Main Office [address] [place] [address] 01/14/2024 09:27:39 01/16/2024 13:51:[address] MD Main Office [address] [place] [address] 01/16/2024 10:24:39 01/16/2024 11:50:10 Human immunodeficiency virus infection 35057046 B20 HIV.Contin ue Biktarvy 1 tab po qd.U=Upt aware of PreP availabili ty.condom use.labs todayplan of care reviewed Candidiasis of mouth 797 49218 B37.0 nystatin 5cc po qid x 14 days. swish and spit.call with any side effects.ba cterial/fu ngal swab obtained. 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 [address] MD Main Office [address] [place] [address] 02/14/2024 12:00:04 02/14/2024 12:24:19 Human immunodeficiency virus infection 68050076 B20 HIV.Contin ue Biktarvy 1 tab po qd.U=Upt aware of PreP availabili ty.DoxyPEP reviewedco ndom use.labs todayplan of care reviewed Methicilli n resistant Staphylococcus aureus infection 769734045 A49.02 swab culture 01/2024 Candidiasi s of the esophagus 04761355 B37.81 sandy glabratafl uconazole 100mg po qd x 14 dayscall with any side effects. Weight loss 34672350 R63 .4 contributi ng factor sandy, MRSA, HIV among othermight benefit from Serostim.w ill review with himG tube [address] MD Main Office [address] [place] [address] 02/21/2024 11:08:05 02/21/2024 12:09:56 Human immunodeficiency virus infection 49396536 B20 HIV.Contin ue Biktarvy 1 tab po qd.complia nce reviewedU= Upt aware of PreP availabili ty.DoxyPEP reviewedco ndom use.labs todayplan of care reviewed Candidiasi s of the esophagus 51237498 B37.81 sandy glabratato complete fluconazol e 100mg po bid x 14 days: (10mg/ml) 10ml by G tube bidcall with any side effects. Methicilli n resistant Staphylococcus aureus infection 139792336 A49.02 swab culture urr ently on Bactrim oral suspension (200mg- 40mg/5ml) since 02/15-20ml q 12 hrs G tube x 10 days Cachexia a ssociated with AIDS 026133577 B20 R64 weight loss. frail. progressin g.contribu ting factor sandy, MRSA, HIV among other. G tubeSerost im 6mg sq qd will be prescribed with the goal of helping w weight gain, increase muscle mass gain, and increase enduranceh e has visiting nurse who could assist with daily injections . [address] MD Main Office [address] [place] [address] 02/25/2024 10:24:53 02/25/2024 11:09:27 Human immunodeficiency virus infection 48733250 B20 HIV.Contin ue Biktarvy 1 tab po qd.complia nce reviewedU= Ucondom use.labs todayplan of care reviewed Candidiasi s of the esophagus 13388643 B37.81 sandy glabratawi ll continue fluconazol e 200 mg po qd x 14 days: (10mg/ml) 10ml by G tube QD;will on next appointmen t for further tx va suppressio n tx.call with any side effects. Cachexia a ssociated with AIDS 350630995 B20 R64 weight loss. frail. progressin g.approved Serostim 6mg sq qd; awaiting delivery to the office. will be prescribed with the goal of helping w weight gain, increase muscle mass gain, and increase enduranceh e has visiting nurse who could assist with daily injections .ensure tidmegace 625 mg qd. Methicilli n resistant Staphylococcus aureus infection 488326433 A49.02 swab culture 01/2024will complete 10 days of Bactrim oral suspension (200mg- 40mg/5ml) since 02/15-20ml q 12 hrs G tube on 02/27/[address] MD Main Office [address] [place] [address] 03/14/2024 10:24:00 03/14/2024 10:29:25 Cachexia associated with AIDS 716353895 R64 B20 gained 2 pounds. probably improved sandy esophagiti s 2nd to inhaled steroids.S Tart Serostim 6mg s/c qd abdomen. first dose administer ed today. Tolerated well; goalis to increase weight, endurance and muscle massHe will have CHIEF DEPUTY and nurse help with daily injections .potential side effects reviewed.t o call with any concernshe will pickling tank operator Megace today, and start it as well(G tube) qd to increase apetitte Human immunodeficiency virus infection 48896951 B20 HIV.Contin ue Biktarvy 1 tab po qd.complia nce reviewed Candidiasi s of the esophagus B37.81 sandy glabratawi ll continue 2 more weeks of fluconazol e 200 mg po qd x 14 days: (10mg/ml) 10ml by G tube QD;might benefit from qw suppressio n tx.call with any side effects. [address] MD Main Office [address] [place] [address] 04/18/2024 09:52:00 04/18/2024 11:19:01 Cachexia associated with AIDS 919518489 R64 B20 124 lbs. gained weightcont inue Serostim 6mg s/c qd abdomen. goalis to increase weight, endurance and muscle masscontin ue Megace G tube qdCNA and nurse helping with compliance and tx.potenti al side effects reviewed.t o call with any concerns Human immunodeficiency virus infection 51464529 B20 HIV.Contin ue Biktarvy 1 tab po qd.complia nce reviewedla bs today Candidiasi s of the esophagus B37.81 sandy glabratawi ll continue fluconazol e 200 (10ml) mg G tube qw for suppressio n tx.call with any side effects. Aspiration pneumonia 422 733801 J69.0 get discharge summaryon antibiotic ;eat standing or sitting; [place] [address] MD Main Office [address] [place] [address] 05/20/2024 10:17:53 05/20/2024 12:44:49 Cachexia associated with AIDS 682747899 R64 B20 continue Serostim 6mg s/c qd abdomen. goal is to increase weight, endurance and muscle masscontin ue Megace G tube qd 5cc qdCNA and nurse helping with compliance and tx.potenti al side effects reviewed.t o call with any concerns Human immunodeficiency virus infection 05636234 B20 HIV.Contin ue Biktarvy 1 tab po qd.padmini hoffman reviewedla bs today Candidiasi s of the esophagus 29111902 B37.81 sandy glabrataho ld fluconazol e for nowSTART 1 tab po bid x 21 says for esophageal sandy glabrata.c all with any side effects. [address] MD Main Office [address] [place] [address] 06/18/2024 10:10:09 06/18/2024 11:12:33 Cachexia associated with AIDS 732418723 R64 B20 continue Serostim 6mg s/c qd abdomen. goal is to increase weight, endurance and muscle massCNA and nurse helping with compliance and tx.megace on holdpotent ial side effects reviewed.t o call with any concerns Human immunodeficiency virus infection 69987770 B20 HIV.Contin ue Biktarvy 1 tab po qd.padmini hoffman reviewedla bs today Inflammato ry disease of liver 641897604 K75.9 Suspect 2nd to concomitan t medication s. ongoingdo not re-start fluconazol e nor megacenega tive infectious and non-infect ious workupto call or ER if jaundice, abd pain, n/v/d marce mendy History of calculus of kidney 338495184 Z87.442 u/s 05/[address] scan 02/2024hydr ation Aspiration pneumonia 422 609032 J69.0 s/p aspiration on CT AngioNPO per instructio n given to him in hospital; nutrition by G tubes/p (ceftriaxo ne,Azithro ,Flagyl while in Hospital;d ischarged on azithro and cefpodoxim e x 3 days which he completed. leg elevationa void sedating meds as much as possible Deep venou s thrombosis of lower extremity 953248425 I82.409 left lower extremity doppler showed DVT of gastrocnem ius vein;on tx w w Eliquis bid . Pulmonary embolism [address] Angio was positive for Acute lobar PEs/p heparin; ongoing Eliquis bidmed list reviewed.n o drug use for years. not on maintenanc e tx.denies current ETOH use. [address] MD Main Office [address] [place] [address] 07/15/2024 15:10:10 07/15/2024 15:45:30 Cachexia associated with AIDS 060965726 R64 B20 continue Serostim 6mg s/c qd abdomen. goal is to increase weight, endurance and muscle masspotent ial side effects reviewed.t o call with any concerns Human immunodeficiency virus infection 92432442 B20 HIV.Contin ue Biktarvy 1 tab po qd.complia nce reviewedla bs Candidiasi s of the esophagus 7.81 on clotrimazo le. swish and spit qd Medication monitoring [address] MD Main Office [address] [place] [address] 10/21/2024 12:22:54 10/21/2024 16:48:51 Cachexia associated with AIDS 754495166 R64 B20 improvedco ntinue Serostim 6mg s/c qd abdomen. goal is to increase weight, endurance and muscle masspotent ial side effects reviewed.m ay start decreasing dose in 1-2 months if further weight gainon Boost protein shakesto call with any concerns Human immunodeficiency virus infection 30197944 B20 HIV.Contin ue Biktarvy 1 tab po qd.complia nce reviewedla bs Candidiasi s of the esophagus 781 on clotrimazo le. swish and spit qd/BID PRN [address] MD Main Office [address] [place] [address] 11/25/2024 11:48:55 11/25/2024 14:20:54 Cachexia associated with AIDS 111014073 R64 B20 improvedco ntinue Serostim 6mg s/c [...] with any concerns Human immunodeficiency virus infection 28542647 B20 HIV.Contin ue Biktarvy 1 tab po qd.compljordon copelande reviewedla bs Candidiasi s of the esophagus 03488163 B37.81 off/on; recurrento n clotrimazo le. swish and spit qd/BID PRN for suppressio n Insomnia 932688594 G47.0 0 benadryl capsules requested by patient forinsomni a and itchiness as needed.cor rect use reviewed. [address] MD Main Office [address] [place] [address] 12/30/2024 15:04:38 12/31/2024 09:52:40 Cachexia associated with AIDS 193780943 R64 B20 improvedco ntinue Serostim 6mg s/c [...] with any concerns Human immunodeficiency virus infection 95850697 B20 HIV.Contin ue Biktarvy 1 tab po qd.padmini hoffman reviewedla bs Candidiasi s of the esophagus 58727645 B37.81 off/on; recurrento n clotrimazo le. swish and spit /BID/TID PRN for suppressio n Health Concerns Section Related Observation LastModified by Organization Detai ls LastModified Time None Recorded Concern Status LastModified by Organization Details LastModified Time None Recorded Advance Directives Directive None Recorded Payers Encounter Date Sequence Insurance Name Policy Number Policy Perry Covered Member ID Perry Member ID Guarantor Name 06/18/[address] [facility] - DOS ON OR AFTER 2022 - MEDICARE [place]VANTAGE [place] (MED[place]ARE REPLACEMENT/AD VANTAGE - PPO) Benjamin Juan David [id number] Benjamin Juan David 07/15/[address] [facility] - DOS ON OR AFTER 2022 - [place]/AD VANTAGE - PPO) [facility] Juan David [id number] [facility] 10/21/2024 1 [email or web address] - DOS ON OR AFTER 2022 - [place]ANTAGE - PPO) [facility] Fall [id number] [facility] 11/25/2024 1 [email or web address] - DOS ON OR AFTER 2022 - [place] VANTAGE - PPO) [facility] Fall [id number] [facility] 12/30/2024 [email or web address] ON OR AFTER 2022 - [place] RE[place]/AD VANTAGE - PPO) [facility] Fall [id number] [facility] Notes Date Note Type Note Provider Name and Address Organization Details Recorded Time 06/18/2024 text/html HIVOn Biktarvy 1 tab po qd.reports daily compliance. denies missing dose.resolved thrush. hx recurrence. fluconazole and voriconazole on hold. Pt reports was hospitalized at [facility] 06/10/24-06/13/24 ( got to ER [...] calculi. he has had kidney stones in the past as seen on CT scan [...] VL nondetetcted01/2024 HIV VL nondetcetd;eGFR=76;AST /ALT wnl;11/2023 XX2=385; HIV VLnondetceted; no infections.01/2022 WA6=179; HIV VL nondetceted; eGFR>60; ALt/AST wnl; syphilis neg; GC/chlamydia neg Cheryl Street MD [address] [place] [address], [phone], [address] [facility] 06/18/2024 18:19:56 07/15/2024 text/html HIVOn Biktarvy 1 tab po qd.reports daily compliance. denies missing dose.thrush on/off: recurrence. on clotrimazole daily .stable weight 120lbshe says he is eating more and apetitte has improvedfeels strongergetting serostim dailyno hospitalizations since he was last seenmed list reviewed.On Eliquis and enoxaparin. recent PE/DVT.VL nondetected03/2024 HIV VL nondetctedHIV VL nondetetcted01/2024 HIV VL nondetcetd;eGFR=76;AST /ALT wnl;11/2023 QK0=836; HIV VLnondetceted; no infections. Cheryl Street MD [address] [place] [address], [phone], [address] [facility] 07/15/2024 15:47:48 10/21/2024 text/html HIVOn [...] notify site start date and confirm medication. CLINICAL DIETICIAN in room with his consent. Cheryl Street MD [address] [place] [address], [phone], [facility] [address] [facility] 10/21/2024 14:34:28 11/25/2024 text/html HIVOn [...] cyst removal in recent weeks. outpatient/day procedure. CLINICAL DIETICIAN in room with his consent. 07/2025 HIV VL nondetceted; ALt/AST wnl; eGFR>60; QE7=[address] MD [address] [place] [address], [phone], [facility] [address] [facility] 11/26/2024 15:09:42 12/30/2024 text/html HIVOn Biktarvy 1 tab po qd.reports daily compliance. denies missing dose.thrush. gets on/off and using clotrimazole to treat/suppress.gaining weight: 120lbs ---145lbs --152 lbsno aspirationgetting serostim daily for cachexia,no side effects.might get G tube removed in February 2025.no hospitalizations since he was last seenmed list reviewed. CLINICAL DIETICIAN [facility]. came in today with a a friendVL nondetceted;07/2025 HIV VL nondetceted; ALt/AST wnl; eGFR>60; NK6=[address] MD [address] [place] [address], [phone], [facility] [address] [facility] 12/30/2024 16:39:33
--- OUTSIDE RECORDS SUMMARY | 2025-01-20 10:31 | XMS_ITS | Patient Health Record ---
Demographics Address [address] [place] [address] Preferred Language es Marital Status Unknown Anglican Affiliation Unknown Race White Ethnic Group Not or Lati no Author Organization [facility] Address [address] [place] [address] Care Team Providers Care Velvet Cutter Name Role Phone Terese Rivera Primary Care Provider Pepe Dangelo Unavailable [phone] Allergies Allergen (clinical drug ingredient) Drug/Non Drug [...] Status Risk Notes Problem Protein calorie malnutrition (362238207) Unspecified protein-calorie malnutrition (E46) Active confirmed Problem Anorexia (51483504) Anorexia (R63.0) Active confirmed Problem Dysphagia (27033725) Dysphagia (R13.10) Active confirmed Problem PEG (percutaneous endoscopic gastrostomy) adjustment/repla cement/removal (Z43.1) Active confirmed Vital Signs Blood pressure diastolic 00 mm Hg 10/09/2024 Height 66 in 10/09/2024 Blood pressure systolic 00 mm Hg 10/09/2024 Weight 147 lbs 10/09/2024 BMI 23.72 kg/m2 10/09/2024 Encounters Encounter Location Date Provider Diagnosis [facility] [address] [place] [address] 10/09/2024 Pepe Stephenson Dysphagia R13.10 ; Unspecified protein-calorie malnutrition E46 and PEG (percutaneous endoscopic gastrostomy) adjustment/replacement /removal Z43.1 [facility] [address] [place] [address] 10/26/2024 Pepe Stephenson Assessments Encounter Date Diagnosis (ICD [...] Once we have the results of the [facility] GI series from 10/2024 and see how [...] Name:Pepe Stephenson , 02/12/2025 11:00:00 AM, [address], [address], [place], [address], Insurance Providers Payer Name Payer Address Payer Phone Subscriber Number Group Number Insured Name Patient Relationship to Insured Coverage Start Date Coverage End Date [facility] [address] Attn Claims HOSEA Solorzano [id number] [facility] Self - patient is the insured Medical [...]
--- OUTSIDE RECORDS SUMMARY | 2025-01-20 10:32 | XMS_ITS ---
Demographics Address [address] [place] [address] Preferred Language es Marital Status Unknown Faith Affiliation Unknown Race White Ethnic Group Not or Lati no Author Organization [facility] Address [address] [place] [address] Care Team Providers Care Past Due Accounts Clerk Name Role Phone Terese Rivera Primary Care Provider Pepe Dangelo [phone] Encounters Encounter Location Date Provider Diagnosis [facility] [address] [place] [address] 10/26/2024 Pepe Stephenson Plan Of Treatment Next Appt Details Provider Name:Pepe Stephenson , 02/12/2025 11:00:00 AM, [address], [address], [place], [address], Progress Notes * VICKIE DUFFYDOB:1965 (59 yo M)Acc No.[id number]:10/26/2024 Patient:?VICKIE DUFFY :1965???Age:59 Y???Sex:Male Address:[address], [place], [address] * true * Date:? Generated for Darryl ng/Hannah/eTransmitting on:?01/20/2025 10:31 AM EDT
--- OUTSIDE RECORDS SUMMARY | 2025-01-20 10:32 | XMS_ITS ---
Demographics Address [address] [place] [address] Preferred Language es Marital Status Unknown Roman Catholic Affiliation Unknown Race White Ethnic Group Not or Lati no Author Organization [facility] Address [address] [place] [address] Care Team Providers Care Background Check Coordinator Name Role Phone Terese Rivera Primary Care Provider Pepe Dangelo Unavailable [phone] REASON FOR VISIT Pt no show Encounters Encounter Location Date Provider Diagnosis [facility] [address] [place] [address] 12/14/2023 Pepe Stephenson Plan Of Treatment Next Appt Details Provider Name:Pepe Stephenson , 02/12/2025 11:00:00 AM, [address], [address], [place], [address], Progress Notes * VICKIE DUFFYDOB:1965 (58 yo M)Acc No.[id number]:12/14/2023 Patient:?VICKIE DUFFY :1965???Age:58 Y???Sex:Male Address:[address], [place], [address] * true * Date:? Generated for Vanesai berenice/Hannah/eTransmitting on:?01/20/2025 10:31 AM EDT
--- OUTSIDE RECORDS SUMMARY | 2025-01-20 10:32 | XMS_ITS | Data Portability ---
Author Organization [facility] in [facility] [email or web address] Address [address] [place] [address] Care Team Providers Care Sales Support Coordinator Name Role Phone HIM [facility] OTHER [facility] OTHER [phone] Assessment No assessment recorded. Plan of Treatment [...] Not available Not available Not available 07/08/2024 04646 RxNorm Not Available [facility] - production 4 [...] SNOMED-CT Code Diagnosis ICD10 Code Diagnosis Note 34962 ERLINDA HOLLIDAY MD Main - [facility] [address] [place] [address] 03/06/2024 16:50:44 03/07/2024 17:38:50 Lethargy 202251561 R53.83 Evaluation in the field was performed by my tunneling machine operator colleague. As noted above, I provided real-time [...] He is afebrile. Per discussion with the tunneling machine operator, the patient looked lethargic, walked with an [...] n. The patient was transferre d to [facility] for further evaluation and treatment. His PCP was informed of the transfer to the ED. Primary care, consider__ _ Dispositio n:[facility] Health Concerns Section Related Observation LastModified by Organization Jazzy ls LastModified Time None Recorded Concern Status LastModified by Organization Details LastModified Time None Recorded Advance Directives Directive None Recorded Payers Insurance Date Sequence Insurance Name Policy Number Policy Perry Covered Member ID Perry Member ID Guarantor Name 05/14/2024 1 [facility] - DOS ON OR AFTER 2022 - DUAL ELIGIBLE - [employer] OPTIONS AND ONE CARE (MEDICARE REPLACEMENT/ADV ANTAGE - HMO) Benjamin Juan David [id number] [facility] Juan David Notes Date Note Type [...] ................. ................. ................. ................. ................. ................. ..... Porcelain Enameler Note From Francisco Ley: Dispatched to above address for headache sore throat. On arrival patient met [facility] at the door. Initially patient denied calling for medical help or having any symptoms. [facility] confirmed patient name and address, after this [...] focus on current situation, poor affect, lethargic. [facility] contacted, spoke with Dr. Holliday, advised of patient complaints and exam findings. [facility] agreed further evaluation in the ER is necessary for this patient. Patient agreed to this. Patients neighbor who assists patient arrived to check on him. She reports this doesn't seem like his normal mentation but cannot be sure. 911 called. [place] [facility] responded. Verbal report given to [place] Porcelain Enameler. [place] tunneling machine operator took over patient care. Mi8 clear. E[facility]. ................. ................. ................. ................. ................. ................. ................. ................. ..... Disposition: Shahzad HOLLIDAY MD [address] [facility], [place], [address], [place] KEERTHI BLOCK 03/06/2024 18:02:19
--- OUTSIDE RECORDS SUMMARY | 2025-01-20 10:32 | XMS_ITS ---
Demographics Address [address] [facility] [address] [place] [address] Preferred Language es Marital Status Unknown Baptism Affiliation Unknown Race White Ethnic Group Not or Lati no Author Organization [facility] Address [address] [place] [address] Care Team Providers Care Nurse Staff Industrial Name Role Phone Terese Rivera Primary Care Provider Pepe Dangelo Unavailable [phone] Allergies Allergen (clinical drug ingredient) Drug/Non Drug [...] 10/09/2024 Encounters Encounter Location Date Provider Diagnosis [facility] [address] [place] [address] 10/09/2024 Pepe Stephenson Dysphagia R13.10 ; Unspecified protein-calorie malnutrition E46 and PEG (percutaneous endoscopic gastrostomy) adjustment/replacement /removal Z43.1 Assessments Encounter Date Diagnosis (ICD Code) Assessment Notes Treatment Notes Treatment Clinical Notes Section Notes 10/09/2024 Dysphagia (ICD-10 - R13.10) Once we have the results of the [facility] GI series from 10/2024 and see [...] 3 days before that. I did advise Vikcie to contact me before that if he has any problems or questions I can be of assistance with. Vickie was comfortable with this plan. Thank you again for allowing me to participate in Vickie's care. I shall continue to keep you advised of his progress. Plan Of Treatment Treatment Notes Assessment Notes Dysphagia Once we have the res ults of the [facility] GI series from 10/2024 and see [...] Name:Pepe Stephenson , 02/12/2025 11:00:00 AM, [address] [facility], [address], [place], [address], Progress Notes * VICKIE DUFFYDOB:1965 (59 yo M)Acc No.[id number]:10/09/2024 Progress Notes Patient:?VICKIE DUFFY Provider:?Pepe Stephenson MD :1965???Age:59 Y???Sex:Male Hansel e:10/09/2024 Address:[address] [place], [place] [address] Pcp:Terese Keenan Subjective: * Chief Complaints: * ???Patient presents today fo r a PATIENT RECEIVED RECALL LETTER * HPI: ???incontinence:? I saw Vickie in the office today for evaluation of his previous history of dysphagia with associated weight loss and subsequent placement of a G-tube. He is accompanied by his MONITORING ENGINEER, Good, who helped with interpreting. ?I last [...] DVTs and pulmonary emboli last Fall at [facility] and has been on Eliquis for that since early June of 2024. He is scheduled to see Dr. Wray for follow up next month. He is also scheduled for a barium swallow next month with the speech and swallowing department through [facility]. ?Vickie reports that he generally feels [...] past year??No,?Points?0,?Interpretation?Negative.?Miscellaneous:?Marital status: single. Occupation: Retired from [employer]--had worked their for 27 years. ???Nonsmoker; [...] Codes:?G9711 PT W/ DX PAST HX TOTAL COLECTOMY/[id number] TOBACCO NON- [id number] BP SCR NOT PRFRM REC REASON NOS * Preventive Medicine:? ??Screenings:?Fall Risk Screening?Fall Risk Assessment:?No falls in the past year,?Screening:?No falls in the past year,?Assessment:?Not performed, no reason specified,?Plan of Care:?Not documented, no reason specified.? * Follow Up:?January or February for o ffice Gtube removal * * Sign off status: Completed true * Provider:?Pepe Stephenson MD Date:? 025 Generated for Darryl ng/Hannah/Javier on:?01/20/2025 10:31 AM EDT History and Physical Notes * HPI (History of Present Illness) Category Sub-Category Detail Notes Category Not es incontinence I saw Vickie in the office today for evaluation of his previous history of dysphagia with associated weight loss and subsequent placement of a G-tube. He is accompanied by his MONITORING ENGINEER, Good, who helped with interpreting. I last [...] DVTs and pulmonary emboli last Fall at [facility] and has been on Eliquis for that since early June of 2024. He is scheduled to see Dr. Wray for follow up next month. He is also scheduled for a barium swallow next month with the speech and swallowing department through [facility]. Vickie reports that he generally feels [...]
--- OUTSIDE RECORDS SUMMARY | 2025-01-20 10:33 | XMS_ITS | Clinical Summary ---
Author Organization [facility] Address [address] [place] [address] Care Team Providers Care Atomic Welder Name Role Phone Zora Arce PA-C Primary Care Provider [phone] Source Comments PLEASE NOTE, if this patient [...] EC tabletIndications:H IV (human immunodeficiency virus infection) ([facility]) Take 1 Tab by mouth once daily. [...] NUTRITION) liquidIndications:H IV (human immunodeficiency virus infection) ([facility]) Take 1 Can by mouth 3 (three) [...] 0.65 % nasal sprayIndications:As thma, intermittent, uncomplicated ([facility]) Place 1 [place] into the nostril(s) as needed for congestion. 60 mL 6 016 Active omeprazole (PRILOSEC) [address] capsuleIndications: Dyspepsia Take 1 Cap by mouth every morning before breakfast. Do not crush or chew. 30 Cap 3 016 Active albuterol sulfate hfa (PROAIR HFA) 90 mcg/actuation inhalerIndications: Asthma, intermittent, uncomplicated ([facility]) Inhale 2 Puffs into the lungs every 4 (four) hours as needed for shortness of breath. Int asthma 18 g 6 016 Active Active Problems Problem Noted Date Diagnosed Date Asthma, mild intermittent ([facility]) 05/06/2015 Fibromyalgia 01/27/2015 Generalized anxiety disorder 01/27/2015 Seizure disorder ([facility]) 01/27/2015 Major depressive disorder, r ecurrent, severe without psychotic features ([facility]) 01/27/2015 Overview (01/27/2015): Has therapist at [facility] HIV (human immunodeficiency virus infection) ( [facility]) 01/27/2015 Chronic back pain 01/27/2015 Hepatitis [...] Fall Relation to Subscriber:Self Name:Benjamin Fall Payer ID:[id number] Group ID:Not on file Type:Medicaid Address: [place] [address] [place] [address] DENTAL Care Teams Atomic Welder Relationship Specialty Start Date End Date Zora Arce PA-C [address] [place] [address] PCP - General 11/05/18
--- OUTSIDE RECORDS SUMMARY | 2025-01-20 10:33 | XMS_ITS | Data Portability ---
Author Organization [facility] [employer] [facility], Main Office Address [address] [facility] [place] [address] Care Team Providers Care Cardroom Attendant Name Role Phone BRENDAN HOLLINGSWORTH - 2ND FLOOR OTHER Assessment Encounter Date Assessment Date Assessment LastModified by Organization Details LastModified Time 09/18/2023 09/18/2023 45 minutes spent on coordination of discharge. [email or web address] Not available 09/18/2023 09:47:05 Plan of Treatment [...] and Address Organization Details Recorded Time Asthenia 24913048 Active 2022 MAURO DUFFY NP [address] [facility], [address], [place], [address], [facility] [employer] 3 12:08:07 Moderate protein-calori e malnutrition (weight for age 60-74 percent of standard) 814255939 Active 2022 MAURO DUFFY NP [address] [facility], [address], [place], [address], [facility] [employer] 3 12:08:23 Pneumonia 770980011 Active 2022 MAURO DUFFY NP [address] [facility], [address], [place], [address], [facility] [employer] 3 12:08:31 Pleural effusion 30632990 Active 2022 MAURO DUFFY NP [address] [facility], [address], [place], [address], [facility] 3 12:08:59 Hypertensive disorder 68944465 Active 2022 MAURO DUFFY NP [address], [address], [place], [address], [facility] [employer] [facility] 3 12:09:07 Human immunodeficien cy virus infection 08412226 Active 2022 MAURO DUFFY NP [address], [address], [place], [address], [facility] 3 12:09:12 Viral hepatitis C 16185760 Active 2022 MAURO DUFFY NP [address], [address], [place], [address], [facility] 3 12:09:28 Mixed anxiety and depressive disorder 833995533 Active 2022 MAURO DUFFY NP [address], [address], [place], [address], [facility] 3 12:09:40 Asthma 218950232 Active 2022 MAURO DUFFY NP [address], [address], [place], [address], [facility] 3 12:09:56 Acute dermatitis 37668550 Active 2022 MAURO DUFFY NP [address], [address], [place], [address], [facility] 3 12:14:27 Migraine 89605734 Active 2022 MAURO DUFFY NP [address], [address], [place], [address], [facility] 3 12:25:08 Non-traumatic rhabdomyolysis 003928794 Active 2022 Leilani Romeo MD [address], [address], [place], [address], [facility] 3 10:08:19 Moderate persistent asthma 927973429 Active 2022 Leilani Romeo MD [address], [address], [place], [address], [facility] 3 10:18:10 Insomnia 217153568 Active 2022 Leilani Romeo MD [address], [address], [place], [address], [facility] 3 10:19:09 Harmful pattern of use of multiple substances 165134935 Active 2022 Leilani Romeo MD [address], [address], [place], [address], [facility] 3 10:19:11 Adult failure to thrive syndrome 274338301 Active 2022 Maryjane Glover NP [address], [address], [place], [address], [facility] 3 13:27:15 Anemia 813140492 Active 2022 Maryjane Glover NP [address], [address], [place], [address], [facility] 3 13:30:43 Dysphagia 91263329 Active 2022 Leilani Romeo MD [address], [address], [place], [address], [facility] 3 20:51:38 Gastroesophage al reflux disease without esophagitis 585852691 Active 2022 Leilani Romeo MD [address], [address], [place], [address], [facility] 3 20:54:24 Chronic pain 85827238 Active 2022 Leilani Romeo MD [address], [address], [place], [address], [facility] 3 20:55:56 Problem Notes None recorded. Medical Equipment None Reported. Allergies Allergen ID Allergen Name Allergen Category Reaction Reaction Severity Criticality Documentation Date Start Date Code Code System Note Provider Name and Address Organization Details Recorded Time 92548 codeine medicatio n Not available Not available Not available 01/17/2023 5780 RxNorm rash MAURO DUFFY NP [address], [address], [place], [address], [facility] 3 12:06:48 82273 Levaquin medicatio n Not available Not available Not available 01/17/2023 41554 2 RxNorm sharan DUFFY NP [address] [facility], [address], [place], [address], [facility] 3 12:06:58 65638 Reglan medicatio n Not available Not available Not available 01/17/2023 9230 RxNorm rash MAURO DUFFY NP [address] [facility], [address], [place], [address], [facility] 3 12:07:11 58406 ibuprofen medicatio n Not available Not available Not available 01/17/2023 5640 RxNorm reflu x MAURO DUFFY NP [address] [facility], [address], [place], [address], [facility] 3 12:07:28 99820 Product containin g penicilli n (product) medicatio n Not available Not available Not available 01/17/2023 56033 8001 SNOMED rash MAURO DUFFY NP [address] [facility], [address], [place], [address], [facility] 3 12:07:45 52951 Ultram medicatio n Not available Not available Not available 01/17/2023 53607 6 RxNorm N/V MAURO DUFFY NP [address] [facility], [address], [place], [address], [facility] 3 12:07:56 23220 acetamino phen medicatio n other Not available unabletoasse 08/03/2023 161 RxNorm unkno wn Maryjane Glover NP [address] [facility], [address], [place], [address], [facility] 3 13:00:59 61816 [employer] environme nt,medica tion other Not available unabletoasse 08/03/2023 33414 6 RxNorm unkno wn Maryjane Glover NP [address] [facility], [address], [place], [address], [place] [facility] 3 13:01:38 Medications Name Sig Start Date [...] Details Last Updated DateTime 3 167.64 cm 97766.5 4 g 17.4 kg/m2 86 /min 18 /min 97.6 [degF] 91 % 91 % 115 mm[Hg] 68 mm[Hg] Maryjane Glover NP [address], [address] , [facility] 3 11:08:33 Date Recorded Body height Body weight Heart rate Respiratory rate Body temperature Oxygen saturation Oxygen saturation in Arterial blood by Pulse oximetry Systolic blood pressure Diastolic blood pressure Provider Name and Address Organization Details Last Updated DateTime 3 167.64 cm 22853.5 4 g 72 /min 18 /min 97.1 [degF] 96 % 96 % 115 mm[Hg] 68 mm[Hg] Maryjane Glover NP [address], [address] , [facility] 3 13:10:32 Date Recorded Body height Body mass index (BMI) Body weight Heart rate Systolic blood pressure Diastolic blood pressure Provider Name and Address Organization Details Last Updated DateTime 3 167.64 cm 17.3 kg/m2 50904.3 8 g 74 /min 133 mm[Hg] 85 mm[Hg] Dilia Gonzalez [address] [facility], [address], [place], [address], [facility] 3 13:13:45 Date Recorded Body height Body weight Heart rate Respiratory rate Body temperature Oxygen saturation Oxygen saturation in Arterial blood by Pulse oximetry Systolic blood pressure Diastolic blood pressure Provider Name and Address Organization Details Last Updated DateTime 4 167.64 cm 46862.5 4 g 88 /min 18 /min 97.6 [degF] 96 % 96 % 133 mm[Hg] 85 mm[Hg] Maryjane Glover NP [address] [facility], [address], [place], [address], [facility] 4 19:10:48 Date Recorded Body height Heart rate Respiratory rate Body temperature Oxygen saturation Oxygen saturation in Arterial blood by Pulse oximetry Systolic blood pressure Diastolic blood pressure Provider Name and Address Organization Details Last Updated DateTime 4 167.64 cm 84 /min 18 /min 97.5 [degF] 98 % 98 % 133 mm[Hg] 85 mm[Hg] MAURO DUFFY NP [address] [facility], [address], [place], [address], [facility] 4 08:57:54 Social History Question Answer Notes LastModified by [employer] Details LastModified Time Tobacco Smoking Status Never Smoker MAURO DUFFY NP [address] [facility], [address], [place], [address], [facility] 01/17/2023 11:35:26 Do You Have An Advance Directive? Yes Information not available 01/17/2023 What Is Your Code Status? Full Code [email or web address] Information not available 01/17/2023 Where Do You Live? Apartment With Elevator, Family Near By, Helpful [email or web address] Information not available 01/17/2023 What Was The Date Of Your Most Recent Tobacco Screening? 08/03/2023 Information not available 08/03/2023 Has Tobacco Cessation Counseling Been Provided? No [email or web address] Information not available 01/17/2023 Sex: Unknown Functional Status Question Answer Note LastModified by Organizat ion Details LastModified Time Do you use any illicit or recreational drugs? No noted past use cocaine Information not available 08/03/2023 Do you or have you ever used any other forms of tobacco or nicotine? No [email or web address] Information not available 01/17/2023 What is your level of alcohol consumption? None [email or web address] Information not available 01/17/2023 Mental Status None recorded. Family History Relationship Description Onset Age of this Age Resolved Age Notes LastModified by Organization Details LastModified Time Mother Malignant neoplasm of lung [email or web address] Not available 2022 11:34:21 Medical History No medical history recorded. Immunizations Vaccine Type Date Status Note Provider Nam laurel and Address Organization Details Recorded Time COVID-19, mRNA, LNP-S, bivalent, PF, 50 mcg/0.5 mL or 25mcg/0.25 mL dose 2 completed Asia juarez [facility] 09/11/2023 13:44:56 COVID-19, mRNA, LNP-S, bivalent, PF, 50 mcg/0.5 mL or 25mcg/0.25 mL dose 3 completed Asia juarez [facility] 09/11/2023 13:45:39 Pneumococcal conjugate PCV20, polysaccharide LOX230 conjugate, adjuvant, PF 3 completed Asia Andre [facility] 09/11/2023 13:46:16 Influenza, adjuvanted, quadrivalent, PF 3 completed Asia juarez [facility] 09/11/2023 13:46:36 Influenza, adjuvanted, quadrivalent, PF 2 completed Asiayahaira Andre [facility] 10/24/2023 13:13:32 Past Encounters Encounter ID Performer Location Encounter Start Date Encounter Closed Date Diagnosis/Indication Diagnosis SNOMED-CT Code Diagnosis ICD10 Code Diagnosis Note [id number] MAURO DUFFY NP [address] [address] 01/17/2023 11:16:19 01/22/2023 12:34:21 Pleural effusion 57035262 J90 and empyema, resp. failures/p L chest tube, intubation Clinically improved.M onitor VS, sats, LS, CP status closely for decompensa tion Pneumonia 312936821 J18. 9 Treated with IV zosyn in hosp.Clini lesly improved.A s above, monitlr VS, sats, LS, CP status closely Asthenia 30879293 R53.1 PT OT eval and tx. 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 diet here, doing well. Refer to rehab to try to get bedside FEES testing Hypertensive disorder 38 203790 I10 On norvasc 5 mg dailyPropr anolol ER held in hosp., instructed to resume 03/09, unclear as to why held or if used for something else?Monio r VS, adjust meds prn Human immunodeficiency virus infection 02656165 B20 Continue biktarvy Mixed anxi ety and depressive disorder 708905132 F41.8 Continue home meds:clona zepam 1 mg daily? risperdal 2 mg HSremeron 60 mg HSMonitor mood, behaviors for changePsyc h eval prn Asthma 789714211 J45.90 9 Continue flovent bidMonitor resp. status for change Acute dermatitis 0215917 6 L30.9 bilat. groin, fungalstar t nystatin cream or powder bid x 14 days or until clearmonit or Migraine 36840231 G43.90 9 Continue home meds:Celeb monica 200 mg bidgabapen tin 600 mg tidibuprof en 800 mg q8 hr prnultram 50 daily prn? clonazepam 1 mg daily? risperdal 2 mg HS? propranolo l Er 120 mg daily - held in hosp - cont. to hold here, resume date of 03/09 [id number] Kenia Michaels MD [address] [address] 01/19/2023 07:22:18 01/22/2023 15:16:30 Pneumonia 319380830 J15.8 antibiotic s completeds /p empyema, respirator y failure, intubation will monitor Asthenia 11323735 R53.1 PT/OTwill monitor Human immunodeficiency virus infection 79874083 B20 Biktarvy 50-200-25 dailyfu I.D. Essential hypertension 56498742 I10 amlodipine 5 mg dailywill monitor Mixed anxi ety and depressive disorder 003423288 F41.8 gabapentin 600 mg tidmirtaza pine 60 mg at hsrisperid one 2 mg at hsclonazep am 1 mg dailywill monitor Gastroesop hageal reflux disease without esophagitis 197226705 K21.9 pantoprazo le 40 mg dailywill monitor Chronic pain 76553049 G8 9.29 gabapentin 600 mg tidhospita l discharge notes include:ce lecoxib 200 m bid, ibuprofen 800 mg q8h prn, tramadol 50 mg daily prnwill monitor and consider if needed [id number] Panchito Morales NP [facility] on [address] [place] [address] 06/30/2023 08:20:37 07/03/2023 11:44:52 Human immunodeficiency virus infection 08930551 B20 06/30/23mo nitorID consult as indicated- biktarvy (bictegrav ir, emtricitab ine & tenofovir alafenamid e) 50-200-25m g QD Hypertensive disorder 38 531590 I10 06/30/23mo nitorcards FU PRNavoid beta barb with HX of cocaine abuse-amlo dipine 5mg QD Mixed anxi ety and depressive disorder 857997478 F41.8 06/30/23mo nitorpsych consult PRN-risper idone 3mg QHS Viral hepatitis C 984591 07 B19.20 06/30/23mo nitor [id number] Leilani Romeo MD [facility] on [address] [place] [address] 07/02/2023 17:00:01 07/12/2023 14:37:46 Human immunodeficiency virus infection 88707173 B20 Non-detect able on last checkConti nue biktarvy (bictegrav ir, emtricitab ine & tenofovir alafenamid e) 50-200-25m g QDF/U with ID as planned. Hypertensive disorder 38 480241 I10 BP good since here.Sam nue amlodipine 5 mg qdMonitor BP and labs. Mixed anxi ety and depressive disorder 939132183 F41.8 Mood stable.Con tinue risperidon e 3 mg qhs, mirtazapin e 30 mg qhs, and clonazepam 1 mg qd.Monitor mood.Psych consult prn. Viral hepatitis C 225753 07 B18.2 Unclear hx.LFTs WNL.F/U as outpt. Acute chest pain 0124939 01 R07.89 Per cardio not ACS.Monito r sxs.F/U with cardio prn. Non-trauma tic rhabdomyolysis 110224875 M62.82 CPK trended down inpt.No need to monitor further. Moderate p ersistent asthma 269233592 J45.40 No SOB or hypoxia, but with junky cough as above.Cont inue Advair 230/21 two puffs BID, Flovent 2 puffs BID, and albuterol/ budesonide 2 puffs q 6 hrs prn.Monito r resp status. 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 Cough 66490674 R05.8 Sounds junky, but pt says it feels like tickle in throat. Maybe post nasal drip.Lungs clear, but still could be early PNA.Will start Robitussin DM 10 ml q 4 hrs prn and get CXR tomorrow.M onitor resp status. Insomnia 057471174 G47.0 9 Will try melatonin 5 mg qhs.Monito r sleep patterns. [id number] MIGUEL BROWN [facility] on [address] [place] [address] 07/05/2023 08:16:20 07/12/2023 16:01:31 Mixed anxiety and depressive disorder 115575275 F41.8 07/05: his mood is stablecont inue:clona zepam 1 mg dailyrispe ridone 3 mg daily at bedtime.Mi rtazapine 30 mg at bedtime daily.tu tonin 5 mg at bedtime daily Cough 19931280 R05.8 07/05: non productive upper airway congested coughThere is no SOB. LS are clearCXR completed; no active pulmonary infiltrate s or pleural effusions seen.Robit ussin DM 10 ml q 4 hrs prn- will scheduled for a few days, does not look like he requested prn.Monito r resp status. Harmful pa ttern of use of multiple substances 576044791 F19.10 Most often cocaine, but sometimes other things.Con tinue SUDs counseling while here and encourage abstinence and outpt f/u. [id number] MIGUEL BROWN [facility] on [address] [place] [address] 07/06/2023 09:35:29 07/12/2023 16:16:45 Mixed anxiety and depressive disorder 248464171 F41.8 continue:c lonazepam 1 mg dailyrispe ridone 3 mg daily at bedtime.Mi rtazapine 30 mg at bedtime daily.tu tonin 5 mg at bedtime dailyfollo w up with outpatient PCP. Cough 48643196 R05.8 CXR on 07/03/23 negative for any acute process.Ro bitussin DM 10 ml q 4 hrs prnfollow up with outpatient PCP. Acute dermatitis 4912168 6 L30.9 continueny statin cream BID as needed until clearedfol low up with outpatient PCP. Asthma 863324711 J45.90 9 Advair 230/21 two puffs BID,Floven t 2 puffs BID, andalbuter ol/budeson kentrell 2 puffs q 6 hrs prn.follow up with outpatient PCP. Human immunodeficiency virus infection 31638586 B20 Continue biktarvy (bictegrav ir, emtricitab ine & tenofovir alafenamid e) 50-200-25m g QD Hypertensive disorder 38 005601 I10 Continue amlodipine 5 mg qdfollow up outpatient Insomnia 923495419 G47.0 9 melatonin 5 mg at bedtime Migraine 14314572 G43.90 9 Continue home meds: Celebrex 200 mg bid gabapentin 600 mg tid ibuprofen 800 mg q8 hr prn ultram 50 daily prn clonazepam 1 mg daily risperdal 3 mg HS follow up with PCP Viral hepatitis C 586326 07 B18.2 follow labs outpatient follow up with outpatient pcp. [id number] Maryjane Glover NP [address] [address] 08/03/2023 12:58:35 08/08/2023 10:07:33 Human immunodeficiency virus infection 98865238 B20 ID consult prnbiktarv y (bictegrav ir, emtricitab ine & tenofovir alafenamid e) 50-200-25m g QD Asthenia 19443292 R53.1 PT/OT treat and evalwill monitor Essential hypertension 05372688 I10 amlodipine 5 mg dailywill monitor Mixed anxi ety and depressive disorder 339653252 F41.8 gabapentin 600 mg tidmirtaza pine 60 mg at hsrisperid one [facility] 1 mg dailypsych prnwill monitor Gastroesop hageal reflux disease without esophagitis 477139819 K21.9 With recent workup in hosp and PEG placed.use G tube for feedings/m edswill monitor Chronic pain 21731986 G8 9.29 gabapentin 600 mg tidtramado l 50 mg prn dailymulti ple allergies notedwill monitor and consider if needed Harmful pa ttern of use of multiple substances 558862232 F19.10 Most often cocaine per hx with overdoses notedConti nue counseling while here and encourage abstinence and outpt f/u. Asthma 433598526 J45.90 9 advair 2 puff bidalbuter ol 2 puffs q 6 hours prn wheezingMo nitor resp. status for change Viral hepatitis C 400402 07 B18.2 fu with labscurren tly stable liver enzymesmon itor Moderate protein-calorie malnutrition (weight for age 60-74 percent of standard) 881693937 E44.0 now on PEG tube with feedings at 60cc/hrRef er to trains service conductor here.Seen by in hosp, unclear why he has dysphagia and difficulty eating with work[place] [facility] e[place] eval and treat here to see if he can take po intakemoni tor Anemia 017408884 D64.9 ferrous gluconate 324 dailymonit or cbc weekly Adult fail ure to thrive syndrome 663933917 R62.7 g tube feedings and meds through g tube at 60cc/hrfai lure to thrive with supplement s in pastspeech to eval and treat, consider reintroduc ing foods when ableweight s weeklymoni tor Insomnia 668440952 G47.0 9 benedryl 25 mg qhsmonitor [id number] Leilani Romeo MD [address] [address] 08/06/2023 16:28:34 08/08/2023 11:16:44 Adult failure to thrive syndrome 561877338 R62.7 With marked wt. loss over past few months.Con tinue Jevity 1.0 or 1.2 tanya/ml at 60 ml/hr.Stil l unable to swallow, unknown reason.Con momo [employer] THERAPIST interventi ons to hopefully enable him to eat again.Cait tor wts and labs. Moderate protein-calorie malnutrition (weight for age 60-74 percent of standard) 327609510 E44.0 As above. Human immunodeficiency virus infection 97811769 B20 Last labs show zero viral load.Sam nue Biktarvy (bictegrav ir, emtricitab ine & tenofovir alafenamid e) 50-200-25m g QDF/U with ID as planned. Asthenia 97721099 R53.1 Very deconditio armen.Needs PT/OT for strengthen ing, balance, gait training, safety and function.C ontinue fall precaution s.Monitor for safety. Essential hypertension 14425758 I10 BP running low since here, should improve as nutritiona l status improves.C ontinue amlodipine 5 mg qdMonitor BP and labs. Gastroesop hageal reflux disease without esophagitis 782402083 K21.9 On no meds.I wonder if starting a PPI may help with throat pain?Monit or Chronic pain 18139169 G8 9.29 No c/o tonight.Co ntinue gabapentin 600 mg TID and tramadol 50 mg qd prnMonitor sxs. Asthma 257589695 J45.30 Asthma meds transcribe d incorrectl y on admission here.Was not put on Advair, but rather only albuterol/ budesonide prn.Will restart Advair 230/21 mcg two puffs BIDMonitor resp. status Anemia 516881285 D64.89 Not currently anemic.Con tinue ferrous gluconate 324 mg qdMonitor labs Mixed anxi ety and depressive disorder 829628650 F41.8 Mood stable.Con tinue risperidon e 3 mg qhs, mirtazapin e 60 mg qhs, and clonazepam 1 mg qd.Monitor mood.Psych consult prn. Viral hepatitis C 904349 07 B18.2 Unclear hx.LFTs WNL.F/U as outpt. Harmful pa ttern of use of multiple substances 519672630 F19.10 Most often cocaine, but sometimes other things.Mehrdad barr counseling and encourage abstinence and outpt f/u. Dysphagia 18627857 R13.1 9 Unknown etiology.C ontinue G-tube feeding as above.Cons ider ENT consult. [id number] Maryjane Glover NP [address] [address] 08/16/2023 12:26:03 08/22/2023 11:29:11 Adult failure to thrive syndrome 419345016 R62.7 With marked wt. loss over past few months.Con momoJevit y 1.5 tanya/ml at 60 ml/hr. trains service conductor following and will adjust as neededStil l unable to swallow, unknown reason.Mehrdad barr [employer] THERAPIST interventi ons to hopefully enable him to eat again.Cait tor wts and labs. Dysphagia 44431531 R13.1 9 Unknown etiology.C ontinue G-tube feeding as above.Cons ider ENT consult. Moderate protein-calorie malnutrition (weight for age 60-74 percent of standard) 802150977 E44.0 As above. Human immunodeficiency virus infection 62766095 B20 Last labs show zero viral load.Sam nueBiktarv y (bictegrav ir, emtricitab ine & tenofovir alafenamid e) 50-200-25m g QDF/U with ID as planned. Asthenia 18095449 R53.1 Very deconditio armen.Needs PT/OT for strengthen ing, balance, gait training, safety and function.C ontinue fall precaution s.Monitor for safety. Essential hypertension 11140310 I10 BP running low since here, should improve as nutritiona l status improves.a mlodipine 5 mg qdMonitor BP and labs. Gastroesop hageal reflux disease without esophagitis 685248675 K21.9 no meds.Monit or Chronic pain 07793700 G8 9.29 has mild headache todayConti nuegabapen tin 600 mg TIDtramado l 50 mg qd prnMonitor sxs. Asthma 410672395 J45.30 Asthma meds transcribe d incorrectl y on admission here.albut maddi/budes onide prn.Advair 230/21 mcg two puffs BIDMonitor resp. status Anemia 991109922 D64.89 Not currently anemic.juan carlos scales order cbc and bmp weekly h0vjevmev gluconate 324 mg qdMonitor labs Mixed anxi ety and depressive disorder 118216877 F41.8 Mood stable.ris peridone 3 mg qhsmirtaza pine 60 mg qhs,clonaz epam 1 mg qd.Monitor mood.Psych consult prn. Viral hepatitis C 722244 07 B18.2 Unclear hx.LFTs WNL.F/U as outpt. Harmful pa ttern of use of multiple substances 736940479 F19.10 Most often cocaine, but sometimes other things.Mehrdad barr counseling and encourage abstinence and outpt f/u. [id number] Maryjane Glover NP [address] [address] 08/22/2023 11:06:38 08/28/2023 14:23:57 Adult failure to thrive syndrome 655122494 R62.7 With marked wt. loss over past few months.Con momoJevit y 1.2 tanya/ml at 67ml/hr. trains service conductor following and will adjust as neededStil l unable to swallow, unknown reason.Mehrdad barr [employer] THERAPIST interventi ons to hopefully enable him to eat again.aCit tor wts and labs.08/22 trains service conductor to assess if bolus feedings can be attempted for homefamily /pt needs g tube care/teach ing for ? dc homemonito r Asthenia 54205133 R53.1 Very deconditio armen, improving every week with therapyNee ds PT/OT for strengthen ing, balance, gait training, safety and function.C ontinue fall precaution s.Monitor for safety. Dysphagia 41303047 R13.1 9 Unknown etiology.C ontinue G-tube feeding as above.Cons ider ENT consult. Anemia 273304084 D64.89 Not currently anemic.juan carlos scales order cbc and bmp weekly [id number] gluconate 324 mg qdMonitor labs Moderate protein-calorie malnutrition (weight for age 60-74 percent of standard) 268639317 E44.0 As above. Human immunodeficiency virus infection 43906120 B20 ContinueBi ktarvy (bictegrav ir, emtricitab ine & tenofovir alafenamid e) 50-200-25m g QDF/U with ID as planned. Essential hypertension 07422485 I10 BP now improving as nutritiona l status improves.1 10s-130s /60scontam lodipine 5 mg qdMonitor BP and labs. Gastroesop hageal reflux disease without esophagitis 305820628 K21.9 no meds.Monit or Chronic pain 58994432 G8 9.29 headache resolvedCo ntinuegaba pentin 600 mg TID, no pain todaytrama dol 50 mg qd prnMonitor sxs. Asthma 975179722 J45.30 Asthma meds transcribe d incorrectl y on admission here.albut maddi/budes onide prn.Advair 230/21 mcg two puffs BIDMonitor resp. status Mixed anxi ety and depressive disorder 190104886 F41.8 Mood stable and ding wellrisper idone 3 mg qhsmirtaza pine 60 mg qhs,clonaz epam 1 mg qd.Monitor mood.Psych consult prn. [id number] Maryjane Glover, [facility] [address] 08/29/2023 08:14:48 08/30/2023 19:42:34 Adult failure to thrive syndrome [id number] R62.7 With marked wt. loss over past few months.Con tinueJevit y 1.2 tanya/ml at 67ml/hr. trains service conductor following and will adjust as neededStil l unable to swallow, unknown reason.per speech eval: no eating or drinkingMo nitor wts and labs.08/22 trains service conductor to assess if bolus feedings can be attempted for homefamily /pt needs g tube care/teach ing for ? dc homemonito r110/30 awaiting trains service conductor to calculate gtube feedings and start Asthenia 20431262 R53.1 Very deconditio armen, improving every week with therapyNee ds PT/OT for strengthen ing, balance, gait training, safety and function.C ontinue fall precaution s.Monitor for safety. Dysphagia 62052940 R13.1 9 Unknown etiology.C ontinue G-tube feeding as above.Cons ider ENT consult. Anemia 385734209 D64.89 Not currently anemic.juan carlos l order cbc and bmp prn, labs stableferr ous gluconate 324 mg qdMonitor labs Moderate protein-calorie malnutrition (weight for age 60-74 percent of standard) 344249078 E44.0 As above. Human immunodeficiency virus infection 91993881 B20 ContinueBi ktarvy (bictegrav ir, emtricitab ine & tenofovir alafenamid e) 50-200-25m g QDF/U with ID as planned. Essential hypertension 85041429 I10 BP now improving as nutritiona l status improves.1 conta mlodipine 5 mg qdMonitor BP and labs. Gastroesop hageal reflux disease without esophagitis 684170946 K21.9 no meds.Monit or Chronic pain 54260574 G8 9.29 headache resolvedCo ntinuegaba pentin 600 mg TID, no pain todaytrama dol 50 mg qd prnMonitor sxs. Asthma 829170096 J45.30 Asthma meds transcribe d incorrectl y on admission here.albut maddi/budes onide prn.Advair 230/21 mcg two puffs BIDMonitor resp. status Mixed anxi ety and depressive disorder 135893316 F41.8 Mood stable and ding wellrisper idone 3 mg qhsmirtaza pine 60 mg qhs,clonaz epam 1 mg qd.Monitor mood.Psych consult prn. Neck pain 99649706 M54.2 incidental neck pain, states slept on it wrongnsg giving tyl, tramadol and gabapentin reposition neckmonito r for relief [id number] Dilia Hutchinson [address] [address] 09/07/2023 05:15:43 09/13/2023 10:39:11 Adult failure to thrive syndrome 710662647 R62.7 With marked wt. loss over past few months.Con tinueJevit y 1.2 tanya/ml at 67ml/hr. trains service conductor following and will adjust as neededStil l unable to swallow, unknown reason.Con momo CREATIVE ARTS THERAPIST interventi ons to hopefully enable him to eat again.Cait tor wts and labs.recei deborah education on gt feeds, SW working on VNA set up for [facility] GT site daily with NS and dry. apply 2x2 to sitemonito r Asthenia 64496372 R53.1 Very deconditio armen, improving every week with therapyNee ds PT/OT for strengthen ing, balance, gait training, safety and function.C ontinue fall precaution s.Monitor for safety. Dysphagia 06930035 R13.1 9 Unknown etiology.C ontinue G-tube feeding as above.Cons ider ENT consult. Anemia 458424015 D64.89 Not currently anemic.juan carlos l order cbc and bmp weekly [id number] gluconate 324 mg qdMonitor labs Moderate protein-calorie malnutrition (weight for age 60-74 percent of standard) 631389196 E44.0 As above. Human immunodeficiency virus infection 04088459 B20 ContinueBi ktarvy (bictegrav ir, emtricitab ine & tenofovir alafenamid e) 50-200-25m g QDF/U with ID as planned. Essential hypertension 93862758 I10 BP now improving as nutritiona l status improves.1 10s-130s /60scontam lodipine 5 mg qdMonitor BP and labs. Gastroesop hageal reflux disease without esophagitis 346231851 K21.9 no meds.Monit or Chronic pain 72009097 G8 9.29 headache resolvedCo ntinuegaba pentin 600 mg TID, no pain todaytrama dol 50 mg qd prnMonitor sxs. Asthma 693572931 J45.30 Asthma meds transcribe d incorrectl y on admission here.albut maddi/budes onide prn.Advair 230/21 mcg two puffs BIDMonitor resp. status Mixed anxi ety and depressive disorder 402170433 F41.8 Mood stable and ding wellrisper idone 3 mg qhsmirtaza pine 60 mg qhs,clonaz epam 1 mg qd.Monitor mood.Psych consult prn. [id number] Maryjane Glover NP [address] [address] 09/12/2023 18:08:08 09/14/2023 11:17:17 Adult failure to thrive syndrome 506648680 R62.7 With marked wt. loss over past few months.Con tinueosmol ite 1.2 tanya/ml 410 cc qid bolus tube feedings Still unable to swallow, unknown reason, however eating and drinking in room with asp risk, will do FEES test on order cxr tomorrow to rule out pna with riskMonito r wts and labs. (needs weight foster)receiv ed education on gt feeds, SW working on VNA set up for DC, scripts givenclean se GT site daily with NS and dry. apply 2x2 to sitemonito r Asthenia 57602155 R53.1 Very deconditio armen, improving every week with therapyNee ds PT/OT for strengthen ing, balance, gait training, safety and function.C ontinue fall precaution s.Monitor for safety. Dysphagia 77144517 R13.1 9 Unknown etiology.C ontinue G-tube bolus feeding as above.FEES test on Sundayne s cxr to rule out pna from foods and drinks in room despite recommenda tionConsid er ENT consult. Moderate protein-calorie malnutrition (weight for age 60-74 percent of standard) 065005570 E44.0 As above. Human immunodeficiency virus infection 52246475 B20 ContinueBi ktarvy (bictegrav ir, emtricitab ine & tenofovir alafenamid e) 50-200-25m g QDF/U with ID as planned. Essential hypertension 77224399 I10 BP now improving as nutritiona l status improves.1 10s-130s /60scontam lodipine 5 mg qdMonitor BP and labs. Asthma 184970897 J45.30 no wheezing noted on exam, stablealbu terol/bude sonide prn.Advair 230/21 mcg two puffs BIDMonitor resp. status Mixed anxi ety and depressive disorder 768791150 F41.8 Mood stable and ding wellrisper idone 3 mg qhsmirtaza pine 60 mg qhs,clonaz epam 1 mg qd.Monitor mood.Psych consult prn. [id number] MAURO DUFFY NP [address] [address] 09/18/2023 08:57:08 09/25/2023 10:49:09 Adult failure to thrive syndrome 109552082 R62.7 With marked wt. loss over past few months due to difficulty swallowing .[place] [facility]Contin ue osmolite 1.2 tanya/ml 410 cc qid bolus tube feedings upon d/c home.Seen by [employer]IVE [employer]S THERAPIST - now on puree diet with thin liquids - may continue at homeContin ue to monitor weights and intake at home Asthenia 42148962 R53.1 Improved, meeting rehab goals for d/c home today with support of services.C ontinue fall precaution s.Monitor for safety as outpt. Dysphagia 93416134 R13.1 9 Unknown etiology.S ee [facility] w on pureed diet, thin liquidsMon itor intake, s/s aspiration as outpt. Moderate protein-calorie malnutrition (weight for age 60-74 percent of standard) 466474518 E44.0 As above. Human immunodeficiency virus infection 72512772 B20 ContinueBi ktarvy (bictegrav ir, emtricitab ine & tenofovir alafenamid e) 50-200-25m g QDF/U with ID as planned. Essential hypertension 73971155 I10 continue amlodipine 5 mg qdMonitor BP as outpt. Asthma 428824196 J45.30 no wheezing noted on exam, stablecont inue Advair 230/21 mcg two puffs BID and albuterol/ budesonide prn.Monito r resp. status as outpt. Mixed anxi ety and depressive disorder 325009510 F41.8 Mood stable and doing wellContin ue home medsrisper idone 3 mg qhsmirtaza pine 60 mg qhsclonaze david 1 mg qdMonitor mood, behaviors as outpt. Chronic pain 77127856 G8 9.29 continue gabapentin 600 mg tid, ultram 50 mg qd prnmonitor asoutpt. Anemia 119387146 D64.89 remains on daily FeMonitor CBC,s/s active bleeding Health Concerns Section Related Observation LastModified by Organization Detai ls LastModified Time None Recorded Concern Status LastModified by Organization Details LastModified Time None Recorded Advance Directives Directive Y: Payers Encounter Date Sequence Insurance Name Policy Number Policy Perry Covered Member ID Perry Member ID Guarantor Name 08/22/2023 1 [facility] [employer] [employer] - DOS ON OR AFTER 2022 - MEDICARE [place]AGE [place]AC[place]/ADV ANTAGE - PPO) [facility] [id number] [facility] 08/29/2023 1 [facility] - DOS ON OR AFTER 2022 - [place]/ADV ANTAGE - PPO) [facility] [id number] [facility] 09/07/2023 1 [facility] [employer] - DOS ON OR AFTER 2022 - [place]/ADV ANTAGE - PPO) [facility] [id number] [facility] 09/12/2023 1 [facility] - DOS ON OR AFTER 2022 - [place]/ADV ANTAGE - PPO) [facility] [id number] [facility] 09/18/2023 1 [facility] [employer] - DOS ON OR AFTER 2022 - [place]IC[place]/ADV ANTAGE - PPO) [facility] [id number] [facility] Date Note Type Note Provider Name [...] other concerns. Note: He was admitted to [facility] for similar concerns earlier this month [...] code signed 01/17/23 Maryjane Glover NP [address] [facility], [address], [place], [address], [facility] [employer] 08/22/2023 11:24:08 08/29/2023 text/html Patient seen for an 30 routine rounding visit. Past medical history significant for HIV, history of hep C, depression, asthma, history lung abscess 2020, fall, several overdoses noted in hx. dysphagia seen for difficulty swallowing ultimately diagnosed with failure to thrive and PEG tube placed. Benjamin was admitted to [facility] for difficulty swallowing and underwent EGD [...] hospital to rehab. While here at [facility]: Pt is 107.6 lbs and this [...] disconnect his feedings without difficulty here. Awaiting trains service conductor to calculate bolus feedings and start them [...] code signed 01/17/23 Maryjane Glover NP [address] [facility], [address], [place], [address], [email or web address] 08/29/2023 13:39:07 09/07/2023 text/html Patient seen for [...] other concerns. Note: He was admitted to [facility] for similar concerns earlier this month [...] Full code signed 01/17/23 Dilia lloyd [address] [facility], [address], [place], [address], [email or web address] 09/07/2023 13:21:25 09/12/2023 text/html Patient seen for [...] code signed 01/17/23 Maryjane Glover, LADAN [address] [facility], [address], [place], [address], [facility] [employer] [facility] 09/12/2023 19:33:00 09/18/2023 text/html Benjamin is seen t heidy for discharge. He is going home today with support of services. He is a 58 yo man admitted to [facility] 08/02/23 from [facility] [place] continued care and rehab after a hospitalization related to malnutrition and FTT.He presented to [facility] 07[place] reporting throat pain and the inability to swallow.Swallowing issues problematic prior to this presentation, had EGD with Dr. Dodson 07/17, results c/w mild candidiasis normal stomach and duodenum. He was also seen by CREATIVE ARTS THERAPIST, diet changed to NND1 and nectar thick liquid. Due to ongoing swallowing issues at home, he returned to [facility].A g-tube was placed on 07/30, cause of dysphagia unclear. Kept NPO, and sent here for rehab. While here, Benjamin has done well.Worked with PT/OT, meeting goals for d/c home.Also worked with CREATIVE ARTS THERAPIST and trains service conductor - now tolerating puree diet with thin [...] also, possibly inadvertently). MAURO DUFFY NP [address] [facility], [address], [place], [address], [facility] 09/18/2023 09:47:21
== END 2025-01-20 10:39 | disposition home or self-care (01) ==
LOC: HO.ENCR 09:47
PROVIDERS: PCP Student in an Organized Health Care Education/Training Program; Visit Provider Student in an Organized Health Care Education/Training Program
DX: M81.0 Age-related osteoporosis without current pathological fracture (principal)

== ENCOUNTER → 2025-01-20 09:47 | Outpatient (BNVA) | payer OTHER, SELFPAY | PROVIDERS: PCP Student in an Organized Health Care Education/Training Program; Visit Provider Student in an Organized Health Care Education/Training Program | DX: M81.0 Age-related osteoporosis without current pathological fracture (principal) | CPT/HCPCS: 96372; J3111 ==

== ENCOUNTER 2025-01-27 11:09 | Inpatient (IN) | payer OTHER, SELFPAY ==
[2025-01-27] VITALS (7 sets, daily range): BP systolic 106–129; BP diastolic 67–89; PULSE 85–99; RESP 15–25; TEMP 36.3–36.8; O2SAT 90–97; BMI 24.2
--- NOTE | 2025-01-27 | ECG_ITS ---
Test Reason : CHEST PAIN Blood Pressure : */* mmHG Vent. Rate : 98 BPM Atrial Rate : 98 BPM P-R Int : 154 ms QRS Dur : 102 ms QT Int : 374 ms P-R-T Axes : 60 72 39 degrees QTcB Int : 477 ms Normal sinus rhythm Possible Left atrial enlargement Incomplete right bundle branch block Borderline ECG When compared with ECG of 27-Jan-2025 11:21, Criteria for Anterior infarct are no longer Present T wave inversion no longer evident in Inferior leads Referred By: Julio Ji Electronically Signed By: Daniel Keller
--- NOTE | ~2025-01-27 | XR_ITS ---
EXAMINATION: XR CHEST CLINICAL INFORMATION: sternal chest pain COMPARISON: July 21, 2024. TECHNIQUE: 2 views of the chest were obtained. FINDINGS: Prominence of the interstitial markings. No hyperinflation. No gross consolidation pleural effusion or pneumothorax. Cardiomediastinal silhouette size is normal. S-shaped curvature of the thoracic spine which could be positional. Osteopenia versus osteoporosis. Multilevel thoracic spondylosis. 30% volume loss in the vertebral bodies of the mid thoracic spine likely old. XR/XR chest 2V IMPRESSION: No acute airspace disease. Electronically signed by: Tyrone Dias MD 01/27/2025 12:19 PM EDT
--- NOTE | 2025-01-27 11:15 | ECG_ITS ---
Test Reason : CHEST PAIN Blood Pressure : */* mmHG Vent. Rate : 100 BPM Atrial Rate : 100 BPM P-R Int : 146 ms QRS Dur : 94 ms QT Int : 338 ms P-R-T Axes : 76 72 9 degrees QTcB Int : 436 ms Normal sinus rhythm Incomplete right bundle branch block Anterior infarct , age undetermined T wave abnormality, consider inferior ischemia Abnormal ECG When compared with ECG of 07-May-2024 12:54, Vent. rate has increased by 37 bpm Anterior infarct is now Present Non-specific change in ST segment in Anterior leads T wave inversion now evident in Inferior leads Referred By: Generic ED Physician Electronically Signed By: Daniel Keller
[2025-01-27 11:45] LABS: MANUAL DIFF FLAG NO
[2025-01-27 11:48] LABS: Basophils Percent Auto 0.6 % (0-2); Eosinophils Absolute Auto 0.1 X10*3/uL (0.0-0.4); Eosinophils Percent Auto 0.9 % (0-4); Hematocrit 47.4 % (42.0-52.0); Hemoglobin 16.7 g/dl (14.0-18.0); Imm Gran Abs Auto 0.03 X10*3/uL (0.00-0.03); Imm Gran Pct Auto 0.5 % (0.0-0.4); Lymphocytes Absolute Auto 1.2 X10*3/uL (1.2-4.9); Lymphocytes Percent Auto 18.3 % (20-40); Mean Corpuscular HGB Conc 35.2 g/dl (31.0-36.0); Mean Corpuscular Hemoglobin 33.3 pg (27.0-33.0); Mean Corpuscular Volume 94.4 fL (80.0-98.0); Mean Platelet Volume 10.8 fL (9.4-12.4); Monocytes Absolute Auto 0.6 X10*3/uL (0.1-1.2); Monocytes Percent Auto 9.5 % (2-11); Neutrophils Absolute Auto 4.6 x10*3/uL (2.0-8.3); Neutrophils Percent Auto 70.2 % (45-73); Platelet Count 178 X10*3/uL (160-400); Red Blood Count 5.02 X10*6/uL (4.60-5.80); Red Cell Distribution Width 13.5 % (11.0-16.0); White Blood Count 6.6 X10*3/uL (4.8-10.8)
--- NOTE | 2025-01-27 11:48 | ED_ITS ---
HPI - Chest Pain General Chief Complaint: Chest Pain Stated Complaint: Chest pain, SOB Time Seen by Provider: 01/27/25 11:42 Source: patient, family ( MANUFACTURING QUALITY MANAGER), old records reviewed and product management consultant Mode of arrival: ambulatory Limitations: no limitations History of Present Illness ED Provider: DR. Younger HPI narrative: 59-year-old male with PMH of chronic respiratory failure with hypoxia on home oxygen, pleural effusion, s/p decortication, HFrEF with EF of 40-45%, HIV on heart, s/p G-tube, hepatitis-C, mood disorder came in for evaluation of chest tightness and shortness of breath with nonproductive cough symptoms started since yesterday. Related Data Home Medications ?Medication ?Instructions ?Recorded ?Confirmed calcium 600 mg (as 1 tab feeding tube BID@1200,1800 12/16/23 10/17/24 carbonate)-vitamin D3 20 mcg (800 unit) tablet ferrous gluconate 324 mg (38 mg 324 mg feeding tube BID 12/16/23 10/17/24 iron) tablet risperidone 3 mg tablet 3 mg feeding tube BEDTIME 12/16/23 10/17/24 omeprazole 10 mg capsule,delayed 10 mg feeding tube DAILY@0630 PRN 01/10/24 10/17/24 release Acid Reflux albuterol sulfate 90 mcg/actuation 2 puff inhalation Q6H PRN wheezing 03/07/24 10/17/24 aerosol inhaler (Ventolin HFA) amlodipine 5 mg tablet 5 mg PO DAILY 04/14/24 10/17/24 megestrol 625 mg/5 mL (125 mg/mL) 5 ml feeding tube DAILY 04/14/24 10/17/24 oral suspension diphenhydramine HCl 25 mg capsule 50 mg PO BEDTIME 05/07/24 10/17/24 (Benadryl) propranolol 120 mg capsule,24 120 mg PO DAILY 05/07/24 10/17/24 hr,extended release somatropin 6 mg subcutaneous 6 mg subcut DAILY 05/07/24 10/17/24 solution (Serostim) Previous Rx's ?Medication ?Instructions ?Recorded bictegravir 50 mg-emtricitabine 1 tab PO DAILY #14 tabs 08/02/23 200 mg-tenofovir alafenam 25 mg tablet (Biktarvy) mirtazapine 30 mg tablet 60 mg (2 x 30 mg) feeding tube 08/02/23 BEDTIME #20 tabs clonazepam 1 mg tablet 1 mg feeding tube DAILY #10 tabs 03/20/24 tramadol 50 mg tablet 50 mg feeding tube BID PRN Pain 03/20/24 (Scale Score 7-10) #20 tabs lorazepam 2 mg/mL oral concentrate See Rx Instructions .Route 05/07/24 (Lorazepam Intensol) .COMPLEX #30 mL romosozumab-aqqg 210 mg/2.34 210 mg (2.34 mL) subcut .once a 10/17/24 mL(105 mg/1.17 mL x2)subcutaneous month #2.34 mL syringe (Evenity) dexamethasone 1 mg tablet 1 mg PO DAILY #1 tab 11/28/24 tamsulosin 0.4 mg capsule (Flomax) 0.4 mg PO BEDTIME 30 days #30 caps 12/17/24 Allergies Allergy/AdvReac Type Severity Reaction Status Date / Time Seasonal Allergies Allergy Intermediate Eye Verified 01/27/25 11:32 Drainage codeine Allergy Mild Rash Verified 01/27/25 11:32 [From Tylenol-Codeine #3] levofloxacin [From Levaquin] Allergy Mild Rash Verified 01/27/25 11:32 metoclopramide [From Reglan] Allergy Mild Rash Verified 01/27/25 11:32 acetaminophen Allergy Unknown Rash Verified 01/27/25 11:32 [Tylenol-Codeine #3] Penicillins [PENICILLINS] Allergy Unknown Rash Verified 01/27/25 11:32 ibuprofen [From Motrin] AdvReac Unknown Reflux Verified 01/27/25 11:32 Review of Systems 2 Review of Systems: All other systems are reviewed and are negative Constitutional: Reports as per HPI and Reports no additional constitutional complaints Eyes: Reports as per HPI and Reports no additional eye complaints Reports system reviewed and no additional complaints, except as documented Cardiovascular: Reports as per HPI and Reports no additional cardiovascular complaints Respiratory: Reports as per HPI and Reports no additional respiratory complaints Gastrointestinal: Reports as per HPI and Reports no additional gastrointestinal complaints Genitourinary: Reports no additional female genitourinary complaints Musculoskeletal: Reports no additional musculoskeletal complaints Skin/Breast: Reports system reviewed and no additional complaints, except as docu Psychiatric: Reports no additional psychiatric complaints Endocrine: Reports no additional endocrine complaints Hematologic/Lymphatic: Reports no additional hematologic/lymphatic complaints Allergic/Immunologic: Reports no additional allergic/immunologic complaints Reports system reviewed and no additional complaints, except as documented and Reports Abnormal speech present [facility] Past Medical History Medical History Lower urinary tract symptoms Hypogonadism in male Low serum cortisol level Adrenal hyperplasia Osteoporosis Height loss HIV (human immunodeficiency virus infection) Asthma Dysphagia Adult failure to thrive Adult failure to thrive Multiple rib fractures History of empyema of pleura (01/05/23) Hypertension Closed fracture of leg Hepatitis C Kidney stones Pleuritic chest pain Pneumonia Substance abuse Hemorrhoids Depression HIV (human immunodeficiency virus infection) Asthma Surgical History H/O hemorrhoidectomy Family History Family History Maternal Grandmother Lung cancer Maternal Aunt Lung cancer Mother Lung cancer Social History Social History Household Members: Caregiver Household Members Other:: lives with MANUFACTURING QUALITY MANAGER Housing: Apartment Do you presently have visiting nurse or other home services: Yes Alcohol intake: never Patient Tobacco Use Status: Former Tobacco user Tobacco use type: Cigarette e-Cigarette/Vaping Use: Never Used Second Hand Smoke Exposure: No Substance Use Type: Crack/Cocaine Advance Directives: Yes Advance Directives on File: Yes Advance Directives Date on File: 04/25/21 service: No Current occupational status: disabled Gender identity: Male Physical Exam 2 Vital Signs: Vital Signs: Last Vital Signs Temp 97.6 F 01/27/25 12:48 Pulse 92 01/27/25 13:02 Resp 22 H 01/27/25 13:02 BP 128/87 01/27/25 12:48 Pulse Ox 94 01/27/25 12:48 O2 Del Method Room Air 01/27/25 12:48 BMI result Body Mass Index 24.2 Vital signs have been reviewed and appear to be correct. Blood pressure elevated. Heart rate normal. Respiratory rate normal. Temperature normal. Oxygen saturation normal. Appearance: Alert. Oriented X3. No acute distress. Head: Normal external exam. Normocephalic. Atraumatic. No [place] signs noted. No raccoon eyes noted Eyes: PERRLA. EOMI. Conjunctiva and sclera normal. Eyelids normal. ENT: TM's Normal. Pharynx normal. Uvula midline. Moist mucous membranes. No trismus noted. No drooling noted. No muffled voice noted. Neck: Normal inspection. Neck supple. FROM. No adenopathy. Thyroid Normal. No meningeal signs. No neck mass noted. CVS: Normal heart rate and rhythm. Heart sound normal. No murmurs noted. Pulses normal throughout. Respiratory: No respiratory distress. Painless inspiration. Breath sounds normal. No wheezes/rales/rhonchi noted. Chest nontender. No accessory muscle usage noted or decreased air movement noted. Abdomen: Soft and nontender. Bowel sounds normal in all 4 quadrants. No distention noted. No organomegaly noted. No visible injury noted. Back: No CVA tenderness. Full range of motion noted. Skin: Skin warm and dry. Normal skin color. Normal skin turgor. No rashes/lesions/lacerations noted. Extremities: No lower extremity edema. Extremities exhibit normal range of motion. Extremities nontender. Neuro: Oriented X 3. Cranial nerve exam: II-XII are grossly intact No motor deficit. No sensory deficit. Reflexes normal. Course Reevaluation(s) Reevaluation #1: Chest pain, chest tightness, shortness of breath, acute asthma exacerbation. will admit to hospitalist service. Time: 14:48 Medications Administered Discontinued Medications Generic Name Dose Route Start Last Admin Trade Name Freq PRN Reason Stop Dose Admin Albuterol Sulfate 2.5 mg/ 0 mg 01/27/25 12:54 01/27/25 12:59 Albuterol/Ipratropium 3 ml INHALE 01/27/25 12:55 5 dose ONCE ONE Administration Magnesium Sulfate 2 gm in 50 mls @ 25 mls/hr 01/27/25 12:46 01/27/25 13:01 Magnesium Sulfate/H2o IV 01/27/25 14:45 25 mls/hr ONCE ONE Administration Methylprednisolone Sodium Succinate 125 mg 01/27/25 12:46 01/27/25 13:01 Methylprednisolone Sod Succ 125 Mg Vial IVPUSH 01/27/25 12:47 125 mg ONCE ONE Administration Medical Decision Making Differential Diagnosis Differential Diagnoses: The differential diagnosis associated with the presentation includes ( Pneumonia, pneumothorax, pleural effusion, CHF, asthma exacerbation, acute respiratory failure.) Admission/Observation Consideration of admission/observation: Escalation of care including admission/observation considered Consult Healthcare Provider Management of the patient was discussed with: Hospitalist ( Dr. Aparicio) Lab Data MDM Lab Attestation statement: I reviewed the patient's lab results. 01/27/25 11:40 01/27/25 12:40 Labs: Lab Results 01/27/25 01/27/25 01/27/25 Range/Units 11:39 11:40 12:40 WBC 6.6 (4.8-10.8) X10*3/uL RBC 5.02 (4.60-5.80) X10*6/uL Hgb 16.7 (14.0-18.0) g/dl Hct 47.4 (42.0-52.0) % MCV 94.4 (80.0-98.0) fL MCH 33.3 H (27.0-33.0) pg MCHC 35.2 (31.0-36.0) g/dl RDW 13.5 (11.0-16.0) % Plt Count 178 (160-400) X10*3/uL MPV 10.8 (9.4-12.4) fL Immature Gran % (Auto) 0.5 H (0.0-0.4) % Neut % (Auto) 70.2 (45-73) % Lymph % (Auto) 18.3 L (20-40) % [place] % (Auto) 9.5 (2-11) % Eos % (Auto) 0.9 (0-4) % Baso % (Auto) 0.6 (0-2) % Lymph # (Auto) 1.2 (1.2-4.9) X10*3/uL [place] # (Auto) 0.6 (0.1-1.2) X10*3/uL Eos # (Auto) 0.1 (0.0-0.4) X10*3/uL Baso # (Auto) 0.0 (0.0-0.2) X10*3/uL Abs Immat Gran (auto) 0.03 (0.00-0.03) X10*3/uL Absolute Neuts (auto) 4.6 (2.0-8.3) x10*3/uL Absolute Nucleated RBC 0.000 (0.0-0.012) X10*3/uL Nucleated RBC % (auto) 0.0 (0.0-0.2) /100WBC Hold Blue Top SEE NOTE VBG pH (7.32-7.43) VBG pCO2 mmHg VBG pO2 mmHg VBG HCO3 (22-26) mmol/L VBG O2 Saturation % VBG Base Excess mmol/L Sodium Cancelled 141 Potassium Cancelled 3.6 Chloride Cancelled 111 H Carbon Dioxide Cancelled 23 Anion Gap Cancelled 11 L BUN Cancelled 12 Creatinine Cancelled 0.98 Estim Creat Clear Calc Cancelled 72.3 Estimated GFR Cancelled > 60 Random Glucose Cancelled 106 Calcium Cancelled 9.3 D Magnesium Cancelled 2.1 Total Bilirubin Cancelled 0.9 AST Cancelled 39 H ALT Cancelled 78 H Alkaline Phosphatase Cancelled 106 Troponin I High Sens 3.0 (<3.5-35.0) ng/L B-Natriuretic Peptide < 10 (<100) pg/mL Total Protein Cancelled 7.4 Albumin Cancelled 4.3 Lipase Cancelled 7 L Influenza Type A (PCR) NEGATIVE (Negative) Influenza Type B (PCR) NEGATIVE (Negative) RSV RNA Qual (PCR) NEGATIVE (Negative) SARS-CoV-2 RNA (RT-PCR) NEGATIVE (Negative) 01/27/25 Range/Units 12:46 WBC (4.8-10.8) X10*3/uL RBC (4.60-5.80) X10*6/uL Hgb (14.0-18.0) g/dl Hct (42.0-52.0) % MCV (80.0-98.0) fL MCH (27.0-33.0) pg MCHC (31.0-36.0) g/dl RDW (11.0-16.0) % Plt Count (160-400) X10*3/uL MPV (9.4-12.4) fL Immature Gran % (Auto) (0.0-0.4) % Neut % (Auto) (45-73) % Lymph % (Auto) (20-40) % [place] % (Auto) (2-11) % Eos % (Auto) (0-4) % Baso % (Auto) (0-2) % Lymph # (Auto) (1.2-4.9) X10*3/uL [place] # (Auto) (0.1-1.2) X10*3/uL Eos # (Auto) (0.0-0.4) X10*3/uL Baso # (Auto) (0.0-0.2) X10*3/uL Abs Immat Gran (auto) (0.00-0.03) X10*3/uL Absolute Neuts (auto) (2.0-8.3) x10*3/uL Absolute Nucleated RBC (0.0-0.012) X10*3/uL Nucleated RBC % (auto) (0.0-0.2) /100WBC Hold Blue Top VBG pH 7.43 (7.32-7.43) VBG pCO2 35 mmHg VBG pO2 47 mmHg VBG HCO3 23 (22-26) mmol/L VBG O2 Saturation 76.0 % VBG Base Excess 0.1 mmol/L Sodium Potassium Chloride Carbon Dioxide Anion Gap BUN Creatinine Estim Creat Clear Calc Estimated GFR Random Glucose Calcium Magnesium Total Bilirubin AST ALT Alkaline Phosphatase Troponin I High Sens (<3.5-35.0) ng/L B-Natriuretic Peptide (<100) pg/mL Total Protein Albumin Lipase Influenza Type A (PCR) (Negative) Influenza Type B (PCR) (Negative) RSV RNA Qual (PCR) (Negative) SARS-CoV-2 RNA (RT-PCR) (Negative) Independent Interpretation I performed an independent interpretation of an: Plain X-Ray ( chest: No acute airspace disease.) Radiology Impression Discussion of test interpretation with radiology: I have reviewed the radiologist's reading. Discharge Plan Discharge Clinical Impression: Asthma exacerbation Patient Disposition: Admitted As Inpatient Print Language: Thai
[2025-01-27 12:10] LABS: B Type Natriuretic Peptide < 10 pg/mL (<100)
[2025-01-27 12:54] LABS: Venous Blood Gas Refer to POC result
[2025-01-27 12:55] LABS: VBG Base Excess 0.1 mmol/L; VBG HCO3 23 mmol/L (22-26); VBG pCO2 35 mmHg; VBG pH 7.43 (7.32-7.43); VBG pO2 47 mmHg
[2025-01-27 12:57] LABS: Influenza A PCR NEGATIVE (Negative); Influenza B PCR NEGATIVE (Negative); Resp Syncy Virus RNA Qual PCR NEGATIVE (Negative); SARS COV2 PCR INHOUSE NEGATIVE (Negative)
[2025-01-27] MEDS: Albuterol Sulfate 2.5 MG, Albuterol/Iprat 2.5/0.5MG 3 ML 3 ML INHALE (12:59)
[2025-01-27] MEDS: Magnesium Sulfate/H2O 2 GM/50 ML PIGGYBACK IV (13:01)
[2025-01-27 13:05] LABS: Alanine Aminotransferase 78 U/L (0-40); Albumin Level 4.3 g/dL (3.5-5.0); Alkaline Phosphatase 106 U/L (39-117); Anion Gap 11 (12-20); Aspartate Amino Transferase 39 U/L (5-37); Bilirubin Total 0.9 mg/dL (0.0-1.0); Blood Urea Nitrogen 12 mg/dL (9-16); Calcium 9.3 mg/dL (8.4-10.2); Carbon Dioxide 23 mmol/L (22-29); Chloride 111 mmol/L (96-108); Creatinine Clr Calc Pharmacy 72.3; Estimated Glomerular Filt Rate > 60; Glucose Random 106 mg/dL (60-115); Lipase 7 U/L (8-78); Magnesium 2.1 mg/dL (1.6-2.6); Potassium 3.6 mmol/L (3.3-5.1); Sodium 141 mmol/L (135-145); Total Protein 7.4 g/dL (6.5-8.0)
--- OUTSIDE RECORDS SUMMARY | 2025-01-27 14:18 | XMS_ITS | Data Portability ---
Author Organization [employer] [facility], [place] in - [employer] Address [address] [place] [id number] Care Team Providers Care Supervisor Pairing And Inspecting Name Role Phone HIM [facility] OTHER [facility] OTHER Assessment No assessment recorded. Plan of [...] Not available Not available Not available 07/08/2024 [id number] RxNorm Not Available [facility] - production 4 [...] SNOMED-CT Code Diagnosis ICD10 Code Diagnosis Note [id number] ERLINDA HOLLIDAY MD Main - [facility] [address] [place] [phone] 03/06/2024 16:50:44 03/07/2024 17:38:50 Lethargy [id number] R53.83 Evaluation in the field was performed by my oracle agile pl[employer] consultant colleague. As noted above, I provided real-time [...] He is afebrile. Per discussion with the oracle agile plm consultant, the patient looked lethargic, walked with an [...] n. The patient was transferre d to [facility] for further evaluation and treatment. His PCP was informed of the transfer to the ED. Primary care, consider__ _ Dispositio n:[facility] Health Concerns Section Related Observation LastModified by Organization Jazzy ls LastModified Time None Recorded Concern Status LastModified by Organization Details LastModified Time None Recorded Advance Directives Directive None Recorded Payers Insurance Date Sequence Insurance Name Policy Number Policy Perry Covered Member ID Perry Member ID Guarantor Name 05/14/2024 1 [facility] - DOS ON OR AFTER 2022 - DUAL ELIGIBLE - CORRECTION OPTIONS AND ONE CARE (MEDICARE REPLACEMENT/ADV ANTAGE - HMO) Benjamin Juan David [id number] [facility] Juan David Notes Date Note Type Note [...] ................. ................. ................. ................. ................. ................. ..... Meters Superintendent Note From Francisco Ley: Dispatched to above address for headache sore throat. On arrival patient met SC[facility] at the door. Initially patient denied calling for medical help or having any symptoms. WA8 confirmed patient name and address, after this [...] focus on current situation, poor affect, lethargic. [facility] contacted, spoke with Dr. Holliday, advised of patient complaints and exam findings. [facility] agreed further evaluation in the ER is necessary for this patient. Patient agreed to this. Patients neighbor who assists patient arrived to check on him. She reports this doesn't seem like his normal mentation but cannot be sure. 911 called. [place] ambulance responded. Verbal report given to [place] Meters Superintendent. [place] oracle [employer] consultant took over patient care. Nm8 clear. [facility]. ................. ................. ................. ................. ................. ................. ................. ................. ..... Disposition: Shahzad HOLLIDAY MD [address] [facility],[address], [place], [phone], [place] KEERTHI BLOCK 03/06/2024 18:02:19
--- OUTSIDE RECORDS SUMMARY | 2025-01-27 14:18 | XMS_ITS | Data Portability ---
Author Organization [facility], Main Office Address [address] [place] [address] Assessment No assessment recorded. Plan of Treatment Reminders Order Date Submit Date Provider Last Modified By Organization Details Last Modified Time Details Appointments RESEARCH FOLLOW UP 2024 10:00A Wilmer Street MD Not available Not available Not available B20 FOLLOW UP 2024 10:40A Wilmer [address] MD Not available Not available Not available Lab None recorded . Referral None recorded . Procedures None recorded . Surgeries None recorded . Imaging electroc ardiogra m 2023 024 cheryl Main Office, [address] [place] [address], [address], 07/15/2024 15:47:38 Medication Orders clotrima zole 10 mg klaudia 2024 025 [facility]/Pharmacy #[id number], [address] [place], [address], 12/30/2024 16:32:25 Biktarvy 50 mg-200 mg-25 mg tablet 2024 025 [facility]/Pharmacy #2071, [address] [place], [address], 12/30/2024 16:32:25 clotrima zole 10 mg klaudia 2024 025 [facility]/Pharmacy #2071, [address] [place], [address], 11/25/2024 13:20:54 Benadryl 25 mg capsule 2024 025 [facility]/Pharmacy #2071, [address] [place], [address], 11/25/2024 13:20:55 Biktarvy 50 mg-200 mg-25 mg tablet 2024 025 [facility]/Pharmacy #2071, [address] [place], [address], 11/25/2024 13:20:54 clotrima zole 10 mg klaudia 2024 025 [facility]/Pharmacy #2071, [address] [place], [address], 10/21/2024 14:29:45 Biktarvy 50 mg-200 mg-25 mg tablet 2024 025 [facility] [address] [place], [address], 10/21/2024 14:30:45 Patient TargetsNo targets recorded. Patient Instructions Encounter Date Encounter Id Patient Instructions Last Modified By Organization Details Last Modified Time 10/21/2024 [id number] Clotrimazole Oral Lozenge (CLOTRIMAZOLE LOZENGE - MUCOUS MEMBRANE (ORAL)) [email or web address] Not available 10/21/2024 14:29:44 Reason for Referral None Reported. Results Created Date Observation Date Name Description Value Unit Range Abnormal Flag Note LastModifiedBy Organization Detail LastModifiedTime 06/18/2006/04/2024 US, abdom en, compl ete No observ ation record ed. [email or web address] [place], [address], 06/18/2024 11:12:25 07/15/20 24 07/15/2024 elect rocar diogr am No observ ation record ed. [email or web address] Main Office [address] [place], [address], 07/15/2024 17:12:05 07/17/20 elect rocar diogr am No observ ation record ed. [email or web address] Main Office [address] [place], [address], 07/17/2024 14:15:04 Result Notes None recorded. Problems Name Problem SNOMED Code Status Onset Date Resolution Date Notes Provider Name and Address Organization Details Recorded Time Asthma 495468252 Active 2006 Asthma; snomeddesc ription: Asthma; Report Immunity to Registry: Yes; Asthma; Report Immunity to Registry: Yes; ReasonDate : 10/13/2019 ; ; Start Date : 10/13/2019 Asthma; snomeddesc ription: Asthma; Report Immunity to Registry: Yes; Not Available [facility] 4 06:58:53 Male hypogonad ism 65922688 Active 2012 Male hypogonadi sm; snomeddesc ription: Male hypogonadi sm; Report Immunity to Registry: Yes; Not Available [facility] 4 06:58:53 Diarrhea 18145155 Active 2006 Diarrhea; snomeddesc ription: Diarrhea; Report Immunity to Registry: Yes; Diarrhea, unspecifie d; snomeddesc ription: Diarrhea; Report Immunity to Registry: Yes; Not Available [facility] 4 06:58:53 Substance abuse 00152426 Active 2006 Substance abuse; snomeddesc ription: Substance abuse; Report Immunity to Registry: Yes; Notes: opiate/suad jolene/benzo ; Not Available [facility] 4 06:58:53 Human immunodef iciency virus infection 58454129 Active 1991 Human immunodefi ciency virus [HIV] disease; snomeddesc ription: Human immunodefi ciency virus infection; Report Immunity to Registry: Yes; Human immunodefi ciency virus infection; snomeddesc ription: Human immunodefi ciency virus infection; Report Immunity to Registry: Yes; Not Available [facility] 4 06:58:53 Steatotic liver disease 996200870 Active 2006 Steatosis of liver; snomeddesc ription: Steatosis of liver; Report Immunity to Registry: Yes; Notes: u/s 2021; Fatty (change of) liver, not elsewhere classified ; snomeddesc ription: Steatosis of liver; Report Immunity to Registry: Yes; Notes: u/s 2021; Not Available [facility] 4 06:58:53 Herpesvir us infection 85828189 Active 2009 Herpesvira l infection, unspecifie d; snomeddesc ription: Herpes simplex; Report Immunity to Registry: Yes; Notes: HSV 1 pos serology; HSV 2 neg serology; Not Available [facility] 4 06:58:53 Fibromyos itis 12335940 Active 2006 Myalgia and myositis, unspecifie d; snomeddesc ription: Fibromyalg ia; Report Immunity to Registry: Yes; Notes: Chronic pain multiple/c hronic back pain; Not Available [facility] 4 06:58:53 Herpes simplex 02083320 Active 2009 Herpes simplex; snomeddesc ription: Herpes simplex; Report Immunity to Registry: Yes; Notes: HSV 1 pos serology; HSV 2 neg serology; Not Available [facility] 4 06:58:54 Kidney stone 21007213 Active 2001 Calculus of kidney; snomeddesc ription: Kidney stone; Report Immunity to Registry: Yes; Kidney stone; snomeddesc ription: Kidney stone; Report Immunity to Registry: Yes; Not Available [facility] 4 06:58:54 History of calculus of kidney 397046157 Active 2001 History of calculus of kidney; snomeddesc ription: History of calculus of kidney; Report Immunity to Registry: Yes; Not Available [facility] 4 06:58:54 Type B viral hepatitis 75429763 Active 2006 Type B viral hepatitis; snomeddesc ription: Type B viral hepatitis; Report Immunity to Registry: Yes; Notes: core ab pos; s ag neg; s ab neg HBV vL nondetecte d 2016; 2017; Not Available [facility] 4 06:58:54 Hyperplas ia of prostate 175904649 Active 2014 Hyperplasi a of prostate, unspecifie d, without urinary obstructio n and other lower urinary symptoms (LUTS); snomeddesc ription: Hyperplasi a of prostate; Report Immunity to Registry: Yes; Hyperplas ia of prostate; snomeddesc ription: Hyperplasi a of prostate; Report Immunity to Registry: Yes; Not Available [facility] 4 06:58:54 Anxiety 70638251 Active 1996 Anxiety; snomeddesc ription: Anxiety; Report Immunity to Registry: Yes; Not Available [facility] 4 06:58:54 Testicula r hypofunct ion 388396458 Active 2012 Other testicular hypofuncti on; snomeddesc ription: Male hypogonadi sm; Report Immunity to Registry: Yes; Not Available [facility] 4 06:58:54 Seasonal allergic rhinitis 743236944 Active 2012 Other seasonal allergic rhinitis; snomeddesc ription: Seasonal allergy; Report Immunity to Registry: Yes; Notes: hx nasal congestion ; Not Available [facility] 4 06:58:54 Onychomyc osis due to dermatoph yte 066800495 Active 2017 Tinea unguium; snomeddesc ription: Onychomyco sis; Report Immunity to Registry: Yes; Notes: feet digits; Not Available [facility] 4 06:58:55 Sleep apnea 40302488 Active 1999 Sleep apnea; snomeddesc ription: Sleep apnea; Report Immunity to Registry: Yes; Unspecifi ed sleep apnea; snomeddesc ription: Sleep apnea; Report Immunity to Registry: Yes; Not Available [facility] 4 06:58:55 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 07085204 Active 2006 Other psychoacti ve substance abuse, uncomplica lucho; snomeddesc ription: Substance abuse; Report Immunity to Registry: Yes; Notes: opiate/suad jolene/benzo ; Not Available [facility] 4 06:58:55 Viral hepatitis B without hepatic coma 426912406 Active 2006 Unspecifie d viral hepatitis B without hepatic coma; snomeddesc ription: Type B viral hepatitis; Report Immunity to Registry: Yes; Notes: core ab pos; s ag neg; s ab neg HBV vL nondetecte d 2016; 2017; Not Available [facility] 4 06:58:55 Blood chemistry outside reference range 247421461 Active 2012 Other specified abnormal findings of blood chemistry; snomeddesc ription: Decreased testostero ne level; Report Immunity to Registry: Yes; Notes: hypogoandi sm; Not Available [facility] 4 06:58:55 Arthritis 9360367 Active 1998 Arthritis; snomeddesc ription: Arthritis; Report Immunity to Registry: Yes; Notes: Osteoatrth ris multiple; Not Available [facility] 4 06:58:55 History of urinary stone 844051957 Active 2001 Personal history of urinary calculi; snomeddesc ription: History of calculus of kidney; Report Immunity to Registry: Yes; Not Available [facility] 4 06:58:56 Fibromyal mika 443771404 Active 2006 Fibromyalg ia; snomeddesc ription: Fibromyalg ia; Report Immunity to Registry: Yes; Notes: Chronic pain multiple/c hronic back pain; Not Available [facility] 4 06:58:56 Lyme disease 91067828 Active 2017 Lyme disease; Report Immunity to Registry: Yes; Notes: tx cefuroxime x14 d (hx all Doxy); Not Available [facility] 4 06:58:56 Headache 49293879 Active 2008 Headache; snomeddesc ription: Headache; Report Immunity to Registry: Yes; Notes: migraine; Headache; snomeddesc ription: Headache; Report Immunity to Registry: Yes; Notes: migraine; Not Available [facility] 4 06:58:56 Hypertens marj disorder 52706486 Active 2017 Hypertensi ve disorder; snomeddesc ription: Hypertensi ve disorder; Report Immunity to Registry: Yes; Not Available [facility] 4 06:58:56 Arthropat hy 304790650 Active 1998 Arthropath y, unspecifie d, site unspecifie d; snomeddesc ription: Arthritis; Report Immunity to Registry: Yes; Notes: Osteoatrth ris multiple; Not Available [facility] 4 06:58:56 Essential hypertens ion 64560678 Active 2017 Essential (primary) hypertensi on; snomeddesc ription: Hypertensi ve disorder; Report Immunity to Registry: Yes; Not Available [facility] 4 06:58:57 Testoster one level below reference range 334313600 Active 2012 Decreased testostero ne level; snomeddesc ription: Decreased testostero ne level; Report Immunity to Registry: Yes; Notes: hypogoandi sm; Not Available [facility] 4 06:58:57 Insomnia 240117491 Active 1996 Insomnia; Report Immunity to Registry: Yes; Not Available [facility] 4 06:58:57 Anxiety state 139145649 Active 1996 Anxiety state, unspecifie d; snomeddesc ription: Anxiety; Report Immunity to Registry: Yes; Not Available [facility] 4 06:58:57 Onychomyc osis 245385592 Active 2017 Onychomyco sis; snomeddesc ription: Onychomyco sis; Report Immunity to Registry: Yes; Notes: feet digits; Not Available [facility] 4 06:58:57 Chronic hepatitis C 970519262 Active 2006 Chronic hepatitis C without mention [...] neg 2015;2017; 12/2021 F2 ; Not Available [facility] 4 06:58:57 Depressiv e disorder 03871436 Active 1996 Depressive disorder, not elsewhere classified ; snomeddesc ription: Depressive disorder; Report Immunity to Registry: Yes; Depressiv e disorder; snomeddesc ription: Depressive disorder; Report Immunity to Registry: Yes; Not Available [facility] 4 06:58:58 Seasonal allergy 550182827 Active 2012 Seasonal allergy; snomeddesc ription: Seasonal allergy; Report Immunity to Registry: Yes; Notes: hx nasal congestion ; Not Available [facility] 4 06:58:58 Loss of appetite 36452858 Active 2012 Anorexia; snomeddesc ription: Loss of appetite; Report Immunity to Registry: Yes; Loss of appetite; snomeddesc ription: Loss of appetite; Report Immunity to Registry: Yes; Not Available [facility] 4 06:58:58 Seizure 24866871 Active 2000 Seizure; snomeddesc ription: Seizure; Report [...] to Registry: Yes; Not Available [facility] 4 06:58:58 Problem Notes None recorded. Procedures Surgical History None recorded. Imaging Results Imaging Date Name Status LastModified by Organization Details LastModified Time 06/04/2024 US, abdomen, complete completed [email or web address] [place], [address], 06/18/2024 11:12:25 07/15/2024 electrocardiogram completed [email or web address] Main Of [address], [address], 07/15/2024 17:12:05 07/17/2024 electrocardiogram completed [email or web address] Main Of [address], [address], 07/17/2024 14:15:04 Procedure Notes None recorded. Medical Equipment None Reported. Allergies Allergen ID Allergen Name Allergen Category Reaction Reaction Severity Criticality Documentation Date Start Date Code Code System Note Provider Name and Address Organization Details Recorded Time 714 Reglan medicatio n Not available Not available Not available 10/31/20232012 9230 RxNorm Comme nt: adver se_ev ent_t ype: 88066 8002; ; Not Available [facility] 4 06:50:47 715 Motrin medicatio n Not available Not available Not available 10/31/20232012 29135 8 RxNorm Comme nt: adver se_ev ent_t ype: 23252 8002; ; Not Available [facility] 4 06:50:47 716 doxycycli ne Not available Not available Not available Not available 10/31/20232017 3640 RxNorm Comme nt: adver se_ev ent_t ype: 13134 8002; ; Not Available [facility] 4 06:50:47 Medications Name Sig Start Date [...] HORAS CUANDO SEA NECESARI O PARA EL DOLOR-AK LD POR 10 D active Not Available [...] Available Liquid Nutrition oral 0 Quantity : 18617; Duration : 30; 0 refill(s ) 09/30 [...] Not Available Not Available Not Available Afluria 9486-0266 45 mcg (15 mcg x 3)/0.5 mL [...] Not Available Not Available No t Available [facility] 60 mcg (15 mcg x 4)/0.5 mL [...] active Not Available Not Available Not Available [facility] 60 mcg (15 mcg x 4)/0.5 mL intramusc ular susp. quadriva lent Quantity : ; 0 refill(s ) 2018 active VACCINE_ IND: yes; VACCINE_ NAME: influenz a, injectab le, quadriva lent; SU_FULL_ NAME: Cheryl Palomo l; VIS_DATE : 05:00:00 .0; Not Available Not Available Not Available [facility] 60 mcg (15 mcg x 4)/0.5 mL [...] Pneumoco ccal conjugat e PCV20, polysacc haride [id number] conjugat e, adjuvant , PF; Not Available Not Available Not Available Vitals Date Recorded Body height Heart rate Respiratory rate Body temperature Body mass index (BMI) Body weight Systolic blood pressure Diastolic blood pressure Provider Name and Address Organization Details Last Updated DateTime 4 162.56 cm 89 /min 16 /min 98 [degF] 20.6 kg/m2 34702.0 8 g 123 mm[Hg] 90 mm[Hg] [facility] 4 14:28:38 Date Recorded Body height Provider Name an d Address Organization Details Last Updated DateTime 07/15/[address] [facility] 07/15/2024 15:22:29 Date Recorded Body temperature Body mass index (BMI) Body weight Respiratory rate Heart rate Systolic blood pressure Diastolic blood pressure Provider Name and Address Organization Details Last Updated DateTime 4 98.7 [degF] 20.6 kg/m2 72284.0 8 g 20 /min 87 /min 120 mm[Hg] 80 mm[Hg] Cheryl Street MD [address] [place], [address] 4 15:46:02 Date Recorded Heart rate Body temperature Body weight Systolic blood pressure Diastolic blood pressure Provider Name and Address Organization Details Last Updated DateTime 10/21/2024 98 /min 98.2 [degF] 06971.2 6 g 118 mm[Hg] 97 mm[Hg] [address] [facility] 5 12:04:23 Date Recorded Body height Heart rate Respiratory rate Body mass index (BMI) Body weight Systolic blood pressure Diastolic blood pressure Provider Name and Address Organization Details Last Updated DateTime 5 162.56 cm 81 /min 20 /min 24.9 kg/m2 59576.8 9 g 136 mm[Hg] 89 mm[Hg] Cheryl Street MD [address] [place], [address] [facility] 5 15:01:34 Date Recorded Body height Provider Name an d Address Organization Details Last Updated DateTime 12/30/20[address] [facility] 12/30/2024 15:08:38 Date Recorded Heart rate Body mass index (BMI) Body weight Respiratory rate Systolic blood pressure Diastolic blood pressure Provider Name and Address Organization Details Last Updated DateTime 92 /min 26.1 kg/m2 14479.0 4 g 16 /min 108 mm[Hg] 83 mm[Hg] Cheryl Street MD [address] [place] [address], [address], [facility] 16:33:39 Social History None recorded. Functional Status None recorded. Mental Status None recorded. Family History Nothing Reported Notes:High cholesterol, Resp onse Property: Yes; , Cancer, other unspecified, Response Property: Yes; , Diabetes, Response Property: Yes; Medical History No medical history recorded. Immunizations Vaccine Type Date Status Note Provider Nam e and Address Organization Details Recorded Time Meningococcal MCV4O 9 completed Not Available [facility] 10/31/2023 06:54:49 zoster live 9 completed Not Available [facility] 10/31/2023 06:54:50 Influenza, split virus, quadrivalent, preservative 9 completed Not Available [facility] 10/31/2023 06:54:50 Influenza, split virus, quadrivalent, preservative 8 completed Not Available [facility] 10/31/2023 06:54:50 Influenza, split virus, quadrivalent, preservative 0 completed Not Available [facility] 10/31/2023 06:54:50 Past Encounters Encounter ID Performer Location Encounter Start Date Encounter Closed Date Diagnosis/Indication Diagnosis SNOMED-CT Code Diagnosis ICD10 Code Diagnosis Note [address] MD Main Office [address] [place] [address], [place] [address] 05/25/2023 09:48:40 06/27/2023 09:16:16 Human immunodeficiency virus infection 68863478 B20 HIV. Continue Biktarvy 1 tab po [...] [address] MD Main Office [address] [place] [address] 08/24/2023 09:33:00 08/24/2023 10:46:09 Human immunodeficiency virus infection 83702959 B20 HIV. Continue Biktarvy 1 tab po [...] /Tivicay.s afe sex.labs Septemberlan of care reviewed [address] MD Main Office [address] [place] [address] 11/12/2023 11:34:42 11/16/2023 15:00:47 Human immunodeficiency virus infection 59924641 B20 HIV.Contin ue Biktarvy 1 tab po qd.U=Upt aware of PreP availabili ty.condom use.plan of care reviewed Adult [facility] examination 607712900 Z00.[id number] MD Main Office [address] [place] [address] 11/21/2023 10:59:43 11/23/2023 14:55:[id number] MD Main Office [address] [place] [address] 01/14/2024 09:27:39 01/16/2024 13:51:[id number] MD Main Office [address] [place] [address] 01/16/2024 10:24:39 01/16/2024 11:50:10 Human immunodeficiency virus infection 34868562 B20 HIV.Contin ue Biktarvy 1 tab po qd.U=Upt aware of PreP availabili ty.condom use.labs todayplan of care reviewed Candidiasis of mouth 797 34585 B37.0 nystatin 5cc po qid x 14 days. swish and spit.call with any side effects.ba cterial/fu ngal swab obtained. 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 [id number] MD Main Office [address] [place] [address] 02/14/2024 12:00:04 02/14/2024 12:24:19 Human immunodeficiency virus infection 35873353 B20 HIV.Contin ue Biktarvy 1 tab po qd.U=Upt aware of PreP availabili ty.DoxyPEP reviewedco ndom use.labs todayplan of care reviewed Methicilli n resistant Staphylococcus aureus infection 103972501 A49.02 swab culture 01/2024 Candidiasi s of the esophagus 33086200 B37.81 sandy glabratafl uconazole 100mg po qd x 14 dayscall with any side effects. Weight loss 51754192 R63 .4 contributi ng factor sandy, MRSA, HIV among othermight benefit from Serostim.w ill review with himG tube [address] MD Main Office [address] [place] [address] 02/21/2024 11:08:05 02/21/2024 12:09:56 Human immunodeficiency virus infection 80028876 B20 HIV.Contin ue Biktarvy 1 tab po qd.complia nce reviewedU= Upt aware of PreP availabili ty.DoxyPEP reviewedco ndom use.labs todayplan of care reviewed Candidiasi s of the esophagus 21298790 B37.81 sandy glabratato complete fluconazol e 100mg po bid x 14 days: (10mg/ml) 10ml by G tube bidcall with any side effects. Methicilli n resistant Staphylococcus aureus infection 158463431 A49.02 swab culture urr ently on Bactrim oral suspension (200mg- 40mg/5ml) since 02/15-20ml q 12 hrs G tube x 10 days Cachexia a ssociated with AIDS 428742737 B20 R64 weight loss. frail. progressin g.contribu ting factor sandy, MRSA, HIV among other. G tubeSerost im 6mg sq qd will be prescribed with the goal of helping w weight gain, increase muscle mass gain, and increase enduranceh e has visiting nurse who could assist with daily injections . [address] MD Main Office [address] [place] [place] [address] 02/25/2024 10:24:53 02/25/2024 11:09:27 Human immunodeficiency virus infection 16732559 B20 HIV.Contin ue Biktarvy 1 tab po qd.complia nce reviewedU= Ucondom use.labs todayplan of care reviewed Candidiasi s of the esophagus 15351484 B37.81 sandy glabratawi ll continue fluconazol e 200 mg po qd x 14 days: (10mg/ml) 10ml by G tube QD;will on next appointmen t for further tx va suppressio n tx.call with any side effects. Cachexia a ssociated with AIDS 348371824 B20 R64 weight loss. frail. progressin g.approved Serostim 6mg sq qd; awaiting delivery to the office. will be prescribed with the goal of helping w weight gain, increase muscle mass gain, and increase enduranceh e has visiting nurse who could assist with daily injections .ensure tidmegace 625 mg qd. Methicilli n resistant Staphylococcus aureus infection 836078432 A49.02 swab culture 01/2024will complete 10 days of Bactrim oral suspension (200mg- 40mg/5ml) since 02/15-20ml q 12 hrs G tube on 02/27/[address] MD Main Office [address] [place] [address] 03/14/2024 10:24:00 03/14/2024 10:29:25 Cachexia associated with AIDS 977489554 R64 B20 gained 2 pounds. probably improved sandy esophagiti s 2nd to inhaled steroids.S Tart Serostim 6mg s/c qd abdomen. first dose administer ed today. Tolerated well; goalis to increase weight, endurance and muscle massHe will have [employer]ILD[employer] and nurse help with daily injections .potential side effects reviewed.t o call with any concernshe will pickling grader Megace today, and start it as well(G tube) qd to increase apetitte Human immunodeficiency virus infection 30959178 B20 HIV.Contin ue Biktarvy 1 tab po qd.complia nce reviewed Candidiasi s of the esophagus B37.81 sandy glabratawi ll continue 2 more weeks of fluconazol e 200 mg po qd x 14 days: (10mg/ml) 10ml by G tube QD;might benefit from qw suppressio n tx.call with any side effects. [address] MD Main Office [address] [place] [address] 04/18/2024 09:52:00 04/18/2024 11:19:01 Cachexia associated with AIDS 041418117 R64 B20 124 lbs. gained weightcont inue Serostim 6mg s/c qd abdomen. goalis to increase weight, endurance and muscle masscontin ue Megace G tube qdCNA and nurse helping with compliance and tx.potenti al side effects reviewed.t o call with any concerns Human immunodeficiency virus infection 44851773 B20 HIV.Contin ue Biktarvy 1 tab po qd.complia nce reviewedla bs today Candidiasi s of the esophagus B37.81 sandy glabratawi ll continue fluconazol e 200 (10ml) mg G tube qw for suppressio n tx.call with any side effects. Aspiration pneumonia 422 649356 J69.0 get discharge summaryon antibiotic ;eat standing or sitting; and not sleeping/[place] [address] MD Main Office [address] [place] [address] 05/20/2024 10:17:53 05/20/2024 12:44:49 Cachexia associated with AIDS 858606177 R64 B20 continue Serostim 6mg s/c qd abdomen. goal is to increase weight, endurance and muscle masscontin ue Megace G tube qd 5cc qdCNA and nurse helping with compliance and tx.potenti al side effects reviewed.t o call with any concerns Human immunodeficiency virus infection 39694141 B20 HIV.Contin ue Biktarvy 1 tab po qd.padmini hoffman reviewedla bs today Candidiasi s of the esophagus 56172005 B37.81 sandy glabrataho ld fluconazol e for nowSTART 1 tab po bid x 21 says for esophageal sandy glabrata.c all with any side effects. [address] MD Main Office [address] [place] [address] 06/18/2024 10:10:09 06/18/2024 11:12:33 Cachexia associated with AIDS 019419717 R64 B20 continue Serostim 6mg s/c qd abdomen. goal is to increase weight, endurance and muscle massCNA and nurse helping with compliance and tx.megace on holdpotent ial side effects reviewed.t o call with any concerns Human immunodeficiency virus infection 32906245 B20 HIV.Contin ue Biktarvy 1 tab po qd.padmini hoffman reviewedla bs today Inflammato ry disease of liver 285575531 K75.9 Suspect 2nd to concomitan t medication s. ongoingdo not re-start fluconazol e nor [facility] tive infectious and non-infect ious workupto call or ER if jaundice, abd pain, n/v/d marce mendy History of calculus of kidney [id number] Z87.442 u/s 05/[address] scan 02/2024hydr ation Aspiration pneumonia 422 [id number] J69.0 s/p aspiration on CT AngioNPO per instructio n given to him in hospital; nutrition by G tubes/p (ceftriaxo ne,Azithro ,Flagyl while in Hospital;d ischarged on azithro and cefpodoxim e x 3 days which he completed. leg elevationa void sedating meds as much as possible Deep venou s thrombosis of lower extremity [id number] I82.409 left lower extremity doppler showed DVT of gastrocnem ius vein;on tx w w Eliquis bid . Pulmonary embolism [address] Angio was positive for Acute lobar PEs/p heparin; ongoing Eliquis bidmed list reviewed.n o drug use for years. not on maintenanc e tx.denies current ETOH use. 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 goal is to increase weight, endurance and muscle masspotent ial side effects reviewed.t o call with any concerns Human immunodeficiency virus infection 78848370 B20 HIV.Contin ue Biktarvy 1 tab po qd.complia nce reviewedla bs Candidiasi s of the esophagus 7.81 on clotrimazo le. swish and spit qd Medication monitoring [id number] MD Main Office [address] [place] [address] 10/21/2024 12:22:54 10/21/2024 16:48:51 Cachexia associated with AIDS [id number] R64 B20 improvedco ntinue Serostim 6mg s/c qd abdomen. goal is to increase weight, endurance and muscle masspotent ial side effects reviewed.m ay start decreasing dose in 1-2 months if further weight gainon Boost protein shakesto call with any concerns Human immunodeficiency virus infection 52688571 B20 HIV.Contin ue Biktarvy 1 tab po qd.complia nce reviewedla bs Candidiasi s of the esophagus 781 on clotrimazo le. swish and spit qd/BID PRN [address] MD Main Office [address] [place] [address] 11/25/2024 11:48:55 11/25/2024 14:20:54 Cachexia associated with AIDS 761534432 R64 B20 improvedco ntinue Serostim 6mg s/c [...] with any concerns Human immunodeficiency virus infection 92327157 B20 HIV.Contin ue Biktarvy 1 tab po qd.compljordon copelande reviewedla bs Candidiasi s of the esophagus 01360477 B37.81 off/on; recurrento n clotrimazo le. swish and spit qd/BID PRN for suppressio n Insomnia 746934506 G47.0 0 benadryl capsules requested by patient forinsomni a and itchiness as needed.cor rect use reviewed. [address] MD Main Office [address] [place] [address] 12/30/2024 15:04:38 12/31/2024 09:52:40 Cachexia associated with AIDS 125999498 R64 B20 improvedco ntinue Serostim 6mg s/c [...] with any concerns Human immunodeficiency virus infection 21195655 B20 HIV.Contin ue Biktarvy 1 tab po qd.padmini hoffman reviewedla bs Candidiasi s of the esophagus 47028174 B37.81 off/on; recurrento n clotrimazo le. swish [...] Member ID Guarantor Name 06/18/2024 1 [facility] - DOS ON OR AFTER 2022 - MEDICARE ADVANTAGE [place] (MEDICARE REPLACEMENT/AD VANTAGE - PPO) Benjamin Juan David [id number] Benjamin Juan David 07/15/2024 1 [facility] - DOS ON OR AFTER 2022 - [place]IC[place] VANTAGE - PPO) [facility] Juan David [id number] [facility] 10/21/2024 1 [email or web address] DOS ON OR AFTER 2022 - MEDIC[place]AGE [place] VANTAGE - PPO) [facility] [id number] [facility] 11/25/2024 1 [email or web address] - DOS ON OR AFTER 2022 - [place]IC[place]AGE [place] VANTAGE - PPO) [facility] [id number] [facility] 12/30/2024 1 [email or web address] ON [facility] AFTER 2022 - MEDICARE [place]ANTAGE [place] ([place]/AD VANTAGE - PPO) [facility] [id number] [facility] Notes Date Note Type Note Provider Name and Address Organization Details Recorded Time 06/18/2024 text/html HIVOn Biktarvy 1 tab po qd.reports daily compliance. denies missing dose.resolved thrush. hx recurrence. fluconazole and voriconazole on hold. Pt reports was hospitalized at [facility] 06/10/24-06/13/24 ( got to ER on [...] VL nondetetcted01/2024 HIV VL nondetcetd;eGFR=76;AST /ALT wnl;11/2023 JZ2=981; HIV VLnondetceted; no infections.01/2022 FO1=968; HIV VL nondetceted; eGFR>60; ALt/AST wnl; syphilis neg; GC/chlamydia neg Cheryl Street MD [address] [place] [address], [phone], [facility] 06/18/2024 18:19:56 07/15/2024 text/html HIVOn Biktarvy 1 tab po qd.reports daily compliance. denies missing dose.thrush on/off: recurrence. on clotrimazole daily .stable weight 120lbshe says he is eating more and apetitte has improvedfeels strongergetting serostim dailyno hospitalizations since he was last seenmed list reviewed.On Eliquis and enoxaparin. recent PE/DVT.VL nondetected03/2024 HIV VL nondetctedHIV VL nondetetcted01/2024 HIV VL nondetcetd;eGFR=76;AST /ALT wnl;11/2023 AE7=990; HIV VLnondetceted; no infections. Cheryl Street MD [address] [place] [address], [phone], [facility] 07/15/2024 15:47:48 10/21/2024 text/html HIVOn Biktarvy [...] notify site start date and confirm medication. 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 Cheryl Street MD [address] [place] [address], [phone], [facility] 10/21/2024 14:34:28 11/25/2024 text/html HIVOn Biktarvy [...] cyst removal in recent weeks. outpatient/day procedure. 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 07/2025 HIV VL nondetceted; ALt/AST wnl; eGFR>60; LU9=[address] MD [address] [place] [address], [phone], [facility] 11/26/2024 15:09:42 12/30/2024 text/html HIVOn Biktarvy 1 tab po qd.reports daily compliance. denies missing dose.thrush. gets on/off and using clotrimazole to treat/suppress.gaining weight: 120lbs ---145lbs --152 lbsno aspirationgetting serostim daily for cachexia,no side effects.might get G tube removed in February 2025.no hospitalizations since he was last seenmed list reviewed. LOCKSTITCH TOPSTITCHER [facility]. came in today with a a friendVL nondetceted;07/2025 HIV VL nondetceted; ALt/AST wnl; eGFR>60; QD7=[address] MD [address] [place] [address], [phone], [facility] 12/30/2024 16:39:33
--- OUTSIDE RECORDS SUMMARY | 2025-01-27 14:18 | XMS_ITS | Data Portability ---
Author Organization [facility] [employer] [facility] (formerly [facility])[3], Main Office Address [address] [place] [address] Care Team Providers Care Tax Associate Name Role Phone BRENDAN HOLLINGSWORTH - 2ND [...] and Address Organization Details Recorded Time Asthenia 27750058 Active 2022 MAURO DUFFY NP [address], [address], [place], [address], [facility] 3 12:08:07 Moderate protein-calori e malnutrition (weight for age 60-74 percent of standard) 348110743 Active 2022 MAURO DUFFY NP [address], [address], [place], [address], [facility] 3 12:08:23 Pneumonia 693345653 Active 2022 MAURO DUFFY NP [address], [address], [place], [address], [facility] 3 12:08:31 Pleural effusion 58955968 Active 2022 MAURO DUFFY NP [address], [address], [place], [address], [facility] 3 12:08:59 Hypertensive disorder 69636257 Active 2022 MAURO DUFFY NP [address], [address], [place], [address], [facility] 3 12:09:07 Human immunodeficien cy virus infection 41946046 Active 2022 MAURO DUFFY NP [address], [address], [place], [address], [facility] 3 12:09:12 Viral hepatitis C 06086916 Active 2022 MAURO DUFFY NP [address], [place], [address], [facility] 3 12:09:28 Mixed anxiety and depressive disorder 670220066 Active 2022 MAURO DUFFY NP [address], [place], [address], [facility] 3 12:09:40 Asthma 985991755 Active 2022 MAURO DUFFY NP [address], [place], [address], [facility] 3 12:09:56 Acute dermatitis 09517110 Active 2022 MAURO DUFFY NP [address], [place], [address], [facility] 3 12:14:27 Migraine 25980568 Active 2022 MAURO DUFFY NP [address], [place], [address], [facility] 3 12:25:08 Non-traumatic rhabdomyolysis 781923933 Active 2022 Leilani Romeo MD [address], [place], [address], [facility] 3 10:08:19 Moderate persistent asthma 871176769 Active 2022 Leilani Romeo MD [address], [place], [address], [facility] 3 10:18:10 Insomnia 627099135 Active 2022 Leilani Romeo MD [address], [address], [place], [address], [facility] 3 10:19:09 Harmful pattern of use of multiple substances 278373075 Active 2022 Leilani Romeo MD [address], [place], [address], [facility] 3 10:19:11 Adult failure to thrive syndrome 803489860 Active 2022 Maryjane Glover NP [address], [address], [place], [address], [facility] 3 13:27:15 Anemia 280483549 Active 2022 Maryjane Glover NP [address], [address], [place], [address], [facility] 3 13:30:43 Dysphagia 49342818 Active 2022 Leilani Romeo MD [address], [address], [place], [address], [facility] 3 20:51:38 Gastroesophage al reflux disease without esophagitis 057899138 Active 2022 Leilani Romeo MD [address], [address], [place], [address], [facility] 3 20:54:24 Chronic pain 80341810 Active 2022 Leilani Romeo MD [address], [place], [address], [facility] 3 20:55:56 Problem Notes None recorded. Medical Equipment None Reported. Allergies Allergen ID Allergen Name Allergen Category Reaction Reaction Severity Criticality Documentation Date Start Date Code Code System Note Provider Name and Address Organization Details Recorded Time 43866 codeine medicatio n Not available Not available Not available 01/17/2023 2510 RxNorm rash MAURO DUFFY NP [address], [address], [place], [address], [facility] 3 12:06:48 56001 Levaquin medicatio n Not available Not available Not available 01/17/2023 28030 2 RxNorm sharan DUFFY NP [address], [address], [place], [address], [facility] 3 12:06:58 17958 Reglan medicatio n Not available Not available Not available 01/17/2023 9230 RxNorm rash MAURO DUFFY NP [address], [address], [place], [address], [facility] 3 12:07:11 82485 ibuprofen medicatio n Not available Not available Not available 01/17/2023 5640 RxNorm reflu x MAURO DUFFY NP [address], [address], [place], [address], [facility] 3 12:07:28 23462 Product containin g penicilli n (product) medicatio n Not available Not available Not available 01/17/2023 96494 8001 SNOMED rash MAURO DUFFY NP [address], [address], [place], [address], [facility] 3 12:07:45 83883 Ultram medicatio n Not available Not available Not available 01/17/2023 87528 6 RxNorm N/V MAURO DUFFY NP [address], [address], [place], [address], [facility] 3 12:07:56 57814 acetamino phen medicatio n other Not available unabletoasse 08/03/2023 161 RxNorm unkno wn Maryjane Glover NP [address], [address], [place], [address], [facility] 3 13:00:59 64260 PO[employer] environme nt,medica tion other Not available unabletoasse 08/03/2023 64927 6 RxNorm unkno wn Maryjane Glover NP [address], [address], [place], [address], [place] [facility] 3 13:01:38 Medications Name Sig Start Date [...] Details Last Updated DateTime 3 167.64 cm 62815.5 4 g 17.4 kg/m2 86 /min 18 /min 97.6 [degF] 91 % 91 % 115 mm[Hg] 68 mm[Hg] Maryjane Glover NP [address], [address] , [facility] 3 11:08:33 Date Recorded Body height Body weight Heart rate Respiratory rate Body temperature Oxygen saturation Oxygen saturation in Arterial blood by Pulse oximetry Systolic blood pressure Diastolic blood pressure Provider Name and Address Organization Details Last Updated DateTime 3 167.64 cm 72499.5 4 g 72 /min 18 /min 97.1 [degF] 96 % 96 % 115 mm[Hg] 68 mm[Hg] Maryjane Glover NP [address], [address] , [facility] 3 13:10:32 Date Recorded Body height Body mass index (BMI) Body weight Heart rate Systolic blood pressure Diastolic blood pressure Provider Name and Address Organization Details Last Updated DateTime 3 167.64 cm 17.3 kg/m2 38617.3 8 g 74 /min 133 mm[Hg] 85 mm[Hg] Dilia Gonzalez [address], [address], [place], [address], [facility] 3 13:13:45 Date Recorded Body height Body weight Heart rate Respiratory rate Body temperature Oxygen saturation Oxygen saturation in Arterial blood by Pulse oximetry Systolic blood pressure Diastolic blood pressure Provider Name and Address Organization Details Last Updated DateTime 4 167.64 cm 18522.5 4 g 88 /min 18 /min 97.6 [degF] 96 % 96 % 133 mm[Hg] 85 mm[Hg] Maryjane Glover NP [address], [address], [place], [address], [facility] 4 19:10:48 Date Recorded Body height Heart rate Respiratory rate Body temperature Oxygen saturation Oxygen saturation in Arterial blood by Pulse oximetry Systolic blood pressure Diastolic blood pressure Provider Name and Address Organization Details Last Updated DateTime 4 167.64 cm 84 /min 18 /min 97.5 [degF] 98 % 98 % 133 mm[Hg] 85 mm[Hg] MAURO DUFFY NP [address], [address], [place], [address], [facility] 4 08:57:54 Social History Question Answer Notes LastModified by [employer] Details LastModified Time Tobacco Smoking Status Never Smoker MAURO DUFFY NP [address], [address], [place], [address], [facility] 01/17/2023 11:35:26 Do You Have An Advance Directive? Yes [email or web address] Information not available 01/17/2023 What Is Your Code Status? Full Code [email or web address] Information not available 01/17/2023 Where Do You Live? Apartment With Elevator, Family Near By, Helpful [email or web address] Information not available 01/17/2023 What Was The Date Of Your Most Recent Tobacco Screening? 08/03/2023 Information not available 08/03/2023 Has Tobacco Cessation Counseling Been Provided? No [email or web address] Information not available 01/17/2023 Sex: Unknown Functional Status Question Answer Note LastModified by Organizat ion Details LastModified Time Do you use any illicit or recreational drugs? No noted past use cocaine Information not available 08/03/2023 Do you or have you ever used any other forms of tobacco or nicotine? No [email or web address] Information not available 01/17/2023 What is your level of alcohol consumption? None Information not available 01/17/2023 Mental Status None recorded. Family History Relationship Description Onset Age of this Age Resolved Age Notes LastModified by Organization Details LastModified Time Mother Malignant neoplasm of lung [email or web address] Not available 2022 11:34:21 Medical History No medical history recorded. Immunizations Vaccine Type Date Status Note Provider Nam laurel and Address Organization Details Recorded Time COVID-19, mRNA, LNP-S, bivalent, PF, 50 mcg/0.5 mL or 25mcg/0.25 mL dose 2 completed Asia juarez [facility] 09/11/2023 13:44:56 COVID-19, mRNA, LNP-S, bivalent, PF, 50 mcg/0.5 mL or 25mcg/0.25 mL dose 3 completed Asia juarez [facility] 09/11/2023 13:45:39 Pneumococcal conjugate PCV20, polysaccharide HRR359 conjugate, adjuvant, PF 3 completed Asia Andre [facility] 09/11/2023 13:46:16 Influenza, adjuvanted, quadrivalent, PF 3 completed Asia juarez [facility] 09/11/2023 13:46:36 Influenza, adjuvanted, quadrivalent, PF 2 completed Asiayahaira Andre [facility] 10/24/2023 13:13:32 Past Encounters Encounter ID Performer Location Encounter Start Date Encounter Closed Date Diagnosis/Indication Diagnosis SNOMED-CT Code Diagnosis ICD10 Code Diagnosis Note [id number] MAURO DUFFY NP [address] [address] 01/17/2023 11:16:19 01/22/2023 12:34:21 Pleural effusion 78050035 J90 and empyema, resp. failures/p L chest tube, intubation Clinically improved.M onitor VS, sats, LS, CP status closely for decompensa tion Pneumonia 774229786 J18. 9 Treated with IV zosyn in hosp.Clini lesly improved.A s above, monitlr VS, sats, LS, CP status closely Asthenia 16864613 R53.1 PT OT eval and tx. Moderate protein-calorie malnutrition (weight for age 60-74 percent of standard) 972776431 E44.0 Started supplement s in hosp.Refer to boats renter here.Seen by ST in hosp, diet changed to chopped/ad vanced consistenc yOn reg. diet here, doing well. Refer to rehab to try to get bedside FEES testing Hypertensive disorder 38 107337 I10 On norvasc 5 mg dailyPropr anolol ER held in hosp., instructed to resume 03/09, unclear as to why held or if used for something else?Monio r VS, adjust meds prn Human immunodeficiency virus infection 92498821 B20 Continue biktarvy Mixed anxi ety and depressive disorder 763512177 F41.8 Continue home meds:clona zepam 1 mg daily? risperdal 2 mg HSremeron 60 mg HSMonitor mood, behaviors for changePsyc h eval prn Asthma 200884416 J45.90 9 Continue flovent bidMonitor resp. status for change Acute dermatitis 1458252 6 L30.9 bilat. groin, fungalstar t nystatin cream or powder bid x 14 days or until clearmonit or Migraine 85110113 G43.90 9 Continue home meds:Celeb monica 200 mg bidgabapen tin 600 mg tidibuprof en 800 mg q8 hr prnultram 50 daily prn? clonazepam 1 mg daily? risperdal 2 mg HS? propranolo l Er 120 mg daily - held in hosp - cont. to hold here, resume date of 03/09 [id number] Kenia Michaels MD [address] [address] 01/19/2023 07:22:18 01/22/2023 15:16:30 Pneumonia 598700603 J15.8 antibiotic s completeds /p empyema, respirator y failure, intubation will monitor Asthenia 92120566 R53.1 PT/OTwill monitor Human immunodeficiency virus infection 30006857 B20 Biktarvy 50-200-25 dailyfu I.D. Essential hypertension 62287133 I10 amlodipine 5 mg dailywill monitor Mixed anxi ety and depressive disorder 313218147 F41.8 gabapentin 600 mg tidmirtaza pine 60 mg at hsrisperid one 2 mg at hsclonazep am 1 mg dailywill monitor Gastroesop hageal reflux disease without esophagitis 773256904 K21.9 pantoprazo le 40 mg dailywill monitor Chronic pain 71005794 G8 9.29 gabapentin 600 mg tidhospita l discharge notes include:ce lecoxib 200 m bid, ibuprofen 800 mg q8h prn, tramadol 50 mg daily prnwill monitor and consider if needed [id number] Panchito Morales NP [facility] on [address] [place] [address] 06/30/2023 08:20:37 07/03/2023 11:44:52 Human immunodeficiency virus infection 60523411 B20 06/30/23mo nitorID consult as indicated- biktarvy (bictegrav ir, emtricitab ine & tenofovir alafenamid e) 50-200-25m g QD Hypertensive disorder 38 372417 I10 06/30/23mo nitorcards FU PRNavoid beta barb with HX of cocaine abuse-amlo dipine 5mg QD Mixed anxi ety and depressive disorder 179848817 F41.8 06/30/23mo nitorpsych consult PRN-risper idone 3mg QHS Viral hepatitis C 965094 07 B19.20 06/30/23mo nitor [id number] Leilani Romeo MD [facility] on [address] [place] [address] 07/02/2023 17:00:01 07/12/2023 14:37:46 Human immunodeficiency virus infection 94653452 B20 Non-detect able on last checkConti nue biktarvy (bictegrav ir, emtricitab ine & tenofovir alafenamid e) 50-200-25m g QDF/U with ID as planned. Hypertensive disorder 38 669612 I10 BP good since here.Sam nue amlodipine 5 mg qdMonitor BP and labs. Mixed anxi ety and depressive disorder 314374009 F41.8 Mood stable.Con tinue risperidon e 3 mg qhs, mirtazapin e 30 mg qhs, and clonazepam 1 mg qd.Monitor mood.Psych consult prn. Viral hepatitis C 818543 07 B18.2 Unclear hx.LFTs WNL.F/U as outpt. Acute chest pain 3684274 01 R07.89 Per cardio not ACS.Monito r sxs.F/U with cardio prn. Non-trauma tic rhabdomyolysis 257435074 M62.82 CPK trended down inpt.No need to monitor further. Moderate p ersistent asthma 625260916 J45.40 No SOB or hypoxia, but with junky cough as above.Cont inue Advair 230/21 two puffs BID, Flovent 2 puffs BID, and albuterol/ budesonide 2 puffs q 6 hrs prn.Monito r resp status. 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 Cough 87316135 R05.8 Sounds junky, but pt says it feels like tickle in throat. Maybe post nasal drip.Lungs clear, but still could be early PNA.Will start Robitussin DM 10 ml q 4 hrs prn and get CXR tomorrow.M onitor resp status. Insomnia 311243250 G47.0 9 Will try melatonin 5 mg qhs.Monito r sleep patterns. [id number] MIGUEL BROWN [facility] on [address] [place] [address] 07/05/2023 08:16:20 07/12/2023 16:01:31 Mixed anxiety and depressive disorder 539172280 F41.8 07/05: his mood is stablecont inue:clona zepam 1 mg dailyrispe ridone 3 mg daily at bedtime.Mi rtazapine 30 mg at bedtime daily.tu tonin 5 mg at bedtime daily Cough 44960650 R05.8 07/05: non productive upper airway congested coughThere is no SOB. LS are clearCXR completed; no active pulmonary infiltrate s or pleural effusions seen.Robit ussin DM 10 ml q 4 hrs prn- will scheduled for a few days, does not look like he requested prn.Monito r resp status. Harmful pa ttern of use of multiple substances 000454801 F19.10 Most often cocaine, but sometimes other things.Con tinue SUDs counseling while here and encourage abstinence and outpt f/u. [id number] MIGUEL BROWN [facility] on [address] [place] [address] 07/06/2023 09:35:29 07/12/2023 16:16:45 Mixed anxiety and depressive disorder 762058457 F41.8 continue:c lonazepam 1 mg dailyrispe ridone 3 mg daily at bedtime.Mi rtazapine 30 mg at bedtime daily.tu tonin 5 mg at bedtime dailyfollo w up with outpatient PCP. Cough 98964595 R05.8 CXR on 07/03/23 negative for any acute process.Ro bitussin DM 10 ml q 4 hrs prnfollow up with outpatient PCP. Acute dermatitis 5027966 6 L30.9 continueny statin cream BID as needed until clearedfol low up with outpatient PCP. Asthma 938845039 J45.90 9 Advair 230/21 two puffs BID,Floven t 2 puffs BID, andalbuter ol/budeson kentrell 2 puffs q 6 hrs prn.follow up with outpatient PCP. Human immunodeficiency virus infection 87263562 B20 Continue biktarvy (bictegrav ir, emtricitab ine & tenofovir alafenamid e) 50-200-25m g QD Hypertensive disorder 38 516267 I10 Continue amlodipine 5 mg qdfollow up outpatient Insomnia 910674178 G47.0 9 melatonin 5 mg at bedtime Migraine 89007340 G43.90 9 Continue home meds: Celebrex 200 mg bid gabapentin 600 mg tid ibuprofen 800 mg q8 hr prn ultram 50 daily prn clonazepam 1 mg daily risperdal 3 mg HS follow up with PCP Viral hepatitis C 427531 07 B18.2 follow labs outpatient follow up with outpatient pcp. [id number] Maryjane Glover NP [address] [address] 08/03/2023 12:58:35 08/08/2023 10:07:33 Human immunodeficiency virus infection 93185367 B20 ID consult prnbiktarv y (bictegrav ir, emtricitab ine & tenofovir alafenamid e) 50-200-25m g QD Asthenia 26946482 R53.1 PT/OT treat and evalwill monitor Essential hypertension 65554549 I10 amlodipine 5 mg dailywill monitor Mixed anxi ety and depressive disorder 374599439 F41.8 gabapentin 600 mg tidmirtaza pine 60 mg at hsrisperid one 3 [facility] [place] [facility] [place] 1 mg dailypsych prnwill monitor Gastroesop hageal reflux disease without esophagitis 343858948 K21.9 With recent workup in hosp and PEG placed.use G tube for feedings/m edswill monitor Chronic pain 49319649 G8 9.29 gabapentin 600 mg tidtramado l 50 mg prn dailymulti ple allergies notedwill monitor and consider if needed Harmful pa ttern of use of multiple substances 434141609 F19.10 Most often cocaine per hx with overdoses notedConti nue counseling while here and encourage abstinence and outpt f/u. Asthma 542287942 J45.90 9 advair 2 puff bidalbuter ol 2 puffs q 6 hours prn wheezingMo nitor resp. status for change Viral hepatitis C 894897 07 B18.2 fu with labscurren tly stable liver enzymesmon itor Moderate protein-calorie malnutrition (weight for age 60-74 percent of standard) 522848660 E44.0 now on PEG tube with feedings at 60cc/hrRef er to boats renter here.Seen by in hosp, unclear why he has dysphagia and difficulty eating with workup including EGD at [facility] recentlysp eech eval and treat here to see if he can take po intakemoni tor Anemia 749405224 D64.9 ferrous gluconate 324 dailymonit or cbc weekly Adult fail ure to thrive syndrome 912289164 R62.7 g tube feedings and meds through g tube at 60cc/hrfai lure to thrive with supplement s in pastspeech to eval and treat, consider reintroduc ing foods when ableweight s weeklymoni tor Insomnia 345729392 G47.0 9 benedryl 25 mg qhsmonitor [id number] Leilani Romeo MD [address] [address] 08/06/2023 16:28:34 08/08/2023 11:16:44 Adult failure to thrive syndrome 118706972 R62.7 With marked wt. loss over past few months.Con tinue Jevity 1.0 or 1.2 tanya/ml at 60 ml/hr.Stil l unable to swallow, unknown reason.Con momo [employer] interventi ons to hopefully enable him to eat again.Cait tor wts and labs. Moderate protein-calorie malnutrition (weight for age 60-74 percent of standard) 356835992 E44.0 As above. Human immunodeficiency virus infection 05353390 B20 Last labs show zero viral load.Sam nue Biktarvy (bictegrav ir, emtricitab ine & tenofovir alafenamid e) 50-200-25m g QDF/U with ID as planned. Asthenia 06169347 R53.1 Very deconditio armen.Needs PT/OT for strengthen ing, balance, gait training, safety and function.C ontinue fall precaution s.Monitor for safety. Essential hypertension 08078441 I10 BP running low since here, should improve as nutritiona l status improves.C ontinue amlodipine 5 mg qdMonitor BP and labs. Gastroesop hageal reflux disease without esophagitis 662827800 K21.9 On no meds.I wonder if starting a PPI may help with throat pain?Monit or Chronic pain 72487570 G8 9.29 No c/o tonight.Co ntinue gabapentin 600 mg TID and tramadol 50 mg qd prnMonitor sxs. Asthma 173743750 J45.30 Asthma meds transcribe d incorrectl y on admission here.Was not put on Advair, but rather only albuterol/ budesonide prn.Will restart Advair 230/21 mcg two puffs BIDMonitor resp. status Anemia 714836463 D64.89 Not currently anemic.Con tinue ferrous gluconate 324 mg qdMonitor labs Mixed anxi ety and depressive disorder 419869356 F41.8 Mood stable.Con tinue risperidon e 3 mg qhs, mirtazapin e 60 mg qhs, and clonazepam 1 mg qd.Monitor mood.Psych consult prn. Viral hepatitis C 161352 07 B18.2 Unclear hx.LFTs WNL.F/U as outpt. Harmful pa ttern of use of multiple substances 258002694 F19.10 Most often cocaine, but sometimes other things.Mehrdad barr counseling and encourage abstinence and outpt f/u. Dysphagia 56753373 R13.1 9 Unknown etiology.C ontinue G-tube feeding as above.Cons ider ENT consult. [id number] Maryjane Glover NP [address] [address] 08/16/2023 12:26:03 08/22/2023 11:29:11 Adult failure to thrive syndrome 180384825 R62.7 With marked wt. loss over past few months.Con momoJevit y 1.5 tanya/ml at 60 ml/hr. boats renter following and will adjust as neededStil l unable to swallow, unknown reason.Mehrdad barr [employer] interventi ons to hopefully enable him to eat again.Cait tor wts and labs. Dysphagia 98072350 R13.1 9 Unknown etiology.C ontinue G-tube feeding as above.Cons ider ENT consult. Moderate protein-calorie malnutrition (weight for age 60-74 percent of standard) 484216914 E44.0 As above. Human immunodeficiency virus infection 57249858 B20 Last labs show zero viral load.Sam nueBiktarv y (bictegrav ir, emtricitab ine & tenofovir alafenamid e) 50-200-25m g QDF/U with ID as planned. Asthenia 38604444 R53.1 Very deconditio armen.Needs PT/OT for strengthen ing, balance, gait training, safety and function.C ontinue fall precaution s.Monitor for safety. Essential hypertension 40294360 I10 BP running low since here, should improve as nutritiona l status improves.a mlodipine 5 mg qdMonitor BP and labs. Gastroesop hageal reflux disease without esophagitis 800902846 K21.9 no meds.Monit or Chronic pain 30531251 G8 9.29 has mild headache todayConti nuegabapen tin 600 mg TIDtramado l 50 mg qd prnMonitor sxs. Asthma 993831118 J45.30 Asthma meds transcribe d incorrectl y on admission here.albut maddi/budes onide prn.Advair 230/21 mcg two puffs BIDMonitor resp. status Anemia 210326934 D64.89 Not currently anemic.juan carlos scales order cbc and bmp weekly c8wortgaz gluconate 324 mg qdMonitor labs Mixed anxi ety and depressive disorder 496679770 F41.8 Mood stable.ris peridone 3 mg qhsmirtaza pine 60 mg qhs,clonaz epam 1 mg qd.Monitor mood.Psych consult prn. Viral hepatitis C 722736 07 B18.2 Unclear hx.LFTs WNL.F/U as outpt. Harmful pa ttern of use of multiple substances 676013194 F19.10 Most often cocaine, but sometimes other things.Mehrdad barr counseling and encourage abstinence and outpt f/u. [id number] Maryjane Glover NP [address] [address] 08/22/2023 11:06:38 08/28/2023 14:23:57 Adult failure to thrive syndrome 507707126 R62.7 With marked wt. loss over past few months.Con momoJevit y 1.2 tanya/ml at 67ml/hr. boats renter following and will adjust as neededStil l unable to swallow, unknown reason.Mehrdad barr [employer] interventi ons to hopefully enable him to eat again.Cait tor wts and labs.08/22 boats renter to assess if bolus feedings can be attempted for homefamily /pt needs g tube care/teach ing for ? dc homemonito r Asthenia 27270218 R53.1 Very deconditio armen, improving every week with therapyNee ds PT/OT for strengthen ing, balance, gait training, safety and function.C ontinue fall precaution s.Monitor for safety. Dysphagia 55870088 R13.1 9 Unknown etiology.C ontinue G-tube feeding as above.Cons ider ENT consult. Anemia 970852816 D64.89 Not currently anemic.juan carlos scales order cbc and bmp weekly i1qzmklia gluconate 324 mg qdMonitor labs Moderate protein-calorie malnutrition (weight for age 60-74 percent of standard) 253533714 E44.0 As above. Human immunodeficiency virus infection 69937986 B20 ContinueBi ktarvy (bictegrav ir, emtricitab ine & tenofovir alafenamid e) 50-200-25m g QDF/U with ID as planned. Essential hypertension [id number] I10 BP now improving as nutritiona l status improves.1 10s-130s /60scontam lodipine 5 mg qdMonitor BP and labs. Gastroesop hageal reflux disease without esophagitis [id number] K21.9 no meds.Monit or Chronic pain 53288610 G8 9.29 headache resolvedCo ntinuegaba pentin 600 mg TID, no pain todaytrama dol 50 mg qd prnMonitor sxs. Asthma [id number] J45.30 Asthma meds transcribe d incorrectl y on admission here.albut maddi/budes onide prn.Advair 230/21 mcg two puffs BIDMonitor resp. status Mixed anxi ety and depressive disorder [id number] F41.8 Mood stable and ding wellrisper idone 3 mg qhsmirtaza pine 60 mg qhs,clonaz epam 1 mg qd.Monitor mood.Psych consult prn. [id number] Maryjane Glover, [facility] [address] 08/29/2023 08:14:48 08/30/2023 19:42:34 Adult failure to thrive syndrome [id number] R62.7 With marked wt. loss over past few months.Con tinueJevit y 1.2 tanya/ml at 67ml/hr. boats renter following and will adjust as neededStil l unable to swallow, unknown reason.per speech eval: no eating or drinkingMo nitor wts and labs.08/22 boats renter to assess if bolus feedings can be attempted for homefamily /pt needs g tube care/teach ing for ? dc homemonito r110/30 awaiting boats renter to calculate gtube feedings and start Asthenia [id number] R53.1 Very deconditio armen, improving every week with therapyNee ds PT/OT for strengthen ing, balance, gait training, safety and function.C ontinue fall precaution s.Monitor for safety. Dysphagia 83268766 R13.1 9 Unknown etiology.C ontinue G-tube feeding as above.Cons ider ENT consult. Anemia 571042589 D64.89 Not currently anemic.juan carlos l order cbc and bmp prn, labs stableferr ous gluconate 324 mg qdMonitor labs Moderate protein-calorie malnutrition (weight for age 60-74 percent of standard) 139738390 E44.0 As above. Human immunodeficiency virus infection 74395026 B20 ContinueBi ktarvy (bictegrav ir, emtricitab ine & tenofovir alafenamid e) 50-200-25m g QDF/U with ID as planned. Essential hypertension 16288769 I10 BP now improving as nutritiona l status improves.1 conta mlodipine 5 mg qdMonitor BP and labs. Gastroesop hageal reflux disease without esophagitis 385942075 K21.9 no meds.Monit or Chronic pain 55292507 G8 9.29 headache resolvedCo ntinuegaba pentin 600 mg TID, no pain todaytrama dol 50 mg qd prnMonitor sxs. Asthma 291498055 J45.30 Asthma meds transcribe d incorrectl y on admission here.albut maddi/budes onide prn.Advair 230/21 mcg two puffs BIDMonitor resp. status Mixed anxi ety and depressive disorder 864811994 F41.8 Mood stable and ding wellrisper idone 3 mg qhsmirtaza pine 60 mg qhs,clonaz epam 1 mg qd.Monitor mood.Psych consult prn. Neck pain 89217146 M54.2 incidental neck pain, states slept on it wrongnsg giving tyl, tramadol and gabapentin reposition neckmonito r for relief [id number] Dilia Hutchinson [address] [address] 09/07/2023 05:15:43 09/13/2023 10:39:11 Adult failure to thrive syndrome 938258060 R62.7 With marked wt. loss over past few months.Con tinueJevit y 1.2 tanya/ml at 67ml/hr. boats renter following and will adjust as neededStil l unable to swallow, unknown reason.Con momo STEEL RIGGER interventi ons to hopefully enable him to eat again.Cait tor wts and labs.recei deborah education on gt feeds, SW working on VNA set up for [facility] GT site daily with NS and dry. apply 2x2 to sitemonito r Asthenia [id number] R53.1 Very deconditio armen, improving every week with therapyNee ds PT/OT for strengthen ing, balance, gait training, safety and function.C ontinue fall precaution s.Monitor for safety. Dysphagia 00525719 R13.1 9 Unknown etiology.C ontinue G-tube feeding as above.Cons ider ENT consult. Anemia 911270897 D64.89 Not currently anemic.juan carlos l order cbc and bmp weekly i0axyavjn gluconate 324 mg qdMonitor labs Moderate protein-calorie malnutrition (weight for age 60-74 percent of standard) 569029107 E44.0 As above. Human immunodeficiency virus infection 69586284 B20 ContinueBi ktarvy (bictegrav ir, emtricitab ine & tenofovir alafenamid e) 50-200-25m g QDF/U with ID as planned. Essential hypertension 95672282 I10 BP now improving as nutritiona l status improves.1 10s-130s /60scontam lodipine 5 mg qdMonitor BP and labs. Gastroesop hageal reflux disease without esophagitis 742086555 K21.9 no meds.Monit or Chronic pain 76826825 G8 9.29 headache resolvedCo ntinuegaba pentin 600 mg TID, no pain todaytrama dol 50 mg qd prnMonitor sxs. Asthma 589639372 J45.30 Asthma meds transcribe d incorrectl y on admission here.albut maddi/budes onide prn.Advair 230/21 mcg two puffs BIDMonitor resp. status Mixed anxi ety and depressive disorder 912417777 F41.8 Mood stable and ding wellrisper idone 3 mg qhsmirtaza pine 60 mg qhs,clonaz epam 1 mg qd.Monitor mood.Psych consult prn. [id number] Maryjane Glover NP [address] [address] 09/12/2023 18:08:08 09/14/2023 11:17:17 Adult failure to thrive syndrome 495462461 R62.7 With marked wt. loss over past [...] dry. apply 2x2 to sitemonito r Asthenia 72371121 R53.1 Very deconditio armen, improving every week with therapyNee ds PT/OT for strengthen ing, balance, gait training, safety and function.C ontinue fall precaution s.Monitor for safety. Dysphagia 34503370 R13.1 9 Unknown etiology.C ontinue G-tube bolus feeding as above.FEES test on Sundayne s cxr to rule out pna from foods and drinks in room despite recommenda tionConsid er ENT consult. Moderate protein-calorie malnutrition (weight for age 60-74 percent of standard) 692648094 E44.0 As above. Human immunodeficiency virus infection 24389281 B20 ContinueBi ktarvy (bictegrav ir, emtricitab ine & tenofovir alafenamid e) 50-200-25m g QDF/U with ID as planned. Essential hypertension 96225913 I10 BP now improving as nutritiona l status improves.1 10s-130s /60scontam lodipine 5 mg qdMonitor BP and labs. Asthma 093791411 J45.30 no wheezing noted on exam, stablealbu terol/bude sonide prn.Advair 230/21 mcg two puffs BIDMonitor resp. status Mixed anxi ety and depressive disorder 278662489 F41.8 Mood stable and ding wellrisper idone 3 mg qhsmirtaza pine 60 mg qhs,clonaz epam 1 mg qd.Monitor mood.Psych consult prn. [id number] MAURO DUFFY NP [address] [address] 09/18/2023 08:57:08 09/25/2023 10:49:09 Adult failure to thrive syndrome 444166409 R62.7 With marked wt. loss over past few months due to difficulty swallowing .G tube placed 07/30/23 at [facility].Contin ue osmolite 1.2 tanya/ml 410 cc qid bolus tube feedings upon d/c home.Seen by STEEL RIGGER - now on puree diet with thin liquids - may continue at homeContin ue to monitor weights and intake at home Asthenia 13069659 R53.1 Improved, meeting rehab goals for d/c home today with support of services.C ontinue fall precaution s.Monitor for safety as outpt. Dysphagia 54801688 R13.1 9 Unknown etiology.S ee above.[facility] w on pureed diet, thin liquidsMon itor intake, s/s aspiration as outpt. Moderate protein-calorie malnutrition (weight for age 60-74 percent of standard) 552193044 E44.0 As above. Human immunodeficiency virus infection 62292802 B20 ContinueBi ktarvy (bictegrav ir, emtricitab ine & tenofovir alafenamid e) 50-200-25m g QDF/U with ID as planned. Essential hypertension 46009872 I10 continue amlodipine 5 mg qdMonitor BP as outpt. Asthma 029313181 J45.30 no wheezing noted on exam, stablecont inue Advair 230/21 mcg two puffs BID and albuterol/ budesonide prn.Monito r resp. status as outpt. Mixed anxi ety and depressive disorder 638821347 F41.8 Mood stable and doing wellContin ue home medsrisper idone 3 mg qhsmirtaza pine 60 mg qhsclonaze david 1 mg qdMonitor mood, behaviors as outpt. Chronic pain 47082937 G8 9.29 continue gabapentin 600 mg tid, ultram 50 mg qd prnmonitor asoutpt. Anemia 871334246 D64.89 remains on daily FeMonitor CBC,s/s active bleeding Health Concerns Section Related Observation LastModified by Organization Detai ls LastModified Time None Recorded Concern Status LastModified by Organization Details LastModified Time None Recorded Advance Directives Directive Y: Payers Encounter Date Sequence Insurance Name Policy Number Policy Perry Covered Member ID Perry Member ID Guarantor Name 08/22/2023 1 [facility] [employer] - DOS ON OR AFTER 2022 - [place]IC[place]/ADV ANTAGE - PPO) [facility] [id number] [facility] 08/29/2023 1 [facility] - DOS ON OR AFTER 2022 - [place]/ADV ANTAGE - PPO) [facility] [id number] [facility] 09/07/2023 1 [facility] - DOS ON OR AFTER 2022 - [place]/ADV ANTAGE - PPO) [facility] Fall [id number] [facility] 09/12/2023 1 [facility] - DOS ON OR AFTER 2022 - [place]/ADV ANTAGE - PPO) [facility] [id number] [facility] 09/18/2023 1 [facility] - DOS ON OR AFTER 2022 - [place]/ADV ANTAGE - PPO) [facility] [id number] [facility] Notes Date Note Type Note Provider [...] Note: He was admitted to [facility] ED for similar concerns earlier this month [...] code signed 01/17/23 Maryjane Glover NP [address], [address], [place], [address], [facility] [employer] 08/22/2023 11:24:08 08/29/2023 text/html Patient seen for an 30 routine rounding visit. Past medical history significant for HIV, history of hep C, depression, asthma, history lung abscess 2020, fall, several overdoses noted in hx. dysphagia seen for difficulty swallowing ultimately diagnosed with failure to thrive and PEG tube placed. Benjamin was admitted to [facility] ED for difficulty swallowing and underwent EGD [...] from hospital to rehab. While here at [facility]: Pt is 107.6 lbs and this [...] disconnect his feedings without difficulty here. Awaiting boats renter to calculate bolus feedings and start them [...] code signed 01/17/23 Maryjane Glover NP [address], [address], [place], [address], [facility] 08/29/2023 13:39:07 09/07/2023 text/html Patient seen for [...] Note: He was admitted to [facility] ED for similar concerns earlier this month [...] Full code signed 01/17/23 Dilia lloyd [address], [address], [place], [address], [facility] 09/07/2023 13:21:25 09/12/2023 text/html Patient seen for [...] code signed 01/17/23 Maryjane Glover, LADAN [address], [address], [place], [address], [facility] [employer] [facility] 09/12/2023 19:33:00 09/18/2023 text/html Benjamin is seen t heidy for discharge. He is going home today with support of services. He is a 58 yo man admitted to [facility] 08/02/23 from [facility] for continued care and rehab after a hospitalization related to malnutrition and FTT.He presented to [facility] 07/27 reporting throat pain and the inability to swallow.Swallowing issues problematic prior to this presentation, had EGD with Dr. Dodson 07/17, results c/w mild candidiasis normal stomach and duodenum. He was also seen by STEEL RIGGER, diet changed to NND1 and nectar thick liquid. Due to ongoing swallowing issues at home, he returned to [facility] ER.A g-tube was placed on 07/30, cause of dysphagia unclear. Kept NPO, and sent here for rehab. While here, Benjamin has done well.Worked with PT/OT, meeting goals for d/c home.Also worked with STEEL RIGGER and boats renter - now tolerating puree diet with thin [...] also, possibly inadvertently). MAURO DUFFY NP [address], [address], [place], [address], [facility] 09/18/2023 09:47:21
--- NOTE | 2025-01-27 16:42 | PM.IMHP ---
History of Present Illness Date of Service: 01/27/25 Chief Complaint: Shortness of breath 59-year-old male with past medical history of chronic respiratory failure with hypoxia on home O2, pleural effusion status post decortication, HFrEF with EF of 40-50% and HIV presents with worsening shortness of breath over the last week. He states initially it was managed by his home inhalers however got to the point where he could not walk across his room without being extremely short of breath. He denies fever and chills in the preceding week however does say he has a productive cough. He denies tobacco or alcohol use. In the emergency room chest x-ray failed to demonstrate presence of an infiltrate however given his work of breathing he will be admitted for treatment of same Review of Systems Review of Systems: Denies chest pain Admits shortness of breath that is worse with the exertion Denies nausea vomiting diarrhea Denies fever chills PMFSH Medical History Lower urinary tract symptoms Hypogonadism in male Low serum cortisol level Adrenal hyperplasia Osteoporosis Height loss HIV (human immunodeficiency virus infection) Asthma Dysphagia Adult failure to thrive Adult failure to thrive Multiple rib fractures History of empyema of pleura (01/05/23) Hypertension Closed fracture of leg Hepatitis C Kidney stones Pleuritic chest pain Pneumonia Substance abuse Hemorrhoids Depression HIV (human immunodeficiency virus infection) Asthma Family History Maternal Grandmother Lung cancer Maternal Aunt Lung cancer Mother Lung cancer Surgical History H/O hemorrhoidectomy Social History Household Members: Caregiver Household Members Other:: lives with BARREL INSPECTOR TIGHT Housing: Apartment Do you presently have visiting nurse or other home services: Yes Alcohol intake: never Patient Tobacco Use Status: Former Tobacco user Tobacco use type: Cigarette e-Cigarette/Vaping Use: Never Used Second Hand Smoke Exposure: No Substance Use Type: Crack/Cocaine Advance Directives: Yes Advance Directives on File: Yes Advance Directives Date on File: 04/25/21 service: No Current occupational status: disabled Gender identity: Male Meds Allergies Allergy/AdvReac Type Severity Reaction Status Date / Time Seasonal Allergies Allergy Intermediate Eye Verified 01/27/25 11:32 Drainage codeine Allergy Mild Rash Verified 01/27/25 11:32 [From Tylenol-Codeine #3] levofloxacin [From Levaquin] Allergy Mild Rash Verified 01/27/25 11:32 metoclopramide [From Reglan] Allergy Mild Rash Verified 01/27/25 11:32 acetaminophen Allergy Unknown Rash Verified 01/27/25 11:32 [Tylenol-Codeine #3] Penicillins [PENICILLINS] Allergy Unknown Rash Verified 01/27/25 11:32 ibuprofen [From Motrin] AdvReac Unknown Reflux Verified 01/27/25 11:32 Active Medications: Current Medications Acetaminophen (Acetaminophen 325 Mg Tablet) 650 mg PO Q6H PRN PRN Reason: Pain, Mild 1-3,fever,headache Albuterol/Ipratropium (Albuterol/Iprat 2.5/0.5mg 3 Ml Ampul.Neb) 3 ml INHALE RQ4H WHILE AWAKE MICHAEL Calcium Carbonate (Calcium Carbonate 750 Mg Tab.Chew) 750 mg PO Q4H PRN PRN Reason: Heartburn Magnesium Hydroxide (Milk Of Magnesia 30 Ml Oral.Susp) 30 ml PO DAILY PRN PRN Reason: Constipation Melatonin (Melatonin 3 Mg Tablet) 6 mg PO BEDTIME PRN PRN Reason: Insomnia Methylprednisolone Sodium Succinate (Methylprednisolone Sod Succ 125 Mg Vial) 60 mg IVPUSH Q6H MICHAEL Ondansetron HCl (Ondansetron Hcl 4 Mg/2 Ml Vial) 4 mg IVPUSH Q8H PRN PRN Reason: Nausea and Vomiting Sodium Chloride (0.9 % Sodium Chloride Flush 3 Ml Syringe) 3 ml IVFLUSH QSHIFT [facility] Home Medications ?Medication ?Instructions ?Recorded ?Confirmed ?Last Taken ?Type calcium 600 mg (as 1 tab feeding tube BID@1200,1800 12/16/23 10/17/24 05/05/24 History carbonate)-vitamin D3 20 mcg (800 unit) tablet ferrous gluconate 324 mg (38 mg 324 mg feeding tube BID 12/16/23 10/17/24 05/05/24 History iron) tablet risperidone 3 mg tablet 3 mg feeding tube BEDTIME 12/16/23 10/17/24 05/05/24 History omeprazole 10 mg capsule,delayed 10 mg feeding tube DAILY@0630 PRN 01/10/24 10/17/2424 History release Acid Reflux albuterol sulfate 90 mcg/actuation 2 puff inhalation Q6H PRN wheezing 03/07/24 10/17/24 Unknown History aerosol inhaler (Ventolin HFA) amlodipine 5 mg tablet 5 mg PO DAILY 04/14/24 10/17/24 05/05/24 History megestrol 625 mg/5 mL (125 mg/mL) 5 ml feeding tube DAILY 04/14/24 10/17/24 05/05/24 History oral suspension propranolol 120 mg capsule,24 120 mg PO DAILY 05/07/24 10/17/24 05/05/24 History hr,extended release somatropin 6 mg subcutaneous 6 mg subcut DAILY 05/07/24 10/17/24 05/05/24 History solution (Serostim) apixaban 5 mg tablet (Eliquis) 5 mg PO BID 01/27/25 Unknown History ascorbic acid (vitamin C) 250 mg 250 mg PO DAILY 01/27/25 Unknown History tablet brimonidine 0.2 %-timolol 0.5 % 1 drp ophthalmic (eye) BID 01/27/25 Unknown History eye drops (Combigan) clotrimazole 10 mg klaudia 10 mg PO TID candidiasis 01/27/25 Unknown History diphenhydramine HCl 25 mg capsule 25 - 50 mg PO DAILY PRN Sleep 01/27/25 Unknown History (Banophen) gabapentin 600 mg tablet 600 mg PO TID 01/27/25 Unknown History glycopyrrolate 1 mg tablet 1 mg BID 01/27/25 Unknown History megestrol 625 mg/5 mL (125 mg/mL) 5 ml feeding tube DAILY daily 01/27/25 Unknown History oral suspension netarsudil 0.02 %-latanoprost 1 drp ophthalmic (eye) BEDTIME 01/27/25 Unknown History 0.005 % eye drops (Rocklatan) pilocarpine HCl 5 mg tablet 5 mg PO TID 01/27/25 Unknown History romosozumab-aqqg 210 mg/2.34 mg subcut QMONTH 01/27/25 Unknown History mL(105 mg/1.17 mL x2)subcutaneous syringe (Evenity) Physical Exam Vital Signs and Narrative: Vital Signs: Last Vital Signs Temp 97.6 F 01/27/25 12:48 Pulse 92 01/27/25 14:49 Resp 23 H 01/27/25 14:49 BP 121/82 01/27/25 14:49 Pulse Ox 94 01/27/25 14:49 O2 Del Method Nasal Cannula 01/27/25 14:49 O2 Flow Rate 2 01/27/25 14:49 BMI result Body Mass Index 24.2 Const: Other: Awake alert able to speak in short sentences Resp: Other: Diminished throughout with dense expiratory wheezes and scattered rhonchi throughout Cardio: Other: No S4; positive S1-S2; no S3 murmurs rubs or gallops GI: Other: Soft nontender nondistended normoactive bowel sounds. G-tube site clean dry and intact Extrem: Other: Extremities without edema Results Labs 01/27/25 11:40 01/27/25 12:40 Labs: Laboratory Results - last 24 hr 01/27/25 01/27/25 01/27/25 11:39 11:40 12:40 MCV 94.4 MCH 33.3 H MCHC 35.2 RDW 13.5 Plt Count 178 MPV 10.8 Immature Gran % (Auto) 0.5 H Neut % (Auto) 70.2 Lymph % (Auto) 18.3 L [place] % (Auto) 9.5 Eos % (Auto) 0.9 Baso % (Auto) 0.6 Lymph # (Auto) 1.2 [place] # (Auto) 0.6 Eos # (Auto) 0.1 Baso # (Auto) 0.0 Abs Immat Gran (auto) 0.03 Absolute Neuts (auto) 4.6 Absolute Nucleated RBC 0.000 Nucleated RBC % (auto) 0.0 Hold Blue Top SEE NOTE VBG pH VBG pCO2 VBG pO2 VBG HCO3 VBG O2 Saturation VBG Base Excess Anion Gap Cancelled 11 L Estim Creat Clear Calc Cancelled 72.3 Estimated GFR Cancelled > 60 Random Glucose Cancelled 106 Calcium Cancelled 9.3 D Magnesium Cancelled 2.1 Total Bilirubin Cancelled 0.9 AST Cancelled 39 H ALT Cancelled 78 H Alkaline Phosphatase Cancelled 106 B-Natriuretic Peptide < 10 Total Protein Cancelled 7.4 Albumin Cancelled 4.3 Lipase Cancelled 7 L Influenza Type A (PCR) NEGATIVE Influenza Type B (PCR) NEGATIVE RSV RNA Qual (PCR) NEGATIVE SARS-CoV-2 RNA (RT-PCR) NEGATIVE 01/27/25 12:46 MCV MCH MCHC RDW Plt Count MPV Immature Gran % (Auto) Neut % (Auto) Lymph % (Auto) [place] % (Auto) Eos % (Auto) Baso % (Auto) Lymph # (Auto) [place] # (Auto) Eos # (Auto) Baso # (Auto) Abs Immat Gran (auto) Absolute Neuts (auto) Absolute Nucleated RBC Nucleated RBC % (auto) Hold Blue Top VBG pH 7.43 VBG pCO2 35 VBG pO2 47 VBG HCO3 23 VBG O2 Saturation 76.0 VBG Base Excess 0.1 Anion Gap Estim Creat Clear Calc Estimated GFR Random Glucose Calcium Magnesium Total Bilirubin AST ALT Alkaline Phosphatase B-Natriuretic Peptide Total Protein Albumin Lipase Influenza Type A (PCR) Influenza Type B (PCR) RSV RNA Qual (PCR) SARS-CoV-2 RNA (RT-PCR) Imaging Radiologist's Impressions: Impressions Chest X-Ray 01/27/25 11:27 IMPRESSION: No acute airspace disease. Electronically signed by: Tyrone Dias MD 01/27/2025 12:19 PM EDT Assessment and Plan (1) Asthma exacerbation: Qualifiers: Asthma severity: mild Asthma persistence: intermittent Qualified Code(s): J45.21 - Mild intermittent asthma with (acute) exacerbation Status: Acute (2) HIV (human immunodeficiency virus infection): Qualifiers: HIV symptom status: unspecified Qualified Code(s): Z21 - Asymptomatic human immunodeficiency virus [HIV] infection status Status: Acute (3) Dysphagia: Qualifiers: Dysphagia type: unspecified Qualified Code(s): R13.10 - Dysphagia, unspecified Status: Acute Plan 58 years old man with past medical history significant for asthma, HIV compliant with [facility]RTs (Sep 2023 -HIV viral load undetectable, CD4 627), dysphagia, s/p G-tube placement, chronic hepatitis-C, depression and essential hypertension was brought to the emergency department via ambulance complaining of worsening shortness of breath over the last 3 days associated with productive cough of brownish sputum and chest tightness. 1.COPD exacerbation -methylprednisolone 60 mg IV q.6 hours -DuoNebs q.4 hours while awake -ceftriaxone/azithromycin (1) -supplemental O2 as needed 2. HIV -stable and well compensated -continue outpatient therapies 3. Dysphagia -we will consult nutrition in a.m. for tube feedings and adjustments -start tube feedings as per last admission Eliquis Full Code Will require at least 2 midnights going forward of inpatient stay to treat COPD exacerbation with IV steroids and antibiotics and supplemental O2 as indicated. This can not be achieved a lesser acute setting Quality Stroke Does the patient have a stroke diagnosis?: No VTE Prior VTE?: No VTE Risk Level:: Medical - moderate - high VTE Device Contraindication: Treatment Not Indicated VTE Drug Contraindication: N/A - Med Ordered
[2025-01-27] MEDS: cefTRIAXone sodium 1 GM VIAL IVPUSH (18:50)
[2025-01-27] MEDS: Azithromycin 500 MG in 0.9 % Sodium Chloride 250 ML 125 MG IV (18:50)
--- NOTE | 2025-01-27 19:29 | PHA.MEDREC ---
Addendum entered by Di Rowley [facility] 01/27/25 19:44: REVIEWED, list currently matches list with [facility] claims. Original Note: Pharmacy Consult ? Medication Reconciliation Pharmacy has completed the medication reconciliation. Patient is a poor historian. Patient states he has a home nurse (Kwasi [phone]) that gives him his medications daily. Called and spoke to Kwasi over the phone to confirm med list. Kwasi states he is driving and doesn't have a list of patients medications with him. He stated he will call me back to confirm patient medications. Called [facility] and received a list of patient meds. Utilized list from [facility] to confirm med rec. Will up date med list with any changes when/If patient nurse calls back. Left Omeprazole 10 mg unconfirmed due to no claim history.
[2025-01-27] MEDS: Albuterol/Iprat 2.5/0.5MG 3 ML AMPUL.NEB INHALE (19:46)
[2025-01-27] MEDS: Morphine Sulfate 2 MG/ML CARTRIDGE IVPUSH (19:55)
--- NOTE | 2025-01-27 20:00 | PC.NURSE ---
Assumed care for pt at 1900. Pt attempting to eat a sandwich. Pt observed unable to chew or swallow. Pt has a feeding tube in place and states he is able to eat soft/mashed foods at home but unable to chew today. Food and liquids removed from the bedside. Oral care provided. Brewster text sent to Dr. Ji for NPO order as pt has a regular diet order in place. Plan is for pt to be evaluated by box loader/nutrition in the morning for tube feeding assessment. Plan of care communicated to pt. Pt in agreement. Pt reports chest pain 04/19. NSR on monitor with HR 90's. Dr. Ji made aware. New order placed in NOV. Assistance provided with the urinal. Call jansen placed within reach. Monitoring is ongoing.
[2025-01-27 20:38] LABS: Troponin-I High Sensitivity < 2.7 ng/L (<3.5-35.0)
[2025-01-28] VITALS (11 sets, daily range): BP systolic 115–138; BP diastolic 68–76; PULSE 75–90; RESP 16–25; TEMP 36.1–37.1; O2SAT 89–95; BMI 22.5
[2025-01-28] MEDS: 0.9 % Sodium Chloride Flush 3 ML SYRINGE IVFLUSH ×4 (00:24→23:42)
[2025-01-28] MEDS: Ketorolac Tromethamine 15 MG/ML VIAL IVPUSH (01:57)
[2025-01-28] MEDS: Albuterol/Iprat 2.5/0.5MG 3 ML AMPUL.NEB INHALE ×3 (08:27→15:35)
--- NOTE | 2025-01-28 10:12 | MHC.CLN ---
Addendum entered by Myriam Awan RD 01/28/25 10:33: QUALIFIES MODERATELY MALNOURISHED IN THE CONTEXT OF CHRONIC ILLNESS. Original Note: NUTRITION TUBE FEED ORDER PATIENT IS NPO AND REQUIRES TUBE FEEDING FOR NUTRITION/HYDRATION RECOMMEND JEVITY 1.0 AT MAX GOAL RATE 65 ML/HOUR CONTINUOUS, FREE WATER FLUSH 120 ML Q 6 HOURS. PROVIDES 1654 KCALS (26 KCALS/KG), 69 G PROTEIN (1.1 G/KG), 1783 ML TOTAL WATER FROM FORMULA AND FLUSHES (28.2 ML/KG). MONITOR TOLERANCE, RESIDUALS AND LYTES. SEE CLINICAL NUTRITION ASSESSMENT 01/28/25.
--- NOTE | 2025-01-28 10:38 | MHC.CM.PN ---
[facility] DELIVERED PT LIVES ALONE AND HAS 54HRS/WK OF [employer] ASSIST VIA [employer]. PT HAS A WALKER BUT FREQUENTLY AMBULATES W/O IT. HOME 02 AT 2L AT [facility]IA [facility] PT IS ACTIVE WITH [facility] FOR NURSING/G/T OVERSIGHT AND SUPPLIES. +HCP ON FILE. PCP DR. SCOTT JUNIOR DP: HOME WITH RESUMPTION OF SERVICES IS THE GOAL. RETURN REFERRAL SENT TO [facility] AND WELDING MACHINE OPERATOR THERMIT EVAL PENDING. [employer] [facility] ([phone]) WILL TRANSPORT HOME. CM WILL CONTINUE TO FOLLOW FOR ANY CHANGE TO DC PLAN/NEEDS.
--- NOTE | 2025-01-28 14:19 | HO.PM.IMPN ---
Subjective Subjective Date of Service: 01/28/25 Interval History: Notes improvement in breathing since admission. G-tube feeding started Review of Systems Denies chest pain Admits shortness of breath that is worse with the exertion Denies nausea vomiting diarrhea Denies fever chills Physical Exam Vital Signs: Vital Signs: Last Vital Signs Temp 98.7 F 01/28/25 12:00 Pulse 78 01/28/25 12:01 Resp 16 01/28/25 12:01 BP 131/76 01/28/25 12:00 Pulse Ox 95 01/28/25 12:00 O2 Del Method Room Air 01/28/25 12:00 O2 Flow Rate 2 01/28/25 00:45 BMI result Body Mass Index 22.5 Const: Other: Awake alert able to speak in short sentences Resp: Other: Diminished throughout with dense expiratory wheezes and scattered rhonchi throughout Cardio: Other: No S4; positive S1-S2; no S3 murmurs rubs or gallops GI: Other: Soft nontender nondistended normoactive bowel sounds. G-tube site clean dry and intact Extrem: Other: Extremities without edema Objective Data Active Medications Acetaminophen (Acetaminophen 325 Mg Tablet) 650 mg PO Q6H PRN PRN Reason: Pain, Mild 1-3,fever,headache Albuterol Sulfate (Albuterol Sulfate 90 Mcg 8 Gm Inhaler) 2 puff INHALE Q6H PRN PRN Reason: wheezing Albuterol/Ipratropium (Albuterol/Iprat 2.5/0.5mg 3 Ml Ampul.Neb) 3 ml INHALE RQ4H WHILE AWAKE [facility] Last Admin: 01/28/25 12:01 Dose: 3 ml Documented By: ELSA Apixaban (Apixaban 5 Mg Tablet) 5 mg PO BID [facility] Ascorbic Acid (Ascorbic Acid 250 Mg Tablet) 250 mg PO DAILY [facility] Bictegravir/Emtricitabine/Tenofovir (Bictegrav/Emtricit/Tenofov Ala Tablet) 1 tab PO DAILY [facility] Calcium Carbonate (Calcium Carbonate 750 Mg Tab.Chew) 750 mg PO Q4H PRN PRN Reason: Heartburn Calcium Carbonate/Cholecalciferol (Calcium + Vitamin D 250 Mg Tablet) 500 mg PO BID@1200,1800 [facility] Ceftriaxone Sodium (Ceftriaxone Sodium 1 Gm Vial) 1 gm IVPUSH Q24H [facility] Last Admin: 01/27/25 18:50 Dose: 1 gm Documented By: COSTA Clonazepam (Clonazepam 1 Mg Tablet) 1 mg PO DAILY [facility] Gabapentin (Gabapentin 600 Mg Tablet) 600 mg PO TID [facility] Glycopyrrolate (Glycopyrrolate 1 Mg Tablet) 1 mg PO BID [facility] Azithromycin 500 mg/ Sodium (Chloride) 250 mls @ 125 mls/hr IV Q24H [facility] Stop: 01/29/25 19:59 Last Infusion: 01/27/25 20:50 Dose: Infused Documented By: EVERETT Magnesium Hydroxide (Milk Of Magnesia 30 Ml Oral.Susp) 30 ml PO DAILY PRN PRN Reason: Constipation Melatonin (Melatonin 3 Mg Tablet) 6 mg PO BEDTIME PRN PRN Reason: Insomnia Methylprednisolone Sodium Succinate (Methylprednisolone Sod Succ 125 Mg Vial) 60 mg IVPUSH Q6H [facility] Last Admin: 01/28/25 12:48 Dose: 60 mg Documented By: CATHY Mirtazapine (Mirtazapine 30 Mg Tablet) 60 mg PO BEDTIME [facility] Non-Formulary Medication (Brimonidine-Timolol [Combigan]) 1 drop EYE-BOTH BID [facility] Non-Formulary Medication (Netarsudil-Latanoprost [Rocklatan]) 1 drop EYE-BOTH BEDTIME [facility] Non-Formulary Medication (Pilocarpine Hcl) 5 mg PO TID [facility] Non-Formulary Medication (Somatropin [Serostim]) 6 mg SUBCUT DAILY [facility] Ondansetron HCl (Ondansetron Hcl 4 Mg/2 Ml Vial) 4 mg IVPUSH Q8H PRN PRN Reason: Nausea and Vomiting Oxycodone HCl (Oxycodone Hcl Immed Release 5 Mg Tablet) 5 mg G-TUBE Q4H PRN PRN Reason: Pain, Moderate(Pain Scale 4-6) Risperidone (Risperidone 3 Mg Tablet) 3 mg PO BEDTIME [facility] Sodium Chloride (0.9 % Sodium Chloride Flush 3 Ml Syringe) 3 ml IVFLUSH QSHIFT [facility] Last Admin: 01/28/25 09:49 Dose: 3 ml Documented By: CATHY Tamsulosin HCl (Tamsulosin Hcl 0.4 Mg Capsule) 0.4 mg PO BEDTIME [facility] Labs 01/27/25 11:40 01/27/25 12:40 Assessment and Plan (1) Asthma exacerbation: Status: Acute (2) Dysphagia: Status: Acute Plan 58 years old man with past medical history significant for asthma, HIV compliant with HARRTs (Sep 2023 -HIV viral load undetectable, CD4 627), dysphagia, s/p G-tube placement, chronic hepatitis-C, depression and essential hypertension was brought to the emergency department via ambulance complaining of worsening shortness of breath over the last 3 days associated with productive cough of brownish sputum and chest tightness. 1.COPD exacerbation -methylprednisolone 60 mg IV q.6 hours -DuoNebs q.4 hours while awake -ceftriaxone/azithromycin (2) -supplemental O2 as needed 2. HIV -stable and well compensated -continue outpatient therapies 3. Dysphagia -tube feedings as per nutrition Eliquis Full Code Will require ongoing hospitalization for IV antibiotics to treat COPD exacerbation Quality Stroke Does the patient have a stroke diagnosis?: No VTE Prior VTE?: No VTE Risk Level:: Medical - moderate - high VTE Device Contraindication: Treatment Not Indicated VTE Drug Contraindication: N/A - Med Ordered
[2025-01-28] MEDS: Ascorbic Acid 250 MG TABLET PO (14:30)
[2025-01-28] MEDS: clonazePAM 1 MG TABLET PO (14:30)
[2025-01-28] MEDS: oxyCODONE HCl Immed Release 5 MG TABLET G-TUBE ×2 (14:30→21:48)
[2025-01-28] MEDS: Apixaban 5 MG TABLET PO ×2 (14:30→21:48)
[2025-01-28] MEDS: Gabapentin 600 MG TABLET PO ×2 (14:30→21:47)
--- NOTE | 2025-01-28 15:45 | MHC.SLORD ---
Speech Language Pathology Order Status: Pt is a 59 y/o M, complex PMH including chronic respiratory failure with hypoxia, not on home O2 per pt report. Pt presented to [facility] with SOB, CXR showed infultrate, pt coughing up brown sputum and c/o chest tightness. Pt has long history of dysphagia. RN in ED observed pt unable to swallow sandwich. Pt last seen by md pediatric allergist at [facility] in July 2023, pt was s/p Gtube procedure, BREASTFEEDING PROGRAM COORDINATOR recc NPO with repeat MBSS through OP. Noncompliance noted from prior BREASTFEEDING PROGRAM COORDINATOR assessment in January 2023, when pureed and NTL consistencies recommended. 01/28/25: No bedside evaluation conducted. BREASTFEEDING PROGRAM COORDINATOR consulted with MD, spoke to pt about recommendations. Pt to be assessed with PO trials only under videofluroscopy d/t severity of pt dysphagia and elevated risk for aspiration. Recc NPO, ice chips for oral hydration. OP MBSS to determine if pt able to tolerate PO safely, and if so, identify consistencies/strategies to prevent aspiration.
[2025-01-28] MEDS: Glycopyrrolate 1 MG TABLET PO ×2 (16:17→21:48)
[2025-01-28] MEDS: Bictegrav/Emtricit/Tenofov Ala TABLET 1 TAB PO (16:17)
[2025-01-28] MEDS: Magnesium Hydrox/Alum Hydrox 30 ML ORAL.SUSP G-TUBE (16:23)
[2025-01-28 16:52] LABS: Glucose, Whole Blood 144 mg/dL (60-115)
[2025-01-28] MEDS: Azithromycin 500 MG in 0.9 % Sodium Chloride 250 ML 125 MG IV (17:58)
[2025-01-28] MEDS: cefTRIAXone sodium 1 GM VIAL IVPUSH (17:58)
[2025-01-28] MEDS: Calcium + Vitamin D 250 MG TABLET 500 MG PO (17:58)
[2025-01-28 20:20] LABS: Glucose, Whole Blood 129 mg/dL (60-115)
[2025-01-28] MEDS: Pantoprazole Sodium 40 MG/10 ML VIAL IVPUSH (20:33)
[2025-01-28] MEDS: risperiDONE 3 MG TABLET PO (21:47)
[2025-01-28] MEDS: Mirtazapine 30 MG TABLET 60 MG PO (21:47)
--- NOTE | 2025-01-28 22:03 | PC.NURSE ---
Patient complaining of chest tightness and pressure, and burning in the throat and unsure if it is more heartburn or not. Patient reporting he was having this feeling earlier in the day, now feeling worse. Patient is NPO, has G tube with feeding, bedtime medications via po route per nov. Dr. Ji notified. Per MD, administer po medications via G tube. Order for IV protonix.
[2025-01-29] VITALS (9 sets, daily range): BP systolic 117–131; BP diastolic 70–75; PULSE 77–91; RESP 14–20; TEMP 36.3–37.3; O2SAT 90–95; BMI 22.2
[2025-01-29] MEDS: oxyCODONE HCl Immed Release 5 MG TABLET G-TUBE ×4 (02:49→20:11)
[2025-01-29 07:47] LABS: Glucose, Whole Blood 150 mg/dL (60-115)
[2025-01-29] MEDS: Albuterol/Iprat 2.5/0.5MG 3 ML AMPUL.NEB INHALE ×3 (08:20→18:49)
[2025-01-29] MEDS: Bictegrav/Emtricit/Tenofov Ala TABLET 1 TAB PO (08:36)
[2025-01-29] MEDS: Glycopyrrolate 1 MG TABLET PO ×2 (08:36→20:06)
[2025-01-29] MEDS: Gabapentin 600 MG TABLET PO ×3 (08:36→20:06)
[2025-01-29] MEDS: Apixaban 5 MG TABLET PO ×2 (08:36→20:06)
[2025-01-29] MEDS: Ascorbic Acid 250 MG TABLET PO (08:36)
[2025-01-29] MEDS: clonazePAM 1 MG TABLET PO (08:36)
[2025-01-29] MEDS: 0.9 % Sodium Chloride Flush 3 ML SYRINGE IVFLUSH ×3 (08:51→20:07)
[2025-01-29 11:30] LABS: Glucose, Whole Blood 142 mg/dL (60-115)
[2025-01-29] MEDS: Calcium + Vitamin D 250 MG TABLET 500 MG PO ×2 (11:57→17:16)
--- NOTE | 2025-01-29 12:53 | P.PNIM_ITS ---
Subjective Subjective Date of Service: 01/29/25 Interval History: No acute issues overnight. Continues to improve Review of Systems Denies chest pain Admits shortness of breath that is worse with the exertion Denies nausea vomiting diarrhea Denies fever chills Physical Exam 2 Vital Signs: Vital Signs: Last Vital Signs Temp 98.2 F 01/29/25 11:45 Pulse 82 01/29/25 11:49 Resp 16 01/29/25 11:45 BP 121/74 01/29/25 11:45 Pulse Ox 91 L 01/29/25 11:45 O2 Del Method Room Air 01/29/25 11:45 O2 Flow Rate 2 01/29/25 07:05 BMI result Body Mass Index 22.5 Const: Other: Awake alert able to speak in short sentences Resp: Other: Diminished throughout with dense expiratory wheezes and scattered rhonchi throughout Cardio: Other: No S4; positive S1-S2; no S3 murmurs rubs or gallops GI: Other: Soft nontender nondistended normoactive bowel sounds. G-tube site clean dry and intact Extrem: Other: Extremities without edema Objective Data Active Medications Acetaminophen (Acetaminophen 325 Mg Tablet) 650 mg PO Q6H PRN PRN Reason: Pain, Mild 1-3,fever,headache Albuterol Sulfate (Albuterol Sulfate 90 Mcg 8 Gm Inhaler) 2 puff INHALE Q6H PRN PRN Reason: wheezing Albuterol/Ipratropium (Albuterol/Iprat 2.5/0.5mg 3 Ml Ampul.Neb) 3 ml INHALE RQ4H WHILE AWAKE [facility] Last Admin: 01/29/25 11:43 Dose: 3 ml Documented By: FRANCIE Apixaban (Apixaban 5 Mg Tablet) 5 mg PO BID [facility] Last Admin: 01/29/25 08:36 Dose: 5 mg Documented By: SOLOMON Ascorbic Acid (Ascorbic Acid 250 Mg Tablet) 250 mg PO DAILY [facility] Last Admin: 01/29/25 08:36 Dose: 250 mg Documented By: SOLOMON Bictegravir/Emtricitabine/Tenofovir (Bictegrav/Emtricit/Tenofov Ala Tablet) 1 tab PO DAILY [facility] Last Admin: 01/29/25 08:36 Dose: 1 tab Documented By: SOLOMON Calcium Carbonate (Calcium Carbonate 750 Mg Tab.Chew) 750 mg PO Q4H PRN PRN Reason: Heartburn Calcium Carbonate/Cholecalciferol (Calcium + Vitamin D 250 Mg Tablet) 500 mg PO BID@1200,1800 [facility] Last Admin: 01/29/25 11:57 Dose: 500 mg Documented By: SOLOMON Ceftriaxone Sodium (Ceftriaxone Sodium 1 Gm Vial) 1 gm IVPUSH Q24H [facility] Last Admin: 01/28/25 17:58 Dose: 1 gm Documented By: DOBROB Clonazepam (Clonazepam 1 Mg Tablet) 1 mg PO DAILY [facility] Last Admin: 01/29/25 08:36 Dose: 1 mg Documented By: SOLOMON Dextrose (Dextrose 50 % 25 Gm/50 Ml Syringe) 25 gm IVPUSH Q15M PRN; Protocol PRN Reason: per Hypoglycemia Standing Ord. Gabapentin (Gabapentin 600 Mg Tablet) 600 mg PO TID [facility] Last Admin: 01/29/25 08:36 Dose: 600 mg Documented By: SOLOMON Glucose (Glucose Gel 15 Gm Gel..Gram.) 15 gm PO Q15M PRN; Protocol PRN Reason: per Hypoglycemia Standing Ord. Glycopyrrolate (Glycopyrrolate 1 Mg Tablet) 1 mg PO BID [facility] Last Admin: 01/29/25 08:36 Dose: 1 mg Documented By: SOLOMON Azithromycin 500 mg/ Sodium (Chloride) 250 mls @ 125 mls/hr IV Q24H [facility] Stop: 01/29/25 19:59 Last Infusion: 01/28/25 20:00 Dose: Infused Documented By: TUMASY Insulin Human Lispro (Insulin Lispro 100 Unit/Ml 3 Ml Vial) 0 unit SUBCUT QIDACHS [facility]; Protocol Last Admin: 01/29/25 11:43 Dose: Not Given Documented By: SOLOMON Non-Admin Reason: No Insulin Coverage Magnesium Hydroxide (Milk Of Magnesia 30 Ml Oral.Susp) 30 ml PO DAILY PRN PRN Reason: Constipation Melatonin (Melatonin 3 Mg Tablet) 6 mg PO BEDTIME PRN PRN Reason: Insomnia Methylprednisolone Sodium Succinate (Methylprednisolone Sod Succ 125 Mg Vial) 60 mg IVPUSH Q6H [facility] Last Admin: 01/29/25 11:56 Dose: 60 mg Documented By: SOLOMON Mirtazapine (Mirtazapine 30 Mg Tablet) 60 mg PO BEDTIME [facility] Last Admin: 01/28/25 21:47 Dose: 60 mg Documented By: TUMASY Non-Formulary Medication (Brimonidine-Timolol [Combigan]) 1 drop EYE-BOTH BID [facility] Non-Formulary Medication (Netarsudil-Latanoprost [Rocklatan]) 1 drop EYE-BOTH BEDTIME [facility] Non-Formulary Medication (Pilocarpine Hcl) 5 mg PO TID [facility] Non-Formulary Medication (Somatropin [Serostim]) 6 mg SUBCUT DAILY [facility] Ondansetron HCl (Ondansetron Hcl 4 Mg/2 Ml Vial) 4 mg IVPUSH Q8H PRN PRN Reason: Nausea and Vomiting Oxycodone HCl (Oxycodone Hcl Immed Release 5 Mg Tablet) 5 mg G-TUBE Q4H PRN PRN Reason: Pain, Moderate(Pain Scale 4-6) Last Admin: 01/29/25 09:21 Dose: 5 mg Documented By: SOLOMON Risperidone (Risperidone 3 Mg Tablet) 3 mg PO BEDTIME [facility] Last Admin: 01/28/25 21:47 Dose: 3 mg Documented By: FRANNIE Sodium Chloride (0.9 % Sodium Chloride Flush 3 Ml Syringe) 3 ml IVFLUSH QSHIFT [facility] Last Admin: 01/29/25 08:51 Dose: 3 ml Documented By: SOLOMON Tamsulosin HCl (Tamsulosin Hcl 0.4 Mg Capsule) 0.4 mg PO BEDTIME [facility] Last Admin: 01/28/25 21:49 Dose: Not Given Documented By: LEIDYASY Non-Admin Reason: unable to give throuh G tube; spoke w/ pharm Labs 01/27/25 11:40 01/27/25 12:40 Labs: Laboratory Results - last 24 hr 01/28/25 01/28/25 01/29/25 16:48 20:05 07:13 POC Glucose 144 H 129 H 150 H 01/29/25 11:22 POC Glucose 142 H Microbiology Microbiology Results: Microbiology 01/27/25 18:35 Blood Culture - Preliminary Blood - Venous No growth after 24 hours. 01/27/25 18:35 Blood Culture - Preliminary Blood - Venous No growth after 24 hours. Assessment and Plan (1) Asthma exacerbation: Status: Acute (2) Dysphagia: Status: Acute (3) History of pulmonary embolism: Status: Acute Plan 58 years old man with past medical history significant for asthma, HIV compliant with HARRTs (Sep 2023 -HIV viral load undetectable, CD4 627), dysphagia, s/p G- tube placement, chronic hepatitis-C, depression and essential hypertension was brought to the emergency department via ambulance complaining of worsening shortness of breath over the last 3 days associated with productive cough of brownish sputum and chest tightness. 1.COPD exacerbation -methylprednisolone 60 mg IV q.6 hours -DuoNebs q.4 hours while awake -ceftriaxone/azithromycin (3) -supplemental O2 dc....RA -await negative cultures times 48 hours 2. HIV -stable and well compensated -continue outpatient therapies 3. Dysphagia -tube feedings as per nutrition Eliquis Full Code Will require ongoing hospitalization for IV antibiotics to treat COPD exacerbation Quality Stroke Does the patient have a stroke diagnosis?: No VTE Prior VTE?: No VTE Risk Level:: Medical - moderate - high VTE Device Contraindication: Treatment Not Indicated VTE Drug Contraindication: N/A - Med Ordered
[2025-01-29 15:35] LABS: Glucose, Whole Blood 149 mg/dL (60-115)
[2025-01-29] MEDS: cefTRIAXone sodium 1 GM VIAL IVPUSH (17:15)
[2025-01-29] MEDS: Acetaminophen 325 MG TABLET 650 MG PO (17:15)
[2025-01-29] MEDS: Azithromycin 500 MG in 0.9 % Sodium Chloride 250 ML 125 MG IV (17:16)
--- NOTE | 2025-01-29 18:16 | PC.NURSE ---
pt complaining of sore throat ,tongue and itchy throat , this rn looked in mouth and noted to have white patches on tongue , md aware , md states will add new med
[2025-01-29 20:07] LABS: Glucose, Whole Blood 130 mg/dL (60-115)
[2025-01-29] MEDS: risperiDONE 3 MG TABLET PO (20:07)
[2025-01-29] MEDS: Mirtazapine 30 MG TABLET 60 MG PO (20:07)
[2025-01-29] MEDS: Fluconazole in NaCl,Iso-Osm 200 MG/100 ML PIGGYBACK 100 MG IV (20:14)
[2025-01-30] VITALS (9 sets, daily range): BP systolic 108–134; BP diastolic 61–85; PULSE 79–108; RESP 14–18; TEMP 36–36.8; O2SAT 89–97
[2025-01-30] MEDS: oxyCODONE HCl Immed Release 5 MG TABLET G-TUBE ×3 (06:59→14:34)
[2025-01-30 07:29] LABS: Glucose, Whole Blood 157 mg/dL (60-115)
[2025-01-30] MEDS: Albuterol/Iprat 2.5/0.5MG 3 ML AMPUL.NEB INHALE ×2 (08:00→19:35)
[2025-01-30] MEDS: Ascorbic Acid 250 MG TABLET PO (08:09)
[2025-01-30] MEDS: Bictegrav/Emtricit/Tenofov Ala TABLET 1 TAB PO (08:09)
[2025-01-30] MEDS: clonazePAM 1 MG TABLET PO (08:09)
[2025-01-30] MEDS: Glycopyrrolate 1 MG TABLET PO ×2 (08:09→21:09)
[2025-01-30] MEDS: Insulin Lispro 100 UNIT/ML 3 ML VIAL SUBCUT ×2 (08:09→21:09)
[2025-01-30] MEDS: Apixaban 5 MG TABLET PO ×2 (08:09→21:09)
[2025-01-30] MEDS: Gabapentin 600 MG TABLET PO ×3 (08:09→21:09)
[2025-01-30] MEDS: 0.9 % Sodium Chloride Flush 3 ML SYRINGE IVFLUSH ×3 (08:12→21:35)
--- NOTE | 2025-01-30 10:19 | MHC.CLN ---
F/U PATIENT IS NPO AND REQUIRES TUBE FEEDING FOR NUTRITION/HYDRATION. TOLERATING JEVITY 1.0 AT MAX GOAL RATE 65 ML/HOUR CONTINUOUS, FREE WATER FLUSH 120 ML Q 6 HOURS. PROVIDES 1654 KCALS (26 KCALS/KG), 69 G PROTEIN (1.1 G/KG), 1783 ML TOTAL WATER FROM FORMULA AND FLUSHES (28.2 ML/KG). MONITOR TF TOLERANCE AND DIRECTOR OF MOBILE MARKETING RECS.
[2025-01-30 11:18] LABS: Glucose, Whole Blood 115 mg/dL (60-115)
--- NOTE | 2025-01-30 11:24 | HO.PM.IMPN ---
Subjective Subjective Date of Service: 01/30/25 Interval History: Breathing markedly improved per patient. Does complain of sore throat Review of Systems Denies chest pain Admits shortness of breath that is worse with the exertion Denies nausea vomiting diarrhea Denies fever chills Physical Exam Vital Signs: Vital Signs: Last Vital Signs Temp 98.1 F 01/30/25 07:33 Pulse 80 01/30/25 08:01 Resp 16 01/30/25 08:01 BP 134/74 01/30/25 07:33 Pulse Ox 92 01/30/25 07:33 O2 Del Method Room Air 01/30/25 07:33 O2 Flow Rate 2 01/29/25 07:05 BMI result Body Mass Index 22.2 Const: Other: Awake alert able to speak in short sentences Resp: Other: Improved aeration at bases with decreased expiratory wheezes throughout Cardio: Other: No S4; positive S1-S2; no S3 murmurs rubs or gallops GI: Other: Soft nontender nondistended normoactive bowel sounds. G-tube site clean dry and intact Extrem: Other: Extremities without edema Objective Data Active Medications Acetaminophen (Acetaminophen 325 Mg Tablet) 650 mg PO Q6H PRN PRN Reason: Pain, Mild 1-3,fever,headache Last Admin: 01/29/25 17:15 Dose: 650 mg Documented By: SOLOMON Albuterol Sulfate (Albuterol Sulfate 90 Mcg 8 Gm Inhaler) 2 puff INHALE Q6H PRN PRN Reason: wheezing Albuterol/Ipratropium (Albuterol/Iprat 2.5/0.5mg 3 Ml Ampul.Neb) 3 ml INHALE RQ4H WHILE AWAKE [facility] Last Admin: 01/30/25 08:00 Dose: 3 ml Documented By: NEFTALY Apixaban (Apixaban 5 Mg Tablet) 5 mg PO BID [facility] Last Admin: 01/30/25 08:09 Dose: 5 mg Documented By: ANDREAS Ascorbic Acid (Ascorbic Acid 250 Mg Tablet) 250 mg PO DAILY [facility] Last Admin: 01/30/25 08:09 Dose: 250 mg Documented By: ANDREAS Bictegravir/Emtricitabine/Tenofovir (Bictegrav/Emtricit/Tenofov Ala Tablet) 1 tab PO DAILY [facility] Last Admin: 01/30/25 08:09 Dose: 1 tab Documented By: ANDREAS Calcium Carbonate (Calcium Carbonate 750 Mg Tab.Chew) 750 mg PO Q4H PRN PRN Reason: Heartburn Calcium Carbonate/Cholecalciferol (Calcium + Vitamin D 250 Mg Tablet) 500 mg PO BID@1200,1800 [facility] Last Admin: 01/29/25 17:16 Dose: 500 mg Documented By: SOLOMON Ceftriaxone Sodium (Ceftriaxone Sodium 1 Gm Vial) 1 gm IVPUSH Q24H [facility] Last Admin: 01/29/25 17:15 Dose: 1 gm Documented By: SOLOMON Clonazepam (Clonazepam 1 Mg Tablet) 1 mg PO DAILY [facility] Last Admin: 01/30/25 08:09 Dose: 1 mg Documented By: ANDREAS Dextrose (Dextrose 50 % 25 Gm/50 Ml Syringe) 25 gm IVPUSH Q15M PRN; Protocol PRN Reason: per Hypoglycemia Standing Ord. Gabapentin (Gabapentin 600 Mg Tablet) 600 mg PO TID [facility] Last Admin: 01/30/25 08:09 Dose: 600 mg Documented By: ANDREAS Glucose (Glucose Gel 15 Gm Gel..Gram.) 15 gm PO Q15M PRN; Protocol PRN Reason: per Hypoglycemia Standing Ord. Glycopyrrolate (Glycopyrrolate 1 Mg Tablet) 1 mg PO BID [facility] Last Admin: 01/30/25 08:09 Dose: 1 mg Documented By: ANDREAS Fluconazole 100 mg/ IV (Miscellaneous Supplies) 50 mls @ 50 mls/hr IV Q24H [facility] Insulin Human Lispro (Insulin Lispro 100 Unit/Ml 3 Ml Vial) 0 unit SUBCUT QIDACHS [facility]; Protocol Last Admin: 01/30/25 08:09 Dose: 2 unit Documented By: ANDREAS Magnesium Hydroxide (Milk Of Magnesia 30 Ml Oral.Susp) 30 ml PO DAILY PRN PRN Reason: Constipation Melatonin (Melatonin 3 Mg Tablet) 6 mg PO BEDTIME PRN PRN Reason: Insomnia Methylprednisolone Sodium Succinate (Methylprednisolone Sod Succ 125 Mg Vial) 60 mg IVPUSH Q6H [facility] Last Admin: 01/30/25 05:53 Dose: 60 mg Documented By: CASTILM Mirtazapine (Mirtazapine 30 Mg Tablet) 60 mg PO BEDTIME [facility] Last Admin: 01/29/25 20:07 Dose: 60 mg Documented By: CASTILM Non-Formulary Medication (Brimonidine-Timolol [Combigan]) 1 drop EYE-BOTH BID [facility] Non-Formulary Medication (Netarsudil-Latanoprost [Rocklatan]) 1 drop EYE-BOTH BEDTIME [facility] Non-Formulary Medication (Pilocarpine Hcl) 5 mg PO TID [facility] Non-Formulary Medication (Somatropin [Serostim]) 6 mg SUBCUT DAILY [facility] Non-Formulary Medication (Megestrol) 5 ml feeding tube DAILY [facility] Ondansetron HCl (Ondansetron Hcl 4 Mg/2 Ml Vial) 4 mg IVPUSH Q8H PRN PRN Reason: Nausea and Vomiting Oxycodone HCl (Oxycodone Hcl Immed Release 5 Mg Tablet) 5 mg G-TUBE Q4H PRN PRN Reason: Pain, Moderate(Pain Scale 4-6) Last Admin: 01/30/25 10:49 Dose: 5 mg Documented By: SAMREEN Risperidone (Risperidone 3 Mg Tablet) 3 mg PO BEDTIME [facility] Last Admin: 01/29/25 20:07 Dose: 3 mg Documented By: LISSY Sodium Chloride (0.9 % Sodium Chloride Flush 3 Ml Syringe) 3 ml IVFLUSH QSHIFT [facility] Last Admin: 01/30/25 08:12 Dose: 3 ml Documented By: ANDREAS Tamsulosin HCl (Tamsulosin Hcl 0.4 Mg Capsule) 0.4 mg PO BEDTIME [facility] Last Admin: 01/29/25 20:04 Dose: Not Given Documented By: LISSY Non-Admin Reason: not crushable to give per [facility] Labs 01/27/25 11:40 01/27/25 12:40 Labs: Laboratory Results - last 24 hr 01/29/25 01/29/25 01/29/25 11:22 15:31 20:02 POC Glucose 142 H 149 H 130 H 01/30/25 01/30/25 07:11 11:14 POC Glucose 157 H 115 Microbiology Microbiology Results: Microbiology 01/27/25 18:35 Blood Culture - Preliminary Blood - Venous No growth after 48 hours. 01/27/25 18:35 Blood Culture - Preliminary Blood - Venous No growth after 48 hours. Assessment and Plan (1) Asthma exacerbation: Status: Acute (2) HIV (human immunodeficiency virus infection): Status: Acute Plan 58 years old man with past medical history significant for asthma, HIV compliant with HARRTs (Sep 2023 -HIV viral load undetectable, CD4 627), dysphagia, s/p G-tube placement, chronic hepatitis-C, depression and essential hypertension was brought to the emergency department via ambulance complaining of worsening shortness of breath over the last 3 days associated with productive cough of brownish sputum and chest tightness. 1.COPD exacerbation -methylprednisolone 60 mg IV q.6 hours... -DuoNebs q.4 hours while awake -ceftriaxone/azithromycin (4) -supplemental O2 dc....RA -await negative cultures times 48 hours 2. Oral/esophageal candidiasis -Diflucan 200 mg loading dose given. 100 mg daily for 9 doses -magic mouthwash swish and swallow 3. HIV -stable and well compensated -continue outpatient therapies 4. Dysphagia -tube feedings as per nutrition Eliquis Full Code Will require ongoing hospitalization for IV antibiotics to treat COPD exacerbation Quality Stroke Does the patient have a stroke diagnosis?: No VTE Prior VTE?: No VTE Risk Level:: Medical - moderate - high VTE Device Contraindication: Treatment Not Indicated VTE Drug Contraindication: N/A - Med Ordered
[2025-01-30] MEDS: Calcium + Vitamin D 250 MG TABLET 500 MG PO ×2 (12:45→17:20)
--- NOTE | 2025-01-30 14:31 | MHC.CM.PN ---
EMR REVIEWED AND PER MD ROUNDS, PT HAS NOW DEVELOPED ORAL THRUSH. PT IS NOW INPATIENT STATUS, IMM DELIVERED.
[2025-01-30 17:09] LABS: Glucose, Whole Blood 144 mg/dL (60-115)
[2025-01-30] MEDS: cefTRIAXone sodium 1 GM VIAL IVPUSH (17:16)
[2025-01-30 19:48] LABS: Glucose, Whole Blood 159 mg/dL (60-115)
[2025-01-30] MEDS: Tamsulosin HCL 0.4 MG CAPSULE PO (21:09)
[2025-01-30] MEDS: risperiDONE 3 MG TABLET PO (21:09)
[2025-01-30] MEDS: Mirtazapine 30 MG TABLET 60 MG PO (21:09)
[2025-01-30] MEDS: Fluconazole in NaCl,Iso-Osm 100 MG in Container,Empty 0 ML 50 MG IV (21:10)
[2025-01-30] MEDS: Melatonin 3 MG TABLET 6 MG PO (21:11)
[2025-01-31] VITALS (10 sets, daily range): BP systolic 125–144; BP diastolic 78–90; PULSE 78–95; RESP 17–20; TEMP 36.4–37; O2SAT 90–94
[2025-01-31 06:18] LABS: MANUAL DIFF FLAG NO
[2025-01-31 06:57] LABS: Alanine Aminotransferase 237 U/L (0-40); Albumin Level 4.1 g/dL (3.5-5.0); Alkaline Phosphatase 98 U/L (39-117); Anion Gap 15 (12-20); Aspartate Amino Transferase 61 U/L (5-37); Bilirubin Total 0.5 mg/dL (0.0-1.0); Blood Urea Nitrogen 33 mg/dL (9-16); Calcium 8.3 mg/dL (8.4-10.2); Carbon Dioxide 20 mmol/L (22-29); Chloride 110 mmol/L (96-108); Creatinine Clr Calc Pharmacy 85.7; Estimated Glomerular Filt Rate > 60; Glucose Fasting 142 mg/dL (60-99); Potassium 4.6 mmol/L (3.3-5.1); Sodium 140 mmol/L (135-145); Total Protein 6.9 g/dL (6.5-8.0)
[2025-01-31 07:13] LABS: Basophils Percent Auto 0.1 % (0-2); Hematocrit 46.9 % (42.0-52.0); Hemoglobin 16.4 g/dl (14.0-18.0); Imm Gran Abs Auto 0.06 X10*3/uL (0.00-0.03); Imm Gran Pct Auto 0.7 % (0.0-0.4); Lymphocytes Absolute Auto 0.7 X10*3/uL (1.2-4.9); Lymphocytes Percent Auto 8.2 % (20-40); Mean Corpuscular Hemoglobin 33.1 pg (27.0-33.0); Mean Corpuscular Volume 94.6 fL (80.0-98.0); Mean Platelet Volume 11.3 fL (9.4-12.4); Monocytes Absolute Auto 0.6 X10*3/uL (0.1-1.2); Monocytes Percent Auto 6.7 % (2-11); Neutrophils Absolute Auto 7.3 x10*3/uL (2.0-8.3); Neutrophils Percent Auto 84.3 % (45-73); Platelet Count 182 X10*3/uL (160-400); Red Blood Count 4.96 X10*6/uL (4.60-5.80); Red Cell Distribution Width 13.2 % (11.0-16.0); White Blood Count 8.6 X10*3/uL (4.8-10.8)
[2025-01-31 07:17] LABS: Glucose, Whole Blood 140 mg/dL (60-115)
[2025-01-31] MEDS: Albuterol/Iprat 2.5/0.5MG 3 ML AMPUL.NEB INHALE ×4 (07:45→18:50)
--- NOTE | 2025-01-31 09:11 | HO.PM.IMPN ---
Subjective Subjective Date of Service: 01/31/25 Interval History: Continues to improve. Liver function tests mildly elevated after IV Diflucan Review of Systems Denies chest pain Admits shortness of breath that is worse with the exertion Denies nausea vomiting diarrhea Denies fever chills Physical Exam Vital Signs: Vital Signs: Last Vital Signs Temp 98.6 F 01/31/25 07:47 Pulse 88 01/31/25 07:47 Resp 18 01/31/25 07:47 BP 144/90 H 01/31/25 07:47 Pulse Ox 93 01/31/25 07:47 O2 Del Method Room Air 01/31/25 07:47 O2 Flow Rate 2 01/31/25 03:12 BMI result Body Mass Index 22.2 Const: Other: Awake alert able to speak in short sentences Resp: Other: Improved aeration at bases with decreased expiratory wheezes throughout Cardio: Other: No S4; positive S1-S2; no S3 murmurs rubs or gallops GI: Other: Soft nontender nondistended normoactive bowel sounds. G-tube site clean dry and intact Extrem: Other: Extremities without edema Objective Data Active Medications Acetaminophen (Acetaminophen 325 Mg Tablet) 650 mg PO Q6H PRN PRN Reason: Pain, Mild 1-3,fever,headache Last Admin: 01/29/25 17:15 Dose: 650 mg Documented By: SOLOMON Albuterol Sulfate (Albuterol Sulfate 90 Mcg 8 Gm Inhaler) 2 puff INHALE Q6H PRN PRN Reason: wheezing Albuterol/Ipratropium (Albuterol/Iprat 2.5/0.5mg 3 Ml Ampul.Neb) 3 ml INHALE RQ4H WHILE AWAKE [facility] Last Admin: 01/31/25 07:45 Dose: 3 ml Documented By: ELSA Apixaban (Apixaban 5 Mg Tablet) 5 mg PO BID [facility] Last Admin: 01/30/25 21:09 Dose: 5 mg Documented By: KASIA Ascorbic Acid (Ascorbic Acid 250 Mg Tablet) 250 mg PO DAILY [facility] Last Admin: 01/30/25 08:09 Dose: 250 mg Documented By: ANDREAS Bictegravir/Emtricitabine/Tenofovir (Bictegrav/Emtricit/Tenofov Ala Tablet) 1 tab PO DAILY [facility] Last Admin: 01/30/25 08:09 Dose: 1 tab Documented By: ANDREAS Calcium Carbonate (Calcium Carbonate 750 Mg Tab.Chew) 750 mg PO Q4H PRN PRN Reason: Heartburn Calcium Carbonate/Cholecalciferol (Calcium + Vitamin D 250 Mg Tablet) 500 mg PO BID@1200,1800 [facility] Last Admin: 01/30/25 17:20 Dose: 500 mg Documented By: ANDREAS Ceftriaxone Sodium (Ceftriaxone Sodium 1 Gm Vial) 1 gm IVPUSH Q24H [facility] Last Admin: 01/30/25 17:16 Dose: 1 gm Documented By: ANDREAS Clonazepam (Clonazepam 1 Mg Tablet) 1 mg PO DAILY [facility] Last Admin: 01/30/25 08:09 Dose: 1 mg Documented By: ANDREAS Dextrose (Dextrose 50 % 25 Gm/50 Ml Syringe) 25 gm IVPUSH Q15M PRN; Protocol PRN Reason: per Hypoglycemia Standing Ord. Gabapentin (Gabapentin 600 Mg Tablet) 600 mg PO TID [facility] Last Admin: 01/30/25 21:09 Dose: 600 mg Documented By: KASIA Glucose (Glucose Gel 15 Gm Gel..Gram.) 15 gm PO Q15M PRN; Protocol PRN Reason: per Hypoglycemia Standing Ord. Glycopyrrolate (Glycopyrrolate 1 Mg Tablet) 1 mg PO BID [facility] Last Admin: 01/30/25 21:09 Dose: 1 mg Documented By: KASIA Fluconazole 100 mg/ IV (Miscellaneous Supplies) 50 mls @ 50 mls/hr IV Q24H [facility] Last Infusion: 01/30/25 22:47 Dose: Infused Documented By: KASIA Insulin Human Lispro (Insulin Lispro 100 Unit/Ml 3 Ml Vial) 0 unit SUBCUT QIDACHS [facility]; Protocol Last Admin: 01/31/25 08:06 Dose: Not Given Documented By: LEO Non-Admin Reason: No Insulin Coverage Lidocaine/Diphenhydr/Alum/Mg/Simeth (Mag&Al/Sim/Diphenhyd/Lidocaine 10 Ml Oral.Susp) 10 ml PO Q4H PRN; Protocol PRN Reason: Sore Throat Magnesium Hydroxide (Milk Of Magnesia 30 Ml Oral.Susp) 30 ml PO DAILY PRN PRN Reason: Constipation Melatonin (Melatonin 3 Mg Tablet) 6 mg PO BEDTIME PRN PRN Reason: Insomnia Last Admin: 01/30/25 21:11 Dose: 6 mg Documented By: KASIA Methylprednisolone Sodium Succinate (Methylprednisolone Sod Succ 125 Mg Vial) 60 mg IVPUSH Q6H [facility] Last Admin: 01/31/25 05:58 Dose: 60 mg Documented By: KASIA Mirtazapine (Mirtazapine 30 Mg Tablet) 60 mg PO BEDTIME [facility] Last Admin: 01/30/25 21:09 Dose: 60 mg Documented By: KASIA Non-Formulary Medication (Brimonidine-Timolol [Combigan]) 1 drop EYE-BOTH BID [facility] Non-Formulary Medication (Netarsudil-Latanoprost [Rocklatan]) 1 drop EYE-BOTH BEDTIME [facility] Non-Formulary Medication (Pilocarpine Hcl) 5 mg PO TID [facility] Non-Formulary Medication (Somatropin [Serostim]) 6 mg SUBCUT DAILY [facility] Non-Formulary Medication (Megestrol) 5 ml feeding tube DAILY [facility] Ondansetron HCl (Ondansetron Hcl 4 Mg/2 Ml Vial) 4 mg IVPUSH Q8H PRN PRN Reason: Nausea and Vomiting Oxycodone HCl (Oxycodone Hcl Immed Release 5 Mg Tablet) 5 mg G-TUBE Q4H PRN PRN Reason: Pain, Moderate(Pain Scale 4-6) Last Admin: 01/30/25 14:34 Dose: 5 mg Documented By: SAMREEN Risperidone (Risperidone 3 Mg Tablet) 3 mg PO BEDTIME [facility] Last Admin: 01/30/25 21:09 Dose: 3 mg Documented By: KASIA Sodium Chloride (0.9 % Sodium Chloride Flush 3 Ml Syringe) 3 ml IVFLUSH QSHIFT [facility] Last Admin: 01/30/25 21:35 Dose: 3 ml Documented By: KASIA Tamsulosin HCl (Tamsulosin Hcl 0.4 Mg Capsule) 0.4 mg PO BEDTIME [facility] Last Admin: 01/30/25 21:09 Dose: 0.4 mg Documented By: KASIA Labs 01/31/25 05:45 01/31/25 05:45 Labs: Laboratory Results - last 24 hr 01/30/25 01/30/25 01/30/25 11:14 17:06 19:26 MCV MCH MCHC RDW Plt Count MPV Immature Gran % (Auto) Neut % (Auto) Lymph % (Auto) [place] % (Auto) Eos % (Auto) Baso % (Auto) Lymph # (Auto) [place] # (Auto) Eos # (Auto) Baso # (Auto) Abs Immat Gran (auto) Absolute Neuts (auto) Absolute Nucleated RBC Nucleated RBC % (auto) Anion Gap Estim Creat Clear Calc Estimated GFR POC Glucose 115 144 H 159 H Fasting Glucose Calcium Total Bilirubin AST ALT Alkaline Phosphatase Total Protein Albumin 01/31/25 01/31/25 05:45 07:13 MCV 94.6 MCH 33.1 H MCHC 35.0 RDW 13.2 Plt Count 182 MPV 11.3 Immature Gran % (Auto) 0.7 H Neut % (Auto) 84.3 H Lymph % (Auto) 8.2 L [place] % (Auto) 6.7 Eos % (Auto) 0.0 Baso % (Auto) 0.1 Lymph # (Auto) 0.7 L [place] # (Auto) 0.6 Eos # (Auto) 0.0 Baso # (Auto) 0.0 Abs Immat Gran (auto) 0.06 H Absolute Neuts (auto) 7.3 Absolute Nucleated RBC 0.000 Nucleated RBC % (auto) 0.0 Anion Gap 15 Estim Creat Clear Calc 85.7 Estimated GFR > 60 POC Glucose 140 H Fasting Glucose 142 H Calcium 8.3 L D Total Bilirubin 0.5 AST 61 H ALT 237 H Alkaline Phosphatase 98 Total Protein 6.9 Albumin 4.1 Assessment and Plan (1) Asthma exacerbation: Status: Acute Plan 58 years old man with past medical history significant for asthma, HIV compliant with HARRTs (Sep 2023 -HIV viral load undetectable, CD4 627), dysphagia, s/p G-tube placement, chronic hepatitis-C, depression and essential hypertension was brought to the emergency department via ambulance complaining of worsening shortness of breath over the last 3 days associated with productive cough of brownish sputum and chest tightness. 1.COPD exacerbation -methylprednisolone 60 mg IV q.6 hours... -DuoNebs q.4 hours while awake -ceftriaxone/azithromycin (5) -supplemental O2 dc....RA -await negative cultures times 48 hours 2. Oral/esophageal candidiasis -given elevation of liver enzymes we will DC fluconazole in favor of nystatin swish and swallow. -magic mouthwash swish and swallow 3. HIV -stable and well compensated -continue outpatient therapies 4. Dysphagia -tube feedings as per nutrition Eliquis Full Code Will require ongoing hospitalization for IV antibiotics to treat COPD exacerbation Quality Stroke Does the patient have a stroke diagnosis?: No VTE Prior VTE?: No VTE Risk Level:: Medical - moderate - high VTE Device Contraindication: Treatment Not Indicated VTE Drug Contraindication: N/A - Med Ordered
[2025-01-31] MEDS: 0.9 % Sodium Chloride Flush 3 ML SYRINGE IVFLUSH ×3 (09:34→21:52)
[2025-01-31] MEDS: oxyCODONE HCl Immed Release 5 MG TABLET G-TUBE (09:35)
[2025-01-31] MEDS: Ascorbic Acid 250 MG TABLET PO (09:36)
[2025-01-31] MEDS: Bictegrav/Emtricit/Tenofov Ala TABLET 1 TAB PO (09:36)
[2025-01-31] MEDS: Apixaban 5 MG TABLET PO ×2 (09:36→21:28)
[2025-01-31] MEDS: Glycopyrrolate 1 MG TABLET PO ×2 (09:36→21:28)
[2025-01-31] MEDS: clonazePAM 1 MG TABLET PO (09:36)
[2025-01-31] MEDS: Gabapentin 600 MG TABLET PO ×3 (09:36→21:28)
[2025-01-31 11:10] LABS: Glucose, Whole Blood 170 mg/dL (60-115)
[2025-01-31] MEDS: Insulin Lispro 100 UNIT/ML 3 ML VIAL SUBCUT ×2 (11:41→21:35)
[2025-01-31] MEDS: Nystatin Oral Susp 500,000 UNIT/5 ML ORAL.SUSP 200000 UNIT BUCCAL ×4 (11:42→21:49)
[2025-01-31] MEDS: Calcium + Vitamin D 250 MG TABLET 500 MG PO ×2 (11:43→17:32)
[2025-01-31] MEDS: ondansetron HCL 4 MG/2 ML VIAL IVPUSH (15:04)
[2025-01-31 16:20] LABS: Glucose, Whole Blood 140 mg/dL (60-115)
[2025-01-31] MEDS: Magnesium Hydrox/Alum Hydrox 30 ML ORAL.SUSP PO (17:32)
[2025-01-31] MEDS: Milk of Magnesia 30 ML ORAL.SUSP PO (17:32)
[2025-01-31] MEDS: cefTRIAXone sodium 1 GM VIAL IVPUSH (17:32)
[2025-01-31 19:55] LABS: Glucose, Whole Blood 178 mg/dL (60-115)
[2025-01-31] MEDS: risperiDONE 3 MG TABLET PO (21:28)
[2025-01-31] MEDS: Mirtazapine 30 MG TABLET 60 MG PO (21:28)
[2025-01-31] MEDS: Tamsulosin HCL 0.4 MG CAPSULE PO (21:29)
[2025-02-01] VITALS (9 sets, daily range): BP systolic 116–131; BP diastolic 76–84; PULSE 81–98; RESP 16–20; TEMP 36.2–36.9; O2SAT 88–94
[2025-02-01 06:57] LABS: Alanine Aminotransferase 283 U/L (0-40); Albumin Level 4.2 g/dL (3.5-5.0); Alkaline Phosphatase 102 U/L (39-117); Anion Gap 16 (12-20); Aspartate Amino Transferase 60 U/L (5-37); Bilirubin Total 0.5 mg/dL (0.0-1.0); Blood Urea Nitrogen 36 mg/dL (9-16); Calcium 8.4 mg/dL (8.4-10.2); Carbon Dioxide 22 mmol/L (22-29); Chloride 106 mmol/L (96-108); Creatinine Clr Calc Pharmacy 75.4; Estimated Glomerular Filt Rate > 60; Glucose Fasting 148 mg/dL (60-99); Potassium 4.5 mmol/L (3.3-5.1); Sodium 139 mmol/L (135-145); Total Protein 7.4 g/dL (6.5-8.0)
[2025-02-01 07:31] LABS: Glucose, Whole Blood 152 mg/dL (60-115)
[2025-02-01] MEDS: Albuterol/Iprat 2.5/0.5MG 3 ML AMPUL.NEB INHALE ×4 (07:35→18:32)
[2025-02-01] MEDS: Insulin Lispro 100 UNIT/ML 3 ML VIAL SUBCUT (07:37)
[2025-02-01] MEDS: Nystatin Oral Susp 500,000 UNIT/5 ML ORAL.SUSP 200000 UNIT BUCCAL ×4 (07:38→21:58)
[2025-02-01] MEDS: 0.9 % Sodium Chloride Flush 3 ML SYRINGE IVFLUSH ×2 (07:38→17:50)
[2025-02-01] MEDS: Apixaban 5 MG TABLET PO ×2 (07:39→21:57)
[2025-02-01] MEDS: Bictegrav/Emtricit/Tenofov Ala TABLET 1 TAB PO (07:39)
[2025-02-01] MEDS: clonazePAM 1 MG TABLET PO (07:39)
[2025-02-01] MEDS: Glycopyrrolate 1 MG TABLET PO ×2 (07:39→21:57)
[2025-02-01] MEDS: Gabapentin 600 MG TABLET PO ×3 (07:39→21:57)
[2025-02-01] MEDS: Ascorbic Acid 250 MG TABLET PO (07:39)
[2025-02-01 11:34] LABS: Glucose, Whole Blood 133 mg/dL (60-115)
[2025-02-01] MEDS: Magnesium Hydrox/Alum Hydrox 30 ML ORAL.SUSP PO (11:35)
[2025-02-01] MEDS: Calcium + Vitamin D 250 MG TABLET 500 MG PO ×2 (11:35→17:51)
[2025-02-01] MEDS: Mag&Al/Sim/Diphenhyd/Lidocaine 10 ML ORAL.SUSP PO (15:03)
[2025-02-01] MEDS: Acetaminophen 325 MG TABLET 650 MG PO (16:00)
[2025-02-01 16:24] LABS: Glucose, Whole Blood 137 mg/dL (60-115)
[2025-02-01] MEDS: cefTRIAXone sodium 1 GM VIAL IVPUSH (17:50)
--- NOTE | 2025-02-01 19:16 | P.PNIM_ITS ---
Subjective Subjective Date of Service: 02/01/25 Interval History: No acute events overnight AST down trending, ALT slightly up Pt denies abdominal pain, nausea/vomiting No throat pain or difficulty swallowing Reports breathing is much better, denies SOB Review of Systems Review of Systems: Yes all other systems are reviewed and are negative Physical Exam 2 Vital Signs: Vital Signs: Last Vital Signs Temp 98.1 F 02/01/25 15:13 Pulse 92 02/01/25 18:32 Resp 18 02/01/25 18:32 BP 131/84 02/01/25 15:13 Pulse Ox 91 L 02/01/25 15:13 O2 Del Method Nasal Cannula 02/01/25 15:13 O2 Flow Rate 2.0 02/01/25 15:13 BMI result Body Mass Index 22.2 General: AOx3, frail, no acute distress Resp: CTA bilaterally CVS: S1, S2, RRR GI: +BS, NT, no distention, G-tube in place Skin: Warm, dry Neuro: Cranial nerves II-XII grossly intact bilaterally. Motor grossly intact bilaterally Extremities: No edema Psych: Calm and cooperative Objective Data Active Medications Acetaminophen (Acetaminophen 325 Mg Tablet) 650 mg PO Q6H PRN PRN Reason: Pain, Mild 1-3,fever,headache Last Admin: 02/01/25 16:00 Dose: 650 mg Documented By: LEO Al Hydroxide/Mg Hydroxide (Magnesium Hydrox/Alum Hydrox 30 Ml Oral.Susp) 30 ml PO Q4H PRN PRN Reason: Heartburn Last Admin: 02/01/25 11:35 Dose: 30 ml Documented By: LEO Albuterol Sulfate (Albuterol Sulfate 90 Mcg 8 Gm Inhaler) 2 puff INHALE Q6H PRN PRN Reason: wheezing Albuterol/Ipratropium (Albuterol/Iprat 2.5/0.5mg 3 Ml Ampul.Neb) 3 ml INHALE RQ4H WHILE AWAKE [facility] Last Admin: 02/01/25 18:32 Dose: 3 ml Documented By: DONNELL Apixaban (Apixaban 5 Mg Tablet) 5 mg PO BID [facility] Last Admin: 02/01/25 07:39 Dose: 5 mg Documented By: LEO Ascorbic Acid (Ascorbic Acid 250 Mg Tablet) 250 mg PO DAILY [facility] Last Admin: 02/01/25 07:39 Dose: 250 mg Documented By: LEO Bictegravir/Emtricitabine/Tenofovir (Bictegrav/Emtricit/Tenofov Ala Tablet) 1 tab PO DAILY [facility] Last Admin: 02/01/25 07:39 Dose: 1 tab Documented By: LEO Calcium Carbonate (Calcium Carbonate 750 Mg Tab.Chew) 750 mg PO Q4H PRN PRN Reason: Heartburn Calcium Carbonate/Cholecalciferol (Calcium + Vitamin D 250 Mg Tablet) 500 mg PO BID@1200,1800 [facility] Last Admin: 02/01/25 17:51 Dose: 500 mg Documented By: LEO Ceftriaxone Sodium (Ceftriaxone Sodium 1 Gm Vial) 1 gm IVPUSH Q24H [facility] Last Admin: 02/01/25 17:50 Dose: 1 gm Documented By: LEO Clonazepam (Clonazepam 1 Mg Tablet) 1 mg PO DAILY [facility] Last Admin: 02/01/25 07:39 Dose: 1 mg Documented By: LEO Dextrose (Dextrose 50 % 25 Gm/50 Ml Syringe) 25 gm IVPUSH Q15M PRN; Protocol PRN Reason: per Hypoglycemia Standing Ord. Gabapentin (Gabapentin 600 Mg Tablet) 600 mg PO TID [facility] Last Admin: 02/01/25 15:04 Dose: 600 mg Documented By: LEO Glucose (Glucose Gel 15 Gm Gel..Gram.) 15 gm PO Q15M PRN; Protocol PRN Reason: per Hypoglycemia Standing Ord. Glycopyrrolate (Glycopyrrolate 1 Mg Tablet) 1 mg PO BID [facility] Last Admin: 02/01/25 07:39 Dose: 1 mg Documented By: LEO Insulin Human Lispro (Insulin Lispro 100 Unit/Ml 3 Ml Vial) 0 unit SUBCUT QIDACHS [facility]; Protocol Last Admin: 02/01/25 17:38 Dose: Not Given Documented By: LEO Non-Admin Reason: No Insulin Coverage Lidocaine/Diphenhydr/Alum/Mg/Simeth (Mag&Al/Sim/Diphenhyd/Lidocaine 10 Ml Oral.Susp) 10 ml PO Q4H PRN; Protocol PRN Reason: Sore Throat Last Admin: 02/01/25 15:03 Dose: 10 ml Documented By: LEO Magnesium Hydroxide (Milk Of Magnesia 30 Ml Oral.Susp) 30 ml PO DAILY PRN PRN Reason: Constipation Last Admin: 01/31/25 17:32 Dose: 30 ml Documented By: LEO Melatonin (Melatonin 3 Mg Tablet) 6 mg PO BEDTIME PRN PRN Reason: Insomnia Last Admin: 01/30/25 21:11 Dose: 6 mg Documented By: KASIA Mirtazapine (Mirtazapine 30 Mg Tablet) 60 mg PO BEDTIME [facility] Last Admin: 01/31/25 21:28 Dose: 60 mg Documented By: KASIA Non-Formulary Medication (Brimonidine-Timolol [Combigan]) 1 drop EYE-BOTH BID [facility] Non-Formulary Medication (Netarsudil-Latanoprost [Rocklatan]) 1 drop EYE-BOTH BEDTIME [facility] Non-Formulary Medication (Pilocarpine Hcl) 5 mg PO TID [facility] Non-Formulary Medication (Somatropin [Serostim]) 6 mg SUBCUT DAILY [facility] Non-Formulary Medication (Megestrol) 5 ml feeding tube DAILY [facility] Nystatin (Nystatin Oral Susp 500,000 Unit/5 Ml Oral.Susp) 200,000 unit BUCCAL QID [facility]; Protocol Last Admin: 02/01/25 17:50 Dose: 200,000 unit Documented By: LEO Ondansetron HCl (Ondansetron Hcl 4 Mg/2 Ml Vial) 4 mg IVPUSH Q8H PRN PRN Reason: Nausea and Vomiting Last Admin: 01/31/25 15:04 Dose: 4 mg Documented By: LEO Oxycodone HCl (Oxycodone Hcl Immed Release 5 Mg Tablet) 5 mg G-TUBE Q4H PRN PRN Reason: Pain, Moderate(Pain Scale 4-6) Last Admin: 01/31/25 09:35 Dose: 5 mg Documented By: LEO Prednisone (Prednisone 20 Mg Tablet) 40 mg PO DAILY [facility] Risperidone (Risperidone 3 Mg Tablet) 3 mg PO BEDTIME [facility] Last Admin: 01/31/25 21:28 Dose: 3 mg Documented By: KASIA Sodium Chloride (0.9 % Sodium Chloride Flush 3 Ml Syringe) 3 ml IVFLUSH QSHIFT [facility] Last Admin: 02/01/25 17:50 Dose: 3 ml Documented By: LEO Tamsulosin HCl (Tamsulosin Hcl 0.4 Mg Capsule) 0.4 mg PO BEDTIME [facility] Last Admin: 01/31/25 21:29 Dose: 0.4 mg Documented By: KASIA Labs 01/31/25 05:45 02/01/25 06:15 Labs: Laboratory Results - last 24 hr 01/31/25 02/01/25 02/01/25 19:39 05:50 06:15 Hold Purple Top SEE NOTE Anion Gap 16 Estim Creat Clear Calc 75.4 Estimated GFR > 60 POC Glucose 178 H Fasting Glucose 148 H Calcium 8.4 Total Bilirubin 0.5 AST 60 H ALT 283 H Alkaline Phosphatase 102 Total Protein 7.4 Albumin 4.2 02/01/25 02/01/25 02/01/25 07:27 11:29 16:20 Hold Purple Top Anion Gap Estim Creat Clear Calc Estimated GFR POC Glucose 152 H 133 H 137 H Fasting Glucose Calcium Total Bilirubin AST ALT Alkaline Phosphatase Total Protein Albumin Assessment and Plan (1) Asthma exacerbation: Status: Acute Plan 58 years old man with past medical history significant for asthma, HIV compliant with [facility] (Sep 2023 -HIV viral load undetectable, CD4 627), dysphagia, s/p G- tube placement, chronic hepatitis-C, depression and essential hypertension was brought to the emergency department via ambulance complaining of worsening shortness of breath over the last 3 days associated with productive cough of brownish sputum and chest tightness. COPD exacerbation DuoNebs q.4 hours while awake Continue ceftriaxone/azithromycin (7) Cultures negative after 48 hours Oral/esophageal candidiasis Given fluconazole IV with resultant elevation of liver enzymes AST 61-->60, ALFT 237-->283 Continue magic mouthwash swish and swallow Trend LFTs HIV Stable and well compensated Continue outpatient therapies Dysphagia Tube feedings as per nutrition BPH Continue tamsulosin DVT prophylasix: On Eliquis Full Code Will require ongoing hospitalization for monitor Quality Stroke Does the patient have a stroke diagnosis?: No VTE Prior VTE?: No VTE Risk Level:: Medical - moderate - high VTE Device Contraindication: Treatment Not Indicated VTE Drug Contraindication: N/A - Med Ordered
[2025-02-01 20:02] LABS: Glucose, Whole Blood 119 mg/dL (60-115)
[2025-02-01] MEDS: oxyCODONE HCl Immed Release 5 MG TABLET G-TUBE (21:57)
[2025-02-01] MEDS: Mirtazapine 30 MG TABLET 60 MG PO (21:57)
[2025-02-01] MEDS: risperiDONE 3 MG TABLET PO (21:57)
[2025-02-01] MEDS: Tamsulosin HCL 0.4 MG CAPSULE PO (21:57)
[2025-02-02] MEDS: 0.9 % Sodium Chloride Flush 3 ML SYRINGE IVFLUSH ×2 (00:04→09:37)
[2025-02-02 03:24] VITALS: BP 110/73; PULSE 85; RESP 20; TEMP 36.7; O2SAT 93
[2025-02-02] MEDS: oxyCODONE HCl Immed Release 5 MG TABLET G-TUBE (04:09)
[2025-02-02 06:55] LABS: Alanine Aminotransferase 241 U/L (0-40); Albumin Level 3.8 g/dL (3.5-5.0); Alkaline Phosphatase 96 U/L (39-117); Anion Gap 14 (12-20); Aspartate Amino Transferase 46 U/L (5-37); Bilirubin Total 0.5 mg/dL (0.0-1.0); Blood Urea Nitrogen 39 mg/dL (9-16); Carbon Dioxide 23 mmol/L (22-29); Chloride 106 mmol/L (96-108); Estimated Glomerular Filt Rate > 60; Glucose Random 120 mg/dL (60-115); Potassium 3.9 mmol/L (3.3-5.1); Sodium 139 mmol/L (135-145); Total Protein 6.5 g/dL (6.5-8.0)
[2025-02-02 07:30] LABS: Glucose, Whole Blood 128 mg/dL (60-115)
[2025-02-02 07:58] VITALS: BP 115/71; PULSE 82; RESP 12; TEMP 36.6; O2SAT 93
--- NOTE | 2025-02-02 09:09 | MHC.CM.PN ---
CM MET WITH PT WITH A LAST PULLER TO DISCUSS DC PLANS PT IS AWARE HE WILL BE CLEARED TO DC TODAY HE STATES HE HAS ALREADY CALLED HIS ISSUER, AND SHE WILL PROVIDE HIS TRANSPORT AT [facility] HAS BEEN INFORMED OF PENDING DC
[2025-02-02] MEDS: Nystatin Oral Susp 500,000 UNIT/5 ML ORAL.SUSP 200000 UNIT BUCCAL (09:34)
[2025-02-02] MEDS: clonazePAM 1 MG TABLET PO (09:36)
[2025-02-02] MEDS: Apixaban 5 MG TABLET PO (09:36)
[2025-02-02] MEDS: predniSONE 20 MG TABLET 40 MG PO (09:37)
[2025-02-02] MEDS: Glycopyrrolate 1 MG TABLET PO (09:37)
[2025-02-02] MEDS: Bictegrav/Emtricit/Tenofov Ala TABLET 1 TAB PO (09:37)
[2025-02-02] MEDS: Gabapentin 600 MG TABLET PO (09:37)
[2025-02-02] MEDS: Ascorbic Acid 250 MG TABLET PO (09:37)
--- NOTE | 2025-02-02 10:01 | P.DS_ITS ---
DS: Providers Provider Date of Service: 02/02/25 Date of admission: 01/30/25 12:14 Date of discharge: 02/02/25 Primary care physician: Terese Keenan MD DS: Diagnosis Discharge Diagnosis (1) Asthma exacerbation: Status: Acute DS: Summary Hospital Course Hospital Course: From admission HPI: 59-year-old male with past medical history of chronic respiratory failure with hypoxia on home O2, pleural effusion status post decortication, HFrEF with EF of 40-50% and HIV presents with worsening shortness of breath over the last week. He states initially it was managed by his home inhalers however got to the point where he could not walk across his room without being extremely short of breath. He denies fever and chills in the preceding week however does say he has a productive cough. He denies tobacco or alcohol use. In the emergency room chest x-ray failed to demonstrate presence of an infiltrate however given his work of breathing he will be admitted for treatment of same Hospital course: Pt was admitted to the hospital and treated for asthma exacerbation Solu-Medrol IV, DuoNebs, and empirically with ceftriaxone and azithromycin. Breathing SOB improved, the pt developed sore throat after 3 days and was treated with IV fluconazole for oral candidiasis. Pt then developed mild transaminitis and treatment was changed to magic mouthwash swish and swallow. LFTs were trended and were noted to decline yesterday and today. Pt reports he is currently back to baseline as to respiratory status, and no longer complains of SOB, difficulty breathing, sore throat, or difficulty swallowing. Pt has completed his course of azithromycin, and will be discharged on cefuroxime 250 mg b.i.d. x3 days, a short prednisone taper of 40 mg daily x3 days, and clotrimazole 10 mg dissolvable troches 5 times a day x6 days. For HIV, stable and well compensated, continue outpatient therapies For dysphagia pt was kept NPO and fed through tube feeding with Jevity 1.0 at max cool rate 65 mL/hr continuous with free water flushes 120 mL q.6 hours. 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 Will undergo evaluation in February to assess dysphagia and whether or not can maintain proper nutritional intake on a solid diet, as well as whether G-tube will be pulled up. Can continue home soft diet. Follow up outpatient in February. For BPH continue tamsulosin For DVT prophylaxis continue Eliquis Time Attestation Discharge Coordination Time (in mins): 35 Quality: Safe Use of Opioids Does Pt have an Active Cancer Diagnosis on the Problem List?: No Quality: Stroke Does the patient have a stroke diagnosis?: No Physical Exam Vital Signs: Vital Signs: Last Vital Signs Temp 98 F 02/02/25 07:58 Pulse 82 02/02/25 07:58 Resp 12 02/02/25 07:58 BP 115/71 02/02/25 07:58 Pulse Ox 93 02/02/25 07:58 O2 Del Method Nasal Cannula 02/02/25 07:58 O2 Flow Rate 2 02/02/25 07:58 BMI result Body Mass Index 22.2 General: AOx3, weak, frail, in no acute distress Mouth: Small amount of white patches on mouth, mucous membranes, and back of throat Resp: Diffuse coarse expiratory breath sounds bilaterally CVS: S1, S2, RRR GI: +BS, NT, no distention Skin: Warm, dry Neuro: Cranial nerves II-XII grossly intact bilaterally. Motor grossly intact bilaterally, though globally weak Extremities: No edema Psych: Appropriate affect DS: Data Data Completed and Pending Completed studies during hospitalization [Text1]: Procedures Drainage of Left Lung with Drainage Device, Open Approach (12/30/22) Drainage of Spinal Canal, Percutaneous Approach, Diagnostic (03/15/24) Excision of Esophagogastric Junction, Via Natural or Artificial Opening Endoscopic, Diagnostic (07/16/23) Excision of Stomach, Pylorus, Via Natural or Artificial Opening Endoscopic, Diagnostic (07/16/23) Excision of Upper Esophagus, Via Natural or Artificial Opening Endoscopic, Diagnostic (07/16/23) Fluoroscopy of Spinal Cord (03/15/24) Insertion of Endotracheal Airway into Trachea, Via Natural or Artificial Opening (12/30/22) Insertion of Feeding Device into Stomach, Percutaneous Approach (07/27/23) Insertion of Infusion Device into Superior Vena Cava, Percutaneous Approach (12/30/22) Insertion of Infusion Device into Upper Vein, Percutaneous Approach (07/16/23) Introduction of Nutritional Substance into Upper GI, Via Natural or Artificial Opening (07/27/23) Introduction of Vasopressor into Central Vein, Percutaneous Approach (12/30/22) Release Left Lung, Open Approach (12/30/22) Reposition Left Tibia with Internal Fixation Device, Open Approach (02/12/22) Respiratory Ventilation, 24-96 Consecutive Hours (12/30/22) Ultrasonography of Superior Vena Cava, Guidance (12/30/22) Labs on day of discharge: Laboratory Results - last 24 hr 02/01/25 02/01/25 02/01/25 11:29 16:20 19:46 Hold Purple Top Sodium Potassium Chloride Carbon Dioxide Anion Gap BUN Creatinine Estim Creat Clear Calc Estimated GFR POC Glucose 133 H 137 H 119 H Random Glucose Calcium Total Bilirubin AST ALT Alkaline Phosphatase Total Protein Albumin 02/02/25 02/02/25 02/02/25 05:51 06:32 07:26 Hold Purple Top SEE NOTE Sodium 139 Potassium 3.9 Chloride 106 Carbon Dioxide 23 Anion Gap 14 BUN 39 H Creatinine 0.95 Estim Creat Clear Calc 73.0 Estimated GFR > 60 POC Glucose 128 H Random Glucose 120 H Calcium 8.0 L Total Bilirubin 0.5 AST 46 H ALT 241 H Alkaline Phosphatase 96 Total Protein 6.5 Albumin 3.8 Discharge Plan Discharge Anticipated Discharge Date/Time: 02/02/25 09:33 Patient Disposition: Home, Self-Care Discharge Diagnosis: Asthma exacerbation Referrals: Terese Rivera MD [Primary Care Provider] - 1 Week Discharge Medications: New clotrimazole 10 mg klaudia 10 mg mucous membrane 5XD Qty: 30 0RF Rx Instructions: Dissolve one tablet in the mouth 5 times a day for the next five days. cefuroxime axetil 500 mg tablet 500 mg PO BID Qty: 5 0RF Rx Instructions: Take one tablet this evening and then one tablet twice a day for the next two days. prednisone 20 mg tablet 40 mg PO DAILY Qty: 6 0RF Rx Instructions: Starting on Sunday, 02/03, take 2 tabs daily for the next 3 days. Continued mirtazapine 30 mg tablet 60 mg feeding tube BEDTIME Qty: 20 0RF Biktarvy 50-200-25 mg tablet 1 tab PO DAILY Qty: 14 0RF Rx Instructions: Ok to crush and give via feeding tube risperidone 3 mg tablet 3 mg feeding tube BEDTIME ferrous gluconate 324 mg (38 mg iron) tablet 324 mg feeding tube BID calcium carbonate-vitamin D3 600 mg-20 mcg (800 unit) tablet 1 tab feeding tube BID@1200,1800 omeprazole 10 mg Capsule,Delayed Release(Dr/Ec) 10 mg feeding tube DAILY@0630 PRN (Reason: Acid Reflux) albuterol sulfate [Ventolin HFA] 90 mcg/actuation HFA aerosol inhaler 2 puff inhalation Q6H PRN (Reason: wheezing) clonazepam 1 mg tablet 1 mg feeding tube DAILY Qty: 10 0RF tramadol 50 mg tablet 50 mg feeding tube BID PRN (Reason: Pain (Scale Score 7-10)) Qty: 20 0RF Serostim 6 mg recon soln 6 mg subcut DAILY glycopyrrolate 1 mg tablet 1 mg feeding tube BID clotrimazole 10 mg klaudia 10 mg PO TID pilocarpine HCl 5 mg tablet 5 mg PO TID gabapentin 600 mg tablet 600 mg PO TID ascorbic acid (vitamin C) 250 mg tablet 250 mg PO DAILY diphenhydramine HCl [Banophen] 25 mg capsule 25 - 50 mg PO DAILY PRN (Reason: Sleep) megestrol 625 mg/5 mL (125 mg/mL) suspension 5 ml feeding tube DAILY brimonidine-timolol [Combigan] 0.2-0.5 % drops 1 drp ophthalmic (eye) BID Eliquis 5 mg tablet 5 mg PO BID Rocklatan 0.02-0.005 % drops 1 drp ophthalmic (eye) BEDTIME Evenity 210mg/2.34mL ( 105mg/1.17mLx2) syringe 210 mg SUBCUT QMONTH acetaminophen 325 mg tablet 650 mg PO Q6H PRN (Reason: pain) tamsulosin [Flomax] 0.4 mg capsule 0.4 mg PO BEDTIME 30 Days Qty: 30 3RF Discharge Orders: Discharge Order (Routine); Ordered 02/02/25 Ordered By: Faith Da Silva Activity on Discharge: As tolerated Stand Alone Forms: Patient Portal Discharge page Print Language: Guinean Care Plan Goals: Complete resolution of SOB and difficulty breathing Resolution of oral candidiasis Health Concerns: Recurrence of asthma exacerbation and difficulty breathing Dysphagia and difficulty swallowing Plan of Treatment: Take cefuroxime 250 mg twice a day for the next 3 days, ending 02/05 Take prednisone taper of 40 mg daily for the next 3 days, ending on 02/05 Take clotrimazole dissolvable tablets 5 times a day for the next 6 days, ending on 02/08 Follow up outpatient in February for swallow evaluation and assessment for necessity of maintaining G-tube Assessment: See discharge summary Discharge Date/Time: 02/02/25 13:09
--- NOTE | 2025-02-02 10:08 | MHC.CLN ---
F/U PATIENT IS NPO AND REQUIRES TUBE FEEDING FOR NUTRITION/HYDRATION. TOLERATING JEVITY 1.0 AT MAX GOAL RATE 65 ML/HOUR CONTINUOUS, FREE WATER FLUSH 120 ML Q 6 HOURS. PROVIDES 1654 KCALS (26 KCALS/KG), 69 G PROTEIN (1.1 G/KG), 1783 ML TOTAL WATER FROM FORMULA AND FLUSHES (28.2 ML/KG). MONITOR TF TOLERANCE.
[2025-02-02] MEDS: Albuterol/Iprat 2.5/0.5MG 3 ML AMPUL.NEB INHALE (11:22)
[2025-02-02 11:23] VITALS: PULSE 88; RESP 16; O2SAT 91
[2025-02-02 11:32] VITALS: BP 110/78; PULSE 88; RESP 17; TEMP 36.8; O2SAT 91
[2025-02-02 12:00] LABS: Glucose, Whole Blood 142 mg/dL (60-115)
== END 2025-02-02 13:09 | disposition home or self-care (01) | DRG 202 ==
LOC: HO.ED 14:45 → HO.EDOVER 15:14 → HO.S3 23:42
PROVIDERS: Physician Assistant Medical; Student in an Organized Health Care Education/Training Program; Admitting Provider Hospitalist; Emergency Provider Emergency Medicine; PCP Student in an Organized Health Care Education/Training Program; Visit Provider Student in an Organized Health Care Education/Training Program
DX: J45.21 Mild intermittent asthma with (acute) exacerbation (principal); B37.0 Candidal stomatitis; J44.1 Chronic obstructive pulmonary disease with (acute) exacerbation; B37.81 Candidal esophagitis; I50.22 Chronic systolic (congestive) heart failure; R13.10 Dysphagia, unspecified; Z21 Asymptomatic human immunodeficiency virus [HIV] infection status; N40.0 Benign prostatic hyperplasia without lower urinary tract symptoms; Z99.81 Dependence on supplemental oxygen; Z93.1 Gastrostomy status; B18.2 Chronic viral hepatitis C; Z20.822 Contact with and (suspected) exposure to COVID-19; Z87.891 Personal history of nicotine dependence; Z79.899 Other long term (current) drug therapy
CPT/HCPCS: 0241U; 36415; 71046; 80053; 82803; 82947; 83690; 83735; 83880; 84484; 85025; 87040; 93005; 99285; J0456; J0696; J1450; J1885; J2270; J2405; J2470; J2919; J3475

== ENCOUNTER → 2025-01-27 11:15 | Outpatient (BNV) | payer OTHER, SELFPAY | PROVIDERS: Admitting Provider Hospitalist; Emergency Provider Emergency Medicine; PCP Student in an Organized Health Care Education/Training Program; Visit Provider Internal Medicine Cardiovascular Disease | DX: I45.10 Unspecified right bundle-branch block (principal) | CPT/HCPCS: 93010 ==

== ENCOUNTER → 2025-01-27 11:27 | Outpatient (BNV) | payer OTHER, SELFPAY | PROVIDERS: Emergency Provider Emergency Medicine; PCP Student in an Organized Health Care Education/Training Program; Visit Provider Radiology Diagnostic Radiology | DX: R07.89 Other chest pain (principal) | CPT/HCPCS: 71046 ==

== ENCOUNTER → 2025-01-27 14:48 | Outpatient (BNV) | payer OTHER, SELFPAY | PROVIDERS: Admitting Provider Hospitalist; Emergency Provider Emergency Medicine; PCP Student in an Organized Health Care Education/Training Program; Visit Provider Hospitalist | DX: J45.21 Mild intermittent asthma with (acute) exacerbation (principal) | CPT/HCPCS: 99223; 99232; 99239 ==

== ENCOUNTER 2025-02-09 09:47 | Outpatient (AMB) | payer OTHER, SELFPAY ==
--- NOTE | 2025-02-09 09:50 | A.OFFVIS_ITS ---
Vital Signs 02/09/25 09:51 Height 5 ft 6 in Weight 141 lb 1.533 oz BMI 22.8 BP 110/72 Blood Pressure Location Rt brachial Position Sitting Pulse 103 H Pulse Source Pulse Oximeter Pulse Oximetry (%) 95 Oxygen Delivery Method Room Air Intake Visit Reasons: Hos fu w/Hypoxia/Asthma(CT FU)/6MW Allergies Seasonal Allergies Allergy (Intermediate, Verified 02/09/25 09:55) Eye Drainage codeine [From Tylenol-Codeine #3] Allergy (Mild, Verified 02/09/25 09:55) Rash levofloxacin [From Levaquin] Allergy (Mild, Verified 02/09/25 09:55) Rash metoclopramide [From Reglan] Allergy (Mild, Verified 02/09/25 09:55) Rash acetaminophen [Tylenol-Codeine #3] Allergy (Unknown, Verified 02/09/25 09:55) Rash Penicillins [PENICILLINS] Allergy (Unknown, Verified 02/09/25 09:55) Rash ibuprofen [From Motrin] Adverse Reaction (Unknown, Verified 02/09/25 09:55) Reflux HPI HPI Hos fu w/Hypoxia/Asthma(CT FU)/6MW: Details: Benjamin is a pleasant 59 year old male, former minimal smoker, moderate persistent asthma, h/o chronic respiratory failure with hypoxia has home oxygen not currently using ([employer]), 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 He is accompanied by TRADE UNION SECRETARY. Since the last visit, he was evaluated at [facility] on 01/30/25 due to worsening cough and dyspnea. He was admitted for asthma exacerbation treated with Solu-Medrol IV, DuoNebs, ceftriaxone and azithromycin. CXR unremarkable. During his stay he developed sore throat after 3 days and was treated with IV fluconazole for oral candidias is. Pt then developed mild transaminitis and treatment was changed to magic mouthwash swish and swallow. LFTs were trended and were noted to decline. He completed azithromycin, and discharged on 01/30 with cefuroxime 250 mg b.i.d. x3 days, a short prednisone taper of 40 mg daily x3 days, and clotrimazole 10 mg dissolvable troches 5 times a day x6 days. Of note, during stay patient with dysphagia, kept NPO and fed through tube feeding with Jevity, now back to solid foods. It is unclear if dysphagia is contributing to aspiration and patient has upcoming appt with GI to further discuss and likely undergo MBSS. Patient's TRADE UNION SECRETARY reports has not been on a tube feed diet at home for the past 8 months. During his stay he reportedly lost 15 lbs due to only tube feeds and has had significant decrease in overall energy. Previously received tube feeds due to severe protein calorie malnutrition. Since discharge he reports improvements in dyspnea and cough however has started to develop dysphagia. Will be evaluated by GI this week to further assess. Per TRADE UNION SECRETARY PCP was suggesting switching to nebulized budesonide and albuterol in place of ICS due to risk of thrush. [facility] Medical History Lower urinary tract symptoms Hypogonadism in male Low serum cortisol level Adrenal hyperplasia Osteoporosis Height loss HIV (human immunodeficiency virus infection) Asthma Dysphagia Adult failure to thrive Adult failure to thrive Multiple rib fractures History of empyema of pleura (01/05/23) Hypertension Closed fracture of leg Hepatitis C Kidney stones Pleuritic chest pain Pneumonia Substance abuse Hemorrhoids Depression HIV (human immunodeficiency virus infection) Asthma Surgical History H/O hemorrhoidectomy Family History Maternal Grandmother Lung cancer Maternal Aunt Lung cancer Mother Lung cancer Social History Household Members: Caregiver Household Members Other:: TRADE UNION SECRETARY Housing: Apartment Do you presently have visiting nurse or other home services: Yes Alcohol intake: never Patient Tobacco Use Status: Former Tobacco user Tobacco use type: Cigarette e-Cigarette/Vaping Use: Never Used Second Hand Smoke Exposure: No Substance Use Type: Crack/Cocaine Advance Directives Date on File: 04/25/21 service: No Current occupational status: disabled Gender identity: Male Review of Systems Const Denies chills, Denies excessive sweating, Reports fatigue, Denies fever(s), Denies headache(s), Denies night sweats and Reports weakness Eyes Denies dry eyes, Denies irritation and Denies itchy eyes ENT Reports Normal hearing present, Reports dysphagia, Denies headache(s), Denies nasal congestion, Denies nasal discharge and Denies post nasal drip Card Denies chest pain, Denies chest pain at rest, Denies chest pain with activity, Denies claudication, Denies leg edema, Denies orthopnea and Denies paroxysmal nocturnal dyspnea Resp Denies chest congestion, Denies cough, Denies excessive phlegm production, Denies pain on inspiration, Denies pain with cough, Denies stridor and Denies wheezing GI Reports dysphagia Neuro Reports Normal hearing present, Denies headache(s) and Reports weakness Endo Denies excessive sweating and Reports fatigue Aller/Immun Denies itchy eyes, Denies seasonal rhinorrhea and Denies wheezing Physical Exam Vital Signs: Last Vital Signs Pulse 103 H 02/09/25 09:51 BP 110/72 02/09/25 09:51 Pulse Ox 95 02/09/25 09:51 Oxygen Delivery Method Room Air 02/09/25 09:51 BMI result Body Mass Index 22.8 Const General: cooperative, comfortable, no acute distress and alert Nutritional Appearance: cachectic Orientation/consciousness: patient oriented x3 HEENT Head: Yes normal to inspection, Yes normocephalic and Yes atraumatic Ears: hearing grossly normal bilaterally and external ears normal Eyes General: appearance normal, both eyes and all related structures Eyelids: Yes eyelids normal Sclerae: sclerae normal EOM: EOMs intact bilaterally Neck Neck: Yes normal visual inspection and Yes no lymphadenopathy Lymphatic: no lymphadenopathy noted Chest Chest palpation & inspection: normal inspection of the chest Resp Effort & Inspection: normal respiratory effort, able to speak in complete sentences, no audible wheezes, no cough, no stridor, not tachypneic, no tripod positioning and no use of accessory muscles Auscultation: clear to auscultation bilaterally Cardio Jugular venous distension: no JVD Rate: regular rate Rhythm: regular rhythm Skin Other: warm, dry General skin exam: no rashes or lesions noted Neuro General: patient oriented x3 Cranial nerves: Yes Normal hearing present Cognition (Neuro): normal cognition Gait exam (Neuro): Normal gait present Extrem General: Yes normal to inspection, Yes capillary refill normal, Yes no clubbing, cyanosis or edema and Yes no pedal edema Psych Appearance: grossly normal and well kempt Speech and movement: Normal speech and movement present and Clear speech present Affect: normal affect Attitude: cooperative Thought process: Normal thought process present Thought content: Normal thought content present Insight: Good insight present (Psych) Judgement: Good judgement present (Psych) Assessment & Plan Assessment & Plan (1) Asthma: Code(s): J45.909 - Unspecified asthma, uncomplicated Category: Medical (2) Dysphagia: Code(s): R13.10 - Dysphagia, unspecified Category: Medical Qualifiers: Dysphagia type: unspecified Qualified Code(s): R13.10 - Dysphagia, unspecified (3) HIV (human immunodeficiency virus infection): Code(s): Z21 - Asymptomatic human immunodeficiency virus [HIV] infection status Category: Medical Qualifiers: HIV symptom status: unspecified Qualified Code(s): Z21 - Asymptomatic human immunodeficiency virus [HIV] infection status (4) History of pulmonary embolism: Code(s): Z86.711 - Personal history of pulmonary embolism Category: Medical Plan Since discharge for asthma exacerbation patient reports improvements in cough and dyspnea, LSC, VSS. Will send budesonide BID in addition to albuterol solution PRN. He has current rx for albuterol and neb at home. He has upcoming appointment with GI February 12 to evaluate need for G tube and continuation of tube feeds as he may have some aspiration component. Today patient appears pale, with significant fatigue with recent 15lb weight loss secondary to diet changes, encouraged patient to return to ED if symptoms worsen. Will hold off on 6mwt today due to fatigue/weakness and patient will call to schedule in 1-2 weeks. He does have supplemental oxygen at home from prior admission however has not used. ROSITA Vazquez. Will send for overnight oximetry to assess need for supplemental oxygen on room air due to prior nocturnal hypoxemia. Encouraged patient to obtain pulse oximeter to assess oxygen saturation and maintain >92%. All questions were answered and patient is in agreement of plan. Will follow up in 6-8 weeks or sooner if needed. Orders: Orders Overnight Pulse Oximetry Today G47.34 - Idiopathic sleep related nonobstructive alveolar hypoventilation Medications: New budesonide 0.25 mg (2 mL) inhalation BID 60 mL 3RF Coding Level of Care Code Est Pt Level 4 (57906) Complex EM visit Add On G2211 Diagnoses Asthma J45.909 Dysphagia R13.10 Dysphagia type: unspecified HIV infection, unspecified symptom status Z21 HIV symptom status: unspecified History of pulmonary embolism Z86.711
[2025-02-09 09:51] VITALS: BP 110/72; PULSE 103; O2SAT 95; BMI 22.8
--- OUTSIDE RECORDS SUMMARY | 2025-02-09 10:32 | XMS_ITS | Data Portability ---
Author Organization [facility], Main Office Address [address] [place] [address] Assessment No assessment recorded. Plan of Treatment Reminders Order Date Submit Date Provider Last Modified By Organization Details Last Modified Time Details Appointments RESEARCH FOLLOW UP 2024 10:00A [address] MD Not available Not available Not available Lab None recorded . Referral None recorded . Procedures None recorded . Surgeries None recorded . Imaging electroc ardiogra m 2023 024 cheryl Main Office, [address] [place] [address], [address], 07/15/2024 15:47:38 Medication Orders clotrima zole 10 mg klaudia 2024 025 [facility][id number], [address] [place], [address], 12/30/2024 16:32:25 Biktarvy 50 mg-200 mg-25 mg tablet 2024 025 [facility], [address] [place], [address], 12/30/2024 16:32:25 clotrima zole 10 mg klaudia 2024 025 [facility], [address] [place], [address], 11/25/2024 13:20:54 Benadryl 25 mg capsule 2024 025 [facility], [address] [place], [address], 11/25/2024 13:20:55 Biktarvy 50 mg-200 mg-25 mg tablet 2024 025 [facility] [address] [place], [address], 11/25/2024 13:20:54 clotrima zole 10 mg klaudia 2024 025 [facility] [address] [place], [address], 10/21/2024 14:29:45 Biktarvy 50 mg-200 mg-25 mg tablet 2024 025 [id number] [address] [place], [address], 10/21/2024 14:30:45 Patient TargetsNo targets recorded. Patient Instructions Encounter Date Encounter Id Patient Instructions Last Modified By Organization Details Last Modified Time 10/21/2024 [id number] Clotrimazole Oral Lozenge (CLOTRIMAZOLE LOZENGE - MUCOUS MEMBRANE (ORAL)) [email or web address] Not available 10/21/2024 14:29:44 Reason for Referral None Reported. Results Created Date Observation Date Name Description Value Unit Range Abnormal Flag Note LastModifiedBy Organization Detail LastModifiedTime 06/18/20 24 06/04/2024 US, abdom en, compl ete No observ ation record ed. [email or web address] [place], [address], 06/18/2024 11:12:25 07/15/20 24 07/15/2024 elect rocar diogr am No observ ation record ed. [email or web address] Main Office [address] [place], [address], 07/15/2024 17:12:05 07/17/20 24 elect rocar diogr am No observ ation record ed. [email or web address] Main Office [address] [place], [address], 07/17/2024 14:15:04 Result Notes None recorded. Problems Name Problem SNOMED Code Status Onset Date Resolution Date Notes Provider Name and Address Organization Details Recorded Time Asthma [id number] Active 2006 Asthma; snomeddesc ription: Asthma; Report Immunity to Registry: Yes; Asthma; Report Immunity to Registry: Yes; ReasonDate : 10/13/2019 ; ; Start Date : 10/13/2019 Asthma; snomeddesc ription: Asthma; Report Immunity to Registry: Yes; Not Available [facility] 4 06:58:53 Male hypogonad ism 83537215 Active 2012 Male hypogonadi sm; snomeddesc ription: Male hypogonadi sm; Report Immunity to Registry: Yes; Not Available [facility] 4 06:58:53 Diarrhea 58632341 Active 2006 Diarrhea; snomeddesc ription: Diarrhea; Report Immunity to Registry: Yes; Diarrhea, unspecifie d; snomeddesc ription: Diarrhea; Report Immunity to Registry: Yes; Not Available [facility] 4 06:58:53 Substance abuse 47275575 Active 2006 Substance abuse; snomeddesc ription: Substance abuse; Report Immunity to Registry: Yes; Notes: opiate/suad jolene/benzo ; Not Available [facility] 4 06:58:53 Human immunodef iciency virus infection 15923261 Active 1991 Human immunodefi ciency virus [HIV] disease; snomeddesc ription: Human immunodefi ciency virus infection; Report Immunity to Registry: Yes; Human immunodefi ciency virus infection; snomeddesc ription: Human immunodefi ciency virus infection; Report Immunity to Registry: Yes; Not Available [facility] 4 06:58:53 Steatotic liver disease 062578344 Active 2006 Steatosis of liver; snomeddesc ription: Steatosis of liver; Report Immunity to Registry: Yes; Notes: u/s 2021; Fatty (change of) liver, not elsewhere classified ; snomeddesc ription: Steatosis of liver; Report Immunity to Registry: Yes; Notes: u/s 2021; Not Available [facility] 4 06:58:53 Herpesvir us infection 12269414 Active 2009 Herpesvira l infection, unspecifie d; snomeddesc ription: Herpes simplex; Report Immunity to Registry: Yes; Notes: HSV 1 pos serology; HSV 2 neg serology; Not Available [facility] 4 06:58:53 Fibromyos itis 37758583 Active 2006 Myalgia and myositis, unspecifie d; snomeddesc ription: Fibromyalg ia; Report Immunity to Registry: Yes; Notes: Chronic pain multiple/c hronic back pain; Not Available [facility] 4 06:58:53 Herpes simplex 55497388 Active 2009 Herpes simplex; snomeddesc ription: Herpes simplex; Report Immunity to Registry: Yes; Notes: HSV 1 pos serology; HSV 2 neg serology; Not Available [facility] 4 06:58:54 Kidney stone 18096069 Active 2001 Calculus of kidney; snomeddesc ription: Kidney stone; Report Immunity to Registry: Yes; Kidney stone; snomeddesc ription: Kidney stone; Report Immunity to Registry: Yes; Not Available [facility] 4 06:58:54 History of calculus of kidney 641004189 Active 2001 History of calculus of kidney; snomeddesc ription: History of calculus of kidney; Report Immunity to Registry: Yes; Not Available [facility] 4 06:58:54 Type B viral hepatitis 00220154 Active 2006 Type B viral hepatitis; snomeddesc ription: Type B viral hepatitis; Report Immunity to Registry: Yes; Notes: core ab pos; s ag neg; s ab neg HBV vL nondetecte d 2016; 2017; Not Available [facility] 4 06:58:54 Hyperplas ia of prostate 200337914 Active 2014 Hyperplasi a of prostate, unspecifie d, without urinary obstructio n and other lower urinary symptoms (LUTS); snomeddesc ription: Hyperplasi a of prostate; Report Immunity to Registry: Yes; Hyperplas ia of prostate; snomeddesc ription: Hyperplasi a of prostate; Report Immunity to Registry: Yes; Not Available [facility] 4 06:58:54 Anxiety 69889956 Active 1996 Anxiety; snomeddesc ription: Anxiety; Report Immunity to Registry: Yes; Not Available [facility] 4 06:58:54 Testicula r hypofunct ion 596675323 Active 2012 Other testicular hypofuncti on; snomeddesc ription: Male hypogonadi sm; Report Immunity to Registry: Yes; Not Available [facility] 4 06:58:54 Seasonal allergic rhinitis 813718079 Active 2012 Other seasonal allergic rhinitis; snomeddesc ription: Seasonal allergy; Report Immunity to Registry: Yes; Notes: hx nasal congestion ; Not Available [facility] 4 06:58:54 Onychomyc osis due to dermatoph yte 124073177 Active 2017 Tinea unguium; snomeddesc ription: Onychomyco sis; Report Immunity to Registry: Yes; Notes: feet digits; Not Available [facility] 4 06:58:55 Sleep apnea 93969531 Active 1999 Sleep apnea; snomeddesc ription: Sleep apnea; Report Immunity to Registry: Yes; Unspecifi ed sleep apnea; snomeddesc ription: Sleep apnea; Report Immunity to Registry: Yes; Not Available [facility] 4 06:58:55 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 35190075 Active 2006 Other psychoacti ve substance abuse, uncomplica lucho; snomeddesc ription: Substance abuse; Report Immunity to Registry: Yes; Notes: opiate/suad jolene/benzo ; Not Available [facility] 4 06:58:55 Viral hepatitis B without hepatic coma 070305767 Active 2006 Unspecifie d viral hepatitis B without hepatic coma; snomeddesc ription: Type B viral hepatitis; Report Immunity to Registry: Yes; Notes: core ab pos; s ag neg; s ab neg HBV vL nondetecte d 2016; 2017; Not Available [facility] 4 06:58:55 Blood chemistry outside reference range 529867583 Active 2012 Other specified abnormal findings of blood chemistry; snomeddesc ription: Decreased testostero ne level; Report Immunity to Registry: Yes; Notes: hypogoandi sm; Not Available [facility] 4 06:58:55 Arthritis 1144768 Active 1998 Arthritis; snomeddesc ription: Arthritis; Report Immunity to Registry: Yes; Notes: Osteoatrth ris multiple; Not Available [facility] 4 06:58:55 History of urinary stone 070145887 Active 2001 Personal history of urinary calculi; snomeddesc ription: History of calculus of kidney; Report Immunity to Registry: Yes; Not Available [facility] 4 06:58:56 Fibromyal mika 772982311 Active 2006 Fibromyalg ia; snomeddesc ription: Fibromyalg ia; Report Immunity to Registry: Yes; Notes: Chronic pain multiple/c hronic back pain; Not Available [facility] 4 06:58:56 Lyme disease 27011789 Active 2017 Lyme disease; Report Immunity to Registry: Yes; Notes: tx cefuroxime x14 d (hx all Doxy); Not Available [facility] 4 06:58:56 Headache 93511209 Active 2008 Headache; snomeddesc ription: Headache; Report Immunity to Registry: Yes; Notes: migraine; Headache; snomeddesc ription: Headache; Report Immunity to Registry: Yes; Notes: migraine; Not Available [facility] 4 06:58:56 Hypertens marj disorder 28839287 Active 2017 Hypertensi ve disorder; snomeddesc ription: Hypertensi ve disorder; Report Immunity to Registry: Yes; Not Available [facility] 4 06:58:56 Arthropat hy 831644474 Active 1998 Arthropath y, unspecifie d, site unspecifie d; snomeddesc ription: Arthritis; Report Immunity to Registry: Yes; Notes: Osteoatrth ris multiple; Not Available [facility] 4 06:58:56 Essential hypertens ion 51129236 Active 2017 Essential (primary) hypertensi on; snomeddesc ription: Hypertensi ve disorder; Report Immunity to Registry: Yes; Not Available [facility] 4 06:58:57 Testoster one level below reference range 489050335 Active 2012 Decreased testostero ne level; snomeddesc ription: Decreased testostero ne level; Report Immunity to Registry: Yes; Notes: hypogoandi sm; Not Available [facility] 4 06:58:57 Insomnia 473518306 Active 1996 Insomnia; Report Immunity to Registry: Yes; Not Available [facility] 4 06:58:57 Anxiety state 327477990 Active 1996 Anxiety state, unspecifie d; snomeddesc ription: Anxiety; Report Immunity to Registry: Yes; Not Available [facility] 4 06:58:57 Onychomyc osis 150911406 Active 2017 Onychomyco sis; snomeddesc ription: Onychomyco sis; Report Immunity to Registry: Yes; Notes: feet digits; Not Available [facility] 4 06:58:57 Chronic hepatitis C 611330987 Active 2006 Chronic hepatitis C without mention [...] 12/2021 F2 ; Not Available [facility] 4 06:58:57 Depressiv e disorder 17542925 Active 1996 Depressive disorder, not elsewhere classified ; snomeddesc ription: Depressive disorder; Report Immunity to Registry: Yes; Depressiv e disorder; snomeddesc ription: Depressive disorder; Report Immunity to Registry: Yes; Not Available [facility] 4 06:58:58 Seasonal allergy 606253291 Active 2012 Seasonal allergy; snomeddesc ription: Seasonal allergy; Report Immunity to Registry: Yes; Notes: hx nasal congestion ; Not Available [facility] 4 06:58:58 Loss of appetite 10682119 Active 2012 Anorexia; snomeddesc ription: Loss of appetite; Report Immunity to Registry: Yes; Loss of appetite; snomeddesc ription: Loss of appetite; Report Immunity to Registry: Yes; Not Available [facility] 4 06:58:58 Seizure 51978927 Active 2000 Seizure; snomeddesc ription: Seizure; Report [...] to Registry: Yes; Not Available [facility] 4 06:58:58 Problem Notes None recorded. Medical Equipment None Reported. Allergies Allergen ID Allergen Name Allergen Category Reaction Reaction Severity Criticality Documentation Date Start Date Code Code System Note Provider Name and Address Organization Details Recorded Time 714 Reglan medicatio n Not available Not available Not available 10/31/20232012 9230 RxNorm Comme nt: adver se_ev ent_t ype: 15042 8002; ; Not Available [facility] 4 06:50:47 715 Motrin medicatio n Not available Not available Not available 10/31/2023201248 8 RxNorm Comme nt: adver se_ev ent_t ype: 36907 8002; ; Not Available [facility] 4 06:50:47 716 doxycycli ne Not available Not available Not available Not available 10/31/20232017 3640 RxNorm Comme nt: adver se_ev ent_t ype: 45172 8002; ; Not Available [facility] 4 06:50:47 Medications Name Sig Start [...] l; Not Available Not Available Not Available quetiapin [...] capsule TOME BAHMAN O DOS CAPS POR VIA ORAL A DIARIO CUANDO SEA NECESARI O PARA LA PICAZON INSOMNIA 2024 active Not Available Not Available Not Avai lable mirtazapi ne 45 mg tablet TAB 45MG; [...] Available Liquid Nutrition oral 0 Quantity : 14799; Duration : 30; 0 refill(s ) 09/30 [...] Nexium Quantity : ; 0 refill(s ) 04/23/ 2013 active VACCINE_ IND: no; Not Available Not [...] Not Available Not Available Not Available Afluria 7148-6762 45 mcg (15 mcg x 3)/0.5 mL [...] SU_FULL_ NAME: Cheryl Taylorsusan scales; VIS_DATE : 19:25:45 .0; Not Available [...] SU_FULL_ NAME: Cheryl Taylorsusan scales; VIS_DATE : 14:37:48 .0; Not Available Not Available Not Available Prevnar 20 (PF) 0.5 mL intramusc ular syringe - Quantity : ; 0 refill(s ) 2022 active VACCINE_ IND: yes; VACCINE_ NAME: Pneumoco ccal conjugat e PCV20, polysacc haride [id number] conjugat e, adjuvant , PF; Not Available Not Available Not Available Vitals Date Recorded Heart rate Body temperature Body weight Systolic blood pressure Diastolic blood pressure Provider Name and Address Organization Details Last Updated DateTime 10/21/2024 98 /min 98.2 [degF] 31031.2 6 g 118 mm[Hg] 97 mm[Hg] Lexis PENDLETON 12:04:23 Date Recorded Body height Heart rate Respiratory rate Body mass index (BMI) Body weight Systolic blood pressure Diastolic blood pressure Provider Name and Address Organization Details Last Updated DateTime 162.56 cm 81 /min 20 /min 24.9 kg/m2 09678.8 9 g 136 mm[Hg] 89 mm[Hg] Cheryl Street MD [address] [place] [address] marcie, [place], [address], [facility] 5 15:01:34 Date Recorded Heart rate Body mass index (BMI) Body weight Respiratory rate Systolic blood pressure Diastolic blood pressure Provider Name and Address Organization Details Last Updated DateTime 5 92 /min 26.1 kg/m2 36955.0 4 g 16 /min 108 mm[Hg] 83 mm[Hg] Cheryl Street MD [address] [place], [address], [facility] 5 16:33:39 Date Recorded Body height Provider Name an d Address Organization Details Last Updated DateTime 12/30/2024 162.[address] [facility] 12/30/2024 15:08:38 Date Recorded Body height Heart rate Respiratory rate Body temperature Body mass index (BMI) Body weight Systolic blood pressure Diastolic blood pressure Provider Name and Address Organization Details Last Updated DateTime 4 162.56 cm 89 /min 16 /min 98 [degF] 20.6 kg/m2 02333.0 8 g 123 mm[Hg] 90 mm[Hg] [facility] 4 14:28:38 Date Recorded Body temperature Body mass index (BMI) Body weight Respiratory rate Heart rate Systolic blood pressure Diastolic blood pressure Provider Name and Address Organization Details Last Updated DateTime 4 98.7 [degF] 20.6 kg/m2 85910.0 8 g 20 /min 87 /min 120 mm[Hg] 80 mm[Hg] Cheryl Street MD [address] [place], [address], [facility] 4 15:46:02 Date Recorded Body height Provider Name an d Address Organization Details Last Updated DateTime 07/15/[address] [facility] 07/15/2024 15:22:29 Social History None recorded. Functional Status None recorded. Mental Status None recorded. Family History Relationship Description Onset Age of this Age Resolved Age Notes LastModified by Organization Details LastModified Time Father No current problems or disability [email or web address] Not available 01/28 11:52:00 Mother No current problems or disability [email or web address] Not available 01/28 11:52:00 Notes:High cholesterol, Resp onse Property: Yes; , Cancer, other unspecified, Response Property: Yes; , Diabetes, Response Property: Yes; Medical History No medical history recorded. Immunizations Vaccine Type Date Status Note Provider Nam e and Address Organization Details Recorded Time Meningococcal MCV4O 9 completed Not Available [facility] 10/31/2023 06:54:49 zoster live 9 completed Not Available [facility] 10/31/2023 06:54:50 Influenza, split virus, quadrivalent, preservative 9 completed Not Available [facility] 10/31/2023 06:54:50 Influenza, split virus, quadrivalent, preservative 8 completed Not Available [facility] 10/31/2023 06:54:50 Influenza, split virus, quadrivalent, preservative 0 completed Not Available [facility] 10/31/2023 06:54:50 Past Encounters Encounter ID Performer Location Encounter Start Date Encounter Closed Date Diagnosis/Indication Diagnosis SNOMED-CT Code Diagnosis ICD10 Code Diagnosis Note [address] MD Main Office [address] [place] [address] 05/25/2023 09:48:40 06/27/2023 09:16:16 Human immunodeficiency virus infection 86340545 B20 HIV. Continue Biktarvy 1 tab po [...] /Tivicay.. safe sex. plan of care reviewed [address] MD Main Office [address] [place] [address] 08/24/2023 09:33:00 08/24/2023 10:46:09 Human immunodeficiency virus infection 57465092 B20 HIV. Continue Biktarvy 1 tab po [...] /Tivicay.s afe sex.labs Septemberlan of care reviewed [address] MD Main Office [address] [place] [address] 11/12/2023 11:34:42 11/16/2023 15:00:47 Human immunodeficiency virus infection 40994582 B20 HIV.Contin ue Biktarvy 1 tab po qd.U=Upt aware of PreP availabili ty.condom use.plan of care reviewed Adult [facility] th examination 528966710 Z00.[address] MD Main Office [address] [place] [address] 11/21/2023 10:59:43 11/23/2023 14:55:[address] MD Main Office [address] [place] [address] 01/14/2024 09:27:39 01/16/2024 13:51:[address] MD Main Office [address] [place] [address] 01/16/2024 10:24:39 01/16/2024 11:50:10 Human immunodeficiency virus infection 21719210 B20 HIV.Contin ue Biktarvy 1 tab po qd.U=Upt aware of PreP availabili ty.condom use.labs todayplan of care reviewed Candidiasis of mouth 797 19554 B37.0 nystatin 5cc po qid x 14 days. swish and spit.call with any side effects.ba cterial/fu ngal swab obtained. 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 [address] MD Main Office [address] [place] [address] 02/14/2024 12:00:04 02/14/2024 12:24:19 Human immunodeficiency virus infection 22116360 B20 HIV.Contin ue Biktarvy 1 tab po qd.U=Upt aware of PreP availabili ty.DoxyPEP reviewedco ndom use.labs todayplan of care reviewed Methicilli n resistant Staphylococcus aureus infection 966666957 A49.02 swab culture 01/2024 Candidiasi s of the esophagus 46793325 B37.81 sandy glabratafl uconazole 100mg po qd x 14 dayscall with any side effects. Weight loss 46382707 R63 .4 contributi ng factor sandy, MRSA, HIV among othermight benefit from Serostim.w ill review with himG tube [address] MD Main Office [address] [place] [address] 02/21/2024 11:08:05 02/21/2024 12:09:56 Human immunodeficiency virus infection 11388460 B20 HIV.Contin ue Biktarvy 1 tab po qd.complia nce reviewedU= Upt aware of PreP availabili ty.DoxyPEP reviewedco ndom use.labs todayplan of care reviewed Candidiasi s of the esophagus 17928672 B37.81 sandy glabratato complete fluconazol e 100mg po bid x 14 days: (10mg/ml) 10ml by G tube bidcall with any side effects. Methicilli n resistant Staphylococcus aureus infection 950040996 A49.02 swab culture urr ently on Bactrim oral suspension (200mg- 40mg/5ml) since 02/15-20ml q 12 hrs G tube x 10 days Cachexia a ssociated with AIDS 244610807 B20 R64 weight loss. frail. progressin g.contribu ting factor sandy, MRSA, HIV among other. G tubeSerost im 6mg sq qd will be prescribed with the goal of helping w weight gain, increase muscle mass gain, and increase enduranceh e has visiting nurse who could assist with daily injections . [address] MD Main Office [address] [place] [address] 02/25/2024 10:24:53 02/25/2024 11:09:27 Human immunodeficiency virus infection 98164305 B20 HIV.Contin ue Biktarvy 1 tab po qd.complia nce reviewedU= Ucondom use.labs todayplan of care reviewed Candidiasi s of the esophagus B37.81 sandy glabratawi ll continue fluconazol e 200 mg po qd x 14 days: (10mg/ml) 10ml by G tube QD;will on next appointmen t for further tx va suppressio n tx.call with any side effects. Cachexia a ssociated with AIDS 310564570 B20 R64 weight loss. frail. progressin g.approved Serostim 6mg sq qd; awaiting delivery to the office. will be prescribed with the goal of helping w weight gain, increase muscle mass gain, and increase enduranceh e has visiting nurse who could assist with daily injections .ensure tidmegace 625 mg qd. Methicilli n resistant Staphylococcus aureus infection 278546901 A49.02 swab culture 01/2024will complete 10 days of Bactrim oral suspension (200mg- 40mg/5ml) since 02/15-20ml q 12 hrs G tube on 02/27/[address] MD Main Office [address] [place] [address] 03/14/2024 10:24:00 03/14/2024 10:29:25 Cachexia associated with AIDS 651115776 R64 B20 gained 2 pounds. probably improved sandy esophagiti s 2nd to inhaled steroids.S Tart Serostim 6mg s/c qd abdomen. first dose administer ed today. Tolerated well; goalis to increase weight, endurance and muscle massHe will have EQUIPMENT OILER and nurse help with daily injections .potential side effects reviewed.t o call with any concernshe will picking machine operator Megace today, and start it as well(G tube) qd to increase apetitte Human immunodeficiency virus infection 37073432 B20 HIV.Contin ue Biktarvy 1 tab po qd.complia nce reviewed Candidiasi s of the esophagus B37.81 sandy glabratawi ll continue 2 more weeks of fluconazol e 200 mg po qd x 14 days: (10mg/ml) 10ml by G tube QD;might benefit from qw suppressio n tx.call with any side effects. [address] MD Main Office [address] [place] [address] 04/18/2024 09:52:00 04/18/2024 11:19:01 Cachexia associated with AIDS 233868499 R64 B20 124 lbs. gained weightcont inue Serostim 6mg s/c qd abdomen. goalis to increase weight, endurance and muscle masscontin ue Megace G tube qdCNA and nurse helping with compliance and tx.potenti al side effects reviewed.t o call with any concerns Human immunodeficiency virus infection 72231229 B20 HIV.Contin ue Biktarvy 1 tab po qd.compljordon copelande reviewedla bs today Candidiasi s of the esophagus 95743454 B37.81 sandy glabratawi ll continue fluconazol e 200 (10ml) mg G tube qw for suppressio n tx.call with any side effects. Aspiration pneumonia 422 957189 J69.0 get discharge summaryon antibiotic ;eat standing or sitting; and not [place] [address] MD Main Office [address] [place] [address] 05/20/2024 10:17:53 05/20/2024 12:44:49 Cachexia associated with AIDS 399289872 R64 B20 continue Serostim 6mg s/c qd abdomen. goal is to increase weight, endurance and muscle masscontin ue Megace G tube qd 5cc qdCNA and nurse helping with compliance and tx.potenti al side effects reviewed.t o call with any concerns Human immunodeficiency virus infection 17043386 B20 HIV.Contin ue Biktarvy 1 tab po qd.complia nce reviewedla bs today Candidiasi s of the esophagus 26645580 B37.81 sandy glabrataho ld fluconazol e for nowSTART 1 tab po bid x 21 says for esophageal sandy glabrata.c all with any side effects. [address] MD Main Office [address] [place] [address] 06/18/2024 10:10:09 06/18/2024 11:12:33 Cachexia associated with AIDS 175594518 R64 B20 continue Serostim 6mg s/c qd abdomen. goal is to increase weight, endurance and muscle massCNA and nurse helping with compliance and tx.megace on holdpotent ial side effects reviewed.t o call with any concerns Human immunodeficiency virus infection 17080601 B20 HIV.Contin ue Biktarvy 1 tab po qd.padmini hoffman reviewedla bs today Inflammato ry disease of liver 086682992 K75.9 Suspect 2nd to concomitan t medication s. ongoingdo not re-start fluconazol e nor megacenega tive infectious and non-infect ious workupto call or ER if jaundice, abd pain, n/v/d marce huertas History of calculus of kidney 945056859 Z87.442 u/s 05/[address] scan 02/2024hydr ation Aspiration pneumonia 422 371183 J69.0 s/p aspiration on CT AngioNPO per instructio n given to him in hospital; nutrition by G tubes/p (ceftriaxo ne,Azithro ,Flagyl while in Hospital;d ischarged on azithro and cefpodoxim e x 3 days which he completed. leg elevationa void sedating meds as much as possible Deep venou s thrombosis of lower extremity [id number] I82.409 left lower extremity doppler showed DVT of gastrocnem ius vein;on tx w w Eliquis bid . Pulmonary embolism [address] Angio was positive for Acute lobar PEs/p heparin; ongoing Eliquis bidmed list reviewed.n o drug use for years. not on maintenanc e tx.denies current ETOH use. [address] MD Main Office [address] [place] [address] 07/15/2024 15:10:10 07/15/2024 15:45:30 Cachexia associated with AIDS [id number] R64 B20 continue Serostim 6mg s/c qd abdomen. goal is to increase weight, endurance and muscle masspotent ial side effects reviewed.t o call with any concerns Human immunodeficiency virus infection 95308756 B20 HIV.Contin ue Biktarvy 1 tab po qd.padmini hoffman reviewedla bs Candidiasi s of the esophagus 7.81 on clotrimazo le. swish and spit qd Medication monitoring 39 0059551 Z51.[address] MD Main Office [address] [place] [address] 10/21/2024 12:22:54 10/21/2024 16:48:51 Cachexia associated with AIDS [id number] R64 B20 improvedco ntinue Serostim 6mg s/c qd abdomen. goal is to increase weight, endurance and muscle masspotent ial side effects reviewed.m ay start decreasing dose in 1-2 months if further weight gainon Boost protein shakesto call with any concerns Human immunodeficiency virus infection 19526507 B20 HIV.Contin ue Biktarvy 1 tab po qd.padmini hoffman reviewedla bs Candidiasi s of the esophagus 81 on clotrimazo le. swish and spit qd/BID PRN [address] MD Main Office [address] [place] [address] 11/25/2024 11:48:55 11/25/2024 14:20:54 Cachexia associated with AIDS [id number] R64 B20 improvedco ntinue Serostim 6mg s/c [...] with any concerns Human immunodeficiency virus infection 82597782 B20 HIV.Contin ue Biktarvy 1 tab po qd.padmini hoffman reviewedla bs Candidiasi s of the esophagus 7.81 off/on; recurrento n clotrimazo le. swish and spit qd/BID PRN for suppressio n Insomnia [id number] G47.0 0 benadryl capsules requested by patient forinsomni a and itchiness as needed.cor rect use reviewed. [address] MD Main Office [address] [place] [address] 12/30/2024 15:04:38 12/31/2024 09:52:40 Cachexia associated with AIDS [id number] R64 B20 improvedco ntinue Serostim 6mg s/c [...] with any concerns Human immunodeficiency virus infection 41851962 B20 HIV.Contin ue Biktarvy 1 tab po qd.complia nce reviewedla bs Candidiasi s of the esophagus 22858103 B37.81 off/on; recurrento n clotrimazo le. swish and spit /BID/TID PRN for suppressio n Health Concerns Section Related Observation LastModified by Organization Detai ls LastModified Time None Recorded Concern Status LastModified by Organization Details LastModified Time None Recorded Advance Directives Directive None Recorded Payers Encounter Date Sequence Insurance Name Policy Number Policy Perry Covered Member ID Perry Member ID Guarantor Name 06/18/2024 1 [employer] - DOS ON OR AFTER 2022 - MEDICARE ADVANTAGE [place] (MED[place] REPLACEMENT/AD VANTAGE - PPO) [facility] Fall [id number] [facility] 07/15/2024 1 [employer] - DOS ON OR AFTER 2022 - [place]IC[place]ANTAGE - PPO) [facility] Fall [id number] [facility] 10/21/2024 1 [employer] - DOS ON OR AFTER 2022 - [place]ANT[place] - PPO) [facility] Fall [id number] [facility] 11/25/2024 1 [employer] - DOS ON OR AFTER 2022 - [place] VANTAGE - PPO) [facility] Fall [id number] [facility] 12/30/2024 1 [employer] - DOS ON OR AFTER 2022 - [place] VANTAGE - PPO) Benjamin Fall [id number] Benjamin Juan David Notes Date Note Type Note Provider Name and Address Organization Details Recorded Time 06/18/2024 text/html HIVOn Biktarvy 1 tab po qd.reports daily compliance. denies missing dose.resolved thrush. hx recurrence. fluconazole and voriconazole on hold. Pt reports was hospitalized at [facility] 06/10/24-06/13/24 ( got to ER on [...] VL nondetetcted01/2024 HIV VL nondetcetd;eGFR=76;AST /ALT wnl;11/2023 SJ2=443; HIV VLnondetceted; no infections.01/2022 WP2=712; HIV VL nondetceted; eGFR>60; ALt/AST wnl; syphilis neg; GC/chlamydia neg Cheryl Street MD [address] [place], [address], [address] [facility] 06/18/2024 18:19:56 07/15/2024 text/html HIVOn Biktarvy 1 tab po qd.reports daily compliance. denies missing dose.thrush on/off: recurrence. on clotrimazole daily .stable weight 120lbshe says he is eating more and apetitte has improvedfeels strongergetting serostim dailyno hospitalizations since he was last seenmed list reviewed.On Eliquis and enoxaparin. recent PE/DVT.VL nondetected03/2024 HIV VL nondetctedHIV VL nondetetcted01/2024 HIV VL nondetcetd;eGFR=76;AST /ALT wnl;11/2023 FJ4=984; HIV VLnondetceted; no infections. Cheryl Street MD [address] [place], [address], [address] [facility] 07/15/2024 15:47:48 10/21/2024 text/html HIVOn Biktarvy [...] notify site start date and confirm medication. PROCUREMENT CLERK in room with his consent. Cheryl Street MD [address] [place] [address], [phone], [place] - [address] [facility] 10/21/2024 14:34:28 11/25/2024 text/html HIVOn Biktarvy [...] cyst removal in recent weeks. outpatient/day procedure. PROCUREMENT CLERK in room with his consent. 07/2025 HIV VL nondetceted; ALt/AST wnl; eGFR>60; RP3=[address] MD [address] [place] [address], [phone], [place] [address] [facility] 11/26/2024 15:09:42 12/30/2024 text/html HIVOn Biktarvy 1 tab po qd.reports daily compliance. denies missing dose.thrush. gets on/off and using clotrimazole to treat/suppress.gaining weight: 120lbs ---145lbs --152 lbsno aspirationgetting serostim daily for cachexia,no side effects.might get G tube removed in February 2025.no hospitalizations since he was last seenmed list reviewed. PROCUREMENT CLERK on vacation in [facility]. came in today with a john brightVYordy nondetceted;07/2025 HIV VL nondetceted; ALt/AST wnl; eGFR>60; CB8=[address] MD [address] [place] [address], [phone], [address] [facility] 12/30/2024 16:39:33
== END 2025-02-09 10:32 | disposition home or self-care (01) ==
LOC: HO.HPS 09:48
PROVIDERS: PCP Student in an Organized Health Care Education/Training Program; Visit Provider Nurse Practitioner Family
DX: J45.909 Unspecified asthma, uncomplicated (principal); R13.10 Dysphagia, unspecified; Z21 Asymptomatic human immunodeficiency virus [HIV] infection status; Z86.711 Personal history of pulmonary embolism
CPT/HCPCS: 99214; G2211

== ENCOUNTER → 2025-02-09 09:47 | Outpatient (BNVA) | payer OTHER, SELFPAY | PROVIDERS: PCP Student in an Organized Health Care Education/Training Program; Visit Provider Nurse Practitioner Family | DX: J45.40 Moderate persistent asthma, uncomplicated (principal); J96.11 Chronic respiratory failure with hypoxia; R13.10 Dysphagia, unspecified; Z21 Asymptomatic human immunodeficiency virus [HIV] infection status; G47.34 Idiopathic sleep related nonobstructive alveolar hypoventilation; Z86.711 Personal history of pulmonary embolism; Z87.891 Personal history of nicotine dependence | CPT/HCPCS: 99212 ==

== ENCOUNTER 2025-02-17 11:21 | Outpatient (AMB) | payer OTHER, SELFPAY ==
--- NOTE | 2025-02-17 11:38 | AM.OFFVISNUR ---
Intake Visit Reasons: Evenity#5 Allergies Seasonal Allergies Allergy (Intermediate, Verified 02/09/25 09:55) Eye Drainage codeine [From Tylenol-Codeine #3] Allergy (Mild, Verified 02/09/25 09:55) Rash levofloxacin [From Levaquin] Allergy (Mild, Verified 02/09/25 09:55) Rash metoclopramide [From Reglan] Allergy (Mild, Verified 02/09/25 09:55) Rash acetaminophen [Tylenol-Codeine #3] Allergy (Unknown, Verified 02/09/25 09:55) Rash Penicillins [PENICILLINS] Allergy (Unknown, Verified 02/09/25 09:55) Rash ibuprofen [From Motrin] Adverse Reaction (Unknown, Verified 02/09/25 09:55) Reflux Office Meds romosozumab-aqqg 210 mg/2.34 mL(105 mg/1.17 mL x2)subcutaneous syringe Performing Provider: Ritu Scott MD Performing Location[place] [facility] Administered by: Na Croft RN on 02/17/25 11:38 Dose Route Admin Location Dispensed Lot Number Expiration Date [facility] [employer] 210 mg subcut bilateral upper arms 2.34 mL [id number] 04/09/27 43745-514-60 [facility] Comments: Pt accompanied by DRUM SPRAYER, pt tolerated injection well. No adverse reactions reported from previous injection. Next appt scheduled in 4 weeks for injection. No further questions at this time. Assessment & Plan Assessment & Plan Orders: Orders AMB Romosozumab Injection Patient Supplied Today M81.0 - Age-related osteoporosis without current pathological fracture Medications: New romosozumab-aqqg 210 mg (2.34 mL) subcut ONCE 2.34 mL 0RF M81.0 - Age-related osteoporosis without current pathological fracture Coding
--- OUTSIDE RECORDS SUMMARY | 2025-02-17 13:39 | XMS_ITS | Data Portability ---
Author Organization LYNN WHITE MD [facility], Main Office Address [address] [place] [address] Assessment No assessment recorded. Plan of Treatment Reminders Order Date Submit Date Provider Last Modified By Organization Details Last Modified Time Details Appointments RESEARCH FOLLOW UP 2024 10:00A [address] MD Not available Not available Not available Lab None recorded . Referral None recorded . Procedures None recorded . Surgeries None recorded . Imaging electroc ardiogra m 2023 024 cheryl Main Office, [address] [place] [address], [address], 07/15/2024 15:47:38 Medication Orders clotrima zole 10 mg klaudia 2024 025 [facility]armacy #[id number], [address] [place], [address], 12/30/2024 16:32:25 Biktarvy 50 mg-200 mg-25 mg tablet 2024 025 [facility]/Pharmacy #2071, [address] [place], [address], 12/30/2024 16:32:25 clotrima zole 10 mg klaudia 2024 025 [facility]/Pharmacy #2071, [address] [place], [address], 11/25/2024 13:20:54 Benadryl 25 mg capsule 2024 025 [facility]/Pharmacy #2071, [address] [place], [address], 11/25/2024 13:20:55 Biktarvy 50 mg-200 mg-25 mg tablet 2024 025 [facility] [address] [place], [address], 11/25/2024 13:20:54 clotrima zole 10 mg klaudia 2024 025 [facility] [address] [place], [address], 10/21/2024 14:29:45 Biktarvy 50 mg-200 mg-25 mg tablet 2024 025 [facility] [address] [place], [address], 10/21/2024 14:30:45 Patient TargetsNo targets recorded. Patient Instructions Encounter Date Encounter Id Patient Instructions Last Modified By Organization Details Last Modified Time 10/21/2024 [id number] Clotrimazole Oral Lozenge (CLOTRIMAZOLE LOZENGE - MUCOUS MEMBRANE (ORAL)) [email or web address] Not available 10/21/2024 14:29:44 Reason for Referral None Reported. Results Created Date Observation Date Name Description Value Unit Range Abnormal Flag Note LastModifiedBy Organization Detail LastModifiedTime 06/18/20 24 06/04/2024 US, abdom en, compl ete No observ ation record ed. [email or web address] [place], [address], 06/18/2024 11:12:25 07/15/20 24 07/15/2024 elect rocar diogr am No observ ation record ed. [email or web address] Main Office [address] [place], [address], 07/15/2024 17:12:05 07/17/20 24 elect rocar diogr am No observ ation record ed. [email or web address] Main Office [address] [place], [address], 07/17/2024 14:15:04 Result Notes None recorded. Problems Name Problem SNOMED Code Status Onset Date Resolution Date Notes Provider Name and Address Organization Details Recorded Time Asthma 347555174 Active 2006 Asthma; snomeddesc ription: Asthma; Report Immunity to Registry: Yes; Asthma; Report Immunity to Registry: Yes; ReasonDate : 10/13/2019 ; ; Start Date : 10/13/2019 Asthma; snomeddesc ription: Asthma; Report Immunity to Registry: Yes; Not Available [facility] 4 06:58:53 Male hypogonad ism 70083494 Active 2012 Male hypogonadi sm; snomeddesc ription: Male hypogonadi sm; Report Immunity to Registry: Yes; Not Available [facility] 4 06:58:53 Diarrhea 70898067 Active 2006 Diarrhea; snomeddesc ription: Diarrhea; Report Immunity to Registry: Yes; Diarrhea, unspecifie d; snomeddesc ription: Diarrhea; Report Immunity to Registry: Yes; Not Available [facility] 4 06:58:53 Substance abuse 55403820 Active 2006 Substance abuse; snomeddesc ription: Substance abuse; Report Immunity to Registry: Yes; Notes: opiate/suad jolene/benzo ; Not Available [facility] 4 06:58:53 Human immunodef iciency virus infection 14076636 Active 1991 Human immunodefi ciency virus [HIV] disease; snomeddesc ription: Human immunodefi ciency virus infection; Report Immunity to Registry: Yes; Human immunodefi ciency virus infection; snomeddesc ription: Human immunodefi ciency virus infection; Report Immunity to Registry: Yes; Not Available [facility] 4 06:58:53 Steatotic liver disease 864230147 Active 2006 Steatosis of liver; snomeddesc ription: Steatosis of liver; Report Immunity to Registry: Yes; Notes: u/s 2021; Fatty (change of) liver, not elsewhere classified ; snomeddesc ription: Steatosis of liver; Report Immunity to Registry: Yes; Notes: u/s 2021; Not Available [facility] 4 06:58:53 Herpesvir us infection 56203403 Active 2009 Herpesvira l infection, unspecifie d; snomeddesc ription: Herpes simplex; Report Immunity to Registry: Yes; Notes: HSV 1 pos serology; HSV 2 neg serology; Not Available [facility] 4 06:58:53 Fibromyos itis 88020151 Active 2006 Myalgia and myositis, unspecifie d; snomeddesc ription: Fibromyalg ia; Report Immunity to Registry: Yes; Notes: Chronic pain multiple/c hronic back pain; Not Available [facility] 4 06:58:53 Herpes simplex 53254335 Active 2009 Herpes simplex; snomeddesc ription: Herpes simplex; Report Immunity to Registry: Yes; Notes: HSV 1 pos serology; HSV 2 neg serology; Not Available [facility] 4 06:58:54 Kidney stone 55189276 Active 2001 Calculus of kidney; snomeddesc ription: Kidney stone; Report Immunity to Registry: Yes; Kidney stone; snomeddesc ription: Kidney stone; Report Immunity to Registry: Yes; Not Available [facility] 4 06:58:54 History of calculus of kidney 786558912 Active 2001 History of calculus of kidney; snomeddesc ription: History of calculus of kidney; Report Immunity to Registry: Yes; Not Available [facility] 4 06:58:54 Type B viral hepatitis 37496368 Active 2006 Type B viral hepatitis; snomeddesc ription: Type B viral hepatitis; Report Immunity to Registry: Yes; Notes: core ab pos; s ag neg; s ab neg HBV vL nondetecte d 2016; 2017; Not Available [facility] 4 06:58:54 Hyperplas ia of prostate 718004726 Active 2014 Hyperplasi a of prostate, unspecifie d, without urinary obstructio n and other lower urinary symptoms (LUTS); snomeddesc ription: Hyperplasi a of prostate; Report Immunity to Registry: Yes; Hyperplas ia of prostate; snomeddesc ription: Hyperplasi a of prostate; Report Immunity to Registry: Yes; Not Available [facility] 4 06:58:54 Anxiety 19696731 Active 1996 Anxiety; snomeddesc ription: Anxiety; Report Immunity to Registry: Yes; Not Available [facility] 4 06:58:54 Testicula r hypofunct ion 279155097 Active 2012 Other testicular hypofuncti on; snomeddesc ription: Male hypogonadi sm; Report Immunity to Registry: Yes; Not Available [facility] 4 06:58:54 Seasonal allergic rhinitis 819041956 Active 2012 Other seasonal allergic rhinitis; snomeddesc ription: Seasonal allergy; Report Immunity to Registry: Yes; Notes: hx nasal congestion ; Not Available [facility] 4 06:58:54 Onychomyc osis due to dermatoph yte 165737232 Active 2017 Tinea unguium; snomeddesc ription: Onychomyco sis; Report Immunity to Registry: Yes; Notes: feet digits; Not Available [facility] 4 06:58:55 Sleep apnea 61724739 Active 1999 Sleep apnea; snomeddesc ription: Sleep apnea; Report Immunity to Registry: Yes; Unspecifi ed sleep apnea; snomeddesc ription: Sleep apnea; Report Immunity to Registry: Yes; Not Available [facility] 4 06:58:55 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 89349937 Active 2006 Other psychoacti ve substance abuse, uncomplica lucho; snomeddesc ription: Substance abuse; Report Immunity to Registry: Yes; Notes: opiate/suad jolene/benzo ; Not Available [facility] 4 06:58:55 Viral hepatitis B without hepatic coma 623690992 Active 2006 Unspecifie d viral hepatitis B without hepatic coma; snomeddesc ription: Type B viral hepatitis; Report Immunity to Registry: Yes; Notes: core ab pos; s ag neg; s ab neg HBV vL nondetecte d 2016; 2017; Not Available [facility] 4 06:58:55 Blood chemistry outside reference range 839236128 Active 2012 Other specified abnormal findings of blood chemistry; snomeddesc ription: Decreased testostero ne level; Report Immunity to Registry: Yes; Notes: hypogoandi sm; Not Available [facility] 4 06:58:55 Arthritis 6343356 Active 1998 Arthritis; snomeddesc ription: Arthritis; Report Immunity to Registry: Yes; Notes: Osteoatrth ris multiple; Not Available [facility] 4 06:58:55 History of urinary stone 294093761 Active 2001 Personal history of urinary calculi; snomeddesc ription: History of calculus of kidney; Report Immunity to Registry: Yes; Not Available [facility] 4 06:58:56 Fibromyal mika 232669919 Active 2006 Fibromyalg ia; snomeddesc ription: Fibromyalg ia; Report Immunity to Registry: Yes; Notes: Chronic pain multiple/c hronic back pain; Not Available [facility] 4 06:58:56 Lyme disease 70548592 Active 2017 Lyme disease; Report Immunity to Registry: Yes; Notes: tx cefuroxime x14 d (hx all Doxy); Not Available [facility] 4 06:58:56 Headache 40369043 Active 2008 Headache; snomeddesc ription: Headache; Report Immunity to Registry: Yes; Notes: migraine; Headache; snomeddesc ription: Headache; Report Immunity to Registry: Yes; Notes: migraine; Not Available [facility] 4 06:58:56 Hypertens marj disorder 31347365 Active 2017 Hypertensi ve disorder; snomeddesc ription: Hypertensi ve disorder; Report Immunity to Registry: Yes; Not Available [facility] 4 06:58:56 Arthropat hy 117365486 Active 1998 Arthropath y, unspecifie d, site unspecifie d; snomeddesc ription: Arthritis; Report Immunity to Registry: Yes; Notes: Osteoatrth ris multiple; Not Available [facility] 4 06:58:56 Essential hypertens ion 33143302 Active 2017 Essential (primary) hypertensi on; snomeddesc ription: Hypertensi ve disorder; Report Immunity to Registry: Yes; Not Available [facility] 4 06:58:57 Testoster one level below reference range 853778778 Active 2012 Decreased testostero ne level; snomeddesc ription: Decreased testostero ne level; Report Immunity to Registry: Yes; Notes: hypogoandi sm; Not Available [facility] 4 06:58:57 Insomnia 017576131 Active 1996 Insomnia; Report Immunity to Registry: Yes; Not Available [facility] 4 06:58:57 Anxiety state 141937559 Active 1996 Anxiety state, unspecifie d; snomeddesc ription: Anxiety; Report Immunity to Registry: Yes; Not Available [facility] 4 06:58:57 Onychomyc osis 412202890 Active 2017 Onychomyco sis; snomeddesc ription: Onychomyco sis; Report Immunity to Registry: Yes; Notes: feet digits; Not Available [facility] 4 06:58:57 Chronic hepatitis C 664020770 Active 2006 Chronic hepatitis C without mention [...] 12/2021 F2 ; Not Available [facility] 4 06:58:57 Depressiv e disorder 44668728 Active 1996 Depressive disorder, not elsewhere classified ; snomeddesc ription: Depressive disorder; Report Immunity to Registry: Yes; Depressiv e disorder; snomeddesc ription: Depressive disorder; Report Immunity to Registry: Yes; Not Available [facility] 4 06:58:58 Seasonal allergy 568006174 Active 2012 Seasonal allergy; snomeddesc ription: Seasonal allergy; Report Immunity to Registry: Yes; Notes: hx nasal congestion ; Not Available [facility] 4 06:58:58 Loss of appetite 94640210 Active 2012 Anorexia; snomeddesc ription: Loss of appetite; Report Immunity to Registry: Yes; Loss of appetite; snomeddesc ription: Loss of appetite; Report Immunity to Registry: Yes; Not Available [facility] 4 06:58:58 Seizure 49665148 Active 2000 Seizure; snomeddesc ription: Seizure; Report [...] to Registry: Yes; Not Available [facility] 4 06:58:58 Problem Notes None recorded. Medical Equipment None Reported. Allergies Allergen ID Allergen Name Allergen Category Reaction Reaction Severity Criticality Documentation Date Start Date Code Code System Note Provider Name and Address Organization Details Recorded Time 714 Reglan medicatio n Not available Not available Not available 10/31/20232012 9230 RxNorm Comme nt: adver se_ev ent_t ype: 13466 8002; ; Not Available [facility] 4 06:50:47 715 Motrin medicatio n Not available Not available Not available 10/31/2023201248 8 RxNorm Comme nt: adver se_ev ent_t ype: 77836 8002; ; Not Available [facility] 4 06:50:47 716 doxycycli ne Not available Not available Not available Not available 10/31/20232017 3640 RxNorm Comme nt: adver se_ev ent_t ype: 81959 8002; ; Not Available [facility] 4 06:50:47 Medications Name Sig Start Date [...] HORAS CUANDO SEA NECESARI O PARA EL DOLOR-CA LD POR 10 D active Not Available [...] Available Liquid Nutrition oral 0 Quantity : 28743; Duration : 30; 0 refill(s ) 09/30 [...] Not Available Not Available Not Available Afluria 0447-0579 45 mcg (15 mcg x 3)/0.5 mL [...] Pneumoco ccal conjugat e PCV20, polysacc haride [id number] conjugat e, adjuvant , PF; Not Available Not Available Not Available Vitals Date Recorded Heart rate Body temperature Body weight Systolic blood pressure Diastolic blood pressure Provider Name and Address Organization Details Last Updated DateTime 10/21/2024 98 /min 98.2 [degF] 14436.2 6 g 118 mm[Hg] 97 mm[Hg] Lexis PENDLETON 12:04:23 Date Recorded Body height Heart rate Respiratory rate Body mass index (BMI) Body weight Systolic blood pressure Diastolic blood pressure Provider Name and Address Organization Details Last Updated DateTime 162.56 cm 81 /min 20 /min 24.9 kg/m2 77043.8 9 g 136 mm[Hg] 89 mm[Hg] Cheryl Street MD [address] [place] [address] marcie, [place], [address], [address] [facility] 5 15:01:34 Date Recorded Heart rate Body mass index (BMI) Body weight Respiratory rate Systolic blood pressure Diastolic blood pressure Provider Name and Address Organization Details Last Updated DateTime 5 92 /min 26.1 kg/m2 09107.0 4 g 16 /min 108 mm[Hg] 83 mm[Hg] Cheryl Street MD [address] [place], [address], [facility] [address] [facility] 5 16:33:39 Date Recorded Body height Provider Name an d Address Organization Details Last Updated DateTime 12/30/2024 162.[address] [facility] 12/30/2024 15:08:38 Date Recorded Body height Heart rate Respiratory rate Body temperature Body mass index (BMI) Body weight Systolic blood pressure Diastolic blood pressure Provider Name and Address Organization Details Last Updated DateTime 4 162.56 cm 89 /min 16 /min 98 [degF] 20.6 kg/m2 97149.0 8 g 123 mm[Hg] 90 mm[Hg] Jerome [facility] [facility] 4 14:28:38 Date Recorded Body temperature Body mass index (BMI) Body weight Respiratory rate Heart rate Systolic blood pressure Diastolic blood pressure Provider Name and Address Organization Details Last Updated DateTime 4 98.7 [degF] 20.6 kg/m2 09625.0 8 g 20 /min 87 /min 120 mm[Hg] 80 mm[Hg] Cheryl Street MD [address] [place], [address], [address] [facility] [facility] 4 15:46:02 Date Recorded Body height Provider Name an d Address Organization Details Last Updated DateTime 07/15/[address] [facility] 07/15/2024 15:22:29 Social History None recorded. Functional [...] MCV4O 9 completed Not Available [facility] 10/31/2023 06:54:49 zoster live 9 completed Not Available [facility] 10/31/2023 06:54:50 Influenza, split virus, quadrivalent, preservative 9 completed Not Available [facility] 10/31/2023 06:54:50 Influenza, split virus, quadrivalent, preservative 8 completed Not Available [facility] 10/31/2023 06:54:50 Influenza, split virus, quadrivalent, preservative 0 completed Not Available [facility] 10/31/2023 06:54:50 Past Encounters Encounter ID Performer Location Encounter Start Date Encounter Closed Date Diagnosis/Indication Diagnosis SNOMED-CT Code Diagnosis ICD10 Code Diagnosis Note [address] MD Main Office [address] [place] [address] 05/25/2023 09:48:40 06/27/2023 09:16:16 Human immunodeficiency virus infection 43819146 B20 HIV. Continue Biktarvy 1 tab po [...] /Tivicay.. safe sex. plan of care reviewed [address] MD Main Office [address] [place] [address] 08/24/2023 09:33:00 08/24/2023 10:46:09 Human immunodeficiency virus infection 99400376 B20 HIV. Continue Biktarvy 1 tab po [...] /Tivicay.s afe sex.labs Septemberlan of care reviewed [address] MD Main Office [address] [place] [address] 11/12/2023 11:34:42 11/16/2023 15:00:47 Human immunodeficiency virus infection 47020027 B20 HIV.Contin ue Biktarvy 1 tab po qd.U=Upt aware of PreP availabili ty.condom use.plan of care reviewed Adult [facility] th examination 818962993 Z00.[address] MD Main Office [address] [place] [address] 11/21/2023 10:59:43 11/23/2023 14:55:[address] MD Main Office [address] [place] [address] 01/14/2024 09:27:39 01/16/2024 13:51:[address] MD Main Office [address] [place] [address] 01/16/2024 10:24:39 01/16/2024 11:50:10 Human immunodeficiency virus infection 69608231 B20 HIV.Contin ue Biktarvy 1 tab po qd.U=Upt aware of PreP availabili ty.condom use.labs todayplan of care reviewed Candidiasis of mouth 797 60800 B37.0 nystatin 5cc po qid x 14 days. swish and spit.call with any side effects.ba cterial/fu ngal swab obtained. 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 [address] MD Main Office [address] [place] [address] 02/14/2024 12:00:04 02/14/2024 12:24:19 Human immunodeficiency virus infection 65594878 B20 HIV.Contin ue Biktarvy 1 tab po qd.U=Upt aware of PreP availabili ty.DoxyPEP reviewedco ndom use.labs todayplan of care reviewed Methicilli n resistant Staphylococcus aureus infection 196952646 A49.02 swab culture 01/2024 Candidiasi s of the esophagus 34235334 B37.81 sandy glabratafl uconazole 100mg po qd x 14 dayscall with any side effects. Weight loss 81834144 R63 .4 contributi ng factor sandy, MRSA, HIV among othermight benefit from Serostim.w ill review with himG tube [address] MD Main Office [address] [place] [address] 02/21/2024 11:08:05 02/21/2024 12:09:56 Human immunodeficiency virus infection 95010828 B20 HIV.Contin ue Biktarvy 1 tab po qd.complia nce reviewedU= Upt aware of PreP availabili ty.DoxyPEP reviewedco ndom use.labs todayplan of care reviewed Candidiasi s of the esophagus 30504068 B37.81 sandy glabratato complete fluconazol e 100mg po bid x 14 days: (10mg/ml) 10ml by G tube bidcall with any side effects. Methicilli n resistant Staphylococcus aureus infection 304403132 A49.02 swab culture urr ently on Bactrim oral suspension (200mg- 40mg/5ml) since 02/15-20ml q 12 hrs G tube x 10 days Cachexia a ssociated with AIDS 917473899 B20 R64 weight loss. frail. progressin g.contribu ting factor sandy, MRSA, HIV among other. G tubeSerost im 6mg sq qd will be prescribed with the goal of helping w weight gain, increase muscle mass gain, and increase enduranceh e has visiting nurse who could assist with daily injections . [address] MD Main Office [address] [place] [address] 02/25/2024 10:24:53 02/25/2024 11:09:27 Human immunodeficiency virus infection 59709739 B20 HIV.Contin ue Biktarvy 1 tab po qd.complia nce reviewedU= Ucondom use.labs todayplan of care reviewed Candidiasi s of the esophagus B37.81 sandy glabratawi ll continue fluconazol e 200 mg po qd x 14 days: (10mg/ml) 10ml by G tube QD;will on next appointmen t for further tx va suppressio n tx.call with any side effects. Cachexia a ssociated with AIDS 790706608 B20 R64 weight loss. frail. progressin g.approved Serostim 6mg sq qd; awaiting delivery to the office. will be prescribed with the goal of helping w weight gain, increase muscle mass gain, and increase enduranceh e has visiting nurse who could assist with daily injections .ensure tidmegace 625 mg qd. Methicilli n resistant Staphylococcus aureus infection 899748599 A49.02 swab culture 01/2024will complete 10 days of Bactrim oral suspension (200mg- 40mg/5ml) since 02/15-20ml q 12 hrs G tube on 02/27/[address] MD Main Office [address] [place] [address] 03/14/2024 10:24:00 03/14/2024 10:29:25 Cachexia associated with AIDS 586851057 R64 B20 gained 2 pounds. probably improved sandy esophagiti s 2nd to inhaled steroids.S Tart Serostim 6mg s/c qd abdomen. first dose administer ed today. Tolerated well; goalis to increase weight, endurance and muscle massHe will have WEB PRESS OPERATOR ASSISTANT and nurse help with daily injections .potential side effects reviewed.t o call with any concernshe will fish bait picker Megace today, and start it as well(G tube) qd to increase apetitte Human immunodeficiency virus infection 98572278 B20 HIV.Contin ue Biktarvy 1 tab po qd.complia nce reviewed Candidiasi s of the esophagus B37.81 sandy glabratawi ll continue 2 more weeks of fluconazol e 200 mg po qd x 14 days: (10mg/ml) 10ml by G tube QD;might benefit from qw suppressio n tx.call with any side effects. [address] MD Main Office [address] [facility] [place] [address] 04/18/2024 09:52:00 04/18/2024 11:19:01 Cachexia associated with AIDS 182288332 R64 B20 124 lbs. gained weightcont inue Serostim 6mg s/c qd abdomen. goalis to increase weight, endurance and muscle masscontin ue Megace G tube qdCNA and nurse helping with compliance and tx.potenti al side effects reviewed.t o call with any concerns Human immunodeficiency virus infection 62869769 B20 HIV.Contin ue Biktarvy 1 tab po qd.compljordon copelande reviewedla bs today Candidiasi s of the esophagus 10433729 B37.81 sandy glabratawi ll continue fluconazol e 200 (10ml) mg G tube qw for suppressio n tx.call with any side effects. Aspiration pneumonia 422 019397 J69.0 get discharge summaryon antibiotic ;eat standing or sitting; and not sleeping/[place] [address] MD Main Office [address] [facility] [place] [address] 05/20/2024 10:17:53 05/20/2024 12:44:49 Cachexia associated with AIDS 559978143 R64 B20 continue Serostim 6mg s/c qd abdomen. goal is to increase weight, endurance and muscle masscontin ue Megace G tube qd 5cc qdCNA and nurse helping with compliance and tx.potenti al side effects reviewed.t o call with any concerns Human immunodeficiency virus infection 86609897 B20 HIV.Contin ue Biktarvy 1 tab po qd.complia nce reviewedla bs today Candidiasi s of the esophagus 60435538 B37.81 sandy glabrataho ld fluconazol e for nowSTART 1 tab po bid x 21 says for esophageal sandy glabrata.c all with any side effects. [address] MD Main Office [address] [facility] [place] [address] 06/18/2024 10:10:09 06/18/2024 11:12:33 Cachexia associated with AIDS 543387086 R64 B20 continue Serostim 6mg s/c qd abdomen. goal is to increase weight, endurance and muscle massCNA and nurse helping with compliance and tx.megace on holdpotent ial side effects reviewed.t o call with any concerns Human immunodeficiency virus infection 47646291 B20 HIV.Contin ue Biktarvy 1 tab po qd.padmini hoffman reviewedla bs today Inflammato ry disease of liver 588068265 K75.9 Suspect 2nd to concomitan t medication s. ongoingdo not re-start fluconazol e nor megacenega tive infectious and non-infect ious workupto call or ER if jaundice, abd pain, n/v/d marce huertas History of calculus of kidney 697278253 Z87.442 u/s 05/[address] scan 02/2024hydr ation Aspiration pneumonia 422 967426 J69.0 s/p aspiration on CT AngioNPO per instructio n given to him in hospital; nutrition by G tubes/p (ceftriaxo ne,Azithro ,Flagyl while in Hospital;d ischarged on azithro and cefpodoxim e x 3 days which he completed. leg elevationa void sedating meds as much as possible Deep venou s thrombosis of lower extremity 687731682 I82.409 left lower extremity doppler showed DVT of gastrocnem ius vein;on tx w w Eliquis bid . Pulmonary embolism [address] Angio was positive for Acute lobar PEs/p heparin; ongoing Eliquis bidmed list reviewed.n o drug use for years. not on maintenanc e tx.denies current ETOH use. [address] MD Main Office [address] [place] [address] 07/15/2024 15:10:10 07/15/2024 15:45:30 Cachexia associated with AIDS [id number] R64 B20 continue Serostim 6mg s/c qd abdomen. goal is to increase weight, endurance and muscle masspotent ial side effects reviewed.t o call with any concerns Human immunodeficiency virus infection 83417769 B20 HIV.Contin ue Biktarvy 1 tab po qd.padmini hoffman reviewedla bs Candidiasi s of the esophagus 7.81 on clotrimazo le. swish and spit qd Medication monitoring [id number]51[address] MD Main Office [address] [place] [address] 10/21/2024 12:22:54 10/21/2024 16:48:51 Cachexia associated with AIDS [id number] R64 B20 improvedco ntinue Serostim 6mg s/c qd abdomen. goal is to increase weight, endurance and muscle masspotent ial side effects reviewed.m ay start decreasing dose in 1-2 months if further weight gainon Boost protein shakesto call with any concerns Human immunodeficiency virus infection 90440132 B20 HIV.Contin ue Biktarvy 1 tab po qd.padmini hoffman reviewedla bs Candidiasi s of the esophagus 81 on clotrimazo le. 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 swish and spit qd/BID PRN for suppressio n Insomnia [id number] G47.0 0 benadryl capsules requested by patient forinsomni a and itchiness as needed.cor rect use reviewed. [address] MD Main Office [address] [facility] [address] 12/30/2024 15:04:38 12/31/2024 09:52:40 Cachexia associated with AIDS [id number] R64 B20 improvedco ntinue Serostim 6mg s/c [...] with any concerns Human immunodeficiency virus infection 81088302 B20 HIV.Contin ue Biktarvy 1 tab po qd.complia nce reviewedla bs Candidiasi s of the esophagus [id number] B37.81 off/on; recurrento n clotrimazo le. swish [...] & [place] ([place]ANT[place] - PPO) [facility] [id number] [facility] 07/15/2024 1 [employer] - DOS ON OR AFTER 2022 - MEDICARE ADVANTAGE [place] & [place] (MED[place] REPLACEMENT/AD VANTAGE - PPO) [facility] [id number] [facility] 10/21/2024 1 [employer] - DOS ON OR AFTER 2022 - [place]IC[place] ADVANTAGE [place]ANT[place] - PPO) [facility] [id number] [facility] 11/25/2024 1 [employer] - DOS ON OR AFTER 2022 - [place]IC[place]AGE [place]ANT[place] - PPO) [facility] [id number] [facility] 12/30/2024 1 [employer] - DOS ON OR AFTER 2022 - [place]IC[place] AD[place]AGE [place]ANT[place] - PPO) [facility] [id number] [facility] Juan David Notes Date Note Type [...] VL nondetetcted01/2024 HIV VL nondetcetd;eGFR=76;AST /ALT wnl;11/2023 TZ4=377; HIV VLnondetceted; no infections.01/2022 HF1=196; HIV VL nondetceted; eGFR>60; ALt/AST wnl; syphilis neg; GC/chlamydia neg [address]yl [address] MD [address] [place], [address], [address] [facility] 06/18/2024 18:19:56 07/15/2024 text/html HIVOn Biktarvy 1 tab po qd.reports daily compliance. denies missing dose.thrush on/off: recurrence. on clotrimazole daily .stable weight 120lbshe says he is eating more and apetitte has improvedfeels strongergetting serostim dailyno hospitalizations since he was last seenmed list reviewed.On Eliquis and enoxaparin. recent PE/DVT.VL nondetected03/2024 HIV VL nondetctedHIV VL nondetetcted01/2024 HIV VL nondetcetd;eGFR=76;AST /ALT wnl;11/2023 KE2=470; HIV VLnondetceted; no infections. Cheryl Street MD [address] [place], [address], [address] [facility] 07/15/2024 15:47:48 10/21/2024 text/html HIVOn [...] notify site start date and confirm medication. 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 Cheryl Street MD [address] [place] [address], [phone], [place] - [address] [facility] 10/21/2024 14:34:28 11/25/2024 text/html HIVOn [...] cyst removal in recent weeks. outpatient/day procedure. 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 07/2025 HIV VL nondetceted; ALt/AST wnl; eGFR>60; GO3=[address] MD [address] [place] [address], [phone], [place] [facility] [address] [facility] 11/26/2024 15:09:42 12/30/2024 text/html HIVOn Biktarvy 1 tab po qd.reports daily compliance. denies missing dose.thrush. gets on/off and using clotrimazole to treat/suppress.gaining weight: 120lbs ---145lbs --152 lbsno aspirationgetting serostim daily for cachexia,no side effects.might get G tube removed in February 2025.no hospitalizations since he was last seenmed list reviewed. 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 came in today with a john brightVYordy nondetceted;07/2025 HIV VL nondetceted; ALt/AST wnl; eGFR>60; JN7=[address] MD [address] [place] [address], [phone], [address] [facility] 12/30/2024 16:39:33
== END 2025-02-17 11:37 | disposition home or self-care (01) ==
LOC: HO.ENCR 11:22
PROVIDERS: PCP Student in an Organized Health Care Education/Training Program; Visit Provider Student in an Organized Health Care Education/Training Program
DX: M81.0 Age-related osteoporosis without current pathological fracture (principal)

== ENCOUNTER → 2025-02-17 11:21 | Outpatient (BNVA) | payer OTHER, SELFPAY | PROVIDERS: PCP Student in an Organized Health Care Education/Training Program; Visit Provider Student in an Organized Health Care Education/Training Program | DX: M81.0 Age-related osteoporosis without current pathological fracture (principal) | CPT/HCPCS: 96372; J3111 ==

== ENCOUNTER 2025-03-02 09:37 | Outpatient (REF) | payer OTHER, SELFPAY ==
--- NOTE | ~2025-03-02 | US_ITS ---
CLINICAL HISTORY: R39.9 - Unspecified symptoms and signs involving the genitourinary system Retroperitoneal ultrasound Comparison: None available Findings: The kidneys are normal in echotexture bilaterally. No hydronephrosis. Right nephrolithiasis measures up to 4 mm. Left nephrolithiasis measures up to 5 mm. The right kidney is normal in size, measuring 10.7cm in length. The left kidney is normal in size, measuring 11.2cm in length. The urinary bladder is unremarkable. Prevoid volume 376 mL. Postvoid volume 59.2 mL. Ureteral jets are visualized bilaterally. The prostate is normal in size, measuring 2.7 x 2.9 x 2.8cm, volume of 11.3 mL. Impression: Elevated postvoid residual volume may indicate urinary retention. No hydronephrosis. Bilateral nephrolithiasis. This document has been electronically signed by: Leticia Roberts MD on 03/03/2025 15:20:29
--- OUTSIDE RECORDS SUMMARY | 2025-03-02 10:24 | XMS_ITS | Data Portability ---
Author Organization LYNN WHITE MD [facility], Main Office Address [address] [place] [address] Assessment No assessment recorded. Plan of Treatment Reminders Order Date Submit Date Provider Last Modified By Organization Details Last Modified Time Details Appointments ANAL PAP 2024 09:00A Wilmer Street MD Not available Not available Not available RESEARCH FOLLOW UP 2024 10:00A Wilmer [address] MD Not available Not available Not available Lab None recorded . Referral None recorded . Procedures None recorded . Surgeries None recorded . Imaging electroc ardiogra m 2023 024 [email or web address] Main Office, [address] [place] [address], [address], 07/15/2024 15:47:38 Medication Orders clotrima zole 10 mg klaudia 2024 025 [facility] #[id number], [address] [place], [address], 12/30/2024 16:32:25 Biktarvy 50 mg-200 mg-25 mg tablet 2024 025 [facility] #[id number], [address] [place], [address], 12/30/2024 16:32:25 clotrima zole 10 mg klaudia 2024 025 [facility] #2071, [address] [place], [address], 11/25/2024 13:20:54 Benadryl 25 mg capsule 2024 025 [facility] #2071, [address] [place], [address], 11/25/2024 13:20:55 Biktarvy 50 mg-200 mg-[address] [facility] [address] [place], [address], 11/25/2024 13:20:54 clotrima zole [address] [facility] [address] [place], [address], 10/21/2024 14:29:45 Biktarvy 50 mg-200 mg-[address] [facility] [address] [place], [address], 10/21/2024 14:30:45 Patient TargetsNo targets recorded. Patient Instructions Encounter Date Encounter Id Patient Instructions Last Modified By Organization Details Last Modified Time 10/21/2024 [id number] Clotrimazole Oral Lozenge (CLOTRIMAZOLE LOZENGE - MUCOUS MEMBRANE (ORAL)) [email or web address] Not available 10/21/2024 14:29:44 Reason for Referral None Reported. Results Created Date Observation Date Name Description Value Unit Range Abnormal Flag Note LastModifiedBy Organization Detail LastModifiedTime 06/18/2006/04/2024 US, abdom en, compl ete No observ ation record ed. [email or web address] [place], [address], 06/18/2024 11:12:25 07/15/20 24 07/15/2024 elect rocar diogr am No observ ation record ed. [email or web address] Main Office [address] [place], [address], 07/15/2024 17:12:05 07/17/20 elect rocar diogr am No observ ation record ed. [email or web address] Main Office [address] [place], [address], 07/17/2024 14:15:04 Result Notes None recorded. Problems Name Problem SNOMED Code Status Onset Date Resolution Date Notes Provider Name and Address Organization Details Recorded Time Asthma 312703145 Active 2006 Asthma; snomeddesc ription: Asthma; Report Immunity to Registry: Yes; Asthma; Report Immunity to Registry: Yes; ReasonDate : 10/13/2019 ; ; Start Date : 10/13/2019 Asthma; snomeddesc ription: Asthma; Report Immunity to Registry: Yes; Not Available [facility] 4 06:58:53 Male hypogonad ism 87968741 Active 2012 Male hypogonadi sm; snomeddesc ription: Male hypogonadi sm; Report Immunity to Registry: Yes; Not Available [facility] 4 06:58:53 Diarrhea 26472067 Active 2006 Diarrhea; snomeddesc ription: Diarrhea; Report Immunity to Registry: Yes; Diarrhea, unspecifie d; snomeddesc ription: Diarrhea; Report Immunity to Registry: Yes; Not Available [facility] 4 06:58:53 Substance abuse 60845910 Active 2006 Substance abuse; snomeddesc ription: Substance abuse; Report Immunity to Registry: Yes; Notes: opiate/suad jolene/benzo ; Not Available [facility] 4 06:58:53 Human immunodef iciency virus infection 59090696 Active 1991 Human immunodefi ciency virus [HIV] disease; snomeddesc ription: Human immunodefi ciency virus infection; Report Immunity to Registry: Yes; Human immunodefi ciency virus infection; snomeddesc ription: Human immunodefi ciency virus infection; Report Immunity to Registry: Yes; Not Available [facility] 4 06:58:53 Steatotic liver disease 056459953 Active 2006 Steatosis of liver; snomeddesc ription: Steatosis of liver; Report Immunity to Registry: Yes; Notes: u/s 2021; Fatty (change of) liver, not elsewhere classified ; snomeddesc ription: Steatosis of liver; Report Immunity to Registry: Yes; Notes: u/s 2021; Not Available [facility] 4 06:58:53 Herpesvir us infection 39259287 Active 2009 Herpesvira l infection, unspecifie d; snomeddesc ription: Herpes simplex; Report Immunity to Registry: Yes; Notes: HSV 1 pos serology; HSV 2 neg serology; Not Available [facility] 4 06:58:53 Fibromyos itis 05932178 Active 2006 Myalgia and myositis, unspecifie d; snomeddesc ription: Fibromyalg ia; Report Immunity to Registry: Yes; Notes: Chronic pain multiple/c hronic back pain; Not Available [facility] 4 06:58:53 Herpes simplex 10949996 Active 2009 Herpes simplex; snomeddesc ription: Herpes simplex; Report Immunity to Registry: Yes; Notes: HSV 1 pos serology; HSV 2 neg serology; Not Available [facility] 4 06:58:54 Kidney stone 67640068 Active 2001 Calculus of kidney; snomeddesc ription: Kidney stone; Report Immunity to Registry: Yes; Kidney stone; snomeddesc ription: Kidney stone; Report Immunity to Registry: Yes; Not Available [facility] 4 06:58:54 History of calculus of kidney 555515828 Active 2001 History of calculus of kidney; snomeddesc ription: History of calculus of kidney; Report Immunity to Registry: Yes; Not Available [facility] 4 06:58:54 Type B viral hepatitis 19766784 Active 2006 Type B viral hepatitis; snomeddesc ription: Type B viral hepatitis; Report Immunity to Registry: Yes; Notes: core ab pos; s ag neg; s ab neg HBV vL nondetecte d 2016; 2017; Not Available [facility] 4 06:58:54 Hyperplas ia of prostate 469429038 Active 2014 Hyperplasi a of prostate, unspecifie d, without urinary obstructio n and other lower urinary symptoms (LUTS); snomeddesc ription: Hyperplasi a of prostate; Report Immunity to Registry: Yes; Hyperplas ia of prostate; snomeddesc ription: Hyperplasi a of prostate; Report Immunity to Registry: Yes; Not Available [facility] 4 06:58:54 Anxiety 41886812 Active 1996 Anxiety; snomeddesc ription: Anxiety; Report Immunity to Registry: Yes; Not Available [facility] 4 06:58:54 Testicula r hypofunct ion 329591528 Active 2012 Other testicular hypofuncti on; snomeddesc ription: Male hypogonadi sm; Report Immunity to Registry: Yes; Not Available [facility] 4 06:58:54 Seasonal allergic rhinitis 665775505 Active 2012 Other seasonal allergic rhinitis; snomeddesc ription: Seasonal allergy; Report Immunity to Registry: Yes; Notes: hx nasal congestion ; Not Available [facility] 4 06:58:54 Onychomyc osis due to dermatoph yte 022801238 Active 2017 Tinea unguium; snomeddesc ription: Onychomyco sis; Report Immunity to Registry: Yes; Notes: feet digits; Not Available [facility] 4 06:58:55 Sleep apnea 13518440 Active 1999 Sleep apnea; snomeddesc ription: Sleep apnea; Report Immunity to Registry: Yes; Unspecifi ed sleep apnea; snomeddesc ription: Sleep apnea; Report Immunity to Registry: Yes; Not Available [facility] 4 06:58:55 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 26974795 Active 2006 Other psychoacti ve substance abuse, uncomplica lucho; snomeddesc ription: Substance abuse; Report Immunity to Registry: Yes; Notes: opiate/suad jolene/benzo ; Not Available [facility] 4 06:58:55 Viral hepatitis B without hepatic coma 600195666 Active 2006 Unspecifie d viral hepatitis B without hepatic coma; snomeddesc ription: Type B viral hepatitis; Report Immunity to Registry: Yes; Notes: core ab pos; s ag neg; s ab neg HBV vL nondetecte d 2017; Not Available [facility] 4 06:58:55 Blood chemistry outside reference range 403214607 Active 2012 Other specified abnormal findings of blood chemistry; snomeddesc ription: Decreased testostero ne level; Report Immunity to Registry: Yes; Notes: hypogoandi sm; Not Available [facility] 4 06:58:55 Arthritis 9608112 Active 1998 Arthritis; snomeddesc ription: Arthritis; Report Immunity to Registry: Yes; Notes: Osteoatrth ris multiple; Not Available [facility] 4 06:58:55 History of urinary stone 659861434 Active 2001 Personal history of urinary calculi; snomeddesc ription: History of calculus of kidney; Report Immunity to Registry: Yes; Not Available [facility] 4 06:58:56 Fibromyal mika 657460532 Active 2006 Fibromyalg ia; snomeddesc ription: Fibromyalg ia; Report Immunity to Registry: Yes; Notes: Chronic pain multiple/c hronic back pain; Not Available [facility] 4 06:58:56 Lyme disease 30822231 Active 2017 Lyme disease; Report Immunity to Registry: Yes; Notes: tx cefuroxime x14 d (hx all Doxy); Not Available [facility] 4 06:58:56 Headache 41776048 Active 2008 Headache; snomeddesc ription: Headache; Report Immunity to Registry: Yes; Notes: migraine; Headache; snomeddesc ription: Headache; Report Immunity to Registry: Yes; Notes: migraine; Not Available [facility] 4 06:58:56 Hypertens marj disorder 45465478 Active 2017 Hypertensi ve disorder; snomeddesc ription: Hypertensi ve disorder; Report Immunity to Registry: Yes; Not Available [facility] 4 06:58:56 Arthropat hy 521581184 Active 1998 Arthropath y, unspecifie d, site unspecifie d; snomeddesc ription: Arthritis; Report Immunity to Registry: Yes; Notes: Osteoatrth ris multiple; Not Available [facility] 4 06:58:56 Essential hypertens ion 45063519 Active 2017 Essential (primary) hypertensi on; snomeddesc ription: Hypertensi ve disorder; Report Immunity to Registry: Yes; Not Available [facility] 4 06:58:57 Testoster one level below reference range 810218436 Active 2012 Decreased testostero ne level; snomeddesc ription: Decreased testostero ne level; Report Immunity to Registry: Yes; Notes: hypogoandi sm; Not Available [facility] 4 06:58:57 Insomnia 770594140 Active 1996 Insomnia; Report Immunity to Registry: Yes; Not Available [facility] 4 06:58:57 Anxiety state 541546269 Active 1996 Anxiety state, unspecifie d; snomeddesc ription: Anxiety; Report Immunity to Registry: Yes; Not Available [facility] 4 06:58:57 Onychomyc osis 624644595 Active 2017 Onychomyco sis; snomeddesc ription: Onychomyco sis; Report Immunity to Registry: Yes; Notes: feet digits; Not Available [facility] 4 06:58:57 Chronic hepatitis C 942755013 Active 2006 Chronic hepatitis C without mention [...] neg 2015;2017; 12/2021 F2 ; Not Available [facility] 4 06:58:57 Depressiv e disorder 14238306 Active 1996 Depressive disorder, not elsewhere classified ; snomeddesc ription: Depressive disorder; Report Immunity to Registry: Yes; Depressiv e disorder; snomeddesc ription: Depressive disorder; Report Immunity to Registry: Yes; Not Available [facility] 4 06:58:58 Seasonal allergy 491208111 Active 2012 Seasonal allergy; snomeddesc ription: Seasonal allergy; Report Immunity to Registry: Yes; Notes: hx nasal congestion ; Not Available [facility] 4 06:58:58 Loss of appetite 36556658 Active 2012 Anorexia; snomeddesc ription: Loss of appetite; Report Immunity to Registry: Yes; Loss of appetite; snomeddesc ription: Loss of appetite; Report Immunity to Registry: Yes; Not Available [facility] 4 06:58:58 Seizure 91996934 Active 2000 Seizure; snomeddesc ription: Seizure; Report [...] Report Immunity to Registry: Yes; Not Available [facility] 4 06:58:58 Problem Notes None recorded. Medical Equipment None Reported. Allergies Allergen ID Allergen Name Allergen Category Reaction Reaction Severity Criticality Documentation Date Start Date Code Code System Note Provider Name and Address Organization Details Recorded Time 714 Reglan medicatio n Not available Not available Not available 10/31/20232012 9230 RxNorm Comme nt: adver se_ev ent_t ype: 03337 8002; ; Not Available [facility] 4 06:50:47 715 Motrin medicatio n Not available Not available Not available 10/31/2023201248 8 RxNorm Comme nt: adver se_ev ent_t ype: 03173 8002; ; Not Available [facility] 4 06:50:47 716 doxycycli ne Not available Not available Not available Not available 10/31/20232017 3640 RxNorm Comme nt: adver se_ev ent_t ype: 74645 8002; ; Not Available [facility] 4 06:50:47 Medications Name Sig Start [...] qd; VACCINE_ IND: no; SU_FULL_ NAME: Cheryl Martorel l; Not Available Not Available Not Available pilocarpi [...] HORAS CUANDO SEA NECESARI O PARA EL DOLOR-CT LD POR 10 D active Not Available [...] Available Liquid Nutrition oral 0 Quantity : 50638; Duration : 30; 0 refill(s ) 09/30 [...] yordy; Not Available Not Available Not Available Combigan [...] Not Available Not Available Not Available Flulaval 5999-4493 45 mcg (15 mcg x 3)/0.5 mL [...] le, quadriva lent; SU_FULL_ NAME: Cheryl Taylorsusan yordy; VIS_DATE : 05:00:00 .0; Not Available [...] Pneumoco ccal conjugat e PCV20, polysacc haride PSQ951 conjugat e, adjuvant , PF; Not Available Not Available Not Available Vitals Date Recorded Heart rate Body temperature Body weight Systolic blood pressure Diastolic blood pressure Provider Name and Address Organization Details Last Updated DateTime 10/21/2024 98 /min 98.2 [degF] 75671.2 6 g 118 mm[Hg] 97 mm[Hg] Lexis PENDLETON 5 12:04:23 Date Recorded Body height Heart rate Respiratory rate Body mass index (BMI) Body weight Systolic blood pressure Diastolic blood pressure Provider Name and Address Organization Details Last Updated DateTime 5 162.56 cm 81 /min 20 /min 24.9 kg/m2 81744.8 9 g 136 mm[Hg] 89 mm[Hg] Cheryl Street MD [address] [place], [address], [address] MD [facility] 5 15:01:34 Date Recorded Heart rate Body mass index (BMI) Body weight Respiratory rate Systolic blood pressure Diastolic blood pressure Provider Name and Address Organization Details Last Updated DateTime 5 92 /min 26.1 kg/m2 40998.0 4 g 16 /min 108 mm[Hg] 83 mm[Hg] Cheryl Street MD [address] [place], [address], [address] MD [facility] 5 16:33:39 Date Recorded Body height Provider Name an d Address Organization Details Last Updated DateTime 12/30/2024 162.56 cm Jany Delvalle [address] MD [facility] 12/30/2024 15:08:38 Date Recorded Body height Heart rate Respiratory rate Body temperature Body mass index (BMI) Body weight Systolic blood pressure Diastolic blood pressure Provider Name and Address Organization Details Last Updated DateTime 4 162.56 cm 89 /min 16 /min 98 [degF] 20.6 kg/m2 25307.0 8 g 123 mm[Hg] 90 mm[Hg] Jerome STRE[address] MD [facility] 4 14:28:38 Date Recorded Body temperature Body mass index (BMI) Body weight Respiratory rate Heart rate Systolic blood pressure Diastolic blood pressure Provider Name and Address Organization Details Last Updated DateTime 4 98.7 [degF] 20.6 kg/m2 58992.0 8 g 20 /min 87 /min 120 mm[Hg] 80 mm[Hg] Cheryl Street MD [address] [facility], [place], [address], [address] MD [facility] 4 15:46:02 Date Recorded Body height Provider Name an d Address Organization Details Last Updated DateTime 07/15/[address] MD [facility] 07/15/2024 15:22:29 Social History None recorded. Functional [...] Time Meningococcal MCV4O 9 completed Not Available [facility] 10/31/2023 06:54:49 zoster live 9 completed Not Available [facility] 10/31/2023 06:54:50 Influenza, split virus, quadrivalent, preservative 9 completed Not Available [facility] 10/31/2023 06:54:50 Influenza, split virus, quadrivalent, preservative 8 completed Not Available [facility] 10/31/2023 06:54:50 Influenza, split virus, quadrivalent, preservative 0 completed Not Available [facility] 10/31/2023 06:54:50 Past Encounters Encounter ID Performer Location Encounter Start Date Encounter Closed Date Diagnosis/Indication Diagnosis SNOMED-CT Code Diagnosis ICD10 Code Diagnosis Note [address] MD Main Office [address] [place] [address] 05/25/2023 09:48:40 06/27/2023 09:16:16 Human immunodeficiency virus infection 43549216 B20 HIV. Continue Biktarvy 1 tab po [...] /Tivicay.. safe sex. plan of care reviewed [address] MD Main Office [address] [place] [address] 08/24/2023 09:33:00 08/24/2023 10:46:09 Human immunodeficiency virus infection 01369268 B20 HIV. Continue Biktarvy 1 tab po [...] /Tivicay.s afe sex.labs Septemberlan of care reviewed [address] MD Main Office [address] [place] [address] 11/12/2023 11:34:42 11/16/2023 15:00:47 Human immunodeficiency virus infection 64185851 B20 HIV.Contin ue Biktarvy 1 tab po qd.U=Upt aware of PreP availabili ty.condom use.plan of care reviewed Adult heal th examination 600303490 Z00.[address] MD Main Office [address] [place] [address] 11/21/2023 10:59:43 11/23/2023 14:55:[address] MD Main Office [address] [place] [address] 01/14/2024 09:27:39 01/16/2024 13:51:[address] MD Main Office [address] [place] [address] 01/16/2024 10:24:39 01/16/2024 11:50:10 Human immunodeficiency virus infection 54308294 B20 HIV.Contin ue Biktarvy 1 tab po qd.U=Upt aware of PreP availabili ty.condom use.labs todayplan of care reviewed Candidiasis of mouth 797 19962 B37.0 nystatin 5cc po qid x 14 days. swish and spit.call with any side effects.ba cterial/fu ngal swab obtained. 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 [address] MD Main Office [address] [place] [address] 02/14/2024 12:00:04 02/14/2024 12:24:19 Human immunodeficiency virus infection 00097198 B20 HIV.Contin ue Biktarvy 1 tab po qd.U=Upt aware of PreP availabili ty.DoxyPEP reviewedco ndom use.labs todayplan of care reviewed Methicilli n resistant Staphylococcus aureus infection 343809373 A49.02 swab culture 01/2024 Candidiasi s of the esophagus 94215499 B37.81 sandy glabratafl uconazole 100mg po qd x 14 dayscall with any side effects. Weight loss 64893616 R63 .4 contributi ng factor sandy, MRSA, HIV among othermight benefit from Serostim.w ill review with himG tube [address] MD Main Office [address] [place] [address] 02/21/2024 11:08:05 02/21/2024 12:09:56 Human immunodeficiency virus infection 91997989 B20 HIV.Contin ue Biktarvy 1 tab po qd.complia nce reviewedU= Upt aware of PreP availabili ty.DoxyPEP reviewedco ndom use.labs todayplan of care reviewed Candidiasi s of the esophagus 94405148 B37.81 sandy glabratato complete fluconazol e 100mg po bid x 14 days: (10mg/ml) 10ml by G tube bidcall with any side effects. Methicilli n resistant Staphylococcus aureus infection 587424591 A49.02 swab culture 4curr ently on Bactrim oral suspension (200mg- 40mg/5ml) since 02/15-20ml q 12 hrs G tube x 10 days Cachexia a ssociated with AIDS 674714836 B20 R64 weight loss. frail. progressin g.contribu ting factor sandy, MRSA, HIV among other. G tubeSerost im 6mg sq qd will be prescribed with the goal of helping w weight gain, increase muscle mass gain, and increase enduranceh e has visiting nurse who could assist with daily injections . [address] MD Main Office [address] [place] [address] 02/25/2024 10:24:53 02/25/2024 11:09:27 Human immunodeficiency virus infection 29983598 B20 HIV.Contin ue Biktarvy 1 tab po qd.complia nce reviewedU= Ucondom use.labs todayplan of care reviewed Candidiasi s of the esophagus 11396845 B37.81 sandy glabratawi ll continue fluconazol e 200 mg po qd x 14 days: (10mg/ml) 10ml by G tube QD;will on next appointmen t for further tx va suppressio n tx.call with any side effects. Cachexia a ssociated with AIDS 262561199 B20 R64 weight loss. frail. progressin g.approved Serostim 6mg sq qd; awaiting delivery to the office. will be prescribed with the goal of helping w weight gain, increase muscle mass gain, and increase enduranceh e has visiting nurse who could assist with daily injections .ensure tidmegace 625 mg qd. Methicilli n resistant Staphylococcus aureus infection 751970794 A49.02 swab culture 01/2024will complete 10 days of Bactrim oral suspension (200mg- 40mg/5ml) since 02/15-20ml q 12 hrs G tube on 02/27/[address] MD Main Office [address] [place] [address] 03/14/2024 10:24:00 03/14/2024 10:29:25 Cachexia associated with AIDS 000867447 R64 B20 gained 2 pounds. probably improved sandy esophagiti s 2nd to inhaled steroids.S Tart Serostim 6mg s/c qd abdomen. first dose administer ed today. Tolerated well; goalis to increase weight, endurance and muscle massHe will have [employer] and nurse help with daily injections .potential side effects reviewed.t o call with any concernshe will warehouse picker Megace today, and start it as well(G tube) qd to increase apetitte Human immunodeficiency virus infection 00574463 B20 HIV.Contin ue Biktarvy 1 tab po qd.complia nce reviewed Candidiasi s of the esophagus 7.81 sandy glabratawi ll continue 2 more weeks of fluconazol e 200 mg po qd x 14 days: (10mg/ml) 10ml by G tube QD;might benefit from qw suppressio n tx.call with any side effects. [address] MD Main Office [address] [place] [address] 04/18/2024 09:52:00 04/18/2024 11:19:01 Cachexia associated with AIDS 237043071 R64 B20 124 lbs. gained weightcont inue Serostim 6mg s/c qd abdomen. goalis to increase weight, endurance and muscle masscontin ue Megace G tube qdCNA and nurse helping with compliance and tx.potenti al side effects reviewed.t o call with any concerns Human immunodeficiency virus infection 47373139 B20 HIV.Contin ue Biktarvy 1 tab po qd.padmini hoffman reviewedla bs today Candidiasi s of the esophagus .81 sandy glabratawi ll continue fluconazol e 200 (10ml) mg G tube qw for suppressio n tx.call with any side effects. Aspiration pneumonia 422 079599 J69.0 get discharge summaryon antibiotic ;eat standing or sitting; and not [place] [address] MD Main Office [address] [place] [address] 05/20/2024 10:17:53 05/20/2024 12:44:49 Cachexia associated with AIDS 755256884 R64 B20 continue Serostim 6mg s/c qd abdomen. goal is to increase weight, endurance and muscle masscontin ue Megace G tube qd 5cc qdCNA and nurse helping with compliance and tx.potenti al side effects reviewed.t o call with any concerns Human immunodeficiency virus infection 74760282 B20 HIV.Contin ue Biktarvy 1 tab po qd.padmini hoffman reviewedla bs today Candidiasi s of the esophagus 58463356 B37.81 sandy glabrataho ld fluconazol e for nowSTART 1 tab po bid x 21 says for esophageal sandy glabrata.c all with any side effects. [address] MD Main Office [address] [facility] [place] [address] 06/18/2024 10:10:09 06/18/2024 11:12:33 Cachexia associated with AIDS 819111976 R64 B20 continue Serostim 6mg s/c qd abdomen. goal is to increase weight, endurance and muscle massCNA and nurse helping with compliance and tx.megace on holdpotent ial side effects reviewed.t o call with any concerns Human immunodeficiency virus infection 33163579 B20 HIV.Contin ue Biktarvy 1 tab po qd.complia nce reviewedla bs today Inflammato ry disease of liver 082878057 K75.9 Suspect 2nd to concomitan t medication s. ongoingdo not re-start fluconazol e nor megacenega tive infectious and non-infect ious workupto call or ER if jaundice, abd pain, n/v/d marce mendy History of calculus of kidney 290266216 Z87.442 u/s 05/[address] scan 02/2024hydr ation Aspiration pneumonia 422 846672 J69.0 s/p aspiration on CT AngioNPO per instructio n given to him in hospital; nutrition by G tubes/p (ceftriaxo ne,Azithro ,Flagyl while in Hospital;d ischarged on azithro and cefpodoxim e x 3 days which he completed. leg elevationa void sedating meds as much as possible Deep venou s thrombosis of lower extremity [id number] I82.409 left lower extremity doppler showed DVT of gastrocnem ius vein;on tx w w Eliquis bid . Pulmonary embolism [address] Angio was positive for Acute lobar PEs/p heparin; ongoing Eliquis bidmed list reviewed.n o drug use for years. not on maintenanc e tx.denies current ETOH use. [address] MD Main Office [address] [facility] [place] [address] 07/15/2024 15:10:10 07/15/2024 15:45:30 Cachexia associated with AIDS [id number] R64 B20 continue Serostim 6mg s/c qd abdomen. goal is to increase weight, endurance and muscle masspotent ial side effects reviewed.t o call with any concerns Human immunodeficiency virus infection 49163613 B20 HIV.Contin ue Biktarvy 1 tab po qd.complia nce reviewedla bs Candidiasi s of the esophagus on clotrimazo le. swish and spit qd Medication monitoring [id number] MD Main Office [address] [place] [address] 10/21/2024 12:22:54 10/21/2024 16:48:51 Cachexia associated with AIDS [id number] R64 B20 improvedco ntinue Serostim 6mg s/c qd abdomen. goal is to increase weight, endurance and muscle masspotent ial side effects reviewed.m ay start decreasing dose in 1-2 months if further weight gainon Boost protein shakesto call with any concerns Human immunodeficiency virus infection [id number] B20 HIV.Contin ue Biktarvy 1 tab po qd.complia nce reviewedla bs Candidiasi s of the esophagus on clotrimazo le. swish and spit qd/BID PRN [address] MD Main Office [address] [place] [address] 11/25/2024 11:48:55 11/25/2024 14:20:54 Cachexia associated with AIDS [id number] R64 B20 improvedco ntinue Serostim 6mg s/c [...] with any concerns Human immunodeficiency virus infection 84652437 B20 HIV.Contin ue Biktarvy 1 tab po qd.complia nce reviewedla bs Candidiasi s of the esophagus 81 off/on; recurrento n clotrimazo le. swish and spit qd/BID PRN for suppressio n Insomnia [id number] G47.0 0 benadryl capsules requested by patient forinsomni a and itchiness as needed.cor rect use reviewed. [address] MD Main Office [address] [place] [address] [place], [place] [address] 12/30/2024 15:04:38 12/31/2024 09:52:40 Cachexia associated with AIDS [id number] R64 B20 improvedco ntinue Serostim 6mg s/c [...] with any concerns Human immunodeficiency virus infection 58464585 B20 HIV.Contin ue Biktarvy 1 tab po qd.complia nce reviewedla bs Candidiasi s of the esophagus [id number] B37.81 off/on; recurrento n clotrimazo le. swish and spit /BID/TID PRN for suppressio n Health Concerns Section Related Observation LastModified by Organization Detai ls LastModified Time None Recorded Concern Status LastModified by Organization Details LastModified Time None Recorded Advance Directives Directive None Recorded Payers Insurance Date Sequence Insurance Name Policy Number Policy Perry Covered Member ID Perry Member ID Guarantor Name 02/02/2025 1 [facility] - DOS ON OR AFTER 2022 - MEDICARE ADVANTAGE [place] (MEDICARE REPLACEMENT/AD VANTAGE - PPO) Benjamin Fall [id number] [facility] Notes Date Note Type Note Provider Name and Address Organization Details Recorded Time 06/18/2024 text/html HIVOn Biktarvy 1 tab po qd.reports daily compliance. denies missing dose.resolved thrush. hx recurrence. fluconazole and voriconazole on hold. Pt reports was hospitalized at [facility] 06/10/24-06/13/24 ( got to ER [...] VL nondetetcted01/2024 HIV VL nondetcetd;eGFR=76;AST /ALT wnl;11/2023 NT9=486; HIV VLnondetceted; no infections.01/2022 VJ3=853; HIV VL nondetceted; eGFR>60; ALt/AST wnl; syphilis neg; GC/chlamydia neg Cheryl Street MD [address] [place] [address], [phone], [facility] [address] MD [facility] 06/18/2024 18:19:56 07/15/2024 text/html HIVOn Biktarvy 1 tab po qd.reports daily compliance. denies missing dose.thrush on/off: recurrence. on clotrimazole daily .stable weight 120lbshe says he is eating more and apetitte has improvedfeels strongergetting serostim dailyno hospitalizations since he was last seenmed list reviewed.On Eliquis and enoxaparin. recent PE/DVT.VL nondetected03/2024 HIV VL nondetctedHIV VL nondetetcted01/2024 HIV VL nondetcetd;eGFR=76;AST /ALT wnl;11/2023 MP3=379; HIV VLnondetceted; no infections. Cheryl Street MD [address] [place] [address], [phone], [facility] [address] MD [facility] 07/15/2024 15:47:48 10/21/2024 text/html HIVOn Biktarvy 1 [...] notify site start date and confirm medication. TOLL PATROLMAN in room with his consent. Cheryl Street MD [address] [place] [address], [phone], [facility] [address] MD [facility] 10/21/2024 14:34:28 11/25/2024 text/html HIVOn Biktarvy 1 [...] cyst removal in recent weeks. outpatient/day procedure. TOLL PATROLMAN in room with his consent. 07/2025 HIV VL nondetceted; ALt/AST wnl; eGFR>60; FU3=[address] MD [address] [place] [address], [phone], [place] [address] MD [facility] 11/26/2024 15:09:42 12/30/2024 text/html HIVOn Biktarvy 1 tab po qd.reports daily compliance. denies missing dose.thrush. gets on/off and using clotrimazole to treat/suppress.gaining weight: 120lbs ---145lbs --152 lbsno aspirationgetting serostim daily for cachexia,no side effects.might get G tube removed in February 2025.no hospitalizations since he was last seenmed list reviewed. TOLL PATROLMAN on [place] [facility]. came in today with a a friendVL nondetceted;07/2025 HIV VL nondetceted; ALt/AST wnl; eGFR>60; RT1=[address] MD [address] [place] [address], [phone], [place] [address] MD [facility] 12/30/2024 16:39:33
== END 2025-03-02 09:38 | disposition home or self-care (01) ==
LOC: HO.US 09:37
PROVIDERS: PCP Student in an Organized Health Care Education/Training Program; Visit Provider Nurse Practitioner Family
DX: R39.9 Unspecified symptoms and signs involving the genitourinary system (principal); R39.14 Feeling of incomplete bladder emptying; N39.43 Post-void dribbling
CPT/HCPCS: 76770

== ENCOUNTER → 2025-03-02 09:41 | Outpatient (BNV) | payer OTHER, SELFPAY | PROVIDERS: PCP Student in an Organized Health Care Education/Training Program; Visit Provider Radiology Diagnostic Radiology | DX: N20.0 Calculus of kidney (principal); R39.9 Unspecified symptoms and signs involving the genitourinary system | CPT/HCPCS: 76770 ==

== ENCOUNTER 2025-03-11 09:38 | Outpatient (REF) | payer OTHER, SELFPAY ==
--- OUTSIDE RECORDS SUMMARY | 2025-03-11 10:01 | XMS_ITS | Continuity of Care Document ---
Author Organization LYNN WHITE MD [facility], Main Office Address [address] [place] [address] Assessment No assessment recorded. Plan of Treatment Reminders Order Date Submit Date Provider Last Modified By Organization Details Last Modified Time Details Appointments RESEARCH FOLLOW UP 2024 11:30P Wilmer Street MD Not available Not available Not available Lab HPV DNA, high-ris k, anal [address], [address] [place] [address], [id number], 03/09/2025 16:00:58 pap, LB, anal [address], [address] [place] [address], [id number], 03/09/2025 16:01:16 chlamydi a + gonorrhe a DNA panel, unspecif ied specimen [address], [address] [place] [address], [id number], 03/09/2025 16:00:03 culture, throat [address], [address] [place] [address], [id number], 03/09/2025 16:02:43 Referral None recorded . Procedures None recorded . Surgeries None recorded . Imaging None recorded . Medication Orders clotrima zole 10 mg klaudia 2024 025 [id number], [address] [place], [id number], 03/09/2025 10:06:11 fluconaz ole 100 mg tablet 2024 025 [id number], [address] [place], [id number], 03/09/2025 10:06:10 Biktarvy 50 mg-200 mg-25 mg tablet 2024 025 [id number], [address] [place], [id number], 03/09/2025 13:04:37 Patient TargetsNo targets recorded. Patient InstructionsNo instructions recorded. Reason for Referral None Reported. Problems Name Problem SNOMED Code Status Onset Date Resolution Date Notes Provider Name and Address Organization Details Recorded Time Asthma 292538675 Active 2006 Asthma; snomeddesc ription: Asthma; Report Immunity to Registry: Yes; Asthma; Report Immunity to Registry: Yes; ReasonDate : 10/13/2019 ; ; Start Date : 10/13/2019 Asthma; snomeddesc ription: Asthma; Report Immunity to Registry: Yes; Not Available [facility] 4 06:58:53 Male hypogonad ism 76963919 Active 2012 Male hypogonadi sm; snomeddesc ription: Male hypogonadi sm; Report Immunity to Registry: Yes; Not Available [facility] 4 06:58:53 Diarrhea 87717604 Active 2006 Diarrhea; snomeddesc ription: Diarrhea; Report Immunity to Registry: Yes; Diarrhea, unspecifie d; snomeddesc ription: Diarrhea; Report Immunity to Registry: Yes; Not Available [facility] 4 06:58:53 Substance abuse 32894450 Active 2006 Substance abuse; snomeddesc ription: Substance abuse; Report Immunity to Registry: Yes; Notes: opiate/suad jolene/benzo ; Not Available [facility] 4 06:58:53 Human immunodef iciency virus infection 16224891 Active 1991 Human immunodefi ciency virus [HIV] disease; snomeddesc ription: Human immunodefi ciency virus infection; Report Immunity to Registry: Yes; Human immunodefi ciency virus infection; snomeddesc ription: Human immunodefi ciency virus infection; Report Immunity to Registry: Yes; Not Available [facility] 4 06:58:53 Steatotic liver disease 947591348 Active 2006 Steatosis of liver; snomeddesc ription: Steatosis of liver; Report Immunity to Registry: Yes; Notes: u/s 2021; Fatty (change of) liver, not elsewhere classified ; snomeddesc ription: Steatosis of liver; Report Immunity to Registry: Yes; Notes: u/s 2021; Not Available [facility] 4 06:58:53 Herpesvir us infection 31234774 Active 2009 Herpesvira l infection, unspecifie d; snomeddesc ription: Herpes simplex; Report Immunity to Registry: Yes; Notes: HSV 1 pos serology; HSV 2 neg serology; Not Available [facility] 4 06:58:53 Fibromyos itis 05782980 Active 2006 Myalgia and myositis, unspecifie d; snomeddesc ription: Fibromyalg ia; Report Immunity to Registry: Yes; Notes: Chronic pain multiple/c hronic back pain; Not Available [facility] 4 06:58:53 Herpes simplex 49274489 Active 2009 Herpes simplex; snomeddesc ription: Herpes simplex; Report Immunity to Registry: Yes; Notes: HSV 1 pos serology; HSV 2 neg serology; Not Available [facility] 4 06:58:54 Kidney stone 61677993 Active 2001 Calculus of kidney; snomeddesc ription: Kidney stone; Report Immunity to Registry: Yes; Kidney stone; snomeddesc ription: Kidney stone; Report Immunity to Registry: Yes; Not Available [facility] 4 06:58:54 History of calculus of kidney 278137297 Active 2001 History of calculus of kidney; snomeddesc ription: History of calculus of kidney; Report Immunity to Registry: Yes; Not Available [facility] 4 06:58:54 Type B viral hepatitis 82607401 Active 2006 Type B viral hepatitis; snomeddesc ription: Type B viral hepatitis; Report Immunity to Registry: Yes; Notes: core ab pos; s ag neg; s ab neg HBV vL nondetecte d 2016; 2017; Not Available [facility] 4 06:58:54 Hyperplas ia of prostate 961713686 Active 2014 Hyperplasi a of prostate, unspecifie d, without urinary obstructio n and other lower urinary symptoms (LUTS); snomeddesc ription: Hyperplasi a of prostate; Report Immunity to Registry: Yes; Hyperplas ia of prostate; snomeddesc ription: Hyperplasi a of prostate; Report Immunity to Registry: Yes; Not Available [facility] 4 06:58:54 Anxiety 82058790 Active 1996 Anxiety; snomeddesc ription: Anxiety; Report Immunity to Registry: Yes; Not Available [facility] 4 06:58:54 Testicula r hypofunct ion 945317726 Active 2012 Other testicular hypofuncti on; snomeddesc ription: Male hypogonadi sm; Report Immunity to Registry: Yes; Not Available [facility] 4 06:58:54 Seasonal allergic rhinitis 498416143 Active 2012 Other seasonal allergic rhinitis; snomeddesc ription: Seasonal allergy; Report Immunity to Registry: Yes; Notes: hx nasal congestion ; Not Available [facility] 4 06:58:54 Onychomyc osis due to dermatoph yte 948177628 Active 2017 Tinea unguium; snomeddesc ription: Onychomyco sis; Report Immunity to Registry: Yes; Notes: feet digits; Not Available [facility] 4 06:58:55 Sleep apnea 58388609 Active 1999 Sleep apnea; snomeddesc ription: Sleep apnea; Report Immunity to Registry: Yes; Unspecifi ed sleep apnea; snomeddesc ription: Sleep apnea; Report Immunity to Registry: Yes; Not Available [facility] 4 06:58:55 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 68818766 Active 2006 Other psychoacti ve substance abuse, uncomplica lucho; snomeddesc ription: Substance abuse; Report Immunity to Registry: Yes; Notes: opiate/suad jolene/benzo ; Not Available [facility] 4 06:58:55 Viral hepatitis B without hepatic coma 662077273 Active 2006 Unspecifie d viral hepatitis B without hepatic coma; snomeddesc ription: Type B viral hepatitis; Report Immunity to Registry: Yes; Notes: core ab pos; s ag neg; s ab neg HBV vL nondetecte d 2016; 2017; Not Available [facility] 4 06:58:55 Blood chemistry outside reference range 444192618 Active 2012 Other specified abnormal findings of blood chemistry; snomeddesc ription: Decreased testostero ne level; Report Immunity to Registry: Yes; Notes: hypogoandi sm; Not Available [facility] 4 06:58:55 Arthritis 0822953 Active 1998 Arthritis; snomeddesc ription: Arthritis; Report Immunity to Registry: Yes; Notes: Osteoatrth ris multiple; Not Available [facility] 4 06:58:55 History of urinary stone 202068379 Active 2001 Personal history of urinary calculi; snomeddesc ription: History of calculus of kidney; Report Immunity to Registry: Yes; Not Available [facility] 4 06:58:56 Fibromyal mika 788668141 Active 2006 Fibromyalg ia; snomeddesc ription: Fibromyalg ia; Report Immunity to Registry: Yes; Notes: Chronic pain multiple/c hronic back pain; Not Available [facility] 4 06:58:56 Lyme disease 04123579 Active 2017 Lyme disease; Report Immunity to Registry: Yes; Notes: tx cefuroxime x14 d (hx all Doxy); Not Available [facility] 4 06:58:56 Headache 19347928 Active 2008 Headache; snomeddesc ription: Headache; Report Immunity to Registry: Yes; Notes: migraine; Headache; snomeddesc ription: Headache; Report Immunity to Registry: Yes; Notes: migraine; Not Available [facility] 4 06:58:56 Hypertens marj disorder 75319327 Active 2017 Hypertensi ve disorder; snomeddesc ription: Hypertensi ve disorder; Report Immunity to Registry: Yes; Not Available [facility] 4 06:58:56 Arthropat hy 891789007 Active 1998 Arthropath y, unspecifie d, site unspecifie d; snomeddesc ription: Arthritis; Report Immunity to Registry: Yes; Notes: Osteoatrth ris multiple; Not Available [facility] 4 06:58:56 Essential hypertens ion 65536865 Active 2017 Essential (primary) hypertensi on; snomeddesc ription: Hypertensi ve disorder; Report Immunity to Registry: Yes; Not Available [facility] 4 06:58:57 Testoster one level below reference range 034162731 Active 2012 Decreased testostero ne level; snomeddesc ription: Decreased testostero ne level; Report Immunity to Registry: Yes; Notes: hypogoandi sm; Not Available [facility] 4 06:58:57 Insomnia 446078097 Active 1996 Insomnia; Report Immunity to Registry: Yes; Not Available [facility] 4 06:58:57 Anxiety state 019851002 Active 1996 Anxiety state, unspecifie d; snomeddesc ription: Anxiety; Report Immunity to Registry: Yes; Not Available [facility] 4 06:58:57 Onychomyc osis 900786919 Active 2017 Onychomyco sis; snomeddesc ription: Onychomyco sis; Report Immunity to Registry: Yes; Notes: feet digits; Not Available [facility] 4 06:58:57 Chronic hepatitis C 020368713 Active 2006 Chronic hepatitis C without mention [...] 12/2021 F2 ; Not Available [facility] 4 06:58:57 Depressiv e disorder 36960825 Active 1996 Depressive disorder, not elsewhere classified ; snomeddesc ription: Depressive disorder; Report Immunity to Registry: Yes; Depressiv e disorder; snomeddesc ription: Depressive disorder; Report Immunity to Registry: Yes; Not Available [facility] 4 06:58:58 Seasonal allergy 312762070 Active 2012 Seasonal allergy; snomeddesc ription: Seasonal allergy; Report Immunity to Registry: Yes; Notes: hx nasal congestion ; Not Available [facility] 4 06:58:58 Loss of appetite 36410654 Active 2012 Anorexia; snomeddesc ription: Loss of appetite; Report Immunity to Registry: Yes; Loss of appetite; snomeddesc ription: Loss of appetite; Report Immunity to Registry: Yes; Not Available [facility] 4 06:58:58 Seizure 81747427 Active 2000 Seizure; snomeddesc ription: Seizure; Report [...] to Registry: Yes; Not Available [facility] 4 06:58:58 Problem Notes None recorded. Medical Equipment None Reported. Allergies Allergen ID Allergen Name Allergen Category Reaction Reaction Severity Criticality Documentation Date Start Date Code Code System Note Provider Name and Address Organization Details Recorded Time 714 Reglan medicatio n Not available Not available Not available 10/31/20232012 9230 RxNorm Comme nt: adver se_ev ent_t ype: 06029 8002; ; Not Available [facility] 4 06:50:47 715 Motrin medicatio n Not available Not available Not available 10/31/20232012 48393 8 RxNorm Comme nt: adver se_ev ent_t ype: 15988 8002; ; Not Available [facility] 4 06:50:47 716 doxycycli ne Not available Not available Not available Not available 10/31/20232017 3640 RxNorm Comme nt: adver se_ev ent_t ype: 23062 8002; ; Not Available [facility] 4 06:50:47 Medications Name Sig Start [...] fluconazo le 100 mg tablet 100 mg 1 tab po qd x 21 days 2024 active Not Available Not Available Not Avai lable clotrimaz ole 10 mg klaudia Take 1 [...] %) solution for nebulizat ion INHALE 3 ML BY NEBULIZA TION ROUTE THREE TIMES EVERY DAY NEEDED FOR ASTHMA active [...] no; Not Available Not Available Not Available cetirizin e 10 mg tablet TOME 1 TABLETA POR V A ORAL TODOS LOS D active Not Available Not Available No t Available Pneumovax -23 25 mcg/0.5 mL injection [...] yordy; Not Available Not Available Not Available cefpodoxi [...] mg tablet TAKE 2 TABLETS BY MOUTH DAILY FOR 3 DAYS STARTING ON Sunday active Not Available Not Available No t [...] Not Available Not Available No t Available econazole nitrate 1 % topical cream APPLY TOPICALL Y ONCE PER DAY. TO APPLY IN TOENAILS DAILY active Not Available Not Available No [...] Not Available mirtazapi ne 30 mg tablet TOME DOS TABLETAS POR V A ORAL AL ACOSTARS E active Not Available Not [...] no; Not Available Not Available Not Available budesonid e 0.25 mg/2 mL suspensio n for nebulizat ion USE 1 VIAL VIA NEBULIZE R 2 TIMES A DAY FOR 90 DAYS active Not Available Not Available No t Available Banophen 25 mg capsule TOME BAHMAN O DOS CAPS POR VIA ORAL A DIARIO CUANDO SEA NECESARI O PARA LA PICAZON INSOMNIA active Not Available Not Available No [...] Available Liquid Nutrition oral 0 Quantity : 76012; Duration : 30; 0 refill(s ) 09/30 completed Duration : 30; VACCINE_ IND: no; Not Available Not Available Not Available monteluka st 10 mg tablet TOME 1 TABLETA POR V A ORAL TODOS LOS D active Not Available Not Available No t Available hydroxyzi ne HCl 25 mg tablet [...] cefuroxim e axetil 500 mg tablet TAKE ONE TABLET THIS EVENING AND THEN ONE TABLET TWICE A DAY FOR THE NEXT TWO DAYS. active Not Available Not Available No [...] 30; VACCINE_ IND: no; SU_FULL_ NAME: Cheryl Stacia [...] scales; Not Available Not Available Not Available dorzolami de 2 % eye drops PONGA BAHMAN GOTA EN LOS DOS OJOS DOS VECES AL D A active Not [...] bid; VACCINE_ IND: no; SU_FULL_ NAME: Cheryl Palomo l; Not Available Not Available Not Available cyclobenz [...] 2019 active VACCINE_ IND: yes; VACCINE_ NAME: derrick john, injectab le, quadriva lent; SU_FULL_ NAME: Cheryl scales; VIS_DATE : 14:37:48 .0; Not Available Not Available Not Available Prevnar 20 (PF) 0.5 mL intramusc ular syringe - Quantity : ; 0 refill(s ) 2022 active VACCINE_ IND: yes; VACCINE_ NAME: Pneumoco ccal conjugat e PCV20, polysacc haride [id number] conjugat e, adjuvant , PF; Not Available Not Available Not Available Vitals Date Recorded Body height Heart rate Respiratory rate Body temperature Body mass index (BMI) Body weight Systolic blood pressure Diastolic blood pressure Provider Name and Address Organization Details Last Updated DateTime 5 162.56 cm 103 /min 18 /min 98.4 [degF] 25.1 kg/m2 49467.4 9 g 110 mm[Hg] 80 mm[Hg] Aleksandra Harris [place] - [address] MD [facility] 5 11:09:16 Social History None recorded. Functional Status None [...] MCV4O 9 completed Not Available [facility] 10/31/2023 06:54:49 zoster live 9 completed Not Available [facility] 10/31/2023 06:54:50 Influenza, split virus, quadrivalent, preservative 9 completed Not Available [facility] 10/31/2023 06:54:50 Influenza, split virus, quadrivalent, preservative 8 completed Not Available [facility] 10/31/2023 06:54:50 Influenza, split virus, quadrivalent, preservative 0 completed Not Available [facility] 10/31/2023 06:54:50 Past Encounters Encounter ID Performer Location Encounter Start Date Encounter Closed Date Diagnosis/Indication Diagnosis SNOMED-CT Code Diagnosis ICD10 Code Diagnosis Note [address] MD Main Office [address] [place] [phone] 03/09/2025 09:16:22 03/09/2025 10:12:30 Cachexia associated with AIDS [id number] R64 B20 stable/imp roved.cont inue Serostim 6mg s/c qd abdomen. goal is to increase weight, endurance and muscle masspotent ial side effects reviewed.o n Boost protein shakescont inue megace; plan to stop in the next 2-3 monthsto call with any concerns Human immunodeficiency virus infection 52817626 B20 HIV.Contin ue Biktarvy 1 tab po qd.complia nce reviewedla bs Candidiasi s of the esophagus 28166273 B37.81 off/on; recurrento n clotrimazo le. swish and spit /BID/TID PRN for suppressio nSTART Fluconazol e 100mg po qd x 21 days: esophageal sandy; then continue clotrimazo le for suppressio noral swab for sandy/ba cteria obtained Abnormal a nal Papanicolaou smear 304168367 R85.619 Anal PAP sample obtained/p reformed: no abnormalit yGC/chlamy jean carlos rectal done Health Concerns Section Related Observation LastModified by Organization Detai ls LastModified Time None Recorded Concern Status LastModified by Organization Details LastModified Time None Recorded Payers Encounter Date Sequence Insurance Name Policy Number Policy Perry Covered Member ID Perry Member ID Guarantor Name 03/09/2025 1 [facility] - DOS ON OR AFTER 2022 - MEDICARE ADVANTAGE [place] (MED[place]ARE REPLACEMENT/AD VANTAGE - PPO) Benjamin Fall [id number] Benjamin Fall Notes Date Note Type Note Provider Name and Address Organization Details Recorded Time 03/09/2025 text/html HIVOn Biktarvy 1 tab po qd.reports daily compliance. denies missing dose.thrush ongoing. has flareup today.gets on/off and using clotrimazole to treat/suppress.get ting serostim daily for cachexia, helpingno side effects.might get G tube removed in February 2025.med list reviewed. will get anal pap VL nondetceted; 024 HIV Vl=24; AST =28 ALT 109; eGFR=90;07/2025 HIV VL nondetceted; ALt/AST wnl; eGFR>60; AW3=[address] MD [address] [place] [address], [phone], [facility] - [address] [facility] 03/09/2025 13:13:07
--- OUTSIDE RECORDS SUMMARY | 2025-03-11 10:02 | XMS_ITS | Clinical Summary ---
Author Organization [facility] Address [address] [place] [address] Care Team Providers Care Insurance Coordinator Name Role Phone Zora Arce PA-C Primary [...] as needed for itching. 30 Cap 6 Active aspirin 81 mg EC tabletIndications:H IV (human immunodeficiency virus infection) ([facility]) Take 1 Tab by mouth once daily. 30 Tab 6 015 Active naproxen (NAPROSYN) 500 mg tablet Take 1 Tab by mouth 2 (two) times daily. For back pain 50 Tab 2 Active diphenhydrAMINE-zin c acetate (BENADRYL) 1-0.1 % [...] NUTRITION) liquidIndications:H IV (human immunodeficiency virus infection) ([facility]) Take 1 Can by mouth 3 (three) times daily with meals. Ensure. Increased metab rate due to chronic infection. Use 3 times a day 1 can 90 Can 11 Active oxyCODONE-acetamino phen (PERCOCET) 5-325 mg per [...] 0.65 % nasal sprayIndications:As thma, intermittent, uncomplicated ([facility]) Place 1 Lee into the nostril(s) as needed for congestion. 60 mL 6 016 Active omeprazole (PRILOSEC) [address] capsuleIndications: Dyspepsia Take 1 Cap by mouth every morning before breakfast. Do not crush or chew. 30 Cap 3 016 Active albuterol sulfate hfa (PROAIR HFA) 90 mcg/actuation inhalerIndications: Asthma, intermittent, uncomplicated ([facility]) Inhale 2 Puffs into the lungs every 4 (four) hours as needed for shortness of breath. Int asthma 18 g 6 016 Active Active Problems Problem Noted Date Diagnosed Date Asthma, mild intermittent ([facility]) 05/06/2015 Fibromyalgia 01/27/2015 Generalized anxiety disorder 01/27/2015 Seizure disorder ([facility]) 01/27/2015 Major depressive disorder, r ecurrent, severe without psychotic features ([facility]) 01/27/2015 Overview (01/27/2015): Has therapist at [facility] HIV (human immunodeficiency virus infection) ([facility]) 01/27/2015 Chronic back pain 01/27/2015 Hepatitis C [...] 70 03/07/2016 1:51 PM EDT Temperature 36.4 C (97.6 F) 03/07/2016 1:51 PM EDT Respiratory Rate 18 03/07/2016 1:51 PM EDT Oxygen Saturation - - Inhaled Oxygen Concentration - - Weight 58.3 kg (128 lb 9.6 oz) 11/30/2015 2:46 P M EDT Height 167.6 cm (5' 6 ) 10/27/2015 2:39 PM EST Body Mass Index 20.76 10/27/2015 2:39 PM EST Plan of Treatment Not on file [place] Subscriber Plan / Payer ( fective 2015-Present) Name:Benjamin Fall Relation to Subscriber:Self Name:Benjamin Fall Payer ID:[id number] Group ID:Not on file Type:Medicaid Address: [address] DENTAL Care Teams Insurance Coordinator Relationship Specialty Start Date End Date Zora Arce PA-C [address] [place] [address] PCP - General 11/05/18
--- OUTSIDE RECORDS SUMMARY | 2025-03-11 10:02 | XMS_ITS | Clinical Summary ---
Author Organization 175 [facility] Address [address] [place] [address] Phone Care Team Providers Care Health Insurance Agent Name Role Phone Physician, Pcp Unknown Primary Care Provider Bina vailable Encounters Date Type Department Care Team Description 03/10/[address] [facility] Lab [address] [place] [address] MD Unspecified abnormal cytological findings in specimens from anus 03/09/[address] [facility] Lab [address] [place] [address] MD Candidal esophagitis ([facility] V24, [facility] V28) from Last 3 Months Surgical History Surgery Date Site/Laterality Comments EYE SURGERY Left PROCEDURE: HISTORICAL EYE SURGERY OTHER SURGICAL HISTORY PROCEDURE: ---- OTHER ----; COMMENT: hemorrhoids Medical History Medical History Date Comments Seizures ([facility] V24, [facility] V28) 06/29/2016 DX:Seizures ([facility]); COMMENT: F/u with neuro at [place] Dr Costello HIV (human immunodeficiency virus infection) ([facility] V24, [facility] V28) 06/29/2016 DX:HIV (human im munodeficiency virus infection) ([facility]); COMMENT: HIV dx in 1991, f/u Dr. Street Depression 06/29/2016 DX:Depression Anxiety 06/29/2016 DX:Anxiety; COMM ENT: F/u [facility] Counseling Chronic back pain 06/29/2016 DX:Chronic nena k pain Asthma 08/15/2016 DX:Asthma External hemorrhoids 11/08/2016 DX:External hemorrhoids Family History Medical History Relation Name Comments Diabetes Father Diabetes Mother Lung cancer Mother Relation Name Status Comments Brother 1 Alive Brother 2 Alive Father (Age 99) Mother Sister Alive Social History Tobacco Use Types Packs/Day Years Used Date Smoking Tobacco: Never Alcohol Use Standard Drinks/Week Comments No 0 (1 standard drink = 0.6 oz pur e alcohol) Sex and Gender Information Value Date Recorded Sex Assigned at Not on file Legal Sex Male 7:55 AM EST Gender Identity Not on file Sexual Orientation Not on file Obstetrics History Plan of Treatment Upcoming Encounters Date Type Department Care Team ([facility] Contact Info) Description 05/05/2025 9:45 AM EDT Consult Orthopedic Surgery - [place] [address] [facility] [address] [place] [address] Kb Benitez, BERNABE 175 [facility] [address] [place] [address] Health Maintenance Due Date Last Done Comments Meningococcal ACWY Vaccine ( 1 - Risk 2-dose series) 1966 COVID-19 Vaccine (#1) 1969 MMR Vaccines (1 of 2 - Risk 2-dose series) 1982 DTaP,Tdap,and Td Vaccines (1 - Tdap) 1983 Hepatitis A Vaccines (1 of 2 - Risk 2-dose series) 1983 Pneumococcal Vaccine: 50+ Ye ars (1 of 2 - PCV) 1983 Pneumococcal Vaccine: Pediat rics (0 to 5 Years) and At-Risk Patients (6 to 64 Years) (1 of 2 - PCV) 1983 Zoster Vaccines (1 of 2) 1983 Cholesterol Screening (Lipid Panel) 08/13/2022 Colorectal Cancer Screening: Colonoscopy 08/13/2022 Depression Screening 08/13/2022 Hepatitis C Screening 08/13/2022 Medicare Annual Wellness Visit 08/13/2022 Social Influencers of Health Screening 08/13/2022 Hepatitis B Vaccines (1 of 3 - Risk 3-dose series) 2024 RSV Immunization Adult Patie nts (1 - Risk 60-74 years 1-dose series) 2024 Influenza Vaccine (#1) 2025 HIB Vaccines Aged Out No longer eligi ble based on patient's age to complete this topic HPV Vaccines Aged Out No longer eligi ble based on patient's age to complete this topic IPV Vaccines Aged Out No longer eligi ble based on patient's age to complete this topic Meningococcal B Vaccine Aged Out No l onger eligible based on patient's age to complete this topic RSV Immunization Patients Un carlito 20 months Aged Out No longer eligible b ased on patient's age to complete this topic Varicella Vaccines Aged Out No longer eligible based on patient's age to complete this topic Procedures Procedure Name Priority Date/Time Associated Diagnosis Comments CULTURE MISCELLANEOUS Routine 03/09/2025 12:00 AM EDT Candidal esophagitis ([facility] V24, [facility] V28) CHLAMYDIA TRACHOMATIS AND NEISSERIA GONORRHOEAE PCR Routine 03/09/2025 12:00 AM EDT Candidal esophagitis ([facility] V24, [facility] V28) from Last 3 Months Results * Chlamydia trachomatis and Neisseria gonorrhoeae molecular study (03/09/2025 12:00 AM EDT) Neisseria gonorrhoeae PCR Negative Negative LAB MOLECULAR DIAGNOSTICS METHOD 03/10/2025 8:49 AM EDT [facility] Chlamydia trachomatis PCR Negative Negative LAB MOLECULAR DIAGNOSTICS METHOD 03/10/2025 8:49 AM EDT [facility] Swab Rectum structure / Unknown 03/09/2025 03/09/2025 6:35 PM EDT us Fabiola Street MD LAB MICROBIOLOGY - GENERA L ORDERABLES Final Result [facility] [address] [place] [address], from Last 3 Months Insurance MEDICAID - [place] [employer] MEDICARE Member Subscriber Plan / Payer (Ef fective 2017-Present) Name:VICKIE GROVER Relation to Subscriber:Self Name:Vickie Fall Payer ID:[id number] Group ID:[id number] Type:Not on file Address: [address] [place] [address] Care Teams Health Insurance Agent Relationship Specialty Start Date End Date Physician, Pcp Unknown PCP - General 03/10/25
[2025-03-11 11:16] LABS: Prostate Specific Antigen 0.16 ng/mL (<0.05-4.0)
== END 2025-03-11 09:39 | disposition home or self-care (01) ==
LOC: HO.LAB 09:38
PROVIDERS: PCP Student in an Organized Health Care Education/Training Program; Visit Provider Nurse Practitioner Family
DX: Z12.5 Encounter for screening for malignant neoplasm of prostate (principal); N39.43 Post-void dribbling; R39.9 Unspecified symptoms and signs involving the genitourinary system; R39.14 Feeling of incomplete bladder emptying
CPT/HCPCS: 36415; 84153

== ENCOUNTER 2025-03-12 09:04 | Outpatient (AMB) | payer OTHER, SELFPAY ==
--- NOTE | 2025-03-12 09:09 | MHC.OFFVIS ---
Vital Signs 03/12/25 09:16 Height 5 ft 6 in Weight 141 lb BMI 22.8 Intake Visit Reasons: New prob-RT knee OA Intake Note: Kana 60 yr old nauruan speaking male presents today with his AIR SUPPORT OPERATIONS OPERATOR Gaby for his right knee O.A pain. States in the last 5 months his pain has increase, he has pain with walking, standing for prolong time and having his knee bent when sitting increases his pain. Patient reports walking up a flight of stairs is very painful. Denies braces, injcetion or P.T. Hx of IMN left tibia [place] [address] Beard. Thermometer Maker Name: Sammi QUIROZ/ANABELA Accompanied by: Gaby AIR SUPPORT OPERATIONS OPERATOR Allergies Seasonal Allergies Allergy (Intermediate, Verified 03/12/25 09:10) Eye Drainage codeine (From Tylenol-Codeine #3) Allergy (Mild, Verified 03/12/25 09:10) Rash levofloxacin (From Levaquin) Allergy (Mild, Verified 03/12/25 09:10) Rash metoclopramide (From Reglan) Allergy (Mild, Verified 03/12/25 09:10) Rash acetaminophen (Tylenol-Codeine #3) Allergy (Unknown, Verified 03/12/25 09:10) Rash Penicillins (PENICILLINS) Allergy (Unknown, Verified 03/12/25 09:10) Rash ibuprofen (From Motrin) Adverse Reaction (Unknown, Verified 03/12/25 09:10) Reflux HPI HPI New prob-RT knee OA: Details: 60-year-old gentleman presents to the office today for pain in the bilateral knee pain left greater than right. He has had discomfort for quite some time however over the last 5 months the pain has gotten significantly worse. Denies injury. Pain is worse with standing. [facility] Medical History Lower urinary tract symptoms Hypogonadism in male Low serum cortisol level Adrenal hyperplasia Osteoporosis Height loss HIV (human immunodeficiency virus infection) Asthma Dysphagia Adult failure to thrive Adult failure to thrive Multiple rib fractures History of empyema of pleura (01/05/23) Hypertension Closed fracture of leg Hepatitis C Kidney stones Pleuritic chest pain Pneumonia Substance abuse Hemorrhoids Depression HIV (human immunodeficiency virus infection) Asthma Surgical History H/O hemorrhoidectomy Family History Maternal Grandmother Lung cancer Maternal Aunt Lung cancer Mother Lung cancer Social History (Updated 03/12/25 @ 09:11 by GABRIELLA Velázquez) Household Members: Caregiver Household Members Other:: AIR SUPPORT OPERATIONS OPERATOR Housing: Apartment Do you presently have visiting nurse or other home services: Yes Alcohol intake: never Patient Tobacco Use Status: Former Tobacco user Tobacco use type: Cigarette e-Cigarette/Vaping Use: Never Used Second Hand Smoke Exposure: No Substance Use Type: Crack/Cocaine Advance Directives Date on File: 04/25/21 service: No Current occupational status: disabled Current occupation: [employer] hand Gender identity: Male Review of Systems Const All systems reviewed & are unremarkable except as noted in HPI and below Physical Exam Vital Signs: BMI result Body Mass Index 22.8 Const General: cooperative and no acute distress Orientation/consciousness: patient oriented x3 Resp Effort & Inspection: normal respiratory effort and able to speak in complete sentences Cardio Peripheral pulses: Peripheral pulses 2+ throughout Neuro General: patient oriented x3 Extrem Other: Bilateral knees normal to inspection. He has diffuse tenderness throughout the knee. Full passive range of motion with mild crepitus. Calf supple and nontender neurovascularly intact. Results Reviewed Results Reviewed: X-rays of the right knee obtained on 10/28/2024 are significant for mild to moderate arthritis Assessment & Plan Assessment & Plan (1) Arthritis of knee, right: Code(s): M17.11 - Unilateral primary osteoarthritis, right knee Category: Medical (2) Osteoarthritis of knees, bilateral: Code(s): M17.0 - Bilateral primary osteoarthritis of knee Category: Medical Plan We discussed options which include physical therapy and bilateral knee braces which she was fit for in the office today. He can also take apry-hwb-[id number] anti-inflammatories if necessary. If symptoms persist or worsen they can contact our office otherwise follow up as needed. Orders: Orders PT Evaluation and Treatment Today M17.0 - Bilateral primary osteoarthritis of knee Coding Level of Care Code Est Pt Level 3 (80373) Complex EM visit Add On G2211 Diagnoses Arthritis of knee, right M17.11 Osteoarthritis of knees, bilateral M17.0
[2025-03-12 09:16] VITALS: BMI 22.8
--- OUTSIDE RECORDS SUMMARY | 2025-03-12 09:20 | XMS_ITS | Clinical Summary ---
Author Organization [facility] Address [address] [place] [address] Care Team Providers Care Blast Furnace Blower Name Role Phone Zora Arce PA-C Primary Care Provider [phone] Source Comments PLEASE NOTE, if this patient [...] EC tabletIndications:H IV (human immunodeficiency virus infection) ([facility]) Take 1 Tab by mouth once [...] NUTRITION) liquidIndications:H IV (human immunodeficiency virus infection) ([facility]) Take 1 Can by [...] 0.65 % nasal sprayIndications:As thma, intermittent, uncomplicated ([facility]) Place 1 [place] into the nostril(s) as needed for congestion. 60 mL 6 016 Active omeprazole (PRILOSEC) [address] capsuleIndications: Dyspepsia Take 1 Cap by mouth every morning before breakfast. Do not crush or chew. 30 Cap 3 016 Active albuterol sulfate hfa (PROAIR HFA) 90 mcg/actuation inhalerIndications: Asthma, intermittent, uncomplicated ([facility]) Inhale 2 Puffs into the lungs every 4 (four) hours as needed for shortness of breath. Int asthma 18 g 6 016 Active Active Problems Problem Noted Date Diagnosed Date Asthma, mild intermittent ([facility]) 05/06/2015 Fibromyalgia 01/27/2015 Generalized anxiety disorder 01/27/2015 Seizure disorder ([facility]) 01/27/2015 Major depressive disorder, r ecurrent, severe without psychotic features ([facility]) 01/27/2015 Overview (01/27/2015): Has therapist at [facility] HIV (human immunodeficiency virus infection) ([facility]) 01/27/2015 Chronic back pain 01/27/2015 [...] Fall Relation to Subscriber:Self Name:Benjamin Fall Payer ID:[id number] Group ID:Not on file Type:Medicaid Address: [address] Care Teams Blast Furnace Blower Relationship Specialty Start Date End Date Zora Arce PA-C [address] [place] [address] PCP - General 11/05/18
--- OUTSIDE RECORDS SUMMARY | 2025-03-12 09:20 | XMS_ITS | Clinical Summary ---
Author Organization 175 [facility] Address [address] [place] [address] Phone Care Team Providers Care Fur Clipper Name Role Phone Physician, Pcp Unknown Primary Care Provider Bina vailable Encounters Date Type Department Care Team Description 03/10/2025 Lab Requisition [facility] Lab [address] [place] [address] MD Unspecified abnormal cytological findings in specimens from anus 03/09/2025 Lab Requisition [facility] Lab [address] [place] [address] MD Candidal esophagitis ([facility] V24, [facility] V28) from Last 3 Months Surgical History Surgery Date Site/Laterality Comments EYE SURGERY Left PROCEDURE: HISTORICAL EYE SURGERY OTHER SURGICAL HISTORY PROCEDURE: ---- OTHER ----; COMMENT: hemorrhoids Medical History Medical History Date Comments Seizures ([facility] V24, [facility] V28) 06/29/2016 DX:Seizures ([facility]); COMMENT: F/u with neuro at [place] Dr Costello HIV (human immunodeficiency virus infection) ([facility]24, [facility] V28) 06/29/2016 DX:HIV (human im munodeficiency virus infection) ([facility]); COMMENT: HIV dx in 1991, f/u Dr. Street Depression 06/29/2016 DX:Depression Anxiety 06/29/2016 DX:Anxiety; COMM ENT: F/u [facility] Counseling Chronic back pain 06/29/2016 DX:Chronic nena [...] Upcoming Encounters Date Type Department Care Team ([facility] Contact Info) Description 05/05/2025 9:45 AM EDT Consult Orthopedic Surgery - [place] [address] 175 [facility] [address] [place] [address] Kb Benitez, BERNABE 175 [facility] [address] [place] [address] Health Maintenance Due Date Last Done Comments [...] Routine 03/09/2025 12:00 AM EDT Candidal esophagitis ([facility] V24, [facility] V28) CHLAMYDIA TRACHOMATIS AND NEISSERIA GONORRHOEAE PCR Routine 03/09/2025 12:00 AM EDT Candidal esophagitis ([facility] V24, [facility] V28) from Last 3 Months Results * Chlamydia trachomatis and Neisseria gonorrhoeae molecular study (03/09/2025 12:00 AM EDT) Neisseria gonorrhoeae PCR Negative Negative LAB MOLECULAR DIAGNOSTICS METHOD 03/10/2025 8:49 AM EDT [facility] Chlamydia trachomatis PCR Negative Negative LAB MOLECULAR DIAGNOSTICS METHOD 03/10/2025 8:49 AM EDT [facility] Swab Rectum structure / Unknown 03/09/2025 03/09/2025 6:35 PM EDT us Fabiola [address] MD LAB MICROBIOLOGY - GENERA L ORDERABLES Final Result [facility] [address] [place] [address], from Last 3 Months Insurance MEDICAID - [place] [employer] MEDICARE Member Subscriber Plan / Payer (Ef fective 2017-Present) Name:VICKIE GROVER Relation to Subscriber:Self Name:Vickie Fall Payer ID:[id number] Group ID:[id number] Type:Not on file Address: [address] [place] [address] Care Teams Fur Clipper Relationship Specialty Start Date End Date Physician, Pcp Unknown PCP - General 03/10/25
== END 2025-03-12 09:59 | disposition home or self-care (01) ==
LOC: HO.HOS 09:04
PROVIDERS: PCP Student in an Organized Health Care Education/Training Program; Visit Provider Physician Assistant
DX: M17.11 Unilateral primary osteoarthritis, right knee (principal); M17.0 Bilateral primary osteoarthritis of knee
CPT/HCPCS: 99213; G2211

== ENCOUNTER → 2025-03-12 09:04 | Outpatient (BNVA) | payer OTHER, SELFPAY | PROVIDERS: PCP Student in an Organized Health Care Education/Training Program; Visit Provider Physician Assistant | DX: R39.14 Feeling of incomplete bladder emptying (principal); N39.43 Post-void dribbling; R39.9 Unspecified symptoms and signs involving the genitourinary system; M17.11 Unilateral primary osteoarthritis, right knee; M17.0 Bilateral primary osteoarthritis of knee | CPT/HCPCS: 51798; 81003; 99212 ==

== ENCOUNTER 2025-03-12 11:31 | Outpatient (AMB) | payer OTHER, SELFPAY ==
--- NOTE | 2025-03-12 11:38 | MHC.OFFVIS ---
Intake Visit Reasons: 3m/US/PSA/PVR Intake Note: Patient presents today for follow up on: incomplete bladder emptying,urinary dribbling, ultrasound and psa results Imaging Completed: 03/02/25 PSA: 0.16 Urology Medications: Tamsulosin PVR:0ml's Negative Notcher Required: No Accompanied by: SIEBEL DEVELOPER Allergies Seasonal Allergies Allergy (Intermediate, Verified 03/12/25 12:05) Eye Drainage codeine (From Tylenol-Codeine #3) Allergy (Mild, Verified 03/12/25 12:05) Rash levofloxacin (From Levaquin) Allergy (Mild, Verified 03/12/25 12:05) Rash metoclopramide (From Reglan) Allergy (Mild, Verified 03/12/25 12:05) Rash acetaminophen (Tylenol-Codeine #3) Allergy (Unknown, Verified 03/12/25 12:05) Rash Penicillins (PENICILLINS) Allergy (Unknown, Verified 03/12/25 12:05) Rash ibuprofen (From Motrin) Adverse Reaction (Unknown, Verified 03/12/25 12:05) Reflux Medication List - Last Reconciled 03/12/25 by KRISTY Mtz acetaminophen 650 mg PO Q6H PRN albuterol sulfate 90 mcg/actuation (Ventolin HFA) 2 puffs inhalation Q6H PRN ascorbic acid (vitamin C) 250 mg PO DAILY aedyguxcy-wfocuyvj-gsratzt ala 50-200-25 mg (Biktarvy) 1 tab PO DAILY brimonidine-timolol 0.2-0.5 % (Combigan) 1 drp ophthalmic (eye) BID budesonide 0.25 mg (2 mL) inhalation BID 90 days calcium carbonate-vitamin D3 600 mg-20 mcg (800 unit) 1 tab feeding tube BID@1200,1800 cefuroxime axetil 500 mg PO BID clonazepam 1 mg feeding tube DAILY clotrimazole 10 mg PO TID clotrimazole 10 mg mucous membrane 5XD diphenhydramine HCl (Banophen) 25 - 50 mg PO DAILY PRN ferrous gluconate 324 mg feeding tube BID gabapentin 600 mg PO TID glycopyrrolate 1 mg feeding tube BID megestrol 5 mL feeding tube DAILY mirtazapine 60 mg (2 x 30 mg) feeding tube BEDTIME netarsudil-latanoprost 0.02-0.005 % (Rocklatan) 1 drp ophthalmic (eye) BEDTIME omeprazole 10 mg feeding tube DAILY@0630 PRN pilocarpine HCl 5 mg PO TID risperidone 3 mg feeding tube BEDTIME romosozumab-aqqg (Evenity) 210 mg subcut QMONTH somatropin (Serostim) 6 mg subcut DAILY tamsulosin (Flomax) 0.4 mg PO BEDTIME 30 days tramadol 50 mg feeding tube BID PRN HPI Comments Details: Benjamin is a pleasant 60-year-old Luxembourger-speaking male patient of Dr.Ponce Keenan who was accompanied by his SIEBEL DEVELOPER worker at today's office visit. He has a past medical history of hypogonadism, adrenal hyperplasia, osteoporosis, dysphagia, failure to thrive, hypertension, hep C, nephrolithiasis, pneumonia, substance abuse, hemorrhoids, depression, HIV, and asthma. He presents to the office today for follow-up. Of note, patient was seen approximately 3 months ago as a new patient for ongoing lower urinary tract symptoms he had been experiencing at which time a retroperitoneal ultrasound and PSA were ordered for further assessment evaluation. These results were reviewed and communicated with the patient today. Retroperitoneal ultrasound 03/04 notes the kidneys are normal in echotexture bilaterally. No hydronephrosis noted bilaterally. Right nephrolithiasis measuring up to 4 mm. Left Nephrolithiasis measuring up to 5 mm. The urinary bladder is unremarkable. The prostate measures 11 mL. No significant postvoid residual. PSAs are as follows: PSA: 12/01 0.4, 04/03 0.2 During last office visit patient had been reporting issues with urinary dribbling as well as feelings of incomplete bladder emptying. He does continue to report episodes of urinary urgency and frequency. He reports feeling Flomax has not been helpful. He denies nocturia, hematuria, dysuria, foul smelling urine, changes to urinary stream, flank pain, fever, and or chills. In office urinalysis results reviewed with the patient today. PVR 0 mL. We discussed at length potential causes of lower urinary tract symptoms patient is experiencing as well as further treatment options and risks and benefits of these treatment options. We did discuss bladder triggers and irritants as patient does report to be drinking increased amounts of coffee daily. Information was provided regarding pelvic floor exercises during last office visit and again during today's office visit. Patient also following up with endocrinology we did discuss trial of low-dose Cialis for bladder stability as well as increase in borderline low testosterone. All questions were answered. He otherwise offers no other issues or concerns at this time. [facility] Medical History History of pulmonary embolism Lower urinary tract symptoms Hypogonadism in male Low serum cortisol level Adrenal hyperplasia Osteoporosis Height loss HIV (human immunodeficiency virus infection) Asthma Dysphagia Adult failure to thrive Adult failure to thrive Multiple rib fractures History of empyema of pleura (01/05/23) Hypertension Closed fracture of leg Hepatitis C Kidney stones Pleuritic chest pain Pneumonia Substance abuse Hemorrhoids Depression HIV (human immunodeficiency virus infection) Asthma Surgical History H/O hemorrhoidectomy Family History Maternal Grandmother Lung cancer Maternal Aunt Lung cancer Mother Lung cancer Social History Household Members: Caregiver Household Members Other:: SIEBEL DEVELOPER Housing: Apartment Do you presently have visiting nurse or other home services: Yes Alcohol intake: never Patient Tobacco Use Status: Former Tobacco user Tobacco use type: Cigarette e-Cigarette/Vaping Use: Never Used Second Hand Smoke Exposure: No Substance Use Type: Crack/Cocaine Advance Directives Date on File: 04/25/21 service: No Current occupational status: disabled Current occupation: [employer] hand Gender identity: Male Review of Systems Eyes Reports no additional complaints ENT Reports no additional complaints Card Reports as per HPI Resp Reports as per HPI GI Reports as per HPI Reports as per HPI Neuro Reports as per HPI Psych Reports as per HPI Julius/Lymph Reports as per HPI Aller/Immun Reports as per HPI Physical Exam Const General: cooperative, comfortable, no acute distress, well developed, alert and awake Orientation/consciousness: oriented to person HEENT Head: Yes normal to inspection Eyes General: appearance normal, both eyes and all related structures Neck Neck: Yes normal visual inspection Chest Chest palpation & inspection: normal inspection of the chest Resp Effort & Inspection: normal respiratory effort and able to speak in complete sentences Cardio Rate: regular rate GI Other: G-tube present General: Yes no CVA tenderness Back/Spine/Pelvis Back: no CVA tenderness Skin General skin exam: no rashes or lesions noted Neuro General: oriented to person Extrem General: Yes normal to inspection Psych Appearance: well kempt Speech and movement: Clear speech present Affect: Other affect and mood findings present (flat affect) Attitude: cooperative Insight: Fair insight present (Psych) Judgement: Fair judgement present (Psych) Office Procedures Post Void Residual Post Residual Void Post Void Residual (PVR): 0 40043-Guqc Void Residual by ultrasound Results AMB Urinalysis, Automated UA Leukoctes 0 Dorys/uL Last Edit by Wilmer Bell [facility] on 03/12/25 12:09 UA Nitrite [facility] on 03/12/25 12:09 UA Urobilinogen 0.2 mg/dL Last Edit by Wilmer Bell [facility] on 03/12/25 12:09 UA Protein 0 mg/dL Last Edit by [facility] Jen [facility] on 03/12/25 12:09 UA pH 7.0 [facility] on 03/12/25 12:09 UA Blood 0 Ralph/uL Last Edit by [facility] Jen [facility] on 03/12/25 12:09 UA Specific Horace 1.005 Last Edit by Wilmer Bell [facility] on 03/12/25 12:09 UA Ketone Last Edit [facility] on 03/12/25 12:09 UA Bilirubin 0 mg/dL Last Edit by [facility] Jen [facility] on 03/12/25 12:09 UA Glucose 0 mg/dL Last Edit [facility] on 03/12/25 12:09 Results Reviewed Results Reviewed: Laboratory Last Values Urine pH (Auto) 7.0 03/12/25 12:07 Specific Horace (Auto) 1.005 03/12/25 12:07 Urine Protein (Auto) 0 mg/dL 03/12/25 12:07 Glucose (UA)(Auto) 0 mg/dL 03/12/25 12:07 Urine Blood (Auto) 0 Ralph/uL 03/12/25 12:07 Urine Bilirubin (Auto) 0 mg/dL 03/12/25 12:07 Urine Urobilinogen (Auto) 0.2 mg/dL 03/12/25 12:07 Leukocyte Esterase (Auto) 0 Dorys/uL 03/12/25 12:07 Date of Service: 03/02/25 Procedure(s): US retroperitoneal comp Findings: The kidneys are normal in echotexture bilaterally. No hydronephrosis. Right nephrolithiasis measures up to 4 mm. Left nephrolithiasis measures up to 5 mm. The right kidney is normal in size, measuring 10.7cm in length. The left kidney is normal in size, measuring 11.2cm in length. The urinary bladder is unremarkable. Prevoid volume 376 mL. Postvoid volume 59.2 mL. Ureteral jets are visualized bilaterally. The prostate is normal in size, measuring 2.7 x 2.9 x 2.8cm, volume of 11.3 mL. Impression: Elevated postvoid residual volume may indicate urinary retention. No hydronephrosis. Bilateral nephrolithiasis. Assessment & Plan Assessment & Plan (1) Lower urinary tract symptoms: Code(s): R39.9 - Unspecified symptoms and signs involving the genitourinary system Category: Medical (2) Feeling of incomplete bladder emptying: Code(s): R39.14 - Feeling of incomplete bladder emptying Category: Medical (3) Urinary dribbling: Code(s): N39.43 - Post-void dribbling Category: Medical Plan In office urinalysis results reviewed with the patient today; as noted above. PVR 0 mL. We discussed potential causes lower urinary tract symptoms patient is experiencing. Recent retroperitoneal ultrasound results reviewed with the patient today; as noted above. Recent PSA results reviewed with the patient today; as noted above. Stop Flomax. Start Cialis 5 mg daily as discussed and prescribed We did discussed the importance of pelvic floor exercises to assist with urinary dribbling. We also discussed bladder triggers and irritants. Follow-up in 3 months with PVR; or sooner with any issues, concerns, and or questions. Orders: Orders AMB Post Void Residual by ultrasound Today N39.43 - Post-void dribbling AMB Urinalysis Automated Today Z13.9 - Encounter for screening, unspecified Medications: New tadalafil (Cialis) [id number] [facility] [id number] Member [id number] 5 mg PO DAILY 90 tabs 0RF 90 days Patient Instructions: The patient had an opportunity to ask questions regarding the treatment plan. All questions were answered. Physical exam, labs, and imaging were discussed and reviewed in detail. As well as risks, benefits, and discussion of treatment choices. No major barriers to understanding were identified. The patient expressed understanding and agreement with the above treatment plan. The patient was made aware they should contact our office by phone for worsening of their current condition, the appearance of new symptoms, or with any questions or concerns. Compliance is encouraged with any medications and follow up testing that is ordered. It is a privilege to be allowed the opportunity to participate in? your urological care.? Again, if you have any questions or concerns If you have any questions or concerns please do not hesitate to contact me. The office is [phone]. This note is constructed using voice recognition software. While every effort has been made to ensure accuracy used building materials yard worker errors may have been included. Yours sincerely, KRISTY Mtz Coding Level of Care Code Est Pt Level 4 (32451) Complex EM visit Add On G2211 Diagnoses Lower urinary tract symptoms R39.9 Feeling of incomplete bladder emptying R39.14 Urinary dribbling N39.43 CPT Codes Post Residual Void - PVR CPT Code: 21850-Hdzm Void Residual by ultrasound ([id number])
== END 2025-03-12 12:08 | disposition home or self-care (01) ==
LOC: HO.HUSH 11:31
PROVIDERS: PCP Student in an Organized Health Care Education/Training Program; Visit Provider Nurse Practitioner Family
DX: R39.9 Unspecified symptoms and signs involving the genitourinary system (principal); R39.14 Feeling of incomplete bladder emptying; N39.43 Post-void dribbling; Z13.9 Encounter for screening, unspecified
CPT/HCPCS: 99214; G2211

== ENCOUNTER 2025-03-17 10:43 | Outpatient (AMB) | payer OTHER, SELFPAY ==
--- NOTE | 2025-03-17 11:09 | AM.OFFVISNUR ---
Intake Visit Reasons: Evenity #6 Allergies Seasonal Allergies Allergy (Intermediate, Verified 03/12/25 12:05) Eye Drainage codeine (From Tylenol-Codeine #3) Allergy (Mild, Verified 03/12/25 12:05) Rash levofloxacin (From Levaquin) Allergy (Mild, Verified 03/12/25 12:05) Rash metoclopramide (From Reglan) Allergy (Mild, Verified 03/12/25 12:05) Rash acetaminophen (Tylenol-Codeine #3) Allergy (Unknown, Verified 03/12/25 12:05) Rash Penicillins (PENICILLINS) Allergy (Unknown, Verified 03/12/25 12:05) Rash ibuprofen (From Motrin) Adverse Reaction (Unknown, Verified 03/12/25 12:05) Reflux Office Meds romosozumab-aqqg 210 mg/2.34 mL(105 mg/1.17 mL x2)subcutaneous syringe Performing Provider: Ritu Scott MD Performing Location: [facility] Endocrinology Administered by: Na Croft RN on 03/17/25 11:09 Dose Route Admin Location Dispensed Lot Number Expiration Date ND Stock Blender 210 mg subcut bilateral upper arms 2.34 mL [id number] 06/09/27 31707-425-50 [employer] Total Dispensed Waste 2.34 mL 0 % Comments: Pt accompanied by PRODUCT SUPPORT REP who interpreted the visit. Twister In services declined. No adverse reactions reported from previous injection. Pt tolerated injection well. No further questions at this time. Assessment & Plan Assessment & Plan Orders: Orders AMB Romosozumab Injection Patient Supplied Today M81.0 - Age-related osteoporosis without current pathological fracture Coding
--- OUTSIDE RECORDS SUMMARY | 2025-03-17 11:45 | XMS_ITS | Data Portability ---
Demographics Address [address] [place] [address] Home Phone Mobile Phone Preferred Language es Marital Status Never Mandaeism Affiliation Unknown Race White Ethnic Group or Author Organization LYNN WHITE MD [facility], Main Office Address [address] [place] [address] Assessment No assessment recorded. Plan of Treatment Reminders Order Date Submit Date Provider Last Modified By Organization Details Last Modified Time Details Appointments RESEARCH FOLLOW UP 2024 11:30P Wilmer Levni MD Not available Not available Not available Lab HPV DNA, high-ris k, anal [address], [address] [place] [address], [address], 03/09/2025 16:00:58 pap, LB, anal [address], [address] [place] [address], [address], 03/09/2025 16:01:16 chlamydi a + gonorrhe a DNA panel, unspecif ied specimen [address], [address] [place] [address], [address], 03/09/2025 16:00:03 culture, throat [address], [address] [place] [address], [address], 03/09/2025 16:02:43 Referral None recorded . Procedures None recorded . Surgeries None recorded . Imaging electroc ardiogra m 2023 024 cmartorell Main Office, [address] [place] [address], [phone], 07/15/2024 15:47:38 Medication Orders clotrima zole 10 mg klaudia 2024 025 [facility], [address] [place], [address], 03/09/2025 10:06:11 fluconaz ole 100 mg tablet 2024 025 [facility], [address] [place] [address], [address], 03/09/2025 10:06:10 Biktarvy 50 mg-200 mg-25 mg tablet 2024 025 [facility] [address] [place] [address], [address], 03/09/2025 13:04:37 clotrima zole 10 mg klaudia 2024 025 [facility], [address] [place], [address], 12/30/2024 16:32:25 Biktarvy 50 mg-200 mg-25 mg tablet 2024 025 [facility], [address] [place] [address], [address], 12/30/2024 16:32:25 clotrima zole 10 mg klaudia 2024 025 [facility], [address] [place], [address], 11/25/2024 13:20:54 Benadryl 25 mg capsule 2024 025 [facility], [address] [place], [address], 11/25/2024 13:20:55 Biktarvy 50 mg-200 mg-25 mg tablet 2024 025 [facility], [address] [place], [address], 11/25/2024 13:20:54 clotrima zole 10 mg klaudia 2024 025 [facility], [address] [place], [address], 10/21/2024 14:29:45 Biktarvy 50 mg-200 mg-25 mg tablet 2024 025 [facility] [address] [place], [address], 10/21/2024 14:30:45 Patient TargetsNo targets recorded. Patient Instructions Encounter Date Encounter Id Patient Instructions Last Modified By Organization Details Last Modified Time 10/21/2024 [id number] Clotrimazole Oral Lozenge (CLOTRIMAZOLE LOZENGE - MUCOUS MEMBRANE (ORAL)) cmartorell Not available 10/21/2024 14:29:44 Reason for Referral None Reported. Results Created Date Observation Date Name Description Value Unit Range Abnormal Flag Note LastModifiedBy Organization Detail LastModifiedTime 03/09/2003/09/2025 CHLAM YDIA TRACH OMATI S AND NEISS ERIA GONOR RHOEA E MOLEC ULAR STUDY .note See Note Origi nal Order ing Provi carlito: DELGADO SCHAEFFER CHRISTOPHER [facility] - [address] [facility], [place] [address] Not Available [facility] [address] [place], [address], 03/10/2025 08:50:56 03/09/20 25 03/09/2025 CHLAM YDIA TRACH OMATI S AND NEISS ERIA GONOR RHOEA E MOLEC ULAR STUDY neisseria gonorrhoeae PCR Negati ve negati ve Not Available [facility] [address] [place], [address], 03/10/2025 08:50:56 03/09/20 25 03/09/2025 CHLAM YDIA TRACH OMATI S AND NEISS ERIA GONOR RHOEA E MOLEC ULAR STUDY chlamydia trachomatis PCR Negati ve negati ve Not Available [facility] [address] [place], [address], 03/10/2025 08:50:56 03/09/20 25 03/09/2025 CULTU RE MISCE LLANE OUS .note See Note Origi nal Order ing Provi carlito: DELGADO IA T MARTO CHRISTOPHER [facility] [address] [facility] [place] [address] Not Available [facility] [address] [place], [address], 03/10/2025 11:21:36 03/09/20 25 03/09/2025 CULTU RE MISCE LLANE OUS miscellaneou s culture YEAST abnormal Yeast Not Available [facility] [address] [place] [address], [address], 03/10/2025 11:21:36 03/09/20 25 03/09/2025 CULTU RE MISCE LLANE OUS .note See Note Origi nal Order ing Provi carlito: DELGADO CARRANZA T MARTO CHRISTOPHER [facility] - [address] [facility], [facility], [facility] [place] [address] Not Available [facility] [address] [place] [address], [address], 03/10/2025 11:26:38 03/09/20 25 03/09/2025 CULTU RE MISCE LLANE OUS miscellaneou s culture YEAST abnormal Yeast Not Available [facility] [address] [place] [address], [address], 03/10/2025 11:26:38 03/09/20 25 03/09/2025 CULTU RE MISCE LLANE OUS .note See Note Origi nal Order ing Provi carlito: DELGADO IA T MARTO CHRISTOPHER [facility] - [address] [facility], [facility], [facility] [place] [address] Not Available [facility] [address] [place] [address], [address], 03/10/2025 13:02:10 06/30/20 25 03/09/2025 CULTU RE MISCE LLANE OUS miscellaneou s culture YEAST abnormal Yeast Not Available [facility] [address] [place], [address], 03/10/2025 13:02:10 03/09/20 25 03/09/2025 CULTU RE FUNGU S, OTHER THAN SKIN HAIR OR NAILS .note See Note Origi nal Order ing Provi carlito: DELGADO CARRANZA T MARTO CHRISTOPHER [facility] - [address] [facility], Kera gfiel d, [place] [address] Not Available [facility] [address] [place], [address], 03/16/2025 14:09:09 03/09/20 25 03/09/2025 CULTU RE FUNGU S, OTHER THAN SKIN HAIR OR NAILS culture, fungus YEAST abnormal Yeast Not Available [facility] [address] [place], [address], 03/16/2025 14:09:09 06/18/20 24 06/04/2024 US, abdom en, compl ete No observ ation record ed. [email or web address] [facility], [place], [address], 06/18/2024 11:12:25 07/15/20 24 07/15/2024 elect rocar diogr am No observ ation record ed. cmartorell Main Office [address] [place] [address], [phone], 07/15/2024 17:12:05 07/17/20 elect rocar diogr am No observ ation record ed. [email or web address] Main Office [address] [place] [address], [phone], 07/17/2024 14:15:04 Result Notes None recorded. Problems Name Problem SNOMED Code Status Onset Date Resolution Date Notes Provider Name and Address Organization Details Recorded Time Asthma 894764254 Active 2006 Asthma; snomeddesc ription: Asthma; Report Immunity to Registry: Yes; Asthma; Report Immunity to Registry: Yes; ReasonDate : 10/13/2019 ; ; Start Date : 10/13/2019 Asthma; snomeddesc ription: Asthma; Report Immunity to Registry: Yes; Not Available [facility] 4 06:58:53 Male hypogonad ism 67787695 Active 2012 Male hypogonadi sm; snomeddesc ription: Male hypogonadi sm; Report Immunity to Registry: Yes; Not Available [facility] 4 06:58:53 Diarrhea 88163483 Active 2006 Diarrhea; snomeddesc ription: Diarrhea; Report Immunity to Registry: Yes; Diarrhea, unspecifie d; snomeddesc ription: Diarrhea; Report Immunity to Registry: Yes; Not Available [facility] 4 06:58:53 Substance abuse 36138874 Active 2006 Substance abuse; snomeddesc ription: Substance abuse; Report Immunity to Registry: Yes; Notes: opiate/suad jolene/benzo ; Not Available [facility] 4 06:58:53 Human immunodef iciency virus infection 42452425 Active 1991 Human immunodefi ciency virus [HIV] disease; snomeddesc ription: Human immunodefi ciency virus infection; Report Immunity to Registry: Yes; Human immunodefi ciency virus infection; snomeddesc ription: Human immunodefi ciency virus infection; Report Immunity to Registry: Yes; Not Available [facility] 4 06:58:53 Steatotic liver disease 267434229 Active 2006 Steatosis of liver; snomeddesc ription: Steatosis of liver; Report Immunity to Registry: Yes; Notes: u/s 2021; Fatty (change of) liver, not elsewhere classified ; snomeddesc ription: Steatosis of liver; Report Immunity to Registry: Yes; Notes: u/s 2021; Not Available [facility] 4 06:58:53 Herpesvir us infection 81482330 Active 2009 Herpesvira l infection, unspecifie d; snomeddesc ription: Herpes simplex; Report Immunity to Registry: Yes; Notes: HSV 1 pos serology; HSV 2 neg serology; Not Available [facility] 4 06:58:53 Fibromyos itis 03666485 Active 2006 Myalgia and myositis, unspecifie d; snomeddesc ription: Fibromyalg ia; Report Immunity to Registry: Yes; Notes: Chronic pain multiple/c hronic back pain; Not Available [facility] 4 06:58:53 Herpes simplex 91769089 Active 2009 Herpes simplex; snomeddesc ription: Herpes simplex; Report Immunity to Registry: Yes; Notes: HSV 1 pos serology; HSV 2 neg serology; Not Available [facility] 4 06:58:54 Kidney stone 36877060 Active 2001 Calculus of kidney; snomeddesc ription: Kidney stone; Report Immunity to Registry: Yes; Kidney stone; snomeddesc ription: Kidney stone; Report Immunity to Registry: Yes; Not Available [facility] 4 06:58:54 History of calculus of kidney 525257646 Active 2001 History of calculus of kidney; snomeddesc ription: History of calculus of kidney; Report Immunity to Registry: Yes; Not Available [facility] 4 06:58:54 Type B viral hepatitis 71626825 Active 2006 Type B viral hepatitis; snomeddesc ription: Type B viral hepatitis; Report Immunity to Registry: Yes; Notes: core ab pos; s ag neg; s ab neg HBV vL nondetecte d 2016; 2017; Not Available [facility] 4 06:58:54 Hyperplas ia of prostate 938546532 Active 2014 Hyperplasi a of prostate, unspecifie d, without urinary obstructio n and other lower urinary symptoms (LUTS); snomeddesc ription: Hyperplasi a of prostate; Report Immunity to Registry: Yes; Hyperplas ia of prostate; snomeddesc ription: Hyperplasi a of prostate; Report Immunity to Registry: Yes; Not Available [facility] 4 06:58:54 Anxiety 78997198 Active 1996 Anxiety; snomeddesc ription: Anxiety; Report Immunity to Registry: Yes; Not Available [facility] 4 06:58:54 Testicula r hypofunct ion 381756797 Active 2012 Other testicular hypofuncti on; snomeddesc ription: Male hypogonadi sm; Report Immunity to Registry: Yes; Not Available [facility] 4 06:58:54 Seasonal allergic rhinitis 742229164 Active 2012 Other seasonal allergic rhinitis; snomeddesc ription: Seasonal allergy; Report Immunity to Registry: Yes; Notes: hx nasal congestion ; Not Available [facility] 4 06:58:54 Onychomyc osis due to dermatoph yte 928613708 Active 2017 Tinea unguium; snomeddesc ription: Onychomyco sis; Report Immunity to Registry: Yes; Notes: feet digits; Not Available [facility] 4 06:58:55 Sleep apnea 44595950 Active 1999 Sleep apnea; snomeddesc ription: Sleep apnea; Report Immunity to Registry: Yes; Unspecifi ed sleep apnea; snomeddesc ription: Sleep apnea; Report Immunity to Registry: Yes; Not Available [facility] 4 06:58:55 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 15556993 Active 2006 Other psychoacti ve substance abuse, uncomplica lucho; snomeddesc ription: Substance abuse; Report Immunity to Registry: Yes; Notes: opiate/suad jolene/benzo ; Not Available [facility] 4 06:58:55 Viral hepatitis B without hepatic coma 971275259 Active 2006 Unspecifie d viral hepatitis B without hepatic coma; snomeddesc ription: Type B viral hepatitis; Report Immunity to Registry: Yes; Notes: core ab pos; s ag neg; s ab neg HBV vL nondetecte d 2016; 2017; Not Available [facility] 4 06:58:55 Blood chemistry outside reference range 394183346 Active 2012 Other specified abnormal findings of blood chemistry; snomeddesc ription: Decreased testostero ne level; Report Immunity to Registry: Yes; Notes: hypogoandi sm; Not Available [facility] 4 06:58:55 Arthritis 6374531 Active 1998 Arthritis; snomeddesc ription: Arthritis; Report Immunity to Registry: Yes; Notes: Osteoatrth ris multiple; Not Available [facility] 4 06:58:55 History of urinary stone 108207959 Active 2001 Personal history of urinary calculi; snomeddesc ription: History of calculus of kidney; Report Immunity to Registry: Yes; Not Available [facility] 4 06:58:56 Fibromyal mika 544291594 Active 2006 Fibromyalg ia; snomeddesc ription: Fibromyalg ia; Report Immunity to Registry: Yes; Notes: Chronic pain multiple/c hronic back pain; Not Available [facility] 4 06:58:56 Lyme disease 24429444 Active 2017 Lyme disease; Report Immunity to Registry: Yes; Notes: tx cefuroxime x14 d (hx all Doxy); Not Available [facility] 4 06:58:56 Headache 25303062 Active 2008 Headache; snomeddesc ription: Headache; Report Immunity to Registry: Yes; Notes: migraine; Headache; snomeddesc ription: Headache; Report Immunity to Registry: Yes; Notes: migraine; Not Available [facility] 4 06:58:56 Hypertens marj disorder 15890962 Active 2017 Hypertensi ve disorder; snomeddesc ription: Hypertensi ve disorder; Report Immunity to Registry: Yes; Not Available [facility] 4 06:58:56 Arthropat hy 417499391 Active 1998 Arthropath y, unspecifie d, site unspecifie d; snomeddesc ription: Arthritis; Report Immunity to Registry: Yes; Notes: Osteoatrth ris multiple; Not Available [facility] 4 06:58:56 Essential hypertens ion 42300650 Active 2017 Essential (primary) hypertensi on; snomeddesc ription: Hypertensi ve disorder; Report Immunity to Registry: Yes; Not Available [facility] 4 06:58:57 Testoster one level below reference range 854161792 Active 2012 Decreased testostero ne level; snomeddesc ription: Decreased testostero ne level; Report Immunity to Registry: Yes; Notes: hypogoandi sm; Not Available [facility] 4 06:58:57 Insomnia 146157464 Active 1996 Insomnia; Report Immunity to Registry: Yes; Not Available [facility] 4 06:58:57 Anxiety state 288728006 Active 1996 Anxiety state, unspecifie d; snomeddesc ription: Anxiety; Report Immunity to Registry: Yes; Not Available [facility] 4 06:58:57 Onychomyc osis 623661307 Active 2017 Onychomyco sis; snomeddesc ription: Onychomyco sis; Report Immunity to Registry: Yes; Notes: feet digits; Not Available [facility] 4 06:58:57 Chronic hepatitis C 447426926 Active 2006 Chronic hepatitis C without mention [...] 2015;2017; 12/2021 F2 ; Not Available [facility] 4 06:58:57 Depressiv e disorder 14746029 Active 1996 Depressive disorder, not elsewhere classified ; snomeddesc ription: Depressive disorder; Report Immunity to Registry: Yes; Depressiv e disorder; snomeddesc ription: Depressive disorder; Report Immunity to Registry: Yes; Not Available [facility] 4 06:58:58 Seasonal allergy 110153108 Active 2012 Seasonal allergy; snomeddesc ription: Seasonal allergy; Report Immunity to Registry: Yes; Notes: hx nasal congestion ; Not Available [facility] 4 06:58:58 Loss of appetite 28214779 Active 2012 Anorexia; snomeddesc ription: Loss of appetite; Report Immunity to Registry: Yes; Loss of appetite; snomeddesc ription: Loss of appetite; Report Immunity to Registry: Yes; Not Available [facility] 4 06:58:58 Seizure 49284977 Active 2000 Seizure; snomeddesc ription: Seizure; Report [...] Immunity to Registry: Yes; Not Available [facility] 4 06:58:58 Problem Notes None recorded. Medical Equipment None Reported. Allergies Allergen ID Allergen Name Allergen Category Reaction Reaction Severity Criticality Documentation Date Start Date Code Code System Note Provider Name and Address Organization Details Recorded Time 714 Reglan medicatio n Not available Not available Not available 10/31/20232012 9230 RxNorm Comme nt: adver se_ev ent_t ype: 27909 8002; ; Not Available [facility] 4 06:50:47 715 Motrin medicatio n Not available Not available Not available 10/31/2023201248 8 RxNorm Comme nt: adver se_ev ent_t ype: 48700 8002; ; Not Available [facility] 4 06:50:47 716 doxycycli ne Not available Not available Not available Not available 10/31/20232017 3640 RxNorm Comme nt: adver se_ev ent_t ype: 71628 8002; ; Not Available [facility] 4 06:50:47 Medications Name Sig [...] HORAS CUANDO SEA NECESARI O PARA EL DOLOR-MO LD POR 10 D active Not Available [...] Available Liquid Nutrition oral 0 Quantity : 60666; Duration : 30; 0 refill(s ) 09/30 [...] Not Available Not Available No t Available Augmentin 500 mg-125 mg tablet Take 1 tablet every 12 hours by oral route for 7 days. 2024 active Not Available Not Available Not Avai lable ipratropi um bromide 21 mcg (0.03 %) [...] Not Available Not Available Not Available Afluria 2804-3852 45 mcg (15 mcg x 3)/0.5 mL [...] Not Available Not Available Not [facility] 60 mcg (15 mcg x 4)/0.5 [...] active Not Available Not Available Not Available [facility] 60 mcg (15 mcg x 4)/0.5 mL intramusc ular susp. quadriva lent Quantity : ; 0 refill(s ) 2018 active VACCINE_ IND: yes; VACCINE_ NAME: influenz a, injectab le, quadriva lent; SU_FULL_ NAME: Cheryl scales; VIS_DATE : 05:00:00 .0; Not Available Not Available Not Available [facility] 60 mcg (15 mcg x 4)/0.5 [...] Pneumoco ccal conjugat e PCV20, polysacc haride [id number] conjugat e, adjuvant , PF; Not Available Not Available Not Available Vitals Date Recorded Heart rate Body temperature Body weight Systolic And Diastolic Provider Name and Address Organization Details Last Updated DateTime 10/21/2024 98 /min 98.2 [degF] 39568.26 g 118/97 mm[Hg] Lexis LEVIN MD [facility] 10/21/2024 12:04:23 Date Recorded Body height Heart rate Respiratory rate Body mass index (BMI) Body weight Systolic And Diastolic Provider Name and Address Organization Details Last Updated DateTime 162.56 cm 81 /min 20 /min 24.9 kg/m2 96399.8 9 g 136/89 mm[Hg] Cheryl Levin MD [address] [place] [address], [phone], LYNN LEVIN MD [facility] 5 15:01:34 Date Recorded Heart rate Body mass index (BMI) Body weight Respiratory rate Systolic And Diastolic Provider Name and Address Organization Details Last Updated DateTime 12/30/2024 92 /min 26.1 kg/m2 78938.04 g 16 /min 108/83 mm[Hg] Cheryl Levin MD [address] [place] [address], [phone], LYNN LEVIN MD [facility] 16:33:39 Date Recorded Body height Provider Name an d Address Organization Details Last Updated DateTime 12/30/2024 162.56 cm Jany Delvalle LYNN LEVIN MD [facility] 12/30/2024 15:08:38 Date Recorded Body height Heart rate Respiratory rate Body temperature Body mass index (BMI) Body weight Systolic And Diastolic Provider Name and Address Organization Details Last Updated DateTime 5 162.56 cm 103 /min 18 /min 98.4 [degF] 25.1 kg/m2 93301.4 9 g 110/80 mm[Hg] Aleksandra LEVIN MD [facility] 5 11:09:16 Date Recorded Body temperature Body mass index (BMI) Body weight Respiratory rate Heart rate Systolic And Diastolic Provider Name and Address Organization Details Last Updated DateTime 4 98.7 [degF] 20.6 kg/m2 66507.0 8 g 20 /min 87 /min 120/80 mm[Hg] Cheryl Levin MD [address] [facility] [place], [address], LYNN LEVIN MD [facility] 4 15:46:02 Date Recorded Body height Provider Name an d Address Organization Details Last Updated DateTime 07/15/2024 162.56 cm Jerome Centeno LYNN LEVIN MD [facility] 07/15/2024 15:22:29 Social History None recorded. Functional [...] Meningococcal MCV4O 9 completed Not Available [facility] 10/31/2023 06:54:49 zoster live 9 completed Not Available [facility] 10/31/2023 06:54:50 Influenza, split virus, quadrivalent, preservative 9 completed Not Available [facility] 10/31/2023 06:54:50 Influenza, split virus, quadrivalent, preservative 8 completed Not Available [facility] 10/31/2023 06:54:50 Influenza, split virus, quadrivalent, preservative 0 completed Not Available [facility] 10/31/2023 06:54:50 Past Encounters Encounter ID Performer Location Encounter Start Date Encounter Closed Date Diagnosis/Indication Diagnosis SNOMED-CT Code Diagnosis ICD10 Code Diagnosis Note [id number] Cheryl Levin MD Main Office [address] [facility] [place] [address] 05/25/2023 09:48:40 06/27/2023 09:16:16 Human immunodeficiency virus infection 45596469 B20 HIV. Continue Biktarvy 1 tab po [...] sex. plan of care reviewed [id number] Cheryl Levin MD Main Office [address] [place] [address], [place] [address] 08/24/2023 09:33:00 08/24/2023 10:46:09 Human immunodeficiency virus infection 34168093 B20 HIV. Continue Biktarvy 1 tab po [...] /Tivicay.s afe sex.labs Septemberlan of care reviewed [id number] Cheryl Levin MD Main Office [address] [place] [address], [place] [address] 11/12/2023 11:34:42 11/16/2023 15:00:47 Human immunodeficiency virus infection 31132807 B20 HIV.Contin ue Biktarvy 1 tab po qd.U=Upt aware of PreP availabili ty.condom use.plan of care reviewed Adult [facility] th examination 476595293 Z00.00 [id number] Cheryl Levin MD Main Office [address] [place] [address], [place] [address] 11/21/2023 10:59:43 11/23/2023 14:55:21 [id number] Cheryl Levin MD Main Office [address] [place] [address], [place] [address] 01/14/2024 09:27:39 01/16/2024 13:51:41 [id number] Cheryl Levin MD Main Office [address] [place] [phone] 01/16/2024 10:24:39 01/16/2024 11:50:10 Human immunodeficiency virus infection 52938683 B20 HIV.Contin ue Biktarvy 1 tab po qd.U=Upt aware of PreP availabili ty.condom use.labs todayplan of care reviewed Candidiasis of mouth 797 00786 B37.0 nystatin 5cc po qid x 14 days. swish and spit.call with any side effects.ba cterial/fu ngal swab obtained. 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 [id number] Cheryl Levin MD Main Office [address] [facility] [place] [address] 02/14/2024 12:00:04 02/14/2024 12:24:19 Human immunodeficiency virus infection 88099237 B20 HIV.Contin ue Biktarvy 1 tab po qd.U=Upt aware of PreP availabili ty.DoxyPEP reviewedco ndom use.labs todayplan of care reviewed Methicilli n resistant Staphylococcus aureus infection 352557123 A49.02 swab culture 01/2024 Candidiasi s of the esophagus 31882648 B37.81 sandy glabratafl uconazole 100mg po qd x 14 dayscall with any side effects. Weight loss 54627278 R63 .4 contributi ng factor sandy, MRSA, HIV among othermight benefit from Serostim.w ill review with himG tube [id number] Cheryl Levin MD Main Office [address] [facility] [place] [address] 02/21/2024 11:08:05 02/21/2024 12:09:56 Human immunodeficiency virus infection 93268993 B20 HIV.Contin ue Biktarvy 1 tab po qd.complia nce reviewedU= Upt aware of PreP availabili ty.DoxyPEP reviewedco ndom use.labs todayplan of care reviewed Candidiasi s of the esophagus 82148561 B37.81 sandy glabratato complete fluconazol e 100mg po bid x 14 days: (10mg/ml) 10ml by G tube bidcall with any side effects. Methicilli n resistant Staphylococcus aureus infection 668063666 A49.02 swab culture urr ently on Bactrim oral suspension (200mg- 40mg/5ml) since 02/15-20ml q 12 hrs G tube x 10 days Cachexia a ssociated with AIDS 098564548 B20 R64 weight loss. frail. progressin g.contribu ting factor sandy, MRSA, HIV among other. G tubeSerost im 6mg sq qd will be prescribed with the goal of helping w weight gain, increase muscle mass gain, and increase enduranceh e has visiting nurse who could assist with daily injections . [id number] Cheryl Levin MD Main Office [address] [facility] [address] 02/25/2024 10:24:53 02/25/2024 11:09:27 Human immunodeficiency virus infection 46334583 B20 HIV.Contin ue Biktarvy 1 tab po qd.complia nce reviewedU= Ucondom use.labs todayplan of care reviewed Candidiasi s of the esophagus 80220681 B37.81 sandy glabratawi ll continue fluconazol e 200 mg po qd x 14 days: (10mg/ml) 10ml by G tube QD;will on next appointmen t for further tx va suppressio n tx.call with any side effects. Cachexia a ssociated with AIDS 106884654 B20 R64 weight loss. frail. progressin g.approved Serostim 6mg sq qd; awaiting delivery to the office. will be prescribed with the goal of helping w weight gain, increase muscle mass gain, and increase enduranceh e has visiting nurse who could assist with daily injections .ensure tidmegace 625 mg qd. Methicilli n resistant Staphylococcus aureus infection 850032859 A49.02 swab culture 01/2024will complete 10 days of Bactrim oral suspension (200mg- 40mg/5ml) since 02/15-20ml q 12 hrs G tube on 02/27/24 [id number] Cheryl Levin MD Main Office [address] [facility] [address] 03/14/2024 10:24:00 03/14/2024 10:29:25 Cachexia associated with AIDS 196975799 R64 B20 gained 2 pounds. probably improved sandy esophagiti s 2nd to inhaled steroids.S Tart Serostim 6mg s/c qd abdomen. first dose administer ed today. Tolerated well; goalis to increase weight, endurance and muscle massHe will have AFTERSCHO[employer] and nurse help with daily injections .potential side effects reviewed.t o call with any concernshe will turkey picker Megace today, and start it as well(G tube) qd to increase apetitte Human immunodeficiency virus infection 63204856 B20 HIV.Contin ue Biktarvy 1 tab po qd.complia nce reviewed Candidiasi s of the esophagus B37.81 sandy glabratawi ll continue 2 more weeks of fluconazol e 200 mg po qd x 14 days: (10mg/ml) 10ml by G tube QD;might benefit from qw suppressio n tx.call with any side effects. 97281 Cheryl Levin MD Main Office [address] [place] [address] 04/18/2024 09:52:00 04/18/2024 11:19:01 Cachexia associated with AIDS 585016508 R64 B20 124 lbs. gained weightcont inue Serostim 6mg s/c qd abdomen. goalis to increase weight, endurance and muscle masscontin ue Megace G tube qdCNA and nurse helping with compliance and tx.potenti al side effects reviewed.t o call with any concerns Human immunodeficiency virus infection 42279254 B20 HIV.Contin ue Biktarvy 1 tab po qd.complia nce reviewedla bs today Candidiasi s of the esophagus B37.81 sandy glabratawi ll continue fluconazol e 200 (10ml) mg G tube qw for suppressio n tx.call with any side effects. Aspiration pneumonia 422 415473 J69.0 get discharge summaryon antibiotic ;eat standing or sitting; [place] [address] Cheryl Levin MD Main Office [address] [facility] [place] [address] 05/20/2024 10:17:53 05/20/2024 12:44:49 Cachexia associated with AIDS 690431205 R64 B20 continue Serostim 6mg s/c qd abdomen. goal is to increase weight, endurance and muscle masscontin ue Megace G tube qd 5cc qdCNA and nurse helping with compliance and tx.potenti al side effects reviewed.t o call with any concerns Human immunodeficiency virus infection 39778154 B20 HIV.Contin ue Biktarvy 1 tab po qd.padmini tala bs today Candidiasi s of the esophagus 18389059 B37.81 sandy glabrataho ld fluconazol e for nowSTART 1 tab po bid x 21 says for esophageal sandy glabrata.c all with any side effects. 48055 Cheryl Levin MD Main Office [address] [place] [address], [place] [address] 06/18/2024 10:10:09 06/18/2024 11:12:33 Cachexia associated with AIDS 033120819 R64 B20 continue Serostim 6mg s/c qd abdomen. goal is to increase weight, endurance and muscle massCNA and nurse helping with compliance and tx.megace on holdpotent ial side effects reviewed.t o call with any concerns Human immunodeficiency virus infection 08527578 B20 HIV.Contin ue Biktarvy 1 tab po qd.padmini butt bs today Inflammato ry disease of liver 932002966 K75.9 Suspect 2nd to concomitan t medication s. ongoingdo not re-start fluconazol e nor megacenega tive infectious and non-infect ious workupto call or ER if jaundice, abd pain, n/v/d marce huertas History of calculus of kidney 574643432 Z87.442 u/s 05/[address] scan 02/2024hydr ation Aspiration pneumonia 422 554880 J69.0 s/p aspiration on CT AngioNPO per instructio n given to him in hospital; nutrition by G tubes/p (ceftriaxo ne,Azithro ,Flagyl while in Hospital;d ischarged on azithro and cefpodoxim e x 3 days which he completed. leg elevationa void sedating meds as much as possible Deep venou s thrombosis of lower extremity 127991347 I82.409 left lower extremity doppler showed DVT of gastrocnem ius vein;on tx w w Eliquis bid . Pulmonary embolism [address] Angio was positive for Acute lobar PEs/p heparin; ongoing Eliquis bidmed list reviewed.n o drug use for years. not on maintenanc e tx.denies current ETOH use. 03452 Cheryl Levin MD Main Office [address] [place] [address] 07/15/2024 15:10:10 07/15/2024 15:45:30 Cachexia associated with AIDS 108676385 R64 B20 continue Serostim 6mg s/c qd abdomen. goal is to increase weight, endurance and muscle masspotent ial side effects reviewed.t o call with any concerns Human immunodeficiency virus infection 30693601 B20 HIV.Contin ue Biktarvy 1 tab po qd.complia nce reviewedla bs Candidiasi s of the esophagus B37.81 on clotrimazo le. swish and spit qd Medication monitoring 39 5852642 Z51.81 87105 Cheryl Levin MD Main Office [address] [place] [address] 10/21/2024 12:22:54 10/21/2024 16:48:51 Cachexia associated with AIDS 671107700 R64 B20 improvedco ntinue Serostim 6mg s/c qd abdomen. goal is to increase weight, endurance and muscle masspotent ial side effects reviewed.m ay start decreasing dose in 1-2 months if further weight gainon Boost protein shakesto call with any concerns Human immunodeficiency virus infection 82287413 B20 HIV.Contin ue Biktarvy 1 tab po qd.complia nce reviewedla bs Candidiasi s of the esophagus 57618298 B37.81 on clotrimazo le. swish and spit qd/BID PRN 44015 Cheryl Levin MD Main Office [address] [place] [address] 11/25/2024 11:48:55 11/25/2024 14:20:54 Cachexia associated with AIDS 000218034 R64 B20 improvedco ntinue Serostim 6mg s/c [...] with any concerns Human immunodeficiency virus infection 87496732 B20 HIV.Contin ue Biktarvy 1 tab po qd.complia nce reviewedla bs Candidiasi s of the esophagus 81 off/on; recurrento n clotrimazo le. swish and spit qd/BID PRN for suppressio n Insomnia 754564221 G47.0 0 benadryl capsules requested by patient forinsomni a and itchiness as needed.cor rect use reviewed. 17702 Cheryl Levin MD Main Office [address] [place] [address] 12/30/2024 15:04:38 12/31/2024 09:52:40 Cachexia associated with AIDS 293593266 R64 B20 improvedco ntinue Serostim 6mg s/c [...] with any concerns Human immunodeficiency virus infection 38725351 B20 HIV.Contin ue Biktarvy 1 tab po qd.complia nce reviewedla bs Candidiasi s of the esophagus 81 off/on; recurrento n clotrimazo le. swish and spit /BID/TID PRN for suppressio n 87899 Cheryl Levin MD Main Office [address] [place] [address] 03/09/2025 09:16:22 03/09/2025 10:12:30 Cachexia associated with AIDS 822082888 R64 B20 stable/imp roved.cont inue Serostim 6mg s/c qd abdomen. goal is to increase weight, endurance and muscle masspotent ial side effects reviewed.o n Boost protein shakescont inue megace; plan to stop in the next 2-3 monthsto call with any concerns Human immunodeficiency virus infection 35107752 B20 HIV.Contin ue Biktarvy 1 tab po qd.complia nce reviewedla bs Candidiasi s of the esophagus 81 off/on; recurrento n clotrimazo le. swish and spit /BID/TID PRN for suppressio nSTART Fluconazol e 100mg po qd x 21 days: esophageal sandy; then continue clotrimazo le for suppressio noral swab for sandy/ba cteria obtained Abnormal a nal Papanicolaou smear 102395282 R85.619 Anal PAP sample obtained/p reformed: no abnormalit yGC/chlamy jean carlos rectal done Health Concerns Section Related Observation LastModified by Organization Detai ls LastModified Time None Recorded Concern Status LastModified by Organization Details LastModified Time None Recorded Advance Directives Directive None Recorded Payers Insurance Date Sequence Insurance Name Policy Number Policy Perry Covered Member ID Perry Member ID Guarantor Name 03/10/[address] [facility] - DOS ON OR AFTER 2022 - MEDICARE ADVANTAGE [place] (MEDICARE REPLACEMENT/AD VANTAGE - PPO) Benjamin Fall [id number] Benjamin Juan David Notes Date Note Type [...] VL nondetetcted01/2024 HIV VL nondetcetd;eGFR=76;AST /ALT wnl;11/2023 IH8=028; HIV VLnondetceted; no infections. Cheryl Levin MD [address] [place] [address], [phone], [facility] - CHERYL LEVIN MD [facility] 07/15/2024 15:47:48 10/21/2024 text/html HIVOn Biktarvy [...] notify site start date and confirm medication. COUNTER PERSON in room with his consent. Cheryl Levin MD [address] [place] [address], [phone], [facility] - CHERYL LEVIN MD [facility] 10/21/2024 14:34:28 11/25/2024 text/html HIVOn Biktarvy [...] cyst removal in recent weeks. outpatient/day procedure. COUNTER PERSON in room with his consent. 07/2025 HIV VL nondetceted; ALt/AST wnl; eGFR>60; EH0=363 Cheryl Levin MD [address] [place] [address], [phone], [facility] - CHERYL LEVIN MD [facility] 11/26/2024 15:09:42 12/30/2024 text/html HIVOn Biktarvy 1 tab po qd.reports daily compliance. denies missing dose.thrush. gets on/off and using clotrimazole to treat/suppress.gaining weight: 120lbs ---145lbs --152 lbsno aspirationgetting serostim daily for cachexia,no side effects.might get G tube removed in February 2025.no hospitalizations since he was last seenmed list reviewed. COUNTER PERSON [facility]. came in today with a a friendVL nondetceted;07/2025 HIV VL nondetceted; ALt/AST wnl; eGFR>60; NL0=686 Cheryl Levin MD [address] [place] [address], [phone], LYNN LEVIN MD [facility] 12/30/2024 16:39:33 03/09/2025 text/html HIVOn Biktarvy 1 tab po qd.reports daily compliance. denies missing dose.thrush ongoing. has flareup today.gets on/off and using clotrimazole to treat/suppress.getting serostim daily for cachexia, helpingno side effects.might get G tube removed in February 2025.med list reviewed. will get anal pap VL nondetceted;02/07/2024 HIV Vl=24; AST =28 ALT 109; eGFR=90;07/2025 HIV VL nondetceted; ALt/AST wnl; eGFR>60; VD3=935 Cheryl Levin MD [address] [place] [address], [phone], LYNN LEVIN MD [facility] 03/09/2025 13:13:07
--- OUTSIDE RECORDS SUMMARY | 2025-03-17 11:45 | XMS_ITS | Clinical Summary ---
Author Organization [address] [facility] Address [address] [place] [address] Phone Care Team Providers Care Marketing Automation Manager Name Role Phone Physician, Pcp Unknown Primary Care Provider Bina vailable Encounters Date Type Department Care Team Description 03/10/2025 Lab Requisition [facility] [address] [place] [address] MD Unspecified abnormal cytological findings in specimens from anus 03/09/2025 Lab Requisition [facility] [address] [place] [address] MD Candidal esophagitis ([facility] V24, [facility] V28) from Last 3 Months Surgical History Surgery Date Site/Laterality Comments EYE SURGERY Left PROCEDURE: HISTORICAL EYE SURGERY OTHER SURGICAL HISTORY PROCEDURE: ---- OTHER ----; COMMENT: hemorrhoids Medical History Medical History Date Comments Seizures ([facility] V24, [facility] V28) 06/29/2016 DX:Seizures ([facility]); COMMENT: F/u with neuro at [place] HIV (human immunodeficiency virus infection) ([facility] V24, [facility] V28) 06/29/2016 DX:HIV (human im munodeficiency virus infection) ([facility]); COMMENT: HIV dx in 1991, f/u Dr. Street Depression 06/29/2016 DX:Depression Anxiety 06/29/2016 DX:Anxiety; COMM ENT: F/u [facility] Counseling Chronic back pain 06/29/2016 [...] Care Team ([facility] Contact Info) Description 05/05/2025 9:45 AM EDT Consult Orthopedic Surgery - [place] [address] [address] [facility] [address] [place] [address] Kb Benitez, BERNABE [address] [facility] [address] [place] [address] Health Maintenance Due Date Last Done Comments Meningococcal ACWY Vaccine ( 1 - Risk 2-dose series) 1966 COVID-19 Vaccine (#1) 1969 MMR Vaccines (1 of 2 - Risk 2-dose series) 1982 DTaP,Tdap,and Td Vaccines (1 - Tdap) 1983 Hepatitis A Vaccines (1 of 2 - Risk 2-dose series) 1983 Pneumococcal Vaccine: 50+ Ye ars (1 of 2 - PCV) 1983 Zoster [...] Name Priority Date/Time Associated Diagnosis Comments CULTURE FUNGUS, OTHER THAN SKIN HAIR OR NAILS Routine 03/09/2025 12:00 AM EDT Candidal esophagitis ([facility] V24, [facility] V28) CULTURE MISCELLANEOUS Routine 03/09/2025 12:00 AM EDT Candidal esophagitis ([facility] V24, [facility] V28) CHLAMYDIA TRACHOMATIS AND NEISSERIA GONORRHOEAE PCR Routine 03/09/2025 12:00 AM EDT Candidal esophagitis ([facility] V24, [facility] V28) from Last 3 Months Results * (ABNORMAL) Culture miscellaneous (03/09/2025 12:00 AM EDT) Miscellaneous Culture Yulia albicans/dubl iniensis(A) GALEN 03/12/2025 10:54 AM EDT [facility] Comment: Edited result: Previously reported as Yeast on 2025 at 1140 EDT. Miscellaneous Culture Klebsiella pneumoniae ssp pneumoniae(A) GALEN 03/12/2025 10:54 AM EDT [facility] Comment: The organism value for this result has been updated. These results have been appended to the previously preliminary verified report. Swab Oral cavity structure / Unknown 03/09/2025 03/09/2025 6:57 PM EDT Narrative Organism Antibiotic Method Susceptibility Klebsiella pneumoniae ssp pneumoniae Amoxicillin/Clavulanate GALEN <=2 ug/ml: Susceptible Klebsiella pneumoniae ssp pneumoniae Ampicillin/Sulbactam GALEN 4 ug/ml: Susceptible Klebsiella pneumoniae ssp pneumoniae Piperacillin/Tazobactam GALEN <=4 ug/ml: Susceptible Klebsiella pneumoniae ssp pneumoniae Cefazolin (Other) GALEN 2 ug/ml: Susceptible Klebsiella pneumoniae ssp pneumoniae Cefoxitin GALEN <=4 ug/ml: Susceptible Klebsiella pneumoniae ssp pneumoniae Ceftazidime GALEN <=0.5 ug/ml: Susceptible Klebsiella pneumoniae ssp pneumoniae Ceftriaxone GALEN <=0.25 ug/ml: Susceptible Klebsiella pneumoniae ssp pneumoniae Cefepime GALEN <=0.12 ug/ml: Susceptible Klebsiella pneumoniae ssp pneumoniae Meropenem GALEN <=0.25 ug/ml: Susceptible Klebsiella pneumoniae ssp pneumoniae Amikacin GALEN <=1 ug/ml: Susceptible Klebsiella pneumoniae ssp pneumoniae Gentamicin GALEN <=1 ug/ml: Susceptible Klebsiella pneumoniae ssp pneumoniae Ciprofloxacin GALEN <=0.06 ug/ml: Susceptible Klebsiella pneumoniae ssp pneumoniae Levofloxacin GALEN <=0.12 ug/ml: Susceptible Klebsiella pneumoniae ssp pneumoniae Trimethoprim/Sulfamethoxazo le GALEN <=20 ug/ml: Susceptible Fabiola Street MD LAB MICROBIOLOGY - GENERA L ORDERABLES Final Result [facility] [address] [place] [address], [place] [phone] * Chlamydia trachomatis and Neisseria gonorrhoeae molecular study (03/09/2025 12:00 AM EDT) Pathologist [facility] Neisseria gonorrhoeae PCR Negative Negative LAB MOLECULAR DIAGNOSTICS METHOD 03/10/2025 8:49 AM EDT [facility] Chlamydia trachomatis PCR Negative Negative LAB MOLECULAR DIAGNOSTICS METHOD 03/10/2025 8:49 AM EDT [facility] Swab Rectum structure / Unknown 03/09/2025 03/09/2025 6:[address] MD LAB MICROBIOLOGY - GENERA L ORDERABLES Final Result [facility] [address] [place] [address], [place] [phone] from Last 3 Months Insurance MEDICAID - [place] [employer] MEDICARE Member Subscriber Plan / Payer ( fective 2017-Present) Name:VICKIE GROVER Relation to Subscriber:Self Name:Vickie Fall Payer ID:[id number] Group ID:[id number] Type:Not on file Address: [address] [place] [address] Care Teams Marketing Automation Manager Relationship Specialty Start Date End Date Physician, Pcp Unknown PCP - General 03/10/25
--- OUTSIDE RECORDS SUMMARY | 2025-03-17 11:45 | XMS_ITS | Clinical Summary ---
Author Organization [facility] Address [address] [place] [address] Care Team Providers Care Foam Charger Name Role Phone Zora Arce PA-C Primary Care Provider [phone] Source Comments PLEASE NOTE, if this patient [...] EC tabletIndications:H IV (human immunodeficiency virus infection) ([facility]) Take 1 Tab by mouth once [...] NUTRITION) liquidIndications:H IV (human immunodeficiency virus infection) ([facility]) Take 1 Can by mouth 3 [...] 0.65 % nasal sprayIndications:As thma, intermittent, uncomplicated ([facility]) Place 1 [place] into the nostril(s) as needed for congestion. 60 mL 6 016 Active omeprazole (PRILOSEC) [address] capsuleIndications: Dyspepsia Take 1 Cap by mouth every morning before breakfast. Do not crush or chew. 30 Cap 3 016 Active albuterol sulfate hfa (PROAIR HFA) 90 mcg/actuation inhalerIndications: Asthma, intermittent, uncomplicated ([facility]) Inhale 2 Puffs into the lungs every 4 (four) hours as needed for shortness of breath. Int asthma 18 g 6 016 Active Active Problems Problem Noted Date Diagnosed Date Asthma, mild intermittent ([facility]) 05/06/2015 Fibromyalgia 01/27/2015 Generalized anxiety disorder 01/27/2015 Seizure disorder ([facility]) 01/27/2015 Major depressive disorder, r ecurrent, severe without psychotic features ([facility]) 01/27/2015 Overview (01/27/2015): Has therapist at [facility] HIV (human immunodeficiency virus infection) ([facility]) 01/27/2015 Chronic back pain 01/27/2015 Hepatitis C antibody test positive 01/27/2015 Overview (01/27/2015): Sp treatment per Dr Street Immunizations Immunization Administration Dates Next Due INFLUENZA, SEASONAL, INJECTABLE 07/09/2017 PNEUMOCOCCAL POLYSACCHARIDE PPV23 (Pneumovax 23) 03/19/2013 TDAP 04/20/2017 Td (adult), 5 Lf tetanus tox oid (Tenivac), preservative free 05/26/2013 Social History Tobacco Use Types Packs/Day [...] Plan of Treatment [place] on file [place] Member [facility]scriber [facility] Name:Benjamin Fall Relation to Subscriber:Self Name:Benjamin Fall Payer ID:[id number] Group ID:Not on file Type:Medicaid Address: [address] DENTAL Member Subscriber Plan / [facility]ayer [facility]Present) Name:Benjamin Fall Relation to Subscriber:Self Name:Benjamin Fall Payer ID:[id number] Group ID:Not on file Type:Other Address: [address] [place] [address] Care Teams Foam Charger Relationship Specialty Start Date End Date Zora Arce PA-C [address] [place] [address] PCP - General 11/05/18
== END 2025-03-17 11:08 | disposition home or self-care (01) ==
LOC: HO.ENCR 10:44
PROVIDERS: PCP Student in an Organized Health Care Education/Training Program; Visit Provider Student in an Organized Health Care Education/Training Program
DX: M81.0 Age-related osteoporosis without current pathological fracture (principal)

== ENCOUNTER → 2025-03-17 10:43 | Outpatient (BNVA) | payer OTHER, SELFPAY | PROVIDERS: PCP Student in an Organized Health Care Education/Training Program; Visit Provider Student in an Organized Health Care Education/Training Program | DX: M81.0 Age-related osteoporosis without current pathological fracture (principal) | CPT/HCPCS: 96372; J3111 ==

== ENCOUNTER 2025-03-24 09:13 | Outpatient (AMB) | payer OTHER, SELFPAY ==
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
--- OUTSIDE RECORDS SUMMARY | 2025-03-24 09:38 | XMS_ITS | Clinical Summary ---
Author Organization 175 [facility] Address [address] [place] [address] Phone Care Team Providers Care Evs Tech Name Role Phone Physician, Pcp Unknown Primary Care Provider Bina vailable Encounters Date Type Department Care Team Description 03/10/2025 Lab Requisition [facility] [address] [place] [address] MD Unspecified abnormal cytological findings in specimens from anus 03/09/2025 Lab Requisition [facility] [address] [place] [address] MD Candidal esophagitis ([facility] V24, [facility] V28) from Last 3 Months Surgical History Surgery Date Site/Laterality Comments EYE SURGERY Left PROCEDURE: HISTORICAL EYE SURGERY OTHER SURGICAL HISTORY PROCEDURE: ---- OTHER ----; COMMENT: hemorrhoids Medical History Medical History Date Comments Seizures ([facility] V24, [facility] V28) 06/29/2016 DX:Seizures ([facility]); COMMENT: F/u with neuro at [place] [address] Costello HIV (human immunodeficiency virus infection) ([facility] V24, [facility] V28) 06/29/2016 DX:HIV (human im munodeficiency virus infection) ([facility]); COMMENT: HIV dx in 1991, f/u Dr. Street Depression 06/29/2016 DX:Depression Anxiety 06/29/2016 DX:Anxiety; COMM ENT: F/u [facility] Chronic back pain 06/29/2016 DX:Chronic [...] Upcoming Encounters Date Type Department Care Team ([facility] [address] Contact Info) Description 05/05/2025 9:45 AM EDT Consult Orthopedic Surgery - [place] [id number] [address] [facility] [address] [place] [address] Kb Benitez, BERNABE 175 [facility] [address] [place] [address] Health Maintenance Due Date Last Done Comments [...] Procedure Name Priority Date/Time Associated Diagnosis Comments THINPREP CYTOLOGY WITH HPV, ANAL Routine 03/09/2025 12:00 AM EDT Unspecified abnormal cytological findings in specimens from anus NON-GYNECOLOGIC CYTOLOGY Routine 03/09/2025 12:00 AM EDT Unspecified abnormal cytological findings in specimens from anus CULTURE FUNGUS, OTHER THAN SKIN HAIR OR NAILS Routine 03/09/2025 12:00 AM EDT Candidal esophagitis ([facility] V24, [facility] V28) CULTURE MISCELLANEOUS Routine 03/09/2025 12:00 AM EDT Candidal esophagitis ([facility] V24, [facility] V28) CHLAMYDIA TRACHOMATIS AND NEISSERIA GONORRHOEAE PCR Routine 03/09/2025 12:00 AM EDT Candidal esophagitis ([facility] V24, [facility] V28) from Last 3 Months Results * Thinprep cytology with HPV, anal (03/09/2025 12:00 AM EDT) Scan Result See Scanned Result 03/17/2025 2:21 PM EDT EXTERNAL LAB (NON-INTERFAC ED) Brushing/Spatula Anal structure / Unknown 03/09/2025 03/10/2025 10:12 AM EDT us [address] MD LAB PATHOLOGY ORDERABLES Final Result EXTERNAL LAB (NON-INTERFACED) * (ABNORMAL) Culture fungus, other than skin hair or nails (03/09/2025 12:00 AM EDT) Culture, Fungus Yulia albicans(A) GALEN 03/18/2025 8:09 AM EDT [facility] Comment: Edited result: Previously reported as Yeast on 03/16/2025 at 1407 EDT. Swab Oral cavity structure / Unknown 03/09/2025 03/09/2025 6:57 PM EDT us [address] MD LAB MICROBIOLOGY - GENERA L ORDERABLES Final Result [facility] [address] [place] [address], [place] [phone] * (ABNORMAL) Culture miscellaneous (03/09/2025 12:00 AM EDT) Miscellaneous Culture Yulia albicans/dubl iniensis(A) GALEN 03/12/2025 10:54 AM EDT [facility] Comment: Edited result: Previously reported as Yeast on 2025 at 1140 EDT. Miscellaneous Culture Klebsiella pneumoniae ssp pneumoniae(A) GALEN 03/12/2025 10:54 AM EDT [facility] Comment: The organism value for [...] MICROBIOLOGY - GENERA L ORDERABLES Final Result Performing Organization Address [facility] Co de Phone Number [facility] [address] [place] [address], [place] [phone] * Chlamydia trachomatis and Neisseria gonorrhoeae molecular study (03/09/2025 12:00 AM EDT) Neisseria gonorrhoeae PCR Negative Negative LAB MOLECULAR DIAGNOSTICS METHOD 03/10/2025 8:49 AM EDT [facility] Chlamydia trachomatis PCR Negative Negative LAB MOLECULAR DIAGNOSTICS METHOD 03/10/2025 8:49 AM EDT [facility] Swab Rectum structure / Unknown 03/09/2025 03/09/2025 6:[address] MD LAB MICROBIOLOGY - GENERA L ORDERABLES Final Result Performing Organization Address [facility] de Phone Number [facility] [address] [place] [address], [place] [phone] * Non-gynecologic cytology (03/09/2025 12:00 AM EDT) Final Diagnosis Specimen sent to [facility] for Anal cytology with HPV CoTest. Their interpretation is as follows: Anal, Rectum (ThinPrep): Satisfactory for Evaluation. Transformation zone components absent. Negative for Intraepithelial Lesion or Malignancy. Disclaimer This test has been modified from the senior java web application developer's instructions. Its performance characteristics were determined by [facility] in a manner consistent with CLIA requirements. This test has not been cleared or approved by the U.S. Food and Drug Administration Report signed electronically by: Qi Lehman M.D. on 16 Mar 2025 at 13:55 at [facility], [address] [facility] (CLIA [id number]) HPV Anal Detect/Genotyping, PCR: High Risk HPV testing results are Negative. See specific genotype results below. HPV with Genotyping, PCR, ThinPrep: HPV High Risk Type 16, PCR: Negative HPV High Risk Type 18, PCR: Negative HPV other High Risk types, PCR: Negative Other High Risk HPV types include: 31, 33, 35, 39, 45, 51, 52, 56, 58, 59, 66, and 68 This test was ordered in the context of a [facility] Non-ART EDUCATOR Cytology case; this result should be interpreted within the context of the Non-ART EDUCATOR cytology report. Resulted 12 Mar 2025 at 17:00 by [facility], [address] [facility] (CLIA [id number]) Full report attached. 03/17/2025 2:31 PM EDT [facility] Disclaimer Unless otherwise specified, all tissue is 10% NB formalin fixed and paraffin embedded. Technical cytopathology services provided by [facility], at [address] [place] [address] (CLIA # [id number]/Angel Villalobos MD, Weld Inspector.) 03/17/2025 2:31 PM EDT [facility] Brushing/Spatula Anal structure / Unknown 03/09/2025 03/10/2025 9:22 [address] EDT us [address] MD LAB CYTOLOGY ORDERABLES F inal Result [facility] [address] [place] [address], from Last 3 Months [place] [address] [place] [address] MEDICAID - [place] [employer] MEDICARE Member Subscriber Plan / Payer (Ef fective 2017-Present) Name:VICKIE GROVER Relation to Subscriber:Self Name:Vickie Fall Payer ID:[id number] Group ID:[id number] Type:Not on file Address: [address] [place] [address] Care Teams Evs Tech Relationship Specialty Start Date End Date Physician, Pcp Unknown PCP - General 03/10/25
--- OUTSIDE RECORDS SUMMARY | 2025-03-24 09:38 | XMS_ITS | Data Portability ---
Demographics Address [address] [place] [address] Home Phone Mobile Phone Preferred Language es Marital Status Never Spiritism Affiliation Unknown Race White Ethnic Group or Author Organization [facility]YNN WHITE [facility], Main Office Address [address] [place] [address] Assessment No assessment recorded. Plan of Treatment Reminders Order Date Submit Date Provider Last Modified By Organization Details Last Modified Time Details Appointments RESEARCH FOLLOW UP 2024 11:30P Wilmer Levin MD Not available Not available Not available Lab HPV DNA, high-ris k, anal [address], [address] [place] [address], [id number], 03/09/2025 16:00:58 pap, LB, anal [address], [address] [place] [address], [address], 03/09/2025 16:01:16 chlamydi a + gonorrhe a DNA panel, unspecif ied specimen [address], [address] [place] [address], [id number], 03/09/2025 16:00:03 culture, throat [address], [address] [place] [address], [address], 03/09/2025 16:02:43 Referral None recorded . Procedures None recorded . Surgeries None recorded . Imaging electroc ardiogra m 2023 024 cmartorell Main Office, [address] [place] [address], [phone], 07/15/2024 15:47:38 Medication Orders clotrima zole 10 mg klaudia 2024 025 [id number] [address] [place], [address], 03/09/2025 10:06:11 fluconaz ole 100 mg tablet 2024 025 [facility], [address] [place] [address], [address], 03/09/2025 10:06:10 Biktarvy 50 mg-200 mg-25 mg tablet 2024 025 cmartorell [facility], [address] [place] [address], [address], 03/09/2025 13:04:37 clotrima zole 10 mg klaudia 2024 025 [facility], [address] [place], [address], 12/30/2024 16:32:25 Biktarvy 50 mg-200 mg-25 mg tablet 2024 025 [facility], [address] [place] [address], [address], 12/30/2024 16:32:25 clotrima zole 10 mg klaudia 2024 025 [facility]acy #2071, [address] [place], [address], 11/25/2024 13:20:54 Benadryl 25 mg capsule 2024 025 [facility] #2071, [address] [place], [address], 11/25/2024 13:20:55 Biktarvy 50 mg-200 mg-25 mg tablet 2024 025 [facility]2071, [address] [place], [address], 11/25/2024 13:20:54 clotrima zole 10 mg klaudia 2024 025 [facility] [address] [place], [address], 10/21/2024 14:29:45 Biktarvy 50 mg-200 mg-25 mg tablet 2024 025 [id number] [address] [place], [address], 10/21/2024 14:30:45 Patient TargetsNo targets recorded. Patient Instructions Encounter Date Encounter Id Patient Instructions Last Modified By Organization Details Last Modified Time 10/21/2024 [id number] Clotrimazole Oral Lozenge (CLOTRIMAZOLE LOZENGE - MUCOUS [...] atori es - Labor atory - [address] [facility], [place] [address] Not Available [facility] [address] [place], [address], 03/10/2025 08:50:56 03/09/20 25 03/09/2025 CHLAM YDIA TRACH OMATI S AND NEISS ERIA GONOR RHOEA E MOLEC ULAR STUDY neisseria gonorrhoeae PCR Negati ve negati ve Not Available [facility] [address] [place], [address], 03/10/2025 08:50:56 03/09/20 25 03/09/2025 CHLAM YDIA TRACH OMATI S AND NEISS ERIA GONOR RHOEA E MOLEC ULAR STUDY chlamydia trachomatis PCR Negati ve negati ve Not Available [facility] [address] [place], [address], 03/10/2025 08:50:56 03/09/20 25 03/09/2025 CULTU RE MISCE LLANE OUS .note See Note Origi nal Order ing Provi carlito: DELGADO IA T MARTO CHRISTOPHER [facility] - Labor atory - [address] [facility], [facility] [place] [address] Not Available [facility] [address] [place], [address], 03/10/2025 11:21:36 03/09/20 25 03/09/2025 CULTU RE MISCE LLANE OUS miscellaneou s culture YEAST abnormal Yeast Not Available [facility] [address] [place] [address], [address], 03/10/2025 11:21:36 03/09/20 25 03/09/2025 CULTU RE MISCE LLANE OUS .note See Note Origi nal Order ing Provi carlito: DELGADO CARRANZA T MARTO CHRISTOPHER [facility] - Labor atory - [address] [facility], [facility] [place] [address] Not Available [facility] [address] [place] [address], [address], 03/10/2025 11:26:38 03/09/20 25 03/09/2025 CULTU RE MISCE LLANE OUS miscellaneou s culture YEAST abnormal Yeast Not Available [facility] [address] [place] [address], [address], 03/10/2025 11:26:38 03/09/20 25 03/09/2025 CULTU RE MISCE LLANE OUS .note See Note Origi nal Order ing Provi carlito: DELGADO IA T MARTO CHRISTOPHER [facility] - Labor atory - [address] [facility], [facility] [place] [address] Not Available [facility] [address] [place] [address], [address], 03/10/2025 13:02:10 06/30/20 25 03/09/2025 CULTU RE MISCE LLANE OUS miscellaneou s culture YEAST abnormal Yeast Not Available [facility] [address] [place], [address], 03/10/2025 13:02:10 03/09/20 25 03/09/2025 CULTU RE FUNGU S, OTHER THAN SKIN HAIR OR NAILS .note See Note Origi nal Order ing Provi carlito: DELGADO SCHAEFFER CHRISTOPHER [facility] - Labor atory - [address] [facility], [place] [address], [facility] [place] [address] Not Available [facility] [address] [place] [address], [address], 03/16/2025 14:09:09 03/09/20 25 03/09/2025 CULTU RE FUNGU S, OTHER THAN SKIN HAIR OR NAILS culture, fungus YEAST abnormal Yeast Not Available [facility] [address] [place] [address], [address], 03/16/2025 14:09:09 03/09/20 25 03/09/2025 THINP REP CYTOL OGY WITH HPV, ANAL .note See Note Origi nal Order ing Provi carlito: DELGADO SCHAEFFER CHRISTOPHER [facility] - Labor atory - [address] [facility], [place], [place] [address] Not Available [facility] [address] [place] [address], [address], 03/17/2025 14:23:11 03/09/20 25 03/09/2025 THINP REP CYTOL OGY WITH HPV, ANAL scan result See Scanne d Result Not Available [facility] [address] [place] [address], [address], 03/17/2025 14:23:11 03/09/20 25 03/09/2025 NON-G YNECO LOGIC CYTOL OGY .note See Note Origi nal Order ing Provi carlito: DELGADO TAYLORO CHRISTOPHER [facility] - Labor atory - [address] [facility], [place], [place] [address] Not Available [facility] [address] [place] [address], [place], [address], 03/17/2025 14:32:10 03/09/20 25 03/09/2025 NON-G YNECO LOGIC CYTOL OGY final diagnosis Specim en sent to [facility] for Anal cytolo gy with HPV CoTest . Their interp retati on is as follow s: Anal, Rectu m (Thin Prep) : Satis facto ry for Evalu ation . Trans forma tion zone compo nents absen t. Negat marj for Intra epith elial Lesio n or Malig nick . Discl aimer This test has been modif ied from the manu actur er's instr uctio ns. Its perfo rmanc e jurgen cteri stics were deter mined by [facility] in a toribio r consi stent with CLIA requi remen ts. This test has not been clear ed or appro deborah by the U.S. Food and Drug Admin istra tion Repor t tamra d elect terry correia by: Qi judge M.D. on 16 Mar 2025 at 13:55 at [facility] Labor atori es, [address], [place] (CLIA [id number] ) HPV Anal Detec t/Gen otypi ng, PCR: High Risk HPV testi ng resul ts are Negat marj. See speci fic genot ype resul ts below . HPV with Genot yping , PCR, ThinP rep: HPV High Risk Type 16, PCR: Negat marj HPV High Risk Type 18, PCR: Negat marj HPV other High Risk types , PCR: Negat marj Other High Risk HPV types inclu de: 31, 33, 35, 39, 45, 51, 52, 56, 58, 59, 66, and 68 This test was order ed in the diane xt of a [facility] Non-G YN Cytol ogy case; this resul t shoul d be inter prete d withi n the diane xt of the Non-G YN cytol ogy repor t. Resul lucho 12 Mar 2025 at 17:00 by [facility] Labor atori es, [address], [place] (CLIA [id number] ) Full repor t attac hed. Elect terry barboza d by Sintia wu MD on 025 at 2:31 PM Not Available [facility] [address] [place] [address], [address], 03/17/2025 14:32:10 03/09/20 25 03/09/2025 NON-G YNECO LOGIC CYTOL OGY disclaimer Unless otherw ise specif ied, all tissue is 10% NB formal in fixed and paraff in embedd ed. Techn ical cytop athol ogy servi surekha provi ded by Miguelina woods of [facility], at [address] [facility] [address], [place] [address] (CLIA # [id number] /Joe orourke MD, Medic al Dire tor.) Not Available [facility] [address] [place] [address], [address], 03/17/2025 14:32:10 03/09/20 25 03/09/2025 CULTU RE FUNGU S, OTHER THAN SKIN HAIR OR NAILS .note See Note Origi nal Order ing Provi carlito: DELGADO Rogel MARTO CHRISTOPHER [facility] - Labor atory - [address] [place] [address], [place], [facility] [address] Not Available [facility] [address] [place] [address], [address], 03/18/2025 08:10:44 03/09/20 25 03/09/2025 CULTU RE FUNGU S, OTHER THAN SKIN HAIR OR NAILS culture, fungus CANDID A ALBICA NS abnormal Julianna da albic ans Edite d resul t: Previ ously repor lucho as Yeast on 025 at 1407 EDT. Not Available [facility] [address] [place] [address], [address], 03/18/2025 08:10:44 06/18/20 24 06/04/2024 US, abdom en, compl ete No observ ation record ed. [email or web address] [place], [address], 06/18/2024 11:12:25 07/15/20 24 07/15/2024 elect aparna butts am No observ ation record ed. [email or web address] Main Office [address] [place], [address], 07/15/2024 17:12:05 07/17/20 24 elect aparna butts am No observ ation record ed. [email or web address] Main Office [address] [place], [address], 07/17/2024 14:15:04 Result Notes None recorded. Problems Name Problem SNOMED Code Status Onset Date Resolution Date Notes Provider Name and Address Organization Details Recorded Time Asthma 552364786 Active 2006 Asthma; snomeddesc ription: Asthma; Report Immunity to Registry: Yes; Asthma; Report Immunity to Registry: Yes; ReasonDate : 10/13/2019 ; ; Start Date : 10/13/2019 Asthma; snomeddesc ription: Asthma; Report Immunity to Registry: Yes; Not Available [facility] 4 06:58:53 Male hypogonad ism 66487101 Active 2012 Male hypogonadi sm; snomeddesc ription: Male hypogonadi sm; Report Immunity to Registry: Yes; Not Available [facility] 4 06:58:53 Diarrhea 63274558 Active 2006 Diarrhea; snomeddesc ription: Diarrhea; Report Immunity to Registry: Yes; Diarrhea, unspecifie d; snomeddesc ription: Diarrhea; Report Immunity to Registry: Yes; Not Available [facility] 4 06:58:53 Substance abuse 76080413 Active 2006 Substance abuse; snomeddesc ription: Substance abuse; Report Immunity to Registry: Yes; Notes: opiate/suad jolene/benzo ; Not Available [facility] 4 06:58:53 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 Human immunodefi ciency virus [HIV] disease; snomeddesc ription: Human immunodefi ciency virus infection; Report Immunity to Registry: Yes; Human immunodefi ciency virus infection; snomeddesc ription: Human immunodefi ciency virus infection; Report Immunity to Registry: Yes; Not Available [facility] 4 06:58:53 Steatotic liver disease 200638382 Active 2006 Steatosis of liver; snomeddesc ription: Steatosis of liver; Report Immunity to Registry: Yes; Notes: u/s 2021; Fatty (change of) liver, not elsewhere classified ; snomeddesc ription: Steatosis of liver; Report Immunity to Registry: Yes; Notes: u/s 2021; Not Available [facility] 4 06:58:53 Herpesvir us infection 38194062 Active 2009 Herpesvira l infection, unspecifie d; snomeddesc ription: Herpes simplex; Report Immunity to Registry: Yes; Notes: HSV 1 pos serology; HSV 2 neg serology; Not Available [facility] 4 06:58:53 Fibromyos itis 86371861 Active 2006 Myalgia and myositis, unspecifie d; snomeddesc ription: Fibromyalg ia; Report Immunity to Registry: Yes; Notes: Chronic pain multiple/c hronic back pain; Not Available [facility] 4 06:58:53 Herpes simplex 21689772 Active 2009 Herpes simplex; snomeddesc ription: Herpes simplex; Report Immunity to Registry: Yes; Notes: HSV 1 pos serology; HSV 2 neg serology; Not Available [facility] 4 06:58:54 Kidney stone 76090489 Active 2001 Calculus of kidney; snomeddesc ription: Kidney stone; Report Immunity to Registry: Yes; Kidney stone; snomeddesc ription: Kidney stone; Report Immunity to Registry: Yes; Not Available [facility] 4 06:58:54 History of calculus of kidney 925257847 Active 2001 History of calculus of kidney; snomeddesc ription: History of calculus of kidney; Report Immunity to Registry: Yes; Not Available [facility] 4 06:58:54 Type B viral hepatitis 11519175 Active 2006 Type B viral hepatitis; snomeddesc ription: Type B viral hepatitis; Report Immunity to Registry: Yes; Notes: core ab pos; s ag neg; s ab neg HBV vL nondetecte d 2016; 2017; Not Available [facility] 4 06:58:54 Hyperplas ia of prostate 956565753 Active 2014 Hyperplasi a of prostate, unspecifie d, without urinary obstructio n and other lower urinary symptoms (LUTS); snomeddesc ription: Hyperplasi a of prostate; Report Immunity to Registry: Yes; Hyperplas ia of prostate; snomeddesc ription: Hyperplasi a of prostate; Report Immunity to Registry: Yes; Not Available [facility] 4 06:58:54 Anxiety 41839238 Active 1996 Anxiety; snomeddesc ription: Anxiety; Report Immunity to Registry: Yes; Not Available [facility] 4 06:58:54 Testicula r hypofunct ion 048071776 Active 2012 Other testicular hypofuncti on; snomeddesc ription: Male hypogonadi sm; Report Immunity to Registry: Yes; Not Available [facility] 4 06:58:54 Seasonal allergic rhinitis 341755188 Active 2012 Other seasonal allergic rhinitis; snomeddesc ription: Seasonal allergy; Report Immunity to Registry: Yes; Notes: hx nasal congestion ; Not Available [facility] 4 06:58:54 Onychomyc osis due to dermatoph yte 511390112 Active 2017 Tinea unguium; snomeddesc ription: Onychomyco sis; Report Immunity to Registry: Yes; Notes: feet digits; Not Available [facility] 4 06:58:55 Sleep apnea 53513214 Active 1999 Sleep apnea; snomeddesc ription: Sleep apnea; Report Immunity to Registry: Yes; Unspecifi ed sleep apnea; snomeddesc ription: Sleep apnea; Report Immunity to Registry: Yes; Not Available [facility] 4 06:58:55 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 97300602 Active 2006 Other psychoacti ve substance abuse, uncomplica lucho; snomeddesc ription: Substance abuse; Report Immunity to Registry: Yes; Notes: opiate/suad jolene/benzo ; Not Available [facility] 4 06:58:55 Viral hepatitis B without hepatic coma 142285820 Active 2006 Unspecifie d viral hepatitis B without hepatic coma; snomeddesc ription: Type B viral hepatitis; Report Immunity to Registry: Yes; Notes: core ab pos; s ag neg; s ab neg HBV vL nondetecte d 2016; 2017; Not Available [facility] 4 06:58:55 Blood chemistry outside reference range 689939517 Active 2012 Other specified abnormal findings of blood chemistry; snomeddesc ription: Decreased testostero ne level; Report Immunity to Registry: Yes; Notes: hypogoandi sm; Not Available [facility] 4 06:58:55 Arthritis 4829083 Active 1998 Arthritis; snomeddesc ription: Arthritis; Report Immunity to Registry: Yes; Notes: Osteoatrth ris multiple; Not Available [facility] 4 06:58:55 History of urinary stone 072417189 Active 2001 Personal history of urinary calculi; snomeddesc ription: History of calculus of kidney; Report Immunity to Registry: Yes; Not Available [facility] 4 06:58:56 Fibromyal mika 525223431 Active 2006 Fibromyalg ia; snomeddesc ription: Fibromyalg ia; Report Immunity to Registry: Yes; Notes: Chronic pain multiple/c hronic back pain; Not Available [facility] 4 06:58:56 Lyme disease 97562016 Active 2017 Lyme disease; Report Immunity to Registry: Yes; Notes: tx cefuroxime x14 d (hx all Doxy); Not Available [facility] 4 06:58:56 Headache 11631467 Active 2008 Headache; snomeddesc ription: Headache; Report Immunity to Registry: Yes; Notes: migraine; Headache; snomeddesc ription: Headache; Report Immunity to Registry: Yes; Notes: migraine; Not Available [facility] 4 06:58:56 Hypertens marj disorder 97536560 Active 2017 Hypertensi ve disorder; snomeddesc ription: Hypertensi ve disorder; Report Immunity to Registry: Yes; Not Available [facility] 4 06:58:56 Arthropat hy 729467414 Active 1998 Arthropath y, unspecifie d, site unspecifie d; snomeddesc ription: Arthritis; Report Immunity to Registry: Yes; Notes: Osteoatrth ris multiple; Not Available [facility] 4 06:58:56 Essential hypertens ion 36412015 Active 2017 Essential (primary) hypertensi on; snomeddesc ription: Hypertensi ve disorder; Report Immunity to Registry: Yes; Not Available [facility] 4 06:58:57 Testoster one level below reference range 360606706 Active 2012 Decreased testostero ne level; snomeddesc ription: Decreased testostero ne level; Report Immunity to Registry: Yes; Notes: hypogoandi sm; Not Available [facility] 4 06:58:57 Insomnia 826579036 Active 1996 Insomnia; Report Immunity to Registry: Yes; Not Available [facility] 4 06:58:57 Anxiety state 315175120 Active 1996 Anxiety state, unspecifie d; snomeddesc ription: Anxiety; Report Immunity to Registry: Yes; Not Available [facility] 4 06:58:57 Onychomyc osis 989813292 Active 2017 Onychomyco sis; snomeddesc ription: Onychomyco sis; Report Immunity to Registry: Yes; Notes: feet digits; Not Available [facility] 4 06:58:57 Chronic hepatitis C 646748878 Active 2006 Chronic hepatitis C without mention [...] neg 2015;2017; 12/2021 F2 ; Not Available [facility] 4 06:58:57 Depressiv e disorder 26143349 Active 1996 Depressive disorder, not elsewhere classified ; snomeddesc ription: Depressive disorder; Report Immunity to Registry: Yes; Depressiv e disorder; snomeddesc ription: Depressive disorder; Report Immunity to Registry: Yes; Not Available [facility] 4 06:58:58 Seasonal allergy 914094639 Active 2012 Seasonal allergy; snomeddesc ription: Seasonal allergy; Report Immunity to Registry: Yes; Notes: hx nasal congestion ; Not Available [facility] 4 06:58:58 Loss of appetite 87025975 Active 2012 Anorexia; snomeddesc ription: Loss of appetite; Report Immunity to Registry: Yes; Loss of appetite; snomeddesc ription: Loss of appetite; Report Immunity to Registry: Yes; Not Available [facility] 4 06:58:58 Seizure 93993848 Active 2000 Seizure; snomeddesc ription: Seizure; Report [...] Report Immunity to Registry: Yes; Not Available [facility] 4 06:58:58 Problem Notes None recorded. Medical Equipment None Reported. Allergies Allergen ID Allergen Name Allergen Category Reaction Reaction Severity Criticality Documentation Date Start Date Code Code System Note Provider Name and Address Organization Details Recorded Time 714 Reglan medicatio n Not available Not available Not available 10/31/20232012 9230 RxNorm Comme nt: adver se_ev ent_t ype: 80164 8002; ; Not Available [facility] 4 06:50:47 715 Motrin medicatio n Not available Not available Not available 10/31/2023201248 8 RxNorm Comme nt: adver se_ev ent_t ype: 98133 8002; ; Not Available [facility] 4 06:50:47 716 doxycycli ne Not available Not available Not available Not available 10/31/20232017 3640 RxNorm Comme nt: adver se_ev ent_t ype: 26232 8002; ; Not Available [facility] 4 06:50:47 Medications Name Sig Start Date [...] t Available fluconazo le 100 mg tablet TOME 1 TABLETA POR V A ORAL TODOS LOS D FOR 21 DAYS active Not Available Not Available No [...] 5 mg tablet TOME 1 TABLETA POR VIA ORAL ITALO VECES AL CHI 90 active Not Available Not Available No t [...] DAILY FOR 3 DAYS STARTING ON Sunday 5 active Not Available Not Available No t [...] 30; VACCINE_ IND: no; SU_FULL_ NAME: Cheryl csales; Not Available Not Available Not Available amlodipin [...] BAHMAN TABLETA POR V A ORAL CADA DOCE HORAS NEEDED FOR SEVERE PAIN FOR UP TO 14 DAYS active Not [...] Available Liquid Nutrition oral 0 Quantity : 79615; Duration : 30; 0 refill(s ) 09/30 [...] 30; VACCINE_ IND: no; SU_FULL_ NAME: Cheryl Tayolrsusan scales; Not Available Not Available Not Available [...] Not Available Not Available No t Available amoxicill in 500 mg-potass ium clavulana te 125 mg tablet TOME 1 TABLETA POR V A ORAL CADA 12 HORAS POR 7 D active Not Available Not Available No [...] Reed; Not Available Not Available Not Available Ibeth [...] Not Available Not Available Not Available Flulaval 6276-7838 45 mcg (15 mcg x 3)/0.5 mL [...] SU_FULL_ NAME: Cheryl Martsusan scales; VIS_DATE : 05:00:00 .0; Not Available [...] Pneumoco ccal conjugat e PCV20, polysacc haride [id number] conjugat e, adjuvant , PF; Not Available Not Available Not Available Vitals Date Recorded Heart rate Body temperature Body weight Systolic And Diastolic Provider Name and Address Organization Details Last Updated DateTime 10/21/2024 98 /min 98.2 [degF] 42942.26 g 118/97 mm[Hg] Lexis LEVIN MD [facility] 10/21/2024 12:04:23 Date Recorded Body height Heart rate Respiratory rate Body mass index (BMI) Body weight Systolic And Diastolic Provider Name and Address Organization Details Last Updated DateTime 162.56 cm 81 /min 20 /min 24.9 kg/m2 40930.8 9 g 136/89 mm[Hg] Cheryl Levin MD [address] [place] [address], [phone], LYNN LEVIN MD [facility] 5 15:01:34 Date Recorded Heart rate Body mass index (BMI) Body weight Respiratory rate Systolic And Diastolic Provider Name and Address Organization Details Last Updated DateTime 12/30/2024 92 /min 26.1 kg/m2 70220.04 g 16 /min 108/83 mm[Hg] Cheryl Levin MD [address] [place], [phone], LYNN LEVIN MD [facility] 5 16:33:39 Date Recorded Body height Provider Name an Address Organization Details Last Updated DateTime 12/30/2024 162.56 cm Jany Delvalle LYNN LEVIN MD [facility] 12/30/2024 15:08:38 Date Recorded Body height Heart rate Respiratory rate Body temperature Body mass index (BMI) Body weight Systolic And Diastolic Provider Name and Address Organization Details Last Updated DateTime 162.56 cm 103 /min 18 /min 98.4 [degF] 25.1 kg/m2 43421.4 9 g 110/80 mm[Hg] Aleksandra Harrisalexandr LEVIN MD [facility] 5 11:09:16 Date Recorded Body temperature Body mass index (BMI) Body weight Respiratory rate Heart rate Systolic And Diastolic Provider Name and Address Organization Details Last Updated DateTime 98.7 [degF] 20.6 kg/m2 33143.0 8 g 20 /min 87 /min 120/80 mm[Hg] Cheryl Levin MD [address] [place] [address], [phone], LYNN LEVIN MD [facility] 15:46:02 Date Recorded Body height Provider Name an d Address Organization Details Last Updated DateTime 07/15/2024 162.56 cm Jerome Centeno LYNN LEVIN MD [facility] 07/15/2024 15:22:29 Social History None recorded. [...] Time Meningococcal MCV4O 9 completed Not Available [facility] 10/31/2023 06:54:49 zoster live 9 completed Not Available [facility] 10/31/2023 06:54:50 Influenza, split virus, quadrivalent, preservative 9 completed Not Available [facility] 10/31/2023 06:54:50 Influenza, split virus, quadrivalent, preservative 8 completed Not Available [facility] 10/31/2023 06:54:50 Influenza, split virus, quadrivalent, preservative 0 completed Not Available [facility] 10/31/2023 06:54:50 Past Encounters Encounter ID Performer Location Encounter Start Date Encounter Closed Date Diagnosis/Indication Diagnosis SNOMED-CT Code Diagnosis ICD10 Code Diagnosis Note [id number] Cheryl Levin MD Main Office [address] [place] [address] 05/25/2023 09:48:40 06/27/2023 09:16:16 Human immunodeficiency virus infection 02016868 B20 HIV. Continue Biktarvy 1 tab po [...] reviewed 1506 Cheryl Levin MD Main Office [address] [place] [address] 08/24/2023 09:33:00 08/24/2023 10:46:09 Human immunodeficiency virus infection 85661535 B20 HIV. Continue Biktarvy 1 tab po [...] /Tivicay.s afe sex.labs Septemberlan of care reviewed [id number] Cheryl Levin MD Main Office [address] [place] [address] 11/12/2023 11:34:42 11/16/2023 15:00:47 Human immunodeficiency virus infection 24857668 B20 HIV.Contin ue Biktarvy 1 tab po qd.U=Upt aware of PreP availabili ty.condom use.plan of care reviewed Adult [facility] th examination [id number] Z00.00 88524 Cheryl Levin MD Main Office [address] [place] [address] 11/21/2023 10:59:43 11/23/2023 14:55:21 42622 Cheryl Levin MD Main Office [address] [place] [address] 01/14/2024 09:27:39 01/16/2024 13:51:41 [id number] Cheryl Levin MD Main Office [address] [place] [address] 01/16/2024 10:24:39 01/16/2024 11:50:10 Human immunodeficiency virus infection 81670958 B20 HIV.Contin ue Biktarvy 1 tab po qd.U=Upt aware of PreP availabili ty.condom use.labs todayplan of care reviewed Candidiasis of mouth 797 82285 B37.0 nystatin 5cc po qid x 14 days. swish and spit.call with any side effects.ba cterial/fu ngal swab obtained. 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 32180 Cheryl Levin MD Main Office [address] [place] [address] 02/14/2024 12:00:04 02/14/2024 12:24:19 Human immunodeficiency virus infection 55131040 B20 HIV.Contin ue Biktarvy 1 tab po qd.U=Upt aware of PreP availabili ty.DoxyPEP reviewedco ndom use.labs todayplan of care reviewed Methicilli n resistant Staphylococcus aureus infection 435759185 A49.02 swab culture 01/2024 Candidiasi s of the esophagus 70680472 B37.81 sandy glabratafl uconazole 100mg po qd x 14 dayscall with any side effects. Weight loss 89487788 R63 .4 contributi ng factor sandy, MRSA, HIV among othermight benefit from Serostim.w ill review with himG tube 55503 Cheryl Levin MD Main Office [address] [place] [address] 02/21/2024 11:08:05 02/21/2024 12:09:56 Human immunodeficiency virus infection 61864445 B20 HIV.Contin ue Biktarvy 1 tab po qd.complia nce reviewedU= Upt aware of PreP availabili ty.DoxyPEP reviewedco ndom use.labs todayplan of care reviewed Candidiasi s of the esophagus B37.81 sandy glabratato complete fluconazol e 100mg po bid x 14 days: (10mg/ml) 10ml by G tube bidcall with any side effects. Methicilli n resistant Staphylococcus aureus infection 258775041 A49.02 swab culture urr ently on Bactrim oral suspension (200mg- 40mg/5ml) since 02/15-20ml q 12 hrs G tube x 10 days Cachexia a ssociated with AIDS 693645881 B20 R64 weight loss. frail. progressin g.contribu ting factor sandy, MRSA, HIV among other. G tubeSerost im 6mg sq qd will be prescribed with the goal of helping w weight gain, increase muscle mass gain, and increase enduranceh e has visiting nurse who could assist with daily injections . 17122 Cheryl Levin MD Main Office [address] [place] [address] 02/25/2024 10:24:53 02/25/2024 11:09:27 Human immunodeficiency virus infection 54578796 B20 HIV.Contin ue Biktarvy 1 tab po qd.compljordon copelande reviewedU= Ucondom use.labs todayplan of care reviewed Candidiasi s of the esophagus B37.81 sandy glabratawi ll continue fluconazol e 200 mg po qd x 14 days: (10mg/ml) 10ml by G tube QD;will on next appointmen t for further tx va suppressio n tx.call with any side effects. Cachexia a ssociated with AIDS 837441079 B20 R64 weight loss. frail. progressin g.approved Serostim 6mg sq qd; awaiting delivery to the office. will be prescribed with the goal of helping w weight gain, increase muscle mass gain, and increase enduranceh e has visiting nurse who could assist with daily injections .ensure tidmegace 625 mg qd. Methicilli n resistant Staphylococcus aureus infection 968938771 A49.02 swab culture 01/2024will complete 10 days of Bactrim oral suspension (200mg- 40mg/5ml) since 02/15-20ml q 12 hrs G tube on 02/27/24 [id number] Cheryl Levin MD Main Office [address] [place] [address] 03/14/2024 10:24:00 03/14/2024 10:29:25 Cachexia associated with AIDS 316420145 R64 B20 gained 2 pounds. probably improved sandy esophagiti s 2nd to inhaled steroids.S Tart Serostim 6mg s/c qd abdomen. first dose administer ed today. Tolerated well; goalis to increase weight, endurance and muscle massHe will have CYBER OPERATOR and nurse help with daily injections .potential side effects reviewed.t o call with any concernshe will pickle solution maker Megace today, and start it as well(G tube) qd to increase apetitte Human immunodeficiency virus infection 96858608 B20 HIV.Contin ue Biktarvy 1 tab po qd.complia nce reviewed Candidiasi s of the esophagus 27959403 B37.81 sandy glabratawi ll continue 2 more weeks of fluconazol e 200 mg po qd x 14 days: (10mg/ml) 10ml by G tube QD;might benefit from qw suppressio n tx.call with any side effects. 85137 Cheryl Levin MD Main Office [address] [place] [address] 04/18/2024 09:52:00 04/18/2024 11:19:01 Cachexia associated with AIDS 826665334 R64 B20 124 lbs. gained weightcont inue Serostim 6mg s/c qd abdomen. goalis to increase weight, endurance and muscle masscontin ue Megace G tube qdCNA and nurse helping with compliance and tx.potenti al side effects reviewed.t o call with any concerns Human immunodeficiency virus infection 08291853 B20 HIV.Contin ue Biktarvy 1 tab po qd.padmini hoffman reviewedla bs today Candidiasi s of the esophagus 04226944 B37.81 sandy glabratawi ll continue fluconazol e 200 (10ml) mg G tube qw for suppressio n tx.call with any side effects. Aspiration pneumonia 422 859251 J69.0 get discharge summaryon antibiotic ;eat standing or sitting; [place] [address] Cheryl Levin MD Main Office [address] [place] [address] 05/20/2024 10:17:53 05/20/2024 12:44:49 Cachexia associated with AIDS 276240200 R64 B20 continue Serostim 6mg s/c qd abdomen. goal is to increase weight, endurance and muscle masscontin ue Megace G tube qd 5cc qdCNA and nurse helping with compliance and tx.potenti al side effects reviewed.t o call with any concerns Human immunodeficiency virus infection 38438846 B20 HIV.Contin ue Biktarvy 1 tab po qd.padmini hoffman reviewedla bs today Candidiasi s of the esophagus 98400497 B37.81 sandy glabrataho ld fluconazol e for nowSTART 1 tab po bid x 21 says for esophageal sandy glabrata.c all with any side effects. 36282 Cheryl Levin MD Main Office [address] [place] [address] 06/18/2024 10:10:09 06/18/2024 11:12:33 Cachexia associated with AIDS 042243369 R64 B20 continue Serostim 6mg s/c qd abdomen. goal is to increase weight, endurance and muscle massCNA and nurse helping with compliance and tx.megace on holdpotent ial side effects reviewed.t o call with any concerns Human immunodeficiency virus infection 06404998 B20 HIV.Contin ue Biktarvy 1 tab po qd.padmini hoffman reviewedla bs today Inflammato ry disease of liver 911404480 K75.9 Suspect 2nd to concomitan t medication s. ongoingdo not re-start fluconazol e nor megacenega tive infectious and non-infect ious workupto call or ER if jaundice, abd pain, n/v/d marce gother History of calculus of kidney 159818751 Z87.442 u/s 05/[address] scan 02/2024hydr ation Aspiration pneumonia 422 627969 J69.0 s/p aspiration on CT AngioNPO per instructio n given to him in hospital; nutrition by G tubes/p (ceftriaxo ne,Azithro ,Flagyl while in Hospital;d ischarged on azithro and cefpodoxim e x 3 days which he completed. leg elevationa void sedating meds as much as possible Deep venou s thrombosis of lower extremity 173778815 I82.409 left lower extremity doppler showed DVT of gastrocnem ius vein;on tx w w Eliquis bid . Pulmonary embolism [address] Angio was positive for Acute lobar PEs/p heparin; ongoing Eliquis bidmed list reviewed.n o drug use for years. not on maintenanc e tx.denies current ETOH use. 93053 Cheryl Levin MD Main Office [address] [place] [address] 07/15/2024 15:10:10 07/15/2024 15:45:30 Cachexia associated with AIDS 887624856 R64 B20 continue Serostim 6mg s/c qd abdomen. goal is to increase weight, endurance and muscle masspotent ial side effects reviewed.t o call with any concerns Human immunodeficiency virus infection 86985445 B20 HIV.Contin ue Biktarvy 1 tab po qd.complia nce reviewedla bs Candidiasi s of the esophagus 22881586 B37.81 on clotrimazo le. swish and spit qd Medication monitoring 39 7552766 Z51.81 62469 Cheryl Levin MD Main Office [address] [place] [address] 10/21/2024 12:22:54 10/21/2024 16:48:51 Cachexia associated with AIDS 498212386 R64 B20 improvedco ntinue Serostim 6mg s/c qd abdomen. goal is to increase weight, endurance and muscle masspotent ial side effects reviewed.m ay start decreasing dose in 1-2 months if further weight gainon Boost protein shakesto call with any concerns Human immunodeficiency virus infection 79317727 B20 HIV.Contin ue Biktarvy 1 tab po qd.padmini hoffman reviewedla bs Candidiasi s of the esophagus 81 on clotrimazo le. swish and spit qd/BID PRN 56387 Cheryl Levin MD Main Office [address] [place] [address] 11/25/2024 11:48:55 11/25/2024 14:20:54 Cachexia associated with AIDS 774335977 R64 B20 improvedco ntinue Serostim 6mg s/c [...] with any concerns Human immunodeficiency virus infection 87984706 B20 HIV.Contin ue Biktarvy 1 tab po qd.padmini hoffman reviewedla bs Candidiasi s of the esophagus .81 off/on; recurrento n clotrimazo le. swish and spit qd/BID PRN for suppressio n Insomnia 025534060 G47.0 0 benadryl capsules requested by patient forinsomni a and itchiness as needed.cor rect use reviewed. 89452 Cheryl Levin MD Main Office [address] [place] [address] 12/30/2024 15:04:38 12/31/2024 09:52:40 Cachexia associated with AIDS 232405714 R64 B20 improvedco ntinue Serostim 6mg s/c [...] with any concerns Human immunodeficiency virus infection 82994801 B20 HIV.Contin ue Biktarvy 1 tab po qd.compljordon hoffman reviewedla bs Candidiasi s of the esophagus 89770684 B37.81 off/on; recurrento n clotrimazo le. swish and spit /BID/TID PRN for suppressio n 05419 Cheryl Levin MD Main Office [address] [place] [address] LYNN REDMAN [address] 03/09/2025 09:16:22 03/09/2025 10:12:30 Cachexia associated with AIDS 078352111 R64 B20 stable/imp roved.cont inue Serostim 6mg s/c qd abdomen. goal is to increase weight, endurance and muscle masspotent ial side effects reviewed.o n Boost protein shakescont inue megace; plan to stop in the next 2-3 monthsto call with any concerns Human immunodeficiency virus infection 15902484 B20 HIV.Contin ue Biktarvy 1 tab po qd.complia nce reviewedla bs Candidiasi s of the esophagus 05009415 B37.81 off/on; recurrento n clotrimazo le. swish and spit /BID/TID PRN for suppressio nSTART Fluconazol e 100mg po qd x 21 days: esophageal sandy; then continue clotrimazo le for suppressio noral swab for sandy/ba cteria obtained Abnormal a nal Papanicolaou smear 349719431 R85.619 Anal PAP sample obtained/p reformed: no abnormalit yGC/chlamy chi rectal done Health Concerns Section Related Observation LastModified by Organization Detai ls LastModified Time None Recorded Concern Status LastModified by Organization Details LastModified Time None Recorded Advance Directives Directive None Recorded Payers Insurance Date Sequence Insurance Name Policy Number Policy Perry Covered Member ID Perry Member ID Guarantor Name 03/10/2025 1 [facility] - DOS ON OR AFTER 2022 - MEDICARE ADVANTAGE [place] (MEDICARE REPLACEMENT/AD VANTAGE - PPO) Benjamin Fall [id number] Benjamin Fall Notes Date Note Type Note [...] VL nondetetcted01/2024 HIV VL nondetcetd;eGFR=76;AST /ALT wnl;11/2023 EY7=765; HIV VLnondetceted; no infections. Cheryl Levin MD [address] [place] [address], [phone], [place] - CHERYL LEVIN MD [facility] 07/15/2024 15:47:48 10/21/2024 text/html HIVOn Biktarvy [...] notify site start date and confirm medication. SAWMILLING OPERATOR in room with his consent. Cheryl Levin MD [address] [place] [address], [phone], [place] - CHERYL LEVIN MD [facility] 10/21/2024 14:34:28 11/25/2024 text/html HIVOn Biktarvy [...] cyst removal in recent weeks. outpatient/day procedure. SAWMILLING OPERATOR in room with his consent. 07/2025 HIV VL nondetceted; ALt/AST wnl; eGFR>60; WV9=218 Cheryl Levin MD [address] [place] [address], [phone], LYNN LEVIN MD [facility] 11/26/2024 15:09:42 12/30/2024 text/html HIVOn Biktarvy 1 tab po qd.reports daily compliance. denies missing dose.thrush. gets on/off and using clotrimazole to treat/suppress.gaining weight: 120lbs ---145lbs --152 lbsno aspirationgetting serostim daily for cachexia,no side effects.might get G tube removed in February 2025.no hospitalizations since he was last seenmed list reviewed. SAWMILLING OPERATOR [facility]. came in today with a a friendVL nondetceted;07/2025 HIV VL nondetceted; ALt/AST wnl; eGFR>60; YR8=438 Cheryl Levin MD [address] [place] [address], [phone], LYNN LEVIN MD [facility] 12/30/2024 16:39:33 03/09/2025 text/html HIVOn Biktarvy 1 tab po qd.reports daily compliance. denies missing dose.thrush ongoing. has flareup today.gets on/off and using clotrimazole to treat/suppress.getting serostim daily for cachexia, helpingno side effects.might get G tube removed in February 2025.med list reviewed. will get anal pap VL nondetceted;02/07/2024 HIV Vl=24; AST =28 ALT 109; eGFR=90;07/2025 HIV VL nondetceted; ALt/AST wnl; eGFR>60; LK3=390 Cheryl Levin MD [address] [place] [address], [phone], LYNN - CHERYL LEVIN MD [facility] 03/09/2025 13:13:07
--- OUTSIDE RECORDS SUMMARY | 2025-03-24 09:38 | XMS_ITS | Clinical Summary ---
Author Organization [facility] Address [address] [place] [address] Care Team Providers Care Data Entry Associate Name Role Phone Zora Arce PA-C Primary Care Provider [phone] Source Comments PLEASE NOTE, if this patient [...] EC tabletIndications:H IV (human immunodeficiency virus infection) ([facility]) Take 1 Tab by mouth once [...] NUTRITION) liquidIndications:H IV (human immunodeficiency virus infection) ([facility]) Take 1 Can by mouth 3 (three) [...] 0.65 % nasal sprayIndications:As thma, intermittent, uncomplicated ([facility]) Place 1 Cornelia into the nostril(s) as needed for congestion. 60 mL 6 016 Active omeprazole (PRILOSEC) [address] capsuleIndications: Dyspepsia Take 1 Cap by mouth every morning before breakfast. Do not crush or chew. 30 Cap 3 016 Active albuterol sulfate hfa (PROAIR HFA) 90 mcg/actuation inhalerIndications: Asthma, intermittent, uncomplicated ([facility]) Inhale 2 Puffs into the lungs every 4 (four) hours as needed for shortness of breath. Int asthma 18 g 6 016 Active Active Problems Problem Noted Date Diagnosed Date Asthma, mild intermittent ([facility]) 05/06/2015 Fibromyalgia 01/27/2015 Generalized anxiety disorder 01/27/2015 Seizure disorder ([facility]) 01/27/2015 Major depressive disorder, r ecurrent, severe without psychotic features ([facility]) 01/27/2015 Overview (01/27/2015): Has therapist at [facility] HIV (human immunodeficiency virus infection) ([facility]) 01/27/2015 Chronic back pain 01/27/2015 Hepatitis C [...] MEDICAID DENTAL Member Subscriber Plan / [facility] Name:Benjamin Fall Relation to Subscriber:Self Name:Benjamin Fall Payer ID:[id number] Group ID:Not on file Type:Medicaid Address: [address] DENTAL Member Subscriber Plan / Payer [facility] Name:Benjamin Fall Relation to Subscriber:Self Name:Benjamin Fall Payer ID:[id number] Group ID:Not on file Type:Other Address: [address] [place] [id number] Care Teams Data Entry Associate Relationship Specialty Start Date End Date Zora Arce PA-C [address] [place] [address] PCP - General 11/05/18
== END 2025-03-24 09:56 | disposition home or self-care (01) ==
LOC: HO.HSM 09:14
PROVIDERS: PCP Student in an Organized Health Care Education/Training Program; Referring Provider Student in an Organized Health Care Education/Training Program; Visit Provider Registered Nurse
DX: G44.209 Tension-type headache, unspecified, not intractable (principal); G25.9 Extrapyramidal and movement disorder, unspecified
CPT/HCPCS: 99214

== ENCOUNTER → 2025-03-24 09:13 | Outpatient (BNVA) | payer OTHER, SELFPAY | PROVIDERS: PCP Student in an Organized Health Care Education/Training Program; Referring Provider Student in an Organized Health Care Education/Training Program; Visit Provider Registered Nurse | DX: Z09 Encounter for follow-up examination after completed treatment for conditions other than malignant neoplasm (principal); G44.209 Tension-type headache, unspecified, not intractable; G25.9 Extrapyramidal and movement disorder, unspecified; R13.10 Dysphagia, unspecified; M54.50 Low back pain, unspecified; M25.512 Pain in left shoulder | CPT/HCPCS: 99212 ==

== ENCOUNTER 2025-04-06 09:54 | Outpatient (REF) | payer OTHER, SELFPAY ==
--- NOTE | ~2025-04-06 | XR_ITS ---
EXAMINATION: XR CHEST CLINICAL INFORMATION: R05.9 - Cough, unspecified COMPARISON: 01/27/2025, 07/21/2024. TECHNIQUE: 2 views of the chest were obtained. FINDINGS: The cardiac, hilar, and mediastinal contours are normal. Lungs are diffusely hyperaerated with flattened hemidiaphragms consistent with COPD. There is new linear opacity in the left lower lobe, possibly atelectasis and/or pneumonia. Lungs otherwise clear. There is no pneumothorax or pleural effusion. There is no focal osseous or soft tissue abnormality. Surgical clips overlie the left dorsal paravertebral region at the level of the hilum. XR/XR chest 2V IMPRESSION: 1. COPD. 2. New linear opacity left lower lobe, possibly atelectasis and/or pneumonia. Electronically signed by: Kj Garnica MD 04/06/2025 10:58 AM EDT
== END 2025-04-06 09:55 | disposition home or self-care (01) ==
LOC: HO.XRAY 09:54
PROVIDERS: PCP Student in an Organized Health Care Education/Training Program; Visit Provider Nurse Practitioner Family
DX: J45.909 Unspecified asthma, uncomplicated (principal); Z21 Asymptomatic human immunodeficiency virus [HIV] infection status; R05.9 Cough, unspecified; R13.10 Dysphagia, unspecified
CPT/HCPCS: 71046; 99212

== ENCOUNTER 2025-04-06 09:54 | Outpatient (AMB) | payer OTHER, SELFPAY ==
--- NOTE | 2025-04-06 09:56 | MHC.OFFVIS ---
Vital Signs 04/06/25 09:57 Height 5 ft 6 in Weight 143 lb 4.807 oz BMI 23.1 BP 110/58 L Blood Pressure Location Rt brachial Position Sitting Pulse 92 Pulse Source Pulse Oximeter Pulse Oximetry (%) 93 Oxygen Delivery Method Room Air Intake Visit Reasons: Asthma Allergies Seasonal Allergies Allergy (Intermediate, Verified 04/06/25 10:01) Eye Drainage codeine (From Tylenol-Codeine #3) Allergy (Mild, Verified 04/06/25 10:01) Rash levofloxacin (From Levaquin) Allergy (Mild, Verified 04/06/25 10:01) Rash metoclopramide (From Reglan) Allergy (Mild, Verified 04/06/25 10:01) Rash acetaminophen (Tylenol-Codeine #3) Allergy (Unknown, Verified 04/06/25 10:01) Rash Penicillins (PENICILLINS) Allergy (Unknown, Verified 04/06/25 10:01) Rash ibuprofen (From Motrin) Adverse Reaction (Unknown, Verified 04/06/25 10:01) Reflux HPI HPI Asthma: Details: Benjamin is a pleasant 60 year old male, former minimal smoker, moderate persistent asthma, h/o chronic respiratory failure with hypoxia has home oxygen not currently using ([employer]), 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 He is accompanied by [employer]. There was prior question if dysphagia is contributing to aspiration, previously thought MBSS was going to be scheduled however this has yet to be ordered. At the last visit, he was switched to nebulized budesonide which he has been using with good effect, however would like nebulized albuterol due to difficulties using inhaler. Today he reports 2-3 week h/o productive cough with yellowish green sputum. Denies chest congestion, fevers or chills. [facility] Medical History (Updated 03/24/25 @ 09:40 by Nat Bueno CNP) Fibromyalgia Hepatitis C virus infection without hepatic coma Myalgia History of pulmonary embolism Lower urinary tract symptoms Hypogonadism in male Low serum cortisol level Adrenal hyperplasia Osteoporosis Height loss HIV (human immunodeficiency virus infection) Asthma Dysphagia Adult failure to thrive Adult failure to thrive Multiple rib fractures History of empyema of pleura (01/05/23) Hypertension Closed fracture of leg Hepatitis C Kidney stones Pleuritic chest pain Pneumonia Substance abuse Hemorrhoids Depression HIV (human immunodeficiency virus infection) Asthma Surgical History H/O hemorrhoidectomy Family History Maternal Grandmother Lung cancer Maternal Aunt Lung cancer Mother Lung cancer Social History Household Members: Caregiver Household Members Other:: [employer]SEMBL[employer] Housing: Apartment Do you presently have visiting nurse or other home services: Yes Alcohol intake: never Patient Tobacco Use Status: Former Tobacco user Tobacco use type: Cigarette e-Cigarette/Vaping Use: Never Used Second Hand Smoke Exposure: No Substance Use Type: Crack/Cocaine Advance Directives Date on File: 04/25/21 service: No Current occupational status: disabled Current occupation: [email or web address] Gender identity: Male Review of Systems Const Denies chills, Denies excessive sweating, Reports fatigue, Denies fever(s), Denies headache(s), Denies night sweats and Reports weakness Eyes Denies dry eyes, Denies irritation and Denies itchy eyes ENT Reports Normal hearing present, Reports dysphagia, Denies headache(s), Denies nasal congestion, Denies nasal discharge and Denies post nasal drip Card Denies chest pain, Denies chest pain at rest, Denies chest pain with activity, Denies claudication, Denies leg edema, Denies orthopnea and Denies paroxysmal nocturnal dyspnea Resp Reports change in phlegm color, Denies chest congestion, Reports cough, Denies hemoptysis, Reports excessive phlegm production, Denies pain on inspiration, Denies pain with cough, Denies stridor and Denies wheezing GI Reports dysphagia Neuro Reports Normal hearing present, Denies headache(s) and Reports weakness Endo Denies excessive sweating and Reports fatigue Aller/Immun Denies itchy eyes, Denies seasonal rhinorrhea and Denies wheezing Physical Exam Vital Signs: Last Vital Signs Pulse 92 04/06/25 09:57 BP 110/58 L 04/06/25 09:57 Pulse Ox 93 04/06/25 09:57 Oxygen Delivery Method Room Air 04/06/25 09:57 BMI result Body Mass Index 23.1 Const General: cooperative, comfortable, no acute distress and alert Nutritional Appearance: cachectic Orientation/consciousness: patient oriented x3 HEENT Head: Yes normal to inspection, Yes normocephalic and Yes atraumatic Ears: hearing grossly normal bilaterally and external ears normal Eyes General: appearance normal, both eyes and all related structures Eyelids: Yes eyelids normal Sclerae: sclerae normal EOM: EOMs intact bilaterally Neck Neck: Yes normal visual inspection and Yes no lymphadenopathy Lymphatic: no lymphadenopathy noted Chest Chest palpation & inspection: normal inspection of the chest Resp Effort & Inspection: normal respiratory effort, able to speak in complete sentences, no audible wheezes, no cough, no stridor, not tachypneic, no tripod positioning and no use of accessory muscles Auscultation: clear to auscultation bilaterally Cardio Jugular venous distension: no JVD Rate: regular rate Rhythm: regular rhythm Skin Other: warm, dry General skin exam: no rashes or lesions noted Neuro General: patient oriented x3 Cranial nerves: Yes Normal hearing present Cognition (Neuro): normal cognition Gait exam (Neuro): Normal gait present Extrem General: Yes normal to inspection, Yes capillary refill normal, Yes no clubbing, cyanosis or edema and Yes no pedal edema Psych Appearance: grossly normal and well kempt Speech and movement: Normal speech and movement present and Clear speech present Affect: normal affect Attitude: cooperative Thought process: Normal thought process present Thought content: Normal thought content present Insight: Good insight present (Psych) Judgement: Good judgement present (Psych) Assessment & Plan Assessment & Plan (1) Asthma: Code(s): J45.909 - Unspecified asthma, uncomplicated Category: Medical (2) Dysphagia: Code(s): R13.10 - Dysphagia, unspecified Category: Medical Qualifiers: Dysphagia type: unspecified Qualified Code(s): R13.10 - Dysphagia, unspecified (3) HIV (human immunodeficiency virus infection): Code(s): Z21 - Asymptomatic human immunodeficiency virus [HIV] infection status Category: Medical Qualifiers: HIV symptom status: unspecified Qualified Code(s): Z21 - Asymptomatic human immunodeficiency virus [HIV] infection status Plan Will treat bronchitic symptoms with doxycycline. Patient aware to call if symptoms do not improve and seek emergent care if symptoms worsen. Will also send for CXR. Discussed 6mwt, which we will schedule next week. He does have supplemental oxygen at home from prior admission however has not used. ROSITA Vazquez. Order for overnight oximetry placed however inadequate information obtained and will need to repeat. Encouraged patient to obtain pulse oximeter to assess oxygen saturation and maintain >92%. Continued symptoms may be related to aspiration, discussed ways to minimize risk including small meals and thickening agents until MBSS scheduled. Will enter order. Advised to continue budesonide and will send nebulized albuterol to be used PRN. All questions were answered and patient is in agreement of plan. Will follow up in 6-8 weeks or sooner if needed. Orders: Orders FL Modified Barium Swallow Today R13.10 - Dysphagia, unspecified XR chest 2V Today R05.9 - Cough, unspecified Medications: New doxycycline hyclate 100 mg PO BID 14 caps 0RF albuterol sulfate 2.5 mg (3 mL) inhalation Q4-6H PRN 180 mL 3RF shortness of breath or wheezing Coding Level of Care Code Est Pt Level 4 (93582) Complex EM visit Add On G2211 Diagnoses Asthma J45.909 Dysphagia R13.10 Dysphagia type: unspecified HIV infection, unspecified symptom status Z21 HIV symptom status: unspecified
[2025-04-06 09:57] VITALS: BP 110/58; PULSE 92; O2SAT 93; BMI 23.1
--- OUTSIDE RECORDS SUMMARY | 2025-04-06 10:55 | XMS_ITS | Clinical Summary ---
Author Organization [address] [facility] Address [address] [place] [address] Phone Care Team Providers Care Nitro Worker Name Role Phone Physician, Pcp Unknown Primary Care Provider Bina vailable Encounters Date Type Department Care Team Description 03/10/2025 Lab Requisition [facility] [address] [place] [address] MD Unspecified abnormal cytological findings in specimens from anus 03/09/2025 Lab Requisition [facility] [address] [place] [address] MD Candidal esophagitis ([facility] V24, [facility] V28) from Last 3 Months Surgical History Surgery Date Site/Laterality Comments EYE SURGERY Left PROCEDURE: HISTORICAL EYE SURGERY OTHER SURGICAL HISTORY PROCEDURE: ---- OTHER ----; COMMENT: hemorrhoids Medical History Medical History Date Comments Seizures ([facility] V24, [facility] V28) 06/29/2016 DX:Seizures ([facility]); COMMENT: F/u with neuro at [place] Dr Costello HIV (human immunodeficiency virus infection) ([facility] V24, [facility] V28) 06/29/2016 DX:HIV (human im munodeficiency virus infection) ([facility]); COMMENT: HIV dx in 1991, f/u Dr. Street Depression 06/29/2016 DX:Depression Anxiety 06/29/2016 DX:Anxiety; COMM ENT: F/u [facility] Counseling Chronic back pain 06/29/2016 DX:Chronic nena [...] Upcoming Encounters Date Type Department Care Team ([facility] Contact Info) Description 05/05/2025 9:45 AM EDT Consult Orthopedic Surgery - [place] [id number] [address] [facility] [address] [place] [address] Kb Benitez, BERNABE 175 [facility] [address] [place] [address] Health Maintenance Due Date Last Done Comments [...] Panel) 08/13/2022 Colorectal Cancer Screening: Colonoscopy 08/13/2022 Hepatitis C Screening 08/13/2022 Medicare Annual Wellness Visit 08/13/2022 Social Influencers of Health Screening 08/13/2022 Hepatitis B Vaccines (1 of 3 - Risk 3-dose series) 2024 RSV Immunization Adult Patie nts (1 - Risk 60-74 years 1-dose series) 2024 Depression Screening 09/10/2024 Influenza Vaccine (#1) 2025 HIB Vaccines Aged [...] complete this topic RSV Immunization Patients Un carltio 20 months Aged Out No longer eligible [...] Routine 03/09/2025 12:00 AM EDT Candidal esophagitis ([facility] V24, [facility] V28) CULTURE MISCELLANEOUS Routine 03/09/2025 12:00 AM EDT Candidal esophagitis ([facility] V24, [facility] V28) CHLAMYDIA TRACHOMATIS AND NEISSERIA GONORRHOEAE PCR Routine 03/09/2025 12:00 AM EDT Candidal esophagitis ([facility] V24, [facility] V28) from Last 3 Months Results * [...] Yulia albicans(A) GALEN 03/18/2025 8:09 AM EDT [facility] Comment: Edited result: Previously reported as Yeast on 03/16/2025 at 1407 EDT. Swab Oral cavity structure / Unknown 03/09/2025 03/09/2025 6:57 PM EDT us Fabiola [address] MD LAB MICROBIOLOGY - GENERA L ORDERABLES Final Result [facility] [address] [place] [address], [place] [phone] * (ABNORMAL) Culture miscellaneous (03/09/2025 12:00 AM EDT) Miscellaneous Culture Yulia albicans/dubl iniensis(A) GALEN 03/12/2025 10:54 AM EDT [facility] Comment: Edited result: Previously reported as Yeast on 2025 at 1140 EDT. Miscellaneous Culture Klebsiella pneumoniae ssp pneumoniae(A) GALEN 03/12/2025 10:54 AM EDT [facility] Comment: The organism value for [...] Final Result Performing Organization Address [facility] Co de Phone Number [facility] [address] [place] [address], [place] [phone] * Chlamydia trachomatis and Neisseria gonorrhoeae molecular study (03/09/2025 12:00 AM EDT) Neisseria gonorrhoeae PCR Negative Negative LAB MOLECULAR DIAGNOSTICS METHOD 03/10/2025 8:49 AM EDT [facility] Chlamydia trachomatis PCR Negative Negative LAB MOLECULAR DIAGNOSTICS METHOD 03/10/2025 8:49 AM EDT [facility] Swab Rectum structure / Unknown 03/09/2025 03/09/2025 6:[address] MD LAB MICROBIOLOGY - GENERA L ORDERABLES Final Result Performing Organization Address [facility] de Phone Number [facility] [address] [place] [address], [place] [phone] * Non-gynecologic cytology (03/09/2025 12:00 AM EDT) Final Diagnosis Specimen sent to [facility] for Anal cytology with HPV CoTest. Their interpretation is as follows: Anal, Rectum (ThinPrep): Satisfactory for Evaluation. Transformation zone components absent. Negative for Intraepithelial Lesion or Malignancy. Disclaimer This test has been modified from the director plans's instructions. Its performance characteristics were determined by [facility] in a manner consistent with CLIA requirements. This test has not been cleared or approved by the U.S. Food and Drug Administration Report signed electronically by: Qi Lehman M.D. on 16 Mar 2025 at 13:55 at [facility], [address] [facility] (CLIA [id number]) HPV Anal Detect/Genotyping, PCR: High Risk HPV [...] was ordered in the context of a [facility] Non-ESCAPEMENT MAKER Cytology case; this result should be interpreted within the context of the Non-ESCAPEMENT MAKER cytology report. Resulted 12 Mar 2025 at 17:00 by [facility], [address] [facility] (CLIA [id number]) Full report attached. 03/17/2025 2:31 PM EDT [facility] Disclaimer Unless otherwise specified, all tissue is 10% NB formalin fixed and paraffin embedded. Technical cytopathology services provided by [facility], at [address] [place] [address] (CLIA # [id number]/Angel Villalobos MD, [employer] Furn[employer] Keeper Helper.) 03/17/2025 2:31 PM EDT [facility] Brushing/Spatula Anal structure / Unknown 03/09/2025 03/10/2025 9:22 AM EDT us [address] MD LAB CYTOLOGY ORDERABLES F inal Result [facility] [address] [place] [address], from Last 3 Months [id number] [place] [address] MEDICAID - [place] [employer] MEDICARE Member Subscriber Plan / Payer (Ef fective 2017-Present) Name:VICKIE GROVER Relation to Subscriber:Self Name:Vickie Fall Payer ID:[id number] Group ID:[id number] Type:Not on file Address: [address] [place] [address] Care Teams Nitro Worker Relationship Specialty Start Date End Date Physician, Pcp Unknown PCP - General 03/10/25
--- OUTSIDE RECORDS SUMMARY | 2025-04-06 10:55 | XMS_ITS | Data Portability ---
Demographics Address [address] [place] [address] Home Phone Mobile Phone Preferred Language es Marital Status Never Roman Catholic Affiliation Unknown Race White Ethnic Group or Author Organization LYNN WHITE MD [facility], Main Office Address [address] [place] [address] Assessment No assessment recorded. Plan of Treatment Reminders Order Date Submit Date Provider Last Modified By Organization Details Last Modified Time Details Appointments RESEARCH FOLLOW UP 2024 11:30P Wilmer Levin MD Not available Not available Not available Lab HPV DNA, high-ris k, anal [address], [address] [place] [address], [id number], 03/09/2025 16:00:58 pap, LB, anal [address], [address] [place] [address], [address], 03/09/2025 16:01:16 chlamydi a + gonorrhe a DNA panel, unspecif ied specimen [address], [address] [place] [address], [id number], 03/09/2025 16:00:03 culture, throat [address], [address] [place] [address], [id number], 03/09/2025 16:02:43 Referral None recorded . Procedures None recorded . Surgeries None recorded . Imaging electroc ardiogra m 2023 024 [facility] Main Office, [address] [place] [address], [phone], 07/15/2024 15:47:38 Medication Orders clotrima zole 10 mg klaudia 2024 025 [facility] [address] [place], [address], 03/09/2025 10:06:11 fluconaz ole 100 mg tablet 2024 025 [facility], [address] [place] [address], [id number], 03/09/2025 10:06:10 Biktarvy 50 mg-200 mg-25 mg tablet 2024 025 [facility] [address] [place] [address], [address], 03/09/2025 13:04:37 clotrima zole 10 mg klaudia 2024 025 [facility] [address] [place], [address], 12/30/2024 16:32:25 Biktarvy 50 mg-200 mg-25 mg tablet 2024 025 [facility], [address] [place] [address], [address], 12/30/2024 16:32:25 clotrima zole 10 mg klaudia 2024 025 [facility], [address] [place], [address], 11/25/2024 13:20:54 Benadryl 25 mg capsule 2024 025 [facility], [address] [place], [address], 11/25/2024 13:20:55 Biktarvy 50 mg-200 mg-25 mg tablet 2024 025 [facility], [address] [place], [address], 11/25/2024 13:20:54 clotrima zole 10 mg klaudia 2024 025 [facility] [address] [place], [address], 10/21/2024 14:29:45 Biktarvy 50 mg-200 mg-25 mg tablet 2024 025 [facility] [address] [place], [address], 10/21/2024 14:30:45 Patient TargetsNo targets recorded. Patient Instructions Encounter Date Encounter Id Patient Instructions Last Modified By Organization Details Last Modified Time 10/21/2024 [id number] Clotrimazole Oral Lozenge (CLOTRIMAZOLE LOZENGE - MUCOUS [...] atori es - Labor atory - [address] [facility], [place] [address] Not Available [facility] [address] [place], [address], 03/10/2025 08:50:56 03/09/20 25 03/09/2025 CHLAM YDIA TRACH OMATI S AND NEISS ERIA GONOR RHOEA E MOLEC ULAR STUDY neisseria gonorrhoeae PCR Negati ve negati ve Not Available [facility] [address] [place], [address], 03/10/2025 08:50:56 03/09/20 25 03/09/2025 CHLAM YDIA TRACH OMATI S AND NEISS ERIA GONOR RHOEA E MOLEC ULAR STUDY chlamydia trachomatis PCR Negati ve negati ve Not Available [facility] [address] [place], [address], 03/10/2025 08:50:56 03/09/20 25 03/09/2025 CULTU RE MISCE LLANE OUS .note See Note Origi nal Order ing Provi carlito: DELGADO IA T MARTO CHRISTOPHER [facility] - Labor atory - [address] [facility], [facility] [place] [address] Not Available [facility] [address] [place], [address], 03/10/2025 11:21:36 03/09/20 25 03/09/2025 CULTU RE MISCE LLANE OUS miscellaneou s culture YEAST abnormal Yeast Not Available [facility] [address] [place] [address], [address], 03/10/2025 11:21:36 03/09/20 25 03/09/2025 CULTU RE MISCE LLANE OUS .note See Note Origi nal Order ing Provi carlito: DELGADO CARRANZA T MARTO CHRISTOPHER [facility] - Labor atory - [address] [facility], [facility], [facility] [place] [address] Not Available [facility] [address] [place] [address], [address], 03/10/2025 11:26:38 03/09/20 25 03/09/2025 CULTU RE MISCE LLANE OUS miscellaneou s culture YEAST abnormal Yeast Not Available [facility] [address] [place] [address], [address], 03/10/2025 11:26:38 03/09/20 25 03/09/2025 CULTU RE MISCE LLANE OUS .note See Note Origi nal Order ing Provi carlito: DELGAOD IA T MARTO CHRISTOPHER [facility] - Labor atory - [address] [facility], [facility], [facility] [place] [address] Not Available [facility] [address] [place] [address], [address], 03/10/2025 13:02:10 06/30/20 25 03/09/2025 CULTU RE MISCE LLANE OUS miscellaneou s culture YEAST abnormal Yeast Not Available [facility] [address] [place], [address], 03/10/2025 13:02:10 03/09/20 25 03/09/2025 CULTU RE FUNGU S, OTHER THAN SKIN HAIR OR NAILS .note See Note Origi nal Order ing Provi calrito: DELGADO SCHAEFFER CHRISTOPHER [facility] es - Labor atory - [address] [facility], [place], [facility] [place] [address] Not Available [facility] [address] [place] [address], [address], 03/16/2025 14:09:09 03/09/20 25 03/09/2025 CULTU RE FUNGU S, OTHER THAN SKIN HAIR OR NAILS culture, fungus YEAST abnormal Yeast Not Available [facility] [address] [place] [address], [address], 03/16/2025 14:09:09 03/09/20 25 03/09/2025 THINP REP CYTOL OGY WITH HPV, ANAL .note See Note Origi nal Order ing Provi carlito: DELGADO SCHAEFFER CHRISTOPHER [facility] - Labor atory - [address] [facility], [address], [place] [address] Not Available [facility] [address] [place] [address], [address], 03/17/2025 14:23:11 03/09/20 25 03/09/2025 THINP REP CYTOL OGY WITH HPV, ANAL scan result See Scanne d Result Not Available [facility] [address] [place] [address], [address], 03/17/2025 14:23:11 03/09/20 25 03/09/2025 NON-G YNECO LOGIC CYTOL OGY .note See Note Origi nal Order ing Provi carlito: DELGADO TAYLORO CHRISTOPHER [facility] es - Labor atory - [address] [facility], [place], [place] [address] Not Available [facility] [address] [place] [address], [place], [address], 03/17/2025 14:32:10 03/09/20 25 03/09/2025 NON-G YNECO LOGIC CYTOL OGY final diagnosis Specim en sent to [facility] Smiley cook for Anal cytolo gy with [...] jurgen cteri stics were deter mined by [facility] in a toribio r consi stent with CLIA requi remen ts. This test has not been clear ed or appro deborah by the U.S. Food and Drug Admin istra tion Repor t tamra d elect terry correia by: Qi judge M.D. on 16 Mar 2025 at 13:55 at [facility] Labor atori es, [address], [place] (CLIA [id number] ) HPV Anal Detec t/Gen otypi ng, [...] ed in the diane xt of a [facility] Non-G YN Cytol ogy case; this resul t shoul d be inter prete d withi n the diane xt of the Non-G YN cytol ogy repor t. Resul lucho 12 Mar 2025 at 17:00 by [facility] Labor atori es, [address], [place] (CLIA [id number] ) Full repor t attac hed. Elect terry barboza d by Sintia wu MD on 025 at 2:31 PM Not Available [facility] [address] [place] [address], [address], 03/17/2025 14:32:10 03/09/20 25 03/09/2025 NON-G YNECO LOGIC CYTOL OGY disclaimer Unless otherw ise specif ied, all tissue is 10% NB formal in fixed and paraff in embedd ed. Techn ical cytop athol ogy servi surekha provi ded by Miguelina woods of [facility], at [address] [facility] [address], [place] [address] (CLIA # [id number] /Joe orourke MD, Medic al Dire tor.) Not Available [facility] [facility] [address] [place] [address], [address], 03/17/2025 14:32:10 03/09/20 25 03/09/2025 CULTU RE FUNGU S, OTHER THAN SKIN HAIR OR NAILS .note See Note Origi nal Order ing Provi carlito: DELGADO Rogel MARTO CHRISTOPHER [facility] - Labor atory - [address] [place] [address], [place], [facility] [address] Not Available [facility] [address] [place] [address], [address], 03/18/2025 08:10:44 03/09/20 25 03/09/2025 CULTU RE FUNGU S, OTHER THAN SKIN HAIR OR NAILS culture, fungus CANDID A ALBICA NS abnormal Julianna da albic ans Edite d resul t: Previ ously repor lucho as Yeast on 025 at 1407 EDT. Not Available [facility] [address] [place] [address], [address], 03/18/2025 08:10:44 06/18/20 24 06/04/2024 US, abdom en, compl ete No observ ation record ed. [email or web address] [place], [address], 06/18/2024 11:12:25 07/15/20 24 07/15/2024 elect aparna butts am No observ ation record ed. [email or web address] Main Office [address] [place], [address], 07/15/2024 17:12:05 07/17/20 24 elect aparna butts am No observ ation record ed. [email or web address] Main Office [address] [place], [address], 07/17/2024 14:15:04 Result Notes None recorded. 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 Human immunodefi ciency virus [HIV] disease; snomeddesc ription: Human immunodefi ciency virus infection; Report Immunity to Registry: Yes; Human immunodefi ciency virus infection; snomeddesc ription: Human immunodefi ciency virus infection; Report Immunity to Registry: Yes; Not Available [facility] 4 06:58:53 Anxiety 68824810 Active 1996 Anxiety; snomeddesc ription: Anxiety; Report Immunity to Registry: Yes; Not Available [facility] 4 06:58:54 Insomnia 785831692 Active 1996 Insomnia; Report Immunity to Registry: Yes; Not Available [facility] 4 06:58:57 Anxiety state 258660229 Active 1996 Anxiety state, unspecifie d; snomeddesc ription: Anxiety; Report Immunity to Registry: Yes; Not Available [facility] 4 06:58:57 Depressiv e disorder 10728971 Active 1996 Depressive disorder, not elsewhere classified ; snomeddesc ription: Depressive disorder; Report Immunity to Registry: Yes; Depressiv e disorder; snomeddesc ription: Depressive disorder; Report Immunity to Registry: Yes; Not Available [facility] 4 06:58:58 Arthritis 8779782 Active 1998 Arthritis; snomeddesc ription: Arthritis; Report Immunity to Registry: Yes; Notes: Osteoatrth ris multiple; Not Available [facility] 4 06:58:55 Arthropat hy 665254729 Active 1998 Arthropath y, unspecifie d, site unspecifie d; snomeddesc ription: Arthritis; Report Immunity to Registry: Yes; Notes: Osteoatrth ris multiple; Not Available [facility] 4 06:58:56 Sleep apnea 66699259 Active 1999 Sleep apnea; snomeddesc ription: Sleep apnea; Report Immunity to Registry: Yes; Unspecifi ed sleep apnea; snomeddesc ription: Sleep apnea; Report Immunity to Registry: Yes; Not Available [facility] 4 06:58:55 Seizure 84090992 Active 2000 Seizure; snomeddesc ription: Seizure; Report [...] Report Immunity to Registry: Yes; Not Available [facility] 4 06:58:58 Kidney stone 83785543 Active 2001 Calculus of kidney; snomeddesc ription: Kidney stone; Report Immunity to Registry: Yes; Kidney stone; snomeddesc ription: Kidney stone; Report Immunity to Registry: Yes; Not Available [facility] 4 06:58:54 History of calculus of kidney 035572536 Active 2001 History of calculus of kidney; snomeddesc ription: History of calculus of kidney; Report Immunity to Registry: Yes; Not Available [facility] 4 06:58:54 History of urinary stone 486807286 Active 2001 Personal history of urinary calculi; snomeddesc ription: History of calculus of kidney; Report Immunity to Registry: Yes; Not Available [facility] 4 06:58:56 Asthma 610170477 Active 2006 Asthma; snomeddesc ription: Asthma; Report Immunity to Registry: Yes; Asthma; Report Immunity to Registry: Yes; ReasonDate : 10/13/2019 ; ; Start Date : 10/13/2019 Asthma; snomeddesc ription: Asthma; Report Immunity to Registry: Yes; Not Available [facility] 4 06:58:53 Diarrhea 13034908 Active 2006 Diarrhea; snomeddesc ription: Diarrhea; Report Immunity to Registry: Yes; Diarrhea, unspecifie d; snomeddesc ription: Diarrhea; Report Immunity to Registry: Yes; Not Available [facility] 4 06:58:53 Substance abuse 75913721 Active 2006 Substance abuse; snomeddesc ription: Substance abuse; Report Immunity to Registry: Yes; Notes: opiate/suad jolene/benzo ; Not Available [facility] 4 06:58:53 Fibromyos itis 23368290 Active 2006 Myalgia and myositis, unspecifie d; snomeddesc ription: Fibromyalg ia; Report Immunity to Registry: Yes; Notes: Chronic pain multiple/c hronic back pain; Not Available [facility] 4 06:58:53 Type B viral hepatitis 57069971 Active 2006 Type B viral hepatitis; snomeddesc ription: Type B viral hepatitis; Report Immunity to Registry: Yes; Notes: core ab pos; s ag neg; s ab neg HBV vL nondetecte d 2016; 2017; Not Available [facility] 4 06:58:54 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 31885485 Active 2006 Other psychoacti ve substance abuse, uncomplica lucho; snomeddesc ription: Substance abuse; Report Immunity to Registry: Yes; Notes: opiate/suad jolene/benzo ; Not Available [facility] 4 06:58:55 Viral hepatitis B without hepatic coma 590752667 Active 2006 Unspecifie d viral hepatitis B without hepatic coma; snomeddesc ription: Type B viral hepatitis; Report Immunity to Registry: Yes; Notes: core ab pos; s ag neg; s ab neg HBV vL nondetecte d 2016; 2017; Not Available [facility] 4 06:58:55 Fibromyal mika 414770005 Active 2006 Fibromyalg ia; snomeddesc ription: Fibromyalg ia; Report Immunity to Registry: Yes; Notes: Chronic pain multiple/c hronic back pain; Not Available [facility] 4 06:58:56 Chronic hepatitis C 242961733 Active 2006 Chronic hepatitis C without mention [...] neg 2015;2017; 12/2021 F2 ; Not Available [facility] 4 06:58:57 Steatotic liver disease 407079624 Active 2006 Steatosis of liver; snomeddesc ription: Steatosis of liver; Report Immunity to Registry: Yes; Notes: u/s 2021; Fatty (change of) liver, not elsewhere classified ; snomeddesc ription: Steatosis of liver; Report Immunity to Registry: Yes; Notes: u/s 2021; Not Available [facility] 4 06:58:53 Headache 12521968 Active 2008 Headache; snomeddesc ription: Headache; Report Immunity to Registry: Yes; Notes: migraine; Headache; snomeddesc ription: Headache; Report Immunity to Registry: Yes; Notes: migraine; Not Available [facility] 4 06:58:56 Herpesvir us infection 14056885 Active 2009 Herpesvira l infection, unspecifie d; snomeddesc ription: Herpes simplex; Report Immunity to Registry: Yes; Notes: HSV 1 pos serology; HSV 2 neg serology; Not Available [facility] 4 06:58:53 Herpes simplex 93640372 Active 2009 Herpes simplex; snomeddesc ription: Herpes simplex; Report Immunity to Registry: Yes; Notes: HSV 1 pos serology; HSV 2 neg serology; Not Available [facility] 4 06:58:54 Seasonal allergic rhinitis 268636705 Active 2012 Other seasonal allergic rhinitis; snomeddesc ription: Seasonal allergy; Report Immunity to Registry: Yes; Notes: hx nasal congestion ; Not Available [facility] 4 06:58:54 Blood chemistry outside reference range 016224181 Active 2012 Other specified abnormal findings of blood chemistry; snomeddesc ription: Decreased testostero ne level; Report Immunity to Registry: Yes; Notes: hypogoandi sm; Not Available [facility] 4 06:58:55 Testoster one level below reference range 334950899 Active 2012 Decreased testostero ne level; snomeddesc ription: Decreased testostero ne level; Report Immunity to Registry: Yes; Notes: hypogoandi sm; Not Available [facility] 4 06:58:57 Seasonal allergy 054705377 Active 2012 Seasonal allergy; snomeddesc ription: Seasonal allergy; Report Immunity to Registry: Yes; Notes: hx nasal congestion ; Not Available [facility] 4 06:58:58 Loss of appetite 22744644 Active 2012 Anorexia; snomeddesc ription: Loss of appetite; Report Immunity to Registry: Yes; Loss of appetite; snomeddesc ription: Loss of appetite; Report Immunity to Registry: Yes; Not Available [facility] 4 06:58:58 Male hypogonad ism 82041531 Active 2012 Male hypogonadi sm; snomeddesc ription: Male hypogonadi sm; Report Immunity to Registry: Yes; Not Available [facility] 4 06:58:53 Testicula r hypofunct ion 589276979 Active 2012 Other testicular hypofuncti on; snomeddesc ription: Male hypogonadi sm; Report Immunity to Registry: Yes; Not Available [facility] 4 06:58:54 Hyperplas ia of prostate 638457605 Active 2014 Hyperplasi a of prostate, unspecifie d, without urinary obstructio n and other lower urinary symptoms (LUTS); snomeddesc ription: Hyperplasi a of prostate; Report Immunity to Registry: Yes; Hyperplas ia of prostate; snomeddesc ription: Hyperplasi a of prostate; Report Immunity to Registry: Yes; Not Available [facility] 4 06:58:54 Hypertens marj disorder 41710026 Active 2017 Hypertensi ve disorder; snomeddesc ription: Hypertensi ve disorder; Report Immunity to Registry: Yes; Not Available [facility] 4 06:58:56 Essential hypertens ion 47581690 Active 2017 Essential (primary) hypertensi on; snomeddesc ription: Hypertensi ve disorder; Report Immunity to Registry: Yes; Not Available [facility] 4 06:58:57 Lyme disease 36358487 Active 2017 Lyme disease; Report Immunity to Registry: Yes; Notes: tx cefuroxime x14 d (hx all Doxy); Not Available [facility] 4 06:58:56 Onychomyc osis due to dermatoph yte 082437809 Active 2017 Tinea unguium; snomeddesc ription: Onychomyco sis; Report Immunity to Registry: Yes; Notes: feet digits; Not Available [facility] 4 06:58:55 Onychomyc osis 393396466 Active 2017 Onychomyco sis; snomeddesc ription: Onychomyco sis; Report Immunity to Registry: Yes; Notes: feet digits; Not Available [facility] 4 06:58:57 Problem Notes None recorded. Medical Equipment None Reported. Allergies Allergen ID Allergen Name Allergen Category Reaction Reaction Severity Criticality Documentation Date Start Date Code Code System Note Provider Name and Address Organization Details Recorded Time 714 Reglan medicatio n Not available Not available Not available 10/31/20232012 9230 RxNorm Comme nt: adver se_ev ent_t ype: 49819 8002; ; Not Available [facility] 4 06:50:47 715 Motrin medicatio n Not available Not available Not available 10/31/2023201248 8 RxNorm Comme nt: adver se_ev ent_t ype: 38384 8002; ; Not Available [facility] 4 06:50:47 716 doxycycli ne Not available Not available Not available Not available 10/31/20232017 3640 RxNorm Comme nt: adver se_ev ent_t ype: 58348 8002; ; Not Available [facility] 4 06:50:47 Medications Name Sig Start Date Stop Date Status Note LastModified by Organization Details LastModified Time multivita min tablet Multiple Vitamins Quantity : 30; 3 refill(s ) 12/01 completed Frequenc y: qd; VACCINE_ IND: no; SU_FULL_ NAME: Fabiola Palomo yordy; Not Available Not Available Not [...] qd; VACCINE_ IND: no; SU_FULL_ NAME: Fabiola Palomo yordy; Not Available Not Available Not [...] 30; VACCINE_ IND: no; SU_FULL_ NAME: Fabiola Palomo yordy; Not Available Not Available Not [...] ccal polysacc haride PPV23; SU_FULL_ NAME: Fabiola scales; Not Available Not [...] ne 3 mg tablet TAKE 1 TABLET BY PER G TUBE ROUTE AT BEDTIME active Not Available Not Available [...] 30; VACCINE_ IND: no; SU_FULL_ NAME: Fabiola Palomo yordy; Not Available Not Available Not Available tamsulosi [...] completed VACCINE_ IND: no; SU_FULL_ NAME: Fabiola Palomo yordy; Not Available Not Available Not Available Liquid Nutrition oral 0 Quantity : 41898; Duration : 30; 0 refill(s ) 09/30 [...] bid; VACCINE_ IND: no; SU_FULL_ NAME: Fabiola Palomo l; Not Available Not Available Not [...] Not Available Not Available Not Available Flulaval 8569-2186 45 mcg (15 mcg x 3)/0.5 mL [...] 30; VACCINE_ IND: no; SU_FULL_ NAME: Fabiola Palomo yordy; Not Available Not Available Not [...] SU_FULL_ NAME: Fabiola Palomo yordy; VIS_DATE : 19:25:45 .0; Not [...] injectab le, quadriva lent; SU_FULL_ NAME: Fabiola Stacia scales; VIS_DATE : 05:00:00 .0; Not Available Not Available Not Available Afluria Quad 60 mcg (15 mcg x 4)/0.5 mL intramusc ular susp. quadriva lent Quantity : ; 0 refill(s ) 2019 active VACCINE_ IND: yes; VACCINE_ NAME: influenz a, injectab le, quadriva lent; SU_FULL_ NAME: Fabiola Martsusan scales; VIS_DATE : 14:37:48 .0; Not Available Not Available Not Available Prevnar 20 (PF) 0.5 mL intramusc ular syringe - Quantity : ; 0 refill(s ) 2022 active VACCINE_ IND: yes; VACCINE_ NAME: Pneumoco ccal conjugat e PCV20, polysacc haride [id number] conjugat e, adjuvant , PF; Not Available Not Available Not Available Vitals Date Recorded Heart rate Body temperature Body weight Systolic And Diastolic Provider Name and Address Organization Details Last Updated DateTime 10/21/2024 98 /min 98.2 [degF] 48230.26 g 118/97 mm[Hg] Lexis LEVIN MD [facility] 10/21/2024 12:04:23 Date Recorded Body height Heart rate Respiratory rate Body mass index (BMI) Body weight Systolic And Diastolic Provider Name and Address Organization Details Last Updated DateTime 162.56 cm 81 /min 20 /min 24.9 kg/m2 73766.8 9 g 136/89 mm[Hg] Fabiola Levin MD [address] [place] [address], [phone] 6LYNN MD [facility] 5 15:01:34 Date Recorded Heart rate Body mass index (BMI) Body weight Respiratory rate Systolic And Diastolic Provider Name and Address Organization Details Last Updated DateTime 12/30/2024 92 /min 26.1 kg/m2 80371.04 g 16 /min 108/83 mm[Hg] Fabiola Levin MD [address] [place] [address], [phone] 6LYNN MD [facility] 5 16:33:39 Date Recorded Body height Provider Name an Address Organization Details Last Updated DateTime 12/30/2024 162.56 cm Jany Mook LYNN LEVIN MD [facility] 12/30/2024 15:08:38 Date Recorded Body height Heart rate Respiratory rate Body temperature Body mass index (BMI) Body weight Systolic And Diastolic Provider Name and Address Organization Details Last Updated DateTime 5 162.56 cm 103 /min 18 /min 98.4 [degF] 25.1 kg/m2 18865.4 9 g 110/80 mm[Hg] Aleksandra Harrisalexandr LEVIN MD [facility] 5 11:09:16 Date Recorded Body temperature Body mass index (BMI) Body weight Respiratory rate Heart rate Systolic And Diastolic Provider Name and Address Organization Details Last Updated DateTime 98.7 [degF] 20.6 kg/m2 24385.0 8 g 20 /min 87 /min 120/80 mm[Hg] Fabiola Levin MD [address] [place] [address], [phone], LYNN LEVIN MD [facility] 15:46:02 Date Recorded Body height Provider Name an d Address Organization Details Last Updated DateTime 07/15/2024 162.56 cm Jerome Centeno LYNN LEVIN MD [facility] 07/15/2024 15:22:29 Social History None [...] Time Meningococcal MCV4O 9 completed Not Available [facility] 10/31/2023 06:54:49 zoster live 9 completed Not Available [facility] 10/31/2023 06:54:50 Influenza, split virus, quadrivalent, preservative 9 completed Not Available [facility] 10/31/2023 06:54:50 Influenza, split virus, quadrivalent, preservative 8 completed Not Available [facility] 10/31/2023 06:54:50 Influenza, split virus, quadrivalent, preservative 0 completed Not Available [facility] 10/31/2023 06:54:50 Past Encounters Encounter ID Performer Location Encounter Start Date Encounter Closed Date Diagnosis/Indication Diagnosis SNOMED-CT Code Diagnosis ICD10 Code Diagnosis Note [id number] Fabiola Levin MD Main Office [address] [place] [address] 05/25/2023 09:48:40 06/27/2023 09:16:16 Human immunodeficiency virus infection 33306556 B20 HIV. Continue Biktarvy 1 tab po [...] safe sex. plan of care reviewed [id number] Fabiola Levin MD Main Office [address] [place] [address] 08/24/2023 09:33:00 08/24/2023 10:46:09 Human immunodeficiency virus infection 70626398 B20 HIV. Continue Biktarvy 1 tab po [...] /Tivicay.s afe sex.labs Septemberlan of care reviewed [id number] Fabiola Levin MD Main Office [address] [place] [address] 11/12/2023 11:34:42 11/16/2023 15:00:47 Human immunodeficiency virus infection 36703663 B20 HIV.Contin ue Biktarvy 1 tab po qd.U=Upt aware of PreP availabili ty.condom use.plan of care reviewed Adult heal th examination 513794877 Z00.00 [id number] Fabiola Levin MD Main Office [address] [place] [address] 11/21/2023 10:59:43 11/23/2023 14:55:21 [id number] Fabiola Levin MD Main Office [address] [place] [address] 01/14/2024 09:27:39 01/16/2024 13:51:41 [id number] Fabiola Levin MD Main Office [address] [place] [address] 01/16/2024 10:24:39 01/16/2024 11:50:10 Human immunodeficiency virus infection 44494729 B20 HIV.Contin ue Biktarvy 1 tab po qd.U=Upt aware of PreP availabili ty.condom use.labs todayplan of care reviewed Candidiasis of mouth 797 61308 B37.0 nystatin 5cc po qid x 14 days. swish and spit.call with any side effects.ba cterial/fu ngal swab obtained. 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 [id number] Fabiola Levin MD Main Office [address] [place] [address] 02/14/2024 12:00:04 02/14/2024 12:24:19 Human immunodeficiency virus infection 91791029 B20 HIV.Contin ue Biktarvy 1 tab po qd.U=Upt aware of PreP availabili ty.DoxyPEP reviewedco ndom use.labs todayplan of care reviewed Methicilli n resistant Staphylococcus aureus infection 862122595 A49.02 swab culture 01/2024 Candidiasi s of the esophagus 38050633 B37.81 sandy glabratafl uconazole 100mg po qd x 14 dayscall with any side effects. Weight loss 59343245 R63 .4 contributi ng factor sandy, MRSA, HIV among othermight benefit from Serostim.w ill review with himG tube [id number] Fabiola Levin MD Main Office [address] [place] [address] 02/21/2024 11:08:05 02/21/2024 12:09:56 Human immunodeficiency virus infection 51533429 B20 HIV.Contin ue Biktarvy 1 tab po qd.complia nce reviewedU= Upt aware of PreP availabili ty.DoxyPEP reviewedco ndom use.labs todayplan of care reviewed Candidiasi s of the esophagus B37.81 sandy glabratato complete fluconazol e 100mg po bid x 14 days: (10mg/ml) 10ml by G tube bidcall with any side effects. Methicilli n resistant Staphylococcus aureus infection 687414100 A49.02 swab culture urr ently on Bactrim oral suspension (200mg- 40mg/5ml) since 02/15-20ml q 12 hrs G tube x 10 days Cachexia a ssociated with AIDS 219199593 B20 R64 weight loss. frail. progressin g.contribu ting factor sandy, MRSA, HIV among other. G tubeSerost im 6mg sq qd will be prescribed with the goal of helping w weight gain, increase muscle mass gain, and increase enduranceh e has visiting nurse who could assist with daily injections . [id number] Fabiola Levin MD Main Office [address] [place] [address] 02/25/2024 10:24:53 02/25/2024 11:09:27 Human immunodeficiency virus infection 69340850 B20 HIV.Contin ue Biktarvy 1 tab po qd.complia nce reviewedU= Ucondom use.labs todayplan of care reviewed Candidiasi s of the esophagus B37.81 sandy glabratawi ll continue fluconazol e 200 mg po qd x 14 days: (10mg/ml) 10ml by G tube QD;will on next appointmen t for further tx va suppressio n tx.call with any side effects. Cachexia a ssociated with AIDS 028818322 B20 R64 weight loss. frail. progressin g.approved Serostim 6mg sq qd; awaiting delivery to the office. will be prescribed with the goal of helping w weight gain, increase muscle mass gain, and increase enduranceh e has visiting nurse who could assist with daily injections .ensure tidmegace 625 mg qd. Methicilli n resistant Staphylococcus aureus infection 189493875 A49.02 swab culture 01/2024will complete 10 days of Bactrim oral suspension (200mg- 40mg/5ml) since 02/15-20ml q 12 hrs G tube on 02/27/24 [id number] Fabiola Levin MD Main Office [address] [place] [address] 03/14/2024 10:24:00 03/14/2024 10:29:25 Cachexia associated with AIDS 292506980 R64 B20 gained 2 pounds. probably improved sandy esophagiti s 2nd to inhaled steroids.S Tart Serostim 6mg s/c qd abdomen. first dose administer ed today. Tolerated well; goalis to increase weight, endurance and muscle massHe will have MONKEY BREEDER and nurse help with daily injections .potential side effects reviewed.t o call with any concernshe will shredder picker Megace today, and start it as well(G tube) qd to increase apetitte Human immunodeficiency virus infection 23598337 B20 HIV.Contin ue Biktarvy 1 tab po qd.complia nce reviewed Candidiasi s of the esophagus 77393627 B37.81 sandy glabratawi ll continue 2 more weeks of fluconazol e 200 mg po qd x 14 days: (10mg/ml) 10ml by G tube QD;might benefit from qw suppressio n tx.call with any side effects. [id number] Fabiola Levin MD Main Office [address] [place] [address] 04/18/2024 09:52:00 04/18/2024 11:19:01 Cachexia associated with AIDS 455921631 R64 B20 124 lbs. gained weightcont inue Serostim 6mg s/c qd abdomen. goalis to increase weight, endurance and muscle masscontin ue Megace G tube qdCNA and nurse helping with compliance and tx.potenti al side effects reviewed.t o call with any concerns Human immunodeficiency virus infection 32661922 B20 HIV.Contin ue Biktarvy 1 tab po qd.padmini hoffman reviewedla bs today Candidiasi s of the esophagus 73558704 B37.81 sandy glabratawi ll continue fluconazol e 200 (10ml) mg G tube qw for suppressio n tx.call with any side effects. Aspiration pneumonia 422 290183 J69.0 get discharge summaryon antibiotic ;eat standing or sitting; [place] [id number] Fabiola Levin MD Main Office [address] [place] [address] 05/20/2024 10:17:53 05/20/2024 12:44:49 Cachexia associated with AIDS 716527981 R64 B20 continue Serostim 6mg s/c qd abdomen. goal is to increase weight, endurance and muscle masscontin ue Megace G tube qd 5cc qdCNA and nurse helping with compliance and tx.potenti al side effects reviewed.t o call with any concerns Human immunodeficiency virus infection 93385668 B20 HIV.Contin ue Biktarvy 1 tab po qd.padmini hoffman reviewedla bs today Candidiasi s of the esophagus 05030688 B37.81 sandy glabrataho ld fluconazol e for nowSTART 1 tab po bid x 21 says for esophageal sandy glabrata.c all with any side effects. [id number] Fabiola Levin MD Main Office [address] [place] [address] 06/18/2024 10:10:09 06/18/2024 11:12:33 Cachexia associated with AIDS 410577044 R64 B20 continue Serostim 6mg s/c qd abdomen. goal is to increase weight, endurance and muscle massCNA and nurse helping with compliance and tx.megace on holdpotent ial side effects reviewed.t o call with any concerns Human immunodeficiency virus infection 21542328 B20 HIV.Contin ue Biktarvy 1 tab po qd.padmini hoffman reviewedla bs today Inflammato ry disease of liver 245039234 K75.9 Suspect 2nd to concomitan t medication s. ongoingdo not re-start fluconazol e nor megacenega tive infectious and non-infect ious workupto call or ER if jaundice, abd pain, n/v/d marce aleksandar History of calculus of kidney 672339220 Z87.442 u/s 05/[address] scan 02/2024hydr ation Aspiration pneumonia 422 253476 J69.0 s/p aspiration on CT AngioNPO per instructio n given to him in hospital; nutrition by G tubes/p (ceftriaxo ne,Azithro ,Flagyl while in Hospital;d ischarged on azithro and cefpodoxim e x 3 days which he completed. leg elevationa void sedating meds as much as possible Deep venou s thrombosis of lower extremity 159092299 I82.409 left lower extremity doppler showed DVT of gastrocnem ius vein;on tx w w Eliquis bid . Pulmonary embolism [address] Angio was positive for Acute lobar PEs/p heparin; ongoing Eliquis bidmed list reviewed.n o drug use for years. not on maintenanc e tx.denies current ETOH use. [id number] Fabiola Levin MD Main Office [address] [place] [address] 07/15/2024 15:10:10 07/15/2024 15:45:30 Cachexia associated with AIDS 655673592 R64 B20 continue Serostim 6mg s/c qd abdomen. goal is to increase weight, endurance and muscle masspotent ial side effects reviewed.t o call with any concerns Human immunodeficiency virus infection 81826945 B20 HIV.Contin ue Biktarvy 1 tab po qd.complia nce reviewedla bs Candidiasi s of the esophagus 37021533 B37.81 on clotrimazo le. swish and spit qd Medication monitoring 39 9961977 Z51.81 [id number] Fabiola Levin MD Main Office [address] [place] [address] 10/21/2024 12:22:54 10/21/2024 16:48:51 Cachexia associated with AIDS 993114419 R64 B20 improvedco ntinue Serostim 6mg s/c qd abdomen. goal is to increase weight, endurance and muscle masspotent ial side effects reviewed.m ay start decreasing dose in 1-2 months if further weight gainon Boost protein shakesto call with any concerns Human immunodeficiency virus infection 97401460 B20 HIV.Contin ue Biktarvy 1 tab po qd.complia nce reviewedla bs Candidiasi s of the esophagus .81 on clotrimazo le. swish and spit qd/BID PRN [id number] Fabiola Levin MD Main Office [address] [place] [address] 11/25/2024 11:48:55 11/25/2024 14:20:54 Cachexia associated with AIDS 476597821 R64 B20 improvedco ntinue Serostim 6mg s/c [...] with any concerns Human immunodeficiency virus infection 57761649 B20 HIV.Contin ue Biktarvy 1 tab po qd.compljordon nce reviewedla bs Candidiasi s of the esophagus .81 off/on; recurrento n clotrimazo le. swish and spit qd/BID PRN for suppressio n Insomnia 281246248 G47.0 0 benadryl capsules requested by patient forinsomni a and itchiness as needed.cor rect use reviewed. [id number] Fabiola Levin MD Main Office [address] [place] [address] 12/30/2024 15:04:38 12/31/2024 09:52:40 Cachexia associated with AIDS 308302685 R64 B20 improvedco ntinue Serostim 6mg s/c [...] with any concerns Human immunodeficiency virus infection 18640150 B20 HIV.Contin ue Biktarvy 1 tab po qd.compljordon nce reviewedla bs Candidiasi s of the esophagus 7.81 off/on; recurrento n clotrimazo le. swish and spit /BID/TID PRN for suppressio n [id number] Fabiola Levin MD Main Office [address] [place] [address] ЮЛИЯ, LYNN [address] 03/09/2025 09:16:22 03/09/2025 10:12:30 Cachexia associated with AIDS 814564253 R64 B20 stable/imp roved.cont inue Serostim 6mg s/c qd abdomen. goal is to increase weight, endurance and muscle masspotent ial side effects reviewed.o n Boost protein shakescont inue megace; plan to stop in the next 2-3 monthsto call with any concerns Human immunodeficiency virus infection 16269115 B20 HIV.Contin ue Biktarvy 1 tab po qd.complia nce reviewedla bs Candidiasi s of the esophagus 98639112 B37.81 off/on; recurrento n clotrimazo le. swish and spit /BID/TID PRN for suppressio nSTART Fluconazol e 100mg po qd x 21 days: esophageal sandy; then continue clotrimazo le for suppressio noral swab for sandy/ba cteria obtained Abnormal a nal Papanicolaou smear 209049011 R85.619 Anal PAP sample obtained/p reformed: no abnormalit yGC/chlamy chi rectal done Health Concerns Section Related Observation LastModified by Organization Detai ls LastModified Time None Recorded Concern Status LastModified by Organization Details LastModified Time None Recorded Advance Directives Directive None Recorded Payers Insurance Date Sequence Insurance Name Policy Number Policy Perry Covered Member ID Perry Member ID Guarantor Name 03/10/2025 1 [facility] - DOS ON OR AFTER 2022 - MEDICARE ADVANTAGE [place] (MEDICARE REPLACEMENT/AD VANTAGE - PPO) Benjamin Fall [id number] Benjamin Fall
--- OUTSIDE RECORDS SUMMARY | 2025-04-06 10:56 | XMS_ITS | Clinical Summary ---
Author Organization [facility] Address [address] [address] Phone Care Team Providers Care Oil Truck Driver Name Role Phone Gaetano Gibbons MD Primary Care Provider [phone] Social History Tobacco Use Types Packs/Day Years Used Date Smoking Tobacco: Never Assessed Education Answer Date Recorded Are you interested in more education? Not on juan e 05/09/2023 Are you concerned about learning? Not on file 05/09/2023 No 05/09/2023 No 05/09/2023 Digital Access Answer Date Recorded No 05/09/2023 No 05/09/2023 Reliable internet access at home? Not on file 05/09/2023 Device with a working camera? Not on file Sex and Gender Information Value Date Recorded Sex Assigned at Not on file Legal Sex Male 9:43 PM EDT Gender Identity Not on file Sexual Orientation Not on file Plan of Treatment Health Maintenance Due Date Last Done Comments Adult Td,Tdap Booster 1964 LIPID PANEL 1964 DEPRESSION SCREENING 1976 SMOKING Hx and SMOKELESS TOB ACCO SCREENING 1977 HEPATITIS C SCREENING 1982 HIV ONE-TIME SCREENING (18-6 5 YEARS) 1982 COLOGUARD 2009 COLONOSCOPY 2009 COLORECTAL CANCER SCREENING 2009 FIT TEST 2009 FOBT 2009 SIGMOIDOSCOPY 2009 VIRTUAL COLONOSCOPY 2009 PNEUMOCOCCAL VACCINES (50+ y ears) (1 of 1 - PCV) 2014 ZOSTER VACCINES (1 of 2) 2014 COVID-19 VACCINE ( - 2023-2 5 season) 2024 RSV VACCINE (1 - 1-dose 75+ series) 2039 HEPATITIS A VACCINES Aged Out No long er eligible based on patient's age to complete this topic HIB VACCINES Aged Out No longer eligi ble based on patient's age to complete this topic MENINGOCOCCAL VACCINES (ACWY) Aged Out No longer eligible based on patient's age to complete this topic MENINGOCOCCAL VACCINES (B) Aged Out N o longer eligible based on patient's age to complete this topic Medical Devices Not on file Care Teams Oil Truck Driver Relationship Specialty Start Date End Date Gaetano Gibbons MD [address] [place] [address], [address] [place] [address] [email or web address] PCP - General Family Medicine 07/02/23 Additional Source Comments The information contained in this document represents components of the legal health record. It is not the complete legal health record.[facility]
== END 2025-04-06 10:28 | disposition home or self-care (01) ==
LOC: HO.HPS 09:55
PROVIDERS: PCP Student in an Organized Health Care Education/Training Program; Visit Provider Nurse Practitioner Family
DX: J45.909 Unspecified asthma, uncomplicated (principal); R13.10 Dysphagia, unspecified; Z21 Asymptomatic human immunodeficiency virus [HIV] infection status
CPT/HCPCS: 99214; G2211

== ENCOUNTER → 2025-04-06 10:39 | Outpatient (BNV) | payer OTHER, SELFPAY | PROVIDERS: PCP Student in an Organized Health Care Education/Training Program; Visit Provider Radiology Diagnostic Radiology | DX: J44.9 Chronic obstructive pulmonary disease, unspecified (principal) | CPT/HCPCS: 71046 ==

== ENCOUNTER 2025-04-13 09:02 | Outpatient (AMB) | payer OTHER, SELFPAY ==
--- NOTE | 2025-04-13 09:25 | MHC.OFFVIS ---
Intake Visit Reasons: 6MWT Agency Service Representative Required: No Accompanied by: Bread Wrapper Operator Allergies Seasonal Allergies Allergy (Intermediate, Verified 04/13/25 09:26) Eye Drainage codeine (From Tylenol-Codeine #3) Allergy (Mild, Verified 04/13/25 09:26) Rash levofloxacin (From Levaquin) Allergy (Mild, Verified 04/13/25 09:26) Rash metoclopramide (From Reglan) Allergy (Mild, Verified 04/13/25 09:26) Rash acetaminophen (Tylenol-Codeine #3) Allergy (Unknown, Verified 04/13/25 09:26) Rash Penicillins (PENICILLINS) Allergy (Unknown, Verified 04/13/25 09:26) Rash ibuprofen (From Motrin) Adverse Reaction (Unknown, Verified 04/13/25 09:26) Reflux [facility] Medical History (Updated 03/24/25 @ 09:40 by Nat Bueno CNP) Fibromyalgia Hepatitis C virus infection without hepatic coma Myalgia History of pulmonary embolism Lower urinary tract symptoms Hypogonadism in male Low serum cortisol level Adrenal hyperplasia Osteoporosis Height loss HIV (human immunodeficiency virus infection) Asthma Dysphagia Adult failure to thrive Adult failure to thrive Multiple rib fractures History of empyema of pleura (01/05/23) Hypertension Closed fracture of leg Hepatitis C Kidney stones Pleuritic chest pain Pneumonia Substance abuse Hemorrhoids Depression HIV (human immunodeficiency virus infection) Asthma Surgical History H/O hemorrhoidectomy Family History Maternal Grandmother Lung cancer Maternal Aunt Lung cancer Mother Lung cancer Social History Household Members: Caregiver Household Members 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 Housing: Apartment Do you presently have visiting nurse or other home services: Yes Alcohol intake: never Patient Tobacco Use Status: Former Tobacco user Tobacco use type: Cigarette e-Cigarette/Vaping Use: Never Used Second Hand Smoke Exposure: No Substance Use Type: Crack/Cocaine Advance Directives Date on File: 04/25/21 service: No Current occupational status: disabled 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 Maintained O2 saturation of 93-94% with pulse of 114-130. Denied shortness of breath. Supplemental oxygen was not indicated at this time. [address] - 6 Minute Walk Assessment & Plan Assessment & Plan (1) Dyspnea: Code(s): R06.00 - Dyspnea, unspecified Category: Medical Plan nurse's visit for 6MWT Orders: Orders AMB 6 minute walk Today J86.9 - Pyothorax without fistula Coding Level of Care Code Procedure Only Diagnoses Dyspnea R06.00 CPT Codes Coding ([id number])
--- OUTSIDE RECORDS SUMMARY | 2025-04-13 09:27 | XMS_ITS | Clinical Summary ---
Author Organization [facility] Address [address] [address] Phone Care Team Providers Care Newspaper Library Manager Name Role Phone Gaetano Gibbons MD Primary Care Provider [phone] Social History Tobacco Use Types Packs/Day Years [...] Medical Devices Not on file Care Teams Newspaper Library Manager Relationship Specialty Start Date End Date Gaetano Gibbons MD [address] [place] [address] 204, [address] [place] [address] [email or web address] PCP - General Family Medicine 07/02/23 Additional Source Comments The information contained in this document represents components of the legal health record. It is not the complete legal health record.[facility]
--- OUTSIDE RECORDS SUMMARY | 2025-04-13 09:27 | XMS_ITS | Clinical Summary ---
Author Organization [facility] Address [address] [place] [address] Care Team Providers Care Mercantile Reporter Name Role Phone Zora Arce PA-C Primary Care Provider [phone] Source Comments PLEASE NOTE, if this patient [...] EC tabletIndications:H IV (human immunodeficiency virus infection) ([facility]) Take 1 Tab by mouth once daily. [...] NUTRITION) liquidIndications:H IV (human immunodeficiency virus infection) ([facility]) Take 1 Can by mouth 3 [...] 0.65 % nasal sprayIndications:As thma, intermittent, uncomplicated ([facility]) Place 1 [place] into the nostril(s) as needed for congestion. 60 mL 6 016 Active omeprazole (PRILOSEC) [address] capsuleIndications: Dyspepsia Take 1 Cap by mouth every morning before breakfast. Do not crush or chew. 30 Cap 3 016 Active albuterol sulfate hfa (PROAIR HFA) 90 mcg/actuation inhalerIndications: Asthma, intermittent, uncomplicated ([facility]) Inhale 2 Puffs into the lungs every 4 (four) hours as needed for shortness of breath. Int asthma 18 g 6 016 Active Active Problems Problem Noted Date Diagnosed Date Asthma, mild intermittent ([facility]) 05/06/2015 Fibromyalgia 01/27/2015 Generalized anxiety disorder 01/27/2015 Seizure disorder ([facility]) 01/27/2015 Major depressive disorder, r ecurrent, severe without psychotic features ([facility]) 01/27/2015 Overview (01/27/2015): Has therapist at [facility] HIV (human immunodeficiency virus infection) ([facility]) 01/27/2015 Chronic back pain 01/27/2015 Hepatitis [...] Plan of Treatment Not on file [place] Member Subscriber [facility] Name:Benjamin Fall Relation to Subscriber:Self Name:Benjamin Fall Payer ID:[id number] Group ID:Not on file Type:Medicaid Address: [address] DENTAL Care Teams Mercantile Reporter Relationship Specialty Start Date End Date Zora Arce PA-C [address] [place] [address] PCP - General 11/05/18
--- OUTSIDE RECORDS SUMMARY | 2025-04-13 09:27 | XMS_ITS | Clinical Summary ---
Author Organization 175 [facility] Address 175 [place] [address] Phone Care Team Providers Care Slate Mixer Name Role Phone Physician, Pcp Unknown Primary Care Provider Bina vailable Encounters Date Type Department Care Team Description 03/10/2025 Lab Requisition [facility] [address] [place] [address] MD Unspecified abnormal cytological findings in specimens from anus 03/09/2025 Lab Requisition [facility] [address] [place] [address] MD Candidal esophagitis ([facility], [facility]) from Last 3 Months Surgical History Surgery Date Site/Laterality Comments EYE SURGERY Left PROCEDURE: HISTORICAL EYE SURGERY OTHER SURGICAL HISTORY PROCEDURE: ---- OTHER ----; COMMENT: hemorrhoids Medical History Medical History Date Comments Seizures ([facility], [facility]) 06/29/2016 DX:Seizures ([facility] COMMENT: F/u with neuro at [place] Dr Costello HIV (human immunodeficiency virus infection) ([facility], [facility]) 06/29/2016 DX:HIV (human im munodeficiency virus infection) ([facility]); COMMENT: HIV dx in 1991, f/u Dr. Street Depression 06/29/2016 DX:Depression Anxiety 06/29/2016 DX:Anxiety; COMM ENT: F/u [facility] Chronic back pain 06/29/2016 [...] Upcoming Encounters Date Type Department Care Team ([facility] Contact Info) Description 05/05/2025 9:45 AM EDT Consult Orthopedic Surgery - [place] [address] 175 [facility] [address] [place] [address] Kb Benitez, BERNABE 175 [facility] [address] [place] [address] Health Maintenance Due Date Last Done Comments [...] Routine 03/09/2025 12:00 AM EDT Candidal esophagitis ([facility] V24[facility] V28) CULTURE MISCELLANEOUS Routine 03/09/2025 12:00 AM EDT Candidal esophagitis ([facility] V24, [facility] V28) CHLAMYDIA TRACHOMATIS AND NEISSERIA GONORRHOEAE PCR Routine 03/09/2025 12:00 AM EDT Candidal esophagitis ([facility] V24, [facility] V28) from Last 3 Months Results * [...] Yulia albicans(A) GALEN 03/18/2025 8:09 AM EDT [facility] Comment: Edited result: Previously reported as Yeast on 03/16/2025 at 1407 EDT. Swab Oral cavity structure / Unknown 03/09/2025 03/09/2025 6:57 PM EDT us Fabiola Street MD LAB MICROBIOLOGY - GENERA L ORDERABLES Final Result [facility] [address] [place] [address], [place] [phone] * (ABNORMAL) Culture miscellaneous (03/09/2025 12:00 AM EDT) Miscellaneous Culture Yulia albicans/dubl iniensis(A) GALEN 03/12/2025 10:54 AM EDT [facility] Comment: Edited result: Previously reported as Yeast on 2025 at 1140 EDT. Miscellaneous Culture Klebsiella pneumoniae ssp pneumoniae(A) GALEN 03/12/2025 10:54 AM EDT [facility] Comment: The organism value for [...] L ORDERABLES Final Result Performing Organization Address [facility] Co de Phone Number [facility] [address] [place] [address], [place] [phone] * Chlamydia trachomatis and Neisseria gonorrhoeae molecular [...] L ORDERABLES Final Result Performing Organization Address [facility] de Phone Number [facility] [address] [place] [address], [place] [phone] * Non-gynecologic cytology (03/09/2025 12:00 AM EDT) Final Diagnosis Specimen sent to [facility] for Anal cytology with HPV CoTest. Their interpretation is as follows: Anal, Rectum (ThinPrep): Satisfactory for Evaluation. Transformation zone components absent. Negative for Intraepithelial Lesion or Malignancy. Disclaimer This test has been modified from the director of elementary education's instructions. Its performance characteristics were determined by [facility] in a manner consistent with CLIA requirements. This test has not been cleared or approved by the U.S. Food and Drug Administration Report signed electronically by: Qi Lehman M.D. on 16 Mar 2025 at 13:55 at [facility], [address] [facility] (CLIA [id number]) HPV Anal Detect/Genotyping, PCR: High Risk HPV [...] was ordered in the context of a [facility] Non-LAMP SHADE JOINER Cytology case; this result should be interpreted within the context of the Non-LAMP SHADE JOINER cytology report. Resulted 12 Mar 2025 at 17:00 by [facility], [address] [facility] (CLIA [id number]) Full report attached. 03/17/2025 2:31 PM EDT [facility] Disclaimer Unless otherwise specified, all tissue is 10% NB formalin fixed and paraffin embedded. Technical cytopathology services provided by [facility], at [address] [place] [address] (CLIA # [id number]/Angel Villalobos MD, Accounting Professor.) 03/17/2025 2:31 PM EDT [facility] Brushing/Spatula Anal structure / Unknown 03/09/2025 03/10/2025 9:22 AM EDT us Fabiola [address] MD LAB CYTOLOGY ORDERABLES F inal Result [facility]) [facility] [address] [place] [address], from Last 3 Months [place] [id number] [place] [address] MEDICAID - [place] [employer] MEDICARE Member Subscriber Plan / Payer (Ef fective 2017-Present) Name:VICKIE GROVER Relation to Subscriber:Self Name:Vickie Fall Payer ID:[id number] Group ID:[id number] Type:Not on file Address: [address] [place] [address] Care Teams Slate Mixer Relationship Specialty Start Date End Date Physician, Pcp Unknown PCP - General 03/10/25
[2025-04-13 09:32] VITALS: PULSE 114; O2SAT 94
== END 2025-04-13 11:31 | disposition home or self-care (01) ==
LOC: HO.HPS 09:02
PROVIDERS: PCP Student in an Organized Health Care Education/Training Program; Visit Provider Nurse Practitioner Family
DX: R06.00 Dyspnea, unspecified (principal)

== ENCOUNTER → 2025-04-13 09:02 | Outpatient (BNVA) | payer OTHER, SELFPAY | PROVIDERS: PCP Student in an Organized Health Care Education/Training Program; Visit Provider Nurse Practitioner Family | DX: J86.9 Pyothorax without fistula (principal) | CPT/HCPCS: 94618 ==

== ENCOUNTER 2025-04-15 09:22 | Outpatient (AMB) | payer OTHER, SELFPAY ==
--- NOTE | 2025-04-15 09:39 | AM.OFFVISNUR ---
Intake Visit Reasons: Evenity #7 Allergies Seasonal Allergies Allergy (Intermediate, Verified 04/13/25 09:26) Eye Drainage codeine (From Tylenol-Codeine #3) Allergy (Mild, Verified 04/13/25 09:26) Rash levofloxacin (From Levaquin) Allergy (Mild, Verified 04/13/25 09:26) Rash metoclopramide (From Reglan) Allergy (Mild, Verified 04/13/25 09:26) Rash acetaminophen (Tylenol-Codeine #3) Allergy (Unknown, Verified 04/13/25 09:26) Rash Penicillins (PENICILLINS) Allergy (Unknown, Verified 04/13/25 09:26) Rash ibuprofen (From Motrin) Adverse Reaction (Unknown, Verified 04/13/25 09:26) Reflux Office Meds romosozumab-aqqg 210 mg/2.34 mL(105 mg/1.17 mL x2)subcutaneous syringe Performing Provider: Ritu Scott MD Performing Location: [facility] Endocrinology Administered by: Na Croft RN on 04/15/25 09:39 Dose Route Admin Location Dispensed Lot Number Expiration Date [facility] Information Resources Manager 210 mg subcut bilateral upper arms 2.34 mL [id number] 06/09/27 61109-822-20 AMGEN Total Dispensed Waste 2.34 mL 0 % Comments: Pt accompanied by SWIMMING POOL INSTALLER AND SERVICER who interpreted visit. No adverse reactions reported from previous injection. Pt tolerated injection well. Pt scheduled in 4 weeks for next appt. No further questions at this time. Assessment & Plan Assessment & Plan Orders: Orders AMB Romosozumab Injection Patient Supplied Today M81.0 - Age-related osteoporosis without current pathological fracture Coding
--- OUTSIDE RECORDS SUMMARY | 2025-04-15 09:43 | XMS_ITS | Clinical Summary ---
Author Organization 175 [facility] Address [address] [place] [address] Phone Care Team Providers Care Lint Cleaner Name Role Phone Physician, Pcp Unknown Primary Care Provider Bina vailable Encounters Date Type Department Care Team Description 03/10/[address] [facility] [address] [place] [address] MD Unspecified abnormal cytological findings in specimens from anus 03/09/[address] [facility] [address] [place] [address] MD Candidal esophagitis ([facility] V24, [facility] V28) from Last 3 Months Surgical History Surgery Date Site/Laterality Comments EYE SURGERY Left PROCEDURE: HISTORICAL EYE SURGERY OTHER SURGICAL HISTORY PROCEDURE: ---- OTHER ----; COMMENT: hemorrhoids Medical History Medical History Date Comments Seizures ([facility] V24, [facility] V28) 06/29/2016 DX:Seizures ([facility]); COMMENT: F/u with neuro at [place] [address] Costello HIV (human immunodeficiency virus infection) ([facility] V24, [facility] V28) 06/29/2016 DX:HIV (human im munodeficiency virus infection) ([facility]); COMMENT: HIV dx in 1991, f/u Dr. [...] Upcoming Encounters Date Type Department Care Team ([facility] Contact Info) Description 05/05/2025 9:45 AM EDT Consult Orthopedic Surgery - [place] [address] 175 [facility] [address] [place] [address] Kb Benitez, BERNABE 175 [facility] [address] [place] [address] Health Maintenance Due Date Last Done Comments [...] Routine 03/09/2025 12:00 AM EDT Candidal esophagitis ([facility] V24, [facility] V28) CULTURE MISCELLANEOUS Routine 03/09/2025 12:00 AM EDT Candidal esophagitis ([facility] V24, [facility] V28) CHLAMYDIA TRACHOMATIS AND NEISSERIA GONORRHOEAE PCR Routine 03/09/2025 12:00 AM EDT Candidal esophagitis ([facility] V24, [facility] V28) from Last 3 Months Results * [...] Yulia albicans(A) GALEN 03/18/2025 8:09 AM EDT [facility] Comment: Edited result: Previously reported as Yeast on 03/16/2025 at 1407 EDT. Swab Oral cavity structure / Unknown 03/09/2025 03/09/2025 6:57 PM EDT us Fabiola Street MD LAB MICROBIOLOGY - GENERA L ORDERABLES Final Result [facility] [address] [place] [address], [place] [phone] * (ABNORMAL) Culture miscellaneous (03/09/2025 12:00 AM EDT) Miscellaneous Culture Yulia albicans/dubl iniensis(A) GALEN 03/12/2025 10:54 AM EDT [facility] Comment: Edited result: Previously reported as Yeast on 2025 at 1140 EDT. Miscellaneous Culture Klebsiella pneumoniae ssp pneumoniae(A) GALEN 03/12/2025 10:54 AM EDT [facility] Comment: The organism value for this [...] Result Performing Organization Address [facility] Co de Phone Number [facility] [address] [place] [address], [place] [phone] * Chlamydia trachomatis and Neisseria gonorrhoeae molecular study (03/09/2025 12:00 AM EDT) Neisseria gonorrhoeae PCR Negative Negative LAB MOLECULAR DIAGNOSTICS METHOD 03/10/2025 8:49 AM EDT [facility] Chlamydia trachomatis PCR Negative Negative LAB MOLECULAR DIAGNOSTICS METHOD 03/10/2025 8:49 AM EDT [facility] Swab Rectum structure / Unknown 03/09/2025 03/09/2025 6:[address] MD LAB MICROBIOLOGY - GENERA L ORDERABLES Final Result Performing Organization Address [facility] de Phone Number [facility] [address] [place] [address], [place] [phone] * Non-gynecologic cytology (03/09/2025 12:00 AM EDT) Final Diagnosis Specimen sent to [facility] for Anal cytology with HPV CoTest. Their interpretation is as follows: Anal, Rectum (ThinPrep): Satisfactory for Evaluation. Transformation zone components absent. Negative for Intraepithelial Lesion or Malignancy. Disclaimer This test has been modified from the filler picker's instructions. Its performance characteristics were determined by [facility] in a manner consistent with CLIA requirements. This test has not been cleared or approved by the U.S. Food and Drug Administration Report signed electronically by: Qi Lehman M.D. on 16 Mar 2025 at 13:55 at [facility], [address] [facility] (CLIA [id number]) HPV Anal Detect/Genotyping, PCR: High Risk HPV [...] in the context of a [facility] Non-SHOPPING INVESTIGATOR Cytology case; this result should be interpreted within the context of the Non-SHOPPING INVESTIGATOR cytology report. Resulted 12 Mar 2025 at 17:00 by [facility], [address] [facility] (CLIA [id number]) Full report attached. 03/17/2025 2:31 PM EDT [facility] Disclaimer Unless otherwise specified, all tissue is 10% NB formalin fixed and paraffin embedded. Technical cytopathology services provided by [facility], at [address] [place] [address] (CLIA # [id number]/Angel Villalobos MD, Pellet Preparation Operator.) 03/17/2025 2:31 PM EDT [facility] Brushing/Spatula Anal structure / Unknown 03/09/2025 03/10/2025 9:22 AM EDT us [address]iola [address] MD LAB CYTOLOGY ORDERABLES F inal Result [facility] [address] [place] [address], from Last 3 Mon[address] [place] [address] [place] [address] MEDICAID - [place] [employer] MEDICARE Member Subscriber Plan / Payer (Ef fective 2017-Present) Name:VICKIE GROVER Relation to Subscriber:Self Name:Vickie Fall Payer ID:[id number] Group ID:[id number] Type:Not on file Address: [address] [place] [address] Care Teams Lint Cleaner Relationship Specialty Start Date End Date Physician, Pcp Unknown PCP - General 03/10/25
--- OUTSIDE RECORDS SUMMARY | 2025-04-15 09:44 | XMS_ITS | Clinical Summary ---
Author Organization [facility] Address [address] [address] Phone Care Team Providers Care Medical Scientist Name Role Phone Gaetano Gibbons MD Primary Care Provider [phone] Social History Tobacco Use Types Packs/Day Years [...] Medical Devices Not on file Care Teams Medical Scientist Relationship Specialty Start Date End Date Gaetano Gibbons MD [address] [place] [address], [address] [place] [address] [email or web address] PCP - General Family Medicine 07/02/23 Additional Source Comments The information contained in this document represents components of the legal health record. It is not the complete legal health record.[facility]
--- OUTSIDE RECORDS SUMMARY | 2025-04-15 09:44 | XMS_ITS | Clinical Summary ---
Author Organization [facility] Address [address] [place] [address] Care Team Providers Care Grants Administrator Name Role Phone Zora Arce PA-C Primary Care Provider [phone] Source Comments PLEASE NOTE, if this patient [...] EC tabletIndications:H IV (human immunodeficiency virus infection) ([facility]) Take 1 Tab by mouth once [...] NUTRITION) liquidIndications:H IV (human immunodeficiency virus infection) ([facility]) Take 1 Can by mouth 3 (three) [...] 0.65 % nasal sprayIndications:As thma, intermittent, uncomplicated ([facility]) Place 1 Roxana into the nostril(s) as needed for congestion. 60 mL 6 016 Active omeprazole (PRILOSEC) [address] capsuleIndications: Dyspepsia Take 1 Cap by mouth every morning before breakfast. Do not crush or chew. 30 Cap 3 016 Active albuterol sulfate hfa (PROAIR HFA) 90 mcg/actuation inhalerIndications: Asthma, intermittent, uncomplicated ([facility]) Inhale 2 Puffs into the lungs every 4 (four) hours as needed for shortness of breath. Int asthma 18 g 6 016 Active Active Problems Problem Noted Date Diagnosed Date Asthma, mild intermittent ([facility]) 05/06/2015 Fibromyalgia 01/27/2015 Generalized anxiety disorder 01/27/2015 Seizure disorder ([facility]) 01/27/2015 Major depressive disorder, r ecurrent, severe without psychotic features ([facility]) 01/27/2015 Overview (01/27/2015): Has therapist at [facility] HIV (human immunodeficiency virus infection) ([facility]) 01/27/2015 Chronic back pain 01/27/2015 Hepatitis C [...] Plan of Treatment [place] on file [place] Member Subscriber Plan / [facility] Name:Benjamin Fall Relation to Subscriber:Self Name:Benjamin Fall Payer ID:[id number] Group ID:Not on file Type:Medicaid Address: [address] DENTAL Care Teams Grants Administrator Relationship Specialty Start Date End Date Zora Arec PA-C [address] [place] [address] PCP - General 11/05/18
== END 2025-04-15 09:38 | disposition home or self-care (01) ==
LOC: HO.ENCR 09:23
PROVIDERS: PCP Student in an Organized Health Care Education/Training Program; Visit Provider Student in an Organized Health Care Education/Training Program
DX: M81.0 Age-related osteoporosis without current pathological fracture (principal)

== ENCOUNTER → 2025-04-15 09:22 | Outpatient (BNVA) | payer OTHER, SELFPAY | PROVIDERS: PCP Student in an Organized Health Care Education/Training Program; Visit Provider Student in an Organized Health Care Education/Training Program | DX: M81.0 Age-related osteoporosis without current pathological fracture (principal) | CPT/HCPCS: 96372; J3111 ==

== ENCOUNTER 2025-04-17 09:06 | Outpatient (RCR) | payer OTHER, SELFPAY ==
--- NOTE | 2025-03-27 13:56 | MHC.PT.EP ---
[facility] [place] Office [place] Office [place] Office [address] Bela Summers [address] [phone] F: [phone] F: [phone] F: [phone] F: [phone] Physical Therapy Plan of Care Date of Evaluation: 03/27/25 Date of Surgery: Diagnosis: ENDER KNEE OA Assessment: 60 YO MALE W MULTIPLE MEDICAL CONDITIONS, REF FORE ENDER KNEE OA- HE APPARENTLY WAS D/C FROM HOME PT 2 WKS AGO, HE IS NON-COMPLIANT W HIS THER EXER AND HE IS NOT USING THE BRACES PROVIDED AT HIS ORTHO APPT. TODAY AT THE EVAL, EDUC THE Pt AND HIS TICKET COLLECTOR OR USHER RE IMPORTANCE OF CONTIMUITY W HEP FOR OPTIMAL RESULTS W PT AND SX MANAGEMENT. VICKIE HAS DECR POSTURAL AWARENESS, LIMITED ROM ENDER KNEES, SIGNIF ROM DEFICTS Lt > Rt HIP, STRENGTH DEFICIT IN LEs, AND FLUCTUATING ENDER KNEE PAIN. Frequency and Duration: The patient will be seen 1-2 x WK X 3 WKS Short Term Goals: DEV HEP IMPROVE FLEXIB IN POSTERIOR CHAIN, INCR TERMINAL KNEE EXT, HIP EXT Senior Care Goals: Pt AND HIS TICKET COLLECTOR OR USHER INDEP W HEP Pt DEMON MORE EFFICIENT GAIT MECHANICS Pt INDEP W ASCENDING STAIRS-> INCR LEs FUNCT STRENGTH Treatment Plan: Modalities to reduce pain, spasms and effusion. Manual therapy to restore motion and function. Therapeutic exercise to improve strength and flexibility. Neuromuscular re-education for posture and balance. Therapeutic activities to return to functional activities of daily living. Electronically signed by: GALA HO,PT Please sign and return to therapist. Thank you for your referral.
--- NOTE | 2025-04-20 10:42 | MHC.PT.DC ---
[facility] [place] Office [place] Office [place] Office [address] Jyoti Summers [address] [phone] F: [phone] F: [phone] F: [phone] F: [phone] Physical Therapy Discharge Report Diagnosis: ENDER KNEE OA Date of Surgery: Date of Evaluation: 03/27/25 Date of Discharge: 04/20/25 Treatments to Date: 4 Cancellations to Date: No Shows to Date: Discharge Status: Improved Function Independent with HEP Discharge Summary: 04/17 Pt fatigued after gentle seated ex. with multiple seated rests during session. pt is challenged with xfers supine<>sit and rolling. Pt is medically compromised and is beginning home care for ex and mobility training. D/C to HEP today. VICKIE PRESENTED WITH HIS MARINE EQUIPMENT RESEARCH ENGINEER, STATING HE WAS ABOUT TO RECEIVE SERVICES AT HOME, HE IS USUALLY ON CONTINUOUS O2... HE AND HIS MARINE EQUIPMENT RESEARCH ENGINEER HAVE A DECENT COMPREHENSION OF HEP AND IS READY FOR D/C AT THIS TIME, CONTINUING HIS CARE IN HIS HOME ENVIRONMENT- HE HAS OVERALL DECR TOLERANCE TO EXERCISE WELL W FUNCT MOB , WE AGREE W TRANSITION TO HOME CARE SERVICES FOR THIS Pt Electronically signed by: GALA HO,PT Please sign and return to therapist. Thank you for your referral.
== END 2025-04-20 10:43 | disposition home or self-care (01) ==
LOC: HO.PT 09:06
PROVIDERS: PCP Student in an Organized Health Care Education/Training Program; Visit Provider Physician Assistant
DX: M17.0 Bilateral primary osteoarthritis of knee (principal)
CPT/HCPCS: 97110; 97162; 97530

== ENCOUNTER 2025-04-23 11:23 | Inpatient (IN) | payer OTHER, SELFPAY ==
--- OUTSIDE RECORDS SUMMARY | 2023-12-14 10:20 | XMS_ITS ---
Demographics Address [address] [place] [address] Preferred Language es Marital Status Unknown Muslim Affiliation Unknown Race White Ethnic Group Not or Lati no Author Organization [facility] Address [address] [place] [id number] Care Team Providers Care [employer] Architect Name Role Phone Terese Rivera Primary Care Provider Pepe Dangelo Unavailable [phone] REASON FOR VISIT Patient presents today for a colon screening Medications Medication SIG (Take, Route, Frequency, Duration) Notes Start Date End Date Status Dilantin 100 MG 1 capsule Orally TID for 30 day(s) Active Xanax 2mg BID Active Colyte with Flavor Packs 227.1 GM as directed Orally as directed for 1 day(s) 02/26/2013 Active KlonoPIN 2 MG 1 tablet Orally TID Active Multi Vitamin/Minerals 09/10/20242024 Active NexIUM 40mg 09/10/2024 09/10/2024 Active Xanax 09/10/2024 09/10/2024 Active Atripla 09/10/2024 09/10/2024 Active Aleve 09/10/2024 09/10/2024 Active Aspirin 325mg 09/10/2024 09/10/2024 Acti ve Encounters Encounter Location Date Provider Diagnosis [facility] [address] [place] [id number] 12/14/2023 Pepe Stephenson Plan Of Treatment No Information Progress Notes * VICKIE DUFFYDOB:1965 (60 yo M)Acc No.[id number]:12/14/2023 Progress Notes Patient: VICKIE ZALDIVAR Provider: Robby Stephenson MD :1965 A ge:58 Y S ex:Male Date:12/14/2023 Address:[facility] [address], [place], [id number] Pcp:Terese Keenan Subjective: * Chief Complaints: * 1 . Patient presents today for a colon screening. * Medical History: * Medications: T aking NexIUM 40mg , Taking Atripla , Taking Xanax , Taking Aspirin 325mg , Taking Aleve , Taking Multi Vitamin/Minerals , Taking Xanax 2mg BID , Taking Dilantin 100 MG Capsule 1 capsule Orally TID , Taking KlonoPIN 2 MG Tablet 1 tablet Orally TID , Taking Colyte with Flavor Packs 227.1 GM Solution Reconstituted as directed Orally as directed Objective: * Vitals: Assessment: Plan: * Treatment: * * The named appointment provid er may or may not be the originator of this progress note, and it is not deemed complete until electronically signed by the appointment provider. Sign off status: Pending * Provider: Robby Stephenson MD Date: 12/14/2023 Generated for Darryl ng/Hannah/Alexitting on: 04/23/2025 12:58 PM EDT
[2025-04-23] VITALS (12 sets, daily range): BP systolic 115–141; BP diastolic 53–86; PULSE 57–85; RESP 14–23; TEMP 36.8–37; O2SAT 88–97; BMI 22.9
--- NOTE | ~2025-04-23 | CT_ITS ---
EXAMINATION: CT ANGIOGRAM CHEST CLINICAL INFORMATION: Reason for Exam-Dyspnea, hypoxia, hemoptysis R/O PE, TB COMPARISON: Chest radiograph on April 06, 2025. Chest CT on September 16, 2024 TECHNIQUE: Multiple axial images were obtained through the chest after the administration of 65 cc of Omnipaque 350 intravenous contrast. Extensive vascular post-processing including two-dimensional and three-dimensional reformatted images were created and reviewed on an independent workstation. This CT examination was performed using dose optimization techniques as appropriate, variously including the following: *Automated exposure control *Adjustment of mA and/or kV according to patient size (this includes techniques or standardized protocols for targeted exams where dose is matched to indication/reason for exam; i.e. extremities or head) *Use of iterative reconstruction technique FINDINGS: Pulmonary arteries: Main pulmonary artery is normal caliber measuring 2.8 cm. There are thin linear nonocclusive filling defects within the segmental/subsegmental branches of the right upper lobe (for example 8:43), right lower lobe (8:75), left upper lobe (19:57, 8:34) and left lower lobe (8:60). Device/tubes/lines: None Lungs: Somewhat triangular shaped consolidation involving the posterior aspect of the left lower lobe. Linear atelectasis/scarring in the left lung base. Dependent haziness throughout both lungs, probably due to underaeration. No cavitary lesions. Pleura: No pleural effusion or pneumothorax. Mediastinum: No obvious thyroid nodules. No cardiomegaly. No pericardial effusion. Small amount of fluid/debris is seen in the mid/distal aspect of the esophagus suggests gastroesophageal reflux. Lymph nodes: No bulky lymphadenopathy. Upper abdomen: Punctate calcifications in the right kidney. Chest Wall: Unremarkable. CT/CT angio chest PE protocol IMPRESSION: 1. Findings of nonocclusive segmental/subsegmental filling defects involving the right upper and lower lobes and left upper and lower lobes, with features that suggest chronic pulmonary embolism. No CT evidence of pulmonary hypertension. 2. Minor consolidation of the right lower lobe, most likely pneumonia. 3. No findings to suggest tuberculosis. Findings regarding presence of probably chronic pulmonary embolism communicated via secure message system to the ordering physician Dr. Mukherjee at the time of interpretation of this study, with prompt acknowledgment received. Electronically signed by: Maria Dolores Yancey MD 04/23/2025 03:36 PM EDT RP
--- NOTE | 2025-04-23 11:47 | ECG_ITS ---
Test Reason : SOB Blood Pressure : */* mmHG Vent. Rate : 71 BPM Atrial Rate : 71 BPM P-R Int : 134 ms QRS Dur : 100 ms QT Int : 402 ms P-R-T Axes : 53 53 50 degrees QTcB Int : 436 ms Normal sinus rhythm Incomplete right bundle branch block Cannot rule out Anterior infarct , age undetermined Abnormal ECG When compared with ECG of 27-Jan-2025 19:56, No significant change was found Referred By: Lavon Mukherjee Electronically Signed By: Daniel Keller
--- NOTE | 2025-04-23 11:47 | ED.SOB ---
HPI - SOB/Dyspnea General Chief Complaint: Dyspnea Stated Complaint: SOB FROM [facility], HOME O2 @2LPM RECENT PNA PER EMS Time Seen by Provider: 04/23/25 11:25 Source: patient Mode of arrival: EMS Limitations: language barrier (Danish speaking only, [facility] translator/interpreter used) History of Present Illness ED Provider: Dr. Lavon Mukherjee HPI Narrative: 60-year-old male with a history of fibromyalgia, pulmonary embolism, nocturnal hypoxia, asthma, COPD, extrapyramidal movement disorder, osteoarthritis, hypogonadism, hypo quarter of solids him, HIV disease, lung abscess, substance use disorder who presents emergency department for evaluation of shortness of breath and cough productive of bloody sputum x4 days. The patient went to an urgent care clinic today and his room air oxygen was 86%. On 2 L his O2 saturation came up to 88% and the patient was then placed on a non-rebreather 10 L/min in his O2 saturation came up to 97%. The patient states that he is not taking antibiotics at this time and his primary care doctor was concerned that he may have pneumonia. The patient denied fever, chills, night sweats. He has not had any weight loss but he states that he has gained 26 lb over the last 3 months (118 lb to 144 lb). He denied chest pain, shortness of breath, dyspnea on exertion, nausea, vomiting, diarrhea, dark stools or bloody stools. He denied myalgias or arthralgias. Patient states he is compliant with his HIV medications and had a recent T4 and viral load done by his PCP but he does not know the results. 04/02/2024 his absolute CD4 count was low at 167. The patient has a G-tube for medications and for feeding that was placed in 2022. The patient's FI[employer] INSTALLER, Ashtyn Olvera who can be reached at , states the patient has been having difficulty swallowing for proximally 1 month and he has been getting most of his medications and feedings through the G-tube. which is gotten progressively worse. He has had no difficulty urinating but he has been constipated for 4 days. Related Data Home Medications ?Medication ?Instructions ?Recorded ?Confirmed calcium 600 mg (as 1 tab feeding tube BID@1200,1800 12/16/23 03/24/25 carbonate)-vitamin D3 20 mcg (800 unit) tablet ferrous gluconate 324 mg (38 mg 324 mg feeding tube BID 12/16/23 03/24/25 iron) tablet risperidone 3 mg tablet 3 mg feeding tube BEDTIME 12/16/23 03/24/25 omeprazole 10 mg capsule,delayed 10 mg feeding tube DAILY@0630 PRN 01/10/24 03/24/25 release Acid Reflux albuterol sulfate 90 mcg/actuation 2 puff inhalation Q6H PRN wheezing 03/07/24 03/24/25 aerosol inhaler (Ventolin HFA) somatropin 6 mg subcutaneous 6 mg subcut DAILY 05/07/24 03/24/25 solution (Serostim) acetaminophen 325 mg tablet 650 mg PO Q6H PRN pain 01/27/25 03/24/25 ascorbic acid (vitamin C) 250 mg 250 mg PO DAILY 01/27/25 03/24/25 tablet brimonidine 0.2 %-timolol 0.5 % 1 drp ophthalmic (eye) BID 01/27/25 03/24/25 eye drops (Combigan) clotrimazole 10 mg klaudia 10 mg PO TID candidiasis 01/27/25 03/24/25 diphenhydramine HCl 25 mg capsule 25 - 50 mg PO DAILY PRN Sleep 01/27/25 03/24/25 (Banophen) gabapentin 600 mg tablet 600 mg PO TID 01/27/25 03/24/25 megestrol 625 mg/5 mL (125 mg/mL) 5 ml feeding tube DAILY daily 01/27/25 03/24/25 oral suspension netarsudil 0.02 %-latanoprost 1 drp ophthalmic (eye) BEDTIME 01/27/25 03/24/25 0.005 % eye drops (Rocklatan) pilocarpine HCl 5 mg tablet 5 mg PO TID 01/27/25 03/24/25 romosozumab-aqqg 210 mg/2.34 210 mg subcut QMONTH 01/27/25 03/24/25 mL(105 mg/1.17 mL x2)subcutaneous syringe ([facility]) linezolid 600 mg tablet 600 mg PO BID 03/20/25 03/24/25 Previous Rx's ?Medication ?Instructions ?Recorded bictegravir 50 mg-emtricitabine 1 tab PO DAILY #14 tabs 08/02/23 200 mg-tenofovir alafenam 25 mg tablet (Biktarvy) mirtazapine 30 mg tablet 60 mg (2 x 30 mg) feeding tube 08/02/23 BEDTIME #20 tabs tramadol 50 mg tablet 50 mg feeding tube BID PRN Pain 03/20/24 (Scale Score 7-10) #20 tabs tamsulosin 0.4 mg capsule (Flomax) 0.4 mg PO BEDTIME 30 days #30 caps 12/17/24 clotrimazole 10 mg klaudia 10 mg mucous membrane 5XD #30 tabs 02/02/25 budesonide 0.25 mg/2 mL suspension 0.25 mg (2 mL) inhalation BID 90 02/17/25 for nebulization days #360 mL tadalafil 5 mg tablet (Cialis) 5 mg PO DAILY 90 days #90 tabs 03/12/25 albuterol sulfate 2.5 mg/3 mL 2.5 mg (3 mL) inhalation Q4-6H PRN 04/06/25 (0.083 %) solution for nebulization shortness of breath or wheezing #180 mL doxycycline hyclate 100 mg capsule 100 mg PO BID #14 caps 04/06/25 clonazepam 1 mg tablet (Klonopin) 1 mg PO DAILY 30 days #30 tabs 04/17/25 Allergies Allergy/AdvReac Type Severity Reaction Status Date / Time Seasonal Allergies Allergy Intermediate Eye Verified 04/23/25 11:50 Drainage codeine (From Allergy Mild Rash Verified 04/23/25 11:50 Tylenol-Codeine #3) levofloxacin (From Levaquin) Allergy Mild Rash Verified 04/23/25 11:50 metoclopramide (From Reglan) Allergy Mild Rash Verified 04/23/25 11:50 acetaminophen Allergy Unknown Rash Verified 04/23/25 11:50 (Tylenol-Codeine #3) Penicillins (PENICILLINS) Allergy Unknown Rash Verified 04/23/25 11:50 ibuprofen (From Motrin) AdvReac Unknown Reflux Verified 04/23/25 11:50 Review of Systems Review of Systems: Yes all other systems are reviewed and are negative [facility] Past Medical History [facility] Narrative: Social history: Patient has a [employer] INSTALLER who cares for him, Ashtyn Olvera who can be reached at . The patient denies tobacco, alcohol and drug use. Medical History (Updated 04/23/25 @ 16:34 by Lavon Mukherjee MD) Fibromyalgia Hepatitis C virus infection without hepatic coma Myalgia History of pulmonary embolism Lower urinary tract symptoms Hypogonadism in male Low serum cortisol level Adrenal hyperplasia Osteoporosis Height loss HIV (human immunodeficiency virus infection) Asthma Dysphagia Adult failure to thrive Adult failure to thrive Multiple rib fractures History of empyema of pleura (01/05/23) Hypertension Closed fracture of leg Hepatitis C Kidney stones Pleuritic chest pain Pneumonia Substance abuse Hemorrhoids Depression HIV (human immunodeficiency virus infection) Asthma Surgical History H/O hemorrhoidectomy Family History Family History Maternal Grandmother Lung cancer Maternal Aunt Lung cancer Mother Lung cancer Social History Social History Household Members: Caregiver Household Members Other:: FI[employer] INSTALLER Housing: Apartment Do you presently have visiting nurse or other home services: Yes Alcohol intake: never Patient Tobacco Use Status: Former Tobacco user Tobacco use type: Cigarette Smoked in Last 30 Days: No e-Cigarette/Vaping Use: Never Used Second Hand Smoke Exposure: No Substance Use Type: Crack/Cocaine Advance Directives: Yes Advance Directives on File: Yes Advance Directives Date on File: 04/25/21 Do you have a plan to hurt others: No Plan service: No Current occupational status: disabled Current occupation: [employer] Gender identity: Male Physical Exam Vital Signs: Vital Signs: Last Vital Signs Temp 98.6 F 04/23/25 11:54 Pulse 82 04/23/25 16:00 Resp 22 H 04/23/25 16:00 BP 134/84 04/23/25 16:00 Pulse Ox 91 L 04/23/25 16:00 O2 Del Method Nasal Cannula 04/23/25 16:00 Oxygen Flow Rate 10 04/23/25 11:48 BMI result Body Mass Index 22.9 Exam: General: Awake, the patient is on a non-rebreather mask at 10 L/min, awake, answers questions appropriately Head: Normocephalic, atraumatic EENT: PERRL, Lids normal, sclera normal, conjunctiva normal, nose normal , ears normal, throat without erythema or exudates Neck: Supple, no adenopathy Lung: breath sounds symmetric, diffuse rhonchi, diffuse wheezing, rales at bases Chest: symmetric movement, nontender Heart: regular rate and rhythm, normal S1, S2 no murmurs or rubs Abdomen: soft, non-tender, nondistended, normal bowel sounds, G-tube with dark colored material in the tube, [employer]ER states that this has a normal colored for his gastric secretions-we will send for gastric occult blood testing Back: no vertebral tenderness, no CVAT Extremities: no deformities, moves all extremities symmetrically Neuro: Awake, alert, oriented, normal speech, cranial nerves intact, moves all extremities symmetrically Psych: Pleasant, cooperative Medications Administered Discontinued Medications Generic Name Dose Route Start Last Admin Trade Name Freq PRN Reason Stop Dose Admin Albuterol Sulfate 2.5 mg/ 0 mg 04/23/25 12:11 04/23/25 12:20 Albuterol/Ipratropium 3 ml INHALE 04/23/25 12:12 1 dose ONCE ONE Administration Sodium Chloride 1,000 mls @ 999 mls/hr 04/23/25 11:47 04/23/25 14:31 Ns IV 04/23/25 12:47 Infused .Q1H1M STA Infusion Cefepime HCl 2 gm in 50 mls @ 100 mls/hr 04/23/25 12:22 04/23/25 13:15 Maxipime IV 04/23/25 12:51 Infused ONCE ONE Infusion Azithromycin 500 mg/ Sodium 250 mls @ 125 mls/hr 04/23/25 12:22 04/23/25 15:49 Chloride IV 04/23/25 14:21 125 mls/hr ONCE ONE Infusion Iohexol 100 ml 04/23/25 14:39 04/23/25 14:39 Iohexol 350 Mg/Ml 100 Ml Infus..Btl IV 04/23/25 14:40 65 ml ONCE ONE Administration Methylprednisolone Sodium Succinate 125 mg 04/23/25 11:47 04/23/25 13:08 Methylprednisolone Sod Succ 125 Mg/2 Ml Vial IVPUSH 04/23/25 11:48 125 mg ONCE ONE Administration Medical Decision Making Medical Decision Making MDM Narrative: 60-year-old male with a history of fibromyalgia, pulmonary embolism, nocturnal hypoxia, asthma, COPD, extrapyramidal movement disorder, osteoarthritis, hypogonadism, hypo quarter of solids him, HIV disease, lung abscess, substance use disorder who presents emergency department for evaluation of shortness of breath and cough productive of bloody sputum x4 days. The patient went to an urgent care clinic today and his room air oxygen was 86%. On 2 L his O2 saturation came up to 88% and the patient was then placed on a non-rebreather 10 L/min in his O2 saturation came up to 97%. The patient states that he is not taking antibiotics at this time and his primary care doctor was concerned that he may have pneumonia. The patient denied fever, chills, night sweats. He has not had any weight loss but he states that he has gained 26 lb over the last 3 months (118 lb to 144 lb). He denied chest pain, shortness of breath, dyspnea on exertion, night sweats, nausea, vomiting, diarrhea, dark stools or bloody stools. He denied myalgias or arthralgias. Vital signs were normal with an O2 saturation of 96% on a non-rebreather mask. Lung exam revealed diffuse wheezing, diffuse rhonchi with rales at the bases. Patient has a G-tube in his abdomen which has dark fluid in-sent for occult blood testing. 12:24 Differential diagnosis: ?Includes but is not limited to pneumonia, aspiration pneumonia, opportunistic infections, tuberculosis, pulmonary embolism, asthma exacerbation, congestive heart failure myocardial infarction, myocardial ischemia, electrolyte abnormalities, anemia Course: 12:24 The patient's presentation is concerning since he has hemoptysis and he is HIV positive. Patient states he is compliant with the its HIV medications however I and concerned that he may be immunocompromise , therefore he is at high-risk for opportunistic infections and tuberculosis. The patient was placed on airborne respiratory precautions and will be moves her private room negative pressure room. I did order sputum for AFB, T-spot and MTB rifampin resistance PCR testing CD4 count and viral load testing. I also ordered a pneumonia and cardiac workup.. Given his hemoptysis, I will obtain a CT pulmonary angiogram PE protocol. Patient has multiple antibiotic allergies including penicillin and levofloxacin. Patient was ordered to get normal saline IV x1 L, cefepime 2 g IV and azithromycin 500 mg IV. I also ordered bronchodilator protocol, Solu-Medrol 125 mg IV. 15:16 My independent interpretation patient's laboratory evaluation is as follows: WBC normal 7500. PTT low 23.6. D-dimer elevated 1161. VBG revealed a normal pH of 7.37 with a an elevated pCO2 of 53 and an elevated bicarb of 31. AST and ALT were elevated 49 and 41. ESR was elevated 16. CRP was normal at 0.44. TSH was normal 1.75. Gastric occult blood from G-tube was negative for blood. Ethanol was below detectable limits. COVID-19, influenza and RSV tests were negative. Lactic acid was normal at 1.4. 16:16 CT angiogram revealed chronic pulmonary emboli and right lower lobe consolidation. No evidence for TB noted by the radiologist. Patient is at high-risk for aspiration and I suspect that he may have an aspiration pneumonia. Patient will need to be hospitalized for further treatment of his pneumonia. I will discuss treatment of chronic pulmonary embolism with the admitting hospitalist. 16:28 Did discuss the patient's presentation over tiger text with the covering hospitalist, Dr. Daly. He states that they will start oral anticoagulants for his chronic PEs. Patient will be kept in respiratory isolation until TB can be ruled out. Admission/Observation Consideration of admission/observation: Escalation of care including admission/observation considered (Yes) Lab Data MDM Lab Attestation statement: I reviewed the patient's lab results. 04/23/25 12:17 04/23/25 12:18 Labs: Lab Results 04/23/25 04/23/25 04/23/25 Range/Units 12:17 12:18 12:31 WBC 7.5 (4.8-10.8) X10*3/uL RBC 4.33 L (4.60-5.80) X10*6/uL Hgb 14.8 (14.0-18.0) g/dl Hct 43.1 (42.0-52.0) % MCV 99.5 H (80.0-98.0) fL MCH 34.2 H (27.0-33.0) pg MCHC 34.3 (31.0-36.0) g/dl RDW 14.4 (11.0-16.0) % Plt Count 223 (160-400) X10*3/uL MPV 11.1 (9.4-12.4) fL Immature Gran % (Auto) 2.7 H (0.0-0.4) % Neut % (Auto) 56.7 (45-73) % Lymph % (Auto) 27.7 (20-40) % [place] % (Auto) 11.6 H (2-11) % Eos % (Auto) 0.9 (0-4) % Baso % (Auto) 0.4 (0-2) % Lymph # (Auto) 2.1 (1.2-4.9) X10*3/uL [place] # (Auto) 0.9 (0.1-1.2) X10*3/uL Eos # (Auto) 0.1 (0.0-0.4) X10*3/uL Baso # (Auto) 0.0 (0.0-0.2) X10*3/uL Abs Immat Gran (auto) 0.20 H (0.00-0.03) X10*3/uL Absolute Neuts (auto) 4.2 (2.0-8.3) x10*3/uL Absolute Nucleated RBC 0.000 (0.0-0.012) X10*3/uL Nucleated RBC % (auto) 0.0 (0.0-0.2) /100WBC ESR 16 H (0-15) MM/HR PT (10.9-12.4) SEC INR (0.9-1.1) APTT (26.7-34.1) SEC D-Dimer High Sensitivty NG/ML VBG pH 7.37 (7.32-7.43) VBG pCO2 53 mmHg VBG pO2 33 mmHg VBG HCO3 31 H (22-26) mmol/L VBG O2 Saturation 46.0 % VBG Base Excess 4.8 mmol/L Sodium 143 (135-145) mmol/L Potassium 4.5 (3.3-5.1) mmol/L Chloride 107 (96-108) mmol/L Carbon Dioxide 26 (22-29) mmol/L Anion Gap 15 (12-20) BUN 8 L (9-16) mg/dL Creatinine 1.07 (0.5-1.4) mg/dL Estim Creat Clear Calc 63.0 Estimated GFR > 60 Random Glucose 93 (60-115) mg/dL Lactic Acid (0.5-2.0) mmol/L Calcium 9.7 D (8.4-10.2) mg/dL Magnesium 2.4 (1.6-2.6) mg/dL Total Bilirubin 0.3 (0.0-1.0) mg/dL AST 49 H (5-37) U/L ALT 41 H (0-40) U/L Alkaline Phosphatase 56 (39-117) U/L Total Creatine Kinase 147 (38-174) U/L Troponin I High Sens 3.4 (<3.5-35.0) ng/L C-Reactive Protein 0.44 (< or = 0.50) mg/dL B-Natriuretic Peptide 16 (<100) pg/mL Total Protein 7.7 (6.5-8.0) g/dL Albumin 4.3 (3.5-5.0) g/dL Lipase 6 L (8-78) U/L TSH 1.75 (0.32-4.0) uIU/mL Gastric Occult Blood (NEG) Urine Opiates Screen (Not Detect) Ur Buprenorphine Scrn (Not Detect) ng/mL Ur Oxycodone Screen (Not Detect) ng/mL Urine Methadone Screen (Not Detect) ng/mL Urine Fentanyl Screen (Not Detect) Ur Barbiturates Screen (Not Detect) Ur Phencyclidine Scrn (Not Detect) Ur Amphetamines Screen (Not Detect) U Benzodiazepines Scrn (Not Detect) Urine Cocaine Screen (Not Detect) U Marijuana (THC) Screen (Not Detect) Ethyl Alcohol < 10 mg/dL Influenza Type A (PCR) (Negative) Influenza Type B (PCR) (Negative) RSV RNA Qual (PCR) (Negative) SARS-CoV-2 RNA (RT-PCR) (Negative) 04/23/25 04/23/25 04/23/25 Range/Units 12:57 13:06 13:38 WBC (4.8-10.8) X10*3/uL RBC (4.60-5.80) X10*6/uL Hgb (14.0-18.0) g/dl Hct (42.0-52.0) % MCV (80.0-98.0) fL MCH (27.0-33.0) pg MCHC (31.0-36.0) g/dl RDW (11.0-16.0) % Plt Count (160-400) X10*3/uL MPV (9.4-12.4) fL Immature Gran % (Auto) (0.0-0.4) % Neut % (Auto) (45-73) % Lymph % (Auto) (20-40) % [place] % (Auto) (2-11) % Eos % (Auto) (0-4) % Baso % (Auto) (0-2) % Lymph # (Auto) (1.2-4.9) X10*3/uL [place] # (Auto) (0.1-1.2) X10*3/uL Eos # (Auto) (0.0-0.4) X10*3/uL Baso # (Auto) (0.0-0.2) X10*3/uL Abs Immat Gran (auto) (0.00-0.03) X10*3/uL Absolute Neuts (auto) (2.0-8.3) x10*3/uL Absolute Nucleated RBC (0.0-0.012) X10*3/uL Nucleated RBC % (auto) (0.0-0.2) /100WBC ESR (0-15) MM/HR PT 11.3 (10.9-12.4) SEC INR 1.0 (0.9-1.1) APTT 23.6 L (26.7-34.1) SEC D-Dimer High Sensitivty 1161 NG/ML VBG pH (7.32-7.43) VBG pCO2 mmHg VBG pO2 mmHg VBG HCO3 (22-26) mmol/L VBG O2 Saturation % VBG Base Excess mmol/L Sodium (135-145) mmol/L Potassium (3.3-5.1) mmol/L Chloride (96-108) mmol/L Carbon Dioxide (22-29) mmol/L Anion Gap (12-20) BUN (9-16) mg/dL Creatinine (0.5-1.4) mg/dL Estim Creat Clear Calc Estimated GFR Random Glucose (60-115) mg/dL Lactic Acid 1.4 (0.5-2.0) mmol/L Calcium (8.4-10.2) mg/dL Magnesium (1.6-2.6) mg/dL Total Bilirubin (0.0-1.0) mg/dL AST (5-37) U/L ALT (0-40) U/L Alkaline Phosphatase (39-117) U/L Total Creatine Kinase (38-174) U/L Troponin I High Sens (<3.5-35.0) ng/L C-Reactive Protein (< or = 0.50) mg/dL B-Natriuretic Peptide (<100) pg/mL Total Protein (6.5-8.0) g/dL Albumin (3.5-5.0) g/dL Lipase (8-78) U/L TSH (0.32-4.0) uIU/mL Gastric Occult Blood NEGATIVE (NEG) Urine Opiates Screen (Not Detect) Ur Buprenorphine Scrn (Not Detect) ng/mL Ur Oxycodone Screen (Not Detect) ng/mL Urine Methadone Screen (Not Detect) ng/mL Urine Fentanyl Screen (Not Detect) Ur Barbiturates Screen (Not Detect) Ur Phencyclidine Scrn (Not Detect) Ur Amphetamines Screen (Not Detect) U Benzodiazepines Scrn (Not Detect) Urine Cocaine Screen (Not Detect) U Marijuana (THC) Screen (Not Detect) Ethyl Alcohol mg/dL Influenza Type A (PCR) NEGATIVE (Negative) Influenza Type B (PCR) NEGATIVE (Negative) RSV RNA Qual (PCR) NEGATIVE (Negative) SARS-CoV-2 RNA (RT-PCR) NEGATIVE (Negative) 04/23/25 Range/Units 15:52 WBC (4.8-10.8) X10*3/uL RBC (4.60-5.80) X10*6/uL Hgb (14.0-18.0) g/dl Hct (42.0-52.0) % MCV (80.0-98.0) fL MCH (27.0-33.0) pg MCHC (31.0-36.0) g/dl RDW (11.0-16.0) % Plt Count (160-400) X10*3/uL MPV (9.4-12.4) fL Immature Gran % (Auto) (0.0-0.4) % Neut % (Auto) (45-73) % Lymph % (Auto) (20-40) % [place] % (Auto) (2-11) % Eos % (Auto) (0-4) % Baso % (Auto) (0-2) % Lymph # (Auto) (1.2-4.9) X10*3/uL [place] # (Auto) (0.1-1.2) X10*3/uL Eos # (Auto) (0.0-0.4) X10*3/uL Baso # (Auto) (0.0-0.2) X10*3/uL Abs Immat Gran (auto) (0.00-0.03) X10*3/uL Absolute Neuts (auto) (2.0-8.3) x10*3/uL Absolute Nucleated RBC (0.0-0.012) X10*3/uL Nucleated RBC % (auto) (0.0-0.2) /100WBC ESR (0-15) MM/HR PT (10.9-12.4) SEC INR (0.9-1.1) APTT (26.7-34.1) SEC D-Dimer High Sensitivty NG/ML VBG pH (7.32-7.43) VBG pCO2 mmHg VBG pO2 mmHg VBG HCO3 (22-26) mmol/L VBG O2 Saturation % VBG Base Excess mmol/L Sodium (135-145) mmol/L Potassium (3.3-5.1) mmol/L Chloride (96-108) mmol/L Carbon Dioxide (22-29) mmol/L Anion Gap (12-20) BUN (9-16) mg/dL Creatinine (0.5-1.4) mg/dL Estim Creat Clear Calc Estimated GFR Random Glucose (60-115) mg/dL Lactic Acid (0.5-2.0) mmol/L Calcium (8.4-10.2) mg/dL Magnesium (1.6-2.6) mg/dL Total Bilirubin (0.0-1.0) mg/dL AST (5-37) U/L ALT (0-40) U/L Alkaline Phosphatase (39-117) U/L Total Creatine Kinase (38-174) U/L Troponin I High Sens (<3.5-35.0) ng/L C-Reactive Protein (< or = 0.50) mg/dL B-Natriuretic Peptide (<100) pg/mL Total Protein (6.5-8.0) g/dL Albumin (3.5-5.0) g/dL Lipase (8-78) U/L TSH (0.32-4.0) uIU/mL Gastric Occult Blood (NEG) Urine Opiates Screen Not Detected (Not Detect) Ur Buprenorphine Scrn Not Detected (Not Detect) ng/mL Ur Oxycodone Screen Not Detected (Not Detect) ng/mL Urine Methadone Screen Not Detected (Not Detect) ng/mL Urine Fentanyl Screen Not Detected (Not Detect) Ur Barbiturates Screen Not Detected (Not Detect) Ur Phencyclidine Scrn Not Detected (Not Detect) Ur Amphetamines Screen Not Detected (Not Detect) U Benzodiazepines Scrn Not Detected (Not Detect) Urine Cocaine Screen Not Detected (Not Detect) U Marijuana (THC) Screen Not Detected (Not Detect) Ethyl Alcohol mg/dL Influenza Type A (PCR) (Negative) Influenza Type B (PCR) (Negative) RSV RNA Qual (PCR) (Negative) SARS-CoV-2 RNA (RT-PCR) (Negative) Independent Interpretation I performed an independent interpretation of an: EKG Interpretation: My independent interpretation patient's 12 EKG done on 04/23/2025 at 12:47 hours is as follows: Normal sinus rhythm rate of 71, normal PA interval, prolonged QRS duration 100 milliseconds, normal QTC interval, incomplete right bundle-branch block, no ST segment elevation, no ST segment depression, no PACs, no significant T-wave abnormalities. Compared to an EKG dated 01/27/2025 at 19:56 hours, incomplete right bundle-branch block is old, no significant change in his. Radiology Impression Discussion of test interpretation with radiology: I have reviewed the radiologist's reading. Radiologist Impression: CT angio chest PE protocol IMPRESSION: 1. Findings of nonocclusive segmental/subsegmental filling defects involving the right upper and lower lobes and left upper and lower lobes, with features that suggest chronic pulmonary embolism. No CT evidence of pulmonary hypertension. 2. Minor consolidation of the right lower lobe, most likely pneumonia. 3. No findings to suggest tuberculosis. Findings regarding presence of probably chronic pulmonary embolism communicated via secure message system to the ordering physician Dr. Mukherjee at the time of interpretation of this study, with prompt acknowledgment received. Electronically signed by: Maria Dolores Yancey MD 04/23/2025 03:36 PM Independent Historian Clinical information obtained from an independent historian. History obtained from or confirmed by: Other (Patient's PCP) Chronic Conditions Patient?s care impacted by: Other (HIV disease) Critical Care Time Critical Care Time Critical Care Time: Yes Total Critical Care Time: 80 Attestation: Critical Care: The patient was critically ill with a high probability of imminent or life threatening deterioration. I spent greater than 30 minutes of discontinuous time evaluating the patient,delivering critical care at the bedside, discussing and evaluating pertinent data with consultants. Critical care time does not include time spent performing separately billable procedures or teaching. Total time spent performing critical care was 80 minutes. Discharge Plan Discharge Clinical Impression: Hemoptysis, Aspiration pneumonia of right lower lobe, Dysphagia, Chronic pulmonary embolism, Pulmonary air embolism Patient Disposition: Admitted As Inpatient Print Language: Danish
[2025-04-23] MEDS: Albuterol Sulfate 2.5 MG, Albuterol/Iprat 2.5/0.5MG 3 ML 3 ML INHALE (12:20)
[2025-04-23 12:30] LABS: MANUAL DIFF FLAG NO
[2025-04-23 12:32] LABS: Hematocrit 43.1 % (42.0-52.0); Hemoglobin 14.8 g/dl (14.0-18.0); Imm Gran Abs Auto 0.20 X10*3/uL (0.00-0.03); Imm Gran Pct Auto 2.7 % (0.0-0.4); Lymphocytes Absolute Auto 2.1 X10*3/uL (1.2-4.9); Mean Corpuscular HGB Conc 34.3 g/dl (31.0-36.0); Mean Corpuscular Hemoglobin 34.2 pg (27.0-33.0); Mean Corpuscular Volume 99.5 fL (80.0-98.0); NRBC Abs Auto 0.000 X10*3/uL (0.0-0.012); NRBC Pct Auto 0.0 /100WBC (0.0-0.2); Platelet Count 223 X10*3/uL (160-400); Red Blood Count 4.33 X10*6/uL (4.60-5.80); White Blood Count 7.5 X10*3/uL (4.8-10.8)
[2025-04-23 12:37] LABS: VBG HCO3 31 mmol/L (22-26); VBG O2 % Saturation 46.0 %
[2025-04-23 12:38] LABS: Venous Blood Gas Refer to POC result
[2025-04-23 12:54] LABS: Alanine Aminotransferase 41 U/L (0-40); Albumin Level 4.3 g/dL (3.5-5.0); Alkaline Phosphatase 56 U/L (39-117); Anion Gap 15 (12-20); Aspartate Amino Transferase 49 U/L (5-37); Blood Urea Nitrogen 8 mg/dL (9-16); Calcium 9.7 mg/dL (8.4-10.2); Carbon Dioxide 26 mmol/L (22-29); Chloride 107 mmol/L (96-108); Creatinine Clr Calc Pharmacy 63.0; Estimated Glomerular Filt Rate > 60; Lipase 6 U/L (8-78); Magnesium 2.4 mg/dL (1.6-2.6); Potassium 4.5 mmol/L (3.3-5.1); Sodium 143 mmol/L (135-145); Total Protein 7.7 g/dL (6.5-8.0)
[2025-04-23 12:55] LABS: B Type Natriuretic Peptide 16 pg/mL (<100); Troponin-I High Sensitivity 3.4 ng/L (<3.5-35.0)
--- OUTSIDE RECORDS SUMMARY | 2025-04-23 12:59 | XMS_ITS | Clinical Summary ---
Author Organization [facility] Address [address] [place] [address] Phone Care Team Providers Care Air Conditioning Unit Assembler Name Role Phone Physician, Pcp Unknown Primary Care Provider Bina vailable Encounters Date Type Department Care Team Description 03/10/2025 Lab Requisition [facility] [address] [place] [address] MD Unspecified abnormal cytological findings in specimens from anus 03/09/2025 Lab Requisition [facility] [address] [place] [address] MD Candidal esophagitis [place] from Last 3 Months Surgical History Surgery Date Site/Laterality Comments EYE SURGERY Left PROCEDURE: HISTORICAL EYE SURGERY OTHER SURGICAL HISTORY PROCEDURE: ---- OTHER ----; COMMENT: hemorrhoids Medical History Medical History Date Comments Seizures ([facility] 06/29/2016 DX:Seizures ([facility]); COMMENT: F/u with neuro at [place] Dr Costello HIV (human immunodeficiency virus infection) ([facility] [facility] 06/29/2016 DX:HIV (human im munodeficiency virus infection) ([facility]); COMMENT: HIV dx in 1991, f/u Dr. Street Depression 06/29/2016 DX:Depression Anxiety 06/29/2016 DX:Anxiety; COMM ENT: F/u [facility] Chronic back pain 06/29/2016 DX:Chronic nena [...] Upcoming Encounters Date Type Department Care Team ([facility] Contact Info) Description 05/05/2025 9:45 AM EDT Consult Orthopedic Surgery - [place] [id number] 175 [facility] [address] [place] [address] Kb Benitez, BERNABE 175 [facility] [address] [place] [address] Health Maintenance Due Date Last Done Comments [...] Routine 03/09/2025 12:00 AM EDT Candidal esophagitis ([facility] V24, [facility] V28) CULTURE MISCELLANEOUS Routine 03/09/2025 12:00 AM EDT Candidal esophagitis ([facility] V24, [facility] V28) CHLAMYDIA TRACHOMATIS AND NEISSERIA GONORRHOEAE PCR Routine 03/09/2025 12:00 AM EDT Candidal esophagitis ([facility] V24, [facility] V28) from Last 3 Months Results * [...] Yulia albicans(A) GALEN 03/18/2025 8:09 AM EDT [facility] Comment: Edited result: Previously reported as Yeast on 03/16/2025 at 1407 EDT. Swab Oral cavity structure / Unknown 03/09/2025 03/09/2025 6:57 PM EDT us Fabiola Street MD LAB MICROBIOLOGY - GENERA L ORDERABLES Final Result [facility] [address] [place] [address], [place] [phone] * (ABNORMAL) Culture miscellaneous (03/09/2025 12:00 AM EDT) Miscellaneous Culture Yulia albicans/dubl iniensis(A) GALEN 03/12/2025 10:54 AM EDT [facility] Comment: Edited result: Previously reported as Yeast on 2025 at 1140 EDT. Miscellaneous Culture Klebsiella pneumoniae ssp pneumoniae(A) GALEN 03/12/2025 10:54 AM EDT [facility] Comment: The organism value [...] L ORDERABLES Final Result Performing Organization Address [facility] Co de Phone Number [facility] [address] [place] [address], [place] [phone] * Chlamydia trachomatis and Neisseria gonorrhoeae molecular study (03/09/2025 12:00 AM EDT) Neisseria gonorrhoeae PCR Negative Negative LAB MOLECULAR DIAGNOSTICS METHOD 03/10/2025 8:49 AM EDT [facility] Chlamydia trachomatis PCR Negative Negative LAB MOLECULAR DIAGNOSTICS METHOD 03/10/2025 8:49 AM EDT [facility] Swab Rectum structure / Unknown 03/09/2025 03/09/2025 6:[address] MD LAB MICROBIOLOGY - GENERA L ORDERABLES Final Result Performing Organization Address [place] de Phone Number [facility] [address] [place] [address], [place] [phone] * Non-gynecologic cytology (03/09/2025 12:00 AM EDT) Final Diagnosis Specimen sent to [facility] for Anal cytology with HPV CoTest. Their interpretation is as follows: Anal, Rectum (ThinPrep): Satisfactory for Evaluation. Transformation zone components absent. Negative for Intraepithelial Lesion or Malignancy. Disclaimer This test has been modified from the realty loan specialist's instructions. Its performance characteristics were determined by [facility] in a manner consistent with CLIA requirements. This test has not been cleared or approved by the U.S. Food and Drug Administration Report signed electronically by: Qi Lehman M.D. on 16 Mar 2025 at 13:55 at [facility], [address] [facility] (CLIA [id number]) HPV Anal Detect/Genotyping, PCR: High Risk HPV [...] ordered in the context of a [facility] Non-CLERICAL ASSISTANT Cytology case; this result should be interpreted within the context of the Non-CLERICAL ASSISTANT cytology report. Resulted 12 Mar 2025 at 17:00 by [facility], [address] [facility] (CLIA [id number]) Full report attached. 03/17/2025 2:31 PM EDT [facility] Disclaimer Unless otherwise specified, all tissue is 10% NB formalin fixed and paraffin embedded. Technical cytopathology services provided by [facility], at [address] [place] [address] (CLIA # [id number]/Angel Villalobos MD, Quality Assurance Lab Technician.) 03/17/2025 2:31 PM EDT [facility] Brushing/Spatula Anal structure / Unknown 03/09/2025 03/10/2025 9:22 AM EDT us Fabiola [address] MD LAB CYTOLOGY ORDERABLES F inal Result [facility]) [facility] [address] [place] [address], from Last 3 Months [address] [place] [address] MEDICAID - [place] [employer] MEDICARE Member Subscriber Plan / Payer (Ef fective 2017-Present) Name:VICKIE GROVER Relation to Subscriber:Self Name:Vickie Fall Payer ID:[id number] Group ID:[id number] Type:Not on file Address: [address] [place] [address] Care Teams Air Conditioning Unit Assembler Relationship Specialty Start Date End Date Physician, Pcp Unknown PCP - General 03/10/25
--- OUTSIDE RECORDS SUMMARY | 2025-04-23 12:59 | XMS_ITS | Clinical Summary ---
Author Organization [facility] Address [address] [address] Phone Care Team Providers Care Floor Service Worker Spring Name Role Phone Gaetano Gibbons MD Primary Care Provider [phone] Social History Tobacco Use Types Packs/Day Years [...] Medical Devices Not on file Care Teams Floor Service Worker Spring Relationship Specialty Start Date End Date Gaetano Gibbons MD [address] [place] [address] 204, [address] [place] [address] [email or web address] PCP - General Family Medicine 07/02/23 Additional Source Comments The information contained in this document represents components of the legal health record. It is not the complete legal health record.[facility]
--- OUTSIDE RECORDS SUMMARY | 2025-04-23 12:59 | XMS_ITS | Clinical Summary ---
Author Organization [facility] Address [address] [place] [address] Care Team Providers Care Flake Drier Name Role Phone Zora Arce PA-C Primary Care Provider [phone] Source Comments PLEASE NOTE, if this patient [...] EC tabletIndications:H IV (human immunodeficiency virus infection) ([facility]) Take 1 Tab by mouth [...] NUTRITION) liquidIndications:H IV (human immunodeficiency virus infection) ([facility] & [facility]) Take 1 Can by mouth 3 [...] 0.65 % nasal sprayIndications:As thma, intermittent, uncomplicated ([facility]) Place 1 Browning into the nostril(s) as needed for congestion. 60 mL 6 016 Active omeprazole (PRILOSEC) [address] capsuleIndications: Dyspepsia Take 1 Cap by mouth every morning before breakfast. Do not crush or chew. 30 Cap 3 016 Active albuterol sulfate hfa (PROAIR HFA) 90 mcg/actuation inhalerIndications: Asthma, intermittent, uncomplicated ([facility]) Inhale 2 Puffs into the lungs every 4 (four) hours as needed for shortness of breath. Int asthma 18 g 6 016 Active Active Problems Problem Noted Date Diagnosed Date Asthma, mild intermittent ([facility]) 05/06/2015 Fibromyalgia 01/27/2015 Generalized anxiety disorder 01/27/2015 Seizure disorder ([facility]) 01/27/2015 Major depressive disorder, r ecurrent, severe without psychotic features ([facility]) 01/27/2015 Overview (01/27/2015): Has therapist at [facility] HIV (human immunodeficiency virus infection) ([facility]) 01/27/2015 Chronic back pain 01/27/2015 [...] DENTAL Member Subscriber Plan / Payer [facility]Present) Name:Benjamin Fall Relation to Subscriber:Self Name:Benjamin Fall Payer ID:[id number] Group ID:Not on file Type:Medicaid Address: [address] DENTAL Member Subscriber Plan / Payer ([facility]28[facility]2015-Present) Name:Benjamin Fall Relation to Subscriber:Self Name:Benjamin Fall Payer ID:[id number] Group ID:Not on file Type:Other Address: [address] [place] [id number] Care Teams Flake Drier Relationship Specialty Start Date End Date Zora Arce PA-C [address] [place] [address] PCP - General 11/05/18
[2025-04-23] MEDS: cefEPime HCl/D5W 2 GM/50 ML PIGGYBACK IV (13:08)
[2025-04-23 13:30] LABS: D Dimer High Sensitivity 1161 NG/ML; INTERNATIONAL NORM RATIO 1.0 (0.9-1.1); Prothrombin Time 11.3 SEC (10.9-12.4)
[2025-04-23 13:31] LABS: Partial Thromboplastin Time 23.6 SEC (26.7-34.1)
[2025-04-23 13:47] LABS: GASOB Int Neg Ctl Valid YES; GASOB Int Pos Ctl Valid YES
--- NOTE | 2025-04-23 13:47 | PC.NURSE ---
Pt comes to ED today from urgent care for concerns of hypoxia after noted O2 sat of 86% on RA Per EMS, Pt recently diagnosed with pneumonia. Pt c/o cough x4 days with bloody sputum. He denies fever, chills, SOB, n/v, and night sweats. Upon arrival Pt is A&Ox3 VSS, afebrile Skin is pale and warm. Frequent junky cough present. Pt with g-tube placed. Tube appears intact and without infections at entry site. Pt reports tube is used for medications mainly but does received nutrition through it was well. He report it was last accessed and flushed this AM. Attempt at IV access without success although small portion of blood labs were able to be obtained. U/S guided access achieved at 1305 and remainder of blood labs obtained. RT at bedside to for eval/treatment/sputum spec. Order for Gastric Occult testing in place. Called Micro lab and spoke with Nigel who reports spec can be aspirated via syringe and placed in a sterile cup to be sent to lab for processing. Gastric occult spec aspirated from g-tube, approx 10ml collected. Spec placed into sterile oliveira top spec cup and labeled with Pt sticker and sent to lab. G-tube flushed with 20mls water and clamped. Pt tolerated well. Results pending.
[2025-04-23 13:48] LABS: GASOB Lot 20542 10
[2025-04-23 14:05] LABS: Resp Syncy Virus RNA Qual PCR NEGATIVE (Negative); SARS COV2 PCR INHOUSE NEGATIVE (Negative)
[2025-04-23] MEDS: iohexoL 350 MG/ML 100 ML INFUS..BTL IV (14:39)
[2025-04-23 16:22] LABS: Cannabinoid Screen Urine Not Detected (Not Detect)
--- NOTE | 2025-04-23 16:40 | P.HPHOSP_ITS ---
History of Present Illness Date of Service: 04/23/25 Chief Complaint: hemoptysis 60M PMH HIV, dysphagia with G-tube, extrapyramidal condition unspecified, nocturnal hypoxia, hypogonadism, history of lung abscess with decortication, history of pulmonary embolism not on anticoagulation presented with shortness breath and cough. Patient is a vague historian but reports 3 days of hemoptysis, shortness for breath, increased weakness. Was on urgent care and found to have oxygenation of 86% on room air. On 6 minute walk test 10 days prior to presentation patient did not desaturate. In ED CT angio showed chronic pulmonary embolism and right-sided pneumonia. Review of Systems 2 Review of Systems: Yes all other systems are reviewed and are negative [facility] Medical History (Updated 04/23/25 @ 16:44 by Shawn Adorno MD) Fibromyalgia Hepatitis C virus infection without hepatic coma Myalgia History of pulmonary embolism Lower urinary tract symptoms Hypogonadism in male Low serum cortisol level Adrenal hyperplasia Osteoporosis Height loss HIV (human immunodeficiency virus infection) Asthma Dysphagia Adult failure to thrive Adult failure to thrive Multiple rib fractures History of empyema of pleura (01/05/23) Hypertension Closed fracture of leg Hepatitis C Kidney stones Pleuritic chest pain Pneumonia Substance abuse Hemorrhoids Depression HIV (human immunodeficiency virus infection) Asthma Family History Maternal Grandmother Lung cancer Maternal Aunt Lung cancer Mother Lung cancer Surgical History H/O hemorrhoidectomy Social History Household Members: Caregiver 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 Housing: Apartment Do you presently have visiting nurse or other home services: Yes Alcohol intake: never Patient Tobacco Use Status: Former Tobacco user Tobacco use type: Cigarette Smoked in Last 30 Days: No e-Cigarette/Vaping Use: Never Used Second Hand Smoke Exposure: No Substance Use Type: Crack/Cocaine Advance Directives: Yes Advance Directives on File: Yes Advance Directives Date on File: 04/25/21 Do you have a plan to hurt others: No Plan service: No Current occupational status: disabled 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 Gender identity: Male Meds Allergies Allergy/AdvReac Type Severity Reaction Status Date / Time Seasonal Allergies Allergy Intermediate Eye Verified 04/23/25 11:50 Drainage codeine (From Allergy Mild Rash Verified 04/23/25 11:50 Tylenol-Codeine #3) levofloxacin (From Levaquin) Allergy Mild Rash Verified 04/23/25 11:50 metoclopramide (From Reglan) Allergy Mild Rash Verified 04/23/25 11:50 acetaminophen Allergy Unknown Rash Verified 04/23/25 11:50 (Tylenol-Codeine #3) Penicillins (PENICILLINS) Allergy Unknown Rash Verified 04/23/25 11:50 ibuprofen (From Motrin) AdvReac Unknown Reflux Verified 04/23/25 11:50 Active Medications: Current Medications Acetaminophen (Acetaminophen 325 Mg Tablet) 650 mg PO Q6H PRN PRN Reason: Pain, Mild 1-3,fever,headache Albuterol/Ipratropium (Albuterol/Iprat 2.5/0.5mg 3 Ml Ampul.Neb) 3 ml INHALE RQ4H WHILE AWAKE PRN PRN Reason: sob Calcium Carbonate (Calcium Carbonate 750 Mg Tab.Chew) 750 mg PO Q4H PRN PRN Reason: Heartburn Ceftriaxone Sodium (Ceftriaxone Sodium 1 Gm Vial) 1 gm IVPUSH Q24H MICHAEL Doxycycline Hyclate 100 mg/ (Sodium Chloride) 250 mls @ 166.67 mls/hr IV Q12H MICHAEL Magnesium Hydroxide (Milk Of Magnesia 30 Ml Oral.Susp) 30 ml PO DAILY PRN PRN Reason: Constipation Melatonin (Melatonin 3 Mg Tablet) 6 mg PO BEDTIME PRN PRN Reason: Insomnia Sodium Chloride (0.9 % Sodium Chloride Flush 3 Ml Syringe) 3 ml IVFLUSH QSHIFT [facility] Home Medications ?Medication ?Instructions ?Recorded ?Confirmed ?Last Taken ?Type calcium 600 mg (as 1 tab feeding tube BID@1200, 1800 12/16/23 03/24/25 01/27/25 History carbonate)-vitamin D3 20 mcg (800 unit) tablet ferrous gluconate 324 mg (38 mg 324 mg feeding tube BI D 12/16/23 03/24/25 01/27/25 History iron) tablet risperidone 3 mg tablet 3 mg feeding tube BEDTIME 03/24/25 05/05/24 History omeprazole 10 mg capsule,delayed 10 mg feeding tube DA GLENN@0630 PRN 01/10/24 03/24/25 03/06/24 History release Acid Reflux albuterol sulfate 90 mcg/actuation 2 puff inhalation Q 6H PRN wheezing 03/07/24 03/24/25 Unknown History aerosol inhaler (Ventolin HFA) somatropin 6 mg subcutaneous 6 mg subcut DAILY 4 03/24/25 01/27/25 History solution (Serostim) acetaminophen 325 mg tablet 650 mg PO Q6H PRN pain 03/24/25 Unknown History ascorbic acid (vitamin C) 250 mg 250 mg PO DAILY 01/2703/24/25 01/27/25 History tablet brimonidine 0.2 %-timolol 0.5 % 1 drp ophthalmic (eye) BID 01/27/25 03/24/25 01/27/25 History eye drops (Combigan) clotrimazole 10 mg klaudia 10 mg PO TID candidiasis 03/24/25 01/27/25 History diphenhydramine HCl 25 mg capsule 25 - 50 mg PO DAILY PRN Sleep 01/27/25 03/24/25 Unknown History (Banophen) gabapentin 600 mg tablet 600 mg PO TID 01/27/2503/2401/27/25 History megestrol 625 mg/5 mL (125 mg/mL) 5 ml feeding tube DA GLENN daily 01/27/25 03/24/25 01/27/25 History oral suspension netarsudil 0.02 %-latanoprost 1 drp ophthalmic (eye) B EDTIME 01/27/25 03/24/25 Unknown History 0.005 % eye drops (Rocklatan) pilocarpine HCl 5 mg tablet 5 mg PO TID 01/27/2503/2401/27/25 History romosozumab-aqqg 210 mg/2.34 210 mg subcut QMONTH 01/0903/24/25 Unknown History mL(105 mg/1.17 mL x2)subcutaneous syringe ([facility] linezolid 600 mg tablet 600 mg PO BID 03/20/2503/24 Unknown History Physical Exam 2 Vital Signs and Narrative: Vital Signs: Last Vital Signs Temp 98.6 F 04/23/25 11:54 Pulse 82 04/23/25 16:00 Resp 22 H 08/14/25 16:00 BP 134/84 04/23/25 16:00 Pulse Ox 91 L 04/23/25 16:00 O2 Del Method Nasal Cannula 04/23/25 16:00 Oxygen Flow Rate 10 04/23/25 11:48 BMI result Body Mass Index 22.9 General: AO X 3, no acute distress, ill appearing Resp: diminsihed bilateral, no accessory muscles used CVS: S1,S2,RRR GI: soft, non tender, non distended Neuro: motor grossly weak, alert Psych: appropriate affect, appropriate insight Results Labs 04/23/25 12:17 04/23/25 12:18 Labs: Laboratory Results - last 24 hr 04/23/25 04/23/25 04/23/25 12:17 12:18 12:31 MCV 99.5 H MCH 34.2 H MCHC 34.3 RDW 14.4 Plt Count 223 MPV 11.1 Immature Gran % (Auto) 2.7 H Neut % (Auto) 56.7 Lymph % (Auto) 27.7 [place] % (Auto) 11.6 H Eos % (Auto) 0.9 Baso % (Auto) 0.4 Lymph # (Auto) 2.1 [place] # (Auto) 0.9 Eos # (Auto) 0.1 Baso # (Auto) 0.0 Abs Immat Gran (auto) 0.20 H Absolute Neuts (auto) 4.2 Absolute Nucleated RBC 0.000 Nucleated RBC % (auto) 0.0 ESR 16 H PT INR APTT D-Dimer High Sensitivty VBG pH 7.37 VBG pCO2 53 VBG pO2 33 VBG HCO3 31 H VBG O2 Saturation 46.0 VBG Base Excess 4.8 Anion Gap 15 Estim Creat Clear Calc 63.0 Estimated GFR > 60 Random Glucose 93 Lactic Acid Calcium 9.7 D Magnesium 2.4 Total Bilirubin 0.3 AST 49 H ALT 41 H Alkaline Phosphatase 56 Total Creatine Kinase 147 C-Reactive Protein 0.44 B-Natriuretic Peptide 16 Total Protein 7.7 Albumin 4.3 Lipase 6 L TSH 1.75 Gastric Occult Blood Urine Opiates Screen Ur Buprenorphine Scrn Ur Oxycodone Screen Urine Methadone Screen Urine Fentanyl Screen Ur Barbiturates Screen Ur Phencyclidine Scrn Ur Amphetamines Screen U Benzodiazepines Scrn Urine Cocaine Screen U Marijuana (THC) Screen Ethyl Alcohol < 10 Influenza Type A (PCR) Influenza Type B (PCR) RSV RNA Qual (PCR) SARS-CoV-2 RNA (RT-PCR) 04/23/25 04/23/25 04/23/25 12:57 13:06 13:38 MCV MCH MCHC RDW Plt Count MPV Immature Gran % (Auto) Neut % (Auto) Lymph % (Auto) [place] % (Auto) Eos % (Auto) Baso % (Auto) Lymph # (Auto) [place] # (Auto) Eos # (Auto) Baso # (Auto) Abs Immat Gran (auto) Absolute Neuts (auto) Absolute Nucleated RBC Nucleated RBC % (auto) ESR PT 11.3 INR 1.0 APTT 23.6 L D-Dimer High Sensitivty 1161 VBG pH VBG pCO2 VBG pO2 VBG HCO3 VBG O2 Saturation VBG Base Excess Anion Gap Estim Creat Clear Calc Estimated GFR Random Glucose Lactic Acid 1.4 Calcium Magnesium Total Bilirubin AST ALT Alkaline Phosphatase Total Creatine Kinase C-Reactive Protein B-Natriuretic Peptide Total Protein Albumin Lipase TSH Gastric Occult Blood NEGATIVE Urine Opiates Screen Ur Buprenorphine Scrn Ur Oxycodone Screen Urine Methadone Screen Urine Fentanyl Screen Ur Barbiturates Screen Ur Phencyclidine Scrn Ur Amphetamines Screen U Benzodiazepines Scrn Urine Cocaine Screen U Marijuana (THC) Screen Ethyl Alcohol Influenza Type A (PCR) NEGATIVE Influenza Type B (PCR) NEGATIVE RSV RNA Qual (PCR) NEGATIVE SARS-CoV-2 RNA (RT-PCR) NEGATIVE 04/23/25 15:52 MCV MCH MCHC RDW Plt Count MPV Immature Gran % (Auto) Neut % (Auto) Lymph % (Auto) [place] % (Auto) Eos % (Auto) Baso % (Auto) Lymph # (Auto) [place] # (Auto) Eos # (Auto) Baso # (Auto) Abs Immat Gran (auto) Absolute Neuts (auto) Absolute Nucleated RBC Nucleated RBC % (auto) ESR PT INR APTT D-Dimer High Sensitivty VBG pH VBG pCO2 VBG pO2 VBG HCO3 VBG O2 Saturation VBG Base Excess Anion Gap Estim Creat Clear Calc Estimated GFR Random Glucose Lactic Acid Calcium Magnesium Total Bilirubin AST ALT Alkaline Phosphatase Total Creatine Kinase C-Reactive Protein B-Natriuretic Peptide Total Protein Albumin Lipase TSH Gastric Occult Blood Urine Opiates Screen Not Detected Ur Buprenorphine Scrn Not Detected Ur Oxycodone Screen Not Detected Urine Methadone Screen Not Detected Urine Fentanyl Screen Not Detected Ur Barbiturates Screen Not Detected Ur Phencyclidine Scrn Not Detected Ur Amphetamines Screen Not Detected U Benzodiazepines Scrn Not Detected Urine Cocaine Screen Not Detected U Marijuana (THC) Screen Not Detected Ethyl Alcohol Influenza Type A (PCR) Influenza Type B (PCR) RSV RNA Qual (PCR) SARS-CoV-2 RNA (RT-PCR) Imaging Radiologist's Impressions: Impressions Chest CTA 04/23/25 13:33 IMPRESSION: 1. Findings of nonocclusive segmental/subsegmental filling defects involving the right upper and lower lobes and left upper and lower lobes, with features that suggest chronic pulmonary embolism. No CT evidence of pulmonary hypertension. 2. Minor consolidation of the right lower lobe, most likely pneumonia. 3. No findings to suggest tuberculosis. Findings regarding presence of probably chronic pulmonary embolism communicated via secure message system to the ordering physician Dr. Mukherjee at the time of interpretation of this study, with prompt acknowledgment received. Electronically signed by: Maria Dolores Yancey MD 04/23/2025 03:36 PM EDT Assessment and Plan (1) Dysphagia: Qualifiers: Dysphagia type: unspecified Qualified Code(s): R13.10 - Dysphagia, unspecified Status: Acute Plan 60M PMH HIV, dysphagia with G-tube, extrapyramidal condition unspecified, nocturnal hypoxia, hypogonadism, history of lung abscess with decortication, history of pulmonary embolism not on anticoagulation presented with shortness breath and cough Acute hypoxic respiratory failure due to aspiration pneumonia and chronic pulmonary embolism Ceftriaxone doxycycline will start Eliquis Speech eval as patient occasionally takes food orally ID eval given hemoptysis and history of HIV HIV Follow-up viral level and CD4 ID eval Continue anti-retroviral Full code Quality Stroke Does the patient have a stroke diagnosis?: No VTE Prior VTE?: Yes VTE Risk Level:: Medical - moderate - high VTE Device Contraindication: Treatment Not Indicated VTE Drug Contraindication: N/A - Med Ordered
--- NOTE | 2025-04-23 18:33 | PHA.MEDREC ---
Addendum entered by Joe Grimes PharmD 04/24/25 13:39: reviewed Addendum entered by Tila Triana 04/24/25 12:42: Called and spoke to Patients visiting nurse Kwasi [phone] to confirm med list. Kwasi states patient is no longer taking Bamophen 50 mg, Dorzolamide 2% drops, even though last filled 04/22/25 for 50 days, Econazole nitrate cream, Evenity 210 injection qmonth, even through there is consistent fills for, last fill date 04/16/25, Fluconazole 100 mg daily for 21 days, even though last fill date 04/16/25 for 21 days, Gabapentin 600 mg, last fill date 04/04/25 for 30 days, omeprazole 10 mg, Pilocarpine 5 mg, even though last fill date was 03/09/25 for 90 days, Tamsulosin 0.4 mg, last fill date 12/17/24 for 90 days and Tadalafil 5 mg. Addendum entered by Jessica Ellison [facility] 04/23/25 20:04: reviewed what was entered from claims, will have morning team follow up. Original Note: Pharmacy Consult ? Medication Reconciliation Pharmacy has completed the medication reconciliation. Patient is a poor historian. Patient states he has a home nurse (Kwasi [phone]) that gives him his medications daily. Called and left a message for nurse Kwasi Osborn [phone]. Utilized list from [facility] to confirm med rec. Will up date med list with any changes when/If patient nurse calls back.
--- NOTE | 2025-04-23 20:14 | PC.NURSE ---
Pt aox3, resting at the bedside. O2 sat 89% on 4L NC. O2 increased to 6L with no improvement. NC changed to Oxymask and O2 increased to 8L with improvement to 90-92%. Pt tolerating it well. VSS. NSR on monitor. HR 80's. Monitoring is ongoing. Hospitalist made aware via tiger text. No new orders at this time.
--- NOTE | 2025-04-23 23:23 | PC.NURSE ---
O2 dropped to 88% on 8L via oxymask. Pt repositioned and O2 increased to 10L via oxymask with O2 improvement to 91%.
[2025-04-24] VITALS (9 sets, daily range): BP systolic 118–151; BP diastolic 69–83; PULSE 68–77; RESP 16–20; TEMP 36–37.1; O2SAT 89–99; BMI 30.4; BMI 27.1
--- NOTE | 2025-04-24 | ECG_ITS ---
Test Reason : chest pain Blood Pressure : */* mmHG Vent. Rate : 75 BPM Atrial Rate : 75 BPM P-R Int : 140 ms QRS Dur : 100 ms QT Int : 408 ms P-R-T Axes : 74 73 57 degrees QTcB Int : 455 ms Normal sinus rhythm Incomplete right bundle branch block Borderline ECG When compared with ECG of 23-Apr-2025 12:47, No significant change was found Referred By: Shawn Adorno Electronically Signed By: Daniel Keller
--- NOTE | 2025-04-24 05:04 | PC.NURSE ---
Patient arrived to unit 0210, certified court/medical interpreter services, Farhad, utilized for admission assessment, patient Liberian speaking and is alert and oriented x3. Vitals stable, on oxymask at [address] Cornell notified, order for continuos o2 monitoring. Diet order; tube feeding diet; Jevity. At this time Jevity feed not available on unit and kangaroo pump for tube feed not available on unit. Nursing feed inspection supervisor notified.
[2025-04-24 06:39] LABS: Hematocrit 41.0 % (42.0-52.0); Hemoglobin 13.8 g/dl (14.0-18.0); Mean Corpuscular HGB Conc 33.7 g/dl (31.0-36.0); Mean Corpuscular Hemoglobin 33.3 pg (27.0-33.0); Mean Corpuscular Volume 98.8 fL (80.0-98.0); NRBC Abs Auto 0.000 X10*3/uL (0.0-0.012); NRBC Pct Auto 0.0 /100WBC (0.0-0.2); Platelet Count 203 X10*3/uL (160-400); Red Blood Count 4.15 X10*6/uL (4.60-5.80); White Blood Count 9.8 X10*3/uL (4.8-10.8)
[2025-04-24 06:56] LABS: Anion Gap 16 (12-20); Blood Urea Nitrogen 16 mg/dL (9-16); Carbon Dioxide 21 mmol/L (22-29); Chloride 107 mmol/L (96-108); Creatinine Clr Calc Pharmacy 83.5; Estimated Glomerular Filt Rate > 60; Potassium 4.3 mmol/L (3.3-5.1); Sodium 140 mmol/L (135-145)
[2025-04-24 07:15] LABS: Calcium 8.5 mg/dL (8.4-10.2)
[2025-04-24] MEDS: Bictegrav/Emtricit/Tenofov Ala TABLET 1 TAB PO (08:40)
[2025-04-24] MEDS: 0.9 % Sodium Chloride Flush 3 ML SYRINGE IVFLUSH ×3 (08:40→20:45)
--- NOTE | 2025-04-24 09:43 | HO.PM.IMPN ---
Subjective Subjective Date of Service: 04/24/25 Interval History: cehst pain Physical Exam Exam: Exam: General: AO X 3, n o acute distress, ill appearing Resp : diminsihed bila teral, no accessor y muscles used CVS : S1,S2,RRR GI: so ft, non tender, no n distended Neuro: motor grossly we ak, alert, right p tsosis Psych: appr opriate affect, ap propriate insight Vital Signs: Vital Signs: Last Vital Signs Temp 97.7 F 04/24/25 07:24 Pulse 74 04/24/25 08:48 Resp 20 04/24/25 08:48 BP 142/78 H 04/24/25 08:48 Pulse Ox 96 04/24/25 08:48 O2 Del Method Oxymask 04/24/25 08:48 O2 Flow Rate 6 04/24/25 08:48 Oxygen Flow Rate 10 04/23/25 11:48 BMI result Body Mass Index 27.1 Objective Data Active Medications Acetaminophen (Acetaminophen 325 Mg Tablet) 650 mg PO Q6H PRN PRN Reason: Pain, Mild 1-3,fever,headache Albuterol/Ipratropium (Albuterol/Iprat 2.5/0.5mg 3 Ml Ampul.Neb) 3 ml INHALE RQ4H WHILE AWAKE PRN PRN Reason: sob Apixaban (Apixaban 5 Mg Tablet) 5 mg G-TUBE BID [facility]; Protocol Last Admin: 04/24/25 07:53 Dose: 5 mg Documented By: MICHELLE Ascorbic Acid (Ascorbic Acid 250 Mg Tablet) 250 mg PO DAILY [facility] Last Admin: 04/24/25 07:53 Dose: 250 mg Documented By: MICHELLE Bictegravir/Emtricitabine/Tenofovir (Bictegrav/Emtricit/Tenofov Ala Tablet) 1 tab PO DAILY [facility] Last Admin: 04/24/25 08:40 Dose: 1 tab Documented By: MICHELLE Budesonide (Budesonide 0.25 Mg/2 Ml Ampul.Neb) 0.25 mg INHALE RBID [facility] Last Admin: 04/24/25 07:58 Dose: 0.25 mg Documented By: NEFTALY Calcium Carbonate (Calcium Carbonate 750 Mg Tab.Chew) 750 mg PO Q4H PRN PRN Reason: Heartburn Ceftriaxone Sodium (Ceftriaxone Sodium 1 Gm Vial) 1 gm IVPUSH Q24H [facility] Last Admin: 04/24/25 07:52 Dose: 1 gm Documented By: MICHELLE Clonazepam (Clonazepam 1 Mg Tablet) 1 mg PO DAILY [facility] Last Admin: 04/24/25 07:52 Dose: 1 mg Documented By: MICHELLE Dorzolamide HCl (Dorzolamide Hcl 2 % Ophth Carol 10 Ml Drpbtl) 1 drop EYE-BOTH BID [facility] Gabapentin (Gabapentin 600 Mg Tablet) 600 mg PO TID [facility] Last Admin: 04/24/25 07:53 Dose: 600 mg Documented By: MICHELLE Doxycycline Hyclate 100 mg/ (Sodium Chloride) 250 mls @ 166.67 mls/hr IV Q12H [facility] Last Infusion: 04/24/25 09:39 Dose: Infused Documented By: MICHELLE Loratadine (Loratadine 10 Mg Tablet) 10 mg PO DAILY [facility] Last Admin: 04/24/25 07:53 Dose: 10 mg Documented By: MICHELLE Magnesium Hydroxide (Milk Of Magnesia 30 Ml Oral.Susp) 30 ml PO DAILY PRN PRN Reason: Constipation Megestrol Acetate (Megestrol Acetate 400 Mg/10 Ml Oral.Susp) 625 mg G-TUBE DAILY [facility] Last Admin: 04/24/25 08:40 Dose: 625 mg Documented By: MICHELLE Melatonin (Melatonin 3 Mg Tablet) 6 mg PO BEDTIME PRN PRN Reason: Insomnia Last Admin: 04/23/25 20:25 Dose: 6 mg Documented By: EVERETT Mirtazapine (Mirtazapine 15 Mg Tablet) 45 mg G-TUBE BEDTIME [facility] Montelukast Sodium (Montelukast Sodium 10 Mg Tablet) 10 mg G-TUBE DAILY [facility] Last Admin: 04/24/25 07:52 Dose: 10 mg Documented By: MICHELLE Non-Formulary Medication (Pilocarpine Hcl) 5 mg PO TID [facility] Non-Formulary Medication (Somatropin [Serostim]) 6 mg SUBCUT DAILY [facility] Risperidone (Risperidone 3 Mg Tablet) 3 mg G-TUBE BEDTIME [facility] Last Admin: 04/23/25 22:33 Dose: 3 mg Documented By: EVERETT Sodium Chloride (0.9 % Sodium Chloride Flush 3 Ml Syringe) 3 ml IVFLUSH QSHIFT [facility] Last Admin: 04/24/25 08:40 Dose: 3 ml Documented By: MICHELLE Tamsulosin HCl (Tamsulosin Hcl 0.4 Mg Capsule) 0.4 mg PO BEDTIME [facility] Last Admin: 04/23/25 22:33 Dose: 0.4 mg Documented By: EVERETT Tramadol HCl (Tramadol Hcl 50 Mg Tablet) 50 mg G-TUBE BID PRN PRN Reason: Pain (Scale Score 7-10) Last Admin: 04/24/25 08:40 Dose: 50 mg Documented By: MICHELLE Labs 04/24/25 05:28 04/24/25 05:28 Labs: Laboratory Results - last 24 hr 04/23/25 04/23/25 04/23/25 12:17 12:18 12:31 MCV 99.5 H MCH 34.2 H MCHC 34.3 RDW 14.4 Plt Count 223 MPV 11.1 Immature Gran % (Auto) 2.7 H Neut % (Auto) 56.7 Lymph % (Auto) 27.7 [place] % (Auto) 11.6 H Eos % (Auto) 0.9 Baso % (Auto) 0.4 Lymph # (Auto) 2.1 [place] # (Auto) 0.9 Eos # (Auto) 0.1 Baso # (Auto) 0.0 Abs Immat Gran (auto) 0.20 H Absolute Neuts (auto) 4.2 Absolute Nucleated RBC 0.000 Nucleated RBC % (auto) 0.0 ESR 16 H PT INR APTT D-Dimer High Sensitivty VBG pH 7.37 VBG pCO2 53 VBG pO2 33 VBG HCO3 31 H VBG O2 Saturation 46.0 VBG Base Excess 4.8 Anion Gap 15 Estim Creat Clear Calc 63.0 Estimated GFR > 60 Random Glucose 93 Lactic Acid Calcium 9.7 D Magnesium 2.4 Total Bilirubin 0.3 AST 49 H ALT 41 H Alkaline Phosphatase 56 Total Creatine Kinase 147 C-Reactive Protein 0.44 B-Natriuretic Peptide 16 Total Protein 7.7 Albumin 4.3 Lipase 6 L TSH 1.75 Gastric Occult Blood Urine Opiates Screen Ur Buprenorphine Scrn Ur Oxycodone Screen Urine Methadone Screen Urine Fentanyl Screen Ur Barbiturates Screen Ur Phencyclidine Scrn Ur Amphetamines Screen U Benzodiazepines Scrn Urine Cocaine Screen U Marijuana (THC) Screen Ethyl Alcohol < 10 Influenza Type A (PCR) Influenza Type B (PCR) RSV RNA Qual (PCR) SARS-CoV-2 RNA (RT-PCR) 04/23/25 04/23/25 04/23/25 12:57 13:06 13:38 MCV MCH MCHC RDW Plt Count MPV Immature Gran % (Auto) Neut % (Auto) Lymph % (Auto) [place] % (Auto) Eos % (Auto) Baso % (Auto) Lymph # (Auto) [place] # (Auto) Eos # (Auto) Baso # (Auto) Abs Immat Gran (auto) Absolute Neuts (auto) Absolute Nucleated RBC Nucleated RBC % (auto) ESR PT 11.3 INR 1.0 APTT 23.6 L D-Dimer High Sensitivty 1161 VBG pH VBG pCO2 VBG pO2 VBG HCO3 VBG O2 Saturation VBG Base Excess Anion Gap Estim Creat Clear Calc Estimated GFR Random Glucose Lactic Acid 1.4 Calcium Magnesium Total Bilirubin AST ALT Alkaline Phosphatase Total Creatine Kinase C-Reactive Protein B-Natriuretic Peptide Total Protein Albumin Lipase TSH Gastric Occult Blood NEGATIVE Urine Opiates Screen Ur Buprenorphine Scrn Ur Oxycodone Screen Urine Methadone Screen Urine Fentanyl Screen Ur Barbiturates Screen Ur Phencyclidine Scrn Ur Amphetamines Screen U Benzodiazepines Scrn Urine Cocaine Screen U Marijuana (THC) Screen Ethyl Alcohol Influenza Type A (PCR) NEGATIVE Influenza Type B (PCR) NEGATIVE RSV RNA Qual (PCR) NEGATIVE SARS-CoV-2 RNA (RT-PCR) NEGATIVE 04/23/25 04/24/25 15:52 05:28 MCV 98.8 H MCH 33.3 H MCHC 33.7 RDW 14.1 Plt Count 203 MPV 11.0 Immature Gran % (Auto) Neut % (Auto) Lymph % (Auto) [place] % (Auto) Eos % (Auto) Baso % (Auto) Lymph # (Auto) [place] # (Auto) Eos # (Auto) Baso # (Auto) Abs Immat Gran (auto) Absolute Neuts (auto) Absolute Nucleated RBC 0.000 Nucleated RBC % (auto) 0.0 ESR PT INR APTT D-Dimer High Sensitivty VBG pH VBG pCO2 VBG pO2 VBG HCO3 VBG O2 Saturation VBG Base Excess Anion Gap 16 Estim Creat Clear Calc 83.5 Estimated GFR > 60 Random Glucose 94 Lactic Acid Calcium 8.5 D Magnesium Total Bilirubin AST ALT Alkaline Phosphatase Total Creatine Kinase C-Reactive Protein B-Natriuretic Peptide Total Protein Albumin Lipase TSH Gastric Occult Blood Urine Opiates Screen Not Detected Ur Buprenorphine Scrn Not Detected Ur Oxycodone Screen Not Detected Urine Methadone Screen Not Detected Urine Fentanyl Screen Not Detected Ur Barbiturates Screen Not Detected Ur Phencyclidine Scrn Not Detected Ur Amphetamines Screen Not Detected U Benzodiazepines Scrn Not Detected Urine Cocaine Screen Not Detected U Marijuana (THC) Screen Not Detected Ethyl Alcohol Influenza Type A (PCR) Influenza Type B (PCR) RSV RNA Qual (PCR) SARS-CoV-2 RNA (RT-PCR) Assessment and Plan (1) Chronic pulmonary embolism: Status: Acute Plan 60M PMH HIV, dysphagia with G-tube, extrapyramidal condition unspecified, nocturnal hypoxia, hypogonadism, history of lung abscess with decortication, history of pulmonary embolism not on anticoagulation presented with shortness breath and cough Acute hypoxic respiratory failure due to aspiration pneumonia and chronic pulmonary embolism Ceftriaxone doxycycline started Eliquis Speech eval as patient occasionally takes food orally ID eval given hemoptysis and history of HIV HIV Follow-up viral level and CD4 ID eval Continue anti-retroviral Full code reason for continued hospitalization:cultures, hypoxia Quality Stroke Does the patient have a stroke diagnosis?: No VTE Prior VTE?: Yes VTE Risk Level:: Medical - moderate - high VTE Device Contraindication: Treatment Not Indicated VTE Drug Contraindication: N/A - Med Ordered
--- NOTE | 2025-04-24 12:34 | MHC.CLN ---
Addendum entered by Myriam Awan RD 04/24/25 13:16: IF JEVITY 1.0 IS NOT AVAILABLE, MAY USE JEVITY 1.2. RECOMMEND JEVITY 1.2 AT 60 ML PER HOUR, FREE WATER FLUSHES 120 ML Q 4 HOURS. PROVIDES 1728 KCALS (26.6 KCALS/KG CMW), 80 G PROTEIN (1.2 G/KG CMW), 1882 ML TOTAL FREE WATER FROM FORMULA AND FLUSHES (29 ML/KG CMW). WHEN CHANGING TO JEVITY 1.2, TITRATING FROM START RATE OF 20 ML PER HOUR IS NOT NEEDED IF PATIENT TOLERATING JEVITY 1.0. Original Note: NUTRITION CONSULT FOR TUBE FEEDING. NPO DUE TO DYSPHAGIA AND REQUIRES TUBE FEEDING FOR NUTRITION/HYDRATION VIA PEG. RECOMMEND JEVITY 1.0 AT MAX GOAL RATE 65 ML/HOUR CONTINUOUS, FREE WATER FLUSH 120 ML Q 4 HOURS. PROVIDES 1654 KCALS (25.4 KCALS/KG CMW), 69 G PROTEIN (1.1 G/KG CMW), 2023 ML TOTAL FREE WATER FROM FORMULA AND FLUSHES (31.1 ML/KG CMW). START TUBE FEEDING AT 20 ML PER HOUR, INCREASE BY 10 ML EVERY 4 HOURS TO MAX GOAL RATE 65 ML PER HOUR. MONITOR TF TOLERANCE. SEE CLINICAL NUTRITION ASSESSMENT 04/24/25.
[2025-04-24 13:13] LABS: MTB M. tuberculosis Complex NOT DETECTED (NOT DETECTED)
--- NOTE | 2025-04-24 13:30 | MHC.CM.PN ---
IMM DELIVERED WHITE COPY LEFT AT BEDSIDE PER REQUEST OF HCP. 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 PT IS ACTIVE WITH [facility] FOR NURSING/OVERSIGHT OF G/T. PT HAS PRN 02 VIA [employer]. USES A ROLLATOR AND HAS A MODIFIED BR WITH GRAB BARS AND SHOWER CHAIR. PT ALSO HAS A RAIL ON BED. +HCP ON FILE AND VERIFIED. PCP DR. RICHARD NEWMAN AT [facility]. DP: HOME WITH RESUMPTION OF SERVICES IS THE GOAL. PT'S HCP WILL TRANSPORT. CM WILL CONTINUE TO FOLLOW FOR ANY CHANGE TO DC PLAN/NEEDS.
--- NOTE | 2025-04-24 13:31 | P.CNID_ITS ---
History of Present Illness Data of Consult Service Date: 04/24/25 Requesting physician: Shawn Adorno Primary Care Provider: Unknown Physician HPI Reason for consult: shortness of breath He presents with shortness of breath for last four days and hemoptysis. He has HIV and sees Dr Street and reports stable on Biktarvy with undetectable viral load. He has had PEs in past and not on anticoagulation at times. He has had no positive tuberculosis tests and no exposure. Review of Systems 2 Review of Systems: Yes all other systems are reviewed and are negative [facility] Past Medical History Medical History Fibromyalgia Hepatitis C virus infection without hepatic coma Myalgia History of pulmonary embolism Lower urinary tract symptoms Hypogonadism in male Low serum cortisol level Adrenal hyperplasia Osteoporosis Height loss HIV (human immunodeficiency virus infection) Asthma Dysphagia Adult failure to thrive Adult failure to thrive Multiple rib fractures History of empyema of pleura (01/05/23) Hypertension Closed fracture of leg Hepatitis C Kidney stones Pleuritic chest pain Pneumonia Substance abuse Hemorrhoids Depression HIV (human immunodeficiency virus infection) Asthma Family History Family History Maternal Grandmother Lung cancer Maternal Aunt Lung cancer Mother Lung cancer Family history: reviewed and not pertinent Surgical History Surgical History H/O hemorrhoidectomy Social History Social History Household Members: None Household Members Other:: lives alone Housing: Apartment Do you presently have visiting nurse or other home services: Yes (reports daily visiting nurses) Alcohol intake: never Patient Tobacco Use Status: Former Tobacco user Tobacco use type: Cigarette e-Cigarette/Vaping Use: Never Used Second Hand Smoke Exposure: No Substance Use Type: Crack/Cocaine Advance Directives Date on File: 04/25/21 service: No Current occupational status: disabled 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 Gender identity: Male Meds Allergies Allergy/AdvReac Type Severity Reaction Status Date / Time Seasonal Allergies Allergy Intermediate Eye Verified 04/23/25 11:50 Drainage codeine (From Allergy Mild Rash Verified 04/23/25 11:50 Tylenol-Codeine #3) levofloxacin (From Levaquin) Allergy Mild Rash Verified 04/23/25 11:50 metoclopramide (From Reglan) Allergy Mild Rash Verified 04/23/25 11:50 acetaminophen Allergy Unknown Rash Verified 04/23/25 11:50 (Tylenol-Codeine #3) Penicillins (PENICILLINS) Allergy Unknown Rash Verified 04/23/25 11:50 ibuprofen (From Motrin) AdvReac Unknown Reflux Verified 04/23/25 11:50 Active Medications: Current Medications Acetaminophen (Acetaminophen 325 Mg Tablet) 650 mg PO Q6H PRN PRN Reason: Pain, Mild 1-3,fever,headache Albuterol/Ipratropium (Albuterol/Iprat 2.5/0.5mg 3 Ml Ampul.Neb) 3 ml INHALE RQ4H WHILE AWAKE PRN PRN Reason: sob Apixaban (Apixaban 5 Mg Tablet) 5 mg G-TUBE BID [facility]; Protocol Last Admin: 04/24/25 07:53 Dose: 5 mg Ascorbic Acid (Ascorbic Acid 250 Mg Tablet) 250 mg PO DAILY [facility] Last Admin: 04/24/25 07:53 Dose: 250 mg Bictegravir/Emtricitabine/Tenofovir (Bictegrav/Emtricit/Tenofov Ala Tablet) 1 tab PO DAILY [facility] Last Admin: 04/24/25 08:40 Dose: 1 tab Budesonide (Budesonide 0.25 Mg/2 Ml Ampul.Neb) 0.25 mg INHALE RBID [facility] Last Admin: 04/24/25 07:58 Dose: 0.25 mg Calcium Carbonate (Calcium Carbonate 750 Mg Tab.Chew) 750 mg PO Q4H PRN PRN Reason: Heartburn Clonazepam (Clonazepam 1 Mg Tablet) 1 mg PO DAILY [facility] Last Admin: 04/24/25 07:52 Dose: 1 mg Dorzolamide HCl (Dorzolamide Hcl 2 % Ophth Carol 10 Ml Drpbtl) 1 drop EYE-BOTH BID [facility] Last Admin: 04/24/25 12:37 Dose: Not Given Gabapentin (Gabapentin 600 Mg Tablet) 600 mg PO TID [facility] Last Admin: 04/24/25 07:53 Dose: 600 mg Piperacillin Sod/Tazobactam (Sod 4.5 gm/ Sodium Chloride) 100 mls @ 200 mls/hr IV Q6H [facility] Loratadine (Loratadine 10 Mg Tablet) 10 mg PO DAILY [facility] Last Admin: 04/24/25 07:53 Dose: 10 mg Magnesium Hydroxide (Milk Of Magnesia 30 Ml Oral.Susp) 30 ml PO DAILY PRN PRN Reason: Constipation Megestrol Acetate (Megestrol Acetate 400 Mg/10 Ml Oral.Susp) 625 mg G-TUBE DAILY [facility] Last Admin: 04/24/25 08:40 Dose: 625 mg Melatonin (Melatonin 3 Mg Tablet) 6 mg PO BEDTIME PRN PRN Reason: Insomnia Last Admin: 04/23/25 20:25 Dose: 6 mg Mirtazapine (Mirtazapine 15 Mg Tablet) 45 mg G-TUBE BEDTIME [facility] Montelukast Sodium (Montelukast Sodium 10 Mg Tablet) 10 mg G-TUBE DAILY [facility] Last Admin: 04/24/25 07:52 Dose: 10 mg Morphine Sulfate (Morphine Sulfate 2 Mg/Ml Cartridge) 2 mg IVPUSH Q3H PRN; Protocol PRN Reason: sob Last Admin: 04/24/25 12:36 Dose: 2 mg Non-Formulary Medication (Pilocarpine Hcl) 5 mg PO TID [facility] Non-Formulary Medication (Somatropin [Serostim]) 6 mg SUBCUT DAILY MIC[facility]EL Risperidone (Risperidone 3 Mg Tablet) 3 mg G-TUBE BEDTIME [facility] Last Admin: 04/23/25 22:33 Dose: 3 mg Sodium Chloride (0.9 % Sodium Chloride Flush 3 Ml Syringe) 3 ml IVFLUSH QSHIFT [facility] Last Admin: 04/24/25 08:40 Dose: 3 ml Tamsulosin HCl (Tamsulosin Hcl 0.4 Mg Capsule) 0.4 mg PO BEDTIME [facility] Last Admin: 04/23/25 22:33 Dose: 0.4 mg Tramadol HCl (Tramadol Hcl 50 Mg Tablet) 50 mg G-TUBE BID PRN PRN Reason: Pain (Scale Score 7-10) Last Admin: 04/24/25 08:40 Dose: 50 mg Home Medications ?Medication ?Instructions ?Recorded ?Confirmed ?Last Taken ?Type calcium 600 mg (as 1 tab feeding tube BID@1200, 1800 12/16/23 04/24/25 04/22/25 History carbonate)-vitamin D3 20 mcg (800 unit) tablet ferrous gluconate 324 mg (38 mg 324 mg feeding tube BI D 12/16/23 04/24/25 04/22/25 History iron) tablet risperidone 3 mg tablet 3 mg feeding tube BEDTIME 04/24/25 04/22/25 History omeprazole 10 mg capsule,delayed 10 mg feeding tube DA GLENN@0630 PRN 01/10/24 04/24/25 03/06/24 History release Acid Reflux albuterol sulfate 90 mcg/actuation 2 puff inhalation Q 6H PRN wheezing 03/07/24 04/24/25 Unknown History aerosol inhaler (Ventolin HFA) somatropin 6 mg subcutaneous 6 mg subcut BEDTIME 05/0704/24/25 04/22/25 History solution (Serostim) ascorbic acid (vitamin C) 250 mg 250 mg feeding tube D AILY 01/27/25 04/24/25 04/22/25 History tablet brimonidine 0.2 %-timolol 0.5 % 1 drp ophthalmic (eye) BID 01/27/25 04/24/25 04/22/25 History eye drops (Combigan) megestrol 625 mg/5 mL (125 mg/mL) 5 ml feeding tube DA GLENN daily 01/27/25 04/24/25 04/22/25 History oral suspension netarsudil 0.02 %-latanoprost 1 drp ophthalmic (eye) B EDTIME 01/27/25 04/24/25 04/22/25 History 0.005 % eye drops (Rocklatan) albuterol sulfate 2.5 mg/3 mL 2.5 mg inhalation Q4H IL N 04/23/25 04/24/25 Unknown History (0.083 %) solution for nebulization shortness of breat h or wheezing cetirizine 10 mg tablet 10 mg feeding tube DAILY 04/24/25 04/22/25 History clotrimazole 10 mg klaudia 10 mg PO TID candidiasis 04/24/25 04/22/25 History glycopyrrolate 1 mg tablet 1 mg PO TID 04/23/2504/22/25 History mirtazapine 45 mg tablet 45 mg feeding tube BEDTIME 0 04/23/25 04/24/25 04/22/25 History montelukast 10 mg tablet 10 mg PO DAILY 04/23/2504/1004/22/25 History acetaminophen 500 mg tablet 500 mg feeding tube BID IL N Fever 04/24/25 04/24/25 Unknown History Or Pain clonazepam 1 mg tablet 1 mg feeding tube DAILY 04/1004/24/25 Unknown History Physical Exam 2 Vital Signs: Vital Signs: Last Vital Signs Temp 97.7 F 04/24/25 07:24 Pulse 74 04/24/25 08:48 Resp 20 04/24/25 08:48 BP 142/78 H 04/24/25 08:48 Pulse Ox 96 04/24/25 08:48 O2 Del Method Oxymask 04/24/25 08:48 O2 Flow Rate 6 04/24/25 08:48 Oxygen Flow Rate 10 04/23/25 11:48 BMI result Body Mass Index 27.1 Const: General: cooperative HEENT: Head: Yes normal to inspection Face and sinus: Yes normal facial exam Mouth: Normal oral and palatal mucosa present Teeth and gingiva: d entition normal Eyes: General: appearance normal, both eyes and all related structures P upils: Equal, round and reactive pupils present Resp: Other: mild rhonchi bases Cardio: Rate: regular rate Rhythm: regular rhythm GI: Other: peg tube Palpation (GI): Soft to palpation and nontender : General: Yes no CVA tenderness Back/Spine/Pelvis: Back: no CVA tenderness Skin: General skin exam: no rashes or lesions noted Neuro: General: moves all extremities Cranial nerves: Yes Equal, round and reactive pupils present Extrem: General: Yes normal to inspection Psych: Appearance: grossly normal Results Labs 04/24/25 05:28 04/24/25 05:28 Labs: Short CBC 04/24/25 Range/Units 05:28 WBC 9.8 (4.8-10.8) X10*3/uL Hgb 13.8 L (14.0-18.0) g/dl Hct 41.0 L (42.0-52.0) % Plt Count 203 (160-400) X10*3/uL BMP 04/24/25 05:28 Sodium 140 Potassium 4.3 Chloride 107 Carbon Dioxide 21 L BUN 16 Creatinine 0.92 Calcium 8.5 D Assessment and Plan (1) Chronic pulmonary embolism: Qualifiers: Acute cor pulmonale presence: without acute cor pulmonale Pulmonary embolism type: unspecified Qualified Code(s): I27.82 - Chronic pulmonary embolism Status: Acute (2) On tube feeding diet: Status: Acute (3) Dysphagia: Status: Acute (4) HIV (human immunodeficiency virus infection): Qualifiers: HIV symptom status: unspecified Qualified Code(s): Z21 - Asymptomatic human immunodeficiency virus [HIV] infection status Status: Acute Plan He has chronic PE and some aspiration/lung abscess early possible bases. He has reported controlled HIV and no TB (neg Tspots here within the year.) May switch to piperacillin/tazobactam for five days. Stop Ceftriaxone and Doxycycline. Stop respiratory isolation. Anticoagulation prn need Hematology.
--- NOTE | 2025-04-24 13:55 | MHC.SL.SWA ---
Speech Pathologist Impression: Risk of Aspiration, Oropharyngeal Dysphagia Dysphasia Diet Status: No Change Liquid Consistency and Strategies for Safe Swallow: Liquid Intake Recommendation: NPO Solid Food Consistency: Dietary Recommendations: NPO Additional Modifications to Solid Foods: Overt s/s of aspiration with intake of ice chips/trace thickened liquids by spoon. Oral Medication Intake: NPO Please contact the pharmacy regarding appropriate crushable or liquid drug formulations that are available whenever modified delivery is recommended. Recommendation for Speech: Inpatient Speech Therapy Modified Barium Swallow Study - Outpatient Comment: Patient would benefit from MBSS (scheduled as outpatient on 05/13, if possible, complete during hospitalization) to assess potential consistencies for supplemental PO feeding. Frequency/Duration: Date Range for Service Req: Timeline to reassess: Subcontracts Manager Clinican/Clinical Fellow: No Supervisory Statement: I have reviewed and agree with the student/clinical fellow's documentation: N/A Speech Language Pathologist: Laura Hill M.A., CCC-SIGNAL MAINTAINER HELPER
[2025-04-24] MEDS: Dorzolamide HCl 2 % Ophth Sol 10 ML DRPBTL 1 DROP EYE-BOTH ×2 (13:58→20:15)
[2025-04-24 15:28] LABS: HIV RNA PCR Qn Copies NOT DETECTED copies/mL (NOT DETECTED); HIV RNA PCR Qn Log Copies NOT DETECTED (NOT DETECTED)
--- NOTE | 2025-04-24 18:28 | PC.NURSE ---
Jevity tube feedings started per protocol. Titrated to 30cc/hr @ 1530. Residual 20cc. Tolerating q4h H2O boluses. Remains NPO. Given mouth care. o2 titrated to 3L nasal cannula. sats 93-95%.
[2025-04-25 03:29] VITALS: BP 132/76; PULSE 61; RESP 16; TEMP 36.3; O2SAT 95
[2025-04-25 06:49] LABS: Hematocrit 42.5 % (42.0-52.0); Hemoglobin 14.6 g/dl (14.0-18.0); Mean Corpuscular HGB Conc 34.4 g/dl (31.0-36.0); Mean Corpuscular Hemoglobin 33.6 pg (27.0-33.0); Mean Corpuscular Volume 97.9 fL (80.0-98.0); NRBC Abs Auto 0.000 X10*3/uL (0.0-0.012); NRBC Pct Auto 0.0 /100WBC (0.0-0.2); Platelet Count 198 X10*3/uL (160-400); Red Blood Count 4.34 X10*6/uL (4.60-5.80); White Blood Count 6.4 X10*3/uL (4.8-10.8)
[2025-04-25 07:03] LABS: Anion Gap 19 (12-20); Blood Urea Nitrogen 18 mg/dL (9-16); Calcium 8.3 mg/dL (8.4-10.2); Carbon Dioxide 20 mmol/L (22-29); Chloride 104 mmol/L (96-108); Creatinine Clr Calc Pharmacy 81.9; Estimated Glomerular Filt Rate > 60; Potassium 3.9 mmol/L (3.3-5.1); Sodium 139 mmol/L (135-145)
[2025-04-25 08:07] VITALS: BP 124/85; PULSE 72; RESP 12; TEMP 36.4; O2SAT 92
[2025-04-25 08:16] VITALS: PULSE 80; O2SAT 91
--- NOTE | 2025-04-25 08:54 | P.PNIM_ITS ---
Subjective Subjective Date of Service: 04/25/25 Interval History: cehst pain Physical Exam 2 Vital Signs: Vital Signs: Last Vital Signs Temp 97.5 F 04/25/25 08:07 Pulse 80 04/25/25 08:16 Resp 12 04/25/25 08:07 BP 124/85 04/25/25 08:07 Pulse Ox 92 04/25/25 08:07 O2 Del Method Nasal Cannula 04/25/25 08:07 O2 Flow Rate 3 04/25/25 08:07 Oxygen Flow Rate 10 04/23/25 11:48 BMI result Body Mass Index 27.1 Const: General: cooperative HEENT: Head: Yes normal to inspection Face and sinus: Yes normal facial exam Mouth: Normal oral and palatal mucosa present Teeth and gingiva: d entition normal Eyes: General: appearance normal, both eyes and all related structures P upils: Equal, round and reactive pupils present Resp: Other: mild rhonchi bases Cardio: Rate: regular rate Rhythm: regular rhythm GI: Other: peg tube Palpation (GI): Soft to palpation and nontender : General: Yes no CVA tenderness Back/Spine/Pelvis: Back: no CVA tenderness Skin: General skin exam: no rashes or lesions noted Neuro: General: moves all extremities Cranial nerves: Yes Equal, round and reactive pupils present Extrem: General: Yes normal to inspection Psych: Appearance: grossly normal Objective Data Active Medications Acetaminophen (Acetaminophen 325 Mg Tablet) 650 mg PO Q6H PRN PRN Reason: Pain, Mild 1-3,fever,headache Albuterol/Ipratropium (Albuterol/Iprat 2.5/0.5mg 3 Ml Ampul.Neb) 3 ml INHALE RQ4H WHILE AWAKE PRN PRN Reason: sob Apixaban (Apixaban 5 Mg Tablet) 5 mg G-TUBE BID [facility]; Protocol Last Admin: 04/24/25 20:11 Dose: 5 mg Documented By: DRAGAN Ascorbic Acid (Ascorbic Acid 250 Mg Tablet) 250 mg PO DAILY [facility] Last Admin: 04/24/25 07:53 Dose: 250 mg Documented By: MICHELLE Bictegravir/Emtricitabine/Tenofovir (Bictegrav/Emtricit/Tenofov Ala Tablet) 1 tab PO DAILY [facility] Last Admin: 04/24/25 08:40 Dose: 1 tab Documented By: MICHELLE Budesonide (Budesonide 0.25 Mg/2 Ml Ampul.Neb) 0.25 mg INHALE RBID [facility] Last Admin: 04/25/25 08:09 Dose: 0.25 mg Documented By: JESUS Calcium Carbonate (Calcium Carbonate 750 Mg Tab.Chew) 750 mg PO Q4H PRN PRN Reason: Heartburn Clonazepam (Clonazepam 1 Mg Tablet) 1 mg PO DAILY [facility] Last Admin: 04/24/25 07:52 Dose: 1 mg Documented By: MICHELLE Dorzolamide HCl (Dorzolamide Hcl 2 % Ophth Carol 10 Ml Drpbtl) 1 drop EYE-BOTH BID [facility] Last Admin: 04/24/25 20:15 Dose: 1 drop Documented By: DRAGAN Gabapentin (Gabapentin 600 Mg Tablet) 600 mg PO TID [facility] Last Admin: 04/24/25 20:12 Dose: 600 mg Documented By: DRAGAN Piperacillin Sod/Tazobactam (Sod 4.5 gm/ Sodium Chloride) 100 mls @ 200 mls/hr IV Q6H [facility] Last Infusion: 04/25/25 07:15 Dose: Infused Documented By: RACHELL Loratadine (Loratadine 10 Mg Tablet) 10 mg PO DAILY [facility] Last Admin: 04/24/25 07:53 Dose: 10 mg Documented By: MICHELLE Magnesium Hydroxide (Milk Of Magnesia 30 Ml Oral.Susp) 30 ml PO DAILY PRN PRN Reason: Constipation Megestrol Acetate (Megestrol Acetate 400 Mg/10 Ml Oral.Susp) 625 mg G-TUBE DAILY [facility] Last Admin: 04/24/25 08:40 Dose: 625 mg Documented By: MICHELLE Melatonin (Melatonin 3 Mg Tablet) 6 mg PO BEDTIME PRN PRN Reason: Insomnia Last Admin: 04/23/25 20:25 Dose: 6 mg Documented By: EVERETT Mirtazapine (Mirtazapine 15 Mg Tablet) 45 mg G-TUBE BEDTIME [facility] Last Admin: 04/24/25 20:11 Dose: 45 mg Documented By: DRAGAN Montelukast Sodium (Montelukast Sodium 10 Mg Tablet) 10 mg G-TUBE DAILY [facility] Last Admin: 04/24/25 07:52 Dose: 10 mg Documented By: MICHELLE Morphine Sulfate (Morphine Sulfate 2 Mg/Ml Cartridge) 2 mg IVPUSH Q3H PRN; Protocol PRN Reason: sob Last Admin: 04/24/25 20:44 Dose: 2 mg Documented By: DRAGAN Non-Formulary Medication (Pilocarpine Hcl) 5 mg PO TID MICHAEL Non-Formulary Medication (Somatropin [Serostim]) 6 mg SUBCUT DAILY MICHAEL Risperidone (Risperidone 3 Mg Tablet) 3 mg G-TUBE BEDTIME [facility] Last Admin: 04/24/25 20:11 Dose: 3 mg Documented By: DRAGAN Sodium Chloride (0.9 % Sodium Chloride Flush 3 Ml Syringe) 3 ml IVFLUSH QSHIFT [facility] Last Admin: 04/25/25 07:14 Dose: Not Given Documented By: RACHELL Non-Admin Reason: Previously Administered Tamsulosin HCl (Tamsulosin Hcl 0.4 Mg Capsule) 0.4 mg PO BEDTIME MICHAEL Last Admin: 04/24/25 20:11 Dose: 0.4 mg Documented By: DRAGAN Tramadol HCl (Tramadol Hcl 50 Mg Tablet) 50 mg G-TUBE BID PRN PRN Reason: Pain (Scale Score 7-10) Last Admin: 04/24/25 08:40 Dose: 50 mg Documented By: MICHELLE Labs 04/25/25 06:32 04/25/25 06:32 Labs: Laboratory Results - last 24 hr 04/23/25 04/23/25 04/25/25 12:42 13:02 06:32 MCV 97.9 MCH 33.6 H MCHC 34.4 RDW 14.1 Plt Count 198 MPV 10.9 Absolute Nucleated RBC 0.000 Nucleated RBC % (auto) 0.0 Anion Gap 19 Estim Creat Clear Calc 81.9 Estimated GFR > 60 Random Glucose 107 Calcium 8.3 L HIV-1 RNA copies/mL NOT DETECTED HIV-1 RNA logcopies/mL NOT DETECTED M.tuberculosis DNA (PCR) NOT DETECTED MTB Rifampin Resis PCR NOT TESTED Microbiology Microbiology Results: Microbiology 04/23/25 13:06 Blood Culture - Preliminary Blood - Venous No growth after 24 hours. 04/23/25 12:18 Blood Culture - Preliminary Blood - Venous No growth after 24 hours. 04/23/25 12:42 Direct Acid Fast Bacilli Smear - Final Sputum - Suctioned Assessment and Plan (1) Chronic pulmonary embolism: Status: Acute Plan 60M PMH HIV, dysphagia with G-tube, extrapyramidal condition unspecified, nocturnal hypoxia, hypogonadism, history of lung abscess with decortication, history of pulmonary embolism not on anticoagulation presented with shortness breath and cough Acute hypoxic respiratory failure due to aspiration pneumonia and chronic pulmonary embolism Infectious disease appreciated, changed to Zosyn, no need for airborne isolation TBI unlikely started Eliquis - outpatient Hematology Speech eval as patient occasionally takes food orally - recommending NPO outpatient modified barium HIV Follow-up viral level and CD4 Continue anti-retroviral Full code reason for continued hospitalization:cultures, hypoxia Quality Stroke Does the patient have a stroke diagnosis?: No VTE Prior VTE?: Yes VTE Risk Level:: Medical - moderate - high VTE Device Contraindication: Treatment Not Indicated VTE Drug Contraindication: N/A - Med Ordered
[2025-04-25] MEDS: Bictegrav/Emtricit/Tenofov Ala TABLET 1 TAB PO (09:07)
[2025-04-25] MEDS: Dorzolamide HCl 2 % Ophth Sol 10 ML DRPBTL 1 DROP EYE-BOTH ×2 (09:12→20:37)
[2025-04-25 16:07] VITALS: BP 129/79; PULSE 83; RESP 20; TEMP 37; O2SAT 93
[2025-04-25 19:00] VITALS: PULSE 95; RESP 20; O2SAT 92
[2025-04-25 20:00] VITALS: BP 101/69; PULSE 80; RESP 18; TEMP 36.3; O2SAT 91
[2025-04-25] MEDS: 0.9 % Sodium Chloride Flush 3 ML SYRINGE IVFLUSH (20:33)
[2025-04-26 03:04] VITALS: BP 126/80; PULSE 82; RESP 18; TEMP 36.3; O2SAT 93
[2025-04-26 06:39] LABS: Hematocrit 45.1 % (42.0-52.0); Hemoglobin 15.4 g/dl (14.0-18.0); Mean Corpuscular HGB Conc 34.1 g/dl (31.0-36.0); Mean Corpuscular Hemoglobin 33.4 pg (27.0-33.0); Mean Corpuscular Volume 97.8 fL (80.0-98.0); NRBC Abs Auto 0.000 X10*3/uL (0.0-0.012); NRBC Pct Auto 0.0 /100WBC (0.0-0.2); Platelet Count 224 X10*3/uL (160-400); Red Blood Count 4.61 X10*6/uL (4.60-5.80); White Blood Count 4.7 X10*3/uL (4.8-10.8)
[2025-04-26 06:56] LABS: Anion Gap 14 (12-20); Blood Urea Nitrogen 18 mg/dL (9-16); Calcium 8.4 mg/dL (8.4-10.2); Carbon Dioxide 22 mmol/L (22-29); Chloride 110 mmol/L (96-108); Creatinine Clr Calc Pharmacy 81.9; Estimated Glomerular Filt Rate > 60; Potassium 3.7 mmol/L (3.3-5.1); Sodium 142 mmol/L (135-145)
[2025-04-26 07:33] VITALS: BP 128/80; PULSE 80; RESP 20; TEMP 36.2; O2SAT 92
[2025-04-26 08:08] VITALS: PULSE 80; RESP 18; O2SAT 96
[2025-04-26] MEDS: 0.9 % Sodium Chloride Flush 3 ML SYRINGE IVFLUSH ×2 (08:16→17:27)
[2025-04-26] MEDS: Dorzolamide HCl 2 % Ophth Sol 10 ML DRPBTL 1 DROP EYE-BOTH ×2 (08:32→19:59)
[2025-04-26] MEDS: Bictegrav/Emtricit/Tenofov Ala TABLET 1 TAB PO (08:32)
--- NOTE | 2025-04-26 10:54 | P.PNIM_ITS ---
Subjective Subjective Date of Service: 04/26/25 Interval History: Starting to feel better Physical Exam 2 Vital Signs: Vital Signs: Last Vital Signs Temp 97.2 F 04/26/25 07:33 Pulse 80 04/26/25 08:08 Resp 18 04/26/25 08:08 BP 128/80 04/26/25 07:33 Pulse Ox 92 04/26/25 07:33 O2 Del Method Nasal Cannula 04/26/25 07:33 O2 Flow Rate 3 04/26/25 07:33 Oxygen Flow Rate 10 04/23/25 11:48 BMI result Body Mass Index 27.1 Const: General: cooperative HEENT: Head: Yes normal to inspection Face and sinus: Yes normal facial exam Mouth: Normal oral and palatal mucosa present Teeth and gingiva: d entition normal Eyes: General: appearance normal, both eyes and all related structures P upils: Equal, round and reactive pupils present Resp: Other: mild rhonchi bases Cardio: Rate: regular rate Rhythm: regular rhythm GI: Other: peg tube Palpation (GI): Soft to palpation and nontender : General: Yes no CVA tenderness Back/Spine/Pelvis: Back: no CVA tenderness Skin: General skin exam: no rashes or lesions noted Neuro: General: moves all extremities Cranial nerves: Yes Equal, round and reactive pupils present Extrem: General: Yes normal to inspection Psych: Appearance: grossly normal Objective Data Active Medications Acetaminophen (Acetaminophen 325 Mg Tablet) 650 mg PO Q6H PRN PRN Reason: Pain, Mild 1-3,fever,headache Last Admin: 04/25/25 14:52 Dose: 650 mg Documented By: RACHELL Albuterol/Ipratropium (Albuterol/Iprat 2.5/0.5mg 3 Ml Ampul.Neb) 3 ml INHALE RQ4H WHILE AWAKE PRN PRN Reason: sob Apixaban (Apixaban 5 Mg Tablet) 5 mg G-TUBE BID [facility]; Protocol Last Admin: 04/26/25 08:32 Dose: 5 mg Documented By: RACHELL Ascorbic Acid (Ascorbic Acid 250 Mg Tablet) 250 mg PO DAILY [facility] Last Admin: 04/26/25 08:32 Dose: 250 mg Documented By: RACHELL Bictegravir/Emtricitabine/Tenofovir (Bictegrav/Emtricit/Tenofov Ala Tablet) 1 tab PO DAILY [facility] Last Admin: 04/26/25 08:32 Dose: 1 tab Documented By: RACHELL Budesonide (Budesonide 0.25 Mg/2 Ml Ampul.Neb) 0.25 mg INHALE RBID [facility] Last Admin: 04/26/25 08:06 Dose: 0.25 mg Documented By: NEFTALY Calcium Carbonate (Calcium Carbonate 750 Mg Tab.Chew) 750 mg PO Q4H PRN PRN Reason: Heartburn Clonazepam (Clonazepam 1 Mg Tablet) 1 mg PO DAILY [facility] Last Admin: 04/26/25 08:32 Dose: 1 mg Documented By: RACHELL Dorzolamide HCl (Dorzolamide Hcl 2 % Ophth Carol 10 Ml Drpbtl) 1 drop EYE-BOTH BID [facility] Last Admin: 04/26/25 08:32 Dose: 1 drop Documented By: RACHELL Gabapentin (Gabapentin 600 Mg Tablet) 600 mg PO TID [facility] Last Admin: 04/26/25 08:32 Dose: 600 mg Documented By: RACHELL Piperacillin Sod/Tazobactam (Sod 4.5 gm/ Sodium Chloride) 100 mls @ 200 mls/hr IV Q6H [facility] Last Infusion: 04/26/25 07:03 Dose: Infused Documented By: RACHELL Loratadine (Loratadine 10 Mg Tablet) 10 mg PO DAILY [facility] Last Admin: 04/26/25 08:32 Dose: 10 mg Documented By: RACHELL Magnesium Hydroxide (Milk Of Magnesia 30 Ml Oral.Susp) 30 ml PO DAILY PRN PRN Reason: Constipation Megestrol Acetate (Megestrol Acetate 400 Mg/10 Ml Oral.Susp) 625 mg G-TUBE DAILY [facility] Last Admin: 04/26/25 08:31 Dose: 625 mg Documented By: RACHELL Melatonin (Melatonin 3 Mg Tablet) 6 mg PO BEDTIME PRN PRN Reason: Insomnia Last Admin: 04/23/25 20:25 Dose: 6 mg Documented By: EVERETT Mirtazapine (Mirtazapine 15 Mg Tablet) 45 mg G-TUBE BEDTIME [facility] Last Admin: 04/25/25 20:37 Dose: 45 mg Documented By: DRAGAN Montelukast Sodium (Montelukast Sodium 10 Mg Tablet) 10 mg G-TUBE DAILY [facility] Last Admin: 04/26/25 08:32 Dose: 10 mg Documented By: RACHELL Morphine Sulfate (Morphine Sulfate 2 Mg/Ml Cartridge) 2 mg IVPUSH Q3H PRN; Protocol PRN Reason: sob Last Admin: 04/26/25 08:13 Dose: 2 mg Documented By: RACHELL Non-Formulary Medication (Somatropin [Serostim]) 6 mg SUBCUT DAILY MICHAEL Risperidone (Risperidone 3 Mg Tablet) 3 mg G-TUBE BEDTIME MICHAEL Last Admin: 04/25/25 20:37 Dose: 3 mg Documented By: DRAGAN Sodium Chloride (0.9 % Sodium Chloride Flush 3 Ml Syringe) 3 ml IVFLUSH QSHIFT [facility] Last Admin: 04/26/25 08:16 Dose: 3 ml Documented By: RACHELL Tamsulosin HCl (Tamsulosin Hcl 0.4 Mg Capsule) 0.4 mg PO BEDTIME MICHAEL Last Admin: 04/25/25 20:37 Dose: 0.4 mg Documented By: DRAGAN Tramadol HCl (Tramadol Hcl 50 Mg Tablet) 50 mg G-TUBE BID PRN PRN Reason: Pain (Scale Score 7-10) Last Admin: 04/24/25 08:40 Dose: 50 mg Documented By: MICHELLE Labs 04/26/25 05:55 04/26/25 05:55 Labs: Laboratory Results - last 24 hr 04/26/25 04/26/25 05:54 05:55 MCV 97.8 MCH 33.4 H MCHC 34.1 RDW 14.2 Plt Count 224 MPV 10.5 Absolute Nucleated RBC 0.000 Nucleated RBC % (auto) 0.0 Hold Purple Top SEE NOTE Anion Gap 14 Estim Creat Clear Calc 81.9 Estimated GFR > 60 Random Glucose 99 Calcium 8.4 Microbiology Microbiology Results: Microbiology 04/23/25 13:06 Blood Culture - Preliminary Blood - Venous No growth after 48 hours. 04/23/25 12:18 Blood Culture - Preliminary Blood - Venous No growth after 48 hours. Assessment and Plan (1) Chronic pulmonary embolism: Status: Acute Plan 60M PMH HIV, dysphagia with G-tube, extrapyramidal condition unspecified, nocturnal hypoxia, hypogonadism, history of lung abscess with decortication, history of pulmonary embolism not on anticoagulation presented with shortness breath and cough Acute hypoxic respiratory failure due to aspiration pneumonia and chronic pulmonary embolism Infectious disease appreciated, changed to Zosyn, no need for airborne isolation TB unlikely started Eliquis - outpatient Hematology Speech eval as patient occasionally takes food orally - recommending NPO outpatient modified barium HIV viral level undetectable Continue anti-retroviral Full code reason for continued hospitalization:cultures, hypoxia Quality Stroke Does the patient have a stroke diagnosis?: No VTE Prior VTE?: Yes VTE Risk Level:: Medical - moderate - high VTE Device Contraindication: Treatment Not Indicated VTE Drug Contraindication: N/A - Med Ordered
[2025-04-26 15:22] VITALS: BP 120/77; PULSE 73; RESP 18; TEMP 36.7; O2SAT 95
[2025-04-26] MEDS: Milk of Magnesia 30 ML ORAL.SUSP PO (16:18)
[2025-04-26 18:51] VITALS: PULSE 81; RESP 18; O2SAT 92
[2025-04-26 19:13] LABS: TS Negative Control Passed; TS Panel A 2; TS Panel B 0; TS Positive Control Passed; TSpotTB Negative (Negative)
[2025-04-26] MEDS: SOMATROPIN 6 MG 6 EACH SUBCUT (19:47)
[2025-04-26 19:53] VITALS: BP 115/71; PULSE 78; RESP 18; TEMP 36.4; O2SAT 95
[2025-04-27] MEDS: 0.9 % Sodium Chloride Flush 3 ML SYRINGE IVFLUSH ×2 (00:54→08:37)
[2025-04-27 04:50] VITALS: BP 117/77; PULSE 70; RESP 18; TEMP 36.4; O2SAT 94
[2025-04-27 06:37] LABS: Hematocrit 45.7 % (42.0-52.0); Hemoglobin 15.5 g/dl (14.0-18.0); Mean Corpuscular HGB Conc 33.9 g/dl (31.0-36.0); Mean Corpuscular Hemoglobin 33.6 pg (27.0-33.0); Mean Corpuscular Volume 99.1 fL (80.0-98.0); NRBC Abs Auto 0.000 X10*3/uL (0.0-0.012); NRBC Pct Auto 0.0 /100WBC (0.0-0.2); Platelet Count 223 X10*3/uL (160-400); Red Blood Count 4.61 X10*6/uL (4.60-5.80); White Blood Count 5.7 X10*3/uL (4.8-10.8)
[2025-04-27 07:17] LABS: Anion Gap 15 (12-20); Blood Urea Nitrogen 19 mg/dL (9-16); Calcium 8.3 mg/dL (8.4-10.2); Carbon Dioxide 21 mmol/L (22-29); Chloride 108 mmol/L (96-108); Creatinine Clr Calc Pharmacy 79.3; Estimated Glomerular Filt Rate > 60; Potassium 4.1 mmol/L (3.3-5.1); Sodium 140 mmol/L (135-145)
[2025-04-27 07:54] VITALS: BP 117/83; PULSE 76; RESP 12; TEMP 36.6; O2SAT 93
[2025-04-27 08:23] VITALS: PULSE 74; RESP 16; O2SAT 93
[2025-04-27] MEDS: Bictegrav/Emtricit/Tenofov Ala TABLET 1 TAB PO (08:24)
[2025-04-27] MEDS: Dorzolamide HCl 2 % Ophth Sol 10 ML DRPBTL 1 DROP EYE-BOTH (09:25)
--- NOTE | 2025-04-27 09:54 | PM.DS ---
DS: Providers Provider Date of Service: 04/27/25 Date of admission: 04/23/25 16:27 Date of discharge: 04/27/25 Primary care physician: Terese Keenan MD Consults: 04/23/25 16:40 Consult to Infectious Diseases Routine Consulting Provider: [facility] Reason for consultation: pna, hemptysis, hiv DS: Diagnosis Discharge Diagnosis (1) Chronic pulmonary embolism: Status: Acute DS: Summary Hospital Course Hospital Course: from initial hpi: 60M PMH HIV, dysphagia with G-tube, extrapyramidal condition unspecified, nocturnal hypoxia, hypogonadism, history of lung abscess with decortication, history of pulmonary embolism not on anticoagulation presented with shortness breath and cough. Patient is a vague historian but reports 3 days of hemoptysis, shortness for breath, increased weakness. Was on urgent care and found to have oxygenation of 86% on room air. On 6 minute walk test 10 days prior to presentation patient did not desaturate. In ED CT angio showed chronic pulmonary embolism and right-sided pneumonia. hospital course: Patient was admitted for acute hypoxic respiratory failure due to aspiration pneumonia and chronic pulmonary embolism. He was seen by infectious disease who recommended IV Zosyn, felt patient was low risk for TB as recently tested negative and CAT scan not typical of TB, airborne isolation discontinued. For PE was started on Eliquis. Patient was seen by speech therapy who recommended patient should be NPO intake G-tube feeds only. We will follow up with speech for modified barium swallow. For HIV viral remained undetectable and was continued on anti-retroviral. Patient will be discharged home on 5 more days of Augmentin. Time Attestation Discharge Coordination Time (in mins): 37 Quality: Safe Use of Opioids Does Pt have an Active Cancer Diagnosis on the Problem List?: No Quality: Stroke Does the patient have a stroke diagnosis?: No Physical Exam Vital Signs: Vital Signs: Last Vital Signs Temp 97.9 F 04/27/25 07:54 Pulse 74 04/27/25 08:23 Resp 16 04/27/25 08:23 BP 117/83 04/27/25 07:54 Pulse Ox 93 04/27/25 07:54 O2 Del Method Nasal Cannula 04/27/25 07:54 O2 Flow Rate 3 04/27/25 07:54 Oxygen Flow Rate 10 04/23/25 11:48 BMI result Body Mass Index 27.1 Const: General: cooperative HEENT: Head: Yes normal to inspection Face and sinus: Yes normal facial exam Mouth: Normal oral and palatal mucosa present Teeth and gingiva: dentition normal Eyes: General: appearance normal, both eyes and all related structures Pupils: Equal, round and reactive pupils present Resp: Other: mild rhonchi bases Cardio: Rate: regular rate Rhythm: regular rhythm GI: Other: peg tube Palpation (GI): Soft to palpation and nontender : General: Yes no CVA tenderness Back/Spine/Pelvis: Back: no CVA tenderness Skin: General skin exam: no rashes or lesions noted Neuro: General: moves all extremities Cranial nerves: Yes Equal, round and reactive pupils present Extrem: General: Yes normal to inspection Psych: Appearance: grossly normal DS: Data Data Completed and Pending Completed studies during hospitalization [Text1]: Procedures Drainage of Left Lung with Drainage Device, Open Approach (12/30/22) Drainage of Spinal Canal, Percutaneous Approach, Diagnostic (03/15/24) Excision of Esophagogastric Junction, Via Natural or Artificial Opening Endoscopic, Diagnostic (07/16/23) Excision of Stomach, Pylorus, Via Natural or Artificial Opening Endoscopic, Diagnostic (07/16/23) Excision of Upper Esophagus, Via Natural or Artificial Opening Endoscopic, Diagnostic (07/16/23) Fluoroscopy of Spinal Cord (03/15/24) Insertion of Endotracheal Airway into Trachea, Via Natural or Artificial Opening (12/30/22) Insertion of Feeding Device into Stomach, Percutaneous Approach (07/27/23) Insertion of Infusion Device into Superior Vena Cava, Percutaneous Approach (12/30/22) Insertion of Infusion Device into Upper Vein, Percutaneous Approach (07/16/23) Introduction of Nutritional Substance into Upper GI, Via Natural or Artificial Opening (07/27/23) Introduction of Vasopressor into Central Vein, Percutaneous Approach (12/30/22) Release Left Lung, Open Approach (12/30/22) Reposition Left Tibia with Internal Fixation Device, Open Approach (02/12/22) Respiratory Ventilation, 24-96 Consecutive Hours (12/30/22) Ultrasonography of Superior Vena Cava, Guidance (12/30/22) Labs on day of discharge: Laboratory Results - last 24 hr 04/23/25 04/27/25 13:06 05:45 WBC 5.7 RBC 4.61 Hgb 15.5 Hct 45.7 MCV 99.1 H MCH 33.6 H MCHC 33.9 RDW 14.2 Plt Count 223 MPV 11.1 Absolute Nucleated RBC 0.000 Nucleated RBC % (auto) 0.0 Sodium 140 Potassium 4.1 Chloride 108 Carbon Dioxide 21 L Anion Gap 15 BUN 19 H Creatinine 0.92 Estim Creat Clear Calc 79.3 Estimated GFR > 60 Random Glucose 118 H Calcium 8.3 L TB Test (T-Spot) Com Negative TB Test Nil Control Passed TB Test Panel A 2 TB Test Panel B 0 TB Test Positive Cntrl Passed Preliminary micro results at discharge 04/23/25 13:06 Blood Culture - Preliminary Blood - Venous No growth after 48 hours. 04/23/25 12:18 Blood Culture - Preliminary Blood - Venous No growth after 48 hours. Discharge Plan Discharge Anticipated Discharge Date/Time: 04/27/25 09:51 Patient Disposition: Home Health Service Discharge Diagnosis: apsiration, pe Referrals: Terese Rivera MD [Primary Care Provider, Internal Medicine] - 1 Week Discharge Medications: New tamsulosin 0.4 mg Capsule 0.4 mg PO BEDTIME Qty: 0 0RF Eliquis 5 mg Tablet 5 mg G-tube BID Qty: 180 0RF amoxicillin-pot clavulanate 400-57 mg/5 mL suspension for reconstitution 10 ml PO BID Qty: 100 0RF Continued budesonide 0.25 mg/2 mL suspension for nebulization 0.25 mg inhalation BID 90 Days Qty: 360 3RF Biktarvy 50-200-25 mg tablet 1 tab PO DAILY Qty: 14 0RF Rx Instructions: Ok to crush and give via feeding tube risperidone 3 mg tablet 3 mg feeding tube BEDTIME ferrous gluconate 324 mg (38 mg iron) tablet 324 mg feeding tube BID calcium carbonate-vitamin D3 600 mg-20 mcg (800 unit) tablet 1 tab feeding tube BID@1200,1800 omeprazole 10 mg Capsule,Delayed Release(Dr/Ec) 10 mg feeding tube DAILY@0630 PRN (Reason: Acid Reflux) albuterol sulfate [Ventolin HFA] 90 mcg/actuation HFA aerosol inhaler 2 puff inhalation Q6H PRN (Reason: wheezing) tramadol 50 mg tablet 50 mg feeding tube BID PRN (Reason: Pain (Scale Score 7-10)) Qty: 20 0RF Serostim 6 mg recon soln 6 mg subcut BEDTIME glycopyrrolate 1 mg tablet 1 mg PO TID clotrimazole 10 mg klaudia 10 mg PO TID cetirizine 10 mg tablet 10 mg feeding tube DAILY mirtazapine 45 mg tablet 45 mg feeding tube BEDTIME montelukast 10 mg tablet 10 mg PO DAILY albuterol sulfate 2.5 mg /3 mL (0.083 %) solution for nebulization 2.5 mg inhalation Q4H PRN (Reason: shortness of breath or wheezing) acetaminophen 500 mg Tablet 500 mg feeding tube BID PRN (Reason: Fever Or Pain) clonazepam 1 mg tablet 1 mg feeding tube DAILY ascorbic acid (vitamin C) 250 mg tablet 250 mg feeding tube DAILY megestrol 625 mg/5 mL (125 mg/mL) suspension 5 ml feeding tube DAILY brimonidine-timolol [Combigan] 0.2-0.5 % drops 1 drp ophthalmic (eye) BID Rocklatan 0.02-0.005 % drops 1 drp ophthalmic (eye) BEDTIME Discharge Orders: Discharge Order (Routine); Ordered 04/27/25 Ordered By: Shawn Adorno Diet: Advance to usual diet Activity on Discharge: As tolerated Stand Alone Forms: Patient Portal Discharge page Print Language: Thai Care Plan Goals: recovery Health Concerns: aspriation, pe Plan of Treatment: 5 days augmentin, eliquis, follow up pending labs Assessment: see above
--- NOTE | 2025-04-27 10:44 | MHC.CM.PN ---
Patient medically cleared for dc home w/ resumption of family support, [employer] and [facility] services. [facility] aware of dc. [employer] will transport. RN aware.
--- NOTE | 2025-04-27 11:11 | MHC.CLN ---
F/U SCHEDULED FOR DISCHARGE TO HOME TODAY. PATIENT IS NPO WITH NUTRITION/HYDRATION VIA PEG. TOLERATING TUBE FEEDING AT MAX GOAL RATE. JEVITY 1.0 AT MAX GOAL RATE 65 ML/HOUR CONTINUOUS, FREE WATER FLUSH 120 ML Q 4 HOURS. PROVIDES 1654 KCALS (25.4 KCALS/KG CMW), 69 G PROTEIN (1.1 G/KG CMW), 2023 ML TOTAL FREE WATER FROM FORMULA AND FLUSHES (31.1 ML/KG CMW). START TUBE FEEDING AT 20 ML PER HOUR, INCREASE BY 10 ML EVERY 4 HOURS TO MAX GOAL RATE 65 ML PER HOUR. MAY USE JEVITY 1.2. RECOMMEND JEVITY 1.2 AT 60 ML PER HOUR, FREE WATER FLUSHES 120 ML Q 4 HOURS. PROVIDES 1728 KCALS (26.6 KCALS/KG CMW), 80 G PROTEIN (1.2 G/KG CMW), 1882 ML TOTAL FREE WATER FROM FORMULA AND FLUSHES (29 ML/KG CMW). MONITOR TF TOLERANCE.
[2025-04-28 17:39] LABS: Absolute CD3 Count 2267 cells/uL (840-3060); Absolute CD8 Count 1571 cells/uL (180-1170); Percent CD3 Cells 82 % (57-85); Percent CD8 Cells 57 % (12-42)
[2025-04-29 20:07] LABS: Acetylcholine Recept. Blocking <15 (<15)
== END 2025-04-27 13:21 | disposition home health service (06) | DRG 177 ==
LOC: HO.ED 16:25 → HO.EDOVER 16:41 → HO.S3 23:56
PROVIDERS: Admitting Provider Internal Medicine; Emergency Provider Emergency Medicine Emergency Medical Services; PCP Student in an Organized Health Care Education/Training Program; Visit Provider Internal Medicine
DX: J69.0 Pneumonitis due to inhalation of food and vomit (principal); J96.01 Acute respiratory failure with hypoxia; I27.82 Chronic pulmonary embolism; R04.2 Hemoptysis; Z21 Asymptomatic human immunodeficiency virus [HIV] infection status; Z20.822 Contact with and (suspected) exposure to COVID-19; R13.10 Dysphagia, unspecified; Z93.1 Gastrostomy status; Z99.81 Dependence on supplemental oxygen; Z87.891 Personal history of nicotine dependence; Z79.01 Long term (current) use of anticoagulants; Z79.899 Other long term (current) drug therapy
CPT/HCPCS: 36415; 71275; 80048; 80053; 80307; 82271; 82550; 82803; 83605; 83690; 83735; 83880; 84443; 84484; 85025; 85027; 85379; 85610; 85652; 85730; 86041; 86042; 86043; 86140; 86359; 86360; 86481; 87040; 87116; 87206; 87536; 87564; 87637; 92610; 93005; 94640; 99285; J0456; J0692; J0696; J1271; J2270; J2543; J2919; Q9967

== ENCOUNTER → 2025-04-23 11:47 | Outpatient (BNV) | payer OTHER, SELFPAY | PROVIDERS: Admitting Provider Internal Medicine; Emergency Provider Emergency Medicine Emergency Medical Services; Visit Provider Internal Medicine Cardiovascular Disease | DX: I45.10 Unspecified right bundle-branch block (principal) | CPT/HCPCS: 93010 ==

== ENCOUNTER → 2025-04-23 11:48 | Outpatient (BNV) | payer OTHER, SELFPAY | PROVIDERS: Emergency Provider Emergency Medicine Emergency Medical Services; Visit Provider Radiology Body Imaging | DX: R04.2 Hemoptysis (principal) | CPT/HCPCS: 71275 ==

== ENCOUNTER 2025-04-23 16:27 | Outpatient (BNV) | payer OTHER, SELFPAY | END 2025-04-24 09:07 | PROVIDERS: Admitting Provider Internal Medicine; Emergency Provider Emergency Medicine Emergency Medical Services; Visit Provider Internal Medicine Cardiovascular Disease | DX: I45.10 Unspecified right bundle-branch block (principal) | CPT/HCPCS: 93010 ==

== ENCOUNTER → 2025-04-23 16:27 | Outpatient (BNV) | payer OTHER, SELFPAY | PROVIDERS: Admitting Provider Internal Medicine; Emergency Provider Emergency Medicine Emergency Medical Services; Visit Provider Internal Medicine | DX: R13.10 Dysphagia, unspecified (principal) | CPT/HCPCS: 99223; 99232; 99239 ==

== ENCOUNTER → 2025-04-23 16:27 | Outpatient (BNV) | payer OTHER, SELFPAY | PROVIDERS: Admitting Provider Internal Medicine; Emergency Provider Emergency Medicine Emergency Medical Services; Visit Provider Internal Medicine | DX: Z93.1 Gastrostomy status (principal); I27.82 Chronic pulmonary embolism; Z21 Asymptomatic human immunodeficiency virus [HIV] infection status; R13.10 Dysphagia, unspecified | CPT/HCPCS: 99232 ==

== ENCOUNTER 2025-05-07 09:30 | Outpatient (AMB) | payer OTHER, SELFPAY ==
--- OUTSIDE RECORDS SUMMARY | 2025-05-05 09:45 | XMS_ITS | Encounter Summary ---
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 * Consultation (Routine) - Authorized Specialty Diagnoses / Procedures Referred By Sam bowling Referred To Contact Podiatry / Orthopaedic Surgery Diagnoses Onychogryphosis Terese Rivera MD [address] [place] [address] Phone: tel: fax: Kb Benitez DPM [address] [address] Phone: tel: fax: Referral ID Status Reason Start Date Expiration Date Visits Requested Visits Authorized [id number] Authorized Specialty Services Required 02/23/2025 02/23/2026 1 1 Encounter Details Date Type Department Care Team ([facility] st Contact Info) Description 05/05/2025 9:45 AM EDT Consult Orthopedic Surgery - [address] [phone] Kb Benitez DPM [address] [place] [phone] Pain in toes of both feet (Primary Dx); Arthritis of both feet; Metatarsalgia of right foot; Onychogryphosis; Dermatophytosis, nail Social History Tobacco Use Types Packs/Day Years Used Date Smoking Tobacco: Never Alcohol Use Standard Drinks/Week Comments No 0 (1 standard drink = 0.6 oz pur e alcohol) Sex and Gender Information Value Date Recorded Sex Assigned at Not on file Legal Sex Male 7:55 AM EST Gender Identity Not on file Sexual Orientation Not on file documented as of this encounter Progress Notes * Kb Benitez DPM - 05/05/2025 9:45 AM EDT Referring MD: Terese Rivera* Last PCP visit: 04/13/2025 IDENTIFIER: Juan David is a 60 y.o. year old male who presents for consultation. CC: Bilateral foot pain HPI: 60-year-old male presents office chief complaint of bilateral foot pain. Patient notes he continuesto have some difficulty in ambulation secondary to thickened use of the nails. Patient notes that he has been having some increased pain to the lateral portion of the foot and some notable callus formations. Patient is here for evaluation and treatment ROS: GENERAL: Pt denies nausea, fever, vomiting, chills, or shortness of breath. Pt in NAD. CARDIOLOGY: pt denies chest pain, palpitations LUNGS: pt denies shortness of breath MUSCULOSKELETAL: See HPI, otherwise no joint pain or swelling, back pain, or muscle pain. SKIN: see HPI, otherwise no lesions, rash or itching NEURO: No persistent headache, weakness or numbness The remainder of the review of systems is noncontributory PAST MEDICAL HISTORY: There is no problem list on file for this patient. SOCIAL HISTORY: Social History Tobacco Use Smoking status: Never Smokeless tobacco: Not on file Substance Use Topics Alcohol use: No ACTIVE MEDICATIONS: No outpatient medications have been marked as taking for the 05/05/25 encounter (Consult) with Kb Benitez DPM. ALLERGIES: Acetaminophen, Acetaminophen-codeine, Codeine, Cortisone, Doxycycline, Ibuprofen, Levofloxacin, Metoclopramide, Oxycodone-acetaminophen, Penicillins, Regain, Sulfamethoxazole-trimethoprim, and Tramadol PHYSICAL EXAM: There were no vitals taken for this visit. PODIATRIC EXAMINATION: GENERAL: Patient appears well nourished, with NAD. VASCULAR: Dorsalis pedis pulses are 2/4 bilaterally and Posterior tibial pulses are 2/4 bilaterally. Capillary filling time within normal limits the digits. No pallor on elevation or rubor on dependency. Positive hair growth. No varicosities. Denies rest pain or claudication pain. NEUROLOGICAL: Sharp/dull sensation intact, protective sensation intact on [place] ORTHOPEDIC: Good muscle strength 5/5 of all flexors and extensors. Dorsi flexion of ankle ,10 degrees, plantar flexion WNL. No muscle atrophy. Increased load of the lateral column of the fifth bilateral feet with increased callus formations pain on palpation submetatarsal 5 position. DERMATOLOGICAL:.No masses or skin lesions noted. Normal skin temperature, normal skin turgor. Nailsare elongated dystrophic discolored x 10 with subungual debris BIOMECHANICS: STJ ROM wnl, MTJ ROM wnl, 1st MPJ ROM wnl. IMPRESSION: 1. Pain in toes of both feet 2. Arthritis of both feet 3. Metatarsalgia of right foot 4. Onychogryphosis 5. Dermatophytosis, nail PLAN: Pt was seen and examined, history reviewed. Patient was educated on metatarsalgia and the concepts pain in forefoot. Patient encouraged to use an offloading pad daily in order to limit pressure type pain to the area Patient has rigid contractures of hammertoes. Was encouraged to use an offloading hammertoe pads inorder to decrease preulcerative lesions to the distal clark Patient with symptoms of arthritic changes in the pedal joints. Patient showed good understanding of etiology of arthritis. Patient is aware that conservative options include padding, over the counter products, orthotics, and shoes. Patient aware that they are other treatments available such as oral anti- inflammatories, injections, and steroid dose packs. Patient understands that these measures are conservative measures to help handle the osteoarthritic flares. Nail debridement performed to nails 1-5 bilateral as nails were described to be causing pain and difficulty for walking while in shoegear at their previous length. They were debrided in thickness andlength, with no incident. Clinical evidence of mycosis is documented which required active treatment. Patient expressed immediate relief. Patient is to RTC in 9 weeks Kb Benitez DPM documented in this encounter Plan of Treatment Upcoming Encounters Date Type Department Care Team (Late st Contact Info) Description 07/07/2025 10:15 AM EDT Office Visit Orthopedic Surgery - [address] [phone] Kb Benitez DPM [address] [place] [phone] documented as of this encounter Visit Diagnoses Diagnosis Pain in toes of both feet- Primary Arthritis of both feet Metatarsalgia of right foot Onychogryphosis Other specified disease of nail Dermatophytosis, nail Dermatophytosis of nail documented in this encounter Orders Outpatient Referral Count Last Ordered Date Fir st Ordered Date AMB REFERRAL TO PODIATRY 1 05/05/2025 documented in this encounter Care Teams 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
--- NOTE | 2025-05-07 09:31 | A.OFFVIS_ITS ---
Vital Signs 3 05/07/25 09:32 Height 5 ft 6 in Weight 142 lb 6.698 oz BMI 23.0 BP 116/80 Blood Pressure Location Lt brachial Position Sitting Pulse 92 Pulse Source Pulse Oximeter Pulse Oximetry (%) 94 Oxygen Delivery Method Room Air Intake Visit Reasons: Adrenal hyperplasia/osteoporosis Intake Note: Patient present today for Adrenal hyperplasia and osteoporosis office visit. Coin Purse Assembler Required: Yes Coin Purse Assembler Language: Director Of Employee Development Services: Coin Purse Assembler Offered & Declined Accompanied by: ENGINEERING SPECIALIST TECHNICIAN Allergies Seasonal Allergies Allergy (Intermediate, Verified 05/07/25 09:35) Eye Drainage codeine (From Tylenol-Codeine #3) Allergy (Mild, Verified 05/07/25 09:35) Rash levofloxacin (From Levaquin) Allergy (Mild, Verified 05/07/25 09:35) Rash metoclopramide (From Reglan) Allergy (Mild, Verified 05/07/25 09:35) Rash acetaminophen (Tylenol-Codeine #3) Allergy (Unknown, Verified 05/07/25 09:35) Rash Penicillins (PENICILLINS) Allergy (Unknown, Verified 05/07/25 09:35) Rash ibuprofen (From Motrin) Adverse Reaction (Unknown, Verified 05/07/25 09:35) Reflux Medication List - Last Reconciled 05/07/25 by Ritu Scott MD acetaminophen 500 mg feeding tube BID PRN albuterol sulfate 90 mcg/actuation (Ventolin HFA) 2 puffs inhalation Q6H PRN albuterol sulfate 2.5 mg inhalation Q4H PRN amoxicillin-pot clavulanate 400-57 mg/5 mL 10 mL PO BID apixaban (Eliquis) 5 mg G-tube BID ascorbic acid (vitamin C) 250 mg feeding tube DAILY dleectioe-ecusdoza-txydwcv ala 50-200-25 mg (Biktarvy) 1 tab PO DAILY brimonidine-timolol 0.2-0.5 % (Combigan) 1 drp ophthalmic (eye) BID budesonide 0.25 mg (2 mL) inhalation BID 90 days calcium carbonate-vitamin D3 600 mg-20 mcg (800 unit) 1 tab feeding tube BID@1200,1800 cetirizine 10 mg feeding tube DAILY clonazepam 1 mg feeding tube DAILY clotrimazole 10 mg PO TID ferrous gluconate 324 mg feeding tube BID glycopyrrolate 1 mg PO TID megestrol 5 mL feeding tube DAILY mirtazapine 45 mg feeding tube BEDTIME montelukast 10 mg PO DAILY netarsudil-latanoprost 0.02-0.005 % (Rocklatan) 1 drp ophthalmic (eye) BEDTIME omeprazole 10 mg feeding tube DAILY@0630 PRN risperidone 3 mg feeding tube BEDTIME somatropin (Serostim) 6 mg subcut BEDTIME tamsulosin 0.4 mg PO BEDTIME tramadol 50 mg feeding tube BID PRN HPI Comments Details: 59-year-old male with past medical history significant for HIV, hepatitis-C, seizure disorder, hypertension, prediabetes, anxiety/depression, asthma, history of left lung empyema status post drainage, chronic respiratory failure and recurrent aspiration pneumonia, parkinsonism, cardiomyopathy coming in today for follow up for male hypogonadism, adrenal hyperplasia and osteoporosis. Here today with ENGINEERING SPECIALIST TECHNICIAN. Osteoporosis DEXA scan February 2023 baseline showed osteoporosis with a lumbar spine T-score - 4.5 with L2 as low as -5.1 , -2.1 in total femur and -2.7 left femoral neck Osteoporosis new pt evaluation osteoporosis: Diagnosed in February 2023 Fracture History: None Height loss: patient says he used to be 5 ' 6 before Back pain: reports B/L lower back pain , intermittent , started 2 weeks ago Pharmacotherapeutic hx: None Drug holiday None Family history: mother had osteoporosis , no parent fractured hip Secondary risk factors: Steroid use: has required intermittent steroids for pneumonia Hyperthyroidism: Neg Seizure medication use: has history of seizure medication use Chemo or Radiation use: Neg Heparin Use: Neg History of eating disorder: yes on PEG tube due to dysphagia for 1 year group home immobilization: Negative History of kidney stones or disease:Yes Ct abd 03/03 Kidneys and Ureters: Multiple bilateral nonobstructive renal calculi measuring up to 3 mm. No hydronephrosis. No perinephric fat stranding. has had 2 hospitalizations PI Use: Yes Chronic inflammatory lung disease: Yes Chronic inflammatory bowel disease: Negative Daily calcium intake: milk three cups a day, no cheese or yogurt , through PEG tube 600 mg BID calcium Vitamin D intake: through PEG tube 800 units BID vitamin D Exercise:not active Smoking history:never smoker Dental: Has regular dental cleaning, no issues has appointment in Oct 2024 Labs from 10/01/2024, showed normal kidney function with a EGFR greater than 60, calcium of 9.7 with albumin of 4.1, corrected calcium would be 9.6, ionized calcium 5.4, normal phosphorus 3.6, normal PTH, of 36.3, vitamin-D level of 44. Labs from August 2024 showed CTX elevated at 552, bone specific alkaline phosphatase low at 8.5. All of this points towards hi bone resorption. Normal 24 hour urine calcium levels of 219 from August 2024. Interval history 10/28/2024: Started on Evenity monthly injections, received 7 injections so far, no problems , 8 the injection due May 2025 No fractures Daily calcium intake: milk three cups a day, no cheese or yogurt , through PEG tube 600 mg BID calcium Vitamin D intake: through PEG tube 800 units BID vitamin D Exercise:not active Low cortisol levels Adrenal hyperplasia CT chest abdomen pelvis February 2024 showed mild asymmetric fullness of the left adrenal gland which is unchanged. CT abdomen 01/03/2023: Showed stable fullness of both adrenal glands. 05/01/2021: Also commented on left adrenal gland is thickened without any discrete mass, right adrenal gland unremarkable Lab workup done March 2023 showed aldosterone of 3, renin activity of 0.5, random cortisol of 8.2, no ACTH level done at that time, mildly elevated plasma free metanephrine of 63 and mildly elevated plasma free normetanephrine of 162, normal 24 hour urine free metanephrine and normetanephrine levels from 04/06/2023. No fractures, has osteoporosis which is severe as noted above. Has well-controlled blood pressure, only on amlodipine. No history of diabetes mellitus. No easy bruising, no proximal muscle weakness he does not have problems with the obesity, if anything he has had failure to thrive due to dysphagia, now better with PEG tube. Incidentally we did note low baseline cortisol levels in August 2024When his cortisol levels are noted to be around 2.6 from 10:00 and 2.7. Repeat labs at 08:00 showed random cortisol of 4.4, free cortisol of 0.20. His baseline cortisol levels are on the lower side. Acth is anywhere from 9-11. He is on megestrol, this can suppress pituitary adrenal axis leading to secondary adrenal insufficiency. He does not have any symptoms of nausea, vomiting, lightheadedness, dizziness. Blood pressure is normal. MRI brain from March 2024 was normal which commented on a normal pituitary gland. However given that he is at risk of developing secondary adrenal insufficiency, I would like to perform, cosyntropin stimulation test. Because we were doing secondary workup for osteoporosis we also got a 24 hour urine cortisol for him which was normal, so at this time suspicion for [place]'s or hypercortisolism is actually low. 10/01/2024: Normal cosyntropin stimulation test Failed to do dexamethasone suppression test again Interval history No fractures, weight remained stable, blood pressure within good range Male hypogonadism Blood work from August 2024 showed low free testosterone of 23.1 and low bioavailable testosterone of 46.5. SHBG 55. Normal total testosterone of 282. These labs were done at 10:00. Repeat labs done in September 2024 at 08:00 again showed low free testosterone of 30.2 and low bioavailable testosterone of 6.9. SH pg 36, testosterone total 254. FSH and LH were inappropriately normal from August 2024. 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 He denies any history of radiation or trauma to his head . MRI of the pituitary from March 2024 was also unremarkable. No pituitary tumor noted. Has a history of HIV and these patients can have hypogonadism and need testosterone replacement for overall wellness. Low hematocrit level also consistent with low testosterone levels. Total testosterone levels are falsely elevated in these patients usually due to high SHBG levels. He is also seeing he has not had any erections for the past 5 years or so. He is not sexually active. 11/26/2024: Again noted to have low free and bioavailable testosterone, normal total testosterone levels Interval history Evaluated by Urology, retroperitoneum ultrasound did not show any major concerns, normal PSA levels They did start him on Cialis in March 2025 to see if testosterone levels improve within the next 3-6 months Physical exam General: sitting comfortably in no acute distress HEENT: normocephalic/atraumatic Neck: supple, symmetrical, no thyromegaly Cardiac: normal heart sounds Pulm: normal breath sounds B/L, no added breath sounds Abd: not distended, no tenderness, PEG tube noted Extremities: no edema, no signs of myxedema Laboratory Tests 01/04/23 04/04/23 04/06/23 05:08 09:39 06:00 Sodium Potassium 2.9 L D Creatinine Estimated GFR Calcium Phosphorus Magnesium Albumin Renin Activity 0.55 Aldosterone 3 Aldosterone/Renin Ratio 5.5 PTH Intact 30 Random Cortisol 8.2 Plasma Free Metaneph 63 H Plasma Free Normeta 162 H Plas Total Metaneph 225 H U Free Metanephrine 160 U Normetanephrine 24h 310 U Tot Metanephrine 24h 470 03/15/24 03/17/24 03/18/24 12:51 05:54 05:54 Sodium Potassium Creatinine Estimated GFR Calcium 8.0 L 8.5 D Phosphorus 2.6 L Magnesium Albumin Renin Activity Aldosterone Aldosterone/Renin Ratio PTH Intact Random Cortisol Plasma Free Metaneph Plasma Free Normeta Plas Total Metaneph U Free Metanephrine U Normetanephrine 24h U Tot Metanephrine 24h 05/07/24 07/15/24 04:06 12:26 Sodium 145 Potassium 3.8 Creatinine 0.88 Estimated GFR > 60 Calcium 10.1 D 10.2 Phosphorus Magnesium 2.3 Albumin 3.9 Renin Activity Aldosterone Aldosterone/Renin Ratio PTH Intact Random Cortisol Plasma Free Metaneph Plasma Free Normeta Plas Total Metaneph U Free Metanephrine U Normetanephrine 24h U Tot Metanephrine 24h Laboratory Tests 07/15/24 09/08/24 09/08/24 12:26 08:00 10:00 Hgb 13.5 L Hct 41.3 L Creatinine 0.92 Estimated GFR > 60 Calcium 10.2 Ionized Calcium 5.6 H Phosphorus 3.6 Alk Phos Bone Specific 8.5 Collgn I C-Telopeptide 552 H 25-OH Vitamin D Total 65.5 1,25 Dihydroxy Vit D TSH 0.68 FSH 6.9 Luteinizing Hormone 3.4 Testosterone Level 282 Free Testoster w SHBG 23.1 L Bioavail Testosterone 46.5 L Sex Hormone Bind Glob 55 DHEA Sulfate 65 PTH Intact 25.0 Random Cortisol 2.6 Free Cortisol ACTH 9 Urine Total Volume 2125 Ur 24 Hour Volume 2125 Ur Creatinine 24 Hour 1.24 Ur Sodium 24 Hour 119.0 Ur Calcium 24 Hr 219 Calcium/Creat 24 Hr 178 Ur Free Cortisol 24 Hr 35.1 09/15/24 09/16/24 10/01/24 10:36 09:58 08:16 Hgb Hct Creatinine 0.80 Estimated GFR > 60 Calcium 9.7 Ionized Calcium 5.4 Phosphorus 3.6 Alk Phos Bone Specific Collgn I C-Telopeptide 25-OH Vitamin D Total 44 1,25 Dihydroxy Vit D 24 TSH FSH Luteinizing Hormone Testosterone Level 254 Free Testoster w SHBG 30.2 L Bioavail Testosterone 56.9 L Sex Hormone Bind Glob 36 DHEA Sulfate 41 PTH Intact 36.3 Random Cortisol 2.7 4.4 Free Cortisol 0.20 ACTH 9 11 Urine Total Volume Ur 24 Hour Volume Ur Creatinine 24 Hour Ur Sodium 24 Hour Ur Calcium 24 Hr Calcium/Creat 24 Hr Ur Free Cortisol 24 Hr Laboratory Tests 10/01/24 11/05/24 11/21/24 08:16 07:41 11:51 Hgb 14.7 Hct 42.2 Creatinine Estimated GFR Calcium Iron TIBC % Saturation Unsat Iron Binding Albumin Total PSA 25-OH Vitamin D Total 44 1,25 Dihydroxy Vit D 24 FSH Luteinizing Hormone Testosterone Level 254 Free Testoster w SHBG 30.2 L Bioavail Testosterone 56.9 L Sex Hormone Bind Glob 36 DHEA Sulfate 41 PTH Intact 36.3 PTH Related Protein 23 H Random Cortisol 4.4 Free Cortisol 0.20 Cortisol Baseline 36.4 Cortisol 30 Minute 12.9 L Cortisol 60 Minute 39.4 ACTH 17-Hydroxyprogesterone Dexamethasone 11/26/24 11/28/24 12/02/24 07:36 10:13 08:04 Hgb Hct Creatinine 0.80 Estimated GFR > 60 Calcium 9.5 Iron 133 TIBC 370 % Saturation 36 Unsat Iron Binding 237 Albumin 4.1 Total PSA 0.41 25-OH Vitamin D Total 1,25 Dihydroxy Vit D FSH 8.4 Luteinizing Hormone 5.1 Testosterone Level 317 Free Testoster w SHBG 44.2 L Bioavail Testosterone 83.2 L Sex Hormone Bind Glob 30.5 DHEA Sulfate 38 PTH Intact PTH Related Protein Random Cortisol 14.6 4.7 Free Cortisol Cortisol Baseline Cortisol 30 Minute Cortisol 60 Minute ACTH 39 13 17-Hydroxyprogesterone 51 Dexamethasone 78 Imaging BONE DENSITOMETRY 03/07/23 CLINICAL INDICATION: Compression deformity of vertebra. COMPARISON: None (current study represents initial baseline exam). TECHNIQUE: Using a NeuroD[employer] DXA System (software version: 13.1) manufactured by [id number], dual-energy x-ray absorptiometry was performed of the lumbar spine and left hip. The images are of good technical quality. Summary results are attached. FINDINGS: LEFT FEMUR, NECK: BMD 0.716 g/cm2, Z-score -1.4, T-score -2.7, osteoporosis. LEFT FEMUR, TOTAL: BMD 0.801 g/cm2, Z-score -1.2, T-score -2.1, osteopenia. AP SPINE L1-L4: BMD 0.681 g/cm2, Z-score -3.5, T-score -4.5, osteoporosis. IDENTIFIED RISK FACTORS: Low calcium intake, history of fracture (adult). HISTORY OF FRACTURE: Ankle. MEDICATIONS: Multivitamin. MM/XR DEXA axial skeleton IMPRESSION: 1. DIAGNOSIS: Osteoporosis based on the lowest T-score value of -4.5 in the lumbar spine applying World Health Organization criteria. 2. 10-YEAR FRACTURE RISK PREDICTION, FRAX: According to the guidelines, FRAX calculation should only be performed on patients in the osteopenia bone density category. Therefore, FRAX was not performed on this patient. CT CHEST, ABDOMEN AND PELVIS WITHOUT CONTRAST. 02/15/24 CLINICAL INFORMATION: Chest pain, shortness of breath, left flank pain. COMPARISON: CT chest 01/10/2024. CT abdomen/pelvis 01/03/2023. TECHNIQUE: Multidetector volumetric imaging was performed from the thoracic inlet through the pubic symphysis without IV contrast. Sagittal and coronal reformatted images were obtained on the technologist's workstation. This CT examination was performed using dose optimization techniques as appropriate, variously including the following: *Automated exposure control *Adjustment of mA and/or kV according to patient size (this includes techniques or standardized protocols for targeted exams where dose is matched to indication/reason for exam; i.e. extremities or head) *Use of iterative reconstruction technique DLP: 418 mGy-cm FINDINGS: Limited noncontrast examination. CHEST: Lung: Evaluation is limited due to respiratory motion. No dense consolidation. Dependent subsegmental atelectasis and/or scarring. Layering intraluminal secretions are noted in the upper trachea, ciro and left mainstem bronchi. Focal mild bronchiectasis and architectural distortion in the superior aspect of the right lower lobe (7:156). Minimal groundglass attenuation of the lung parenchyma in the right apex (7:53). Few bilateral up to 3 mm solid pulmonary nodules, for instance in the right lower lobe images 256 and 228 series 7. Very subtle focal groundglass nodule in the right lower lobe measuring 8 mm image 178 series 7. Mediastinum: Cardiomegaly. No pericardial effusion. No mediastinal lymphadenopathy. Evaluation of the hilar structures is limited in the absence of IV contrast. Normal appearance of the thyroid gland. Pleura: No pleural effusion. No pneumothorax. Chest Wall/Axilla: No lymphadenopathy by size criteria. Osseous structures: Stable multilevel vertebral body height loss. Thoracic spondylosis. Unchanged deformities of the left seventh and eighth ribs with overlying metallic densities along the posterior aspect of these ribs. No acute osseous findings. ABDOMEN/PELVIS: Peritoneal Space: No free air or free fluid. Liver, Gallbladder, Biliary Tree: The liver is normal in size, shape, and attenuation. No focal hepatic lesion or biliary ductal dilatation is present. The gallbladder is unremarkable with no evidence of radiopaque gallstones, gallbladder wall thickening, or obvious pericholecystic inflammatory changes. Pancreas: Unremarkable. Spleen: Unremarkable. Adrenal Glands: Mild asymmetric fullness of the left adrenal gland is unchanged. Kidneys and Ureters: Multiple bilateral nonobstructive renal calculi measuring up to 3 mm. No hydronephrosis. No perinephric fat stranding. Bladder: Punctate calcification abutting the left posterior bladder wall (11:65). Gastrointestinal Tract: Gastrostomy tube. The stomach and the small bowel are nondilated. Normal appendix. Mild colonic diverticulosis without pericolonic inflammatory changes. No evidence of bowel obstruction. Abdominal Wall: No significant hernia is appreciated. Lymphovascular Structures: No lymphadenopathy by size criteria. Normal caliber abdominal aorta. Pelvic Viscera: Unremarkable. Osseous Structures: No acute osseous findings. CT/CT abdomen pelvis wo IV con IMPRESSION: 1. No focal consolidation or significant groundglass disease. Intraluminal secretions in the trachea and left mainstem bronchi that could be related with mucous secretions or aspirated material and that could predispose to aspiration. 2. Few bilateral groundglass and solid pulmonary nodules measuring up to 8 mm. Following Fleischner guidelines, follow-up CT chest in 3-6 months is recommended. 3. Nonobstructive bilateral renal calculi. 4. Punctate calcification abutting the left posterior bladder wall that could be related with a recently passed stone. Recommend attention on follow-up in future examinations to ensure the absence of underlying mural lesions. 5. Diverticulosis but no evidence of acute diverticulitis. CT ABDOMEN AND PELVIS WITHOUT CONTRAST 12/17/20 CLINICAL INFORMATION: Abdominal pain. No bowel movement in 5 days. Nausea. COMPARISON: CT abdomen and pelvis noncontrast 04/03/2020 TECHNIQUE: Multidetector volumetric imaging was performed from the superior aspect of the liver through the pubic symphysis. Sagittal and coronal reformatted images were obtained on the technologist's workstation. This CT examination was performed using dose optimization techniques as appropriate, variously including the following: *Automated exposure control *Adjustment of mA and/or kV according to patient size (this includes techniques or standardized protocols for targeted exams where dose is matched to indication/reason for exam; i.e. extremities or head) *Use of iterative reconstruction technique DLP: 347 mGy-cm FINDINGS: LUNG BASES: The visualized lung bases are unremarkable. LIVER, GALLBLADDER, AND BILIARY TREE: The liver is normal in size and smooth in contour. There is mild hepatic steatosis. No focal hepatic parenchymal lesion or intrahepatic ductal dilatation. The gallbladder is unremarkable with no evidence of radiopaque gallstones, gallbladder wall thickening, or obvious pericholecystic inflammatory changes. PANCREAS: Mildly atrophic. No duct dilatation or retroperitoneal inflammatory changes. SPLEEN: Normal in size. Small splenule again seen left upper quadrant, 1 cm. ADRENAL GLANDS: Mild fullness left adrenal stable. Right adrenal unremarkable. KIDNEYS AND URETERS: The kidneys are normal in size and smooth in contour and show no hydronephrosis. There is no hydroureter or perinephric stranding. Again, multiple small nonobstructing intrarenal calculi are present under 5 mm. No ureteral calculi. BLADDER: Unremarkable. GASTROINTESTINAL TRACT: There is moderate stool throughout the colon. There is no small or large bowel dilatation or focal inflammatory changes in the bowel or mesentery. No rectal fecal impaction. The appendix is not demonstrated with certainty and not visible on prior CT 2019 as well. There are no inflammatory changes around the terminal ileum or cecum. No ascites or fluid collection. ABDOMINAL WALL: No significant hernia is appreciated. LYMPH NODES: No lymphadenopathy. VASCULAR: Unremarkable. PELVIC VISCERA: Unremarkable. OSSEOUS STRUCTURES: Unremarkable. CT/CT abdomen pelvis wo con IMPRESSION: 1. Moderate stool throughout colon consistent with clinical history. No bowel obstruction or focal inflammatory changes. 2. Bilateral small nonobstructing renal calculi similar to prior CT 2019. No hydronephrosis or perinephric stranding. MR BRAIN WITHOUT AND WITH CONTRAST 03/17/24 CLINICAL INFORMATION: Generalized weakness. Leukoencephalopathy. COMPARISON: CT head from 03/07/2024. Brain MRI from 10/26/2023. TECHNIQUE: MRI of the brain was obtained using routine sequences without and following the administration of 5 mL of Gadavist intravenous contrast. FINDINGS: No focal restricted diffusion is demonstrated to suggest acute or subacute cerebral ischemia. No evidence of acute or chronic hemorrhagic products on heme-sensitive imaging. Scattered and partially confluent periventricular, deep white matter, and brainstem T2 FLAIR hyperintensities most commonly seen with mild to moderate underlying microangiopathy. Proportional prominence of the ventricles and sulcal spaces without evidence of obstructive hydrocephalus. No abnormal mass effect. No midline shift. Normal appearance of the pituitary gland. Normal positioning of the cerebellar tonsils. Normal arterial and venous vascular flow voids are present. No abnormal contrast enhancement. Normal, homogeneous marrow signal. Mucus retention cyst within the left maxillary sinus. Mild mucosal thickening of the remaining paranasal sinuses. No signal abnormalities within the mastoids. MR/MR head/brain wo/w con IMPRESSION: 1. No acute intracranial abnormalities. No abnormal intracranial enhancement. 2. Mild to moderate chronic white matter changes and generalized cerebral volume loss most commonly seen with microangiopathy. [facility] Medical History Fibromyalgia Hepatitis C virus infection without hepatic coma Myalgia History of pulmonary embolism Lower urinary tract symptoms Hypogonadism in male Low serum cortisol level Adrenal hyperplasia Osteoporosis Height loss HIV (human immunodeficiency virus infection) Asthma Dysphagia Adult failure to thrive Adult failure to thrive Multiple rib fractures History of empyema of pleura (01/05/23) Hypertension Closed fracture of leg Hepatitis C Kidney stones Pleuritic chest pain Pneumonia Substance abuse Hemorrhoids Depression HIV (human immunodeficiency virus infection) Asthma Surgical History H/O hemorrhoidectomy Family History Maternal Grandmother Lung cancer Maternal Aunt Lung cancer Mother Lung cancer Social History Household Members: None Household Members Other:: lives alone Housing: Apartment Do you presently have visiting nurse or other home services: Yes (reports daily visiting nurses) Alcohol intake: never Patient Tobacco Use Status: Former Tobacco user Tobacco use type: Cigarette e-Cigarette/Vaping Use: Never Used Second Hand Smoke Exposure: No Substance Use Type: Crack/Cocaine Advance Directives Date on File: 04/25/21 service: No Current occupational status: disabled Current occupation: [employer] Gender identity: Male Physical Exam Vital Signs: Last Vital Signs Pulse 92 05/07/25 09:32 BP 116/80 05/07/25 09:32 Pulse Ox 94 05/07/25 09:32 Oxygen Delivery Method Room Air 05/07/25 09:32 BMI result Body Mass Index 23.0 Assessment & Plan Assessment & Plan (1) Osteoporosis: Code(s): M81.0 - Age-related osteoporosis without current pathological fracture Category: Medical Qualifiers: Osteoporosis type: age-related Presence of current pathological fracture: without current pathological fracture Qualified Code(s): M81.0 - Age- related osteoporosis without current pathological fracture Plan: 59-year-old male with past medical history significant for HIV, hepatitis-C, seizure disorder, hypertension, prediabetes, anxiety/depression, asthma, history of left lung empyema status post drainage, chronic respiratory failure and recurrent aspiration pneumonia, parkinsonism, cardiomyopathy coming in today to establish care for adrenal hyperplasia and osteoporosis. Osteoporosis was diagnosed on bone density scan in February 2023 which showed severe osteoporosis in the lumbar spine with T-score of-4.5 with L4 as low as-5.1. He also has osteoporosis at the left femoral neck with T-score of -2.7. Patients who have so much discordance in between bone densities in the spine and hip are also at higher risk of fracture compared to those who do not. Plus given his T- scores, he is at severe risk of fractures given his bone fragility. Has risk factors are HIV, history of hepatitis-C, history of seizure disorder with the use of medications in the past, chronic PPI use, malnutrition, chronic respiratory failure. I discussed conservative measures including adequate calcium intake, adequate vitamin D levels as well as the role of weightbearing exercises in general being good for bone health. Vitamin-D levels, he i from August 2000 12/29/2047 is appropriates to continue taking says 100 mg of calcium and 800 units of vitamin- D b.i.d. through his PEG tube as he is taking. Labs from 10/01/2024, showed normal kidney function with a EGFR greater than 60, calcium of 9.7 with albumin of 4.1, corrected calcium would be 9.6, ionized calcium 5.4, normal phosphorus 3.6, normal PTH, of 36.3, vitamin-D level of 44. Labs from August 2024 showed CTX elevated at 552, bone specific alkaline phosphatase low at 8.5. All of this points towards hi bone resorption. Normal 24 hour urine calcium levels of 219 from August 2024. Started Evenity 210 mg monthly injection on 10/28/2024. Has had 7 injections so far, 8 th injection due May 2025. Today we discussed that after he is done with the Evenity in September 2025, we will plan to give him a Reclast infusion. At this point I will see him back in October and that is when we will order the Reclast. Plan: -continue Evenity 210 mg (105 mg X 2) injection monthly to complete a 12 month course (started 10/28/2024), we will plan to transition to give Reclast infusion after -at his follow up in October 2025, we will order Reclast infusion -ordered calcium, albumin, vitamin-D, creatinine, phosphorus, bone specific alkaline phosphatase, CTX level to be done prior to next follow up in October 2025 -continue vitamin-D 800 units b.i.d. -continue calcium intake milk 3 cups a day through PEG tube in 600 mg b.i.d. of calcium supplement -stressed importance of walking and weight-bearing exercise e. -we will plan to repeat a bone density scan in November 2025 once he is done with evenity , I will order this at his follow up in October 2025 (2) Adrenal hyperplasia: Code(s): E27.8 - Other specified disorders of adrenal gland Category: Medical Plan: 59-year-old male who is noted to have adrenal hyperplasia at least since [address] scan of the abdomen revealed fullness of the left adrenal gland, subsequent CT scans, most recently done in February 2024 again showed mild asymmetric fullness of the left adrenal gland. I reviewed the images myself the right adrenal gland is also slightly more thickened than normal. The left 1 definitely he is much more full, no discrete mass identified. He has had functional Lab workup done March 2023 showed aldosterone of 3, renin activity of 0.5, random cortisol of 8.2, no ACTH level done at that time, mildly elevated plasma free metanephrine of 63 and mildly elevated plasma free normetanephrine of 162, normal 24 hour urine free metanephrine and normetanephrine levels from 04/06/2023. Lab workup clearly ruled out primary hyperaldosteronism as well as no concern for pheochromocytoma. Mild elevations in plasma metanephrine normetanephrine scan be seen in many other conditions/interference from medications. This is not significant elevation to be concerned about pheochromocytoma. Given that he does have osteoporosis, we had plan to do a dexamethasone suppression test however he could not perform it because he did not show up on time. Incidentally we did note low baseline cortisol levels in August 2024When his cortisol levels are noted to be around 2.6 from 10:00 and 2.7. Repeat labs at 08:00 showed random cortisol of 4.4, free cortisol of 0.20. His baseline cortisol levels are on the lower side. Acth is anywhere from 9-11. He is on megestrol, this can suppress pituitary adrenal axis leading to secondary adrenal insufficiency. He does not have any symptoms of nausea, vomiting, lightheadedness, dizziness. Blood pressure is normal. MRI brain from March 2024 was normal which commented on a normal pituitary gland. September 2024: Normal cosyntropin stimulation test. Normal 24 hour urine cortisol , so at this time suspicion for Luz Elena's or hypercortisolism is actually low. However I will do the 1 mg dexamethasone suppression test for the sake of completing workup. Given stability of the adrenal fullness since 2020, I am not concerned about malignancy, I am holding off on doing CT of the adrenal glands. He has not been able to successfully get the dexamethasone suppression test. At this time I am not pushing him to repeat the test overall does not have any cushingoid features such as abdominal striae, skin thinning, frequent bruising. We will continue to monitor him clinically. Seventeen hydroxyprogesterone was normal. Plus his 24 hour urine cortisol level was also normal which is reassuring. Plan: -continue to monitor clinically for features of hypercortisolism (3) Hypogonadism in male: Code(s): E29.1 - Testicular hypofunction Category: Medical Plan: Blood work from August 2024 showed low free testosterone of 23.1 and low bioavailable testosterone of 46.5. SHBG 55. Normal total testosterone of 282. These labs were done at 10:00. Repeat labs done in September 2024 at 08:00 again showed low free testosterone of 30.2 and low bioavailable testosterone of 6.9. SH BG 36, testosterone total 254. FSH and LH were inappropriately normal from August 2024. 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 He denies any history of radiation or trauma to his head . MRI of thebrain with commen on pituitary from March 2024 was also unremarkable. No pituitary tumor noted. Has a history of HIV and these patients can have hypogonadism and need testosterone replacement for overall wellness. Low hematocrit level also consistent with low testosterone levels. Total testosterone levels are falsely elevated in these patients usually due to high SHBG levels. He is not had any erections for the past 5 years or so. He is not sexually active. Pending repeat 08:00 testosterone levels. Normal PSA, iron panel from November 2024. He has lower urinary tract symptoms, Evaluated by Urology, retroperitoneum ultrasound did not show any major concerns, normal PSA levels They did start him on Cialis in March 2025 to see if testosterone levels improve within the next 3-6 months. When I see him back for his appointment in October 2025, I will see what his testosterone levels are like. At that time we can consider starting testosterone replacement therapy. He has never had a stroke or heart attack. However he does have a history of PE from June 2024. Sounds like was provoked due to long periods of immobilization in bed, he was on Eliquis up until December 2024 per patient but that has been now stopped. I discussed with him risks of testosterone replacement therapy, there is conflicting results regarding increased risk of thrombosis however erythrocytosis can put you at increased risk of thrombosis. I will have him repeat his hemoglobin and hematocrit levels prior to starting therapy. Plan: - follow up with Urology -we will consider starting testosterone replacement therapy in the near future -follow up in October 2025 with labs a week or 2 prior Plan I spent 30 minutes in reviewing the record, seeing the patient and documenting in the medical record. Orders: Orders 2 Albumin Level 10/12/25 E29.1 - Testicular hypofunction, M81.0 - Age-related osteoporosis without current pathological fracture Phosphorus 10/12/25 E29.1 - Testicular hypofunction, M81.0 - Age-related osteoporosis without current pathological fracture Bioavailable Testosterone 10/12/25 E29.1 - Testicular hypofunction, M81.0 - Age-related osteoporosis without current pathological fracture Sex Hormone Binding Globulin 10/12/25 E29.1 - Testicular hypofunction, M81.0 - Age-related osteoporosis without current pathological fracture Hematocrit 10/12/25 E29.1 - Testicular hypofunction, M81.0 - Age-related osteoporosis without current pathological fracture Calcium 10/12/25 E29.1 - Testicular hypofunction, M81.0 - Age-related osteoporosis without current pathological fracture Vitamin D 25-OH Total 10/12/25 E29.1 - Testicular hypofunction, M81.0 - Age- related osteoporosis without current pathological fracture Creatinine 10/12/25 E29.1 - Testicular hypofunction, M81.0 - Age-related osteoporosis without current pathological fracture Collagen Type I C-Telopeptide 10/12/25 E29.1 - Testicular hypofunction, M81.0 - Age-related osteoporosis without current pathological fracture Alkaline Phosphatase Bone 10/12/25 E29.1 - Testicular hypofunction, M81.0 - Age-related osteoporosis without current pathological fracture Testosterone, Free/Total 10/12/25 E29.1 - Testicular hypofunction, M81.0 - Age- related osteoporosis without current pathological fracture Hemoglobin 10/12/25 E29.1 - Testicular hypofunction Patient Instructions: Continue Evenity monthly injections to complete 12 injections in Sep 2025 We will plan to give you a reclast infusion when I see you back in Oct 2025 Regarding Reclast This is usually given as an IV infusion, once a year. Common side effects include fever, chills, flulike symptoms and muscle and joint aches and pains. This may happen up to 20% of the people. Other side effects may include low calcium level, especially if the vitamin D is low. Therefore do continue to take calcium and vitamin D as recommended by your doctor. We recommend that you are well-hydrated when you comes for the Reclast infusion. So please drink 16 ounces of water and do not take any diuretics on the day of the infusion. We also recommended to take 2 Tylenol before leaving home for the infusion. You may continue to take Tylenol every 6 hours as needed for the initial 1-2 days depending on the need. Please let us know should you have any side effects from reclast. We do recommend a regular dental follow-up for oral/dental health. DO FASTING BLOOD WORK, 2 weeks before next visit at 8 AM Coding Level of Care Code Est Pt Level 4 (67809) Diagnoses Age-related osteoporosis without current pathological fracture M81.0 Osteoporosis type: age-related Presence of current pathological fracture: without current pathological fracture Adrenal hyperplasia E27.8 Hypogonadism in male E29.1 Time Spent (min) 30
[2025-05-07 09:32] VITALS: BP 116/80; PULSE 92; O2SAT 94; BMI 23.0
--- OUTSIDE RECORDS SUMMARY | 2025-05-07 10:34 | XMS_ITS | Encounter Summary ---
Author Organization [facility] Address [address] [place] [address] Care Team Providers Care Manager Systems Name Role Phone Physician, Pcp Unknown Primary Care Provider Bina vailable Encounter Details Date Type Department Care Team ([facility] Contact Info) Description 03/10/2025 Lab Requisition [facility] [address] [facility] [place] [address] MD [address] [place], [place] [id number] Unspecified abnormal cytological findings in specimens from anus Social History Tobacco Use Types Packs/Day Years Used Date Smoking Tobacco: Never Alcohol Use Standard Drinks/Week Comments No 0 (1 standard drink = 0.6 oz pur e alcohol) Sex and Gender Information Value Date Recorded Sex Assigned at Not on file Legal Sex Male 7:55 AM EST Gender Identity Not on file Sexual Orientation Not on file documented as of this encounter Plan of Treatment Upcoming Encounters Date Type Department Care Team ([facility] Contact Info) Description 07/07/2025 10:15 AM EDT Office Visit Orthopedic Surgery - [place] [address] [facility] [address] [place] [phone] [address]itez DPM [address] [place] [address] documented as of this encounter Procedures Procedure Name Priority Date/Time Associated Diagnosis Comments THINPREP CYTOLOGY WITH HPV, ANAL Routine 03/09/2025 12:00 AM EDT Unspecified abnormal cytological findings in specimens from anus NON-GYNECOLOGIC CYTOLOGY Routine 03/09/2025 12:00 AM EDT Unspecified abnormal cytological findings in specimens from anus documented in this encounter Results * Thinprep cytology with HPV, anal (03/09/2025 12:00 AM EDT) Scan Result See Scanned Result 03/17/2025 2:21 PM EDT EXTERNAL LAB (NON-INTERFAC ED) Brushing/Spatula Anal structure / Unknown 03/09/2025 03/10/2025 10:[address] MD LAB PATHOLOGY ORDERABLES Final Result EXTERNAL LAB (NON-INTERFACED) * Non-gynecologic cytology (03/09/2025 12:00 AM EDT) Final Diagnosis Specimen sent to [facility] for Anal cytology with HPV CoTest. Their interpretation is as follows: Anal, Rectum (ThinPrep): Satisfactory for Evaluation. Transformation zone components absent. Negative for Intraepithelial Lesion or Malignancy. Disclaimer This test has been modified from the police lieutenant patrol's instructions. Its performance characteristics were determined by [facility] in a manner consistent with CLIA requirements. This test has not been cleared or approved by the U.S. Food and Drug Administration Report signed electronically by: Qi Lehman M.D. on 16 Mar 2025 at 13:55 at [facility], [address] [place] [address] (CLIA [id number]) HPV Anal Detect/Genotyping, PCR: High Risk HPV [...] in the context of a [facility] Non-SENSITIZER Cytology case; this result should be interpreted within the context of the Non-SENSITIZER cytology report. Resulted 12 Mar 2025 at 17:00 by [facility], [address] [place] [address] (CLIA [id number]) Full report attached. 03/17/2025 2:[address] [facility] Disclaimer Unless otherwise specified, all tissue is 10% NB formalin fixed and paraffin embedded. Technical cytopathology services provided by [facility], at [address] [place] [address] (IA # [id number]/Angel Villalobos MD, Film Drying Machine Operator.) 03/17/2025 2:31 PM EDT [facility] Brushing/Spatula Anal structure / Unknown 03/09/2025 03/10/2025 9:22 AM EDT us [address] MD LAB CYTOLOGY ORDERABLES F inal Result [facility] [address] [place] [address], documented in this encounter Visit Diagnoses Diagnosis Unspecified abnormal cytological findings in specimens from anus documented in this encounter Care Teams Manager Systems Relationship Specialty Start Date End Date Physician, Pcp Unknown PCP - General 03/10/25 documented as of this encounter
--- OUTSIDE RECORDS SUMMARY | 2025-05-07 10:34 | XMS_ITS | Continuity of Care Document ---
Author Name [facility], Medical Address [address] [place] [address] Organization Unknown Address [address] [place] [address] Medications No known medications Problems No known problems
--- OUTSIDE RECORDS SUMMARY | 2025-05-07 10:34 | XMS_ITS | Clinical Summary ---
Author Organization [facility] Address [address] [address] Phone Care Team Providers Care Executive Casino Host Name Role Phone Gaetano Gibbons MD Primary Care Provider [phone] Social History Tobacco Use Types Packs/Day Years [...] VACCINE ( - 2023-2 5 season) 2024 INFLUENZA VACCINE (#1) 2025 RSV VACCINE (1 - 1-dose 75+ series) [...] Medical Devices Not on file Care Teams Executive Casino Host Relationship Specialty Start Date End Date Gaetano Gibbons MD [address] [place] [address] [address], [address] [place] [address] [email or web address] PCP - General Family Medicine 07/02/23 Additional Source Comments The information contained in this document represents components of the legal health record. It is not the complete legal health record.[facility]
--- OUTSIDE RECORDS SUMMARY | 2025-05-07 10:34 | XMS_ITS | Clinical Summary ---
Author Organization [facility] Address [address] [place] [address] Phone Care Team Providers Care Surveying Crew Rodman Name Role Phone Physician, Pcp Unknown Primary Care Provider Bina vailable Allergies Active Allergy Reactions Criticality Noted Date Comments Acetaminophen Unknown 05/05/2025 Acetaminophen-Codeine 06/29/2016 Other Reaction(s): Rash/Dermatitis Codeine Itching 01/27/2015 Cortisone 01/27/2015 Doxycycline Unknown 01/29/2018 doxycycline Ibuprofen Hives 08/15/2013 Motrin Levofloxacin Hives 05/05/2025 Metoclopramide Hives 08/15/2013 Reglan Oxycodone-Acetaminophen 01/27/2015 Penicillins Hives,Rash 06/29/2016 Regain Rash 06/29/2016 Sulfamethoxazole-Trimethoprim Rash 2014 Tramadol 01/27/2015 Encounters Date Type Department Care Team Description 05/05/2025 9:45 AM EDT Consult Orthopedic Surgery [facility] [address] [place] [address] 250 [place] [id number] Kb Benitez, BERNABE Pain in toes of both feet (Primary Dx); Arthritis of both feet; Metatarsalgia of right foot; Onychogryphosis; Dermatophytosis, nail 03/10/2025 Lab Requisition [facility] [address] [place] [address] MD Unspecified abnormal cytological findings in specimens from anus 03/09/2025 Lab Requisition [facility] [address] [place] [address] MD Candidal esophagitis (CMS/[facility] V24, CMS/[facility] V28) from Last 3 Months Surgical History Surgery Date Site/Laterality Comments EYE SURGERY Left PROCEDURE: HISTORICAL EYE SURGERY OTHER SURGICAL HISTORY PROCEDURE: ---- OTHER ----; COMMENT: hemorrhoids Medical History Medical History Date Comments Seizures ([facility]24, [facility] V28) 06/29/2016 DX:Seizures ([facility]); COMMENT: F/u with neuro at [place] Dr Costello HIV (human immunodeficiency virus infection) ([facility] V24, [facility] V28) 06/29/2016 DX:HIV (human im munodeficiency virus infection) ([facility]); COMMENT: HIV dx in 1991, f/u Dr. Street Depression 06/29/2016 DX:Depression Anxiety 06/29/2016 DX:Anxiety; COMM ENT: F/u [facility] Chronic back pain 06/29/2016 DX:Chronic nena [...] Upcoming Encounters Date Type Department Care Team ([facility] st Contact Info) Description 07/07/2025 10:15 AM EDT Office Visit Orthopedic Surgery - [address] [address] Kb Benitez, BERNABE [address] [place] [phone] Health Maintenance Due Date Last Done Comments Hepatitis A Vaccines (1 of 2 - Risk 2-dose series) 1983 MMR Vaccines (1 of 2 - Risk 2-dose series) 12/24/2018 Meningococcal ACWY Vaccine (2 - Risk 2-dose series) 01/21/2019 11/26/2018 Cholesterol Screening (Lipid Panel) 08/13/2022 Colorectal Cancer Screening: Colonoscopy 08/13/2022 Hepatitis C Screening 08/13/2022 Medicare Annual Wellness Visit 08/13/2022 Social Influencers of Health Screening 08/13/2022 Hepatitis B Vaccines (1 of 3 - Risk 3-dose series) 2024 Depression Screening 09/10/2024 Hypertension/CHF/CAD Annual BMP Blood Test 05/05/2025 07/02/2023 Influenza Vaccine (#1) 2025 , 06/21/2023, 07/06/2022, Additional history exists DTaP,Tdap,and Td Vaccines (3 - Td or Tdap) 04/20/2027 04/20/2017, 05/26/2013 Pneumococcal Vaccine: 50+ Years Completed 02/27/2023, 01/31/2023, 03/19/2013 Zoster Vaccines Completed 02/27/2023, 11/08, 11/26/2018 RSV Immunization Adult Patients Completed 08/12/2024 COVID-19 Vaccine Completed 12/18/2024, , 09/27/2023, Additional history exists HIB Vaccines Aged Out No longer eligi [...] to complete this topic RSV Immunization Patients Under 20 months Aged Out No longer eligible based on [...] Routine 03/09/2025 12:00 AM EDT Candidal esophagitis ([facility]/HCC V24, CMS/HCC V28) CULTURE MISCELLANEOUS Routine 03/09/2025 12:00 AM EDT Candidal esophagitis ([facility] V24, [facility] V28) CHLAMYDIA TRACHOMATIS AND NEISSERIA GONORRHOEAE PCR Routine 03/09/2025 12:00 AM EDT Candidal esophagitis ([facility] V24, [facility] V28) from Last 3 Months Results * Thinprep cytology with HPV, anal (03/09/2025 12:00 AM EDT) Scan Result See Scanned Result 03/17/2025 2:21 PM EDT EXTERNAL LAB (NON-INTERFAC ED) Brushing/Spatula Anal structure / Unknown 03/09/2025 03/10/2025 10:12 AM EDT us [address] MD LAB PATHOLOGY ORDERABLES Final Result Performing Organization Address City/[facility]/ZIP Co de Phone Number EXTERNAL LAB (NON-INTERFACED) * (ABNORMAL) Culture fungus, other than skin hair or nails (03/09/2025 12:00 AM EDT) Culture, Fungus Yulia albicans(A) GALEN 03/18/2025 8:09 AM EDT [facility] Comment: Edited result: Previously reported as Yeast on 03/16/2025 at 1407 EDT. Swab Oral cavity structure / Unknown 03/09/2025 03/09/2025 6:57 PM EDT us [address] MD LAB MICROBIOLOGY - GENERA L ORDERABLES Final Result [facility] [address] [place] [address], [place] [phone] * (ABNORMAL) Culture miscellaneous (03/09/2025 12:00 AM EDT) Miscellaneous Culture Yulia albicans/dubl iniensis(A) GALEN 03/12/2025 10:54 AM EDT [facility] Comment: Edited result: Previously reported as Yeast on 2025 at 1140 EDT. Miscellaneous Culture Klebsiella pneumoniae ssp pneumoniae(A) GALEN 03/12/2025 10:54 AM EDT [facility] Comment: The organism [...] pneumoniae Trimethoprim/Sulfamethoxazo le GALEN <=20 ug/ml: Susceptible us Fabiola Street MD LAB MICROBIOLOGY - GENERA L ORDERABLES Final Result [facility] [address] [place] [address], * Chlamydia trachomatis and Neisseria gonorrhoeae molecular study (03/09/2025 12:00 AM EDT) Neisseria gonorrhoeae PCR Negative Negative LAB MOLECULAR DIAGNOSTICS METHOD 03/10/2025 8:49 AM EDT [facility] Chlamydia trachomatis PCR Negative Negative LAB MOLECULAR DIAGNOSTICS METHOD 03/10/2025 8:49 AM EDT [facility] Swab Rectum structure / Unknown 03/09/2025 03/09/2025 6:[address] MD LAB MICROBIOLOGY - GENERA L ORDERABLES Final Result [facility] [address] [place] [address], [place] [phone] * Non-gynecologic cytology (03/09/2025 12:00 AM EDT) Final Diagnosis Specimen sent to [facility] for Anal cytology with HPV CoTest. Their interpretation is as follows: Anal, Rectum (ThinPrep): Satisfactory for Evaluation. Transformation zone components absent. Negative for Intraepithelial Lesion or Malignancy. Disclaimer This test has been modified from the hoisting laborer's instructions. Its performance characteristics were determined by [facility] in a manner consistent with CLIA requirements. This test has not been cleared or approved by the U.S. Food and Drug Administration Report signed electronically by: Qi Lehman M.D. on 16 Mar 2025 at 13:55 at [facility], [address] [facility] (CLIA [id number]) HPV Anal Detect/Genotyping, PCR: High Risk HPV [...] was ordered in the context of a [facility] Non-SALES FLOOR ASSOCIATE Cytology case; this result should be interpreted within the context of the Non-SALES FLOOR ASSOCIATE cytology report. Resulted 12 Mar 2025 at 17:00 by [facility], [address] [place] [address] (CLIA [id number]) Full report attached. 03/17/2025 2:31 PM EDT [facility] Disclaimer Unless otherwise specified, all tissue is 10% NB formalin fixed and paraffin embedded. Technical cytopathology services provided by [facility], at [address] [place] [address] (IA # [id number]/Angel Villalobos MD, Tool And Die Inspector.) 03/17/2025 2:31 PM EDT [facility] Brushing/Spatula Anal structure / Unknown 03/09/2025 03/10/2025 9:22 AM EDT us [address] MD LAB CYTOLOGY ORDERABLES F inal Result [facility] [address] [place] [address], from Last 3 Months Insurance MEDICAID - [place] [facility] MEDICARE Member Subscriber Plan / Payer (Ef fective 2017-Present) Name:VICKIE GROVER Relation to Subscriber:Self Name:Vickie Fall Payer ID:[id number] Group ID:[id number] Type:Not on file Address: [address] [place] [address] Care Teams Surveying Crew Rodman Relationship Specialty Start Date End Date Physician, Pcp Unknown PCP - General 03/10/25
--- OUTSIDE RECORDS SUMMARY | 2025-05-07 10:34 | XMS_ITS | Clinical Summary ---
Author Organization [facility] Address [address] [place] [address] Care Team Providers Care Title I Coordinator Name Role Phone Zora Arce PA-C Primary Care Provider [phone] Source Comments PLEASE NOTE, if this patient [...] EC tabletIndications:H IV (human immunodeficiency virus infection) ([facility]) Take 1 Tab by mouth [...] NUTRITION) liquidIndications:H IV (human immunodeficiency virus infection) ([facility]) Take 1 Can by mouth 3 (three) [...] intermittent, uncomplicated ([facility]) Place 1 [place] into the nostril(s) as needed for congestion. 60 mL 6 016 Active omeprazole (PRILOSEC) [address] capsuleIndications: Dyspepsia Take 1 Cap by mouth every morning before breakfast. Do not crush or chew. 30 Cap 3 016 Active albuterol sulfate hfa (PROAIR HFA) 90 mcg/actuation inhalerIndications: Asthma, intermittent, uncomplicated ([facility]) Inhale 2 Puffs into the lungs every 4 (four) hours as needed for shortness of breath. Int asthma 18 g 6 016 Active Active Problems Problem Noted Date Diagnosed Date Asthma, mild intermittent ([facility]) 05/06/2015 Fibromyalgia 01/27/2015 Generalized anxiety disorder 01/27/2015 Seizure disorder ([facility]) 01/27/2015 Major depressive disorder, r ecurrent, severe without psychotic features ([facility]) 01/27/2015 Overview (01/27/2015): Has therapist at [facility] HIV (human immunodeficiency virus infection) ([facility]) 01/27/2015 Chronic back pain 01/27/2015 Hepatitis C [...] Plan of Treatment [place] on file [place] Member Subscriber [facility] / [facility] Name:Benjamin Fall Relation to Subscriber:Self Name:Benjamin Fall Payer ID:[id number] Group ID:Not on file Type:Medicaid Address: [address] DENTAL Member Subscriber Plan / Payer [facility]-Present) Name:Benjamin Fall Relation to Subscriber:Self Name:Benjamin Fall Payer ID:[id number] Group ID:Not on file Type:Other Address: [address] [place] [address] Care Teams Title I Coordinator Relationship Specialty Start Date End Date Zora Arce PA-C [address] [place] [address] PCP - General 11/05/18
--- OUTSIDE RECORDS SUMMARY | 2025-05-07 10:34 | XMS_ITS | Encounter Summary ---
Author Organization [facility] Address [address] [place] [address] Encounters * CPT with Medical instED at [employer] on 2025-04-10 Member's TELEVISION ANALYZERAshtyn, phoned in without member present requesting a home visit. Member outreached telephonically. Member states his left eye is red painful and has white drainage. Member states symptoms started yesterday and will like to be evaluated at home. Member called his PCP and was told a nurse will call him but no one has called him back. Member states symptoms started yesterday and will like to be evaluated at home. { reasonForRequest : pink eye , patientReports : , den ies :[], chiefComplaints : Eye Complaint , pmh : COPD/Asthma, Hypertension, HIV/AIDS, Asthma, Depression, Fibromyalgia, Migraine, Anxiety Disorder, Hepatitis C", allergies : Acetaminophen, Ibuprofen, Levofloxacin, Metoclopramide ,&quot ;otherAllergies :null, painAssessment : , visitOutcome : &q uot;, additionalComments : HPI reviewed by this RN, no further information needed toprocess visit -Crystal Christianson RN } Pt chief complaint today of pink eye in his left eye. Pt notes that all signs and symptoms have been occurring for approx 2 days prior to [facility] arrival at scene. Pt state that he has been having a gathering of crust in the eye that he has been removing using a warm compress. Pt also note that he has been having some outer eye pain at a level,of 7/10. Pt is unsure if he has been in recent contact with anyone who has pink eye themself. Pt notes no changes to vision. Pt also notes no recent tsunami and or damage to the above mentioned area. Today the pt would appreciate a general assessment as well as treatment if possible. Pt denies any cp, sob, NVD, dizziness. Allergies are noted. Non neural focal exam, afebrile, pt is able to ambulate at baseline without the assistance of a walking device and or person. Vitals are WNL for the pt. Lungs present as clear bilaterally on auscultation. Benign abdominal assessment, no new and or worsening lower extremity edema. Upon assessment ofthe left eye pt notes no civics on change, painful upon palpation, pain or movement of he eyeball but no pain directly on the eyeball itself. Itchy. Pt is CAOX4 with a GCS of 15. POC bloodwork notes no significant irregularities. [facility] Derrell Castillo consulted. Pt is informed of findings. Prescription for Clindamycin sent to pharmacy. Pt is also inform to usewarm compresses on the area every 6-8 hours as needed. Pt also inform to call his pcp at earliest convenience for follow up as needed. Education provided on red flag S&S and pt informed to call emergency services if any present. Written by Medical Katiana on 2025-04-10
--- OUTSIDE RECORDS SUMMARY | 2025-05-07 10:34 | XMS_ITS | Encounter Summary ---
Author Organization [facility] Address [address] [place] [address] Care Team Providers Care Sas Programmer Analyst Name Role Phone Physician, Pcp Unknown Primary Care Provider Bina vailable Encounter Details Date Type Department Care Team (Late Contact Info) Description 03/09/2025 Lab Requisition [facility] [address] [facility] [place] [address] MD [address] [place] [address] Candidal esophagitis ([facility] V24, [facility] V28) Social History Tobacco Use Types Packs/Day Years [...] Upcoming Encounters Date Type Department Care Team ([facility] Contact Info) Description 07/07/2025 10:15 AM EDT Office Visit Orthopedic Surgery - [place] 250 [address] [facility] [address] [place] [address] Kb Benitez DPM [address] [place] [address] documented as of this encounter Procedures Procedure Name Priority Date/Time Associated Diagnosis Comments CULTURE FUNGUS, OTHER THAN SKIN HAIR OR NAILS Routine 03/09/2025 12:00 AM EDT Candidal esophagitis ([facility] V24, [facility] V28) CULTURE MISCELLANEOUS Routine 03/09/2025 12:00 AM EDT Candidal esophagitis ([facility] V24, [facility] V28) CHLAMYDIA TRACHOMATIS AND NEISSERIA GONORRHOEAE PCR Routine 03/09/2025 12:00 AM EDT Candidal esophagitis ([facility] V24, [facility] V28) documented in this encounter Results * (ABNORMAL) Culture fungus, other than skin hair or nails (03/09/2025 12:00 AM EDT) Culture, Fungus Yulia albicans(A) GALEN 03/18/2025 8:09 AM EDT [facility] Comment: Edited result: Previously reported as Yeast on 03/16/2025 at 1407 EDT. Swab Oral cavity structure / Unknown 03/09/2025 03/09/2025 6:57 PM EDT us [address] MD LAB MICROBIOLOGY - GENERA L ORDERABLES Final Result [facility] [address] [place] [address], [place] [phone] * (ABNORMAL) Culture miscellaneous (03/09/2025 12:00 AM EDT) Miscellaneous Culture Yulia albicans/dubl iniensis(A) GALEN 03/12/2025 10:54 AM EDT [facility] Comment: Edited result: Previously reported as Yeast on 2025 at 1140 EDT. Miscellaneous Culture Klebsiella pneumoniae ssp pneumoniae(A) GALEN 03/12/2025 10:54 AM EDT [facility] Comment: The organism value [...] L ORDERABLES Final Result Performing Organization Address City/[facility]/ZIP Co de Phone Number [facility] [address] [place] [address], [place] [phone] * Chlamydia trachomatis and Neisseria gonorrhoeae molecular study (03/09/2025 12:00 AM EDT) Neisseria gonorrhoeae PCR Negative Negative LAB MOLECULAR DIAGNOSTICS METHOD 03/10/2025 8:49 AM EDT [facility] Chlamydia trachomatis PCR Negative Negative LAB MOLECULAR DIAGNOSTICS METHOD 03/10/2025 8:49 AM EDT [facility] Swab Rectum structure / Unknown 03/09/2025 03/09/2025 6:[address] MD LAB MICROBIOLOGY - GENERA L ORDERABLES Final Result Performing Organization Address City/[facility]/ZIP Co de Phone Number [facility] [address] [place] [address], [place] [phone] documented in this encounter Visit Diagnoses Diagnosis Candidal esophagitis ([facility] V24, [facility] V28) Candidiasis of the esophagus documented in this encounter Care Teams Sas Programmer Analyst Relationship Specialty Start Date End Date Physician, Pcp Unknown PCP - General 03/10/25 documented as of this encounter
== END 2025-05-07 09:57 | disposition home or self-care (01) ==
LOC: HO.ENCR 09:30
PROVIDERS: PCP Student in an Organized Health Care Education/Training Program; Visit Provider Student in an Organized Health Care Education/Training Program
DX: M81.0 Age-related osteoporosis without current pathological fracture (principal); E27.8 Other specified disorders of adrenal gland; E29.1 Testicular hypofunction
CPT/HCPCS: 99214

== ENCOUNTER → 2025-05-07 09:30 | Outpatient (BNVA) | payer OTHER, SELFPAY | PROVIDERS: PCP Student in an Organized Health Care Education/Training Program; Visit Provider Student in an Organized Health Care Education/Training Program | DX: M81.0 Age-related osteoporosis without current pathological fracture (principal); E27.8 Other specified disorders of adrenal gland | CPT/HCPCS: 99212 ==

== ENCOUNTER 2025-05-13 09:17 | Outpatient (AMB) | payer OTHER, SELFPAY ==
--- NOTE | 2025-05-13 09:39 | AM.OFFVISNUR ---
Intake Visit Reasons: Evenity #8 Allergies Seasonal Allergies Allergy (Intermediate, Verified 05/07/25 09:35) Eye Drainage codeine (From Tylenol-Codeine #3) Allergy (Mild, Verified 05/07/25 09:35) Rash levofloxacin (From Levaquin) Allergy (Mild, Verified 05/07/25 09:35) Rash metoclopramide (From Reglan) Allergy (Mild, Verified 05/07/25 09:35) Rash acetaminophen (Tylenol-Codeine #3) Allergy (Unknown, Verified 05/07/25 09:35) Rash Penicillins (PENICILLINS) Allergy (Unknown, Verified 05/07/25 09:35) Rash ibuprofen (From Motrin) Adverse Reaction (Unknown, Verified 05/07/25 09:35) Reflux Office Meds romosozumab-aqqg 210 mg/2.34 mL(105 mg/1.17 mL x2)subcutaneous syringe Performing Provider: Ritu Scott MD Performing Location: [facility] Administered by: Na Croft RN on 05/13/25 09:40 Dose Route Admin Location Dispensed Lot Number Expiration Date [facility] [employer] 210 mg subcut bilateral upper arms 2.34 mL [id number] 07/10/27 76708-934-59 [facility]GEN Total Dispensed Waste 2.34 mL 0 % Comments: Pt accompanied by GOLF CLUB MAKER who interpreted visit. Pt declined translator/interpreter. No adverse reactions reported from previous injection. Pt tolerated injection well. Pt scheduled in 4 weeks for next appt. No further questions at this time. Assessment & Plan Assessment & Plan Orders: Orders AMB Romosozumab Injection Patient Supplied Today M81.0 - Age-related osteoporosis without current pathological fracture Coding
--- OUTSIDE RECORDS SUMMARY | 2025-05-13 10:01 | XMS_ITS | Clinical Summary ---
Author Organization [facility] Address [address] [place] [address] Care Team Providers Care Strapping Machine Tender Name Role Phone Zora Arce PA-C Primary Care Provider [phone] Source Comments PLEASE NOTE, if this patient [...] EC tabletIndications:H IV (human immunodeficiency virus infection) ([facility]) Take 1 Tab by mouth once daily. [...] NUTRITION) liquidIndications:H IV (human immunodeficiency virus infection) ([facility]) Take 1 Can by mouth 3 [...] % nasal sprayIndications:As thma, intermittent, uncomplicated ([facility]) Place 1 [place] into the nostril(s) as needed for congestion. 60 mL 6 016 Active omeprazole (PRILOSEC) [address] capsuleIndications: Dyspepsia Take 1 Cap by mouth every morning before breakfast. Do not crush or chew. 30 Cap 3 016 Active albuterol sulfate hfa (PROAIR HFA) 90 mcg/actuation inhalerIndications: Asthma, intermittent, uncomplicated ([facility]) Inhale 2 Puffs into the lungs every 4 (four) hours as needed for shortness of breath. Int asthma 18 g 6 016 Active Active Problems Problem Noted Date Diagnosed Date Asthma, mild intermittent ([facility]) 05/06/2015 Fibromyalgia 01/27/2015 Generalized anxiety disorder 01/27/2015 Seizure disorder ([facility]) 01/27/2015 Major depressive disorder, r ecurrent, severe without psychotic features ([facility]) 01/27/2015 Overview (01/27/2015): Has therapist at [facility] HIV (human immunodeficiency virus infection) ([facility]) 01/27/2015 Chronic back pain 01/27/2015 Hepatitis [...] Plan of Treatment Not on file [place] Member Subscriber Plan / P[facility]28[facility]-Present) Name:Benjamin Fall Relation to Subscriber:Self Name:Benjamin Fall Payer ID:[id number] Group ID:Not on file Type:Medicaid Address: [address] DENT[address] Member Subscriber Plan / Payer ([facility] 07/28/2015-Present) Name:Benjamin Fall Relation to Subscriber:Self Name:Benjamin Fall Payer ID:[id number] Group ID:Not on file Type:Other Address: [address] [place] [address] Care Teams Strapping Machine Tender Relationship Specialty Start Date End Date Zora Arce PA-C [address] [place] [address] PCP - General 11/05/18
--- OUTSIDE RECORDS SUMMARY | 2025-05-13 10:01 | XMS_ITS | Clinical Summary ---
Author Organization [facility] Address [address] [address] Phone Care Team Providers Care Sales Vendor Name Role Phone Gaetano Gibbons MD Primary Care Provider [phone] Social History Tobacco Use Types Packs/Day Years [...] 2014 ZOSTER VACCINES (1 of 2) 2014 INFLUENZA VACCINE (#1) 2025 COVID-19 VACCINE (2023-2 5 season) 2025 RSV VACCINE (1 - 1-dose 75+ [...] Medical Devices Not on file Care Teams Sales Vendor Relationship Specialty Start Date End Date Gaetano Gibbons MD [address] [place] [address] [address] [place] [address] [email or web address] PCP - General Family Medicine 07/02/23 Additional Source Comments The information contained in this document represents components of the legal health record. It is not the complete legal health record[facility]
--- OUTSIDE RECORDS SUMMARY | 2025-05-13 10:01 | XMS_ITS | Encounter Summary ---
Author Organization [facility] Address [address] [place] [address] Care Team Providers Care Coal Cutting Machine Operator Name Role Phone Physician, Pcp Unknown Primary Care Provider Bina vailable Encounter Details Date Type Department Care Team (Late Contact Info) Description 03/09/2025 Lab Requisition [facility] - Main Lab [address] [facility] [place] [address] MD [address] [place] [address] Candidal esophagitis (CMS/HCC V24, CMS/HCC V28) Social History Tobacco Use Types Packs/Day [...] Upcoming Encounters Date Type Department Care Team ([facility] Contact Info) Description 05/19/2025 9:30 AM EDT Office Visit [facility]opedic [facility] [address] [phone] Kb Benitez DPM [address] [address] 07/07/2025 10:15 AM EDT Office Visit [facility] [address] [phone] Kb Benitez DPM [address] [address] documented as of this encounter Procedures Procedure Name Priority Date/Time Associated Diagnosis Comments CULTURE FUNGUS, OTHER THAN SKIN HAIR OR NAILS Routine 03/09/2025 12:00 AM EDT Candidal esophagitis ([facility] V24, [facility] V28) CULTURE MISCELLANEOUS Routine 03/09/2025 12:00 AM EDT Candidal esophagitis ([facility] V24, [facility] V28) CHLAMYDIA TRACHOMATIS AND NEISSERIA GONORRHOEAE PCR Routine 03/09/2025 12:00 AM EDT Candidal esophagitis ([facility] V24, [facility] V28) documented in this encounter Results * (ABNORMAL) Culture fungus, other than skin hair or nails (03/09/2025 12:00 AM EDT) Culture, Fungus Yulia albicans(A) GALEN 03/18/2025 8:09 AM EDT [facility] Comment: Edited result: Previously reported as Yeast on 03/16/2025 at 1407 EDT. Swab Oral cavity structure / Unknown 03/09/2025 03/09/2025 6:[address] MD LAB MICROBIOLOGY - GENERA L ORDERABLES Final Result [facility] [address] [place] [address], * (ABNORMAL) Culture miscellaneous (03/09/2025 12:00 AM EDT) Miscellaneous Culture Yulia albicans/dubl iniensis(A) GALEN 03/12/2025 10:54 AM EDT [facility] Comment: Edited result: Previously reported as Yeast on 2025 at 1140 EDT. Miscellaneous Culture Klebsiella pneumoniae ssp pneumoniae(A) GALEN 03/12/2025 10:54 AM EDT [facility] Comment: The organism value [...] MICROBIOLOGY - GENERA L ORDERABLES Final Result [facility] [address] [place] [address], * Chlamydia trachomatis and Neisseria gonorrhoeae molecular study (03/09/2025 12:00 AM EDT) Neisseria gonorrhoeae PCR Negative Negative LAB MOLECULAR DIAGNOSTICS METHOD 03/10/2025 8:49 AM EDT [facility] Chlamydia trachomatis PCR Negative Negative LAB MOLECULAR DIAGNOSTICS METHOD 03/10/2025 8:49 AM EDT [facility] Swab Rectum structure / Unknown 03/09/2025 03/09/2025 6:35 PM EDT us [address] MD LAB MICROBIOLOGY - GENERA L ORDERABLES Final Result [facility] [address] [place] [address], documented in this encounter Visit Diagnoses Diagnosis Candidal esophagitis ([facility] V24, [facility] V28) Candidiasis of the esophagus documented in this encounter Care Teams Coal Cutting Machine Operator Relationship Specialty Start Date End Date Physician, Pcp Unknown PCP - General 03/10/25 documented as of this encounter
--- OUTSIDE RECORDS SUMMARY | 2025-05-13 10:01 | XMS_ITS | Encounter Summary ---
Author Organization [facility] Address [address] [place] [address] Care Team Providers Care School Bus Driver/Teacher Assistant Name Role Phone Physician, Pcp Unknown Primary Care Provider Bina vailable Encounter Details Date Type Department Care Team ([facility] Contact Info) Description 03/10/2025 Lab Requisition [facility] - Main Lab [address] [facility] [place] [address] MD [address] [place] [address] Unspecified abnormal cytological findings in specimens from [...] Upcoming Encounters Date Type Department Care Team ([facility] Contact Info) Description 05/19/2025 9:30 AM EDT Office Visit Orthopedic [facility] [address] [phone] Kb Benitez DPM [address] [address] 07/07/2025 10:15 AM EDT Office Visit [facility] [address] [phone] Kb Benitez DPM [address] [address] documented as of this encounter Procedures Procedure [...] EDT) Final Diagnosis Specimen sent to [facility] for Anal cytology with HPV CoTest. Their interpretation is as follows: Anal, Rectum (ThinPrep): Satisfactory for Evaluation. Transformation zone components absent. Negative for Intraepithelial Lesion or Malignancy. Disclaimer This test has been modified from the vineyard worker's instructions. Its performance characteristics were determined by [facility] in a manner consistent with CLIA requirements. This test has not been cleared or approved by the U.S. Food and Drug Administration Report signed electronically by: Qi Lehman M.D. on 16 Mar 2025 at 13:55 at [facility], [address] [place] [address] (CLIA [id number]) HPV Anal Detect/Genotyping, PCR: High Risk HPV [...] ordered in the context of a [facility] Non-WASTE WATER WORKER Cytology case; this result should be interpreted within the context of the Non-WASTE WATER WORKER cytology report. Resulted 12 Mar 2025 at 17:00 by [facility], [address] [facility] (CLIA [id number]) Full report attached. 03/17/2025 2:31 PM EDT [facility] Disclaimer Unless otherwise specified, all tissue is 10% NB formalin fixed and paraffin embedded. Technical cytopathology services provided by [facility], at [address] [place] [address] (CLIA # [id number]/Angel Villalobos MD, Inside Polisher.) 03/17/2025 2:31 PM EDT [facility] Brushing/Spatula Anal structure / Unknown 03/09/2025 03/10/2025 9:22 AM EDT us [address] MD LAB CYTOLOGY ORDERABLES F inal Result [facility] [address] [place] [address], documented in this encounter Visit Diagnoses Diagnosis Unspecified abnormal cytological findings in specimens from anus documented in this encounter Care Teams School Bus Driver/Teacher Assistant Relationship Specialty Start Date End Date Physician, Pcp Unknown PCP - General 03/10/25 documented as of this encounter
--- OUTSIDE RECORDS SUMMARY | 2025-05-13 10:01 | XMS_ITS | Clinical Summary ---
Author Organization 175 [facility] Address [address] [place] [address] Phone Care Team Providers Care Lens Blank Gauger Name Role Phone Physician, Pcp Unknown Primary [...] Encounters Date Type Department Care Team Description 05/12/2025 Telephone Orthopedic Surgery [facility] [address] [phone] Kb Benitez DPM 05/05/2025 9:45 AM EDT Consult Orthopedic Surgery [facility] [address] [phone] Kb Benitez DPM Pain in toes of both feet (Primary Dx); Arthritis of both feet; Metatarsalgia of right foot; Onychogryphosis; Dermatophytosis, nail 03/10/2025 Lab Requisition [facility] [address] [place] [address] MD Unspecified abnormal cytological findings in specimens from anus 03/09/2025 Lab Requisition [facility] [address] [place] [address] MD Candidal esophagitis ([facility] V24, [facility] V28) from Last 3 Months Surgical History Surgery Date Site/Laterality Comments EYE SURGERY Left PROCEDURE: HISTORICAL EYE SURGERY OTHER SURGICAL HISTORY PROCEDURE: ---- OTHER ----; COMMENT: hemorrhoids Medical History Medical History Date Comments Seizures ([facility] V24, [facility] V28) 06/29/2016 DX:Seizures ([facility]); COMMENT: F/u with neuro at [place] [address] [facility] HIV (human immunodeficiency virus infection) ([facility] V24, [facility] V28) 06/29/2016 DX:HIV (human im munodeficiency virus infection) ([facility]); COMMENT: HIV dx in 1991, f/u Dr. Street Depression 06/29/2016 DX:Depression Anxiety 06/29/2016 DX:Anxiety; COMM ENT: F/u [facility] Chronic back pain 06/29/2016 DX:Chronic nena [...] Care Team (Late st Contact Info) Description 05/19/2025 9:30 AM EDT Office Visit Orthopedic [facility] [address] [phone] Kb Benitez DPM [address] [address] 07/07/2025 10:15 AM EDT Office Visit [facility] [address] [phone] Kb Benitez, DPWilmer [address] [address] Health Maintenance Due Date Last Done Comments [...] Routine 03/09/2025 12:00 AM EDT Candidal esophagitis ([facility] V24, [facility] V28) CULTURE MISCELLANEOUS Routine 03/09/2025 12:00 AM EDT Candidal esophagitis ([facility] V24, [facility] V28) CHLAMYDIA TRACHOMATIS AND NEISSERIA GONORRHOEAE PCR Routine 03/09/2025 12:00 AM EDT Candidal esophagitis ([facility] V24, [facility] V28) from Last 3 Months Results * [...] Final Result [facility] [address] [place] [address], [place] [phone] * (ABNORMAL) Culture miscellaneous (03/09/2025 12:00 AM [...] L ORDERABLES Final Result Performing Organization Address City/[facility]/ZIP Co de Phone Number [facility] [address] [place] [address], [place] [phone] * Chlamydia trachomatis and Neisseria gonorrhoeae molecular [...] Organization Address [facility] Co de Phone Number [facility] [address] [place] [address], [place] [phone] * Non-gynecologic cytology (03/09/2025 12:00 AM EDT) Final Diagnosis Specimen sent to [facility] for Anal cytology with HPV CoTest. Their interpretation is as follows: Anal, Rectum (ThinPrep): Satisfactory for Evaluation. Transformation zone components absent. Negative for Intraepithelial Lesion or Malignancy. Disclaimer This test has been modified from the aviation safety equipment technician's instructions. Its performance characteristics were determined by [facility] in a manner consistent with CLIA requirements. This test has not been cleared or approved by the U.S. Food and Drug Administration Report signed electronically by: Qi Lehman M.D. on 16 Mar 2025 at 13:55 at [facility], [address] [place] [address] (CLIA [id number]) HPV Anal Detect/Genotyping, PCR: High Risk HPV [...] was ordered in the context of a [facility] Non-SEAM TAPER MACHINE Cytology case; this result should be interpreted within the context of the Non-SEAM TAPER MACHINE cytology report. Resulted 12 Mar 2025 at 17:00 by [facility], [address] [place] [address] (CLIA [id number]) Full report attached. 03/17/2025 2:31 PM EDT [facility] Disclaimer Unless otherwise specified, all tissue is 10% NB formalin fixed and paraffin embedded. Technical cytopathology services provided by [facility], at [address] [place] [address] (CLIA # [id number]/Angel Villalobos MD, Boiler Technician.) 03/17/2025 2:31 PM EDT [facility] Brushing/Spatula Anal structure / Unknown 03/09/2025 03/10/2025 9:22 AM EDT us [address] MD LAB CYTOLOGY ORDERABLES F inal Result [facility] [address] [place] [address], from Last 3 Months Insurance MEDICAID - [place] [employer] MEDICARE Member Subscriber Plan / Payer (Ef fective 2017-Present) Name:VICKIE GROVER Relation to Subscriber:Self Name:Vickie Fall Payer ID:[id number] Group ID:[id number] Type:Not on file Address: [address] [place] [address] Care Teams Lens Blank Gauger Relationship Specialty Start Date End Date Physician, Pcp Unknown PCP - General 03/10/25
--- OUTSIDE RECORDS SUMMARY | 2025-05-13 10:01 | XMS_ITS | Encounter Summary ---
Author Organization [employer] Address [address] [place] [address] Care Team Providers Care Social Sciences Research Scientist Name Role Phone Physician, Pcp Unknown Primary Care Provider Bina vailable Reason for Visit * Reason Onset Date Comments nail pain 05/12/2025 Encounter Details Date Type Department Care Team (Late st Contact Info) Description 05/12/2025 Telephone Orthopedic Surgery - [place] [address] [phone] Kb Benitez DPM [address] [address] Social History Tobacco Use Types Packs/Day Years [...] as of this encounter Progress Notes * Dayna Mckinley MA - 05/12/2025 3:55 PM EDT Spoke to pipe chipper someone from our office will call to schedule * Cesilia Montes - 05/12/2025 10:27 AM EDT Patient's PRESCHOOL ASSISTANT PRINCIPAL, Ashtyn, Is calling on behalf of patient stating that he is having increased Nail pain after having nails cut last week Ashtyn is requesting a call back @ [phone] . Thanks. documented in this encounter Plan of Treatment Upcoming Encounters Date Type Department Care Team (Late st Contact Info) Description 05/19/2025 9:30 AM EDT Office Visit Orthopedic Surgery [place] [address] [phone] Kb Benitez DPM [address] [address] 07/07/2025 10:15 AM EDT Office Visit Orthopedic Surgery - [place] [address] [phone] Kb Benitez DPM [address] [address] documented as of this encounter Visit Diagnoses Not on filedocumented in this encounter Care Teams Social Sciences Research Scientist Relationship Specialty Start Date End Date Physician, Pcp Unknown PCP - General 03/10/25 documented as of this encounter
== END 2025-05-13 09:38 | disposition home or self-care (01) ==
LOC: HO.ENCR 09:17
PROVIDERS: PCP Student in an Organized Health Care Education/Training Program; Visit Provider Student in an Organized Health Care Education/Training Program
DX: M81.0 Age-related osteoporosis without current pathological fracture (principal)

== ENCOUNTER 2025-05-13 09:49 | Outpatient (REF) | payer OTHER, SELFPAY ==
--- NOTE | ~2025-05-13 | FL_ITS ---
EXAMINATION: Modified Barium Swallow CLINICAL INFORMATION: Dysphagia COMPARISON: None TECHNIQUE: Modified barium swallow was performed under lateral fluoroscopy with patient in standing position. Barium mixed with solids and liquids of different consistencies was administered by the speech pathologist. Examination was recorded in the fluoroscopy suite. FINDINGS: The patient has a PEG tube. Attempts were made to give the patient different consistencies via oral route. The patient spit out the liquids, unable to swallow. With applesauce, patient could not initiate a swallow and there was stasis of the applesauce within the vallecula. This did not progress and the patient was again unable to initiate a swallow. FLUOROSCOPY TIME: 2 minutes, 5 seconds Number of Spot Images: N/A DOSE AREA PRODUCT: 871.7 uGy-m2 (microgray-meter squared) FL/FL Modified Barium Swallow IMPRESSION: Patient was unable to initiate a swallow. Refer to the full speech therapy report to follow for further detail. Electronically signed by: Kj Garnica MD 05/13/2025 01:11 PM EDT
[2025-05-13 10:32] LABS: Hematocrit 43.6 % (42.0-52.0); Hemoglobin 15.1 g/dl (14.0-18.0); Mean Corpuscular HGB Conc 34.6 g/dl (31.0-36.0); Mean Corpuscular Hemoglobin 34.2 pg (27.0-33.0); Mean Corpuscular Volume 98.9 fL (80.0-98.0); NRBC Abs Auto 0.000 X10*3/uL (0.0-0.012); NRBC Pct Auto 0.0 /100WBC (0.0-0.2); Platelet Count 243 X10*3/uL (160-400); Red Blood Count 4.41 X10*6/uL (4.60-5.80); White Blood Count 5.9 X10*3/uL (4.8-10.8)
[2025-05-13 10:45] LABS: Hemoglobin A1C 167.5133 umol/L; Total Hemoglobin (HGBA1C) 3975.4195 umol/L
[2025-05-13 11:10] LABS: Alanine Aminotransferase 144 U/L (0-40); Albumin Level 4.5 g/dL (3.5-5.0); Alkaline Phosphatase 51 U/L (39-117); Anion Gap 15 (12-20); Aspartate Amino Transferase 56 U/L (5-37); Blood Urea Nitrogen 11 mg/dL (9-16); Calcium 9.7 mg/dL (8.4-10.2); Carbon Dioxide 23 mmol/L (22-29); Chloride 107 mmol/L (96-108); Cholesterol 144 mg/dL (<200); Estimated Glomerular Filt Rate > 60; HDL Cholesterol 37 mg/dL (>40); Potassium 3.9 mmol/L (3.3-5.1); Sodium 141 mmol/L (135-145); Total Protein 7.7 g/dL (6.5-8.0); Triglycerides 154 mg/dL (<150)
[2025-05-13 11:24] LABS: Syphilis Screen Nonreactive (Nonreactive)
[2025-05-13 11:25] LABS: HBS Num1 23.73 mIU/mL (0-7.99); HBc Num1 6.65 S/CO (0.00-0.79); HBsAGNum1 0.46 S/CO (0.00-0.99); Hepatitis B Surface Antigen Negative (Negative); ~HepC Num1 9.00 S/CO (0.00-0.79); ~Hepatitis B Surface Antibody REACTIVE (Nonreactive); ~Hepatitis C Antibody Reactive (Nonreactive)
[2025-05-13 12:08] LABS: HBc Num2 6.70 S/CO; HBc Num3 6.36 S/CO
[2025-05-15 15:55] LABS: HCV Log PCR <1.18 NOT DETECTED Log IU/mL (NOT DETECTED); HepC Viral Load <15 NOT DETECTED IU/mL (NOT DETECTED)
--- NOTE | 2025-05-18 12:30 | MHC.SL.MBSTD ---
Referring provider: Sheryl Rodriguez NP Reason for Referral: Chronic dysphagia Type of Treatment: 86929 Modified Barium Swallow Study Date of Plan of Treatment: 05/13/25 Onset of Symptoms/Illness: 06/12/21 Date Treatment Started: 05/13/25 Medical Diagnosis: HIV Speech & Language Primary Diagnosis:R13.12 Oropharyngeal Phase Dysphagia Speech & Language Secondary Diagnosis: Comments: Patient is a 60 year old male referred for a modified barium swallow study (MBSS) by Sheryl Rodriguez NP from the Pulmonology office. Patient has extensive history of chronic dysphagia and has been seen by the speech team during multiple prior admissions at [facility] between 2929-3711. Patient did have an MBSS done previously in 2020, which showed good ability to protect the airway at the time and main deficit in the oral phase, with slow mastication and significant residue post-swallow. He was recommended a CHOPPED(NDD3) diet, but then downgraded after subsequent hospitalizations in 2022 to PUREED (NDD1) solids and NECTAR THICK liquids, to which he was reportedly noncompliant. With time, patient's swallow further declined and he no longer tolerated purees. A PEG tube was subsequently placed for feedings during a hospitalization in July 2023. To date, patient receives his nutrition and medication through the PEG. Patient was recently admitted to the hospital for acute hypoxic respiratory failure d/t aspiration pneumonia and chronic pulmonary embolism. Pertinent medical history includes asthma, HIV, substance abuse, PNA, adult FTT, Hepatitis C, fibromyalgia. Patient's ROLLING MILL OPERATOR HELPER was present and reports patient continues to have increasing difficulty swallowing, though he still tries to swallow soft foods such as mashed potatoes. She recalls patient having speech therapy in the past for his dysphagia and doing oral motor exercises. She notes that his swallow seemed to be better at the time, but has since declined. Medical History: Medical History Fibromyalgia Hepatitis C virus infection without hepatic coma Myalgia History of pulmonary embolism Lower urinary tract symptoms Hypogonadism in male Low serum cortisol level Adrenal hyperplasia Osteoporosis Height loss HIV (human immunodeficiency virus infection) Asthma Dysphagia Adult failure to thrive Adult failure to thrive Multiple rib fractures History of empyema of pleura (01/05/23) Hypertension Closed fracture of leg Hepatitis C Kidney stones Pleuritic chest pain Pneumonia Substance abuse Hemorrhoids Depression HIV (human immunodeficiency virus infection) Asthma Surgical History H/O hemorrhoidectomy Assessment Oral Motor Exam: Facial Symmetry: Symmetrical Facial Movement: Controlled Mouth Occlusion: Normal Oral-Facial Smile (Lips) Description: Reduced ROM Tongue Size: Normal Tongue Excursion Description: Incomplete Tongue Range of Movement Description: Reduced Tongue Speed of Movement Description: Reduced Tongue Strength of Movement (against opposing pressure): Reduced Clinicial Observations: Patient was seated upright at 90 degrees for lateral view. He was given trace amounts of thin consistency and puree by spoon. Patient held bolus in anterior mouth. There was minimal to no lingual movement. Patient was verbally cued to swallow, but shook his head and indicated that he could not swallow. Patient did elicit a swallow on one occasion, but without transport of bolus from the oral cavity. On swallow, there was minimal laryngeal elevation, no anterior hyoid excursion, and partial epiglottic inversion. Contrast eventually spilled into the pharynx without productive lingual movement. Contrast collected in the valleculae and pyriforms. Patient was unable to elicit swallow to clear contrast from the pharynx. Exam was terminated due to patient's inability to initiate lingual movement or elicit a pharyngeal swallow trigger. Modified Barium Swallow Study: Oral Phase: Impaired Liquid Via Spoon, Puree ? Labial Seal: Intact ? A/P Transit: Impaired ? Lingual Movement: Impaired ? Rotary Mastication: Could Not Test ? Premature Spillage: Could Not Test ? Oral Residue: Could Not Test Pharyngeal Phase: Impaired Thin Liquid via Spoon, Puree ? Velopharyngeal Closure: Could Not Test ? Tongue Base Retraction: Impaired ? Laryngeal Excursion: Impaired ? Epiglottal Deflection: Impaired ? Pharyngeal Peristalsis: Could Not Test ? Valleculae Clearing: Impaired ? Pyriform Clearing: Impaired ? UES Opening: Could Not Test ? Penetration: Could Not Test ? Aspiration: Could Not Test Impressions and Recommendations Prognosis for Improvement: Poor Comment: Patient w/ declining swallow, would benefit from Neuro consult Recommendation for Speech Therapy: Speech Therapy through [facility] Text Comment: Exam revealed severe oropharyngeal dysphagia, with minimal to no productive lingual movement and absent pharyngeal swallow trigger. Patient is receiving his nutrition and medications through his PEG tube, but is motivated to have something to eat or drink. Recommend continue NPO status with PEG tube feedings. Recommend speech therapy for dysphagia treatment through the [facility], to be followed with repeat-MBSS post-treatment to evaluate for any improvement and potentially provide diet recommendations if appropriate. Patient would benefit from Neuro consult to investigate any underlying conditions which may be causing his dysphagia. Frequency/Duration: 2x weekly x 8 weeks Date Range for Service Requested: Timeline to reassess: 3 months Recommended Referrals: Neurology Patient Education Completed: Yes Patient/Caregiver Education: Described Results of Evaluation Patient expressed understanding of evaluation Family/Caregivers expressed understanding of results Comment: Comments/Barriers to Learning: It is important to note MBSS objective studies are snapshots in time and Patient function might vary with factors such as time of day or concomitant medical conditions. For this reason, the final treatment plan for this patient should rest with their medical care team. Additional recommendations should be considered with the totality of the Patient in mind. Thank for the opportunity to participate in the care of this patient. If you have any questions about the content of this report, please contact the Speech and Hearing Center at [facility]. Paperhanger Pipe Clinican/Clinical Fellow: No Supervisory Statement: N/A Speech Language Pathologist: Laura Hill M.A., CCC-LACE MENDER
--- NOTE | 2025-05-18 12:49 | MHC.SL.MBSTD ---
Referring provider: Sheryl Rodriguez NP Reason for Referral: Chronic dysphagia Type of Treatment: 63159 Modified Barium Swallow Study Date of Plan of Treatment: 05/13/25 Onset of Symptoms/Illness: 06/12/21 Date Treatment Started: 05/13/25 Medical Diagnosis: HIV Speech & Language Primary Diagnosis:R13.12 Oropharyngeal Phase Dysphagia Speech & Language Secondary Diagnosis: Comments: Patient is a 60 year old male referred for a modified barium swallow study (MBSS) by Sheryl Rodriguez NP from the Pulmonology office. Patient has extensive history of chronic dysphagia and has been seen by the speech team during multiple prior admissions at [facility] between 2201-6309. Patient did have an MBSS done previously in 2020, which showed good ability to protect the airway at the time and main deficit in the oral phase, with slow mastication and significant residue post-swallow. He was recommended a CHOPPED(NDD3) diet, but then downgraded after subsequent hospitalizations in 2022 to PUREED (NDD1) solids and NECTAR THICK liquids, to which he was reportedly noncompliant. With time, patient's swallow further declined and he no longer tolerated purees. A PEG tube was subsequently placed for feedings during a hospitalization in July 2023. To date, patient receives his nutrition and medication through the PEG. Patient was recently admitted to the hospital for acute hypoxic respiratory failure d/t aspiration pneumonia and chronic pulmonary embolism. Pertinent medical history includes asthma, HIV, substance abuse, PNA, adult FTT, Hepatitis C, fibromyalgia. Patient's GUEST SERVICES OFFICER was present and reports patient continues to have increasing difficulty swallowing, though he still tries to swallow soft foods such as mashed potatoes. She recalls patient having speech therapy in the past for his dysphagia and doing oral motor exercises. She notes that his swallow seemed to be better at the time, but has since declined. Medical History: Medical History Fibromyalgia Hepatitis C virus infection without hepatic coma Myalgia History of pulmonary embolism Lower urinary tract symptoms Hypogonadism in male Low serum cortisol level Adrenal hyperplasia Osteoporosis Height loss HIV (human immunodeficiency virus infection) Asthma Dysphagia Adult failure to thrive Adult failure to thrive Multiple rib fractures History of empyema of pleura (01/05/23) Hypertension Closed fracture of leg Hepatitis C Kidney stones Pleuritic chest pain Pneumonia Substance abuse Hemorrhoids Depression HIV (human immunodeficiency virus infection) Asthma Surgical History H/O hemorrhoidectomy Assessment Oral Motor Exam: Facial Symmetry: Symmetrical Mouth Occlusion: Normal Oral-Facial Smile (Lips) Description: Reduced ROM Tongue Size: Normal Tongue Excursion Description: Incomplete Tongue Range of Movement Description: Reduced Tongue Speed of Movement Description: Reduced Tongue Strength of Movement (against opposing pressure): Reduced Clinicial Observations: Patient was seated upright at 90 degrees for lateral view. He was given trace amounts of thin consistency and puree by spoon. Patient held bolus in anterior mouth. There was minimal to no lingual movement. Patient was verbally cued to swallow, but shook his head and indicated that he could not swallow. Patient did elicit a swallow on one occasion, but without transport of bolus from the oral cavity. On swallow, there was minimal laryngeal elevation, no anterior hyoid excursion, and partial epiglottic inversion. Contrast eventually spilled into the pharynx without productive lingual movement. Contrast collected in the valleculae and pyriforms. Patient was unable to elicit swallow to clear contrast from the pharynx. Exam was terminated due to patient's inability to initiate lingual movement or elicit a pharyngeal swallow trigger. Modified Barium Swallow Study: Oral Phase: Impaired Liquid Via Spoon, Puree ? Labial Seal: Intact ? A/P Transit: Impaired ? Lingual Movement: Impaired ? Rotary Mastication: Could Not Test ? Premature Spillage: Could Not Test ? Oral Residue: Could Not Test Pharyngeal Phase: Impaired Thin Liquid via Spoon, Puree ? Velopharyngeal Closure: Could Not Test ? Tongue Base Retraction: Impaired ? Laryngeal Excursion: Impaired ? Epiglottal Deflection: Impaired ? Pharyngeal Peristalsis: Could Not Test ? Valleculae Clearing: Impaired ? Pyriform Clearing: Impaired ? UES Opening: Could Not Test ? Penetration: Could Not Test ? Aspiration: Could Not Test Impressions and Recommendations Prognosis for Improvement: Poor Comment: Patient w/ declining swallow, would benefit from Neuro consult Recommendation for Speech Therapy: Speech Therapy through [facility] Text Comment: Exam revealed severe oropharyngeal dysphagia, with minimal to no productive lingual movement and absent pharyngeal swallow trigger. Patient is receiving his nutrition and medications through his PEG tube, but is motivated to have something to eat or drink. Recommend continue NPO status with PEG tube feedings. Recommend speech therapy for dysphagia treatment through the [facility], to be followed with repeat-MBSS post-treatment to evaluate for any improvement and potentially provide diet recommendations if appropriate. Patient would benefit from Neuro consult to investigate any underlying conditions which may be causing his dysphagia. Frequency/Duration: 2x weekly x 8 weeks Date Range for Service Requested: Timeline to reassess: 3 months Notes: Goal # : Patient will complete oral motor exercises to increase lingual range of motion, strength, and coordination with 90% effectiveness when provided with multi-modal cues. Goal Status: New Goal Goal# : Patient will be provided with thermal tactile stimulation to increase oral sensation in 10/10 trials. Goal Status: New Goal Goal # : Patient will elicit a volitional swallow/effortful swallow in 10/10 trials when provided with multi-modal cues. Goal Status: New Goal Goal # : Patient will tolerate 1/8 cup ice chips within 30 minutes, demonstrating the ability to elicit a swallow without overt s/s of aspiration in 100% of trials for pleasure. Goal Status: New Goal Recommended Referrals: Neurology Patient Education Completed: Yes Patient/Caregiver Education: Described Results of Evaluation Patient expressed understanding of evaluation Family/Caregivers expressed understanding of results Comment: Comments/Barriers to Learning: It is important to note MBSS objective studies are snapshots in time and Patient function might vary with factors such as time of day or concomitant medical conditions. For this reason, the final treatment plan for this patient should rest with their medical care team. Additional recommendations should be considered with the totality of the Patient in mind. Thank for the opportunity to participate in the care of this patient. If you have any questions about the content of this report, please contact the Speech [facility] Hearing [facility] at [facility]. Tent Assembler Clinican/Clinical Fellow: No Supervisory Statement: N/A Speech Language Pathologist: Laura Hill M.A., CCC-MILL SET UP
== END 2025-05-13 09:50 | disposition home or self-care (01) ==
LOC: HO.XRAY 09:49
PROVIDERS: Absent Provider Student in an Organized Health Care Education/Training Program; PCP Student in an Organized Health Care Education/Training Program; Visit Provider Nurse Practitioner Family
DX: Z00.00 Encounter for general adult medical examination without abnormal findings (principal); R13.12 Dysphagia, oropharyngeal phase; Z13.6 Encounter for screening for cardiovascular disorders; Z13.1 Encounter for screening for diabetes mellitus; Z11.59 Encounter for screening for other viral diseases
CPT/HCPCS: 36415; 74230; 80053; 80061; 82043; 82570; 83036; 84443; 85027; 86704; 86706; 86780; 86803; 87340; 87522; 92611; 96372; J3111

== ENCOUNTER → 2025-05-13 10:30 | Outpatient (BNV) | payer OTHER, SELFPAY | PROVIDERS: Absent Provider Student in an Organized Health Care Education/Training Program; PCP Student in an Organized Health Care Education/Training Program; Visit Provider Radiology Diagnostic Radiology | DX: R13.10 Dysphagia, unspecified (principal) | CPT/HCPCS: 74230 ==

== ENCOUNTER 2025-05-18 13:01 | Outpatient (REF) | payer OTHER, SELFPAY ==
--- NOTE | ~2025-05-18 | XR_ITS ---
EXAMINATION: XR CHEST 2 VIEWS HISTORY: Z87.01 - Personal history of pneumonia (recurrent) COMPARISON: Comparison is made with the prior examination dated 04/06/2025. FINDINGS: PA and lateral views of the chest are submitted. There is scarring at the left lung base. The lungs are otherwise clear. There are surgical clips on the left. There is no pleural effusion, pneumothorax, or pulmonary vascular congestion. The heart is normal in size. The bones are intact. XR/XR chest 2V IMPRESSION: No acute cardiopulmonary abnormality. Electronically signed by: Pepe Littlejohn MD 05/18/2025 01:50 PM EDT
--- OUTSIDE RECORDS SUMMARY | 2025-05-18 15:48 | XMS_ITS | Clinical Summary ---
Author Organization [facility] Address [address] [place] [address] Care Team Providers Care Conventional Underwriter Name Role Phone Zora Arce PA-C Primary [...] EC tabletIndications:H IV (human immunodeficiency virus infection) ([facility]) Take 1 Tab by mouth once [...] NUTRITION) liquidIndications:H IV (human immunodeficiency virus infection) ([facility]) Take 1 Can by mouth 3 (three) [...] 0.65 % nasal sprayIndications:As thma, intermittent, uncomplicated ([facility]) Place 1 [place] into the nostril(s) as needed for congestion. 60 mL 6 016 Active omeprazole (PRILOSEC) [address] capsuleIndications: Dyspepsia Take 1 Cap by mouth every morning before breakfast. Do not crush or chew. 30 Cap 3 016 Active albuterol sulfate hfa (PROAIR HFA) 90 mcg/actuation inhalerIndications: Asthma, intermittent, uncomplicated ([facility]) Inhale 2 Puffs into the lungs every 4 (four) hours as needed for shortness of breath. Int asthma 18 g 6 016 Active Active Problems Problem Noted Date Diagnosed Date Asthma, mild intermittent ([facility]) 05/06/2015 Fibromyalgia 01/27/2015 Generalized anxiety disorder 01/27/2015 Seizure disorder ([facility]) 01/27/2015 Major depressive disorder, r ecurrent, severe without psychotic features ([facility]) 01/27/2015 Overview (01/27/2015): Has therapist at [facility] HIV (human immunodeficiency virus infection) ([facility]) 01/27/2015 Chronic back pain 01/27/2015 Hepatitis C [...] Plan of Treatment Not on file Insurance [place] Member Subscriber Plan / Payer ([facility], 1928–1983tive 07/28/2015-Present) Name:Benjamin Fall Relation to Subscriber:Self Name:Benjamin Fall Payer ID:[id number] Group ID:Not on file Type:Medicaid Address: [address] DENTAL Member Subscriber Plan / Payer ([facility], 1928–1983tive 07/28/2015-Present) Name:Benjamin Fall Relation to Subscriber:Self Name:Benjamin Fall Payer ID:[id number] Group ID:Not on file Type:Other Address: [address] [place] [id number] Care Teams Conventional Underwriter Relationship Specialty Start Date End Date Zora Arce PA-C [address] [place] [address] PCP - General 11/05/18
== END 2025-05-18 13:02 | disposition home or self-care (01) ==
LOC: HO.XRAY 13:01
PROVIDERS: PCP Student in an Organized Health Care Education/Training Program; Visit Provider Nurse Practitioner Family
DX: J45.909 Unspecified asthma, uncomplicated (principal); I27.82 Chronic pulmonary embolism; R13.10 Dysphagia, unspecified; Z21 Asymptomatic human immunodeficiency virus [HIV] infection status; Z87.01 Personal history of pneumonia (recurrent); Z79.01 Long term (current) use of anticoagulants; Z87.891 Personal history of nicotine dependence
CPT/HCPCS: 71046; 99212

== ENCOUNTER 2025-05-18 13:01 | Outpatient (AMB) | payer OTHER, SELFPAY ==
--- NOTE | 2025-05-18 12:59 | A.OFFVIS_ITS ---
Vital Signs 05/18/25 13:03 Height 5 ft 6 in Weight 138 lb 14.259 oz BMI 22.4 BP 104/70 Blood Pressure Location Rt brachial Position Sitting Pulse 107 H Pulse Source Pulse Oximeter Pulse Oximetry (%) 94 Oxygen Delivery Method Room Air Intake Visit Reasons: Asthma Allergies Seasonal Allergies Allergy (Intermediate, Verified 05/18/25 13:06) Eye Drainage codeine (From Tylenol-Codeine #3) Allergy (Mild, Verified 05/18/25 13:06) Rash levofloxacin (From Levaquin) Allergy (Mild, Verified 05/18/25 13:06) Rash metoclopramide (From Reglan) Allergy (Mild, Verified 05/18/25 13:06) Rash acetaminophen (Tylenol-Codeine #3) Allergy (Unknown, Verified 05/18/25 13:06) Rash Penicillins (PENICILLINS) Allergy (Unknown, Verified 05/18/25 13:06) Rash ibuprofen (From Motrin) Adverse Reaction (Unknown, Verified 05/18/25 13:06) Reflux HPI HPI Asthma: Details: Benjamin is a pleasant 60 year old male, former minimal smoker, moderate persistent asthma, h/o chronic respiratory failure with hypoxia has home oxygen not currently using ([employer]), 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 He is accompanied by PATIENT CARE TECHNICIAN. Since the last visit, he had 6WMT and did not require supplemental oxygen however patient arrived at PCP office two weeks later for follow up hypoxic and sent to ED. He was admitted to [facility] 04/23-04/27 for acute hypoxic respiratory failure due to aspiration pneumonia and chronic pulmonary embolism. He was seen by infectious disease who recommended IV Zosyn and started on Eliquis for PE which will be maintained lifelong. Patient was seen by speech therapy who recommended patient should be NPO with intake of G-tube feeds only. Ultimately discharged home on 5 more days of Augmentin. At the last visit he was sent for MBSS and presents to review results today. [facility] Medical History Fibromyalgia Hepatitis C virus infection without hepatic coma Myalgia History of pulmonary embolism Lower urinary tract symptoms Hypogonadism in male Low serum cortisol level Adrenal hyperplasia Osteoporosis Height loss HIV (human immunodeficiency virus infection) Asthma Dysphagia Adult failure to thrive Adult failure to thrive Multiple rib fractures History of empyema of pleura (01/05/23) Hypertension Closed fracture of leg Hepatitis C Kidney stones Pleuritic chest pain Pneumonia Substance abuse Hemorrhoids Depression HIV (human immunodeficiency virus infection) Asthma Surgical History H/O hemorrhoidectomy Family History Maternal Grandmother Lung cancer Maternal Aunt Lung cancer Mother Lung cancer Social History Household Members: None Household Members Other:: lives alone Housing: Apartment Do you presently have visiting nurse or other home services: Yes (reports daily visiting nurses) Alcohol intake: never Patient Tobacco Use Status: Former Tobacco user Tobacco use type: Cigarette e-Cigarette/Vaping Use: Never Used Second Hand Smoke Exposure: No Substance Use Type: Crack/Cocaine Advance Directives Date on File: 04/25/21 service: No Current occupational status: disabled Current occupation: [employer] Gender identity: Male Review of Systems Const Denies chills, Denies excessive sweating, Reports fatigue, Denies fever(s), Denies headache(s), Denies night sweats and Reports weakness Eyes Denies dry eyes, Denies irritation and Denies itchy eyes ENT Reports Normal hearing present, Reports dysphagia, Denies headache(s), Denies nasal congestion, Denies nasal discharge and Denies post nasal drip Card Denies chest pain, Denies chest pain at rest, Denies chest pain with activity, Denies claudication, Denies leg edema, Denies orthopnea and Denies paroxysmal nocturnal dyspnea Resp Reports change in phlegm color, Denies chest congestion, Reports cough, Denies hemoptysis, Reports excessive phlegm production, Denies pain on inspiration, Denies pain with cough, Denies stridor and Denies wheezing GI Reports dysphagia Neuro Reports Normal hearing present, Denies headache(s) and Reports weakness Endo Denies excessive sweating and Reports fatigue Aller/Immun Denies itchy eyes, Denies seasonal rhinorrhea and Denies wheezing Physical Exam Vital Signs: Last Vital Signs Pulse 107 H 05/18/25 13:03 BP 104/70 05/18/25 13:03 Pulse Ox 94 05/18/25 13:03 Oxygen Delivery Method Room Air 05/18/25 13:03 BMI result Body Mass Index 22.4 Const General: cooperative, comfortable, no acute distress and alert Nutritional Appearance: thin Orientation/consciousness: patient oriented x3 HEENT Head: Yes normal to inspection, Yes normocephalic and Yes atraumatic Ears: hearing grossly normal bilaterally and external ears normal Eyes General: appearance normal, both eyes and all related structures Eyelids: Yes eyelids normal Sclerae: sclerae normal EOM: EOMs intact bilaterally Neck Neck: Yes normal visual inspection and Yes no lymphadenopathy Lymphatic: no lymphadenopathy noted Chest Chest palpation & inspection: normal inspection of the chest Resp Effort & Inspection: normal respiratory effort, able to speak in complete senten surekha, no audible wheezes, no cough, no stridor, not tachypneic, no tripod positioning and no use of accessory muscles Auscultation: clear to auscultation bilaterally Cardio Jugular venous distension: no JVD Rate: regular rate Rhythm: regular rhythm Skin Other: warm, dry General skin exam: no rashes or lesions noted Neuro General: patient oriented x3 Cranial nerves: Yes Normal hearing present Cognition (Neuro): normal cognition Gait exam (Neuro): Normal gait present Extrem General: Yes normal to inspection, Yes capillary refill normal, Yes no clubbing, cyanosis or edema and Yes no pedal edema Psych Appearance: grossly normal and well kempt Speech and movement: Normal speech and movement present and Clear speech present Affect: normal affect Attitude: cooperative Thought process: Normal thought process present Thought content: Normal thought content present Insight: Good insight present (Psych) Judgement: Good judgement present (Psych) Results Reviewed Results Reviewed: [address] [address] [address] Scan Report Signed Patient: Benjamin Fall MR#: [id number] : 1965 Acct:[id number] Age/Sex: 60 / M ADM Date: 04/23/25 Loc: HO.ED Attending Dr: Ordering Physician: Lavon Mukherjee MD Date of Service: 04/23/25 Procedure(s): CT angio chest PE protocol Accession Number(s): [id number] cc: Physician,Unknown ; Lavon Mukherjee MD~ Report Number: [id number]: Total DLP = 309.00 mGy-cm EXAMINATION: CT ANGIOGRAM CHEST CLINICAL INFORMATION: Reason for Exam-Dyspnea, hypoxia, hemoptysis R/O PE, TB COMPARISON: Chest radiograph on April 06, 2025. Chest CT on September 16, 2024 TECHNIQUE: Multiple axial images were obtained through the chest after the administration of 65 cc of Omnipaque 350 intravenous contrast. Extensive vascular post-processing including two-dimensional and three-dimensional reformatted images were created and reviewed on an independent workstation. This CT examination was performed using dose optimization techniques as appropriate, variously including the following: *Automated exposure control *Adjustment of mA and/or kV according to patient size (this includes techniques or standardized protocols for targeted exams where dose is matched to indication/reason for exam; i.e. extremities or head) *Use of iterative reconstruction technique FINDINGS: Pulmonary arteries: Main pulmonary artery is normal caliber measuring 2.8 cm. There are thin linear nonocclusive filling defects within the segmental/subsegmental branches of the right upper lobe (for example 8:43), right lower lobe (8:75), left upper lobe (19:57, 8:34) and left lower lobe (8:60). Device/tubes/lines: None Lungs: Somewhat triangular shaped consolidation involving the posterior aspect of the left lower lobe. Linear atelectasis/scarring in the left lung base. Dependent haziness throughout both lungs, probably due to underaeration. No cavitary lesions. Pleura: No pleural effusion or pneumothorax. Mediastinum: No obvious thyroid nodules. No cardiomegaly. No pericardial effusion. Small amount of fluid/debris is seen in the mid/distal aspect of the esophagus suggests gastroesophageal reflux. Lymph nodes: No bulky lymphadenopathy. Upper abdomen: Punctate calcifications in the right kidney. Chest Wall: Unremarkable. CT/CT angio chest PE protocol IMPRESSION: 1. Findings of nonocclusive segmental/subsegmental filling defects involving the right upper and lower lobes and left upper and lower lobes, with features that suggest chronic pulmonary embolism. No CT evidence of pulmonary hypertension. 2. Minor consolidation of the right lower lobe, most likely pneumonia. 3. No findings to suggest tuberculosis. Findings regarding presence of probably chronic pulmonary embolism communicated via secure message system to the ordering physician Dr. Mukherjee at the time of interpretation of this study, with prompt acknowledgment received. Electronically signed by: Maria Dolores Yancey MD 04/23/2025 03:36 PM EDT RP Dictated By: Maria Dolores Yancey MD Signed By: <Electronically signed by Maria Dolores Yancey MD in OV> 04/23/25 1536 DD/ 1333 TD/TT: 04/23/25 1445 User Experience Architect: Assessment & Plan Assessment & Plan (1) Chronic pulmonary embolism: Code(s): I27.82 - Chronic pulmonary embolism Category: Medical Qualifiers: Acute cor pulmonale presence: without acute cor pulmonale Pulmonary embolism type: unspecified Qualified Code(s): I27.82 - Chronic pulmonary embolism (2) Asthma: Code(s): J45.909 - Unspecified asthma, uncomplicated Category: Medical (3) Dysphagia: Code(s): R13.10 - Dysphagia, unspecified Category: Medical Qualifiers: Dysphagia type: unspecified Qualified Code(s): R13.10 - Dysphagia, unspecified (4) HIV (human immunodeficiency virus infection): Code(s): Z21 - Asymptomatic human immunodeficiency virus [HIV] infection status Category: Medical Qualifiers: HIV symptom status: unspecified Qualified Code(s): Z21 - Asymptomatic human immunodeficiency virus [HIV] infection status Plan Reviewed MBSS which could not be completed due to inability to swallow. Reviewed Speech therapy exam which revealed severe oropharyngeal dysphagia, with minimal to no productive lingual movement and absent pharyngeal swallow trigger. Recommendations to continue NPO status with PEG tube feedings, which he has been adhering to and continue speech therapy for dysphagia treatment. There was also a recommendation for a Neuro consult to investigate any underlying conditions which may be contributing to dysphagia. He is established with neurology encouraged to reach out to be evaluated sooner than September. At this time, patient denies any respiratory symptoms. Will obtain CXR to assess for improving PNA. Encouraged continued use of nebulized therapy and breathing exercises with the use of an incentive spirometer. Patient has supplemental oxygen at home using 2L NOC, awaiting overnight oximetry to be performed on room air. Advised patient to maintain oxygen saturation > 92%. Currently patient can maintain oxygen saturation >92% on room air with exertion. All questions were answered and patient is in agreement of plan. Will follow up in 6-8 weeks or sooner if needed. Orders: Orders XR chest 2V Today Z87.01 - Personal history of pneumonia (recurrent) Coding Level of Care Code Est Pt Level 4 (13739) Complex EM visit Add On G2211 Diagnoses Chronic pulmonary embolism I27.82 Acute cor pulmonale presence: without acute cor pulmonale Pulmonary embolism type: unspecified Asthma J45.909 Dysphagia R13.10 Dysphagia type: unspecified HIV infection, unspecified symptom status Z21 HIV symptom status: unspecified
[2025-05-18 13:03] VITALS: BP 104/70; PULSE 107; O2SAT 94; BMI 22.4
--- OUTSIDE RECORDS SUMMARY | 2025-05-18 15:11 | XMS_ITS | Encounter Summary ---
Author Organization [email or web address] Address [address] [place] [address] Care Team Providers Care Gridcap Machine Operator Name Role Phone Physician, Pcp Unknown Primary Care Provider Bina vailable Encounter Details Date Type Department Care Team (Late Contact Info) Description 03/09/2025 Lab Requisition [facility] [address] [facility] [email or web address] [address] MD [address] [place] [address] Candidal esophagitis (CMS/HCC V24, CMS/HCC V28) Social [...] Upcoming Encounters Date Type Department Care Team ([facility] Contact Info) Description 05/19/2025 9:30 AM EDT Office Visit Orthopedic [facility] [address] [phone] Kb Benitez DPM [address] [address] 07/07/2025 10:15 AM EDT Office Visit [facility] [address] [phone] Kb Benitez DPM [address] [address] documented as of this encounter Procedures Procedure Name Priority Date/Time Associated Diagnosis Comments CULTURE FUNGUS, OTHER THAN SKIN HAIR OR NAILS Routine 03/09/2025 12:00 AM EDT Candidal esophagitis ([facility] V24, [facility] V28) CULTURE MISCELLANEOUS Routine 03/09/2025 12:00 AM EDT Candidal esophagitis ([facility] V24, [facility] V28) CHLAMYDIA TRACHOMATIS AND NEISSERIA GONORRHOEAE PCR Routine 03/09/2025 12:00 AM EDT Candidal esophagitis ([facility] V24, [facility] V28) documented in this encounter Results * [...] [facility] [address] [place] [address], * (ABNORMAL) Culture miscellaneous (03/09/2025 12:00 AM [...] [facility] [address] [place] [address], * Chlamydia trachomatis and Neisseria gonorrhoeae molecular [...] MICROBIOLOGY - GENERA L ORDERABLES Final Result [facility] [address] [place] [address], documented in this encounter Visit Diagnoses Diagnosis Candidal esophagitis ([facility] V24, [facility] V28) Candidiasis of the esophagus documented in this encounter Care Teams Gridcap Machine Operator Relationship Specialty Start Date End Date Physician, Pcp Unknown PCP - General 03/10/25 documented as of this encounter
--- OUTSIDE RECORDS SUMMARY | 2025-05-18 15:11 | XMS_ITS | Clinical Summary ---
Author Organization [facility] Address [address] [address] Phone Care Team Providers Care Licensing Specialist Name Role Phone Gaetano Gibbons MD Primary Care Provider [phone] Social History Tobacco Use Types Packs/Day Years [...] 2014 INFLUENZA VACCINE (#1) 2025 COVID-19 VACCINE ( - 2023-2 5 season) 2025 RSV VACCINE (1 - [...] Medical Devices Not on file Care Teams Licensing Specialist Relationship Specialty Start Date End Date Gaetano Gibbons MD [address] [place] [address] [address], [address] [place] [address] [email or web address] PCP - General Family Medicine 07/02/23 Additional Source Comments The information contained in this document represents components of the legal health record. It is not the complete legal health record.[facility]
--- OUTSIDE RECORDS SUMMARY | 2025-05-18 15:11 | XMS_ITS | Clinical Summary ---
Author Organization 175 [facility] Address 175 [place] [address] Phone Care Team Providers Care Parts Cleaner Name Role Phone Physician, Pcp Unknown [...] Care Team Description 05/12/2025 Telephone Orthopedic Surgery [facility] [address] [phone] Kb Benitez DPM 05/05/2025 9:45 AM EDT Consult Orthopedic Surgery [facility] [address] [phone] Kb Benitez DPM Pain in toes of both feet (Primary Dx); Arthritis of both feet; Metatarsalgia of right foot; Onychogryphosis; Dermatophytosis, nail 03/10/[address] [facility] [address] [place] [address] MD Unspecified abnormal cytological findings in specimens from anus 03/09/[address] [facility] [address] [place] [address] MD Candidal esophagitis ([facility] V24, [facility] V28) from Last 3 Months Surgical History Surgery Date Site/Laterality Comments EYE SURGERY Left PROCEDURE: HISTORICAL EYE SURGERY OTHER SURGICAL HISTORY PROCEDURE: ---- OTHER ----; COMMENT: hemorrhoids Medical History Medical History Date Comments Seizures ([facility] V24, [facility] V28) 06/29/2016 DX:Seizures ([facility]); COMMENT: F/u with neuro at [place] Dr Costello HIV (human immunodeficiency virus infection) ([facility] V24, [facility] V28) 06/29/2016 DX:HIV (human im munodeficiency virus infection) ([facility]); COMMENT: HIV dx in 1991, f/u Dr. Street Depression 06/29/2016 DX:Depression Anxiety 06/29/2016 DX:Anxiety; COMM ENT: F/u [facility] Chronic back pain 06/29/2016 DX:Chronic nena [...] 9:30 AM EDT Office Visit Orthopedic Surgery [facility] [address] [phone] Kb Benitez DPM [address] [address] 07/07/2025 10:15 AM EDT Office Visit Orthopedic [facility] [address] [phone] Kb Benitez, DPWilmer [address] [address] Health Maintenance Due Date Last Done Comments [...] Routine 03/09/2025 12:00 AM EDT Candidal esophagitis ([facility] V24, [facility] V28) CULTURE MISCELLANEOUS Routine 03/09/2025 12:00 AM EDT Candidal esophagitis ([facility] V24, [facility] V28) CHLAMYDIA TRACHOMATIS AND NEISSERIA GONORRHOEAE PCR Routine 03/09/2025 12:00 AM EDT Candidal esophagitis ([facility] V24, [facility] V28) from Last 3 Months [...] [facility] [address] [place] [address], [place] [phone] * (ABNORMAL) Culture miscellaneous (03/09/2025 12:00 AM [...] L ORDERABLES Final Result Performing Organization Address City/[facility]/ZIP Co de Phone Number [facility] [address] [place] [address], [place] [phone] * Chlamydia trachomatis and Neisseria gonorrhoeae molecular [...] L ORDERABLES Final Result Performing Organization Address [facility] Co de Phone Number [facility] [address] [place] [address], [place] [phone] * Non-gynecologic cytology (03/09/2025 12:00 AM EDT) Final Diagnosis Specimen sent to [facility] for Anal cytology with HPV CoTest. Their interpretation is as follows: Anal, Rectum (ThinPrep): Satisfactory for Evaluation. Transformation zone components absent. Negative for Intraepithelial Lesion or Malignancy. Disclaimer This test has been modified from the extraction machine operator's instructions. Its performance characteristics were determined by [facility] in a manner consistent with CLIA requirements. This test has not been cleared or approved by the U.S. Food and Drug Administration Report signed electronically by: Qi Lehman M.D. on 16 Mar 2025 at 13:55 at [facility], [address] [place] [address] (CLIA [id number]) HPV Anal Detect/Genotyping, PCR: High Risk HPV [...] in the context of a [facility] Non-SINGLE ENDING MACHINE OPERATOR Cytology case; this result should be interpreted within the context of the Non-SINGLE ENDING MACHINE OPERATOR cytology report. Resulted 12 Mar 2025 at 17:00 by [facility], [address] [place] [address] (CLIA [id number]) Full report attached. 03/17/2025 2:31 PM EDT [facility] Disclaimer Unless otherwise specified, all tissue is 10% NB formalin fixed and paraffin embedded. Technical cytopathology services provided by [facility], at [address] [place] [address] (CLIA # [id number]/Angel Villalobos MD, Resident Buyer.) 03/17/2025 2:31 PM EDT [facility] Brushing/Spatula Anal structure / Unknown 03/09/2025 03/10/2025 9:22 AM EDT us [address] MD LAB CYTOLOGY ORDERABLES F inal Result [facility] [address] [place] [address], from Last 3 Months Insurance MEDICAID - [place] [employer] MEDICARE Member Subscriber Plan / Payer (Ef fective 2017-Present) Name:VICKIE GROVER Relation to Subscriber:Self Name:Vickie Fall Payer ID:[id number] Group ID:[id number] Type:Not on file Address: [address] [place] [address] Care Teams Parts Cleaner Relationship Specialty Start Date End Date Physician, Pcp Unknown PCP - General 03/10/25
--- OUTSIDE RECORDS SUMMARY | 2025-05-18 15:11 | XMS_ITS | Encounter Summary ---
Author Organization [facility] Address [address] [place] [address] Care Team Providers Care Community Relations Representative Name Role Phone Physician, Pcp Unknown Primary Care Provider Bina vailable Encounter Details Date Type Department Care Team ([facility] Contact Info) Description 03/10/2025 Lab Requisition [facility] 299 [facility] [place] [address] MD [address] [place] [address] Unspecified abnormal cytological findings in specimens from [...] Upcoming Encounters Date Type Department Care Team ([facility] Contact Info) Description 05/19/2025 9:30 AM EDT Office Visit Orthopedic [facility] [address] [phone] Kb Benitez DPM [address] [address] 07/07/2025 10:15 AM EDT Office Visit [facility] [address] [phone] Kb Benitez DPM [address] [address] documented as of this encounter Procedures Procedure [...] AM EDT) Final Diagnosis Specimen sent to [facility] for Anal cytology with HPV CoTest. Their interpretation is as follows: Anal, Rectum (ThinPrep): Satisfactory for Evaluation. Transformation zone components absent. Negative for Intraepithelial Lesion or Malignancy. Disclaimer This test has been modified from the annual giving director's instructions. Its performance characteristics were determined by [facility] in a manner consistent with CLIA requirements. This test has not been cleared or approved by the U.S. Food and Drug Administration Report signed electronically by: Qi Lehman M.D. on 16 Mar 2025 at 13:55 at [facility], [address] [place] [address] (CLIA [id number]) HPV Anal Detect/Genotyping, PCR: High Risk HPV [...] was ordered in the context of a [facility] Non-GIN POLE OPERATOR Cytology case; this result should be interpreted within the context of the Non-GIN POLE OPERATOR cytology report. Resulted 12 Mar 2025 at 17:00 by [facility], [address] [facility] (CLIA [id number]) Full report attached. 03/17/2025 2:31 PM EDT [facility] Disclaimer Unless otherwise specified, all tissue is 10% NB formalin fixed and paraffin embedded. Technical cytopathology services provided by [facility], at [address] [place] [address] (CLIA # [id number]/Angel Villalobos MD, Industrial Methods Consultant.) 03/17/2025 2:31 PM EDT [facility] Brushing/Spatula Anal structure / Unknown 03/09/2025 03/10/2025 9:22 AM EDT us [address] MD LAB CYTOLOGY ORDERABLES F inal Result [facility] [address] [place] [address], documented in this encounter Visit Diagnoses Diagnosis Unspecified abnormal cytological findings in specimens from anus documented in this encounter Care Teams Community Relations Representative Relationship Specialty Start Date End Date Physician, Pcp Unknown PCP - General 03/10/25 documented as of this encounter
== END 2025-05-18 13:32 | disposition home or self-care (01) ==
LOC: HO.HPS 13:02
PROVIDERS: PCP Student in an Organized Health Care Education/Training Program; Visit Provider Nurse Practitioner Family
DX: I27.82 Chronic pulmonary embolism (principal); J45.909 Unspecified asthma, uncomplicated; R13.10 Dysphagia, unspecified; Z21 Asymptomatic human immunodeficiency virus [HIV] infection status
CPT/HCPCS: 99214; G2211

== ENCOUNTER → 2025-05-18 13:39 | Outpatient (BNV) | payer OTHER, SELFPAY | PROVIDERS: PCP Student in an Organized Health Care Education/Training Program; Visit Provider Radiology Diagnostic Radiology | DX: Z87.01 Personal history of pneumonia (recurrent) (principal) | CPT/HCPCS: 71046 ==

== ENCOUNTER 2025-05-20 10:26 | Outpatient (REF) | payer OTHER, SELFPAY ==
--- OUTSIDE RECORDS SUMMARY | 2025-05-19 09:30 | XMS_ITS | Encounter Summary ---
Author Organization [facility] Address [address] [place] [address] Care Team Providers Care Curing Press Maintainer Name Role Phone Physician, Pcp Unknown Primary Care Provider Bina vailable Reason for Visit * Reason Comments Nail Problem 9 week fu * Consultation (Routine) - Closed Specialty Diagnoses / Procedures Referred By Sam bowling Referred To Contact Podiatry / Orthopaedic Surgery Diagnoses Onychogryphosis Terese Rivera MD [address] [place] [address] Phone: tel: fax: Kb Benitez DPM [address] [address] Phone: tel: fax: Referral ID Status Reason Start Date Expiration Date V isits Requested Visits Authorized [id number] Closed Specialty Services Required 02/23/2025 02/23/2026 1 1 Encounter Details Date Type Department Care Team (Late st Contact Info) Description 05/19/2025 9:30 AM EDT Office Visit Orthopedic Surgery - [place] [address] [phone] Kb Benitez DPM [address] [address] Pain in toes of both feet (Primary Dx); Metatarsalgia of right foot; Arthritis of both feet; Dermatophytosis, nail; Contracture, left foot Social History Tobacco Use Types Packs/Day Years [...] Progress Notes * Kb Benitez DPM - 05/19/2025 9:30 AM EDT Referring MD: Terese Rivera* Last PCP visit: 04/13/2025 IDENTIFIER: Juan David is a 60 y.o. year old male who presents for consultation. CC: Bilateral foot pain HPI: 60-year-old male seen back in the office for chief complaint of pain in bilateral great toes. Patient notes that after his nails were trimmed 2 months ago he started having severe pain in his digit. Patient is concerned that he has infection. Patient has multiple medical problems and is notbeen having some recent pain in the back of his heels as well ROS: GENERAL: Pt denies nausea, fever, vomiting, [...] have been marked as taking for the 05/19/25 encounter (Office Visit) with Kb Benitez DPM. ALLERGIES: Acetaminophen, Acetaminophen-codeine, [...] Sharp/dull sensation intact, protective sensation intact on [place] ORTHOPEDIC: Good muscle strength 5/5 of all flexors and extensors. Dorsi flexion of ankle ,10 degrees, plantar flexion WNL. No muscle atrophy. Increased load of the lateral column of the fifth bilateral feet with increased callus formations pain on palpation submetatarsal 5 position. Notable contracture of the posterior compartment of both in the hamstring with increased pain on palpation of the p osterior heel left greater than right DERMATOLOGICAL:.No masses or skin lesions noted. Normal skin temperature, normal skin turgor. Nailsare elongated dystrophic discolored x 10 with subungual debris BIOMECHANICS: STJ ROM wnl, MTJ ROM wnl, 1st MPJ ROM wnl. IMPRESSION: 1. Pain in toes of both feet 2. Metatarsalgia of right foot 3. Arthritis of both feet 4. Dermatophytosis, nail 5. Contracture, left foot PLAN: Pt was seen and examined, history reviewed. Patient was educated on metatarsalgia and the concepts pain in forefoot. Patient encouraged to use an offloading pad daily in order to limit pressure type pain to the area Patient is showing signs of contracture to the posterior compartment both in the hamstrings and thegastroc. This is causing him to put most of the pressure on the posterior heels rather than on the back of the legs when in a seated position. Patient understands that is causing deep tissue injury and pain to the posterior heel and he needs to offload the area with use of a pillow or straighteninghis legs during rest Patient has a multitude of arthritic changes of the midfoot. Patient was encouraged to use proper shoe gear and supportive insoles as well as topical analgesics to help with the pain associated with flareups in the midfoot Patient and guardian were educated that he does not have any signs clinically of infection to the great toes. Patient was recommended not to have his nail removed and to allow for the nail to grow out before making a decision. Patient understands that he needs to be sure that shoes are now pushing on the nails as they are thickened. Patient is on blood thinners and at risk for infection if the nail is removed. Risks outweigh the benefits at this time Kb Benitez DPM documented in this encounter Plan of Treatment Upcoming Encounters Date Type Department Care Team (Late st Contact Info) Description 07/07/2025 10:15 AM EDT Office Visit Orthopedic Surgery - [place] 250 175 [facility] [address] [place] [address] Kb Benitez, DPM 175 [facility] [address] [place] [address] documented as of this encounter Visit Diagnoses Diagnosis Pain in toes of both feet- Primary Metatarsalgia of right foot Arthritis of both feet Dermatophytosis, nail Dermatophytosis of nail Contracture, left foot documented in this encounter Care Teams Curing Press Maintainer Relationship Specialty Start Date End Date Physician, Pcp Unknown PCP - General 03/10/25 documented as of this encounter
[2025-05-20 12:01] LABS: Alanine Aminotransferase 153 U/L (0-40); Albumin Level 4.3 g/dL (3.5-5.0); Alkaline Phosphatase 52 U/L (39-117); Anion Gap 20 (12-20); Aspartate Amino Transferase 58 U/L (5-37); Blood Urea Nitrogen 8 mg/dL (9-16); Calcium 9.7 mg/dL (8.4-10.2); Carbon Dioxide 18 mmol/L (22-29); Chloride 107 mmol/L (96-108); Estimated Glomerular Filt Rate > 60; Potassium 3.8 mmol/L (3.3-5.1); Sodium 141 mmol/L (135-145); Total Protein 7.6 g/dL (6.5-8.0)
--- OUTSIDE RECORDS SUMMARY | 2025-05-20 12:40 | XMS_ITS | Clinical Summary ---
Author Organization [facility] Address [address] [address] Phone Care Team Providers Care Entertainment Lawyer Name Role Phone Gaetano Gibbons MD Primary Care Provider [phone] Social History Tobacco Use Types Packs/Day Years [...] Medical Devices Not on file Care Teams Entertainment Lawyer Relationship Specialty Start Date End Date Gaetano Gibbons MD [address] [place] [address] [address] [place] [address] [email or web address] PCP - General Family Medicine 07/02/23 Additional Source Comments The information contained in this document represents components of the legal health record. It is not the complete legal health record.[facility]
--- OUTSIDE RECORDS SUMMARY | 2025-05-20 12:40 | XMS_ITS | Encounter Summary ---
Author Organization [facility] Address [address] [place] [address] Care Team Providers Care Express Clerk Name Role Phone Physician, Pcp Unknown Primary Care Provider Bina vailable Encounter Details Date Type Department Care Team (Late Contact Info) Description 03/09/2025 Lab Requisition [facility] 299 [facility] [place] [place] [address] MD [address] [place] [address] Candidal esophagitis ([facility] V24, [facility] V28) Social History Tobacco Use Types Packs/Day [...] Upcoming Encounters Date Type Department Care Team ([facility] Contact Info) Description 07/07/2025 10:15 AM EDT Office Visit Orthopedic Surgery - [place] 250 175 [facility] [address] [place] [phone] Kb Benitez DPM [address] [address] documented as of this encounter Procedures Procedure Name Priority Date/Time Associated Diagnosis Comments CULTURE FUNGUS, OTHER THAN SKIN HAIR OR NAILS Routine 03/09/2025 12:00 AM EDT Candidal esophagitis ([facility] V24, [facility] V28) CULTURE MISCELLANEOUS Routine 03/09/2025 12:00 AM EDT Candidal esophagitis ([facility] V24, [facility] V28) CHLAMYDIA TRACHOMATIS AND NEISSERIA GONORRHOEAE PCR Routine 03/09/2025 12:00 AM EDT Candidal esophagitis ([facility] V24, [facility] V28) documented in this encounter Results * (ABNORMAL) Culture fungus, other than skin hair or nails (03/09/2025 12:00 AM EDT) Culture, Fungus Yulia albicans(A) GALEN 03/18/2025 8:09 AM EDT [facility] Comment: Edited result: Previously reported as Yeast on 03/16/2025 at 1407 EDT. Swab Oral cavity structure / Unknown 03/09/2025 03/09/2025 6:[address] MD LAB MICROBIOLOGY - GENERA L ORDERABLES Final Result [facility] [address] [place] [address], [place] [phone] * (ABNORMAL) Culture miscellaneous (03/09/2025 12:00 AM EDT) Miscellaneous Culture Yulia albicans/dubl iniensis(A) GALEN 03/12/2025 10:54 AM EDT [facility] Comment: Edited result: Previously reported as Yeast on 2025 at 1140 EDT. Miscellaneous Culture Klebsiella pneumoniae ssp pneumoniae(A) GALEN 03/12/2025 10:54 AM EDT [facility] Comment: The organism value for [...] MICROBIOLOGY - GENERA L ORDERABLES Final Result [facility] [address] [place] [address], * Chlamydia trachomatis and Neisseria gonorrhoeae molecular study (03/09/2025 12:00 AM EDT) Neisseria gonorrhoeae PCR Negative Negative LAB MOLECULAR DIAGNOSTICS METHOD 03/10/2025 8:49 AM EDT [facility] Chlamydia trachomatis PCR Negative Negative LAB MOLECULAR DIAGNOSTICS METHOD 03/10/2025 8:49 AM EDT [facility] Swab Rectum structure / Unknown 03/09/2025 03/09/2025 6:[address] MD LAB MICROBIOLOGY - GENERA L ORDERABLES Final Result Performing Organization Address City/[facility]/ZIP Co de Phone Number [facility] [address] [place], [place] [address] [phone] documented in this encounter Visit Diagnoses Diagnosis Candidal esophagitis ([facility] V24, [facility] V28) Candidiasis of the esophagus documented in this encounter Care Teams Express Clerk Relationship Specialty Start Date End Date Physician, Pcp Unknown PCP - General 03/10/25 documented as of this encounter
--- OUTSIDE RECORDS SUMMARY | 2025-05-20 12:40 | XMS_ITS | Encounter Summary ---
Author Organization [facility] Address [address] [place] [address] Care Team Providers Care Coil Strapper Name Role Phone Physician, Pcp Unknown Primary Care Provider Bina vailable Encounter Details Date Type Department Care Team ([facility] Contact Info) Description 03/10/[address] [facility] [address] [facility] [place] [address] MD [address] [place] [address] Unspecified abnormal cytological findings in specimens from [...] Upcoming Encounters Date Type Department Care Team ([facility] Contact Info) Description 07/07/2025 10:15 AM EDT Office Visit Orthopedic Surgery - [place] [address] [phone] Kb Benitez DPM [address] [address] documented as of this encounter Procedures Procedure [...] AM EDT) Final Diagnosis Specimen sent to [facility] for Anal cytology with HPV CoTest. Their interpretation is as follows: Anal, Rectum (ThinPrep): Satisfactory for Evaluation. Transformation zone components absent. Negative for Intraepithelial Lesion or Malignancy. Disclaimer This test has been modified from the telegraphic service dispatcher's instructions. Its performance characteristics were determined by [facility] in a manner consistent with CLIA requirements. This test has not been cleared or approved by the U.S. Food and Drug Administration Report signed electronically by: Qi Lehman M.D. on 16 Mar 2025 at 13:55 at [facility], [address] [facility] (CLIA [id number]) HPV Anal Detect/Genotyping, PCR: High Risk HPV [...] was ordered in the context of a [facility] Non-FLUXER Cytology case; this result should be interpreted within the context of the Non-FLUXER cytology report. Resulted 12 Mar 2025 at 17:00 by [facility], [address] [facility] (CLIA [id number]) Full report attached. 03/17/2025 2:31 PM EDT [facility] Disclaimer Unless otherwise specified, all tissue is 10% NB formalin fixed and paraffin embedded. Technical cytopathology services provided by [facility], at [address] [place] [address] (CLIA # [id number]/Angel Villalobos MD, Chassis Mechanic.) 03/17/2025 2:31 PM EDT [facility] Brushing/Spatula Anal structure / Unknown 03/09/2025 03/10/2025 9:22 AM EDT us [address] MD LAB CYTOLOGY ORDERABLES F inal Result [facility] [address] [place] [address], documented in this encounter Visit Diagnoses Diagnosis Unspecified abnormal cytological findings in specimens from anus documented in this encounter Care Teams Coil Strapper Relationship Specialty Start Date End Date Physician, Pcp Unknown PCP - General 03/10/25 documented as of this encounter
--- OUTSIDE RECORDS SUMMARY | 2025-05-20 12:40 | XMS_ITS | Clinical Summary ---
Author Organization 175 [facility] Address [address] [place] [address] Phone Care Team Providers Care Distillery Manager Name Role Phone Physician, Pcp Unknown Primary Care Provider Bina vailable Allergies Active Allergy Reactions Criticality Noted Date Comments Acetaminophen Unknown 05/05/2025 Acetaminophen-Codeine 06/29/2016 Other Reaction(s): Rash/Dermatitis Codeine Itching 01/27/2015 Cortisone 01/27/2015 Doxycycline Unknown 01/29/2018 doxycycline Ibuprofen Hives 08/15/2013 Motrin Levofloxacin Hives 05/05/2025 Metoclopramide Hives 08/15/2013 Reglan Oxycodone-Acetaminophen 01/27/2015 Penicillins Hives,Rash 06/29/2016 Regain Rash 06/29/2016 Sulfamethoxazole-Trimethoprim Rash 2014 Tramadol 01/27/2015 Medications No known medications Encounters Date Type Department Care Team Description 05/19/2025 9:30 AM EDT Office Visit Orthopedic Surgery [facility] [address] [phone] Kb Benitez A, DPM Pain in toes of both feet (Primary Dx); Metatarsalgia of right foot; Arthritis of both feet; Dermatophytosis, nail; Contracture, left foot 05/12/[address] [facility] [address] [phone] Kb Benitez, DPM 05/05/2025 9:45 AM EDT Consult Orthopedic Surgery [facility] [address] [phone] Kb Benitez A, DPM Pain in toes of both feet (Primary Dx); Arthritis of both feet; Metatarsalgia of right foot; Onychogryphosis; Dermatophytosis, nail 03/10/2025 Lab Requisition [facility] [address] [place] [address] MD Unspecified abnormal cytological findings in specimens from anus 03/09/2025 Lab Requisition [facility] [address] [place] [address] MD Candidal esophagitis ([facility] V24, [facility] V28) from Last 3 Months Surgical History Surgery Date Site/Laterality Comments EYE SURGERY Left PROCEDURE: HISTORICAL EYE SURGERY OTHER SURGICAL HISTORY PROCEDURE: ---- OTHER ----; COMMENT: hemorrhoids Medical History Medical History Date Comments Seizures ([facility] V24, [facility] V28) 06/29/2016 DX:Seizures ([facility]); COMMENT: F/u with neuro at [facility] HIV (human immunodeficiency virus infection) ([facility] V2, [facility] V28) 06/29/2016 DX:HIV (human im munodeficiency virus infection) ([facility]); COMMENT: HIV dx in 1991, f/u Dr. Street Depression 06/29/2016 DX:Depression Anxiety 06/29/2016 DX:Anxiety; COMM ENT: F/u [facility] Chronic back pain 06/29/2016 DX:Chronic [...] Upcoming Encounters Date Type Department Care Team ([facility] st Contact Info) Description 07/07/2025 10:15 AM EDT Office Visit Orthopedic Surgery - [place] [address] [place] [address] 250 [place] [address] Kb Benitez, DPM [address] [address] Health Maintenance Due Date Last Done Comments [...] Routine 03/09/2025 12:00 AM EDT Candidal esophagitis ([facility] V24, [facility] V28) CULTURE MISCELLANEOUS Routine 03/09/2025 12:00 AM EDT Candidal esophagitis ([facility] V24, [facility] V28) CHLAMYDIA TRACHOMATIS AND NEISSERIA GONORRHOEAE PCR Routine 03/09/2025 12:00 AM EDT Candidal esophagitis ([facility] V24, [facility] V28) from [...] Yulia albicans(A) GALEN 03/18/2025 8:09 AM EDT [facility] Comment: Edited result: Previously reported as Yeast on 03/16/2025 at 1407 EDT. Swab Oral cavity structure / Unknown 03/09/2025 03/09/2025 6:57 PM EDT us [address] MD LAB MICROBIOLOGY - GENERA L ORDERABLES Final Result [facility] [address] [place] [address], [place] [phone] * (ABNORMAL) Culture miscellaneous (03/09/2025 12:00 AM EDT) Miscellaneous Culture Yulia albicans/dubl iniensis(A) GALEN 03/12/2025 10:54 AM EDT [facility] Comment: Edited result: Previously reported as Yeast on 2025 at 1140 EDT. Miscellaneous Culture Klebsiella pneumoniae ssp pneumoniae(A) GALEN 03/12/2025 10:54 AM EDT [facility] Comment: The organism value [...] MICROBIOLOGY - GENERA L ORDERABLES Final Result [facility] [address] [place] [address], [place] [phone] * Chlamydia trachomatis and Neisseria gonorrhoeae molecular study (03/09/2025 12:00 AM EDT) Neisseria gonorrhoeae PCR Negative Negative LAB MOLECULAR DIAGNOSTICS METHOD 03/10/2025 8:49 AM EDT [facility] Chlamydia trachomatis PCR Negative Negative LAB MOLECULAR DIAGNOSTICS METHOD 03/10/2025 8:49 AM EDT [facility] Swab Rectum structure / Unknown 03/09/2025 03/09/2025 6:[address] MD LAB MICROBIOLOGY - GENERA L ORDERABLES Final Result Performing Organization Address City/[facility]/ZIP Co de Phone Number [facility] [address] [place] [address], [place] [phone] * Non-gynecologic cytology (03/09/2025 12:00 AM EDT) Final Diagnosis Specimen sent to [facility] for Anal cytology with HPV CoTest. Their interpretation is as follows: Anal, Rectum (ThinPrep): Satisfactory for Evaluation. Transformation zone components absent. Negative for Intraepithelial Lesion or Malignancy. Disclaimer This test has been modified from the reservations manager's instructions. Its performance characteristics were determined by [facility] in a manner consistent with CLIA requirements. This test has not been cleared or approved by the U.S. Food and Drug Administration Report signed electronically by: Qi Lehman M.D. on 16 Mar 2025 at 13:[address] [facility], [address] [place] [address] (CLIA [id number]) HPV Anal Detect/Genotyping, PCR: High Risk HPV [...] in the context of a [facility] Non-EYELETTER Cytology case; this result should be interpreted within the context of the Non-EYELETTER cytology report. Resulted 12 Mar 2025 at 17:[address] [facility], [address] [place] [address] (CLIA [id number]) Full report attached. 03/17/2025 2:31 PM EDT [facility] Disclaimer Unless otherwise specified, all tissue is 10% NB formalin fixed and paraffin embedded. Technical cytopathology services provided by [facility], at [address] [place] [address] (CLIA # [id number]/Angel Villalobos MD, Starcher And Tenter Range Feeder.) 03/17/2025 2:31 PM EDT [facility] Brushing/Spatula Anal structure / Unknown 03/09/2025 03/10/2025 9:[address] MD LAB CYTOLOGY ORDERABLES F inal Result [facility] [address] [place] [address], from Last 3 Months Insurance MEDICAID - [place] [employer] MEDICARE Member Subscriber Plan / Payer (Ef fective 2017-Present) Name:DUFFY VICKIE BLAS Relation to Subscriber:Self Name:Vickie Duffy Payer ID:[id number] Group ID:[id number] Type:Not on file Address: [address] [place] [address] Care Teams Distillery Manager Relationship Specialty Start Date End Date Physician, Pcp Unknown PCP - General 03/10/25
--- OUTSIDE RECORDS SUMMARY | 2025-05-20 12:41 | XMS_ITS | Clinical Summary ---
Author Organization [facility] Address [address] [place] [address] Care Team Providers Care Sail Repair Person Name Role Phone Zora Arce PA-C Primary Care Provider [phone] Source Comments PLEASE NOTE, if this patient [...] EC tabletIndications:H IV (human immunodeficiency virus infection) ([facility]) Take 1 Tab by mouth [...] NUTRITION) liquidIndications:H IV (human immunodeficiency virus infection) ([facility]) Take 1 Can by mouth [...] 0.65 % nasal sprayIndications:As thma, intermittent, uncomplicated ([facility]) Place 1 [place] into the nostril(s) as needed for congestion. 60 mL 6 016 Active omeprazole (PRILOSEC) [address] capsuleIndications: Dyspepsia Take 1 Cap by mouth every morning before breakfast. Do not crush or chew. 30 Cap 3 016 Active albuterol sulfate hfa (PROAIR HFA) 90 mcg/actuation inhalerIndications: Asthma, intermittent, uncomplicated ([facility]) Inhale 2 Puffs into the lungs every 4 (four) hours as needed for shortness of breath. Int asthma 18 g 6 016 Active Active Problems Problem Noted Date Diagnosed Date Asthma, mild intermittent ([facility]) 05/06/2015 Fibromyalgia 01/27/2015 Generalized anxiety disorder 01/27/2015 Seizure disorder ([facility]) 01/27/2015 Major depressive disorder, r ecurrent, severe without psychotic features ([facility]) 01/27/2015 Overview (01/27/2015): Has therapist at [facility] HIV (human immunodeficiency virus infection) ([facility]) 01/27/2015 Chronic back pain 01/27/2015 [...] MEDICAID DENTAL Member Subscriber Plan / [facility] Name:Benjamin Fall Relation to Subscriber:Self Name:Benjamin Fall Payer ID:[id number] Group ID:Not on file Type:Medicaid Address: [address] DENTAL Care Teams Sail Repair Person Relationship Specialty Start Date End Date Zora Arce PA-C [address] [place] [address] PCP - General 11/05/18
== END 2025-05-20 10:27 | disposition home or self-care (01) ==
LOC: HO.LAB 10:26
PROVIDERS: PCP Student in an Organized Health Care Education/Training Program; Visit Provider Student in an Organized Health Care Education/Training Program
DX: R79.89 Other specified abnormal findings of blood chemistry (principal)
CPT/HCPCS: 36415; 80053

== ENCOUNTER 2025-05-27 09:30 | Outpatient (REF) | payer OTHER, SELFPAY | END 2025-05-27 09:31 | disposition home or self-care (01) | LOC: HO.LAB 09:30 | PROVIDERS: PCP Student in an Organized Health Care Education/Training Program; Visit Provider Nurse Practitioner Family | DX: E29.1 Testicular hypofunction (principal); N39.43 Post-void dribbling; N39.41 Urge incontinence; R39.9 Unspecified symptoms and signs involving the genitourinary system; R39.14 Feeling of incomplete bladder emptying; Z13.89 Encounter for screening for other disorder | CPT/HCPCS: 51798; 81003; 88112; 99212 ==

== ENCOUNTER 2025-05-27 09:30 | Outpatient (AMB) | payer OTHER, SELFPAY ==
--- NOTE | 2025-05-27 09:49 | MHC.OFFVIS ---
Intake Visit Reasons: 2m/PVR Intake Note: Patient is present for 2M/PVR Urology Medication:TAMSULOSIN Antibiotic Allergy:LEVOFLOXACIN,PENICILLINS Blood Thinner:APIXABAN TODAY'S PVR:0ML'S Political Science Research Assistant Required: No Allergies Seasonal Allergies Allergy (Intermediate, Verified 05/27/25 10:44) Eye Drainage codeine (From Tylenol-Codeine #3) Allergy (Mild, Verified 05/27/25 10:44) Rash levofloxacin (From Levaquin) Allergy (Mild, Verified 05/27/25 10:44) Rash metoclopramide (From Reglan) Allergy (Mild, Verified 05/27/25 10:44) Rash acetaminophen (Tylenol-Codeine #3) Allergy (Unknown, Verified 05/27/25 10:44) Rash Penicillins (PENICILLINS) Allergy (Unknown, Verified 05/27/25 10:44) Rash ibuprofen (From Motrin) Adverse Reaction (Unknown, Verified 05/27/25 10:44) Reflux Medication List - Last Reconciled 05/27/25 by MIGUEL Mtz- albuterol sulfate 90 mcg/actuation (Ventolin HFA) 2 puffs inhalation Q6H PRN albuterol sulfate 2.5 mg inhalation Q4H PRN apixaban (Eliquis) 5 mg G-tube BID ascorbic acid (vitamin C) 250 mg feeding tube DAILY wylpaqxac-zjmmlqyn-hwmvpvg ala 50-200-25 mg (Biktarvy) 1 tab PO DAILY brimonidine-timolol 0.2-0.5 % (Combigan) 1 drp ophthalmic (eye) BID budesonide 0.25 mg (2 mL) inhalation BID 90 days calcium carbonate-vitamin D3 600 mg-20 mcg (800 unit) 1 tab feeding tube BID@1200,1800 cetirizine 10 mg feeding tube DAILY clonazepam 1 mg feeding tube DAILY clotrimazole 10 mg PO TID ferrous gluconate 324 mg feeding tube BID glycopyrrolate 1 mg PO TID megestrol 5 mL feeding tube DAILY mirtazapine 45 mg feeding tube BEDTIME montelukast 10 mg PO DAILY netarsudil-latanoprost 0.02-0.005 % (Rocklatan) 1 drp ophthalmic (eye) BEDTIME omeprazole 10 mg feeding tube DAILY@0630 PRN risperidone 3 mg feeding tube BEDTIME somatropin (Serostim) 6 mg subcut BEDTIME tadalafil (Cialis) 5 mg PO DAILY 90 days tolterodine ER 2 mg PO DAILY 30 days tramadol 50 mg feeding tube BID PRN HPI Comments Details: Benjamin is a pleasant 60-year-old Mongolian-speaking male patient of Dr.Ponce Keenan who was accompanied by his WEB SERVICES PROFESSIONAL worker at today's office visit. He has a past medical history of hypogonadism, adrenal hyperplasia, osteoporosis, dysphagia, failure to thrive, hypertension, hep C, nephrolithiasis, pneumonia, substance abuse, hemorrhoids, depression, HIV, and asthma. He presents to the office today for follow-up. In discussion with the patient today he continues to report urinary dribbling as well as episodes of urge incontinence typically in the morning. Previous workup has included a retroperitoneal ultrasound 03/04 notes the kidneys are normal in echotexture bilaterally. No hydronephrosis noted bilaterally. Right nephrolithiasis measuring up to 4 mm. Left Nephrolithiasis measuring up to 5 mm. The urinary bladder is unremarkable. The prostate measures 11 mL. No significant postvoid residual. Labs are as follows PSA: 12/01 0.4, 04/03 0.2 Testosterone: 09/02 282, 10/04 254, 12/02 317 FSH: 09/02 6.9, 12/02 8.4 LH: 09/02 3.4, 12/02 5.1 SHB/24 55, 11/04 36, 12/02 30.5 DHEA: 09/02 65, 10/04 41, 12/02 38 Free testosterone with a SHB/24 23.1, 10/04 30.2, 12/02 44.2 We discussed at length potential causes of urinary dribbling and importance of pelvic floor exercises to assist with urinary dribbling. In office urinalysis results reviewed with the patient and his WEB SERVICES PROFESSIONAL worker today. PVR 0 mL. He reports feeling Flomax has not been helpful. He denies nocturia, hematuria, dysuria, foul smelling urine, changes to urinary stream, flank pain, fever, and or chills. We discussed at length potential causes of lower urinary tract symptoms patient is experiencing as well as further treatment options and risks and benefits of these treatment options. We did discuss bladder triggers and irritants as patient does report to be drinking increased amounts of coffee daily. Information was again provided regarding pelvic floor exercises during last office visit and again during today's office visit. Patient also following up with endocrinology we did discuss trial of low-dose Cialis for bladder stability as well as increase in borderline low testosterone. All questions were answered. He otherwise offers no other issues or concerns at this time. [facility] Medical History Fibromyalgia Hepatitis C virus infection without hepatic coma Myalgia History of pulmonary embolism Lower urinary tract symptoms Hypogonadism in male Low serum cortisol level Adrenal hyperplasia Osteoporosis Height loss HIV (human immunodeficiency virus infection) Asthma Dysphagia Adult failure to thrive Adult failure to thrive Multiple rib fractures History of empyema of pleura (01/05/23) Hypertension Closed fracture of leg Hepatitis C Kidney stones Pleuritic chest pain Pneumonia Substance abuse Hemorrhoids Depression HIV (human immunodeficiency virus infection) Asthma Surgical History H/O hemorrhoidectomy Family History Maternal Grandmother Lung cancer Maternal Aunt Lung cancer Mother Lung cancer Social History Household Members: None Household Members Other:: lives alone Housing: Apartment Do you presently have visiting nurse or other home services: Yes (reports daily visiting nurses) Alcohol intake: never Patient Tobacco Use Status: Former Tobacco user Tobacco use type: Cigarette e-Cigarette/Vaping Use: Never Used Second Hand Smoke Exposure: No Substance Use Type: Crack/Cocaine Advance Directives Date on File: 04/25/21 service: No Current occupational status: disabled Current occupation: [employer] Gender identity: Male Review of Systems Eyes Reports no additional complaints ENT Reports no additional complaints Card Reports as per HPI Resp Reports as per HPI GI Reports as per HPI Reports as per HPI Neuro Reports as per HPI Psych Reports as per HPI Julius/Lymph Reports as per HPI Aller/Immun Reports as per HPI Physical Exam Const General: cooperative, comfortable, no acute distress, well developed, alert and awake Orientation/consciousness: oriented to person HEENT Head: Yes normal to inspection Eyes General: appearance normal, both eyes and all related structures Neck Neck: Yes normal visual inspection Chest Chest palpation & inspection: normal inspection of the chest Resp Effort & Inspection: normal respiratory effort and able to speak in complete sentences Cardio Rate: regular rate GI Other: G-tube present General: Yes no CVA tenderness Back/Spine/Pelvis Back: no CVA tenderness Skin General skin exam: no rashes or lesions noted Neuro General: oriented to person Extrem General: Yes normal to inspection Psych Appearance: well kempt Speech and movement: Clear speech present Affect: Other affect and mood findings present (flat affect) Attitude: cooperative Insight: Fair insight present (Psych) Judgement: Fair judgement present (Psych) Office Procedures Post Void Residual Post Residual Void Post Void Residual (PVR): 0 11132-Lwak Void Residual by ultrasound Results AMB Urinalysis, Automated UA Leukoctes 0 Dorys/uL Last Edit by Leila Truong CCM on 05/27/25 10:48 UA Nitrite Negative Last Edit by Leila Truong [facility] on 05/27/25 10:48 UA Urobilinogen 0.2 mg/dL Last Edit by Leila Truong [facility] on 05/27/25 10:48 UA Protein 0 mg/dL Last Edit by Leila Truong [facility] on 05/27/25 10:48 UA pH 7.0 Last Edit by Leila Truong [facility] on 05/27/25 10:48 UA Blood 10 Ralph/uL Last Edit by Leila Truong [facility] on 05/27/25 10:48 UA Specific [place] 1.010 Last Edit by Leila Truong [facility] on 05/27/25 10:48 UA Ketone Negative Last Edit by Leila Truong [facility] on 05/27/25 10:48 UA Bilirubin 0 mg/dL Last Edit by Leila Truong [facility] on 05/27/25 10:48 UA Glucose 0 mg/dL Last Edit by Leila Truong [facility] on 05/27/25 10:48 Assessment & Plan Assessment & Plan (1) Hypogonadism in male: Code(s): E29.1 - Testicular hypofunction Category: Medical (2) Lower urinary tract symptoms: Code(s): R39.9 - Unspecified symptoms and signs involving the genitourinary system Category: Medical (3) Feeling of incomplete bladder emptying: Code(s): R39.14 - Feeling of incomplete bladder emptying Category: Medical (4) Urinary dribbling: Code(s): N39.43 - Post-void dribbling Category: Medical (5) Urinary incontinence, urge: Code(s): N39.41 - Urge incontinence Category: Medical Plan In office urinalysis results reviewed with the patient today; as noted above. PVR 0 mL. We discussed potential causes lower urinary tract symptoms patient is experiencing. We discussed importance of timed/scheduled voiding. Stop Flomax. Start tolterodine Start Cialis 5 mg daily as discussed and prescribed We did discussed the importance of pelvic floor exercises to assist with urinary dribbling. We also discussed bladder triggers and irritants. Follow-up in 3 months with PVR in lab; or sooner with any issues, concerns, and or questions. Orders: Orders AMB Urinalysis Automated Today Z13.9 - Encounter for screening, unspecified Testosterone, Free/Total 3 Months E29.1 - Testicular hypofunction Urine Cytology Today R31.29 - Other microscopic hematuria Medications: New tolterodine ER 2 mg PO DAILY 30 caps 3RF 30 days R39.15 - Urgency of urination tadalafil (Cialis) [id number] [facility] [id number] Member [id number] 5 mg PO DAILY 90 tabs 1RF 90 days Patient Instructions: The patient had an opportunity to ask questions regarding the treatment plan. All questions were answered. Physical exam, labs, and imaging were discussed and reviewed in detail. As well as risks, benefits, and discussion of treatment choices. No major barriers to understanding were identified. The patient expressed understanding and agreement with the above treatment plan. The patient was made aware they should contact our office by phone for worsening of their current condition, the appearance of new symptoms, or with any questions or concerns. Compliance is encouraged with any medications and follow up testing that is ordered. It is a privilege to be allowed the opportunity to participate in? your urological care.? Again, if you have any questions or concerns If you have any questions or concerns please do not hesitate to contact me. The office is [phone]. This note is constructed using voice recognition software. While every effort has been made to ensure accuracy manufacturing weaver errors may have been included. Yours sincerely, Gina Brooks, TYPE CUTTER-BC Coding Level of Care Code Est Pt Level 4 (88477) Complex EM visit Add On G2211 Diagnoses Hypogonadism in male E29.1 Lower urinary tract symptoms R39.9 Feeling of incomplete bladder emptying R39.14 Urinary dribbling N39.43 Urinary incontinence, urge N39.41 CPT Codes Post Residual Void - PVR CPT Code: 45962-[id number] Void Residual by ultrasound ([id number])
--- OUTSIDE RECORDS SUMMARY | 2025-05-27 11:15 | XMS_ITS | Encounter Summary ---
Author Organization [email or web address] Address [address] [place] [address] Care Team Providers Care Ski Lift Attendant Name Role Phone Physician, Pcp Unknown Primary Care Provider Bina vailable Encounter Details Date Type Department Care Team ([facility] Contact Info) Description 03/10/2025 Lab Requisition [facility] - Main Lab [address] [facility] [place] [address] MD [address] [place] [address] Unspecified abnormal cytological findings in specimens from [...] Upcoming Encounters Date Type Department Care Team ([facility] Contact Info) Description 07/07/2025 10:15 AM EDT Office Visit Orthopedic Surgery - [place] [address] [phone] Kb Benitez DPM [address] [address] documented as of this encounter Procedures Procedure [...] AM EDT) Final Diagnosis Specimen sent to [facility] for Anal cytology with HPV CoTest. Their interpretation is as follows: Anal, Rectum (ThinPrep): Satisfactory for Evaluation. Transformation zone components absent. Negative for Intraepithelial Lesion or Malignancy. Disclaimer This test has been modified from the swine nutritionist's instructions. Its performance characteristics were determined by [facility] in a manner consistent with CLIA requirements. This test has not been cleared or approved by the U.S. Food and Drug Administration Report signed electronically by: Qi Lehman M.D. on 16 Mar 2025 at 13:55 at [facility], [address] [facility] (CLIA [id number]) HPV Anal Detect/Genotyping, PCR: High Risk HPV [...] was ordered in the context of a [facility] Non-HI TEACHER Cytology case; this result should be interpreted within the context of the Non-HI TEACHER cytology report. Resulted 12 Mar 2025 at 17:00 by [facility], [address] [facility] (CLIA [id number]) Full report attached. 03/17/2025 2:31 PM EDT [facility] Disclaimer Unless otherwise specified, all tissue is 10% NB formalin fixed and paraffin embedded. Technical cytopathology services provided by [facility], at [address] [place] [address] (CLIA # [id number]/Angel Villalobos MD, 4Th Grade Teacher.) 03/17/2025 2:31 PM EDT [facility] Brushing/Spatula Anal structure / Unknown 03/09/2025 03/10/2025 9:22 AM EDT us [address] MD LAB CYTOLOGY ORDERABLES F inal Result [facility] [address] [place] [address], documented in this encounter Visit Diagnoses Diagnosis Unspecified abnormal cytological findings in specimens from anus documented in this encounter Care Teams Ski Lift Attendant Relationship Specialty Start Date End Date Physician, Pcp Unknown PCP - General 03/10/25 documented as of this encounter
--- OUTSIDE RECORDS SUMMARY | 2025-05-27 11:15 | XMS_ITS | Clinical Summary ---
Author Organization [facility] Address [address] [place] [address] Care Team Providers Care Inclusion Special Educator Name Role Phone Zora Arce PA-C Primary Care Provider [phone] Source Comments PLEASE NOTE, if this patient [...] immunodeficiency virus infection) ([facility]) Take 1 Tab by mouth once daily. [...] immunodeficiency virus infection) ([facility]) Take 1 Can by mouth 3 [...] thma, intermittent, uncomplicated ([facility]) Place 1 [place] into the nostril(s) as needed for congestion. 60 mL 6 016 Active omeprazole (PRILOSEC) [address] capsuleIndications: Dyspepsia Take 1 Cap by mouth every morning before breakfast. Do not crush or chew. 30 Cap 3 016 Active albuterol sulfate hfa (PROAIR HFA) 90 mcg/actuation inhalerIndications: Asthma, intermittent, uncomplicated ([facility]) Inhale 2 Puffs into the lungs every 4 (four) hours as needed for shortness of breath. Int asthma 18 g 6 016 Active Active Problems Problem Noted Date Diagnosed Date Asthma, mild intermittent ([facility]) 05/06/2015 Fibromyalgia 01/27/2015 Generalized anxiety disorder 01/27/2015 Seizure disorder ([facility]) 01/27/2015 Major depressive disorder, r ecurrent, severe without psychotic features ([facility]) 01/27/2015 Overview (01/27/2015): Has therapist at [facility] HIV (human immunodeficiency virus infection) ([facility]) 01/27/2015 Chronic back pain 01/27/2015 Hepatitis [...] Plan of Treatment Not on file Insurance [place] Member Subscriber [facility] Name:Benjamin Fall Relation to Subscriber:Self Name:Benjamin Fall Payer ID:[id number] Group ID:Not on file Type:Medicaid Address: [address] DENTAL Member Subscriber [facility] / [facility]Present) Name:Benjamin Fall Relation to Subscriber:Self Name:Benjamin Fall Payer ID:[id number] Group ID:Not on file Type:Other Address: [address] [place] [address] Care Teams Inclusion Special Educator Relationship Specialty Start Date End Date Zora Arce PA-C [address] [place] [address] PCP - General 11/05/18
--- OUTSIDE RECORDS SUMMARY | 2025-05-27 11:15 | XMS_ITS | Encounter Summary ---
Author Organization [employer] Address [address] [place] [address] Care Team Providers Care Balance Staff Inspector Name Role Phone Physician, Pcp Unknown Primary Care Provider Bina vailable Encounter Details Date Type Department Care Team (Late Contact Info) Description 03/09/2025 Lab Requisition [facility] - Main Lab [address] [facility] [place] [address] MD [address] [place] [address] Candidal esophagitis ([facility] V24, [facility] V28) Social History Tobacco Use Types Packs/Day [...] Care Team ([facility] Contact Info) Description 07/07/2025 10:15 AM EDT Office Visit Orthopedic Surgery - [place] 250 [address] [facility] [address] [place] [phone] Kb Benitez DPM [address] [address] documented as of this encounter Procedures Procedure Name Priority Date/Time Associated Diagnosis Comments CULTURE FUNGUS, OTHER THAN SKIN HAIR OR NAILS Routine 03/09/2025 12:00 AM EDT Candidal esophagitis ([facility] V24, [facility] V28) CULTURE MISCELLANEOUS Routine 03/09/2025 12:00 AM EDT Candidal esophagitis ([facility] V24, [facility] V28) CHLAMYDIA TRACHOMATIS AND NEISSERIA GONORRHOEAE PCR Routine 03/09/2025 12:00 AM EDT Candidal esophagitis ([facility] V24, [facility] V28) documented in this encounter Results * (ABNORMAL) Culture fungus, other than skin hair or nails (03/09/2025 12:00 AM EDT) Culture, Fungus Yulia albicans(A) GALEN 03/18/2025 8:09 AM EDT [facility] Comment: Edited result: Previously reported as Yeast on 03/16/2025 at 1407 EDT. Swab Oral cavity structure / Unknown 03/09/2025 03/09/2025 6:[address] MD LAB MICROBIOLOGY - GENERA L ORDERABLES Final Result [facility] [address] [place] [address], [place] [phone] * (ABNORMAL) Culture miscellaneous (03/09/2025 12:00 AM EDT) Miscellaneous Culture Yulia albicans/dubl iniensis(A) GALEN 03/12/2025 10:54 AM EDT [facility] Comment: Edited result: Previously reported as Yeast on 2025 at 1140 EDT. Miscellaneous Culture Klebsiella pneumoniae ssp pneumoniae(A) GALEN 03/12/2025 10:54 AM EDT [facility] Comment: The organism value for [...] - GENERA L ORDERABLES Final Result [facility] [address] [place] [address], * Chlamydia trachomatis and Neisseria gonorrhoeae molecular study (03/09/2025 12:00 AM EDT) Neisseria gonorrhoeae PCR Negative Negative LAB MOLECULAR DIAGNOSTICS METHOD 03/10/2025 8:49 AM EDT [facility] Chlamydia trachomatis PCR Negative Negative LAB MOLECULAR DIAGNOSTICS METHOD 03/10/2025 8:49 AM EDT [facility] Swab Rectum structure / Unknown 03/09/2025 03/09/2025 6:[address] MD LAB MICROBIOLOGY - GENERA L ORDERABLES Final Result Performing Organization Address City/[facility]/ZIP Co de Phone Number [facility] [address] [place], [place] [address] [phone] documented in this encounter Visit Diagnoses Diagnosis Candidal esophagitis ([facility] V24, [facility] V28) Candidiasis of the esophagus documented in this encounter Care Teams Balance Staff Inspector Relationship Specialty Start Date End Date Physician, Pcp Unknown PCP - General 03/10/25 documented as of this encounter
--- OUTSIDE RECORDS SUMMARY | 2025-05-27 11:15 | XMS_ITS | Clinical Summary ---
Author Organization 175 [facility] Address 175 [place] [address] Phone Care Team Providers Care Banquet Chef Name Role Phone Physician, Pcp Unknown Primary [...] 9:30 AM EDT Office Visit Orthopedic Surgery [facility] [address] [phone] Kb Benitez A, DPM Pain in toes of both feet (Primary Dx); Metatarsalgia of right foot; Arthritis of both feet; Dermatophytosis, nail; Contracture, left foot 05/12/2025 Telephone Orthopedic Surgery [facility] [address] [phone] Kb Benitez, DPM 05/05/2025 9:45 AM EDT Consult Orthopedic Surgery [facility] [address] [phone] Kb Benitez A, DPM Pain in toes of both feet (Primary Dx); Arthritis of both feet; Metatarsalgia of right foot; Onychogryphosis; Dermatophytosis, nail 03/10/2025 Lab Requisition [facility] [address] [place] [address] MD Unspecified abnormal cytological findings in specimens from anus 03/09/2025 Lab Requisition [facility] Lab [address] [place] [address] MD Candidal esophagitis ([facility] V24, [facility] V28) from Last 3 Months Surgical History Surgery Date Site/Laterality Comments EYE SURGERY Left PROCEDURE: HISTORICAL EYE SURGERY OTHER SURGICAL HISTORY PROCEDURE: ---- OTHER ----; COMMENT: hemorrhoids Medical History Medical History Date Comments Seizures ([facility] V24, [facility] V28) 06/29/2016 DX:Seizures ([facility]); COMMENT: F/u with neuro at [place] Dr Costello HIV (human immunodeficiency virus infection) ([facility] V2, [facility] V28) 06/29/2016 DX:HIV (human im munodeficiency virus infection) ([facility]); COMMENT: HIV dx in 1991, f/u Dr. Street Depression 06/29/2016 DX:Depression Anxiety 06/29/2016 DX:Anxiety; COMM ENT: F/u [facility] Chronic back pain 06/29/2016 DX:Chronic nena [...] Upcoming Encounters Date Type Department Care Team ([facility] st Contact Info) Description 07/07/2025 10:15 AM EDT Office Visit Orthopedic Surgery - [place] [address] [place] [address] 250 [place] [address] Kb Benitez, DPM [address] [address] Health Maintenance Due Date Last Done Comments [...] Routine 03/09/2025 12:00 AM EDT Candidal esophagitis ([facility] V24, [facility] V28) CULTURE MISCELLANEOUS Routine 03/09/2025 12:00 AM EDT Candidal esophagitis ([facility] V24, [facility] V28) CHLAMYDIA TRACHOMATIS AND NEISSERIA GONORRHOEAE PCR Routine 03/09/2025 12:00 AM EDT Candidal esophagitis ([facility] V24, [facility] V28) from Last [...] Result [facility] [address] [place] [address], [place] [phone] * (ABNORMAL) Culture miscellaneous (03/09/2025 12:00 AM [...] Result [facility] [address] [place] [address], [place] [phone] * Chlamydia trachomatis and Neisseria gonorrhoeae molecular [...] L ORDERABLES Final Result Performing Organization Address City/[facility]/ZIP Co de Phone Number [facility] [address] [place] [address], [place] [phone] * Non-gynecologic cytology (03/09/2025 12:00 AM EDT) Final Diagnosis Specimen sent to [facility] for Anal cytology with HPV CoTest. Their interpretation is as follows: Anal, Rectum (ThinPrep): Satisfactory for Evaluation. Transformation zone components absent. Negative for Intraepithelial Lesion or Malignancy. Disclaimer This test has been modified from the dining service supervisor's instructions. Its performance characteristics were determined by [facility] in a manner consistent with CLIA requirements. This test has not been cleared or approved by the U.S. Food and Drug Administration Report signed electronically by: Qi Lehman M.D. on 16 Mar 2025 at 13:55 at [facility], [address] [place] [address] (CLIA [id number]) HPV Anal Detect/Genotyping, PCR: High Risk HPV [...] was ordered in the context of a [facility] Non-HEARING THERAPY TEACHER Cytology case; this result should be interpreted within the context of the Non-HEARING THERAPY TEACHER cytology report. Resulted 12 Mar 2025 at 17:00 by [facility], [address] [place] [address] (CLIA [id number]) Full report attached. 03/17/2025 2:31 PM EDT [facility] Disclaimer Unless otherwise specified, all tissue is 10% NB formalin fixed and paraffin embedded. Technical cytopathology services provided by [facility], at [address] [place] [address] (CLIA # [id number]/Angel Villalobos MD, Sketch Liner.) 03/17/2025 2:31 PM EDT [facility] Brushing/Spatula Anal structure / Unknown 03/09/2025 03/10/2025 9:[address] MD LAB CYTOLOGY ORDERABLES F inal Result [facility] [address] [place] [address], from Last 3 Months Insurance MEDICAID - [place] [employer] MEDICARE Member Subscriber Plan / Payer (Ef fective 2017-Present) Name:DUFFY VICKIE BLAS Relation to Subscriber:Self Name:Vickie Duffy Payer ID:[id number] Group ID:[id number] Type:Not on file Address: [address] [place] [address] Care Teams Banquet Chef Relationship Specialty Start Date End Date Physician, Pcp Unknown PCP - General 03/10/25
--- OUTSIDE RECORDS SUMMARY | 2025-05-27 11:15 | XMS_ITS | Clinical Summary ---
Author Organization [facility] Address [address] [address] Phone Care Team Providers Care Top Collar Maker Name Role Phone Gaetano Gibbons MD Primary Care Provider [phone] Social History Tobacco Use Types Packs/Day Years [...] Medical Devices Not on file Care Teams Top Collar Maker Relationship Specialty Start Date End Date Gaetano Gibbons MD [address] [place] [address] 204, [address] [place] [address] [email or web address] PCP - General Family Medicine 07/02/23 Additional Source Comments The information contained in this document represents components of the legal health record. It is not the complete legal health record.[facility]
== END 2025-05-27 10:37 | disposition home or self-care (01) ==
LOC: HO.HUSH 09:31
PROVIDERS: PCP Student in an Organized Health Care Education/Training Program; Visit Provider Nurse Practitioner Family
DX: E29.1 Testicular hypofunction (principal); R39.9 Unspecified symptoms and signs involving the genitourinary system; R39.14 Feeling of incomplete bladder emptying; N39.43 Post-void dribbling; N39.41 Urge incontinence; Z13.9 Encounter for screening, unspecified
CPT/HCPCS: 99214; G2211

== ENCOUNTER → 2025-06-03 07:46 | Outpatient (REF) | payer OTHER, SELFPAY ==
--- NOTE | 2025-06-03 07:49 | CA_ITS ---
Transthoracic Echocardiogram Patient (Last, First, Middle): Benjamin Fall, Gender: M Date of : 1965 Age: 60 Procedure Date: 06/03/2025 Procedure Type: Transthoracic Echocardiogram Location: OP Height: 167.64 cm Weight: 64.86 kg BSA: 1.73 m2 Heart Rate: bpm BP: 130 / 82 mmHg Skating Rink Ice Maker: TO Referring MD: Sheryl Rodriguez NP Software Project Lead: Melecio Jones MD Symptoms: Z21 - Asymptomatic human immunodeficiency virus [HIV] infection status Study Quality: Technically Difficult/No IV access ECG Rhythm: Sinus Conclusions: - 1. Mildly to moderately reduced LV ejection fraction 40-45% with grade 1 diastolic dysfunction 2. Cardiac valvular Dopplers within normal limits 3. No gross bradycardia effusion Findings Left Ventricle Normal left ventricular cavity size. There is normal left ventricular wall thickness. The left ventricular systolic function is mild to moderately decreased. The visually estimated ejection fraction is between 40-45%. Regional wall motion abnormalities can not be excluded due to suboptimal endocardial definition. Spectral Doppler is indicative of an impaired relaxation filling pattern. E/E prime ratio is <8, consistent with normal filling pressures. Evidence suggests grade I (mild) diastolic dysfunction. Right Ventricle Mildly increased right ventricular cavity size. There is normal right ventricular systolic function. Atria Both atria are normal in size. Interatrial shunt cannot be excluded. Aortic Valve Normal aortic valve structure and function. There is no aortic valve stenosis. There is no aortic valve regurgitation. Mitral Valve Likely normal mitral valve structure and function. There is trace mitral valve regurgitation. There is no mitral valve stenosis. Pulmonic Valve The pulmonic valve was not well visualized. Tricuspid Valve The tricuspid valve was not well visualized. Tricuspid regurgitation envelope is inadequate for calculation of right ventricular systolic pressure. Great Vessels All visible segments of the aorta are normal in size. The pulmonary artery was not well visualized. There is no dilatation of the ascending aorta measuring 3.40 cm. Venous The inferior vena cava is normal in size and collapses greater than 50% with inspiration. Pericardium/Pleural There is no evidence of pericardial effusion. Prior Study Comparison No significant change compared to prior study dated: 06/25/2023. Measurements 2D Linear Measurements IVSd: 0.96 0.6-0.9/0.6-1.0 cm LVIDd: 4.81 3.9-5.3/4.2-5.9 cm LVIDd Index: 2.78 2.4-3.2/2.2-3.1 cm/m2 LVIDs: 3.93 2.0-3.6 cm LVPWd: 0.80 0.7-1.1 cm LA Diam: 2.60 2.7-3.8/3.0-4.0 cm LAIDs Index: 1.50 1.5-2.3 cm/m2 LV Mass: 178.80 67-162/88-224 g LV Mass Index: 103.35 43-95/49-115 g/m2 LVOT Diam: 2.00 3.0+(-)1.3 cm Mitral Valve MV Pk E: 0.38 MV PK A: 0.66 MV Decel Time: 182.00 E/A: 0.60 E'Lateral: 6.42 E'Medial: 4.90 E/E' Med: 7.70 E/E' Lat: 5.90 PHT: 53.00 MVA PHT: 4.15 Decel Caswell: 2.08 Aortic Valve AoV Pk Shahid: 1.33 AoV Mn Shahid: 0.90 AoV VTI: 0.21 AoV Pk Grad: 7.00 Aov Mn Grad: 4.00 JIM Cont.VTI: 1.90 LVOT LVOT Pk Shahid: 0.86 LVOT Mn Shahid: 0.54 LVOT VTI: 0.13 LVOT Pk Grad: 3.00 LVOT Mn Grad: 1.00 LVOT Diam: 2.00 LVOT Area: 3.14 Diastolic Function MV Pk E: 0.38 MV Pk A: 0.66 E/A: 0.60 E'Medial: 4.90 E/E' Med: 7.70 E' Laterial: 6.42 E/E' Lat: 5.90 Right Ventricle TAPSE (mm): 14.60 TVS' Shahid: 8.81 Tricuspid Valve RA Press: 3.00 Great Vessels Aorta Sinus of Valsalva: 3.10 2.0-3.5 cm Ao Asc: 3.40 2.1-3.4 cm Updated in Other Vendor System with Status of Final Melecio Jones MD electronically signed on 06/03/2025 12:34:44 PM with status of Final
--- OUTSIDE RECORDS SUMMARY | 2025-06-03 07:49 | XMS_ITS | Encounter Summary ---
Author Organization [facility] Address [address] [place] [address] Care Team Providers Care Senior Manager Mergers & Acquisitions Name Role Phone Physician, Pcp Unknown Primary Care Provider Bina vailable Encounter Details Date Type Department Care Team (Late Contact Info) Description 03/09/2025 Lab Requisition [facility] 299 [facility] [place] [address] MD [address] [place] [address] Candidal esophagitis ([facility] V24, [facility] V28) Social History Tobacco Use [...] Upcoming Encounters Date Type Department Care Team ([facility] Contact Info) Description 07/07/2025 10:15 AM EDT Office Visit Orthopedic Surgery - [place] 250 175 [facility] [address] [place] [phone] Kb Benitez DPM [address] [address] documented as of this encounter Procedures Procedure Name Priority Date/Time Associated Diagnosis Comments CULTURE FUNGUS, OTHER THAN SKIN HAIR OR NAILS Routine 03/09/2025 12:00 AM EDT Candidal esophagitis ([facility] V24, [facility] V28) CULTURE MISCELLANEOUS Routine 03/09/2025 12:00 AM EDT Candidal esophagitis ([facility] V24, [facility] V28) CHLAMYDIA TRACHOMATIS AND NEISSERIA GONORRHOEAE PCR Routine 03/09/2025 12:00 AM EDT Candidal esophagitis ([facility] V24, [facility] V28) documented in this encounter Results * (ABNORMAL) Culture fungus, other than skin hair or nails (03/09/2025 12:00 AM EDT) Culture, Fungus Yulia albicans(A) GALEN 03/18/2025 8:[address] [facility] Comment: Edited result: Previously reported as Yeast on 03/16/2025 at 1407 EDT. Swab Oral cavity structure / Unknown 03/09/2025 03/09/2025 6:[address] MD LAB MICROBIOLOGY - GENERA L ORDERABLES Final Result [facility] [address] [place] [address], [place] [phone] * (ABNORMAL) Culture miscellaneous (03/09/2025 12:00 AM EDT) Miscellaneous Culture Yulia albicans/dubl iniensis(A) GALEN 03/12/2025 10:[address] [facility] Comment: Edited result: Previously reported as Yeast on 2025 at 1140 EDT. Miscellaneous Culture Klebsiella pneumoniae ssp pneumoniae(A) GALEN 03/12/2025 10:[address] [facility] Comment: The organism value for [...] MICROBIOLOGY - GENERA L ORDERABLES Final Result [facility] [address] [place] [address], * Chlamydia trachomatis and Neisseria gonorrhoeae molecular study (03/09/2025 12:00 AM EDT) Neisseria gonorrhoeae PCR Negative Negative LAB MOLECULAR DIAGNOSTICS METHOD 03/10/2025 8:[address] [facility] Chlamydia trachomatis PCR Negative Negative LAB MOLECULAR DIAGNOSTICS METHOD 03/10/2025 8:[address] [facility] Swab Rectum structure / Unknown 03/09/2025 03/09/2025 6:[address] MD LAB MICROBIOLOGY - GENERA L ORDERABLES Final Result Performing Organization Address City/[facility]/ZIP Co de Phone Number [facility] [address] [place], [place] [address] [phone] documented in this encounter Visit Diagnoses Diagnosis Candidal esophagitis ([facility] V24, [facility] V28) Candidiasis of the esophagus documented in this encounter Care Teams Senior Manager Mergers & Acquisitions Relationship Specialty Start Date End Date Physician, Pcp Unknown PCP - General 03/10/25 documented as of this encounter
--- OUTSIDE RECORDS SUMMARY | 2025-06-03 07:49 | XMS_ITS | Clinical Summary ---
Author Organization 175 [facility] Address [address] [place] [address] Phone Care Team Providers Care Pct Name Role Phone Physician, Pcp Unknown Primary [...] 9:30 AM EDT Office Visit Orthopedic Surgery [facility] [address] [phone] Kb Benitez A, DPM Pain in toes of both feet (Primary Dx); Metatarsalgia of right foot; Arthritis of both feet; Dermatophytosis, nail; Contracture, left foot 05/12/2025 Telephone Orthopedic Surgery [facility] [address] [phone] Kb Benitez, DPM 05/05/2025 9:45 AM EDT Consult Orthopedic Surgery [facility] [address] [phone] Kb Benitez A, DPM Pain in toes of both feet (Primary Dx); Arthritis of both feet; Metatarsalgia of right foot; Onychogryphosis; Dermatophytosis, nail 03/10/2025 Lab Requisition [facility] [address] [place] [address] MD Unspecified abnormal cytological findings in specimens from anus 03/09/2025 Lab Requisition [facility] [address] [place] [address] MD Candidal esophagitis ([facility], [facility] V28) from Last 3 Months Surgical History Surgery Date Site/Laterality Comments EYE SURGERY Left PROCEDURE: HISTORICAL EYE SURGERY OTHER SURGICAL HISTORY PROCEDURE: ---- OTHER ----; COMMENT: hemorrhoids Medical History Medical History Date Comments Seizures ([facility], [facility] V28) 06/29/2016 DX:Seizures ([facility]); COMMENT: F/u with neuro at [place] Dr Costello HIV (human immunodeficiency virus infection) ([facility] V2, [facility] V28) 06/29/2016 DX:HIV (human im munodeficiency virus infection) ([facility]); COMMENT: HIV dx in 1991, [...] Upcoming Encounters Date Type Department Care Team ([facility] st Contact Info) Description 07/07/2025 10:15 AM EDT Office Visit Orthopedic Surgery - [place] [address] [place] [address] 250 [place] [address] Kb Benitez, DPM [address] [address] Health Maintenance Due Date Last Done Comments [...] Routine 03/09/2025 12:00 AM EDT Candidal esophagitis ([facility] V24, [facility] V28) CULTURE MISCELLANEOUS Routine 03/09/2025 12:00 AM EDT Candidal esophagitis ([facility] V24, [facility] V28) CHLAMYDIA TRACHOMATIS AND NEISSERIA GONORRHOEAE PCR Routine 03/09/2025 12:00 AM EDT Candidal esophagitis ([facility] V24, [facility] V28) from Last 3 Months [...] Yulia albicans(A) GALEN 03/18/2025 8:09 AM EDT [facility] Comment: Edited result: Previously reported as Yeast on 03/16/2025 at 1407 EDT. Swab Oral cavity structure / Unknown 03/09/2025 03/09/2025 6:57 PM EDT us [address]iola [address] MD LAB MICROBIOLOGY - GENERA L ORDERABLES Final Result [facility] [address] [place] [address], [place] [phone] * (ABNORMAL) Culture miscellaneous (03/09/2025 12:00 AM EDT) Miscellaneous Culture Yulia albicans/dubl iniensis(A) GALEN 03/12/2025 10:54 AM EDT [facility] Comment: Edited result: Previously reported as Yeast on 2025 at 1140 EDT. Miscellaneous Culture Klebsiella pneumoniae ssp pneumoniae(A) GALEN 03/12/2025 10:54 AM EDT [facility] Comment: The organism value [...] MICROBIOLOGY - GENERA L ORDERABLES Final Result [facility] [address] [place] [address], [place] [phone] * Chlamydia trachomatis and Neisseria gonorrhoeae molecular study (03/09/2025 12:00 AM EDT) Neisseria gonorrhoeae PCR Negative Negative LAB MOLECULAR DIAGNOSTICS METHOD 03/10/2025 8:49 AM EDT [facility] Chlamydia trachomatis PCR Negative Negative LAB MOLECULAR DIAGNOSTICS METHOD 03/10/2025 8:49 AM EDT [facility] Swab Rectum structure / Unknown 03/09/2025 03/09/2025 6:[address] MD LAB MICROBIOLOGY - GENERA L ORDERABLES Final Result Performing Organization Address City/[facility]/ZIP Co de Phone Number [facility] [address] [place] [address], [place] [phone] * Non-gynecologic cytology (03/09/2025 12:00 AM EDT) Final Diagnosis Specimen sent to [facility] for Anal cytology with HPV CoTest. Their interpretation is as follows: Anal, Rectum (ThinPrep): Satisfactory for Evaluation. Transformation zone components absent. Negative for Intraepithelial Lesion or Malignancy. Disclaimer This test has been modified from the insurance claim approver's instructions. Its performance characteristics were determined by [facility] in a manner consistent with CLIA requirements. This test has not been cleared or approved by the U.S. Food and Drug Administration Report signed electronically by: Qi Lehman M.D. on 16 Mar 2025 at 13:55 at [facility], [address] [place] [address] (CLIA [id number]) HPV Anal Detect/Genotyping, PCR: High Risk HPV [...] was ordered in the context of a [facility] Non-VAULT INSTALLER Cytology case; this result should be interpreted within the context of the Non-VAULT INSTALLER cytology report. Resulted 12 Mar 2025 at 17:00 by [facility], [address] [place] [address] (CLIA [id number]) Full report attached. 03/17/2025 2:31 PM EDT [facility] Disclaimer Unless otherwise specified, all tissue is 10% NB formalin fixed and paraffin embedded. Technical cytopathology services provided by [facility], at [address] [place] [address] (CLIA # [id number]/Angel Villalobos MD, Tire Classifier.) 03/17/2025 2:31 PM EDT [facility] Brushing/Spatula Anal structure / Unknown 03/09/2025 03/10/2025 9:[address] MD LAB CYTOLOGY ORDERABLES F inal Result [facility] [address] [place] [address], from Last 3 Months Insurance MEDICAID - [place] [employer] MEDICARE Member Subscriber Plan / Payer (Ef fective 2017-Present) Name:DUFFY VICKIE BLAS Relation to Subscriber:Self Name:Vickie Duffy Payer ID:[id number] Group ID:[id number] Type:Not on file Address: [address] [place] [address] Care Teams Pct Relationship Specialty Start Date End Date Physician, Pcp Unknown PCP - General 03/10/25
--- OUTSIDE RECORDS SUMMARY | 2025-06-03 07:49 | XMS_ITS | Clinical Summary ---
Author Organization [facility] Address [address] [address] Phone Care Team Providers Care Blasting Entry Specialist Name Role Phone Gaetano Gibbons MD Primary Care Provider [phone] Social History Tobacco Use Types Packs/Day Years [...] Medical Devices Not on file Care Teams Blasting Entry Specialist Relationship Specialty Start Date End Date Gaetano Gibbons MD [address] [place] [address] 204, [address] [place] [address] [email or web address] PCP - General Family Medicine 07/02/23 Additional Source Comments The information contained in this document represents components of the legal health record. It is not the complete legal health record.[facility]
--- OUTSIDE RECORDS SUMMARY | 2025-06-03 07:49 | XMS_ITS | Data Portability ---
Author Organization LYNN WHITE MD [facility], Main Office Address [address] [place] [id number] Assessment No assessment recorded. Plan of Treatment Reminders Order Date Submit Date Provider Last Modified By Organization Details Last Modified Time Details Appointments B20 FOLLOW UP 2024 01:00P Wilmer Levin MD Not available Not available Not available Lab HPV DNA, high-ris k, anal [address], [address] [place] [address], [id number], 03/09/2025 16:00:58 pap, LB, anal [address], [address] [place] [address], [address], 03/09/2025 16:01:16 chlamydi a + gonorrhe a DNA panel, unspecif ied specimen [address], [address] [place] [address], [address], 03/09/2025 16:00:03 culture, throat [address], [address] [place] [address], [address], 03/09/2025 16:02:43 Referral None recorded . Procedures None recorded . Surgeries None recorded . Imaging None recorded . Medication Orders clotrima zole 10 mg klaudia 2024 025 [id number], [address] [place], [address], 04/13/2025 20:54:02 fluconaz ole 100 mg tablet 2024 025 [facility], [address] [place] [address], [address], 04/13/2025 20:54:03 Biktarvy 50 mg-200 mg-25 mg tablet 2024 025 [facility] [address] [place] [address], [address], 04/14/2025 17:57:16 clotrima zole 10 mg klaudia 2024 025 [facility] [address] [place] [address], [address], 03/09/2025 10:06:11 fluconaz ole 100 mg tablet 2024 025 [facility], [address] [place] [address], [address], 03/09/2025 10:06:10 Biktarvy 50 mg-200 mg-25 mg tablet 2024 025 [facility] [address] [place] [address], [address], 03/09/2025 13:04:37 clotrima zole 10 mg klaudia 2024 025 [facility], [address] [place] [address], [address], 12/30/2024 16:32:25 Biktarvy 50 mg-200 mg-25 mg tablet 2024 025 [facility], [address] [place] [address], [address], 12/30/2024 16:32:25 clotrima zole 10 mg klaudia 2024 025 [facility] [address] [place], [address], 11/25/2024 13:20:54 Benadryl 25 mg capsule 2024 025 [facility] [address] [place], [address], 11/25/2024 13:20:55 Biktarvy 50 mg-200 mg-25 mg tablet 2024 025 [facility], [address] [place], [address], 11/25/2024 13:20:54 clotrima zole 10 mg klaudia 2024 025 [facility] [address] [place], [address], 10/21/2024 14:29:45 Biktarvy 50 mg-200 mg-25 mg tablet 2024 025 [facility] [address] [place], [address], 10/21/2024 14:30:45 Patient TargetsNo targets recorded. Patient Instructions Encounter Date Encounter Id Patient Instructions Last Modified By Organization Details Last Modified Time 10/21/2024 [id number] Clotrimazole Oral Lozenge (CLOTRIMAZOLE LOZENGE - MUCOUS MEMBRANE (ORAL)) cmartorell Not available 10/21/2024 14:29:44 Reason for Referral None Reported. Results Created Date Observation Date Name Description Value Unit Range Abnormal Flag Note LastModifiedBy Organization Detail LastModifiedTime 03/09/20 25 03/09/2025 JENNIFER FREY S AND YASMEEN COULTER STUDY .note See Note Origi nal Order ing Provi carlito: DELGADO JORDON T MARTO CHRISTOPHER [facility] - [address] [facility], [place], [place] [id number] Not Available [facility] [address] [place], [address], 03/10/2025 08:50:56 03/09/20 25 03/09/2025 CHLAM YDIA TRACH OMATI S AND NEISS ERIA GONOR RHOEA E MOLEC ULAR STUDY neisseria gonorrhoeae PCR Negati ve negati ve Not Available [facility] [address] [place] [address], [address], 03/10/2025 08:50:56 03/09/20 25 03/09/2025 CHLAM YDIA TRACH OMATI S AND NEISS ERIA GONOR RHOEA E MOLEC ULAR STUDY chlamydia trachomatis PCR Negati ve negati ve Not Available [facility] [address] [place] [address], [address], 03/10/2025 08:50:56 03/09/20 25 03/09/2025 CULTU RE MISCE LLANE OUS .note See Note Origi nal Order ing Provi carlito: DELGADO TAYLORO CHRISTOPHER [facility] - [address] [place] [address], [place]willian annealessandro [place], [place] [address] Not Available [facility] [address] [place] [address], [address], 03/10/2025 11:21:36 03/09/20 25 03/09/2025 CULTU RE MISCE LLANE OUS miscellaneou s culture YEAST abnormal Yeast Not Available [facility] [address] [place] [address], [address], 03/10/2025 11:21:36 03/09/20 25 03/09/2025 CULTU RE MISCE LLANE OUS .note See Note Origi nal Order ing Provi carlito: DELGADO JORDON T MARTO CHRISTOPHER [facility] - [address] [place], [place] [address]willian [place] d, [place] [address] Not Available [facility] [address] [place] [address], [address], 03/10/2025 11:26:38 03/09/20 25 03/09/2025 CULTU RE MISCE LLANE OUS miscellaneou s culture YEAST abnormal Yeast Not Available [facility] [address] [place], [address], 03/10/2025 11:26:38 03/09/20 25 03/09/2025 CULTU RE MISCE LLANE OUS .note See Note Origi nal Order ing Provi carlito: DELGADO Rogel MARTO CHRISTOPHER [facility] - [address] [facility], [place], [facility] [place] [place] [address] Not Available [facility] [address] [place], [address], 03/10/2025 13:02:10 03/09/20 25 03/09/2025 CULTU RE MISCE LLANE OUS miscellaneou s culture YEAST abnormal Yeast Not Available [facility] [address] [place] [address], [address], 03/10/2025 13:02:10 03/09/20 25 03/09/2025 CULTU RE FUNGU S, OTHER THAN SKIN HAIR OR NAILS .note See Note Origi nal Order ing Provi carlito: DELGADO TAYLORO CHRISTOPHER [facility] - [address] [facility], [place], [facility] [place] [address] Not Available [facility] [address] [place] [address], [address], 03/16/2025 14:09:09 03/09/20 25 03/09/2025 CULTU RE FUNGU S, OTHER THAN SKIN HAIR OR NAILS culture, fungus YEAST abnormal Yeast Not Available [facility] [address] [place] [address], [address], 03/16/2025 14:09:09 03/09/20 25 03/09/2025 THINP REP CYTOL OGY WITH HPV, ANAL .note See Note Origi nal Order ing Provi carlito: DELGADO Rogel MARTO CHRISTOPHER [facility] - [address] [facility], [place], [place] [address] Not Available [facility] [address] [place] [address], [address], 03/17/2025 14:23:11 03/09/20 25 03/09/2025 THINP REP CYTOL OGY WITH HPV, ANAL scan result See Scanne d Result Not Available [facility] [address] [facility], [place], [address], 03/17/2025 14:23:11 03/09/20 25 03/09/2025 NON-G YNECO LOGIC CYTOL OGY .note See Note Origi nal Order ing Provi carlito: DELGADO IA T MARTO CHRISTOPHER [facility] - [address] [facility], [place] gfiel d, [place] [address] Not Available [facility] [address] [facility], [place], [address], 03/17/2025 14:32:10 03/09/20 25 03/09/2025 NON-G YNECO LOGIC CYTOL OGY final diagnosis Specim en sent to [facility] joey for Anal cytolo gy with HPV CoTest . Their interp retati on is as follow s: Anal, Rectu m (Thin Prep) : Satis facto ry for Evalu ation . Trans forma tion zone compo nents absen t. Negat marj for Intra epith elial Lesio n or Марина romero . Discl aimer This test has been modif ied from the manuf actur er's instr uctio ns. Its perfo rmanc e jurgen cteri stics were deter mined by [facility] c in a toribio r consi stent with CLIA requi remen ts. This test has not been clear ed or appro deborah by the U.S. Food and Drug Admin istra tion Repor t tamra d elect terry correia by: Qi judge M.D. on 16 Mar 2025 at 13:55 at [facility], [address], [place] (CLIA [id number] ) HPV Anal Detec t/Gen otypi ng, [...] ed in the diane xt of a [facility] Non-G YN Cytol ogy case; this resul t shoul d be inter prete d withi n the diane xt of the Non-G YN cytol ogy repor t. Resul lcuho 12 Mar 2025 at 17:00 by [facility], [address], [place] (CLIA [id number] ) Full repor t attac hed. Elect terry barboza d by Sintia wu MD on 025 at 2:31 PM Not Available [facility] [address] [place] [address], [address], 03/17/2025 14:32:10 03/09/20 25 03/09/2025 NON-G YNECO LOGIC CYTOL OGY disclaimer Unless otherw ise specif ied, all tissue is 10% NB formal in fixed and paraff in embedd ed. Techn ical cytop athol ogy servi surekha provi ded by Miguelina woods [facility], at [address], [place] [address] (CLIA # [id number] /Joe orourke MD, Medic al Direc tor.) Not Available [facility] [address] [place], [address], 03/17/2025 14:32:10 03/09/20 25 03/09/2025 CULTU RE FUNGU S, OTHER THAN SKIN HAIR OR NAILS .note See Note Origi nal Order ing Provi carlito: DELGADO SCHAEFFER CHRISTOPHER [facility] - [address] [facility], [place], [facility] [address] Not Available [facility] [address] [place], [address], 03/18/2025 08:10:44 03/09/20 25 03/09/2025 CULTU RE FUNGU S, OTHER THAN SKIN HAIR OR NAILS culture, fungus CANDID A ALBICA NS abnormal Julianna da albic ans Edite d resul t: Previ ously repor lucho as Yeast on 025 at 1407 EDT. Not Available [facility] [address] [place] [address], [address], 03/18/2025 08:10:44 Result Notes None recorded. 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 Human immunodefi ciency virus [HIV] disease; snomeddesc ription: Human immunodefi ciency virus infection; Report Immunity to Registry: Yes; Human immunodefi ciency virus infection; snomeddesc ription: Human immunodefi ciency virus infection; Report Immunity to Registry: Yes; Not Available [facility] 4 06:58:53 Anxiety 04081208 Active 1996 Anxiety; snomeddesc ription: Anxiety; Report Immunity to Registry: Yes; Not Available [facility] 4 06:58:54 Insomnia 280966883 Active 1996 Insomnia; Report Immunity to Registry: Yes; Not Available [facility] 4 06:58:57 Anxiety state 417548331 Active 1996 Anxiety state, unspecifie d; snomeddesc ription: Anxiety; Report Immunity to Registry: Yes; Not Available [facility] 4 06:58:57 Depressiv e disorder 41723179 Active 1996 Depressive disorder, not elsewhere classified ; snomeddesc ription: Depressive disorder; Report Immunity to Registry: Yes; Depressiv e disorder; snomeddesc ription: Depressive disorder; Report Immunity to Registry: Yes; Not Available [facility] 4 06:58:58 Arthritis 0678343 Active 1998 Arthritis; snomeddesc ription: Arthritis; Report Immunity to Registry: Yes; Notes: Osteoatrth ris multiple; Not Available [facility] 4 06:58:55 Arthropat hy 050036777 Active 1998 Arthropath y, unspecifie d, site unspecifie d; snomeddesc ription: Arthritis; Report Immunity to Registry: Yes; Notes: Osteoatrth ris multiple; Not Available [facility] 4 06:58:56 Sleep apnea 01045814 Active 1999 Sleep apnea; snomeddesc ription: Sleep apnea; Report Immunity to Registry: Yes; Unspecifi ed sleep apnea; snomeddesc ription: Sleep apnea; Report Immunity to Registry: Yes; Not Available [facility] 4 06:58:55 Seizure 35723750 Active 2000 Seizure; snomeddesc ription: Seizure; Report [...] Report Immunity to Registry: Yes; Not Available [facility] 4 06:58:58 Kidney stone 31435179 Active 2001 Calculus of kidney; snomeddesc ription: Kidney stone; Report Immunity to Registry: Yes; Kidney stone; snomeddesc ription: Kidney stone; Report Immunity to Registry: Yes; Not Available [facility] 4 06:58:54 History of calculus of kidney 758901936 Active 2001 History of calculus of kidney; snomeddesc ription: History of calculus of kidney; Report Immunity to Registry: Yes; Not Available [facility] 4 06:58:54 History of urinary stone 470125800 Active 2001 Personal history of urinary calculi; snomeddesc ription: History of calculus of kidney; Report Immunity to Registry: Yes; Not Available [facility] 4 06:58:56 Asthma 987529030 Active 2006 Asthma; snomeddesc ription: Asthma; Report Immunity to Registry: Yes; Asthma; Report Immunity to Registry: Yes; ReasonDate : 10/13/2019 ; ; Start Date : 10/13/2019 Asthma; snomeddesc ription: Asthma; Report Immunity to Registry: Yes; Not Available [facility] 4 06:58:53 Diarrhea 67568265 Active 2006 Diarrhea; snomeddesc ription: Diarrhea; Report Immunity to Registry: Yes; Diarrhea, unspecifie d; snomeddesc ription: Diarrhea; Report Immunity to Registry: Yes; Not Available [facility] 4 06:58:53 Substance abuse 74114884 Active 2006 Substance abuse; snomeddesc ription: Substance abuse; Report Immunity to Registry: Yes; Notes: opiate/suad jolene/benzo ; Not Available [facility] 4 06:58:53 Fibromyos itis 51129881 Active 2006 Myalgia and myositis, unspecifie d; snomeddesc ription: Fibromyalg ia; Report Immunity to Registry: Yes; Notes: Chronic pain multiple/c hronic back pain; Not Available [facility] 4 06:58:53 Type B viral hepatitis 55822207 Active 2006 Type B viral hepatitis; snomeddesc ription: Type B viral hepatitis; Report Immunity to Registry: Yes; Notes: core ab pos; s ag neg; s ab neg HBV vL nondetecte d 2016; 2017; Not Available [facility] 4 06:58:54 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 60144821 Active 2006 Other psychoacti ve substance abuse, uncomplica lucho; snomeddesc ription: Substance abuse; Report Immunity to Registry: Yes; Notes: opiate/suad jolene/benzo ; Not Available [facility] 4 06:58:55 Viral hepatitis B without hepatic coma 558473943 Active 2006 Unspecifie d viral hepatitis B without hepatic coma; snomeddesc ription: Type B viral hepatitis; Report Immunity to Registry: Yes; Notes: core ab pos; s ag neg; s ab neg HBV vL nondetecte d 2016; 2017; Not Available [facility] 4 06:58:55 Fibromyal mika 969036178 Active 2006 Fibromyalg ia; snomeddesc ription: Fibromyalg ia; Report Immunity to Registry: Yes; Notes: Chronic pain multiple/c hronic back pain; Not Available [facility] 4 06:58:56 Chronic hepatitis C 154091550 Active 2006 Chronic hepatitis C without mention [...] Notes: F0 2011; CC IL28; g1a EOT 10 s/p 24 weeks tx Ribapak 1200mg po qd and Sovaldi 24 weeks SVR 15 HCV VL neg 2015;2017; 12/2021 F2 ; Not Available [facility] 4 06:58:57 Steatotic liver disease 404079327 Active 2006 Steatosis of liver; snomeddesc ription: Steatosis of liver; Report Immunity to Registry: Yes; Notes: u/s 2021; Fatty (change of) liver, not elsewhere classified ; snomeddesc ription: Steatosis of liver; Report Immunity to Registry: Yes; Notes: u/s 2021; Not Available [facility] 4 06:58:53 Headache 00980757 Active 2008 Headache; snomeddesc ription: Headache; Report Immunity to Registry: Yes; Notes: migraine; Headache; snomeddesc ription: Headache; Report Immunity to Registry: Yes; Notes: migraine; Not Available [facility] 4 06:58:56 Herpesvir us infection 69019758 Active 2009 Herpesvira l infection, unspecifie d; snomeddesc ription: Herpes simplex; Report Immunity to Registry: Yes; Notes: HSV 1 pos serology; HSV 2 neg serology; Not Available [facility] 4 06:58:53 Herpes simplex 34075759 Active 2009 Herpes simplex; snomeddesc ription: Herpes simplex; Report Immunity to Registry: Yes; Notes: HSV 1 pos serology; HSV 2 neg serology; Not Available [facility] 4 06:58:54 Seasonal allergic rhinitis 638922846 Active 2012 Other seasonal allergic rhinitis; snomeddesc ription: Seasonal allergy; Report Immunity to Registry: Yes; Notes: hx nasal congestion ; Not Available [facility] 4 06:58:54 Blood chemistry outside reference range 940757216 Active 2012 Other specified abnormal findings of blood chemistry; snomeddesc ription: Decreased testostero ne level; Report Immunity to Registry: Yes; Notes: hypogoandi sm; Not Available [facility] 4 06:58:55 Testoster one level below reference range 106632891 Active 2012 Decreased testostero ne level; snomeddesc ription: Decreased testostero ne level; Report Immunity to Registry: Yes; Notes: hypogoandi sm; Not Available [facility] 4 06:58:57 Seasonal allergy 081833664 Active 2012 Seasonal allergy; snomeddesc ription: Seasonal allergy; Report Immunity to Registry: Yes; Notes: hx nasal congestion ; Not Available [facility] 4 06:58:58 Loss of appetite 78478516 Active 2012 Anorexia; snomeddesc ription: Loss of appetite; Report Immunity to Registry: Yes; Loss of appetite; snomeddesc ription: Loss of appetite; Report Immunity to Registry: Yes; Not Available [facility] 4 06:58:58 Male hypogonad ism 43507164 Active 2012 Male hypogonadi sm; snomeddesc ription: Male hypogonadi sm; Report Immunity to Registry: Yes; Not Available [facility] 4 06:58:53 Testicula r hypofunct ion 865813785 Active 2012 Other testicular hypofuncti on; snomeddesc ription: Male hypogonadi sm; Report Immunity to Registry: Yes; Not Available [facility] 4 06:58:54 Hyperplas ia of prostate 218040141 Active 2014 Hyperplasi a of prostate, unspecifie d, without urinary obstructio n and other lower urinary symptoms (LUTS); snomeddesc ription: Hyperplasi a of prostate; Report Immunity to Registry: Yes; Hyperplas ia of prostate; snomeddesc ription: Hyperplasi a of prostate; Report Immunity to Registry: Yes; Not Available [facility] 4 06:58:54 Hypertens marj disorder 42034719 Active 2017 Hypertensi ve disorder; snomeddesc ription: Hypertensi ve disorder; Report Immunity to Registry: Yes; Not Available [facility] 4 06:58:56 Essential hypertens ion 98919782 Active 2017 Essential (primary) hypertensi on; snomeddesc ription: Hypertensi ve disorder; Report Immunity to Registry: Yes; Not Available [facility] 4 06:58:57 Lyme disease 69940296 Active 2017 Lyme disease; Report Immunity to Registry: Yes; Notes: tx cefuroxime x14 d (hx all Doxy); Not Available [facility] 4 06:58:56 Onychomyc osis due to dermatoph yte 937415320 Active 2017 Tinea unguium; snomeddesc ription: Onychomyco sis; Report Immunity to Registry: Yes; Notes: feet digits; Not Available [facility] 4 06:58:55 Onychomyc osis 211707863 Active 2017 Onychomyco sis; snomeddesc ription: Onychomyco sis; Report Immunity to Registry: Yes; Notes: feet digits; Not Available [facility] 4 06:58:57 Problem Notes None recorded. Medical Equipment None Reported. Allergies Allergen ID Allergen Name Allergen Category Reaction Reaction Severity Criticality Documentation Date Start Date Code Code System Note Provider Name and Address Organization Details Recorded Time 1345 Product containin g penicilli n (product) medicatio n Not available Not available [facility] 04/13/2025 [id number] GRICELDA Levin MD [address] [place] [address] LYNN jack, [phone] , LYNN - CHERYL LEVIN MD [facility] 5 12:13:34 714 Reglan medicatio n Not available Not available Not available 10/31/20232012 9230 RxNorm Comme nt: adver se_ev ent_t ype: 65399 8002; ; Not Available [facility] 4 06:50:47 715 Motrin medicatio n Not available Not available Not available 10/31/2023201248 8 RxNorm Comme nt: adver se_ev ent_t ype: 60706 8002; ; Not Available [facility] 4 06:50:47 716 doxycycli ne Not available Not available Not available Not available 10/31/20232017 3640 RxNorm Comme nt: adver se_ev ent_t ype: 66253 8002; ; Not Available [facility] 4 06:50:47 Medications Name Sig [...] Available glycopyrr olate 1 mg tablet TOME 1 TABLETA POR [...] t Available fluconazo le 100 mg tablet TAKE 1 TABLET BY MOUTH EVERY DAY FOR 21 DAYS active Not Available Not Available No t Available clotrimaz ole 10 mg klaudia TAKE 1 TABLET BY MOUTH 3 TIMES A DAY FOR 30 DAYS FOR THRUSH. active Not Available Not Available [...] HORAS CUANDO SEA NECESARI O PARA EL DOLOR-LA LD POR 10 D active Not Available Not Available No t Available prednison e 10 mg tablet TAKE 1 TABLET VIA FEEDING TUBE EVERY DAY active Not Available Not Available No t Available gabapenti n 600 mg tablet TOME 1 TABLETA POR V A ORAL ITALO VECES AL D A active Not Available Not Available No t Available doxycycli ne hyclate 100 mg capsule TOME 1 C PSULA POR V A ORAL DOS VECES AL [...] (0.083 %) solution for nebulizat ion INHALE 1 VIAL EVERY 4 TO 6 HOURS NEEDED FOR SHORTNES S OF BREATH OR WHEEZING active Not Available Not Available No t [...] t Available azithromy sam 250 mg tablet TAKE TWO TABLETS THE FIRST DAY THEN 1 TABLET DAILY FOR 4 DAYS active Not Available Not Available No [...] 05/06 completed VACCINE_ IND: no; SU_FULL_ NAME: hCeryl Taylorsusan scales; Not Available Not Available Not [...] l; Not Available Not Available Not Available aspirin [...] POR V A ORAL CADA DOCE HORAS PARA DOLOR CATHY CUANDO SEA NECESARI [...] Not Available No t Available amoxicill in 400 mg-potass ium clavulana te 57 mg/5 mL oral suspensio n TOME 10ML POR V A ORAL DOS VECES AL [...] yordy; Not Available Not Available Not Available Imodium [...] 250 mg tablet TOME BAHMAN TABLETA POR VIA ORAL ONCE DAILY active Not Available Not [...] t Available mirtazapi ne 45 mg tablet TOME 1 TABLETA POR V A ORAL TODOS LOS D AL ACOSTARS E active Not Available Not Available No t Available diclofena c sodium 75 mg tablet,de [...] Available Liquid Nutrition oral 0 Quantity : 22075; Duration : 30; 0 refill(s ) 09/30 [...] )-vitamin D3 20 mcg (800 unit) tablet TOME BAHMAN TABLETA POR V A ORAL POR LA TARDE Y BAHMAN TABLETA POR LA NOCHE active Not Available Not Available No t Available AndroGel 1.62 % (20.25 mg/1.25 gram) transderm al gel packet 20.25 mg/1.25 g (1.62%) Quantity : 30; 0 refill(s ) 02/25 completed VACCINE_ IND: no; SU_FULL_ NAME: Cheryl scales; Not Available Not Available Not Available Clindamyc in Pediatric 75 mg/5 mL oral solution TAKE 20 ML EVERY 8 HOURS BY MOUTH FOR 7 DAYS. active Not Available Not Available No t Available Eliquis 5 mg tablet TAKE 1 TABLET VIA G-TUBE 2 TIMES A DAY active Not Available Not [...] Not Available Not Available Not Available Afluria 0516-2550 45 mcg (15 mcg x 3)/0.5 mL [...] Pneumoco ccal conjugat e PCV20, polysacc haride [id number] conjugat e, adjuvant , PF; Not Available Not Available Not Available Vitals Date Recorded Heart rate Body temperature Body weight Systolic And Diastolic Provider Name and Address Organization Details Last Updated DateTime 10/21/2024 98 /min 98.2 [degF] 90224.26 g 118/97 mm[Hg] Lexis LEVIN MD [facility] 10/21/2024 12:04:23 Date Recorded Body height Heart rate Respiratory rate Body mass index (BMI) Body weight Systolic And Diastolic Provider Name and Address Organization Details Last Updated DateTime 162.56 cm 81 /min 20 /min 24.9 kg/m2 43454.8 9 g 136/89 mm[Hg] Cheryl Levin MD [address] [place] [address], L[place], [phone], LYNN LEVIN MD [facility] 15:01:34 Date Recorded Heart rate Body mass index (BMI) Body weight Respiratory rate Systolic And Diastolic Provider Name and Address Organization Details Last Updated DateTime 12/30/2024 92 /min 26.1 kg/m2 67845.04 g 16 /min 108/83 mm[Hg] Cheryl Levin MD [address] [place] [address], [phone], LYNN LEVIN MD [facility] 16:33:39 Date Recorded Body height Provider Name an d Address Organization Details Last Updated DateTime 12/30/2024 162.56 cm Jany Delvalle LYNN LEVIN MD [facility] 12/30/2024 15:08:38 Date Recorded Body height Heart rate Respiratory rate Body temperature Body mass index (BMI) Body weight Systolic And Diastolic Provider Name and Address Organization Details Last Updated DateTime 162.56 cm 103 /min 18 /min 98.4 [degF] 25.1 kg/m2 50333.4 9 g 110/80 mm[Hg] Aleksandra LEVIN MD [facility] 11:09:16 Date Recorded Heart rate Respiratory rate Body temperature Body mass index (BMI) Body weight Systolic And Diastolic Provider Name and Address Organization Details Last Updated DateTime 89 /min 20 /min 98.1 [degF] 24.5 kg/m2 28820.7 1 g 118/83 mm[Hg] Lexis LEVIN MD [facility] 15:46:27 Date Recorded Body height Provider Name an d Address Organization Details Last Updated DateTime 04/13/2025 162.56 cm Freddy LEVIN MD [facility] 04/13/2025 11:36:06 Social History None recorded. Functional Status None [...] Time Meningococcal MCV4O 9 completed Not Available [facility] 10/31/2023 06:54:49 zoster live 9 completed Not Available [facility] 10/31/2023 06:54:50 Influenza, split virus, quadrivalent, preservative 9 completed Not Available [facility] 10/31/2023 06:54:50 Influenza, split virus, quadrivalent, preservative 8 completed Not Available [facility] 10/31/2023 06:54:50 Influenza, split virus, quadrivalent, preservative 0 completed Not Available [facility] 10/31/2023 06:54:50 Past Encounters Encounter ID Performer Location Encounter Start Date Encounter Closed Date Diagnosis/Indication Diagnosis SNOMED-CT Code Diagnosis ICD10 Code Diagnosis IMO Codes Diagnosis Note [id number] Cheryl Levin MD Main Office [address] [place] [address] 05/25/2023 09:48:40 06/27/2023 09:16:16 Human immunodeficiency virus infection 34324912 B20 HIV. Continue Biktarvy 1 tab po [...] [id number] Cheryl Levin MD Main Office [address] [place] [address] 08/24/2023 09:33:00 08/24/2023 10:46:09 Human immunodeficiency virus infection 34180866 B20 HIV. Continue Biktarvy 1 tab po [...] /Tivicay.s afe sex.labs Septemberlan of care reviewed [id number] Cheryl Levin MD Main Office [address] [place] [address] 11/12/2023 11:34:42 11/16/2023 15:00:47 Human immunodeficiency virus infection 86163299 B20 HIV.Contin ue Biktarvy 1 tab po qd.U=Upt aware of PreP availabili ty.condom use.plan of care reviewed Adult heal th examination 531224675 Z00.00 [id number] Cheryl Levin MD Main Office [address] [place] [address] 11/21/2023 10:59:43 11/23/2023 14:55:21 [id number] Cheryl Levin MD Main Office [address] [place] [address] 01/14/2024 09:27:39 01/16/2024 13:51:41 [id number] Cheryl Levin MD Main Office [address] [place] [address] 01/16/2024 10:24:39 01/16/2024 11:50:10 Human immunodeficiency virus infection 44627059 B20 HIV.Contin ue Biktarvy 1 tab po qd.U=Upt aware of PreP availabili ty.condom use.labs todayplan of care reviewed Candidiasis of mouth 797 18828 B37.0 nystatin 5cc po qid x 14 days. swish and spit.call with any side effects.ba cterial/fu ngal swab obtained. 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 [id number] Cheryl Levin MD Main Office [address] [place] [phone] 02/14/2024 12:00:04 02/14/2024 12:24:19 Human immunodeficiency virus infection 30869761 B20 HIV.Contin ue Biktarvy 1 tab po qd.U=Upt aware of PreP availabili ty.DoxyPEP reviewedco ndom use.labs todayplan of care reviewed Methicilli n resistant Staphylococcus aureus infection 784204173 A49.02 swab culture 01/2024 Candidiasi s of the esophagus 29441169 B37.81 sandy glabratafl uconazole 100mg po qd x 14 dayscall with any side effects. Weight loss 82272287 R63 .4 contributi ng factor sandy, MRSA, HIV among othermight benefit from Serostim.w ill review with himG tube [id number] Cheryl Levin MD Main Office [address] [place] [address] 02/21/2024 11:08:05 02/21/2024 12:09:56 Human immunodeficiency virus infection 90995206 B20 HIV.Contin ue Biktarvy 1 tab po qd.complia nce reviewedU= Upt aware of PreP availabili ty.DoxyPEP reviewedco ndom use.labs todayplan of care reviewed Candidiasi s of the esophagus 11089933 B37.81 sandy glabratato complete fluconazol e 100mg po bid x 14 days: (10mg/ml) 10ml by G tube bidcall with any side effects. Methicilli n resistant Staphylococcus aureus infection 573341661 A49.02 swab culture urr ently on Bactrim oral suspension (200mg- 40mg/5ml) since 02/15-20ml q 12 hrs G tube x 10 days Cachexia a ssociated with AIDS 662811342 B20 R64 weight loss. frail. progressin g.contribu ting factor sandy, MRSA, HIV among other. G tubeSerost im 6mg sq qd will be prescribed with the goal of helping w weight gain, increase muscle mass gain, and increase enduranceh e has visiting nurse who could assist with daily injections . [id number] Cheryl Levin MD Main Office [address] [facility] [place] [address] 02/25/2024 10:24:53 02/25/2024 11:09:27 Human immunodeficiency virus infection 20297358 B20 HIV.Contin ue Biktarvy 1 tab po qd.complia nce reviewedU= Ucondom use.labs todayplan of care reviewed Candidiasi s of the esophagus B37.81 sandy glabratawi ll continue fluconazol e 200 mg po qd x 14 days: (10mg/ml) 10ml by G tube QD;will on next appointmen t for further tx va suppressio n tx.call with any side effects. Cachexia a ssociated with AIDS 486346093 B20 R64 weight loss. frail. progressin g.approved Serostim 6mg sq qd; awaiting delivery to the office. will be prescribed with the goal of helping w weight gain, increase muscle mass gain, and increase enduranceh e has visiting nurse who could assist with daily injections .ensure tidmegace 625 mg qd. Methicilli n resistant Staphylococcus aureus infection 827993814 A49.02 swab culture 01/2024will complete 10 days of Bactrim oral suspension (200mg- 40mg/5ml) since 02/15-20ml q 12 hrs G tube on 02/27/24 [id number] Cheryl Levin MD Main Office [address] [facility] [place] [address] 03/14/2024 10:24:00 03/14/2024 10:29:25 Cachexia associated with AIDS 894854933 R64 B20 gained 2 pounds. probably improved sandy esophagiti s 2nd to inhaled steroids.S Tart Serostim 6mg s/c qd abdomen. first dose administer ed today. Tolerated well; goalis to increase weight, endurance and muscle massHe will have [employer]TER and nurse help with daily injections .potential side effects reviewed.t o call with any concernshe will curing pickling packer Megace today, and start it as well(G tube) qd to increase apetitte Human immunodeficiency virus infection 31289722 B20 HIV.Contin ue Biktarvy 1 tab po qd.complia nce reviewed Candidiasi s of the esophagus B37.81 sandy glabratawi ll continue 2 more weeks of fluconazol e 200 mg po qd x 14 days: (10mg/ml) 10ml by G tube QD;might benefit from qw suppressio n tx.call with any side effects. [id number] Cheryl Levin MD Main Office [address] [place] [address] 04/18/2024 09:52:00 04/18/2024 11:19:01 Cachexia associated with AIDS 973524043 R64 B20 124 lbs. gained weightcont inue Serostim 6mg s/c qd abdomen. goalis to increase weight, endurance and muscle masscontin ue Megace G tube qdCNA and nurse helping with compliance and tx.potenti al side effects reviewed.t o call with any concerns Human immunodeficiency virus infection 45140983 B20 HIV.Contin ue Biktarvy 1 tab po qd.compljorodn copelande reviewedla bs today Candidiasi s of the esophagus 65671057 B37.81 sandy glabratawi ll continue fluconazol e 200 (10ml) mg G tube qw for suppressio n tx.call with any side effects. Aspiration pneumonia 422 411388 J69.0 get discharge summaryon antibiotic ;eat standing or sitting; [place] [id number] Cheryl Levin MD Main Office [address] [place] [address] 05/20/2024 10:17:53 05/20/2024 12:44:49 Cachexia associated with AIDS 235465749 R64 B20 continue Serostim 6mg s/c qd abdomen. goal is to increase weight, endurance and muscle masscontin ue Megace G tube qd 5cc qdCNA and nurse helping with compliance and tx.potenti al side effects reviewed.t o call with any concerns Human immunodeficiency virus infection 26442551 B20 HIV.Contin ue Biktarvy 1 tab po qd.padmini hoffman reviewedla bs today Candidiasi s of the esophagus 18410621 B37.81 sandy glabrataho ld fluconazol e for nowSTART 1 tab po bid x 21 says for esophageal sandy glabrata.c all with any side effects. [id number] Cheryl Levin MD Main Office [address] [place] [address] 06/18/2024 10:10:09 06/18/2024 11:12:33 Cachexia associated with AIDS 660189040 R64 B20 continue Serostim 6mg s/c qd abdomen. goal is to increase weight, endurance and muscle massCNA and nurse helping with compliance and tx.megace on holdpotent ial side effects reviewed.t o call with any concerns Human immunodeficiency virus infection 50227094 B20 HIV.Contin ue Biktarvy 1 tab po qd.padmini hoffman reviewedla bs today Inflammato ry disease of liver 705895662 K75.9 Suspect 2nd to concomitan t medication s. ongoingdo not re-start fluconazol e nor megacenega tive infectious and non-infect ious workupto call or ER if jaundice, abd pain, n/v/d marce huertas History of calculus of kidney 228844445 Z87.442 u/s 05/[address] scan 02/2024hydr ation Aspiration pneumonia 422 116863 J69.0 s/p aspiration on CT AngioNPO per instructio n given to him in hospital; nutrition by G tubes/p (ceftriaxo ne,Azithro ,Flagyl while in Hospital;d ischarged on azithro and cefpodoxim e x 3 days which he completed. leg elevationa void sedating meds as much as possible Deep venou s thrombosis of lower extremity 607661124 I82.409 left lower extremity doppler showed DVT of gastrocnem ius vein;on tx w w Eliquis bid . Pulmonary embolism [address] Angio was positive for Acute lobar PEs/p heparin; ongoing Eliquis bidmed list reviewed.n o drug use for years. not on maintenanc e tx.denies current ETOH use. [id number] Cheryl Levin MD Main Office [address] [facility] [place] [address] 07/15/2024 15:10:10 07/15/2024 15:45:30 Cachexia associated with AIDS 379196702 R64 B20 continue Serostim 6mg s/c qd abdomen. goal is to increase weight, endurance and muscle masspotent ial side effects reviewed.t o call with any concerns Human immunodeficiency virus infection 04597934 B20 HIV.Contin ue Biktarvy 1 tab po qd.padmini hoffman reviewedla bs Candidiasi s of the esophagus 05553707 B37.81 on clotrimazo le. swish and spit qd Medication monitoring 39 9155249 Z51.81 [id number] Cheryl Levin MD Main Office [address] [place] [address] 10/21/2024 12:22:54 10/21/2024 16:48:51 Cachexia associated with AIDS 243251360 R64 B20 improvedco ntinue Serostim 6mg s/c qd abdomen. goal is to increase weight, endurance and muscle masspotent ial side effects reviewed.m ay start decreasing dose in 1-2 months if further weight gainon Boost protein shakesto call with any concerns Human immunodeficiency virus infection 15534510 B20 HIV.Contin ue Biktarvy 1 tab po qd.complia nce reviewedla bs Candidiasi s of the esophagus B37.81 on clotrimazo le. swish and spit qd/BID PRN [id number] Cheryl Levin MD Main Office [address] [facility] [place] [address] 11/25/2024 11:48:55 11/25/2024 14:20:54 Cachexia associated with AIDS 511808477 R64 B20 improvedco ntinue Serostim 6mg s/c [...] with any concerns Human immunodeficiency virus infection 61953017 B20 HIV.Contin ue Biktarvy 1 tab po qd.complia nce reviewedla bs Candidiasi s of the esophagus B37.81 off/on; recurrento n clotrimazo le. swish and spit qd/BID PRN for suppressio n Insomnia 396607321 G47.0 0 benadryl capsules requested by patient forinsomni a and itchiness as needed.cor rect use reviewed. [id number] Cheryl Levin MD Main Office [address] [facility] [place] [address] 12/30/2024 15:04:38 12/31/2024 09:52:40 Cachexia associated with AIDS 723562237 R64 B20 improvedco ntinue Serostim 6mg s/c [...] with any concerns Human immunodeficiency virus infection 35465421 B20 HIV.Contin ue Biktarvy 1 tab po qd.complia nce reviewedla bs Candidiasi s of the esophagus 7.81 off/on; recurrento n clotrimazo le. swish and spit /BID/TID PRN for suppressio n [id number] Cheryl Levin MD Main Office [address] [facility] [place] [address] 03/09/2025 09:16:22 03/09/2025 10:12:30 Cachexia associated with AIDS 312542199 R64 B20 stable/imp roved.cont inue Serostim 6mg s/c qd abdomen. goal is to increase weight, endurance and muscle masspotent ial side effects reviewed.o n Boost protein shakescont inue megace; plan to stop in the next 2-3 monthsto call with any concerns Human immunodeficiency virus infection 48279658 B20 HIV.Contin ue Biktarvy 1 tab po qd.complia nce reviewedla bs Candidiasi s of the esophagus 7.81 off/on; recurrento n clotrimazo le. swish and spit /BID/TID PRN for suppressio nSTART Fluconazol e 100mg po qd x 21 days: esophageal sandy; then continue clotrimazo le for suppressio noral swab for sandy/ba cteria obtained Abnormal a nal Papanicolaou smear 112501122 R85.619 [id number] Anal PAP sample obtained/p reformed: no abnormalit yGC/chlamy chi rectal done [id number] Cheryl Levin MD Main Office [address] [facility] [place] [address] 04/13/2025 10:41:03 04/13/2025 12:37:30 Cachexia associated with AIDS 374883177 R64 B20 stable/imp roved. has gained weight.con tinue Serostim 6mg s/c qd abdomen. goal is to increase weight, endurance and muscle masspotent ial side effects reviewed.o n Boost protein shakeson megace PRNto call with any concerns Human immunodeficiency virus infection 82417081 B20 HIV.Contin ue Biktarvy 1 tab po qd.complia dinorahe reviewedla bshe is aware might start IV med q 6 months and IM cabotegrav ir QOM Candidiasi s of the esophagus 44892839 B37.81 off/on; recurrento n clotrimazo le. swish and spit /BID/TID PRN for suppressio non Fluconazol e 100mg po qd x 21 days: esophageal sandy; then continue clotrimazo le for suppressio n Health Concerns Section Related Observation LastModified by Organization Detai ls LastModified Time None Recorded Concern Status LastModified by Organization Details LastModified Time None Recorded Advance Directives Directive None Recorded Payers Insurance Date Sequence Insurance Name Policy Number Policy Perry Covered Member ID Perry Member ID Guarantor Name 04/16/[address] [facility] - DOS ON OR AFTER 2022 - MEDICARE ADVANTAGE [place] (MEDICARE REPLACEMENT/AD VANTAGE - PPO) [facility] [id number] [facility] Notes Date Note Type Note Provider Name and Address Organization Details Recorded Time 10/21/2024 text/html ROS as noted in the HPI HIVOn Biktarvy 1 tab po qd.reports daily [...] notify site start date and confirm medication. DIRECTOR OF INFORMATICS in room with his consent. Cheryl Levin MD [address] [place] [address], [phone], LYNN LEVIN MD [facility] 10/21/2024 14:34:28 11/25/2024 text/html ROS as noted in the [facility] HIVOn Biktarvy 1 tab po qd.reports daily [...] cyst removal in recent weeks. outpatient/day procedure. DIRECTOR OF INFORMATICS in room with his consent. 07/2025 HIV VL nondetceted; ALt/AST wnl; eGFR>60; EY0=516 Cheryl Levin MD [address] [place] [address], [phone], LYNN LEVIN MD [facility] 11/26/2024 15:09:42 12/30/2024 text/html ROS as noted in the [facility] HIVOn Biktarvy 1 tab po qd.reports daily compliance. denies missing dose.thrush. gets on/off and using clotrimazole to treat/suppress.gaining weight: 120lbs ---145lbs --152 lbsno aspirationgetting serostim daily for cachexia,no side effects.might get G tube removed in February 2025.no hospitalizations since he was last seenmed list reviewed. DIRECTOR OF INFORMATICS on vacation in [facility]. came in today with a a friendVL nondetceted;07/2025 HIV VL nondetceted; ALt/AST wnl; eGFR>60; VT5=571 Cheryl Levin MD [address] [place] [address], [phone], LYNN LEVIN MD [facility] 12/30/2024 16:39:33 03/09/2025 text/html ROS as noted in the [facility] HIVOn Biktarvy 1 tab po qd.reports daily compliance. denies missing dose.thrush ongoing. has flareup today.gets on/off and using clotrimazole to treat/suppress.getting serostim daily for cachexia, helpingno side effects.might get G tube removed in February 2025.med list reviewed. will get anal pap VL nondetceted;02/07/2024 HIV Vl=24; AST =28 ALT 109; eGFR=90;07/2025 HIV VL nondetceted; ALt/AST wnl; eGFR>60; YO7=039 Cheryl Levin MD [address] [place] [address], [phone], LYNN - CHERYL LEVIN MD [facility] 03/09/2025 13:13:07 04/13/2025 text/html ROS as noted in the HPI HIVOn Biktarvy 1 tab po qd.Willing to get switched to infusion/cabotegravir injection if he is a candidate. prefers no POhas been choking on certain foods like bread; last episode last week where medical practice manager had help him when he choked.he feels well.thrush ongoing 03/09/25 sandy. he did take the 21 days of fluconazole. fluconazole prn for active tx;gets on/off and using clotrimazole to treat/suppress.weight has been stable. on serostim and protein boost shakes. has been on megace PRN.getting serostim daily for cachexia,no side effects. not hospitalized. no pneumonia.medical practice manager struggling with nurses that go to his home. he missess Biktarvy on weekends when nurses do not show up for visits; his meds are locked and they are accessed and administered by the nurses.pt will request list of meds that pt is currently taking.med list reviewed.EKG ok.7 2024 anal PAP neg for abnormalities; no [id number] VL=24; eGFR>60;02/07/2024 HIV Vl=24; AST =28 ALT 109; eGFR=90;07/2025 HIV VL nondetceted; ALt/AST wnl; eGFR>60; GE6=937 Cheryl Levin MD [address] [place] [address], [phone], LYNN - CHERYL LEVIN MD [facility] 04/15/2025 11:00:52
--- OUTSIDE RECORDS SUMMARY | 2025-06-03 07:49 | XMS_ITS | Clinical Summary ---
Author Organization [facility] Address [address] [place] [address] Care Team Providers Care Aircraft Assembler Name Role Phone Zora Arce PA-C Primary Care Provider [phone] Source Comments PLEASE NOTE, if this patient [...] EC tabletIndications:H IV (human immunodeficiency virus infection) ([facility]) Take 1 Tab by mouth [...] NUTRITION) liquidIndications:H IV (human immunodeficiency virus infection) ([facility]) Take 1 Can by mouth 3 (three) [...] thma, intermittent, uncomplicated ([facility]) Place 1 [place] into the nostril(s) as needed for congestion. 60 mL 6 016 Active omeprazole (PRILOSEC) [address] capsuleIndications: Dyspepsia Take 1 Cap by mouth every morning before breakfast. Do not crush or chew. 30 Cap 3 016 Active albuterol sulfate hfa (PROAIR HFA) 90 mcg/actuation inhalerIndications: Asthma, intermittent, uncomplicated ([facility]) Inhale 2 Puffs into the lungs every 4 (four) hours as needed for shortness of breath. Int asthma 18 g 6 016 Active Active Problems Problem Noted Date Diagnosed Date Asthma, mild intermittent ([facility]) 05/06/2015 Fibromyalgia 01/27/2015 Generalized anxiety disorder 01/27/2015 Seizure disorder ([facility]) 01/27/2015 Major depressive disorder, r ecurrent, severe without psychotic features ([facility]) 01/27/2015 Overview (01/27/2015): Has therapist at [facility] HIV (human immunodeficiency virus infection) ([facility]) 01/27/2015 Chronic back pain 01/27/2015 Hepatitis C [...] Plan of Treatment Not on file Insurance [place] Member [facility] Name:Benjamin Fall Relation to Subscriber:Self Name:Benjamin Fall Payer ID:[id number] Group ID:Not on file Type:Medicaid Address: [address] DENTAL Member Subscriber [facility] Name:Benjamin Fall Relation to Subscriber:Self Name:Benjamin Fall Payer ID:[id number] Group ID:Not on file Type:Other Address: [address] [place] [id number] Care Teams Aircraft Assembler Relationship Specialty Start Date End Date Zora Arce PA-C [address] [place] [address] PCP - General 11/05/18
--- OUTSIDE RECORDS SUMMARY | 2025-06-03 07:49 | XMS_ITS | Data Portability ---
Author Organization [facility] [employer] [facility], Main Office Address [address], [address] [place] [address] Care Team Providers Care General Office Worker Name Role Phone BRENDAN HOLLINGSWORTH - 2ND FLOOR OTHER Assessment Encounter Date Assessment Date Assessment LastModified by Organization Details LastModified Time 09/18/2023 09/18/2023 45 minutes spent on coordination of discharge. [email or web address] Not available 09/18/2023 09:47:05 Plan of Treatment [...] and Address Organization Details Recorded Time Asthenia 61362469 Active 2022 MAURO DUFFY NP [address] [facility], [address], [place], [address], [facility] [employer] 3 12:08:07 Moderate protein-calori e malnutrition (weight for age 60-74 percent of standard) 633054567 Active 2022 MAURO DUFFY NP [address] [facility], [address], [place], [address], [facility] [employer] 3 12:08:23 Pneumonia 129985302 Active 2022 MAURO DUFFY NP [address] [facility], [address], [place], [address], [facility] [employer] 3 12:08:31 Pleural effusion 20385550 Active 2022 MAURO DUFFY NP [address] [facility], [address], [place], [address], [facility] [facility] 3 12:08:59 Hypertensive disorder 49766294 Active 2022 MAURO DUFFY NP [address], [address], [place], [address], [facility] [employer] [facility] 3 12:09:07 Human immunodeficien cy virus infection 08509520 Active 2022 MAURO DUFFY NP [address], [address], [place], [address], [facility] [employer] [facility] 3 12:09:12 Viral hepatitis C 62873127 Active 2022 MAURO DUFFY NP [address] [facility], [address], [place], [address], [facility] [employer] [facility] 3 12:09:28 Mixed anxiety and depressive disorder 325711135 Active 2022 MAURO DUFFY NP [address] [facility], [address], [place], [address], [facility] [employer] [facility] 3 12:09:40 Asthma 447406158 Active 2022 MAURO DUFFY NP [address] [facility], [address], [place], [address], [facility] [employer] 3 12:09:56 Acute dermatitis 27585713 Active 2022 MAURO DUFFY NP [address], [address], [place], [address], [facility] [employer] [facility] 3 12:14:27 Migraine 60091047 Active 2022 MAURO DUFFY NP [address] [facility], [address], [place], [address], [facility] [employer] [facility] 3 12:25:08 Non-traumatic rhabdomyolysis 363728401 Active 2022 Leilani Romeo MD [address], [address], [place], [address], [facility] 3 10:08:19 Moderate persistent asthma 904218958 Active 2022 Leilani Romeo MD [address], [address], [place], [address], [facility] 3 10:18:10 Insomnia 102906320 Active 2022 Leilani Romeo MD [address], [address], [place], [address], [facility] 3 10:19:09 Harmful pattern of use of multiple substances 444519206 Active 2022 Leilani Romeo MD [address], [address], [place], [address], [facility] 3 10:19:11 Adult failure to thrive syndrome 061077165 Active 2022 Maryjane Glover NP [address], [address], [place], [address], [facility] 3 13:27:15 Anemia 854681116 Active 2022 Maryjane Glover NP [address] [facility], [address], [place], [address], [facility] 3 13:30:43 Dysphagia 60024919 Active 2022 Leilani Romeo MD [address], [place], [address], [facility] 3 20:51:38 Gastroesophage al reflux disease without esophagitis 163671688 Active 2022 Leilani Romeo MD [address], [place], [address], [facility] 3 20:54:24 Chronic pain 84489043 Active 2022 Leilani Romeo MD [address], [address], [place], [address], [facility] 3 20:55:56 Problem Notes None recorded. Medical Equipment None Reported. Allergies Allergen ID Allergen Name Allergen Category Reaction Reaction Severity Criticality Documentation Date Start Date Code Code System Note Provider Name and Address Organization Details Recorded Time 05812 codeine medicatio n Not available Not available Not available 01/17/2023 4670 RxNorm rash MAURO DUFFY NP [address], [address], [place], [address], [facility] 3 12:06:48 86484 Levaquin medicatio n Not available Not available Not available 01/17/2023 98479 2 RxNorm rash MAURO DUFFY NP [address] [facility], [address], [place], [address], [facility] 3 12:06:58 92860 Reglan medicatio n Not available Not available Not available 01/17/2023 9230 RxNorm rash MAURO DUFFY NP [address] [facility], [address], [place], [address], [facility] 3 12:07:11 99581 ibuprofen medicatio n Not available Not available Not available 01/17/2023 5640 RxNorm reflu x MAURO DUFFY NP [address] [facility], [address], [place], [address], [facility] 3 12:07:28 26136 Product containin g penicilli n (product) medicatio n Not available Not available Not available 01/17/2023 87434 8001 SNOMED rash MAURO DUFFY NP [address] [facility], [address], [place], [address], [facility] 3 12:07:45 79517 Ultram medicatio n Not available Not available Not available 01/17/2023 04134 6 RxNorm N/V MAURO DUFFY NP [address] [facility], [address], [place], [address], [facility] 3 12:07:56 67512 acetamino phen medicatio n other Not available unabletoasse 08/03/2023 161 RxNorm unkno wn Maryjane Glover NP [address] [facility], [address], [place], [address], [facility] 3 13:00:59 15743 [employer] environme nt,medica tion other Not available unabletoasse 08/03/2023 48587 6 RxNorm unkno wn Maryjane Glover NP [address] [facility], [address], [place], [address], [facility] 3 13:01:38 Medications Name Sig Start Date [...] Vitals Date Recorded Body height Body weight Heart rate Respiratory rate Body temperature Oxygen saturation Oxygen saturation in Arterial blood by Pulse oximetry Systolic And Diastolic Provider Name and Address Organization Details Last Updated DateTime 4 167.64 cm 13855.5 4 g 88 /min 18 /min 97.6 [degF] 96 % 96 % 133/85 mm[Hg] Maryjane Glover NP [address] [facility] [address], [place], [address], [facility] 4 19:10:48 Date Recorded Body height Heart rate Respiratory rate Body temperature Oxygen saturation Oxygen saturation in Arterial blood by Pulse oximetry Systolic And Diastolic Provider Name and Address Organization Details Last Updated DateTime 4 167.64 cm 84 /min 18 /min 97.5 [degF] 98 % 98 % 133/85 mm[Hg] MAURO DUFFY NP [address] [facility], [address], [place], [address], [facility] 4 08:57:54 Date Recorded Body height Body weight Body mass index (BMI) Heart rate Respiratory rate Body temperature Oxygen saturation Oxygen saturation in Arterial blood by Pulse oximetry Systolic And Diastolic Provider Name and Address Organization Details Last Updated DateTime 3 167.64 cm 03502.5 4 g 17.4 kg/m2 86 /min 18 /min 97.6 [degF] 91 % 91 % 115/68 mm[Hg] Maryjane Glover NP [address] [facility], [address], [place], [address], [facility] 3 11:08:33 Date Recorded Body height Body weight Heart rate Respiratory rate Body temperature Oxygen saturation Oxygen saturation in Arterial blood by Pulse oximetry Systolic And Diastolic Provider Name and Address Organization Details Last Updated DateTime 3 167.64 cm 57165.5 4 g 72 /min 18 /min 97.1 [degF] 96 % 96 % 115/68 mm[Hg] Maryjane Glover NP [address] [facility], [address], [place], [address], [facility] 3 13:10:32 Date Recorded Body height Body mass index (BMI) Body weight Heart rate Systolic And Diastolic Provider Name and Address Organization Details Last Updated DateTime 09/07/2023 167.64 cm 17.3 kg/m2 83743.38 g 74 /min 133/85 mm[Hg] Dilia Mikki Hutchinson [address] [facility], [address], [place], [address] , [facility] 09/07/2023 13:13:45 Social History Question Answer Notes LastModified by [email or web address] Details LastModified Time Tobacco Smoking Status Never Smoker MAURO DUFFY NP [address] [facility], [address], [place], [address], [facility] 01/17/2023 11:35:26 Do You Have An Advance Directive? Yes [email or web address] Information not available 01/17/2023 What Is Your Code Status? Full Code [email or web address] Information not available 01/17/2023 Where Do You Live? Apartment With Elevator, Family Near By, Helpful Information not available 01/17/2023 What Was The Date Of Your Most Recent Tobacco Screening? 08/03/2023 Information not available 08/03/2023 Has Tobacco Cessation Counseling Been Provided? No [email or web address] Information not available 01/17/2023 Sex: Unknown Functional Status Question Answer Note LastModified by Organizat ion Details LastModified Time Do you use any illicit or recreational drugs? No noted past use cocaine Information not available 08/03/2023 Do you or have you ever used any other forms of tobacco or nicotine? No [email or web address] Information not available 01/17/2023 What is your level of alcohol consumption? None [email or web address] Information not available 01/17/2023 Mental Status None recorded. Family History Relationship Description Onset Age of this Age Resolved Age Notes LastModified by Organization Details LastModified Time Mother Malignant neoplasm of lung [email or web address] Not available 2022 11:34:21 Medical History No medical history recorded. Immunizations Vaccine Type Date Status Note Provider Nam e and Address Organization Details Recorded Time COVID-19, mRNA, LNP-S, bivalent, PF, 50 mcg/0.5 mL or 25mcg/0.25 mL dose 2 completed Asia juarez [facility] 09/11/2023 13:44:56 COVID-19, mRNA, LNP-S, bivalent, PF, 50 mcg/0.5 mL or 25mcg/0.25 mL dose 3 completed Asia juarez [facility] 09/11/2023 13:45:39 Pneumococcal conjugate PCV20, polysaccharide IMT090 conjugate, adjuvant, PF 3 completed Asia juarez [facility] 09/11/2023 13:46:16 Influenza, adjuvanted, quadrivalent, PF 3 completed Asia juarez [facility] 09/11/2023 13:46:36 Influenza, adjuvanted, quadrivalent, PF 2 completed Asiayahaira Andre Chan [facility] 10/24/2023 13:13:32 Past Encounters Encounter ID Performer Location Encounter Start Date Encounter Closed Date Diagnosis/Indication Diagnosis SNOMED-CT Code Diagnosis ICD10 Code Diagnosis IMO Codes Diagnosis Note [id number] MAURO DUFFY NP [facility] [address] [place] [address] 01/17/2023 11:16:19 01/22/2023 12:34:21 Pleural effusion 43423516 J90 and empyema, resp. failures/p L chest tube, intubation Clinically improved.M onitor VS, sats, LS, CP status closely for decompensa tion Pneumonia 560560916 J18. 9 Treated with IV zosyn in hosp.Clini lesly improved.A s above, monitlr VS, sats, LS, CP status closely Asthenia 16755089 R53.1 PT OT eval and tx. Moderate protein-calorie malnutrition (weight for age 60-74 percent of standard) 352616977 E44.0 Started supplement s in hosp.Refer to registered public surveyor here.Seen by ST in hosp, diet changed to chopped/ad vanced consistenc yOn reg. diet here, doing well. Refer to rehab to try to get bedside FEES testing Hypertensive disorder 38 612461 I10 On norvasc 5 mg dailyPropr anolol ER held in hosp., instructed to resume 03/09, unclear as to why held or if used for something else?Monio r VS, adjust meds prn Human immunodeficiency virus infection 72964112 B20 Continue biktarvy Mixed anxi ety and depressive disorder 139678606 F41.8 Continue home meds:clona zepam 1 mg daily? risperdal 2 mg HSremeron 60 mg HSMonitor mood, behaviors for changePsyc h eval prn Asthma 597262732 J45.90 9 Continue flovent bidMonitor resp. status for change Acute dermatitis 8595413 6 L30.9 bilat. groin, fungalstar t nystatin cream or powder bid x 14 days or until clearmonit or Migraine 55490460 G43.90 9 Continue home meds:Celeb monica 200 mg bidgabapen tin 600 mg tidibuprof en 800 mg q8 hr prnultram 50 daily prn? clonazepam 1 mg daily? risperdal 2 mg HS? propranolo l Er 120 mg daily - held in hosp - cont. to hold here, resume date of 03/09 [facility] [id number] Kenia Michaels MD [address] [address] 01/19/2023 07:22:18 01/22/2023 15:16:30 Pneumonia 798671577 J15.8 antibiotic s completeds /p empyema, respirator y failure, intubation will monitor Asthenia 17348283 R53.1 PT/OTwill monitor Human immunodeficiency virus infection 06417821 B20 Biktarvy 50-200-25 dailyfu I.D. Essential hypertension 62448352 I10 amlodipine 5 mg dailywill monitor Mixed anxi ety and depressive disorder 724693966 F41.8 gabapentin 600 mg tidmirtaza pine 60 mg at hsrisperid one 2 mg at hsclonazep am 1 mg dailywill monitor Gastroesop hageal reflux disease without esophagitis 564150625 K21.9 pantoprazo le 40 mg dailywill monitor Chronic pain 11310623 G8 9.29 gabapentin 600 mg tidhospita l discharge notes include:ce lecoxib 200 m bid, ibuprofen 800 mg q8h prn, tramadol 50 mg daily prnwill monitor and consider if needed [id number] Panchito Morales NP [facility] on [address] [place] [address] 06/30/2023 08:20:37 07/03/2023 11:44:52 Human immunodeficiency virus infection 12685118 B20 06/30/23mo nitorID consult as indicated- biktarvy (bictegrav ir, emtricitab ine & tenofovir alafenamid e) 50-200-25m g QD Hypertensive disorder 38 338678 I10 06/30/23mo nitorcards FU PRNavoid beta barb with HX of cocaine abuse-amlo dipine 5mg QD Mixed anxi ety and depressive disorder 397670074 F41.8 06/30/23mo nitorpsych consult PRN-risper idone 3mg QHS Viral hepatitis C 364982 07 B19.20 06/30/23mo nitor [id number] Leilani Romeo MD [facility] on [address] [place] [address] 07/02/2023 17:00:01 07/12/2023 14:37:46 Human immunodeficiency virus infection 47882352 B20 Non-detect able on last checkConti nue biktarvy (bictegrav ir, emtricitab ine & tenofovir alafenamid e) 50-200-25m g QDF/U with ID as planned. Hypertensive disorder 38 407091 I10 BP good since here.Sam nue amlodipine 5 mg qdMonitor BP and labs. Mixed anxi ety and depressive disorder 132829945 F41.8 Mood stable.Con tinue risperidon e 3 mg qhs, mirtazapin e 30 mg qhs, and clonazepam 1 mg qd.Monitor mood.Psych consult prn. Viral hepatitis C 753205 07 B18.2 Unclear hx.LFTs WNL.F/U as outpt. Acute chest pain 9104217 01 R07.89 Per cardio not ACS.Monito r sxs.F/U with cardio prn. Non-trauma tic rhabdomyolysis 485305923 M62.82 CPK trended down inpt.No need to monitor further. Moderate p ersistent asthma 900005671 J45.40 No SOB or hypoxia, but with junky cough as above.Cont inue Advair 230/21 two puffs BID, Flovent 2 puffs BID, and albuterol/ budesonide 2 puffs q 6 hrs prn.Monito r resp status. 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 Cough 12032690 R05.8 Sounds junky, but pt says it feels like tickle in throat. Maybe post nasal drip.Lungs clear, but still could be early PNA.Will start Robitussin DM 10 ml q 4 hrs prn and get CXR tomorrow.M onitor resp status. Insomnia 457612685 G47.0 9 Will try melatonin 5 mg qhs.Monito r sleep patterns. [id number] MIGUEL BROWN [facility] on [address] [place] [address] 07/05/2023 08:16:20 07/12/2023 16:01:31 Mixed anxiety and depressive disorder 018588497 F41.8 07/05: his mood is stablecont inue:clona zepam 1 mg dailyrispe ridone 3 mg daily at bedtime.Mi rtazapine 30 mg at bedtime daily.tu tonin 5 mg at bedtime daily Cough 25048905 R05.8 07/05: non productive upper airway congested coughThere is no SOB. LS are clearCXR completed; no active pulmonary infiltrate s or pleural effusions seen.Robit ussin DM 10 ml q 4 hrs prn- will scheduled for a few days, does not look like he requested prn.Monito r resp status. Harmful pa ttern of use of multiple substances 114605651 F19.10 Most often cocaine, but sometimes other things.Con tinue SUDs counseling while here and encourage abstinence and outpt f/u. [id number] MIGUEL BROWN [facility] on [address] [place] [address] 07/06/2023 09:35:29 07/12/2023 16:16:45 Mixed anxiety and depressive disorder 926743427 F41.8 continue:c lonazepam 1 mg dailyrispe ridone 3 mg daily at bedtime.Mi rtazapine 30 mg at bedtime daily.tu tonin 5 mg at bedtime dailyfollo w up with outpatient PCP. Cough 84581533 R05.8 CXR on 07/03/23 negative for any acute process.Ro bitussin DM 10 ml q 4 hrs prnfollow up with outpatient PCP. Acute dermatitis 6304786 6 L30.9 continueny statin cream BID as needed until clearedfol low up with outpatient PCP. Asthma 411783302 J45.90 9 Advair 230/21 two puffs BID,Floven t 2 puffs BID, andalbuter ol/budeson kentrell 2 puffs q 6 hrs prn.follow up with outpatient PCP. Human immunodeficiency virus infection 08163216 B20 Continue biktarvy (bictegrav ir, emtricitab ine & tenofovir alafenamid e) 50-200-25m g QD Hypertensive disorder 38 856641 I10 Continue amlodipine 5 mg qdfollow up outpatient Insomnia 080874434 G47.0 9 melatonin 5 mg at bedtime Migraine 12128341 G43.90 9 Continue home meds: Celebrex 200 mg bid gabapentin 600 mg tid ibuprofen 800 mg q8 hr prn ultram 50 daily prn clonazepam 1 mg daily risperdal 3 mg HS follow up with PCP Viral hepatitis C 236705 07 B18.2 follow labs outpatient follow up with outpatient pcp. [id number] Maryjane Glover NP [address] [address] 08/03/2023 12:58:35 08/08/2023 10:07:33 Human immunodeficiency virus infection 41824331 B20 ID consult prnbiktarv y (bictegrav ir, emtricitab ine & tenofovir alafenamid e) 50-200-25m g QD Asthenia 75725713 R53.1 PT/OT treat and evalwill monitor Essential hypertension 31486681 I10 amlodipine 5 mg dailywill monitor Mixed anxi ety and depressive disorder 668725874 F41.8 gabapentin 600 mg tidmirtaza pine 60 mg at hsrisperid one 3 mg at [facility] am 1 mg dailypsych prnwill monitor Gastroesop hageal reflux disease without esophagitis 937131304 K21.9 With recent workup in hosp and PEG placed.use G tube for feedings/m edswill monitor Chronic pain 47936503 G8 9.29 gabapentin 600 mg tidtramado l 50 mg prn dailymulti ple allergies notedwill monitor and consider if needed Harmful pa ttern of use of multiple substances 519076276 F19.10 Most often cocaine per hx with overdoses notedConti nue counseling while here and encourage abstinence and outpt f/u. Asthma 281876371 J45.90 9 advair 2 puff bidalbuter ol 2 puffs q 6 hours prn wheezingMo nitor resp. status for change Viral hepatitis C 973553 07 B18.2 fu with labscurren tly stable liver enzymesmon itor Moderate protein-calorie malnutrition (weight for age 60-74 percent of standard) 932340610 E44.0 now on PEG tube with feedings at 60cc/hrRef er to registered public surveyor here.Seen by in hosp, unclear why he has dysphagia and difficulty eating with workup including EGD at [facility] recentlysp eech eval and treat here to see if he can take po intakemoni tor Anemia 194980509 D64.9 ferrous gluconate 324 dailymonit or cbc weekly Adult fail ure to thrive syndrome 272292593 R62.7 g tube feedings and meds through g tube at 60cc/hrfai lure to thrive with supplement s in pastspeech to eval and treat, consider reintroduc ing foods when ableweight s weeklymoni tor Insomnia 680393475 G47.0 9 benedryl 25 mg qhsmonitor [id number] Leilani Romeo MD [address] [place] [address] 08/06/2023 16:28:34 08/08/2023 11:16:44 Adult failure to thrive syndrome 021888411 R62.7 With marked wt. loss over past few months.Con tinue Jevity 1.0 or 1.2 tanya/ml at 60 ml/hr.Stil l unable to swallow, unknown reason.Con momo GEAR TESTER interventi ons to hopefully enable him to eat again.Cait gardner wts and labs. Moderate protein-calorie malnutrition (weight for age 60-74 percent of standard) 516396589 E44.0 As above. Human immunodeficiency virus infection 36491634 B20 Last labs show zero viral load.Sam nue Biktarvy (bictegrav ir, emtricitab ine & tenofovir alafenamid e) 50-200-25m g QDF/U with ID as planned. Asthenia 10358219 R53.1 Very deconditio armen.Needs PT/OT for strengthen ing, balance, gait training, safety and function.C ontinue fall precaution s.Monitor for safety. Essential hypertension 76792524 I10 BP running low since here, should improve as nutritiona l status improves.C ontinue amlodipine 5 mg qdMonitor BP and labs. Gastroesop hageal reflux disease without esophagitis 205164692 K21.9 On no meds.I wonder if starting a PPI may help with throat pain?Monit or Chronic pain 44370579 G8 9.29 No c/o tonight.Co ntinue gabapentin 600 mg TID and tramadol 50 mg qd prnMonitor sxs. Asthma 290398793 J45.30 Asthma meds transcribe d incorrectl y on admission here.Was not put on Advair, but rather only albuterol/ budesonide prn.Will restart Advair 230/21 mcg two puffs BIDMonitor resp. status Anemia 508475955 D64.89 Not currently anemic.Con tinue ferrous gluconate 324 mg qdMonitor labs Mixed anxi ety and depressive disorder 076189465 F41.8 Mood stable.Con tinue risperidon e 3 mg qhs, mirtazapin e 60 mg qhs, and clonazepam 1 mg qd.Monitor mood.Psych consult prn. Viral hepatitis C 739664 07 B18.2 Unclear hx.LFTs WNL.F/U as outpt. Harmful pa ttern of use of multiple substances 140918598 F19.10 Most often cocaine, but sometimes other things.Con tinue counseling and encourage abstinence and outpt f/u. Dysphagia 53764291 R13.1 9 Unknown etiology.C ontinue G-tube feeding as above.Cons ider ENT consult. [id number] Maryjane Glover NP [address] [address] 08/16/2023 12:26:03 08/22/2023 11:29:11 Adult failure to thrive syndrome 797788788 R62.7 With marked wt. loss over past few months.Con braydenueJevit y 1.5 tanya/ml at 60 ml/hr. registered public surveyor following and will adjust as neededStil l unable to swallow, unknown reason.Mehrdad barr GEAR TESTER interventi ons to hopefully enable him to eat again.Cait tor wts and labs. Dysphagia 04254186 R13.1 9 Unknown etiology.C ontinue G-tube feeding as above.Cons ider ENT consult. Moderate protein-calorie malnutrition (weight for age 60-74 percent of standard) 843081154 E44.0 As above. Human immunodeficiency virus infection 13849173 B20 Last labs show zero viral load.Sam nueBiktarv y (bictegrav ir, emtricitab ine & tenofovir alafenamid e) 50-200-25m g QDF/U with ID as planned. Asthenia 37140561 R53.1 Very deconditio armen.Needs PT/OT for strengthen ing, balance, gait training, safety and function.C ontinue fall precaution s.Monitor for safety. Essential hypertension 84476784 I10 BP running low since here, should improve as nutritiona l status improves.a mlodipine 5 mg qdMonitor BP and labs. Gastroesop hageal reflux disease without esophagitis 433696847 K21.9 no meds.Monit or Chronic pain 29772888 G8 9.29 has mild headache todayConti nuegabapen tin 600 mg TIDtramado l 50 mg qd prnMonitor sxs. Asthma 198069183 J45.30 Asthma meds transcribe d incorrectl y on admission here.albut maddi/budes onide prn.Advair 230/21 mcg two puffs BIDMonitor resp. status Anemia 364928460 D64.89 Not currently anemic.juan carlos l order cbc and bmp weekly [id number] gluconate 324 mg qdMonitor labs Mixed anxi ety and depressive disorder 925860705 F41.8 Mood stable.ris peridone 3 mg qhsmirtaza pine 60 mg qhs,clonaz epam 1 mg qd.Monitor mood.Psych consult prn. Viral hepatitis C 798733 07 B18.2 Unclear hx.LFTs WNL.F/U as outpt. Harmful pa ttern of use of multiple substances 085133450 F19.10 Most often cocaine, but sometimes other things.Mehrdad barr counseling and encourage abstinence and outpt f/u. [id number] Maryjane Glover NP [address] [address] 08/22/2023 11:06:38 08/28/2023 14:23:57 Adult failure to thrive syndrome 203647568 R62.7 With marked wt. loss over past few months.Con momoJevit y 1.2 tanya/ml at 67ml/hr. registered public surveyor following and will adjust as neededStil l unable to swallow, unknown reason.Mehrdad barr GEAR TESTER interventi ons to hopefully enable him to eat again.Cait tor wts and labs.08/22 registered public surveyor to assess if bolus feedings can be attempted for homefamily /pt needs g tube care/teach ing for ? dc homemonito r Asthenia [id number] R53.1 Very deconditio armen, improving every week with therapyNee ds PT/OT for strengthen ing, balance, gait training, safety and function.C ontinue fall precaution s.Monitor for safety. Dysphagia [id number] R13.1 9 Unknown etiology.C ontinue G-tube feeding as above.Cons ider ENT consult. Anemia 891920362 D64.89 Not currently anemic.juan carlos scales order cbc and bmp weekly g1yhzezve gluconate 324 mg qdMonitor labs Moderate protein-calorie malnutrition (weight for age 60-74 percent of standard) 207448851 E44.0 As above. Human immunodeficiency virus infection 82003505 B20 ContinueBi ktarvy (bictegrav ir, emtricitab ine & tenofovir alafenamid e) 50-200-25m g QDF/U with ID as planned. Essential hypertension 62100623 I10 BP now improving as nutritiona l status improves.1 10s-130s /60scontam lodipine 5 mg qdMonitor BP and labs. Gastroesop hageal reflux disease without esophagitis 318925087 K21.9 no meds.Monit or Chronic pain 62173109 G8 9.29 headache resolvedCo ntinuegaba pentin 600 mg TID, no pain todaytrama dol 50 mg qd prnMonitor sxs. Asthma 563344077 J45.30 Asthma meds transcribe d incorrectl y on admission here.albut maddi/budes onide prn.Advair 230/21 mcg two puffs BIDMonitor resp. status Mixed anxi ety and depressive disorder 911127231 F41.8 Mood stable and ding wellrisper idone 3 mg qhsmirtaza pine 60 mg qhs,clonaz epam 1 mg qd.Monitor mood.Psych consult prn. [id number] Maryjane Glover NP [address] [address] 08/29/2023 08:14:48 08/30/2023 19:42:34 Adult failure to thrive syndrome 189188943 R62.7 With marked wt. loss over past few months.Con tinueJevit y 1.2 tanya/ml at 67ml/hr. registered public surveyor following and will adjust as neededStil l unable to swallow, unknown reason.per speech eval: no eating or drinkingMo nitor wts and labs.08/22 registered public surveyor to assess if bolus feedings can be attempted for homefamily /pt needs g tube care/teach ing for ? dc homemonito r110/30 awaiting registered public surveyor to calculate gtube feedings and start Asthenia 05228792 R53.1 Very deconditio armen, improving every week with therapyNee ds PT/OT for strengthen ing, balance, gait training, safety and function.C ontinue fall precaution s.Monitor for safety. Dysphagia 98075886 R13.1 9 Unknown etiology.C ontinue G-tube feeding as above.Cons ider ENT consult. Anemia 451353057 D64.89 Not currently anemic.juan carlos l order cbc and bmp prn, labs stableferr ous gluconate 324 mg qdMonitor labs Moderate protein-calorie malnutrition (weight for age 60-74 percent of standard) 218525062 E44.0 As above. Human immunodeficiency virus infection 42374353 B20 ContinueBi ktarvy (bictegrav ir, emtricitab ine & tenofovir alafenamid e) 50-200-25m g QDF/U with ID as planned. Essential hypertension 00762418 I10 BP now improving as nutritiona l status improves.1 conta mlodipine 5 mg qdMonitor BP and labs. Gastroesop hageal reflux disease without esophagitis 695403573 K21.9 no meds.Monit or Chronic pain 20729056 G8 9.29 headache resolvedCo ntinuegaba pentin 600 mg TID, no pain todaytrama dol 50 mg qd prnMonitor sxs. Asthma 723196452 J45.30 Asthma meds transcribe d incorrectl y on admission here.albut maddi/budes onide prn.Advair 230/21 mcg two puffs BIDMonitor resp. status Mixed anxi ety and depressive disorder 505750448 F41.8 Mood stable and ding wellrisper idone 3 mg qhsmirtaza pine 60 mg qhs,clonaz epam 1 mg qd.Monitor mood.Psych consult prn. Neck pain 77345919 M54.2 incidental neck pain, states slept on it wrongnsg giving tyl, tramadol and gabapentin reposition neckmonito r for relief [id number] Dilia Hutchinson [address] [address] 09/07/2023 05:15:43 09/13/2023 10:39:11 Adult failure to thrive syndrome 962882782 R62.7 With marked wt. loss over past few months.Con tinueJevit y 1.2 tanya/ml at 67ml/hr. registered public surveyor following and will adjust as neededStil l unable to swallow, unknown reason.Con braydenue GEAR TESTER interventi ons to hopefully enable him to eat again.Cait tor wts and labs.recei deborah education on gt feeds, SW working on VNA set up for [facility] GT site daily with NS and dry. apply 2x2 to sitemonito r Asthenia 89735538 R53.1 Very deconditio armen, improving every week with therapyNee ds PT/OT for strengthen ing, balance, gait training, safety and function.C ontinue fall precaution s.Monitor for safety. Dysphagia 49508330 R13.1 9 Unknown etiology.C ontinue G-tube feeding as above.Cons ider ENT consult. Anemia 821516590 D64.89 Not currently anemic.juan carlos l order cbc and bmp weekly y1brfsobm gluconate 324 mg qdMonitor labs Moderate protein-calorie malnutrition (weight for age 60-74 percent of standard) 076043091 E44.0 As above. Human immunodeficiency virus infection 77813136 B20 ContinueBi ktarvy (bictegrav ir, emtricitab ine & tenofovir alafenamid e) 50-200-25m g QDF/U with ID as planned. Essential hypertension 71253111 I10 BP now improving as nutritiona l status improves.1 10s-130s /60scontam lodipine 5 mg qdMonitor BP and labs. Gastroesop hageal reflux disease without esophagitis 900623929 K21.9 no meds.Monit or Chronic pain 20062715 G8 9.29 headache resolvedCo ntinuegaba pentin 600 mg TID, no pain todaytrama dol 50 mg qd prnMonitor sxs. Asthma 193922004 J45.30 Asthma meds transcribe d incorrectl y on admission here.albut maddi/budes onide prn.Advair 230/21 mcg two puffs BIDMonitor resp. status Mixed anxi ety and depressive disorder 180922907 F41.8 Mood stable and ding wellrisper idone 3 mg qhsmirtaza pine 60 mg qhs,clonaz epam 1 mg qd.Monitor mood.Psych consult prn. [id number] Maryjane Glover NP [address] [address] 09/12/2023 18:08:08 09/14/2023 11:17:17 Adult failure to thrive syndrome 238318950 R62.7 With marked wt. loss over past [...] dry. apply 2x2 to sitemonito r Asthenia 07658898 R53.1 Very deconditio armen, improving every week with therapyNee ds PT/OT for strengthen ing, balance, gait training, safety and function.C ontinue fall precaution s.Monitor for safety. Dysphagia 24600678 R13.1 9 Unknown etiology.C ontinue G-tube bolus feeding as above.FEES test on Sundayneed s cxr to rule out pna from foods and drinks in room despite recommenda tionConsid er ENT consult. Moderate protein-calorie malnutrition (weight for age 60-74 percent of standard) 910010293 E44.0 As above. Human immunodeficiency virus infection 65145318 B20 ContinueBi ktarvy (bictegrav ir, emtricitab ine & tenofovir alafenamid e) 50-200-25m g QDF/U with ID as planned. Essential hypertension 37027027 I10 BP now improving as nutritiona l status improves.1 10s-130s /60scontam lodipine 5 mg qdMonitor BP and labs. Asthma 121039534 J45.30 no wheezing noted on exam, stablealbu terol/bude sonide prn.Advair 230/21 mcg two puffs BIDMonitor resp. status Mixed anxi ety and depressive disorder 691430034 F41.8 Mood stable and ding wellrisper idone 3 mg qhsmirtaza pine 60 mg qhs,clonaz epam 1 mg qd.Monitor mood.Psych consult prn. [id number] MAURO DUFFY NP [address] [address] 09/18/2023 08:57:08 09/25/2023 10:49:09 Adult failure to thrive syndrome 587300168 R62.7 With marked wt. loss over past few months due to difficulty swallowing .G tube placed 07/30/23 at [facility].Contin ue osmolite 1.2 tanya/ml 410 cc qid bolus tube feedings upon d/c home.Seen by GEAR TESTER - now on puree diet with thin liquids - may continue at homeContin ue to monitor weights and intake at home Asthenia 90957990 R53.1 Improved, meeting rehab goals for d/c home today with support of services.C ontinue fall precaution s.Monitor for safety as outpt. Dysphagia 52952433 R13.1 9 Unknown etiology.S ee above.[facility] w on pureed diet, thin liquidsMon itor intake, s/s aspiration as outpt. Moderate protein-calorie malnutrition (weight for age 60-74 percent of standard) 948114435 E44.0 As above. Human immunodeficiency virus infection 21251356 B20 ContinueBi ktarvy (bictegrav ir, emtricitab ine & tenofovir alafenamid e) 50-200-25m g QDF/U with ID as planned. Essential hypertension 06899266 I10 continue amlodipine 5 mg qdMonitor BP as outpt. Asthma 848402220 J45.30 no wheezing noted on exam, stablecont inue Advair 230/21 mcg two puffs BID and albuterol/ budesonide prn.Monito r resp. status as outpt. Mixed anxi ety and depressive disorder 783048131 F41.8 Mood stable and doing wellContin ue home medsrisper idone 3 mg qhsmirtaza pine 60 mg qhsclonaze david 1 mg qdMonitor mood, behaviors as outpt. Chronic pain 56813659 G8 9.29 continue gabapentin 600 mg tid, ultram 50 mg qd prnmonitor asoutpt. Anemia 745348455 D64.89 remains on daily FeMonitor CBC,s/s active bleeding Health Concerns Section Related Observation LastModified by Organization Detai ls LastModified Time None Recorded Concern Status LastModified by Organization Details LastModified Time None Recorded Advance Directives Directive Y: Payers Insurance Date Sequence Insurance Name Policy Number Policy Perry Covered Member ID Perry Member ID Guarantor Name 09/25/2023 1 [facility] - DOS ON OR AFTER 2022 - MEDICARE ADVANTAGE [place] (MEDICARE REPLACEMENT/ADV ANTAGE - PPO) Benjamin Fall [id number] Benjamin Fall Notes Date Note Type Note [...] other concerns. Note: He was admitted to [facility] ED for similar concerns earlier this month [...] code signed 01/17/23 Maryjane Glover NP [address] [facility], [address], [place], [address], [facility] - [employer] 08/22/2023 11:24:08 08/29/2023 text/html Patient seen for an 30 routine rounding visit. Past medical history significant for HIV, history of hep C, depression, asthma, history lung abscess 2020, fall, several overdoses noted in hx. dysphagia seen for difficulty swallowing ultimately diagnosed with failure to thrive and PEG tube placed. Benjamin was admitted to [facility] ED for difficulty swallowing and underwent EGD [...] from hospital to rehab. While here at [facility]: Pt is 107.6 lbs and this [...] disconnect his feedings without difficulty here. Awaiting registered public surveyor to calculate bolus feedings and start them [...] nursing. MOLST: Full code signed 01/17/23 Maryjane Glover, LADAN [address] [facility], [address], [place], [address], [facility] [employer] 08/29/2023 13:39:07 09/07/2023 text/html ROS as noted in the HPI Patient seen for an acute rounding visit [...] other concerns. Note: He was admitted to [facility] ED for similar concerns earlier this month and underwent EGD on 07/17/[address] oDdson resulted without strictures and found to have [...] orally. MOLST: Full code signed 01/17/[address], [address], [place], [address], [facility] [employer] 09/07/2023 13:21:25 09/12/2023 text/html ROS as noted in the HPI Patient seen for an acute rounding visit [...] code signed 01/17/23 Maryjane Glover NP [address] [facility], [address], [place], [address], [employer] 09/12/2023 19:33:00 09/18/2023 text/html Benjamin is seen today for discharge. He is going home today with support of services. He is a 58 yo man admitted to [facility] 08/02/23 from [facility] for continued care and rehab after a hospitalization related to malnutrition and FTT.He presented to [facility] 07/27 reporting throat pain and the inability to swallow.Swallowing issues problematic prior to this presentation, had EGD with Dr. Dodson 07/17, results c/w mild candidiasis normal stomach and duodenum. He was also seen by GEAR TESTER, diet changed to NND1 and nectar thick liquid. Due to ongoing swallowing issues at home, he returned to [facility] ER.A g-tube was placed on 07/30, cause of dysphagia unclear. Kept NPO, and sent here for rehab. While here, Benjamin has done well.Worked with PT/OT, meeting goals for d/c home.Also worked with GEAR TESTER and registered public surveyor - now tolerating puree diet with thin [...] also, possibly inadvertently). MAURO DUFFY NP [address] [facility], [address], [place], [address], [employer] 09/18/2023 09:47:21
--- OUTSIDE RECORDS SUMMARY | 2025-06-03 07:49 | XMS_ITS | Encounter Summary ---
Author Organization [employer] Address [address] [place] [address] Care Team Providers Care Tile Mechanic Name Role Phone Physician, Pcp Unknown Primary Care Provider Bina vailable Encounter Details Date Type Department Care Team ([facility] Contact Info) Description 03/10/2025 Lab Requisition [facility] - Main Lab [address] [facility] [place] [address] MD [address] [place] [address] Unspecified abnormal cytological findings in specimens from [...] Upcoming Encounters Date Type Department Care Team ([facility] Contact Info) Description 07/07/2025 10:15 AM EDT Office Visit Orthopedic Surgery - [place] [address] [address] Kb Benitez DPM [address] [address] documented as of this encounter Procedures Procedure [...] AM EDT) Final Diagnosis Specimen sent to [facility] for Anal cytology with HPV CoTest. Their interpretation is as follows: Anal, Rectum (ThinPrep): Satisfactory for Evaluation. Transformation zone components absent. Negative for Intraepithelial Lesion or Malignancy. Disclaimer This test has been modified from the software team leader's instructions. Its performance characteristics were determined by [facility] in a manner consistent with CLIA requirements. This test has not been cleared or approved by the U.S. Food and Drug Administration Report signed electronically by: Qi Lehman M.D. on 16 Mar 2025 at 13:55 at [facility], 200 (CLIA [id number]) HPV Anal Detect/Genotyping, PCR: High Risk HPV [...] was ordered in the context of a [facility] Non-BOXING AND PRESSING SUPERVISOR Cytology case; this result should be interpreted within the context of the Non-BOXING AND PRESSING SUPERVISOR cytology report. Resulted 12 Mar 2025 at 17:00 by [facility], [address] [facility] (CLIA [id number]) Full report attached. 03/17/2025 2:31 PM EDT [facility] Disclaimer Unless otherwise specified, all tissue is 10% NB formalin fixed and paraffin embedded. Technical cytopathology services provided by [facility], at [address] [place] [address] (CLIA # [id number]/Angel Villalobos MD, Clerical Production Worker.) 03/17/2025 2:31 PM EDT [facility] Brushing/Spatula Anal structure / Unknown 03/09/2025 03/10/2025 9:22 AM EDT us [address] MD LAB CYTOLOGY ORDERABLES F inal Result [facility] [address] [place] [address], documented in this encounter Visit Diagnoses Diagnosis Unspecified abnormal cytological findings in specimens from anus documented in this encounter Care Teams Tile Mechanic Relationship Specialty Start Date End Date Physician, Pcp Unknown PCP - General 03/10/25 documented as of this encounter
== END ==
LOC: HO.CARD 07:46
PROVIDERS: PCP Student in an Organized Health Care Education/Training Program; Visit Provider Student in an Organized Health Care Education/Training Program
DX: R06.00 Dyspnea, unspecified (principal); Z21 Asymptomatic human immunodeficiency virus [HIV] infection status; I26.99 Other pulmonary embolism without acute cor pulmonale
CPT/HCPCS: 93306

== ENCOUNTER → 2025-06-03 07:49 | Outpatient (BNV) | payer OTHER, SELFPAY | PROVIDERS: PCP Student in an Organized Health Care Education/Training Program; Visit Provider Internal Medicine Cardiovascular Disease | DX: I51.89 Other ill-defined heart diseases (principal); Z21 Asymptomatic human immunodeficiency virus [HIV] infection status | CPT/HCPCS: 93306 ==

== ENCOUNTER 2025-06-09 11:58 | Outpatient (AMB) | payer OTHER, SELFPAY ==
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
--- OUTSIDE RECORDS SUMMARY | 2025-06-09 13:14 | XMS_ITS | Clinical Summary ---
Author Organization [facility] Address [address] [address] Phone Care Team Providers Care Finance Mgr Name Role Phone Gaetano Gibbons MD Primary Care Provider [phone] Social History Tobacco Use Types Packs/Day Years [...] Medical Devices Not on file Care Teams Finance Mgr Relationship Specialty Start Date End Date Gaetano Gibbons MD [address] [place] [id number], [address] [place] [address] [email or web address] PCP - General Family Medicine 07/02/23 Additional Source Comments The information contained in this document represents components of the legal health record. It is not the complete legal health record.[facility]
--- OUTSIDE RECORDS SUMMARY | 2025-06-09 13:14 | XMS_ITS | Data Portability ---
Author Organization [facility] [employer] [facility], Main Office Address [address], [address] [place] [address] Care Team Providers Care Aluminum Boats Assembler Name Role Phone BRENDAN HOLLINGSWORTH - 2ND FLOOR OTHER Assessment Encounter Date Assessment Date Assessment LastModified by Organization Details LastModified Time 09/18/2023 09/18/2023 45 minutes spent on coordination of discharge. [email or web address] Not available 09/18/2023 09:47:05 Plan of Treatment [...] and Address Organization Details Recorded Time Asthenia 82320999 Active 2022 MAURO DUFFY NP [address] [facility], [address], [place], [address], [facility] [employer] 3 12:08:07 Moderate protein-calori e malnutrition (weight for age 60-74 percent of standard) 658720703 Active 2022 MAURO DUFFY NP [address] [facility], [address], [place], [address], [facility] [employer] 3 12:08:23 Pneumonia 437438903 Active 2022 MAURO DUFFY NP [address] [facility], [address], [place], [address], [facility] [employer] 3 12:08:31 Pleural effusion 60612668 Active 2022 MAURO DUFFY NP [address] [facility], [address], [place], [address], [facility] [employer] [facility] 3 12:08:59 Hypertensive disorder 58769823 Active 2022 MAURO DUFFY NP [address], [address], [place], [address], [facility] [employer] [facility] 3 12:09:07 Human immunodeficien cy virus infection 71909413 Active 2022 MAURO DUFFY NP [address], [place], [address], [facility] [employer] [facility] 3 12:09:12 Viral hepatitis C 13364818 Active 2022 MAURO DUFFY NP [address] [facility], [address], [place], [address], [facility] [employer] [facility] 3 12:09:28 Mixed anxiety and depressive disorder 047627380 Active 2022 MAURO DUFFY NP [address] [facility], [address], [place], [address], [facility] [employer] [facility] 3 12:09:40 Asthma 382848925 Active 2022 MAURO DUFFY NP [address] [facility], [address], [place], [address], [employer] [facility] 3 12:09:56 Acute dermatitis 12750082 Active 2022 MAURO DUFFY NP [address], [address], [place], [address], [facility] 3 12:14:27 Migraine 72746259 Active 2022 MAURO DUFFY NP [address] [facility], [address], [place], [address], [facility] 3 12:25:08 Non-traumatic rhabdomyolysis 641625147 Active 2022 Leilani Romeo MD [address], [address], [place], [address], [employer] [facility] 3 10:08:19 Moderate persistent asthma 565665456 Active 2022 Leilani Romeo MD [address], [address], [place], [address], [facility] 3 10:18:10 Insomnia 549684400 Active 2022 Leilani Romeo MD [address], [address], [place], [address], [facility] 3 10:19:09 Harmful pattern of use of multiple substances 950679612 Active 2022 Leilani Romeo MD [address], [address], [place], [address], [facility] 3 10:19:11 Adult failure to thrive syndrome 852746517 Active 2022 Maryjane Glover NP [address], [address], [place], [address], [facility] 3 13:27:15 Anemia 091155514 Active 2022 Maryjane Glover NP [address] [facility], [address], [place], [address], [facility] 3 13:30:43 Dysphagia 78580424 Active 2022 Leilani Romeo MD [address], [place], [address], [facility] 3 20:51:38 Gastroesophage al reflux disease without esophagitis 318935366 Active 2022 Leilani Romeo MD [address], [place], [address], [facility] 3 20:54:24 Chronic pain 80211592 Active 2022 Leilani Romeo MD [address], [place], [address], [facility] 3 20:55:56 Problem Notes None recorded. Medical Equipment None Reported. Allergies Allergen ID Allergen Name Allergen Category Reaction Reaction Severity Criticality Documentation Date Start Date Code Code System Note Provider Name and Address Organization Details Recorded Time 94849 codeine medicatio n Not available Not available Not available 01/17/2023 4440 RxNorm rash MAURO DUFFY NP [address], [address], [place], [address], [facility] 3 12:06:48 28345 Levaquin medicatio n Not available Not available Not available 01/17/2023 24411 2 RxNorm rash MAURO DUFFY NP [address] [facility], [address], [place], [address], [facility] 3 12:06:58 57893 Reglan medicatio n Not available Not available Not available 01/17/2023 9230 RxNorm rash MAURO DUFFY NP [address] [facility], [address], [place], [address], [facility] 3 12:07:11 71007 ibuprofen medicatio n Not available Not available Not available 01/17/2023 5640 RxNorm reflu x MAURO DUFFY NP [address] [facility], [address], [place], [address], [facility] 3 12:07:28 10380 Product containin g penicilli n (product) medicatio n Not available Not available Not available 01/17/2023 12472 8001 SNOMED rash MAURO DUFFY NP [address] [facility], [address], [place], [address], [facility] 3 12:07:45 27197 Ultram medicatio n Not available Not available Not available 01/17/2023 75992 6 RxNorm N/V MAURO DUFFY NP [address] [facility], [address], [place], [address], [facility] 3 12:07:56 71871 acetamino phen medicatio n other Not available unabletoasse 08/03/2023 161 RxNorm unkno wn Maryjane Glover NP [address] [facility], [address], [place], [address], [facility] 3 13:00:59 83050 [employer] environme nt,medica tion other Not available unabletoasse 08/03/2023 42691 6 RxNorm unkno wn Maryjane Glover NP [address] [facility], [address], [place], [address], [facility] 3 13:01:38 Medications Name Sig Start [...] Details Last Updated DateTime 4 167.64 cm 28265.5 4 g 88 /min 18 /min 97.6 [degF] 96 % 96 % 133/85 mm[Hg] Maryjane Glover NP [address] [facility] [address], [place], [address], [facility] 4 19:10:48 Date Recorded Body height Heart rate Respiratory rate Body temperature Oxygen saturation Oxygen saturation in Arterial blood by Pulse oximetry Systolic And Diastolic Provider Name and Address Organization Details Last Updated DateTime 4 167.64 cm 84 /min 18 /min 97.5 [degF] 98 % 98 % 133/85 mm[Hg] MAURO DUFFY NP [address] [facility], [address], [place], [address], [facility] 4 08:57:54 Date Recorded Body height Body weight Body mass index (BMI) Heart rate Respiratory rate Body temperature Oxygen saturation Oxygen saturation in Arterial blood by Pulse oximetry Systolic And Diastolic Provider Name and Address Organization Details Last Updated DateTime 3 167.64 cm 94496.5 4 g 17.4 kg/m2 86 /min 18 /min 97.6 [degF] 91 % 91 % 115/68 mm[Hg] Maryjane Glover NP [address] [facility], [address], [place], [address], [facility] 3 11:08:33 Date Recorded Body height Body weight Heart rate Respiratory rate Body temperature Oxygen saturation Oxygen saturation in Arterial blood by Pulse oximetry Systolic And Diastolic Provider Name and Address Organization Details Last Updated DateTime 3 167.64 cm 16504.5 4 g 72 /min 18 /min 97.1 [degF] 96 % 96 % 115/68 mm[Hg] Maryjane Glover NP [address] [facility], [address], [place], [address], [facility] 3 13:10:32 Date Recorded Body height Body mass index (BMI) Body weight Heart rate Systolic And Diastolic Provider Name and Address Organization Details Last Updated DateTime 09/07/2023 167.64 cm 17.3 kg/m2 06035.38 g 74 /min 133/85 mm[Hg] Dilia Mikki Hutchinson [address] [facility], [address], [place], [address] , [facility] 09/07/2023 13:13:45 Social History Question Answer Notes LastModified by [employer] Details LastModified Time Tobacco Smoking Status Never Smoker MAURO DUFFY NP [address] [facility], [address], [place], [address], [facility] 01/17/2023 11:35:26 Do You Have An Advance Directive? Yes Information not available 01/17/2023 What Is Your Code Status? Full Code [email or web address] Information not available 01/17/2023 Where Do You Live? Apartment With Elevator, Family Near By, Helpful Information not available 01/17/2023 What Was The Date Of Your Most Recent Tobacco Screening? 08/03/2023 Information not available 08/03/2023 Has Tobacco Cessation Counseling Been Provided? No [email or web address] Information not available 01/17/2023 Sex: Unknown Functional Status Question Answer Note LastModified by Organizat ion Details LastModified Time Do you use any illicit or recreational drugs? No noted past use cocaine Information not available 08/03/2023 Do you or have you ever used any other forms of tobacco or nicotine? No [email or web address] Information not available 01/17/2023 What is your level of alcohol consumption? None [email or web address] Information not available 01/17/2023 Mental Status None recorded. Family History Relationship Description Onset Age of this Age Resolved Age Notes LastModified by Organization Details LastModified Time Mother Malignant neoplasm of lung [email or web address] Not available 2022 11:34:21 Medical History No medical history recorded. Immunizations Vaccine Type Date Status Note Provider Nam e and Address Organization Details Recorded Time COVID-19, mRNA, LNP-S, bivalent, PF, 50 mcg/0.5 mL or 25mcg/0.25 mL dose 2 completed Asia juarez [facility] 09/11/2023 13:44:56 COVID-19, mRNA, LNP-S, bivalent, PF, 50 mcg/0.5 mL or 25mcg/0.25 mL dose 3 completed Asia juarez [facility] 09/11/2023 13:45:39 Pneumococcal conjugate PCV20, polysaccharide FGX616 conjugate, adjuvant, PF 3 completed Asia juarez [facility] 09/11/2023 13:46:16 Influenza, adjuvanted, quadrivalent, PF 3 completed Asia juarez [facility] 09/11/2023 13:46:36 Influenza, adjuvanted, quadrivalent, PF 2 completed Asiayahaira Andre [facility] 10/24/2023 13:13:32 Past Encounters Encounter ID Performer Location Encounter Start Date Encounter Closed Date Diagnosis/Indication Diagnosis SNOMED-CT Code Diagnosis ICD10 Code Diagnosis IMO Codes Diagnosis Note [id number] MAURO DUFFY NP [facility] [address] [place] [address] 01/17/2023 11:16:19 01/22/2023 12:34:21 Pleural effusion 55606337 J90 and empyema, resp. failures/p L chest tube, intubation Clinically improved.M onitor VS, sats, LS, CP status closely for decompensa tion Pneumonia 308677085 J18. 9 Treated with IV zosyn in hosp.Clini lesly improved.A s above, monitlr VS, sats, LS, CP status closely Asthenia 01990574 R53.1 PT OT eval and tx. Moderate protein-calorie malnutrition (weight for age 60-74 percent of standard) 467472772 E44.0 Started supplement s in hosp.Refer to marketing director assisted living here.Seen by ST in hosp, diet changed to chopped/ad vanced consistenc yOn reg. diet here, doing well. Refer to rehab to try to get bedside FEES testing Hypertensive disorder 38 291431 I10 On norvasc 5 mg dailyPropr anolol ER held in hosp., instructed to resume 03/09, unclear as to why held or if used for something else?Monio r VS, adjust meds prn Human immunodeficiency virus infection 97821304 B20 Continue biktarvy Mixed anxi ety and depressive disorder 965505338 F41.8 Continue home meds:clona zepam 1 mg daily? risperdal 2 mg HSremeron 60 mg HSMonitor mood, behaviors for changePsyc h eval prn Asthma 877107827 J45.90 9 Continue flovent bidMonitor resp. status for change Acute dermatitis 6349206 6 L30.9 bilat. groin, fungalstar t nystatin cream or powder bid x 14 days or until clearmonit or Migraine 87958493 G43.90 9 Continue home meds:Celeb monica 200 mg bidgabapen tin 600 mg tidibuprof en 800 mg q8 hr prnultram 50 daily prn? clonazepam 1 mg daily? risperdal 2 mg HS? propranolo l Er 120 mg daily - held in hosp - cont. to hold here, resume date of 03/09 [id number] Kenia Michaels MD [address] [address] 01/19/2023 07:22:18 01/22/2023 15:16:30 Pneumonia 096796750 J15.8 antibiotic s completeds /p empyema, respirator y failure, intubation will monitor Asthenia 93275304 R53.1 PT/OTwill monitor Human immunodeficiency virus infection 70079527 B20 Biktarvy 50-200-25 dailyfu I.D. Essential hypertension 64286994 I10 amlodipine 5 mg dailywill monitor Mixed anxi ety and depressive disorder 636988324 F41.8 gabapentin 600 mg tidmirtaza pine 60 mg at hsrisperid one 2 mg at hsclonazep am 1 mg dailywill monitor Gastroesop hageal reflux disease without esophagitis 697478200 K21.9 pantoprazo le 40 mg dailywill monitor Chronic pain 50626121 G8 9.29 gabapentin 600 mg tidhospita l discharge notes include:ce lecoxib 200 m bid, ibuprofen 800 mg q8h prn, tramadol 50 mg daily prnwill monitor and consider if needed [id number] Panchito Morales NP [facility] on [address] [place] [address] 06/30/2023 08:20:37 07/03/2023 11:44:52 Human immunodeficiency virus infection 47719429 B20 06/30/23mo nitorID consult as indicated- biktarvy (bictegrav ir, emtricitab ine & tenofovir alafenamid e) 50-200-25m g QD Hypertensive disorder 38 191561 I10 06/30/23mo nitorcards FU PRNavoid beta barb with HX of cocaine abuse-amlo dipine 5mg QD Mixed anxi ety and depressive disorder 274113665 F41.8 06/30/23mo nitorpsych consult PRN-risper idone 3mg QHS Viral hepatitis C 882299 07 B19.20 06/30/23mo nitor [id number] Leilani Romeo MD [facility] on [address] [place] [address] 07/02/2023 17:00:01 07/12/2023 14:37:46 Human immunodeficiency virus infection 96294883 B20 Non-detect able on last checkConti nue biktarvy (bictegrav ir, emtricitab ine & tenofovir alafenamid e) 50-200-25m g QDF/U with ID as planned. Hypertensive disorder 38 700491 I10 BP good since here.Sam nue amlodipine 5 mg qdMonitor BP and labs. Mixed anxi ety and depressive disorder 616217539 F41.8 Mood stable.Con tinue risperidon e 3 mg qhs, mirtazapin e 30 mg qhs, and clonazepam 1 mg qd.Monitor mood.Psych consult prn. Viral hepatitis C 793455 07 B18.2 Unclear hx.LFTs WNL.F/U as outpt. Acute chest pain 7540888 01 R07.89 Per cardio not ACS.Monito r sxs.F/U with cardio prn. Non-trauma tic rhabdomyolysis 539029840 M62.82 CPK trended down inpt.No need to monitor further. Moderate p ersistent asthma 274152709 J45.40 No SOB or hypoxia, but with junky cough as above.Cont inue Advair 230/21 two puffs BID, Flovent 2 puffs BID, and albuterol/ budesonide 2 puffs q 6 hrs prn.Monito r resp status. 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 Cough 53531652 R05.8 Sounds junky, but pt says it feels like tickle in throat. Maybe post nasal drip.Lungs clear, but still could be early PNA.Will start Robitussin DM 10 ml q 4 hrs prn and get CXR tomorrow.M onitor resp status. Insomnia 866247032 G47.0 9 Will try melatonin 5 mg qhs.Monito r sleep patterns. [id number] MIGUEL BROWN [facility] on [address] [place] [address] 07/05/2023 08:16:20 07/12/2023 16:01:31 Mixed anxiety and depressive disorder 856666116 F41.8 07/05: his mood is stablecont inue:clona zepam 1 mg dailyrispe ridone 3 mg daily at bedtime.Mi rtazapine 30 mg at bedtime daily.tu tonin 5 mg at bedtime daily Cough 10219396 R05.8 07/05: non productive upper airway congested coughThere is no SOB. LS are clearCXR completed; no active pulmonary infiltrate s or pleural effusions seen.Robit ussin DM 10 ml q 4 hrs prn- will scheduled for a few days, does not look like he requested prn.Monito r resp status. Harmful pa ttern of use of multiple substances 094230400 F19.10 Most often cocaine, but sometimes other things.Con tinue SUDs counseling while here and encourage abstinence and outpt f/u. [id number] MIGUEL BROWN [facility] on [address] [place] [address] 07/06/2023 09:35:29 07/12/2023 16:16:45 Mixed anxiety and depressive disorder 905615714 F41.8 continue:c lonazepam 1 mg dailyrispe ridone 3 mg daily at bedtime.Mi rtazapine 30 mg at bedtime daily.tu tonin 5 mg at bedtime dailyfollo w up with outpatient PCP. Cough 09818573 R05.8 CXR on 07/03/23 negative for any acute process.Ro bitussin DM 10 ml q 4 hrs prnfollow up with outpatient PCP. Acute dermatitis 5560389 6 L30.9 continueny statin cream BID as needed until clearedfol low up with outpatient PCP. Asthma 367379431 J45.90 9 Advair 230/21 two puffs BID,Floven t 2 puffs BID, andalbuter ol/budeson kentrell 2 puffs q 6 hrs prn.follow up with outpatient PCP. Human immunodeficiency virus infection 92586478 B20 Continue biktarvy (bictegrav ir, emtricitab ine & tenofovir alafenamid e) 50-200-25m g QD Hypertensive disorder 38 128232 I10 Continue amlodipine 5 mg qdfollow up outpatient Insomnia 112206092 G47.0 9 melatonin 5 mg at bedtime Migraine 63657355 G43.90 9 Continue home meds: Celebrex 200 mg bid gabapentin 600 mg tid ibuprofen 800 mg q8 hr prn ultram 50 daily prn clonazepam 1 mg daily risperdal 3 mg HS follow up with PCP Viral hepatitis C 678246 07 B18.2 follow labs outpatient follow up with outpatient pcp. [id number] Maryjane Glover NP [address] [address] 08/03/2023 12:58:35 08/08/2023 10:07:33 Human immunodeficiency virus infection 45361059 B20 ID consult prnbiktarv y (bictegrav ir, emtricitab ine & tenofovir alafenamid e) 50-200-25m g QD Asthenia 98719353 R53.1 PT/OT treat and evalwill monitor Essential hypertension 46213434 I10 amlodipine 5 mg dailywill monitor Mixed anxi ety and depressive disorder 866039031 F41.8 gabapentin 600 mg tidmirtaza pine 60 mg at hsrisperid one [facility] 1 mg dailypsych prnwill monitor Gastroesop hageal reflux disease without esophagitis 839729792 K21.9 With recent workup in hosp and PEG placed.use G tube for feedings/m edswill monitor Chronic pain 41780316 G8 9.29 gabapentin 600 mg tidtramado l 50 mg prn dailymulti ple allergies notedwill monitor and consider if needed Harmful pa ttern of use of multiple substances 815736711 F19.10 Most often cocaine per hx with overdoses notedConti nue counseling while here and encourage abstinence and outpt f/u. Asthma 449248867 J45.90 9 advair 2 puff bidalbuter ol 2 puffs q 6 hours prn wheezingMo nitor resp. status for change Viral hepatitis C 414917 07 B18.2 fu with labscurren tly stable liver enzymesmon itor Moderate protein-calorie malnutrition (weight for age 60-74 percent of standard) 212505108 E44.0 now on PEG tube with feedings at 60cc/hrRef er to marketing director assisted living here.Seen by in hosp, unclear why he has dysphagia and difficulty eating with workup including EGD at [facility] recentlysp eech eval and treat here to see if he can take po intakemoni tor Anemia 791220727 D64.9 ferrous gluconate 324 dailymonit or cbc weekly Adult fail ure to thrive syndrome 321958948 R62.7 g tube feedings and meds through g tube at 60cc/hrfai lure to thrive with supplement s in pastspeech to eval and treat, consider reintroduc ing foods when ableweight s weeklymoni tor Insomnia 995610971 G47.0 9 benedryl 25 mg qhsmonitor [id number] Leilani Romeo MD [address] [place] [address] 08/06/2023 16:28:34 08/08/2023 11:16:44 Adult failure to thrive syndrome 194471394 R62.7 With marked wt. loss over past few months.Con tinue Jevity 1.0 or 1.2 tanya/ml at 60 ml/hr.Stil l unable to swallow, unknown reason.Con momo NURSE RESEARCH interventi ons to hopefully enable him to eat again.Cait gardner wts and labs. Moderate protein-calorie malnutrition (weight for age 60-74 percent of standard) 441838907 E44.0 As above. Human immunodeficiency virus infection 83858925 B20 Last labs show zero viral load.Sam nue Biktarvy (bictegrav ir, emtricitab ine & tenofovir alafenamid e) 50-200-25m g QDF/U with ID as planned. Asthenia 51055464 R53.1 Very deconditio armen.Needs PT/OT for strengthen ing, balance, gait training, safety and function.C ontinue fall precaution s.Monitor for safety. Essential hypertension 30660236 I10 BP running low since here, should improve as nutritiona l status improves.C ontinue amlodipine 5 mg qdMonitor BP and labs. Gastroesop hageal reflux disease without esophagitis 186307848 K21.9 On no meds.I wonder if starting a PPI may help with throat pain?Monit or Chronic pain 63678051 G8 9.29 No c/o tonight.Co ntinue gabapentin 600 mg TID and tramadol 50 mg qd prnMonitor sxs. Asthma 490651479 J45.30 Asthma meds transcribe d incorrectl y on admission here.Was not put on Advair, but rather only albuterol/ budesonide prn.Will restart Advair 230/21 mcg two puffs BIDMonitor resp. status Anemia 884141443 D64.89 Not currently anemic.Con tinue ferrous gluconate 324 mg qdMonitor labs Mixed anxi ety and depressive disorder 280241284 F41.8 Mood stable.Con tinue risperidon e 3 mg qhs, mirtazapin e 60 mg qhs, and clonazepam 1 mg qd.Monitor mood.Psych consult prn. Viral hepatitis C 900310 07 B18.2 Unclear hx.LFTs WNL.F/U as outpt. Harmful pa ttern of use of multiple substances 869327959 F19.10 Most often cocaine, but sometimes other things.Con tinue counseling and encourage abstinence and outpt f/u. Dysphagia 64483452 R13.1 9 Unknown etiology.C ontinue G-tube feeding as above.Cons ider ENT consult. [id number] Maryjane Glover NP [address] [address] 08/16/2023 12:26:03 08/22/2023 11:29:11 Adult failure to thrive syndrome 304802157 R62.7 With marked wt. loss over past few months.Con braydenueJevit y 1.5 tanya/ml at 60 ml/hr. marketing director assisted living following and will adjust as neededStil l unable to swallow, unknown reason.Mehrdad barr NURSE RESEARCH interventi ons to hopefully enable him to eat again.Cait tor wts and labs. Dysphagia 54473361 R13.1 9 Unknown etiology.C ontinue G-tube feeding as above.Cons ider ENT consult. Moderate protein-calorie malnutrition (weight for age 60-74 percent of standard) 272429936 E44.0 As above. Human immunodeficiency virus infection 97134372 B20 Last labs show zero viral load.Sam nueBiktarv y (bictegrav ir, emtricitab ine & tenofovir alafenamid e) 50-200-25m g QDF/U with ID as planned. Asthenia 96971207 R53.1 Very deconditio armen.Needs PT/OT for strengthen ing, balance, gait training, safety and function.C ontinue fall precaution s.Monitor for safety. Essential hypertension 77742352 I10 BP running low since here, should improve as nutritiona l status improves.a mlodipine 5 mg qdMonitor BP and labs. Gastroesop hageal reflux disease without esophagitis 763918876 K21.9 no meds.Monit or Chronic pain 82837559 G8 9.29 has mild headache todayConti nuegabapen tin 600 mg TIDtramado l 50 mg qd prnMonitor sxs. Asthma 788702846 J45.30 Asthma meds transcribe d incorrectl y on admission here.albut maddi/budes onide prn.Advair 230/21 mcg two puffs BIDMonitor resp. status Anemia 926919565 D64.89 Not currently anemic.juan carlos l order cbc and bmp weekly [id number] gluconate 324 mg qdMonitor labs Mixed anxi ety and depressive disorder 508522534 F41.8 Mood stable.ris peridone 3 mg qhsmirtaza pine 60 mg qhs,clonaz epam 1 mg qd.Monitor mood.Psych consult prn. Viral hepatitis C 272242 07 B18.2 Unclear hx.LFTs WNL.F/U as outpt. Harmful pa ttern of use of multiple substances 339624832 F19.10 Most often cocaine, but sometimes other things.Mehrdad barr counseling and encourage abstinence and outpt f/u. [id number] Maryjane Glover NP [address] [address] 08/22/2023 11:06:38 08/28/2023 14:23:57 Adult failure to thrive syndrome 688165313 R62.7 With marked wt. loss over past few months.Con momoJevit y 1.2 tanya/ml at 67ml/hr. marketing director assisted living following and will adjust as neededStil l unable to swallow, unknown reason.Mehrdad barr NURSE RESEARCH interventi ons to hopefully enable him to eat again.Cait tor wts and labs.08/22 marketing director assisted living to assess if bolus feedings can be attempted for homefamily /pt needs g tube care/teach ing for ? dc homemonito r Asthenia [id number] R53.1 Very deconditio armen, improving every week with therapyNee ds PT/OT for strengthen ing, balance, gait training, safety and function.C ontinue fall precaution s.Monitor for safety. Dysphagia 74997456 R13.1 9 Unknown etiology.C ontinue G-tube feeding as above.Cons ider ENT consult. Anemia 765265338 D64.89 Not currently anemic.juan carlos scales order cbc and bmp weekly g3zlfsssd gluconate 324 mg qdMonitor labs Moderate protein-calorie malnutrition (weight for age 60-74 percent of standard) 093005288 E44.0 As above. Human immunodeficiency virus infection 28304494 B20 ContinueBi ktarvy (bictegrav ir, emtricitab ine & tenofovir alafenamid e) 50-200-25m g QDF/U with ID as planned. Essential hypertension 28663826 I10 BP now improving as nutritiona l status improves.1 10s-130s /60scontam lodipine 5 mg qdMonitor BP and labs. Gastroesop hageal reflux disease without esophagitis 058445217 K21.9 no meds.Monit or Chronic pain 05618102 G8 9.29 headache resolvedCo ntinuegaba pentin 600 mg TID, no pain todaytrama dol 50 mg qd prnMonitor sxs. Asthma 784511510 J45.30 Asthma meds transcribe d incorrectl y on admission here.albut maddi/budes onide prn.Advair 230/21 mcg two puffs BIDMonitor resp. status Mixed anxi ety and depressive disorder 367032312 F41.8 Mood stable and ding wellrisper idone 3 mg qhsmirtaza pine 60 mg qhs,clonaz epam 1 mg qd.Monitor mood.Psych consult prn. [id number] Maryjane Glover NP [address] [address] 08/29/2023 08:14:48 08/30/2023 19:42:34 Adult failure to thrive syndrome 357416860 R62.7 With marked wt. loss over past few months.Con tinueJevit y 1.2 tanya/ml at 67ml/hr. marketing director assisted living following and will adjust as neededStil l unable to swallow, unknown reason.per speech eval: no eating or drinkingMo nitor wts and labs.08/22 marketing director assisted living to assess if bolus feedings can be attempted for homefamily /pt needs g tube care/teach ing for ? dc homemonito r110/30 awaiting marketing director assisted living to calculate gtube feedings and start Asthenia 08196028 R53.1 Very deconditio armen, improving every week with therapyNee ds PT/OT for strengthen ing, balance, gait training, safety and function.C ontinue fall precaution s.Monitor for safety. Dysphagia 46027192 R13.1 9 Unknown etiology.C ontinue G-tube feeding as above.Cons ider ENT consult. Anemia 397331883 D64.89 Not currently anemic.juan carlos l order cbc and bmp prn, labs stableferr ous gluconate 324 mg qdMonitor labs Moderate protein-calorie malnutrition (weight for age 60-74 percent of standard) 215376713 E44.0 As above. Human immunodeficiency virus infection 99845260 B20 ContinueBi ktarvy (bictegrav ir, emtricitab ine & tenofovir alafenamid e) 50-200-25m g QDF/U with ID as planned. Essential hypertension 69371717 I10 BP now improving as nutritiona l status improves.1 conta mlodipine 5 mg qdMonitor BP and labs. Gastroesop hageal reflux disease without esophagitis 024432793 K21.9 no meds.Monit or Chronic pain 77067834 G8 9.29 headache resolvedCo ntinuegaba pentin 600 mg TID, no pain todaytrama dol 50 mg qd prnMonitor sxs. Asthma 600961346 J45.30 Asthma meds transcribe d incorrectl y on admission here.albut maddi/budes onide prn.Advair 230/21 mcg two puffs BIDMonitor resp. status Mixed anxi ety and depressive disorder 613318933 F41.8 Mood stable and ding wellrisper idone 3 mg qhsmirtaza pine 60 mg qhs,clonaz epam 1 mg qd.Monitor mood.Psych consult prn. Neck pain 13041966 M54.2 incidental neck pain, states slept on it wrongnsg giving tyl, tramadol and gabapentin reposition neckmonito r for relief [id number] Dilia Hutchinson [address] [address] 09/07/2023 05:15:43 09/13/2023 10:39:11 Adult failure to thrive syndrome 849906078 R62.7 With marked wt. loss over past few months.Con tinueJevit y 1.2 tanya/ml at 67ml/hr. marketing director assisted living following and will adjust as neededStil l unable to swallow, unknown reason.Con braydenue NURSE RESEARCH interventi ons to hopefully enable him to eat again.Cait tor wts and labs.recei deborah education on gt feeds, SW working on VNA set up for [facility] GT site daily with NS and dry. apply 2x2 to sitemonito r Asthenia 77466575 R53.1 Very deconditio armen, improving every week with therapyNee ds PT/OT for strengthen ing, balance, gait training, safety and function.C ontinue fall precaution s.Monitor for safety. Dysphagia 03637831 R13.1 9 Unknown etiology.C ontinue G-tube feeding as above.Cons ider ENT consult. Anemia 262728316 D64.89 Not currently anemic.juan carlos l order cbc and bmp weekly u3ypwcoxc gluconate 324 mg qdMonitor labs Moderate protein-calorie malnutrition (weight for age 60-74 percent of standard) 468843116 E44.0 As above. Human immunodeficiency virus infection 79013402 B20 ContinueBi ktarvy (bictegrav ir, emtricitab ine & tenofovir alafenamid e) 50-200-25m g QDF/U with ID as planned. Essential hypertension 45311094 I10 BP now improving as nutritiona l status improves.1 10s-130s /60scontam lodipine 5 mg qdMonitor BP and labs. Gastroesop hageal reflux disease without esophagitis 420692216 K21.9 no meds.Monit or Chronic pain 03710521 G8 9.29 headache resolvedCo ntinuegaba pentin 600 mg TID, no pain todaytrama dol 50 mg qd prnMonitor sxs. Asthma 914649513 J45.30 Asthma meds transcribe d incorrectl y on admission here.albut maddi/budes onide prn.Advair 230/21 mcg two puffs BIDMonitor resp. status Mixed anxi ety and depressive disorder 512657751 F41.8 Mood stable and ding wellrisper idone 3 mg qhsmirtaza pine 60 mg qhs,clonaz epam 1 mg qd.Monitor mood.Psych consult prn. [id number] Maryjane Glover NP [address] [address] 09/12/2023 18:08:08 09/14/2023 11:17:17 Adult failure to thrive syndrome 006051081 R62.7 With marked wt. loss over past [...] dry. apply 2x2 to sitemonito r Asthenia 72583976 R53.1 Very deconditio armen, improving every week with therapyNee ds PT/OT for strengthen ing, balance, gait training, safety and function.C ontinue fall precaution s.Monitor for safety. Dysphagia 26421079 R13.1 9 Unknown etiology.C ontinue G-tube bolus feeding as above.FEES test on Sundayneed s cxr to rule out pna from foods and drinks in room despite recommenda tionConsid er ENT consult. Moderate protein-calorie malnutrition (weight for age 60-74 percent of standard) 955419954 E44.0 As above. Human immunodeficiency virus infection 58957584 B20 ContinueBi ktarvy (bictegrav ir, emtricitab ine & tenofovir alafenamid e) 50-200-25m g QDF/U with ID as planned. Essential hypertension 00172835 I10 BP now improving as nutritiona l status improves.1 10s-130s /60scontam lodipine 5 mg qdMonitor BP and labs. Asthma 552922138 J45.30 no wheezing noted on exam, stablealbu terol/bude sonide prn.Advair 230/21 mcg two puffs BIDMonitor resp. status Mixed anxi ety and depressive disorder 916909986 F41.8 Mood stable and ding wellrisper idone 3 mg qhsmirtaza pine 60 mg qhs,clonaz epam 1 mg qd.Monitor mood.Psych consult prn. [id number] MAURO DUFFY NP [address] [address] 09/18/2023 08:57:08 09/25/2023 10:49:09 Adult failure to thrive syndrome 489509117 R62.7 With marked wt. loss over past few months due to difficulty swallowing .G tube placed 07/30/23 at [facility].Contin ue osmolite 1.2 tanya/ml 410 cc qid bolus tube feedings upon d/c home.Seen by NURSE RESEARCH - now on puree diet with thin liquids - may continue at homeContin ue to monitor weights and intake at home Asthenia 52649428 R53.1 Improved, meeting rehab goals for d/c home today with support of services.C ontinue fall precaution s.Monitor for safety as outpt. Dysphagia 63541089 R13.1 9 Unknown etiology.S ee above.[facility] w on pureed diet, thin liquidsMon itor intake, s/s aspiration as outpt. Moderate protein-calorie malnutrition (weight for age 60-74 percent of standard) 595661270 E44.0 As above. Human immunodeficiency virus infection 24955926 B20 ContinueBi ktarvy (bictegrav ir, emtricitab ine & tenofovir alafenamid e) 50-200-25m g QDF/U with ID as planned. Essential hypertension 58301393 I10 continue amlodipine 5 mg qdMonitor BP as outpt. Asthma 698926438 J45.30 no wheezing noted on exam, stablecont inue Advair 230/21 mcg two puffs BID and albuterol/ budesonide prn.Monito r resp. status as outpt. Mixed anxi ety and depressive disorder 859245071 F41.8 Mood stable and doing wellContin ue home medsrisper idone 3 mg qhsmirtaza pine 60 mg qhsclonaze david 1 mg qdMonitor mood, behaviors as outpt. Chronic pain 09681840 G8 9.29 continue gabapentin 600 mg tid, ultram 50 mg qd prnmonitor asoutpt. Anemia 829706383 D64.89 remains on daily FeMonitor CBC,s/s active bleeding Health Concerns Section Related Observation LastModified by Organization Detai ls LastModified Time None Recorded Concern Status LastModified by Organization Details LastModified Time None Recorded Advance Directives Directive Y: Payers Insurance Date Sequence Insurance Name Policy Number Policy Perry Covered Member ID Perry Member ID Guarantor Name 09/25/2023 1 [facility] - DOS ON OR AFTER 2022 - MEDICARE ADVANTAGE [place] (MEDICARE REPLACEMENT/ADV ANTAGE - PPO) Benjamin Fall [id number] Benjamin Fall Notes Date Note Type Note [...] other concerns. Note: He was admitted to [facility] ED for similar concerns earlier this month [...] code signed 01/17/23 Maryjane Glover NP [address] [facility], [address], [place], [address], [facility] [employer] 08/22/2023 11:24:08 08/29/2023 text/html Patient seen for an 30 routine rounding visit. Past medical history significant for HIV, history of hep C, depression, asthma, history lung abscess 2020, fall, several overdoses noted in hx. dysphagia seen for difficulty swallowing ultimately diagnosed with failure to thrive and PEG tube placed. Benjamin was admitted to [facility] ED for difficulty swallowing and underwent EGD [...] from hospital to rehab. While here at [facility]: Pt is 107.6 lbs and [...] disconnect his feedings without difficulty here. Awaiting marketing director assisted living to calculate bolus feedings and start them [...] code signed 01/17/23 Maryjane Glover, LADAN [address] [facility], [address], [place], [address], [facility] [employer] 08/29/2023 13:39:07 09/07/2023 text/html ROS as noted [...] other concerns. Note: He was admitted to [facility] for similar concerns earlier this month [...] MOLST: Full code signed 01/17/[address], [address], [place], [address], [facility] [employer] 09/07/2023 13:21:25 09/12/2023 text/html ROS as noted [...] code signed 01/17/23 Maryjane Glover NP [address] [facility], [address], [place], [address], [employer] 09/12/2023 19:33:00 09/18/2023 text/html Benjamin is seen today for discharge. He is going home today with support of services. He is a 58 yo man [address] to [facility] 08/02/23 from [facility] for continued care and rehab after a hospitalization related to malnutrition and FTT.He presented to [facility] 07/27 reporting throat pain and the inability to swallow.Swallowing issues problematic prior to this presentation, had EGD with Dr. Dodson 07/17, results c/w mild candidiasis normal stomach and duodenum. He was also seen by NURSE RESEARCH, diet changed to NND1 and nectar thick liquid. Due to ongoing swallowing issues at home, he returned to [facility] ER.A g-tube was placed on 07/30, cause of dysphagia unclear. Kept NPO, and sent here for rehab. While here, Benjamin has done well.Worked with PT/OT, meeting goals for d/c home.Also worked with NURSE RESEARCH and marketing director assisted living - now tolerating puree diet with thin [...] also, possibly inadvertently). MAURO DUFFY NP [address] [facility], [address], [place], [address], [employer] 09/18/2023 09:47:21
--- OUTSIDE RECORDS SUMMARY | 2025-06-09 13:14 | XMS_ITS | Encounter Summary ---
Author Organization [facility] Address [address] [place] [address] Care Team Providers Care Drier Feeder Name Role Phone Physician, Pcp Unknown Primary Care Provider Bina vailable Encounter Details Date Type Department Care Team ([facility] Contact Info) Description 03/10/2025 Lab Requisition [facility] - Main Lab [address] [facility] [place] [address] MD [address] [place] [address] Unspecified abnormal cytological findings in specimens from [...] Encounters Date Type Department Care Team ([facility] Contact Info) Description 07/07/2025 10:15 AM EDT Office Visit Orthopedic Surgery - [place] [address] [address] Kb Benitez DPM [address] [address] documented as of this encounter Procedures Procedure [...] EDT) Final Diagnosis Specimen sent to [facility] for Anal cytology with HPV CoTest. Their interpretation is as follows: Anal, Rectum (ThinPrep): Satisfactory for Evaluation. Transformation zone components absent. Negative for Intraepithelial Lesion or Malignancy. Disclaimer This test has been modified from the sheet metal worker supervisor's instructions. Its performance characteristics were determined by [facility] in a manner consistent with CLIA requirements. This test has not been cleared or approved by the U.S. Food and Drug Administration Report signed electronically by: Qi Lehman M.D. on 16 Mar 2025 at 13:55 at [facility], [address] [facility] (CLIA [id number]) HPV Anal Detect/Genotyping, PCR: High Risk HPV [...] ordered in the context of a [facility] Non-MASTICATOR Cytology case; this result should be interpreted within the context of the Non-MASTICATOR cytology report. Resulted 12 Mar 2025 at 17:00 by [facility], [address] [facility] (CLIA [id number]) Full report attached. 03/17/2025 2:31 PM EDT [facility] Disclaimer Unless otherwise specified, all tissue is 10% NB formalin fixed and paraffin embedded. Technical cytopathology services provided by [facility], at [address] [place] [address] (CLIA # [id number]/Angel Villalobos MD, Communications Maintainer.) 03/17/2025 2:31 PM EDT [facility] Brushing/Spatula Anal structure / Unknown 03/09/2025 03/10/2025 9:22 AM EDT us [address] MD LAB CYTOLOGY ORDERABLES F inal Result [facility] [address] [place] [address], documented in this encounter Visit Diagnoses Diagnosis Unspecified abnormal cytological findings in specimens from anus documented in this encounter Care Teams Drier Feeder Relationship Specialty Start Date End Date Physician, Pcp Unknown PCP - General 03/10/25 documented as of this encounter
--- OUTSIDE RECORDS SUMMARY | 2025-06-09 13:14 | XMS_ITS | Clinical Summary ---
Author Organization [facility] Address [address] [place] [address] Care Team Providers Care Correspondence Representative Name Role Phone Zora Arce PA-C Primary Care Provider [phone] Source Comments PLEASE NOTE, if this patient [...] as needed for anxiety. 60 Tab 1 015 Active diphenhydrAMINE (BENADRYL) 25 mg capsuleIndications: Primary insomnia Take 2 Caps by mouth nightly at bedtime as needed for itching. 30 Cap 6 015 Active aspirin 81 mg EC tabletIndications:H IV (human immunodeficiency virus infection) Take 1 Tab by mouth once daily. [...] NUTRITION) liquidIndications:H IV (human immunodeficiency virus infection) Take 1 Can by mouth 3 (three) [...] nasal sprayIndications:As thma, intermittent, uncomplicated Place 1 [place] into the nostril(s) as needed for congestion. [...] 01/27/2015 Generalized anxiety disorder 01/27/2015 Seizure disorder 01/27/2015 Major depressive disorder, r ecurrent, severe without psychotic features 01/27/2015 Overview (01/27/2015): Has therapist at [facility] HIV (human immunodeficiency virus infection) Chronic back pain 01/27/2015 Hepatitis C antibody [...] Fall Relation to Subscriber:Self Name:Benjamin Fall Payer ID:[id number] Group ID:Not on file Type:Medicaid Address: [address] Care Teams Correspondence Representative Relationship Specialty Start Date End Date Zora Arce PA-C [address] [place] [address] PCP - General 11/05/18
--- OUTSIDE RECORDS SUMMARY | 2025-06-09 13:14 | XMS_ITS | Encounter Summary ---
Author Organization [facility] Address [address] [place] [address] Care Team Providers Care Medical Billing Clerk Name Role Phone Physician, Pcp Unknown Primary Care Provider Bina vailable Encounter Details Date Type Department Care Team (Late Contact Info) Description 03/09/2025 Lab Requisition [facility] - Main Lab [address] [facility] [place] [address] MD [address] [place] [address] Candidal esophagitis ([facility] V24, [facility] V28) Social History Tobacco Use Types Packs/Day [...] Upcoming Encounters Date Type Department Care Team ([facility] Contact Info) Description 07/07/2025 10:15 AM EDT Office Visit Orthopedic Surgery - [place] 250 175 [facility] [address] [place] [phone] Kb Benitez DPM [address] [address] documented as of this encounter Procedures Procedure Name Priority Date/Time Associated Diagnosis Comments CULTURE FUNGUS, OTHER THAN SKIN HAIR OR NAILS Routine 03/09/2025 12:00 AM EDT Candidal esophagitis ([facility] V24, [facility] V28) CULTURE MISCELLANEOUS Routine 03/09/2025 12:00 AM EDT Candidal esophagitis ([facility] V24, [facility] V28) CHLAMYDIA TRACHOMATIS AND NEISSERIA GONORRHOEAE PCR Routine 03/09/2025 12:00 AM EDT Candidal esophagitis ([facility] V24, [facility] V28) documented in this encounter Results * (ABNORMAL) Culture fungus, other than skin hair or nails (03/09/2025 12:00 AM EDT) Culture, Fungus Yulia albicans(A) GALEN 03/18/2025 8:09 AM EDT [facility] Comment: Edited result: Previously reported as Yeast on 03/16/2025 at 1407 EDT. Swab Oral cavity structure / Unknown 03/09/2025 03/09/2025 6:[address] MD LAB MICROBIOLOGY - GENERA L ORDERABLES Final Result [facility] [address] [place] [address], [place] [phone] * (ABNORMAL) Culture miscellaneous (03/09/2025 12:00 AM EDT) Miscellaneous Culture Yulia albicans/dubl iniensis(A) GALEN 03/12/2025 10:54 AM EDT [facility] Comment: Edited result: Previously reported as Yeast on 2025 at 1140 EDT. Miscellaneous Culture Klebsiella pneumoniae ssp pneumoniae(A) GALEN 03/12/2025 10:54 AM EDT [facility] Comment: The organism value for [...] MICROBIOLOGY - GENERA L ORDERABLES Final Result [facility] [address] [place] [address], * Chlamydia trachomatis and Neisseria gonorrhoeae molecular study (03/09/2025 12:00 AM EDT) Neisseria gonorrhoeae PCR Negative Negative LAB MOLECULAR DIAGNOSTICS METHOD 03/10/2025 8:49 AM EDT [facility] Chlamydia trachomatis PCR Negative Negative LAB MOLECULAR DIAGNOSTICS METHOD 03/10/2025 8:49 AM EDT [facility] Swab Rectum structure / Unknown 03/09/2025 03/09/2025 6:[address] MD LAB MICROBIOLOGY - GENERA L ORDERABLES Final Result Performing Organization Address City/[facility]/ZIP Co de Phone Number [facility] [address] [place], [place] [address] [phone] documented in this encounter Visit Diagnoses Diagnosis Candidal esophagitis ([facility] V24, [facility] V28) Candidiasis of the esophagus documented in this encounter Care Teams Medical Billing Clerk Relationship Specialty Start Date End Date Physician, Pcp Unknown PCP - General 03/10/25 documented as of this encounter
--- OUTSIDE RECORDS SUMMARY | 2025-06-09 13:14 | XMS_ITS | Clinical Summary ---
Author Organization 175 [facility] Address 175 [place] [address] Phone Care Team Providers Care Materials Director Name Role Phone Physician, Pcp Unknown Primary [...] Orthopedic Surgery [facility] [address] [phone] Kb Benitez A, DPM Pain in toes of both feet (Primary Dx); Metatarsalgia of right foot; Arthritis of both feet; Dermatophytosis, nail; Contracture, left foot 05/12/[address] [facility] [address] [phone] Kb Benitez, DPM 05/05/2025 9:45 AM EDT Consult Orthopedic Surgery [facility] [address] [phone] Kb Benitez A, DPM Pain in toes of both feet (Primary Dx); Arthritis of both feet; Metatarsalgia of right foot; Onychogryphosis; Dermatophytosis, nail 03/10/2025 Lab Requisition [facility] [address] [place] [address] MD Unspecified abnormal cytological findings in specimens from anus 03/09/2025 Lab Requisition [facility] [address] [place] [address] MD Candidal esophagitis ([facility] V24, [facility] V28) from Last 3 Months Surgical History Surgery Date Site/Laterality Comments EYE SURGERY Left PROCEDURE: HISTORICAL EYE SURGERY OTHER SURGICAL HISTORY PROCEDURE: ---- OTHER ----; COMMENT: hemorrhoids Medical History Medical History Date Comments Seizures ([facility] V24, [facility] V28) 06/29/2016 DX:Seizures ([facility]); COMMENT: F/u with neuro at [place] Dr Costello HIV (human immunodeficiency virus infection) ([facility] V2, [facility] V28) 06/29/2016 DX:HIV (human im munodeficiency virus infection) ([facility]); COMMENT: HIV dx in 1991, f/u Dr. Street Depression 06/29/2016 DX:Depression Anxiety 06/29/2016 DX:Anxiety; COMM ENT: F/u [facility] Counseling Chronic back pain 06/29/2016 DX:Chronic [...] Upcoming Encounters Date Type Department Care Team ([facility] st Contact Info) Description 07/07/2025 10:15 AM EDT Office Visit Orthopedic Surgery - [place] [address] [place] [address] [address] [place] [address] Kb Benitez, DPM [address] [address] Health Maintenance Due Date Last Done Comments [...] Routine 03/09/2025 12:00 AM EDT Candidal esophagitis ([facility] V24, [facility] V28) CULTURE MISCELLANEOUS Routine 03/09/2025 12:00 AM EDT Candidal esophagitis ([facility] V24, [facility] V28) CHLAMYDIA TRACHOMATIS AND NEISSERIA GONORRHOEAE PCR Routine 03/09/2025 12:00 AM EDT Candidal esophagitis ([facility] V24, [facility] V28) from Last 3 Months [...] Yulia albicans(A) GALEN 03/18/2025 8:[address] [facility] Comment: Edited result: Previously reported as Yeast on 03/16/2025 at 1407 EDT. Swab Oral cavity structure / Unknown 03/09/2025 03/09/2025 6:57 PM EDT us [address]iola [address] MD LAB MICROBIOLOGY - GENERA L ORDERABLES Final Result [facility] [address] [place] [address], [place] [phone] * (ABNORMAL) Culture miscellaneous (03/09/2025 12:00 AM EDT) Miscellaneous Culture Yulia albicans/dubl iniensis(A) GALEN 03/12/2025 10:[address] [facility] Comment: Edited result: Previously reported as Yeast on 2025 at 1140 EDT. Miscellaneous Culture Klebsiella pneumoniae ssp pneumoniae(A) GALEN 03/12/2025 10:[address] [facility] Comment: The organism value for [...] MICROBIOLOGY - GENERA L ORDERABLES Final Result [facility] [address] [place] [address], [place] [phone] * Chlamydia trachomatis and Neisseria gonorrhoeae molecular study (03/09/2025 12:00 AM EDT) Neisseria gonorrhoeae PCR Negative Negative LAB MOLECULAR DIAGNOSTICS METHOD 03/10/2025 8:[address] [facility] Chlamydia trachomatis PCR Negative Negative LAB MOLECULAR DIAGNOSTICS METHOD 03/10/2025 8:[address] [facility] Swab Rectum structure / Unknown 03/09/2025 03/09/2025 6:[address] MD LAB MICROBIOLOGY - GENERA L ORDERABLES Final Result Performing Organization Address City/[facility]/ZIP Co de Phone Number [facility] [address] [place] [address], [place] [phone] * Non-gynecologic cytology (03/09/2025 12:00 AM EDT) Final Diagnosis Specimen sent to [facility] for Anal cytology with HPV CoTest. Their interpretation is as follows: Anal, Rectum (ThinPrep): Satisfactory for Evaluation. Transformation zone components absent. Negative for Intraepithelial Lesion or Malignancy. Disclaimer This test has been modified from the smoking pipe liner's instructions. Its performance characteristics were determined by [facility] in a manner consistent with CLIA requirements. This test has not been cleared or approved by the U.S. Food and Drug Administration Report signed electronically by: Qi Lehman M.D. on 16 Mar 2025 at 13:55 at [facility], [address] [place] [address] (CLIA [id number]) HPV Anal Detect/Genotyping, PCR: High Risk HPV [...] in the context of a [facility] Non-STEEL ENGRAVER Cytology case; this result should be interpreted within the context of the Non-STEEL ENGRAVER cytology report. Resulted 12 Mar 2025 at 17:00 by [facility], [address] [place] [address] (CLIA [id number]) Full report attached. 03/17/2025 2:[address] [facility] Disclaimer Unless otherwise specified, all tissue is 10% NB formalin fixed and paraffin embedded. Technical cytopathology services provided by [facility], at [address] [place] [address] (CLIA # [id number]/Angel Villalobos MD, Supervisor Spring Up.) 03/17/2025 2:[address] [facility] Brushing/Spatula Anal structure / Unknown 03/09/2025 03/10/2025 9:[address] MD LAB CYTOLOGY ORDERABLES F inal Result [facility] [address] [place] [address], from Last 3 Months Insurance MEDICAID - [place] [employer] MEDICARE Member Subscriber Plan / Payer (Ef fective 2017-Present) Name:DUFFY VICKIE BLAS Relation to Subscriber:Self Name:Vickie Duffy Payer ID:[id number] Group ID:[id number] Type:Not on file Address: [address] [place] [address] Care Teams Materials Director Relationship Specialty Start Date End Date Physician, Pcp Unknown PCP - General 03/10/25
== END 2025-06-09 12:41 | disposition home or self-care (01) ==
LOC: HO.HSM 11:58
PROVIDERS: PCP Student in an Organized Health Care Education/Training Program; Visit Provider Psychiatry & Neurology Neurology
DX: G44.209 Tension-type headache, unspecified, not intractable (principal); G25.9 Extrapyramidal and movement disorder, unspecified
CPT/HCPCS: 99214

== ENCOUNTER → 2025-06-09 11:58 | Outpatient (BNVA) | payer OTHER, SELFPAY | PROVIDERS: PCP Student in an Organized Health Care Education/Training Program; Visit Provider Psychiatry & Neurology Neurology | DX: G44.209 Tension-type headache, unspecified, not intractable (principal); G25.9 Extrapyramidal and movement disorder, unspecified | CPT/HCPCS: 99212 ==

== ENCOUNTER 2025-06-10 09:15 | Outpatient (AMB) | payer OTHER, SELFPAY ==
--- NOTE | 2025-06-10 09:42 | AM.OFFVISNUR ---
Intake Visit Reasons: Evenity #9 Allergies Seasonal Allergies Allergy (Intermediate, Verified 05/27/25 10:44) Eye Drainage codeine (From Tylenol-Codeine #3) Allergy (Mild, Verified 05/27/25 10:44) Rash levofloxacin (From Levaquin) Allergy (Mild, Verified 05/27/25 10:44) Rash metoclopramide (From Reglan) Allergy (Mild, Verified 05/27/25 10:44) Rash acetaminophen (Tylenol-Codeine #3) Allergy (Unknown, Verified 05/27/25 10:44) Rash Penicillins (PENICILLINS) Allergy (Unknown, Verified 05/27/25 10:44) Rash ibuprofen (From Motrin) Adverse Reaction (Unknown, Verified 05/27/25 10:44) Reflux Office Meds romosozumab-aqqg 210 mg/2.34 mL(105 mg/1.17 mL x2)subcutaneous syringe Performing Provider: Ritu Scott MD Performing Location: [facility] Endocrinology Administered by: Na Croft RN on 06/10/25 09:42 Dose Route Admin Location Dispensed Lot Number Expiration Date [facility] Cloth Bin Packer 210 mg subcut bilateral upper arms 2.34 mL [id number] 08/09/27 26772-228-07 [employer] Total Dispensed Waste 2.34 mL 0 % Comments: No adverse reactions reported from previous injection. Pt tolerated injection well. Pt scheduled in 4 weeks for next appt. No further questions at this time. Assessment & Plan Assessment & Plan Orders: Orders AMB Romosozumab Injection Patient Supplied Today M81.0 - Age-related osteoporosis without current pathological fracture Coding
--- OUTSIDE RECORDS SUMMARY | 2025-06-10 10:03 | XMS_ITS | Clinical Summary ---
Author Organization [facility] Address [address] [place] [address] Care Team Providers Care Fixing Carpenter Name Role Phone Zora Arce PA-C Primary Care Provider [phone] Source Comments PLEASE NOTE, if this patient [...] nasal sprayIndications:As thma, intermittent, uncomplicated Place [address] [place] into the nostril(s) as needed for congestion. [...] features 01/27/2015 Overview (01/27/2015): Has therapist at [facility] HIV (human immunodeficiency virus infection) Chronic [...] Plan of Treatment Not on file Insurance [place] - [place] Member Subscriber Plan / Payer ( fective 2015-Present) Name:Benjamin Fall Relation to Subscriber:Self Name:Benjamin Fall Payer ID:[id number] Group ID:Not on file Type:Medicaid Address: [address] DENTAL Care Teams Fixing Carpenter Relationship Specialty Start Date End Date Zora Arce PA-C [address] [place] [address] PCP - General 11/05/18
--- OUTSIDE RECORDS SUMMARY | 2025-06-10 10:03 | XMS_ITS | Encounter Summary ---
Author Organization [facility] Address [address] [place] [address] Care Team Providers Care Police Guard Name Role Phone Physician, Pcp Unknown Primary Care Provider Bina vailable Encounter Details Date Type Department Care Team (Late Contact Info) Description 03/09/2025 Lab Requisition [facility] [address] [facility] [place] [address] MD [address] [place] [address] Candidal esophagitis ([facility] V24, [facility] V28) Social History Tobacco Use Types Packs/Day [...] [facility] Contact Info) Description 07/07/2025 10:15 AM EDT Office Visit Orthopedic Surgery - [place] 250 175 [facility] [address] [place] [phone] Kb Benitez DPM [address] [address] documented as of this encounter Procedures Procedure Name Priority Date/Time Associated Diagnosis Comments CULTURE FUNGUS, OTHER THAN SKIN HAIR OR NAILS Routine 03/09/2025 12:00 AM EDT Candidal esophagitis ([facility] V24, [facility] V28) CULTURE MISCELLANEOUS Routine 03/09/2025 12:00 AM EDT Candidal esophagitis ([facility] V24, [facility] V28) CHLAMYDIA TRACHOMATIS AND NEISSERIA GONORRHOEAE PCR Routine 03/09/2025 12:00 AM EDT Candidal esophagitis ([facility] V24, [facility] V28) documented in this encounter Results * [...] Result [facility] [address] [place] [address], [place] [phone] * (ABNORMAL) Culture miscellaneous (03/09/2025 12:00 AM [...] Result [facility] [address] [place] [address], * Chlamydia trachomatis and Neisseria gonorrhoeae molecular [...] L ORDERABLES Final Result Performing Organization Address City/[facility]/ZIP Co de Phone Number [facility] [address] [place], [place] [address] [phone] documented in this encounter Visit Diagnoses Diagnosis Candidal esophagitis ([facility] V24, [facility] V28) Candidiasis of the esophagus documented in this encounter Care Teams Police Guard Relationship Specialty Start Date End Date Physician, Pcp Unknown PCP - General 03/10/25 documented as of this encounter
--- OUTSIDE RECORDS SUMMARY | 2025-06-10 10:03 | XMS_ITS | Data Portability ---
Author Organization LYNN WHITE MD [facility], Main Office Address [address] [place] [phone] Assessment No assessment recorded. Plan of Treatment Reminders Order Date Submit Date Provider Last Modified By Organization Details Last Modified Time Details Appointments B20 FOLLOW UP 2024 11:00A Wilmer Levin MD Not available Not available Not available Lab HPV DNA, high-ris k, anal [address], [address] [place] [address], [id number], 03/09/2025 16:00:58 pap, LB, anal [address], [address] [place] [address], [id number], 03/09/2025 16:01:16 chlamydi a + gonorrhe a DNA panel, unspecif ied specimen [address], [address] [place] [address], [id number], 03/09/2025 16:00:03 culture, throat [address], [address] [place] [address], [id number], 03/09/2025 16:02:43 Referral None recorded . Procedures None recorded . Surgeries None recorded . Imaging None recorded . Medication Orders clotrima zole 10 mg klaudia 2024 025 [id number], [address] [place], [address], 04/13/2025 20:54:02 fluconaz ole 100 mg tablet 2024 025 [facility], [address] [place] [address], [address], 04/13/2025 20:54:03 Biktarvy 50 mg-200 mg-25 mg tablet 2024 025 [facility] [address] [place] [address], [address], 04/14/2025 17:57:16 clotrima zole 10 mg klaudia [address] [facility] [address] [place] [address], [address], 03/09/2025 10:06:11 fluconaz ole 100 mg tablet 2024 025 [facility], [address] [place] [address], [address], 03/09/2025 10:06:10 Biktarvy 50 mg-200 mg-25 mg tablet 2024 025 [facility] [address] [place] [address], [address], 03/09/2025 13:04:37 clotrima zole 10 mg klaudia 2024 025 [facility], [address] [place] [address], [address], 12/30/2024 16:32:25 Biktarvy 50 mg-200 mg-25 mg tablet 2024 025 [facility], [address] [place] [address], [address], 12/30/2024 16:32:25 clotrima zole 10 mg klaudia [address] [facility], [address] [place], [address], 11/25/2024 13:20:54 Benadryl 25 mg capsule [address] [facility] [address] [place], [address], 11/25/2024 13:20:55 Biktarvy 50 mg-200 mg-25 mg tablet 2024 025 [facility], [address] [place], [address], 11/25/2024 13:20:54 clotrima zole 10 mg klaudia [address] [facility] [address] [place], [address], 10/21/2024 14:29:45 Biktarvy 50 mg-200 mg-25 mg tablet [address] [facility] [address] [place], [address], 10/21/2024 14:30:45 Patient TargetsNo targets recorded. Patient Instructions Encounter Date Encounter Id Patient Instructions Last Modified By Organization Details Last Modified Time 10/21/2024 [id number] Clotrimazole Oral Lozenge (CLOTRIMAZOLE LOZENGE - MUCOUS [...] atori es - Labor atory - [address] [facility], [place], [place] [id number] Not Available [facility] [address] [place], [address], 03/10/2025 08:50:56 03/09/20 25 03/09/2025 CHLAM YDIA TRACH OMATI S AND NEISS ERIA GONOR RHOEA E MOLEC ULAR STUDY neisseria gonorrhoeae PCR Negati ve negati ve Not Available [facility] [address] [place] [address], [address], 03/10/2025 08:50:56 03/09/20 25 03/09/2025 CHLAM YDIA TRACH OMATI S AND NEISS ERIA GONOR RHOEA E MOLEC ULAR STUDY chlamydia trachomatis PCR Negati ve negati ve Not Available [facility] [address] [place] [address], [address], 03/10/2025 08:50:56 03/09/20 25 03/09/2025 CULTU RE MISCE LLANE OUS .note See Note Origi nal Order ing Provi carlito: DELGADO TAYLORO CHRISTOPHER [facility] - Labor atory - [address] [place] [address], [place]lywillian annealessandro [place], [place] [address] Not Available [facility] [address] [place] [address], [address], 03/10/2025 11:21:36 03/09/20 25 03/09/2025 CULTU RE MISCE LLANE OUS miscellaneou s culture YEAST abnormal Yeast Not Available [facility] [address] [place] [address], [address], 03/10/2025 11:21:36 03/09/20 25 03/09/2025 CULTU RE MISCE LLANE OUS .note See Note Origi nal Order ing Provi carlito: DELGADO JORDON T MARTO CHRISTOPHER [facility] - Labor atory - [address] [place], [place] [address]willian sparrow d, [place] [address] Not Available [facility] [address] [place] [address], [address], 03/10/2025 11:26:38 03/09/20 25 03/09/2025 CULTU RE MISCE LLANE OUS miscellaneou s culture YEAST abnormal Yeast Not Available [facility] [address] [place], [address], 03/10/2025 11:26:38 03/09/20 25 03/09/2025 CULTU RE MISCE LLANE OUS .note See Note Origi nal Order ing Provi carlito: DELGADO Rogel MARTO CHRISTOPHER [facility] - Labor atory - [address] [facility], [place] d, [facility] [place] [address] Not Available [facility] [address] [place], [address], 03/10/2025 13:02:10 03/09/20 25 03/09/2025 CULTU RE MISCE LLANE OUS miscellaneou s culture YEAST abnormal Yeast Not Available [facility] [address] [place] [address], [address], 03/10/2025 13:02:10 03/09/20 25 03/09/2025 CULTU RE FUNGU S, OTHER THAN SKIN HAIR OR NAILS .note See Note Origi nal Order ing Provi carlito: DELGADO TAYLORO CHRISTOPHER [facility] - Labor atory - [address] [facility], [place], [facility] [place] [address] Not Available [facility] [address] [place] [address], [address], 03/16/2025 14:09:09 03/09/20 25 03/09/2025 CULTU RE FUNGU S, OTHER THAN SKIN HAIR OR NAILS culture, fungus YEAST abnormal Yeast Not Available [facility] [address] [place] [address], [address], 03/16/2025 14:09:09 03/09/20 25 03/09/2025 THINP REP CYTOL OGY WITH HPV, ANAL .note See Note Origi nal Order ing Provi carlito: DELGADO Rogel MARTO CHRISTOPHER [facility] - Labor atory - [address] [facility], [place], [place] [address] Not Available [facility] [address] [place] [address], [address], 03/17/2025 14:23:11 03/09/20 25 03/09/2025 THINP REP CYTOL OGY WITH HPV, ANAL scan result See Scanne d Result Not Available [facility] [address] [facility], [place], [address], 03/17/2025 14:23:11 03/09/20 25 03/09/2025 NON-G YNECO LOGIC CYTOL OGY .note See Note Origi nal Order ing Provi carlito: DELGADO IA T MARTO CHRISTOPHER [facility] - Labor atory - [address] [facility], [place]arelyin gfiel d, [place] [address] Not Available [facility] [address] [facility], [place], [address], 03/17/2025 14:32:10 03/09/20 25 03/09/2025 NON-G YNECO LOGIC CYTOL OGY final diagnosis Specim en sent to [facility] joey for Anal cytolo gy with HPV [...] jurgen cteri stics were deter mined by [facility] c in a toribio r consi stent with CLIA requi remen ts. This test has not been clear ed or appro deborah by the U.S. Food and Drug Admin istra tion Repor t tamra d elect terry correia by: Qi judge M.D. on 16 Mar 2025 at 13:55 at [facility], [address], [place] (CLIA [id number] ) HPV Anal Detec t/Gen otypi ng, [...] ed in the diane xt of a [facility] Non-G YN Cytol ogy case; this resul t shoul d be inter prete d withi n the diane xt of the Non-G YN cytol ogy repor t. Resul lucho 12 Mar 2025 at 17:[address] [facility] Labor atori es, [address], [place] (CLIA [id number] ) Full repor t attac hed. Elect terry barboza d by Sintia wu MD on 025 at 2:31 PM Not Available [facility] [address] [place] [address], [address], 03/17/2025 14:32:10 03/09/20 25 03/09/2025 NON-G YNECO LOGIC CYTOL OGY disclaimer Unless otherw ise specif ied, all tissue is 10% NB formal in fixed and paraff in embedd ed. Techn ical cytop athol ogy servi surekha provi ded by Miguelina woods [facility], at [address], [place] [address] (CLIA # [id number] /Joe orourke MD, Medic al Direc tor.) Not Available [facility] [address] [place], [address], 03/17/2025 14:32:10 03/09/20 25 03/09/2025 CULTU RE FUNGU S, OTHER THAN SKIN HAIR OR NAILS .note See Note Origi nal Order ing Provi carlito: DELGADO SCHAEFFER CHRISTOPHER [facility] - Labor atory - [address] [facility], [place], [facility] [address] Not Available [facility] [address] [place], [address], 03/18/2025 08:10:44 03/09/20 25 03/09/2025 CULTU RE FUNGU S, OTHER THAN SKIN HAIR OR NAILS culture, fungus CANDID A ALBICA NS abnormal Julianna da albic ans Edite d resul t: Previ ously repor lucho as Yeast on 025 at 1407 EDT. Not Available [facility] [address] [place] [address], [address], 03/18/2025 08:10:44 Result Notes None recorded. 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 Active 1991 Human immunodefi ciency virus [HIV] disease; snomeddesc ription: Human immunodefi ciency virus infection; Report Immunity to Registry: Yes; Human immunodefi ciency virus infection; snomeddesc ription: Human immunodefi ciency virus infection; Report Immunity to Registry: Yes; Not Available [facility] 4 06:58:53 Anxiety 21624829 Active 1996 Anxiety; snomeddesc ription: Anxiety; Report Immunity to Registry: Yes; Not Available [facility] 4 06:58:54 Insomnia 526706513 Active 1996 Insomnia; Report Immunity to Registry: Yes; Not Available [facility] 4 06:58:57 Anxiety state 768050050 Active 1996 Anxiety state, unspecifie d; snomeddesc ription: Anxiety; Report Immunity to Registry: Yes; Not Available [facility] 4 06:58:57 Depressiv e disorder 59918702 Active 1996 Depressive disorder, not elsewhere classified ; snomeddesc ription: Depressive disorder; Report Immunity to Registry: Yes; Depressiv e disorder; snomeddesc ription: Depressive disorder; Report Immunity to Registry: Yes; Not Available [facility] 4 06:58:58 Arthritis 8998313 Active 1998 Arthritis; snomeddesc ription: Arthritis; Report Immunity to Registry: Yes; Notes: Osteoatrth ris multiple; Not Available [facility] 4 06:58:55 Arthropat hy 813806282 Active 1998 Arthropath y, unspecifie d, site unspecifie d; snomeddesc ription: Arthritis; Report Immunity to Registry: Yes; Notes: Osteoatrth ris multiple; Not Available [facility] 4 06:58:56 Sleep apnea 72949053 Active 1999 Sleep apnea; snomeddesc ription: Sleep apnea; Report Immunity to Registry: Yes; Unspecifi ed sleep apnea; snomeddesc ription: Sleep apnea; Report Immunity to Registry: Yes; Not Available [facility] 4 06:58:55 Seizure 91636323 Active 2000 Seizure; snomeddesc ription: Seizure; Report [...] Report Immunity to Registry: Yes; Not Available [facility] 4 06:58:58 Kidney stone 07963223 Active 2001 Calculus of kidney; snomeddesc ription: Kidney stone; Report Immunity to Registry: Yes; Kidney stone; snomeddesc ription: Kidney stone; Report Immunity to Registry: Yes; Not Available [facility] 4 06:58:54 History of calculus of kidney 962025682 Active 2001 History of calculus of kidney; snomeddesc ription: History of calculus of kidney; Report Immunity to Registry: Yes; Not Available [facility] 4 06:58:54 History of urinary stone 720408371 Active 2001 Personal history of urinary calculi; snomeddesc ription: History of calculus of kidney; Report Immunity to Registry: Yes; Not Available [facility] 4 06:58:56 Asthma 379161714 Active 2006 Asthma; snomeddesc ription: Asthma; Report Immunity to Registry: Yes; Asthma; Report Immunity to Registry: Yes; ReasonDate : 10/13/2019 ; ; Start Date : 10/13/2019 Asthma; snomeddesc ription: Asthma; Report Immunity to Registry: Yes; Not Available [facility] 4 06:58:53 Diarrhea 36854974 Active 2006 Diarrhea; snomeddesc ription: Diarrhea; Report Immunity to Registry: Yes; Diarrhea, unspecifie d; snomeddesc ription: Diarrhea; Report Immunity to Registry: Yes; Not Available [facility] 4 06:58:53 Substance abuse 46887874 Active 2006 Substance abuse; snomeddesc ription: Substance abuse; Report Immunity to Registry: Yes; Notes: opiate/suad jolene/benzo ; Not Available [facility] 4 06:58:53 Fibromyos itis 75431203 Active 2006 Myalgia and myositis, unspecifie d; snomeddesc ription: Fibromyalg ia; Report Immunity to Registry: Yes; Notes: Chronic pain multiple/c hronic back pain; Not Available [facility] 4 06:58:53 Type B viral hepatitis 82035838 Active 2006 Type B viral hepatitis; snomeddesc ription: Type B viral hepatitis; Report Immunity to Registry: Yes; Notes: core ab pos; s ag neg; s ab neg HBV vL nondetecte d 2016; 2017; Not Available [facility] 4 06:58:54 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 59566881 Active 2006 Other psychoacti ve substance abuse, uncomplica lucho; snomeddesc ription: Substance abuse; Report Immunity to Registry: Yes; Notes: opiate/suad jolene/benzo ; Not Available [facility] 4 06:58:55 Viral hepatitis B without hepatic coma 651655970 Active 2006 Unspecifie d viral hepatitis B without hepatic coma; snomeddesc ription: Type B viral hepatitis; Report Immunity to Registry: Yes; Notes: core ab pos; s ag neg; s ab neg HBV vL nondetecte d 2016; 2017; Not Available [facility] 4 06:58:55 Fibromyal mika 330433777 Active 2006 Fibromyalg ia; snomeddesc ription: Fibromyalg ia; Report Immunity to Registry: Yes; Notes: Chronic pain multiple/c hronic back pain; Not Available [facility] 4 06:58:56 Chronic hepatitis C 482787812 Active 2006 Chronic hepatitis C without mention [...] Not Available [facility] 4 06:58:57 Steatotic liver disease 442689968 Active 2006 Steatosis of liver; snomeddesc ription: Steatosis of liver; Report Immunity to Registry: Yes; Notes: u/s 2021; Fatty (change of) liver, not elsewhere classified ; snomeddesc ription: Steatosis of liver; Report Immunity to Registry: Yes; Notes: u/s 2021; Not Available [facility] 4 06:58:53 Headache 99939437 Active 2008 Headache; snomeddesc ription: Headache; Report Immunity to Registry: Yes; Notes: migraine; Headache; snomeddesc ription: Headache; Report Immunity to Registry: Yes; Notes: migraine; Not Available [facility] 4 06:58:56 Herpesvir us infection 37361307 Active 2009 Herpesvira l infection, unspecifie d; snomeddesc ription: Herpes simplex; Report Immunity to Registry: Yes; Notes: HSV 1 pos serology; HSV 2 neg serology; Not Available [facility] 4 06:58:53 Herpes simplex 50155628 Active 2009 Herpes simplex; snomeddesc ription: Herpes simplex; Report Immunity to Registry: Yes; Notes: HSV 1 pos serology; HSV 2 neg serology; Not Available [facility] 4 06:58:54 Seasonal allergic rhinitis 196519788 Active 2012 Other seasonal allergic rhinitis; snomeddesc ription: Seasonal allergy; Report Immunity to Registry: Yes; Notes: hx nasal congestion ; Not Available [facility] 4 06:58:54 Blood chemistry outside reference range 964335821 Active 2012 Other specified abnormal findings of blood chemistry; snomeddesc ription: Decreased testostero ne level; Report Immunity to Registry: Yes; Notes: hypogoandi sm; Not Available [facility] 4 06:58:55 Testoster one level below reference range 063331900 Active 2012 Decreased testostero ne level; snomeddesc ription: Decreased testostero ne level; Report Immunity to Registry: Yes; Notes: hypogoandi sm; Not Available [facility] 4 06:58:57 Seasonal allergy 601398830 Active 2012 Seasonal allergy; snomeddesc ription: Seasonal allergy; Report Immunity to Registry: Yes; Notes: hx nasal congestion ; Not Available [facility] 4 06:58:58 Loss of appetite 61291018 Active 2012 Anorexia; snomeddesc ription: Loss of appetite; Report Immunity to Registry: Yes; Loss of appetite; snomeddesc ription: Loss of appetite; Report Immunity to Registry: Yes; Not Available [facility] 4 06:58:58 Male hypogonad ism 17315542 Active 2012 Male hypogonadi sm; snomeddesc ription: Male hypogonadi sm; Report Immunity to Registry: Yes; Not Available [facility] 4 06:58:53 Testicula r hypofunct ion 444550210 Active 2012 Other testicular hypofuncti on; snomeddesc ription: Male hypogonadi sm; Report Immunity to Registry: Yes; Not Available [facility] 4 06:58:54 Hyperplas ia of prostate 645522180 Active 2014 Hyperplasi a of prostate, unspecifie d, without urinary obstructio n and other lower urinary symptoms (LUTS); snomeddesc ription: Hyperplasi a of prostate; Report Immunity to Registry: Yes; Hyperplas ia of prostate; snomeddesc ription: Hyperplasi a of prostate; Report Immunity to Registry: Yes; Not Available [facility] 4 06:58:54 Hypertens marj disorder 28981785 Active 2017 Hypertensi ve disorder; snomeddesc ription: Hypertensi ve disorder; Report Immunity to Registry: Yes; Not Available [facility] 4 06:58:56 Essential hypertens ion 87844264 Active 2017 Essential (primary) hypertensi on; snomeddesc ription: Hypertensi ve disorder; Report Immunity to Registry: Yes; Not Available [facility] 4 06:58:57 Lyme disease 68729844 Active 2017 Lyme disease; Report Immunity to Registry: Yes; Notes: tx cefuroxime x14 d (hx all Doxy); Not Available [facility] 4 06:58:56 Onychomyc osis due to dermatoph yte 245268884 Active 2017 Tinea unguium; snomeddesc ription: Onychomyco sis; Report Immunity to Registry: Yes; Notes: feet digits; Not Available [facility] 4 06:58:55 Onychomyc osis 750324696 Active 2017 Onychomyco sis; snomeddesc ription: Onychomyco sis; Report Immunity to Registry: Yes; Notes: feet digits; Not Available [facility] 4 06:58:57 Problem Notes None recorded. Medical Equipment None Reported. Allergies Allergen ID Allergen Name Allergen Category Reaction Reaction Severity Criticality Documentation Date Start Date Code Code System Note Provider Name and Address Organization Details Recorded Time 1345 Product containin g penicilli n (product) medicatio n Not available Not available [facility] 04/13/2025 [id number] GRICELDA Levin MD [address] [place] [address] [place], [phone] , LYNN - CHERYL LEVIN MD [facility] 5 12:13:34 714 Reglan medicatio n Not available Not available Not available 10/31/20232012 9230 RxNorm Comme nt: adver se_ev ent_t ype: 11585 8002; ; Not Available [facility] 4 06:50:47 715 Motrin medicatio n Not available Not available Not available 10/31/2023201248 8 RxNorm Comme nt: adver se_ev ent_t ype: 19393 8002; ; Not Available [facility] 4 06:50:47 716 doxycycli ne Not available Not available Not available Not available 10/31/20232017 3640 RxNorm Comme nt: adver se_ev ent_t ype: 98784 8002; ; Not Available [facility] 4 06:50:47 Medications Name Sig [...] Available Liquid Nutrition oral 0 Quantity : 95389; Duration : 30; 0 refill(s ) 09/30 [...] Not Available Not Available Not Available Afluria 1405-3610 45 mcg (15 mcg x 3)/0.5 mL [...] Pneumoco ccal conjugat e PCV20, polysacc haride TBO060 conjugat e, adjuvant , PF; Not Available Not Available Not Available Vitals Date Recorded Heart rate Body temperature Body weight Systolic And Diastolic Provider Name and Address Organization Details Last Updated DateTime 10/21/2024 98 /min 98.2 [degF] 72846.26 g 118/97 mm[Hg] Lexis LEVIN MD [facility] 10/21/2024 12:04:23 Date Recorded Body height Heart rate Respiratory rate Body mass index (BMI) Body weight Systolic And Diastolic Provider Name and Address Organization Details Last Updated DateTime 162.56 cm 81 /min 20 /min 24.9 kg/m2 67851.8 9 g 136/89 mm[Hg] Cheryl Levin MD [address] [place] [address], L[place], [phone], LYNN LEVIN MD [facility] 15:01:34 Date Recorded Heart rate Body mass index (BMI) Body weight Respiratory rate Systolic And Diastolic Provider Name and Address Organization Details Last Updated DateTime 12/30/2024 92 /min 26.1 kg/m2 20566.04 g 16 /min 108/83 mm[Hg] Cheryl Levin MD [address] [place] [address], [phone], LYNN LEVIN MD [facility] 16:33:39 Date Recorded Body height Provider Name an d Address Organization Details Last Updated DateTime 12/30/2024 162.56 cm Jany Delvalle LYNN LEVIN MD [facility] 12/30/2024 15:08:38 Date Recorded Body height Heart rate Respiratory rate Body temperature Body mass index (BMI) Body weight Systolic And Diastolic Provider Name and Address Organization Details Last Updated DateTime 162.56 cm 103 /min 18 /min 98.4 [degF] 25.1 kg/m2 23325.4 9 g 110/80 mm[Hg] Aleksandra LEVIN MD [facility] 11:09:16 Date Recorded Heart rate Respiratory rate Body temperature Body mass index (BMI) Body weight Systolic And Diastolic Provider Name and Address Organization Details Last Updated DateTime 89 /min 20 /min 98.1 [degF] 24.5 kg/m2 88992.7 1 g 118/83 mm[Hg] Lexis LEVIN MD [facility] 15:46:27 Date Recorded Body height Provider Name an d Address Organization Details Last Updated DateTime 04/13/2025 162.56 cm Freddy LEVIN MD [facility] 04/13/2025 11:36:06 Social History None recorded. Functional [...] Time Meningococcal MCV4O 9 completed Not Available [facility] 10/31/2023 06:54:49 zoster live 9 completed Not Available [facility] 10/31/2023 06:54:50 Influenza, split virus, quadrivalent, preservative 9 completed Not Available [facility] 10/31/2023 06:54:50 Influenza, split virus, quadrivalent, preservative 8 completed Not Available [facility] 10/31/2023 06:54:50 Influenza, split virus, quadrivalent, preservative 0 completed Not Available [facility] 10/31/2023 06:54:50 Past Encounters Encounter ID Performer Location Encounter Start Date Encounter Closed Date Diagnosis/Indication Diagnosis SNOMED-CT Code Diagnosis ICD10 Code Diagnosis IMO Codes Diagnosis Note [id number] Cheryl Levin MD Main Office [address] [place] [address] 05/25/2023 09:48:40 06/27/2023 09:16:16 Human immunodeficiency virus infection 44798037 B20 HIV. Continue Biktarvy 1 tab po [...] [id number] Cheryl Levin MD Main Office [address] [place] [address] 08/24/2023 09:33:00 08/24/2023 10:46:09 Human immunodeficiency virus infection 82502800 B20 HIV. Continue Biktarvy 1 tab po [...] /Tivicay.s afe sex.labs Septemberlan of care reviewed [id number] Cheryl Levin MD Main Office [address] [place] [phone] 11/12/2023 11:34:42 11/16/2023 15:00:47 Human immunodeficiency virus infection 28775691 B20 HIV.Contin ue Biktarvy 1 tab po qd.U=Upt aware of PreP availabili ty.condom use.plan of care reviewed Adult heal th examination 737545855 Z00.00 [id number] Cheryl Levin MD Main Office [address] [place] [phone] 11/21/2023 10:59:43 11/23/2023 14:55:21 [id number] Cheryl Levin MD Main Office [address] [place] [phone] 6 01/14/2024 09:27:39 01/16/2024 13:51:41 57918 Cheryl Levin MD Main Office [address] [place] [phone] 6 01/16/2024 10:24:39 01/16/2024 11:50:10 Human immunodeficiency virus infection 42633016 B20 HIV.Contin ue Biktarvy 1 tab po qd.U=Upt aware of PreP availabili ty.condom use.labs todayplan of care reviewed Candidiasis of mouth 797 94312 B37.0 nystatin 5cc po qid x 14 days. swish and spit.call with any side effects.ba cterial/fu ngal swab obtained. 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 99751 Cheryl Levin MD Main Office [address] [place] [address] [phone] 6 02/14/2024 12:00:04 02/14/2024 12:24:19 Human immunodeficiency virus infection 77662916 B20 HIV.Contin ue Biktarvy 1 tab po qd.U=Upt aware of PreP availabili ty.DoxyPEP reviewedco ndom use.labs todayplan of care reviewed Methicilli n resistant Staphylococcus aureus infection 014821158 A49.02 swab culture 01/2024 Candidiasi s of esophagus 91899825 B37.81 sandy glabratafl uconazole 100mg po qd x 14 dayscall with any side effects. Weight loss 17575442 R63 .4 contributi ng factor sandy, MRSA, HIV among othermight benefit from Serostim.w ill review with himG tube 95831 Cheryl Levin MD Main Office [address] [place] [address] 02/21/2024 11:08:05 02/21/2024 12:09:56 Human immunodeficiency virus infection 70457222 B20 HIV.Contin ue Biktarvy 1 tab po qd.complia nce reviewedU= Upt aware of PreP availabili ty.DoxyPEP reviewedco ndom use.labs todayplan of care reviewed Candidiasi s of esophagus 86604267 B37.81 sandy glabratato complete fluconazol e 100mg po bid x 14 days: (10mg/ml) 10ml by G tube bidcall with any side effects. Methicilli n resistant Staphylococcus aureus infection 247861404 A49.02 swab culture urr ently on Bactrim oral suspension (200mg- 40mg/5ml) since 02/15-20ml q 12 hrs G tube x 10 days Cachexia a ssociated with AIDS 043771482 B20 R64 weight loss. frail. progressin g.contribu ting factor sandy, MRSA, HIV among other. G tubeSerost im 6mg sq qd will be prescribed with the goal of helping w weight gain, increase muscle mass gain, and increase enduranceh e has visiting nurse who could assist with daily injections . 614[address] Cheryl Levin MD Main Office [address] [place] [address] 02/25/2024 10:24:53 02/25/2024 11:09:27 Human immunodeficiency virus infection 19371869 B20 HIV.Contin ue Biktarvy 1 tab po qd.complia nce reviewedU= Ucondom use.labs todayplan of care reviewed Candidiasi s of esophagus 83834324 B37.81 sandy glabratawi ll continue fluconazol e 200 mg po qd x 14 days: (10mg/ml) 10ml by G tube QD;will on next appointmen t for further tx va suppressio n tx.call with any side effects. Cachexia a ssociated with AIDS 825393932 B20 R64 weight loss. frail. progressin g.approved Serostim 6mg sq qd; awaiting delivery to the office. will be prescribed with the goal of helping w weight gain, increase muscle mass gain, and increase enduranceh e has visiting nurse who could assist with daily injections .ensure tidmegace 625 mg qd. Methicilli n resistant Staphylococcus aureus infection 607385441 A49.02 swab culture 01/2024will complete 10 days of Bactrim oral suspension (200mg- 40mg/5ml) since 02/15-20ml q 12 hrs G tube on 02/27/24 49222 Cheryl Levin MD Main Office [address] [facility] [place] [address] 03/14/2024 10:24:00 03/14/2024 10:29:25 Cachexia associated with AIDS 764817697 R64 B20 gained 2 pounds. probably improved sandy esophagiti s 2nd to inhaled steroids.S Tart Serostim 6mg s/c qd abdomen. first dose administer ed today. Tolerated well; goalis to increase weight, endurance and muscle massHe will have BAGGAGE AND MAIL AGENT and nurse help with daily injections .potential side effects reviewed.t o call with any concernshe will car pick up driver Megace today, and start it as well(G tube) qd to increase apetitte Human immunodeficiency virus infection 63136510 B20 HIV.Contin ue Biktarvy 1 tab po qd.complia nce reviewed Candidiasi s of esophagus 74644043 B37.81 sandy glabratawi ll continue 2 more weeks of fluconazol e 200 mg po qd x 14 days: (10mg/ml) 10ml by G tube QD;might benefit from qw suppressio n tx.call with any side effects. 68495 Cheryl Levin MD Main Office [address] [facility] [place] [address] 04/18/2024 09:52:00 04/18/2024 11:19:01 Cachexia associated with AIDS 520638570 R64 B20 124 lbs. gained weightcont inue Serostim 6mg s/c qd abdomen. goalis to increase weight, endurance and muscle masscontin ue Megace G tube qdCNA and nurse helping with compliance and tx.potenti al side effects reviewed.t o call with any concerns Human immunodeficiency virus infection 80130429 B20 HIV.Contin ue Biktarvy 1 tab po qd.padmini copelande reviewedla bs today Candidiasi s of esophagus 16088230 B37.81 sandy glabratawi ll continue fluconazol e 200 (10ml) mg G tube qw for suppressio n tx.call with any side effects. Aspiration pneumonia 422 949161 J69.0 get discharge summaryon antibiotic ;eat standing or sitting; and not [place] [address] Cheryl Levin MD Main Office [address] [place] [address] 05/20/2024 10:17:53 05/20/2024 12:44:49 Cachexia associated with AIDS 694814503 R64 B20 continue Serostim 6mg s/c qd abdomen. goal is to increase weight, endurance and muscle masscontin ue Megace G tube qd 5cc qdCNA and nurse helping with compliance and tx.potenti al side effects reviewed.t o call with any concerns Human immunodeficiency virus infection 35797322 B20 HIV.Contin ue Biktarvy 1 tab po qd.padmini hoffman reviewedla bs today Candidiasi s of esophagus 58729723 B37.81 sandy glabrataho ld fluconazol e for nowSTART 1 tab po bid x 21 says for esophageal sandy glabrata.c all with any side effects. 03880 Cheryl Levin MD Main Office [address] [place] [address] 06/18/2024 10:10:09 06/18/2024 11:12:33 Cachexia associated with AIDS 514933884 R64 B20 continue Serostim 6mg s/c qd abdomen. goal is to increase weight, endurance and muscle massCNA and nurse helping with compliance and tx.megace on holdpotent ial side effects reviewed.t o call with any concerns Human immunodeficiency virus infection 41328366 B20 HIV.Contin ue Biktarvy 1 tab po qd.padmini hoffman reviewedla bs today Inflammato ry disease of liver 393118975 K75.9 Suspect 2nd to concomitan t medication s. ongoingdo not re-start fluconazol e nor megacenega tive infectious and non-infect ious workupto call or ER if jaundice, abd pain, n/v/d marcejessica huertas History of calculus of kidney 912896051 Z87.442 u/s 05/[address] scan 02/2024hydr ation Aspiration pneumonia 422 861757 J69.0 s/p aspiration on CT AngioNPO per instructio n given to him in hospital; nutrition by G tubes/p (ceftriaxo ne,Azithro ,Flagyl while in Hospital;d ischarged on azithro and cefpodoxim e x 3 days which he completed. leg elevationa void sedating meds as much as possible Deep venou s thrombosis of lower extremity 539948409 I82.409 left lower extremity doppler showed DVT of gastrocnem ius vein;on tx w w Eliquis bid . Pulmonary embolism [address] Angio was positive for Acute lobar PEs/p heparin; ongoing Eliquis bidmed list reviewed.n o drug use for years. not on maintenanc e tx.denies current ETOH use. 28520 Cheryl Levin MD Main Office [address] [place] [address] 07/15/2024 15:10:10 07/15/2024 15:45:30 Cachexia associated with AIDS 404620022 R64 B20 continue Serostim 6mg s/c qd abdomen. goal is to increase weight, endurance and muscle masspotent ial side effects reviewed.t o call with any concerns Human immunodeficiency virus infection 48540121 B20 HIV.Contin ue Biktarvy 1 tab po qd.padmini hoffman reviewedla bs Candidiasi s of esophagus 81458290 B37.81 on clotrimazo le. swish and spit qd Medication monitoring 39 7780513 Z51.81 73637 Cheryl Levin MD Main Office [address] [place] [address] 10/21/2024 12:22:54 10/21/2024 16:48:51 Cachexia associated with AIDS 573730466 R64 B20 improvedco ntinue Serostim 6mg s/c qd abdomen. goal is to increase weight, endurance and muscle masspotent ial side effects reviewed.m ay start decreasing dose in 1-2 months if further weight gainon Boost protein shakesto call with any concerns Human immunodeficiency virus infection 27162882 B20 HIV.Contin ue Biktarvy 1 tab po qd.complia nce reviewedla bs Candidiasi s of esophagus 09886275 B37.81 on clotrimazo le. swish and spit qd/BID PRN 06791 Cheryl Levin MD Main Office [address] [place] [address] 11/25/2024 11:48:55 11/25/2024 14:20:54 Cachexia associated with AIDS 674199137 R64 B20 improvedco ntinue Serostim 6mg s/c [...] with any concerns Human immunodeficiency virus infection 09321509 B20 HIV.Contin ue Biktarvy 1 tab po qd.complia nce reviewedla bs Candidiasi s of esophagus 44515496 B37.81 off/on; recurrento n clotrimazo le. swish and spit qd/BID PRN for suppressio n Insomnia 045135898 G47.0 0 benadryl capsules requested by patient forinsomni a and itchiness as needed.cor rect use reviewed. 05634 Cheryl Levin MD Main Office [address] [place] [address] 12/30/2024 15:04:38 12/31/2024 09:52:40 Cachexia associated with AIDS 343540734 R64 B20 improvedco ntinue Serostim 6mg s/c [...] with any concerns Human immunodeficiency virus infection 61543778 B20 HIV.Contin ue Biktarvy 1 tab po qd.complia nce reviewedla bs Candidiasi s of esophagus 55143418 B37.81 off/on; recurrento n clotrimazo le. swish and spit /BID/TID PRN for suppressio n [id number] Cheryl Levin MD Main Office [address] [place] [address] 03/09/2025 09:16:22 03/09/2025 10:12:30 Cachexia associated with AIDS 807220357 R64 B20 stable/imp roved.cont inue Serostim 6mg s/c qd abdomen. goal is to increase weight, endurance and muscle masspotent ial side effects reviewed.o n Boost protein shakescont inue megace; plan to stop in the next 2-3 monthsto call with any concerns Human immunodeficiency virus infection 91955732 B20 HIV.Contin ue Biktarvy 1 tab po qd.complia nce reviewedla bs Candidiasi s of esophagus 06550855 B37.81 off/on; recurrento n clotrimazo le. swish and spit /BID/TID PRN for suppressio nSTART Fluconazol e 100mg po qd x 21 days: esophageal sandy; then continue clotrimazo le for suppressio noral swab for sandy/ba cteria obtained Abnormal a nal Papanicolaou smear 647319770 R85.619 292363 Anal PAP sample obtained/p reformed: no abnormalit yGC/chlamy chi rectal done 73338 Cheryl Levin MD Main Office [address] [place] [address] 04/13/2025 10:41:03 04/13/2025 12:37:30 Cachexia associated with AIDS 711805853 R64 B20 stable/imp roved. has gained weight.con tinue Serostim 6mg s/c qd abdomen. goal is to increase weight, endurance and muscle masspotent ial side effects reviewed.o n Boost protein shakeson megace PRNto call with any concerns Human immunodeficiency virus infection 89769366 B20 HIV.Contin ue Biktarvy 1 tab po qd.complia yasmin butt bshe is aware might start IV med q 6 months and IM cabotegrav ir QOM Candidiasi s of esophagus 16003783 B37.81 off/on; recurrento n clotrimazo le. swish [...] Perry Member ID Guarantor Name 04/16/2025 1 [facility] - DOS ON OR AFTER 2022 - MEDICARE ADVANTAGE [place] & [place] (MEDICARE REPLACEMENT/AD VANTAGE - PPO) [facility] Juan David [id number] [facility] Juan David Notes Date Note Type [...] notify site start date and confirm medication. TECHNOLOGY ARCHITECT in room with his consent. Cheryl Levin MD [address] [place] [address], [phone], LYNN LEVIN MD [facility] 10/21/2024 14:34:28 11/25/2024 text/html ROS as noted in the [facility] HIVOn Biktarvy 1 tab po qd.reports [...] cyst removal in recent weeks. outpatient/day procedure. TECHNOLOGY ARCHITECT in room with his consent. 07/2025 HIV VL nondetceted; ALt/AST wnl; eGFR>60; PL6=109 Cheryl Levin MD [address] [place] [address], [phone], LYNN LEVIN MD [facility] 11/26/2024 15:09:42 12/30/2024 text/html ROS as noted in the [facility] HIVOn Biktarvy 1 tab po qd.reports daily compliance. denies missing dose.thrush. gets on/off and using clotrimazole to treat/suppress.gaining weight: 120lbs ---145lbs --152 lbsno aspirationgetting serostim daily for cachexia,no side effects.might get G tube removed in February 2025.no hospitalizations since he was last seenmed list reviewed. TECHNOLOGY ARCHITECT [place]. came in today with a a friendVL nondetceted;07/2025 HIV VL nondetceted; ALt/AST wnl; eGFR>60; GY8=501 Cheryl Levin MD [address] [place] [address], [phone], LYNN LEVIN MD [facility] 12/30/2024 16:39:33 03/09/2025 text/html ROS as noted in the [facility] HIVOn Biktarvy 1 tab po qd.reports daily compliance. denies missing dose.thrush ongoing. has flareup today.gets on/off and using clotrimazole to treat/suppress.getting serostim daily for cachexia, helpingno side effects.might get G tube removed in February 2025.med list reviewed. will get anal pap VL nondetceted;02/07/2024 HIV Vl=24; AST =28 ALT 109; eGFR=90;07/2025 HIV VL nondetceted; ALt/AST wnl; eGFR>60; SD3=993 Cheryl Levin MD [address] [place] [address], [phone], LYNN LEVIN MD [facility] 03/09/2025 13:13:07 04/13/2025 text/html ROS as noted in the [facility] HIVOn Biktarvy 1 tab po qd.Willing to get switched to infusion/cabotegravir injection if he is a candidate. prefers no POhas been choking on certain foods like bread; last episode last week where software clerk had help him when he choked.he feels well.thrush ongoing 03/09/25 sandy. he did take the 21 days of fluconazole. fluconazole prn for active tx;gets on/off and using clotrimazole to treat/suppress.weight has been stable. on serostim and protein boost shakes. has been on megace PRN.getting serostim daily for cachexia,no side effects. not hospitalized. no pneumonia.software clerk struggling with nurses that go to his home. he missess Biktarvy on weekends when nurses do not show up for visits; his meds are locked and they are accessed and administered by the nurses.pt will request list of meds that pt is currently taking.med list reviewed.EKG ok.7 2024 anal PAP neg for abnormalities; no [id number] VL=24; eGFR>60;02/07/2024 HIV Vl=24; AST =28 ALT 109; eGFR=90;07/2025 HIV VL nondetceted; ALt/AST wnl; eGFR>60; ZO0=081 Cheryl Levin MD [address] [place] [address], [phone], LYNN LEVIN MD [facility] 04/15/2025 11:00:52
--- OUTSIDE RECORDS SUMMARY | 2025-06-10 10:03 | XMS_ITS | Clinical Summary ---
Author Organization Located Within [facility] Address [address] [address] Phone Care Team Providers Care Ball Mill Operator Name Role Phone Gaetano Gibbons MD Primary Care Provider [phone] Social History Tobacco Use Types Packs/Day Years [...] Medical Devices Not on file Care Teams Ball Mill Operator Relationship Specialty Start Date End Date Gaetano Gibbons MD [address] [place] [address] [address], [address] [place] [address] [email or web address] PCP - General Family Medicine 07/02/23 Additional Source Comments The information contained in this document represents components of the legal health record. It is not the complete legal health record.Located Within [facility]
--- OUTSIDE RECORDS SUMMARY | 2025-06-10 10:03 | XMS_ITS | Encounter Summary ---
Author Organization [employer] Address [address] [place] [address] Care Team Providers Care Railroad Brake Operator Name Role Phone Physician, Pcp Unknown Primary Care Provider Bina vailable Encounter Details Date Type Department Care Team ([facility] Contact Info) Description 03/10/2025 Lab Requisition [facility] - Main Lab [address] [facility] [place] [address] MD [address] [place] [address] Unspecified abnormal cytological findings in specimens from [...] Upcoming Encounters Date Type Department Care Team ([facility] Contact Info) Description 07/07/2025 10:15 AM EDT Office Visit Orthopedic Surgery - [place] [address] [phone] Kb Benitez DPM [address] [address] documented as of this encounter Procedures Procedure [...] AM EDT) Final Diagnosis Specimen sent to [facility] for Anal cytology with HPV CoTest. Their interpretation is as follows: Anal, Rectum (ThinPrep): Satisfactory for Evaluation. Transformation zone components absent. Negative for Intraepithelial Lesion or Malignancy. Disclaimer This test has been modified from the furnace converter's instructions. Its performance characteristics were determined by [facility] in a manner consistent with CLIA requirements. This test has not been cleared or approved by the U.S. Food and Drug Administration Report signed electronically by: Qi Lehman M.D. on 16 Mar 2025 at 13:55 at [facility], [address] [facility] (CLIA [id number]) HPV Anal Detect/Genotyping, PCR: High Risk HPV [...] in the context of a [facility] Non-GRIEF COUNSELLOR Cytology case; this result should be interpreted within the context of the Non-GRIEF COUNSELLOR cytology report. Resulted 12 Mar 2025 at 17:00 by [facility], [address] [facility] (CLIA [id number]) Full report attached. 03/17/2025 2:31 PM EDT [facility] Disclaimer Unless otherwise specified, all tissue is 10% NB formalin fixed and paraffin embedded. Technical cytopathology services provided by [facility], at [address] [place] [address] (CLIA # [id number]/Angel Villalobos MD, Fnps.) 03/17/2025 2:31 PM EDT [facility] Brushing/Spatula Anal structure / Unknown 03/09/2025 03/10/2025 9:22 AM EDT us [address] MD LAB CYTOLOGY ORDERABLES F inal Result [facility] [address] [place] [address], documented in this encounter Visit Diagnoses Diagnosis Unspecified abnormal cytological findings in specimens from anus documented in this encounter Care Teams Railroad Brake Operator Relationship Specialty Start Date End Date Physician, Pcp Unknown PCP - General 03/10/25 documented as of this encounter
--- OUTSIDE RECORDS SUMMARY | 2025-06-10 10:03 | XMS_ITS | Clinical Summary ---
Author Organization [address] [facility] Address [address] [place] [address] Phone Care Team Providers Care Bilingual Sales Consultant Name Role Phone Physician, Pcp Unknown Primary [...] Orthopedic Surgery [facility] [address] [phone] Kb Benitez A, DPM Pain in toes of both feet (Primary Dx); Metatarsalgia of right foot; Arthritis of both feet; Dermatophytosis, nail; Contracture, left foot 05/12/[address] [facility] [address] [phone] Kb Benitez, DPM 05/05/2025 9:45 AM EDT Consult Orthopedic Surgery [facility] [address] [phone] Kb Benitez, DPM Pain in toes of both feet (Primary Dx); Arthritis of both feet; Metatarsalgia of right foot; Onychogryphosis; Dermatophytosis, nail from Last 3 Months Surgical History Surgery Date Site/Laterality Comments EYE SURGERY Left PROCEDURE: HISTORICAL EYE SURGERY OTHER SURGICAL HISTORY PROCEDURE: ---- OTHER ----; COMMENT: hemorrhoids Medical History Medical History Date Comments Seizures ([facility] V24, [facility] V28) 06/29/2016 DX:Seizures ([facility]); COMMENT: F/u with neuro at [place] [facility] HIV (human immunodeficiency virus infection) ([facility] V24, [facility] V28) 06/29/2016 DX:HIV (human im munodeficiency virus infection) ([facility]); COMMENT: HIV dx in 1991, f/u Dr. Street Depression 06/29/2016 DX:Depression Anxiety 06/29/2016 DX:Anxiety; COMM ENT: F/u [facility] Counseling Chronic back pain 06/29/2016 [...] AM EDT Office Visit Orthopedic Surgery - [place] 250 175 [facility] [address] [place] [phone] Kb Benitez DPM 175 [facility] [address] [place] [address] Health Maintenance Due Date Last Done Comments Colorectal Cancer Screening: Colonoscopy 1965 MMR Vaccines (1 of 2 - Risk 2-dose series) 1982 Hepatitis A Vaccines (1 of 2 - Risk 2-dose series) 1983 Meningococcal ACWY Vaccine (2 - Risk 2-dose series) 01/21/2019 11/26/2018 Cholesterol Screening (Lipid Panel) 08/13/2022 Hepatitis C Screening 08/13/2022 Medicare Annual [...] on patient's age to complete this topic Insurance [place] - [place] [employer] MEDICARE Member Subscriber Plan / Payer (Ef fective 2017-Present) Name:TATI COCHRANGOVICKIE Relation to Subscriber:Self Name:Vickie Fall Payer ID:[id number] Group ID:[id number] Type:Not on file Address: [address] [place] [address] Care Teams Bilingual Sales Consultant Relationship Specialty Start Date End Date Physician, Pcp Unknown PCP - General 03/10/25
== END 2025-06-10 09:39 | disposition home or self-care (01) ==
LOC: HO.ENCR 09:16
PROVIDERS: PCP Student in an Organized Health Care Education/Training Program; Visit Provider Student in an Organized Health Care Education/Training Program
DX: M81.0 Age-related osteoporosis without current pathological fracture (principal)

== ENCOUNTER → 2025-06-10 09:15 | Outpatient (BNVA) | payer OTHER, SELFPAY | PROVIDERS: PCP Student in an Organized Health Care Education/Training Program; Visit Provider Student in an Organized Health Care Education/Training Program | DX: M81.0 Age-related osteoporosis without current pathological fracture (principal) | CPT/HCPCS: 96372; J3111 ==

== ENCOUNTER 2025-07-08 09:20 | Outpatient (AMB) | payer OTHER, SELFPAY ==
--- OUTSIDE RECORDS SUMMARY | 2025-07-07 10:15 | XMS_ITS | Encounter Summary ---
Author Organization [facility] Address [address] [place] [address] Care Team Providers Care Rainbow Trout Farm Manager Name Role Phone Physician, Pcp Unknown Primary Care Provider Bina vailable Reason for Visit * Reason Comments Foot Pain Pain in toes of both feetMetatarsalgia of right footArthritis of both feetDermatophytosis, nailContracture, left foot * Consultation (Routine) - Closed Specialty Diagnoses / Procedures Referred By Sam bowling Referred To Contact Podiatry / Orthopaedic Surgery Diagnoses Onychogryphosis Terese Rivera MD [address] [place] [address] Phone: tel: fax: Kb Benitez DPM [address] [address] Phone: tel: fax: Referral ID Status Reason Start Date Expiration Date V isits Requested Visits Authorized [id number] Closed Specialty Services Required 02/23/2025 02/23/2026 1 1 Encounter Details Date Type Department Care Team (Late st Contact Info) Description 07/07/2025 10:15 AM EDT Office Visit Orthopedic Surgery - [place] [address] [phone] Kb Benitez DPM [address] [place] [address] Pain in toes of both feet (Primary Dx); Metatarsalgia of right foot; Arthritis of both feet; Contracture, left foot; Dermatophytosis, nail Social History Tobacco Use Types [...] Progress Notes * Kb Benitez DPM - 07/07/2025 10:15 AM EDT Referring MD: Terese Rivera* Last PCP visit: 04/13/2025 IDENTIFIER: Juan David is a 60 y.o. year old male who presents for consultation. CC: Bilateral foot pain HPI: 60-year-old male seen for bilateral foot pain. Patient notes he continues to have difficulty withinthe digits and is concern for infection. Patient notes that he has had radiating sensations. Patient also notes that he has a history of lower back pathology. Patient overall notes he has been able to ambulate better since his previous visit and is happy with the progress he is making ROS: GENERAL: Pt denies nausea, fever, vomiting, [...] have been marked as taking for the 07/07/25 encounter (Office Visit) withKb Benitez DPM. ALLERGIES: Acetaminophen, Acetaminophen-codeine, Codeine, Cortisone, [...] Sharp/dull sensation intact, protective sensation intact on [place] [facility]: Good muscle strength 5/5 of all [...] foot 3. Arthritis of both feet 4. Contracture, left foot 5. Dermatophytosis, nail PLAN: Pt was seen and examined, history reviewed. Patient was educated that the metatarsal pain that he is experiencing to the bilateral feet may be caused by overloading the forefoot during ambulatory activity. Patient encouraged to start using metatarsal pad to help with this Patient once again instructed on the importance of offloading his feet daily in order to limit the pressure type pain he is getting to the posterior heels Patient once again is having arthritic changes of the feet bilaterally and is suffering with flareups from time to time. Patient encouraged to use a topical anti-inflammatory to help with these flareups. Kb Bneitez DPM documented in this encounter Plan of Treatment Upcoming Encounters Date Type Department Care Team (Late st Contact Info) Description 09/15/2025 10:00 AM EST Office Visit Orthopedic Surgery - [address] [address] Kb Benitez DPM [address] [place] [address] documented as of this encounter Visit Diagnoses Diagnosis Pain in toes of both feet- Primary Metatarsalgia of right foot Arthritis of both feet Contracture, left foot Dermatophytosis, nail Dermatophytosis of nail documented in this encounter Care Teams Rainbow Trout Farm Manager Relationship Specialty Start Date End Date Physician, Pcp Unknown PCP - General 03/10/25 documented as of this encounter
--- NOTE | 2025-07-08 09:37 | AM.OFFVISNUR ---
Intake Visit Reasons: Evenity #10 Allergies Seasonal Allergies Allergy (Intermediate, Verified 05/27/25 10:44) Eye Drainage codeine (From Tylenol-Codeine #3) Allergy (Mild, Verified 05/27/25 10:44) Rash levofloxacin (From Levaquin) Allergy (Mild, Verified 05/27/25 10:44) Rash metoclopramide (From Reglan) Allergy (Mild, Verified 05/27/25 10:44) Rash acetaminophen (Tylenol-Codeine #3) Allergy (Unknown, Verified 05/27/25 10:44) Rash Penicillins (PENICILLINS) Allergy (Unknown, Verified 05/27/25 10:44) Rash ibuprofen (From Motrin) Adverse Reaction (Unknown, Verified 05/27/25 10:44) Reflux Office Meds romosozumab-aqqg 210 mg/2.34 mL(105 mg/1.17 mL x2)subcutaneous syringe Performing Provider: Ritu Scott MD Performing Location: [facility] Endocrinology Administered by: Na Croft RN on 07/08/25 09:30 Dose Route Admin Location Dispensed Lot Number Expiration Date [facility] Animal Scientist 210 mg subcut Bilateral upper arms 2.34 mL [id number] 08/09/27 73847-552-10 [employer] Total Dispensed Waste 2.34 mL 0 % Comments: Pt accompanied by REAL ESTATE ACCOUNT EXECUTIVE who interpreted visit. Pt declined educational sign language interpreter. No adverse reactions reported from previous injection. Pt tolerated injection well. Pt scheduled in 4 weeks for next appt. No further questions at this time. Assessment & Plan Assessment & Plan Orders: Orders AMB Romosozumab Injection Patient Supplied Today M81.0 - Age-related osteoporosis without current pathological fracture Coding
--- OUTSIDE RECORDS SUMMARY | 2025-07-08 10:47 | XMS_ITS | Clinical Summary ---
Author Organization [facility] Address [address] [address] Phone Care Team Providers Care Wired Sweatband Cutter Name Role Phone Gaetano Gibbons MD Primary Care Provider [phone] Social History Tobacco Use Types Packs/Day Years [...] VACCINE (#1) 2025 COVID-19 VACCINE ( - 2024-2 6 season) 2025 RSV VACCINE (1 - 1-dose [...] Medical Devices Not on file Care Teams Wired Sweatband Cutter Relationship Specialty Start Date End Date Gaetano Gibbons MD [email or web address] PCP - General Family Medicine 07/02/23 Additional Source Comments The information contained in this document represents components of the legal health record. It is not the complete legal health record.[facility]
--- OUTSIDE RECORDS SUMMARY | 2025-07-08 10:47 | XMS_ITS | Encounter Summary ---
Author Organization [facility] Address [address] [place] [address] Care Team Providers Care City Supervisor Name Role Phone Physician, Pcp Unknown Primary Care Provider Bina vailable Encounter Details Date Type Department Care Team (Late Contact Info) Description 03/09/2025 Lab Requisition [facility] [address] [facility] [place] [address] MD [address] [place], [place] [phone] Candidal esophagitis ([facility] V24[facility] V28) Social History Tobacco Use [...] Date Type Department Care Team ([facility] Contact Info) Description 09/15/2025 10:00 AM EST Office Visit Orthopedic Surgery - [place] [address] [facility] [address] [place] [address] Kb Benitez DPM [address] [place] [phone] documented as of this encounter Procedures Procedure Name Priority Date/Time Associated Diagnosis Comments CULTURE FUNGUS, OTHER THAN SKIN HAIR OR NAILS Routine 03/09/2025 12:00 AM EDT Candidal esophagitis ([facility] V24, [facility] V28) CULTURE MISCELLANEOUS Routine 03/09/2025 12:00 AM EDT Candidal esophagitis ([facility] V24, [facility] V28) CHLAMYDIA TRACHOMATIS AND NEISSERIA GONORRHOEAE PCR Routine 03/09/2025 12:00 AM EDT Candidal esophagitis ([facility] V24, [facility] V28) documented in this encounter Results * (ABNORMAL) Culture fungus, other than skin hair or nails (03/09/2025 12:00 AM EDT) Culture, Fungus Yulia albicans(A) GALEN 03/18/2025 8:09 AM EDT [facility] Comment: Edited result: Previously reported as Yeast on 03/16/2025 at 1407 EDT. Swab Oral cavity structure / Unknown 03/09/2025 03/09/2025 6:[address] MD LAB MICROBIOLOGY - GENERA L ORDERABLES Final Result [facility] [address] [place] [address], [place] [phone] * (ABNORMAL) Culture miscellaneous (03/09/2025 12:00 AM EDT) Miscellaneous Culture Yulia albicans/dubl iniensis(A) GALEN 03/12/2025 10:54 AM EDT [facility] Comment: Edited result: Previously reported as Yeast on 2025 at 1140 EDT. Miscellaneous Culture Klebsiella pneumoniae ssp pneumoniae(A) GALEN 03/12/2025 10:54 AM EDT [facility] Comment: The organism value [...] MICROBIOLOGY - GENERA L ORDERABLES Final Result [facility] [address] [place] [address], * Chlamydia trachomatis and Neisseria gonorrhoeae molecular study (03/09/2025 12:00 AM EDT) Neisseria gonorrhoeae PCR Negative Negative LAB MOLECULAR DIAGNOSTICS METHOD 03/10/2025 8:49 AM EDT [facility] Chlamydia trachomatis PCR Negative Negative LAB MOLECULAR DIAGNOSTICS METHOD 03/10/2025 8:49 AM EDT [facility] Swab Rectum structure / Unknown 03/09/2025 03/09/2025 6:[address] MD LAB MICROBIOLOGY - GENERA L ORDERABLES Final Result [facility] [address] [place], [place] [address] [phone] documented in this encounter Visit Diagnoses Diagnosis Candidal esophagitis ([facility] V24, [facility] V28) Candidiasis of the esophagus documented in this encounter Care Teams City Supervisor Relationship Specialty Start Date End Date Physician, Pcp Unknown PCP - General 03/10/25 documented as of this encounter
--- OUTSIDE RECORDS SUMMARY | 2025-07-08 10:47 | XMS_ITS | Clinical Summary ---
Author Organization 175 [facility] Address [address] [place] [address] Phone Care Team Providers Care Field Hockey Coach Name Role Phone Physician, Pcp Unknown Primary [...] Encounters Date Type Department Care Team Description 07/07/2025 10:15 AM EDT Office Visit Orthopedic Surgery [facility] [address] [phone] Kb Benitez DPM Pain in toes of both feet (Primary Dx); Metatarsalgia of right foot; Arthritis of both feet; Contracture, left foot; Dermatophytosis, nail 05/19/2025 9:30 AM EDT Office Visit Orthopedic Surgery [facility] [address] [phone] Kb Benitez DPWilmer Pain in toes of both feet (Primary Dx); Metatarsalgia of right foot; Arthritis of both feet; Dermatophytosis, nail; Contracture, left foot 05/12/[address] [facility] [address] [phone] EliKb eason DPM 05/05/2025 9:45 AM EDT Consult Orthopedic Surgery - [place] [address] [address] Kb Benitez DPM Pain in toes of both feet (Primary Dx); Arthritis of both feet; Metatarsalgia of right foot; Onychogryphosis; Dermatophytosis, nail from Last 3 Months Surgical History Surgery Date Site/Laterality Comments EYE SURGERY Left PROCEDURE: HISTORICAL EYE SURGERY OTHER SURGICAL HISTORY PROCEDURE: ---- OTHER ----; COMMENT: hemorrhoids Medical History Medical History Date Comments Seizures ([facility] V24, [facility] V28) 06/29/2016 DX:Seizures ([facility]); COMMENT: F/u with neuro at [place] [facility] Costello HIV (human immunodeficiency virus infection) ([facility] V24, [facility] V28) 06/29/2016 DX:HIV (human im munodeficiency virus infection) ([facility]); COMMENT: HIV dx in 1991, f/u Dr. Street Depression 06/29/2016 DX:Depression Anxiety 06/29/2016 DX:Anxiety; COMM ENT: F/u [facility] Counseling Chronic back pain 06/29/2016 DX:Chronic [...] Upcoming Encounters Date Type Department Care Team ([facility] st Contact Info) Description 09/15/2025 10:00 AM EST Office Visit Orthopedic Surgery [facility] [address] [phone] Kb Benitez DPM [address] [place] [phone] Health Maintenance Due Date Last Done Comments [...] patient's age to complete this topic Insurance * Guarantor: Vickie Fall Account Type Relation to Patient Date of Phone Billing Address Personal/Family Self 1965 [address] [place] [address] MEDICAID - [place] [employer] MEDICARE Member Subscriber Plan / Payer (Ef fective 2017-Present) Name:VICKIE GROVER Relation to Subscriber:Self Name:Vickie Fall Payer ID:[id number] Group ID:[id number] Type:Not on file Address: [address] [place] [address] Care Teams Field Hockey Coach Relationship Specialty Start Date End Date Physician, Pcp Unknown PCP - General 03/10/25
--- OUTSIDE RECORDS SUMMARY | 2025-07-08 10:47 | XMS_ITS | Encounter Summary ---
Author Organization [facility] Address [address] [place] [address] Care Team Providers Care Physician Extender Name Role Phone Physician, Pcp Unknown Primary Care Provider Bina vailable Encounter Details Date Type Department Care Team (Late Contact Info) Description 03/10/2025 Lab Requisition [facility] Lab [address] [facility] [place] [address] MD [address] [place] [address] Unspecified abnormal cytological findings in specimens from [...] Upcoming Encounters Date Type Department Care Team ([facility] Contact Info) Description 09/15/2025 10:00 AM EST Office Visit Orthopedic Surgery - [place] 250 175 [facility] [address] [place] [phone] Kb Benitez DPM [address] [place] [address] documented as of this encounter Procedures Procedure [...] Final Diagnosis Specimen sent to [facility] for Anal cytology with HPV CoTest. Their interpretation is as follows: Anal, Rectum (ThinPrep): Satisfactory for Evaluation. Transformation zone components absent. Negative for Intraepithelial Lesion or Malignancy. Disclaimer This test has been modified from the baker biscuit's instructions. Its performance characteristics were determined by [facility] in a manner consistent with CLIA requirements. This test has not been cleared or approved by the U.S. Food and Drug Administration Report signed electronically by: Qi Lehman M.D. on 16 Mar 2025 at 13:55 at [facility], [address] [facility] (CLIA [id number]) HPV Anal Detect/Genotyping, PCR: High Risk HPV [...] was ordered in the context of a [facility] Non-BENEFITS CLERK Cytology case; this result should be interpreted within the context of the Non-BENEFITS CLERK cytology report. Resulted 12 Mar 2025 at 17:00 by [facility], [address] [facility] (CLIA [id number]) Full report attached. 03/17/2025 2:31 PM EDT [facility] Disclaimer Unless otherwise specified, all tissue is 10% NB formalin fixed and paraffin embedded. Technical cytopathology services provided by [facility], at [address] [place] [address] (CLIA # [id number]/Angel Villalobos MD, Community Service Organization Director.) 03/17/2025 2:31 PM EDT [facility] Brushing/Spatula Anal structure / Unknown 03/09/2025 03/10/2025 9:22 AM EDT us [address] MD LAB CYTOLOGY ORDERABLES F inal Result [facility] [address] [place] [address], documented in this encounter Visit Diagnoses Diagnosis Unspecified abnormal cytological findings in specimens from anus documented in this encounter Care Teams Physician Extender Relationship Specialty Start Date End Date Physician, Pcp Unknown PCP - General 03/10/25 documented as of this encounter
--- OUTSIDE RECORDS SUMMARY | 2025-07-08 10:47 | XMS_ITS | Clinical Summary ---
Author Organization [facility] Address [address] [place] [address] Care Team Providers Care Manager Social Work Name Role Phone Zora Arce PA-C Primary Care Provider [phone] Source Comments PLEASE NOTE, if this patient [...] nasal sprayIndications:As thma, intermittent, uncomplicated Place 1 Deep Water into the nostril(s) as needed for congestion. [...] features 01/27/2015 Overview (01/27/2015): Has therapist at [facility] HIV (human immunodeficiency virus infection) Chronic [...] Plan of Treatment [place] on file [place] Subscriber Plan / Payer ( fective 2015-Present) Name:Benjamin Fall Relation to Subscriber:Self Name:Benjamin Fall Payer ID:[id number] Group ID:Not on file Type:Medicaid Address: [address] DENT[address] Care Teams Manager Social Work Relationship Specialty Start Date End Date Zora Arce PA-C [address] [place] [address] PCP - General 11/05/18
== END 2025-07-08 09:36 | disposition home or self-care (01) ==
LOC: HO.ENCR 09:21
PROVIDERS: PCP Student in an Organized Health Care Education/Training Program; Visit Provider Student in an Organized Health Care Education/Training Program
DX: M81.0 Age-related osteoporosis without current pathological fracture (principal)

== ENCOUNTER → 2025-07-08 09:20 | Outpatient (BNVA) | payer OTHER, SELFPAY | PROVIDERS: PCP Student in an Organized Health Care Education/Training Program; Visit Provider Student in an Organized Health Care Education/Training Program | DX: M81.0 Age-related osteoporosis without current pathological fracture (principal); Z79.620 Long term (current) use of immunosuppressive biologic | CPT/HCPCS: 96372; J3111 ==

== ENCOUNTER 2025-07-20 09:04 | Outpatient (AMB) | payer OTHER, SELFPAY ==
--- NOTE | 2025-07-20 09:06 | A.OFFVIS_ITS ---
Vital Signs 07/20/25 09:08 Height 5 ft 6 in Weight 155 lb 6.814 oz BMI 25.1 BP 120/88 Blood Pressure Location Rt brachial Position Sitting Pulse 94 Pulse Source Pulse Oximeter Pulse Oximetry (%) 96 Oxygen Delivery Method Room Air Intake Visit Reasons: Asthma Allergies Seasonal Allergies Allergy (Intermediate, Verified 07/20/25 09:12) Eye Drainage codeine (From Tylenol-Codeine #3) Allergy (Mild, Verified 07/20/25 09:12) Rash levofloxacin (From Levaquin) Allergy (Mild, Verified 07/20/25 09:12) Rash metoclopramide (From Reglan) Allergy (Mild, Verified 07/20/25 09:12) Rash acetaminophen (Tylenol-Codeine #3) Allergy (Unknown, Verified 07/20/25 09:12) Rash Penicillins (PENICILLINS) Allergy (Unknown, Verified 07/20/25 09:12) Rash ibuprofen (From Motrin) Adverse Reaction (Unknown, Verified 07/20/25 09:12) Reflux HPI HPI Asthma: Details: Benjamin is a pleasant 60 year old male, former minimal smoker, moderate persistent asthma, h/o chronic respiratory failure with hypoxia has home oxygen not currently using ([facility]), 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 He is accompanied by [employer]. He was admitted to [facility] 04/23-04/27 for acute hypoxic respiratory failure due to aspiration pneumonia and chronic pulmonary embolism, restarted on Eliquis for PE which will be maintained lifelong and sent supplemental oxygen for NOC at 2L. DME is [facility]. Patient was seen by speech therapy who recommended patient should be NPO with intake of G-tube feeds only, which he does admit to oral intake occasionally. 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 He had been doing relatively well with respiratory symptoms controlled on current regimen, so treatment for mycobacterium was on hold, however developed productive cough with yellowish sputum over the last 4 days, unclear if this is related to aspiration given oral intake. Denies fevers, chills, chest congestion, wheezing or dyspnea. [facility] Medical History Fibromyalgia Hepatitis C virus infection without hepatic coma Myalgia History of pulmonary embolism Lower urinary tract symptoms Hypogonadism in male Low serum cortisol level Adrenal hyperplasia Osteoporosis Height loss HIV (human immunodeficiency virus infection) Asthma Dysphagia Adult failure to thrive Adult failure to thrive Multiple rib fractures History of empyema of pleura (01/05/23) Hypertension Closed fracture of leg Hepatitis C Kidney stones Pleuritic chest pain Pneumonia Substance abuse Hemorrhoids Depression HIV (human immunodeficiency virus infection) Asthma Surgical History H/O hemorrhoidectomy Family History Maternal Grandmother Lung cancer Maternal Aunt Lung cancer Mother Lung cancer Social History Household Members: None Household Members Other:: lives alone Housing: Apartment Do you presently have visiting nurse or other home services: Yes (reports daily visiting nurses) Alcohol intake: never Patient Tobacco Use Status: Former Tobacco user Tobacco use type: Cigarette e-Cigarette/Vaping Use: Never Used Second Hand Smoke Exposure: No Substance Use Type: Crack/Cocaine Advance Directives Date on File: 04/25/21 service: No Current occupational status: disabled Current occupation: [employer] Gender identity: Male Review of Systems Const Denies chills, Denies excessive sweating, Denies fever(s), Denies headache(s) and Denies night sweats Eyes Denies dry eyes, Denies irritation and Denies itchy eyes ENT Reports Normal hearing present, Reports dysphagia, Denies headache(s), Denies nasal congestion, Denies nasal discharge and Denies post nasal drip Card Denies chest pain, Denies chest pain at rest, Denies chest pain with activity, Denies claudication, Denies leg edema, Denies orthopnea and Denies paroxysmal nocturnal dyspnea Resp Reports change in phlegm color, Denies chest congestion, Reports cough, Denies hemoptysis, Reports excessive phlegm production, Denies pain on inspiration, Denies pain with cough, Denies stridor and Denies wheezing GI Reports dysphagia Neuro Reports Normal hearing present and Denies headache(s) Endo Denies excessive sweating Aller/Immun Denies itchy eyes, Denies seasonal rhinorrhea and Denies wheezing Physical Exam Vital Signs: Last Vital Signs Pulse 94 07/20/25 09:08 BP 120/88 07/20/25 09:08 Pulse Ox 96 07/20/25 09:08 Oxygen Delivery Method Room Air 07/20/25 09:08 BMI result Body Mass Index 25.1 Const General: cooperative, comfortable, no acute distress and alert Nutritional Appearance: thin Orientation/consciousness: patient oriented x3 HEENT Head: Yes normal to inspection, Yes normocephalic and Yes atraumatic Ears: hearing grossly normal bilaterally and external ears normal Eyes General: appearance normal, both eyes and all related structures Eyelids: Yes eyelids normal Sclerae: sclerae normal EOM: EOMs intact bilaterally Neck Neck: Yes normal visual inspection and Yes no lymphadenopathy Lymphatic: no lymphadenopathy noted Chest Chest palpation & inspection: normal inspection of the chest Resp Effort & Inspection: normal respiratory effort, able to speak in complete sentences, no audible wheezes, no cough, no stridor, not tachypneic, no tripod positioning and no use of accessory muscles Auscultation: crackles (faint inspiratory) bilateral Cardio Jugular venous distension: no JVD Rate: regular rate Rhythm: regular rhythm Skin Other: warm, dry General skin exam: no rashes or lesions noted Neuro General: patient oriented x3 Cranial nerves: Yes Normal hearing present Cognition (Neuro): normal cognition Gait exam (Neuro): Normal gait present Extrem General: Yes normal to inspection, Yes capillary refill normal, Yes no clubbing, cyanosis or edema and Yes no pedal edema Psych Appearance: grossly normal and well kempt Speech and movement: Normal speech and movement present and Clear speech present Affect: normal affect Attitude: cooperative Thought process: Normal thought process present Thought content: Normal thought content present Insight: Good insight present (Psych) Judgement: Good judgement present (Psych) Assessment & Plan Assessment & Plan (1) Chronic pulmonary embolism: Code(s): I27.82 - Chronic pulmonary embolism Category: Medical Qualifiers: Acute cor pulmonale presence: without acute cor pulmonale Pulmonary embolism type: unspecified Qualified Code(s): I27.82 - Chronic pulmonary embolism (2) Asthma: Code(s): J45.909 - Unspecified asthma, uncomplicated Category: Medical (3) Dysphagia: Code(s): R13.10 - Dysphagia, unspecified Category: Medical Qualifiers: Dysphagia type: unspecified Qualified Code(s): R13.10 - Dysphagia, unspecified (4) HIV (human immunodeficiency virus infection): Code(s): Z21 - Asymptomatic human immunodeficiency virus [HIV] infection status Category: Medical Qualifiers: HIV symptom status: unspecified Qualified Code(s): Z21 - Asymptomatic human immunodeficiency virus [HIV] infection status Plan Patient currently with bronchitic symptoms, will treat with doxycycline. If symptoms do not improve patient aware to call or seek emergent care if symptoms worsen. Will also send for CXR given bibasilar inspiratory crackles. Could be related to poor inspiratory effort and incentive spirometer given in office today however may need to consider treatment for Mycobacterium. Encouraged continued use of nebulized therapy and albuterol MDI PRN. Patient has supplemental oxygen at home using 2L NOC, awaiting overnight oximetry to be performed on room air. Will resend order. Advised patient to maintain oxygen saturation > 92%. Currently patient can maintain oxygen saturation >92% on room air with exertion. All questions were answered and patient is in agreement of plan. Will follow up in 8-10 weeks or sooner if needed. Orders: Orders XR chest 2V Today R05.9 - Cough, unspecified Overnight Pulse Oximetry Today G47.34 - Idiopathic sleep related nonobstructive alveolar hypoventilation Medications: Refilled doxycycline hyclate 100 mg PO BID 14 caps 0RF Coding Level of Care Code Est Pt Level 4 (33519) Complex EM visit Add On G2211 Diagnoses Chronic pulmonary embolism I27.82 Acute cor pulmonale presence: without acute cor pulmonale Pulmonary embolism type: unspecified Asthma J45.909 Dysphagia R13.10 Dysphagia type: unspecified HIV infection, unspecified symptom status Z21 HIV symptom status: unspecified
[2025-07-20 09:08] VITALS: BP 120/88; PULSE 94; O2SAT 96; BMI 25.1
--- OUTSIDE RECORDS SUMMARY | 2025-07-20 09:45 | XMS_ITS | Data Portability ---
Author Organization [facility] Address [address] [place] [address] Care Team Providers Care Trauma Coordinator Name Role Phone HIM CCA OTHER Unavailable OTHER Assessment No assessment recorded. Plan of Treatment Reminders Order Date Submit Date Provider Last Modified By Organization Details Last Modified Time Details Appointments None recorded. Lab BMP, serum or plasma 2024 025 [facility], [address] [place] [address], [place], [address] 5 21:20:54 Referral None recorded. Procedures None recorded. Surgeries None recorded. Imaging None recorded. Medication Orders Probiotic (B. coagulans) 1 billion cell chewable tablet 2024 025 [facility] #[id number], [address] [place], [address], 5 05:01:12 clindamycin 75 mg/5 mL oral solution 2024 025 [facility] #[id number], [address] [place], [address], 5 05:01:20 Patient TargetsNo targets recorded. Patient InstructionsNo instructions recorded. Reason for Referral None Reported. Results Created Date Observation Date Name Description Value Unit Range Abnormal Flag Note LastModifiedBy Organization Detail LastModifiedTime Result Notes None recorded. Medical Equipment None Reported. Allergies Allergen ID Allergen Name Allergen Category Reaction Reaction Severity Criticality Documentation Date Start Date Code Code System Note Provider Name and Address Organization Details Recorded Time 28169 Product containin g penicilli n (product) medicatio n rash Not available low 04/10/2025 23379 [id number] GRICELDA HOLLIDAY MD [address] [place] [address],[address], [place], [address], [facility] [employer] 5 19:13:54 7354 acetamino phen medicatio n Not available Not available Not available 07/08/2024 161 RxNorm Not Available [facility] 4 03:36:50 7355 ibuprofen medicatio n Not available Not available Not available 07/08/2024 5640 RxNorm Not Available [facility] - [facility] 4 03:36:50 7356 levofloxa sam medicatio n Not available Not available Not available 07/08/2024 76506 RxNorm Not Available [facility] - production 4 [...] Not Available Not Available No t Available glycopyrrol ate 1 mg tablet TOME BAHMAN TABLETA VIA G-TUBE DOS VECES AL D A active Not Available Not Available No t Available latanoprost 0.005 % eye drops INSTILL 1 DROP INTO BOTH EYES AT BEDTIME active Not Available Not Available No t Available fluconazole 100 mg tablet TOME 1 TABLETA POR V A ORAL TODOS LOS D FOR 21 DAYS active Not Available Not Available No t Available clotrimazol e 10 mg klaudia TAKE 1 TABLET BY MOUTH 3 TIMES A DAY FOR 30 DAYS FOR THRUSH. active Not Available Not Available No t Available doxycycline monohydrate 25 mg/5 mL oral suspension GIVE 20 ML BY MOUTH EVERY 12 HOURS FOR 3 DAYS. active Not Available Not Available No t Available pilocarpine 5 mg tablet TOME 1 TABLETA POR VIA ORAL ITALO VECES AL CHI 90 active Not Available Not Available No t Available nystatin 100,000 unit/mL oral suspension SWISH AND SPIT 5ML BY MOUTH 4 TIMES A DAY X 14 DAYS active Not Available Not Available No t Available Serostim 6 mg subcutaneou s solution active Not Available Not Available N ot Available acetaminoph en 325 mg tablet TOME DOS TABLETAS POR V A ORAL CADA SEIS HORAS CUANDO SEA NECESARIO PARA EL DOLOR-MIL D POR 10 D active Not Available Not Available No t Available prednisone 10 mg tablet TAKE 1 TABLET VIA FEEDING TUBE EVERY DAY active Not Available Not Available No t Available gabapentin 600 mg tablet TOME 1 TABLETA POR V A ORAL ITALO VECES AL D A active Not Available Not Available No t Available doxycycline hyclate 100 mg capsule TOME 1 C PSULA POR V A ORAL DOS VECES AL D A active Not Available Not Available No t Available clindamycin HCl 300 mg capsule TAKE 1 CAPSULE (300 MG) BY MOUTH 3 TIMES DAILY FOR 7 DAYS active Not Available Not Available No t Available albuterol sulfate 2.5 mg/3 mL (0.083 %) solution for nebulizatio n INHALE 1 VIAL EVERY 4 TO 6 HOURS NEEDED FOR SHORTNESS OF BREATH OR WHEEZING active Not Available Not Available No t Available cetirizine 10 mg tablet TOME 1 TABLETA POR V A ORAL TODOS LOS D active Not Available Not Available No t Available cefpodoxime 200 mg tablet TOME 1 TABLETA POR V A ORAL CADA 12 HORAS POR 3 D active Not Available Not Available No t Available azithromyci n 250 mg tablet TAKE TWO TABLETS THE FIRST DAY THEN 1 TABLET DAILY FOR 4 DAYS active Not Available Not Available No t Available prednisone 20 mg tablet TAKE 2 TABLETS BY MOUTH DAILY FOR 3 DAYS STARTING ON Sunday02/03/2025 active Not Available Not Available No t Available clonazepam 1 mg tablet TOME 1 TABLETA POR V A ORAL TODOS LOS D active Not Available Not Available No t Available clindamycin HCl 150 mg capsule TAKE FOUR (4) CAPSULES OF 150 MG CLINDAMYC IN 1 HOUR BEFORE DENTAL PROCEDURE active Not Available Not Available No t Available metronidazo le 500 mg tablet TAKE 1 TABLET VIA FEEDING TUBE 2 TIMES A DAY FOR 7 DAYS active Not Available Not Available No t Available amlodipine 5 mg tablet TOME 1 TABLETA POR V A ORAL TODOS LOS D active Not Available Not Available No t Available tramadol 50 mg tablet TOME BAHMAN TABLETA POR V A ORAL CADA DOCE HORAS PARA DOLOR CATHY CUANDO SEA NECESARIO active Not Available Not Available No t Available acetaminoph en 500 mg tablet TAKE 1 TABLET (500 [...] Available Not Available No t Available clindamycin 75 mg/5 mL oral solution Take 20 mL every 8 hours by oral route for 7 days. 04/24 completed Not Available Not Available Not Available tamsulosin 0.4 mg capsule TOME 1 C PSULA POR V A ORAL TODOS LOS D AL ACOSTARSE active Not Available Not Available No t Available fluconazole 10 mg/mL oral suspension TAKE 10 MLS VIA GASTRIC TUBE ONCE A DAY FOR 14 DAYS active Not Available Not Available No t Available dexamethaso ne 1 mg tablet TAKE 1 TABLET ORALLY DAILY TAKE AT 11 PM AT NIGHT AND GO FOR BLOOD WORK AT 8 AM NEXT MORNING active Not Available Not Available No t Available ascorbic acid (vitamin C) 250 mg tablet TOME BAHMAN TABLETA POR VIA ORAL ONCE DAILY active Not Available Not Available No t Available econazole nitrate 1 % topical cream APPLY TOPICALLY ONCE PER DAY. TO APPLY IN TOENAILS DAILY active Not Available Not Available No t Available mirtazapine 30 mg tablet TOME DOS TABLETAS POR V A ORAL AL ACOSTARSE active Not Available Not Available No t Available Banophen 25 mg tablet TAKE 1-2 TABS BY MOUTH ONCE DAILY NEEDED FOR ITCHINESS . active Not Available Not Available No t Available benztropine 1 mg tablet TOME 1 TABLETA POR V A ORAL DOS VECES AL D A active Not Available Not Available No t Available sulfamethox azole 200 mg-trimetho prim 40 mg/5 mL oral suspension GIVE 20ML BY MOUTH EVERY 12 HOURS VIA G-TUBE active Not Available Not Available No t Available budesonide 0.25 mg/2 mL suspension for nebulizatio n USE 1 VIAL VIA NEBULIZER 2 TIMES A DAY FOR 90 DAYS active Not Available Not Available No t Available Banophen 25 mg capsule TOME BAHMAN O DOS CAPS POR VIA ORAL A DIARIO CUANDO SEA NECESARIO PARA LA PICAZON INSOMNIA active Not Available Not Available No t Available mirtazapine 45 mg tablet TOME 1 TABLETA POR V A ORAL TODOS LOS D AL ACOSTARSE active Not Available Not Available No t Available montelukast 10 mg tablet TOME 1 TABLETA POR V A ORAL TODOS LOS D active Not Available Not Available No t Available propranolol ER 120 mg capsule,24 hr,extended release TAKE 1 CAPSULE BY MOUTH EVERY DAY active Not Available Not Available No t Available cefuroxime axetil 500 mg tablet TAKE ONE TABLET THIS EVENING AND THEN ONE TABLET TWICE A DAY FOR THE NEXT TWO DAYS. active Not Available Not Available No t Available albuterol sulfate HFA 90 mcg/actuati on aerosol inhaler INHALE DANDO DOS SOPLIDOS CADA SEIS HORAS CUANDO SEA NECESARIO PARA LA SIBILANCI A active Not Available Not Available No t Available ipratropium bromide 21 mcg (0.03 %) nasal spray USE 2 SPRAYS UNDER TONGUE AT NIGHT FOR SIALORRHE A active Not Available Not Available No t Available naproxen 500 mg tablet TAKE 1 TABLET BY MOUTH TWICE A DAY NEEDED FOR PAIN active Not Available Not Available No t Available dorzolamide 2 % eye drops PONGA BAHMAN GOTA EN LOS DOS OJOS DOS VECES AL D A active Not Available Not Available No t Available amoxicillin 500 mg-potassiu m clavulanate 125 mg tablet TOME 1 TABLETA POR V A ORAL CADA 12 HORAS POR 7 D active Not Available Not Available No t Available azithromyci n 500 mg tablet TOME 1 TABLETA POR V A ORAL TODOS LOS D POR 3 D active Not Available Not Available No t Available voriconazol e 200 mg/5 mL (40 mg/mL) oral suspension TAKE 5 ML EVERY 12 HOURS BY ORAL ROUTE FOR 21 DAYS, FOR SIENNA GLABRATA ESOPHAGIA L. active Not Available Not Available No t Available megestrol 625 mg/5 mL (125 mg/mL) oral suspension ADMINISTE R 5MLS VIA G-TUBE ONCE DAILY active Not Available Not Available No t Available chlorhexidi ne gluconate 0.12 % mouthwash PLEASE SEE ATTACHED FOR DETAILED DIRECTION S active Not Available Not Available No t Available Advair HFA 115 mcg-21 mcg/actuati on aerosol inhaler PLEASE SEE ATTACHED FOR DETAILED DIRECTION S active Not Available Not Available No t Available Advair HFA 230 mcg-21 mcg/actuati on aerosol inhaler PLEASE SEE ATTACHED FOR DETAILED DIRECTION S active Not Available Not Available No t Available ferrous gluconate 324 mg (38 mg iron) tablet TOME 1 TABLETA POR V A ORAL DOS VECES AL D A active Not Available Not Available No t Available budesonide- formoterol HFA 80 mcg-4.5 mcg/actuati on aerosol inhaler INHALE 2 PUFFS BY MOUTH TWO TIMES A DAY active Not Available Not Available No t Available Combigan 0.2 %-0.5 % eye drops ADMINISTE R 1 DROP INTO BOTH EYES 2 TIMES DAILY. active Not Available Not Available No t Available Chest Congestion Relief 100 mg/5 mL oral liquid TAKE 10 ML BY MOUTH THREE TIMES DAILY NEEDED FOR COUGH active Not Available Not Available No t Available Metamucil (with sugar) 3.4 gram/12 gram oral powder TAKE 5.12 G (3 G OF FIBER) BY MOUTH 2 TIMES DAILY. active Not Available Not Available No t Available calcium 600 mg (as carbonate)- vitamin D3 20 mcg (800 unit) tablet TOME [...] Not Available Not Available No t Available naloxone 4 mg/actuatio n nasal spray PLEASE SEE ATTACHED FOR DETAILED DIRECTION S active Not Available Not Available No t Available Biktarvy 50 mg-200 mg-25 mg tablet TOME 1 TABLETA POR V A ORAL TODOS LOS D FOR 30 DAYS active Not Available Not Available No t Available Rocklatan 0.02 %-0.005 % eye drops ADMINISTE R 1 DROP INTO AFFECTED EYE(S) AT BEDTIME. active Not Available Not Available No t Available Probiotic (B. coagulans) 1 billion cell chewable tablet Take 1 tablet twice a day by oral route for 14 days. 05/01 completed Not Available Not Available Not Available Vitals Date Recorded Respiratory rate Body temperature Heart rate Oxygen saturation Oxygen saturation in Arterial blood by Pulse oximetry Systolic And Diastolic Provider Name and Address Organization Details Last Updated DateTime 4 16 /min 98.6 [degF] 52 /min 95 % 95 % 98/56 mm[Hg] Not Available [facility] 4 16:50:48 Date Recorded Respiratory rate Body height Body weight Oxygen saturation Oxygen saturation in Arterial blood by Pulse oximetry Heart rate Body temperature Systolic And Diastolic Provider Name and Address Organization Details Last Updated DateTime 5 19 /min 167.64 cm 76562.6 56 g 95 % 95 % 98 /min 98.6 [degF] 117/83 mm[Hg] Not Available [facility] production 19:08:15 Social History None recorded. Functional Status None recorded. Mental Status None recorded. Family History Nothing Reported. Medical History No medical history recorded. Past Encounters Encounter ID Performer Location Encounter Start Date Encounter Closed Date Diagnosis/Indication Diagnosis SNOMED-CT Code Diagnosis ICD10 Code Diagnosis IMO Codes Diagnosis Note [id number] DERRELL HOLLIDAY MD [facility] [address] [place] [phone] 03/06/2024 16:50:44 03/07/2024 17:38:50 Lethargy [id number] R53.83 Evaluation in the field was performed by my vault custodian colleague. As noted above, I provided real-time [...] He is afebrile. Per discussion with the vault custodian, the patient looked lethargic, walked with an [...] n. The patient was transferre d to [facility] for further evaluation and treatment. His PCP was informed of the transfer to the ED. Primary care, consider__ _ Dispositio n:[facility] [id number] DERRELL HOLLIDAY MD [facility] ED Medical [facility] [address] [place] [address] 04/10/2025 19:08:12 04/10/2025 22:37:12 Cellulitis of periorbital region of left eye [id number] L03.213 [id number] Evaluation in the field was performed by my vault custodian colleague, as noted above, I provided real-time direction and supervisio n for this visit. The evaluation revealed 60-year-ol d male with a complex medical history including asthma, hypertensi on, hepatitis C, seizures, Parkinson s disease, dysphagia, and PEG tube, with complains of left eyelid pain, swelling, and discharge. Patient denies eye pain at rest or with movement and reports no visual changes. He also denies fever, chills, chest pain, shortness of breath, nausea, vomiting, diarrhea, or abdominal pain. VS: BP 117/ 83, HR 98, RR 19, SpO2 95%, Room Air at RestTemp 98.6 FExam:Aler t and oriented, in no acute distressLu ngs: Clear to auscultati on bilaterall yLeft eye: Mild swelling and redness of both upper and lower eyelid; no conjunctiv al injection, no drainage, pupils equal, round, and reactive to lightNo periorbita l fluctuance or tenderness No proptosis or pain with extraocula r movementBM P reviewedAl lergies reviewed: Reports rash to penicillin Impression :Left periorbita l (preseptal ) cellulitis mild, no evidence of orbital involvemen tNo systemic signs of infectionN o signs of abscess or conjunctiv itis Plan:Start ed on Clindamyci n 300 mg TID for 7 days (covers MRSA and Streptococ cus, avoids penicillin allergy)Pt advised to apply warm compresses to the affected eyelid 3 4 times dailyMonit or closely for progressio n of symptoms, including: visual changes, pain with eye movement, fever or worsening swellingPt advised to go to ED if any red flags developFol low-up with us or PCP in 48 7 2 hours to assess clinical responseEn couraged hydration via PEG and maintain usual medication s Primary care, consider__ _ Dispositio n: We discussed the diagnostic uncertaint y of home visits and the risk associated with this. In this case, the patient and I felt this to be an acceptable and reasonable amount of risk given the benefit of avoiding an ED visit. We discussed the need to seek care urgently/e mergently in the setting of any new or worsening serious symptoms, particular ly visual changes, pain with eye movement, fever or worsening swelling Health Concerns Section Related Observation LastModified by Organization Detai ls LastModified Time None Recorded Concern Status LastModified by Organization Details LastModified Time None Recorded Advance Directives Directive None Recorded Payers Insurance Date Sequence Insurance Name Policy Number Policy Perry Covered Member ID Perry Member ID Guarantor Name 04/10/2025 1 [facility] - DOS ON OR AFTER 2022 - DUAL ELIGIBLE - RETIREMENT OPTIONS AND ONE CARE (MEDICARE REPLACEMENT/ADV ANTAGE - HMO) [facility] Juan David [id number] [facility] Juan David Notes Date Note Type Note Provider Name and Address Organization Details Recorded Time 03/06/2024 text/html ROS as noted in the HPI HPI: HX: Asthma, HTN, Hep C, Seizures, Parkinsons. Dysphagia, Peg tubeHome evaluation of patient with complaints of headache and body aches with sore throat for two days. Pain not relieved per patient with Tylenol though listed as allergy. .................... .................... .................... .................... .................... .................... .................... . [facility] Nurse Triage Notes (Kelsi Marshall): Comments: [facility] RN DID NOT NEED further info .................... .................... .................... .................... .................... .................... .................... . Industrial Property Appraiser Note From Francisco Ley: Dispatched to above address for headache sore throat. On arrival patient met [facility] at the door. Initially patient denied calling for medical help or having any symptoms. [facility] confirmed patient name and address, after this [...] focus on current situation, poor affect, lethargic. [facility] contacted, spoke with Dr. Holliday, advised of patient complaints and exam findings. [facility] agreed further evaluation in the ER is necessary for this patient. Patient agreed to this. Patients neighbor who assists patient arrived to check on him. She reports this doesn't seem like his normal mentation but cannot be sure. 911 called. [facility] responded. Verbal report given to [facility] Industrial Property Appraiser. [facility] vault custodian took over patient care. [facility] clear. [facility]. .................... .................... .................... .................... .................... .................... .................... . Disposition: Shahzad DERRELL HOLLIDAY MD [address] [facility],[address], [place], [address], [employer] 03/06/2024 18:02:19 04/10/2025 text/html ROS as noted in the HPI HPI: Member's MARKET DEVELOPMENT SPECIALIST, Ashtyn, phoned in without member present requesting a [...] will like to be evaluated at home. .................... .................... .................... .................... .................... .................... .................... . [facility] Nurse Triage Notes (Robby Christianson): Reason For Request: pink eye Chief Complaints: Eye Complaint PMH: COPD/Asthma, Hypertension, HIV/AIDS, Asthma, Depression, Fibromyalgia, Migraine, Anxiety Disorder, Hepatitis C PMH Reviewed at 04/10/2025 - 15:25 Allergies Reviewed at 04/10/2025 - 15:25 Comments: HPI reviewed by this RN, no further information needed to process visit -Crystal Christianson RN Industrial Property Appraiser Organization Information for [facility] [employer] Legal Name: [facility] Transportation Address: [address] [place] [address], [place] [address], Glass Worker: Fabio Melendez MD CLIA No.: [id number] Industrial Property Appraiser POC Test Results from [facility] (19:25:03) pH: 7.479pH units pCO2: 30.0mmHg pO2: 61.0mmHg Na: 141mmol/L K: 3.7mmol/L iCa: 1.10mmol/L Cl: 110mmol/L TCO2: 21.1mEq/L Hct: 41% Hb: 13.9g/dL Glu: 135mg/dL Lac: 1.99mmol/L Cr: 0.96mg/dL BUN: 7mg/dL Ammol/L HCO3: 22.3mmol/L Attachments uploaded as part of this test result can be found under Documents section. .................... .................... .................... .................... .................... .................... .................... . Industrial Property Appraiser Note From [facility]: Pt chief complaint today of pink eye in his left eye. Pt notes that all signs and symptoms have been occurring for approx 2 days prior to [facility] arrival at scene. Pt state that he [...] or worsening lower extremity edema. Upon assessment of the left eye pt notes no civics on change, painful upon palpation, pain or movement of he eyeball but no pain directly on the eyeball itself. Itchy. Pt is CAOX4 with a GCS of 15. POC bloodwork notes no significant irregularities. [facility] Derrell Holliday consulted. Pt is informed of findings. Prescription for Clindamycin sent to pharmacy. Pt is also inform to use warm compresses on the area every 6-8 hours as needed. Pt also inform to call his pcp at earliest convenience for follow up as needed. Education provided on red flag S&S and pt informed to call emergency services if any present. [facility] Lab Orders: BMP, serum or plasma: Performed .................... .................... .................... .................... .................... .................... .................... . [facility] Consulted: Derrell Holliday .................... .................... .................... .................... .................... .................... .................... . Disposition: Shahzad HOLLIDAY MD [address] [facility],[address], [place], [address], KEERTHI BLOCK 04/10/2025 20:15:00
--- OUTSIDE RECORDS SUMMARY | 2025-07-20 09:45 | XMS_ITS | Data Portability ---
Author Organization [facility] [employer] [facility], Main Office Address [address], [address] [place] [address] Care Team Providers Care Dental Equipment Repairer Name Role Phone BRENDAN HOLLINGSWORTH - 2ND FLOOR OTHER Assessment Encounter Date Assessment Date Assessment LastModified by Organization Details LastModified Time 09/18/2023 09/18/2023 45 minutes spent on coordination of discharge. [email or web address] Not available 09/18/2023 09:47:05 Plan of Treatment [...] and Address Organization Details Recorded Time Asthenia 20072594 Active 2022 MAURO DUFFY NP [address] [facility], [address], [place], [address], [facility] [employer] 3 12:08:07 Moderate protein-calori e malnutrition (weight for age 60-74 percent of standard) 752347832 Active 2022 MAURO DUFFY NP [address] [facility], [address], [place], [address], [facility] [employer] 3 12:08:23 Pneumonia 525885879 Active 2022 MAURO DUFFY NP [address] [facility], [address], [place], [address], [facility] [employer] 3 12:08:31 Pleural effusion 96156672 Active 2022 MAURO DUFFY NP [address] [facility], [address], [place], [address], [facility] [employer] [facility] 3 12:08:59 Hypertensive disorder 51213449 Active 2022 MAURO DUFFY NP [address], [address], [place], [address], [facility] [employer] [facility] 3 12:09:07 Human immunodeficien cy virus infection 55457460 Active 2022 MAURO DUFFY NP [address], [place], [address], [facility] [employer] [facility] 3 12:09:12 Viral hepatitis C 94523222 Active 2022 MAURO DUFFY NP [address] [facility], [address], [place], [address], [facility] [facility] 3 12:09:28 Mixed anxiety and depressive disorder 335622976 Active 2022 MAURO DUFFY NP [address] [facility], [address], [place], [address], [facility] 3 12:09:40 Asthma 491917155 Active 2022 MAURO DUFFY NP [address] [facility], [address], [place], [address], [employer] [facility] 3 12:09:56 Acute dermatitis 47838933 Active 2022 MAURO DUFFY NP [address], [place], [address], [facility] 3 12:14:27 Migraine 80182296 Active 2022 MAURO DUFFY NP [address] [facility], [address], [place], [address], [facility] 3 12:25:08 Non-traumatic rhabdomyolysis 581298784 Active 2022 Leilani Romeo MD [address], [address], [place], [address], [facility] 3 10:08:19 Moderate persistent asthma 470748087 Active 2022 Leilani Romeo MD [address], [address], [place], [address], [facility] 3 10:18:10 Insomnia 161168859 Active 2022 Leilani Romeo MD [address], [address], [place], [address], [facility] 3 10:19:09 Harmful pattern of use of multiple substances 873191872 Active 2022 Leilani Romeo MD [address], [address], [place], [address], [facility] 3 10:19:11 Adult failure to thrive syndrome 362545379 Active 2022 Maryjane Glover NP [address], [address], [place], [address], [facility] 3 13:27:15 Anemia 091297387 Active 2022 Maryjane Glover NP [address] [facility], [address], [place], [address], [facility] 3 13:30:43 Dysphagia 96560456 Active 2022 Leilani Romeo MD [address], [place], [address], [facility] 3 20:51:38 Gastroesophage al reflux disease without esophagitis 407207748 Active 2022 Leilani Romeo MD [address], [place], [address], [facility] 3 20:54:24 Chronic pain 63385642 Active 2022 Leilani Romeo MD [address], [address], [place], [address], [facility] 3 20:55:56 Problem Notes None recorded. Medical Equipment None Reported. Allergies Allergen ID Allergen Name Allergen Category Reaction Reaction Severity Criticality Documentation Date Start Date Code Code System Note Provider Name and Address Organization Details Recorded Time 91856 codeine medicatio n Not available Not available Not available 01/17/2023 5800 RxNorm rash MAURO DUFFY NP [address], [address], [place], [address], [facility] 3 12:06:48 36748 Levaquin medicatio n Not available Not available Not available 01/17/2023 06570 2 RxNorm rash MAURO DUFFY NP [address] [facility], [address], [place], [address], [facility] 3 12:06:58 49382 Reglan medicatio n Not available Not available Not available 01/17/2023 9230 RxNorm rash MAURO DUFFY NP [address] [facility], [address], [place], [address], [facility] 3 12:07:11 92659 ibuprofen medicatio n Not available Not available Not available 01/17/2023 5640 RxNorm reflu x MAURO DUFFY NP [address] [facility], [address], [place], [address], [facility] 3 12:07:28 74459 Product containin g penicilli n (product) medicatio n Not available Not available Not available 01/17/2023 35345 8001 SNOMED rash MAURO DUFFY NP [address] [facility], [address], [place], [address], [facility] 3 12:07:45 17043 Ultram medicatio n Not available Not available Not available 01/17/2023 35335 6 RxNorm N/V MAURO DUFFY NP [address] [facility], [address], [place], [address], [facility] 3 12:07:56 84978 acetamino phen medicatio n other Not available unabletoasse 08/03/2023 161 RxNorm unkno wn Maryjane Glover NP [address] [facility], [address], [place], [address], [facility] 3 13:00:59 69662 PO[employer] environme nt,medica tion other Not available unabletoasse 08/03/2023 08268 6 RxNorm unkno wn Maryjane Glover NP [address] [facility], [address], [place], [address], [facility] 3 13:01:38 Medications Name Sig Start [...] Details Last Updated DateTime 4 167.64 cm 23326.5 4 g 88 /min 18 /min 97.6 [degF] 96 % 96 % 133/85 mm[Hg] Maryjane Glover NP [address] [facility] [address], [place], [address], [facility] 4 19:10:48 Date Recorded Body height Heart rate Respiratory rate Body temperature Oxygen saturation Oxygen saturation in Arterial blood by Pulse oximetry Systolic And Diastolic Provider Name and Address Organization Details Last Updated DateTime 4 167.64 cm 84 /min 18 /min 97.5 [degF] 98 % 98 % 133/85 mm[Hg] MAURO DUFFY NP [address] [facility], [address], [place], [address], [facility] 4 08:57:54 Date Recorded Body height Body weight Body mass index (BMI) Heart rate Respiratory rate Body temperature Oxygen saturation Oxygen saturation in Arterial blood by Pulse oximetry Systolic And Diastolic Provider Name and Address Organization Details Last Updated DateTime 3 167.64 cm 04179.5 4 g 17.4 kg/m2 86 /min 18 /min 97.6 [degF] 91 % 91 % 115/68 mm[Hg] Maryjane Glover NP [address] [facility], [address], [place], [address], [facility] 3 11:08:33 Date Recorded Body height Body weight Heart rate Respiratory rate Body temperature Oxygen saturation Oxygen saturation in Arterial blood by Pulse oximetry Systolic And Diastolic Provider Name and Address Organization Details Last Updated DateTime 3 167.64 cm 15777.5 4 g 72 /min 18 /min 97.1 [degF] 96 % 96 % 115/68 mm[Hg] Maryjane Glover NP [address] [facility], [address], [place], [address], [facility] 3 13:10:32 Date Recorded Body height Body mass index (BMI) Body weight Heart rate Systolic And Diastolic Provider Name and Address Organization Details Last Updated DateTime 09/07/2023 167.64 cm 17.3 kg/m2 83823.38 g 74 /min 133/85 mm[Hg] Dilia Mikki Hutchinson [address] [facility], [address], [place], [address] , [facility] 09/07/2023 13:13:45 Social History Question Answer Notes LastModified by [employer] Details LastModified Time Tobacco Smoking Status Never Smoker MAURO DUFFY NP [address] [facility], [address], [place], [address], [facility] 01/17/2023 11:35:26 Do You Have An Advance Directive? Yes [email or web address] Information not available 01/17/2023 What Is Your Code Status? Full Code [email or web address] Information not available 01/17/2023 Where Do You Live? Apartment With Elevator, Family Near By, Helpful [email or web address] Information not available 01/17/2023 What Was The Date Of Your Most Recent Tobacco Screening? 08/03/2023 Information not available 08/03/2023 Has Tobacco Cessation Counseling Been Provided? No [email or web address] Information not available 01/17/2023 Sex: Unknown Functional Status Question Answer Note LastModified by Organizat ion Details LastModified Time Do you use any illicit or recreational drugs? No noted past use cocaine Information not available 08/03/2023 Do you or have you ever used any other forms of tobacco or nicotine? No Information not available 01/17/2023 What is your level of alcohol consumption? None [email or web address] Information not available 01/17/2023 Mental Status None recorded. Family History Relationship Description Onset Age of this Age Resolved Age Notes LastModified by Organization Details LastModified Time Mother Malignant neoplasm of lung [email or web address] Not available 2022 11:34:21 Medical History No medical history recorded. Immunizations Vaccine Type Date Status Note Provider Nam e and Address Organization Details Recorded Time COVID-19, mRNA, LNP-S, bivalent, PF, 50 mcg/0.5 mL or 25mcg/0.25 mL dose 2 completed Asia juarez [facility] 09/11/2023 13:44:56 COVID-19, mRNA, LNP-S, bivalent, PF, 50 mcg/0.5 mL or 25mcg/0.25 mL dose 3 completed Asia juarez [facility] 09/11/2023 13:45:39 Pneumococcal conjugate PCV20, polysaccharide [id number] conjugate, adjuvant, PF 3 completed Asia juarez [facility] 09/11/2023 13:46:16 Influenza, adjuvanted, quadrivalent, PF 3 completed Asia juarez [facility] 09/11/2023 13:46:36 Influenza, adjuvanted, quadrivalent, PF 2 completed Asiayahaira Andre Chan [facility] 10/24/2023 13:13:32 Past Encounters Encounter ID Performer Location Encounter Start Date Encounter Closed Date Diagnosis/Indication Diagnosis SNOMED-CT Code Diagnosis ICD10 Code Diagnosis IMO Codes Diagnosis Note [id number] MAURO DUFFY NP [facility] [address] [facility] [place] [place] [address] 01/17/2023 11:16:19 01/22/2023 12:34:21 Pleural effusion 66294330 J90 and empyema, resp. failures/p L chest tube, intubation Clinically improved.M onitor VS, sats, LS, CP status closely for decompensa tion Pneumonia 868051579 J18. 9 Treated with IV zosyn in hosp.Clini lesly improved.A s above, monitlr VS, sats, LS, CP status closely Asthenia 25046161 R53.1 PT OT eval and tx. Moderate protein-calorie malnutrition (weight for age 60-74 percent of standard) 856983245 E44.0 Started supplement s in hosp.Refer to human resources department supervisor here.Seen by ST in hosp, diet changed to chopped/ad vanced consistenc yOn reg. diet here, doing well. Refer to rehab to try to get bedside FEES testing Hypertensive disorder 38 626293 I10 On norvasc 5 mg dailyPropr anolol ER held in hosp., instructed to resume 03/09, unclear as to why held or if used for something else?Monio r VS, adjust meds prn Human immunodeficiency virus infection 11912109 B20 Continue biktarvy Mixed anxi ety and depressive disorder 913584378 F41.8 Continue home meds:clona zepam 1 mg daily? risperdal 2 mg HSremeron 60 mg HSMonitor mood, behaviors for changePsyc h eval prn Asthma 141966359 J45.90 9 Continue flovent bidMonitor resp. status for change Acute dermatitis 9647275 6 L30.9 bilat. groin, fungalstar t nystatin cream or powder bid x 14 days or until clearmonit or Migraine 16227166 G43.90 9 Continue home meds:Celeb monica 200 mg bidgabapen tin 600 mg tidibuprof en 800 mg q8 hr prnultram 50 daily prn? clonazepam 1 mg daily? risperdal 2 mg HS? propranolo l Er 120 mg daily - held in hosp - cont. to hold here, resume date of 03/09 [id number] Kenia Michaels MD [address] [address] 01/19/2023 07:22:18 01/22/2023 15:16:30 Pneumonia 394875574 J15.8 antibiotic s completeds /p empyema, respirator y failure, intubation will monitor Asthenia 44729893 R53.1 PT/OTwill monitor Human immunodeficiency virus infection 84024669 B20 Biktarvy 50-200-25 dailyfu I.D. Essential hypertension 42348144 I10 amlodipine 5 mg dailywill monitor Mixed anxi ety and depressive disorder 797483179 F41.8 gabapentin 600 mg tidmirtaza pine 60 mg at hsrisperid one 2 mg at hsclonazep am 1 mg dailywill monitor Gastroesop hageal reflux disease without esophagitis 860344829 K21.9 pantoprazo le 40 mg dailywill monitor Chronic pain 59509018 G8 9.29 gabapentin 600 mg tidhospita l discharge notes include:ce lecoxib 200 m bid, ibuprofen 800 mg q8h prn, tramadol 50 mg daily prnwill monitor and consider if needed [id number] Panchito Morales NP [facility] on [address] [place] [address] 06/30/2023 08:20:37 07/03/2023 11:44:52 Human immunodeficiency virus infection 03495795 B20 06/30/23mo nitorID consult as indicated- biktarvy (bictegrav ir, emtricitab ine & tenofovir alafenamid e) 50-200-25m g QD Hypertensive disorder 38 268086 I10 06/30/23mo nitorcards FU PRNavoid beta barb with HX of cocaine abuse-amlo dipine 5mg QD Mixed anxi ety and depressive disorder 347264692 F41.8 06/30/23mo nitorpsych consult PRN-risper idone 3mg QHS Viral hepatitis C 440125 07 B19.20 06/30/23mo nitor [id number] Leilani Romeo MD [facility] on [address] [place] [address] 07/02/2023 17:00:01 07/12/2023 14:37:46 Human immunodeficiency virus infection 15674150 B20 Non-detect able on last checkConti nue biktarvy (bictegrav ir, emtricitab ine & tenofovir alafenamid e) 50-200-25m g QDF/U with ID as planned. Hypertensive disorder 38 123035 I10 BP good since here.Sam nue amlodipine 5 mg qdMonitor BP and labs. Mixed anxi ety and depressive disorder 424368173 F41.8 Mood stable.Con tinue risperidon e 3 mg qhs, mirtazapin e 30 mg qhs, and clonazepam 1 mg qd.Monitor mood.Psych consult prn. Viral hepatitis C 311305 07 B18.2 Unclear hx.LFTs WNL.F/U as outpt. Acute chest pain 5375623 01 R07.89 Per cardio not ACS.Monito r sxs.F/U with cardio prn. Non-trauma tic rhabdomyolysis 121490683 M62.82 CPK trended down inpt.No need to monitor further. Moderate p ersistent asthma 796359814 J45.40 No SOB or hypoxia, but with junky cough as above.Cont inue Advair 230/21 two puffs BID, Flovent 2 puffs BID, and albuterol/ budesonide 2 puffs q 6 hrs prn.Monito r resp status. 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 Cough 25830124 R05.8 Sounds junky, but pt says it feels like tickle in throat. Maybe post nasal drip.Lungs clear, but still could be early PNA.Will start Robitussin DM 10 ml q 4 hrs prn and get CXR tomorrow.M onitor resp status. Insomnia 341757113 G47.0 9 Will try melatonin 5 mg qhs.Monito r sleep patterns. [id number] MIGUEL BROWN [facility] on [address] [place] [address] 07/05/2023 08:16:20 07/12/2023 16:01:31 Mixed anxiety and depressive disorder 384637865 F41.8 07/05: his mood is stablecont inue:clona zepam 1 mg dailyrispe ridone 3 mg daily at bedtime.Mi rtazapine 30 mg at bedtime daily.tu tonin 5 mg at bedtime daily Cough 49195734 R05.8 07/05: non productive upper airway congested coughThere is no SOB. LS are clearCXR completed; no active pulmonary infiltrate s or pleural effusions seen.Robit ussin DM 10 ml q 4 hrs prn- will scheduled for a few days, does not look like he requested prn.Monito r resp status. Harmful pa ttern of use of multiple substances 332978354 F19.10 Most often cocaine, but sometimes other things.Con tinue SUDs counseling while here and encourage abstinence and outpt f/u. [id number] MIGUEL BROWN [facility] on [address] [place] [address] 07/06/2023 09:35:29 07/12/2023 16:16:45 Mixed anxiety and depressive disorder 644648709 F41.8 continue:c lonazepam 1 mg dailyrispe ridone 3 mg daily at bedtime.Mi rtazapine 30 mg at bedtime daily.tu tonin 5 mg at bedtime dailyfollo w up with outpatient PCP. Cough 99585925 R05.8 CXR on 07/03/23 negative for any acute process.Ro bitussin DM 10 ml q 4 hrs prnfollow up with outpatient PCP. Acute dermatitis 2095602 6 L30.9 continueny statin cream BID as needed until clearedfol low up with outpatient PCP. Asthma 851310883 J45.90 9 Advair 230/21 two puffs BID,Floven t 2 puffs BID, andalbuter ol/budeson kentrell 2 puffs q 6 hrs prn.follow up with outpatient PCP. Human immunodeficiency virus infection 69124077 B20 Continue biktarvy (bictegrav ir, emtricitab ine & tenofovir alafenamid e) 50-200-25m g QD Hypertensive disorder 38 337145 I10 Continue amlodipine 5 mg qdfollow up outpatient Insomnia 955849184 G47.0 9 melatonin 5 mg at bedtime Migraine 96269577 G43.90 9 Continue home meds: Celebrex 200 mg bid gabapentin 600 mg tid ibuprofen 800 mg q8 hr prn ultram 50 daily prn clonazepam 1 mg daily risperdal 3 mg HS follow up with PCP Viral hepatitis C 169271 07 B18.2 follow labs outpatient follow up with outpatient pcp. [id number] Maryjane Glover NP [address] [address] 08/03/2023 12:58:35 08/08/2023 10:07:33 Human immunodeficiency virus infection 37513146 B20 ID consult prnbiktarv y (bictegrav ir, emtricitab ine & tenofovir alafenamid e) 50-200-25m g QD Asthenia 51474031 R53.1 PT/OT treat and evalwill monitor Essential hypertension 67951746 I10 amlodipine 5 mg dailywill monitor Mixed anxi ety and depressive disorder 628885318 F41.8 gabapentin 600 mg tidmirtaza pine 60 mg at hsrisperid [facility] [place] 1 mg dailypsych prnwill monitor Gastroesop hageal reflux disease without esophagitis 865129727 K21.9 With recent workup in hosp and PEG placed.use G tube for feedings/m edswill monitor Chronic pain 15341144 G8 9.29 gabapentin 600 mg tidtramado l 50 mg prn dailymulti ple allergies notedwill monitor and consider if needed Harmful pa ttern of use of multiple substances 510867393 F19.10 Most often cocaine per hx with overdoses notedConti nue counseling while here and encourage abstinence and outpt f/u. Asthma 107971596 J45.90 9 advair 2 puff bidalbuter ol 2 puffs q 6 hours prn wheezingMo nitor resp. status for change Viral hepatitis C 546648 07 B18.2 fu with labscurren tly stable liver enzymesmon itor Moderate protein-calorie malnutrition (weight for age 60-74 percent of standard) 148562164 E44.0 now on PEG tube with feedings at 60cc/hrRef er to human resources department supervisor here.Seen by in hosp, unclear why he has dysphagia and difficulty eating with workup including [facility]GD at [facility] recentlysp eech eval and treat here to see if he can take po intakemoni tor Anemia 996251986 D64.9 ferrous gluconate 324 dailymonit or cbc weekly Adult fail ure to thrive syndrome 020459958 R62.7 g tube feedings and meds through g tube at 60cc/hrfai lure to thrive with supplement s in pastspeech to eval and treat, consider reintroduc ing foods when ableweight s weeklymoni tor Insomnia 224978929 G47.0 9 benedryl 25 mg qhsmonitor [id number] Leilani Romeo MD [address] [place] [address] 08/06/2023 16:28:34 08/08/2023 11:16:44 Adult failure to thrive syndrome 392166552 R62.7 With marked wt. loss over past few months.Con tinue Jevity 1.0 or 1.2 tanya/ml at 60 ml/hr.Stil l unable to swallow, unknown reason.Con momo [employer] interventi ons to hopefully enable him to eat again.Cait gardner wts and labs. Moderate protein-calorie malnutrition (weight for age 60-74 percent of standard) 788218959 E44.0 As above. Human immunodeficiency virus infection 73962203 B20 Last labs show zero viral load.Sam nue Biktarvy (bictegrav ir, emtricitab ine & tenofovir alafenamid e) 50-200-25m g QDF/U with ID as planned. Asthenia 19566212 R53.1 Very deconditio armen.Needs PT/OT for strengthen ing, balance, gait training, safety and function.C ontinue fall precaution s.Monitor for safety. Essential hypertension 65860933 I10 BP running low since here, should improve as nutritiona l status improves.C ontinue amlodipine 5 mg qdMonitor BP and labs. Gastroesop hageal reflux disease without esophagitis 510346510 K21.9 On no meds.I wonder if starting a PPI may help with throat pain?Monit or Chronic pain 40218765 G8 9.29 No c/o tonight.Co ntinue gabapentin 600 mg TID and tramadol 50 mg qd prnMonitor sxs. Asthma 869988739 J45.30 Asthma meds transcribe d incorrectl y on admission here.Was not put on Advair, but rather only albuterol/ budesonide prn.Will restart Advair 230/21 mcg two puffs BIDMonitor resp. status Anemia 024924502 D64.89 Not currently anemic.Con tinue ferrous gluconate 324 mg qdMonitor labs Mixed anxi ety and depressive disorder 095076941 F41.8 Mood stable.Con tinue risperidon e 3 mg qhs, mirtazapin e 60 mg qhs, and clonazepam 1 mg qd.Monitor mood.Psych consult prn. Viral hepatitis C 984098 07 B18.2 Unclear hx.LFTs WNL.F/U as outpt. Harmful pa ttern of use of multiple substances 463115702 F19.10 Most often cocaine, but sometimes other things.Con tinue counseling and encourage abstinence and outpt f/u. Dysphagia 45546766 R13.1 9 Unknown etiology.C ontinue G-tube feeding as above.Cons ider ENT consult. [id number] Maryjane Glover NP [address] [address] 08/16/2023 12:26:03 08/22/2023 11:29:11 Adult failure to thrive syndrome 717466009 R62.7 With marked wt. loss over past few months.Con braydenueJevit y 1.5 tanya/ml at 60 ml/hr. human resources department supervisor following and will adjust as neededStil l unable to swallow, unknown reason.Mehrdad barr [employer] interventi ons to hopefully enable him to eat again.Cait tor wts and labs. Dysphagia 44446417 R13.1 9 Unknown etiology.C ontinue G-tube feeding as above.Cons ider ENT consult. Moderate protein-calorie malnutrition (weight for age 60-74 percent of standard) 290263110 E44.0 As above. Human immunodeficiency virus infection 21743681 B20 Last labs show zero viral load.Sam nueBiktarv y (bictegrav ir, emtricitab ine & tenofovir alafenamid e) 50-200-25m g QDF/U with ID as planned. Asthenia 45825761 R53.1 Very deconditio armen.Needs PT/OT for strengthen ing, balance, gait training, safety and function.C ontinue fall precaution s.Monitor for safety. Essential hypertension 33978704 I10 BP running low since here, should improve as nutritiona l status improves.a mlodipine 5 mg qdMonitor BP and labs. Gastroesop hageal reflux disease without esophagitis 643190272 K21.9 no meds.Monit or Chronic pain 83016024 G8 9.29 has mild headache todayConti nuegabapen tin 600 mg TIDtramado l 50 mg qd prnMonitor sxs. Asthma 522348856 J45.30 Asthma meds transcribe d incorrectl y on admission here.albut maddi/budes onide prn.Advair 230/21 mcg two puffs BIDMonitor resp. status Anemia 565461223 D64.89 Not currently anemic.juan carlos l order cbc and bmp weekly [id number] gluconate 324 mg qdMonitor labs Mixed anxi ety and depressive disorder 765158467 F41.8 Mood stable.ris peridone 3 mg qhsmirtaza pine 60 mg qhs,clonaz epam 1 mg qd.Monitor mood.Psych consult prn. Viral hepatitis C 672673 07 B18.2 Unclear hx.LFTs WNL.F/U as outpt. Harmful pa ttern of use of multiple substances 607870390 F19.10 Most often cocaine, but sometimes other things.Mehrdad barr counseling and encourage abstinence and outpt f/u. [id number] Maryjane Glover NP [address] [phone] 08/22/2023 11:06:38 08/28/2023 14:23:57 Adult failure to thrive syndrome [id number] R62.7 With marked wt. loss over past few months.Con momoJevit y 1.2 tanya/ml at 67ml/hr. human resources department supervisor following and will adjust as neededStil l unable to swallow, unknown reason.Mehrdad barr [employer]ER interventi ons to hopefully enable him to eat again.Cait tor wts and labs.08/22 human resources department supervisor to assess if bolus feedings can be attempted for homefamily /pt needs g tube care/teach ing for ? dc homemonito r Asthenia 44028371 R53.1 Very deconditio armen, improving every week with therapyNee ds PT/OT for strengthen ing, balance, gait training, safety and function.C ontinue fall precaution s.Monitor for safety. Dysphagia 82082653 R13.1 9 Unknown etiology.C ontinue G-tube feeding as above.Cons ider ENT consult. Anemia 442685378 D64.89 Not currently anemic.juan carlos scales order cbc and bmp weekly u0girugpj gluconate 324 mg qdMonitor labs Moderate protein-calorie malnutrition (weight for age 60-74 percent of standard) 427888116 E44.0 As above. Human immunodeficiency virus infection 83074584 B20 ContinueBi ktarvy (bictegrav ir, emtricitab ine & tenofovir alafenamid e) 50-200-25m g QDF/U with ID as planned. Essential hypertension 42659525 I10 BP now improving as nutritiona l status improves.1 10s-130s /60scontam lodipine 5 mg qdMonitor BP and labs. Gastroesop hageal reflux disease without esophagitis 226937839 K21.9 no meds.Monit or Chronic pain 72714541 G8 9.29 headache resolvedCo ntinuegaba pentin 600 mg TID, no pain todaytrama dol 50 mg qd prnMonitor sxs. Asthma 809116141 J45.30 Asthma meds transcribe d incorrectl y on admission here.albut maddi/budes onide prn.Advair 230/21 mcg two puffs BIDMonitor resp. status Mixed anxi ety and depressive disorder 582629290 F41.8 Mood stable and ding wellrisper idone 3 mg qhsmirtaza pine 60 mg qhs,clonaz epam 1 mg qd.Monitor mood.Psych consult prn. [id number] Maryjane Glover NP [address] [phone] 08/29/2023 08:14:48 08/30/2023 19:42:34 Adult failure to thrive syndrome 159208448 R62.7 With marked wt. loss over past few months.Con tinueJevit y 1.2 tanya/ml at 67ml/hr. human resources department supervisor following and will adjust as neededStil l unable to swallow, unknown reason.per speech eval: no eating or drinkingMo nitor wts and labs.08/22 human resources department supervisor to assess if bolus feedings can be attempted for homefamily /pt needs g tube care/teach ing for ? dc homemonito r110/30 awaiting human resources department supervisor to calculate gtube feedings and start Asthenia 49659452 R53.1 Very deconditio armen, improving every week with therapyNee ds PT/OT for strengthen ing, balance, gait training, safety and function.C ontinue fall precaution s.Monitor for safety. Dysphagia 27338290 R13.1 9 Unknown etiology.C ontinue G-tube feeding as above.Cons ider ENT consult. Anemia 259447994 D64.89 Not currently anemic.juan carlos l order cbc and bmp prn, labs stableferr ous gluconate 324 mg qdMonitor labs Moderate protein-calorie malnutrition (weight for age 60-74 percent of standard) 025931691 E44.0 As above. Human immunodeficiency virus infection 93887545 B20 ContinueBi ktarvy (bictegrav ir, emtricitab ine & tenofovir alafenamid e) 50-200-25m g QDF/U with ID as planned. Essential hypertension 65254544 I10 BP now improving as nutritiona l status improves.1 conta mlodipine 5 mg qdMonitor BP and labs. Gastroesop hageal reflux disease without esophagitis 136013472 K21.9 no meds.Monit or Chronic pain 53553998 G8 9.29 headache resolvedCo ntinuegaba pentin 600 mg TID, no pain todaytrama dol 50 mg qd prnMonitor sxs. Asthma 121162298 J45.30 Asthma meds transcribe d incorrectl y on admission here.albut maddi/budes onide prn.Advair 230/21 mcg two puffs BIDMonitor resp. status Mixed anxi ety and depressive disorder 605707300 F41.8 Mood stable and ding wellrisper idone 3 mg qhsmirtaza pine 60 mg qhs,clonaz epam 1 mg qd.Monitor mood.Psych consult prn. Neck pain 38998444 M54.2 incidental neck pain, states slept on it wrongnsg giving tyl, tramadol and gabapentin reposition neckmonito r for relief [id number] Dilia Hutchinson [address] [phone] 09/07/2023 05:15:43 09/13/2023 10:39:11 Adult failure to thrive syndrome 238164680 R62.7 With marked wt. loss over past few months.Con tinueJevit y 1.2 tanya/ml at 67ml/hr. human resources department supervisor following and will adjust as neededStil l unable to swallow, unknown reason.Con braydenue [employer] interventi ons to hopefully enable him to eat again.Cait tor wts and labs.recei deborah education on gt feeds, SW working on VNA set up for [facility] GT site daily with NS and dry. apply 2x2 to sitemonito r Asthenia 04942097 R53.1 Very deconditio armen, improving every week with therapyNee ds PT/OT for strengthen ing, balance, gait training, safety and function.C ontinue fall precaution s.Monitor for safety. Dysphagia 67380750 R13.1 9 Unknown etiology.C ontinue G-tube feeding as above.Cons ider ENT consult. Anemia 899580896 D64.89 Not currently anemic.juan carlos l order cbc and bmp weekly l5ueaskae gluconate 324 mg qdMonitor labs Moderate protein-calorie malnutrition (weight for age 60-74 percent of standard) 864476659 E44.0 As above. Human immunodeficiency virus infection 35516833 B20 ContinueBi ktarvy (bictegrav ir, emtricitab ine & tenofovir alafenamid e) 50-200-25m g QDF/U with ID as planned. Essential hypertension 93427123 I10 BP now improving as nutritiona l status improves.1 10s-130s /60scontam lodipine 5 mg qdMonitor BP and labs. Gastroesop hageal reflux disease without esophagitis 328103826 K21.9 no meds.Monit or Chronic pain 24580603 G8 9.29 headache resolvedCo ntinuegaba pentin 600 mg TID, no pain todaytrama dol 50 mg qd prnMonitor sxs. Asthma 747004571 J45.30 Asthma meds transcribe d incorrectl y on admission here.albut maddi/budes onide prn.Advair 230/21 mcg two puffs BIDMonitor resp. status Mixed anxi ety and depressive disorder 644673127 F41.8 Mood stable and ding wellrisper idone 3 mg qhsmirtaza pine 60 mg qhs,clonaz epam 1 mg qd.Monitor mood.Psych consult prn. [id number] Maryjane Glover NP [address] [phone] 09/12/2023 18:08:08 09/14/2023 11:17:17 Adult failure to thrive syndrome 994374618 R62.7 With marked wt. loss over past [...] dry. apply 2x2 to sitemonito r Asthenia 14173694 R53.1 Very deconditio armen, improving every week with therapyNee ds PT/OT for strengthen ing, balance, gait training, safety and function.C ontinue fall precaution s.Monitor for safety. Dysphagia 50288929 R13.1 9 Unknown etiology.C ontinue G-tube bolus feeding as above.FEES test on Sundayneed s cxr to rule out pna from foods and drinks in room despite recommenda tionConsid er ENT consult. Moderate protein-calorie malnutrition (weight for age 60-74 percent of standard) 430237395 E44.0 As above. Human immunodeficiency virus infection 52944019 B20 ContinueBi ktarvy (bictegrav ir, emtricitab ine & tenofovir alafenamid e) 50-200-25m g QDF/U with ID as planned. Essential hypertension 09026021 I10 BP now improving as nutritiona l status improves.1 10s-130s /60scontam lodipine 5 mg qdMonitor BP and labs. Asthma 024827627 J45.30 no wheezing noted on exam, stablealbu terol/bude sonide prn.Advair 230/21 mcg two puffs BIDMonitor resp. status Mixed anxi ety and depressive disorder 469819992 F41.8 Mood stable and ding wellrisper idone 3 mg qhsmirtaza pine 60 mg qhs,clonaz epam 1 mg qd.Monitor mood.Psych consult prn. [id number] MAURO DUFFY NP [address] [phone] 09/18/2023 08:57:08 09/25/2023 10:49:09 Adult failure to thrive syndrome 150460504 R62.7 With marked wt. loss over past few months due to difficulty swallowing .G tube placed 07/30/23 at [facility].Contin ue osmolite 1.2 tanya/ml 410 cc qid bolus tube feedings upon d/c home.Seen by [employer]ER - now on puree diet with thin liquids - may continue at homeContin ue to monitor weights and intake at home Asthenia 93369434 R53.1 Improved, meeting rehab goals for d/c home today with support of services.C ontinue fall precaution s.Monitor for safety as outpt. Dysphagia 05568991 R13.1 9 Unknown etiology.S ee above.[facility] [facility]No w on pureed diet, thin liquidsMon itor intake, s/s aspiration as outpt. Moderate protein-calorie malnutrition (weight for age 60-74 percent of standard) 634563500 E44.0 As above. Human immunodeficiency virus infection 44727740 B20 ContinueBi ktarvy (bictegrav ir, emtricitab ine & tenofovir alafenamid e) 50-200-25m g QDF/U with ID as planned. Essential hypertension 39086515 I10 continue amlodipine 5 mg qdMonitor BP as outpt. Asthma 554971072 J45.30 no wheezing noted on exam, stablecont inue Advair 230/21 mcg two puffs BID and albuterol/ budesonide prn.Monito r resp. status as outpt. Mixed anxi ety and depressive disorder 104578142 F41.8 Mood stable and doing wellContin ue home medsrisper idone 3 mg qhsmirtaza pine 60 mg qhsclonaze david 1 mg qdMonitor mood, behaviors as outpt. Chronic pain 48734586 G8 9.29 continue gabapentin 600 mg tid, ultram 50 mg qd prnmonitor asoutpt. Anemia 687911086 D64.89 remains on daily FeMonitor CBC,s/s active bleeding Health Concerns Section Related Observation LastModified by Organization Detai ls LastModified Time None Recorded Concern Status LastModified by Organization Details LastModified Time None Recorded Advance Directives Directive Y: Payers Insurance Date Sequence Insurance Name Policy Number Policy Perry Covered Member ID Perry Member ID Guarantor Name 09/25/2023 1 [facility] - DOS ON OR AFTER 2022 - MEDICARE ADVANTAGE [place] (MEDICARE REPLACEMENT/ADV ANTAGE - PPO) Benjamin Fall [id number] Benjamin Fall Notes Date Note Type Note [...] other concerns. Note: He was admitted to [facility] ED for similar concerns [...] code signed 01/17/23 Maryjane Glover NP [address] [facility], [address], [place], [address], [facility] [employer] 08/22/2023 11:24:08 08/29/2023 text/html Patient seen for an 30 routine rounding visit. Past medical history significant for HIV, history of hep C, depression, asthma, history lung abscess 2020, fall, several overdoses noted in hx. dysphagia seen for difficulty swallowing ultimately diagnosed with failure to thrive and PEG tube placed. Benjamin was admitted to [facility] ED for difficulty swallowing [...] from hospital to rehab. While here at [facility]: Pt is 107.6 lbs and [...] disconnect his feedings without difficulty here. Awaiting human resources department supervisor to calculate bolus feedings and start them [...] code signed 01/17/23 Maryjane Glover, LADAN [address] [facility], [address], [place], [address], [facility] [employer] 08/29/2023 13:39:07 09/07/2023 text/html ROS as noted [...] other concerns. Note: He was admitted to [facility] ED for similar concerns [...] MOLST: Full code signed 01/17/23 Dilia SchwarzLucy [address], [address], [place], [address], [facility] [employer] 09/07/2023 13:21:25 09/12/2023 text/html ROS as noted [...] code signed 01/17/23 Maryjane Glover NP [address] [facility], [address], [place], [address], [employer] 09/12/2023 19:33:00 09/18/2023 text/html Benjamin is seen today for discharge. He is going home today with support of services. He is a 58 yo man admitted to [facility] 08/02/23 from [facility] for continued care and rehab after a hospitalization related to malnutrition and FTT.He presented to [facility] 07/27 reporting throat pain and the inability to swallow.Swallowing issues problematic prior to this presentation, had EGD with Dr. Dodson 07/17, results c/w mild candidiasis normal stomach and duodenum. He was also seen by HOGS[employer] ROLLER, diet changed to NND1 and nectar thick liquid. Due to ongoing swallowing issues at home, he returned to [facility] ER.A g-tube was placed on 07/30, cause of dysphagia unclear. Kept NPO, and sent here for rehab. While here, Benjamin has done well.Worked with PT/OT, meeting goals for d/c home.Also worked with HOGS[employer] ROLLER and human resources department supervisor - now tolerating puree diet with thin [...] also, possibly inadvertently). MAURO DUFFY NP [address] [facility], [address], [place], [address], [employer] 09/18/2023 09:47:21
--- OUTSIDE RECORDS SUMMARY | 2025-07-20 09:45 | XMS_ITS | Clinical Summary ---
Author Organization [address] [facility] Address [address] [place] [address] Phone Care Team Providers Care Cook Chili Name Role Phone Physician, Pcp Unknown Primary [...] 10:15 AM EDT Office Visit Orthopedic Surgery [facility] [address] [phone] Kb Benitez DPM Pain in toes of both feet (Primary Dx); Metatarsalgia of right foot; Arthritis of both feet; Contracture, left foot; Dermatophytosis, nail 05/19/2025 9:30 AM EDT Office Visit Orthopedic Surgery [facility] [address] [phone] Kb Benitez DPWilmer Pain in toes of both feet (Primary Dx); Metatarsalgia of right foot; Arthritis of both feet; Dermatophytosis, nail; Contracture, left foot 05/12/2025 Telephone Orthopedic [facility] [address] [phone] EliKb eason DPM 05/05/2025 9:45 AM EDT Consult Orthopedic Surgery - [place] [address] [phone] Kb Benitez DPM Pain in toes of both feet (Primary Dx); Arthritis of both feet; Metatarsalgia of right foot; Onychogryphosis; Dermatophytosis, nail from Last 3 Months Surgical History Surgery Date Site/Laterality Comments EYE SURGERY Left PROCEDURE: HISTORICAL EYE SURGERY OTHER SURGICAL HISTORY PROCEDURE: ---- OTHER ----; COMMENT: hemorrhoids Medical History Medical History Date Comments Seizures ([facility], [facility] V28) 06/29/2016 DX:Seizures ([facility]); COMMENT: F/u with neuro at [place] [facility] [place] HIV (human immunodeficiency virus infection) ([facility] V24, [facility] V28) 06/29/2016 DX:HIV (human im munodeficiency virus infection) ([facility]); COMMENT: HIV dx in 1991, f/u Dr. Street Depression 06/29/2016 DX:Depression Anxiety 06/29/2016 DX:Anxiety; COMM ENT: F/u [facility] Chronic back pain 06/29/2016 DX:Chronic [...] AM EST Office Visit Orthopedic Surgery - [place] [address] [phone] Kb Benitez DPM [address] [address] Health Maintenance Due Date Last Done Comments [...] Phone Billing Address Personal/Family Self 1965 [address] [place] [address] MEDICAID - [place] [employer] MEDICARE Member Subscriber Plan / Payer (Ef fective 2017-Present) Name:VICKIE GROVER Relation to Subscriber:Self Name:Vickie Fall Payer ID:[id number] Group ID:[id number] Type:Not on file Address: [address] [place] [address] Care Teams Cook Chili Relationship Specialty Start Date End Date Physician, Pcp Unknown PCP - General 03/10/25
--- OUTSIDE RECORDS SUMMARY | 2025-07-20 09:45 | XMS_ITS | Encounter Summary ---
Author Organization [employer] Address [address] [place] [address] Care Team Providers Care Lever Tender Name Role Phone Physician, Pcp Unknown Primary Care Provider Bina vailable Encounter Details Date Type Department Care Team (Late Contact Info) Description 03/10/2025 Lab Requisition [facility] - Main Lab [address] [facility] [place] [address] MD [address] [place] [address] Unspecified abnormal cytological findings in specimens from [...] Upcoming Encounters Date Type Department Care Team ([facility] Contact Info) Description 09/15/2025 10:00 AM EST Office Visit Orthopedic Surgery - [place] [address] [phone] Kb Benitez DPM [address] [address] documented as of this encounter Procedures Procedure [...] AM EDT) Final Diagnosis Specimen sent to [facility] for Anal cytology with HPV CoTest. Their interpretation is as follows: Anal, Rectum (ThinPrep): Satisfactory for Evaluation. Transformation zone components absent. Negative for Intraepithelial Lesion or Malignancy. Disclaimer This test has been modified from the production artist's instructions. Its performance characteristics were determined by [facility] in a manner consistent with CLIA requirements. This test has not been cleared or approved by the U.S. Food and Drug Administration Report signed electronically by: Qi Lehman M.D. on 16 Mar 2025 at 13:55 at [facility], [address] [facility] (CLIA [id number]) HPV Anal Detect/Genotyping, PCR: High Risk HPV [...] of a [facility] Non-BUSINESS ANALYTICS DIRECTOR Cytology case; this result should be interpreted within the context of the Non-BUSINESS ANALYTICS DIRECTOR cytology report. Resulted 12 Mar 2025 at 17:00 by [facility], [address] [facility] (CLIA [id number]) Full report attached. 03/17/2025 2:31 PM EDT [facility] Disclaimer Unless otherwise specified, all tissue is 10% NB formalin fixed and paraffin embedded. Technical cytopathology services provided by [facility], at [address] [place] [address] (CLIA # [id number]/Angel Villalobos MD, Questioned Documents Examiner.) 03/17/2025 2:31 PM EDT [facility] Brushing/Spatula Anal structure / Unknown 03/09/2025 03/10/2025 9:22 AM EDT us [address] MD LAB CYTOLOGY ORDERABLES F inal Result [facility] [address] [place] [address], documented in this encounter Visit Diagnoses Diagnosis Unspecified abnormal cytological findings in specimens from anus documented in this encounter Care Teams Lever Tender Relationship Specialty Start Date End Date Physician, Pcp Unknown PCP - General 03/10/25 documented as of this encounter
--- OUTSIDE RECORDS SUMMARY | 2025-07-20 09:45 | XMS_ITS | Data Portability ---
Author Organization LYNN WHITE MD [facility], Main Office Address [address] [place] [id number] Assessment No assessment recorded. Plan of Treatment Reminders Order Date Submit Date Provider Last Modified By Organization Details Last Modified Time Details Appointments B20 FOLLOW UP 2024 11:00A Wilmer Levin MD Not available Not available Not available Lab HPV DNA, high-ris k, anal [address], [address] [place] [address], [id number], 03/09/2025 16:00:58 pap, LB, anal [address], [address] [place] [address], [address], 03/09/2025 16:01:16 chlamydi a + gonorrhe a DNA panel, unspecif ied specimen [address], [address] [place] [address], [address], 03/09/2025 16:00:03 culture, throat [address], [address] [place] [address], [address], 03/09/2025 16:02:43 Referral None recorded . Procedures None recorded . Surgeries None recorded . Imaging None recorded . Medication Orders clotrima zole 10 mg klaudia 2024 025 [id number], [address] [place], [address], 04/13/2025 20:54:02 fluconaz ole 100 mg tablet 2024 025 [facility], [address] [place] [address], [address], 04/13/2025 20:54:03 Biktarvy 50 mg-200 mg-25 mg tablet 2024 025 [facility] [address] [place] [address], [address], 04/14/2025 17:57:16 clotrima zole 10 mg klaudia 2024 025 [facility] [address] [place] [address], [address], 03/09/2025 10:06:11 fluconaz ole 100 mg tablet 2024 025 [facility], [address] [place] [address], [address], 03/09/2025 10:06:10 Biktarvy 50 mg-200 mg-25 mg tablet 2024 025 [facility] [address] [place] [address], [address], 03/09/2025 13:04:37 clotrima zole 10 mg klaudia 2024 025 [facility], [address] [place] [address], [address], 12/30/2024 16:32:25 Biktarvy 50 mg-200 mg-25 mg tablet 2024 025 [facility], [address] [place] [address], [address], 12/30/2024 16:32:25 clotrima zole 10 mg klaudia 2024 025 [facility], [address] [place], [address], 11/25/2024 13:20:54 Benadryl 25 mg capsule 2024 025 [facility] [address] [place], [address], 11/25/2024 13:20:55 Biktarvy 50 mg-200 mg-25 mg tablet 2024 025 [facility], [address] [place], [address], 11/25/2024 13:20:54 clotrima zole 10 mg klaudia 2024 025 [facility] [address] [place], [address], 10/21/2024 14:29:45 Biktarvy 50 mg-200 mg-25 mg tablet 2024 025 [facility], [address] [place], [address], 10/21/2024 14:30:45 Patient TargetsNo targets recorded. Patient Instructions Encounter Date Encounter Id Patient Instructions Last Modified By Organization Details Last Modified Time 10/21/2024 [id number] Clotrimazole Oral Lozenge (CLOTRIMAZOLE LOZENGE - MUCOUS [...] atori es - Labor atory - [address] [facility], [place], [place] [address] Not Available [facility] [address] [place], [address], 03/10/2025 08:50:56 03/09/20 25 03/09/2025 CHLAM YDIA TRACH OMATI S AND NEISS ERIA GONOR RHOEA E MOLEC ULAR STUDY neisseria gonorrhoeae PCR Negati ve negati ve Not Available [facility] [address] [place] [address], [address], 03/10/2025 08:50:56 03/09/20 25 03/09/2025 CHLAM YDIA TRACH OMATI S AND NEISS ERIA GONOR RHOEA E MOLEC ULAR STUDY chlamydia trachomatis PCR Negati ve negati ve Not Available [facility] [address] [place] [address], [address], 03/10/2025 08:50:56 03/09/20 25 03/09/2025 CULTU RE MISCE LLANE OUS .note See Note Origi nal Order ing Provi carlito: DELGADO TAYLORO CHRISTOPHER [facility] - Labor atory - [address] [place] [address], [place]arelywillian annealessandro [place], [place] [address] Not Available [facility] [address] [place] [address], [address], 03/10/2025 11:21:36 03/09/20 25 03/09/2025 CULTU RE MISCE LLANE OUS miscellaneou s culture YEAST abnormal Yeast Not Available [facility] [address] [place] [address], [address], 03/10/2025 11:21:36 03/09/20 25 03/09/2025 CULTU RE MISCE LLANE OUS .note See Note Origi nal Order ing Provi carlito: DELGADO JORDON T MARTO CHRISTOPHER [facility] - Labor atory - [address] [place], [place] [address]willian [place], [place] [address] Not Available [facility] [address] [place] [address], [address], 03/10/2025 11:26:38 03/09/20 25 03/09/2025 CULTU RE MISCE LLANE OUS miscellaneou s culture YEAST abnormal Yeast Not Available [facility] [address] [place], [address], 03/10/2025 11:26:38 03/09/20 25 03/09/2025 CULTU RE MISCE LLANE OUS .note See Note Origi nal Order ing Provi carlito: DELGADO Rogel MARTO CHRISTOPHER [facility] - Labor atory - [address] [facility], [place], [facility] [place] [place] [address] Not Available [facility] [address] [place], [address], 03/10/2025 13:02:10 03/09/20 25 03/09/2025 CULTU RE MISCE LLANE OUS miscellaneou s culture YEAST abnormal Yeast Not Available [facility] [address] [place] [address], [address], 03/10/2025 13:02:10 03/09/20 25 03/09/2025 CULTU RE FUNGU S, OTHER THAN SKIN HAIR OR NAILS .note See Note Origi nal Order ing Provi carlito: DELGADO TAYLORO CHRISTOPHER [facility] - Labor atory - [address] [facility], [place], [facility] [place] [place] [address] Not Available [facility] [address] [place] [address], [address], 03/16/2025 14:09:09 03/09/20 25 03/09/2025 CULTU RE FUNGU S, OTHER THAN SKIN HAIR OR NAILS culture, fungus YEAST abnormal Yeast Not Available [facility] [address] [place] [address], [address], 03/16/2025 14:09:09 03/09/20 25 03/09/2025 THINP REP CYTOL OGY WITH HPV, ANAL .note See Note Origi nal Order ing Provi carlito: DELGADO Rogel MARTO CHRISTOPHER [facility] - Labor atory - [address] [facility], [place], [place] [address] Not Available [facility] [address] [place] [address], [address], 03/17/2025 14:23:11 03/09/20 25 03/09/2025 THINP REP CYTOL OGY WITH HPV, ANAL scan result See Scanne d Result Not Available [facility] [address] [facility], [place], [address], 03/17/2025 14:23:11 03/09/20 25 03/09/2025 NON-G YNECO LOGIC CYTOL OGY .note See Note Origi nal Order ing Provi carlito: DELGADO IA T MARTO CHRISTOPHER [facility] - Labor atory - [address] [facility], [place]in gfiel d, [place] [address] Not Available [facility] [address] [facility], [place], [address], 03/17/2025 14:32:10 03/09/20 25 03/09/2025 NON-G YNECO LOGIC CYTOL OGY final diagnosis Specim en sent to [facility] joey for Anal cytolo gy with [...] jurgen cteri stics were deter mined by [facility] c in a toribio r consi stent with CLIA requi remen ts. This test has not been clear ed or appro deborah by the U.S. Food and Drug Admin istra tion Repor t tamra d elect terry correia by: Qi judge M.D. on 16 Mar 2025 at 13:55 at [facility], [address], [place] (CLIA [id number] ) HPV Anal Detec t/Gen otypi ng, [...] in the diane xt of a [facility] Non-G YN Cytol ogy case; this resul t shoul d be inter prete d withi n the diane xt of the Non-G YN cytol ogy repor t. Resul lucho 12 Mar 2025 at 17:00 by [facility] Labor atori es, [address], [place] (CLIA [id number] ) Full repor t attac hed. Elect terry barboza d by Sintia wu MD on 025 at 2:31 PM Not Available [facility] [address] [place] [address], [address], 03/17/2025 14:32:10 03/09/20 25 03/09/2025 NON-G YNECO LOGIC CYTOL OGY disclaimer Unless otherw ise specif ied, all tissue is 10% NB formal in fixed and paraff in embedd ed. Techn ical cytop athol ogy servi surekha provi ded by Miguelina woods [facility], at [address], [place] [address] (CLIA # [id number] /Joe orourke MD, Medic al Direc tor.) Not Available [facility] [address] [place], [address], 03/17/2025 14:32:10 03/09/20 25 03/09/2025 CULTU RE FUNGU S, OTHER THAN SKIN HAIR OR NAILS .note See Note Origi nal Order ing Provi carlito: DELGADO SCHAEFFER CHRISTOPHER [facility] - Labor atory - [address] [facility], [place], [facility] [place] [address] Not Available [facility] [address] [place], [address], 03/18/2025 08:10:44 03/09/2003/09/2025 CULTU RE FUNGU S, OTHER THAN SKIN HAIR OR NAILS culture, fungus CANDID A ALBICA NS abnormal Julianna da albic ans Edite d resul t: Previ ously repor lucho as Yeast on 025 at 1407 EDT. Not Available [facility] [address] [place] [address], [address], 03/18/2025 08:10:44 06/19/2004/23/2025 imagi ng/di agnos tic resul t No observ ation record ed. [email or web address] Not Available 2024 16:37:26 Result Notes None recorded. Problems Name Problem SNOMED Code Status Onset Date Resolution Date Notes Provider Name and Address Organization Details Recorded Time Human immunodef iciency virus infection 45477242 Active 1991 Human immunodefi ciency virus [HIV] disease; snomeddesc ription: Human immunodefi ciency virus infection; Report Immunity to Registry: Yes; Human immunodefi ciency virus infection; snomeddesc ription: Human immunodefi ciency virus infection; Report Immunity to Registry: Yes; Not Available [facility] 4 06:58:53 Anxiety 86119984 Active 1996 Anxiety; snomeddesc ription: Anxiety; Report Immunity to Registry: Yes; Not Available [facility] 4 06:58:54 Insomnia 986538761 Active 1996 Insomnia; Report Immunity to Registry: Yes; Not Available [facility] 4 06:58:57 Anxiety state 336145506 Active 1996 Anxiety state, unspecifie d; snomeddesc ription: Anxiety; Report Immunity to Registry: Yes; Not Available [facility] 4 06:58:57 Depressiv e disorder 08617303 Active 1996 Depressive disorder, not elsewhere classified ; snomeddesc ription: Depressive disorder; Report Immunity to Registry: Yes; Depressiv e disorder; snomeddesc ription: Depressive disorder; Report Immunity to Registry: Yes; Not Available [facility] 4 06:58:58 Arthritis 1741934 Active 1998 Arthritis; snomeddesc ription: Arthritis; Report Immunity to Registry: Yes; Notes: Osteoatrth ris multiple; Not Available [facility] 4 06:58:55 Arthropat hy 874331254 Active 1998 Arthropath y, unspecifie d, site unspecifie d; snomeddesc ription: Arthritis; Report Immunity to Registry: Yes; Notes: Osteoatrth ris multiple; Not Available [facility] 4 06:58:56 Sleep apnea 83762134 Active 1999 Sleep apnea; snomeddesc ription: Sleep apnea; Report Immunity to Registry: Yes; Unspecifi ed sleep apnea; snomeddesc ription: Sleep apnea; Report Immunity to Registry: Yes; Not Available [facility] 4 06:58:55 Seizure 03562752 Active 2000 Seizure; snomeddesc ription: Seizure; Report [...] Not Available [facility] 4 06:58:58 Kidney stone 76821105 Active 2001 Calculus of kidney; snomeddesc ription: Kidney stone; Report Immunity to Registry: Yes; Kidney stone; snomeddesc ription: Kidney stone; Report Immunity to Registry: Yes; Not Available [facility] 4 06:58:54 History of calculus of kidney 640023994 Active 2001 History of calculus of kidney; snomeddesc ription: History of calculus of kidney; Report Immunity to Registry: Yes; Not Available [facility] 4 06:58:54 History of urinary stone 179845518 Active 2001 Personal history of urinary calculi; snomeddesc ription: History of calculus of kidney; Report Immunity to Registry: Yes; Not Available [facility] 4 06:58:56 Asthma 763200177 Active 2006 Asthma; snomeddesc ription: Asthma; Report Immunity to Registry: Yes; Asthma; Report Immunity to Registry: Yes; ReasonDate : 10/13/2019 ; ; Start Date : 10/13/2019 Asthma; snomeddesc ription: Asthma; Report Immunity to Registry: Yes; Not Available [facility] 4 06:58:53 Diarrhea 38138751 Active 2006 Diarrhea; snomeddesc ription: Diarrhea; Report Immunity to Registry: Yes; Diarrhea, unspecifie d; snomeddesc ription: Diarrhea; Report Immunity to Registry: Yes; Not Available [facility] 4 06:58:53 Substance abuse 86346286 Active 2006 Substance abuse; snomeddesc ription: Substance abuse; Report Immunity to Registry: Yes; Notes: opiate/suad jolene/benzo ; Not Available [facility] 4 06:58:53 Fibromyos itis 40063614 Active 2006 Myalgia and myositis, unspecifie d; snomeddesc ription: Fibromyalg ia; Report Immunity to Registry: Yes; Notes: Chronic pain multiple/c hronic back pain; Not Available [facility] 4 06:58:53 Type B viral hepatitis 90754840 Active 2006 Type B viral hepatitis; snomeddesc ription: Type B viral hepatitis; Report Immunity to Registry: Yes; Notes: core ab pos; s ag neg; s ab neg HBV vL nondetecte d 2016; 2017; Not Available [facility] 4 06:58:54 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 68290848 Active 2006 Other psychoacti ve substance abuse, uncomplica lucho; snomeddesc ription: Substance abuse; Report Immunity to Registry: Yes; Notes: opiate/suad jolene/benzo ; Not Available [facility] 4 06:58:55 Viral hepatitis B without hepatic coma 770185547 Active 2006 Unspecifie d viral hepatitis B without hepatic coma; snomeddesc ription: Type B viral hepatitis; Report Immunity to Registry: Yes; Notes: core ab pos; s ag neg; s ab neg HBV vL nondetecte d 2016; 2017; Not Available [facility] 4 06:58:55 Fibromyal mika 072484469 Active 2006 Fibromyalg ia; snomeddesc ription: Fibromyalg ia; Report Immunity to Registry: Yes; Notes: Chronic pain multiple/c hronic back pain; Not Available [facility] 4 06:58:56 Chronic hepatitis C 693577449 Active 2006 Chronic hepatitis C without mention of hepatic coma; snomeddesc ription: Chronic hepatitis C; Report Immunity to Registry: Yes; Notes: F0 2011; CC IL28; g1a EOT 06/21/ s/p 24 weeks tx Ribapak 1200mg po [...] neg 2015;2017; 12/2021 F2 ; Not Available [facility] 4 06:58:57 Steatotic liver disease 213702973 Active 2006 Steatosis of liver; snomeddesc ription: Steatosis of liver; Report Immunity to Registry: Yes; Notes: u/s 2021; Fatty (change of) liver, not elsewhere classified ; snomeddesc ription: Steatosis of liver; Report Immunity to Registry: Yes; Notes: u/s 2021; Not Available [facility] 4 06:58:53 Headache 05819528 Active 2008 Headache; snomeddesc ription: Headache; Report Immunity to Registry: Yes; Notes: migraine; Headache; snomeddesc ription: Headache; Report Immunity to Registry: Yes; Notes: migraine; Not Available [facility] 4 06:58:56 Herpesvir us infection 89213963 Active 2009 Herpesvira l infection, unspecifie d; snomeddesc ription: Herpes simplex; Report Immunity to Registry: Yes; Notes: HSV 1 pos serology; HSV 2 neg serology; Not Available [facility] 4 06:58:53 Herpes simplex 41867267 Active 2009 Herpes simplex; snomeddesc ription: Herpes simplex; Report Immunity to Registry: Yes; Notes: HSV 1 pos serology; HSV 2 neg serology; Not Available [facility] 4 06:58:54 Seasonal allergic rhinitis 936484945 Active 2012 Other seasonal allergic rhinitis; snomeddesc ription: Seasonal allergy; Report Immunity to Registry: Yes; Notes: hx nasal congestion ; Not Available [facility] 4 06:58:54 Blood chemistry outside reference range 353395547 Active 2012 Other specified abnormal findings of blood chemistry; snomeddesc ription: Decreased testostero ne level; Report Immunity to Registry: Yes; Notes: hypogoandi sm; Not Available [facility] 4 06:58:55 Testoster one level below reference range 321075931 Active 2012 Decreased testostero ne level; snomeddesc ription: Decreased testostero ne level; Report Immunity to Registry: Yes; Notes: hypogoandi sm; Not Available [facility] 4 06:58:57 Seasonal allergy 420953542 Active 2012 Seasonal allergy; snomeddesc ription: Seasonal allergy; Report Immunity to Registry: Yes; Notes: hx nasal congestion ; Not Available [facility] 4 06:58:58 Loss of appetite 40187428 Active 2012 Anorexia; snomeddesc ription: Loss of appetite; Report Immunity to Registry: Yes; Loss of appetite; snomeddesc ription: Loss of appetite; Report Immunity to Registry: Yes; Not Available [facility] 4 06:58:58 Male hypogonad ism 75241911 Active 2012 Male hypogonadi sm; snomeddesc ription: Male hypogonadi sm; Report Immunity to Registry: Yes; Not Available [facility] 4 06:58:53 Testicula r hypofunct ion 656451861 Active 2012 Other testicular hypofuncti on; snomeddesc ription: Male hypogonadi sm; Report Immunity to Registry: Yes; Not Available [facility] 4 06:58:54 Hyperplas ia of prostate 216659581 Active 2014 Hyperplasi a of prostate, unspecifie d, without urinary obstructio n and other lower urinary symptoms (LUTS); snomeddesc ription: Hyperplasi a of prostate; Report Immunity to Registry: Yes; Hyperplas ia of prostate; snomeddesc ription: Hyperplasi a of prostate; Report Immunity to Registry: Yes; Not Available [facility] 4 06:58:54 Hypertens marj disorder 96217477 Active 2017 Hypertensi ve disorder; snomeddesc ription: Hypertensi ve disorder; Report Immunity to Registry: Yes; Not Available [facility] 4 06:58:56 Essential hypertens ion 63431469 Active 2017 Essential (primary) hypertensi on; snomeddesc ription: Hypertensi ve disorder; Report Immunity to Registry: Yes; Not Available [facility] 4 06:58:57 Lyme disease 06090887 Active 2017 Lyme disease; Report Immunity to Registry: Yes; Notes: tx cefuroxime x14 d (hx all Doxy); Not Available [facility] 4 06:58:56 Onychomyc osis due to dermatoph yte 043049503 Active 2017 Tinea unguium; snomeddesc ription: Onychomyco sis; Report Immunity to Registry: Yes; Notes: feet digits; Not Available [facility] 4 06:58:55 Onychomyc osis 120806860 Active 2017 Onychomyco sis; snomeddesc ription: Onychomyco sis; Report Immunity to Registry: Yes; Notes: feet digits; Not Available [facility] 4 06:58:57 Problem Notes None recorded. Medical Equipment None Reported. Allergies Allergen ID Allergen Name Allergen Category Reaction Reaction Severity Criticality Documentation Date Start Date Code Code System Note Provider Name and Address Organization Details Recorded Time 1345 Product containin g penicilli n (product) medicatio n Not available Not available [facility]25 14503 9060 SNOMED Cheryl Levin MD [address] [place] [address], [place], [address] [place] [address] - CHERYL LEVIN MD [facility] 5 12:13:34 714 Reglan medicatio n Not available Not available Not available 10/31/20232012 9230 RxNorm Comme nt: adver se_ev ent_t ype: 19341 8002; ; Not Available [facility] 4 06:50:47 715 Motrin medicatio n Not available Not available Not available 10/31/20232012 94649 8 RxNorm Comme nt: adver se_ev ent_t ype: 77969 8002; ; Not Available [facility] 4 06:50:47 716 doxycycli ne Not available Not available Not available Not available 10/31/20232017 3640 RxNorm Comme nt: adver se_ev ent_t ype: 53655 8002; ; Not Available [facility] [...] SKIN 1 TIME A DAY AT BEDTIME active Not Available Not Available No t Available acetamino phen 325 mg tablet TOME DOS TABLETAS POR V A ORAL CADA SEIS HORAS CUANDO SEA NECESARI O PARA EL DOLOR-NV LD POR 10 D active Not Available [...] ccal polysacc haride PPV23; SU_FULL_ NAME: Cheryl Martsusan scales; Not Available [...] Available Liquid Nutrition oral 0 Quantity : 51553; Duration : 30; 0 refill(s ) 09/30 [...] l; Not Available Not Available Not Available dorzolami [...] bid; VACCINE_ IND: no; SU_FULL_ NAME: Cheryl sclaes; Not Available Not Available Not Available cyclobenz [...] Not Available Not Available Not Available Flulaval 7597-1924 45 mcg (15 mcg x 3)/0.5 mL [...] Not Available Not Available Not Available Afluria 1834-5170 45 mcg (15 mcg x 3)/0.5 mL [...] Pneumoco ccal conjugat e PCV20, polysacc haride [id number] conjugat e, adjuvant , PF; Not Available Not Available Not Available Vitals Date Recorded Heart rate Body temperature Body weight Systolic And Diastolic Provider Name and Address Organization Details Last Updated DateTime 10/21/2024 98 /min 98.2 [degF] 52012.26 g 118/97 mm[Hg] Lexis PENDLETON 10/21/2024 12:04:23 Date Recorded Body height Heart rate Respiratory rate Body mass index (BMI) Body weight Systolic And Diastolic Provider Name and Address Organization Details Last Updated DateTime 162.56 cm 81 /min 20 /min 24.9 kg/m2 19988.8 9 g 136/89 mm[Hg] Cheryl Levin MD [address] [place] [address] marcie, [place], [address], LYNN LEVIN MD [facility] 5 15:01:34 Date Recorded Heart rate Body mass index (BMI) Body weight Respiratory rate Systolic And Diastolic Provider Name and Address Organization Details Last Updated DateTime 12/30/2024 92 /min 26.1 kg/m2 69879.04 g 16 /min 108/83 mm[Hg] Cheryl Levin MD [address] [place], [address], LYNN LEVIN MD [facility] 5 16:33:39 Date Recorded Body height Provider Name an d Address Organization Details Last Updated DateTime 12/30/2024 162.56 cm Jany Mook LEVIN MD [facility] 12/30/2024 15:08:38 Date Recorded Body height Heart rate Respiratory rate Body temperature Body mass index (BMI) Body weight Systolic And Diastolic Provider Name and Address Organization Details Last Updated DateTime 162.56 cm 103 /min 18 /min 98.4 [degF] 25.1 kg/m2 89721.4 9 g 110/80 mm[Hg] Aleksandra LEVIN MD [facility] 11:09:16 Date Recorded Heart rate Respiratory rate Body temperature Body mass index (BMI) Body weight Systolic And Diastolic Provider Name and Address Organization Details Last Updated DateTime 89 /min 20 /min 98.1 [degF] 24.5 kg/m2 11511.7 1 g 118/83 mm[Hg] Lexis LEVIN MD [facility] 15:46:27 Date Recorded Body height Provider Name an d Address Organization Details Last Updated DateTime 04/13/2025 162.56 cm Freddy LEVIN MD [facility] 04/13/2025 11:36:06 Social History None recorded. Functional [...] Time Meningococcal MCV4O 9 completed Not Available [facility] 10/31/2023 06:54:49 zoster live 9 [...] 365 Cheryl Levin MD Main Office [address] [place] [address] 05/25/2023 09:48:40 06/27/2023 09:16:16 Human immunodeficiency virus infection 97700233 B20 HIV. Continue Biktarvy 1 tab po [...] sex. plan of care reviewed 1509 Cheryl Levin MD Main Office [address] [place] [address] 08/24/2023 09:33:00 08/24/2023 10:46:09 Human immunodeficiency virus infection 53374076 B20 HIV. Continue Biktarvy 1 tab po [...] /Tivicay.s afe sex.labs Septemberlan of care reviewed [id number] Cheryl Levin MD Main Office [address] [place] [address] 11/12/2023 11:34:42 11/16/2023 15:00:47 Human immunodeficiency virus infection 61997832 B20 HIV.Contin ue Biktarvy 1 tab po qd.U=Upt aware of PreP availabili ty.condom use.plan of care reviewed Adult [facility] th examination 921564603 Z00.00 95565 Cheryl Levin MD Main Office [address] [place] [phone] 11/21/2023 10:59:43 11/23/2023 14:55:21 15930 Cheryl Levin MD Main Office [address] [place] [address] 01/14/2024 09:27:39 01/16/2024 13:51:41 31653 Cheryl Levin MD Main Office [address] [place] [phone] 01/16/2024 10:24:39 01/16/2024 11:50:10 Human immunodeficiency virus infection 65466571 B20 HIV.Contin ue Biktarvy 1 tab po qd.U=Upt aware of PreP availabili ty.condom use.labs todayplan of care reviewed Candidiasis of mouth 797 99991 B37.0 nystatin 5cc po qid x 14 days. swish and spit.call with any side effects.ba cterial/fu ngal swab obtained. 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 07681 Cheryl Levin MD Main Office [address] [place] [phone] 6 02/14/2024 12:00:04 02/14/2024 12:24:19 Human immunodeficiency virus infection 58135476 B20 HIV.Contin ue Biktarvy 1 tab po qd.U=Upt aware of PreP availabili ty.DoxyPEP reviewedco ndom use.labs todayplan of care reviewed Methicilli n resistant Staphylococcus aureus infection 732538083 A49.02 swab culture 01/2024 Candidiasi s of esophagus 83349767 B37.81 sandy glabratafl uconazole 100mg po qd x 14 dayscall with any side effects. Weight loss 56112066 R63 .4 contributi ng factor sandy, MRSA, HIV among othermight benefit from Serostim.w ill review with himG tube 35267 Cheryl Levin MD Main Office [address] [place] [address] 02/21/2024 11:08:05 02/21/2024 12:09:56 Human immunodeficiency virus infection 88445355 B20 HIV.Contin ue Biktarvy 1 tab po qd.complia nce reviewedU= Upt aware of PreP availabili ty.DoxyPEP reviewedco ndom use.labs todayplan of care reviewed Candidiasi s of esophagus 32433569 B37.81 sandy glabratato complete fluconazol e 100mg po bid x 14 days: (10mg/ml) 10ml by G tube bidcall with any side effects. Methicilli n resistant Staphylococcus aureus infection 742591866 A49.02 swab culture urr ently on Bactrim oral suspension (200mg- 40mg/5ml) since 02/15-20ml q 12 hrs G tube x 10 days Cachexia a ssociated with AIDS 271059967 B20 R64 weight loss. frail. progressin g.contribu ting factor sandy, MRSA, HIV among other. G tubeSerost im 6mg sq qd will be prescribed with the goal of helping w weight gain, increase muscle mass gain, and increase enduranceh e has visiting nurse who could assist with daily injections . 52167 Cheryl Levin MD Main Office [address] [place] [address] 02/25/2024 10:24:53 02/25/2024 11:09:27 Human immunodeficiency virus infection 81720516 B20 HIV.Contin ue Biktarvy 1 tab po qd.complia nce reviewedU= Ucondom use.labs todayplan of care reviewed Candidiasi s of esophagus .81 sandy glabratawi ll continue fluconazol e 200 mg po qd x 14 days: (10mg/ml) 10ml by G tube QD;will on next appointmen t for further tx va suppressio n tx.call with any side effects. Cachexia a ssociated with AIDS 359852508 B20 R64 weight loss. frail. progressin g.approved Serostim 6mg sq qd; awaiting delivery to the office. will be prescribed with the goal of helping w weight gain, increase muscle mass gain, and increase enduranceh e has visiting nurse who could assist with daily injections .ensure tidmegace 625 mg qd. Methicilli n resistant Staphylococcus aureus infection 388819441 A49.02 swab culture 01/2024will complete 10 days of Bactrim oral suspension (200mg- 40mg/5ml) since 02/15-20ml q 12 hrs G tube on 02/27/24 36045 Cheryl Levin MD Main Office [address] [place] [address] 03/14/2024 10:24:00 03/14/2024 10:29:25 Cachexia associated with AIDS 239011520 R64 B20 gained 2 pounds. probably improved sandy esophagiti s 2nd to inhaled steroids.S Tart Serostim 6mg s/c qd abdomen. first dose administer ed today. Tolerated well; goalis to increase weight, endurance and muscle massHe will have DIELECTRIC TESTER and nurse help with daily injections .potential side effects reviewed.t o call with any concernshe will warehouse order picker Megace today, and start it as well(G tube) qd to increase apetitte Human immunodeficiency virus infection 12130937 B20 HIV.Contin ue Biktarvy 1 tab po qd.complia nce reviewed Candidiasi s of esophagus 7.81 sandy glabratawi ll continue 2 more weeks of fluconazol e 200 mg po qd x 14 days: (10mg/ml) 10ml by G tube QD;might benefit from qw suppressio n tx.call with any side effects. 14627 Cheryl Levin MD Main Office [address] [place] [address] 04/18/2024 09:52:00 04/18/2024 11:19:01 Cachexia associated with AIDS 214579576 R64 B20 124 lbs. gained weightcont inue Serostim 6mg s/c qd abdomen. goalis to increase weight, endurance and muscle masscontin ue Megace G tube qdCNA and nurse helping with compliance and tx.potenti al side effects reviewed.t o call with any concerns Human immunodeficiency virus infection 29996987 B20 HIV.Contin ue Biktarvy 1 tab po qd.padmini hoffman reviewedla bs today Candidiasi s of esophagus 49010414 B37.81 sandy glabratawi ll continue fluconazol e 200 (10ml) mg G tube qw for suppressio n tx.call with any side effects. Aspiration pneumonia 422 347930 J69.0 get discharge summaryon antibiotic ;eat standing or sitting; [place] not sleeping/[place] [address] Cheryl Levin MD Main Office [address] [place] [address] 05/20/2024 10:17:53 05/20/2024 12:44:49 Cachexia associated with AIDS 330207704 R64 B20 continue Serostim 6mg s/c qd abdomen. goal is to increase weight, endurance and muscle masscontin ue Megace G tube qd 5cc qdCNA and nurse helping with compliance and tx.potenti al side effects reviewed.t o call with any concerns Human immunodeficiency virus infection 18987556 B20 HIV.Contin ue Biktarvy 1 tab po qd.padmini hoffman reviewedla bs today Candidiasi s of esophagus 90997879 B37.81 sandy glabrataho ld fluconazol e for nowSTART 1 tab po bid x 21 says for esophageal sandy glabrata.c all with any side effects. 30547 Cheryl Levin MD Main Office [address] [place] [address] 06/18/2024 10:10:09 06/18/2024 11:12:33 Cachexia associated with AIDS 698564308 R64 B20 continue Serostim 6mg s/c qd abdomen. goal is to increase weight, endurance and muscle massCNA and nurse helping with compliance and tx.megace on holdpotent ial side effects reviewed.t o call with any concerns Human immunodeficiency virus infection 71567084 B20 HIV.Contin ue Biktarvy 1 tab po qd.padmini hoffman reviewedla bs today Inflammato ry disease of liver 162490427 K75.9 Suspect 2nd to concomitan t medication s. ongoingdo not re-start fluconazol e nor megacenega tive infectious and non-infect ious workupto call or ER if jaundice, abd pain, n/v/d marce huertas History of calculus of kidney 928413569 Z87.442 u/s 05/[address] scan 02/2024hydr ation Aspiration pneumonia 422 282548 J69.0 s/p aspiration on CT AngioNPO per instructio n given to him in hospital; nutrition by G tubes/p (ceftriaxo ne,Azithro ,Flagyl while in Hospital;d ischarged on azithro and cefpodoxim e x 3 days which he completed. leg elevationa void sedating meds as much as possible Deep venou s thrombosis of lower extremity 421995850 I82.409 left lower extremity doppler showed DVT of gastrocnem ius vein;on tx w w Eliquis bid . Pulmonary embolism [address] Angio was positive for Acute lobar PEs/p heparin; ongoing Eliquis bidmed list reviewed.n o drug use for years. not on maintenanc e tx.denies current ETOH use. 05672 Cheryl Levin MD Main Office [address] [place] [address] 07/15/2024 15:10:10 07/15/2024 15:45:30 Cachexia associated with AIDS 965216473 R64 B20 continue Serostim 6mg s/c qd abdomen. goal is to increase weight, endurance and muscle masspotent ial side effects reviewed.t o call with any concerns Human immunodeficiency virus infection 46759687 B20 HIV.Contin ue Biktarvy 1 tab po qd.padmini hoffman reviewedla bs Candidiasi s of esophagus 73566747 B37.81 on clotrimazo le. swish and spit qd Medication monitoring 39 8125006 Z51.81 51723 Cheryl Levin MD Main Office [address] [place] [address] 10/21/2024 12:22:54 10/21/2024 16:48:51 Cachexia associated with AIDS 334890595 R64 B20 improvedco ntinue Serostim 6mg s/c qd abdomen. goal is to increase weight, endurance and muscle masspotent ial side effects reviewed.m ay start decreasing dose in 1-2 months if further weight gainon Boost protein shakesto call with any concerns Human immunodeficiency virus infection 58313269 B20 HIV.Contin ue Biktarvy 1 tab po qd.complia nce reviewedla bs Candidiasi s of esophagus 48068172 B37.81 on clotrimazo le. swish and spit qd/BID PRN 33347 Cheryl Levin MD Main Office [address] [place] [address], [place] [address] 11/25/2024 11:48:55 11/25/2024 14:20:54 Cachexia associated with AIDS 281643579 R64 B20 improvedco ntinue Serostim 6mg s/c [...] with any concerns Human immunodeficiency virus infection 36660457 B20 HIV.Contin ue Biktarvy 1 tab po qd.complia nce reviewedla bs Candidiasi s of esophagus 52114757 B37.81 off/on; recurrento n clotrimazo le. swish and spit qd/BID PRN for suppressio n Insomnia 422714808 G47.0 0 benadryl capsules requested by patient forinsomni a and itchiness as needed.cor rect use reviewed. 55173 Cheryl Levin MD Main Office [address] [place] [address] 12/30/2024 15:04:38 12/31/2024 09:52:40 Cachexia associated with AIDS 465609553 R64 B20 improvedco ntinue Serostim 6mg s/c [...] with any concerns Human immunodeficiency virus infection 14658931 B20 HIV.Contin ue Biktarvy 1 tab po qd.complia nce reviewedla bs Candidiasi s of esophagus 84268110 B37.81 off/on; recurrento n clotrimazo le. swish and spit /BID/TID PRN for suppressio n 96385 Cheryl Levin MD Main Office [address] [place] [address] 03/09/2025 09:16:22 03/09/2025 10:12:30 Cachexia associated with AIDS 994187228 R64 B20 stable/imp roved.cont inue Serostim 6mg s/c qd abdomen. goal is to increase weight, endurance and muscle masspotent ial side effects reviewed.o n Boost protein shakescont inue megace; plan to stop in the next 2-3 monthsto call with any concerns Human immunodeficiency virus infection 72622825 B20 HIV.Contin ue Biktarvy 1 tab po qd.complia nce reviewedla bs Candidiasi s of esophagus 75340190 B37.81 off/on; recurrento n clotrimazo le. swish and spit /BID/TID PRN for suppressio nSTART Fluconazol e 100mg po qd x 21 days: esophageal sandy; then continue clotrimazo le for suppressio noral swab for sandy/ba cteria obtained Abnormal a nal Papanicolaou smear 396489029 R85.619 882009 Anal PAP sample obtained/p reformed: no abnormalit yGC/chlamy chi rectal done 21492 Cheryl Levin MD Main Office [address] [place] [address] 04/13/2025 10:41:03 04/13/2025 12:37:30 Cachexia associated with AIDS 985763673 R64 B20 stable/imp roved. has gained weight.con tinue Serostim 6mg s/c qd abdomen. goal is to increase weight, endurance and muscle masspotent ial side effects reviewed.o n Boost protein shakeson megace PRNto call with any concerns Human immunodeficiency virus infection 99549682 B20 HIV.Contin ue Biktarvy 1 tab po qd.complia nce reviewedla bshe is aware might start IV med q 6 months and IM cabotegrav ir QOM Candidiasi s of esophagus 62842234 B37.81 off/on; recurrento n clotrimazo le. swish [...] Member ID Perry Member ID Guarantor Name 07/20/[address] [facility] - DOS ON OR AFTER 2022 - MEDICARE ADVANTAGE [place] & [place] (MEDICARE REPLACEMENT/AD VANTAGE - PPO) Benjamin Fall [id number] [facility] Juan David Notes Date Note Type [...] notify site start date and confirm medication. ARCHITECTURAL PRACTICE MANAGER in room with his consent. Cheryl Levin MD [address] [place] [address], [phone], LYNN LEVIN MD [facility] 10/21/2024 14:34:28 11/25/2024 text/html ROS as noted in the [facility] HIVOn Biktarvy 1 tab po qd.reports daily [...] cyst removal in recent weeks. outpatient/day procedure. ARCHITECTURAL PRACTICE MANAGER in room with his consent. 07/2025 HIV VL nondetceted; ALt/AST wnl; eGFR>60; ZB4=478 Cheryl Levin MD [address] [place] [address], [phone], LYNN LEVIN MD [facility] 11/26/2024 15:09:42 12/30/2024 text/html ROS as noted in the [facility] HIVOn Biktarvy 1 tab po qd.reports daily compliance. denies missing dose.thrush. gets on/off and using clotrimazole to treat/suppress.gaining weight: 120lbs ---145lbs --152 lbsno aspirationgetting serostim daily for cachexia,no side effects.might get G tube removed in February 2025.no hospitalizations since he was last seenmed list reviewed. ARCHITECTURAL PRACTICE MANAGER on vacation in [facility]. came in today with a a friendVL nondetceted;07/2025 HIV VL nondetceted; ALt/AST wnl; eGFR>60; BK8=992 Cheryl Levin MD [address] [place] [address], [phone], LYNN LEVIN MD [facility] 12/30/2024 16:39:33 03/09/2025 text/html ROS as noted in the [facility] HIVOn Biktarvy 1 tab po qd.reports daily compliance. denies missing dose.thrush ongoing. has flareup today.gets on/off and using clotrimazole to treat/suppress.getting serostim daily for cachexia, helpingno side effects.might get G tube removed in February 2025.med list reviewed. will get anal pap VL nondetceted;02/07/2024 HIV Vl=24; AST =28 ALT 109; eGFR=90;07/2025 HIV VL nondetceted; ALt/AST wnl; eGFR>60; QG0=257 Cheryl Levin MD [address] [place] [address], [phone], [facility] - CHERYL LEVIN MD [facility] 03/09/2025 13:13:07 04/13/2025 text/html ROS as noted in the [facility] HIVOn Biktarvy 1 tab po qd.Willing to get switched to infusion/cabotegravir injection if he is a candidate. prefers no POhas been choking on certain foods like bread; last episode last week where aquatics manager had help him when he choked.he feels well.thrush ongoing 03/09/25 sandy. he did take the 21 days of fluconazole. fluconazole prn for active tx;gets on/off and using clotrimazole to treat/suppress.weight has been stable. on serostim and protein boost shakes. has been on megace PRN.getting serostim daily for cachexia,no side effects. not hospitalized. no pneumonia.aquatics manager struggling with nurses that go to his home. he missess Biktarvy on weekends when nurses do not show up for visits; his meds are locked and they are accessed and administered by the nurses.pt will request list of meds that pt is currently taking.med list reviewed.EKG ok.7 2024 anal PAP neg for abnormalities; no [id number] VL=24; eGFR>60;02/07/2024 HIV Vl=24; AST =28 ALT 109; eGFR=90;07/2025 HIV VL nondetceted; ALt/AST wnl; eGFR>60; ZO6=068 Cheryl Levin MD [address] [place] [address], [phone], LYNN - CHERYL LEVIN MD [facility] 04/15/2025 11:00:52
--- OUTSIDE RECORDS SUMMARY | 2025-07-20 09:45 | XMS_ITS | Encounter Summary ---
Author Organization [employer] Address [address] [place] [address] Care Team Providers Care Consumer Product Advisor Name Role Phone Physician, Pcp Unknown Primary Care Provider Bina vailable Encounter Details Date Type Department Care Team (Late Contact Info) Description 03/09/2025 Lab Requisition [facility] - Main Lab [address] [facility] [place] [address] MD [address] [place] [address] Candidal esophagitis ([facility] V24, [facility] V28) Social History Tobacco Use [...] ([facility] Contact Info) Description 09/15/2025 10:00 AM EST Office Visit Orthopedic Surgery - [place] [address] [facility] [address] [place] [phone] Kb Benitez DPM [address] [address] documented as of this encounter Procedures Procedure Name Priority Date/Time Associated Diagnosis Comments CULTURE FUNGUS, OTHER THAN SKIN HAIR OR NAILS Routine 03/09/2025 12:00 AM EDT Candidal esophagitis ([facility] V24, [facility] V28) CULTURE MISCELLANEOUS Routine 03/09/2025 12:00 AM EDT Candidal esophagitis ([facility] V24, [facility] V28) CHLAMYDIA TRACHOMATIS AND NEISSERIA GONORRHOEAE PCR Routine 03/09/2025 12:00 AM EDT Candidal esophagitis ([facility] V24, [facility] V28) documented in this encounter [...] ORDERABLES Final Result [facility] [address] [place] [address], [place] [phone] * (ABNORMAL) Culture miscellaneous (03/09/2025 12:00 AM [...] ORDERABLES Final Result [facility] [address] [place] [address], * Chlamydia trachomatis and Neisseria gonorrhoeae molecular [...] ORDERABLES Final Result [facility] [address] [place], [place] [address] [phone] documented in this encounter Visit Diagnoses Diagnosis Candidal esophagitis ([facility] V24, [facility] V28) Candidiasis of the esophagus documented in this encounter Care Teams Consumer Product Advisor Relationship Specialty Start Date End Date Physician, Pcp Unknown PCP - General 03/10/25 documented as of this encounter
--- OUTSIDE RECORDS SUMMARY | 2025-07-20 09:45 | XMS_ITS | Clinical Summary ---
Author Organization [facility] Address [address] [address] Phone Care Team Providers Care Manager Etl Name Role Phone Gaetano Gibbons MD Primary Care Provider [phone] Social History Tobacco Use Types Packs/Day Years [...] Medical Devices Not on file Care Teams Manager Etl Relationship Specialty Start Date End Date Gaetano Gibbons MD [email or web address] [place] [email or web address] PCP - General Family Medicine 07/02/23 Additional Source Comments The information contained in this document represents components of the legal health record. It is not the complete legal health record.[facility]
--- OUTSIDE RECORDS SUMMARY | 2025-07-20 09:45 | XMS_ITS | Clinical Summary ---
Author Organization [facility] Address [address] [place] [address] Care Team Providers Care Graphic Design Manager Name Role Phone Zora Arce PA-C Primary Care Provider [phone] Source Comments PLEASE NOTE, if this patient [...] nasal sprayIndications:As thma, intermittent, uncomplicated Place [address] [place] into the nostril(s) as needed for congestion. [...] features 01/27/2015 Overview (01/27/2015): Has therapist at [facility] HIV (human immunodeficiency virus infection) Chronic [...] Plan of Treatment Not on file [place] Subscriber Plan / Payer ( fective 2015-Present) Name:Benjamin Fall Relation to Subscriber:Self Name:Benjamin Fall Payer ID:[id number] Group ID:Not on file Type:Medicaid Address: [address] DENTAL Care Teams Graphic Design Manager Relationship Specialty Start Date End Date Zora Arce PA-C [address] [place] [address] PCP - General 11/05/18
== END 2025-07-20 09:40 | disposition home or self-care (01) ==
LOC: HO.HPS 09:05
PROVIDERS: PCP Student in an Organized Health Care Education/Training Program; Visit Provider Nurse Practitioner Family
DX: I27.82 Chronic pulmonary embolism (principal); J45.909 Unspecified asthma, uncomplicated; R13.10 Dysphagia, unspecified; Z21 Asymptomatic human immunodeficiency virus [HIV] infection status
CPT/HCPCS: 99214; G2211

== ENCOUNTER 2025-07-20 09:04 | Outpatient (REF) | payer OTHER, SELFPAY ==
--- NOTE | ~2025-07-20 | XR_ITS ---
EXAMINATION: XR CHEST CLINICAL INFORMATION: R05.9 - Cough, unspecified COMPARISON: May 18, 2025. TECHNIQUE: PA and lateral views FINDINGS: Pulmonary reticular pattern. Sutures, left lower hemithorax. Vascular clips in the left pulmonary hilum. Volume loss left lung. No gross consolidation, pleural effusion or pneumothorax. Cardiomediastinal silhouette size is normal. Multilevel spondylosis. Biconcave shape deformities of the vertebral bodies and the thoracic spine. Osteopenia versus osteoporosis. S-shaped curvature of the thoracolumbar spine. XR/XR chest 2V IMPRESSION: Chronic interstitial lung disease and post surgical changes left hemithorax/left pulmonary hilum. Old compression deformities in the vertebral bodies thoracic spine. Electronically signed by: Tyrone Dias MD 07/20/2025 11:19 AM [facility]OR[facility]
== END 2025-07-20 09:05 | disposition home or self-care (01) ==
LOC: HO.XRAY 09:04
PROVIDERS: PCP Student in an Organized Health Care Education/Training Program; Visit Provider Nurse Practitioner Family
DX: J45.909 Unspecified asthma, uncomplicated (principal); I27.82 Chronic pulmonary embolism; G47.34 Idiopathic sleep related nonobstructive alveolar hypoventilation; R13.10 Dysphagia, unspecified; Z21 Asymptomatic human immunodeficiency virus [HIV] infection status; Z87.01 Personal history of pneumonia (recurrent); Z87.891 Personal history of nicotine dependence
CPT/HCPCS: 71046; 99212

== ENCOUNTER → 2025-07-20 09:48 | Outpatient (BNV) | payer OTHER, SELFPAY | PROVIDERS: PCP Student in an Organized Health Care Education/Training Program; Visit Provider Radiology Diagnostic Radiology | DX: J84.9 Interstitial pulmonary disease, unspecified (principal) | CPT/HCPCS: 71046 ==

== ENCOUNTER 2025-07-22 11:25 | Outpatient (REF) | payer OTHER, SELFPAY ==
--- NOTE | ~2025-07-22 | US_ITS ---
EXAMINATION: US ABDOMEN COMPLETE CLINICAL INFORMATION: Elevated liver enzymes.. COMPARISON: June 06, 2024. Correlated to CT abdomen pelvis dated February 15, 2024. TECHNIQUE: Real-time ultrasound of the abdomen using grayscale technique. FINDINGS: PANCREAS: No peripancreatic fluid collections. ABDOMINAL AORTA: The proximal, mid, and distal segments are normal in caliber. INFERIOR VENA CAVA: Visualized portions are normal. LIVER: Liver measures 20 cm. Coarse echotexture. No nodular surface. No solid or cystic lesion. No intrahepatic biliary ductal dilatation. GALLBLADDER: Fluid-filled nondistended. No pericholecystic fluid collection or gallbladder wall thickening. COMMON BILE DUCT: 8 mm. RIGHT KIDNEY: 10 cm. Normal echotexture. Normal renal cortical thickness. No hydronephrosis. No solid or cystic lesion. 4 mm hyperechoic foci in the upper and lower poles of the pelvicalyceal system. . LEFT KIDNEY: 11 cm. Normal echotexture. Normal renal cortical thickness. No hydronephrosis. No solid or cystic lesion. 5 mm hyperechoic structure at the corticomedullary junction of the pelvicalyceal system.. SPLEEN: 6 cm. No solid or cystic lesion.. FREE FLUID: None. US/US abdomen complete IMPRESSION: Hepatomegaly and likely steatosis. No cholelithiasis. Common bile duct measures 8 mm without gross intraluminal choledocholithiasis. Nonobstructing nephrolithiasis, bilaterally. No ascites. Electronically signed by: Tyrone Dias MD 07/22/2025 12:09 PM [facility]
--- OUTSIDE RECORDS SUMMARY | 2025-07-22 14:12 | XMS_ITS | Encounter Summary ---
Author Organization [employer] Address [address] [place] [address] Care Team Providers Care Real Estate Leasing Agent Name Role Phone Physician, Pcp Unknown Primary Care Provider Bina vailable Encounter Details Date Type Department Care Team (Late Contact Info) Description 03/09/2025 Lab Requisition [facility] - Main Lab [address] [facility] [place] [address] MD [address] [place] [address] Candidal esophagitis ([facility] V24, [facility] V28) Social History Tobacco Use Types [...] Date Type Department Care Team ([facility] Contact Info) Description 09/15/2025 10:00 AM EST Office Visit Orthopedic Surgery - [place] 250 175 [facility] [address] [place] [phone] Kb Benitez DPM [address] [address] documented as of this encounter Procedures Procedure Name Priority Date/Time Associated Diagnosis Comments CULTURE FUNGUS, OTHER THAN SKIN HAIR OR NAILS Routine 03/09/2025 12:00 AM EDT Candidal esophagitis ([facility] V24, [facility] V28) CULTURE MISCELLANEOUS Routine 03/09/2025 12:00 AM EDT Candidal esophagitis ([facility] V24, [facility] V28) CHLAMYDIA TRACHOMATIS AND NEISSERIA GONORRHOEAE PCR Routine 03/09/2025 12:00 AM EDT Candidal esophagitis ([facility] V24, [facility] V28) documented in this encounter Results [...] ORDERABLES Final Result [facility] [address] [place] [address], [place] [phone] * (ABNORMAL) Culture miscellaneous (03/09/2025 12:00 AM [...] ORDERABLES Final Result [facility] [address] [place] [address], * Chlamydia trachomatis and Neisseria gonorrhoeae molecular [...] ORDERABLES Final Result [facility] [address] [place], [place] [address] [phone] documented in this encounter Visit Diagnoses Diagnosis Candidal esophagitis ([facility] V24, [facility] V28) Candidiasis of the esophagus documented in this encounter Care Teams Real Estate Leasing Agent Relationship Specialty Start Date End Date Physician, Pcp Unknown PCP - General 03/10/25 documented as of this encounter
--- OUTSIDE RECORDS SUMMARY | 2025-07-22 14:12 | XMS_ITS | Data Portability ---
Author Organization [facility] Address [address] [place] [address] Care Team Providers Care Dry Man Name Role Phone HIM CCA OTHER Unavailable OTHER Assessment No assessment recorded. Plan of Treatment Reminders Order Date Submit Date Provider Last Modified By Organization Details Last Modified Time Details Appointments None recorded. Lab BMP, serum or plasma 2024 025 [facility], [address] [place] [address], [place], [phone] 5 21:20:54 Referral None recorded. Procedures None recorded. Surgeries None recorded. Imaging None recorded. Medication Orders Probiotic (B. coagulans) 1 billion cell chewable tablet 2024 025 [facility]/Pharmacy #[id number], [address] [place], [address], 5 05:01:12 clindamycin 75 mg/5 mL oral solution 2024 025 [facility]/Pharmacy #[id number], [address] [place], [address], 5 05:01:20 Patient TargetsNo targets recorded. Patient [...] Name and Address Organization Details Recorded Time 84639 Product containin g penicilli n (product) medicatio n rash Not available low 04/10/2025 97340 0717 GRICELDA HOLLIDAY MD [address] [place] [address],[address], [place], [address], [facility] [employer] 5 19:13:54 7354 acetamino phen medicatio n Not available Not available Not available 07/08/2024 161 RxNorm Not Available [facility] - production 4 03:36:50 7355 ibuprofen medicatio n Not available Not available Not available 07/08/2024 5640 RxNorm Not Available [facility] - production 4 03:36:50 7356 levofloxa sam medicatio n Not available Not available Not available 07/08/2024 77494 RxNorm Not Available [facility] - production 4 [...] No t Available clotrimazol e 10 mg klaudai TAKE 1 TABLET BY MOUTH 3 TIMES [...] Updated DateTime 5 19 /min 167.64 cm 94191.6 56 g 95 % 95 % 98 [...] ICD10 Code Diagnosis IMO Codes Diagnosis Note [id number] DERRELL HOLLIDAY MD Main - [facility] [address] [place] [phone] 03/06/2024 16:50:44 03/07/2024 17:38:50 Lethargy [id number] R53.83 Evaluation in the field was performed by my quarantine officer colleague. As noted above, I provided real-time [...] He is afebrile. Per discussion with the quarantine officer, the patient looked lethargic, walked with an [...] n. The patient was transferre d to [facility] for further evaluation and treatment. His PCP was informed of the transfer to the ED. Primary care, consider__ _ Dispositio n:[facility] [id number] DERRELL HOLLIDAY MD [facility] ED Medical [facility] [address] [place] [address] 04/10/2025 19:08:12 04/10/2025 22:37:12 Cellulitis of periorbital region of left eye [id number] 60740 L03.213 [id number] Evaluation in the field was performed by my quarantine officer colleague, as noted above, I provided real-time [...] Perry Member ID Guarantor Name 04/10/2025 1 [facility] - DOS ON OR AFTER 2022 - DUAL ELIGIBLE - [employer]CI OPTIONS AND ONE CARE (MEDICARE REPLACEMENT/ADV ANTAGE - HMO) [facility] Juan David [id number] [facility] Juan David Notes Date Note Type [...] .................... .................... .................... .................... .................... .................... . Senior Project Leader/Team Lead Note From Francisco Ley: Dispatched to above address for headache sore throat. On arrival patient met TN8 at the door. Initially patient denied calling for medical help or having any symptoms. TN8 confirmed patient name and address, after this [...] mentation but cannot be sure. 911 called. [facility] responded. Verbal report given to [facility] Senior Project Leader/Team Lead. [facility] quarantine officer took over patient care. Me8 clear. EOR. .................... .................... .................... .................... .................... .................... .................... . Disposition: Shahzad DERRELL HOLLIDAY MD [address] [facility], [place], [address], [employer] 03/06/2024 18:02:19 04/10/2025 text/html ROS as noted in the HPI HPI: Member's RN DIABETES EDUCATOR, Ashtyn, phoned in without member present requesting [...] needed to process visit -Crystal Christianson RN Senior Project Leader/Team Lead Organization Information for [facility] Legal Name: [facility] Transportation Address: [address] [place] [address], [place] M[place] [address], Flower Grower: Fabio Melendez MD CLIA No.: [id number] Senior Project Leader/Team Lead POC Test Results from [facility] (19:25:03) pH: 7.479pH units pCO2: 30.0mmHg pO2: 61.0mmHg Na: 141mmol/L K: 3.7mmol/L iCa: 1.10mmol/L Cl: 110mmol/L TCO2: 21.1mEq/L Hct: 41% Hb: 13.9g/dL Glu: 135mg/dL Lac: 1.99mmol/L Cr: 0.96mg/dL BUN: 7mg/dL Ammol/L HCO3: 22.3mmol/L Attachments uploaded as part of this test result can be found under Documents section. .................... .................... .................... .................... .................... .................... .................... . Senior Project Leader/Team Lead Note From [facility]: Pt chief complaint today of pink eye in his left eye. Pt notes that all signs and symptoms have been occurring for approx 2 days prior to [facility] arrival at scene. Pt state that [...] 15. POC bloodwork notes no significant irregularities. [facility] Derrell Holliday consulted. Pt is informed of findings. Prescription for Clindamycin sent to pharmacy. Pt is also inform to use warm compresses on the area every 6-8 hours as needed. Pt also inform to call his pcp at earliest convenience for follow up as needed. Education provided on red flag S&S and pt informed to call emergency services if any present. [facility] Lab Orders: BMP, serum or plasma: Performed .................... .................... .................... .................... .................... .................... .................... . [facility] Consulted: Derrell Holliday .................... .................... .................... .................... .................... .................... .................... . Disposition: Shahzad HOLLIDAY MD [address] [facility], [place], [address], KEERTHI BLOCK 04/10/2025 20:15:00
--- OUTSIDE RECORDS SUMMARY | 2025-07-22 14:12 | XMS_ITS | Encounter Summary ---
Author Organization [employer] Address [address] [place] [address] Care Team Providers Care Ups Driver Name Role Phone Physician, Pcp Unknown Primary Care Provider Bina vailable Encounter Details Date Type Department Care Team (Late Contact Info) Description 03/10/2025 Lab Requisition [facility] - Main Lab [address] [facility] [place] [address] MD [address] [place] [address] Unspecified abnormal cytological findings in specimens from [...] Upcoming Encounters Date Type Department Care Team ([facility] Contact Info) Description 09/15/2025 10:00 AM EST Office Visit Orthopedic Surgery - [place] [address] [phone] Kb Benitez DPM [address] [address] documented as of this encounter Procedures Procedure [...] EDT) Final Diagnosis Specimen sent to [facility] for Anal cytology with HPV CoTest. Their interpretation is as follows: Anal, Rectum (ThinPrep): Satisfactory for Evaluation. Transformation zone components absent. Negative for Intraepithelial Lesion or Malignancy. Disclaimer This test has been modified from the resident service coordinator's instructions. Its performance characteristics were determined by [facility] in a manner consistent with CLIA requirements. This test has not been cleared or approved by the U.S. Food and Drug Administration Report signed electronically by: Qi Lehman M.D. on 16 Mar 2025 at 13:55 at [facility], [address] [facility] (CLIA [id number]) HPV Anal Detect/Genotyping, PCR: High Risk HPV [...] was ordered in the context of a [facility] Non-[employer] Cytology case; this result should be interpreted within the context of the Non-[employer] cytology report. Resulted 12 Mar 2025 at 17:00 by [facility], [address] [facility] (CLIA [id number]) Full report attached. 03/17/2025 2:31 PM EDT [facility] Disclaimer Unless otherwise specified, all tissue is 10% NB formalin fixed and paraffin embedded. Technical cytopathology services provided by [facility], at [address] [place] [address] (CLIA # [id number]/Angel Villalobos MD, Tugboat Captain.) 03/17/2025 2:31 PM EDT [facility] Brushing/Spatula Anal structure / Unknown 03/09/2025 03/10/2025 9:22 AM EDT us [address] MD LAB CYTOLOGY ORDERABLES F inal Result [facility] [address] [place] [address], documented in this encounter Visit Diagnoses Diagnosis Unspecified abnormal cytological findings in specimens from anus documented in this encounter Care Teams Ups Driver Relationship Specialty Start Date End Date Physician, Pcp Unknown PCP - General 03/10/25 documented as of this encounter
--- OUTSIDE RECORDS SUMMARY | 2025-07-22 14:12 | XMS_ITS | Data Portability ---
Author Organization [facility] [employer] [facility], Main Office Address [address] [place] [address] Care Team Providers Care Acid Recovery Operator Name Role Phone BRENDAN HOLLINGSWORTH - 2ND FLOOR OTHER Assessment Encounter Date Assessment Date Assessment LastModified by Organization Details LastModified Time 09/18/2023 09/18/2023 45 minutes spent on coordination of discharge. [email or web address] Not available 09/18/2023 09:47:05 Plan of Treatment [...] and Address Organization Details Recorded Time Asthenia 86530055 Active 2022 MAURO DUFFY NP [address], [address], [place], [address], [facility] [employer] 3 12:08:07 Moderate protein-calori e malnutrition (weight for age 60-74 percent of standard) 128894091 Active 2022 MAURO DUFFY NP [address], [address], [place], [address], [facility] [employer] 3 12:08:23 Pneumonia 810596203 Active 2022 MAURO DUFFY NP [address], [address], [place], [address], [facility] [employer] 3 12:08:31 Pleural effusion 62633834 Active 2022 MAURO DUFFY NP [address], [address], [place], [address], [facility] [employer] [facility] 3 12:08:59 Hypertensive disorder 82875991 Active 2022 MAURO DUFFY NP [address], [address], [place], [address], [facility] [employer] [facility] 3 12:09:07 Human immunodeficien cy virus infection 23141561 Active 2022 MAURO DUFFY NP [address], [address], [place], [address], [facility] [employer] [facility] 3 12:09:12 Viral hepatitis C 69226230 Active 2022 MAURO DUFFY NP [address], [address], [place], [address], [facility] [employer] [facility] 3 12:09:28 Mixed anxiety and depressive disorder 865760806 Active 2022 MAURO DUFFY NP [address], [address], [place], [address], [facility] [employer] 3 12:09:40 Asthma 164779737 Active 2022 MAURO DUFFY NP [address], [address], [place], [address], [employer] [facility] 3 12:09:56 Acute dermatitis 17718170 Active 2022 MAURO DUFFY NP [address], [address], [place], [address], [facility] [employer] [facility] 3 12:14:27 Migraine 56219208 Active 2022 MAURO DUFFY NP [address], [address], [place], [address], [facility] [employer] [facility] 3 12:25:08 Non-traumatic rhabdomyolysis 726010469 Active 2022 Leilani Romeo MD [address], [address], [place], [address], [employer] 3 10:08:19 Moderate persistent asthma 690654808 Active 2022 Leilani Romeo MD [address], [address], [place], [address], [employer] [facility] 3 10:18:10 Insomnia 353826625 Active 2022 Leilani Romeo MD [address], [address], [place], [address], [employer] [facility] 3 10:19:09 Harmful pattern of use of multiple substances 920260605 Active 2022 Leilani Romeo MD [address], [address], [place], [address], [employer] [facility] 3 10:19:11 Adult failure to thrive syndrome 220522626 Active 2022 Maryjane Glover NP [address], [address], [place], [address], [employer] [facility] 3 13:27:15 Anemia 584879647 Active 2022 Maryjane Glover NP [address], [address], [place], [address], [employer] [facility] 3 13:30:43 Dysphagia 47374259 Active 2022 Leilani Romeo MD [address], [place], [address], [employer] [facility] 3 20:51:38 Gastroesophage al reflux disease without esophagitis 604274238 Active 2022 Leilani Romeo MD [address], [place], [address], [employer] [facility] 3 20:54:24 Chronic pain 84838582 Active 2022 Leilani Romeo MD [address], [address], [place], [address], [employer] [facility] 3 20:55:56 Problem Notes None recorded. Medical Equipment None Reported. Allergies Allergen ID Allergen Name Allergen Category Reaction Reaction Severity Criticality Documentation Date Start Date Code Code System Note Provider Name and Address Organization Details Recorded Time 96808 codeine medicatio n Not available Not available Not available 01/17/2023 0810 RxNorm rash MAURO DUFFY NP [address], [address], [place], [address], [facility] 3 12:06:48 57890 Levaquin medicatio n Not available Not available Not available 01/17/2023 10171 2 RxNorm rash MAURO DUFFY NP [address], [address], [place], [address], [facility] 3 12:06:58 30674 Reglan medicatio n Not available Not available Not available 01/17/2023 9230 RxNorm rash MAURO DUFFY NP [address], [address], [place], [address], [facility] 3 12:07:11 04011 ibuprofen medicatio n Not available Not available Not available 01/17/2023 5640 RxNorm reflu x MAURO DUFFY NP [address], [address], [place], [address], [facility] 3 12:07:28 47650 Product containin g penicilli n (product) medicatio n Not available Not available Not available 01/17/2023 96716 8001 SNOMED rash MAURO DUFFY NP [address], [address], [place], [address], [facility] 3 12:07:45 30066 Ultram medicatio n Not available Not available Not available 01/17/2023 51572 6 RxNorm N/V MAURO DUFFY NP [address], [address], [place], [address], [facility] 3 12:07:56 49310 acetamino phen medicatio n other Not available unabletoasse 08/03/2023 161 RxNorm unkno wn Maryjane Glover NP [address], [address], [place], [address], [facility] 3 13:00:59 74529 [employer] environme nt,medica tion other Not available unabletoasse 08/03/2023 69004 6 RxNorm unkno wn Maryjane Glover NP [address], [address], [place], [address], [facility] 3 13:01:38 Medications Name Sig Start [...] Details Last Updated DateTime 4 167.64 cm 36781.5 4 g 88 /min 18 /min 97.6 [degF] 96 % 96 % 133/85 mm[Hg] Maryjane Glover NP [address] [facility] [address], [place], [address], [employer] [facility] 4 19:10:48 Date Recorded Body height Heart rate Respiratory rate Body temperature Oxygen saturation Oxygen saturation in Arterial blood by Pulse oximetry Systolic And Diastolic Provider Name and Address Organization Details Last Updated DateTime 4 167.64 cm 84 /min 18 /min 97.5 [degF] 98 % 98 % 133/85 mm[Hg] MAURO DUFFY NP [address], [address], [place], [address], [employer] [facility] 4 08:57:54 Date Recorded Body height Body weight Body mass index (BMI) Heart rate Respiratory rate Body temperature Oxygen saturation Oxygen saturation in Arterial blood by Pulse oximetry Systolic And Diastolic Provider Name and Address Organization Details Last Updated DateTime 3 167.64 cm 88086.5 4 g 17.4 kg/m2 86 /min 18 /min 97.6 [degF] 91 % 91 % 115/68 mm[Hg] Maryjane Glover NP [address], [address], [place], [address], [facility] 3 11:08:33 Date Recorded Body height Body weight Heart rate Respiratory rate Body temperature Oxygen saturation Oxygen saturation in Arterial blood by Pulse oximetry Systolic And Diastolic Provider Name and Address Organization Details Last Updated DateTime 3 167.64 cm 78122.5 4 g 72 /min 18 /min 97.1 [degF] 96 % 96 % 115/68 mm[Hg] Maryjane Glover NP [address], [address], [place], [address], [employer] 3 13:10:32 Date Recorded Body height Body mass index (BMI) Body weight Heart rate Systolic And Diastolic Provider Name and Address Organization Details Last Updated DateTime 09/07/2023 167.64 cm 17.3 kg/m2 88016.38 g 74 /min 133/85 mm[Hg] Dilia Mikki Hutchinson [address], [address], [place], [address] , [employer] 09/07/2023 13:13:45 Social History Question Answer Notes LastModified by [employer] Details LastModified Time Tobacco Smoking Status Never Smoker MAURO DUFFY NP [address], [address], [place], [address], [employer] 01/17/2023 11:35:26 Do You Have An Advance Directive? Yes [email or web address] Information not available 01/17/2023 What Is Your Code Status? Full Code [email or web address] Information not available 01/17/2023 Where Do You Live? Apartment With Elevator, Family Near By, Helpful [email or web address] Information not available 01/17/2023 What Was The Date Of Your Most Recent Tobacco Screening? 08/03/2023 Information not available 08/03/2023 Has Tobacco Cessation Counseling Been Provided? No [email or web address] Information not available 01/17/2023 Sex: Unknown Functional Status Question Answer Note LastModified by Organizat ion Details LastModified Time Do you use any illicit or recreational drugs? No noted past use cocaine Information not available 08/03/2023 Do you or have you ever used any other forms of tobacco or nicotine? No [email or web address] Information not available 01/17/2023 What is your level of alcohol consumption? None [email or web address] Information not available 01/17/2023 Mental Status None recorded. Family History Relationship Description Onset Age of this Age Resolved Age Notes LastModified by Organization Details LastModified Time Mother Malignant neoplasm of lung [email or web address] Not available 2022 11:34:21 Medical History No medical history recorded. Immunizations Vaccine Type Date Status Note Provider Nam e and Address Organization Details Recorded Time COVID-19, mRNA, LNP-S, bivalent, PF, 50 mcg/0.5 mL or 25mcg/0.25 mL dose 2 completed Asia juarez [facility] 09/11/2023 13:44:56 COVID-19, mRNA, LNP-S, bivalent, PF, 50 mcg/0.5 mL or 25mcg/0.25 mL dose 3 completed Asia juarez [facility] 09/11/2023 13:45:39 Pneumococcal conjugate PCV20, polysaccharide FPV923 conjugate, adjuvant, PF 3 completed Asia juarez [facility] 09/11/2023 13:46:16 Influenza, adjuvanted, quadrivalent, PF 3 completed Asia juarez [facility] 09/11/2023 13:46:36 Influenza, adjuvanted, quadrivalent, PF 2 completed Asiayahaira [facility] 10/24/2023 13:13:32 Past Encounters Encounter ID Performer Location Encounter Start Date Encounter Closed Date Diagnosis/Indication Diagnosis SNOMED-CT Code Diagnosis ICD10 Code Diagnosis IMO Codes Diagnosis Note [id number] MAURO DUFFY NP [facility] [address] [place] [address] 01/17/2023 11:16:19 01/22/2023 12:34:21 Pleural effusion 40449183 J90 and empyema, resp. failures/p L chest tube, intubation Clinically improved.M onitor VS, sats, LS, CP status closely for decompensa tion Pneumonia 180401982 J18. 9 Treated with IV zosyn in hosp.Clini lesly improved.A s above, monitlr VS, sats, LS, CP status closely Asthenia 82174542 R53.1 PT OT eval and tx. Moderate protein-calorie malnutrition (weight for age 60-74 percent of standard) 125091884 E44.0 Started supplement s in hosp.Refer to real estate sales supervisor here.Seen by ST in hosp, diet changed to chopped/ad vanced consistenc yOn reg. diet here, doing well. Refer to rehab to try to get bedside FEES testing Hypertensive disorder 38 375057 I10 On norvasc 5 mg dailyPropr anolol ER held in hosp., instructed to resume 03/09, unclear as to why held or if used for something else?Monio r VS, adjust meds prn Human immunodeficiency virus infection 31379977 B20 Continue biktarvy Mixed anxi ety and depressive disorder 524777803 F41.8 Continue home meds:clona zepam 1 mg daily? risperdal 2 mg HSremeron 60 mg HSMonitor mood, behaviors for changePsyc h eval prn Asthma 207177955 J45.90 9 Continue flovent bidMonitor resp. status for change Acute dermatitis 8629843 6 L30.9 bilat. groin, fungalstar t nystatin cream or powder bid x 14 days or until clearmonit or Migraine 95032356 G43.90 9 Continue home meds:Celeb monica 200 mg bidgabapen tin 600 mg tidibuprof en 800 mg q8 hr prnultram 50 daily prn? clonazepam 1 mg daily? risperdal 2 mg HS? propranolo l Er 120 mg daily - held in hosp - cont. to hold here, resume date of 03/09 [id number] Kenia Michaels MD [address] [address] 01/19/2023 07:22:18 01/22/2023 15:16:30 Pneumonia 015606559 J15.8 antibiotic s completeds /p empyema, respirator y failure, intubation will monitor Asthenia 76342891 R53.1 PT/OTwill monitor Human immunodeficiency virus infection 11634244 B20 Biktarvy 50-200-25 dailyfu I.D. Essential hypertension 59727507 I10 amlodipine 5 mg dailywill monitor Mixed anxi ety and depressive disorder 675408544 F41.8 gabapentin 600 mg tidmirtaza pine 60 mg at hsrisperid one 2 mg at hsclonazep am 1 mg dailywill monitor Gastroesop hageal reflux disease without esophagitis 347864882 K21.9 pantoprazo le 40 mg dailywill monitor Chronic pain 98490885 G8 9.29 gabapentin 600 mg tidhospita l discharge notes include:ce lecoxib 200 m bid, ibuprofen 800 mg q8h prn, tramadol 50 mg daily prnwill monitor and consider if needed [id number] Panchito Morales NP [facility] on [address] [place] [address] 06/30/2023 08:20:37 07/03/2023 11:44:52 Human immunodeficiency virus infection 72063938 B20 06/30/23mo nitorID consult as indicated- biktarvy (bictegrav ir, emtricitab ine & tenofovir alafenamid e) 50-200-25m g QD Hypertensive disorder 38 337761 I10 06/30/23mo nitorcards FU PRNavoid beta barb with HX of cocaine abuse-amlo dipine 5mg QD Mixed anxi ety and depressive disorder 162307643 F41.8 06/30/23mo nitorpsych consult PRN-risper idone 3mg QHS Viral hepatitis C 329093 07 B19.20 06/30/23mo nitor [id number] Leilani Romeo MD [facility] on [address] [place] [address] 07/02/2023 17:00:01 07/12/2023 14:37:46 Human immunodeficiency virus infection 43845626 B20 Non-detect able on last checkConti nue biktarvy (bictegrav ir, emtricitab ine & tenofovir alafenamid e) 50-200-25m g QDF/U with ID as planned. Hypertensive disorder 38 171869 I10 BP good since here.Sam nue amlodipine 5 mg qdMonitor BP and labs. Mixed anxi ety and depressive disorder 109256545 F41.8 Mood stable.Con tinue risperidon e 3 mg qhs, mirtazapin e 30 mg qhs, and clonazepam 1 mg qd.Monitor mood.Psych consult prn. Viral hepatitis C 653912 07 B18.2 Unclear hx.LFTs WNL.F/U as outpt. Acute chest pain 4921629 01 R07.89 Per cardio not ACS.Monito r sxs.F/U with cardio prn. Non-trauma tic rhabdomyolysis 251918569 M62.82 CPK trended down inpt.No need to monitor further. Moderate p ersistent asthma 767762378 J45.40 No SOB or hypoxia, but with junky cough as above.Cont inue Advair 230/21 two puffs BID, Flovent 2 puffs BID, and albuterol/ budesonide 2 puffs q 6 hrs prn.Monito r resp status. 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 Cough 09319063 R05.8 Sounds junky, but pt says it feels like tickle in throat. Maybe post nasal drip.Lungs clear, but still could be early PNA.Will start Robitussin DM 10 ml q 4 hrs prn and get CXR tomorrow.M onitor resp status. Insomnia 045808703 G47.0 9 Will try melatonin 5 mg qhs.Monito r sleep patterns. [id number] MIGUEL BROWN [facility] on [address] [place] [address] 07/05/2023 08:16:20 07/12/2023 16:01:31 Mixed anxiety and depressive disorder 777808747 F41.8 07/05: his mood is stablecont inue:clona zepam 1 mg dailyrispe ridone 3 mg daily at bedtime.Mi rtazapine 30 mg at bedtime daily.tu tonin 5 mg at bedtime daily Cough 75829720 R05.8 07/05: non productive upper airway congested coughThere is no SOB. LS are clearCXR completed; no active pulmonary infiltrate s or pleural effusions seen.Robit ussin DM 10 ml q 4 hrs prn- will scheduled for a few days, does not look like he requested prn.Monito r resp status. Harmful pa ttern of use of multiple substances 030793553 F19.10 Most often cocaine, but sometimes other things.Con tinue SUDs counseling while here and encourage abstinence and outpt f/u. [id number] MIGUEL BROWN [facility] on [address] [place] [address] 07/06/2023 09:35:29 07/12/2023 16:16:45 Mixed anxiety and depressive disorder 436011871 F41.8 continue:c lonazepam 1 mg dailyrispe ridone 3 mg daily at bedtime.Mi rtazapine 30 mg at bedtime daily.tu tonin 5 mg at bedtime dailyfollo w up with outpatient PCP. Cough 58457611 R05.8 CXR on 07/03/23 negative for any acute process.Ro bitussin DM 10 ml q 4 hrs prnfollow up with outpatient PCP. Acute dermatitis 7388987 6 L30.9 continueny statin cream BID as needed until clearedfol low up with outpatient PCP. Asthma 904210242 J45.90 9 Advair 230/21 two puffs BID,Floven t 2 puffs BID, andalbuter ol/budeson kentrell 2 puffs q 6 hrs prn.follow up with outpatient PCP. Human immunodeficiency virus infection 45143711 B20 Continue biktarvy (bictegrav ir, emtricitab ine & tenofovir alafenamid e) 50-200-25m g QD Hypertensive disorder 38 773343 I10 Continue amlodipine 5 mg qdfollow up outpatient Insomnia 517613302 G47.0 9 melatonin 5 mg at bedtime Migraine 55510877 G43.90 9 Continue home meds: Celebrex 200 mg bid gabapentin 600 mg tid ibuprofen 800 mg q8 hr prn ultram 50 daily prn clonazepam 1 mg daily risperdal 3 mg HS follow up with PCP Viral hepatitis C 645993 07 B18.2 follow labs outpatient follow up with outpatient pcp. [id number] Maryjane Glover NP [address] [address] 08/03/2023 12:58:35 08/08/2023 10:07:33 Human immunodeficiency virus infection 93699630 B20 ID consult prnbiktarv y (bictegrav ir, emtricitab ine & tenofovir alafenamid e) 50-200-25m g QD Asthenia 24370861 R53.1 PT/OT treat and evalwill monitor Essential hypertension 13058216 I10 amlodipine 5 mg dailywill monitor Mixed anxi ety and depressive disorder 293572075 F41.8 gabapentin 600 mg tidmirtaza pine 60 mg at hsrisperid one 3 [facility] 1 mg dailypsych prnwill monitor Gastroesop hageal reflux disease without esophagitis 724409196 K21.9 With recent workup in hosp and PEG placed.use G tube for feedings/m edswill monitor Chronic pain 00289973 G8 9.29 gabapentin 600 mg tidtramado l 50 mg prn dailymulti ple allergies notedwill monitor and consider if needed Harmful pa ttern of use of multiple substances 168863923 F19.10 Most often cocaine per hx with overdoses notedConti nue counseling while here and encourage abstinence and outpt f/u. Asthma 905679628 J45.90 9 advair 2 puff bidalbuter ol 2 puffs q 6 hours prn wheezingMo nitor resp. status for change Viral hepatitis C 519892 07 B18.2 fu with labscurren tly stable liver enzymesmon itor Moderate protein-calorie malnutrition (weight for age 60-74 percent of standard) 754228785 E44.0 now on PEG tube with feedings at 60cc/hrRef er to real estate sales supervisor here.Seen by in hosp, unclear why he has dysphagia and difficulty eating with workup including EGD at [facility] recentlysp eech eval and treat here to see if he can take po intakemoni tor Anemia 230599533 D64.9 ferrous gluconate 324 dailymonit or cbc weekly Adult fail ure to thrive syndrome 441388845 R62.7 g tube feedings and meds through g tube at 60cc/hrfai lure to thrive with supplement s in pastspeech to eval and treat, consider reintroduc ing foods when ableweight s weeklymoni tor Insomnia 977758251 G47.0 9 benedryl 25 mg qhsmonitor [id number] Leilani Romeo MD [address] [place] [address] 08/06/2023 16:28:34 08/08/2023 11:16:44 Adult failure to thrive syndrome 709260388 R62.7 With marked wt. loss over past few months.Con tinue Jevity 1.0 or 1.2 tanya/ml at 60 ml/hr.Stil l unable to swallow, unknown reason.Con momo DATA GOVERNANCE ANALYST interventi ons to hopefully enable him to eat again.Cait gardner wts and labs. Moderate protein-calorie malnutrition (weight for age 60-74 percent of standard) 093766281 E44.0 As above. Human immunodeficiency virus infection 46390598 B20 Last labs show zero viral load.Sam nue Biktarvy (bictegrav ir, emtricitab ine & tenofovir alafenamid e) 50-200-25m g QDF/U with ID as planned. Asthenia 97453224 R53.1 Very deconditio armen.Needs PT/OT for strengthen ing, balance, gait training, safety and function.C ontinue fall precaution s.Monitor for safety. Essential hypertension 67126381 I10 BP running low since here, should improve as nutritiona l status improves.C ontinue amlodipine 5 mg qdMonitor BP and labs. Gastroesop hageal reflux disease without esophagitis 786400306 K21.9 On no meds.I wonder if starting a PPI may help with throat pain?Monit or Chronic pain 56427852 G8 9.29 No c/o tonight.Co ntinue gabapentin 600 mg TID and tramadol 50 mg qd prnMonitor sxs. Asthma 383235645 J45.30 Asthma meds transcribe d incorrectl y on admission here.Was not put on Advair, but rather only albuterol/ budesonide prn.Will restart Advair 230/21 mcg two puffs BIDMonitor resp. status Anemia 223786948 D64.89 Not currently anemic.Con tinue ferrous gluconate 324 mg qdMonitor labs Mixed anxi ety and depressive disorder 146944938 F41.8 Mood stable.Con tinue risperidon e 3 mg qhs, mirtazapin e 60 mg qhs, and clonazepam 1 mg qd.Monitor mood.Psych consult prn. Viral hepatitis C 203731 07 B18.2 Unclear hx.LFTs WNL.F/U as outpt. Harmful pa ttern of use of multiple substances 704884735 F19.10 Most often cocaine, but sometimes other things.Con tinue counseling and encourage abstinence and outpt f/u. Dysphagia 10254310 R13.1 9 Unknown etiology.C ontinue G-tube feeding as above.Cons ider ENT consult. [id number] Maryjane Glover NP [address] [address] 08/16/2023 12:26:03 08/22/2023 11:29:11 Adult failure to thrive syndrome 725247451 R62.7 With marked wt. loss over past few months.Con braydenueJevit y 1.5 tanya/ml at 60 ml/hr. real estate sales supervisor following and will adjust as neededStil l unable to swallow, unknown reason.Mehrdad barr DATA GOVERNANCE ANALYST interventi ons to hopefully enable him to eat again.Cait tor wts and labs. Dysphagia 18616859 R13.1 9 Unknown etiology.C ontinue G-tube feeding as above.Cons ider ENT consult. Moderate protein-calorie malnutrition (weight for age 60-74 percent of standard) 451116406 E44.0 As above. Human immunodeficiency virus infection 33851798 B20 Last labs show zero viral load.Sam nueBiktarv y (bictegrav ir, emtricitab ine & tenofovir alafenamid e) 50-200-25m g QDF/U with ID as planned. Asthenia 24443571 R53.1 Very deconditio armen.Needs PT/OT for strengthen ing, balance, gait training, safety and function.C ontinue fall precaution s.Monitor for safety. Essential hypertension 70453765 I10 BP running low since here, should improve as nutritiona l status improves.a mlodipine 5 mg qdMonitor BP and labs. Gastroesop hageal reflux disease without esophagitis 082179683 K21.9 no meds.Monit or Chronic pain 29895286 G8 9.29 has mild headache todayConti nuegabapen tin 600 mg TIDtramado l 50 mg qd prnMonitor sxs. Asthma 367235897 J45.30 Asthma meds transcribe d incorrectl y on admission here.albut maddi/budes onide prn.Advair 230/21 mcg two puffs BIDMonitor resp. status Anemia 639372593 D64.89 Not currently anemic.juan carlos l order cbc and bmp weekly i8ptoqpur gluconate 324 mg qdMonitor labs Mixed anxi ety and depressive disorder 987097428 F41.8 Mood stable.ris peridone 3 mg qhsmirtaza pine 60 mg qhs,clonaz epam 1 mg qd.Monitor mood.Psych consult prn. Viral hepatitis C 318200 07 B18.2 Unclear hx.LFTs WNL.F/U as outpt. Harmful pa ttern of use of multiple substances 861706926 F19.10 Most often cocaine, but sometimes other things.Mehrdad barr counseling and encourage abstinence and outpt f/u. [id number] Maryjane Glover NP [address] [address] 08/22/2023 11:06:38 08/28/2023 14:23:57 Adult failure to thrive syndrome 638822003 R62.7 With marked wt. loss over past few months.Con momoJevit y 1.2 tanya/ml at 67ml/hr. real estate sales supervisor following and will adjust as neededStil l unable to swallow, unknown reason.Mehrdad barr DATA GOVERNANCE ANALYST interventi ons to hopefully enable him to eat again.Cait tor wts and labs.08/22 real estate sales supervisor to assess if bolus feedings can be attempted for homefamily /pt needs g tube care/teach ing for ? dc homemonito r Asthenia [id number] R53.1 Very deconditio armen, improving every week with therapyNee ds PT/OT for strengthen ing, balance, gait training, safety and function.C ontinue fall precaution s.Monitor for safety. Dysphagia [id number] R13.1 9 Unknown etiology.C ontinue G-tube feeding as above.Cons ider ENT consult. Anemia 746957488 D64.89 Not currently anemic.juan carlos scales order cbc and bmp weekly [id number] gluconate 324 mg qdMonitor labs Moderate protein-calorie malnutrition (weight for age 60-74 percent of standard) 494196608 E44.0 As above. Human immunodeficiency virus infection 04413165 B20 ContinueBi ktarvy (bictegrav ir, emtricitab ine & tenofovir alafenamid e) 50-200-25m g QDF/U with ID as planned. Essential hypertension 82536495 I10 BP now improving as nutritiona l status improves.1 10s-130s /60scontam lodipine 5 mg qdMonitor BP and labs. Gastroesop hageal reflux disease without esophagitis [id number] K21.9 no meds.Monit or Chronic pain 11860495 G8 9.29 headache resolvedCo ntinuegaba pentin 600 mg TID, no pain todaytrama dol 50 mg qd prnMonitor sxs. Asthma 958747541 J45.30 Asthma meds transcribe d incorrectl y on admission here.albut maddi/budes onide prn.Advair 230/21 mcg two puffs BIDMonitor resp. status Mixed anxi ety and depressive disorder 291047041 F41.8 Mood stable and ding wellrisper idone 3 mg qhsmirtaza pine 60 mg qhs,clonaz epam 1 mg qd.Monitor mood.Psych consult prn. [id number] Maryjane Glover NP [address] [address] 08/29/2023 08:14:48 08/30/2023 19:42:34 Adult failure to thrive syndrome [id number] R62.7 With marked wt. loss over past few months.Con tinueJevit y 1.2 tanya/ml at 67ml/hr. real estate sales supervisor following and will adjust as neededStil l unable to swallow, unknown reason.per speech eval: no eating or drinkingMo nitor wts and labs.08/22 real estate sales supervisor to assess if bolus feedings can be attempted for homefamily /pt needs g tube care/teach ing for ? dc homemonito r110/30 awaiting real estate sales supervisor to calculate gtube feedings and start Asthenia 72549551 R53.1 Very deconditio armen, improving every week with therapyNee ds PT/OT for strengthen ing, balance, gait training, safety and function.C ontinue fall precaution s.Monitor for safety. Dysphagia 88138865 R13.1 9 Unknown etiology.C ontinue G-tube feeding as above.Cons ider ENT consult. Anemia 708846000 D64.89 Not currently anemic.juan carlos l order cbc and bmp prn, labs stableferr ous gluconate 324 mg qdMonitor labs Moderate protein-calorie malnutrition (weight for age 60-74 percent of standard) 115507209 E44.0 As above. Human immunodeficiency virus infection 43110870 B20 ContinueBi ktarvy (bictegrav ir, emtricitab ine & tenofovir alafenamid e) 50-200-25m g QDF/U with ID as planned. Essential hypertension 47289456 I10 BP now improving as nutritiona l status improves.1 conta mlodipine 5 mg qdMonitor BP and labs. Gastroesop hageal reflux disease without esophagitis 267564180 K21.9 no meds.Monit or Chronic pain 49565792 G8 9.29 headache resolvedCo ntinuegaba pentin 600 mg TID, no pain todaytrama dol 50 mg qd prnMonitor sxs. Asthma 237119427 J45.30 Asthma meds transcribe d incorrectl y on admission here.albut maddi/budes onide prn.Advair 230/21 mcg two puffs BIDMonitor resp. status Mixed anxi ety and depressive disorder 353732697 F41.8 Mood stable and ding wellrisper idone 3 mg qhsmirtaza pine 60 mg qhs,clonaz epam 1 mg qd.Monitor mood.Psych consult prn. Neck pain 85267746 M54.2 incidental neck pain, states slept on it wrongnsg giving tyl, tramadol and gabapentin reposition neckmonito r for relief [id number] Dilia Hutchinson [address] [address] 09/07/2023 05:15:43 09/13/2023 10:39:11 Adult failure to thrive syndrome 448698143 R62.7 With marked wt. loss over past few months.Con tinueJevit y 1.2 tanya/ml at 67ml/hr. real estate sales supervisor following and will adjust as neededStil l unable to swallow, unknown reason.Con braydenue DATA GOVERNANCE ANALYST interventi ons to hopefully enable him to eat again.Cait tor wts and labs.recei deborah education on gt feeds, SW working on VNA set up for [facility] GT site daily with NS and dry. apply 2x2 to sitemonito r Asthenia 56060576 R53.1 Very deconditio armen, improving every week with therapyNee ds PT/OT for strengthen ing, balance, gait training, safety and function.C ontinue fall precaution s.Monitor for safety. Dysphagia 06253682 R13.1 9 Unknown etiology.C ontinue G-tube feeding as above.Cons ider ENT consult. Anemia 364317881 D64.89 Not currently anemic.juan carlos l order cbc and bmp weekly [id number] gluconate 324 mg qdMonitor labs Moderate protein-calorie malnutrition (weight for age 60-74 percent of standard) 139677696 E44.0 As above. Human immunodeficiency virus infection 69746265 B20 ContinueBi ktarvy (bictegrav ir, emtricitab ine & tenofovir alafenamid e) 50-200-25m g QDF/U with ID as planned. Essential hypertension 21992786 I10 BP now improving as nutritiona l status improves.1 10s-130s /60scontam lodipine 5 mg qdMonitor BP and labs. Gastroesop hageal reflux disease without esophagitis 984937334 K21.9 no meds.Monit or Chronic pain 24053554 G8 9.29 headache resolvedCo ntinuegaba pentin 600 mg TID, no pain todaytrama dol 50 mg qd prnMonitor sxs. Asthma 416336723 J45.30 Asthma meds transcribe d incorrectl y on admission here.albut maddi/budes onide prn.Advair 230/21 mcg two puffs BIDMonitor resp. status Mixed anxi ety and depressive disorder 756215098 F41.8 Mood stable and ding wellrisper idone 3 mg qhsmirtaza pine 60 mg qhs,clonaz epam 1 mg qd.Monitor mood.Psych consult prn. [id number] Maryjane Glover NP [address] [address] 09/12/2023 18:08:08 09/14/2023 11:17:17 Adult failure to thrive syndrome 216524279 R62.7 With marked wt. loss over past [...] dry. apply 2x2 to sitemonito r Asthenia 43701850 R53.1 Very deconditio armen, improving every week with therapyNee ds PT/OT for strengthen ing, balance, gait training, safety and function.C ontinue fall precaution s.Monitor for safety. Dysphagia 73024581 R13.1 9 Unknown etiology.C ontinue G-tube bolus feeding as above.FEES test on Sundayneed s cxr to rule out pna from foods and drinks in room despite recommenda tionConsid er ENT consult. Moderate protein-calorie malnutrition (weight for age 60-74 percent of standard) 346195787 E44.0 As above. Human immunodeficiency virus infection 53401013 B20 ContinueBi ktarvy (bictegrav ir, emtricitab ine & tenofovir alafenamid e) 50-200-25m g QDF/U with ID as planned. Essential hypertension 87947728 I10 BP now improving as nutritiona l status improves.1 10s-130s /60scontam lodipine 5 mg qdMonitor BP and labs. Asthma 473161857 J45.30 no wheezing noted on exam, stablealbu terol/bude sonide prn.Advair 230/21 mcg two puffs BIDMonitor resp. status Mixed anxi ety and depressive disorder 454799270 F41.8 Mood stable and ding wellrisper idone 3 mg qhsmirtaza pine 60 mg qhs,clonaz epam 1 mg qd.Monitor mood.Psych consult prn. [id number] MAURO DUFFY NP [address] [address] 09/18/2023 08:57:08 09/25/2023 10:49:09 Adult failure to thrive syndrome 008875927 R62.7 With marked wt. loss over past few months due to difficulty swallowing .G tube placed 07/30/23 at [facility].Contin ue osmolite 1.2 tanya/ml 410 cc qid bolus tube feedings upon d/c home.Seen by DATA GOVERNANCE ANALYST - now on puree diet with thin liquids - may continue at homeContin ue to monitor weights and intake at home Asthenia 42420374 R53.1 Improved, meeting rehab goals for d/c home today with support of services.C ontinue fall precaution s.Monitor for safety as outpt. Dysphagia 10507370 R13.1 9 Unknown etiology.S ee above.[facility]No w on pureed diet, thin liquidsMon itor intake, s/s aspiration as outpt. Moderate protein-calorie malnutrition (weight for age 60-74 percent of standard) 040022325 E44.0 As above. Human immunodeficiency virus infection 40565890 B20 ContinueBi ktarvy (bictegrav ir, emtricitab ine & tenofovir alafenamid e) 50-200-25m g QDF/U with ID as planned. Essential hypertension 93962467 I10 continue amlodipine 5 mg qdMonitor BP as outpt. Asthma 469735091 J45.30 no wheezing noted on exam, stablecont inue Advair 230/21 mcg two puffs BID and albuterol/ budesonide prn.Monito r resp. status as outpt. Mixed anxi ety and depressive disorder 553767868 F41.8 Mood stable and doing wellContin ue home medsrisper idone 3 mg qhsmirtaza pine 60 mg qhsclonaze david 1 mg qdMonitor mood, behaviors as outpt. Chronic pain 84249023 G8 9.29 continue gabapentin 600 mg tid, ultram 50 mg qd prnmonitor asoutpt. Anemia 729300161 D64.89 remains on daily FeMonitor CBC,s/s active bleeding Health Concerns Section Related Observation LastModified by Organization Detai ls LastModified Time None Recorded Concern Status LastModified by Organization Details LastModified Time None Recorded Advance Directives Directive Y: Payers Insurance Date Sequence Insurance Name Policy Number Policy Perry Covered Member ID Perry Member ID Guarantor Name 09/25/2023 1 [facility] - DOS ON OR AFTER 2022 - MEDICARE ADVANTAGE [place] (MEDICARE REPLACEMENT/ADV ANTAGE - PPO) Benjamin Fall [id number] Benjamin Fall Notes Date Note Type Note [...] other concerns. Note: He was admitted to [facility] ED for similar concerns earlier this month [...] code signed 01/17/23 Maryjane Glover NP [address], [address], [place], [address], [facility] - [employer] 08/22/2023 11:24:08 08/29/2023 text/html Patient seen for an 30 routine rounding visit. Past medical history significant for HIV, history of hep C, depression, asthma, history lung abscess 2020, fall, several overdoses noted in hx. dysphagia seen for difficulty swallowing ultimately diagnosed with failure to thrive and PEG tube placed. Benjamin was admitted to [facility] ED for difficulty swallowing and underwent EGD [...] disconnect his feedings without difficulty here. Awaiting real estate sales supervisor to calculate bolus feedings and start [...] code signed 01/17/23 Maryjane Glover, LADAN [address], [address], [place], [address], [facility] [employer] 08/29/2023 13:39:07 09/07/2023 text/html ROS as noted [...] other concerns. Note: He was admitted to [facility] ED for similar concerns earlier this month [...] MOLST: Full code signed 01/17/[address]cy [address], [address], [place], [address], [facility] [employer] 09/07/2023 13:21:25 09/12/2023 text/html ROS as noted [...] code signed 01/17/23 Maryjane Glover NP [address], [address], [place], [address], [employer] 09/12/2023 19:33:00 09/18/2023 text/html Benjamin is seen today for discharge. He is going home today with support of services. He is a 58 yo man admitted to [facility] 08/02/23 from [facility] for continued care and rehab after a hospitalization related to malnutrition and FTT.He presented to [facility] 07/27 reporting throat pain and the inability to swallow.Swallowing issues problematic prior to this presentation, had EGD with Dr. Dodson 07/17, results c/w mild candidiasis normal stomach and duodenum. He was also seen by DATA GOVERNANCE ANALYST, diet changed to NND1 and nectar thick liquid. Due to ongoing swallowing issues at home, he returned to [facility] ER.A g-tube was placed on 07/30, cause of dysphagia unclear. Kept NPO, and sent here for rehab. While here, Benjamin has done well.Worked with PT/OT, meeting goals for d/c home.Also worked with DATA GOVERNANCE ANALYST and real estate sales supervisor - now tolerating puree diet with [...] also, possibly inadvertently). MAURO DUFFY NP [address], [address], [place], [address], [employer] 09/18/2023 09:47:21
--- OUTSIDE RECORDS SUMMARY | 2025-07-22 14:12 | XMS_ITS | Clinical Summary ---
Author Organization [address] [facility] Address [address] [place] [address] Phone Care Team Providers Care Show Design Supervisor Name Role Phone Physician, Pcp Unknown [...] Orthopedic Surgery [facility] [address] [phone] Kb Benitez DPM Pain in toes of both feet (Primary Dx); Metatarsalgia of right foot; Arthritis of both feet; Contracture, left foot; Dermatophytosis, nail 05/19/2025 9:30 AM EDT Office Visit Orthopedic Surgery [facility] [address] [phone] Kb Benitez DPWilmer Pain in toes of both feet (Primary Dx); Metatarsalgia of right foot; Arthritis of both feet; Dermatophytosis, nail; Contracture, left foot 05/12/2025 Telephone Orthopedic [facility] [address] [phone] EliKb eason DPM 05/05/2025 9:45 AM EDT Consult Orthopedic Surgery - [facility] [address] [phone] Kb Benitez DPM Pain in toes of both feet (Primary Dx); Arthritis of both feet; Metatarsalgia of right foot; Onychogryphosis; Dermatophytosis, nail from Last 3 Months Surgical History Surgery Date Site/Laterality Comments EYE SURGERY Left PROCEDURE: HISTORICAL EYE SURGERY OTHER SURGICAL HISTORY PROCEDURE: ---- OTHER ----; COMMENT: hemorrhoids Medical History Medical History Date Comments [place] [place] [facility]/29/[place] DX:Seizures ([facility] COMMENT: F/u with neuro at [place] Dr Costello HIV (human immunodeficiency virus infection) ([facility], [facility] [place] 06/29/2016 DX:HIV (human [...] AM EST Office Visit Orthopedic Surgery - [facility] [address] [phone] Kb Benitez DPM [address] [address] Health Maintenance Due Date Last Done Comments [...] Hypertension/CHF/CAD Annual BMP Blood Test 05/05/2025 07/02/2023 COVID-19 Vaccine ( season) 2025 12/18/2024, 06/24/2024, 09/27/2023, Additional history exists Influenza Vaccine (#1) 2025 , 06/21/2023, 07/06/2022, Additional history exists DTaP,Tdap,and Td Vaccines (3 - Td or Tdap) 04/20/2027 04/20/2017, 05/26/2013 Pneumococcal Vaccine: 50+ Years Completed 02/27/2023, 01/31/2023, 03/19/2013 Zoster Vaccines Completed 02/27/2023, 11/08, 11/26/2018 RSV Immunization Adult Patients Completed 08/12/2024 HIB Vaccines Aged Out No longer eligi [...] Phone Billing Address Personal/Family Self 1965 [address] [place] [address] MEDICAID - [place] [employer] MEDICARE Member Subscriber Plan / Payer (Ef fective 2017-Present) Name:VICKIE GROVER Relation to Subscriber:Self Name:Vickie Fall Payer ID:[id number] Group ID:[id number] Type:Not on file Address: [address] [place] [address] Care Teams Show Design Supervisor Relationship Specialty Start Date End Date Physician, Pcp Unknown PCP - General 03/10/25
--- OUTSIDE RECORDS SUMMARY | 2025-07-22 14:12 | XMS_ITS | Clinical Summary ---
Author Organization [facility] Address [address] [address] Phone Care Team Providers Care Truck Leasing Manager Name Role Phone Gaetano Gibbons MD Primary Care Provider [phone] Social History Tobacco Use Types Packs/Day Years [...] patient's age to complete this topic IPV VACCINES Aged Out No longer eligi ble based on patient's age to complete this topic MENINGOCOCCAL VACCINES (ACWY) Aged Out No longer eligible based on patient's age to complete this topic MENINGOCOCCAL VACCINES (B) Aged Out N o longer eligible based on patient's age to complete this topic Medical Devices Not on file Care Teams Truck Leasing Manager Relationship Specialty Start Date End Date Gaetano Gibbons MD [email or web address] PCP - General Family Medicine 07/02/23 Additional Source Comments The information contained in this document represents components of the legal health record. It is not the complete legal health record.[facility]
--- OUTSIDE RECORDS SUMMARY | 2025-07-22 14:12 | XMS_ITS | Data Portability ---
Author Organization LYNN WHITE MD [facility], Main Office Address [address] [place] [phone] Assessment No assessment recorded. Plan of Treatment Reminders Order Date Submit Date Provider Last Modified By Organization Details Last Modified Time Details Appointments B20 FOLLOW UP 2024 11:00A Wilmer Levin MD Not available Not available Not available Lab HPV DNA, high-ris k, anal [address], [address] [place] [address], [id number], 03/09/2025 16:00:58 pap, LB, anal [address], [address] [place] [address], [address], 03/09/2025 16:01:16 chlamydi a + gonorrhe a DNA panel, unspecif ied specimen [address], [address] [place] [address], [id number], 03/09/2025 16:00:03 culture, throat [address], [address] [place] [address], [address], 03/09/2025 16:02:43 Referral None recorded . Procedures None recorded . Surgeries None recorded . Imaging None recorded . Medication Orders clotrima zole 10 mg klaudia 2024 025 [id number], [address] [place], [address], 04/13/2025 20:54:02 fluconaz ole 100 mg tablet 2024 025 [facility], [address] [place] [address], [address], 04/13/2025 20:54:03 Biktarvy 50 mg-200 mg-25 mg tablet 2024 025 [facility] [address] [place] [address], [address], 04/14/2025 17:57:16 clotrima zole 10 mg klaudia 2024 025 [facility] [address] [place] [address], [address], 03/09/2025 10:06:11 fluconaz ole 100 mg tablet 2024 025 [facility], [address] [place] [address], [address], 03/09/2025 10:06:10 Biktarvy 50 mg-200 mg-25 mg tablet 2024 [address] [facility] [address] [place] [address], [address], 03/09/2025 13:04:37 clotrima zole 10 mg klaudia 2024 025 [facility], [address] [place] [address], [address], 12/30/2024 16:32:25 Biktarvy 50 mg-200 mg-25 mg tablet 2024 025 [facility], [address] [place] [address], [address], 12/30/2024 16:32:25 clotrima zole 10 mg klaudia 2024 025 [facility] [address] [place], [address], 11/25/2024 13:20:54 Benadryl 25 mg capsule 2024 025 [facility] [address] [place], [address], 11/25/2024 13:20:55 Biktarvy 50 mg-200 mg-25 mg tablet 2024 025 [facility]2071, [address] [place], [address], 11/25/2024 13:20:54 clotrima zole 10 mg klaudia 2024 025 [facility] [address] [place], [address], 10/21/2024 14:29:45 Biktarvy 50 mg-200 mg-25 mg tablet 2024 025 [facility] [address] [place], [address], 10/21/2024 14:30:45 Patient TargetsNo targets recorded. Patient Instructions Encounter Date Encounter Id Patient Instructions Last Modified By Organization Details Last Modified Time 10/21/2024 [id number] Clotrimazole Oral Lozenge (CLOTRIMAZOLE LOZENGE - MUCOUS [...] atori es - Labor atory - [address] [facility], [place], [place] [id number] Not Available [facility] [address] [place], [address], 03/10/2025 08:50:56 03/09/20 25 03/09/2025 CHLAM YDIA TRACH OMATI S AND NEISS ERIA GONOR RHOEA E MOLEC ULAR STUDY neisseria gonorrhoeae PCR Negati ve negati ve Not Available [facility] [address] [place] [address], [address], 03/10/2025 08:50:56 03/09/20 25 03/09/2025 CHLAM YDIA TRACH OMATI S AND NEISS ERIA GONOR RHOEA E MOLEC ULAR STUDY chlamydia trachomatis PCR Negati ve negati ve Not Available [facility] [address] [place] [address], [address], 03/10/2025 08:50:56 03/09/20 25 03/09/2025 CULTU RE MISCE LLANE OUS .note See Note Origi nal Order ing Provi carlito: DELGADO TAYLORO CHRISTOPHER [facility] - Labor atory - [address] [place] [address], [place]ian annealess[place], [place] [address] Not Available [facility] [address] [place] [address], [address], 03/10/2025 11:21:36 03/09/20 25 03/09/2025 CULTU RE MISCE LLANE OUS miscellaneou s culture YEAST abnormal Yeast Not Available [facility] [address] [place] [address], [address], 03/10/2025 11:21:36 03/09/20 25 03/09/2025 CULTU RE MISCE LLANE OUS .note See Note Origi nal Order ing Provi carlito: DELGADO JORDON T MARTO CHRISTOPHER [facility] - Labor atory - [address] [place], [place] [address], [place] [address] Not Available [facility] [address] [place] [address], [address], 03/10/2025 11:26:38 03/09/20 25 03/09/2025 CULTU RE MISCE LLANE OUS miscellaneou s culture YEAST abnormal Yeast Not Available [facility] [address] [place], [address], 03/10/2025 11:26:38 03/09/20 25 03/09/2025 CULTU RE MISCE LLANE OUS .note See Note Origi nal Order ing Provi carlito: DELGADO Rogel MARTO CHRISTOPHER [facility] - Labor atory - [address] [facility], [place], [facility] [place] [address] Not Available [facility] [address] [place], [address], 03/10/2025 13:02:10 03/09/20 25 03/09/2025 CULTU RE MISCE LLANE OUS miscellaneou s culture YEAST abnormal Yeast Not Available [facility] [address] [place] [address], [address], 03/10/2025 13:02:10 03/09/20 25 03/09/2025 CULTU RE FUNGU S, OTHER THAN SKIN HAIR OR NAILS .note See Note Origi nal Order ing Provi carlito: DELGADO TAYLORO CHRISTOPHER [facility] - Labor atory - [address] [facility], [place], [facility] [place] [facility] [place] [address] Not Available [facility] [address] [place] [address], [address], 03/16/2025 14:09:09 03/09/20 25 03/09/2025 CULTU RE FUNGU S, OTHER THAN SKIN HAIR OR NAILS culture, fungus YEAST abnormal Yeast Not Available [facility] [address] [place] [address], [address], 03/16/2025 14:09:09 03/09/20 25 03/09/2025 THINP REP CYTOL OGY WITH HPV, ANAL .note See Note Origi nal Order ing Provi carlito: DELGADO Rogel MARTO CHRISTOPHER [facility] - Labor atory - [address] [facility], [place], [place] [address] Not Available [facility] [address] [place] [address], [address], 03/17/2025 14:23:11 03/09/20 25 03/09/2025 THINP REP CYTOL OGY WITH HPV, ANAL scan result See Scanne d Result Not Available [facility] [address] [facility], [place], [address], 03/17/2025 14:23:11 03/09/20 25 03/09/2025 NON-G YNECO LOGIC CYTOL OGY .note See Note Origi nal Order ing Provi carlito: DELGADO IA T MARTO CHRISTOPHER [facility] - Labor atory - [address] [facility], [place] gf[place], [place] [address] Not Available [facility] [address] [facility], [place], [address], 03/17/2025 14:32:10 03/09/20 25 03/09/2025 NON-G YNECO LOGIC CYTOL OGY final diagnosis Specim en sent to [facility] joey for Anal cytolo gy with [...] jurgen cteri stics were deter mined by [facility] c in a toribio r consi stent with CLIA requi remen ts. This test has not been clear ed or appro deborah by the U.S. Food and Drug Admin istra tion Repor t tamra d elect terry correia by: Qi judge M.D. on 16 Mar 2025 at 13:55 at [facility], [address], [place] (CLIA [id number] ) HPV Anal Detec t/Gen otypi ng, [...] ed in the diane xt of a [facility] Non-G YN Cytol ogy case; this resul t shoul d be inter prete d withi n the diane xt of the Non-G YN cytol ogy repor t. Resul lucho 12 Mar 2025 at 17:00 by [facility] Labor atori es, [address], [place] (CLIA [id number] ) Full repor t attac hed. Elect terry barboza d by Sintia wu MD on 025 at 2:31 PM Not Available [facility] [address] [place] [address], [address], 03/17/2025 14:32:10 03/09/20 25 03/09/2025 NON-G YNECO LOGIC CYTOL OGY disclaimer Unless otherw ise specif ied, all tissue is 10% NB formal in fixed and paraff in embedd ed. Techn ical cytop athol ogy servi surekha provi ded by Miguelina woods [facility], at [address], [place] [address] (CLIA # [id number] /Joe orourke MD, Medic al Direc tor.) Not Available [facility] [address] [place], [address], 03/17/2025 14:32:10 03/09/20 25 03/09/2025 CULTU RE FUNGU S, OTHER THAN SKIN HAIR OR NAILS .note See Note Origi nal Order ing Provi carlito: DELGADO SCHAEFFER CHRISTOPHER [facility] - Labor atory - [address] [facility], [place], [place] [facility] [facility] [address] Not Available [facility] [address] [place], [address], 03/18/2025 08:10:44 03/09/2003/09/2025 CULTU RE FUNGU S, OTHER THAN SKIN HAIR OR NAILS culture, fungus CANDID A ALBICA NS abnormal Julianna da albic ans Edite d resul t: Previ ously repor lucho as Yeast on 025 at 1407 EDT. Not Available [facility] [address] [place] [address], [address], 03/18/2025 08:10:44 06/19/2004/23/2025 imagi ng/di agnos tic resul t No observ ation record ed. [email or web address] Not Available 2024 16:37:26 Result Notes None recorded. 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 Human immunodefi ciency virus [HIV] disease; snomeddesc ription: Human immunodefi ciency virus infection; Report Immunity to Registry: Yes; Human immunodefi ciency virus infection; snomeddesc ription: Human immunodefi ciency virus infection; Report Immunity to Registry: Yes; Not Available [facility] 4 06:58:53 Anxiety 09161884 Active 1996 Anxiety; snomeddesc ription: Anxiety; Report Immunity to Registry: Yes; Not Available [facility] 4 06:58:54 Insomnia 170174902 Active 1996 Insomnia; Report Immunity to Registry: Yes; Not Available [facility] 4 06:58:57 Anxiety state 371982854 Active 1996 Anxiety state, unspecifie d; snomeddesc ription: Anxiety; Report Immunity to Registry: Yes; Not Available [facility] 4 06:58:57 Depressiv e disorder 43201556 Active 1996 Depressive disorder, not elsewhere classified ; snomeddesc ription: Depressive disorder; Report Immunity to Registry: Yes; Depressiv e disorder; snomeddesc ription: Depressive disorder; Report Immunity to Registry: Yes; Not Available [facility] 4 06:58:58 Arthritis 5621623 Active 1998 Arthritis; snomeddesc ription: Arthritis; Report Immunity to Registry: Yes; Notes: Osteoatrth ris multiple; Not Available [facility] 4 06:58:55 Arthropat hy 510219328 Active 1998 Arthropath y, unspecifie d, site unspecifie d; snomeddesc ription: Arthritis; Report Immunity to Registry: Yes; Notes: Osteoatrth ris multiple; Not Available [facility] 4 06:58:56 Sleep apnea 62543426 Active 1999 Sleep apnea; snomeddesc ription: Sleep apnea; Report Immunity to Registry: Yes; Unspecifi ed sleep apnea; snomeddesc ription: Sleep apnea; Report Immunity to Registry: Yes; Not Available [facility] 4 06:58:55 Seizure 31721989 Active 2000 Seizure; snomeddesc ription: Seizure; Report [...] Immunity to Registry: Yes; Not Available [facility] 4 06:58:58 Kidney stone 32196944 Active 2001 Calculus of kidney; snomeddesc ription: Kidney stone; Report Immunity to Registry: Yes; Kidney stone; snomeddesc ription: Kidney stone; Report Immunity to Registry: Yes; Not Available [facility] 4 06:58:54 History of calculus of kidney 627664948 Active 2001 History of calculus of kidney; snomeddesc ription: History of calculus of kidney; Report Immunity to Registry: Yes; Not Available [facility] 4 06:58:54 History of urinary stone 783762731 Active 2001 Personal history of urinary calculi; snomeddesc ription: History of calculus of kidney; Report Immunity to Registry: Yes; Not Available [facility] 4 06:58:56 Asthma 379490383 Active 2006 Asthma; snomeddesc ription: Asthma; Report Immunity to Registry: Yes; Asthma; Report Immunity to Registry: Yes; ReasonDate : 10/13/2019 ; ; Start Date : 10/13/2019 Asthma; snomeddesc ription: Asthma; Report Immunity to Registry: Yes; Not Available [facility] 4 06:58:53 Diarrhea 97842836 Active 2006 Diarrhea; snomeddesc ription: Diarrhea; Report Immunity to Registry: Yes; Diarrhea, unspecifie d; snomeddesc ription: Diarrhea; Report Immunity to Registry: Yes; Not Available [facility] 4 06:58:53 Substance abuse 06213088 Active 2006 Substance abuse; snomeddesc ription: Substance abuse; Report Immunity to Registry: Yes; Notes: opiate/suad jolene/benzo ; Not Available [facility] 4 06:58:53 Fibromyos itis 15688130 Active 2006 Myalgia and myositis, unspecifie d; snomeddesc ription: Fibromyalg ia; Report Immunity to Registry: Yes; Notes: Chronic pain multiple/c hronic back pain; Not Available [facility] 4 06:58:53 Type B viral hepatitis 67154515 Active 2006 Type B viral hepatitis; snomeddesc ription: Type B viral hepatitis; Report Immunity to Registry: Yes; Notes: core ab pos; s ag neg; s ab neg HBV vL nondetecte d 2016; 2017; Not Available [facility] 4 06:58:54 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 95536419 Active 2006 Other psychoacti ve substance abuse, uncomplica lucho; snomeddesc ription: Substance abuse; Report Immunity to Registry: Yes; Notes: opiate/suad jolene/benzo ; Not Available [facility] 4 06:58:55 Viral hepatitis B without hepatic coma 375002713 Active 2006 Unspecifie d viral hepatitis B without hepatic coma; snomeddesc ription: Type B viral hepatitis; Report Immunity to Registry: Yes; Notes: core ab pos; s ag neg; s ab neg HBV vL nondetecte d 2016; 2017; Not Available [facility] 4 06:58:55 Fibromyal mika 231542721 Active 2006 Fibromyalg ia; snomeddesc ription: Fibromyalg ia; Report Immunity to Registry: Yes; Notes: Chronic pain multiple/c hronic back pain; Not Available [facility] 4 06:58:56 Chronic hepatitis C 596404376 Active 2006 Chronic hepatitis C without mention [...] [facility] 4 06:58:57 Steatotic liver disease 359782421 Active 2006 Steatosis of liver; snomeddesc ription: Steatosis of liver; Report Immunity to Registry: Yes; Notes: u/s 2021; Fatty (change of) liver, not elsewhere classified ; snomeddesc ription: Steatosis of liver; Report Immunity to Registry: Yes; Notes: u/s 2021; Not Available [facility] 4 06:58:53 Headache 86601431 Active 2008 Headache; snomeddesc ription: Headache; Report Immunity to Registry: Yes; Notes: migraine; Headache; snomeddesc ription: Headache; Report Immunity to Registry: Yes; Notes: migraine; Not Available [facility] 4 06:58:56 Herpesvir us infection 52552358 Active 2009 Herpesvira l infection, unspecifie d; snomeddesc ription: Herpes simplex; Report Immunity to Registry: Yes; Notes: HSV 1 pos serology; HSV 2 neg serology; Not Available [facility] 4 06:58:53 Herpes simplex 20235165 Active 2009 Herpes simplex; snomeddesc ription: Herpes simplex; Report Immunity to Registry: Yes; Notes: HSV 1 pos serology; HSV 2 neg serology; Not Available [facility] 4 06:58:54 Seasonal allergic rhinitis 923409640 Active 2012 Other seasonal allergic rhinitis; snomeddesc ription: Seasonal allergy; Report Immunity to Registry: Yes; Notes: hx nasal congestion ; Not Available [facility] 4 06:58:54 Blood chemistry outside reference range 600588493 Active 2012 Other specified abnormal findings of blood chemistry; snomeddesc ription: Decreased testostero ne level; Report Immunity to Registry: Yes; Notes: hypogoandi sm; Not Available [facility] 4 06:58:55 Testoster one level below reference range 273228286 Active 2012 Decreased testostero ne level; snomeddesc ription: Decreased testostero ne level; Report Immunity to Registry: Yes; Notes: hypogoandi sm; Not Available [facility] 4 06:58:57 Seasonal allergy 155821031 Active 2012 Seasonal allergy; snomeddesc ription: Seasonal allergy; Report Immunity to Registry: Yes; Notes: hx nasal congestion ; Not Available [facility] 4 06:58:58 Loss of appetite 73323861 Active 2012 Anorexia; snomeddesc ription: Loss of appetite; Report Immunity to Registry: Yes; Loss of appetite; snomeddesc ription: Loss of appetite; Report Immunity to Registry: Yes; Not Available [facility] 4 06:58:58 Male hypogonad ism 24089614 Active 2012 Male hypogonadi sm; snomeddesc ription: Male hypogonadi sm; Report Immunity to Registry: Yes; Not Available [facility] 4 06:58:53 Testicula r hypofunct ion 284051026 Active 2012 Other testicular hypofuncti on; snomeddesc ription: Male hypogonadi sm; Report Immunity to Registry: Yes; Not Available [facility] 4 06:58:54 Hyperplas ia of prostate 718132669 Active 2014 Hyperplasi a of prostate, unspecifie d, without urinary obstructio n and other lower urinary symptoms (LUTS); snomeddesc ription: Hyperplasi a of prostate; Report Immunity to Registry: Yes; Hyperplas ia of prostate; snomeddesc ription: Hyperplasi a of prostate; Report Immunity to Registry: Yes; Not Available [facility] 4 06:58:54 Hypertens marj disorder 71297085 Active 2017 Hypertensi ve disorder; snomeddesc ription: Hypertensi ve disorder; Report Immunity to Registry: Yes; Not Available [facility] 4 06:58:56 Essential hypertens ion 12642564 Active 2017 Essential (primary) hypertensi on; snomeddesc ription: Hypertensi ve disorder; Report Immunity to Registry: Yes; Not Available [facility] 4 06:58:57 Lyme disease 98477723 Active 2017 Lyme disease; Report Immunity to Registry: Yes; Notes: tx cefuroxime x14 d (hx all Doxy); Not Available [facility] 4 06:58:56 Onychomyc osis due to dermatoph yte 037420844 Active 2017 Tinea unguium; snomeddesc ription: Onychomyco sis; Report Immunity to Registry: Yes; Notes: feet digits; Not Available [facility] 4 06:58:55 Onychomyc osis 775841765 Active 2017 Onychomyco sis; snomeddesc ription: Onychomyco sis; Report Immunity to Registry: Yes; Notes: feet digits; Not Available [facility] 4 06:58:57 Problem Notes None recorded. Medical Equipment None Reported. Allergies Allergen ID Allergen Name Allergen Category Reaction Reaction Severity Criticality Documentation Date Start Date Code Code System Note Provider Name and Address Organization Details Recorded Time 1345 Product containin g penicilli n (product) medicatio n Not available [facility] available [facility]25 76658 1276 SNOMED Cheryl Levin MD [address] [place] [address], [place], [address] [place] [address] - CHERYL LEVIN MD [facility] 5 12:13:34 714 Reglan medicatio n Not available Not available Not available 10/31/20232012 9230 RxNorm Comme nt: adver se_ev ent_t ype: 70120 8002; ; Not Available [facility] 4 06:50:47 715 Motrin medicatio n Not available Not available Not available 10/31/20232012 95716 8 RxNorm Comme nt: adver se_ev ent_t ype: 75301 8002; ; Not Available [facility] 4 06:50:47 716 doxycycli ne Not available Not available Not available Not available 10/31/20232017 3640 RxNorm Comme nt: adver se_ev ent_t ype: 74316 8002; ; Not Available [facility] 4 06:50:47 Medications Name Sig [...] olate 1 mg tablet TAKE 1 TABLET BY [...] Available fluconazo le 100 mg tablet TOME BAHMAN TABLETA POR V [...] Available nystatin 100,000 unit/mL oral suspensio n TAKE 5 ML (500,000 UNITS) BY MOUTH 4 TIMES DAILY. active Not Available Not Available [...] HORAS CUANDO SEA NECESARI O PARA EL DOLOR-RI LD POR 10 D active Not Available [...] 30; VACCINE_ IND: no; SU_FULL_ NAME: Cheryl scalse; Not Available Not Available Not Available quetiapin e 300 mg tablet TOME 1 TABLETA POR V A ORAL TODOS LOS D AL ACOSTARS E active Not Available Not Available No t Available clindamyc in HCl 300 mg capsule [...] ccal polysacc haride PPV23; SU_FULL_ NAME: Cheryl Palomo yordy; Not Available Not Available Not Available Topamax [...] sam 250 mg tablet TAKE TWO TABLETS ON DAY ONE FOLLOWED BY ONE TABLET FROM DAY TWO UNTIL GONE. active Not Available Not Available No t [...] tramadol 50 mg tablet TAKE 1 TABLET EVERY 12 HOURS IF NEEDED FOR SEVERE [...] Available Liquid Nutrition oral 0 Quantity : 73161; Duration : 30; 0 refill(s ) 09/30 [...] Not Available mirtazapi ne 15 mg tablet TAKE TWO (2) TABLETS BY MOUTH AT BEDTIME FOR 2 WEEKS, THEN REDUCE TO ONE (1) TABLET AT BEDTIME active Not Available Not Available No t Available propranol ol ER 120 mg capsule,2 [...] Available Not Available No t Available ferrous sulfate 325 mg (65 mg iron) tablet,de layed release TAKE 1 TAB BY MOUTH AT NOON AND 1 TAB IN THE EVENING. DO NOT CRUSH, CHEW, OR SPLIT. active Not Available Not Available No t [...] Not Available Not Available Not Available Flulaval 4708-1253 45 mcg (15 mcg x 3)/0.5 mL [...] Not Available Not Available Not Available Afluria 8550-9862 45 mcg (15 mcg x 3)/0.5 mL [...] seasonal , injectab le; SU_FULL_ NAME: Cheryl sclaes; Not Available Not Available Not Available Boost [...] Pneumoco ccal conjugat e PCV20, polysacc haride [id number] conjugat e, adjuvant , PF; Not Available Not Available Not Available Vitals Date Recorded Heart rate Body temperature Body weight Systolic And Diastolic Provider Name and Address Organization Details Last Updated DateTime 10/21/2024 98 /min 98.2 [degF] 12095.26 g 118/97 mm[Hg] Lexis PENDLETON 10/21/2024 12:04:23 Date Recorded Body height Heart rate Respiratory rate Body mass index (BMI) Body weight Systolic And Diastolic Provider Name and Address Organization Details Last Updated DateTime 162.56 cm 81 /min 20 /min 24.9 kg/m2 35004.8 9 g 136/89 mm[Hg] Cheryl Levin MD [address] [place] [address], [place], [address], LYNN LEVIN MD [facility] 5 15:01:34 Date Recorded Heart rate Body mass index (BMI) Body weight Respiratory rate Systolic And Diastolic Provider Name and Address Organization Details Last Updated DateTime 12/30/2024 92 /min 26.1 kg/m2 56081.04 g 16 /min 108/83 mm[Hg] Cheryl Levin MD [address] [facility], [place], [address], LYNN LEVIN MD [facility] 5 16:33:39 Date Recorded Body height Provider Name an d Address Organization Details Last Updated DateTime 12/30/2024 162.56 cm Jany LEVIN MD [facility] 12/30/2024 15:08:38 Date Recorded Body height Heart rate Respiratory rate Body temperature Body mass index (BMI) Body weight Systolic And Diastolic Provider Name and Address Organization Details Last Updated DateTime 162.56 cm 103 /min 18 /min 98.4 [degF] 25.1 kg/m2 61964.4 9 g 110/80 mm[Hg] Aleksandra LEVIN MD [facility] 11:09:16 Date Recorded Heart rate Respiratory rate Body temperature Body mass index (BMI) Body weight Systolic And Diastolic Provider Name and Address Organization Details Last Updated DateTime 89 /min 20 /min 98.1 [degF] 24.5 kg/m2 99678.7 1 g 118/83 mm[Hg] Lexis LEVIN MD [facility] 15:46:27 Date Recorded Body height Provider Name an d Address Organization Details Last Updated DateTime 04/13/2025 162.56 cm Freddy LEVIN MD [facility] 04/13/2025 11:36:06 Social History None recorded. Functional [...] Immunizations Vaccine Type Date Status Note Provider Derrick barragan and Address Organization Details Recorded Time Meningococcal MCV4O 9 completed Not Available Formerly [facility] 10/31/2023 06:54:49 zoster live 9 completed Not Available [facility] 10/31/2023 06:54:50 Influenza, split virus, quadrivalent, preservative 9 completed Not Available [facility] 10/31/2023 06:54:50 Influenza, split virus, quadrivalent, preservative 8 completed Not Available [facility] 10/31/2023 06:54:50 Influenza, split virus, quadrivalent, preservative 0 completed Not Available [facility] 10/31/2023 06:54:50 Past Encounters Encounter ID Performer Location Encounter Start Date Encounter Closed Date Diagnosis/Indication Diagnosis SNOMED-CT Code Diagnosis ICD10 Code Diagnosis IMO Codes Diagnosis Note [id number] Cheryl Levin MD Main Office [address] [place] [address] 05/25/2023 09:48:40 06/27/2023 09:16:16 Human immunodeficiency virus infection 51384747 B20 HIV. Continue Biktarvy 1 tab po [...] /Tivicay.. safe sex. plan of care reviewed [id number] Cheryl Levin MD Main Office [address] [place] [address] 08/24/2023 09:33:00 08/24/2023 10:46:09 Human immunodeficiency virus infection 65453816 B20 HIV. Continue Biktarvy 1 tab po [...] /Tivicay.s afe sex.labs Septemberlan of care reviewed [id number] Cheryl Levin MD Main Office [address] [place] [address] 11/12/2023 11:34:42 11/16/2023 15:00:47 Human immunodeficiency virus infection 38930873 B20 HIV.Contin ue Biktarvy 1 tab po qd.U=Upt aware of PreP availabili ty.condom use.plan of care reviewed Adult [facility] th examination 445502828 Z00.00 [id number] Cheryl Levin MD Main Office [address] [place] [address] 11/21/2023 10:59:43 11/23/2023 14:55:21 [id number] Cheryl Levin MD Main Office [address] [place] [address] 01/14/2024 09:27:39 01/16/2024 13:51:41 [id number] Cheryl Levin MD Main Office [address] [place] [address] 01/16/2024 10:24:39 01/16/2024 11:50:10 Human immunodeficiency virus infection 51527277 B20 HIV.Contin ue Biktarvy 1 tab po qd.U=Upt aware of PreP availabili ty.condom use.labs todayplan of care reviewed Candidiasis of mouth 797 68033 B37.0 nystatin 5cc po qid x 14 days. swish and spit.call with any side effects.ba cterial/fu ngal swab obtained. 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 [id number] Cheryl Levin MD Main Office [address] [place] [address] 02/14/2024 12:00:04 02/14/2024 12:24:19 Human immunodeficiency virus infection 58411908 B20 HIV.Contin ue Biktarvy 1 tab po qd.U=Upt aware of PreP availabili ty.DoxyPEP reviewedco ndom use.labs todayplan of care reviewed Methicilli n resistant Staphylococcus aureus infection 010912611 A49.02 swab culture 01/2024 Candidiasi s of esophagus 32085258 B37.81 sandy glabratafl uconazole 100mg po qd x 14 dayscall with any side effects. Weight loss 48564621 R63 .4 contributi ng factor sandy, MRSA, HIV among othermight benefit from Serostim.w ill review with himG tube [id number] Cheryl Levin MD Main Office [address] [place] [address] 02/21/2024 11:08:05 02/21/2024 12:09:56 Human immunodeficiency virus infection 34464842 B20 HIV.Contin ue Biktarvy 1 tab po qd.complia nce reviewedU= Upt aware of PreP availabili ty.DoxyPEP reviewedco ndom use.labs todayplan of care reviewed Candidiasi s of esophagus 65803811 B37.81 sandy glabratato complete fluconazol e 100mg po bid x 14 days: (10mg/ml) 10ml by G tube bidcall with any side effects. Methicilli n resistant Staphylococcus aureus infection 998822545 A49.02 swab culture urr ently on Bactrim oral suspension (200mg- 40mg/5ml) since 02/15-20ml q 12 hrs G tube x 10 days Cachexia a ssociated with AIDS 679913981 B20 R64 weight loss. frail. progressin g.contribu ting factor sandy, MRSA, HIV among other. G tubeSerost im 6mg sq qd will be prescribed with the goal of helping w weight gain, increase muscle mass gain, and increase enduranceh e has visiting nurse who could assist with daily injections . [id number] Cheryl Levin MD Main Office [address] [place] [address] 02/25/2024 10:24:53 02/25/2024 11:09:27 Human immunodeficiency virus infection 96375497 B20 HIV.Contin ue Biktarvy 1 tab po qd.complia nce reviewedU= Ucondom use.labs todayplan of care reviewed Candidiasi s of esophagus .81 sandy glabratawi ll continue fluconazol e 200 mg po qd x 14 days: (10mg/ml) 10ml by G tube QD;will on next appointmen t for further tx va suppressio n tx.call with any side effects. Cachexia a ssociated with AIDS 499620581 B20 R64 weight loss. frail. juan min g.approved Serostim 6mg sq qd; awaiting delivery to the office. will be prescribed with the goal of helping w weight gain, increase muscle mass gain, and increase enduranceh e has visiting nurse who could assist with daily injections .ensure tidmegace 625 mg qd. Methicilli n resistant Staphylococcus aureus infection 397469444 A49.02 swab culture 01/2024will complete 10 days of Bactrim oral suspension (200mg- 40mg/5ml) since 02/15-20ml q 12 hrs G tube on 02/27/24 [id number] Cheryl Levin MD Main Office [address] [place] [address] 03/14/2024 10:24:00 03/14/2024 10:29:25 Cachexia associated with AIDS 138281424 R64 B20 gained 2 pounds. probably improved sandy esophagiti s 2nd to inhaled steroids.S Tart Serostim 6mg s/c qd abdomen. first dose administer ed today. Tolerated well; goalis to increase weight, endurance and muscle massHe will have PAINT COATING MACHINE OPERATOR and nurse help with daily injections .potential side effects reviewed.t o call with any concernshe will pickle cutter Megace today, and start it as well(G tube) qd to increase apetitte Human immunodeficiency virus infection 63443451 B20 HIV.Contin ue Biktarvy 1 tab po qd.complia nce reviewed Candidiasi s of esophagus .81 sandy glabratawi ll continue 2 more weeks of fluconazol e 200 mg po qd x 14 days: (10mg/ml) 10ml by G tube QD;might benefit from qw suppressio n tx.call with any side effects. [id number] Cheryl Levin MD Main Office [address] [place] [address] 04/18/2024 09:52:00 04/18/2024 11:19:01 Cachexia associated with AIDS 820787606 R64 B20 124 lbs. gained weightcont inue Serostim 6mg s/c qd abdomen. goalis to increase weight, endurance and muscle masscontin ue Megace G tube qdCNA and nurse helping with compliance and tx.potenti al side effects reviewed.t o call with any concerns Human immunodeficiency virus infection 18022973 B20 HIV.Contin ue Biktarvy 1 tab po qd.compljordon nce reviewedla bs today Candidiasi s of esophagus 42824490 B37.81 sandy glabratawi ll continue fluconazol e 200 (10ml) mg G tube qw for suppressio n tx.call with any side effects. Aspiration pneumonia 422 193127 J69.0 get discharge summaryon antibiotic ;eat standing or sitting; [place] [id number] Cheryl Levin MD Main Office [address] [place] [address] 05/20/2024 10:17:53 05/20/2024 12:44:49 Cachexia associated with AIDS 951341918 R64 B20 continue Serostim 6mg s/c qd abdomen. goal is to increase weight, endurance and muscle masscontin ue Megace G tube qd 5cc qdCNA and nurse helping with compliance and tx.potenti al side effects reviewed.t o call with any concerns Human immunodeficiency virus infection 80859250 B20 HIV.Contin ue Biktarvy 1 tab po qd.padmini hoffman reviewedla bs today Candidiasi s of esophagus 87216155 B37.81 sandy glabrataho ld fluconazol e for nowSTART 1 tab po bid x 21 says for esophageal sandy glabrata.c all with any side effects. [id number] Cheryl Levin MD Main Office [address] [place] [address] 06/18/2024 10:10:09 06/18/2024 11:12:33 Cachexia associated with AIDS 847178892 R64 B20 continue Serostim 6mg s/c qd abdomen. goal is to increase weight, endurance and muscle massCNA and nurse helping with compliance and tx.megace on holdpotent ial side effects reviewed.t o call with any concerns Human immunodeficiency virus infection 33405129 B20 HIV.Contin ue Biktarvy 1 tab po qd.padmini hoffman reviewedla bs today Inflammato ry disease of liver 398765483 K75.9 Suspect 2nd to concomitan t medication s. ongoingdo not re-start fluconazol e nor megacenega tive infectious and non-infect ious workupto call or ER if jaundice, abd pain, n/v/d marce huertas History of calculus of kidney 607110635 Z87.442 u/s 05/[address] scan 02/2024hydr ation Aspiration pneumonia 422 304749 J69.0 s/p aspiration on CT AngioNPO per instructio n given to him in hospital; nutrition by G tubes/p (ceftriaxo ne,Azithro ,Flagyl while in Hospital;d ischarged on azithro and cefpodoxim e x 3 days which he completed. leg elevationa void sedating meds as much as possible Deep venou s thrombosis of lower extremity 973237138 I82.409 left lower extremity doppler showed DVT of gastrocnem ius vein;on tx w w Eliquis bid . Pulmonary embolism [address] Angio was positive for Acute lobar PEs/p heparin; ongoing Eliquis bidmed list reviewed.n o drug use for years. not on maintenanc e tx.denies current ETOH use. [id number] Cheryl Levin MD Main Office [address] [place] [address] 07/15/2024 15:10:10 07/15/2024 15:45:30 Cachexia associated with AIDS 484336344 R64 B20 continue Serostim 6mg s/c qd abdomen. goal is to increase weight, endurance and muscle masspotent ial side effects reviewed.t o call with any concerns Human immunodeficiency virus infection 98145540 B20 HIV.Contin ue Biktarvy 1 tab po qd.padmini hoffman reviewedla bs Candidiasi s of esophagus 95139477 B37.81 on clotrimazo le. swish and spit qd Medication monitoring 39 7773160 Z51.81 [id number] Cheryl Levin MD Main Office [address] [facility] [place] [address] 10/21/2024 12:22:54 10/21/2024 16:48:51 Cachexia associated with AIDS 435749636 R64 B20 improvedco ntinue Serostim 6mg s/c qd abdomen. goal is to increase weight, endurance and muscle masspotent ial side effects reviewed.m ay start decreasing dose in 1-2 months if further weight gainon Boost protein shakesto call with any concerns Human immunodeficiency virus infection 66818704 B20 HIV.Contin ue Biktarvy 1 tab po qd.complia nce reviewedla bs Candidiasi s of esophagus 47749366 B37.81 on clotrimazo le. swish and spit qd/BID PRN [id number] Cheryl Levin MD Main Office [address] [facility] [place] [address] 11/25/2024 11:48:55 11/25/2024 14:20:54 Cachexia associated with AIDS 471572203 R64 B20 improvedco ntinue Serostim 6mg s/c [...] with any concerns Human immunodeficiency virus infection 82334263 B20 HIV.Contin ue Biktarvy 1 tab po qd.complia nce reviewedla bs Candidiasi s of esophagus 62618917 B37.81 off/on; recurrento n clotrimazo le. swish and spit qd/BID PRN for suppressio n Insomnia 744662995 G47.0 0 benadryl capsules requested by patient forinsomni a and itchiness as needed.cor rect use reviewed. [id number] Cheryl Levin MD Main Office [address] [facility] [place] [address] 12/30/2024 15:04:38 12/31/2024 09:52:40 Cachexia associated with AIDS 127909496 R64 B20 improvedco ntinue Serostim 6mg s/c [...] with any concerns Human immunodeficiency virus infection 30330539 B20 HIV.Contin ue Biktarvy 1 tab po qd.complia nce reviewedla bs Candidiasi s of esophagus 00276661 B37.81 off/on; recurrento n clotrimazo le. swish and spit /BID/TID PRN for suppressio n [id number] Cheryl Levin MD Main Office [address] [place] [address] 03/09/2025 09:16:22 03/09/2025 10:12:30 Cachexia associated with AIDS 360575008 R64 B20 stable/imp roved.cont inue Serostim 6mg s/c qd abdomen. goal is to increase weight, endurance and muscle masspotent ial side effects reviewed.o n Boost protein shakescont inue megace; plan to stop in the next 2-3 monthsto call with any concerns Human immunodeficiency virus infection 33812214 B20 HIV.Contin ue Biktarvy 1 tab po qd.complia nce reviewedla bs Candidiasi s of esophagus 05184348 B37.81 off/on; recurrento n clotrimazo le. swish and spit /BID/TID PRN for suppressio nSTART Fluconazol e 100mg po qd x 21 days: esophageal sandy; then continue clotrimazo le for suppressio noral swab for sandy/ba cteria obtained Abnormal a nal Papanicolaou smear 247868577 R85.619 286351 Anal PAP sample obtained/p reformed: no abnormalit yGC/chlamy chi rectal done [id number] Cheryl Levin MD Main Office [address] [place] [address] 04/13/2025 10:41:03 04/13/2025 12:37:30 Cachexia associated with AIDS 687339648 R64 B20 stable/imp roved. has gained weight.con tinue Serostim 6mg s/c qd abdomen. goal is to increase weight, endurance and muscle masspotent ial side effects reviewed.o n Boost protein shakeson megace PRNto call with any concerns Human immunodeficiency virus infection 48357991 B20 HIV.Contin ue Biktarvy 1 tab po qd.complia nce reviewedla bshe is aware might start IV med q 6 months and IM cabotegrav ir QOM Candidiasi s of esophagus 83773477 B37.81 off/on; recurrento n clotrimazo le. swish [...] Perry Member ID Guarantor Name 07/20/2025 1 [facility] - DOS ON OR AFTER 2022 - MEDICARE ADVANTAGE [place] & [place] (MEDICARE REPLACEMENT/AD VANTAGE - PPO) Benjamin Fall [id number] [facility] Juan David Notes Date Note Type [...] notify site start date and confirm medication. ROAD PRODUCTION GENERAL MANAGER in room with his consent. Cheryl Levin MD [address] [place] [address], [phone], LYNN LEVIN MD [facility] 10/21/2024 14:34:28 11/25/2024 text/html ROS as noted in the HPI [...] cyst removal in recent weeks. outpatient/day procedure. ROAD PRODUCTION GENERAL MANAGER in room with his consent. 07/2025 HIV VL nondetceted; ALt/AST wnl; eGFR>60; DO5=131 Cheryl Levin MD [address] [place] [address], [phone], LYNN LEVIN MD [facility] 11/26/2024 15:09:42 12/30/2024 text/html ROS as noted in the HPI HIVOn Biktarvy 1 tab po qd.reports daily compliance. denies missing dose.thrush. gets on/off and using clotrimazole to treat/suppress.gaining weight: 120lbs ---145lbs --152 lbsno aspirationgetting serostim daily for cachexia,no side effects.might get G tube removed in February 2025.no hospitalizations since he was last seenmed list reviewed. ROAD PRODUCTION GENERAL MANAGER on vacation in [facility]. came in today with a a friendVL nondetceted;07/2025 HIV VL nondetceted; ALt/AST wnl; eGFR>60; FX4=569 Cheryl Levin MD [address] [place] [address], [phone], LYNN LEVIN MD [facility] 12/30/2024 16:39:33 03/09/2025 text/html ROS as noted in the [facility] HIVOn Biktarvy 1 tab po qd.reports daily compliance. denies missing dose.thrush ongoing. has flareup today.gets on/off and using clotrimazole to treat/suppress.getting serostim daily for cachexia, helpingno side effects.might get G tube removed in February 2025.med list reviewed. will get anal pap VL nondetceted;02/07/2024 HIV Vl=24; AST =28 ALT 109; eGFR=90;07/2025 HIV VL nondetceted; ALt/AST wnl; eGFR>60; QH2=330 Cheryl Levin MD [address] [place] [address], [phone], LYNN LEVIN MD [facility] 03/09/2025 13:13:07 04/13/2025 text/html ROS as noted in the HPI HIVOn Biktarvy 1 tab po qd.Willing to get switched to infusion/cabotegravir injection if he is a candidate. prefers no POhas been choking on certain foods like bread; last episode last week where it disaster recovery manager had help him when he choked.he feels well.thrush ongoing 03/09/25 sandy. he did take the 21 days of fluconazole. fluconazole prn for active tx;gets on/off and using clotrimazole to treat/suppress.weight has been stable. on serostim and protein boost shakes. has been on megace PRN.getting serostim daily for cachexia,no side effects. not hospitalized. no pneumonia.it disaster recovery manager struggling with nurses that go to his home. he missess Biktarvy on weekends when nurses do not show up for visits; his meds are locked and they are accessed and administered by the nurses.pt will request list of meds that pt is currently taking.med list reviewed.EKG ok.7 2024 anal PAP neg for abnormalities; no [id number] VL=24; eGFR>60;02/07/2024 HIV Vl=24; AST =28 ALT 109; eGFR=90;07/2025 HIV VL nondetceted; ALt/AST wnl; eGFR>60; RV7=537 Cheryl Levin MD [address] [place] [address], [phone], LYNN - CHERYL LEVIN MD [facility] 04/15/2025 11:00:52
--- OUTSIDE RECORDS SUMMARY | 2025-07-22 14:12 | XMS_ITS | Clinical Summary ---
Author Organization [facility] Address [address] [place] [address] Care Team Providers Care Auto Fleet Maintenance Manager Name Role Phone Zora Arce PA-C Primary Care Provider [phone] Source Comments PLEASE NOTE, if this patient [...] nasal sprayIndications:As thma, intermittent, uncomplicated Place [address] [place] into the nostril(s) as needed for congestion. [...] features 01/27/2015 Overview (01/27/2015): Has therapist at [facility] HIV (human immunodeficiency virus infection) Chronic [...] Plan of Treatment [place] on file [place] Subscriber Plan / Payer ( fective 2015-Present) Name:Benjamin Fall Relation to Subscriber:Self Name:Benjamin Fall Payer ID:[id number] Group ID:Not on file Type:Medicaid Address: [address] DENTAL Care Teams Auto Fleet Maintenance Manager Relationship Specialty Start Date End Date Zora Arce PA-C [address] [place] [address] PCP - General 11/05/18
== END 2025-07-22 11:26 | disposition home or self-care (01) ==
LOC: HO.US 11:25
PROVIDERS: PCP Student in an Organized Health Care Education/Training Program; Visit Provider Student in an Organized Health Care Education/Training Program
DX: R74.01 Elevation of levels of liver transaminase levels (principal)
CPT/HCPCS: 76700

== ENCOUNTER → 2025-07-22 11:27 | Outpatient (BNV) | payer OTHER, SELFPAY | PROVIDERS: PCP Student in an Organized Health Care Education/Training Program; Visit Provider Radiology Diagnostic Radiology | DX: N20.0 Calculus of kidney (principal); K80.50 Calculus of bile duct without cholangitis or cholecystitis without obstruction; R16.0 Hepatomegaly, not elsewhere classified | CPT/HCPCS: 76700 ==

== ENCOUNTER 2025-08-05 10:04 | Outpatient (AMB) | payer OTHER, SELFPAY ==
--- NOTE | 2025-08-05 10:50 | AM.OFFVISNUR ---
Intake Visit Reasons: Evenity #11 Allergies Seasonal Allergies Allergy (Intermediate, Verified 07/20/25 09:12) Eye Drainage codeine (From Tylenol-Codeine #3) Allergy (Mild, Verified 07/20/25 09:12) Rash levofloxacin (From Levaquin) Allergy (Mild, Verified 07/20/25 09:12) Rash metoclopramide (From Reglan) Allergy (Mild, Verified 07/20/25 09:12) Rash acetaminophen (Tylenol-Codeine #3) Allergy (Unknown, Verified 07/20/25 09:12) Rash Penicillins (PENICILLINS) Allergy (Unknown, Verified 07/20/25 09:12) Rash ibuprofen (From Motrin) Adverse Reaction (Unknown, Verified 07/20/25 09:12) Reflux Office Meds romosozumab-aqqg 210 mg/2.34 mL(105 mg/1.17 mL x2)subcutaneous syringe Performing Provider: Ritu Scott MD Performing Location: [facility] Endocrinology Administered by: Na Croft RN on 08/05/25 10:38 Dose Route Admin Location Dispensed Lot Number Expiration Date [facility] Hooking Machine Operator 210 mg subcut bilateral upper arms 2.34 mL [id number] 12/09/27 50369-226-37 [facility] Total Dispensed Waste 2.34 mL 0 % Comments: Pt accompanied by REFINERY OPERATOR POLYMERIZATION PLANT who interpreted visit. Pt declined distribution lineman. No adverse reactions reported from previous injection. Pt tolerated injection well. Pt scheduled in 4 weeks for next appt. No further questions at this time. Assessment & Plan Assessment & Plan Orders: Orders AMB Romosozumab Injection Patient Supplied Today M81.0 - Age-related osteoporosis without current pathological fracture Coding
--- OUTSIDE RECORDS SUMMARY | 2025-08-05 11:47 | XMS_ITS | Continuity of Care Document ---
Author Organization LYNN WHITE MD [facility], Main Office Address [address] [place] [phone] Assessment No assessment recorded. Plan of Treatment Reminders Order Date Submit Date Provider Last Modified By Organization Details Last Modified Time Details Appointments B20 FOLLOW UP 2025 11:00A M Cheryl Street MD Not available Not available Not available Lab CBC w/ diff [address], [address] [place] [address], [id number], 07/23/2025 11:25:36 electroly dee panel, blood [address], [address] [place] [address], [id number], 07/23/2025 11:25:36 ALT (alanine aminotran sferase), serum or plasma [address], [address] [place] [address], [id number], 07/23/2025 11:25:36 AST/SGOT (aspartat e aminotran sferase), serum or plasma [address], [address] [place] [address], [address], 07/23/2025 11:25:36 CT + NG DNA, PCR, unspecifi ed specimen [address], [address] [place] [address], [address], 07/23/2025 11:25:36 creatinin e w/ estimated GFR (eGFR), serum or plasma [address], [address], 07/23/2025 11:25:36 hepatitis C virus Ab, serum [address] [place] [address], [address], 07/23/2025 11:25:36 HIV-1 RNA, quantitat marj, PCR, serum or plasma [address] [place] [address], [address] [place] [address], [address], 07/23/2025 11:25:36 RPR (rapid plasma reagin), serum [address] [place] [address], [address] [place] [address], [address], 07/23/2025 11:25:36 T-cell regulator y subsets panel, blood [address], [address] [place] [address], [address], 07/23/2025 11:25:36 Referral None recorded. Procedures None recorded. Surgeries None recorded. Imaging None recorded. Medication Orders Biktarvy 50 mg-200 mg-25 mg tablet 2024 [id number], [address] [place], [address], 07/23/2025 11:26:30 Patient TargetsNo targets recorded. Patient InstructionsNo instructions recorded. Reason for Referral None Reported. Problems Name Problem SNOMED Code Status Onset Date Resolution Date Notes Provider Name and Address Organization Details Recorded Time Human immunodef iciency virus infection 30343183 Active 1991 Human immunodefi ciency virus [HIV] disease; snomeddesc ription: Human immunodefi ciency virus infection; Report Immunity to Registry: Yes; Human immunodefi ciency virus infection; snomeddesc ription: Human immunodefi ciency virus infection; Report Immunity to Registry: Yes; Not Available [facility] 4 06:58:53 Anxiety 14028165 Active 1996 Anxiety; snomeddesc ription: Anxiety; Report Immunity to Registry: Yes; Not Available [facility] 4 06:58:54 Insomnia 425936969 Active 1996 Insomnia; Report Immunity to Registry: Yes; Not Available [facility] 4 06:58:57 Anxiety state 134096476 Active 1996 Anxiety state, unspecifie d; snomeddesc ription: Anxiety; Report Immunity to Registry: Yes; Not Available [facility] 4 06:58:57 Depressiv e disorder 43573966 Active 1996 Depressive disorder, not elsewhere classified ; snomeddesc ription: Depressive disorder; Report Immunity to Registry: Yes; Depressiv e disorder; snomeddesc ription: Depressive disorder; Report Immunity to Registry: Yes; Not Available [facility] 4 06:58:58 Arthritis 4683458 Active 1998 Arthritis; snomeddesc ription: Arthritis; Report Immunity to Registry: Yes; Notes: Osteoatrth ris multiple; Not Available [facility] 4 06:58:55 Arthropat hy 874491446 Active 1998 Arthropath y, unspecifie d, site unspecifie d; snomeddesc ription: Arthritis; Report Immunity to Registry: Yes; Notes: Osteoatrth ris multiple; Not Available [facility] 4 06:58:56 Sleep apnea 81699143 Active 1999 Sleep apnea; snomeddesc ription: Sleep apnea; Report Immunity to Registry: Yes; Unspecifi ed sleep apnea; snomeddesc ription: Sleep apnea; Report Immunity to Registry: Yes; Not Available [facility] 4 06:58:55 Seizure 51281658 Active 2000 Seizure; snomeddesc ription: Seizure; Report [...] Not Available [facility] 4 06:58:58 Kidney stone 31059077 Active 2001 Calculus of kidney; snomeddesc ription: Kidney stone; Report Immunity to Registry: Yes; Kidney stone; snomeddesc ription: Kidney stone; Report Immunity to Registry: Yes; Not Available [facility] 4 06:58:54 History of calculus of kidney 487844141 Active 2001 History of calculus of kidney; snomeddesc ription: History of calculus of kidney; Report Immunity to Registry: Yes; Not Available [facility] 4 06:58:54 History of urinary stone 362964989 Active 2001 Personal history of urinary calculi; snomeddesc ription: History of calculus of kidney; Report Immunity to Registry: Yes; Not Available [facility] 4 06:58:56 Asthma 638873021 Active 2006 Asthma; snomeddesc ription: Asthma; Report Immunity to Registry: Yes; Asthma; Report Immunity to Registry: Yes; ReasonDate : 10/13/2019 ; ; Start Date : 10/13/2019 Asthma; snomeddesc ription: Asthma; Report Immunity to Registry: Yes; Not Available [facility] 4 06:58:53 Diarrhea 41875111 Active 2006 Diarrhea; snomeddesc ription: Diarrhea; Report Immunity to Registry: Yes; Diarrhea, unspecifie d; snomeddesc ription: Diarrhea; Report Immunity to Registry: Yes; Not Available [facility] 4 06:58:53 Substance abuse 57149373 Active 2006 Substance abuse; snomeddesc ription: Substance abuse; Report Immunity to Registry: Yes; Notes: opiate/suad jolene/benzo ; Not Available [facility] 4 06:58:53 Fibromyos itis 18039650 Active 2006 Myalgia and myositis, unspecifie d; snomeddesc ription: Fibromyalg ia; Report Immunity to Registry: Yes; Notes: Chronic pain multiple/c hronic back pain; Not Available [facility] 4 06:58:53 Type B viral hepatitis 42124056 Active 2006 Type B viral hepatitis; snomeddesc ription: Type B viral hepatitis; Report Immunity to Registry: Yes; Notes: core ab pos; s ag neg; s ab neg HBV vL nondetecte d 2016; 2017; Not Available [facility] 4 06:58:54 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 45746299 Active 2006 Other psychoacti ve substance abuse, uncomplica lucho; snomeddesc ription: Substance abuse; Report Immunity to Registry: Yes; Notes: opiate/suad jolene/benzo ; Not Available [facility] 4 06:58:55 Viral hepatitis B without hepatic coma 808010176 Active 2006 Unspecifie d viral hepatitis B without hepatic coma; snomeddesc ription: Type B viral hepatitis; Report Immunity to Registry: Yes; Notes: core ab pos; s ag neg; s ab neg HBV vL nondetecte d 2016; 2017; Not Available [facility] 4 06:58:55 Fibromyal mika 419222474 Active 2006 Fibromyalg ia; snomeddesc ription: Fibromyalg ia; Report Immunity to Registry: Yes; Notes: Chronic pain multiple/c hronic back pain; Not Available [facility] 4 06:58:56 Chronic hepatitis C 564963107 Active 2006 Chronic hepatitis C without mention of hepatic coma; snomeddesc ription: Chronic hepatitis C; Report Immunity to Registry: Yes; Notes: F0 2011; CC IL28; g1a EOT 06/21/14 s/p 24 weeks tx Ribapak 1200mg po qd and Sovaldi 24 weeks SVR 12/23 HCV VL neg ; 12/2021 F2 ; Chronic hepatitis C; snomeddesc ription: Chronic hepatitis C; Report Immunity to Registry: Yes; Notes: F0 2011; CC IL28; g1a EOT 06/21/14 s/p 24 weeks tx Ribapak 1200mg po qd and Sovaldi 24 weeks SVR 12/23 HCV VL neg 2015;2017; 12/2021 F2 ; Not Available [facility] 4 06:58:57 Steatotic liver disease 642585262 Active 2006 Steatosis of liver; snomeddesc ription: Steatosis of liver; Report Immunity to Registry: Yes; Notes: u/s 2021; Fatty (change of) liver, not elsewhere classified ; snomeddesc ription: Steatosis of liver; Report Immunity to Registry: Yes; Notes: u/s 2021; Not Available [facility] 4 06:58:53 Headache 27734621 Active 2008 Headache; snomeddesc ription: Headache; Report Immunity to Registry: Yes; Notes: migraine; Headache; snomeddesc ription: Headache; Report Immunity to Registry: Yes; Notes: migraine; Not Available [facility] 4 06:58:56 Herpesvir us infection 89686695 Active 2009 Herpesvira l infection, unspecifie d; snomeddesc ription: Herpes simplex; Report Immunity to Registry: Yes; Notes: HSV 1 pos serology; HSV 2 neg serology; Not Available [facility] 4 06:58:53 Herpes simplex 89262383 Active 2009 Herpes simplex; snomeddesc ription: Herpes simplex; Report Immunity to Registry: Yes; Notes: HSV 1 pos serology; HSV 2 neg serology; Not Available [facility] 4 06:58:54 Seasonal allergic rhinitis 441870455 Active 2012 Other seasonal allergic rhinitis; snomeddesc ription: Seasonal allergy; Report Immunity to Registry: Yes; Notes: hx nasal congestion ; Not Available [facility] 4 06:58:54 Blood chemistry outside reference range 917663300 Active 2012 Other specified abnormal findings of blood chemistry; snomeddesc ription: Decreased testostero ne level; Report Immunity to Registry: Yes; Notes: hypogoandi sm; Not Available [facility] 4 06:58:55 Testoster one level below reference range 338418880 Active 2012 Decreased testostero ne level; snomeddesc ription: Decreased testostero ne level; Report Immunity to Registry: Yes; Notes: hypogoandi sm; Not Available [facility] 4 06:58:57 Seasonal allergy 931062828 Active 2012 Seasonal allergy; snomeddesc ription: Seasonal allergy; Report Immunity to Registry: Yes; Notes: hx nasal congestion ; Not Available [facility] 4 06:58:58 Loss of appetite 08490083 Active 2012 Anorexia; snomeddesc ription: Loss of appetite; Report Immunity to Registry: Yes; Loss of appetite; snomeddesc ription: Loss of appetite; Report Immunity to Registry: Yes; Not Available [facility] 4 06:58:58 Male hypogonad ism 63297682 Active 2012 Male hypogonadi sm; snomeddesc ription: Male hypogonadi sm; Report Immunity to Registry: Yes; Not Available [facility] 4 06:58:53 Testicula r hypofunct ion 696025903 Active 2012 Other testicular hypofuncti on; snomeddesc ription: Male hypogonadi sm; Report Immunity to Registry: Yes; Not Available [facility] 4 06:58:54 Hyperplas ia of prostate 524575953 Active 2014 Hyperplasi a of prostate, unspecifie d, without urinary obstructio n and other lower urinary symptoms (LUTS); snomeddesc ription: Hyperplasi a of prostate; Report Immunity to Registry: Yes; Hyperplas ia of prostate; snomeddesc ription: Hyperplasi a of prostate; Report Immunity to Registry: Yes; Not Available [facility] 4 06:58:54 Hypertens marj disorder 09105187 Active 2017 Hypertensi ve disorder; snomeddesc ription: Hypertensi ve disorder; Report Immunity to Registry: Yes; Not Available [facility] 4 06:58:56 Essential hypertens ion 78003546 Active 2017 Essential (primary) hypertensi on; snomeddesc ription: Hypertensi ve disorder; Report Immunity to Registry: Yes; Not Available [facility] 4 06:58:57 Lyme disease 70367800 Active 2017 Lyme disease; Report Immunity to Registry: Yes; Notes: tx cefuroxime x14 d (hx all Doxy); Not Available [facility] 4 06:58:56 Onychomyc osis due to dermatoph yte 867359984 Active 2017 Tinea unguium; snomeddesc ription: Onychomyco sis; Report Immunity to Registry: Yes; Notes: feet digits; Not Available [facility] 4 06:58:55 Onychomyc osis 344803737 Active 2017 Onychomyco sis; snomeddesc ription: Onychomyco sis; Report Immunity to Registry: Yes; Notes: feet digits; Not Available [facility] 4 06:58:57 Problem Notes None recorded. Medical Equipment None Reported. Allergies Allergen ID Allergen Name Allergen Category Reaction Reaction Severity Criticality Documentation Date Start Date Code Code System Note Provider Name and Address Organization Details Recorded Time 1345 Product containin g penicilli n (product) medicatio n Not available Not available [facility] 04/13/[address] MD [address] [place] [address], [phone] [place] [address] - [address] MD [facility] 5 12:13:34 714 Reglan medicatio n Not available Not available Not available 10/31/20232012 9230 RxNorm Comme nt: adver se_ev ent_t ype: 59435 8002; ; Not Available [facility] 4 06:50:47 715 Motrin medicatio n Not available Not available Not available 10/31/2023201248 8 RxNorm Comme nt: adver se_ev ent_t ype: 92861 8002; ; Not Available [facility] 4 06:50:47 716 doxycycli ne Not available Not available Not available Not available 10/31/20232017 3640 RxNorm Comme nt: adver se_ev ent_t ype: 61283 8002; ; Not Available [facility] [...] HORAS CUANDO SEA NECESARI O PARA EL DOLOR-ND LD POR 10 D active Not Available [...] 30; VACCINE_ IND: no; SU_FULL_ NAME: Cheryl Martssuan l; Not Available Not Available Not Available [...] qd; VACCINE_ IND: no; SU_FULL_ NAME: Cheryl Stacia [...] Available Liquid Nutrition oral 0 Quantity : 69606; Duration : 30; 0 refill(s ) 09/30 [...] yordy; Not Available Not Available Not Available cyclobenz [...] 30; VACCINE_ IND: no; SU_FULL_ NAME: Cheryl sacles; Not Available Not Available Not Available ferrous [...] NAME: Meningoc occal MCV4O; SU_FULL_ NAME: Cheryl Martsusan scales; VIS_DATE : 14:17:37 .0; Not Available [...] Not Available Not Available Not Avai labradha [facility] 60 mcg (15 mcg x 4)/0.5 [...] active Not Available Not Available Not Available [facility] 60 mcg (15 mcg x 4)/0.5 mL intramusc ular susp. quadriva lent Quantity : ; 0 refill(s ) 2018 active VACCINE_ IND: yes; VACCINE_ NAME: influenz a, injectab le, quadriva lent; SU_FULL_ NAME: Cheryl Palomo yordy; VIS_DATE : 05:00:00 .0; Not Available Not Available Not Available [facility] 60 mcg (15 mcg x 4)/0.5 [...] Pneumoco ccal conjugat e PCV20, polysacc haride [id number] conjugat e, adjuvant , PF; Not Available Not Available Not Available Vitals Date Recorded Body height Heart rate Body temperature Body mass index (BMI) Body weight Systolic And Diastolic Provider Name and Address Organization Details Last Updated DateTime 5 162.56 cm 90 /min 98 [degF] 26.8 kg/m2 91965.4 1 g 137/78 mm[Hg] Jany PENDLETON 5 11:25:24 Social History None recorded. Functional Status None [...] Time Meningococcal MCV4O 9 completed Not Available [facility] 10/31/2023 06:54:49 zoster live 9 completed Not Available [facility] 10/31/2023 06:54:50 Influenza, split virus, quadrivalent, preservative 9 completed Not Available [facility] 10/31/2023 06:54:50 Influenza, split virus, quadrivalent, preservative 8 completed Not Available [facility] 10/31/2023 06:54:50 Influenza, split virus, quadrivalent, preservative 09/24/202 0 completed Not Available [facility] 10/31/2023 06:54:50 Influenza, split virus, trivalent, PF [address] MD [address] [place] [address], [phone], [facility] [address] [facility] 07/23/2025 21:14:01 Past Encounters Encounter ID Performer Location Encounter Start Date Encounter Closed Date Diagnosis/Indication Diagnosis SNOMED-CT Code Diagnosis ICD10 Code Diagnosis IMO Codes Diagnosis Note [address] MD Main Office [address] [place] [phone] 07/23/2025 11:10:39 07/23/2025 12:08:01 Cachexia associated with AIDS 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 has gained weight.STO P Serostim and Megace in setting of Kaposi diagnosis; GH could make it contribute to worsening. on Boost protein shakesto call with any concerns Human immunodeficiency virus infection 53817060 B20 HIV.Contin ue Biktarvy 1 tab po qd.complia nce reviewedla bsflu vaccine administer ed Candidiasi s of esophagus 44354343 B37.81 off/on; recurrent. on clotrimazo le. 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 Has PE on tx.usually colonizer. no need to tx Mycobacter ia for now. no pulmonary sx and no CT pulmonary findings.t o call if cough, hemoptysis , fever, weight loss, chills, sweats Pulmonary embolism [address] positives/ p heparin; ongoing Eliquis bidmed list reviewed.n o drug use for years. not on maintenanc e tx.denies current ETOH use. 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 60991 07/07 biopsy - left elbowdiagn osis reviewed with pt and PCAon HIV treatmentr efer to Oncology - importance of f/u evaluation reviewed.f /u Dermatolog y - pt' PEDIATRIC DIETICIAN reports pt has f/u Health Concerns Section Related Observation LastModified by Organization Detai ls LastModified Time None Recorded Concern Status LastModified by Organization Details LastModified Time None Recorded Payers Encounter Date Sequence Insurance Name Policy Number Policy Perry Covered Member ID Perry Member ID Guarantor Name 07/23/2025 1 [facility] - DOS ON OR AFTER 2022 - MEDICARE [place]VANTAGE [place] (MEDICARE REPLACEMENT/AD VANTAGE - PPO) Benjamin Juan David [id number] Benjamin Juan David Notes Date Note Type Note Provider Name and Address Organization Details Recorded Time 07/23/2025 text/html ROS as noted in the HPI HIVOn Biktarvy 1 tab po qd. compliance. he feels well.no thrush. not on antifungal at current time; no recurrence. has gained weight 117-->157 lbsmegace PRN. protein shakes.feels goodeating PO; denies aspiration. stronger no hospitalization for the past 5 months.no pneumonia dx nor pneumonia sx.mycobacteria gordonaee. pt has no sx. no hemoptysis. no cough. has gained weight. no chills. no sweats. CT Scan 04/2025 PE; no pneumonia; no mycobacterial changes.med list reviewed. 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 saw Dermatology for biopsy ([facility]). pt and PEDIATRIC DIETICIAN says they did not know of skin biopsy results; but theyd o report have f/u w Dermatology. 2024 anal PAP neg for abnormalities; no [id number] VL=24; eGFR>60;02/07/2024 HIV Vl=24; AST =28 ALT 109; eGFR=90;07/2025 HIV VL nondetected; ALt/AST wnl; eGFR>60; KU8=[address] MD [address] [place] [address], [phone], [facility] [address] [facility] 07/23/2025 21:14:14
--- OUTSIDE RECORDS SUMMARY | 2025-08-05 11:47 | XMS_ITS | Clinical Summary ---
Author Organization [facility] Address [address] [address] Phone Care Team Providers Care Section Repairer Name Role Phone Gaetano Gibbons MD Primary Care Provider [phone] Social History Tobacco Use Types Packs/Day Years [...] Medical Devices Not on file Care Teams Section Repairer Relationship Specialty Start Date End Date Gaetano Gibbons MD [email or web address] PCP - General Family Medicine 07/02/23 Additional Source Comments The information contained in this document represents components of the legal health record. It is not the complete legal health record.[facility]
--- OUTSIDE RECORDS SUMMARY | 2025-08-05 11:47 | XMS_ITS | Data Portability ---
Author Organization LYNN WHITE MD [facility], Main Office Address [address] [place] [id number] Assessment No assessment recorded. Plan of Treatment Reminders Order Date Submit Date Provider Last Modified By Organization Details Last Modified Time Details Appointments B20 FOLLOW UP 2025 11:00A Wilmer Levin MD Not available Not available Not available Lab CBC w/ diff [address], [address] [place] [address], [id number], 07/23/2025 11:25:36 electrol ytes panel, blood [address], [address] [place] [address], [address], 07/23/2025 11:25:36 ALT (alanine aminotra nsferase ), serum or plasma [address], [address] [place] [address], [address], 07/23/2025 11:25:36 AST/SGOT (asparta te aminotra nsferase ), serum or plasma [address], [address] [place] [address], [address], 07/23/2025 11:25:36 CT + NG DNA, PCR, unspecif ied specimen [address], [address] [place] [address], [id number], 07/23/2025 11:25:36 creatini ne w/ estimate d GFR (eGFR), serum or plasma [address] [place] [address], [address], 07/23/2025 11:25:36 hepatiti s C virus Ab, serum [address] [place] [address], [address], 07/23/2025 11:25:36 HIV-1 RNA, quantita tive, PCR, serum or plasma [address] [place] [address], [address] [place] [address], [address], 07/23/2025 11:25:36 RPR (rapid plasma reagin), serum [address] [place] [address], [address], 07/23/2025 11:25:36 T-cell regulato ry subsets panel, blood [address] [place] [address], [address], 07/23/2025 11:25:36 HPV DNA, high-ris k, anal [address] [place] [address], [address], 03/09/2025 16:00:58 pap, LB, anal [address] [place] [address], [address], 03/09/2025 16:01:16 chlamydi a + gonorrhe a DNA panel, unspecif ied specimen [address] [place], [place] [address], [place], [address], 03/09/2025 16:00:03 culture, throat [address], [address] [place] [address], [address], 03/09/2025 16:02:43 Referral None recorded . Procedures None recorded . Surgeries None recorded . Imaging None recorded . Medication Orders Biktarvy 50 mg-200 mg-25 mg tablet 2024 025 [facility]20[facility], [address] [place], [address], 07/23/2025 11:26:30 clotrima zole 10 mg klaudia 2024 025 [facility], [address] [place], [address], 04/13/2025 20:54:02 fluconaz ole 100 mg tablet 2024 025 [facility], [address] [place], [address], 04/13/2025 20:54:03 Biktarvy 50 mg-200 mg-25 mg tablet 2024 025 cmartorell [facility]armacy #2071, [address] [place], [address], 04/14/2025 17:57:16 clotrima zole 10 mg klaudia 2024 025 [facility]20[facility], [address] [place], [address], 03/09/2025 10:06:11 fluconaz ole 100 mg tablet 2024 025 [facility], [address] [place], [address], 03/09/2025 10:06:10 Biktarvy 50 mg-200 mg-25 mg tablet 2024 025 [facility] [address] [place], [address], 03/09/2025 13:04:37 clotrima zole 10 mg klaudia 2024 025 [facility] [address] [place] [address], [address], 12/30/2024 16:32:25 Biktarvy 50 mg-200 mg-25 mg tablet 2024 025 [facility] [address] [place], [address], 12/30/2024 16:32:25 clotrima zole 10 mg klaudia 2024 025 [facility] [address] [place], [address], 11/25/2024 13:20:54 Benadryl 25 mg capsule 2024 025 [facility] [address] [place], [address], 11/25/2024 13:20:55 Biktarvy 50 mg-200 mg-25 mg tablet 2024 025 [facility] [address] [place], [address], 11/25/2024 13:20:54 Patient TargetsNo targets recorded. Patient InstructionsNo instructions recorded. Reason for Referral None Reported. Results Created Date Observation Date Name Description Value Unit Range Abnormal Flag Note LastModifiedBy Organization Detail LastModifiedTime 03/09/20 25 03/09/2025 CHLAM YCHI GIFFORD OMATI S AND NEISS LISAIA ABEL COULTER STUDY .note See Note Origi nal Order ing Provi carlito: DELGADO JORDON T MARTO CHRISTOPHER [facility] - [address], [place], [place] [address] Not Available [facility] [address] [place] [address], [address], 03/10/2025 08:50:56 03/09/20 25 03/09/2025 CHLAM YDIA TRACH OMATI S AND NEISS ERIA GONOR RHOEA E MOLEC ULAR STUDY neisseria gonorrhoeae PCR Negati ve negati ve Not Available [facility] [address] [place] [address], [address], 03/10/2025 08:50:56 03/09/20 25 03/09/2025 CHLAM YDIA TRACH OMATI S AND NEISS ERIA GONOR RHOEA E MOLEC ULAR STUDY chlamydia trachomatis PCR Negati ve negati ve Not Available [facility] [address] [place] [address], [address], 03/10/2025 08:50:56 03/09/20 25 03/09/2025 CULTU RE MISCE LLANE OUS .note See Note Origi nal Order ing Provi carlito: DELGADO IA T MARTO CHRISTOPHER [facility] - [address] [facility], [place] [address], [facility] [place] [address] Not Available [facility] [address] [place] [address], [address], 03/10/2025 11:21:36 03/09/20 25 03/09/2025 CULTU RE MISCE LLANE OUS miscellaneou s culture YEAST abnormal Yeast Not Available [facility] [address] [place] [address], [address], 03/10/2025 11:21:36 03/09/20 25 03/09/2025 CULTU RE MISCE LLANE OUS .note See Note Origi nal Order ing Provi carlito: DELGADO IA T MARTO CHRISTOPHER [facility] - [address] [facility], [facility], [place] [phone] Not Available [facility] [address] [place] [address], [address], 03/10/2025 11:26:38 03/09/20 25 03/09/2025 CULTU RE MISCE LLANE OUS miscellaneou s culture YEAST abnormal Yeast Not Available [facility] [address] [place], [address], 03/10/2025 11:26:38 03/09/20 25 03/09/2025 CULTU RE MISCE LLANE OUS .note See Note Origi nal Order ing Provi carlito: DELGADO TAYLORO CHRISTOHPER [facility] - [address] [facility], [facility], [place] [address] Not Available [facility] [address] [place], [address], 03/10/2025 13:02:10 03/09/20 25 03/09/2025 CULTU RE MISCE LLANE OUS miscellaneou s culture YEAST abnormal Yeast Not Available [facility] [address] [place] [address], [address], 03/10/2025 13:02:10 03/09/20 25 03/09/2025 CULTU RE FUNGU S, OTHER THAN SKIN HAIR OR NAILS .note See Note Origi nal Order ing Provi carlito: DELGADO Rogel MARTO CHRISTOPHER [facility] - [address] [facility], [facility], [place] [address] Not Available [facility] [address] [place] [address], [address], 03/16/2025 14:09:09 03/09/20 25 03/09/2025 CULTU RE FUNGU S, OTHER THAN SKIN HAIR OR NAILS culture, fungus YEAST abnormal Yeast Not Available [facility] [address] [place], [address], 03/16/2025 14:09:09 03/09/20 25 03/09/2025 THINP REP CYTOL OGY WITH HPV, ANAL .note See Note Origi nal Order ing Provi carlito: DELGADO Rogel MARTO CHRISTOPHER [facility] - [address] [facility], [facility], [place] [address] Not Available [facility] [address] [place], [address], 03/17/2025 14:23:11 03/09/20 25 03/09/2025 THINP REP CYTOL OGY WITH HPV, ANAL scan result See Scanne d Result Not Available [facility] [address] [place], [address], 03/17/2025 14:23:11 03/09/20 25 03/09/2025 NON-G YNECO LOGIC CYTOL OGY .note See Note Origi nal Order ing Provi carlito: DELGADO IA T MARTO CHRISTOPHER [facility] - [address] [facility], [place] [address], [place] [address] Not Available [facility] [address] [place], [address], 03/17/2025 14:32:10 03/09/20 25 03/09/2025 NON-G YNECO LOGIC CYTOL OGY final diagnosis Specim en sent to [facility] Smiley cook for Anal cytolo gy with [...] jurgen cteri stics were deter mined by [facility] in a toribio r consi stent with CLIA requi remen ts. This test has not been clear ed or appro deborah by the U.S. Food and Drug Admin istra tion Repor t tamra d elect terry correia by: Qi judge M.D. on 16 Mar 2025 at 13:55 at [facility], [address], [place] (CLIA [id number] ) HPV Anal Detec t/Gen otypi ng, [...] ed in the diane xt of a [facility] Non-G YN Cytol ogy case; this resul t shoul d be inter prete d withi n the diane xt of the Non-G YN cytol ogy repor t. Resul lucho 12 Mar 2025 at 17:00 [facility], [address], [facility] (CLIA [id number] ) Full repor t attac hed. Elect terry barboza d by Sintia wu MD on 025 at 2:31 PM Not Available [facility] [address] [place], [address], 03/17/2025 14:32:10 03/09/20 25 03/09/2025 NON-G YNECO LOGIC CYTOL OGY disclaimer Unless otherw ise specif ied, all tissue is 10% NB formal in fixed and paraff in embedd ed. Techn ical cytop athol ogy servi surekha provi ded by Miguelina Alexander [facility], at [address] [place] [address] (CLIA # [id number] /Joe orourke MD, Medic al Direc tor.) Not Available [facility] [address] [place], [address], 03/17/2025 14:32:10 03/09/20 25 03/09/2025 CULTU RE FUNGU S, OTHER THAN SKIN HAIR OR NAILS .note See Note Origi nal Order ing Provi carlito: DELGADO Rogel MARTO CHRISTOPHER [facility] - [address] [facility], [address], [facility] [address] Not Available [facility] [address] [place], [address], 03/18/2025 08:10:44 03/09/2003/09/2025 CULTU RE FUNGU S, OTHER THAN SKIN HAIR OR NAILS culture, fungus CANDID A ALBICA NS abnormal Julianna da albic ans Edite d resul t: Previ ously repor lucho as Yeast on 025 at 1407 EDT. Not Available [facility] [address] [place], [address], 03/18/2025 08:10:44 06/19/20 25 04/23/2025 imagi ng/di agnos tic resul t No observ ation record ed. [email or web address] Not Available 2024 16:37:26 Result Notes None recorded. 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 Human immunodefi ciency virus [HIV] disease; snomeddesc ription: Human immunodefi ciency virus infection; Report Immunity to Registry: Yes; Human immunodefi ciency virus infection; snomeddesc ription: Human immunodefi ciency virus infection; Report Immunity to Registry: Yes; Not Available [facility] 4 06:58:53 Anxiety 73424366 Active 1996 Anxiety; snomeddesc ription: Anxiety; Report Immunity to Registry: Yes; Not Available [facility] 4 06:58:54 Insomnia 295027665 Active 1996 Insomnia; Report Immunity to Registry: Yes; Not Available [facility] 4 06:58:57 Anxiety state 418074787 Active 1996 Anxiety state, unspecifie d; snomeddesc ription: Anxiety; Report Immunity to Registry: Yes; Not Available [facility] 4 06:58:57 Depressiv e disorder 30034535 Active 1996 Depressive disorder, not elsewhere classified ; snomeddesc ription: Depressive disorder; Report Immunity to Registry: Yes; Depressiv e disorder; snomeddesc ription: Depressive disorder; Report Immunity to Registry: Yes; Not Available [facility] 4 06:58:58 Arthritis 9483213 Active 1998 Arthritis; snomeddesc ription: Arthritis; Report Immunity to Registry: Yes; Notes: Osteoatrth ris multiple; Not Available [facility] 4 06:58:55 Arthropat hy 533903177 Active 1998 Arthropath y, unspecifie d, site unspecifie d; snomeddesc ription: Arthritis; Report Immunity to Registry: Yes; Notes: Osteoatrth ris multiple; Not Available [facility] 4 06:58:56 Sleep apnea 73607747 Active 1999 Sleep apnea; snomeddesc ription: Sleep apnea; Report Immunity to Registry: Yes; Unspecifi ed sleep apnea; snomeddesc ription: Sleep apnea; Report Immunity to Registry: Yes; Not Available [facility] 4 06:58:55 Seizure 92787892 Active 2000 Seizure; snomeddesc ription: Seizure; Report [...] to Registry: Yes; Not Available [facility] 4 06:58:58 Kidney stone 07701737 Active 2001 Calculus of kidney; snomeddesc ription: Kidney stone; Report Immunity to Registry: Yes; Kidney stone; snomeddesc ription: Kidney stone; Report Immunity to Registry: Yes; Not Available [facility] 4 06:58:54 History of calculus of kidney 304562309 Active 2001 History of calculus of kidney; snomeddesc ription: History of calculus of kidney; Report Immunity to Registry: Yes; Not Available [facility] 4 06:58:54 History of urinary stone 249004087 Active 2001 Personal history of urinary calculi; snomeddesc ription: History of calculus of kidney; Report Immunity to Registry: Yes; Not Available [facility] 4 06:58:56 Asthma 606523769 Active 2006 Asthma; snomeddesc ription: Asthma; Report Immunity to Registry: Yes; Asthma; Report Immunity to Registry: Yes; ReasonDate : 10/13/2019 ; ; Start Date : 10/13/2019 Asthma; snomeddesc ription: Asthma; Report Immunity to Registry: Yes; Not Available [facility] 4 06:58:53 Diarrhea 05150967 Active 2006 Diarrhea; snomeddesc ription: Diarrhea; Report Immunity to Registry: Yes; Diarrhea, unspecifie d; snomeddesc ription: Diarrhea; Report Immunity to Registry: Yes; Not Available [facility] 4 06:58:53 Substance abuse 14971592 Active 2006 Substance abuse; snomeddesc ription: Substance abuse; Report Immunity to Registry: Yes; Notes: opiate/suad jolene/benzo ; Not Available [facility] 4 06:58:53 Fibromyos itis 35200638 Active 2006 Myalgia and myositis, unspecifie d; snomeddesc ription: Fibromyalg ia; Report Immunity to Registry: Yes; Notes: Chronic pain multiple/c hronic back pain; Not Available [facility] 4 06:58:53 Type B viral hepatitis 47695928 Active 2006 Type B viral hepatitis; snomeddesc ription: Type B viral hepatitis; Report Immunity to Registry: Yes; Notes: core ab pos; s ag neg; s ab neg HBV vL nondetecte d 2016; 2017; Not Available [facility] 4 06:58:54 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 72361054 Active 2006 Other psychoacti ve substance abuse, uncomplica lucho; snomeddesc ription: Substance abuse; Report Immunity to Registry: Yes; Notes: opiate/suad jolene/benzo ; Not Available [facility] 4 06:58:55 Viral hepatitis B without hepatic coma 706673915 Active 2006 Unspecifie d viral hepatitis B without hepatic coma; snomeddesc ription: Type B viral hepatitis; Report Immunity to Registry: Yes; Notes: core ab pos; s ag neg; s ab neg HBV vL nondetecte d 2016; 2017; Not Available [facility] 4 06:58:55 Fibromyal mika 818562149 Active 2006 Fibromyalg ia; snomeddesc ription: Fibromyalg ia; Report Immunity to Registry: Yes; Notes: Chronic pain multiple/c hronic back pain; Not Available [facility] 4 06:58:56 Chronic hepatitis C 656505532 Active 2006 Chronic hepatitis C without mention [...] 2015;2017; 12/2021 F2 ; Not Available [facility] 4 06:58:57 Steatotic liver disease 032616124 Active 2006 Steatosis of liver; snomeddesc ription: Steatosis of liver; Report Immunity to Registry: Yes; Notes: u/s 2021; Fatty (change of) liver, not elsewhere classified ; snomeddesc ription: Steatosis of liver; Report Immunity to Registry: Yes; Notes: u/s 2021; Not Available [facility] 4 06:58:53 Headache 80191302 Active 2008 Headache; snomeddesc ription: Headache; Report Immunity to Registry: Yes; Notes: migraine; Headache; snomeddesc ription: Headache; Report Immunity to Registry: Yes; Notes: migraine; Not Available [facility] 4 06:58:56 Herpesvir us infection 26436514 Active 2009 Herpesvira l infection, unspecifie d; snomeddesc ription: Herpes simplex; Report Immunity to Registry: Yes; Notes: HSV 1 pos serology; HSV 2 neg serology; Not Available [facility] 4 06:58:53 Herpes simplex 48312400 Active 2009 Herpes simplex; snomeddesc ription: Herpes simplex; Report Immunity to Registry: Yes; Notes: HSV 1 pos serology; HSV 2 neg serology; Not Available [facility] 4 06:58:54 Seasonal allergic rhinitis 641537541 Active 2012 Other seasonal allergic rhinitis; snomeddesc ription: Seasonal allergy; Report Immunity to Registry: Yes; Notes: hx nasal congestion ; Not Available [facility] 4 06:58:54 Blood chemistry outside reference range 786656895 Active 2012 Other specified abnormal findings of blood chemistry; snomeddesc ription: Decreased testostero ne level; Report Immunity to Registry: Yes; Notes: hypogoandi sm; Not Available [facility] 4 06:58:55 Testoster one level below reference range 762285642 Active 2012 Decreased testostero ne level; snomeddesc ription: Decreased testostero ne level; Report Immunity to Registry: Yes; Notes: hypogoandi sm; Not Available [facility] 4 06:58:57 Seasonal allergy 122611249 Active 2012 Seasonal allergy; snomeddesc ription: Seasonal allergy; Report Immunity to Registry: Yes; Notes: hx nasal congestion ; Not Available [facility] 4 06:58:58 Loss of appetite 92485506 Active 2012 Anorexia; snomeddesc ription: Loss of appetite; Report Immunity to Registry: Yes; Loss of appetite; snomeddesc ription: Loss of appetite; Report Immunity to Registry: Yes; Not Available [facility] 4 06:58:58 Male hypogonad ism 63733650 Active 2012 Male hypogonadi sm; snomeddesc ription: Male hypogonadi sm; Report Immunity to Registry: Yes; Not Available [facility] 4 06:58:53 Testicula r hypofunct ion 908884438 Active 2012 Other testicular hypofuncti on; snomeddesc ription: Male hypogonadi sm; Report Immunity to Registry: Yes; Not Available [facility] 4 06:58:54 Hyperplas ia of prostate 703188789 Active 2014 Hyperplasi a of prostate, unspecifie d, without urinary obstructio n and other lower urinary symptoms (LUTS); snomeddesc ription: Hyperplasi a of prostate; Report Immunity to Registry: Yes; Hyperplas ia of prostate; snomeddesc ription: Hyperplasi a of prostate; Report Immunity to Registry: Yes; Not Available [facility] 4 06:58:54 Hypertens marj disorder 86915098 Active 2017 Hypertensi ve disorder; snomeddesc ription: Hypertensi ve disorder; Report Immunity to Registry: Yes; Not Available [facility] 4 06:58:56 Essential hypertens ion 58741763 Active 2017 Essential (primary) hypertensi on; snomeddesc ription: Hypertensi ve disorder; Report Immunity to Registry: Yes; Not Available [facility] 4 06:58:57 Lyme disease 79088970 Active 2017 Lyme disease; Report Immunity to Registry: Yes; Notes: tx cefuroxime x14 d (hx all Doxy); Not Available [facility] 4 06:58:56 Onychomyc osis due to dermatoph yte 986781847 Active 2017 Tinea unguium; snomeddesc ription: Onychomyco sis; Report Immunity to Registry: Yes; Notes: feet digits; Not Available [facility] 4 06:58:55 Onychomyc osis 226320177 Active 2017 Onychomyco sis; snomeddesc ription: Onychomyco sis; Report Immunity to Registry: Yes; Notes: feet digits; Not Available [facility] 4 06:58:57 Problem Notes None recorded. Medical Equipment None Reported. Allergies Allergen ID Allergen Name Allergen Category Reaction Reaction Severity Criticality Documentation Date Start Date Code Code System Note Provider Name and Address Organization Details Recorded Time 1345 Product containin g penicilli n (product) medicatio n Not available Not [facility] 04/13/2025 06748 8001 SNOMED Cheryl Levin MD [address] [place] [address], [place], [phone], [facility] - CHERYL LEVIN MD [facility] 5 12:13:34 714 Reglan medicatio n Not available Not available Not available 10/31/20232012 9230 RxNorm Comme nt: adver se_ev ent_t ype: 51117 8002; ; Not Available [facility] 4 06:50:47 715 Motrin medicatio n Not available Not available Not available 10/31/2023201248 8 RxNorm Comme nt: adver se_ev ent_t ype: 82784 8002; ; Not Available [facility] 4 06:50:47 716 doxycycli ne Not available Not available Not available Not available 10/31/20232017 3640 RxNorm Comme nt: adver se_ev ent_t ype: 32199 8002; ; Not Available [facility] 4 06:50:47 Medications Name Sig Start [...] HORAS CUANDO SEA NECESARI O PARA EL DOLOR-MA LD POR 10 D active Not Available [...] Available Liquid Nutrition oral 0 Quantity : 79702; Duration : 30; 0 refill(s ) 09/30 [...] Not Available Not Available Not Available Flulaval 0637-6728 45 mcg (15 mcg x 3)/0.5 mL [...] Not Available Not Available Not Available Afluria 2557-3531 45 mcg (15 mcg x 3)/0.5 mL [...] Pneumoco ccal conjugat e PCV20, polysacc haride [id number] conjugat e, adjuvant , PF; Not Available Not Available Not Available Vitals Date Recorded Body height Heart rate Respiratory rate Body mass index (BMI) Body weight Systolic And Diastolic Provider Name and Address Organization Details Last Updated DateTime 5 162.56 cm 81 /min 20 /min 24.9 kg/m2 82279.8 9 g 136/89 mm[Hg] Cheryl Levin MD [address] [place] [address] L[place], [phone], [facility] - CHERYL LEVIN MD [facility] 5 15:01:34 Date Recorded Heart rate Body mass index (BMI) Body weight Respiratory rate Systolic And Diastolic Provider Name and Address Organization Details Last Updated DateTime 12/30/2024 92 /min 26.1 kg/m2 68676.04 g 16 /min 108/83 mm[Hg] Cheryl Levin MD [address] [place] [address], [phone], LYNN LEVIN MD [facility] 16:33:39 Date Recorded Body height Provider Name an d Address Organization Details Last Updated DateTime 12/30/2024 162.56 cm Jany LEVIN MD [facility] 12/30/2024 15:08:38 Date Recorded Body height Heart rate Respiratory rate Body temperature Body mass index (BMI) Body weight Systolic And Diastolic Provider Name and Address Organization Details Last Updated DateTime 162.56 cm 103 /min 18 /min 98.4 [degF] 25.1 kg/m2 45893.4 9 g 110/80 mm[Hg] Aleksandra LEVIN MD [facility] 11:09:16 Date Recorded Heart rate Respiratory rate Body temperature Body mass index (BMI) Body weight Systolic And Diastolic Provider Name and Address Organization Details Last Updated DateTime 89 /min 20 /min 98.1 [degF] 24.5 kg/m2 03511.7 1 g 118/83 mm[Hg] Lexis LEVIN MD [facility] 15:46:27 Date Recorded Body height Provider Name an d Address Organization Details Last Updated DateTime 04/13/2025 162.56 cm Freddy LEVIN MD [facility] 04/13/2025 11:36:06 Date Recorded Body height Heart rate Body temperature Body mass index (BMI) Body weight Systolic And Diastolic Provider Name and Address Organization Details Last Updated DateTime 162.56 cm 90 /min 98 [degF] 26.8 kg/m2 33014.4 1 g 137/78 mm[Hg] Jany LEVIN MD [facility] 11:25:24 Social History None recorded. Functional Status [...] MCV4O 9 completed Not Available [facility] 10/31/2023 06:54:49 zoster live 9 completed Not Available [facility] 10/31/2023 06:54:50 Influenza, split virus, quadrivalent, preservative 9 completed Not Available [facility] [facility] 10/31/2023 06:54:50 Influenza, split virus, quadrivalent, preservative 8 completed Not Available [facility] 10/31/2023 06:54:50 Influenza, split virus, quadrivalent, preservative 0 completed Not Available [facility] 10/31/2023 06:54:50 Influenza, split virus, trivalent, PF 5 completed Cheryl Levin MD [address] [place] [address], [phone], [facility] CHERYL LEVIN MD [facility] 07/23/2025 21:14:01 Past Encounters Encounter ID Performer Location Encounter Start Date Encounter Closed Date Diagnosis/Indication Diagnosis SNOMED-CT Code Diagnosis ICD10 Code Diagnosis IMO Codes Diagnosis Note [id number] Cheryl Levin MD Main Office [address] [place] [address] 6 05/25/2023 09:48:40 06/27/2023 09:16:16 Human immunodeficiency virus infection 08004975 B20 HIV. Continue Biktarvy 1 tab po [...] reviewed [id number] Cheryl Levin MD Main Office [address] [place] [address] 6 08/24/2023 09:33:00 08/24/2023 10:46:09 Human immunodeficiency virus infection 55364186 B20 HIV. Continue Biktarvy 1 tab po [...] /Tivicay.s afe sex.labs Septemberlan of care reviewed [id number] Cheryl Levin MD Main Office [address] [place] [address] 6 11/12/2023 11:34:42 11/16/2023 15:00:47 Human immunodeficiency virus infection 69414333 B20 HIV.Contin ue Biktarvy 1 tab po qd.U=Upt aware of PreP availabili ty.condom use.plan of care reviewed Adult [facility] th examination 742856687 Z00.00 [id number] Cheryl Levin MD Main Office [address] [place] [address] 6 11/21/2023 10:59:43 11/23/2023 14:55:21 [id number] Cheryl Levin MD Main Office [address] [place] [address] 6 01/14/2024 09:27:39 01/16/2024 13:51:41 [id number] Cheryl Levin MD Main Office [address] [place] [address] 6 01/16/2024 10:24:39 01/16/2024 11:50:10 Human immunodeficiency virus infection 60466852 B20 HIV.Contin ue Biktarvy 1 tab po qd.U=Upt aware of PreP availabili ty.condom use.labs todayplan of care reviewed Candidiasis of mouth 797 56293 B37.0 nystatin 5cc po qid x 14 days. swish and spit.call with any side effects.ba cterial/fu ngal swab obtained. 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 [id number] Cheryl Levin MD Main Office [address] [place] [address] 02/14/2024 12:00:04 02/14/2024 12:24:19 Human immunodeficiency virus infection 58835066 B20 HIV.Contin ue Biktarvy 1 tab po qd.U=Upt aware of PreP availabili ty.DoxyPEP reviewedco ndom use.labs todayplan of care reviewed Methicilli n resistant Staphylococcus aureus infection 488392035 A49.02 swab culture 01/2024 Candidiasi s of esophagus 92744843 B37.81 sandy glabratafl uconazole 100mg po qd x 14 dayscall with any side effects. Weight loss 92605848 R63 .4 contributi ng factor sandy, MRSA, HIV among othermight benefit from Serostim.w ill review with himG tube [id number] Cheryl Levin MD Main Office [address] [place] [address] 02/21/2024 11:08:05 02/21/2024 12:09:56 Human immunodeficiency virus infection 23006499 B20 HIV.Contin ue Biktarvy 1 tab po qd.complia nce reviewedU= Upt aware of PreP availabili ty.DoxyPEP reviewedco ndom use.labs todayplan of care reviewed Candidiasi s of esophagus 10210500 B37.81 sandy glabratato complete fluconazol e 100mg po bid x 14 days: (10mg/ml) 10ml by G tube bidcall with any side effects. Methicilli n resistant Staphylococcus aureus infection 323294566 A49.02 swab culture 4curr ently on Bactrim oral suspension (200mg- 40mg/5ml) since 68-20ml q 12 hrs G tube x 10 days Cachexia a ssociated with AIDS 893156994 B20 R64 weight loss. frail. progressin g.contribu ting factor sandy, MRSA, HIV among other. G tubeSerost im 6mg sq qd will be prescribed with the goal of helping w weight gain, increase muscle mass gain, and increase enduranceh e has visiting nurse who could assist with daily injections . [id number] Cheryl Levin MD Main Office [address] [place] [address] 02/25/2024 10:24:53 02/25/2024 11:09:27 Human immunodeficiency virus infection 13680010 B20 HIV.Contin ue Biktarvy 1 tab po qd.complia nce reviewedU= Ucondom use.labs todayplan of care reviewed Candidiasi s of esophagus 55368577 B37.81 sandy glabratawi ll continue fluconazol e 200 mg po qd x 14 days: (10mg/ml) 10ml by G tube QD;will on next appointmen t for further tx va suppressio n tx.call with any side effects. Cachexia a ssociated with AIDS 532719784 B20 R64 weight loss. frail. progressin g.approved Serostim 6mg sq qd; awaiting delivery to the office. will be prescribed with the goal of helping w weight gain, increase muscle mass gain, and increase enduranceh e has visiting nurse who could assist with daily injections .ensure tidmegace 625 mg qd. Methicilli n resistant Staphylococcus aureus infection 769315756 A49.02 swab culture 01/2024will complete 10 days of Bactrim oral suspension (200mg- 40mg/5ml) since 02/15-20ml q 12 hrs G tube on 02/27/24 [id number] Cheryl Levin MD Main Office [address] [place] [address] 03/14/2024 10:24:00 03/14/2024 10:29:25 Cachexia associated with AIDS 518288036 R64 B20 gained 2 pounds. probably improved sandy esophagiti s 2nd to inhaled steroids.S Tart Serostim 6mg s/c qd abdomen. first dose administer ed today. Tolerated well; goalis to increase weight, endurance and muscle massHe will have ROLL RECLAIMER and nurse help with daily injections .potential side effects reviewed.t o call with any concernshe will picking machine operator helper Megace today, and start it as well(G tube) qd to increase apetitte Human immunodeficiency virus infection 21875784 B20 HIV.Contin ue Biktarvy 1 tab po qd.padmini hoffman reviewed Candidiasi s of esophagus B37.81 sandy glabratawi ll continue 2 more weeks of fluconazol e 200 mg po qd x 14 days: (10mg/ml) 10ml by G tube QD;might benefit from qw suppressio n tx.call with any side effects. [id number] Cheryl Levin MD Main Office [address] [place] [address] 04/18/2024 09:52:00 04/18/2024 11:19:01 Cachexia associated with AIDS 081856215 R64 B20 124 lbs. gained weightcont inue Serostim 6mg s/c qd abdomen. goalis to increase weight, endurance and muscle masscontin ue Megace G tube qdCNA and nurse helping with compliance and tx.potenti al side effects reviewed.t o call with any concerns Human immunodeficiency virus infection 74365358 B20 HIV.Contin ue Biktarvy 1 tab po qd.padmini hoffman reviewedla bs today Candidiasi s of esophagus 7.81 sandy glabratawi ll continue fluconazol e 200 (10ml) mg G tube qw for suppressio n tx.call with any side effects. Aspiration pneumonia 422 534265 J69.0 get discharge summaryon antibiotic ;eat standing or sitting; [place] [id number] Cheryl Levin MD Main Office [address] [place] [address] 05/20/2024 10:17:53 05/20/2024 12:44:49 Cachexia associated with AIDS 769604234 R64 B20 continue Serostim 6mg s/c qd abdomen. goal is to increase weight, endurance and muscle masscontin ue Megace G tube qd 5cc qdCNA and nurse helping with compliance and tx.potenti al side effects reviewed.t o call with any concerns Human immunodeficiency virus infection 82081211 B20 HIV.Contin ue Biktarvy 1 tab po qd.padmini hoffman reviewedla bs today Candidiasi s of esophagus B37.81 sandy glabrataho ld fluconazol e for nowSTART 1 tab po bid x 21 says for esophageal sandy glabrata.c all with any side effects. [id number] Cheryl Levin MD Main Office [address] [place] [address] 06/18/2024 10:10:09 06/18/2024 11:12:33 Cachexia associated with AIDS 881552372 R64 B20 continue Serostim 6mg s/c qd abdomen. goal is to increase weight, endurance and muscle massCNA and nurse helping with compliance and tx.megace on holdpotent ial side effects reviewed.t o call with any concerns Human immunodeficiency virus infection 96417697 B20 HIV.Contin ue Biktarvy 1 tab po qd.complia dinorahe reviewedla bs today Inflammato ry disease of liver 963118683 K75.9 Suspect 2nd to concomitan t medication s. ongoingdo not re-start fluconazol e nor megacenega tive infectious and non-infect ious workupto call or ER if jaundice, abd pain, n/v/d marce mendy History of calculus of kidney 370197129 Z87.442 u/s 05/[address] scan 02/2024hydr ation Aspiration pneumonia 422 063137 J69.0 s/p aspiration on CT AngioNPO per instructio n given to him in hospital; nutrition by G tubes/p (ceftriaxo ne,Azithro ,Flagyl while in Hospital;d ischarged on azithro and cefpodoxim e x 3 days which he completed. leg elevationa void sedating meds as much as possible Deep venou s thrombosis of lower extremity 146779224 I82.409 left lower extremity doppler showed DVT of gastrocnem ius vein;on tx w w Eliquis bid . Pulmonary embolism [address] Angio was positive for Acute lobar PEs/p heparin; ongoing Eliquis bidmed list reviewed.n o drug use for years. not on maintenanc e tx.denies current ETOH use. [id number] Cheryl Levin MD Main Office [address] [place] [address] 07/15/2024 15:10:10 07/15/2024 15:45:30 Cachexia associated with AIDS 203152217 R64 B20 continue Serostim 6mg s/c qd abdomen. goal is to increase weight, endurance and muscle masspotent ial side effects reviewed.t o call with any concerns Human immunodeficiency virus infection 02205971 B20 HIV.Contin ue Biktarvy 1 tab po qd.complia nce reviewedla bs Candidiasi s of esophagus 81 on clotrimazo le. swish and spit qd Medication monitoring 39 7676594 Z51.81 [id number] Cheryl Levin MD Main Office [address] [place] [address] 10/21/2024 12:22:54 10/21/2024 16:48:51 Cachexia associated with AIDS 128887577 R64 B20 improvedco ntinue Serostim 6mg s/c qd abdomen. goal is to increase weight, endurance and muscle masspotent ial side effects reviewed.m ay start decreasing dose in 1-2 months if further weight gainon Boost protein shakesto call with any concerns Human immunodeficiency virus infection 83886243 B20 HIV.Contin ue Biktarvy 1 tab po qd.compljordon nce reviewedla bs Candidiasi s of esophagus 81 on clotrimazo le. swish and spit qd/BID PRN [id number] Cheryl Levin MD Main Office [address] [place] [address] 11/25/2024 11:48:55 11/25/2024 14:20:54 Cachexia associated with AIDS 402427613 R64 B20 improvedco ntinue Serostim 6mg s/c [...] with any concerns Human immunodeficiency virus infection 07989514 B20 HIV.Contin ue Biktarvy 1 tab po qd.complia nce reviewedla bs Candidiasi s of esophagus .81 off/on; recurrento n clotrimazo le. swish and spit qd/BID PRN for suppressio n Insomnia 670831214 G47.0 0 benadryl capsules requested by patient forinsomni a and itchiness as needed.cor rect use reviewed. [id number] Cheryl Levin MD Main Office [address] [place] [address] 12/30/2024 15:04:38 12/31/2024 09:52:40 Cachexia associated with AIDS 042362821 R64 B20 improvedco ntinue Serostim 6mg s/c [...] with any concerns Human immunodeficiency virus infection 03033834 B20 HIV.Contin ue Biktarvy 1 tab po qd.compljordon copelande reviewedla bs Candidiasi s of esophagus 90203081 B37.81 off/on; recurrento n clotrimazo le. swish and spit /BID/TID PRN for suppressio n [id number] Cheryl Leivn MD Main Office [address] [place] [address] 03/09/2025 09:16:22 03/09/2025 10:12:30 Cachexia associated with AIDS 903505607 R64 B20 stable/imp roved.cont inue Serostim 6mg s/c qd abdomen. goal is to increase weight, endurance and muscle masspotent ial side effects reviewed.o n Boost protein shakescont inue megace; plan to stop in the next 2-3 monthsto call with any concerns Human immunodeficiency virus infection 36004790 B20 HIV.Contin ue Biktarvy 1 tab po qd.complia nce reviewedla bs Candidiasi s of esophagus 17291402 B37.81 off/on; recurrento n clotrimazo le. swish and spit /BID/TID PRN for suppressio nSTART Fluconazol e 100mg po qd x 21 days: esophageal sandy; then continue clotrimazo le for suppressio noral swab for sandy/ba cteria obtained Abnormal a nal Papanicolaou smear 315611132 R85.619 [id number] Anal PAP sample obtained/p reformed: no abnormalit yGC/chlamy chi rectal done [id number] Cheryl Levin MD Main Office [address] [place] [address] 04/13/2025 10:41:03 04/13/2025 12:37:30 Cachexia associated with AIDS 500972679 R64 B20 stable/imp roved. has gained weight.con tinue Serostim 6mg s/c qd abdomen. goal is to increase weight, endurance and muscle masspotent ial side effects reviewed.o n Boost protein shakeson megace PRNto call with any concerns Human immunodeficiency virus infection 05209427 B20 HIV.Contin ue Biktarvy 1 tab po qd.complia nce reviewedla bshe is aware might start IV med q 6 months and IM cabotegrav ir QOM Candidiasi s of esophagus B37.81 off/on; recurrento n clotrimazo le. swish and spit /BID/TID PRN for suppressio non Fluconazol e 100mg po qd x 21 days: esophageal sandy; then continue clotrimazo le for suppressio n [id number] Cheryl Levin MD Main Office [address] [place] [address] 07/23/2025 11:10:39 07/23/2025 12:08:01 Cachexia associated with AIDS 943482087 R64 B20 stable/imp roved. has gained weight.STO P Serostim and Megace in setting of Kaposi diagnosis; GH could make it contribute to worsening. on Boost protein shakesto call with any concerns Human immunodeficiency virus infection 41980484 B20 HIV.Contin ue Biktarvy 1 tab po qd.complia nce reviewedla bsflu vaccine administer ed Candidiasi s of esophagus 31577460 B37.81 off/on; recurrent. on clotrimazo le. 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 Has PE on tx.usually colonizer. no need to tx Mycobacter ia for now. no pulmonary sx and no CT pulmonary findings.t o call if cough, hemoptysis , fever, weight loss, chills, sweats Pulmonary embolism [address] [address] positives/ p heparin; ongoing Eliquis bidmed list reviewed.n o drug use for years. not on maintenanc e tx.denies current ETOH use. Kaposi's s arcoma (clinical) 968920135 C46.9 20131 07/07 biopsy - left elbowdiagn osis reviewed with pt and PCAon HIV treatmentr efer to Oncology - importance of f/u evaluation reviewed.f /u Dermatolog y - pt' [facility] reports pt has f/u Health Concerns Section Related Observation LastModified by Organization Detai ls LastModified Time None Recorded Concern Status LastModified by Organization Details LastModified Time None Recorded Advance Directives Directive None Recorded Payers Insurance Date Sequence Insurance Name Policy Number Policy Perry Covered Member ID Perry Member ID Guarantor Name 07/23/2025 1 [facility] - DOS ON OR AFTER 2022 - MEDICARE ADVANTAGE [place] (MEDICARE REPLACEMENT/AD VANTAGE - PPO) Benjamin Juan David [id number] Benjamin Juan David Notes Date Note Type Note Provider Name and Address Organization Details Recorded Time 11/25/2024 text/html ROS as noted in the [...] cyst removal in recent weeks. outpatient/day procedure. [facility] in room with his consent. 07/2025 HIV VL nondetceted; ALt/AST wnl; eGFR>60; HF1=837 Cheryl Levin MD [address] [place] [address], [phone], LYNN LEVIN MD [facility] 11/26/2024 15:09:42 12/30/2024 text/html ROS as noted in the [facility] HIVOn Biktarvy 1 tab po qd.reports daily compliance. denies missing dose.thrush. gets on/off and using clotrimazole to treat/suppress.gaining weight: 120lbs ---145lbs --152 lbsno aspirationgetting serostim daily for cachexia,no side effects.might get G tube removed in February 2025.no hospitalizations since he was last seenmed list reviewed. [facility]. came in today with a a friendVL nondetceted;07/2025 HIV VL nondetceted; ALt/AST wnl; eGFR>60; LY2=921 Cheryl Levin MD [address] [place] [address], [phone], LYNN LEVIN MD [facility] 12/30/2024 16:39:33 03/09/2025 text/html ROS as noted in the [facility] HIVOn Biktarvy 1 tab po qd.reports daily compliance. denies missing dose.thrush ongoing. has flareup today.gets on/off and using clotrimazole to treat/suppress.getting serostim daily for cachexia, helpingno side effects.might get G tube removed in February 2025.med list reviewed. will get anal pap VL nondetceted;02/07/2024 HIV Vl=24; AST =28 ALT 109; eGFR=90;07/2025 HIV VL nondetceted; ALt/AST wnl; eGFR>60; BE1=081 Cheryl Levin MD [address] [place] [address], [phone], LYNN LEVIN MD [facility] 03/09/2025 13:13:07 04/13/2025 text/html ROS as noted in the [facility] HIVOn Biktarvy 1 tab po qd.Willing to get switched to infusion/cabotegravir injection if he is a candidate. prefers no POhas been choking on certain foods like bread; last episode last week where camera engineer had help him when he choked.he feels well.thrush ongoing 03/09/25 sandy. he did take the 21 days of fluconazole. fluconazole prn for active tx;gets on/off and using clotrimazole to treat/suppress.weight has been stable. on serostim and protein boost shakes. has been on megace PRN.getting serostim daily for cachexia,no side effects. not hospitalized. no pneumonia.camera engineer struggling with nurses that go to his home. he missess Biktarvy on weekends when nurses do not show up for visits; his meds are locked and they are accessed and administered by the nurses.pt will request list of meds that pt is currently taking.med list reviewed.EKG ok.2024 anal PAP neg for abnormalities; no [id number] VL=24; eGFR>60;02/07/2024 HIV Vl=24; AST =28 ALT 109; eGFR=90;07/2025 HIV VL nondetceted; ALt/AST wnl; eGFR>60; GL5=956 Cheryl Levin MD [address] [place] [address], [phone], [facility] CHERYL LEVIN MD [facility] 04/15/2025 11:00:52 07/23/2025 text/html ROS as noted in the [...] 7 months ago. saw Dermatology for biopsy (Denise). pt and [facility] says they did not know of skin biopsy results; but theyd o report have f/u w Dermatology. 2024 anal PAP neg for abnormalities; no [id number] VL=24; eGFR>60;02/07/2024 HIV Vl=24; AST =28 ALT 109; eGFR=90;07/2025 HIV VL nondetected; ALt/AST wnl; eGFR>60; XO8=636 Cheryl Levin MD [address] [place] [address], [phone], L[facility] - CHERYL LEVIN MD [facility] 07/23/2025 21:14:14
--- OUTSIDE RECORDS SUMMARY | 2025-08-05 11:48 | XMS_ITS | Encounter Summary ---
Author Organization [employer] Address [address] [place] [address] Care Team Providers Care Profile Saw Setup Operator Name Role Phone Physician, Pcp Unknown Primary Care Provider Bina vailable Encounter Details Date Type Department Care Team (Late Contact Info) Description 03/10/2025 Lab Requisition [facility] - Main Lab [address] [facility] [place] [address] MD [address] [place] [address] Unspecified abnormal cytological findings in specimens from [...] Upcoming Encounters Date Type Department Care Team ([facility] Contact Info) Description 09/15/2025 10:00 AM EST Office Visit Orthopedic Surgery - [place] [address] [phone] Kb Benitez DPM [address] [address] documented as of this encounter Procedures Procedure [...] EDT) Final Diagnosis Specimen sent to [facility] for Anal cytology with HPV CoTest. Their interpretation is as follows: Anal, Rectum (ThinPrep): Satisfactory for Evaluation. Transformation zone components absent. Negative for Intraepithelial Lesion or Malignancy. Disclaimer This test has been modified from the tech intern's instructions. Its performance characteristics were determined by [facility] in a manner consistent with CLIA requirements. This test has not been cleared or approved by the U.S. Food and Drug Administration Report signed electronically by: Qi Lehman M.D. on 16 Mar 2025 at 13:55 at [facility], [address] [facility] (CLIA [id number]) HPV Anal Detect/Genotyping, PCR: High Risk HPV [...] was ordered in the context of a [facility] Non-SPECIMEN BOSS Cytology case; this result should be interpreted within the context of the Non-SPECIMEN BOSS cytology report. Resulted 12 Mar 2025 at 17:00 by [facility], [address] [facility] (CLIA [id number]) Full report attached. 03/17/2025 2:31 PM EDT [facility] Disclaimer Unless otherwise specified, all tissue is 10% NB formalin fixed and paraffin embedded. Technical cytopathology services provided by [facility], at [address] [place] [address] (CLIA # [id number]/Angel Villalobos MD, Executive Secretary Social Welfare.) 03/17/2025 2:31 PM EDT [facility] Brushing/Spatula Anal structure / Unknown 03/09/2025 03/10/2025 9:22 AM EDT us [address] MD LAB CYTOLOGY ORDERABLES F inal Result [facility] [address] [place] [address], documented in this encounter Visit Diagnoses Diagnosis Unspecified abnormal cytological findings in specimens from anus documented in this encounter Care Teams Profile Saw Setup Operator Relationship Specialty Start Date End Date Physician, Pcp Unknown PCP - General 03/10/25 documented as of this encounter
--- OUTSIDE RECORDS SUMMARY | 2025-08-05 11:48 | XMS_ITS | Encounter Summary ---
Author Organization [employer] Address [address] [place] [address] Care Team Providers Care Tar Roofer Name Role Phone Physician, Pcp Unknown Primary Care Provider Bina vailable Encounter Details Date Type Department Care Team (Late Contact Info) Description 03/09/[address] [facility] - Main Lab [address] [facility] [place] [address] MD [address] [place] [address] Candidal esophagitis ([facility] V24, [facility] V28) Social History Tobacco Use Types Packs/Day [...] Care Team ([facility] Contact Info) Description 09/15/2025 10:00 AM EST Office Visit Orthopedic Surgery - [place] 250 175 [facility] [address] [place] [phone] Kb Benitez DPM [address] [address] documented as of this encounter Procedures Procedure Name Priority Date/Time Associated Diagnosis Comments CULTURE FUNGUS, OTHER THAN SKIN HAIR OR NAILS Routine 03/09/2025 12:00 AM EDT Candidal esophagitis ([facility] V24, [facility] V28) CULTURE MISCELLANEOUS Routine 03/09/2025 12:00 AM EDT Candidal esophagitis ([facility] V24, [facility] V28) CHLAMYDIA TRACHOMATIS AND NEISSERIA GONORRHOEAE PCR Routine 03/09/2025 12:00 AM EDT Candidal esophagitis ([facility] V24, [facility] V28) documented in this encounter Results * [...] ORDERABLES Final Result [facility] [address] [place] [address], [place] [phone] * (ABNORMAL) Culture miscellaneous (03/09/2025 12:00 AM [...] ORDERABLES Final Result [facility] [address] [place] [address], * Chlamydia trachomatis and Neisseria gonorrhoeae molecular [...] ORDERABLES Final Result [facility] [address] [place], [place] [address] [phone] documented in this encounter Visit Diagnoses Diagnosis Candidal esophagitis ([facility] V24, [facility] V28) Candidiasis of the esophagus documented in this encounter Care Teams Tar Roofer Relationship Specialty Start Date End Date Physician, Pcp Unknown PCP - General 03/10/25 documented as of this encounter
--- OUTSIDE RECORDS SUMMARY | 2025-08-05 11:48 | XMS_ITS | Clinical Summary ---
Author Organization 175 [facility] Address 175 [place] [address] Phone Care Team Providers Care Gamewell Operator Name Role Phone Physician, Pcp Unknown [...] 10:15 AM EDT Office Visit Orthopedic Surgery [facility] [address] [phone] Kb Benitez DPM Pain in toes of both feet (Primary Dx); Metatarsalgia of right foot; Arthritis of both feet; Contracture, left foot; Dermatophytosis, nail 05/19/2025 9:30 AM EDT Office Visit Orthopedic Surgery [facility] [address] [phone] Kb Benitez DPWilmer Pain in toes of both feet (Primary Dx); Metatarsalgia of right foot; Arthritis of both feet; Dermatophytosis, nail; Contracture, left foot 05/12/2025 Telephone Orthopedic [facility] [address] [phone] EliKb eason DPM 05/05/2025 9:45 AM EDT Consult Orthopedic Surgery - [place] [address] [phone] Kb Benitez DPM Pain in toes of both feet (Primary Dx); Arthritis of both feet; Metatarsalgia of right foot; Onychogryphosis; Dermatophytosis, nail from Last 3 Months Surgical History Surgery Date Site/Laterality Comments EYE SURGERY Left PROCEDURE: HISTORICAL EYE SURGERY OTHER SURGICAL HISTORY PROCEDURE: ---- OTHER ----; COMMENT: hemorrhoids Medical History Medical History Date Comments Seizures ([facility] V24, [facility] V28) 06/29/2016 DX:Seizures ([facility]); COMMENT: F/u with neuro at [place] Dr Costello HIV (human immunodeficiency virus infection) ([facility] V24, [facility] V28) 06/29/2016 DX:HIV (human im munodeficiency virus [...] AM EST Office Visit Orthopedic Surgery - [place] [address] [phone] Kb Benitez DPM [address] [address] Health Maintenance Due Date Last Done Comments [...] Personal/Family Self 1965 [address] [place] [address] MEDICAID - [place] [employer] MEDICARE Member Subscriber Plan / Payer (Ef fective 2017-Present) Name:VICKIE GROVER Relation to Subscriber:Self Name:Vickie Fall Payer ID:[id number] Group ID:[id number] Type:Not on file Address: [address] [place] [address] Care Teams Gamewell Operator Relationship Specialty Start Date End Date Physician, Pcp Unknown PCP - General 03/10/25
== END 2025-08-05 10:22 | disposition home or self-care (01) ==
LOC: HO.ENCR 10:05
PROVIDERS: PCP Student in an Organized Health Care Education/Training Program; Visit Provider Student in an Organized Health Care Education/Training Program
DX: M81.0 Age-related osteoporosis without current pathological fracture (principal)

== ENCOUNTER → 2025-08-05 10:04 | Outpatient (BNVA) | payer OTHER, SELFPAY | PROVIDERS: PCP Student in an Organized Health Care Education/Training Program; Visit Provider Student in an Organized Health Care Education/Training Program | DX: M81.0 Age-related osteoporosis without current pathological fracture (principal) | CPT/HCPCS: 96372; J3111 ==

== ENCOUNTER 2025-08-19 09:42 | Outpatient (AMB) | payer OTHER, SELFPAY ==
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
== END 2025-08-19 10:02 | disposition home or self-care (01) ==
LOC: HO.HSM 09:42
PROVIDERS: PCP Student in an Organized Health Care Education/Training Program; Visit Provider Psychiatry & Neurology Neurology
DX: G44.209 Tension-type headache, unspecified, not intractable (principal); G25.9 Extrapyramidal and movement disorder, unspecified
CPT/HCPCS: 99214

== ENCOUNTER → 2025-08-19 09:42 | Outpatient (BNVA) | payer OTHER, SELFPAY | PROVIDERS: PCP Student in an Organized Health Care Education/Training Program; Visit Provider Psychiatry & Neurology Neurology | DX: G44.209 Tension-type headache, unspecified, not intractable (principal); G25.9 Extrapyramidal and movement disorder, unspecified; Z79.899 Other long term (current) drug therapy | CPT/HCPCS: 99212 ==

== ENCOUNTER 2025-08-31 10:01 | Outpatient (AMB) | payer OTHER, SELFPAY ==
--- NOTE | 2025-08-31 10:35 | AM.OFFVISNUR ---
Intake Visit Reasons: Evenity #12 Allergies Seasonal Allergies Allergy (Intermediate, Verified 07/20/25 09:12) Eye Drainage codeine (From Tylenol-Codeine #3) Allergy (Mild, Verified 07/20/25 09:12) Rash levofloxacin (From Levaquin) Allergy (Mild, Verified 07/20/25 09:12) Rash metoclopramide (From Reglan) Allergy (Mild, Verified 07/20/25 09:12) Rash acetaminophen (Tylenol-Codeine #3) Allergy (Unknown, Verified 07/20/25 09:12) Rash Penicillins (PENICILLINS) Allergy (Unknown, Verified 07/20/25 09:12) Rash ibuprofen (From Motrin) Adverse Reaction (Unknown, Verified 07/20/25 09:12) Reflux Office Meds romosozumab-aqqg 210 mg/2.34 mL(105 mg/1.17 mL x2)subcutaneous syringe Performing Provider: Ritu Scott MD Performing Location: [facility] Administered by: Na Croft RN on 08/31/25 10:10 Dose Route Admin Location Dispensed Lot Number Expiration Date [place] Administrative Services Officer 210 mg subcut bilateral upper arms 2.34 mL [id number] 01/08/28 82613-171-83 [employer] Total Dispensed Waste 2.34 mL 0 % Comments: Pt accompanied by [employer] who interpreted visit. Pt declined bilingual interpreter. No adverse reactions reported from previous injection. Pt tolerated injection well. Pt informed that the plan is to transition to reclast in about 4 weeks. Pt is aware that he will need to complete labs prior to appt and appt will be scheduled with the infusion center. Pt had no further questions at this time. Assessment & Plan Assessment & Plan Orders: Orders AMB Romosozumab Injection Patient Supplied Today M81.0 - Age-related osteoporosis without current pathological fracture Coding
--- OUTSIDE RECORDS SUMMARY | 2025-08-31 12:00 | XMS_ITS | Encounter Summary ---
Author Organization [facility] Address [address] [place] [address] Care Team Providers Care Clin Nurse Spec Name Role Phone Physician, Pcp Unknown Primary Care Provider Bina vailable Encounter Details Date Type Department Care Team (Late Contact Info) Description 03/10/2025 Lab Requisition [facility] - Main Lab [address] [facility] [place] [address] MD [address] [place] [address] Unspecified abnormal cytological findings in specimens from [...] Department Care Team ([facility] Contact Info) Description 09/15/2025 10:00 AM EST Office Visit Orthopedic Surgery - [place] [address] [phone] Kb Benitez DPM [address] [address] documented as of this encounter Procedures Procedure [...] This test has been modified from the iv technician's instructions. Its performance characteristics were determined by [facility] in a manner consistent with CLIA requirements. This test has not been cleared or approved by the U.S. Food and Drug Administration Report signed electronically by: Qi Lehman M.D. on 16 Mar 2025 at 13:55 at [facility], [address] [facility] (CLIA [id number]) HPV Anal Detect/Genotyping, PCR: High Risk HPV [...] in the context of a [facility] Non-JEWELRY CUTTER Cytology case; this result should be interpreted within the context of the Non-JEWELRY CUTTER cytology report. Resulted 12 Mar 2025 at 17:00 by [facility], [address] [facility] (CLIA [id number]) Full report attached. 03/17/2025 2:31 PM EDT [facility] at 1431 EDT Disclaimer Unless otherwise specified, all tissue is 10% NB formalin fixed and paraffin embedded. Technical cytopathology services provided by [facility], at [address] [place] [address] (CLIA # [id number]/Angel Villalobos MD, Slide Developer.) 03/17/2025 2:31 PM EDT [facility] Brushing/Spatula Anal structure / Unknown 03/09/2025 03/10/2025 9:22 AM EDT us [address] MD LAB CYTOLOGY ORDERABLES F inal Result [facility] [address] [place] [address], documented in this encounter Visit Diagnoses Diagnosis Unspecified abnormal cytological findings in specimens from anus documented in this encounter Care Teams Clin Nurse Spec Relationship Specialty Start Date End Date Physician, Pcp Unknown PCP - General 03/10/25 documented as of this encounter
--- OUTSIDE RECORDS SUMMARY | 2025-08-31 12:00 | XMS_ITS | Clinical Summary ---
Author Organization [facility] Address [address] [address] Phone Care Team Providers Care Ferryboat Operator Name Role Phone Gaetano Gibbons MD Primary Care Provider Social History Tobacco Use Types Packs/Day Years [...] Medical Devices Not on file Care Teams Ferryboat Operator Relationship Specialty Start Date End Date Gaetano Gibbons MD [email or web address] PCP - General Family Medicine 07/02/23 Additional Source Comments The information contained in this document represents components of the legal health record. It is not the complete legal health record.[facility]
--- OUTSIDE RECORDS SUMMARY | 2025-08-31 12:00 | XMS_ITS | Encounter Summary ---
Author Organization [facility] Address [address] [place] [address] Care Team Providers Care Tape Duplicator Name Role Phone Physician, Pcp Unknown Primary Care Provider Bina vailable Encounter Details Date Type Department Care Team (Late Contact Info) Description 03/09/2025 Lab Requisition [facility] - Main Lab [address] [facility] [place] [address] MD [address] [place] [address] Candidal esophagitis ([facility] V24, [facility] V28) Social History Tobacco Use Types Packs/Day [...] Upcoming Encounters Date Type Department Care Team ([facility] Contact Info) Description 09/15/2025 10:00 AM EST Office Visit Orthopedic Surgery - [place] 250 175 [facility] [address] [place] [phone] Kb Benitez DPM [address] [address] documented as of this encounter Procedures Procedure Name Priority Date/Time Associated Diagnosis Comments CULTURE FUNGUS, OTHER THAN SKIN HAIR OR NAILS Routine 03/09/2025 12:00 AM EDT Candidal esophagitis ([facility] V24, [facility] V28) CULTURE MISCELLANEOUS Routine 03/09/2025 12:00 AM EDT Candidal esophagitis ([facility] V24, [facility] V28) CHLAMYDIA TRACHOMATIS AND NEISSERIA GONORRHOEAE PCR Routine 03/09/2025 12:00 AM EDT Candidal esophagitis ([facility] V24, [facility] V28) documented in this encounter Results * [...] Result [facility] [address] [place] [address], [place] [phone] * (ABNORMAL) Culture miscellaneous (03/09/2025 12:00 AM [...] Result [facility] [address] [place] [address], * Chlamydia trachomatis and Neisseria gonorrhoeae molecular [...] Result [facility] [address] [place], [place] [address] [phone] documented in this encounter Visit Diagnoses Diagnosis Candidal esophagitis ([facility] V24, [facility] V28) Candidiasis of the esophagus documented in this encounter Care Teams Tape Duplicator Relationship Specialty Start Date End Date Physician, Pcp Unknown PCP - General 03/10/25 documented as of this encounter
--- OUTSIDE RECORDS SUMMARY | 2025-08-31 12:01 | XMS_ITS | Clinical Summary ---
Author Organization 175 [facility] Address [address] [place] [address] Phone Care Team Providers Care Clinical Medical Transcriptionist Name Role Phone Physician, Pcp Unknown Primary [...] AM EDT Office Visit Orthopedic Surgery - [place] [address] [place] [phone] Kb Benitez DPM Pain in toes of both feet (Primary Dx); Metatarsalgia of right foot; Arthritis of both feet; Contracture, left foot; Dermatophytosis, nail from Last 3 Months Surgical History Surgery Date Site/Laterality Comments EYE SURGERY Left PROCEDURE: HISTORICAL EYE SURGERY OTHER SURGICAL HISTORY PROCEDURE: ---- OTHER ----; COMMENT: hemorrhoids Medical History Medical History Date Comments Seizures ([facility] V24, [facility] V28) 06/29/2016 DX:Seizures ([facility]); COMMENT: F/u with neuro at [place] Dr Costello HIV (human immunodeficiency virus infection) ([facility] V24, [facility] V28) 06/29/2016 DX:HIV (human im munodeficiency virus infection) ([facility]); COMMENT: HIV dx in 1992, f/u Dr. Street Depression 06/29/2016 DX:Depression Anxiety 06/29/2016 DX:Anxiety; COMM ENT: F/u [facility] Chronic back pain 06/29/2016 DX:Chronic nena [...] Orientation Not on file Plan of Treatment Upcoming Encounters Date Type Department Care Team (Late st Contact Info) Description 09/15/2025 10:00 AM EST Office Visit Orthopedic Surgery - [place] [address] [phone] Kb Benitez, DPWilmer [address] [address] Health Maintenance Due Date Last Done Comments [...] to complete this topic Insurance MEDICAID - [place] [employer] MEDICARE Member Subscriber Plan / Payer (Ef fective 2017-Present) Name:VICKIE GROVER Relation to Subscriber:Self Name:Vickie Fall Payer ID:[id number] Group ID:[id number] Type:Not on file Address: [address] [place] [address] Care Teams Clinical Medical Transcriptionist Relationship Specialty Start Date End Date Physician, Pcp Unknown PCP - General 03/10/25
== END 2025-08-31 10:26 | disposition home or self-care (01) ==
LOC: HO.ENCR 10:01
PROVIDERS: PCP Student in an Organized Health Care Education/Training Program; Visit Provider Student in an Organized Health Care Education/Training Program
DX: M81.0 Age-related osteoporosis without current pathological fracture (principal)

== ENCOUNTER → 2025-08-31 10:01 | Outpatient (BNVA) | payer OTHER, SELFPAY | PROVIDERS: PCP Student in an Organized Health Care Education/Training Program; Visit Provider Student in an Organized Health Care Education/Training Program | DX: M81.0 Age-related osteoporosis without current pathological fracture (principal) | CPT/HCPCS: 96372; J3111 ==